=== PATIENT | female | born 1935 | race Caucasian/White ===

== ENCOUNTER → 2017-09-17 16:14 | Outpatient (CLI) | payer MEDICARE, SELFPAY ==
--- NOTE | 2017-09-17 16:22 | RAD_ITS ---
STUDY: X-RAY CHEST REASON FOR EXAM: Female, 82 years old. Cough TECHNIQUE: Frontal and lateral views of the chest were obtained. COMPARISON: August 09, 2015 FINDINGS: The lungs are hyperinflated. There are patchy airspace opacities in the right lung base. There is minimal blunting of the right costophrenic angle. The cardiac silhouette is normal in size. The mediastinum and hilar regions are unremarkable. Normal visualized pulmonary arteries. There is atherosclerotic calcification of the thoracic aorta. Sternotomy wires are present. There are diffuse degenerative changes of the visualized spine. The visualized ribs, clavicles, and shoulders are unremarkable. There is no demonstrated abnormality of the visualized upper abdomen. RAD/Chest PA and Lateral IMPRESSION: There is consolidation in the right lung base, likely pneumonia. There is a small right pleural effusion. Follow-up images are recommended after treatment. Stable COPD. Electronically Signed: Myrna San MD at 10:41 EDT Tel Direct: [phone], Service support ,
== END ==
PROVIDERS: Family Provider Family Medicine Geriatric Medicine; PCP Family Medicine Geriatric Medicine; Visit Provider Family Medicine Geriatric Medicine
DX: R05 Cough (principal); J11.1 Influenza due to unidentified influenza virus with other respiratory manifestations
CPT/HCPCS: 71046; 87633

== ENCOUNTER → 2017-10-22 14:18 | Outpatient (CLI) | payer MEDICARE, SELFPAY ==
--- NOTE | 2017-10-22 14:23 | RAD_ITS ---
STUDY: X-RAY CHEST REASON FOR EXAM: Female, 82 years old. Cough, shortness of breath. TECHNIQUE: PA and lateral views of the chest. COMPARISON: PA and lateral chest x-ray September 17, 2017. FINDINGS: The lungs are deeply expanded. Chronic appearing bibasilar fibronodular interstitial changes are again seen, greater on the right. There is clearing of the airspace component, and no new alveolar infiltrate is present. There is no demonstrated pleural abnormality. Normal size heart. Sternal cerclage wires are present from a prior sternotomy. Normal mediastinum and bar. Normal visualized pulmonary arteries. Normal visualized aortic arch and descending thoracic aorta. There are stable diffuse degenerative changes of the visualized thoracic spine. Normal visualized ribs, clavicles, and shoulders. There is no demonstrated abnormality of the visualized soft tissue structures of the upper abdomen. RAD/Chest PA and Lateral IMPRESSION: 1. Improved inspiratory effort with interval clearing of the alveolar component of patchy right base density since prior study. Chronic appearing bibasilar fibronodular interstitial changes persist, greater on the right. 2. Prior median sternotomy. Heart size and upper pulmonary vascular pattern normal. Electronically Signed: Jayden Monique MD at 15:52 EDT , Service support ,
[2017-10-22 16:44] LABS: Absolute Lymphocyte Count 6.59 X10^3/ul (0.83-4.51); Absolute Neutrophil Count 3.1 X10^3/uL (2.0-7.7); Basophil# 0.23 X10^3/uL; Basophil% 2.1 % (0-1); Eosinophil# 0.07 X10^3/uL; Eosinophils% 0.6 % (0-5); Hematocrit 35.5 % (37-47); Hemoglobin 11.5 g/dl (12.0-15.0); Lymphocyte # 6.59 X10^3/ul (4.0); Lymphocyte % 59.1 % (19-41); Mean Corp Hgb Conc 32.4 g/gl (32-36); Mean Corpuscular Hgb 30.1 pg (27.0-32.0); Mean Corpuscular Volume 92.9 fL (81-99); Mean Platelet Vol. 10.2 fl (6.2-12.0); Monocyte# 1.11 X10^3/uL; Neutrophil # 3.13 X10^3/uL (2.7-7.7); Platelet Count 251 K/mm3 (150-450); RBC Distribution Width CV 14.5 % (11.6-14.6); RBC Distribution Width SD 49.1 fl (35.1-43.9); Red Blood Count 3.82 M/mm3 (4.2-5.4); White Blood Count 11.2 K/mm3 (4.4-11.0)
[2017-10-22 16:54] LABS: Anion Gap 8 (5-15); BUN 11 mg/dL (7-18); BUN/Creat Ratio 12.3 RATIO (10-20); Calcium,Total 7.7 mg/dL (8.5-10.1); Chloride 107 mmol/L (98-107); EST Glomerular Filtration Rate 64 mL/min (>60); Est Glom Filt Rate - Afr Amer 78 mL/min (>60); Glucose 90 mg/dL (74-106); Potassium 3.4 mmol/L (3.5-5.1); Sodium Level 142 mmol/L (136-145)
[2017-10-22 17:10] LABS: Differential Indicated SCAN CRITERIA MET; POSITIVE COUNT NO; POSITIVE DIFFERENTIAL YES; POSITIVE MORPHOLOGY NO
[2017-10-22 19:05] LABS: Differential Comment SCANNED; Platelet Estimate ADEQUATE (ADEQ); Smudge Cells 2+
[2017-10-22 19:06] LABS: Acanthocytes 1+
[2017-10-23 13:20] LABS: Pathologist Review Reviewed
== END ==
PROVIDERS: Family Provider Family Medicine Geriatric Medicine; PCP Family Medicine Geriatric Medicine; Visit Provider Family Medicine Geriatric Medicine
DX: J40 Bronchitis, not specified as acute or chronic (principal); R11.0 Nausea; R68.83 Chills (without fever)
CPT/HCPCS: 36415; 71046; 80048; 85025; 87633

== ENCOUNTER → 2017-10-24 12:41 | Outpatient (CLI) | payer MEDICARE, SELFPAY ==
--- NOTE | 2017-10-24 12:55 | RAD_ITS ---
STUDY: SWALLOWING STUDY REASON FOR EXAM: Female, 82 years old. Dysphagia. TECHNIQUE: The examination was performed with Speech Pathology in attendance. Under fluoroscopic observation, the patient ingested thin barium, thick barium, barium pudding, and barium coated cracker. FLUOROSCOPY TIME: 1:44 minutes/seconds. 1519 spot images were obtained. RADIOLOGIST INVOLVEMENT: Radiologist was present and providing direct supervision. COMPARISON: None. FINDINGS: The following was observed during swallowing of the various mixtures of barium: Thin Barium: There was no evidence of aspiration or laryngeal penetration. Barium Pudding: There was no evidence of aspiration or laryngeal penetration. Barium Coated Cracker: There was no evidence of aspiration or laryngeal penetration. RAD/Swallowing Function w/Video IMPRESSION: Normal tailored barium swallow study. No evidence of increased risk for aspiration. The swallow study findings were discussed with the patient by the speech pathologist at the conclusion of the examination. Please see speech pathology report for more information and recommendations. Electronically Signed: Olivier Maradiaga MD at 8:56 EDT Tel [phone], Service support ,
--- NOTE | 2017-10-24 12:55 | SP.MBSS_ITS ---
PRIMARY / SECONDARY DIAGNOSIS: dysphagia (R13.10) REFERRING PHYSICIAN: Dr. Shannan Zimmerman MD CURRENT DIET: regular textures, thin liquids DENTITION: WFL MENTAL STATUS: sufficient to participate in study RESPIRATORY STATUS: O2 via room air PREVIOUS MODIFIED BARIUM SWALLOW STUDY: none REASON FOR REFERRAL: Patient is an 82 year old female referred for a modified barium swallow (MBS) study to objectively assess the Patients oropharyngeal swallow function under fluoroscopy secondary to the diagnosis of Parkinsons disease. Patient well known to this clinician from previous intervention with the Patients spouse; Patient reporting no issues with PO intake, denies any coughing / throat clearing during PO intake, though may not be able to fully recall; reports recent 10lb unintentional weight loss over the last 2-3 months (unable to recall weight, Patient clearly not overweight). 10/22/2017 CXR revealed improved inspiratory effort with interval clearing of the alveolar component of patchy right base density since prior study; chronic appearing bibasilar fibronodular interstitial changes persist, greater on the right. MEDICAL HISTORY: Parkinsons disease, hypertension, hyperlipidemia. STUDY FINDINGS: Patient participated in a Modified Barium Swallow (MBS) study on 10/24/2017. Dr. Maradiaga was the radiologist present for this evaluation. This study was recorded in the lateral view and images were sent to PACs for storage. The following consistencies were presented to this patient for analysis of oropharyngeal swallow function: thin liquids, pudding, and a regular textured, Humera Doone cookie. Results of the MBS are as follows: PENETRATION / ASPIRATION SCALE (HATHAWAY): 1 = does not enter airway 2 = enters airway/above vocal folds/ejected 3 = enters airway/above vocal folds/not ejected 4 = enters airway/contacts vocal folds/ejected 5 = enters airway/contacts vocal folds/not ejected 6 = enters airway/below vocal folds/ejected 7 = enters airway/below vocal folds/not ejected despite effort 8 = enters airway/below vocal folds/no effort PENETRATION / ASPIRATION SCALE (SCORE) WITH VIDEOFLOROSCOPIC SCALE SCORE: Thin liquid - 5 mL tsp.: 1 Thin liquids via cup (single sip): 1 Thin liquids via cup (single sip): 2 Thin liquids via cup (single sip): 1 Thin liquids via straw (sequential swallows): 4 Thin liquids via straw (single sip): 1 Pudding via spoon: 1 Regular textured cookie: 1 Thin liquids via cup (single sip): 2 Thin liquids via cup (single sip): 2 Thin liquids via cup (chin tuck): 1 Thin liquids via cup (chin tuck): 1 IMPRESSION: DIAGNOSIS: very mild pharyngeal dysphagia (R13.13) ORAL PHASE CHARACTERIZED BY: LABIAL SEAL: no labial escape TONGUE CONTROL DURING BOLUS MANIPULATION: cohesive bolus between tongue to palatal seal BOLUS PREPARATION / MASTICATION: timely and efficient chewing and mashing BOLUS TRANSPORT / LINGUAL MOTION: brisk tongue motion ORAL RESIDUE: trace residue lining oral structures PHARYNGEAL PHASE CHARACTERIZED BY: INITIATION OF PHARYNGEAL SWALLOW: bolus head in valleculae at first hyoid excursion SOFT PALATE ELEVATION: no bolus between soft palate and pharyngeal wall LARYNGEAL ELEVATION: complete superior movement of thyroid cartilage with complete approximation of arytenoids cartilage to epiglottic petiole ANTERIOR HYOID EXCURSION: complete anterior movement EPIGLOTTIC MOVEMENT: complete epiglottic inversion LARYNGEAL VESTIBULE CLOSURE AT HEIGHT OF SWALLOW: complete laryngeal vestibule closure with no air/contrast in laryngeal vestibule PHARYNGEAL STRIPPING WAVE: pharyngeal stripping wave present / complete PHARYNGOESOPHAGEAL SEGMENT OPENING: complete distension and complete duration with no obstruction of flow TONGUE BASE RETRACTION: trace column of contrast between tongue base and posterior pharyngeal wall PHARYNGEAL RESIDUE: collection of residue within or on pharyngeal structures ( posterior tongue base with pureed textures only); trace residue within or on pharyngeal structures ESOPHAGEAL PHASE CHARACTERIZED BY: ESOPHAGEAL BOLUS CLEARANCE IN THE UPRIGHT POSITION: could not view EFFECTS OF TREATMENT STRATEGIES ATTEMPTED: Chin tuck posture = effective Reduced bolus size = effective DIET TEXTURE RECOMMENDATIONS: Will recommend a regular textured, thin liquid diet. COMPENSATORY STRATEGIES RECOMMENDED: Chin tuck with thin liquids, reduced bolus volume, seated upright at 90 degrees during PO intake INTERPRETATION OF RESULTS: Patient presents with very mild pharyngeal dysphagia (R13.13) secondary to the diagnosis of Parkinsons disease. Oral phase unremarkable. Pharyngeal phase marked by mild delay in pharyngeal swallow onset timing resulting in suboptimal bolus location upon swallow onset contributing to pre-prandial and prandial penetration with complete ejection; otherwise unremarkable. All deficits ameliorated with bolus volume adjustments and execution of the chin tuck posture. RECOMMENDATIONS: Patient able to comprehend and express recommended intake precautions detailed above with sufficient detail to suggest high likelihood of compliance. Provided brief overview of signs and symptoms of aspiration, with recommendations for the Patient to further discuss symptoms with PCP. Discussed importance of ambulation maintenance, encouraged to participate in exercise activities, with consideration for enrollment in Delay the Disease. Would further consider outpatient intervention via [facility] ([facility]) when appropriate. No further skilled speech-language services warranted at this time targeting dysphagia. ADDITIONAL COMMENTS/RECOMMENDATIONS: Results and recommendations were discussed with the Patient immediately following MBS completion, with the Patient verbalizing understanding and agreement with all recommendations and education provided. IMAGE COUNT: [id number] G-CODES: SWALLOWING G8996 Current Status: SWALLOWING G8997 Goal Status: SWALLOWING G8998 Discharge Status:
== END ==
PROVIDERS: Family Provider Family Medicine Geriatric Medicine; PCP Family Medicine Geriatric Medicine; Visit Provider Family Medicine Geriatric Medicine
DX: R13.10 Dysphagia, unspecified (principal)
CPT/HCPCS: 74230; 92611; G8996; G8997; G8998

== ENCOUNTER → 2017-12-03 16:59 | Outpatient (CLI) | payer MEDICARE, SELFPAY ==
[2017-12-03 17:26] LABS: Absolute Lymphocyte Count 4.45 X10^3/ul (0.83-4.51); Absolute Neutrophil Count 8.2 X10^3/uL (2.0-7.7); Basophil# 0.19 X10^3/uL; Basophil% 1.3 % (0-1); Eosinophil# 0.06 X10^3/uL; Eosinophils% 0.4 % (0-5); Hematocrit 37.6 % (37-47); Hemoglobin 12.5 g/dl (12.0-15.0); Lymphocyte # 4.45 X10^3/ul (4.0); Lymphocyte % 30.6 % (19-41); Mean Corp Hgb Conc 33.2 g/gl (32-36); Mean Corpuscular Volume 93.3 fL (81-99); Mean Platelet Vol. 9.4 fl (6.2-12.0); Monocyte# 1.43 X10^3/uL; Monocyte% 9.8 % (0-10); Neutrophil # 8.22 X10^3/uL (2.7-7.7); Neutrophil % 56.7 % (47-70); Platelet Count 351 K/mm3 (150-450); RBC Distribution Width CV 15.4 % (11.6-14.6); RBC Distribution Width SD 50.6 fl (35.1-43.9); Red Blood Count 4.03 M/mm3 (4.2-5.4); White Blood Count 14.5 K/mm3 (4.4-11.0)
[2017-12-03 17:31] LABS: POSITIVE COUNT NO; POSITIVE DIFFERENTIAL NO; POSITIVE MORPHOLOGY NO
[2017-12-03 17:43] LABS: Vitamin D,25 Hydroxy 38.8 ng/mL (29.95-100.01)
[2017-12-03 17:46] LABS: AST(SGOT) 20 U/L (15-37); Alanine Aminotransfer ALT/SGPT 8 U/L (13-56); Albumin, Serum 3.3 g/dL (3.2-5.0); Alkaline Phosphatase 59 U/L (45-117); Anion Gap 4 (5-15); BUN 23 mg/dL (7-18); BUN/Creat Ratio 26.3 RATIO (10-20); Calcium,Total 8.8 mg/dL (8.5-10.1); Chloride 108 mmol/L (98-107); Creatinine, Serum 0.87 mg/dL (0.55-1.02); EST Glomerular Filtration Rate 66 mL/min (>60); Est Glom Filt Rate - Afr Amer 80 mL/min (>60); Globulin 3.2 g/dL (2.2-4.2); Glucose 95 mg/dL (74-106); Potassium 3.9 mmol/L (3.5-5.1); Protein, Total 6.5 g/dL (6.4-8.2); Sodium Level 140 mmol/L (136-145); Thyroid Stim Hormone (TSH) 1.39 uIU/mL (0.358-3.74)
== END ==
PROVIDERS: Family Provider Family Medicine Geriatric Medicine; PCP Family Medicine Geriatric Medicine; Visit Provider Family Medicine Geriatric Medicine
DX: E55.9 Vitamin D deficiency, unspecified (principal); R53.83 Other fatigue
CPT/HCPCS: 36415; 80053; 82306; 84443; 85025

== ENCOUNTER → 2017-12-10 15:07 | Outpatient (CLI) | payer MEDICARE, SELFPAY ==
[2017-12-10 16:33] LABS: Absolute Lymphocyte Count 3.58 X10^3/ul (0.83-4.51); Absolute Neutrophil Count 8.4 X10^3/uL (2.0-7.7); Basophil# 0.12 X10^3/uL; Basophil% 0.9 % (0-1); Eosinophil# 0.04 X10^3/uL; Eosinophils% 0.3 % (0-5); Hematocrit 37.3 % (37-47); Hemoglobin 12.2 g/dl (12.0-15.0); Lymphocyte # 3.58 X10^3/ul (4.0); Lymphocyte % 26.4 % (19-41); Mean Corp Hgb Conc 32.7 g/gl (32-36); Mean Corpuscular Hgb 30.7 pg (27.0-32.0); Mean Platelet Vol. 10.4 fl (6.2-12.0); Monocyte# 1.28 X10^3/uL; Monocyte% 9.4 % (0-10); Neutrophil # 8.43 X10^3/uL (2.7-7.7); Neutrophil % 62.1 % (47-70); Platelet Count 304 K/mm3 (150-450); RBC Distribution Width CV 15.5 % (11.6-14.6); RBC Distribution Width SD 51.4 fl (35.1-43.9); Red Blood Count 3.97 M/mm3 (4.2-5.4); White Blood Count 13.6 K/mm3 (4.4-11.0)
[2017-12-10 16:36] LABS: POSITIVE COUNT NO; POSITIVE DIFFERENTIAL NO; POSITIVE MORPHOLOGY NO
[2017-12-10 16:40] LABS: AST(SGOT) 22 U/L (15-37); Alanine Aminotransfer ALT/SGPT 16 U/L (13-56); Albumin, Serum 3.1 g/dL (3.2-5.0); Alkaline Phosphatase 53 U/L (45-117); Anion Gap 6 (5-15); BUN 21 mg/dL (7-18); Calcium,Total 8.5 mg/dL (8.5-10.1); Chloride 104 mmol/L (98-107); Creatinine, Serum 0.91 mg/dL (0.55-1.02); EST Glomerular Filtration Rate 63 mL/min (>60); Est Glom Filt Rate - Afr Amer 76 mL/min (>60); Globulin 3.2 g/dL (2.2-4.2); Glucose 86 mg/dL (74-106); Potassium 3.9 mmol/L (3.5-5.1); Protein, Total 6.3 g/dL (6.4-8.2); Sodium Level 142 mmol/L (136-145)
[2017-12-10 16:43] LABS: BNP,B-Type NATRIURETIC PEPTIDE 155.6 pg/mL (0-100)
== END ==
PROVIDERS: Family Provider Family Medicine Geriatric Medicine; PCP Family Medicine Geriatric Medicine; Visit Provider Family Medicine Geriatric Medicine
DX: R06.02 Shortness of breath (principal); R60.9 Edema, unspecified
CPT/HCPCS: 36415; 80053; 83880; 85025

== ENCOUNTER → 2018-01-07 08:26 | Outpatient (CLI) | payer MEDICARE, SELFPAY ==
[2018-01-07 09:36] LABS: AST(SGOT) 21 U/L (15-37); Alanine Aminotransfer ALT/SGPT 9 U/L (13-56); Albumin, Serum 3.3 g/dL (3.2-5.0); Alkaline Phosphatase 64 U/L (45-117); Anion Gap 10 (5-15); BUN 25 mg/dL (7-18); BUN/Creat Ratio 26.9 RATIO (10-20); Bilirubin, Direct 0.13 mg/dL (0.00-0.30); Calcium,Total 9.1 mg/dL (8.5-10.1); Chloride 104 mmol/L (98-107); Cholesterol 170 mg/dL (200); Creatinine, Serum 0.93 mg/dL (0.55-1.02); EST Glomerular Filtration Rate 61 mL/min (>60); Est Glom Filt Rate - Afr Amer 74 mL/min (>60); Globulin 3.7 g/dL (2.2-4.2); Glucose 87 mg/dL (74-106); High Density Lipoprotein 75 mg/dL; Potassium 3.9 mmol/L (3.5-5.1); Sodium Level 144 mmol/L (136-145); Triglycerides 85 mg/dL; Very Low Density Lipoprotein 17 mg/dL (5-40)
== END ==
PROVIDERS: Family Provider Family Medicine Geriatric Medicine; PCP Family Medicine Geriatric Medicine; Visit Provider Internal Medicine Cardiovascular Disease
DX: R60.9 Edema, unspecified (principal); I49.1 Atrial premature depolarization; E78.5 Hyperlipidemia, unspecified; I34.8 Other nonrheumatic mitral valve disorders; I36.1 Nonrheumatic tricuspid (valve) insufficiency; I49.3 Ventricular premature depolarization; R01.1 Cardiac murmur, unspecified; R00.2 Palpitations; Z79.899 Other long term (current) drug therapy; R55 Syncope and collapse
CPT/HCPCS: 36415; 80048; 80061; 80076

== ENCOUNTER → 2018-01-15 10:59 | Outpatient (CLI) | payer MEDICARE, SELFPAY ==
--- NOTE | 2018-01-15 11:00 | ECHOD_ITS ---
Reason For Study: MVP Procedure This was a 2D Doppler, Color Flow transthoracic echocardiogram. The exam was of fair technical quality due to diminished acoustic windows. Exam performed in department. Left Ventricle Normal LV size. Left ventricular systolic function is lower limits of normal. The estimated ejection fraction is 50 %. Diastolic function: considered indeterminate. No regional wall motion abnormalities noted. Right Ventricle Normal RV size. Normal systolic function. Atria The left atrium is mildly enlarged. The right atrium is moderately enlarged. No doppler evidence for ASD. Mitral Valve There is no mitral annular calcification. Mild diffuse mitral valve thickening. Mild mitral valve prolapse, posterior leaflet. Mild (1+) mitral valve insufficiency. Tricuspid Valve Normal tricuspid valve. Moderate (2+) eccentric tricuspid valve insufficiency. Right ventricular systolic pressure estimated to be 35 mmHg. Aortic Valve Trisinus/trileaflet aortic valve. Normal aortic valve. Trivial aortic valve insufficiency. Pulmonic Valve The pulmonic valve is not well visualized. Mild (1+) pulmonic valve insufficiency. Great Vessels Normal sized aortic root. Pericardium/Pleural No pericardial effusion. MMode/2D Measurements & Calculations LVIDd: 4.6 cm IVSd: 0.70 cm Ao root diam: 3.1 cm LVIDs: 3.1 cm LVPWd: 0.91 cm LA dimension: 3.9 cm FS: 32.3 % LAV(MOD-bp): 45.4 ml LA A4 area: 19.3 cm2 RA A4 area: 21.9 cm2 LAV(MOD-bp) Indexed: 31.9 ml/m2 LAV(MOD-sp2): 34.0 ml LAV(MOD-sp4): 50.2 ml Time Measurements MV dec time: 0.27 sec Doppler Measurements & Calculations MV E max alex: 66.9 cm/sec Lat Peak E' Alex: 9.7 cm/sec Med Peak E' Alex: 6.4 cm/sec MV A max alex: 82.5 cm/sec E/E' lat: 6.9 E/E' med: 10.5 MV E/A: 0.81 MV V2 max: 79.2 cm/sec MV P1/2t max alex: 74.4 cm/sec Ao V2 max: 160.1 cm/sec MV max P.5 mmHg MV P1/2t: 107.3 msec Ao max P.2 mmHg MV V2 mean: 41.7 cm/sec MV dec slope: 203.0 cm/sec2 Ao V2 mean: 93.3 cm/sec MV mean P.83 mmHg MVA(P1/2t): 2.1 cm2 Ao mean P.1 mmHg MV V2 VTI: 31.8 cm Ao V2 VTI: 32.4 cm AI max alex: 431.8 cm/sec LV V1 max: 101.5 cm/sec PA V2 max: 82.0 cm/sec AI max P.6 mmHg LV V1 max P.1 mmHg AI dec slope: 193.5 cm/sec2 LV V1 mean P.7 mmHg AI P1/2t: 653.6 msec LV V1 mean: 57.9 cm/sec LV V1 VTI: 22.0 cm TR max alex: 261.5 cm/sec TR max P.4 mmHg Interpretation Summary Left ventricular systolic function is lower limits of normal. The estimated ejection fraction is 50 %. The left atrium is mildly enlarged. The right atrium is moderately enlarged. Mild mitral valve prolapse, posterior leaflet Mild diffuse mitral valve thickening. Mild (1+) mitral valve insufficiency. Moderate (2+) eccentric tricuspid valve insufficiency. Trivial aortic valve insufficiency. Mild (1+) pulmonic valve insufficiency. Right ventricular systolic pressure estimated to be 35 mmHg. Diastolic function: considered indeterminate. Ordering Physician: Bart Olivarez Referring Physician: Bart Olivarez Performed By: Pavel Kern RCS
== END ==
PROVIDERS: Family Provider Family Medicine Geriatric Medicine; PCP Family Medicine Geriatric Medicine; Visit Provider Internal Medicine Cardiovascular Disease
DX: I49.3 Ventricular premature depolarization (principal); I34.1 Nonrheumatic mitral (valve) prolapse; I34.0 Nonrheumatic mitral (valve) insufficiency; I36.1 Nonrheumatic tricuspid (valve) insufficiency
CPT/HCPCS: 93306

== ENCOUNTER → 2018-11-07 | Outpatient (CLI) | payer MEDICARE, SELFPAY ==
[2018-05-27 13:51] VITALS: BMI 19.9
[2018-11-07 17:50] LABS: Absolute Lymphocyte Count 5.66 X10^3/ul (0.83-4.51); Absolute Neutrophil Count 3.5 X10^3/uL (2.0-7.7); Basophil# 0.35 X10^3/uL; Basophil% 3.1 % (0-1); Eosinophil# 0.27 X10^3/uL; Eosinophils% 2.4 % (0-5); Hematocrit 38.4 % (37-47); Hemoglobin 12.5 g/dl (12.0-15.0); Lymphocyte # 5.66 X10^3/ul (4.0); Lymphocyte % 49.6 % (19-41); Mean Corp Hgb Conc 32.6 g/gl (32-36); Mean Corpuscular Hgb 29.1 pg (27.0-32.0); Mean Corpuscular Volume 89.5 fL (81-99); Mean Platelet Vol. 10.1 fl (6.2-12.0); Monocyte# 1.58 X10^3/uL; Monocyte% 13.8 % (0-10); Neutrophil # 3.54 X10^3/uL (2.7-7.7); Neutrophil % 30.9 % (47-70); Platelet Count 312 K/mm3 (150-450); RBC Distribution Width CV 14.1 % (11.6-14.6); RBC Distribution Width SD 45.5 fl (35.1-43.9); Red Blood Count 4.29 M/mm3 (4.2-5.4); White Blood Count 11.4 K/mm3 (4.4-11.0)
[2018-11-07 17:54] LABS: Vitamin D,25 Hydroxy 54.3 ng/mL (29.95-100.01)
[2018-11-07 17:55] LABS: Differential Indicated SCAN CRITERIA MET; POSITIVE COUNT NO; POSITIVE DIFFERENTIAL YES; POSITIVE MORPHOLOGY NO
[2018-11-07 18:02] LABS: ALB/GLOB Ratio 0.9 RATIO (0.9-2.4); AST(SGOT) 31 U/L (15-37); Alanine Aminotransfer ALT/SGPT 17 U/L (13-56); Albumin, Serum 3.2 g/dL (3.2-5.0); Alkaline Phosphatase 90 U/L (45-117); Anion Gap 6 (5-15); BUN 18 mg/dL (7-18); BUN/Creat Ratio 17.6 RATIO (10-20); Calcium,Total 8.6 mg/dL (8.5-10.1); Chloride 105 mmol/L (98-107); Creatinine, Serum 1.02 mg/dL (0.55-1.02); EST Glomerular Filtration Rate 55 mL/min (>60); Est Glom Filt Rate - Afr Amer 67 mL/min (>60); Globulin 3.4 g/dL (2.2-4.2); Glucose 105 mg/dL (74-106); Potassium 4.2 mmol/L (3.5-5.1); Protein, Total 6.6 g/dL (6.4-8.2); Sodium Level 140 mmol/L (136-145); Thyroid Stim Hormone (TSH) 2.21 uIU/mL (0.358-3.74)
[2018-11-07 18:57] LABS: Differential Comment SCANNED
== END | disposition home or self-care (01) ==
PROVIDERS: Family Provider Family Medicine Geriatric Medicine; PCP Family Medicine Geriatric Medicine; Visit Provider Family Medicine Geriatric Medicine
DX: E55.9 Vitamin D deficiency, unspecified (principal); R53.83 Other fatigue
CPT/HCPCS: 36415; 80053; 82306; 84443; 85025

== ENCOUNTER → 2019-03-03 14:40 | Outpatient (CLI) | payer MEDICARE, SELFPAY ==
[2018-11-20 13:16] VITALS: BMI 19.9
[2019-03-03 17:12] LABS: Absolute Lymphocyte Count 5.35 X10^3/uL (0.83-4.51); Absolute Neutrophil Count 4.9 X10^3/uL (2.0-7.7); Basophil# 0.33 X10^3/uL; Basophil% 2.7 % (0-1); Eosinophil# 0.19 X10^3/uL; Eosinophils% 1.6 % (0-5); Hematocrit 38.1 % (37-47); Hemoglobin 12.5 g/dL (12.0-15.0); Lymphocyte # 5.35 X10^3/ul (4.0); Lymphocyte % 44.3 % (19-41); Mean Corp Hgb Conc 32.8 g/dL (32-36); Mean Corpuscular Hgb 30.6 pg (27.0-32.0); Mean Corpuscular Volume 93.2 fL (81-99); Mean Platelet Vol. 10.8 fl (6.2-12.0); Monocyte# 1.23 X10^3/uL; Monocyte% 10.2 % (0-10); NRBC Flagged by Analyzer 0 % (0-5); Neutrophil # 4.94 X10^3/uL (2.7-7.7); Neutrophil % 40.9 % (47-70); POSITIVE DIFFERENTIAL YES; Platelet Count 303 K/mm3 (150-450); RBC Distribution Width CV 13.9 % (11.6-14.6); RBC Distribution Width SD 47.7 fl (35.1-43.9); Red Blood Count 4.09 M/mm3 (4.2-5.4); White Blood Count 12.1 K/mm3 (4.4-11.0)
[2019-03-03 17:37] LABS: Differential Indicated SCAN CRITERIA MET
[2019-03-03 17:39] LABS: AST(SGOT) 29 U/L (15-37); Alanine Aminotransfer ALT/SGPT 12 U/L (13-56); Albumin, Serum 3.2 g/dL (3.2-5.0); Alkaline Phosphatase 85 U/L (45-117); Anion Gap 9 (5-15); BUN 17 mg/dL (7-18); BUN/Creat Ratio 17.5 RATIO (10-20); Calcium,Total 8.7 mg/dL (8.5-10.1); Chloride 104 mmol/L (98-107); Creatinine, Serum 0.97 mg/dL (0.55-1.02); EST Glomerular Filtration Rate 58 mL/min (>60); Est Glom Filt Rate - Afr Amer 70 mL/min (>60); Globulin 3.3 g/dL (2.2-4.2); Glucose 82 mg/dL (74-106); Potassium 3.9 mmol/L (3.5-5.1); Protein, Total 6.5 g/dL (6.4-8.2); Sodium Level 141 mmol/L (136-145); Thyroid Stim Hormone (TSH) 1.65 uIU/mL (0.358-3.74)
[2019-03-03 18:06] LABS: Acanthocytes RARE; Anisocytosis RARE; Macrocytosis RARE; Ovalocyte RARE; Platelet Estimate ADEQUATE (ADEQ); Red Cell Morphology N CHROM NORMAL (NORM C&C)
[2019-03-05 13:59] LABS: Pathologist Review Reviewed
== END ==
PROVIDERS: Family Provider Family Medicine Geriatric Medicine; PCP Family Medicine Geriatric Medicine; Visit Provider Family Medicine Geriatric Medicine
DX: R53.83 Other fatigue (principal)
CPT/HCPCS: 36415; 80053; 84443; 85025

== ENCOUNTER → 2019-05-08 15:29 | Outpatient (CLI) | payer MEDICARE, SELFPAY ==
[2019-04-22 13:25] VITALS: BMI 20.5
[2019-05-08 17:29] LABS: Absolute Lymphocyte Count 5.97 X10^3/uL (0.83-4.51); Absolute Neutrophil Count 4.4 X10^3/uL (2.0-7.7); Basophil# 0.29 X10^3/uL; Basophil% 2.3 % (0-1); Eosinophil# 0.25 X10^3/uL; Hematocrit 38.1 % (37-47); Hemoglobin 12.3 g/dL (12.0-15.0); Lymphocyte # 5.97 X10^3/ul (4.0); Lymphocyte % 47.9 % (19-41); Mean Corp Hgb Conc 32.3 g/dL (32-36); Mean Corpuscular Hgb 30.3 pg (27.0-32.0); Mean Corpuscular Volume 93.8 fL (81-99); Mean Platelet Vol. 10.1 fl (6.2-12.0); Monocyte# 1.57 X10^3/uL; Monocyte% 12.6 % (0-10); NRBC Flagged by Analyzer 0 % (0-5); Neutrophil # 4.36 X10^3/uL (2.7-7.7); POSITIVE DIFFERENTIAL YES; Platelet Count 316 K/mm3 (150-450); RBC Distribution Width SD 48.4 fl (35.1-43.9); Red Blood Count 4.06 M/mm3 (4.2-5.4); White Blood Count 12.5 K/mm3 (4.4-11.0)
[2019-05-08 17:42] LABS: Vitamin D,25 Hydroxy 51.2 ng/mL (29.95-100.01)
[2019-05-08 17:47] LABS: AST(SGOT) 33 U/L (15-37); Alanine Aminotransfer ALT/SGPT 16 U/L (13-56); Albumin, Serum 3.4 g/dL (3.2-5.0); Alkaline Phosphatase 83 U/L (45-117); Anion Gap 7 (5-15); BUN 18 mg/dL (7-18); BUN/Creat Ratio 17.5 RATIO (10-20); Calcium,Total 8.8 mg/dL (8.5-10.1); Chloride 102 mmol/L (98-107); Creatinine, Serum 1.03 mg/dL (0.55-1.02); EST Glomerular Filtration Rate 54 mL/min (>60); Est Glom Filt Rate - Afr Amer 66 mL/min (>60); Globulin 3.4 g/dL (2.2-4.2); Glucose 105 mg/dL (74-106); Potassium 4.1 mmol/L (3.5-5.1); Protein, Total 6.8 g/dL (6.4-8.2); Sodium Level 138 mmol/L (136-145); Thyroid Stim Hormone (TSH) 1.92 uIU/mL (0.358-3.74)
[2019-05-08 17:50] LABS: Differential Indicated SCAN CRITERIA MET
[2019-05-08 18:06] LABS: Differential Comment SEE COMMENTS
[2019-05-08 18:07] LABS: Anisocytosis RARE; Macrocytosis RARE; Platelet Estimate ADEQUATE (ADEQ); Red Cell Morphology N CHROM NORMAL (NORM C&C)
[2019-05-08 18:08] LABS: Ovalocyte RARE
[2019-05-09 13:18] LABS: Pathologist Review Reviewed
== END ==
PROVIDERS: Family Provider Family Medicine Geriatric Medicine; PCP Family Medicine Geriatric Medicine; Visit Provider Family Medicine Geriatric Medicine
DX: R53.83 Other fatigue (principal); E55.9 Vitamin D deficiency, unspecified
CPT/HCPCS: 36415; 80053; 82306; 84443; 85025

== ENCOUNTER 2019-06-17 13:39 | Emergency (ER) | payer MEDICARE, SELFPAY ==
[2019-05-21 12:45] VITALS: BMI 20.1
[2019-06-17 13:40] VITALS: BP 138/112; PULSE 64; RESP 16; TEMP 36.4; O2SAT 98; BMI 21.2
--- NOTE | 2019-06-17 13:58 | CT_ITS ---
STUDY: CT BRAIN WITHOUT CONTRAST REASON FOR EXAM: Female, 84 years old. Tripped and fell today, laceration to left eye, near syncope after fall. Hx Parkinson''s disease. RADIATION DOSAGE (If Supplied By Facility): CTDIvol = ( 44.99 ) mGy, DLP = ( 745.49 ) mGycm TECHNIQUE: Transaxial CT imaging of the brain was performed without administration of intravenous contrast material. Individualized dose optimization techniques were used for this CT. COMPARISON: October 16, 2012. FINDINGS: Normal soft tissue structures. Normal calvarium. Normal size ventricles and extra-axial spaces for the patient''s age. There are areas of decreased attenuation within the white matter tracts of the supratentorial brain, consistent with microvascular disease changes. There are small punctate calcifications of the basal ganglia which are seen in the aging brain as a normal variant. Normal brainstem. Normal cerebellum. There is no intracranial hemorrhage. There is no large vessel territory ischemia/edema. Normal visualized paranasal sinuses. CT/Brain/Head without Contrast IMPRESSION: No CT evident acute intracranial pathology. Chronic involutional changes. Electronically Signed: Anup Strauss MD at 14:40 EST , Service support ,
--- NOTE | 2019-06-17 13:59 | RAD_ITS ---
STUDY: X-RAY - LEFT KNEE REASON FOR EXAM: Female, 84 years old. Fall today. Hand and knee pain. TECHNIQUE: 4 view(s) of the knee. COMPARISON: None. FINDINGS: Normal visualized distal femur. Normal visualized proximal tibia and fibula. Normal proximal tibiofibular articulation. There is no acute fracture, dislocation or destructive osseous pathology. There is mild degenerative arthrosis of the medial femorotibial compartment. Normal lateral femorotibial compartment. There is mild degenerative arthrosis of the patellofemoral articulation. There is no demonstrated joint effusion. The soft tissue structures are unremarkable. RAD/Knee 4 or More Views IMPRESSION: Degenerative arthrosis. There is no acute fracture or dislocation. Electronically Signed: David Martin DO at 16:33 EST Tel [phone], Service support ,
--- NOTE | 2019-06-17 13:59 | RAD_ITS ---
STUDY: X-RAY - RIGHT HAND REASON FOR EXAM: Female, 84 years old. PT STATED FALL TODAY, HAND AND KNEE PAIN TECHNIQUE: 3 view(s) of the hand. COMPARISON: None. FINDINGS: There is significant diffuse demineralization. This diminishes sensitivity for detection of acute osseous abnormality. There is no definite acute fracture lucency or cortical step-off. There is severe thumb-base osteoarthritis with potential osteonecrosis of the trapezium manifested by loss of height and sclerosis. The soft tissue structures are unremarkable. RAD/Hand Min 3 Views IMPRESSION: Significant diffuse demineralization which diminishes sensitivity. No compelling evidence of acute osseous abnormality. 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 Potential osteonecrosis versus additional manifestation of osteoarthritis of the trapezium. Electronically Signed: Anup Strauss MD at 15:48 EST , Service support ,
--- NOTE | 2019-06-17 15:51 | ED.VIS.GEN ---
History of Present Illness Chief Complaint: Fall Informant: Patient Onset: Today Current Severity: Mild Maximum Severity: Mild Narrative: She presents after mechanical fall at the local pharmacy. As she was exiting the store she caught her toe and fell forward. She has an abrasion over her left knee and a small laceration to the left upper eyelid from her glasses. She also injured her right fourth finger. She recently had surgery on her right hand, approximately 3 weeks ago. Patient denies loss of consciousness from the fall. She states that she was sitting in a chair and they were cleaning her wound she did become lightheaded. She does not believe she passed out. 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 Comment: excision of Lt myxoma with pericardial patch of atrial septum 03/19/01 (3) Hyperlipidemia Status: Chronic (4) Nonrheumatic mitral (valve) prolapse Status: Chronic (5) Nonrheumatic mitral valve regurgitation Status: Chronic (6) Nonrheumatic tricuspid valve regurgitation Status: Chronic (7) Premature atrial contractions Status: Chronic (8) Premature ventricular contraction Status: Chronic Past Medical History - Allergies and Home Meds Allergies/Adverse Reactions: Allergies Penicillins Allergy (Verified 05/21/19 12:45) Rash tramadol Adverse Reaction (Unknown, Verified 05/21/19 12:45) Unknown Primary Care Physician: Howard Zimmerman Chi, MD [Primary Care Provider] - Prior records reviewed: Yes Surgical History: cholecystectomy Smoking Status: Never smoker Review of Systems General: Denies: Chills, Fever Eyes: Denies: Visual changes - bilaterally ENT: Denies: Bilateral ear pain Cardiovascular: Denies: Chest pain Respiratory: Denies: Dyspnea Gastrointestinal: Denies: Abdominal pain, Nausea, Vomiting Musculoskeletal: Reports: Extremity Pain. Denies: Neck pain, Back pain Skin: Reports: Wounds Neurological: Denies: Headache Hematologic: Denies: Easy bruising, Easy bleeding Physical Exam Vital Signs/Narrative: Vital Signs Temp Pulse Resp BP Pulse Ox 06/17/19 13:40 97.6 F L 64 16 138/112 H 98 Inital Vital Signs reviewed: Yes General: Well nourished, Well developed Head: Normocephalic Eyes: Perrl, EOMI, - - 2 cm long, superficial laceration to the left lateral upper eyelid. Extraocular movements are fully intact. ENT: Moist mucous membranes Neck: Supple, Nontender Cardiovascular: Regular rate, Regular rhythm Respiratory: No distress, CTA bilaterally Abdomen: Soft, Nontender Extremities: - - Mild tenderness location over the DIP joint of the right fourth finger. Normal cap refill distally and sensation. Healing surgical incision over the fourth metacarpal. Left lower extremity examination reveals a skin tear over the left anterior knee with mild edema. Full range of motion at the knee is noted. Neurological: Alert, Oriented x3 Psychological: Normal affect Diagnostic/Tx/Re-eval Chest X-Ray - ED: - Impressions Brain CT 06/17/19 13:58 IMPRESSION: No CT evident acute intracranial pathology. Chronic involutional changes. Electronically Signed: Anup Strauss MD at 14:40 EST , Service support , Hand X-Ray 06/17/19 13:59 IMPRESSION: Significant diffuse demineralization which diminishes sensitivity. No compelling evidence of acute osseous abnormality. 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 Potential osteonecrosis versus additional manifestation of osteoarthritis of the trapezium. Electronically Signed: Anup Strauss MD at 15:48 EST , Service support , 06/17/19 13:58 CT Head [Brain/Head without Contrast] [CT] Stat 06/17/19 13:59 Hand Min 3 Views [RAD] Stat Knee 4 or More Views [RAD] Stat - Medical Decision Making Left knee chest x-ray was also reviewed by myself. There is no evidence of acute bony injury. Arthritic changes are noted. Patient has been observed ambulating to the restroom and back without difficulty. Left knee wound was cleansed and dressed by nurse. Eyebrow laceration was cleansed and sealed with Dermabond. Patient will follow-up with primary care physician as well as hand surgeon. ED Disposition - Plan for ED Patient: Disposition: Home or Assisted Living Diagnosis: Fall, Eyelid laceration, Knee contusion Instructions: FALL, Mechanical, LACERATION, Face (Skin Glue), CONTUSION, Lower Extremity Referrals: Howard Zimmerman Chi, MD [Primary Care Provider] - 1 Week
== END 2019-06-17 16:08 | disposition home or self-care (01) ==
PROVIDERS: Emergency Provider Emergency Medicine; Family Provider Family Medicine Geriatric Medicine; PCP Family Medicine Geriatric Medicine
DX: S01.112A Laceration without foreign body of left eyelid and periocular area, initial encounter (principal); S80.02XA Contusion of left knee, initial encounter; S81.012A Laceration without foreign body, left knee, initial encounter; M19.041 Primary osteoarthritis, right hand; S69.91XA Unspecified injury of right wrist, hand and finger(s), initial encounter; Z98.890 Other specified postprocedural states; W01.0XXA Fall on same level from slipping, tripping and stumbling without subsequent striking against object, initial encounter; Y93.9 Activity, unspecified; Y92.9 Unspecified place or not applicable; I10 Essential (primary) hypertension; E78.5 Hyperlipidemia, unspecified; I34.1 Nonrheumatic mitral (valve) prolapse; I34.0 Nonrheumatic mitral (valve) insufficiency; I36.1 Nonrheumatic tricuspid (valve) insufficiency; I49.1 Atrial premature depolarization; I49.3 Ventricular premature depolarization; Z79.899 Other long term (current) drug therapy
CPT/HCPCS: 12011; 70450; 73130; 73564; 99284

== ENCOUNTER 2019-07-07 11:00 | Outpatient (RCR) | payer MEDICARE, SELFPAY ==
[2019-04-22 13:25] VITALS: BMI 20.5
--- NOTE | 2019-05-02 12:02 | HP.OTEVAL ---
Patient's Visit Information ADDIS CARRENO is a 83 year old F, referred to Occupational Therapy by Filipe Chen MD, with a diagnosis of right RF trigger finger. Date of Evaluation: 04/30/19 Occupational Therapist: Jluissa Ash, OTR/Jarod, CHT - Subjective Subjective: This 83 year old female was seen for OT with dx of a right trigger finger , s/p 3 weeks trigger finger release. pt thinks sx was on Apr 11. pts RF was released and shortly after her trigger finger release she started to have difficulty straightening her finger- pt states it appears to continue to catch and limit her ability to open her hand. pt is left handed. Pt states she is limited with ADLS and IADLs at this time. - ADLs Bathing: Handle washcloth & soap, Squeeze shampoo bottle Kitchen: Peel fruits & vegetables, Open jars, Open bottle caps, Pour from pitcher Miscellaneous: Handle money (change), Take things out of wallet - Pain right wrist 2 Pain Intensity Range: 0, 1, 4 - ROM ROM Comments: pt demo light right composite fist- noted ext. tendon displacing toward ulnar side of RF MCP- painful with reposition. - Strength Residential Support Worker: right 15# left 40# - Sensation Sensation Comments: petra - Quick DASH-Disab of Arm,Shoulder& Hand Quick DASH Score: 18.1800 - Rehabilitation General Assessment: pt demo with good ROM of right hand but demo with ext. tendon of RF rolling out of place ulnar of MCP. This limits pts functional ind with ADLS and IADls. pt is seeing Dr newby at the [facility] [place] 05/01/19. PT demo need for skilled OT services to provide protective orthosis to prevent ext. tendon from displacing, ed. 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 Pt agree to POC. Rehabilitation Potential: Good - Anticipated Interventions Anticipated Interventions: A/AAROM/PROM, Strengthening, Scar Care, Desensitization, Modalities, Orthoses, Joint Protection/Energy Conservation - Visit Plan Frequency: 1-2x /Week Duration: 3 Weeks General Plan: pt ed. on scar mtg. use of orthosis to prevent extensor tendon from sliding of MPJ. pt ed on digit ext ex. TEXT: Thank you for the opportunity to evaluate your patient. For Medicare and Medicare HMO plans, please review the plan of care and approve it. It will need to be FAXED BACK to us at [phone] for Medicare purposes. Please let me know if there are questions or concerns regarding this plan of care. Physician Signature: Date:
--- NOTE | 2019-05-07 18:22 | HP.OT.NRP ---
HP - Discharge Summary - Patient Information ADDIS CARRENO was seen in my office for initial evaluation on 04/30/19. The following Plan of Care was established for this patient: Initial Frequency: 1-2x /Week Initial Duration: 3 Weeks - Anticipated Interventions Anticipated Interventions: A/AAROM/PROM, Strengthening, Scar Care, Desensitization, Modalities, Orthoses, Joint Protection/Energy Conservation This patient was last seen in our office 04/30/19. Pertinent comments regarding their Occupational therapy will appear below: Therapist completed Eval only- pt to have repair sx 2018. pt d/c at this time due to pending sx- pt to follow scar mtg and ROM HEP until sx. At this point I will be discontinuing this patient from occupational therapy. I would be happy to see this patient again in the future if found appropriate by the physician. Thank you! Julissa Ash, OTR/L, CHT
--- NOTE | 2019-10-22 07:15 | HP.OT.NRP ---
ADDIS CARRENO was seen in my office for initial evaluation on 04/30/19. The following Plan of Care was established for this patient: Initial Frequency: 1-2x /Week Initial Duration: 3 Weeks Plan: cont use of splint at night and during the day when not doing ex. Anticipated Interventions: A/AAROM/PROM, Strengthening, Scar Care, Desensitization, Modalities, Orthoses, Joint Protection/Energy Conservation This patient was last seen in our office 04/30/19. Pertinent comments regarding their Occupational therapy will appear below: Therapist completed Eval only- pt to have repair sx 2018. pt d/c at this time due to pending sx- pt to follow scar mtg and ROM HEP until sx. At this point I will be discontinuing this patient from occupational therapy. I would be happy to see this patient again in the future if found appropriate by the physician. Thank you! Julissa Ash, OTR/L, CHT
--- NOTE | 2019-10-22 07:16 | HP.OTDCSUM ---
It has been my pleasure to treat ADDIS CARRENO under orders from Filipe Chen MD, for the diagnosis of right RF trigger finger for a total of 5 visit(s). Please see the following information for a summary of their discharge status. Objective/Function: PIP ROM is looking good. MCP ext looks good -5. flex at 60. not noted sagittal band pull Patient Goals: Decrease Pain, Use Hand/Wrist/Arm Normally Again Plan: cont use of splint at night and during the day when not doing ex. If there are questions or concerns regarding this patient's occupational therapy, please fell free to call me at [phone]. Thank you for the referral of this patient. Sincerely, Julissa Ash, OTR/L, CHT
--- NOTE | 2019-10-25 09:07 | HP.OT.NRP ---
ADDIS CARRENO was seen in my office for initial evaluation on 04/30/19. The following Plan of Care was established for this patient: Initial Frequency: 1-2x /Week Initial Duration: 3 Weeks Plan: cont use of splint at night and during the day when not doing ex. Anticipated Interventions: A/AAROM/PROM, Strengthening, Scar Care, Desensitization, Modalities, Orthoses, Joint Protection/Energy Conservation This patient was last seen in our office 07/07/19. Pertinent comments regarding their Occupational therapy will appear below: pt last seen on 2019 pt was 6 weeks out of sagittal band repair- with orthosis on with review of sagittal band repair at noted splint can be removed for light active use during the day -pt also suffered fall resulting with mallet finger- therapist adj orthosis for central slip injury- pt has not scheduled further apts and due to time lapse in services pt d/c at this time. [ End ] At this point I will be discontinuing this patient from occupational therapy. I would be happy to see this patient again in the future if found appropriate by the physician. Thank you! Julissa Ash, OTR/L, CHT
== END 2019-07-07 19:00 | disposition home or self-care (01) ==
LOC: OT 11:00
PROVIDERS: Family Provider Family Medicine Geriatric Medicine; PCP Family Medicine Geriatric Medicine; Visit Provider Specialist
DX: M65.341 Trigger finger, right ring finger (principal)
CPT/HCPCS: 97140; 97166; 97530; 97760

== ENCOUNTER → 2019-11-06 15:09 | Outpatient (CLI) | payer MEDICARE, SELFPAY ==
[2019-07-02 10:05] VITALS: BMI 20.2
[2019-11-06 16:57] LABS: Absolute Lymphocyte Count 6.14 X10^3/uL (0.83-4.51); Absolute Neutrophil Count 5.2 X10^3/uL (2.0-7.7); Basophil# 0.28 X10^3/uL; Basophil% 2.1 % (0-1); Eosinophil# 0.22 X10^3/uL; Eosinophils% 1.7 % (0-5); Hematocrit 39.6 % (37-47); Hemoglobin 12.6 g/dL (12.0-15.0); Lymphocyte # 6.14 X10^3/ul (4.0); Lymphocyte % 46.8 % (19-41); Mean Corp Hgb Conc 31.8 g/dL (32-36); Mean Corpuscular Hgb 30.1 pg (27.0-32.0); Mean Corpuscular Volume 94.7 fL (81-99); Mean Platelet Vol. 10.1 fl (6.2-12.0); Monocyte# 1.19 X10^3/uL; Monocyte% 9.1 % (0-10); NRBC Flagged by Analyzer 0 % (0-5); Neutrophil # 5.24 X10^3/uL (2.7-7.7); POSITIVE DIFFERENTIAL YES; Platelet Count 337 K/mm3 (150-450); RBC Distribution Width CV 13.5 % (11.6-14.6); RBC Distribution Width SD 47.2 fl (35.1-43.9); Red Blood Count 4.18 M/mm3 (4.2-5.4); White Blood Count 13.1 K/mm3 (4.4-11.0)
[2019-11-06 17:00] LABS: Differential Indicated SCAN CRITERIA MET
[2019-11-06 17:20] LABS: Anisocytosis RARE; Macrocytosis RARE; Platelet Estimate ADEQUATE (ADEQ); Platelet Morphology LARGE; Red Cell Morphology N CHROM NORMAL (NORM C&C)
[2019-11-06 17:32] LABS: ALB/GLOB Ratio 0.9 RATIO (0.9-2.4); AST(SGOT) 29 U/L (15-37); Alanine Aminotransfer ALT/SGPT 13 U/L (13-56); Albumin, Serum 3.3 g/dL (3.2-5.0); Alkaline Phosphatase 75 U/L (45-117); Anion Gap 5 (5-15); BUN 20 mg/dL (7-18); BUN/Creat Ratio 18.7 RATIO (10-20); Calcium,Total 9.3 mg/dL (8.5-10.1); Chloride 103 mmol/L (98-107); Creatinine, Serum 1.07 mg/dL (0.55-1.02); EST Glomerular Filtration Rate 52 mL/min (>60); Est Glom Filt Rate - Afr Amer 63 mL/min (>60); Globulin 3.6 g/dL (2.2-4.2); Glucose 96 mg/dL (74-106); Potassium 4.2 mmol/L (3.5-5.1); Protein, Total 6.9 g/dL (6.4-8.2); Sodium Level 139 mmol/L (136-145); Thyroid Stim Hormone (TSH) 2.49 uIU/mL (0.358-3.74)
[2019-11-07 12:18] LABS: Pathologist Review Reviewed
== END ==
PROVIDERS: PCP Family Medicine Geriatric Medicine; Visit Provider Family Medicine Geriatric Medicine
DX: E55.9 Vitamin D deficiency, unspecified (principal); R53.83 Other fatigue
CPT/HCPCS: 36415; 80053; 82306; 84443; 85025

== ENCOUNTER → 2020-02-09 17:01 | Outpatient (CLI) | payer MEDICARE, SELFPAY ==
[2019-11-19 12:59] VITALS: BMI 19.8
--- NOTE | 2020-02-09 17:20 | RAD_ITS ---
HISTORY: Chronic constipation for several months. Some nausea. Comparison imaging is from May 22, 2014. Findings: Sternal wires. Some stool is present within the colon. The volume of stool within the colon is less than that of the previous study. I do not believe the volume of stool within the colon on the current study is severe enough to be considered const patient. No pneumatosis. No free air. Dextroscoliosis. Degenerative disc disease. Facet arthropathy. Hip arthritis. Chronic lung disease. Tortuous thoracic aorta. Pelvic phleboliths. RAD/Abd Inc Decub and/or Erect IMPRESSION: No acute disease perceived at 2321 Reported and signed by: Darryn Arndt MD Electronically Signed: Darryn Arndt MD at 23:20 EDT Tel , Service support ,
== END ==
PROVIDERS: PCP Family Medicine Geriatric Medicine; Referring Provider Family Medicine Geriatric Medicine; Visit Provider Family Medicine Geriatric Medicine
DX: K59.00 Constipation, unspecified (principal)
CPT/HCPCS: 74019

== ENCOUNTER → 2020-05-10 13:39 | Outpatient (CLI) | payer MEDICARE, SELFPAY ==
[2019-11-19 12:59] VITALS: BMI 19.8
[2020-05-10 15:12] LABS: Absolute Lymphocyte Count 9.18 X10^3/uL (0.83-4.51); Absolute Neutrophil Count 5.3 X10^3/uL (2.0-7.7); Basophil# 0.49 X10^3/uL; Basophil% 2.9 % (0-1); Eosinophil# 0.38 X10^3/uL; Eosinophils% 2.3 % (0-5); Hematocrit 38.9 % (37-47); Hemoglobin 12.6 g/dL (12.0-15.0); Lymphocyte # 9.18 X10^3/ul (4.0); Lymphocyte % 54.8 % (19-41); Mean Corp Hgb Conc 32.4 g/dL (32-36); Mean Corpuscular Hgb 30.3 pg (27.0-32.0); Mean Corpuscular Volume 93.5 fL (81-99); Mean Platelet Vol. 9.9 fl (6.2-12.0); Monocyte# 1.34 X10^3/uL; NRBC Flagged by Analyzer 0 % (0-5); Neutrophil # 5.34 X10^3/uL (2.7-7.7); Neutrophil % 31.8 % (47-70); POSITIVE DIFFERENTIAL YES; POSITIVE MORPHOLOGY YES; Platelet Count 351 K/mm3 (150-450); RBC Distribution Width CV 14.1 % (11.6-14.6); RBC Distribution Width SD 48.2 fl (35.1-43.9); Red Blood Count 4.16 M/mm3 (4.2-5.4); White Blood Count 16.8 K/mm3 (4.4-11.0)
[2020-05-10 15:38] LABS: Vitamin D,25 Hydroxy 54.7 ng/mL
[2020-05-10 15:42] LABS: Differential Indicated SCAN CRITERIA MET
[2020-05-10 15:57] LABS: Atypical Lymphocyte 1+ %; Platelet Estimate ADEQUATE (ADEQ); Red Cell Morphology NORM C+C NORMAL (NORM C&C)
[2020-05-10 16:07] LABS: ALB/GLOB Ratio 0.8 RATIO (0.9-2.4); AST(SGOT) 36 U/L (15-37); Alanine Aminotransfer ALT/SGPT 12 U/L (13-56); Albumin, Serum 3.4 g/dL (3.2-5.0); Alkaline Phosphatase 92 U/L (45-117); Anion Gap 4 (5-15); BUN 20 mg/dL (7-18); BUN/Creat Ratio 17.1 RATIO (10-20); Chloride 102 mmol/L (98-107); Creatinine, Serum 1.17 mg/dL (0.55-1.02); EST Glomerular Filtration Rate 47 mL/min (>60); Est Glom Filt Rate - Afr Amer 57 mL/min (>60); Glucose 92 mg/dL (74-106); Potassium 4.3 mmol/L (3.5-5.1); Protein, Total 7.4 g/dL (6.4-8.2); Sodium Level 135 mmol/L (136-145); Thyroid Stim Hormone (TSH) 2.89 uIU/mL (0.358-3.74)
== END ==
PROVIDERS: PCP Family Medicine Geriatric Medicine; Visit Provider Family Medicine Geriatric Medicine
DX: E55.9 Vitamin D deficiency, unspecified (principal); R53.83 Other fatigue
CPT/HCPCS: 36415; 80053; 82306; 84443; 85025

== ENCOUNTER 2020-07-16 13:32 | Outpatient (RCR) | payer MEDICARE, SELFPAY ==
[2019-11-19 12:59] VITALS: BMI 19.8
== END 2020-07-16 23:59 ==
LOC: IMMUN 13:32
PROVIDERS: PCP Family Medicine Geriatric Medicine; Visit Provider Family Medicine
DX: Z23 Encounter for immunization (principal)
CPT/HCPCS: 0011A; 0012A; 91301

== ENCOUNTER → 2020-11-08 15:58 | Outpatient (CLI) | payer MEDICARE, SELFPAY ==
[2019-11-19 12:59] VITALS: BMI 19.8
[2020-11-08 17:24] LABS: Absolute Lymphocyte Count 7.13 X10^3/uL (0.83-4.51); Absolute Neutrophil Count 4.4 X10^3/uL (2.0-7.7); Basophil% 2.9 % (0-1); Eosinophil# 0.39 X10^3/uL; Eosinophils% 2.8 % (0-5); Hematocrit 36.7 % (37-47); Hemoglobin 11.8 g/dL (12.0-15.0); Lymphocyte # 7.13 X10^3/ul (0.83-4.51); Mean Corp Hgb Conc 32.2 g/dL (32-36); Mean Corpuscular Hgb 29.7 pg (27.0-32.0); Mean Corpuscular Volume 92.4 fL (81-99); Mean Platelet Vol. 10.2 fl (6.2-12.0); Monocyte# 1.37 X10^3/uL; NRBC Flagged by Analyzer 0 % (0-5); Neutrophil # 4.39 X10^3/uL (2.7-7.7); Neutrophil % 32.1 % (47-70); POSITIVE DIFFERENTIAL YES; POSITIVE MORPHOLOGY YES; Platelet Count 329 K/mm3 (150-450); RBC Distribution Width CV 13.5 % (11.6-14.6); RBC Distribution Width SD 45.8 fl (35.1-43.9); Red Blood Count 3.97 M/mm3 (4.2-5.4); White Blood Count 13.7 K/mm3 (4.4-11.0)
[2020-11-08 17:30] LABS: Differential Indicated SCAN CRITERIA MET
[2020-11-08 17:53] LABS: ALB/GLOB Ratio 0.9 RATIO (0.9-2.4); AST(SGOT) 31 U/L (15-37); Alanine Aminotransfer ALT/SGPT 15 U/L (13-56); Albumin, Serum 3.3 g/dL (3.2-5.0); Alkaline Phosphatase 96 U/L (45-117); Anion Gap 5 (5-15); BUN 24 mg/dL (7-18); BUN/Creat Ratio 18.5 RATIO (10-20); Calcium,Total 8.6 mg/dL (8.5-10.1); Chloride 103 mmol/L (98-107); EST Glomerular Filtration Rate 41 mL/min (>60); Est Glom Filt Rate - Afr Amer 50 mL/min (>60); Globulin 3.6 g/dL (2.2-4.2); Glucose 95 mg/dL (74-106); Potassium 4.2 mmol/L (3.5-5.1); Protein, Total 6.9 g/dL (6.4-8.2); Sodium Level 136 mmol/L (136-145); Thyroid Stim Hormone (TSH) 1.59 uIU/mL (0.358-3.74)
[2020-11-08 19:01] LABS: Platelet Estimate ADEQUATE (ADEQ)
[2020-11-08 19:02] LABS: Red Cell Morphology NORM C+C NORMAL (NORM C&C)
[2020-11-11 12:49] LABS: Vitamin D,25 Hydroxy 54.2 ng/mL
== END ==
PROVIDERS: PCP Family Medicine Geriatric Medicine; Visit Provider Family Medicine Geriatric Medicine
DX: E55.9 Vitamin D deficiency, unspecified (principal); R53.83 Other fatigue
CPT/HCPCS: 36415; 80053; 82306; 84443; 85025

== ENCOUNTER → 2020-12-07 13:46 | Outpatient (CLI) | payer MEDICARE, SELFPAY ==
[2020-11-22 13:01] VITALS: BMI 19.3
--- NOTE | 2020-12-07 14:06 | ECHOD_ITS ---
Reason For Study: MVP Procedure This was a 2D Doppler, Color Flow transthoracic echocardiogram. The exam was of adequate technical quality. Exam performed in department. Left Ventricle Normal LV size. Left ventricular systolic function is normal. The estimated ejection fraction is 55 %. Diastolic function is indeterminate. No regional wall motion abnormalities noted. Right Ventricle Normal RV size. Normal systolic function. Atria The left atrium is moderately enlarged. The right atrium is moderately enlarged. No doppler evidence for ASD. Mitral Valve There is no mitral annular calcification. Mild diffuse mitral valve thickening. Mild mitral valve prolapse, posterior leaflet. Mild (1+) mitral valve insufficiency. Tricuspid Valve Normal tricuspid valve. Mild to moderate (1-2+) tricuspid valve insufficiency. Right ventricular systolic pressure estimated to be 27 mmHg. Aortic Valve Trisinus/trileaflet aortic valve. Mild diffuse aortic valve thickening. Trivial aortic valve insufficiency. Pulmonic Valve The pulmonic valve is not well visualized. Trivial pulmonic valve insufficiency. Great Vessels Normal sized aortic root. Pericardium/Pleural No pericardial effusion. MMode/2D Measurements & Calculations LVIDd: 4.4 cm IVSd: 0.77 cm Ao root diam: 3.2 cm LVIDs: 3.1 cm LVPWd: 0.79 cm RVDd: 2.9 cm FS: 28.4 % LVAd ap4: 18.2 cm2 LVAd ap2: 21.3 cm2 SV(MOD-sp4): 25.1 ml LVLd ap4: 5.6 cm LVLd ap2: 6.6 cm EDV(MOD-sp4): 48.9 ml EDV(MOD-sp2): 61.1 ml EDV(sp4-el): 49.8 ml EDV(sp2-el): 58.5 ml LVAs ap4: 11.6 cm2 LVAs ap2: 12.6 cm2 LVLs ap4: 4.8 cm LVLs ap2: 5.7 cm ESV(MOD-sp4): 23.8 ml ESV(MOD-sp2): 25.4 ml ESV(sp4-el): 23.6 ml ESV(sp2-el): 23.7 ml EF(MOD-sp4): 51.3 % EF(MOD-sp2): 58.4 % EF(sp4-el): 52.6 % SV(MOD-sp2): 35.7 ml SV(sp4-el): 26.2 ml LA A4 area: 17.3 cm2 LA dimension(2D): 3.5 cm RA A4 area: 16.8 cm2 Doppler Measurements & Calculations MV E max alex: 52.5 cm/sec Lat Peak E' Alex: 9.1 cm/sec Med Peak E' Alex: 6.8 cm/sec MV A max alex: 64.1 cm/sec E/E' lat: 5.8 E/E' med: 7.7 MV E/A: 0.82 Ao V2 max: 114.4 cm/sec AI max alex: 398.7 cm/sec LV V1 max: 77.0 cm/sec Ao max P.6 mmHg AI max P.8 mmHg LV V1 max P.4 mmHg AI dec slope: 187.1 cm/sec2 AI P1/2t: 624.0 msec PA V2 max: 86.9 cm/sec PI end-d alex: 76.7 cm/sec TR max alex: 245.8 cm/sec TR max P.2 mmHg ECHO/Echo Complete Interpretation Summary Left ventricular systolic function is normal. The estimated ejection fraction is 55 %. The left atrium is moderately enlarged. The right atrium is moderately enlarged. Mild diffuse mitral valve thickening. Mild mitral valve prolapse, posterior leaflet Mild (1+) mitral valve insufficiency. Mild to moderate (1-2+) tricuspid valve insufficiency. Mild diffuse aortic valve thickening. Trivial aortic valve insufficiency. Trivial pulmonic valve insufficiency. Right ventricular systolic pressure estimated to be 27 mmHg. Diastolic function is indeterminate. Ordering Physician: Bart Olivarez Referring Physician: CHRIS KOTHARI Performed By: Chanelle Garza, RDCS, RVT
== END ==
PROVIDERS: PCP Family Medicine Geriatric Medicine; Referring Provider Internal Medicine Cardiovascular Disease; Visit Provider Internal Medicine Cardiovascular Disease
DX: I34.1 Nonrheumatic mitral (valve) prolapse (principal); I34.0 Nonrheumatic mitral (valve) insufficiency; I36.1 Nonrheumatic tricuspid (valve) insufficiency; Z86.018 Personal history of other benign neoplasm
CPT/HCPCS: 93306

== ENCOUNTER → 2020-12-15 13:23 | Outpatient (CLI) | payer MEDICARE, SELFPAY ==
[2020-11-22 13:01] VITALS: BMI 19.3
[2020-12-15 15:06] LABS: Absolute Lymphocyte Count 6.61 X10^3/uL (0.83-4.51); Absolute Neutrophil Count 4.1 X10^3/uL (2.0-7.7); Basophil# 0.34 X10^3/uL; Basophil% 2.8 % (0-1); Eosinophil# 0.15 X10^3/uL; Eosinophils% 1.2 % (0-5); Hematocrit 41.3 % (37-47); Hemoglobin 13.1 g/dL (12.0-15.0); Lymphocyte # 6.61 X10^3/ul (0.83-4.51); Lymphocyte % 54.2 % (19-41); Mean Corp Hgb Conc 31.7 g/dL (32-36); Mean Corpuscular Hgb 29.2 pg (27.0-32.0); Mean Corpuscular Volume 92.2 fL (81-99); Mean Platelet Vol. 9.8 fl (6.2-12.0); Monocyte% 8.2 % (0-10); NRBC Flagged by Analyzer 0 % (0-5); Neutrophil # 4.07 X10^3/uL (2.7-7.7); Neutrophil % 33.4 % (47-70); POSITIVE DIFFERENTIAL YES; POSITIVE MORPHOLOGY YES; Platelet Count 356 K/mm3 (150-450); RBC Distribution Width CV 13.6 % (11.6-14.6); RBC Distribution Width SD 46.4 fl (35.1-43.9); Red Blood Count 4.48 M/mm3 (4.2-5.4); White Blood Count 12.2 K/mm3 (4.4-11.0)
[2020-12-15 15:20] LABS: Differential Indicated SCAN CRITERIA MET
[2020-12-15 15:26] LABS: ALB/GLOB Ratio 0.9 RATIO (0.9-2.4); AST(SGOT) 30 U/L (15-37); Alanine Aminotransfer ALT/SGPT 20 U/L (13-56); Albumin, Serum 3.7 g/dL (3.2-5.0); Alkaline Phosphatase 94 U/L (45-117); Anion Gap 5 (5-15); BUN 19 mg/dL (7-18); BUN/Creat Ratio 16.8 RATIO (10-20); Calcium,Total 9.1 mg/dL (8.5-10.1); Chloride 100 mmol/L (98-107); Creatinine, Serum 1.13 mg/dL (0.55-1.02); EST Glomerular Filtration Rate 49 mL/min (>60); Est Glom Filt Rate - Afr Amer 59 mL/min (>60); Globulin 3.9 g/dL (2.2-4.2); Glucose 93 mg/dL (74-106); Potassium 4.3 mmol/L (3.5-5.1); Protein, Total 7.6 g/dL (6.4-8.2); Sodium Level 134 mmol/L (136-145); Thyroid Stim Hormone (TSH) 2.82 uIU/mL (0.358-3.74)
[2020-12-15 15:48] LABS: Platelet Estimate ADEQUATE (ADEQ); Red Cell Morphology NORM C+C NORMAL (NORM C&C); Stomatocyte 1+
== END ==
PROVIDERS: PCP Family Medicine Geriatric Medicine; Visit Provider Family Medicine Geriatric Medicine
DX: R53.83 Other fatigue (principal)
CPT/HCPCS: 36415; 80053; 84443; 85025

== ENCOUNTER → 2021-04-26 11:04 | Outpatient (CLI) | payer MEDICARE, SELFPAY | PROVIDERS: PCP Family Medicine Geriatric Medicine; Visit Provider Ophthalmology | DX: H04.123 Dry eye syndrome of bilateral lacrimal glands (principal) | CPT/HCPCS: 36415 ==

== ENCOUNTER → 2021-05-17 14:19 | Outpatient (CLI) | payer MEDICARE, SELFPAY ==
[2021-05-17 15:30] LABS: Absolute Neutrophil Count 5.7 X10^3/uL (2.0-7.7); Basophil# 0.42 X10^3/uL; Basophil% 2.7 % (0-1); Eosinophil# 0.46 X10^3/uL; Hemoglobin 11.8 g/dL (12.0-15.0); Mean Corp Hgb Conc 32.8 g/dL (32-36); Mean Corpuscular Hgb 30.6 pg (27.0-32.0); Mean Corpuscular Volume 93.3 fL (81-99); Monocyte# 1.33 X10^3/uL; Monocyte% 8.6 % (0-10); NRBC Flagged by Analyzer 0 % (0-5); Neutrophil # 5.66 X10^3/uL (2.7-7.7); Neutrophil % 36.4 % (47-70); POSITIVE DIFFERENTIAL YES; Platelet Count 326 K/mm3 (150-450); RBC Distribution Width CV 13.7 % (11.6-14.6); RBC Distribution Width SD 46.5 fl (35.1-43.9); Red Blood Count 3.86 M/mm3 (4.2-5.4); White Blood Count 15.5 K/mm3 (4.4-11.0)
[2021-05-17 15:34] LABS: Differential Indicated SCAN CRITERIA MET
[2021-05-17 16:02] LABS: Differential Comment SCANNED
[2021-05-17 16:07] LABS: Vitamin D,25 Hydroxy 55.8 ng/mL
[2021-05-17 16:34] LABS: ALB/GLOB Ratio 0.9 RATIO (0.9-2.4); AST(SGOT) 31 U/L (15-37); Alanine Aminotransfer ALT/SGPT 10 U/L (13-56); Albumin, Serum 3.4 g/dL (3.2-5.0); Alkaline Phosphatase 126 U/L (45-117); Anion Gap 6 (5-15); BUN 21 mg/dL (7-18); BUN/Creat Ratio 19.1 RATIO (10-20); Chloride 103 mmol/L (98-107); EST Glomerular Filtration Rate 50 mL/min (>60); Est Glom Filt Rate - Afr Amer 61 mL/min (>60); Globulin 3.8 g/dL (2.2-4.2); Glucose 92 mg/dL (74-106); Potassium 4.1 mmol/L (3.5-5.1); Protein, Total 7.2 g/dL (6.4-8.2); Sodium Level 138 mmol/L (136-145); Thyroid Stim Hormone (TSH) 2.57 uIU/mL (0.358-3.74)
== END ==
PROVIDERS: PCP Family Medicine Geriatric Medicine; Referring Provider Family Medicine Geriatric Medicine; Visit Provider Family Medicine Geriatric Medicine
DX: R53.83 Other fatigue (principal); E55.9 Vitamin D deficiency, unspecified
CPT/HCPCS: 36415; 80053; 82306; 84443; 85025

== ENCOUNTER → 2021-11-21 | Outpatient (CLI) | payer MEDICARE, SELFPAY ==
[2021-11-21 17:40] LABS: Absolute Lymphocyte Count 10.68 X10^3/uL (0.83-4.51); Absolute Neutrophil Count 5.6 X10^3/uL (2.0-7.7); Basophil# 0.51 X10^3/uL; Basophil% 2.7 % (0-1); Eosinophil# 0.49 X10^3/uL; Eosinophils% 2.6 % (0-5); Hematocrit 37.3 % (37-47); Lymphocyte # 10.68 X10^3/ul (0.83-4.51); Lymphocyte % 56.3 % (19-41); Mean Corp Hgb Conc 32.2 g/dL (32-36); Mean Corpuscular Hgb 29.8 pg (27.0-32.0); Mean Corpuscular Volume 92.6 fL (81-99); Mean Platelet Vol. 10.7 fl (6.2-12.0); Monocyte# 1.62 X10^3/uL; Monocyte% 8.5 % (0-10); NRBC Flagged by Analyzer 0 % (0-5); Neutrophil # 5.61 X10^3/uL (2.7-7.7); Neutrophil % 29.6 % (47-70); POSITIVE DIFFERENTIAL YES; POSITIVE MORPHOLOGY YES; Platelet Count 267 K/mm3 (150-450); RBC Distribution Width CV 13.7 % (11.6-14.6); RBC Distribution Width SD 46.7 fl (35.1-43.9); Red Blood Count 4.03 M/mm3 (4.2-5.4)
[2021-11-21 17:50] LABS: Differential Indicated SCAN CRITERIA MET
[2021-11-21 18:10] LABS: Differential Comment SEE COMMENTS
[2021-11-21 18:11] LABS: Anisocytosis RARE; Atypical Lymphocyte 1+ %; Macrocytosis RARE; Platelet Estimate ADEQUATE (ADEQ); Red Cell Morphology N CHROM NORMAL (NORM C&C)
[2021-11-21 18:44] LABS: AST(SGOT) 34 U/L (15-37); Alanine Aminotransfer ALT/SGPT 10 U/L (13-56); Albumin, Serum 3.5 g/dL (3.2-5.0); Alkaline Phosphatase 136 U/L (45-117); Anion Gap 4 (5-15); BUN 26 mg/dL (7-18); BUN/Creat Ratio 21.5 RATIO (10-20); Calcium,Total 8.8 mg/dL (8.5-10.1); Chloride 104 mmol/L (98-107); Creatinine, Serum 1.21 mg/dL (0.55-1.02); EST Glomerular Filtration Rate 45 mL/min (>60); Est Glom Filt Rate - Afr Amer 54 mL/min (>60); Globulin 3.6 g/dL (2.2-4.2); Glucose 97 mg/dL (74-106); Potassium 4.1 mmol/L (3.5-5.1); Protein, Total 7.1 g/dL (6.4-8.2); Sodium Level 136 mmol/L (136-145); Thyroid Stim Hormone (TSH) 1.52 uIU/mL (0.358-3.74)
[2021-11-22 08:45] LABS: Vitamin D,25 Hydroxy 62.6 ng/mL
[2021-11-22 13:13] LABS: Pathologist Review Reviewed
== END | disposition home or self-care (01) ==
LOC: LAB 16:39
PROVIDERS: PCP Family Medicine Geriatric Medicine; Referring Provider Family Medicine Geriatric Medicine; Visit Provider Family Medicine Geriatric Medicine
DX: R53.83 Other fatigue (principal); E55.9 Vitamin D deficiency, unspecified
CPT/HCPCS: 36415; 80053; 82306; 84443; 85025

== ENCOUNTER → 2021-12-22 | Outpatient (CLI) | payer MEDICARE, SELFPAY | END | disposition home or self-care (01) | LOC: LAB 10:38 | PROVIDERS: PCP Family Medicine Geriatric Medicine; Referring Provider Ophthalmology; Visit Provider Ophthalmology | DX: H04.123 Dry eye syndrome of bilateral lacrimal glands (principal) | CPT/HCPCS: 36415 ==

== ENCOUNTER → 2022-03-06 | Outpatient (CLI) | payer MEDICARE, SELFPAY ==
--- NOTE | 2022-03-06 13:44 | RAD_ITS ---
INDICATION: PAIN EXAMINATION/TECHNIQUE: X-RAY - LEFT XR Hip Unilateral with Pelvis when performed; 2-3 Views 3 VIEWS COMPARISON: None. FINDINGS: SOFT TISSUES: No soft tissue swelling or gas. No radiopaque foreign body. Vascular calcifications are seen. Scattered calcifications visualized superimposed over the pelvis. BONES/JOINTS: No acute fracture or subluxation.. Normal alignment. Preservation of the joint space.. No sclerotic or destructive changes observed. RAD/HIP, UNI W/ Pelvis 2-3 Views IMPRESSION: Degenerative changes, no evidence of acute osseous abnormality is seen. Electronically Signed: Jordan Crawford MD at 15:12 EDT ,
--- NOTE | 2022-03-06 13:45 | RAD_ITS ---
INDICATION: NAUSEA EXAMINATION/TECHNIQUE: X-RAY - XR Abdomen 1 View COMPARISON: None FINDINGS: BOWEL GAS PATTERN: Non-obstructive. No bowel or stomach distention. Scattered stool visualized in the large bowel. FREE AIR: Not assessed on a single supine view. ORGANOMEGALY: Not seen. CALCIFICATIONS: Calcifications visualized superimposed over bilateral renal beds. LOWER CHEST: No acute pathology. BONES AND SOFT TISSUES: No acute pathology. Degenerative bone changes. RAD/Abdomen Single View IMPRESSION: Scattered stool visualized in the large bowel. Calcifications visualized superimposed over bilateral renal beds. Electronically Signed: Jordan Crawford MD at 15:11 EDT ,
[2022-03-06 15:43] LABS: Absolute Lymphocyte Count 8.34 X10^3/uL (0.83-4.51); Absolute Neutrophil Count 7.4 X10^3/uL (2.0-7.7); Basophil% 2.3 % (0-1); Eosinophil# 0.19 X10^3/uL; Eosinophils% 1.1 % (0-5); Hematocrit 39.3 % (37-47); Hemoglobin 12.7 g/dL (12.0-15.0); Lymphocyte # 8.34 X10^3/ul (0.83-4.51); Mean Corp Hgb Conc 32.3 g/dL (32-36); Mean Corpuscular Hgb 30.6 pg (27.0-32.0); Mean Corpuscular Volume 94.7 fL (81-99); Mean Platelet Vol. 10.3 fl (6.2-12.0); Monocyte# 1.06 X10^3/uL; Monocyte% 6.1 % (0-10); NRBC Flagged by Analyzer 0 % (0-5); Neutrophil # 7.35 X10^3/uL (2.7-7.7); Neutrophil % 42.2 % (47-70); POSITIVE DIFFERENTIAL YES; POSITIVE MORPHOLOGY YES; Platelet Count 338 K/mm3 (150-450); RBC Distribution Width CV 13.6 % (11.6-14.6); RBC Distribution Width SD 47.7 fl (35.1-43.9); Red Blood Count 4.15 M/mm3 (4.2-5.4); White Blood Count 17.4 K/mm3 (4.4-11.0)
[2022-03-06 15:45] LABS: Differential Indicated SCAN CRITERIA MET
[2022-03-06 15:56] LABS: AST(SGOT) 31 U/L (15-37); Alanine Aminotransfer ALT/SGPT 11 U/L (13-56); Albumin, Serum 3.6 g/dL (3.2-5.0); Alkaline Phosphatase 86 U/L (45-117); Anion Gap 6 (5-15); BUN 20 mg/dL (7-18); BUN/Creat Ratio 16.1 RATIO (10-20); Calcium,Total 9.7 mg/dL (8.5-10.1); Chloride 103 mmol/L (98-107); Creatinine, Serum 1.24 mg/dL (0.55-1.02); EST Glomerular Filtration Rate 44 mL/min (>60); Est Glom Filt Rate - Afr Amer 53 mL/min (>60); Globulin 3.7 g/dL (2.2-4.2); Glucose 105 mg/dL (74-106); Potassium 4.3 mmol/L (3.5-5.1); Protein, Total 7.3 g/dL (6.4-8.2); Sodium Level 140 mmol/L (136-145)
[2022-03-06 16:23] LABS: Atypical Lymphocyte 1+ %
[2022-03-06 16:24] LABS: Platelet Estimate ADEQUATE (ADEQ); Red Cell Morphology NORM C+C NORMAL (NORM C&C)
== END | disposition home or self-care (01) ==
PROVIDERS: PCP Family Medicine Geriatric Medicine; Visit Provider Family Medicine Geriatric Medicine
DX: M25.552 Pain in left hip (principal); R11.0 Nausea
CPT/HCPCS: 36415; 73502; 74018; 80053; 85025

== ENCOUNTER → 2022-03-07 | Outpatient (CLI) | payer MEDICARE, SELFPAY | END | disposition home or self-care (01) | PROVIDERS: PCP Family Medicine Geriatric Medicine; Referring Provider Family Medicine Geriatric Medicine; Visit Provider Family Medicine Geriatric Medicine | DX: R68.83 Chills (without fever) (principal) | CPT/HCPCS: 87635; 87804; 87807; C9803; U0003; U0005 ==

== ENCOUNTER → 2022-04-06 | Outpatient (CLI) | payer MEDICARE, SELFPAY ==
--- NOTE | 2022-04-06 17:38 | RAD_ITS ---
STUDY: X-RAY CHEST REASON FOR EXAM: Female, 86 years old. Shortness of breath and cough TECHNIQUE: PA and lateral views of the chest. COMPARISON: 10/22/2017 FINDINGS: Lungs are mildly hyperexpanded with persistent interstitial fibrotic changes noted clinically in the right lung. Since the previous study, there is been development of opacification in the right lower lung field suggesting infiltrate with associated effusion. Follow-up recommended to assure resolution Sternal cerclage wires and vascular clips are present from a prior sternotomy and coronary artery bypass graft procedure (CABG). Normal mediastinum and bar. Normal visualized pulmonary arteries. Normal visualized aortic arch and descending thoracic aorta. There are diffuse degenerative changes of the visualized thoracic spine. Normal visualized ribs, clavicles, and shoulders. There is no demonstrated abnormality of the visualized soft tissue structures of the upper abdomen. RAD/Chest PA and Lateral IMPRESSION: Underlying emphysema with chronic interstitial changes and superimposed right lower lobe pneumonia with pleural effusion. Follow-up recommended to assure resolution Electronically Signed: Jayden Mccormack MD at 9:13 EDT ,
== END | disposition home or self-care (01) ==
PROVIDERS: PCP Family Medicine Geriatric Medicine; Visit Provider Family Medicine Geriatric Medicine
DX: R06.02 Shortness of breath (principal)
CPT/HCPCS: 71046

== ENCOUNTER → 2022-04-07 | Outpatient (CLI) | payer MEDICARE, SELFPAY | END | disposition home or self-care (01) | LOC: PSN 12:21 | PROVIDERS: PCP Family Medicine Geriatric Medicine; Referring Provider Family Medicine Geriatric Medicine; Visit Provider Family Medicine Geriatric Medicine | DX: R68.83 Chills (without fever) (principal); Z20.822 Contact with and (suspected) exposure to COVID-19 | CPT/HCPCS: 87635; 87804; 87807; C9803; U0003; U0005 ==

== ENCOUNTER → 2022-04-10 | Outpatient (CLI) | payer MEDICARE, SELFPAY ==
--- NOTE | 2022-04-10 16:20 | RAD_ITS ---
STUDY: X-RAY CHEST REASON FOR EXAM: Female, 86 years old. PNEUMONIA TECHNIQUE: XR Chest 2 Views COMPARISON: 04.06.22 FINDINGS: There is atherosclerotic calcification of the aortic arch with tortuosity. There are diffuse degenerative changes of the visualized thoracic spine. There is degenerative osteoarthritis of the bilateral shoulders. There is no demonstrated pleural abnormality. There are multiple median sternotomy wires. Normal size heart. Normal mediastinum and bar. Normal visualized pulmonary arteries. There is no demonstrated abnormality of the visualized soft tissue structures of the upper abdomen. RAD/Chest PA and Lateral IMPRESSION: There are no acute findings. Electronically Signed: Melvin Diamond MD at 16:39 EDT ,
== END | disposition home or self-care (01) ==
LOC: RAD 16:18
PROVIDERS: PCP Family Medicine Geriatric Medicine; Referring Provider Family Medicine Geriatric Medicine; Visit Provider Family Medicine Geriatric Medicine
DX: J18.9 Pneumonia, unspecified organism (principal)
CPT/HCPCS: 71046

== ENCOUNTER 2022-04-14 12:23 | Emergency (ER) | payer MEDICARE, SELFPAY ==
[2022-04-14 12:25] VITALS: BP 149/103; PULSE 94; RESP 18; TEMP 35.7; O2SAT 98; BMI 19.0
--- NOTE | 2022-04-14 12:45 | ED.VIS.FALL ---
HPI HPI - Fall History of Present Illness Chief Complaint: Fall Informant: patient Occured/Mechanism Occurred: Today Mechanism/Context: Yes same level fall Pain/Injury Location: Sacrum Quality of Pain: Dull Worsened by: Nothing Relieved by: Nothing Associated Symptoms Associated Symptoms: Negative for Parasthesias, Weakness, Loss of function, Inability to ambulate or Loss of consciousness Narrative Narrative: Patient presents after a fall that occurred this morning. Patient states she was walking in her kitchen when she fell. Patient states she lost her balance. Patient has a history of Parkinson's disease. Patient complains of pain over her tailbone. Patient describes it as dull. Patient denies any head injury or loss of consciousness. Patient denies any paresthesias or weakness. Patient states nothing makes her pain better nothing makes it worse. Patient denies any other injuries. [facility] Medical History Acute bronchitis, unspecified Acute sinusitis, unspecified Contact with and (suspected) exposure to other viral communicable diseases Essential hypertension History of atrial myxoma Hyperlipidemia Hypertension Lymphoma Nonrheumatic mitral (valve) prolapse Nonrheumatic mitral valve regurgitation Nonrheumatic tricuspid valve regurgitation Parkinsons disease Parotid tumor Premature atrial contractions Premature ventricular contraction Home Medications ascorbic acid (vitamin C) 500 mg capsule 1,000 mg PO QDAY 12/31/17 [History Last Taken Unknown] multivitamin 1 tab PO DAILY 11/20/18 [History Last Taken Unknown] mirtazapine 15 mg tablet 7.5 mg PO QHS 06/17/19 [History Last Taken Unknown] metoprolol tartrate 25 mg tablet 12.5 mg PO BID #90 tabs 09/19/21 [Rx Last Taken Unknown] carbidopa 25 mg-levodopa 100 mg tablet 1.5 tab PO TID 11/23/21 [History Last Taken Unknown] psyllium husk 3.4 gram/5.4 gram oral powder (Metamucil) 1 tsp PO DAILY 11/23/21 [History Last Taken Unknown] hydrocodone-acetaminophen 5-325mg 5mg-325mg 1 tab PO Q6H PRN PRN Pain 3 days #10 TABLETS 04/14/22 [Rx Last Taken Unknown] Allergy/AdvReac Type Severity Reaction Status Date / Time Penicillins Allergy Rash Verified 12/02/21 14:11 tramadol AdvReac Other Verified 04/14/22 12:24 Surgical History History of laparoscopic cholecystectomy History of splenectomy Social History Smoking Status: Never smoker alcohol intake: current details: occasional substance use type: does not use ROS ROS ED Constitutional Constitutional ED: Denies chills or fever(s) Eyes Eyes: Denies blurry vision or change in vision ENT ENT ED: Denies rhinorrhea or sore throat Cardiovascular Cardiovascular: Denies chest pain or palpitations Respiratory/Chest Respiratory/Chest: Reports cough; Denies dyspnea Gastrointestinal Gastrointestinal: Denies nausea or vomiting Genitourinary Genitourinary ED: Denies dysuria or hematuria Musculoskeletal Musculoskeletal: Reports back pain; Denies neck pain Integumentary Denies abscess or rash Neurologic Neurologic: Denies headache(s) or weakness Allergic/Immunologic Allergic/Immunologic ED: Denies mouth swelling or urticaria EXAM Physical Exam Const Vital Signs: 04/14/22 12:25 04/14/22 13:37 Temperature 96.3 F L Temperature Source Temporal Pulse Rate 94 Respiratory Rate 18 Respiratory Effort Normal Non-Labored Blood Pressure 149/103 H Blood Pressure Mean 118 Pulse Ox 98 Oxygen Delivery Method Room Air Room Air Positive well nourished and well developed General Appearance ED: well developed and NAD HEENT Reports normocephalic atraumatic Chest Wall inspection of chest normal and palpation of chest normal Resp normal respiratory effort and clear to auscultation bilaterally Cardio regular rate and regular rhythm GI non-tender Palpation: soft Back/Spine Back/Spine Narrative: There is mild tenderness over the sacrum. There is no bony crepitance or step-off. There is good range of motion of the lumbar spine. Strength is 5/5 bilaterally in the upper and lower extremities. There are no sensory deficits noted. Straight leg raises were negative bilaterally. Neuro oriented x3, CN's II-XII intact bilaterally, moves all extremities, no focal motor deficits and no sensory deficits noted Sensorium / Orientation: alert Motor Exam: strength 5/5 throughout Psych mental status grossly normal and thought process normal MDM MDM MDM Narrative Medical decision making narrative: X-rays of the sacrum and coccyx were obtained. There are 3 views. On my interpretation, there is no acute fracture. There are some degenerative changes noted. Radiologist also interpreted the x-rays and agrees. Patient was instructed use ice to the area. Patient was instructed to use an inflatable doughnut pillow to sit on. Patient was given a prescription for a short course of [place]. Patient was instructed to follow-up with her primary care physician in 5 to 7 days. Patient understood and was agreeable with the plan. All questions were answered. Radiography Diagnostic Testing: Clinical Impression(s) from Imaging Studies Sacrum and Coccyx X-Ray 04/14/22 12:49 IMPRESSION: Degenerative changes. No fracture is seen. Electronically Signed: Olivier Maradiaga MD at 13:24 EDT , Discharge Plan Triage Chief Complaint: Fall ED Provider: Joel Mccarthy Dx/Rx/DC Orders Clinical Impression: Contusion of sacrum, Hyperlipidemia Instructions: ED Coccyx or Sacrum Contusion Prescriptions: New hydrocodone-acetaminophen [hydrocodone-acetaminophen] 1 TABLET tablet 1 tab PO Q6H PRN PRN (Reason: Pain) 3 Days Qty: 10 0RF No Action ascorbic acid (vitamin C) 500 mg capsule 1,000 mg PO QDAY carbidopa-levodopa 25-100 mg tablet 1.5 tab PO TID multivitamin tablet 1 tab PO DAILY Metamucil 3.4 gram/5.4 gram powder 1 tsp PO DAILY Rx Instructions: mix into at least 4 oz water or juice before administering mirtazapine 15 MG tablet 7.5 mg PO QHS metoprolol tartrate 25 mg tablet 12.5 mg PO BID Qty: 90 3RF Primary Care Provider: Howard Zimmerman Chi Referrals: Howard Zimmerman Chi, MD [Primary Care Provider] - 5-7 Days Disposition Disposition: Home, Self Care
--- NOTE | 2022-04-14 12:49 | RAD_ITS ---
STUDY: X-RAY - SACRUM/COCCYX REASON FOR EXAM: Female, 86 years old. Pain. TECHNIQUE: 3 view(s) of the sacrum and coccyx were obtained. COMPARISON: None. FINDINGS: Normal bilateral sacroiliac joints. Normal visualized sacral ala and fused sacral bodies. Normal sacrococcygeal junction with a normal angulation. Normal coccygeal segments. Degenerative changes of the lower lumbar vertebrae. Phleboliths are seen in the pelvis. RAD/Sacrum-Coccyx min 2 Views IMPRESSION: Degenerative changes. No fracture is seen. Electronically Signed: Olivier Maradiaga MD at 13:24 EDT ,
== END 2022-04-14 14:13 | disposition home or self-care (01) ==
PROVIDERS: Emergency Provider Emergency Medicine; PCP Family Medicine Geriatric Medicine; Visit Provider Emergency Medicine
DX: S30.0XXA Contusion of lower back and pelvis, initial encounter (principal); G20 Parkinson's disease; E78.5 Hyperlipidemia, unspecified; I10 Essential (primary) hypertension; R05.9 Cough, unspecified; W18.30XA Fall on same level, unspecified, initial encounter
CPT/HCPCS: 72220; 99282

== ENCOUNTER → 2022-04-19 | Outpatient (CLI) | payer MEDICARE, SELFPAY ==
[2022-04-19 11:40] LABS: Anion Gap 3 (5-15); BUN 20 mg/dL (7-18); BUN/Creat Ratio 16.4 RATIO (10-20); Chloride 106 mmol/L (98-107); Creatinine, Serum 1.22 mg/dL (0.55-1.02); EST Glomerular Filtration Rate 44 mL/min (>60); Est Glom Filt Rate - Afr Amer 54 mL/min (>60); Glucose 89 mg/dL (74-106); Potassium 4.4 mmol/L (3.5-5.1); Sodium Level 138 mmol/L (136-145)
== END | disposition home or self-care (01) ==
LOC: POLAB3 11:10
PROVIDERS: PCP Family Medicine Geriatric Medicine; Visit Provider Family Medicine Geriatric Medicine
DX: E87.1 Hypo-osmolality and hyponatremia (principal)
CPT/HCPCS: 36415; 80048

== ENCOUNTER 2022-05-12 10:42 | Emergency (ER) | payer MEDICARE, SELFPAY ==
[2022-05-12 10:42] VITALS: BP 104/66; PULSE 81; RESP 16; TEMP 36.3; O2SAT 99; BMI 18.8
--- NOTE | 2022-05-12 12:13 | EKG12_ITS ---
Test Reason : Blood Pressure : / mmHG Vent. Rate : 072 BPM Atrial Rate : 072 BPM P-R Int : 000 ms QRS Dur : 084 ms QT Int : 370 ms P-R-T Axes : 000 094 -47 degrees QTc Int : 405 ms Sinus rhythm Rightward axis Nonspecific T wave abnormality Abnormal ECG Confirmed by REY MASON, DARIO ([id number]), editor newspaper LILIAN VILLEGAS ([id number]) on 05/15/2022 11:21:31 AM Referred By: Confirmed By:DARIO LE MD
--- NOTE | 2022-05-12 12:22 | EX.ED.DYSGE1 ---
[facility] <ALEX Jaramillo - Last Filed: 05/12/22 14:37> History of Present Illness Chief Complaint: Fall Narrative Narrative: 86-year-old female with history of Parkinson's disease presents to the emergency department after feeling dizzy, having mechanical fall. Patient states that she was in the bathroom this morning, felt dizzy and lightheaded, she then sat on the toilet, she then fell off the toilet onto her hands and knees, she sustained a skin abrasion to her right wrist, and a decent skin tear to the right lower leg. Patient was able to get up on her own accord, she called her son, and here for evaluation secondary to the skin tear of the right leg. Patient states that her dizziness has ceased. Patient states before she did leave the house, she did have a bowel movement. Patient denies any chest pain or shortness of breath. Patient denies any recent illnesses. Patient's tetanus vaccination is unknown. [facility] <ALEX Jaramillo - Last Filed: 05/12/22 14:37> [facility] Medical History Acute bronchitis, unspecified Acute sinusitis, unspecified Contact with and (suspected) exposure to other viral communicable diseases Essential hypertension History of atrial myxoma Hyperlipidemia Hypertension Lymphoma Nonrheumatic mitral (valve) prolapse Nonrheumatic mitral valve regurgitation Nonrheumatic tricuspid valve regurgitation Parkinsons disease Parotid tumor Premature atrial contractions Premature ventricular contraction Home Medications ascorbic acid (vitamin C) 500 mg capsule 1,000 mg PO QDAY 12/31/17 [History Last Taken Unknown] multivitamin 1 tab PO DAILY 11/20/18 [History Last Taken Unknown] mirtazapine 15 mg tablet 7.5 mg PO QHS 06/17/19 [History Last Taken Unknown] metoprolol tartrate 25 mg tablet 12.5 mg PO BID #90 tabs 09/19/21 [Rx Last Taken Unknown] carbidopa 25 mg-levodopa 100 mg tablet 1.5 tab PO TID 11/23/21 [History Last Taken Unknown] psyllium husk 3.4 gram/5.4 gram oral powder (Metamucil) 1 tsp PO DAILY 11/23/21 [History Last Taken Unknown] hydrocodone-acetaminophen 5-325mg 5mg-325mg 1 tab PO Q6H PRN PRN Pain 3 days #10 TABLETS 04/14/22 [Rx Last Taken Unknown] Allergy/AdvReac Type Severity Reaction Status Date / Time Penicillins Allergy Rash Verified 12/02/21 14:11 tramadol AdvReac Other Verified 04/14/22 12:24 Surgical History History of laparoscopic cholecystectomy History of splenectomy Social History Smoking Status: Never smoker alcohol intake: current details: occasional substance use type: does not use ROS <ALEX Jaramillo - Last Filed: 05/12/22 14:37> ROS ED ROS Narrative Constitutional: Negative for fever, chills, weight loss, weakness Eyes: Negative for vision loss, vision change, double vision ENT: Negative for any sore throat, ear pain, congestion Cardiovascular: Negative for any chest pain, tightness, palpitations Respiratory: Negative for any cough, sputum production, hemoptysis, dyspnea, dyspnea on exertion, orthopnea Gastrointestinal: Negative for any abdominal pain, nausea, vomiting, diarrhea, constipation, blood in stool, blood in vomit : Negative for any urinary frequency, dysuria, retention, blood in urine Muscle skeletal: Negative for any muscle joint pain, stiffness, myalgias, arthralgias, neck pain, back pain. Positive right leg pain, Neurological: Negative for any headache, syncope, numbness or tingling. Positive for feeling of dizziness, near syncope Skin: Negative for any rashes, lumps, itching, abrasions. Positive laceration, skin tear. Psychiatric: Negative for any depression, anxiety, stress, suicidal ideation, homicidal ideation Hematologic: Negative for any easy bruising, excessive bruising, easy bleeding Allergies: Negative for any eczema, hives, rash EXAM <ALEX Jaramillo - Last Filed: 05/12/22 14:37> Physical Exam Narrative Exam Narrative: Vital signs reviewed. HEET: Head normocephalic atraumatic, TMs clear bilaterally. Posterior pharynx is clear, moist mucous membranes. Nares clear bilaterally. Neck: Supple with no lymphadenopathy or tenderness. No signs of meningismus, negative jolt sign. Cardiac: Regular rate and rhythm no murmurs gallops or rubs, equal peripheral pulses bilaterally. Respiratory: Lungs clear to auscultation bilaterally. No chest tenderness. Abdomen: Soft, nontender, nondistended. No abdominal bruit or pulsatile masses. No hepatosplenomegaly Extremities: No peripheral edema, no signs of gross trauma or deformity. Active full range of motion of all extremities. 5 cm half [place] shaped skin flap to lateral right lower extremity Neuro: Cranial nerves II through XII intact, no focal neurological deficits. Skin: Clean dry and intact with no rash, purpura, petechiae, vesicles or pustules. Skin tear to the right lower extremity, this is on the lateral aspect, there is about 5 cm half [place] shaped flap Backs/flank: No CVA tenderness, no midline spinal tenderness, no deformity. Psych: Normal mood and affect. No SI, HI or acute psychosis. Const Vital Signs: 05/12/22 10:42 05/12/22 12:01 Temperature 97.4 F L Temperature Source Temporal Pulse Rate 81 Respiratory Rate 16 Respiratory Effort Normal Non-Labored Blood Pressure 104/66 Blood Pressure Mean 78 Pulse Ox 99 Oxygen Delivery Method Room Air <Dr. Joel Mccarthy DO - Last Filed: 05/12/22 15:38> Physical Exam Const Vital Signs: 05/12/22 10:42 05/12/22 12:01 Temperature 97.4 F L Temperature Source Temporal Pulse Rate 81 Respiratory Rate 16 Respiratory Effort Normal Non-Labored Blood Pressure 104/66 Blood Pressure Mean 78 Pulse Ox 99 Oxygen Delivery Method Room Air [facility] <ALEX Jaramillo - Last Filed: 05/12/22 14:37> [facility] Lab Data Labs: Laboratory Results - last 24 hr 05/12/22 05/12/22 05/12/22 12:31 12:31 13:44 WBC 15.7 H RBC 4.06 L Hgb 12.8 Hct 39.0 MCV 96.1 MCH 31.5 MCHC 32.8 RDW Std Deviation 48.5 H RDW Coeff of [place] 13.6 Plt Count 382 MPV 9.1 Immature Gran % (Auto) 0.400 Neut % (Auto) 59.5 Lymph % (Auto) 29.8 [place] % (Auto) 8.5 Eos % (Auto) 0.3 Baso % (Auto) 1.5 H Absolute Neuts (auto) 9.3 H Absolute Lymphs (auto) 4.67 H Nucleated RBC % 0 Sodium 140 Potassium 4.2 Chloride 103 Carbon Dioxide 32.0 Anion Gap 5 BUN 20 H Creatinine 1.17 H Estim Creat Clear Calc 25.17 Est GFR (MDRD) Af Amer 56 L Est GFR (MDRD) Non-Af 47 L BUN/Creatinine Ratio 17.1 Glucose 106 Calcium 9.6 Troponin I High Sens 6 5 Radiography Diagnostic Testing: Clinical Impression(s) from Imaging Studies Chest X-Ray 05/12/22 12:45 IMPRESSION: Mild opacities in the left mid and right lower lung, possible pneumonia. Electronically Signed: Ree Albright MD at 13:03 EST Reading Location ID and State: [facility] / [place] Tel , Service support , Treatment and Re-Evaluation Narrative: Patient appears well, patient appears nontoxic, vital signs are stable. Patient presents to the emergency department after a near syncopal episode, right leg laceration. Patient did receive a full cardiac work-up. Patient's EKG was unremarkable, no ACS, OR. Patient's blood work showed a leukocytosis with a white blood count of 15.7 however looking at the past records, this is consistent for the patient. Patient's chemistries were unremarkable. Patient's initial troponin was 6, repeat delta troponin was 5, there is no evidence to suspect any acute cardiac involvement. Patient did receive a chest x-ray, this was read by the ER physician and appear to be negative, radiology did read this as possible pneumonia however the patient has had a cough for greater than for 5 months, she has no fever chills, no new symptoms. Patient was ambulatory to the bathroom. Patient after IV fluids felt much better. I do believe that she was slightly dehydrated as well. The patient's wound on her right leg has a total of 11 stitches, she will have these removed in 12 to 14 days by her PCP. She was given return precaution. Patient and son both feel comfortable taking the patient home. She was given return precautions. <Dr. Joel Mccarthy, DO - Last Filed: 05/12/22 15:38> [facility] Narrative Medical decision making narrative: I have personally performed a face to face assessment of the patient and have reviewed the TONE Note. I performed a substantive portion of the visit including all aspects of the following. My boyd findings include: History: Patient presents after a fall that occurred this morning. Patient states she had a near syncopal episode where she got lightheaded and felt weak. Patient fell to the ground. Patient denies any loss of consciousness. Patient denies any head injury. Patient did hit her right leg when she fell. Patient denies any paresthesias or weakness. Patient denies any chest pain or palpitations. Patient denies any shortness of breath or cough. Exam: Vital signs are stable. Patient is afebrile. Patient is in no acute distress. There is mild tenderness over the right lower leg. There is a 5 cm full-thickness L-shaped laceration over the anterior lateral aspect of the right lower leg. There is no active bleeding. There are no foreign bodies noted. There is good range of motion of the lower extremities bilaterally. Pedal pulses are equal bilaterally. Sensation was intact to light touch bilaterally in lower extremities. Medical Decision Making: CBC shows a leukocytosis of 15.7. This is chronic for the patient. CT patient metabolic profile was essentially within normal limits. Initial high-sensitivity troponin was normal at 6. 2-hour repeat high-sensitivity troponin was normal at 5. Portable 1 view chest x-ray was obtained. On my interpretation, lung cary are clear. There is normal cardiac silhouette. Bony thorax is normal. There is no acute process noted. Radiologist also interpreted the x-ray and agrees. Patient was given IV fluids. The wound was cleaned and irrigated with copious amounts of normal saline. The wound was closed by the nurse practitioner under my supervision. Patient tolerated the procedure well. Bacitracin dressing was applied. Patient was instructed to follow-up with her primary care physician in 5 to 7 days for wound recheck. Patient understood and was agreeable with the plan. All questions were answered. Lab Data Attestation: I reviewed the patient's lab results. Labs: Laboratory Results - last 24 hr 05/12/22 05/12/22 05/12/22 12:31 12:31 13:44 WBC 15.7 H RBC 4.06 L Hgb 12.8 Hct 39.0 MCV 96.1 MCH 31.5 MCHC 32.8 RDW Std Deviation 48.5 H RDW Coeff of [place] 13.6 Plt Count 382 MPV 9.1 Immature Gran % (Auto) 0.400 Neut % (Auto) 59.5 Lymph % (Auto) 29.8 [place] % (Auto) 8.5 Eos % (Auto) 0.3 Baso % (Auto) 1.5 H Absolute Neuts (auto) 9.3 H Absolute Lymphs (auto) 4.67 H Nucleated RBC % 0 Sodium 140 Potassium 4.2 Chloride 103 Carbon Dioxide 32.0 Anion Gap 5 BUN 20 H Creatinine 1.17 H Estim Creat Clear Calc 25.17 Est GFR (MDRD) Af Amer 56 L Est GFR (MDRD) Non-Af 47 L BUN/Creatinine Ratio 17.1 Glucose 106 Calcium 9.6 Troponin I High Sens 6 5 Radiography Diagnostic Testing: Clinical Impression(s) from Imaging Studies Chest X-Ray 05/12/22 12:45 IMPRESSION: Mild opacities in the left mid and right lower lung, possible pneumonia. Electronically Signed: Ree Albright MD at 13:03 EST Reading Location ID and State: [facility] / [place] Tel , Service support , Procedures <ALEX Jaramillo - Last Filed: 05/12/22 14:37> Lacerations Lower extremity laceration: Length: 5 cm Depth: Skin Shape: Flap Prep: Sterile Conditions and Shure-Clens Laceration repair: Irrigated, Lidocaine with epi and Wound explored Irrigated (ml): 250 Number of Sutures/[place]: 11 Suture Information: [place] Comment: Sterile gloves, sterile drapes were used. Patient tolerated well, 11 simple erupted sutures of 4-0 [place]. Edges approximate nicely. Discharge Plan Triage Chief Complaint: Fall ED Midlevel Provider: Bart Bhandari ED Provider: Joel Mccarthy Dx/Rx/DC Orders Clinical Impression: Near syncope, Laceration of leg, Acute dehydration Instructions: Causes of Syncope, ED Dehydration (Adult), ED Laceration Extremity Prescriptions: No Action ascorbic acid (vitamin C) 500 mg capsule 1,000 mg PO QDAY carbidopa-levodopa 25-100 mg tablet 1.5 tab PO TID multivitamin tablet 1 tab PO DAILY Metamucil 3.4 gram/5.4 gram powder 1 tsp PO DAILY Rx Instructions: mix into at least 4 oz water or juice before administering mirtazapine 15 MG tablet 7.5 mg PO QHS hydrocodone-acetaminophen [hydrocodone-acetaminophen] 1 TABLET tablet 1 tab PO Q6H PRN PRN (Reason: Pain) 3 Days Qty: 10 0RF metoprolol tartrate 25 mg tablet 12.5 mg PO BID Qty: 90 3RF Primary Care Provider: Howard Zimmerman Chi Referrals: Howard Zimmerman Chi, MD [Primary Care Provider] - Activity Restrictions/Additional Instructions: Please have your sutures removed from your right lower leg in 12 to 14 days. Disposition Disposition: Home, Self Care Discharge Date/Time: 05/12/22 14:48
[2022-05-12] MEDS: 0.9% Normal Saline 1,000 ML 1000 ML IV (12:31)
[2022-05-12 12:41] LABS: Absolute Lymphocyte Count 4.67 X10^3/uL (0.83-4.51); Absolute Neutrophil Count 9.3 X10^3/uL (2.0-7.7); Basophil# 0.24 X10^3/uL; Basophil% 1.5 % (0-1); Eosinophil# 0.05 X10^3/uL; Eosinophils% 0.3 % (0-5); Hemoglobin 12.8 g/dL (12.0-15.0); Lymphocyte # 4.67 X10^3/ul (0.83-4.51); Lymphocyte % 29.8 % (19-41); Mean Corp Hgb Conc 32.8 g/dL (32-36); Mean Corpuscular Hgb 31.5 pg (27.0-32.0); Mean Corpuscular Volume 96.1 fL (81-99); Mean Platelet Vol. 9.1 fl (6.2-12.0); Monocyte# 1.34 X10^3/uL; Monocyte% 8.5 % (0-10); NRBC Flagged by Analyzer 0 % (0-5); Neutrophil # 9.32 X10^3/uL (2.7-7.7); Neutrophil % 59.5 % (47-70); Platelet Count 382 K/mm3 (150-450); RBC Distribution Width CV 13.6 % (11.6-14.6); RBC Distribution Width SD 48.5 fl (35.1-43.9); Red Blood Count 4.06 M/mm3 (4.2-5.4); White Blood Count 15.7 K/mm3 (4.4-11.0)
--- NOTE | 2022-05-12 12:45 | RAD_ITS ---
HISTORY: dizziness. TECHNIQUE: XR Chest 1 View. COMPARISON: 04/10/2022. FINDINGS: CARDIOMEDIASTINAL BORDERS: Cardiac silhouette within normal limits in size. Mediastinal contour unremarkable with midline sternotomy. LUNGS: Mild opacities in the mid left and right lower lung. PLEURA: No pleural effusion or pneumothorax seen. OSSEOUS STRUCTURES: Degenerative change. RAD/Chest 1 View (Portable) IMPRESSION: Mild opacities in the left mid and right lower lung, possible pneumonia. Electronically Signed: Ree Albright MD at 13:03 EST ,
[2022-05-12 13:00] LABS: Anion Gap 5 (5-15); BUN 20 mg/dL (7-18); BUN/Creat Ratio 17.1 RATIO (10-20); Calcium,Total 9.6 mg/dL (8.5-10.1); Chloride 103 mmol/L (98-107); Creatinine, Serum 1.17 mg/dL (0.55-1.02); EST Glomerular Filtration Rate 47 mL/min (>60); Est Glom Filt Rate - Afr Amer 56 mL/min (>60); Estimated Creatinine Clearance 25.17 ml/min; Glucose 106 mg/dL (74-106); Potassium 4.2 mmol/L (3.5-5.1); Sodium Level 140 mmol/L (136-145); Troponin-I HS 6 pg/mL (3.0-54.0)
[2022-05-12] MEDS: Diphth,Pertuss(Acell),Tet Vac 0.5 ML Vial IM (13:40)
[2022-05-12 14:07] LABS: Troponin-I HS 5 pg/mL (3.0-54.0)
== END 2022-05-12 14:48 | disposition home or self-care (01) ==
PROVIDERS: Nurse Practitioner; Emergency Provider Emergency Medicine; PCP Family Medicine Geriatric Medicine; Visit Provider Emergency Medicine
DX: S81.811A Laceration without foreign body, right lower leg, initial encounter (principal); G20 Parkinson's disease; E86.0 Dehydration; S61.511A Laceration without foreign body of right wrist, initial encounter; E78.5 Hyperlipidemia, unspecified; I10 Essential (primary) hypertension; R55 Syncope and collapse; W18.11XA Fall from or off toilet without subsequent striking against object, initial encounter; Z23 Encounter for immunization
CPT/HCPCS: 12002; 71045; 80048; 84484; 85025; 90715; 93005; 96372; 99283; J7030; A4216

== ENCOUNTER → 2022-05-25 | Outpatient (CLI) | payer MEDICARE, SELFPAY ==
[2022-05-25 17:09] LABS: Absolute Lymphocyte Count 6.59 X10^3/uL (0.83-4.51); Absolute Neutrophil Count 7.1 X10^3/uL (2.0-7.7); Basophil% 2.5 % (0-1); Eosinophils% 1.9 % (0-5); Hematocrit 37.8 % (37-47); Hemoglobin 12.5 g/dL (12.0-15.0); Lymphocyte # 6.59 X10^3/ul (0.83-4.51); Lymphocyte % 40.8 % (19-41); Mean Corp Hgb Conc 33.1 g/dL (32-36); Mean Corpuscular Hgb 31.6 pg (27.0-32.0); Mean Corpuscular Volume 95.5 fL (81-99); Mean Platelet Vol. 9.5 fl (6.2-12.0); Monocyte# 1.71 X10^3/uL; Monocyte% 10.6 % (0-10); NRBC Flagged by Analyzer 0 % (0-5); Neutrophil # 7.11 X10^3/uL (2.7-7.7); Neutrophil % 43.8 % (47-70); POSITIVE DIFFERENTIAL YES; Platelet Count 376 K/mm3 (150-450); RBC Distribution Width CV 13.6 % (11.6-14.6); Red Blood Count 3.96 M/mm3 (4.2-5.4); White Blood Count 16.2 K/mm3 (4.4-11.0)
[2022-05-25 17:23] LABS: Differential Indicated SCAN CRITERIA MET
[2022-05-25 17:54] LABS: Differential Comment SCANNED
[2022-05-25 17:59] LABS: ALB/GLOB Ratio 0.9 RATIO (0.9-2.4); AST(SGOT) 25 U/L (15-37); Alanine Aminotransfer ALT/SGPT 11 U/L (13-56); Albumin, Serum 3.3 g/dL (3.2-5.0); Alkaline Phosphatase 86 U/L (45-117); Anion Gap 5 (5-15); BUN 21 mg/dL (7-18); Chloride 102 mmol/L (98-107); Creatinine, Serum 1.31 mg/dL (0.55-1.02); EST Glomerular Filtration Rate 41 mL/min (>60); Est Glom Filt Rate - Afr Amer 50 mL/min (>60); Globulin 3.5 g/dL (2.2-4.2); Glucose 97 mg/dL (74-106); Potassium 4.2 mmol/L (3.5-5.1); Protein, Total 6.8 g/dL (6.4-8.2); Sodium Level 138 mmol/L (136-145); Thyroid Stim Hormone (TSH) 2.03 uIU/mL (0.358-3.74); Vitamin D,25 Hydroxy 37.9 ng/mL
[2022-05-26 12:07] LABS: Pathologist Review Reviewed
== END | disposition home or self-care (01) ==
LOC: POLAB3 16:29
PROVIDERS: PCP Family Medicine Geriatric Medicine; Visit Provider Family Medicine Geriatric Medicine
DX: E55.9 Vitamin D deficiency, unspecified (principal); R53.83 Other fatigue
CPT/HCPCS: 36415; 80053; 82306; 84443; 85025

== ENCOUNTER → 2022-06-01 | Outpatient (CLI) | payer MEDICARE, SELFPAY ==
[2022-06-01 18:24] LABS: M R Staph aureus DNA By PCR Negative (Negative); Probe Check PASS; Staph aureus DNA By PCR NEGATIVE (Negative)
== END | disposition home or self-care (01) ==
LOC: LABSPEC 13:58
PROVIDERS: PCP Family Medicine Geriatric Medicine; Visit Provider Family Medicine Geriatric Medicine
DX: L03.115 Cellulitis of right lower limb (principal)
CPT/HCPCS: 87070; 87075; 87077; 87102; 87186; 87205; 87206; 87640

== ENCOUNTER 2022-06-14 09:15 | Outpatient (RCR) | payer MEDICARE, SELFPAY ==
[2022-06-07 09:16] VITALS: BP 93/62; PULSE 75; RESP 16; TEMP 35.8; BMI 19.8
--- NOTE | 2022-06-07 11:28 | PCM.WC.HP ---
History of Present Illness Date of Service: 06/07/22 Chief Complaint: Follow-up right medial lower leg History of Wound: 87-year-old white female that fell in her bathroom approximately 3 to 4 weeks ago. Lacerated her right leg. Was seen in the emergency room and had suturing done. Dr. Cardenas removed sutures and the wound dehisced. He cultured the wound and found she has staph and has her on doxycycline. She is currently not using anything but a cover dressing. Was told to just rinse it. [facility] [place] Medical History Acute bronchitis, unspecified Acute sinusitis, unspecified Contact with and (suspected) exposure to other viral communicable diseases Essential hypertension History of atrial myxoma Hyperlipidemia Hypertension Lymphoma Nonrheumatic mitral (valve) prolapse Nonrheumatic mitral valve regurgitation Nonrheumatic tricuspid valve regurgitation Parkinsons disease Parotid tumor Premature atrial contractions Premature ventricular contraction Home Medications ascorbic acid (vitamin C) 500 mg capsule 1,000 mg PO QDAY 12/31/17 [History Last Taken Unknown] multivitamin 1 tab PO DAILY 11/20/18 [History Last Taken Unknown] metoprolol tartrate 25 mg tablet 12.5 mg PO BID #90 tabs 09/19/21 [Rx Last Taken Unknown] carbidopa 25 mg-levodopa 100 mg tablet 1.5 tab PO TID 11/23/21 [History Last Taken Unknown] psyllium husk 3.4 gram/5.4 gram oral powder (Metamucil) 1 tsp PO DAILY PRN Constipation 11/23/21 [History Last Taken Unknown] Allergy/AdvReac Type Severity Reaction Status Date / Time Penicillins Allergy Rash Verified 06/07/22 09:27 tramadol AdvReac Other Verified 06/07/22 09:27 Surgical History History of laparoscopic cholecystectomy History of splenectomy Social History Smoking Status: Never smoker alcohol intake: current details: occasional substance use type: does not use ROS Constitutional Constitutional: Reports systems reviewed and no addt'l complaints, except as documented Eyes Eyes: Reports systems reviewed and no addt'l complaints, except as documented ENT HEENT: Reports systems reviewed and no addt'l complaints, except as documented Cardiovascular Cardiovascular: Reports systems reviewed and no addt'l complaints, except as documented Respiratory/Chest Respiratory/Chest: Reports systems reviewed and no addt'l complaints, except as documented Gastrointestinal Gastrointestinal: Reports systems reviewed and no addt'l complaints, except as documented Genitourinary Genitourinary: Reports systems reviewed and no addt'l complaints, except as documented Musculoskeletal Musculoskeletal: Reports systems reviewed and no addt'l complaints, except as documented Integumentary Integumentary: Reports wounds and other Details: Laceration dehisce right lower leg open and gaping positive slough and infection Neurologic Neurologic: Reports systems reviewed and no addt'l complaints, except as documented Psychiatric Psychiatric: Reports systems reviewed and no addt'l complaints, except as documented Endocrine Endocrinology: Reports systems reviewed and no addt'l complaints, except as documented Hematologic/Lymphatic Hematologic/Lymphatic: Reports systems reviewed and no addt'l complaints, except as documented Allergic/Immunologic Allergic/Immunologic: Reports systems reviewed and no addt'l complaints, except as documented Vital Signs Vital Signs Vital Signs: 06/07/22 09:16 Temperature 96.4 F L Temperature Source Temporal Pulse Rate 75 Respiratory Rate 16 Blood Pressure 93/62 Blood Pressure Mean 72 Blood Pressure Source Monitor Blood Pressure Position Sitting Blood Pressure Location Left Arm Oxygen Delivery Method Room Air Weight Weight: 105 lb Body Mass Index (BMI) 19.8 Physical Exam Const oriented x3 General Appearance: cooperative Exam Limitations: no limitations Resp normal respiratory effort Effort and Inspection: able to speak in complete sentences Auscultation: clear to auscultation bilaterally Cardio regular rate and regular rhythm Palpation: normal PMI Rate: regular rate Rhythm: regular rhythm GI Auscultation: normoactive bowel sounds Palpation: soft and no hepatosplenomegaly external exam normal Extremity normal to inspection General Extremity: normal exam except as noted and other findings Other Details: Gaping laceration on the right lower leg Skin no rashes or lesions noted Trauma: laceration Wounds: wounds noted Wound Narrative: Post sutures dehisced now infected gaping with slough Neuro oriented x3 Psych Appearance: grossly normal Speech: normal speech Thought Content: normal thought content Judgement: judgement good Debridement Note Debridement Note Wound debrided: Right lateral lower leg laceration dehisced Type of Debridement: Excisional debridement Anesthesia Used: 4% Lidocaine Solution and 5% Lidocaine Gel Depth: Down to and including healthy tissue and in the subcutaneous layer Percentage of wound debrided: 100 Instrument Used: 7mm curette Tissue Removed: Slough and devitalized tissue Severity: Fat Layer Exposed Amount of bleeding with debridement: Moderate Bleeding Controlled with: Compression and gauze Patient tolerated procedure: Patient tolerated procedure well Post-Debridement Measurements and Additional Note: Post-Debridement Measurements/Treatment - Nurse 1 - General Ulcer Assessment Start: 06/07/22 09:13 Freq: Status: Active Protocol: DAGO Activity Type Activity Date Activity User E-sign Co-sign Detail Recorded Client Recorded Date Recorded By Document 06/07/22 09:16 [facility] [id number] 06/07/22 09:24 [facility] 06/07/22 09:16 - Today's Visit Information Type of service Initial Visit Arrival Mode Ambulatory Transfer Assistance None Patient Identification Verified (Name & Yes ) Patient Requires Transmission-Based No Precautions Height and Weight Height 5 ft 1 in Weight 105 lb Weight in Pounds 105.0 lbs Weight Measurement Method Estimated by Patient Body Mass Index (BMI) 19.8 BMI Classification Normal BSA - Derek 1.44 Vital Signs Temperature (97.8 F-99.1 F) 96.4 F L Temperature Source Temporal Pulse Rate (60-100) 75 Pulse Location Monitor Respiratory Rate (12-18) 16 Respiratory rate source Observation Oxygen Delivery Method Room Air Blood Pressure (90/60-120/80) 93/62 Blood Pressure Mean 72 Source Monitor Position Sitting Blood Pressure Location Left Arm History Since Last Visit- (Skip if this is Patient's initial visit) Left Footwear Regular Shoe Right Footwear Regular Shoe Pain Scale: 0-10 Numeric Is Patient Pain Free? Yes Lower Extremity Assessment/ Foot Assessment/ Toe Nail Assessment Right -Posterior Tibial Doppler Multiphasic -Dorsalis Pedis Doppler Multiphasic -Extremity Color Hyperpigmented -Hair Growth on Legs No -Hair Growth on Toes No -Temperature of Extremity Warm -Other Deformity No -Prior Foot Ulcer No -Charcot Joint No -Prior Amputation No -Thick No -Discolored No -Deformed No -Improper Length & Hygeine No Left -Posterior Tibial Doppler Multiphasic -Dorsalis Pedis Doppler Multiphasic -Extremity Color Hyperpigmented -Hair Growth on Legs No -Hair Growth on Toes No -Temperature of Extremity Warm -Capillary Refill Less than 3 Seconds -Other Deformity No -Prior Foot Ulcer No -Charcot Joint No -Prior Amputation No -Thick No -Discolored No -Deformed No -Improper Length & Hygeine No Neuropathy Assessment Feet - Top Side and Bottom <Entered> (a) Communication Assessment Preferred language [place] Edger Runner Required No Able to Read Yes Able to Write Yes Communication Tools None Right Hearing Abillity Hard of Hearing ,Use of Hearing Aid Left Hearing Abillity Hard of Hearing ,Use of Hearing Aid Visual Assistive Devices None Teaching Assessment Preferences Verbal,Written, Audio/Visual, Demonstration Barriers to Learning None Readiness To Learn Excellent Willingness to Engage in Self Management High Activies Readiness to Engage in Self Management High Activities Anxiety Level Calm Cooperation Cooperative Perception Coherent Interest in Health Problem Asks Questions Education Importance Acknowledges Need Does Patient Smoke tobacco or other No substances Smoking Status Never smoker Is Patient Diabetic Yes Functional Assessment Recent Decline in Ability to Perform Denies Any Declines Culture/Anglican/Supervisor Blasting Cultural/Anglican Needs that may affect No Treatment Plan Teaching: Wound Center *Welcome to the Wound Center -Person Taught Patient -Teaching Method Discussion -Response to teaching Verbalize understanding Welcome to the Wound Care Center [place] (a) 1 - + WC - Nurse 1 - General Ulcer Measurement Start: 06/07/22 09:13 Freq: Status: Active Protocol: Activity Type Activity Date Activity User E-sign Co-sign Detail Recorded Client Recorded Date Recorded By Document 06/07/22 09:16 [facility] [id number] 06/07/22 09:24 [facility] 06/07/22 09:16 Wound Center Nurse 1 #1- R ABDALLA -Combined with other wound No -Current Size (cm) - Length 6 -Current Size (cm) - Width 3.4 -Current Size (cm) - Depth 0.3 -Total Square Cm 20.4 -Date of Last Picture (Recall this 06/07/22 field) -Photo Taken Yes -Epithelialization None Present -Tunneling No -Undermining/Tunneling No -Circular Undermining No -Exudate Amt Medium -Exudate Type Serosanguineous -Wound Margin Distinct, Outline Attached -Granulation Amt None Present (0 %) -Slough/Fibrin Yes -Necrosis Amt Large (67-100%) -Necrotic Tissue Type Adherent Slough -Texture (Juanis-wound Skin Appearance) Assessed, Scarring -Moisture (Juanis-wound Skin Appearance) Assessed,Dry/ Scaly -Color (Juanis-wound Skin Appearance) Assessed -Temperature (Juanis-wound Skin No Abnormality Appearance) (Pt Warm) -Tenderness on Palpation (Juanis-wound No Skin Appearance) -Ulcer Cleansing Rinsed/ Irrigated with Saline -Foul Odor after Cleansing No -Anesthetic Used 5% Lidocaine Gel Right Calf (cm) 29.4 Right Ankle (cm) 18 Left Calf (cm) 28 Left Ankle (cm) 18 WC - Nurse 2 - General Ulcer CM Notes Start: 06/07/22 09:13 Freq: Status: Active Protocol: Activity Type Activity Date Activity User E-sign Co-sign Detail Recorded Client Recorded Date Recorded By Document 06/07/22 09:38 MW [id number] 06/07/22 09:46 MW 06/07/22 09:38 Wound Center Nurse 2 #1- R ABDALLA -Time 09:39 -Correct Patient Yes -Correct Side, Site, Position Yes -Correct Procedure Yes -Procedure Performed Yes -Type of Procedure Debridement -Clinical Debridement Subcutaneous -Tissue Removed Subcutaneous -Post Debridement (cm) - Length 5.5 -Post Debridement (cm) - Width 3.5 -Post Debridement (cm) - Depth 0.4 -Total Square (Post) (cm) 19.25 -Area of Debridement (cm) - Length 5.5 -Area of Debridement (cm) - Width 3.5 -Total Square (Area) (cm) 19.25 -Tunneling No -Undermining/Tunneling No -Circular Undermining No -Wound/Ulcer Outcome Not Healed -Ulcer Cleansing Rinsed/ Irrigated with Saline -Foul Odor after Cleansing No -Bioengineered Tissue No -Bleeding Controlled with Pressure -Treatment Response Procedure Tolerated Well -Offloading No -Debridement - Subq, 1st 20sq cm Yes Pain Scale: 0-10 Numeric Is Patient Pain Free? Yes HODAN - Nurse 3 - General Ulcer D/C NN Start: 06/07/22 09:13 Freq: Status: Active Protocol: Activity Type Activity Date Activity User E-sign Co-sign Detail Recorded Client Recorded Date Recorded By Document 06/07/22 09:53 MW [id number] 06/07/22 09:53 MW 06/07/22 09:53 Wound Care Nurse 3 #1- R ABDALLA -Ulcer Cleansing Rinsed/ Irrigated with Saline -Foul Odor after Cleansing No -Negative Pressure Wound Therapy N/A -Primary Dressing Applied Aquacel Extra -Aquacel Extra 1 Right -Lotion applied to leg before No compression wrap -Tubular Bandage Single Layer -Size of Tubigrip Used Size D -Size D ($) 1 Treatment Response Procedure Tolerated Well Pain Scale: 0-10 Numeric Is Patient Pain Free? Yes Teaching: Wound Center Dressing Your Wound -Person Taught Patient -Teaching Method Discussion -Response to teaching Verbalize understanding WC - Visit Discharge Discharge Condition Stable Ambulatory Status Ambulatory Transportation Private Auto Accompanied by self Medication Reconcilliation completed & No provided to patient/care provider Clinical Summary of Care Provided Yes Assessment/Plan Assessment/Plan (1) Laceration of leg: CODE(S): S81.819A - Laceration without foreign body, unspecified lower leg, initial encounter PLAN: Wash right leg with antibacterial soap and apply Aquacel extra to wound base with moistened Adaptic and foam dressing Apply a tight single layer Tubigrip to the right leg follow-up in 1 week (2) Nonhealing nonsurgical wound: CODE(S): T14.8XXA - Other injury of unspecified body region, initial encounter (3) Infected wound: CODE(S): T14.8XXA - Other injury of unspecified body region, initial encounter; L08.9 - Local infection of the skin and subcutaneous tissue, unspecified PLAN: May continue taking antibiotic therapy PCP prescribed
[2022-06-14 09:17] VITALS: BP 108/66; PULSE 77; TEMP 36.3; BMI 19.8
--- NOTE | 2022-06-14 11:50 | PCM.WC.PN ---
History of Present Illness Date of Service: 06/14/22 Chief Complaint: Follow-up right medial lower leg History of Wound: 87-year-old white female that fell in her bathroom approximately 3 to 4 weeks ago. Lacerated her right leg. Was seen in the emergency room and had suturing done. Dr. Cardenas removed sutures and the wound dehisced. He cultured the wound and found she has staph and has her on doxycycline. She is currently not using anything but a cover dressing. Was told to just rinse it. Progress of Wound: Still a big hole in her right grier area. Looking better less slough wiped out clean. Currently using Aquacel extra and we will switch her over to Geovanna. Subjective Subjective Patient is doing well with the dressing changes and understanding care Objective Data Objective Data No sign of infection still has a large deep crater in her lower extremity with some slough in the bottom that is easily wiped out with debridement Vital Signs: Vital Signs Temp Pulse Resp BP O2 Del Method 97.3 F L 77 16 108/66 Room Air 06/14/22 09:17 06/14/22 09:17 06/07/22 09:16 06/14/22 09:17 06/07/22 09:16 Oxygen Delivery Method Room Air Weight: 105 lb Body Mass Index (BMI) 19.8 Lab / Micro Data Attestation: I reviewed the patient's lab results. Physical Exam Const oriented x3 General Appearance: cooperative Exam Limitations: no limitations Resp normal respiratory effort Effort and Inspection: able to speak in complete sentences Auscultation: clear to auscultation bilaterally Cardio regular rate and regular rhythm Palpation: normal PMI Rate: regular rate Rhythm: regular rhythm GI Auscultation: normoactive bowel sounds Palpation: soft and no hepatosplenomegaly external exam normal Extremity normal to inspection General Extremity: normal exam except as noted and other findings Other Details: Gaping laceration on the right lower leg Skin no rashes or lesions noted Trauma: laceration Wounds: wounds noted Wound Narrative: Post sutures dehisced now infected gaping with slough Neuro oriented x3 Psych Appearance: grossly normal Speech: normal speech Thought Content: normal thought content Judgement: judgement good Debridement Note Debridement Note Wound debrided: Right lower leg ulcer from trauma Type of Debridement: Excisional debridement Anesthesia Used: 5% Lidocaine Gel Depth: in the subcutaneous layer Percentage of wound debrided: 100 Instrument Used: 7mm curette Tissue Removed: Slough and fibrin Severity: Fat Layer Exposed Amount of bleeding with debridement: Mild Bleeding Controlled with: Compression and gauze Patient tolerated procedure: Patient tolerated procedure well Post-Debridement Measurements and Additional Note: Post-Debridement Measurements/Treatment WC - Nurse 1 - General Ulcer Assessment Start: 06/07/22 09:13 Freq: Status: Active Protocol: HODAN.LOWEXJarad Activity Type Activity Date Activity User E-sign Co-sign Detail Recorded Client Recorded Date Recorded By Document 06/07/22 09:16 [facility] [id number] 06/07/22 09:24 BM Document 06/14/22 09:17 [place] [id number] 06/14/22 09:18 [place] 06/07/22 06/14/22 09:16 09:17 WC - Today's Visit Information Type of service Initial Visit 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 ) Arrival Mode Ambulatory Ambulatory Transfer Assistance None Patient Identification Verified (Name & Yes Yes ) Patient Requires Transmission-Based No No Precautions Safety Precautions NA Height and Weight Height 5 ft 1 in Weight 105 lb Weight in Pounds 105.0 lbs Weight Measurement Method Estimated by Patient Body Mass Index (BMI) 19.8 19.8 BMI Classification Normal Normal BSA - Derek 1.44 Vital Signs Temperature (97.8 F-99.1 F) 96.4 F L 97.3 F L Temperature Source Temporal Temporal Pulse Rate (60-100) 75 77 Pulse Location Monitor Monitor Respiratory Rate (12-18) 16 Respiratory rate source Observation Oxygen Delivery Method Room Air Blood Pressure (90/60-120/80) 93/62 108/66 Blood Pressure Mean (mm Hg) 72 80 Source Monitor Monitor Position Sitting Blood Pressure Location Left Arm History Since Last Visit- (Skip if this is Patient's initial visit) Have you changed medications since your No last visit? Any new allergies or adverse reactions No Had a fall/change in ADL's that may No increase risk of falls Signs or symptoms of abuse and/or No neglect since last visit Have you been in the hospital since your No last visit? Has dressing in place as prescribed Yes Has compression in place as prescribed Yes Has offloadiing in place as prescribed N/A Experienced any changes in pain level or No management Left Footwear Regular Shoe Regular Shoe Right Footwear Regular Shoe Regular Shoe Pain Scale: 0-10 Numeric Is Patient Pain Free? Yes Yes Lower Extremity Assessment/ Foot Assessment/ Toe Nail Assessment Right -Posterior Tibial Doppler Multiphasic -Dorsalis Pedis Doppler Multiphasic -Extremity Color Hyperpigmented -Hair Growth on Legs No -Hair Growth on Toes No -Temperature of Extremity Warm -Other Deformity No -Prior Foot Ulcer No -Charcot Joint No -Prior Amputation No -Thick No -Discolored No -Deformed No -Improper Length & Hygeine No Left -Posterior Tibial Doppler Multiphasic -Dorsalis Pedis Doppler Multiphasic -Extremity Color Hyperpigmented -Hair Growth on Legs No -Hair Growth on Toes No -Temperature of Extremity Warm -Capillary Refill Less than 3 Seconds -Other Deformity No -Prior Foot Ulcer No -Charcot Joint No -Prior Amputation No -Thick No -Discolored No -Deformed No -Improper Length & Hygeine No Neuropathy Assessment Feet - Top Side and Bottom <Entered> (a) Communication Assessment Preferred language [place] 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 Required No Able to Read Yes Able to Write Yes Communication Tools None Right Hearing Abillity Hard of Hearing ,Use of Hearing Aid Left Hearing Abillity Hard of Hearing ,Use of Hearing Aid Visual Assistive Devices None Teaching Assessment Preferences Verbal,Written, Audio/Visual, Demonstration Barriers to Learning None Readiness To Learn Excellent Willingness to Engage in Self Management High Activies Readiness to Engage in Self Management High Activities Anxiety Level Calm Cooperation Cooperative Perception Coherent Interest in Health Problem Asks Questions Education Importance Acknowledges Need Does Patient Smoke tobacco or other No substances Smoking Status Never smoker Is Patient Diabetic Yes Functional Assessment Recent Decline in Ability to Perform Denies Any Declines 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 Cultural/Anglican Needs that may affect No Treatment Plan Teaching: Wound Center *Welcome to the Wound Center -Person Taught Patient -Teaching Method Discussion -Response to teaching Verbalize understanding Welcome to the Wound Care Center [place] (a) 1 - + WC - Nurse 1 - General Ulcer Measurement Start: 06/07/22 09:13 Freq: Status: Active Protocol: Activity Type Activity Date Activity User E-sign Co-sign Detail Recorded Client Recorded Date Recorded By Document 06/07/22 09:16 [facility] [id number] 06/07/22 09:24 [facility] Document 06/14/22 09:17 [place] [id number] 06/14/22 09:18 [place] 06/07/22 06/14/22 09:16 09:17 Wound Center Nurse 1 #1- R GRIER -Combined with other wound No No -Current Size (cm) - Length 6 4 -Current Size (cm) - Width 3.4 2 -Current Size (cm) - Depth 0.3 0.2 -Total Square Cm 20.4 8 -Date of Last Picture (Recall this 06/07/22 06/14/22 field) -Photo Taken Yes Yes -Epithelialization None Present -Tunneling No No -Undermining/Tunneling No No -Circular Undermining No No -Change in Wound Grade/Stage No -Exudate Amt Medium Large -Exudate Type Serosanguineous Yellow/Green -Wound Margin Distinct, Distinct, Outline Outline Attached Attached -Granulation Amt None Present (0 Small (1-33%) %) -Granulation Quality N/A -Slough/Fibrin Yes Yes -Necrosis Amt Large (67-100%) Large (67-100%) -Necrotic Tissue Type Adherent Slough Adherent Slough -Structure Exposed N/A -Texture (Juanis-wound Skin Appearance) Assessed, No Abnormality, Scarring Assessed -Moisture (Juanis-wound Skin Appearance) Assessed,Dry/ No Abnormality, Scaly Assessed -Color (Juanis-wound Skin Appearance) Assessed No Abnormality, Assessed -Temperature (Juanis-wound Skin No Abnormality No Abnormality Appearance) (Pt Warm) (Pt Warm) -Tenderness on Palpation (Juanis-wound No No Skin Appearance) -Ulcer Cleansing Rinsed/ Rinsed/ Irrigated with Irrigated with Saline Saline -Foul Odor after Cleansing No No -Anesthetic Used 5% Lidocaine 5% Lidocaine Gel Gel Right Calf (cm) 29.4 29 Right Ankle (cm) 18 19.5 Left Calf (cm) 28 Left Ankle (cm) 18 WC - Nurse 2 - General Ulcer CM Notes Start: 06/07/22 09:13 Freq: Status: Active Protocol: Activity Type Activity Date Activity User E-sign Co-sign Detail Recorded Client Recorded Date Recorded By Document 06/07/22 09:38 MW [id number] 06/07/22 09:46 MW Document 06/14/22 09:28 MW [id number] 06/14/22 09:31 MW 06/07/22 06/14/22 09:38 09:28 Wound Center Nurse 2 #1- R GRIER -Time 09:39 09:28 -Correct Patient Yes Yes -Correct Side, Site, Position Yes Yes -Correct Procedure Yes Yes -Procedure Performed Yes Yes -Type of Procedure Debridement Debridement -Clinical Debridement Subcutaneous Subcutaneous -Tissue Removed Subcutaneous Subcutaneous -Post Debridement (cm) - Length 5.5 1.6 -Post Debridement (cm) - Width 3.5 2.8 -Post Debridement (cm) - Depth 0.4 0.5 -Total Square (Post) (cm) 19.25 4.48 -Area of Debridement (cm) - Length 5.5 1.6 -Area of Debridement (cm) - Width 3.5 2.8 -Total Square (Area) (cm) 19.25 4.48 -Tunneling No No -Undermining/Tunneling No No -Circular Undermining No No -Wound/Ulcer Outcome Not Healed Not Healed -Ulcer Cleansing Rinsed/ Rinsed/ Irrigated with Irrigated with Saline Saline -Foul Odor after Cleansing No No -Bioengineered Tissue No No -Bleeding Controlled with Pressure Pressure -Treatment Response Procedure Procedure Tolerated Well Tolerated Well -Offloading No No -Debridement - Subq, 1st 20sq cm Yes Yes Pain Scale: 0-10 Numeric Is Patient Pain Free? Yes Yes WC - Nurse 3 - General Ulcer D/C NN Start: 06/07/22 09:13 Freq: Status: Active Protocol: Activity Type Activity Date Activity User E-sign Co-sign Detail Recorded Client Recorded Date Recorded By Document 06/07/22 09:53 MW [id number] 06/07/22 09:53 MW Document 06/14/22 09:36 MW [id number] 06/14/22 09:37 MW 06/07/22 06/14/22 09:53 09:36 Wound Care Nurse 3 #1- R GRIER -Ulcer Cleansing Rinsed/ Rinsed/ Irrigated with Irrigated with Saline Saline -Foul Odor after Cleansing No No -Negative Pressure Wound Therapy N/A N/A -Primary Dressing Applied Aquacel Extra Mepilex Border, Promogran Geovanna Matter -Aquacel Extra 1 -Mepilex Border 1 -Promogran Geovanna Matter 2 Right -Lotion applied to leg before No compression wrap -Tubular Bandage Single Layer -Size of Tubigrip Used Size D -Size D ($) 1 Treatment Response Procedure Procedure Tolerated Well Tolerated Well Pain Scale: 0-10 Numeric Is Patient Pain Free? Yes Yes Teaching: Wound Center Dressing Your Wound -Person Taught Patient Patient -Teaching Method Discussion Discussion, Demonstration -Response to teaching Verbalize Verbalize understanding understanding WC - Visit Discharge Discharge Condition Stable Stable Ambulatory Status Ambulatory Ambulatory Transportation Private Auto Private Auto Accompanied by self self Medication Reconcilliation completed & No No provided to patient/care provider Clinical Summary of Care Provided Yes Yes Assessment/Plan Assessment/Plan (1) Laceration of leg: CODE(S): S81.819A - Laceration without foreign body, unspecified lower leg, initial encounter PLAN: Wash right leg with antibacterial soap and apply Geovanna to wound base with moistened Adaptic and foam dressing Apply a tight single layer Tubigrip to the right leg follow-up in 1 week (2) Nonhealing nonsurgical wound: CODE(S): T14.8XXA - Other injury of unspecified body region, initial encounter (3) Infected wound: CODE(S): T14.8XXA - Other injury of unspecified body region, initial encounter; L08.9 - Local infection of the skin and subcutaneous tissue, unspecified PLAN: May continue taking antibiotic therapy PCP prescribed
== END 2022-06-17 23:59 | disposition home or self-care (01) ==
LOC: WC 09:15
PROVIDERS: PCP Family Medicine Geriatric Medicine; Visit Provider Nurse Practitioner
DX: L97.812 Non-pressure chronic ulcer of other part of right lower leg with fat layer exposed (principal); G20 Parkinson's disease; T81.33XA Disruption of traumatic injury wound repair, initial encounter; S81.811S Laceration without foreign body, right lower leg, sequela; W19.XXXS Unspecified fall, sequela; Y92.002 Bathroom of unspecified non-institutional (private) residence as the place of occurrence of the external cause; I10 Essential (primary) hypertension; E78.5 Hyperlipidemia, unspecified; Z79.899 Other long term (current) drug therapy
CPT/HCPCS: 11042; 99203; G0463

== ENCOUNTER 2022-07-05 09:30 | Outpatient (RCR) | payer MEDICARE, SELFPAY ==
[2022-06-18 00:39] VITALS: BP 108/66; PULSE 77; RESP 16; TEMP 36.3; BMI 19.8
[2022-06-23 09:32] VITALS: BP 119/79; PULSE 81; RESP 16; TEMP 35.7; BMI 19.8
--- NOTE | 2022-06-23 12:52 | PCM.WC.PN ---
History of Present Illness Date of Service: 06/23/22 Chief Complaint: Follow-up right medial lower leg History of Wound: 87-year-old white female that fell in her bathroom approximately 3 to 4 weeks ago. Lacerated her right leg. Was seen in the emergency room and had suturing done. Dr. Cardenas removed sutures and the wound dehisced. He cultured the wound and found she has staph and has her on doxycycline. She is currently not using anything but a cover dressing. Was told to just rinse it. Subjective Subjective Patient reports she is doing well overall. No issues with dressing changes. She has been cleansing with antibacterial soap, applying Tone covered by adaptic and foam dressing as directed. No significant drainage, foul odor, increasing pain, N/V, F/C. She feels the wound is improving. Objective Data Objective Data Vital Signs: Vital Signs Temp Pulse Resp BP 96.3 F L 81 16 119/79 06/23/22 09:32 06/23/22 09:32 06/23/22 09:32 06/23/22 09:32 Weight: 105 lb Body Mass Index (BMI) 19.8 Charges/Coding Wound Center CF Procedures [id number]: [id number] RMVL DEVITAL TIS 20 CM/< Multi Select Codes Wound Center CF Procedures [id number]: [id number] RMVL DEVITAL TIS 20 CM/< Physical Exam Const oriented x3 General Appearance: cooperative Exam Limitations: no limitations Resp normal respiratory effort and no use of accessory muscles Effort and Inspection: able to speak in complete sentences Cardio regular rate and regular rhythm Rate: regular rate Rhythm: regular rhythm Extremity normal to inspection General Extremity: normal exam except as noted and other findings Other Details: Wound to lateral aspect of left lower leg. Skin no rashes or lesions noted Trauma: laceration Wounds: wounds noted Wound Narrative: Wound to lateral aspect of left lower leg. Appears to be healing well, some slough noted in the wound base. No surrounding erythema, warmth, foul odor, significant drainage. Neuro oriented x3 and CN's II-XII intact bilaterally Gait (Neuro): normal gait Motor Exam: strength 5/5 throughout Psych Appearance: grossly normal Speech: normal speech Thought Content: normal thought content Judgement: judgement good Debridement Note Debridement Note Wound debrided: Right lower leg ulcer from trauma Type of Debridement: Excisional debridement Anesthesia Used: 5% Lidocaine Gel Depth: in the subcutaneous layer Percentage of wound debrided: 100 Instrument Used: 3mm curette Tissue Removed: Slough and fibrin Severity: Fat Layer Exposed Amount of bleeding with debridement: Mild Bleeding Controlled with: Compression and gauze Patient tolerated procedure: Patient tolerated procedure well Post-Debridement Measurements and Additional Note: Post-Debridement Measurements/Treatment HODAN - Nurse 1 - General Ulcer Assessment Start: 06/23/22 09:32 Freq: Status: Active Protocol: DAGO Activity Type Activity Date Activity User E-sign Co-sign Detail Recorded Client Recorded Date Recorded By Document 06/23/22 09:32 YOLANDA [id number] 06/23/22 09:34 YOLANDA 06/23/22 09:32 HODAN - Today's Visit Information Type of service 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 ) Arrival Mode Ambulatory Patient Identification Verified (Name & Yes ) Patient Requires Transmission-Based No Precautions Height and Weight Body Mass Index (BMI) 19.8 BMI Classification Normal Vital Signs Temperature (97.8 F-99.1 F) 96.3 F L Temperature Source Temporal Pulse Rate (60-100) 81 Pulse Location Monitor Respiratory Rate (12-18) 16 Respiratory rate source Observation Blood Pressure (90/60-120/80) 119/79 Blood Pressure Mean (mm Hg) 92 Source Monitor Position Semi-Fowlers Blood Pressure Location Left Arm History Since Last Visit- (Skip if this is Patient's initial visit) Left Footwear Regular Shoe Right Footwear Regular Shoe Pain Scale: 0-10 Numeric Is Patient Pain Free? Yes - Nurse 1 - General Ulcer Measurement Start: 06/23/22 09:32 Freq: Status: Active Protocol: Activity Type Activity Date Activity User E-sign Co-sign Detail Recorded Client Recorded Date Recorded By Document 06/23/22 09:32 YOLANDA [id number] 06/23/22 09:34 YOLANDA 06/23/22 09:32 Wound Center Nurse 1 #1- R ABDALLA -Combined with other wound No -Current Size (cm) - Length 3.5 -Current Size (cm) - Width 1.5 -Current Size (cm) - Depth 0.4 -Total Square Cm 5.25 -Photo Taken Yes -Epithelialization Medium 34-66% -Tunneling No -Undermining/Tunneling No -Circular Undermining No -Exudate Amt Small -Exudate Type Serosanguineous -Wound Margin Flat & Intact -Granulation Amt Medium (34-66%) -Granulation Quality Red -Slough/Fibrin Yes -Necrosis Amt Small (1-33%) -Necrotic Tissue Type Adherent Slough -Structure Exposed N/A -Texture (Juanis-wound Skin Appearance) Assessed, Scarring -Moisture (Juanis-wound Skin Appearance) Assessed,Dry/ Scaly -Color (Juanis-wound Skin Appearance) Assessed -Temperature (Juanis-wound Skin No Abnormality Appearance) (Pt Warm) -Tenderness on Palpation (Juanis-wound No Skin Appearance) -Ulcer Cleansing Rinsed/ Irrigated with Saline -Foul Odor after Cleansing No -Anesthetic Used 4% Lidocaine Solution Lower Limb Edema Present No WC - Nurse 2 - General Ulcer CM Notes Start: 06/23/22 09:32 Freq: Status: Active Protocol: Activity Type Activity Date Activity User E-sign Co-sign Detail Recorded Client Recorded Date Recorded By Document 06/23/22 12:25 PL [id number] 06/23/22 12:26 PL 06/23/22 12:25 Wound Center Nurse 2 #1- R ABDALLA -Time 09:34 -Correct Patient Yes -Correct Side, Site, Position Yes -Correct Procedure Yes -Procedure Performed Yes -Type of Procedure Debridement -Clinical Debridement Subcutaneous -Tissue Removed Subcutaneous -Post Debridement (cm) - Length 1.5 -Post Debridement (cm) - Width 1.8 -Post Debridement (cm) - Depth 0.4 -Total Square (Post) (cm) 2.70 -Area of Debridement (cm) - Length 1.5 -Area of Debridement (cm) - Width 1.8 -Total Square (Area) (cm) 2.70 -Tunneling No -Undermining/Tunneling No -Circular Undermining No -Wound/Ulcer Outcome Not Healed -Ulcer Cleansing Rinsed/ Irrigated with Saline -Foul Odor after Cleansing No -Bioengineered Tissue No -Bleeding Controlled with Pressure -Treatment Response Procedure Tolerated Well -Debridement - Subq, 1st 20sq cm Yes Pain Scale: 0-10 Numeric Is Patient Pain Free? Yes WC - Nurse 3 - General Ulcer D/C NN Start: 06/23/22 09:32 Freq: Status: Active Protocol: Activity Type Activity Date Activity User E-sign Co-sign Detail Recorded Client Recorded Date Recorded By Document 06/23/22 09:49 JF [id number] 06/23/22 09:51 JF 06/23/22 09:49 Wound Care Nurse 3 #1- R ABDALLA -Ulcer Cleansing Rinsed/ Irrigated with Saline -Foul Odor after Cleansing No -Primary Dressing Applied Mepilex Border, NonAdherent Contact Layer, Promogran Tone Matter -Mepilex Border 1 -Promogran Tone Matter 1 Right -Tubular Bandage Single Layer -Size of Tubigrip Used Size C -Size C ($) 1 Pain Scale: 0-10 Numeric Is Patient Pain Free? Yes WC - Visit Discharge Discharge Condition Stable Ambulatory Status Ambulatory Transportation Private Auto Medication Reconcilliation completed & Yes provided to patient/care provider Clinical Summary of Care Provided Yes Assessment/Plan Assessment/Plan (1) Nonhealing nonsurgical wound: CODE(S): T14.8XXA - Other injury of unspecified body region, initial encounter PLAN: Plan Patient usually sees Rhoda Vernon who is on vacation, I saw her this week in the interim. Patient tolerated debridement well. Will continue with current management: wash with antibacterial soap, apply tone, cover with adaptic and foam dressing, single layer tubigrip. No signs of active infection. She will continue with good compression and elevation when at rest. She will return to the [facility] in 1 week. She will return sooner or present to the ED should any signs or symptoms of infection arise.
[2022-06-28 10:02] VITALS: BP 129/63; PULSE 62; TEMP 36.3; BMI 19.8
--- NOTE | 2022-06-28 11:02 | PCM.WC.PN ---
History of Present Illness Date of Service: 06/28/22 Chief Complaint: Follow-up right medial lower leg History of Wound: 87-year-old white female that fell in her bathroom approximately 3 to 4 weeks ago. Lacerated her right leg. Was seen in the emergency room and had suturing done. Dr. Cardenas removed sutures and the wound dehisced. He cultured the wound and found she has staph and has her on doxycycline. She is currently not using anything but a cover dressing. Was told to just rinse it. Progress of Wound: Today the wound measures about half the size it was when she arrived. Still has a lot of depth. But a lot of skin buds in the base of this wound. We will change her up to finish her off with Promogran to close her wound Subjective Subjective Patient states no pain no swelling no redness. Objective Data Objective Data The wound is doing well patient is just getting impatient with having to come in weekly but it looks good should be closed in a couple of weeks Vital Signs: Vital Signs Temp Pulse Resp BP 97.3 F L 62 16 129/63 H 06/28/22 10:02 06/28/22 10:02 06/23/22 09:32 06/28/22 10:02 Weight: 105 lb Body Mass Index (BMI) 19.8 Lab / Micro Data Attestation: I reviewed the patient's lab results. Physical Exam Const oriented x3 General Appearance: cooperative Exam Limitations: no limitations Resp normal respiratory effort and no use of accessory muscles Effort and Inspection: able to speak in complete sentences Cardio regular rate and regular rhythm Rate: regular rate Rhythm: regular rhythm Extremity normal to inspection General Extremity: normal exam except as noted and other findings Other Details: Wound to lateral aspect of left lower leg. Skin no rashes or lesions noted Trauma: laceration Wounds: wounds noted Wound Narrative: Wound to lateral aspect of left lower leg. Appears to be healing well, some slough noted in the wound base. No surrounding erythema, warmth, foul odor, significant drainage. Neuro oriented x3 and CN's II-XII intact bilaterally Gait (Neuro): normal gait Motor Exam: strength 5/5 throughout Psych Appearance: grossly normal Speech: normal speech Thought Content: normal thought content Judgement: judgement good Debridement Note Debridement Note Wound debrided: There fromRight grier trauma Type of Debridement: Excisional debridement Anesthesia Used: 5% Lidocaine Gel Depth: in the subcutaneous layer Percentage of wound debrided: 100 Instrument Used: 5mm curette Tissue Removed: Fibrin and slough Severity: Fat Layer Exposed Amount of bleeding with debridement: Mild Bleeding Controlled with: Compression and gauze Patient tolerated procedure: Patient tolerated procedure well Post-Debridement Measurements and Additional Note: Post-Debridement Measurements/Treatment HODAN Saeed Nurse 1 - General Ulcer Assessment Start: 06/23/22 09:32 Freq: Status: Active Protocol: DAGO Activity Type Activity Date Activity User E-sign Co-sign Detail Recorded Client Recorded Date Recorded By Document 06/23/22 09:32 YOLANDA [id number] 06/23/22 09:34 Document 06/28/22 10:02 JUAN [id number] 06/28/22 10:08 JUAN 06/23/22 06/28/22 09:32 10:02 HODAN - Today's Visit Information Type of service Follow-up Visit Follow-up Visit (Physician/JUDICIAL ADMINISTRATIVE ASSISTANT (Physician/JUDICIAL ADMINISTRATIVE ASSISTANT ) ) Arrival Mode Ambulatory Ambulatory Patient Identification Verified (Name & Yes Yes ) Patient Requires Transmission-Based No No Precautions Safety Precautions NA Height and Weight Body Mass Index (BMI) 19.8 19.8 BMI Classification Normal Normal Vital Signs Temperature (97.8 F-99.1 F) 96.3 F L 97.3 F L Temperature Source Temporal Temporal Pulse Rate (60-100) 81 62 Pulse Location Monitor Monitor Respiratory Rate (12-18) 16 Respiratory rate source Observation Blood Pressure (90/60-120/80) 119/79 129/63 H Blood Pressure Mean (mm Hg) 92 85 Source Monitor Monitor Position Semi-Fowlers Blood Pressure Location Left Arm History Since Last Visit- (Skip if this is Patient's initial visit) Have you changed medications since your No last visit? Any new allergies or adverse reactions No Had a fall/change in ADL's that may No increase risk of falls Signs or symptoms of abuse and/or No neglect since last visit Have you been in the hospital since your No last visit? Has dressing in place as prescribed Yes Has compression in place as prescribed Yes Has offloadiing in place as prescribed N/A Experienced any changes in pain level or No management Left Footwear Regular Shoe Regular Shoe Right Footwear Regular Shoe Regular Shoe Pain Scale: 0-10 Numeric Is Patient Pain Free? Yes Yes HODAN Saeed Nurse 1 - General Ulcer Measurement Start: 06/23/22 09:32 Freq: Status: Active Protocol: Activity Type Activity Date Activity User E-sign Co-sign Detail Recorded Client Recorded Date Recorded By Document 06/23/22 09:32 YOLANDA [id number] 06/23/22 09:34 Document 06/28/22 10:02 JUAN [id number] 06/28/22 10:08 AK 06/23/22 06/28/22 09:32 10:02 Wound Center Nurse 1 #1- R GRIER -Combined with other wound No No -Current Size (cm) - Length 3.5 0.5 -Current Size (cm) - Width 1.5 1.3 -Current Size (cm) - Depth 0.4 0.3 -Total Square Cm 5.25 0.65 -Date of Last Picture (Recall this 06/28/22 field) -Photo Taken Yes Yes -Epithelialization Medium 34-66% -Tunneling No No -Undermining/Tunneling No No -Circular Undermining No No -Change in Wound Grade/Stage No -Exudate Amt Small Large -Exudate Type Serosanguineous Serosanguineous -Wound Margin Flat & Intact Distinct, Outline Attached -Granulation Amt Medium (34-66%) Medium (34-66%) -Granulation Quality Red [place] -Slough/Fibrin Yes Yes -Necrosis Amt Small (1-33%) Medium (34-66%) -Necrotic Tissue Type Adherent Slough Adherent Slough -Structure Exposed N/A N/A -Texture (Juanis-wound Skin Appearance) Assessed, No Abnormality, Scarring Assessed -Moisture (Juanis-wound Skin Appearance) Assessed,Dry/ No Abnormality, Scaly Assessed -Color (Juanis-wound Skin Appearance) Assessed No Abnormality, Assessed -Temperature (Juanis-wound Skin No Abnormality No Abnormality Appearance) (Pt Warm) (Pt Warm) -Tenderness on Palpation (Juanis-wound No No Skin Appearance) -Ulcer Cleansing Rinsed/ Rinsed/ Irrigated with Irrigated with Saline Saline -Foul Odor after Cleansing No No -Anesthetic Used 4% Lidocaine 5% Lidocaine Solution Gel Lower Limb Edema Present No Right Calf (cm) 29 Right Ankle (cm) 17.5 WC - Nurse 2 - General Ulcer CM Notes Start: 06/23/22 09:32 Freq: Status: Active Protocol: Activity Type Activity Date Activity User E-sign Co-sign Detail Recorded Client Recorded Date Recorded By Document 06/23/22 12:25 PL [id number] 06/23/22 12:26 PL Document 06/28/22 10:18 MW [id number] 06/28/22 10:20 MW 06/23/22 06/28/22 12:25 10:18 Wound Center Nurse 2 #1- R GRIER -Time 09:34 10:20 -Correct Patient Yes Yes -Correct Side, Site, Position Yes Yes -Correct Procedure Yes Yes -Procedure Performed Yes Yes -Type of Procedure Debridement Debridement -Clinical Debridement Subcutaneous Subcutaneous -Tissue Removed Subcutaneous Subcutaneous -Post Debridement (cm) - Length 1.5 0.7 -Post Debridement (cm) - Width 1.8 1.5 -Post Debridement (cm) - Depth 0.4 0.3 -Total Square (Post) (cm) 2.70 1.05 -Area of Debridement (cm) - Length 1.5 0.7 -Area of Debridement (cm) - Width 1.8 1.5 -Total Square (Area) (cm) 2.70 1.05 -Tunneling No No -Undermining/Tunneling No No -Circular Undermining No No -Wound/Ulcer Outcome Not Healed Not Healed -Ulcer Cleansing Rinsed/ Rinsed/ Irrigated with Irrigated with Saline Saline -Foul Odor after Cleansing No No -Bioengineered Tissue No No -Bleeding Controlled with Pressure Pressure -Treatment Response Procedure Procedure Tolerated Well Tolerated Well -Offloading No -Debridement - Subq, 1st 20sq cm Yes Yes Pain Scale: 0-10 Numeric Is Patient Pain Free? Yes Yes - Nurse 3 - General Ulcer D/C NN Start: 06/23/22 09:32 Freq: Status: Active Protocol: Activity Type Activity Date Activity User E-sign Co-sign Detail Recorded Client Recorded Date Recorded By Document 06/23/22 09:49 [id number] 06/23/22 09:51 Document 06/28/22 10:29 MW [id number] 06/28/22 10:31 MW 06/23/22 06/28/22 09:49 10:29 Wound Care Nurse 3 #1- R GRIER -Ulcer Cleansing Rinsed/ Rinsed/ Irrigated with Irrigated with Saline Saline -Foul Odor after Cleansing No No -Negative Pressure Wound Therapy N/A -Primary Dressing Applied Mepilex Border, Mepilex Border, NonAdherent NonAdherent Contact Layer, Contact Layer, Promogran Promogran Geovanna Matter -Mepilex Border 1 2 -Promogran 1 -Promogran Geovanna Matter 1 Right -Lotion applied to leg before No compression wrap -Tubular Bandage Single Layer -Size of Tubigrip Used Size C -Size C ($) 1 -Other single later tubigrip Treatment Response Procedure Tolerated Well Pain Scale: 0-10 Numeric Is Patient Pain Free? Yes Yes Teaching: Wound Center Dressing Your Wound -Person Taught Patient -Teaching Method Discussion, Demonstration -Response to teaching Verbalize understanding WC - Visit Discharge Discharge Condition Stable Stable Ambulatory Status Ambulatory Ambulatory Transportation Private Auto Private Auto Accompanied by self Medication Reconcilliation completed & Yes No provided to patient/care provider Clinical Summary of Care Provided Yes Yes Assessment/Plan Assessment/Plan (1) Laceration of leg: CODE(S): S81.819A - Laceration without foreign body, unspecified lower leg, initial encounter (2) Nonhealing nonsurgical wound: CODE(S): T14.8XXA - Other injury of unspecified body region, initial encounter PLAN: Continue to wash right lower leg with antibacterial soap apply Promogran to wound base cover with Adaptic gauze and Ledy with tape Apply Tubigrip to right leg Follow-up in 1 week (3) Infected wound: CODE(S): T14.8XXA - Other injury of unspecified body region, initial encounter; L08.9 - Local infection of the skin and subcutaneous tissue, unspecified
[2022-07-05 09:40] VITALS: BP 90/37; PULSE 54; TEMP 35.8; BMI 19.8
--- NOTE | 2022-07-05 10:16 | PCM.WC.PN ---
History of Present Illness Date of Service: 07/05/22 Chief Complaint: Follow-up right medial lower leg History of Wound: 87-year-old white female that fell in her bathroom approximately 3 to 4 weeks ago. Lacerated her right leg. Was seen in the emergency room and had suturing done. Dr. Cardenas removed sutures and the wound dehisced. He cultured the wound and found she has staph and has her on doxycycline. She is currently not using anything but a cover dressing. Was told to just rinse it. Progress of Wound: Today the wound measures about half the size again from last week. She should be healed in the next week or 2. Still has some depth. But a lot of skin buds in the base of this wound. We will change her up to finish her off with Promogran to close her wound Subjective Subjective Patient is happy with outcomes Objective Data Objective Data Vital Signs: Vital Signs Temp Pulse Resp BP 96.4 F L 54 L 16 90/37 L 07/05/22 09:40 07/05/22 09:40 06/23/22 09:32 07/05/22 09:40 Weight: 105 lb Body Mass Index (BMI) 19.8 Physical Exam Const oriented x3 General Appearance: cooperative Exam Limitations: no limitations Resp normal respiratory effort and no use of accessory muscles Effort and Inspection: able to speak in complete sentences Cardio regular rate and regular rhythm Rate: regular rate Rhythm: regular rhythm Extremity normal to inspection General Extremity: normal exam except as noted and other findings Other Details: Wound to lateral aspect of left lower leg. Skin no rashes or lesions noted Trauma: laceration Wounds: wounds noted Wound Narrative: Wound to lateral aspect of left lower leg. Appears to be healing well, some slough noted in the wound base. No surrounding erythema, warmth, foul odor, significant drainage. Neuro oriented x3 and CN's II-XII intact bilaterally Gait (Neuro): normal gait Motor Exam: strength 5/5 throughout Psych Appearance: grossly normal Speech: normal speech Thought Content: normal thought content Judgement: judgement good Debridement Note Debridement Note Wound debrided: Right lower leg traumatic wound Type of Debridement: Excisional debridement Anesthesia Used: 5% Lidocaine Gel Depth: Down to and including healthy tissue and in the subcutaneous layer Percentage of wound debrided: 100 Instrument Used: 5mm curette Tissue Removed: Fibrin Severity: Fat Layer Exposed Amount of bleeding with debridement: Mild Bleeding Controlled with: Compression and gauze Patient tolerated procedure: Patient tolerated procedure well Post-Debridement Measurements and Additional Note: Post-Debridement Measurements/Treatment - Nurse 1 - General Ulcer Assessment Start: 06/23/22 09:32 Freq: Status: Active Protocol: DAGO Activity Type Activity Date Activity User E-sign Co-sign Detail Recorded Client Recorded Date Recorded By Document 06/23/22 09:32 YOLANDA [id number] 06/23/22 09:34 YOLANDA Document 06/28/22 10:02 AK [id number] 06/28/22 10:08 AK Document 07/05/22 09:40 AK [id number] 07/05/22 09:43 AK 06/23/22 06/28/22 07/05/22 09:32 10:02 09:40 - Today's Visit Information Type of service Follow-up Visit Follow-up Visit Follow-up Visit (Physician/GUEST RELATIONS OFFICER (Physician/GUEST RELATIONS OFFICER (Physician/GUEST RELATIONS OFFICER ) ) ) Arrival Mode Ambulatory Ambulatory Ambulatory Patient Identification Verified (Name & Yes Yes Yes ) Patient Requires Transmission-Based No No Precautions Safety Precautions NA Height and Weight Body Mass Index (BMI) 19.8 19.8 19.8 BMI Classification Normal Normal Normal Vital Signs Temperature (97.8 F-99.1 F) 96.3 F L 97.3 F L 96.4 F L Temperature Source Temporal Temporal Temporal Pulse Rate (60-100) 81 62 54 L Pulse Location Monitor Monitor Monitor Respiratory Rate (12-18) 16 Respiratory rate source Observation Blood Pressure (90/60-120/80) 119/79 129/63 H 90/37 L Blood Pressure Mean (mm Hg) 92 85 54 Source Monitor Monitor Monitor Position Semi-Fowlers Blood Pressure Location Left Arm History Since Last Visit- (Skip if this is Patient's initial visit) Have you changed medications since your No No last visit? Any new allergies or adverse reactions No No Had a fall/change in ADL's that may No No increase risk of falls Signs or symptoms of abuse and/or No No neglect since last visit Have you been in the hospital since your No No last visit? Has dressing in place as prescribed Yes Yes Has compression in place as prescribed Yes Yes Has offloadiing in place as prescribed N/A N/A Experienced any changes in pain level or No No management Left Footwear Regular Shoe Regular Shoe Regular Shoe Right Footwear Regular Shoe Regular Shoe Regular Shoe Pain Scale: 0-10 Numeric Is Patient Pain Free? Yes Yes Yes WC - Nurse 1 - General Ulcer Measurement Start: 06/23/22 09:32 Freq: Status: Active Protocol: Activity Type Activity Date Activity User E-sign Co-sign Detail Recorded Client Recorded Date Recorded By Document 06/23/22 09:32 [id number] 06/23/22 09:34 Document 06/28/22 10:02 NH [id number] 06/28/22 10:08 AK Document 07/05/22 09:40 AK [id number] 07/05/22 09:43 AK 06/23/22 06/28/22 07/05/22 09:32 10:02 09:40 Wound Center Nurse 1 #1- R ABDALLA -Combined with other wound No No No -Current Size (cm) - Length 3.5 0.5 0.3 -Current Size (cm) - Width 1.5 1.3 1 -Current Size (cm) - Depth 0.4 0.3 0.2 -Total Square Cm 5.25 0.65 0.3 -Date of Last Picture (Recall this 06/28/22 07/05/22 field) -Photo Taken Yes Yes Yes -Epithelialization Medium 34-66% -Tunneling No No No -Undermining/Tunneling No No No -Circular Undermining No No No -Change in Wound Grade/Stage No No -Exudate Amt Small Large Medium -Exudate Type Serosanguineous Serosanguineous Serosanguineous -Wound Margin Flat & Intact Distinct, Distinct, Outline Outline Attached Attached -Granulation Amt Medium (34-66%) Medium (34-66%) Medium (34-66%) -Granulation Quality Red [place] -Slough/Fibrin Yes Yes Yes -Necrosis Amt Small (1-33%) Medium (34-66%) Medium (34-66%) -Necrotic Tissue Type Adherent Slough Adherent Slough Adherent Slough -Structure Exposed N/A N/A N/A -Texture (Juanis-wound Skin Appearance) Assessed, No Abnormality, Assessed, Scarring Assessed Scarring -Moisture (Juanis-wound Skin Appearance) Assessed,Dry/ No Abnormality, No Abnormality, Scaly Assessed Assessed -Color (Juanis-wound Skin Appearance) Assessed No Abnormality, No Abnormality, Assessed Assessed -Temperature (Juanis-wound Skin No Abnormality No Abnormality No Abnormality Appearance) (Pt Warm) (Pt Warm) (Pt Warm) -Tenderness on Palpation (Juanis-wound No No No Skin Appearance) -Ulcer Cleansing Rinsed/ Rinsed/ Rinsed/ Irrigated with Irrigated with Irrigated with Saline Saline Saline -Foul Odor after Cleansing No No No -Anesthetic Used 4% Lidocaine 5% Lidocaine 5% Lidocaine Solution Gel Gel Lower Limb Edema Present No Right Calf (cm) 29 29 Right Ankle (cm) 17.5 22 WC - Nurse 2 - General Ulcer CM Notes Start: 06/23/22 09:32 Freq: Status: Active Protocol: Activity Type Activity Date Activity User E-sign Co-sign Detail Recorded Client Recorded Date Recorded By Document 06/23/22 12:25 PL [id number] 06/23/22 12:26 PL Document 06/28/22 10:18 MW [id number] 06/28/22 10:20 MW Document 07/05/22 09:54 MW [id number] 07/05/22 09:56 MW 06/23/22 06/28/22 07/05/22 12:25 10:18 09:54 Wound Center Nurse 2 #1- R ABDALLA -Time 09:34 10:20 09:54 -Correct Patient Yes Yes Yes -Correct Side, Site, Position Yes Yes Yes -Correct Procedure Yes Yes Yes -Procedure Performed Yes Yes -Type of Procedure Debridement Debridement Debridement -Clinical Debridement Subcutaneous Subcutaneous Subcutaneous -Tissue Removed Subcutaneous Subcutaneous Subcutaneous -Post Debridement (cm) - Length 1.5 0.7 0.3 -Post Debridement (cm) - Width 1.8 1.5 1.2 -Post Debridement (cm) - Depth 0.4 0.3 0.2 -Total Square (Post) (cm) 2.70 1.05 0.36 -Area of Debridement (cm) - Length 1.5 0.7 0.3 -Area of Debridement (cm) - Width 1.8 1.5 1.2 -Total Square (Area) (cm) 2.70 1.05 0.36 -Tunneling No No No -Undermining/Tunneling No No No -Circular Undermining No No No -Wound/Ulcer Outcome Not Healed Not Healed Not Healed -Ulcer Cleansing Rinsed/ Rinsed/ Rinsed/ Irrigated with Irrigated with Irrigated with Saline Saline Saline -Foul Odor after Cleansing No No No -Bioengineered Tissue No No No -Bleeding Controlled with Pressure Pressure Pressure -Treatment Response Procedure Procedure Procedure Tolerated Well Tolerated Well Tolerated Well -Offloading No No -Debridement - Subq, 1st 20sq cm Yes Yes Yes Pain Scale: 0-10 Numeric Is Patient Pain Free? Yes Yes Yes - Nurse 3 - General Ulcer D/C NN Start: 06/23/22 09:32 Freq: Status: Active Protocol: Activity Type Activity Date Activity User E-sign Co-sign Detail Recorded Client Recorded Date Recorded By Document 06/23/22 09:49 JF [id number] 06/23/22 09:51 JF Document 06/28/22 10:29 MW [id number] 06/28/22 10:31 MW Document 07/05/22 09:57 AK [id number] 07/05/22 09:58 AK 06/23/22 06/28/22 07/05/22 09:49 10:29 09:57 Wound Care Nurse 3 #1- R ABDALLA -Ulcer Cleansing Rinsed/ Rinsed/ Rinsed/ Irrigated with Irrigated with Irrigated with Saline Saline Saline -Foul Odor after Cleansing No No No -Negative Pressure Wound Therapy N/A N/A -Primary Dressing Applied Mepilex Border, Mepilex Border, Mepilex Border, NonAdherent NonAdherent NonAdherent Contact Layer, Contact Layer, Contact Layer, Promogran Promogran Promogran Geovanna Matter -Mepilex Border 1 2 1 -Promogran 1 1 -Promogran Geovanna Matter 1 Right -Lotion applied to leg before No compression wrap -Tubular Bandage Single Layer Single Layer -Size of Tubigrip Used Size C Size D -Size C ($) 1 -Size D ($) 1 -Other single later tubigrip Treatment Response Procedure Tolerated Well Pain Scale: 0-10 Numeric Is Patient Pain Free? Yes Yes Yes Teaching: Wound Center Dressing Your Wound -Person Taught Patient -Teaching Method Discussion, Demonstration -Response to teaching Verbalize understanding WC - Visit Discharge Discharge Condition Stable Stable Stable Ambulatory Status Ambulatory Ambulatory Ambulatory Transportation Private Auto Private Auto Private Auto Accompanied by self Medication Reconcilliation completed & Yes No Yes provided to patient/care provider Clinical Summary of Care Provided Yes Yes Yes Assessment/Plan Assessment/Plan (1) Laceration of leg: CODE(S): S81.819A - Laceration without foreign body, unspecified lower leg, initial encounter (2) Nonhealing nonsurgical wound: CODE(S): T14.8XXA - Other injury of unspecified body region, initial encounter PLAN: Continue to wash right lower leg with antibacterial soap apply Promogran to wound base cover with Adaptic gauze and Ledy with tape Apply Tubigrip to right leg Follow-up in 1 week (3) Infected wound: CODE(S): T14.8XXA - Other injury of unspecified body region, initial encounter; L08.9 - Local infection of the skin and subcutaneous tissue, unspecified
== END 2022-07-18 23:59 | disposition home or self-care (01) ==
LOC: WC 09:30
PROVIDERS: PCP Family Medicine Geriatric Medicine; Visit Provider Nurse Practitioner
DX: T81.33XA Disruption of traumatic injury wound repair, initial encounter (principal); L97.912 Non-pressure chronic ulcer of unspecified part of right lower leg with fat layer exposed; S81.8 Open wound of lower leg; W19.XXXS Unspecified fall, sequela
CPT/HCPCS: 11042; 99213; G0463

== ENCOUNTER 2022-07-19 09:45 | Outpatient (RCR) | payer MEDICARE, SELFPAY ==
[2022-07-19 00:37] VITALS: BP 90/37; PULSE 54; RESP 16; TEMP 35.8; BMI 19.8
[2022-07-19 09:48] VITALS: RESP 16; TEMP 35.7; BMI 19.8
--- NOTE | 2022-07-19 12:11 | PCM.WC.PN ---
History of Present Illness Date of Service: 07/19/22 Chief Complaint: Follow-up right medial lower leg History of Wound: 87-year-old white female that fell in her bathroom approximately 3 to 4 weeks ago. Lacerated her right leg. Was seen in the emergency room and had suturing done. Dr. Cardenas removed sutures and the wound dehisced. He cultured the wound and found she has staph and has her on doxycycline. She is currently not using anything but a cover dressing. Was told to just rinse it. Progress of Wound: Wound resolvable patient will be discharged from the wound center Subjective Subjective Patient is very happy with outcome Objective Data Objective Data Wound is healed patient will be discharged and may follow-up as needed Vital Signs: Vital Signs Temp Pulse Resp BP O2 Del Method 96.2 F L 54 L 16 90/37 L Room Air 07/19/22 09:48 07/19/22 00:37 07/19/22 09:48 07/19/22 00:37 07/19/22 09:48 Oxygen Delivery Method Room Air Weight: 105 lb Body Mass Index (BMI) 19.8 Physical Exam Const oriented x3 General Appearance: cooperative Exam Limitations: no limitations Resp normal respiratory effort and no use of accessory muscles Effort and Inspection: able to speak in complete sentences Cardio regular rate and regular rhythm Rate: regular rate Rhythm: regular rhythm Extremity normal to inspection General Extremity: normal exam except as noted and other findings Other Details: Wound to lateral aspect of left lower leg. Skin no rashes or lesions noted Trauma: laceration Wounds: wounds noted Wound Narrative: Wound to lateral aspect of left lower leg. Appears to be healing well, some slough noted in the wound base. No surrounding erythema, warmth, foul odor, significant drainage. Neuro oriented x3 and CN's II-XII intact bilaterally Gait (Neuro): normal gait Motor Exam: strength 5/5 throughout Psych Appearance: grossly normal Speech: normal speech Thought Content: normal thought content Judgement: judgement good Debridement Note Debridement Note No debridement was completed: No debridement was completed today Post-Debridement Measurements and Additional Note: Post-Debridement Measurements/Treatment HODAN - Nurse 1 - General Ulcer Assessment Start: 07/19/22 09:47 Freq: Status: Active Protocol: DAGO Activity Type Activity Date Activity User E-sign Co-sign Detail Recorded Client Recorded Date Recorded By Document 07/19/22 09:48 [facility] [id number] 07/19/22 09:55 [facility] 07/19/22 09:48 - Today's Visit Information Type of service Follow-up Visit (Physician/BRICK TENDER ) Arrival Mode Ambulatory Transfer Assistance None Patient Identification Verified (Name & Yes ) Patient Requires Transmission-Based No Precautions Height and Weight Body Mass Index (BMI) 19.8 BMI Classification Normal Vital Signs Temperature (97.8 F-99.1 F) 96.2 F L Temperature Source Temporal Pulse Location Monitor Respiratory Rate (12-18) 16 Respiratory rate source Observation Oxygen Delivery Method Room Air Source Monitor Position Sitting Blood Pressure Location Left Arm History Since Last Visit- (Skip if this is Patient's initial visit) Have you changed medications since your No last visit? Any new allergies or adverse reactions No Had a fall/change in ADL's that may No increase risk of falls Signs or symptoms of abuse and/or No neglect since last visit Have you been in the hospital since your No last visit? Has dressing in place as prescribed Yes Has compression in place as prescribed Yes Has offloadiing in place as prescribed N/A Experienced any changes in pain level or No management Left Footwear Regular Shoe Right Footwear Regular Shoe Pain Scale: 0-10 Numeric Is Patient Pain Free? Yes - Nurse 1 - General Ulcer Measurement Start: 07/19/22 09:47 Freq: Status: Active Protocol: Activity Type Activity Date Activity User E-sign Co-sign Detail Recorded Client Recorded Date Recorded By Document 07/19/22 09:48 [facility] [id number] 07/19/22 09:55 [facility] 07/19/22 09:48 Wound Center Nurse 1 #1- R ABDALLA -Combined with other wound No -Current Size (cm) - Length 1.2 -Current Size (cm) - Width 0.5 -Current Size (cm) - Depth 0.1 -Total Square Cm 0.60 -Date of Last Picture (Recall this 07/19/22 field) -Photo Taken Yes -Epithelialization Medium 34-66% -Tunneling No -Undermining/Tunneling No -Circular Undermining No -Exudate Amt Small -Exudate Type Serosanguineous -Wound Margin Distinct, Outline Attached -Granulation Amt Large (67-100%) -Granulation Quality Red -Slough/Fibrin Yes -Necrosis Amt Small (1-33%) -Necrotic Tissue Type Adherent Slough -Texture (Juanis-wound Skin Appearance) Assessed, Scarring -Moisture (Juanis-wound Skin Appearance) Assessed,Dry/ Scaly -Color (Juanis-wound Skin Appearance) Assessed -Temperature (Juanis-wound Skin No Abnormality Appearance) (Pt Warm) -Tenderness on Palpation (Juanis-wound No Skin Appearance) -Ulcer Cleansing Rinsed/ Irrigated with Saline -Foul Odor after Cleansing No -Anesthetic Used 5% Lidocaine Gel Right Calf (cm) 29.5 Right Ankle (cm) 17.8 - Nurse 2 - General Ulcer CM Notes Start: 07/19/22 09:47 Freq: Status: Active Protocol: Activity Type Activity Date Activity User E-sign Co-sign Detail Recorded Client Recorded Date Recorded By Document 07/19/22 10:03 MW [id number] 07/19/22 10:05 MW 07/19/22 10:03 Wound Center Nurse 2 #1- R ABDALLA -Time 10:03 -Correct Patient Yes -Correct Side, Site, Position Yes -Correct Procedure Yes -Procedure Performed No -Post Debridement (cm) - Length 0 -Post Debridement (cm) - Width 0 -Post Debridement (cm) - Depth 0 -Total Square (Post) (cm) 0 -Wound/Ulcer Outcome Healed- Epithelialized -Ulcer Cleansing Rinsed/ Irrigated with Saline -Foul Odor after Cleansing No -Bioengineered Tissue No -Bleeding Controlled with NA -Offloading No Pain Scale: 0-10 Numeric Is Patient Pain Free? Yes - Nurse 3 - General Ulcer D/C NN Start: 07/19/22 09:47 Freq: Status: Active Protocol: Activity Type Activity Date Activity User E-sign Co-sign Detail Recorded Client Recorded Date Recorded By Document 07/19/22 10:05 MW [id number] 07/19/22 10:06 MW 07/19/22 10:05 Wound Care Center Nurse 3 #1- R ABDALLA -Ulcer Cleansing Rinsed/ Irrigated with Saline -Foul Odor after Cleansing No -Negative Pressure Wound Therapy N/A -Primary Dressing Applied NonAdherent Contact Layer, Promogran Geovanna Matter, Mepilex Border -Mepilex Border 1 -Promogran Geovanna Matter 1 Right -Lotion applied to leg before No compression wrap -Stockings Yes Treatment Response Procedure Tolerated Well Pain Scale: 0-10 Numeric Is Patient Pain Free? Yes Teaching: Wound Center Dressing Your Wound -Person Taught Patient -Teaching Method Discussion -Response to teaching Verbalize understanding WC - Visit Discharge Discharge Condition Stable Ambulatory Status Ambulatory Transportation Private Auto Accompanied by self Medication Reconcilliation completed & No provided to patient/care provider Clinical Summary of Care Provided Yes Assessment/Plan Assessment/Plan (1) Laceration of leg: CODE(S): S81.819A - Laceration without foreign body, unspecified lower leg, initial encounter (2) Nonhealing nonsurgical wound: CODE(S): T14.8XXA - Other injury of unspecified body region, initial encounter PLAN: Discharge from the wound center follow-up as needed (3) Infected wound: CODE(S): T14.8XXA - Other injury of unspecified body region, initial encounter; L08.9 - Local infection of the skin and subcutaneous tissue, unspecified
== END 2022-07-20 15:39 | disposition home or self-care (01) ==
LOC: WC 09:45
PROVIDERS: PCP Family Medicine Geriatric Medicine; Visit Provider Nurse Practitioner
DX: Z09 Encounter for follow-up examination after completed treatment for conditions other than malignant neoplasm (principal)
CPT/HCPCS: 99213; G0463

== ENCOUNTER → 2022-08-29 | Outpatient (CLI) | payer MEDICARE, SELFPAY ==
[2022-08-29 18:10] LABS: Absolute Lymphocyte Count 7.48 X10^3/uL (0.83-4.51); Absolute Neutrophil Count 4.9 X10^3/uL (2.0-7.7); Basophil# 0.41 X10^3/uL; Basophil% 2.8 % (0-1); Eosinophils% 2.7 % (0-5); Hemoglobin 13.1 g/dL (12.0-15.0); Lymphocyte # 7.48 X10^3/ul (0.83-4.51); Lymphocyte % 50.9 % (19-41); Mean Corpuscular Hgb 30.5 pg (27.0-32.0); Mean Corpuscular Volume 95.3 fL (81-99); Mean Platelet Vol. 10.3 fl (6.2-12.0); Monocyte# 1.44 X10^3/uL; Monocyte% 9.8 % (0-10); NRBC Flagged by Analyzer 0 % (0-5); Neutrophil # 4.94 X10^3/uL (2.7-7.7); Neutrophil % 33.6 % (47-70); POSITIVE DIFFERENTIAL YES; POSITIVE MORPHOLOGY YES; Platelet Count 380 K/mm3 (150-450); RBC Distribution Width CV 13.5 % (11.6-14.6); RBC Distribution Width SD 47.4 fl (35.1-43.9); White Blood Count 14.7 K/mm3 (4.4-11.0)
[2022-08-29 18:18] LABS: Differential Indicated SCAN CRITERIA MET
[2022-08-29 18:46] LABS: AST(SGOT) 34 U/L (15-37); Alanine Aminotransfer ALT/SGPT 17 U/L (13-56); Albumin, Serum 3.6 g/dL (3.2-5.0); Alkaline Phosphatase 91 U/L (45-117); Anion Gap 7 (5-15); BUN 21 mg/dL (7-18); BUN/Creat Ratio 17.8 RATIO (10-20); Chloride 104 mmol/L (98-107); Creatinine, Serum 1.18 mg/dL (0.55-1.02); EST Glomerular Filtration Rate 46 mL/min (>60); Est Glom Filt Rate - Afr Amer 56 mL/min (>60); Globulin 3.6 g/dL (2.2-4.2); Glucose 94 mg/dL (74-106); Phosphorus 3.9 mg/dL (2.5-4.9); Protein, Total 7.2 g/dL (6.4-8.2); Sodium Level 140 mmol/L (136-145); Thyroid Stim Hormone (TSH) 3.01 uIU/mL (0.358-3.74)
[2022-08-29 18:50] LABS: Differential Comment SCANNED
== END | disposition home or self-care (01) ==
LOC: POLAB3 14:00
PROVIDERS: PCP Family Medicine Geriatric Medicine; Visit Provider Internal Medicine Nephrology
DX: E55.9 Vitamin D deficiency, unspecified (principal); N18.32 Chronic kidney disease, stage 3b; R53.83 Other fatigue
CPT/HCPCS: 36415; 80053; 82306; 84100; 84443; 85025

== ENCOUNTER → 2022-08-30 | Outpatient (CLI) | payer MEDICARE, SELFPAY | END | disposition home or self-care (01) | LOC: LAB 09:58 | PROVIDERS: PCP Family Medicine Geriatric Medicine; Visit Provider Ophthalmology | DX: Z00.00 Encounter for general adult medical examination without abnormal findings (principal) | CPT/HCPCS: 36415 ==

== ENCOUNTER 2022-09-19 13:00 | Outpatient (RCR) | payer MEDICARE, SELFPAY ==
--- NOTE | 2022-08-03 14:10 | HP.PTEVAL ---
Patient's Visit Information ADDIS CARRENO is a 87 year old F referred to Physical Therapy by SRIDEVI SOLO with a diagnosis of Parkinson's disease G20; Abnormality of gait, R26.9. Date of Evaluation: 08/03/22 Physical Therapist: Osiel Melendrez - Visit Plan Frequency: 2x /Week Duration: 4 Weeks Plan: Continue with improving LE strength especially hip strength and balance. May also incorporate some BIG principles as well. - Subjective Pt. is a 87 y.o. female who was diagnosed with Parkinson's disease about 10 years ago and reports the last year her balance has gotten worse. She reports that she has had a couple of falls in her home in the last year. Pt. does not use an assistive device. Pt. denies any recent change in her vision but does have glasses. She denies any numbness or tingling in her legs. She has difficulty with walking on uneven ground, walking for long distances, squatting, ascending/descending stairs, and housework. 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 Her goal with physical therapy is to improve her balance. She has had previous physical therapy for her balance. Pt. denies any pain. Her PMH includes open heart surgery, non-Hodgkin's lymphoma, Parkinson's disease, spleen removed, right hand surgery, and gall bladder removed. Pt. lives alone in a condo with one step to enter. Her hobbies include working out, playing cards, reading, and watching tv. - Objective Posture- Thoracic kyphotic posture in sitting and standing. Hip PROM- WNL bilaterally. Left strength hip flexion [4+/5], abduction [4+/5], adduction [4+/5], extension [4+/5], knee flexion [5/5], knee extension [5/5], ankle DF [5/5], ankle PF [5/5]. Right strength hip flexion [4+/5], abduction [4+/5], adduction [4+/5], extension [4+/5], knee flexion [5/5], knee extension [5/5], ankle DF [5/5], PF [5/5]. Tandem stance right [22 secs], left [11 secs]. SLS right [30 secs], left [9 secs]. 30 sec sit to stand- 15 times with no arm assist. TUG- 8 secs. Gait- Pt. ambulates with no gait deviations. - Balance/Special Test Scores Lower Extremity Functional Score: 52 - Goals Goal 1:: Pt. will report no falls. Goal Time Frame: 4-6 Weeks Goal 2:: Pt. will be able to walk at least 20 minutes with no rest break to improve endurance. Goal Time Frame: 4-6 Weeks Goal 3:: Pt. will improve tandem stance > 30 secs in order to improve stability and balance. Goal Time Frame: 4-6 Weeks Goal 4:: Pt. will be able to complete at least 16 sit to stands in 30 secs in order to improve mobility. Goal Time Frame: 4-6 Weeks Goal 5:: Pt. will be able to complete TUG < 8 secs in order to improve mobility. Goal Time Frame: 4-6 Weeks Goal 6:: Pt. will improve LEFS score <35% disability in order to improve mobility. Goal Time Frame: 4-6 Weeks - Rehabilitation Potential Physical Therapy Diagnosis: Decreased LE strength and balance Rehabilitation Potential: Good - Anticipated Interventions Patient/Client Instruction: Educate patient on: Condition, Plan of Care, Benefits of Fitness Program For the Purpose of:: To improve ability to perform ADL's, To improve performance and independence with ADL's, To improve balance, To assume or resume ADL's, To improve tolerance to ADL's Therapeutic Exercise to Include: Strength training, Endurance training, Balance training, Gait and locomotor training Comment: Focus on improving LE strength especially hip strengthening and balance exercises. For the Purpose of:: To improve ability to perform ADL's, To improve performance and independence with ADL's, To improve balance, To assume or resume ADL's, To improve tolerance to ADL's Functional Training to Include: Gait training For the Purpose of:: To improve ability to perform ADL's, To improve performance and independence with ADL's, To improve safety with gait, To assume or resume ADL's, To improve tolerance to ADL's Thank you for the opportunity to evaluate your patient. For Medicare and Medicare HMO plans, please review the plan of care and approve it. It will need to be FAXED BACK to us at [phone] for Medicare purposes. For Medicare only, by signing this I certify the plan of care. Please let me know if there are questions or concerns regarding this plan of care. Physician Signature: Date:
--- NOTE | 2022-08-29 10:41 | HP.PTREVAL_ITS ---
SRIDEVI SOLO, It has been my pleasure to treat ADDIS CARRENO over the last 7 visits for Parkinson's disease G20; Abnormality of gait, R26.9. Please see the progress note below for an update on the physical therapy plan of care! Subjective: Pt has fallen 2-3X in the last year. She is concerned about her balance. If she turns to quick she will stumble. She still works out in the gym - doing leg exercises/arms and ride the bike for 1/2 hour. She was diagnosed 10 years ago with PD. She is still driving. She lives alone. Her neck is stiff a lot. Pt does [place] on Sunday and . Objective/Function: FGA:17. sit to stand: X 18. TU,89 sec. sit to stand X 18 in 20 seconds with no hands. Standing opp arm and leg... some lob but good recip motion (ppt likes to cross her feet across midline and tends to catch her feet together. Gait: walks with decrease heel to toe pattern and crosses midline especially with the R foot with gait (to the point that she did trip at least twice during the session). Stairs: up and down recip with a hand rail but each step she crosses mid line. Posture: FW head and rounded shoulders and increse PPT. Plan Plan: two additional vists for 60 min for HEP/gym routine for postural exercises (extension), gait training to avoid scissoring, turning with head turns, X's for opp arm and leg, and to give I Program Balance/Gait/Functional tests - Balance/Special Test Scores Functional Gait Assessment Score: 17 % Disability: 43.3400 Lower Extremity Functional Score: 54 Goals Goal 1:: Pt. will report no falls. Goal Time Frame: 4-6 Weeks Goal Progress: Goal Met Goal 2:: Pt. will be able to walk at least 20 minutes with no rest break to improve endurance. Goal Time Frame: 4-6 Weeks Goal Progress: Progressing Goal 3:: Pt. will improve tandem stance > 30 secs in order to improve stability and balance. Goal Time Frame: 4-6 Weeks Goal 4:: Pt. will be able to complete at least 16 sit to stands in 30 secs in order to improve mobility. Goal Time Frame: 4-6 Weeks Goal Progress: Goal Met Goal 5:: Pt. will be able to complete TUG < 8 secs in order to improve mobility. Goal Time Frame: 4-6 Weeks Goal Progress: Goal Met Goal 6:: Walk without scissoring Goal Time Frame: 4-6 Weeks Anticipated Interventions Patient/Client Instruction: Educate patient on: Condition, Plan of Care, Benefits of Fitness Program For the Purpose of:: To improve ability to perform ADL's, To improve performance and independence with ADL's, To improve balance, To assume or resume ADL's, To improve tolerance to ADL's Therapeutic Exercise to Include: Strength training, Endurance training, Balance training, Gait and locomotor training Comment: Focus on improving LE strength especially hip strengthening and balance exercises. For the Purpose of:: To improve ability to perform ADL's, To improve performance and independence with ADL's, To improve balance, To assume or resume ADL's, To improve tolerance to ADL's Functional Training to Include: Gait training For the Purpose of:: To improve ability to perform ADL's, To improve performance and independence with ADL's, To improve safety with gait, To assume or resume ADL's, To improve tolerance to ADL's Please do not hesitate to contact me at [phone] by phone or if you have questions or concerns regarding this new plan of care! Sincerely, ROCHELLE Palafox
--- NOTE | 2022-09-19 13:42 | HP.PTDCSUM ---
It has been my pleasure to treat ADDIS CARRENO referred by SRIDEVI SOLO, with the diagnosis of Parkinson's disease G20; Abnormality of gait, R26.9 for a total of 9 visit(s). Discharge Date: 09/19/22 Please see the following information for a summary of their discharge status. Subjective: Pt reports that she is stretching at least once a day and the wall T. W and Y stretch is hard for her. She has some hip pain today on the L and does not know why. She did not fall or anything. She has a back ache which is normal for her. She has been doing the opp arm and leg. L hip pain Pain Intensity (Out of 10): 5 % Improvement: 50 Objective/Function: Pt did well with the above exercises. She had very little scissoring Goal 1:: Pt. will report no falls. Goal Progress: Goal Met Goal 2:: Pt. will be able to walk at least 20 minutes with no rest break to improve endurance. Goal Progress: Progressing Goal 3:: Pt. will improve tandem stance > 30 secs in order to improve stability and balance. Goal Progress: Goal Met Goal 4:: Pt. will be able to complete at least 16 sit to stands in 30 secs in order to improve mobility. Goal Progress: Goal Met Goal 5:: Pt. will be able to complete TUG < 8 secs in order to improve mobility. Goal Progress: Goal Met Goal 6:: Walk without scissoring Goal Progress: Progressing Plan: DC PT to I gym routine Discharge Comments: DC PT to I program If there are questions or concerns regarding this patient's physical therapy, please feel free to call me at [phone]. Thank you for the referral of this patient. Sincerely, Marbella Doss, MPT Balance/Gait/Functional tests - Balance/Special Test Scores Functional Gait Assessment Score: 17 % Disability: 43.3400 Lower Extremity Functional Score: 57
== END 2022-09-19 19:00 | disposition home or self-care (01) ==
LOC: PT 13:00
PROVIDERS: PCP Family Medicine Geriatric Medicine
DX: G20 Parkinson's disease (principal); R26.9 Unspecified abnormalities of gait and mobility
CPT/HCPCS: 97110; 97116; 97161

== ENCOUNTER → 2022-10-20 | Outpatient (CLI) | payer MEDICARE, SELFPAY ==
--- NOTE | 2022-10-20 12:22 | RAD_ITS ---
INDICATION: Left hip pain. EXAMINATION/TECHNIQUE: X-RAY - LEFT XR Hip Unilateral with Pelvis when performed; 2-3 Views. 3 views. COMPARISON: March 06, 2022 left hip x-rays. FINDINGS: SOFT TISSUES: No soft tissue swelling or gas. No radiopaque foreign body. Arterial vascular calcifications. Phleboliths in the pelvis. BONES/JOINTS: No acute fracture or subluxation. Normal alignment. Symmetric appearance of the hip and sacroiliac joints, mild degenerative change. No sclerotic or destructive changes observed. Lower lumbar spondylosis changes. RAD/HIP, UNI W/ Pelvis 2-3 Views IMPRESSION: No acute osseous injury. Electronically Signed: Bart Richardson MD at 23:58 EDT ,
--- NOTE | 2022-10-20 12:24 | RAD_ITS ---
INDICATION: Right ankle pain. EXAMINATION/TECHNIQUE: X-RAY - RIGHT XR Ankle Min 3 Views. 3 views. COMPARISON: None. FINDINGS: SOFT TISSUES: No lateral malleolar soft tissue swelling No radiopaque foreign body. Arterial vascular calcifications. BONES/JOINTS: Osteopenia. No acute fracture or subluxation. Normal alignment. Preservation of the joint spaces. No sclerotic or destructive changes observed. RAD/Ankle min 3 Views IMPRESSION: No acute osseous injury. Electronically Signed: Bart Richardson MD at 18:41 EDT ,
== END | disposition home or self-care (01) ==
LOC: RAD 12:20
PROVIDERS: PCP Family Medicine Geriatric Medicine; Referring Provider Family Medicine Geriatric Medicine; Visit Provider Family Medicine Geriatric Medicine
DX: M25.571 Pain in right ankle and joints of right foot (principal); M25.552 Pain in left hip
CPT/HCPCS: 73502; 73610

== ENCOUNTER → 2022-11-29 | Outpatient (CLI) | payer MEDICARE, SELFPAY | END | disposition home or self-care (01) | LOC: PSN 08:09 | PROVIDERS: PCP Family Medicine Geriatric Medicine; Referring Provider Psychiatry & Neurology Neurology; Visit Provider Psychiatry & Neurology Neurology | DX: K14.8 Other diseases of tongue (principal) | CPT/HCPCS: 95819 ==

== ENCOUNTER → 2022-12-08 | Outpatient (CLI) | payer MEDICARE, SELFPAY | END | disposition home or self-care (01) | LOC: PSN 12:08 | PROVIDERS: PCP Family Medicine Geriatric Medicine; Referring Provider Family Medicine Geriatric Medicine; Visit Provider Family Medicine Geriatric Medicine | DX: R68.83 Chills (without fever) (principal) | CPT/HCPCS: 87635; 87804; 87807 ==

== ENCOUNTER 2023-01-15 10:50 | Observation (INO) | payer MEDICARE, SELFPAY ==
[2023-01-15] VITALS (15 sets, daily range): BP systolic 113–155; BP diastolic 56–97; PULSE 53–100; RESP 14–21; TEMP 35.9–36.7; O2SAT 93–99; BMI 19.0; BMI 18.3
--- NOTE | 2023-01-15 10:52 | EKG12_ITS ---
Test Reason : STROKE ALERT Blood Pressure : / mmHG Vent. Rate : 070 BPM Atrial Rate : 070 BPM P-R Int : 152 ms QRS Dur : 088 ms QT Int : 390 ms P-R-T Axes : 068 084 040 degrees QTc Int : 421 ms Sinus rhythm with Premature supraventricular complexes Otherwise normal ECG Confirmed by REY MASON, DARIO ([id number]), index editor LILIAN VILLEGAS ([id number]) on 01/16/2023 10:59:52 AM Referred By: JI/ENMANUEL Confirmed By:DARIO LE MD
--- NOTE | 2023-01-15 10:52 | CT_ITS ---
STUDY: CT HEAD STROKE PROTOCOL W/O CONTRAST INJECTION REASON FOR EXAM: Female, 87 years old. Neuro deficit, acute, stroke suspected RADIATION DOSAGE (If Supplied By Facility): CTDIvol = ( 44.99 ) mGy, DLP = ( 745.40 ) mGycm TECHNIQUE: Transaxial CT imaging of the brain was performed without administration of intravenous contrast material. Individualized dose optimization techniques were used for this CT. COMPARISON: Comparison is made with prior study dated June 17, 2019. FINDINGS: Normal soft tissue structures. Normal calvarium. There is mild cerebral atrophy with widening of the extra-axial spaces and ventricular dilatation. There are areas of decreased attenuation within the white matter tracts of the supratentorial brain, consistent with microvascular disease changes. There are small punctate calcifications of the basal ganglia which are seen in the aging brain as a normal variant. Normal brainstem. Normal cerebellum. There is no intracranial hemorrhage. There are no findings of an acute ischemic infarction. Normal visualized paranasal sinuses. ASPECT score: 10 CT/STROKE Brain/Head without Cont IMPRESSION: Chronic involutional changes of the brain. N.B. : The above Results were Read Back by Olivier Maradiaga MD to Dr Tequila DO, and understanding confirmed on 01/15/2023 11:04:40 (ET). Electronically Signed: Olivier Maradiaga MD at 11:06 EDT ,
--- NOTE | 2023-01-15 10:58 | CT_ITS ---
STUDY: CTA HEAD AND NECK WITH CONTRAST REASON FOR EXAM: Female, 87 years old. cva RADIATION DOSAGE (If Supplied By Facility): CTDIvol = ( 12.29 ) mGy, DLP = ( 408.27 ) mGycm TECHNIQUE: CT angiography was performed with a multi-detector CT scanner. Data acquisition was obtained from the skull base through the vertex following intravenous administration of IV 100mL Isovue-370. MIP images were reconstructed from the axial data set. Post-processing of the angiographic images was performed, with multiplanar reformation and 3D reconstruction. Individualized dose optimization techniques were used for this CT. COMPARISON: Head CT dated January 15, 2023 FINDINGS: Normal bilateral petrous carotid arteries. There is calcified plaque formation of the right cavernous carotid artery, with a mild stenosis (less than 50%). There is calcified plaque formation of the left cavernous carotid artery, with a mild stenosis (less than 50%). Normal right A1 segments of the anterior cerebral artery. Normal left A1 segments of the anterior cerebral artery. Normal intact anterior communicating artery (ACOM). Normal bilateral A2 segments of the anterior cerebral arteries. Normal right M1 and M2 segments of the middle cerebral arteries, with a normal M1 bifurcation. Normal left M1 and M2 segments of the middle cerebral arteries, with a normal M1 bifurcation. Normal right posterior communicating artery (PCOM). Normal left posterior communicating artery (PCOM). Normal bilateral vertebral arteries. Normal basilar artery with a normal basilar bifurcation. The visualized bilateral superior cerebellar (SCA) arteries are normal. Normal bilateral P1, P2 and visualized P3 segments of the posterior cerebral arteries. There is no demonstrated aneurysm of the [place]. There is no demonstrated abnormality of the visualized brain. AORTIC ARCH: There is atherosclerotic calcific plaque formation of the aortic arch and great vessels arising from the aortic arch, without a hemodynamically significant stenosis. There is a normal origin of the brachiocephalic, left common carotid, and left subclavian arteries. Normal origins of the brachiocephalic and left common carotid arteries. Mild atherosclerotic plaque and narrowing at the origin of the left subclavian artery. Median sternotomy wires are present. RIGHT CAROTID ARTERIES: Normal right common carotid artery (CCA). There is mild atherosclerotic plaque formation with minimal narrowing of the right carotid bulb. There is mild atherosclerotic plaque formation of the origin of the right internal carotid artery with less than 50% cross sectional diameter stenosis. Normal visualized cervical portion of the right internal carotid artery. Normal origin of the right external carotid artery (ECA). LEFT CAROTID ARTERIES: Normal left common carotid artery (CCA). Normal left common carotid bulb. Normal origin of the left internal carotid (ICA) artery without a hemodynamically significant stenosis. Normal visualized cervical portion of the left internal carotid artery. There is mild atherosclerotic plaque formation of the origin of the left external carotid artery with less than 50% cross sectional diameter stenosis. VERTEBRAL ARTERIES: Normal bilateral vertebral arteries. CT/CTA Head AND Neck W/ Contrast IMPRESSION: 1. No demonstrated intra-arterial thrombus or occlusion of the major arteries of the [place] or demonstrated aneurysm or hemodynamically significant stenosis. 2. Mild atherosclerotic plaque right carotid bulb and internal carotid artery. N.B. : The above Results were Read Back by Wilmer Infante MD to Stephanie Gonzalez DO, and understanding confirmed on 01/15/2023 11:54:24 (ET). Electronically Signed: Wilmer Infante MD at 11:55 EDT ,
--- NOTE | 2023-01-15 10:59 | ED.VIS.STROK ---
HPI History of Present Illness Chief Complaint: Stroke Alert Detail of Chief Complaint: Concern for stroke Informant: patient and EMS Narrative Narrative: Patient presents with concern for possible stroke. Patient apparently had gotten out of her vehicle and passed out. She was found on the ground initially mostly unresponsive and slurred speech. Patient now complaining of a headache. Per EMS her speech is improved and now and she is moving all extremities. She has a history of Parkinson's. Apparently she is not anticoagulated. Patient denies recent illness. Currently she describes a mild headache. She denies neck pain. She denies chest pain or abdominal pain. [facility] History Acute bronchitis, unspecified Acute sinusitis, unspecified Contact with and (suspected) exposure to other viral communicable diseases Essential hypertension History of atrial myxoma Hyperlipidemia Hypertension Lymphoma Nonrheumatic mitral (valve) prolapse Nonrheumatic mitral valve regurgitation Nonrheumatic tricuspid valve regurgitation Parkinsons disease Parotid tumor Premature atrial contractions Premature ventricular contraction Home Medications ascorbic acid (vitamin C) 500 mg capsule 1,000 mg PO QDAY 12/31/17 [History Last Taken Unknown] multivitamin 1 tab PO DAILY 11/20/18 [History Last Taken Unknown] psyllium husk 3.4 gram/5.4 gram oral powder (Metamucil) 1 tsp PO DAILY PRN Constipation 11/23/21 [History Last Taken Unknown] metoprolol tartrate 25 mg tablet See Rx Instructions .Route .COMPLEX #90 tabs 09/20/22 [Rx Last Taken Unknown] carbidopa 25 mg-levodopa 100 mg tablet 2 tab PO TID 01/05/23 [History Last Taken Unknown] albuterol sulfate 90 mcg/actuation aerosol inhaler inhalation 01/15/23 [History Last Taken Unknown] Allergy/AdvReac Type Severity Reaction Status Date / Time Penicillins Allergy Rash Verified 01/05/23 16:11 tramadol AdvReac Other Verified 01/05/23 16:11 Surgical History History of laparoscopic cholecystectomy History of splenectomy Social History Smoking Status: Never smoker alcohol intake: current details: occasional substance use type: does not use ROS ROS ED Review of Systems ROS Unobtainable: other Constitutional Constitutional ED: Reports lethargy; Denies chills, fever(s), sweats or weight loss Eyes Eyes: Denies blurry vision, change in vision or diplopia ENT ENT ED: Denies rhinorrhea or sore throat Cardiovascular Cardiovascular: Denies chest pain, orthopnea or racing heartbeat Respiratory/Chest Respiratory/Chest: Denies cough, dyspnea, dyspnea on exertion, orthopnea or sputum Gastrointestinal Gastrointestinal: Denies abdominal pain, diarrhea, nausea or vomiting Genitourinary Genitourinary ED: Denies dysuria, hematuria or urinary frequency Musculoskeletal Musculoskeletal: Denies arthralgias, back pain, myalgias or neck pain Integumentary Denies abscess, Abrasions or rash Neurologic Neurologic: Reports headache(s) and other Details: Slurred speech, weakness ; Denies weakness Psychiatric Psychiatric: Denies anxiety, depression or suicidal thoughts Endocrine Endocrinology: Denies polydipsia, polyphagia or polyuria Hematologic/Lymphatic Hematologic/Lymphatic: Denies easy bleeding, easy bruising or lymphadenopathy Allergic/Immunologic Allergic/Immunologic ED: Denies mouth swelling, tongue swelling or urticaria EXAM Physical Exam Const Vital Signs: 01/15/23 10:57 01/15/23 11:02 01/15/23 11:02 Temperature 97.6 F L Temperature Source Temporal Pulse Rate 100 69 Respiratory Rate 18 21 H Blood Pressure 114/56 L 138/93 H Blood Pressure Mean 75 108 Pulse Ox 95 94 Oxygen Delivery Method Room Air Room Air Room Air Oxygen Flow Rate (L/min) 01/15/23 10:52 01/15/23 11:22 01/15/23 11:24 Temperature 98.0 F Temperature Source Temporal Pulse Rate 73 65 Respiratory Rate 18 16 Blood Pressure 138/93 H 138/76 H Blood Pressure Mean 108 96 Pulse Ox 95 93 95 Oxygen Delivery Method Room Air Room Air Nasal Cannula Oxygen Flow Rate (L/min) 2 01/15/23 11:30 Temperature 98.0 F Temperature Source Temporal Pulse Rate 65 Respiratory Rate 20 H Blood Pressure 129/83 H Blood Pressure Mean 98 Pulse Ox 99 Oxygen Delivery Method Nasal Cannula Oxygen Flow Rate (L/min) 2 Positive well nourished and well developed General Appearance ED: well developed and NAD HEENT Reports TM's clear and moist mucous membranes normocephalic and atraumatic; Negative for trauma or tenderness Tympanic Membrane ED: Yes TM's clear Eyes PERRL and EOMs intact bilaterally General Eye ED: Negative for pale conjunctiva or scleral icterus Neck no lymphadenopathy, supple and no JVD General: Negative for tenderness Chest Wall inspection of chest normal and palpation of chest normal Chest: Negative for tenderness Resp normal respiratory effort and clear to auscultation bilaterally Effort and Inspection: Negative for respiratory distress or pain with movement Auscultation: Negative for rhonchi, wheezes or diminished lung sounds Cardio regular rate, regular rhythm, S1 normal heart sound, S2 normal heart sound and no murmurs Peripheral Pulses: pulses 2+ throughout GI normal to inspection, nondistended, normoactive bowel sounds, soft to palpation, non-tender, non-distended and no masses Back/Spine no CVA tenderness and no thoracic nor lumbar tenderness Extremity normal to inspection Extremity Narrative: Abrasion to right elbow and left forearm General Extremety ED: Negative for edema General Extremity: Negative for edema Neuro oriented x3, CN's II-XII intact bilaterally, no sensory deficits noted and gait normal Neuro Narrative: NIH stroke scale is a 1 for some mild dysarthria. No focal weakness noted. Sensorium / Orientation: awake, alert, oriented to person, oriented to place and oriented to time Motor Exam: strength 5/5 throughout and strength abnormal Psych mental status grossly normal Skin no rashes or lesions noted Skin Narrative: Abrasion to bridge of nose MDM MDM MDM Narrative Medical decision making narrative: AndPatient presents with concern for possible stroke. In the differential would be stroke versus syncopal episode with head injury. EMS did check blood sugar and it was in the 160s. Stroke team was called prior to patient arrival in the emergency department. She was evaluated in the hallway on cot and emergently sent to the CT scanner to evaluate for stroke. Initial CT scan of brain without contrast was unremarkable and no evidence for bleeding. Patient was evaluated by stroke neurologist initially but then the robot went offline and stroke neurologist could not finish her exam but initially did not find anything focal and does not recommend tPA. Patient's symptoms have currently resolved. CTA of the head and neck were negative for large vessel occlusions. EKG obtained on arrival showed a sinus rhythm with a rate of 70 bpm with PACs. CBC with differential showed slightly elevated white count 12.2 with hemoglobin 11.4 and platelet count of 313. Chemistries unremarkable. Troponin was normal at 5. Glucose was 153. Etiology of symptoms unclear as in the differential would be TIA versus syncope versus cardiac dysrhythmia versus slip and fall with head injury. History & Record Review Discussion w/independent historian: EMS personnel and Patient Lab Data Attestation: I reviewed the patient's lab results. Labs: Laboratory Results - last 24 hr 01/15/23 11:03 WBC 12.2 H RBC 3.67 L Hgb 11.4 L Hct 34.4 L MCV 93.7 MCH 31.1 MCHC 33.1 RDW Std Deviation 46.2 H RDW Coeff of [place] 13.4 Plt Count 313 MPV 9.0 Immature Gran % (Auto) 0.400 Neut % (Auto) 45.8 L Lymph % (Auto) 40.9 [place] % (Auto) 9.2 Eos % (Auto) 1.3 Baso % (Auto) 2.4 H Absolute Neuts (auto) 5.6 Absolute Lymphs (auto) 4.97 H Nucleated RBC % 0 PT 14.1 INR 1.1 APTT 25.4 Sodium 134 L Potassium 3.9 Chloride 102 Carbon Dioxide 29.0 Anion Gap 3 L BUN 21 H Creatinine 1.33 H Estim Creat Clear Calc 21.86 Est GFR (MDRD) Af Amer 49 L Est GFR (MDRD) Non-Af 40 L BUN/Creatinine Ratio 15.8 Glucose 153 H Calcium 8.2 L Troponin I High Sens 5 Radiography Diagnostic Testing: Clinical Impression(s) from Imaging Studies Brain CT 01/15/23 10:52 IMPRESSION: Chronic involutional changes of the brain. N.B. : The above Results were Read Back by Olivier Maradiaga MD to Dr Tequila DO, and understanding confirmed on 01/15/2023 11:04:40 (ET). Electronically Signed: Olivier Maradiaga MD at 11:06 EDT , ADDENDUM: 01/15/23 1113 IMPRESSION: Chronic involutional changes of the brain. N.B. : The above Results were Read Back by Olivier Maradiaga MD to Dr Tequila DO, and understanding confirmed on 01/15/2023 11:04:40 (ET). Electronically Signed: Olivier Maradiaga MD at 11:06 EDT , Head/Neck CTA 01/15/23 10:58 IMPRESSION: 1. No demonstrated intra-arterial thrombus or occlusion of the major arteries of the hoh of [place] or demonstrated aneurysm or hemodynamically significant stenosis. 2. Mild atherosclerotic plaque right carotid bulb and internal carotid artery. N.B. : The above Results were Read Back by Wilmer Infante MD to Stephanie Gonzalez DO, and understanding confirmed on 01/15/2023 11:54:24 (ET). Electronically Signed: Wilmer Infante MD at 11:55 EDT , ADDENDUM: 01/15/23 1202 IMPRESSION: 1. No demonstrated intra-arterial thrombus or occlusion of the major arteries of the hoh of [place] or demonstrated aneurysm or hemodynamically significant stenosis. 2. Mild atherosclerotic plaque right carotid bulb and internal carotid artery. N.B. : The above Results were Read Back by Wilmer Infante MD to Stephanie Gonzalez DO, and understanding confirmed on 01/15/2023 11:54:24 (ET). Electronically Signed: Wilmer Infante MD at 11:55 EDT , Chest X-Ray 01/15/23 11:44 IMPRESSION: Progressive increased markings at the right lung base suggestive of atelectasis superimposed on basilar scarring. Electronically Signed: Olivier Maradiaga MD at 12:02 EDT , 1 view chest x-ray obtained interpreted by myself as no evidence of infiltrate or pneumothorax or acute disease process. Official report from radiology pending. EKG Initial EKG: Attestation: I personally reviewed and interpreted this EKG as follows: Comments: Sinus rhythm with a rate of 70 bpm with PACs otherwise no acute ST segment change Discharge Plan Dx/Rx/DC Orders Clinical Impression: Dysarthria, Syncope, Parkinson's disease Disposition Disposition: Acute Care Hospital [facility]
--- NOTE | 2023-01-15 11:09 | NURSING ---
1039 STROKE ALERT CALLED PRIOR TO ARRIVAL
[2023-01-15 11:12] LABS: Absolute Lymphocyte Count 4.97 X10^3/uL (0.83-4.51); Absolute Neutrophil Count 5.6 X10^3/uL (2.0-7.7); Basophil# 0.29 X10^3/uL; Basophil% 2.4 % (0-1); Eosinophil# 0.16 X10^3/uL; Eosinophils% 1.3 % (0-5); Hematocrit 34.4 % (37-47); Hemoglobin 11.4 g/dL (12.0-15.0); Lymphocyte # 4.97 X10^3/ul (0.83-4.51); Lymphocyte % 40.9 % (19-41); Mean Corp Hgb Conc 33.1 g/dL (32-36); Mean Corpuscular Hgb 31.1 pg (27.0-32.0); Mean Corpuscular Volume 93.7 fL (81-99); Monocyte# 1.12 X10^3/uL; Monocyte% 9.2 % (0-10); NRBC Flagged by Analyzer 0 % (0-5); Neutrophil # 5.57 X10^3/uL (2.7-7.7); Neutrophil % 45.8 % (47-70); Platelet Count 313 K/mm3 (150-450); RBC Distribution Width CV 13.4 % (11.6-14.6); RBC Distribution Width SD 46.2 fl (35.1-43.9); Red Blood Count 3.67 M/mm3 (4.2-5.4); White Blood Count 12.2 K/mm3 (4.4-11.0)
--- NOTE | 2023-01-15 11:15 | ED.RN ---
[facility] CALLED AT 1101, INFORMED THAT PATIENT BACK IN ROOM, WAITING FOR DOCTOR TO CALL BACK.
[2023-01-15 11:25] LABS: International Normalized Ratio 1.1; Prothrombin Time (Protime)PT. 14.1 SECONDS (11.7-14.9)
[2023-01-15 11:26] LABS: Partial Thromboplast Time 25.4 Seconds (24.1-36.2)
[2023-01-15 11:30] LABS: Anion Gap 3 (5-15); BUN 21 mg/dL (7-18); BUN/Creat Ratio 15.8 RATIO (10-20); Calcium,Total 8.2 mg/dL (8.5-10.1); Chloride 102 mmol/L (98-107); Creatinine, Serum 1.33 mg/dL (0.55-1.02); EST Glomerular Filtration Rate 40 mL/min (>60); Est Glom Filt Rate - Afr Amer 49 mL/min (>60); Estimated Creatinine Clearance 21.86 ml/min; Glucose 153 mg/dL (74-106); Potassium 3.9 mmol/L (3.5-5.1); Sodium Level 134 mmol/L (136-145); Troponin-I HS 5 pg/mL (3.0-54.0)
[2023-01-15] MEDS: 0.9% Normal Saline 1,000 ML 100 ML IV (11:32)
--- NOTE | 2023-01-15 11:44 | RAD_ITS ---
STUDY: X-RAY CHEST REASON FOR EXAM: Female, 87 years old. Neuro deficit, acute, stroke suspected TECHNIQUE: Single AP portable view of the chest. COMPARISON: Comparison is made with prior study dated May 12, 2022. FINDINGS: EKG electrodes are seen. Hyperinflation. Progressive increased markings at the right lung base suggestive of atelectasis superimposed on basilar scarring. Blunting of the right costophrenic angle. Sternal cerclage wires and vascular clips are present from a prior sternotomy and coronary artery bypass graft procedure (CABG). Normal mediastinum and bar. Normal visualized pulmonary arteries. There is atherosclerotic tortuosity of the aortic arch and descending thoracic aorta. There are diffuse degenerative changes of the visualized thoracic spine. There is degenerative osteoarthritis of the bilateral shoulders. There is no demonstrated abnormality of the visualized soft tissue structures of the upper abdomen. RAD/Chest 1 View IMPRESSION: Progressive increased markings at the right lung base suggestive of atelectasis superimposed on basilar scarring. Electronically Signed: Olivier Maradiaga MD at 12:02 EDT ,
--- NOTE | 2023-01-15 11:53 | CM.ED ---
Social Work SW introduced self and role to patient. SW provided support to patient and her son due to stroke alert. SW is available for family/pt as needed. Marcella Bills DIRECTOR TREASURER, FILLING CARRIER
--- NOTE | 2023-01-15 12:02 | CHAPLAIN ---
Type of Pastoral Visit ___ Initial Visit ___ Follow-up Visit ___ On-call Visit ___ General Patient Visit ___ Spiritual Assessment ___ Family Conference ___ Bereavement _x__ Rapid Response ___ Code Blue ___ Other (describe below) Pastoral Care Referral From ___ Patient _x__ Family ___ Nurse ___ Physician ___ Desktop Publishing Associate ___ Street Light Servicer Supervisor ___ Other (describe below) Sacrament/Intervention ___ Active listening ___ Anointing ___ Sikhism ___ Bereavement ___ Communion ___ Karly exploration ___ ___ Life review ___ Prayer ___ Reconciliation ___ Sacrament of Sick _x__ Supportive presence ___ Wedding ___ Other (describe below) Pastoral Comments met with family member after a stroke alert was called to ED; pat is responsive now; offer of support to family member who declines at this time; will be available as desired
--- NOTE | 2023-01-15 12:26 | MRI_ITS ---
STUDY: MR Brain W/O Contrast 01/15/2023 4:18 PM REASON FOR EXAM: Female, 87 years old. dysarthria, found semi unresponsive, slurred speech, headache COMPARISON: CT done earlier today TECHNIQUE: Standardized multiplanar fat and water weighted pulse sequences were obtained. MR Brain W/O Contrast FINDINGS: There is mild cerebral atrophy with widening of the extra-axial spaces and ventricular dilatation. There are a limited number of small white matter hyperintensities, distributed throughout the deep white matter tracts of the cerebral hemispheres, consistent with mild chronic white matter ischemic changes. There is mild prominence of the vermian folia, consistent with atrophy of the vermis. The cerebellar hemispheres are normal. Normal bilateral basal ganglia. Normal thalami. There is no extra-axial fluid accumulation. Normal flow voids within the major intracranial circulation suggesting patency by spin echo criteria. Normal sella turcica, pituitary gland, infundibular stalk, optic chiasm and hypothalamus. Normal tectal plate and pineal gland. Normal midbrain, paul and medulla. Normal basal cisterns. Normal bilateral temporal bones. Normal bilateral internal auditory canals. No demonstrated orbital abnormality, within the constraints of a routine brain study. Normal visualized paranasal sinuses. Normal calvarium and skull base. Normal visualized soft tissue structures. Normal visualized upper cervical spine. Aspect score 10 MRI/Brain without Contrast IMPRESSION: (NOT LISTED IN ORDER OF SIGNIFICANCE) There are no acute intracranial findings. Electronically Signed: Melvin Diamond MD at 16:20 EDT ,
[2023-01-15] MEDS: Diphth,Pertuss(Acell),Tet Vac 0.5 ML Vial IM (12:35)
--- NOTE | 2023-01-15 13:01 | ECHOD_ITS ---
Reason For Study: Near syncope Procedure This was a 2D Doppler, Color Flow transthoracic echocardiogram. Exam performed portable in patient room. Left Ventricle Normal LV size. The estimated ejection fraction is 60 %. Normal diastology for age. No regional wall motion abnormalities noted. Right Ventricle Normal right ventricle. Normal systolic function. Atria Normal left atrium. Normal right atrium. No doppler evidence for ASD. Bubble contrast study negative for right to left interatrial shunt. Mitral Valve There is no mitral valve stenosis. Mild (1+) mitral valve insufficiency. Tricuspid Valve There is no tricuspid stenosis. Trivial tricuspid valve insufficiency. Pulmonary artery systolic pressure is 35 mmHg. Aortic Valve Trisinus/trileaflet aortic valve. There is no aortic stenosis. Trivial aortic valve insufficiency. Pulmonic Valve There is no pulmonic valvular stenosis. Trivial pulmonic valve insufficiency. Great Vessels Normal aortic root. Pericardium/Pleural No pericardial effusion. Medication Performed a rapid injection of agitated mix of 9 cc saline and 1cc air to assess for atrial septal defect. MMode/2D Measurements & Calculations LVIDd: 4.0 cm IVSd: 0.81 cm Ao root diam: 3.0 cm LVIDs: 2.0 cm LVPWd: 1.1 cm RVDd: 2.9 cm FS: 48.5 % LAV(MOD-bp): 37.7 ml LVAd ap4: 20.4 cm2 SV(MOD-sp4): 30.0 ml LAV(MOD-bp) Indexed: 26.8 ml/m2 LVLd ap4: 6.7 cm LAV(MOD-sp2): 27.6 ml EDV(MOD-sp4): 53.4 ml LAV(MOD-sp4): 38.8 ml EDV(sp4-el): 52.7 ml LVAs ap4: 11.6 cm2 LVLs ap4: 5.4 cm ESV(MOD-sp4): 23.3 ml ESV(sp4-el): 21.2 ml EF(MOD-sp4): 56.3 % EF(sp4-el): 59.7 % SV(sp4-el): 31.5 ml LA A4 area: 16.6 cm2 LA dimension(2D): 3.3 cm RA A4 area: 18.9 cm2 Time Measurements MV dec time: 0.15 sec Doppler Measurements & Calculations MV E max alex: 87.3 cm/sec Lat Peak E' Alex: 9.8 cm/sec Med Peak E' Alex: 7.6 cm/sec MV A max alex: 75.7 cm/sec E/E' lat: 8.9 E/E' med: 11.5 MV E/A: 1.2 MV dec slope: 601.0 cm/sec2 Ao V2 max: 144.4 cm/sec LV V1 max: 90.8 cm/sec Ao max P.4 mmHg LV V1 max P.3 mmHg LV V1 mean P.8 mmHg LV V1 mean: 63.3 cm/sec LV V1 VTI: 23.8 cm PA V2 max: 85.2 cm/sec TR max alex: 276.2 cm/sec TR max P.5 mmHg ECHO/Echo Complete Interpretation Summary The estimated ejection fraction is 60 %. Mild (1+) mitral valve insufficiency. Trivial aortic valve insufficiency. Ordering Physician: Gonzalez Garza Referring Physician: Howard Zimmerman Chi Performed By: Laurie Villarreal RDCS
--- NOTE | 2023-01-15 13:01 | NURSING ---
104 OBS TERELETSKY DYSARTHRIA, SYNCOPE, PARKINSON'S
[2023-01-15] MEDS: Carbidopa/Levodopa 25/100 Tablet PO ×2 (13:52→21:13)
[2023-01-15] MEDS: Ensure Plus High Protein 120 ML LIQUID PO ×2 (17:18→21:14)
--- NOTE | 2023-01-15 19:55 | HP.PCM.HOS_ITS ---
HPI - General General Date of Admission: 01/15/23 Date of Service: 01/15/23 Chief Complaint: Presyncope, dysarthria HPI Narrative ADDIS CARRENO, is a 87 F who presents to the emergency room at [facility] after sustaining a presyncopal episode in the parking lot at [facility] today. She was getting out of her car. Patient states she did not pass out but struck her nose on her car door-she states she became lightheaded but did not feel she passed out. She was found to have slurred speech, a stroke team was called, patient underwent a head CT which was unremarkable, stroke score was zero. Patient underwent a CTA of the head and neck that showed no evidence of intra- arterial thrombus or occlusion of the major arteries, there was mild atherosclerotic plaque in the right carotid bulb and internal carotid artery. Patient was placed into observation status on PCU, she will undergo an MRI to rule out CVA, she will be monitored on telemetry, I will order an echocardiogram-patient has a history of mitral valve prolapse and she has not had an echocardiogram here since 2020. [facility] Medical History Acute bronchitis, unspecified Acute sinusitis, unspecified Contact with and (suspected) exposure to other viral communicable diseases Essential hypertension History of atrial myxoma Hyperlipidemia Hypertension Lymphoma Nonrheumatic mitral (valve) prolapse Nonrheumatic mitral valve regurgitation Nonrheumatic tricuspid valve regurgitation Parkinsons disease Parotid tumor Premature atrial contractions Premature ventricular contraction Home Medications ascorbic acid (vitamin C) 500 mg capsule 1,000 mg PO QDAY 12/31/17 [History Last Taken 01/15/23] multivitamin 1 tab PO DAILY 11/20/18 [History Last Taken 01/15/23] psyllium husk 3.4 gram/5.4 gram oral powder (Metamucil) 1 tsp PO DAILY PRN Constipation 11/23/21 [History Last Taken Unknown] carbidopa 25 mg-levodopa 100 mg tablet 2 tab PO TID 01/05/23 [History Last Taken 01/15/23] albuterol sulfate 90 mcg/actuation aerosol inhaler 2 puff inhalation Q4H PRN shortness of breath or wheezing 01/15/23 [History Last Taken Unknown] metoprolol tartrate 25 mg tablet 12.5 mg PO Q12H 01/15/23 [History Last Taken 01/15/23] Allergy/AdvReac Type Severity Reaction Status Date / Time Penicillins Allergy Rash Verified 01/05/23 16:11 tramadol AdvReac Other Verified 01/05/23 16:11 Surgical History History of laparoscopic cholecystectomy History of splenectomy Social History Smoking Status: Never smoker alcohol intake: current details: occasional substance use type: does not use ROS Constitutional Constitutional: Denies anorexia, change in weight, chills, fatigue, fever(s), malaise, night sweats or weakness Eyes Eyes: Denies blurry vision, change in vision, discharge from eye(s) or eye pain Cardiovascular Cardiovascular: Reports lightheadedness; Denies chest pain, claudication, dyspnea on exertion, edema or palpitations Respiratory/Chest Respiratory/Chest: Denies cough, hemoptysis, shortness of breath at rest or shor tness of breath with exertion Gastrointestinal Gastrointestinal: Denies abdominal pain, constipation, diarrhea, hematemesis, hematochezia, melena, nausea or vomiting Genitourinary Genitourinary: Denies dysuria, hematuria, urinary frequency, urinary hesitancy, urinary incontinence or urinary urgency Musculoskeletal Musculoskeletal: Denies back pain, joint pain, joint stiffness, joint swelling, myalgias or neck pain Neurologic Neurologic: Denies abnormal gait, abnormal speech, dizziness, focal weakness, headache(s), loss of vision, numbness, other visual disturbances, paresthesias, syncope or tingling Psychiatric Psychiatric: Denies anxiety, cognitive impairment, depression, irritability, mood swings or suicidal ideation Endocrine Endocrinology: Denies change in body appearance, cold intolerance, excessive sweating, heat intolerance, polydipsia or polyuria Hematologic/Lymphatic Hematologic/Lymphatic: Denies none, anemia, easy bleeding, easy bruising or lymphadenopathy Allergic/Immunologic Allergic/Immunologic: Denies rhinitis, urticaria, eczemia or asthma Vital Signs Vital Signs Vital Signs: 01/15/23 10:57 01/15/23 11:02 01/15/23 11:02 Temperature 97.6 F L Temperature Source Temporal Pulse Rate 100 69 Respiratory Rate 18 21 H Respiratory Effort Respiratory Depth Respiratory Pattern Blood Pressure 114/56 L 138/93 H Blood Pressure Mean 75 108 Blood Pressure Source Blood Pressure Position Blood Pressure Location Pulse Ox 95 94 Oxygen Delivery Method Room Air Room Air Room Air Oxygen Flow Rate (L/min) 01/15/23 10:52 01/15/23 11:22 01/15/23 11:24 Temperature 98.0 F Temperature Source Temporal Pulse Rate 73 65 Respiratory Rate 18 16 Respiratory Effort Respiratory Depth Respiratory Pattern Blood Pressure 138/93 H 138/76 H Blood Pressure Mean 108 96 Blood Pressure Source Blood Pressure Position Blood Pressure Location Pulse Ox 95 93 95 Oxygen Delivery Method Room Air Room Air Nasal Cannula Oxygen Flow Rate (L/min) 2 01/15/23 11:30 01/15/23 12:00 01/15/23 12:07 Temperature 98.0 F 97.9 F 97.9 F Temperature Source Temporal Temporal Temporal Pulse Rate 65 65 65 Respiratory Rate 20 H 20 H 20 H Respiratory Effort Respiratory Depth Respiratory Pattern Blood Pressure 129/83 H 136/79 H 136/79 H Blood Pressure Mean 98 98 98 Blood Pressure Source Blood Pressure Position Blood Pressure Location Pulse Ox 99 99 98 Oxygen Delivery Method Nasal Cannula Nasal Cannula Nasal Cannula Oxygen Flow Rate (L/min) 2 1 1 01/15/23 12:30 01/15/23 12:55 01/15/23 13:33 Temperature 97.6 F L 97.7 F L 96.9 F L Temperature Source Temporal Oral Temporal Pulse Rate 63 62 53 L Respiratory Rate 14 17 16 Respiratory Effort Respiratory Depth Respiratory Pattern Blood Pressure 139/82 H 143/84 H 147/91 H Blood Pressure Mean 101 103 109 Blood Pressure Source Monitor Monitor Blood Pressure Position Semi-Fowlers Semi-Fowlers Blood Pressure Location Left Arm Right Arm Pulse Ox 94 95 Oxygen Delivery Method Nasal Cannula Room Air Room Air Oxygen Flow Rate (L/min) 1 01/15/23 17:11 01/15/23 13:30 01/15/23 17:25 Temperature 96.7 F L Temperature Source Temporal Pulse Rate 70 Respiratory Rate 16 Respiratory Effort Normal Non-Labored Normal Non-Labored Respiratory Depth Normal Normal Respiratory Pattern Normal Normal Blood Pressure 113/79 Blood Pressure Mean 90 Blood Pressure Source Monitor Blood Pressure Position Semi-Fowlers Blood Pressure Location Right Arm Pulse Ox 95 95 Oxygen Delivery Method Room Air Room Air Room Air Oxygen Flow Rate (L/min) Weight Weight: 42.7 kg Body Mass Index (BMI) 18.3 Physical Exam Const alert, oriented x3, no apparent distress, average body habitus and healthy appearing General Appearance: cooperative, well kempt and well developed Orientation / Consciousness: awake, oriented to person, oriented to place and oriented to time HEENT normocephalic, hearing grossly normal bilaterally and moist oral mucous membranes HEENT Narrative: Patient has a small abrasion on the bridge of her nose Eyes PERRL, EOMs intact bilaterally and conjunctivae normal Neck supple, no JVD, thyroid normal and no carotid bruits General: trachea midline Resp normal respiratory effort, no retractions, no use of accessory muscles and clear to auscultation bilaterally Auscultation: Negative for rales, rhonchi or wheezes Cardio regular rate, regular rhythm, S1 normal heart sound, S2 normal heart sound, no murmurs, no rub and no gallops GI normal to inspection, nondistended, normoactive bowel sounds, soft to palpation, non-tender and non-distended Extremity no clubbing, cyanosis or edema Skin no rashes or lesions noted General Skin Exam: no breakdown Neuro oriented x3, CN's II-XII intact bilaterally, no focal motor deficits and no sensory deficits noted Sensorium / Orientation: awake, alert, oriented to person, oriented to place and oriented to time Speech: speech normal Psych affect normal Results Medical Records Data Medical Nutrition Assessment Dietitian: Malnutrition Criteria Met Start: 01/15/23 16:51 Freq: Status: Active Protocol: Document 01/15/23 16:52 RMA (Rec: 01/15/23 16:52 RMA [id number]) Nutrition Malnutrition Evidence of Malnutrition Exists Yes Malnutrition (severe): Chronic Evidenced By Suboptimal Energy Intake ( Severe),Weight Loss (Severe), Physical Changes (Severe) Clinical Problem Chronic Disease or Condition Related Malnutrition Etiology Severe protein-calorie malnutrition in the context of chronic disease/debility related to inadequate oral/ energy intake Signs/Symptoms as evidenced by ~10% unintentional weight loss x 6 months, poor PO meeting less than 50% estimated nutrition needs x 6 months, BMI 18.4 and moderate to severe muscle wasting/fat depletion in the face, clavicle, arms and legs Status Active Problem Recommendation Dietitian Recommendations/Changes Will continue liberalized regular diet with consistency alteration as indicated per AUTOMOTIVE INTERNET SALES MANAGER. Will continue 120mL ensure plus high protein 4 times per day with medpass. Will add ensure pudding w/ lunch and magic cup w/ dinner for tolerance. Lab / Micro Data 01/15/23 11:03 01/15/23 11:03 Labs: Laboratory Results - last 24 hr 01/15/23 11:03: WBC 12.2 H, RBC 3.67 L, Hgb 11.4 L, Hct 34.4 L, MCV 93.7, MCH 31.1, MCHC 33.1, RDW Std Deviation 46.2 H, RDW Coeff of [place] 13.4, Plt Count 313, MPV 9.0, Immature Gran % (Auto) 0.400, Neut % (Auto) 45.8 L, Lymph % (Auto) 40.9, [place] % (Auto) 9.2, Eos % (Auto) 1.3, Baso % (Auto) 2.4 H, Absolute Neuts (auto) 5.6, Absolute Lymphs (auto) 4.97 H, Nucleated RBC % 0, PT 14.1, INR 1.1, APTT 25.4, Sodium 134 L, Potassium 3.9, Chloride 102, Carbon Dioxide 29.0, Anion Gap 3 L, BUN 21 H, Creatinine 1.33 H, Estim Creat Clear Calc 21.86, Est GFR (MDRD) Af Amer 49 L, Est GFR (MDRD) Non-Af 40 L, BUN/Creatinine Ratio 15.8, Glucose 153 H, Calcium 8.2 L, Troponin I High Sens [address] 01/15/23 10:52 IMPRESSION: Chronic involutional changes of the brain. N.B. : The above Results were Read Back by Olivier Maradiaga MD to Dr Tequila DO, and understanding confirmed on 01/15/2023 11:04:40 (ET). Electronically Signed: Olivier Maradiaga MD at 11:06 EDT , ADDENDUM: 01/15/23 1113 IMPRESSION: Chronic involutional changes of the brain. N.B. : The above Results were Read Back by Olivier Maradiaga MD to Dr Tequila DO, and understanding confirmed on 01/15/2023 11:04:40 (ET). Electronically Signed: Olivier Maradiaga MD at 11:06 EDT , Head/Neck CTA 01/15/23 10:58 IMPRESSION: 1. No demonstrated intra-arterial thrombus or occlusion of the major arteries of the [place] or demonstrated aneurysm or hemodynamically significant stenosis. 2. Mild atherosclerotic plaque right carotid bulb and internal carotid artery. N.B. : The above Results were Read Back by Wilmer Infante MD to Stephanie Gonzalez DO, and understanding confirmed on 01/15/2023 11:54:24 (ET). Electronically Signed: Wilmer Infante MD at 11:55 EDT , ADDENDUM: 01/15/23 1202 IMPRESSION: 1. No demonstrated intra-arterial thrombus or occlusion of the major arteries [place] or demonstrated aneurysm or hemodynamically significant stenosis. 2. Mild atherosclerotic plaque right carotid bulb and internal carotid artery. N.B. : The above Results were Read Back by Wilmer Infante MD to Stephanie Gonzalez DO, and understanding confirmed on 01/15/2023 11:54:24 (ET). Electronically Signed: Wilmer Infante MD at 11:55 EDT , Chest X-Ray 01/15/23 11:44 IMPRESSION: Progressive increased markings at the right lung base suggestive of atelectasis superimposed on basilar scarring. Electronically Signed: Olivier Maradiaga MD at 12:02 EDT , Brain MRI 01/15/23 12:26 IMPRESSION: (NOT LISTED IN ORDER OF SIGNIFICANCE) There are no acute intracranial findings. Electronically Signed: Melvin Diamond MD at 16:20 EDT Reading Location ID and State: [facility] / [place] , Service support , Echocardiogram 01/15/23 13:01 Interpretation Summary The estimated ejection fraction is 60 %. Mild (1+) mitral valve insufficiency. Trivial aortic valve insufficiency. Ordering Physician: Gonzalez Garza Referring Physician: Howard Zimmerman Chi Performed By: Laurie Villarreal RDCS Assessment & Plan Assessment/Plan (1) Near syncope: PLAN: Plan 1. Presyncope-etiology unclear, patient was placed in observation status on PCU, she will undergo an MRI of the brain to rule out CVA, echocardiogram will be performed to check for any valvular heart disease or LV impairment, she will be seen by PT and OT. #2 Parkinson's disease-patient will remain on her home medication #3 cardiac arrhythmias-patient has a history of PACs and PVCs, she will remain on metoprolol Total clinical time spent by myself addressing the patient's medical issues, reviewing all of her data, and collaborating with patient's care team: 55 minutes Charges/Coding Visit Charges Inpatient E&M: 71850 Init Hosp L2
[2023-01-15] MEDS: Metoprolol Tartrate 25 MG Tablet 12.5 MG PO (21:13)
[2023-01-16 03:12] VITALS: BP 137/90; PULSE 69; RESP 16; TEMP 36.2; O2SAT 92
[2023-01-16] MEDS: Acetaminophen 325 MG Tablet 650 MG PO (03:47)
[2023-01-16 06:40] LABS: Cholesterol 187 mg/dL (200); High Density Lipoprotein 59 mg/dL; Triglycerides 129 mg/dL; Very Low Density Lipoprotein 26 mg/dL (5-40)
[2023-01-16] MEDS: Carbidopa/Levodopa 25/100 Tablet PO ×2 (06:43→13:38)
[2023-01-16 09:50] VITALS: BP 93/59; PULSE 88; RESP 16; TEMP 36.5; O2SAT 95
[2023-01-16] MEDS: Ensure Plus High Protein 120 ML LIQUID PO (09:52)
[2023-01-16 10:00] VITALS: O2SAT 95
[2023-01-16 10:47] VITALS: BP 93/59
--- NOTE | 2023-01-16 11:44 | DCINST_ITS ---
Discharge Instructions Diet Discharge Diet: No restrictions Activity Discharge Activity: Return to Normal Activity Weight Bearing Status: Full weight bearing Follow Up Care Test Results: Test results from this visit will be discussed in further detail at your follow- up appointment, if applicable. Discharge Plan Admission Admit Date/Time: 01/15/23 12:19 Primary Reason for Your Visit: Presyncope Attending Provider: Gonzalez Garza Primary Care Provider: Howard Zimmerman Chi Instructions Additional Instructions / Restrictions: It was recommended during your hospitalization that you follow-up with speech therapy as an outpatient, please discuss this with your family practitioner at your office visit Discharge Orders/Prescriptions Prescriptions: Continued ascorbic acid (vitamin C) 500 mg capsule 1,000 mg PO QDAY carbidopa-levodopa 25-100 mg tablet 2 tab PO TID multivitamin tablet 1 tab PO DAILY Metamucil 3.4 gram/5.4 gram powder 1 tsp PO DAILY PRN (Reason: Constipation) Rx Instructions: mix into at least 4 oz water or juice before administering albuterol sulfate 90 mcg/actuation HFA aerosol inhaler 2 puff INHALATION Q4H PRN (Reason: shortness of breath or wheezing) Patient Comments: TAKE 2 PUFFS BY MOUTH EVERY 4 HOURS NEEDED metoprolol tartrate 25 mg tablet 12.5 mg PO Q12H Rx Instructions: TAKE 1/2 TABLET BY MOUTH TWICE A DAY Referrals / Follow Up: Howard Zimmerman Chi, MD [Primary Care Provider] - Within 1 Week Disposition Disposition (needs filled in before D/C Order can be placed): Home, Self Care
--- NOTE | 2023-01-16 11:47 | PCM.DC.SUM ---
Providers Date of Admission: 01/15/23 Date of Discharge: 01/16/23 Primary Care Physician: Dr. Howard Zimmerman MD Reason For Visit: SYNCOPE Diagnosis Discharge Diagnosis (1) Near syncope: Status: Inactive Code(s): R55 - Syncope and collapse Plan 1. Presyncope-etiology unclear, patient was placed in observation status on PCU, she will undergo an MRI of the brain to rule out CVA, echocardiogram will be performed to check for any valvular heart disease or LV impairment, she will be seen by PT and OT. #2 Parkinson's disease-patient will remain on her home medication #3 cardiac arrhythmias-patient has a history of PACs and PVCs, she will remain on metoprolol Total clinical time spent by myself addressing the patient's medical issues, reviewing all of her data, and collaborating with patient's care team: 55 minutes Medications at Discharge Home Medications ascorbic acid (vitamin C) 500 mg capsule 1,000 mg PO QDAY vitamin 12/31/17 multivitamin 1 tab PO DAILY vitamin 11/20/18 psyllium husk 3.4 gram/5.4 gram oral powder (Metamucil) 1 tsp PO DAILY PRN Constipation 11/23/21 carbidopa 25 mg-levodopa 100 mg tablet 2 tab PO TID parkinsons 01/05/23 albuterol sulfate 90 mcg/actuation aerosol inhaler 2 puff inhalation Q4H PRN shortness of breath or wheezing 01/15/23 metoprolol tartrate 25 mg tablet 12.5 mg PO Q12H blood pressure 01/15/23 Hospital Course Operations None Procedures 2-D Echocardiogram Summary of Care Provided Minutes Spent on Discharge: 31 Hospital Course: This 87-year-old white female was seen in the emergency room at [facility] after she had a presyncopal episode getting out of her car at a rehab facility. Patient was going there for rehab services. Patient had a slight injury to her nose (minor abrasion) and struck her elbows without significant injuries. Patient denied any syncope, she stated she got lightheaded and slumped briefly. Patient was noted to have some slurred speech when she was helped at the scene. Work-up in the emergency room was unremarkable including imaging studies. Her NIH score was 0. Patient was placed in observation status on PCU, patient had an echocardiogram performed which showed a normal EF, she underwent an MRI of the brain which showed no evidence of stroke. Patient was seen by PT, OT, and speech therapy, it was felt that she did not require additional PT and OT other than her usual outpatient physical therapy that she was involved with. It was felt that she would benefit from further speech eval including a possible swallowing eval, this did not need to be performed while she was hospitalized. On 01/16/2023, patient was seen and examined: On examination she appeared in good health and spirits, she does not appear to be in any distress. Vital signs as documented. Skin warm and dry and without overt rashes. Neck without JVD, thyroid appears normal, trachea is midline, neck is supple. Lungs clear, normal air movement was noted. Heart exam notable for regular rhythm, normal sounds and absence of murmurs, rubs or gallops. Abdomen unremarkable and without evidence of organomegaly, masses, or abdominal aortic enlargement, bowel sounds are present in all 4 quadrants, no abdominal tenderness was noted. Extremities nonedematous, no cyanosis was noted, no clubbing was noted. Neuro: Cranial nerves II through XII are grossly intact, no focal motor deficits were noted, sensation to light touch and pinprick is intact, motor exam 5/5 throughout. Psych: Patient is alert and oriented x3, she does not appear anxious or depressed, she does not appear agitated. Patient was felt to be stable for discharge on 01/16/2023 Medical Records Data Medical Nutrition Assessment Dietitian: Malnutrition Criteria Met Start: 01/15/23 16:51 Freq: Status: Active Protocol: Document 01/15/23 16:52 RMA (Rec: 01/15/23 16:52 RMA [id number]) Nutrition Malnutrition Evidence of Malnutrition Exists Yes Malnutrition (severe): Chronic Evidenced By Suboptimal Energy Intake ( Severe),Weight Loss (Severe), Physical Changes (Severe) Clinical Problem Chronic Disease or Condition Related Malnutrition Etiology Severe protein-calorie malnutrition in the context of chronic disease/debility related to inadequate oral/ energy intake Signs/Symptoms as evidenced by ~10% unintentional weight loss x 6 months, poor PO meeting less than 50% estimated nutrition needs x 6 months, BMI 18.4 and moderate to severe muscle wasting/fat depletion in the face, clavicle, arms and legs Status Active Problem Recommendation Dietitian Recommendations/Changes Will continue liberalized regular diet with consistency alteration as indicated per PARK ATTENDANT. Will continue 120mL ensure plus high protein 4 times per day with medpass. Will add ensure pudding w/ lunch and magic cup w/ dinner for tolerance. Weight / BMI Weight Weight: 42.7 kg Body Mass Index (BMI) 18.3 ABG / Lab / Microbiology Data 01/15/23 11:03 01/15/23 11:03 Laboratory: Laboratory Results - last 24 hr 01/16/23 05:25: Triglycerides 129, Cholesterol 187, LDL Cholesterol 102, VLDL Cholesterol 26, HDL Cholesterol 59 Radiography Diagnostic Testing: Radiology Impression Head/Neck CTA 01/15/23 10:58 IMPRESSION: 1. No demonstrated intra-arterial thrombus or occlusion of the major arteries of the [place] or demonstrated aneurysm or hemodynamically significant stenosis. 2. Mild atherosclerotic plaque right carotid bulb and internal carotid artery. N.B. : The above Results were Read Back by Wilmer Infante MD to Stephanie Gonzalez DO, and understanding confirmed on 01/15/2023 11:54:24 (ET). Electronically Signed: Wilmer Infante MD at 11:55 EDT , ADDENDUM: 01/15/23 1202 IMPRESSION: 1. No demonstrated intra-arterial thrombus or occlusion of the major arteries of the [place] or demonstrated aneurysm or hemodynamically significant stenosis. 2. Mild atherosclerotic plaque right carotid bulb and internal carotid artery. N.B. : The above Results were Read Back by Wilmer Infante MD to Stephanie Gonzalez DO, and understanding confirmed on 01/15/2023 11:54:24 (ET). Electronically Signed: Wilmer Infante MD at 11:55 EDT , Chest X-Ray 01/15/23 11:44 IMPRESSION: Progressive increased markings at the right lung base suggestive of atelectasis superimposed on basilar scarring. Electronically Signed: Olivier Maradiaga MD at 12:02 EDT , Brain MRI 01/15/23 12:26 IMPRESSION: (NOT LISTED IN ORDER OF SIGNIFICANCE) There are no acute intracranial findings. Electronically Signed: Melvin Diamond MD at 16:20 EDT , Echocardiogram 01/15/23 13:01 Interpretation Summary The estimated ejection fraction is 60 %. Mild (1+) mitral valve insufficiency. Trivial aortic valve insufficiency. Ordering Physician: Gonzalez Garza Referring Physician: Howard Zimmerman Chi Performed By: Laurie Villarreal RDCS D/C Instructions Discharge Diet: No restrictions Weight Bearing Status: Full weight bearing Meaningful Use Info Meaningful Use Diagnoses (Choose all that apply): None applicable Discharge Plan Admission Admit Date/Time: 01/15/23 12:19 Primary Reason for Your Visit: Presyncope Attending Provider: Gonzalez Garza Primary Care Provider: Howard Zimmerman Chi Instructions Additional Instructions / Restrictions: It was recommended during your hospitalization that you follow-up with speech therapy as an outpatient, please discuss this with your family practitioner at your office visit Discharge Orders/Prescriptions Prescriptions: Continued ascorbic acid (vitamin C) 500 mg capsule 1,000 mg PO QDAY carbidopa-levodopa 25-100 mg tablet 2 tab PO TID multivitamin tablet 1 tab PO DAILY Metamucil 3.4 gram/5.4 gram powder 1 tsp PO DAILY PRN (Reason: Constipation) Rx Instructions: mix into at least 4 oz water or juice before administering albuterol sulfate 90 mcg/actuation HFA aerosol inhaler 2 puff INHALATION Q4H PRN (Reason: shortness of breath or wheezing) Patient Comments: TAKE 2 PUFFS BY MOUTH EVERY 4 HOURS NEEDED metoprolol tartrate 25 mg tablet 12.5 mg PO Q12H Rx Instructions: TAKE 1/2 TABLET BY MOUTH TWICE A DAY Referrals / Follow Up: Howard Zimmerman Chi, MD [Primary Care Provider] - Within 1 Week Disposition Disposition (needs filled in before D/C Order can be placed): Home, Self Care Charges/Coding Visit Charges Inpatient E&M: 15972 Disch Hosp >30min
[2023-01-16 12:07] VITALS: BP 111/69; PULSE 70; RESP 16; TEMP 36.6; O2SAT 98
--- NOTE | 2023-01-16 13:43 | PHA.DC.MR.R ---
Pharmacy [place] Med Reconciliation Pharmacy Service has performed discharge medication reconciliation for this patient. The patient's discharge medication list was reviewed for discrepancies and discrepancies were resolved. Medications at Discharge Home Medications ascorbic acid (vitamin C) 500 mg capsule 1,000 mg PO QDAY vitamin 12/31/17 multivitamin 1 tab PO DAILY vitamin 11/20/18 psyllium husk 3.4 gram/5.4 gram oral powder (Metamucil) 1 tsp PO DAILY PRN Constipation 11/23/21 carbidopa 25 mg-levodopa 100 mg tablet 2 tab PO TID parkinsons 01/05/23 albuterol sulfate 90 mcg/actuation aerosol inhaler 2 puff inhalation Q4H PRN shortness of breath or wheezing 01/15/23 metoprolol tartrate 25 mg tablet 12.5 mg PO Q12H blood pressure 01/15/23
--- NOTE | 2023-01-16 13:45 | CASEMGMT ---
Patient has order for discharge. RN CM in to discuss needs with patient. Patient states she has cane at home if she would need it. No therapy recommended at discharge. Patient states her son is available to help if needed. Patient states she will follow-up with PCP. Patient had no further questions or concerns at this time.
== END 2023-01-16 13:46 | disposition home or self-care (01) ==
LOC: ED 12:07 → PCU 12:14
PROVIDERS: Admitting Provider Internal Medicine; Emergency Provider Emergency Medicine; PCP Family Medicine Geriatric Medicine; Visit Provider Internal Medicine
DX: R55 Syncope and collapse (principal); G20 Parkinson's disease; R47.81 Slurred speech; I10 Essential (primary) hypertension; R47.1 Dysarthria and anarthria; S59.901A Unspecified injury of right elbow, initial encounter; E78.5 Hyperlipidemia, unspecified; S00.31XA Abrasion of nose, initial encounter; S59.902A Unspecified injury of left elbow, initial encounter; R51.9 Headache, unspecified; Z79.899 Other long term (current) drug therapy; W19.XXXA Unspecified fall, initial encounter
CPT/HCPCS: 36415; 70450; 70496; 70498; 70551; 71045; 80048; 80061; 84484; 85025; 85610; 85730; 90715; 92610; 93005; 93306; 96360; 96361; 97162; 97166; 97802; 99221; 99285; J7030; Q9967; A4216; G0378

== ENCOUNTER → 2023-02-21 | Outpatient (CLI) | payer MEDICARE, SELFPAY ==
[2023-02-21 14:12] LABS: Absolute Lymphocyte Count 6.55 X10^3/uL (0.83-4.51); Absolute Neutrophil Count 7.3 X10^3/uL (2.0-7.7); Basophil# 0.38 X10^3/uL; Basophil% 2.3 % (0-1); Differential Indicated SCAN CRITERIA MET; Eosinophil# 0.37 X10^3/uL; Eosinophils% 2.3 % (0-5); Hematocrit 40.3 % (37-47); Hemoglobin 12.7 g/dL (12.0-15.0); Lymphocyte # 6.55 X10^3/ul (0.83-4.51); Lymphocyte % 40.3 % (19-41); Mean Corp Hgb Conc 31.5 g/dL (32-36); Mean Corpuscular Hgb 29.9 pg (27.0-32.0); Mean Corpuscular Volume 94.8 fL (81-99); Mean Platelet Vol. 9.5 fl (6.2-12.0); Monocyte# 1.55 X10^3/uL; Monocyte% 9.5 % (0-10); NRBC Flagged by Analyzer 0 % (0-5); Neutrophil # 7.33 X10^3/uL (2.7-7.7); Neutrophil % 45.2 % (47-70); POSITIVE DIFFERENTIAL YES; POSITIVE MORPHOLOGY YES; Platelet Count 372 K/mm3 (150-450); RBC Distribution Width CV 13.4 % (11.6-14.6); RBC Distribution Width SD 46.6 fl (35.1-43.9); Red Blood Count 4.25 M/mm3 (4.2-5.4); White Blood Count 16.3 K/mm3 (4.4-11.0)
[2023-02-21 14:36] LABS: Vitamin D,25 Hydroxy 57.4 ng/mL
[2023-02-21 14:42] LABS: AST(SGOT) 28 U/L (15-37); Alanine Aminotransfer ALT/SGPT 13 U/L (13-56); Albumin, Serum 3.6 g/dL (3.2-5.0); Alkaline Phosphatase 110 U/L (45-117); Anion Gap 7 (5-15); BUN 21 mg/dL (7-18); BUN/Creat Ratio 17.1 RATIO (10-20); Calcium,Total 9.1 mg/dL (8.5-10.1); Chloride 102 mmol/L (98-107); Creatinine, Serum 1.23 mg/dL (0.55-1.02); EST Glomerular Filtration Rate 44 mL/min (>60); Est Glom Filt Rate - Afr Amer 53 mL/min (>60); Globulin 3.5 g/dL (2.2-4.2); Glucose 94 mg/dL (74-106); Potassium 3.8 mmol/L (3.5-5.1); Protein, Total 7.1 g/dL (6.4-8.2); Sodium Level 137 mmol/L (136-145); Thyroid Stim Hormone (TSH) 2.25 uIU/mL (0.358-3.74)
[2023-02-22 13:22] LABS: Pathologist Review Reviewed
== END | disposition home or self-care (01) ==
LOC: POLAB3 13:14
PROVIDERS: PCP Family Medicine Geriatric Medicine; Visit Provider Family Medicine Geriatric Medicine
DX: R53.83 Other fatigue (principal); E55.9 Vitamin D deficiency, unspecified
CPT/HCPCS: 36415; 80053; 82306; 84443; 85025

== ENCOUNTER → 2023-03-01 | Outpatient (CLI) | payer MEDICARE, SELFPAY ==
--- NOTE | 2023-03-01 14:32 | CT_ITS ---
STUDY: CT BRAIN WITHOUT CONTRAST REASON FOR EXAM: Female, 87 years old. CLOSED HEAD INJURY RADIATION DOSAGE (If Supplied By Facility): CTDIvol = ( 44.99 ) mGy, DLP = ( 779.24 ) mGycm TECHNIQUE: Transaxial CT imaging of the brain was performed without administration of intravenous contrast material. Individualized dose optimization techniques were used for this CT. COMPARISON: Comparison is made with prior study dated January 15, 2023. FINDINGS: Normal soft tissue structures. Normal calvarium. There is mild cerebral atrophy with widening of the extra-axial spaces and ventricular dilatation. There are areas of decreased attenuation within the white matter tracts of the supratentorial brain, consistent with microvascular disease changes. There are small punctate calcifications of the basal ganglia which are seen in the aging brain as a normal variant. Normal brainstem. Normal cerebellum. There is no intracranial hemorrhage. There are no findings of an acute ischemic infarction. Atherosclerotic calcification of the vertebral arteries and cavernous portions of the internal carotid arteries bilaterally. Normal visualized paranasal sinuses. CT/Brain/Head without Contrast IMPRESSION: Chronic involutional changes of the brain. Electronically Signed: Olivier Maradiaga MD at 14:54 EDT ,
== END | disposition home or self-care (01) ==
LOC: CT 14:31
PROVIDERS: PCP Family Medicine Geriatric Medicine; Referring Provider Family Medicine Geriatric Medicine; Visit Provider Family Medicine Geriatric Medicine
DX: S09.90XA Unspecified injury of head, initial encounter (principal)
CPT/HCPCS: 70450

== ENCOUNTER 2023-03-28 11:00 | Outpatient (RCR) | payer MEDICARE, SELFPAY ==
--- NOTE | 2023-03-07 11:04 | HP.OTEVAL ---
Patient's Visit Information Visit Information Visit Information: ADDIS CARRENO is a 87 year old F, referred to Occupational Therapy by Dr. Drake Beck MD, with a diagnosis of injury of extensor tendon of hand. Date of Evaluation: 02/12/23 Occupational Therapist: Julissa Ash, NICKR/Jarod, CHT Subjective Subjective: Pt is a 87 year old female arrives with a diagnosis R and L middle finger not improving with splints, pt starting wearing splints on September 15. At night pt has a hard dorsal splint she wears and fingers are in slight flexion. Pt participated in therapy at [facility] 2-4 week intervals for few months, pt unable to recall. Pt reports no pain with anything. Pt reports R RF and bilateral MF minimal improvement. Pt reports arthritic neck and back, when severe take 2 extra strength Tylenol. Pt is left hand dominant. ADLs Fasteners: Buttons, Zippers and Snaps Comments: takes effort Kitchen: Chop with knife, Open jars and Open bottle caps Comments: Cleaning in general is hard to do Comments: Pt can't fill up the watering can as much as she usually did Comments: Everything Pt doesn't cook a lot Pt has tool that helps open jars Objective Objective/Observation: The extensor tendon continue to ulnar subluxation when she attempts full finger flexion and extension R LF fingers R ring finger L MF ring finger ROM MP: R IF -35/ MF -30 RF-28/ LF-; L IF +1 MF- RF0 LF- PIP: R IF - MF+ RF+ LF-; L IF - MF 0 RF 0 LF- ROM Comments: shoulder deformity bilateral CMC's Pt able to make a fist when out of braces. Noted extensor tendon subluxation on MCP of right RF and left MF Pt demonstrates wrist WFL Strength Change House Attendant: R 35# L 44# Lateral Pinch: R 8# L 8# Tripod Pinch: R 8# L 6# Strength Comments: pt demo good strength for bilateral RA/OA deformities Sensation Sensation Comments: denies sensation change Nine Hole Peg Right: 23.38 sec Left: 24.87sec Quick DASH-Disab of Arm,Shoulder& Hand Quick DASH Score: 35.0000 Goals Goal:100% adherence to protocol: Yes Comment: weaning out of brace Goal:No pain with affected hand use: Yes Goal:Full use of affected hand in daily activities including work: Yes Other Goal: Pt will demonstrate understanding and verbalize 3 techniques of joint protection and adaptive equipment to decrease joint stress while performing ADL tasks by d/c. Pt to demo overall increased indep in ADL/IADL tasks by decreased total DASH score by 10 points by discharge. Rehabilitation General Assessment: Pt seen for OT eval to ed pt with a dx of extensor tendon injury. Pt comes with braces which is supporting her recovery. 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 Pt will benefit from skilled OT 1x for 4 weeks to safely wean pt out of braces. Therapist ed pt in weaning brace for 1 hour in AM, afternoon, and PM to increase ability to return PLOF prior to injury and decrease repetitive open/close of hand. Pt verbalizes understanding and agrees to OT POC. Therapy session was directly supervised and doc. approved by Julissa Ash OTR/L,CHT. Rehabilitation Potential: Fair Anticipated Interventions Anticipated Interventions: Triggerpoint Release, Modalities, Orthoses, Joint Protection/Energy Conservation, Ergonomic Education, Education re assistive Equipment, Education re Diagnosis and Home Program Other Interventions: US is not covered Visit Plan Frequency: 1x/Week Duration: 6 Weeks TEXT: Thank you for the opportunity to evaluate your patient. For Medicare and Medicare HMO plans, please review the plan of care and approve it. It will need to be FAXED BACK to us at [phone] for Medicare purposes. Please let me know if there are questions or concerns regarding this plan of care. Physician Signature: Date:
--- NOTE | 2023-03-14 11:56 | HP.OTREVAL ---
Re-Evaluation Intro: Dr. Drake Beck MD, It has been my pleasure to treat ADDIS CARRENO over the last 4 visits for injury of extensor tendon of hand. Please see the progress note below for an update on the occupational therapy plan of care! Subjective Subjective: pt arrives with bilateral ulnar drift braces on- pt states she is keeping them on most of the day- trying to do an hour off in AM and in the afternoon but does not always get that in - still has some snapping of tendons Objective Objective/Function: left RF continues to have extensor tend subluxation at MCP region right RF pt states catch at PIP on right RF pt to continue with night braces use of ulnar drift braces to prevent full composite fist and extensor tendon from subluxation over MCPs. Plan Plan Frequency: 1x/Week Duration: 6 Weeks Plan: pt to return for follow up Goals Goals Patient Goals: Improve Fine Motor Skills, Use Hand/Wrist/Arm Normally Again and Resume Hobbies Goal:100% adherence to protocol: Yes Goal:No pain with affected hand use: Yes Goal:Full use of affected hand in daily activities including work: Yes Other Goal: Pt will demonstrate understanding and verbalize 3 techniques of joint protection and adaptive equipment to decrease joint stress while performing ADL tasks by d/c. Pt to demo overall increased indep in ADL/IADL tasks by decreased total DASH score by 10 points by discharge. Anticipated Interventions Anticipated Interventions Anticipated Interventions: Triggerpoint Release, Modalities, Orthoses, Joint Protection/Energy Conservation, Ergonomic Education, Education re assistive Equipment, Education re Diagnosis and Home Program Other Interventions: US is not covered Re-Evaluation Ending Re-evaluation ending: Please do not hesitate to contact me at [phone] by phone or if you have questions or concerns regarding this new plan of care! Sincerely, Julissa Ash, NICKR/L, CHT
== END 2023-03-28 19:00 | disposition home or self-care (01) ==
LOC: OT 11:00
PROVIDERS: PCP Family Medicine Geriatric Medicine; Referring Provider Orthopaedic Surgery; Visit Provider Orthopaedic Surgery
DX: S66.909 Unspecified injury of unspecified muscle, fascia and tendon at wrist and hand level, unspecified hand (principal)
CPT/HCPCS: 97140; 97166; 97530

== ENCOUNTER → 2023-04-02 | Outpatient (CLI) | payer MEDICARE, SELFPAY ==
[2023-04-02 16:28] LABS: Absolute Lymphocyte Count 8.16 X10^3/uL (0.83-4.51); Absolute Neutrophil Count 7.1 X10^3/uL (2.0-7.7); Basophil# 0.43 X10^3/uL; Basophil% 2.5 % (0-1); Differential Indicated SCAN CRITERIA MET; Eosinophil# 0.16 X10^3/uL; Eosinophils% 0.9 % (0-5); Hematocrit 38.4 % (37-47); Hemoglobin 12.1 g/dL (12.0-15.0); Lymphocyte # 8.16 X10^3/ul (0.83-4.51); Lymphocyte % 46.9 % (19-41); Mean Corp Hgb Conc 31.5 g/dL (32-36); Mean Corpuscular Hgb 29.7 pg (27.0-32.0); Mean Corpuscular Volume 94.1 fL (81-99); Mean Platelet Vol. 9.8 fl (6.2-12.0); Monocyte# 1.45 X10^3/uL; Monocyte% 8.3 % (0-10); NRBC Flagged by Analyzer 0 % (0-5); Neutrophil # 7.13 X10^3/uL (2.7-7.7); POSITIVE DIFFERENTIAL YES; POSITIVE MORPHOLOGY YES; Platelet Count 349 K/mm3 (150-450); RBC Distribution Width CV 13.6 % (11.6-14.6); Red Blood Count 4.08 M/mm3 (4.2-5.4); White Blood Count 17.4 K/mm3 (4.4-11.0)
[2023-04-02 16:39] LABS: ALB/GLOB Ratio 1.1 RATIO (0.9-2.4); AST(SGOT) 25 U/L (15-37); Alanine Aminotransfer ALT/SGPT 8 U/L (13-56); Albumin, Serum 3.5 g/dL (3.2-5.0); Alkaline Phosphatase 91 U/L (45-117); Anion Gap 5 (5-15); BUN 22 mg/dL (7-18); BUN/Creat Ratio 18.3 RATIO (10-20); Chloride 103 mmol/L (98-107); EST Glomerular Filtration Rate 45 mL/min (>60); Est Glom Filt Rate - Afr Amer 55 mL/min (>60); Globulin 3.3 g/dL (2.2-4.2); Glucose 102 mg/dL (74-106); Potassium 4.1 mmol/L (3.5-5.1); Protein, Total 6.8 g/dL (6.4-8.2); Sodium Level 137 mmol/L (136-145)
== END | disposition home or self-care (01) ==
LOC: POLAB3 15:35
PROVIDERS: PCP Family Medicine Geriatric Medicine; Visit Provider Family Medicine Geriatric Medicine
DX: G20.A1 Parkinson's disease without dyskinesia, without mention of fluctuations (principal); I95.1 Orthostatic hypotension
CPT/HCPCS: 36415; 80053; 85025

== ENCOUNTER → 2023-04-23 | Outpatient (CLI) | payer MEDICARE, SELFPAY ==
--- NOTE | 2023-04-23 13:14 | CT_ITS ---
STUDY: CT BRAIN WITHOUT CONTRAST REASON FOR EXAM: Female, 87 years old. UNSPECIFIED INJURY OF HEAD, INITIAL ENCOUNTER RADIATION DOSAGE (If Supplied By Facility): CTDIvol = ( 47.06 ) mGy, DLP = ( 907.97 ) mGycm TECHNIQUE: Transaxial CT imaging of the brain was performed without administration of intravenous contrast material. Individualized dose optimization techniques were used for this CT. COMPARISON: Comparison is made with prior study dated March 01, 2023. FINDINGS: Normal soft tissue structures. Normal calvarium. There is mild cerebral atrophy with widening of the extra-axial spaces and ventricular dilatation. There are areas of decreased attenuation within the white matter tracts of the supratentorial brain, consistent with microvascular disease changes. There are small punctate calcifications of the basal ganglia which are seen in the aging brain as a normal variant. Normal brainstem. Normal cerebellum. There is no intracranial hemorrhage. There are no findings of an acute ischemic infarction. Atherosclerotic calcification of the cavernous portions of the internal carotid arteries bilaterally. Normal visualized paranasal sinuses. CT/Brain/Head without Contrast IMPRESSION: Chronic involutional changes of the brain. Stable examination. Electronically Signed: Olivier Maradiaga MD at 15:00 EST ,
== END | disposition home or self-care (01) ==
LOC: CT 13:13
PROVIDERS: PCP Family Medicine Geriatric Medicine; Referring Provider Family Medicine Geriatric Medicine; Visit Provider Family Medicine Geriatric Medicine
DX: S09.90XA Unspecified injury of head, initial encounter (principal)
CPT/HCPCS: 70450

== ENCOUNTER → 2023-05-03 | Outpatient (CLI) | payer MEDICARE, SELFPAY ==
--- NOTE | 2023-05-03 16:00 | RAD_ITS ---
STUDY: X-RAY - RIGHT HUMERUS REASON FOR EXAM: Female, 87 years old. PAIN TECHNIQUE: 2 view(s) of the humerus. COMPARISON: None. 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 There is no demonstrated fracture or osseous destructive process. There is no demonstrated soft tissue abnormality. RAD/Humerus min 2 Views IMPRESSION: Degenerative changes of the glenohumeral joint. Electronically Signed: Olivier Maradiaga MD at 12:32 EST ,
--- NOTE | 2023-05-03 16:00 | RAD_ITS ---
STUDY: X-RAY - RIGHT HAND REASON FOR EXAM: Female, 87 years old. PAIN TECHNIQUE: 3 view(s) of the hand. COMPARISON: None. FINDINGS: Normal radiocarpal articulation. Normal distal radioulnar joint. Normal visualized carpal bones. Normal carpal articulations There is degenerative arthrosis of the carpometacarpal (CMC) articulation of the thumb. Normal second through fifth carpometacarpal joints. Normal metacarpi. Normal metacarpophalangeal joint of the thumb. Normal interphalangeal joint of the thumb. Normal proximal and distal phalanges of the thumb. Normal metacarpophalangeal joints of the second through fifth fingers. There is mild articular joint space narrowing of the proximal and distal interphalangeal joints of the second through fifth fingers, but without erosive changes or periarticular soft tissue swelling. Normal phalanges of the second through fifth fingers. The soft tissue structures are unremarkable. RAD/Hand 2 Views IMPRESSION: Mild degree of arthrosis of the proximal and distal interphalangeal joints as well as the first carpometacarpal joint. Electronically Signed: Olivier Maradiaga MD at 12:23 EST ,
--- NOTE | 2023-05-03 16:00 | RAD_ITS ---
STUDY: X-RAY - RIGHT RADIUS AND ULNA REASON FOR EXAM: Female, 87 years old. PAIN. No evidence of trauma. TECHNIQUE: 2 view(s) of the forearm. COMPARISON: None. FINDINGS: There is no demonstrated soft tissue swelling. Normal visualized radius. Normal visualized ulna. RAD/Forearm 2 Views IMPRESSION: Normal x-ray examination of the radius and ulna. Electronically Signed: Olivier Maradiaga MD at 12:21 EST ,
--- NOTE | 2023-05-03 16:00 | RAD_ITS ---
STUDY: X-RAY - SACRUM/COCCYX REASON FOR EXAM: Female, 87 years old. Pelvic pain. TECHNIQUE: 3 view(s) of the sacrum and coccyx were obtained. COMPARISON: Comparison is made with prior study dated April 14, 2022. 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 Normal visualized sacral ala and fused sacral bodies. Normal sacrococcygeal junction with a normal angulation. Normal coccygeal segments. Narrowing of the symphysis pubis. Degenerative changes of the visualized lumbar vertebrae. Phleboliths. RAD/Sacrum-Coccyx min 2 Views IMPRESSION: Degenerative changes. Electronically Signed: Olivier Maradiaga MD at 13:09 EST ,
--- NOTE | 2023-05-03 16:00 | RAD_ITS ---
STUDY: X-RAY - PELVIS AND LEFT HIP REASON FOR EXAM: Female, 87 years old. PAIN TECHNIQUE: 3 views of the pelvis and hip. COMPARISON: None. FINDINGS: Moderate amount of fecal material is seen in the colon. There are multiple calcified phleboliths. There is narrowing with cortical sclerosis and osteophyte formation of the sacroiliac joint consistent with degenerative osteoarthritic changes. Normal bilateral superior and inferior pubic rami. There are degenerative changes of the pubic symphysis with articular narrowing and sclerosis. Normal bilateral ischial tuberosities. Normal visualized femoral head. Normal acetabulum. Normal hip joint. RAD/HIP, UNI W/ Pelvis 2-3 Views IMPRESSION: Degenerative changes of the symphysis pubis and the bilateral sacroiliac joints. Electronically Signed: Olivier Maradiaga MD at 12:24 EST ,
== END | disposition home or self-care (01) ==
LOC: RAD 15:50
PROVIDERS: PCP Family Medicine Geriatric Medicine; Referring Provider Family Medicine Geriatric Medicine; Visit Provider Family Medicine Geriatric Medicine
DX: M53.3 Sacrococcygeal disorders, not elsewhere classified (principal); M79.601 Pain in right arm; M25.552 Pain in left hip
CPT/HCPCS: 72220; 73060; 73090; 73120; 73502

== ENCOUNTER → 2023-05-08 | Outpatient (CLI) | payer MEDICARE, SELFPAY | END | disposition home or self-care (01) | PROVIDERS: PCP Family Medicine Geriatric Medicine; Referring Provider Ophthalmology; Visit Provider Ophthalmology | DX: Z00.00 Encounter for general adult medical examination without abnormal findings (principal) | CPT/HCPCS: 36415 ==

== ENCOUNTER → 2023-05-14 | Outpatient (CLI) | payer MEDICARE, SELFPAY ==
--- NOTE | 2023-05-14 15:18 | RAD_ITS ---
STUDY: X-RAY - ABDOMEN/PELVIS REASON FOR EXAM: Female, 87 years old. Fecal impaction. TECHNIQUE: Single AP view of the abdomen / pelvis on 2 images. COMPARISON: None. FINDINGS: Normal visualized lung bases. Normal bowel gas pattern with air seen to the rectum. No disproportionate dilatation of bowel. Moderate amount of feces in the colon. The visualized liver, spleen and kidneys are grossly normal in size and morphology. Normal soft tissue structures. Normal visualized osseous structures. RAD/Abd Inc Decub and/or Erect IMPRESSION: Moderate amount of feces in the colon. No acute abnormality. Electronically Signed: Benja Li MD at 12:05 EST ,
[2023-05-14 17:22] LABS: Absolute Lymphocyte Count 6.75 X10^3/uL (0.83-4.51); Absolute Neutrophil Count 3.2 X10^3/uL (2.0-7.7); Basophil# 0.33 X10^3/uL; Basophil% 2.8 % (0-1); Eosinophil# 0.04 X10^3/uL; Eosinophils% 0.3 % (0-5); Hematocrit 40.6 % (37-47); Hemoglobin 12.8 g/dL (12.0-15.0); Lymphocyte # 6.75 X10^3/ul (0.83-4.51); Lymphocyte % 57.1 % (19-41); Mean Corp Hgb Conc 31.5 g/dL (32-36); Mean Corpuscular Volume 95.3 fL (81-99); Mean Platelet Vol. 10.9 fl (6.2-12.0); Monocyte# 1.49 X10^3/uL; Monocyte% 12.6 % (0-10); NRBC Flagged by Analyzer 0 % (0-5); Neutrophil # 3.17 X10^3/uL (2.7-7.7); Neutrophil % 26.9 % (47-70); POSITIVE DIFFERENTIAL YES; POSITIVE MORPHOLOGY YES; Platelet Count 333 K/mm3 (150-450); RBC Distribution Width CV 14.2 % (11.6-14.6); Red Blood Count 4.26 M/mm3 (4.2-5.4); White Blood Count 11.8 K/mm3 (4.4-11.0)
[2023-05-14 17:26] LABS: Differential Indicated SCAN CRITERIA MET
[2023-05-14 17:34] LABS: Anion Gap 8 (5-15); BUN 21 mg/dL (7-18); BUN/Creat Ratio 15.8 RATIO (10-20); Calcium,Total 8.5 mg/dL (8.5-10.1); Chloride 103 mmol/L (98-107); Creatinine, Serum 1.33 mg/dL (0.55-1.02); EST Glomerular Filtration Rate 40 mL/min (>60); Est Glom Filt Rate - Afr Amer 49 mL/min (>60); Glucose 112 mg/dL (74-106); Potassium 4.1 mmol/L (3.5-5.1); Sodium Level 139 mmol/L (136-145)
[2023-05-14 17:39] LABS: Differential Comment SCANNED
== END | disposition home or self-care (01) ==
PROVIDERS: PCP Family Medicine Geriatric Medicine; Referring Provider Family Medicine Geriatric Medicine; Visit Provider Family Medicine Geriatric Medicine
DX: R53.83 Other fatigue (principal); K56.41 Fecal impaction; N39.0 Urinary tract infection, site not specified
CPT/HCPCS: 36415; 74019; 80048; 85025; 87086

== ENCOUNTER → 2023-05-15 | Outpatient (CLI) | payer MEDICARE, SELFPAY | END | disposition home or self-care (01) | PROVIDERS: PCP Family Medicine Geriatric Medicine; Referring Provider Family Medicine Geriatric Medicine; Visit Provider Family Medicine Geriatric Medicine | DX: R68.83 Chills (without fever) (principal) | CPT/HCPCS: 87635; 87804; 87807 ==

== ENCOUNTER → 2023-05-28 | Outpatient (CLI) | payer MEDICARE, SELFPAY ==
[2023-05-28 15:37] LABS: Absolute Lymphocyte Count 7.42 X10^3/uL (0.83-4.51); Absolute Neutrophil Count 5.4 X10^3/uL (2.0-7.7); Basophil# 0.42 X10^3/uL; Basophil% 2.9 % (0-1); Eosinophil# 0.21 X10^3/uL; Eosinophils% 1.4 % (0-5); Hematocrit 38.7 % (37-47); Hemoglobin 12.1 g/dL (12.0-15.0); Lymphocyte # 7.42 X10^3/ul (0.83-4.51); Lymphocyte % 50.7 % (19-41); Mean Corp Hgb Conc 31.3 g/dL (32-36); Mean Corpuscular Hgb 29.7 pg (27.0-32.0); Mean Corpuscular Volume 94.9 fL (81-99); Mean Platelet Vol. 10.3 fl (6.2-12.0); Monocyte% 8.2 % (0-10); NRBC Flagged by Analyzer 0 % (0-5); Neutrophil # 5.35 X10^3/uL (2.7-7.7); Neutrophil % 36.6 % (47-70); POSITIVE DIFFERENTIAL YES; Platelet Count 425 K/mm3 (150-450); RBC Distribution Width SD 48.9 fl (35.1-43.9); Red Blood Count 4.08 M/mm3 (4.2-5.4); White Blood Count 14.6 K/mm3 (4.4-11.0)
[2023-05-28 15:48] LABS: Differential Indicated SCAN CRITERIA MET
[2023-05-28 16:04] LABS: Vitamin D,25 Hydroxy 46.6 ng/mL
[2023-05-28 16:22] LABS: AST(SGOT) 31 U/L (15-37); Alanine Aminotransfer ALT/SGPT 14 U/L (13-56); Albumin, Serum 3.4 g/dL (3.2-5.0); Alkaline Phosphatase 96 U/L (45-117); Anion Gap 4 (5-15); BUN 24 mg/dL (7-18); BUN/Creat Ratio 20.9 RATIO (10-20); Calcium,Total 8.8 mg/dL (8.5-10.1); Chloride 104 mmol/L (98-107); Creatinine, Serum 1.15 mg/dL (0.55-1.02); EST Glomerular Filtration Rate 47 mL/min (>60); Est Glom Filt Rate - Afr Amer 57 mL/min (>60); Globulin 3.5 g/dL (2.2-4.2); Glucose 108 mg/dL (74-106); Potassium 4.2 mmol/L (3.5-5.1); Protein, Total 6.9 g/dL (6.4-8.2); Sodium Level 139 mmol/L (136-145); Thyroid Stim Hormone (TSH) 1.37 uIU/mL (0.358-3.74)
== END | disposition home or self-care (01) ==
LOC: POLAB3 14:11
PROVIDERS: PCP Family Medicine Geriatric Medicine; Visit Provider Family Medicine Geriatric Medicine
DX: R53.83 Other fatigue (principal); E55.9 Vitamin D deficiency, unspecified
CPT/HCPCS: 36415; 80053; 82306; 84443; 85025

== ENCOUNTER 2023-06-28 12:17 | Observation (INO) | payer MEDICARE, SELFPAY ==
[2023-06-28] VITALS (19 sets, daily range): BP systolic 98–198; BP diastolic 62–116; PULSE 66–118; RESP 13–27; TEMP 36.2–36.5; O2SAT 95–98; BMI 17.0; BMI 16.6
--- NOTE | 2023-06-28 12:34 | EKG12_ITS ---
Test Reason : STROKE Blood Pressure : / mmHG Vent. Rate : 082 BPM Atrial Rate : 000 BPM P-R Int : 000 ms QRS Dur : 084 ms QT Int : 388 ms P-R-T Axes : 000 100 063 degrees QTc Int : 453 ms Sinus rhythm with PAC's Confirmed by REY MASON, DARIO ([id number]), managing editor LILIAN VILLEGAS ([id number]) on 06/29/2023 7:17:46 AM Referred By: Confirmed By:DARIO LE MD
--- NOTE | 2023-06-28 12:34 | CT_ITS ---
STUDY: CT HEAD STROKE PROTOCOL W/O CONTRAST INJECTION REASON FOR EXAM: Female, 88 years old. Neuro deficit, acute, stroke suspected RADIATION DOSAGE (If Supplied By Facility): CTDIvol = ( 44.99 ) mGy, DLP = ( 12.98 ) mGycm TECHNIQUE: Transaxial CT imaging of the brain was performed without administration of intravenous contrast material. Individualized dose optimization techniques were used for this CT. COMPARISON: Comparison is made with prior study dated April 23, 2003. FINDINGS: Normal soft tissue structures. Normal calvarium. There is mild cerebral atrophy with widening of the extra-axial spaces and ventricular dilatation. There are areas of decreased attenuation within the white matter tracts of the supratentorial brain, consistent with microvascular disease changes. There are small punctate calcifications of the basal ganglia which are seen in the aging brain as a normal variant. Normal brainstem. There is mild cerebellar atrophy. There is no intracranial hemorrhage. There are no findings of an acute ischemic infarction. Atherosclerotic calcification of the cavernous portions of the internal carotid arteries bilaterally. Normal visualized paranasal sinuses. ASPECT score: 10 CT/STROKE Brain/Head without Cont IMPRESSION: Chronic involutional changes of the brain. N.B. : The above Results were Read Back by Olivier Maradiaga MD to Dr Ezra MD, and understanding confirmed on 06/28/2023 12:55:52 (ET). Electronically Signed: Olivier Maradiaga MD at 12:57 EST ,
--- NOTE | 2023-06-28 12:34 | CT_ITS ---
We are attempting to reach an attending provider to discuss findings. An addendum with communication details will be sent when the communication is complete. STUDY: CTA HEAD AND NECK WITH CONTRAST REASON FOR EXAM: Female, 88 years old. Neuro deficit, acute, stroke suspected RADIATION DOSAGE (If Supplied By Facility): CTDIvol = ( 21.26 ) mGy, DLP = ( 496.88 ) mGycm TECHNIQUE: CT angiography was performed with a multi-detector CT scanner. Data acquisition was obtained from the skull base through the vertex following intravenous administration of IV 100mL Isovue-[id number]. MIP images were reconstructed from the axial data set. Post-processing of the angiographic images was performed, with multiplanar reformation and 3D reconstruction. Individualized dose optimization techniques were used for this CT. COMPARISON: Comparison is made with prior study dated January 15, 2023. FINDINGS: Normal bilateral petrous carotid arteries. There is calcified plaque formation of the right cavernous carotid artery, without a cross-sectional luminal stenosis. There is calcified plaque formation of the left cavernous carotid artery, without a cross-sectional luminal stenosis. Normal right A1 segments of the anterior cerebral artery. Normal left A1 segments of the anterior cerebral artery. Normal intact anterior communicating artery (ACOM). Normal bilateral A2 segments of the anterior cerebral arteries. Normal right M1 and M2 segments of the middle cerebral arteries, with a normal M1 bifurcation. Normal left M1 and M2 segments of the middle cerebral arteries, with a normal M1 bifurcation. Normal right posterior communicating artery (PCOM). Normal left posterior communicating artery (PCOM). Normal bilateral vertebral arteries. Normal basilar artery with a normal basilar bifurcation. The visualized bilateral superior cerebellar (SCA) arteries are normal. Normal bilateral P1, P2 and visualized P3 segments of the posterior cerebral arteries. There is no demonstrated aneurysm of the lime of [place]. There is no demonstrated abnormality of the visualized brain. AORTIC ARCH: There is atherosclerotic calcific plaque formation of the aortic arch and great vessels arising from the aortic arch, without a hemodynamically significant stenosis. There is a normal origin of the brachiocephalic, left common carotid, and left subclavian arteries. Normal origins of the brachiocephalic, left common carotid, and left subclavian arteries. Atherosclerotic plaque formation at the origin of the left subclavian artery. RIGHT CAROTID ARTERIES: Normal right common carotid artery (CCA). Normal right common carotid bulb. There is mild atherosclerotic plaque formation of the origin of the right internal carotid artery with less than 50% cross sectional diameter stenosis. Normal visualized cervical portion of the right internal carotid artery. Normal origin of the right external carotid artery (ECA). LEFT CAROTID ARTERIES: Normal left common carotid artery (CCA). Normal left common carotid bulb. There is mild atherosclerotic plaque formation of the origin of the left internal carotid artery with less than 50% cross sectional diameter stenosis. Normal visualized cervical portion of the left internal carotid artery. Normal origin of the left external carotid artery (ECA). VERTEBRAL ARTERIES: Normal bilateral vertebral arteries. CT/STROKE CTA Head AND Neck W/Con IMPRESSION: Mild degree of chronic calcific plaques at the origin of both the right and left internal carotid arteries. Electronically Signed: Olivier Maradiaga MD at 13:09 EST ,
[2023-06-28 12:41] LABS: Bedside Glucose 78 mg/dL (74-106)
--- NOTE | 2023-06-28 12:41 | ED.RN ---
1232 THIS RN DID FIRST CALL TO [facility] STROKE LINE
--- NOTE | 2023-06-28 12:52 | ED.RN ---
Dr. Jonathon Rodríguez from [facility] on telestroke
--- NOTE | 2023-06-28 12:57 | ED.VIS.STROK ---
HPI History of Present Illness Chief Complaint: Confusion Informant: patient and family Narrative Narrative: Patient presents with son secondary to confusion and difficulty with speech. She reportedly was last seen by a friend and her son at 8:30 PM last evening and was normal. When caregiver arrived this morning they noted patient seemed to have difficulty speaking. Patient states she felt like she just cannot get her words out and she felt that way upon waking this morning. She denies any fall or injury. Caregiver called son who presented to the home and he noted that she was having difficulty with her speech as well. Symptoms do seem to be improving at this time. [facility] Medical History (Updated 06/28/23 @ 13:[address] Myrna Munguia MD) History of atrial myxoma Hyperlipidemia Hypertension Lymphoma Nonrheumatic mitral (valve) prolapse Nonrheumatic mitral valve regurgitation Nonrheumatic tricuspid valve regurgitation Parkinsons disease Parotid tumor Premature atrial contractions Premature ventricular contraction Home Medications multivitamin 1 tab PO DAILY vitamin 11/20/18 [History Last Taken 01/15/23] carbidopa 25 mg-levodopa 100 mg tablet 2 tab PO TID parkinsons 01/05/23 [History Last Taken 01/15/23] albuterol sulfate 90 mcg/actuation aerosol inhaler 2 puff inhalation Q4H PRN shortness of breath or wheezing 01/15/23 [History Last Taken Unknown] midodrine 5 mg tablet 5 mg PO TID 06/28/23 [History Last Taken 06/28/23] Allergy/AdvReac Type Severity Reaction Status Date / Time Penicillins Allergy Rash Verified 06/28/23 12:19 tramadol AdvReac Other Verified 06/28/23 12:19 Surgical History History of laparoscopic cholecystectomy History of splenectomy Social History Smoking Status: Never smoker alcohol intake: current details: occasional substance use type: does not use ROS ROS ED Constitutional Constitutional ED: Denies chills or fever(s) Eyes Eyes: Denies discharge from eye(s) ENT ENT ED: Denies discharge from eye(s), rhinorrhea or sore throat Cardiovascular Cardiovascular: Denies chest pain or palpitations Respiratory/Chest Respiratory/Chest: Denies cough or dyspnea Gastrointestinal Gastrointestinal: Denies abdominal pain, nausea or vomiting Genitourinary Genitourinary ED: Denies dysuria Musculoskeletal Musculoskeletal: Denies back pain or extremity pain Integumentary Denies Abrasions or rash Neurologic Neurologic: Reports other Details: Difficulty speaking ; Denies headache(s) or weakness Psychiatric Psychiatric: Denies anxiety or depression Allergic/Immunologic Allergic/Immunologic ED: Denies lip swelling or urticaria EXAM Physical Exam Const Vital Signs: 06/28/23 12:17 06/28/23 12:50 06/28/23 12:55 Temperature 97.2 F L Temperature Source Temporal Pulse Rate 118 H 70 72 Respiratory Rate 18 17 21 H Blood Pressure 166/91 H 185/109 H 185/109 H Blood Pressure Mean 116 134 134 Pulse Ox 96 95 97 Oxygen Delivery Method Room Air Room Air Room Air 06/28/23 12:59 Temperature Temperature Source Pulse Rate Respiratory Rate Blood Pressure Blood Pressure Mean Pulse Ox 97 Oxygen Delivery Method Room Air Positive well nourished and well developed General Appearance ED: well developed HEENT Reports moist mucous membranes Eyes EOMs intact bilaterally Chest Wall inspection of chest normal and palpation of chest normal Resp normal respiratory effort and clear to auscultation bilaterally Cardio Rate: regular rate Rhythm: regular rhythm GI soft to palpation and non-tender Neuro oriented x3 NIHSS NIHSS Initial: 1a Level of Consciousness: 0 1b LOC Questions (Score 2 if aphasic/stupor): 0 1c LOC Commands (Only score 1st attempt): 0 2 Best Gaze (If aphasic, use reflexive mvmts.): 0 3 Visual: 0 4 Facial Palsy: 0 5 Motor Arm Right (UN = amputation/fusion): 0 5 Motor Arm Left: 0 6 Motor Leg Right: 0 6 Motor Leg Left: 0 8 Sensory (Aphasia/stupor=0 or 1, coma=2): 0 9 Best Language: 0 10 Dysarthria (mute, coma=2, intubated=UN): 0 11 Extinction and Inattention (only scored if +): 0 Total Score: 0 MDM MDM MDM Narrative Medical decision making narrative: Triage nurse notified us of the patient's current symptoms and stroke alert was activated. Patient sent to CT and I met the patient in her exam room upon returning. Patient had been placed on home coordinator. IV line initiated. Labwork obtained to evaluate for leukocytosis, anemia, and electrolyte derangement. Chest x-ray obtained to evaluate for acute lung pathology, cardiac size, or mediastinal abnormality. EKG obtained to evaluate for cardiac arrhythmia/ischemia. Patient has had a CT of the head as well as a CTA of the head and neck performed. As I am starting to examine the patient the stroke neurologist is available for evaluation. We complete her neurologic exam together and she has no deficits noted at this time. Noncontrast head CT reveals chronic changes with no acute findings. Patient's lab work and remainder of workup will be reviewed. Plan would be admission for remainder of stroke workup. History & Record Review Discussion w/independent historian: Patient and Family Additional record(s) reviewed:: Prior labs Lab Data Attestation: I reviewed the patient's lab results. Labs: Laboratory Results - last 24 hr 06/28/23 06/28/23 12:22 12:40 WBC 14.4 H RBC 4.30 Hgb 12.8 Hct 40.2 MCV 93.5 MCH 29.8 MCHC 31.8 L RDW Std Deviation 48.0 H RDW Coeff of [place] 14.0 Plt Count 357 MPV 9.6 Immature Gran % (Auto) 0.300 Neut % (Auto) 33.4 L Lymph % (Auto) 53.0 H [place] % (Auto) 8.4 Eos % (Auto) 2.3 Baso % (Auto) 2.6 H Absolute Neuts (auto) 4.8 Absolute Lymphs (auto) 7.62 H Nucleated RBC % 0 PT 12.6 INR 1.0 APTT 27.6 Sodium 137 Potassium 4.1 Chloride 103 Carbon Dioxide 29.0 Anion Gap 5 BUN 24 H Creatinine 1.02 Estim Creat Clear Calc 25.91 Est GFR (MDRD) Af Amer 66 Est GFR (MDRD) Non-Af 55 L BUN/Creatinine Ratio 23.5 H Glucose 91 Calcium 9.2 Troponin I High Sens 6 POC Glucose 78 Radiography Chest X-Ray - ED: 1 View, Read by ED Physician and Chronic Changes Diagnostic Testing: Clinical Impression(s) from Imaging Studies Brain CT 06/28/23 12:34 IMPRESSION: Chronic involutional changes of the brain. N.B. : The above Results were Read Back by Olivier Maradiaga MD to Dr Ezra MD, and understanding confirmed on 06/28/2023 12:55:52 (ET). Electronically Signed: Olivier Maradiaga MD at 12:57 EST , ADDENDUM: 06/28/23 1304 IMPRESSION: Chronic involutional changes of the brain. N.B. : The above Results were Read Back by Olivier Maradiaga MD to Dr Ezra MD, and understanding confirmed on 06/28/2023 12:55:52 (ET). Electronically Signed: Olivier Maradiaga MD at 12:57 EST , Head/Neck CTA 06/28/23 12:34 IMPRESSION: Mild degree of chronic calcific plaques at the origin of both the right and left internal carotid arteries. Electronically Signed: Olivier Maradiaga MD at 13:09 EST , ADDENDUM: 06/28/23 1316 IMPRESSION: Mild degree of chronic calcific plaques at the origin of both the right and left internal carotid arteries. N.B. : The above Results were Read Back by Olivier Maradiaga MD to Dr Ezra MD, and understanding confirmed on 06/28/2023 13:09:44 (ET). Electronically Signed: Olivier Maradiaga MD at 13:09 EST , EKG Initial EKG: Attestation: I personally reviewed and interpreted this EKG as follows: Interpretation: Sinus Rhythm (Sinus 82 with PACs. No acute ischemia.) Treatment and Re-Evaluation Narrative: CBC was a white count of 14.4 with normal differential. Patient has a history of chronic leukocytosis with white counts in the computer anywhere from 12-17 on prior visits. Chemistry studies are unremarkable. Troponin is normal at 6. BGT on arrival was 78. Portable chest x-ray per my interpretation was chronic changes. No focal infiltrate. CT scan of the head reveals chronic changes with no acute findings. CTA of the head and neck reveals mild degree of chronic calcific plaques at the origin of both the right and left internal carotids. EKG appears to be atrial fibrillation with PACs. Test results discussed with patient and son at bedside. [facility] neurologist recommended admission for remainder of stroke workup. I will speak with hospitalist. Discharge Plan Triage Chief Complaint: Confusion ED Provider: Myrna Munguia Dx/Rx/DC Orders Clinical Impression: Brain TIA Prescriptions: No Action carbidopa-levodopa 25-100 mg tablet 2 tab PO TID multivitamin tablet 1 tab PO DAILY albuterol sulfate 90 mcg/actuation HFA aerosol inhaler 2 puff INHALATION Q4H PRN (Reason: shortness of breath or wheezing) Patient Comments: TAKE 2 PUFFS BY MOUTH EVERY 4 HOURS NEEDED Rx Instructions: only uses rarely (1-2 times per year) midodrine 5 mg tablet 5 mg PO TID Patient Comments: TAKE 1 TABLET BY MOUTH THREE TIMES A DAY Primary Care Provider: Howard Zimmerman Chi Referrals: Howard Zimmerman Chi, MD [Primary Care Provider] - Disposition Disposition: Acute Care Hospital [facility]
[2023-06-28 12:58] LABS: Absolute Lymphocyte Count 7.62 X10^3/uL (0.83-4.51); Absolute Neutrophil Count 4.8 X10^3/uL (2.0-7.7); Basophil# 0.38 X10^3/uL; Basophil% 2.6 % (0-1); Eosinophil# 0.33 X10^3/uL; Eosinophils% 2.3 % (0-5); Hematocrit 40.2 % (37-47); Hemoglobin 12.8 g/dL (12.0-15.0); Lymphocyte # 7.62 X10^3/ul (0.83-4.51); Mean Corp Hgb Conc 31.8 g/dL (32-36); Mean Corpuscular Hgb 29.8 pg (27.0-32.0); Mean Corpuscular Volume 93.5 fL (81-99); Mean Platelet Vol. 9.6 fl (6.2-12.0); Monocyte# 1.21 X10^3/uL; Monocyte% 8.4 % (0-10); NRBC Flagged by Analyzer 0 % (0-5); Neutrophil % 33.4 % (47-70); POSITIVE DIFFERENTIAL YES; POSITIVE MORPHOLOGY YES; Platelet Count 357 K/mm3 (150-450); White Blood Count 14.4 K/mm3 (4.4-11.0)
--- NOTE | 2023-06-28 13:05 | RAD_ITS ---
INDICATION: Neuro deficit, acute, stroke suspected EXAMINATION/TECHNIQUE: X-RAY - XR Chest 1 View COMPARISON: Prior study dated: 01/15/2023. FINDINGS: LINES/DEVICES: None. LUNGS: Prominent markings appear to be chronic. No focal infiltrate seen. No evidence of pleural effusions. MEDIASTINUM AND CARDIOVASCULAR STRUCTURES: Stable cardiomediastinal silhouette. Status post median sternotomy. BONES AND SOFT TISSUES: Unremarkable. RAD/Chest 1 View IMPRESSION: No radiographic evidence of acute cardiopulmonary disease. Electronically Signed: Fabien Angeles MD at 13:34 EST ,
[2023-06-28 13:08] LABS: Differential Indicated SCAN CRITERIA MET
--- NOTE | 2023-06-28 13:12 | CHAPLAIN ---
Type of Pastoral Visit ___ Initial Visit ___ Follow-up Visit ___ On-call Visit ___ General Patient Visit ___ Spiritual Assessment ___ Family Conference ___ Bereavement _x__ Rapid Response ___ Code Blue ___ Other (describe below) Pastoral Care Referral From ___ Patient ___ Family ___ Nurse ___ Physician ___ Machinist Bench ___ Office Messenger Helper _x__ Other (describe below) Sacrament/Intervention ___ Active listening ___ Anointing ___ Restoration ___ Bereavement ___ Communion ___ Karly exploration ___ ___ Life review ___ Prayer ___ Reconciliation ___ Sacrament of Sick _x__ Supportive presence ___ Wedding ___ Other (describe below) Pastoral Comments responded to stroke alert; patient was taken to CT and son was shown to the examination room by this warning analyst; offered support and presence to the son and brought him a cup of coffee; son does not think pt or himself needs any additional support at this time
[2023-06-28 13:13] LABS: Anion Gap 5 (5-15); BUN 24 mg/dL (7-18); BUN/Creat Ratio 23.5 RATIO (10-20); Calcium,Total 9.2 mg/dL (8.5-10.1); Chloride 103 mmol/L (98-107); Creatinine, Serum 1.02 mg/dL (0.55-1.02); EST Glomerular Filtration Rate 55 mL/min (>60); Est Glom Filt Rate - Afr Amer 66 mL/min (>60); Estimated Creatinine Clearance 25.91 ml/min; Glucose 91 mg/dL (74-106); Potassium 4.1 mmol/L (3.5-5.1); Prothrombin Time (Protime)PT. 12.6 SECONDS (11.7-14.9); Sodium Level 137 mmol/L (136-145); Troponin-I HS 6 pg/mL (3.0-54.0)
[2023-06-28 13:14] LABS: Partial Thromboplast Time 27.6 Seconds (24.1-36.2)
--- NOTE | 2023-06-28 13:30 | HP.PCM.HOS_ITS ---
HPI - General General Date of Admission: 06/28/23 Date of Service: 06/28/23 Chief Complaint: Expressive aphasia HPI Narrative The patient is an 88 y/o F w/ PMHx: Chronic orthostatis, CKD stage II per GFR trending, HTN, HLD, Hx Atrial myxoma, Hx Parotid tumor, Lymphoma, Hx PAC/PVC, Parkinson's disease, Valvular Heart Disease who lives alone who presents to the [facility] ED on 06/28/23 with history of low normal at 8:30 PM the evening prior per f jason and upon awakening this morning noted she was having difficulty getting her words out which she immediately noticed and when she talked to her son he said it was like she was trying to put 2 sentences together that did not match prompting transition to the ED unfortunately upon arrival she began to improve. Her initial NIH stroke score per ED physician 0. Patient notes feeling back to her baseline. She does state that she went to bed the evening prior to approximately 10 PM as she was watching TV specifically the [employer] station and did not notice any issues at that time. Workup in the ED included T97.2, heart rate initially 118 with most recent repeat 72, BP initially 166/91 with most recent repeat 185/109, respiratory rate 21, 97% on room air, CBC with WBC 14.4, hemoglobin 12.8, platelet 357 with lymphocytosis, unremarkable coags, BMP with BUN/creatinine 24/1.02 otherwise unremarkable, troponin 6, CT of the brain with chronic involutional changes, CTA head and neck with mild degree of chronic calcific plaques at the origin of both the right and left internal carotid homero devan with otherwise no acute findings, chest x-ray with no acute findings, EKG with sinus rhythm with PACs. In the ED patient administered aspirin 325 mg p.o. x 1. [facility] Medical History CKD (chronic kidney disease), stage II History of atrial myxoma Hyperlipidemia Hypertension Lymphoma Nonrheumatic mitral (valve) prolapse Nonrheumatic mitral valve regurgitation Nonrheumatic tricuspid valve regurgitation Parkinsons disease Parotid tumor Premature atrial contractions Premature ventricular contraction Home Medications multivitamin 1 tab PO DAILY vitamin 11/20/18 [History Last Taken 01/15/23] carbidopa 25 mg-levodopa 100 mg tablet 2 tab PO TID parkinsons 01/05/23 [History Last Taken 01/15/23] albuterol sulfate 90 mcg/actuation aerosol inhaler 2 puff inhalation Q4H PRN shortness of breath or wheezing 01/15/23 [History Last Taken Unknown] midodrine 5 mg tablet 5 mg PO TID 06/28/23 [History Last Taken 06/28/23] Allergy/AdvReac Type Severity Reaction Status Date / Time Penicillins Allergy Rash Verified 06/28/23 12:19 tramadol AdvReac Other Verified 06/28/23 12:19 Family History Father Heart disease CHF (congestive heart failure) Mother No problems noted. Surgical History (Updated 06/28/23 @ 14:[address] Daisy Mack MD) History of laparoscopic cholecystectomy History of splenectomy Social History (Updated 06/28/23 @ 14:[address] Daisy Mack MD) household members: none Smoking Status: Never smoker alcohol intake: current details: occasional substance use type: does not use ROS ROS Narrative Admission Review of Systems: CONSTITUTIONAL: No weight loss, fever, chills, + weakness or fatigue. HEENT: Eyes: No visual loss, blurred vision, double vision or yellow sclerae. Ears, Nose, Throat: No hearing loss, sneezing, congestion, runny nose or sore throat. SKIN: No rash or itching, lesions, wounds. CARDIOVASCULAR: No chest pain, chest pressure or chest discomfort, palpitations, edema, orthopnea, syncopal events. RESPIRATORY: No shortness of breath, cough or sputum, wheezing, hemoptysis. GASTROINTESTINAL: No anorexia, nausea, vomiting or diarrhea, abdominal pain, melena, BRBPR. GENITOURINARY: No dysuria, frequency, urgency or retention. NEUROLOGICAL: + Transient expressive aphasia, underlying history of Parkinson's disease with chronic debility, imbalance, tremors. No headache, dizziness, syncope, paralysis, ataxia, numbness or tingling in the extremities, focal weakness, change in bowel or bladder control, seizure. MUSCULOSKELETAL: + muscle, back pain, joint pain or stiffness. HEMATOLOGIC: No anemia. Easy bleeding/bruising. LYMPHATICS: No enlarged nodes. No history of splenectomy. PSYCHIATRIC: No history of depression or anxiety. ENDOCRINOLOGIC: No reports of sweating, cold or heat intolerance. No polyuria or polydipsia. ALLERGIES: + History of hives. Vital Signs Vital Signs Vital Signs: 06/28/23 12:17 06/28/23 12:50 06/28/23 12:55 Temperature 97.2 F L Temperature Source Temporal Pulse Rate 118 H 70 72 Respiratory Rate 18 17 21 H Blood Pressure 166/91 H 185/109 H 185/109 H Blood Pressure Mean 116 134 134 Pulse Ox 96 95 97 Oxygen Delivery Method Room Air Room Air Room Air 06/28/23 12:59 Temperature Temperature Source Pulse Rate Respiratory Rate Blood Pressure Blood Pressure Mean Pulse Ox 97 Oxygen Delivery Method Room Air Weight Weight: 93 lb 2 oz Body Mass Index (BMI) 17.0 Physical Exam Narrative Physical Examination: General: Awake, alert, oriented x >3 including self, place, year and month and cooperative, seated upright in the ED bed in no apparent distress, reports she feels back to her baseline. Skin: Normal color, normal turgor, no icterus, no cyanosis except occasional staged ecchymoses. HEENT: AT/NC, EOMI, PERRLA, mildly dry MM, no carotid bruits or JVD noted. Lungs: CTA bilaterally, moderate effort, mild decrease BL bases, no rales, ronchi or wheezing. Heart: Regular rate and rhythm; no gallop, rub audible, + SM. Abdomen: Soft, thin habitus, NTTP, ND, normal BS, no HSM. Extremities: No cyanosis, clubbing, or edema. Neurological: Patient awake, alert, oriented as noted, cognitive function suspect baseline intact; pupils equally reactive to light and accommodation, cranial nerves grossly normal, moving all 4 extremities, no focal deficits, finger-nose and [id number] appropriate, equivocal Babinski, sensation appropriate, no further evidence of expressive aphasia. Psychiatric: Affect appears normal, no acute evidence of depressive or anxiety feelings. Results Lab / Micro Data 06/28/23 12:40 06/28/23 12:40 Labs: Laboratory Results - last 24 hr 06/28/23 12:22: POC Glucose 78 06/28/23 12:40: WBC 14.4 H, RBC 4.30, Hgb 12.8, Hct 40.2, MCV 93.5, MCH 29.8, MCHC 31.8 L, RDW Std Deviation 48.0 H, RDW Coeff of [place] 14.0, Plt Count 357, MPV 9.6, Immature Gran % (Auto) 0.300, Neut % (Auto) 33.4 L, Lymph % (Auto) 53.0 H, [place] % (Auto) 8.4, Eos % (Auto) 2.3, Baso % (Auto) 2.6 H, Absolute Neuts (auto) 4.8, Absolute Lymphs (auto) 7.62 H, Nucleated RBC % 0, PT 12.6, INR 1.0, APTT 27.6, Sodium 137, Potassium 4.1, Chloride 103, Carbon Dioxide 29.0, Anion Gap 5, BUN 24 H, Creatinine 1.02, Estim Creat Clear Calc 25.91, Est GFR (MDRD) Af Amer 66, Est GFR (MDRD) Non-Af 55 L, BUN/Creatinine Ratio 23.5 H, Glucose 91, Calcium 9.2, Troponin I High Sens 6 Imagaing Radiology Impression Brain CT 06/28/23 12:34 IMPRESSION: Chronic involutional changes of the brain. N.B. : The above Results were Read Back by Olivier Maradiaga MD to Dr Ezra MD, and understanding confirmed on 06/28/2023 12:55:52 (ET). Electronically Signed: Olivier Maradiaga MD at 12:57 EST , ADDENDUM: 06/28/23 1304 IMPRESSION: Chronic involutional changes of the brain. N.B. : The above Results were Read Back by Olivier Maradiaga MD to Dr Ezra MD, and understanding confirmed on 06/28/2023 12:55:52 (ET). Electronically Signed: Olivier Maradiaga MD at 12:57 EST , Head/Neck CTA 06/28/23 12:34 IMPRESSION: Mild degree of chronic calcific plaques at the origin of both the right and left internal carotid arteries. Electronically Signed: Olivier Maradiaga MD at 13:09 EST , ADDENDUM: 06/28/23 1316 IMPRESSION: Mild degree of chronic calcific plaques at the origin of both the right and left internal carotid arteries. N.B. : The above Results were Read Back by Olivier Maradiaga MD to Dr Ezra MD, and understanding confirmed on 06/28/2023 13:09:44 (ET). Electronically Signed: Olivier Maradiaga MD at 13:09 EST , Assessment & Plan Assessment/Plan (1) Brain TIA: PLAN: Plan The patient is an 88 y/o F w/ PMHx: Chronic orthostatis, CKD stage II per GFR trending, HTN, HLD, Hx Atrial myxoma, Hx Parotid tumor, Lymphoma, Hx PAC/PVC, Parkinson's disease, Valvular Heart Disease who lives alone who presents to the [facility] ED on 06/28/23 with history of low normal at 8:30 PM the evening prior per family and upon awakening this morning noted she was having difficulty getting her words out which she immediately noticed and when she talked to her son he said it was like she was trying to put 2 sentences together that did not match prompting transition to the ED unfortunately upon arrival she began to improve. #1. Transient expressive aphasia concerning for TIA, currently resolved: Will admit to PCU, will obtain MRI Brain, ECHO with bubble study, PT/OT/Speech/Nutrition evaluation per protocol. Will allow permissive HTN, maintain on asa with full-strength dose administered upon presentation, add low- dose statin w/ AM FLP, fall precautions. Mag, TSH, FLP, HgbA1c requested. Maintain on fall and aspiration precautions. Given stroke alert report will request ongoing neurology evaluation. #2. Parkinson's disease: Complicates presentation, will continue patient home S inemet regimen, maintain on fall precautions, PT/OT consulted as noted as well as case management for discharge planning. Patient does report using a walker in her home. #3. History PAC/PVC: EKG upon presentation with significant evidence of PACs/PVCs however per discussion with ED physician do agree that P waves are present as initially reading atrial fibrillation, will continue monitor on tel emetry, not on any beta-dorene therapy. #4. Hypertension: Will maintain permissive hypertension given presentation with parent agents per stroke protocol. Patient does have orthostasis and is on c hronic low-dose midodrine therapy #5. Hyperlipidemia: Not on statin therapy, adding low-dose per stroke protocol recommendation pending further evaluation as noted, FLP in AM. #6. Chronic orthostasis: We will continue patient home chronic midodrine regimen, maintain on fall precautions. #7. Chronic Kidney Disease Stage II per GFR trending: Admission BUN/Cr 24/1.02, baseline renal function appears primarily 1.1-1.3, repeat BMP in AM. #8. Valvular heart disease: 01/15/2023 echocardiogram with EF 60%, mild MVI, trivial LEON. Repeat echo requested for bubble study. 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 #10. Lymphoma: Unclear specific type or diagnosis timeline, given presentation with lymphocytosis and the fact that patient does admit she sees Dr. Brooks [facility] oncology routinely suspect this is an ongoing health issue, encourage continued follow-up as previously arranged. #11. DVT prophylaxis: Heparin. #12. CODE status: Patient IGNACIA is her son and living will is currently in place. Discussed CODE status at length including difference between FULL code, DNR-CCA and DNR-CC status. Following discussions about the differences in these status, requested DNR-CCA, no intubation status. Advanced Care Planning Face to Face Time: 16 minutes. Charges/Coding Visit Charges Inpatient E&M: 99511 Init Hosp L2 Procedures Hospitalists Procedures: 56934 Advncd Care Plan 30 Min
--- NOTE | 2023-06-28 13:40 | NURSING ---
PCU OBS TIA WHITE
[2023-06-28 14:03] LABS: Magnesium 2.3 mg/dL (1.6-2.6)
[2023-06-28 14:12] LABS: Differential Comment SCANNED; Reactive Lymphocyte 1+
[2023-06-28] MEDS: Aspirin 325 MG Tablet PO (14:26)
--- NOTE | 2023-06-28 16:18 | ED.RN ---
Addendum entered by Sissy Talbot 06/28/23 16:23: Correction, was not lisinopril. Was midodrine. Original Note: Dr. Mack ok'd patient to take medications from home. Patient self medicated 1-10mg Lisinopril and her dose of Sinemet at 1620
--- NOTE | 2023-06-28 16:23 | ED.RN ---
Dr. Mack called and notified patient took Midodrine along with Sinemet, verbal order obtained for Hydralazine 10mg to be given now. No further safety concerns noted.
[2023-06-28] MEDS: hydrALAZINE 20 MG/ML Vial 10 MG IV (16:33)
--- NOTE | 2023-06-28 16:56 | MRI_ITS ---
STUDY: MRI BRAIN WITHOUT CONTRAST REASON FOR EXAM: Female, 88 years old. CVA TECHNIQUE: Standardized multiplanar fat and water weighted pulse sequences were obtained. COMPARISON: CT of the brain June 28, 2023 FINDINGS: Mild atrophy and moderate periventricular white matter ischemic change without mass effect or restricted diffusion.. Normal bilateral basal ganglia. Normal thalami. There is no extra-axial fluid accumulation. Normal flow voids within the major intracranial circulation suggesting patency by spin echo criteria. Normal sella turcica, pituitary gland, infundibular stalk, optic chiasm and hypothalamus. Normal tectal plate and pineal gland. Normal midbrain, paul and medulla. Normal cerebellum. Normal basal cisterns. Normal bilateral temporal bones. Normal bilateral internal auditory canals. Postsurgical changes of the orbits.. Normal visualized paranasal sinuses. Normal calvarium and skull base. Normal visualized soft tissue structures. Normal visualized upper cervical spine. MRI/Brain without Contrast IMPRESSION: Mild atrophy and moderate periventricular white matter ischemic change. No evidence for acute infarct. Electronically Signed: Renzo Griffith MD at 18:52 EST ,
--- OUTSIDE RECORDS SUMMARY | 2023-06-28 16:57 | XMS RPT_ITS | CCD ---
Author Name Unknown Address [address] [place] [address] Organization [facility] Care Team Providers Care Ballistics Tester Name Role Phone FARHAD Reagan, Amy Mao Unavailable Unavailabl nalini Reagan RN, Phyllis M Unavailable Unavailabl e Taye, Chris-Chi Primary Care Provider Taye MASON, Chris-Chi Primary Care Provider Taye, Chris Chi Primary Care Provider DR CHRIS KOTHARI MDALEXANDRA Primary Care Physician Sadaf Love PT Unavailable Unavailable Taye, Chris Chi Primary Care Provider Taye, Chris Chi Primary Care Provider Taye, Chris Chi Primary Care Provider [phone] TAYE, CHRIS CHI Primary Care Unavailable ITIN, SRIDEVI Referring Unavailable MASCI, BART A Attending Unavailable MASCI, BART A Referring Unavailable TAYE, CHRIS CHI Primary Care Unavailable TAYE, CHRIS CHI Primary Care Unavailable MASCI, BART A Referring Unavailable TAYE, CHRIS CHI Primary Care Unavailable ITIN, SRIDEVI Attending Unavailable ITIN, SRIDEVI Referring Unavailable TAYE, CHRIS CHI Primary Care Unavailable SILVA HERNANDEZ Referring Unavailable BRADFORD, SELVIN Attending Unavailable BRADFORD, SELVIN Referring Unavailable TAYE, HCRIS CHI Primary Care Unavailable TAYE, CHRIS CHI Primary Care Unavailable BRADFORD, SELVIN Referring Unavailable MASCI, BART A Attending Unavailable MASCI, BART A Referring Unavailable TAYE, CHRIS CHI Primary Care Unavailable MASCI, BART A Referring Unavailable TAYE, CHRIS CHI Primary Care Unavailable BRADFORD, SELVIN Attending Unavailable TAYE, CHRIS CHI Primary Care Unavailable Allergies Allergy Classification Reported Allergen(s) Allergy Type Date of Onset Reaction(s) Facility (2 sources) mold extract; Translations: [MOLD] Drug Allergy 1 [facility] Work Phone: [phone] (2 sources) potassium Drug Allergy 1 Rash [facility] Work Phone: [phone] (20 sources) traMADol; Translations: [TRAMADOL] Drug Allergy 7 Nausea Only, GI Upset [facility] Work Phone: [phone] (2 sources) RAGWEED drug allergy 1 [facility] Work Phone: [phone] (4 sources) Penicillins; Translations: [PENICILLINS] Propensity to adverse reactions to drug 5 [place], [place] (2 sources) Penicillins Drug Allergy 5 [facility] Work Phone: [phone] (19 sources) environmental [Other] Propensity to adverse reactions 5 [facility] Work Phone: (17 sources) Penicillins Drug Allergy 5 [facility] Work Phone: [phone] (2 sources) OTHER; Translations: [OTHER] Propensity to adverse reactions (disorder) 5 [facility] Other [facility] Medications Current Medications Medication Drug Class(es) Dates Sig (Normalized) Sig (Original) ALPRAZolam 0.25 mg disintegrating oral tablet (1 source) Benzodiazepine Start: 05-27-2019 ALPRAZolam (NIRAVAM) dissolvable tablet 0.25 mg calcium chloride 0.0014 meq/ml / potassium chloride 0.004 meq/ml / sodium chloride 0.103 meq/ml / sodium lactate 0.028 meq/ml injectable solution (1 source) Start: 05-27-2019 lactated ringers infusion 1 ml diphenhydrAMINE hydrochloride 50 mg/ml cartridge (1 source) Histamine-1 Receptor Antagonist Start: 05-27-2019 End: 05-27-2019 diphenhydrAMINE (BENADRYL) injection 12.5 mg enteric contrast (will be provided with radiology test) (1 source) Start: 02-14-2022 End: 02-14-2022 take 1 dose by mouth once, then take 1 dose by mouth once enteric contrast (will be provided with radiology test) Take 1 Each by mouth one time only for [address] ABD/PEL WO Routine order Administer, As Directed One Time Only, via Oral, Rectal, both Oral and Rectal, Enteric Tube, Stoma or Indwelling Catheter, Enteric Contrast as designated per enteric contrast guidelines 1 Each 0 02/14/2022 02/14/2022 Active Completed/Discontinued Medications Medication Drug Class(es) Dates Sig (Normalized) Sig (Original) acetaminophen 325 mg oral tablet (1 source) Start: 05-27-2019 End: 05-27-2019 acetaminophen (TYLENOL) tablet 650 mg HYDROCODONE-ACETAMINO PHEN (4 sources) Opioid Agonist Start: 11-08-2011 LORTAB 5-500 MG TABS As needed HYDROCODONE-ACETAMIN OPHEN [phone] Aleta Castellanos RN Problems Active Problems Problem Classification Problem Date Documented Date Episodic/Chronic Abdominal hernia (1 source) Disorder of abdominal wall; Translations: [Ventral hernia without obstruction or gangrene] Episodic Cardiac dysrhythmias (4 sources) Ventricular premature beats; Translations: [Premature atrial contraction] Onset: 11-24-2013 11-24-2013 Chronic Diseases of mouth; excluding dental (1 source) Other diseases of tongue; Translations: [Tongue biting] Onset: 04-04-2023 Episodic Diseases of white blood cells (19 sources) Leukocytosis; Translations: [Elevated white blood cell count, unspecified] Onset: 07-21-2011 07-21-2011 Chronic Disorders of lipid metabolism (2 sources) Hyperlipidemia; Translations: [Hyperlipidemia, unspecified] Onset: 09-02-2010 09-02-2010 Chronic Diverticulosis and diverticulitis (19 sources) Diverticulosis of colon; Translations: [Diverticulosis of large intestine without perforation or abscess without bleeding] Onset: 12-05-2006 04-18-2010 Chronic Epilepsy; convulsions (1 source) Unspecified convulsions; Translations: [Convulsions, unspecified convulsion type (HCC)] Onset: 03-15-2023 Episodic Heart valve disorders (8 sources) Tricuspid incompetence, non-rheumatic ; Translations: [Tricuspid valve regurgitation] Onset: 09-02-2010 06-16-2016 Chronic Other circulatory disease (19 sources) Raynaud's disease; Translations: [Raynaud's syndrome without gangrene] Onset: 09-14-2009 09-15-2011 Chronic Other nervous system disorders (3 sources) Abnormal gait; Translations: [Unspecified abnormalities of gait and mobility] Episodic Other nervous system disorders (1 source) Incoordination; Translations: [Other lack of coordination] Episodic Parkinson`s disease (20 sources) Parkinson's disease; Translations: [Parkinson's disease] Onset: 12-15-2009 Chronic Residual codes; unclassified (2 sources) Insomnia; Translations: [Other insomnia] Chronic Residual codes; unclassified (4 sources) REM sleep behavior disorder; Translations: [REM sleep behavior disorder] Chronic Residual codes; unclassified (19 sources) 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; Translations: [Insomnia due to medical condition] Onset: 12-31-2017 12-31-2017 Chronic Residual codes; unclassified (1 source) REM sleep behavior disorder; 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)] Onset: 07-18-2022 Chronic Unclassified (2 sources) Long-term drug therapy; Translations: [Other termite helper (current) drug therapy] Onset: 09-02-2010 09-02-2010 Past or Other Problems Problem Classification Problem Date Documented Date Episodic/Chronic Cardiac dysrhythmias (2 sources) Palpitations; Translations: [Palpitations] Onset: 1 09-02-2010 Episodic Heart valve disorders (2 sources) Heart murmur; Translations: [Cardiac murmur, unspecified] Onset: 1 09-02-2010 Episodic Hemorrhoids (19 sources) Internal hemorrhoids; Translations: [Other hemorrhoids] Onset: 7 04-18-2010 Episodic Malaise and fatigue (2 sources) Fatigue; Translations: [Other fatigue] Onset: 7 06-26-2016 Episodic Neoplasms of unspecified nature or uncertain behavior (20 sources) Lymphoproliferative disorder; 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, hematopoietic and related tissue] Onset: 2 Episodic Non-Hodgkin`s lymphoma (19 sources) History of malignant lymphoma; Translations: [Personal history of other malignant neoplasms of lymphoid, hematopoietic and related tissues] Onset: 4 12-15-2013 Episodic Other and unspecified benign neoplasm (2 sources) Benign neoplasm of mediastinum; Translations: [Benign neoplasm of mediastinum] Onset: 1 09-02-2010 Episodic Other and unspecified benign neoplasm (19 sources) Benign neoplasm of colon; Translations: [Benign neoplasm of colon, unspecified] Onset: 7 04-18-2010 Episodic Other connective tissue disease (2 sources) Cramp in lower limb; Translations: [Cramp and spasm] Onset: 7 06-26-2016 Episodic Other nervous system disorders (1 source) Unspecified abnormalities of gait and mobility; Translations: [Abnormality of gait] Onset: 3 Episodic Other nutritional; endocrine; and metabolic disorders (19 sources) Abnormal weight loss; Translations: [Abnormal weight loss] Onset: 8 12-31-2017 Episodic Other screening for suspected conditions (not mental disorders or infectious disease) (3 sources) Patient encounter status; Translations: [Encounter for screening mammogram for malignant neoplasm of breast] Onset: 3 Episodic Syncope (2 sources) Syncope and collapse; Translations: [Syncope and collapse] Onset: 1 09-02-2010 Episodic Results Test Name Value Interpretation Reference Range Facil ity Vital Signs Date Time Vital Sign Value Performing Clinician Facility 04-04-2023 13:20-0400 Body height 152.4 cm Selvin Lowe MD Work Phone: [facility] 04-04-2023 13:20-0400 Body weight 44 kg Selvin Lowe MD Work Phone: [facility] 04-04-2023 13:20-0400 SaO2% (BldA) [Mass fraction] 98 % Selvin Lowe MD Work Phone: [facility] 02-13-2023 11:24-0400 Body height 156 cm Bart Brooks DO Work Phone: [facility] 02-13-2023 11:24-0400 Body temperature 97.5 [degF] Bart Brooks DO Work Phone: [facility] 02-13-2023 11:24-0400 Body weight 43.55 kg Bart Brooks DO Work Phone: [facility] 02-13-2023 11:24-0400 Diastolic blood pressure 81 mm[Hg] Bart Masci DO Work Phone: [facility] 02-13-2023 11:24-0400 Heart rate 89 /min Bart Masci DO Work Phone: [facility] 02-13-2023 11:24-0400 SaO2% (BldA) [Mass fraction] 97 % Bart Masci DO Work Phone: [facility] 02-13-2023 11:24-0400 Systolic blood pressure 111 mm[Hg] Bart Masci DO Work Phone: [facility] 08-15-2022 11:13-0500 Body height 156.2 cm Bart Masci DO Work Phone: [facility] 08-15-2022 11:13-0500 Body temperature 97 [degF] Bart Masci DO Work Phone: [facility] 08-15-2022 11:13-0500 Body weight 45.59 kg Bart Masci DO Work Phone: [facility] 08-15-2022 11:13-0500 Diastolic blood pressure 76 mm[Hg] Bart Masci DO Work Phone: [facility] 08-15-2022 11:13-0500 Heart rate 48 /min Bart Masci DO Work Phone: [facility] 08-15-2022 11:13-0500 Systolic blood pressure 120 mm[Hg] Bart Masci DO Work Phone: [facility] 07-05-2022 15:39-0500 Body height 156.8 cm Sridevi Ocasio MD Work Phone: [facility] 07-05-2022 15:39-0500 Body weight 46.27 kg Sridevi Ocasio MD Work Phone: [facility] 07-05-2022 15:39-0500 Diastolic blood pressure 68 mm[Hg] Sridevi Ocasio MD Work Phone: [facility] 07-05-2022 15:39-0500 Heart rate 73 /min Sridevi Ocasio MD Work Phone: [facility] 07-05-2022 15:39-0500 SaO2% (BldA) [Mass fraction] 95 % Sridevi Ocasio MD Work Phone: [facility] 07-05-2022 15:39-0500 Systolic blood pressure 138 mm[Hg] Sridevi Ocasio MD Work Phone: [facility] 02-14-2022 11:51-0400 Body height 156.8 cm Bart Masci DO Work Phone: [facility] 02-14-2022 11:51-0400 Body temperature 97 [degF] Bart Masci DO Work Phone: [facility] 02-14-2022 11:51-0400 Body weight 46.27 kg Bart Masci DO Work Phone: [facility] 02-14-2022 11:51-0400 Diastolic blood pressure 90 mm[Hg] Bart Masci DO Work Phone: [facility] 02-14-2022 11:51-0400 Heart rate 67 /min Bart Masci DO Work Phone: [facility] 02-14-2022 11:51-0400 Systolic blood pressure 147 mm[Hg] Bart Masci DO Work Phone: [facility] 09-19-2021 14:33-0400 Body height 158 cm Sridevi Ocasio MD Work Phone: [facility] 09-19-2021 14:33-0400 Body weight 48.53 kg Sridevi Ocasio MD Work Phone: [facility] 09-19-2021 14:33-0400 Diastolic blood pressure 70 mm[Hg] Sridevi Ocasio MD Work Phone: [facility] 09-19-2021 14:33-0400 Heart rate 86 /min Sridevi Ocasio MD Work Phone: [facility] 09-19-2021 14:33-0400 SaO2% (BldA) [Mass fraction] 97 % Sridevi Ocasio MD Work Phone: [facility] 09-19-2021 14:33-0400 Systolic blood pressure 142 mm[Hg] Sridevi Ocasio MD Work Phone: [facility] 05-27-2019 09:30-0500 Body temperature 97.81 [degF] Brandon Faye MD Work Phone: [facility] Work Phone: 05-27-2019 09:30-0500 Diastolic blood pressure 78 mm[Hg] Brandon Faye MD Work Phone: [facility] Work Phone: 05-27-2019 09:30-0500 Heart rate 68 /min Brandon Faye MD Work Phone: [facility] Work Phone: 05-27-2019 09:30-0500 Respiratory rate 15 /min Brandon Faye MD Work Phone: [facility] Work Phone: 05-27-2019 09:30-0500 SaO2% (BldA) [Mass fraction] 94 % Brandon Faye MD Work Phone: [facility] Work Phone: 05-27-2019 09:30-0500 Systolic blood pressure 123 mm[Hg] Brandon Faye MD Work Phone: [facility] Work Phone: 05-27-2019 06:56-0500 Body height 157.5 cm Brandon Faye MD Work Phone: [facility] Work Phone: 05-27-2019 06:56-0500 Body mass index (BMI) [Ratio] 19.66 kg/m2 Brandon Faye MD Work Phone: [facility] Work Phone: 05-27-2019 06:56-0500 Body weight 48.76 kg Brandon Faye MD Work Phone: [facility] Work Phone: 2019 13:58-0500 Height 157.5 cm [facility] [place] [facility] 13:56-0500 BMI (Body Mass Index) 19.74 kg/m2 Brandon [facility], [place] 2019 13:56-0500 Body Temperature 98.6 [degF] Brandon Faye [facility], [place] 2019 13:56-0500 Body weight 48.94 kg Brandon [facility] , [place] 2019 13:56-0500 BP Diastolic 95 mm[Hg] [facility] [place] [facility] 13:56-0500 BP Systolic 170 mm[Hg] [facility] [place] [facility] 13:56-0500 Pulse (Heart Rate) 59 /min [facility], [place] 2019 13:56-0500 Pulse Oximetry 95 % [facility] [place] [facility] 13:56-0500 Respiratory Rate 16 /min [facility] [place] 01-08-2017 13:29-0400 BMI (Body Mass Index) 20.19 kg/m2 [facility] Work Phone: 01-08-2017 13:29-0400 BP Diastolic 72 mm[Hg] [facility] Work Phone: 01-08-2017 13:29-0400 BP Systolic 100 mm[Hg] [facility] Work Phone: 01-08-2017 13:29-0400 Height 160.02 cm FARHAD [facility] Work Phone: 01-08-2017 13:29-0400 Pulse (Heart Rate) 70 /min [facility] Work Phone: 01-08-2017 13:29-0400 Respiratory Rate 20 /min [facility] Work Phone: 01-08-2017 13:29-0400 Weight 51.71 kg Amy Reagan RN [facility] Work Phone: 06-26-2016 13:50-0500 BSA (Body Surface Area) 1.52 m2 [facility] Work Phone: Encounters Encounter Date Encounter Type Care Provider Facility Start: 05-18-2023 Telephone encounter Selvin laird MD Work Phone: [facility] Date Procedure Procedure Detail Performing Clinician Start: 06-30-2022 Screening mammograph y bi 2-view breast inc cad Silva Hernandez MD Work Phone: Start: 2019 Basic metabolic pane l calcium total Yoana R Oumou Work Phone: Start: 2019 Blood count complete automated Yoana R Oumou Work Phone: Start: 05-07-2017 End: 05-07-2017 Ecg routine ecg w/least 12 lds w/i&r Tiago Vigil MD Start: 01-08-2017 End: 01-08-2017 Follow Up Appt 1 year Bart Marquez Start: 01-08-2017 End: 01-08-2017 PFM Bart Olivarez MD Start: 06-26-2016 End: 06-28-2016 *BMP Gonzalez Olivo Bernard MAP COMPILER-C Start: 06-26-2016 End: 06-28-2016 *CBC with Differential Gonzalez Geovani Bernard MAP COMPILER- C Start: 06-26-2016 End: 12-26-2016 Follow Up Appt Other Gonzlaez A Bernard MAP COMPILER-C Start: 06-26-2016 End: 06-28-2016 Magnesium [Mass/volume] in Serum or Plasma Gonzalez A Bernard MAP COMPILER-C Start: 04-13-2016 End: 12-26-2016 *Hepatic Function Panel Bart Olivarez MD Start: 04-13-2016 End: 12-26-2016 Lipid 1996 panel - Serum or Plasma Bart Olivarez MD Start: 01-03-2016 End: 06-16-2016 Echocardiography Bart Olivarez MD Start: 01-03-2016 End: 01-03-2016 Follow Up Appt 6 months Bart Olivarez MD Start: 01-03-2016 End: 01-03-2016 MMM Bart Olivarez MD Start: 10-13-2015 End: 10-13-2015 Lipid 1996 panel - Serum or Plasma Bart Olivarez MD Start: 06-28-2015 End: 07-05-2015 *Hepatic Function Panel Bart Olivarez MD Start: 06-28-2015 End: 07-05-2015 Lipid 1996 panel - Serum or Plasma Bart Olivarez MD Start: 06-25-2015 End: 06-25-2015 Follow Up Appt 6 months Julissa el PA-C Work Phone: Start: 06-25-2015 End: 06-25-2015 [facility] Julissa Da Silva PA-C Work Phone: Start: 04-07-2015 End: 04-09-2015 *Hepatic Function Panel Bart Olivarez MD Start: 04-07-2015 End: 04-09-2015 Lipid 1996 panel - Serum or Plasma Bart Olivarez MD Start: 11-23-2014 End: 05-18-2015 24 hour holter monitor Bart Olivarez MD Start: 11-23-2014 End: 11-23-2014 Ecg routine ecg w/least 12 lds w/i&r Bart Olivarez MD Start: 11-23-2014 End: 11-23-2014 Follow Up Appt 6 months Bart Olivarez MD Start: 11-23-2014 End: 11-23-2014 ROCKY Olivarez MD Start: 10-06-2014 End: 10-06-2014 *Hepatic Function Panel Bart Olivarez MD Start: 10-06-2014 End: 10-06-2014 Lipid 1996 panel - Serum or Plasma Bart Olivarez MD Start: 05-26-2014 End: 05-26-2014 Follow Up Appt Other Julissa mcfadden PA-C Work Phone: Start: 05-26-2014 End: 05-26-2014 PFM Julissa Da Silva PA-C Work Phone: Start: 01-16-2014 End: 04-07-2014 *Hepatic Function Panel Bart Olivarez MD Start: 01-16-2014 End: 04-07-2014 Lipid 1996 panel - Serum or Plasma Bart Olivarez MD Start: 11-24-2013 End: 11-24-2013 Ecg routine ecg w/least 12 lds w/i&r Bart Olivarez MD Start: 11-24-2013 End: 11-24-2013 Follow Up Appt 6 months Bart Olivarez MD Start: 11-24-2013 End: 11-24-2013 MMM Bart Olivarez MD Start: 09-16-2013 End: 10-20-2013 *Hepatic Function Panel Bart Olivarez MD Start: 09-16-2013 End: 10-20-2013 Lipid 1996 panel - Serum or Plasma Bart Olivarez MD Start: 05-01-2013 End: 05-22-2013 Ecg routine ecg w/least 12 lds w/i&r Julissa Da Silva PA-C Work Phone: Start: 04-08-2013 End: 05-26-2014 24 hour holter monitor Julissa bustos PA-C Work Phone: Start: 04-08-2013 End: 04-08-2013 Ecg routine ecg w/least 12 lds w/i&r Julissa Da Silva PA-C Work Phone: Start: 04-08-2013 End: 04-08-2013 Follow Up Appt 6 months Julissa el PA-C Work Phone: Start: 04-08-2013 End: 04-08-2013 Follow Up Appt Other Julissa mcfadden PA-C Work Phone: Start: 04-08-2013 End: 04-08-2013 PFM Julissa Da Silva PA-C Work Phone: Start: 11-16-2012 End: 12-02-2012 *Hepatic Function Panel Bart Olivarez MD Start: 11-16-2012 End: 12-02-2012 Lipid 1996 panel - Serum or Plasma Bart Olivarez MD Start: 10-11-2012 End: 10-11-2012 Follow Up Appt 6 months Bart Olivarez MD Start: 10-11-2012 End: 10-11-2012 Follow Up Appt Other Bart Olivarez MD Start: 10-11-2012 End: 10-11-2012 MMM Bart Olivarez MD Start: 05-18-2012 End: 05-24-2012 *Hepatic Function Panel Bart Olivarez MD Start: 05-18-2012 End: 05-24-2012 Lipid 1996 panel - Serum or Plasma Bart Olivarez MD Start: 12-07-2011 End: 12-19-2011 *Hepatic Function Panel Bart Olivarez MD Start: 12-05-2011 End: 12-19-2011 Lipid 1996 panel - Serum or Plasma Bart Olivarez MD Start: 11-09-2011 End: 11-09-2011 Follow Up Appt 1 year Bart Marquez Plan of Treatment Date Care Activity Detail Author Start: 01-15-2033 Urine microalbumin profile DTaP,Tdap,Td Vaccine (3 - Td or Tdap) [facility] Start: 08-15-2025 DIABETES SCREEN DIABETES SCREEN [facility] Start: 08-15-2025 Diabetes Screening Diabetes Screening [facility] Start: 02-14-2025 DIABETES SCREEN DIABETES SCREEN [facility] Start: 02-20-2023 COVID-19 VACCINE (6 - Moderna series) COVID-19 VACCINE (6 - Moderna series) [facility] Start: 02-16-2023 Covid-19 Vaccine ( season) Covid-19 Vaccine () [facility] Start: 02-16-2023 Influenza vaccination [facility] Start: 08-15-2022 End: 10-15-2022 CBC W Auto Differential panel - Blood CBC + DIFF Lab STAT 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) Expected: 08/15/2022, Expires: 10/15/2022 [facility] Work Phone: Immunizations Immunization Date Immunization Notes Care Provider [facility] 04-06-2021 COVID-19 vaccine, fu ll dose (MODERNA) Sridevi Ocasio MD Work Phone: [facility] Work Phone: 02-03-2021 influenza, injectabl e, quadrivalent, contains preservative Sridevi Ocasio MD Work Phone: [facility] Work Phone: 08-13-2020 COVID-19 vaccine, fu ll dose (MODERNA) Sridevi Ocasio MD Work Phone: [facility] Work Phone: 07-16-2020 COVID-19 vaccine, fu ll dose (MODERNA) Sridevi Ocasio MD Work Phone: [facility] Work Phone: 02-10-2020 influenza, injectabl e, quadrivalent, contains preservative Sridevi Ocasio MD Work Phone: [facility] Work Phone: 08-06-2019 zoster vaccine recombinant Sridevi Ocasio MD Work Phone: [facility] Work Phone: 04-08-2019 zoster vaccine recombinant Sridevi Ocasio MD Work Phone: [facility] Work Phone: 02-20-2019 pneumococcal conjuga te vaccine, 13 valent Sridevi Ocasio MD Work Phone: [facility] Work Phone: 03-18-2012 influenza virus vacc ine, unspecified formulation Sridevi Ocasio MD Work Phone: [facility] 08-16-2011 haemophilus influenz ae type b vaccine, HbOC conjugate Sridevi Ocasio MD Work Phone: [facility] Work Phone: 08-03-2011 Meningococcal, MCV4, unspecified conjugate formulation(groups A, C, Y and W-135) Sridevi Ocasio MD Work Phone: [facility] Work Phone: 08-03-2011 pneumococcal polysaccharide vaccine, 23 valent Sridevi Ocasio MD Work Phone: [facility] Work Phone: 04-11-2010 pneumococcal polysaccharide vaccine, 23 valent Bart Brooks DO Work Phone: [facility] Work Phone: 06-02-2009 novel influenza-H1N1 -09, preservative-free, injectable Sridevi Ocasio MD Work Phone: [facility] Work Phone: Payers Date Payer Category Payer Medicare A[employer]NA MEDICARE A ETNA MEDICARE PPO [id number] 2021-Present [phone] [address] [place] [id number] PPO [id number] 2019 Medicare AETNA MEDICARE A ETNA MEDICARE-ADVANTAGE PPO [id number] 2019-Present [address] [place] Fitz[place] [address] Medicare xxxxxxxx [id number] 2009 Medicare [id number] 2009 Medicare [id number] Social History Date Type Detail Facility Start: 2019 End: 07-05-2022 Tobacco smoking status NHIS Never smoker [facility] Start: 2019 End: 05-27-2019 Alcohol intake Ex-drinker (finding) [facility] Start: 2019 [facility] Start: 1935 [facility] Assigned At Not on file [email or web address] Start: 09-19-2021 End: 04-04-2023 Alcohol intake Current non-drinker of alcohol (finding) [facility] Start: 09-09-2021 End: 02-14-2022 Exposure to SARS-CoV-2 (event) Not sure [facility] Start: 07-05-2022 Tobacco use and exposure Smoke less tobacco non-user [facility] Start: 02-13-2023 End: 04-04-2023 History of Social function [facility] Start: 02-13-2023 End: 04-04-2023 Tobacco use panel [facility] Adult Depression Screening Assessment 0 [facility] Functional Status Date Assessment Result Facility 10-07-2021 Functional Status OBJECTIVE Posture: WNL Gait: amb with large step length and arm swing, no AD Transfers: able to perform sit to stand with no UE support Coordination: hand gestures, toe tapping, arm rolls - symmetyrical, no abnormalties AROM: WNL PROM: WNL MMT: grossly 4+/5 except hip adductors 4/5 and bilat hamstrings 4/5 Detention Officer strength L: 45 lbs - pt is left hand dominant Detention Officer strength R: 30 lb TUG- 8 seconds Gan out of 56 Activity-Specific Balance Confidence Scale (ABC): 87% [facility] Juan R Clinical Notes 05-27-2019 to 05-22-2023 Telephone Encounter - Ayanna Garza RN - 05/22/2023 1:58 PM ESTTelephone Encounter - Selvin Lowe MD - 05/22/2023 1:34 PM ESTTelephone Encounter - Ayanna Garza RN - 05/21/2023 2:32 PM EST Note Date & Type Note Facility 05-22-2023 Miscellaneous Notes Spoke with patient, message from provider given Stay hydrated unless advised to restrict fluids by cardiology or PCP. Should improve with time Clarification of symptom onset, thick secretions since covid. Biting tongue, and light headedness symptoms are not new. Patient reports these symptoms have been present for a few months. If she is worse the past week or so in the setting of Covid then that is normal and it can take a few weeks to resolve. Biting tongue, occasionally Pain in tongue side of tongue, where biting occurs Dry heaves, occasionally Light headed, in standing position. Legs give out, I go down Thick secretions (recent covid) Fluid intake I am trying to drink a lot of water Small glass of juice, water, and ensure today. Does not wear compression stockings. Uses walker for ambulation, uses Active with PT Covid, tested positive last week. Was prescribed antiviral, completed treatment Sinemet 2 tabs three times daily No missed or late doses No new medications, or recent changes to medications. Discussed fluid intake, small meals, and compression stocking and changing position slowly. Pt called for Dr. Lowe to make sure she's doing everything she should be doing for her PD. Pt stated the PD is working on her - [phone]. 04/04/23 FUV w/Dr. Lowe 10/08/23 FUV w/Gerry Lowe documented in this encounter [facility] 04-04-2023 Note HNO ID: [id number] Author: Selvin Lowe MD Service: ? Author Type: Physician Type: Progress Notes Filed: 04/04/2023 4:56 PM Note Text: [facility] - FOLLOW UP EVALUATION Chris Kothari MD [id number] [facility] [address] [facility] [address] I had the pleasure of seeing Ms. Haynes for follow up today. She is a 87 year old left-handed female with a history of IPD since 2009. She is seen with a son. Subjective Previous Plan-10/03/2022 Visit: Continue current Sinemet dose - Continue exercise - EEG - Patient's perception of importance for healthcare provider to let them know of research trials for which they may be eligible? Somewhat important Interested in clinical research? Not currently Interval History: Falls. Legs suddenly give out. Some lightheadedness but unclear if contributes. PCP checked orthostatics and reportedly negative but prescribed midodrine. She hasn't started it since pharmacy doesn't have it. Legs can feel wobbly with prolonged standing. More off balance when walking sometimes. Plans on going to [facility] for PT. Has back pain but not worse than arthritic pain over the rest of her body. Doesn't radiate. Parkinson's Medication Schedule - as of the start of the visit: Medications 8a 1p 6p Sinemet 25/100 2 2 2 Parkinson's Motor Complications Medication duration: 5 hours Wearing off: no Dyskinesia: no Prior Anti-Parkinson Therapies Carbidopa/Levodopa Questionnaires In addition, the following areas that may be affected by abnormal involuntary movements were evaluated: Daily activities Difficulties with eating: Yes (mild) Difficulties in dressing: Yes (slight) Difficulties with hygiene activities: 0 (none) Difficulties with handwriting: Yes (slight) Difficulties with doing hobbies and other activities: Yes (slight) Difficulties turning in bed: mostly sleeps on one side Difficulties getting out of bed, car or chair: sometimes takes a couple of tries Tremors/Gait/Balance Shaking or tremors: Walking and balance problems: Yes (slight) Number of falls in the Last Month: 2 Gait freezing: Yes (slight) Autonomic/Pain Lightheadeness on standing: Yes (moderate) Urinary problems: Yes (slight) Constipation problems: Yes (slight) Pain and other sensations: Yes (slight) Speech/Swallowing Speech problems: Yes (slight) Drooling: Yes (mild) Chewing and swallowing problems: Yes (slight) Sleep/Fatigue Sleep problems: Yes (slight) sleeps well. Daytime sleepiness: Yes (mild) would like more energy. naps Fatigue: Yes (mild) Mood/Behavior Depression: PHQ-9 Score: 2 usually representing no significant (0-4) depression. Anxiety: Finally, the following table shows the patient's overall global physical and mental health using the PROMIS scale: PROMIS-10 Flowsheet Row Office Visit from 04/04/2023 in Neurology Office Visit from 09/19/2021 in Neurological [facility] Global Physical Health T Score -- 50.8 Global Mental Health T Score -- 53.3 0-10 Standard Pain Scale 4 4 *PROMIS-10 scoring scale: mean = 50, over 50 is above average, under 50 is below average In addition, the following non-motor symptoms and palliative concerns were evaluated: Sleep/Fatigue: REM sleep behavior disorder: Yes Occasionally. no safety concerns Restless Legs Syndrome: Yes some Leg swelling: Impaired sense of smell: Cognition: Cognitive impairment: no reasonable for age. manages all ADLs. drives [employer] Cognitive assessment: Hallucinations and delusions: yes Occasionally. Animals. Insight retained. 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 MULTIVITAMIN ORAL Take by mouth once daily. Ascorbic Acid 1,000 mg tablet Take by mouth once daily. metoprolol tartrate, short acting, (LOPRESSOR) 12.5 mg tab Take 12.5 mg by mouth twice daily. (Patient not taking: Reported on 02/13/2023) No current facility-administered medications for this visit. Objective Vital Signs: Ht 152.4 cm (5') Wt 44 kg (97 lb) SpO2 98% BMI 18.94 kg/m? Orthostatic Vitals: Sitting: BP 121/76 Pulse 86 Standing: BP 112/69 Pulse 91 Weight: 44 kg (97 lb) Height: 152.4 cm (5') No LMP recorded. Patient is postmenopausal. Body mass index is 18.94 kg/m?. General Physical Examination: General: Awake, alert, interactive, no acute distress, good nutritional status, normal development, we (more content not included)... [facility] 04-04-2023 History of Present illness Narrative [facility] - FOLLOW UP EVALUATION Chris Kothari MD [address] [facility] [address] [facility] [id number] I had the pleasure of seeing Ms. Haynes for follow up today. She is a 87 year old left-handed female with a history of IPD since 2009. She is seen with a son. Subjective Previous Plan-10/03/2022 Visit: Continue current Sinemet dose - Continue exercise - EEG - Patient's perception of importance for healthcare provider to let them know of research trials for which they may be eligible? Somewhat important Interested in clinical research? Not currently Interval History: Falls. Legs suddenly give out. Some lightheadedness but unclear if contributes. PCP checked orthostatics and reportedly negative but prescribed midodrine. She hasn't started it since pharmacy doesn't have it. Legs can feel wobbly with prolonged standing. More off balance when walking sometimes. Plans on going to [facility] for PT. Has back pain but not worse than arthritic pain over the rest of her body. Doesn't radiate. Parkinson's Medication Schedule - as of the start of the visit: Medications 8a 1p 6p Sinemet 25/100 2 2 2 Parkinson's Motor Complications Medication duration: 5 hours Wearing off: no Dyskinesia: no Prior Anti-Parkinson Therapies Carbidopa/Levodopa Questionnaires In addition, the following areas that may be affected by abnormal involuntary movements were evaluated: Daily activities Difficulties with eating: Yes (mild) Difficulties in dressing: Yes (slight) Difficulties with hygiene activities: 0 (none) Difficulties with handwriting: Yes (slight) Difficulties with doing hobbies and other activities: Yes (slight) Difficulties turning in bed: mostly sleeps on one side Difficulties getting out of bed, car or chair: sometimes takes a couple of tries Tremors/Gait/Balance Shaking or tremors: Walking and balance problems: Yes (slight) Number of falls in the Last Month: 2 Gait freezing: Yes (slight) Autonomic/Pain Lightheadeness on standing: Yes (moderate) Urinary problems: Yes (slight) Constipation problems: Yes (slight) Pain and other sensations: Yes (slight) Speech/Swallowing Speech problems: Yes (slight) Drooling: Yes (mild) Chewing and swallowing problems: Yes (slight) Sleep/Fatigue Sleep problems: Yes (slight) sleeps well. Daytime sleepiness: Yes (mild) would like more energy. naps Fatigue: Yes (mild) Mood/Behavior Depression: PHQ-9 Score: 2 usually representing no significant (0-4) depression. Anxiety: Finally, the following table shows the patient's overall global physical and mental health using the PROMIS scale: PROMIS-10 Flowsheet Row Office Visit from 04/04/2023 in Neurology Office Visit from 09/19/2021 in [facility] Physical [facility] T Score -- 50.8 Global Mental Health T Score -- 53.3 0-10 Standard Pain Scale 4 4 *PROMIS-10 scoring scale: mean = 50, over 50 is above average, under 50 is below average In addition, the following non-motor symptoms and palliative concerns were evaluated: Sleep/Fatigue: REM sleep behavior disorder: Yes Occasionally. no safety concerns Restless Legs Syndrome: Yes some Leg swelling: Impaired sense of smell: Cognition: Cognitive impairment: no reasonable for age. manages all ADLs. drives [employer] Cognitive assessment: Hallucinations and delusions: yes Occasionally. Animals. Insight retained. 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 MULTIVITAMIN ORAL Take by mouth once daily. Ascorbic Acid 1,000 mg tablet Take by mouth once daily. metoprolol tartrate, short acting, (LOPRESSOR) 12.5 mg tab Take 12.5 mg by mouth twice daily. (Patient not taking: Reported on 02/13/2023) No current facility-administered medications for this visit. Objective Vital Signs: Ht 152.4 cm (5') Wt 44 kg (97 lb) SpO2 98% BMI 18.94 kg/m Orthostatic Vitals: Sitting: BP 121/76 Pulse 86 Standing: BP 112/69 Pulse 91 Weight: 44 kg (97 lb) Height: 152.4 cm (5') No LMP recorded. Patient is postmenopausal. Body mass index is 18.94 kg/m . General Physical Examination: General: Awake, alert, interactive, no acute distress, good nutritional status, normal development, well-kept General Neurological Examination: Neurological Exam Mental Status Awake and alert. Language is fluent with no aphasia. Motor Right Left Hip flexion 5 5 Knee flexion 5 5 Dorsiflexion 5 Coordination Right: Udwclh-wu-dopu normal. Rapid alternating movement normal. Qyoi-fn-eqgz normal.Left: Skvirt-go-edep normal. Rapid alternating movement normal. Apgo-gf-wgtb normal. Gait Generally stable gait except for sudden deviations that she recovers from independently. Movement Disorders Scales Performed: MDS-UPDRS Motor subscale condition of exam Medication Off/On/Naiive ON Time of UPDRS 1351 Time of Last Medication 0800 Last Medication Taken Sinemet 25/100 mg 2 tab DBS Right N/A DBS Left N/A MDS-UPDRS Motor subscale scores Speech 1-Slight. Loss of modulation, diction or volume, but still all words easy to understand. Facial Expression 1-Slight. Minimal masked facies manifested only by decreased frequency of blinking. Rigidity Neck 0-Normal. No rigidity. Rigidity Right Upper Extremity 0-Normal. No rigidity. Rigidity Left Upper Extremity 0-Normal. No rigidity. Rigidity Right Lower Extremity 0-Normal. No rigidity. Rigidity Left Lower Extremity 0-Normal. No rigidity. Finger Taps Right 2-Mild. a) 3 to 5 interruptions during tapping, b) mild slowing, c) the amplitude decrements midway in the 10-tap sequence. Finger Taps Left 1-Slight. a) the regular rhythm is broken with one or two interruptions or hesitations of the tapping movement, b) slight slowing, c) the amplitude decrements near the end of the 10 taps. Hand Movements Right 0-Normal. No problem. Hand Movements Left 0-Normal. No problem. Arm Movements Right 0-Normal. No problems. Arm Movements Left 0-Normal. No problems. Toe Taps Right 1-Slight. a) the regular rhythm is broken with one or two interruptions or hesitations of the tapping movement, b) slight slowing, c) the amplitude decrements near the end of the ten taps. Toe Taps Left 1-Slight. a) the regular rhythm is broken with one or two interruptions or hesitations of the tapping movement, b) slight slowing, c) the amplitude decrements near the end of the ten taps. Leg Agility Right 0-Normal. No problems. Leg Agility Left 0-Normal. No problems. Arise From Chair 0-Normal. No problems. Able to arise quickly without hesitation. Gait 0-Normal. No problems. Gait Freezing 0-Normal. No freezing. Posture Stability 1-Slight. 3-5 steps, but subject recovers unaided. (deferred) Posture 2-Mild. Definite flexion, scoliosis or leaning to one side, but patient can correct posture to normal posture when asked to do so. Body Bradykinesia 1-Slight. Slight global slowness and poverty of spontaneous movements. Postural Tremor Hand Right 0-Normal. No tremor. Postural Tremor Hand Left 0-Normal. No tremor. Kinetic Tremor Right 0-Normal. No tremor. Kinetic Tremor Left 0-Normal. No tremor. Rest Tremor Amplitude Right Upper Extremity 0-Normal. No tremor. Rest Tremor Amplitude Left Upper Extremity 0-Normal. No tremor. Rest Tremor Amplitude Right Lower Extremity 0-Normal. No tremor. Rest Tremor Amplitude Left Lower Extremity 0-Normal. No tremor. Rest Tremor Amplitude Lip/Jaw 0-Normal. No tremor. Rest Tremor Constancy 0-Normal. No tremor. MDS-UPDRS Motor subscale totals Left Total 2 Right Total 3 Midline Total 6 Tremor Total / 10 0 PIGD Total / 3 1 Overall Total 11 % Change Compared to Last Filed Total Assessment and Plan: Assessment Ms. Haynes is a left-handed 87 year old year old female with IPD since 2009. Main complaint today is again imbalance. She has had recent falls. She attends multiple Parkinson's exercise classes per week. She has been referred back to PT by her PCP. Looks very well from a motor standpoint so additional Sinemet is unlikely to help and imbalance typically doesn't improve with medication. PCP prescribed midodrine but not orthostatic in office today. Encouraged to increase conservative management of the low BP. Continue with exercise. Gave fatigue handout. The following are the current problems noted and addressed during this visit: Parkinson's disease without dyskinesia or fluctuating manifestations (primary encounter diagnosis) Plan 04/04/2023 Visit: Continue your medications as you have been taking them. We are not making any changes today. If you feel you are not tolerating them or your symptoms are changing before your next appointment, please feel free to send me a [employer] message or contact the office - PT - Updated Movement Disorders Medication Schedule: Medications 8a 1p 6p Sinemet 25/100 2 2 2 Medical Decision Making: Problems: Moderate: 1+ chronic illnesses with change Risk: Moderate: Drug management Medical Decision Making Level: 4 - Moderate Thank you for allowing me to be part of the clinical care of this patient! I look forward to continued participation in the patient s care with you. Please do not hesitate to call with any questions. Sincerely, Selvin Lowe MD documented in this encounter [facility] 04-04-2023 Instructions Selvin Lowe MD - 04/04/2023 1:57 PM EDT Images from the original note were not included. It was a pleasure to see you today. We addressed the following diagnoses: Tongue biting Parkinson's disease without dyskinesia or fluctuating manifestations (primary encounter diagnosis) My recommendations are as follows: Continue your medications as you have been taking them. We are not making any changes today. If you feel you are not tolerating them or your symptoms are changing before your next appointment, please feel free to send me a [employer] message or contact the office Movement Disorders Medication Schedule: Medications 8a 1p 6p Sinemet 25/100 2 2 2 Return in about 6 months (around 10/04/2023). If there are any concerns before your next visit, please call or you can send a message through [email or web address]. You can also now schedule and select appointments through [email or web address]. Selvin Lowe MD Fatigue and Parkinson s If you experience fatigue and sleep problems, you are not alone. These are common symptoms of Parkinson s disease (PD). In fact, fatigue can occur at any stage of Parkinson s, and many people report that fatigue is one of the symptoms that affects them the most. It can have a greater impact on your quality of life than motor symptoms like stiffness, slowness or walking problems. But doctors don t always ask about fatigue, and people with Parkinson s and their care partners don t always know to bring it up. So how can you cope with and manage fatigue to feel your best? First, it is important to understand the causes. Then you can learn strategies to ease its impact. What Is Fatigue? Fatigue is a feeling of being extremely tired, of being either physically or mentally weary. Most people talk about fatigue as a result of some type of exertion--being tired from working or from thinking--but sometimes it is there all the time. It is different than sleepiness. When you re sleepy, you want to fall asleep and can do so easily. No matter how extreme, fatigue does not usually result in sleep, even in sedentary situations. People who are fatigued struggle to get through normal daily activities. They have difficulty concentrating and sleeping, decreased stamina, issues with memory and productivity, and even anxiety and depression. You might find yourself skipping social engagements because you feel like you just don t have the energy or motivation. If you notice any of these symptoms and feel fatigued, talk to your healthcare provider. Causes of Fatigue Biology In Parkinson s, fatigue is not just your body s reaction to PD symptoms, or not sleeping well. Fatigue can be a result of the same brain changes that lead to motor symptoms, though the level of fatigue is not necessarily related to the severity of motor symptoms. People who have severe fatigue early in their Parkinson s tend to stay fatigued. Lifestyle While it might sound counterintuitive, not exercising and leading a sedentary lifestyle can actually increase your fatigue. Tip: Fight Parkinson s and fatigue by exercising at least 2.5 hours per week for a better quality of life. Medications Dopamine agonists (e.g., ropinirole/Mirapex and pramipexole/Requip) can cause fatigue and daytime sleepiness. Tip: Reducing these medication may help. However, it is a delicate balance between good motor symptom control and excessive fatigue. Akinesia Akinesia, or trouble starting a movement, often feels like fatigue. A person with this symptom must move slowly and will find it hard to finish a task in a regular amount of time. Everyday tasks such as getting dressed can take a lot of effort, as it takes more concentration to perform tasks that are no longer automatic. Tip: Keep track of times during the day when akinesia is better and medications are working well. Energy-consuming tasks can then be done at these times when movement is easier. Muscle Fatigue PD symptoms like muscle stiffness, cramping, tremor or shaking, and akinesia put stress on a person s muscles. To move with these symptoms, muscles have to work hard and often against each other. With tremor, the constant shaking can quickly fatigue muscles. On the other hand, muscles that do not move enough are not well-conditioned, and they can become smaller (atrophied). Loss of muscle strength decreases stamina and endurance. For many people, this decrease feels like fatigue. Tip: As described above, some Parkinson s motor symptoms can cause fatigue. Anti-Parkinson s medications treat motor symptoms, which in turn can help reduce fatigue. However, after being on dopaminergic therapy for a while, many people experience dyskinesia (fidgety, involuntary movements). Like tremor, these movements can also cause fatigue. The only treatment available to keep muscles well-conditioned is a regular exercise program. People who include exercise as a part of their daily routine have less fatigue! Changes in Mobility Many people with Parkinson s disease experience changes in their ability to move throughout the day. These changes are often related to when you take your medications. You are better able to move after your medications take effect, and you might find it more difficult to move as the medication wears off, before your next dose. Tip: Often, people try to get everything done in the morning after their first dose of medication, when they feel well and rested. But too much activity in the morning can lead to fatigue. Time your periods of activity for maximum mobility, but also pace yourself and allow for rest periods. Insomnia Some sleep disorders, like sleep apnea and restless legs syndrome, contribute to daytime sleepiness, but people with insomnia complain of fatigue. Tip: If nighttime insomnia is a problem, avoid naps during the day, which can make you less sleepy at night. Depression It is estimated that at least 50% of people with Parkinson s will experience some form of depression during their illness. Fatigue is a common symptom of depression and is often reported as a lack of motivation or a loss of energy. Tip: A combination of counseling and medication is most effective at treating depression. When successful, people begin to feel less tired and are more willing to participate fully in activities. Working with Your Healthcare Provider to Manage Fatigue If you are experiencing fatigue, ask yourself the following questions. Record the answers in a notebook or on your smartphone, and bring this information to your next doctor s appointment. When do I feel fatigued? How long do my feelings of fatigue last each day? Does my fatigue change with my PD symptoms? Does my fatigue change with the time that I take my medications? On a scale of one to ten, how fatigued am I in the morning, around noon, and in the afternoon? The answers to these questions can help you and your doctor work together to identify possible causes of the fatigue you are experiencing. To understand and address it, and to rule out non-Parkinson s causes, your healthcare provider will take a complete health history and do a physical exam. Sometimes problems not associated with PD, such as anemia, can explain the fatigue. If necessary, Parkinson s medications can be adjusted. The Parkinson s Foundation is committed to better understanding how to help people with PD overcome Fatigue. In 2017, we provided funding to two researchers studying fatigue. Flaco Valenzuela, Ph.D. at [facility] is studying Multi-modal Neuroimaging of Fatigue in Parkinson s Disease. This study will use neuroimaging to observe the brain changes underlying fatigue and will explore the use of blue light as a potential treatment. A therapy exposing the eyes to blue light has proven to decrease daytime sleepiness in people with traumatic brain injuries. This study will explore whether this remedy may also be beneficial for in people with PD. Bishnu Christensen M.D. at [facility] is studying Remotely Supervised Transcranial Direct Current Stimulation (tDCS) for At-home Treatment of Fatigue and Cognitive Slowing in Parkinson s Disease This study looks at whether a non-invasive, brain stimulation device paired with online cognitive training could alleviate fatigue and cognitive slowing in people with PD. This study uses a specially designed tDCS device through a new method of remote supervision. Treating Fatigue Medications for Parkinson s motor symptoms do not necessarily improve fatigue, although one study found that levodopa slowed the worsening of fatigue. Research in this area is in its early stages. Testosterone replacement and modafinil were tested but proved unsuccessful in the treatment of fatigue. In a small trial, methylphenidate (Ritalin) was found to be effective, but this and other stimulants have not been approved for treating Parkinson s disease. More studies are needed. To date, exercise is the best known therapy for fatigue. People with Parkinson s often say that they are too fatigued to exercise, but you will likely find that you actually feel more energetic after you exercise! When exercising, you should have reasonable expectations. Start slowly by walking or using an exercise bicycle for five minutes, and build up to 30 minutes a day. Done safely, there is no down side to exercise. It not only helps improve fatigue, but also can have a positive impact on overall sense of well-being, depression and sleep quality at night. Maximize Energy and Endurance Try to identify and reduce the major sources of stress and fatigue in your daily routine. Exercise regularly to build endurance and stamina. Keep mentally active. Boredom often leads to fatigue. Schedule adequate time for rest and sleep in your daily routine. Plan the highest level of activity and the most difficult daily tasks at times you are well rested and medications are working well. Take frequent breaks. Know your limits. Forcing too many activities into one time period will cause fatigue. Get help when needed. Delegate or hire help for tasks you find particularly stressful or tiring. Involve Your Team. Consult with an occupational therapist for an assessment and individual recommendations for energy conservation and enhancement. This is a patient education material provided by the Parkinson s Foundation. For more information and resources see https://www.parkinson.org/. [facility] is a Center of Excellence for the Parkinson s Foundation. Guidelines for the Treatment of orthostatic hypotension (low blood pressure upon standing) 1. Make all postural changes from lying to sitting or sitting to standing, slowly. 2. Drink to 2.0 -2.5 L of fluids per day. 3. Increase sodium in the diet to 3 - 5 g per day. IF THIS IS OK with your medical doctor. 4. Avoid large meals which can cause low blood pressure during digestion. It is better to eat smaller meals more often than three large meals. 5. Avoid alcohol. Alcohol can cause blood to pool in the legs which may worsen low blood pressure reactions when standing. 6. Perform lower extremity exercises to improve strength of the leg muscles. This will help prevent blood from a pooling in the legs when standing and walking. 7. Raise the head of the bed by 6 to 10 inches. The entire bed must be at an angle. Raising only the head portion of the bed at waist level or using pillows will not be effective. Raising the head of the bed will reduce urine formation overnight and there will be more volume in the circulation in the morning. 8. Drink 500 cc of water quickly as soon as you wake up in the morning BEFORE you even get out of bed. This will result in an increased blood pressure within 5 minutes of drinking the water. The effect will last up to one hour and may improve orthostatic intolerance. 9. Use custom fitted elastic support stockings. These will reduce a tendency for blood to pool in the legs when standing and may improve orthostatic intolerance. These have to be Thigh-high. Compression stockings that only reach the knees are not as helpful. 10. Use physical counter maneuvers such as leg crossing, squatting, or raising and resting the leg on a chair. These maneuvers increase blood pressure. documented in this encounter [facility] 03-15-2023 Note HNO ID: [id number] Author: Sadaf Brooke RT(R) Service: ? Author Type: Technologist Type: Progress Notes Filed: 03/15/2023 11:42 AM Note Text: Radiology Service Progress Note PATIENT NAME: Kayleen Haynes DATE OF SERVICE: March 15, 2023 TIME: 11:41 AM PATIENT IDENTITY VERIFICATION COMPLETED USING TWO (2) IDENTIFIERS: Name and Date of confirmed by patient verbally. FALL SCREENING: Has the patient had 2 falls in the last year or 1 fall with injury or currently using an Ambulatory Assistive Device (Walker, Cane, Wheelchair, Crutches, etc.)? Yes, Patient High Risk for Falls What interventions were put in place to prevent falls during this visit? Instructed Patient to Call for Help if Needed, Offered Assistance with Transfers/Clothing, Instructed Patient to Remain Seated (Not on Exam Table) Until Exam, and Increased Observations by Caregivers PATIENT GENDER DATA: Female. status: : No status: NO. PATIENT RELEVANT IMPLANT DATA REVIEWED: Yes RADIOLOGY DEPARTMENT: MR; Exam(s) Completed: Head: Routine Brain PERIPHERAL IV DATA: Not applicable SIGNED BY: RT Aroldo(R) March 15, 2023 11:41 AM [facility] 02-15-2023 Note HNO ID: [id number] Author: Noris Willard PT Service: ? Author Type: Physical Therapist Type: Progress Notes Filed: 02/15/2023 9:59 AM Note Text: 02/15/2023 [facility] PHYSICAL THERAPY DISCONTINUANCE OF CARE Plan of Care Period: Start of Care Date: 07/18/22 Last Visit Date: 07/18/2022 Therapy Program: Patient did not return for follow up care as planned. Please refer to last visit note for interventions provided for this episode of care. Assessment: Unable to formally assess goal achievement. Reason for Discontinuation of Care: Patient has not returned to therapy or scheduled additional follow-up appointments. Noris Willard, PT [facility] 02-13-2023 Note HNO ID: [id number] Author: Bart Brooks, Service: ? Author Type: Physician Type: Progress Notes Filed: 02/13/2023 12:20 PM Note Text: Diagnosis: 1) Lymphoproliferative disorder. HPI: The patient is a 87 yo female whom I saw in consultation at [facility] in 2006 for pancytopenia following an admission for sepsis. Bone marrow biopsy demonstrated a normocellular bone marrow with no evidence of myelodysplasia, lymphoma or leukemia. Flow cytometry showed no evidence of lymphoma or leukemia. The patient had an MRCP in December of 2006. That study showed mild prominence of the common bile duct with cholelithiasis and a contracted gallbladder. The spleen was noted to be unremarkable. She had an unremarkable CBC following her hospital discharge and 2006. She presented to the emergency department on 07/11/2011 with complaints of abdominal pain. She had woke up that morning with pain. It was associated with mild nausea. No vomiting, fever or chills. There was no diarrhea. The pain was located mainly in the left midabdomen. CT scan of the abdomen and pelvis in the ED revealed a mild degree of intrahepatic biliary ductal dilation with a common bile duct measuring 1.3 cm. There was moderate splenomegaly. Significantly, there was evidence of a linear low-density abnormality to the body the spleen suggestive of a splenic fracture. There was a tiny perisplenic fluid collection. There was retroperitoneal lymphadenopathy with nodes measuring greater than 10-15 mm in short axis. 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 The pathology review demonstrated tissue consistent with extramedullary hematopoiesis and focal intraparenchymal hemorrhage. There was no definite evidence of malignancy. PET done at [facility] 07/31/11: The PET scan revealed increased glucose metabolism in the lower abdominal/right upper pelvic retroperitoneum, periaortic in location demonstrating an SUV of 3.5. The largest corresponding hypermetabolic soft tissue abnormality was measured and axial diameter of 1.9 cm. There was also increased glucose concentration in the right posterior pelvic mesentery distinctly nodular presentation demonstrating a maximum SUV of 6.4. The uptake appear to be contiguous to the visualized intestinal tract. There was no other significant hypermetabolic abnormality. Work up included bone marrow biopsy that revealed-- BONE MARROW, ASPIRATE SMEAR AND CORE BIOPSY, WITH CLOT SECTION AND PERIPHERAL SMEAR (A-C): -INCREASED CIRCULATING LARGE GRANULAR LYMPHOCYTES, WORRISOME FOR LARGE GRANULAR LYMPHOCYTE LEUKEMIA, PCR STUDIES PENDING. -ATYPICAL B-CELL RICH LYMPHOID AGGREGATES, PCR STUDIES PENDING. -HYPERCELLULAR MARROW (40%) WITH TRILINEAGE HEMATOPOIESIS AND ADEQUATE MEGAKARYOCYTES. -IRON STORES PRESENT. -SEE COMMENT. Comment: PCR studies showed a polyclonal T-cell population. In light of this result, the increased large granular lymphocytes noted in the peripheral blood may represent a reactive finding. In contrast, PCR studies showed the presence of a monoclonal B-cell population. 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 Further classification of this process requires correlation with the clinical findings. If there is adenopathy, lymph node biopsy may be helpful in further classification of this small B-cell lymphoproliferative disorder. In the absence of adenopathy, these findings may represent a monoclonal B-cell lymphocytosis ( non-CLL phenotype). Received [address] 12/2011 showed mild/borderline adenopathy. Presents for follow up. Interim history: She continues to participate in Silver Sneakers 3 times a week and Delay the Disease (Parkinson's specific exercises) 2 days a week. No acute illnesses since last seen but she did have a presyncopal event a few weeks back. She was taken to the ER. Brain CT normal. Her heart rate was in the 40s. She had a blood pressure medication discontinued. She is feeling somewhat better but still has occasional orthostasis but no falls. No unusual bleeding or unexplained bruising. PMH, medications and allergies as below personally reviewed by me today. Any changes documented in appropriate section. ROS: Constitutional: See above. Neuro: Denies symptoms of neuropathy. HEENT: No recent change in voice, vision or hearing. Resp: Denies hemoptysis. Denies shortness of breath at rest. Denies CHRISTIE. CVS: Denies exertional chest pain, PND, orthopnea and LE edema. GI: Denies dysgeusia. Denies symptoms of stomatitis. Denies dysphagia and odynophagia. Denies reflux. : Denies dysuria or gross hematuria. No symptoms of bladder outlet obstruction. Endo: Denies hot flash (more content not included)... [facility] 02-13-2023 History of Present illness Narrative Diagnosis: 1) Lymphoproliferative disorder. HPI: The patient is a 87 yo female whom I saw in consultation at [facility] in 2006 for pancytopenia following an admission for sepsis. Bone marrow biopsy demonstrated a normocellular bone marrow with no evidence of myelodysplasia, lymphoma or leukemia. Flow cytometry showed no evidence of lymphoma or leukemia. The patient had an MRCP in December of 2006. That study showed mild prominence of the common bile duct with cholelithiasis and a contracted gallbladder. The spleen was noted to be unremarkable. She had an unremarkable CBC following her hospital discharge and 2007. She presented to the emergency department on 07/11/2011 with complaints of abdominal pain. She had woke up that morning with pain. It was associated with mild nausea. No vomiting, fever or chills. There was no diarrhea. The pain was located mainly in the left midabdomen. CT scan of the abdomen and pelvis in the ED revealed a mild degree of intrahepatic biliary ductal dilation with a common bile duct measuring 1.3 cm. There was moderate splenomegaly. Significantly, there was evidence of a linear low-density abnormality to the body the spleen suggestive of a splenic fracture. There was a tiny perisplenic fluid collection. There was retroperitoneal lymphadenopathy with nodes measuring greater than 10-15 mm in short axis. 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 The pathology review demonstrated tissue consistent with extramedullary hematopoiesis and focal intraparenchymal hemorrhage. There was no definite evidence of malignancy. PET done at [facility] 07/31/11: The PET scan revealed increased glucose metabolism in the lower abdominal/right upper pelvic retroperitoneum, periaortic in location demonstrating an SUV of 3.5. The largest corresponding hypermetabolic soft tissue abnormality was measured and axial diameter of 1.9 cm. There was also increased glucose concentration in the right posterior pelvic mesentery distinctly nodular presentation demonstrating a maximum SUV of 6.4. The uptake appear to be contiguous to the visualized intestinal tract. There was no other significant hypermetabolic abnormality. Work up included bone marrow biopsy that revealed-- BONE MARROW, ASPIRATE SMEAR AND CORE BIOPSY, WITH CLOT SECTION AND PERIPHERAL SMEAR (A-C): -INCREASED CIRCULATING LARGE GRANULAR LYMPHOCYTES, WORRISOME FOR LARGE GRANULAR LYMPHOCYTE LEUKEMIA, PCR STUDIES PENDING. -ATYPICAL B-CELL RICH LYMPHOID AGGREGATES, PCR STUDIES PENDING. -HYPERCELLULAR MARROW (40%) WITH TRILINEAGE HEMATOPOIESIS AND ADEQUATE MEGAKARYOCYTES. -IRON STORES PRESENT. -SEE COMMENT. Comment: PCR studies showed a polyclonal T-cell population. In light of this result, the increased large granular lymphocytes noted in the peripheral blood may represent a reactive finding. In contrast, PCR studies showed the presence of a monoclonal B-cell population. 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 Further classification of this process requires correlation with the clinical findings. If there is adenopathy, lymph node biopsy may be helpful in further classification of this small B-cell lymphoproliferative disorder. In the absence of adenopathy, these findings may represent a monoclonal B-cell lymphocytosis ( non-CLL phenotype). Received [address] 12/2011 showed mild/borderline adenopathy. Presents for follow up. Interim history: She continues to participate in ProgressuseaIconfinders 3 times a week and Delay the Disease (Parkinson's specific exercises) 2 days a week. No acute illnesses since last seen but she did have a presyncopal event a few weeks back. She was taken to the ER. Brain CT normal. Her heart rate was in the 40s. She had a blood pressure medication discontinued. She is feeling somewhat better but still has occasional orthostasis but no falls. No unusual bleeding or unexplained bruising. PMH, medications and allergies as below personally reviewed by me today. Any changes documented in appropriate section. ROS: Constitutional: See above. Neuro: Denies symptoms of neuropathy. HEENT: No recent change in voice, vision or hearing. Resp: Denies hemoptysis. Denies shortness of breath at rest. Denies CHRISTIE. CVS: Denies exertional chest pain, PND, orthopnea and LE edema. GI: Denies dysgeusia. Denies symptoms of stomatitis. Denies dysphagia and odynophagia. Denies reflux. : Denies dysuria or gross hematuria. No symptoms of bladder outlet obstruction. Endo: Denies hot flashes. Denies polyuria and polydipsia. Denies heat and cold intolerance. Musculoskeletal: Denies bone, back, joint and muscular pain. Derm: Denies rash. Denies jaundice and diffuse pruritis. Heme: See above. Psych: Normal mood. PHYSICAL EXAM: Vitals: Blood pressure 111/81, pulse 89, temperature 36.4 C (97.5 F), height 156 cm (5' 1.42 ), weight 43.5 kg (96 lb), SpO2 97 %. Frail-appearing and in no acute distress. EYES: Sclerae are anicteric bilaterally. LYMPHATIC: There is no palpable cervical, supraclavicular, axillary or inguinal adenopathy. RESPIRATORY: Inspiratory breath sounds are of normal intensity in all cary. CARDIOVASCULAR: Rhythm is irregular. ABDOMEN: The abdomen is nondistended. There is a small reducible hernia in the upper midline of the abdomen that is non-tender. Some tenderness with deep palpation but her abdomen is very thin and scaphoid and there is no obvious mass. Extremities: Free of edema. SKIN: No jaundice or rash. No petechiae. 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 No focal motor weakness. LABS: Component Latest Ref Rng & Units 07/15/2019 07/21/2020 08/15/2022 02/07/2023 WBC 3.70 - 11.00 k/uL 12.47 (H) 15.43 (H) 13.69 (H) 14.96 (H) RBC 3.90 - 5.20 m/uL 4.46 4.49 4.35 4.24 Hemoglobin 11.5 - 15.5 g/dL 13.3 13.5 13.2 12.8 Hematocrit 36.0 - 46.0 % 41.4 41.7 40.0 39.4 MCV 80.0 - 100.0 fL 92.8 92.9 92.0 92.9 MCH 26.0 - 34.0 pg 29.8 30.1 30.3 30.2 MCHC 30.5 - 36.0 g/dL 32.1 32.4 33.0 32.5 RDW-CV 11.5 - 15.0 % 14.2 14.0 13.1 13.5 Platelet Count 150 - 400 k/uL 273 322 343 392 MPV 9.0 - 12.7 fL 10.0 9.1 9.0 9.0 NRBC /100 WBC 0.0 0.0 Absolute nRBC <0.01 k/uL <0.01 <0.01 Neut% % 39 33.0 36.0 45.0 Abs Neut (ANC) 1.45 - 7.50 k/uL 4.86 5.09 4.93 6.73 Lymph% % 48 56.0 47.0 43.0 Abs Lymph 1.00 - 4.00 k/uL 8.64 (H) 6.98 (H) 6.43 (H) Gratiot% % 6 7.0 7.0 6.0 Abs [place]iot <0.87 k/uL 0.75 1.08 (H) 0.96 (H) 0.90 (H) Eosin% % 6 2.0 6.0 5.0 Abs Eosin <0.46 k/uL 0.75 (H) 0.31 0.82 (H) 0.75 (H) Baso% % 1 2.0 0.0 1.0 Abs Baso <0.11 k/uL 0.12 (H) 0.31 (H) 0.00 0.15 (H) Platelet Estimate Platelet estimate adequate Platelet estimate adequate Adequate Adequate Red Cell Morph Reviewed: see results of individual morphologies Reviewed: see results of individual morphologies Acanthocyte Few Few Few Few Ovalocytes Few Few Few RBC Fragments None Seen Few (A) Few (A) Tear Drop Few Few Love [place] Bodies Occasional Occasional DTYPE Manual Manual Realym% % 4.0 ANC(includeSEG+BAND) k/uL 5.09 Diff Type Manual Diff Abs Lym 1.00 - 4.00 K/uL 5.99 (H) Target Cells Few Anisocytosis Present LD 135 - 214 U/L 249 (H) ASSESSMENT/PLAN: (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 Assessment: -Minimal RP and pelvic mesenteric lymphadenopathy that was asymptomatic. -Previous splenic fracture secondary to extramedullary hematopoiesis. -Received an 8-week course of rituximab 10 years ago. -No concerning symptoms or exam findings. -Reviewed labs with her. -Again reviewed the expected overall natural history and good prognosis as well as indications for treatment. None presently. -CT abdomen pelvis 03/07/2022 ordered to evaluate new midline hernia demonstrated mildly enlarged retroperitoneal nodes with the largest measuring 3.3 cm. Stable when compared to CT 2012. -No clear indication for reimaging of the abdomen in the absence of symptoms. Plan: -CBC/LDH. -OV/CBC/LDH in about 6 months. Portions of this documentation were copied and pasted from previous office visit notes in order to provide a cohesive continuity of the history. The note has been reviewed and edited and updated as necessary. I spent a total of 15 minutes on the date of the service which included preparing to see the patient, [id number] patient care, completing clinical documentation, obtaining and/or reviewing separately obtained history, performing a medically appropriate examination, counseling and educating the patient/family/caregiver, communicating with other HCPs (not separately reported), and communicating results to the patient/family/caregiver. Bart Brooks DO documented in this encounter [facility] 11-20-2022 Miscellaneous Notes Patient called asking for EEG order to be faxed to [facility] diagnostic scheduling. Fax number [phone]. Order, demographics, and coverage faxed as requested. documented in this encounter [facility] 10-03-2022 Note HNO ID: [id number] Author: Selvin Lowe MD Service: ? Author Type: Physician Type: Progress Notes Filed: 10/03/2022 8:12 PM Note Text: [facility] - FOLLOW UP EVALUATION No referring provider defined for this encounter. Chris Kothari MD [id number] [address] I had the pleasure of seeing Ms. Haynes for follow up today. She is a 87 year old left-handed female with a history of IPD since 2009. She is seen with a son. Subjective Previous Plan-07/05/2022 Visit with II: Increase carbidopa-levodopa to 2 tablets at 8 am, 1 pm, and 6 pm Physical therapy Follow-up in 6 months Interested in clinical research? Not currently Interval History: Transferring care from Dr. Ocasio due to distance. Off balance. Goes 3 times per week to [facility]. And 2 days at [email or web address]. Has had 3 falls within the past 12 months. Right foot catches the floor and she trips. Sometimes freezing. Sometimes lightheaded. Has been drinking more water the past 1- 2 months. Up 3-4 times to bathroom at night. Drinks 1 cup coffee per day. Has done some PT lately. Last time was last week and discharged. Not needing assistive device and doesn't want one. Sinemet increased last visit. Thinks it helps some. Maybe more tired. Probably worth taking higher dose. Mild dyskinesia is worse. Can be worse when standing up. Can affect balance. Doses were lasting 4 hours at 1.5 tabs. Does ok through the night. Tired all the time, no energy. Occasional full body jerks. When falling asleep, starting to relax. Sometimes bites her tongue for the past few months. Just happens. Sometimes wakes up in the morning feeling she has bitten it. Other times she is awake and not related to chewing or talking. No dyskinesia in her mouth or tongue. Happens a couple of times per month. More often when awake. Last time was 1-2 weeks ago. No past history of seizures. No trouble chewing food. Parkinson's Medication Schedule - as of the start of the visit: Medications 8a 1p 6p Sinemet 25/100 2 2 2 Questionnaires In addition, the following areas that may be affected by abnormal involuntary movements were evaluated: Daily activities Difficulties with eating: Yes (slight) Difficulties in dressing: Yes (slight) Difficulties with hygiene activities: Yes (slight) Difficulties with handwriting: Yes (slight) Difficulties with doing hobbies and other activities: Yes (slight) Difficulties turning in bed: Yes (slight) Difficulties getting out of bed, car or chair: 0 (none) Tremors/Gait/Balance Shaking or tremors: 0 (none) Walking and balance problems: Yes (slight) Number of falls in the Last Month: 0 Gait freezing: Yes (slight) Autonomic/Pain Lightheadeness on standing: yes Urinary problems: nocturia. ok during the day Constipation problems: sometimes. metamucil works Pain and other sensations: Yes (slight) Speech/Swallowing Speech problems: Yes (slight) Drooling: Yes (mild) Chewing and swallowing problems: 0 (none) Sleep/Fatigue Sleep problems: Yes (mild) Daytime sleepiness: Fatigue: yes In addition, the following non-motor symptoms and palliative concerns were evaluated: Sleep/Fatigue: REM sleep behavior disorder: Yes Occasionally. no safety concerns Restless Legs Syndrome: Yes some Leg swelling: Impaired sense of smell: Cognition: Cognitive impairment: no reasonable for age. manages all ADLs. drives [employer] Cognitive assessment: Hallucinations and delusions: yes Occasionally. Animals. Insight retained. Apathy: Impulse control disorder: Palliative Concerns: Caregiver burden: Spiritual concerns: Advanced directives on file: Palliative services: Therapy and Exercise: Last PT Date: Last OT Date: Last ST Date: Exercises Regularly: ALLERGIES Allergen Reactions Environmental [Othe* Patient has seasonal allergies Penicillins Rash Tramadol GI Upset Current Outpatient Medications Medication Sig carbidopa-levodopa (SINEMET) 25-100 mg per tablet 2 tablet 3 times a day at 8am, 1pm and 6pm psyllium husk (METAMUCIL ORAL) Take 1 teaspoonful by mouth once daily as needed. metoprolol tartrate, short acting, (LOPRESSOR) 12.5 mg tab Take 12.5 mg by mouth twice daily. MULTIVITAMIN ORAL Take by mouth once daily. Ascorbic Acid 1,000 mg tablet With Zahida hips daily No current facility-administered medications for this visit. Objective Vital Signs: Ht 154.9 cm (5' 1 ) Wt 47 kg (103 lb 11.2 oz) SpO2 100% BMI 19.59 kg/m? Orthostatic Vitals: Sitting: BP 153/75 Pulse 65 Standing: BP 129/84 Pulse 79 Weight: 47 kg (103 lb 11.2 oz) Height: 154.9 cm (5' 1 ) No LMP recorded. Patient is postmenopausal. Body mass index is 19.59 kg/m?. General Physical Examination: General: Awake, alert, interactive, no acute distress, good nutritional status, normal development, well-kept General Neurological Examination: Neurological Exam Men (more content not included)... [facility] 08-15-2022 Note HNO ID: [id number] Author: Bart Brooks, DO Service: ? Author Type: Physician Type: Progress Notes Filed: 08/15/2022 11:34 AM Note Text: Diagnosis: 1) Lymphoproliferative disorder. HPI: The patient is a 86 yo female whom I saw in consultation at [facility] in 2006 for pancytopenia following an admission for sepsis. Bone marrow biopsy demonstrated a normocellular bone marrow with no evidence of myelodysplasia, lymphoma or leukemia. Flow cytometry showed no evidence of lymphoma or leukemia. The patient had an MRCP in December of 2006. That study showed mild prominence of the common bile duct with cholelithiasis and a contracted gallbladder. The spleen was noted to be unremarkable. She had an unremarkable CBC following her hospital discharge and 2006. She presented to the emergency department on 07/11/2011 with complaints of abdominal pain. She had woke up that morning with pain. It was associated with mild nausea. No vomiting, fever or chills. There was no diarrhea. The pain was located mainly in the left midabdomen. CT scan of the abdomen and pelvis in the ED revealed a mild degree of intrahepatic biliary ductal dilation with a common bile duct measuring 1.3 cm. There was moderate splenomegaly. Significantly, there was evidence of a linear low-density abnormality to the body the spleen suggestive of a splenic fracture. There was a tiny perisplenic fluid collection. There was retroperitoneal lymphadenopathy with nodes measuring greater than 10-15 mm in short axis. 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 The pathology review demonstrated tissue consistent with extramedullary hematopoiesis and focal intraparenchymal hemorrhage. There was no definite evidence of malignancy. PET done at [facility] 07/31/11: The PET scan revealed increased glucose metabolism in the lower abdominal/right upper pelvic retroperitoneum, periaortic in location demonstrating an SUV of 3.5. The largest corresponding hypermetabolic soft tissue abnormality was measured and axial diameter of 1.9 cm. There was also increased glucose concentration in the right posterior pelvic mesentery distinctly nodular presentation demonstrating a maximum SUV of 6.4. The uptake appear to be contiguous to the visualized intestinal tract. There was no other significant hypermetabolic abnormality. Work up included bone marrow biopsy that revealed-- BONE MARROW, ASPIRATE SMEAR AND CORE BIOPSY, WITH CLOT SECTION AND PERIPHERAL SMEAR (A-C): -INCREASED CIRCULATING LARGE GRANULAR LYMPHOCYTES, WORRISOME FOR LARGE GRANULAR LYMPHOCYTE LEUKEMIA, PCR STUDIES PENDING. -ATYPICAL B-CELL RICH LYMPHOID AGGREGATES, PCR STUDIES PENDING. -HYPERCELLULAR MARROW (40%) WITH TRILINEAGE HEMATOPOIESIS AND ADEQUATE MEGAKARYOCYTES. -IRON STORES PRESENT. -SEE COMMENT. Comment: PCR studies showed a polyclonal T-cell population. In light of this result, the increased large granular lymphocytes noted in the peripheral blood may represent a reactive finding. In contrast, PCR studies showed the presence of a monoclonal B-cell population. 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 Further classification of this process requires correlation with the clinical findings. If there is adenopathy, lymph node biopsy may be helpful in further classification of this small B-cell lymphoproliferative disorder. In the absence of adenopathy, these findings may represent a monoclonal B-cell lymphocytosis ( non-CLL phenotype). Received [address] 12/2011 showed mild/borderline adenopathy. Presents for follow up. Interim history: She continues to participate in Silver Sneakers 3 times a week and Delay the Disease (Parkinson's specific exercises) 2 days a week. Subjectively balance is getting worse from the Parkinson's but she continues to live independently and is capable of her ADLs and IADLs. Her appetite is normal. She has had no abdominal pain. Ventral hernia hasn't been symptomatic, I haven't noticed it. No unusual bleeding or unexplained bruising. PMH, medications and allergies as below personally reviewed by me today. Any changes documented in appropriate section. ROS: Constitutional: See above. Neuro: Denies symptoms of neuropathy. HEENT: No recent change in voice, vision or hearing. Resp: Denies hemoptysis. Denies shortness of breath at rest. Denies CHRISTIE. CVS: Denies exertional chest pain, PND, orthopnea and LE edema. GI: Denies dysgeusia. Denies symptoms of stomatitis. Denies dysphagia and odynophagia. Denies reflux. : Denies dysuria or gross hematuria. No symptoms of bladder outlet obstruction. Endo: Denies hot flashes. Denies polyuria and polydipsia. Denies (more content not included)... [facility] 08-15-2022 History of Present illness Narrative Diagnosis: 1) Lymphoproliferative disorder. HPI: The patient is a 86 yo female whom I saw in consultation at [facility] in 2006 for pancytopenia following an admission for sepsis. Bone marrow biopsy demonstrated a normocellular bone marrow with no evidence of myelodysplasia, lymphoma or leukemia. Flow cytometry showed no evidence of lymphoma or leukemia. The patient had an MRCP in December of 2006. That study showed mild prominence of the common bile duct with cholelithiasis and a contracted gallbladder. The spleen was noted to be unremarkable. She had an unremarkable CBC following her hospital discharge and 2006. She presented to the emergency department on 07/11/2011 with complaints of abdominal pain. She had woke up that morning with pain. It was associated with mild nausea. No vomiting, fever or chills. There was no diarrhea. The pain was located mainly in the left midabdomen. CT scan of the abdomen and pelvis in the ED revealed a mild degree of intrahepatic biliary ductal dilation with a common bile duct measuring 1.3 cm. There was moderate splenomegaly. Significantly, there was evidence of a linear low-density abnormality to the body the spleen suggestive of a splenic fracture. There was a tiny perisplenic fluid collection. There was retroperitoneal lymphadenopathy with nodes measuring greater than 10-15 mm in short axis. 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 The pathology review demonstrated tissue consistent with extramedullary hematopoiesis and focal intraparenchymal hemorrhage. There was no definite evidence of malignancy. PET done at [facility] 07/31/11: The PET scan revealed increased glucose metabolism in the lower abdominal/right upper pelvic retroperitoneum, periaortic in location demonstrating an SUV of 3.5. The largest corresponding hypermetabolic soft tissue abnormality was measured and axial diameter of 1.9 cm. There was also increased glucose concentration in the right posterior pelvic mesentery distinctly nodular presentation demonstrating a maximum SUV of 6.4. The uptake appear to be contiguous to the visualized intestinal tract. There was no other significant hypermetabolic abnormality. Work up included bone marrow biopsy that revealed-- BONE MARROW, ASPIRATE SMEAR AND CORE BIOPSY, WITH CLOT SECTION AND PERIPHERAL SMEAR (A-C): -INCREASED CIRCULATING LARGE GRANULAR LYMPHOCYTES, WORRISOME FOR LARGE GRANULAR LYMPHOCYTE LEUKEMIA, PCR STUDIES PENDING. -ATYPICAL B-CELL RICH LYMPHOID AGGREGATES, PCR STUDIES PENDING. -HYPERCELLULAR MARROW (40%) WITH TRILINEAGE HEMATOPOIESIS AND ADEQUATE MEGAKARYOCYTES. -IRON STORES PRESENT. -SEE COMMENT. Comment: PCR studies showed a polyclonal T-cell population. In light of this result, the increased large granular lymphocytes noted in the peripheral blood may represent a reactive finding. In contrast, PCR studies showed the presence of a monoclonal B-cell population. 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 Further classification of this process requires correlation with the clinical findings. If there is adenopathy, lymph node biopsy may be helpful in further classification of this small B-cell lymphoproliferative disorder. In the absence of adenopathy, these findings may represent a monoclonal B-cell lymphocytosis ( non-CLL phenotype). Received [address] 12/2011 showed mild/borderline adenopathy. Presents for follow up. Interim history: She continues to participate in Silver Sneakers 3 times a week and Delay the Disease (Parkinson's specific exercises) 2 days a week. Subjectively balance is getting worse from the Parkinson's but she continues to live independently and is capable of her ADLs and IADLs. Her appetite is normal. She has had no abdominal pain. Ventral hernia hasn't been symptomatic, I haven't noticed it. No unusual bleeding or unexplained bruising. PMH, medications and allergies as below personally reviewed by me today. Any changes documented in appropriate section. ROS: Constitutional: See above. Neuro: Denies symptoms of neuropathy. HEENT: No recent change in voice, vision or hearing. Resp: Denies hemoptysis. Denies shortness of breath at rest. Denies CHRISTIE. CVS: Denies exertional chest pain, PND, orthopnea and LE edema. GI: Denies dysgeusia. Denies symptoms of stomatitis. Denies dysphagia and odynophagia. Denies reflux. : Denies dysuria or gross hematuria. No symptoms of bladder outlet obstruction. Endo: Denies hot flashes. Denies polyuria and polydipsia. Denies heat and cold intolerance. Musculoskeletal: Denies bone, back, joint and muscular pain. Derm: Denies rash. Denies jaundice and diffuse pruritis. Heme: See above. Psych: Normal mood. PHYSICAL EXAM: Vitals: Blood pressure 120/76, pulse (!) 48, temperature 36.1 C (97 F), temperature source Temporal, height 156.2 cm (5' 1.5 ), weight 45.6 kg (100 lb 8 oz). Frail-appearing and in no acute distress. EYES: Sclerae are anicteric bilaterally. LYMPHATIC: There is no palpable cervical, supraclavicular, axillary or inguinal adenopathy. RESPIRATORY: Inspiratory breath sounds are of normal intensity in all cary. CARDIOVASCULAR: Rhythm is irregular. ABDOMEN: The abdomen is nondistended. There is a small reducible hernia in the upper midline of the abdomen that is non-tender today. Extremities: Free of edema. SKIN: No jaundice or rash. No petechiae. 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 No focal motor weakness. LABS: Component Latest Ref Rng & Units 01/19/2020 01/18/2021 08/16/2021 02/14/2022 08/15/2022 WBC 3.70 - 11.00 k/uL 16.11 (H) 13.75 (H) 14.27 (H) 14.47 (H) 13.69 (H) RBC 3.90 - 5.20 m/uL 4.21 4.25 4.30 4.19 4.35 Hemoglobin 11.5 - 15.5 g/dL 12.6 13.2 13.3 12.9 13.2 Hematocrit 36.0 - 46.0 % 38.6 39.5 40.0 39.1 40.0 MCV 80.0 - 100.0 fL 91.7 92.9 93.0 93.3 92.0 MCH 26.0 - 34.0 pg 29.9 31.1 30.9 30.8 30.3 MCHC 30.5 - 36.0 g/dL 32.6 33.4 33.3 33.0 33.0 RDW-CV 11.5 - 15.0 % 13.6 14.1 13.5 13.7 13.1 Platelet Count 150 - 400 k/uL 335 322 324 337 343 MPV 9.0 - 12.7 fL 9.3 9.1 9.6 9.3 9.0 NRBC /100 WBC 0.0 Absolute nRBC <0.01 k/uL <0.01 Neut% % 37.0 42.0 43.0 42.0 Abs Neut (ANC) 1.45 - 7.50 k/uL 5.96 5.78 5.14 6.08 Lymph% % 51.0 44.0 44.0 45.0 Abs Lymph 1.00 - 4.00 k/uL 8.22 (H) 6.05 (H) 6.84 (H) 6.51 (H) [place]% % 6.0 11.0 9.0 6.0 Abs [place] <0.87 k/uL 0.97 (H) 1.51 (H) 1.38 (H) 0.87 (H) Eosin% % 4.0 3.0 3.0 5.0 Abs Eosin <0.46 k/uL 0.64 (H) 0.41 0.44 0.72 (H) Baso% % 2.0 0.0 1.0 2.0 Abs Baso <0.11 k/uL 0.32 (H) 0.00 0.43 (H) 0.29 (H) Platelet Estimate Platelet estimate adequate Platelet estimate adequate Adequate Adequate Red Cell Morph Reviewed: see results of individual morphologies Ovalocytes Few Few Few Few RBC Fragments None Seen Few (A) Few (A) Target Cells Few Few Few Few [place] Bodies Occasional Occasional DTYPE Manual ANC(includeSEG+BAND) k/uL 5.96 5.78 Acanthocyte Few Few Diff Type Manual Diff Manual Diff ASSESSMENT/PLAN: (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 Assessment: -Minimal RP and pelvic mesenteric lymphadenopathy that was asymptomatic. -Previous splenic fracture secondary to extramedullary hematopoiesis. -Received an 8-week course of rituximab 10 years ago. -No concerning symptoms or exam findings. -Reviewed labs with her. -Again reviewed the expected overall natural history and good prognosis as well as indications for treatment. None presently. -CT abdomen pelvis 03/07/2022 ordered to evaluate new midline hernia demonstrated mildly enlarged retroperitoneal nodes with the largest measuring 3.3 cm. Stable when compared to CT 2012. -No clear indication for reimaging of the abdomen in the absence of symptoms. Plan: -OV/CBC/LDH in about 6 months. Portions of this documentation were copied and pasted from previous office visit notes in order to provide a cohesive continuity of the history. The note has been reviewed and edited and updated as necessary. During this patient visit I have spent approximately 15 minutes out of 20 in counseling regarding test results and coordinating care. Bart Brooks DO documented in this encounter [facility] 07-18-2022 Note HNO ID: [id number] Author: Noris Willard PT Service: ? Author Type: Physical Therapist Type: Progress Notes Filed: 07/18/2022 6:52 PM Note Text: Episode Visit Count: 1 Therapist That Will Accept/Oversee The Plan Of Care: Ángel Willard Start of Care Date: 07/18/22 Onset Date: 07/18/21 Plan of Care Certification Date: 07/18/22 Next Certification Due Date: 09/16/22 Patient Identified by Name and Date of : Yes REHABILITATION AND SPORTS THERAPY PHYSICAL THERAPY EVALUATION PLAN OF CARE: Assessment: Kaylene Haynes presents with diagnosis of Parkinsons disease and gait abnormality that interferes with walking, physical activities, recreational activities . She presents with impairments in balance, flexibility, gait, independence in exercise, overall function, and strength. Prognosis for therapy is Good due to: current objective clinical presentation, good overall health status, within-session changes, good support system/ coping skills (good motivation) . She will benefit from skilled therapy services to meet the goals established for this plan of care as noted below. Goals for Episode of Care: created on 07/18/22 through 09/16/22 [place] in home exercise program. Patient will demonstrate increase in LE strength to 5/5 during manual muscle testing in order to improve function for basic self-care tasks, home management tasks, light functional tasks, and prior functional tasks. Patient will increase flexibility of B LEs to WNL to improve ability to maintain proper posture, improve mechanics, and gait. Patient will Improve Timed Up and Go to 12 seconds to demonstrate decreased risk of falling. Patient will improve 5 time sit to stand to demonstrate improvement in functional lower extremity strength. Normal gait. Patient will increase balance to Good/Normal with dynamic standing balance and allow patient to demonstrate appropriate balance strategies to reduce risk for falls. Patient will report no falls. Patient Goals: better balance Planned Interventions, Frequency, and Duration: Current Frequency: 1x/week Duration: 8 weeks Total Number of Visits Planned: 8 Planned Treatment Interventions: Therapeutic exercise (06423), Neuromuscular re-education (58141), Therapeutic activities (40103), Patient/Family/Caregiver Education, Gait Training (89020) PLAN FOR NEXT VISIT: pt would like to transfer to a clinic closer to home if possible. otherwise address hip strength/flexibility, balance AND gait if pt returns here (PT will assist pt with transfer) Patient demonstrates good understanding of plan of care and treatment. The above goals and plan of care were discussed and agreed upon by patient/family. SUBJECTIVE: Kaylene Haynes is a 87 year old female seen today for PT eval for balance AND gait issues. pt reports 3 falls over the past year, no injuries. diagnosed with Parkinsons ~ 10 years ago - takes meds which neurologist just increased. pt reports previous tremors prior to starting meds. she exercises frequently, remains active AND independent Patient Goals: better balance Functional Limitations: walking, physical activities, recreational activities Prior Level of Function: Independent without limitations Relevant History Past Relevant Medical Conditions: Arthritis, Parkinson's Disease Right or Left Handed: Left Employment: Retired Recreation / Current Exercise: exercises at [employer] in [place] 3 days/week AND goes to Parkinsons group exercise class 2 days/week [facility] [place] Home Environment Patient Lives With: Self/Alone Home Type: [place] Entry To Home: Stairs Number Of Stairs Into Home: 1 Intake Information: Prescription present Previous Treatment: Self prescribed exercises Medications: Independent with managing medication History of Deep Brain Stimulator (DBS) Implant: No Pain: Pain Pain Level: 0 PROMIS Scales Higher is Better 06/02/2019 09/19/2021 GH Physical - Score Incomplete 50.8 (Very Good) GH Physical - Percentile - 53 % GH Mental - Score 53.3 53.3 (Very Good) GH Mental - Percentile 63 % 63 % T-scores: mean of general population = 50. 5 points is clinically meaningfully difference Percentiles provide an indication of how the patient's score ranks in relation to the general population. Higher percentile rankings indicate better function/quality of life. 50th percentile is the average of the general population and indicates half of respondents had a worse score. T-scores: mean of general population = 50. 5 points is clinically meaningfully difference Percentiles provide an indication of how the patient's score ranks in relation to the general population. Higher percentile rankings indicate better function/quality of life. 50th percentile is the average of the general population and indicates half of respondents had a worse score. OBJECTIVE MEASURES WITH LEVEL OF FUNCTION: Posture / Alignment Posture: Forw (more content not included)... [facility] 07-18-2022 History of Present illness Narrative Episode Visit Count: 1 Therapist That Will Accept/Oversee The Plan Of Care: Ángel Willard Start of Care Date: 07/18/22 Onset Date: 07/18/21 Plan of Care Certification Date: 07/18/22 Next Certification Due Date: 09/16/22 Patient Identified by Name and Date of : Yes REHABILITATION AND SPORTS THERAPY PHYSICAL THERAPY EVALUATION PLAN OF CARE: Assessment: Kayelne Haynes presents with diagnosis of Parkinsons disease and gait abnormality that interferes with walking, physical activities, recreational activities . She presents with impairments in balance, flexibility, gait, independence in exercise, overall function, and strength. Prognosis for therapy is Good due to: current objective clinical presentation, good overall health status, within-session changes, good support system/ coping skills (good motivation) . She will benefit from skilled therapy services to meet the goals established for this plan of care as noted below. Goals for Episode of Care: created on 07/18/22 through 09/16/22 [place] in home exercise program. Patient will demonstrate increase in LE strength to 5/5 during manual muscle testing in order to improve function for basic self-care tasks, home management tasks, light functional tasks, and prior functional tasks. Patient will increase flexibility of B LEs to WNL to improve ability to maintain proper posture, improve mechanics, and gait. Patient will Improve Timed Up and Go to 12 seconds to demonstrate decreased risk of falling. Patient will improve 5 time sit to stand to demonstrate improvement in functional lower extremity strength. Normal gait. Patient will increase balance to Good/Normal with dynamic standing balance and allow patient to demonstrate appropriate balance strategies to reduce risk for falls. Patient will report no falls. Patient Goals: better balance Planned Interventions, Frequency, and Duration: Current Frequency: 1x/week Duration: 8 weeks Total Number of Visits Planned: 8 Planned Treatment Interventions: Therapeutic exercise (31553), Neuromuscular re-education (85477), Therapeutic activities (81602), Patient/Family/Caregiver Education, Gait Training (31322) PLAN FOR NEXT VISIT: pt would like to transfer to a clinic closer to home if possible. otherwise address hip strength/flexibility, balance & gait if pt returns here (PT will assist pt with transfer) Patient demonstrates good understanding of plan of care and treatment. The above goals and plan of care were discussed and agreed upon by patient/family. SUBJECTIVE: Kaylene Haynes is a 87 year old female seen today for PT eval for balance & gait issues. pt reports 3 falls over the past year, no injuries. diagnosed with Parkinsons ~ 10 years ago - takes meds which neurologist just increased. pt reports previous tremors prior to starting meds. she exercises frequently, remains active & independent Patient Goals: better balance Functional Limitations: walking, physical activities, recreational activities Prior Level of Function: Independent without limitations Relevant History Past Relevant Medical Conditions: Arthritis, Parkinson's Disease Right or Left Handed: Left Employment: Retired Recreation / Current Exercise: exercises at [facility] 3 days/week & goes to Parkinsons group exercise class 2 days/week at [facility] Home Environment Patient Lives With: Self/Alone Home Type: [place] Entry To Home: Stairs Number Of Stairs Into Home: 1 Intake Information: Prescription present Previous Treatment: Self prescribed exercises Medications: Independent with managing medication History of Deep Brain Stimulator (DBS) Implant: No Pain: Pain Pain Level: 0 PROMIS Scales Higher is Better 06/02/2019 09/19/2021 GH Physical - Score Incomplete 50.8 (Very Good) GH Physical - Percentile - 53 % GH Mental - Score 53.3 53.3 (Very Good) GH Mental - Percentile 63 % 63 % T-scores: mean of general population = 50. 5 points is clinically meaningfully difference Percentiles provide an indication of how the patient's score ranks in relation to the general population. Higher percentile rankings indicate better function/quality of life. 50th percentile is the average of the general population and indicates half of respondents had a worse score. T-scores: mean of general population = 50. 5 points is clinically meaningfully difference Percentiles provide an indication of how the patient's score ranks in relation to the general population. Higher percentile rankings indicate better function/quality of life. 50th percentile is the average of the general population and indicates half of respondents had a worse score. OBJECTIVE MEASURES WITH LEVEL OF FUNCTION: Posture / Alignment Posture: Forward head, Rounded shoulders UE AROM R UE AROM: wnl L UE AROM: wnl UE and Cervical Strength R UE Strength: grossly 4+ to 5/5 L UE Strength: grossly 4+ to 5/5 LE Strength R LE Strength: hip/glut weakness as noted below otherwise 4+ to 5/5 L LE Strength: hip weakness as noted below otherwise 4+ to 5/5 R Hip Extension: 3-/5 (limited by weakness & hip flexor tightness) R Hip Flexion (L2): 5/5 R Hip ABduction: 3/5 R Knee Extension (L3): 5/5 R Knee Flexion: 5/5 R Ankle Dorsiflexion (L4): 5/5 R Ankle Plantar Flexion: 5/5 L Hip Extension: 3-/5 (limited by weakness & hip flexor tightness) L Hip Flexion (L2): 5/5 L Hip ABduction: 3/5 L Knee Extension (L3): 5/5 L Knee Flexion: 5/5 L Ankle Dorsiflexion (L4): 5/5 L Ankle Plantar Flexion: 5/5 Movement Description Movement Impairment(s): Difficulty initiating gait, Motor Planning Deficits, Bradykinetic Gait Gait: Independent Gait Device: None Gait Deviations: General Deviations General Deviations/Observations: Arm swing decreased, Antalgic gait, Stephanie decreased, Step length decreased Balance Static Standing Balance: Narrow Base of Support, Tandem Stance, Single Leg Stance Narrow Base of Support: Good Tandem Stance: 15-20 seconds (increased difficulty with L foot f/w) Single Leg Stance: 5-10 seconds (with knee flexion/compensation) Functional Performance Test Results Assistive Device: None 5 Times Sit to Stand Test : 17 sec (from 17 chair without UE assist) Timed Up and Go (sec): 14 sec Education: Education Learning/educational needs: Safety, Home exercise program, Plan of Care, Posture, Gait Training Education Provided: Yes, see treatment interventions for education provided Education Provided To: Patient Education Mode/Type: Demonstration, Explanation/Discussion, Performance Response to Education/Teach Back: States/Identifies, Return Demonstration, Requires Review/Additional Education TREATMENT: PT Treatment Interventions: Therapeutic Exercise, Gait Training Evaluation Therapeutic Exercise: 1: s/l hip flexor stretch L/R 2: *hip flexor stretch supine EOB L/R 3: *s/l hip ABd 10xL/R, with 2# L/R, with orange TB L/R (gave pt TB for home use) 4: *prone hip ext/SLR R/L 5: *bridging Skilled Intervention: Patient was educated in proper exercise technique and purpose for exercises. Reviewed and educated patient on additions/changes for home exercise program as above (*). Skilled judgment was provided in selection of appropriate interventions. Provided written instruction for home exercise program to facilitate proper performance and compliance. Educated patient on rationale for performing exercises in regards to including balance, increase ease of ADL, and ROM and function . Patient education as noted. Gait Trainin: gait with VCs for foot clearance & step length (discussed hip stretching/strengthening to improve gait) Skilled Intervention: Patient was provided supervision, independence during pre-gait/gait training to prevent falls and insure safety. Facilitated proper gait cycle with the use of verbal and visual cues for correction of gait deviations identified in the objective section above. Billing * Evaluation Low Complexity: 1 Unit Therapeutic Exercise Treatment Minutes: 20 Gait Training Treatment Minutes: 5 Total Treatment Time Minutes (timed/untimed): 50 Noris Willard PT documented in this encounter [facility] 07-07-2022 Miscellaneous Notes Pt returned the call - RN's not available. She reports that it has happened both awake and asleep, and she said it can be pretty hard at times. She said typically it will be a couple of times per week. She's hoping for return call to discuss further recommendation. I did not relay message regarding the full body jerks . Message left for Kaylene to contact office to discuss symptom of biting tongue As far as whole body jerks are concerned it is benign and I am not worried about that. As far as biting the tongue is concerned I would like to find out how often? Awake or sleep? How frequently? How severe is the tongue bite? Please, let me know. This note was created using dictation software. Please, excuse typographical errors. NI PHONE NAME OF CALLER: Kaylene RELATIONSHIP TO PATIENT: self PATIENT ID'D BY NAME/: REASON FOR CALL: states that she forgot to ask a couple of things at yesterday's appt with II. She has had 2 episodes over the last 6 months, where when she lays down, she has a full body jerk. Is that something to be concerned about? Also, she has been biting her tongue and wants to know how best to manage this. CALLBACK #: [phone] OK TO LEAVE MESSAGE: yes LAST FUV: yesterday with II documented in this encounter [facility] 07-06-2022 Miscellaneous Notes Clarification of C/L 25-100 mg dose was given to pharmacist per Dr. Ocasio's OV notes. 2 tablets by mouth TID at 8a, 1p & 6p. [facility] pharmacy called asking for clarification of directions for Sinemet sent yesterday. Si tablet 3 times a day [phone] documented in this encounter [facility] 07-05-2022 Note HNO ID: [id number] Author: Sridevi Ocasio MD Service: ? Author Type: Physician Type: Progress Notes Filed: 07/05/2022 8:00 PM Note Text: [facility] - FOLLOW UP EVALUATION Chris Kothari MD [id number] [address] I had the pleasure of seeing Ms. Haynes for follow up today. She is a 87 year old left-handed female with a history of IPD since 2011. She is seen alone. Subjective HPI: Since her prior visit, she had multiple of falls. In one of the falls, she had to recieve 12 stitches on her knees. She drinks a lot of water, which causes her to get up at night to use the bathroom. Other than that, she has no trouble sleeping. She has no problems with her memory. She has visual hallucinations about once a week. She is not concerned about her hallucinations. She stopped taking mirtazapine before bedtime because her family doctor stopped the medicine. She occasionally talks in her sleep. She takes 1.5 tablets of carbidopa-levodopa at 8 am, 1 pm, and 6 pm. Her tremors start right before taking the next dose of the medicine. She exercises about four times a week. She goes to a balance and strengthening class. Previous Plan-09/19/2021 Visit: Increase Sinemet 25/100 to 1.5 tablets 3 times a day Physical therapy Follow-up in 6 months Interested in clinical research? Not currently Interval History: Since her prior visit, she had multiple of falls. In one of the falls, she had to recieve 12 stitches on her knees. She drinks a lot of water, which causes her to get up at night to use the bathroom. Other than that, she has no trouble sleeping. She has no problems with her memory. She has visual hallucinations about once a week. She is not concerned about her hallucinations. She stopped taking mirtazapine before bedtime because her family doctor stopped the medicine. She occasionally talks in her sleep. She takes 1.5 tablets of carbidopa-levodopa at 8 am, 1 pm, and 6 pm. Her tremors start right before taking the next dose of the medicine. She exercises about four times a week. She goes to a balance and strengthening class. Parkinson's Medication Schedule - as of the start of the visit: Medications Questionnaires ALLERGIES Allergen Reactions Environmental [Othe* Patient has seasonal allergies Penicillins Rash Tramadol GI Upset Current Outpatient Medications Medication Sig psyllium husk (METAMUCIL ORAL) Take 1 teaspoonful by mouth once daily as needed. metoprolol tartrate, short acting, (LOPRESSOR) 12.5 mg tab Take 12.5 mg by mouth twice daily. MULTIVITAMIN ORAL Take by mouth once daily. Ascorbic Acid 1,000 mg tablet With Zahida hips daily carbidopa-levodopa (SINEMET) 25-100 mg per tablet 12 tablet 3 times a day No current facility-administered medications for this visit. Objective Vital Signs: BP 138/68 (BP Site: Left Arm, BP Position: Sitting, BP Cuff Size: Regular Adult) Pulse 73 Ht 156.8 cm (5' 1.73 ) Wt 46.3 kg (102 lb) SpO2 95% BMI 18.82 kg/m? Orthostatic Vitals: None for this encounter Weight: 46.3 kg (102 lb) Height: 156.8 cm (5' 1.73 ) No LMP recorded. Patient is postmenopausal. Body mass index is 18.82 kg/m?. General Physical Examination: General Exam General Neurological Examination: Neurological Exam Movement Disorders Scales Performed: Assessment and Plan: Assessment Ms. Haynes is a left-handed 87 year old year old female with IPD since 2011. The patient's symptoms are getting worse; she admits end of dose wearing off. We agreed to increase carbidopa/levodopa 25/100 to 2 tablets 3 times a day at 8 AM, 1 PM and 6 PM. We agreed to revisit IPD-centric physical therapy in the community. The patient is sleeping reasonably well; I agree with discontinuing mirtazapine. Follow-up in 6 months. Next visit I might explore the patient's cognition in more detail (MOCA). 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 Not currently Updated Parkinson's Medication Schedule: Medications Return at or around: 01/02/23 Level of service : 67206 (40-54 min). Time spent 45 min on the day of service, which included preparing to see the patient, [id number] patient care, completing clinical documentation, obtaining and/or reviewing separately obtained history, counseling and educating the patient/family/caregiver, ordering medications, tests, or procedures, and care coordination (not separately reported). Thank you for allowing me to be part of the clinical care of this patient! I look forward to continued participation in the patient?s care wit (more content not included)... [facility] 07-05-2022 Instructions Sridevi Ocasio MD - 07/05/2022 4:30 PM EST Please, increase carbidopa/levodopa 25/100 to 2 tablets at 8 AM, 1 PM and 6 PM Please, physical therapy reassessment Please, follow-up in 6 months documented in this encounter [facility] 07-05-2022 History of Present illness Narrative [facility] - FOLLOW UP EVALUATION Chris Kothari MD [id number] [facility] [address] [facility] [address] I had the pleasure of seeing Ms. Haynes for follow up today. She is a 87 year old left-handed female with a history of IPD since 2011. She is seen alone. Subjective HPI: Since her prior visit, she had multiple of falls. In one of the falls, she had to recieve 12 stitches on her knees. She drinks a lot of water, which causes her to get up at night to use the bathroom. Other than that, she has no trouble sleeping. She has no problems with her memory. She has visual hallucinations about once a week. She is not concerned about her hallucinations. She stopped taking mirtazapine before bedtime because her family doctor stopped the medicine. She occasionally talks in her sleep. She takes 1.5 tablets of carbidopa-levodopa at 8 am, 1 pm, and 6 pm. Her tremors start right before taking the next dose of the medicine. She exercises about four times a week. She goes to a balance and strengthening class. Previous Plan-09/19/2021 Visit: Increase Sinemet 25/100 to 1.5 tablets 3 times a day Physical therapy Follow-up in 6 months Interested in clinical research? Not currently Interval History: Since her prior visit, she had multiple of falls. In one of the falls, she had to recieve 12 stitches on her knees. She drinks a lot of water, which causes her to get up at night to use the bathroom. Other than that, she has no trouble sleeping. She has no problems with her memory. She has visual hallucinations about once a week. She is not concerned about her hallucinations. She stopped taking mirtazapine before bedtime because her family doctor stopped the medicine. She occasionally talks in her sleep. She takes 1.5 tablets of carbidopa-levodopa at 8 am, 1 pm, and 6 pm. Her tremors start right before taking the next dose of the medicine. She exercises about four times a week. She goes to a balance and strengthening class. Parkinson's Medication Schedule - as of the start of the visit: Medications Questionnaires ALLERGIES Allergen Reactions Environmental [Othe* Patient has seasonal allergies Penicillins Rash Tramadol GI Upset Current Outpatient Medications Medication Sig psyllium husk (METAMUCIL ORAL) Take 1 teaspoonful by mouth once daily as needed. metoprolol tartrate, short acting, (LOPRESSOR) 12.5 mg tab Take 12.5 mg by mouth twice daily. MULTIVITAMIN ORAL Take by mouth once daily. Ascorbic Acid 1,000 mg tablet With Zahida hips daily carbidopa-levodopa (SINEMET) 25-100 mg per tablet 12 tablet 3 times a day No current facility-administered medications for this visit. Objective Vital Signs: BP 138/68 (BP Site: Left Arm, BP Position: Sitting, BP Cuff Size: Regular Adult) Pulse 73 Ht 156.8 cm (5' 1.73 ) Wt 46.3 kg (102 lb) SpO2 95% BMI 18.82 kg/m Orthostatic Vitals: None for this encounter Weight: 46.3 kg (102 lb) Height: 156.8 cm (5' 1.73 ) No LMP recorded. Patient is postmenopausal. Body mass index is 18.82 kg/m . General Physical Examination: General Exam General Neurological Examination: Neurological Exam Movement Disorders Scales Performed: Assessment and Plan: Assessment Ms. Haynes is a left-handed 87 year old year old female with IPD since 2011. The patient's symptoms are getting worse; she admits end of dose wearing off. We agreed to increase carbidopa/levodopa 25/100 to 2 tablets 3 times a day at 8 AM, 1 PM and 6 PM. We agreed to revisit IPD-centric physical therapy in the community. The patient is sleeping reasonably well; I agree with discontinuing mirtazapine. Follow-up in 6 months. Next visit I might explore the patient's cognition in more detail (MOCA). 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 Not currently Updated Parkinson's Medication Schedule: Medications Return at or around: 01/02/23 Level of service : 36686 (40-54 min). Time spent 45 min on the day of service, which included preparing to see the patient, [id number] patient care, completing clinical documentation, obtaining and/or reviewing separately obtained history, counseling and educating the patient/family/caregiver, ordering medications, tests, or procedures, and care coordination (not separately reported). Thank you for allowing me to be part of the clinical care of this patient! I look forward to continued participation in the patient s care with you. Please do not hesitate to call with any questions. Sincerely, Sridevi Ocasio MD I, Jasmyn Stone, attest that this document has been prepared under the direction and in the presence of Sridevi Ocasio MD on July 05, 2022 at 4:24 PM documented in this encounter [facility] 06-30-2022 Note HNO ID: [id number] Author: RT Rachel(Sangeetha) Service: ? Author Type: Technologist Type: Progress Notes Filed: 06/30/2022 1:25 PM Note Text: Radiology Service Progress Note PATIENT NAME: Kaylene Haynes DATE OF SERVICE: June 30, 2022 TIME: 1:25 PM PATIENT IDENTITY VERIFICATION COMPLETED USING TWO (2) IDENTIFIERS: Name and Date of confirmed by patient verbally. FALL SCREENING: Has the patient had 2 falls in the last year or 1 fall with injury or currently using an Ambulatory Assistive Device (Walker, Cane, Wheelchair, Crutches, etc.)? No PATIENT GENDER DATA: Female. status: : No status: NO. PATIENT RELEVANT IMPLANT DATA REVIEWED: Not Applicable RADIOLOGY DEPARTMENT: Mammography PERIPHERAL IV DATA: Not applicable SIGNED BY: RT Rachel(R) June 30, 2022 1:25 PM [facility] 06-30-2022 History of Present illness Narrative Radiology Service Progress Note PATIENT NAME: Kaylene Haynes DATE OF SERVICE: June 30, 2022 TIME: 1:25 PM PATIENT IDENTITY VERIFICATION COMPLETED USING TWO (2) IDENTIFIERS: Name and Date of confirmed by patient verbally. FALL SCREENING: Has the patient had 2 falls in the last year or 1 fall with injury or currently using an Ambulatory Assistive Device (Walker, Cane, Wheelchair, Crutches, etc.)? No PATIENT GENDER DATA: Female. status: : No status: NO. PATIENT RELEVANT IMPLANT DATA REVIEWED: Not Applicable RADIOLOGY DEPARTMENT: Mammography PERIPHERAL IV DATA: Not applicable SIGNED BY: RT Rachel(Sangeetha) June 30, 2022 1:25 PM documented in this encounter [facility] 04-04-2022 Miscellaneous Notes Order pending. Myrna Lees RN Patient is scheduled for mammogram screening on 06/30/2022. Requesting updated order, current order expires 05/02/2022. Thank you. documented in this encounter [facility] 03-08-2022 Miscellaneous Notes Patient called, went over notes from Dr. Brooks with her in regards to her CT results. Patient will reach out to Dr. Kothari. Left message to return call to clinical. Faxed note and CT result to Dr Kothari. .me Can let her know that the CT scan of the abdomen pelvis showed a few mildly enlarged lymph nodes that were stable when compared to her last CT scan in 2012. 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 No treatment indicated. In the lower right lung there were some changes that could be associated with either chronic infection or recent infection. I would encourage her to follow-up with her PCP on these findings. We can fax a copy of the CT scan to Dr. Kothari. She may need a full CT of the chest to fully evaluate and also may ultimately benefit from a pulmonary referral but I will leave that to Dr. Kothari to decide. Bart Brooks DO documented in this encounter [facility] 02-14-2022 Miscellaneous Notes Spoke with pt. Informed she can have CT of abd/pelvis with oral but without IV contrast. Pt. Agreed , prefers to be scheduled any Sunday afternoon, Sunday afternoon, or anytime on a Sunday. PSS please schedule and contact pt. Karen Saenz LPN Can let her know that her blood counts are stable. Final results of today's testing indicate she can have a CT scan of the abdomen pelvis with oral but without IV contrast to further assess the hernia. Please schedule this. Bart Brooks DO documented in this encounter [facility] 02-14-2022 History of Present illness Narrative Diagnosis: 1) Lymphoproliferative disorder. HPI: The patient is a 86 yo female whom I saw in consultation at [facility] in 2006 for pancytopenia following an admission for sepsis. Bone marrow biopsy demonstrated a normocellular bone marrow with no evidence of myelodysplasia, lymphoma or leukemia. Flow cytometry showed no evidence of lymphoma or leukemia. The patient had an MRCP in December of 2006. That study showed mild prominence of the common bile duct with cholelithiasis and a contracted gallbladder. The spleen was noted to be unremarkable. She had an unremarkable CBC following her hospital discharge and 2006. She presented to the emergency department on 07/11/2011 with complaints of abdominal pain. She had woke up that morning with pain. It was associated with mild nausea. No vomiting, fever or chills. There was no diarrhea. The pain was located mainly in the left midabdomen. CT scan of the abdomen and pelvis in the ED revealed a mild degree of intrahepatic biliary ductal dilation with a common bile duct measuring 1.3 cm. There was moderate splenomegaly. Significantly, there was evidence of a linear low-density abnormality to the body the spleen suggestive of a splenic fracture. There was a tiny perisplenic fluid collection. There was retroperitoneal lymphadenopathy with nodes measuring greater than 10-15 mm in short axis. 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 The pathology review demonstrated tissue consistent with extramedullary hematopoiesis and focal intraparenchymal hemorrhage. There was no definite evidence of malignancy. PET done at [facility] 07/31/11: The PET scan revealed increased glucose metabolism in the lower abdominal/right upper pelvic retroperitoneum, periaortic in location demonstrating an SUV of 3.5. The largest corresponding hypermetabolic soft tissue abnormality was measured and axial diameter of 1.9 cm. There was also increased glucose concentration in the right posterior pelvic mesentery distinctly nodular presentation demonstrating a maximum SUV of 6.4. The uptake appear to be contiguous to the visualized intestinal tract. There was no other significant hypermetabolic abnormality. Work up included bone marrow biopsy that revealed-- BONE MARROW, ASPIRATE SMEAR AND CORE BIOPSY, WITH CLOT SECTION AND PERIPHERAL SMEAR (A-C): -INCREASED CIRCULATING LARGE GRANULAR LYMPHOCYTES, WORRISOME FOR LARGE GRANULAR LYMPHOCYTE LEUKEMIA, PCR STUDIES PENDING. -ATYPICAL B-CELL RICH LYMPHOID AGGREGATES, PCR STUDIES PENDING. -HYPERCELLULAR MARROW (40%) WITH TRILINEAGE HEMATOPOIESIS AND ADEQUATE MEGAKARYOCYTES. -IRON STORES PRESENT. -SEE COMMENT. Comment: PCR studies showed a polyclonal T-cell population. In light of this result, the increased large granular lymphocytes noted in the peripheral blood may represent a reactive finding. In contrast, PCR studies showed the presence of a monoclonal B-cell population. 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 Further classification of this process requires correlation with the clinical findings. If there is adenopathy, lymph node biopsy may be helpful in further classification of this small B-cell lymphoproliferative disorder. In the absence of adenopathy, these findings may represent a monoclonal B-cell lymphocytosis ( non-CLL phenotype). Received [address] 12/2011 showed mild/borderline adenopathy. Presents for follow up. Interim history: She continues to participate in Silver Sneakers 3 times a week and Delay the Disease (Parkinson's specific exercises) 2 days a week. She lives independently and is capable of her ADLs and IADLs. Since last seen, she is had no acute illnesses. She is completing her COVID booster series. Her appetite is normal. She has had no abdominal pain. In the last few weeks, she has noticed a small little knot in her upper abdomen below the xiphoid process. Tender if she pushes on it but otherwise no pain. No unusual bleeding or unexplained bruising. PMH, medications and allergies as below personally reviewed by me today. Any changes documented in appropriate section. ROS: Constitutional: See above. Neuro: Denies symptoms of neuropathy. HEENT: No recent change in voice, vision or hearing. Resp: Denies hemoptysis. Denies shortness of breath at rest. Denies CHRISTIE. CVS: Denies exertional chest pain, PND, orthopnea and LE edema. GI: Denies dysgeusia. Denies symptoms of stomatitis. Denies dysphagia and odynophagia. Denies reflux. : Denies dysuria or gross hematuria. No symptoms of bladder outlet obstruction. Endo: Denies hot flashes. Denies polyuria and polydipsia. Denies heat and cold intolerance. Musculoskeletal: Denies bone, back, joint and muscular pain. Derm: Denies rash. Denies jaundice and diffuse pruritis. Heme: See above. Psych: Normal mood. PHYSICAL EXAM: Vitals: Blood pressure 147/90, pulse 67, temperature 36.1 C (97 F), temperature source Temporal, height 156.8 cm (5' 1.75 ), weight 46.3 kg (102 lb). Frail-appearing and in no acute distress. EYES: Sclerae are anicteric bilaterally. LYMPHATIC: There is no palpable cervical, supraclavicular, axillary or inguinal adenopathy. RESPIRATORY: Inspiratory breath sounds are of normal intensity in all cary. CARDIOVASCULAR: Rhythm is irregular. ABDOMEN: The abdomen is nondistended. There is a small reducible hernia in the upper midline of the abdomen. Extremities: Free of edema. SKIN: No jaundice or rash. No petechiae. 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 No focal motor weakness. LABS: Component Latest Ref Rng & Units 04/15/2018 10/14/2018 04/15/2019 07/15/2019 01/19/2020 07/21/2020 01/18/2021 08/16/2021 02/14/2022 WBC 3.70 - 11.00 k/uL 12.47 (H) 16.11 (H) 15.43 (H) 13.75 (H) 14.27 (H) 14.47 (H) RBC 3.90 - 5.20 m/uL 4.46 4.21 4.49 4.25 4.30 4.19 Hemoglobin 11.5 - 15.5 g/dL 13.3 12.6 13.5 13.2 13.3 12.9 Hematocrit 36.0 - 46.0 % 41.4 38.6 41.7 39.5 40.0 39.1 MCV 80.0 - 100.0 fL 92.8 91.7 92.9 92.9 93.0 93.3 MCH 26.0 - 34.0 pg 29.8 29.9 30.1 31.1 30.9 30.8 MCHC 30.5 - 36.0 g/dL 32.1 32.6 32.4 33.4 33.3 33.0 RDW-CV 11.5 - 15.0 % 14.2 13.6 14.0 14.1 13.5 13.7 Platelet Count 150 - 400 k/uL 273 335 322 322 324 337 MPV 9.0 - 12.7 fL 10.0 9.3 9.1 9.1 9.6 9.3 Neut% % 39 37.0 33.0 42.0 43.0 Abs Neut (ANC) 1.45 - 7.50 k/uL 4.86 5.96 5.09 5.78 5.14 Lymph% % 48 51.0 56.0 44.0 44.0 Abs Lymph 1.00 - 4.00 k/uL 8.22 (H) 8.64 (H) 6.05 (H) 6.84 (H) [place]% % 6 6.0 7.0 11.0 9.0 Abs [place] <0.87 k/uL 0.75 0.97 (H) 1.08 (H) 1.51 (H) 1.38 (H) Eosin% % 6 4.0 2.0 3.0 3.0 Abs Eosin <0.46 k/uL 0.75 (H) 0.64 (H) 0.31 0.41 0.44 Baso% % 1 2.0 2.0 0.0 1.0 Abs Baso <0.11 k/uL 0.12 (H) 0.32 (H) 0.31 (H) 0.00 0.43 (H) ANC(includeSEG+BAND) k/uL 5.96 5.09 5.78 Acanthocyte Few Few Few Few Love [place] Bodies Occasional Ovalocytes Few Few Few Few Few Target Cells Few Few Few Few Platelet Estimate Platelet estimate adequate Platelet estimate adequate Platelet estimate adequate Platelet estimate adequate Adequate Diff Type Manual Diff Manual Diff Manual Diff Tear Drop Few Abs Lym 1.00 - 4.00 K/uL 5.99 (H) Anisocytosis Present RBC Fragments None Seen Few (A) WBC, [place] 3.70 - 11.00 k/uL 13.90 (H) 11.69 (H) 14.70 (H) RBC, [place] 3.90 - 5.20 m/uL 4.07 4.20 4.11 Hemoglobin, [place] 11.5 - 15.5 g/dL 12.3 12.7 12.5 Hematocrit, [place] 36.0 - 46.0 % 38.2 38.0 37.6 MCV, [place] 80.0 - 100.0 fL 93.9 90.5 91.5 MCH, [place] 26.0 - 34.0 pg 30.2 30.2 30.4 MCHC, [place] 30.5 - 36.0 g/dL 32.2 33.4 33.2 RDW, [place] 11.5 - 15.0 % 13.5 14.2 14.7 Platelet Cnt, [place] 150 - 400 k/uL 297 293 317 MPV, [place] 9.0 - 12.7 fL 10.7 10.5 9.6 Neut%, [place] % 50 41.4 48 Lymp%, [place] % 40 41.7 37 [place]%, [place]ra % 5 14.0 12 Eos%, [place] % 2 1.8 1 Baso%, [place] % 3 1.1 2 Abs Neut, [place] 1.45 - 7.50 k/uL 6.95 4.83 7.06 Abs Lymp, [place] 1.00 - 4.00 k/uL 5.56 (H) 4.88 (H) 5.44 (H) Abs [place], [place] <0.87 k/uL 0.70 1.64 (H) 1.76 (H) Abs Eos, [place] <0.46 k/uL 0.28 0.21 0.15 Abs Baso, [place] <0.11 k/uL 0.42 (H) 0.13 (H) 0.29 (H) RBC Morph, [place] Few 1+ Platelet Est, [place] Platelet estimate adequate Platelet estimate adequate ASSESSMENT/PLAN: 1) 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 Assessment: -Minimal RP and pelvic mesenteric lymphadenopathy that was asymptomatic. -Previous splenic fracture secondary to extramedullary hematopoiesis. -Received an 8-week course of rituximab 10 years ago. -No concerning symptoms or exam findings. -No clear indication for reimaging of the abdomen in the absence of symptoms. -Reviewed labs with her. No indication right now for therapy. -Reviewed the expected overall natural history and good prognosis. -New midline ventral hernia. Plan: -CT abdomen pelvis with oral but without IV contrast. -OV/CBC/LDH in about 6 months. Portions of this documentation were copied and pasted from previous office visit notes in order to provide a cohesive continuity of the history. The note has been reviewed and edited and updated as necessary. During this patient visit I have spent approximately 10 minutes out of 20 in counseling regarding test results and coordinating care. Bart Brooks DO documented in this encounter [facility] 12-05-2021 Miscellaneous Notes Detailed message left on patient's identified VM. Patient to contact office for any questions. Daja Lambert LPN Blood counts are not much different. Hgb and platelets remain normal. Okay to follow up as scheduled. Bart Brooks DO Labs printed and placed in Dr. Brooks's mailbox for review. Daja Lambert LPN Pt stated she had labs done at [facility] 11/21/[address] Kothari. He noted that she had elevated white blook count and may want to be seen sooner by Dr Brooks. Please advise pt. She is scheduled in January to see him. documented in this encounter [facility] 09-19-2021 Instructions Sridevi Ocasio MD - 09/19/2021 3:15 PM EDT Please, increase carbidopa/levodopa 25/100 to 1.5 tablets 3 times a day at 8 AM, 1 PM and 6 PM Please, continue taking mirtazapine 7.5 mg at bedtime Please, think about re-visiting PD-specific physical therapy locally Please, follow-up in six months documented in this encounter [facility] 09-19-2021 History of Present illness Narrative [facility] - FOLLOW UP EVALUATION Chris Kothari MD [address] [facility] [address] [facility] [address] I had the pleasure of seeing Ms. Haynes for follow up today. She is a 86 year old left-handed female with a history of IPD since 2009. She is seen along with son. Subjective She feels that she has more trouble cutting meat. She may have harder time turning around. She may have occasional LBP. She sleeps well with bedtime mirtazapine 7.5 mg PO QHS. The patient may have orthostatic lightheadedness. She takes Sinemet at 8 AM, 1 PM and 6 PM. In addition, the following Parkinson-associated features were evaluated: Daily activities Difficulties with eating: Yes (slight) Difficulties in dressing: Yes (slight) Difficulties with hygiene activities: Yes (slight) Difficulties with handwritin (none) Difficulties with doing hobbies and other activities: Yes (slight) Difficulties turning in bed: Yes (slight) Difficulties getting out of bed, car or chair: Yes (slight) Tremors/Gait/Balance Shaking or tremors: 0 (none) Walking and balance problems: Yes (slight) Number of falls in the Last Month: 0 Gait freezing: Yes (slight) Autonomic/Pain Lightheadeness on standing: Yes (slight) Urinary problems: Yes (slight) Constipation problems: Yes (slight) Pain and other sensations: Yes (slight) Speech/Swallowing Speech problems: Yes (slight) Drooling: Yes (mild) Chewing and swallowing problems: Yes (slight) Sleep/Fatigue Problems sleeping at night: 0 (none) Daytime sleepiness: Yes (slight) Fatigue: Yes (slight) REM sleep behavior disorder: yes Restless Legs Syndrome: no Mood/Behavior/Cognition Cognitive impairment: no No Data Recorded Hallucinations and delusions: no Apathy: no Depression: PQH-9 = 1 usually representing no significant (0-4) depression. Anxiety: JOHNNIE-7 = 0 usually representing no significant (0-4) anxiety. Finally, the following table shows the patient's overall global physical and mental health using the PROMIS scale relative to the previous visit: PROMIS-10 Office Visit from 09/19/2021 in [facility] Visit from 06/02/2019 in [facility] Global Physical Health T Score 50.8 Global Mental Health T Score 53.3 53.3 0-10 Standard Pain Scale 4 5 *PROMIS-10 scoring scale: mean = 50, over 50 is above average, under 50 is below average ALLERGIES Allergen Reactions Environmental [Othe* Patient has seasonal allergies Penicillins Rash Tramadol GI Upset Current Outpatient Medications Medication Sig carbidopa-levodopa (SINEMET) 25-100 mg per tablet Take 1 tablet by mouth three times daily. mirtazapine (REMERON) 15 mg tablet Take 0.5 tablets by mouth daily at bedtime. Take 1/2 tablet by mouth at bedtime. psyllium husk (METAMUCIL ORAL) Take 1 teaspoonful by mouth once daily as needed. metoprolol tartrate, short acting, (LOPRESSOR) 12.5 mg tab Take 12.5 mg by mouth twice daily. MULTIVITAMIN ORAL Take by mouth once daily. Ascorbic Acid (VITAMIN C) 1,000 mg ORAL tablet With Zahida hips daily No current facility-administered medications for this visit. Objective Vital Signs: BP 142/70 (BP Site: Right Arm, BP Position: Sitting, BP Cuff Size: Regular Adult) Pulse 86 Ht 158 cm (5' 2.21 ) Wt 48.5 kg (107 lb) SpO2 97% BMI 19.44 kg/m General Physical Examination: General Exam General Neurological Examination: Neurological Exam Movement Disorders Cognitive and Motor Biomeasures: Processing Speed Test Total Number Correct: ; Z Score: Visual Memory Test Raw Score: ; Z Score: Manual Dexterity Test (max = 180 secs) Left Hand Time: ; Right Hand Time: Walking Speed Test (25 foot walk): *Z score interpretation: higher than -1.5 is within normal; -1.5 to -2.0 represents mild impairment; lower than -2.0 represents significant impairment Movement Disorders Scales Performed: MDS-UPDRS Motor subscale condition of exam Medication Off/On/Naiive on meds Time of UPDRS 3:00 PM Time of Last Medication 1 PM Last Medication Taken Sinemet 25/100 DBS Right none DBS Left none MDS-UPDRS Motor subscale scores Speech 2 Facial Expression 2 Rigidity Neck 3 Rigidity Right Upper Extremity 0 Rigidity Left Upper Extremity 0 Rigidity Right Lower Extremity 1 Rigidity Left Lower Extremity 1 Finger Taps Right 2 Finger Taps Left 1 Hand Movements Right 2 Hand Movements Left 1 Arm Movements Right 1 Arm Movements Left 0 Toe Taps Right 0 Toe Taps Left 0 Leg Agility Right 0 Leg Agility Left 0 Arise From Chair 0 Gait 1 Gait Freezing 0 Posture Stability 0 Posture 2 Body Bradykinesia 2 Postural Tremor Hand Right 1 Postural Tremor Hand Left 0 Kinetic Tremor Right 1 Kinetic Tremor Left 1 Rest Tremor Amplitude Right Upper Extremity 1 Rest Tremor Amplitude Left Upper Extremity 0 Rest Tremor Amplitude Right Lower Extremity 0 Rest Tremor Amplitude Right Lower Extremity 0 Rest Tremor Amplitude Lip/Jaw 0 Rest Tremor Constancy 1 MDS-UPDRS Motor subscale totals Left Total Right Total Midline Total Tremor Total / 10 PIGD Total / 3 Overall Total % Change Compared to Last Filed Total Assessment and Plan: Assessment Ms. Haynes is a left-handed 86 year old female with idiopathic Parkinson's disease since 2009 presenting for follow-up. We agreed to gingerly increase carbidopa/levodopa 25/100 1.5 tablets 3 times a day to better address progressing motor symptoms. The patient will continue take mirtazapine 7.5 mg at bedtime. The patient will think about revisiting Parkinson's disease specific physical therapy locally. Follow-up in 6 months. The following are the current problems noted and addressed during this visit: No diagnosis found. Plan 09/19/2021 Visit: Increase Sinemet 25/100 to 1.5 tablets 3 times a day Physical therapy Follow-up in 6 months Interested in clinical research? Not currently Updated Parkinson's Medication Schedule: Level of service : 95312 (40-54 min). Time spent 45 min on the day of service, which included preparing to see the patient, [id number] patient care, completing clinical documentation, obtaining and/or reviewing separately obtained history, performing a medically appropriate examination, counseling and educating the patient/family/caregiver, ordering medications, tests, or procedures and care coordination (not separately reported). Medical Decision Making Thank you for allowing me to be part of the clinical care of this patient! I look forward to continued participation in the patient s care with you. Please do not hesitate to call with any questions. Sincerely, Sridevi Ocasio MD documented in this encounter [facility] 05-27-2019 History of Present illness Narrative Pt sitting up and tolerating po well PATIENT RECEIVED FROM OR VIA CART. SPONT RESP. WITH EYE CLINIC MANAGER IN ATTENDANCE. PLACED ON MONITOR. MONITOR ALARMS ON IN PACU. RT arm elevated and ice pack applied Timeout performed prior to regional block procedure. Dr Kenyon in attendance. documented in this encounter [facility] Work Phone: Evaluation + Plan note No data available for this section [facility] 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 [facility]* 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 Hernia of abdominal wall Ventral hernia, unspecified, without mention of obstruction or gangrene [facility]* Diagnosis Encounter for screening mammogram for malignant neoplasm of breast- Primary Other screening mammogram [facility]* Diagnosis Parkinson's disease (HCC)- Primary Paralysis agitans Abnormality of gait 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* 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 [facility]* 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 [facility]* Diagnosis Parkinson's disease without dyskinesia or fluctuating manifestations- Primary [facility]* Diagnosis Encounter for screening mammogram for malignant neoplasm of breast Other screening mammogram [facility] Instructions* Brandon Faye MD - 05/27/2019 OK to move fingers and thumb within confined of splint Ice and elevate for pain control OK to take tylenol/ibuprofen for pain relief Keep bandage on until first post operative appointment [facility] Phone: Hospital Discharge instructions No data available for this section [facility] Progress note No data available for this section [facility] Reason for referral (narrative)* Diagnostic Procedure Only (Routine) - Authorized Specialty Diagnoses / Procedures Referred By Contac t Referred To Contact [facility] Diagnoses Encounter for screening mammogram for malignant neoplasm of breast Procedures GLEN SCREENING SCREENING MAMMOGRAPHY BI 2-VIEW BREAST INC CAD Silva Hernandez MD [facility] [place] [address] [facility] [address] [facility] [place] [address] Referral ID Status Reason Start Date Expiration Date Visits Requested Visits Authorized [id number] Authorized Auto-Generat ed Referral 2 05/04/2023 [address] [facility] for referral (narrative)* Diagnostic Procedure Only (Routine) - Closed Specialty Diagnoses / Procedures Referred By Aron ramos Referred To Contact [facility] Diagnoses Encounter for screening mammogram for malignant neoplasm of breast Procedures GLEN SCREENING SCREENING MAMMOGRAPHY BI 2-VIEW BREAST INC Silva Camacho MD [address] [place] [address] [facility] [address] [place] [id number] Referral ID Status Reason Start Date Expiration Date V isits Requested Visits Authorized [id number] Closed Auto-Generate d Referral 04/04/2022 05/04/2023 [address] [facility] for visit Narrative* Diagnostic Procedure Only (Routine) - Closed Specialty Diagnoses / Procedures Referred By Aron ramos Referred To Contact [facility] Diagnoses Encounter for screening mammogram for malignant neoplasm of breast Procedures GLEN SCREENING SCREENING MAMMOGRAPHY BI 2-VIEW BREAST INC Silva Camacho MD [address] [place] [address] [place] [address] Referral ID Status Reason Start Date Expiration Date V isits Requested Visits Authorized [id number] Closed Auto-Generate d Referral 04/04/2022 05/04/2023 1 1 [facility] Discharge Instructions * Instructions* Fariba Ponce RN - 2019 Do NOT take the following medications on the morning of surgery-Vitamins. TAKE the following medications the morning of your surgery-Carbidopa/Levodopa. You may take Miralax. You may take Tylenol (Acetaminophen) if needed for pain. No Motrin, Ibuprofen, or Advil 24 hours prior to surgery, or longer if instructed by your surgeon. No Aleve or Naprosyn 3 days prior to surgery, or longer if instructed by your surgeon. You will receive a reminder call the day before surgery with your Same Day Surgery arrival time. If you have specific questions, please call your surgeon. Please bring your [facility] Surgical Information folder on the day of surgery. Please bring a photo ID and insurance information [facility]: ? Enter through Door number 2 ? Registration department is located here ? Patient will be escorted to [facility] ? [facility] does not open before 6am documented in this encounter History of Present Illness * Tyrel Aguiarnikko Olivo - 2019 1:30 PM EST Labs obtained on first attempt with 22 gauge needle at R ACF site, patient tolerated well, site benign. 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 [employer] Expl anation Advance Directives and Living Will Power of Medical Specialist Latest Code Status on File Code Status Date Activated Date Inactivated Comments Full Code 05/27/2019 6:25 AM Summary Purpose Family History No Family History Records FoundNo Family History Records FoundNo Family History Records FoundNo Family History Records FoundNo Family History Records Found Reason for Referral Specialty Diagnoses / Procedures Referred By Contac t Referred To Contact Diagnoses Parkinson's disease (HCC) Abnormality of 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) Procedures PROVIDER ORDERED FOLLOW UP OFFICE/OUTPATIENT NEW HIGH MDM 60-74 MINUTES Sridevi Ocasio MD [address] [place] [address] Referral ID Status Reason Start Date Expiration Date Visits Requested Visits Authorized [id number] Pending Review PCP Requested Referral 07/05/2022 10/03/2022 1 1 Specialty Diagnoses / Procedures Referred By Contact Referred To Contact [facility] Diagnoses Parkinson's disease (HCC) Abnormality of 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) Procedures CONSULT TO PHYSICAL THERAPY PHYSICAL THERAPY EVALUATION HIGH COMPLEX 45 MINS Sridevi Ocasio MD [address] [place] [address] [facility] [address] [address] Referral ID Status Reason Start Date Expiration Date Visits Requested Visits Authorized [id number] Pending Review Auto-Generat ed Referral 07/05/2022 07/05/2023 1 1 Specialty Diagnoses / Procedures Referred By Contac t Referred To Contact CT IMAGING Diagnoses 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 Procedures CT ABD/PEL WO IVCON CT ABD & PELVIS W/O CONTRAST Bart Brooks, [address] [place] [address] Ct Imaging Referral ID Status Reason Start Date Expiration Date Visits Requested Visits Authorized [id number] Pending Review Auto-Generat ed Referral 02/14/2022 03/16/2023 1 1 Additional Source Comments INFORMATION SOURCE (unrecogn ized section and content) DATE CREATED AUTHOR AUTHOR'S ORGANIZ ATION 06/01/2020 [facility] DATE CREATED AUTHOR AUTHOR'S ORGANIZ ATION 02/16/2023 [facility] DATE CREATED AUTHOR AUTHOR'S ORGANIZ ATION 03/23/2023 [facility] DATE CREATED AUTHOR AUTHOR'S ORGANIZ ATION 05/25/2023 [facility] Source Comments (unrecognize d section and content) In the event this informatio n is protected by the Federal Confidentiality of Alcohol and Drug Abuse Patient Records regulations: The Federal rules restrict any use of the information to criminally investigate or prosecute any alcohol or drug abuse patient.[facility] the event this information is protected by the Federal Confidentiality of Alcohol and Drug Abuse Patient Records regulations: The Federal rules restrict any use of the information to criminally investigate or prosecute any alcohol or drug abuse patient.[facility] the event this information is protected by the Federal Confidentiality of Alcohol and Drug Abuse Patient Records regulations: The Federal rules restrict any use of the information to criminally investigate or prosecute any alcohol or drug abuse patient.[facility] the event this information is protected by the Federal Confidentiality of Alcohol and Drug Abuse Patient Records regulations: The Federal rules restrict any use of the information to criminally investigate or prosecute any alcohol or drug abuse patient.[facility] the event this information is protected by the Federal Confidentiality of Alcohol and Drug Abuse Patient Records regulations: The Federal rules restrict any use of the information to criminally investigate or prosecute any alcohol or drug abuse patient.[facility] the event this information is protected by the Federal Confidentiality of Alcohol and Drug Abuse Patient Records regulations: The Federal rules restrict any use of the information to criminally investigate or prosecute any alcohol or drug abuse patient.[facility] Center[facility] the event this information is protected by the Federal Confidentiality of Alcohol and Drug Abuse Patient Records regulations: The Federal rules restrict any use of the information to criminally investigate or prosecute any alcohol or drug abuse patient.[facility] Center[facility] the event this information is protected by the Federal Confidentiality of Alcohol and Drug Abuse Patient Records regulations: The Federal rules restrict any use of the information to criminally investigate or prosecute any alcohol or drug abuse patient.[facility] the event this information is protected by the Federal Confidentiality of Alcohol and Drug Abuse Patient Records regulations: The Federal rules restrict any use of the information to criminally investigate or prosecute any alcohol or drug abuse patient.[facility] Center[facility] the event this information is protected by the Federal Confidentiality of Alcohol and Drug Abuse Patient Records regulations: The Federal rules restrict any use of the information to criminally investigate or prosecute any alcohol or drug abuse patient.[facility] CenterIn the event this information is protected by the Federal Confidentiality of Alcohol and Drug Abuse Patient Records regulations: The Federal rules restrict any use of the information to criminally investigate or prosecute any alcohol or drug abuse patient.[facility] CenterIn the event this information is protected by the Federal Confidentiality of Alcohol and Drug Abuse Patient Records regulations: The Federal rules restrict any use of the information to criminally investigate or prosecute any alcohol or drug abuse patient.[facility] CenterIn the event this information is protected by the Federal Confidentiality of Alcohol and Drug Abuse Patient Records regulations: The Federal rules restrict any use of the information to criminally investigate or prosecute any alcohol or drug abuse patient.[facility] CenterIn the event this information is protected by the Federal Confidentiality of Alcohol and Drug Abuse Patient Records regulations: The Federal rules restrict any use of the information to criminally investigate or prosecute any alcohol or drug abuse patient.[facility] CenterIn the event this information is protected by the Federal Confidentiality of Alcohol and Drug Abuse Patient Records regulations: The Federal rules restrict any use of the information to criminally investigate or prosecute any alcohol or drug abuse patient.[facility] CenterIn the event this information is protected by the Federal Confidentiality of Alcohol and Drug Abuse Patient Records regulations: The Federal rules restrict any use of the information to criminally investigate or prosecute any alcohol or drug abuse patient.[facility] CenterIn the event this information is protected by the Federal Confidentiality of Alcohol and Drug Abuse Patient Records regulations: The Federal rules restrict any use of the information to criminally investigate or prosecute any alcohol or drug abuse patient.[facility] CenterIn the event this information is protected by the Federal Confidentiality of Alcohol and Drug Abuse Patient Records regulations: The Federal rules restrict any use of the information to criminally investigate or prosecute any alcohol or drug abuse patient.[facility] CenterIn the event this information is protected by the Federal Confidentiality of Alcohol and Drug Abuse Patient Records regulations: The Federal rules restrict any use of the information to criminally investigate or prosecute any alcohol or drug abuse patient.[facility] Reason for Visit (unrecogniz ed section and content) Reason Comments Patient Update Reason Comments Established Patient Reason Comments Follow Up CT A/P to evaluate a bdominal hernia Reason Comments Results CT A/P Reason Comments Orders Reason Comments Established Patient Parkinsons disease H CC Other insomnia abnormality of gait Parkinson's Disease Reason Comments Med Change Request Reason Comments Clarify Sinemet Reason Comments Symptom Management Biting tongue Reason Comments PT Eval Specialty Diagnoses / Procedures Referred By Contac t Referred To Contact PHYSICAL THERAPY Diagnoses Parkinson's disease (HCC) Abnormality of 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) Procedures CONSULT TO PHYSICAL THERAPY PHYSICAL THERAPY EVALUATION HIGH COMPLEX 45 MINS Sridevi Ocasio MD [address] [place] [address] Noris Willard, PT [address] [place] [address] Referral ID Status Reason Start Date Expiration Date V isits Requested Visits Authorized [id number] Authorized 07/05/2022 07/05/2023 1 99 Reason Comments Established Patient Reason Comments Patient Request Reason Comments Follow Up Specialty Diagnoses / Procedures Referred By Contac t Referred To Contact Diagnoses Tongue biting Procedures PROVIDER ORDERED FOLLOW UP Selvin Lowe MD [address] [facility] [address] [place] [address] Referral ID Status Reason Start Date Expiration Date V isits Requested Visits Authorized [id number] Closed PCP Requested Referral 10/03/2022 01/01/2023 1 1 Reason Comments Patient Question Care Teams (unrecognized sec tion and content) Ballistics Tester Relationship Specialty Start Date End Date Taye Chris Chi PCP - General Gerontology 11/23/14 Ballistics Tester Relationship Specialty Start Date End Date Taye, Chris Chi PCP - General Gerontology 11/23/14 Ballistics Tester Relationship Specialty Start Date End Date Taye, Chris Chi PCP - General Gerontology 11/23/14 Ballistics Tester Relationship Specialty Start Date End Date Taye, Chris Chi PCP - General Gerontology 11/23/14 Ballistics Tester Relationship Specialty Start Date End Date Taye, Chris Chi PCP - General Gerontology 11/23/14 Ballistics Tester Relationship Specialty Start Date End Date Taye, Chris Chi PCP - General Gerontology 11/23/14 Ballistics Tester Relationship Specialty Start Date End Date Taye, Chris Chi PCP - General Gerontology 11/23/14 Ballistics Tester Relationship Specialty Start Date End Date Taye, Chris Chi PCP - General Gerontology 11/23/14 Ballistics Tester Relationship Specialty Start Date End Date Taye Chris Chi PCP - General Gerontology 11/23/14 Ballistics Tester Relationship Specialty Start Date End Date Taye Chris Chi PCP - General Gerontology 11/23/14 Ballistics Tester Relationship Specialty Start Date End Date Chris Kothari Chi PCP - General Gerontology 11/23/14 FOR RECORDS PERTAINING TO PATIENTS WHO ARE OR HAVE BEEN ENROLLED IN A CHEMICAL DEPENDENCY/SUBSTANCEABUSE PROGRAM, SOME INFORMATION MAY BE OMITTED. This clinical summary was aggregated from multiple sources. Caution should be exercised in using it in the provision of clinical care. This summary normalizes information from multiple sources, and as a consequence, information in this document may materially change the coding, format and clinical context of patient data. In addition, data may be omitted in some cases. CLINICAL DECISIONS SHOULD BE BASED ON THE PRIMARY CLINICAL RECORDS. [facility]. provides no warranty or guarantee of the accuracy or completeness of information in this document.
--- NOTE | 2023-06-28 17:29 | ED.RN ---
patient out of department for MRI, will monitor blood pressure again on return.
--- NOTE | 2023-06-28 19:04 | ECHOD_ITS ---
Reason For Study: TIA/CVA Procedure This was a 2D Doppler, Color Flow transthoracic echocardiogram. The study was technically difficult. Exam performed portable in patient room. Left Ventricle Normal LV size. Left ventricular systolic function is normal. The estimated ejection fraction is 70 %. No regional wall motion abnormalities noted. Right Ventricle Normal RV size. Normal systolic function. Atria Normal left atrium. Normal right atrium. Mitral Valve Normal mitral valve. Tricuspid Valve Normal tricuspid valve. Mild (1+) tricuspid valve insufficiency. Pulmonary artery systolic pressure is 28 mmHg. Aortic Valve Trisinus/trileaflet aortic valve. Mild diffuse aortic valve thickening. Pulmonic Valve Normal pulmonic valve. Great Vessels Normal aortic root. The pulmonary artery is normal size. Normal inferior vena cava. Pericardium/Pleural No pericardial effusion. MMode/2D Measurements & Calculations LVIDd: 4.4 cm IVSd: 0.62 cm Ao root diam: 3.2 cm LVIDs: 2.8 cm LVPWd: 0.69 cm LA dimension: 4.0 cm FS: 35.4 % LAV(MOD-bp): 44.1 ml LVAd ap4: 18.8 cm2 LVAd ap2: 14.4 cm2 LAV(MOD-bp) Indexed: 32.4 ml/m2 LVLd ap4: 5.4 cm LVLd ap2: 6.1 cm LAV(MOD-sp2): 40.1 ml EDV(MOD-sp4): 54.5 ml EDV(MOD-sp2): 32.4 ml LAV(MOD-sp4): 40.3 ml EDV(sp4-el): 55.9 ml EDV(sp2-el): 29.1 ml LVAs ap4: 8.4 cm2 LVAs ap2: 6.9 cm2 LVLs ap4: 4.2 cm LVLs ap2: 4.3 cm ESV(MOD-sp4): 14.0 ml ESV(MOD-sp2): 10.1 ml ESV(sp4-el): 14.0 ml ESV(sp2-el): 9.4 ml EF(MOD-sp4): 74.2 % EF(MOD-sp2): 68.8 % EF(sp4-el): 74.9 % SV(MOD-sp4): 40.4 ml SV(MOD-sp2): 22.3 ml SV(sp4-el): 41.8 ml TAPSE: 1.7 cm LA A4 area: 16.7 cm2 RA A4 area: 16.5 cm2 Time Measurements MV dec time: 0.23 sec Doppler Measurements & Calculations MV E max alex: 42.4 cm/sec Lat Peak E' Alex: 5.3 cm/sec Med Peak E' Alex: 6.1 cm/sec MV A max alex: 71.6 cm/sec E/E' lat: 7.9 E/E' med: 6.9 MV E/A: 0.59 Ao V2 max: 124.0 cm/sec LV V1 max: 88.8 cm/sec PA V2 max: 125.1 cm/sec Ao max P.2 mmHg LV V1 max P.2 mmHg PA V2 mean: 79.3 cm/sec Ao V2 mean: 82.4 cm/sec LV V1 mean P.5 mmHg PA V2 VTI: 20.9 cm Ao mean P.0 mmHg LV V1 mean: 58.6 cm/sec Ao V2 VTI: 18.4 cm LV V1 VTI: 14.9 cm AV (velocity ratio): 0.81 PI dec slope: 184.1 cm/sec2 TR max alex: 245.9 cm/sec TR max P.2 mmHg ECHO/Echo Complete Interpretation Summary Normal LV size. Left ventricular systolic function is normal. The estimated ejection fraction is 70 %. Structurally normal valves. Ordering Physician: Daisy Mack Referring Physician: Howard Zimmerman Chi Performed By: Idalia Guo, MYLA, RVT
--- NOTE | 2023-06-28 21:00 | NURSING ---
Starting Emergency Charting
[2023-06-28] MEDS: Atorvastatin Calcium 40 MG Tablet PO (21:03)
[2023-06-28] MEDS: 0.9% Saline Lock 10 ML Syringe IV (21:03)
[2023-06-28] MEDS: 0.9% Normal Saline (1000mL) 1,000 ML 100 ML IV (21:08)
[2023-06-29 01:43] VITALS: BMI 16.6
[2023-06-29 03:12] VITALS: BP 148/85; PULSE 73; RESP 18; TEMP 36.6; O2SAT 97
[2023-06-29 05:42] VITALS: BMI 16.6
[2023-06-29 06:19] VITALS: BP 114/87; PULSE 91; RESP 18; TEMP 36.6; O2SAT 95
[2023-06-29] MEDS: Midodrine HCl 5 MG Tablet PO (06:21)
[2023-06-29] MEDS: Carbidopa/Levodopa 25/100 Tablet PO ×2 (06:21→11:11)
[2023-06-29 06:36] LABS: Absolute Lymphocyte Count 5.59 X10^3/uL (0.83-4.51); Absolute Neutrophil Count 8.1 X10^3/uL (2.0-7.7); Basophil# 0.35 X10^3/uL; Basophil% 2.2 % (0-1); Eosinophil# 0.34 X10^3/uL; Eosinophils% 2.2 % (0-5); Hematocrit 39.1 % (37-47); Hemoglobin 12.7 g/dL (12.0-15.0); Lymphocyte # 5.59 X10^3/ul (0.83-4.51); Lymphocyte % 35.7 % (19-41); Mean Corp Hgb Conc 32.5 g/dL (32-36); Mean Corpuscular Hgb 29.7 pg (27.0-32.0); Mean Corpuscular Volume 91.6 fL (81-99); Mean Platelet Vol. 9.4 fl (6.2-12.0); Monocyte# 1.21 X10^3/uL; Monocyte% 7.7 % (0-10); NRBC Flagged by Analyzer 0 % (0-5); Neutrophil # 8.13 X10^3/uL (2.7-7.7); Neutrophil % 51.9 % (47-70); POSITIVE DIFFERENTIAL YES; POSITIVE MORPHOLOGY YES; Platelet Count 346 K/mm3 (150-450); RBC Distribution Width CV 13.9 % (11.6-14.6); RBC Distribution Width SD 46.9 fl (35.1-43.9); Red Blood Count 4.27 M/mm3 (4.2-5.4); White Blood Count 15.7 K/mm3 (4.4-11.0)
[2023-06-29 07:02] LABS: Differential Comment SCANNED; Differential Indicated SCAN CRITERIA MET
[2023-06-29 07:25] LABS: ALB/GLOB Ratio 0.9 RATIO (0.9-2.4); AST(SGOT) 22 U/L (15-37); Alanine Aminotransfer ALT/SGPT 13 U/L (13-56); Albumin, Serum 2.9 g/dL (3.2-5.0); Alkaline Phosphatase 91 U/L (45-117); Anion Gap 7 (5-15); BUN 22 mg/dL (7-18); Calcium,Total 8.7 mg/dL (8.5-10.1); Chloride 107 mmol/L (98-107); Cholesterol 210 mg/dL (200); Creatinine, Serum 0.92 mg/dL (0.55-1.02); EST Glomerular Filtration Rate 62 mL/min (>60); Est Glom Filt Rate - Afr Amer 74 mL/min (>60); Estimated Creatinine Clearance 28.02 ml/min; Globulin 3.1 g/dL (2.2-4.2); Glucose 93 mg/dL (74-106); High Density Lipoprotein 57 mg/dL; Sodium Level 139 mmol/L (136-145); Thyroid Stim Hormone (TSH) 2.02 uIU/mL (0.358-3.74); Triglycerides 134 mg/dL; Very Low Density Lipoprotein 27 mg/dL (5-40)
--- NOTE | 2023-06-29 07:49 | PN.HOSP_ITS ---
Reason for Visit Reason for Visit: Diagnoses Transient cerebral ischemic attack, unspecified (06/28/23) Objective Data Objective Data Vital Signs: Vital Signs Temp Pulse Resp BP Pulse Ox O2 Del Method 97.8 F 91 18 114/87 H 95 Room Air 06/29/23 06:19 06/29/23 06:19 06/29/23 06:19 06/29/23 06:19 06/29/23 06:19 06/29/23 06:19 Oxygen Delivery Method Room Air Weight: 90 lb 13.287 oz Body Mass Index (BMI) 16.6 Intake & Output: Intake and Output for Last 24 Hours 06/27/23 06/28/23 06/29/23 23:59 23:59 23:59 Intake Total 503.33 / 503.33 Balance 503.33 / 503.33 Lab / Micro Data 06/29/23 06:09 06/29/23 06:09 Labs: Laboratory Results - last 24 hr 06/28/23 12:22: POC Glucose 78 06/28/23 12:40: WBC 14.4 H, RBC 4.30, Hgb 12.8, Hct 40.2, MCV 93.5, MCH 29.8, MCHC 31.8 L, RDW Std Deviation 48.0 H, RDW Coeff of [place] 14.0, Plt Count 357, MPV 9.6, Immature Gran % (Auto) 0.300, Neut % (Auto) 33.4 L, Lymph % (Auto) 53.0 H, Gregg % (Auto) 8.4, Eos % (Auto) 2.3, Baso % (Auto) 2.6 H, Absolute Neuts (auto) 4.8, Absolute Lymphs (auto) 7.62 H, Nucleated RBC % 0, Differential Comment SCANNED, Reactive Lymphocytes 1+, PT 12.6, INR 1.0, APTT 27.6, Sodium 137, Potassium 4.1, Chloride 103, Carbon Dioxide 29.0, Anion Gap 5, BUN 24 H, Creatinine 1.02, Estim Creat Clear Calc 25.91, Est GFR (MDRD) Af Amer 66, Est GFR (MDRD) Non-Af 55 L, BUN/Creatinine Ratio 23.5 H, Glucose 91, Calcium 9.2, Magnesium 2.3, Troponin I High Sens 6 06/29/23 06:09: WBC 15.7 H, RBC 4.27, Hgb 12.7, Hct 39.1, MCV 91.6, MCH 29.7, MCHC 32.5, RDW Std Deviation 46.9 H, RDW Coeff of [place] 13.9, Plt Count 346, MPV 9.4, Immature Gran % (Auto) 0.300, Neut % (Auto) 51.9, Lymph % (Auto) 35.7, Gregg % (Auto) 7.7, Eos % (Auto) 2.2, Baso % (Auto) 2.2 H, Absolute Neuts (auto) 8.1 H , Absolute Lymphs (auto) 5.59 H, Nucleated RBC % 0, Differential Comment SCANNED, Sodium 139, Potassium 4.0, Chloride 107, Carbon Dioxide 25.0, Anion Gap 7, BUN 22 H, Creatinine 0.92, Estim Creat Clear Calc 28.02, Est GFR (MDRD) Af Amer 74, Est GFR (MDRD) Non-Af 62, BUN/Creatinine Ratio 24.0 H, Glucose 93, Calcium 8.7, Total Bilirubin 0.40, AST 22, ALT 13, Alkaline Phosphatase 91, Total Protein 6.0 L, Albumin 2.9 L, Globulin 3.1, Albumin/Globulin Ratio 0.9, Triglycerides 134, Cholesterol 210 H, LDL Cholesterol 126, VLDL Cholesterol 27, HDL Cholesterol 57, TSH 2.02 Radiography Diagnostic Testing: Radiology Impression Brain CT 06/28/23 12:34 IMPRESSION: Chronic involutional changes of the brain. N.B. : The above Results were Read Back by Olivier Maradiaga MD to Dr Ezra MD, and understanding confirmed on 06/28/2023 12:55:52 (ET). Electronically Signed: Olivier Maradiaga MD at 12:57 EST , ADDENDUM: 06/28/23 1304 IMPRESSION: Chronic involutional changes of the brain. N.B. : The above Results were Read Back by Olivier Maradiaga MD to Dr Ezra MD, and understanding confirmed on 06/28/2023 12:55:52 (ET). Electronically Signed: Olivier Maradiaga MD at 12:57 EST , Head/Neck CTA 06/28/23 12:34 IMPRESSION: Mild degree of chronic calcific plaques at the origin of both the right and left internal carotid arteries. Electronically Signed: Olivier Maradiaga MD at 13:09 EST , ADDENDUM: 06/28/23 1316 IMPRESSION: Mild degree of chronic calcific plaques at the origin of both the right and left internal carotid arteries. N.B. : The above Results were Read Back by Olivier Maradiaga MD to Dr Ezra MD, and understanding confirmed on 06/28/2023 13:09:44 (ET). Electronically Signed: Olivier Maradiaga MD at 13:09 EST , Chest X-Ray 06/28/23 13:05 IMPRESSION: No radiographic evidence of acute cardiopulmonary disease. Electronically Signed: Fabien Angeles MD at 13:34 EST , Brain MRI 06/28/23 16:56 IMPRESSION: Mild atrophy and moderate periventricular white matter ischemic change. No evidence for acute infarct. Electronically Signed: Renzo Griffith MD at 18:52 EST , Assessment & Plan Assessment/Plan (1) Brain TIA: PLAN: Plan The patient is an 88 y/o F was admitted with confusion, difficulty in getting her words out and was trying to put 2 sentences to get her that did not match or meaningful. Upon ED arrival patient improved. LK W was 8:30 PM on the evening before admission. #1. Transient expressive aphasia concerning for TIA, currently resolved: Will admit to PCU, will obtain MRI Brain, ECHO with bubble study, PT/OT/Speech/Nutrition evaluation per protocol. Will allow permissive HTN, maintain on asa with full-strength dose administered upon presentation, add low- dose statin w/ AM FLP, fall precautions. Mag, TSH, FLP, HgbA1c requested. Maintain on fall and aspiration precautions. Given stroke alert report will request ongoing neurology evaluation. #2. Parkinson's disease: Complicates presentation, will continue patient home Sinemet regimen, maintain on fall precautions, PT/OT consulted as noted as well as case management for discharge planning. Patient does report using a walker in her home. #3. History PAC/PVC: EKG upon presentation with significant evidence of PACs/PVCs however per discussion with ED physician do agree that P waves are present as initially reading atrial fibrillation, will continue monitor on telemetry, not on any beta-dorene therapy. #4. Hypertension: Will maintain permissive hypertension given presentation with parent agents per stroke protocol. Patient does have orthostasis and is on chronic low-dose midodrine therapy #5. Hyperlipidemia: Not on statin therapy, adding low-dose per stroke protocol recommendation pending further evaluation as noted, FLP in AM. #6. Chronic orthostasis: We will continue patient home chronic midodrine regimen, maintain on fall precautions. #7. Chronic Kidney Disease Stage II per GFR trending: Admission BUN/Cr 24/1.02, baseline renal function appears primarily 1.1-1.3, repeat BMP in AM. #8. Valvular heart disease: 01/15/2023 echocardiogram with EF 60%, mild MVI, trivial LEON. Repeat echo requested for bubble study. 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 #10. Lymphoma: Unclear specific type or diagnosis timeline, given presentation with lymphocytosis and the fact that patient does admit she sees Dr. [facility] oncology routinely suspect this is an ongoing health issue, encourage continued follow-up as previously arranged. #11. DVT prophylaxis: Heparin. #12. CODE status: Patient IGNACIA is her son and living will is currently in place. Discussed CODE status at length including difference between FULL code, DNR-CCA and DNR-CC status. Following discussions about the differences in these status, requested DNR-CCA, no intubation status. Advanced Care Planning Face to Face Time: 16 minutes.
[2023-06-29 08:24] VITALS: O2SAT 96
[2023-06-29 08:44] VITALS: BP 113/84; PULSE 71; RESP 14; TEMP 36.6; O2SAT 94
[2023-06-29] MEDS: Aspirin 81 MG TAB.CHEW PO (08:46)
[2023-06-29 08:51] VITALS: O2SAT 96
[2023-06-29 09:07] LABS: Hemoglobin A1c 5.3 % (3.8-5.6)
--- NOTE | 2023-06-29 09:40 | PCM.DC ---
Discharge Instructions Diet Discharge Diet: 2000 mg Sodium Diet Activity Discharge Activity: Return to Normal Activity Weight Bearing Status: Weight bearing as tolerated Dressing / Incision Call your doctor if you observe: Fever of 101 or Higher, Coldness, Increased Pain, Numbness or Tingling, Change in Color, Inability to urinate, Inability to have a bowel movement, Shortness of breath, Dizziness, Fainting spells, Swelling in the ankles, Chest pain, Prolonged hiccupping, Increased palpitations (irregular heartbeat) and Calf discomfort Follow Up Care When: IN 2 WEEKS Test Results: Test results from this visit will be discussed in further detail at your follow-up appointment, if applicable. Discharge Plan Admission Admit Date/Time: 06/28/23 13:34 Primary Reason for Your Visit: Transient Ischmeic stoke Attending Provider: Avel Massey Primary Care Provider: Howard Zimmerman Chi Consulting Providers: Carlos Whipple; Karen Mckeon; Darcy Hernandez; Paige Martinez; Farzana Levin; Timothy Fortune; Cherie Mark; Jose Benson; Isiah Kelly; Eri Interiano; Vincent Suresh; Alayna Valverde; Ruy Sun; Elian Stroud; John Quesada; Pamela Kamara; Jonathon Rodríguez; Mallika Pinon; Roopa Tolbert; Daisy Mack Discharge Orders/Prescriptions Prescriptions: New atorvastatin 40 mg Tablet 40 mg PO QHS 30 Days Qty: 30 2RF aspirin 81 mg Tablet,Chewable 81 mg PO BREAKFAST 30 Days Qty: 30 3RF Continued carbidopa-levodopa 25-100 mg tablet 2 tab PO TID Patient Comments: patient took home dose at 1620 multivitamin tablet 1 tab PO DAILY albuterol sulfate 90 mcg/actuation HFA aerosol inhaler 2 puff INHALATION Q4H PRN (Reason: shortness of breath or wheezing) Patient Comments: TAKE 2 PUFFS BY MOUTH EVERY 4 HOURS NEEDED Rx Instructions: only uses rarely (1-2 times per year) midodrine 5 mg tablet 5 mg PO TID Patient Comments: TAKE 1 TABLET BY MOUTH THREE TIMES A DAY Other Ambulatory Orders: 30 Day Event Recorder Preventi (Urgent) Timeframe: 1 Day Facility: [facility] - Location: Cardiovascular Services Ordered By: Dr. Avel Massey Referrals / Follow Up: Mauri Florez MD [Non-Staff -Ordering Privileges] - Within 1 Month (for TIA) Howard Zimmerman Chi, MD [Primary Care Provider] - Disposition Disposition (needs filled in before D/C Order can be placed): Home, Self Care
--- NOTE | 2023-06-29 10:49 | NURSING ---
while working with therapy patient was noted to have O2 sats in the 70s upon returning to room after walking in giang. she recovered to 90s on room air after sitting down. patient denies feeling SOB
--- NOTE | 2023-06-29 13:46 | PCM.DC.SUM ---
Providers Date of Admission: 06/28/23 Date of Discharge: 06/29/23 Primary Care Physician: Dr. Howard Zimmerman MD Consultations 06/28/23 19:04 Consult: Tele-Neurology Routine Consulting Provider: [facility] Reason for Consult: Acute Ischemic Stroke/TIA EMERGENT Consult: Yes MD Notified: Yes Date Notified: 06/28/23 Time Notified: 13:37 Method of Notification: ED Physician Initiated Comments:: Started as telestroke alert Nursing Unit Staff Notify [facility] of Tele-Neurology Consult: Yes Reason For Visit: TIA Diagnosis Discharge Diagnosis (1) Brain TIA: Status: Acute Code(s): G45.9 - Transient cerebral ischemic attack, unspecified Plan The patient is an 88 y/o F was admitted with confusion, difficulty in getting her words out and was trying to put 2 sentences to get her that did not match or meaningful. Upon ED arrival patient improved. LK W was 8:30 PM on the evening before admission. #1. Transient expressive aphasia concerning for TIA, currently resolved: Patient was admitted in PCU. MRI brain does not show acute infarct. CTA head and neck shows mild degree of calcific plaque at origin of bilateral ICA. 2D echo pending. Stroke protocol was followed with PT OT speech evaluation and [facility] neurologist consult. A1c normal. Patient does not have diabetes. LDL 126, total cholesterol 200 and HDL normal. TSH normal. Patient is discharged on baby aspirin and atorvastatin 40 mg daily as recommended by neurologist. Discussed with the neurologist. Patient discharged on 30-day event monitor. On cardiac telemetry patient normal sinus rhythm. #2. Parkinson's disease: Continue Sinemet. Patient does report using a walker in her home. #3. History PAC/PVC: On awake overnight monitor patient said PVCs and PACs. But sinus rhythm. Rest as mentioned above 30-day event monitor approved by Dr. Vigil. Heart rate is controlled. #4. Hypertension: Patient remains permissive hypertension range. Today, blood pressure in normal range. Patient has history of orthostatic hypotension and is on midodrine 5 mg 3 times daily at home. Continued #5. Hyperlipidemia: As mentioned above #6. Chronic orthostasis: As mentioned above. #7. Chronic Kidney Disease Stage II per GFR trending: Admission BUN/Cr 24/1.02, baseline renal function appears primarily 1.1-1.3, BUN/creatinine 22/0.92. No DONY. #8. Valvular heart disease: 01/15/2023 echocardiogram with EF 60%, mild MVI, trivial LEON. Echo pending. 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 #10. Lymphoma: Unclear specific type or diagnosis timeline, given presentation with lymphocytosis and the fact that patient does admit she sees Dr. [facility] oncology routinely suspect this is an ongoing health issue, encourage continued follow-up as previously arranged. #11. DVT prophylaxis: Heparin. #12. CODE status: Patient IGNACIA is her son and living will is currently in place. Discussed CODE status at length including difference between FULL code, DNR-CCA and DNR-CC status. Following discussions about the differences in these status, requested DNR-CCA, no intubation status. Discharge medication reconciliation done. Discharge follow-up instructions completed. Discharge process discussed with the patient and all questions were answered to patient's satisfaction. Follow with PCP in 1 to 2 weeks Total time spent, exact 35 minutes on discharge meds reconciliation, examination, coordination of care with nurses and ancillary staff, review of imaging and blood test and discussion with the patient on follow-up instructions. Laboratory Results 06/28/23 12:40: Differential Comment SCANNED, Reactive Lymphocytes 1+, Magnesium 2.3 06/29/23 06:09: WBC 15.7 H, RBC 4.27, Hgb 12.7, Hct 39.1, MCV 91.6, MCH 29.7, MCHC 32.5, RDW Std Deviation 46.9 H, RDW Coeff of [place] 13.9, Plt Count 346, MPV 9.4, Immature Gran % (Auto) 0.300, Neut % (Auto) 51.9, Lymph % (Auto) 35.7, [place] % (Auto) 7.7, Eos % (Auto) 2.2, Baso % (Auto) 2.2 H, Absolute Neuts (auto) 8.1 H, Absolute Lymphs (auto) 5.59 H, Nucleated RBC % 0, Differential Comment SCANNED, Sodium 139, Potassium 4.0, Chloride 107, Carbon Dioxide 25.0, Anion Gap 7, BUN 22 H, Creatinine 0.92, Estim Creat Clear Calc 28.02, Est GFR (MDRD) Af Amer 74, Est GFR (MDRD) Non-Af 62, BUN/Creatinine Ratio 24.0 H, Glucose 93, Hemoglobin A1c 5.3, Calcium 8.7, Total Bilirubin 0.40, AST 22, ALT 13, Alkaline Phosphatase 91, Total Protein 6.0 L, Albumin 2.9 L, Globulin 3.1, Albumin/Globulin Ratio 0.9, Triglycerides 134, Cholesterol 210 H, LDL Cholesterol 126, VLDL Cholesterol 27, HDL Cholesterol 57, TSH 2.02 Medications at Discharge Home Medications multivitamin 1 tab PO DAILY vitamin 11/20/18 carbidopa 25 mg-levodopa 100 mg tablet 2 tab PO TID parkinsons 01/05/23 albuterol sulfate 90 mcg/actuation aerosol inhaler 2 puff inhalation Q4H PRN shortness of breath or wheezing 01/15/23 midodrine 5 mg tablet 5 mg PO TID blood pressure 06/28/23 aspirin 81 mg chewable tablet 81 mg PO BREAKFAST 1 month #30 tabs 06/29/23 atorvastatin 40 mg tablet 40 mg PO QHS 1 month #30 tabs 06/29/23 Physical Exam Narrative Seen and examined. On cardiac telemetry patient sinus rhythm PVCs. Physical exam General: Alert, Oriented x3, Cooperative HEENT: Atraumatic, PERRLA, EOMI, Normocephalic Oral: No Gingival or Mucosal Lesions/ Ulcerations Neck: Supple, No JVD, Negative Carotid Bruits Lungs: Air entry diminished in bilateral lung bases. No crepitation/rhonchi Cardiovascular: Regular rate, Regular Rhythm, Normal S1, Normal S2, PVCs. No murmurs Abdomen: Bowel Sounds Present, Soft, Non Tender, Non-Distended : No renal angle tenderness. No suprapubic tenderness. Extremities: No edema, Capillary Refill Less than 3 Seconds Skin: No rashes, No breakdown Musculoskeletal: No Tenderness to Palpation of Joints or Extremities. On wheeled walker. Neurological: Cranial nerves II-XII grossly intact, DTR 2+/4. Mild stiffness, bradykinesia. Parkinson's disease. Mild language deficit resolved. Psych/Mental Status: Flat affect. Weight / BMI Weight Weight: 90 lb 13.287 oz Body Mass Index (BMI) 16.6 ABG / Lab / Microbiology Data 06/29/23 06:09 06/29/23 06:09 Laboratory: Laboratory Results - last 24 hr 06/28/23 12:40: Differential Comment SCANNED, Reactive Lymphocytes 1+, Magnesium 2.3 06/29/23 06:09: WBC 15.7 H, RBC 4.27, Hgb 12.7, Hct 39.1, MCV 91.6, MCH 29.7, MCHC 32.5, RDW Std Deviation 46.9 H, RDW Coeff of [place] 13.9, Plt Count 346, MPV 9.4, Immature Gran % (Auto) 0.300, Neut % (Auto) 51.9, Lymph % (Auto) 35.7, [place] % (Auto) 7.7, Eos % (Auto) 2.2, Baso % (Auto) 2.2 H, Absolute Neuts (auto) 8.1 H, Absolute Lymphs (auto) 5.59 H, Nucleated RBC % 0, Differential Comment SCANNED, Sodium 139, Potassium 4.0, Chloride 107, Carbon Dioxide 25.0, Anion Gap 7, BUN 22 H, Creatinine 0.92, Estim Creat Clear Calc 28.02, Est GFR (MDRD) Af Amer 74, Est GFR (MDRD) Non-Af 62, BUN/Creatinine Ratio 24.0 H, Glucose 93, Hemoglobin A1c 5.3, Calcium 8.7, Total Bilirubin 0.40, AST 22, ALT 13, Alkaline Phosphatase 91, Total Protein 6.0 L, Albumin 2.9 L, Globulin 3.1, Albumin/Globulin Ratio 0.9, Triglycerides 134, Cholesterol 210 H, LDL Cholesterol 126, VLDL Cholesterol 27, HDL Cholesterol 57, TSH 2.02 Radiography Diagnostic Testing: Radiology Impression Brain MRI 06/28/23 16:56 IMPRESSION: Mild atrophy and moderate periventricular white matter ischemic change. No evidence for acute infarct. Electronically Signed: Renzo Griffith MD at 18:52 EST , Echocardiogram 06/28/23 19:04 Interpretation Summary Normal LV size. Left ventricular systolic function is normal. The estimated ejection fraction is 70 %. Structurally normal valves. Ordering Physician: Daisy Mack Referring Physician: Howard Zimmerman Chi Performed By: Idalia Guo, MYLA, RVT D/C Instructions Discharge Diet: 2000 mg Sodium Diet Weight Bearing Status: Weight bearing as tolerated Call your doctor if you observe: Fever of 101 or Higher, Coldness, Increased Pain, Numbness or Tingling, Change in Color, Inability to urinate, Inability to have a bowel movement, Shortness of breath, Dizziness, Fainting spells, Swelling in the ankles, Chest pain, Prolonged hiccupping, Increased palpitations (irregular heartbeat) and Calf discomfort When: IN 2 WEEKS Meaningful Use Info Meaningful Use Diagnoses (Choose all that apply): None applicable Discharge Plan Admission Admit Date/Time: 06/28/23 13:34 Primary Reason for Your Visit: Transient Ischmeic stoke Attending Provider: Avel Massey Primary Care Provider: Howard Zimmerman Chi Consulting Providers: Cralos Whipple; Karen Mckeon; Darcy Hernandez; Paige Martinez; Farzana Levin; Timothy Fortune; Cherie Mark; Jose Benson; Isiah Kelly; Eir Interiano; Vincent Suresh; Alayna Valverde; Ruy Sun; Elian Stroud; John Quesada; Pamela Kamara; Jonathon Rodríguez; Mallika Pinon; Roopa Tolbert; Daisy Mack Discharge Orders/Prescriptions Prescriptions: New atorvastatin 40 mg Tablet 40 mg PO QHS 30 Days Qty: 30 2RF aspirin 81 mg Tablet,Chewable 81 mg PO BREAKFAST 30 Days Qty: 30 3RF Continued carbidopa-levodopa 25-100 mg tablet 2 tab PO TID Patient Comments: patient took home dose at 1620 multivitamin tablet 1 tab PO DAILY albuterol sulfate 90 mcg/actuation HFA aerosol inhaler 2 puff INHALATION Q4H PRN (Reason: shortness of breath or wheezing) Patient Comments: TAKE 2 PUFFS BY MOUTH EVERY 4 HOURS NEEDED Rx Instructions: only uses rarely (1-2 times per year) midodrine 5 mg tablet 5 mg PO TID Patient Comments: TAKE 1 TABLET BY MOUTH THREE TIMES A DAY Other Ambulatory Orders: 30 Day Event Recorder Preventi (Urgent) Timeframe: 1 Day Facility: [facility] - Location: Cardiovascular Services Ordered By: Dr. Avel Massey Referrals / Follow Up: Mauri Florez MD [Non-Staff -Ordering Privileges] - Within 1 Month (for TIA Office closed, please call to schedule appoitment) Howard Zimmerman Chi, MD [Primary Care Provider] - (Office closed please call to schedule appointment) Disposition Disposition (needs filled in before D/C Order can be placed): Home Health Service Charges/Coding Visit Charges Inpatient E&M: 25834 Disch Hosp >30min
--- NOTE | 2023-06-29 14:53 | PHA.DC_ITS ---
Pharmacy [facility] has performed discharge medication reconciliation and counseling for this patient. The patient's discharge medication list was reviewed for discrepancies and discrepancies were resolved. The patient was counseled on the following discharge medications and changes in medications for homegoing were reviewed. The Reason for Use, instructions for use, and potential side effects were reviewed for all new medications. The patient's questions regarding all of their medications were answered. 1. Aspirin 81 mg PO daily 2. Atorvastatin 40 mg PO daily The patient was able to verbally demonstrate an understanding of their discharge medications. Medications at Discharge Home Medications multivitamin 1 tab PO DAILY vitamin 11/20/18 carbidopa 25 mg-levodopa 100 mg tablet 2 tab PO TID parkinsons 01/05/23 albuterol sulfate 90 mcg/actuation aerosol inhaler 2 puff inhalation Q4H PRN shortness of breath or wheezing 01/15/23 midodrine 5 mg tablet 5 mg PO TID blood pressure 06/28/23 aspirin 81 mg chewable tablet 81 mg PO BREAKFAST 1 month #30 tabs 06/29/23 atorvastatin 40 mg tablet 40 mg PO QHS 1 month #30 tabs 06/29/23
--- NOTE | 2023-06-29 16:00 | CASEMGMT ---
FARHAD CHAU NOTE: 3:05 PM: Pt being discharged. Therapy notes reviewed. Pt ambulated 200 ft CGA w/use of WW and additional therapy recommended. FARHAD CHAU to room earlier this evening. Pt sitting up in chair. Introduced self and role. Pt states she lives alone and her son, Lalo, lives nearby and can assist her if needed. She states he will be taking her home @ discharge. She states she has [employer] that comes 5 days/week in the morning to assist her in the home. Discussed therapy evals and HHC. Questions answered. Pt agreeable to HHC and denied having any preference. When she was made aware [facility] has HHC she states would prefer referral with them and declines wanting list of other HHC options. FARHAD CHAU placed call to Dr Zimmerman's office message received that it was after-hours, so unable to schedule an appt. Call placed to Jazzy @ [facility] and referral made. They are able to accept care w/tentative SOC next , pending if Dr Zimmerman will require a PCP appt before agreeing to follow for HHC. She states she will f/u re: this on Sunday. 1600: FARHAD CHAU back to room. Son, Lalo, @ bedside. Pt and Lalo both made aware [facility] able to accept pt w/tentative SOC next Sunday, pending response from Dr Zimmerman and if pt will need to be seen in his office prior to SOC. Questions answered. Pt and Lalo deny having further discharge needs. Inquired if pt has a CM/passport services. Lalo states she does not and that they pay the home aides privately. Long HUGHES RN, CM
--- NOTE | 2023-06-29 16:45 | CASEMGMT ---
Met with patient and her son to complete SAN form. SAN form explained to both who voiced understanding and signed form. Original form placed in pt?s chart and copy provided to?patient. Magaly Tobin, Discharge Planning Asst
--- NOTE | 2023-06-29 19:38 | CON.PCM.NE_ITS ---
Assessment and Plan: Stroke Assessment/Plan 88 yo F w PMH of HTN, HLD, parkinsons presenting with transient aphasia. History concerning for TIA. MRI brain showed chronic white matter disease but no stroke. I recommend the patient take ASA 81, atorvastatin 40. LDL was 126 and the goal after a TIA is <70, this will need to be followed as an outpatient. fu HbA2c. CTA showed no severe stenosis and TTE was unremarkable. I do recommend a 30 day cardiac event monitor to screen for atrial fibrilation. PT/OT are consulted. She should follow up with PCP in 2 weeks and neurology in 4-6 weeks. HPI Consult Data Date of Consult: 06/29/23 HPI Narrative HPI Narrative: 88 yo ?F w a PMH of HTN, atrial myxoma, CKD, HLD, HTN, lymphoma,mitral valve prolapse w regurg, parkisons disease, premature atrial contractions who is admitted for a transient inability to speak. The patient went to bed at [facility]. She lives alone so not sure if had difficulty with speech upon awakening. When home health aid came in the morning to check on her she had difficulty speaking and forming words. In addition, many of the words she tried to say did not make sense. Her son reportedly stated her speech was slurred. No facial droop, weakness, vision loss, numbness. Currently feels back to normal. Episode lasted for 3 or 4 hours. No prior episodes. [facility] Medical History CKD (chronic kidney disease), stage II History of atrial myxoma Hyperlipidemia Hypertension Lymphoma Nonrheumatic mitral (valve) prolapse Nonrheumatic mitral valve regurgitation Nonrheumatic tricuspid valve regurgitation Parkinsons disease Parotid tumor Premature atrial contractions Premature ventricular contraction Home Medications multivitamin 1 tab PO DAILY vitamin 11/20/18 [History Last Taken 01/15/23] carbidopa 25 mg-levodopa 100 mg tablet 2 tab PO TID parkinsons 01/05/23 [History Last Taken 06/28/23 16:20] albuterol sulfate 90 mcg/actuation aerosol inhaler 2 puff inhalation Q4H PRN shortness of breath or wheezing 01/15/23 [History Last Taken Unknown] midodrine 5 mg tablet 5 mg PO TID blood pressure 06/28/23 [History Last Taken 06/28/23 16:20] aspirin 81 mg chewable tablet 81 mg PO BREAKFAST 1 month #30 tabs 06/29/23 [Rx Last Taken Unknown] atorvastatin 40 mg tablet 40 mg PO QHS 1 month #30 tabs 06/29/23 [Rx Last Taken Unknown] Allergy/AdvReac Type Severity Reaction Status Date / Time Penicillins Allergy Rash Verified 06/28/23 12:19 tramadol AdvReac Other Verified 06/28/23 12:19 Family History Father Heart disease CHF (congestive heart failure) Mother No problems noted. Surgical History (Updated 06/28/23 @ 14:[address] Daisy Mack MD) History of laparoscopic cholecystectomy History of splenectomy Social History (Updated 06/28/23 @ 14:[address] Daisy Mack MD) household members: none Smoking Status: Never smoker alcohol intake: current details: occasional substance use type: does not use Vital Signs Vital Signs Vital Signs: 06/28/23 20:51 06/28/23 20:10 06/28/23 22:00 Temperature 97.7 F L Temperature Source Oral Pulse Rate 90 Pulse Strength Respiratory Rate 16 Respiratory Effort Normal Non-Labored Respiratory Depth Normal Respiratory Pattern Normal Blood Pressure 117/63 Blood Pressure Mean 81 Blood Pressure Source Monitor Blood Pressure Position Semi-Fowlers Blood Pressure Location Right Arm Pulse Ox 98 96 Oxygen Delivery Method Room Air Room Air Room Air 06/29/23 03:12 06/29/23 03:15 06/29/23 06:19 Temperature 97.8 F 97.8 F Temperature Source Temporal Temporal Pulse Rate 73 91 Pulse Strength Respiratory Rate 18 18 Respiratory Effort Normal Non-Labored Respiratory Depth Normal Respiratory Pattern Normal Blood Pressure 148/85 H 114/87 H Blood Pressure Mean 106 96 Blood Pressure Source Monitor Monitor Blood Pressure Position Sitting Sitting Blood Pressure Location Left Arm Right Arm Pulse Ox 97 95 Oxygen Delivery Method Room Air Room Air Room Air 06/29/23 08:44 06/29/23 08:51 06/29/23 08:51 Temperature 98 F Temperature Source Oral Pulse Rate 71 Pulse Strength Normal (2+) Respiratory Rate 14 Respiratory Effort Normal Respiratory Depth Normal Respiratory Pattern Normal Blood Pressure 113/84 H Blood Pressure Mean 93 Blood Pressure Source Monitor Blood Pressure Position Semi-Fowlers Blood Pressure Location Left Arm Pulse Ox 94 96 Oxygen Delivery Method Room Air Room Air 06/29/23 08:24 Temperature Temperature Source Pulse Rate Pulse Strength Respiratory Rate Respiratory Effort Respiratory Depth Respiratory Pattern Blood Pressure Blood Pressure Mean Blood Pressure Source Blood Pressure Position Blood Pressure Location Pulse Ox 96 Oxygen Delivery Method Room Air Weight Weight: 41.2 kg Body Mass Index (BMI) 16.6 EEG Results Procedure Details EEG Procedure Details: ADDIS CARRENO is a 88 year old F with a past medical history of , who presents for evaluation of Electroencephalogram on DATE at TIME Physical Exam Narrative MS- awake, alert, oriented x3, able to name, fluent speech, no dysarthria, no aphasia, no neglect, poor hearing CN- VFF, EOMI, no gaze deviation, no facial droop, nml facial sensation M- diffuse dyskinesia, antigravity in all extremities without drift. No pronator drift S-nml to LT in all ext C- no appendicular dysmetria Lab / Micro Data 06/29/23 06:09 06/29/23 06:09 Labs: Laboratory Results - last 24 hr 06/29/23 06:09: WBC 15.7 H, RBC 4.27, Hgb 12.7, Hct 39.1, MCV 91.6, MCH 29.7, MCHC 32.5, RDW Std Deviation 46.9 H, RDW Coeff of [place] 13.9, Plt Count 346, MPV 9.4, Immature Gran % (Auto) 0.300, Neut % (Auto) 51.9, Lymph % (Auto) 35.7, [place] % (Auto) 7.7, Eos % (Auto) 2.2, Baso % (Auto) 2.2 H, Absolute Neuts (auto) 8.1 H , Absolute Lymphs (auto) 5.59 H, Nucleated RBC % 0, Differential Comment SCANNED, Sodium 139, Potassium 4.0, Chloride 107, Carbon Dioxide 25.0, Anion Gap 7, BUN 22 H, Creatinine 0.92, Estim Creat Clear Calc 28.02, Est GFR (MDRD) Af Amer 74, Est GFR (MDRD) Non-Af 62, BUN/Creatinine Ratio 24.0 H, Glucose 93, Hemoglobin A1c 5.3, Calcium 8.7, Total Bilirubin 0.40, AST 22, ALT 13, Alkaline Phosphatase 91, Total Protein 6.0 L, Albumin 2.9 L, Globulin 3.1, Albumin/Globulin Ratio 0.9, Triglycerides 134, Cholesterol 210 H, LDL Cholesterol 126, VLDL Cholesterol 27, HDL Cholesterol 57, TSH 2.02 Imagaing Radiology Impression Echocardiogram 06/28/23 19:04 Interpretation Summary Normal LV size. Left ventricular systolic function is normal. The estimated ejection fraction is 70 %. Structurally normal valves. Ordering Physician: Daisy Mack Referring Physician: Howard Zimmerman Chi Performed By: Idalia Guo, MYLA, RVT
== END 2023-06-29 13:42 | disposition home health service (06) ==
LOC: ED 13:28 → PCU 16:42
PROVIDERS: Admitting Provider Family Medicine; Emergency Provider Emergency Medicine; PCP Family Medicine Geriatric Medicine; Visit Provider Internal Medicine
DX: G45.9 Transient cerebral ischemic attack, unspecified (principal); C85.90 Non-Hodgkin lymphoma, unspecified, unspecified site; I12.9 Hypertensive chronic kidney disease with stage 1 through stage 4 chronic kidney disease, or unspecified chronic kidney disease; N18.2 Chronic kidney disease, stage 2 (mild); R47.01 Aphasia; E78.5 Hyperlipidemia, unspecified; R41.0 Disorientation, unspecified; Z79.899 Other long term (current) drug therapy; G20.A1 Parkinson's disease without dyskinesia, without mention of fluctuations; Z79.82 Long term (current) use of aspirin
CPT/HCPCS: 36415; 70450; 70496; 70498; 70551; 71045; 80048; 80053; 80061; 82962; 83036; 83735; 84443; 84484; 85025; 85610; 85730; 93005; 93306; 94668; 94762; 96361; 96374; 97162; 97166; 97802; 99221; 99252; 99284; J7030; Q9967; A4216; G0378; G0463

== ENCOUNTER 2023-07-28 09:13 | Emergency (ER) | payer MEDICARE, SELFPAY ==
[2023-07-28 09:14] VITALS: PULSE 77; RESP 16; TEMP 36.1; O2SAT 97; BMI 18.1
--- NOTE | 2023-07-28 10:01 | CT_ITS ---
HISTORY: fall. Abnormal speech. TECHNIQUE: Multiple axial images were obtained of the head without intravenous contrast. A radiation dose optimization technique was used for this scan. 234 images. COMPARISON: 06/28/2023. FINDINGS: BRAIN PARENCHYMA: Multiple foci and zones of low attenuation in the bilateral cerebral white matter compatible with chronic small vessel ischemic gliosis. No acute intra-axial hemorrhage identified. CSF SPACES: Generalized volume loss. No midline shift or other significant mass effect. No acute extra-axial hemorrhage seen. OTHER: Intact calvarium. No significant air fluid levels in the paranasal sinuses or mastoid air cells. Bilateral lens resections. CT/Brain/Head without Contrast IMPRESSION: No acute intracranial process identified. Chronic involutional and white matter changes. Electronically Signed: Ree Albright MD at 11:10 EST ,
--- NOTE | 2023-07-28 10:03 | ED.VIS.FALL ---
HPI HPI - Fall History of Present Illness Chief Complaint: Fall Informant: patient and family Occured/Mechanism Occurred: Yesterday and Hours Mechanism/Context: Yes same level fall and Yes trip Usually ambulates: Without assistance Pain/Injury Pain Location: upper extremity Quality of Pain: Dull Current Severity: Mild Maximum Severity: 6/10 Associated Symptoms Associated Symptoms: Negative for Parasthesias, Weakness, Loss of function, Inability to ambulate or Loss of consciousness Narrative Narrative: 88-year-old female history of Parkinson's disease, kidney disease and hypertension. Patient also had a TIA about a month ago was hospitalized. Last night she fell at home causing a laceration around her right wrist just proximal to her right thumb. She believes this occurred around 9 PM. Today when her home health care worker arrived this morning 815 found her in bed with blood on her wrist and face. She does not believe she hit her head. No LOC. No recent illness. Son states that her speech is a little off. Tetanus Immunization: <5 years Prior similar symptoms: No Recent Illness/Hospitalization: Yes PFSH PFSH Medical History CKD (chronic kidney disease), stage II History of atrial myxoma Hyperlipidemia Hypertension Lymphoma Nonrheumatic mitral (valve) prolapse Nonrheumatic mitral valve regurgitation Nonrheumatic tricuspid valve regurgitation Parkinsons disease Parotid tumor Premature atrial contractions Premature ventricular contraction Home Medications multivitamin 1 tab PO DAILY vitamin 11/20/18 [History Last Taken 01/15/23] carbidopa 25 mg-levodopa 100 mg tablet 2 tab PO TID parkinsons 01/05/23 [History Last Taken 06/28/23 16:20] albuterol sulfate 90 mcg/actuation aerosol inhaler 2 puff inhalation Q4H PRN shortness of breath or wheezing 01/15/23 [History Last Taken Unknown] midodrine 5 mg tablet 5 mg PO TID blood pressure 06/28/23 [History Last Taken 06/28/23 16:20] aspirin 81 mg chewable tablet 81 mg PO BREAKFAST 1 month #30 tabs 06/29/23 [Rx Last Taken Unknown] atorvastatin 40 mg tablet 40 mg PO QHS 1 month #30 tabs 06/29/23 [Rx Last Taken Unknown] Allergy/AdvReac Type Severity Reaction Status Date / Time Penicillins Allergy Rash Verified 07/28/23 09:19 tramadol AdvReac Other Verified 07/28/23 09:19 Family History Father Heart disease CHF (congestive heart failure) Mother No problems noted. Surgical History History of laparoscopic cholecystectomy History of splenectomy Social History household members: none Smoking Status: Never smoker alcohol intake: current details: occasional substance use type: does not use ROS ROS ED ROS Narrative Denies recent illness. Review of Systems ROS Unobtainable: Denies due to encephalopathy Constitutional Constitutional ED: Denies chills or fever(s) Eyes Eyes: Denies blurry vision ENT ENT ED: Denies ear pain Cardiovascular Cardiovascular: Denies chest pain Respiratory/Chest Respiratory/Chest: Denies cough or dyspnea Gastrointestinal Gastrointestinal: Denies abdominal pain Genitourinary Genitourinary ED: Denies dysuria or hematuria Musculoskeletal Musculoskeletal: Denies arthralgias Integumentary Denies abscess Neurologic Neurologic: Denies headache(s) Psychiatric Psychiatric: Denies anxiety Endocrine Endocrinology: Denies polydipsia or polyphagia Hematologic/Lymphatic Hematologic/Lymphatic: Denies easy bleeding, easy bruising or lymphadenopathy Allergic/Immunologic Allergic/Immunologic ED: Denies mouth swelling, tongue swelling or urticaria EXAM Physical Exam Narrative Exam Narrative: 88-year-old female vital signs are stable afebrile. She does look septic toxic. She is in no distress. Sitting upright in bed. Son at bedside. H EENT exam pupils are reactive light. No facial droop. No trauma to her face. She has dried blood on her left cheek but I think it is from the laceration from her wrist. There is no signs of trauma to her face or scalp. C-spine nontender. Back and spine nontender. Lungs are clear. Heart regular rhythm rate about 75 no murmur. Chest wall and ribs are nontender. Abdomen soft nontender. Pelvic girdle intact. Patient moving all 4 extremities. The right wrist radial side proximal to her thumb there is a skin tear/laceration. There is dried blood. There is also some tenderness to the distal radius. Moving all 4 extremities otherwise. Nontender no deformity. Neurologically she is awake alert. Answering questions following commands. Occasionally she will mispronouncing words. She is moving all 4 extremities. There is no paralysis. She is answering questions and following commands. Const Vital Signs: 07/28/23 09:14 07/28/23 09:19 07/28/23 13:48 Temperature 97 F L Temperature Source Temporal Pulse Rate 77 81 Respiratory Rate 16 16 Respiratory Effort Normal Non-Labored Respiratory Depth Normal Respiratory Pattern Normal Blood Pressure 153/106 H Blood Pressure Mean 121 Pulse Ox 97 96 Oxygen Delivery Method Room Air Room Air Positive well nourished and well developed; Negative for obese, cachectic, contractures or unkempt General Appearance ED: well developed; Negative for unkempt, cachectic or contractures Nutritional Appearance: Negative for cachectic or obese HEENT Reports normocephalic atraumatic; Negative for trauma, contusion, hematoma or tenderness Eyes PERRL and EOMs intact bilaterally General Eye ED: Negative for pale conjunctiva Neck full ROM, no lymphadenopathy and supple General: Negative for tenderness Chest Wall inspection of chest normal and palpation of chest normal Chest: Negative for other Resp normal respiratory effort, no retractions and clear to auscultation bilaterally Effort and Inspection: Negative for pain with movement Auscultation: Negative for rales, rhonchi or wheezes Cardio regular rate, regular rhythm, S1 normal heart sound, S2 normal heart sound and no murmurs Rate: Negative for bradycardia or tachycardic Rhythm: Negative for abnormal rhythm GI non-tender, non-distended and no masses Inspection: Negative for abdominal distention Palpation: soft; Negative for guarding or rebound tenderness present Back/Spine no CVA tenderness General Back: Negative for CVA tenderness Cervical Spine: Negative for cervical spine tenderness Thoracic Spine / Upper Back: Negative for ROM limited Lumbar Spine / Lower Back: Negative for lumbar spinal tenderness Neuro oriented x3, CN's II-XII intact bilaterally, moves all extremities and no focal motor deficits Sensorium / Orientation: alert, oriented to person, oriented to place and oriented to time; Negative for orientation impaired, confused, lethargic or stuporous Motor Exam: strength 5/5 throughout Psych mental status grossly normal and thought process normal Appearance: Negative for unkempt Attitude: No agitated Mood & Affect: Negative for depressed, anxious or tearful Skin Skin Narrative: Laceration/skin tear right distal wrist radial side. Lesions: no lesions Rashes: no rashes Trauma: laceration MDM MDM MDM Narrative Medical decision making narrative: 88-year-old female fell last night causing a laceration/skin tear to the right distal radius and wrist proximal to her right thumb. I will attempt to repair this. X-ray will be obtained. Screening labs due to the fall and a CAT scan of her brain due to her recent TIA and also occasionally she is mispronouncing a word. Repeat exam patient doing well. Was able to close the right wrist laceration. Can together well. Nurses ambulated the patient and she ambulated well. She definitely wants to be discharged home she does not want to be admitted. Family is comfortable with her being discharged home.They were instructed on wound care. Suture removal in 10 to 14 days. Return if any issues. Patient is doing well at 3:35 PM prior to discharge. History & Record Review Discussion w/independent historian: Patient and Family Additional record(s) reviewed:: Prior inpatient record, Prior outpatient record, Prior ED visit, Prior labs and No prior records Lab Data Attestation: I reviewed the patient's lab results. Lab results narrative: CBC shows elevated white count of 17. H&H of 12 and 37. Platelets 402. Electrolytes show a gap of 4. BUN 27 creatinine 1.19. Glucose 104. Liver enzymes unremarkable. Alkaline phosphatase 148. Right wrist x-ray no fracture. Arthritis right thumb. CT brain chronic changes. UA normal. Labs: Laboratory Results - last 24 hr 07/28/23 07/28/23 09:24 14:15 WBC 17.0 H RBC 4.07 L Hgb 12.4 Hct 37.4 MCV 91.9 MCH 30.5 MCHC 33.2 RDW Std Deviation 45.3 H RDW Coeff of [place] 13.4 Plt Count 402 MPV 10.3 Immature Gran % (Auto) 0.500 Neut % (Auto) 56.7 Lymph % (Auto) 33.4 [place] % (Auto) 7.1 Eos % (Auto) 0.4 Baso % (Auto) 1.9 H Absolute Neuts (auto) 9.6 H Absolute Lymphs (auto) 5.67 H Nucleated RBC % 0 Differential Comment SCANNED Reactive Lymphocytes 2+ Sodium 137 Potassium 4.2 Chloride 103 Carbon Dioxide 30.0 Anion Gap 4 L BUN 27 H Creatinine 1.19 H Estim Creat Clear Calc 23.66 Est GFR (MDRD) Af Amer 55 L Est GFR (MDRD) Non-Af 46 L BUN/Creatinine Ratio 22.7 H Glucose 104 Calcium 9.6 Total Bilirubin 0.70 AST 28 ALT 17 Alkaline Phosphatase 148 H Total Protein 7.2 Albumin 3.5 Globulin 3.7 Albumin/Globulin Ratio 0.9 Urine Color Yellow Urine Clarity Clear Urine pH 7.0 Ur Specific [place] 1.010 Urine Protein 15 H Urine Glucose (UA) Normal Urine Ketones Negative Urine Occult Blood Negative Urine Nitrite Negative Urine Bilirubin Negative Urine Urobilinogen Normal Ur Leukocyte Esterase Negative Urine RBC 0 SEEN Urine WBC 0 SEEN Ur Squamous Epith Cells 0 SEEN Amorphous Sediment 1+ Urine Bacteria 0 SEEN Urine Mucus 0 SEEN Radiography Diagnostic Testing: Clinical Impression(s) from Imaging Studies Brain CT 07/28/23 10:01 IMPRESSION: No acute intracranial process identified. Chronic involutional and white matter changes. Electronically Signed: Ree Albright MD at 11:10 EST Reading Location ID and State: [facility] / [place] Tel , Service support , Wrist X-Ray 07/28/23 10:49 IMPRESSION: No acute fracture or dislocation identified in the right wrist. Electronically Signed: Ree Albright MD at 11:06 EST , Right wrist x-ray, 3 views, interpreted by myself and the radiologist shows no acute fracture nor dislocation. 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 Rhythm Strip Rhythm Strip: Sinus Rhythm Rate: 74 Ectopy: None EKG Initial EKG: Attestation: I personally reviewed and interpreted this EKG as follows: Interpretation: Sinus Rhythm and No Acute Injury Pattern Comments: Normal sinus rhythm rate of 74 no acute signs of [place] or ischemia or significant dysrhythmia. Procedures Lacerations Laceration radial side right wrist repair:: Length: 2.36 in Depth: Sub Q Shape: Linear Prep: [place] Laceration repair: Irrigated, Lidocaine, Local and Skin sutures Number of Sutures/[place]: 6 Suture Information: Ethilon, Simple and 5-0 Comment: Laceration right wrist and proximal base of the thumb laceration about 6 cm. Below the skin subcu tissue. Local anesthetized with lidocaine. Cleaned with Shur-Clens. Washed with saline. Explored. Closed using #6, 5-0 Ethilon sutures simple interrupted. Good wound closure and hemostasis was obtained. Nurses will clean and dress. Discharge Plan Triage Chief Complaint: Fall ED Provider: Umesh Velázquez Dx/Rx/DC Orders Clinical Impression: Fall, Laceration of right hand Instructions: ED Laceration, Hand: All Closures Prescriptions: No Action carbidopa-levodopa 25-100 mg tablet 2 tab PO TID Patient Comments: patient took home dose at 1620 multivitamin tablet 1 tab PO DAILY albuterol sulfate 90 mcg/actuation HFA aerosol inhaler 2 puff INHALATION Q4H PRN (Reason: shortness of breath or wheezing) Patient Comments: TAKE 2 PUFFS BY MOUTH EVERY 4 HOURS NEEDED Rx Instructions: only uses rarely (1-2 times per year) midodrine 5 mg tablet 5 mg PO TID Patient Comments: TAKE 1 TABLET BY MOUTH THREE TIMES A DAY atorvastatin 40 mg Tablet 40 mg PO QHS 30 Days Qty: 30 2RF aspirin 81 mg Tablet,Chewable 81 mg PO BREAKFAST 30 Days Qty: 30 3RF Primary Care Provider: Howard Zimmerman Chi Referrals: Howard Zimmerman Chi, MD [Primary Care Provider] - As soon as possible Activity Restrictions/Additional Instructions: Elevate your right hand to decrease pain and swelling. Gently clean it daily with soap and water or peroxide and water. Apply antibiotic ointment. Stitches can come out in no less than 10 and I would do 14 days. Watch for any signs of infection such as redness, pus, fever or streaks if seen return. Tylenol for pain. Call and follow-up with primary care physician this week to be reevaluated Disposition Disposition: Home, Self Care
--- OUTSIDE RECORDS SUMMARY | 2023-07-28 10:15 | XMS RPT_ITS | CCD ---
Author Name Unknown Address [address] [place] [address] Organization [facility] Care Team Providers Care 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 Name Role Phone FARHAD Reagan, Amy Mao Unavailable Unavailabl e FARHAD Reagan, Amy Mao Unavailable Unavailabl e Taye, Chris-Chi Primary Care Provider Taye MASON, Chris-Gustavo Primary Care Provider Taye, Chris Chi Primary Care Provider [phone] DR CHRIS KOTHARI MDGUSTAVO Primary Care Physician Ivan PT, Sadaf Unavailable Unavailable Taye, Chris Chi Primary Care Provider Taye, Chris Chi Primary Care Provider Taye, Chris Chi Primary Care Provider TAYE, CHRIS CHI Primary Care Unavailable ITIN, SRIDEVI Referring Unavailable TAYE, CHRIS CHI Primary Care Unavailable BRADFORD, SELVIN Attending Unavailable TAYE, CHRIS CHI Primary Care Unavailable MASCI, BART A Referring Unavailable MASCI, BART A Attending Unavailable TAYE, CHRIS CHI Primary Care Unavailable MASCI, BART A Referring Unavailable TAYE, CHRIS CHI Primary Care Unavailable ITIN, SRIDEVI Referring Unavailable ITIN, SRIDEVI Attending Unavailable TAYE, CHRIS CHI Primary Care Unavailable SILVA HERNANDEZ Attending Unavailable TAYE, CHRIS CHI Primary Care Unavailable BRADFORD, SELVIN Referring Unavailable BRADFORD, SELVIN Attending Unavailable TAYE, CHRIS CHI Primary Care Unavailable BRADFORD, SELVIN Referring Unavailable TAYE, CHRIS CHI Primary Care Unavailable MASCI, BART A Referring Unavailable MASCI, BART A Attending Unavailable TAYE, CHRIS CHI Primary Care Unavailable MASCI, BART A Referring Unavailable Allergies Allergy Classification Reported Allergen(s) Allergy Type Date of Onset Reaction(s) Facility (2 sources) mold extract; Translations: [MOLD] Drug Allergy 1 [facility] Work Phone: [phone] (2 sources) potassium Drug Allergy 1 Rash [facility] Work Phone: [phone] (20 sources) traMADol; Translations: [TRAMADOL] Drug Allergy 7 Nausea Only, GI Upset [facility] Work Phone: [phone] (2 sources) RAGWEED drug allergy 1 [facility] Work Phone: [phone] (4 sources) Penicillins; Translations: [PENICILLINS] Propensity to adverse reactions to drug 5 [place], [place] (2 sources) Penicillins Drug Allergy 5 [facility] Work Phone: [phone] (19 sources) environmental [Other] Propensity to adverse reactions 5 [facility] Work Phone: [phone] (17 sources) Penicillins Drug Allergy 5 [facility] Work Phone: [phone] (2 sources) OTHER; Translations: [OTHER] Propensity to adverse reactions (disorder) 5 [facility] Other [place] [place] [facility] Medications Current Medications Medication Drug Class(es) [...] 5-500 MG TABS As needed HYDROCODONE-ACETAMIN OPHEN [id number] Aleta Castellanos RN Problems Active Problems Problem Classification Problem Date Documented Date Episodic/Chronic Abdominal hernia (1 source) Disorder of abdominal wall; Translations: [Ventral hernia without obstruction or gangrene] Episodic Cardiac dysrhythmias (4 sources) Ventricular premature beats; Translations: [Premature atrial contraction] Onset: 11-24-2013 11-24-2013 Chronic Diseases of white blood cells (19 sources) Leukocytosis; Translations: [Elevated white blood cell count, unspecified] Onset: 07-21-2011 07-21-2011 Chronic Disorders of lipid metabolism (2 sources) Hyperlipidemia; Translations: [Hyperlipidemia, unspecified] Onset: 09-02-2010 09-02-2010 Chronic Diverticulosis and diverticulitis (19 sources) Diverticulosis of colon; Translations: [Diverticulosis of large intestine without perforation or abscess without bleeding] Onset: 12-05-2006 04-18-2010 Chronic Heart valve disorders (8 sources) Tricuspid incompetence, non-rheumatic ; Translations: [Tricuspid valve regurgitation] Onset: 09-02-2010 06-16-2016 Chronic Other circulatory disease (19 sources) Raynaud's disease; Translations: [Raynaud's syndrome without gangrene] Onset: 09-14-2009 09-15-2011 Chronic Other nervous system disorders (3 sources) Abnormal gait; Translations: [Unspecified abnormalities of gait and mobility] Episodic Other nervous system disorders (1 source) Incoordination; Translations: [Other lack of coordination] Episodic Other screening for suspected conditions (not mental disorders or infectious disease) (2 sources) Patient encounter status; Translations: [Encounter for screening mammogram for malignant neoplasm of breast] Episodic Parkinson`s disease (20 sources) Parkinson's disease; [...] (2 sources) Long-term drug therapy; Translations: [Other detention (current) drug therapy] Onset: 09-02-2010 09-02-2010 Past or Other Problems Problem Classification Problem Date Documented Date Episodic/Chronic Cardiac dysrhythmias (2 sources) Palpitations; Translations: [Palpitations] Onset: 1 09-02-2010 Episodic Diseases of mouth; excluding dental (1 source) Other diseases of tongue; Translations: [Tongue biting] Onset: 3 Episodic Epilepsy; convulsions (1 source) Unspecified convulsions; Translations: [Convulsions, unspecified convulsion type (HCC)] Onset: 3 Episodic Heart valve disorders (2 sources) Heart [...] [Abnormal weight loss] Onset: 8 12-31-2017 Episodic Syncope (2 sources) Syncope and collapse; Translations: [Syncope and collapse] Onset: 1 09-02-2010 Episodic Results Test Name Value Interpretation Reference Range Facil ity Vital Signs Date Time Vital Sign Value Performing Clinician Facility 04-04-2023 13:20-0400 Body height 152.4 cm Selvin Lowe MD Work Phone: [facility] 04-04-2023 13:20-0400 Body weight 44 kg Selvin Lowe MD Work Phone: [facility] 04-04-2023 13:20-0400 SaO2% (BldA) [Mass fraction] 98 % Selvin Lowe MD Work Phone: [facility] 02-13-2023 11:24-0400 Body height 156 cm Bart Brooks DO Work Phone: [facility] 02-13-2023 11:24-040 Body temperature 97.5 [degF] Bart Brooks DO Work Phone: [facility] 02-13-2023 11:24-0400 Body weight 43.55 kg Bart Brooks DO Work Phone: [facility] 02-13-2023 11:24-0400 Diastolic blood pressure 81 mm[Hg] Bart Masci DO Work Phone: [facility] 02-13-2023 11:24-0400 Heart rate 89 /min Bart Masci DO Work Phone: [facility] 02-13-2023 11:24-0400 SaO2% (BldA) [Mass fraction] 97 % Bart Masci DO Work Phone: [facility] 02-13-2023 11:24-0400 Systolic blood pressure 111 mm[Hg] Bart Masci DO Work Phone: [facility] 08-15-2022 11:13-0500 Body height 156.2 cm Bart Masci DO Work Phone: [facility] 08-15-2022 11:13-0500 Body temperature 97 [degF] Bart Masci DO Work Phone: [facility] 08-15-2022 11:13-0500 Body weight 45.59 kg Bart Masci DO Work Phone: [facility] 08-15-2022 11:13-0500 Diastolic blood pressure 76 mm[Hg] Bart Masci DO Work Phone: [facility] 08-15-2022 11:13-0500 Heart rate 48 /min Bart Masci DO Work Phone: [facility] 08-15-2022 11:13-0500 Systolic blood pressure 120 mm[Hg] Bart Masci DO Work Phone: [facility] 07-05-2022 15:39-0500 Body height 156.8 cm Sridevi Ocasio MD Work Phone: [facility] 07-05-2022 15:39-0500 Body weight 46.27 kg Sridevi Ocasio MD Work Phone: [facility] 07-05-2022 15:39-0500 Diastolic blood pressure 68 mm[Hg] Sridevi Ocasio MD Work Phone: [facility] 07-05-2022 15:39-0500 Heart rate 73 /min Sridevi Ocasio MD Work Phone: [facility] 07-05-2022 15:39-0500 SaO2% (BldA) [Mass fraction] 95 % Sridevi Ocasio MD Work Phone: [facility] 07-05-2022 15:39-0500 Systolic blood pressure 138 mm[Hg] Sridevi Ocasio MD Work Phone: [facility] 02-14-2022 11:51-0400 Body height 156.8 cm Bart Masci DO Work Phone: [facility] 02-14-2022 11:51-0400 Body temperature 97 [degF] Bart Masci DO Work Phone: [facility] 02-14-2022 11:51-0400 Body weight 46.27 kg Bart Masci DO Work Phone: [facility] 02-14-2022 11:51-0400 Diastolic blood pressure 90 mm[Hg] Bart Masci DO Work Phone: [facility] 02-14-2022 11:51-0400 Heart rate 67 /min Bart Masci DO Work Phone: [facility] 02-14-2022 11:51-0400 Systolic blood pressure 147 mm[Hg] Bart Masci DO Work Phone: [facility] 09-19-2021 14:33-0400 Body height 158 cm Sridevi Ocasio MD Work Phone: [facility] 09-19-2021 14:33-0400 Body weight 48.53 kg Sridevi Ocasio MD Work Phone: [facility] 09-19-2021 14:33-0400 Diastolic blood pressure 70 mm[Hg] Sridevi Ocasio MD Work Phone: [facility] 09-19-2021 14:33-0400 Heart rate 86 /min Sridevi Ocasio MD Work Phone: [facility] 09-19-2021 14:33-0400 SaO2% (BldA) [Mass fraction] 97 % Sridevi Ocasio MD Work Phone: [facility] 09-19-2021 14:33-0400 Systolic blood pressure 142 mm[Hg] Sridevi Ocasio MD Work Phone: [facility] 05-27-2019 09:30-0500 Body temperature 97.81 [degF] Brandon Faye MD Work Phone: [facility] Work Phone: 05-27-2019 09:30-0500 Diastolic blood pressure 78 mm[Hg] Brandon Faye MD Work Phone: [facility] Work Phone: 05-27-2019 09:30-0500 Heart rate 68 /min Brandon Faye MD Work Phone: [facility] Work Phone: 05-27-2019 09:30-0500 Respiratory rate 15 /min Brandon Faye MD Work Phone: [facility] Work Phone: 05-27-2019 09:30-0500 SaO2% (BldA) [Mass fraction] 94 % Brandon Faye MD Work Phone: [facility] Work Phone: 05-27-2019 09:30-0500 Systolic blood pressure 123 mm[Hg] Brandon Faye MD Work Phone: [facility] Work Phone: 05-27-2019 06:56-0500 Body height 157.5 cm Brandon Faye MD Work Phone: [facility] Work Phone: 05-27-2019 06:56-0500 Body mass index (BMI) [Ratio] 19.66 kg/m2 Brandon Faye MD Work Phone: [facility] Work Phone: 05-27-2019 06:56-0500 Body weight 48.76 kg Brandon Faye MD Work Phone: [facility] Work Phone: 2019 13:58-0500 Height 157.5 cm [facility] [place] [facility] 13:56-0500 BMI (Body Mass Index) 19.74 kg/m2 Brandon [facility], [place] 2019 13:56-0500 Body Temperature 98.6 [degF] [facility] [place] [facility] 13:56-0500 Body weight 48.94 kg Brandon [facility] , [place] 2019 13:56-0500 BP Diastolic 95 mm[Hg] [facility] , [place] 2019 13:56-0500 BP Systolic 170 mm[Hg] [facility] , [place] 2019 13:56-0500 Pulse (Heart Rate) 59 /min [place], [place] 2019 13:56-0500 Pulse Oximetry 95 % [facility] , [place] 2019 13:56-0500 Respiratory Rate 16 /min [place], [place] 01-08-2017 13:29-0400 BMI (Body Mass Index) 20.19 [...] 13:29-0400 Weight 51.71 kg Amy Reagan RN [facility] Work Phone: 06-26-2016 13:50-0500 BSA (Body Surface Area) 1.52 m2 Amy Reaagn RN [facility] Work Phone: Encounters Encounter Date Encounter Type Care Provider Facility Start: 07-03-2023 End: 07-03-2023 ambulatory CHRIS CHI TAYE Facility:[facility] Start: 05-18-2023 Telephone encounter Selvin laird MD Work Phone: [facility] Procedures Date Procedure Procedure Detail Performing Clinician Start: 06-30-2022 Screening mammograph y bi 2-view breast inc cad Silva Hernandez MD Work Phone: Start: 2019 Basic metabolic pane l calcium total Yoana R Sweetser Work Phone: Start: 2019 Blood count complete automated Yoana R Oumou Work Phone: Start: 05-07-2017 End: 05-07-2017 Ecg routine ecg w/least 12 lds w/i&r Tiago Vigil MD Start: 01-08-2017 End: 01-08-2017 Follow Up Appt 1 year Bart Marquez Start: 01-08-2017 End: 01-08-2017 PFM Bart Olivarez MD Start: 06-26-2016 End: 06-28-2016 *BMP Gonzalez A Bernard BRICK BAKER-C Start: 06-26-2016 End: 06-28-2016 *CBC with Differential Gonzalez A Bernard BRICK BAKER- C Start: 06-26-2016 End: 12-26-2016 Follow Up Appt Other Gonzalez A Bernard BRICK BAKER-C Start: 06-26-2016 End: 06-28-2016 Magnesium [Mass/volume] in Serum or Plasma Gonzalez A Bernard BRICK BAKER-C Start: 04-13-2016 End: 12-26-2016 *Hepatic Function Panel [...] PA-C Work Phone: Start: 06-25-2015 End: 06-25-2015 PF Julissa Da Silva PA-C Work Phone: Start: [...] DTaP,Tdap,Td Vaccine (3 - Td or Tdap) [facility] Start: 08-15-2025 DIABETES SCREEN DIABETES SCREEN [facility] Start: 08-15-2025 Diabetes Screening Diabetes Screening [facility] Start: 02-14-2025 DIABETES SCREEN DIABETES SCREEN [facility] Start: 02-20-2023 COVID-19 VACCINE (6 - Moderna series) COVID-19 VACCINE (6 - Moderna series) [facility] Start: 02-16-2023 Covid-19 Vaccine (2022- season) Covid-19 Vaccine ( - 2022- season) [facility] Start: 02-16-2023 Influenza vaccination [facility] Start: 08-15-2022 End: 10-15-2022 CBC W Auto Differential panel - Blood CBC + DIFF Lab STAT 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) Expected: 08/15/2022, Expires: 10/15/2022 [facility] Work Phone: Immunizations Immunization Date Immunization Notes Care Provider Fa cili 04-06-2021 COVID-19 vaccine, fu ll dose (MODERNA) Sridevi Ocasio MD Work Phone: [facility] Work Phone: 02-03-2021 influenza, injectabl e, quadrivalent, contains preservative Sridevi Ocasio MD Work Phone: [facility] Work Phone: 08-13-2020 COVID-19 vaccine, fu ll dose (MODERNA) Sridevi Ocasio MD Work Phone: [facility] Work Phone: 07-16-2020 COVID-19 vaccine, fu ll dose (MODERNA) Sridevi Ocasio MD Work Phone: [facility] Work Phone: 02-10-2020 influenza, injectabl e, quadrivalent, contains preservative Sridevi Ocasio MD Work Phone: [facility] Work Phone: 08-06-2019 zoster vaccine recombinant Sridevi Ocasio MD Work Phone: [facility] Work Phone: 04-08-2019 zoster vaccine recombinant Sridevi Ocasio MD Work Phone: [facility] Work Phone: 02-20-2019 pneumococcal conjuga te vaccine, 13 valent Sridevi Ocasio MD Work Phone: [facility] Work Phone: 03-18-2012 influenza virus vacc ine, unspecified formulation Sridevi Ocasio MD Work Phone: [facility] 08-16-2011 haemophilus influenz ae type b vaccine, HbOC conjugate Sridevi Ocasio MD Work Phone: [facility] Work Phone: 08-03-2011 Meningococcal, MCV4, unspecified conjugate formulation(groups A, C, Y and W-135) Sridevi Ocasio MD Work Phone: [facility] Work Phone: 08-03-2011 pneumococcal polysaccharide vaccine, 23 valent Sridevi Ocasio MD Work Phone: [facility] Work Phone: 04-11-2010 pneumococcal polysaccharide vaccine, 23 valent Bart Brooks DO Work Phone: [facility] Work Phone: 06-02-2009 novel influenza-H1N1 -09, preservative-free, injectable Sridevi Ocasio MD Work Phone: [facility] Work Phone: Payers Date Payer Category Payer Medicare AETNA MEDICARE A ETNA MEDICARE PPO [id number] 2021-Present [phone] [address] [place] [address] PPO [id number] 2019 Medicare AETNA MEDICARE A ETNA MEDICARE-ADVANTAGE PPO [id number] 2019-Present [address] [place] [address] Medicare xxxxxxxx [id number] 2009 Medicare [id number] 2009 Medicare [id number] Social History Date Type Detail Facility Start: 2019 End: 07-05-2022 Tobacco smoking status NHIS Never smoker [facility] Start: 2019 End: 05-27-2019 [facility]: [facility] History SDOH Alcohol Frequency 1 [place], [place] Start: 1935 Sex Assigned At Not on file M [place], [place] Start: 09-19-2021 End: 04-04-2023 Alcohol intake Current non-drinker of alcohol (finding) [facility] Start: 09-09-2021 End: 02-14-2022 Exposure to SARS-CoV-2 (event) Not sure [facility] Start: 07-05-2022 Tobacco use and exposure Smoke less tobacco non-user [facility] Start: 02-13-2023 End: 04-04-2023 History of Social function [facility] Start: 02-13-2023 End: 04-04-2023 Tobacco use panel [facility] Adult Depression Screening Assessment 0 [facility] Functional Status Date Assessment Result Facility 10-07-2021 Functional Status OBJECTIVE Posture: WNL Gait: amb with large step length and arm swing, no AD Transfers: able to perform sit to stand with no UE support Coordination: hand gestures, toe tapping, arm rolls - symmetyrical, no abnormalties AROM: WNL PROM: WNL MMT: grossly 4+/5 except hip adductors 4/5 and bilat hamstrings 4/5 Processor Inspector strength L: 45 lbs - pt is left hand dominant Processor Inspector strength R: 30 lb TUG- 8 seconds Gan out of 56 Activity-Specific Balance Confidence Scale (ABC): 87% [facility] Clinical Notes 05-27-2019 to 07-03-2023 Telephone Encounter - Ayanna Garza RN - 05/22/2023 1:58 PM ESTTelephone Encounter - Selvin Lowe MD - 05/22/2023 1:34 PM ESTTelephone Encounter - Ayanna Garza RN - 05/21/2023 2:32 PM EST Note Date & Type Note Facility 07-03-2023 Note HNO ID: [id number] Author: SILVA HERNANDEZ MD Service: ? Author Type: Physician Type: Progress Notes Filed: 07/03/2023 15:02 Note Text: Addis is a 88 year old who presents for an annual gynecologic exam with no new c/o. denies vaginal bleeding or irritation Postmenopausal: yes HRT use: No. 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 LAPS SURG CHOLECYSTECTOMY W/CHOLANGIOGRAPHY 01/16/07 PAST SURGICAL HISTORY OF carotid tumor removed FAMILY HISTORY Problem Relation Age of Onset Osteoporosis Mother Arthritis Mother Arthritis Father Heart Son SOCIAL HISTORY Social History Tobacco Use Smoking status: Never Smokeless tobacco: Never Vaping Use Vaping Use: Never used Substance Use Topics Alcohol use: No Drug use: No REVIEW OF SYSTEMS Abdomen: no changes Bladder: no changes Breast: No breast lumps, nipple d/c, overlying skin changes, redness or skin retraction Allergies and current medication updated:Yes EXAM: BP 126/78 Wt 93 lb (42.2kg) GENERAL: pleasant, female in no apparent distress DERMATOLOGY: Normal, non-icteric, non-hirsute, and some actinic keratoses on her trunk. BREAST: soft, non-tender, symmetric, no dominant mass, normal nipple-areolar complex, no lymphadenopathy, and no nipple discharge CHEST: Normal inspiratory effort ABDOMEN: soft, non-tender, and no masses PELVIC: Deferred at patient request BIMANUAL: Deferred at patient request RECTOVAGINAL: Deferred at patient request ASSESSMENT/PLAN: 1) Health maintenance: Pap/HPV screening no longer needed We reviewed risks and benefits of the option of continuing mammograms versus discontinuing them. After discussion patient desires to discontinue mammograms. 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 Patient states understanding and is in agreement with this plan Silva Hernandez MD [facility] 05-22-2023 Miscellaneous Notes Spoke with patient, message [...] the PD is working on her - [phone]. 04/04/23 FUV w/Dr. Lowe 10/08/23 FUV w/Gerry Lowe documented in this encounter [facility] 04-04-2023 Note HNO ID: [id number] Author: Selvin Lowe MD Service: ? Author Type: Physician Type: Progress Notes Filed: 04/04/2023 4:56 PM Note Text: [facility] - FOLLOW UP EVALUATION Chris Kothari MD [address] [address] I had the pleasure of seeing Ms. [...] when walking sometimes. Plans on going to [facility] for PT. 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 [facility] 04-04-2023 History of Present illness Narrative [facility] - FOLLOW UP EVALUATION Chris Kothari MD [address] [facility] [address] [facility] [address] I had the pleasure of seeing Ms. [...] when walking sometimes. Plans on going to [facility] for PT. 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 Rapid alternating movement normal. Ogne-rw-svjl normal.Left: Ermjqu-ty-jwdc normal. Rapid alternating movement normal. Ramn-fg-dzqj normal. Gait Generally stable gait except for [...] please feel free to send me a [employer] message or contact the office - PT [...] Selvin Lowe MD documented in this encounter [facility] 04-04-2023 Instructions Selvin Lowe MD - 04/04/2023 [...] please feel free to send me a YOHO message or contact the office Movement Disorders Medication Schedule: Medications 8a 1p 6p Sinemet 25/100 2 2 2 Return in about 6 months (around 10/04/2023). If there are any concerns before your next visit, please call or you can send a message through [employer]. You can also now schedule and select appointments through [employer]. Selvin Lowe MD Fatigue and Parkinson s [...] researchers studying fatigue. Flaco Valenzuela, Ph.D. at [facility] is studying Multi-modal Neuroimaging of Fatigue in [...] with PD. Bishnu Christensen M.D. at [facility] is studying Remotely Supervised Transcranial Direct Current [...] For more information and resources see [email or web address] [facility] is a Center of Excellence for the [...] increase blood pressure. documented in this encounter [facility] 03-15-2023 Note HNO ID: [id number] Author: Sadaf Brooke RT(R) Service: ? Author Type: Technologist Type: Progress Notes Filed: 03/15/2023 11:42 AM Note Text: Radiology Service Progress Note PATIENT NAME: Addis Haynes DATE OF SERVICE: March 15, 2023 [...] RT Aroldo(R) March 15, 2023 11:41 AM [facility] 02-15-2023 Note HNO ID: [id number] Author: Noris Willard PT Service: ? Author Type: Physical Therapist Type: Progress Notes Filed: 02/15/2023 9:59 AM Note Text: 02/15/2023 [facility] PHYSICAL THERAPY DISCONTINUANCE [...] scheduled additional follow-up appointments. Noris Willard, PT [facility] 02-13-2023 Note HNO ID: [id number] Author: Bart Brooks, DO Service: ? Author Type: Physician Type: Progress Notes Filed: 02/13/2023 12:20 PM Note Text: Diagnosis: 1) Lymphoproliferative disorder. HPI: The patient is a 87 yo female whom I saw in consultation at [facility] in 2006 for pancytopenia following an admission [...] definite evidence of malignancy. PET done at [facility] 07/31/11: The PET scan revealed increased glucose [...] Denies hot flash (more content not included)... [facility] 02-13-2023 History of Present illness Narrative Diagnosis: 1) Lymphoproliferative disorder. HPI: The patient is a 87 yo female whom I saw in consultation at [facility] in 2006 for pancytopenia following an admission [...] definite evidence of malignancy. PET done at [facility] 07/31/11: The PET scan revealed increased glucose [...] No jaundice or rash. No petechiae. 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 No focal motor [...] k/uL 8.64 (H) 6.98 (H) 6.43 (H) [place]% % 6 7.0 7.0 6.0 Abs [place] <0.87 k/uL 0.75 1.08 (H) 0.96 (H) [...] Few (A) Tear Drop Few Few Love Wakeman Bodies Occasional Occasional DTYPE Manual Manual Realym% [...] which included preparing to see the patient, [id number] patient care, completing clinical documentation, obtaining and/or reviewing separately obtained history, performing a medically appropriate examination, counseling and educating the patient/family/caregiver, communicating with other HCPs (not separately reported), and communicating results to the patient/family/caregiver. Bart Brooks DO documented in this encounter [facility] 11-20-2022 Miscellaneous Notes Patient called asking for EEG order to be faxed to [facility] diagnostic scheduling. Fax number [phone]. Order, demographics, and coverage faxed as requested. Electronically signed by [facility] Darryl Mcdonough at 11/20/2022 3:30 PM EDT documented in this encounter [facility] 10-03-2022 Note HNO ID: [id number] Author: Selvin Lowe MD Service: ? Author Type: Physician Type: Progress Notes Filed: 10/03/2022 8:12 PM Note Text: [facility] - FOLLOW UP EVALUATION No referring provider defined for this encounter. Chris Kothari MD [address] [address] I had the pleasure of seeing Ms. [...] balance. Goes 3 times per week to [facility]. And 2 days at [employer]. Has had 3 falls within the past [...] Date: Last OT Date: Date: Exercises Regularly: ALLERGIES Allergen Reactions Environmental [...] Neurological Exam Men (more content not included)... [facility] 08-15-2022 Note HNO ID: [id number] Author: Bart Brooks, DO Service: ? Author Type: Physician Type: Progress Notes Filed: 08/15/2022 11:34 AM Note Text: Diagnosis: 1) Lymphoproliferative disorder. HPI: The patient is a 86 yo female whom I saw in consultation at [facility] in 2006 for pancytopenia following an admission [...] definite evidence of malignancy. PET done at [facility] 07/31/11: The PET scan revealed increased glucose [...] and polydipsia. Denies (more content not included)... [facility] 08-15-2022 History of Present illness Narrative Diagnosis: 1) Lymphoproliferative disorder. HPI: The patient is a 86 yo female whom I saw in consultation at [facility] in 2006 for pancytopenia following an admission [...] definite evidence of malignancy. PET done at [facility] 07/31/11: The PET scan revealed increased glucose [...] No jaundice or rash. No petechiae. 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 No focal motor [...] (H) 6.05 (H) 6.84 (H) 6.51 (H) C[place]% % 6.0 11.0 9.0 6.0 Abs [place] <0.87 k/uL 0.97 (H) 1.51 (H) 1.38 [...] Target Cells Few Few Few Few Love Wakeman Bodies Occasional Occasional DTYPE Manual ANC(includeSEG+BAND) k/uL [...] Bart Brooks DO documented in this encounter [facility] 07-18-2022 Note HNO ID: [id number] Author: Noris Willard PT Service: ? Author [...] PHYSICAL THERAPY EVALUATION PLAN OF CARE: Assessment: Addis Haynes presents with diagnosis of Parkinsons disease [...] of Care: created on 07/18/22 through 09/16/22 Price in home exercise program. Patient will demonstrate [...] Planned: 8 Planned Treatment Interventions: Therapeutic exercise (12751), Neuromuscular re-education (61622), Therapeutic activities (75187), Patient/Family/Caregiver Education, Gait Training (26982) PLAN FOR NEXT VISIT: pt would like to transfer to a clinic closer to home if possible. otherwise address hip strength/flexibility, balance AND gait if pt returns here (PT will assist pt with transfer) Patient demonstrates good understanding of plan of care and treatment. The above goals and plan of care were discussed and agreed upon by patient/family. SUBJECTIVE: Addis Hyanes is a 87 year old female seen [...] Retired Recreation / Current Exercise: exercises at [employer] in [place] 3 days/week AND goes to Parkinsons group exercise class 2 days/week at [facility] Home Environment Patient Lives With: Self/Alone Home [...] Alignment Posture: Forw (more content not included)... [facility] 07-18-2022 History of Present illness Narrative Episode Visit Count: 1 Therapist That Will Accept/Oversee The Plan Of Care: Ángel Willard Start of Care Date: 07/18/22 Onset Date: 07/18/21 Plan of Care Certification Date: 07/18/22 Next Certification Due Date: 09/16/22 Patient Identified by Name and Date of : Yes [facility]TS [facility]ERAPY PHYSICAL THERAPY EVALUATION PLAN OF CARE: Assessment: Addis Haynes presents with diagnosis of Parkinsons disease [...] of Care: created on 07/18/22 through 09/16/22 Price in home exercise program. Patient will demonstrate [...] Planned: 8 Planned Treatment Interventions: Therapeutic exercise (78880), Neuromuscular re-education (34765), Therapeutic activities (07361), Patient/Family/Caregiver Education, Gait Training (11436) PLAN FOR NEXT VISIT: pt would like to transfer to a clinic closer to home if possible. otherwise address hip strength/flexibility, balance & gait if pt returns here (PT will assist pt with transfer) Patient demonstrates good understanding of plan of care and treatment. The above goals and plan of care were discussed and agreed upon by patient/family. SUBJECTIVE: Addis Haynes is a 87 year old female [...] Retired Recreation / Current Exercise: exercises at [employer] in [place] 3 days/week & goes to Parkinsons group exercise class 2 days/week at [place] in [place] Home Environment Patient Lives With: Self/Alone Home [...] Noris Willard PT documented in this encounter [facility] 07-07-2022 Miscellaneous Notes Pt returned the call [...] full body jerks . Message left for Addis to contact office to discuss symptom of [...] typographical errors. NI PHONE NAME OF CALLER: Addis RELATIONSHIP TO PATIENT: self PATIENT ID'D BY [...] how best to manage this. CALLBACK #: [phone] OK TO LEAVE MESSAGE: yes LAST FUV: yesterday with II documented in this encounter [facility] 07-06-2022 Miscellaneous Notes Clarification of C/L 25-100 mg dose was given to pharmacist per Dr. Ocasio's OV notes. 2 tablets by mouth TID at 8a, 1p & 6p. [facility] pharmacy called asking for clarification of directions for Sinemet sent yesterday. Si tablet 3 times a day [phone] Electronically signed by [facility] Darryl Mcdonough at 07/06/2022 9:32 AM EST documented in this encounter [facility] 07-05-2022 Note HNO ID: [id number] Author: Sridevi Ocasio MD Service: ? Author Type: Physician Type: Progress Notes Filed: 07/05/2022 8:00 PM Note Text: [facility] - FOLLOW UP EVALUATION Chris Kothari MD [address] [address] I had the pleasure of seeing Ms. [...] or around: 01/02/23 Level of service : 76669 (40-54 min). Time spent 45 min on the day of service, which included preparing to see the patient, [id number]-[id number] patient care, completing clinical documentation, obtaining and/or reviewing separately obtained history, counseling and educating the patient/family/caregiver, ordering medications, tests, or procedures, and care coordination (not separately reported). Thank you for allowing me to be part of the clinical care of this patient! I look forward to continued participation in the patient?s care wit (more content not included)... [facility] 07-05-2022 Instructions Sridevi Ocasio MD - 07/05/2022 4:30 PM EST Please, increase carbidopa/levodopa 25/100 to 2 tablets at 8 AM, 1 PM and 6 PM Please, physical therapy reassessment Please, follow-up in 6 months documented in this encounter [facility] 07-05-2022 History of Present illness Narrative [facility] - FOLLOW UP EVALUATION Chris Kothari MD [address] [place] [address] [facility] [address] I had the pleasure of seeing Ms. [...] or around: 01/02/23 Level of service : 11506 (40-54 min). Time spent 45 min on the day of service, which included preparing to see the patient, [id number] patient care, completing clinical documentation, obtaining and/or [...] at 4:24 PM documented in this encounter [facility] 06-30-2022 History of Present illness Narrative Radiology Service Progress Note PATIENT NAME: Addis Haynes DATE OF SERVICE: June 30, 2022 [...] RT Rachel(R) June 30, 2022 1:25 PM documented in this encounter [facility] 04-04-2022 Miscellaneous Notes Order pending. Myrna Lees RN Patient is scheduled for mammogram screening on 06/30/2022. Requesting updated order, current order expires 05/02/2022. Thank you. documented in this encounter [facility] 03-08-2022 Miscellaneous Notes Patient called, went over notes from Dr. Brooks with her in regards to her CT results. Patient will reach out to Dr. Kothari. Left message to return call to clinical. Faxed note and CT result to Dr Kothari. .sc Can let her know that the CT [...] Bart Brooks DO documented in this encounter [facility] 02-14-2022 Miscellaneous Notes Spoke with pt. Informed [...] Bart Brooks DO documented in this encounter [facility] 02-14-2022 History of Present illness Narrative Diagnosis: 1) Lymphoproliferative disorder. HPI: The patient is a 86 yo female whom I saw in consultation at [facility] in 2006 for pancytopenia following an admission [...] definite evidence of malignancy. PET done at [facility] 07/31/11: The PET scan revealed increased glucose [...] Interim history: She continues to participate in [employer] 3 times a week and [place] the [...] No jaundice or rash. No petechiae. 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 No focal motor [...] (H) 8.64 (H) 6.05 (H) 6.84 (H) Caddo% % 6 6.0 7.0 11.0 9.0 Abs [place] <0.87 k/uL 0.75 0.97 (H) 1.08 (H) 1.51 (H) 1.38 (H) Eosin% % 6 4.0 2.0 3.0 3.0 Abs Eosin <0.46 k/uL 0.75 (H) 0.64 (H) 0.31 0.41 0.44 Baso% % 1 2.0 2.0 0.0 1.0 Abs Baso <0.11 k/uL 0.12 (H) 0.32 (H) 0.31 (H) 0.00 0.43 (H) ANC(includeSEG+BAND) k/uL 5.96 5.09 5.78 Acanthocyte Few Few Few Few Love Wakeman Bodies Occasional Ovalocytes Few Few Few Few Few Target Cells Few Few Few Few Platelet Estimate Platelet estimate adequate Platelet estimate adequate Platelet estimate adequate Platelet estimate adequate Adequate Diff Type Manual Diff Manual Diff Manual Diff Tear Drop Few Abs Lym 1.00 - 4.00 K/uL 5.99 (H) Anisocytosis Present RBC Fragments None Seen Few (A) WBC, [place] 3.70 - 11.00 k/uL 13.90 (H) 11.69 (H) 14.70 (H) RBC, Chitra 3.90 - 5.20 m/uL 4.07 4.20 4.11 Hemoglobin, [place] 11.5 - 15.5 g/dL 12.3 12.7 12.5 Hematocrit, [place] 36.0 - 46.0 % 38.2 38.0 37.6 MCV, [place] 80.0 - 100.0 fL 93.9 90.5 91.5 MCH, [place]itra 26.0 - 34.0 pg 30.2 30.2 30.4 MCHC, [place] 30.5 - 36.0 g/dL 32.2 33.4 33.2 RDW, [place] 11.5 - 15.0 % 13.5 14.2 14.7 Platelet Cnt, Chitra 150 - 400 k/uL 297 293 317 MPV, [place] 9.0 - 12.7 fL 10.7 10.5 9.6 Neut%, Chitra % 50 41.4 48 Lymp%, Chitra % 40 41.7 37 Caddo%, Chitra % 5 14.0 12 Eos%, Chitra % 2 1.8 1 Baso%, [place] % 3 1.1 2 Abs Neut, [place] 1.45 - 7.50 k/uL 6.95 4.83 7.06 Abs Lymp, [place] 1.00 - 4.00 k/uL 5.56 (H) 4.88 (H) 5.44 (H) Abs Caddo, [place] <0.87 k/uL 0.70 1.64 (H) 1.76 (H) [...] Bart Brooks DO documented in this encounter [facility] 12-05-2021 Miscellaneous Notes Detailed message left on patient's identified VM. Patient to contact office for any questions. Daja Lambert LPN Blood counts are not much different. Hgb and platelets remain normal. Okay to follow up as scheduled. Bart Brooks DO Labs printed and placed in Dr. Brooks's mailbox for review. Daja Lambert LPN Pt stated she had labs done at [facility] 11/21/[address] Kothari. He noted that she had elevated white blook count and may want to be seen sooner by Dr Brooks. Please advise pt. She is scheduled in January to see him. documented in this encounter [facility] 09-19-2021 Instructions Sridevi Ocasio MD - 09/19/2021 3:15 PM EDT Please, increase carbidopa/levodopa 25/100 to 1.5 tablets 3 times a day at 8 AM, 1 PM and 6 PM Please, continue taking mirtazapine 7.5 mg at bedtime Please, think about re-visiting PD-specific physical therapy locally Please, follow-up in six months documented in this encounter [facility] 09-19-2021 History of Present illness Narrative [facility] - FOLLOW UP EVALUATION Chris Kothari MD [address] [facility] [address] [facility] [address] I had the pleasure of seeing Ms. [...] PROMIS-10 Office Visit from 09/19/2021 in [facility] Office Visit from 06/02/2019 in [facility] T Score 50.8 Global [...] Parkinson's Medication Schedule: Level of service : 15382 (40-54 min). Time spent 45 min on the day of service, which included preparing to see the patient, [id number] patient care, completing clinical documentation, obtaining and/or [...] Sridevi Ocasio MD documented in this encounter [facility] 05-27-2019 History of Present illness Narrative Pt sitting up and tolerating po well PATIENT RECEIVED FROM OR VIA CART. SPONT RESP. 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 PLACED ON MONITOR. MONITOR ALARMS ON IN PACU. RT arm elevated and ice pack applied Timeout performed prior to regional block procedure. Dr Kenyon in attendance. 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 Hernia of abdominal wall Ventral hernia, unspecified, without mention of obstruction or gangrene [facility] Diagnosis Encounter for screening mammogram for malignant neoplasm of breast- Primary Other screening mammogram [facility] Diagnosis Parkinson's disease (HCC)- Primary Paralysis agitans Abnormality of gait 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 [facility] 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 [facility] Diagnosis 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 Parkinson's disease (HCC) Paralysis agitans Abnormality of gait 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 documented in this encounter [facility] note* 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 [facility] 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 [facility] Diagnosis Parkinson's disease without dyskinesia or fluctuating manifestations- Primary documented in this encounter [facility] note* Diagnosis Encounter for screening mammogram for malignant neoplasm of breast Other screening mammogram [facility] Instructions* Brandon Faye MD - 05/27/2019 OK to move fingers and thumb within confined of splint Ice and elevate for pain control OK to take tylenol/ibuprofen for pain relief Keep bandage on until first post operative appointment [facility] Work Phone: Hospital Discharge instructions No data available for this section [facility] Progress note No data available for this section [facility] Reason for referral (narrative)* Diagnostic Procedure Only (Routine) - Authorized Specialty Diagnoses / Procedures Referred By Contac t Referred To Contact [facility] Diagnoses Encounter for screening mammogram for malignant neoplasm of breast Procedures GLEN SCREENING SCREENING MAMMOGRAPHY BI 2-VIEW BREAST INC CAD Silva Hernandez MD [address] [place] [address] [facility] [address] [place] [phone] Referral ID Status Reason Start Date Expiration Date Visits Requested Visits Authorized [id number] Authorized Auto-Generat ed Referral 2 05/04/2023 1 1 [facility] for referral (narrative)* Diagnostic Procedure Only (Routine) - Closed Specialty Diagnoses / Procedures Referred By Aron ramos Referred To Contact [facility] Diagnoses Encounter for screening mammogram for malignant neoplasm of breast Procedures GLEN SCREENING SCREENING MAMMOGRAPHY BI 2-VIEW BREAST INC Silva Camacho MD [address] [place] [address] [facility] [address] [place] [address] Referral ID Status Reason Start Date Expiration Date V isits Requested Visits Authorized [id number] Closed Auto-Generate d Referral 04/04/2022 05/04/2023 1 1 [facility] for visit Narrative* Diagnostic Procedure Only (Routine) - Closed Specialty Diagnoses / Procedures Referred By Aron ramos Referred To Contact [facility] Diagnoses Encounter for screening mammogram for malignant neoplasm of breast Procedures GLEN SCREENING SCREENING MAMMOGRAPHY BI 2-VIEW BREAST INC Sliva Camacho MD [address] [place] [address] [facility] [address] [place] [address] Referral ID Status Reason Start Date Expiration Date V isits Requested Visits Authorized [id number] Closed Auto-Generate d Referral 04/04/2022 05/04/2023 1 1 [facility] Discharge Instructions * Instructions* Fariba Ponce RN [...] please call your surgeon. Please bring your [facility] [employer] Surgical Information folder on the day of surgery. Please bring a photo ID and insurance information Marcelle: ? Enter through Door number [phone] ? Registration department is located here ? Patient will be escorted to [facility] ? aMrcelle does not open before 6am documented in this encounter History of Present Illness * Ramses Aguiar - 2019 1:30 PM EST Labs obtained on first attempt with 22 gauge needle at R ACF site, patient tolerated well, site benign. 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 Advance Directives and Living Will Power of Packing And Shipping Clerk Latest Code Status on File Code Status [...] HIGH MDM 60-74 MINUTES Sridevi Ocasio MD [address] [facility] [place] [address] Referral ID Status Reason Start Date Expiration Date Visits Requested Visits Authorized [id number] Pending Review PCP Requested Referral 07/05/2022 10/03/2022 1 1 Specialty Diagnoses / Procedures Referred By Contact Referred To Contact [facility] Diagnoses Parkinson's disease (HCC) Abnormality of 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 DATE CREATED AUTHOR AUTHOR'S ORGANIZ ATION 03/23/2023 [facility] DATE CREATED AUTHOR AUTHOR'S ORGANIZ ATION 07/04/2023 [facility] Source Comments (unrecognize d section and content) In the event this informatio n is protected by the Federal Confidentiality of Alcohol and Drug Abuse Patient Records regulations: The Federal rules restrict any use of the information to criminally investigate or prosecute any alcohol or drug abuse patient.[facility] the event this information is protected by the Federal Confidentiality of Alcohol and Drug Abuse Patient Records regulations: The Federal rules restrict any use of the information to criminally investigate or prosecute any alcohol or drug abuse patient.[facility] the event this information is protected by the Federal Confidentiality of Alcohol and Drug Abuse Patient Records regulations: The Federal rules restrict any use of the information to criminally investigate or prosecute any alcohol or drug abuse patient.[facility] the event this information is protected by the Federal Confidentiality of Alcohol and Drug Abuse Patient Records regulations: The Federal rules restrict any use of the information to criminally investigate or prosecute any alcohol or drug abuse patient.[facility] the event this information is protected by the Federal Confidentiality of Alcohol and Drug Abuse Patient Records regulations: The Federal rules restrict any use of the information to criminally investigate or prosecute any alcohol or drug abuse patient.[facility] [facility] the event this information is protected by the Federal Confidentiality of Alcohol and Drug Abuse Patient Records regulations: The Federal rules restrict any use of the information to criminally investigate or prosecute any alcohol or drug abuse patient.[facility] the event this information is protected by the Federal Confidentiality of Alcohol and Drug Abuse Patient Records regulations: The Federal rules restrict any use of the information to criminally investigate or prosecute any alcohol or drug abuse patient.[facility] the event this information is protected by the Federal Confidentiality of Alcohol and Drug Abuse Patient Records regulations: The Federal rules restrict any use of the information to criminally investigate or prosecute any alcohol or drug abuse patient.[facility] the event this information is protected by the Federal Confidentiality of Alcohol and Drug Abuse Patient Records regulations: The Federal rules restrict any use of the information to criminally investigate or prosecute any alcohol or drug abuse patient.[facility] the event this information is protected by the Federal Confidentiality of Alcohol and Drug Abuse Patient Records regulations: The Federal rules restrict any use of the information to criminally investigate or prosecute any alcohol or drug abuse patient.[facility] the event this information is protected by the Federal Confidentiality of Alcohol and Drug Abuse Patient Records regulations: The Federal rules restrict any use of the information to criminally investigate or prosecute any alcohol or drug abuse patient.[facility]In the event this information is protected by the Federal Confidentiality of Alcohol and Drug Abuse Patient Records regulations: The Federal rules restrict any use of the information to criminally investigate or prosecute any alcohol or drug abuse patient.[facility]In the event this information is protected by the Federal Confidentiality of Alcohol and Drug Abuse Patient Records regulations: The Federal rules restrict any use of the information to criminally investigate or prosecute any alcohol or drug abuse patient.[facility] the event this information is protected by the Federal Confidentiality of Alcohol and Drug Abuse Patient Records regulations: The Federal rules restrict any use of the information to criminally investigate or prosecute any alcohol or drug abuse patient.[facility]In the event this information is protected by the Federal Confidentiality of Alcohol and Drug Abuse Patient Records regulations: The Federal rules restrict any use of the information to criminally investigate or prosecute any alcohol or drug abuse patient.[facility]In the event this information is protected by the Federal Confidentiality of Alcohol and Drug Abuse Patient Records regulations: The Federal rules restrict any use of the information to criminally investigate or prosecute any alcohol or drug abuse patient.[facility]In the event this information is protected by the Federal Confidentiality of Alcohol and Drug Abuse Patient Records regulations: The Federal rules restrict any use of the information to criminally investigate or prosecute any alcohol or drug abuse patient.[facility]In the event this information is protected by the Federal Confidentiality of Alcohol and Drug Abuse Patient Records regulations: The Federal rules restrict any use of the information to criminally investigate or prosecute any alcohol or drug abuse patient.[facility]In the event this information is protected by the Federal Confidentiality of Alcohol and Drug Abuse Patient Records regulations: The Federal rules restrict any use of the information to criminally investigate or prosecute any alcohol or drug abuse patient.[facility] Reason for Visit (unrecogniz ed section and [...] HIGH COMPLEX 45 MINS Sridevi Ocasio MD [address] [place] [address] Noris Willard, PT [address] [place] [address] Referral ID Status Reason Start Date Expiration Date V isits Requested Visits Authorized [id number] Authorized 07/05/2022 07/05/2023 1 99 Reason Comments Established Patient Reason Comments Patient Request Reason Comments Follow Up Specialty Diagnoses / Procedures Referred By Contac t Referred To Contact Diagnoses Tongue biting Procedures PROVIDER ORDERED FOLLOW UP Selvin Lowe MD [address] [facility] [address] [place] [address] Referral ID Status Reason Start Date Expiration Date V isits Requested Visits Authorized [id number] Closed PCP Requested Referral 10/03/2022 01/01/2023 1 1 Reason Comments Patient Question Care Teams (unrecognized sec tion and content) 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 Relationship Specialty Start Date End Date Taye, Chris Chi PCP - General Gerontology 11/23/14 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 Relationship Specialty Start Date End Date Taye, Chris Chi PCP - General Gerontology 11/23/14 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 Relationship Specialty Start Date End Date Taye, Chris Chi PCP - General Gerontology 11/23/14 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 Relationship Specialty Start Date End Date Taye, Chris Chi PCP - General Gerontology 11/23/14 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 Relationship Specialty Start Date End Date Taye, Chris Chi PCP - General Gerontology 11/23/14 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 Relationship Specialty Start Date End Date Taye, Chris Chi PCP - General Gerontology 11/23/14 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 Relationship Specialty Start Date End Date Taye, Chris Chi PCP - General Gerontology 11/23/14 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 Relationship Specialty Start Date End Date Taye, Chris Chi PCP - General Gerontology 11/23/14 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 Relationship Specialty Start Date End Date Taye, Chris Chi PCP - General Gerontology 11/23/14 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 [facility]. provides no warranty or guarantee of the accuracy or completeness of information in this document.
[2023-07-28 10:29] LABS: Absolute Lymphocyte Count 5.67 X10^3/uL (0.83-4.51); Absolute Neutrophil Count 9.6 X10^3/uL (2.0-7.7); Basophil# 0.32 X10^3/uL; Basophil% 1.9 % (0-1); Eosinophil# 0.06 X10^3/uL; Eosinophils% 0.4 % (0-5); Hematocrit 37.4 % (37-47); Hemoglobin 12.4 g/dL (12.0-15.0); Lymphocyte # 5.67 X10^3/ul (0.83-4.51); Lymphocyte % 33.4 % (19-41); Mean Corp Hgb Conc 33.2 g/dL (32-36); Mean Corpuscular Hgb 30.5 pg (27.0-32.0); Mean Corpuscular Volume 91.9 fL (81-99); Mean Platelet Vol. 10.3 fl (6.2-12.0); Monocyte# 1.21 X10^3/uL; Monocyte% 7.1 % (0-10); NRBC Flagged by Analyzer 0 % (0-5); Neutrophil # 9.64 X10^3/uL (2.7-7.7); Neutrophil % 56.7 % (47-70); POSITIVE DIFFERENTIAL YES; POSITIVE MORPHOLOGY YES; Platelet Count 402 K/mm3 (150-450); RBC Distribution Width CV 13.4 % (11.6-14.6); RBC Distribution Width SD 45.3 fl (35.1-43.9); Red Blood Count 4.07 M/mm3 (4.2-5.4)
[2023-07-28 10:37] LABS: ALB/GLOB Ratio 0.9 RATIO (0.9-2.4); AST(SGOT) 28 U/L (15-37); Alanine Aminotransfer ALT/SGPT 17 U/L (13-56); Albumin, Serum 3.5 g/dL (3.2-5.0); Alkaline Phosphatase 148 U/L (45-117); Anion Gap 4 (5-15); BUN 27 mg/dL (7-18); BUN/Creat Ratio 22.7 RATIO (10-20); Calcium,Total 9.6 mg/dL (8.5-10.1); Chloride 103 mmol/L (98-107); Creatinine, Serum 1.19 mg/dL (0.55-1.02); EST Glomerular Filtration Rate 46 mL/min (>60); Est Glom Filt Rate - Afr Amer 55 mL/min (>60); Estimated Creatinine Clearance 23.66 ml/min; Globulin 3.7 g/dL (2.2-4.2); Glucose 104 mg/dL (74-106); Potassium 4.2 mmol/L (3.5-5.1); Protein, Total 7.2 g/dL (6.4-8.2); Sodium Level 137 mmol/L (136-145)
[2023-07-28 10:43] LABS: Differential Indicated SCAN CRITERIA MET
--- NOTE | 2023-07-28 10:49 | RAD_ITS ---
HISTORY: fall. TECHNIQUE: XR Wrist Min 3 Views. COMPARISON: Right hand 05/03/2023. FINDINGS: BONES : No acute fracture identified. Generalized osteopenia. JOINTS: No dislocation. Moderate degenerative change. SOFT TISSUES: Soft tissue swelling. RAD/Wrist min 3 Views IMPRESSION: No acute fracture or dislocation identified in the right wrist. Electronically Signed: Ree Albright MD at 11:06 EST ,
[2023-07-28 11:26] LABS: Differential Comment SCANNED; Reactive Lymphocyte 2+
[2023-07-28] MEDS: Lidocaine 1% (20 ml mdv) 20 ML Vial 10 ML INFILT (13:46)
[2023-07-28] MEDS: 0.9% Normal Saline (1000mL) 1,000 ML 999 ML IV (13:46)
[2023-07-28 13:48] VITALS: BP 153/106; PULSE 81; RESP 16; O2SAT 96
[2023-07-28 14:22] LABS: Bacteria 0 SEEN /hpf (None Seen); Mucous, Urine 0 SEEN /hpf (<or=2+); Red Blood Cells-Urine 0 SEEN /hpf (0-5); Squamous Epithelial Cells - UA 0 SEEN /hpf (5-10); White Blood Cells 0 SEEN /hpf (0-5)
[2023-07-28 14:28] LABS: Color, Urine Yellow (Yellow); Glucose, Dipstick Normal (Normal); Ketone-Dipstick Negative (Negative); Leukocyte Esterase-Dipstick Negative /ul (Negative); Nitrite-Dipstick Negative (Negative); Occult Blood-Urine Negative /ul (Negative); Protein-Dipstick 15 mg/dl (Negative); Urine Bilirubin Dipstick Negative (Negative); Urine Clarity Clear (Clear); Urine Urobilinogen Normal (Normal)
[2023-07-28 14:44] LABS: Amorphous Sediment 1+
[2023-07-28 16:08] VITALS: BP 160/89; PULSE 83; RESP 16; O2SAT 96
== END 2023-07-28 16:08 | disposition home or self-care (01) ==
PROVIDERS: Emergency Provider Emergency Medicine; PCP Family Medicine Geriatric Medicine; Visit Provider Emergency Medicine
DX: S61.511A Laceration without foreign body of right wrist, initial encounter (principal); S61.411A Laceration without foreign body of right hand, initial encounter; I12.9 Hypertensive chronic kidney disease with stage 1 through stage 4 chronic kidney disease, or unspecified chronic kidney disease; W18.30XA Fall on same level, unspecified, initial encounter; N18.2 Chronic kidney disease, stage 2 (mild); Z86.73 Personal history of transient ischemic attack (TIA), and cerebral infarction without residual deficits; E78.5 Hyperlipidemia, unspecified; G20.A1 Parkinson's disease without dyskinesia, without mention of fluctuations; Z79.899 Other long term (current) drug therapy; Z79.82 Long term (current) use of aspirin; Z90.81 Acquired absence of spleen; Z90.49 Acquired absence of other specified parts of digestive tract
CPT/HCPCS: 12042; 70450; 73110; 80053; 81001; 85025; 93005; 96360; 99285; J7030; P9612; A4216

== ENCOUNTER 2023-08-01 12:55 | Outpatient (RCR) | payer MEDICARE, SELFPAY | END 2023-08-01 12:56 | disposition home or self-care (01) | LOC: PT 12:55 | PROVIDERS: PCP Family Medicine Geriatric Medicine; Visit Provider Family Medicine Geriatric Medicine | DX: M48.02 Spinal stenosis, cervical region (principal); G20.A1 Parkinson's disease without dyskinesia, without mention of fluctuations; U07.1 COVID-19 ==

== ENCOUNTER → 2023-08-20 | Outpatient (CLI) | payer MEDICARE, SELFPAY ==
[2023-08-20 15:32] LABS: Absolute Lymphocyte Count 8.14 X10^3/uL (0.83-4.51); Absolute Neutrophil Count 6.2 X10^3/uL (2.0-7.7); Basophil# 0.44 X10^3/uL; Basophil% 2.7 % (0-1); Eosinophils% 1.8 % (0-5); Hematocrit 36.7 % (37-47); Hemoglobin 11.6 g/dL (12.0-15.0); Lymphocyte # 8.14 X10^3/ul (0.83-4.51); Lymphocyte % 49.5 % (19-41); Mean Corp Hgb Conc 31.6 g/dL (32-36); Mean Corpuscular Hgb 29.7 pg (27.0-32.0); Mean Corpuscular Volume 94.1 fL (81-99); Mean Platelet Vol. 11.9 fl (6.2-12.0); Monocyte# 1.38 X10^3/uL; Monocyte% 8.4 % (0-10); NRBC Flagged by Analyzer 0 % (0-5); Neutrophil # 6.15 X10^3/uL (2.7-7.7); Neutrophil % 37.3 % (47-70); POSITIVE COUNT YES; POSITIVE DIFFERENTIAL YES; POSITIVE MORPHOLOGY YES; Platelet Count 207 K/mm3 (150-450); RBC Distribution Width CV 13.9 % (11.6-14.6); RBC Distribution Width SD 47.7 fl (35.1-43.9); White Blood Count 16.5 K/mm3 (4.4-11.0)
[2023-08-20 15:45] LABS: Anion Gap 4 (5-15); BUN 24 mg/dL (7-18); BUN/Creat Ratio 22.9 RATIO (10-20); Chloride 107 mmol/L (98-107); Creatinine, Serum 1.05 mg/dL (0.55-1.02); EST Glomerular Filtration Rate 53 mL/min (>60); Est Glom Filt Rate - Afr Amer 64 mL/min (>60); Glucose 106 mg/dL (74-106); Potassium 4.4 mmol/L (3.5-5.1); Sodium Level 138 mmol/L (136-145)
[2023-08-20 15:51] LABS: Differential Indicated SCAN CRITERIA MET
[2023-08-20 16:16] LABS: Differential Comment SCANNED
--- OUTSIDE RECORDS SUMMARY | 2023-08-20 19:03 | XMS RPT_ITS | CCD ---
Author Name Unknown Address [id number] [place] [address] Organization [facility] Care Team Providers Care Clinical Data Assistant Name Role Phone FARHAD Reagan, Amy Mao Unavailable Unavailabl e FARHAD Reagan, Amy Mao Unavailable Unavailabl e Taye, Chris-Chi Primary Care Provider Taye MASON, Chris-Gustavo Primary Care Provider Taye, Chris Chi Primary Care Provider [phone] TAYE MASON, DR PEREZGUSTAVO Primary Care Physician Sadaf Love PT Unavailable Unavailable Taye, Chris Chi Primary Care Provider Taye, Chris Chi Primary Care Provider Taye, Chris Chi Primary Care Provider [phone] TAYE, CHRIS CHI Primary Care Unavailable ITIN, SRIDEVI Referring Unavailable TAYE, CHRIS CHI Primary Care Unavailable SELVIN LOWE Referring Unavailable TAYE, CHRIS CHI Primary Care Unavailable MASCI, BART A Attending Unavailable MASCI, BART A Referring Unavailable TAYE, CHRIS CHI Primary Care Unavailable MASCI, BART A Referring Unavailable TAYE, CHRIS CHI Primary Care Unavailable SELVIN LOWE Attending Unavailable TAYE, CHRIS CHI Primary Care Unavailable MASCI, BART A Attending Unavailable MASCI, BART A Referring Unavailable TAYE, CHRIS CHI Primary Care Unavailable TAYE, CHRIS CHI Primary Care Unavailable SILVA HERNANDEZ Attending Unavailable TAYE, CHRIS CHI Primary Care Unavailable BRADFORDSELVIN Attending Unavailable SELVIN LOWE Referring Unavailable Allergies Allergy Classification Reported Allergen(s) Allergy Type Date of Onset Reaction(s) Facility (2 sources) mold extract; Translations: [MOLD] Drug Allergy 1 [facility] Work Phone: [phone] (2 sources) potassium Drug Allergy 1 Rash [facility] Work Phone: [phone] (20 sources) traMADol; Translations: [TRAMADOL] Drug Allergy 7 Nausea Only, GI Upset [facility] Work Phone: [phone] (2 sources) RAGWEED drug allergy 1 [facility] Work Phone: [phone] (4 sources) Penicillins; Translations: [PENICILLINS] Propensity to adverse reactions to drug 5 [place], [place] (2 sources) Penicillins Drug Allergy 5 [facility] Work Phone: (19 sources) environmental [Other] Propensity to adverse reactions 5 [facility] Work Phone: (20 sources) Penicillins Drug Allergy 5 [facility] Work Phone: (2 sources) OTHER; Translations: [OTHER] Propensity to adverse reactions (disorder) 5 [facility] Other [place] [facility] Medications Current Medications Medication Drug Class(es) [...] 5-500 MG TABS As needed HYDROCODONE-ACETAMIN OPHEN [id number] Aleta Castellanos RN Problems Active Problems Problem Classification Problem Date Documented Date Episodic/Chronic Abdominal hernia (1 source) Disorder of abdominal wall; Translations: [Ventral hernia without obstruction or gangrene] Episodic Cardiac dysrhythmias (4 sources) Ventricular premature beats; Translations: [Premature atrial contraction] Onset: 11-24-2013 11-24-2013 Chronic Diseases of white blood cells (20 sources) Leukocytosis; Translations: [Elevated white blood cell count, unspecified] Onset: 07-21-2011 07-21-2011 Chronic Disorders of lipid metabolism (2 sources) Hyperlipidemia; Translations: [Hyperlipidemia, unspecified] Onset: 09-02-2010 09-02-2010 Chronic Diverticulosis and diverticulitis (20 sources) Diverticulosis of colon; Translations: [Diverticulosis of large intestine without perforation or abscess without bleeding] Onset: 12-05-2006 04-18-2010 Chronic Heart valve disorders (8 sources) Tricuspid incompetence, non-rheumatic ; Translations: [Tricuspid valve regurgitation] Onset: 09-02-2010 06-16-2016 Chronic Other circulatory disease (20 sources) Raynaud's disease; Translations: [Raynaud's syndrome without [...] sleep behavior disorder] Chronic Residual codes; unclassified (20 sources) 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; Translations: [Insomnia due to medical condition] Onset: 12-31-2017 12-31-2017 Chronic Residual codes; unclassified (1 source) REM sleep behavior disorder; 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)] Onset: 07-18-2022 Chronic Unclassified (2 sources) Long-term drug therapy; Translations: [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] Onset: 09-02-2010 09-02-2010 Past [...] murmur, unspecified] Onset: 1 09-02-2010 Episodic Hemorrhoids (20 sources) Internal hemorrhoids; Translations: [Other hemorrhoids] Onset: 7 04-18-2010 Episodic Malaise and fatigue (2 sources) Fatigue; Translations: [Other fatigue] Onset: 7 06-26-2016 Episodic Neoplasms of unspecified nature or uncertain behavior (20 sources) Lymphoproliferative disorder; 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, hematopoietic and related tissue] Onset: 2 Episodic Non-Hodgkin`s lymphoma (20 sources) History of malignant lymphoma; Translations: [Personal history of other malignant neoplasms of lymphoid, hematopoietic and related tissues] Onset: 4 12-15-2013 Episodic Other and unspecified benign neoplasm (2 sources) Benign neoplasm of mediastinum; Translations: [Benign neoplasm of mediastinum] Onset: 1 09-02-2010 Episodic Other and unspecified benign neoplasm (20 sources) Benign neoplasm of colon; Translations: [Benign neoplasm of colon, unspecified] Onset: 7 04-18-2010 Episodic Other connective tissue disease (2 sources) Cramp in lower limb; Translations: [Cramp and spasm] Onset: 7 06-26-2016 Episodic Other nervous system disorders (1 source) Unspecified abnormalities of gait and mobility; Translations: [Abnormality of gait] Onset: 3 Episodic Other nutritional; endocrine; and metabolic disorders (20 sources) Abnormal weight loss; Translations: [Abnormal weight loss] Onset: 8 12-31-2017 Episodic Syncope (2 sources) Syncope and collapse; Translations: [Syncope and collapse] Onset: 1 09-02-2010 Episodic Results Test Name Value Interpretation Reference Range Facil ity Vital Signs Date Time Vital Sign Value Performing Clinician Facility 08-17-2023 10:49-0500 Body temperature 97.3 [degF] Bart [employer] Work Phone: [facility] 08-17-2023 10:49-0500 Body weight 43.09 kg Bart [employer] Work Phone: [facility] 08-17-2023 10:49-0500 Diastolic blood pressure 64 mm[Hg] Bart [employer] Work Phone: [facility] 08-17-2023 10:49-0500 Heart rate 92 /min Bart [employer] Work Phone: [facility] 08-17-2023 10:49-0500 SaO2% (BldA) [Mass fraction] 96 % Bart [employer] Work Phone: [facility] 08-17-2023 10:49-0500 Systolic blood pressure 102 mm[Hg] Bart [employer] Work Phone: [facility] 04-04-2023 13:20-0400 Body height 152.4 cm Selvin Lowe MD Work Phone: [facility] 04-04-2023 13:20-0400 Body weight 44 kg Selvin Lowe MD Work Phone: [facility] 04-04-2023 13:20-0400 SaO2% (BldA) [Mass fraction] 98 % Selvin Lowe MD Work Phone: [facility] 02-13-2023 11:24-0400 Body height 156 cm Bart Masci DO Work Phone: [facility] 02-13-2023 11:24-0400 Body temperature 97.5 [degF] Bart Masci DO Work Phone: [facility] 02-13-2023 11:24-0400 Body weight 43.55 kg Bart Masci DO Work Phone: [facility] 02-13-2023 11:24-0400 Diastolic blood pressure 81 mm[Hg] Bart Masci DO Work Phone: [facility] 02-13-2023 11:24-0400 Heart rate 89 /min Bart Masci DO Work Phone: [facility] 02-13-2023 11:24-0400 SaO2% (BldA) [Mass fraction] 97 % Bart Masci DO Work Phone: [facility] 02-13-2023 11:24-0400 Systolic blood pressure 111 mm[Hg] Bart Masci DO Work Phone: [facility] 08-15-2022 11:13-0500 Body height 156.2 cm Bart Masci DO Work Phone: [facility] 08-15-2022 11:13-0500 Body temperature 97 [degF] Bart Masci DO Work Phone: [facility] 08-15-2022 11:13-0500 Body weight 45.59 kg Bart Masci DO Work Phone: [facility] 08-15-2022 11:13-0500 Diastolic blood pressure 76 mm[Hg] Bart Masci DO Work Phone: [facility] 08-15-2022 11:13-0500 Heart rate 48 /min Bart Masci DO Work Phone: [facility] 08-15-2022 11:13-0500 Systolic blood pressure 120 mm[Hg] Bart Masci DO Work Phone: [facility] 07-05-2022 15:39-0500 Body height 156.8 cm Sridevi Ocasio MD Work Phone: [facility] 07-05-2022 15:39-0500 Body weight 46.27 kg Sridevi Ocasio MD Work Phone: [facility] 07-05-2022 15:39-0500 Diastolic blood pressure 68 mm[Hg] Sridevi Ocasio MD Work Phone: [facility] 07-05-2022 15:39-0500 Heart rate 73 /min Sridevi Ocasio MD Work Phone: [facility] 07-05-2022 15:39-0500 SaO2% (BldA) [Mass fraction] 95 % Sridevi Ocasio MD Work Phone: [facility] 07-05-2022 15:39-0500 Systolic blood pressure 138 mm[Hg] Sridevi Ocasio MD Work Phone: [facility] 02-14-2022 11:51-0400 Body height 156.8 cm Bart Masci DO Work Phone: [facility] 02-14-2022 11:51-0400 Body temperature 97 [degF] Bart Masci DO Work Phone: [facility] 02-14-2022 11:51-0400 Body weight 46.27 kg Bart Masci DO Work Phone: [facility] 02-14-2022 11:51-0400 Diastolic blood pressure 90 mm[Hg] Bart Masci DO Work Phone: [facility] 02-14-2022 11:51-0400 Heart rate 67 /min Bart Masci DO Work Phone: [facility] 08-30-2022 11:51-0400 Systolic blood pressure 147 mm[Hg] Bart Brooks DO Work Phone: [facility] 09-19-2021 14:33-0400 Body height 158 cm Sridevi Ocasio MD Work Phone: [facility] 09-19-2021 14:33-0400 Body weight 48.53 kg Sridevi Ocasio MD Work Phone: [facility] 09-19-2021 14:33-0400 Diastolic blood pressure 70 mm[Hg] Sridevi Ocasio MD Work Phone: [facility] 09-19-2021 14:33-0400 Heart rate 86 /min Sridevi Ocasio MD Work Phone: [facility] 09-19-2021 14:33-0400 SaO2% (BldA) [Mass fraction] 97 % Sridevi Ocasio MD Work Phone: [facility] 09-19-2021 14:33-0400 Systolic blood pressure 142 mm[Hg] Sridevi Ocasio MD Work Phone: [facility] 05-27-2019 09:30-0500 Body temperature 97.81 [degF] Brandon Faye MD Work Phone: [facility] Work Phone: 05-27-2019 09:30-0500 Diastolic blood pressure 78 mm[Hg] Brandon Faye MD Work Phone: [facility] Work Phone: 05-27-2019 09:30-0500 Heart rate 68 /min Brandon Faye MD Work Phone: [facility] Work Phone: 05-27-2019 09:30-0500 Respiratory rate 15 /min Brandon Faye MD Work Phone: [facility] Work Phone: 05-27-2019 09:30-0500 SaO2% (BldA) [Mass fraction] 94 % Brandon Faye MD Work Phone: [facility] Work Phone: 05-27-2019 09:30-0500 Systolic blood pressure 123 mm[Hg] Brandon Faye MD Work Phone: [facility] Work Phone: 05-27-2019 06:56-0500 Body height 157.5 cm Brandon Faye MD Work Phone: [facility] Work Phone: 05-27-2019 06:56-0500 Body mass index (BMI) [Ratio] 19.66 kg/m2 Brandon Faye MD Work Phone: [facility] Work Phone: 05-27-2019 06:56-0500 Body weight 48.76 kg Brandon Faye MD Work Phone: [facility] Work Phone: 2019 13:58-0500 Height 157.5 cm [place], [place] 2019 13:56-0500 BMI (Body Mass Index) 19.74 kg/m2 [facility] [place], [place] 2019 13:56-0500 Body Temperature 98.6 [degF] [place], [place] 2019 13:56-0500 Body weight 48.94 kg [place] 13:56-0500 BP Diastolic 95 mm[Hg] [place], [place] 2019 13:56-0500 BP Systolic 170 mm[Hg] [place], [place] 2019 13:56-0500 Pulse (Heart Rate) 59 /min [place], [place] 2019 13:56-0500 Pulse Oximetry 95 % [place], [place] 2019 13:56-0500 Respiratory Rate 16 /min [facility] [place], [place] 01-08-2017 13:29-0400 BMI (Body Mass Index) 20.19 kg/m2 Amy Reagan RN [facility] Work Phone: 01-08-2017 13:29-0400 BP [...] Work Phone: 01-08-2017 13:29-0400 Weight 51.71 kg FARHAD [facility] Work Phone: 06-26-2016 13:50-0500 BSA (Body Surface Area) 1.52 m2 FARHAD [facility] Work Phone: Encounters Encounter Date Encounter Type Care Provider Facility Start: 08-17-2023 End: 08-18-2023 ambulatory CHRIS CHI TAYE Facility:[facility] Start: 08-17-2023 End: 08-17-2023 Visit (SP) Office Bart Brooks DO Work Phone: Hematology/Oncology Procedures Date Procedure Procedure Detail Performing Clinician Start: 06-30-2022 Screening mammograph y bi 2-view breast inc cad Silva Hernandez MD Work Phone: Start: 2019 Basic metabolic pane l calcium total Yoana R Glasco Work Phone: Start: 2019 Blood count complete automated Yoana R Oumou Work Phone: Start: 05-07-2017 End: 05-07-2017 Ecg routine ecg w/least 12 lds w/i&r Tiago Vigil MD Start: 01-08-2017 End: 01-08-2017 Follow Up Appt 1 year Bart Marquez Start: 01-08-2017 End: 01-08-2017 PFM Bart Olivarez MD Start: 06-26-2016 End: 06-28-2016 *BMP Gonzalez Geovani Bernard CHLOROBUTADIENE SCRUBBER OPERATOR-C Start: 06-26-2016 End: 06-28-2016 *CBC with Differential Gonzalez A Bernard CHLOROBUTADIENE SCRUBBER OPERATOR- C Start: 06-26-2016 End: 12-26-2016 Follow Up Appt Other Gonzalez A Bernard CHLOROBUTADIENE SCRUBBER OPERATOR-C Start: 06-26-2016 End: 06-28-2016 Magnesium [Mass/volume] in Serum or Plasma Gonzalez A Bernard CHLOROBUTADIENE SCRUBBER OPERATOR-C Start: 04-13-2016 End: 12-26-2016 *Hepatic Function Panel [...] PA-C Work Phone: Start: 06-25-2015 End: 06-25-2015 PFM Julissa Da Silva PA-C Work Phone: [...] Bart Olivarez MD Start: 11-23-2014 End: 11-23-2014 MMM Bart Olivarez MD Start: 10-06-2014 End: 10-06-2014 *Hepatic Function Panel Bart Olivarez MD Start: 10-06-2014 End: 10-06-2014 Lipid 1996 panel - Serum or Plasma Bart Olivarez MD Start: 05-26-2014 End: 05-26-2014 Follow Up Appt Other Julissa mcfadden PA-C Work Phone: Start: 05-26-2014 End: 05-26-2014 PF Julissa Da Silva PA-C Work Phone: [...] DTaP,Tdap,Td Vaccine (3 - Td or Tdap) [facility] Start: 08-15-2025 DIABETES SCREEN DIABETES SCREEN [facility] Start: 08-15-2025 Diabetes Screening Diabetes Screening [facility] Start: 02-14-2025 DIABETES SCREEN DIABETES SCREEN [facility] Start: 08-17-2023 End: 11-16-2023 CBC W Auto Differential panel - Blood CBC + DIFF Lab STAT 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) Expected: 08/17/2023, Expires: 11/16/2023 [facility] Work Phone: Immunizations Immunization Date Immunization Notes Care Provider Fa cility 02-22-2023 influenza (aIIV4) vaccine, age 65+ yr, quadrivalent, PF (FLUAD QUAD) Selvin Lowe MD Work Phone: [facility] Work Phone: 02-22-2023 respiratory syncytia l virus (RSV) vaccine, adjuvanted (AREXVY) Selvin Lowe MD Work Phone: [facility] Work Phone: 01-15-2023 tetanus toxoid, redu carlton diphtheria toxoid, and acellular pertussis vaccine, adsorbed Selvin Lowe MD Work Phone: [facility] Work Phone: 05-12-2022 tetanus toxoid, redu carlton diphtheria toxoid, and acellular pertussis vaccine, adsorbed Selvin Lowe MD Work Phone: [facility] Work Phone: 04-06-2021 COVID-19 vaccine, fu ll dose (MODERNA) Sridevi Ocasio MD Work Phone: [facility] Work Phone: 02-03-2021 influenza, injectabl e, quadrivalent, contains preservative Sridevi Ocasio MD Work Phone: [facility] Work Phone: 08-13-2020 COVID-19 vaccine, fu ll dose (MODERNA) Sridevi Ocasio MD Work Phone: [facility] Work Phone: 07-16-2020 COVID-19 vaccine, fu ll dose (MODERNA) Sridevi Ocasio MD Work Phone: [facility] Work Phone: 02-10-2020 influenza, injectabl e, quadrivalent, contains preservative Sridevi Ocasio MD Work Phone: [facility] Work Phone: 08-06-2019 zoster vaccine recombinant Sridevi Ocasio MD Work Phone: [facility] Work Phone: 04-08-2019 zoster vaccine recombinant Sridevi Ocasio MD Work Phone: [facility] Work Phone: 02-20-2019 pneumococcal conjuga te vaccine, 13 valent Sridevi Ocasio MD Work Phone: [facility] Work Phone: 02-20-2019 Seasonal trivalent influenza vaccine, adjuvanted, preservative free Selvin Lowe MD Work Phone: [facility] Work Phone: 03-21-2018 influenza, high dose seasonal, preservative-free Selvin Lowe MD Work Phone: [facility] Work Phone: 03-05-2013 influenza, seasonal, injectable Selvin Lowe MD Work Phone: [facility] Work Phone: 04-05-2012 influenza virus vacc ine, whole virus Selvin Lowe MD Work Phone: [facility] Work Phone: 03-18-2012 influenza virus vacc ine, unspecified formulation Sridevi Ocasio MD Work Phone: [facility] 08-16-2011 haemophilus influenz ae type b vaccine, HbOC conjugate Sridevi Ocasio MD Work Phone: [facility] Work Phone: 08-03-2011 Meningococcal, MCV4, unspecified conjugate formulation(groups A, C, Y and W-135) Sridevi Ocasio MD Work Phone: [facility] Work Phone: 08-03-2011 pneumococcal polysaccharide vaccine, 23 valent Sridevi Ocasio MD Work Phone: [facility] Work Phone: 04-11-2010 pneumococcal polysaccharide vaccine, 23 valent Bart Brooks DO Work Phone: [facility] Work Phone: 03-25-2010 influenza virus vacc ine, whole virus Selvin Lowe MD Work Phone: [facility] Work Phone: 06-02-2009 novel influenza-H1N1 -09, preservative-free, injectable Sridevi Ocasio MD Work Phone: [facility] Work Phone: 04-16-2007 influenza virus vacc ine, whole virus Selvin Lowe MD Work Phone: [facility] Work Phone: Payers Date Payer Category Payer Medicare AETNA MEDICARE A ETNA MEDICARE PPO [id number] 2021-Present [phone] [address] [place] [address] [facility] [id number] 2019 Medicare AETNA MEDICARE A ETNA MEDICARE-ADVANTAGE PPO [id number] 2019-Present [address] [place] [address] Medicare [id number] 2009 Medicare [id number] 2009 Medicare [id number] Social History Date Type Detail Facility Start: 2019 End: 07-05-2022 Tobacco smoking status NHIS Never smoker [facility] Start: 2019 End: 05-27-2019 [facility]: [facility] SDOH [facility]: 1935 [facility] Start: 09-19-2021 End: 08-17-2023 Alcohol intake Current non-drinker of alcohol (finding) [facility] Start: 09-09-2021 End: 02-14-2022 Exposure to SARS-CoV-2 (event) Not sure [facility] Start: 07-05-2022 Tobacco use and exposure Smoke less tobacco non-user [facility] Start: 02-13-2023 End: 04-04-2023 History of Social function [facility] Start: 02-13-2023 End: 04-04-2023 Tobacco use panel [facility] Adult Depression Screening Assessment 0 [facility] Functional Status Date Assessment Result Facility 10-07-2021 Functional Status OBJECTIVE Posture: WNL Gait: amb with large step length and arm swing, no AD Transfers: able to perform sit to stand with no UE support Coordination: hand gestures, toe tapping, arm rolls - symmetyrical, no abnormalties AROM: WNL PROM: WNL MMT: grossly 4+/5 except hip adductors 4/5 and bilat hamstrings 4/5 [employer] Sales Representative strength L: 45 lbs - pt is left hand dominant [employer] Sales Representative strength R: 30 lb TUG- 8 seconds Gan out of 56 Activity-Specific Balance Confidence Scale (ABC): 87% [facility] Clinical Notes 05-27-2019 to 08-17-2023 Bart Brooks DO - 08/17/2023 10:52 AM ESTTelephone Encounter - Selvin Lowe MD - 07/30/2023 3:11 PM ESTTelephone Encounter - Erika Chandra - 07/30/2023 1:40 PM ESTPatient Instructions Note Date & Type Note Facility 08-17-2023 Note HNO ID: [id number] Author: BART BROOKS DO Service: ? Author Type: Physician Type: Progress Notes Filed: 08/17/2023 11:13 Note Text: Diagnosis: 1) Lymphoproliferative disorder. HPI: The patient is a 88 yo female whom I saw in consultation at [facility] in 2006 for pancytopenia following an admission [...] definite evidence of malignancy. PET done at [facility] 07/31/11: The PET scan revealed increased [...] adenopathy. Presents for follow up. 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 Parkinson symptoms progressed. No acute illnesses since last seen. Appetite is decreased but she denies early satiety and postprandial nausea. No abdominal pain. No unusual bleeding or unexplained bruising. PMH, medications and allergies as below personally reviewed by me today. Any changes documented in appropriate section. ROS: Constitutional: See above. Neuro: Denies symptoms of neuropathy. HEENT: No recent change in voice, vision or hearing. Resp: Denies hemoptysis. Denies shortness of breath at rest. CVS: Denies exertional chest pain, PND, orthopnea and LE edema. GI: See above. : Denies dysuria or gross hematuria. No symptoms of bladder outlet obstruction. Endo: Denies hot flashes. Denies polyuria and polydipsia. Denies heat and cold intolerance. Musculoskeletal: Denies bone, back, joint and muscular pain. Derm: Denies rash. Denies jaundice and diffuse pruritis. Heme: See above. Psych: Normal mood. PHYSICAL EXAM: Vitals: Blood pressure 102/64, pulse 92, temperature 36.3 ?C (97.3 ?F), tempera (more content not included)... [facility] 08-17-2023 History of Present illness Narrative Diagnosis: 1) Lymphoproliferative disorder. HPI: The patient is a 88 yo female whom I saw in consultation at [facility] in 2006 for pancytopenia following an admission [...] definite evidence of malignancy. PET done at [facility] 07/31/11: The PET scan revealed increased [...] adenopathy. Presents for follow up. 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 Parkinson symptoms progressed. No acute illnesses since last seen. Appetite is decreased but she denies early satiety and postprandial nausea. No abdominal pain. No unusual bleeding or unexplained bruising. PMH, medications and allergies as below personally reviewed by me today. Any changes documented in appropriate section. ROS: Constitutional: See above. Neuro: Denies symptoms of neuropathy. HEENT: No recent change in voice, vision or hearing. Resp: Denies hemoptysis. Denies shortness of breath at rest. CVS: Denies exertional chest pain, PND, orthopnea and LE edema. GI: See above. : Denies dysuria or gross hematuria. No symptoms of bladder outlet obstruction. Endo: Denies hot flashes. Denies polyuria and polydipsia. Denies heat and cold intolerance. Musculoskeletal: Denies bone, back, joint and muscular pain. Derm: Denies rash. Denies jaundice and diffuse pruritis. Heme: See above. Psych: Normal mood. PHYSICAL EXAM: Vitals: Blood pressure 102/64, pulse 92, temperature 36.3 C (97.3 F), temperature source Temporal, weight 43.1 kg (95 lb), SpO2 96%. Frail-appearing and in no acute distress. EYES: Sclerae are anicteric bilaterally. LYMPHATIC: There is no palpable cervical, supraclavicular, axillary or inguinal adenopathy. RESPIRATORY: Inspiratory breath sounds are of normal intensity in all cary. CARDIOVASCULAR: Rhythm is irregular. ABDOMEN: The abdomen is nondistended. Extremities: Free of edema. SKIN: No jaundice or rash. No petechiae. NEUROLOGIC: Gait unsteady. Using wheeled walker. LABS: Component Latest Ref Rng & Units 02/14/2022 08/15/2022 02/07/2023 08/17/2023 WBC 3.70 - 11.00 k/uL 14.47 (H) 13.69 (H) 14.96 (H) 12.68 (H) RBC 3.90 - 5.20 m/uL 4.19 4.35 4.24 4.02 Hemoglobin 11.5 - 15.5 g/dL 12.9 13.2 12.8 12.2 Hematocrit 36.0 - 46.0 % 39.1 40.0 39.4 37.1 MCV 80.0 - 100.0 fL 93.3 92.0 92.9 92.3 MCH 26.0 - 34.0 pg 30.8 30.3 30.2 30.3 MCHC 30.5 - 36.0 g/dL 33.0 33.0 32.5 32.9 RDW-CV 11.5 - 15.0 % 13.7 13.1 13.5 13.9 Platelet Count 150 - 400 k/uL 337 343 392 344 MPV 9.0 - 12.7 fL 9.3 9.0 9.0 9.9 NRBC /100 WBC 0.0 0.0 0.0 Absolute nRBC <0.01 k/uL <0.01 <0.01 <0.01 Neut% % 42.0 36.0 45.0 Abs Neut (ANC) 1.45 - 7.50 k/uL 6.08 4.93 6.73 Lymph% % 45.0 47.0 43.0 Abs Lymph 1.00 - 4.00 k/uL 6.51 (H) 6.98 (H) 6.43 (H) Vernon% % 6.0 7.0 6.0 Abs Vernon <0.87 k/uL 0.87 (H) 0.96 (H) 0.90 (H) Eosin% % 5.0 6.0 5.0 Abs Eosin <0.46 k/uL 0.72 (H) 0.82 (H) 0.75 (H) Baso% % 2.0 0.0 1.0 Abs Baso <0.11 k/uL 0.29 (H) 0.00 0.15 (H) Platelet Estimate Adequate Adequate Adequate Red Cell Morph Reviewed: see results of individual morphologies Reviewed: see results of individual morphologies Reviewed: see results of individual morphologies Acanthocyte Few Few Ovalocytes Few Few RBC Fragments None Seen Few (A) Few (A) Few (A) Tear Drop Few Love [place] Bodies Occasional Occasional Occasional DTYPE Manual Manual Manual Target Cells Few Realym% % 4.0 LD 135 - 214 U/L 192 249 (H) ASSESSMENT/PLAN: (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 Assessment: -Minimal RP and pelvic mesenteric lymphadenopathy that was asymptomatic. -Previous splenic fracture secondary to extramedullary hematopoiesis. -Received an 8-week course of rituximab 10 years ago. -No concerning symptoms or exam findings. -Reviewed labs with her. Total white blood cell count at its lowest in quite some time. Awaiting today's absolute lymphocyte count. -Again reviewed the expected overall natural history [...] symptoms. Plan: -OV/CBC/LDH in about 6 months. -Has follow up scheduled with neurology in September. Portions of this documentation were copied and pasted from previous office visit notes in order to provide a cohesive continuity of the history. The note has been reviewed and edited and updated as necessary. I spent a total of 20 minutes on the date of the service which included preparing to see the patient, [id number] patient care, completing clinical documentation, obtaining and/or reviewing separately obtained history, performing a medically appropriate examination, counseling and educating the patient/family/caregiver, ordering medications, tests, or procedures, communicating with other HCPs (not separately reported), and communicating results to the patient/family/caregiver. Bart Brooks DO documented in this encounter [facility] 07-30-2023 Miscellaneous Notes Done Addis requesting refill as follows: Last FUV Mar 2023 with MARCELINA. LESLIE Requested Prescriptions Pending Prescriptions Disp Refills carbidopa-levodopa (SINEMET) 25-100 mg per tablet 540 tablet 3 Si tablet 3 times a day at 8am, 1pm and 6pm Upon approval, script will be sent electronically to the patient's pharmacy. Erika Tobin, Research Electrician III documented in this encounter [facility] 07-03-2023 Note HNO ID: [id number] Author: SILVA HERNANDEZ MD Service: ? 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 Patient states understanding and is in agreement with this plan Silva Hernandez MD [facility] 05-22-2023 Miscellaneous Notes Spoke with patient, message [...] the PD is working on her - [phone]. 04/04/23 FUV w/Dr. Lowe 10/08/23 FUV w/Gerry Lowe documented in this encounter [facility] 04-04-2023 Note HNO ID: [id number] Author: Selvin Lowe MD Service: ? Author Type: Physician Type: Progress Notes Filed: 04/04/2023 4:56 PM Note Text: [facility] - FOLLOW UP EVALUATION Chris Zimmerman MD [phone] [address] I had the pleasure of seeing Ms. [...] when walking sometimes. Plans on going to [facility] for PT. 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 [facility] 04-04-2023 History of Present illness Narrative [facility] - FOLLOW UP EVALUATION Chris Zimmerman MD [phone] [address] I had the pleasure of seeing Ms. [...] when walking sometimes. Plans on going to [employer] for PT. 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 Rapid alternating movement normal. Xvnr-rw-wmtv normal.Left: Rcebku-ek-ejou normal. Rapid alternating movement normal. Pcdm-bg-rann normal. Gait Generally stable gait except for [...] please feel free to send me a Blipify message or contact the office - PT [...] Selvin Lowe MD documented in this encounter [facility] 04-04-2023 Instructions Selvin Lowe MD - [...] please feel free to send me a Blip[employer] message or contact the office Movement Disorders Medication Schedule: Medications 8a 1p 6p Sinemet 25/100 2 2 2 Return in about 6 months (around 10/04/2023). If there are any concerns before your next visit, please call or you can send a message through Friend[employer]. You can also now schedule and select appointments through [employer]. Selvin Lowe MD Fatigue and Parkinson s [...] studying fatigue. Flaco Valenzuela, Ph.D. at [employer] [facility] is studying Multi-modal Neuroimaging of Fatigue in [...] with PD. Bishnu Christensen M.D. at [employer] is studying Remotely Supervised Transcranial Direct Current [...] For more information and resources see [email or web address] [facility] is a Center of Excellence for [...] increase blood pressure. documented in this encounter [facility] 03-15-2023 Note HNO ID: [id number] Author: Sadaf Brooke RT(R) Service: ? Author Type: Technologist Type: Progress Notes Filed: 03/15/2023 11:42 AM Note Text: Radiology Service Progress Note PATIENT NAME: Addis Hayens DATE OF SERVICE: March 15, 2023 TIME: [...] RT Aroldo(R) March 15, 2023 11:41 AM [facility] 02-15-2023 Note HNO ID: [id number] Author: Noris Willard, PT Service: ? Author Type: Physical Therapist Type: Progress Notes Filed: 02/15/2023 9:59 AM Note Text: 02/15/2023 [facility] PHYSICAL THERAPY [...] scheduled additional follow-up appointments. Noris Willard, PT [facility] 02-13-2023 Note HNO ID: [id number] Author: Bart Brooks DO Service: ? Author Type: Physician Type: Progress Notes Filed: 02/13/2023 12:20 PM Note Text: Diagnosis: 1) Lymphoproliferative disorder. HPI: The patient is a 87 yo female whom I saw in consultation at [facility] in 2006 for pancytopenia following an admission [...] definite evidence of malignancy. PET done at [facility] 07/31/11: The PET scan revealed increased [...] Denies hot flash (more content not included)... [facility] 02-13-2023 History of Present illness Narrative Diagnosis: 1) Lymphoproliferative disorder. HPI: The patient is a 87 yo female whom I saw in consultation at [facility] in 2006 for pancytopenia following an admission [...] definite evidence of malignancy. PET done at [facility] 07/31/11: The PET scan revealed increased [...] No jaundice or rash. No petechiae. 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 No focal motor [...] k/uL 8.64 (H) 6.98 (H) 6.43 (H) Vernon% % 6 7.0 7.0 6.0 Abs Vernon <0.87 k/uL 0.75 1.08 (H) 0.96 (H) [...] Few (A) Tear Drop Few Few [place] Bodies Occasional Occasional DTYPE Manual Manual Realym% [...] which included preparing to see the patient, [id number] patient care, completing clinical documentation, obtaining and/or reviewing separately obtained history, performing a medically appropriate examination, counseling and educating the patient/family/caregiver, communicating with other HCPs (not separately reported), and communicating results to the patient/family/caregiver. Bart Brooks DO documented in this encounter [facility] 11-20-2022 Miscellaneous Notes Patient called asking for EEG order to be faxed to [facility] diagnostic scheduling. Fax number [phone]. Order, demographics, and coverage faxed as requested. Electronically signed by [facility] Darryl Mcdonough at 11/20/2022 3:30 PM EDT documented in this encounter [facility] 10-03-2022 Note HNO ID: [id number] Author: Selvin Lowe MD Service: ? Author Type: Physician Type: Progress Notes Filed: 10/03/2022 8:12 PM Note Text: [facility] - FOLLOW UP EVALUATION No referring provider defined for this encounter. Chris Zimmerman MD [phone] [address] I had the pleasure of seeing Ms. [...] balance. Goes 3 times per week to [facility]. And 2 days at [employer]. Has had 3 falls within the past [...] Neurological Exam Men (more content not included)... [facility] 08-15-2022 History of Present illness Narrative Diagnosis: 1) Lymphoproliferative disorder. HPI: The patient is a 86 yo female whom I saw in consultation at [facility] in 2006 for pancytopenia following an admission [...] definite evidence of malignancy. PET done at [facility] 07/31/11: The PET scan revealed increased [...] No jaundice or rash. No petechiae. 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 No focal motor [...] (H) 6.05 (H) 6.84 (H) 6.51 (H) Vernon% % 6.0 11.0 9.0 6.0 Abs Vernon <0.87 k/uL 0.97 (H) 1.51 (H) 1.38 [...] Target Cells Few Few Few Few [place] Bodies Occasional Occasional DTYPE Manual ANC(includeSEG+BAND) k/uL [...] Bart Brooks DO documented in this encounter [facility] 07-18-2022 Note HNO ID: [id number] Author: Noris Willard PT Service: ? Author [...] of Care: created on 07/18/22 through 09/16/22 [place] in home exercise program. Patient will demonstrate [...] Planned: 8 Planned Treatment Interventions: Therapeutic exercise (95533), Neuromuscular re-education (06087), Therapeutic activities (57209), Patient/Family/Caregiver Education, Gait Training (80697) PLAN FOR NEXT VISIT: pt would like [...] Retired Recreation / Current Exercise: exercises at [employer] in [place] 3 days/week AND goes to [employer] group exercise class 2 days/week at [employer] in [place] Home Environment Patient Lives With: Self/Alone Home [...] Alignment Posture: Forw (more content not included)... [facility] 07-18-2022 History of Present illness Narrative Episode [...] of Care: created on 07/18/22 through 09/16/22 [place] in home exercise program. Patient will demonstrate [...] Planned: 8 Planned Treatment Interventions: Therapeutic exercise (24798), Neuromuscular re-education (84605), Therapeutic activities (85091), Patient/Family/Caregiver Education, Gait Training (92359) PLAN FOR NEXT VISIT: pt would like [...] Retired Recreation / Current Exercise: exercises at [employer] in [place] 3 days/week & goes to [employer] group exercise class 2 days/week at [place] in [place] Home Environment Patient Lives With: Self/Alone Home [...] Noris Willard PT documented in this encounter [facility] 07-07-2022 Miscellaneous Notes Pt returned the [...] how best to manage this. CALLBACK #: [phone] OK TO LEAVE MESSAGE: yes LAST FUV: yesterday with II documented in this encounter [facility] 07-06-2022 Miscellaneous Notes Clarification of C/L 25-100 mg dose was given to pharmacist per Dr. Ocasio's OV notes. 2 tablets by mouth TID at 8a, 1p & 6p. [facility] pharmacy called asking for clarification of directions for Sinemet sent yesterday. Si tablet 3 times a day [phone] Electronically signed by [facility] Darryl Mcdonough at 07/06/2022 9:32 AM EST documented in this encounter [facility] 07-05-2022 Instructions Sridevi Ocasio MD - 07/05/2022 4:30 PM EST Please, increase carbidopa/levodopa 25/100 to 2 tablets at 8 AM, 1 PM and 6 PM Please, physical therapy reassessment Please, follow-up in 6 months documented in this encounter [facility] 07-05-2022 History of Present illness Narrative [facility] - FOLLOW UP EVALUATION Chris Zimmerman MD [address] [facility] [address] [facility] [address] I had the pleasure of seeing Ms. [...] or around: 01/02/23 Level of service : 46650 (40-54 min). Time spent 45 min on the day of service, which included preparing to see the patient, [id number] patient care, completing clinical documentation, obtaining and/or [...] at 4:24 PM documented in this encounter [facility] 06-30-2022 History of Present [...] 2022 1:25 PM documented in this encounter [facility] 04-04-2022 Miscellaneous Notes Order pending. Myrna Lees RN Patient is scheduled for mammogram screening on 06/30/2022. Requesting updated order, current order expires 05/02/2022. Thank you. documented in this encounter [facility] 03-08-2022 Miscellaneous Notes Patient called, went over notes from Dr. Brooks with her in regards to her CT results. Patient will reach out to Dr. Zimmerman. Left message to return call to clinical. Faxed note and CT result to Dr Zimmerman. .me Can let her know that the [...] copy of the CT scan to Dr. Zimmerman. She may need a full CT of the chest to fully evaluate and also may ultimately benefit from a pulmonary referral but I will leave that to Dr. Zimmerman to decide. Bart Brooks DO documented in this encounter [facility] 02-14-2022 Miscellaneous Notes Spoke with pt. [...] Bart Brooks DO documented in this encounter [facility] 02-14-2022 History of Present illness Narrative Diagnosis: 1) Lymphoproliferative disorder. HPI: The patient is a 86 yo female whom I saw in consultation at [facility] in 2006 for pancytopenia following an admission [...] definite evidence of malignancy. PET done at [facility] 07/31/11: The PET scan revealed increased [...] No jaundice or rash. No petechiae. 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 No focal motor [...] (H) 8.64 (H) 6.05 (H) 6.84 (H) Vernon% % 6 6.0 7.0 11.0 9.0 Abs Vernon <0.87 k/uL 0.75 0.97 (H) 1.08 (H) 1.51 (H) 1.38 (H) Eosin% % 6 4.0 2.0 3.0 3.0 Abs Eosin <0.46 k/uL 0.75 (H) 0.64 (H) 0.31 0.41 0.44 Baso% % 1 2.0 2.0 0.0 1.0 Abs Baso <0.11 k/uL 0.12 (H) 0.32 (H) 0.31 (H) 0.00 0.43 (H) ANC(includeSEG+BAND) k/uL 5.96 5.09 5.78 Acanthocyte Few Few Few Few Love [place] Bodies Occasional Ovalocytes Few Few Few Few Few Target Cells Few Few Few Few Platelet Estimate Platelet estimate adequate Platelet estimate adequate Platelet estimate adequate Platelet estimate adequate Adequate Diff Type Manual Diff Manual Diff Manual Diff Tear Drop Few Abs Lym 1.00 - 4.00 K/uL 5.99 (H) Anisocytosis Present RBC Fragments None Seen Few (A) WBC, [place] 3.70 - 11.00 k/uL 13.90 (H) 11.69 (H) 14.70 (H) RBC, [place] 3.90 - 5.20 m/uL 4.07 4.20 4.11 Hemoglobin, [place] 11.5 - 15.5 g/dL 12.3 12.7 12.5 Hematocrit, [place] 36.0 - 46.0 % 38.2 38.0 37.6 MCV, [place] 80.0 - 100.0 fL 93.9 90.5 91.5 MCH, [place] 26.0 - 34.0 pg 30.2 30.2 30.4 MCHC, [place] 30.5 - 36.0 g/dL 32.2 33.4 33.2 RDW, [place] 11.5 - 15.0 % 13.5 14.2 14.7 Platelet Cnt, [place] 150 - 400 k/uL 297 293 317 MPV, [place] 9.0 - 12.7 fL 10.7 10.5 9.6 Neut%, [place] % 50 41.4 48 Lymp%, [place] % 40 41.7 37 Vernon%, [place] % 5 14.0 12 Eos%, [place] % 2 1.8 1 Baso%, [place] % 3 1.1 2 Abs Neut, [place] 1.45 - 7.50 k/uL 6.95 4.83 7.06 Abs Lymp, [place] 1.00 - 4.00 k/uL 5.56 (H) 4.88 (H) 5.44 (H) Abs Vernon, [place] <0.87 k/uL 0.70 1.64 (H) 1.76 (H) Abs Eos, [place] <0.46 k/uL 0.28 0.21 0.15 Abs Baso, [place] <0.11 k/uL 0.42 (H) 0.13 (H) 0.29 [...] Bart Brooks DO documented in this encounter [facility] 12-05-2021 Miscellaneous Notes Detailed message left on patient's identified VM. Patient to contact office for any questions. Daja Lambert LPN Blood counts are not much different. Hgb and platelets remain normal. Okay to follow up as scheduled. Bart Brooks DO Labs printed and placed in Dr. Brooks's mailbox for review. Daja Lambert LPN Pt stated she had labs done at [facility] 11/21/[address] Zimmerman. He noted that she had elevated white blook count and may want to be seen sooner by Dr Brooks. Please advise pt. She is scheduled in January to see him. documented in this encounter [facility] 09-19-2021 Instructions Sridevi Ocasio MD - 09/19/2021 3:15 PM EDT Please, increase carbidopa/levodopa 25/100 to 1.5 tablets 3 times a day at 8 AM, 1 PM and 6 PM Please, continue taking mirtazapine 7.5 mg at bedtime Please, think about re-visiting PD-specific physical therapy locally Please, follow-up in six months documented in this encounter [facility] 09-19-2021 History of Present illness Narrative [facility] - FOLLOW UP EVALUATION Chris Zimmerman MD [phone] [address] I had the pleasure of seeing Ms. [...] PROMIS-10 Office Visit from 09/19/2021 in [facility] Visit from 06/02/2019 in [facility] T Score 50.8 Global [...] Parkinson's Medication Schedule: Level of service : 19798 (40-54 min). Time spent 45 min on the day of service, which included preparing to see the patient, [id number] patient care, completing clinical documentation, obtaining and/or [...] Sridevi Ocasio MD documented in this encounter [facility] 05-27-2019 History of Present illness Narrative Pt sitting up and tolerating po well PATIENT RECEIVED FROM OR VIA CART. SPONT RESP. WITH FLAKE MILLER HELPER IN ATTENDANCE. PLACED ON MONITOR. MONITOR ALARMS ON IN PACU. RT arm elevated and ice pack applied Timeout performed prior to regional block procedure. Dr Kenyon in attendance. 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 Hernia of abdominal wall Ventral hernia, unspecified, without mention of obstruction or gangrene [facility]* Diagnosis Encounter for screening mammogram for malignant neoplasm of breast- Primary Other screening mammogram [facility] Diagnosis Parkinson's disease (HCC)- Primary Paralysis agitans Abnormality of gait 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 [facility] 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 [facility]* Diagnosis 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 Parkinson's disease (HCC) Paralysis agitans Abnormality of gait 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 [facility]* 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 [facility]* 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 [facility] Diagnosis Parkinson's disease without dyskinesia or fluctuating manifestations- Primary [facility]* Diagnosis Encounter for screening mammogram for malignant neoplasm of breast Other screening mammogram [facility] 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 [facility]* 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 [facility] Instructions* Brandon Faye MD - 05/27/2019 OK to move fingers and thumb within confined of splint Ice and elevate for pain control OK to take tylenol/ibuprofen for pain relief Keep bandage on until first post operative appointment documented in this [facility] Hospital Work Phone: Hospital Discharge instructions No data available for this section [facility] Progress note No data available for this section [facility] Reason for referral (narrative)* Diagnostic Procedure Only (Routine) - Authorized Specialty Diagnoses / Procedures Referred By Aron ramos Referred To Contact [facility] Diagnoses Encounter for screening mammogram for malignant neoplasm of breast Procedures GLEN SCREENING SCREENING MAMMOGRAPHY BI 2-VIEW BREAST INC Silva Camacho MD [address] [place] [address] Br Imaging [id number] [place] [id number] Referral ID Status Reason Start Date Expiration Date Visits Requested Visits Authorized [id number] Authorized Auto-Generat ed Referral 05/04/2023 1 1 [facility] for referral (narrative)* Diagnostic Procedure Only (Routine) - Closed Specialty Diagnoses / Procedures Referred By Aron ramos Referred To Contact [facility] Diagnoses Encounter for screening mammogram for malignant neoplasm of breast Procedures GLEN SCREENING SCREENING MAMMOGRAPHY BI 2-VIEW BREAST INC Silva Camacho MD [address] [place] [address] Br Imaging [address] [place] [address] Referral ID Status Reason Start Date Expiration Date V isits Requested Visits Authorized [id number] Closed Auto-Generate d Referral 04/04/2022 05/04/2023 1 1 [facility] for visit Narrative* Diagnostic Procedure Only (Routine) - Closed Specialty Diagnoses / Procedures Referred By Aron ramos Referred To Contact [facility] Diagnoses Encounter for screening mammogram for malignant neoplasm of breast Procedures GLEN SCREENING SCREENING MAMMOGRAPHY BI 2-VIEW BREAST INC Silva Camacho MD [address] [place] [address] Br Imaging [address] [place] [address] Referral ID Status Reason Start Date Expiration Date V isits Requested Visits Authorized [id number] Closed Auto-Generate d Referral 04/04/2022 05/04/2023 1 1 [facility] Discharge Instructions * Instructions* Fariba Ponce [...] please call your surgeon. Please bring your [facility] Information folder on the day of surgery. Please bring a photo ID and insurance information [facility]: ? Enter through Door number 2 ? Registration department is located here ? Patient will be escorted to [facility] ? [facility] does not open before 6am documented in this encounter History of Present Illness * Ramses Aguiar - 2019 1:30 PM EST Labs obtained on first attempt with 22 gauge needle at R ACF site, patient tolerated well, site benign. documented in this encounter Advance Directives No Advanced Directives Records FoundDocuments on File Type Date Recorded Patient Block Sealer Expl anation Advance Directives and Living Will Power of Line Decorator Latest Code Status on File Code Status Date Activated Date Inactivated Comments Full Code 05/27/2019 6:25 AM Summary Purpose Family History No Family History Records FoundNo Family History Records FoundNo Family History Records FoundNo Family History Records FoundNo Family History Records Found Reason for Referral Specialty Diagnoses / Procedures Referred By Aron t Referred To Contact Diagnoses Parkinson's disease (HCC) Abnormality of 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) Procedures PROVIDER ORDERED FOLLOW UP OFFICE/OUTPATIENT NEW HIGH MDM 60-74 MINUTES Sridevi Ocasio MD [address] [place] [address] Referral ID Status Reason Start Date Expiration Date Visits Requested Visits Authorized [id number] Pending Review PCP Requested Referral 07/05/2022 10/03/2022 1 1 Specialty Diagnoses / Procedures Referred By Contact Referred To Contact [facility] Diagnoses Parkinson's disease (HCC) Abnormality of 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) Procedures CONSULT TO PHYSICAL THERAPY PHYSICAL THERAPY EVALUATION HIGH COMPLEX 45 MINS Sridevi Ocasio MD [address] [place] [address] [facility] [place] [address] [place] [address] Referral ID Status Reason Start Date Expiration Date Visits Requested Visits Authorized [id number] Pending Review Auto-Generat ed Referral 07/05/2022 07/05/2023 1 1 Specialty Diagnoses / Procedures Referred By Contac t Referred To Contact CT IMAGING Diagnoses 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 Procedures CT ABD/PEL WO IVCON CT ABD & PELVIS W/O CONTRAST Bart Brooks, DO [address] [place] [address] Ct Imaging Referral ID Status Reason Start Date Expiration Date Visits Requested Visits Authorized [id number] Pending Review Auto-Generat ed Referral 02/14/2022 03/16/2023 1 1 Additional Source Comments INFORMATION SOURCE (unrecogn ized section and content) DATE CREATED AUTHOR AUTHOR'S ORGANIZ ATION 06/01/2020 [facility] DATE CREATED AUTHOR AUTHOR'S ORGANIZ ATION 02/16/2023 [facility] DATE CREATED AUTHOR AUTHOR'S ORGANIZ ATION 03/23/2023 [facility] DATE CREATED AUTHOR AUTHOR'S ORGANIZ ATION 08/19/2023 [facility] Source Comments (unrecognize d section and content) In the event this informatio n is protected by the Federal Confidentiality of Alcohol and Drug Abuse Patient Records regulations: The Federal rules restrict any use of the information to criminally investigate or prosecute any alcohol or drug abuse patient.[facility] the event this information is protected by the Federal Confidentiality of Alcohol and Drug Abuse Patient Records regulations: The Federal rules restrict any use of the information to criminally investigate or prosecute any alcohol or drug abuse patient.[facility] the event this information is protected by the Federal Confidentiality of Alcohol and Drug Abuse Patient Records regulations: The Federal rules restrict any use of the information to criminally investigate or prosecute any alcohol or drug abuse patient.[facility] the event this information is protected by the Federal Confidentiality of Alcohol and Drug Abuse Patient Records regulations: The Federal rules restrict any use of the information to criminally investigate or prosecute any alcohol or drug abuse patient.[facility] the event this information is protected by the Federal Confidentiality of Alcohol and Drug Abuse Patient Records regulations: The Federal rules restrict any use of the information to criminally investigate or prosecute any alcohol or drug abuse patient.[facility] the event this information is protected by the Federal Confidentiality of Alcohol and Drug Abuse Patient Records regulations: The Federal rules restrict any use of the information to criminally investigate or prosecute any alcohol or drug abuse patient.[facility] Hospital[facility] the event this information is protected by the Federal Confidentiality of Alcohol and Drug Abuse Patient Records regulations: The Federal rules restrict any use of the information to criminally investigate or prosecute any alcohol or drug abuse patient.[facility] Hospital[facility] the event this information is protected by the Federal Confidentiality of Alcohol and Drug Abuse Patient Records regulations: The Federal rules restrict any use of the information to criminally investigate or prosecute any alcohol or drug abuse patient.[facility] Hospital[facility] the event this information is protected by the Federal Confidentiality of Alcohol and Drug Abuse Patient Records regulations: The Federal rules restrict any use of the information to criminally investigate or prosecute any alcohol or drug abuse patient.[facility] Hospital[facility] the event this information is protected by the Federal Confidentiality of Alcohol and Drug Abuse Patient Records regulations: The Federal rules restrict any use of the information to criminally investigate or prosecute any alcohol or drug abuse patient.[facility] Hospital[facility] the event this information is protected by the Federal Confidentiality of Alcohol and Drug Abuse Patient Records regulations: The Federal rules restrict any use of the information to criminally investigate or prosecute any alcohol or drug abuse patient.[facility] Hospital[facility] the event this information is protected by the Federal Confidentiality of Alcohol and Drug Abuse Patient Records regulations: The Federal rules restrict any use of the information to criminally investigate or prosecute any alcohol or drug abuse patient.[facility] Hospital[facility] the event this information is protected by the Federal Confidentiality of Alcohol and Drug Abuse Patient Records regulations: The Federal rules restrict any use of the information to criminally investigate or prosecute any alcohol or drug abuse patient.[facility] Hospital[facility] the event this information is protected by the Federal Confidentiality of Alcohol and Drug Abuse Patient Records regulations: The Federal rules restrict any use of the information to criminally investigate or prosecute any alcohol or drug abuse patient.[facility] Hospital[facility] the event this information is protected by the Federal Confidentiality of Alcohol and Drug Abuse Patient Records regulations: The Federal rules restrict any use of the information to criminally investigate or prosecute any alcohol or drug abuse patient.[facility] Hospital[facility] the event this information is protected by the Federal Confidentiality of Alcohol and Drug Abuse Patient Records regulations: The Federal rules restrict any use of the information to criminally investigate or prosecute any alcohol or drug abuse patient.[facility] HospitalIn the event this information is protected by the Federal Confidentiality of Alcohol and Drug Abuse Patient Records regulations: The Federal rules restrict any use of the information to criminally investigate or prosecute any alcohol or drug abuse patient.[facility] HospitalIn the event this information is protected by the Federal Confidentiality of Alcohol and Drug Abuse Patient Records regulations: The Federal rules restrict any use of the information to criminally investigate or prosecute any alcohol or drug abuse patient.[facility] HospitalIn the event this information is protected by the Federal Confidentiality of Alcohol and Drug Abuse Patient Records regulations: The Federal rules restrict any use of the information to criminally investigate or prosecute any alcohol or drug abuse patient.[facility] HospitalIn the event this information is protected by the Federal Confidentiality of Alcohol and Drug Abuse Patient Records regulations: The Federal rules restrict any use of the information to criminally investigate or prosecute any alcohol or drug abuse patient.[facility] HospitalIn the event this information is protected by the Federal Confidentiality of Alcohol and Drug Abuse Patient Records regulations: The Federal rules restrict any use of the information to criminally investigate or prosecute any alcohol or drug abuse patient.[facility] HospitalIn the event this information is protected by the Federal Confidentiality of Alcohol and Drug Abuse Patient Records regulations: The Federal rules restrict any use of the information to criminally investigate or prosecute any alcohol or drug abuse patient.[facility] Reason for Visit (unrecogniz ed section [...] HIGH COMPLEX 45 MINS Sridevi Ocasio MD [address] [place] [address] Noris Willrad, PT [address] [place] [address] Referral ID Status Reason Start Date Expiration Date V isits Requested Visits Authorized [id number] Authorized 07/05/2022 07/05/2023 1 99 Reason Comments Established Patient Reason Comments Patient Request Reason Comments Follow Up Specialty Diagnoses / Procedures Referred By Contac t Referred To Contact Diagnoses Tongue biting Procedures PROVIDER ORDERED FOLLOW UP Selvin Lowe MD [address] [facility] [address] [place] [address] Referral ID Status Reason Start Date Expiration Date V isits Requested Visits Authorized [id number] Closed PCP Requested Referral 10/03/2022 01/01/2023 1 1 Reason Comments Patient Question Reason Onset Date Comments Refill Request 07/30/2023 Care Teams (unrecognized sec tion and content) Clinical Data Assistant Relationship Specialty Start Date End Date Taye Chris Chi PCP - General Gerontology 11/23/14 Clinical Data Assistant Relationship Specialty Start Date End Date Taye, Chris Chi PCP - General Gerontology 11/23/14 Clinical Data Assistant Relationship Specialty Start Date End Date Taye, Chris Chi PCP - General Gerontology 11/23/14 Clinical Data Assistant Relationship Specialty Start Date End Date Taye, Chris Chi PCP - General Gerontology 11/23/14 Clinical Data Assistant Relationship Specialty Start Date End Date Taye, Chris Chi PCP - General Gerontology 11/23/14 Clinical Data Assistant Relationship Specialty Start Date End Date Taye, Chris Chi PCP - General Gerontology 11/23/14 Clinical Data Assistant Relationship Specialty Start Date End Date Taye, Chris Chi PCP - General Gerontology 11/23/14 Clinical Data Assistant Relationship Specialty Start Date End Date Chris Zimmerman Chi PCP - General Gerontology 11/23/14 Clinical Data Assistant Relationship Specialty Start Date End Date Chris Zimmerman Chi PCP - General Gerontology 11/23/14 Clinical Data Assistant Relationship Specialty Start Date End Date Chris Zimmerman Chi PCP - General Gerontology 11/23/14 Clinical Data Assistant Relationship Specialty Start Date End Date Chris Zimmerman Chi PCP - General Gerontology 11/23/14 Clinical Data Assistant Relationship Specialty Start Date End Date Chris Zimmerman Chi PCP - General Gerontology 11/23/14 Clinical Data Assistant Relationship Specialty Start Date End Date Chris Zimmerman Chi PCP - General Gerontology 11/23/14 Clinical Data Assistant Relationship Specialty Start Date End Date Chris Zimmerman Chi PCP - General Gerontology 11/23/14 FOR [...] BE BASED ON THE PRIMARY CLINICAL RECORDS. [facility] [employer] [facility]. provides no warranty or guarantee of the accuracy or completeness of information in this document.
== END | disposition home or self-care (01) ==
LOC: POLAB3 14:55
PROVIDERS: PCP Family Medicine Geriatric Medicine; Visit Provider Family Medicine Geriatric Medicine
DX: E86.0 Dehydration (principal); R53.1 Weakness
CPT/HCPCS: 36415; 80048; 85025

== ENCOUNTER → 2023-08-21 | Outpatient (CLI) | payer MEDICARE, SELFPAY | END | disposition home or self-care (01) | LOC: POLAB3 11:22 | PROVIDERS: PCP Family Medicine Geriatric Medicine; Visit Provider Family Medicine Geriatric Medicine | DX: N39.0 Urinary tract infection, site not specified (principal) | CPT/HCPCS: 87086 ==

== ENCOUNTER 2023-09-05 12:00 | Outpatient (RCR) | payer MEDICARE, SELFPAY ==
--- NOTE | 2023-04-25 17:41 | HP.PTEVAL ---
Patient's Visit Information Visit Information Visit Information: ADDIS CARRENO is a 87 year old F referred to Physical Therapy by Dr. Howard Zimmerman MD with a diagnosis of Cervical Spinal Stenosis. Date of Evaluation: 04/25/23 Physical Therapist: ROCHELLE Palafox Visit Plan Frequency: 2x /Week Duration: 2 Months Plan: 2X/ week for 8 weeks for neck stretching, neck extensor strength, postural exercises, scapular strength, functional balance (compliant and non compliant surfaces and EO.EC), walking with head turns, turning 180 degrees with HEP HEP: supine neck extension into 2 towel rolls and seated scapular retraction with looking straight ahead Subjective Subjective: She is having neck pain and has been having it for a long time. At times the pain is worse. She has tried to do some exercises (stretching)... not sure it worked and tries to keep up with it. Dr Uribe did a catscan and does not know the results yet. She has cracking (sometimes it hurts and other times it doesn't). She has no arm pain. She has neck pain and no headaches. She has some numbness and tingling in her neck. She sleeps fairly well but has to get up to get to the bathroom several times. The pain in her neck does not usually wake her up. She uses a regular size pillow. Sometimes her neck feels tight. Pt reports that her balance is bad and she has had several falls. She reports that she could be just standing and her legs just give out. She reports that she has some LBP. She is a walker but she struggles now to walk a longer distance now because her back hurts more. Pain neck pain: Pain Intensity (Out of 10): 5 Objective Objective: Gait: walks with smaller step length and some scissoring to correct balance. She has fw head and looks down at the floor with some arm swing. Pt does tend to catch her foot with turning 180 degrees but able to correct herself. Pt has more unsteadiness when she walks slower than faster Pt is able to do X 5 heel and toe raises in standing UE MMT R shld flex 7.5 and L 7.9 R shld ABD 8.9 and L 8.9 R Shld ER 7.1 and L 5.9 Bicep DTR 1@/2 LE MMT: R hip flex 10.2 and L 10.4 R knee ext 15.3 and L 15.3 R knee flex 7.4 and L knee flex 5.6 posture: Has a flexed trunk, rounded shoulders and FW head C-spine AROM: Flex 100%, Ext to neural, SB B 25%, Rot B 50% UE AROM: WFL FLex, IR and ER Sit to stand: knees come together.. On first attempt she retro LOB back to the chair with no UE support but did better with no arms and increase weight shift FW on second attmept Supine neck extension into 2 rolled towels in supine X 20 FGA 11 Balance/Special Test Scores Functional Gait Assessment Score: 11 % Disability: 63.3400 Oswestry Neck Score: 9 Goals Goal 1:: I HEP Goal Time Frame: 6-8 Weeks Goal 2:: Decrease neck pain by 50% Goal Time Frame: 6-8 Weeks Goal 3:: Sit with more upright posture and walk with more upright posture Goal Time Frame: 6-8 Weeks Goal 4:: Increase balance to be able to turn 180 degrees without tripping on own feet Rehabilitation Potential Rehabilitation Potential: Good Anticipated Interventions Patient/Client Instruction: Educate patient on: Condition and Plan of Care For the Purpose of:: To decrease pain, To increase ROM, To improve nutrient delivery to tissue, To improve muscle performance and motor function, To improve ability to perform ADL's, To increase tolerance to activity/condition/position, To improve performance and independence with ADL's, To decrease level of supervision to perform tasks, To improve ability of physical actions for home/community/work/leisure, To improve gait and locomotor functions, To improve health of tissue, To decrease soft tissue restriction and To increase flexibility/ROM Therapeutic Exercise to Include: Strength training, Endurance training, Balance training, Coordination, Postural training, Flexibilty training, Gait and locomotor training, Neuromotor development, Passive ROM, Active ROM, Dynamic Lumbar Stabilization and Scapular Strength/Stabilization For the Purpose of:: To decrease pain, To increase ROM, To improve nutrient delivery to tissue, To improve muscle performance and motor function, To improve ability to perform ADL's, To increase tolerance to activity/condition/position, To improve ability of physical actions for home/community/work/leisure, To improve gait and locomotor functions, To improve health of tissue, To decrease soft tissue restriction, To increase flexibility/ROM, To improve endurance, To improve balance and To improve safety with gait Functional Training to Include: Gait training For the Purpose of:: To improve gait and locomotor functions, To improve balance and To improve safety with gait Manual Therapy Techniques to Include: Passive ROM and Soft tissue mobilization For the Purpose of:: To decrease pain, To increase ROM, To improve nutrient delivery to tissue, To improve muscle performance and motor function, To improve ability to perform ADL's, To improve health of tissue, To decrease soft tissue restriction and To increase flexibility/ROM Text: Thank you for the opportunity to evaluate your patient. For Medicare and Medicare HMO plans, please review the plan of care and approve it. It will need to be FAXED BACK to us at [phone] for Medicare purposes. For Medicare only, by signing this I certify the plan of care. Please let me know if there are questions or concerns regarding this plan of care. Physician Signature: Date:
--- NOTE | 2023-05-30 12:50 | HP.PTREVAL ---
Re-Evaluation Intro: Dr. Howard Zimmerman MD, It has been my pleasure to treat ADDIS CARRENO over the last 7 visits for Cervical Spinal Stenosis. Please see the progress note below for an update on the physical therapy plan of care! Subjective Subjective: Pt reports that her neck feels better overall. Pt feels that she back slid a little bit. Pt reports that her pain is better and stiffness. She uses the walker because she is so tired and weakness in her legs and no energy. She is not driving cause she has no energy and she did go left of center. Her son brings her to appointments. She is sleeping good at night. Objective Objective/Function: Pt still has a lot of FW head and flexion of the neck with sitting posture. She is walking with her rolling walker and picking it up at times. Will continue with POC and add LE.additional balance and gait Plan Plan Plan: Pending neck pain- incorporate functional balance next week into visit. 2X/ week for 8 weeks for neck stretching, neck extensor strength, postural exercises, scapular strength, functional balance (compliant and non compliant surfaces and EO.EC), walking with head turns, turning 180 degrees with HEP HEP: supine neck extension into 2 towel rolls and seated scapular retraction with looking straight ahead Balance/Gait/Functional tests Balance/Special Test Scores Functional Gait Assessment Score: 11 % Disability: 63.3400 Oswestry Neck Score: 19 Goals Goals Goal 1:: I HEP Goal Time Frame: 6-8 Weeks Goal Progress: Progressing Goal 2:: Decrease neck pain by 50% Goal Time Frame: 6-8 Weeks Goal Progress: Progressing Goal 3:: Sit with more upright posture and walk with more upright posture Goal Time Frame: 6-8 Weeks Goal Progress: Progressing Goal 4:: Increase balance to be able to turn 180 degrees without tripping on own feet Anticipated Interventions Anticipated Interventions Patient/Client Instruction: Educate patient on: Condition and Plan of Care For the Purpose of:: To decrease pain, To increase ROM, To improve nutrient delivery to tissue, To improve muscle performance and motor function, To improve ability to perform ADL's, To increase tolerance to activity/condition/position, To improve performance and independence with ADL's, To decrease level of supervision to perform tasks, To improve ability of physical actions for home/community/work/leisure, To improve gait and locomotor functions, To improve health of tissue, To decrease soft tissue restriction and To increase flexibility/ROM Therapeutic Exercise to Include: Strength training, Endurance training, Balance training, Coordination, Postural training, Flexibilty training, Gait and locomotor training, Neuromotor development, Passive ROM, Active ROM, Dynamic Lumbar Stabilization and Scapular Strength/Stabilization For the Purpose of:: To decrease pain, To increase ROM, To improve nutrient delivery to tissue, To improve muscle performance and motor function, To improve ability to perform ADL's, To increase tolerance to activity/condition/position, To improve ability of physical actions for home/community/work/leisure, To improve gait and locomotor functions, To improve health of tissue, To decrease soft tissue restriction, To increase flexibility/ROM, To improve endurance, To improve balance and To improve safety with gait Functional Training to Include: Gait training For the Purpose of:: To improve gait and locomotor functions, To improve balance and To improve safety with gait Manual Therapy Techniques to Include: Passive ROM and Soft tissue mobilization For the Purpose of:: To decrease pain, To increase ROM, To improve nutrient delivery to tissue, To improve muscle performance and motor function, To improve ability to perform ADL's, To improve health of tissue, To decrease soft tissue restriction and To increase flexibility/ROM Re-Evaluation Ending Re-evaluation ending: Please do not hesitate to contact me at [phone] by phone or if you have questions or concerns regarding this new plan of care! Sincerely, ROCHELLE Palafox
--- NOTE | 2023-06-28 08:58 | HP.PTREVAL ---
Re-Evaluation Intro: Dr. Howard Zimmerman MD, It has been my pleasure to treat ADDIS CARRENO over the last 13 visits for Cervical Spinal Stenosis/PD/COVID. Please see the progress note below for an update on the physical therapy plan of care! Subjective Subjective: Pt came in with new order for PD/Post COVID order. Pt feels like she is not doing too good. Her balance is off, she feels weak and no strength and no energy. She is taking naps at home. She slept till 12:30 the one morning. She fell about a week ago and she was in the middle of kitchen floor and her legs gave out. She has a little bump on her knee and elbow but fine otherwise. She does not drive. He goal is to come back in through [facility] and work out again. She is able to go up and down the stairs ok. She has one floor condo. Objective Objective/Function: Gait: Walks with increase veering and scissoring without a cane. She can walk a few steps and then catches her R foot on the floor. The longer she walks the worse her catching her R foot becomes Pt struggles with toe raises on the R (R gastroc is tight). She has weakness present with heel raises but it is equal B LE MMT: R hip flex 10.6 and L 9.5 R knee ext 14.8 and L 16.3 R knee flex 8.8 and L 8.5 R hip abd 9 and L 9 Bridge full ROM Pt is slow with bed mobility but able to do it Standing heel and toe raises: FGA: 10 Stairs: up and down recip with 2 hand rails.... pt was fatigued after the stairs especially with the R LE Plan Plan Plan: 2X/ week for 8 weeks for LE strength, R DF gastroc stretching and strength of R DF, gait training and endurance for advancement of the R LE, endurance activities, balance activities to improve overall function. Continue with above neck protocol and postural strengthening with HEP. Balance/Gait/Functional tests Balance/Special Test Scores Functional Gait Assessment Score: 10 % Disability: 66.6700 Oswestry Neck Score: 19 Lower Extremity Functional Score: 34 Goals Goals Goal 1:: Be able to walk 150 feet with a straight cane without tripping on her R LE or veering Goal Time Frame: 6-8 Weeks Goal Progress: Progressing Goal 2:: Decrease neck pain by 50% Goal Time Frame: 6-8 Weeks Goal Progress: Progressing Goal 3:: Sit with more upright posture and walk with more upright posture Goal Time Frame: 6-8 Weeks Goal Progress: Progressing Goal 4:: Increase balance to be able to turn 180 degrees without tripping on own feet Goal Time Frame: 6-8 Weeks Goal 5:: Increase LE strength (at time of the eval: LE MMT: R hip flex 10.6 and L 9.5 R knee ext 14.8 and L 16.3 R knee flex 8.8 and L 8.5 R hip abd 9 and L 9 Bridge full ROM) Goal Time Frame: 6-8 Weeks Goal 6:: Increase balance (score on FGA was 10 at eval) Goal Time Frame: 6-8 Weeks Anticipated Interventions Anticipated Interventions Patient/Client Instruction: Educate patient on: Condition and Plan of Care For the Purpose of:: To decrease pain, To increase ROM, To improve nutrient delivery to tissue, To improve muscle performance and motor function, To improve ability to perform ADL's, To increase tolerance to activity/condition/position, To improve performance and independence with ADL's, To decrease level of supervision to perform tasks, To improve ability of physical actions for home/community/work/leisure, To improve gait and locomotor functions, To improve health of tissue, To decrease soft tissue restriction and To increase flexibility/ROM Therapeutic Exercise to Include: Strength training, Endurance training, Balance training, Coordination, Postural training, Flexibilty training, Gait and locomotor training, Neuromotor development, Passive ROM, Active ROM, Dynamic Lumbar Stabilization and Scapular Strength/Stabilization For the Purpose of:: To decrease pain, To increase ROM, To improve nutrient delivery to tissue, To improve muscle performance and motor function, To improve ability to perform ADL's, To increase tolerance to activity/condition/position, To improve ability of physical actions for home/community/work/leisure, To improve gait and locomotor functions, To improve health of tissue, To decrease soft tissue restriction, To increase flexibility/ROM, To improve endurance, To improve balance and To improve safety with gait Functional Training to Include: Gait training For the Purpose of:: To improve gait and locomotor functions, To improve balance and To improve safety with gait Manual Therapy Techniques to Include: Passive ROM and Soft tissue mobilization For the Purpose of:: To decrease pain, To increase ROM, To improve nutrient delivery to tissue, To improve muscle performance and motor function, To improve ability to perform ADL's, To improve health of tissue, To decrease soft tissue restriction and To increase flexibility/ROM Re-Evaluation Ending Re-evaluation ending: Please do not hesitate to contact me at [phone] by phone or if you have questions or concerns regarding this new plan of care! Sincerely, Marbella Doss, MPT
--- NOTE | 2023-08-22 12:33 | HP.PTREVAL ---
Re-Evaluation Intro: Dr. Howard Zimmerman MD, It has been my pleasure to treat ADDIS CARRENO over the last 26 visits for Cervical Spinal Stenosis/PD/COVID. Please see the progress note below for an update on the physical therapy plan of care! Subjective Subjective: Pt feels like she is stronger. She feels her health is poor. She is not sure if her balance has gotten better. She is still struggling with any quick movement she gets dizzy and lightheaded. Her energy level is a little better. She is using the rollator in the house. She has an ache in her neck still. She still trips on her r FOOT AT TIMES... Objective Objective/Function: Gait: walks with rollator with independence Walks with a single point cane MMT: R hip flex 18.2 and L 17.8 R knee ext 22.1 and L 18.5 R knee flex 13.8 and L 11.3 R hip abd 10.3 and L 11.3 Plan Plan Plan: Continue to work on balance, gait with a cane and a gait belt, gaining confidence in indep gym routine, curb steps, continued functional strength, posture and can do heat to neck Balance/Gait/Functional tests Balance/Special Test Scores Functional Gait Assessment Score: 12 % Disability: 60.0000 Oswestry Neck Score: 12 Lower Extremity Functional Score: 57 Goals Goals Goal 1:: Be able to walk 150 feet with a straight cane without tripping on her R LE or veering Goal Time Frame: 6-8 Weeks Goal Progress: Progressing Goal 2:: Decrease neck pain by 50% Goal Time Frame: 6-8 Weeks Goal Progress: Progressing Goal 3:: Be able to walk 75 feet with straight cane without tripping on her R foot with min A Goal Time Frame: 6-8 Weeks Goal Progress: Progressing Goal 4:: Increase balance to be able to turn 180 degrees without tripping on own feet Goal Time Frame: 6-8 Weeks Goal Progress: Progressing Goal 5:: Increase LE strength (at time of the eval: LE MMT: R hip flex 10.6 and L 9.5 R knee ext 14.8 and L 16.3 R knee flex 8.8 and L 8.5 R hip abd 9 and L 9 Bridge full ROM) Goal Time Frame: 6-8 Weeks Goal Progress: Progressing Goal 6:: Increase balance (score on FGA was 10 at eval) Goal Time Frame: 6-8 Weeks Goal Progress: Progressing Anticipated Interventions Anticipated Interventions Patient/Client Instruction: Educate patient on: Condition and Plan of Care For the Purpose of:: To decrease pain, To increase ROM, To improve nutrient delivery to tissue, To improve muscle performance and motor function, To improve ability to perform ADL's, To increase tolerance to activity/condition/position, To improve performance and independence with ADL's, To decrease level of supervision to perform tasks, To improve ability of physical actions for home/community/work/leisure, To improve gait and locomotor functions, To improve health of tissue, To decrease soft tissue restriction and To increase flexibility/ROM Therapeutic Exercise to Include: Strength training, Endurance training, Balance training, Coordination, Postural training, Flexibilty training, Gait and locomotor training, Neuromotor development, Passive ROM, Active ROM, Dynamic Lumbar Stabilization and Scapular Strength/Stabilization For the Purpose of:: To decrease pain, To increase ROM, To improve nutrient delivery to tissue, To improve muscle performance and motor function, To improve ability to perform ADL's, To increase tolerance to activity/condition/position, To improve ability of physical actions for home/community/work/leisure, To improve gait and locomotor functions, To improve health of tissue, To decrease soft tissue restriction, To increase flexibility/ROM, To improve endurance, To improve balance and To improve safety with gait Functional Training to Include: Gait training For the Purpose of:: To improve gait and locomotor functions, To improve balance and To improve safety with gait Manual Therapy Techniques to Include: Passive ROM and Soft tissue mobilization For the Purpose of:: To decrease pain, To increase ROM, To improve nutrient delivery to tissue, To improve muscle performance and motor function, To improve ability to perform ADL's, To improve health of tissue, To decrease soft tissue restriction and To increase flexibility/ROM Re-Evaluation Ending Re-evaluation ending: Please do not hesitate to contact me at [phone] by phone or if you have questions or concerns regarding this new plan of care! Sincerely, ROCHELLE Palafox
== END 2023-09-05 19:00 | disposition home or self-care (01) ==
LOC: PT 12:00
PROVIDERS: PCP Family Medicine Geriatric Medicine; Visit Provider Family Medicine Geriatric Medicine
DX: M48.02 Spinal stenosis, cervical region (principal)
CPT/HCPCS: 97110; 97116; 97140; 97161; 97162; 97164; 97530

== ENCOUNTER 2023-09-08 09:35 | Observation (INO) | payer MEDICARE, SELFPAY ==
[2023-09-08] VITALS (11 sets, daily range): BP systolic 130–172; BP diastolic 64–124; PULSE 71–92; RESP 12–19; TEMP 36.1–37; O2SAT 93–98; BMI 17.2
--- NOTE | 2023-09-08 10:21 | CT_ITS ---
HISTORY: AMS. TECHNIQUE: Multiple axial images were obtained of the head without intravenous contrast. A radiation dose optimization technique was used for this scan. 234 images. COMPARISON: 07/28/2023. FINDINGS: BRAIN PARENCHYMA: Multiple foci and zones of low attenuation in the bilateral cerebral white matter compatible with chronic small vessel ischemic gliosis. No acute intra-axial hemorrhage identified. CSF SPACES: Generalized volume loss. No midline shift or other significant mass effect. No acute extra-axial hemorrhage seen. OTHER: Intact calvarium. No significant air fluid levels in the paranasal sinuses or mastoid air cells. Bilateral lens resections. CT/Brain/Head without Contrast IMPRESSION: No acute intracranial process identified. Chronic involutional and white matter changes. Electronically Signed: Ree Albright MD at 11:18 EDT ,
--- NOTE | 2023-09-08 10:22 | EDS_ITS ---
HPI History of Present Illness Chief Complaint: Syncope Narrative Narrative: 88-year-old female with history of Parkinson's disease and TIA presenting with altered mental status. Apparently she was found unconscious on the commode today. She has hand Rails and was leaning on this and unresponsive. She was found by her son. He states that she has home health care but does not have any nighttime health care and has about 12 hours of lapse of care overnight. He does state that she has not been able to talk most mornings over the last several months. Recently seen for TIA. They believe that the nonverbal aspect is due to Parkinson's disease. She does talk intermittently. This son states she fell a couple days ago and hurt her right hip. They state that she does bruise pretty easily and they do not see signs of trauma. They are unsure if she hit her head. [facility] Medical History CKD (chronic kidney disease), stage II History of atrial myxoma Hyperlipidemia Hypertension Lymphoma Nonrheumatic mitral (valve) prolapse Nonrheumatic mitral valve regurgitation Nonrheumatic tricuspid valve regurgitation Parkinsons disease Parotid tumor Premature atrial contractions Premature ventricular contraction Home Medications multivitamin 1 tab PO DAILY vitamin 11/20/18 [History Last Taken 01/15/23] carbidopa 25 mg-levodopa 100 mg tablet 2 tab PO TID parkinsons 01/05/23 [History Last Taken 06/28/23 16:20] midodrine 5 mg tablet 5 mg PO TID blood pressure 06/28/23 [History Last Taken 06/28/23 16:20] aspirin 81 mg chewable tablet 81 mg PO BREAKFAST 1 month #30 tabs 06/29/23 [Rx Last Taken Unknown] atorvastatin 40 mg tablet 40 mg PO QHS 1 month #30 tabs 06/29/23 [Rx Last Taken Unknown] VITAL TEARS DRY EYES 09/08/23 [History Last Taken Unknown] ascorbic acid (vitamin C) 1,000 mg tablet,extended release (C Complex) 1,000 mg PO DAILY 09/08/23 [History Last Taken Unknown] cyanocobalamin (vitamin B-12) 1,000 mcg sublingual tablet 1,000 mcg sublingual DAILY 09/08/23 [History Last Taken Unknown] famotidine 40 mg tablet 40 mg PO DAILY 09/08/23 [History Last Taken Unknown] Allergy/AdvReac Type Severity Reaction Status Date / Time Penicillins Allergy Rash Verified 07/28/23 09:19 tramadol AdvReac Other Verified 07/28/23 09:19 Family History Father Heart disease CHF (congestive heart failure) Mother No problems noted. Surgical History History of laparoscopic cholecystectomy History of splenectomy Social History household members: none Smoking Status: Never smoker alcohol intake: current details: occasional substance use type: does not use EXAM Physical Exam Const Vital Signs: 09/08/23 09:36 09/08/23 09:35 09/08/23 09:47 Temperature 96.9 F L Temperature Source Temporal Pulse Rate 72 Pulse Rate [Standing (for 1 minute prior to obtaining)] Respiratory Rate 16 19 H Respiratory Pattern Blood Pressure 156/99 H Blood Pressure [Lying] Blood Pressure [Sitting (for 1 minute prior to obtaining)] Blood Pressure Mean 118 Blood Pressure Mean [Lying] Blood Pressure Mean [Sitting (for 1 minute prior to obtaining)] Pulse Ox 98 Oxygen Delivery Method Room Air 09/08/23 10:14 09/08/23 10:17 09/08/23 10:48 Temperature Temperature Source Pulse Rate Pulse Rate [Standing (for 1 minute prior to obtaining)] 89 Respiratory Rate Respiratory Pattern Normal Blood Pressure Blood Pressure [Lying] 154/97 H Blood Pressure [Sitting (for 1 minute prior to obtaining)] 133/100 H Blood Pressure Mean Blood Pressure Mean [Lying] 116 Blood Pressure Mean [Sitting (for 1 minute prior to obtaining)] 111 Pulse Ox 97 Oxygen Delivery Method Room Air 09/08/23 11:35 09/08/23 13:00 Temperature Temperature Source Pulse Rate 71 78 Pulse Rate [Standing (for 1 minute prior to obtaining)] Respiratory Rate 12 12 Respiratory Pattern Blood Pressure 167/95 H 159/105 H Blood Pressure [Lying] Blood Pressure [Sitting (for 1 minute prior to obtaining)] Blood Pressure Mean 119 123 Blood Pressure Mean [Lying] Blood Pressure Mean [Sitting (for 1 minute prior to obtaining)] Pulse Ox 96 95 Oxygen Delivery Method Room Air Room Air MDM MDM MDM Narrative Medical decision making narrative: Patient presenting after found unresponsive on toilet. Per son patient has had worsening in functional status and has home health care most of the day except for at nighttime. Patient has had a couple of falls at home and has history of right hip contusion a few days ago. It is unclear if she hit her head but she has not any evidence of trauma. Patient is unable to speak today which the son states is baseline for her and she has not seek most mornings and sometimes in speak at all. Has a history of Parkinson's disease and TIA. On examination she is able to move all 4 extremities. She does not appear to have any tenderness. Will see evidence of any head trauma. Given that the patient is altered we will obtain a CT brain to rule intracranial hemorrhage or other acute abnormality. Patient cannot be cleared by Nexus criteria so we will obtain a CT of the cervical spine as well. CBC will be obtained to assess white blood cell count, hemoglobin, platelets. BMP to assess renal function, electrolytes, glucose. High-sensitivity troponin EKG to assess for ischemia/dysrhythmia. CPK to assess for rhabdomyolysis. CBC shows leukocytosis of 14.5 however this is her baseline. Hemoglobin 12.8. Platelets are normal 329. Renal function is near baseline at 1.23. Electrolytes normal. High-sensitivity troponin is 7. CPK is 65. EKG on my interpretation shows a normal sinus rhythm with a ventricular rate of 72 bpm without sign of ischemic change. Right hip x-ray remained normal difficulty urine right hip fracture and is negative. Radiology interprets this and agrees. CT brain and cervical spine are negative. Chest x-ray my interpretation shows no acute cardiopulmonary process. Radiology interprets this is bibasilar opacities versus infiltrates versus inflammation. Patient is not hypoxic, tachypneic. She is afebrile. Family history discussed with both her son and daughter at length that she would not benefit from inpatient care given she cannot ambulate and she has 12 hours at night where she has not been observed and does not have healthcare. Son was adamant that he wanted to try to get her home and after we try to get the patient up she could not ambulate or support her own weight. At this point nursing staff came to me and stated that the patient was to be admitted and her son. I discussed with the hospitalist. Impression: 1. Debility 2. Falls 3. Right hip contusion sign 4. Closed head injury Lab Data Labs: Laboratory Results - last 24 hr 09/08/23 10:12 WBC 14.5 H RBC 4.34 Hgb 12.8 Hct 40.8 MCV 94.0 MCH 29.5 MCHC 31.4 L RDW Std Deviation 46.9 H RDW Coeff of [place] 13.5 Plt Count 329 MPV 9.7 Immature Gran % (Auto) 0.400 Neut % (Auto) 51.3 Lymph % (Auto) 35.9 Charles % (Auto) 7.5 Eos % (Auto) 2.5 Baso % (Auto) 2.4 H Absolute Neuts (auto) 7.5 Absolute Lymphs (auto) 5.22 H Nucleated RBC % 0 Differential Comment SCANNED Sodium 139 Potassium 4.4 Chloride 106 Carbon Dioxide 26.0 Anion Gap 7 BUN 23 H Creatinine 1.23 H Estim Creat Clear Calc 21.72 Est GFR (MDRD) Af Amer 53 L Est GFR (MDRD) Non-Af 44 L BUN/Creatinine Ratio 18.7 Glucose 123 H Calcium 9.3 Total Creatine Kinase 65 Troponin I High Sens 7 Radiography Diagnostic Testing: Clinical Impression(s) from Imaging Studies Brain CT 09/08/23 10:21 IMPRESSION: No acute intracranial process identified. Chronic involutional and white matter changes. Electronically Signed: Ree Albright MD at 11:18 EDT , Cervical Spine CT 09/08/23 10:23 IMPRESSION: No evidence for acute fracture or dislocation in the cervical spine. Multilevel degenerative change. Electronically Signed: Ree Albright MD at 11:26 EDT , Chest X-Ray 09/08/23 10:30 IMPRESSION: Bibasilar opacities, which may be infectious or inflammatory. Recommend follow-up to resolution. Electronically Signed: Ree Albright MD at 11:15 EDT , Hip/Pelvis X-Ray 09/08/23 11:00 IMPRESSION: No acute displaced fracture or dislocation identified. Electronically Signed: Ree Albright MD at 11:27 EDT , Discharge Plan Triage Chief Complaint: Syncope ED Provider: Germán Benson Dx/Rx/DC Orders Primary Care Provider: Howard Zimmerman Chi Disposition Disposition: Home, Self Care
[2023-09-08 10:23] LABS: Absolute Lymphocyte Count 5.22 X10^3/uL (0.83-4.51); Absolute Neutrophil Count 7.5 X10^3/uL (2.0-7.7); Basophil# 0.35 X10^3/uL; Basophil% 2.4 % (0-1); Eosinophil# 0.36 X10^3/uL; Eosinophils% 2.5 % (0-5); Hematocrit 40.8 % (37-47); Hemoglobin 12.8 g/dL (12.0-15.0); Lymphocyte # 5.22 X10^3/ul (0.83-4.51); Lymphocyte % 35.9 % (19-41); Mean Corp Hgb Conc 31.4 g/dL (32-36); Mean Corpuscular Hgb 29.5 pg (27.0-32.0); Mean Platelet Vol. 9.7 fl (6.2-12.0); Monocyte# 1.09 X10^3/uL; Monocyte% 7.5 % (0-10); NRBC Flagged by Analyzer 0 % (0-5); Neutrophil # 7.45 X10^3/uL (2.7-7.7); Neutrophil % 51.3 % (47-70); POSITIVE DIFFERENTIAL YES; Platelet Count 329 K/mm3 (150-450); RBC Distribution Width CV 13.5 % (11.6-14.6); RBC Distribution Width SD 46.9 fl (35.1-43.9); Red Blood Count 4.34 M/mm3 (4.2-5.4); White Blood Count 14.5 K/mm3 (4.4-11.0)
--- NOTE | 2023-09-08 10:23 | CT_ITS ---
HISTORY: AMS. TECHNIQUE: Helically acquired images were obtained of the cervical spine without contrast. 2D reformatted images were reviewed. A radiation dose optimization technique was used for this scan. 398 images. COMPARISON: CTA neck 06/28/2023. FINDINGS: VERTEBRAE: Vertebral body heights maintained. Generalized osteopenia. ALIGNMENT: Chronic mild anterolisthesis of C3-4. Mild levocurvature. INTERVERTEBRAL DISCS: Severe intervertebral disc space narrowing with degenerative endplate change of C4-5, C5-6, and C6-7 with posterior disc bulge osteophyte complexes resulting in moderate central canal stenosis. Bilateral foraminal narrowing. SOFT TISSUES: No prevertebral soft tissue swelling. CT/Spine Cervical without Contras IMPRESSION: No evidence for acute fracture or dislocation in the cervical spine. Multilevel degenerative change. Electronically Signed: Ree Albright MD at 11:26 EDT ,
--- NOTE | 2023-09-08 10:30 | RAD_ITS ---
HISTORY: chest pain. TECHNIQUE: XR Chest 1 View. COMPARISON: 06/28/2023. FINDINGS: CARDIOMEDIASTINAL BORDERS: Cardiac silhouette within normal limits in size. Mediastinal contour unremarkable with midline sternotomy and calcification of the aortic knob. LUNGS: Mild bibasilar opacities with a slightly nodular configuration on the left. PLEURA: No pleural effusion or pneumothorax seen. OSSEOUS STRUCTURES: Degenerative change. RAD/Chest 1 View (Portable) IMPRESSION: Bibasilar opacities, which may be infectious or inflammatory. Recommend follow-up to resolution. Electronically Signed: Ree Albright MD at 11:15 EDT ,
[2023-09-08 10:32] LABS: Differential Indicated SCAN CRITERIA MET
[2023-09-08 10:36] LABS: Anion Gap 7 (5-15); BUN 23 mg/dL (7-18); BUN/Creat Ratio 18.7 RATIO (10-20); Calcium,Total 9.3 mg/dL (8.5-10.1); Chloride 106 mmol/L (98-107); Creatinine, Serum 1.23 mg/dL (0.55-1.02); EST Glomerular Filtration Rate 44 mL/min (>60); Est Glom Filt Rate - Afr Amer 53 mL/min (>60); Estimated Creatinine Clearance 21.72 ml/min; Glucose 123 mg/dL (74-106); Potassium 4.4 mmol/L (3.5-5.1); Sodium Level 139 mmol/L (136-145); Troponin-I HS 7 pg/mL (3.0-54.0)
[2023-09-08 10:51] LABS: Differential Comment SCANNED
--- NOTE | 2023-09-08 11:00 | RAD_ITS ---
HISTORY: pain. TECHNIQUE: XR Hip Unilateral with Pelvis when performed; 2-3 Views. COMPARISON: None. FINDINGS: OSSEOUS STRUCTURES: No acute displaced fracture identified. Note that overlapping bowel shadows may obscure osseous detail. Mineralization unremarkable. JOINT SPACES: No dislocation. Mild degenerative changes of the hips. RAD/HIP, UNI W/ Pelvis 2-3 Views IMPRESSION: No acute displaced fracture or dislocation identified. Electronically Signed: Ree Albright MD at 11:27 EDT ,
[2023-09-08 11:02] LABS: CPK Total, Creatine Kinase 65 U/L (26-192)
--- NOTE | 2023-09-08 13:01 | ED.RN ---
This RN and Riky Rn went to attempt to ambulate patient as she is being discharged. Pt. is not able to ambulate at all, she cannot hold herself up and it weak. Dr. Benson notified, hospitalist paged.
[2023-09-08] MEDS: 0.9% Normal Saline (1000mL) 1,000 ML 75 ML IV (15:35)
--- NOTE | 2023-09-08 15:46 | HP.PCM.HOS_ITS ---
HPI - General General Date of Admission: 09/08/23 Date of Service: 09/08/23 Chief Complaint: Debility, weakness HPI Narrative ADDIS CARRENO, is a 88 F who presents to the emergency room at [facility] after being brought in by squad, she was found in her bathroom sitting on her commode leaning up against the wall according to her family. Patient has a history of Parkinson's disease and has caregivers during the day but no caregivers at night. It is unknown how long the patient was actually sitting on the commode. Family is present in the room during my examination, patient only says a few words and is also hard of hearing. Labs obtained in the emergency room showed an elevated white blood cell count at 14.5, creatinine was 1.23 and BUN was 23. At the time of my dictation, her urinalysis is pending. Patient will be placed in observation status on MedSurg 3, she will be seen by PT and OT, she will need temporary placement in a correction facility, I talked to the family today they prefer TCU if possible. I talked with dialysis social worker about it also. [facility] Medical History CKD (chronic kidney disease), stage II History of atrial myxoma Hyperlipidemia Hypertension Lymphoma Nonrheumatic mitral (valve) prolapse Nonrheumatic mitral valve regurgitation Nonrheumatic tricuspid valve regurgitation Parkinsons disease Parotid tumor Premature atrial contractions Premature ventricular contraction Home Medications multivitamin 1 tab PO DAILY vitamin 11/20/18 [History Last Taken 01/15/23] carbidopa 25 mg-levodopa 100 mg tablet 2 tab PO TID parkinsons 01/05/23 [History Last Taken 06/28/23 16:20] midodrine 5 mg tablet 5 mg PO TID blood pressure 06/28/23 [History Last Taken 06/28/23 16:20] aspirin 81 mg chewable tablet 81 mg PO BREAKFAST 1 month #30 tabs 06/29/23 [Rx Last Taken Unknown] atorvastatin 40 mg tablet 40 mg PO QHS 1 month #30 tabs 06/29/23 [Rx Last Taken Unknown] VITAL TEARS DRY EYES 09/08/23 [History Last Taken Unknown] ascorbic acid (vitamin C) 1,000 mg tablet,extended release (C Complex) 1,000 mg PO DAILY 09/08/23 [History Last Taken Unknown] cyanocobalamin (vitamin B-12) 1,000 mcg sublingual tablet 1,000 mcg sublingual DAILY 09/08/23 [History Last Taken Unknown] famotidine 40 mg tablet 40 mg PO DAILY 09/08/23 [History Last Taken Unknown] Allergy/AdvReac Type Severity Reaction Status Date / Time Penicillins Allergy Rash Verified 07/28/23 09:19 tramadol AdvReac Other Verified 07/28/23 09:19 Family History Father Heart disease CHF (congestive heart failure) Mother No problems noted. Surgical History History of laparoscopic cholecystectomy History of splenectomy Social History household members: none Smoking Status: Never smoker alcohol intake: current details: occasional substance use type: does not use ROS ROS Narrative Review of systems was unobtainable due to hearing deficit and mild cognitive im pairment due to Parkinson's disease Vital Signs Vital Signs Vital Signs: 09/08/23 09:36 09/08/23 09:35 09/08/23 09:47 Temperature 96.9 F L Temperature Source Temporal Pulse Rate 72 Pulse Rate [Standing (for 1 minute prior to obtaining)] Respiratory Rate 16 19 H Respiratory Pattern Blood Pressure 156/99 H Blood Pressure [Lying] Blood Pressure [Sitting (for 1 minute prior to obtaining)] Blood Pressure Mean 118 Blood Pressure Mean [Lying] Blood Pressure Mean [Sitting (for 1 minute prior to obtaining)] Pulse Ox 98 Oxygen Delivery Method Room Air 09/08/23 10:14 09/08/23 10:17 09/08/23 10:48 Temperature Temperature Source Pulse Rate Pulse Rate [Standing (for 1 minute prior to obtaining)] 89 Respiratory Rate Respiratory Pattern Normal Blood Pressure Blood Pressure [Lying] 154/97 H Blood Pressure [Sitting (for 1 minute prior to obtaining)] 133/100 H Blood Pressure Mean Blood Pressure Mean [Lying] 116 Blood Pressure Mean [Sitting (for 1 minute prior to obtaining)] 111 Pulse Ox 97 Oxygen Delivery Method Room Air 09/08/23 11:35 09/08/23 13:00 09/08/23 13:40 Temperature 98.4 F Temperature Source Pulse Rate 71 78 83 Pulse Rate [Standing (for 1 minute prior to obtaining)] Respiratory Rate 12 12 12 Respiratory Pattern Blood Pressure 167/95 H 159/105 H 146/98 H Blood Pressure [Lying] Blood Pressure [Sitting (for 1 minute prior to obtaining)] Blood Pressure Mean 119 123 114 Blood Pressure Mean [Lying] Blood Pressure Mean [Sitting (for 1 minute prior to obtaining)] Pulse Ox 96 95 95 Oxygen Delivery Method Room Air Room Air Weight Weight: 39.916 kg Body Mass Index (BMI) 17.2 Physical Exam Const alert, oriented x3 and no apparent distress Constitutional Narrative: Patient appears cachectic, she is extremely hard of hearing General Appearance: cooperative, well kempt and well developed Orientation / Consciousness: awake, oriented to person and oriented to place HEENT normocephalic, head/scalp atraumatic and moist oral mucous membranes HEENT Narrative: Extremely hard of hearing Eyes PERRL, EOMs intact bilaterally and conjunctivae normal Neck supple, no JVD, thyroid normal and no carotid bruits General: trachea midline Resp normal respiratory effort, no retractions, no use of accessory muscles and clear to auscultation bilaterally Auscultation: Negative for rales, rhonchi or wheezes Cardio S1 normal heart sound, S2 normal heart sound, no murmurs, no rub and no gallops Cardio Narrative: Heart rate and rhythm is irregular GI normal to inspection, nondistended, normoactive bowel sounds, soft to palpation, non-tender and non-distended Extremity no clubbing, cyanosis or edema Skin no rashes or lesions noted General Skin Exam: no breakdown Neuro CN's II-XII intact bilaterally, moves all extremities, no focal motor deficits and no sensory deficits noted Neuro Narrative: Patient only says a few words, she does not carry on a complete conversation. Sensorium / Orientation: awake, alert, oriented to person and oriented to place Psych Psych Narrative: Patient has flat affect Results Lab / Micro Data 09/08/23 10:12 09/08/23 10:12 Labs: Laboratory Results - last 24 hr 09/08/23 10:12: WBC 14.5 H, RBC 4.34, Hgb 12.8, Hct 40.8, MCV 94.0, MCH 29.5, MCHC 31.4 L, RDW Std Deviation 46.9 H, RDW Coeff of [place] 13.5, Plt Count 329, MPV 9.7, Immature Gran % (Auto) 0.400, Neut % (Auto) 51.3, Lymph % (Auto) 35.9, [place] % (Auto) 7.5, Eos % (Auto) 2.5, Baso % (Auto) 2.4 H, Absolute Neuts (auto) 7.5, Absolute Lymphs (auto) 5.22 H, Nucleated RBC % 0, Differential Comment SCANNED, Sodium 139, Potassium 4.4, Chloride 106, Carbon Dioxide 26.0, Anion Gap 7, BUN 23 H, Creatinine 1.23 H, Estim Creat Clear Calc 21.72, Est GFR (MDRD) Af Amer 53 L, Est GFR (MDRD) Non-Af 44 L, BUN/Creatinine Ratio 18.7, Glucose 123 H, Calcium 9.3, Total Creatine Kinase 65, Troponin I High Sens 7 Imaging Radiology Impression Brain CT 09/08/23 10:21 IMPRESSION: No acute intracranial process identified. Chronic involutional and white matter changes. Electronically Signed: Ree Albright MD at 11:18 EDT , Cervical Spine CT 09/08/23 10:23 IMPRESSION: No evidence for acute fracture or dislocation in the cervical spine. Multilevel degenerative change. Electronically Signed: Ree Albright MD at 11:26 EDT , Chest X-Ray 09/08/23 10:30 IMPRESSION: Bibasilar opacities, which may be infectious or inflammatory. Recommend follow-up to resolution. Electronically Signed: Ree Albright MD at 11:15 EDT , Hip/Pelvis X-Ray 09/08/23 11:00 IMPRESSION: No acute displaced fracture or dislocation identified. Electronically Signed: Ree Albright MD at 11:27 EDT , Assessment & Plan Assessment/Plan (1) Parkinson's disease: PLAN: Plan 1. Acute debility secondary to advanced age and Parkinson's disease-patient was placed in observation status on MedSurg 3, she will be seen by PT and OT, she will need temporary placement in a correction facility for short-term rehab services. Nursing states that the patient is a DNR CC arrest no intubation. #2 Parkinson's disease-complicates care, medical course, recovery, and prognosis, patient will remain on her home medication #3 hyperlipidemia-patient is on Lipitor #4 cardiac arrhythmia-patient has a history of premature atrial contractions, her EKG today shows PACs. #5 chronic kidney disease-stage IIIb, complicates care, medical course, ketty very, and prognosis Total clinical time spent by myself addressing the patient's medical issues, re viewing all of her data, and collaborating with patient's care team: 55 minutes Charges/Coding Visit Charges Inpatient E&M: 50310 Init Hosp L2
--- NOTE | 2023-09-08 16:08 | CASEMGMT ---
Addendum entered by Penny Nunn 09/08/23 16:33: Social Work Pt had been going to outpt Therapy at [facility] recently. NANCY Hernández Original Note: Social Work SW met w/pt, pt's son Gonzalez and son in law Polo in room in regard to prior level of function and anticipated discharge. PCP: Dr. Zimmerman Specialists: Neurologist, they can't remember the name, but is with [facility] Insurance: [employer] Medicare Pharmacy: [facility] Retail LW/POA: POA form on chart, daughter in law Kira who is to son Lalo is POA. They are all working together however. LNOK: Son Gonzalez, son in law Polo, Son Lalo, daughter in law Kira Living arrangements: Pt lives home alone in a condo. Pt's family has been helping pt along with some aides. They have an aide there every morning and some evenings to assist pt. Son Gonzalez is on FMLA and goes over daily. Additionally, pt's neighbor(who is Kira's mother) comes over in the evenings before pt goes to bed. Family is helping pt with most ADLs. Pt is no longer driving, just stopped driving about 6 weeks ago, family takes pt to app. Pt can normally walk independently with her rollator. DME: Rollator, walker HHC/SNF: No history of either. SW spoke w/pt, son and son in law in room about plan. They do feel pt would benefit from a short term rehab stay and would like pt to go to TCU. SW explained the referral and authorization process, and that insurance needs to authorize in order for the SNF stay to be covered. They state understanding. SW explained will make a referral to TCU, though it is uncertain at this time if there will be a bed. SW gave son Gonzalez a list of care home facilities from [facility], of facilities in the preferred geographic area, insurance network, and complete w/quality and resource use data. SW asked pt and family to review list, SW will speak w/them Sunday for additional choices in the event TCU cannot take pt. They state understanding. Plan: SNF likely, referral made to TCU, SW to follow up on Sunday. NANCY Hernández
[2023-09-08] MEDS: Carbidopa/Levodopa 25/100 Tablet PO ×2 (17:26→22:04)
[2023-09-08] MEDS: Acetaminophen 325 MG Tablet 650 MG PO (17:28)
[2023-09-08] MEDS: Heparin Injection (Vial) 5,000 UNIT/ML VIAL 5000 UNIT SC (22:04)
[2023-09-08] MEDS: Atorvastatin Calcium 40 MG Tablet PO (22:05)
[2023-09-09 02:37] LABS: Mucous, Urine 0 SEEN /hpf (<or=2+); Red Blood Cells-Urine 0 SEEN /hpf (0-5); Squamous Epithelial Cells - UA 0 SEEN /hpf (5-10)
[2023-09-09 02:38] LABS: Color, Urine Yellow (Yellow); Glucose, Dipstick Normal (Normal); Ketone-Dipstick 5 mg/dl (Negative); Leukocyte Esterase-Dipstick 25 /ul (Negative); Nitrite-Dipstick Negative (Negative); Occult Blood-Urine Negative /ul (Negative); Protein-Dipstick 15 mg/dl (Negative); Urine Bilirubin Dipstick Negative (Negative); Urine Clarity Clear (Clear); Urine Urobilinogen Normal (Normal); Urine pH 6.5 (5.0 - 8.0)
[2023-09-09 02:58] LABS: Bacteria 1+ /hpf (None Seen); Renal Epithelial Cells 0 SEEN /hpf (0-5); Transitional Epithelial - Ur 0 SEEN /hpf (0-5); White Blood Cells 0-5 SEEN /hpf (0-5)
[2023-09-09] MEDS: 0.9% Normal Saline (1000mL) 1,000 ML 75 ML IV (05:30)
[2023-09-09] MEDS: Carbidopa/Levodopa 25/100 Tablet PO ×3 (05:31→22:07)
[2023-09-09 06:17] VITALS: BP 128/64; PULSE 92; RESP 18; TEMP 36.3; O2SAT 92
[2023-09-09 06:59] LABS: Absolute Lymphocyte Count 6.78 X10^3/uL (0.83-4.51); Basophil# 0.37 X10^3/uL; Eosinophils% 1.1 % (0-5); Hematocrit 35.2 % (37-47); Hemoglobin 11.2 g/dL (12.0-15.0); Lymphocyte # 6.78 X10^3/ul (0.83-4.51); Lymphocyte % 36.3 % (19-41); Mean Corp Hgb Conc 31.8 g/dL (32-36); Mean Corpuscular Hgb 29.6 pg (27.0-32.0); Mean Corpuscular Volume 92.9 fL (81-99); Monocyte# 1.29 X10^3/uL; Monocyte% 6.9 % (0-10); NRBC Flagged by Analyzer 0 % (0-5); Neutrophil # 9.97 X10^3/uL (2.7-7.7); Neutrophil % 53.3 % (47-70); POSITIVE DIFFERENTIAL YES; POSITIVE MORPHOLOGY YES; Platelet Count 291 K/mm3 (150-450); RBC Distribution Width CV 13.8 % (11.6-14.6); RBC Distribution Width SD 47.3 fl (35.1-43.9); Red Blood Count 3.79 M/mm3 (4.2-5.4); White Blood Count 18.7 K/mm3 (4.4-11.0)
[2023-09-09 07:03] LABS: Differential Indicated SCAN CRITERIA MET
[2023-09-09] MEDS: Aspirin 81 MG TAB.CHEW PO (09:41)
[2023-09-09] MEDS: Heparin Injection (Vial) 5,000 UNIT/ML VIAL 5000 UNIT SC ×2 (09:42→22:07)
[2023-09-09 09:43] VITALS: BP 106/70; PULSE 87; RESP 17; TEMP 36.3; O2SAT 92
[2023-09-09 15:26] VITALS: BP 173/109; PULSE 79; RESP 16; TEMP 36.6; O2SAT 95
--- NOTE | 2023-09-09 16:11 | PCM.PN.HOSP ---
Reason for Visit Reason for Visit: Diagnoses Parkinson's disease (09/08/23) Subjective Subjective Patient was seen and examined today, I talked to her briefly about going to an extended care facility for short-term rehab services, she states she vaguely remembers the conversation. Patient is alert and answers simple questions appropriately. Patient's urinalysis yesterday was unremarkable. Patient's white blood cell count today was 18.7-patient has a history of lymphoma in the past, I am not sure if this elevated white count could be secondary to lymphoma. Objective Data Objective Data Vital Signs: Vital Signs Temp Pulse Resp BP Pulse Ox O2 Del Method 97.9 F 79 16 173/109 H 95 Room Air 09/09/23 15:26 09/09/23 15:26 09/09/23 15:26 09/09/23 15:26 09/09/23 15:26 09/09/23 15:26 Oxygen Delivery Method Room Air Weight: 39.916 kg Body Mass Index (BMI) 17.2 Intake & Output: Intake and Output for Last 24 Hours 09/07/23 09/08/23 09/09/23 23:59 23:59 23:59 Intake Total 1050 / 1050 1400 / 1400 Balance 1050 / 1050 1400 / 1400 Lab / Micro Data 09/09/23 06:48 09/08/23 10:12 Labs: Laboratory Results - last 24 hr 09/09/23 02:15: Urine Color Yellow, Urine Clarity Clear, Urine pH 6.5, Ur Specific [place] 1.020, Urine Protein 15 H, Urine Glucose (UA) Normal, Urine Ketones 5 H, Urine Occult Blood Negative, Urine Nitrite Negative, Urine Bilirubin Negative, Urine Urobilinogen Normal, Ur Leukocyte Esterase 25 H, Urine RBC 0 SEEN, Urine WBC 0-5 SEEN, Ur Squamous Epith Cells 0 SEEN, Ur Transition Epith Cell 0 SEEN, Ur Renal Epithelial Cell 0 SEEN, Urine Bacteria 1+, Urine Mucus 0 SEEN 09/09/23 06:48: WBC 18.7 H, RBC 3.79 L, Hgb 11.2 L, Hct 35.2 L, MCV 92.9, MCH 29.6, MCHC 31.8 L, RDW Std Deviation 47.3 H, RDW Coeff of [place] 13.8, Plt Count 291, MPV 10.0, Immature Gran % (Auto) 0.400, Neut % (Auto) 53.3, Lymph % (Auto) 36.3, [place] % (Auto) 6.9, Eos % (Auto) 1.1, Baso % (Auto) 2.0 H, Absolute Neuts (auto) 10.0 H, Absolute Lymphs (auto) 6.78 H, Nucleated RBC % 0 Physical Exam Narrative alert, oriented x3 and no apparent distress Constitutional Narrative: Patient appears cachectic, she is extremely hard of hearing General Appearance: cooperative, well kempt and well developed Orientation / Consciousness: awake, oriented to person and oriented to place HEENT normocephalic, head/scalp atraumatic and moist oral mucous membranes HEENT Narrative: Extremely hard of hearing, patient answers simple questions appropriately, again she does not remember my entire conversation yesterday about her going to a rehab facility Eyes PERRL, EOMs intact bilaterally and conjunctivae normal Neck supple, no JVD, thyroid normal and no carotid bruits General: trachea midline Resp normal respiratory effort, no retractions, no use of accessory muscles and clear to auscultation bilaterally Auscultation: Negative for rales, rhonchi or wheezes Cardio S1 normal heart sound, S2 normal heart sound, no murmurs, no rub and no gallops Cardio Narrative: Heart rate and rhythm is irregular GI normal to inspection, nondistended, normoactive bowel sounds, soft to palpation, non-tender and non-distended Extremity no clubbing, cyanosis or edema Skin no rashes or lesions noted General Skin Exam: no breakdown Neuro CN's II-XII intact bilaterally, moves all extremities, no focal motor deficits and no sensory deficits noted Neuro Narrative: Patient only says a few words, she does not carry on a complete conversation. Sensorium / Orientation: awake, alert, oriented to person and oriented to place Psych Psych Narrative: Patient has flat affect Assessment & Plan Assessment/Plan (1) Parkinson's disease: PLAN: Plan 1. Acute debility secondary to advanced age and Parkinson's disease-patient will continue to see PT and OT, she will need temporary placement in a retirement facility #2 Parkinson's disease-complicates care, medical course, recovery, and prognosis, patient will remain on her home medication #3 hyperlipidemia-patient is on Lipitor #4 cardiac arrhythmia-patient has a history of premature atrial contractions, her EKG today shows PACs. #5 chronic kidney disease-stage IIIb, complicates care, medical course, recovery, and prognosis #6 leukocytosis-I confirmed with the patient's son that she has a history of lymphoma and sees Dr. Brooks, this smear does not predominantly have lymphocytes but in reviewing her lab records here it appears that her white count is elevated quite frequently. I have elected not to order any more CBCs on her at this time. Total clinical time spent by myself addressing the patient's medical issues, reviewing all of her data, and collaborating with patient's care team: 25 minutes Charges/Coding Visit Charges Inpatient E&M: 60995 Subs Hosp L1
[2023-09-09 17:09] VITALS: BP 152/90
[2023-09-09] MEDS: Ensure Plus High Protein 120 ML LIQUID PO ×2 (17:14→22:07)
[2023-09-09 21:57] VITALS: BP 172/101; PULSE 79; RESP 18; TEMP 36.7; O2SAT 95
[2023-09-09] MEDS: Atorvastatin Calcium 40 MG Tablet PO (22:07)
[2023-09-09 22:42] VITALS: BP 172/101; PULSE 79
[2023-09-09] MEDS: 0.9% Saline Lock 10 ML Syringe IV (22:42)
[2023-09-09] MEDS: hydrALAZINE 20 MG/ML Vial 10 MG IV (22:42)
--- NOTE | 2023-09-09 23:52 | PCM.HOSP.N ---
Hospitalist Note Patient with mild agitation, attempting to get out of bed, underlying Parkinson's disease with dementia, will dose with low dose seroquel x 1 and if assists may consider q HS if needed/appropriate.
[2023-09-10 01:33] VITALS: BP 161/98; PULSE 87; RESP 18; TEMP 36.4; O2SAT 92
[2023-09-10] MEDS: QUEtiapine 25 MG Tablet 12.5 MG PO (01:37)
[2023-09-10 06:14] VITALS: BP 138/93; PULSE 80; RESP 16; TEMP 36.6; O2SAT 96
[2023-09-10] MEDS: Carbidopa/Levodopa 25/100 Tablet PO ×3 (06:17→20:47)
[2023-09-10 06:31] LABS: Absolute Lymphocyte Count 7.56 X10^3/uL (0.83-4.51); Absolute Neutrophil Count 5.8 X10^3/uL (2.0-7.7); Basophil# 0.32 X10^3/uL; Basophil% 2.1 % (0-1); Eosinophil# 0.44 X10^3/uL; Eosinophils% 2.8 % (0-5); Hematocrit 34.3 % (37-47); Hemoglobin 10.9 g/dL (12.0-15.0); Lymphocyte # 7.56 X10^3/ul (0.83-4.51); Lymphocyte % 48.5 % (19-41); Mean Corp Hgb Conc 31.8 g/dL (32-36); Mean Corpuscular Hgb 29.4 pg (27.0-32.0); Mean Corpuscular Volume 92.5 fL (81-99); Monocyte# 1.42 X10^3/uL; Monocyte% 9.1 % (0-10); NRBC Flagged by Analyzer 0 % (0-5); Neutrophil # 5.78 X10^3/uL (2.7-7.7); Neutrophil % 37.1 % (47-70); POSITIVE DIFFERENTIAL YES; Platelet Count 301 K/mm3 (150-450); RBC Distribution Width CV 13.8 % (11.6-14.6); RBC Distribution Width SD 47.1 fl (35.1-43.9); Red Blood Count 3.71 M/mm3 (4.2-5.4); White Blood Count 15.6 K/mm3 (4.4-11.0)
[2023-09-10 06:41] LABS: Differential Indicated SCAN CRITERIA MET
[2023-09-10 06:58] LABS: ALB/GLOB Ratio 0.9 RATIO (0.9-2.4); AST(SGOT) 38 U/L (15-37); Alanine Aminotransfer ALT/SGPT 11 U/L (13-56); Albumin, Serum 2.9 g/dL (3.2-5.0); Alkaline Phosphatase 104 U/L (45-117); Anion Gap 4 (5-15); BUN 24 mg/dL (7-18); BUN/Creat Ratio 26.5 RATIO (10-20); Calcium,Total 8.7 mg/dL (8.5-10.1); Chloride 109 mmol/L (98-107); EST Glomerular Filtration Rate 63 mL/min (>60); Est Glom Filt Rate - Afr Amer 76 mL/min (>60); Estimated Creatinine Clearance 27.75 ml/min; Globulin 3.1 g/dL (2.2-4.2); Glucose 95 mg/dL (74-106); Magnesium 2.1 mg/dL (1.6-2.6); Phosphorus 3.1 mg/dL (2.5-4.9); Potassium 3.8 mmol/L (3.5-5.1); Sodium Level 140 mmol/L (136-145)
[2023-09-10 07:19] LABS: Differential Comment SCANNED
[2023-09-10 08:49] VITALS: BP 117/79; PULSE 70; RESP 18; TEMP 37.2; O2SAT 95
[2023-09-10] MEDS: Ensure Plus High Protein 120 ML LIQUID PO ×3 (08:52→20:51)
[2023-09-10] MEDS: Aspirin 81 MG TAB.CHEW PO (08:54)
[2023-09-10] MEDS: Heparin Injection (Vial) 5,000 UNIT/ML VIAL 5000 UNIT SC ×2 (08:54→20:47)
--- NOTE | 2023-09-10 10:54 | CASEMGMT ---
Social Work SW met spoke w/Estefani in TCU, she did start precert, pt will need to be off of Seroquel for 24 hours however before TCU can take pt. Pt got Seroquel early this morning. SW let RN know, pt is now on scheduled Risperidone. SW let Estefani in TCU know. Pt's son Lalo had left a message for JERMAIN stating the choices for pt were 1. TCU, 2. [facility] and 3. [facility]. Son then called back again w/questions. SW let Lalo know TCU accepted pt and started precert. SW explained pt needs to be off of Seroquel for 24 hours in order for TCU to take pt. Son states understanding. SW explained the insurance process, and that we will not know ahead of time how long insurance will authorize, explained insurance will authorize for a certain amount of days, once pt is in TCU if pt were to need more time the staff goes back to insurance to ask for more time--with no guarantee of what they will authorize. Son states understanding. Son also spoke about longterm plans, he is thinking the plan may be for pt to go to assisted living after rehab. Lalo states they had looked at [facility] as a possibility a few months ago. JERMAIN explained that the SW in TCU would assist with this process. JERMAIN will continue to follow, anticipate TCU as plan from [facility], pending precert. NANCY Hernández
[2023-09-10 14:11] VITALS: BP 128/78; PULSE 82; RESP 16; TEMP 36.6; O2SAT 95
--- NOTE | 2023-09-10 16:45 | PN.HOSP_ITS ---
Reason for Visit Reason for Visit: Debility/weakness Subjective Subjective Patient is a 88-year-old white female who presented to emergency department [facility] on 09/07/2022 after fall. She was found in her bathroom sitting on her commode leaning against the wall and was found by her family. She has a history of Parkinson disease and has intermittent falls. She has some caregivers during the day but none at night. Upon presentation she was found to have an elevated white count and a serum creatinine of 1.23 with a BUN of 23 and unremarkable vital signs. There was no signs of injury and her UA was inconsistent with infection. Family reports that she has slowly becoming more debilitated and also having some mild memory issues. She has had some agitation at night for which we started risperidone scheduled. Physical and Occupational Therapy evaluated the patient and have recommended ongoing therapy services. TCU has been chosen and pre-CERT is pending. Objective Data Objective Data Vital Signs: Vital Signs Temp Pulse Resp BP Pulse Ox O2 Del Method 97.9 F 82 16 128/78 H 95 Room Air 09/10/23 14:11 09/10/23 14:11 09/10/23 14:11 09/10/23 14:11 09/10/23 14:11 09/10/23 14:11 Oxygen Delivery Method Room Air Weight: 39.916 kg Body Mass Index (BMI) 17.2 Intake & Output: Intake and Output for Last 24 Hours 09/08/23 09/09/23 09/10/23 23:59 23:59 23:59 Intake Total 1050 / 1050 3101.25 / 3101.25 240 / 240 Balance 1050 / 1050 3101.25 / 3101.25 240 / 240 Lab / Micro Data 09/10/23 05:55 09/10/23 05:55 Labs: Laboratory Results - last 24 hr 09/10/23 05:55: WBC 15.6 H, RBC 3.71 L, Hgb 10.9 L, Hct 34.3 L, MCV 92.5, MCH 29.4, MCHC 31.8 L, RDW Std Deviation 47.1 H, RDW Coeff of [place] 13.8, Plt Count 301, MPV 10.0, Immature Gran % (Auto) 0.400, Neut % (Auto) 37.1 L, Lymph % (Auto) 48.5 H, [place] % (Auto) 9.1, Eos % (Auto) 2.8, Baso % (Auto) 2.1 H, Absolute Neuts (auto) 5.8, Absolute Lymphs (auto) 7.56 H, Nucleated RBC % 0, Differential Comment SCANNED, Sodium 140, Potassium 3.8, Chloride 109 H, Carbon Dioxide 27.0, Anion Gap 4 L, BUN 24 H, Creatinine 0.90, Estim Creat Clear Calc 27.75, Est GFR (MDRD) Af Amer 76, Est GFR (MDRD) Non-Af 63, BUN/Creatinine Ratio 26.5 H, Glucose 95, Calcium 8.7, Phosphorus 3.1, Magnesium 2.1, Total Bilirubin 0.50, AST 38 H, ALT 11 L, Alkaline Phosphatase 104, Total Protein 6.0 L, Albumin 2.9 L, Globulin 3.1, Albumin/Globulin Ratio 0.9 Physical Exam Const alert and no apparent distress Constitutional Narrative: Thin, elderly, white female, walking around with therapy services, appears comfortable, very pleasant and interactive HEENT head/scalp atraumatic and moist oral mucous membranes Head and Scalp: normocephalic Resp normal respiratory effort, no retractions and no use of accessory muscles Auscultation: Negative for rales, rhonchi or wheezes Cardio regular rate, regular rhythm, S1 normal heart sound, S2 normal heart sound, no murmurs, no rub, no gallops and no clicks GI normal to inspection, nondistended, normoactive bowel sounds, soft to palpation and non-tender Extremity no clubbing, cyanosis or edema Extremity Narrative: Decreasing muscle mass, pedal pulses and radial pulses are 2+ Neuro moves all extremities and no focal motor deficits Neuro Narrative: Gait has shortened strides utilizing a wheeled walker Sensorium / Orientation: awake, alert and oriented to person Speech: speech normal Psych affect normal Psych Narrative: Very pleasant, interacts appropriately Assessment & Plan Assessment/Plan (1) Parkinson's disease: (2) Debility: (3) Generalized weakness: (4) Falls: (5) Leukocytosis: (6) Anemia: PLAN: Plan Falls/debility/generalized weakness -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 along with her Parkinson's disease -PT and Occupational Therapy had recommended ongoing therapy services at discharge and plan is for discharge to TCU -Case management/social work following Leukocytosis -Patient has chronic elevation -Seems to be at baseline -Continued outpatient follow-up Intermittent delirium -Suspect related to sundowning with mild cognitive impairment at baseline -Start scheduled low-dose risperidone tonight and will likely continue at discharge History of severe malnutrition -Continue supplements Anemia -Slight drop from baseline -May be dilutional -Continue to monitor -No signs of active bleeding Hyperlipidemia -Continue home Lipitor Parkinson's disease -Continue carbidopa levodopa Chronic hypotension -Suspect related to Parkinson's -Continue midodrine GERD -Continue home famotidine History of PACs -Chronic -No intervention required CKD stage IIIb -Stable DVT prophylaxis -Continue subcu heparin CODE STATUS -DNR CCA with no intubation Charges/Coding Visit Charges Inpatient E&M: 86672 Subs Hosp L2
[2023-09-10 20:44] VITALS: BP 141/96; PULSE 76; RESP 16; TEMP 36.9; O2SAT 95
[2023-09-10] MEDS: Atorvastatin Calcium 40 MG Tablet PO (20:47)
[2023-09-10] MEDS: 0.9% Saline Lock 10 ML Syringe IV (20:47)
[2023-09-10] MEDS: RisperiDONE 0.25 MG Tablet PO (20:47)
[2023-09-11] VITALS (7 sets, daily range): BP systolic 98–156; BP diastolic 53–91; PULSE 64–83; RESP 16–18; TEMP 36.4–37.2; O2SAT 95–99
[2023-09-11 06:05] LABS: Absolute Lymphocyte Count 3.47 X10^3/uL (0.83-4.51); Absolute Neutrophil Count 4.6 X10^3/uL (2.0-7.7); Basophil# 0.03 X10^3/uL; Basophil% 0.3 % (0-1); Eosinophil# 0.09 X10^3/uL; Hematocrit 38.6 % (37-47); Hemoglobin 13.1 g/dL (12.0-15.0); Lymphocyte # 3.47 X10^3/ul (0.83-4.51); Lymphocyte % 38.3 % (19-41); Mean Corp Hgb Conc 33.9 g/dL (32-36); Mean Corpuscular Hgb 31.3 pg (27.0-32.0); Mean Corpuscular Volume 92.1 fL (81-99); Mean Platelet Vol. 9.6 fl (6.2-12.0); Monocyte# 0.82 X10^3/uL; NRBC Flagged by Analyzer 0 % (0-5); Neutrophil # 4.63 X10^3/uL (2.7-7.7); Neutrophil % 51.1 % (47-70); Platelet Count 297 K/mm3 (150-450); RBC Distribution Width CV 12.2 % (11.6-14.6); RBC Distribution Width SD 41.3 fl (35.1-43.9); Red Blood Count 4.19 M/mm3 (4.2-5.4); White Blood Count 9.1 K/mm3 (4.4-11.0)
[2023-09-11] MEDS: Carbidopa/Levodopa 25/100 Tablet PO ×3 (06:13→21:00)
[2023-09-11] MEDS: Heparin Injection (Vial) 5,000 UNIT/ML VIAL 5000 UNIT SC ×2 (09:50→20:58)
[2023-09-11] MEDS: Ensure Plus High Protein 120 ML LIQUID PO ×4 (09:50→20:59)
[2023-09-11] MEDS: Aspirin 81 MG TAB.CHEW PO (09:50)
--- NOTE | 2023-09-11 14:29 | CASEMGMT ---
Met with?patient and her sons to complete SAN form. SAN form explained to all who voiced understanding and signed form. Original form placed in pt?s chart and copy provided to pt.? Magaly Tobin, Discharge Planning Asst
--- NOTE | 2023-09-11 14:35 | NEURO.CONS ---
Assessment and Plan: Neuro Assessment/Plan ADDIS CARRENO is a 88 F with a past medical history of Parkinsons, TIA, frequent falls, being evaluated by Teleneurology for falls/syncope. Diagnosis: Syncope: orthostatic vs micturition Plan: Agree with PT/OT assessment Orthostatic vitals, if low then recommend compression stockings, abdominal binder, increased fluid intake No changes to PD medications EEG completed, report to be uploaded I personally attended this patient and spent a total time of 53 minutes evaluating this patient including clinical assessment, review of chart, medical history imaging, and determining appropriate treatment and workup. HPI Consult Data Date of Consult: 09/11/23 HPI Narrative HPI Narrative: ADDIS CARRENO, is a 88 F who presents with a fall. She was found on the commode leaning up against the wall per report. Presented via squad. She does recall any prodromal symptoms. Last remembers walking into the bathroom but otherwise no clear memory of the event. She does not think she was confused afterwards, but did feel groggy and lethargic. When she presented to the ED, orthostatics were attempted but were unable to obtain standing readings. Labs with mildly elevated creatinine, otherwise unremarkable. She feels better today, almost back at baseline and ready to be discharged. EEG was completed earlier this AM. Does have history of PD, reports good response to levo/carb. No signficant side effects from the medication. [facility] Medical History (Updated 09/10/23 @ 16:[address] Maame Pinon, DO) Brain TIA CKD (chronic kidney disease), stage II History of atrial myxoma Hyperlipidemia Hypertension Lymphoma Nonrheumatic mitral (valve) prolapse Nonrheumatic mitral valve regurgitation Nonrheumatic tricuspid valve regurgitation Parkinsons disease Parotid tumor Premature atrial contractions Premature ventricular contraction Home Medications multivitamin 1 tab PO DAILY vitamin 11/20/18 [History Last Taken 01/15/23] carbidopa 25 mg-levodopa 100 mg tablet 2 tab PO TID parkinsons 01/05/23 [History Last Taken 06/28/23 16:20] midodrine 5 mg tablet 5 mg PO TID blood pressure 06/28/23 [History Last Taken 06/28/23 16:20] aspirin 81 mg chewable tablet 81 mg PO BREAKFAST 1 month #30 tabs 06/29/23 [Rx Last Taken Unknown] atorvastatin 40 mg tablet 40 mg PO QHS 1 month #30 tabs 06/29/23 [Rx Last Taken Unknown] VITAL TEARS DRY EYES 09/08/23 [History Last Taken Unknown] ascorbic acid (vitamin C) 1,000 mg tablet,extended release (C Complex) 1,000 mg PO DAILY 09/08/23 [History Last Taken Unknown] cyanocobalamin (vitamin B-12) 1,000 mcg sublingual tablet 1,000 mcg sublingual DAILY 09/08/23 [History Last Taken Unknown] famotidine 40 mg tablet 40 mg PO DAILY 09/08/23 [History Last Taken Unknown] Allergy/AdvReac Type Severity Reaction Status Date / Time Penicillins Allergy Rash Verified 07/28/23 09:19 tramadol AdvReac Other Verified 07/28/23 09:19 Family History Father Heart disease CHF (congestive heart failure) Mother No problems noted. Surgical History History of laparoscopic cholecystectomy History of splenectomy Social History household members: none Smoking Status: Never smoker alcohol intake: current details: occasional substance use type: does not use Vital Signs Vital Signs Vital Signs: 09/10/23 20:20 09/10/23 20:44 09/10/23 22:00 Temperature 98.5 F Temperature Source Oral Pulse Rate 76 Pulse Strength Normal (2+) Respiratory Rate 16 Respiratory Effort Normal Respiratory Depth Normal Respiratory Pattern Normal Blood Pressure 141/96 H Blood Pressure Mean 111 Blood Pressure Source Monitor Blood Pressure Position Semi-Fowlers Blood Pressure Location Right Arm Pulse Ox 95 Oxygen Delivery Method Room Air Room Air 09/11/23 06:11 09/11/23 09:14 09/11/23 09:14 Temperature 98.9 F 97.5 F L Temperature Source Temporal Oral Pulse Rate 64 74 Pulse Strength Normal (2+) Respiratory Rate 16 16 Respiratory Effort Respiratory Depth Respiratory Pattern Blood Pressure 136/85 H 103/53 L Blood Pressure Mean 102 69 Blood Pressure Source Monitor Monitor Blood Pressure Position Semi-Fowlers Semi-Fowlers Blood Pressure Location Right Arm Left Forearm Pulse Ox 95 96 Oxygen Delivery Method Room Air Room Air 09/11/23 09:56 Temperature Temperature Source Pulse Rate Pulse Strength Respiratory Rate Respiratory Effort Normal Non-Labored Respiratory Depth Normal Respiratory Pattern Normal Blood Pressure Blood Pressure Mean Blood Pressure Source Blood Pressure Position Blood Pressure Location Pulse Ox Oxygen Delivery Method Room Air Weight Weight: 39.916 kg Body Mass Index (BMI) 17.2 EEG Results Procedure Details EEG Procedure Details: ADDIS CARRENO is a 88 year old F with a past medical history of , who presents for evaluation of Electroencephalogram on DATE at TIME Physical Exam Eyes PERRL and EOMs intact bilaterally Resp normal respiratory effort Neuro Sensorium / Orientation: awake, alert, oriented to person, oriented to place and oriented to time Cranial Nerves: CN normal except as noted Coordination / Balance: [id number] test normal, [id number] test normal and Romberg test negative Speech: speech normal Sensory Exam: double simultaneous stimulation for sensation normal Motor Exam: strength 5/5 throughout and muscle tone normal throughout Coordination: [id number]-[id number] test normal and [id number]-[id number] test normal Pupil Exam: Normal Pupillary Reactivity/Response: bilateral Lab / Micro Data 09/11/23 06:00 09/10/23 05:55 Labs: Laboratory Results - last 24 hr 09/11/23 06:00: WBC 9.1, RBC 4.19 L, Hgb 13.1, Hct 38.6, MCV 92.1, MCH 31.3, MCHC 33.9 D, RDW Std Deviation 41.3, RDW Coeff of [place] 12.2, Plt Count 297, MPV 9.6, Immature Gran % (Auto) 0.300, Neut % (Auto) 51.1, Lymph % (Auto) 38.3, [place] % (Auto) 9.0, Eos % (Auto) 1.0, Baso % (Auto) 0.3, Absolute Neuts (auto) 4.6, Absolute Lymphs (auto) 3.47, Nucleated RBC % 0 Active Medications Active Medications Active Medications: Current Medications Generic Name Dose Route Start Last Admin Trade Name Freq PRN Reason Stop Dose Admin Acetaminophen 650 mg 09/08/23 14:41 09/08/23 17:28 Acetaminophen 325 Mg Tablet PO 650 mg Q6H PRN PRN Administration Pain 1-10 Or Fever >100.7 Ascorbic Acid 1,000 mg 09/12/23 10:00 Ascorbic Acid 500 Mg Tablet PO DAILY ARIA Aspirin 81 mg 09/09/23 08:00 09/11/23 09:50 Aspirin 81 Mg Tab.Chew PO 81 mg BREAKFAST ARIA Administration Atorvastatin Calcium 40 mg 09/08/23 22:00 09/10/23 20:47 Atorvastatin Calcium 40 Mg Tablet PO 40 mg QHS ARIA Administration Carbidopa/Levodopa 2 tablet 09/08/23 14:41 09/11/23 13:58 Carbidopa/Levodopa 25/100 Tablet PO 2 tablet TID ARIA Administration Cyanocobalamin 1,000 mcg 09/12/23 10:00 Cyanocobalamin 500 Mcg Tablet PO DAILY ARIA Famotidine 40 mg 09/12/23 10:00 Famotidine 20 Mg Tablet PO DAILY ARIA Heparin Sodium (Porcine) 5,000 unit 09/08/23 22:00 09/11/23 09:50 Heparin Injection (Vial) 5,000 Unit/Ml Vial SC 5,000 unit Q12 ARIA Administration Hydralazine HCl 10 mg 09/09/23 22:21 09/09/23 22:42 Hydralazine 20 Mg/Ml Vial IV 10 mg Q4H PRN PRN Administration SBP > 160 Protocol Sodium Chloride 250 mls @ 15 mls/hr 09/08/23 14:55 IV .[id number] PRN Additional IVPB Infusion Sodium Chloride 250 mls @ 15 mls/hr 09/08/23 14:55 IV .[id number] PRN Saline Flush Nutritional Formula (Lactose Free) 120 ml 09/09/23 18:00 09/11/23 13:58 Ensure Plus High Protein 120 Ml Liquid PO 120 ml 4X/DAY ARIA Administration Ondansetron HCl 4 mg 09/08/23 14:41 Ondansetron 4 Mg/2 Ml Vial IV Q8H PRN PRN NAUSEA/VOMITING Risperidone 0.25 mg 09/10/23 22:00 09/10/23 20:47 Risperidone 0.25 Mg Tablet PO 0.25 mg QHS ARIA Administration Protocol Sodium Chloride 10 - 40 ml 09/08/23 14:55 09/10/23 20:47 0.9% Saline Lock 10 Ml Syringe IV 10 ml UD PRN Administration SALINE FLUSH
--- NOTE | 2023-09-11 15:32 | CASEMGMT ---
Social Work SW spoke w/pt and pt's sons, let them know we are still waiting for precert to TCU. SW will continue to follow, will keep them updated in regard to precert. NANCY Hernández
--- NOTE | 2023-09-11 16:10 | PCM.PN.HOSP ---
Reason for Visit Reason for Visit: Debility/weakness Subjective Subjective I was able to talk to her son who is more involved with her home care today. Initially her son yesterday told me that there was not a loss of consciousness however her son today reports that there was a loss of consciousness and groggy period following them finding her on toilet. Evidently her last episode was similar to this however did not last as long and she had an echocardiogram, MRI, and neuro evaluation at which time they thought she had a TIA and was placed on an aspirin. Family also reports she had an event monitor as an outpatient for 30 days that showed no abnormalities however she did not have an episode while she was on the event monitor. She had a better night last night. Objective Data Objective Data Vital Signs: Vital Signs Temp Pulse Resp BP Pulse Ox O2 Del Method 98.2 F 71 18 116/71 99 Room Air 09/11/23 14:30 09/11/23 14:30 09/11/23 14:30 09/11/23 14:30 09/11/23 14:30 09/11/23 14:30 Oxygen Delivery Method Room Air Weight: 39.916 kg Body Mass Index (BMI) 17.2 Intake & Output: Intake and Output for Last 24 Hours 09/09/23 09/10/23 09/11/23 23:59 23:59 23:59 Intake Total 3101.25 / 3101.25 440 / 440 Balance 3101.25 / 3101.25 440 / 440 Lab / Micro Data 09/11/23 06:00 09/10/23 05:55 Labs: Laboratory Results - last 24 hr 09/11/23 06:00: WBC 9.1, RBC 4.19 L, Hgb 13.1, Hct 38.6, MCV 92.1, MCH 31.3, MCHC 33.9 D, RDW Std Deviation 41.3, RDW Coeff of [place] 12.2, Plt Count 297, MPV 9.6, Immature Gran % (Auto) 0.300, Neut % (Auto) 51.1, Lymph % (Auto) 38.3, [place] % (Auto) 9.0, Eos % (Auto) 1.0, Baso % (Auto) 0.3, Absolute Neuts (auto) 4.6, Absolute Lymphs (auto) 3.47, Nucleated RBC % 0 Physical Exam Const alert and no apparent distress Constitutional Narrative: Thin, elderly, white female, sitting up in bed, son at bedside, appears comfortable, very pleasant and interactive, oriented to self and place but not time General Appearance: cooperative Orientation / Consciousness: oriented to place and confused HEENT normocephalic, head/scalp atraumatic and moist oral mucous membranes HEENT Narrative: Mallampati is 1, no thrush Resp normal respiratory effort, no retractions, no use of accessory muscles and clear to auscultation bilaterally Auscultation: Negative for rales, rhonchi or wheezes Cardio regular rate, S1 normal heart sound, S2 normal heart sound, no murmurs, no rub, no gallops and no clicks Cardio Narrative: Intermittent irregularity GI normal to inspection, nondistended, normoactive bowel sounds, soft to palpation, non-tender and non-distended Extremity no clubbing, cyanosis or edema Extremity Narrative: Decreasing muscle mass, pedal pulses and radial pulses are 2+ Skin no rashes or lesions noted General Skin Exam: no breakdown Neuro CN's II-XII intact bilaterally, moves all extremities, no focal motor deficits and no sensory deficits noted Neuro Narrative: Gait has shortened strides utilizing a wheeled walker Sensorium / Orientation: awake, alert, oriented to person and oriented to place Speech: speech normal Psych affect normal Psych Narrative: Very pleasant, interacts appropriately Assessment & Plan Assessment/Plan (1) Parkinson's disease: (2) Debility: (3) Generalized weakness: (4) Falls: (5) Leukocytosis: (6) Anemia: PLAN: Plan Falls/debility/generalized weakness/altered level of consciousness -Per further discussion with her other son it sounds like she may have been having some syncopal episodes associated with this -Had previous admission in June for similar event -Echo was unremarkable, MRI was unremarkable and neurology was consulted and felt that it may be TIA -Placed on baby aspirin and had a 30-day event monitor with no abnormalities detected -Check EEG -Neurology consult -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 along with her Parkinson's disease -PT and Occupational Therapy had recommended ongoing therapy services at discharge and plan is for discharge to TCU -Case management/social work following--> awaiting pre-CERT Leukocytosis -Resolved Intermittent delirium -Suspect related to sundowning with mild cognitive impairment at baseline -Risperdal seem to have helped with her sundowning History of severe malnutrition -Continue supplements -Dietitian is following Anemia -This has normalized Hyperlipidemia -Continue home Lipitor Parkinson's disease -Continue carbidopa levodopa Chronic hypotension -Suspect related to Parkinson's -Continue midodrine GERD -Continue home famotidine History of PACs -Chronic -No intervention required CKD stage IIIb -Stable DVT prophylaxis -Continue subcu heparin CODE STATUS -DNR CCA with no intubation Charges/Coding Visit Charges Inpatient E&M: 24599 Subs Hosp L2
[2023-09-11] MEDS: 0.9% Saline Lock 10 ML Syringe IV (20:59)
[2023-09-11] MEDS: Atorvastatin Calcium 40 MG Tablet PO (21:00)
[2023-09-11] MEDS: RisperiDONE 0.25 MG Tablet PO (21:00)
[2023-09-12 06:40] VITALS: BP 141/94; PULSE 71; RESP 16; TEMP 36.5; O2SAT 97
[2023-09-12] MEDS: Menthol/Lanolin/Calamine/Znox 113 GM Tube 1 APPLIC TOPICAL ×2 (06:42→22:22)
[2023-09-12] MEDS: Carbidopa/Levodopa 25/100 Tablet PO ×3 (06:42→22:24)
[2023-09-12 09:08] VITALS: BP 125/84; PULSE 74; RESP 16; TEMP 36.6; O2SAT 95
[2023-09-12] MEDS: Heparin Injection (Vial) 5,000 UNIT/ML VIAL 5000 UNIT SC ×2 (09:10→22:23)
[2023-09-12] MEDS: Ensure Plus High Protein 120 ML LIQUID PO ×3 (09:10→17:28)
[2023-09-12] MEDS: Famotidine 20 MG Tablet 40 MG PO (09:12)
[2023-09-12] MEDS: Aspirin 81 MG TAB.CHEW PO (09:12)
[2023-09-12] MEDS: Cyanocobalamin 500 MCG Tablet 1000 MCG PO (09:13)
[2023-09-12] MEDS: Ascorbic Acid 500 MG Tablet 1000 MG PO (09:13)
--- NOTE | 2023-09-12 14:10 | CASEMGMT ---
Social Work SW spoke with Estefani in TCU. Precert is still pending at this time. Pt's sons updated. Plan: TCU, pending DANIEL Cote
[2023-09-12 14:20] VITALS: BP 104/77; PULSE 80; RESP 18; TEMP 37.1; O2SAT 98
--- NOTE | 2023-09-12 16:44 | PCM.PN.HOSP ---
Reason for Visit Reason for Visit: Debility/weakness Subjective Subjective Patient states she is doing okay denies any complaints. Still awaiting pre-CERT. Objective Data Objective Data Vital Signs: Vital Signs Temp Pulse Resp BP Pulse Ox O2 Del Method 98.7 F 80 18 104/77 98 Room Air 09/12/23 14:20 09/12/23 14:20 09/12/23 14:20 09/12/23 14:20 09/12/23 14:20 09/12/23 14:20 Oxygen Delivery Method Room Air Weight: 39.916 kg Body Mass Index (BMI) 17.2 Intake & Output: Intake and Output for Last 24 Hours 09/10/23 09/11/23 09/12/23 23:59 23:59 23:59 Intake Total 440 / 440 200 / 200 50 / 50 Balance 440 / 440 200 / 200 50 / 50 Lab / Micro Data 09/11/23 06:00 09/10/23 05:55 Physical Exam Const alert and no apparent distress Constitutional Narrative: Thin, elderly, white female, sitting up in a chair at the bedside finishing her breakfast and watching television, appears comfortable, very pleasant and interactive, oriented to self and place but not time Psych affect normal Psych Narrative: Very pleasant, mildly confused, interacts appropriately Assessment & Plan Assessment/Plan (1) Parkinson's disease: (2) Debility: (3) Generalized weakness: (4) Falls: (5) Leukocytosis: (6) Anemia: PLAN: Plan Falls/debility/generalized weakness/altered level of consciousness -Per further discussion with her other son it sounds like she may have been having some syncopal episodes associated with this -Had previous admission in June for similar event -Echo was unremarkable, MRI was unremarkable and neurology was consulted and felt that it may be TIA -Placed on baby aspirin and had a 30-day event monitor with no abnormalities detected -EEG only showed mild encephalopathy versus normal drowsiness and nothing concerning for seizures -Neurology evaluated the patient and felt that she either had micturition syncope versus orthostasis -Orthostatic vital signs were negative -Given this likely micturition syncope -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 along with her Parkinson's disease -PT and Occupational Therapy had recommended ongoing therapy services at discharge and plan is for discharge to TCU -Case management/social work following--> awaiting pre-CERT Intermittent delirium -Suspect related to sundowning with mild cognitive impairment at baseline -Risperdal seem to have helped with her sundowning History of severe malnutrition -Continue supplements -Dietitian is following Anemia -This has normalized Hyperlipidemia -Continue home Lipitor Parkinson's disease -Continue carbidopa levodopa Chronic hypotension -Suspect related to Parkinson's -Continue midodrine GERD -Continue home famotidine History of PACs -Chronic -No intervention required CKD stage IIIb -Stable DVT prophylaxis -Continue subcu heparin CODE STATUS -DNR CCA with no intubation Patient has medically been ready for discharge since 08/12/2023 and currently awaiting pre-CERT from [employer] for [facility] to [facility] for ongoing [facility]hab services. Charges/Coding Visit Charges Inpatient E&M: 50890 Subs Hosp L1
[2023-09-12 22:00] VITALS: BP 134/92; PULSE 97; RESP 16; TEMP 36.6; O2SAT 96
[2023-09-12] MEDS: RisperiDONE 0.25 MG Tablet PO (22:24)
[2023-09-12] MEDS: Atorvastatin Calcium 40 MG Tablet PO (22:24)
[2023-09-13 02:45] VITALS: BP 140/84; PULSE 74; RESP 16; TEMP 36.6; O2SAT 96
[2023-09-13] MEDS: Carbidopa/Levodopa 25/100 Tablet PO ×3 (06:47→22:24)
[2023-09-13 08:39] VITALS: BP 123/74; PULSE 72; RESP 18; TEMP 36.7; O2SAT 98
[2023-09-13] MEDS: Ensure Plus High Protein 120 ML LIQUID PO ×3 (08:42→17:44)
[2023-09-13] MEDS: Aspirin 81 MG TAB.CHEW PO (08:43)
[2023-09-13] MEDS: Menthol/Lanolin/Calamine/Znox 113 GM Tube 1 APPLIC TOPICAL ×2 (08:43→22:27)
[2023-09-13] MEDS: Cyanocobalamin 500 MCG Tablet 1000 MCG PO (08:43)
[2023-09-13] MEDS: Famotidine 20 MG Tablet 40 MG PO (08:43)
[2023-09-13] MEDS: Ascorbic Acid 500 MG Tablet 1000 MG PO (08:43)
[2023-09-13] MEDS: Heparin Injection (Vial) 5,000 UNIT/ML VIAL 5000 UNIT SC ×2 (08:44→22:24)
[2023-09-13 14:09] VITALS: BP 98/69; PULSE 72; RESP 18; TEMP 36.6; O2SAT 98
--- NOTE | 2023-09-13 16:22 | PN.HOSP_ITS ---
Reason for Visit Reason for Visit: Weakness/Debility Subjective Subjective No issues overnight. Patient is very pleasantly awaiting pre-CERT for correction placement. Objective Data Objective Data Vital Signs: Vital Signs Temp Pulse Resp BP Pulse Ox O2 Del Method 97.8 F 72 18 98/69 98 Room Air 09/13/23 14:09 09/13/23 14:09 09/13/23 14:09 09/13/23 14:09 09/13/23 14:09 09/13/23 14:09 Oxygen Delivery Method Room Air Weight: 39.916 kg Body Mass Index (BMI) 17.2 Intake & Output: Intake and Output for Last 24 Hours 09/11/23 09/12/23 09/13/23 23:59 23:59 23:59 Intake Total 200 / 200 50 / 50 Balance 200 / 200 50 / 50 Lab / Micro Data 09/11/23 06:00 09/10/23 05:55 Physical Exam Const alert and no apparent distress Constitutional Narrative: Thin, elderly, white female, sitting up in a chair at the bedside finishing her breakfast and watching television, appears comfortable, very pleasant and interactive, oriented to self and place but not time General Appearance: cooperative HEENT normocephalic, head/scalp atraumatic and moist oral mucous membranes Neuro Sensorium / Orientation: awake, alert, oriented to person and oriented to place Speech: speech normal Psych affect normal Psych Narrative: Very pleasant, mildly confused, interacts appropriately Assessment & Plan Assessment/Plan (1) Parkinson's disease: (2) Debility: (3) Generalized weakness: (4) Falls: (5) Leukocytosis: (6) Anemia: PLAN: Plan Falls/debility/generalized weakness/altered level of consciousness -Per further discussion with her other son it sounds like she may have been having some syncopal episodes associated with this -Had previous admission in June for similar event -Echo was unremarkable, MRI was unremarkable and neurology was consulted and felt that it may be TIA -Placed on baby aspirin and had a 30-day event monitor with no abnormalities detected -EEG only showed mild encephalopathy versus normal drowsiness and nothing concerning for seizures -Neurology evaluated the patient and felt that she either had micturition syncope versus orthostasis -Orthostatic vital signs were negative -Given this likely micturition syncope -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 along with her Parkinson's disease -PT and Occupational Therapy had recommended ongoing therapy services at discharge and plan is for discharge to TCU -Case management/social work following--> awaiting pre-CERT Intermittent delirium -Suspect related to sundowning with mild cognitive impairment at baseline -Risperdal seem to have helped with her sundowning History of severe malnutrition -Continue supplements -Dietitian is following Anemia -This has normalized Hyperlipidemia -Continue home Lipitor Parkinson's disease -Continue carbidopa levodopa Chronic hypotension -Suspect related to Parkinson's -Continue midodrine GERD -Continue home famotidine History of PACs -Chronic -No intervention required CKD stage IIIb -Stable DVT prophylaxis -Continue subcu heparin CODE STATUS -DNR CCA with no intubation Patient has medically been ready for discharge since 08/12/2023 and currently a waiting pre-CERT from insurance company for discharge to long-term facility for ongoing rehab services. Charges/Coding Visit Charges Inpatient E&M: 37329 Subs Hosp L1
[2023-09-13 20:14] VITALS: BP 115/68; PULSE 90; RESP 16; TEMP 36.7; O2SAT 97
[2023-09-13] MEDS: RisperiDONE 0.25 MG Tablet PO (22:23)
[2023-09-13] MEDS: Atorvastatin Calcium 40 MG Tablet PO (22:24)
[2023-09-14 02:14] VITALS: BP 141/72; PULSE 66; RESP 16; TEMP 36.7; O2SAT 94
[2023-09-14] MEDS: Carbidopa/Levodopa 25/100 Tablet PO ×2 (05:47→14:19)
[2023-09-14 09:00] VITALS: PULSE 84
[2023-09-14 09:30] VITALS: BP 85/60; PULSE 62; RESP 18; TEMP 36.4; O2SAT 95
[2023-09-14] MEDS: Ensure Plus High Protein 120 ML LIQUID PO ×2 (09:37→14:19)
[2023-09-14] MEDS: 0.9% Saline Lock 10 ML Syringe IV (09:37)
[2023-09-14] MEDS: Aspirin 81 MG TAB.CHEW PO (09:38)
[2023-09-14] MEDS: Famotidine 20 MG Tablet 40 MG PO (09:38)
[2023-09-14] MEDS: Heparin Injection (Vial) 5,000 UNIT/ML VIAL 5000 UNIT SC (09:38)
[2023-09-14] MEDS: Ascorbic Acid 500 MG Tablet 1000 MG PO (09:38)
[2023-09-14] MEDS: Menthol/Lanolin/Calamine/Znox 113 GM Tube 1 APPLIC TOPICAL (09:38)
[2023-09-14] MEDS: Cyanocobalamin 500 MCG Tablet 1000 MCG PO (09:38)
[2023-09-14] MEDS: 0.9% Normal Saline (500mL Bag) 500 ML 999 ML IV (09:39)
[2023-09-14 11:15] VITALS: BP 101/58; PULSE 69; RESP 16; TEMP 36.4; O2SAT 98
[2023-09-14] MEDS: Midodrine HCl 5 MG Tablet 10 MG PO (11:32)
--- NOTE | 2023-09-14 11:49 | TREXTCAR_ITS ---
Diet Diet Order/Speech Therapy: 09/08/23 14:41 Diet: Regular - General Food consistency:: Regular Liquid Consistency:: Regular/Thin Routine Orders/Code Status Suppository Frequency: Daily PRN O2 Frequency: PRN Keep PO Greater than or Equal to (%): 89 Routine Lab Work: CBC (As needed) and BMP (As needed) Code Status: DNRCC-A (No intubation) Wound(s) right grier: Wound Type: Abrasion Suggestions for Active Care Change Position every (hours): 2 Therapies Weight Bearing: Full weight bearing Physical Therapy: Eval and Treat Occupational Therapy: Eval and Treat Speech Therapy: Eval and Treat Problem/Diagnosis (1) Parkinson's disease: Status: Acute Code(s): G20 - Parkinson's disease (2) Debility: Status: Acute Code(s): R53.81 - Other malaise (3) Generalized weakness: Status: Acute Code(s): R53.1 - Weakness (4) Falls: Status: Acute Code(s): W19.XXXA - Unspecified fall, initial encounter (5) Leukocytosis: Status: Acute Code(s): D72.829 - Elevated white blood cell count, unspecified (6) Anemia: Status: Acute Code(s): D64.9 - Anemia, unspecified Allergies/Procedures Done in Hospital Allergies Penicillins Allergy (Verified 07/28/23 09:19) Rash tramadol Adverse Reaction (Verified 07/28/23 09:19) Other upset stomach Procedures: Electroencephalogram and - (Brain CT/cervical spine CT/chest x- ray/hip and pelvis x-ray) Type of Care/Length of Stay Estimated LOS: Convalescent Care Less Than 30 days Type of Care Needed: Skilled Rehab Potential: Good Prognosis: Fair Additional Orders/Day of Discharge Day of Discharge: 09/14/23 Dietary and Speech Recommendations Dietitian Recommendations/Changes: Continue with Regular diet at this time for liberalization. Will order EPHP 120mL 4x/day with medpass to help increase oral intakes and prevent further weight loss. Will reassess oral intakes upon f/u. Follow Up Care Please follow up with your Primary Care Physician in: In 1 to 2 weeks after discharge from skilled facility Discharge Plan Admission Admit Date/Time: 09/08/23 13:09 Attending Provider: Maame Pinon Primary Care Provider: Howard Zimmerman Chi Consulting Providers: Gonzalez Garza; Karen Mckeon; Farzana Levin; Vilma Shine; Koko Mckeon; Ashlee Bautista; ERIC FLOWERS; Eri Interiano; Alayna Valverde; Reji Reid; Marly Ochoa; Carlos Whipple; Darcy Hernandez; Paige Martinez; Timothy Fortune; Cherie Mark; Jose Benson; Isiah Kelly; Vincent Suresh; Ruy Sun; Elian Stroud; John Quesada; Pamela Kamara; Jonathon Rodríguez; Mallika Pinon; Roopa Tolbert Instructions Patient Instructions: ED Fainting, Uncertain Cause Discharge Orders/Prescriptions Prescriptions: No Action carbidopa-levodopa 25-100 mg tablet 2 tab PO TID Patient Comments: patient took home dose at 1620 multivitamin tablet 1 tab PO DAILY midodrine 5 mg tablet 5 mg PO TID atorvastatin 40 mg Tablet 40 mg PO QHS 30 Days Qty: 30 2RF aspirin 81 mg Tablet,Chewable 81 mg PO BREAKFAST 30 Days Qty: 30 3RF famotidine 40 mg tablet 40 mg PO DAILY cyanocobalamin (vitamin B-12) 1,000 mcg tablet, sublingual 1,000 mcg sublingual DAILY C Complex 1,000 mg tablet extended release 1,000 mg PO DAILY VITAL TEARS Patient Comments: FAMILY STATES THAT PT USES EYE DROPS MADE AT [facility] THAT IS MADE WITH HER BLOOD. AFTER RESEARCH, EYE DROPS ARE CALLED VITAL EYES, OR AUTOLOGOUS SERUM. Referrals / Follow Up: Howard Zimmerman Chi, MD [Primary Care Provider] -
--- NOTE | 2023-09-14 11:51 | DS.PCM_ITS ---
Providers Date of Admission: 09/08/23 Date of Discharge: 09/14/23 Primary Care Physician: Dr. Howard Zimmerman MD Consultations 09/11/23 10:49 neuro [Consult: Tele-Neurology] Routine Consulting Provider: [facility] Reason for Consult: syncope?/Fall EMERGENT Consult: No MD Notified: Yes Date Notified: 09/11/23 Time Notified: 12:16 Method of Notification: Answering Service Nursing Unit Staff Notify [facility] of Tele-Neurology Consult: Yes Reason For Visit: DEBILITY Diagnosis Discharge Diagnosis (1) Parkinson's disease: Status: Acute Code(s): G20 - Parkinson's disease (2) Debility: Status: Acute Code(s): R53.81 - Other malaise (3) Generalized weakness: Status: Acute Code(s): R53.1 - Weakness (4) Falls: Status: Acute Code(s): W19.XXXA - Unspecified fall, initial encounter (5) Leukocytosis: Status: Acute Code(s): D72.829 - Elevated white blood cell count, unspecified (6) Anemia: Status: Acute Code(s): D64.9 - Anemia, unspecified Medications at Discharge Home Medications multivitamin 1 tab PO DAILY vitamin 11/20/18 carbidopa 25 mg-levodopa 100 mg tablet 2 tab PO TID parkinsons 01/05/23 aspirin 81 mg chewable tablet 81 mg PO BREAKFAST 1 month #30 tabs 06/29/23 atorvastatin 40 mg tablet 40 mg PO QHS 1 month #30 tabs 06/29/23 VITAL TEARS DRY EYES 09/08/23 ascorbic acid (vitamin C) 1,000 mg tablet,extended release (C Complex) 1,000 mg PO DAILY 09/08/23 cyanocobalamin (vitamin B-12) 1,000 mcg sublingual tablet 1,000 mcg sublingual DAILY 09/08/23 famotidine 40 mg tablet 40 mg PO DAILY 09/08/23 midodrine 5 mg tablet 10 mg (2 x 5 mg) PO TIDCM #0 tabs 09/14/23 risperidone 0.25 mg tablet 0.25 mg PO QHS #0 tabs 09/14/23 Hospital Course Procedures Electroencephalogram, EKG and - (CT brain/CT cervical spine/chest x-ray/hip and pelvic x-ray) Summary of Care Provided Minutes Spent on Discharge: 37 Hospital Course: Mrs. Haynes is an 88-year-old white female who presented to the emergency department at [facility] on 09/08/2023 after a fall. She was found in her bathroom sitting on the commode leaning against the wall and was found by her family. She does have a history of Parkinson disease and has history of intermittent falls. She has some caregivers during the day but none at night. Family reported that when she was found she was somewhat dazed and it took some time to for her to achieve normalcy with regards to mental status. S he had an episode similar to this late last year and they brought her in extensive stroke workup was done at that time including an echocardiogram, MRI of the brain, and outpatient event monitor. The event monitor had no abnormal rhythms however the patient did not have any events while she was on the monitor. Given the event this time we did obtain an EEG and a repeat neurology consultation. EEG was unremarkable for any epileptiform activity and only showed mild diffuse encephalopathy. Orthostatic vitals were negative and neurology felt that she probably had micturition syncope. She was seen by physical and Occupational Therapy during her hospital course and they recommended ongoing physical and occupational therapy at the time of discharge. She also has a history of chronic orthostatic hypotension. We did increase her midodrine from 5 mg 3 times daily to 10 mg 3 times daily in the event that this may have been contributing to her syncopal episodes as well. She was accepted by the transitional care unit on 09/10/2023 however we did not obtain pre-CERT for her discharge until 09/14/2023. She was stable throughout that time. We did monitor on telemetry for any abnormal events and she had none. She was able to be discharged to the TCU in stable condition on 09/14/2023. We did start very low-dose risperidone at night to help with her as it was a significant issue early in her stay but had resolved since. Discharge diagnoses: Falls Debility Generalized weakness Syncope Intermittent delirium History of severe malnutrition Anemia Hyperlipidemia Parkinson's disease Chronic hypotension GERD History of PACs CKD stage IIIb Cognitive impairment due to dementia type unclear Physical Exam Const alert, oriented x3 and no apparent distress Constitutional Narrative: Thin, elderly, white female, sitting up in a chair at the bedside, watching television, son at bedside, very pleasant, oriented to self and place but not time, appears comfortable, nontoxic General Appearance: cooperative, comfortable, well kempt and well developed Orientation / Consciousness: awake, oriented to person, oriented to place and confused Nutritional Appearance: thin HEENT normocephalic, head/scalp atraumatic and moist oral mucous membranes HEENT Narrative: Mild to moderate hearing loss, Mallampati is 1-2, no thrush Eyes PERRL, EOMs intact bilaterally and conjunctivae normal Eyes Narrative: No scleral icterus Neck no lymphadenopathy and supple Neck Narrative: Trachea midline, no thyroid enlargement noted Resp normal respiratory effort, no retractions, no use of accessory muscles and clear to auscultation bilaterally Auscultation: Negative for rales, rhonchi or wheezes Cardio regular rate, regular rhythm, S1 normal heart sound, S2 normal heart sound, no murmurs, no rub, no gallops and no clicks Cardio Narrative: Intermittent irregularity due to PACs GI normal to inspection, nondistended, normoactive bowel sounds, soft to palpation and non-tender GI Narrative: Thin Extremity no clubbing, cyanosis or edema Extremity Narrative: Decreasing muscle mass, pedal pulses and radial pulses are 2+ Skin skin turgor normal and no jaundice Neuro CN's II-XII intact bilaterally, moves all extremities and no focal motor d eficits Neuro Narrative: Gait has shortened strides utilizing a wheeled walker, generalized weakness noted with proximal musculature being greater than distal Sensorium / Orientation: awake, alert, oriented to person and oriented to place Speech: speech normal Psych affect normal Psych Narrative: Very pleasant, mildly confused, interacts appropriately Weight / BMI Weight Weight: 39.916 kg Body Mass Index (BMI) 17.2 ABG / Lab / Microbiology Data 09/11/23 06:00 09/10/23 05:55 Meaningful Use Info Meaningful Use Diagnoses (Choose all that apply): None applicable Discharge Plan Admission Admit Date/Time: 09/08/23 13:09 Primary Reason for Your Visit: Weakness/debility Attending Provider: Maame Pinon Primary Care Provider: Howard Zimmerman Chi Consulting Providers: Gonzalez Garza; Karen Mckeon; Farzana Levin; Vilma Shine; Koko Mckeon; Ashlee Bautista; ERIC FLOWERS; Eri Interiano; Alayna Valverde; Reji Reid; Marly Ochoa; Carlos Whipple; Darcy Hernandez; Paige Martinez; Timothy Fortune; Cherie Mark; Jose Benson; Isiah Kelly; Vincent Suresh; Ruy Sun; Elian Stroud; John Quesada; Pamela Kamara; Jonathon Rodríguez; Mallika Pinon; Roopa Tolbert Discharge Orders/Prescriptions Prescriptions: New midodrine 5 mg Tablet 10 mg PO TIDCM Qty: 0 0RF risperidone 0.25 mg Tablet 0.25 mg PO QHS Qty: 0 0RF Continued carbidopa-levodopa 25-100 mg tablet 2 tab PO TID Patient Comments: patient took home dose at 1620 multivitamin tablet 1 tab PO DAILY atorvastatin 40 mg Tablet 40 mg PO QHS 30 Days Qty: 30 2RF aspirin 81 mg Tablet,Chewable 81 mg PO BREAKFAST 30 Days Qty: 30 3RF famotidine 40 mg tablet 40 mg PO DAILY cyanocobalamin (vitamin B-12) 1,000 mcg tablet, sublingual 1,000 mcg sublingual DAILY C Complex 1,000 mg tablet extended release 1,000 mg PO DAILY VITAL TEARS Patient Comments: FAMILY STATES THAT PT USES EYE DROPS MADE AT [facility] THAT IS MADE WITH HER BLOOD. AFTER RESEARCH, EYE DROPS ARE CALLED VITAL EYES, OR AUTOLOGOUS SERUM. Discontinued midodrine 5 mg tablet 5 mg PO TID Referrals / Follow Up: Howard Zimmerman Chi, MD [Primary Care Provider] - Within 1 Week (After discharge from skilled facility) Disposition Disposition (needs filled in before D/C Order can be placed): Alf Facility Charges/Coding Visit Charges Inpatient E&M: 86088 SNF Disch >30 Min
[2023-09-14 14:22] VITALS: BP 133/88; PULSE 84; RESP 16; TEMP 36.6; O2SAT 97
== END 2023-09-14 15:20 | disposition skilled nursing facility (03) ==
LOC: ED 13:13 → MS3 13:26
PROVIDERS: Admitting Provider Internal Medicine; Emergency Provider Student in an Organized Health Care Education/Training Program; PCP Family Medicine Geriatric Medicine; Visit Provider Internal Medicine
DX: R53.81 Other malaise (principal); G20.A1 Parkinson's disease without dyskinesia, without mention of fluctuations; F02.80 Dementia in other diseases classified elsewhere, unspecified severity, without behavioral disturbance, psychotic disturbance, mood disturbance, and anxiety; N18.32 Chronic kidney disease, stage 3b; I95.89 Other hypotension; S70.01XA Contusion of right hip, initial encounter; R55 Syncope and collapse; E78.5 Hyperlipidemia, unspecified; I12.9 Hypertensive chronic kidney disease with stage 1 through stage 4 chronic kidney disease, or unspecified chronic kidney disease; K21.9 Gastro-esophageal reflux disease without esophagitis; W19.XXXA Unspecified fall, initial encounter; Z79.82 Long term (current) use of aspirin; D64.9 Anemia, unspecified; G93.40 Encephalopathy, unspecified; R53.1 Weakness; Z79.899 Other long term (current) drug therapy; S09.90XA Unspecified injury of head, initial encounter
CPT/HCPCS: 36415; 70450; 71045; 72125; 73502; 80048; 80053; 81001; 82550; 83735; 84100; 84484; 85025; 93005; 95819; 96361; 96372; 96374; 97110; 97116; 97162; 97166; 97530; 97535; 97802; 99221; 99285; J7030; J7040; A4216; G0378

== ENCOUNTER 2023-09-14 15:33 | Inpatient (IN) | payer MEDICARE, SELFPAY ==
[2023-09-14 15:45] VITALS: BP 124/76; PULSE 91; RESP 16; TEMP 36.2; O2SAT 100; BMI 18.8
[2023-09-14 16:11] VITALS: BMI 18.8
[2023-09-14] MEDS: Carbidopa/Levodopa 25/100 Tablet PO (17:32)
[2023-09-14] MEDS: Midodrine HCl 5 MG Tablet 10 MG PO (17:33)
--- NOTE | 2023-09-14 17:55 | PCM.HP.STD ---
HPI - General General Date of Admission: 09/14/23 Date of Service: 09/14/23 Chief Complaint: Here for rehabilitation. HPI Narrative 09/08/2023 ADDIS CARRENO, is a 88 Female who presents to [facility] ED with syncope. Found unconscious on commode, unresponsive. Found by son, not talking in AM for several months, thought progression of Parkinson Disease. Fell 2 days ago, hurt right hip. Labs okay, EKG okay. X-ray right hip negative, CT brain negative, CT cervical spine negative, Chest X-ray negative. 09/08/2023 Admit to [facility]. PT/OT for Debility. 09/09/2023 UA negative, WBC 18.7. PT/OT for SNF. 09/09/2023 Mild agitation, Seroquel x 1 dose given. 09/10/2023 PT/OT for TCU. Risperdal QHS for delirium. Monitor anemia. 09/11/2023 Check EEG for syncope. 09/11/2023 EEG showed mild diffuse encephalopathy, no seizure activity. 09/12/2023 Doing okay, Await Pre-CERT for SNF. PT/OT SNF. 09/13/2023 No issues. Await Pre-CERT TCU. Risperdal helpful for ing. 09/14/2023 Admit to TCU with debility, here for rehabilitation, strengthening, prior to discharge home alone or possibly to [place]. [facility] Medical History (Updated 09/14/23 @ 18:[address] Howard Zimmerman MD) Brain TIA CKD (chronic kidney disease), stage II History of atrial myxoma Hyperlipidemia Hypertension Lymphoma Nonrheumatic mitral (valve) prolapse Nonrheumatic mitral valve regurgitation Nonrheumatic tricuspid valve regurgitation Parkinsons disease Parotid tumor Premature atrial contractions Premature ventricular contraction Home Medications multivitamin 1 tab PO DAILY vitamin 11/20/18 [History Last Taken 01/15/23] carbidopa 25 mg-levodopa 100 mg tablet 2 tab PO TID parkinsons 01/05/23 [History Last Taken 06/28/23 16:20] aspirin 81 mg chewable tablet 81 mg PO BREAKFAST blood thinner 1 month #30 tabs 06/29/23 [Rx Last Taken Unknown] atorvastatin 40 mg tablet 40 mg PO QHS cholesterol 1 month #30 tabs 06/29/23 [Rx Last Taken Unknown] VITAL TEARS 1 drp ophthalmic (eye) PRN PRN DRY EYES 09/08/23 [History Last Taken Unknown] ascorbic acid (vitamin C) 1,000 mg tablet,extended release (C Complex) 1,000 mg PO DAILY supplement 09/08/23 [History Last Taken Unknown] cyanocobalamin (vitamin B-12) 1,000 mcg sublingual tablet 1,000 mcg sublingual DAILY supplement 09/08/23 [History Last Taken Unknown] famotidine 40 mg tablet 40 mg PO DAILY reflux 09/08/23 [History Last Taken Unknown] midodrine 5 mg tablet 10 mg (2 x 5 mg) PO TIDCM keep BP from dropping #0 tabs 09/14/23 [Rx Last Taken Unknown] risperidone 0.25 mg tablet 0.25 mg PO QHS sleep #0 tabs 09/14/23 [Rx Last Taken Unknown] Allergy/AdvReac Type Severity Reaction Status Date / Time Penicillins Allergy Rash Verified 07/28/23 09:19 tramadol AdvReac Other Verified 07/28/23 09:19 Family History Father Heart disease CHF (congestive heart failure) Mother No problems noted. Surgical History History of laparoscopic cholecystectomy History of splenectomy Social History household members: none Smoking Status: Never smoker alcohol intake: current details: occasional substance use type: does not use ROS Constitutional Constitutional: Reports fatigue and weakness; Denies chills, fever(s) or weight gain ENT HEENT: Denies headache(s), nasal congestion or nasal discharge Cardiovascular Cardiovascular: Denies chest pain or palpitations Respiratory/Chest Respiratory/Chest: Denies cough, excessive phlegm production or shortness of breath with exertion Gastrointestinal Gastrointestinal: Denies abdominal pain, nausea or vomiting Genitourinary Genitourinary: Denies dysuria Musculoskeletal Musculoskeletal: Denies joint pain or joint swelling Integumentary Integumentary: Denies rash or wounds Neurologic Neurologic: Denies focal weakness, numbness or tingling Psychiatric Psychiatric: Denies anxiety, auditory hallucinations, depression, homicidal ideation or suicidal ideation Vital Signs Vital Signs Vital Signs: 09/14/23 15:45 Temperature 97.2 F L Temperature Source Temporal Pulse Rate 91 Respiratory Rate 16 Blood Pressure 124/76 H Blood Pressure Mean 92 Blood Pressure Source Monitor Blood Pressure Position Sitting Blood Pressure Location Left Arm Pulse Ox 100 Oxygen Delivery Method Room Air Physical Exam Const alert General Appearance: cooperative HEENT normocephalic Eyes PERRL and EOMs intact bilaterally Neck supple, no JVD and no carotid bruits Resp normal respiratory effort, normal air movement and clear to auscultation bilaterally Cardio regular rate and regular rhythm GI normal to inspection, nondistended, normoactive bowel sounds, non-tender and non-distended Extremity normal capillary refill General Extremity: Negative for edema Skin no rashes or lesions noted General Skin Exam: no breakdown Psych affect normal Appearance: appropriate Assessment & Plan Assessment/Plan (1) Debility: (2) Falls: (3) Syncope: (4) Acute encephalopathy: (5) Parkinson's disease: (6) Brain TIA: (7) Orthostatic hypotension: (8) Hyperlipidemia: QUALIFIERS: Hyperlipidemia type: unspecified Qualified Code(s): E78.5 - Hyperlipidemia, unspecified (9) GERD (gastroesophageal reflux disease): PLAN: Plan 88 year old female with below past medical history hospitalized for syncope, fall, encephalopathy, admitted to TCU with debility, here for rehabilitation, strengthening, prior to disposition determination. Recently, at end of very office visit, I have asked resident if she would be willing to move to congregate living community, she always tells me no. Debility - PT/OT. Pain - Tylenol 1000mg q6 prn pain (1-10). Bowel - senna/colace 1 tablet bid, Magnesium citrate 300ml daily prn. Adult immunization - Administer pneumonia vaccine, covid vaccine, flu vaccine as appropriate. DVT prophylaxis - Hold, anemia. TIA - Aspirin 81mg daily. Hyperlipidemia - Atorvastatin 40mg qhs. Parkinson Disease - Sinemet 25/100mg 2 tablets tidac. GERD - Famotidine 40mg daily. Orthostatic hypotension - Midodrine 10mg tidcm. Nutrition - MVI 1 tablet daily. Vitamin C deficiency - Vitamin C 1000mg daily. Vitamin B12 deficieny - Vitamin B12 1000mcg daily. Dry Eyes - Artificial Tears 1gtt ou daily prn. Encephalopathy - Risperdal 0.125mg qhs x7 days, then stop (GDR).
[2023-09-14] MEDS: RisperiDONE 0.25 MG Tablet 0.125 MG PO (22:03)
[2023-09-14] MEDS: Senna/Docusate Sodium 1 Tablet PO (22:03)
[2023-09-14] MEDS: Atorvastatin Calcium 40 MG Tablet PO (22:03)
[2023-09-15 06:01] LABS: Absolute Lymphocyte Count 5.49 X10^3/uL (0.83-4.51); Absolute Neutrophil Count 4.8 X10^3/uL (2.0-7.7); Basophil# 0.28 X10^3/uL; Basophil% 2.2 % (0-1); Eosinophil# 0.81 X10^3/uL; Eosinophils% 6.4 % (0-5); Hematocrit 36.3 % (37-47); Hemoglobin 11.6 g/dL (12.0-15.0); Lymphocyte # 5.49 X10^3/ul (0.83-4.51); Lymphocyte % 43.1 % (19-41); Mean Corpuscular Volume 93.8 fL (81-99); Mean Platelet Vol. 9.8 fl (6.2-12.0); Monocyte# 1.33 X10^3/uL; Monocyte% 10.4 % (0-10); NRBC Flagged by Analyzer 0 % (0-5); Neutrophil # 4.78 X10^3/uL (2.7-7.7); Neutrophil % 37.6 % (47-70); POSITIVE DIFFERENTIAL YES; POSITIVE MORPHOLOGY YES; Platelet Count 343 K/mm3 (150-450); RBC Distribution Width SD 47.8 fl (35.1-43.9); Red Blood Count 3.87 M/mm3 (4.2-5.4); White Blood Count 12.7 K/mm3 (4.4-11.0)
[2023-09-15 06:04] LABS: Differential Indicated SCAN CRITERIA MET
[2023-09-15] MEDS: Carbidopa/Levodopa 25/100 Tablet PO ×3 (06:09→17:15)
[2023-09-15 06:48] LABS: Anion Gap 4 (5-15); BUN 40 mg/dL (7-18); BUN/Creat Ratio 38.1 RATIO (10-20); Calcium,Total 9.1 mg/dL (8.5-10.1); Chloride 107 mmol/L (98-107); Creatinine, Serum 1.05 mg/dL (0.55-1.02); EST Glomerular Filtration Rate 53 mL/min (>60); Est Glom Filt Rate - Afr Amer 64 mL/min (>60); Glucose 84 mg/dL (74-106); Potassium 4.4 mmol/L (3.5-5.1); Sodium Level 139 mmol/L (136-145)
[2023-09-15 07:39] LABS: Differential Comment SCANNED
[2023-09-15 09:43] VITALS: BP 92/62; PULSE 72; RESP 18; TEMP 37.1; O2SAT 98
[2023-09-15] MEDS: Aspirin 81 MG TAB.CHEW PO (09:44)
[2023-09-15] MEDS: Ensure Plus High Protein 120 ML LIQUID PO ×3 (09:44→18:10)
[2023-09-15] MEDS: Midodrine HCl 5 MG Tablet 10 MG PO ×3 (09:44→18:11)
[2023-09-15] MEDS: Ascorbic Acid 500 MG Tablet 1000 MG PO (09:45)
[2023-09-15] MEDS: Multivitamins,Therapeutic Tablet 1 TABLET PO (09:45)
[2023-09-15] MEDS: Senna/Docusate Sodium 1 Tablet PO ×2 (09:47→21:59)
[2023-09-15] MEDS: Cyanocobalamin 500 MCG Tablet 1000 MCG PO (09:47)
[2023-09-15] MEDS: Famotidine 20 MG Tablet 40 MG PO (09:48)
[2023-09-15] MEDS: Tuberculin,Purif.prot.deriv. 50 TU/ML Vial 0.1 ML ID (09:51)
--- NOTE | 2023-09-15 11:57 | NURSING ---
Pt's Eye drops returned to son d/t being opened previously and no date on bottle. Only good for 7 days in fridge. Pt stated she has more in freezer at home and son agreed to bring them in.
[2023-09-15 13:20] VITALS: BP 108/47
[2023-09-15 13:49] VITALS: BP 98/66; PULSE 81; RESP 18; TEMP 36.8; O2SAT 94
--- NOTE | 2023-09-15 13:51 | NURSING ---
Dr. Zimmerman updated on pt's request for Eye drops from home per Dr. Erasmo cabrera to order once family bring eye drops in. Order read back.
[2023-09-15] MEDS: Magnesium Citrate 300 ML PO (18:18)
[2023-09-15] MEDS: RisperiDONE 0.25 MG Tablet 0.125 MG PO (22:00)
[2023-09-15] MEDS: Atorvastatin Calcium 40 MG Tablet PO (22:01)
[2023-09-16 05:03] VITALS: PULSE 75; RESP 16; O2SAT 95
[2023-09-16] MEDS: Carbidopa/Levodopa 25/100 Tablet PO ×3 (06:28→17:48)
[2023-09-16] MEDS: Ensure Plus High Protein 120 ML LIQUID PO ×2 (08:28→17:49)
[2023-09-16] MEDS: Aspirin 81 MG TAB.CHEW PO (08:29)
[2023-09-16] MEDS: Midodrine HCl 5 MG Tablet 10 MG PO ×3 (08:29→17:49)
[2023-09-16] MEDS: Multivitamins,Therapeutic Tablet 1 TABLET PO (08:30)
[2023-09-16] MEDS: Senna/Docusate Sodium 1 Tablet PO ×2 (10:41→21:32)
[2023-09-16] MEDS: Famotidine 20 MG Tablet 40 MG PO (10:41)
[2023-09-16] MEDS: Ascorbic Acid 500 MG Tablet 1000 MG PO (10:41)
[2023-09-16] MEDS: Cyanocobalamin 500 MCG Tablet 1000 MCG PO (10:41)
[2023-09-16 15:59] VITALS: BP 137/83; PULSE 70; RESP 16; TEMP 36.3; O2SAT 98
[2023-09-16] MEDS: RisperiDONE 0.25 MG Tablet 0.125 MG PO (21:31)
[2023-09-16] MEDS: Atorvastatin Calcium 40 MG Tablet PO (21:32)
--- NOTE | 2023-09-17 07:50 | NURSING ---
Patient had emesis x1 this morning. Was assisted with cleaning, changing clothes, assisted to recliner. Gingerale given per request. Asked that Sinemet be held until her stomach felt better. Updated on-coming nurse.
[2023-09-17] MEDS: proCHLORPERazine 5 MG Tablet PO (08:20)
[2023-09-17 09:00] VITALS: BP 98/65
[2023-09-17] MEDS: Carbidopa/Levodopa 25/100 Tablet PO ×3 (09:30→17:11)
[2023-09-17] MEDS: Aspirin 81 MG TAB.CHEW PO (09:31)
[2023-09-17] MEDS: Famotidine 20 MG Tablet 40 MG PO (09:31)
[2023-09-17] MEDS: Midodrine HCl 5 MG Tablet 10 MG PO ×3 (09:31→17:11)
--- NOTE | 2023-09-17 10:30 | NS ---
MST score = 2. UBW not known
--- NOTE | 2023-09-17 10:42 | NURSING ---
Fur Dyer Note; Activity Asset: Roma Maurice is independent in her choice of daily activities. Her family will visit and yarsanism family. She welcomes visits from the filter bed placer and therapy dog when available. She has her bible and devotional she will read along w/word puzzles and will watch tv as well. 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 Staff will continue to remind her of weekly activities and respect her right to say no.
--- NOTE | 2023-09-17 11:23 | PCM.PN.RX ---
Progress Note - Pharmacy Subjective/Objective Subjective/Objective: Subjective: 88 YOF admitted to TCU 09/14/23 s/p hospitalization for syncope, fall,unconscious/unresponsive,progression of Parkinson Disease. Admitted to TCU for rehabilitation and strengthening prior to discharge to home. Objective: Allergies Penicillins Allergy (Verified 07/28/23 09:19) Rash tramadol Adverse Reaction (Verified 07/28/23 09:19) Other upset stomach Current Medications Generic Name Dose Route Start Last Admin Trade Name Singhq PRN Reason Stop Dose Admin Ascorbic Acid 1,000 mg 09/15/23 10:00 09/16/23 10:41 Ascorbic Acid 500 Mg Tablet PO 1,000 mg DAILY ARIA Administration Aspirin 81 mg 09/15/23 08:00 09/17/23 09:31 Aspirin 81 Mg Tab.Chew PO 81 mg BREAKFAST ARIA Administration Atorvastatin Calcium 40 mg 09/14/23 22:00 09/16/23 21:32 Atorvastatin Calcium 40 Mg Tablet PO 40 mg QHS ARIA Administration Carbidopa/Levodopa 2 tablet 09/14/23 16:45 09/17/23 09:30 Carbidopa/Levodopa 25/100 Tablet PO 2 tablet TIDAC ARIA Administration Cyanocobalamin 1,000 mcg 09/15/23 10:00 09/16/23 10:41 Cyanocobalamin 500 Mcg Tablet PO 1,000 mcg DAILY ARIA Administration Famotidine 40 mg 09/15/23 10:00 09/17/23 09:31 Famotidine 20 Mg Tablet PO 40 mg DAILY ARIA Administration Magnesium Citrate 300 ml 09/14/23 18:10 09/15/23 18:18 Magnesium Citrate 300 Ml PO 150 ml DAILY PRN Administration Constipation Midodrine 10 mg 09/14/23 17:45 09/17/23 09:31 Midodrine Hcl 5 Mg Tablet PO 10 mg TIDCM ARIA Administration Multivitamins 1 tablet 09/15/23 08:00 09/16/23 08:30 Multivitamins,Therapeutic Tablet PO 1 tablet DAILYCM ARIA Administration Non-Formulary Medication 1 drp 09/16/23 22:00 09/16/23 22:42 Vital Tears EACH EYE 1 drp QHS ARIA Administration Nutritional Formula (Lactose Free) 120 ml 09/15/23 07:45 09/17/23 09:38 Ensure Plus High Protein 120 Ml Liquid PO Not Given TIDCM ARIA Prochlorperazine Maleate 5 mg 09/17/23 07:51 09/17/23 08:20 Prochlorperazine 5 Mg Tablet PO 5 mg Q6H PRN PRN Administration NAUSEA/VOMITING Risperidone 0.125 mg 09/14/23 22:00 09/16/23 21:31 Risperidone 0.25 Mg Tablet PO 09/21/23 22:01 0.125 mg QHS ARIA Administration Protocol Senna/Docusate Sodium 1 tablet 09/14/23 22:00 09/16/23 21:32 Senna/Docusate Sodium 1 Tablet PO 1 tablet BID ARIA Administration Tuberculin PPD 0.1 ml 09/22/23 10:00 Tuberculin,Purif.Prot.Deriv. 50 Tu/Ml Vial ID 09/22/23 10:01 X1 ONE Problem List (Updated 09/14/23 @ 18:[address] Howard Zimmerman MD) GERD (gastroesophageal reflux disease) (Acute) Orthostatic hypotension (Acute) Brain TIA (Acute) Acute encephalopathy (Acute) Syncope (Acute) Falls (Acute) Debility (Acute) Parkinson's disease (Acute) Hyperlipidemia (Chronic) Vital Signs Temp Pulse Resp BP Pulse Ox O2 Del Method 97.4 F L 70 16 137/83 H 98 Room Air 09/16/23 15:59 09/16/23 15:59 09/16/23 15:59 09/16/23 15:59 09/16/23 15:59 09/16/23 15:59 Oxygen Delivery Method Room Air Weight: 43.636 kg Body Mass Index (BMI) 18.8 Sodium 139 mmol/L (136-145) 09/15/23 05:26 Potassium 4.4 mmol/L (3.5-5.1) 09/15/23 05:26 Chloride 107 mmol/L (98-107) 09/15/23 05:26 Carbon Dioxide 28.0 mmol/L (21.0-32.0) 09/15/23 05:26 Anion Gap 4 (5-15) L 09/15/23 05:26 BUN 40 mg/dL (7-18) H 09/15/23 05:26 Creatinine 1.05 mg/dL (0.55-1.02) H 09/15/23 05:26 Est GFR (MDRD) Af Amer 64 mL/min (>60) 09/15/23 05:26 Est GFR (MDRD) Non-Af 53 mL/min (>60) L 09/15/23 05:26 BUN/Creatinine Ratio 38.1 RATIO (10-20) H 09/15/23 05:26 Glucose 84 mg/dL (74-106) 09/15/23 05:26 Assessment/Plan: 1. CAD/HDL:
--- NOTE | 2023-09-17 11:44 | PCM.PN.DRR ---
Documented by User: Antonia Christian 09/17/23 16:49 TCU RX Drug Regimen Review Subjective/Objective Subjective/Objective: Subjective: 88 YOF presents to [facility] ED 09/08/23 due to fall with diagnosis of micturition syncope admitted to TCU 09/14/23 with debility, here for rehabilitation, strengthening prior to disposition determination. Of note, orthostatic vital signs were negative when done on the inpatient side, midodrine dose also increased during stay. Objective: Allergies Penicillins Allergy (Verified 07/28/23 09:19) Rash tramadol Adverse Reaction (Verified 07/28/23 09:19) Other upset stomach Current Medications Generic Name Dose Route Start Last Admin Trade Name Freq PRN Reason Stop Dose Admin Ascorbic Acid 1,000 mg 09/15/23 10:00 09/16/23 10:41 Ascorbic Acid 500 Mg Tablet PO 1,000 mg DAILY ARIA Administration Aspirin 81 mg 09/15/23 08:00 09/17/23 09:31 Aspirin 81 Mg Tab.Chew PO 81 mg BREAKFAST ARIA Administration Atorvastatin Calcium 40 mg 09/14/23 22:00 09/16/23 21:32 Atorvastatin Calcium 40 Mg Tablet PO 40 mg QHS ARIA Administration Carbidopa/Levodopa 2 tablet 09/14/23 16:45 09/17/23 09:30 Carbidopa/Levodopa 25/100 Tablet PO 2 tablet TIDAC ARIA Administration Cyanocobalamin 1,000 mcg 09/15/23 10:00 09/16/23 10:41 Cyanocobalamin 500 Mcg Tablet PO 1,000 mcg DAILY ARIA Administration Famotidine 40 mg 09/15/23 10:00 09/17/23 09:31 Famotidine 20 Mg Tablet PO 40 mg DAILY ARIA Administration Magnesium Citrate 300 ml 09/14/23 18:10 09/15/23 18:18 Magnesium Citrate 300 Ml PO 150 ml DAILY PRN Administration Constipation Midodrine 10 mg 09/14/23 17:45 09/17/23 09:31 Midodrine Hcl 5 Mg Tablet PO 10 mg TIDCM ARIA Administration Multivitamins 1 tablet 09/15/23 08:00 09/16/23 08:30 Multivitamins,Therapeutic Tablet PO 1 tablet DAILYCM ARIA Administration Non-Formulary Medication 1 drp 09/16/23 22:00 09/16/23 22:42 Vital Tears EACH EYE 1 drp QHS ARIA Administration Nutritional Formula (Lactose Free) 120 ml 09/15/23 07:45 09/17/23 09:38 Ensure Plus High Protein 120 Ml Liquid PO Not Given TIDCM [facility] Prochlorperazine Maleate 5 mg 09/17/23 07:51 09/17/23 08:20 Prochlorperazine 5 Mg Tablet PO 5 mg Q6H PRN PRN Administration NAUSEA/VOMITING Risperidone 0.125 mg 09/14/23 22:00 09/16/23 21:31 Risperidone 0.25 Mg Tablet PO 09/21/23 22:01 0.125 mg QHS ARIA Administration Protocol Senna/Docusate Sodium 1 tablet 09/14/23 22:00 09/16/23 21:32 Senna/Docusate Sodium 1 Tablet PO 1 tablet BID ARIA Administration Tuberculin PPD 0.1 ml 09/22/23 10:00 Tuberculin,Purif.Prot.Deriv. 50 Tu/Ml Vial ID 09/22/23 10:01 X1 ONE Problem List GERD (gastroesophageal reflux disease) (Acute) Orthostatic hypotension (Acute) Brain TIA (Acute) Acute encephalopathy (Acute) Syncope (Acute) Falls (Acute) Debility (Acute) Parkinson's disease (Acute) Hyperlipidemia (Chronic) Vital Signs Temp Pulse Resp BP Pulse Ox O2 Del Method 97.4 F L 70 16 137/83 H 98 Room Air 09/16/23 15:59 09/16/23 15:59 09/16/23 15:59 09/16/23 15:59 09/16/23 15:59 09/16/23 15:59 Oxygen Delivery Method Room Air Weight: 43.636 kg Body Mass Index (BMI) 18.8 Sodium 139 mmol/L (136-145) 09/15/23 05:26 Potassium 4.4 mmol/L (3.5-5.1) 09/15/23 05:26 Chloride 107 mmol/L (98-107) 09/15/23 05:26 Carbon Dioxide 28.0 mmol/L (21.0-32.0) 09/15/23 05:26 Anion Gap 4 (5-15) L 09/15/23 05:26 BUN 40 mg/dL (7-18) H 09/15/23 05:26 Creatinine 1.05 mg/dL (0.55-1.02) H 09/15/23 05:26 Est GFR (MDRD) Af Amer 64 mL/min (>60) 09/15/23 05:26 Est GFR (MDRD) Non-Af 53 mL/min (>60) L 09/15/23 05:26 BUN/Creatinine Ratio 38.1 RATIO (10-20) H 09/15/23 05:26 Glucose 84 mg/dL (74-106) 09/15/23 05:26 Assessment/Plan: 1. FALLS: Medications evaluated for risk of fall, although neuro diagnosed recent fall as micturition syncope. Following meds can be associated with falls: carbidopa/levodopa 25/100 2 tabs po tidac, risperidone 0.125mg po qhs take until 09/21/23 then stop. Risperidone already being tapered. Patient has diagnosis of Parkinsons necessitating carbidopa/levodopa, however, please monitor stability upon standing and walking and sx of orthostasis. If patient becomes orthostatic positive, may need to reduce carbidopa/levodopa dose. 2. HLD: Lipitor 40mg Po QHS. Please monitor AST (38 on 09/10/23) and ALT (11 on 09/09/33) as well as muscle weakness and pain. Lipid panel annually or sooner if clinically indicated. 2. GERD: Pepcid 40mg PO daily. Please continue to monitor stomach upset and heartburn. Please encourage non-pharmacologic therapies to help minimize GERD flare-ups. 3. TIA: Aspirin 81mg Po daily. Please monitor for a GI bleed, blood in stool or urine, repeat HGB as necessary ( HGB 11.6 on 09/15/23) 4. PARKINSON DISEASE: Sinemet 25/100mg (2) tablets Po TIDAC. Please monitor for nausea/vomiting/GI upset (did use dose of prochlorperazine on 09/17/23). If N/V not controlled, may need to consider dose reduction if clinically possible. Monitor for psychiatric symptoms and Parkinsons symptoms. Please encourage non-pharmacologic therapies use of cane and/or walker for walking stability. 5. ORTHOSTATIC HYPOTENSION: Midodrine 10mg Po tidcm. BP on TCU has ranged from 92/62-137/83. Please continue to monitor patient BP. Consider please checking orthostatic BP at regular intervals given h/o falls and on meds which can cause orthostasis. 6. ENCEPHALOPATHY/SUNDOWNING: Risperdal 0.125mg Po qhs x 7 days then stop 09/21/23 (GDR). Monitor for neurological/behavior changes, sedation, falls. 7. Bowel: Senna/Docusate 1 tab Po BID (pt refused a dose since admit), Magnesium Citrate 300 ML Po daily prn (given 09/14) . BM on 09/15 after receiving mag citrate, may need to increase Senna/Docusate if continued need for mag citrate. Continue to monitor for constipation/diarrhea, hydration status. 8. Nausea/Vomiting: prochlorperazine 5mg po q6h prn. Dose given 09/17/23 for nausea. Continue to monitor nausea/vomiting. 9. Dry Eyes: ARtificial Tears 1 drop both eyes daily as needed. Continue to monitor for dry eyes 10. Vitamins/Supplements: Ascorbic Acid Po 1000mg daily, Cyanocobalamin Po 1000mcg daily, Multivitamin po daily. Ensure plus high protein tidcm. PLease consider monitoring for nutritional status, oral in take, weight and Albumin if clinically warrented. Assessment/Plan for indications treated with psychotropic medications: 1. Risperdal 0.125mg po qhs x7 days then stop. (stop date 09/21/23). Medical chart and medication regimen reviewed. The following medication irregularities or issues were identified: 1. Given h/o falls, carbidopa/levodopa therapy and use of midodrine, consider checking orthostatic vital signs periodically to monitor status. Date Date of Note:: 09/17/23 Documented by User: Dr. Howard Zimmerman MD 09/17/23 17:09 TCU RX Drug Regimen Review Provider Comments Provider responsibility Provider Comments to Recommendations by Pharmacy: Agree
[2023-09-17] MEDS: Multivitamins,Therapeutic Tablet 1 TABLET PO (12:03)
[2023-09-17] MEDS: Cyanocobalamin 500 MCG Tablet 1000 MCG PO (12:03)
[2023-09-17] MEDS: Ascorbic Acid 500 MG Tablet 1000 MG PO (12:03)
[2023-09-17] MEDS: Ensure Plus High Protein 120 ML LIQUID PO ×2 (12:06→17:20)
[2023-09-17 12:45] VITALS: BP 96/62
--- NOTE | 2023-09-17 13:03 | NURSING ---
Offered covid vaccine, VIS provided. Patient refuses at this time.
[2023-09-17 13:59] VITALS: BP 99/61; PULSE 94; RESP 17; TEMP 37.1; O2SAT 96
--- NOTE | 2023-09-17 16:23 | NURSING ---
Patient had episode of 100 ml thick emesis with food residue this AM and continues to have nausea. Dr. Zimmerman made aware and NO for Compazine PRN. Dose administered and no more emesis this shift but refused breakfast and lunch d/t stomach feeling tender. Patient was able to eat crackers and ensure with no vomiting. Son made aware of emesis this shift.
[2023-09-17 17:09] VITALS: BP 110/69; BP 114/70; BP 141/73; PULSE 83; PULSE 87; PULSE 91
[2023-09-17] MEDS: RisperiDONE 0.25 MG Tablet 0.125 MG PO (20:02)
[2023-09-17] MEDS: CARBOXYMETHYLCELLULOSE SODIUM 1 DRP DROPS OPHTHALMIC (20:02)
[2023-09-17] MEDS: Senna/Docusate Sodium 1 Tablet PO (20:03)
[2023-09-17] MEDS: Atorvastatin Calcium 40 MG Tablet PO (20:03)
[2023-09-17 20:08] VITALS: RESP 16
[2023-09-18] MEDS: CARBOXYMETHYLCELLULOSE SODIUM 1 DRP DROPS OPHTHALMIC ×3 (06:04→20:38)
[2023-09-18] MEDS: Carbidopa/Levodopa 25/100 Tablet PO ×3 (06:57→17:09)
[2023-09-18 07:55] VITALS: PULSE 70
[2023-09-18] MEDS: Ascorbic Acid 500 MG Tablet 1000 MG PO (08:03)
[2023-09-18] MEDS: Famotidine 20 MG Tablet 40 MG PO (08:03)
[2023-09-18] MEDS: Ensure Plus High Protein 120 ML LIQUID PO ×3 (08:03→17:09)
[2023-09-18] MEDS: Senna/Docusate Sodium 1 Tablet PO ×2 (08:04→20:39)
[2023-09-18] MEDS: Multivitamins,Therapeutic Tablet 1 TABLET PO (08:04)
[2023-09-18] MEDS: Midodrine HCl 5 MG Tablet 10 MG PO ×2 (08:04→11:49)
[2023-09-18] MEDS: Cyanocobalamin 500 MCG Tablet 1000 MCG PO (08:04)
[2023-09-18] MEDS: Aspirin 81 MG TAB.CHEW PO (08:04)
[2023-09-18 10:22] VITALS: BMI 18.5
[2023-09-18 13:35] VITALS: BP 107/71; PULSE 75; RESP 14; TEMP 36.1; O2SAT 95
--- NOTE | 2023-09-18 15:38 | CASEMGMT ---
Social Work SW met with patient at bedside to complete initial intake assessment. SW introduced self and role. Patient is agreeable to complete assessment at this time. SW verified patient's contact information and updated contacts. Patient confirmed code status as [id number]. SW confirmed DPOA status. Patient has advanced directive scanned into medical records. Patient's Durable Power of Attorny is daughter in law, Sindhu Haynes. SW educated patient of Medicare benefits and copay. Patient was informed of [employer] Medicare coverage and NRD of 09/24. The patient's goals are to return home with prior level of care. Patient has history of [facility] and would like services, if recommended at discharge. The patient has care planning meeting scheduled 09/18. SW will continue to follow for discharge planning LOCO Deutsch
--- NOTE | 2023-09-18 16:19 | CHAPLAIN ---
Type of Pastoral Visit _x__ Initial Visit ___ Follow-up Visit ___ On-call Visit ___ General Patient Visit ___ Spiritual Assessment ___ Family Conference ___ Bereavement ___ Rapid Response ___ Code Blue ___ Other (describe below) Pastoral Care Referral From _x__ Patient ___ Family ___ Nurse ___ Physician ___ Buncher Machine ___ Director Of Promotions ___ Other (describe below) Sacrament/Intervention _x__ Active listening ___ Anointing ___ Druze ___ Bereavement ___ Communion _x__ Karly exploration ___ _x__ Life review ___ Prayer ___ Reconciliation ___ Sacrament of Sick ___ Supportive presence ___ Wedding ___ Other (describe below) Pastoral Comments It was a pleasant visit with life review, discussion on ramos of which she had many in her room, and her goals of returning home; pt is and has lost a son in but has good family support and a good neighborhood situation;
[2023-09-18 17:12] VITALS: BP 164/90; PULSE 74
[2023-09-18] MEDS: RisperiDONE 0.25 MG Tablet 0.125 MG PO (20:39)
[2023-09-18] MEDS: Atorvastatin Calcium 40 MG Tablet PO (20:39)
[2023-09-18 20:49] VITALS: BP 125/84; PULSE 74
[2023-09-19] MEDS: CARBOXYMETHYLCELLULOSE SODIUM 1 DRP DROPS OPHTHALMIC ×2 (06:46→15:17)
[2023-09-19] MEDS: Magnesium Citrate 300 ML PO (06:46)
[2023-09-19] MEDS: Carbidopa/Levodopa 25/100 Tablet PO ×3 (06:50→16:25)
[2023-09-19] MEDS: Famotidine 20 MG Tablet 40 MG PO (08:49)
[2023-09-19] MEDS: Ascorbic Acid 500 MG Tablet 1000 MG PO (08:49)
[2023-09-19] MEDS: Midodrine HCl 5 MG Tablet 10 MG PO ×3 (08:49→16:25)
[2023-09-19] MEDS: Cyanocobalamin 500 MCG Tablet 1000 MCG PO (08:49)
[2023-09-19] MEDS: Multivitamins,Therapeutic Tablet 1 TABLET PO (08:50)
[2023-09-19] MEDS: Aspirin 81 MG TAB.CHEW PO (08:50)
[2023-09-19] MEDS: Ensure Plus High Protein 120 ML LIQUID PO ×2 (12:00→16:25)
[2023-09-19 15:06] VITALS: BP 111/72; PULSE 79; RESP 16; TEMP 36.8; O2SAT 95
--- NOTE | 2023-09-19 15:29 | CASEMGMT ---
Social Work IDT met with patient, ALEKSANDR, BELINDA, yvon Manley, Gonzalez and Lalo for care plan meeting. Discussed patient progress with PT/OT/ST. JERMAIN informed patient and family of [facility] Insurance authorization; NRD 09/24. Patient is SBA with transfers and ambulated 300ft on 09/18/23. Patient's family informed JERMAIN that the patient has home health aid coming to the home for a few hours, but no overnight supervision and care in the home. Patient was going to [facility] prior to hospitalization for outpatient therapy 3 times a week. The patient's family is interested in [facility] placement. Patient is interested in [facility]. SW discussed assisted living placement and home health care. SW will follow up with the patient's family regarding care. JERMAIN will continue to follow for discharge planning. LOCO Deutsch
[2023-09-19 22:00] VITALS: PULSE 60; RESP 16; O2SAT 96
[2023-09-19] MEDS: Atorvastatin Calcium 40 MG Tablet PO (22:05)
[2023-09-19 22:06] VITALS: BP 169/85; PULSE 60
[2023-09-19] MEDS: Metoprolol(XL)Succ 25 MG Tablet PO (22:06)
[2023-09-19] MEDS: RisperiDONE 0.25 MG Tablet 0.125 MG PO (22:06)
[2023-09-19] MEDS: [UNRECOGNIZED DRUG - OTHER] EACH EYE (22:12)
[2023-09-20] MEDS: [UNRECOGNIZED DRUG - OTHER] EACH EYE ×3 (06:10→21:34)
[2023-09-20] MEDS: Carbidopa/Levodopa 25/100 Tablet PO ×3 (06:10→17:52)
[2023-09-20 06:21] VITALS: PULSE 61; RESP 16; O2SAT 93
[2023-09-20] MEDS: Midodrine HCl 5 MG Tablet 10 MG PO ×2 (08:43→13:23)
[2023-09-20] MEDS: Multivitamins,Therapeutic Tablet 1 TABLET PO (08:43)
[2023-09-20] MEDS: Aspirin 81 MG TAB.CHEW PO (08:43)
[2023-09-20 08:44] VITALS: BP 90/57; PULSE 76
[2023-09-20] MEDS: Ascorbic Acid 500 MG Tablet 1000 MG PO (08:44)
[2023-09-20] MEDS: Metoprolol(XL)Succ 25 MG Tablet PO (08:44)
[2023-09-20] MEDS: Cyanocobalamin 500 MCG Tablet 1000 MCG PO (08:44)
[2023-09-20] MEDS: Famotidine 20 MG Tablet 40 MG PO (08:44)
[2023-09-20] MEDS: Ensure Plus High Protein 120 ML LIQUID PO ×2 (08:44→13:22)
--- NOTE | 2023-09-20 10:07 | CASEMGMT ---
Addendum entered by Benjamin Mcneill 09/20/23 12:22: [facility] on[facility] patient to determine if the patient is appropriate for group home care or Assisted living. [facility] has spoken with patient's son to confirm interest in placement. Original Note: Social Work SW spoke with patient's son, Lalo to discuss transition of care plans. Patients son requested a referral be sent to [facility]. SW submitted referral to [facility] via [facility]. SW will continue to follow to assist with discharge planning. LOCO Deutsch
[2023-09-20 13:00] VITALS: BP 112/63
[2023-09-20 15:57] VITALS: BP 90/57; PULSE 62; RESP 16; TEMP 36.8; O2SAT 92
[2023-09-20 17:00] VITALS: BP 156/86
[2023-09-20] MEDS: Atorvastatin Calcium 40 MG Tablet PO (21:31)
[2023-09-20] MEDS: RisperiDONE 0.25 MG Tablet 0.125 MG PO (21:31)
[2023-09-20] MEDS: Senna/Docusate Sodium 1 Tablet PO (21:33)
[2023-09-21] MEDS: [UNRECOGNIZED DRUG - OTHER] EACH EYE ×3 (05:20→20:43)
[2023-09-21 06:00] LABS: Absolute Lymphocyte Count 4.91 X10^3/uL (0.83-4.51); Absolute Neutrophil Count 5.7 X10^3/uL (2.0-7.7); Basophil# 0.22 X10^3/uL; Basophil% 1.8 % (0-1); Eosinophil# 0.26 X10^3/uL; Eosinophils% 2.1 % (0-5); Hematocrit 34.9 % (37-47); Hemoglobin 11.1 g/dL (12.0-15.0); Lymphocyte # 4.91 X10^3/ul (0.83-4.51); Lymphocyte % 39.9 % (19-41); Mean Corp Hgb Conc 31.8 g/dL (32-36); Mean Corpuscular Hgb 29.9 pg (27.0-32.0); Mean Corpuscular Volume 94.1 fL (81-99); Mean Platelet Vol. 10.1 fl (6.2-12.0); Monocyte# 1.21 X10^3/uL; Monocyte% 9.8 % (0-10); NRBC Flagged by Analyzer 0 % (0-5); Neutrophil # 5.67 X10^3/uL (2.7-7.7); Platelet Count 370 K/mm3 (150-450); RBC Distribution Width CV 13.8 % (11.6-14.6); Red Blood Count 3.71 M/mm3 (4.2-5.4); White Blood Count 12.3 K/mm3 (4.4-11.0)
--- NOTE | 2023-09-21 06:34 | NURSING ---
Patient declines Sinemet as ordered at this time, when offered patient states no. Alert to self. Baseline confusion. Call light in reach. No distress observed or reported. Personal alarm in place per order and functioning properly.
[2023-09-21 06:43] LABS: Anion Gap 4 (5-15); BUN 25 mg/dL (7-18); Calcium,Total 8.6 mg/dL (8.5-10.1); Chloride 104 mmol/L (98-107); Creatinine, Serum 1.04 mg/dL (0.55-1.02); EST Glomerular Filtration Rate 53 mL/min (>60); Est Glom Filt Rate - Afr Amer 64 mL/min (>60); Estimated Creatinine Clearance 25.92 ml/min; Glucose 85 mg/dL (74-106); Sodium Level 136 mmol/L (136-145)
[2023-09-21] MEDS: Carbidopa/Levodopa 25/100 Tablet PO ×3 (08:40→17:12)
[2023-09-21] MEDS: Midodrine HCl 5 MG Tablet 10 MG PO ×2 (08:41→13:53)
[2023-09-21] MEDS: Aspirin 81 MG TAB.CHEW PO (08:42)
[2023-09-21] MEDS: Multivitamins,Therapeutic Tablet 1 TABLET PO (08:42)
[2023-09-21] MEDS: Senna/Docusate Sodium 1 Tablet PO ×2 (11:10→20:43)
[2023-09-21] MEDS: Famotidine 20 MG Tablet 40 MG PO (11:10)
[2023-09-21 11:11] VITALS: PULSE 55
[2023-09-21] MEDS: Cyanocobalamin 500 MCG Tablet 1000 MCG PO (11:12)
[2023-09-21] MEDS: Ascorbic Acid 500 MG Tablet 1000 MG PO (11:12)
--- NOTE | 2023-09-21 12:42 | NURSING ---
Rivet Tester Note; MDS for 09/21/2023 Complete
[2023-09-21] MEDS: Ensure Plus High Protein 120 ML LIQUID PO ×2 (13:51→17:13)
--- NOTE | 2023-09-21 14:02 | CASEMGMT ---
Social Work SW met with patient and completed MDS interviews. BIMS 05/02 PHQ2 0/2 DANIEL Phillips
[2023-09-21 16:00] VITALS: BP 158/82; PULSE 62; RESP 14; TEMP 36.3; O2SAT 97
[2023-09-21] MEDS: Atorvastatin Calcium 40 MG Tablet PO (20:40)
[2023-09-21] MEDS: RisperiDONE 0.25 MG Tablet 0.125 MG PO (20:41)
[2023-09-21 22:57] VITALS: PULSE 60; RESP 16; O2SAT 95
[2023-09-22] VITALS (7 sets, daily range): BP systolic 87–133; BP diastolic 49–80; PULSE 56–86; RESP 16–18; TEMP 36.3; O2SAT 95–98
[2023-09-22] MEDS: Carbidopa/Levodopa 25/100 Tablet PO ×3 (06:01→16:55)
[2023-09-22] MEDS: [UNRECOGNIZED DRUG - OTHER] EACH EYE ×3 (06:02→21:27)
[2023-09-22] MEDS: Ascorbic Acid 500 MG Tablet 1000 MG PO (08:59)
[2023-09-22] MEDS: Ensure Plus High Protein 120 ML LIQUID PO ×3 (08:59→18:06)
[2023-09-22] MEDS: Multivitamins,Therapeutic Tablet 1 TABLET PO (09:00)
[2023-09-22] MEDS: Aspirin 81 MG TAB.CHEW PO (09:00)
[2023-09-22] MEDS: Famotidine 20 MG Tablet 40 MG PO (09:00)
[2023-09-22] MEDS: Cyanocobalamin 500 MCG Tablet 1000 MCG PO (09:00)
[2023-09-22] MEDS: Midodrine HCl 5 MG Tablet 10 MG PO ×3 (09:01→18:07)
[2023-09-22] MEDS: Senna/Docusate Sodium 1 Tablet PO ×2 (09:01→21:27)
[2023-09-22] MEDS: Metoprolol(XL)Succ 25 MG Tablet PO (11:22)
[2023-09-22] MEDS: Tuberculin,Purif.prot.deriv. 50 TU/ML Vial 0.1 ML ID (11:24)
[2023-09-22] MEDS: Atorvastatin Calcium 40 MG Tablet PO (21:27)
[2023-09-23] MEDS: [UNRECOGNIZED DRUG - OTHER] EACH EYE ×3 (06:40→22:48)
[2023-09-23] MEDS: Carbidopa/Levodopa 25/100 Tablet PO ×3 (06:40→17:22)
[2023-09-23 08:05] VITALS: BP 92/54; PULSE 72; RESP 16; TEMP 36.4; O2SAT 96
[2023-09-23] MEDS: Midodrine HCl 5 MG Tablet 10 MG PO ×2 (08:06→17:22)
[2023-09-23] MEDS: Cyanocobalamin 500 MCG Tablet 1000 MCG PO (08:07)
[2023-09-23] MEDS: Senna/Docusate Sodium 1 Tablet PO ×2 (08:07→22:47)
[2023-09-23] MEDS: Aspirin 81 MG TAB.CHEW PO (08:07)
[2023-09-23] MEDS: Famotidine 20 MG Tablet 40 MG PO (08:07)
[2023-09-23] MEDS: Ascorbic Acid 500 MG Tablet 1000 MG PO (08:07)
[2023-09-23] MEDS: Multivitamins,Therapeutic Tablet 1 TABLET PO (08:08)
[2023-09-23] MEDS: Ensure Plus High Protein 120 ML LIQUID PO ×3 (08:09→17:21)
[2023-09-23 12:20] VITALS: BP 137/79; PULSE 69
[2023-09-23] MEDS: Metoprolol(XL)Succ 25 MG Tablet PO (12:20)
[2023-09-23 14:03] VITALS: BP 140/79; PULSE 65
[2023-09-23 17:23] VITALS: BP 81/53; PULSE 86
[2023-09-23] MEDS: Atorvastatin Calcium 40 MG Tablet PO (22:47)
[2023-09-23 22:50] VITALS: RESP 14; O2SAT 96
[2023-09-24] VITALS (7 sets, daily range): BP systolic 86–132; BP diastolic 47–91; PULSE 56–77; RESP 14–16; TEMP 36.4; O2SAT 97
[2023-09-24] MEDS: Ensure Plus High Protein 120 ML LIQUID PO ×3 (06:13→17:00)
[2023-09-24] MEDS: Carbidopa/Levodopa 25/100 Tablet PO ×3 (06:14→17:00)
[2023-09-24] MEDS: [UNRECOGNIZED DRUG - OTHER] EACH EYE ×3 (06:17→20:50)
[2023-09-24] MEDS: Aspirin 81 MG TAB.CHEW PO (08:23)
[2023-09-24] MEDS: Senna/Docusate Sodium 1 Tablet PO (08:23)
[2023-09-24] MEDS: Famotidine 20 MG Tablet 40 MG PO (08:23)
[2023-09-24] MEDS: Cyanocobalamin 500 MCG Tablet 1000 MCG PO (08:23)
[2023-09-24] MEDS: Multivitamins,Therapeutic Tablet 1 TABLET PO (08:23)
[2023-09-24] MEDS: Midodrine HCl 5 MG Tablet 10 MG PO ×3 (08:23→17:00)
[2023-09-24] MEDS: Ascorbic Acid 500 MG Tablet 1000 MG PO (08:24)
[2023-09-24] MEDS: Metoprolol(XL)Succ 25 MG Tablet PO (11:03)
[2023-09-24] MEDS: Atorvastatin Calcium 40 MG Tablet PO (20:47)
[2023-09-25] MEDS: Carbidopa/Levodopa 25/100 Tablet PO ×3 (06:32→16:33)
[2023-09-25] MEDS: [UNRECOGNIZED DRUG - OTHER] EACH EYE ×3 (06:33→21:24)
[2023-09-25 07:37] VITALS: BP 103/65; PULSE 73
[2023-09-25] MEDS: Ascorbic Acid 500 MG Tablet 1000 MG PO (07:38)
[2023-09-25] MEDS: Ensure Plus High Protein 120 ML LIQUID PO ×3 (07:38→16:33)
[2023-09-25 07:39] VITALS: PULSE 73
[2023-09-25] MEDS: Multivitamins,Therapeutic Tablet 1 TABLET PO (07:39)
[2023-09-25] MEDS: Famotidine 20 MG Tablet 40 MG PO (07:39)
[2023-09-25] MEDS: Senna/Docusate Sodium 1 Tablet PO ×2 (07:39→21:23)
[2023-09-25] MEDS: Cyanocobalamin 500 MCG Tablet 1000 MCG PO (07:39)
[2023-09-25] MEDS: Metoprolol(XL)Succ 25 MG Tablet PO (07:39)
[2023-09-25] MEDS: Midodrine HCl 5 MG Tablet 10 MG PO ×2 (07:39→11:52)
[2023-09-25] MEDS: Aspirin 81 MG TAB.CHEW PO (07:40)
[2023-09-25 15:00] VITALS: BMI 17.9
[2023-09-25 16:35] VITALS: BP 142/70; PULSE 47; RESP 16; TEMP 36.1; O2SAT 94
[2023-09-25 20:07] VITALS: PULSE 70; RESP 14; O2SAT 92
[2023-09-25] MEDS: Atorvastatin Calcium 40 MG Tablet PO (21:23)
[2023-09-26] MEDS: [UNRECOGNIZED DRUG - OTHER] EACH EYE ×3 (06:35→21:31)
[2023-09-26] MEDS: Carbidopa/Levodopa 25/100 Tablet PO ×3 (06:37→18:51)
[2023-09-26 09:44] VITALS: BP 82/57; PULSE 65; RESP 16; TEMP 36.6; O2SAT 92
[2023-09-26] MEDS: Ensure Plus High Protein 120 ML LIQUID PO ×4 (09:50→21:29)
[2023-09-26] MEDS: Midodrine HCl 5 MG Tablet 10 MG PO ×2 (09:50→13:08)
[2023-09-26 09:51] VITALS: PULSE 65
[2023-09-26] MEDS: Aspirin 81 MG TAB.CHEW PO (09:51)
[2023-09-26] MEDS: Famotidine 20 MG Tablet 40 MG PO (09:51)
[2023-09-26] MEDS: Multivitamins,Therapeutic Tablet 1 TABLET PO (09:51)
[2023-09-26] MEDS: Senna/Docusate Sodium 1 Tablet PO (09:51)
[2023-09-26] MEDS: Cyanocobalamin 500 MCG Tablet 1000 MCG PO (09:52)
[2023-09-26] MEDS: Ascorbic Acid 500 MG Tablet 1000 MG PO (09:52)
[2023-09-26 09:54] VITALS: BP 81/54; PULSE 75
--- NOTE | 2023-09-26 09:55 | NURSING ---
PT BP low this AM, held toprol XL, midodorine given as ordered. pt does have parkinsons. denies any symptoms. just finished with ADL's with OT. Pleasant and cooperative.
[2023-09-26 13:11] VITALS: BP 136/66; PULSE 60
--- NOTE | 2023-09-26 15:03 | NURSING ---
pt c/o loose stools last 2 days. new order to change senokot to PRN
[2023-09-26 18:53] VITALS: BP 154/64; PULSE 62
--- NOTE | 2023-09-26 18:53 | NURSING ---
held midodrine tonight d/t elevated BP 154/[address] update [address] Zimmerman for parameters if possible.
[2023-09-26] MEDS: Atorvastatin Calcium 40 MG Tablet PO (21:29)
[2023-09-27] MEDS: Ensure Plus High Protein 120 ML LIQUID PO ×3 (06:12→18:05)
[2023-09-27] MEDS: [UNRECOGNIZED DRUG - OTHER] EACH EYE ×3 (06:12→20:48)
[2023-09-27] MEDS: Carbidopa/Levodopa 25/100 Tablet PO ×3 (06:12→18:05)
[2023-09-27 06:18] VITALS: BP 136/72; PULSE 72
[2023-09-27 08:33] VITALS: BP 71/49; PULSE 83; RESP 18; TEMP 37.1; O2SAT 95
[2023-09-27] MEDS: Senna/Docusate Sodium 1 Tablet PO (08:34)
[2023-09-27] MEDS: Midodrine HCl 5 MG Tablet 10 MG PO ×3 (08:34→18:05)
[2023-09-27] MEDS: Aspirin 81 MG TAB.CHEW PO (08:35)
[2023-09-27] MEDS: Multivitamins,Therapeutic Tablet 1 TABLET PO (08:35)
[2023-09-27] MEDS: Cyanocobalamin 500 MCG Tablet 1000 MCG PO (08:35)
[2023-09-27] MEDS: Famotidine 20 MG Tablet 40 MG PO (08:35)
[2023-09-27] MEDS: Ascorbic Acid 500 MG Tablet 1000 MG PO (08:35)
[2023-09-27 11:23] VITALS: BP 138/77; PULSE 66; RESP 18; O2SAT 97
[2023-09-27 11:25] VITALS: PULSE 66
[2023-09-27] MEDS: Metoprolol(XL)Succ 25 MG Tablet PO (11:25)
--- NOTE | 2023-09-27 11:49 | MDS.RN ---
Information for the MDS was obtained from review of the clinical record, interview of resident, staff, and direct observation of resident?s care.
--- NOTE | 2023-09-27 12:15 | CASEMGMT ---
Social Work JERMAIN contacted patient's son, Lalo Haynes via phone to follow up regarding pending insurance per family request. Patient's son, Lalo informed JERMAIN that he has secured a bed at [facility]; anticipates moving on 10/03 to facility. Lalo inquired about potential for patient to remain on TCU until 10/03. JERMAIN informed Lalo that continued stay is not guaranteed due to insurance currently pending. JERMAIN reviewed patient's current progress with therapy and informed Lalo of a potential end of services due to patient progress. JERMAIN informed Lalo that when review is determined SW will follow up with patient and family. Patient's insurance is currently pending review. Discharge plan: [facility] for [facility]O [place]
[2023-09-27 13:40] VITALS: BP 90/52; PULSE 74
[2023-09-27 18:08] VITALS: BP 137/73; PULSE 63
[2023-09-27] MEDS: Atorvastatin Calcium 40 MG Tablet PO (20:47)
[2023-09-27] MEDS: Menthol/Lanolin/Calamine/Znox 113 GM Tube 1 APPLIC TOPICAL (20:48)
[2023-09-28 06:00] LABS: Absolute Lymphocyte Count 6.26 X10^3/uL (0.83-4.51); Absolute Neutrophil Count 7.3 X10^3/uL (2.0-7.7); Basophil# 0.36 X10^3/uL; Basophil% 2.2 % (0-1); Eosinophil# 0.53 X10^3/uL; Eosinophils% 3.3 % (0-5); Hematocrit 36.3 % (37-47); Hemoglobin 11.4 g/dL (12.0-15.0); Lymphocyte # 6.26 X10^3/ul (0.83-4.51); Lymphocyte % 38.6 % (19-41); Mean Corp Hgb Conc 31.4 g/dL (32-36); Mean Corpuscular Hgb 29.5 pg (27.0-32.0); Mean Corpuscular Volume 93.8 fL (81-99); Mean Platelet Vol. 9.9 fl (6.2-12.0); Monocyte# 1.71 X10^3/uL; Monocyte% 10.5 % (0-10); NRBC Flagged by Analyzer 0 % (0-5); POSITIVE DIFFERENTIAL YES; POSITIVE MORPHOLOGY YES; Platelet Count 391 K/mm3 (150-450); RBC Distribution Width CV 13.5 % (11.6-14.6); RBC Distribution Width SD 46.3 fl (35.1-43.9); Red Blood Count 3.87 M/mm3 (4.2-5.4); White Blood Count 16.2 K/mm3 (4.4-11.0)
[2023-09-28] MEDS: Carbidopa/Levodopa 25/100 Tablet PO ×3 (06:08→17:13)
[2023-09-28] MEDS: Ensure Plus High Protein 120 ML LIQUID PO ×3 (06:09→17:13)
[2023-09-28] MEDS: [UNRECOGNIZED DRUG - OTHER] EACH EYE ×3 (06:09→19:58)
[2023-09-28 06:26] LABS: Anion Gap 2 (5-15); BUN 33 mg/dL (7-18); Calcium,Total 8.7 mg/dL (8.5-10.1); Chloride 105 mmol/L (98-107); Creatinine, Serum 1.22 mg/dL (0.55-1.02); EST Glomerular Filtration Rate 44 mL/min (>60); Est Glom Filt Rate - Afr Amer 54 mL/min (>60); Estimated Creatinine Clearance 21.31 ml/min; Glucose 83 mg/dL (74-106); Potassium 4.3 mmol/L (3.5-5.1); Sodium Level 138 mmol/L (136-145)
[2023-09-28 06:32] LABS: Differential Comment SCANNED; Differential Indicated SCAN CRITERIA MET
[2023-09-28] MEDS: Ascorbic Acid 500 MG Tablet 1000 MG PO (08:12)
[2023-09-28] MEDS: Multivitamins,Therapeutic Tablet 1 TABLET PO (08:12)
[2023-09-28] MEDS: Famotidine 20 MG Tablet 40 MG PO (08:12)
[2023-09-28] MEDS: Aspirin 81 MG TAB.CHEW PO (08:12)
[2023-09-28] MEDS: Cyanocobalamin 500 MCG Tablet 1000 MCG PO (08:12)
[2023-09-28] MEDS: Midodrine HCl 5 MG Tablet 10 MG PO ×3 (08:12→17:13)
[2023-09-28 08:15] VITALS: BP 89/54; PULSE 72
[2023-09-28 10:19] VITALS: BP 110/67; PULSE 70
[2023-09-28] MEDS: Metoprolol(XL)Succ 25 MG Tablet PO (10:19)
[2023-09-28] MEDS: Menthol/Lanolin/Calamine/Znox 113 GM Tube 1 APPLIC TOPICAL ×2 (12:48→19:57)
[2023-09-28 12:52] VITALS: BP 112/60
[2023-09-28 15:24] VITALS: BP 101/58; PULSE 73; RESP 16; TEMP 36.6; O2SAT 97
[2023-09-28 17:21] VITALS: BP 138/73; PULSE 61
[2023-09-28] MEDS: Atorvastatin Calcium 40 MG Tablet PO (20:00)
[2023-09-29] MEDS: Carbidopa/Levodopa 25/100 Tablet PO ×3 (06:23→18:47)
[2023-09-29] MEDS: Ensure Plus High Protein 120 ML LIQUID PO ×4 (06:23→22:08)
[2023-09-29] MEDS: [UNRECOGNIZED DRUG - OTHER] EACH EYE ×3 (06:24→22:09)
[2023-09-29 06:56] LABS: Absolute Lymphocyte Count 7.05 X10^3/uL (0.83-4.51); Basophil# 0.41 X10^3/uL; Basophil% 2.5 % (0-1); Eosinophil# 0.47 X10^3/uL; Eosinophils% 2.8 % (0-5); Hematocrit 40.4 % (37-47); Hemoglobin 12.6 g/dL (12.0-15.0); Lymphocyte # 7.05 X10^3/ul (0.83-4.51); Lymphocyte % 42.7 % (19-41); Mean Corp Hgb Conc 31.2 g/dL (32-36); Mean Corpuscular Hgb 29.3 pg (27.0-32.0); Monocyte# 1.51 X10^3/uL; Monocyte% 9.2 % (0-10); NRBC Flagged by Analyzer 0 % (0-5); Neutrophil # 6.98 X10^3/uL (2.7-7.7); Neutrophil % 42.3 % (47-70); POSITIVE DIFFERENTIAL YES; POSITIVE MORPHOLOGY YES; Platelet Count 410 K/mm3 (150-450); RBC Distribution Width CV 13.5 % (11.6-14.6); RBC Distribution Width SD 46.6 fl (35.1-43.9); White Blood Count 16.5 K/mm3 (4.4-11.0)
[2023-09-29 07:10] LABS: Differential Indicated SCAN CRITERIA MET
[2023-09-29 09:09] LABS: Differential Comment SCANNED; Reactive Lymphocyte 1+
[2023-09-29 09:54] VITALS: BP 97/62; PULSE 69; RESP 16; TEMP 36.7; O2SAT 95
[2023-09-29 09:56] VITALS: PULSE 69
[2023-09-29] MEDS: Multivitamins,Therapeutic Tablet 1 TABLET PO (09:56)
[2023-09-29] MEDS: Aspirin 81 MG TAB.CHEW PO (09:56)
[2023-09-29] MEDS: Metoprolol(XL)Succ 25 MG Tablet PO (09:56)
[2023-09-29] MEDS: Cyanocobalamin 500 MCG Tablet 1000 MCG PO (09:56)
[2023-09-29] MEDS: Famotidine 20 MG Tablet 40 MG PO (09:56)
[2023-09-29] MEDS: Midodrine HCl 5 MG Tablet 10 MG PO ×3 (09:56→18:47)
[2023-09-29] MEDS: Ascorbic Acid 500 MG Tablet 1000 MG PO (09:56)
[2023-09-29] MEDS: Menthol/Lanolin/Calamine/Znox 113 GM Tube 1 APPLIC TOPICAL ×2 (09:57→22:08)
[2023-09-29 10:04] VITALS: BP 97/62; PULSE 82; RESP 16; TEMP 36.3; O2SAT 95
--- NOTE | 2023-09-29 19:35 | NURSING ---
Patient son/motor vehicle field representative requests [facility] for tomorrow 09/30/23 for about an hour, notified of son's request via phone. Per Dr. Zimmerman ok for [facility] 09/30/23. Son Lalo notified, Lalo expresses thanks.
[2023-09-29] MEDS: Atorvastatin Calcium 40 MG Tablet PO (22:08)
[2023-09-30] MEDS: Ensure Plus High Protein 120 ML LIQUID PO ×4 (06:44→21:55)
[2023-09-30] MEDS: [UNRECOGNIZED DRUG - OTHER] EACH EYE ×3 (06:45→21:55)
[2023-09-30] MEDS: Carbidopa/Levodopa 25/100 Tablet PO ×3 (06:46→17:33)
[2023-09-30 07:55] VITALS: BP 128/65; PULSE 80; RESP 15; O2SAT 96
[2023-09-30] MEDS: Multivitamins,Therapeutic Tablet 1 TABLET PO (07:55)
[2023-09-30] MEDS: Ascorbic Acid 500 MG Tablet 1000 MG PO (07:55)
[2023-09-30] MEDS: Aspirin 81 MG TAB.CHEW PO (07:55)
[2023-09-30] MEDS: Midodrine HCl 5 MG Tablet 10 MG PO ×3 (07:55→17:33)
[2023-09-30] MEDS: Cyanocobalamin 500 MCG Tablet 1000 MCG PO (07:55)
[2023-09-30] MEDS: Menthol/Lanolin/Calamine/Znox 113 GM Tube 1 APPLIC TOPICAL ×2 (07:55→21:55)
[2023-09-30] MEDS: Famotidine 20 MG Tablet 40 MG PO (07:55)
[2023-09-30 07:56] VITALS: BP 128/65; PULSE 80
[2023-09-30] MEDS: Metoprolol(XL)Succ 25 MG Tablet PO (07:56)
[2023-09-30 11:01] VITALS: RESP 16; TEMP 36.4
--- NOTE | 2023-09-30 12:27 | NURSING ---
PT OFF UNIT WITH SON VIA FOR [facility] TO VISIT ECF.
--- NOTE | 2023-09-30 14:30 | NURSING ---
Pt returned from [place] in good spirits.
[2023-09-30 17:38] VITALS: PULSE 61; RESP 16; O2SAT 97
[2023-09-30] MEDS: Atorvastatin Calcium 40 MG Tablet PO (21:56)
[2023-10-01] MEDS: Ensure Plus High Protein 120 ML LIQUID PO ×3 (06:39→16:40)
[2023-10-01] MEDS: [UNRECOGNIZED DRUG - OTHER] EACH EYE ×3 (06:39→22:01)
[2023-10-01] MEDS: Carbidopa/Levodopa 25/100 Tablet PO ×3 (06:40→16:40)
[2023-10-01] MEDS: Ascorbic Acid 500 MG Tablet 1000 MG PO (08:59)
[2023-10-01] MEDS: Aspirin 81 MG TAB.CHEW PO (08:59)
[2023-10-01] MEDS: Multivitamins,Therapeutic Tablet 1 TABLET PO (08:59)
[2023-10-01] MEDS: Cyanocobalamin 500 MCG Tablet 1000 MCG PO (09:00)
[2023-10-01] MEDS: Midodrine HCl 5 MG Tablet 10 MG PO ×3 (09:00→16:41)
[2023-10-01] MEDS: Famotidine 20 MG Tablet 40 MG PO (09:00)
[2023-10-01] MEDS: Menthol/Lanolin/Calamine/Znox 113 GM Tube 1 APPLIC TOPICAL ×2 (09:03→22:01)
[2023-10-01 09:35] VITALS: BP 96/50; PULSE 65
[2023-10-01 09:55] LABS: Pathologist Review Reviewed
[2023-10-01 10:36] VITALS: BP 96/57; PULSE 68
[2023-10-01 13:10] VITALS: BP 132/75; PULSE 65; RESP 18; TEMP 36.3; O2SAT 97
[2023-10-01 13:45] LABS: Pathologist Review Reviewed
[2023-10-01 16:43] VITALS: BP 132/78; PULSE 58
[2023-10-01] MEDS: Atorvastatin Calcium 40 MG Tablet PO (22:01)
[2023-10-02] MEDS: Carbidopa/Levodopa 25/100 Tablet PO ×3 (06:42→16:52)
[2023-10-02] MEDS: Ensure Plus High Protein 120 ML LIQUID PO ×3 (06:43→16:52)
[2023-10-02] MEDS: Multivitamins,Therapeutic Tablet 1 TABLET PO (07:31)
[2023-10-02] MEDS: Aspirin 81 MG TAB.CHEW PO (07:31)
[2023-10-02] MEDS: Midodrine HCl 5 MG Tablet 10 MG PO ×3 (07:31→16:52)
[2023-10-02 08:16] VITALS: BP 124/74; PULSE 88
[2023-10-02 08:18] VITALS: PULSE 88
[2023-10-02] MEDS: Famotidine 20 MG Tablet 40 MG PO (08:18)
[2023-10-02] MEDS: Ascorbic Acid 500 MG Tablet 1000 MG PO (08:18)
[2023-10-02] MEDS: Cyanocobalamin 500 MCG Tablet 1000 MCG PO (08:18)
[2023-10-02] MEDS: Metoprolol(XL)Succ 25 MG Tablet PO (08:18)
[2023-10-02] MEDS: Menthol/Lanolin/Calamine/Znox 113 GM Tube 1 APPLIC TOPICAL ×2 (08:19→22:02)
[2023-10-02 11:34] VITALS: BMI 18.8
[2023-10-02 13:33] VITALS: BP 154/81; PULSE 54; RESP 16; TEMP 36.2; O2SAT 98
--- NOTE | 2023-10-02 16:39 | CASEMGMT ---
Social Work This worker spoke with pt son on phone to discuss DC plans. This worker let son know we still have not received update from pt insurance. Son stated he would like to proceed with DC pt to [facility] on 10/04/23 with therapy services. He will plan to pick pt up after noon. Darcie SANCHEZ
[2023-10-02] MEDS: [UNRECOGNIZED DRUG - OTHER] EACH EYE (21:58)
[2023-10-02] MEDS: Atorvastatin Calcium 40 MG Tablet PO (21:59)
[2023-10-02 22:00] VITALS: RESP 16
[2023-10-03 04:54] VITALS: RESP 16
[2023-10-03] MEDS: Carbidopa/Levodopa 25/100 Tablet PO ×3 (06:46→16:51)
[2023-10-03] MEDS: Ensure Plus High Protein 120 ML LIQUID PO ×4 (06:46→20:36)
[2023-10-03] MEDS: [UNRECOGNIZED DRUG - OTHER] EACH EYE ×3 (06:46→20:36)
--- NOTE | 2023-10-03 07:37 | DS.PCM_ITS ---
Providers Date of Admission: 09/14/23 Primary Care Physician: Dr. Howard Zimmerman MD Reason For Visit: DEBILITY Diagnosis Discharge Diagnosis (1) Debility: Status: Acute Code(s): R53.81 - Other malaise (2) Falls: Status: Inactive Code(s): W19.XXXA - Unspecified fall, initial encounter (3) Syncope: Status: Acute Code(s): R55 - Syncope and collapse (4) Acute encephalopathy: Status: Acute Code(s): G93.40 - Encephalopathy, unspecified (5) Parkinson's disease: Status: Inactive Code(s): G20 - Parkinson's disease (6) Brain TIA: Status: Acute Code(s): G45.9 - Transient cerebral ischemic attack, unspecified (7) Orthostatic hypotension: Status: Acute Code(s): I95.1 - Orthostatic hypotension (8) Hyperlipidemia: Status: Chronic Code(s): E78.5 - Hyperlipidemia, unspecified Qualifiers: Hyperlipidemia type: unspecified Qualified Code(s): E78.5 - Hyperlipidemia, unspecified (9) GERD (gastroesophageal reflux disease): Status: Acute Code(s): K21.9 - Gastro-esophageal reflux disease without esophagitis Plan 88 year old female with below past medical history hospitalized for syncope, fall, encephalopathy, admitted to TCU with debility, here for rehabilitation, strengthening, prior to disposition determination. Recently, at end of very office visit, I have asked resident if she would be willing to move to congregate living community, she always tells me no. * Debility - PT/OT. * Pain - Tylenol 1000mg q6 prn pain (1-10). * Bowel - senna/colace 1 tablet bid, Magnesium citrate 300ml daily prn. * Adult immunization - Administer pneumonia vaccine, covid vaccine, flu vaccine as appropriate. * DVT prophylaxis - Hold, anemia. * TIA - Aspirin 81mg daily. * Hyperlipidemia - Atorvastatin 40mg qhs. * Parkinson Disease - Sinemet 25/100mg 2 tablets tidac. * GERD - Famotidine 40mg daily. * Orthostatic hypotension - Midodrine 10mg tidcm. * Nutrition - MVI 1 tablet daily. * Vitamin C deficiency - Vitamin C 1000mg daily. * Vitamin B12 deficieny - Vitamin B12 1000mcg daily. * Dry Eyes - Artificial Tears 1gtt ou daily prn. * Encephalopathy - Risperdal 0.125mg qhs x7 days, then stop (GDR). Medications at Discharge Home Medications multivitamin 1 tab PO DAILY vitamin 11/20/18 carbidopa 25 mg-levodopa 100 mg tablet 2 tab PO TID parkinsons 01/05/23 aspirin 81 mg chewable tablet 81 mg PO BREAKFAST blood thinner 1 month #30 tabs 06/29/23 atorvastatin 40 mg tablet 40 mg PO QHS cholesterol 1 month #30 tabs 06/29/23 VITAL TEARS 1 drp ophthalmic (eye) TID DRY EYES 09/08/23 cyanocobalamin (vitamin B-12) 1,000 mcg sublingual tablet 1,000 mcg sublingual DAILY supplement 09/08/23 famotidine 40 mg tablet 40 mg PO DAILY reflux 09/08/23 midodrine 5 mg tablet 10 mg (2 x 5 mg) PO TIDCM keep BP from dropping #0 tabs 09/14/23 Vital Tears 1 drp EACH EYE TID ##0 10/03/23 ascorbic acid (vitamin C) 500 mg tablet 1,000 mg (2 x 500 mg) PO DAILY #0 tabs 10/03/23 metoprolol succinate 25 mg tablet,extended release 24 hr 25 mg PO DAILY 30 days #30 tabs 10/03/23 Hospital Course Operations None Procedures None Summary of Care Provided Minutes Spent on Discharge: 35 Hospital Course: 88 year old female with below past medical history hospitalized for syncope, fall, encephalopathy, admitted to TCU with debility, here for rehabilitation, strengthening, prior to disposition determination. Recently, at end of very office visit, I have asked resident if she would be willing to move to congregate living community, she always tells me no. Discharge to [facility] 10/04/2023, [facility] PT/OT/ST. Physical Exam Const alert General Appearance: cooperative HEENT normocephalic Eyes PERRL and EOMs intact bilaterally Neck supple, no JVD and no carotid bruits Resp normal respiratory effort, normal air movement and clear to auscultation bilaterally Cardio regular rate and regular rhythm GI normal to inspection, nondistended, normoactive bowel sounds, non-tender and non-distended Extremity normal capillary refill General Extremity: Negative for edema Skin no rashes or lesions noted General Skin Exam: no breakdown Neuro Neuro Narrative: Cogwheel rigidity, akathesia. Psych affect normal Appearance: appropriate Medical Records Data Medical Nutrition Assessment Dietitian: Malnutrition Criteria Met Start: 09/26/23 14:49 Freq: Status: Active Protocol: Document 09/26/23 14:49 SLA (Rec: 09/26/23 14:49 SLA Desktop) Nutrition Malnutrition Evidence of Malnutrition Exists Yes Malnutrition (severe): Acute Illness/Injury Evidenced By Suboptimal Energy Intake ( Severe),Weight Loss (Severe), Physical Changes (Severe) Intake Problem Inadequate Oral Intake Status Inactive Problem None at this time Status Inactive Problem Clinical Problem Acute Disease or Injury Related Malnutrition Etiology related to recent issues w/ nausea/vomiting and inadequate energy intake Signs/Symptoms as evidenced by 4.8% unintended wt loss since adm and po intake meeting <75% of est nutritional needs - res with fat/muscle wasting throughout body. Status Active Problem Recommendation Dietitian Recommendations/Changes Continue Regular diet Change to 120mL Ensure Plus High Protein 4x daily with medpass to optimize oral intakes and provide supplemental energy. Rec consider appetite stimulant to help encourage increased po intake at meals Weight / BMI Weight Weight: 43.772 kg Body Mass Index (BMI) 18.8 ABG / Lab / Microbiology Data 09/29/23 06:37 09/28/23 05:30 D/C Instructions Discharge Diet: No restrictions Discharge Activity: Return to Normal Activity, May Shower and Use Walker Weight Bearing Status: Weight bearing as tolerated Call your doctor if you observe: Fever of 101 or Higher, Inability to urinate, Inability to have a bowel movement, Shortness of breath, Dizziness, Fainting spells, Swelling in the ankles, Chest pain and Uncontrolled pain Additional Instructions: Discharge to [facility] 10/04/2023, [facility] PT/OT/ST. Please Follow Up With: [facility] Cardiology When: As scheduled. Meaningful Use Info Meaningful Use Diagnoses (Choose all that apply): None applicable Discharge Plan Admission Admit Date/Time: 09/14/23 15:33 Primary Reason for Your Visit: Debility. Attending Provider: Howard Zimmerman Chi Primary Care Provider: Howard Zimmerman Chi Instructions Additional Instructions / Restrictions: Discharge to [facility] 10/04/2023, [facility] PT/OT/ST. Discharge Orders/Prescriptions Prescriptions: New ascorbic acid (vitamin C) 500 mg Tablet 1,000 mg PO DAILY Qty: 0 0RF metoprolol succinate 25 mg Tablet Extended Release 24 Hr 25 mg PO DAILY 30 Days Qty: 30 0RF Vital Tears 1 drp EACH EYE TID Qty: 0 0RF Continued carbidopa-levodopa 25-100 mg tablet 2 tab PO TID Patient Comments: patient took home dose at 1620 multivitamin tablet 1 tab PO DAILY atorvastatin 40 mg Tablet 40 mg PO QHS 30 Days Qty: 30 2RF aspirin 81 mg Tablet,Chewable 81 mg PO BREAKFAST 30 Days Qty: 30 3RF famotidine 40 mg tablet 40 mg PO DAILY cyanocobalamin (vitamin B-12) 1,000 mcg tablet, sublingual 1,000 mcg sublingual DAILY VITAL TEARS 1 drp ophthalmic (eye) TID Patient Comments: FAMILY STATES THAT PT USES EYE DROPS MADE AT [facility] THAT IS MADE WITH HER BLOOD. AFTER RESEARCH, EYE DROPS ARE CALLED VITAL EYES, OR AUTOLOGOUS SERUM. midodrine 5 mg Tablet 10 mg PO TIDCM Qty: 0 0RF Discontinued C Complex 1,000 mg tablet extended release 1,000 mg PO DAILY risperidone 0.25 mg Tablet 0.25 mg PO QHS Qty: 0 0RF Referrals / Follow Up: Howard Zimmerman Chi, MD [Primary Care Provider] - Disposition Disposition (needs filled in before D/C Order can be placed): Assisted Living
[2023-10-03] MEDS: Multivitamins,Therapeutic Tablet 1 TABLET PO (07:57)
[2023-10-03] MEDS: Aspirin 81 MG TAB.CHEW PO (07:57)
[2023-10-03] MEDS: Midodrine HCl 5 MG Tablet 10 MG PO ×3 (07:57→16:52)
[2023-10-03] MEDS: Famotidine 20 MG Tablet 40 MG PO (07:57)
[2023-10-03] MEDS: Ascorbic Acid 500 MG Tablet 1000 MG PO (07:58)
[2023-10-03] MEDS: Menthol/Lanolin/Calamine/Znox 113 GM Tube 1 APPLIC TOPICAL ×2 (07:58→20:36)
[2023-10-03] MEDS: Cyanocobalamin 500 MCG Tablet 1000 MCG PO (07:58)
[2023-10-03 08:02] VITALS: BP 92/57
[2023-10-03 10:21] VITALS: BP 98/66; PULSE 60
--- NOTE | 2023-10-03 12:44 | CASEMGMT ---
Social Work Pt would like to do outpatient therapy through [facility]. This worker contacted [facility] therapy department and made referral. SW to fax order. They will be able to provide outpt PT/OT/ST based on insurance authorization. Darcie SANCHEZ
[2023-10-03 13:46] VITALS: BP 126/73; PULSE 68; RESP 18; TEMP 36.2; O2SAT 98
[2023-10-03] MEDS: Atorvastatin Calcium 40 MG Tablet PO (20:35)
[2023-10-04 04:45] VITALS: RESP 16
[2023-10-04] MEDS: Carbidopa/Levodopa 25/100 Tablet PO (06:31)
[2023-10-04] MEDS: Ensure Plus High Protein 120 ML LIQUID PO (06:31)
[2023-10-04] MEDS: [UNRECOGNIZED DRUG - OTHER] EACH EYE (06:32)
[2023-10-04] MEDS: Midodrine HCl 5 MG Tablet 10 MG PO (06:50)
[2023-10-04 06:52] VITALS: BP 142/88; PULSE 62
[2023-10-04 08:53] VITALS: BP 89/53; PULSE 68; RESP 16; TEMP 36.4; O2SAT 92
[2023-10-04 08:54] VITALS: BP 93/48; PULSE 66
[2023-10-04] MEDS: Multivitamins,Therapeutic Tablet 1 TABLET PO (08:56)
[2023-10-04] MEDS: Famotidine 20 MG Tablet 40 MG PO (08:56)
[2023-10-04] MEDS: Aspirin 81 MG TAB.CHEW PO (08:56)
[2023-10-04 08:57] VITALS: PULSE 66
[2023-10-04] MEDS: Ascorbic Acid 500 MG Tablet 1000 MG PO (08:57)
[2023-10-04] MEDS: Metoprolol(XL)Succ 25 MG Tablet PO (08:57)
[2023-10-04] MEDS: Cyanocobalamin 500 MCG Tablet 1000 MCG PO (08:57)
[2023-10-04] MEDS: Menthol/Lanolin/Calamine/Znox 113 GM Tube 1 APPLIC TOPICAL (08:57)
--- NOTE | 2023-10-04 10:27 | NURSING ---
refrigerated eye gtts returned to [facility] for DC to [facility].
--- NOTE | 2023-10-04 10:59 | NURSING ---
report called to Marcella at [facility]. TCU phone number given if any concerns or questions arise on admit to facility.
== END 2023-10-04 11:01 | disposition home health service (06) | DRG 56 ==
PROVIDERS: Admitting Provider Family Medicine Geriatric Medicine; PCP Family Medicine Geriatric Medicine; Visit Provider Family Medicine Geriatric Medicine
DX: G20.A1 Parkinson's disease without dyskinesia, without mention of fluctuations (principal); E43 Unspecified severe protein-calorie malnutrition; G93.40 Encephalopathy, unspecified; Z68.1 Body mass index [BMI] 19.9 or less, adult; I12.9 Hypertensive chronic kidney disease with stage 1 through stage 4 chronic kidney disease, or unspecified chronic kidney disease; E53.8 Deficiency of other specified B group vitamins; K21.9 Gastro-esophageal reflux disease without esophagitis; I95.1 Orthostatic hypotension; E78.5 Hyperlipidemia, unspecified; N18.2 Chronic kidney disease, stage 2 (mild); E54 Ascorbic acid deficiency; Z79.82 Long term (current) use of aspirin; Z86.73 Personal history of transient ischemic attack (TIA), and cerebral infarction without residual deficits; Z79.899 Other long term (current) drug therapy
CPT/HCPCS: 36415; 80048; 85025; 92507; 92523; 97110; 97116; 97129; 97130; 97162; 97166; 97530; 97535

== ENCOUNTER → 2023-10-05 | Outpatient (REF) | payer MEDICARE, SELFPAY ==
[2023-10-05 08:16] LABS: Absolute Lymphocyte Count 5.57 X10^3/uL (0.83-4.51); Absolute Neutrophil Count 4.4 X10^3/uL (2.0-7.7); Basophil% 2.5 % (0-1); Eosinophil# 0.48 X10^3/uL; Hematocrit 33.8 % (37-47); Hemoglobin 10.9 g/dL (12.0-15.0); Lymphocyte # 5.57 X10^3/ul (0.83-4.51); Lymphocyte % 45.8 % (19-41); Mean Corp Hgb Conc 32.2 g/dL (32-36); Mean Corpuscular Hgb 30.4 pg (27.0-32.0); Mean Corpuscular Volume 94.2 fL (81-99); Mean Platelet Vol. 10.6 fl (6.2-12.0); Monocyte# 1.35 X10^3/uL; Monocyte% 11.1 % (0-10); NRBC Flagged by Analyzer 0 % (0-5); Neutrophil # 4.42 X10^3/uL (2.7-7.7); Neutrophil % 36.4 % (47-70); POSITIVE DIFFERENTIAL YES; POSITIVE MORPHOLOGY YES; Platelet Count 346 K/mm3 (150-450); RBC Distribution Width CV 13.6 % (11.6-14.6); RBC Distribution Width SD 46.8 fl (35.1-43.9); Red Blood Count 3.59 M/mm3 (4.2-5.4); White Blood Count 12.2 K/mm3 (4.4-11.0)
[2023-10-05 08:22] LABS: Differential Indicated SCAN CRITERIA MET
[2023-10-05 08:26] LABS: AST(SGOT) 38 U/L (15-37); Alanine Aminotransfer ALT/SGPT 14 U/L (13-56); Alkaline Phosphatase 97 U/L (45-117); Anion Gap 6 (5-15); BUN 29 mg/dL (7-18); BUN/Creat Ratio 28.2 RATIO (10-20); Calcium,Total 8.7 mg/dL (8.5-10.1); Chloride 104 mmol/L (98-107); Cholesterol 130 mg/dL (200); Creatinine, Serum 1.03 mg/dL (0.55-1.02); EST Glomerular Filtration Rate 54 mL/min (>60); Est Glom Filt Rate - Afr Amer 65 mL/min (>60); Globulin 3.1 g/dL (2.2-4.2); Glucose 90 mg/dL (74-106); High Density Lipoprotein 47 mg/dL; Potassium 4.1 mmol/L (3.5-5.1); Protein, Total 6.1 g/dL (6.4-8.2); Sodium Level 140 mmol/L (136-145); Triglycerides 139 mg/dL; Very Low Density Lipoprotein 28 mg/dL (5-40)
[2023-10-05 08:39] LABS: Vitamin B12 > 2000 pg/mL (211-911)
[2023-10-05 09:45] LABS: Differential Comment SCANNED; Reactive Lymphocyte 1+
== END ==
LOC: OLS.WHLTSB 04:00
PROVIDERS: PCP Family Medicine Geriatric Medicine; Referring Provider Internal Medicine; Visit Provider Internal Medicine
DX: I10 Essential (primary) hypertension (principal); E55.9 Vitamin D deficiency, unspecified; E78.5 Hyperlipidemia, unspecified
CPT/HCPCS: 36415; 80053; 80061; 82306; 82607; 85025

== ENCOUNTER → 2023-10-17 | Outpatient (REF) | payer MEDICARE, SELFPAY ==
[2023-10-17 07:40] LABS: Absolute Neutrophil Count 5.4 X10^3/uL (2.0-7.7); Basophil# 0.36 X10^3/uL; Basophil% 2.5 % (0-1); Eosinophil# 0.51 X10^3/uL; Eosinophils% 3.5 % (0-5); Hematocrit 33.4 % (37-47); Hemoglobin 10.7 g/dL (12.0-15.0); Lymphocyte % 46.1 % (19-41); Mean Corpuscular Hgb 30.1 pg (27.0-32.0); Mean Corpuscular Volume 93.8 fL (81-99); Monocyte% 10.3 % (0-10); NRBC Flagged by Analyzer 0 % (0-5); Neutrophil # 5.42 X10^3/uL (2.7-7.7); Neutrophil % 37.3 % (47-70); POSITIVE COUNT YES; POSITIVE DIFFERENTIAL YES; RBC Distribution Width CV 14.1 % (11.6-14.6); RBC Distribution Width SD 49.1 fl (35.1-43.9); Red Blood Count 3.56 M/mm3 (4.2-5.4); White Blood Count 14.5 K/mm3 (4.4-11.0)
[2023-10-17 08:00] LABS: Anion Gap 1 (5-15); BUN 25 mg/dL (7-18); BUN/Creat Ratio 21.9 RATIO (10-20); Calcium,Total 8.7 mg/dL (8.5-10.1); Chloride 108 mmol/L (98-107); Creatinine, Serum 1.14 mg/dL (0.55-1.02); EST Glomerular Filtration Rate 48 mL/min (>60); Est Glom Filt Rate - Afr Amer 58 mL/min (>60); Glucose 91 mg/dL (74-106); Potassium 4.2 mmol/L (3.5-5.1); Sodium Level 140 mmol/L (136-145)
[2023-10-17 08:02] LABS: Differential Indicated SCAN CRITERIA MET
[2023-10-17 08:03] LABS: Platelet Estimate ADEQUATE (ADEQ)
== END ==
LOC: OLS.WHLTSB 05:00
PROVIDERS: PCP Family Medicine Geriatric Medicine; Visit Provider Internal Medicine
DX: I10 Essential (primary) hypertension (principal); K59.00 Constipation, unspecified; E78.5 Hyperlipidemia, unspecified
CPT/HCPCS: 36415; 80048; 85025

== ENCOUNTER → 2023-10-31 | Outpatient (REF) | payer MEDICARE, SELFPAY ==
[2023-10-31 07:24] LABS: Absolute Lymphocyte Count 6.07 X10^3/uL (0.83-4.51); Absolute Neutrophil Count 5.3 X10^3/uL (2.0-7.7); Basophil% 2.2 % (0-1); Eosinophil# 0.49 X10^3/uL; Eosinophils% 3.6 % (0-5); Hemoglobin 10.9 g/dL (12.0-15.0); Lymphocyte # 6.07 X10^3/ul (0.83-4.51); Mean Corp Hgb Conc 32.1 g/dL (32-36); Mean Corpuscular Hgb 29.9 pg (27.0-32.0); Mean Corpuscular Volume 93.4 fL (81-99); Mean Platelet Vol. 10.6 fl (6.2-12.0); Monocyte% 11.6 % (0-10); NRBC Flagged by Analyzer 0 % (0-5); Neutrophil # 5.26 X10^3/uL (2.7-7.7); Neutrophil % 38.2 % (47-70); POSITIVE DIFFERENTIAL YES; POSITIVE MORPHOLOGY YES; Platelet Count 337 K/mm3 (150-450); RBC Distribution Width CV 14.4 % (11.6-14.6); RBC Distribution Width SD 49.3 fl (35.1-43.9); Red Blood Count 3.64 M/mm3 (4.2-5.4); White Blood Count 13.8 K/mm3 (4.4-11.0)
[2023-10-31 07:27] LABS: Differential Indicated SCAN CRITERIA MET
[2023-10-31 07:39] LABS: Anion Gap 4 (5-15); BUN 22 mg/dL (7-18); BUN/Creat Ratio 22.5 RATIO (10-20); Calcium,Total 9.1 mg/dL (8.5-10.1); Chloride 106 mmol/L (98-107); Creatinine, Serum 0.98 mg/dL (0.55-1.02); EST Glomerular Filtration Rate 57 mL/min (>60); Est Glom Filt Rate - Afr Amer 69 mL/min (>60); Glucose 82 mg/dL (74-106); Potassium 4.3 mmol/L (3.5-5.1); Sodium Level 139 mmol/L (136-145)
[2023-10-31 09:06] LABS: Atypical Lymphocyte 1+ %
[2023-11-02 12:04] LABS: Pathologist Review Reviewed
== END ==
LOC: OLS.WHLTSB 05:00
PROVIDERS: PCP Family Medicine Geriatric Medicine; Visit Provider Internal Medicine
DX: I10 Essential (primary) hypertension (principal)
CPT/HCPCS: 36415; 80048; 85025

== ENCOUNTER 2023-11-02 15:41 | Observation (INO) | payer MEDICARE, SELFPAY ==
[2023-11-02 15:42] VITALS: BP 122/77; PULSE 49; RESP 20; TEMP 35.8; BMI 21.2
--- NOTE | 2023-11-02 15:52 | CT_ITS ---
STUDY: CT BRAIN WITHOUT CONTRAST REASON FOR EXAM: Female, 88 years old. fall/trauma RADIATION DOSAGE (If Supplied By Facility): CTDIvol = ( 44.99 ) mGy, DLP = ( 796.11 ) mGycm TECHNIQUE: Transaxial CT imaging of the brain was performed without administration of intravenous contrast material. Individualized dose optimization techniques were used for this CT. COMPARISON: CT brain September 08, 2023 FINDINGS: Normal soft tissue structures. Normal calvarium. There is moderate cerebral atrophy with widening of the extra-axial spaces and ventricular dilatation. There are areas of decreased attenuation within the white matter tracts of the supratentorial brain, consistent with microvascular disease changes. Normal basal ganglia and thalami. Normal brainstem. Normal cerebellum. There is no intracranial hemorrhage. There are no findings of an acute ischemic infarction. Normal visualized paranasal sinuses. CT/Brain/Head without Contrast IMPRESSION: Chronic involutional changes of the brain. Electronically Signed: Mitchel Suggs MD at 16:42 EDT ,
--- NOTE | 2023-11-02 15:54 | EDS_ITS ---
HPI HPI - Fall History of Present Illness Chief Complaint: Fall Informant: patient and EMS Narrative Narrative: 88-year-old female with Parkinson's usually uses her walker, she states she was walking without it on accident, her toe caught the edge of some tile causing her to fall to her right shoulder, injuring it primarily. She also hit her head there was no loss of consciousness she denies headache, nausea, vomiting, confusion, focal neurologic symptoms. She also scraped her right knee but does not have any pain there. Tetanus Immunization: Unknown [facility] Medical History CKD (chronic kidney disease), stage III Anemia Falls Brain TIA Parkinson's disease Parotid tumor Lymphoma Parkinsons disease Premature ventricular contraction Hypertension Premature atrial contractions Hyperlipidemia History of atrial myxoma Nonrheumatic tricuspid valve regurgitation Nonrheumatic mitral valve regurgitation Nonrheumatic mitral (valve) prolapse Home Medications ?Medication ?Instructions ?Recorded ?Last Taken ?Type multivitamin 1 tab PO DAILY vitamin 11/20/18 11/02/23 History carbidopa 25 mg-levodopa 100 mg 2 tab PO TID parkinsons 01/05/23 11/02/23 History tablet aspirin 81 mg chewable tablet 81 mg PO BREAKFAST blood thinner 1 06/29/23 11/02/23 Rx month #30 tabs atorvastatin 40 mg tablet 40 mg PO QHS cholesterol 1 month 06/29/23 11/01/23 Rx #30 tabs VITAL TEARS 1 drp ophthalmic (eye) TID DRY EYES 09/08/23 11/02/23 History cyanocobalamin (vitamin B-12) 1,000 mcg sublingual DAILY 09/08/23 11/02/23 History 1,000 mcg sublingual tablet supplement famotidine 40 mg tablet 40 mg PO DAILY reflux 09/08/23 11/02/23 History midodrine 5 mg tablet 10 mg (2 x 5 mg) PO TIDCM blood 09/14/23 11/02/23 Rx pressure elavator #0 tabs metoprolol succinate 25 mg 25 mg PO DAILY 30 days #30 tabs 10/03/23 11/02/23 Rx tablet,extended release 24 hr ascorbic acid (vitamin C) 500 mg 500 mg PO DAILY 11/02/23 11/02/23 History tablet sennosides 8.6 mg-docusate sodium 1 tab-cap PO DAILY PRN constipation 11/02/23 11/02/23 History 50 mg capsule (Senna Plus) Allergy/AdvReac Type Severity Reaction Status Date / Time Penicillins Allergy Rash Verified 09/19/23 14:35 tramadol AdvReac Other Verified 09/19/23 14:35 Family History Father Heart disease CHF (congestive heart failure) Mother No problems noted. Surgical History (Updated 11/02/23 @ 17:[address] Daisy Mack MD) History of facial surgery History of splenectomy History of laparoscopic cholecystectomy Social History household members: none housing: assisted living facility Smoking Status: Never smoker alcohol intake: current details: occasional substance use type: does not use ROS ROS ED Constitutional Constitutional ED: Denies chills or fever(s) Eyes Eyes: Denies change in vision or diplopia ENT ENT ED: Denies ear pain, epistaxis, facial pain or rhinorrhea Cardiovascular Cardiovascular: Denies chest pain or palpitations Respiratory/Chest Respiratory/Chest: Denies cough or dyspnea Gastrointestinal Gastrointestinal: Denies abdominal pain, diarrhea, melena, nausea or vomiting Genitourinary Genitourinary ED: Denies dysuria or hematuria Musculoskeletal Musculoskeletal: Reports extremity pain; Denies back pain or neck pain Integumentary Reports Abrasions and laceration; Denies abscess or rash Neurologic Neurologic: Reports as per HPI and tremor(s); Denies abnormal speech, behavior changes, confusion, dizziness, headache(s), paresthesias or weakness EXAM Physical Exam Const Vital Signs: 11/02/23 15:42 11/02/23 15:53 Temperature 96.4 F L Temperature Source Temporal Pulse Rate 49 L Respiratory Rate 20 H Respiratory Effort Normal Non-Labored Respiratory Depth Normal Respiratory Pattern Normal Blood Pressure 122/77 H Blood Pressure Mean 92 Oxygen Delivery Method Room Air Positive well nourished and well developed General Appearance ED: well developed and NAD HEENT Reports TM's clear and nasal mucous membranes and turbinates normal HEENT Narrative: Superficial abrasions along with a 0.5 cm partial-thickness laceration right lateral face without crepitance, hematoma, or bony tenderness throughout the midface. Face and Sinus: Negative for facial tenderness Tympanic Membrane ED: Yes TM's clear Eyes PERRL and EOMs intact bilaterally Eyes Narrative: No globe trauma or subconjunctival hemorrhaging. Visual Acuity: other Other Details: no entrapment or pain with extraocular movements Neck full ROM and supple General: Negative for tenderness Chest Wall inspection of chest normal and palpation of chest normal Chest: symmetrical chest wall rise; Negative for crepitus or tenderness Resp normal respiratory effort and clear to auscultation bilaterally Percussion: other equal BS bilat Cardio no murmurs Rate: regular rate Rhythm: regular rhythm GI normal to inspection, nondistended, normoactive bowel sounds, soft to palpation and non-tender Back/Spine normal ROM Cervical Spine: Negative for cervical spine tenderness Thoracic Spine / Upper Back: Negative for thoracic spinal tenderness Lumbar Spine / Lower Back: Negative for lumbar spinal tenderness Extremity normal to inspection Extremity Narrative: Tenderness with deformity anterior proximal right humerus. Based on exam suspect possible anterior dislocation versus fracture. There is a bump at the acromioclavicular joint that is nontender and the rest of the clavicle is nontender. The rest of the right upper extremity is nontender, she can range the elbow and the wrist without any difficulty or pain. She is neurovascular intact distally with a 2+/4 radial pulse. The other 4 extremities move without any pain. There is an abrasion at the right tibial tuberosity without any bony tenderness or effusion at the knee. General Extremety ED: Yes tenderness Neuro oriented x3, CN's II-XII intact bilaterally, moves all extremities, no focal motor deficits and no sensory deficits noted Neuro Narrative: Resting tremor Herman Coma Scale: document GCS findings Spontaneous Obeys Commands Oriented 15 Sensorium / Orientation: awake and alert Psych mental status grossly normal and thought process normal Skin Skin Narrative: Abrasions to the right lateral face and the right knee, laceration to the lateral aspect of the right superior orbital brim see above. Lesions: no lesions Rashes: no rashes MDM MDM MDM Narrative Medical decision making narrative: Radiography performed of the right shoulder as well as the head. We obtain labs because anticipate she will need admitted since she is coming from assisted living and we think (facility did not provide a report to us), and since she is dependent on a walker with her Parkinson's to get around, she likely will need skilled facility placement and temporary acute admission to get her there. CT of the head was obtained in order to rule out intracranial injury, I reviewed the images and report which I agree with, negative for anything acute. With regard to the right shoulder, 3 views of my interpretation show proximal humerus fracture without dislocation. Radiology interpretation is in agreement. Patient was given fentanyl and prophylactic Zofran she is doing much better and has controlled pain. She will place in a sling, and since she is in assisted living which I confirmed when the daughter arrived to I also spoke with, she will need to be admitted for placement to skilled temporarily. This is nonoperative fracture. Lab Data Attestation: I reviewed the patient's lab results. Labs: Laboratory Results - last 24 hr 11/02/23 15:59 WBC 16.3 H RBC 3.57 L Hgb 10.7 L Hct 33.6 L MCV 94.1 MCH 30.0 MCHC 31.8 L RDW Std Deviation 48.7 H RDW Coeff of [place] 14.2 Plt Count 299 MPV 10.2 Immature Gran % (Auto) 0.400 Neut % (Auto) 30.3 L Lymph % (Auto) 52.1 H [place] % (Auto) 11.0 H Eos % (Auto) 3.7 Baso % (Auto) 2.5 H Absolute Neuts (auto) 4.9 Absolute Lymphs (auto) 8.49 H Nucleated RBC % 0 Differential Comment SCANNED Diff Path Review May foll Sodium 135 L Potassium 4.0 Chloride 103 Carbon Dioxide 28.0 Anion Gap 4 L BUN 26 H Creatinine 1.16 H Estim Creat Clear Calc 24.54 Est GFR (MDRD) Af Amer 57 L Est GFR (MDRD) Non-Af 47 L BUN/Creatinine Ratio 22.4 H Glucose 120 H Calcium 8.3 L Radiography Diagnostic Testing: Clinical Impression(s) from Imaging Studies Brain CT 11/02/23 15:52 IMPRESSION: Chronic involutional changes of the brain. Electronically Signed: Mitchel Suggs MD at 16:42 EDT , Shoulder X-Ray 11/02/23 16:15 IMPRESSION: Impacted humeral neck fracture Electronically Signed: Mitchel Suggs MD at 16:44 EDT , Management Discussion w/another healthcare provider: Hospitalist Procedures Lacerations Right forehead: Length: 0.5 cm Depth: Skin Shape: Linear Prep: Sterile Conditions and Chlorhexadine (Scrubbed) Laceration repair: Dermabond Discharge Plan Dx/Rx/DC Orders Clinical Impression: Closed fracture of proximal end of right humerus, Closed head injury without concussion, Accidental fall, Facial laceration, Multiple abrasions Disposition Disposition: Acute Care Hospital [facility] Discharge Date/Time: 11/02/23 17:57
[2023-11-02] MEDS: Ondansetron 4 MG/2 ML Vial IV (16:01)
[2023-11-02] MEDS: fentaNYL 100 MCG/2 ML Ampul 25 MCG IV (16:02)
[2023-11-02 16:15] LABS: Absolute Lymphocyte Count 8.49 X10^3/uL (0.83-4.51); Absolute Neutrophil Count 4.9 X10^3/uL (2.0-7.7); Basophil# 0.41 X10^3/uL; Basophil% 2.5 % (0-1); Eosinophil# 0.61 X10^3/uL; Eosinophils% 3.7 % (0-5); Hematocrit 33.6 % (37-47); Hemoglobin 10.7 g/dL (12.0-15.0); Lymphocyte # 8.49 X10^3/ul (0.83-4.51); Lymphocyte % 52.1 % (19-41); Mean Corp Hgb Conc 31.8 g/dL (32-36); Mean Corpuscular Volume 94.1 fL (81-99); Mean Platelet Vol. 10.2 fl (6.2-12.0); Monocyte# 1.79 X10^3/uL; NRBC Flagged by Analyzer 0 % (0-5); Neutrophil # 4.91 X10^3/uL (2.7-7.7); Neutrophil % 30.3 % (47-70); POSITIVE DIFFERENTIAL YES; POSITIVE MORPHOLOGY YES; Platelet Count 299 K/mm3 (150-450); RBC Distribution Width CV 14.2 % (11.6-14.6); RBC Distribution Width SD 48.7 fl (35.1-43.9); Red Blood Count 3.57 M/mm3 (4.2-5.4); White Blood Count 16.3 K/mm3 (4.4-11.0)
--- NOTE | 2023-11-02 16:15 | RAD_ITS ---
STUDY: X-RAY - RIGHT SHOULDER REASON FOR EXAM: Female, 88 years old. injury TECHNIQUE: 2 view(s) of the shoulder. COMPARISON: None. FINDINGS: Normal glenohumeral articulation. Normal acromioclavicular joint. Normal acromion. Subcapital impacted humeral neck fracture. The soft tissue structures are unremarkable. Normal visualized pulmonary apex. RAD/Shoulder min 2 Views IMPRESSION: Impacted humeral neck fracture Electronically Signed: Mitchel Suggs MD at 16:44 EDT ,
[2023-11-02 16:23] LABS: Anion Gap 4 (5-15); BUN 26 mg/dL (7-18); BUN/Creat Ratio 22.4 RATIO (10-20); Calcium,Total 8.3 mg/dL (8.5-10.1); Chloride 103 mmol/L (98-107); Creatinine, Serum 1.16 mg/dL (0.55-1.02); EST Glomerular Filtration Rate 47 mL/min (>60); Est Glom Filt Rate - Afr Amer 57 mL/min (>60); Estimated Creatinine Clearance 24.54 ml/min; Glucose 120 mg/dL (74-106); Sodium Level 135 mmol/L (136-145)
[2023-11-02 16:31] LABS: Differential Indicated SCAN CRITERIA MET
[2023-11-02 17:04] LABS: Differential Comment SCANNED
--- NOTE | 2023-11-02 17:21 | PCM.HP.STD ---
HPI - General General Date of Admission: 11/02/23 Date of Service: 11/02/23 Chief Complaint: Mechanical fall, RUE pain. HPI Narrative The patient is an 88 y/o F currently residing in Assisted living w/ PMHx: Chronic anemia, CKD stage III unclear subtype per GFR trending, Hx TIA, Parkinson's disease w/ underlying dementia component with behavioral disturbance history with agitation during admissions primarily in the evenings w/ frequent fall history, Hx Lymphoma, Hx Atrial myxoma, Valvular Heart Disease, Chronic orthostatis, HTN, HLD, Hx Parotid tumor, Hx PAC/PVC, recent discharge 09/14/2023 following syncope assessment with also noted unremarkable EEG and no cardiac arrhythmia with increase of her midodrine secondary to significant orthostatic hypotension to 10 mg p.o. 3 times daily and transition to skilled facility following who now represents to the [facility] ED on 11/02/23 with history of unfortunate mechanical fall attempting to walk without use of her walker when her toe caught the edge of something prompting her to fall onto her right shoulder and hit her head with no loss of consciousness nor any recent headache, nausea or emesis in addition to scraping her right knee with significant debility following prompting ED evaluation. She currently reports after pain medication the ED that her pain is completely controlled. Workup in the ED included T96.4, heart rate 49, BP 122/77, respiratory rate 20, CBC with WBC 16.3, hemoglobin 10.7, MCV 94.1, platelet 299 with lymphocytosis, BMP with sodium 135, BUN/creatinine 26/1.16, GFR 47, glucose 120, plain film of the right shoulder with an impacted humeral neck fracture, CT of the brain with chronic involutional changes. In the ED patient administered 25 mcg fentanyl IV x 1 as well as Zofran 4 mg IV x 1. [facility] Medical History CKD (chronic kidney disease), stage III Anemia Falls Brain TIA Parkinson's disease Parotid tumor Lymphoma Parkinsons disease Premature ventricular contraction Hypertension Premature atrial contractions Hyperlipidemia History of atrial myxoma Nonrheumatic tricuspid valve regurgitation Nonrheumatic mitral valve regurgitation Nonrheumatic mitral (valve) prolapse Home Medications ?Medication ?Instructions ?Recorded ?Last Taken ?Type multivitamin 1 tab PO DAILY vitamin 11/20/18 11/02/23 History carbidopa 25 mg-levodopa 100 mg 2 tab PO TID parkinsons 01/05/23 11/02/23 History tablet aspirin 81 mg chewable tablet 81 mg PO BREAKFAST blood thinner 1 06/29/23 11/02/23 Rx month #30 tabs atorvastatin 40 mg tablet 40 mg PO QHS cholesterol 1 month 06/29/23 11/01/23 Rx #30 tabs VITAL TEARS 1 drp ophthalmic (eye) TID DRY EYES 09/08/23 11/02/23 History cyanocobalamin (vitamin B-12) 1,000 mcg sublingual DAILY 09/08/23 11/02/23 History 1,000 mcg sublingual tablet supplement famotidine 40 mg tablet 40 mg PO DAILY reflux 09/08/23 11/02/23 History midodrine 5 mg tablet 10 mg (2 x 5 mg) PO TIDCM blood 09/14/23 11/02/23 Rx pressure elavator #0 tabs metoprolol succinate 25 mg 25 mg PO DAILY 30 days #30 tabs 10/03/23 11/02/23 Rx tablet,extended release 24 hr ascorbic acid (vitamin C) 500 mg 500 mg PO DAILY 11/02/23 11/02/23 History tablet sennosides 8.6 mg-docusate sodium 1 tab-cap PO DAILY PRN constipation 11/02/23 11/02/23 History 50 mg capsule (Senna Plus) Allergy/AdvReac Type Severity Reaction Status Date / Time Penicillins Allergy Rash Verified 09/19/23 14:35 tramadol AdvReac Other Verified 09/19/23 14:35 Family History Father Heart disease CHF (congestive heart failure) Mother No problems noted. Surgical History (Updated 11/02/23 @ 17:[address] Daisy Mack MD) History of facial surgery History of splenectomy History of laparoscopic cholecystectomy Social History household members: none housing: assisted living facility Smoking Status: Never smoker alcohol intake: current details: occasional substance use type: does not use ROS ROS Narrative Admission Review of Systems: CONSTITUTIONAL: No weight loss, fever, chills, + weakness or fatigue. HEENT: Eyes: No visual loss, blurred vision, double vision or yellow sclerae. Ears, Nose, Throat: No hearing loss, sneezing, congestion, runny nose or sore throat. SKIN: No rash or itching, lesions, wounds except + staged ecchymoses, abrasion including to the right lateral lid status post recent fall. CARDIOVASCULAR: No chest pain, chest pressure or chest discomfort, palpitations, edema, orthopnea, syncopal events. RESPIRATORY: No shortness of breath, cough or sputum, wheezing, hemoptysis. GASTROINTESTINAL: No anorexia, nausea, vomiting or diarrhea, abdominal pain, melena, BRBPR. GENITOURINARY: No dysuria, frequency, urgency or retention. NEUROLOGICAL: + Parkinson's disease with chronic debility, imbalance, tremors, underlying dementia. No headache, dizziness, syncope, paralysis, ataxia, numbness or tingling in the extremities, focal weakness, change in bowel or bladder control, seizure. MUSCULOSKELETAL: + muscle, back pain, joint pain or stiffness. HEMATOLOGIC: Chronic anemia, + Easy bleeding/bruising. LYMPHATICS: No enlarged nodes. No history of splenectomy. PSYCHIATRIC: No history of depression or anxiety. ENDOCRINOLOGIC: No reports of sweating, cold or heat intolerance. No polyuria or polydipsia. ALLERGIES: + History of hives. Vital Signs Vital Signs Vital Signs: 11/02/23 15:42 11/02/23 15:53 Temperature 96.4 F L Temperature Source Temporal Pulse Rate 49 L Respiratory Rate 20 H Respiratory Effort Normal Non-Labored Respiratory Depth Normal Respiratory Pattern Normal Blood Pressure 122/77 H Blood Pressure Mean 92 Oxygen Delivery Method Room Air Weight Weight: 108 lb 7.479 oz Body Mass Index (BMI) 21.2 Physical Exam Narrative Physical Examination: General: Awake, alert, oriented to self, place, year, month, currently calm and cooperative, seated upright in the ED bed in no apparent distress, notes pain is currently 0/10 to her RUE s/p recent ED pain medication. Skin: Normal color, normal turgor, no icterus, no cyanosis except occasional staged ecchymoses. HEENT: AT/NC, EOMI, PERRLA, MMM, no carotid bruits or JVD noted. Lungs: Mildly diminished, greater bases, appropriate effort, no rales, ronchi or wheezing. Heart: Regular rate and rhythm; no gallop, rub audible, + SM. Abdomen: Soft, thin habitus, NTTP, ND, hyperactive BS, no appreciated HSM. Extremities: No cyanosis, no clubbing, mild right upper extremity edema status post recent fall with proximal humeral fracture, peripheral pulses intact, able to move fingers. Neurological: Patient awake, alert, oriented as noted, cognitive function appears baseline with underlying Parkinson's with some dementia component; pupils equally reactive to light and accommodation, cranial nerves grossly normal, moving all 4 extremities except expected limitation right upper extremity given recent fall with right humeral fracture, no focal deficit, sensation intact, strength severely globally decreased secondary to acute presentation. Psychiatric: Affect appears fatigued otherwise normal, no acute evidence of depressive or anxiety feelings. Results Lab / Micro Data 11/02/23 15:59 11/02/23 15:59 Labs: Laboratory Results - last 24 hr 11/02/23 15:59: WBC 16.3 H, RBC 3.57 L, Hgb 10.7 L, Hct 33.6 L, MCV 94.1, MCH 30.0, MCHC 31.8 L, RDW Std Deviation 48.7 H, RDW Coeff of [place] 14.2, Plt Count 299, MPV 10.2, Immature Gran % (Auto) 0.400, Neut % (Auto) 30.3 L, Lymph % (Auto) 52.1 H, [place] % (Auto) 11.0 H, Eos % (Auto) 3.7, Baso % (Auto) 2.5 H, Absolute Neuts (auto) 4.9, Absolute Lymphs (auto) 8.49 H, Nucleated RBC % 0, Differential Comment SCANNED, Diff Path Review October, Sodium 135 L, Potassium 4.0, Chloride 103, Carbon Dioxide 28.0, Anion Gap 4 L, BUN 26 H, Creatinine 1.16 H, Estim Creat Clear Calc 24.54, Est GFR (MDRD) Af Amer 57 L, Est GFR (MDRD) Non-Af 47 L, BUN/Creatinine Ratio 22.4 H, Glucose 120 H, Calcium 8.3 L Imaging Radiology Impression Brain CT 11/02/23 15:52 IMPRESSION: Chronic involutional changes of the brain. Electronically Signed: Mitchel Suggs MD at 16:42 EDT , Shoulder X-Ray 11/02/23 16:15 IMPRESSION: Impacted humeral neck fracture Electronically Signed: Mitchel Suggs MD at 16:44 EDT Reading Location ID and State: [address] [place] [address] Tel , Service support , Assessment & Plan Assessment/Plan (1) Closed fracture of proximal end of right humerus: (2) Closed head injury without concussion: (3) Accidental fall: PLAN: Plan The patient is an 88 y/o F currently residing in Assisted living w/ PMHx: Chronic anemia, CKD stage III unclear subtype per GFR trending, Hx TIA, Parkinson's disease w/ underlying dementia component with behavioral disturbance history with agitation during admissions primarily in the evenings w/ frequent fall history, Hx Lymphoma, Hx Atrial myxoma, Valvular Heart Disease, Chronic orthostatis, HTN, HLD, Hx Parotid tumor, Hx PAC/PVC, recent discharge 09/14/2023 following syncope assessment with also noted unremarkable EEG and no cardiac arrhythmia with increase of her midodrine secondary to significant orthostatic hypotension to 10 mg p.o. 3 times daily and transition to skilled facility following who now represents to the [facility] ED on 11/02/23 with history of unfortunate mechanical fall attempting to walk without use of her walker when her toe caught the edge of something prompting her to fall onto her right shoulder and hit her head with no loss of consciousness. #1. Adult FTT, General debility with mechanical fall w/ right shoulder impacted humeral neck fracture (given not displaced it is nonoperative) and closed head injury without concussion: Will admit to [facility] as full admission given high risk falls with underlying Parkinson disease and unable to use her dominant R arm now more high risk to use walk thus expect at least 2 day admission given will need placement, will maintain nonweightbearing status to the affected extremity, will maintain sling, icing will be encouraged, monitor I/Os, frequent positioning, fall precautions, as needed pain and anti-emetic regimen. PT/OT assessments for discharge planning. CM consulted for discharge planning. #2. Chart Reported Hx Valvular heart disease: Most recent echocardiogram noted 06/28/2023 with normal LV size, LV systolic function normal, EF 70%, structurally normal valves. Prior echocardiogram had noted mild MVI and trivial LEON. #3. Chronic Kidney Disease Stage III per GFR trending, unclear subtype: Admission BUN/Cr 26/1.16, GFR 47, baseline renal function 0.9-1.2, repeat BMP in AM. #4. Chronic normocytic anemia: Admission hemoglobin 10.7, MCV 94.1, baseline hemoglobin appears more recently 10-11 range, stable, continue to trend. #5. 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 Continue to strongly encourage patient to use her walker so that this does not recur or at least decreases her risk. Will have low-dose Seroquel if recurrent significant evening agitation onset. #6. History PAC/PVC: Will cautiously continue patient home metoprolol therapy given her significant chronic orthostasis history. #7. Hypertension: Will continue patient low-dose metoprolol regimen cautiously, PRN IV hydralazine. #8. Hyperlipidemia: We will continue patient on statin therapy. #9. Chronic orthostasis: We will continue patient home midodrine regimen 3 times daily, maintain on fall precautions. 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 #11. Lymphoma: Unclear specific type or diagnosis timeline, given presentation with lymphocytosis and the fact that patient does admit she sees Dr. Brooks [facility] oncology routinely suspect this is an ongoing health issue, encourage continued follow-up as previously arranged. #12. DVT prophylaxis: Heparin. #13. CODE status: Patient IGNACIA is her [id number] and her son who are present and living will is currently in place. Discussed CODE status at length including difference between FULL code, DNR-CCA and DNR-CC status. Following discussions about the differences in these status, requested DNR-CCA, no intubation status. Advanced Care Planning Face to Face Time: 16 minutes. Charges/Coding Visit Charges Inpatient E&M: 06263 Init Hosp L3 Procedures Hospitalists Procedures: 80492 Advncd Care Plan 30 Min
[2023-11-02 17:42] VITALS: BP 173/80; PULSE 91
[2023-11-02 17:56] VITALS: BP 164/78; PULSE 65; RESP 17; TEMP 36.8; O2SAT 94
[2023-11-02 18:07] VITALS: BMI 19.1
[2023-11-02 18:16] VITALS: BP 186/89; PULSE 52; RESP 16; TEMP 36.6; O2SAT 96
[2023-11-02] MEDS: Acetaminophen 325 MG Tablet 650 MG PO ×2 (18:36→22:36)
[2023-11-02 22:02] VITALS: O2SAT 97
[2023-11-02 22:11] VITALS: BP 147/70; PULSE 51; RESP 18; TEMP 36.6; O2SAT 98
[2023-11-02] MEDS: Heparin Injection (Vial) 5,000 UNIT/ML VIAL 5000 UNIT SC (22:16)
[2023-11-02] MEDS: Atorvastatin Calcium 40 MG Tablet PO (22:16)
[2023-11-03 04:22] VITALS: BP 132/74; PULSE 78; RESP 16; TEMP 36.9; O2SAT 93
[2023-11-03 04:27] VITALS: BMI 19.2
[2023-11-03] MEDS: Glycerin/Hypromellose/PEG400 15 ml Bottle 1 DRP EACH EYE ×2 (06:03→21:05)
[2023-11-03] MEDS: Carbidopa/Levodopa 25/100 Tablet PO ×3 (06:03→17:04)
[2023-11-03 06:27] LABS: Basophil# 0.29 X10^3/uL; Basophil% 1.9 % (0-1); Hematocrit 33.9 % (37-47); Hemoglobin 10.9 g/dL (12.0-15.0); Lymphocyte % 34.5 % (19-41); Mean Corp Hgb Conc 32.2 g/dL (32-36); Mean Corpuscular Hgb 30.2 pg (27.0-32.0); Mean Corpuscular Volume 93.9 fL (81-99); Mean Platelet Vol. 10.8 fl (6.2-12.0); Monocyte# 1.22 X10^3/uL; Monocyte% 8.1 % (0-10); NRBC Flagged by Analyzer 0 % (0-5); Neutrophil # 8.01 X10^3/uL (2.7-7.7); Neutrophil % 53.1 % (47-70); POSITIVE DIFFERENTIAL YES; Platelet Count 310 K/mm3 (150-450); RBC Distribution Width CV 14.2 % (11.6-14.6); RBC Distribution Width SD 49.4 fl (35.1-43.9); Red Blood Count 3.61 M/mm3 (4.2-5.4); White Blood Count 15.1 K/mm3 (4.4-11.0)
[2023-11-03 06:29] LABS: Differential Indicated SCAN CRITERIA MET
[2023-11-03 06:52] LABS: AST(SGOT) 34 U/L (15-37); Alanine Aminotransfer ALT/SGPT 24 U/L (13-56); Albumin, Serum 3.1 g/dL (3.2-5.0); Alkaline Phosphatase 117 U/L (45-117); Anion Gap 2 (5-15); BUN 22 mg/dL (7-18); BUN/Creat Ratio 19.3 RATIO (10-20); Calcium,Total 8.8 mg/dL (8.5-10.1); Chloride 105 mmol/L (98-107); Creatinine, Serum 1.14 mg/dL (0.55-1.02); EST Glomerular Filtration Rate 48 mL/min (>60); Est Glom Filt Rate - Afr Amer 58 mL/min (>60); Estimated Creatinine Clearance 25.36 ml/min; Globulin 3.2 g/dL (2.2-4.2); Glucose 93 mg/dL (74-106); Potassium 4.7 mmol/L (3.5-5.1); Protein, Total 6.3 g/dL (6.4-8.2); Sodium Level 136 mmol/L (136-145)
[2023-11-03 06:57] LABS: Differential Comment SCANNED
[2023-11-03 08:22] VITALS: O2SAT 95
[2023-11-03] MEDS: Famotidine 20 MG Tablet PO (09:34)
[2023-11-03] MEDS: Aspirin 81 MG TAB.CHEW PO (09:34)
[2023-11-03 09:35] VITALS: PULSE 70
[2023-11-03] MEDS: Metoprolol(XL)Succ 25 MG Tablet PO (09:35)
[2023-11-03] MEDS: Heparin Injection (Vial) 5,000 UNIT/ML VIAL 5000 UNIT SC ×2 (09:35→21:05)
[2023-11-03 09:47] VITALS: BP 145/60; PULSE 62; RESP 18; TEMP 36.7; O2SAT 95
--- NOTE | 2023-11-03 09:48 | PN.HOSP_ITS ---
Reason for Visit Reason for Visit: Diagnoses Unspecified injury of head, initial encounter (11/02/23) Unspecified fracture of upper end of right humerus, initial encounter for closed fracture (11/02/23) Unspecified fall, initial encounter (11/02/23) Objective Data Objective Data Vital Signs: Vital Signs Temp Pulse Resp BP Pulse Ox O2 Del Method 98.4 F 70 16 132/74 H 95 Room Air 11/03/23 04:22 11/03/23 09:35 11/03/23 04:22 11/03/23 04:22 11/03/23 08:22 11/03/23 08:22 Oxygen Delivery Method Room Air Weight: 101 lb 13.657 oz Body Mass Index (BMI) 19.2 Intake & Output: Intake and Output for Last 24 Hours 11/01/23 11/02/23 11/03/23 23:59 23:59 23:59 Intake Total 100 / 100 100 / 100 Output Total 150 / 150 150 / 150 Balance -50 / -50 -50 / -50 Lab / Micro Data 11/03/23 05:08 11/03/23 05:08 Labs: Laboratory Results - last 24 hr 11/02/23 15:59: WBC 16.3 H, RBC 3.57 L, Hgb 10.7 L, Hct 33.6 L, MCV 94.1, MCH 30.0, MCHC 31.8 L, RDW Std Deviation 48.7 H, RDW Coeff of [place] 14.2, Plt Count 299, MPV 10.2, Immature Gran % (Auto) 0.400, Neut % (Auto) 30.3 L, Lymph % (Auto) 52.1 H, [place] % (Auto) 11.0 H, Eos % (Auto) 3.7, Baso % (Auto) 2.5 H, Absolute Neuts (auto) 4.9, Absolute Lymphs (auto) 8.49 H, Nucleated RBC % 0, Differential Comment SCANNED, Diff Path Review October, Sodium 135 L, Potassium 4.0, Chloride 103, Carbon Dioxide 28.0, Anion Gap 4 L, BUN 26 H, Creatinine 1.16 H, Estim Creat Clear Calc 24.54, Est GFR (MDRD) Af Amer 57 L, Est GFR (MDRD) Non-Af 47 L, BUN/Creatinine Ratio 22.4 H, Glucose 120 H, Calcium 8.3 L 11/03/23 05:08: WBC 15.1 H, RBC 3.61 L, Hgb 10.9 L, Hct 33.9 L, MCV 93.9, MCH 30.2, MCHC 32.2, RDW Std Deviation 49.4 H, RDW Coeff of [place] 14.2, Plt Count 310, MPV 10.8, Immature Gran % (Auto) 0.400, Neut % (Auto) 53.1, Lymph % (Auto) 34.5, [place] % (Auto) 8.1, Eos % (Auto) 2.0, Baso % (Auto) 1.9 H, Absolute Neuts (auto) 8.0 H, Absolute Lymphs (auto) 5.20 H, Nucleated RBC % 0, Differential Comment SCANNED, Sodium 136, Potassium 4.7, Chloride 105, Carbon Dioxide 29.0, Anion Gap 2 L, BUN 22 H, Creatinine 1.14 H, Estim Creat Clear Calc 25.36, Est GFR (MDRD) Af Amer 58 L, Est GFR (MDRD) Non-Af 48 L, BUN/Creatinine Ratio 19.3, Glucose 93, Calcium 8.8, Total Bilirubin 0.60, AST 34, ALT 24, Alkaline Phosphatase 117, T otal Protein 6.3 L, Albumin 3.1 L, Globulin 3.2, Albumin/Globulin Ratio 1.0 Radiography Diagnostic Testing: Radiology Impression Brain CT 11/02/23 15:52 IMPRESSION: Chronic involutional changes of the brain. Electronically Signed: Mitchel Suggs MD at 16:42 EDT Reading Location ID and State: [address] [place] [address] Tel , Service support , Shoulder X-Ray 11/02/23 16:15 IMPRESSION: Impacted humeral neck fracture Electronically Signed: Mitchel Suggs MD at 16:44 EDT Reading Location ID and State: [facility] / [place] Tel , Service support , Assessment & Plan Assessment/Plan (1) Closed fracture of proximal end of right humerus: (2) Closed head injury without concussion: (3) Accidental fall: PLAN: Plan The patient is an 88 y/o F [facility] with fall on the right shoulder and hitting her head with no loss of consistent and further assessment was made right shoulder impacted humeral fracture #1. Adult FTT, General debility with mechanical fall w/ right shoulder impacted humeral neck fracture (given not displaced it is nonoperative) and closed head injury without concussion: Admitted on [facility] floor. PT and OT. Supportive management. continuous improvement manager to help with discharge. Pain controlled. Patient on stool softener as he is on opioid oxycodone. On right shoulder swath and sling. #2. Chart Reported Hx Valvular heart disease: Most recent echocardiogram noted 06/28/2023 with normal LV size, LV systolic function normal, EF 70%, structurally normal valves. Prior echocardiogram had noted mild MVI and trivial LEON. #3. Chronic Kidney Disease Stage III per GFR trending, unclear subtype: Admission BUN/Cr 26/1.16, GFR 47, baseline renal function 0.9-1.2. Creatinine slight improvement to 1.14. On baseline #4. Chronic normocytic anemia: Admission hemoglobin 10.7, MCV 94.1, baseline hemoglobin appears more recently 10-11 range 11/02: Repeat CBC shows H&H on baseline. #5. 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 Continue to strongly encourage patient to use her walker so that this does not recur or at least decreases her risk. Will have low-dose Seroquel if recurrent significant evening agitation onset. #6. History PAC/PVC: Will cautiously continue patient home metoprolol therapy given her significant chronic orthostasis history. #7. Hypertension: Will continue patient low-dose metoprolol regimen cautiously, PRN IV hydralazine. #8. Hyperlipidemia: We will continue patient on statin therapy. #9. Chronic orthostasis: We will continue patient home midodrine regimen 3 times daily, maintain on fall precautions. 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 #11. Lymphoma: Unclear specific type or diagnosis timeline, given presentation with lymphocytosis and the fact that patient does admit she sees Dr. Brooks [facility] oncology routinely suspect this is an ongoing health issue, encourage continued follow-up as previously arranged. #12. DVT prophylaxis: Heparin. #13. CODE status: Patient IGNACIA is her [id number] and her son who are present and living will is currently in place. Discussed CODE status at length including difference between FULL code, DNR-CCA and DNR-CC status. Following discussions about the differences in these status, requested DNR-CCA, no intubation status. Charges/Coding Visit Charges Inpatient E&M: 51254 Subs Hosp L2
--- NOTE | 2023-11-03 11:51 | CASEMGMT ---
Social Work SW reviewed chart, pt is here from [place], went there after a stay in TCU in September. SW met w/pt, pt is aware came in from [place]. Pt confirmed has been there for about a month, does not exactly remember where she was prior to that. She is not certain if she can return to [place] or not. She confirms her family helps w/decisions, is agreeable to SW calling DIL Sindhu who is listed as POA. She states Sindhu may not answer though as she teaches. SW gently reminded pt it is Sunday. SW called Sindhu, message left. SW called son Lalo. SW explained did call Sindhu(Lalo's ) and left a message. SW explained is looking into the best plan for pt when she is ready to leave. Pt does have her arm in a sling which may make it difficult for her to manage in [place]. Son Lalo agreeable to a referral to TCU. SW inquired about other options if TCU cannot take pt. He is not sure, SW explained will leave a SNF list in the room for he and family to review, and they can let SW know Sunday other options if TCU does not have a bed or cannot take pt. SW put phone number on the list as well. SW left list in pt's room from [facility] of care home facilities in network w/pt's insurance, in pt's preferred geographic area and complete w/quality and resource use data. Family to review and let SW know additional choices Sunday. Plan: SNF, facility TBD NANCY Hernández
[2023-11-03 20:42] VITALS: BP 152/80; PULSE 56; RESP 16; TEMP 36.8; O2SAT 97
[2023-11-03] MEDS: Atorvastatin Calcium 40 MG Tablet PO (21:06)
[2023-11-03] MEDS: Acetaminophen 325 MG Tablet 650 MG PO (21:15)
[2023-11-04] VITALS (9 sets, daily range): BP systolic 116–160; BP diastolic 58–89; PULSE 60–82; RESP 16–20; TEMP 36.2–36.8; O2SAT 92–98; BMI 18.4
[2023-11-04] MEDS: Acetaminophen 325 MG Tablet 650 MG PO ×2 (01:44→21:23)
[2023-11-04] MEDS: Glycerin/Hypromellose/PEG400 15 ml Bottle 1 DRP EACH EYE ×3 (06:16→21:19)
[2023-11-04] MEDS: Carbidopa/Levodopa 25/100 Tablet PO ×3 (06:16→16:58)
--- NOTE | 2023-11-04 08:23 | NURSING ---
into pt's room with breakfast tray that had been sat at the desk. pt noted to be drowsy and bobbing her head. pt repositioned in chair. pt noted to be opening eyes with tactile stimuli but no verbal response. bp 72/44 hr 60's. pt layed prone in recliner 89/43. more alert but continues to be not communicating. meteorological technician in room went to get primary RN and OT checked as 122. therapy to room and assisted with placing pt back to bed reverse transver. position. bp 96/46-86-94%RA. pt will open eyes on verbal stimuli and will say yeah but does not follow commands. Dr. Massey sent text
--- NOTE | 2023-11-04 08:41 | CT_ITS ---
HISTORY: AMS. TECHNIQUE: Multiple axial images were obtained of the head without intravenous contrast. A radiation dose optimization technique was used for this scan. 246 images. COMPARISON: 11/02/2023. FINDINGS: BRAIN PARENCHYMA: Multiple foci and zones of low attenuation in the bilateral cerebral white matter compatible with chronic small vessel ischemic gliosis. No acute intra-axial hemorrhage identified. CSF SPACES: Generalized volume loss. No midline shift or other significant mass effect. No acute extra-axial hemorrhage seen. OTHER: Intact calvarium. No significant air fluid levels in the paranasal sinuses or mastoid air cells. Bilateral lens resections. CT/Brain/Head without Contrast IMPRESSION: No acute intracranial process identified. Chronic involutional and white matter changes. Electronically Signed: Ree Albright MD at 9:56 EDT ,
[2023-11-04] MEDS: 0.9% Normal Saline (500mL Bag) 500 ML 999 ML IV (08:49)
--- NOTE | 2023-11-04 08:55 | NURSING ---
Pt is on the way to CT scan with Estefani Olivera RN charge and RAMIRO Parker assisting pt via bed. Pt was found sitting in chair bobbing head and not responding to Nurse per Estefani Casillas RN. This RN was with another pt but Estefani and Therapy got pt back to bed. Vitals were taken. Blood sugar was 122 per Estefani Olivera RN. Dr. Massey was called and came to see pt. IVF bolus ordered and CT Scan also ordered. This RN is calling family to inform. Pt is awake eyes open responds with yes but does not follow commands.
--- NOTE | 2023-11-04 09:03 | NURSING ---
This RN called Gonzalez her son and left message to call this RN back so this RN called other son Lalo. Lalo made aware of findings this morning and that pt is now in CT scan. After this RN hung up phone, Gonzalez called back and spoke to this RN and made aware of the findings.
--- NOTE | 2023-11-04 09:15 | NURSING ---
PT TRANSPORTED TO AND FROM CT BY THIS NURSE AND DAYCARE DIRECTOR. PT DID BECOME MORE ALERT AFTER CT, PT NOW OPENS EYES AND ABLE TO VERBALIZE SUN/ WAS BORN. BP NOTED TO BE138/61-66-96%RA, 97.8 BEDEXIT MAINTAINED, BOLUS INFUSING
[2023-11-04] MEDS: Dextrose 5%/0.9% NaCl 1,000 ML 75 ML IV (09:30)
--- NOTE | 2023-11-04 10:19 | PN.HOSP_ITS ---
Reason for Visit Reason for Visit: Diagnoses Unspecified injury of head, initial encounter (11/02/23) Unspecified fracture of upper end of right humerus, initial encounter for closed fracture (11/02/23) Unspecified fall, initial encounter (11/02/23) Objective Data Objective Data Vital Signs: Vital Signs Temp Pulse Resp BP Pulse Ox O2 Del Method 97.8 F 66 18 138/61 H 96 Room Air 11/04/23 09:18 11/04/23 09:18 11/04/23 09:18 11/04/23 09:18 11/04/23 09:18 11/04/23 09:18 Oxygen Delivery Method Room Air Weight: 97 lb 14.164 oz Body Mass Index (BMI) 18.4 Intake & Output: Intake and Output for Last 24 Hours 11/02/23 11/03/23 11/04/23 23:59 23:59 23:59 Intake Total 100 / 100 300 / 300 500 / 500 Output Total 150 / 150 450 / 450 Balance -50 / -50 -150 / -150 500 / 500 Lab / Micro Data 11/03/23 05:08 11/03/23 05:08 Radiography Diagnostic Testing: Radiology Impression Brain CT 11/04/23 08:41 IMPRESSION: No acute intracranial process identified. Chronic involutional and white matter changes. Electronically Signed: Ree Albright MD at 9:56 EDT , Physical Exam Narrative Seen and examined. Patient is little drowsy and lethargic and somnolent in the morning. Her BP was low 72/43 but repeat was 118/60. 500 Normal Saline bolus ordered. CT head was done for altered mental status. Physical exam General: lethargic, obtunded later on was more responsive HEENT: Atraumatic, PERRLA, EOMI, Normocephalic Oral: Oral mucosa dry. No Gingival or Mucosal Lesions/ Ulcerations Neck: Supple, No JVD, Negative Carotid Bruits Chest wall/Lungs: Air entry diminished in bilateral lung bases. No crepitation/rhonchi Cardiovascular: Regular rate, Regular Rhythm, Normal S1, Normal S2, systolic murmur present. Abdomen: Bowel Sounds Present, Soft, Non Tender, Non-Distended : No dysuria. No renal angle tenderness. No suprapubic tenderness. Extremities: No edema, Capillary Refill Less than 3 Seconds Skin: Bruise/ecchymosis over right supraorbital margin. Musculoskeletal: Fracture and tenderness over right upper one third of humerus with tenderness. On sling and swath. Neurological: Cranial nerves II-XII grossly intact, DTR 2+/4. No acute focal neurological deficit. Psych/Mental Status: Flat affect. Assessment & Plan Assessment/Plan (1) Closed fracture of proximal end of right humerus: (2) Closed head injury without concussion: (3) Accidental fall: PLAN: Plan The patient is an 88 y/o F was admitted from [facility] on 11/02/23 with fall on the right shoulder and hitting her head with no loss of consistent and further assessment was made right shoulder impacted humeral fracture #1. Adult FTT, General debility with mechanical fall w/ right shoulder impacted humeral neck fracture (given not displaced it is nonoperative) and closed head injury without concussion: Admitted on MedSur floor. PT and OT. Supportive management. solar energy installation manager to help with discharge. Pain controlled. Patient on stool softener as he is on opioid oxycodone. On right shoulder swath and sling. 11/03: Patient was more somnolent with RT. BP was low, hypotension 22/43 got better with 500 normal saline bolus and 18/60. Continue IV fluid D5 [place] for maintenance nutrition as patient is not eating well. Mild dehydration. CT head was done which did not show acute intracranial abnormality. PT and OT. Patient chronically on midodrine 10 mg 3 times daily. #2. Chart Reported Hx Valvular heart disease: Most recent echocardiogram noted 06/28/2023 with normal LV size, LV systolic function normal, EF 70%, structurally normal valves. Prior echocardiogram had noted mild MVI and trivial LEON. #3. Chronic Kidney Disease Stage III per GFR trending, unclear subtype: Admission BUN/Cr 26/1.16, GFR 47, baseline renal function 0.9-1.2. Creatinine slight improvement to 1.14. On baseline #4. Chronic normocytic anemia: Admission hemoglobin 10.7, MCV 94.1, baseline hemoglobin appears more recently 10-11 range 5/18: Repeat CBC shows H&H on baseline. #5. 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 11/03: Patient on Sinemet 2 tablet p.o. 3 times daily that can also make drowsy or lethargic. Patient has underlying dementia and. Disturbance. #6. History PAC/PVC: Will cautiously continue patient home metoprolol therapy given her significant chronic orthostasis history. #7. Hypertension: patient low-dose metoprolol regimen cautiously, PRN IV hydralazine. #8. Hyperlipidemia: continue patient on statin therapy. #9. Chronic orthostasis: We will continue patient home midodrine regimen 3 times daily, maintain on fall precautions. 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 #11. Lymphoma: Unclear specific type or diagnosis timeline, given presentation with lymphocytosis and the fact that patient does admit she sees Dr. Brooks [facility] oncology routinely suspect this is an ongoing health issue, encourage continued follow-up as previously arranged. #12. DVT prophylaxis: Heparin. #13. CODE status: Patient IGNACIA is her [id number] and her son who are present and living will is currently in place. Discussed CODE status at length including difference between FULL code, DNR-CCA and DNR-CC status. Following discussions about the differences in these status, requested DNR-CCA, no intubation status. Charges/Coding Visit Charges Inpatient E&M: 06568 Subs Hosp L2
[2023-11-04] MEDS: Aspirin 81 MG TAB.CHEW PO (10:38)
[2023-11-04] MEDS: Psyllium 1 PACKET PO (10:39)
[2023-11-04] MEDS: Senna/Docusate Sodium 1 Tablet 2 TABLET PO (10:39)
[2023-11-04] MEDS: Pantoprazole Sodium 20 MG Tablet PO (10:41)
[2023-11-04] MEDS: Metoprolol(XL)Succ 25 MG Tablet PO (13:06)
--- NOTE | 2023-11-04 18:25 | NURSING ---
size tester called this nurse to room for skin tear on rle-grier. noted approx.3cm skin tear to rle clean edges, cleansed adaptic and opsite placed.
--- NOTE | 2023-11-04 20:03 | NURSING ---
this RN rounding and found pt on the floor by her recliner. pt confused at baseline, denies hitting her head. vitals taken and documented. spoke to the Hospitalist Dr. Purcell and made him aware pt found on the floor and chair alar did not go off. pt ambulated with RN and got back in bed fine. sling on her Rt arm intact from previous humeral fx. bed exit on. No new orders from the Dr. Will call pts family. grouter helper called supervisor seaming and made her aware.
--- NOTE | 2023-11-04 20:20 | NURSING ---
Spoke to Sindhu BLOCK, made her aware pt was found on the floor next to her chair, chair alarm did not go off, pt denies hitting her head or hurting anywhere. pt states she was getting dressed. pt got back in bed and bed exit is on. Sindhu states pt is confused and to make sure bed exit is on. also states that Lalo(pts son) is not available and to call her if something happens.
[2023-11-04] MEDS: Atorvastatin Calcium 40 MG Tablet PO ×2 (21:19→21:22)
[2023-11-04 22:01] LABS: Bedside Glucose 122 mg/dL (74-106)
[2023-11-05] VITALS (8 sets, daily range): BP systolic 124–188; BP diastolic 79–90; PULSE 61–70; RESP 16; TEMP 36.6–36.8; O2SAT 92–97; BMI 18.9
[2023-11-05] MEDS: Glycerin/Hypromellose/PEG400 15 ml Bottle 1 DRP EACH EYE (05:51)
[2023-11-05] MEDS: Carbidopa/Levodopa 25/100 Tablet PO ×2 (05:51→10:20)
[2023-11-05 07:05] LABS: Absolute Lymphocyte Count 4.63 X10^3/uL (0.83-4.51); Absolute Neutrophil Count 9.7 X10^3/uL (2.0-7.7); Basophil# 0.25 X10^3/uL; Basophil% 1.5 % (0-1); Eosinophil# 0.06 X10^3/uL; Eosinophils% 0.4 % (0-5); Hematocrit 29.3 % (37-47); Hemoglobin 9.7 g/dL (12.0-15.0); Lymphocyte # 4.63 X10^3/ul (0.83-4.51); Lymphocyte % 28.2 % (19-41); Mean Corp Hgb Conc 33.1 g/dL (32-36); Mean Corpuscular Hgb 30.5 pg (27.0-32.0); Mean Corpuscular Volume 92.1 fL (81-99); Mean Platelet Vol. 10.4 fl (6.2-12.0); Monocyte# 1.63 X10^3/uL; Monocyte% 9.9 % (0-10); NRBC Flagged by Analyzer 0 % (0-5); Neutrophil # 9.71 X10^3/uL (2.7-7.7); Neutrophil % 59.3 % (47-70); POSITIVE DIFFERENTIAL YES; Platelet Count 252 K/mm3 (150-450); RBC Distribution Width CV 13.9 % (11.6-14.6); RBC Distribution Width SD 47.9 fl (35.1-43.9); Red Blood Count 3.18 M/mm3 (4.2-5.4); White Blood Count 16.4 K/mm3 (4.4-11.0)
[2023-11-05 07:31] LABS: Anion Gap 4 (5-15); BUN 18 mg/dL (7-18); BUN/Creat Ratio 21.2 RATIO (10-20); Calcium,Total 8.5 mg/dL (8.5-10.1); Chloride 106 mmol/L (98-107); Creatinine, Serum 0.85 mg/dL (0.55-1.02); EST Glomerular Filtration Rate 67 mL/min (>60); Est Glom Filt Rate - Afr Amer 81 mL/min (>60); Estimated Creatinine Clearance 33.46 ml/min; Glucose 118 mg/dL (74-106); Potassium 3.5 mmol/L (3.5-5.1); Sodium Level 136 mmol/L (136-145)
[2023-11-05 07:45] LABS: Differential Indicated SCAN CRITERIA MET
[2023-11-05] MEDS: Aspirin 81 MG TAB.CHEW PO (08:34)
--- NOTE | 2023-11-05 09:23 | CASEMGMT ---
Discharge Planning Updates sent to [facility]. Asked if they were comfortable with patient returning to [facility]. Awaiting response. Magaly Tobin, Discharge Planning Asst.
--- NOTE | 2023-11-05 09:53 | PN.HOSP_ITS ---
Subjective Subjective Doing well, no issues overnight Objective Data Objective Data Vital Signs: Vital Signs Temp Pulse Resp BP Pulse Ox O2 Del Method O2 Flow Rate 98.2 F 62 16 124/80 H 93 Room Air 4 11/05/23 08:20 11/05/23 08:20 11/05/23 08:20 11/05/23 08:20 11/05/23 08:20 11/05/23 08:20 11/05/23 07:43 Oxygen Flow Rate (L/min) 4 Oxygen Delivery Method Room Air Weight: 100 lb 3.2 oz Body Mass Index (BMI) 18.9 Intake & Output: Intake and Output for Last 24 Hours 11/04/23 11/05/23 11/06/23 03:59 03:59 03:59 Intake Total 300 / 300 1860 / 1860 Output Total 450 / 450 300 / 300 400 / 400 Balance -150 / -150 1560 / 1560 -400 / -400 Lab / Micro Data 11/05/23 06:50 11/05/23 06:50 Labs: Laboratory Results - last 24 hr 11/04/23 08:23: POC Glucose 122 H 11/05/23 06:50: WBC 16.4 H, RBC 3.18 L, Hgb 9.7 L, Hct 29.3 L, MCV 92.1, MCH 30.5, MCHC 33.1, RDW Std Deviation 47.9 H, RDW Coeff of [place] 13.9, Plt Count 252, MPV 10.4, Immature Gran % (Auto) 0.700, Neut % (Auto) 59.3, Lymph % (Auto) 28.2, Kimball % (Auto) 9.9, Eos % (Auto) 0.4, Baso % (Auto) 1.5 H, Absolute Neuts (auto) 9.7 H, Absolute Lymphs (auto) 4.63 H, Nucleated RBC % 0, Diff Path Review May foll, Sodium 136, Potassium 3.5, Chloride 106, Carbon Dioxide 26.0, Anion Gap 4 L, BUN 18, Creatinine 0.85, Estim Creat Clear Calc 33.46, Est GFR (MDRD) Af Amer 81, Est GFR (MDRD) Non-Af 67, BUN/Creatinine Ratio 21.2 H, Glucose 118 H, Calcium 8.5 Radiography Diagnostic Testing: Radiology Impression Brain CT 11/04/23 08:41 IMPRESSION: No acute intracranial process identified. Chronic involutional and white matter changes. Electronically Signed: Ree Albright MD at 9:56 EDT , Physical Exam Narrative General: Alert, Oriented x3, Cooperative, No apparent distress HEENT: Atraumatic, PERRLA, EOMI, Normocephalic Oral: Moist Mucosa Neck: Supple, No JVD Lungs: Diminished, Normal air movement, No rhonchi, No wheeze, No rales Cardiovascular: Regular rate, Regular Rhythm, Normal S1, Normal S2, No murmurs Abdomen: Soft, Non Tender, Non-Distended, No Hepato-splenomegaly Extremities: No edema, Capillary Refill Less than 3 Seconds Skin: No rashes, No breakdown Musculoskeletal: Right upper extremity tenderness Neurological: No focal neurological deficits, Motor Exam 5/5 strength throughout, Sensory exam intact to light touch and pain Psych/Mental Status: Normal Affect, Appropriate Assessment & Plan Assessment/Plan (1) Closed fracture of proximal end of right humerus: (2) Closed head injury without concussion: (3) Accidental fall: PLAN: Plan #1. Adult FTT, General debility with mechanical fall w/ right shoulder impacted humeral neck fracture (given not displaced it is nonoperative) and closed head injury without concussion: Admitted on MedSur floor. PT and OT. Supportive management. area loss prevention manager to help with discharge. Pain controlled. Patient on stool softener as he is on opioid oxycodone. On right shoulder swath and sling. 11/05/2023: Stable for discharge to SNF when pre-CERT is obtained #2. Chart Reported Hx Valvular heart disease: Most recent echocardiogram noted 06/28/2023 with normal LV size, LV systolic function normal, EF 70%, structurally normal valves. Prior echocardiogram had noted mild MVI and trivial LEON. #3. Chronic Kidney Disease Stage III per GFR trending, unclear subtype: Admission BUN/Cr 26/1.16, GFR 47, baseline renal function 0.9-1.2. Creatinine slight improvement to 1.14. On baseline #4. Chronic normocytic anemia: Admission hemoglobin 10.7, MCV 94.1, baseline hemoglobin appears more recently 10-11 range 11/02: Repeat CBC shows H&H on baseline. 11/05/2023: Anemia stable we will continue to monitor here and as an outpatient #5. 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 Continue to strongly encourage patient to use her walker so that this does not recur or at least decreases her risk. Will have low-dose Seroquel if recurrent significant evening agitation onset. #6. History PAC/PVC: Will cautiously continue patient home metoprolol therapy given her significant chronic orthostasis history. #7. Hypertension: Will continue patient low-dose metoprolol regimen cautiously, PRN IV hydralazine. #8. Hyperlipidemia: We will continue patient on statin therapy. #9. Chronic orthostasis: We will continue patient home midodrine regimen 3 times daily, maintain on fall precautions. 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 #11. Lymphoma: Unclear specific type or diagnosis timeline, given presentation with lymphocytosis and the fact that patient does admit she sees Dr. Brooks [facility] oncology routinely suspect this is an ongoing health issue, encourage continued follow-up as previously arranged. 11/05/2023: Leukocytosis remained stable DVT: Heparin Charges/Coding Visit Charges Inpatient E&M: 01079 Subs Hosp L2
[2023-11-05] MEDS: Senna/Docusate Sodium 1 Tablet 2 TABLET PO ×2 (10:09→21:00)
[2023-11-05] MEDS: Pantoprazole Sodium 20 MG Tablet PO (10:09)
[2023-11-05] MEDS: Metoprolol(XL)Succ 25 MG Tablet PO (10:18)
[2023-11-05] MEDS: Menthol/Lanolin/Calamine/Znox 113 GM Tube 1 APPLIC TOPICAL ×2 (10:20→20:55)
--- NOTE | 2023-11-05 11:30 | CASEMGMT ---
Discharge Planning [facility] updated that patient will discharge to TCU before returning to [facility]. Magaly Tobin DC Planning Asst.
--- NOTE | 2023-11-05 12:24 | CASEMGMT ---
Social Work- SW confirmed that TCU will accept pt. SW shared this with pt son, Lalo. Estefani at [facility] will start precert. WRAND advised that pt will not be returning immediately d/t d/c to TCU. DANIEL Chatman
[2023-11-05 13:25] LABS: Pathologist Review Reviewed
--- NOTE | 2023-11-05 14:58 | CHAPLAIN ---
Type of Pastoral Visit _x__ Initial Visit ___ Follow-up Visit ___ On-call Visit ___ General Patient Visit ___ Spiritual Assessment ___ Family Conference ___ Bereavement ___ Rapid Response ___ Code Blue ___ Other (describe below) Pastoral Care Referral From ___ Patient _x__ Family ___ Nurse ___ Physician ___ Manager Diabetes ___ Dental Ceramist Helper ___ Other (describe below) Sacrament/Intervention ___ Active listening ___ Anointing ___ Holiness ___ Bereavement ___ Communion ___ Karly exploration ___ ___ Life review _x__ Prayer ___ Reconciliation ___ Sacrament of Sick _x__ Supportive presence ___ Wedding ___ Other (describe below) Pastoral Comments patient is quietly resting but awakens to her name; pt answers questions but does not engage in conversation; pt admits to discomfort and pain when moved; pt says I guess I will manage when asked about her concerns; pt accepts a prayer for her help and support; pt says no other needs at this time
[2023-11-05] MEDS: AUTOLOGOUS SERUM EACH EYE ×2 (15:03→20:57)
[2023-11-05] MEDS: Psyllium 1 PACKET PO (21:00)
[2023-11-05] MEDS: 0.9% Saline Lock 10 ML Syringe IV (21:01)
[2023-11-05] MEDS: Acetaminophen 325 MG Tablet 650 MG PO (21:56)
[2023-11-06 02:15] VITALS: BP 172/92; PULSE 77; RESP 16; TEMP 36.3; O2SAT 95
[2023-11-06 05:05] VITALS: BMI 18.5
[2023-11-06] MEDS: AUTOLOGOUS SERUM EACH EYE ×2 (05:57→13:01)
[2023-11-06] MEDS: Carbidopa/Levodopa 25/100 Tablet PO ×2 (05:57→12:34)
--- NOTE | 2023-11-06 08:37 | PCM.PN.HOSP ---
Subjective Subjective Doing well, no issues overnight. She states that she slept well Objective Data Objective Data Vital Signs: Vital Signs Temp Pulse Resp BP Pulse Ox O2 Del Method O2 Flow Rate 97.3 F L 77 16 172/92 H 95 Room Air 4 11/06/23 02:15 11/06/23 02:15 11/06/23 02:15 11/06/23 02:15 11/06/23 02:15 11/06/23 02:15 11/05/23 07:43 Oxygen Flow Rate (L/min) 4 Oxygen Delivery Method Room Air Weight: 98 lb 1.691 oz Body Mass Index (BMI) 18.5 Intake & Output: Intake and Output for Last 24 Hours 11/05/23 11/06/23 11/07/23 03:59 03:59 03:59 Intake Total 1860 / 1860 200 / 200 100 / 100 Output Total 300 / 300 400 / 400 Balance 1560 / 1560 -200 / -200 100 / 100 Lab / Micro Data 11/05/23 06:50 11/05/23 06:50 Labs: Laboratory Results - last 24 hr 11/02/23 15:59: Diff Path Review Reviewed 11/05/23 06:50: Diff Path Review May foll Physical Exam Narrative General: Alert, Oriented x2, Cooperative, No apparent distress HEENT: Atraumatic, PERRLA, EOMI, Normocephalic Oral: Moist Mucosa Neck: Supple, No JVD Lungs: Diminished, Normal air movement, No rhonchi, No wheeze, No rales Cardiovascular: Regular rate, Regular Rhythm, Normal S1, Normal S2, No murmurs Abdomen: Soft, Non Tender, Non-Distended, No Hepato-splenomegaly Extremities: No edema, Capillary Refill Less than 3 Seconds Skin: No rashes, No breakdown Musculoskeletal: Right upper extremity tenderness Neurological: No focal neurological deficits, Motor Exam 5/5 strength throughout, Sensory exam intact to light touch and pain Psych/Mental Status: Normal Affect, Appropriate Assessment & Plan Assessment/Plan (1) Closed fracture of proximal end of right humerus: (2) Closed head injury without concussion: (3) Accidental fall: PLAN: Plan #1. Adult FTT, General debility with mechanical fall w/ right shoulder impacted humeral neck fracture (given not displaced it is nonoperative) and closed head injury without concussion: Admitted on MedSur floor. PT and OT. Supportive management. community case manager to help with discharge. Pain controlled. Patient on stool softener as he is on opioid oxycodone. On right shoulder swath and sling. 11/05/2023: Stable for discharge to SNF when pre-CERT is obtained 11/06/2023: Awaiting pre-CERT #2. Chart Reported Hx Valvular heart disease: Most recent echocardiogram noted 06/28/2023 with normal LV size, LV systolic function normal, EF 70%, structurally normal valves. Prior echocardiogram had noted mild MVI and trivial LEON. #3. Chronic Kidney Disease Stage III per GFR trending, unclear subtype: Admission BUN/Cr 26/1.16, GFR 47, baseline renal function 0.9-1.2. Creatinine slight improvement to 1.14. On baseline #4. Chronic normocytic anemia: Admission hemoglobin 10.7, MCV 94.1, baseline hemoglobin appears more recently 10-11 range 11/02: Repeat CBC shows H&H on baseline. 11/05/2023: Anemia stable we will continue to monitor here and as an outpatient #5. 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 Continue to strongly encourage patient to use her walker so that this does not recur or at least decreases her risk. Will have low-dose Seroquel if recurrent significant evening agitation onset. #6. History PAC/PVC: Will cautiously continue patient home metoprolol therapy given her significant chronic orthostasis history. #7. Hypertension: Will continue patient low-dose metoprolol regimen cautiously, PRN IV hydralazine. #8. Hyperlipidemia: We will continue patient on statin therapy. #9. Chronic orthostasis: We will continue patient home midodrine regimen 3 times daily, maintain on fall precautions. 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 #11. Lymphoma: Unclear specific type or diagnosis timeline, given presentation with lymphocytosis and the fact that patient does admit she sees Dr. Brooks [facility] oncology routinely suspect this is an ongoing health issue, encourage continued follow-up as previously arranged. 11/05/2023: Leukocytosis remained stable DVT: Heparin Charges/Coding Visit Charges Inpatient E&M: 19221 Subs Hosp L2
[2023-11-06 09:15] VITALS: BP 105/62; PULSE 70; PULSE 97; RESP 16; TEMP 36.6; O2SAT 96
[2023-11-06] MEDS: Midodrine HCl 5 MG Tablet 10 MG PO (09:27)
[2023-11-06] MEDS: Psyllium 1 PACKET PO (09:28)
[2023-11-06] MEDS: Pantoprazole Sodium 20 MG Tablet PO (09:28)
[2023-11-06] MEDS: Senna/Docusate Sodium 1 Tablet 2 TABLET PO (09:28)
[2023-11-06] MEDS: Aspirin 81 MG TAB.CHEW PO (09:28)
[2023-11-06] MEDS: Acetaminophen 325 MG Tablet 650 MG PO (09:36)
[2023-11-06 10:36] LABS: Pathologist Review Reviewed
[2023-11-06 12:33] VITALS: PULSE 44
[2023-11-06] MEDS: Menthol/Lanolin/Calamine/Znox 113 GM Tube 1 APPLIC TOPICAL ×2 (12:57→23:00)
--- NOTE | 2023-11-06 16:49 | CASEMGMT ---
Social Work Insurance requesting a peer to peer for physician, stating pt does not qualify for skilled. Physician did try to call the peer to peer today([phone], option 4), was put on hold for 20 minutes so will try tomorrow. SW updated son Lalo that insurance may deny TCU stay. SW explained we are trying the peer to peer but insurance may not change their answer. Son states understanding. SW explained we can see if [facility] will take pt if she is denied SNF. The other option would be to pay privately for SNF. Son did state pt would not qualify for Medicaid. SW suggested Lalo speak w/other family members on what they may want to do, try [facility] or just try for a SNF private pay. SW explained we can find out the private pay cost for any of the facilities, did let him know the cost is $660/day for TCU. Son states understanding. SW will continue to follow. NANCY Hernández
[2023-11-06 17:15] VITALS: BP 157/109; PULSE 66; RESP 18; TEMP 36.6; O2SAT 95
[2023-11-06 22:00] VITALS: BP 136/96; PULSE 72; RESP 15; TEMP 37.1; O2SAT 97
[2023-11-07 04:14] VITALS: BP 136/80; PULSE 70; RESP 15; TEMP 37.6; O2SAT 95
[2023-11-07] MEDS: Carbidopa/Levodopa 25/100 Tablet PO ×3 (04:32→15:42)
[2023-11-07 05:21] VITALS: BMI 18.9
[2023-11-07 06:43] LABS: Absolute Neutrophil Count 11.8 X10^3/uL (2.0-7.7); Basophil% 1.1 % (0-1); Eosinophil# 0.08 X10^3/uL; Eosinophils% 0.4 % (0-5); Hematocrit 33.4 % (37-47); Hemoglobin 10.8 g/dL (12.0-15.0); Mean Corp Hgb Conc 32.3 g/dL (32-36); Mean Corpuscular Hgb 30.3 pg (27.0-32.0); Mean Corpuscular Volume 93.8 fL (81-99); Mean Platelet Vol. 10.8 fl (6.2-12.0); Monocyte# 2.25 X10^3/uL; NRBC Flagged by Analyzer 0 % (0-5); Neutrophil # 11.77 X10^3/uL (2.7-7.7); POSITIVE DIFFERENTIAL YES; Platelet Count 262 K/mm3 (150-450); RBC Distribution Width SD 47.9 fl (35.1-43.9); Red Blood Count 3.56 M/mm3 (4.2-5.4); White Blood Count 18.7 K/mm3 (4.4-11.0)
[2023-11-07 06:46] LABS: Differential Indicated SCAN CRITERIA MET
[2023-11-07 07:16] LABS: Anion Gap 8 (5-15); BUN 22 mg/dL (7-18); BUN/Creat Ratio 22.6 RATIO (10-20); Calcium,Total 8.9 mg/dL (8.5-10.1); Chloride 102 mmol/L (98-107); Creatinine, Serum 0.97 mg/dL (0.55-1.02); EST Glomerular Filtration Rate 58 mL/min (>60); Est Glom Filt Rate - Afr Amer 70 mL/min (>60); Estimated Creatinine Clearance 29.41 ml/min; Glucose 108 mg/dL (74-106); Potassium 3.6 mmol/L (3.5-5.1); Sodium Level 132 mmol/L (136-145)
[2023-11-07 07:53] VITALS: BP 142/92; PULSE 65; RESP 18; TEMP 36.4; O2SAT 95
[2023-11-07] MEDS: Acetaminophen 325 MG Tablet 650 MG PO ×2 (08:03→14:17)
[2023-11-07] MEDS: Pantoprazole Sodium 20 MG Tablet PO (08:04)
[2023-11-07] MEDS: Senna/Docusate Sodium 1 Tablet 2 TABLET PO (08:04)
[2023-11-07 08:05] VITALS: PULSE 65
[2023-11-07] MEDS: Aspirin 81 MG TAB.CHEW PO (08:05)
[2023-11-07] MEDS: Menthol/Lanolin/Calamine/Znox 113 GM Tube 1 APPLIC TOPICAL (08:05)
[2023-11-07] MEDS: Psyllium 1 PACKET PO (08:05)
[2023-11-07] MEDS: Metoprolol(XL)Succ 25 MG Tablet PO (08:05)
--- NOTE | 2023-11-07 11:30 | PN.HOSP_ITS ---
Subjective Subjective Was a little sleepy last night but otherwise condition is unchanged as she has Parkinson's dementia. She did have a dizziness episode overnight Objective Data Objective Data Vital Signs: Vital Signs Temp Pulse Resp BP Pulse Ox O2 Del Method O2 Flow Rate 97.6 F L 65 18 142/92 H 95 Room Air 4 11/07/23 07:53 11/07/23 08:05 11/07/23 07:53 11/07/23 07:53 11/07/23 07:53 11/07/23 07:53 11/05/23 07:43 Oxygen Flow Rate (L/min) 4 Oxygen Delivery Method Room Air Weight: 100 lb 8.493 oz Body Mass Index (BMI) 18.9 Intake & Output: Intake and Output for Last 24 Hours 11/06/23 11/07/23 11/08/23 03:59 03:59 03:59 Intake Total 200 / 200 150 / 150 200 / 200 Output Total 400 / 400 Balance -200 / -200 150 / 150 200 / 200 Lab / Micro Data 11/07/23 06:06 11/07/23 06:06 Labs: Laboratory Results - last 24 hr 11/07/23 06:06: WBC 18.7 H, RBC 3.56 L, Hgb 10.8 L, Hct 33.4 L, MCV 93.8, MCH 30.3, MCHC 32.3, RDW Std Deviation 47.9 H, RDW Coeff of [place] 14.0, Plt Count 262, MPV 10.8, Immature Gran % (Auto) 0.500, Neut % (Auto) 63.0, Lymph % (Auto) 23.0, [place] % (Auto) 12.0 H, Eos % (Auto) 0.4, Baso % (Auto) 1.1 H, Absolute Neuts (auto) 11.8 H, Absolute Lymphs (auto) 4.30, Nucleated RBC % 0, Differential Comment COMMENT, Diff Path Review October foll, Sodium 132 L, Potassium 3.6, Chloride 102, Carbon Dioxide 22.0, Anion Gap 8, BUN 22 H, Creatinine 0.97, Estim Creat Clear Calc 29.41, Est GFR (MDRD) Af Amer 70, Est GFR (MDRD) Non-Af 58 L, B UN/Creatinine Ratio 22.6 H, Glucose 108 H, Calcium 8.9 Physical Exam Narrative General: Alert, Oriented x1-2, Cooperative, No apparent distress HEENT: Atraumatic, PERRLA, EOMI, Normocephalic Oral: Moist Mucosa Neck: Supple, No JVD Lungs: Diminished, Normal air movement, No rhonchi, No wheeze, No rales Cardiovascular: Regular rate, Regular Rhythm, Normal S1, Normal S2, No murmurs Abdomen: Soft, Non Tender, Non-Distended, No Hepato-splenomegaly Extremities: No edema, Capillary Refill Less than 3 Seconds Skin: No rashes, No breakdown Musculoskeletal: Right upper extremity tenderness Neurological: No focal neurological deficits, Motor Exam 5/5 strength throughout, Sensory exam intact to light touch and pain Psych/Mental Status: Normal Affect, Appropriate Assessment & Plan Assessment/Plan (1) Closed fracture of proximal end of right humerus: (2) Closed head injury without concussion: (3) Accidental fall: PLAN: Plan #1. Adult FTT, General debility with mechanical fall w/ right shoulder impacted humeral neck fracture (given not displaced it is nonoperative) and closed head injury without concussion: [facility] floor. PT and OT. Supportive management. manager nursing to help with discharge. Pain controlled. Patient on stool softener as he is on opioid oxycodone. On right shoulder swath and sling. 11/05/2023: Stable for discharge to SNF when pre-CERT is obtained 11/06/2023: Awaiting pre-CERT 11/07/2023: She does appear to be at baseline and from my perspective is stable for discharge we do have pre-CERT. There was a slight bump in her chronic leukocytosis from her lymphoma so for completeness we will obtain a UA however this should not delay discharge as if it is positive can initiate antibiotics and and cultures could be followed up as an outpatient #2. Chart Reported Hx Valvular heart disease: Most recent echocardiogram noted 06/28/2023 with normal LV size, LV systolic function normal, EF 70%, structurally normal valves. Prior echocardiogram had noted mild MVI and trivial LEON. #3. Chronic Kidney Disease Stage III per GFR trending, unclear subtype: Admission BUN/Cr 26/1.16, GFR 47, baseline renal function 0.9-1.2. Creatinine slight improvement to 1.14. On baseline #4. Chronic normocytic anemia: Admission hemoglobin 10.7, MCV 94.1, baseline hemoglobin appears more recently 10-11 range 11/02: Repeat CBC shows H&H on baseline. 11/05/2023: Anemia stable we will continue to monitor here and as an outpatient #5. 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 Continue to strongly encourage patient to use her walker so that this does not recur or at least decreases her risk. Will have low-dose Seroquel if recurrent significant evening agitation onset. 11/07/2023: Was started on risperidone as this is less sedating however this medication was held last night because she was sleeping at night #6. History PAC/PVC: Will cautiously continue patient home metoprolol therapy given her significant chronic orthostasis history. #7. Hypertension: Will continue patient low-dose metoprolol regimen cautiously, PRN IV hydralazine. #8. Hyperlipidemia: We will continue patient on statin therapy. #9. Chronic orthostasis: We will continue patient home midodrine regimen 3 times daily, maintain on fall precautions. 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 #11. Lymphoma: Unclear specific type or diagnosis timeline, given presentation with lymphocytosis and the fact that patient does admit she sees Dr. Brooks [facility] oncology routinely suspect this is an ongoing health issue, encourage continued follow-up as previously arranged. 11/05/2023: Leukocytosis remained stable 11/07/2023: Leukocytosis remained stable and in line with her past history DVT: Heparin Charges/Coding Visit Charges Inpatient E&M: 03035 Subs Hosp L2
[2023-11-07 14:15] VITALS: BP 123/56; PULSE 79; RESP 16; TEMP 36.7; O2SAT 98
[2023-11-07] MEDS: AUTOLOGOUS SERUM EACH EYE (14:18)
[2023-11-07 14:20] LABS: Bacteria 0 SEEN /hpf (None Seen); Mucous, Urine 0 SEEN /hpf (<or=2+); Red Blood Cells-Urine 0 SEEN /hpf (0-5); Squamous Epithelial Cells - UA 0 SEEN /hpf (5-10); White Blood Cells 0 SEEN /hpf (0-5)
[2023-11-07 14:22] LABS: Color, Urine Yellow (Yellow); Glucose, Dipstick Normal (Normal); Ketone-Dipstick 5 mg/dl (Negative); Leukocyte Esterase-Dipstick 25 /ul (Negative); Nitrite-Dipstick Negative (Negative); Occult Blood-Urine Negative /ul (Negative); Protein-Dipstick 30 mg/dl (Negative); Specific Gravity, Urine 1.015 (1.002-1.030); Urine Bilirubin Dipstick Negative (Negative); Urine Clarity Clear (Clear); Urine Urobilinogen Normal (Normal)
--- NOTE | 2023-11-07 14:31 | CASEMGMT ---
Addendum entered by Estephania Partida 11/07/23 15:07: Social Work Per physician, pt is ready for discharge today. Discharge orders faxed to TCU. Phone call to pt's son and updated pt would dc today. Pt's son is agreeable. Nursing notified that pt can discharge to TCU today. Disposition: TCU, skilled level of care DANIEL Mahajan Original Note: Social Work Precert has been obtained for pt to go to TCU. Phone call to pt's son Lalo and information provided. Plan: TCU, when medically ready DANIEL Mahajan
--- NOTE | 2023-11-07 14:50 | PCM.TXEXTCAR ---
Diet Diet Order/Speech Therapy: 11/02/23 18:07 Diet: Regular - General Food consistency:: Regular Liquid Consistency:: Regular/Thin Type of Dietary Supplement:: Ensure Plus High Protein Diet Comments: EPHP w/ dinner (chocolate flavor) Routine Orders/Code Status Routine Lab Work: CBC and BMP Code Status: DNRCC-A Wound(s) lft grier: Wound Type: Abrasion Right knee: Wound Type: Abrasion buttocks: Wound Type: Pressure Injury right grier x2: Wound Type: Skin Tear Therapies Weight Bearing: Non weight bearing Extremity Affected:: Right Upper Physical Therapy: Eval and Treat Occupational Therapy: Eval and Treat Problem/Diagnosis (1) Closed fracture of proximal end of right humerus: Status: Acute Code(s): S42.201A - Unspecified fracture of upper end of right humerus, initial encounter for closed fracture (2) Closed head injury without concussion: Status: Acute Code(s): S09.90XA - Unspecified injury of head, initial encounter (3) Accidental fall: Status: Acute Code(s): W19.XXXA - Unspecified fall, initial encounter Plan #1. Adult FTT, General debility with mechanical fall w/ right shoulder impacted humeral neck fracture (given not displaced it is nonoperative) and closed head injury without concussion: Admitted on [facility] floor. PT and OT. Supportive management. brand marketing manager to help with discharge. Pain controlled. Patient on stool softener as he is on opioid oxycodone. On right shoulder swath and sling. 11/05/2023: Stable for discharge to SNF when pre-CERT is obtained 11/06/2023: Awaiting pre-CERT 11/07/2023: She does appear to be at baseline and from my perspective is stable for discharge we do have pre-CERT. There was a slight bump in her chronic leukocytosis from her lymphoma so for completeness we will obtain a UA however this should not delay discharge as if it is positive can initiate antibiotics and and cultures could be followed up as an outpatient #2. Chart Reported Hx Valvular heart disease: Most recent echocardiogram noted 06/28/2023 with normal LV size, LV systolic function normal, EF 70%, structurally normal valves. Prior echocardiogram had noted mild MVI and trivial LEON. #3. Chronic Kidney Disease Stage III per GFR trending, unclear subtype: Admission BUN/Cr 26/1.16, GFR 47, baseline renal function 0.9-1.2. Creatinine slight improvement to 1.14. On baseline #4. Chronic normocytic anemia: Admission hemoglobin 10.7, MCV 94.1, baseline hemoglobin appears more recently 10-11 range 11/02: Repeat CBC shows H&H on baseline. 11/05/2023: Anemia stable we will continue to monitor here and as an outpatient #5. 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 Continue to strongly encourage patient to use her walker so that this does not recur or at least decreases her risk. Will have low-dose Seroquel if recurrent significant evening agitation onset. 11/07/2023: Was started on risperidone as this is less sedating however this medication was held last night because she was sleeping at night #6. History PAC/PVC: Will cautiously continue patient home metoprolol therapy given her significant chronic orthostasis history. #7. Hypertension: Will continue patient low-dose metoprolol regimen cautiously, PRN IV hydralazine. #8. Hyperlipidemia: We will continue patient on statin therapy. #9. Chronic orthostasis: We will continue patient home midodrine regimen 3 times daily, maintain on fall precautions. 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 #11. Lymphoma: Unclear specific type or diagnosis timeline, given presentation with lymphocytosis and the fact that patient does admit she sees Dr. Brooks [facility] oncology routinely suspect this is an ongoing health issue, encourage continued follow-up as previously arranged. 11/05/2023: Leukocytosis remained stable 11/07/2023: Leukocytosis remained stable and in line with her past history DVT: Heparin Allergies/Procedures Done in Hospital Allergies Penicillins Allergy (Verified 09/19/23 14:35) Rash tramadol Adverse Reaction (Verified 09/19/23 14:35) Other upset stomach Type of Care/Length of Stay Estimated LOS: Convalescent Care Less Than 30 days Type of Care Needed: Skilled Rehab Potential: Good Prognosis: Good Additional Orders/Day of Discharge Day of Discharge: 11/07/23 Dietary and Speech Recommendations Dietitian Recommendations/Changes: Continue with Regular - General diet for liberalization. Will order Ensure Plus High Protein once daily with dinner to help increase oral intakes and prevent weight loss. Will continue to follow, monitor oral intakes and ONS tolerance, and modify interventions as needed. Discharge Plan Admission Admit Date/Time: 11/02/23 17:23 Attending Provider: Osiel Sims Primary Care Provider: Odalis Saravia Consulting Providers: Daisy Mack; Avel Massey Discharge Orders/Prescriptions Prescriptions: New risperidone 0.5 mg Tablet 0.5 mg PO QHS Qty: 0 0RF Continued carbidopa-levodopa 25-100 mg tablet 2 tab PO TID multivitamin tablet 1 tab PO DAILY atorvastatin 40 mg Tablet 40 mg PO QHS 30 Days Qty: 30 2RF aspirin 81 mg Tablet,Chewable 81 mg PO BREAKFAST 30 Days Qty: 30 3RF metoprolol succinate 25 mg Tablet Extended Release 24 Hr 25 mg PO DAILY 30 Days Qty: 30 0RF famotidine 40 mg tablet 40 mg PO DAILY cyanocobalamin (vitamin B-12) 1,000 mcg tablet, sublingual 1,000 mcg sublingual DAILY VITAL TEARS 1 drp ophthalmic (eye) TID Patient Comments: FAMILY STATES THAT PT USES EYE DROPS MADE AT [facility] THAT IS MADE WITH HER BLOOD. AFTER RESEARCH, EYE DROPS ARE CALLED VITAL EYES, OR AUTOLOGOUS SERUM. midodrine 5 mg Tablet 10 mg PO TIDCM Qty: 0 0RF Senna Plus 8.6-50 mg capsule 1 tab-cap PO DAILY PRN (Reason: constipation) ascorbic acid (vitamin C) 500 mg Tablet 500 mg PO DAILY Referrals / Follow Up: Odalis Saravia MD [Primary Care Provider] - Howard Zimmerman Chi, MD [Med Staff - Active Staff] - Disposition Disposition (needs filled in before D/C Order can be placed): [facility]
[2023-11-07 15:22] LABS: Pathologist Review Reviewed
--- NOTE | 2023-11-07 15:33 | NURSING ---
x2 attempts to call TCU to connect regarding nurse to nurse report but no answer, went to voicemail of some sort.
--- NOTE | 2023-11-07 15:55 | DS.PCM_ITS ---
Providers Date of Admission: 11/02/23 Primary Care Physician: Dr. Odalis Saravia MD Reason For Visit: FALL, ADULT FTT, RUE HUMERAL FX Diagnosis Discharge Diagnosis (1) Closed fracture of proximal end of right humerus: Status: Acute Code(s): S42.201A - Unspecified fracture of upper end of right humerus, initial encounter for closed fracture (2) Closed head injury without concussion: Status: Acute Code(s): S09.90XA - Unspecified injury of head, initial encounter (3) Accidental fall: Status: Acute Code(s): W19.XXXA - Unspecified fall, initial encounter Medications at Discharge Home Medications multivitamin 1 tab PO DAILY vitamin 11/20/18 carbidopa 25 mg-levodopa 100 mg tablet 2 tab PO TID parkinsons 01/05/23 aspirin 81 mg chewable tablet 81 mg PO BREAKFAST blood thinner 1 month #30 tabs 06/29/23 atorvastatin 40 mg tablet 40 mg PO QHS cholesterol 1 month #30 tabs 06/29/23 VITAL TEARS 1 drp ophthalmic (eye) TID DRY EYES 09/08/23 cyanocobalamin (vitamin B-12) 1,000 mcg sublingual tablet 1,000 mcg sublingual DAILY supplement 09/08/23 famotidine 40 mg tablet 40 mg PO DAILY reflux 09/08/23 midodrine 5 mg tablet 10 mg (2 x 5 mg) PO TIDCM blood pressure elavator #0 tabs 09/14/23 metoprolol succinate 25 mg tablet,extended release 24 hr 25 mg PO DAILY 30 days #30 tabs 10/03/23 ascorbic acid (vitamin C) 500 mg tablet 500 mg PO DAILY 11/02/23 sennosides 8.6 mg-docusate sodium 50 mg capsule (Senna Plus) 1 tab-cap PO DAILY PRN constipation 11/02/23 risperidone 0.5 mg tablet 0.5 mg PO QHS #0 tabs 11/07/23 Hospital Course Operations None Procedures None Summary of Care Provided Minutes Spent on Discharge: 36 Hospital Course: Per HPI: The patient is an 88 y/o F currently residing in Assisted living w/ PMHx: Chronic anemia, CKD stage III unclear subtype per GFR trending, Hx TIA, Parkinson's disease w/ underlying dementia component with behavioral disturbance history with agitation during admissions primarily in the evenings w/ frequent fall history, Hx Lymphoma, Hx Atrial myxoma, Valvular Heart Disease, Chronic orthostatis, HTN, HLD, Hx Parotid tumor, Hx PAC/PVC, recent discharge 09/14/2023 following syncope assessment with also noted unremarkable EEG and no cardiac arrhythmia with increase of her midodrine secondary to significant orthostatic hypotension to 10 mg p.o. 3 times daily and transition to skilled facility following who now represents to the [facility] ED on 11/02/23 with history of unfortunate mechanical fall attempting to walk without use of her walker when her toe caught the edge of something prompting her to fall onto her right shoulder and hit her head with no loss of consciousness nor any recent headache, nausea or emesis in addition to scraping her right knee with significant debility following prompting ED evaluation. She currently reports after pain medication the ED that her pain is completely controlled. Workup in the ED included T96.4, heart rate 49, BP 122/77, respiratory rate 20, CBC with WBC 16.3, hemoglobin 10.7, MCV 94.1, platelet 299 with lymphocytosis, BMP with sodium 135, BUN/creatinine 26/1.16, GFR 47, glucose 120, plain film of the right shoulder with an impacted humeral neck fracture, CT of the brain with chronic involutional changes. In the ED patient administered 25 mcg fentanyl IV x 1 as well as Zofran 4 mg IV x 1. Hospital Course: #1. Adult FTT, General debility with mechanical fall w/ right shoulder impacted humeral neck fracture (given not displaced it is nonoperative) and closed head injury without concussion: Admitted on MedSurg floor. PT and OT. Supportive management. project management manager to help with discharge. Pain controlled. Patient on stool softener as he is on opioid oxycodone. On right shoulder swath and sling. 11/05/2023: Stable for discharge to SNF when pre-CERT is obtained 11/06/2023: Awaiting pre-CERT 11/07/2023: She does appear to be at baseline and from my perspective is stable for discharge we do have pre-CERT. There was a slight bump in her chronic leukocytosis from her lymphoma so UA was obtained which was negative for UTI. This afternoon she was sitting in the bedside chair reading a newspaper time to her son. Will plan for discharge to SNF today to start her physical therapy #2. Chart Reported Hx Valvular heart disease: Most recent echocardiogram noted 06/28/2023 with normal LV size, LV systolic function normal, EF 70%, structurally normal valves. Prior echocardiogram had noted mild MVI and trivial LEON. #3. Chronic Kidney Disease Stage III per GFR trending, unclear subtype: Admission BUN/Cr 26/1.16, GFR 47, baseline renal function 0.9-1.2. Creatinine slight improvement to 1.14. On baseline #4. Chronic normocytic anemia: Admission hemoglobin 10.7, MCV 94.1, baseline hemoglobin appears more recently 10-11 range 11/02: Repeat CBC shows H&H on baseline. 11/05/2023: Anemia stable we will continue to monitor here and as an outpatient #5. 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 Continue to strongly encourage patient to use her walker so that this does not recur or at least decreases her risk. Will have low-dose Seroquel if recurrent significant evening agitation onset. 11/07/2023: Was started on risperidone as this is less sedating however this medication was held last night because she was sleeping #6. History PAC/PVC: Will cautiously continue patient home metoprolol therapy given her significant chronic orthostasis history. #7. Hypertension: Will continue patient low-dose metoprolol regimen cautiously, PRN IV hydralazine. #8. Hyperlipidemia: We will continue patient on statin therapy. #9. Chronic orthostasis: We will continue patient home midodrine regimen 3 times daily, maintain on fall precautions. 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 #11. Lymphoma: Unclear specific type or diagnosis timeline, given presentation with lymphocytosis and the fact that patient does admit she sees Dr. Brooks [facility] oncology routinely suspect this is an ongoing health issue, encourage continued follow-up as previously arranged. 11/05/2023: Leukocytosis remained stable 11/07/2023: Leukocytosis remained stable and in line with her past history Physical Exam Narrative General: Alert, Oriented x1-2, Cooperative, No apparent distress HEENT: Atraumatic, PERRLA, EOMI, Normocephalic Oral: Moist Mucosa Neck: Supple, No JVD Lungs: Diminished, Normal air movement, No rhonchi, No wheeze, No rales Cardiovascular: Regular rate, Regular Rhythm, Normal S1, Normal S2, No murmurs Abdomen: Soft, Non Tender, Non-Distended, No Hepato-splenomegaly Extremities: No edema, Capillary Refill Less than 3 Seconds Skin: No rashes, No breakdown Musculoskeletal: Right upper extremity tenderness Neurological: No focal neurological deficits, Motor Exam 5/5 strength throughout, Sensory exam intact to light touch and pain Psych/Mental Status: Normal Affect, Appropriate Weight / BMI Weight Weight: 100 lb 8.493 oz Body Mass Index (BMI) 18.9 ABG / Lab / Microbiology Data 11/07/23 06:06 11/07/23 06:06 Laboratory: Laboratory Results - last 24 hr 11/07/23 06:06: WBC 18.7 H, RBC 3.56 L, Hgb 10.8 L, Hct 33.4 L, MCV 93.8, MCH 30.3, MCHC 32.3, RDW Std Deviation 47.9 H, RDW Coeff of [place] 14.0, Plt Count 262, MPV 10.8, Immature Gran % (Auto) 0.500, Neut % (Auto) 63.0, Lymph % (Auto) 23.0, [place] % (Auto) 12.0 H, Eos % (Auto) 0.4, Baso % (Auto) 1.1 H, Absolute Neuts (auto) 11.8 H, Absolute Lymphs (auto) 4.30, Nucleated RBC % 0, Differential Comment COMMENT, Diff Path Review Reviewed, Sodium 132 L, Potassium 3.6, Chloride 102, Carbon Dioxide 22.0, Anion Gap 8, BUN 22 H, Creatinine 0.97, Estim Creat Clear Calc 29.41, Est GFR (MDRD) Af Amer 70, Est GFR (MDRD) Non-Af 58 L, B UN/Creatinine Ratio 22.6 H, Glucose 108 H, Calcium 8.9 11/07/23 13:50: Urine Color Yellow, Urine Clarity Clear, Urine pH 6.0, Ur Specific [place] 1.015, Urine Protein 30 H, Urine Glucose (UA) Normal, Urine Ketones 5 H, Urine Occult Blood Negative, Urine Nitrite Negative, Urine Bilirubin Negative, Urine Urobilinogen Normal, Ur Leukocyte Esterase 25 H, Urine RBC 0 SEEN, Urine WBC 0 SEEN, Ur Squamous Epith Cells 0 SEEN, Urine Bacteria 0 SEEN, Urine Mucus 0 SEEN Meaningful Use Info Meaningful Use Meaningful Use Diagnoses (Choose all that apply): None applicable Ischemic Stroke Statin Dosing Therapy Reference: STATIN DOSE THERAPY REFERENCE: * Patients > 75 years receive moderate or high dose statin therapy. * Patients 75 years or YOUNGER should receive HIGH intensity statin dose unless contraindicated. You will be required to document reason for non-treatment if statin daily dose does not meet guidelines. HIGH DOSE STATIN THERAPY DAILY Atorvastatin > than or = to 40 mg Rosuvastatin > than or = to 20 mg Amlodipine + Atorvastatin > than or = to 2.5/40 mg Ezetimibe + Simvastatin 10/80 mg Simvastatin 80mg Discharge Plan Admission Admit Date/Time: 11/02/23 17:23 Attending Provider: Osiel Sims Primary Care Provider: Odalis Saravia Consulting Providers: Daisy Mack; Avel Massey Discharge Orders/Prescriptions Prescriptions: New risperidone 0.5 mg Tablet 0.5 mg PO QHS Qty: 0 0RF Continued carbidopa-levodopa 25-100 mg tablet 2 tab PO TID multivitamin tablet 1 tab PO DAILY atorvastatin 40 mg Tablet 40 mg PO QHS 30 Days Qty: 30 2RF aspirin 81 mg Tablet,Chewable 81 mg PO BREAKFAST 30 Days Qty: 30 3RF metoprolol succinate 25 mg Tablet Extended Release 24 Hr 25 mg PO DAILY 30 Days Qty: 30 0RF famotidine 40 mg tablet 40 mg PO DAILY cyanocobalamin (vitamin B-12) 1,000 mcg tablet, sublingual 1,000 mcg sublingual DAILY VITAL TEARS 1 drp ophthalmic (eye) TID Patient Comments: FAMILY STATES THAT PT USES EYE DROPS MADE AT [facility] THAT IS MADE WITH HER BLOOD. AFTER RESEARCH, EYE DROPS ARE CALLED VITAL EYES, OR AUTOLOGOUS SERUM. midodrine 5 mg Tablet 10 mg PO TIDCM Qty: 0 0RF Senna Plus 8.6-50 mg capsule 1 tab-cap PO DAILY PRN (Reason: constipation) ascorbic acid (vitamin C) 500 mg Tablet 500 mg PO DAILY Referrals / Follow Up: Odalis Saravia MD [Primary Care Provider] - Howard Zimmerman Chi, MD [Med Staff - Active Staff] - Disposition Disposition (needs filled in before D/C Order can be placed): Senior Living Facility Charges/Coding Visit Charges Inpatient E&M: 54966 Disch Hosp >30min
== END 2023-11-07 17:45 | disposition skilled nursing facility (03) | DRG 563 ==
LOC: ED 17:23 → MS3 17:44
PROVIDERS: Internal Medicine; Admitting Provider Family Medicine; Emergency Provider Emergency Medicine; PCP Internal Medicine; Visit Provider Family Medicine
DX: S42.291A Other displaced fracture of upper end of right humerus, initial encounter for closed fracture (principal); C85.90 Non-Hodgkin lymphoma, unspecified, unspecified site; G20.A1 Parkinson's disease without dyskinesia, without mention of fluctuations; F02.811 Dementia in other diseases classified elsewhere, unspecified severity, with agitation; N18.30 Chronic kidney disease, stage 3 unspecified; D64.9 Anemia, unspecified; S09.90XA Unspecified injury of head, initial encounter; I12.9 Hypertensive chronic kidney disease with stage 1 through stage 4 chronic kidney disease, or unspecified chronic kidney disease; E78.5 Hyperlipidemia, unspecified; I95.1 Orthostatic hypotension; W19.XXXA Unspecified fall, initial encounter; R62.7 Adult failure to thrive; Z66 Do not resuscitate; Z79.82 Long term (current) use of aspirin; R53.81 Other malaise; Z86.73 Personal history of transient ischemic attack (TIA), and cerebral infarction without residual deficits; R29.6 Repeated falls; Z68.1 Body mass index [BMI] 19.9 or less, adult; Z79.899 Other long term (current) drug therapy; S05.41XA Penetrating wound of orbit with or without foreign body, right eye, initial encounter; S80.211A Abrasion, right knee, initial encounter
CPT/HCPCS: 12011; 36415; 70450; 73030; 80048; 80053; 81001; 82962; 85025; 87086; 94668; 96361; 96372; 96374; 96375; 97162; 97166; 97530; 97535; 97802; 99221; 99283; A4216; G0378; J2405

== ENCOUNTER 2023-11-07 17:57 | Inpatient (IN) | payer MEDICARE, SELFPAY ==
[2023-11-07 18:04] VITALS: BP 95/60; PULSE 88; RESP 16; TEMP 36.8; O2SAT 95; BMI 18.5
[2023-11-07 18:22] VITALS: BMI 18.5
--- NOTE | 2023-11-07 20:15 | HP.PCM_ITS ---
HPI - General General Date of Admission: 11/07/23 Date of Service: 11/07/23 Chief Complaint: Here for rehabilitation. HPI Narrative 11/02/2023 ADDIS CARRENO, is a 88 Female who presents to [facility] ED with fall. Walking with walker, tripped, fell, hurt right shoulder. Hit head, no LOC, scraped right knee. X-ray showed right proximal humerus fracture, sling applied, non-operative. CT head negative. Fentanyl, Zofran given. 11/02/2023 Admit [facility]. PT/OT for debility. 11/03/2023 Creatinine improved to baseline. Low dose Seroquel for nighttime agitation from Parkinson's Dementia. 11/04/2023 Drowsy, lethargic, somnolent, BP 72/43, repeat BP 118/60. Normal saline 500cc iv bolus ordered. CT head negative, maintenance IV fluids. Already on Midodrine 10mg tid chronically. 11/05/2023 Doing well. Pre-CERT SNF. 11/06/2023 Doing well, slept well. Await Pre-CERT for SNF. 11/07/2023 Slept well last night. Risperidone for nighttime agitation 2/2 Parkinson's Dementia. UA negative for elevated WBC. 11/07/2023 Admit to TCU with debility, here for rehabilitation, strengthening, prior to discharge to [facility] Medical History (Updated 11/07/23 @ 20:[address] Howard Zimmerman MD) Falls Parkinson's disease CKD (chronic kidney disease), stage III Anemia Brain TIA Parotid tumor Lymphoma Parkinsons disease Premature ventricular contraction Hypertension Premature atrial contractions Hyperlipidemia History of atrial myxoma Nonrheumatic tricuspid valve regurgitation Nonrheumatic mitral valve regurgitation Nonrheumatic mitral (valve) prolapse Home Medications ?Medication ?Instructions ?Recorded ?Last Taken ?Type multivitamin 1 tab PO DAILY vitamin 11/20/18 11/02/23 History carbidopa 25 mg-levodopa 100 mg 2 tab PO TID parkinsons 01/05/23 11/02/23 History tablet aspirin 81 mg chewable tablet 81 mg PO BREAKFAST blood thinner 1 06/29/23 11/02/23 Rx month #30 tabs atorvastatin 40 mg tablet 40 mg PO QHS cholesterol 1 month 06/29/23 11/01/23 Rx #30 tabs VITAL TEARS 1 drp ophthalmic (eye) TID DRY EYES 09/08/23 11/02/23 History cyanocobalamin (vitamin B-12) 1,000 mcg sublingual DAILY 09/08/23 11/02/23 History 1,000 mcg sublingual tablet supplement famotidine 40 mg tablet 40 mg PO DAILY reflux 09/08/23 11/02/23 History midodrine 5 mg tablet 10 mg (2 x 5 mg) PO TIDCM blood 09/14/23 11/02/23 Rx pressure elavator #0 tabs metoprolol succinate 25 mg 25 mg PO DAILY BP 30 days #30 tabs 10/03/23 11/02/23 Rx tablet,extended release 24 hr ascorbic acid (vitamin C) 500 mg 500 mg PO DAILY health maintenence 11/02/23 11/02/23 History tablet sennosides 8.6 mg-docusate sodium 1 tab-cap PO DAILY PRN constipation 11/02/23 11/02/23 History 50 mg capsule (Senna Plus) risperidone 0.5 mg tablet 0.5 mg PO QHS behaviors #0 tabs 11/07/23 Unknown Rx Allergy/AdvReac Type Severity Reaction Status Date / Time Penicillins Allergy Rash Verified 09/19/23 14:35 tramadol AdvReac Other Verified 09/19/23 14:35 Family History Father Heart disease CHF (congestive heart failure) Mother No problems noted. Surgical History History of facial surgery History of splenectomy History of laparoscopic cholecystectomy Social History household members: none housing: assisted living facility Smoking Status: Never smoker alcohol intake: current details: occasional substance use type: does not use ROS Constitutional Constitutional: Reports fatigue and weakness; Denies chills, fever(s) or weight gain ENT HEENT: Denies headache(s), nasal congestion or nasal discharge Cardiovascular Cardiovascular: Denies chest pain or palpitations Respiratory/Chest Respiratory/Chest: Denies cough, excessive phlegm production or shortness of breath with exertion Gastrointestinal Gastrointestinal: Denies abdominal pain, nausea or vomiting Genitourinary Genitourinary: Denies dysuria Musculoskeletal Musculoskeletal: Denies joint pain or joint swelling Integumentary Integumentary: Denies rash or wounds Neurologic Neurologic: Denies focal weakness, numbness or tingling Psychiatric Psychiatric: Denies anxiety, auditory hallucinations, depression, homicidal ideation or suicidal ideation Vital Signs Vital Signs Vital Signs: 11/07/23 18:04 Temperature 98.2 F Temperature Source Temporal Pulse Rate 88 Respiratory Rate 16 Blood Pressure 95/60 Blood Pressure Mean 71 Blood Pressure Source Monitor Blood Pressure Position Semi-Fowlers Blood Pressure Location Left Arm Pulse Ox 95 Oxygen Delivery Method Room Air Weight Weight: 44.543 kg Body Mass Index (BMI) 18.5 Physical Exam Const alert General Appearance: cooperative HEENT normocephalic Eyes PERRL and EOMs intact bilaterally Neck supple, no JVD and no carotid bruits Resp normal respiratory effort, normal air movement and clear to auscultation bilaterally Cardio regular rate and regular rhythm GI normal to inspection, nondistended, normoactive bowel sounds, non-tender and non-distended Extremity normal capillary refill Extremity Narrative: Right upper extremity sling. General Extremity: Negative for edema Skin no rashes or lesions noted General Skin Exam: no breakdown Psych affect normal Appearance: appropriate Assessment & Plan Assessment/Plan (1) Debility: (2) Falls: (3) Closed fracture of proximal end of right humerus: (4) Closed head injury without concussion: (5) Brain TIA: (6) Orthostatic hypotension: (7) Essential hypertension: (8) Parkinson's disease: (9) Parkinson's disease dementia: (10) GERD (gastroesophageal reflux disease): (11) Vitamin C deficiency: (12) Vitamin B12 deficiency: PLAN: Plan 88 year old female with below past medical history hospitalized for fall, right proximal humerus fracture, complicated by DONY, orthostatic hypotension, Agitation related to Parkinson's Dementia, admitted to TCU with debility, here for rehabilitation, strengthening, prior to discharge home to [facility]. * Debility - PT/OT. * Pain - Tylenol 1000mg q6 prn pain (1-10). * Bowel - senna/colace 1 tablet daily prn. * Adult immunization - Administer pneumonia vaccine, covid vaccine, flu vaccine as appropriate. * DVT prophylaxis - Monitor. * Vitamin C deficiency - Vitamin C 500mg daily. * TIA - Aspirin 81mg daily. * Hyperlipidemia - Atorvastatin 40mg qhs. * Parkinson Disease - Sinemet 25/100mg 2 tablets tid. * Vitamin B12 deficiency - B12 1000mcg daily. * GERD - Famotidine 40mg daily. * Hypertension - Metoprolol succinate 25mg daily. * Orthostatic hypotension - Midodrine 10mg tid. * Nutrition - MVI 1 tablet daily. * Agitation 2/2 Parkinson's Dementia - Risperdal 0.5mg qhs x 7 days, then 0.25mg qhs x 7 days, then stop (GDR). * Dry Eyes - Vital 1 gtt TID (eye drops made from patient's blood).
[2023-11-07] MEDS: RisperiDONE 0.5 MG Tablet PO (21:20)
[2023-11-07] MEDS: Atorvastatin Calcium 40 MG Tablet PO (21:20)
--- NOTE | 2023-11-07 21:27 | NURSING ---
This nurse gave patient her HS medications, patient stated, here I'll give you this and raised her fist up at this nurse and stated she wanted to punch this nurse because she had to go to the bathroom right now. This nurse put patient on bedpan. Patient did not void.
[2023-11-07] MEDS: [UNRECOGNIZED DRUG - OTHER] 1 EACH EYE (21:33)
[2023-11-08] MEDS: [UNRECOGNIZED DRUG - OTHER] 1 EACH EYE ×3 (05:40→20:15)
[2023-11-08] MEDS: Carbidopa/Levodopa 25/100 Tablet PO ×3 (05:40→16:49)
[2023-11-08 07:28] LABS: Absolute Lymphocyte Count 5.25 X10^3/uL (0.83-4.51); Absolute Neutrophil Count 8.9 X10^3/uL (2.0-7.7); Basophil# 0.26 X10^3/uL; Basophil% 1.5 % (0-1); Eosinophil# 0.06 X10^3/uL; Eosinophils% 0.4 % (0-5); Hematocrit 30.1 % (37-47); Hemoglobin 10.1 g/dL (12.0-15.0); Lymphocyte # 5.25 X10^3/ul (0.83-4.51); Lymphocyte % 30.8 % (19-41); Mean Corp Hgb Conc 33.6 g/dL (32-36); Mean Corpuscular Hgb 30.3 pg (27.0-32.0); Mean Corpuscular Volume 90.4 fL (81-99); Mean Platelet Vol. 9.6 fl (6.2-12.0); Monocyte# 2.45 X10^3/uL; Monocyte% 14.4 % (0-10); NRBC Flagged by Analyzer 0 % (0-5); Neutrophil # 8.92 X10^3/uL (2.7-7.7); Neutrophil % 52.4 % (47-70); POSITIVE DIFFERENTIAL YES; Platelet Count 296 K/mm3 (150-450); Red Blood Count 3.33 M/mm3 (4.2-5.4)
[2023-11-08 07:35] LABS: Differential Indicated SCAN CRITERIA MET
[2023-11-08 08:04] LABS: Anion Gap 8 (5-15); BUN 24 mg/dL (7-18); BUN/Creat Ratio 24.9 RATIO (10-20); Calcium,Total 8.6 mg/dL (8.5-10.1); Chloride 103 mmol/L (98-107); Creatinine, Serum 0.96 mg/dL (0.55-1.02); EST Glomerular Filtration Rate 58 mL/min (>60); Est Glom Filt Rate - Afr Amer 70 mL/min (>60); Estimated Creatinine Clearance 29.03 ml/min; Glucose 104 mg/dL (74-106); Potassium 3.5 mmol/L (3.5-5.1); Sodium Level 134 mmol/L (136-145)
--- NOTE | 2023-11-08 08:45 | NURSING ---
Addendum entered by Evgeny Zabala 11/08/23 12:17: Patient returned to unit at this time. Addendum entered by Evgeny Zabala 11/08/23 11:52: Report received from ER nurse. Addendum entered by Evgeny Zabala 11/08/23 10:26: Patient exited the unit @0910 to go to ER. Addendum entered by Evgeny Zabala 11/08/23 09:29: Call placed to Gonzalez patient's son with update. Original Note: Patient having hallucinations, confusion, and combative with staff. PT/OT approached nursing with concerns. Upon assessment patient drowsy/lethargic. Unable to follow commands. Unable to obtain BP. BGT 106. PARIMUTUEL TICKET CASHIER called @0850 due to condition change. Patient's gait is concerning to therapy. Patient leaning to her left. Baseline unknown. Last known well unknown. Order obtained from to send to ER for evaluation. Report called to nurse Lees.
[2023-11-08 09:04] LABS: Bedside Glucose 106 mg/dL (74-106)
--- NOTE | 2023-11-08 09:25 | NURSING ---
Updated Son Lalo that patient sent to ER. He said Romina (caregiver) had updated him and he was on his way to the ER.
[2023-11-08 09:33] LABS: Differential Comment SCANNED
[2023-11-08 12:24] VITALS: BP 117/74; PULSE 77; RESP 16; TEMP 37; O2SAT 96
[2023-11-08] MEDS: Menthol/Lanolin/Calamine/Znox 113 GM Tube 1 APPLIC TOPICAL ×2 (12:30→20:10)
[2023-11-08] MEDS: Multivitamins,Therapeutic Tablet 1 TABLET PO (12:30)
[2023-11-08] MEDS: Famotidine 20 MG Tablet 40 MG PO (12:30)
[2023-11-08] MEDS: Aspirin 81 MG TAB.CHEW PO (12:30)
[2023-11-08 12:31] VITALS: PULSE 77
[2023-11-08] MEDS: Metoprolol(XL)Succ 25 MG Tablet PO (12:31)
[2023-11-08] MEDS: Midodrine HCl 5 MG Tablet 10 MG PO ×2 (12:31→16:49)
[2023-11-08] MEDS: Cyanocobalamin 500 MCG Tablet 1000 MCG PO (12:31)
[2023-11-08] MEDS: Ascorbic Acid 500 MG Tablet PO (12:31)
[2023-11-08] MEDS: Tuberculin,Purif.prot.deriv. 50 TU/ML Vial 0.1 ML ID (12:38)
--- NOTE | 2023-11-08 14:50 | CHAPLAIN ---
Type of Pastoral Visit ___ Initial Visit _x__ Follow-up Visit ___ On-call Visit ___ General Patient Visit ___ Spiritual Assessment ___ Family Conference ___ Bereavement ___ Rapid Response ___ Code Blue ___ Other (describe below) Pastoral Care Referral From ___ Patient _x__ Family ___ Nurse ___ Physician ___ Production Administrative Assistant ___ Raise Miner ___ Other (describe below) Sacrament/Intervention _x__ Active listening ___ Anointing ___ Amish ___ Bereavement ___ Communion ___ Karly exploration ___ ___ Life review ___ Prayer ___ Reconciliation ___ Sacrament of Sick _x__ Supportive presence ___ Wedding ___ Other (describe below) Pastoral Comments patient was back in her room in TCU after a visit to the ED this morning; pt was lying down in bed and awake; greeted patient who did not acknowledge or look at this wire tester at first; coming close to patient she then looked at this wire tester; offer of helpful visit and presence was given; pt mumbled some words; this wire tester spoke about the day so far and that memorial day is coming; pt responded to that about an annual event and now I won't be able to do that this year; pt speaks some clear words and thoughts and then also mumbles and speaks on various topics without clear understanding; pt at times reaches out for something or looks at distant parts of the room as if watching something; asked about these moments and pt is unclear about their meaning; pt tries to sit up in bed and asks if this wire tester will turn that fan off; this wire tester wraps up blankets around patient and she is more content; upon leaving the patient stated Oh well, I'll survive;
[2023-11-08 16:42] VITALS: BP 104/48; PULSE 87
--- NOTE | 2023-11-08 17:01 | PCM.PN.DRR ---
TCU RX Drug Regimen Review Subjective/Objective Subjective/Objective: Subjective: TCU Admission. 88 YOF presented to the ER with a fall. Hospitalized for fall, right proximal humerus fracture, complicated by DONY, orthostatic hypotension, Agitation related to Parkinson's Dementia. Admitted to TCU with debility for strengthening and rehabilitation. Objective: Allergies Penicillins Allergy (Verified 11/08/23 09:57) Rash tramadol Adverse Reaction (Verified 11/08/23 09:57) Other upset stomach Current Medications Generic Name Dose Route Start Last Admin Trade Name Freq PRN Reason Stop Dose Admin Acetaminophen 1,000 mg 11/07/23 20:28 Acetaminophen 500 Mg Tablet PO Q6H PRN PRN Pain Score 1-10 Ascorbic Acid 500 mg 11/08/23 10:00 11/08/23 12:31 Ascorbic Acid 500 Mg Tablet PO 500 mg DAILY ARIA Administration Aspirin 81 mg 11/08/23 08:00 11/08/23 12:30 Aspirin 81 Mg Tab.Chew PO 81 mg BREAKFAST ARIA Administration Atorvastatin Calcium 40 mg 11/07/23 22:00 11/07/23 21:20 Atorvastatin Calcium 40 Mg Tablet PO 40 mg QHS ARIA Administration Calamine/Phenol 1 applic 11/08/23 10:00 11/08/23 12:30 Menthol/Lanolin/Calamine/Znox 113 Gm Tube TOPICAL 1 applic BID ARIA Administration Protocol Carbidopa/Levodopa 2 tablet 11/08/23 06:45 11/08/23 16:49 Carbidopa/Levodopa 25/100 Tablet PO 2 tablet TIDAC ARIA Administration Cyanocobalamin 1,000 mcg 11/08/23 10:00 11/08/23 12:31 Cyanocobalamin 500 Mcg Tablet PO 1,000 mcg DAILY ARIA Administration Famotidine 20 mg 11/09/23 10:00 Famotidine 20 Mg Tablet PO DAILY ARIA Metoprolol Succinate 25 mg 11/08/23 10:00 11/08/23 12:31 Metoprolol(Xl)Succ 25 Mg Tablet PO 25 mg DAILY ARIA Administration Protocol Midodrine 10 mg 11/08/23 07:45 11/08/23 16:49 Midodrine Hcl 5 Mg Tablet PO 10 mg TIDCM ARIA Administration Multivitamins 1 tablet 11/08/23 08:00 11/08/23 12:30 Multivitamins,Therapeutic Tablet PO 1 tablet DAILYCM ARIA Administration Non-Formulary ( 1 drp 11/07/23 22:00 11/08/23 15:30 Autologous Serum Eye EACH EYE 1 drp Drops Solution) TID ARIA Administration Risperidone 0.5 mg 11/07/23 22:00 11/07/23 21:20 Risperidone 0.5 Mg Tablet PO 11/14/23 22:01 0.5 mg QHS ARIA Administration Protocol Risperidone 0.25 mg 11/14/23 22:00 Risperidone 0.25 Mg Tablet PO 11/21/23 22:01 QHS ARIA Protocol Senna/Docusate Sodium 1 tablet 11/07/23 18:27 Senna/Docusate Sodium 1 Tablet PO DAILY PRN constipation Sodium Chloride 10 - 40 ml 11/07/23 18:14 0.9% Saline Lock 10 Ml Syringe IV UD PRN SALINE FLUSH Tuberculin PPD 0.1 ml 11/15/23 10:00 Tuberculin,Purif.Prot.Deriv. 50 Tu/Ml Vial ID 11/15/23 10:01 X1 ONE Problem List Vitamin B12 deficiency (Acute) Vitamin C deficiency (Acute) Parkinson's disease dementia (Acute) Parkinson's disease (Acute) Falls (Acute) Closed head injury without concussion (Acute) Closed fracture of proximal end of right humerus (Acute) GERD (gastroesophageal reflux disease) (Acute) Orthostatic hypotension (Acute) Brain TIA (Acute) Debility (Acute) Essential hypertension (Chronic) Vital Signs Temp Pulse Resp BP Pulse Ox O2 Del Method 98.6 F 87 16 104/48 L 96 Room Air 11/08/23 12:24 11/08/23 16:42 11/08/23 12:24 11/08/23 16:42 11/08/23 12:24 11/08/23 14:38 Oxygen Delivery Method Room Air Weight: 44.543 kg Body Mass Index (BMI) 18.5 Sodium 134 mmol/L (136-145) L 11/08/23 07:10 Potassium 3.5 mmol/L (3.5-5.1) 11/08/23 07:10 Chloride 103 mmol/L (98-107) 11/08/23 07:10 Carbon Dioxide 23.0 mmol/L (21.0-32.0) 11/08/23 07:10 Anion Gap 8 (5-15) 11/08/23 07:10 BUN 24 mg/dL (7-18) H 11/08/23 07:10 Creatinine 0.96 mg/dL (0.55-1.02) 11/08/23 07:10 Est GFR (MDRD) Af Amer 70 mL/min (>60) 11/08/23 07:10 Est GFR (MDRD) Non-Af 58 mL/min (>60) L 11/08/23 07:10 BUN/Creatinine Ratio 24.9 RATIO (10-20) H 11/08/23 07:10 Glucose 104 mg/dL (74-106) 11/08/23 07:10 Assessment/Plan: 1. Pain: acetaminophen 1000mg PO Q6H PRN pain 1-10. Resident hasn't had any PRN doses. Please continue to monitor for increased pain and PRN usage. 2. Bowel: senna/docusate 1T PO daily PRN constipation. Resident has not had any PRN doses. Please continue to monitor for constipation and PRN usage. Last documented bowel movement was today. 3. TIA: aspirin 81mg PO daily. Please continue to monitor for S/S of bleeding/stroke and hemoglobin (last 10.1g/dL). 4. Hyperlipidemia: atorvastatin 40mg PO QHS. Please continue to monitor lipid panel (last 10/05/23), LFTs (last 11/03/23) and muscle pain. 5. Hypertension: metoprolol succinate 25mg PO daily. Please continue to monitor BP (last 104/48) and HR (last 87). 6. Orthostatic hypotension: midodrine 10mg PO TID. Please continue to monitor BP (last 104/48). 7. GERD: famotidine 20mg PO daily (dose reduced for renal function). Please continue to monitor for S/S of GERD and renal function. 8. Parkinson disease: Sinemet 25/100mg 2T PO BID. Please monitor for nausea/vomiting/GI upset. Monitor for psychiatric symptoms and Parkinsons symptoms. Please encourage non-pharmacologic therapies use of cane and/or walker for walking stability. 9. Dry eyes: VItal 1gtt OU TID (eye drops made from patient's blood). Please continue to monitor for dry eyes. 10. Vitamin C/B12 deficiencies and overall nutrition: ascorbic acid 500mg PO daily, cyanocobalamin 1000mcg PO daily and multiivtamin 1T PO daily. Please continue to monitor B12 (last 10/05/23). Assessment/Plan for indications treated with psychotropic medications: 1. Agitation 2/2 Parkinson's diease: risperidone 0.5mg PO QHS x 7 days, then 0.25mg PO QHS x7 days then stop. Currently on GDR. Please continue to monitor for dementia/delirium (BEERs), falls/fracutres (BEERs) and cardiac events (BEERs). Medical chart and medication regimen reviewed. The following medication irregularities or issues were identified: None Date Date of Note:: 11/08/23
[2023-11-08] MEDS: Atorvastatin Calcium 40 MG Tablet PO (20:11)
[2023-11-09] MEDS: [UNRECOGNIZED DRUG - OTHER] 1 EACH EYE ×3 (05:28→21:18)
[2023-11-09] MEDS: Carbidopa/Levodopa 25/100 Tablet PO ×3 (05:28→17:19)
--- NOTE | 2023-11-09 08:43 | NS ---
MST score = 1
[2023-11-09] MEDS: Menthol/Lanolin/Calamine/Znox 113 GM Tube 1 APPLIC TOPICAL ×2 (08:45→21:15)
[2023-11-09] MEDS: Aspirin 81 MG TAB.CHEW PO (08:45)
[2023-11-09] MEDS: Multivitamins,Therapeutic Tablet 1 TABLET PO (08:45)
[2023-11-09] MEDS: Midodrine HCl 5 MG Tablet 10 MG PO ×3 (08:45→17:19)
[2023-11-09 08:46] VITALS: BP 124/79; PULSE 87
[2023-11-09] MEDS: Metoprolol(XL)Succ 25 MG Tablet PO (08:46)
[2023-11-09] MEDS: Famotidine 20 MG Tablet PO (08:46)
[2023-11-09] MEDS: Cyanocobalamin 500 MCG Tablet 1000 MCG PO (08:46)
[2023-11-09] MEDS: Ascorbic Acid 500 MG Tablet PO (08:51)
[2023-11-09 09:35] LABS: Pathologist Review Reviewed
[2023-11-09 10:00] VITALS: O2SAT 97
[2023-11-09] MEDS: Acetaminophen 500 MG Tablet 1000 MG PO (10:50)
[2023-11-09] MEDS: 0.9% Saline Lock 10 ML Syringe IV (13:18)
--- NOTE | 2023-11-09 15:32 | PCM.PROGNOTE ---
Subjective Subjective Afebrile Vital signs are stable Heart rate is within normal limits Maintaining appropriate oxygen saturation on room air Much more alert today. She is smiling and appropriate. She did well with therapy today and was able to ambulate 30ft with a HW. TCU staff tell me that she almost back to her baseline. Still having some visual hallucinations. She knows why she is in the hospital and she knows where she is. She is able to follow commands today. Having trouble with her arm staying in the sling......it is frequently hanging down and there is increased swelling in the RUE/hand. Marked ecchymosis of the hand today. 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 Has intact sensation. Objective Data Objective Data Vital Signs: Vital Signs Temp Pulse Resp BP Pulse Ox O2 Del Method 98.6 F 87 16 124/79 H 97 Room Air 11/08/23 12:24 11/09/23 08:46 11/08/23 12:24 11/09/23 08:46 11/09/23 10:00 11/09/23 10:00 Oxygen Delivery Method Room Air Weight: 98 lb 3.2 oz Body Mass Index (BMI) 18.5 Intake & Output: Intake and Output for Last 24 Hours 11/07/23 11/08/23 11/09/23 23:59 23:59 23:59 Intake Total 120 / 120 600 / 600 Balance 120 / 120 600 / 600 Lab / Micro Data 11/08/23 07:10 11/08/23 07:10 Labs: Laboratory Results - last 24 hr 11/08/23 07:10: Diff Path Review Reviewed Physical Exam Const alert and no apparent distress Constitutional Narrative: Smiling and very pleasant. No aggressive behavior. Slurred speech is markedly improved. General Appearance: cooperative HEENT Mouth: dry mucous membranes Neck supple Resp clear to auscultation bilaterally Resp Narrative: no conversational dyspnea and no cough. Effort and Inspection: Negative for tachypneic or respiratory distress Auscultation: diminished lung sounds localized (mostly in the bases) Cardio regular rate, regular rhythm and no gallops GI normal to inspection, nondistended, normoactive bowel sounds, soft to palpation and non-tender GI Narrative: No guarding with palpation Extremity Extremity Narrative: swelling and ecchymosis RUE no ankle edema Skin Rashes: no rashes Neuro CN's II-XII intact bilaterally Psych cooperative Psych Narrative: Happy and smiling. Talkative and no aggressive or agitated behavior. Still having some visual hallucinations. It will be a few days before the Risperdal is out of her system. Assessment & Plan Assessment/Plan (1) Fracture, humerus closed: (2) Adverse reaction to drug: (3) 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: PLAN: Plan 1. Continue therapy 2. Added Risperdal to the list of allergies due to severe adverse reaction. 3. D/W family. They do not want her on any medications to sedate and want only the medications that will contribute to her quality of life at this time. 4. Find a sling that straps around her waist so that the RUE is immobilized and does not fall out of the sling. If an appropriate sling can not be found will strap the current sling to the chest with an PHANI wrap. 5. Use a polar care to ice the R shoulder 3-4 times a day for 15 minutes. 6. Start Arthritis pain cream TID to the R shoulder. 7. Kaylene has PD with orthostatic hypotension. She is on Metoprolol and Midodrine. Will DC the Metoprolol and use Hydralazine PRN for BP > 180/105. Continue the Midodrine. Recheck orthostatics next week........without the Metoprolol we may be able to go down on the Midodrine to 5 mg TID. 8. Will discuss with the family discontinuing Lipitor, B12, Vitamin C and Famotidine because at this stage of her lifr and iwth dementia they are not contributing to quality of life. 9. Schedule Tylenol 650 Q 8 hours for pain control Charges/Coding Visit Charges Inpatient E&M: 78094 SNF Subs L1
[2023-11-09 16:00] VITALS: BP 124/79; PULSE 87; RESP 16; TEMP 36.3; O2SAT 97
[2023-11-09] MEDS: Arthritis Pain Compound 60 CLICK TUBE TOPICAL (21:13)
[2023-11-09] MEDS: Acetaminophen 325 MG Tablet 650 MG PO (21:14)
[2023-11-10] MEDS: Arthritis Pain Compound 60 CLICK TUBE TOPICAL ×3 (05:46→21:24)
[2023-11-10] MEDS: Acetaminophen 325 MG Tablet 650 MG PO ×3 (05:46→21:26)
[2023-11-10] MEDS: Carbidopa/Levodopa 25/100 Tablet PO ×3 (05:47→17:35)
[2023-11-10] MEDS: [UNRECOGNIZED DRUG - OTHER] 1 EACH EYE ×3 (05:47→21:26)
[2023-11-10] MEDS: Menthol/Lanolin/Calamine/Znox 113 GM Tube 1 APPLIC TOPICAL ×2 (08:45→21:25)
[2023-11-10] MEDS: Midodrine HCl 5 MG Tablet 10 MG PO ×3 (08:45→17:35)
[2023-11-10] MEDS: Aspirin 81 MG TAB.CHEW PO (08:46)
[2023-11-10] MEDS: Cyanocobalamin 500 MCG Tablet 1000 MCG PO (08:46)
[2023-11-10] MEDS: Multivitamins,Therapeutic Tablet 1 TABLET PO (08:46)
[2023-11-10 15:55] VITALS: BP 157/83; PULSE 57; RESP 14; TEMP 37.1; O2SAT 96
[2023-11-10 17:34] VITALS: BP 133/89; PULSE 69
[2023-11-11] MEDS: Arthritis Pain Compound 60 CLICK TUBE TOPICAL ×3 (05:59→21:50)
[2023-11-11] MEDS: Carbidopa/Levodopa 25/100 Tablet PO ×3 (05:59→17:10)
[2023-11-11] MEDS: Acetaminophen 325 MG Tablet 650 MG PO ×3 (05:59→21:50)
[2023-11-11] MEDS: [UNRECOGNIZED DRUG - OTHER] 1 EACH EYE ×3 (06:06→21:57)
[2023-11-11] MEDS: Menthol/Lanolin/Calamine/Znox 113 GM Tube 1 APPLIC TOPICAL ×2 (08:11→21:53)
[2023-11-11] MEDS: Aspirin 81 MG TAB.CHEW PO (08:12)
[2023-11-11] MEDS: Cyanocobalamin 500 MCG Tablet 1000 MCG PO (08:12)
[2023-11-11] MEDS: Midodrine HCl 5 MG Tablet 10 MG PO ×3 (08:12→17:10)
[2023-11-11] MEDS: Multivitamins,Therapeutic Tablet 1 TABLET PO (08:12)
[2023-11-11] MEDS: 0.9% Saline Lock 10 ML Syringe IV ×2 (15:06→21:57)
[2023-11-11 16:00] VITALS: BP 155/82; PULSE 67; RESP 18; TEMP 36.4; O2SAT 96
[2023-11-12] MEDS: Arthritis Pain Compound 60 CLICK TUBE TOPICAL ×3 (06:56→21:33)
[2023-11-12] MEDS: Acetaminophen 325 MG Tablet 650 MG PO ×3 (06:56→21:33)
[2023-11-12] MEDS: Carbidopa/Levodopa 25/100 Tablet PO ×3 (06:57→16:50)
[2023-11-12] MEDS: [UNRECOGNIZED DRUG - OTHER] 1 EACH EYE ×3 (06:58→21:40)
[2023-11-12] MEDS: Aspirin 81 MG TAB.CHEW PO (09:33)
[2023-11-12] MEDS: Multivitamins,Therapeutic Tablet 1 TABLET PO (09:33)
[2023-11-12] MEDS: Cyanocobalamin 500 MCG Tablet 1000 MCG PO (09:33)
[2023-11-12] MEDS: Midodrine HCl 5 MG Tablet 10 MG PO ×3 (09:33→16:50)
[2023-11-12] MEDS: Menthol/Lanolin/Calamine/Znox 113 GM Tube 1 APPLIC TOPICAL ×2 (09:55→21:42)
[2023-11-12 16:00] VITALS: BP 118/69; PULSE 88; RESP 16; TEMP 36.6; O2SAT 94
[2023-11-12] MEDS: Senna/Docusate Sodium 1 Tablet PO (18:10)
[2023-11-13] MEDS: [UNRECOGNIZED DRUG - OTHER] 1 EACH EYE ×2 (06:21→13:37)
[2023-11-13] MEDS: Carbidopa/Levodopa 25/100 Tablet PO ×3 (06:22→17:46)
[2023-11-13] MEDS: Arthritis Pain Compound 60 CLICK TUBE TOPICAL ×3 (06:23→23:28)
[2023-11-13] MEDS: Acetaminophen 325 MG Tablet 650 MG PO ×3 (06:23→23:27)
[2023-11-13 09:10] VITALS: BP 88/56
[2023-11-13] MEDS: Midodrine HCl 5 MG Tablet 10 MG PO ×3 (09:13→17:46)
[2023-11-13] MEDS: Cyanocobalamin 500 MCG Tablet 1000 MCG PO (09:14)
[2023-11-13] MEDS: Multivitamins,Therapeutic Tablet 1 TABLET PO (09:14)
[2023-11-13] MEDS: Menthol/Lanolin/Calamine/Znox 113 GM Tube 1 APPLIC TOPICAL ×2 (09:14→23:29)
[2023-11-13] MEDS: Aspirin 81 MG TAB.CHEW PO (09:14)
[2023-11-13 10:32] VITALS: BMI 18.1
[2023-11-13 14:17] VITALS: BP 119/71; PULSE 69; RESP 18; TEMP 36.3; O2SAT 97
[2023-11-14] MEDS: Carbidopa/Levodopa 25/100 Tablet PO ×3 (05:48→17:01)
[2023-11-14] MEDS: Acetaminophen 325 MG Tablet 650 MG PO ×3 (05:48→20:38)
[2023-11-14] MEDS: Arthritis Pain Compound 60 CLICK TUBE TOPICAL ×3 (05:49→20:38)
[2023-11-14] MEDS: Midodrine HCl 5 MG Tablet 10 MG PO ×3 (09:04→17:00)
[2023-11-14] MEDS: Aspirin 81 MG TAB.CHEW PO (09:05)
[2023-11-14] MEDS: Cyanocobalamin 500 MCG Tablet 1000 MCG PO (09:05)
[2023-11-14] MEDS: Multivitamins,Therapeutic Tablet 1 TABLET PO (09:05)
[2023-11-14] MEDS: Menthol/Lanolin/Calamine/Znox 113 GM Tube 1 APPLIC TOPICAL ×2 (09:06→20:38)
--- NOTE | 2023-11-14 09:32 | NURSING ---
Fabric Normalizer Note; MDS for 11/14/2023 Complete
--- NOTE | 2023-11-14 10:46 | NURSING ---
Primary Operator Note; Activity Asset: Roma Maurice is independent in her choice of daily activities with reminders. She has more confusion from the last admission how did remember Staff. Her family will visit and buddhism family. She welcomes visits from the barbecue cook and therapy dog when available. She has her bible and devotional she will read along w/word puzzles and will watch tv as well. 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 Staff will continue to remind her of weekly activities and respect her right to say no.
[2023-11-14] MEDS: COVID VAC 23-24(12UP)(ANDU)/PF 50 MCG/0.5 ML SYRINGE IM (11:40)
--- NOTE | 2023-11-14 12:08 | CASEMGMT ---
Social Work SW met with patient at bedside to complete initial intake assessment. SW introduced self and role. Patient confirmed demographics and contact information. Prior to admission, patient was residing at [facility] assisted living with outpatient therapy. Patient is actively receiving therapy services at [facility]. Patient confirmed code status as DNRCC-A, No intubation. Patient has an Advanced Directive with Sindhu Haynes assigned primary decision maker. Patient and family has [facility] with next review date of 11/18. Patient's goal is to return to [facility] with resumption of outpatient therapy. SW will continue to follow to support discharge. LOCO Deutsch
--- NOTE | 2023-11-14 13:02 | CASEMGMT ---
Social Work- Care Plan IDT met with patient and children, Mateo, and Sindhu TREVINO to complete care plans. Discussed patient progress with therapy (PT/OT/ST) and dietary. Patient continues to progress with ST; initial B Cat score was 19/50 on 11/08. Patient is progressing with therapy. Patient utilizing straight cane with ambulation. Patient ambulating with min A/ SBA. Patient will require additional support with care for bathing, toileting, and dressing due to left arm. Patient requires Ensure with meals. Patient would like assistance with cutting meals. SW educated patient and family of [employer] Medicare insurance coverage and next review date 11/18. Patient's family would like patient to return to [facility] with therapy. Patient's family is requesting that any medication adjustments should be reviewed with family prior to changes being made. Family is concerned about side effects of Risperdal to patient's cognition. JERMAIN will continue to follow to determine LOCO Deutsch
[2023-11-14] MEDS: [UNRECOGNIZED DRUG - OTHER] 1 EACH EYE ×2 (14:50→20:39)
[2023-11-14] MEDS: Senna/Docusate Sodium 1 Tablet PO (14:50)
[2023-11-14 14:56] VITALS: BP 114/63; PULSE 87; RESP 16; TEMP 36.7; O2SAT 96
[2023-11-15] MEDS: Arthritis Pain Compound 60 CLICK TUBE TOPICAL ×3 (05:33→20:40)
[2023-11-15] MEDS: [UNRECOGNIZED DRUG - OTHER] 1 EACH EYE ×3 (05:34→20:44)
[2023-11-15] MEDS: Carbidopa/Levodopa 25/100 Tablet PO ×3 (05:37→16:40)
[2023-11-15] MEDS: Acetaminophen 325 MG Tablet 650 MG PO ×3 (05:37→20:39)
[2023-11-15 06:13] LABS: Absolute Lymphocyte Count 6.53 X10^3/uL (0.83-4.51); Absolute Neutrophil Count 8.9 X10^3/uL (2.0-7.7); Basophil% 2.2 % (0-1); Eosinophil# 0.69 X10^3/uL; Eosinophils% 3.8 % (0-5); Hematocrit 31.4 % (37-47); Hemoglobin 9.9 g/dL (12.0-15.0); Lymphocyte # 6.53 X10^3/ul (0.83-4.51); Lymphocyte % 35.8 % (19-41); Mean Corp Hgb Conc 31.5 g/dL (32-36); Mean Corpuscular Hgb 30.3 pg (27.0-32.0); Mean Platelet Vol. 9.1 fl (6.2-12.0); Monocyte# 1.66 X10^3/uL; Monocyte% 9.1 % (0-10); NRBC Flagged by Analyzer 0 % (0-5); Neutrophil # 8.85 X10^3/uL (2.7-7.7); Neutrophil % 48.4 % (47-70); POSITIVE DIFFERENTIAL YES; POSITIVE MORPHOLOGY YES; Platelet Count 542 K/mm3 (150-450); RBC Distribution Width CV 14.6 % (11.6-14.6); RBC Distribution Width SD 50.8 fl (35.1-43.9); Red Blood Count 3.27 M/mm3 (4.2-5.4); White Blood Count 18.3 K/mm3 (4.4-11.0)
[2023-11-15 06:30] LABS: Differential Indicated SCAN CRITERIA MET
[2023-11-15 06:53] LABS: Anion Gap 6 (5-15); BUN 33 mg/dL (7-18); BUN/Creat Ratio 30.8 RATIO (10-20); Calcium,Total 8.8 mg/dL (8.5-10.1); Chloride 103 mmol/L (98-107); Creatinine, Serum 1.07 mg/dL (0.55-1.02); EST Glomerular Filtration Rate 52 mL/min (>60); Est Glom Filt Rate - Afr Amer 62 mL/min (>60); Estimated Creatinine Clearance 25.54 ml/min; Glucose 90 mg/dL (74-106); Potassium 4.3 mmol/L (3.5-5.1); Sodium Level 136 mmol/L (136-145)
[2023-11-15 07:48] LABS: Acanthocytes 1+
[2023-11-15 07:49] LABS: Schistocytes 1+
[2023-11-15 07:57] VITALS: BP 93/65; PULSE 79; RESP 18; TEMP 36.4; O2SAT 95
[2023-11-15] MEDS: Aspirin 81 MG TAB.CHEW PO (07:57)
[2023-11-15] MEDS: Midodrine HCl 5 MG Tablet 10 MG PO ×3 (07:57→16:40)
[2023-11-15] MEDS: Cyanocobalamin 500 MCG Tablet 1000 MCG PO (07:57)
[2023-11-15] MEDS: Multivitamins,Therapeutic Tablet 1 TABLET PO (07:57)
[2023-11-15] MEDS: Menthol/Lanolin/Calamine/Znox 113 GM Tube 1 APPLIC TOPICAL ×2 (07:59→20:40)
[2023-11-15] MEDS: Tuberculin,Purif.prot.deriv. 50 TU/ML Vial 0.1 ML ID (11:11)
[2023-11-15] MEDS: Magnesium Citrate 300 ML PO (11:20)
[2023-11-16] MEDS: [UNRECOGNIZED DRUG - OTHER] 1 EACH EYE ×3 (05:57→20:20)
[2023-11-16] MEDS: Acetaminophen 325 MG Tablet 650 MG PO ×3 (05:57→20:20)
[2023-11-16] MEDS: Arthritis Pain Compound 60 CLICK TUBE TOPICAL ×3 (05:58→20:21)
[2023-11-16] MEDS: Carbidopa/Levodopa 25/100 Tablet PO ×3 (05:58→16:46)
[2023-11-16] MEDS: Multivitamins,Therapeutic Tablet 1 TABLET PO (08:46)
[2023-11-16] MEDS: Cyanocobalamin 500 MCG Tablet 1000 MCG PO (08:46)
[2023-11-16] MEDS: Aspirin 81 MG TAB.CHEW PO (08:46)
[2023-11-16] MEDS: Midodrine HCl 5 MG Tablet 10 MG PO ×3 (08:46→16:46)
[2023-11-16] MEDS: Menthol/Lanolin/Calamine/Znox 113 GM Tube 1 APPLIC TOPICAL ×2 (08:46→20:21)
--- NOTE | 2023-11-16 11:46 | NURSING ---
Patient was receiving assistance with shower from therapy. Noted to have skin tear on right chest, appeared to have caught her nail on skin. Area with minimal bleeding. Was cleansed, bandaid placed. Will continue to monitor.
[2023-11-16 13:53] VITALS: BP 134/64; PULSE 56; RESP 17; TEMP 36.6; O2SAT 96
[2023-11-16 15:42] LABS: Pathologist Review Reviewed
[2023-11-17] MEDS: [UNRECOGNIZED DRUG - OTHER] 1 EACH EYE ×3 (06:13→20:28)
[2023-11-17] MEDS: Arthritis Pain Compound 60 CLICK TUBE TOPICAL ×3 (06:14→20:25)
[2023-11-17] MEDS: Carbidopa/Levodopa 25/100 Tablet PO ×3 (06:14→16:45)
[2023-11-17] MEDS: Acetaminophen 325 MG Tablet 650 MG PO ×3 (06:14→20:26)
[2023-11-17] MEDS: Midodrine HCl 5 MG Tablet 10 MG PO ×3 (08:40→16:45)
[2023-11-17] MEDS: Aspirin 81 MG TAB.CHEW PO (08:41)
[2023-11-17] MEDS: Multivitamins,Therapeutic Tablet 1 TABLET PO (08:41)
[2023-11-17] MEDS: Cyanocobalamin 500 MCG Tablet 1000 MCG PO (10:40)
[2023-11-17] MEDS: Menthol/Lanolin/Calamine/Znox 113 GM Tube 1 APPLIC TOPICAL ×2 (10:42→20:26)
[2023-11-17 14:37] VITALS: BP 115/65; PULSE 70; RESP 14; TEMP 36.1; O2SAT 94
[2023-11-18] MEDS: Arthritis Pain Compound 60 CLICK TUBE TOPICAL ×3 (06:39→20:30)
[2023-11-18] MEDS: Acetaminophen 325 MG Tablet 650 MG PO ×3 (06:39→20:35)
[2023-11-18] MEDS: Carbidopa/Levodopa 25/100 Tablet PO ×3 (06:39→16:23)
[2023-11-18] MEDS: [UNRECOGNIZED DRUG - OTHER] 1 EACH EYE ×3 (06:40→20:33)
[2023-11-18] MEDS: Multivitamins,Therapeutic Tablet 1 TABLET PO (08:32)
[2023-11-18] MEDS: Midodrine HCl 5 MG Tablet 10 MG PO ×3 (08:32→16:23)
[2023-11-18] MEDS: Aspirin 81 MG TAB.CHEW PO (08:32)
[2023-11-18] MEDS: Cyanocobalamin 500 MCG Tablet 1000 MCG PO (10:46)
[2023-11-18] MEDS: Menthol/Lanolin/Calamine/Znox 113 GM Tube 1 APPLIC TOPICAL ×2 (12:17→20:34)
[2023-11-18 15:08] VITALS: BP 120/70; PULSE 74; RESP 18; TEMP 36.6; O2SAT 96
[2023-11-19] MEDS: Carbidopa/Levodopa 25/100 Tablet PO ×3 (05:39→18:35)
[2023-11-19] MEDS: Arthritis Pain Compound 60 CLICK TUBE TOPICAL ×3 (05:39→17:55)
[2023-11-19] MEDS: Acetaminophen 325 MG Tablet 650 MG PO ×3 (05:40→20:04)
[2023-11-19] MEDS: [UNRECOGNIZED DRUG - OTHER] 1 EACH EYE ×3 (05:40→20:03)
[2023-11-19] MEDS: Midodrine HCl 5 MG Tablet 10 MG PO ×2 (08:17→13:25)
[2023-11-19 08:30] VITALS: BP 80/47; PULSE 88
[2023-11-19] MEDS: Multivitamins,Therapeutic Tablet 1 TABLET PO (09:20)
[2023-11-19] MEDS: Aspirin 81 MG TAB.CHEW PO (09:20)
[2023-11-19] MEDS: Cyanocobalamin 500 MCG Tablet 1000 MCG PO (09:20)
[2023-11-19] MEDS: Menthol/Lanolin/Calamine/Znox 113 GM Tube 1 APPLIC TOPICAL ×2 (09:23→20:03)
[2023-11-19 14:10] VITALS: BP 120/65; PULSE 81; RESP 16; TEMP 36.3; O2SAT 96
[2023-11-19 20:16] VITALS: RESP 16
[2023-11-20] MEDS: Arthritis Pain Compound 60 CLICK TUBE TOPICAL ×3 (05:25→21:59)
[2023-11-20] MEDS: Acetaminophen 325 MG Tablet 650 MG PO ×3 (06:22→21:59)
[2023-11-20] MEDS: Carbidopa/Levodopa 25/100 Tablet PO ×3 (06:22→18:25)
[2023-11-20 06:33] VITALS: RESP 16
[2023-11-20 08:57] VITALS: BP 105/56; PULSE 93; RESP 16; TEMP 36.3; O2SAT 100
[2023-11-20] MEDS: Multivitamins,Therapeutic Tablet 1 TABLET PO (09:01)
[2023-11-20] MEDS: Aspirin 81 MG TAB.CHEW PO (09:01)
[2023-11-20] MEDS: Midodrine HCl 5 MG Tablet 10 MG PO ×3 (09:01→18:25)
[2023-11-20] MEDS: Cyanocobalamin 500 MCG Tablet 1000 MCG PO (09:01)
[2023-11-20] MEDS: Menthol/Lanolin/Calamine/Znox 113 GM Tube 1 APPLIC TOPICAL ×2 (09:02→21:59)
[2023-11-20 09:07] VITALS: BMI 19.0
--- NOTE | 2023-11-20 09:19 | MDS.RN ---
Information for the MDS was obtained from review of the clinical record, interview of resident, staff, and direct observation of resident?s care.
--- NOTE | 2023-11-20 10:55 | CASEMGMT ---
Social Work JERMAIN received Notice of Medicare Non-Coverage for current [facility] services will on 11/22/2023. JERMAIN attempted to contact patients Sindhu TREVINO; no answer. JERMAIN contacted patient's son, Lalo to notify of Medicare Notice of Non-Coverage for current senior living facility services. JERMAIN reviewed [employer] with Lalo and informed him of patient's Medicare Right to appeal via [employer] [phone]. Lalo declined appeal at this time. Lalo informed JERMAIN that he would like patient to return to [facility]. JERMAIN submitted referral to [facility] via [employer]. Lalo requested for patient to discharge back to facility on 11/22/2023 due to availability to provide transportation. JERMAIN informed Lalo that [facility] will be contacted to coordinate. JERMAIN contacted [facility] and spoke to back up Admission, Eb who confirmed that the patient can return to [facility] assisted living. Eb informed JERMAIN that he will need order for outpatient therapy. [facility] confirmed that they can accept patient back to Assisted Living on . SW to obtain script for outpatient therapy from Physician. JERMAIN notified Lalo of acceptance back to [facility]. Lalo informed JERMAIN that he would like to transport around lunch time. Discharge 11/22/2023: RTN [facility] with Outpatient therapy at [facility]. LOCO Deutsch
[2023-11-20] MEDS: [UNRECOGNIZED DRUG - OTHER] 1 EACH EYE ×2 (13:44→21:59)
[2023-11-20 13:49] VITALS: BP 150/76
[2023-11-20 18:26] VITALS: BP 141/75
--- NOTE | 2023-11-20 20:24 | DS.PCM_ITS ---
Providers Date of Admission: 11/07/23 Primary Care Physician: Dr. 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 * Debility - PT/OT. * Pain - Tylenol 1000mg q6 prn pain (1-10). * Bowel - senna/colace 1 tablet daily prn. * Adult immunization - Administer pneumonia vaccine, covid vaccine, flu vaccine as appropriate. * DVT prophylaxis - Monitor. * Vitamin C deficiency - Vitamin C 500mg daily. * TIA - Aspirin 81mg daily. * Hyperlipidemia - Atorvastatin 40mg qhs. * Parkinson Disease - Sinemet 25/100mg 2 tablets tid. * Vitamin B12 deficiency - B12 1000mcg daily. * GERD - Famotidine 40mg daily. * Hypertension - Metoprolol succinate 25mg daily. * Orthostatic hypotension - Midodrine 10mg tid. * Nutrition - MVI 1 tablet daily. * Agitation 2/2 Parkinson's Dementia - Risperdal 0.5mg qhs x 7 days, then 0.25mg qhs x 7 days, then stop (GDR). * Dry Eyes - Vital 1 gtt TID (eye drops made from patient's blood). Medications at Discharge Home Medications multivitamin 1 tab PO DAILY SUPPLEMENT 11/20/18 carbidopa 25 mg-levodopa 100 mg tablet 2 tab PO TID PARKINSONS 01/05/23 aspirin 81 mg chewable tablet 81 mg PO BREAKFAST Gennio 1 month #30 tabs 06/29/23 VITAL TEARS 1 drp ophthalmic (eye) TID DRY EYES 09/08/23 cyanocobalamin (vitamin B-12) 1,000 mcg sublingual tablet 1,000 mcg sublingual DAILY SUPPLEMENT 09/08/23 midodrine 5 mg tablet 10 mg (2 x 5 mg) PO TIDCM BLOOD PRESSURE #0 tabs 09/14/23 acetaminophen 325 mg tablet 650 mg (2 x 325 mg) PO Q8 #0 tabs 11/20/23 Hospital Course Operations None Procedures None Summary of Care Provided Minutes Spent on Discharge: 35 Hospital Course: 88 year old female with below past medical history hospitalized for fall, right proximal humerus fracture, complicated by DONY, orthostatic hypotension, 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 Discharge to [facility] 11/22/2023 with outpatient PT/OT at [facility]. Physical Exam Const alert and no apparent distress Constitutional Narrative: Smiling and very pleasant. No aggressive behavior. Slurred speech is markedly improved. General Appearance: cooperative HEENT Mouth: dry mucous membranes Neck supple Resp clear to auscultation bilaterally Resp Narrative: no conversational dyspnea and no cough. Effort and Inspection: Negative for tachypneic or respiratory distress Auscultation: diminished lung sounds localized (mostly in the bases) Cardio regular rate, regular rhythm and no gallops GI normal to inspection, nondistended, normoactive bowel sounds, soft to palpation and non-tender GI Narrative: No guarding with palpation Extremity Extremity Narrative: swelling and ecchymosis RUE no ankle edema Skin Rashes: no rashes Neuro CN's II-XII intact bilaterally Psych cooperative Psych Narrative: Happy and smiling. Talkative and no aggressive or agitated behavior. Still having some visual hallucinations. It will be a few days before the Risperdal is out of her system. Weight / BMI Weight Weight: 45.586 kg Body Mass Index (BMI) 19.0 ABG / Lab / Microbiology Data 11/15/23 05:45 11/15/23 05:45 D/C Instructions Discharge Diet: No restrictions Discharge Activity: Return to Normal Activity, May Shower and Use Walker Weight Bearing Status: Weight bearing as tolerated Call your doctor if you observe: Fever of 101 or Higher, Inability to urinate, Inability to have a bowel movement, Shortness of breath, Dizziness, Fainting spells, Swelling in the ankles, Chest pain and Uncontrolled pain Additional Instructions: Discharge to [facility] 11/22/2023 with outpatient PT/OT at [facility]. Meaningful Use Info Meaningful Use Meaningful Use Diagnoses (Choose all that apply): None applicable Ischemic Stroke Statin Dosing Therapy Reference: STATIN DOSE THERAPY REFERENCE: * Patients > 75 years receive moderate or high dose statin therapy. * Patients 75 years or YOUNGER should receive HIGH intensity statin dose unless contraindicated. You will be required to document reason for non-treatment if statin daily dose does not meet guidelines. HIGH DOSE STATIN THERAPY DAILY Atorvastatin > than or = to 40 mg Rosuvastatin > than or = to 20 mg Amlodipine + Atorvastatin > than or = to 2.5/40 mg Ezetimibe + Simvastatin 10/80 mg Simvastatin 80mg Discharge Plan Admission Admit Date/Time: 11/07/23 17:57 Primary Reason for Your Visit: Debility. Attending Provider: Howard Zimmerman Chi Primary Care Provider: Odalis Saravia Instructions Additional Instructions / Restrictions: Discharge to [facility] 11/22/2023 with outpatient PT/OT at [facility]. Discharge Orders/Prescriptions Prescriptions: New acetaminophen 325 mg Tablet 650 mg PO Q8 Qty: 0 0RF Continued carbidopa-levodopa 25-100 mg tablet 2 tab PO TID multivitamin tablet 1 tab PO DAILY aspirin 81 mg Tablet,Chewable 81 mg PO BREAKFAST 30 Days Qty: 30 3RF cyanocobalamin (vitamin B-12) 1,000 mcg tablet, sublingual 1,000 mcg sublingual DAILY VITAL TEARS 1 drp ophthalmic (eye) TID Patient Comments: FAMILY STATES THAT PT USES EYE DROPS MADE AT [facility] THAT IS MADE WITH HER BLOOD. AFTER RESEARCH, EYE DROPS ARE CALLED VITAL EYES, OR AUTOLOGOUS SERUM. midodrine 5 mg Tablet 10 mg PO TIDCM Qty: 0 0RF Discontinued atorvastatin 40 mg Tablet 40 mg PO QHS 30 Days Qty: 30 2RF metoprolol succinate 25 mg Tablet Extended Release 24 Hr 25 mg PO DAILY 30 Days Qty: 30 0RF famotidine 40 mg tablet 40 mg PO DAILY Senna Plus 8.6-50 mg capsule 1 tab-cap PO DAILY PRN (Reason: CONSTIPATION ) ascorbic acid (vitamin C) 500 mg Tablet 500 mg PO DAILY risperidone 0.5 mg Tablet 0.5 mg PO QHS Qty: 0 0RF Referrals / Follow Up: Odalis Saravia MD [Primary Care Provider] - Disposition Disposition (needs filled in before D/C Order can be placed): Assisted Living
[2023-11-21] MEDS: Acetaminophen 325 MG Tablet 650 MG PO ×3 (06:11→22:08)
[2023-11-21] MEDS: [UNRECOGNIZED DRUG - OTHER] 1 EACH EYE ×3 (06:11→22:08)
[2023-11-21] MEDS: Arthritis Pain Compound 60 CLICK TUBE TOPICAL ×3 (06:11→22:08)
[2023-11-21] MEDS: Carbidopa/Levodopa 25/100 Tablet PO ×3 (06:11→17:05)
[2023-11-21] MEDS: Aspirin 81 MG TAB.CHEW PO (07:55)
[2023-11-21] MEDS: Midodrine HCl 5 MG Tablet 10 MG PO ×3 (07:55→17:05)
[2023-11-21] MEDS: Menthol/Lanolin/Calamine/Znox 113 GM Tube 1 APPLIC TOPICAL ×2 (07:55→22:08)
[2023-11-21] MEDS: Multivitamins,Therapeutic Tablet 1 TABLET PO (07:55)
[2023-11-21 08:00] VITALS: BP 97/60; PULSE 84
[2023-11-21] MEDS: Cyanocobalamin 500 MCG Tablet 1000 MCG PO (10:41)
[2023-11-21 16:00] VITALS: BP 103/56; PULSE 68; RESP 16; TEMP 36.6; O2SAT 94
[2023-11-21 17:00] VITALS: BP 140/78; PULSE 66
[2023-11-21 18:47] VITALS: RESP 16
[2023-11-22] MEDS: Arthritis Pain Compound 60 CLICK TUBE TOPICAL (05:51)
[2023-11-22] MEDS: Acetaminophen 325 MG Tablet 650 MG PO (05:52)
[2023-11-22] MEDS: Carbidopa/Levodopa 25/100 Tablet PO ×2 (05:52→12:17)
[2023-11-22] MEDS: [UNRECOGNIZED DRUG - OTHER] 1 EACH EYE (05:55)
[2023-11-22 05:59] LABS: Absolute Lymphocyte Count 7.58 X10^3/uL (0.83-4.51); Basophil# 0.38 X10^3/uL; Basophil% 2.5 % (0-1); Eosinophils% 3.3 % (0-5); Hematocrit 30.9 % (37-47); Lymphocyte # 7.58 X10^3/ul (0.83-4.51); Lymphocyte % 50.7 % (19-41); Mean Corp Hgb Conc 32.4 g/dL (32-36); Mean Corpuscular Volume 95.7 fL (81-99); Mean Platelet Vol. 8.9 fl (6.2-12.0); Monocyte# 1.37 X10^3/uL; Monocyte% 9.2 % (0-10); NRBC Flagged by Analyzer 0.5 % (0-5); Neutrophil # 5.03 X10^3/uL (2.7-7.7); Neutrophil % 33.8 % (47-70); POSITIVE DIFFERENTIAL YES; Platelet Count 549 K/mm3 (150-450); RBC Distribution Width CV 15.3 % (11.6-14.6); RBC Distribution Width SD 53.7 fl (35.1-43.9); Red Blood Count 3.23 M/mm3 (4.2-5.4); White Blood Count 14.9 K/mm3 (4.4-11.0)
[2023-11-22 06:36] LABS: Anion Gap 6 (5-15); BUN 35 mg/dL (7-18); BUN/Creat Ratio 34.3 RATIO (10-20); Calcium,Total 8.9 mg/dL (8.5-10.1); Chloride 107 mmol/L (98-107); Creatinine, Serum 1.02 mg/dL (0.55-1.02); EST Glomerular Filtration Rate 54 mL/min (>60); Est Glom Filt Rate - Afr Amer 66 mL/min (>60); Estimated Creatinine Clearance 27.96 ml/min; Glucose 88 mg/dL (74-106); Potassium 4.5 mmol/L (3.5-5.1); Sodium Level 139 mmol/L (136-145)
[2023-11-22 07:09] LABS: Differential Indicated SCAN CRITERIA MET
[2023-11-22 08:01] LABS: Differential Comment SCANNED
[2023-11-22] MEDS: Menthol/Lanolin/Calamine/Znox 113 GM Tube 1 APPLIC TOPICAL (08:37)
[2023-11-22] MEDS: Cyanocobalamin 500 MCG Tablet 1000 MCG PO (08:41)
[2023-11-22] MEDS: Senna/Docusate Sodium 1 Tablet PO (08:41)
[2023-11-22] MEDS: Midodrine HCl 5 MG Tablet 10 MG PO ×2 (08:41→12:17)
[2023-11-22] MEDS: Multivitamins,Therapeutic Tablet 1 TABLET PO (08:41)
[2023-11-22] MEDS: Aspirin 81 MG TAB.CHEW PO (08:41)
--- NOTE | 2023-11-22 12:12 | CASEMGMT ---
Social Work SW met with patient at bedside to review discharge plans. Patient anticipates discharge to [facility]. Patient denies any concerns at this time. SW assisted with packing patient's cards. Patient anticipates discharge [facility] outpatient therapy PT/OT/ST. SW notified [facility] that patient will require aids for assistance with bathing, dressing, and toileting. Patients son will provide transportation to Assisted Living. LOCO Deutsch
--- NOTE | 2023-11-22 12:26 | NURSING ---
Report called to Kaylee Avila LPN. Patient planning to dc at 1pm, family to transport patient.
--- NOTE | 2023-11-22 13:17 | NURSING ---
Jose Juan May transporting patient to [facility], discharge packet and eyedrops given to Lalo to give to the nurse.
[2023-11-22 13:18] VITALS: BP 144/93; PULSE 64; RESP 16; TEMP 36.7; O2SAT 96
== END 2023-11-22 13:19 | disposition home or self-care (01) | DRG 560 ==
PROVIDERS: Admitting Provider Family Medicine Geriatric Medicine; PCP Internal Medicine; Referring Provider Family Medicine Geriatric Medicine; Visit Provider Family Medicine Geriatric Medicine
DX: S42.201D Unspecified fracture of upper end of right humerus, subsequent encounter for fracture with routine healing (principal); F02.811 Dementia in other diseases classified elsewhere, unspecified severity, with agitation; G90.3 Multi-system degeneration of the autonomic nervous system; G20.A1 Parkinson's disease without dyskinesia, without mention of fluctuations; N18.30 Chronic kidney disease, stage 3 unspecified; I12.9 Hypertensive chronic kidney disease with stage 1 through stage 4 chronic kidney disease, or unspecified chronic kidney disease; E53.8 Deficiency of other specified B group vitamins; I95.1 Orthostatic hypotension; E78.5 Hyperlipidemia, unspecified; K21.9 Gastro-esophageal reflux disease without esophagitis; W19.XXXD Unspecified fall, subsequent encounter; R44.1 Visual hallucinations; S09.90XD Unspecified injury of head, subsequent encounter; Z79.82 Long term (current) use of aspirin; Z79.899 Other long term (current) drug therapy; Z86.73 Personal history of transient ischemic attack (TIA), and cerebral infarction without residual deficits; T43.595A Adverse effect of other antipsychotics and neuroleptics, initial encounter
CPT/HCPCS: 36415; 80048; 82962; 85025; 90480; 92507; 92523; 97110; 97116; 97162; 97166; 97530; 97535; 97802; 91322; A4216

== ENCOUNTER 2023-11-08 09:10 | Emergency (ER) | payer MEDICARE, SELFPAY ==
[2023-11-08 09:11] VITALS: BP 109/62; PULSE 87; RESP 22; TEMP 36.9; O2SAT 93
[2023-11-08 09:15] VITALS: BP 109/62; PULSE 94; RESP 20; TEMP 36.9; O2SAT 94
[2023-11-08 09:36] VITALS: BP 111/71; PULSE 98; RESP 21; O2SAT 94
[2023-11-08 09:37] VITALS: BP 111/71; PULSE 87; RESP 26; TEMP 36.9; O2SAT 95
--- NOTE | 2023-11-08 09:37 | RAD_ITS ---
STUDY: X-RAY CHEST REASON FOR EXAM: Female, 88 years old. syncope TECHNIQUE: Single AP portable view of the chest. COMPARISON: 09/08/2023 FINDINGS: EKG leads overlie the chest The lungs are clear and expanded. There is no demonstrated pleural abnormality. Sternal cerclage wires and vascular clips are present from a prior sternotomy and coronary artery bypass graft procedure (CABG). Normal mediastinum and bar. Normal visualized pulmonary arteries. Normal visualized aortic arch and descending thoracic aorta. There are diffuse degenerative changes of the visualized thoracic spine. There is degenerative osteoarthritis of the bilateral shoulders, with a subacute right humeral fracture. There is no demonstrated abnormality of the visualized soft tissue structures of the upper abdomen. RAD/Chest 1 View (Portable) IMPRESSION: No acute pulmonary process Right humeral fracture Electronically Signed: Jayden Mccormack MD at 10:24 EDT ,
--- NOTE | 2023-11-08 09:39 | EKG12_ITS ---
Test Reason : Blood Pressure : / mmHG Vent. Rate : 092 BPM Atrial Rate : 092 BPM P-R Int : 168 ms QRS Dur : 088 ms QT Int : 352 ms P-R-T Axes : 079 075 006 degrees QTc Int : 435 ms Sinus rhythm with Premature supraventricular complexes Otherwise normal ECG Confirmed by Eric Shearer ([id number]), primer expeditor and drier LILIAN VILLEGAS ([id number]) on 11/09/2023 10:19:15 AM Referred By: Confirmed By:Eric Shearer
--- NOTE | 2023-11-08 09:47 | MRI_ITS ---
STUDY: MRI BRAIN WITHOUT CONTRAST REASON FOR EXAM: Female, 88 years old. stroke TECHNIQUE: Standardized multiplanar fat and water weighted pulse sequences were obtained. The exam is limited by motion artifact. COMPARISON: Head CT dated November 04, 2023 FINDINGS: There is moderate cerebral atrophy with widening of the extra-axial spaces and ventricular dilatation. There are multiple white matter hyperintensities, distributed throughout the deep white matter tracts of the cerebral hemispheres, consistent with moderate chronic white matter ischemic changes. There is no evidence for recent intracranial ischemia or other cause of cytotoxic edema on diffusion weighted imaging (DWI). Normal T2* images of the brain without demonstrated susceptibility artifact. There is no demonstrated hemosiderin stain. Normal bilateral basal ganglia. Normal thalami. There is no extra-axial fluid accumulation. Normal flow voids within the major intracranial circulation suggesting patency by spin echo criteria. Normal sella turcica, pituitary gland, infundibular stalk, optic chiasm and hypothalamus. Normal tectal plate and pineal gland. Normal midbrain, paul and medulla. Normal cerebellum. Normal basal cisterns. Normal bilateral temporal bones. Normal bilateral internal auditory canals. No demonstrated orbital abnormality, within the constraints of a routine brain study. Normal visualized paranasal sinuses. Normal calvarium and skull base. Normal visualized soft tissue structures. Normal visualized upper cervical spine. MRI/Brain without Contrast IMPRESSION: 1. Involutional and chronic ischemic changes of the brain, as described above. Electronically Signed: Wilmer Infante MD at 11:24 EDT ,
--- NOTE | 2023-11-08 09:54 | EX.ED.DYSGE1 ---
HPI History of Present Illness Chief Complaint: Unresponsive Informant: patient, family, SNF and other (Hospitalist (Dr. Sims)) Narrative Narrative: 88-year-old female with history. Patient has been at [facility] since about August. Patient reportedly was admitted into the hospital 01 November. She was diagnosed with a right humerus fracture. Part of her hospital course was told to me by the hospitalist that the patient would be frequently somnolent in the morning but then wandering the halls later in the day. It was noted that the patient was leaning to the left. This was attributed to her arm being in a sling. A caregiver who knows her states that she seems to keep her head turned towards the right. She has not really been with her though to August now if this is new or old. Patient was on Seroquel which may have been turning to mental status so she was changed to Risperdal yesterday. This morning she had just finished breakfast and reportedly had a syncopal episode while in a chair. 1 staff give her wonders if she actually had fallen asleep given her morning somnolence that she has been having. Patient currently denying anything. She is very hard to understand which the caregiver that is with her right now is not sure is new or old. She had morning labs this morning which showed a persistent leukocytosis which she has had. Metabolically that appears unchanged. [facility] Medical History Falls Parkinson's disease CKD (chronic kidney disease), stage III Anemia Brain TIA Parotid tumor Lymphoma Parkinsons disease Premature ventricular contraction Hypertension Premature atrial contractions Hyperlipidemia History of atrial myxoma Nonrheumatic tricuspid valve regurgitation Nonrheumatic mitral valve regurgitation Nonrheumatic mitral (valve) prolapse Home Medications ?Medication ?Instructions ?Recorded ?Last Taken ?Type multivitamin 1 tab PO DAILY SUPPLEMENT 11/20/18 11/07/23 08:00 History carbidopa 25 mg-levodopa 100 mg 2 tab PO TID PARKINSONS 01/05/23 11/08/23 05:40 History tablet aspirin 81 mg chewable tablet 81 mg PO BREAKFAST HEART HEALTH 1 06/29/23 11/07/23 08:00 Rx month #30 tabs atorvastatin 40 mg tablet 40 mg PO QHS CHOLESTEROL 1 month 06/29/23 11/07/23 21:20 Rx #30 tabs VITAL TEARS 1 drp ophthalmic (eye) TID DRY EYES 09/08/23 11/08/23 05:40 History cyanocobalamin (vitamin B-12) 1,000 mcg sublingual DAILY 09/08/23 11/07/23 10:00 History 1,000 mcg sublingual tablet SUPPLEMENT famotidine 40 mg tablet 40 mg PO DAILY ACID REFLUX 09/08/23 11/07/23 10:00 History midodrine 5 mg tablet 10 mg (2 x 5 mg) PO TIDCM BLOOD 09/14/23 11/07/23 07:45 Rx PRESSURE #0 tabs metoprolol succinate 25 mg 25 mg PO DAILY BLOOD PRESSURE 30 10/03/23 11/07/23 10:00 Rx tablet,extended release 24 hr days #30 tabs ascorbic acid (vitamin C) 500 mg 500 mg PO DAILY SUPPLEMENT 11/02/23 11/07/23 10:00 History tablet sennosides 8.6 mg-docusate sodium 1 tab-cap PO DAILY PRN CONSTIPATION 11/02/23 11/02/23 History 50 mg capsule (Senna Plus) risperidone 0.5 mg tablet 0.5 mg PO QHS MOOD #0 tabs 11/07/23 11/07/23 21:20 Rx Allergy/AdvReac Type Severity Reaction Status Date / Time Penicillins Allergy Rash Verified 11/08/23 09:57 tramadol AdvReac Other Verified 11/08/23 09:57 Family History Father Heart disease CHF (congestive heart failure) Mother No problems noted. Surgical History History of facial surgery History of splenectomy History of laparoscopic cholecystectomy Social History household members: none housing: assisted living facility Smoking Status: Never smoker alcohol intake: current details: occasional substance use type: does not use ROS ROS ED Review of Systems ROS Unobtainable: due to mental status EXAM Physical Exam Const Vital Signs: 11/08/23 09:11 11/08/23 09:15 11/08/23 09:36 Temperature 98.4 F 98.4 F Temperature Source Temporal Temporal Pulse Rate 87 94 98 Respiratory Rate 22 H 20 H 21 H Blood Pressure 109/62 109/62 111/71 Blood Pressure Mean 77 77 84 Pulse Ox 93 94 94 Oxygen Delivery Method Room Air Room Air 11/08/23 09:37 11/08/23 11:23 Temperature 98.5 F Temperature Source Temporal Pulse Rate 87 82 Respiratory Rate 26 H 14 Blood Pressure 111/71 137/116 H Blood Pressure Mean 84 123 Pulse Ox 95 100 Oxygen Delivery Method Room Air Positive well nourished and well developed General Appearance ED: well developed and NAD HEENT Reports normocephalic, head/scalp atraumatic and moist mucous membranes Eyes PERRL Eyes Narrative: I cannot get the patient to follow my finger with her eyes. I asked her to look up my nose and tell me when she sees my fingers but she cannot perform that task. Neck no lymphadenopathy, supple and no JVD Resp normal respiratory effort and clear to auscultation bilaterally Cardio regular rate, regular rhythm and no murmurs GI normal to inspection, nondistended, normoactive bowel sounds and non-tender Palpation: soft Back/Spine no CVA tenderness and normal ROM Extremity Extremity Narrative: Dark purplish ecchymosis of the right arm. The right arm is in a sling. Tender palpation along the humerus. There is a ring on the right ring finger. It is still loose unable to split it easily. I am not able to get it off the finger. General Extremety ED: Negative for edema General Extremity: Negative for edema Neuro Neuro Narrative: Patient holds her head rotated to the right. If I stand on the left side of the bed she will turn and look at me. I can turn her head to the left then she goes quickly back to the right. She will converse with me if I stand on the right side of the Sensorium / Orientation: alert, oriented to person and other Patient can tell me that she is in the hospital ; Negative for oriented to time Motor Exam: strength 5/5 throughout Psych mental status grossly normal Mood & Affect: Negative for depressed or tearful Skin no rashes or lesions noted MDM MDM MDM Narrative Medical decision making narrative: Patient was placed on the monitor. EKG is a sinus rhythm with PACs. My independent interpretation of the chest x-ray is no acute process. I spoke with both the hospitalist who admitted her in the hospital as well as the attending from [facility]. We obtained a noncontrasted brain MRI which does not show anything acute. I spoke with Dr. Marie regarding the findings and the plan will be to discharge her back to TCU. CODE STATUS remains DNR Comfort Care arrest no intubation. History & Record Review Discussion w/independent historian: Patient and Other (Caregiver, hospitalist, TCU hospitalist, family) Additional record(s) reviewed:: Prior inpatient record, Prior ED visit and Prior labs Lab Data Attestation: I reviewed the patient's lab results. Labs: Laboratory Results - last 24 hr 11/08/23 09:45 Troponin I High Sens 7 Radiography Diagnostic Testing: Clinical Impression(s) from Imaging Studies Chest X-Ray 11/08/23 09:37 IMPRESSION: No acute pulmonary process Right humeral fracture Electronically Signed: Jayden Mccormack MD at 10:24 EDT , Brain MRI 11/08/23 09:47 IMPRESSION: 1. Involutional and chronic ischemic changes of the brain, as described above. Electronically Signed: Wilmer Infante MD at 11:24 EDT , EKG Initial EKG: Attestation: I personally reviewed and interpreted this EKG as follows: Comments: Sinus rhythm with PACs noted ventricular rate 92 beats per minute Discharge Plan Triage Chief Complaint: Unresponsive Other Complaint: Mental Status Change ED Provider: Kulwant Walker Dx/Rx/DC Orders Clinical Impression: Syncope, Parkinson's disease Prescriptions: No Action carbidopa-levodopa 25-100 mg tablet 2 tab PO TID multivitamin tablet 1 tab PO DAILY atorvastatin 40 mg Tablet 40 mg PO QHS 30 Days Qty: 30 2RF aspirin 81 mg Tablet,Chewable 81 mg PO BREAKFAST 30 Days Qty: 30 3RF metoprolol succinate 25 mg Tablet Extended Release 24 Hr 25 mg PO DAILY 30 Days Qty: 30 0RF famotidine 40 mg tablet 40 mg PO DAILY cyanocobalamin (vitamin B-12) 1,000 mcg tablet, sublingual 1,000 mcg sublingual DAILY VITAL TEARS 1 drp ophthalmic (eye) TID Patient Comments: FAMILY STATES THAT PT USES EYE DROPS MADE AT [facility] THAT IS MADE WITH HER BLOOD. AFTER RESEARCH, EYE DROPS ARE CALLED VITAL EYES, OR AUTOLOGOUS SERUM. midodrine 5 mg Tablet 10 mg PO TIDCM Qty: 0 0RF Senna Plus 8.6-50 mg capsule 1 tab-cap PO DAILY PRN (Reason: CONSTIPATION ) ascorbic acid (vitamin C) 500 mg Tablet 500 mg PO DAILY risperidone 0.5 mg Tablet 0.5 mg PO QHS Qty: 0 0RF Primary Care Provider: Odalis Saravia Referrals: Odalis Saravia MD [Primary Care Provider] - Print Language: Sinhala Disposition Disposition: Long-Term Facility Discharge Location: [facility] Transitional Care Unit
[2023-11-08 10:12] LABS: Troponin-I HS 7 pg/mL (3.0-54.0)
[2023-11-08 11:23] VITALS: BP 137/116; PULSE 82; RESP 14; O2SAT 100
[2023-11-08 11:49] VITALS: BP 104/77; PULSE 86; RESP 20; TEMP -8.8; TEMP 16; O2SAT 94
== END 2023-11-08 12:15 | disposition skilled nursing facility (03) ==
PROVIDERS: Emergency Provider Emergency Medicine; PCP Internal Medicine; Visit Provider Emergency Medicine
DX: R55 Syncope and collapse (principal); G20.A1 Parkinson's disease without dyskinesia, without mention of fluctuations; N18.30 Chronic kidney disease, stage 3 unspecified; R41.82 Altered mental status, unspecified; I12.9 Hypertensive chronic kidney disease with stage 1 through stage 4 chronic kidney disease, or unspecified chronic kidney disease; Z86.73 Personal history of transient ischemic attack (TIA), and cerebral infarction without residual deficits; E78.5 Hyperlipidemia, unspecified; Z79.82 Long term (current) use of aspirin; Z79.899 Other long term (current) drug therapy; Z90.81 Acquired absence of spleen; Z90.49 Acquired absence of other specified parts of digestive tract
CPT/HCPCS: 70551; 71045; 84484; 93005; 99283; A4216

== ENCOUNTER → 2023-11-23 | Outpatient (REF) | payer MEDICARE, SELFPAY ==
[2023-11-23 08:55] LABS: Absolute Lymphocyte Count 6.35 X10^3/uL (0.83-4.51); Absolute Neutrophil Count 5.9 X10^3/uL (2.0-7.7); Basophil# 0.36 X10^3/uL; Basophil% 2.5 % (0-1); Differential Indicated SCAN CRITERIA MET; Eosinophil# 0.46 X10^3/uL; Eosinophils% 3.2 % (0-5); Hematocrit 31.6 % (37-47); Lymphocyte # 6.35 X10^3/ul (0.83-4.51); Lymphocyte % 43.7 % (19-41); Mean Corp Hgb Conc 31.6 g/dL (32-36); Mean Corpuscular Hgb 30.8 pg (27.0-32.0); Mean Corpuscular Volume 97.2 fL (81-99); Mean Platelet Vol. 9.4 fl (6.2-12.0); Monocyte# 1.38 X10^3/uL; Monocyte% 9.5 % (0-10); NRBC Flagged by Analyzer 0 % (0-5); Neutrophil # 5.88 X10^3/uL (2.7-7.7); Neutrophil % 40.5 % (47-70); POSITIVE DIFFERENTIAL YES; POSITIVE MORPHOLOGY YES; Platelet Count 586 K/mm3 (150-450); RBC Distribution Width CV 15.6 % (11.6-14.6); RBC Distribution Width SD 56.1 fl (35.1-43.9); Red Blood Count 3.25 M/mm3 (4.2-5.4); White Blood Count 14.5 K/mm3 (4.4-11.0)
[2023-11-23 09:18] LABS: ALB/GLOB Ratio 0.9 RATIO (0.9-2.4); AST(SGOT) 28 U/L (15-37); Alanine Aminotransfer ALT/SGPT 14 U/L (13-56); Albumin, Serum 2.9 g/dL (3.2-5.0); Alkaline Phosphatase 158 U/L (45-117); Anion Gap 9 (5-15); BUN 31 mg/dL (7-18); BUN/Creat Ratio 28.2 RATIO (10-20); Chloride 105 mmol/L (98-107); EST Glomerular Filtration Rate 50 mL/min (>60); Est Glom Filt Rate - Afr Amer 60 mL/min (>60); Globulin 3.3 g/dL (2.2-4.2); Glucose 103 mg/dL (74-106); Potassium 4.1 mmol/L (3.5-5.1); Protein, Total 6.2 g/dL (6.4-8.2); Sodium Level 140 mmol/L (136-145); Thyroid Stim Hormone (TSH) 2.09 uIU/mL (0.358-3.74)
== END ==
LOC: OLS.WHLTSB 04:00
PROVIDERS: PCP Internal Medicine; Referring Provider Internal Medicine; Visit Provider Internal Medicine
DX: G20.C Parkinsonism, unspecified (principal); C85.90 Non-Hodgkin lymphoma, unspecified, unspecified site; Z79.899 Other long term (current) drug therapy
CPT/HCPCS: 36415; 80053; 84443; 85025

== ENCOUNTER 2023-11-29 14:14 | Emergency (ER) | payer MEDICARE, SELFPAY ==
[2023-11-29 14:15] VITALS: BP 98/61; PULSE 81; RESP 14; TEMP 36.5; O2SAT 93; BMI 21.1
[2023-11-29 14:20] VITALS: O2SAT 97
--- NOTE | 2023-11-29 14:28 | CT_ITS ---
STUDY: CT BRAIN WITHOUT CONTRAST REASON FOR EXAM: Female, 88 years old. Fall RADIATION DOSAGE (If Supplied By Facility): CTDIvol = ( 44.99 ) mGy, DLP = ( 812.98 ) mGycm TECHNIQUE: Transaxial CT imaging of the brain was performed without administration of intravenous contrast material. Individualized dose optimization techniques were used for this CT. COMPARISON: Comparison is made with prior study November 04, 2023. FINDINGS: Normal soft tissue structures. Normal calvarium. There is mild cerebral atrophy with widening of the extra-axial spaces and ventricular dilatation. There are areas of decreased attenuation within the white matter tracts of the supratentorial brain, consistent with microvascular disease changes. Normal basal ganglia and thalami. Normal brainstem. Normal cerebellum. There is no intracranial hemorrhage. There are no findings of an acute ischemic infarction. Atherosclerotic calcific plaques of the vertebral arteries and cavernous portions of the internal carotid arteries bilaterally. Nasal septal deviation towards the right side of the midline. CT/Brain/Head without Contrast IMPRESSION: Chronic involutional changes of the brain. Electronically Signed: Olivier Maradiaga MD at 15:31 EDT ,
--- NOTE | 2023-11-29 14:29 | EKG12_ITS ---
Test Reason : FALL Blood Pressure : / mmHG Vent. Rate : 093 BPM Atrial Rate : 093 BPM P-R Int : 192 ms QRS Dur : 082 ms QT Int : 376 ms P-R-T Axes : 077 085 005 degrees QTc Int : 467 ms Sinus rhythm with Premature supraventricular complexes Otherwise normal ECG Confirmed by REY MASON, DARIO ([id number]), features editor RAJ WOLFF ([id number]) on 12/03/2023 9:30:29 AM Referred By: Confirmed By:DARIO LE MD
--- NOTE | 2023-11-29 14:29 | RAD_ITS ---
STUDY: X-RAY CHEST REASON FOR EXAM: Female, 88 years old. cough TECHNIQUE: Single AP portable view of the chest. COMPARISON: 11/08/2023. FINDINGS: The lungs are hyperexpanded. There are coarsened interstitial markings suggestive of mild chronic fibrosis. No gross focal infiltrates. No gross effusions. Sternal cerclage wires and vascular clips are present from a prior sternotomy and coronary artery bypass graft procedure (CABG). Normal mediastinum and bar. Normal visualized pulmonary arteries. Normal visualized aortic arch and descending thoracic aorta. Normal visualized thoracic spine. There is fracture of the proximal right humerus also present previously. There is no demonstrated abnormality of the visualized soft tissue structures of the upper abdomen. RAD/Chest 1 View (Portable) IMPRESSION: No definite acute or significant abnormality seen. Electronically Signed: Deven Cruz MD at 16:30 EDT ,
--- NOTE | 2023-11-29 14:36 | EX.ED.DYSGE1 ---
HPI <ALEX Jaramillo - Last Filed: 11/29/23 16:44> History of Present Illness Chief Complaint: Fall Narrative Narrative: Patient is an 88-year-old female with history of dementia, hypertension hyperlipidemia who recently fell and has a currently at [facility]. Patient does have a right humeral fracture that she is currently getting treatment for. Today, the patient was walking outside, she then had what staff thought was a syncopal episode, when I speak to the patient she states that she more of lost her balance. However per the nurse practitioner, the patient was not very awake, she had to get sternal rubbed, and her blood pressure was low. Per the staff, she has been more somnolent recently and is here for evaluation. Unsure if she struck her head. Patient does have some skin tears to both tibias, left elbow. 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 Falls Parkinson's disease CKD (chronic kidney disease), stage III Anemia Brain TIA Parotid tumor Lymphoma Parkinsons disease Premature ventricular contraction Hypertension Premature atrial contractions Hyperlipidemia History of atrial myxoma Nonrheumatic tricuspid valve regurgitation Nonrheumatic mitral valve regurgitation Nonrheumatic mitral (valve) prolapse Home Medications ?Medication ?Instructions ?Recorded ?Last Taken ?Type multivitamin 1 tab PO DAILY SUPPLEMENT 11/20/18 11/07/23 08:00 History carbidopa 25 mg-levodopa 100 mg 2 tab PO TID PARKINSONS 01/05/23 11/08/23 05:40 History tablet aspirin 81 mg chewable tablet 81 mg PO BREAKFAST [facility] 1 06/29/23 11/07/23 08:00 Rx month #30 tabs VITAL TEARS 1 drp ophthalmic (eye) TID DRY EYES 09/08/23 11/08/23 05:40 History cyanocobalamin (vitamin B-12) 1,000 mcg sublingual DAILY 09/08/23 11/07/23 10:00 History 1,000 mcg sublingual tablet SUPPLEMENT midodrine 5 mg tablet 10 mg (2 x 5 mg) PO TIDCM BLOOD 09/14/23 11/07/23 07:45 Rx PRESSURE #0 tabs acetaminophen 325 mg tablet 650 mg (2 x 325 mg) PO Q8 #0 tabs 11/20/23 Unknown Rx Allergy/AdvReac Type Severity Reaction Status Date / Time Penicillins Allergy Rash Verified 11/08/23 09:57 risperidone (From Risperdal) AdvReac Severe Low blood Verified 11/09/23 15:26 pressure tramadol AdvReac Other Verified 11/08/23 09:57 Family History Father Heart disease CHF (congestive heart failure) Mother No problems noted. Surgical History History of facial surgery History of splenectomy History of laparoscopic cholecystectomy Social History household members: none housing: assisted living facility Smoking Status: Never smoker alcohol intake: current details: occasional substance use type: does not use ROS <ALEX Jaramillo - Last Filed: 11/29/23 16:44> ROS ED ROS Narrative Constitutional: Negative for fever, chills, weight loss, weakness Eyes: Negative for vision loss, vision change, double vision ENT: Negative for any sore throat, ear pain, congestion Cardiovascular: Negative for any chest pain, tightness, palpitations Respiratory: Negative for any cough, sputum production, hemoptysis, dyspnea, dyspnea on exertion, orthopnea Gastrointestinal: Negative for any abdominal pain, nausea, vomiting, diarrhea, constipation, blood in stool, blood in vomit : Negative for any urinary frequency, dysuria, retention, blood in urine Muscle skeletal: Negative for any neck pain, back pain Neurological: Negative for any headache, syncope, dizziness Skin: Negative for any rashes, itching, abrasions, lacerations. Positive for skin tears to bilateral legs, left elbow Psychiatric: Negative for any depression, anxiety, stress, suicidal ideation, homicidal ideation Hematologic: Negative for any excessive bruising, easy bleeding EXAM <ALEX Jaramillo - Last Filed: 11/29/23 16:44> Physical Exam Narrative Exam Narrative: Vital signs reviewed. Patient does appear to be somnolent, patient does fall asleep when I am not talking to her. Patient does wake up with verbal stimuli. Patient is alert and oriented x 2-3. HEET: Head normocephalic atraumatic, TMs clear bilaterally. Posterior pharynx is clear, dry mucous membranes. Nares clear bilaterally. Neck: Supple with no lymphadenopathy or tenderness. No signs of meningismus. Cardiac: Regular rate and rhythm no murmurs gallops or rubs, equal peripheral pulses bilaterally. Respiratory: Lungs clear to auscultation bilaterally. No chest tenderness. Abdomen: Soft, nontender, nondistended. No abdominal bruit or pulsatile masses. No hepatosplenomegaly Extremities: No peripheral edema, no signs of gross trauma or deformity. Active full range of motion of all extremities. Patient has full range of motion's of bilateral lower extremities, she has minimal range of motion with the right upper extremity secondary to the history of the humeral fracture. Patient's left arm is unremarkable however does have skin tears to the lateral aspect of the elbow. Neuro: Cranial nerves II through XII intact, no focal neurological deficits. No obvious neurological focal deficit. Skin: Clean dry and intact with no rash, purpura, petechiae, vesicles or pustules. Backs/flank: No CVA tenderness, no midline spinal tenderness, no deformity. Psych: Normal mood and affect. No SI, HI or acute psychosis. Const Vital Signs: 11/29/23 14:15 11/29/23 14:20 Temperature 97.7 F L Temperature Source Temporal Pulse Rate 81 Respiratory Rate 14 Respiratory Effort Normal Non-Labored Respiratory Depth Normal Respiratory Pattern Normal Blood Pressure 98/61 Blood Pressure Mean 73 Pulse Ox 93 97 Oxygen Delivery Method Room Air Room Air <Dr. Umesh Velázquez MD - Last Filed: 11/29/23 16:20> Physical Exam Const Vital Signs: 11/29/23 14:15 11/29/23 14:20 Temperature 97.7 F L Temperature Source Temporal Pulse Rate 81 Respiratory Rate 14 Respiratory Effort Normal Non-Labored Respiratory Depth Normal Respiratory Pattern Normal Blood Pressure 98/61 Blood Pressure Mean 73 Pulse Ox 93 97 Oxygen Delivery Method Room Air Room Air JOCELYNN <ALEX Jaramillo - Last Filed: 11/29/23 16:44> [facility] Lab Data Labs: Laboratory Results - last 24 hr 11/29/23 11/29/23 14:50 15:30 WBC 12.7 H RBC 3.24 L Hgb 9.7 L Hct 30.6 L MCV 94.4 MCH 29.9 MCHC 31.7 L RDW Std Deviation 53.4 H RDW Coeff of [place] 15.3 H Plt Count 417 MPV 9.2 Immature Gran % (Auto) 0.500 Neut % (Auto) 40.3 L Lymph % (Auto) 42.3 H Schley % (Auto) 11.6 H Eos % (Auto) 3.1 Baso % (Auto) 2.2 H Absolute Neuts (auto) 5.1 Absolute Lymphs (auto) 5.37 H Nucleated RBC % 0 Differential Comment SCANNED Sodium 135 L Potassium 4.4 Chloride 105 Carbon Dioxide 27.0 Anion Gap 3 L BUN 30 H Creatinine 1.27 H Estim Creat Clear Calc 22.42 Est GFR (MDRD) Af Amer 51 L Est GFR (MDRD) Non-Af 42 L BUN/Creatinine Ratio 23.6 H Glucose 110 H Calcium 8.8 Total Bilirubin 0.40 AST 32 ALT 11 L Alkaline Phosphatase 148 H Troponin I High Sens < 3 L Total Protein 6.4 Albumin 2.9 L Globulin 3.5 Albumin/Globulin Ratio 0.8 L Urine Color Yellow Urine Clarity Clear Urine pH 6.0 Ur Specific [place] 1.015 Urine Protein 15 H Urine Glucose (UA) Normal Urine Ketones Negative Urine Occult Blood Negative Urine Nitrite Negative Urine Bilirubin Negative Urine Urobilinogen Normal Ur Leukocyte Esterase Negative Urine RBC 0 SEEN Urine WBC 0 SEEN Ur Squamous Epith Cells 0-5 SEEN Urine Bacteria 0 SEEN Urine Mucus 0 SEEN Radiography Diagnostic Testing: Clinical Impression(s) from Imaging Studies Brain CT 11/29/23 14:28 IMPRESSION: Chronic involutional changes of the brain. Electronically Signed: Olivier Maradiaga MD at 15:31 EDT , Chest X-Ray 11/29/23 14:29 IMPRESSION: No definite acute or significant abnormality seen. Electronically Signed: Deven Cruz MD at 16:30 EDT , Elbow X-Ray 11/29/23 16:00 IMPRESSION: Normal x-ray examination of the elbow. Electronically Signed: Deven Cruz MD at 16:31 EDT , EKG Sinus rhythm with premature supraventricular complexes,: Attestation: I personally reviewed and interpreted this EKG as follows: Comments: Sinus rhythm, rate 93 bpm, DC 192 ms, QRS duration 82 ms, no acute ST elevation, no acute infarct noted. Treatment and Re-Evaluation :: Differential diagnosis includes however is not limited to: Concussion, syncopal episode, CVA, intercranial bleed, electrode abnormality, infectious etiology Patient appears to be in no obvious respiratory distress, patient's vital signs are stable. Patient presents to the emergency department after a syncopal episode while walking in the garden at the nursing facility. Patient thinks that she had a mechanical fall however per the nurse practitioner who called the emergency department this was more of a syncopal episode. Patient has been more lethargic and somnolent today per the staff. Patient will receive basic laboratory values, EKG, troponin. Urinalysis will be obtained, CT scan of the brain as well as chest x-ray. Patient will be given 1 L normal saline. Patient does have some skin tears however patient has full range of motion of her lower extremities. The left elbow was painful with some motion so I will receive an x-ray of the left elbow. All radiologic examinations were read, reviewed by the emergency department attending. From these reads, a plan of care will be put in place. Patient CT scan of the brain was unremarkable, no acute process. Laboratory values showed a leukocytosis of 12.7 however looking at the patient's lab values over the last several months, this is baseline. Patient's anemia is chronic with a hemoglobin 9.7. Patient's chemistries show slight elevation creatinine 1.27, patient is normally around 1.1. Troponin is negative, patient's urinalysis was negative for any infection. Elbow x-ray showed no acute process. X-ray of the chest shows no definite acute cardiopulmonary disease. At this time, patient's vital signs remained stable, patient did get up and ambulate with a walker, she did well. I do believe the patient is stable to go back to the assisted living. We did speak with the nursing facility, she states it was more of a mechanical fall. Spoke with the patient she is happy with the plan of care, the son is happy, all questions answered stable <Dr. Umesh Velázquez MD - Last Filed: 11/29/23 16:20> [facility] MDM Narrative Medical decision making narrative: I have personally performed a face to face assessment of the patient and have reviewed the TONE Note. I performed a substantive portion of the visit including all aspects of the following. My boyd findings include: History is 88-year-old female who was using her walker at the [facility] and she went over her grade she went down. She had a episode of unresponsiveness. And they called the squad and brought her in. Patient is reportedly DNR comfort care. Had a recent fall and has a humeral head fracture that is healing. Denies any recent illness. I spoke to the [facility] facility about the incident. They did verify the story. Exam is [a 8-year-old female no acute distress. Initial blood pressure 98/61. Temperature 97.7. Pulse ox 97%. No hypoxia. H EENT exam pupils round react light. No facial trauma or droop. No signs of trauma or tenderness to her scalp. Neck nontender. Trachea midline. Lungs clear to auscultation bilaterally. Heart regular rhythm no murmur. Prior sternotomy. Chest wall ribs nontender. Abdomen soft nontender. Pelvic girdle and hips are nontender. No shortening or rotation. Moving all 4 extremities. Limited range of motion with right upper arm due to recent humerus fracture. Hands and wrist nontender. Normal hardboard panel printer strength. Forearm is nontender. She has skin tears on the anterior shins I do not need to be repaired. To be cleaned and dressed. Dorsi and plantarflexion intact. Back nontender. Neurologically she is awake and alert no focal motor deficits.] Medical Decision Making [elderly female from [facility] with a fall. Questionable unresponsiveness. Screening labs are being obtained. Son is present in the room.] Other additions or changes: [None] History & Record Review Discussion w/independent historian: Patient Additional record(s) reviewed:: Prior inpatient record, Prior outpatient record, Prior ED visit and Prior labs Lab Data Attestation: I reviewed the patient's lab results. Lab results narrative: CBC shows a white count 12.7. She is typically an elevated white count. H&H 9.7 and 30 which again is her baseline anemia. Platelets 417. Electrolytes show sodium 135. Gap 3. BUN and creatinine of 30 and 1.27. Again consistent with her chronic renal insufficiency. Glucose 110. Liver enzymes unremarkable. Troponin less than 3. UA normal. No signs of infection. Labs: Laboratory Results - last 24 hr 11/29/23 11/29/23 14:50 15:30 WBC 12.7 H RBC 3.24 L Hgb 9.7 L Hct 30.6 L MCV 94.4 MCH 29.9 MCHC 31.7 L RDW Std Deviation 53.4 H RDW Coeff of [place] 15.3 H Plt Count 417 MPV 9.2 Immature Gran % (Auto) 0.500 Neut % (Auto) 40.3 L Lymph % (Auto) 42.3 H Schley % (Auto) 11.6 H Eos % (Auto) 3.1 Baso % (Auto) 2.2 H Absolute Neuts (auto) 5.1 Absolute Lymphs (auto) 5.37 H Nucleated RBC % 0 Differential Comment SCANNED Sodium 135 L Potassium 4.4 Chloride 105 Carbon Dioxide 27.0 Anion Gap 3 L BUN 30 H Creatinine 1.27 H Estim Creat Clear Calc 22.42 Est GFR (MDRD) Af Amer 51 L Est GFR (MDRD) Non-Af 42 L BUN/Creatinine Ratio 23.6 H Glucose 110 H Calcium 8.8 Total Bilirubin 0.40 AST 32 ALT 11 L Alkaline Phosphatase 148 H Troponin I High Sens < 3 L Total Protein 6.4 Albumin 2.9 L Globulin 3.5 Albumin/Globulin Ratio 0.8 L Urine Color Yellow Urine Clarity Clear Urine pH 6.0 Ur Specific [place] 1.015 Urine Protein 15 H Urine Glucose (UA) Normal Urine Ketones Negative Urine Occult Blood Negative Urine Nitrite Negative Urine Bilirubin Negative Urine Urobilinogen Normal Ur Leukocyte Esterase Negative Urine RBC 0 SEEN Urine WBC 0 SEEN Ur Squamous Epith Cells 0-5 SEEN Urine Bacteria 0 SEEN Urine Mucus 0 SEEN Radiography Chest X-Ray - ED: 1 View, Read by ED Physician, Heart, Lungs, Mediastinum, No Acute Disease and Chronic Changes Diagnostic Testing: Clinical Impression(s) from Imaging Studies Brain CT 11/29/23 14:28 IMPRESSION: Chronic involutional changes of the brain. Electronically Signed: Olivier Maradiaga MD at 15:31 EDT , Chest X-Ray 11/29/23 14:29 IMPRESSION: No definite acute or significant abnormality seen. Electronically Signed: Deven Cruz MD at 16:30 EDT , Elbow X-Ray 11/29/23 16:00 IMPRESSION: Normal x-ray examination of the elbow. Electronically Signed: Deven Cruz MD at 16:31 EDT , Left elbow x-ray, 3 views, interpreted by myself shows no acute fracture. Chest x-ray, portable, single view interpreted by myself. Shows a prior sternotomy with wires. Chronic changes of chest and lungs. No obvious rib fractures. Old humeral head fracture proximal previously seen. EKG Sinus rhythm with premature supraventricular complexes,: Interpretation: Sinus Rhythm and No Acute Injury Pattern Discharge Plan Triage Chief Complaint: Fall ED Midlevel Provider: Bart Bhandari ED Provider: Umesh Velázquez Dx/Rx/DC Orders Clinical Impression: Fall, Skin tear Instructions: ED Abrasion, ED Fall with Uncertain Cause Prescriptions: No Action carbidopa-levodopa 25-100 mg tablet 2 tab PO TID multivitamin tablet 1 tab PO DAILY aspirin 81 mg Tablet,Chewable 81 mg PO BREAKFAST 30 Days Qty: 30 3RF cyanocobalamin (vitamin B-12) 1,000 mcg tablet, sublingual 1,000 mcg sublingual DAILY VITAL TEARS 1 drp ophthalmic (eye) TID Patient Comments: FAMILY STATES THAT PT USES EYE DROPS MADE AT [facility] THAT IS MADE WITH HER BLOOD. AFTER RESEARCH, EYE DROPS ARE CALLED VITAL EYES, OR AUTOLOGOUS SERUM. midodrine 5 mg Tablet 10 mg PO TIDCM Qty: 0 0RF acetaminophen 325 mg Tablet 650 mg PO Q8 Qty: 0 0RF Primary Care Provider: Odalis Saravia Referrals: Odalis Saravia MD [Primary Care Provider] - Activity Restrictions/Additional Instructions: Please increase your water intake, he did look a little bit dry today. Use your walker at all times. Return for any worsening symptoms Print Language: Sinhala Disposition Disposition: Home, Self Care
[2023-11-29] MEDS: 0.9% Normal Saline (1000mL) 1,000 ML 999 ML IV (14:54)
--- NOTE | 2023-11-29 14:59 | ED.RN ---
skin tears to lt forearm, bilat shins
[2023-11-29 15:03] LABS: Absolute Lymphocyte Count 5.37 X10^3/uL (0.83-4.51); Absolute Neutrophil Count 5.1 X10^3/uL (2.0-7.7); Basophil# 0.28 X10^3/uL; Basophil% 2.2 % (0-1); Eosinophil# 0.39 X10^3/uL; Eosinophils% 3.1 % (0-5); Hematocrit 30.6 % (37-47); Hemoglobin 9.7 g/dL (12.0-15.0); Lymphocyte # 5.37 X10^3/ul (0.83-4.51); Lymphocyte % 42.3 % (19-41); Mean Corp Hgb Conc 31.7 g/dL (32-36); Mean Corpuscular Hgb 29.9 pg (27.0-32.0); Mean Corpuscular Volume 94.4 fL (81-99); Mean Platelet Vol. 9.2 fl (6.2-12.0); Monocyte# 1.47 X10^3/uL; Monocyte% 11.6 % (0-10); NRBC Flagged by Analyzer 0 % (0-5); Neutrophil # 5.13 X10^3/uL (2.7-7.7); Neutrophil % 40.3 % (47-70); POSITIVE DIFFERENTIAL YES; Platelet Count 417 K/mm3 (150-450); RBC Distribution Width CV 15.3 % (11.6-14.6); RBC Distribution Width SD 53.4 fl (35.1-43.9); Red Blood Count 3.24 M/mm3 (4.2-5.4); White Blood Count 12.7 K/mm3 (4.4-11.0)
[2023-11-29 15:13] LABS: Differential Indicated SCAN CRITERIA MET
[2023-11-29 15:18] LABS: ALB/GLOB Ratio 0.8 RATIO (0.9-2.4); AST(SGOT) 32 U/L (15-37); Alanine Aminotransfer ALT/SGPT 11 U/L (13-56); Albumin, Serum 2.9 g/dL (3.2-5.0); Alkaline Phosphatase 148 U/L (45-117); Anion Gap 3 (5-15); BUN 30 mg/dL (7-18); BUN/Creat Ratio 23.6 RATIO (10-20); Calcium,Total 8.8 mg/dL (8.5-10.1); Chloride 105 mmol/L (98-107); Creatinine, Serum 1.27 mg/dL (0.55-1.02); EST Glomerular Filtration Rate 42 mL/min (>60); Est Glom Filt Rate - Afr Amer 51 mL/min (>60); Estimated Creatinine Clearance 22.42 ml/min; Globulin 3.5 g/dL (2.2-4.2); Glucose 110 mg/dL (74-106); Potassium 4.4 mmol/L (3.5-5.1); Protein, Total 6.4 g/dL (6.4-8.2); Sodium Level 135 mmol/L (136-145); Troponin-I HS < 3 pg/mL (3.0-54.0)
[2023-11-29 15:41] LABS: Bacteria 0 SEEN /hpf (None Seen); Mucous, Urine 0 SEEN /hpf (<or=2+); Red Blood Cells-Urine 0 SEEN /hpf (0-5); White Blood Cells 0 SEEN /hpf (0-5)
[2023-11-29 15:44] LABS: Color, Urine Yellow (Yellow); Glucose, Dipstick Normal (Normal); Ketone-Dipstick Negative (Negative); Leukocyte Esterase-Dipstick Negative /ul (Negative); Nitrite-Dipstick Negative (Negative); Occult Blood-Urine Negative /ul (Negative); Protein-Dipstick 15 mg/dl (Negative); Specific Gravity, Urine 1.015 (1.002-1.030); Urine Bilirubin Dipstick Negative (Negative); Urine Clarity Clear (Clear); Urine Urobilinogen Normal (Normal)
[2023-11-29 15:48] LABS: Differential Comment SCANNED
[2023-11-29 15:53] LABS: Squamous Epithelial Cells - UA 0-5 SEEN /hpf (5-10)
--- NOTE | 2023-11-29 16:00 | RAD_ITS ---
STUDY: X-RAY - LEFT ELBOW REASON FOR EXAM: Female, 88 years old. fall TECHNIQUE: 3 view(s) of the elbow. COMPARISON: None. FINDINGS: Normal visualized humerus, radius and ulna. Normal radiocapitellar and ulnotrochlear articulations. The soft tissue structures are unremarkable. There is no demonstrated fracture. RAD/Elbow min 3 Views IMPRESSION: Normal x-ray examination of the elbow. Electronically Signed: Deven Cruz MD at 16:31 EDT ,
[2023-11-29 16:44] VITALS: BP 152/15; PULSE 88; RESP 16; TEMP 36.4; O2SAT 97
== END 2023-11-29 16:48 | disposition home or self-care (01) ==
PROVIDERS: Nurse Practitioner; Emergency Provider Emergency Medicine; PCP Internal Medicine; Visit Provider Emergency Medicine
DX: S51.012A Laceration without foreign body of left elbow, initial encounter (principal); G20.A1 Parkinson's disease without dyskinesia, without mention of fluctuations; F02.80 Dementia in other diseases classified elsewhere, unspecified severity, without behavioral disturbance, psychotic disturbance, mood disturbance, and anxiety; N18.30 Chronic kidney disease, stage 3 unspecified; E78.5 Hyperlipidemia, unspecified; I12.9 Hypertensive chronic kidney disease with stage 1 through stage 4 chronic kidney disease, or unspecified chronic kidney disease; Z86.73 Personal history of transient ischemic attack (TIA), and cerebral infarction without residual deficits; Z79.82 Long term (current) use of aspirin; Z79.899 Other long term (current) drug therapy; Z90.81 Acquired absence of spleen; Z90.49 Acquired absence of other specified parts of digestive tract; W18.39XA Other fall on same level, initial encounter; Y93.01 Activity, walking, marching and hiking; Y92.129 Unspecified place in nursing home as the place of occurrence of the external cause
CPT/HCPCS: 70450; 71045; 73080; 80053; 81001; 84484; 85025; 93005; 96360; 99284; J7030; P9612

== ENCOUNTER → 2023-12-07 | Outpatient (REF) | payer MEDICARE, SELFPAY ==
[2023-12-07 07:43] LABS: Absolute Neutrophil Count 4.4 X10^3/uL (2.0-7.7); Basophil% 2.5 % (0-1); Eosinophil# 0.54 X10^3/uL; Eosinophils% 4.4 % (0-5); Hematocrit 34.8 % (37-47); Lymphocyte % 45.9 % (19-41); Mean Corp Hgb Conc 31.6 g/dL (32-36); Mean Corpuscular Hgb 29.8 pg (27.0-32.0); Mean Corpuscular Volume 94.3 fL (81-99); Mean Platelet Vol. 9.8 fl (6.2-12.0); Monocyte# 1.33 X10^3/uL; Monocyte% 10.9 % (0-10); NRBC Flagged by Analyzer 0 % (0-5); Neutrophil # 4.37 X10^3/uL (2.7-7.7); Neutrophil % 35.9 % (47-70); POSITIVE DIFFERENTIAL YES; POSITIVE MORPHOLOGY YES; Platelet Count 405 K/mm3 (150-450); RBC Distribution Width SD 52.6 fl (35.1-43.9); Red Blood Count 3.69 M/mm3 (4.2-5.4); White Blood Count 12.2 K/mm3 (4.4-11.0)
[2023-12-07 08:03] LABS: Anion Gap 8 (5-15); BUN 24 mg/dL (7-18); BUN/Creat Ratio 23.1 RATIO (10-20); Chloride 105 mmol/L (98-107); Creatinine, Serum 1.04 mg/dL (0.55-1.02); EST Glomerular Filtration Rate 53 mL/min (>60); Est Glom Filt Rate - Afr Amer 64 mL/min (>60); Glucose 93 mg/dL (74-106); Sodium Level 139 mmol/L (136-145)
[2023-12-07 08:43] LABS: Differential Indicated SCAN CRITERIA MET
== END ==
LOC: OLS.WHLTSB 05:00
PROVIDERS: PCP Internal Medicine; Visit Provider Internal Medicine
DX: I10 Essential (primary) hypertension (principal)
CPT/HCPCS: 36415; 80048; 85025

== ENCOUNTER → 2023-12-21 | Outpatient (REF) | payer MEDICARE, SELFPAY ==
[2023-12-21 08:05] LABS: Absolute Lymphocyte Count 5.69 X10^3/uL (0.83-4.51); Absolute Neutrophil Count 4.6 X10^3/uL (2.0-7.7); Basophil# 0.37 X10^3/uL; Basophil% 2.8 % (0-1); Eosinophil# 1.02 X10^3/uL; Eosinophils% 7.6 % (0-5); Hematocrit 34.6 % (37-47); Hemoglobin 10.9 g/dL (12.0-15.0); Lymphocyte # 5.69 X10^3/ul (0.83-4.51); Lymphocyte % 42.6 % (19-41); Mean Corp Hgb Conc 31.5 g/dL (32-36); Mean Corpuscular Hgb 29.8 pg (27.0-32.0); Mean Corpuscular Volume 94.5 fL (81-99); Mean Platelet Vol. 9.8 fl (6.2-12.0); Monocyte# 1.63 X10^3/uL; Monocyte% 12.2 % (0-10); NRBC Flagged by Analyzer 0 % (0-5); Neutrophil # 4.59 X10^3/uL (2.7-7.7); Neutrophil % 34.4 % (47-70); POSITIVE DIFFERENTIAL YES; POSITIVE MORPHOLOGY YES; Platelet Count 433 K/mm3 (150-450); RBC Distribution Width CV 14.6 % (11.6-14.6); RBC Distribution Width SD 51.2 fl (35.1-43.9); Red Blood Count 3.66 M/mm3 (4.2-5.4); White Blood Count 13.4 K/mm3 (4.4-11.0)
[2023-12-21 08:14] LABS: Differential Indicated SCAN CRITERIA MET
[2023-12-21 08:28] LABS: Vitamin B12 880 pg/mL (211-911)
[2023-12-21 08:33] LABS: AST(SGOT) 28 U/L (15-37); Alanine Aminotransfer ALT/SGPT 10 U/L (13-56); Albumin, Serum 3.1 g/dL (3.2-5.0); Alkaline Phosphatase 148 U/L (45-117); Anion Gap 8 (5-15); BUN 24 mg/dL (7-18); Bilirubin, Direct 0.08 mg/dL (0.00-0.30); Calcium,Total 9.2 mg/dL (8.5-10.1); Chloride 106 mmol/L (98-107); Cholesterol 212 mg/dL (200); Creatinine, Serum 1.09 mg/dL (0.55-1.02); EST Glomerular Filtration Rate 50 mL/min (>60); Est Glom Filt Rate - Afr Amer 61 mL/min (>60); Globulin 3.3 g/dL (2.2-4.2); Glucose 83 mg/dL (74-106); High Density Lipoprotein 56 mg/dL; Protein, Total 6.4 g/dL (6.4-8.2); Sodium Level 139 mmol/L (136-145); Triglycerides 154 mg/dL; Very Low Density Lipoprotein 31 mg/dL (5-40)
[2023-12-24 14:15] LABS: Pathologist Review Reviewed
== END ==
LOC: OLS.WHLTSB 05:00
PROVIDERS: PCP Internal Medicine; Visit Provider Internal Medicine
DX: I10 Essential (primary) hypertension (principal); G20.C Parkinsonism, unspecified; E78.5 Hyperlipidemia, unspecified
CPT/HCPCS: 36415; 80048; 80061; 80076; 82306; 82607; 85025

== ENCOUNTER 2023-12-22 17:57 | Inpatient (IN) | payer MEDICARE, SELFPAY ==
[2023-12-22 17:58] VITALS: BP 166/87; PULSE 76; RESP 18; TEMP 36.4; O2SAT 90; BMI 20.8
--- NOTE | 2023-12-22 18:06 | ED.VIS.FALL ---
HPI HPI - Fall History of Present Illness Chief Complaint: Lower Extremity Injury Informant: patient Occured/Mechanism Occurred: Today Mechanism/Context: Yes same level fall Usually ambulates: Without assistance Pain/Injury Pain Location: lower extremity Quality of Pain: Sharp Current Severity: Mild Maximum Severity: Moderate Associated Symptoms Associated Symptoms: Positive for Inability to ambulate; Negative for Parasthesias, Weakness, Loss of function, Loss of consciousness or Amnesia Narrative Narrative: 88-year-old female resident at [facility]. Has a history of Parkinson's, chronic kidney disease, TIA and anemia. Some change from of her pocket she went to reach for it fell injuring her right hip. She said if she is remaining still the pain is not too bad if she goes to move the hip she has significant pain. Denies hitting her head. No LOC. No head injury. She is not on any blood thinners. Denies any other complaints. No recent illness. 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 Falls Parkinson's disease CKD (chronic kidney disease), stage III Anemia Brain TIA Parotid tumor Lymphoma Parkinsons disease Premature ventricular contraction Hypertension Premature atrial contractions Hyperlipidemia History of atrial myxoma Nonrheumatic tricuspid valve regurgitation Nonrheumatic mitral valve regurgitation Nonrheumatic mitral (valve) prolapse Home Medications ?Medication ?Instructions ?Recorded ?Last Taken ?Type multivitamin 1 tab PO DAILY SUPPLEMENT 11/20/18 11/07/23 08:00 History carbidopa 25 mg-levodopa 100 mg 2 tab PO TID PARKINSONS 01/05/23 11/08/23 05:40 History tablet aspirin 81 mg chewable tablet 81 mg PO [facility] 1 06/29/23 11/07/23 08:00 Rx month #30 tabs VITAL TEARS 1 drp ophthalmic (eye) TID DRY EYES 09/08/23 11/08/23 05:40 History midodrine 5 mg tablet 10 mg (2 x 5 mg) PO TIDCM BLOOD 09/14/23 11/07/23 07:45 Rx PRESSURE #0 tabs acetaminophen 325 mg tablet 650 mg PO Q8 PRN fever or pain 12/22/23 Unknown History Allergy/AdvReac Type Severity Reaction Status Date / Time Penicillins Allergy Rash Verified 12/22/23 17:58 risperidone (From Risperdal) AdvReac Severe Low blood Verified 12/22/23 17:58 pressure tramadol AdvReac Other Verified 12/22/23 17:58 Family History Father Heart disease CHF (congestive heart failure) Mother No problems noted. Surgical History History of facial surgery History of splenectomy History of laparoscopic cholecystectomy Social History household members: none housing: assisted living facility Smoking Status: Never smoker alcohol intake: current details: occasional substance use type: does not use ROS ROS ED ROS Narrative Denies recent illness. Review of Systems ROS Unobtainable: Denies due to encephalopathy Constitutional Constitutional ED: Denies chills Eyes Eyes: Denies blurry vision ENT ENT ED: Denies ear pain Cardiovascular Cardiovascular: Denies chest pain Respiratory/Chest Respiratory/Chest: Denies cough Gastrointestinal Gastrointestinal: Denies abdominal pain Musculoskeletal Musculoskeletal: Denies arthralgias Integumentary Denies abscess Neurologic Neurologic: Denies headache(s) Psychiatric Psychiatric: Denies anxiety Endocrine Endocrinology: Denies polydipsia Hematologic/Lymphatic Hematologic/Lymphatic: Denies easy bleeding Allergic/Immunologic Allergic/Immunologic ED: Denies mouth swelling, tongue swelling or urticaria EXAM Physical Exam Narrative Exam Narrative: 88-year-old female vital signs stable afebrile. She is sitting upright in bed. She is position lying more in her left hip. Myself and the nurse are present in the room. H EENT exam pupils round react light. There is no trauma to her face or scalp. Nontender. Neck nontender. Lungs clear. Heart regular rhythm rate about 75 no murmur. Chest wall and ribs nontender. Abdomen soft nontender. Pelvic girdle is intact. She is holding her right hip flex. She does not want to flex at her extended due to pain. Distal femur, knee, right lower leg ankle and foot are nontender. She has a dressing on her proximal lateral lower leg due to a prior fall. Dorsi and plantarflexion is intact. She has tenderness to her right hip and does not want to do range of motion due to discomfort. 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 Left lower extremity is nontender. Back nontender. Neurologically she is awake and alert with no focal motor deficits. Answering questions and following commands. Const Vital Signs: 12/22/23 17:58 Temperature 97.6 F L Temperature Source Oral Pulse Rate 76 Respiratory Rate 18 Blood Pressure 166/87 H Blood Pressure Mean 113 Pulse Ox 90 Oxygen Delivery Method Room Air Positive well nourished and well developed; Negative for obese, cachectic, contractures or unkempt General Appearance ED: well developed and NAD; Negative for unkempt, cachectic or contractures Nutritional Appearance: Negative for cachectic or obese HEENT Reports normocephalic atraumatic; Negative for trauma, contusion, hematoma or tenderness Eyes PERRL and EOMs intact bilaterally General Eye ED: Negative for pale conjunctiva or scleral icterus Neck full ROM, no lymphadenopathy and supple General: Negative for tenderness Chest Wall inspection of chest normal and palpation of chest normal Chest: Negative for other Resp normal respiratory effort, no retractions and clear to auscultation bilaterally Effort and Inspection: Negative for pain with movement Auscultation: Negative for rales, rhonchi, wheezes or diminished lung sounds Cardio regular rate, regular rhythm, S1 normal heart sound, S2 normal heart sound and no murmurs Rate: Negative for bradycardia or tachycardic Rhythm: Negative for abnormal rhythm Bruits: Negative for other GI non-tender, non-distended and no masses Inspection: Negative for abdominal distention Auscultation: normoactive bowel sounds Palpation: soft; Negative for guarding or rebound tenderness present Back/Spine no CVA tenderness General Back: Negative for CVA tenderness Cervical Spine: Negative for cervical spine tenderness Neuro oriented x3, CN's II-XII intact bilaterally, moves all extremities and no focal motor deficits Sensorium / Orientation: alert, oriented to person, oriented to place and oriented to time; Negative for orientation impaired, confused, lethargic or stuporous Motor Exam: strength 5/5 throughout Psych mental status grossly normal and thought process normal Appearance: Negative for unkempt Attitude: No agitated Mood & Affect: Negative for depressed or anxious Skin Lesions: no lesions Trauma: Negative for abrasion or laceration MDM MDM MDM Narrative Medical decision making narrative: 88-year-old female fell at her nursing facility. Complaining of right hip pain. Concern for hip fracture versus dislocation versus contusion. No other injuries. No head injury. X-ray to be obtained. She will be treated for morphine and Zofran for pain. Patient has a right hip fracture. I spoke to Dr. Adrien Baez on-call for orthopedics. Patient was previously a patient of Dr. Chi. He is excepted the patient for surgery tomorrow. I have spoken to the hospitalist and patient be admitted to general medical floor. Patient family are comfortable to plan. History & Record Review Discussion w/independent historian: Patient Additional record(s) reviewed:: Prior inpatient record, Prior outpatient record, Prior ED visit, Prior labs and No prior records Lab Data Attestation: I reviewed the patient's lab results. Lab results narrative: CBC shows white count of 15.2. H&H 11.0 and 34. Platelets 365. Labs: Laboratory Results - last 24 hr 12/22/23 18:55 WBC 15.2 H RBC 3.68 L Hgb 11.0 L Hct 34.8 L MCV 94.6 MCH 29.9 MCHC 31.6 L RDW Std Deviation 50.5 H RDW Coeff of [place] 14.6 Plt Count 365 MPV 9.2 Immature Gran % (Auto) 1.200 H Neut % (Auto) 40.9 L Lymph % (Auto) 41.4 H [place] % (Auto) 9.0 Eos % (Auto) 5.1 H Baso % (Auto) 2.4 H Absolute Neuts (auto) 6.2 Absolute Lymphs (auto) 6.30 H Nucleated RBC % 0 Radiography Chest X-Ray - ED: 1 View, Read by ED Physician, Normal, Heart, Mediastinum, Bony Structures, No Acute Disease and Chronic Changes Diagnostic Testing: Right hip x-ray with pelvis, 2 views, interpreted by myself shows right hip fracture. Discharge Plan Dx/Rx/DC Orders Clinical Impression: Fall, Fracture of hip, right, closed, History of Parkinson disease, History of chronic kidney disease, History of TIAs Disposition Disposition: Acute Care Hospital [facility]
[2023-12-22] MEDS: Ondansetron 4 MG/2 ML Vial IV (18:14)
[2023-12-22] MEDS: Morphine 4 MG/ML Syringe IV (18:14)
--- NOTE | 2023-12-22 18:35 | RAD_ITS ---
EXAM: XR RIGHT HIP WITH PELVIS WHEN PERFORMED, 2 OR 3 VIEWS CLINICAL INDICATION: fall TECHNIQUE: Two or three views of the right hip with pelvis when performed. COMPARISON: No relevant prior studies available. FINDINGS: BONES/JOINTS: There is a fracture of the right femoral neck. No destructive or sclerotic lesions. Note that overlapping bowel shadows may however obscure fine detail. Sacroiliac joint is unremarkable. No widening of the pubic symphysis. The articular structures are unremarkable. SOFT TISSUES: Unremarkable. No soft tissue swelling or gas. RAD/HIP, UNI W/ Pelvis 2-3 Views IMPRESSION: Fracture of the right femoral neck. Electronically Signed: Erick Kinney MD at 19:41 EDT ,
--- NOTE | 2023-12-22 18:35 | RAD_ITS ---
EXAM: XR CHEST, 1 VIEW CLINICAL INDICATION: pre-op for hip fracture TECHNIQUE: Frontal view of the chest. COMPARISON: 11/08/2023 FINDINGS: LUNGS AND PLEURAL SPACES: Unremarkable. No consolidation or edema. No pneumothorax. No effusion. HEART: Unremarkable. Cardiac silhouette not enlarged. MEDIASTINUM: Central airways and mediastinal contour are unremarkable. BONES/JOINTS: There is a fracture of the proximal right humerus. SOFT TISSUES: Unremarkable. RAD/Chest 1 View (Portable) IMPRESSION: 1. No acute pulmonary abnormality. 2. Old fracture of the proximal right humerus. Electronically Signed: Erick Kinney MD at 19:39 EDT ,
[2023-12-22 19:04] LABS: Absolute Neutrophil Count 6.2 X10^3/uL (2.0-7.7); Basophil# 0.37 X10^3/uL; Basophil% 2.4 % (0-1); Eosinophil# 0.77 X10^3/uL; Eosinophils% 5.1 % (0-5); Hematocrit 34.8 % (37-47); Lymphocyte % 41.4 % (19-41); Mean Corp Hgb Conc 31.6 g/dL (32-36); Mean Corpuscular Hgb 29.9 pg (27.0-32.0); Mean Corpuscular Volume 94.6 fL (81-99); Mean Platelet Vol. 9.2 fl (6.2-12.0); Monocyte# 1.37 X10^3/uL; NRBC Flagged by Analyzer 0 % (0-5); Neutrophil # 6.22 X10^3/uL (2.7-7.7); Neutrophil % 40.9 % (47-70); POSITIVE DIFFERENTIAL YES; POSITIVE MORPHOLOGY YES; Platelet Count 365 K/mm3 (150-450); RBC Distribution Width CV 14.6 % (11.6-14.6); RBC Distribution Width SD 50.5 fl (35.1-43.9); Red Blood Count 3.68 M/mm3 (4.2-5.4); White Blood Count 15.2 K/mm3 (4.4-11.0)
[2023-12-22 19:12] LABS: Differential Indicated SCAN CRITERIA MET
--- NOTE | 2023-12-22 19:14 | PCM.HP.STD ---
[facility] - General General Date of Admission: 12/22/23 Date of Service: 12/22/23 Chief Complaint: Right Hip Pain after Fall. [facility] Narrative ADDIS HAYNES, is a 88 F with a past medical history of hyperlipidemia, Parkinson's disease; with underlying dementia, history of TIA, chronic orthostasis; on midodrine, CKD; stage III, history of splenectomy, chronic normochromic normocytic anemia, history of parotid tumor, history of lymphoma; followed by Dr. Brooks of [facility] oncology, history of atrial myxoma; s/p excision and Left pericardial patch (2000), history of nonrheumatic tricuspid valve regurgitation; frequent PVCs, history of nonrheumatic mitral valve regurgitation and prolapse; with LVEF ~70% (June 2023), listed allergy to PCN (rash), history of vitamin B12 deficiency, history of laparoscopic cholecystectomy, chronic debility, history of adult failure to thrive, GERD, osteoarthritis and recent admission here in October 2023 with Right humeral fracture after mechanical fall while trying to mobilize with a walker requiring subsequent rehabilitation who re-presents to [facility] complaining of persistent Right hip pain after fall. Ms. Haynes currently resides at [facility] and she explains that approximately 1 hour prior to admission some change fell out of her pocket and when she went to reach for it on the ground she felt onto her Right hip when trying to stand back up with subsequent severe pain in the Right hip and inability to mobilize so EMS was activated. She denies loss of consciousness or significant head trauma with her fall. She takes baby aspirin daily and no other antiplatelet or anticoagulant agents. She denies associated fever, chills, nausea, vomiting, diarrhea, constipation, paresthesias, chest pain with activity or other recent illness. I spoke with the patient's son at the bedside in the ER and he helped to augment the history and I answered his questions to the best of my ability as she is deemed to have no absolute contraindications to medically necessary medium-risk orthopedic surgery. In the ER she was noted to have x-ray evidence of Right hip fracture likely due to to chronic disequilibrium related to Parkinson's disease in the setting of known chronic orthostasis; on midodrine with a history of a recent fall with right humeral fracture in October 2023 and she was then admitted to the general medical floor for ongoing care for stay that is expected to extend beyond 2 midnights. 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 CKD (chronic kidney disease), stage III Anemia Falls Brain TIA Parkinson's disease Parotid tumor Lymphoma Parkinsons disease Premature ventricular contraction Hypertension Premature atrial contractions Hyperlipidemia History of atrial myxoma Nonrheumatic tricuspid valve regurgitation Nonrheumatic mitral valve regurgitation Nonrheumatic mitral (valve) prolapse Home Medications ?Medication ?Instructions ?Recorded ?Last Taken ?Type multivitamin 1 tab PO DAILY SUPPLEMENT 11/20/18 11/07/23 08:00 History carbidopa 25 mg-levodopa 100 mg 2 tab PO TID PARKINSONS 01/05/23 11/08/23 05:40 History tablet aspirin 81 mg chewable tablet 81 mg PO [facility] 1 06/29/23 11/07/23 08:00 Rx month #30 tabs VITAL TEARS 1 drp ophthalmic (eye) TID DRY EYES 09/08/23 11/08/23 05:40 History midodrine 5 mg tablet 10 mg (2 x 5 mg) PO TIDCM BLOOD 09/14/23 11/07/23 07:45 Rx PRESSURE #0 tabs acetaminophen 325 mg tablet 650 mg PO Q8 PRN fever or pain 12/22/23 Unknown History Allergy/AdvReac Type Severity Reaction Status Date / Time Penicillins Allergy Rash Verified 12/22/23 17:58 risperidone (From Risperdal) AdvReac Severe Low blood Verified 12/22/23 17:58 pressure tramadol AdvReac Other Verified 12/22/23 17:58 Family History Father Heart disease CHF (congestive heart failure) Mother No problems noted. Surgical History History of facial surgery History of splenectomy History of laparoscopic cholecystectomy Social History household members: none housing: assisted living facility Smoking Status: Never smoker alcohol intake: current details: occasional substance use type: does not use ROS ROS Narrative Review of systems: General: Patient denies fever or chills. HENT: Denies headache, denies stuffy nose, denies sore throat EYES: Denies changes in vision or discharge from eyes. Resp: Denies cough, denies shortness of breath Cardiac: Denies chest pain, palpitations or heart racing. GI: Denies abdominal pain, denies changes in bowel, denies nausea or vomiting. : Denies changes in urination Extremity: Patient admits to severe Right hip pain made worse with movement but relieved by rest as per HPI. Musculoskeletal: Patient admits to Right hip pain since fall. Neuro: Patient denies headache, paresthesias or focal neurologic deficits. Heme: Denies any bleeding or bruising Skin: Denies rashes Psychiatric: No complaints voiced related uncontrolled depression or anxiety. Endocrine: No polyuria, polydipsia or polyphagia. The rest of the 14 point ROS was negative except for positives in HPI. Vital Signs Vital Signs Vital Signs: 12/22/23 17:58 Temperature 97.6 F L Temperature Source Oral Pulse Rate 76 Respiratory Rate 18 Blood Pressure 166/87 H Blood Pressure Mean 113 Pulse Ox 90 Oxygen Delivery Method Room Air Weight Weight: 106 lb 11.26 oz Body Mass Index (BMI) 20.8 Physical Exam Const alert, oriented x3, no apparent distress, average body habitus and healthy appearing General Appearance: cooperative HEENT normocephalic, head/scalp atraumatic, hearing grossly normal bilaterally and moist oral mucous membranes Eyes PERRL and EOMs intact bilaterally Neck no lymphadenopathy and supple Resp normal respiratory effort, no retractions, no use of accessory muscles and clear to auscultation bilaterally Cardio regular rate and regular rhythm Cardio Narrative: Occasional PVC's and PAC's noted on monitor. GI normal to inspection, nondistended, normoactive bowel sounds, soft to palpation, non-tender and non-distended Extremity Extremity Narrative: RLE painful with log-roll maneuver with inability to move RLE hip voluntarily or involuntarily without pain. Mild RLE limb shortening but no external rotation noted. Pluses 2+ throughout with no signs of vascular compromise or compartment sydrome. Skin Skin Narrative: Patient has no evidence of abscess, jaundice or rash. Neuro oriented x3, CN's II-XII intact bilaterally, moves all extremities and no focal motor deficits Sensorium / Orientation: awake, alert, oriented to person, oriented to place and oriented to time Psych affect normal Results Medical Records Data Attestation: I reviewed the patient's medical records Lab / Micro Data Attestation: I reviewed the patient's lab results. 12/23/23 05:10 12/23/23 05:10 Labs: Laboratory Results - last 24 hr 12/22/23 18:55: WBC 15.2 H, RBC 3.68 L, Hgb 11.0 L, Hct 34.8 L, MCV 94.6, MCH 29.9, MCHC 31.6 L, RDW Std Deviation 50.5 H, RDW Coeff of [place] 14.6, Plt Count 365, MPV 9.2, Immature Gran % (Auto) 1.200 H, Neut % (Auto) 40.9 L, Lymph % (Auto) 41.4 H, [place] % (Auto) 9.0, Eos % (Auto) 5.1 H, Baso % (Auto) 2.4 H, Absolute Neuts (auto) 6.2, Absolute Lymphs (auto) 6.30 H, Nucleated RBC % 0 Imaging [facility] Imaging Services [address] [place] [address] Chest 1 View (Portable) MR#: [id number] Acct: [id number] Name: ADDIS HAYNSE LY Rep #: [id number] : 1935 F 88 From: Erick Kinney MD PCP: Dr. Odalis Saravia MD Status: ADM IN Study: Chest 1 View (Portable) Date of Exam: 12/22/23 Exam# [id number] Ordering Dr: Umesh Velázquez MD EXAM: XR CHEST, 1 VIEW CLINICAL INDICATION: pre-op for hip fracture TECHNIQUE: Frontal view of the chest. COMPARISON: 11/08/2023 FINDINGS: LUNGS AND PLEURAL SPACES: Unremarkable. No consolidation or edema. No pneumothorax. No effusion. HEART: Unremarkable. Cardiac silhouette not enlarged. MEDIASTINUM: Central airways and mediastinal contour are unremarkable. BONES/JOINTS: There is a fracture of the proximal right humerus. SOFT TISSUES: Unremarkable. RAD/Chest 1 View (Portable) IMPRESSION: 1. No acute pulmonary abnormality. 2. Old fracture of the proximal right humerus. Electronically Signed: Erick Kinney MD at 19:39 EDT , CC: Dr. Odalis Saravia MD; Dr. Umesh Velázquez MD ~ Photo Producer: Signed [facility] Imaging Services [address] [place] [address] [id number] HIP, UNI W/ Pelvis 2-3 Views MR#: [id number] Acct: [id number] Name: ADDIS HAYNES LY Rep #: [id number] : 1935 F 88 From: Erick Kinney MD PCP: Dr. Odalis Saravia MD Status: ADM IN Study: HIP, UNI W/ Pelvis 2-3 Views Date of Exam: 12/22/23 Exam# [id number] Ordering Dr: Umesh Velázquez MD EXAM: XR RIGHT HIP WITH PELVIS WHEN PERFORMED, 2 OR 3 VIEWS CLINICAL INDICATION: fall TECHNIQUE: Two or three views of the right hip with pelvis when performed. COMPARISON: No relevant prior studies available. FINDINGS: BONES/JOINTS: There is a fracture of the right femoral neck. No destructive or sclerotic lesions. Note that overlapping bowel shadows may however obscure fine detail. Sacroiliac joint is unremarkable. No widening of the pubic symphysis. The articular structures are unremarkable. SOFT TISSUES: Unremarkable. No soft tissue swelling or gas. RAD/HIP, UNI W/ Pelvis 2-3 Views IMPRESSION: Fracture of the right femoral neck. Electronically Signed: Erick Kinney MD at 19:41 EDT , CC: Dr. Odalis Saravia MD; Dr. 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: (3) Fall: QUALIFIERS: Encounter type: initial encounter Qualified Code(s): W19.XXXA - Unspecified fall, initial encounter (4) Parkinson's disease dementia: QUALIFIERS: Dementia behavioral or psychological symptom: unspecified whether behavioral, psychotic, or mood disturbance or anxiety Dementia severity: unspecified severity Qualified Code(s): G20.A1 - Parkinson's disease without dyskinesia, without mention of fluctuations; F02.80 - Dementia in other diseases classified elsewhere, unspecified severity, without behavioral disturbance, psychotic disturbance, mood disturbance, and anxiety (5) Nonrheumatic mitral (valve) prolapse: (6) Nonrheumatic mitral valve regurgitation: (7) Nonrheumatic tricuspid valve regurgitation: (8) Premature ventricular contraction: (9) Premature atrial contractions: (10) History of lymphoma: PLAN: Plan 1. Right hip fracture after fall - Admit to general medical floor. Place right lower extremity in 5 pounds Flores's traction. Keep n.p.o. after midnight in preparation for ORIF in the a.m. Give Tylenol as needed for [id number] (level 1-5/10) pain or fever. Give morphine IV as needed for severe (level 6-10/10) pain. This patient has no absolute contraindications to medium-risk, medically necessary orthopedic surgery. Finally, we will consult Dr. Adrien Baez of the orthopedic service see this patient on rounds in the a.m. for further recommendations regarding ORIF without appreciated in advance. 2. Parkinson's disease; with underlying dementia, chronic disequilibrium and chronic orthostasis with recent fall and subsequent Right humeral fracture in October 2023 in the setting of chronic debility and previous adult FTT complicating #1 - Noted. Continue Sinemet and midodrine as previous. Patient is already on maximum dose midodrine at 10 mg p.o. 3 times daily with blood pressure on admission noted to be 166/87 mmHg. 3. History of nonrheumatic tricuspid valve regurgitation; with frequent PVCs and nonrheumatic mitral valve regurgitation and prolapse; with LVEF ~70% (June 2023) compounding #1 & #2 - Noted. Hopefully this recent information will help anesthesia optimize choice of agents for this elderly patient. 4. History of lymphoma; followed by Dr. Brooks of [facility] oncology with mild Leukocytosis of 15.2 with Left-shift 41.4% lymphocytes present on admission - Check UA with C&S. Check CBC daily and monitor closely for signs and symptoms of infection. 5. Listed allergy to PCN (rash) - We will attempt to avoid this class of agents. 6. Hyperlipidemia - Currently not on statin or other related agents. Check lipid profile. 7. History of TIA - Noted. Continue baby aspirin daily. 8. CKD; stage III - Stable. Check labs daily to ensure continued stability. 9. History of splenectomy - Noted. 10. Chronic normochromic normocytic anemia - Stable with hemoglobin of 11 g/dL present on admission with normal MCV of 94.6 fL. 11. History of parotid tumor - Noted. 12. History of atrial myxoma; s/p excision and Left pericardial patch (2000) - Noted with sternotomy wires evident on CXR. 13. History of vitamin B12 deficiency - Noted. Recheck B12 level this admission and continue MVI as previous. 14. History of laparoscopic cholecystectomy - Noted. 15. GERD - Currently untreated and without complaints at this time. Start Protonix if needed. 16. Osteoarthritis - Stable. 17. DVT prophylaxis - SCD on LLE only. We will avoid preoperative blood thinners in cases involving traumatic fracture due to increased risk of bleeding complications. Orthopedist to determine postoperative DVT prophylaxis regimen. Total time: Approximately 75 minutes. Charges/Coding Visit Charges Inpatient E&M: 15639 Init Hosp L3
[2023-12-22 19:21] LABS: Anion Gap 9 (5-15); BUN 29 mg/dL (7-18); BUN/Creat Ratio 22.8 RATIO (10-20); Calcium,Total 8.7 mg/dL (8.5-10.1); Chloride 103 mmol/L (98-107); Creatinine, Serum 1.27 mg/dL (0.55-1.02); EST Glomerular Filtration Rate 42 mL/min (>60); Est Glom Filt Rate - Afr Amer 51 mL/min (>60); Estimated Creatinine Clearance 22.42 ml/min; Glucose 92 mg/dL (74-106); Sodium Level 138 mmol/L (136-145)
[2023-12-22 19:27] VITALS: BP 161/90; PULSE 80; RESP 13; TEMP 36.4; O2SAT 100
[2023-12-22 19:31] LABS: Prothrombin Time (Protime)PT. 13.3 SECONDS (11.7-14.9)
[2023-12-22 19:35] LABS: Differential Comment SCANNED
[2023-12-22 19:57] VITALS: BP 145/79; PULSE 76; RESP 15; O2SAT 99
--- NOTE | 2023-12-22 20:11 | EKG12_ITS ---
Test Reason : Pre-Op Blood Pressure : / mmHG Vent. Rate : 087 BPM Atrial Rate : 087 BPM P-R Int : 184 ms QRS Dur : 082 ms QT Int : 370 ms P-R-T Axes : 072 090 016 degrees QTc Int : 445 ms Sinus rhythm with Premature atrial complexes Rightward axis Borderline ECG When compared with ECG of 29-NOV-2023 14:42, No significant change was found Confirmed by Eric Shearer ([id number]), technical editor LILIAN VILLEGAS ([id number]) on 12/25/2023 7:51:32 AM Referred By: Kim Confirmed By:Eric Shearer
[2023-12-22 20:44] VITALS: BP 171/94; PULSE 67; RESP 18; TEMP 36.6; O2SAT 100
[2023-12-22 20:50] VITALS: BMI 20.7
[2023-12-22] MEDS: MELATONIN 3 MG TABLET PO (21:45)
[2023-12-22] MEDS: Acetaminophen 325 MG Tablet 650 MG PO (21:45)
[2023-12-22] MEDS: 0.9% Normal Saline (1000mL) 1,000 ML 60 ML IV (21:45)
[2023-12-22] MEDS: Glycerin/Hypromellose/PEG400 15 ml Bottle 1 DRP OPHTHALMIC (21:46)
[2023-12-22 22:45] VITALS: O2SAT 96
[2023-12-22 23:35] LABS: Phosphorus 4.1 mg/dL (2.5-4.9)
--- NOTE | 2023-12-22 23:47 | PCM.PRE.AN2 ---
ASA Classification* ASA Classification ASA Classification: 3 Assessment & Plan Anesthesia* Anesthesia Assessment Anesthesia Assessment: Discussed sedation and/or anesthesia options, risks, benefits, and alternatives with patient/parents/legal guardian/POA. Questions invited. The patient/parents/legal guardian/POA seems to understand and agrees to proceed with anesthesia plan. Reviewed the physical assessment, medical history, allergy history and patient home medications list prior to surgery/procedure/anesthetic and documented any changes. Performed airway and anesthesia risk assessments. Anesthesia Type Anesthesia Type: General History Source History Obtained from:: Patient and Chart Anesthesia Focused Assessment* Temperature: 97.9 F Pulse Rate: 67 Blood Pressure: 171/94 Respiratory Rate: 18 Pulse Ox: 96 Oxygen Delivery Method: Nasal Cannula (2 L/min) Airway Assessment Mouth opens: >3 cm Mallampati Score: IV Teeth Condition: Intact and Chipped/Broken (Chipped tooth #9) Neck Range of motion (ROM): Limited ROM (Somewhat decreased extension) Pertinent Findings EKG Pertinent Findings:: November 29, 2023. Sinus rhythm with premature supraventricular contractions ECHO Pertinent Findings:: June 29, 2023. Ejection fraction is 70%. Pulmonary artery systolic pressure is 28 mmHg. Structurally normal valves Consults Pertinent Findings:: September 19, 2023 by Rekha. 1. 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 premature atrial contractions. Will add metoprolol. Chest Film Results Pertinent Findings:: December 22, 2023 no acute pulmonary disease processes. Focused Labs Anesthesia Preop lab: CBC WBC 19.5 K/mm3 (4.4-11.0) H 12/23/23 05:10 RBC 4.00 M/mm3 (4.2-5.4) L 12/23/23 05:10 Hgb 11.8 g/dL (12.0-15.0) L 12/23/23 05:10 Hct 37.6 % (37-47) 12/23/23 05:10 Plt Count 350 K/mm3 (150-450) 12/23/23 05:10 CHEMISTRY Potassium 4.3 mmol/L (3.5-5.1) 12/23/23 05:10 Sodium 137 mmol/L (136-145) 12/23/23 05:10 Magnesium 2.0 mg/dL (1.6-2.6) 12/22/23 18:55 Phosphorus 4.1 mg/dL (2.5-4.9) 12/22/23 18:55 BUN 26 mg/dL (7-18) H 12/23/23 05:10 Creatinine 1.08 mg/dL (0.55-1.02) H 12/23/23 05:10 Glucose 103 mg/dL (74-106) 12/23/23 05:10 POC Glucose 106 mg/dL (74-106) 11/08/23 08:47 TSH 2.47 uIU/mL (0.358-3.74) 12/23/23 05:10 COAG PT 13.3 SECONDS (11.7-14.9) 12/22/23 18:55 Pre-Assessment Diagnosis/Proposed Procedure Planned Operative Procedure(s): Right hip hemiarthroplasty Anesthesia History Anesthesia History - incident analyst: Anesthesia History - incident analyst Hx Hospitalization Any Problems With Anesthesia No 12/22/23 21:10 Cholinesterase deficiency No 12/22/23 21:10 You/Your Family Experience No 12/22/23 21:10 fever (hyperthermia) with Relationship Recent Exposure to Contagious No 12/22/23 21:10 Disease Does patient have nerve No 12/22/23 21:10 stimulator Patient instructed to have No 12/22/23 21:10 device shut off --Does patient have Pacemaker No 12/22/23 23:02 or ICD? When Was Last Pacemaker Check QUESTION #4 FULL TEXT: You/Your Family Experience fever (hyperthermia) with Anesthesia Last Oral Intake Last Oral intake: Last Oral Intake NPO since 23:00 12/22/23 23:02 Meds taken in AM with sips of water? Meds patient instructed to take am of surgery PONV PONV - incident analyst: PONV - incident analyst Female HX of Motion Sickness HX of N/V After Surgery Non-Smoker Duration of Surgery greater than 60 minutes Number of Risk Factors PONV Score Any additional information?: Yes Female: Yes HX of Motion Sickness: No HX of N/V After Surgery: No Non-Smoker: Yes Duration of Surgery greater than 60 minutes: Yes Number of Risk Factors: 3 PONV Score: Moderate Risk Height & Weight Height & Weight: Anesthesia: Height & Weight Height 4 ft 11.84 in 12/22/23 23:02 Weight: 48 kg 12/22/23 23:02 Body Mass Index (BMI) 20.7 12/22/23 23:02 Respiratory Assessment Respiratory Assessment - incident analyst: Respiratory Tract Infection Hx - incident analyst Hx Respiratory Tract Infection No 12/22/23 21:10 STOP Sleep Apnea STOP Sleep Apnea - incident analyst: STOP Sleep Apnea - incident analyst Hx Hypertension Yes 12/22/23 21:04 Hx Sleep Apnea No 12/22/23 21:04 CPAP BIPAP Do you snore loudly (louder No 12/22/23 21:04 than talking or can be heard Do you often feel tired/ No 12/22/23 21:04 fatigued/ sleepy during daytime? Has anyone observed you stop No 12/22/23 21:04 breathing during sleep? STOP Results Negative 12/22/23 21:04 QUESTION #5 FULL TEXT : Do you snore loudly (louder than talking or can be heard through closed doors)? 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 Specify any problems Hx of Preganancy in last 3 N/A 12/22/23 21:04 Months Nurse Filling Out Transfusion CSIGNORIN 12/22/23 21:04 & Questions: Date: 12/22/23 12/22/23 21:04 Time: 21:05 12/22/23 21:04 Patient unable to answer at this time (ie. confused, unrespo /Reproduction History /Reproductive History - incident analyst: /Reproductive Hx- incident analyst Hx Now No 12/22/23 21:10 Gestational Age (in weeks): EDC: Hx Hx Para Hx Section SAB Active Medications Active Medications: Current Medications Generic Name Dose Route Start Last Admin Trade Name Freq PRN Reason Stop Dose Admin Acetaminophen 650 mg 12/22/23 20:42 12/22/23 21:45 Acetaminophen 325 Mg Tablet PO 650 mg Q8H PRN PRN Administration Pain 1-5/10 or Fever Al Hydroxide/Mg Hydroxide 30 ml 12/22/23 20:42 Mag Hydrox/Al Hydrox/Simeth 30 Ml Udc PO Q6H PRN PRN Gastric Burning Aspirin 81 mg 12/23/23 08:00 12/22/23 22:26 Aspirin 81 Mg Tab.Chew PO Not Given BREAKFAST ARIA Carbidopa/Levodopa 2 tablet 12/23/23 07:00 Carbidopa/Levodopa 25/100 Tablet PO TIDAC ARIA Sodium Chloride 77.4 ml/ 0 ml 12/23/23 08:00 Ropivacaine 200 mg/ OPERA.SITE 12/23/23 08:01 Epinephrine HCl 0.6 mg/ X1 ONE Ketorolac Tromethamine 30 mg/ Morphine Sulfate 5 mg Glycerin/Hypromellose/Polyethylene 1 drp 12/22/23 22:00 12/22/23 21:46 Glycerin/Hypromellose/[id number] 15 Ml Bottle OPHTHALMIC 1 drp TID ARIA Administration Sodium Chloride 1,000 mls @ 60 mls/hr 12/22/23 19:51 12/22/23 21:45 IV 60 mls/hr .[id number] ARIA Administration Sodium Chloride 250 mls @ 15 mls/hr 12/22/23 20:44 IV .[id number] PRN Additional IVPB Infusion Sodium Chloride 250 mls @ 15 mls/hr 12/22/23 20:44 IV .[id number] PRN Saline Flush Cefazolin Sodium 2 gm/ Sodium 110 mls @ 150 mls/hr 12/23/23 07:00 Chloride IV 12/23/23 07:43 X1 ONE Magnesium Hydroxide 30 ml 12/22/23 20:42 Magnesium Hydroxide 30 Ml Udc PO DAILY PRN PRN Constipation Melatonin 3 mg 12/22/23 20:42 12/22/23 21:45 Melatonin 3 Mg Tablet PO 3 mg QHS PRN PRN Administration INSOMNIA Midodrine 10 mg 12/23/23 08:00 Midodrine Hcl 5 Mg Tablet PO TIDCM ARIA Morphine Sulfate 2 mg 12/22/23 20:42 Morphine 2 Mg/Ml Syringe IV Q4H PRN PRN Pain Score 6-10 Multivitamins 1 tablet 12/23/23 08:00 Multivitamins,Therapeutic Tablet PO DAILYCM ARIA Ondansetron HCl 4 mg 12/22/23 20:42 Ondansetron 4 Mg/2 Ml Vial IV Q8H PRN PRN NAUSEA/VOMITING Sodium Chloride 10 - 40 ml 12/22/23 20:44 0.9% Saline Lock 10 Ml Syringe IV UD PRN SALINE FLUSH 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 CKD (chronic kidney disease), stage III Anemia Falls Brain TIA Parkinson's disease Parotid tumor Lymphoma Parkinsons disease Premature ventricular contraction Hypertension Premature atrial contractions Hyperlipidemia History of atrial myxoma Nonrheumatic tricuspid valve regurgitation Nonrheumatic mitral valve regurgitation Nonrheumatic mitral (valve) prolapse Home Medications ?Medication ?Instructions ?Recorded ?Last Taken ?Type multivitamin 1 tab PO DAILY SUPPLEMENT 11/20/18 11/07/23 08:00 History carbidopa 25 mg-levodopa 100 mg 2 tab PO TID PARKINSONS 01/05/23 11/08/23 05:40 History tablet aspirin 81 mg chewable tablet 81 mg PO BREAKFAST HEART HEALTH 1 06/29/23 11/07/23 08:00 Rx month #30 tabs VITAL TEARS 1 drp ophthalmic (eye) TID DRY EYES 09/08/23 11/08/23 05:40 History midodrine 5 mg tablet 10 mg (2 x 5 mg) PO TIDCM BLOOD 09/14/23 11/07/23 07:45 Rx PRESSURE #0 tabs acetaminophen 325 mg tablet 650 mg PO Q8 PRN fever or pain 12/22/23 Unknown History Allergy/AdvReac Type Severity Reaction Status Date / Time Penicillins Allergy Rash Verified 12/22/23 17:58 risperidone (From Risperdal) AdvReac Severe Low blood Verified 12/22/23 17:58 pressure tramadol AdvReac Other Verified 12/22/23 17:58 Family History Father Heart disease CHF (congestive heart failure) Mother No problems noted. Surgical History History of facial surgery History of splenectomy History of laparoscopic cholecystectomy Social History household members: none housing: assisted living facility Smoking Status: Never smoker alcohol intake: current details: occasional substance use type: does not use Review of Systems (Anesthesia) ROS Narrative System reviewed and no additional complaints, except as documented.
[2023-12-22 23:49] VITALS: BP 171/94; PULSE 67; RESP 18; TEMP 36.6; O2SAT 96
[2023-12-23] VITALS (15 sets, daily range): BP systolic 96–146; BP diastolic 55–85; PULSE 66–98; RESP 15–18; TEMP 36.2–36.9; O2SAT 90–100; BMI 20.7
--- NOTE | 2023-12-23 | IMM_PTH ---
PATIENT: ADDIS CARRENO LOC: MS3 U#:[id number] AGE/SX: 88/F ROOM: [facility] RE12/22/[address]: Dr. Naresh Blanchard DO : 1935 BED: 1 DIS: 12/25/2023 SPEC #: [id number] RECD: 12/27/23 12:41 STATUS: SOUT REQ #: [id number] TONYA: 12/23/23 00:[address]: Adrien Baez DEPT: IMMUNOHISTOCHEMISTRY RECD BY: Hair Medina ENTERED: 12/27/23 12:42 SP TYPE: IMMUNO OTHR DR: DO Dr. Ethan Hickman DO Dr. Efewongbe Oleghe, MD Dr. Nicholas F Kotsonis, MD Tissues: Hip, NOS Procedures: BCL-2 (add) BCL-6 (add) CD10 (add) CD20 (add) CD23 (add) CD3 (add) CD43 (add) CD45 (add) CD5 (add) CD79A (add) CK8 (add) CYCLIN (add) KI-67 (add) Pankeratin (initial) PHYSICIAN & INSTITUTION [place] [address] SPECIMEN INFORMATION: Tissue Source: Right femoral head Clinical Info: Fracture of hip, right ,closed Specimen Number: [id number] CPT code: 58831,85951t75 METHODOLOGY: Deparaffinized sections of prefer/formalin-fixed tissue or PAP/DQ stained slides are incubated with monoclonal/polyclonal antibodies/oligonucleotide probes. Localization is made via biotin free immunoperoxidase method. Appropriate controls are performed and reacted as expected. Results on target cell population are indicated in the following table: RESULTS: ANTIBODY / CLONE RESULT AE1-3 (AE1/AE3/PCK26) negative CK8 (34wxedD57) negative CD3 (PS1) negative CD5 (SP10) negative CD20 (L26) positive CD43 (L60) negative CD45 (RP2/18) positive CD79a (11E3) positive CD10 (56C6) negative CD23 (1B12) negative BCL-2 (bcl-2/100/D5) positive BCL-6 (KR517B/A8) negative Cyclin D1/BCL-1 (SP4) negative Ki-67 (30-9) positive, very low, <1% These tests were developed and their performance characteristics determined by [facility]. They may not have been cleared or approved by the U.S. Food and Drug Administration. The FDA has determined that such clearance or approval is not necessary. The above immunohistochemical/dualISH markers are ordered and reviewed by the Pathologist. INTERPRETATION: Right femoral head, hemiarthroplasty: Atypical lymphoid aggregates. ALIYAH/ 12/31/2023
[2023-12-23 00:38] LABS: Bacteria 0 SEEN /hpf (None Seen); Mucous, Urine 0 SEEN /hpf (<or=2+); Red Blood Cells-Urine 0 SEEN /hpf (0-5); Squamous Epithelial Cells - UA 0 SEEN /hpf (5-10); White Blood Cells 0 SEEN /hpf (0-5)
[2023-12-23 01:35] LABS: Color, Urine Yellow (Yellow); Glucose, Dipstick Normal (Normal); Ketone-Dipstick Negative (Negative); Leukocyte Esterase-Dipstick Negative /ul (Negative); Nitrite-Dipstick Negative (Negative); Occult Blood-Urine Negative /ul (Negative); Protein-Dipstick Negative (Negative); Urine Bilirubin Dipstick Negative (Negative); Urine Clarity Clear (Clear); Urine Urobilinogen Normal (Normal)
[2023-12-23] MEDS: Glycerin/Hypromellose/PEG400 15 ml Bottle 1 DRP OPHTHALMIC ×3 (05:11→21:40)
[2023-12-23] MEDS: Morphine 2 MG/ML Syringe IV (05:14)
[2023-12-23] MEDS: 0.9% Saline Lock 10 ML Syringe IV (05:15)
[2023-12-23 05:50] LABS: Absolute Lymphocyte Count 5.12 X10^3/uL (0.83-4.51); Absolute Neutrophil Count 11.7 X10^3/uL (2.0-7.7); Basophil# 0.32 X10^3/uL; Basophil% 1.6 % (0-1); Eosinophil# 0.64 X10^3/uL; Eosinophils% 3.3 % (0-5); Hematocrit 37.6 % (37-47); Hemoglobin 11.8 g/dL (12.0-15.0); Lymphocyte # 5.12 X10^3/ul (0.83-4.51); Lymphocyte % 26.3 % (19-41); Mean Corp Hgb Conc 31.4 g/dL (32-36); Mean Corpuscular Hgb 29.5 pg (27.0-32.0); Monocyte# 1.64 X10^3/uL; Monocyte% 8.4 % (0-10); NRBC Flagged by Analyzer 0 % (0-5); Neutrophil # 11.68 X10^3/uL (2.7-7.7); Neutrophil % 59.9 % (47-70); POSITIVE DIFFERENTIAL YES; Platelet Count 350 K/mm3 (150-450); RBC Distribution Width CV 14.5 % (11.6-14.6); RBC Distribution Width SD 50.2 fl (35.1-43.9); White Blood Count 19.5 K/mm3 (4.4-11.0)
[2023-12-23 06:00] LABS: Differential Indicated SCAN CRITERIA MET
[2023-12-23 06:40] LABS: AST(SGOT) 32 U/L (15-37); Alanine Aminotransfer ALT/SGPT 14 U/L (13-56); Albumin, Serum 3.2 g/dL (3.2-5.0); Alkaline Phosphatase 159 U/L (45-117); Anion Gap 6 (5-15); BUN 26 mg/dL (7-18); BUN/Creat Ratio 24.1 RATIO (10-20); Calcium,Total 8.8 mg/dL (8.5-10.1); Chloride 105 mmol/L (98-107); Cholesterol 229 mg/dL (200); Creatinine, Serum 1.08 mg/dL (0.55-1.02); EST Glomerular Filtration Rate 51 mL/min (>60); Est Glom Filt Rate - Afr Amer 62 mL/min (>60); Estimated Creatinine Clearance 26.36 ml/min; Globulin 3.3 g/dL (2.2-4.2); Glucose 103 mg/dL (74-106); High Density Lipoprotein 67 mg/dL; Potassium 4.3 mmol/L (3.5-5.1); Protein, Total 6.5 g/dL (6.4-8.2); Sodium Level 137 mmol/L (136-145); Thyroid Stim Hormone (TSH) 2.47 uIU/mL (0.358-3.74); Triglycerides 93 mg/dL; Very Low Density Lipoprotein 19 mg/dL (5-40)
--- NOTE | 2023-12-23 07:52 | CON.PCM_ITS ---
Assessment & Plan Assessment/Plan (1) Displaced fracture of right femoral neck: PLAN: Dr. Adrien Baez did discuss and review all treatment options at length with the patient her son and [id number] including surgical and nonsurgical treatment options. At this time they do wish to proceed with cemented right hip hemiarthroplasty. Potential risk benefits and complications of this procedure were reviewed in detail including but not limited to infection or blood vessel damage persistent pain numbness tingling paresthesias blood clot pulmonary embolism and the requirement for possible further surgery they expressed full understanding have no further questions for the doctor do agree to proceed with the above-stated procedure and have signed the appropriate surgery consent form Will likely plan for aspirin 81 mg twice daily x 1 month for DVT prophylaxis in the postoperative period x 1 month. Also discussed and reviewed hip dislocation precautions. All questions answered. HPI Consult Data Date of Consult: 12/23/23 HPI Narrative Reason for Consultation: Right hip fracture resulting from fall HPI Narrative: ADDIS CARRENO, is a 88 F who presented to [facility] emergency department yesterday by squad. She is a resident of [facility]. She ambulates with a walker primarily as a result of Parkinson's disease. She had some change fall out of her pocket she bent over to pick it up she had increased pain and fell to the ground she was unable to stand. No head injury no loss of consciousness. Hip was normal and pain-free prior to the injury. Upon arrival to [facility] emergency department x-rays revealed a femoral neck fracture orthopedics was consulted. Patient denies a history of DVT or pulmonary embolism. Denies prescription anticoagulant use. She does take baby aspirin daily. She does have a history of TIA and early onset dementia. She was recently under the care for nonsurgical management of a humeral neck fracture on the right shoulder by Dr. Osiel Chi that healed uneventfully without complication. Patient currently complains of right hip pain no knee ankle or foot pain. No numbness or tingling into the feet no fevers chills or other signs of infection. Patient does report history of penicillin allergy resulting in rash. 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 CKD (chronic kidney disease), stage III Anemia Falls Brain TIA Parkinson's disease Parotid tumor Lymphoma Parkinsons disease Premature ventricular contraction Hypertension Premature atrial contractions Hyperlipidemia History of atrial myxoma Nonrheumatic tricuspid valve regurgitation Nonrheumatic mitral valve regurgitation Nonrheumatic mitral (valve) prolapse Home Medications ?Medication ?Instructions ?Recorded ?Last Taken ?Type multivitamin 1 tab PO DAILY SUPPLEMENT 11/20/18 11/07/23 08:00 History carbidopa 25 mg-levodopa 100 mg 2 tab PO TID PARKINSONS 01/05/23 11/08/23 05:40 History tablet aspirin 81 mg chewable tablet 81 mg PO BREAKFAST HEART HEALTH 1 06/29/23 11/07/23 08:00 Rx month #30 tabs VITAL TEARS 1 drp ophthalmic (eye) TID DRY EYES 09/08/23 11/08/23 05:40 History midodrine 5 mg tablet 10 mg (2 x 5 mg) PO TIDCM BLOOD 09/14/23 11/07/23 07:45 Rx PRESSURE #0 tabs acetaminophen 325 mg tablet 650 mg PO Q8 PRN fever or pain 12/22/23 Unknown History Allergy/AdvReac Type Severity Reaction Status Date / Time Penicillins Allergy Rash Verified 12/22/23 17:58 risperidone (From Risperdal) AdvReac Severe Low blood Verified 12/22/23 17:58 pressure tramadol AdvReac Other Verified 12/22/23 17:58 Family History Father Heart disease CHF (congestive heart failure) Mother No problems noted. Surgical History History of facial surgery History of splenectomy History of laparoscopic cholecystectomy Social History household members: none housing: assisted living facility Smoking Status: Never smoker alcohol intake: current details: occasional substance use type: does not use ROS ROS Narrative Review of systems documented electronically in the medical record personally reviewed by myself pertinent positive and negatives documented above Physical Exam Narrative Patient is resting comfortably in bed during exam no acute distress at rest breathing easily without respiratory distress inspection of right lower extremity is with shortening and external rotation. Left hip without deformity. Gentle mobility left hip without pain. Right hip mobility deferred due to fracture and pain. Right knee ankle and foot without tenderness. Negative Ashley bilaterally without signs of DVT. Patient is able to actively plantar and dorsiflex bilateral ankles against resistance neurovascularly intact pedal pulses present equal bilaterally. Lab / Micro Data 12/23/23 05:10 12/23/23 05:10 Labs: Laboratory Results - last 24 hr 12/22/23 18:55: WBC 15.2 H, RBC 3.68 L, Hgb 11.0 L, Hct 34.8 L, MCV 94.6, MCH 29.9, MCHC 31.6 L, RDW Std Deviation 50.5 H, RDW Coeff of [place] 14.6, Plt Count 365, MPV 9.2, Immature Gran % (Auto) 1.200 H, Neut % (Auto) 40.9 L, Lymph % (Auto) 41.4 H, [place] % (Auto) 9.0, Eos % (Auto) 5.1 H, Baso % (Auto) 2.4 H, Absolute Neuts (auto) 6.2, Absolute Lymphs (auto) 6.30 H, Nucleated RBC % 0, Differential Comment SCANNED, PT 13.3, INR 1.0, Sodium 138, Potassium 4.0, Chloride 103, Carbon Dioxide 26.0, Anion Gap 9, BUN 29 H, Creatinine 1.27 H, Estim Creat Clear Calc 22.42, Est GFR (MDRD) Af Amer 51 L, Est GFR (MDRD) Non-Af 42 L, BUN/Creatinine Ratio 22.8 H, Glucose 92, Calcium 8.7, Phosphorus 4.1, Magnesium 2.0, Blood Type A POSITIVE, Antibody Screen NEGATIVE 12/23/23 00:29: Urine Color Yellow, Urine Clarity Clear, Urine pH 7.0, Ur Specific [place] 1.010, Urine Protein Negative, Urine Glucose (UA) Normal, Urine Ketones Negative, Urine Occult Blood Negative, Urine Nitrite Negative, Urine Bilirubin Negative, Urine Urobilinogen Normal, Ur Leukocyte Esterase Negative, Urine RBC 0 SEEN, Urine WBC 0 SEEN, Ur Squamous Epith Cells 0 SEEN, Urine Bacteria 0 SEEN, Urine Mucus 0 SEEN 12/23/23 05:10: WBC 19.5 H, RBC 4.00 L, Hgb 11.8 L, Hct 37.6, MCV 94.0, MCH 29.5, MCHC 31.4 L, RDW Std Deviation 50.2 H, RDW Coeff of [place] 14.5, Plt Count 350, MPV 10.0, Immature Gran % (Auto) 0.500, Neut % (Auto) 59.9, Lymph % (Auto) 26.3, [place] % (Auto) 8.4, Eos % (Auto) 3.3, Baso % (Auto) 1.6 H, Absolute Neuts (auto) 11.7 H, Absolute Lymphs (auto) 5.12 H, Nucleated RBC % 0, Sodium 137, Potassium 4.3, Chloride 105, Carbon Dioxide 26.0, Anion Gap 6, BUN 26 H, C reatinine 1.08 H, Estim Creat Clear Calc 26.36, Est GFR (MDRD) Af Amer 62, Est GFR (MDRD) Non-Af 51 L, BUN/Creatinine Ratio 24.1 H, Glucose 103, Calcium 8.8, Total Bilirubin 0.60, AST 32, ALT 14, Alkaline Phosphatase 159 H, Total Protein 6.5, Albumin 3.2, Globulin 3.3, Albumin/Globulin Ratio 1.0, Triglycerides 93, C holesterol 229 H, LDL Cholesterol 143 H, VLDL Cholesterol 19, HDL Cholesterol 67, TSH 2.47 Imaging Radiology Impression Chest X-Ray 12/22/23 18:35 IMPRESSION: 1. No acute pulmonary abnormality. 2. Old fracture of the proximal right humerus. Electronically Signed: Erick Kinney MD at 19:39 EDT , Hip/Pelvis X-Ray 12/22/23 18:35 IMPRESSION: Fracture of the right femoral neck. Electronically Signed: Erick Kinney MD at 19:41 EDT , Above imaging personally reviewed by myself for full details please refer to report in electronic medical record
--- NOTE | 2023-12-23 08:05 | RAD_ITS ---
STUDY: X-RAY - PELVIS AND RIGHT HIP REASON FOR EXAM: Female, 88 years old. Postop from hip replacement surgery TECHNIQUE: 3 views of the pelvis and hip. COMPARISON: Yesterday FINDINGS: Patient is postop from right hip replacement surgery. Components demonstrate anatomic alignment. No plain film evidence of postoperative complication. Normal postoperative soft tissue swelling and subcutaneous emphysema noted. 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 Diffuse vascular calcifications noted. RAD/Hip Min 2 Views (Portable) IMPRESSION: Replaced right hip joint demonstrates anatomic alignment, no plain film evidence of postoperative complication Electronically Signed: Jayden Mccormack MD at 11:36 EDT ,
[2023-12-23] MEDS: Cefazolin 2 GM in 0.9% Normal Saline (100mL Bag) 100 ML IV (08:19)
--- NOTE | 2023-12-23 08:20 | FEM_PTH ---
PATIENT: ADDIS CARRENO LOC: MS3 U#:[id number] AGE/SX: 88/F ROOM: [facility] RE12/22/[address]: Dr. Naresh Blanchard DO : 1935 BED: 1 DIS: 12/25/2023 SPEC #: [id number] RECD: 12/24/23 10:15 STATUS: KORY RERuby #: [id number] TONYA: 12/23/23 08:[address]: Adrien Baez DEPT: SURGICAL PATHOLOGY RECD BY: Gunnar Alegre ENTERED: 12/24/23 11:12 SP TYPE: FEM HEAD OTHR DR: DO Dr. Ethan Hickman DO Dr. Efewongbe Oleghe, MD Dr. Nicholas F Kotsonis, MD Tissues: Femoral region, NOS Procedures: Decalcification bone/plaque Surgery Specimen Level V HEADER OPERATION: Hemiarthroplasty, hip cemented PRE-OP DIAGNOSIS: Fracture of hip, right, closed TISSUE SUBMITTED: Right femoral head MICROSCOPIC DIAGNOSIS Right hip bone and soft tissue, total hip replacement/resection: Femoral head and detached pieces of bone with focal area hemorrhage, clinically fractured hip. Atypical lymphoid aggregates. See comment. ALIYAH: 12/31/2023 COMMENT Immunohistochemistry ([id number]) supports the above diagnosis. If there is a high suspicion of lymphoma, biopsy of lymph node is suggested for definite diagnosis, if clinically indicated. Clinical correlation and appropriate follow up are necessary. MICROSCOPIC DESCRIPTION Slides are reviewed. GROSS DESCRIPTION Received is one container labeled with the patient's name and designated Right femoral head and tissue. The specimen consists of a castro femoral head measuring 4.0 x 4.5 x 3.0 cm. The articular surface is smooth. Resection margin is irregular and hemorrhagic. Also present in the specimen container are multiple detached pieces of bone measuring in aggregate 6.5 x 6.0 x 2.5 cm. No soft tissue is identified. Contact Agent sections are submitted in three cassettes as follows: 1 and 2 - detached pieces of bone after decalcification, 3 - femoral head after decalcification. / ALIYAH/ 12/24/2023 TC:5 CPT: 23714, 99359
[2023-12-23] MEDS: TXA 1000mg in NS100 100ml (IVPB at Incision) 660 MG IV (08:39)
[2023-12-23] MEDS: JPS (Morphine 10mg/ml) OPERA.SITE (08:51)
--- NOTE | 2023-12-23 09:41 | PN.HOSP_ITS ---
Subjective Subjective Plan for operative repair today. Pain is controlled Objective Data Objective Data Vital Signs: Vital Signs Temp Pulse Resp BP Pulse Ox O2 Del Method O2 Flow Rate 98.3 F 82 16 146/85 H 96 Nasal Cannula 2 12/23/23 04:22 12/23/23 04:22 12/23/23 04:22 12/23/23 04:22 12/23/23 04:22 12/23/23 04:22 12/23/23 04:22 Oxygen Flow Rate (L/min) 2 Oxygen Delivery Method Nasal Cannula Weight: 105 lb 13.15 oz Body Mass Index (BMI) 20.7 Intake & Output: Intake and Output for Last 24 Hours 12/22/23 12/23/23 12/24/23 03:59 03:59 03:59 Intake Total 240 / 240 220 / 220 Output Total 250 / 250 200 / 200 Balance -10 10 Lab / Micro Data 12/23/23 05:10 12/23/23 05:10 Labs: Laboratory Results - last 24 hr 12/22/23 18:55: WBC 15.2 H, RBC 3.68 L, Hgb 11.0 L, Hct 34.8 L, MCV 94.6, MCH 29.9, MCHC 31.6 L, RDW Std Deviation 50.5 H, RDW Coeff of [place] 14.6, Plt Count 365, MPV 9.2, Immature Gran % (Auto) 1.200 H, Neut % (Auto) 40.9 L, Lymph % (Auto) 41.4 H, [place] % (Auto) 9.0, Eos % (Auto) 5.1 H, Baso % (Auto) 2.4 H, Absolute Neuts (auto) 6.2, Absolute Lymphs (auto) 6.30 H, Nucleated RBC % 0, Differential Comment SCANNED, PT 13.3, INR 1.0, Sodium 138, Potassium 4.0, Chloride 103, Carbon Dioxide 26.0, Anion Gap 9, BUN 29 H, Creatinine 1.27 H, Estim Creat Clear Calc 22.42, Est GFR (MDRD) Af Amer 51 L, Est GFR (MDRD) Non-Af 42 L, BUN/Creatinine Ratio 22.8 H, Glucose 92, Calcium 8.7, Phosphorus 4.1, Magnesium 2.0, Blood Type A POSITIVE, Antibody Screen NEGATIVE 12/23/23 00:29: Urine Color Yellow, Urine Clarity Clear, Urine pH 7.0, Ur Specific Sylvester 1.010, Urine Protein Negative, Urine Glucose (UA) Normal, Urine Ketones Negative, Urine Occult Blood Negative, Urine Nitrite Negative, Urine Bilirubin Negative, Urine Urobilinogen Normal, Ur Leukocyte Esterase Negative, Urine RBC 0 SEEN, Urine WBC 0 SEEN, Ur Squamous Epith Cells 0 SEEN, Urine Bacteria 0 SEEN, Urine Mucus 0 SEEN 12/23/23 05:10: WBC 19.5 H, RBC 4.00 L, Hgb 11.8 L, Hct 37.6, MCV 94.0, MCH 29.5, MCHC 31.4 L, RDW Std Deviation 50.2 H, RDW Coeff of [place] 14.5, Plt Count 350, MPV 10.0, Immature Gran % (Auto) 0.500, Neut % (Auto) 59.9, Lymph % (Auto) 26.3, [place] % (Auto) 8.4, Eos % (Auto) 3.3, Baso % (Auto) 1.6 H, Absolute Neuts (auto) 11.7 H, Absolute Lymphs (auto) 5.12 H, Nucleated RBC % 0, Sodium 137, Potassium 4.3, Chloride 105, Carbon Dioxide 26.0, Anion Gap 6, BUN 26 H, C reatinine 1.08 H, Estim Creat Clear Calc 26.36, Est GFR (MDRD) Af Amer 62, Est GFR (MDRD) Non-Af 51 L, BUN/Creatinine Ratio 24.1 H, Glucose 103, Calcium 8.8, Total Bilirubin 0.60, AST 32, ALT 14, Alkaline Phosphatase 159 H, Total Protein 6.5, Albumin 3.2, Globulin 3.3, Albumin/Globulin Ratio 1.0, Triglycerides 93, C holesterol 229 H, LDL Cholesterol 143 H, VLDL Cholesterol 19, HDL Cholesterol 67, TSH 2.47 Radiography Diagnostic Testing: Radiology Impression Chest X-Ray 12/22/23 18:35 IMPRESSION: 1. No acute pulmonary abnormality. 2. Old fracture of the proximal right humerus. Electronically Signed: Erick Kinney MD at 19:39 EDT , Hip/Pelvis X-Ray 12/22/23 18:35 IMPRESSION: Fracture of the right femoral neck. Electronically Signed: Erick Kinney MD at 19:41 EDT , Physical Exam Narrative General: Alert, Oriented x3, Cooperative, No apparent distress HEENT: Atraumatic, PERRLA, EOMI, Normocephalic Oral: Moist Mucosa Neck: Supple, No JVD Lungs: Diminished, Normal air movement, No rhonchi, No wheeze, No rales Cardiovascular: Regular rate, Regular Rhythm, Normal S1, Normal S2, No murmurs Abdomen: Soft, Non Tender, Non-Distended, No Hepato-splenomegaly Extremities: No edema, Capillary Refill Less than 3 Seconds Skin: No rashes, No breakdown Musculoskeletal: Tenderness to palpation of right lower extremity Neurological: No focal neurological deficits, Motor Exam 5/5 strength throughout, Sensory exam intact to light touch and pain Psych/Mental Status: Normal Affect, Appropriate Skin Skin Narrative: Patient has no evidence of abscess, jaundice or rash. Assessment & Plan Assessment/Plan (1) Fracture of hip, right, closed: QUALIFIERS: Encounter type: initial encounter Qualified Code(s): S72.001A - Fracture of unspecified part of neck of right femur, initial encounter for closed fracture (2) Fall: QUALIFIERS: Encounter type: initial encounter Qualified Code(s): W19.XXXA - Unspecified fall, initial encounter PLAN: Plan 1. Right hip fracture after mechanical fall in the setting of Parkinson's disease with underlying dementia ? Plan for operative repair today ? PT/OT ? Will likely need placement on discharge ? Will consult case management ? Continue with her home Parkinson's medications as well as midodrine as she has had issues with hypotension from medication side effects in the past DVT: SCDs Charges/Coding Visit Charges Inpatient E&M: 64613 Subs Hosp L2
[2023-12-23] MEDS: TXA 1000mg in NS100 100ml (IVPB at Closure) 660 MG IV (09:48)
--- NOTE | 2023-12-23 09:48 | OP.PCM_ITS ---
Problems Associated Problem List Diagnoses (1) Displaced fracture of right femoral neck: Operative Report Date of Procedure: 12/23/23 Preoperative diagnosis: Right hip displaced femoral neck fracture Postoperative diagnosis: Same Operation: Right hip cemented hemiarthroplasty Surgeon: Dr. Adrien Baez MD Used Car Sales Manager: Lyudmila Leary PA-C EBL 150 Fluid in 700 Anesthesia: General Anesthesiologist; Dr. Pyle Special medications: IV [Ancef] 2 g, 1 g Tranexamic acid IV x 2 Indications for surgery : Patient is a (88) -year-old female that fell yesterday fracturing the involved hip. Appropriate informed consent was obtained and signed. Appropriate medical workup was performed preoperatively and patient was deemed safe for surgery by the anesthesia department human resources benefits assistant, NANNETTE was utilized throughout the entire procedure. They were vital in helping with patient positioning, holding of retractors, exposing the tissues adequately for safe completion of the procedure including cutting of the bone, helping rotary drier operator appropriate alignment and sizing of the c omponents, implantation of the components, as well as wound closure, bandage application, and safe patient transfer. Without department assistant, physician parts room assistant, surgical time would have been significantly increased, and surgical outcome would have been less optimal. Operative findings: Patient had displaced comminuted femoral neck fracture. We used a Howes Accolade C stem size #5 cemented. Bipolar 45 mm femoral head with a +0 neck length. 2 batches of antibiotic tobramycin cement were utilized. this reproduced there anatomy nicely. Clinically good leg lengths were note d. Good hip stability through range of motion with no undue pistoning. Standard wound closure in layers, followed by vinayak, followed by Mepilex dressing Details of procedure: Patient was taken to the operating room and transferred to the operating table. Given appropriate anesthetic agent by that department. Patient was then rolled into a lateral decubitus position with the involved painful hip up in the air. Appropriate timeouts had been performed. Hip had been appropriately marked with my initials. Padded anterior and posterior position was utilized. Axillary roll placed. JENNIFER hose and SCDs on the nonoperative limb utilized throughout the procedure. Operative lower extremity was prepped padded and draped in the usual orthopedic sterile fashion for the procedure. I injected the pain relieving solution in the standard sterile technique of the soft tissues of the hip carefully. Incision was made curving over the tip of the greater trochanter posteriorly. Full thickness skin flaps are raised down on the fascia salvatore. Fascia salvatore was opened in length with our incision. Charnley self-retaining hip retractor was carefully placed by the surgeon. Leg was appropriately rotated by the parts room assistant. Retractor was used to lift the abductors anteriorly to visualize the piriformis tendon and external rotators. Piriformis tendon and external rotators released off the greater trochanter with the Bovie. Tagging suture was placed in each of these separately. We then split the tissue superior to the piriformis tendon through capsule and onto the pelvis. Acetabular labrum was preserved. Retractors were carefully placed around the femoral neck. Displaced unstable femoral neck fracture identified. cutting guide was utilized to map out the proposed cut approximately 1 fingerbreadth above the lesser trochanter. This femoral neck cut was carried out with a saw. Fractured femoral head removed from the acetabulum and measured and inspected. Appropriate trial was utilized. A proximal femoral elevator utilized. We used a sharp awl entering down inside the bone of the proximal femur. Utilized the [employer] cutting osteotome the proximal lateral greater trochanteric region. The fragment removed. Broaching was then done from the smallest broach, upto the appropriate size. Good stability was confirmed. We then trialed the construct with a standard neck length and appropriate sized femoral head. We were happy with the construct. Good stability to flexion, rotation. At this point trials removed. 2 full batches of bone cement were mixed. 2 sponges were placed in the acetabulum we prepared the canal with brushing. Cement restrictor was placed down to the appropriate depth. It was thoroughly irrigated clean and dry. When the cement was as the appropriate texture, we pressurized cement down in the femoral canal. The appropriate size stem then hammered into the proximal femur and seated down to a similar position as the trial had. Excess bone cement removed. Stem was held still while cement fully hardened. Pain relieving solution was injected while this was occurring. The cement was fully hardened, sponges were removed from the acetabulum. We now again trialed and appropriate neck length decided upon. It was then opened. Now impacted the appropriate sized femoral head, neck construct onto the clean dried trunion. Was noted to be stable. Hip was inspected, and joint was reduced for a final time. Good hip stability and leg lengths noted. This was then irrigated with saline and cleaned. Next the remainder of the pain relieving solution was injected carefully throughout the soft tissues of the hip joint. Closure was carried out with a combination of #1 Vicryl repairing the hip capsule as well as piriformis tendon and external rotators to bone, #1 vvicryl and running #2 strata fix in the fascia salvatore, followed by mid layer #1 Vicryl with #1 strata fix running. Next running 0 strata fix, followed by skin stap les, Xeroform, Mepilex dressing. We placed JENNIFER hose and SCD on the operative leg. Patient awoken from the anesthetic and transferred back to room bed in recovery room in satisfactory condition. Patient will be admitted to the hospital. Hospitalist service will continue to manage the medical issues. Hopeful discharge to home or ECF in 2-3 days. This note was generated with [employer] dictation software. It may contain incorrect words, spelling, and punctuation that were not noted in checking the note before signing.
[2023-12-23 09:52] LABS: Differential Comment SCANNED
--- NOTE | 2023-12-23 10:41 | PCM.POST.ANE ---
Anesthesia: Postop Eval I Current Vital Signs Temperature: 97.2 F Pulse Rate: 92 Blood Pressure: 110/59 Respiratory Rate: 18 Pulse Ox: 93 Oxygen Delivery Method: Simple Mask (Oxygen is at 4 L/min) Assessment Airway patent: Yes Spontaneous unlabored respirations: Yes Mental status: Asleep (Arousable) nausea: No Vomiting: No Anesthesia Complication: No Fluid Hydration Crystalloid volume administer (ml): 1,000 Total IV fluid infused: 1,000 Progress Note Anesthesia document: Postop Eval 1 completed: Yes
[2023-12-23] MEDS: 0.9% Normal Saline (1000mL) 1,000 ML 60 ML IV (10:48)
--- NOTE | 2023-12-23 11:24 | PCM.POSTANE2 ---
Anesthesia Postop Eval I Sum Postop Eval Completion status Anesthesia document: Postop Eval 1 completed: Yes Anesthesia Postop Eval I Summary Anesthesia Postop Eval I Summary: Anesthesia Postop Eval I: Assessment Summary Airway patent Yes 12/23/23 10:45 Spontaneous unlabored Yes 12/23/23 10:45 respirations Mental status Asleep - Arousable 12/23/23 10:45 nausea No 12/23/23 10:45 Vomiting No 12/23/23 10:45 Anesthesia Postop Eval I: Fluid Summary Crystalloid volume administer 1,000 12/23/23 10:45 (ml) Colloids volume administered ( ml) Blood Product volume administered (ml) Total IV fluid infused 1,000 12/23/23 10:45 Anesthesia Postop Eval I: Summary Notes Anesthesia Complication No 12/23/23 10:45 Anesthesia Complication Comment: Post-operative progress note Anesthesia: Postop Eval II Evaluation Mental status: Calm and Asleep (Arousable) Pain Level: 1 nausea: No Vomiting: No Complications Anesthesia Complication: No
[2023-12-23] MEDS: Menthol/Lanolin/Calamine/Znox 113 GM Tube 1 APPLIC TOPICAL ×2 (11:55→21:40)
[2023-12-23] MEDS: Acetaminophen 500 MG Tablet 1000 MG PO ×2 (13:21→21:41)
[2023-12-23] MEDS: Cefazolin 1 GM/50 ML BAG IV ×2 (16:21→23:19)
[2023-12-23] MEDS: Midodrine HCl 5 MG Tablet 10 MG PO (16:23)
[2023-12-23] MEDS: Carbidopa/Levodopa 25/100 Tablet PO (16:23)
[2023-12-23] MEDS: Aspirin 81 MG TAB.CHEW PO (21:40)
[2023-12-23] MEDS: Senna/Docusate Sodium 1 Tablet 2 TABLET PO (21:41)
[2023-12-23] MEDS: MELATONIN 3 MG TABLET PO (22:05)
[2023-12-23] MEDS: Ensure Plus High Protein 120 ML LIQUID PO (22:05)
[2023-12-24] VITALS (9 sets, daily range): BP systolic 96–147; BP diastolic 62–74; PULSE 74–100; RESP 16–20; TEMP 36.6–36.9; O2SAT 89–95; BMI 21.4
[2023-12-24] MEDS: Carbidopa/Levodopa 25/100 Tablet PO ×3 (05:50→15:58)
[2023-12-24] MEDS: Acetaminophen 500 MG Tablet 1000 MG PO ×3 (05:50→22:06)
[2023-12-24] MEDS: Glycerin/Hypromellose/PEG400 15 ml Bottle 1 DRP OPHTHALMIC ×3 (05:52→22:05)
[2023-12-24 06:10] LABS: Hematocrit 30.5 % (37-47); Hemoglobin 9.8 g/dL (12.0-15.0); Mean Corp Hgb Conc 32.1 g/dL (32-36); Mean Corpuscular Hgb 30.6 pg (27.0-32.0); Mean Corpuscular Volume 95.3 fL (81-99); Mean Platelet Vol. 9.9 fl (6.2-12.0); Platelet Count 289 K/mm3 (150-450); RBC Distribution Width CV 14.5 % (11.6-14.6); RBC Distribution Width SD 50.9 fl (35.1-43.9); White Blood Count 21.1 K/mm3 (4.4-11.0)
[2023-12-24 06:35] LABS: Anion Gap 5 (5-15); BUN 30 mg/dL (7-18); BUN/Creat Ratio 22.4 RATIO (10-20); Calcium,Total 8.5 mg/dL (8.5-10.1); Chloride 107 mmol/L (98-107); Creatinine, Serum 1.34 mg/dL (0.55-1.02); EST Glomerular Filtration Rate 40 mL/min (>60); Est Glom Filt Rate - Afr Amer 48 mL/min (>60); Estimated Creatinine Clearance 21.25 ml/min; Glucose 92 mg/dL (74-106); Potassium 4.5 mmol/L (3.5-5.1); Sodium Level 138 mmol/L (136-145)
--- NOTE | 2023-12-24 06:50 | PN.ORTHO_ITS ---
Subjective Subjective 88-year-old female underwent right hip hemiarthroplasty yesterday morning. Intraoperative was uneventful. No adverse events yesterday. Pain has been well-controlled. She has not yet worked with physical therapy. She currently denies chest pain shortness of breath dizziness or calf pain. Doing well overall. Objective Data Objective Data Inspection of right hip is with waterproof dressing intact without active drainage erythema warmth or signs of infection. Negative Ashley bilaterally without signs of DVT. Pedal pulses present equal bilaterally. Sensation intact light touch. Patient is able to actively plantar and dorsiflex bilateral ankles against resistance neurovascularly intact. Vital Signs: Vital Signs Temp Pulse Resp BP Pulse Ox O2 Del Method O2 Flow Rate 98 F 85 16 126/62 H 94 Nasal Cannula 2 12/24/23 03:12/24/23 03:12/24/23 03:07 12/24/23 03:07 12/24/23 03:07 12/24/23 03:07 12/24/23 03:07 Oxygen Flow Rate (L/min) 2 Oxygen Delivery Method Nasal Cannula Weight: 49.5 kg Body Mass Index (BMI) 21.4 Intake & Output: Intake and Output for Last 24 Hours 12/22/23 12/23/23 12/24/23 23:59 23:59 23:59 Intake Total 2821 / 2821 420.25 / 420.25 Output Total 1050 / 1050 100 / 100 Balance 1771 / 1771 320.25 / 320.25 Lab / Micro Data Attestation: I reviewed the patient's lab results. 12/24/23 05:30 12/24/23 05:30 Labs: Laboratory Results - last 24 hr 12/23/23 05:10: Differential Comment SCANNED, Diff Path Review October12/24/23 05:30: WBC 21.1 H, RBC 3.20 L, Hgb 9.8 L, Hct 30.5 L, MCV 95.3, MCH 30.6, MCHC 32.1, RDW Std Deviation 50.9 H, RDW Coeff of [place] 14.5, Plt Count 289, MPV 9.9, Sodium 138, Potassium 4.5, Chloride 107, Carbon Dioxide 26.0, Anion Gap 5, BUN 30 H, Creatinine 1.34 H, Estim Creat Clear Calc 21.25, Est GFR (MDRD) Af Amer 48 L, Est GFR (MDRD) Non-Af 40 L, BUN/Creatinine Ratio 22.4 H, Glucose 92, Calcium 8.5 Radiography Diagnostic Testing: Radiology Impression Hip X-Ray 12/23/23 08:05 IMPRESSION: Replaced right hip joint demonstrates anatomic alignment, no plain film evidence of postoperative complication Electronically Signed: Jayden Mccormack MD at 11:36 EDT Reading Location ID and State: [facility] / [place] , Service support , X-rays reviewed by myself this morning Assessment & Plan Assessment/Plan (1) Displaced fracture of right femoral neck: PLAN: 1. Status post right hip hemiarthroplasty postoperative day #1 2. Continue Tylenol and oxycodone as needed for pain 3. DVT prophylaxis bilateral teds SCDs and aspirin 81 mg twice daily for 1 month postoperative 4. Begin PT/OT weightbearing as tolerated right lower extremity with a walker hip dislocation precautions 5. Drop in hemoglobin hematocrit asymptomatic without indications for transfusion likely combination of hemodilution and acute blood loss continue to monitor no indications for transfusion at this time 6. Leukocytosis afebrile without acute signs of infection likely resulting from acute stress response continue to monitor anticipate resolution over the next several days 7. Encourage incentive spirometry 8. Continue discharge planning with case management 9. Continue postoperative medical management per hospitalist 10. Patient is orthopedically stable and okay for discharge back to retirement facility when cleared medically having adequate pain control and doing well with physical therapy. We would recommend follow-up with orthopedics 2 weeks postoperative with x-rays and staple removal. Please do not hesitate to contact us with any further orthopedic concerns.
[2023-12-24] MEDS: Midodrine HCl 5 MG Tablet 10 MG PO ×3 (08:47→15:58)
[2023-12-24] MEDS: Senna/Docusate Sodium 1 Tablet 2 TABLET PO ×2 (08:48→22:06)
[2023-12-24] MEDS: Menthol/Lanolin/Calamine/Znox 113 GM Tube 1 APPLIC TOPICAL ×2 (08:48→22:05)
[2023-12-24] MEDS: Multivitamins,Therapeutic Tablet 1 TABLET PO (08:48)
[2023-12-24] MEDS: Aspirin 81 MG TAB.CHEW PO ×2 (08:48→22:05)
--- NOTE | 2023-12-24 11:12 | CASEMGMT ---
Social Work- SW met with pt and pt son, Lalo, to complete SDOH assessment. Both state no concerns at this time. SW discussed pt preferences for d/c. Pt and pt son declined a list of SNF facilities, as they have [place] [facility] as choices. Pt son Lalo to speak with [facility] before deciding which facility will be FOC. SW discussed pt frequent hospitalizations since June and suggested that pt may have increasing needs that pt may need increased supports for. Pt son reports that staff at [facility] often shadow pt as she walks, but that pt likes to be active and has done pretty well until the past month. PT son to follow up with on FOC after talking with [facility]. DANIEL Chatman
[2023-12-24 12:17] LABS: Vitamin B12 1039 pg/mL (211-911)
--- NOTE | 2023-12-24 12:37 | PN.HOSP_ITS ---
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 Patient was sitting up comfortably in bedside chair, conversing normally, in no acute distress. She reported having some pain when being moved from bed to her bedside chair but currently denied any pain or discomfort. No other acute concerns this morning. Objective Data Objective Data Vital Signs: Vital Signs Temp Pulse Resp BP Pulse Ox O2 Del Method O2 Flow Rate 98.4 F 100 18 96/62 94 Nasal Cannula 2 12/24/23 08:28 12/24/23 08:34 12/24/23 08:28 12/24/23 08:28 12/24/23 08:28 12/24/23 08:28 12/24/23 09:35 Oxygen Flow Rate (L/min) 2 Oxygen Delivery Method Nasal Cannula Weight: 49.5 kg Body Mass Index (BMI) 21.4 Intake & Output: Intake and Output for Last 24 Hours 12/22/23 12/23/23 12/24/23 23:59 23:59 23:59 Intake Total 2821 / 2821 420.25 / 420.25 Output Total 1050 / 1050 100 / 100 Balance 1771 / 1771 320.25 / 320.25 Lab / Micro Data 12/24/23 05:30 12/24/23 05:30 Labs: Laboratory Results - last 24 hr 12/23/23 05:10: Vitamin B12 1039 H 12/24/23 05:30: WBC 21.1 H, RBC 3.20 L, Hgb 9.8 L, Hct 30.5 L, MCV 95.3, MCH 30.6, MCHC 32.1, RDW Std Deviation 50.9 H, RDW Coeff of [place] 14.5, Plt Count 289, MPV 9.9, Sodium 138, Potassium 4.5, Chloride 107, Carbon Dioxide 26.0, Anion Gap 5, BUN 30 H, Creatinine 1.34 H, Estim Creat Clear Calc 21.25, Est GFR (MDRD) Af Amer 48 L, Est GFR (MDRD) Non-Af 40 L, BUN/Creatinine Ratio 22.4 H, Glucose 92, Calcium 8.5 Physical Exam Const alert and no apparent distress Constitutional Narrative: Pleasant elderly female, history of dementia but alert and answering questions appropriately, sitting up comfortably in bedside chair, in no acute distress. General Appearance: cooperative and comfortable HEENT normocephalic, head/scalp atraumatic, hearing grossly normal bilaterally, nasal mucous membranes and turbinates normal and moist oral mucous membranes Eyes PERRL, EOMs intact bilaterally and conjunctivae normal Neck full ROM Chest inspection of chest normal Resp normal respiratory effort, normal air movement, no use of accessory muscles and clear to auscultation bilaterally Cardio regular rate, regular rhythm, no murmurs and peripheral pulses 2+ throughout GI normal to inspection, nondistended, normoactive bowel sounds, soft to palpation, non-tender and non-distended Back/Spine normal ROM Extremity Extremity Narrative: Right hip dressing intact. No gross abnormalities on visual exam. Skin no rashes or lesions noted Neuro moves all extremities and no focal motor deficits Speech: speech normal Psych mental status grossly normal Assessment & Plan Assessment/Plan (1) Displaced fracture of right femoral neck: (2) Generalized weakness: PLAN: Plan Patient is an 88-year-old female who presented ED on 12/22/2023 with right hip pain after a fall at her assisted living facility. 1. Right femoral neck fracture with acute on chronic debility ? Orthopedics following. PT/OT/case management following. Lives at [facility] in assisted living, had ground-level fall resulting in right hip fracture. S/p right hip hemiarthroplasty done on 12/22. Patient tolerated procedure well, no intraoperative complications. Continue pain control with scheduled Tylenol and oxycodone as needed. Aspirin 81 mg twice daily for DVT prophylaxis. Planning for discharge to [facility] side of [facility]; medically ready on 12/23, pre-CERT pending. 2. 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 Stable. Continue home carbidopa-levodopa and midodrine. PT/OT following as above. 3. Mild postprocedural acute blood loss anemia in setting of chronic mild anemia ? Baseline hemoglobin around 11, at baseline on admit. Hemoglobin dropped to 9.8 on postop day 1, consistent with blood loss from procedure. Follow-up a.m. CBC. 4. CKD stage III-IV ? Creatinine 1.09 on admit, baseline 1.0-1.3. Has remained at baseline during hospitalization. Stable. 5. History of TIA ? Stable. On baby aspirin daily at home. Continue twice daily baby aspirin for now as noted above. DVT prophylaxis: Aspirin 81 mg twice daily CODE STATUS: Full code, unverified Expected disposition: SNF, medically ready on 12/23, pre-CERT pending Total clinical time spent by myself addressing the patient's medical issues, reviewing all the data, and collaborating with patient's care team: 35 minutes. Charges/Coding Visit Charges Inpatient E&M: 99833 Subs Hosp L2
--- NOTE | 2023-12-24 13:26 | CASEMGMT ---
Social Work- SW spoke with pt son, Lalo, who states that he spoke with [facility] and they are going to be FOC. SW completed referral to [facility]. Plan: [facility]; acceptance pending DANIEL Chatman
[2023-12-24 14:19] LABS: Pathologist Review Reviewed
[2023-12-24] MEDS: Ensure Plus High Protein 120 ML LIQUID PO (22:06)
[2023-12-25] VITALS (7 sets, daily range): BP systolic 92–149; BP diastolic 61–86; PULSE 68–87; RESP 16–18; TEMP 36.5–37.1; O2SAT 93–100; BMI 22.3
[2023-12-25] MEDS: Acetaminophen 500 MG Tablet 1000 MG PO ×2 (05:58→13:40)
[2023-12-25] MEDS: Glycerin/Hypromellose/PEG400 15 ml Bottle 1 DRP OPHTHALMIC ×2 (05:58→13:40)
[2023-12-25] MEDS: Carbidopa/Levodopa 25/100 Tablet PO ×3 (05:58→16:26)
[2023-12-25 07:00] LABS: Hematocrit 26.5 % (37-47); Hemoglobin 8.6 g/dL (12.0-15.0); Mean Corp Hgb Conc 32.5 g/dL (32-36); Mean Corpuscular Hgb 30.4 pg (27.0-32.0); Mean Corpuscular Volume 93.6 fL (81-99); Mean Platelet Vol. 9.5 fl (6.2-12.0); Platelet Count 231 K/mm3 (150-450); RBC Distribution Width CV 14.6 % (11.6-14.6); RBC Distribution Width SD 50.1 fl (35.1-43.9); Red Blood Count 2.83 M/mm3 (4.2-5.4); White Blood Count 19.7 K/mm3 (4.4-11.0)
[2023-12-25 07:18] LABS: Anion Gap 5 (5-15); BUN 36 mg/dL (7-18); BUN/Creat Ratio 34.3 RATIO (10-20); Calcium,Total 8.2 mg/dL (8.5-10.1); Chloride 108 mmol/L (98-107); Creatinine, Serum 1.05 mg/dL (0.55-1.02); EST Glomerular Filtration Rate 53 mL/min (>60); Est Glom Filt Rate - Afr Amer 64 mL/min (>60); Estimated Creatinine Clearance 27.11 ml/min; Glucose 105 mg/dL (74-106); Potassium 4.5 mmol/L (3.5-5.1); Sodium Level 137 mmol/L (136-145)
[2023-12-25 08:23] LABS: Ferritin 90 ng/mL (8-252); Iron 14 ug/dL (50-170); Iron Binding Capacity,Total 279 ug/dL (250-450)
[2023-12-25] MEDS: Midodrine HCl 5 MG Tablet 10 MG PO ×2 (09:25→11:15)
[2023-12-25] MEDS: Multivitamins,Therapeutic Tablet 1 TABLET PO (09:26)
[2023-12-25] MEDS: Aspirin 81 MG TAB.CHEW PO (09:28)
[2023-12-25] MEDS: Menthol/Lanolin/Calamine/Znox 113 GM Tube 1 APPLIC TOPICAL (09:28)
[2023-12-25] MEDS: Senna/Docusate Sodium 1 Tablet 2 TABLET PO (09:29)
[2023-12-25] MEDS: Ensure Plus High Protein 120 ML LIQUID PO (09:30)
[2023-12-25 10:42] LABS: Hemoglobin 9.1 g/dL (12.0-15.0); Mean Corp Hgb Conc 32.5 g/dL (32-36); Mean Corpuscular Hgb 30.8 pg (27.0-32.0); Mean Corpuscular Volume 94.9 fL (81-99); Mean Platelet Vol. 9.8 fl (6.2-12.0); Platelet Count 248 K/mm3 (150-450); RBC Distribution Width CV 14.6 % (11.6-14.6); RBC Distribution Width SD 50.8 fl (35.1-43.9); Red Blood Count 2.95 M/mm3 (4.2-5.4); White Blood Count 16.8 K/mm3 (4.4-11.0)
--- NOTE | 2023-12-25 12:13 | PCM.PN.HOSP ---
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 Sitting up comfortably in bedside chair, conversing normally, no acute distress. Feels similar to yesterday, only mild right hip pain with movement and no pain at rest. No other new concerns this morning. Objective Data Objective Data Vital Signs: Vital Signs Temp Pulse Resp BP Pulse Ox O2 Del Method O2 Flow Rate 97.7 F L 86 16 97/63 99 Nasal Cannula 2 12/25/23 09:20 12/25/23 11:13 12/25/23 11:13 12/25/23 11:13 12/25/23 11:13 12/25/23 11:13 12/25/23 11:13 Oxygen Flow Rate (L/min) 2 Oxygen Delivery Method Nasal Cannula Weight: 51.5 kg Body Mass Index (BMI) 22.3 Intake & Output: Intake and Output for Last 24 Hours 12/23/23 12/24/23 12/25/23 23:59 23:59 23:59 Intake Total 2821 / 2821 660.25 / 660.25 Output Total 1050 / 1050 700 / 700 200 / 200 Balance 1771 / 1771 -39.75 / -39.75 -200 / -200 Lab / Micro Data 12/25/23 10:26 12/25/23 06:45 Labs: Laboratory Results - last 24 hr 12/23/23 05:10: Diff Path Review Reviewed, Vitamin B12 1039 H 12/25/23 06:45: WBC 19.7 H, RBC 2.83 L, Hgb 8.6 L, Hct 26.5 L, MCV 93.6, MCH 30.4, MCHC 32.5, RDW Std Deviation 50.1 H, RDW Coeff of [place] 14.6, Plt Count 231, MPV 9.5, Sodium 137, Potassium 4.5, Chloride 108 H, Carbon Dioxide 24.0, Anion Gap 5, BUN 36 H, Creatinine 1.05 H, Estim Creat Clear Calc 27.11, Est GFR (MDRD) Af Amer 64, Est GFR (MDRD) Non-Af 53 L, BUN/Creatinine Ratio 34.3 H, Glucose 105, Calcium 8.2 L, Iron 14 L, TIBC 279, Iron Saturation 5.0 L, Ferritin 90, Folate 28.70 12/25/23 10:26: WBC 16.8 H, RBC 2.95 L, Hgb 9.1 L, Hct 28.0 L, MCV 94.9, MCH 30.8, MCHC 32.5, RDW Std Deviation 50.8 H, RDW Coeff of [place] 14.6, Plt Count 248, MPV 9.8 Physical Exam Const alert and no apparent distress Constitutional Narrative: Pleasant elderly female, history of dementia but alert and answering questions appropriately, sitting up comfortably in bedside chair, in no acute distress. General Appearance: cooperative and comfortable HEENT normocephalic, head/scalp atraumatic, hearing grossly normal bilaterally, nasal mucous membranes and turbinates normal and moist oral mucous membranes Eyes PERRL, EOMs intact bilaterally and conjunctivae normal Neck full ROM Chest inspection of chest normal Resp normal respiratory effort, normal air movement, no use of accessory muscles and clear to auscultation bilaterally Cardio regular rate, regular rhythm, no murmurs and peripheral pulses 2+ throughout GI normal to inspection, nondistended, normoactive bowel sounds, soft to palpation, non-tender and non-distended Back/Spine normal ROM Extremity Extremity Narrative: Right hip dressing intact. No gross abnormalities on visual exam. Stable. Skin no rashes or lesions noted Neuro moves all extremities and no focal motor deficits Speech: speech normal Psych mental status grossly normal Assessment & Plan Assessment/Plan (1) Displaced fracture of right femoral neck: (2) Generalized weakness: (3) Anemia: PLAN: Plan Patient is an 88-year-old female who presented [facility] ED on 12/22/2023 with right hip pain after a fall at her assisted living facility. 1. Right femoral neck fracture with acute on chronic debility ? Orthopedics following. PT/OT/case management following. Lives at [place] [facility] in assisted living, had ground-level fall resulting in right hip fracture. S/p right hip hemiarthroplasty done on 12/22. Patient tolerated procedure well, no intraoperative complications. Continue pain control with scheduled Tylenol and oxycodone as needed. Aspirin 81 mg twice daily for DVT prophylaxis. Planning for discharge to SNF side of [place]; medically ready on 12/24, pre-CERT pending. 2. 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 Stable. Continue home carbidopa-levodopa and midodrine. PT/OT following as above. 3. Postprocedural acute blood loss anemia in setting of chronic mild anemia ? Baseline hemoglobin around 11, at baseline on admit. Hemoglobin dropped to 9.8 on postop day 1, consistent with blood loss from procedure. Hemoglobin again dropped to 8.6 on postop day 2; repeat hemoglobin checked and was 9.1. Right hip appears stable from previous days, I have lower concern for active slow bleed into the hip. No other sources of bleeding noted. Patient stable for discharge on postop day 2 but would recommend repeat CBC in 3 to 5 days. Will continue to monitor CBC daily while she is here. 4. CKD stage III-IV ? Creatinine 1.09 on admit, baseline 1.0-1.3. Has remained at baseline during hospitalization. Stable. 5. History of TIA ? Stable. On baby aspirin daily at home. Continue twice daily baby aspirin for now as noted above. DVT prophylaxis: Aspirin 81 mg twice daily CODE STATUS: Full code, unverified Expected disposition: SNF, medically ready on 12/24, pre-CERT pending Total clinical time spent by myself addressing the patient's medical issues, reviewing all the data, and collaborating with patient's care team: 35 minutes. Charges/Coding Visit Charges Inpatient E&M: 06781 Subs Hosp L2
--- NOTE | 2023-12-25 15:03 | TREXTCAR_ITS ---
Diet Diet Order/Speech Therapy: 12/23/23 22:27 Diet: Regular - General Type of Dietary Supplement:: Magic Cup Dessert Is pt able to select menu?: No Routine Orders/Code Status Routine Lab Work: CBC (Please repeat in 5 days) Code Status: DNRCC-A (DO NOT INTUBATE) Wound(s) left grier: Wound Type: Abrasion rt grier: Wound Type: Abrasion left elbow: Wound Type: Skin Tear right hip: Wound Type: Surgical Incision Therapies Weight Bearing: Full weight bearing Physical Therapy: Eval and Treat Occupational Therapy: Eval and Treat Problem/Diagnosis (1) Displaced fracture of right femoral neck: Status: Acute Code(s): S72.001A - Fracture of unspecified part of neck of right femur, initial encounter for closed fracture (2) Generalized weakness: Status: Acute Code(s): R53.1 - Weakness (3) Anemia: Status: Acute Code(s): D64.9 - Anemia, unspecified Plan Patient is an 88-year-old female who presented [facility] ED on 12/22/2023 with right hip pain after a fall at her assisted living facility. Hospital course as noted below. Patient discharged to SNF in stable condition on 12/24. 1. Right femoral neck fracture with acute on chronic debility ? Orthopedics followed. PT/OT/case management followed. Lives at [facility] in assisted living, had ground-level fall resulting in right hip fracture. S/p right hip hemiarthroplasty done on 12/22. Patient tolerated procedure well, no intraoperative complications. Continue pain control with scheduled Tylenol and oxycodone as needed. Aspirin 81 mg twice daily for DVT prophylaxis. Stable for discharge to SNF side of [facility] on 12/24. 2. 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 Stable. Continue home carbidopa-levodopa and midodrine. PT/OT followed as above. 3. Postprocedural acute blood loss anemia in setting of chronic mild anemia ? Baseline hemoglobin around 11, at baseline on admit. Hemoglobin dropped to 9.8 on postop day 1, consistent with blood loss from procedure. Hemoglobin again dropped to 8.6 on postop day 2; repeat hemoglobin checked and was 9.1. Right hip appeared stable from previous days, so I have low concern for active slow bleed into the hip. No other sources of bleeding noted. Patient stable for discharge but recommend repeat CBC in 5 days to ensure continued stability of hemoglobin. 4. CKD stage III-IV ? Creatinine 1.09 on admit, baseline 1.0-1.3. Remained at baseline during hospitalization. Stable. 5. History of TIA ? Stable. On baby aspirin daily at home. Continue twice daily baby aspirin as noted above. Total clinical time spent by myself addressing the patient's medical issues, reviewing all the data, and collaborating with patient's care team: 35 minutes. Allergies/Procedures Done in Hospital Allergies Penicillins Allergy (Verified 12/22/23 17:58) Rash risperidone (From Risperdal) Adverse Reaction (Severe, Verified 12/22/23 17:58) Low blood pressure Also becomes severely confused and has slurred speech and hallucinations. tramadol Adverse Reaction (Verified 12/22/23 17:58) Other upset stomach Procedures: EKG and - (Right hip hemiarthroplasty, chest x-ray, hip x-ray x 2 ) Type of Care/Length of Stay Estimated LOS: Convalescent Care Less Than 30 days Type of Care Needed: Skilled Rehab Potential: Fair Prognosis: Fair Additional Orders/Day of Discharge H&P will serve as current which was dated: 12/22/23 Day of Discharge: 12/25/23 Dietary and Speech Recommendations Dietitian Recommendations/Changes: Continue liberal regular diet w/ magic cup at meals Will decrease EPHP at [facility] from 4x/day to 2x/day per pt request. Discharge Plan Admission Admit Date/Time: 12/22/23 19:43 Primary Reason for Your Visit: Right hip pain after fall Attending Provider: Naresh Blanchard Primary Care Provider: Odalis Saravia Consulting Providers: Ethan Kim; Adrien Baez; Osiel Sims Discharge Orders/Prescriptions Prescriptions: New acetaminophen 500 mg Tablet 1,000 mg PO Q8 14 Days Qty: 0 0RF aspirin 81 mg Tablet,Chewable 81 mg PO BID 30 Days Qty: 0 0RF Ensure Plus High Protein 0.08 gram-1.5 kcal/mL Liquid 120 ml PO BID Qty: 0 0RF Continued carbidopa-levodopa 25-100 mg tablet 2 tab PO TID multivitamin tablet 1 tab PO DAILY VITAL TEARS 1 drp ophthalmic (eye) TID Patient Comments: FAMILY STATES THAT PT USES EYE DROPS MADE AT [facility] THAT IS MADE WITH HER BLOOD. AFTER RESEARCH, EYE DROPS ARE CALLED VITAL EYES, OR AUTOLOGOUS SERUM. midodrine 5 mg Tablet 10 mg PO TIDCM Qty: 0 0RF Held aspirin 81 mg Tablet,Chewable 81 mg PO BREAKFAST 30 Days Qty: 30 3RF Hold Instructions: Resume on 01/23/24. Discontinued acetaminophen 325 mg Tablet 650 mg PO Q8 PRN (Reason: fever or pain) Referrals / Follow Up: Odalis Saravia MD [Primary Care Provider] - Disposition Disposition (needs filled in before D/C Order can be placed): [facility] Facility
--- NOTE | 2023-12-25 15:03 | CASEMGMT ---
Social Work- [facility] received precert. SW advised physician and pt, as well as pt son. DANIEL Chatman
--- NOTE | 2023-12-25 15:10 | DS.PCM_ITS ---
Providers Date of Admission: 12/22/23 Date of Discharge: 12/25/23 Primary Care Physician: Dr. Odalis Saravia MD Consultations 12/22/23 20:42 Consult: Orthopedics Routine Consulting Provider: Adrien aBez Reason for Consult: Right Hip Fracture with need for ORIF. EMERGENT Consult: No MD Notified: Yes Date Notified: 12/22/23 Time Notified: 19:49 Method of Notification: ED Physician Initiated Reason For Visit: RIGHT HIP FRACTURE AFTER FALL IN THE SETTING OF Diagnosis Discharge Diagnosis (1) Displaced fracture of right femoral neck: Status: Acute Code(s): S72.001A - Fracture of unspecified part of neck of right femur, initial encounter for closed fracture (2) Generalized weakness: Status: Acute Code(s): R53.1 - Weakness (3) Anemia: Status: Acute Code(s): D64.9 - Anemia, unspecified Medications at Discharge Home Medications multivitamin 1 tab PO DAILY SUPPLEMENT 11/20/18 carbidopa 25 mg-levodopa 100 mg tablet 2 tab PO TID [place]S 01/05/23 aspirin 81 mg chewable tablet 81 mg PO BREAKFAST [facility] 1 month #30 tabs 06/29/23 VITAL TEARS 1 drp ophthalmic (eye) TID DRY EYES 09/08/23 midodrine 5 mg tablet 10 mg (2 x 5 mg) PO TIDCM BLOOD PRESSURE #0 tabs 09/14/23 acetaminophen 500 mg tablet 1,000 mg (2 x 500 mg) PO Q8 14 days #0 tabs 12/25/23 aspirin 81 mg chewable tablet 81 mg PO BID 30 days #0 tabs 12/25/23 food supplemt, lactose-reduced 0.08 gram-1.5 kcal/mL oral liquid (Ensure Plus High Protein) 120 ml PO BID #0 mL 12/25/23 Hospital Course Operations total hip replacement Procedures EKG and - (Chest x-ray, hip x-ray x 2) Summary of Care Provided Minutes Spent on Discharge: 35 Hospital Course: Patient is an 88-year-old female who presented [facility] ED on 12/22/2023 with right hip pain after a fall at her assisted living facility. Hospital course as noted below. Patient discharged to SNF in stable condition on 12/24. 1. Right femoral neck fracture with acute on chronic debility ? Orthopedics followed. PT/OT/case management followed. Lives at [place] [facility] in assisted living, had ground-level fall resulting in right hip fracture. S/p right hip hemiarthroplasty done on 12/22. Patient tolerated procedure well, no intraoperative complications. Continue pain control with scheduled Tylenol and oxycodone as needed. Aspirin 81 mg twice daily for DVT prophylaxis. Stable for discharge to [facility] side of [facility] on 12/24. 2. 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 Stable. Continue home carbidopa-levodopa and midodrine. PT/OT followed as above. 3. Postprocedural acute blood loss anemia in setting of chronic mild anemia ? Baseline hemoglobin around 11, at baseline on admit. Hemoglobin dropped to 9.8 on postop day 1, consistent with blood loss from procedure. Hemoglobin again dropped to 8.6 on postop day 2; repeat hemoglobin checked and was 9.1. Right hip appeared stable from previous days, so I have low concern for active slow bleed into the hip. No other sources of bleeding noted. Patient stable for discharge but recommend repeat CBC in 5 days to ensure continued stability of hemoglobin. 4. CKD stage III-IV ? Creatinine 1.09 on admit, baseline 1.0-1.3. Remained at baseline during hospitalization. Stable. 5. History of TIA ? Stable. On baby aspirin daily at home. Continue twice daily baby aspirin as noted above. Total clinical time spent by myself addressing the patient's medical issues, reviewing all the data, and collaborating with patient's care team: 35 minutes. Physical Exam Const alert and no apparent distress Constitutional Narrative: Pleasant elderly female, history of dementia but alert and answering questions appropriately, sitting up comfortably in bedside chair, in no acute distress. General Appearance: cooperative and comfortable HEENT normocephalic, head/scalp atraumatic, hearing grossly normal bilaterally, nasal mucous membranes and turbinates normal and moist oral mucous membranes Eyes PERRL, EOMs intact bilaterally and conjunctivae normal Neck full ROM Chest inspection of chest normal Resp normal respiratory effort, normal air movement, no use of accessory muscles and clear to auscultation bilaterally Cardio regular rate, regular rhythm, no murmurs and peripheral pulses 2+ throughout GI normal to inspection, nondistended, normoactive bowel sounds, soft to palpation, non-tender and non-distended Back/Spine normal ROM Extremity Extremity Narrative: Right hip dressing intact. No gross abnormalities on visual exam. Stable. Skin no rashes or lesions noted Neuro moves all extremities and no focal motor deficits Speech: speech normal Psych mental status grossly normal Weight / BMI Weight Weight: 51.5 kg Body Mass Index (BMI) 22.3 ABG / Lab / Microbiology Data 12/25/23 10:26 12/25/23 06:45 Laboratory: Laboratory Results - last 24 hr 12/25/23 06:45: WBC 19.7 H, RBC 2.83 L, Hgb 8.6 L, Hct 26.5 L, MCV 93.6, MCH 30.4, MCHC 32.5, RDW Std Deviation 50.1 H, RDW Coeff of [place] 14.6, Plt Count 231, MPV 9.5, Sodium 137, Potassium 4.5, Chloride 108 H, Carbon Dioxide 24.0, Anion Gap 5, BUN 36 H, Creatinine 1.05 H, Estim Creat Clear Calc 27.11, Est GFR (MDRD) Af Amer 64, Est GFR (MDRD) Non-Af 53 L, BUN/Creatinine Ratio 34.3 H, Glucose 105, Calcium 8.2 L, Iron 14 L, TIBC 279, Iron Saturation 5.0 L, Ferritin 90, Folate 28.70 12/25/23 10:26: WBC 16.8 H, RBC 2.95 L, Hgb 9.1 L, Hct 28.0 L, MCV 94.9, MCH 30.8, MCHC 32.5, RDW Std Deviation 50.8 H, RDW Coeff of [place] 14.6, Plt Count 248, MPV 9.8 Meaningful Use Info Meaningful Use Meaningful Use Diagnoses (Choose all that apply): None applicable Ischemic Stroke Statin Dosing Therapy Reference: STATIN DOSE THERAPY REFERENCE: * Patients > 75 years receive moderate or high dose statin therapy. * Patients 75 years or YOUNGER should receive HIGH intensity statin dose unless contraindicated. You will be required to document reason for non-treatment if statin daily dose does not meet guidelines. HIGH DOSE STATIN THERAPY DAILY Atorvastatin > than or = to 40 mg Rosuvastatin > than or = to 20 mg Amlodipine + Atorvastatin > than or = to 2.5/40 mg Ezetimibe + Simvastatin 10/80 mg Simvastatin 80mg Discharge Plan Admission Admit Date/Time: 12/22/23 19:43 Primary Reason for Your Visit: Right hip pain after fall Attending Provider: Naresh Blanchard Primary Care Provider: Odalis Saravia Consulting Providers: Ethan Kim; Adrien Baez; Osiel Sims Discharge Orders/Prescriptions Prescriptions: New acetaminophen 500 mg Tablet 1,000 mg PO Q8 14 Days Qty: 0 0RF aspirin 81 mg Tablet,Chewable 81 mg PO BID 30 Days Qty: 0 0RF Ensure Plus High Protein 0.08 gram-1.5 kcal/mL Liquid 120 ml PO BID Qty: 0 0RF Continued carbidopa-levodopa 25-100 mg tablet 2 tab PO TID multivitamin tablet 1 tab PO DAILY VITAL TEARS 1 drp ophthalmic (eye) TID Patient Comments: FAMILY STATES THAT PT USES EYE DROPS MADE AT [facility] THAT IS MADE WITH HER BLOOD. AFTER RESEARCH, EYE DROPS ARE CALLED VITAL EYES, OR AUTOLOGOUS SERUM. midodrine 5 mg Tablet 10 mg PO TIDCM Qty: 0 0RF Held aspirin 81 mg Tablet,Chewable 81 mg PO BREAKFAST 30 Days Qty: 30 3RF Hold Instructions: Resume on 01/23/24. Discontinued acetaminophen 325 mg Tablet 650 mg PO Q8 PRN (Reason: fever or pain) Referrals / Follow Up: Odalis Saravia MD [Primary Care Provider] - Disposition Disposition (needs filled in before D/C Order can be placed): Residential Facility Charges/Coding Visit Charges Inpatient E&M: 07407 Disch Hosp >30min
--- NOTE | 2023-12-25 15:38 | CASEMGMT ---
Social Work Precert has been obtained.? Physician updated and pt is ready for discharge today.? [id number] convalescent form completed in [facility] and sent along with discharge orders [facility] via [facility].? Transportation arranged with Physician ambulance for 4:30 PM pickup via ground ambulance.? SW met with pt and they are agreeable to discharge plan as stated above.? Lalo, son, and bedside nurse notified of discharge time. Disposition:?[facility]?, skilled level of care under convalescent stay. DANIEL Chatman
--- NOTE | 2023-12-25 15:38 | CASEMGMT ---
Discharge Planning Discharge orders, signed med list, and transport time sent to [facility] via [facility]. Physicians will transport patient by cot at 4:30p. Nursing, SW, and patient updated. SW updated patients son. Magaly Tobin DC Planning Asst.
== END 2023-12-25 16:57 | disposition skilled nursing facility (03) | DRG 522 ==
LOC: ED 18:54 → MS3 20:18
PROVIDERS: Orthopaedic Surgery; Admitting Provider Internal Medicine; Emergency Provider Emergency Medicine; PCP Internal Medicine; Visit Provider Hospitalist
PROC: 0SRR0J9 Replacement of Right Hip Joint, Femoral Surface with Synthetic Substitute, Cemented, Open Approach (ICD-10-PCS; CPT 27125; principal; 2023-12-23 08:00)
DX: S72.001A Fracture of unspecified part of neck of right femur, initial encounter for closed fracture (principal); D62 Acute posthemorrhagic anemia; F02.80 Dementia in other diseases classified elsewhere, unspecified severity, without behavioral disturbance, psychotic disturbance, mood disturbance, and anxiety; G20.A1 Parkinson's disease without dyskinesia, without mention of fluctuations; N18.30 Chronic kidney disease, stage 3 unspecified; I36.1 Nonrheumatic tricuspid (valve) insufficiency; I12.9 Hypertensive chronic kidney disease with stage 1 through stage 4 chronic kidney disease, or unspecified chronic kidney disease; W18.30XA Fall on same level, unspecified, initial encounter; E78.5 Hyperlipidemia, unspecified; I95.1 Orthostatic hypotension; I34.0 Nonrheumatic mitral (valve) insufficiency; M19.90 Unspecified osteoarthritis, unspecified site; K21.9 Gastro-esophageal reflux disease without esophagitis; Y92.129 Unspecified place in nursing home as the place of occurrence of the external cause; I49.3 Ventricular premature depolarization; R53.81 Other malaise; Z79.82 Long term (current) use of aspirin; Z79.899 Other long term (current) drug therapy; Z86.73 Personal history of transient ischemic attack (TIA), and cerebral infarction without residual deficits; Z90.81 Acquired absence of spleen
CPT/HCPCS: 36415; 71045; 73502; 80048; 80053; 80061; 80076; 81001; 82306; 82607; 82728; 82746; 83540; 83550; 83735; 84100; 84443; 85025; 85027; 85610; 86850; 86900; 86901; 87811; 88307; 88311; 88341; 88342; 93005; 94668; 97116; 97162; 97166; 97530; 97535; 99284; C1776; J7030; A4216; J2405

== ENCOUNTER 2024-01-29 12:51 | Emergency (ER) | payer MEDICARE, SELFPAY ==
[2024-01-29 12:51] VITALS: BP 108/78; PULSE 76; RESP 20; TEMP 36.4; O2SAT 96
--- NOTE | 2024-01-29 13:33 | CT_ITS ---
STUDY: CT BRAIN WITHOUT CONTRAST REASON FOR EXAM: Female, 88 years old. Fall. RADIATION DOSAGE (If Supplied By Facility): CTDIvol = ( 47.06 ) mGy, DLP = ( 855.03 ) mGycm TECHNIQUE: Transaxial CT imaging of the brain was performed without administration of intravenous contrast material. CT scan performed according to ALARA principles. Automated exposure control used during exam. COMPARISON: Prior study dated: 11/29/2023 FINDINGS: PARENCHYMA: There is no acute bleed or infarct. There are stable chronic ischemic and atrophic changes. VENTRICLES: There is no hydrocephalus. MASTOID AIR CELLS AND PARANASAL SINUSES: The visualized paranasal sinuses are clear. The mastoid air cells are clear. BONES: There is no skull fracture. SOFT TISSUES: There is a right frontal scalp laceration. CT/Brain/Head without Contrast IMPRESSION: Stable chronic ischemic and atrophic changes. No acute intracranial abnormality. Right frontal scalp laceration. Electronically Signed: Filipe Nichols MD at 14:23 EDT ,
--- NOTE | 2024-01-29 13:33 | RAD_ITS ---
STUDY: X-RAY - LEFT FEMUR REASON FOR STUDY: Female, 88 years old. Pain following a fall. TECHNIQUE: 4 view(s) of the femur. COMPARISON: None. FINDINGS: Normal visualized femur. Normal visualized soft tissue structure. There are atherosclerotic vascular calcifications. RAD/Femur Min 2 Views IMPRESSION: No acute abnormality is seen. Electronically Signed: Olivier Maradiaga MD at 14:30 EDT ,
--- NOTE | 2024-01-29 13:33 | RAD_ITS ---
STUDY: X-RAY - RIGHT HAND REASON FOR EXAM: Female, 88 years old. Injury due to a fall. TECHNIQUE: 3 view(s) of the hand. COMPARISON: Comparison is made with prior study dated May 03, 2023. FINDINGS: Normal radiocarpal articulation. Normal distal radioulnar joint. Normal visualized carpal bones. Normal carpal articulations There is degenerative arthrosis of the carpometacarpal articulation of the thumb with lateral subluxation of the first metacarpus. Normal second through fifth carpometacarpal joints. Normal metacarpi. Normal metacarpophalangeal joint of the thumb. Normal interphalangeal joint of the thumb. Normal proximal and distal phalanges of the thumb. Normal metacarpophalangeal joints of the second through fifth fingers. There is diffuse articular joint space narrowing of the proximal and distal interphalangeal joints of the second through fifth fingers, but without erosive changes or periarticular soft tissue swelling. Normal phalanges of the second through fifth fingers. The soft tissue structures are unremarkable. RAD/Hand Min 3 Views IMPRESSION: Degenerative joint disease of the hand, as described above. Electronically Signed: Olivier Maradiaga MD at 14:31 EDT ,
--- NOTE | 2024-01-29 13:33 | CT_ITS ---
STUDY: CT CERVICAL SPINE WITHOUT CONTRAST REASON FOR EXAM: Female, 88 years old. Fall RADIATION DOSAGE (If Supplied By Facility): CTDIvol = ( 13.21 ) mGy, DLP = ( 216.57 ) mGycm TECHNIQUE: High resolution transaxial imaging was performed without contrast material. Sagittal and coronal images were reconstructed. CT scan performed according to ALARA principles. Automated exposure control used during exam. COMPARISON: Prior study dated: 09/08/2023 FINDINGS: BONES: There is no fracture in the cervical spine. The dens is intact. The vertebral body heights are maintained. ALIGNMENT: There is no dislocation. There is straightening of the normal cervical lordosis which may be due to paraspinal muscle spasm or may be positional in nature. DISC SPACES: There are stable moderate to severe degenerative changes which are more pronounced in the lower cervical spine. LUNG APICES: The visualized lung apices are clear. SOFT TISSUES: The visualized paraspinal soft tissues are within normal limits. CT/Spine Cervical without Contras IMPRESSION: No fracture or dislocation in the cervical spine. Straightening of the normal cervical lordosis which may be due to paraspinal muscle spasm or may be positional in nature. Stable moderate to severe degenerative changes which are more pronounced in the lower cervical spine. Electronically Signed: Filipe Nichols MD at 14:26 EDT ,
[2024-01-29] MEDS: Lidocaine/Epi/Tetracaine 50 ML 1 APPLIC TOPICAL (13:52)
--- NOTE | 2024-01-29 14:00 | RAD_ITS ---
STUDY: X-RAY - RIGHT FEMUR REASON FOR STUDY: Female, 88 years old. INJURY TECHNIQUE: 4 view(s) of the femur. COMPARISON: None. FINDINGS: The patient is status post right total hip replacement. There is good alignment. Normal visualized soft tissue structure. There are atherosclerotic vascular calcifications. RAD/Femur Min 2 Views IMPRESSION: Status post right total hip replacement. No acute abnormality is seen. Electronically Signed: Olivier Maradiaga MD at 14:32 EDT ,
[2024-01-29 14:51] VITALS: BP 151/98; PULSE 68; RESP 15; O2SAT 95
--- NOTE | 2024-01-29 14:57 | ED.VIS.FALL ---
HPI HPI - Fall History of Present Illness Chief Complaint: Fall Informant: patient and family Narrative Narrative: Sent in from [facility] fall off commode. Patient approximately 1 month postop right total hip repair from fall and fracture. She is not any blood thinners. Tetanus a year ago. Head injury laceration denies loss of consciousness. Pain in right hand. Abrasions to the bilateral thighs. No neck pain no chest pains no back pain. Patient ambulates with a walker per her grandson who is present. She has been at [facility] for last few months prior to her fall and hip fracture. She has had a left wrist fracture currently in a hard splint. Tetanus Immunization: <5 years Prior similar symptoms: Yes 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 CKD (chronic kidney disease), stage III Falls Brain TIA Parkinson's disease Parotid tumor Lymphoma Parkinsons disease Premature ventricular contraction Hypertension Premature atrial contractions Hyperlipidemia History of atrial myxoma Nonrheumatic tricuspid valve regurgitation Nonrheumatic mitral valve regurgitation Nonrheumatic mitral (valve) prolapse Home Medications ?Medication ?Instructions ?Recorded ?Last Taken ?Type multivitamin 1 tab PO DAILY SUPPLEMENT 11/20/18 11/07/23 08:00 History carbidopa 25 mg-levodopa 100 mg 2 tab PO TID PARKINSONS 01/05/23 11/08/23 05:40 History tablet aspirin 81 mg chewable tablet 81 mg PO BREAKFAST HEART HEALTH 1 06/29/23 11/07/23 08:00 Rx month #30 tabs VITAL TEARS 1 drp ophthalmic (eye) TID DRY EYES 09/08/23 11/08/23 05:40 History midodrine 5 mg tablet 10 mg (2 x 5 mg) PO TIDCM BLOOD 09/14/23 11/07/23 07:45 Rx PRESSURE #0 tabs acetaminophen 500 mg tablet 1,000 mg (2 x 500 mg) PO Q8 14 12/25/23 Unknown Rx days #0 tabs aspirin 81 mg chewable tablet 81 mg PO BID 30 days #0 tabs 12/25/23 Unknown Rx food supplemt, lactose-reduced 120 ml PO BID #0 mL 12/25/23 Unknown Rx 0.08 gram-1.5 kcal/mL oral liquid (Ensure Plus High Protein) Allergy/AdvReac Type Severity Reaction Status Date / Time Penicillins Allergy Rash Verified 01/29/24 12:58 risperidone (From Risperdal) AdvReac Severe Low blood Verified 01/29/24 12:58 pressure tramadol AdvReac Other Verified 01/29/24 12:58 Family History Father Heart disease CHF (congestive heart failure) Mother No problems noted. Surgical History History of facial surgery History of splenectomy History of laparoscopic cholecystectomy Social History household members: none housing: assisted living facility Smoking Status: Never smoker alcohol intake: current details: occasional substance use type: does not use ROS ROS ED Constitutional Constitutional ED: Denies chills, fever(s) or sweats Eyes Eyes: Denies change in vision ENT ENT ED: Denies dysphagia or sore throat Cardiovascular Cardiovascular: Denies chest pain, leg edema, palpitations or racing heartbeat Respiratory/Chest Respiratory/Chest: Denies cough, dyspnea or dyspnea on exertion Gastrointestinal Gastrointestinal: Denies abdominal pain, diarrhea, nausea or vomiting Genitourinary Genitourinary ED: Denies dysuria, hematuria or urinary frequency Musculoskeletal Musculoskeletal: Denies back pain, extremity pain or neck pain Integumentary Reports Abrasions and wounds Neurologic Neurologic: Denies headache(s), paresthesias or weakness EXAM Physical Exam Const Vital Signs: 01/29/24 12:51 01/29/24 12:55 01/29/24 14:51 Temperature 97.6 F L Temperature Source Temporal Pulse Rate 76 68 Respiratory Rate 20 H 15 Respiratory Effort Normal Non-Labored Respiratory Depth Normal Respiratory Pattern Normal Blood Pressure 108/78 151/98 H Blood Pressure Mean 88 115 Pulse Ox 96 95 Oxygen Delivery Method Room Air Room Air Room Air Positive well nourished and well developed Constitutional Narrative: GCS 15 General Appearance ED: well developed and NAD HEENT Reports moist mucous membranes HEENT Narrative: 3 cm laceration right mid forehead additional 2 cm laceration right lateral brow subcutaneous exposure. There is no gross foreign bodies. Bleeding controlled with pressure. normocephalic Eyes EOMs intact bilaterally and conjunctivae normal General Eye ED: Yes normal appearance of both eyes Neck full ROM, no lymphadenopathy and supple Neck Narrative: No midline tenderness or step-offs. General: Negative for tenderness Chest Wall inspection of chest normal and palpation of chest normal Chest: Negative for tenderness Resp normal respiratory effort and normal air movement Resp Narrative: Symmetric breath sounds. Effort and Inspection: symmetric chest movement; Negative for respiratory distress Cardio regular rate, regular rhythm and no murmurs Peripheral Pulses: pulses 2+ throughout GI normal to inspection, nondistended, normoactive bowel sounds and non-tender Palpation: Negative for guarding or rebound tenderness present Back/Spine no CVA tenderness and no thoracic nor lumbar tenderness Extremity Extremity Narrative: Lower extremities: Negative logroll. Right hip with healed incision. There was a superficial skin avulsion across the anterior proximal thigh, no active bleeding. No deformities. Soft compartments. No knee tenderness. Neuro vas intact distally. Left lower extremity: Small flap skin avulsion superficial right lateral thigh. Soft compartments. Neuro vas intact distally. Upper extremities: Right upper extremity: No shoulder elbow or wrist tenderness. There is skin avulsion dorsal aspect of the hand with dressing present. No laceration. No active bleeding. No deformities. Left upper extremity: No shoulder or elbow tenderness. There is a current hard wrist splint on her left wrist and hand. General Extremety ED: Negative for edema or tenderness General Extremity: Negative for edema Neuro oriented x3, CN's II-XII intact bilaterally and no sensory deficits noted Sensorium / Orientation: awake and alert Skin no rashes or lesions noted and no wounds MDM MDM MDM Narrative Medical decision making narrative: Interventions / MDM: Differential diagnosis: Diagnosis considered but do not suspect: N/A My EKG interpretation: N/A Imaging independently reviewed and interpreted by myself: 2 view right femur: Hardware intact no fractures. 2 view left femur: No fracture noted. 3 view right hand: No fracture noted osteoarthritic changes noted. CT brain/cervical spine: No intracranial hemorrhage, degenerative changes cervical spine. External documents reviewed: N/A Test considered but not ordered:N/A ED course: Patient fall off commode. Multiple injuries. Trauma scans head cervical spine obtained. X-ray bilateral femur along with right hand. Procedure note: Laceration repair: Normal sterile conditions. Initial let was placed on the wound, additional 2 cc 1% lidocaine used for supraorbital block on the right brow. Wound was cleansed wet normal saline gauze. 3 cm wound closed with total of 4, 6-0 nylon simple interrupted sutures good approximation. Right lateral brow wound with 2 cm closed with a total of 3, 6-0 nylon simple erupted sutures with good approximation. Bacitracin placed over the wound by myself. Patient Toller procedure well. 1500: X-rays were negative. CT scan on my read shows no intracranial hemorrhage or fracture cervical spine. Pending final read at this time. Superficial skin avulsions will be cleansed and dressed by nursing. 1550: CT scans were negative. There is no sudden came present discussed findings and results of negative imagings. Patient discharged with son to take back to facility. Re-evaluation: stable Disposition discussed with patient/family/significant other: Patient and family. Case discussed with consulting clinician: N/A This note was generated with [employer] dictation software. It may contain incorrect words, spelling, and punctuation that were not noted in checking the note before signing. Radiography Diagnostic Testing: Clinical Impression(s) from Imaging Studies Brain CT 01/29/24 13:33 IMPRESSION: Stable chronic ischemic and atrophic changes. No acute intracranial abnormality. Right frontal scalp laceration. Electronically Signed: Filipe Nichols MD at 14:23 EDT , Cervical Spine CT 01/29/24 13:33 IMPRESSION: No fracture or dislocation in the cervical spine. Straightening of the normal cervical lordosis which may be due to paraspinal muscle spasm or may be positional in nature. Stable moderate to severe degenerative changes which are more pronounced in the lower cervical spine. Electronically Signed: Filipe Nichols MD at 14:26 EDT , Femur X-Ray 01/29/24 13:33 IMPRESSION: No acute abnormality is seen. Electronically Signed: Olivier Maradiaga MD at 14:30 EDT , Hand X-Ray 01/29/24 13:33 IMPRESSION: Degenerative joint disease of the hand, as described above. Electronically Signed: Olivier Maradiaga MD at 14:31 EDT , Femur X-Ray 01/29/24 14:00 IMPRESSION: Status post right total hip replacement. No acute abnormality is seen. Electronically Signed: Olivier Maradiaga MD at 14:32 EDT , Discharge Plan Triage Chief Complaint: Fall ED Provider: Peter Goodwin Dx/Rx/DC Orders Clinical Impression: Head injury, Fall, Laceration of face, Skin tear of right upper extremity, Noninfected skin tear of right leg, Noninfected skin tear of left leg Instructions: ED Head Injury (Adult), ED Laceration, All Closures, ED Skin Tear (Skin Avulsion) Prescriptions: No Action carbidopa-levodopa 25-100 mg tablet 2 tab PO TID multivitamin tablet 1 tab PO DAILY aspirin 81 mg Tablet,Chewable 81 mg PO BREAKFAST 30 Days Qty: 30 3RF acetaminophen 500 mg Tablet 1,000 mg PO Q8 14 Days Qty: 0 0RF aspirin 81 mg Tablet,Chewable 81 mg PO BID 30 Days Qty: 0 0RF Ensure Plus High Protein 0.08 gram-1.5 kcal/mL Liquid 120 ml PO BID Qty: 0 0RF VITAL TEARS 1 drp ophthalmic (eye) TID Patient Comments: FAMILY STATES THAT PT USES EYE DROPS MADE AT [facility] THAT IS MADE WITH HER BLOOD. AFTER RESEARCH, EYE DROPS ARE CALLED VITAL EYES, OR AUTOLOGOUS SERUM. midodrine 5 mg Tablet 10 mg PO TIDCM Qty: 0 0RF Primary Care Provider: Odalis Saravia Referrals: Odalis Saravia MD [Primary Care Provider] - 5-7 Days Activity Restrictions/Additional Instructions: CT scan head and cervical spine negative. X-ray right hand negative. Bilateral femur x-ray negative. 4 sutures placed to the upper wound, 3 sutures to the lower wound on the face. Sutures to removed in 5 to 7 days. Skin tears right hand and thigh. Print Language: Cymro Disposition Disposition: Home, Self Care
[2024-01-29 16:04] VITALS: BP 167/87; PULSE 87; RESP 16; TEMP 36.2; O2SAT 96
--- NOTE | 2024-01-29 16:07 | ED.RN ---
ATTEMPTED TO CALL REPORT TO [facility]. NO ANSWER. PT DISCHARGED WITH SON TO BE TRANSPORTED BACK TO [facility]. DISCHARGE INSTRUCTIONS GIVEN TO SO.
== END 2024-01-29 16:06 | disposition home or self-care (01) ==
PROVIDERS: Emergency Provider Emergency Medicine; PCP Internal Medicine; Visit Provider Emergency Medicine
DX: S09.90XA Unspecified injury of head, initial encounter (principal); S01.81XA Laceration without foreign body of other part of head, initial encounter; S81.811A Laceration without foreign body, right lower leg, initial encounter; S81.812A Laceration without foreign body, left lower leg, initial encounter; W18.11XA Fall from or off toilet without subsequent striking against object, initial encounter; Z86.73 Personal history of transient ischemic attack (TIA), and cerebral infarction without residual deficits
CPT/HCPCS: 12013; 70450; 72125; 73130; 73552; 99284

== ENCOUNTER → 2024-03-04 | Outpatient (REF) | payer MEDICARE, SELFPAY ==
[2024-03-04 09:41] LABS: SERUM TEARS COLLECTION SPECIMEN PROCESSED
== END ==
LOC: OLS.WHLEAS 05:00
PROVIDERS: PCP Internal Medicine; Visit Provider Internal Medicine
DX: Z79.899 Other long term (current) drug therapy (principal)

== ENCOUNTER → 2024-03-06 | Outpatient (REF) | payer MEDICARE, SELFPAY ==
[2024-03-06 09:26] LABS: Absolute Lymphocyte Count 7.04 X10^3/uL (0.83-4.51); Basophil# 0.46 X10^3/uL; Eosinophil# 1.21 X10^3/uL; Hematocrit 35.7 % (37-47); Hemoglobin 11.4 g/dL (12.0-15.0); Lymphocyte # 7.04 X10^3/ul (0.83-4.51); Lymphocyte % 46.3 % (19-41); Mean Corp Hgb Conc 31.9 g/dL (32-36); Mean Corpuscular Hgb 30.2 pg (27.0-32.0); Mean Corpuscular Volume 94.7 fL (81-99); Monocyte# 1.42 X10^3/uL; Monocyte% 9.3 % (0-10); NRBC Flagged by Analyzer 0 % (0-5); Neutrophil # 5.03 X10^3/uL (2.7-7.7); POSITIVE DIFFERENTIAL YES; POSITIVE MORPHOLOGY YES; Platelet Count 423 K/mm3 (150-450); RBC Distribution Width CV 14.5 % (11.6-14.6); RBC Distribution Width SD 50.6 fl (35.1-43.9); Red Blood Count 3.77 M/mm3 (4.2-5.4); White Blood Count 15.2 K/mm3 (4.4-11.0)
[2024-03-06 09:33] LABS: Differential Indicated SCAN CRITERIA MET
[2024-03-06 09:41] LABS: Anion Gap 7 (5-15); BUN 28 mg/dL (7-18); BUN/Creat Ratio 25.9 RATIO (10-20); Calcium,Total 9.8 mg/dL (8.5-10.1); Chloride 106 mmol/L (98-107); Creatinine, Serum 1.08 mg/dL (0.55-1.02); EST Glomerular Filtration Rate 51 mL/min (>60); Est Glom Filt Rate - Afr Amer 62 mL/min (>60); Glucose 85 mg/dL (74-106); Potassium 4.3 mmol/L (3.5-5.1); Sodium Level 139 mmol/L (136-145)
[2024-03-06 10:53] LABS: Differential Comment SCANNED; Reactive Lymphocyte 1+
== END ==
LOC: OLS.WHLEAS 05:00
PROVIDERS: PCP Internal Medicine; Visit Provider Internal Medicine
DX: N18.30 Chronic kidney disease, stage 3 unspecified (principal)
CPT/HCPCS: 36415; 80048; 85025

== ENCOUNTER → 2024-03-13 | Outpatient (REF) | payer OTHER, SELFPAY ==
[2024-03-13 08:21] LABS: Absolute Lymphocyte Count 5.95 X10^3/uL (0.83-4.51); Absolute Neutrophil Count 5.1 X10^3/uL (2.0-7.7); Basophil# 0.38 X10^3/uL; Basophil% 2.6 % (0-1); Eosinophil# 1.46 X10^3/uL; Eosinophils% 10.1 % (0-5); Hematocrit 32.8 % (37-47); Hemoglobin 10.5 g/dL (12.0-15.0); Lymphocyte # 5.95 X10^3/ul (0.83-4.51); Mean Corpuscular Hgb 30.4 pg (27.0-32.0); Mean Corpuscular Volume 95.1 fL (81-99); Mean Platelet Vol. 10.1 fl (6.2-12.0); Monocyte# 1.58 X10^3/uL; Monocyte% 10.9 % (0-10); NRBC Flagged by Analyzer 0 % (0-5); Neutrophil # 5.08 X10^3/uL (2.7-7.7); Neutrophil % 35.1 % (47-70); POSITIVE DIFFERENTIAL YES; Platelet Count 394 K/mm3 (150-450); RBC Distribution Width CV 14.6 % (11.6-14.6); RBC Distribution Width SD 50.8 fl (35.1-43.9); Red Blood Count 3.45 M/mm3 (4.2-5.4); White Blood Count 14.5 K/mm3 (4.4-11.0)
[2024-03-13 08:26] LABS: Differential Indicated SCAN CRITERIA MET
[2024-03-13 08:27] LABS: Anion Gap 7 (5-15); BUN 32 mg/dL (7-18); BUN/Creat Ratio 32.9 RATIO (10-20); Calcium,Total 9.2 mg/dL (8.5-10.1); Chloride 107 mmol/L (98-107); Creatinine, Serum 0.97 mg/dL (0.55-1.02); EST Glomerular Filtration Rate 58 mL/min (>60); Est Glom Filt Rate - Afr Amer 70 mL/min (>60); Glucose 96 mg/dL (74-106); Potassium 3.9 mmol/L (3.5-5.1); Sodium Level 139 mmol/L (136-145)
[2024-03-13 14:10] LABS: Pathologist Review Reviewed
== END ==
LOC: OLS.WHLEAS 05:00
PROVIDERS: PCP Internal Medicine; Visit Provider Internal Medicine
DX: N18.30 Chronic kidney disease, stage 3 unspecified (principal)
CPT/HCPCS: 36415; 80048; 85025

== ENCOUNTER → 2024-03-20 05:00 | Outpatient (REF) | payer OTHER, SELFPAY ==
[2024-03-20 08:48] LABS: Absolute Lymphocyte Count 5.86 X10^3/uL (0.83-4.51); Absolute Neutrophil Count 5.1 X10^3/uL (2.0-7.7); Basophil# 0.37 X10^3/uL; Basophil% 2.7 % (0-1); Eosinophil# 1.06 X10^3/uL; Eosinophils% 7.7 % (0-5); Hematocrit 37.4 % (37-47); Hemoglobin 11.7 g/dL (12.0-15.0); Lymphocyte # 5.86 X10^3/ul (0.83-4.51); Lymphocyte % 42.4 % (19-41); Mean Corp Hgb Conc 31.3 g/dL (32-36); Mean Corpuscular Hgb 29.9 pg (27.0-32.0); Mean Corpuscular Volume 95.7 fL (81-99); Mean Platelet Vol. 10.3 fl (6.2-12.0); Monocyte# 1.38 X10^3/uL; NRBC Flagged by Analyzer 0 % (0-5); Neutrophil % 36.9 % (47-70); POSITIVE DIFFERENTIAL YES; POSITIVE MORPHOLOGY YES; Platelet Count 369 K/mm3 (150-450); RBC Distribution Width CV 14.6 % (11.6-14.6); RBC Distribution Width SD 51.4 fl (35.1-43.9); Red Blood Count 3.91 M/mm3 (4.2-5.4); White Blood Count 13.8 K/mm3 (4.4-11.0)
[2024-03-20 08:55] LABS: Differential Indicated SCAN CRITERIA MET
[2024-03-20 09:05] LABS: Vitamin B12 1107 pg/mL (211-911)
[2024-03-20 10:49] LABS: AST(SGOT) 44 U/L (15-37); Alanine Aminotransfer ALT/SGPT 18 U/L (13-56); Albumin, Serum 3.6 g/dL (3.2-5.0); Alkaline Phosphatase 181 U/L (45-117); Anion Gap 5 (5-15); BUN 29 mg/dL (7-18); BUN/Creat Ratio 25.4 RATIO (10-20); Bilirubin, Direct 0.13 mg/dL (0.00-0.30); Calcium,Total 9.4 mg/dL (8.5-10.1); Chloride 104 mmol/L (98-107); Creatinine, Serum 1.14 mg/dL (0.55-1.02); EST Glomerular Filtration Rate 48 mL/min (>60); Est Glom Filt Rate - Afr Amer 58 mL/min (>60); Globulin 3.6 g/dL (2.2-4.2); Glucose 88 mg/dL (74-106); Protein, Total 7.2 g/dL (6.4-8.2); Sodium Level 136 mmol/L (136-145)
== END ==
LOC: OLS.WHLEAS 05:00
PROVIDERS: PCP Internal Medicine; Visit Provider Internal Medicine
DX: N18.30 Chronic kidney disease, stage 3 unspecified (principal); E78.5 Hyperlipidemia, unspecified
CPT/HCPCS: 36415; 80048; 80076; 82306; 82607; 85025

== ENCOUNTER → 2024-04-24 05:00 | Outpatient (REF) | payer OTHER, SELFPAY ==
[2024-04-24 08:06] LABS: Absolute Lymphocyte Count 8.37 X10^3/uL (0.83-4.51); Basophil# 0.39 X10^3/uL; Basophil% 2.6 % (0-1); Eosinophil# 0.61 X10^3/uL; Eosinophils% 4.1 % (0-5); Hematocrit 35.3 % (37-47); Hemoglobin 11.4 g/dL (12.0-15.0); Lymphocyte # 8.37 X10^3/ul (0.83-4.51); Lymphocyte % 55.9 % (19-41); Mean Corp Hgb Conc 32.3 g/dL (32-36); Mean Corpuscular Hgb 30.9 pg (27.0-32.0); Mean Corpuscular Volume 95.7 fL (81-99); Mean Platelet Vol. 10.3 fl (6.2-12.0); Monocyte# 1.53 X10^3/uL; Monocyte% 10.2 % (0-10); NRBC Flagged by Analyzer 0 % (0-5); Neutrophil # 4.04 X10^3/uL (2.7-7.7); POSITIVE DIFFERENTIAL YES; POSITIVE MORPHOLOGY YES; Platelet Count 341 K/mm3 (150-450); RBC Distribution Width CV 14.1 % (11.6-14.6); RBC Distribution Width SD 49.5 fl (35.1-43.9); Red Blood Count 3.69 M/mm3 (4.2-5.4)
[2024-04-24 08:17] LABS: Anion Gap 5 (5-15); BUN 32 mg/dL (7-18); BUN/Creat Ratio 25.2 RATIO (10-20); Calcium,Total 9.2 mg/dL (8.5-10.1); Chloride 107 mmol/L (98-107); Creatinine, Serum 1.27 mg/dL (0.55-1.02); EST Glomerular Filtration Rate 42 mL/min (>60); Est Glom Filt Rate - Afr Amer 51 mL/min (>60); Glucose 87 mg/dL (74-106); Potassium 4.1 mmol/L (3.5-5.1); Sodium Level 138 mmol/L (136-145)
[2024-04-24 08:34] LABS: Differential Indicated SCAN CRITERIA MET
[2024-04-25 14:42] LABS: Pathologist Review Reviewed
== END ==
LOC: OLS.WHLEAS 05:00
PROVIDERS: PCP Internal Medicine; Visit Provider Internal Medicine
DX: N18.30 Chronic kidney disease, stage 3 unspecified (principal)
CPT/HCPCS: 36415; 80048; 85025

== ENCOUNTER 2024-05-14 09:57 | Emergency (ER) | payer MEDICARE, SELFPAY ==
[2024-05-14 09:58] VITALS: BP 129/68; PULSE 68; RESP 18; TEMP 36.3; O2SAT 94; BMI 20.2
[2024-05-14 10:07] VITALS: BMI 20.2
--- NOTE | 2024-05-14 10:22 | CM.ED ---
Social Work Reason for visit: Validation of Advanced Directives Patient has both HPOA and Living Will on file with [facility]. Patient verified these are the most up to date versions. Jossie Cazares, ART TRACER, MOBILE APPLICATION DEVELOPER
--- NOTE | 2024-05-14 10:55 | EDS_ITS ---
HPI History of Present Illness Chief Complaint: Neuro S/Sx Informant: patient and SNF Onset/Context/Timing Onset: Today Context: Sudden Onset Timing: Continuous Quality: Tremors Location: Head Worsened by: Nothing Relieved by: Nothing Narrative Narrative: Patient presents with tremors that became worse today. Patient has a history of Parkinson's disease. Patient was found by senior care staff with abnormal head movements. Staff reports patient was able to stop voluntarily. Staff also reports patient had recent unwitnessed fall. Patient was referred to the emergency department for concern for intracranial bleeding. Patient states she does not know why she is here. Patient denies any tremors. Patient denies any chest pain or shortness of breath. Patient admits to a mild sore throat. 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 CKD (chronic kidney disease), stage III Anemia Falls Brain TIA Parkinson's disease Parotid tumor Lymphoma Parkinsons disease Premature ventricular contraction Hypertension Premature atrial contractions Hyperlipidemia History of atrial myxoma Nonrheumatic tricuspid valve regurgitation Nonrheumatic mitral valve regurgitation Nonrheumatic mitral (valve) prolapse Home Medications ?Medication ?Instructions ?Recorded ?Last Taken ?Type multivitamin 1 tab PO DAILY SUPPLEMENT 11/20/18 11/07/23 08:00 History carbidopa 25 mg-levodopa 100 mg 2 tab PO TID PARKINSONS 01/05/23 11/08/23 05:40 History tablet aspirin 81 mg chewable tablet 81 mg PO BREAKFAST HEART HEALTH 1 06/29/23 11/07/23 08:00 Rx month #30 tabs VITAL TEARS 1 drp ophthalmic (eye) TID DRY EYES 09/08/23 11/08/23 05:40 History midodrine 5 mg tablet 10 mg (2 x 5 mg) PO TIDCM BLOOD 09/14/23 11/07/23 07:45 Rx PRESSURE #0 tabs acetaminophen 500 mg tablet 1,000 mg (2 x 500 mg) PO Q8 14 12/25/23 Unknown Rx days #0 tabs aspirin 81 mg chewable tablet 81 mg PO BID 30 days #0 tabs 12/25/23 Unknown Rx food supplemt, lactose-reduced 120 ml PO BID #0 mL 12/25/23 Unknown Rx 0.08 gram-1.5 kcal/mL oral liquid (Ensure Plus High Protein) Allergy/AdvReac Type Severity Reaction Status Date / Time Penicillins Allergy Rash Verified 05/14/24 10:04 risperidone (From Risperdal) AdvReac Severe Low blood Verified 05/14/24 10:04 pressure tramadol AdvReac Other Verified 05/14/24 10:04 Family History Father Heart disease CHF (congestive heart failure) Mother No problems noted. Surgical History History of facial surgery History of splenectomy History of laparoscopic cholecystectomy Social History household members: none housing: assisted living facility Smoking Status: Never smoker alcohol intake: current details: occasional substance use type: does not use ROS ROS ED Constitutional Constitutional ED: Denies chills or fever(s) Eyes Eyes: Denies blurry vision or change in vision ENT ENT ED: Reports sore throat; Denies rhinorrhea Cardiovascular Cardiovascular: Denies chest pain or palpitations Respiratory/Chest Respiratory/Chest: Denies cough or dyspnea Gastrointestinal Gastrointestinal: Denies nausea or vomiting Genitourinary Genitourinary ED: Denies dysuria or hematuria Musculoskeletal Musculoskeletal: Denies back pain or neck pain Integumentary Denies abscess or rash Neurologic Neurologic: Denies headache(s) or weakness Allergic/Immunologic Allergic/Immunologic ED: Denies mouth swelling or urticaria EXAM Physical Exam Const Vital Signs: 05/14/24 09:57 05/14/24 09:58 05/14/24 11:57 Temperature 97.4 F L Temperature Source Oral Oral Pulse Rate 68 66 Respiratory Rate 18 18 Blood Pressure 129/68 H 150/81 H Blood Pressure Mean 88 104 Pulse Ox 94 Oxygen Delivery Method Room Air Positive well nourished and well developed General Appearance ED: well developed and NAD HEENT Reports moist mucous membranes Neck supple and no JVD Resp normal respiratory effort and clear to auscultation bilaterally Cardio regular rate Rhythm: abnormal rhythm ectopic beats GI non-tender and non-distended Palpation: soft Extremity normal to inspection Neuro oriented x3, CN's II-XII intact bilaterally and no sensory deficits noted Sensorium / Orientation: alert Motor Exam: strength 5/5 throughout Psych mental status grossly normal MDM MDM MDM Narrative Medical decision making narrative: Differential diagnosis includes intracranial bleeding, stroke, Parkinson's disease, electrolyte abnormality, and benign tremor. CT scan of the brain will be obtained to assess for intracranial bleeding and stroke. CBC will be obtained to assess for leukocytosis and anemia. Basic metabolic profile will be obtained to assess for electrolyte abnormality and renal function. Urinalysis will be obtained to assess for urinary tract infection and hematuria. Lab Data Attestation: I reviewed the patient's lab results. Lab results narrative: CBC was reviewed. There is a mild leukocytosis of 15.0. Hemoglobin was slightly low at 11.9 and hematocrit of 36.6. These are consistent with previous results. Basic metabolic profile was reviewed. BUN was slightly elevated at 27 and creatinine was 1.18. These are consistent with previous results. Urinalysis was reviewed. There is no evidence of urinary tract infection or hematuria. Labs: Laboratory Results - last 24 hr 05/14/24 05/14/24 11:11 11:29 WBC 15.0 H RBC 3.83 L Hgb 11.9 L Hct 36.6 L MCV 95.6 MCH 31.1 MCHC 32.5 RDW Std Deviation 49.3 H RDW Coeff of [place] 14.1 Plt Count 377 MPV 9.8 Immature Gran % (Auto) 0.300 Neut % (Auto) 39.5 L Lymph % (Auto) 44.2 H [place] % (Auto) 8.1 Eos % (Auto) 4.8 Baso % (Auto) 3.1 H Absolute Neuts (auto) 5.9 Absolute Lymphs (auto) 6.63 H Nucleated RBC % 0 Atypical Lymphocytes 1+ Platelet Estimate ADEQUATE Target Cells RARE [place] Cells 1+ Bite Cells RARE Acanthocytes (Spur) 1+ Schistocytes RARE Sodium 136 Potassium 4.6 Chloride 107 Carbon Dioxide 25.0 Anion Gap 5 BUN 27 H Creatinine 1.18 H Estim Creat Clear Calc 24.13 Est GFR (MDRD) Af Amer 56 L Est GFR (MDRD) Non-Af 46 L BUN/Creatinine Ratio 22.9 H Glucose 96 Calcium 9.3 Urine Color Yellow Urine Clarity Clear Urine pH 6.5 Ur Specific [place] 1.010 Urine Protein 15 H Urine Glucose (UA) Normal Urine Ketones Negative Urine Occult Blood Negative Urine Nitrite Negative Urine Bilirubin Negative Urine Urobilinogen Normal Ur Leukocyte Esterase Negative Urine RBC 0 SEEN Urine WBC 0-5 SEEN Ur Squamous Epith Cells 0-5 SEEN Urine Bacteria 0 SEEN Urine Mucus 0 SEEN Radiography Diagnostic Testing: Clinical Impression(s) from Imaging Studies Brain CT 05/14/24 11:01 IMPRESSION: 1. No CT evidence of intracranial bleeding, acute ischemic infarct or acute intracranial abnormality. 2. Multiple asymmetric chronic white matter changes in both cerebral hemispheres. 3. No significant interval change when compared to 01/29/2024. Electronically Signed: Dheeraj Castillo MD at 12:11 EST , CT scan of the brain was obtained. There is no acute intracranial abnormality. There are chronic white matter changes noted. There is no change compared to previous CT scan dated 01/29/2024. This was interpreted by the radiologist and was also independently reviewed by myself. Treatment and Re-Evaluation :: Patient and family were advised of her findings. Patient will be discharged back to extended-care facility. Patient was instructed to follow-up with her primary care physician in 5 to 7 days. Patient and family understand and are agreeable with the plan. All questions were answered. Discharge Plan Triage Chief Complaint: Neuro S/Sx ED Provider: Joel Mccarthy Dx/Rx/DC Orders Clinical Impression: Parkinson's disease, Tremor Instructions: Parkinson Common Symptoms Prescriptions: No Action carbidopa-levodopa 25-100 mg tablet 2 tab PO TID multivitamin tablet 1 tab PO DAILY aspirin 81 mg Tablet,Chewable 81 mg PO BREAKFAST 30 Days Qty: 30 3RF acetaminophen 500 mg Tablet 1,000 mg PO Q8 14 Days Qty: 0 0RF aspirin 81 mg Tablet,Chewable 81 mg PO BID 30 Days Qty: 0 0RF Ensure Plus High Protein 0.08 gram-1.5 kcal/mL Liquid 120 ml PO BID Qty: 0 0RF VITAL TEARS 1 drp ophthalmic (eye) TID Patient Comments: FAMILY STATES THAT PT USES EYE DROPS MADE AT [facility] THAT IS MADE WITH HER BLOOD. AFTER RESEARCH, EYE DROPS ARE CALLED VITAL EYES, OR AUTOLOGOUS SERUM. midodrine 5 mg Tablet 10 mg PO TIDCM Qty: 0 0RF Primary Care Provider: Howard Zimmerman Chi Referrals: Howard Zimmerman Chi, MD [Primary Care Provider] - 5-7 Days Print Language: [place] Disposition Disposition: Home, Self Care
--- NOTE | 2024-05-14 11:01 | CT_ITS ---
EXAM: CT HEAD WITHOUT INTRAVENOUS CONTRAST CLINICAL INDICATION: Tremor TECHNIQUE: Multiple axial images were obtained of the head without intravenous contrast. This CT exam was performed using one or more of the following dose reduction techniques: automated exposure control, adjustment of the mA and/or kV according to patient size, and/or use of iterative reconstruction technique. RADIATION DOSE: CTDIvol = 44.99 mGy, DLP = 815.79 mGy-cm COMPARISON: CT head without contrast 01/29/2024. FINDINGS: BRAIN AND EXTRA-AXIAL SPACES: Multiple asymmetric hypodensities in the white matter of both cerebral hemispheres are chronic white matter ischemic changes. No midline shift and no mass effects. No intra-axial or extra-axial bleeding. No communicating or noncommunicating hydrocephalus. Moderate cerebral atrophy accounting for the disproportionate dilatation of third and lateral ventricles. Normal cerebral aqueduct and fourth ventricle. Posterior fossa structures are unremarkable. Basal cisterns are patent. BONES/JOINTS: Unremarkable. No discrete lytic or blastic abnormalities. SINUSES: Unremarkable as visualized. Clear. MASTOID AIR CELLS: Unremarkable. Clear. ORBITS: Visualized globes, extraocular muscles, optic nerves and retrobulbar fat appear unremarkable. CT/Brain/Head without Contrast IMPRESSION: 1. No CT evidence of intracranial bleeding, acute ischemic infarct or acute intracranial abnormality. 2. Multiple asymmetric chronic white matter changes in both cerebral hemispheres. 3. No significant interval change when compared to 01/29/2024. Electronically Signed: Dheeraj Castillo MD at 12:11 EST ,
[2024-05-14 11:20] LABS: Absolute Lymphocyte Count 6.63 X10^3/uL (0.83-4.51); Absolute Neutrophil Count 5.9 X10^3/uL (2.0-7.7); Basophil# 0.47 X10^3/uL; Basophil% 3.1 % (0-1); Differential Indicated SCAN CRITERIA MET; Eosinophil# 0.72 X10^3/uL; Eosinophils% 4.8 % (0-5); Hematocrit 36.6 % (37-47); Hemoglobin 11.9 g/dL (12.0-15.0); Lymphocyte # 6.63 X10^3/ul (0.83-4.51); Lymphocyte % 44.2 % (19-41); Mean Corp Hgb Conc 32.5 g/dL (32-36); Mean Corpuscular Hgb 31.1 pg (27.0-32.0); Mean Corpuscular Volume 95.6 fL (81-99); Mean Platelet Vol. 9.8 fl (6.2-12.0); Monocyte# 1.22 X10^3/uL; Monocyte% 8.1 % (0-10); NRBC Flagged by Analyzer 0 % (0-5); Neutrophil # 5.91 X10^3/uL (2.7-7.7); Neutrophil % 39.5 % (47-70); POSITIVE DIFFERENTIAL YES; POSITIVE MORPHOLOGY YES; Platelet Count 377 K/mm3 (150-450); RBC Distribution Width CV 14.1 % (11.6-14.6); RBC Distribution Width SD 49.3 fl (35.1-43.9); Red Blood Count 3.83 M/mm3 (4.2-5.4)
[2024-05-14 11:33] LABS: Bacteria 0 SEEN /hpf (None Seen); Mucous, Urine 0 SEEN /hpf (<or=2+); Red Blood Cells-Urine 0 SEEN /hpf (0-5)
[2024-05-14 11:34] LABS: Color, Urine Yellow (Yellow); Glucose, Dipstick Normal (Normal); Ketone-Dipstick Negative (Negative); Leukocyte Esterase-Dipstick Negative /ul (Negative); Nitrite-Dipstick Negative (Negative); Occult Blood-Urine Negative /ul (Negative); Protein-Dipstick 15 mg/dl (Negative); Urine Bilirubin Dipstick Negative (Negative); Urine Clarity Clear (Clear); Urine Urobilinogen Normal (Normal); Urine pH 6.5 (5.0 - 8.0)
[2024-05-14 11:40] LABS: Squamous Epithelial Cells - UA 0-5 SEEN /hpf (5-10); White Blood Cells 0-5 SEEN /hpf (0-5)
[2024-05-14 11:42] LABS: Atypical Lymphocyte 1+ %
[2024-05-14 11:43] LABS: Acanthocytes 1+; Burr Cells 1+; Platelet Estimate ADEQUATE (ADEQ)
[2024-05-14 11:44] LABS: Schistocytes RARE; Target Cells RARE
[2024-05-14 11:45] LABS: Bite Cell RARE
[2024-05-14 11:46] LABS: Anion Gap 5 (5-15); BUN 27 mg/dL (7-18); BUN/Creat Ratio 22.9 RATIO (10-20); Calcium,Total 9.3 mg/dL (8.5-10.1); Chloride 107 mmol/L (98-107); Creatinine, Serum 1.18 mg/dL (0.55-1.02); EST Glomerular Filtration Rate 46 mL/min (>60); Est Glom Filt Rate - Afr Amer 56 mL/min (>60); Estimated Creatinine Clearance 24.13 ml/min; Glucose 96 mg/dL (74-106); Potassium 4.6 mmol/L (3.5-5.1); Sodium Level 136 mmol/L (136-145)
[2024-05-14 11:57] VITALS: BP 150/81; PULSE 66; RESP 18
[2024-05-14 13:04] VITALS: BP 130/67; PULSE 67; RESP 19; TEMP 36.2; O2SAT 100
== END 2024-05-14 13:05 | disposition home or self-care (01) ==
PROVIDERS: Emergency Provider Emergency Medicine; PCP Family Medicine Geriatric Medicine; Visit Provider Emergency Medicine
DX: G20.C Parkinsonism, unspecified (principal); F02.80 Dementia in other diseases classified elsewhere, unspecified severity, without behavioral disturbance, psychotic disturbance, mood disturbance, and anxiety; N18.30 Chronic kidney disease, stage 3 unspecified; J02.9 Acute pharyngitis, unspecified; I12.9 Hypertensive chronic kidney disease with stage 1 through stage 4 chronic kidney disease, or unspecified chronic kidney disease; E78.5 Hyperlipidemia, unspecified
CPT/HCPCS: 70450; 80048; 81001; 85025; 99285; P9612

== ENCOUNTER → 2024-05-22 | Outpatient (REF) | payer OTHER, SELFPAY ==
[2024-05-22 08:15] LABS: Absolute Lymphocyte Count 7.97 X10^3/uL (0.83-4.51); Absolute Neutrophil Count 3.4 X10^3/uL (2.0-7.7); Basophil# 0.38 X10^3/uL; Basophil% 2.7 % (0-1); Differential Indicated SCAN CRITERIA MET; Eosinophil# 0.97 X10^3/uL; Eosinophils% 6.9 % (0-5); Hemoglobin 11.9 g/dL (12.0-15.0); Lymphocyte # 7.97 X10^3/ul (0.83-4.51); Lymphocyte % 56.5 % (19-41); Mean Corp Hgb Conc 32.2 g/dL (32-36); Mean Corpuscular Hgb 30.8 pg (27.0-32.0); Mean Corpuscular Volume 95.9 fL (81-99); Mean Platelet Vol. 10.3 fl (6.2-12.0); Monocyte# 1.38 X10^3/uL; Monocyte% 9.8 % (0-10); NRBC Flagged by Analyzer 0 % (0-5); Neutrophil # 3.37 X10^3/uL (2.7-7.7); Neutrophil % 23.8 % (47-70); POSITIVE DIFFERENTIAL YES; POSITIVE MORPHOLOGY YES; Platelet Count 366 K/mm3 (150-450); RBC Distribution Width CV 13.9 % (11.6-14.6); RBC Distribution Width SD 49.4 fl (35.1-43.9); Red Blood Count 3.86 M/mm3 (4.2-5.4); White Blood Count 14.1 K/mm3 (4.4-11.0)
[2024-05-22 08:44] LABS: Reactive Lymphocyte 1+
[2024-05-22 08:45] LABS: Anion Gap 5 (5-15); BUN 26 mg/dL (7-18); BUN/Creat Ratio 24.3 RATIO (10-20); Calcium,Total 9.2 mg/dL (8.5-10.1); Chloride 106 mmol/L (98-107); Creatinine, Serum 1.07 mg/dL (0.55-1.02); EST Glomerular Filtration Rate 51 mL/min (>60); Est Glom Filt Rate - Afr Amer 62 mL/min (>60); Glucose 82 mg/dL (74-106); Potassium 4.5 mmol/L (3.5-5.1); Sodium Level 138 mmol/L (136-145)
== END ==
LOC: OLS.WHLEAS 05:00
PROVIDERS: PCP Family Medicine Geriatric Medicine; Visit Provider Internal Medicine
DX: N18.30 Chronic kidney disease, stage 3 unspecified (principal)
CPT/HCPCS: 36415; 80048; 85025

== ENCOUNTER → 2024-06-10 | Outpatient (REF) | payer OTHER, SELFPAY ==
[2024-06-10 07:50] LABS: Cholesterol 214 mg/dL (200); High Density Lipoprotein 49 mg/dL; Triglycerides 192 mg/dL; Very Low Density Lipoprotein 38 mg/dL (5-40)
== END ==
LOC: OLS.WHLEAS 05:00
PROVIDERS: PCP Family Medicine Geriatric Medicine; Visit Provider Internal Medicine
DX: E78.5 Hyperlipidemia, unspecified (principal)
CPT/HCPCS: 36415; 80061

== ENCOUNTER → 2024-06-19 05:00 | Outpatient (REF) | payer MEDICARE, SELFPAY ==
[2024-06-19 09:08] LABS: Absolute Lymphocyte Count 7.98 X10^3/uL (0.83-4.51); Absolute Neutrophil Count 4.2 X10^3/uL (2.0-7.7); Basophil# 0.47 X10^3/uL; Eosinophil# 1.59 X10^3/uL; Eosinophils% 10.2 % (0-5); Hematocrit 35.4 % (37-47); Hemoglobin 11.3 g/dL (12.0-15.0); Lymphocyte # 7.98 X10^3/ul (0.83-4.51); Lymphocyte % 51.1 % (19-41); Mean Corp Hgb Conc 31.9 g/dL (32-36); Mean Corpuscular Hgb 30.9 pg (27.0-32.0); Mean Corpuscular Volume 96.7 fL (81-99); Mean Platelet Vol. 9.9 fl (6.2-12.0); Monocyte# 1.37 X10^3/uL; Monocyte% 8.8 % (0-10); NRBC Flagged by Analyzer 0 % (0-5); Neutrophil # 4.18 X10^3/uL (2.7-7.7); Neutrophil % 26.6 % (47-70); POSITIVE DIFFERENTIAL YES; POSITIVE MORPHOLOGY YES; Platelet Count 414 K/mm3 (150-450); RBC Distribution Width CV 13.7 % (11.6-14.6); RBC Distribution Width SD 48.9 fl (35.1-43.9); Red Blood Count 3.66 M/mm3 (4.2-5.4); White Blood Count 15.6 K/mm3 (4.4-11.0)
[2024-06-19 09:33] LABS: Anion Gap 7 (5-15); BUN 29 mg/dL (7-18); BUN/Creat Ratio 26.6 RATIO (10-20); Calcium,Total 8.9 mg/dL (8.5-10.1); Chloride 105 mmol/L (98-107); Creatinine, Serum 1.09 mg/dL (0.55-1.02); EST Glomerular Filtration Rate 50 mL/min (>60); Est Glom Filt Rate - Afr Amer 61 mL/min (>60); Glucose 81 mg/dL (74-106); Potassium 4.2 mmol/L (3.5-5.1); Sodium Level 137 mmol/L (136-145)
[2024-06-19 09:36] LABS: Differential Indicated SCAN CRITERIA MET
[2024-06-19 10:29] LABS: Atypical Lymphocyte 2+ %; Platelet Estimate SLT INC (ADEQ)
[2024-06-19 10:30] LABS: Acanthocytes RARE; Anisocytosis 1+; Howell-Jolly Body 1+; Ovalocyte 1+; Target Cells RARE
== END ==
LOC: OLS.WHLEAS 05:00
PROVIDERS: PCP Family Medicine Geriatric Medicine; Visit Provider Internal Medicine
DX: N18.30 Chronic kidney disease, stage 3 unspecified (principal)
CPT/HCPCS: 36415; 80048; 85025

== ENCOUNTER → 2024-06-26 | Outpatient (REF) | payer MEDICARE, SELFPAY ==
[2024-06-26 10:02] LABS: AST(SGOT) 30 U/L (15-37); Alanine Aminotransfer ALT/SGPT 17 U/L (13-56); Albumin, Serum 3.2 g/dL (3.2-5.0); Alkaline Phosphatase 162 U/L (45-117); Globulin 3.3 g/dL (2.2-4.2); Protein, Total 6.5 g/dL (6.4-8.2)
[2024-06-26 10:14] LABS: Vitamin B12 963 pg/mL (211-911); Vitamin D,25 Hydroxy 40.6 ng/mL
== END ==
LOC: OLS.WHLEAS 05:45
PROVIDERS: PCP Family Medicine Geriatric Medicine; Visit Provider Internal Medicine
DX: E78.5 Hyperlipidemia, unspecified (principal)
CPT/HCPCS: 36415; 80076; 82306; 82607

== ENCOUNTER → 2024-07-17 05:00 | Outpatient (REF) | payer MEDICARE, SELFPAY ==
[2024-07-17 08:32] LABS: Absolute Lymphocyte Count 8.58 X10^3/uL (0.83-4.51); Absolute Neutrophil Count 4.1 X10^3/uL (2.0-7.7); Basophil# 0.49 X10^3/uL; Basophil% 3.1 % (0-1); Eosinophil# 1.31 X10^3/uL; Eosinophils% 8.2 % (0-5); Hematocrit 36.1 % (37-47); Lymphocyte # 8.58 X10^3/ul (0.83-4.51); Lymphocyte % 53.6 % (19-41); Mean Corp Hgb Conc 33.2 g/dL (32-36); Mean Corpuscular Hgb 31.7 pg (27.0-32.0); Mean Corpuscular Volume 95.3 fL (81-99); Monocyte# 1.48 X10^3/uL; Monocyte% 9.2 % (0-10); NRBC Flagged by Analyzer 0 % (0-5); Neutrophil % 25.6 % (47-70); POSITIVE DIFFERENTIAL YES; POSITIVE MORPHOLOGY YES; Platelet Count 335 K/mm3 (150-450); RBC Distribution Width CV 13.6 % (11.6-14.6); RBC Distribution Width SD 47.9 fl (35.1-43.9); Red Blood Count 3.79 M/mm3 (4.2-5.4)
[2024-07-17 08:38] LABS: Differential Indicated SCAN CRITERIA MET
[2024-07-17 09:07] LABS: Anion Gap 7 (5-15); BUN 28 mg/dL (7-18); BUN/Creat Ratio 23.9 RATIO (10-20); Calcium,Total 9.1 mg/dL (8.5-10.1); Chloride 106 mmol/L (98-107); Creatinine, Serum 1.17 mg/dL (0.55-1.02); EST Glomerular Filtration Rate 46 mL/min (>60); Est Glom Filt Rate - Afr Amer 56 mL/min (>60); Glucose 85 mg/dL (74-106); Potassium 4.2 mmol/L (3.5-5.1); Sodium Level 139 mmol/L (136-145)
[2024-07-17 10:56] LABS: Reactive Lymphocyte 1+
== END ==
LOC: OLS.WHLEAS 05:00
PROVIDERS: PCP Family Medicine Geriatric Medicine; Visit Provider Internal Medicine
DX: N18.30 Chronic kidney disease, stage 3 unspecified (principal)
CPT/HCPCS: 36415; 80048; 85025

== ENCOUNTER → 2024-08-14 | Outpatient (REF) | payer MEDICARE, SELFPAY ==
[2024-08-14 08:35] LABS: Absolute Lymphocyte Count 7.18 X10^3/uL (0.83-4.51); Absolute Neutrophil Count 3.4 X10^3/uL (2.0-7.7); Basophil% 3.1 % (0-1); Eosinophil# 0.53 X10^3/uL; Eosinophils% 4.1 % (0-5); Hemoglobin 11.5 g/dL (12.0-15.0); Lymphocyte # 7.18 X10^3/ul (0.83-4.51); Lymphocyte % 55.1 % (19-41); Mean Corp Hgb Conc 32.9 g/dL (32-36); Mean Corpuscular Hgb 31.9 pg (27.0-32.0); Mean Corpuscular Volume 97.2 fL (81-99); Monocyte# 1.48 X10^3/uL; Monocyte% 11.4 % (0-10); NRBC Flagged by Analyzer 0 % (0-5); Neutrophil % 26.1 % (47-70); POSITIVE DIFFERENTIAL YES; POSITIVE MORPHOLOGY YES; Platelet Count 372 K/mm3 (150-450); RBC Distribution Width CV 13.4 % (11.6-14.6); RBC Distribution Width SD 48.2 fl (35.1-43.9)
[2024-08-14 08:38] LABS: Differential Indicated SCAN CRITERIA MET
[2024-08-14 09:09] LABS: Reactive Lymphocyte 2+
[2024-08-14 11:01] LABS: Anion Gap 12 (5-15); BUN 29 mg/dL (4-19); Calcium 9.5 mg/dL (7.6-11.0); Carbon Dioxide 22.8 mmol/L (22.0-29.0); Chloride 104 mmol/L (96-108); EST Glomerular Filtration Rate 54 (>60); Glucose 85 mg/dL (70-99); Potassium 4.5 mmol/L (3.3-5.1); Sodium Level 138 mmol/L (133-145)
== END ==
LOC: OLS.WHLEAS 04:00
PROVIDERS: PCP Family Medicine Geriatric Medicine; Referring Provider Internal Medicine; Visit Provider Internal Medicine
DX: N18.30 Chronic kidney disease, stage 3 unspecified (principal)
CPT/HCPCS: 36415; 80048; 85025

== ENCOUNTER → 2024-09-11 | Outpatient (REF) | payer MEDICARE, SELFPAY ==
[2024-09-11 07:40] LABS: Absolute Lymphocyte Count 6.28 X10^3/uL (0.83-4.51); Absolute Neutrophil Count 4.3 X10^3/uL (2.0-7.7); Basophil# 0.45 X10^3/uL; Basophil% 3.2 % (0-1); Eosinophil# 1.47 X10^3/uL; Eosinophils% 10.6 % (0-5); Hematocrit 37.5 % (37-47); Hemoglobin 12.2 g/dL (12.0-15.0); Lymphocyte # 6.28 X10^3/ul (0.83-4.51); Lymphocyte % 45.1 % (19-41); Mean Corp Hgb Conc 32.5 g/dL (32-36); Mean Corpuscular Volume 98.4 fL (81-99); Monocyte# 1.37 X10^3/uL; Monocyte% 9.8 % (0-10); NRBC Flagged by Analyzer 0 % (0-5); Neutrophil # 4.31 X10^3/uL (2.7-7.7); POSITIVE DIFFERENTIAL YES; POSITIVE MORPHOLOGY YES; Platelet Count 267 K/mm3 (150-450); RBC Distribution Width CV 13.3 % (11.6-14.6); RBC Distribution Width SD 47.8 fl (35.1-43.9); Red Blood Count 3.81 M/mm3 (4.2-5.4); White Blood Count 13.9 K/mm3 (4.4-11.0)
[2024-09-11 07:49] LABS: Differential Indicated SCAN CRITERIA MET
[2024-09-11 08:14] LABS: Anion Gap 9 (5-15); BUN 28 mg/dL (4-19); BUN/Creat Ratio 27.1 RATIO (10-20); Calcium,Total 9.3 mg/dL (7.6-11.0); Carbon Dioxide 25.4 mmol/L (21.0-32.0); Chloride 104 mmol/L (98-108); Creatinine, Serum 1.02 mg/dL (0.70-1.20); EST Glomerular Filtration Rate 53 (>60); Glucose 83 mg/dL (70-99); Potassium 4.5 mmol/L (3.3-5.1); Sodium Level 138 mmol/L (133-145)
[2024-09-11 10:15] LABS: Platelet Estimate A (ADEQ); Reactive Lymphocyte 1+
== END ==
LOC: OLS.WHLEAS 05:00
PROVIDERS: PCP Family Medicine Geriatric Medicine; Visit Provider Internal Medicine
DX: N18.30 Chronic kidney disease, stage 3 unspecified (principal)
CPT/HCPCS: 36415; 80048; 85025

== ENCOUNTER → 2024-09-18 | Outpatient (REF) | payer MEDICARE, SELFPAY ==
[2024-09-18 08:29] LABS: Absolute Lymphocyte Count 6.98 X10^3/uL (0.83-4.51); Absolute Neutrophil Count 4.3 X10^3/uL (2.0-7.7); Basophil# 0.44 X10^3/uL; Basophil% 2.9 % (0-1); Eosinophil# 2.03 X10^3/uL; Eosinophils% 13.4 % (0-5); Hematocrit 34.5 % (37-47); Hemoglobin 11.4 g/dL (12.0-15.0); Lymphocyte # 6.98 X10^3/ul (0.83-4.51); Lymphocyte % 46.1 % (19-41); Mean Corpuscular Hgb 31.9 pg (27.0-32.0); Mean Corpuscular Volume 96.6 fL (81-99); Mean Platelet Vol. 10.4 fl (6.2-12.0); Monocyte# 1.33 X10^3/uL; Monocyte% 8.8 % (0-10); NRBC Flagged by Analyzer 0 % (0-5); Neutrophil # 4.31 X10^3/uL (2.7-7.7); Neutrophil % 28.5 % (47-70); POSITIVE DIFFERENTIAL YES; POSITIVE MORPHOLOGY YES; Platelet Count 328 K/mm3 (150-450); RBC Distribution Width CV 13.2 % (11.6-14.6); RBC Distribution Width SD 46.9 fl (35.1-43.9); Red Blood Count 3.57 M/mm3 (4.2-5.4); White Blood Count 15.1 K/mm3 (4.4-11.0)
[2024-09-18 08:54] LABS: Differential Indicated SCAN CRITERIA MET
[2024-09-18 09:05] LABS: AST(SGOT) 41 U/L (<=31); Alanine Aminotransfer ALT/SGPT 5 U/L (<=34); Albumin, Serum 3.8 g/dL (3.4-4.8); Alkaline Phosphatase 142 U/L (35-104); Anion Gap 12 (5-15); BUN 26 mg/dL (4-19); BUN/Creat Ratio 21.8 RATIO (10-20); Bilirubin, Direct 0.19 mg/dL (0.00-0.30); Calcium,Total 9.1 mg/dL (7.6-11.0); Carbon Dioxide 21.8 mmol/L (21.0-32.0); Chloride 104 mmol/L (98-108); Creatinine, Serum 1.19 mg/dL (0.70-1.20); EST Glomerular Filtration Rate 44 (>60); Globulin 2.7 g/dL (2.2-4.2); Glucose 83 mg/dL (70-99); Potassium 4.5 mmol/L (3.3-5.1); Protein, Total 6.5 g/dL (5.9-8.4); Sodium Level 137 mmol/L (133-145); Total Bilirubin 0.42 mg/dL (0.00-1.30); Vitamin B12 1000 pg/mL (180-914)
== END ==
LOC: OLS.WHLEAS 05:00
PROVIDERS: PCP Family Medicine Geriatric Medicine; Visit Provider Internal Medicine
DX: E78.5 Hyperlipidemia, unspecified (principal); R53.83 Other fatigue; G20.A1 Parkinson's disease without dyskinesia, without mention of fluctuations; F02.80 Dementia in other diseases classified elsewhere, unspecified severity, without behavioral disturbance, psychotic disturbance, mood disturbance, and anxiety
CPT/HCPCS: 36415; 80048; 80076; 82306; 82607; 85025

== ENCOUNTER → 2024-10-22 | Outpatient (REF) | payer MEDICARE, SELFPAY ==
[2024-10-22 09:15] LABS: Absolute Lymphocyte Count 6.78 X10^3/uL (0.83-4.51); Absolute Neutrophil Count 3.8 X10^3/uL (2.0-7.7); Basophil# 0.48 X10^3/uL; Basophil% 3.5 % (0-1); Differential Indicated SCAN CRITERIA MET; Eosinophil# 1.43 X10^3/uL; Eosinophils% 10.4 % (0-5); Hematocrit 35.2 % (37-47); Hemoglobin 11.6 g/dL (12.0-15.0); Lymphocyte # 6.78 X10^3/ul (0.83-4.51); Lymphocyte % 49.3 % (19-41); Mean Corpuscular Hgb 31.7 pg (27.0-32.0); Mean Corpuscular Volume 96.2 fL (81-99); Mean Platelet Vol. 10.3 fl (6.2-12.0); Monocyte# 1.25 X10^3/uL; Monocyte% 9.1 % (0-10); NRBC Flagged by Analyzer 0 % (0-5); Neutrophil # 3.76 X10^3/uL (2.7-7.7); Neutrophil % 27.4 % (47-70); POSITIVE DIFFERENTIAL YES; POSITIVE MORPHOLOGY YES; Platelet Count 346 K/mm3 (150-450); RBC Distribution Width CV 13.2 % (11.6-14.6); RBC Distribution Width SD 47.1 fl (35.1-43.9); Red Blood Count 3.66 M/mm3 (4.2-5.4); White Blood Count 13.7 K/mm3 (4.4-11.0)
[2024-10-22 09:31] LABS: ALB/GLOB Ratio 1.4 RATIO (0.9-2.4); AST(SGOT) 38 U/L (<=31); Alanine Aminotransfer ALT/SGPT 19 U/L (<=34); Alkaline Phosphatase 173 U/L (35-104); Anion Gap 10 (5-15); BUN 28 mg/dL (4-19); BUN/Creat Ratio 29.8 RATIO (10-20); Calcium,Total 9.3 mg/dL (7.6-11.0); Carbon Dioxide 23.1 mmol/L (21.0-32.0); Chloride 104 mmol/L (98-108); Creatinine, Serum 0.92 mg/dL (0.70-1.20); EST Glomerular Filtration Rate 60 (>60); Globulin 2.8 g/dL (2.2-4.2); Glucose 90 mg/dL (70-99); Potassium 4.4 mmol/L (3.3-5.1); Protein, Total 6.8 g/dL (5.9-8.4); Sodium Level 137 mmol/L (133-145)
[2024-10-22 10:39] LABS: Reactive Lymphocyte 3+
[2024-10-22 10:40] LABS: Acanthocytes 1+; Tear Drop Cell 1+
[2024-10-22 10:41] LABS: Platelet Estimate A (ADEQ)
[2024-11-06 10:24] LABS: Pathologist Review Reviewed
== END ==
LOC: OLS.WHLTSB 05:00
PROVIDERS: PCP Family Medicine Geriatric Medicine; Visit Provider Internal Medicine
DX: N18.30 Chronic kidney disease, stage 3 unspecified (principal); G20.C Parkinsonism, unspecified
CPT/HCPCS: 36415; 80053; 85025

== ENCOUNTER → 2024-10-23 04:00 | Outpatient (REF) | payer MEDICARE, SELFPAY ==
[2024-10-23 08:27] LABS: Absolute Lymphocyte Count 6.66 X10^3/uL (0.83-4.51); Absolute Neutrophil Count 3.5 X10^3/uL (2.0-7.7); Basophil# 0.44 X10^3/uL; Basophil% 3.1 % (0-1); Eosinophil# 2.13 X10^3/uL; Eosinophils% 14.9 % (0-5); Hematocrit 35.2 % (37-47); Hemoglobin 11.6 g/dL (12.0-15.0); Lymphocyte # 6.66 X10^3/ul (0.83-4.51); Lymphocyte % 46.7 % (19-41); Mean Corpuscular Hgb 32.1 pg (27.0-32.0); Mean Corpuscular Volume 97.5 fL (81-99); Mean Platelet Vol. 10.2 fl (6.2-12.0); Monocyte# 1.52 X10^3/uL; Monocyte% 10.7 % (0-10); NRBC Flagged by Analyzer 0 % (0-5); Neutrophil # 3.48 X10^3/uL (2.7-7.7); Neutrophil % 24.4 % (47-70); POSITIVE DIFFERENTIAL YES; POSITIVE MORPHOLOGY YES; Platelet Count 339 K/mm3 (150-450); RBC Distribution Width CV 13.1 % (11.6-14.6); RBC Distribution Width SD 47.2 fl (35.1-43.9); Red Blood Count 3.61 M/mm3 (4.2-5.4); White Blood Count 14.3 K/mm3 (4.4-11.0)
[2024-10-23 08:56] LABS: AST(SGOT) 44 U/L (<=31); Alanine Aminotransfer ALT/SGPT 15 U/L (<=34); Albumin, Serum 3.8 g/dL (3.4-4.8); Alkaline Phosphatase 176 U/L (35-104); Anion Gap 10 (5-15); BUN 33 mg/dL (4-19); BUN/Creat Ratio 33.7 RATIO (10-20); Bilirubin, Direct 0.14 mg/dL (0.00-0.30); Calcium,Total 9.1 mg/dL (7.6-11.0); Chloride 103 mmol/L (98-108); Cholesterol 196 mg/dL (<=200); Creatinine, Serum 0.97 mg/dL (0.70-1.20); EST Glomerular Filtration Rate 56 (>60); Globulin 2.6 g/dL (2.2-4.2); Glucose 85 mg/dL (70-99); High Density Lipoprotein 48 mg/dL; Low Density Lipoprotein Calc. 123 mg/dL; Potassium 4.5 mmol/L (3.3-5.1); Protein, Total 6.5 g/dL (5.9-8.4); Sodium Level 137 mmol/L (133-145); Total Bilirubin 0.35 mg/dL (0.00-1.30); Triglycerides 126 mg/dL; Very Low Density Lipoprotein 25 mg/dL (5-40); Vitamin B12 1049 pg/mL (180-914); Vitamin D,25 Hydroxy 48.5 ng/mL (30-100); cholesterol:hdl ratio screen 4.11
[2024-10-23 11:24] LABS: Differential Indicated SCAN CRITERIA MET
== END ==
LOC: OLS.WHLTSB 04:00
PROVIDERS: PCP Family Medicine Geriatric Medicine; Referring Provider Internal Medicine; Visit Provider Internal Medicine
DX: N18.30 Chronic kidney disease, stage 3 unspecified (principal); E78.5 Hyperlipidemia, unspecified
CPT/HCPCS: 36415; 80048; 80061; 80076; 82306; 82607; 85025

== ENCOUNTER → 2024-11-27 05:00 | Outpatient (REF) | payer MEDICARE, SELFPAY ==
--- OUTSIDE RECORDS SUMMARY | 2024-11-27 04:25 | XMS RPT_ITS | CCD ---
Author Organization [facility]iniSynv Care Team Providers [facility] Psychiatrist Name Role Phone FARHAD Reagan, Amy Mao Unavailable Unavailabl carlito Reagan RN, Amy Mao Unavailable Jassonabl e Shannan Zimmerman Primary Care Provider Erasmo MASON, Shannan Primary Care Provider [phone] Howard Zimmerman Chi Primary Care Provider [phone] ERASMO MASON, DR JONES Primary Care Physician Ivan DURON, Sadaf Unavailable Unavailable Dr. Howard Zimmerman Chi Primary Care Provider Erasmo, Dr. Howard Morris Referring Provider Dr. Bart Olivarez Attending Provider [phone] Howard Zimmerman Chi Primary Care Provider Howard Zimmerman Chi Primary Care Provider [phone] Erasmo, Dr. Howard Morris Primary Care Provider Erasmo, Dr. Howard Morris Referring Provider NANNETTE Chung Attending Provider Dr. Howard Zimmerman Chi Primary Care Provider Erasmo, Dr. Howard Morris Referring Provider NANNETTE Chung Attending Provider Howard Zimmerman Chi Primary Care Provider Rogelio JOHNSON, TON CONTAINER SHIPPER-C Rhoda Other Provider NANNETTE Edwards Attending Provider [phone] Erasmo, Dr. Howard Morris Primary Care Provider Rogelio JOHNSON, TON CONTAINER SHIPPER-C Rhoda Other Provider Yadira BRUNSON, PA Paige Attending Provider Erasmo, Dr. Howard Morris Primary Care Provider Erasmo, Dr. Howard Morris Referring Provider Dr. Tiago Vigil Attending Provider [phone] Meghann Santos Attending Provider Carlos, Dr. Brown Emergency Provider Tereletsnacho, Dr. Gonzalez Kilpatrickit Provider Tereletsnacho, Dr. Roth Attending Provider Tereletsnacho, Dr. Roth Other Provider ERASMO, HOWARD MORRIS Primary Care Unavailable CHUCKIEINSRIDEVI Referring Unavailable Erasmo, Dr. Howard Morris Primary Care Provider Erasmo, Dr. Howard Morris Referring Provider Dr. Tiago Vigil Attending Provider [phone] Meghann Santos Attending Provider Carlos, Dr. Brown Emergency Provider Tercayetano, Dr. Gonzalez Kilpatrickit Provider TereletsDr. Gonzalez griffith Attending Provider Tereletsky, Dr. Roth Other Provider Erasmo, Dr. Howard Morris Primary Care Provider Erasmo, Dr. Howard Morris Primary Care Provider Dr. Stephanie Gonzalez Emergency Provider Tercayetano, Dr. Gonzalez Kilpatrickit Provider Tereletsnacho, Dr. Roth Attending Provider Tereletsky, Dr. Roth Other Provider Erasmo, Dr. Howard Morris Primary Care Provider Dr. Myrna Munguia Emergency Provider Dr. Daisy Mack Attending Provider Yaritza, Dr. Tiago Attending Provider Dr. Daisy Mack Admit Provider Dr. Daisy Mack Other Provider MD Carlos Whipple Other Provider Unavailable Dr. Karen Mckeon Other Provider MD Darcy Hernandez Other Provider Unavailable Dr. Paige Martinez Other Provider [phone] Dr. Farzana Levin Other Provider Dr. Timothy Fortune Other Provider [phone] Dr. Cherie Mark Other Provider Dr. Jose Benson Other Provider Dr. Isiah Kelly Other Provider MD Eri Interiano Other Provider Dr. Vincent Suresh Other Provider [phone] Dr. Alayna Valverde Other Provider Dr. Ruy Sun Other Provider [phone] Dr. Elian Stroud Other Provider Dr. John Quesada Other Provider [phone] Dr. Pamela Kamara Other Provider Dr. Jonathon Rodríguez Other Provider [phone] Dr. Mallika Pinon Other Provider Unavailable MD Roopa Tolbert Other Provider Unavailable Dr. Avel Massey Attending Provider Dr. Avel Massey Other Provider Dr. Avel Massey Referring Provider Dr. Howard Zimmerman Chi Primary Care Provider Dr. Myrna Munguia Emergency Provider Dr. Daisy Mack Attending Provider Dr. Tiago Vigil Attending Provider Dr. Daisy Mack Admit Provider Dr. Daisy Mack Other Provider MD Carlos Whipple Other Provider Unavailable Dr. Karen Mckeon Other Provider MD Darcy Hernandez Other Provider Unavailable Dr. Paige Martinez Other Provider [phone] Dr. Farzana Levin Other Provider Dr. Timothy Fortune Other Provider [phone] Dr. Cherie Mark Other Provider Dr. Jose Benson Other Provider Dr. Isiah Kelly Other Provider MD Eri Interiano Other Provider Dr. Vincent Suresh Other Provider Dr. Alayna Valverde Other Provider Dr. Ruy Sun Other Provider [phone] Dr. Elian Stroud Other Provider Dr. John Quesada Other Provider Dr. Pamela Kamara Other Provider Dr. Jonathon Rodríguez Other Provider [phone] Dr. Mallika Pinon Other Provider Unavailable MD Roopa Tolbert Other Provider Unavailable Dr. Avel Massey Attending Provider Dr. Avel Massey Other Provider Dr. Avel Massey Referring Provider Dr. Germán Benson Emergency Provider Dr. Gonzalez Garza Admit Provider Dr. Gonzalez Garza Attending Provider Dr. Gonzalez Garza Other Provider Dr. Maame Pinon Attending Provider Dr. Maame Pinon Other Provider MD Vilma Shine Other Provider Mike, MS Koko Other Provider MD Ashlee Bautista Other Provider MD ERIC BATRES Other Provider MD Reji Reid Other Provider MD Marly Ochoa Other Provider Dr. Howard Zimmerman Chi Referring Provider Rekha BRUNSON, PA Julsisa Mao Attending Provider Howard Zimmemran Chi Primary Care Provider Dr. Howard Zimmerman Chi Primary Care Provider Dr. Myrna Munguia Emergency Provider [phone] Daisy Mack Attending Provider [phone] Tiago Vigil Attending Provider Dr. Daisy Mack Admit Provider Dr. Daisy Mack Other Provider MD Carlos Whipple Other Provider Unavailable Dr. Karen Mckeon Other Provider MD Darcy Hernandez Other Provider Unavailable Dr. Paige Martinez Other Provider Dr. Farzana Levin Other Provider Dr. Timothy Fortune Other Provider [phone] Dr. Cherie Mark Other Provider Dr. Jose Benson Other Provider Dr. Isiah Kelly Other Provider MD Eri Interiano Other Provider Dr. Vincent Suresh Other Provider Dr. Alayna Valverde Other Provider Dr. Ruy Sun Other Provider [phone] Dr. Elian Stroud Other Provider Dr. John Quesada Other Provider Dr. Pamela Kamara Other Provider Dr. Jonathon Rodríguez Other Provider Dr. Mallika Pinon Other Provider Unavailable MD Roopa Tolbert Other Provider Unavailable Dr. Avel Massey Attending Provider Dr. Avel Massey Other Provider Dr. Avel Massey Referring Provider Dr. Germán Benson Emergency Provider Dr. Gonzalez Garza Admit Provider Dr. Gonzalez Garza Attending Provider Dr. Gonzalez Garza Other Provider Dr. Maame Pinon Attending Provider Dr. Maame Pinon Other Provider MD Vilma Shine Other Provider Mike, MS Koko Other Provider MD Ashlee Bautista Other Provider [phone] MD ERIC BATRES Other Provider MD Reji Reid Other Provider [phone] MD Marly Ochoa Other Provider Dr. Howard Zimmerman Chi Referring Provider Rekha BRUNSON, PA Julissa Mao Attending Provider Dr. Howard Zimmerman Chi Primary Care Provider Dr. Tiago Vigil Attending Provider Dr. Karen Mckeon Other Provider Dr. Farzana Levin Other Provider MD Eri Interiano Other Provider Dr. Alayna Valverde Other Provider MD Carlos Whipple Other Provider Unavailable MD Darcy Hernandez Other Provider Unavailable Dr. Paige Martinez Other Provider Dr. Timothy Fortune Other Provider Dr. Cherie Mark Other Provider Dr. Jose Benson Other Provider Dr. Isiah Kelly Other Provider Dr. Vincent Suresh Other Provider Dr. Ruy Sun Other Provider Dr. Elian Stroud Other Provider Dr. John Quesada Other Provider Dr. Pamela Kamara Other Provider Dr. Jonathon Rodríguez Other Provider Dr. Mallika Pinon Other Provider Unavailable MD Roopa Tolbert Other Provider Unavailable Dr. Howard Zimmerman MD, Chi Primary Care Provider Odalis Saravia MD Attending Provider Unavaila ashly Pack TON CONTAINER SHIPPER-CPam Attending Provider Dr. Odalis Saravia MD Attending Provider Odalis Saravia MD Referring Provider UnavailDr. Howard Nielson MD, Chi Primary Care Provider Odalis Saravia MD Attending Provider Unavaila ble Ramone TON CONTAINER SHIPPER-CPam Attending Provider SELVIN FELDER Attending Unavailable SELVIN FELDER Referring Unavailable ERASMO, HOWARD CHI Primary Care Unavailable SELVIN FELDER Attending Unavailable BRADFORD SELVIN Referring Unavailable ERASMO, HOWARD CHI Primary Care Unavailable Dr. Howard Zimmerman MD, Chi Primary Care Provider Odalis Saravia MD Attending Provider UnavailDr. Odalis Stuart MD Attending Provider Odalis Rothman Attending Unavailabl e Oleghe, Efewongbe Primary Care Unavailable Erasmo, Howard Chi Primary Care Unavailable Oleghe OLS, Efewongbe Attending UnavailNaresh Park Attending Unavailable Ethan Kim Consulting Unavailable Ethan Kim Admitting Unavailable Oleghe, Efewongbe Primary Care Unavailable Adrien Baez Consulting Unavailable Osiel Sims Consulting Unavailable Oleghe, Efewongbe Primary Care Unavailable Oleghe OLS, Efewongbe Attending Unavailabl e Oleghe OLS, Efewongbe Attending Unavailabl e Oleghe, Efewongbe Primary Care Unavailable Oleghe, Efewongbe Primary Care Unavailable Oleghe OLS, Efewongbe Attending Unavailabl e Oleghe OLS, Efewongbe Attending Unavailabl e Oleghe, Efewongbe Primary Care Unavailable Oleghe OLS, Efewongbe Attending Unavailabl e Oleghe, Efewongbe Primary Care Unavailable Erasmo, Howard Chi Primary Care Unavailable Oleghe OLS, Efewongbe Attending Unavailabl Peter Lucas Attending Unavailable Oleghe, Efewongbe Primary Care Unavailable Erasmo, Howard Chi Primary Care Unavailable Joel Mccarthy Attending Unavailable Oleghe OLS, Efewongbe Attending Unavailabl e Oleghe, Efewongbe Primary Care Unavailable Erasmo, Howard Chi Primary Care Unavailable Oleghe OLS, Efewongbe Referring Unavailabl e Oleghe OLS, Efewongbe Attending Unavailabl e Erasmo, Howard Chi Primary Care Unavailable Oleghe OLS, Efewongbe Attending Unavailabl e Erasmo, Howard Chi Primary Care Unavailable Oleghe OLS, Efewongbe Attending Unavailabl e Erasmo, Howard Chi Primary Care Unavailable Oleghe OLS, Efewongbe Attending Unavailabl e Erasmo, Howard Chi Primary Care Unavailable Oleghe OLS, Efewongbe Attending Unavailabl e Oleghe, Efewongbe Primary Care Unavailable Oleghe OLS, Efewongbe Attending Unavailabl e Oleghe, Efewongbe Primary Care Unavailable Oleghe OLS, Efewongbe Attending Unavailabl e Oleghe, Efewongbe Primary Care Unavailable Umesh Velázquez Attending Unavailable Pam Pack NP Attending Unavailable Erasmo, Howard Chi Primary Care Unavailable Erasmo, Howard Chi Primary Care Unavailable Oleghe OLS, Efewongbe Attending Unavailabl e Oleghe OLS, Efewongbe Attending Unavailabl e Oleghe, Efewongbe Primary Care Unavailable Oleghe OLS, Efewongbe Referring Unavailabl e Oleghe OLS, Efewongbe Attending Unavailabl e Oleghe, Efewongbe Primary Care Unavailable Oleghe, Efewongbe Attending Unavailable Oleghe, Efewongbe Primary Care Unavailable Tickton TON CONTAINER SHIPPER, Pam Attending Unavailable Erasmo, Howard Chi Primary Care Unavailable Tickton TON CONTAINER SHIPPER, Pam Attending Unavailable Oleghe, Efewongbe Primary Care Unavailable [place]ickton TON CONTAINER SHIPPER, Pam Attending Unavailable Oleghe, Efewongbe Primary Care Unavailable [place]ton TON CONTAINER SHIPPER, Pam Attending Unavailable Erasmo, Howard Chi Primary Care Unavailable Naresh Blancahrd Attending Unavailable Ethan Kim Admitting Unavailable Ethan Kim Consulting Unavailable Oleghe, Efewongbe Primary Care Unavailable Adrien Baez Consulting Unavailable Osiel Sims Consulting Unavailable Naresh Blanchard Consulting Unavailable Osiel Sims Attending Unavailable Ethan Kim Attending Unavailable Ethan Kim Referring Unavailable Eric Shearer Attending Unavailable Oleghe, Efewongbe Primary Care Unavailable Erasmo, Howard Chi Primary Care Unavailable Oleghe, Efewongbe Attending Unavailable Tickton TON CONTAINER SHIPPER, Pam Attending Unavailable Erasmo, Howard Chi Primary Care Unavailable Erasmo, Howard Chi Primary Care Unavailable Oleghe, Efewongbe Attending Unavailable [place]ickton TON CONTAINER SHIPPER, Pam Attending Unavailable Oleghe, Efewongbe Primary Care Unavailable [place]ickton TON CONTAINER SHIPPER, Pam Attending Unavailable Oleghe, Efewongbe Primary Care Unavailable Oleghe, Efewongbe Attending Unavailable Oleghe, Efewongbe Primary Care Unavailable Erasmo, Howard Chi Primary Care Unavailable Oleghe, Efewongbe Attending Unavailable [place]ickton TON CONTAINER SHIPPER, Pam Attending Unavailable Erasmo, Howard Chi Primary Care Unavailable Erasmo, Howard Chi Primary Care Unavailable Oleghe, Efewongbe Attending Unavailable Oleghe OLS, Efewongbe Referring Unavailabl e Oleghe OLS, Efewongbe Attending Unavailabl e Oleghe, Efewongbe Primary Care Unavailable Oleghe OLS, Efewongbe Attending Unavailabl e Oleghe, Efewongbe Primary Care Unavailable Oleghe OLS, Efewongbe Attending Unavailabl e Oleghe, Efewongbe Primary Care Unavailable Oleghe OLS, Efewongbe Referring Unavailabl e Oleghe OLS, Efewongbe Attending Unavailabl e Oleghe, Efewongbe Primary Care Unavailable Oleghe OLS, Efewongbe Attending Unavailabl e Oleghe, Efewongbe Primary Care Unavailable Oleghe, Efewongbe Primary Care Unavailable Oleghe OLS, Efewongbe Attending Unavailabl e Erasmo, Howard Chi Primary Care Unavailable Oleghe OLS, Efewongbe Referring Unavailabl e Oleghe OLS, Efewongbe Attending Unavailabl e Oleghe, Efewongbe Primary Care Unavailable Oleghe OLS, Efewongbe Referring Unavailabl e Oleghe OLS, Efewongbe Attending Unavailabl e Erasmo, Howard Chi Primary Care Unavailable Oleghe OLS, Efewongbe Attending Unavailabl e Allergies Allergy Classification Reported Allergen(s) Allergy Type Date of Onset Reaction(s) Facility (2 sources) mold extract; Translations: [MOLD] Drug Allergy [address] [facility] Work Phone: (2 sources) potassium Drug Allergy 1 Rash [facility] Work Phone: [phone] (20 sources) traMADol; Translations: [TRAMADOL] Drug Allergy 7 Nausea Only, GI Upset [facility] Work Phone: [phone] Comment on above: upset stomach (2 sources) RAGWEED drug allergy 1 [facility] Work Phone: [phone] (6 sources) Penicillins; Translations: [PENICILLINS] Propensity to adverse reactions to drug 5 [place], [place] (2 sources) Penicillins Drug Allergy 5 [facility] Work Phone: [phone] (19 sources) environmental [Other] Propensity to adverse reactions 5 [facility] Work Phone: (20 sources) Penicillins Drug Allergy 5 [facility] Work Phone: (20 sources) Penicillins Allergy to substance 2 [facility] (1 source) OTHER; Translations: [OTHER] Propensity to adverse reactions (disorder) 5 [facility] Other [place] [facility] (7 sources) risperiDONE; Translations: [RISPERIDONE] Drug Allergy 4 Unknown [facility] Comment on above: Also becomes severel y confused and has slurred speech and hallucinations. (1 source) Penicillins Drug Allergy 5 Rash [facility] Work Phone: (1 source) Penicillins Drug allergy (disorder) 4 [facility] (1 source) risperiDONE Drug Allergy 4 [facility] Medications Current Medications Medication Drug Class(es) Dates Sig (Normalized) Sig (Original) acetaminophen 500 mg oral tablet (13 sources) Start: 12-25-2023 take 2 tablets by mouth every eight hours Acetaminophen 500 mg Tablet Active 1000 mg PO EVERY 8 HOURS 0 14 December 25, 2023 12:00am Start: 11-20-2023 End: 12-25-2023 take 2 tablets by mouth every eight hours as needed for pain Acetaminophen 325 mg Tablet Discontinued 650 mg PO EVERY 8 HOURS as needed for fever or pain December 22, 2023 12:00am December 25, 2023 3:08pm Start: 05-27-2019 End: 05-27-2019 acetaminophen (TYLENOL) tabl et 650 mg Acetaminophen 50 0 mg cap Take by mouth. 1000 TID for pain Active acetaminophen 325 mg / HYDROcodone bitartrate 5 mg oral tablet (20 sources) Opioid Agonist Start: 04-14-2022 take 1 tablet by mouth every six hours as needed Hydrocodone-Acetaminophen Active 1 TABLET PO EVERY 6 HOURS NEEDED 10 April 14, 2022 Start: 03-04-2016 End: 01-07-2018 Hydrocodone-Acetaminophen 1 TABLET tablet Discontinued 1 - 2 {tbl} PO EVERY 4 HOURS NEEDED as needed for Pain March 04, 2016 12:00am January 07, 2018 12:59pm Start: 03-04-2016 End: 01-07-2018 take 1 tablet by mouth every four hours as needed Hydrocodone-Acetaminophen Discontinued 1 - 2 TABLET PO EVERY 4 HOURS NEEDED March 04, 2016 12:00am January 07, 2018 12:59pm Start: 03-04-2016 End: 01-07-2018 Start: 11-08-2011 LORTAB 5-500 M G TABS As needed HYDROCODONE-ACETAMINOPHEN [id number] Aleta Castellanos RN Start: 11-08-2011 End: 11-09-2011 LORTAB 5-500 MG TABS As need ed HYDROCODONE-ACETAMINOPHEN [id number] Bart Olivarez MD ALPRAZolam 0.25 mg disintegrating oral tablet (1 source) Benzodiazepine Start: 05-27-2019 ALPRAZolam (NIRAVAM) dissolvable tablet 0.25 mg aspirin 81 mg chewable tablet (20 sources) Nonsteroidal Anti-inflammatory Drug Start: 06-29-2023 take 1 tablet by mouth twice daily Aspirin 81 mg Tablet,Chewable Active 81 mg PO TWICE A DAY December 25, 2023 12:00am Start: 09-02-2010 End: 04-21-2024 Aspirin (Adult Low Dose Aspi rin) 81 mg tablet,delayed release (DR/EC) Discontinued 81 mg PO daily December 31, 2017 12:00am January 07, 2018 12:58pm Start: 09-02-2010 take 1 tablet by nasrin th once daily ASPIRIN 81 MG TABS One tablet by mouth daily ASPIRIN [id number] Nurys Nettles Comment on above: Take 81 mg by mouth once daily. autologous serum 20% ophth drops (3 sources) take 1 drop(s) into the eye(s) three times daily autologous serum 20% ophth drops Use 1 Drop in both eyes three times a day. Refrigerate, Discard in 7 days, Keep unopened bottles in Freezer Dose not specified on facility med list Active calcium chloride 0.0014 meq/ml / potassium chloride 0.004 meq/ml / sodium chloride 0.103 meq/ml / sodium lactate 0.028 meq/ml injectable solution (1 source) Start: 05-27-20 lactated ringers infusion 1 ml diphenhydrAMINE hydrochloride 50 mg/ml cartridge (1 source) Histamine-1 Receptor Antagonist Start: 05-27-20 End: 05-27-20 diphenhydrAMINE (BENADRYL) injection 12.5 mg enteric contrast (will be provided with radiology test) (1 source) Start: 02-15-20 End: 02-15-20 take 1 dose by mouth once, then [...] guidelines 1 Each 0 02/14/2022 02/14/2022 Active Comment on above: Take 1 Each by mouth one time only for [address] ABD/PEL WO Routine order Administer, As Directed One Time Only, via Oral, Rectal, both Oral and Rectal, Enteric Tube, Stoma or Indwelling Catheter, Enteric Contrast as designated per enteric contrast guidelines 2 ml fentaNYL 0.05 mg/ml injection (1 source) Opioid Agonist Start: 05-27-20 fentaNYL (SUBLIMAZE) injection 100 mcg Food Supplemt, Lactose-Reduced (Ensure Plus High Protein) 0.08 gram-1.5 kcal/mL Liquid (3 sources) Start: 12-25-19 Food Supplemt, Lactose-Reduced (Ensure Plus High Protein) 0.08 gram-1.5 kcal/mL Liquid Active 120 mL PO TWICE A DAY 0 December 25, 2023 12:00am 1 ml hydrALAZINE hydrochloride 20 mg/ml injection (1 source) Arteriolar Vasodilator Start: 05-27-20 hydrALAZINE (APRESOLINE) injection 5 mg 1 ml HYDROmorphone hydrochloride 1 mg/ml cartridge (3 sources) Opioid Agonist Start: 05-27-20 19 HYDROmorphone (DILAUDID) injection 0.5 mg Start: 05-27-2019 HYDROmorphone (DILAUDID) injection 0.25 mg 4 ml labetalol hydrochloride 5 mg/ml cartridge (1 source) beta-Adrenergic Dorene Start: 05-27-2019 labetalol (NORMODYNE;TRANDATE) injection 5 mg lactose-reduced food (BOOST HIGH PROTEIN ORAL) (3 sources) lactose-reduced food (BOOST HIGH PROTEIN ORAL) Take by mouth. Active 1 ml meperidine hydrochloride 50 mg/ml injection (1 source) Opioid Agonist Start: 05-27-2019 meperidine (DEMEROL) injection 12.5 mg 2 ml midazolam 1 mg/ml injection (1 source) Benzodiazepine Start: 05-27-2019 midazolam (VERSED) injection 2 mg midodrine hydrochloride 5 mg oral tablet (20 sources) alpha-Adrenergic Agonist Start: 09-14-2023 take 2 tablets by mouth three times daily at mealtime Midodrine 5 mg Tablet Active 10 mg PO 3 TIMES DAILY WITH MEALS 0 September 14, 2023 12:00am Start: 06-28-2023 End: 09-14-2023 take 10 mg by mouth three times daily at mealtime Midodrine Active 10 MG PO 3 TIMES DAILY WITH MEALS 0 September 14, 2023 12:00am Start: 05-21-2023 End: 09-14-2023 take 1 tablet by mouth three times daily Midodrine 5 mg tablet Discontinued 5 mg PO THREE TIMES A DAY June 28, 2023 1:00am September 14, 2023 11:51am Comment on above: Take 5 mg by mouth t hree times a day. Multiple Vitamins-Minerals (THERAPEUTIC MULTIVITAMIN-MINERALS) tablet (2 sources) take 1 tablet by mouth once daily Multiple Vitamins-Minerals (THERAPEUTIC MULTIVITAMIN-MINERALS) tablet Take 1 tablet by mouth daily 0 Active Multivitamin preparation (20 sources) Start: 11-20-2018 take 1 tablet by mouth once daily Multivitamin Active 1 TABLET PO DAILY November 20, 2018 12:59pm Start: 11-20-2018 take 1 tablet by nasrin th once daily Multivitamin Active 1 TABLET PO DAILY November 19, 2018 11:00pm Start: 11-20-2018 take 1 tablet by nasrin th once daily Multivitamin Active 1 TABLET PO DAILY November 20, 2018 12:00am Multivitamin tablet (3 sources) Start: 11-20-2018 Multivitamin t ablet Active 1 {tbl} PO DAILY November 20, 2018 12:00am 2 ml ondansetron 2 mg/ml injection (1 source) Serotonin-3 Receptor Antagonist Start: 05-27-2019 End: 05-27-2019 ondansetron (ZOFRAN) injection 4 mg oxyCODONE (1 source) Opioid Agonist Start: 05-27-2019 End: 05-27-2019 oxyCODONE (ROXICODONE) immediate release tablet 5 mg Polyethylene Glycols (2 sources) Polyethylene Gly col 3350 (MIRALAX PO) Take by mouth daily as needed 0 Active 1 ml promethazine hydrochloride 25 mg/ml injection (1 source) Phenothiazine Start: 05-27-2019 End: 05-27-2019 promethazine (PHENERGAN) injection 6.25 mg VITAL TEARS (7 sources) Start: 09-08-2023 VITAL TEARS Ac tive 1 NMA OPHTHALMIC THREE TIMES A DAY September 08, 2023 12:00am Start: 09-08-2023 VITAL TEARS Ac tive 1 DRP OPHTHALMIC THREE TIMES A DAY September 08, 2023 12:00am Start: 09-08-2023 VITAL TEARS Ac tive September 08, 2023 12:00am (6 sources) Start: 10-03-2023 Start: 09-08-2023 Start: 11-20-2018 Start: 12-31-2017 End: 11-20-2018 Start: 12-31-2017 End: 05-27-2018 Start: 12-31-2017 End: 01-07-2018 Completed/Discontinued Medications Medication Drug Class(es) Dates Sig (Normalized) Sig (Original) [id number] actuat albuterol 0.09 mg/actuat metered dose inhaler (20 sources) beta2-Adrenergic Agonist Start: 01-15-2023 End: 09-08-2023 Albuterol Sulfate 90 mcg/actuation HFA aerosol inhaler Discontinued 2 NMA INHALATION Q4H as needed for shortness of breath or wheezing January 15, 2023 12:00am September 08, 2023 1:09pm only uses rarely (1-2 times per year) Start: 01-15-2023 End: 09-08-2023 Albuterol Sulfate Discontinu ed 2 PUFF INHALATION Q4H January 15, 2023 12:00am September 08, 2023 1:09pm only uses rarely (1-2 times per year) Start: 01-15-2023 End: 09-08-2023 Start: 01-15-2023 take 1 puff(s) by in halation every four hours Albuterol Sulfate Active 2 PUFF INHALATION Q4H January 14, 2023 11:00pm ascorbic acid 500 mg oral tablet (20 sources) Start: 11-02-2023 End: 11-20-2023 take 1 tablet by mouth once daily Ascorbic Acid (Vitamin C) 500 mg Tablet Discontinued 500 mg PO DAILY November 02, 2023 12:00am November 20, 2023 8:26pm Start: 10-03-2023 End: 11-02-2023 take 2 tablets by mouth once daily Ascorbic Acid (Vitamin C) 500 mg Tablet Discontinued 1000 mg PO DAILY 0 October 03, 2023 12:00am November 02, 2023 4:41pm Start: 10-03-2023 take 1000 mg by mouth once azucena ly Ascorbic Acid (Vitamin C) Active 1000 MG PO DAILY 0 October 03, 2023 12:00am Start: 09-08-2023 End: 10-03-2023 take 1 tablet by mouth once daily Ascorbic Acid (Vitamin C) (C Complex) 1,000 mg tablet extended release Discontinued 1000 mg PO DAILY September 08, 2023 12:00am October 03, 2023 7:40am Start: 12-31-2017 End: 06-28-2023 take 2 capsules by mouth once daily Ascorbic Acid (Vitamin C) 500 mg capsule Discontinued 1000 mg PO daily December 31, 2017 12:00am June 28, 2023 1:38pm Start: 12-31-2017 End: 06-28-2023 take 1000 mg by mouth once daily Ascorbic Acid (Vitami n C) Discontinued 1000 MG PO daily December 31, 2017 12:00am June 28, 2023 1:38pm Start: 04-18-2010 Ascorbic Acid 500 MG CAPS Take by mouth daily 0 04/18/2010 Active Start: 04-18-2010 End: 04-21-2024 Ascorbic Acid 1,000 mg table t Take 500 mg by mouth once daily. 0 04/18/2010 04/21/2024 Discontinued Start: 04-18-2010 Ascorbic Acid 1,000 mg tablet Take by mouth once daily. 0 04/18/2010 Active Comment on above: With Zahida hips daily Take by mouth once d aily. atorvastatin 40 mg oral tablet (20 sources) HMG-CoA Reductase Inhibitor Start: End: take 1 tablet by mouth at bedtime Atorvastatin 40 mg Tablet Discontinued 40 mg PO AT BEDTIME June 29, 2023 1:00am November 20, 2023 8:26pm Start: 06-17-2019 End: 07-02-2019 take 1 tablet by mouth at bedtime Atorvastatin 20 MG tablet Discontinued 20 mg PO AT BEDTIME June 17, 2019 1:00am July 02, 2019 1:58pm Start: 12-31-2017 End: 05-21-2019 take 1 tablet by mouth once daily Atorvastatin 20 mg tablet Discontinued 20 mg PO daily May 12, 2019 11:38am May 21, 2019 1:48pm Start: 04-16-2015 take 1 tablet by nasrin th once daily ATORVASTATIN CALCIUM 20 MG TABS One tablet by mouth daily ATORVASTATIN CALCIUM [id number] Michelle Hooper NP Comment on above: Take 40 mg by mouth once daily. B COMPLEX-C (4 sources) Start: 10-11-2012 take 1 tablet by mouth once daily VITAMIN B COMPLEX-C CAPS One tablet by mouth daily B COMPLEX-C [id number] Bart Olivarez MD Start: 10-11-2012 End: 04-08-2013 take 1 tablet by mouth once daily VITAMIN B COMPLEX-C CAPS One tablet by mouth daily B COMPLEX-C [id number] Julissa Da Silva PA-C calcium carbonate / vitamin D (4 sources) Start: 09-02-2010 End: 04-08-2013 take 1 tablet by mouth once daily CALCIUM CARBONATE-VITAMIN D 600-125 MG-UNIT TABS One tablet by mouth daily CALCIUM CARBONATE-VITAMIN D [id number] Julissa Da Silva PA-C Start: 09-02-2010 take 1 tablet by nasrin th once daily CALCIUM CARBONATE-VITAMIN D 600-125 MG-UNIT TABS One tablet by mouth daily CALCIUM CARBONATE-VITAMIN D [id number] Nurys Nettles carbidopa 25 mg / levodopa 100 mg oral tablet (20 sources) Aromatic Amino Acid Decarboxylation Inhibitor Start: 12-31-2017 End: 04-21-2024 Carbidopa-Levodopa 25-100 mg tablet Discontinued 1.5 {tbl} PO THREE TIMES A DAY November 23, 2021 1:21pm January 05, 2023 4:14pm Start: 12-31-2017 End: 01-05-2023 take 1.5 tablets by mouth three times daily Carbidopa-Levodopa Discontinued 1.5 TABLET PO THREE TIMES A DAY November 23, 2021 12:21pm January 05, 2023 3:14pm Start: 12-31-2017 End: 01-05-2023 Start: 04-08-2013 take 1 tablet by nasrin th three times daily CARBIDOPA-LEVODOPA 25-100 MG TABS One tablet by mouth three times daily CARBIDOPA-LEVODOPA [id number] Julissa Da Silva PA-C Comment on above: 1.5 tablet 3 times a day Take 1 tablet by nasrin th three times daily. 12 tablet 3 times a day 2 tablet 3 times a d ay at 8am, 1pm and 6pm carvedilol 3.125 mg oral tablet (20 sources) alpha-Adrenergic Dorene, beta-Adrenergic Dorene Start: 01-17-20 18 End: 05-21-20 19 take 1 tablet by mouth twice daily Carvedilol 3.125 mg tablet Discontinued 3.125 mg PO TWICE A DAY 180 April 07, 2019 2:51pm May 21, 2019 1:47pm cholecalciferol 0.025 mg oral tablet (20 sources) Vitamin D Start: 01-01-20 18 End: 11-21-19 19 take 1 tablet by mouth once daily Cholecalciferol (Vitamin D3) 1,000 unit tablet Discontinued 1000 U PO daily December 31, 2017 12:00am November 20, 2018 12:58pm GLUCOSAMINE-CHONDROITIN CAPS (4 sources) Start: 09-03-19 11 End: 04-08-20 13 take 1 tablet by mouth once daily GLUCOSAMINE-CHONDROITIN CAPS One tablet by mouth daily GLUCOSAMINE-CHONDROITIN CAPS [id number] Julissa Da Silva PA-C Start: 09-02-2010 take 1 tablet by nasrin once daily GLUCOSAMINE-CHONDROITIN CAPS One tablet by mouth daily GLUCOSAMINE-CHONDROITIN CAPS [id number] Nurys Nettles CINNAMON CAPS (4 sources) Non-Standardized Food Allergenic Extract Start: 11-23-2014 End: 06-25-2015 take 2 tablets by mouth once daily CINNAMON CAPS Two tablets by mouth daily CINNAMON CAPS [id number] Julissa Da Silva PA-C Start: 11-23-2014 take 2 tablets by mo [facility] once daily CINNAMON CAPS Two tablets by mouth daily CINNAMON CAPS [id number] Bart Olivarez MD 50 ml clindamycin 12 mg/ml injection (1 source) Lincosamide Antibacterial Start: 05-27-2019 End: 05-27-2019 clindamycin (CLEOCIN) 600 mg in dextrose 5 % 50 mL IVPB ubidecarenone 100 mg oral capsule (20 sources) Start: 12-31-2017 End: 01-07-2018 Coenzyme Q10 (Co Q-10) 100 mg capsule Discontinued 100 mg PO daily December 31, 2017 12:00am January 07, 2018 12:58pm Start: 11-09-2011 take 1 tablet by nasrin th once daily CO Q-10 100 MG CAPS One tablet by mouth daily COENZYME Q10 [id number] Bart Olivarez MD dexamethasone sod phos-bupiv (TAP) 0.01-0.375 % syringe (1 source) Start: 05-27-2019 End: 05-27-2019 dexamethasone sod phos-bupiv (TAP) 0.01-0.375 % syringe dexamethasone sod phos-bupiv (TAP) syringe 30 mL (1 source) Start: 05-27-2019 End: 05-27-2019 dexamethasone sod phos-bupiv (TAP) syringe 30 mL 24 hr dilTIAZem hydrochloride 120 mg extended release oral capsule (20 sources) Calcium Channel Dorene Start: 06-21-2017 End: 01-16-2018 take 1 capsule by mouth once daily Diltiazem Hcl 120 mg capsule,extended release 24hr Discontinued 120 mg PO daily June 21, 2017 1:00am January 16, 2018 3:28pm Start: 05-01-2013 take 1 tablet by nasrin th once daily CARDIZEM CD 120 MG [id number] One tablet by mouth daily DILTIAZEM HCL COATED BEADS [id number] Bart Olivarez MD docusate sodium 50 mg / sennosides, skilled nursing 8.6 mg oral capsule (6 sources) Start: 11-02-2023 End: 11-20-2023 Sennosides-Docusate Sodium ( Senna Plus) 8.6-50 mg capsule Discontinued 1 NMA PO DAILY as needed for CONSTIPATION November 02, 2023 12:00am November 20, 2023 8:27pm End: 04-21-2024 take 1 tablet by mouth once daily as needed senna-docusate (SENNA PLUS) 8.6-50 mg per tablet Take 1 tablet by mouth once daily. PRN 04/21/2024 Discontinued 1 ml EPINEPHrine 1 mg/ml injection (1 source) alpha-Adrenergic Agonist, beta-Adrenergic Agonist, Catecholamine Start: 05-27-2019 End: 05-27-2019 EPINEPHrine PF 1 MG/ML injection 0.15 mg Start: 05-27-2019 End: 05-27-2019 EPINEPHrine PF 1 MG/ML injec tion 0.15 mg estradiol 0.1 mg/ml vaginal cream (20 sources) Estrogen Start: 12-31-2017 End: 05-27-2018 Estradiol (Estrace) 0.01 % (0.1 mg/gram) cream Discontinued 1 g VAGINAL EVERY WEEK December 31, 2017 12:00am May 27, 2018 2:53pm Start: 12-31-2017 End: 05-27-2018 Start: 09-02-2010 ESTRACE 0.1 MG /GM CREA Take as directed ESTRADIOL [id number] Bart Olivarez MD Start: 09-02-2010 VAGIFEM TABS 2 5mcg 1 per vagina Q HS ESTRADIOL TABS [id number] Nurys Nettles ezetimibe 10 mg oral tablet (6 sources) Dietary Cholesterol Absorption Inhibitor Start: 09-02-2010 End: 11-23-2014 take 1 tablet by mouth once daily ZETIA 10 MG TABS One tablet by mouth daily EZETIMIBE [id number] Bart Olivarez MD famotidine 40 mg oral tablet (13 sources) Histamine-2 Receptor Antagonist Start: 08-10-2023 End: 04-21-2024 take 1 tablet by mouth once daily Famotidine 40 mg tablet Discontinued 40 mg PO DAILY September 08, 2023 12:00am November 20, 2023 8:26pm Start: 05-27-2019 End: 05-27-2019 famotidine (PEPCID) tablet 2 0 mg Comment on above: Take 1 tablet by nasrin once daily. fish oil (2 sources) Start: 09-02-2010 take 1 tablet by mouth once daily FISH OIL CAPS One tablet by mouth daily OMEGA-3 FATTY ACIDS CAPS [id number] Nurys Nettles furosemide 20 mg oral tablet (20 sources) Loop Diuretic Start: 01-07-2018 End: 02-19-2018 take 1 tablet by mouth once daily Furosemide 20 mg tablet Discontinued 20 mg PO daily 90 January 16, 2018 3:29pm February 19, 2018 6:02pm Start: 01-07-2018 End: 04-22-2019 take 1 tablet by mouth every other day as needed for edema Furosemide 20 mg tablet Discontinued 20 mg PO .QOD as needed for edema May 27, 2018 3:36pm April 22, 2019 2:28pm [id number] CAPS (4 sources) Start: 04-08-2013 take 1 tablet by mouth once daily DEPLIN 15 CAPS One tablet by mouth daily [id number] CAPS [id number] Bart Olivarez MD Start: 04-08-2013 DEPLIN 15 CAPS [id number] CAPS [id number] Julissa Da Silva PA-C levomefolate (20 sources) Start: 12-31-2017 End: 01-07-2018 take 15 mg by mouth once daily Levomefolate Calcium Discontinued 15 MG PO daily December 31, 2017 3:54pm January 07, 2018 12:59pm Start: 12-31-2017 End: 01-07-2018 take 1 tablet by mouth once daily Levomefolate Calcium 15 mg tablet Discontinued 15 mg PO daily December 31, 2017 12:00am January 07, 2018 12:59pm Start: 12-31-2017 End: 01-07-2018 take 15 mg by mouth once daily Levomefolate Calcium Di scontinued 15 MG PO daily December 30, 2017 11:00pm January 07, 2018 11:59am Start: 12-31-2017 End: 01-07-2018 take 15 mg by mouth once daily Levomefolate Calcium Di scontinued 15 MG PO daily December 31, 2017 12:00am January 07, 2018 12:59pm 10 ml lidocaine hydrochloride 10 mg/ml injection (3 sources) Antiarrhythmic, Amide Local Anesthetic Start: 05-27-2019 End: 05-27-2019 lidocaine PF 1 % injection 2 mL Start: 05-27-2019 End: 05-27-2019 lidocaine PF 1 % injection Start: 05-27-2019 End: 05-27-2019 lidocaine PF 1 % injection 1 mL meloxicam 15 mg oral tablet (4 sources) Nonsteroidal Anti-inflammatory Drug Start: 09-02-2010 End: 01-08-2017 take 1 tablet by mouth once daily as needed MOBIC 15 MG TABS One tablet by mouth daily As needed MELOXICAM [id number] Nurys Nettles 24 hr metoprolol succinate 25 mg extended release oral tablet (20 sources) beta-Adrenergic Dorene Start: 10-03-2023 End: 11-20-2023 take 1 tablet by mouth once daily Metoprolol Succinate 25 mg Tablet Extended Release 24 Hr Discontinued 25 mg PO DAILY October 03, 2023 12:00am November 20, 2023 8:27pm Start: 09-20-2022 End: 02-06-2023 take 0.5 tablet by mouth twice daily Metoprolol Tartrate 25 mg tablet Discontinued 12.5 mg PO Q12H January 15, 2023 12:00am February 06, 2023 2:21pm TAKE 1/2 TABLET BY MOUTH TWICE A DAY Start: 05-21-2019 End: 09-20-2022 Metoprolol Tartrate 25 mg ta blet Discontinued 12.5 mg PO TWICE A DAY September 19, 2021 12:43pm September 20, 2022 8:50am Start: 05-21-2019 End: 01-15-2023 take 0.5 tablet by mouth twice daily Metoprolol Tartrate Discontinued 0 .ROUTE .COMPLEX September 20, 2022 7:50am January 15, 2023 11:17am TAKE 1/2 TABLET BY MOUTH TWICE A DAY Start: 05-21-2019 End: 02-06-2023 take 0.5 tablet by mouth twice daily Metoprolol Tartrate Discontinued 12.5 MG PO Q12H January 14, 2023 11:00pm February 06, 2023 1:21pm TAKE 1/2 TABLET BY MOUTH TWICE A DAY take 1 tablet by nasrin th twice daily metoprolol tartrate (LOPRESSOR) 12.5 mg TABS Take 12.5 mg by mouth 2 times daily 0 Active metoprolol tartrate, short acting, (LOPRESSOR) 12.5 mg tab (20 sources) End: 04-21-2024 metoprolol tartrate, short acting, (LOPRESSOR) 12.5 mg tab Take 25 mg by mouth two times a day. 04/21/2024 Discontinued metoprolol tartr ate, short acting, (LOPRESSOR) 12.5 mg tab Take 25 mg by mouth two times a day. 0 Active take 1 tablet by mouth twice azucena ly metoprolol tartrate, short acting, (LOPRESSOR) 12.5 mg tab Take 12.5 mg by mouth twice daily. 0 Active Comment on above: Take 12.5 mg by mout h twice daily. mirtazapine 15 mg oral tablet (20 sources) Start: 09-21-2020 End: 09-19-2022 take 0.5 tablet by mouth once daily at bedtime, then take 0.5 tablet by mouth at bedtime mirtazapine (REMERON) 15 mg tablet Take 0.5 tablets by mouth daily at bedtime. Take 1/2 tablet by mouth at bedtime. 45 tablet 3 09/19/2021 07/05/2022 Discontinued Start: 06-17-2019 take 7.5 mg by mouth at bedtim e Mirtazapine Active 7.5 MG PO AT BEDTIME June 17, 2019 12:00am Start: 01-07-2018 End: 05-27-2018 take 1 tablet by mouth once daily Mirtazapine 15 mg tablet Discontinued 15 mg PO daily January 07, 2018 12:00am May 27, 2018 2:54pm Start: 01-07-2018 End: 05-27-2018 Comment on above: Take 0.5 tablets by mouth daily at bedtime. Take 1/2 tablet by mouth at bedtime. montelukast 10 mg oral tablet (4 sources) Leukotriene Receptor Antagonist Start: 1 End: 3 take 1 tablet by mouth once daily as needed SINGULAIR 10 MG TABS One tablet by mouth daily As needed MONTELUKAST SODIUM [id number] Julissa Da Silva PA-C MULTIPLE VITAMIN (4 sources) Start: 3 take 1 tablet by mouth once daily MULTIVITAMINS TABS One tablet by mouth daily MULTIPLE VITAMIN [id number] Bart Olivarez MD Start: 10-11-2012 End: 04-08-2013 take 1 tablet by mouth once daily MULTIVITAMINS TABS One tablet by mouth daily MULTIPLE VITAMIN [id number] Julissa Da Silva PA-C MULTIVITAMIN ORAL (20 sources) End: 04-21-2024 MULTIVITAMIN ORAL Take by [facility] once daily. 04/21/2024 Discontinued MULTIVITAMIN ORA L Take by mouth once daily. 0 Active Comment on above: Take by mouth once d aily. olopatadine 1 mg/ml ophthalmic solution (4 sources) Histamine-1 Receptor Inhibitor Start: 1 End: 2 PATANOL 0.1 % SOLN As needed OLOPATADINE HCL [id number] Bart Olivarez MD Grandy-3 Fatty Acids (Fish Oil Concentrate) 1,000 mg capsule (20 sources) Start: 8 End: 8 take 1 capsule by mouth once daily Grandy-3 Fatty Acids (Fish Oil Concentrate) 1,000 mg capsule Discontinued 1000 MG PO daily December 31, 2017 3:53pm May 27, 2018 2:53pm Start: 12-31-2017 End: 05-27-2018 take 1 capsule by mouth once daily Grandy-3 Fatty Acids (Fish Oil Concentrate) 1,000 mg capsule Discontinued 1000 mg PO daily December 31, 2017 12:00am May 27, 2018 2:53pm Start: 12-31-2017 End: 05-27-2018 take 1 capsule by mouth once daily Grandy-3 Fatty Acids (Fish Oil Concentrate) 1,000 mg capsule Discontinued 1000 MG PO daily December 30, 2017 11:00pm May 27, 2018 1:53pm Start: 12-31-2017 End: 05-27-2018 take 1 capsule by mouth once daily Grandy-3 Fatty Acids (Fish Oil Concentrate) 1,000 mg capsule Discontinued 1000 MG PO daily December 31, 2017 12:00am May 27, 2018 2:53pm potassium chloride 20 meq extended release oral tablet (20 sources) Start: 05-27-2018 End: 04-22-2019 take 10 mEq by mouth every other day as needed Potassium Chloride 20 mEq tablet extended release Discontinued 10 meq PO .QOD as needed May 27, 2018 3:36pm April 22, 2019 2:28pm Start: 02-19-2018 End: 05-27-2018 take 1 tablet by mouth every other day Potassium Chloride 20 mEq tablet extended release Discontinued 20 meq PO .QOD February 19, 2018 6:02pm May 27, 2018 2:54pm Start: 01-07-2018 End: 02-19-2018 take 1 tablet by mouth once daily Potassium Chloride 20 mEq tablet extended release Discontinued 20 meq PO daily 90 January 23, 2018 9:18am February 19, 2018 6:02pm Start: 01-07-2018 End: 04-22-2019 take 10 mEq by mouth every other day Potassium Chloride Discontinued 10 MEQ PO .QOD May 27, 2018 2:36pm April 22, 2019 1:28pm prednisoLONE 10 mg/ml ophthalmic solution (4 sources) Corticosteroid Start: 09-02-2010 End: 11-09-2011 PREDNISOLONE SODIUM PHOSPHATE 1 % SOLN PRN PREDNISOLONE SODIUM PHOSPHATE [id number] Bart Olivarez MD VIT-FE FUMARATE-FA TABS (2 sources) Start: 09-02-2010 take 1 tablet by mouth once daily TABS Multi 0.4mg One tablet by mouth daily VIT-FE FUMARATE-FA TABS [id number] Nurys Nettles psyllium 3400 mg powder for oral suspension (20 sources) Start: 11-23-2021 End: 06-28-2023 Psyllium Husk (Metamucil) 3.4 gram/5.4 gram powder Discontinued 1 tsp PO DAILY as needed for Constipation November 23, 2021 12:00am June 28, 2023 2:01pm mix into at least 4 oz water or juice before administering Start: 11-23-2021 End: 06-28-2023 Psyllium Husk (Metamucil) 3. 4 gram/5.4 gram powder Discontinued 1 tsp PO DAILY November 23, 2021 12:00am June 28, 2023 2:01pm mix into at least 4 oz water or juice before administering Start: 11-23-2021 End: 06-28-2023 psyllium husk (METAMUCIL ORA L) (20 sources) End: 04-21-2024 psyllium husk (METAMUCIL ORA L) Take 1 teaspoonful by mouth once daily as needed. 04/21/2024 Discontinued psyllium husk (M ETAMUCIL ORAL) Take 1 teaspoonful by mouth once daily as needed. 0 Active Comment on above: Take 1 teaspoonful b y mouth once daily as needed. risperiDONE 0.5 mg oral tablet (10 sources) Atypical Antipsychotic Start: 11-07-19 End: 11-20-19 take 1 tablet by mouth at bedtime Risperidone 0.5 mg Tablet Discontinued 0.5 mg PO AT BEDTIME 0 November 07, 2023 12:00am November 20, 2023 8:27pm Start: 09-14-2023 End: 10-03-2023 take 1 tablet by mouth at bedtime Risperidone 0.25 mg Tablet Discontinued 0.25 mg PO AT BEDTIME 0 September 14, 2023 12:00am October 03, 2023 7:41am Start: 09-14-2023 End: 10-03-2023 Vital Tears (5 sources) Start: 10-03-2023 End: 11-02-2023 Vital Tears Discontinued 1 N MA EACH EYE THREE TIMES A DAY 0 October 03, 2023 12:00am November 02, 2023 4:40pm Start: 10-03-2023 Vital Tears Ac tive 1 drp EACH EYE THREE TIMES A DAY 0 October 03, 2023 12:00am vitamin b12 1 mg sublingual tablet (14 sources) Vitamin B12 Start: 09-08-2023 End: 12-22-2023 take 1 tablet under the tongue once daily Cyanocobalamin (Vitamin B-12) 1,000 mcg tablet, sublingual Discontinued 1000 ug SL DAILY September 08, 2023 12:00am December 22, 2023 7:07pm Start: 01-08-2017 take 1 tablet by nasrin once daily B-12 1000 MCG CAPS One tablet by mouth daily CYANOCOBALAMIN [id number] Bart Olivarez MD End: 04-21-2024 take 1 tablet by mouth once daily cyanocobalamin (VITAMIN B-12) 1,000 mcg tab Take 1,000 mcg by mouth once daily. 04/21/2024 Discontinued Comment on above: Take 1,000 mcg by mo ut once daily. Vitamin B Complex (B Complex-Vitamin B12) tablet (20 sources) Start: 12-31-2017 End: 11-20-2018 take 1 tablet by mouth once daily Vitamin B Complex (B Complex-Vitamin B12) tablet Discontinued 1 TABLET PO daily December 31, 2017 3:51pm November 20, 2018 12:58pm Start: 12-31-2017 End: 11-20-2018 Vitamin B Complex (B Complex -Vitamin B12) tablet Discontinued 1 {tbl} PO daily December 31, 2017 12:00am November 20, 2018 12:58pm Start: 12-31-2017 End: 11-20-2018 take 1 tablet by mouth once daily Vitamin B Complex (B Complex-Vitamin B12) tablet Discontinued 1 TABLET PO daily December 30, 2017 11:00pm November 20, 2018 11:58am Start: 12-31-2017 End: 11-20-2018 take 1 tablet by mouth once daily Vitamin B Complex (B Complex-Vitamin B12) tablet Discontinued 1 TABLET PO daily December 31, 2017 12:00am November 20, 2018 12:58pm vitamin d 1000 unt oral tablet (6 sources) Start: 11-24-2013 take 2 tablets by mouth once daily VITAMIN D 1000 UNIT TABS Two tablets by mouth daily CHOLECALCIFEROL [id number] Bart Olivarez MD Start: 09-02-2010 End: 11-09-2011 take 1 tablet by mouth once daily VITAMIN D 1000 UNIT TABS One tablet by mouth daily CHOLECALCIFEROL [id number] Bart Olivarez MD WHEAT DEXTRIN (3 sources) Start: 11-23-2014 BENEFIBER POWD 1 tsp daily WHEAT DEXTRIN [id number] Bart Olivarez MD End: 2019 take 4 g by mouth three times daily at mealtime Wheat Dextrin (BENEFIBER) POWD Take 4 g by mouth 3 times daily (with meals) 0 2019 Discontinued (Therapy completed) Problems Active Problems Problem Classification Problem Date Documented Date Episodic/Chronic Abdominal hernia (1 source) Disorder of abdominal wall; Translations: [Ventral hernia without obstruction or gangrene] Episodic Acute bronchitis (20 sources) Acute bronchitis; Translations: [Acute bronchitis, unspecified] Episodic Cancer; other and unspecified primary (20 sources) History of atrial myxoma; Translations: [Personal history of other benign neoplasm] 05-21-2019 Episodic Comment on above: excision of Lt myxom a with pericardial patch of atrial septum 03/19/01 Cancer; other and unspecified primary (7 sources) Personal history of other benign neoplasm; Translations: [Personal history of other diseases of circulatory system] Episodic Cardiac dysrhythmias (20 sources) Ventricular premature beats; Translations: [Premature atrial contraction] Onset: 11-24-2013 11-24-2013 Chronic Chronic kidney disease (2 sources) Chronic kidney disease; Translations: [Chronic kidney disease, stage 3 unspecified] Onset: 11-14-2024 Deficiency and other anemia (7 sources) Anemia; Translations: [Anemia, unspecified] 09-10-2023 Episodic Delirium, dementia, and amnestic and other cognitive disorders (1 source) Dementia in other diseases classified elsewhere without behavioral disturbance; Translations: [Dementia in other diseases classified elsewhere, unspecified severity, without behavioral disturbance, psychotic disturbance, mood disturbance, and anxiety] Onset: 12-27-2023 Chronic Diseases of white blood cells (20 sources) Leukocytosis; Translations: [Elevated white blood cell count, unspecified] Onset: 07-21-2011 07-21-2011 Chronic Disorders of lipid metabolism (20 sources) Hyperlipidemia; Translations: [Hyperlipidemia, unspecified] Onset: 09-02-2010 09-02-2010 Chronic Diverticulosis and diverticulitis (20 sources) Diverticulosis of colon; Translations: [Diverticulosis of large intestine without perforation or abscess without bleeding] Onset: 12-05-2006 04-18-2010 Chronic E Codes: Adverse effects of medical drugs (3 sources) Adverse reaction to drug; Translations: [Adverse effect of unspecified drugs, medicaments and biological substances, initial encounter] 11-30-2023 Episodic Comment on above: Risperdal. Syncope, slurred speech, hallucinations, severe confusion Esophageal disorders (9 sources) Gastroesophageal reflux disease; Translations: [Gastro-esophageal reflux disease without esophagitis] 09-14-2023 Chronic Essential hypertension (20 sources) Essential hypertension; Translations: [Essential (primary) hypertension] Onset: 12-21-2023 Chronic Fluid and electrolyte disorders (20 sources) Dehydration; Translations: [Dehydration] 2022 Episodic Fracture of upper limb (8 sources) Closed fracture of humerus; Translations: [Unspecified fracture of shaft of humerus, unspecified arm, initial encounter for closed fracture] Onset: 11-23-2023 11-09-2023 Episodic Comment on above: Proximal right humer us due to a fall - non-surgical Genitourinary symptoms and ill-defined conditions (3 sources) History of chronic renal impairment; Translations: [Personal history of other diseases of urinary system] 01-02-2024 Episodic Heart valve disorders (20 sources) Tricuspid incompetence, non-rheumatic ; Translations: [Tricuspid valve regurgitation] Onset: 09-02-2010 06-16-2016 Chronic Immunizations and screening for infectious disease (20 sources) Contact with and (suspected) exposure to other viral communicable diseases; Translations: [Contact with or suspected exposure to other viral communicable disease] Episodic Non-Hodgkin`s lymphoma (1 source) Non-Hodgkin lymphoma, unspecified, unspecified site; Translations: [Non-Hodgkin lymphoma, unspecified, unspecified site] Onset: 11-23-2023 Chronic Nutritional deficiencies (6 sources) Ascorbic acid deficiency; Translations: [Ascorbic acid deficiency] 11-07-2023 Episodic Open wounds of head; neck; and trunk (20 sources) Laceration of eyelid; Translations: [Laceration without foreign body of unspecified eyelid and periocular area, initial encounter] 06-18-2019 Episodic Other and unspecified benign neoplasm (20 sources) Atrial myxoma ; Translations: [Benign neoplasm of heart] 12-02-2021 Episodic Other circulatory disease (20 sources) Raynaud's disease; Translations: [Raynaud's syndrome without gangrene] Onset: 09-14-2009 09-15-2011 Chronic Other circulatory disease (6 sources) Orthostatic hypotension; Translations: [Orthostatic hypotension] 09-14-2023 Episodic Other circulatory disease (3 sources) Orthostatic hypotension; Translations: [Orthostatic hypotension] 10-04-2023 Episodic Other circulatory disease (3 sources) History of transient ischemic attack; Translations: [Personal history of transient ischemic attack (TIA), and cerebral infarction without residual deficits] 01-02-2024 Episodic Other congenital anomalies (1 source) Other congenital malformations of eyelid; 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] Onset: 06-20-2024 Chronic Other congenital anomalies (1 source) Congenital malformation of orbit; 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] Onset: 06-20-2024 Chronic Other congenital anomalies (1 source) Other congenital malformations of lacrimal apparatus; 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] Onset: 06-20-2024 Chronic Other connective tissue disease (20 sources) Triggering of digit; Translations: [Trigger finger, unspecified finger] 12-02-2021 Episodic Other hereditary and degenerative nervous system conditions (3 sources) 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; Translations: [Multi-system degeneration of the autonomic nervous system] 01-02-2024 Chronic Other hereditary and degenerative nervous system conditions (1 source) Sympathotonic orthostatic hypotension; Translations: [Multi-system degeneration of the autonomic nervous system] 10-20-2024 Chronic Other hereditary and degenerative nervous system conditions (2 sources) Multi-system degeneration of the autonomic nervous system; 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)] Onset: 12-27-2023 Chronic Other injuries and conditions due to external causes (20 sources) Local infection of wound; Translations: [Other injury of unspecified body region, initial encounter] 06-07-2022 Episodic Other injuries and conditions due to external causes (20 sources) Open wound with complication; Translations: [Other injury of unspecified body region, initial encounter] 06-07-2022 Episodic Other injuries and conditions due to external causes (20 sources) Other injury of unspecified body region, initial encounter; Translations: [Posttraumatic wound infection not elsewhere classified] Episodic Other injuries and conditions due to external causes (3 sources) Closed injury of head; Translations: [Unspecified injury of head, initial encounter] 11-30-2023 Episodic Other injuries and conditions due to external causes (3 sources) Open wound; Translations: [Other injury of unspecified body region, initial encounter] 06-07-2022 Episodic Other injuries and conditions due to external causes (3 sources) Abrasion and/or friction burn of multiple sites; Translations: [Unspecified multiple injuries, initial encounter] 11-03-2023 Episodic Other injuries and conditions due to external causes (3 sources) Injury of head; Translations: [Unspecified injury of head, initial encounter] 02-06-2024 Episodic Other nervous system disorders (6 sources) Disorder of brain; Translations: [Encephalopathy, unspecified] 09-14-2023 Chronic Other nervous system disorders (3 sources) Encephalopathy, unspecified; Translations: [Encephalopathy, unspecified] 10-04-2023 Chronic Other nervous system disorders (3 sources) Abnormal gait; Translations: [Unspecified abnormalities of gait and mobility] Episodic Other nervous system disorders (1 source) Incoordination; Translations: [Other lack of coordination] Episodic Other nervous system disorders (20 sources) Dysarthria; Translations: [Dysarthria and anarthria] 01-15-2023 Episodic Other nervous system disorders (7 sources) Dysarthria and anarthria; Translations: [Dysarthria] 01-16-2023 Episodic Other nervous system disorders (3 sources) H/O: brain disorder; Translations: [Personal history of other diseases of the nervous system and sense organs] 01-02-2024 Episodic Other nervous system disorders (3 sources) Tremor; Translations: [Tremor, unspecified] 05-22-2024 Episodic Other screening for suspected conditions (not mental disorders or infectious disease) (2 sources) Patient encounter status; Translations: [Encounter for screening mammogram for malignant neoplasm of breast] Episodic Other upper respiratory infections (20 sources) Acute sinusitis; Translations: [Acute sinusitis, unspecified] Episodic Parkinson`s disease (20 sources) Parkinson's disease; Translations: [Parkinson's disease] Onset: 12-15-2009 Chronic Parkinson`s disease (2 sources) Parkinson`s disease; Translations: [Parkinson's disease 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)] Onset: 09-15-2011 Residual codes; unclassified (2 sources) Insomnia; Translations: [...] [RBD (REM behavioral disorder)] Onset: 07-18-2022 Chronic Residual codes; unclassified (20 sources) Insomnia; Translations: [Insomnia, unspecified] 12-02-2021 Episodic Superficial injury; contusion (20 sources) Contusion of knee; Translations: [Contusion of unspecified knee, initial encounter] 06-18-2019 Episodic Syncope (20 sources) Syncope and collapse; Translations: [Near syncope] Onset: 09-02-2010 09-02-2010 Episodic Transient cerebral ischemia (20 sources) Transient cerebral ischemia; Translations: [Transient cerebral ischemic attack, unspecified] 06-28-2023 Chronic Unclassified (3 sources) Dementia due to Parkinson's disease; 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] 01-02-2024 Chronic Unclassified (2 sources) Long-term drug therapy; Translations: [Other long-term (current) drug therapy] Onset: 09-02-2010 09-02-2010 Unclassified (2 sources) Parkinsonism, unspecified; Translations: [Parkinsonism, unspecified] Onset: 12-21-2023 Past or Other Problems Problem Classification Problem Date Documented Date Episodic/Chronic Cardiac dysrhythmias (2 sources) Palpitations; Translations: [Palpitations] Onset: 1 09-02-2010 Episodic Deficiency and other anemia (2 sources) Anemia, unspecified; Translations: [Anemia, unspecified] Onset: 4 09-14-2023 Episodic E Codes: Fall (20 sources) Fall; Translations: [Unspecified fall, initial encounter] Onset: 4 06-18-2019 Episodic Fracture of neck of femur (hip) (8 sources) Fracture of unspecified part of neck of right femur, initial encounter for closed fracture; Translations: [Displaced fracture of neck of right femur] Onset: 4 01-02-2024 Episodic Heart valve disorders (2 sources) Heart murmur; Translations: [Cardiac murmur, unspecified] Onset: 1 09-02-2010 Episodic Hemorrhoids (20 sources) Internal hemorrhoids; Translations: [Other hemorrhoids] Onset: 7 04-18-2010 Episodic Malaise and fatigue (20 sources) Fatigue; Translations: [Asthenia] Onset: 7 06-26-2016 Episodic Neoplasms of unspecified nature or uncertain behavior (20 sources) Lymphoproliferative disorder; 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, hematopoietic and related tissue] Onset: 2 Episodic Non-Hodgkin`s lymphoma (20 sources) History of malignant lymphoma; Translations: [Personal history of other malignant neoplasms of lymphoid, hematopoietic and related tissues] Onset: 4 12-15-2013 Episodic Open wounds of extremities (20 sources) Laceration of lower limb; Translations: [Laceration without foreign body, unspecified lower leg, initial encounter] Onset: 4 Episodic Other and unspecified benign neoplasm (2 sources) Benign neoplasm of mediastinum; Translations: [Benign neoplasm of mediastinum] Onset: 1 09-02-2010 Episodic Other and unspecified benign neoplasm (20 sources) Benign neoplasm of colon; Translations: [Benign neoplasm of colon, unspecified] Onset: 7 04-18-2010 Episodic Other connective tissue disease (2 sources) Cramp in lower limb; Translations: [Cramp and spasm] Onset: 7 06-26-2016 Episodic Other connective tissue disease (1 source) Unspecified symptoms and signs involving the nervous system; Translations: [Unspecified symptoms and signs involving the nervous system] Onset: 4 Episodic Other connective tissue disease (1 source) Pain in right hand; Translations: [Pain in right hand] Onset: 4 Episodic Other nervous system disorders (1 source) Unspecified abnormalities of gait and mobility; Translations: [Abnormality of gait] Onset: 3 Episodic Other nervous system disorders (1 source) Personal history of other diseases of the nervous system and sense organs; Translations: [Personal history of other diseases of the nervous system and sense organs] Onset: 4 Episodic Other nutritional; endocrine; and metabolic disorders (20 sources) Abnormal weight loss; Translations: [Abnormal weight loss] Onset: 8 12-31-2017 Episodic Other nutritional; endocrine; and metabolic disorders (1 source) Abnormal weight loss; Translations: [Abnormal weight loss] Onset: 4 Episodic Results Test Name Value Interpretation Reference Range Facility Absolute lymphocyte countOrd ered By: Odalis Saravia on 10-23-2024 Lymphocytes Auto (Unsp spec) [#/Vol] 6.66 10*3/uL High 0.83-4.51 [facility] Absolute neutrophil countOrd ered By: Odalis Saravia on 10-23-2024 Neutrophils (Bld) [#/Vol] 3.5 10*3/uL 2.0-7.7 [facility] Anion gap in Serum or Plasma Ordered By: Odalis Saravia on 10-23-2024 Anion gap [Moles/Vol] 10 mmol/L 5-15 [facility] Automated lymphocyte count a s percentage of total leukocytesOrdered By: Odalis Saravia on 10-23-2024 Lymphocytes/100 WBC Auto (Unsp spec) 46.7 % High 19-41 [facility] BUN/creatinine ratioOrdered By: Odalis Saravia on 10-23-2024 Urea nitrogen/Creatinine [Mass ratio] 33.7 mg/mg High 10-20 [facility] Basophil percentageOrdered B y: Odalis Saravia on 10-23-2024 Basophils/100 WBC (Bld) 3.1 % High 0-1 [facility] Bilirubin directOrdered By: Odalis Saravia on 10-23-2024 Bilirubin.direct [Mass/Vol] 0.14 mg/dL 0.00-0.30 [facility] Bilirubin, totalOrdered By: Odalis Saravia on 10-23-2024 Bilirubin [Mass/Vol] 0.35 mg/dL 0.00-1.30 [facility] Calculated very low density lipoprotein (VLDL) cholesterol measurementOrdered By: Odalis Saravia on 10-23-2024 Calculated very low density lipoprotein (VLDL) cholesterol measurement 25 mg/dL 5-40 [facility] Carbon dioxide, total [Moles /volume] in Central venous bloodOrdered By: Odalis Saravia on 10-23-2024 CO2 [Moles/Vol] 24.0 mmol/L 21.0-32.0 [facility] Chloride assayOrdered By: Ila Saravia on 10-23-2024 Chloride [Moles/Vol] 103 mmol/L 98-108 [facility] Eosinophil percentageOrdered By: Odalis Saravia on 10-23-2024 Eosinophils/100 WBC (Bld) 14.9 % High 0-5 [facility] Erythrocyte distribution wid th ratioOrdered By: Odalis Saravia on 10-23-2024 Erythrocyte distribution width (RBC) [Ratio] 13.1 % 11.6-14.6 [facility] Erythrocyte distribution wid th standard deviationOrdered By: Odalis Saravia on 10-23-2024 Erythrocyte distribution width (RBC) [Ratio] 47.2 fl High 35.1-43.9 [facility] Glomerular filtration rate ( GFR) estimation/1.73 sq m using serum, plasma, or whole bOrdered By: Odalis Saravia on 10-23-2024 GFR/1.73 sq M.predicted among non-blacks MDRD (S/P/Bld) [Vol rate/Area] 56 mL/min/{1.73_m2} Low >60 [facility] Comment on above: mL/min/1.73m2 CKD-EP I Creatinine Equation (2020) Hematocrit Auto (Bld) [Volum e fraction]Ordered By: Odalis Saravia on 10-23-2024 Hematocrit (Bld) [Volume fraction] 35.2 % Low 37-47 [facility] Hemoglobin measurementOrdere d By: Odalis Saravia on 10-23-2024 Hemoglobin (Bld) [Mass/Vol] 11.6 g/dL Low 12.0-15.0 [facility] Immature granulocytes/100 WB C Auto (Bld)Ordered By: Odalis Saravia on 10-23-2024 Immature granulocytes/100 WBC (Bld) 0.200 % 0.0-0.9 [facility] Comment on above: IG% - Immature Granu locytes (promyelocytes, myelocytes and metamyelocytes) > 1% indicates that a LEFT SHIFT is Present. LDL calc ser/plasOrdered By: Odalis Saravia on 10-23-2024 Cholesterol in LDL [Mass/Vol] 123 mg/dL [facility] Comment on above: Dyegrrehns=789-964 m g/dL & Higher Nvxp=966 mg/dL or greater Laboratory - Chemistry and C hemistry - challengeOrdered By: Odalis Saravia on 10-23-2024 AST [Catalytic activity/Vol] 44 U/L High <32 [facility] MCV (mean corpuscular volume ) determinationOrdered By: Odalis Saravia on 10-23-2024 MCV (RBC) [Entitic vol] 97.5 fL 81-99 [facility] Mean corpuscular hemoglobin (MCH) determinationOrdered By: Odalis Saravia on 10-23-2024 MCH (RBC) [Entitic mass] 32.1 pg High 27.0-32.0 [facility] Mean corpuscular hemoglobin concentration (MCHC) determinationOrdered By: Odalis Saravia on 10-23-2024 MCHC (RBC) [Mass/Vol] 33.0 g/dL 32-36 [facility] Mean platelet volume determi nationOrdered By: Odalis Saravia on 10-23-2024 Platelet mean volume (Bld) [Entitic vol] 10.2 fL 6.2-12.0 [facility] Monocyte percentageOrdered B y: Odalis Saravia on 10-23-2024 Monocytes/100 WBC (Bld) 10.7 % High 0-10 [facility] Neutrophil percentageOrdered By: Odalis Saravia on 10-23-2024 Neutrophils/100 WBC (Bld) 24.4 % Low 47-70 [facility] Nucleated red blood cell per centageOrdered By: Odalis Saravia on 10-23-2024 Nucleated RBC/100 WBC (Bld) [Ratio] 0 % 0-5 [facility] Platelet countOrdered By: Ila Saravia on 10-23-2024 Platelets (Bld) [#/Vol] 339 10*3/uL 150-450 [facility] Potassium measurement (mass/ volume)Ordered By: Odalis Saravia on 10-23-2024 Potassium (Unsp spec) [Mass/Vol] 4.5 mmol/L 3.3-5.1 [facility] RBC Auto (Bld) [#/Vol]Ordere d By: Odalis Saravia on 10-23-2024 RBC (Bld) [#/Vol] 3.61 10*6/uL Low 4.2-5.4 [facility] Screening total cholesterol/ high density lipoprotein (HDL) cholesterol ratioOrdered By: Odalis Saravia on 10-23-2024 Cholesterol.total/Choles terol in HDL [Mass ratio] 4.11 {ratio} [facility] Serum creatinine measurement (mass/volume)Ordered By: Odalis Saravia on 10-23-2024 Creatinine [Mass/Vol] 0.97 mg/dL 0.70-1.20 [facility] Serum globulin measurementOr dered By: Odalis Saravia on 10-23-2024 Globulin (S) [Mass/Vol] 2.6 g/dL 2.2-4.2 [facility] Serum glucose measurement (m ass/volume)Ordered By: Odalis Saravia on 10-23-2024 Glucose [Mass/Vol] 85 mg/dL 70-99 [facility] Serum or plasma alanine ga otransferase (ALT) measurementOrdered By: Odalis Saravia on 10-23-2024 ALT [Catalytic activity/Vol] 15 U/L <35 [facility] Serum or plasma albumin fran urement (mass/volume)Ordered By: Odalis Saravia on 10-23-2024 Albumin [Mass/Vol] 3.8 g/dL 3.4-4.8 [facility] Serum or plasma alkaline karthik sphatase measurementOrdered By: Odalis Saravia on 10-23-2024 ALP [Catalytic activity/Vol] 176 U/L High 35-104 [facility] Serum or plasma calcium fran urement (mass/volume)Ordered By: Odalis Saravia on 10-23-2024 Calcium [Mass/Vol] 9.1 mg/dL 7.6-11.0 [facility] Serum or plasma cholesterol in HDL measurement (mass/volume)Ordered By: Odalis Saravia on 10-23-2024 Cholesterol in HDL [Mass/Vol] 48 mg/dL >40 [facility] Comment on above: National Cholesterol Education Program (NCEP) guidelines:<40 mg/dL: Low HDL-cholesterol (major risk factor for CHD)>= 60 mg/dL: High HDL-cholesterol (negative risk factor for CHD)HDL-cholesterol is affected by a number of factors, e.g. smoking, exercise, hormones, sex and age. Serum or plasma cholesterol measurement (mass/volume)Ordered By: Odalis Saravia on 10-23-2024 Cholesterol [Mass/Vol] 196 mg/dL <201 [facility] Comment on above: Cholesterol level, D esirable <200 mg/dLBorderline high cholesterol 200-239 mg/dLHigh cholesterol >=240 mg/dLRecommendations of the NCEP Adult Treatment Panel for the following risk-cutoff thresholds for the [place] population. Serum or plasma urea nitroge n measurement (mass/volume)Ordered By: Odalis Saravia on 10-23-2024 Urea nitrogen [Mass/Vol] 33 mg/dL High 4-19 [facility] Sodium levelOrdered By: Candice jeniffer Manjit on 10-23-2024 Sodium [Moles/Vol] 137 mmol/L 133-145 [facility] Total proteinOrdered By: Curtiscarlito cintronlaila Saravia on 10-23-2024 Protein [Mass/Vol] 6.5 g/dL 5.9-8.4 [facility] Triglycerides measurementOrd ered By: Odalis Saravia on 10-23-2024 Triglyceride [Mass/Vol] 126 mg/dL <199 [facility] Comment on above: The drugs N-Acetylcy steine and Metamizole may falsely depress this assay. Normal range: <150 mg/dLBorderline High: 150-199 mg/dLHigh: 200-499 mg/dLVery High: >500 mg/dL Vitamin B12 ser/plasOrdered By: Odalis Saravia on 10-23-2024 Cobalamin (Vitamin B12) [Mass/Vol] 1049 pg/mL High 180-914 [facility] White blood cell (WBC) count Ordered By: Odalis Saravia on 10-23-2024 WBC (Bld) [#/Vol] 14.3 10*3/uL High 4.4-11.0 [facility] Absolute lymphocyte countOrd ered By: Odalis Saravia on 10-22-2024 Lymphocytes Auto (Unsp spec) [#/Vol] 6.78 10*3/uL High 0.83-4.51 [facility] Absolute neutrophil countOrd ered By: Odalis Saravia on 10-22-2024 Neutrophils (Bld) [#/Vol] 3.8 10*3/uL 2.0-7.7 [facility] Anion gap in Serum or Plasma Ordered By: Odalis Saravia on 10-22-2024 Anion gap [Moles/Vol] 10 mmol/L 5-15 [facility] Automated lymphocyte count a s percentage of total leukocytesOrdered By: Odalis Saravia on 10-22-2024 Lymphocytes/100 WBC Auto (Unsp spec) 49.3 % High 19-41 [facility] BUN/creatinine ratioOrdered By: Odalis Saravia on 10-22-2024 Urea nitrogen/Creatinine [Mass ratio] 29.8 mg/mg High 10-20 [facility] Basophil percentageOrdered B y: Odalis Saravia on 10-22-2024 Basophils/100 WBC (Bld) 3.5 % High 0-1 [facility] Bilirubin, totalOrdered By: Odalis Saravia on 10-22-2024 Bilirubin [Mass/Vol] 0.40 mg/dL 0.00-1.30 [facility] Carbon dioxide, total [Moles /volume] in Central venous bloodOrdered By: Odalis Saravia on 10-22-2024 CO2 [Moles/Vol] 23.1 mmol/L 21.0-32.0 [facility] Chloride assayOrdered By: Ila Saravia on 10-22-2024 Chloride [Moles/Vol] 104 mmol/L 98-108 [facility] Eosinophil percentageOrdered By: marcy Saravia on 10-22-2024 Eosinophils/100 WBC (Bld) 10.4 % High 0-5 [facility] Erythrocyte distribution wid th ratioOrdered By: Odalis Saravia on 10-22-2024 Erythrocyte distribution width (RBC) [Ratio] 13.2 % 11.6-14.6 [facility] Erythrocyte distribution wid th standard deviationOrdered By: Odalis Saravia on 10-22-2024 Erythrocyte distribution width (RBC) [Ratio] 47.1 fl High 35.1-43.9 [facility] Glomerular filtration rate ( GFR) estimation/1.73 sq m using serum, plasma, or whole bOrdered By: Odalis Saravia on 10-22-2024 GFR/1.73 sq M.predicted among non-blacks MDRD (S/P/Bld) [Vol rate/Area] 60 mL/min/{1.73_m2} >60 [facility] Comment on above: mL/min/1.73m2 CKD-EP I Creatinine Equation (2020) Hematocrit Auto (Bld) [Volum e fraction]Ordered By: Odalis Saravia on 10-22-2024 Hematocrit (Bld) [Volume fraction] 35.2 % Low 37-47 [facility] Hemoglobin measurementOrdere d By: Odalis Saravia on 10-22-2024 Hemoglobin (Bld) [Mass/Vol] 11.6 g/dL Low 12.0-15.0 [facility] Immature granulocytes/100 WB C Auto (Bld)Ordered By: Odalis Saravia on 10-22-2024 Immature granulocytes/100 WBC (Bld) 0.300 % 0.0-0.9 [facility] Comment on above: IG% - Immature Granu locytes (promyelocytes, myelocytes and metamyelocytes) > 1% indicates that a LEFT SHIFT is Present. Laboratory - Chemistry and C hemistry - challengeOrdered By: Odalis Saravia on 10-22-2024 AST [Catalytic activity/Vol] 38 U/L High <32 [facility] MCV (mean corpuscular volume ) determinationOrdered By: Odalis Saravia on 10-22-2024 MCV (RBC) [Entitic vol] 96.2 fL 81-99 [facility] Mean corpuscular hemoglobin (MCH) determinationOrdered By: bonniewilliamsportlaila Saravia on 10-22-2024 MCH (RBC) [Entitic mass] 31.7 pg 27.0-32.0 [facility] Mean corpuscular hemoglobin concentration (MCHC) determinationOrdered By: Odalis Saravia on 10-22-2024 MCHC (RBC) [Mass/Vol] 33.0 g/dL 32-36 [facility] Mean platelet volume determi nationOrdered By: marcy Saravia on 10-22-2024 Platelet mean volume (Bld) [Entitic vol] 10.3 fL 6.2-12.0 [facility] Monocyte percentageOrdered B y: Odalis Saravia on 10-22-2024 Monocytes/100 WBC (Bld) 9.1 % 0-10 [facility] Neutrophil percentageOrdered By: marcy Saravia on 10-22-2024 Neutrophils/100 WBC (Bld) 27.4 % Low 47-70 [facility] Nucleated red blood cell per centageOrdered By: Odalis Saravia on 10-22-2024 Nucleated RBC/100 WBC (Bld) [Ratio] 0 % 0-5 [facility] Platelet countOrdered By: Ila Saravia on 10-22-2024 Platelets (Bld) [#/Vol] 346 10*3/uL 150-450 [facility] Platelet estimateOrdered By: Odalis Saravia on 10-22-2024 Platelets LM Ql (Bld) A ADEQ [facility] Potassium measurement (mass/ volume)Ordered By: Odalis Saravia on 10-22-2024 Potassium (Unsp spec) [Mass/Vol] 4.4 mmol/L 3.3-5.1 [facility] RBC Auto (Bld) [#/Vol]Ordere d By: Odalis Saravia on 10-22-2024 RBC (Bld) [#/Vol] 3.66 10*6/uL Low 4.2-5.4 [facility] Review by pathologistOrdered By: Odalis Saravia on 10-22-2024 Pathologist review Porter (Unsp spec) [Interp] Reviewed [facility] Comment on above: Previous reported re sult: Heide mckenna Edited by: IVAN on 11/06/24:1024SEE REPORT IN PATIENT'S EMR AMENDED REPORT 11/06/24 1024 PATH REV previously reported as: Heide mckenna Serum creatinine measurement (mass/volume)Ordered By: Odalis Saravia on 10-22-2024 Creatinine [Mass/Vol] 0.92 mg/dL 0.70-1.20 [facility] Serum globulin measurementOr dered By: Odalis Saravia on 10-22-2024 Globulin (S) [Mass/Vol] 2.8 g/dL 2.2-4.2 [facility] Serum glucose measurement (m ass/volume)Ordered By: Odalis Saravia on 10-22-2024 Glucose [Mass/Vol] 90 mg/dL 70-99 [facility] Serum or plasma alanine ga otransferase (ALT) measurementOrdered By: Odalis Saravia on 10-22-2024 ALT [Catalytic activity/Vol] 19 U/L <35 [facility] Serum or plasma albumin fran urement (mass/volume)Ordered By: Odalis Saravia on 10-22-2024 Albumin [Mass/Vol] 4.0 g/dL 3.4-4.8 [facility] Serum or plasma albumin/glob ulin mass ratioOrdered By: Odalis Saravia on 10-22-2024 Albumin/Globulin [Mass ratio] 1.4 {ratio} 0.9-2.4 [facility] Serum or plasma alkaline karthik sphatase measurementOrdered By: Odalis Saravia on 10-22-2024 ALP [Catalytic activity/Vol] 173 U/L High 35-104 [facility] Serum or plasma calcium fran urement (mass/volume)Ordered By: Odalis Saravia on 10-22-2024 Calcium [Mass/Vol] 9.3 mg/dL 7.6-11.0 [facility] Serum or plasma urea nitroge n measurement (mass/volume)Ordered By: Odalis Saravia on 10-22-2024 Urea nitrogen [Mass/Vol] 28 mg/dL High 4-19 [facility] Sodium levelOrdered By: Candice Saravia on 10-22-2024 Sodium [Moles/Vol] 137 mmol/L 133-145 [facility] Teardrop cell detectionOrder ed By: Odalis Saravia on 10-22-2024 Dacrocytes LM Ql (Bld) 1+ [facility] Total proteinOrdered By: Curtis Saravia on 10-22-2024 Protein [Mass/Vol] 6.8 g/dL 5.9-8.4 [facility] White blood cell (WBC) count Ordered By: Odalis Saravia on 10-22-2024 WBC (Bld) [#/Vol] 13.7 10*3/uL High 4.4-11.0 [facility] CNOVon 10-20-2024 CNOV Office Visit (NRMDN) KAYLENE HAYNES ([id number]) 1935 F Date Time Provider Department 10/20/24 11:00 AM SELVIN FELDER NRMDN During your visit today, we recorded the following information about you: Weight 43.4 kg Selvin Felder MD 10/20/2024 11:31 AM Addendum It was [...] or you can send a message through [employer]. You can also now schedule and select appointments through [employer]. MD Bradford Quiros Kristin, MD 10/20/2024 11:40 AM Signed [facility] - FOLLOW UP EVALUATION Primary Movement Disorders Neurologist: Selvin Felder MD Primary Movement Disorders TONE: Not yet assigned Recording using [employer] software for draft documentation of the visit was discussed with the patient/authorized sales representative supervisor; all questions welcomed and answered. Patient/authorized sales representative supervisor agreed to proceed Howard Zimmerman MD [address] [facility] [address] [facility] [address] Dear Howard Zimmerman MD: I had the pleasure of [...] exercise and therapy - exercise Interval History: Kaylene is an 89-year-old female with a history of Parkinson's disease presenting with fatigue, lightheadedness, and hand contractures. Kaylene reports feeling lightheaded upon waking in the [...] endorse any fluid restrictions advised by a warehouse engineer. She reports persistent fatigue, stating, I just [...] Wearing off: no Dyskinesia: yes Prior Anti-Parkinson (more content not included)... Normal [facility] Absolute lymphocyte countOrd ered By: Odalis Sraavia on 09-18-2024 Lymphocytes Auto (Unsp spec) [#/Vol] 6.98 10*3/uL High 0.83-4.51 [facility] Absolute neutrophil countOrd ered By: Odalis Saravia on 09-18-2024 Neutrophils (Bld) [#/Vol] 4.3 10*3/uL 2.0-7.7 [facility] Anion gap in Serum or Plasma Ordered By: Odalis Saravia on 09-18-2024 Anion gap [Moles/Vol] 12 mmol/L 5-15 [facility] Automated lymphocyte count a s percentage of total leukocytesOrdered By: Odalis Saravia on 09-18-2024 Lymphocytes/100 WBC Auto (Unsp spec) 46.1 % High 19-41 [facility] BUN/creatinine ratioOrdered By: obnniewilliamsportlaila Saravia on 09-18-2024 Urea nitrogen/Creatinine [Mass ratio] 21.8 mg/mg High 10-20 [facility] Basophil percentageOrdered B y: Odalis Saravia on 09-18-2024 Basophils/100 WBC (Bld) 2.9 % High 0-1 [facility] Bilirubin directOrdered By: Odalis Saravia on 09-18-2024 Bilirubin.direct [Mass/Vol] 0.19 mg/dL 0.00-0.30 [facility] Bilirubin, totalOrdered By: Candicewilliamsportlaila Saravia on 09-18-2024 Bilirubin [Mass/Vol] 0.42 mg/dL 0.00-1.30 [facility] Carbon dioxide, total [Moles /volume] in Central venous bloodOrdered By: Odalis Saravia on 09-18-2024 CO2 [Moles/Vol] 21.8 mmol/L 21.0-32.0 [facility] Chloride assayOrdered By: Ila Saravia on 09-18-2024 Chloride [Moles/Vol] 104 mmol/L 98-108 [facility] Eosinophil percentageOrdered By: Odalis Saravia on 09-18-2024 Eosinophils/100 WBC (Bld) 13.4 % High 0-5 [facility] Erythrocyte distribution wid th (RBC) [Ratio]Ordered By: Odalis Saravia on 09-18-2024 Erythrocyte distribution width (RBC) [Entitic vol] 46.9 fL High 35.1-43.9 [facility] Erythrocyte distribution wid th ratioOrdered By: Odalis Saravia on 09-18-2024 Erythrocyte distribution width (RBC) [Ratio] 13.2 % 11.6-14.6 [facility] Erythrocyte distribution wid th standard deviationOrdered By: marcy Saravia on 09-18-2024 Erythrocyte distribution width (RBC) [Ratio] 46.9 fl High 35.1-43.9 [facility] GFR/1.73 sq M.predicted jitendra g non-blacks MDRD (S/P/Bld) [Vol rate/Area]Ordered By: Odalis Saravia on 09-18-2024 Estimated GFR (MDRD) Non-Af Amer 44 Low >60 [facility] Comment on above: mL/min/1.73m2 CKD-EP I Creatinine Equation (2020) Glomerular filtration rate ( GFR) estimation/1.73 sq m using serum, plasma, or whole bOrdered By: Odalis Saravia on 09-18-2024 GFR/1.73 sq M.predicted among non-blacks MDRD (S/P/Bld) [Vol rate/Area] 44 mL/min/{1.73_m2} Low >60 [facility] Comment on above: mL/min/1.73m2 CKD-EP I Creatinine Equation (2020) Hematocrit Auto (Bld) [Volum e fraction]Ordered By: Odalis Saravia on 09-18-2024 Hematocrit (Bld) [Volume fraction] 34.5 % Low 37-47 [facility] Hemoglobin measurementOrdere d By: Odalis Saravia on 09-18-2024 Hemoglobin (Bld) [Mass/Vol] 11.4 g/dL Low 12.0-15.0 [facility] Immature granulocytes/100 WB C Auto (Bld)Ordered By: Odalis Saravia on 09-18-2024 Immature granulocytes/100 WBC (Bld) 0.300 % 0.0-0.9 [facility] Comment on above: IG% - Immature Granu locytes (promyelocytes, myelocytes and metamyelocytes) > 1% indicates that a LEFT SHIFT is Present. Laboratory - Chemistry and C hemistry - challengeOrdered By: Odalis Saravia on 09-18-2024 AST [Catalytic activity/Vol] 41 U/L High <32 [facility] Lymphocytes Auto (Unsp spec) [#/Vol]Ordered By: Odalis Saravia on 09-18-2024 Lymphocytes (Bld) [#/Vol] 6.98 10*3/uL High 0.83-4.51 [facility] Lymphocytes/100 WBC Auto (Un sp spec)Ordered By: Odalis Saravia on 09-18-2024 Lymphocytes/100 WBC (Bld) 46.1 % High 19-41 [facility] MCV (mean corpuscular volume ) determinationOrdered By: Odalis Saravia on 09-18-2024 MCV (RBC) [Entitic vol] 96.6 fL 81-99 [facility] Mean corpuscular hemoglobin (MCH) determinationOrdered By: Odalis Saravia on 09-18-2024 MCH (RBC) [Entitic mass] 31.9 pg 27.0-32.0 [facility] Mean corpuscular hemoglobin concentration (MCHC) determinationOrdered By: Odalis Saravia on 09-18-2024 MCHC (RBC) [Mass/Vol] 33.0 g/dL 32-36 [facility] Mean platelet volume determi nationOrdered By: Odalis Saravia on 09-18-2024 Platelet mean volume (Bld) [Entitic vol] 10.4 fL 6.2-12.0 [facility] Monocyte percentageOrdered B y: Candicejeniffer Riccardomary on 09-18-2024 Monocytes/100 WBC (Bld) 8.8 % 0-10 [facility] Neutrophil percentageOrdered By: Odalis Guermiascarlito on 09-18-2024 Neutrophils/100 WBC (Bld) 28.5 % Low 47-70 [facility] Nucleated red blood cell per centageOrdered By: Odalis Saravia on 09-18-2024 Nucleated RBC/100 WBC (Bld) [Ratio] 0 % 0-5 [facility] Platelet countOrdered By: Ila bonniejeniffer Saravia on 09-18-2024 Platelets (Bld) [#/Vol] 328 10*3/uL 150-450 [facility] Potassium (Unsp spec) [Mass/ Vol]Ordered By: Odalis Saravia on 09-18-2024 Potassium [Moles/Vol] 4.5 mmol/L 3.3-5.1 [facility] Potassium measurement (mass/ volume)Ordered By: Odalis Saravia on 09-18-2024 Potassium (Unsp spec) [Mass/Vol] 4.5 mmol/L 3.3-5.1 [facility] RBC Auto (Bld) [#/Vol]Ordere d By: Odalis Guermiascarlito on 09-18-2024 RBC (Bld) [#/Vol] 3.57 10*6/uL Low 4.2-5.4 [facility] Serum creatinine measurement (mass/volume)Ordered By: Odalis Saravia on 09-18-2024 Creatinine [Mass/Vol] 1.19 mg/dL 0.70-1.20 [facility] Serum globulin measurementOr dered By: Odalis Saravia on 09-18-2024 Globulin (S) [Mass/Vol] 2.7 g/dL 2.2-4.2 [facility] Serum glucose measurement (m ass/volume)Ordered By: Odalis Saravia on 09-18-2024 Glucose [Mass/Vol] 83 mg/dL 70-99 [facility] Serum or plasma alanine ga otransferase (ALT) measurementOrdered By: Odalis Saravia on 09-18-2024 ALT [Catalytic activity/Vol] 5 U/L <35 [facility] Serum or plasma albumin fran urement (mass/volume)Ordered By: Odalis Saravia on 09-18-2024 Albumin [Mass/Vol] 3.8 g/dL 3.4-4.8 [facility] Serum or plasma alkaline karthik sphatase measurementOrdered By: Odalis Saravia on 09-18-2024 ALP [Catalytic activity/Vol] 142 U/L High 35-104 [facility] Serum or plasma calcium fran urement (mass/volume)Ordered By: Odalis Saravia on 09-18-2024 Calcium [Mass/Vol] 9.1 mg/dL 7.6-11.0 [facility] Serum or plasma urea nitroge n measurement (mass/volume)Ordered By: Odalis Saravia on 09-18-2024 Urea nitrogen [Mass/Vol] 26 mg/dL High 4-19 [facility] Sodium levelOrdered By: Candice Saravia on 09-18-2024 Sodium [Moles/Vol] 137 mmol/L 133-145 [facility] Total proteinOrdered By: Curtis Saravia on 09-18-2024 Protein [Mass/Vol] 6.5 g/dL 5.9-8.4 [facility] Vitamin B12 ser/plasOrdered By: Odalis Saravia on 09-18-2024 Cobalamin (Vitamin B12) [Mass/Vol] 1000 pg/mL High 180-914 [facility] Vitamin D, 25-hydroxyOrdered By: Odalis Saravia on 09-18-2024 Vitamin D 25-Hydroxy 42.0 ng/mL 30-100 [facility] Comment on above: Vitamin D StatusDefi ciency: <20 ng/mL (50nmol/L)Insufficiency: 20-30 ng/mL (50-75 nmol/L)Sufficiency: 30-100 ng/mL (75-250 nmol/L)Toxicity: >100 ng/mL (>250 nmol/L) White blood cell (WBC) count Ordered By: Odalis Saravia on 09-18-2024 WBC (Bld) [#/Vol] 15.1 10*3/uL High 4.4-11.0 [facility] Absolute lymphocyte countOrd ered By: Ilabonniejeniffer Tocarlito on 09-11-2024 Lymphocytes Auto (Unsp spec) [#/Vol] 6.28 10*3/uL High 0.83-4.51 [facility] Absolute neutrophil countOrd ered By: Odalis Tocarlito on 09-11-2024 Neutrophils (Bld) [#/Vol] 4.3 10*3/uL 2.0-7.7 [facility] Anion gap in Serum or Plasma Ordered By: Odalis Saravia on 09-11-2024 Anion gap [Moles/Vol] 9 mmol/L 5-15 [facility] Automated lymphocyte count a s percentage of total leukocytesOrdered By: Odalis Saravia on 09-11-2024 Lymphocytes/100 WBC Auto (Unsp spec) 45.1 % High 19-41 [facility] BUN/creatinine ratioOrdered By: marcy Guermiascarlito on 09-11-2024 Urea nitrogen/Creatinine [Mass ratio] 27.1 mg/mg High 10-20 [facility] Basophil percentageOrdered B y: Marthalaila Guermiascarlito on 09-11-2024 Basophils/100 WBC (Bld) 3.2 % High 0-1 [facility] Carbon dioxide, total [Moles /volume] in Central venous bloodOrdered By: Odalis Guermiascarlito on 09-11-2024 CO2 [Moles/Vol] 25.4 mmol/L 21.0-32.0 [facility] Chloride assayOrdered By: Ila bonniejeniffer Saravia on 09-11-2024 Chloride [Moles/Vol] 104 mmol/L 98-108 [facility] Eosinophil percentageOrdered By: Ilabonnielavonnelaila Guermiascarlito on 09-11-2024 Eosinophils/100 WBC (Bld) 10.6 % High 0-5 [facility] Erythrocyte distribution wid th (RBC) [Ratio]Ordered By: Candicelavonnelaila Guermiascarlito on 09-11-2024 Erythrocyte distribution width (RBC) [Entitic vol] 47.8 fL High 35.1-43.9 [facility] Erythrocyte distribution wid th ratioOrdered By: Odalis Saravia on 09-11-2024 Erythrocyte distribution width (RBC) [Ratio] 13.3 % 11.6-14.6 [facility] Erythrocyte distribution wid th standard deviationOrdered By: Odalis Saravia on 09-11-2024 Erythrocyte distribution width (RBC) [Ratio] 47.8 fl High 35.1-43.9 [facility] GFR/1.73 sq M.predicted jitendra g non-blacks MDRD (S/P/Bld) [Vol rate/Area]Ordered By: Odalis Saravia on 09-11-2024 Estimated GFR (MDRD) Non-Af Amer 53 Low >60 [facility] Comment on above: mL/min/1.73m2 CKD-EP I Creatinine Equation (2020) Glomerular filtration rate ( GFR) estimation/1.73 sq m using serum, plasma, or whole bOrdered By: Odalis Saravia on 09-11-2024 GFR/1.73 sq M.predicted among non-blacks MDRD (S/P/Bld) [Vol rate/Area] 53 mL/min/{1.73_m2} Low >60 [facility] Comment on above: mL/min/1.73m2 CKD-EP I Creatinine Equation (2020) Hematocrit Auto (Bld) [Volum e fraction]Ordered By: Odalis Saravia 09-11-2024 Hematocrit (Bld) [Volume fraction] 37.5 % 37-47 [facility] Hemoglobin measurementOrdere d By: Odalis Saravia on 09-11-2024 Hemoglobin (Bld) [Mass/Vol] 12.2 g/dL 12.0-15.0 [facility] Immature granulocytes/100 WB C Auto (Bld)Ordered By: Odalis Saravia on 09-11-2024 Immature granulocytes/100 WBC (Bld) 0.300 % 0.0-0.9 [facility] Comment on above: IG% - Immature Granu locytes (promyelocytes, myelocytes and metamyelocytes) > 1% indicates that a LEFT SHIFT is Present. Lymphocytes Auto (Unsp spec) [#/Vol]Ordered By: Odalis Riccardoermiase on 09-11-2024 Lymphocytes (Bld) [#/Vol] 6.28 10*3/uL High 0.83-4.51 [facility] Lymphocytes/100 WBC Auto (Un sp spec)Ordered By: Efbonnieongbe Zuleikae on 09-11-2024 Lymphocytes/100 WBC (Bld) 45.1 % High 19-41 [facility] MCV (mean corpuscular volume ) determinationOrdered By: Candiceonglaila Guermiase on 09-11-2024 MCV (RBC) [Entitic vol] 98.4 fL 81-99 [facility] Mean corpuscular hemoglobin (MCH) determinationOrdered By: Odalis Guermiascarlito on 09-11-2024 MCH (RBC) [Entitic mass] 32.0 pg 27.0-32.0 [facility] Mean corpuscular hemoglobin concentration (MCHC) determinationOrdered By: Odalis Guermiascarlito on 09-11-2024 MCHC (RBC) [Mass/Vol] 32.5 g/dL 32-36 [facility] Mean platelet volume determi nationOrdered By: Candicelavonnelaila Guermiascarlito on 09-11-2024 Platelet mean volume (Bld) [Entitic vol] 11.0 fL 6.2-12.0 [facility] Monocyte percentageOrdered B y: Candicelavonnelaila Guermiase on 09-11-2024 Monocytes/100 WBC (Bld) 9.8 % 0-10 [facility] Neutrophil percentageOrdered By: Candicelavonnelaila Guermiase on 09-11-2024 Neutrophils/100 WBC (Bld) 31.0 % Low 47-70 [facility] Nucleated red blood cell per centageOrdered By: Candicelavonnelaila Guermiase on 09-11-2024 Nucleated RBC/100 WBC (Bld) [Ratio] 0 % 0-5 [facility] Platelet countOrdered By: Ef bonnieonglaila Guermiase on 09-11-2024 Platelets (Bld) [#/Vol] 267 10*3/uL 150-450 [facility] Platelet estimateOrdered By: Odalis Toe on 09-11-2024 Platelets LM Ql (Bld) A [facility] Platelets LM Ql (Bld)Ordered By: Odalis Saravia on 09-11-2024 Platelet Estimate A [facility] Potassium (Unsp spec) [Mass/ Vol]Ordered By: Odalis Saravia on 09-11-2024 Potassium [Moles/Vol] 4.5 mmol/L 3.3-5.1 [facility] Potassium measurement (mass/ volume)Ordered By: Odalis Saravia on 09-11-2024 Potassium (Unsp spec) [Mass/Vol] 4.5 mmol/L 3.3-5.1 [facility] RBC Auto (Bld) [#/Vol]Ordere d By: Odalis Saravia on 09-11-2024 RBC (Bld) [#/Vol] 3.81 10*6/uL Low 4.2-5.4 [facility] Reactive lymphocyte countOrd ered By: Odalis Saravia on 09-11-2024 Reactive Lymphocytes 1+ [facility] Serum creatinine measurement (mass/volume)Ordered By: Odalis Saravia on 09-11-2024 Creatinine [Mass/Vol] 1.02 mg/dL 0.70-1.20 [facility] Serum glucose measurement (m ass/volume)Ordered By: Odalis Saravia on 09-11-2024 Glucose [Mass/Vol] 83 mg/dL 70-99 [facility] Serum or plasma calcium fran urement (mass/volume)Ordered By: Odalis Saravia on 09-11-2024 Calcium [Mass/Vol] 9.3 mg/dL 7.6-11.0 [facility] Serum or plasma urea nitroge n measurement (mass/volume)Ordered By: Odalis Saravia on 09-11-2024 Urea nitrogen [Mass/Vol] 28 mg/dL High 4-19 [facility] Sodium levelOrdered By: Candice Saravia on 09-11-2024 Sodium [Moles/Vol] 138 mmol/L 133-145 [facility] White blood cell (WBC) count Ordered By: Odalis Saravia on 09-11-2024 WBC (Bld) [#/Vol] 13.9 10*3/uL High 4.4-11.0 [facility] Absolute lymphocyte countOrd ered By: Candicelavonnelaila Guermiascarlito on 08-14-2024 Lymphocytes Auto (Unsp spec) [#/Vol] 7.18 10*3/uL High 0.83-4.51 [facility] Absolute neutrophil countOrd ered By: Odalis Saravia on 08-14-2024 Neutrophils (Bld) [#/Vol] 3.4 10*3/uL 2.0-7.7 [facility] Automated lymphocyte count a s percentage of total leukocytesOrdered By: Odalis Saravia on 08-14-2024 Lymphocytes/100 WBC Auto (Unsp spec) 55.1 % High 19-41 [facility] BUN/creatinine ratioOrdered By: Odalis Saravia on 08-14-2024 Urea nitrogen/Creatinine [Mass ratio] 29.0 mg/mg High 10-20 [facility] Basophil percentageOrdered B y: Odalis Saravia on 08-14-2024 Basophils/100 WBC (Bld) 3.1 % High 0-1 [facility] Carbon dioxide measurementOr dered By: Odalis Saravia on 08-14-2024 CO2 [Moles/Vol] 22.8 mmol/L 22.0-29.0 [facility] Chloride measurementOrdered By: Odalis Saravia on 08-14-2024 Chloride [Moles/Vol] 104 mmol/L 96-108 [facility] Creatinine [Moles/Vol]Ordere d By: Odalis Saravia on 08-14-2024 Creatinine [Mass/Vol] 1.0 mg/dL 0.6-1.0 [facility] Eosinophil percentageOrdered By: Odalis Saravia on 08-14-2024 Eosinophils/100 WBC (Bld) 4.1 % 0-5 [facility] Erythrocyte distribution wid th (RBC) [Ratio]Ordered By: Odalis Saravia on 08-14-2024 Erythrocyte distribution width (RBC) [Entitic vol] 48.2 fL High 35.1-43.9 [facility] Erythrocyte distribution wid th ratioOrdered By: Odalis Saravia on 08-14-2024 Erythrocyte distribution width (RBC) [Ratio] 13.4 % 11.6-14.6 [facility] Erythrocyte distribution wid th standard deviationOrdered By: Odalis Saravia on 08-14-2024 Erythrocyte distribution width (RBC) [Ratio] 48.2 fl High 35.1-43.9 [facility] GFR/1.73 sq M.predicted jitendra g non-blacks MDRD (S/P/Bld) [Vol rate/Area]Ordered By: Odalis Saravia on 08-14-2024 Estimated GFR (MDRD) Non-Af Amer 54 Low >60 [facility] Comment on above: mL/min/1.73m2 CKD-EP I Creatinine Equation (2020) Glomerular filtration rate ( GFR) estimation/1.73 sq m using serum, plasma, or whole bOrdered By: marcy Saravia on 08-14-2024 GFR/1.73 sq M.predicted among non-blacks MDRD (S/P/Bld) [Vol rate/Area] 54 mL/min/{1.73_m2} Low >60 [facility] Comment on above: mL/min/1.73m2 CKD-EP I Creatinine Equation (2020) Hematocrit Auto (Bld) [Volum e fraction]Ordered By: Odalis Saravia 08-14-2024 Hematocrit (Bld) [Volume fraction] 35.0 % Low 37-47 [facility] Hemoglobin measurementOrdere d By: Odalis Saravia on 08-14-2024 Hemoglobin (Bld) [Mass/Vol] 11.5 g/dL Low 12.0-15.0 [facility] Immature granulocytes/100 WB C Auto (Bld)Ordered By: marcy Saravia 08-14-2024 Immature granulocytes/100 WBC (Bld) 0.200 % 0.0-0.9 [facility] Comment on above: IG% - Immature Granu locytes (promyelocytes, myelocytes and metamyelocytes) > 1% indicates that a LEFT SHIFT is Present. Lymphocytes Auto (Unsp spec) [#/Vol]Ordered By: Odalis Saravia on 08-14-2024 Lymphocytes (Bld) [#/Vol] 7.18 10*3/uL High 0.83-4.51 [facility] Lymphocytes/100 WBC Auto (Un sp spec)Ordered By: Odalis Saravia on 08-14-2024 Lymphocytes/100 WBC (Bld) 55.1 % High 19-41 [facility] MCV (mean corpuscular volume ) determinationOrdered By: Odalis Tocarlito on 08-14-2024 MCV (RBC) [Entitic vol] 97.2 fL 81-99 [facility] Mean corpuscular hemoglobin (MCH) determinationOrdered By: Ilabonniejeniffer Saravia on 08-14-2024 MCH (RBC) [Entitic mass] 31.9 pg 27.0-32.0 [facility] Mean corpuscular hemoglobin concentration (MCHC) determinationOrdered By: Ilamarcy Guermiascarlito on 08-14-2024 MCHC (RBC) [Mass/Vol] 32.9 g/dL 32-36 [facility] Mean platelet volume determi nationOrdered By: Odalis Saravia on 08-14-2024 Platelet mean volume (Bld) [Entitic vol] 10.0 fL 6.2-12.0 [facility] Monocyte percentageOrdered B y: Odalis Saravia on 08-14-2024 Monocytes/100 WBC (Bld) 11.4 % High 0-10 [facility] Neutrophil percentageOrdered By: Ilabonniejeniffer Tocarlito on 08-14-2024 Neutrophils/100 WBC (Bld) 26.1 % Low 47-70 [facility] Nucleated red blood cell per centageOrdered By: Odalis Saravia on 08-14-2024 Nucleated RBC/100 WBC (Bld) [Ratio] 0 % 0-5 [facility] Platelet countOrdered By: Ila Saravia on 08-14-2024 Platelets (Bld) [#/Vol] 372 10*3/uL 150-450 [facility] RBC Auto (Bld) [#/Vol]Ordere d By: Odalis Saravia on 08-14-2024 RBC (Bld) [#/Vol] 3.60 10*6/uL Low 4.2-5.4 [facility] Reactive lymphocyte countOrd ered By: Odalis Saravia on 08-14-2024 Reactive Lymphocytes 2+ [facility] Serum glucose measurement (m ass/volume)Ordered By: Odalis Saravia on 08-14-2024 Glucose [Mass/Vol] 85 mg/dL 70-99 [facility] Serum or plasma anion gap de termination (moles/volume)Ordered By: Odalis Saravia on 08-14-2024 Anion gap [Moles/Vol] 12 mmol/L 5-15 [facility] Serum or plasma calcium fran urement (mass/volume)Ordered By: Odalis Saravia on 08-14-2024 Calcium [Mass/Vol] 9.5 mg/dL 7.6-11.0 [facility] Serum or plasma creatinine m easurement (moles/volume)Ordered By: Odalis Saravia on 08-14-2024 Creatinine [Moles/Vol] 1.0 mg/dL 0.6-1.0 [facility] Serum or plasma potassium me asurementOrdered By: Odalis Saravia on 08-14-2024 Potassium [Moles/Vol] 4.5 mmol/L 3.3-5.1 [facility] Serum or plasma sodium measu rement (moles/volume)Ordered By: Odalis Saravia on 08-14-2024 Sodium [Moles/Vol] 138 mmol/L 133-145 [facility] Serum or plasma urea nitroge n measurement (mass/volume)Ordered By: Odalis Saravia on 08-14-2024 Urea nitrogen [Mass/Vol] 29 mg/dL High 4-19 [facility] White blood cell (WBC) count Ordered By: Odalis Saravia on 08-14-2024 WBC (Bld) [#/Vol] 13.0 10*3/uL High 4.4-11.0 [facility] Absolute lymphocyte countOrd ered By: Odalis Saravia on 07-17-2024 Lymphocytes Auto (Unsp spec) [#/Vol] 8.58 10*3/uL High 0.83-4.51 [facility] Absolute neutrophil countOrd ered By: Odlais Saravia on 07-17-2024 Neutrophils (Bld) [#/Vol] 4.1 10*3/uL 2.0-7.7 [facility] Automated lymphocyte count a s percentage of total leukocytesOrdered By: Odalis Saravia on 07-17-2024 Lymphocytes/100 WBC Auto (Unsp spec) 53.6 % High 19-41 [facility] Basophil percentageOrdered B y: Odalis Saravia on 07-17-2024 Basophils/100 WBC (Bld) 3.1 % High 0-1 [facility] Blood urea nitrogen (BUN)/cr eatinine ratioOrdered By: Odalis Saravia on 07-17-2024 Urea nitrogen/Creatinine [Mass ratio] 23.9 mg/mg High 10-20 [facility] Carbon dioxide measurementOr dered By: marcy Saravia on 07-17-2024 CO2 [Moles/Vol] 26.0 mmol/L 21.0-32.0 [facility] Chloride measurementOrdered By: bonniewilliamsportlaila Saravia on 07-17-2024 Chloride [Moles/Vol] 106 mmol/L 98-107 [facility] Eosinophil percentageOrdered By: Odalis Saravia on 07-17-2024 Eosinophils/100 WBC (Bld) 8.2 % High 0-5 [facility] Erythrocyte distribution wid th (RBC) [Ratio]Ordered By: Odalis Saravia on 07-17-2024 Erythrocyte distribution width (RBC) [Entitic vol] 47.9 fL High 35.1-43.9 [facility] Erythrocyte distribution wid th ratioOrdered By: Odalis Saravia on 07-17-2024 Erythrocyte distribution width (RBC) [Ratio] 13.6 % 11.6-14.6 [facility] Erythrocyte distribution wid th standard deviationOrdered By: Odalis Saravia on 07-17-2024 Erythrocyte distribution width (RBC) [Ratio] 47.9 fl High 35.1-43.9 [facility] Estimated glomerular filtrat ion rate (GFR) AmericanOrdered By: Odalis Saravia on 07-17-2024 Estimated GFR (MDRD) Amer 56 mL/min Low >60 [facility] Comment on above: GFR Calc Glomerular filtration rate ( GFR) estimationOrdered By: Odalis Saravia on 07-17-2024 Estimated GFR (MDRD) Non-Af Amer 46 mL/min Low >60 [facility] Comment on above: Non- GFR Calc GFR/1.73 sq M.predicted among non-blacks MDRD (S/P/Bld) [Vol rate/Area] 46 mL/min/{1.73_m2} Low >60 [facility] Comment on above: Non- GFR Calc Glucose measurementOrdered B y: Odalis Saravia on 07-17-2024 Glucose [Mass/Vol] 85 mg/dL 74-106 [facility] Hematocrit Auto (Bld) [Volum e fraction]Ordered By: marcy Saravia on 07-17-2024 Hematocrit (Bld) [Volume fraction] 36.1 % Low 37-47 [facility] Hemoglobin measurementOrdere d By: Odalis Saravia on 07-17-2024 Hemoglobin (Bld) [Mass/Vol] 12.0 g/dL 12.0-15.0 [facility] Immature granulocytes/100 WB C Auto (Bld)Ordered By: Odalis Saravia on 07-17-2024 Immature granulocytes/100 WBC (Bld) 0.300 % 0.0-0.9 [facility] Comment on above: IG% - Immature Granu locytes (promyelocytes, myelocytes and metamyelocytes) > 1% indicates that a LEFT SHIFT is Present. Lymphocytes Auto (Unsp spec) [#/Vol]Ordered By: Odalis Saravia on 07-17-2024 Lymphocytes (Bld) [#/Vol] 8.58 10*3/uL High 0.83-4.51 [facility] Lymphocytes/100 WBC Auto (Un sp spec)Ordered By: Odalis Saravia on 07-17-2024 Lymphocytes/100 WBC (Bld) 53.6 % High 19-41 [facility] MCV (mean corpuscular volume ) determinationOrdered By: Odalis Saravia on 07-17-2024 MCV (RBC) [Entitic vol] 95.3 fL 81-99 [facility] Mean corpuscular hemoglobin (MCH) determinationOrdered By: Odalis Saravia on 07-17-2024 MCH (RBC) [Entitic mass] 31.7 pg 27.0-32.0 [facility] Mean corpuscular hemoglobin concentration (MCHC) determinationOrdered By: Odalis Saravia on 07-17-2024 MCHC (RBC) [Mass/Vol] 33.2 g/dL 32-36 [facility] Mean platelet volume determi nationOrdered By: Odalis Saravia on 07-17-2024 Platelet mean volume (Bld) [Entitic vol] 10.0 fL 6.2-12.0 [facility] Monocyte percentageOrdered B y: Odalis Saravia on 07-17-2024 Monocytes/100 WBC (Bld) 9.2 % 0-10 [facility] Neutrophil percentageOrdered By: Odalis Saravia on 07-17-2024 Neutrophils/100 WBC (Bld) 25.6 % Low 47-70 [facility] Nucleated red blood cell per centageOrdered By: Odalis Saravia on 07-17-2024 Nucleated RBC/100 WBC (Bld) [Ratio] 0 % 0-5 [facility] Platelet countOrdered By: Ila Saravia on 07-17-2024 Platelets (Bld) [#/Vol] 335 10*3/uL 150-450 [facility] Potassium measurementOrdered By: Odalis Saravia on 07-17-2024 Potassium [Moles/Vol] 4.2 mmol/L 3.5-5.1 [facility] RBC Auto (Bld) [#/Vol]Ordere d By: Odalis Saravia on 07-17-2024 RBC (Bld) [#/Vol] 3.79 10*6/uL Low 4.2-5.4 [facility] Reactive lymphocyte countOrd ered By: Odalis Saravia on 07-17-2024 Reactive Lymphocytes 1+ [facility] Serum anion gap measurementO rdered By: Odalis Saravia on 07-17-2024 Anion gap [Moles/Vol] 7 mmol/L 5-15 [facility] Serum or plasma calcium fran urement (mass/volume)Ordered By: Odalis Saravia on 07-17-2024 Calcium [Mass/Vol] 9.1 mg/dL 8.5-10.1 [facility] Serum or plasma creatinine m easurement (mass/volume)Ordered By: Odalis Saravia on 07-17-2024 Creatinine [Mass/Vol] 1.17 mg/dL High 0.55-1.02 [facility] Comment on above: The validity of the calculated GFR & GFRAA in patients over 70 years has not been determined. Clinical correlation is essential. Serum or plasma urea nitroge n measurement (mass/volume)Ordered By: Odalis Saravia on 07-17-2024 Urea nitrogen [Mass/Vol] 28 mg/dL High 7-18 [facility] Sodium levelOrdered By: Candice Saravia on 07-17-2024 Sodium [Moles/Vol] 139 mmol/L 136-145 [facility] White blood cell (WBC) count Ordered By: Oadlis Saravia on 07-17-2024 WBC (Bld) [#/Vol] 16.0 10*3/uL High 4.4-11.0 [facility] 80-BY-Cbppfnj DOrdered By: Carlito Saravia on 06-26-2024 Vitamin D 25-Hydroxy 40.6 ng/mL [facility] Comment on above: Vitamin D 25(OH) Sta tus Range Deficiency <20 ng/mL (50nmol/L) Insufficiency 20 - 30 ng/mL (50 - 75 nmol/L) Sufficiency 30 - 100 ng/mL (75 - 250 nmol/L) Toxicity >100 ng/mL (>250 nmol/L) Bilirubin directOrdered By: Odalis Saravia on 06-26-2024 Bilirubin.direct [Mass/Vol] 0.10 mg/dL 0.00-0.30 [facility] Bilirubin, totalOrdered By: Odalis Saravia on 06-26-2024 Bilirubin [Mass/Vol] 0.40 mg/dL 0.20-1.00 [facility] Comment on above: For patients on eltr ombopag therapy, use of Dimension [place] TBIL is not recommended. Laboratory - Chemistry and C hemistry - challengeOrdered By: Odalis Saravia on 06-26-2024 AST [Catalytic activity/Vol] 30 U/L 15-37 [facility] Serum globulin measurementOr dered By: Odalis Saravia on 06-26-2024 Globulin (S) [Mass/Vol] 3.3 g/dL 2.2-4.2 [facility] Serum or plasma alanine ga otransferase (ALT) measurementOrdered By: Odalis Saravia on 06-26-2024 ALT [Catalytic activity/Vol] 17 U/L 13-56 [facility] Serum or plasma albumin fran urement (mass/volume)Ordered By: Odalis Saravia on 06-26-2024 Albumin [Mass/Vol] 3.2 g/dL 3.2-5.0 [facility] Serum or plasma alkaline karthik sphatase measurementOrdered By: Odalis Saravia on 06-26-2024 ALP [Catalytic activity/Vol] 162 U/L High 45-117 [facility] Total proteinOrdered By: Curtis Saravia on 06-26-2024 Protein [Mass/Vol] 6.5 g/dL 6.4-8.2 [facility] Vitamin B12 measurementOrder ed By: Odalis Saravia on 06-26-2024 Cobalamin (Vitamin B12) [Mass/Vol] 963 pg/mL High 211-911 [facility] Absolute neutrophil countOrd ered By: Odalis Saravia on 06-19-2024 Neutrophils (Bld) [#/Vol] 4.2 10*3/uL 2.0-7.7 [facility] Acanthocyte detectionOrdered By: Odalis Saravia on 06-19-2024 Acanthocytes RARE [facility] Atypical lymphocyte percenta geOrdered By: Odalis Saravia on 06-19-2024 Atypical Lymphocytes 2+ % [facility] Basophil percentageOrdered B y: Odalis Saravia on 06-19-2024 Basophils/100 WBC (Bld) 3.0 % High 0-1 [facility] Blood urea nitrogen (BUN)/cr eatinine ratioOrdered By: Odalis Saravia on 06-19-2024 Urea nitrogen/Creatinine [Mass ratio] 26.6 mg/mg High 10-20 [facility] Carbon dioxide measurementOr dered By: Odalis Saravia on 06-19-2024 CO2 [Moles/Vol] 25.0 mmol/L 21.0-32.0 [facility] Chloride measurementOrdered By: Odalis Saravia on 06-19-2024 Chloride [Moles/Vol] 105 mmol/L 98-107 [facility] Eosinophil percentageOrdered By: Odalis Saravia on 06-19-2024 Eosinophils/100 WBC (Bld) 10.2 % High 0-5 [facility] Erythrocyte distribution wid th (RBC) [Ratio]Ordered By: Odalis Saravia on 06-19-2024 Erythrocyte distribution width (RBC) [Entitic vol] 48.9 fL High 35.1-43.9 [facility] Erythrocyte distribution wid th ratioOrdered By: Odalis Saravia on 06-19-2024 Erythrocyte distribution width (RBC) [Ratio] 13.7 % 11.6-14.6 [facility] Estimated glomerular filtrat ion rate (GFR) AmericanOrdered By: Odalis Saravia on 06-19-2024 Estimated GFR (MDRD) Amer 61 mL/min >60 [facility] Comment on above: GFR Calc Glomerular filtration rate ( GFR) estimationOrdered By: Odalis Saravia on 06-19-2024 Estimated GFR (MDRD) Non-Af Amer 50 mL/min Low >60 [facility] Comment on above: Non- GFR Calc Glucose measurementOrdered B y: Odalis Saravia on 06-19-2024 Glucose [Mass/Vol] 81 mg/dL 74-106 [facility] Hematocrit Auto (Bld) [Volum e fraction]Ordered By: Odalis Saravia on 06-19-2024 Hematocrit (Bld) [Volume fraction] 35.4 % Low 37-47 [facility] Hemoglobin measurementOrdere d By: Odalis Saravia on 06-19-2024 Hemoglobin (Bld) [Mass/Vol] 11.3 g/dL Low 12.0-15.0 [facility] Love-Stuttgart bodies LM Ql (B ld)Ordered By: Odalis Saravia on 06-19-2024 Love-[place] Bodies 1+ [facility] Immature granulocytes/100 WB C Auto (Bld)Ordered By: Odalis Saravia on 06-19-2024 Immature granulocytes/100 WBC (Bld) 0.300 % 0.0-0.9 [facility] Comment on above: IG% - Immature Granu locytes (promyelocytes, myelocytes and metamyelocytes) > 1% indicates that a LEFT SHIFT is Present. Laboratory - Hematology and Cell countsOrdered By: Odalis Saravia on 06-19-2024 Anisocytosis Ql (Bld) 1+ [facility] Lymphocytes Auto (Unsp spec) [#/Vol]Ordered By: Odalis Saravia on 06-19-2024 Lymphocytes (Bld) [#/Vol] 7.98 10*3/uL High 0.83-4.51 [facility] Lymphocytes/100 WBC Auto (Un sp spec)Ordered By: Odalis Saravia on 06-19-2024 Lymphocytes/100 WBC (Bld) 51.1 % High 19-41 [facility] MCV (mean corpuscular volume ) determinationOrdered By: Odalis Saravia on 06-19-2024 MCV (RBC) [Entitic vol] 96.7 fL 81-99 [facility] Mean corpuscular hemoglobin (MCH) determinationOrdered By: Odalis Saravia on 06-19-2024 MCH (RBC) [Entitic mass] 30.9 pg 27.0-32.0 [facility] Mean corpuscular hemoglobin concentration (MCHC) determinationOrdered By: Odalis Saravia on 06-19-2024 MCHC (RBC) [Mass/Vol] 31.9 g/dL Low 32-36 [facility] Mean platelet volume determi nationOrdered By: Odalis Saravia on 06-19-2024 Platelet mean volume (Bld) [Entitic vol] 9.9 fL 6.2-12.0 [facility] Monocyte percentageOrdered B y: Odalis Saravia on 06-19-2024 Monocytes/100 WBC (Bld) 8.8 % 0-10 [facility] Neutrophil percentageOrdered By: Odalis Saravia on 06-19-2024 Neutrophils/100 WBC (Bld) 26.6 % Low 47-70 [facility] Nucleated red blood cell per centageOrdered By: Odalis Saravia on 06-19-2024 Nucleated RBC/100 WBC (Bld) [Ratio] 0 % 0-5 [facility] Ovalocytes LM Ql (Bld)Ordere d By: Odalis Saravia on 06-19-2024 Ovalocytes 1+ [facility] Platelet countOrdered By: Ila Saravia on 06-19-2024 Platelets (Bld) [#/Vol] 414 10*3/uL 150-450 [facility] Platelets LM Ql (Bld)Ordered By: Odalis Saravia on 06-19-2024 Platelet Estimate SLT INC ADEQ [facility] Potassium measurementOrdered By: Odalis Saravia on 06-19-2024 Potassium [Moles/Vol] 4.2 mmol/L 3.5-5.1 [facility] RBC Auto (Bld) [#/Vol]Ordere d By: Odalis Saravia on 06-19-2024 RBC (Bld) [#/Vol] 3.66 10*6/uL Low 4.2-5.4 [facility] Serum anion gap measurementO rdered By: Odalis Saravia on 06-19-2024 Anion gap [Moles/Vol] 7 mmol/L 5-15 [facility] Serum or plasma calcium fran urement (mass/volume)Ordered By: Odalis Saravia on 06-19-2024 Calcium [Mass/Vol] 8.9 mg/dL 8.5-10.1 [facility] Serum or plasma creatinine m easurement (mass/volume)Ordered By: Odalis Saravia on 06-19-2024 Creatinine [Mass/Vol] 1.09 mg/dL High 0.55-1.02 [facility] Comment on above: The validity of the calculated GFR & GFRAA in patients over 70 years has not been determined. Clinical correlation is essential. Serum or plasma urea nitroge n measurement (mass/volume)Ordered By: Odalis Saravia on 06-19-2024 Urea nitrogen [Mass/Vol] 29 mg/dL High 7-18 [facility] Sodium levelOrdered By: Candice Saravia on 06-19-2024 Sodium [Moles/Vol] 137 mmol/L 136-145 [facility] Target cells LM Ql (Bld)Orde red By: Odalis Saravia on 06-19-2024 Target Cells RARE [facility] White blood cell (WBC) count Ordered By: Odalis Saravia on 06-19-2024 WBC (Bld) [#/Vol] 15.6 10*3/uL High 4.4-11.0 [facility] High density lipoprotein (HD L) measurementOrdered By: Odalis Saravia on 06-10-2024 Cholesterol in HDL [Mass/Vol] 49 mg/dL >40 [facility] Comment on above: The drugs N-Acetylcy steine and Metamizole may falsely depress this assay. Reference Range HDL <40 mg/dL Low HDL Cholesterol HDL >or= 60 mg/dL High HDL Cholesterol Low density lipoprotein (LDL ) cholesterol measurementOrdered By: Odalis Saravia on 06-10-2024 Cholesterol in LDL [Mass/Vol] 127 mg/dL 0-130 [facility] Serum or plasma cholesterol measurement (mass/volume)Ordered By: Odalis Saravia on 06-10-2024 Cholesterol [Mass/Vol] 214 mg/dL High <200 [facility] Comment on above: <200 mg/dL Desirable 200-240 mg/dL Borderline >240 mg/dL High Risk Triglycerides measurementOrd ered By: Odalis Saravia on 06-10-2024 Triglyceride [Mass/Vol] 192 mg/dL <199 [facility] Comment on above: The drugs N-Acetylcy steine and Metamizole may falsely depress this assay.Serum Triglycerides Reference Interval Normal <150 mg/dL Borderline high 150 - 199 mg/dL High 200 - 499 mg/dL Very High > or = 500 mg/dL Very low density lipoprotein (VLDL) cholesterol measurementOrdered By: Odalis Saravia on 06-10-2024 VLDL Cholesterol 38 mg/dL 5-40 [facility] Absolute neutrophil countOrd ered By: Odalis Saravia on 05-22-2024 Neutrophils (Bld) [#/Vol] 3.4 10*3/uL 2.0-7.7 [facility] Basophil percentageOrdered B y: Odalis Saravia on 05-22-2024 Basophils/100 WBC (Bld) 2.7 % High 0-1 [facility] Blood urea nitrogen (BUN)/cr eatinine ratioOrdered By: Odalis Saravia on 05-22-2024 Urea nitrogen/Creatinine [Mass ratio] 24.3 mg/mg High 10-20 [facility] Carbon dioxide measurementOr dered By: Odalis Saravia on 05-22-2024 CO2 [Moles/Vol] 27.0 mmol/L 21.0-32.0 [facility] Chloride measurementOrdered By: [facility] on 05-22-2024 Chloride [Moles/Vol] 106 mmol/L 98-107 [facility] Eosinophil percentageOrdered By: Odalis Saravia on 05-22-2024 Eosinophils/100 WBC (Bld) 6.9 % High 0-5 [facility] Erythrocyte distribution wid th (RBC) [Ratio]Ordered By: Odalis Saravia on 05-22-2024 Erythrocyte distribution width (RBC) [Entitic vol] 49.4 fL High 35.1-43.9 [facility] Erythrocyte distribution wid th ratioOrdered By: bonniewilliamsportlaila Saravia on 05-22-2024 Erythrocyte distribution width (RBC) [Ratio] 13.9 % 11.6-14.6 [facility] Estimated glomerular filtrat ion rate (GFR) AmericanOrdered By: Odalis Saravia on 05-22-2024 Estimated GFR (MDRD) Amer 62 mL/min >60 [facility] Comment on above: GFR Calc Glomerular filtration rate ( GFR) estimationOrdered By: Odalis Saravia on 05-22-2024 Estimated GFR (MDRD) Non-Af Amer 51 mL/min Low >60 [facility] Comment on above: Non- GFR Calc Glucose measurementOrdered B y: Odalis Saravia on 05-22-2024 Glucose [Mass/Vol] 82 mg/dL 74-106 [facility] Hematocrit Auto (Bld) [Volum e fraction]Ordered By: Odalis Saravia on 05-22-2024 Hematocrit (Bld) [Volume fraction] 37.0 % 37-47 [facility] Hemoglobin measurementOrdere d By: Odalis Saravia on 05-22-2024 Hemoglobin (Bld) [Mass/Vol] 11.9 g/dL Low 12.0-15.0 [facility] Immature granulocytes/100 WB C Auto (Bld)Ordered By: marcy Saravia on 05-22-2024 Immature granulocytes/100 WBC (Bld) 0.300 % 0.0-0.9 [facility] Comment on above: IG% - Immature Granu locytes (promyelocytes, myelocytes and metamyelocytes) > 1% indicates that a LEFT SHIFT is Present. Lymphocytes Auto (Unsp spec) [#/Vol]Ordered By: Odalis Saravia on 05-22-2024 Lymphocytes (Bld) [#/Vol] 7.97 10*3/uL High 0.83-4.51 [facility] Lymphocytes/100 WBC Auto (Un sp spec)Ordered By: Odalis Saravia on 05-22-2024 Lymphocytes/100 WBC (Bld) 56.5 % High 19-41 [facility] MCV (mean corpuscular volume ) determinationOrdered By: Odalis Saravia on 05-22-2024 MCV (RBC) [Entitic vol] 95.9 fL 81-99 [facility] Mean corpuscular hemoglobin (MCH) determinationOrdered By: Odalis Saravia on 05-22-2024 MCH (RBC) [Entitic mass] 30.8 pg 27.0-32.0 [facility] Mean corpuscular hemoglobin concentration (MCHC) determinationOrdered By: Odalis Saravia on 05-22-2024 MCHC (RBC) [Mass/Vol] 32.2 g/dL 32-36 [facility] Mean platelet volume determi nationOrdered By: Odalis Saravia on 05-22-2024 Platelet mean volume (Bld) [Entitic vol] 10.3 fL 6.2-12.0 [facility] Monocyte percentageOrdered B y: Odalis Saravia on 05-22-2024 Monocytes/100 WBC (Bld) 9.8 % 0-10 [facility] Neutrophil percentageOrdered By: Odalis Saravia on 05-22-2024 Neutrophils/100 WBC (Bld) 23.8 % Low 47-70 [facility] Nucleated red blood cell per centageOrdered By: Odalis Saravia on 05-22-2024 Nucleated RBC/100 WBC (Bld) [Ratio] 0 % 0-5 [facility] Platelet countOrdered By: Ila Saravia on 05-22-2024 Platelets (Bld) [#/Vol] 366 10*3/uL 150-450 [facility] Potassium measurementOrdered By: Odalis Saravia on 05-22-2024 Potassium [Moles/Vol] 4.5 mmol/L 3.5-5.1 [facility] Comment on above: Slight Hemolysis, Re sult may be falsely increased. RBC Auto (Bld) [#/Vol]Ordere d By: Odalis Saravia on 05-22-2024 RBC (Bld) [#/Vol] 3.86 10*6/uL Low 4.2-5.4 [facility] Reactive lymphocyte countOrd ered By: Odalis Saravia on 05-22-2024 Reactive Lymphocytes 1+ [facility] Serum anion gap measurementO rdered By: Odalis Saravia on 05-22-2024 Anion gap [Moles/Vol] 5 mmol/L 5-15 [facility] Serum or plasma calcium fran urement (mass/volume)Ordered By: Odalis Saravia on 05-22-2024 Calcium [Mass/Vol] 9.2 mg/dL 8.5-10.1 [facility] Serum or plasma creatinine m easurement (mass/volume)Ordered By: Odalis Saravia on 05-22-2024 Creatinine [Mass/Vol] 1.07 mg/dL High 0.55-1.02 [facility] Comment on above: The validity of the calculated GFR & GFRAA in patients over 70 years has not been determined. Clinical correlation is essential. Serum or plasma urea nitroge n measurement (mass/volume)Ordered By: Odalis Saravia on 05-22-2024 Urea nitrogen [Mass/Vol] 26 mg/dL High 7-18 [facility] Sodium levelOrdered By: Candice de los santosricardo Manjit on 05-22-2024 Sodium [Moles/Vol] 138 mmol/L 136-145 [facility] White blood cell (WBC) count Ordered By: Odalis Saraiva on 05-22-2024 WBC (Bld) [#/Vol] 14.1 10*3/uL High 4.4-11.0 [facility] Basic Metabolic Profile (BMP )on 05-14-2024 BUN/CRE 22.9 RATIO High 10-20 [facility] Comment on above: Performed By: #### L 100.0100, L500.2500 #### [facility] [address] [place], [address] CA,Total 9.3 mg/dL Normal 8.5-10.1 [facility] Comment on above: Performed By: #### L 100.0100, L500.2500 #### [facility] [address] [facility] [place], [address] Chloride [Moles/Vol] 107 mmol/L Normal 98-107 [facility] Comment on above: Performed By: #### L 100.0100, L500.2500 #### [facility] [address] [facility] [place], [address] CO2 [Moles/Vol] 25.0 mmol/L Normal 21.0-32.0 [facility] Comment on above: Performed By: #### L 100.0100, L500.2500 #### [facility] [address] [place], [address] Creatinine [Mass/Vol] 1.18 mg/dL High 0.55-1.02 [facility] Comment on above: Result Comment: The validity of the calculated GFR GFRAA in patients over 70 years has not been determined. Clinical correlation is essential. Performed By: #### L 100.0100, L500.2500 #### [facility] [address] [place], [address] ECRCL 24.13 ml/min Normal [facility] Comment on above: Performed By: #### L 100.0100, L500.2500 #### [facility] [address] [place], [address] EST GFR - AA 56 mL/min Low >60 [facility] Comment on above: Result Comment: Afri can Citizen Of [place] GFR Calc Performed By: #### L 100.0100, L500.2500 #### [facility] [address] [place], [address] GAP 5 Normal 5-15 [facility] Comment on above: Performed By: #### L 100.0100, L500.2500 #### [facility] [address] [place], [address] GFR/1.73 sq M.predicted among non-blacks MDRD (S/P/Bld) [Vol rate/Area] 46 mL/min/{1.73_m2} Low >60 [facility] Comment on above: Result Comment: Non- GFR Calc Performed By: #### L 100.0100, L500.2500 #### [facility] [address] [place], [address] Glucose [Mass/Vol] 96 mg/dL Normal 74-106 [facility] Comment on above: Performed By: #### L 100.0100, L500.2500 #### [facility] [address] [place], [address] Potassium [Moles/Vol] 4.6 mmol/L Normal 3.5-5.1 [facility] Comment on above: Result Comment: Mode rate Hemolysis, Result may be falsely increased. Performed By: #### L 100.0100, L500.2500 #### [facility] [address] [place], [address] Sodium [Moles/Vol] 136 mmol/L Normal 136-145 [facility] Comment on above: Performed By: #### L 100.0100, L500.2500 #### [facility] [address] [place], [address] Urea nitrogen [Mass/Vol] 27 mg/dL High 7-18 [facility] Comment on above: Performed By: #### L 100.0100, L500.2500 #### [facility] [address] [place], [address] Brain/Head without Contrasto n 05-14-2024 Brain/Head without Contrast [facility] Imaging Services [address] [place] [address] Brain/Head without Contrast MR#: [id number] Acct: [id number] Name: KAYLENE HAYNES LY Rep #: [id number] : 1935 F 88 From: Dheeraj Castillo MD PCP: Dr. Howard Zimmerman MD Status: [facility] Study: Brain/Head without Contrast Date of Exam: 04/19 01/08 Exam# [id number] Ordering Dr: Joel Mccarthy DO [id number] EXAM: CT HEAD WITHOUT INTRAVENOUS CONTRAST CLINICAL INDICATION: Tremor TECHNIQUE: Multiple axial images were obtained of the head without intravenous contrast. This CT exam was performed using one or more of the following dose reduction techniques: automated exposure control, adjustment of the mA and/or kV according to patient size, and/or use of iterative reconstruction technique. RADIATION DOSE: CTDIvol = 44.99 mGy, DLP = 815.79 mGy-cm COMPARISON: CT head without contrast 01/29/2024. FINDINGS: BRAIN AND EXTRA-AXIAL SPACES: Multiple asymmetric hypodensities in the white matter of both cerebral hemispheres are chronic white matter ischemic changes. No midline shift and no mass effects. No intra-axial or extra-axial bleeding. No communicating or noncommunicating hydrocephalus. Moderate cerebral atrophy accounting for the disproportionate dilatation of third and lateral ventricles. Normal cerebral aqueduct and fourth ventricle. Posterior fossa structures are unremarkable. Basal cisterns are patent. BONES/JOINTS: Unremarkable. No discrete lytic or blastic abnormalities. SINUSES: Unremarkable as visualized. Clear. MASTOID AIR CELLS: Unremarkable. Clear. ORBITS: Visualized globes, extraocular muscles, optic nerves and retrobulbar fat appear unremarkable. CT/Brain/Head without Contrast IMPRESSION: 1. No CT evidence of intracranial bleeding, acute ischemic infarct or acute intracranial abnormality. 2. Multiple asymmetric chronic white matter changes in both cerebral hemispheres. 3. No significant interval change when compared to 01/29/2024. Electronically Signed: Dheeraj Castillo MD at 12:11 EST , CC: Dr. Joel Mccarthy DO; Dr. Howard Zimmerman MD Vegetable Tier: Signed Normal [facility] CBC W/Diff, Automatedon 11-2 BITE CELL RARE [facility] Comment on above: Performed By: #### L 100.0100, L500.2500 #### [facility] [address] [place], [address] SCHISTOCYTES RARE [facility] Comment on above: Performed By: #### L 100.0100, L500.2500 #### [facility] [address] [place], [address] TARGET CELLS RARE [facility] Comment on above: Performed By: #### L 100.0100, L500.2500 #### [facility] [address] [place], [address] ACANTHOCYTE 1+ Normal [facility] Comment on above: Performed By: #### L 100.0100, L500.2500 #### [facility] [address] [place], [address] KRISTINE CELLS 1+ Normal [facility] Comment on above: Performed By: #### L 100.0100, L500.2500 #### [facility] [address] [place], [address] PLT EST ADEQUATE Normal ADEQ [facility] Comment on above: Performed By: #### L 100.0100, L500.2500 #### [facility] [address] [place], [address] ATYPICAL LYMPH 1+ Normal [facility] Comment on above: Performed By: #### L 100.0100, L500.2500 #### [facility] [address] [place], [address] Emergency Department Summary on 05-14-2024 Emergency Department Summary [facility] Medical Records Department [address] [place] [address] Emergency Department Summary 05/14/24 MR#: [id number] Acct: [id number] Name: KAYLENE HAYNES LY Rep #: [id number] : 1935 88 From: Joel Mccarthy DO PCP: Dr. Howard Zimmerman MD Status:DEP ER Location: ED HPI History of Present Illness Chief Complaint: Neuro S/Sx Informant: patient and SNF Onset/Context/Timing Onset: Today Context: Sudden Onset Timing: Continuous Quality: Tremors Location: Head Worsened by: Nothing Relieved by: Nothing Narrative Narrative: Patient presents with tremors that became worse today. Patient has a history of Parkinson's disease. Patient was found by detention staff with abnormal head movements. Staff reports patient was able to stop voluntarily. Staff also reports patient had recent unwitnessed fall. Patient was referred to the emergency department for concern for intracranial bleeding. Patient states she does not know why she is here. Patient denies any tremors. Patient denies any chest pain or shortness of breath. Patient admits to a mild sore throat. 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 Parkinson's disease dementia CKD (chronic kidney disease), stage III Anemia Falls Brain TIA Parkinson's disease Parotid tumor Lymphoma Parkinsons disease Premature ventricular contraction Hypertension Premature atrial contractions Hyperlipidemia History of atrial myxoma Nonrheumatic tricuspid valve regurgitation Nonrheumatic mitral valve regurgitation Nonrheumatic mitral (valve) prolapse Home Medications ???Medication ???Instructions ???Recorded ???Last Taken ???Type multivitamin 1 tab PO DAILY SUPPLEMENT 11/20/18 11/07/23 08:00 History carbidopa 25 mg-levodopa 100 mg 2 tab PO TID PARKINSONS 01/05/23 11/08/23 05:40 History tablet aspirin 81 mg chewable tablet 81 mg PO BREAKFAST HEART [employer] 1 06/29/23 11/07/23 08:00 Rx month #30 tabs VITAL TEARS 1 drp ophthalmic (eye) TID DRY EYES 09/08/23 11/08/23 05:40 History midodrine 5 mg tablet 10 mg (2 x 5 mg) PO TIDCM BLOOD 09/14/23 11/07/23 07:45 Rx PRESSURE #0 tabs acetaminophen 500 mg tablet 1,000 mg (2 x 500 mg) PO Q8 14 12/25/23 Unknown Rx days #0 tabs aspirin 81 mg chewable tablet 81 mg PO BID 30 days #0 tabs 12/25/23 Unknown Rx food supplemt, lactose-reduced 120 ml PO BID #0 mL 12/25/23 Unknown Rx 0.08 gram-1.5 kcal/mL oral liquid (Ensure Plus High Protein) Allergy/AdvReac Type Severity Reaction Status Date / Time Penicillins Allergy Rash Verified 05/14/24 10:04 risperidone (From Risperdal) AdvReac Severe Low blood Verified 05/14/24 10:04 pressure tramadol AdvReac Other Verified 05/14/24 10:04 Family History Father Heart disease CHF (congestive heart failure) Mother No problems noted. Surgical History History of facial surgery History of splenectomy History of laparoscopic cholecystectomy Social History household members: none housing: assisted living facility Smoking Status: Never smoker alcohol intake: current details: occasional substance use type: does not use ROS ROS ED Constitutional Constitutional ED: Denies chills or fever(s) Eyes Eyes: Denies blurry vision or change in vision ENT ENT ED: Reports sore throat; Denies rhinorrhea Cardiovascular Cardiovascular: Denies chest pain or palpitations Respiratory/Chest Respiratory/Chest: Denies cough or dyspnea Gastrointestinal Gastrointestinal: Denies nausea or vomiting Genitourinary Genitourinary ED: Denies dysuria or hematuria Musculoskeletal Musculoskeletal: Denies back pain or neck pain Integumentary Denies abscess or rash Neurologic Neurologic: Denies headache(s) or weakness Allergic/Immunologic Allergic/Immunologic ED: Denies mouth swelling or urticaria EXAM Physical Exam Const Vital Signs: 05/14/24 09:57 05/14/24 09:58 05/14/24 11:57 Temperature 97.4 F L Temperature Source Oral Oral Pulse Rate 68 66 Respiratory Rate 18 18 Blood Pressure 129/68 H 150/81 H Blood Pressure Mean 88 104 Pulse Ox 94 Oxygen Delivery Method Room Air Positive well nourished and well developed General Appearance ED: well developed and NAD HEENT Reports moist mucous membranes Neck supple and no JVD (more content not included)... Normal [facility] Urinalysis, Completeon 05-14 EPI,SQUAMOUS 0-5 SEEN Normal 5-10 [facility] Comment on above: Order Comment: CLEAN CATCH Performed By: #### L 400.0001 #### [facility] [address] [place], [place], [id number] WBC 0-5 SEEN Normal 0-5 [facility] Comment on above: Order Comment: CLEAN CATCH Performed By: #### L 400.0001 #### [facility] [address] [place], [address] BACTERIA 0 SEEN Normal None Seen [facility] Comment on above: Order Comment: CLEAN CATCH Performed By: #### L 400.0001 #### [facility] [address] [place], [address] Mucus Ql (Urine sed) 0 SEEN Normal [facility] Comment on above: Order Comment: CLEAN CATCH Performed By: #### L 400.0001 #### [facility] [address] [place], [address] RBC 0 SEEN Normal 0-5 [facility] Comment on above: Order Comment: CLEAN CATCH Performed By: #### L 400.0001 #### [facility] [address] [place], [address] CNOVon 04-21-2024 CNOV Office Visit (NRMDN) KAYLENE HAYNES ([id number]) 1935 F Date Time Provider Department 04/21/24 11:00 AM [facility] During your visit today, we recorded the following information about you: Weight 44.2 kg Selvin Felder MD 04/21/2024 7:56 PM Signed [facility] - FOLLOW UP EVALUATION Howard Zimmerman MD [address] [place] [address] [facility] [id number] I had the pleasure of seeing Ms. 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 Acetaminophen 500 mg cap Take by mouth. 1000 TID for pain (more content not included)... Normal 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 During your visit today, we recorded the following information about you: Maria Eugenia Virgen MA 04/21/2024 11:02 AM Signed Checked james patient not present at time of visit Allergies As of Date: 04/21/2024 Noted Allergy Reaction PENICILLINS 05/15/2005 2 - Rash RISPERIDONE 04/18/2024 16 - Unknown TRAMADOL 01/10/2007 8 - GI Upset Date Reviewed: 04/18/2024 Reviewed by: Maria Eugenia Virgen MA - Fully Assessed Reason for Visit: [...] [G47.01] 12/31/2017 Encounter Status:Closed by MARIA EUGENIA VIRGEN on 04/21/24 Normal [facility] Brain/Head without Contrasto n 01-29-2024 Brain/Head without Contrast [facility] Imaging Services [address] [place], [place] [address] Brain/Head without Contrast MR#: [id number] Acct: [id number] Name: KAYLENE HAYNES Rep #: [id number] : 1935 F 88 From: Filipe Nichols MD PCP: Dr. Odalis Saravia MD Status: REG ER Study: Brain/Head without Contrast Date of Exam: 01/16 09/08 Exam# [id number] Ordering Dr: Peter Goodwin DO [id number] STUDY: CT BRAIN WITHOUT CONTRAST REASON FOR EXAM: Female, 88 years old. Fall. RADIATION DOSAGE (If Supplied By Facility): CTDIvol = ( 47.06 ) mGy, DLP = ( 855.03 ) mGycm TECHNIQUE: Transaxial CT imaging of the brain was performed without administration of intravenous contrast material. CT scan performed according to ALARA principles. Automated exposure control used during exam. COMPARISON: Prior study dated: 11/29/2023 FINDINGS: PARENCHYMA: There is no acute bleed or infarct. There are stable chronic ischemic and atrophic changes. VENTRICLES: There is no hydrocephalus. MASTOID AIR CELLS AND PARANASAL SINUSES: The visualized paranasal sinuses are clear. The mastoid air cells are clear. BONES: There is no skull fracture. SOFT TISSUES: There is a right frontal scalp laceration. CT/Brain/Head without Contrast IMPRESSION: Stable chronic ischemic and atrophic changes. No acute intracranial abnormality. Right frontal scalp laceration. Electronically Signed: Filipe Nichols MD at 14:23 EDT , CC: Dr. Odalis Saravia MD; Dr. Peter Goodwin DO Vegetable Tier: Signed Normal [facility] Emergency Department Summary on 01-29-2024 Emergency Department Summary [facility] Medical Records Department [address] [place] [address] Emergency Department Summary 01/29/24 MR#: [id number] Acct: [id number] Name: KAYLENE HAYNES LY Rep #: [id number] : 1935 88 From: Peter Bojorquez PCP: Dr. Odalis Saravia MD Status:REG ER Location: ED HPI HPI - Fall History of Present Illness Chief Complaint: Fall Informant: patient and family Narrative Narrative: Sent in from [facility] fall off commode. Patient approximately 1 month postop right total hip repair from fall and fracture. She is not any blood thinners. Tetanus a year ago. Head injury laceration denies loss of consciousness. Pain in right hand. Abrasions to the bilateral thighs. No neck pain no chest pains no back pain. Patient ambulates with a walker per her grandson who is present. She has been at [facility] for last few months prior to her fall and hip fracture. She has had a left wrist fracture currently in a hard splint. 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 CKD (chronic kidney disease), stage III Falls Brain TIA Parkinson's disease Parotid tumor Lymphoma Parkinsons disease Premature ventricular contraction Hypertension Premature atrial contractions Hyperlipidemia History of atrial myxoma Nonrheumatic tricuspid valve regurgitation Nonrheumatic mitral valve regurgitation Nonrheumatic mitral (valve) prolapse Home Medications ???Medication ???Instructions ???Recorded ???Last Taken ???Type multivitamin 1 tab PO DAILY SUPPLEMENT 11/20/18 11/07/23 08:00 History carbidopa 25 mg-levodopa 100 mg 2 tab PO TID PARKINSONS 01/05/23 11/08/23 05:40 History tablet aspirin 81 mg chewable tablet 81 mg PO BREAKFA[facility] 1 06/29/23 11/07/23 08:00 Rx month #30 tabs VITAL TEARS 1 drp ophthalmic (eye) TID DRY EYES 09/08/23 11/08/23 05:40 History midodrine 5 mg tablet 10 mg (2 x 5 mg) PO TIDCM BLOOD 09/14/23 11/07/23 07:45 Rx PRESSURE #0 tabs acetaminophen 500 mg tablet 1,000 mg (2 x 500 mg) PO Q8 14 12/25/23 Unknown Rx days #0 tabs aspirin 81 mg chewable tablet 81 mg PO BID 30 days #0 tabs 12/25/23 Unknown Rx food supplemt, lactose-reduced 120 ml PO BID #0 mL 12/25/23 Unknown Rx 0.08 gram-1.5 kcal/mL oral liquid (Ensure Plus High Protein) Allergy/AdvReac Type Severity Reaction Status Date / Time Penicillins Allergy Rash Verified 01/29/24 12:58 risperidone (From Risperdal) AdvReac Severe Low blood Verified 01/29/24 12:58 pressure tramadol AdvReac Other Verified 01/29/24 12:58 Family History Father Heart disease CHF (congestive heart failure) Mother No problems noted. Surgical History History of facial surgery History of splenectomy History of laparoscopic cholecystectomy Social History household members: none housing: assisted living facility Smoking Status: Never smoker alcohol intake: current details: occasional substance use type: does not use ROS ROS ED Constitutional Constitutional ED: Denies chills, fever(s) or sweats Eyes Eyes: Denies change in vision ENT ENT ED: Denies dysphagia or sore throat Cardiovascular Cardiovascular: Denies chest pain, leg edema, palpitations or racing heartbeat Respiratory/Chest Respiratory/Chest: Denies cough, dyspnea or dyspnea on exertion Gastrointestinal Gastrointestinal: Denies abdominal pain, diarrhea, nausea or vomiting Genitourinary Genitourinary ED: Denies dysuria, hematuria or urinary frequency Musculoskeletal Musculoskeletal: Denies back pain, extremity pain or neck pain Integumentary Reports Abrasions and wounds Neurologic Neurologic: Denies headache(s), paresthesias or weakness EXAM Physical Exam Const Vital Signs: 01/29/24 12:51 01/29/24 12:55 01/29/24 14:51 Temperature 97.6 F L Temperature Source Temporal Pulse Rate 76 68 Respiratory Rate 20 H 15 Respiratory Effort Normal Non-Labored Respiratory Depth Normal Respiratory Pattern Normal Blood Pressure 108/78 151/98 H Blood Pressure Mean 88 115 Pulse Ox 96 95 Oxygen Delivery Method Room Air Room Air Room Air Positive well nourished and well developed Constitutional Narrative: GCS 15 General Appearance ED: well developed and NAD HEENT Reports moist mucous membranes HEENT Narrative: 3 cm laceration right mid forehead additional 2 cm laceration right lateral (more content not included)... Normal [facility] Femur Min 2 Viewson 01-29-20 Femur Min 2 Views [facility] Imaging Services [address] [place] [address] Femur Min 2 Views MR#: [id number] Acct: [id number] Name: KAYLENE HAYNES LY Rep #: [id number] : 1935 F 88 From: Olivier wayne MD PCP: Dr. Odalis Saravia MD Status: REG ER Study: Femur Min 2 Views Date of Exam: 01/29/24 Exam# [id number] Ordering Dr: Peter Goodwin DO [id number] STUDY: X-RAY - RIGHT FEMUR REASON FOR STUDY: Female, 88 years old. INJURY TECHNIQUE: 4 view(s) of the femur. COMPARISON: None. FINDINGS: The patient is status post right total hip replacement. There is good alignment. Normal visualized soft tissue structure. There are atherosclerotic vascular calcifications. RAD/Femur Min 2 Views IMPRESSION: Status post right total hip replacement. No acute abnormality is seen. Electronically Signed: Olivier Maradiaga MD at 14:32 EDT , CC: Dr. Odalis Saravia MD; Dr. Peter Goodwin DO Vegetable Tier: Signed Normal [facility] Femur Min 2 Views [facility] Imaging Services [address] [place] [address] Femur Min 2 Views MR#: [id number] Acct: [id number] Name: KAYLENE HAYNES Rep #: [id number] : 1935 F 88 From: Olivier wayne MD PCP: Dr. Odalis Saravia MD Status: REG ER Study: Femur Min 2 Views Date of Exam: 01/29/24 Exam# [id number] Ordering Dr: Peter Goodwin DO [id number] STUDY: X-RAY - LEFT FEMUR REASON FOR STUDY: Female, 88 years old. Pain following a fall. TECHNIQUE: 4 view(s) of the femur. COMPARISON: None. FINDINGS: Normal visualized femur. Normal visualized soft tissue structure. There are atherosclerotic vascular calcifications. RAD/Femur Min 2 Views IMPRESSION: No acute abnormality is seen. Electronically Signed: Olivier Maradiaga MD at 14:30 EDT , CC: Dr. Odalis Saravia MD; Dr. Peter Goodwin DO Vegetable Tier: Signed Normal [facility] Hand Min 3 Viewson 4 Hand Min 3 Views [facility] Imaging Services [address] [place] [address] Hand Min 3 Views MR#: [id number] Acct: [id number] Name: KAYLENE HAYNES Rep #: [id number] : 1935 F 88 From: Olivier wayne MD PCP: Dr. Odalis Saravia MD Status: REG ER Study: Hand Min 3 Views Date of Exam: 01/29/24 Exam# [id number] Ordering Dr: Peter Goodwin DO [id number] STUDY: X-RAY - RIGHT HAND REASON FOR EXAM: Female, 88 years old. Injury due to a fall. TECHNIQUE: 3 view(s) of the hand. COMPARISON: Comparison is made with prior study dated May 03, 2023. FINDINGS: Normal radiocarpal articulation. Normal distal radioulnar joint. Normal visualized carpal bones. Normal carpal articulations There is degenerative arthrosis of the carpometacarpal articulation of the thumb with lateral subluxation of the first metacarpus. Normal second through fifth carpometacarpal joints. Normal metacarpi. Normal metacarpophalangeal joint of the thumb. Normal interphalangeal joint of the thumb. Normal proximal and distal phalanges of the thumb. Normal metacarpophalangeal joints of the second through fifth fingers. There is diffuse articular joint space narrowing of the proximal and distal interphalangeal joints of the second through fifth fingers, but without erosive changes or periarticular soft tissue swelling. Normal phalanges of the second through fifth fingers. The soft tissue structures are unremarkable. RAD/Hand Min 3 Views IMPRESSION: Degenerative joint disease of the hand, as described above. Electronically Signed: Olivier Maradiaga MD at 14:31 EDT , CC: Dr. Odalis Saravia MD; Dr. Peter Goodwin DO Vegetable Tier: Signed Normal [facility] Spine Cervical without Contr ason 01-29-2024 Spine Cervical without Contras [facility] Imaging Services [address] [place] [address] Spine Cervical without Contras MR#: [id number] Acct: [id number] Name: KAYLENE HAYNES Rep #: [id number] : 1935 F 88 From: Filipe Nichols MD PCP: Dr. Odalis Saravia MD Status: REG ER Study: Spine Cervical without Contras Date of Exam: 0 01/29/24 Exam# [id number] Ordering Dr: Peter Goodwin DO [id number] STUDY: CT CERVICAL SPINE WITHOUT CONTRAST REASON FOR EXAM: Female, 88 years old. Fall RADIATION DOSAGE (If Supplied By Facility): CTDIvol = ( 13.21 ) mGy, DLP = ( 216.57 ) mGycm TECHNIQUE: High resolution transaxial imaging was performed without contrast material. Sagittal and coronal images were reconstructed. CT scan performed according to ALARA principles. Automated exposure control used during exam. COMPARISON: Prior study dated: 09/08/2023 FINDINGS: BONES: There is no fracture in the cervical spine. The dens is intact. The vertebral body heights are maintained. ALIGNMENT: There is no dislocation. There is straightening of the normal cervical lordosis which may be due to paraspinal muscle spasm or may be positional in nature. DISC SPACES: There are stable moderate to severe degenerative changes which are more pronounced in the lower cervical spine. LUNG APICES: The visualized lung apices are clear. SOFT TISSUES: The visualized paraspinal soft tissues are within normal limits. CT/Spine Cervical without Contras IMPRESSION: No fracture or dislocation in the cervical spine. Straightening of the normal cervical lordosis which may be due to paraspinal muscle spasm or may be positional in nature. Stable moderate to severe degenerative changes which are more pronounced in the lower cervical spine. Electronically Signed: Filipe Nichols MD at 14:26 EDT , CC: Dr. Odalis Saravia MD; Dr. Peter Goodwin DO Vegetable Tier: Signed Normal [facility] CBC-Complete Blood Cnt No Di ffon 12-26-2023 HCT Normal 37-47 [facility] Comment on above: Result Comment: Canc elled via OM: Order cancelled - Patient discharged Performed By: #### L 500.2500, L100.0100 #### [facility] [address] [place], [address] HGB Normal 12.0-15.0 [facility] Comment on above: Result Comment: Canc elled via OM: Order cancelled - Patient discharged Performed By: #### L 500.2500, L100.0100 #### [facility] [address] [place], [address] MCH Normal 27.0-32.0 [facility] Comment on above: Result Comment: Canc elled via OM: Order cancelled - Patient discharged Performed By: #### L 500.2500, L100.0100 #### [facility] [address] [place], [address] MCHC Normal 32-36 [facility] Comment on above: Result Comment: Canc elled via OM: Order cancelled - Patient discharged Performed By: #### L 500.2500, L100.0100 #### [facility] [address] [place], [address] MCV Normal 81-99 [facility] Comment on above: Result Comment: Canc elled via OM: Order cancelled - Patient discharged Performed By: #### L 500.2500, L100.0100 #### [facility] [address] [place], [address] PLT Normal 150-450 [facility] Comment on above: Result Comment: Canc elled via OM: Order cancelled - Patient discharged Performed By: #### L 500.2500, L100.0100 #### [facility] [address] [place], [address] RBC Normal 4.2-5.4 [facility] Comment on above: Result Comment: Canc elled via OM: Order cancelled - Patient discharged Performed By: #### L 500.2500, L100.0100 #### [facility] [address] [place], [address] RDW CV Normal 11.6-14.6 [facility] Comment on above: Result Comment: Canc elled via OM: Order cancelled - Patient discharged Performed By: #### L 500.2500, L100.0100 #### [facility] [address] [place], [address] RDW SD Normal 35.1-43.9 [facility] Comment on above: Result Comment: Canc elled via OM: Order cancelled - Patient discharged Performed By: #### L 500.2500, L100.0100 #### [facility] [address] [place], [address] WBC Normal 4.4-11.0 [facility] Comment on above: Result Comment: Canc elled via OM: Order cancelled - Patient discharged Performed By: #### L 500.2500, L100.0100 #### [facility] [address] [place], [address] Basic Metabolic Profile (BMP )on 12-25-2023 BUN/CRE 34.3 RATIO High 10-20 [facility] Comment on above: Performed By: #### L 500.2500, L100.0100 #### [facility] [address] [place], [address] CA,Total 8.2 mg/dL Low 8.5-10.1 [facility] Comment on above: Performed By: #### L 500.2500, L100.0100 #### [facility] [address] [place], [address] Chloride [Moles/Vol] 108 mmol/L High 98-107 [facility] Comment on above: Performed By: #### L 500.2500, L100.0100 #### [facility] [address] [place], [address] CO2 [Moles/Vol] 24.0 mmol/L Normal 21.0-32.0 [facility] Comment on above: Performed By: #### L 500.2500, L100.0100 #### [facility] [address] [place], [address] Creatinine [Mass/Vol] 1.05 mg/dL High 0.55-1.02 [facility] Comment on above: Result Comment: The validity of the calculated GFR GFRAA in patients over 70 years has not been determined. Clinical correlation is essential. Performed By: #### L 500.2500, L100.0100 #### [facility] [address] [place], [address] ECRCL 27.11 ml/min Normal [facility] Comment on above: Performed By: #### L 500.2500, L100.0100 #### [facility] [address] [place], [address] EST GFR - AA 64 mL/min Normal >60 [facility] Comment on above: Result Comment: Afri can Citizen Of [place] GFR Calc Performed By: #### L 500.2500, L100.0100 #### [facility] [address] [place], [address] GAP 5 Normal 5-15 [facility] Comment on above: Performed By: #### L 500.2500, L100.0100 #### [facility] [address] [place], [address] GFR/1.73 sq M.predicted among non-blacks MDRD (S/P/Bld) [Vol rate/Area] 53 mL/min/{1.73_m2} Low >60 [facility] Comment on above: Result Comment: Non- GFR Calc Performed By: #### L 500.2500, L100.0100 #### [facility] [address] [place], [address] Glucose [Mass/Vol] 105 mg/dL Normal 74-106 [facility] Comment on above: Result Comment: Fast ing Glucose result from 100 to 125 mg/dL suggests IMPAIRED HOMEOSTASIS per A.D.A. criteria. Performed By: #### L 500.2500, L100.0100 #### [facility] [address] [place], [address] Potassium [Moles/Vol] 4.5 mmol/L Normal 3.5-5.1 [facility] Comment on above: Performed By: #### L 500.2500, L100.0100 #### [facility] [address] [place], [address] Sodium [Moles/Vol] 137 mmol/L Normal 136-145 [facility] Comment on above: Performed By: #### L 500.2500, L100.0100 #### [facility] [address] [place], [address] Urea nitrogen [Mass/Vol] 36 mg/dL High 7-18 [facility] Comment on above: Performed By: #### L 500.2500, L100.0100 #### [facility] [address] [place], [address] CBC-Complete Blood Cnt No Di ffon 12-25-2023 Erythrocyte distribution width (RBC) [Ratio] 14.6 % Normal 11.6-14.6 [facility] Comment on above: Performed By: #### L 500.2500, L100.0100 #### [facility] [address] [place], [address] Hematocrit (Bld) [Volume fraction] 28.0 % Low 37-47 [facility] Comment on above: Performed By: #### L 500.2500, L100.0100 #### [facility] [address] [place], [address] Hemoglobin (Bld) [Mass/Vol] 9.1 g/dL Low 12.0-15.0 [facility] Comment on above: Performed By: #### L 500.2500, L100.0100 #### [facility] [address] [place], [address] MCH (RBC) [Entitic mass] 30.8 pg Normal 27.0-32.0 [facility] Comment on above: Performed By: #### L 500.2500, L100.0100 #### [facility] [address] [place], [address] MCHC (RBC) [Mass/Vol] 32.5 g/dL Normal 32-36 [facility] Comment on above: Performed By: #### L 500.2500, L100.0100 #### [facility] [address] [place], [address] MCV (RBC) [Entitic vol] 94.9 fL Normal 81-99 [facility] Comment on above: Performed By: #### L 500.2500, L100.0100 #### [facility] [address] [place], [address] Platelet mean volume (Bld) [Entitic vol] 9.8 fL Normal 6.2-12.0 [facility] Comment on above: Performed By: #### L 500.2500, L100.0100 #### [facility] [address] [place], [address] Platelets (Bld) [#/Vol] 248 10*3/uL Normal 150-450 [facility] Comment on above: Performed By: #### L 500.2500, L100.0100 #### [facility] [address] [place], [address] RBC (Bld) [#/Vol] 2.95 10*6/uL Low 4.2-5.4 [facility] Comment on above: Performed By: #### L 500.2500, L100.0100 #### [facility] [address] [place], [address] RDW SD 50.8 fl High 35.1-43.9 [facility] Comment on above: Performed By: #### L 500.2500, L100.0100 #### [facility] [address] [place], [address] WBC (Bld) [#/Vol] 16.8 10*3/uL High 4.4-11.0 [facility] Comment on above: Performed By: #### L 500.2500, L100.0100 #### [facility] [address] [place], [address] Hematocrit (Bld) [Volume fraction] 26.5 % Low 37-47 [facility] Comment on above: Performed By: #### L 500.2500, L100.0100 #### [facility] [address] [place], [address] Hemoglobin (Bld) [Mass/Vol] 8.6 g/dL Low 12.0-15.0 [facility] Comment on above: Performed By: #### L 500.2500, L100.0100 #### [facility] [address] [place], [address] MCH (RBC) [Entitic mass] 30.4 pg Normal 27.0-32.0 [facility] Comment on above: Performed By: #### L 500.2500, L100.0100 #### [place] [facility] [address] [place], [address] MCV (RBC) [Entitic vol] 93.6 fL Normal 81-99 [facility] Comment on above: Performed By: #### L 500.2500, L100.0100 #### [facility] [address] [place], [address] Platelet mean volume (Bld) [Entitic vol] 9.5 fL Normal 6.2-12.0 [facility] Comment on above: Performed By: #### L 500.2500, L100.0100 #### [facility] [address] [place], [address] Platelets (Bld) [#/Vol] 231 10*3/uL Normal 150-450 [facility] Comment on above: Performed By: #### L 500.2500, L100.0100 #### [facility] [address] [place], [address] RBC (Bld) [#/Vol] 2.83 10*6/uL Low 4.2-5.4 [facility] Comment on above: Performed By: #### L 500.2500, L100.0100 #### [facility] [address] [place], [address] RDW SD 50.1 fl High 35.1-43.9 [facility] Comment on above: Performed By: #### L 500.2500, L100.0100 #### [facility] [address] [place], [address] WBC (Bld) [#/Vol] 19.7 10*3/uL High 4.4-11.0 [facility] Comment on above: Performed By: #### L 500.2500, L100.0100 #### [facility] [address] [place], [address] COVID 19 AG RAPID (RN COLLEC T)on 12-25-2023 SARS-CoV-2 (COVID-19) RNA DEONTE+probe Ql (Unsp spec) *Negative results from patients with symptom onset beyond five days should be treated as presumptive and confirmed by a molecular assay if clinically necessary. Negative results should not be used as the sole basis for treatment or for patient management. SARS-CoV-2 Ag Resp Ql IA.rapid *Positive results do not differentiate between SARS-CoV and SARS-CoV-2. If differentiation of the specific SARS virus is desired an additional sample and an additional order is required. SARS-CoV-2 Ag Resp Ql IA.rapid * This test has not been FDA cleared or approved; the test has been authorized by FDA under an Emergency Use Authorization (EAU) for use by laboratories certified under CLIA that meet the requirements to perform moderate, high, or waived complexity tests. SARS-CoV-2 Ag Resp Ql IA.rapid Normal Reference Range: Negative SARS-CoV-2 (COVID 19) Negative RAPID METHOD [employer] COVID19 Ag Card Normal [facility] Comment on above: Performed By: #### M 100.505 ####[facility] [address] [place], [address] Ferritinon 12-25-2023 Ferritin [Mass/Vol] 90 ng/mL Normal 8-252 [facility] Comment on above: Order Comment: Has P atient had X-rays with Contrast this admission? NN Performed By: #### L 500.2500, L100.0100 #### [facility] [address] [place], [address] Folates, (Folic Acid)on FOLATES 28.70 ng/mL Normal 3.1-55.4 [facility] Comment on above: Order Comment: Has P atient had X-rays with Contrast this admission? NN Performed By: #### L 500.2500, L100.0100 #### [facility] [address] [place], [address] Iron+Iron Binding Capacityon 12-25-2023 Iron [Mass/Vol] 14 ug/dL Low 50-170 [facility] Comment on above: Order Comment: Has Oh ybarra had X-rays with Contrast this admission? NN Performed By: #### L 500.2500, L100.0100 #### [facility] [address] [place], [address] IRON SATURATION 5.0 Low 15.0-55.0 [facility] Comment on above: Order Comment: Has P amada had X-rays with Contrast this admission? NN Performed By: #### L 500.2500, L100.0100 #### [facility] [address] [place], [address] TIBC 279 ug/dL Normal 250-450 [facility] Comment on above: Order Comment: Has Oh ybarra had X-rays with Contrast this admission? NN Performed By: #### L 500.2500, L100.0100 #### [facility] [address] [place], [address] Basic Metabolic Profile (BMP )on 12-24-2023 BUN/CRE 22.4 RATIO High 10-20 [facility] Comment on above: Performed By: #### L 500.2500, L100.0500 #### [facility] [address] [place], [address] CA,Total 8.5 mg/dL Normal 8.5-10.1 [facility] Comment on above: Performed By: #### L 500.2500, L100.0500 #### [facility] [address] [place], [address] Chloride [Moles/Vol] 107 mmol/L Normal 98-107 [facility] Comment on above: Performed By: #### L 500.2500, L100.0500 #### [facility] [address] [place], [address] CO2 [Moles/Vol] 26.0 mmol/L Normal 21.0-32.0 [facility] Comment on above: Performed By: #### L 500.2500, L100.0500 #### [facility] [address] [place], [address] Creatinine [Mass/Vol] 1.34 mg/dL High 0.55-1.02 [facility] Comment on above: Result Comment: The validity of the calculated GFR GFRAA in patients over 70 years has not been determined. Clinical correlation is essential. Performed By: #### L 500.2500, L100.0500 #### [facility] [address] [place], [address] ECRCL 21.25 ml/min Normal [facility] Comment on above: Performed By: #### L 500.2500, L100.0500 #### [facility] [address] [place], [address] EST GFR - AA 48 mL/min Low >60 [facility] Comment on above: Result Comment: Afri can Citizen [place] GFR Calc Performed By: #### L 500.2500, L100.0500 #### [facility] [address] [place], [address] GAP 5 Normal 5-15 [facility] Comment on above: Performed By: #### L 500.2500, L100.0500 #### [facility] [address] [place], [address] GFR/1.73 sq M.predicted among non-blacks MDRD (S/P/Bld) [Vol rate/Area] 40 mL/min/{1.73_m2} Low >60 [facility] Comment on above: Result Comment: Non- GFR Calc Performed By: #### L 500.2500, L100.0500 #### [facility] [address] [place], [address] Glucose [Mass/Vol] 92 mg/dL Normal 74-106 [facility] Comment on above: Performed By: #### L 500.2500, L100.0500 #### [facility] [address] [place], [address] Potassium [Moles/Vol] 4.5 mmol/L Normal 3.5-5.1 [facility] Comment on above: Performed By: #### L 500.2500, L100.0500 #### [facility] [address] [place], [address] Sodium [Moles/Vol] 138 mmol/L Normal 136-145 [facility] Comment on above: Performed By: #### L 500.2500, L100.0500 #### [facility] [address] [place], [address] Urea nitrogen [Mass/Vol] 30 mg/dL High 7-18 [facility] Comment on above: Performed By: #### L 500.2500, L100.0500 #### [facility] [address] [place], [address] CBC W/Diff, Automatedon 07-0 PATH REV Reviewed Normal [facility] Comment on above: Result Comment: Leuk ocytosis. Clinical correlation necessary. Nilton Flaherty M.D. 12/24/23 AMENDED REPORT 12/24/23 1419 PATH REV previously reported as: October Performed By: #### L 400.0001 #### [facility] [address] [place], [address] CBC-Complete Blood Cnt No Di ffon 12-24-2023 Erythrocyte distribution width (RBC) [Ratio] 14.5 % Normal 11.6-14.6 [facility] Comment on above: Performed By: #### L 500.2500, L100.0500 #### [facility] [address] [place], [address] Hematocrit (Bld) [Volume fraction] 30.5 % Low 37-47 [facility] Comment on above: Performed By: #### L 500.2500, L100.0500 #### [facility] [address] [place], [address] Hemoglobin (Bld) [Mass/Vol] 9.8 g/dL Low 12.0-15.0 [facility] Comment on above: Performed By: #### L 500.2500, L100.0500 #### [facility] [address] [place], [address] MCH (RBC) [Entitic mass] 30.6 pg Normal 27.0-32.0 [facility] Comment on above: Performed By: #### L 500.2500, L100.0500 #### [facility] [address] [place], [address] MCHC (RBC) [Mass/Vol] 32.1 g/dL Normal 32-36 [facility] Comment on above: Performed By: #### L 500.2500, L100.0500 #### [facility] [address] [place], [address] MCV (RBC) [Entitic vol] 95.3 fL Normal 81-99 [facility] Comment on above: Performed By: #### L 500.2500, L100.0500 #### [facility] [address] [place], [address] Platelet mean volume (Bld) [Entitic vol] 9.9 fL Normal 6.2-12.0 [facility] Comment on above: Performed By: #### L 500.2500, L100.0500 #### [facility] [address] [place], [address] Platelets (Bld) [#/Vol] 289 10*3/uL Normal 150-450 [facility] Comment on above: Performed By: #### L 500.2500, L100.0500 #### [facility] [address] [place], [address] RBC (Bld) [#/Vol] 3.20 10*6/uL Low 4.2-5.4 [facility] Comment on above: Performed By: #### L 500.2500, L100.0500 #### [facility] [address] [place], [address] RDW SD 50.9 fl High 35.1-43.9 [facility] Comment on above: Performed By: #### L 500.2500, L100.0500 #### [facility] [address] [place], [address] WBC (Bld) [#/Vol] 21.1 10*3/uL High 4.4-11.0 [facility] Comment on above: Performed By: #### L 500.2500, L100.0500 #### [facility] [address] [place], [address] Vitamin B12on 12-24-2023 Cobalamin (Vitamin B12) [Mass/Vol] 1039 pg/mL High 211-911 [facility] Comment on above: Performed By: #### L 500.2500, L100.0100 #### [facility] [address] [place], [address] BCL-2 (add)on 12-23-2023 BCL-2 (add) -- ---- Patient Age/Sex Location Account Attending Physician ---- KAYLENE HAYNES 88/F MS3 [id number] Dr. Naresh Blanchard, DO ---- Specimen: [id number] Received: 12/27/23 Status: KORY Auguste Num: [id number] Spec Type: IMMUNO Subm Dr: Dr. Adrien Baez MD PHYSICIAN INSTITUTION [place] [address] SPECIMEN INFORMATION: Tissue Source: Right femoral head Clinical Info: Fracture of hip, right ,closed Specimen Number: [id number] CPT code: 76165,07766g80 METHODOLOGY: Deparaffinized sections of prefer/formalin-fixed tissue or PAP/DQ stained slides are incubated with monoclonal/polyclonal antibodies/oligonucleo tide probes. Localization is made via biotin free immunoperoxidase method. Appropriate controls are performed and reacted as expected. Results on target cell population are indicated in the following table: RESULTS: ANTIBODY / CLONE RESULT AE1-3 (AE1/AE3/PCK26) negative CK8 (29dgdiA17) negative CD3 (PS1) negative CD5 (SP10) negative CD20 (L26) positive CD43 (L60) negative CD45 (RP2/18) positive CD79a (11E3) positive CD10 (56C6) negative CD23 (1B12) negative BCL-2 (bcl-2/100/D5) positive BCL-6 (SX736K/A8) negative Cyclin D1/BCL-1 (SP4) negative Ki-67 (30-9) positive, very low, <1% These tests were developed and their performance characteristics determined by [facility]. They may not have been cleared or approved by the U.S. Food and Drug Administration. The FDA has determined that such clearance or approval is not necessary. The above immunohistochemical/du alISH markers are ordered and reviewed by the Pathologist. INTERPRETATION: Right femoral head, hemiarthroplasty: Atypical lymphoid aggregates. SJ/mr 12/31/2023 Signed (signature on file) Dr. Nilton Flaherty MD 12/31/23 1313 ---- Normal [facility] Comment on above: Performed By: #### L 500.2500, L100.0100 #### [facility] [address] [place], [address] Comprehensive Metabolic Prof [facility] 12-23-2023 Albumin [Mass/Vol] 3.2 g/dL Normal 3.2-5.0 [facility] Comment on above: Performed By: #### L 500.4050, L500.4100, L501.9520 ####[facility] [address] [place], [address] Albumin/Globulin [Mass ratio] 1.0 {ratio} Normal 0.9-2.4 [facility] Comment on above: Performed By: #### L 500.4050, L500.4100, L501.9520 ####[facility] [address] [place], [address] ALK P 159 U/L High 45-117 [facility] Comment on above: Performed By: #### L 500.4050, L500.4100, L501.9520 ####[facility] [address] [place], [address] ALT [Catalytic activity/Vol] 14 U/L Normal 13-56 [facility] Comment on above: Performed By: #### L 500.4050, L500.4100, L501.9520 ####[facility] [address] [place], [address] AST [Catalytic activity/Vol] 32 U/L Normal 15-37 [facility] Comment on above: Performed By: #### L 500.4050, L500.4100, L501.9520 ####[facility] [address] [place], [address] Bilirubin [Mass/Vol] 0.60 mg/dL Normal 0.20-1.00 [facility] Comment on above: Result Comment: For patients on eltrombopag therapy, use of Dimension [place] TBIL is not recommended. Performed By: #### L 500.4050, L500.4100, L501.9520 ####[facility] [address] [place], [address] BUN/CRE 24.1 RATIO High 10-20 [facility] Comment on above: Performed By: #### L 500.4050, L500.4100, L501.9520 ####[facility] [address] [place], [address] CA,Total 8.8 mg/dL Normal 8.5-10.1 [facility] Comment on above: Performed By: #### L 500.4050, L500.4100, L501.9520 ####[facility] [address] [place], [address] Chloride [Moles/Vol] 105 mmol/L Normal 98-107 [facility] Comment on above: Performed By: #### L 500.4050, L500.4100, L501.9520 ####[facility] [address] [place], [address] CO2 [Moles/Vol] 26.0 mmol/L Normal 21.0-32.0 [facility] Comment on above: Performed By: #### L 500.4050, L500.4100, L501.9520 ####[facility] [address] [place], [address] Creatinine [Mass/Vol] 1.08 mg/dL High 0.55-1.02 [facility] Comment on above: Result Comment: The validity of the calculated GFR GFRAA in patients over 70 years has not been determined. Clinical correlation is essential. Performed By: #### L 500.4050, L500.4100, L501.9520 ####[facility] [address] [place], [address] ECRCL 26.36 ml/min Normal [facility] Comment on above: Performed By: #### L 500.4050, L500.4100, L501.9520 ####[facility] [address] [place], [address] EST GFR - AA 62 mL/min Normal >60 [facility] Comment on above: Result Comment: Afri can Citizen [place] GFR Calc Performed By: #### L 500.4050, L500.4100, L501.9520 ####[facility] [address] [place], [address] GAP 6 Normal 5-15 [facility] Comment on above: Performed By: #### L 500.4050, L500.4100, L501.9520 ####[facility] [address] [place], [address] GFR/1.73 sq M.predicted among non-blacks MDRD (S/P/Bld) [Vol rate/Area] 51 mL/min/{1.73_m2} Low >60 [facility] Comment on above: Result Comment: Non- GFR Calc Performed By: #### L 500.4050, L500.4100, L501.9520 ####[facility] [address] [place], [address] Globulin (S) [Mass/Vol] 3.3 g/dL Normal 2.2-4.2 [facility] Comment on above: Performed By: #### L 500.4050, L500.4100, L501.9520 ####[facility] [address] [place], [address] Glucose [Mass/Vol] 103 mg/dL Normal 74-106 [facility] Comment on above: Result Comment: Fast ing Glucose result from 100 to 125 mg/dL suggests IMPAIRED HOMEOSTASIS per A.D.A. criteria. Performed By: #### L 500.4050, L500.4100, L501.9520 ####[facility] [address] [place], [address] Potassium [Moles/Vol] 4.3 mmol/L Normal 3.5-5.1 [facility] Comment on above: Performed By: #### L 500.4050, L500.4100, L501.9520 ####[facility] [address] [place], [address] Sodium [Moles/Vol] 137 mmol/L Normal 136-145 [facility] Comment on above: Performed By: #### L 500.4050, L500.4100, L501.9520 ####[facility] [address] [place], [address] T PROT 6.5 g/dL Normal 6.4-8.2 [facility] Comment on above: Performed By: #### L 500.4050, L500.4100, L501.9520 ####[facility] [address] [place], [address] Urea nitrogen [Mass/Vol] 26 mg/dL High 7-18 [facility] Comment on above: Performed By: #### L 500.4050, L500.4100, L501.9520 ####[facility] [address] [place], [address] Decalcification bone/plaqueo n 12-23-2023 Decalcification bone/plaque ---- Patient Age/Sex Location Account Attending Physician ---- KAYLENE HAYNES 88/F MS3 [id number] Dr. Naresh Blanchard DO ---- Specimen: [id number] Received: 12/24/23 Status: KORY Auguste Num: [id number] Spec Type: FEM HEAD Subm Dr: Dr. Adrien Baez MD HEADER OPERATION: Hemiarthroplasty, hip cemented PRE-OP DIAGNOSIS: Fracture of hip, right, closed TISSUE SUBMITTED: Right femoral head ---- MICROSCOPIC DIAGNOSIS Right hip bone and soft tissue, total hip replacement/resection: Femoral head and detached pieces of bone with focal area hemorrhage, clinically fractured hip. Atypical lymphoid aggregates. See comment. ALIYAH: 12/31/2023 COMMENT Immunohistochemistry ([id number]) supports the above diagnosis. If there is a high suspicion of lymphoma, biopsy of lymph node is suggested for definite diagnosis, if clinically indicated. Clinical correlation and appropriate follow up are necessary. MICROSCOPIC DESCRIPTION Slides are reviewed. GROSS DESCRIPTION Received is one container labeled with the patient's name and designated Right femoral head and tissue. The specimen consists of a castro femoral head measuring 4.0 x 4.5 x 3.0 cm. The articular surface is smooth. Resection margin is irregular and hemorrhagic. Also present in the specimen container are multiple detached pieces of bone measuring in aggregate 6.5 x 6.0 x 2.5 cm. No soft tissue is identified. Cook'S Assistant sections are submitted in three cassettes as follows: 1 and 2 - detached pieces of bone after decalcification, 3 - femoral head after decalcification. / ALIYAH/ 12/24/2023 TC:5 [facility]: [id number], [id number] ---- Patient Age/Sex Location Account Attending Physician ---- KAYLENE HAYNES 88/F MS3 [id number] Dr. Naresh Blanchard DO ---- Signed (signature on file) Dr. Nilton Flaherty MD 12/31/23 1257 ---- Normal [facility] Comment on above: Performed By: #### P DEC ####[facility] [address] [facility] [place], [place], [address] Hip Min 2 Views (Portable)on 12-23-2023 Hip Min 2 Views (Portable) [facility] Imaging Services [address] [place], [place] [address] Hip Min 2 Views (Portable) MR#: [id number] Acct: [id number] Name: KAYLENE HAYNES LY Rep #: [id number] : 1935 F 88 From: Memo Mccormack MD PCP: Dr. Odalis Saravia MD Status: ADM IN Study: Hip Min 2 Views (Portable) Date of Exam: 12/22 Exam# [id number] Ordering Dr: Adrien Baez MD [id number] STUDY: X-RAY - PELVIS AND RIGHT HIP REASON FOR EXAM: Female, 88 years old. Postop from hip replacement surgery TECHNIQUE: 3 views of the pelvis and hip. COMPARISON: Yesterday FINDINGS: Patient is postop from right hip replacement surgery. Components demonstrate anatomic alignment. No plain film evidence of postoperative complication. Normal postoperative soft tissue swelling and subcutaneous emphysema noted. 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 Diffuse vascular calcifications noted. RAD/Hip Min 2 Views (Portable) IMPRESSION: Replaced right hip joint demonstrates anatomic alignment, no plain film evidence of postoperative complication Electronically Signed: Jayden Mccormack MD at 11:36 EDT , CC: Dr. Odalis Saravia MD; Dr. Adrien Baez MD Vegetable Tier: Signed Normal [facility] Lipid Profileon 12-23-2023 Cholesterol [Mass/Vol] 229 mg/dL High 200 [facility] Comment on above: Result Comment: <200 mg/dL Desirable 200-240 mg/dL Borderline >240 mg/dL High Risk Performed By: #### L 500.4050, L500.4100, L501.9520 ####[facility] [address] [place], [address] Cholesterol in HDL [Mass/Vol] 67 mg/dL Normal [facility] Comment on above: Result Comment: The drugs N-Acetylcysteine and Metamizole may falsely depress this assay. Reference Range HDL <40 mg/dL Low HDL Cholesterol HDL >or= 60 mg/dL High HDL Cholesterol Performed By: #### L 500.4050, L500.4100, L501.9520 ####[facility] [address] [place], [address] Cholesterol in LDL [Mass/Vol] 143 mg/dL High 0-130 [facility] Comment on above: Performed By: #### L 500.4050, L500.4100, L501.9520 ####[facility] [address] [place], [address] Cholesterol in VLDL [Mass/Vol] 19 mg/dL Normal 5-40 [facility] Comment on above: Performed By: #### L 500.4050, L500.4100, L501.9520 ####[facility] [address] [place], [address] Triglyceride [Mass/Vol] 93 mg/dL Normal [facility] Comment on above: Result Comment: The drugs N-Acetylcysteine and Metamizole may falsely depress this assay. Serum Triglycerides Reference Interval Normal <150 mg/dL Borderline high 150 - 199 mg/dL High 200 - 499 mg/dL Very High > or = 500 mg/dL Performed By: #### L 500.4050, L500.4100, L501.9520 ####[facility] [address] [place], [address] MR/POSTOP.ANE 12-23-2023 MR/POSTOP.[facility] Medical Records Department [address] [place] [address] Anesthesia Postop Eval I 12/23/23 1041 MR#: [id number] Acct: [id number] Name: KAYLENE HAYNES LY Rep #: [id number] : 1935 88 From: Clarke Pyle MD PCP: Dr. Odalis Saravia MD Status:ADM IN Y Race: C Location: [address] Anesthesia: Postop Eval I Current Vital Signs Temperature: 97.2 F Pulse Rate: 92 Blood Pressure: 110/59 Respiratory Rate: 18 Pulse Ox: 93 Oxygen Delivery Method: Simple Mask (Oxygen is at 4 L/min) Assessment Airway patent: Yes Spontaneous unlabored respirations: Yes Mental status: Asleep (Arousable) nausea: No Vomiting: No Anesthesia Complication: No Fluid Hydration Crystalloid volume administer (ml): 1,000 Total IV fluid infused: 1,000 Progress Note Anesthesia document: Postop Eval 1 completed: Yes 12/23/23 1045 Date Clarke Pyle MD Cosigner Signature: Date CC: Signed Normal [facility] MR/GUOCUDWY6aw 12-23-2023 MR/POSTOPAN2 [facility] Medical Records Department [address] [place] [address] Anesthesia Postop Eval II 12/23/23 1124 MR#: [id number] Acct: [id number] Name: KAYLENE HAYNES LY Rep #: [id number] : 1935 88 From: Clarke Pyle MD PCP: Dr. Odalis Saravia MD Status:ADM IN Y Race: C Location: [facility] [place] Anesthesia Postop Eval I Sum Postop Eval Completion status Anesthesia document: Postop Eval 1 completed: Yes Anesthesia Postop Eval I Summary Anesthesia Postop Eval I Summary: Anesthesia Postop Eval I: Assessment Summary Airway patent Yes 12/23/23 10:45 Spontaneous unlabored Yes 12/23/23 10:45 respirations Mental status Asleep - Arousable 12/23/23 10:45 nausea No 12/23/23 10:45 Vomiting No 12/23/23 10:45 Anesthesia Postop Eval I: Fluid Summary Crystalloid volume administer 1,000 12/23/23 10:45 (ml) Colloids volume administered ( ml) Blood Product volume administered (ml) Total IV fluid infused 1,000 12/23/23 10:45 Anesthesia Postop Eval I: Summary Notes Anesthesia Complication No 12/23/23 10:45 Anesthesia Complication Comment: Post-operative progress note Anesthesia: Postop Eval II Evaluation Mental status: Calm and Asleep (Arousable) Pain Level: 1 nausea: No Vomiting: No Complications Anesthesia Complication: No 12/23/23 1125 Date Clarke Pyle MD Cosigner Signature: Date CC: Signed Normal [facility] Operative Reporton 4 Operative Report [facility] Medical Records Department [address] [place] [address] Operative Report 12/23/23 0948 MR#: [id number] Acct: [id number] Name: KAYLENE HAYNES LY Rep #: [id number] : 1935 88 From: Adrien Baez MD PCP: Dr. Odalis Saravia MD Status:ADM IN Location: [address] Problems Associated Problem List Diagnoses (1) Displaced fracture of right femoral neck: Operative Report Date of Procedure: 12/23/23 Preoperative diagnosis: Right hip displaced femoral neck fracture Postoperative diagnosis: Same Operation: Right hip cemented hemiarthroplasty Surgeon: Dr. Adrien Baez MD Print Traffic Manager: Lyudmila Leary PA-C EBL 150 Fluid in 700 Anesthesia: General Anesthesiologist; Dr. Pyle Special medications: IV [Ancef] 2 g, 1 g Tranexamic acid IV x 2 Indications for surgery : Patient is a (88) -year-old female that fell yesterday fracturing the involved hip. Appropriate informed consent was obtained and signed. Appropriate medical workup was performed preoperatively and patient was deemed safe for surgery by the anesthesia department baking assistantNANNETTE was utilized throughout the entire procedure. They were vital in helping with patient positioning, holding of retractors, exposing the tissues adequately for safe completion of the procedure including cutting of the bone, helping boom tender appropriate alignment and sizing of the components, implantation of the components, as well as wound closure, bandage application, and safe patient transfer. Without certified surgical first assistant, physician assistant secretary, surgical time would have been significantly increased, and surgical outcome would have been less optimal. Operative findings: Patient had displaced comminuted femoral neck fracture. We used a Jessica Accolade C stem size #5 cemented. Bipolar 45 mm femoral head with a +0 neck length. 2 batches of antibiotic tobramycin cement were utilized. this reproduced there anatomy nicely. Clinically good leg lengths were noted. Good hip stability through range of motion with no undue pistoning. Standard wound closure in layers, followed by vinayak, followed by Mepilex dressing Details of procedure: Patient was taken to the operating room and transferred to the operating table. Given appropriate anesthetic agent by that department. Patient was then rolled into a lateral decubitus position with the involved painful hip up in the air. Appropriate timeouts had been performed. Hip had been appropriately marked with my initials. Padded anterior and posterior position was utilized. Axillary roll placed. JENNIFER hose and SCDs on the nonoperative limb utilized throughout the procedure. Operative lower extremity was prepped padded and draped in the usual orthopedic sterile fashion for the procedure. I injected the pain relieving solution in the standard sterile technique of the soft tissues of the hip carefully. Incision was made curving over the tip of the greater trochanter posteriorly. Full thickness skin flaps are raised down on the fascia salvatore. Fascia salvatore was opened in length with our incision. Charnley self-retaining hip retractor was carefully placed by the surgeon. Leg was appropriately rotated by the assistant secretary. Retractor was used to lift the abductors anteriorly to visualize the piriformis tendon and external rotators. Piriformis tendon and external rotators released off the greater trochanter with the Bovie. Tagging suture was placed in each of these separately. We then split the tissue superior to the piriformis tendon through capsule and onto the pelvis. Acetabular labrum was preserved. Retractors were carefully placed around the femoral neck. Displaced unstable femoral neck fracture identified. cutting guide was utilized to map out the proposed cut approximately 1 fingerbreadth above the lesser trochanter. This femoral neck cut was carried out with a saw. Fractured femoral head removed from the acetabulum and measured and inspected. Appropriate trial was utilized. A proximal femoral elevator utilized. We used a sharp awl entering down inside the bone of the proximal femur. Utilized the henri cutting osteotome the proximal lateral greater trochanteric region. The fragment removed. Broaching was then done from the smallest broach, upto the appropriate size. Good stability was confirmed. We then trialed the construct with a standard neck length and appropriate sized femoral head. We were happy with the construct. Good stability to flexion, rotation. At this point trials removed. 2 full batches of bone cement were mixed. 2 sponges were placed in the acetabulum we prepared the canal with brushing. Cement restrictor was placed down to the appropriate depth. It was thoroughly irrigated clean and dry. When the cement was as the appropriate texture, we pressurized cement down in the femoral canal. The appropriate si (more content not included)... Normal [facility] Thyroid Stim Hormone (TSH)on 12-23-2023 TSH 2.47 uIU/mL Normal 0.358-3.74 [facility] Comment on above: Performed By: #### L 500.4050, L500.4100, L501.9520 ####[facility] [address] [place], [address] Urinalysis, Completeon 12-22 BACTERIA 0 SEEN Normal None Seen [facility] Comment on above: Order Comment: CLEAN CATCH Performed By: #### L 500.2500, L100.0100 #### [facility] Laboratory [address] [place], [address] EPI,SQUAMOUS 0 SEEN Normal 5-10 [facility] Comment on above: Order Comment: CLEAN CATCH Performed By: #### L 500.2500, L100.0100 #### [facility] [address] [place], [address] Mucus Ql (Urine sed) 0 SEEN Normal [facility] Comment on above: Order Comment: CLEAN CATCH Performed By: #### L 500.2500, L100.0100 #### [facility] [address] [place], [address] RBC 0 SEEN Normal 0-5 [facility] Comment on above: Order Comment: CLEAN CATCH Performed By: #### L 500.2500, L100.0100 #### [facility] [address] [place], [address] WBC 0 SEEN Normal 0-5 [facility] Comment on above: Order Comment: CLEAN CATCH Performed By: #### L 500.2500, L100.0100 #### [facility] [address] [place], [place], [address] 12 Lead EKGon 12-22-2023 12 Lead EKG [facility] Cardiovascular Services [address] [place] [address] 12 Lead EKG 12/22/23 2222 MR#: [id number] Acct: [id number] Name: KAYLENE HAYNES Rep #: [id number] : 1935 88 From: Eric Shearer MD Attending Dr: Dr. Naresh Blanchard DO Status : ADM IN Ordering Dr: Ethan Kim DO Date: 12/22/23 Location: [facility] Sex: F C Admitted: 12/22/23 Test Reason : Pre-Op Blood Pressure : / mmHG Vent. Rate : 087 BPM Atrial Rate : 087 BPM P-R Int : 184 ms QRS Dur : 082 ms QT Int : 370 ms P-R-T Axes : 072 090 016 degrees QTc Int : 445 ms Sinus rhythm with Premature atrial complexes Rightward axis Borderline ECG When compared with ECG of 29-NOV-2023 14:42, No significant change was found Confirmed by Eric Shearer ([id number]), advertising editor LILIAN VILLEGAS ([id number]) on 12/25/2023 7:51:32 AM Referred By: Kim Confirmed By:Eric Shearer 12/25/23 0752 Date Eric Shearer MD CC: Dr. Naresh Blanchard DO; Dr. Ethan Kim DO; Dr. Odalis Saravia MD Signed Normal [facility] Basic Metabolic Profile (BMP )on 12-22-2023 BUN/CRE 22.8 RATIO High 10-20 [facility] Comment on above: Performed By: #### L 400.0001 #### [facility] [address] [place], [address] CA,Total 8.7 mg/dL Normal 8.5-10.1 [facility] Comment on above: Performed By: #### L 400.0001 #### [facility] [address] [place], [address] Chloride [Moles/Vol] 103 mmol/L Normal 98-107 [facility] Comment on above: Performed By: #### L 400.0001 #### [facility] [address] [place], [address] CO2 [Moles/Vol] 26.0 mmol/L Normal 21.0-32.0 [facility] Comment on above: Performed By: #### L 400.0001 #### [facility] [address] [place], [address] Creatinine [Mass/Vol] 1.27 mg/dL High 0.55-1.02 [facility] Comment on above: Result Comment: The validity of the calculated GFR GFRAA in patients over 70 years has not been determined. Clinical correlation is essential. Performed By: #### L 400.0001 #### [facility] [address] [place], [address] ECRCL 22.42 ml/min Normal [facility] Comment on above: Performed By: #### L 400.0001 #### [facility] [address] [place], [address] EST GFR - AA 51 mL/min Low >60 [facility] Comment on above: Result Comment: Afri can Citizen [place] GFR Calc Performed By: #### L 400.0001 #### [facility] [address] [place], [address] GAP 9 Normal 5-15 [facility] Comment on above: Performed By: #### L 400.0001 #### [facility] [address] [place], [address] GFR/1.73 sq M.predicted among non-blacks MDRD (S/P/Bld) [Vol rate/Area] 42 mL/min/{1.73_m2} Low >60 [facility] Comment on above: Result Comment: Non- GFR Calc Performed By: #### L 400.0001 #### [facility] [address] [place], [address] Glucose [Mass/Vol] 92 mg/dL Normal 74-106 [facility] Comment on above: Performed By: #### L 400.0001 #### [facility] [address] [place], [address] Potassium [Moles/Vol] 4.0 mmol/L Normal 3.5-5.1 [facility] Comment on above: Performed By: #### L 400.0001 #### [facility] [address] [place], [address] Sodium [Moles/Vol] 138 mmol/L Normal 136-145 [facility] Comment on above: Performed By: #### L 400.0001 #### [facility] [address] [place], [address] Urea nitrogen [Mass/Vol] 29 mg/dL High 7-18 [facility] Comment on above: Performed By: #### L 400.0001 #### [facility] [address] [place], [address] CBC W/Diff, Automatedon 07-0 SMEAR COMMENT SCANNED Normal [facility] Comment on above: Result Comment: LYMP HOCYTOSIS NOTED Performed By: #### L 400.0001 #### [facility] [address] [place], [address] Chest 1 View (Portable)on Chest 1 View (Portable) [facility] Imaging Services [address] [place] [address] Chest 1 View (Portable) MR#: [id number] Acct: [id number] Name: KAYLENE HAYNES #: [id number] : 1935 F 88 From: Erick Kinney MD PCP: Dr. Odalis Saravia MD Status: ADM IN Study: Chest 1 View (Portable) Date of Exam: 12/22/23 Exam# [id number] Ordering Dr: Umesh Velázquez [place] [id number] EXAM: XR CHEST, 1 VIEW CLINICAL INDICATION: pre-op for hip fracture TECHNIQUE: Frontal view of the chest. COMPARISON: 11/08/2023 FINDINGS: LUNGS AND PLEURAL SPACES: Unremarkable. No consolidation or edema. No pneumothorax. No effusion. HEART: Unremarkable. Cardiac silhouette not enlarged. MEDIASTINUM: Central airways and mediastinal contour are unremarkable. BONES/JOINTS: There is a fracture of the proximal right humerus. SOFT TISSUES: Unremarkable. RAD/Chest 1 View (Portable) IMPRESSION: 1. No acute pulmonary abnormality. 2. Old fracture of the proximal right humerus. Electronically Signed: Erick Kinney MD at 19:39 EDT , CC: Dr. Odalis Saravia MD; Dr. Umesh Velázquez MD Vegetable Tier: Signed Normal [facility] Emergency Department Summary on 12-22-2023 Emergency Department Summary [facility] Medical Records Department [address] [place] [id number] Emergency Department Summary 12/22/23 MR#: [id number] Acct: [id number] Name: KAYLENE HAYNES LY Rep #: [id number] : 1935 88 From: Umesh Velázquez MD PCP: Dr. Odalis Saravia MD Status:ADM IN [id number]PI - Fall History of Present Illness Chief Complaint: Lower Extremity Injury Informant: patient Occured/Mechanism Occurred: Today Mechanism/Context: Yes same level fall Usually ambulates: Without assistance Pain/Injury Pain Location: lower extremity Quality of Pain: Sharp Current Severity: Mild Maximum Severity: Moderate Associated Symptoms Associated Symptoms: Positive for Inability to ambulate; Negative for Parasthesias, Weakness, Loss of function, Loss of consciousness or Amnesia Narrative Narrative: 88-year-old female resident at [facility]. Has a history of Parkinson's, chronic kidney disease, TIA and anemia. Some change from of her pocket she went to reach for it fell injuring her right hip. She said if she is remaining still the pain is not too bad if she goes to move the hip she has significant pain. Denies hitting her head. No LOC. No head injury. She is not on any blood thinners. Denies any other complaints. No recent illness. 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 Falls Parkinson's disease CKD (chronic kidney disease), stage III Anemia Brain TIA Parotid tumor Lymphoma Parkinsons disease Premature ventricular contraction Hypertension Premature atrial contractions Hyperlipidemia History of atrial myxoma Nonrheumatic tricuspid valve regurgitation Nonrheumatic mitral valve regurgitation Nonrheumatic mitral (valve) prolapse Home Medications ???Medication ???Instructions ???Recorded ???Last Taken ???Type multivitamin 1 tab PO DAILY SUPPLEMENT 11/20/18 11/07/23 08:00 History carbidopa 25 mg-levodopa 100 mg 2 tab PO TID PARKINSONS 01/05/23 11/08/23 05:40 History tablet aspirin 81 mg chewable tablet 81 mg PO [facility] 1 06/29/23 11/07/23 08:00 Rx month #30 tabs VITAL TEARS 1 drp ophthalmic (eye) TID DRY EYES 09/08/23 11/08/23 05:40 History midodrine 5 mg tablet 10 mg (2 x 5 mg) PO TIDCM BLOOD 09/14/23 11/07/23 07:45 Rx PRESSURE #0 tabs acetaminophen 325 mg tablet 650 mg PO Q8 PRN fever or pain 12/22/23 Unknown History Allergy/AdvReac Type Severity Reaction Status Date / Time Penicillins Allergy Rash Verified 12/22/23 17:58 risperidone (From Risperdal) AdvReac Severe Low blood Verified 12/22/23 17:58 pressure tramadol AdvReac Other Verified 12/22/23 17:58 Family History Father Heart disease CHF (congestive heart failure) Mother No problems noted. Surgical History History of facial surgery History of splenectomy History of laparoscopic cholecystectomy Social History household members: none housing: assisted living facility Smoking Status: Never smoker alcohol intake: current details: occasional substance use type: does not use ROS ROS ED ROS Narrative Denies recent illness. Review of Systems ROS Unobtainable: Denies due to encephalopathy Constitutional Constitutional ED: Denies chills Eyes Eyes: Denies blurry vision ENT ENT ED: Denies ear pain Cardiovascular Cardiovascular: Denies chest pain Respiratory/Chest Respiratory/Chest: Denies cough Gastrointestinal Gastrointestinal: Denies abdominal pain Musculoskeletal Musculoskeletal: Denies arthralgias Integumentary Denies abscess Neurologic Neurologic: Denies headache(s) Psychiatric Psychiatric: Denies anxiety Endocrine Endocrinology: Denies polydipsia Hematologic/Lymphatic Hematologic/Lymphatic: Denies easy bleeding Allergic/Immunologic Allergic/Immunologic ED: Denies mouth swelling, tongue swelling or urticaria EXAM Physical Exam Narrative Exam Narrative: 88-year-old female vital signs stable afebrile. She is sitting upright in bed. She is position lying more in her left hip. Myself and the nurse are present in the room. H EENT exam pupils round react light. There is no trauma to her face or scalp. Nontender. Neck nontender. Lungs clear. Heart regular rhythm rate about 75 no murmur. Chest wall and ribs nontender. Abdomen soft nontender. Pelvic girdle is intact. She is holding her right hip flex. She does not want to flex at her extended due to pain. Distal femur, knee, right lower leg ankle and foot are nontender. She has a dressing on her proximal lateral (more content not included)... Normal [facility] H AND P Exam - [facility] 12-22-2023 H&P Exam - Hospitalist [facility] Medical Records Department [address] [place] [address] H P Exam - Hospitalist 12/22/231913 MR#: [id number] Acct: [id number] Name: KAYLENE HAYNES Rep #: [id number] : 1935 88 From: Ethan Kim DO PCP: Dr. Odalis Saravia MD Status:ADM IN Location: [facility] DJ375-7 [facility] General Date of Admission: 12/22/23 Date of Service: 12/22/23 Chief Complaint: Right Hip Pain after Fall. HPI Narrative KAYLENE HAYNES, is a 88 F with a past medical history of hyperlipidemia, Parkinson's disease; with underlying dementia, history of TIA, chronic orthostasis; on midodrine, CKD; stage III, history of splenectomy, chronic normochromic normocytic anemia, history of parotid tumor, history of lymphoma; followed by Dr. Brooks of [facility] oncology, history of atrial myxoma; s/p excision and Left pericardial patch (2000), history of nonrheumatic tricuspid valve regurgitation; frequent PVCs, history of nonrheumatic mitral valve regurgitation and prolapse; with LVEF 70% (June 2023), listed allergy to PCN (rash), history of vitamin B12 deficiency, history of laparoscopic cholecystectomy, chronic debility, history of adult failure to thrive, GERD, osteoarthritis and recent admission here in October 2023 with Right humeral fracture after mechanical fall while trying to mobilize with a walker requiring subsequent rehabilitation who re-presents to [facility] ER complaining of persistent Right hip pain after fall. Ms. Haynes currently resides at [facility] and she explains that approximately 1 hour prior to admission some change fell out of her pocket and when she went to reach for it on the ground she felt onto her Right hip when trying to stand back up with subsequent severe pain in the Right hip and inability to mobilize so EMS was activated. She denies loss of consciousness or significant head trauma with her fall. She takes baby aspirin daily and no other antiplatelet or anticoagulant agents. She denies associated fever, chills, nausea, vomiting, diarrhea, constipation, paresthesias, chest pain with activity or other recent illness. I spoke with the patient's son at the bedside in the ER and he helped to augment the history and I answered his questions to the best of my ability as she is deemed to have no absolute contraindications to medically necessary medium- risk orthopedic surgery. In the ER she was noted to have x-ray evidence of Right hip fracture likely due to to chronic disequilibrium related to Parkinson's disease in the setting of known chronic orthostasis; on midodrine with a history of a recent fall with right humeral fracture in October 2023 and she was then admitted to the general medical floor for ongoing care for stay that is expected to extend beyond 2 midnights. 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 CKD (chronic kidney disease), stage III Anemia Falls Brain TIA Parkinson's disease Parotid tumor Lymphoma Parkinsons disease Premature ventricular contraction Hypertension Premature atrial contractions Hyperlipidemia History of atrial myxoma Nonrheumatic tricuspid valve regurgitation Nonrheumatic mitral valve regurgitation Nonrheumatic mitral (valve) prolapse Home Medications ???Medication ???Instructions ???Recorded ???Last Taken ???Type multivitamin 1 tab PO DAILY SUPPLEMENT 11/20/18 11/07/23 08:00 History carbidopa 25 mg-levodopa 100 mg 2 tab PO TID PARKINSONS 01/05/23 11/08/23 05:40 History tablet aspirin 81 mg chewable tablet 81 mg PO [facility] 1 06/29/23 11/07/23 08:00 Rx month #30 tabs VITAL TEARS 1 drp ophthalmic (eye) TID DRY EYES 09/08/23 11/08/23 05:40 History midodrine 5 mg tablet 10 mg (2 x 5 mg) PO TIDCM BLOOD 09/14/23 11/07/23 07:45 Rx PRESSURE #0 tabs acetaminophen 325 mg tablet 650 mg PO Q8 PRN fever or pain 12/22/23 Unknown History Allergy/AdvReac Type Severity Reaction Status Date / Time Penicillins Allergy Rash Verified 12/22/23 17:58 risperidone (From Risperdal) AdvReac Severe Low blood Verified 12/22/23 17:58 pressure tramadol AdvReac Other Verified 12/22/23 17:58 Family History Father Heart disease CHF (congestive heart failure) Mother No problems noted. Surgical History History of facial surgery History of splenectomy History of laparoscopic cholecystectomy Social History household members: none housing: assisted living facility Smoking Status: Never smoker alcohol intake: current details: occasional substance use type: does not use ROS ROS Narrati (more content not included)... Normal [facility] HIP, UNI W/ Pelvis 2-3 Views on 12-22-2023 HIP, UNI W/ Pelvis 2-3 Views [facility] Imaging Services [address] [place], [place] [address] HIP, UNI W/ Pelvis 2-3 Views MR#: [id number] Acct: [id number] Name: KAYLENE HAYNES Rep #: [id number] : 1935 F 88 From: Erick Kinney MD PCP: Dr. Odalis Saravia MD Status: ADM IN Study: HIP, UNI W/ Pelvis 2-3 Views Date of Exam: 12/09 Exam# [id number] Ordering Dr: Umesh Velázquez MD [id number] EXAM: XR RIGHT HIP WITH PELVIS WHEN PERFORMED, 2 OR 3 VIEWS CLINICAL INDICATION: fall TECHNIQUE: Two or three views of the right hip with pelvis when performed. COMPARISON: No relevant prior studies available. FINDINGS: BONES/JOINTS: There is a fracture of the right femoral neck. No destructive or sclerotic lesions. Note that overlapping bowel shadows may however obscure fine detail. Sacroiliac joint is unremarkable. No widening of the pubic symphysis. The articular structures are unremarkable. SOFT TISSUES: Unremarkable. No soft tissue swelling or gas. RAD/HIP, UNI W/ Pelvis 2-3 Views IMPRESSION: Fracture of the right femoral neck. Electronically Signed: Erick Kinney MD at 19:41 EDT , CC: Dr. Odalis Saravia MD; Dr. Umesh Velázquez MD Vegetable Tier: Signed Normal [facility] Magnesiumon 12-22-2023 Magnesium [Mass/Vol] 2.0 mg/dL Normal 1.6-2.6 [facility] Comment on above: Performed By: #### L 500.2500, L100.0100 #### [facility] [address] [place], [address] Phosphoruson 12-22-2023 Phosphate [Mass/Vol] 4.1 mg/dL Normal 2.5-4.9 [facility] Comment on above: Performed By: #### L 500.2500, L100.0100 #### [facility] [address] [place], [address] Prothrombin Time w/INRon INR Coag (PPP) [Relative time] 1.0 {INR} Normal [facility] Comment on above: Performed By: #### L 400.0001 #### [facility] [address] [place], [address] PT Coag (PPP) [Time] 13.3 s Normal 11.7-14.9 [facility] Comment on above: Performed By: #### L 400.0001 #### [facility] [address] [place], [address] Type AND Screenon 12-22-2023 ABO and Rh group Nom (Bld) Blood group A Rh(D) positive Normal [facility] Comment on above: Order Comment: CLEAN CATCH Performed By: #### L 400.0001 #### [facility] [address] [place], [address] Basic Metabolic Profile (BMP )on 12-06-2023 BUN Normal 7-18 [facility] Comment on above: Result Comment: Canc elled via OM: Order cancelled - Patient discharged Performed By: #### L 500.2500, L100.0100 #### [facility] [address] [place], [address] BUN/CRE Normal 10-20 [facility] Comment on above: Result Comment: Canc elled via OM: Order cancelled - Patient discharged Performed By: #### L 500.2500, L100.0100 #### [facility] [address] [place], [address] CA,Total Normal 8.5-10.1 [facility] Comment on above: Result Comment: Canc elled via OM: Order cancelled - Patient discharged Performed By: #### L 500.2500, L100.0100 #### [facility] [address] [place], [address] CL Normal 98-107 [facility] Comment on above: Result Comment: Canc elled via OM: Order cancelled - Patient discharged Performed By: #### L 500.2500, L100.0100 #### [facility] [address] [place], [address] CO2 Normal 21.0-32.0 [facility] Comment on above: Result Comment: Canc elled via OM: Order cancelled - Patient discharged Performed By: #### L 500.2500, L100.0100 #### [facility] [address] [place], [address] CREAT,SERUM Normal 0.55-1.02 [facility] Comment on above: Result Comment: Canc elled via OM: Order cancelled - Patient discharged Performed By: #### L 500.2500, L100.0100 #### [facility] [address] [place], [address] EST GFR Normal >60 [facility] Comment on above: Result Comment: Canc elled via OM: Order cancelled - Patient discharged Performed By: #### L 500.2500, L100.0100 #### [facility] [address] [place], [address] EST GFR - AA Normal >60 [facility] Comment on above: Result Comment: Canc elled via OM: Order cancelled - Patient discharged Performed By: #### L 500.2500, L100.0100 #### [facility] [address] [place], [address] GAP Normal 5-15 [facility] Comment on above: Result Comment: Canc elled via OM: Order cancelled - Patient discharged Performed By: #### L 500.2500, L100.0100 #### [facility] [address] [place], [address] GLU Normal 74-106 [facility] Comment on above: Result Comment: Canc elled via OM: Order cancelled - Patient discharged Performed By: #### L 500.2500, L100.0100 #### [facility] [address] [place], [address] Potassium Normal 3.5-5.1 [facility] Comment on above: Result Comment: Canc elled via OM: Order cancelled - Patient discharged Performed By: #### L 500.2500, L100.0100 #### [facility] [address] [place], [address] Basic Metabolic Profile (BMP) Normal 136-145 [facility] Comment on above: Result Comment: Canc elled via OM: Order cancelled - Patient discharged Performed By: #### L 500.2500, L100.0100 #### [facility] [address] [place], [address] CBC W/Diff, Automatedon 06-2 0-4 Absolute Neut Normal 2.0-7.7 [facility] Comment on above: Result Comment: Canc elled via OM: Order cancelled - Patient discharged Performed By: #### L 500.2500, L100.0100 #### [facility] [address] [place], [address] HCT Normal 37-47 [facility] Comment on above: Result Comment: Canc elled via OM: Order cancelled - Patient discharged Performed By: #### L 500.2500, L100.0100 #### [facility] [address] [place], [address] HGB Normal 12.0-15.0 [facility] Comment on above: Result Comment: Canc elled via OM: Order cancelled - Patient discharged Performed By: #### L 500.2500, L100.0100 #### [facility] [address] [place], [address] MCH Normal 27.0-32.0 [facility] Comment on above: Result Comment: Canc elled via OM: Order cancelled - Patient discharged Performed By: #### L 500.2500, L100.0100 #### [facility] [address] [place], [address] MCHC Normal 32-36 [facility] Comment on above: Result Comment: Canc elled via OM: Order cancelled - Patient discharged Performed By: #### L 500.2500, L100.0100 #### [facility] [address] [place], [address] MCV Normal 81-99 [facility] Comment on above: Result Comment: Canc elled via OM: Order cancelled - Patient discharged Performed By: #### L 500.2500, L100.0100 #### [facility] [address] [place], [address] NEUT% Normal 47-70 [facility] Comment on above: Result Comment: Canc elled via OM: Order cancelled - Patient discharged Performed By: #### L 500.2500, L100.0100 #### [facility] [address] [place], [address] PLT Normal 150-450 [facility] Comment on above: Result Comment: Canc elled via OM: Order cancelled - Patient discharged Performed By: #### L 500.2500, L100.0100 #### [facility] [address] [place], [address] RBC Normal 4.2-5.4 [facility] Comment on above: Result Comment: Canc elled via OM: Order cancelled - Patient discharged Performed By: #### L 500.2500, L100.0100 #### [facility] [address] [place], [address] RDW CV Normal 11.6-14.6 [facility] Comment on above: Result Comment: Canc elled via OM: Order cancelled - Patient discharged Performed By: #### L 500.2500, L100.0100 #### [facility] [address] [place], [address] RDW SD Normal 35.1-43.9 [facility] Comment on above: Result Comment: Canc elled via OM: Order cancelled - Patient discharged Performed By: #### L 500.2500, L100.0100 #### [facility] [address] [place], [address] WBC Normal 4.4-11.0 [facility] Comment on above: Result Comment: Canc elled via OM: Order cancelled - Patient discharged Performed By: #### L 500.2500, L100.0100 #### [facility] [address] [place], [address] 12 Lead EKGon 11-29-2023 12 Lead EKG [facility] Cardiovascular Services [address] [place] [address] 12 Lead EKG 11/29/23 1442 MR#: [id number] Acct: [id number] Name: KAYLENE HAYNES LY Rep #: [id number] : 1935 88 From: Tiago Vigil MD Attending Dr: Status: DEP ER Ordering Dr: Bart Bhandari Date: 11/29/23 Location: ED Sex: F C Admitted: Test Reason : FALL Blood Pressure : / mmHG Vent. Rate : 093 BPM Atrial Rate : 093 BPM P-R Int : 192 ms QRS Dur : 082 ms QT Int : 376 ms P-R-T Axes : 077 085 005 degrees QTc Int : 467 ms Sinus rhythm with Premature supraventricular complexes Otherwise normal ECG Confirmed by YARITZA MASON, TIAGO ([id number]), advertising editor RAJ WOLFF ([id number]) on 12/03/2023 9:30:29 AM Referred By: Confirmed By:TIAGO VIGIL MD 12/03/23930 Date Tiago Vigil MD CC: ALEX Bhandari; Dr. Odalis Saravia MD; Dr. Umesh Velázquez MD Signed Normal [facility] Basic Metabolic Profile (BMP )on 11-29-2023 BUN Normal 7-18 [facility] Comment on above: Result Comment: Canc elled via OM: Order cancelled - Patient discharged Performed By: #### L 500.2500, L100.0100 #### [facility] [address] [place], [address] BUN/CRE Normal 10-20 [facility] Comment on above: Result Comment: Canc elled via OM: Order cancelled - Patient discharged Performed By: #### L 500.2500, L100.0100 #### [facility] [address] [place], [address] CA,Total Normal 8.5-10.1 [facility] Comment on above: Result Comment: Canc elled via OM: Order cancelled - Patient discharged Performed By: #### L 500.2500, L100.0100 #### [facility] [address] [place], [address] CL Normal 98-107 [facility] Comment on above: Result Comment: Canc elled via OM: Order cancelled - Patient discharged Performed By: #### L 500.2500, L100.0100 #### [facility] [address] [place], [address] CO2 Normal 21.0-32.0 [facility] Comment on above: Result Comment: Canc elled via OM: Order cancelled - Patient discharged Performed By: #### L 500.2500, L100.0100 #### [facility] [address] [place], [address] CREAT,SERUM Normal 0.55-1.02 [facility] Comment on above: Result Comment: Canc elled via OM: Order cancelled - Patient discharged Performed By: #### L 500.2500, L100.0100 #### [facility] [address] [place], [address] EST GFR Normal >60 [facility] Comment on above: Result Comment: Canc elled via OM: Order cancelled - Patient discharged Performed By: #### L 500.2500, L100.0100 #### [facility] [address] [place], [address] EST GFR - AA Normal >60 [facility] Comment on above: Result Comment: Canc elled via OM: Order cancelled - Patient discharged Performed By: #### L 500.2500, L100.0100 #### [facility] [address] [place], [address] GAP Normal 5-15 [facility] Comment on above: Result Comment: Canc elled via OM: Order cancelled - Patient discharged Performed By: #### L 500.2500, L100.0100 #### [facility] [address] [place], [address] GLU Normal 74-106 [facility] Comment on above: Result Comment: Canc elled via OM: Order cancelled - Patient discharged Performed By: #### L 500.2500, L100.0100 #### [facility] [address] [place], [address] Potassium Normal 3.5-5.1 [facility] Comment on above: Result Comment: Canc elled via OM: Order cancelled - Patient discharged Performed By: #### L 500.2500, L100.0100 #### [facility] [address] [place], [address] Basic Metabolic Profile (BMP) Normal 136-145 [facility] Comment on above: Result Comment: Canc elled via OM: Order cancelled - Patient discharged Performed By: #### L 500.2500, L100.0100 #### [facility] [address] [place], [address] Brain/Head without Contrasto n 11-29-2023 Brain/Head without Contrast [facility] Imaging Services [address] [place] [address] Brain/Head without Contrast MR#: [id number] Acct: [id number] Name: KAYLENE HAYNES LY Rep #: [id number] : 1935 F 88 From: Olivier wayne MD PCP: Dr. Odalis Saravia MD Status: REG ER Study: Brain/Head without Contrast Date of Exam: 11/16 09/08 Exam# [id number] Ordering Dr: Bart Bhandari [employer]-C [id number] STUDY: CT BRAIN WITHOUT CONTRAST REASON FOR EXAM: Female, 88 years old. Fall RADIATION DOSAGE (If Supplied By Facility): CTDIvol = ( 44.99 ) mGy, DLP = ( 812.98 ) mGycm TECHNIQUE: Transaxial CT imaging of the brain was performed without administration of intravenous contrast material. Individualized dose optimization techniques were used for this CT. COMPARISON: Comparison is made with prior study November 04, 2023. FINDINGS: Normal soft tissue structures. Normal calvarium. There is mild cerebral atrophy with widening of the extra-axial spaces and ventricular dilatation. There are areas of decreased attenuation within the white matter tracts of the supratentorial brain, consistent with microvascular disease changes. Normal basal ganglia and thalami. Normal brainstem. Normal cerebellum. There is no intracranial hemorrhage. There are no findings of an acute ischemic infarction. Atherosclerotic calcific plaques of the vertebral arteries and cavernous portions of the internal carotid arteries bilaterally. Nasal septal deviation towards the right side of the midline. CT/Brain/Head without Contrast IMPRESSION: Chronic involutional changes of the brain. Electronically Signed: Olivier Maradiaga MD at 15:31 EDT , CC: ALEX Bhandari; Dr. Odalis Saravia MD Vegetable Tier: Signed Normal [facility] CBC W/Diff, Automatedon 11-16 SMEAR COMMENT SCANNED Normal [facility] Comment on above: Result Comment: LYMP HOCYTOSIS NOTED Performed By: #### L 100.0100, L501.4020, L500.4050 ####[facility] [address] [place], [address] Absolute Neut Normal 2.0-7.7 [facility] Comment on above: Result Comment: Canc elled via OM: Order cancelled - Patient discharged Performed By: #### L 500.2500, L100.0100 #### [facility] [address] [place], [address] HCT Normal 37-47 [facility] Comment on above: Result Comment: Canc elled via OM: Order cancelled - Patient discharged Performed By: #### L 500.2500, L100.0100 #### [facility] [address] [place], [address] HGB Normal 12.0-15.0 [facility] Comment on above: Result Comment: Canc elled via OM: Order cancelled - Patient discharged Performed By: #### L 500.2500, L100.0100 #### [facility] [address] [place], [address] MCH Normal 27.0-32.0 [facility] Comment on above: Result Comment: Canc elled via OM: Order cancelled - Patient discharged Performed By: #### L 500.2500, L100.0100 #### [facility] [address] [place], [address] MCHC Normal 32-36 [facility] Comment on above: Result Comment: Canc elled via OM: Order cancelled - Patient discharged Performed By: #### L 500.2500, L100.0100 #### [facility] [address] [place], [address] MCV Normal 81-99 [facility] Comment on above: Result Comment: Canc elled via OM: Order cancelled - Patient discharged Performed By: #### L 500.2500, L100.0100 #### [facility] [address] [place], [address] NEUT% Normal 47-70 [facility] Comment on above: Result Comment: Canc elled via OM: Order cancelled - Patient discharged Performed By: #### L 500.2500, L100.0100 #### [facility] [address] [place], [address] PLT Normal 150-450 [facility] Comment on above: Result Comment: Canc elled via OM: Order cancelled - Patient discharged Performed By: #### L 500.2500, L100.0100 #### [facility] [address] [place], [address] RBC Normal 4.2-5.4 [facility] Comment on above: Result Comment: Canc elled via OM: Order cancelled - Patient discharged Performed By: #### L 500.2500, L100.0100 #### [facility] [address] [place], [address] RDW CV Normal 11.6-14.6 [facility] Comment on above: Result Comment: Canc elled via OM: Order cancelled - Patient discharged Performed By: #### L 500.2500, L100.0100 #### [facility] [address] [place], [address] RDW SD Normal 35.1-43.9 [facility] Comment on above: Result Comment: Canc elled via OM: Order cancelled - Patient discharged Performed By: #### L 500.2500, L100.0100 #### [facility] [address] [place], [address] WBC Normal 4.4-11.0 [facility] Comment on above: Result Comment: Canc elled via OM: Order cancelled - Patient discharged Performed By: #### L 500.2500, L100.0100 #### [facility] [address] [place], [address] Chest 1 View (Portable)on Chest 1 View (Portable) [facility] Imaging Services [address] [place] [address] Chest 1 View (Portable) MR#: [id number] Acct: [id number] Name: KAYLENE HAYNES LY Rep #: [id number] : 1935 F 88 From: Deven conway MD PCP: Dr. Odalis Saravia MD Status: REG ER Study: Chest 1 View (Portable) Date of Exam: 11/29/23 Exam# [id number] Ordering Dr: Bart Bhandari [employer]-C [id number] STUDY: X-RAY CHEST REASON FOR EXAM: Female, 88 years old. cough TECHNIQUE: Single AP portable view of the chest. COMPARISON: 11/08/2023. FINDINGS: The lungs are hyperexpanded. There are coarsened interstitial markings suggestive of mild chronic fibrosis. No gross focal infiltrates. No gross effusions. Sternal cerclage wires and vascular clips are present from a prior sternotomy and coronary artery bypass graft procedure (CABG). Normal mediastinum and bar. Normal visualized pulmonary arteries. Normal visualized aortic arch and descending thoracic aorta. Normal visualized thoracic spine. There is fracture of the proximal right humerus also present previously. There is no demonstrated abnormality of the visualized soft tissue structures of the upper abdomen. RAD/Chest 1 View (Portable) IMPRESSION: No definite acute or significant abnormality seen. Electronically Signed: Deven Cruz MD at 16:30 EDT , CC: ALEX Bhandari; Dr. Odalis Saravia MD Vegetable Tier: Signed Normal [facility] Comprehensive Metabolic Prof kson 11-29-2023 Albumin [Mass/Vol] 2.9 g/dL Low 3.2-5.0 [facility] Comment on above: Order Comment: 'TROP ' Serial specimen #1, #2 or #3: 1 Performed By: #### L 100.0100, L501.4020, L500.4050 ####[facility] [address] [place], [address] Albumin/Globulin [Mass ratio] 0.8 {ratio} Low 0.9-2.4 [facility] Comment on above: Order Comment: 'TROP ' Serial specimen #1, #2 or #3: 1 Performed By: #### L 100.0100, L501.4020, L500.4050 ####[facility] [address] [place], [address] ALK P 148 U/L High 45-117 [facility] Comment on above: Order Comment: 'TROP ' Serial specimen #1, #2 or #3: 1 Performed By: #### L 100.0100, L501.4020, L500.4050 ####[facility] [address] [place], [address] ALT [Catalytic activity/Vol] 11 U/L Low 13-56 [facility] Comment on above: Order Comment: 'TROP ' Serial specimen #1, #2 or #3: 1 Performed By: #### L 100.0100, L501.4020, L500.4050 ####[facility] [address] [place], [address] AST [Catalytic activity/Vol] 32 U/L Normal 15-37 [facility] Comment on above: Order Comment: 'TROP ' Serial specimen #1, #2 or #3: 1 Result Comment: Mode rate Hemolysis, Result may be falsely increased. Performed By: #### L 100.0100, L501.4020, L500.4050 ####[facility] [address] [place], [address] Bilirubin [Mass/Vol] 0.40 mg/dL Normal 0.20-1.00 [facility] Comment on above: Order Comment: 'TROP ' Serial specimen #1, #2 or #3: 1 Result Comment: For patients on eltrombopag therapy, use of Dimension [place] TBIL is not recommended. Performed By: #### L 100.0100, L501.4020, L500.4050 ####[facility] [address] [place], [address] BUN/CRE 23.6 RATIO High 10-20 [facility] Comment on above: Order Comment: 'TROP ' Serial specimen #1, #2 or #3: 1 Performed By: #### L 100.0100, L501.4020, L500.4050 ####[facility] [address] [place], [address] CA,Total 8.8 mg/dL Normal 8.5-10.1 [facility] Comment on above: Order Comment: 'TROP ' Serial specimen #1, #2 or #3: 1 Performed By: #### L 100.0100, L501.4020, L500.4050 ####[facility] [address] [place], [address] Chloride [Moles/Vol] 105 mmol/L Normal 98-107 [facility] Comment on above: Order Comment: 'TROP ' Serial specimen #1, #2 or #3: 1 Performed By: #### L 100.0100, L501.4020, L500.4050 ####[facility] [facility] [address] [place], [address] CO2 [Moles/Vol] 27.0 mmol/L Normal 21.0-32.0 [facility] Comment on above: Order Comment: 'TROP ' Serial specimen #1, #2 or #3: 1 Performed By: #### L 100.0100, L501.4020, L500.4050 ####[facility] [address] [place], [address] Creatinine [Mass/Vol] 1.27 mg/dL High 0.55-1.02 [facility] Comment on above: Order Comment: 'TROP ' Serial specimen #1, #2 or #3: 1 Result Comment: The validity of the calculated GFR GFRAA in patients over 70 years has not been determined. Clinical correlation is essential. Performed By: #### L 100.0100, L501.4020, L500.4050 ####[facility] [address] [place], [address] ECRCL 22.42 ml/min Normal [facility] Comment on above: Order Comment: 'TROP ' Serial specimen #1, #2 or #3: 1 Performed By: #### L 100.0100, L501.4020, L500.4050 ####[facility] [address] [place], [address] EST GFR - AA 51 mL/min Low >60 [facility] Comment on above: Order Comment: 'TROP ' Serial specimen #1, #2 or #3: 1 Result Comment: Afri can Citizen [place] GFR Calc Performed By: #### L 100.0100, L501.4020, L500.4050 ####[facility] [address] [place], [address] GAP 3 Low 5-15 [facility] Comment on above: Order Comment: 'TROP ' Serial specimen #1, #2 or #3: 1 Performed By: #### L 100.0100, L501.4020, L500.4050 ####[facility] [address] [place], [address] GFR/1.73 sq M.predicted among non-blacks MDRD (S/P/Bld) [Vol rate/Area] 42 mL/min/{1.73_m2} Low >60 [facility] Comment on above: Order Comment: 'TROP ' Serial specimen #1, #2 or #3: 1 Result Comment: Non- GFR Calc Performed By: #### L 100.0100, L501.4020, L500.4050 ####[facility] [address] [place], [address] Globulin (S) [Mass/Vol] 3.5 g/dL Normal 2.2-4.2 [facility] Comment on above: Order Comment: 'TROP ' Serial specimen #1, #2 or #3: 1 Performed By: #### L 100.0100, L501.4020, L500.4050 ####[facility] [address] [place], [address] Glucose [Mass/Vol] 110 mg/dL High 74-106 [facility] Comment on above: Order Comment: 'TROP ' Serial specimen #1, #2 or #3: 1 Result Comment: Fast ing Glucose result from 100 to 125 mg/dL suggests IMPAIRED HOMEOSTASIS per A.D.A. criteria. Performed By: #### L 100.0100, L501.4020, L500.4050 ####[facility] [address] [place], [address] Potassium [Moles/Vol] 4.4 mmol/L Normal 3.5-5.1 [facility] Comment on above: Order Comment: 'TROP ' Serial specimen #1, #2 or #3: 1 Result Comment: Mode rate Hemolysis, Result may be falsely increased. Performed By: #### L 100.0100, L501.4020, L500.4050 ####[facility] [address] [place], [address] Sodium [Moles/Vol] 135 mmol/L Low 136-145 [facility] Comment on above: Order Comment: 'TROP ' Serial specimen #1, #2 or #3: 1 Performed By: #### L 100.0100, L501.4020, L500.4050 ####[facility] [address] [place], [address] T PROT 6.4 g/dL Normal 6.4-8.2 [facility] Comment on above: Order Comment: 'TROP ' Serial specimen #1, #2 or #3: 1 Performed By: #### L 100.0100, L501.4020, L500.4050 ####[facility] [address] [place], [address] Urea nitrogen [Mass/Vol] 30 mg/dL High 7-18 [facility] Comment on above: Order Comment: 'TROP ' Serial specimen #1, #2 or #3: 1 Performed By: #### L 100.0100, L501.4020, L500.4050 ####[facility] [address] [place], [address] Elbow min 3 Viewson 11-29-19 Elbow min 3 Views [facility] Imaging Services [address] [place] [address] Elbow min 3 Views MR#: [id number] Acct: [id number] Name: KAYLENE HAYNES Rep #: [id number] : 1935 F 88 From: Deven conway MD PCP: Dr. Odalis Saravia MD Status: REG ER Study: Elbow min 3 Views Date of Exam: 11/29/23 Exam# [id number] Ordering Dr: Bart Bhandari [employer]el [id number] STUDY: X-RAY - LEFT ELBOW REASON FOR EXAM: Female, 88 years old. fall TECHNIQUE: 3 view(s) of the elbow. COMPARISON: None. FINDINGS: Normal visualized humerus, radius and ulna. Normal radiocapitellar and ulnotrochlear articulations. The soft tissue structures are unremarkable. There is no demonstrated fracture. RAD/Elbow min 3 Views IMPRESSION: Normal x-ray examination of the elbow. Electronically Signed: Deven Cruz MD at 16:31 EDT , CC: ALEX Bhandari; Dr. Odalis Saravia MD Vegetable Tier: Signed Normal [facility] Emergency Department Summary on 11-29-2023 Emergency Department Summary [facility] Medical Records Department [address] [place] [address] Emergency Department Summary 11/29/23 MR#: [id number] Acct: [id number] Name: KAYLENE HAYNES Rep #: [id number] : 1935 88 From: Bart JOHNSON PCP: Dr. Odalis Saravia MD Status:DEP ER Location: ED HPI History of Present Illness Chief Complaint: Fall Narrative Narrative: Patient is an 88-year-old female with history of dementia, hypertension hyperlipidemia who recently fell and has a currently at [facility]. Patient does have a right humeral fracture that she is currently getting treatment for. Today, the patient was walking outside, she then had what staff thought was a syncopal episode, when I speak to the patient she states that she more of lost her balance. However per the nurse practitioner, the patient was not very awake, she had to get sternal rubbed, and her blood pressure was low. Per the staff, she has been more somnolent recently and is here for evaluation. Unsure if she struck her head. Patient does have some skin tears to both tibias, left elbow. 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 Falls Parkinson's disease CKD (chronic kidney disease), stage III Anemia Brain TIA Parotid tumor Lymphoma Parkinsons disease Premature ventricular contraction Hypertension Premature atrial contractions Hyperlipidemia History of atrial myxoma Nonrheumatic tricuspid valve regurgitation Nonrheumatic mitral valve regurgitation Nonrheumatic mitral (valve) prolapse Home Medications ???Medication ???Instructions ???Recorded ???Last Taken ???Type multivitamin 1 tab PO DAILY SUPPLEMENT 11/20/18 11/07/23 08:00 History carbidopa 25 mg-levodopa 100 mg 2 tab PO TID PARKINSONS 01/05/23 11/08/23 05:40 History tablet aspirin 81 mg chewable tablet 81 mg PO [facility] 1 06/29/23 11/07/23 08:00 Rx month #30 tabs VITAL TEARS 1 drp ophthalmic (eye) TID DRY EYES 09/08/23 11/08/23 05:40 History cyanocobalamin (vitamin B-12) 1,000 mcg sublingual DAILY 09/08/23 11/07/23 10:00 History 1,000 mcg sublingual tablet SUPPLEMENT midodrine 5 mg tablet 10 mg (2 x 5 mg) PO TIDCM BLOOD 09/14/23 11/07/23 07:45 Rx PRESSURE #0 tabs acetaminophen 325 mg tablet 650 mg (2 x 325 mg) PO Q8 #0 tabs 11/20/23 Unknown Rx Allergy/AdvReac Type Severity Reaction Status Date / Time Penicillins Allergy Rash Verified 11/08/23 09:57 risperidone (From Risperdal) AdvReac Severe Low blood Verified 11/09/23 15:26 pressure tramadol AdvReac Other Verified 11/08/23 09:57 Family History Father Heart disease CHF (congestive heart failure) Mother No problems noted. Surgical History History of facial surgery History of splenectomy History of laparoscopic cholecystectomy Social History household members: none housing: assisted living facility Smoking Status: Never smoker alcohol intake: current details: occasional substance use type: does not use ROS ROS ED ROS Narrative Constitutional: Negative for fever, chills, weight loss, weakness Eyes: Negative for vision loss, vision change, double vision ENT: Negative for any sore throat, ear pain, congestion Cardiovascular: Negative for any chest pain, tightness, palpitations Respiratory: Negative for any cough, sputum production, hemoptysis, dyspnea, dyspnea on exertion, orthopnea Gastrointestinal: Negative for any abdominal pain, nausea, vomiting, diarrhea, constipation, blood in stool, blood in vomit : Negative for any urinary frequency, dysuria, retention, blood in urine Muscle skeletal: Negative for any neck pain, back pain Neurological: Negative for any headache, syncope, dizziness Skin: Negative for any rashes, itching, abrasions, lacerations. Positive for skin tears to bilateral legs, left elbow Psychiatric: Negative for any depression, anxiety, stress, suicidal ideation, homicidal ideation Hematologic: Negative for any excessive bruising, easy bleeding EXAM Physical Exam Narrative Exam Narrative: Vital signs reviewed. Patient does appear to be somnolent, patient does fall asleep when I am not talking to her. Patient does wake up with verbal stimuli. Patient is alert and oriented x 2-3. HEET: Head normocephalic atraumatic, TMs clear bilaterally. Posterior pharynx is clear, dry mucous membranes. Nares clear bilaterally. Neck: Supple with no lymphadenopathy or tenderness. No signs of meningismus. Cardiac: Regular rate and rhythm no murmurs gallops or rubs, equal peripheral pulses bilaterally. Respiratory: Lungs clear to auscultation bilaterally. (more content not included)... Normal [facility] L501.4020on 11-29-2023 TROPONIN-I HS < 3 Low 3.0-54.0 [facility] Comment on above: Order Comment: 'TROP ' Serial specimen #1, #2 or #3: 1 Result Comment: Plea se Note: New Test Units and Gender Specific Reference Ranges. For more information see Policy Stat Procedure [place] High Sensitivity Troponin (TNIH) and attachments. Performed By: #### L 100.0100, L501.4020, L500.4050 ####[facility] [address] [place], [address] Urinalysis, Completeon 11-28 EPI,SQUAMOUS 0-5 SEEN Normal 5-10 [facility] Comment on above: Order Comment: CLEAN CATCH Performed By: #### L 400.0001 #### [facility] [address] [place], [address] BACTERIA 0 SEEN Normal None Seen [facility] Comment on above: Order Comment: CLEAN CATCH Performed By: #### L 400.0001 #### [facility] [address] [place], [address] Mucus Ql (Urine sed) 0 SEEN Normal [facility] Comment on above: Order Comment: CLEAN CATCH Performed By: #### L 400.0001 #### [facility] [address] [place], [address] RBC 0 SEEN Normal 0-5 [facility] Comment on above: Order Comment: CLEAN CATCH Performed By: #### L 400.0001 #### [facility] [address] [place], [address] WBC 0 SEEN Normal 0-5 [facility] Comment on above: Order Comment: CLEAN CATCH Performed By: #### L 400.0001 #### [facility] [address] [place], [address] Basic Metabolic Profile (BMP )on 11-22-2023 BUN/CRE 34.3 RATIO High 10-20 [facility] Comment on above: Performed By: #### L 100.0100, L500.2500 ####[facility] [address] [place], [address] CA,Total 8.9 mg/dL Normal 8.5-10.1 [facility] Comment on above: Performed By: #### L 100.0100, L500.2500 ####[facility] [address] [place], [address] Chloride [Moles/Vol] 107 mmol/L Normal 98-107 [facility] Comment on above: Performed By: #### L 100.0100, L500.2500 ####[facility] [address] [place], [address] CO2 [Moles/Vol] 26.0 mmol/L Normal 21.0-32.0 [facility] Comment on above: Performed By: #### L 100.0100, L500.2500 ####[facility] [address] [place], [address] Creatinine [Mass/Vol] 1.02 mg/dL Normal 0.55-1.02 [facility] Comment on above: Result Comment: The validity of the calculated GFR GFRAA in patients over 70 years has not been determined. Clinical correlation is essential. Performed By: #### L 100.0100, L500.2500 ####[facility] [address] [place], [address] ECRCL 27.96 ml/min Normal [facility] Comment on above: Performed By: #### L 100.0100, L500.2500 ####[facility] [address] [place], [address] EST GFR - AA 66 mL/min Normal >60 [facility] Comment on above: Result Comment: Afri can Citizen [place] GFR Calc Performed By: #### L 100.0100, L500.2500 ####[facility] [address] [place], [address] GAP 6 Normal 5-15 [facility] Comment on above: Performed By: #### L 100.0100, L500.2500 ####[facility] [address] [place], [address] GFR/1.73 sq M.predicted among non-blacks MDRD (S/P/Bld) [Vol rate/Area] 54 mL/min/{1.73_m2} Low >60 [facility] Comment on above: Result Comment: Non- GFR Calc Performed By: #### L 100.0100, L500.2500 ####[facility] [address] [place], [address] Glucose [Mass/Vol] 88 mg/dL Normal 74-106 [facility] Comment on above: Performed By: #### L 100.0100, L500.2500 ####[facility] [address] [place], [address] Potassium [Moles/Vol] 4.5 mmol/L Normal 3.5-5.1 [facility] Comment on above: Performed By: #### L 100.0100, L500.2500 ####[facility] [address] [place], [address] Sodium [Moles/Vol] 139 mmol/L Normal 136-145 [facility] Comment on above: Performed By: #### L 100.0100, L500.2500 ####[facility] [address] [place], [address] Urea nitrogen [Mass/Vol] 35 mg/dL High 7-18 [facility] Comment on above: Performed By: #### L 100.0100, L500.2500 ####[facility] [address] [place], [address] CBC W/Diff, Automatedon 06-0 SMEAR COMMENT SCANNED Normal [facility] Comment on above: Performed By: #### L 100.0100, L500.2500 ####[facility] [address] [place], [place], [address] Absolute lymphocyte countOrd ered By: Odalis Saravia on 10-17-2023 Lymphocytes Auto (Unsp spec) [#/Vol] 6.70 10*3/uL 0.83-4.51 [facility] Automated lymphocyte count a s percentage of total leukocytesOrdered By: Odalis Saravia on 10-17-2023 Lymphocytes/100 WBC Auto (Unsp spec) 46.1 % 19-41 [facility] Basophil percentageOrdered B y: Odalis Saravia on 10-17-2023 Basophil percentage 10.7 g/dL 12.0-15.0 [facility] Basophil percentage 91 mg/dL 74-106 [facility] Basophil percentage 140 mmol/L 136-145 [facility] Basophil percentage 4.2 mmol/L 3.5-5.1 [facility] Basophil percentage 108 mmol/L 98-107 [facility] Basophils (Bld) [#/Vol] 14.5 10*3/uL 4.4-11.0 [facility] Basophils (Bld) [#/Vol] 5.4 10*3/uL 2.0-7.7 [facility] Basophils/100 WBC (Bld) 37.3 % 47-70 [facility] Basophils/100 WBC (Bld) 10.3 % 0-10 [facility] Basophils/100 WBC (Bld) 3.5 % 0-5 [facility] Basophils/100 WBC (Bld) 2.5 % 0-1 [facility] Chloride [Moles/Vol] 108 mmol/L 98-107 [facility] Eosinophils/100 WBC (Bld) 3.5 % 0-5 [facility] Glucose [Mass/Vol] 91 mg/dL 74-106 [facility] Hemoglobin (Bld) [Mass/Vol] 10.7 g/dL 12.0-15.0 [facility] Monocytes/100 WBC (Bld) 10.3 % 0-10 [facility] Neutrophils (Bld) [#/Vol] 5.4 10*3/uL 2.0-7.7 [facility] Neutrophils/100 WBC (Bld) 37.3 % 47-70 [facility] Potassium [Moles/Vol] 4.2 mmol/L 3.5-5.1 [facility] Sodium [Moles/Vol] 140 mmol/L 136-145 [facility] WBC (Bld) [#/Vol] 14.5 10*3/uL 4.4-11.0 [facility] Blood platelet adequacy dete ction by light microscopyOrdered By: Odalis Saravia on 10-17-2023 Platelets LM Ql (Bld) ADEQUATE ADEQ [facility] Determination of erythrocyte mean corpuscular volume (MCV)Ordered By: Odalis Saravia on 10-17-2023 MCV (RBC) [Entitic vol] 93.8 fL 81-99 [facility] Erythrocyte distribution wid th ratioOrdered By: Odalis Saravia on 10-17-2023 Erythrocyte distribution width (RBC) [Ratio] 14.1 % 11.6-14.6 [facility] Erythrocyte distribution wid th standard deviationOrdered By: Candice[facility]illiamsportlaila Saravia on 10-17-2023 Erythrocyte distribution width (RBC) [Entitic vol] 49.1 fL 35.1-43.9 [facility] Hematocrit Auto (Bld) [Volum e fraction]Ordered By: Odalis Saravia on 10-17-2023 Hematocrit (Bld) [Volume fraction] 33.4 % 37-47 [facility] Immature granulocytes/100 WB C Auto (Bld)Ordered By: Odalis Saravia on 10-17-2023 Immature granulocytes/100 WBC (Bld) 0.300 % 0.0-0.9 [facility] Comment on above: IG% - Immature Granu locytes (promyelocytes, myelocytes and metamyelocytes) > 1% indicates that a LEFT SHIFT is Present. Laboratory - Chemistry and C hemistry - challengeOrdered By: Odalis Saravia on 10-17-2023 CO2 [Moles/Vol] 31.0 mmol/L 21.0-32.0 [facility] Urea nitrogen/Creatinine [Mass ratio] 21.9 mg/mg 10- [facility] Laboratory - Hematology and Cell countsOrdered By: Odalis Saravia on 10-17-2023 MCH (RBC) [Entitic mass] 30.1 pg 27.0-32.0 [facility] MCHC (RBC) [Mass/Vol] 32.0 g/dL - [facility] Nucleated RBC/100 WBC (Bld) [Ratio] 0 % 0-5 [facility] Platelet mean volume (Bld) [Entitic vol] 12.0 fL 6.2-12.0 [facility] No Panel InformationOrdered By: Odalis Saravia on 10-17-2023 Estimated GFR (MDRD) Amer 58 mL/min >60 [facility] Comment on above: GFR Calc Estimated GFR (MDRD) Non-Af Amer 48 mL/min >60 [facility] Comment on above: Non- GFR Calc Platelet Count See comment 150-450 [facility] Comment on above: Please note: For thi s sample, a platelet estimate is provided rather than a platelet count due to platelet clumping. Other parameters associated with this sample are not affected by platelet clumping. If a more accurate platelet count is required, a redraw of the patient will be necessary. 30.1 pg 27.0-32.0 [facility] 32.0 g/dL -36 [facility] See comment 150-450 [facility] 12.0 fl 6.2-12.0 [facility] 0 % 0-5 [facility] 48 mL/min >60 [facility] 58 mL/min >60 [facility] 21.9 RATIO 10- [facility] 31.0 mmol/L 21.0-32.0 [facility] RBC Auto (Bld) [#/Vol]Ordere d By: Odalis Saravia on 10-17-2023 RBC (Bld) [#/Vol] 3.56 10*6/uL 4.2-5.4 [facility] Serum or plasma calcium fran urement (mass/volume)Ordered By: Odalis Saravia on 10-17-2023 Calcium [Mass/Vol] 8.7 mg/dL 8.5-10.1 [facility] Serum or plasma creatinine m easurement (mass/volume)Ordered By: Odalis Saravia on 10-17-2023 Creatinine [Mass/Vol] 1.14 mg/dL 0.55-1.02 [facility] Comment on above: The validity of the calculated GFR & GFRAA in patients over 70 years has not been determined. Clinical correlation is essential. Serum or plasma urea nitroge n measurement (mass/volume)Ordered By: Odalis Saravia on 10-17-2023 Urea nitrogen [Mass/Vol] 25 mg/dL 7-18 [facility] Thin prep Papanicolaou smear with manual screeningOrdered By: Odalis Saravia on 10-17-2023 Thin prep Papanicolaou smear with manual screening 1 5-15 [facility] Absolute lymphocyte countOrd ered By: Odalis Saravia on 10-05-2023 Lymphocytes Auto (Unsp spec) [#/Vol] 5.57 10*3/uL 0.83-4.51 [facility] Automated lymphocyte count a s percentage of total leukocytesOrdered By: Odalis Saravia on 10-05-2023 Lymphocytes/100 WBC Auto (Unsp spec) 45.8 % 19-41 [facility] Basophil percentageOrdered B y: Odalis Saravia on 10-05-2023 Basophil percentage 10.9 g/dL 12.0-15.0 [facility] Basophil percentage 90 mg/dL 74-106 [facility] Basophil percentage 6.1 g/dL 6.4-8.2 [facility] Basophil percentage 0.30 mg/dL 0.20-1.00 [facility] Basophil percentage 130 mg/dL <200 [facility] Basophil percentage 139 mg/dL <199 [facility] Basophil percentage 140 mmol/L 136-145 [facility] Basophil percentage 4.1 mmol/L 3.5-5.1 [facility] Basophil percentage 104 mmol/L 98-107 [facility] Basophils (Bld) [#/Vol] 12.2 10*3/uL 4.4-11.0 [facility] Basophils (Bld) [#/Vol] 4.4 10*3/uL 2.0-7.7 [facility] Basophils/100 WBC (Bld) 36.4 % 47-70 [facility] Basophils/100 WBC (Bld) 11.1 % 0-10 [facility] Basophils/100 WBC (Bld) 4.0 % 0-5 [facility] Basophils/100 WBC (Bld) 2.5 % 0-1 [facility] Bilirubin [Mass/Vol] 0.30 mg/dL 0.20-1.00 [facility] Comment on above: For patients on eltr ombopag therapy, use of Dimension [place] TBIL is not recommended. Chloride [Moles/Vol] 104 mmol/L 98-107 [facility] Cholesterol [Mass/Vol] 130 mg/dL <200 [facility] Comment on above: <200 mg/dL Desirable 200-240 mg/dL Borderline >240 mg/dL High Risk Eosinophils/100 WBC (Bld) 4.0 % 0-5 [facility] Glucose [Mass/Vol] 90 mg/dL 74-106 [facility] Hemoglobin (Bld) [Mass/Vol] 10.9 g/dL 12.0-15.0 [facility] Monocytes/100 WBC (Bld) 11.1 % 0-10 [facility] Neutrophils (Bld) [#/Vol] 4.4 10*3/uL 2.0-7.7 [facility] Neutrophils/100 WBC (Bld) 36.4 % 47-70 [facility] Potassium [Moles/Vol] 4.1 mmol/L 3.5-5.1 [facility] Protein [Mass/Vol] 6.1 g/dL 6.4-8.2 [facility] Sodium [Moles/Vol] 140 mmol/L 136-145 [facility] Triglyceride [Mass/Vol] 139 mg/dL <199 [facility] Comment on above: The drugs N-Acetylcy steine and Metamizole may falsely depress this assay.Serum Triglycerides Reference Interval Normal <150 mg/dL Borderline high 150 - 199 mg/dL High 200 - 499 mg/dL Very High > or = 500 mg/dL WBC (Bld) [#/Vol] 12.2 10*3/uL 4.4-11.0 [facility] Blood manual differential co mment interpretation (narrative result)Ordered By: Odalis Saravia on 10-05-2023 Manual differential comment Porter (Bld) [Interp] SCANNED [facility] Determination of erythrocyte mean corpuscular volume (MCV)Ordered By: Odalis Saravia on 10-05-2023 MCV (RBC) [Entitic vol] 94.2 fL 81-99 [facility] Erythrocyte distribution wid th ratioOrdered By: [facility] Riccardocarlito on 10-05-2023 Erythrocyte distribution width (RBC) [Ratio] 13.6 % 11.6-14.6 [facility] Erythrocyte distribution wid th standard deviationOrdered By: [facility] Riccardocarlito on 10-05-2023 Erythrocyte distribution width (RBC) [Entitic vol] 46.8 fL 35.1-43.9 [facility] Hematocrit Auto (Bld) [Volum e fraction]Ordered By: [facility] Gucarlito on 10-05-2023 Hematocrit (Bld) [Volume fraction] 33.8 % 37-47 [facility] Immature granulocytes/100 WB C Auto (Bld)Ordered By: [facility] Gucarlito on 10-05-2023 Immature granulocytes/100 WBC (Bld) 0.200 % 0.0-0.9 [facility] Comment on above: IG% - Immature Granu locytes (promyelocytes, myelocytes and metamyelocytes) > 1% indicates that a LEFT SHIFT is Present. Laboratory - Chemistry and C hemistry - challengeOrdered By: [facility] Gucarlito on 10-05-2023 Albumin/Globulin [Mass ratio] 1.0 {ratio} 0.9-2.4 [facility] ALP [Catalytic activity/Vol] 97 U/L 45-117 [facility] ALT [Catalytic activity/Vol] 14 U/L 13-56 [facility] Cholesterol in HDL [Mass/Vol] 47 mg/dL >40 [facility] Comment on above: The drugs N-Acetylcy steine and Metamizole may falsely depress this assay. Reference Range HDL <40 mg/dL Low HDL Cholesterol HDL >or= 60 mg/dL High HDL Cholesterol Cholesterol in LDL [Mass/Vol] 55 mg/dL 0-130 [facility] CO2 [Moles/Vol] 30.0 mmol/L 21.0-32.0 [facility] Globulin (S) [Mass/Vol] 3.1 g/dL 2.2-4.2 [facility] Urea nitrogen/Creatinine [Mass ratio] 28.2 mg/mg 10-20 [facility] Laboratory - Hematology and Cell countsOrdered By: Odalis Saravia on 10-05-2023 MCH (RBC) [Entitic mass] 30.4 pg 27.0-32.0 [facility] MCHC (RBC) [Mass/Vol] 32.2 g/dL 32-36 [facility] Nucleated RBC/100 WBC (Bld) [Ratio] 0 % 0-5 [facility] Platelet mean volume (Bld) [Entitic vol] 10.6 fL 6.2-12.0 [facility] Platelets (Bld) [#/Vol] 346 10*3/uL 150-450 [facility] No Panel InformationOrdered By: Odalis Saravia on 10-05-2023 Estimated GFR (MDRD) Amer 65 mL/min >60 [facility] Comment on above: GFR Calc Estimated GFR (MDRD) Non-Af Amer 54 mL/min >60 [facility] Comment on above: Non- GFR Calc Reactive Lymphocytes 1+ [facility] Vitamin B12 Level > 2000 pg/mL 211-911 [facility] Vitamin D 25-Hydroxy 60.0 ng/mL [facility] Comment on above: Vitamin D 25(OH) Sta tus Range Deficiency <20 ng/mL (50nmol/L) Insufficiency 20 - 30 ng/mL (50 - 75 nmol/L) Sufficiency 30 - 100 ng/mL (75 - 250 nmol/L) Toxicity >100 ng/mL (>250 nmol/L) VLDL Cholesterol 28 mg/dL 5-40 [facility] 30.4 pg 27.0-32.0 [facility] 32.2 g/dL 32-36 [facility] 346 K/mm3 150-450 [facility] 10.6 fl 6.2-12.0 [facility] 0 % 0-5 [facility] 1+ [facility] 54 mL/min >60 [facility] 65 mL/min >60 [facility] 28.2 RATIO 10-20 [facility] 3.1 g/dL 2.2-4.2 [facility] 1.0 RATIO 0.9-2.4 [facility] 97 U/L 45-117 [facility] 14 U/L 13-56 [facility] 30.0 mmol/L 21.0-32.0 [facility] 47 mg/dL >40 [facility] 55 mg/dL 0-130 [facility] 28 mg/dL 5-40 [facility] > 2000 pg/mL 211-911 [facility] 60.0 ng/mL [facility] RBC Auto (Bld) [#/Vol]Ordere d By: Odalis Saravia on 10-05-2023 RBC (Bld) [#/Vol] 3.59 10*6/uL 4.2-5.4 [facility] Serum or plasma calcium fran urement (mass/volume)Ordered By: Odalis Saravia on 10-05-2023 Calcium [Mass/Vol] 8.7 mg/dL 8.5-10.1 [facility] Serum or plasma creatinine m easurement (mass/volume)Ordered By: Odalis Saravia on 10-05-2023 Creatinine [Mass/Vol] 1.03 mg/dL 0.55-1.02 [facility] Comment on above: The validity of the calculated GFR & GFRAA in patients over 70 years has not been determined. Clinical correlation is essential. Serum or plasma urea nitroge n measurement (mass/volume)Ordered By: Odalis Saravia on 10-05-2023 Urea nitrogen [Mass/Vol] 29 mg/dL 7-18 [facility] Thin prep Papanicolaou smear with manual screeningOrdered By: Odalis Saravia on 10-05-2023 Thin prep Papanicolaou smear with manual screening 3.0 g/dL 3.2-5.0 [facility] Thin prep Papanicolaou smear with manual screening 38 U/L 15-37 [facility] Thin prep Papanicolaou smear with manual screening 6 5-15 [facility] Absolute lymphocyte countOrd ered By: Howard Zimmerman on 09-29-2023 Lymphocytes Auto (Unsp spec) [#/Vol] 7.05 10*3/uL 0.83-4.51 [facility] Automated lymphocyte count a s percentage of total leukocytesOrdered By: Howard Zimmerman on 09-29-2023 Lymphocytes/100 WBC Auto (Unsp spec) 42.7 % 19-41 [facility] Basophil percentageOrdered B y: Howard Zimmerman on 09-29-2023 Basophil percentage 12.6 g/dL 12.0-15.0 [facility] Basophils (Bld) [#/Vol] 16.5 10*3/uL 4.4-11.0 [facility] Basophils (Bld) [#/Vol] 7.0 10*3/uL 2.0-7.7 [facility] Basophils/100 WBC (Bld) 2.5 % 0-1 [facility] Basophils/100 WBC (Bld) 42.3 % 47-70 [facility] Basophils/100 WBC (Bld) 9.2 % 0-10 [facility] Basophils/100 WBC (Bld) 2.8 % 0-5 [facility] Eosinophils/100 WBC (Bld) 2.8 % 0-5 [facility] Hemoglobin (Bld) [Mass/Vol] 12.6 g/dL 12.0-15.0 [facility] Monocytes/100 WBC (Bld) 9.2 % 0-10 [facility] Neutrophils (Bld) [#/Vol] 7.0 10*3/uL 2.0-7.7 [facility] Neutrophils/100 WBC (Bld) 42.3 % 47-70 [facility] WBC (Bld) [#/Vol] 16.5 10*3/uL 4.4-11.0 [facility] Blood manual differential co mment interpretation (narrative result)Ordered By: Howard Zimmerman on 09-29-2023 Manual differential comment Porter (Bld) [Interp] SCANNED [facility] Determination of erythrocyte mean corpuscular volume (MCV)Ordered By: Howard Zimmerman on 09-29-2023 MCV (RBC) [Entitic vol] 94.0 fL 81-99 [facility] Erythrocyte distribution wid th ratioOrdered By: Howard Zimmerman on 09-29-2023 Erythrocyte distribution width (RBC) [Ratio] 13.5 % 11.6-14.6 [facility] Erythrocyte distribution wid th standard deviationOrdered By: Howard Zimmerman on 09-29-2023 Erythrocyte distribution width (RBC) [Entitic vol] 46.6 fL 35.1-43.9 [facility] Hematocrit Auto (Bld) [Volum e fraction]Ordered By: Howard Zimmerman on 09-29-2023 Hematocrit (Bld) [Volume fraction] 40.4 % 37-47 [facility] Immature granulocytes/100 WB C Auto (Bld)Ordered By: Howard Zimmerman 09-29-2023 Immature granulocytes/100 WBC (Bld) 0.500 % 0.0-0.9 [facility] Comment on above: IG% - Immature Granu locytes (promyelocytes, myelocytes and metamyelocytes) > 1% indicates that a LEFT SHIFT is Present. Laboratory - Hematology and Cell countsOrdered By: Howard Zimmerman 09-29-2023 MCH (RBC) [Entitic mass] 29.3 pg 27.0-32.0 [facility] MCHC (RBC) [Mass/Vol] 31.2 g/dL 32-36 [facility] Nucleated RBC/100 WBC (Bld) [Ratio] 0 % 0-5 [facility] Platelet mean volume (Bld) [Entitic vol] 10.0 fL 6.2-12.0 [facility] Platelets (Bld) [#/Vol] 410 10*3/uL 150-450 [facility] No Panel InformationOrdered By: Howard Zimmerman on 09-29-2023 Reactive Lymphocytes 1+ [facility] 29.3 pg 27.0-32.0 [facility] 31.2 g/dL 32-36 [facility] 410 K/mm3 150-450 [facility] 10.0 fl 6.2-12.0 [facility] 0 % 0-5 [facility] 1+ [facility] RBC Auto (Bld) [#/Vol]Ordere d By: Howard Zimmerman on 09-29-2023 RBC (Bld) [#/Vol] 4.30 10*6/uL 4.2-5.4 [facility] Review by pathologistOrdered By: Howard Zimmerman on 09-29-2023 Pathologist review Porter (Unsp spec) [Interp] Reviewed [facility] Comment on above: Previous reported re sult: Heide bala Edited by: IVAN on 10/01/23:1345Leukocytosis.Clinical correlation necessary.Nilton Flaherty M.D. 10/01/23 AMENDED REPORT 10/01/23 1345 PATH REV previously reported as: Heide mckenna Basophil percentageOrdered B y: Howard Zimmerman on 09-28-2023 Basophil percentage 83 mg/dL 74-106 [facility] Basophil percentage 138 mmol/L 136-145 [facility] Basophil percentage 4.3 mmol/L 3.5-5.1 [facility] Basophil percentage 105 mmol/L 98-107 [facility] Chloride [Moles/Vol] 105 mmol/L 98-107 [facility] Glucose [Mass/Vol] 83 mg/dL 74-106 [facility] Potassium [Moles/Vol] 4.3 mmol/L 3.5-5.1 [facility] Sodium [Moles/Vol] 138 mmol/L 136-145 [facility] Laboratory - Chemistry and C hemistry - challengeOrdered By: Howard Zimmerman on 09-28-2023 CO2 [Moles/Vol] 31.0 mmol/L 21.0-32.0 [facility] Urea nitrogen/Creatinine [Mass ratio] 27.0 mg/mg 10-20 [facility] No Panel InformationOrdered By: Howard Zimmerman on 09-28-2023 Estimated Creatinine Clearance Calc 21.31 ml/min [facility] Estimated GFR (MDRD) Amer 54 mL/min >60 [facility] Comment on above: GFR Calc Estimated GFR (MDRD) Non-Af Amer 44 mL/min >60 [facility] Comment on above: Non- GFR Calc 44 mL/min >60 [facility] 54 mL/min >60 [facility] 21.31 ml/min [facility] 27.0 RATIO 10-20 [facility] 31.0 mmol/L 21.0-32.0 [facility] Serum or plasma calcium fran urement (mass/volume)Ordered By: Howard Zimmerman on 09-28-2023 Calcium [Mass/Vol] 8.7 mg/dL 8.5-10.1 [facility] Serum or plasma creatinine m easurement (mass/volume)Ordered By: Howard Zimmerman on 09-28-2023 Creatinine [Mass/Vol] 1.22 mg/dL 0.55-1.02 [facility] Comment on above: The validity of the calculated GFR & GFRAA in patients over 70 years has not been determined. Clinical correlation is essential. Serum or plasma urea nitroge n measurement (mass/volume)Ordered By: Howard Zimmerman on 09-28-2023 Urea nitrogen [Mass/Vol] 33 mg/dL 7-18 [facility] Thin prep Papanicolaou smear with manual screeningOrdered By: Howard Zimmerman on 09-28-2023 Thin prep Papanicolaou smear with manual screening 2 5-15 [facility] Absolute lymphocyte countOrd ered By: Maame Pinon on 09-11-2023 Lymphocytes Auto (Unsp spec) [#/Vol] 3.47 10*3/uL 0.83-4.51 [facility] Automated lymphocyte count a s percentage of total leukocytesOrdered By: Maame Pinon on 09-11-2023 Lymphocytes/100 WBC Auto (Unsp spec) 38.3 % 19-41 [facility] Basophil percentageOrdered B y: Maame Pinon on 09-11-2023 Basophil percentage 13.1 g/dL 12.0-15.0 [facility] Basophils (Bld) [#/Vol] 9.1 10*3/uL 4.4-11.0 [facility] Basophils (Bld) [#/Vol] 4.6 10*3/uL 2.0-7.7 [facility] Basophils/100 WBC (Bld) 0.3 % 0-1 [facility] Basophils/100 WBC (Bld) 51.1 % 47-70 [facility] Basophils/100 WBC (Bld) 9.0 % 0-10 [facility] Basophils/100 WBC (Bld) 1.0 % 0-5 [facility] Eosinophils/100 WBC (Bld) 1.0 % 0-5 [facility] Hemoglobin (Bld) [Mass/Vol] 13.1 g/dL 12.0-15.0 [facility] Monocytes/100 WBC (Bld) 9.0 % 0-10 [facility] Neutrophils (Bld) [#/Vol] 4.6 10*3/uL 2.0-7.7 [facility] Neutrophils/100 WBC (Bld) 51.1 % 47-70 [facility] WBC (Bld) [#/Vol] 9.1 10*3/uL 4.4-11.0 [facility] Determination of erythrocyte mean corpuscular volume (MCV)Ordered By: Maame Pinon on 09-11-2023 MCV (RBC) [Entitic vol] 92.1 fL 81-99 [facility] Erythrocyte distribution wid th ratioOrdered By: Maame Pinon on 09-11-2023 Erythrocyte distribution width (RBC) [Ratio] 12.2 % 11.6-14.6 [facility] Erythrocyte distribution wid th standard deviationOrdered By: Maame Pinon on 09-11-2023 Erythrocyte distribution width (RBC) [Entitic vol] 41.3 fL 35.1-43.9 [facility] Hematocrit Auto (Bld) [Volum e fraction]Ordered By: Maame Pinon on 09-11-2023 Hematocrit (Bld) [Volume fraction] 38.6 % 37-47 [facility] Immature granulocytes/100 WB C Auto (Bld)Ordered By: Maame Pinon on 09-11-2023 Immature granulocytes/100 WBC (Bld) 0.300 % 0.0-0.9 [facility] Comment on above: IG% - Immature Granu locytes (promyelocytes, myelocytes and metamyelocytes) > 1% indicates that a LEFT SHIFT is Present. Laboratory - Hematology and Cell countsOrdered By: Maame Pinon on 09-11-2023 MCH (RBC) [Entitic mass] 31.3 pg 27.0-32.0 [facility] MCHC (RBC) [Mass/Vol] 33.9 g/dL 32-36 [facility] Comment on above: Delta: 31.8 on 09/09-0555 Nucleated RBC/100 WBC (Bld) [Ratio] 0 % 0-5 [facility] Platelet mean volume (Bld) [Entitic vol] 9.6 fL 6.2-12.0 [facility] Platelets (Bld) [#/Vol] 297 10*3/uL 150-450 [facility] No Panel InformationOrdered By: Maame Pinon on 09-11-2023 31.3 pg 27.0-32.0 [facility] 33.9 g/dL 32-36 [facility] 297 K/mm3 150-450 [facility] 9.6 fl 6.2-12.0 [facility] 0 % 0-5 [facility] RBC Auto (Bld) [#/Vol]Ordere d By: Maame Pinon on 09-11-2023 RBC (Bld) [#/Vol] 4.19 10*6/uL 4.2-5.4 [facility] Basophil percentageOrdered B y: Maame Pinon on 09-10-2023 Basophil percentage 3.1 mg/dL 2.5-4.9 [facility] Basophil percentage 95 mg/dL 74-106 [facility] Basophil percentage 6.0 g/dL 6.4-8.2 [facility] Basophil percentage 0.50 mg/dL 0.20-1.00 [facility] Basophil percentage 140 mmol/L 136-145 [facility] Basophil percentage 3.8 mmol/L 3.5-5.1 [facility] Basophil percentage 109 mmol/L 98-107 [facility] Bilirubin [Mass/Vol] 0.50 mg/dL 0.20-1.00 [facility] Comment on above: For patients on eltr ombopag therapy, use of Dimension [place] TBIL is not recommended. Chloride [Moles/Vol] 109 mmol/L 98-107 [facility] Glucose [Mass/Vol] 95 mg/dL 74-106 [facility] Potassium [Moles/Vol] 3.8 mmol/L 3.5-5.1 [facility] Protein [Mass/Vol] 6.0 g/dL 6.4-8.2 [facility] Sodium [Moles/Vol] 140 mmol/L 136-145 [facility] Blood manual differential co mment interpretation (narrative result)Ordered By: Maame Pinon on 09-10-2023 Manual differential comment Porter (Bld) [Interp] SCANNED [facility] Laboratory - Chemistry and C hemistry - challengeOrdered By: Maame Pinon on 09-10-2023 Albumin/Globulin [Mass ratio] 0.9 {ratio} 0.9-2.4 [facility] ALP [Catalytic activity/Vol] 104 U/L 45-117 [facility] ALT [Catalytic activity/Vol] 11 U/L - [facility] CO2 [Moles/Vol] 27.0 mmol/L 21.0-32.0 [facility] Globulin (S) [Mass/Vol] 3.1 g/dL 2.2-4.2 [facility] Magnesium [Mass/Vol] 2.1 mg/dL 1.6-2.6 [facility] Urea nitrogen/Creatinine [Mass ratio] 26.5 mg/mg 10-20 [facility] No Panel InformationOrdered By: Maaem Pinon on 09-10-2023 Estimated Creatinine Clearance Calc 27.75 ml/min [facility] Estimated GFR (MDRD) Amer 76 mL/min >60 [facility] Comment on above: GFR Calc Estimated GFR (MDRD) Non-Af Amer 63 mL/min >60 [facility] Comment on above: Non- GFR Calc 63 mL/min >60 [facility] 76 mL/min >60 [facility] 27.75 ml/min [facility] 26.5 RATIO 10-20 [facility] 3.1 g/dL 2.2-4.2 [facility] 0.9 RATIO 0.9-2.4 [facility] 104 U/L 45-117 [facility] 11 U/L - [facility] 2.1 mg/dL 1.6-2.6 [facility] 27.0 mmol/L 21.0-32.0 [facility] Serum or plasma calcium fran urement (mass/volume)Ordered By: Maame Pinon on 09-10-2023 Calcium [Mass/Vol] 8.7 mg/dL 8.5-10.1 [facility] Serum or plasma creatinine m easurement (mass/volume)Ordered By: Maame Pinon on 09-10-2023 Creatinine [Mass/Vol] 0.90 mg/dL 0.55-1.02 [facility] Comment on above: The validity of the calculated GFR & GFRAA in patients over 70 years has not been determined. Clinical correlation is essential. Serum or plasma urea nitroge n measurement (mass/volume)Ordered By: Maame Pinon on 09-10-2023 Urea nitrogen [Mass/Vol] 24 mg/dL 7-18 [facility] Thin prep Papanicolaou smear with manual screeningOrdered By: Maame Pinon on 09-10-2023 Thin prep Papanicolaou smear with manual screening 2.9 g/dL 3.2-5.0 [facility] Thin prep Papanicolaou smear with manual screening 38 U/L 15-37 [facility] Thin prep Papanicolaou smear with manual screening 4 5-15 [facility] Basophil percentageOrdered B y: Gonzalez Garza on 09-09-2023 Basophil percentage 0-5 SEEN /hpf 0-5 [facility] Bilirubin Test strip Ql (U)O rdered By: Gonzalez Garza on 09-09-2023 Bilirubin Ql (U) Negative Negative [facility] Ketones Test strip Ql (U)Ord ered By: Gonzalez Garza on 09-09-2023 Ketones Ql (U) 5 mg/dl Negative [facility] Mucus LM Ql (Urine sed)Order ed By: Gonzalez Garza on 09-09-2023 Mucus Ql (Urine sed) 0 SEEN /hpf [facility] Nitrite Test strip Ql (U)Ord ered By: Gonzalez Garza on 09-09-2023 Nitrite Ql (U) Negative Negative [facility] No Panel InformationOrdered By: Gonzalez Garza on 09-09-2023 Urine RBC 0 SEEN /hpf 0-5 [facility] 0 SEEN /hpf 0-5 [facility] Protein Test strip Ql (U)Ord ered By: Gonzalez Garza on 09-09-2023 Protein Ql (U) 15 mg/dl Negative [facility] Squamous epithelial cells de tection in urine sediment by light microscopyOrdered By: Gonzalez Garza on 09-09-2023 Epithelial cells.squamous LM Ql (Urine sed) 0 SEEN /hpf 5-10 [facility] Transitional cells detection in urine sediment by light microscopyOrdered By: Gonzalez Garza on 09-09-2023 Transitional cells LM Ql (Urine sed) 0 SEEN /hpf 0-5 [facility] Urine blood detectionOrdered By: Gonzalez Garza on 09-09-2023 RBC Ql (U) Negative Negative [facility] Urine clarityOrdered By: Edda Garza on 09-09-2023 Clarity (U) Clear Clear [facility] Urine color determinationOrd ered By: Gonzalez Garza on 09-09-2023 Color (U) Yellow Yellow [facility] Urine glucose detectionOrder ed By: Gonzalez Garza on 09-09-2023 Glucose Ql (U) Normal mg/dl Normal [facility] Urine leukocyte esterase det ection by dipstickOrdered By: Gonzalez Garza on 09-09-2023 Leukocyte esterase Test strip Ql (U) 25 /ul Negative [facility] Urine pHOrdered By: Gonzalez Rivera on 09-09-2023 pH (U) 6.5 [pH] 5.0 - 8.0 [facility] Urine sediment bacteria coun t by microscopy (number/high power field)Ordered By: Gonzalez Garza on 09-09-2023 Bacteria LM.HPF (Urine sed) [#/Area] 1 /[HPF] None Seen [facility] Urine sediment renal epithel ial cell count by microscopy (number/high power field)Ordered By: Gonzalez Garza on 09-09-2023 Epithelial cells.renal LM.HPF (Urine sed) [#/Area] 0 /[HPF] 0-5 [facility] Urine specific gravity measu rementOrdered By: Gonzalez Garza on 09-09-2023 Specific gravity (U) [Rel density] 1.020 1.002-1.030 [facility] Urine urobilinogen measureme ntOrdered By: Gonzalez Garza on 09-09-2023 Urobilinogen Ql (U) Normal mg/dl Normal [facility] Absolute lymphocyte countOrd ered By: Germán Benson on 09-08-2023 Lymphocytes Auto (Unsp spec) [#/Vol] 5.22 10*3/uL 0.83-4.51 [facility] Automated lymphocyte count a s percentage of total leukocytesOrdered By: Germán Benson on 09-08-2023 Lymphocytes/100 WBC Auto (Unsp spec) 35.9 % 19-41 [facility] Basophil percentageOrdered B y: Germán Benson on 09-08-2023 Basophils/100 WBC (Bld) 2.4 % 0-1 [facility] Chloride [Moles/Vol] 106 mmol/L 98-107 [facility] Eosinophils/100 WBC (Bld) 2.5 % 0-5 [facility] Glucose [Mass/Vol] 123 mg/dL 74-106 [facility] Comment on above: Fasting Glucose resu lt from 100 to 125 mg/dL suggests IMPAIRED HOMEOSTASIS per A.D.A. criteria. Hemoglobin (Bld) [Mass/Vol] 12.8 g/dL 12.0-15.0 [facility] Monocytes/100 WBC (Bld) 7.5 % 0-10 [facility] Neutrophils (Bld) [#/Vol] 7.5 10*3/uL 2.0-7.7 [facility] Neutrophils/100 WBC (Bld) 51.3 % 47-70 [facility] Potassium [Moles/Vol] 4.4 mmol/L 3.5-5.1 [facility] Comment on above: Slight Hemolysis, Re sult may be falsely increased. Sodium [Moles/Vol] 139 mmol/L 136-145 [facility] WBC (Bld) [#/Vol] 14.5 10*3/uL 4.4-11.0 [facility] Blood manual differential co mment interpretation (narrative result)Ordered By: Germán Benson on 09-08-2023 Manual differential comment Porter (Bld) [Interp] SCANNED [facility] Determination of erythrocyte mean corpuscular volume (MCV)Ordered By: Germán Benson on 09-08-2023 MCV (RBC) [Entitic vol] 94.0 fL 81-99 [facility] Erythrocyte distribution wid th ratioOrdered By: Germán Benson on 09-08-2023 Erythrocyte distribution width (RBC) [Ratio] 13.5 % 11.6-14.6 [facility] Erythrocyte distribution wid th standard deviationOrdered By: Germán Benson on 09-08-2023 Erythrocyte distribution width (RBC) [Entitic vol] 46.9 fL 35.1-43.9 [facility] Hematocrit Auto (Bld) [Volum e fraction]Ordered By: Germán Benson on 09-08-2023 Hematocrit (Bld) [Volume fraction] 40.8 % 37-47 [facility] Immature granulocytes/100 WB C Auto (Bld)Ordered By: Germán Benson on 09-08-2023 Immature granulocytes/100 WBC (Bld) 0.400 % 0.0-0.9 [facility] Comment on above: IG% - Immature Granu locytes (promyelocytes, myelocytes and metamyelocytes) > 1% indicates that a LEFT SHIFT is Present. Laboratory - Chemistry and C hemistry - challengeOrdered By: Germán Benson on 09-08-2023 CK [Catalytic activity/Vol] 65 U/L 26-192 [facility] CO2 [Moles/Vol] 26.0 mmol/L 21.0-32.0 [facility] Urea nitrogen/Creatinine [Mass ratio] 18.7 mg/mg 10-20 [facility] Laboratory - Hematology and Cell countsOrdered By: Germán Benson on 09-08-2023 MCH (RBC) [Entitic mass] 29.5 pg 27.0-32.0 [facility] MCHC (RBC) [Mass/Vol] 31.4 g/dL 32-36 [facility] Nucleated RBC/100 WBC (Bld) [Ratio] 0 % 0-5 [facility] Platelet mean volume (Bld) [Entitic vol] 9.7 fL 6.2-12.0 [facility] Platelets (Bld) [#/Vol] 329 10*3/uL 150-450 [facility] No Panel InformationOrdered By: Germán Benson on 09-08-2023 Estimated Creatinine Clearance Calc 21.72 ml/min [facility] Estimated GFR (MDRD) Amer 53 mL/min >60 [facility] Comment on above: GFR Calc Estimated GFR (MDRD) Non-Af Amer 44 mL/min >60 [facility] Comment on above: Non- GFR Calc Troponin I High Sensitivity 7 pg/mL 3.0-54.0 [facility] Comment on above: Please Note: New Shreya t Units and Gender Specific Reference Ranges. For more information see Policy Stat Procedure [place] High Sensitivity Troponin (TNIH) and attachments. 65 U/L 26-192 [facility] 7 pg/mL 3.0-54.0 [facility] [facility] RBC Auto (Bld) [#/Vol]Ordere d By: Germán Benson on 09-08-2023 RBC (Bld) [#/Vol] 4.34 10*6/uL 4.2-5.4 [facility] Serum or plasma calcium fran urement (mass/volume)Ordered By: Germán Benson on 09-08-2023 Calcium [Mass/Vol] 9.3 mg/dL 8.5-10.1 [facility] Serum or plasma creatinine m easurement (mass/volume)Ordered By: Germán Benson on 09-08-2023 Creatinine [Mass/Vol] 1.23 mg/dL 0.55-1.02 [facility] Comment on above: The validity of the calculated GFR & GFRAA in patients over 70 years has not been determined. Clinical correlation is essential. Serum or plasma urea nitroge n measurement (mass/volume)Ordered By: Germán Benson on 09-08-2023 Urea nitrogen [Mass/Vol] 23 mg/dL 7-18 [facility] Thin prep Papanicolaou smear with manual screeningOrdered By: Germán Benson on 09-08-2023 Thin prep Papanicolaou smear with manual screening 7 5-15 [facility] Culture, urineOrdered By: Keith Zimmerman on 08-21-2023 Bacteria identified Cx Nom (U) Culture exhibits no growth. [facility] Bacteria identified Cx Nom (U) Culture exhibits no growth. [facility] Absolute lymphocyte countOrd ered By: Howard Zimmerman on 08-20-2023 Lymphocytes Auto (Unsp spec) [#/Vol] 8.14 10*3/uL 0.83-4.51 [facility] Automated lymphocyte count a s percentage of total leukocytesOrdered By: Howard Zimmerman on 08-20-2023 Lymphocytes/100 WBC Auto (Unsp spec) 49.5 % 19-41 [facility] Basophil percentageOrdered B y: Howard Zimmerman on 08-20-2023 Basophil percentage 11.6 g/dL 12.0-15.0 [facility] Basophil percentage 106 mg/dL 74-106 [facility] Basophil percentage 138 mmol/L 136-145 [facility] Basophil percentage 4.4 mmol/L 3.5-5.1 [facility] Basophil percentage 107 mmol/L 98-107 [facility] Basophils (Bld) [#/Vol] 16.5 10*3/uL 4.4-11.0 [facility] Basophils (Bld) [#/Vol] 6.2 10*3/uL 2.0-7.7 [facility] Basophils/100 WBC (Bld) 2.7 % 0-1 [facility] Basophils/100 WBC (Bld) 37.3 % 47-70 [facility] Basophils/100 WBC (Bld) 8.4 % 0-10 [facility] Basophils/100 WBC (Bld) 1.8 % 0-5 [facility] Chloride [Moles/Vol] 107 mmol/L 98-107 [facility] Eosinophils/100 WBC (Bld) 1.8 % 0-5 [facility] Glucose [Mass/Vol] 106 mg/dL 74-106 [facility] Comment on above: Fasting Glucose resu lt from 100 to 125 mg/dL suggests IMPAIRED HOMEOSTASIS per A.D.A. criteria. Hemoglobin (Bld) [Mass/Vol] 11.6 g/dL 12.0-15.0 [facility] Monocytes/100 WBC (Bld) 8.4 % 0-10 [facility] Neutrophils (Bld) [#/Vol] 6.2 10*3/uL 2.0-7.7 [facility] Neutrophils/100 WBC (Bld) 37.3 % 47-70 [facility] Potassium [Moles/Vol] 4.4 mmol/L 3.5-5.1 [facility] Sodium [Moles/Vol] 138 mmol/L 136-145 [facility] WBC (Bld) [#/Vol] 16.5 10*3/uL 4.4-11.0 [facility] Blood manual differential co mment interpretation (narrative result)Ordered By: Howard Zimmerman on 08-20-2023 Manual differential comment Porter (Bld) [Interp] SCANNED [facility] Comment on above: LYMPHOCYTOSIS NOTED Determination of erythrocyte mean corpuscular volume (MCV)Ordered By: Howard Zimmerman on 08-20-2023 MCV (RBC) [Entitic vol] 94.1 fL 81-99 [facility] Erythrocyte distribution wid th ratioOrdered By: Howard Zimmerman on 08-20-2023 Erythrocyte distribution width (RBC) [Ratio] 13.9 % 11.6-14.6 [facility] Erythrocyte distribution wid th standard deviationOrdered By: Howard Zimmerman on 08-20-2023 Erythrocyte distribution width (RBC) [Entitic vol] 47.7 fL 35.1-43.9 [facility] Hematocrit Auto (Bld) [Volum e fraction]Ordered By: Howard Zimmerman on 08-20-2023 Hematocrit (Bld) [Volume fraction] 36.7 % 37-47 [facility] Immature granulocytes/100 WB C Auto (Bld)Ordered By: Howard Zimmerman on 08-20-2023 Immature granulocytes/100 WBC (Bld) 0.300 % 0.0-0.9 [facility] Comment on above: IG% - Immature Granu locytes (promyelocytes, myelocytes and metamyelocytes) > 1% indicates that a LEFT SHIFT is Present. Laboratory - Chemistry and C hemistry - challengeOrdered By: Howard Zimmerman 08-20-2023 CO2 [Moles/Vol] 27.0 mmol/L 21.0-32.0 [facility] Urea nitrogen/Creatinine [Mass ratio] 22.9 mg/mg 10-20 [facility] Laboratory - Hematology and Cell countsOrdered By: Howard Zimmerman 08-20-2023 MCH (RBC) [Entitic mass] 29.7 pg 27.0-32.0 [facility] MCHC (RBC) [Mass/Vol] 31.6 g/dL 32-36 [facility] Nucleated RBC/100 WBC (Bld) [Ratio] 0 % 0-5 [facility] Platelet mean volume (Bld) [Entitic vol] 11.9 fL 6.2-12.0 [facility] Platelets (Bld) [#/Vol] 207 10*3/uL 150-450 [facility] No Panel InformationOrdered By: Howard Zimmerman on 08-20-2023 Estimated GFR (MDRD) Amer 64 mL/min >60 [facility] Comment on above: GFR Calc Estimated GFR (MDRD) Non-Af Amer 53 mL/min >60 [facility] Comment on above: Non- GFR Calc 29.7 pg 27.0-32.0 [facility] 31.6 g/dL 32-36 [facility] 207 K/mm3 150-450 [facility] 11.9 fl 6.2-12.0 [facility] 0 % 0-5 [facility] 53 mL/min >60 [facility] 64 mL/min >60 [facility] 22.9 RATIO 10-20 [facility] 27.0 mmol/L 21.0-32.0 [facility] RBC Auto (Bld) [#/Vol]Ordere d By: Howard Zimmerman on 08-20-2023 RBC (Bld) [#/Vol] 3.90 10*6/uL 4.2-5.4 [facility] Serum or plasma calcium fran urement (mass/volume)Ordered By: Howard Zimmerman on 08-20-2023 Calcium [Mass/Vol] 9.0 mg/dL 8.5-10.1 [facility] Serum or plasma creatinine m easurement (mass/volume)Ordered By: Howard Zimmerman on 08-20-2023 Creatinine [Mass/Vol] 1.05 mg/dL 0.55-1.02 [facility] Comment on above: The validity of the calculated GFR & GFRAA in patients over 70 years has not been determined. Clinical correlation is essential. Serum or plasma urea nitroge n measurement (mass/volume)Ordered By: Howard Zimmerman on 08-20-2023 Urea nitrogen [Mass/Vol] 24 mg/dL 7-18 [facility] Thin prep Papanicolaou smear with manual screeningOrdered By: Howard Zimmerman on 08-20-2023 Thin prep Papanicolaou smear with manual screening 4 5-15 [facility] Absolute lymphocyte countOrd ered By: Umesh Velázquez on 07-28-2023 Lymphocytes Auto (Unsp spec) [#/Vol] 5.67 10*3/uL 0.83-4.51 [facility] Amorphous sediment detection in urine sediment by light microscopyOrdered By: Umesh Velázquez on 07-28-2023 Amorphous sediment LM Ql (Urine sed) 1+ [facility] Automated lymphocyte count a s percentage of total leukocytesOrdered By: Umesh Velázquez on 07-28-2023 Lymphocytes/100 WBC Auto (Unsp spec) 33.4 % 19-41 [facility] Basophil percentageOrdered B y: Umesh Velázquez on 07-28-2023 Basophil percentage 0 SEEN /hpf 0-5 [facility] Basophil percentage 12.4 g/dL 12.0-15.0 [facility] Basophil percentage 104 mg/dL 74-106 [facility] Basophil percentage 7.2 g/dL 6.4-8.2 [facility] Basophil percentage 0.70 mg/dL 0.20-1.00 [facility] Basophil percentage 137 mmol/L 136-145 [facility] Basophil percentage 4.2 mmol/L 3.5-5.1 [facility] Basophil percentage 103 mmol/L 98-107 [facility] Basophils (Bld) [#/Vol] 17.0 10*3/uL 4.4-11.0 [facility] Basophils (Bld) [#/Vol] 9.6 10*3/uL 2.0-7.7 [facility] Basophils/100 WBC (Bld) 1.9 % 0-1 [facility] Basophils/100 WBC (Bld) 56.7 % 47-70 [facility] Basophils/100 WBC (Bld) 7.1 % 0-10 [facility] Basophils/100 WBC (Bld) 0.4 % 0-5 [facility] Bilirubin [Mass/Vol] 0.70 mg/dL 0.20-1.00 [facility] Comment on above: For patients on eltr ombopag therapy, use of Dimension [place] TBIL is not recommended. Chloride [Moles/Vol] 103 mmol/L 98-107 [facility] Eosinophils/100 WBC (Bld) 0.4 % 0-5 [facility] Glucose [Mass/Vol] 104 mg/dL 74-106 [facility] Comment on above: Fasting Glucose resu lt from 100 to 125 mg/dL suggests IMPAIRED HOMEOSTASIS per A.D.A. criteria. Hemoglobin (Bld) [Mass/Vol] 12.4 g/dL 12.0-15.0 [facility] Monocytes/100 WBC (Bld) 7.1 % 0-10 [facility] Neutrophils (Bld) [#/Vol] 9.6 10*3/uL 2.0-7.7 [facility] Neutrophils/100 WBC (Bld) 56.7 % 47-70 [facility] Potassium [Moles/Vol] 4.2 mmol/L 3.5-5.1 [facility] Protein [Mass/Vol] 7.2 g/dL 6.4-8.2 [facility] Sodium [Moles/Vol] 137 mmol/L 136-145 [facility] WBC (Bld) [#/Vol] 17.0 10*3/uL 4.4-11.0 [facility] Bilirubin Test strip Ql (U)O rdered By: Umesh Velázquez on 07-28-2023 Bilirubin Ql (U) Negative Negative [facility] Blood manual differential co mment interpretation (narrative result)Ordered By: Umesh Velázquez on 07-28-2023 Manual differential comment Porter (Bld) [Interp] SCANNED [facility] Determination of erythrocyte mean corpuscular volume (MCV)Ordered By: Umesh Velázquez on 07-28-2023 MCV (RBC) [Entitic vol] 91.9 fL 81-99 [facility] Erythrocyte distribution wid th ratioOrdered By: Umesh Velázquez on 07-28-2023 Erythrocyte distribution width (RBC) [Ratio] 13.4 % 11.6-14.6 [facility] Erythrocyte distribution wid th standard deviationOrdered By: Umesh Velázquez on 07-28-2023 Erythrocyte distribution width (RBC) [Entitic vol] 45.3 fL 35.1-43.9 [facility] Hematocrit Auto (Bld) [Volum e fraction]Ordered By: Umesh Velázquez on 07-28-2023 Hematocrit (Bld) [Volume fraction] 37.4 % 37-47 [facility] Immature granulocytes/100 WB C Auto (Bld)Ordered By: Umesh Velázquez on 07-28-2023 Immature granulocytes/100 WBC (Bld) 0.500 % 0.0-0.9 [facility] Comment on above: IG% - Immature Granu locytes (promyelocytes, myelocytes and metamyelocytes) > 1% indicates that a LEFT SHIFT is Present. Ketones Test strip Ql (U)Ord ered By: Umesh Velázquez on 07-28-2023 Ketones Ql (U) Negative Negative [facility] Laboratory - Chemistry and C hemistry - challengeOrdered By: Umesh Velázquez on 07-28-2023 Albumin/Globulin [Mass ratio] 0.9 {ratio} 0.9-2.4 [facility] ALP [Catalytic activity/Vol] 148 U/L 45-117 [facility] ALT [Catalytic activity/Vol] 17 U/L 13-56 [facility] CO2 [Moles/Vol] 30.0 mmol/L 21.0-32.0 [facility] Globulin (S) [Mass/Vol] 3.7 g/dL 2.2-4.2 [facility] Urea nitrogen/Creatinine [Mass ratio] 22.7 mg/mg 10-20 [facility] Laboratory - Hematology and Cell countsOrdered By: Umesh Velázquez on 07-28-2023 MCH (RBC) [Entitic mass] 30.5 pg 27.0-32.0 [facility] MCHC (RBC) [Mass/Vol] 33.2 g/dL 32-36 [facility] Nucleated RBC/100 WBC (Bld) [Ratio] 0 % 0-5 [facility] Platelet mean volume (Bld) [Entitic vol] 10.3 fL 6.2-12.0 [facility] Platelets (Bld) [#/Vol] 402 10*3/uL 150-450 [facility] Mucus LM Ql (Urine sed)Order ed By: Umesh Velázquez on 07-28-2023 Mucus Ql (Urine sed) 0 SEEN /hpf [facility] Nitrite Test strip Ql (U)Ord ered By: Umesh Velázquez on 07-28-2023 Nitrite Ql (U) Negative Negative [facility] No Panel InformationOrdered By: Umesh Velázquez on 07-28-2023 Urine RBC 0 SEEN /hpf 0-5 [facility] 0 SEEN /hpf 0-5 [facility] Estimated Creatinine Clearance Calc 23.66 ml/min [facility] Estimated GFR (MDRD) Amer 55 mL/min >60 [facility] Comment on above: GFR Calc Estimated GFR (MDRD) Non-Af Amer 46 mL/min >60 [facility] Comment on above: Non- GFR Calc Reactive Lymphocytes 2+ [facility] 30.5 pg 27.0-32.0 [facility] 33.2 g/dL 32-36 [facility] 402 K/mm3 150-450 [facility] 10.3 fl 6.2-12.0 [facility] 0 % 0-5 [facility] 2+ [facility] 46 mL/min >60 [facility] 55 mL/min >60 [facility] 23.66 ml/min [facility] 22.7 RATIO 10-20 [facility] 3.7 g/dL 2.2-4.2 [facility] 0.9 RATIO 0.9-2.4 [facility] 148 U/L 45-117 [facility] 17 U/L 13-56 [facility] 30.0 mmol/L 21.0-32.0 [facility] Protein Test strip Ql (U)Ord ered By: Umesh Velázquez on 07-28-2023 Protein Ql (U) 15 mg/dl Negative [facility] RBC Auto (Bld) [#/Vol]Ordere d By: Umesh Velázquez on 07-28-2023 RBC (Bld) [#/Vol] 4.07 10*6/uL 4.2-5.4 [facility] Serum or plasma calcium fran urement (mass/volume)Ordered By: Umesh Velázquez on 07-28-2023 Calcium [Mass/Vol] 9.6 mg/dL 8.5-10.1 [facility] Serum or plasma creatinine m easurement (mass/volume)Ordered By: Umesh Velázquez on 07-28-2023 Creatinine [Mass/Vol] 1.19 mg/dL 0.55-1.02 [facility] Comment on above: The validity of the calculated GFR & GFRAA in patients over 70 years has not been determined. Clinical correlation is essential. Serum or plasma urea nitroge n measurement (mass/volume)Ordered By: Umesh Velázquez on 07-28-2023 Urea nitrogen [Mass/Vol] 27 mg/dL 7-18 [facility] Squamous epithelial cells de tection in urine sediment by light microscopyOrdered By: Umesh Velázquez on 07-28-2023 Epithelial cells.squamous LM Ql (Urine sed) 0 SEEN /hpf 5-10 [facility] Thin prep Papanicolaou smear with manual screeningOrdered By: Umesh Velázquez on 07-28-2023 Thin prep Papanicolaou smear with manual screening 3.5 g/dL 3.2-5.0 [facility] Thin prep Papanicolaou smear with manual screening 28 U/L 15-37 [facility] Thin prep Papanicolaou smear with manual screening 4 5-15 [facility] Urine blood detectionOrdered By: Umesh Velázquez on 07-28-2023 RBC Ql (U) Negative Negative [facility] Urine clarityOrdered By: Bebeto Velázquez on 07-28-2023 Clarity (U) Clear Clear [facility] Urine color determinationOrd ered By: Umesh Velázquez on 07-28-2023 Color (U) Yellow Yellow [facility] Urine glucose detectionOrder ed By: Umesh Velázquez on 07-28-2023 Glucose Ql (U) Normal mg/dl Normal [facility] Urine leukocyte esterase det ection by dipstickOrdered By: Umesh Velázquez on 07-28-2023 Leukocyte esterase Test strip Ql (U) Negative Negative [facility] Urine pHOrdered By: Umesh farmer on 07-28-2023 pH (U) 7.0 [pH] 5.0 - 8.0 [facility] Urine sediment bacteria coun t by microscopy (number/high power field)Ordered By: Umesh Velázquez on 07-28-2023 Bacteria LM.HPF (Urine sed) [#/Area] 0 /[HPF] None Seen [facility] Urine specific gravity measu rementOrdered By: Umesh Velázquez on 07-28-2023 Specific gravity (U) [Rel density] 1.010 1.002-1.030 [facility] Urine urobilinogen measureme ntOrdered By: Umesh Velázquez on 07-28-2023 Urobilinogen Ql (U) Normal mg/dl Normal [facility] Absolute lymphocyte countOrd ered By: Daisy Mack on 06-29-2023 Lymphocytes Auto (Unsp spec) [#/Vol] 5.59 10*3/uL 0.83-4.51 [facility] Basophil percentageOrdered B y: Daisy Mack on 06-29-2023 Basophil percentage 93 mg/dL 74-106 [facility] Basophil percentage 6.0 g/dL 6.4-8.2 [facility] Basophil percentage 0.40 mg/dL 0.20-1.00 [facility] Basophil percentage 210 mg/dL <200 [facility] Basophil percentage 134 mg/dL <199 [facility] Basophil percentage 139 mmol/L 136-145 [facility] Basophil percentage 4.0 mmol/L 3.5-5.1 [facility] Basophil percentage 107 mmol/L 98-107 [facility] Basophils (Bld) [#/Vol] 15.7 10*3/uL 4.4-11.0 [facility] Basophils (Bld) [#/Vol] 8.1 10*3/uL 2.0-7.7 [facility] Basophils/100 WBC (Bld) 2.2 % 0-1 [facility] Basophils/100 WBC (Bld) 51.9 % 47-70 [facility] Bilirubin [Mass/Vol] 0.40 mg/dL 0.20-1.00 [facility] Comment on above: For patients on eltr ombopag therapy, use of Dimension [place] TBIL is not recommended. Chloride [Moles/Vol] 107 mmol/L 98-107 [facility] Cholesterol [Mass/Vol] 210 mg/dL <200 [facility] Comment on above: <200 mg/dL Desirable 200-240 mg/dL Borderline >240 mg/dL High Risk Eosinophils/100 WBC (Bld) 2.2 % 0-5 [facility] Glucose [Mass/Vol] 93 mg/dL 74-106 [facility] Neutrophils (Bld) [#/Vol] 8.1 10*3/uL 2.0-7.7 [facility] Neutrophils/100 WBC (Bld) 51.9 % 47-70 [facility] Potassium [Moles/Vol] 4.0 mmol/L 3.5-5.1 [facility] Protein [Mass/Vol] 6.0 g/dL 6.4-8.2 [facility] Sodium [Moles/Vol] 139 mmol/L 136-145 [facility] Triglyceride [Mass/Vol] 134 mg/dL <199 [facility] Comment on above: The drugs N-Acetylcy steine and Metamizole may falsely depress this assay.Serum Triglycerides Reference Interval Normal <150 mg/dL Borderline high 150 - 199 mg/dL High 200 - 499 mg/dL Very High > or = 500 mg/dL WBC (Bld) [#/Vol] 15.7 10*3/uL 4.4-11.0 [facility] Blood erythrocytes count (nu mber/volume)Ordered By: Daisy Mack on 06-29-2023 RBC (Bld) [#/Vol] 4.27 10*6/uL 4.2-5.4 [facility] Blood hemoglobin measurement (mass/volume)Ordered By: Daisy Mack on 06-29-2023 Hemoglobin (Bld) [Mass/Vol] 12.7 g/dL 12.0-15.0 [facility] Blood lymphocytes/100 leukoc ytesOrdered By: Daisy Mack on 06-29-2023 Lymphocytes/100 WBC (Bld) 35.7 % 19-41 [facility] Blood manual differential co mment interpretation (narrative result)Ordered By: Daisy Mack on 06-29-2023 Manual differential comment Porter (Bld) [Interp] SCANNED [facility] Blood monocytes/100 leukocyt esOrdered By: Daisy Mack on 06-29-2023 Monocytes/100 WBC (Bld) 7.7 % 0-10 [facility] Blood platelet mean volumeOr dered By: Daisy Mack on 06-29-2023 Platelet mean volume (Bld) [Entitic vol] 9.4 fL 6.2-12.0 [facility] Determination of erythrocyte mean corpuscular volume (MCV)Ordered By: Daisy Mack on 06-29-2023 MCV (RBC) [Entitic vol] 91.6 fL 81-99 [facility] Hematocrit Auto (Bld) [Volum e fraction]Ordered By: Daisy Mack on 06-29-2023 Hematocrit (Bld) [Volume fraction] 39.1 % 37-47 [facility] Laboratory - Chemistry and C hemistry - challengeOrdered By: Daisy Mack on 06-29-2023 ALP [Catalytic activity/Vol] 91 U/L 45-117 [facility] ALT [Catalytic activity/Vol] 13 U/L 13-56 [facility] CO2 [Moles/Vol] 25.0 mmol/L 21.0-32.0 [facility] Globulin (S) [Mass/Vol] 3.1 g/dL 2.2-4.2 [facility] Urea nitrogen/Creatinine [Mass ratio] 24.0 mg/mg 10-20 [facility] Laboratory - Hematology and Cell countsOrdered By: Daisy Mack on 06-29-2023 Erythrocyte distribution width (RBC) [Entitic vol] 46.9 fL 35.1-43.9 [facility] Erythrocyte distribution width (RBC) [Ratio] 13.9 % 11.6-14.6 [facility] Immature granulocytes/100 WBC (Bld) 0.300 % 0.0-0.9 [facility] Comment on above: IG% - Immature Granu locytes (promyelocytes, myelocytes and metamyelocytes) > 1% indicates that a LEFT SHIFT is Present. MCH (RBC) [Entitic mass] 29.7 pg 27.0-32.0 [facility] Nucleated RBC/100 WBC (Bld) [Ratio] 0 % 0-5 [facility] MCHC Auto (RBC) [Mass/Vol]Or dered By: Daisy Mack on 06-29-2023 MCHC (RBC) [Mass/Vol] 32.5 g/dL 32-36 [facility] No Panel InformationOrdered By: Daisy Mack on 06-29-2023 Estimated Creatinine Clearance Calc 28.02 ml/min [facility] Estimated GFR (MDRD) Amer 74 mL/min >60 [facility] Comment on above: GFR Calc Estimated GFR (MDRD) Non-Af Amer 62 mL/min >60 [facility] Comment on above: Non- GFR Calc Thyroid Stimulating Hormone (TSH) 2.02 uIU/mL 0.358-3.74 [facility] 29.7 pg 27.0-32.0 [facility] 13.9 % 11.6-14.6 [facility] 46.9 fl 35.1-43.9 [facility] 0.300 % 0.0-0.9 [facility] 0 % 0-5 [facility] 62 mL/min >60 [facility] 74 mL/min >60 [facility] 28.02 ml/min [facility] 24.0 RATIO 10-20 [facility] 3.1 g/dL 2.2-4.2 [facility] 91 U/L 45-117 [facility] 13 U/L 13-56 [facility] 25.0 mmol/L 21.0-32.0 [facility] 2.02 uIU/mL 0.358-3.74 [facility] Platelets bldOrdered By: Denny Mack on 06-29-2023 Platelets (Bld) [#/Vol] 346 10*3/uL 150-450 [facility] Serum or plasma albumin fran urement (mass/volume)Ordered By: Daisy Mack on 06-29-2023 Albumin [Mass/Vol] 2.9 g/dL 3.2-5.0 [facility] Serum or plasma albumin/glob ulin mass ratioOrdered By: Daisy Mack on 06-29-2023 Albumin/Globulin [Mass ratio] 0.9 {ratio} 0.9-2.4 [facility] Serum or plasma calcium fran urement (mass/volume)Ordered By: Daisy Mack on 06-29-2023 Calcium [Mass/Vol] 8.7 mg/dL 8.5-10.1 [facility] Serum or plasma cholesterol in HDL measurement (mass/volume)Ordered By: Daisy Mack on 06-29-2023 Cholesterol in HDL [Mass/Vol] 57 mg/dL >40 [facility] Comment on above: The drugs N-Acetylcy steine and Metamizole may falsely depress this assay. Reference Range HDL <40 mg/dL Low HDL Cholesterol HDL >or= 60 mg/dL High HDL Cholesterol Serum or plasma cholesterol in VLDL measurement (mass/volume)Ordered By: Daisy Mack on 06-29-2023 Cholesterol in VLDL [Mass/Vol] 27 mg/dL 5-40 [facility] Serum or plasma creatinine m easurement (mass/volume)Ordered By: Daisy Mack on 06-29-2023 Creatinine [Mass/Vol] 0.92 mg/dL 0.55-1.02 [facility] Comment on above: The validity of the calculated GFR & GFRAA in patients over 70 years has not been determined. Clinical correlation is essential. Serum or plasma low density lipoprotein (LDL) cholesterol measurement (mass/volume)Ordered By: Daisy Mack on 06-29-2023 Cholesterol in LDL [Mass/Vol] 126 mg/dL 0-130 [facility] Serum or plasma urea nitroge n measurement (mass/volume)Ordered By: Daisy Frederick on 06-29-2023 Urea nitrogen [Mass/Vol] 22 mg/dL 7-18 [facility] Thin prep Papanicolaou smear with manual screeningOrdered By: Daisy Frederick on 06-29-2023 Thin prep Papanicolaou smear with manual screening 22 U/L 15-37 [facility] Thin prep Papanicolaou smear with manual screening 7 5-15 [facility] Whole blood hemoglobin A1c/t otal hemoglobin ratio (mass fraction)Ordered By: Daisy [place] on 06-29-2023 HbA1c (Bld) [Mass fraction] 5.3 % 3.8-5.6 [facility] Comment on above: Normal < 5.7 % Predi abetic 5.7 - 6.4 % Diabetic >or= 6.5 % Please note range changes. Absolute lymphocyte countOrd ered By: Myrna Munguia on 06-28-2023 Lymphocytes Auto (Unsp spec) [#/Vol] 7.62 10*3/uL 0.83-4.51 [facility] Basophil percentageOrdered B y: Myrna Munguia on 06-28-2023 Basophils/100 WBC (Bld) 2.6 % 0-1 [facility] Chloride [Moles/Vol] 103 mmol/L 98-107 [facility] Eosinophils/100 WBC (Bld) 2.3 % 0-5 [facility] Glucose [Mass/Vol] 91 mg/dL 74-106 [facility] Neutrophils (Bld) [#/Vol] 4.8 10*3/uL 2.0-7.7 [facility] Neutrophils/100 WBC (Bld) 33.4 % 47-70 [facility] Potassium [Moles/Vol] 4.1 mmol/L 3.5-5.1 [facility] Sodium [Moles/Vol] 137 mmol/L 136-145 [facility] WBC (Bld) [#/Vol] 14.4 10*3/uL 4.4-11.0 [facility] Blood erythrocytes count (nu mber/volume)Ordered By: Myrna Munguia on 06-28-2023 RBC (Bld) [#/Vol] 4.30 10*6/uL 4.2-5.4 [facility] Blood hemoglobin measurement (mass/volume)Ordered By: Myrna Munguia on 06-28-2023 Hemoglobin (Bld) [Mass/Vol] 12.8 g/dL 12.0-15.0 [facility] Blood lymphocytes/100 leukoc ytesOrdered By: Myrna Munguia on 06-28-2023 Lymphocytes/100 WBC (Bld) 53.0 % 19-41 [facility] Blood manual differential co mment interpretation (narrative result)Ordered By: Myrna Munguia on 06-28-2023 Manual differential comment Porter (Bld) [Interp] SCANNED [facility] Comment on above: LYMPHOCYTOSIS Blood monocytes/100 leukocyt esOrdered By: Myrna Munguia on 06-28-2023 Monocytes/100 WBC (Bld) 8.4 % 0-10 [facility] Blood platelet mean volumeOr dered By: Myrna Munguia on 06-28-2023 Platelet mean volume (Bld) [Entitic vol] 9.6 fL 6.2-12.0 [facility] Determination of erythrocyte mean corpuscular volume (MCV)Ordered By: Myrna Munguia on 06-28-2023 MCV (RBC) [Entitic vol] 93.5 fL 81-99 [facility] Glucose Glucometer (dC) [M ass/Vol]Ordered By: Myrna Munguia on 06-28-2023 Glucose [Mass/Vol] 78 mg/dL 74-106 [facility] Comment on above: MANAGEMENT OF PATIEN T CARE PER NURSING PROTOCOL Hematocrit Auto (Bld) [Volum e fraction]Ordered By: Myrna Munguia on 06-28-2023 Hematocrit (Bld) [Volume fraction] 40.2 % 37-47 [facility] INR in Blood by Coagulation assayOrdered By: Myrna Munguia on 06-28-2023 INR Coag (Bld) [Relative time] 1.0 {INR} [facility] Laboratory - Chemistry and C hemistry - challengeOrdered By: Myrna Munguia on 06-28-2023 CO2 [Moles/Vol] 29.0 mmol/L 21.0-32.0 [facility] Urea nitrogen/Creatinine [Mass ratio] 23.5 mg/mg 10-20 [facility] Laboratory - Chemistry and C hemistry - challengeOrdered By: Daisy Mack on 06-28-2023 Magnesium [Mass/Vol] 2.3 mg/dL 1.6-2.6 [facility] Laboratory - CoagulationOrde red By: Myrna Munguia on 06-28-2023 aPTT Coag (Bld) [Time] 27.6 s 24.1-36.2 [facility] PT Coag (PPP) [Time] 12.6 s 11.7-14.9 [facility] Laboratory - Hematology and Cell countsOrdered By: Myrna Munguia on 06-28-2023 Erythrocyte distribution width (RBC) [Entitic vol] 48.0 fL 35.1-43.9 [facility] Erythrocyte distribution width (RBC) [Ratio] 14.0 % 11.6-14.6 [facility] Immature granulocytes/100 WBC (Bld) 0.300 % 0.0-0.9 [facility] Comment on above: IG% - Immature Granu locytes (promyelocytes, myelocytes and metamyelocytes) > 1% indicates that a LEFT SHIFT is Present. MCH (RBC) [Entitic mass] 29.8 pg 27.0-32.0 [facility] Nucleated RBC/100 WBC (Bld) [Ratio] 0 % 0-5 [facility] MCHC Auto (RBC) [Mass/Vol]Or dered By: Myrna Munguia on 06-28-2023 MCHC (RBC) [Mass/Vol] 31.8 g/dL 32-36 [facility] No Panel InformationOrdered By: Myrna Munguia on 06-28-2023 Estimated Creatinine Clearance Calc 25.91 ml/min [facility] Estimated GFR (MDRD) Amer 66 mL/min >60 [facility] Comment on above: GFR Calc Estimated GFR (MDRD) Non-Af Amer 55 mL/min >60 [facility] Comment on above: Non- GFR Calc Reactive Lymphocytes 1+ [facility] Troponin I High Sensitivity 6 pg/mL 3.0-54.0 [facility] Comment on above: Please Note: New Shreya t Units and Gender Specific Reference Ranges. For more information see Policy Stat Procedure [place] High Sensitivity Troponin (TNIH) and attachments. 1+ [facility] 12.6 SECONDS 11.7-14.9 [facility] 27.6 Seconds 24.1-36.2 [facility] 6 pg/mL 3.0-54.0 [facility] No Panel InformationOrdered By: Daisy Mack on 06-28-2023 2.3 mg/dL 1.6-2.6 [facility] Platelets bldOrdered By: Estefani Munguia on 06-28-2023 Platelets (Bld) [#/Vol] 357 10*3/uL 150-450 [facility] Serum or plasma calcium fran urement (mass/volume)Ordered By: Myrna Munguia on 06-28-2023 Calcium [Mass/Vol] 9.2 mg/dL 8.5-10.1 [facility] Serum or plasma creatinine m easurement (mass/volume)Ordered By: Myrna Munguia on 06-28-2023 Creatinine [Mass/Vol] 1.02 mg/dL 0.55-1.02 [facility] Comment on above: The validity of the calculated GFR & GFRAA in patients over 70 years has not been determined. Clinical correlation is essential. Serum or plasma urea nitroge n measurement (mass/volume)Ordered By: Myrna Munguia on 06-28-2023 Urea nitrogen [Mass/Vol] 24 mg/dL 7-18 [facility] Thin prep Papanicolaou smear with manual screeningOrdered By: Myrna Munguia on 06-28-2023 Thin prep Papanicolaou smear with manual screening 5 5-15 [facility] Absolute lymphocyte countOrd ered By: Howard Zimmerman on 05-28-2023 Lymphocytes Auto (Unsp spec) [#/Vol] 7.42 10*3/uL 0.83-4.51 [facility] Basophil percentageOrdered B y: Howard Zimmerman on 05-28-2023 Basophils/100 WBC (Bld) 2.9 % 0-1 [facility] Bilirubin [Mass/Vol] 0.60 mg/dL 0.20-1.00 [facility] Comment on above: For patients on eltr ombopag therapy, use of Dimension [place] TBIL is not recommended. Chloride [Moles/Vol] 104 mmol/L 98-107 [facility] Eosinophils/100 WBC (Bld) 1.4 % 0-5 [facility] Glucose [Mass/Vol] 108 mg/dL 74-106 [facility] Comment on above: Fasting Glucose resu lt from 100 to 125 mg/dL suggests IMPAIRED HOMEOSTASIS per A.D.A. criteria. Neutrophils (Bld) [#/Vol] 5.4 10*3/uL 2.0-7.7 [facility] Neutrophils/100 WBC (Bld) 36.6 % 47-70 [facility] Potassium [Moles/Vol] 4.2 mmol/L 3.5-5.1 [facility] Protein [Mass/Vol] 6.9 g/dL 6.4-8.2 [facility] Sodium [Moles/Vol] 139 mmol/L 136-145 [facility] WBC (Bld) [#/Vol] 14.6 10*3/uL 4.4-11.0 [facility] Blood erythrocytes count (nu mber/volume)Ordered By: Howard Zimmerman on 05-28-2023 RBC (Bld) [#/Vol] 4.08 10*6/uL 4.2-5.4 [facility] Blood hemoglobin measurement (mass/volume)Ordered By: Howard Zimmerman on 05-28-2023 Hemoglobin (Bld) [Mass/Vol] 12.1 g/dL 12.0-15.0 [facility] Blood lymphocytes/100 leukoc ytesOrdered By: Howard Zimmerman on 05-28-2023 Lymphocytes/100 WBC (Bld) 50.7 % 19-41 [facility] Blood manual differential co mment interpretation (narrative result)Ordered By: Howard Zimmerman on 05-28-2023 Manual differential comment Porter (Bld) [Interp] See comment [facility] Comment on above: LYMPHOCYTOSIS NOTED Blood monocytes/100 leukocyt esOrdered By: Howard Zimmerman on 05-28-2023 Monocytes/100 WBC (Bld) 8.2 % 0-10 [facility] Blood platelet mean volumeOr dered By: Howard Zimmerman on 05-28-2023 Platelet mean volume (Bld) [Entitic vol] 10.3 fL 6.2-12.0 [facility] Determination of erythrocyte mean corpuscular volume (MCV)Ordered By: Howard Zimmerman on 05-28-2023 MCV (RBC) [Entitic vol] 94.9 fL 81-99 [facility] Hematocrit Auto (Bld) [Volum e fraction][facility] Hematocrit (Bld) [Volume fraction] 38.7 % 37-47 [facility] Laboratory - Chemistry and C hemistry - challengeOrdered By: [facility] ALP [Catalytic activity/Vol] 96 U/L 45-117 [facility] ALT [Catalytic activity/Vol] 14 U/L 13-56 [facility] CO2 [Moles/Vol] 31.0 mmol/L 21.0-32.0 [facility] Globulin (S) [Mass/Vol] 3.5 g/dL 2.2-4.2 [facility] Urea nitrogen/Creatinine [Mass ratio] 20.9 mg/mg 10-20 [facility] Laboratory - Hematology and Cell countsOrdered By: [facility] 05-28-20[facility] Erythrocyte distribution width (RBC) [Entitic vol] 48.9 fL 35.1-43.9 [facility] Erythrocyte distribution width (RBC) [Ratio] 14.0 % 11.6-14.6 [facility] Immature granulocytes/100 WBC (Bld) 0.200 % 0.0-0.9 [facility] Comment on above: IG% - Immature Granu locytes (promyelocytes, myelocytes and metamyelocytes) > 1% indicates that a LEFT SHIFT is Present. MCH (RBC) [Entitic mass] 29.7 pg 27.0-32.0 [facility] Nucleated RBC/100 WBC (Bld) [Ratio] 0 % 0-5 [facility] MCHC Auto (RBC) [Mass/Vol]Or dered By: Howard Zimmerman on 05-28-2023 MCHC (RBC) [Mass/Vol] 31.3 g/dL 32-36 [facility] No Panel InformationOrdered By: Howard Zimmerman on 05-28-2023 Estimated GFR (MDRD) Amer 57 mL/min >60 [facility] Comment on above: GFR Calc Estimated GFR (MDRD) Non-Af Amer 47 mL/min >60 [facility] Comment on above: Non- GFR Calc Thyroid Stimulating Hormone (TSH) 1.37 uIU/mL 0.358-3.74 [facility] Vitamin D 25-Hydroxy 46.6 ng/mL [facility] Comment on above: Vitamin D 25(OH) Sta tus Range Deficiency <20 ng/mL (50nmol/L) Insufficiency 20 - 30 ng/mL (50 - 75 nmol/L) Sufficiency 30 - 100 ng/mL (75 - 250 nmol/L) Toxicity >100 ng/mL (>250 nmol/L) Platelets bldOrdered By: Howard Zimmerman on 05-28-2023 Platelets (Bld) [#/Vol] 425 10*3/uL 150-450 [facility] Serum or plasma albumin fran urement (mass/volume)Ordered By: Howard Zimmerman on 05-28-2023 Albumin [Mass/Vol] 3.4 g/dL 3.2-5.0 [facility] Serum or plasma albumin/glob ulin mass ratioOrdered By: Howard Zimmerman on 05-28-2023 Albumin/Globulin [Mass ratio] 1.0 {ratio} 0.9-2.4 [facility] Serum or plasma calcium fran urement (mass/volume)Ordered By: Howard Zimmerman on 05-28-2023 Calcium [Mass/Vol] 8.8 mg/dL 8.5-10.1 [facility] Serum or plasma creatinine m easurement (mass/volume)Ordered By: Howard Zimmerman 05-28-2023 Creatinine [Mass/Vol] 1.15 mg/dL 0.55-1.02 [facility] Comment on above: The validity of the calculated GFR & GFRAA in patients over 70 years has not been determined. Clinical correlation is essential. Serum or plasma urea nitroge n measurement (mass/volume)Ordered By: Howard Zimmerman on 05-28-2023 Urea nitrogen [Mass/Vol] 24 mg/dL 7-18 [facility] Thin prep Papanicolaou smear with manual screeningOrdered By: Howard Zimmerman 05-28-2023 Thin prep Papanicolaou smear with manual screening 31 U/L 15-37 [facility] Thin prep Papanicolaou smear with manual screening 4 5-15 [facility] Laboratory - Microbiology an d Antimicrobial susceptibilityOrdered By: Howard Zimmerman on 05-15-2023 SARS-CoV-2 (COVID-19) RNA DEONTE+probe Ql (Unsp spec) SARS-CoV-2 (COVID 19 PCR) [facility] SARS-CoV-2 (COVID-19) RNA DEONTE+probe Ql (Unsp spec) SARS-CoV-2 (COVID 19 PCR) [facility] No Panel InformationOrdered By: Howard Zimmerman on 05-15-2023 Influenza Types A,B Direct FA (ARIANNA) [facility] Influenza Types A,B Direct FA (ARIANNA) [facility] RSV Ag EIAOrdered By: Howard almaraz on 05-15-2023 RSV Ag Immune stain Ql (Tiss) [facility] RSV Ag Immune stain Ql (Tiss) [facility] Absolute lymphocyte countOrd ered By: Howard Zimmerman on 05-14-2023 Lymphocytes Auto (Unsp spec) [#/Vol] 6.75 10*3/uL 0.83-4.51 [facility] Basophil percentageOrdered B y: Howard Zimmerman on 05-14-2023 Basophils/100 WBC (Bld) 2.8 % 0-1 [facility] Chloride [Moles/Vol] 103 mmol/L 98-107 [facility] Eosinophils/100 WBC (Bld) 0.3 % 0-5 [facility] Glucose [Mass/Vol] 112 mg/dL 74-106 [facility] Comment on above: Fasting Glucose resu lt from 100 to 125 mg/dL suggests IMPAIRED HOMEOSTASIS per A.D.A. criteria. Neutrophils (Bld) [#/Vol] 3.2 10*3/uL 2.0-7.7 [facility] Neutrophils/100 WBC (Bld) 26.9 % 47-70 [facility] Potassium [Moles/Vol] 4.1 mmol/L 3.5-5.1 [facility] Comment on above: Slight Hemolysis, Re sult may be falsely increased. Sodium [Moles/Vol] 139 mmol/L 136-145 [facility] WBC (Bld) [#/Vol] 11.8 10*3/uL 4.4-11.0 [facility] Blood erythrocytes count (nu mber/volume)Ordered By: Howard Zimmerman on 05-14-2023 RBC (Bld) [#/Vol] 4.26 10*6/uL 4.2-5.4 [facility] Blood hemoglobin measurement (mass/volume)Ordered By: Howard Zimmerman on 05-14-2023 Hemoglobin (Bld) [Mass/Vol] 12.8 g/dL 12.0-15.0 [facility] Blood lymphocytes/100 leukoc ytesOrdered By: Howard Zimmerman on 05-14-2023 Lymphocytes/100 WBC (Bld) 57.1 % 19-41 [facility] Blood manual differential co mment interpretation (narrative result)Ordered By: Howard Zimmerman on 05-14-2023 Manual differential comment Porter (Bld) [Interp] SCANNED [facility] Comment on above: LYMPHOCYTOSIS NOTED Blood monocytes/100 leukocyt esOrdered By: Howard Zimmerman on 05-14-2023 Monocytes/100 WBC (Bld) 12.6 % 0-10 [facility] Blood platelet mean volumeOr dered By: Howard Zimmerman on 05-14-2023 Platelet mean volume (Bld) [Entitic vol] 10.9 fL 6.2-12.0 [facility] Culture, urineOrdered By: Keith Zimmerman on 05-14-2023 Bacteria identified Cx Nom (U) Culture exhibits no growth. [facility] Bacteria identified Cx Nom (U) Culture exhibits no growth. [facility] Determination of erythrocyte mean corpuscular volume (MCV)Ordered By: Howard Zimmerman on 05-14-2023 MCV (RBC) [Entitic vol] 95.3 fL 81-99 [facility] Hematocrit Auto (Bld) [Volum e fraction]Ordered By: Howard Zimmerman on 05-14-2023 Hematocrit (Bld) [Volume fraction] 40.6 % 37-47 [facility] Laboratory - Chemistry and C hemistry - challengeOrdered By: Howard Zimmerman on 05-14-2023 CO2 [Moles/Vol] 28.0 mmol/L 21.0-32.0 [facility] Urea nitrogen/Creatinine [Mass ratio] 15.8 mg/mg 10-20 [facility] Laboratory - Hematology and Cell countsOrdered By: Howard Zimmerman on 05-14-2023 Erythrocyte distribution width (RBC) [Entitic vol] 50.0 fL 35.1-43.9 [facility] Erythrocyte distribution width (RBC) [Ratio] 14.2 % 11.6-14.6 [facility] Immature granulocytes/100 WBC (Bld) 0.300 % 0.0-0.9 [facility] Comment on above: IG% - Immature Granu locytes (promyelocytes, myelocytes and metamyelocytes) > 1% indicates that a LEFT SHIFT is Present. MCH (RBC) [Entitic mass] 30.0 pg 27.0-32.0 [facility] Nucleated RBC/100 WBC (Bld) [Ratio] 0 % 0-5 [facility] MCHC Auto (RBC) [Mass/Vol]Or dered By: Howard Zimmerman on 05-14-2023 MCHC (RBC) [Mass/Vol] 31.5 g/dL 32-36 [facility] No Panel InformationOrdered By: Howard Zimmerman on 05-14-2023 Estimated GFR (MDRD) Amer 49 mL/min >60 [facility] Comment on above: GFR Calc Estimated GFR (MDRD) Non-Af Amer 40 mL/min >60 [facility] Comment on above: Non- GFR Calc Platelets bldOrdered By: Howard Zimmerman on 05-14-2023 Platelets (Bld) [#/Vol] 333 10*3/uL 150-450 [facility] Serum or plasma calcium fran urement (mass/volume)Ordered By: Howard Zimmerman on 05-14-2023 Calcium [Mass/Vol] 8.5 mg/dL 8.5-10.1 [facility] Serum or plasma creatinine m easurement (mass/volume)Ordered By: Howard Zimmerman on 05-14-2023 Creatinine [Mass/Vol] 1.33 mg/dL 0.55-1.02 [facility] Comment on above: The validity of the calculated GFR & GFRAA in patients over 70 years has not been determined. Clinical correlation is essential. Serum or plasma urea nitroge n measurement (mass/volume)Ordered By: Howard Zimmerman on 05-14-2023 Urea nitrogen [Mass/Vol] 21 mg/dL 7-18 [facility] Thin prep Papanicolaou smear with manual screeningOrdered By: Hoawrd Zimmerman on 05-14-2023 Thin prep Papanicolaou smear with manual screening 8 5-15 [facility] No Panel InformationOrdered By: Adam Alonso on 05-08-2023 Miscellaneous Test See comment [facility] Comment on above: [facility]. Absolute lymphocyte countOrd ered By: Howard Zimmerman on 04-02-2023 Lymphocytes Auto (Unsp spec) [#/Vol] 8.16 10*3/uL 0.83-4.51 [facility] Basophil percentageOrdered B y: Howard Zimmerman on 04-02-2023 Basophils/100 WBC (Bld) 2.5 % 0-1 [facility] Bilirubin [Mass/Vol] 0.50 mg/dL 0.20-1.00 [facility] Comment on above: For patients on eltr ombopag therapy, use of Dimension [place] TBIL is not recommended. Chloride [Moles/Vol] 103 mmol/L 98-107 [facility] Eosinophils/100 WBC (Bld) 0.9 % 0-5 [facility] Glucose [Mass/Vol] 102 mg/dL 74-106 [facility] Comment on above: Fasting Glucose resu lt from 100 to 125 mg/dL suggests IMPAIRED HOMEOSTASIS per A.D.A. criteria. Neutrophils (Bld) [#/Vol] 7.1 10*3/uL 2.0-7.7 [facility] Neutrophils/100 WBC (Bld) 41.0 % 47-70 [facility] Potassium [Moles/Vol] 4.1 mmol/L 3.5-5.1 [facility] Protein [Mass/Vol] 6.8 g/dL 6.4-8.2 [facility] Sodium [Moles/Vol] 137 mmol/L 136-145 [facility] WBC (Bld) [#/Vol] 17.4 10*3/uL 4.4-11.0 [facility] Blood erythrocytes count (nu mber/volume)Ordered By: Howard Zimmerman on 04-02-2023 RBC (Bld) [#/Vol] 4.08 10*6/uL 4.2-5.4 [facility] Blood hemoglobin measurement (mass/volume)Ordered By: Howard Zimmerman on 04-02-2023 Hemoglobin (Bld) [Mass/Vol] 12.1 g/dL 12.0-15.0 [facility] Blood lymphocytes/100 leukoc ytesOrdered By: Howard Zimmerman on 04-02-2023 Lymphocytes/100 WBC (Bld) 46.9 % 19-41 [facility] Blood manual differential co mment interpretation (narrative result)Ordered By: Howard Erasmo on 04-02-2023 Manual differential comment Porter (Bld) [Interp] COMMENT [facility] Comment on above: LYMPHOCYTOSIS. Blood monocytes/100 leukocyt esOrdered By: Howard Zimmerman on 04-02-2023 Monocytes/100 WBC (Bld) 8.3 % 0-10 [facility] Blood platelet mean volumeOr dered By: Howard Zimmerman on 04-02-2023 Platelet mean volume (Bld) [Entitic vol] 9.8 fL 6.2-12.0 [facility] Determination of erythrocyte mean corpuscular volume (MCV)Ordered By: Howard Zimmerman on 04-02-2023 MCV (RBC) [Entitic vol] 94.1 fL 81-99 [facility] Hematocrit Auto (Bld) [Volum e fraction]Ordered By: Howard Zimmerman on 04-02-2023 Hematocrit (Bld) [Volume fraction] 38.4 % 37-47 [facility] Laboratory - Chemistry and C hemistry - challengeOrdered By: Howard Zimmerman on 04-02-2023 ALP [Catalytic activity/Vol] 91 U/L 45-117 [facility] ALT [Catalytic activity/Vol] 8 U/L 13-56 [facility] CO2 [Moles/Vol] 29.0 mmol/L 21.0-32.0 [facility] Globulin (S) [Mass/Vol] 3.3 g/dL 2.2-4.2 [facility] Urea nitrogen/Creatinine [Mass ratio] 18.3 mg/mg 10-20 [facility] Laboratory - Hematology and Cell countsOrdered By: Howard Zimmerman on 04-02-2023 Erythrocyte distribution width (RBC) [Entitic vol] 47.0 fL 35.1-43.9 [facility] Erythrocyte distribution width (RBC) [Ratio] 13.6 % 11.6-14.6 [facility] Immature granulocytes/100 WBC (Bld) 0.400 % 0.0-0.9 [facility] Comment on above: IG% - Immature Granu locytes (promyelocytes, myelocytes and metamyelocytes) > 1% indicates that a LEFT SHIFT is Present. MCH (RBC) [Entitic mass] 29.7 pg 27.0-32.0 [facility] Nucleated RBC/100 WBC (Bld) [Ratio] 0 % 0-5 [facility] MCHC Auto (RBC) [Mass/Vol]Or dered By: Howard Zimmerman on 04-02-2023 MCHC (RBC) [Mass/Vol] 31.5 g/dL 32-36 [facility] No Panel InformationOrdered By: Howard Zimmerman on 04-02-2023 Estimated GFR (MDRD) Amer 55 mL/min >60 [facility] Comment on above: GFR Calc Estimated GFR (MDRD) Non-Af Amer 45 mL/min >60 [facility] Comment on above: Non- GFR Calc Platelets bldOrdered By: Howard Zimmerman on 04-02-2023 Platelets (Bld) [#/Vol] 349 10*3/uL 150-450 [facility] Serum or plasma albumin fran urement (mass/volume)Ordered By: Howard Zimmerman on 04-02-2023 Albumin [Mass/Vol] 3.5 g/dL 3.2-5.0 [facility] Serum or plasma albumin/glob ulin mass ratioOrdered By: Howard Zimmerman on 04-02-2023 Albumin/Globulin [Mass ratio] 1.1 {ratio} 0.9-2.4 [facility] Serum or plasma calcium fran urement (mass/volume)Ordered By: Howard Zimmerman on 04-02-2023 Calcium [Mass/Vol] 9.0 mg/dL 8.5-10.1 [facility] Serum or plasma creatinine m easurement (mass/volume)Ordered By: Howard Zimmerman on 04-02-2023 Creatinine [Mass/Vol] 1.20 mg/dL 0.55-1.02 [facility] Comment on above: The validity of the calculated GFR & GFRAA in patients over 70 years has not been determined. Clinical correlation is essential. 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 No findings to explain the tongue biting or changes seen on the EEG. Parkinson's doesn't cause any MRI changes Ayanna Garza RN 03/19/2023 8:50 AM Signed Spoke with patient, message from provider given Allergies As of Date: 03/18/2023 Noted Allergy Reaction environmental [Other] 05/15/2005 Comments: Patient has seasonal allergies PENICILLINS 05/15/2005 2 - Rash TRAMADOL 01/10/2007 8 - GI Upset Date Reviewed: 02/13/2023 Reviewed by: Darren Armando Ma - Fully Assessed Prescriptions as of 03/19/2023 - carbidopa-levodopa (SINEMET) 25-100 mg per tablet 2 tablet 3 times a day at 8am, 1pm and 6pm - psyllium husk (METAMUCIL ORAL) Take 1 teaspoonful by mouth once daily as needed. - metoprolol tartrate, short acting, (LOPRESSOR) 12.5 mg tab Take 12.5 mg by mouth twice daily. - MULTIVITAMIN ORAL Take by mouth once daily. - Ascorbic Acid 1,000 mg tablet Take by mouth once daily. 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 Absolute lymphocyte countOrd ered By: Howard Zimmerman on 02-21-2023 Lymphocytes Auto (Unsp spec) [#/Vol] 6.55 10*3/uL 0.83-4.51 [facility] Basophil percentageOrdered B y: Howard Zimmerman on 02-21-2023 Basophils/100 WBC (Bld) 2.3 % 0-1 [facility] Bilirubin [Mass/Vol] 0.70 mg/dL 0.20-1.00 [facility] Comment on above: For patients on eltr ombopag therapy, use of Dimension [place] TBIL is not recommended. Chloride [Moles/Vol] 102 mmol/L 98-107 [facility] Eosinophils/100 WBC (Bld) 2.3 % 0-5 [facility] Glucose [Mass/Vol] 94 mg/dL 74-106 [facility] Neutrophils (Bld) [#/Vol] 7.3 10*3/uL 2.0-7.7 [facility] Neutrophils/100 WBC (Bld) 45.2 % 47-70 [facility] Potassium [Moles/Vol] 3.8 mmol/L 3.5-5.1 [facility] Protein [Mass/Vol] 7.1 g/dL 6.4-8.2 [facility] Sodium [Moles/Vol] 137 mmol/L 136-145 [facility] WBC (Bld) [#/Vol] 16.3 10*3/uL 4.4-11.0 [facility] Blood erythrocytes count (nu mber/volume)Ordered By: Howard Zimmerman on 02-21-2023 RBC (Bld) [#/Vol] 4.25 10*6/uL 4.2-5.4 [facility] Blood hemoglobin measurement (mass/volume)Ordered By: Howard Zimmerman on 02-21-2023 Hemoglobin (Bld) [Mass/Vol] 12.7 g/dL 12.0-15.0 [facility] Blood lymphocytes/100 leukoc ytesOrdered By: Howard Zimmerman on 02-21-2023 Lymphocytes/100 WBC (Bld) 40.3 % 19-41 [facility] Blood manual differential co mment interpretation (narrative result)Ordered By: Howard Zimmerman on 02-21-2023 Manual differential comment Porter (Bld) [Interp] COMMENT [facility] Comment on above: LYMPHOCYTOSIS.MONOCY TOSIS. Blood monocytes/100 leukocyt esOrdered By: Howard Zimmerman on 02-21-2023 Monocytes/100 WBC (Bld) 9.5 % 0-10 [facility] Blood platelet mean volumeOr dered By: Howard Zimmerman on 02-21-2023 Platelet mean volume (Bld) [Entitic vol] 9.5 fL 6.2-12.0 [facility] Determination of erythrocyte mean corpuscular volume (MCV)Ordered By: Howard Zimmerman on 02-21-2023 MCV (RBC) [Entitic vol] 94.8 fL 81-99 [facility] Hematocrit Auto (Bld) [Volum e fraction]Ordered By: Howard Zimmerman on 02-21-2023 Hematocrit (Bld) [Volume fraction] 40.3 % 37-47 [facility] Laboratory - Chemistry and C hemistry - challengeOrdered By: Howard Zimmerman on 02-21-2023 ALP [Catalytic activity/Vol] 110 U/L 45-117 [facility] ALT [Catalytic activity/Vol] 13 U/L 13-56 [facility] CO2 [Moles/Vol] 28.0 mmol/L 21.0-32.0 [facility] Globulin (S) [Mass/Vol] 3.5 g/dL 2.2-4.2 [facility] Urea nitrogen/Creatinine [Mass ratio] 17.1 mg/mg 10-20 [facility] Laboratory - Hematology and Cell countsOrdered By: Howard Zimmerman on 02-21-2023 Erythrocyte distribution width (RBC) [Entitic vol] 46.6 fL 35.1-43.9 [facility] Erythrocyte distribution width (RBC) [Ratio] 13.4 % 11.6-14.6 [facility] Immature granulocytes/100 WBC (Bld) 0.400 % 0.0-0.9 [facility] Comment on above: IG% - Immature Granu locytes (promyelocytes, myelocytes and metamyelocytes) > 1% indicates that a LEFT SHIFT is Present. MCH (RBC) [Entitic mass] 29.9 pg 27.0-32.0 [facility] Nucleated RBC/100 WBC (Bld) [Ratio] 0 % 0-5 [facility] MCHC Auto (RBC) [Mass/Vol]Or dered By: Howard Zimmerman on 02-21-2023 MCHC (RBC) [Mass/Vol] 31.5 g/dL 32-36 [facility] No Panel InformationOrdered By: Howard Zimmerman on 02-21-2023 Estimated GFR (MDRD) Amer 53 mL/min >60 [facility] Comment on above: GFR Calc Estimated GFR (MDRD) Non-Af Amer 44 mL/min >60 [facility] Comment on above: Non- GFR Calc Thyroid Stimulating Hormone (TSH) 2.25 uIU/mL 0.358-3.74 [facility] Vitamin D 25-Hydroxy 57.4 ng/mL [facility] Comment on above: Vitamin D 25(OH) Sta tus Range Deficiency <20 ng/mL (50nmol/L) Insufficiency 20 - 30 ng/mL (50 - 75 nmol/L) Sufficiency 30 - 100 ng/mL (75 - 250 nmol/L) Toxicity >100 ng/mL (>250 nmol/L) Platelets bldOrdered By: Howard Zimmerman on 02-21-2023 Platelets (Bld) [#/Vol] 372 10*3/uL 150-450 [facility] Review by pathologistOrdered By: Howard Zimmerman on 02-21-2023 Pathologist review Porter (Unsp spec) [Interp] Reviewed [facility] Comment on above: Previous reported re sult: Heide mckenna Edited by: BINA on 02/22/23:1321Leukocytosis.Clinical correlation necessary.Nilton Flaherty M.D. 02/22/23 AMENDED REPORT 02/22/23 1321 PATH REV previously reported as: October bala Serum or plasma albumin fran urement (mass/volume)Ordered By: Howard Zimmerman on 02-21-2023 Albumin [Mass/Vol] 3.6 g/dL 3.2-5.0 [facility] Serum or plasma albumin/glob ulin mass ratioOrdered By: Howard Zimmerman on 02-21-2023 Albumin/Globulin [Mass ratio] 1.0 {ratio} 0.9-2.4 [facility] Serum or plasma calcium fran urement (mass/volume)Ordered By: Howard Zimmerman on 02-21-2023 Calcium [Mass/Vol] 9.1 mg/dL 8.5-10.1 [facility] Serum or plasma creatinine m easurement (mass/volume)Ordered By: Howard Zimmerman on 02-21-2023 Creatinine [Mass/Vol] 1.23 mg/dL 0.55-1.02 [facility] Comment on above: The validity of the calculated GFR & GFRAA in patients over 70 years has not been determined. Clinical correlation is essential. Serum or plasma urea nitroge n measurement (mass/volume)Ordered By: Howard Zimmerman on 02-21-2023 Urea nitrogen [Mass/Vol] 21 mg/dL 7-18 [facility] Thin prep Papanicolaou smear with manual screeningOrdered By: Howard Zimmerman on 02-21-2023 Thin prep Papanicolaou smear with manual screening 28 U/L 15-37 [facility] Thin prep Papanicolaou smear with manual screening 7 5-15 [facility] Basophil percentageOrdered B y: Gonzalez Garza on 01-16-2023 Cholesterol [Mass/Vol] 187 mg/dL <200 [facility] Comment on above: <200 mg/dL Desirable 200-240 mg/dL Borderline >240 mg/dL High Risk Triglyceride [Mass/Vol] 129 mg/dL <199 [facility] Comment on above: The drugs N-Acetylcy steine and Metamizole may falsely depress this assay.Serum Triglycerides Reference Interval Normal <150 mg/dL Borderline high 150 - 199 mg/dL High 200 - 499 mg/dL Very High > or = 500 mg/dL Serum or plasma cholesterol in HDL measurement (mass/volume)Ordered By: Gonzalez Garza on 01-16-2023 Cholesterol in HDL [Mass/Vol] 59 mg/dL >40 [facility] Comment on above: The drugs N-Acetylcy steine and Metamizole may falsely depress this assay. Reference Range HDL <40 mg/dL Low HDL Cholesterol HDL >or= 60 mg/dL High HDL Cholesterol Serum or plasma cholesterol in VLDL measurement (mass/volume)Ordered By: Gonzalez Garza on 01-16-2023 Cholesterol in VLDL [Mass/Vol] 26 mg/dL 5-40 [facility] Serum or plasma low density lipoprotein (LDL) cholesterol measurement (mass/volume)Ordered By: Gonzalez Garza on 01-16-2023 Cholesterol in LDL [Mass/Vol] 102 mg/dL 0-130 [facility] Absolute lymphocyte countOrd ered By: Stephanie Gonzalez on 01-15-2023 Lymphocytes Auto (Unsp spec) [#/Vol] 4.97 10*3/uL 0.83-4.51 [facility] Basophil percentageOrdered B y: Stephanie Gonzalez on 01-15-2023 Basophils/100 WBC (Bld) 2.4 % 0-1 [facility] Chloride [Moles/Vol] 102 mmol/L 98-107 [facility] Eosinophils/100 WBC (Bld) 1.3 % 0-5 [facility] Glucose [Mass/Vol] 153 mg/dL 74-106 [facility] Comment on above: Fasting Glucose resu lt greater than or equal to 126 mg/dL suggests DIABETES MELLITUS per A.D.A. criteria. Neutrophils (Bld) [#/Vol] 5.6 10*3/uL 2.0-7.7 [facility] Neutrophils/100 WBC (Bld) 45.8 % 47-70 [facility] Potassium [Moles/Vol] 3.9 mmol/L 3.5-5.1 [facility] Sodium [Moles/Vol] 134 mmol/L 136-145 [facility] WBC (Bld) [#/Vol] 12.2 10*3/uL 4.4-11.0 [facility] Blood erythrocytes count (nu mber/volume)Ordered By: Stephanie Gonzalez on 01-15-2023 RBC (Bld) [#/Vol] 3.67 10*6/uL 4.2-5.4 [facility] Blood hemoglobin measurement (mass/volume)Ordered By: Stephanie Gonzalez on 01-15-2023 Hemoglobin (Bld) [Mass/Vol] 11.4 g/dL 12.0-15.0 [facility] Blood lymphocytes/100 leukoc ytesOrdered By: Stephanie Gonzalez on 01-15-2023 Lymphocytes/100 WBC (Bld) 40.9 % 19-41 [facility] Blood monocytes/100 leukocyt esOrdered By: Stephanie Gonzalez on 01-15-2023 Monocytes/100 WBC (Bld) 9.2 % 0-10 [facility] Blood platelet mean volumeOr dered By: Stephanie Gonzalez on 01-15-2023 Platelet mean volume (Bld) [Entitic vol] 9.0 fL 6.2-12.0 [facility] Determination of erythrocyte mean corpuscular volume (MCV)Ordered By: Stephanie Gonzalez on 01-15-2023 MCV (RBC) [Entitic vol] 93.7 fL 81-99 [facility] Hematocrit Auto (Bld) [Volum e fraction]Ordered By: Stephanie Gonzalez on 01-15-2023 Hematocrit (Bld) [Volume fraction] 34.4 % 37-47 [facility] INR in Blood by Coagulation assayOrdered By: Stephanie Gonzalez on 01-15-2023 INR Coag (Bld) [Relative time] 1.1 {INR} [facility] Laboratory - Chemistry and C hemistry - challengeOrdered By: Stephanie Gonzalez on 01-15-2023 CO2 [Moles/Vol] 29.0 mmol/L 21.0-32.0 [facility] Urea nitrogen/Creatinine [Mass ratio] 15.8 mg/mg 10-20 [facility] Laboratory - CoagulationOrde red By: Stephanie Gonzalez on 01-15-2023 aPTT Coag (Bld) [Time] 25.4 s 24.1-36.2 [facility] PT Coag (PPP) [Time] 14.1 s 11.7-14.9 [facility] Laboratory - Hematology and Cell countsOrdered By: Stephanie Gonzalez on 01-15-2023 Erythrocyte distribution width (RBC) [Entitic vol] 46.2 fL 35.1-43.9 [facility] Erythrocyte distribution width (RBC) [Ratio] 13.4 % 11.6-14.6 [facility] Immature granulocytes/100 WBC (Bld) 0.400 % 0.0-0.9 [facility] Comment on above: IG% - Immature Granu locytes (promyelocytes, myelocytes and metamyelocytes) > 1% indicates that a LEFT SHIFT is Present. MCH (RBC) [Entitic mass] 31.1 pg 27.0-32.0 [facility] Nucleated RBC/100 WBC (Bld) [Ratio] 0 % 0-5 [facility] MCHC Auto (RBC) [Mass/Vol]Or dered By: Stephanie Gonzalez on 01-15-2023 MCHC (RBC) [Mass/Vol] 33.1 g/dL 32-36 [facility] No Panel InformationOrdered By: Stephanie Gonzalez on 01-15-2023 Estimated Creatinine Clearance Calc 21.86 ml/min [facility] Estimated GFR (MDRD) Amer 49 mL/min >60 [facility] Comment on above: GFR Calc Estimated GFR (MDRD) Non-Af Amer 40 mL/min >60 [facility] Comment on above: Non- GFR Calc Troponin I High Sensitivity 5 pg/mL 3.0-54.0 [facility] Comment on above: Please Note: New Shreya t Units and Gender Specific Reference Ranges. For more information see Policy Stat Procedure [place] High Sensitivity Troponin (TNIH) and attachments. Platelets bldOrdered By: Ary Gonzalez on 01-15-2023 Platelets (Bld) [#/Vol] 313 10*3/uL 150-450 [facility] Serum or plasma calcium fran urement (mass/volume)Ordered By: Stephanie Gonzalez on 01-15-2023 Calcium [Mass/Vol] 8.2 mg/dL 8.5-10.1 [facility] Serum or plasma creatinine m easurement (mass/volume)Ordered By: Stephanie Gonzalez on 01-15-2023 Creatinine [Mass/Vol] 1.33 mg/dL 0.55-1.02 [facility] Comment on above: The validity of the calculated GFR & GFRAA in patients over 70 years has not been determined. Clinical correlation is essential. Serum or plasma urea nitroge n measurement (mass/volume)Ordered By: Stephanie Gonzalez on 01-15-2023 Urea nitrogen [Mass/Vol] 21 mg/dL 7-18 [facility] Thin prep Papanicolaou smear with manual screeningOrdered By: Stephanie Gonzalez on 01-15-2023 Thin prep Papanicolaou smear with manual screening 3 5-15 [facility] COVID-19 virus antigen assay Ordered By: Dr. Zimmerman on 12-08-2022 SARS-CoV-2 (COVID-19) Ag IA.rapid Ql (Resp) Not detected Not Detect [facility] Comment on above: Normal Reference Ran ge: Not DetectedMethod:(RT-PCR) real-time reverse transcriptase PCRLuminex THOMAS Instrument*The Food and Drug Administration (FDA) has issued an Emergency Use Authorization (EAU) for the THOMAS SARS-CoV-2 Assay for the rapid detection of the virus that causes COVID-19. This test has been validated, but the FDAs independent review of this validation is pending.*Negative results do not preclude infection and should not be used as the sole basis for treatment or patient management. Optimum specimen types and timing for peak viral levels during infections caused by SARS-CoV-2 have not been determined. Collection of multiple specimens from the same patient may be necessary to detect the virus. The possibility of a false negative result should be considered if the patient has clinical presentation or has had recent exposure. No Panel InformationOrdered By: Howard Zimmerman on 12-08-2022 Influenza Types A,B Direct FA (ARIANNA) Influenzae A [facility] No Panel InformationOrdered By: Dr. Zimmerman on 12-08-2022 Influenza Types A,B Direct FA (ARIANNA) Influenzae A [facility] RSV Ag EIAOrdered By: Howard almaraz on 12-08-2022 RSV Ag Immune stain Ql (Tiss) [facility] RSV Ag EIAOrdered By: Dr. Rikki almaraz on 12-08-2022 RSV Ag Immune stain Ql (Tiss) [facility] No Panel InformationOrdered By: Dr. Cobb on 08-30-2022 Miscellaneous Test See comment [facility] Comment on above: Sent directly to [facility] facility per ordering physician. Absolute lymphocyte countOrd ered By: Dr. Pinon on 08-29-2022 Lymphocytes Auto (Unsp spec) [#/Vol] 7.48 10*3/uL 0.83-4.51 [facility] Basophil percentageOrdered B y: Dr. Pinon on 08-29-2022 Basophil percentage 3.9 mg/dL 2.5-4.9 [facility] Basophils/100 WBC (Bld) 2.8 % 0-1 [facility] Bilirubin [Mass/Vol] 0.40 mg/dL 0.20-1.00 [facility] Comment on above: For patients on eltr ombopag therapy, use of Dimension [place] TBIL is not recommended. Chloride [Moles/Vol] 104 mmol/L 98-107 [facility] Eosinophils/100 WBC (Bld) 2.7 % 0-5 [facility] Glucose [Mass/Vol] 94 mg/dL 74-106 [facility] Neutrophils (Bld) [#/Vol] 4.9 10*3/uL 2.0-7.7 [facility] Neutrophils/100 WBC (Bld) 33.6 % 47-70 [facility] Potassium [Moles/Vol] 4.0 mmol/L 3.5-5.1 [facility] Protein [Mass/Vol] 7.2 g/dL 6.4-8.2 [facility] Sodium [Moles/Vol] 140 mmol/L 136-145 [facility] WBC (Bld) [#/Vol] 14.7 10*3/uL 4.4-11.0 [facility] Blood erythrocytes count (nu mber/volume)Ordered By: Dr. Pinon on 08-29-2022 RBC (Bld) [#/Vol] 4.30 10*6/uL 4.2-5.4 [facility] Blood hemoglobin measurement (mass/volume)Ordered By: Dr. Pinon on 08-29-2022 Hemoglobin (Bld) [Mass/Vol] 13.1 g/dL 12.0-15.0 [facility] Blood lymphocytes/100 leukoc ytesOrdered By: Dr. Pinon on 08-29-2022 Lymphocytes/100 WBC (Bld) 50.9 % 19-41 [facility] Blood manual differential co mment interpretation (narrative result)Ordered By: Dr. Pinon on 08-29-2022 Manual differential comment Porter (Bld) [Interp] SCANNED [facility] Comment on above: LYMPHOCYTOSIS NOTED Blood monocytes/100 leukocyt esOrdered By: Dr. Pinon on 08-29-2022 Monocytes/100 WBC (Bld) 9.8 % 0-10 [facility] Blood platelet mean volumeOr dered By: Dr. Pinon on 08-29-2022 Platelet mean volume (Bld) [Entitic vol] 10.3 fL 6.2-12.0 [facility] Determination of erythrocyte mean corpuscular volume (MCV)Ordered By: Dr. Pinon on 08-29-2022 MCV (RBC) [Entitic vol] 95.3 fL 81-99 [facility] Hematocrit Auto (Bld) [Volum e fraction]Ordered By: Dr. Pinon on 08-29-2022 Hematocrit (Bld) [Volume fraction] 41.0 % 37-47 [facility] Laboratory - Chemistry and C hemistry - challengeOrdered By: Dr. Pinon on 08-29-2022 ALP [Catalytic activity/Vol] 91 U/L 45-117 [facility] ALT [Catalytic activity/Vol] 17 U/L 13-56 [facility] CO2 [Moles/Vol] 29.0 mmol/L 21.0-32.0 [facility] Globulin (S) [Mass/Vol] 3.6 g/dL 2.2-4.2 [facility] Urea nitrogen/Creatinine [Mass ratio] 17.8 mg/mg 10-20 [facility] Laboratory - Hematology and Cell countsOrdered By: Dr. Pinon on 08-29-2022 Erythrocyte distribution width (RBC) [Entitic vol] 47.4 fL 35.1-43.9 [facility] Erythrocyte distribution width (RBC) [Ratio] 13.5 % 11.6-14.6 [facility] Immature granulocytes/100 WBC (Bld) 0.200 % 0.0-0.9 [facility] Comment on above: IG% - Immature Granu locytes (promyelocytes, myelocytes and metamyelocytes) > 1% indicates that a LEFT SHIFT is Present. MCH (RBC) [Entitic mass] 30.5 pg 27.0-32.0 [facility] Nucleated RBC/100 WBC (Bld) [Ratio] 0 % 0-5 [facility] MCHC Auto (RBC) [Mass/Vol]Or dered By: Dr. Pinon on 08-29-2022 MCHC (RBC) [Mass/Vol] 32.0 g/dL 32-36 [facility] No Panel InformationOrdered By: Dr. Pinon on 08-29-2022 Estimated GFR (MDRD) Amer 56 mL/min >60 [facility] Comment on above: GFR Calc Estimated GFR (MDRD) Non-Af Amer 46 mL/min >60 [facility] Comment on above: Non- GFR Calc Thyroid Stimulating Hormone (TSH) 3.01 uIU/mL 0.358-3.74 [facility] Vitamin D 25-Hydroxy 52.0 ng/mL [facility] Comment on above: Vitamin D 25(OH) Sta tus Range Deficiency <20 ng/mL (50nmol/L) Insufficiency 20 - 30 ng/mL (50 - 75 nmol/L) Sufficiency 30 - 100 ng/mL (75 - 250 nmol/L) Toxicity >100 ng/mL (>250 nmol/L) Platelets bldOrdered By: Dr. Pinon on 08-29-2022 Platelets (Bld) [#/Vol] 380 10*3/uL 150-450 [facility] Serum or plasma albumin fran urement (mass/volume)Ordered By: Dr. Pinon on 08-29-2022 Albumin [Mass/Vol] 3.6 g/dL 3.2-5.0 [facility] Serum or plasma albumin/glob ulin mass ratioOrdered By: Dr. Pinon on 08-29-2022 Albumin/Globulin [Mass ratio] 1.0 {ratio} 0.9-2.4 [facility] Serum or plasma calcium fran urement (mass/volume)Ordered By: Dr. Pinon on 08-29-2022 Calcium [Mass/Vol] 9.0 mg/dL 8.5-10.1 [facility] Serum or plasma creatinine m easurement (mass/volume)Ordered By: Dr. Pinon on 08-29-2022 Creatinine [Mass/Vol] 1.18 mg/dL 0.55-1.02 [facility] Comment on above: The validity of the calculated GFR & GFRAA in patients over 70 years has not been determined. Clinical correlation is essential. Serum or plasma urea nitroge n measurement (mass/volume)Ordered By: Dr. Pinon on 08-29-2022 Urea nitrogen [Mass/Vol] 21 mg/dL 7-18 [facility] Thin prep Papanicolaou smear with manual screeningOrdered By: Dr. Pinon on 08-29-2022 Thin prep Papanicolaou smear with manual screening 34 U/L 15-37 [facility] Thin prep Papanicolaou smear with manual screening 7 5-15 [facility] CNTHERAPYon 07-18-2022 CNTHERAPY OT/PT/Speech Visit (LDPT) SANTHOSHNAMRATA KEENELEY Geovani ([id number]) 1935 F Date Time Provider Department 07/18/22 2:15 PM TEJAL WILLARD LDPT During your visit today, we recorded the following information about you: Tejal Willard, PT 07/18/2022 6:52 PM Signed Episode Visit Count: 1 Therapist That Will [...] of Care: created on 07/18/22 through 09/16/22 [place] in home exercise program. Patient will demonstrate [...] Planned: 8 Planned Treatment Interventions: Therapeutic exercise (67531), Neuromuscular re-education (39279), Therapeutic activities (75208), Patient/Family/Caregiv er Education, Gait Training (68081) PLAN FOR NEXT VISIT: pt would like [...] Retired Recreation / Current Exercise: exercises at [employer] in [place] 3 days/week AND goes to [employer] group exercise class 2 days/week at [place] Home Environment Patient Lives With: Self/Alone Home [...] better function/quality of life. 50th percentile is th (more content not included)... Normal [facility] Fungus cultureOrdered By: Dr Liu Zimmerman on 07-06-2022 Fungus identified Cx Nom (Unsp spec) [facility] Fungus stainOrdered By: Dr. Zimmerman on 07-06-2022 Fungus identified Fungus stain Nom (Unsp spec) [facility] GLEN SCREENINGon 06-30-2022 [facility] No Panel InformationOrdered By: Dr. Zimmerman on 06-01-2022 Methicillin-Resist S.aureus DNA PCR Negative Negative [facility] Staphylococcus aureus DNA de tection by probe and target amplification methodOrdered By: Dr. Zimmerman on 06-01-2022 S. aureus DNA DEONTE+probe Ql (Unsp spec) Negative Negative [facility] Absolute lymphocyte countOrd ered By: Dr. Zimmerman on 05-25-2022 Lymphocytes Auto (Unsp spec) [#/Vol] 6.59 10*3/uL 0.83-4.51 [facility] Basophil percentageOrdered B y: Dr. Zimmerman on 05-25-2022 Basophils/100 WBC (Bld) 2.5 % 0-1 [facility] Bilirubin [Mass/Vol] 0.40 mg/dL 0.20-1.00 [facility] Comment on above: For patients on eltr ombopag therapy, use of Dimension [place] TBIL is not recommended. Chloride [Moles/Vol] 102 mmol/L 98-107 [facility] Eosinophils/100 WBC (Bld) 1.9 % 0-5 [facility] Glucose [Mass/Vol] 97 mg/dL 74-106 [facility] Neutrophils (Bld) [#/Vol] 7.1 10*3/uL 2.0-7.7 [facility] Neutrophils/100 WBC (Bld) 43.8 % 47-70 [facility] Potassium [Moles/Vol] 4.2 mmol/L 3.5-5.1 [facility] Protein [Mass/Vol] 6.8 g/dL 6.4-8.2 [facility] Sodium [Moles/Vol] 138 mmol/L 136-145 [facility] WBC (Bld) [#/Vol] 16.2 10*3/uL 4.4-11.0 [facility] Blood erythrocytes count (nu mber/volume)Ordered By: Dr. Zimmerman on 05-25-2022 RBC (Bld) [#/Vol] 3.96 10*6/uL 4.2-5.4 [facility] Blood hemoglobin measurement (mass/volume)Ordered By: Dr. Zimmerman on 05-25-2022 Hemoglobin (Bld) [Mass/Vol] 12.5 g/dL 12.0-15.0 [facility] Blood lymphocytes/100 leukoc ytesOrdered By: Dr. Zimmerman on 05-25-2022 Lymphocytes/100 WBC (Bld) 40.8 % 19-41 [facility] Blood manual differential co mment interpretation (narrative result)Ordered By: Dr. Zimmerman on 05-25-2022 Manual differential comment Porter (Bld) [Interp] SCANNED [facility] Comment on above: LYMPHOCYTOSIS NOTEDM ONOCYTOSIS NOTED Blood monocytes/100 leukocyt esOrdered By: [address] Zimmerman on 05-25-2022 Monocytes/100 WBC (Bld) 10.6 % 0-10 [facility] Blood platelet mean volumeOr dered By: Dr. Zimmerman on 05-25-2022 Platelet mean volume (Bld) [Entitic vol] 9.5 fL 6.2-12.0 [facility] Determination of erythrocyte mean corpuscular volume (MCV)Ordered By: Dr. Zimmerman on 05-25-2022 MCV (RBC) [Entitic vol] 95.5 fL 81-99 [facility] Hematocrit Auto (Bld) [Volum e fraction]Ordered By: Dr. Zimmerman on 05-25-2022 Hematocrit (Bld) [Volume fraction] 37.8 % 37-47 [facility] Laboratory - Chemistry and C hemistry - challengeOrdered By: Dr. Zimmerman on 05-25-2022 ALP [Catalytic activity/Vol] 86 U/L 45-117 [facility] ALT [Catalytic activity/Vol] 11 U/L 13-56 [facility] CO2 [Moles/Vol] 31.0 mmol/L 21.0-32.0 [facility] Globulin (S) [Mass/Vol] 3.5 g/dL 2.2-4.2 [facility] Urea nitrogen/Creatinine [Mass ratio] 16.0 mg/mg 10-20 [facility] Laboratory - Hematology and Cell countsOrdered By: Dr. Zimmerman on 05-25-2022 Erythrocyte distribution width (RBC) [Entitic vol] 48.0 fL 35.1-43.9 [facility] Erythrocyte distribution width (RBC) [Ratio] 13.6 % 11.6-14.6 [facility] Immature granulocytes/100 WBC (Bld) 0.400 % 0.0-0.9 [facility] Comment on above: IG% - Immature Granu locytes (promyelocytes, myelocytes and metamyelocytes) > 1% indicates that a LEFT SHIFT is Present. MCH (RBC) [Entitic mass] 31.6 pg 27.0-32.0 [facility] Nucleated RBC/100 WBC (Bld) [Ratio] 0 % 0-5 [facility] MCHC Auto (RBC) [Mass/Vol]Or dered By: Dr. Zimmerman on 05-25-2022 MCHC (RBC) [Mass/Vol] 33.1 g/dL 32-36 [facility] No Panel InformationOrdered By: Dr. Zimmerman on 05-25-2022 Estimated GFR (MDRD) Amer 50 mL/min >60 [facility] Comment on above: GFR Calc Estimated GFR (MDRD) Non-Af Amer 41 mL/min >60 [facility] Comment on above: Non- GFR Calc Thyroid Stimulating Hormone (TSH) 2.03 uIU/mL 0.358-3.74 [facility] Vitamin D 25-Hydroxy 37.9 ng/mL [facility] Comment on above: Vitamin D 25(OH) Sta tus Range Deficiency <20 ng/mL (50nmol/L) Insufficiency 20 - 30 ng/mL (50 - 75 nmol/L) Sufficiency 30 - 100 ng/mL (75 - 250 nmol/L) Toxicity >100 ng/mL (>250 nmol/L) Platelets bldOrdered By: Dr. Zimmerman on 05-25-2022 Platelets (Bld) [#/Vol] 376 10*3/uL 150-450 [facility] Review by pathologistOrdered By: Dr. Zimmerman on 05-25-2022 Pathologist review Porter (Unsp spec) [Interp] Reviewed [facility] Comment on above: Previous reported re sult: Heide mckenna Edited by: BINA on 05/26/22:1207Leukocytosis. Clinical correlation necessary.Nilton Flaherty M.D. 05/26/22 AMENDED REPORT 05/26/22 1207 PATH REV previously reported as: Heide mckenna Serum or plasma albumin fran urement (mass/volume)Ordered By: Dr. Zimmerman on 05-25-2022 Albumin [Mass/Vol] 3.3 g/dL 3.2-5.0 [facility] Serum or plasma albumin/glob ulin mass ratioOrdered By: Dr. Zimmerman on 05-25-2022 Albumin/Globulin [Mass ratio] 0.9 {ratio} 0.9-2.4 [facility] Serum or plasma calcium fran urement (mass/volume)Ordered By: Dr. Zimmerman on 05-25-2022 Calcium [Mass/Vol] 9.0 mg/dL 8.5-10.1 [facility] Serum or plasma creatinine m easurement (mass/volume)Ordered By: Dr. Zimmerman on 05-25-2022 Creatinine [Mass/Vol] 1.31 mg/dL 0.55-1.02 [facility] Comment on above: The validity of the calculated GFR & GFRAA in patients over 70 years has not been determined. Clinical correlation is essential. Serum or plasma urea nitroge n measurement (mass/volume)Ordered By: Dr. Zimmerman on 05-25-2022 Urea nitrogen [Mass/Vol] 21 mg/dL 7-18 [facility] Thin prep Papanicolaou smear with manual screeningOrdered By: Dr. Zimmerman on 05-25-2022 Thin prep Papanicolaou smear with manual screening 25 U/L 15-37 [facility] Thin prep Papanicolaou smear with manual screening 5 5-15 [facility] Absolute lymphocyte countOrd ered By: Bart Bhandari on 05-12-2022 Lymphocytes Auto (Unsp spec) [#/Vol] 4.67 10*3/uL 0.83-4.51 [facility] Basophil percentageOrdered B y: Bart Bhandari on 05-12-2022 Basophils/100 WBC (Bld) 1.5 % 0-1 [facility] Chloride [Moles/Vol] 103 mmol/L 98-107 [facility] Eosinophils/100 WBC (Bld) 0.3 % 0-5 [facility] Glucose [Mass/Vol] 106 mg/dL 74-106 [facility] Comment on above: Fasting Glucose resu lt from 100 to 125 mg/dL suggests IMPAIRED HOMEOSTASIS per A.D.A. criteria. Neutrophils (Bld) [#/Vol] 9.3 10*3/uL 2.0-7.7 [facility] Neutrophils/100 WBC (Bld) 59.5 % 47-70 [facility] Potassium [Moles/Vol] 4.2 mmol/L 3.5-5.1 [facility] Sodium [Moles/Vol] 140 mmol/L 136-145 [facility] WBC (Bld) [#/Vol] 15.7 10*3/uL 4.4-11.0 [facility] Blood erythrocytes count (nu mber/volume)Ordered By: Bart Bhandari on 05-12-2022 RBC (Bld) [#/Vol] 4.06 10*6/uL 4.2-5.4 [facility] Blood hemoglobin measurement (mass/volume)Ordered By: Bart Bhandari on 05-12-2022 Hemoglobin (Bld) [Mass/Vol] 12.8 g/dL 12.0-15.0 [facility] Blood lymphocytes/100 leukoc ytesOrdered By: Bart Bhandari on 05-12-2022 Lymphocytes/100 WBC (Bld) 29.8 % 19-41 [facility] Blood monocytes/100 leukocyt esOrdered By: Bart Bhandari on 05-12-2022 Monocytes/100 WBC (Bld) 8.5 % 0-10 [facility] Blood platelet mean volumeOr dered By: Bart Bhandari on 05-12-2022 Platelet mean volume (Bld) [Entitic vol] 9.1 fL 6.2-12.0 [facility] Determination of erythrocyte mean corpuscular volume (MCV)Ordered By: Bart Bhandari on 05-12-2022 MCV (RBC) [Entitic vol] 96.1 fL 81-99 [facility] Hematocrit Auto (Bld) [Volum e fraction]Ordered By: Bart Bhandari on 05-12-2022 Hematocrit (Bld) [Volume fraction] 39.0 % 37-47 [facility] Laboratory - Chemistry and C hemistry - challengeOrdered By: Bart Bhandari on 05-12-2022 CO2 [Moles/Vol] 32.0 mmol/L 21.0-32.0 [facility] Urea nitrogen/Creatinine [Mass ratio] 17.1 mg/mg 10-20 [facility] Laboratory - Hematology and Cell countsOrdered By: Bart Bhandari on 05-12-2022 Erythrocyte distribution width (RBC) [Entitic vol] 48.5 fL 35.1-43.9 [facility] Erythrocyte distribution width (RBC) [Ratio] 13.6 % 11.6-14.6 [facility] Immature granulocytes/100 WBC (Bld) 0.400 % 0.0-0.9 [facility] Comment on above: IG% - Immature Granu locytes (promyelocytes, myelocytes and metamyelocytes) > 1% indicates that a LEFT SHIFT is Present. MCH (RBC) [Entitic mass] 31.5 pg 27.0-32.0 [facility] Nucleated RBC/100 WBC (Bld) [Ratio] 0 % 0-5 [facility] MCHC Auto (RBC) [Mass/Vol]Or dered By: Bart Bhandari on 05-12-2022 MCHC (RBC) [Mass/Vol] 32.8 g/dL 32-36 [facility] No Panel InformationOrdered By: Bart Bhandari on 05-12-2022 Troponin I High Sensitivity 5 pg/mL 3.0-54.0 [facility] Comment on above: Please Note: New Shreya t Units and Gender Specific Reference Ranges. For more information see Policy Stat Procedure [place] High Sensitivity Troponin (TNIH) and attachments. Estimated Creatinine Clearance Calc 25.17 ml/min [facility] Estimated GFR (MDRD) Amer 56 mL/min >60 [facility] Comment on above: GFR Calc Estimated GFR (MDRD) Non-Af Amer 47 mL/min >60 [facility] Comment on above: Non- GFR Calc Platelets bldOrdered By: Eliana Bhandari on 05-12-2022 Platelets (Bld) [#/Vol] 382 10*3/uL 150-450 [facility] Serum or plasma calcium fran urement (mass/volume)Ordered By: Bart Bhandari on 05-12-2022 Calcium [Mass/Vol] 9.6 mg/dL 8.5-10.1 [facility] Serum or plasma creatinine m easurement (mass/volume)Ordered By: Bart Bhandari on 05-12-2022 Creatinine [Mass/Vol] 1.17 mg/dL 0.55-1.02 [facility] Comment on above: The validity of the calculated GFR & GFRAA in patients over 70 years has not been determined. Clinical correlation is essential. Serum or plasma urea nitroge n measurement (mass/volume)Ordered By: Bart Bhandari on 05-12-2022 Urea nitrogen [Mass/Vol] 20 mg/dL 7-18 [facility] Thin prep Papanicolaou smear with manual screeningOrdered By: Bart Bhandari on 05-12-2022 Thin prep Papanicolaou smear with manual screening 5 5-15 [facility] Basophil percentageOrdered B y: Dr. Zimmerman on 04-19-2022 Chloride [Moles/Vol] 106 mmol/L 98-107 [facility] Glucose [Mass/Vol] 89 mg/dL 74-106 [facility] Potassium [Moles/Vol] 4.4 mmol/L 3.5-5.1 [facility] Sodium [Moles/Vol] 138 mmol/L 136-145 [facility] Laboratory - Chemistry and C hemistry - challengeOrdered By: Dr. Zimmerman on 04-19-2022 CO2 [Moles/Vol] 29.0 mmol/L 21.0-32.0 [facility] Urea nitrogen/Creatinine [Mass ratio] 16.4 mg/mg - [facility] No Panel InformationOrdered By: Dr. Zimmerman on 04-19-2022 Estimated GFR (MDRD) Amer 54 mL/min >60 [facility] Comment on above: GFR Calc Estimated GFR (MDRD) Non-Af Amer 44 mL/min >60 [facility] Comment on above: Non- GFR Calc Serum or plasma calcium fran urement (mass/volume)Ordered By: Dr. Zimmerman on 04-19-2022 Calcium [Mass/Vol] 9.0 mg/dL 8.5-10.1 [facility] Serum or plasma creatinine m easurement (mass/volume)Ordered By: Dr. Zimmerman on 04-19-2022 Creatinine [Mass/Vol] 1.22 mg/dL 0.55-1.02 [facility] Comment on above: The validity of the calculated GFR & GFRAA in patients over 70 years has not been determined. Clinical correlation is essential. Serum or plasma urea nitroge n measurement (mass/volume)Ordered By: Dr. Zimmerman on 04-19-2022 Urea nitrogen [Mass/Vol] 20 mg/dL 7-18 [facility] Thin prep Papanicolaou smear with manual screeningOrdered By: Dr. Zimmerman on 04-19-2022 Thin prep Papanicolaou smear with manual screening 3 5- [facility] Laboratory - Microbiology an d Antimicrobial susceptibilityOrdered By: Dr. Zimmerman on 04-07-2022 SARS-CoV-2 (COVID-19) RNA DEONTE+probe Ql (Unsp spec) Not detected Not Detect [facility] Comment on above: Normal Reference Ran ge: Not DetectedMethod:(RT-PCR) real-time reverse transcriptase PCRLuminex THOMAS Instrument*The Food and Drug Administration (FDA) has issued an Emergency Use Authorization (EAU) for the THOMAS SARS-CoV-2 Assay for the rapid detection of the virus that causes COVID-19. This test has been validated, but the FDAs independent review of this validation is pending.*Negative results do not preclude infection and should not be used as the sole basis for treatment or patient management. Optimum specimen types and timing for peak viral levels during infections caused by SARS-CoV-2 have not been determined. Collection of multiple specimens from the same patient may be necessary to detect the virus. The possibility of a false negative result should be considered if the patient has clinical presentation or has had recent exposure. No Panel InformationOrdered By: Dr. Zimmerman on 04-07-2022 Influenza Types A,B Direct FA (ARIANNA) [facility] RSV Ag EIAOrdered By: Dr. Rikki almaraz on 04-07-2022 RSV Ag Immune stain Ql (Tiss) [facility] Laboratory - Microbiology an d Antimicrobial susceptibilityon 03-30-2022 SARS-CoV-2 (COVID-19) RNA DEONTE+probe Ql (Unsp spec) Not detected [facility] No Panel Informationon 03-30 POC Nasal Swab Influenza A,B Not detected [facility] POC Nasal Swab RSV Not detected [facility] Laboratory - Microbiology an d Antimicrobial susceptibilityon 03-07-2022 SARS-CoV-2 (COVID-19) RNA DEONTE+probe Ql (Unsp spec) Not detected Not Detect [facility] Work Phone: Comment on above: Normal Reference Ran ge: Not DetectedMethod:(RT-PCR) real-time reverse transcriptase PCRLuminex THOMAS Instrument*The Food and Drug Administration (FDA) has issued an Emergency Use Authorization (EAU) for the THOMAS SARS-CoV-2 Assay for the rapid detection of the virus that causes COVID-19. This test has been validated, but the FDAs independent review of this validation is pending.*Negative results do not preclude infection and should not be used as the sole basis for treatment or patient management. Optimum specimen types and timing for peak viral levels during infections caused by SARS-CoV-2 have not been determined. Collection of multiple specimens from the same patient may be necessary to detect the virus. The possibility of a false negative result should be considered if the patient has clinical presentation or has had recent exposure. Absolute lymphocyte counton 03-06-2022 Lymphocytes Auto (Unsp spec) [#/Vol] 8.34 10*3/uL 0.83-4.51 [facility] Work Phone: Basophil percentageon 2021 Basophils/100 WBC (Bld) 2.3 % 0-1 [facility] Work Phone: Bilirubin [Mass/Vol] 0.50 mg/dL 0.20-1.00 [facility] Work Phone: [phone] Comment on above: For patients on eltr ombopag therapy, use of Dimension [place] TBIL is not recommended. Chloride [Moles/Vol] 103 mmol/L 98-107 [facility] Work Phone: Eosinophils/100 WBC (Bld) 1.1 % 0-5 [facility] Work Phone: [phone] Glucose [Mass/Vol] 105 mg/dL 74-106 [facility] Work Phone: [phone] Comment on above: Fasting Glucose resu lt from 100 to 125 mg/dL suggests IMPAIRED HOMEOSTASIS per A.D.A. criteria. Neutrophils (Bld) [#/Vol] 7.4 10*3/uL 2.0-7.7 [facility] Work Phone: Neutrophils/100 WBC (Bld) 42.2 % 47-70 [facility] Work Phone: Potassium [Moles/Vol] 4.3 mmol/L 3.5-5.1 [facility] Work Phone: [phone] Protein [Mass/Vol] 7.3 g/dL 6.4-8.2 [facility] Work Phone: Sodium [Moles/Vol] 140 mmol/L 136-145 [facility] Work Phone: WBC (Bld) [#/Vol] 17.4 10*3/uL 4.4-11.0 [facility] Work Phone: Blood erythrocytes count (nu mber/volume)on 03-06-2022 RBC (Bld) [#/Vol] 4.15 10*6/uL 4.2-5.4 [facility] Work Phone: Blood hemoglobin measurement (mass/volume)on 03-06-2022 Hemoglobin (Bld) [Mass/Vol] 12.7 g/dL 12.0-15.0 [facility] Work Phone: Blood lymphocytes/100 leukoc yteson 03-06-2022 Lymphocytes/100 WBC (Bld) 48.0 % 19-41 [facility] Work Phone: Blood manual differential co mment interpretation (narrative result)on 03-06-2022 Manual differential comment Porter (Bld) [Interp] See comment [facility] Work Phone: Comment on above: LYMPHOCYTOSIS NOTED Blood monocytes/100 leukocyt eson 03-06-2022 Monocytes/100 WBC (Bld) 6.1 % 0-10 [facility] Work Phone: Blood platelet adequacy dete ction by light microscopyon 03-06-2022 Platelets LM Ql (Bld) ADEQUATE ADEQ [facility] Work Phone: Blood platelet mean volumeon 03-06-2022 Platelet mean volume (Bld) [Entitic vol] 10.3 fL 6.2-12.0 [facility] Work Phone: Determination of erythrocyte mean corpuscular volume (MCV)on 03-06-2022 MCV (RBC) [Entitic vol] 94.7 fL 81-99 [facility] Work Phone: Hematocrit Auto (Bld) [Volum e fraction]on 03-06-2022 Hematocrit (Bld) [Volume fraction] 39.3 % 37-47 [facility] Work Phone: Laboratory - Chemistry and C hemistry - challengeon 03-06-2022 ALP [Catalytic activity/Vol] 86 U/L 45-117 [facility] Work Phone: ALT [Catalytic activity/Vol] 11 U/L 13-56 [facility] Work Phone: CO2 [Moles/Vol] 31.0 mmol/L 21.0-32.0 [facility] Work Phone: Globulin (S) [Mass/Vol] 3.7 g/dL 2.2-4.2 [facility] Work Phone: Urea nitrogen/Creatinine [Mass ratio] 16.1 mg/mg 10-20 [facility] Work Phone: Laboratory - Hematology and Cell countson 03-06-2022 Erythrocyte distribution width (RBC) [Entitic vol] 47.7 fL 35.1-43.9 [facility] Work Phone: Erythrocyte distribution width (RBC) [Ratio] 13.6 % 11.6-14.6 [facility] Work Phone: Immature granulocytes/100 WBC (Bld) 0.300 % 0.0-0.9 [facility] Work Phone: Comment on above: IG% - Immature Granu locytes (promyelocytes, myelocytes and metamyelocytes) > 1% indicates that a LEFT SHIFT is Present. MCH (RBC) [Entitic mass] 30.6 pg 27.0-32.0 [facility] Work Phone: [phone] Nucleated RBC/100 WBC (Bld) [Ratio] 0 % 0-5 [facility] Work Phone: MCHC Auto (RBC) [Mass/Vol]on 03-06-2022 MCHC (RBC) [Mass/Vol] 32.3 g/dL 32-[facility] No Panel Informationon 03-06 [facility]ical [facility]ocytes 1+ % [facility] Work [facility]: [phone] Estimated GFR (MDRD) Amer 53 mL/min >60 [facility] Work Phone: [phone] Comment on above: GFR Calc Estimated GFR (MDRD) Non-Af Amer 44 mL/min >60 [facility] Work Phone: Comment on above: Non- GFR Calc Platelets bldon 03-06-2022 Platelets (Bld) [#/Vol] 338 10*3/uL 150-450 [facility] Work Phone: RBC morphologyon 03-06-2022 RBC morphology finding Nom (Bld) NORM C+C NORMAL NORM C&C [facility] Work Phone: Serum or plasma albumin fran urement (mass/volume)on 03-06-2022 Albumin [Mass/Vol] 3.6 g/dL 3.2-5.0 [facility] Work Phone: Serum or plasma albumin/glob ulin mass ratioon 03-06-2022 Albumin/Globulin [Mass ratio] 1.0 {ratio} 0.9-2.4 [facility] Work Phone: Serum or plasma calcium fran urement (mass/volume)on 03-06-2022 Calcium [Mass/Vol] 9.7 mg/dL 8.5-10.1 [facility] Work Phone: Serum or plasma creatinine m easurement (mass/volume)on 03-06-2022 Creatinine [Mass/Vol] 1.24 mg/dL 0.55-1.02 [facility] Work Phone: Comment on above: The validity of the calculated GFR & GFRAA in patients over 70 years has not been determined. Clinical correlation is essential. Serum or plasma urea nitroge n measurement (mass/volume)on 03-06-2022 Urea nitrogen [Mass/Vol] 20 mg/dL 7-18 [facility] Work Phone: Thin prep Papanicolaou smear with manual screeningon 03-06-2022 Thin prep Papanicolaou smear with manual screening 31 U/L 15-37 [facility] Work Phone: Thin prep Papanicolaou smear with manual screening 6 5-15 [facility] Work Phone: No Panel Informationon 12-22 Miscellaneous Test See comment [facility] Work Phone: Comment on above: [facility]. Absolute lymphocyte counton 11-21-2021 Lymphocytes Auto (Unsp spec) [#/Vol] 10.68 10*3/uL 0.83-4.51 [facility] Work Phone: Basophil percentageon 2021 Basophils/100 WBC (Bld) 2.7 % 0-1 [facility] Work Phone: Bilirubin [Mass/Vol] 0.40 mg/dL 0.20-1.00 [facility] Work Phone: Comment on above: For patients on eltr ombopag therapy, use of Dimension [place] TBIL is not recommended. Chloride [Moles/Vol] 104 mmol/L 98-107 [facility] Work Phone: Eosinophils/100 WBC (Bld) 2.6 % 0-5 [facility] Work Phone: Glucose [Mass/Vol] 97 mg/dL 74-106 [facility] Work Phone: Neutrophils (Bld) [#/Vol] 5.6 10*3/uL 2.0-7.7 [facility] Work Phone: Neutrophils/100 WBC (Bld) 29.6 % 47-70 [facility] Work Phone: Potassium [Moles/Vol] 4.1 mmol/L 3.5-5.1 [facility] Work Phone: [phone] Protein [Mass/Vol] 7.1 g/dL 6.4-8.2 [facility] Work Phone: Sodium [Moles/Vol] 136 mmol/L 136-145 [facility] Work Phone: WBC (Bld) [#/Vol] 19.0 10*3/uL 4.4-11.0 [facility] Work Phone: Blood erythrocytes count (nu mber/volume)on 11-21-2021 RBC (Bld) [#/Vol] 4.03 10*6/uL 4.2-5.4 [facility] Work Phone: Blood hemoglobin measurement (mass/volume)on 11-21-2021 Hemoglobin (Bld) [Mass/Vol] 12.0 g/dL 12.0-15.0 [facility] Work Phone: Blood lymphocytes/100 leukoc yteson 11-21-2021 Lymphocytes/100 WBC (Bld) 56.3 % 19-41 [facility] Work Phone: Blood manual differential co mment interpretation (narrative result)on 11-21-2021 Manual differential comment Porter (Bld) [Interp] SEE COMMENTS [facility] Work Phone: Comment on above: LYMPHOCYTOSIS NOTEDM ONOCYTOSIS NOTED Blood monocytes/100 leukocyt eson 11-21-2021 Monocytes/100 WBC (Bld) 8.5 % 0-10 [facility] Work Phone: Blood platelet adequacy dete ction by light microscopyon 11-21-2021 Platelets LM Ql (Bld) ADEQUATE ADEQ [facility] Work Phone: Blood platelet mean volumeon 11-21-2021 Platelet mean volume (Bld) [Entitic vol] 10.7 fL 6.2-12.0 [facility] Work Phone: Determination of erythrocyte mean corpuscular volume (MCV)on 11-21-2021 MCV (RBC) [Entitic vol] 92.6 fL 81-99 [facility] Work Phone: Hematocrit Auto (Bld) [Volum e fraction]on 11-21-2021 Hematocrit (Bld) [Volume fraction] 37.3 % 37-47 [facility] Work Phone: Laboratory - Chemistry and C hemistry - challengeon 11-21-2021 ALP [Catalytic activity/Vol] 136 U/L 45-117 [facility] Work Phone: ALT [Catalytic activity/Vol] 10 U/L 13-56 [facility] Work Phone: CO2 [Moles/Vol] 28.0 mmol/L 21.0-32.0 [facility] Work Phone: Globulin (S) [Mass/Vol] 3.6 g/dL 2.2-4.2 [facility] Work Phone: Urea nitrogen/Creatinine [Mass ratio] 21.5 mg/mg 10-20 [facility] Work Phone: Laboratory - Hematology and Cell countson 11-21-2021 Anisocytosis Ql (Bld) RARE [facility] Work Phone: Erythrocyte distribution width (RBC) [Entitic vol] 46.7 fL 35.1-43.9 [facility] Work Phone: Erythrocyte distribution width (RBC) [Ratio] 13.7 % 11.6-14.6 [facility] Work Phone: Immature granulocytes/100 WBC (Bld) 0.300 % 0.0-0.9 [facility] Work Phone: Comment on above: IG% - Immature Granu locytes (promyelocytes, myelocytes and metamyelocytes) > 1% indicates that a LEFT SHIFT is Present. MCH (RBC) [Entitic mass] 29.8 pg 27.0-32.0 [facility] Work Phone: Nucleated RBC/100 WBC (Bld) [Ratio] 0 % 0-5 [facility] Work Phone: MCHC Auto (RBC) [Mass/Vol]on 11-21-2021 MCHC (RBC) [Mass/Vol] 32.2 g/dL 32-36 [facility] Work Phone: Macrocytes detectionon 11-21 Macrocytes Ql (Bld) RARE [facility] Work Phone: No Panel Informationon 11-21 Atypical Lymphocytes 1+ % [facility] Work Phone: Estimated GFR (MDRD) Amer 54 mL/min >60 [facility] Work Phone: Comment on above: GFR Calc Estimated GFR (MDRD) Non-Af Amer 45 mL/min >60 [facility] Work Phone: Comment on above: Non- GFR Calc Thyroid Stimulating Hormone (TSH) 1.52 uIU/mL 0.358-3.74 [facility] Work Phone: Vitamin D 25-Hydroxy 62.6 ng/mL [facility] Work Phone: Comment on above: Vitamin D 25(OH) Sta tus Range Deficiency <20 ng/mL (50nmol/L) Insufficiency 20 - 30 ng/mL (50 - 75 nmol/L) Sufficiency 30 - 100 ng/mL (75 - 250 nmol/L) Toxicity >100 ng/mL (>250 nmol/L) Platelets bldon 11-21-2021 Platelets (Bld) [#/Vol] 267 10*3/uL 150-450 [facility] Work Phone: RBC morphologyon 11-21-2021 RBC morphology finding Nom (Bld) N CHROM NORMAL NORM C&C [facility] Work Phone: Review by pathologiston Pathologist review Porter (Unsp spec) [Interp] Reviewed [facility] Work Phone: Comment on above: Previous reported re sult: Heide mckenna Edited by: RGOELIZABETH on 11/22/21:1313Leukocytosis and absolute lymphocytosis.Clinical correlation necessary.Nilton Flaherty M.D. 11/22/21 AMENDED REPORT 11/22/21 1313 PATH REV previously reported as: Heide mckenna Serum or plasma albumin fran urement (mass/volume)on 11-21-2021 Albumin [Mass/Vol] 3.5 g/dL 3.2-5.0 [facility] Work Phone: Serum or plasma albumin/glob ulin mass ratioon 11-21-2021 Albumin/Globulin [Mass ratio] 1.0 {ratio} 0.9-2.4 [facility] Work Phone: Serum or plasma calcium fran urement (mass/volume)on 11-21-2021 Calcium [Mass/Vol] 8.8 mg/dL 8.5-10.1 [facility] Work Phone: Serum or plasma creatinine m easurement (mass/volume)on 11-21-2021 Creatinine [Mass/Vol] 1.21 mg/dL 0.55-1.02 [facility] Work Phone: Comment on above: The validity of the calculated GFR & GFRAA in patients over 70 years has not been determined. Clinical correlation is essential. Serum or plasma urea nitroge n measurement (mass/volume)on 11-21-2021 Urea nitrogen [Mass/Vol] 26 mg/dL 7-18 [facility] Work Phone: Thin prep Papanicolaou smear with manual screeningon 11-21-2021 Thin prep Papanicolaou smear with manual screening 34 U/L 15-37 [facility] Work Phone: Thin prep Papanicolaou smear with manual screening 4 5-15 [facility] Work Phone: PROGRESSon 05-31-2020 PROGRESS HNO ID: [id number] Author: Sridevi Solo Service: ? Author Type: Physician Type: Progress Notes Filed: 05/31/2020 3:24 PM Note Text: I spoke with the patient over the phone. She consented to virtual visit. She is doing reasonably well. She denied memory problems (except for anomia). She sleeps well and denied weight loss/poor appetite and low mood. She was compliant with mirtazapine 7.5 mg PO QHS for past one year. However, the patient would like to stop mirtazapine now. We agreed that she may stop it. We agreed to refill Sinemet. The patient will continue to exercise regularly. F/u as planned. Sridevi Solo MD 15 minutes and at least 50% of this time was used for counseling. Normal [facility] Basic Metabolic Panelon 12-0 Calcium [Mass/Vol] 9.4 mg/dL Normal 8.4-10.4 [facility] Comment on above: Performed By: #### B MP3, HEMOG #### [facility] [address] [place] [address] Anion gap [Moles/Vol] 7 Normal [facility] Comment on above: Performed By: #### B MP3, HEMOG #### [facility] [address] [place] [address] CO2 [Moles/Vol] 28 mmol/L Normal 22-30 [facility] Comment on above: Performed By: #### B MP3, HEMOG #### [facility] [address] [place] [address] Creatinine [Mass/Vol] 0.91 mg/dL Normal 0.52-1.25 [facility] Comment on above: Performed By: #### B MP3, HEMOG #### [facility] [address] [place] [address] GFR/1.73 sq M predicted among blacks MDRD (S/P/Bld) [Vol rate/Area] mL/min/{1.73_m2} Normal >60 [facility] Comment on above: Performed By: #### B MP3, HEMOG #### [facility] [address] [place] [address] GFR/1.73 sq M predicted among non-blacks MDRD (S/P/Bld) [Vol rate/Area] 59.0 mL/min/{1.73_m2} Normal >60 [facility] Comment on above: Result Comment: Sour ce- MDRD equation with creatinine calibration to IDMS(NKDEP) eGFR not recommended for drug dose adjustment Performed By: #### B MP3, HEMOG #### [facility] [address] [place] [address] Glucose [Mass/Vol] 90 mg/dL Normal 70-100 [facility] Comment on above: Performed By: #### B MP3, HEMOG #### [facility] [address] [place] [address] Urea nitrogen [Mass/Vol] 20 mg/dL Normal 7-20 [facility] Comment on above: Performed By: #### B MP3, HEMOG #### [facility] [address] [place] [address] Chloride [Moles/Vol] 102 mmol/L Normal 98-107 [facility] Comment on above: Performed By: #### B MP3, HEMOG #### [facility] [address] [place] [address] Potassium [Moles/Vol] 4.5 mmol/L Normal 3.5-5.1 [facility] Comment on above: Performed By: #### B MP3, HEMOG #### [facility] [address] [place] [address] Sodium [Moles/Vol] 138 mmol/L Normal 135-145 [facility] Comment on above: Performed By: #### B MP3, HEMOG #### [facility] [address] [place] [address] Anion gap [Moles/Vol] 7 mmol/L [place], [place] Calcium [Mass/Vol] 9.4 mg/dL 8.4 - 10. 4 mg/dL [place], [place] Chloride [Moles/Vol] 102 mmol/L 98 - 10 7 mmol/L [place] CO2 [Moles/Vol] 28 mmol/L 22 - 30 mmol/L [place] Creatinine [Mass/Vol] 0.91 mg/dL 0.52 - 1.25 mg/dL [place] EGFR IF NonAfrican Citizen Of [place] 59.0 mL/min >60 [place] Comment on above: Source- MDRD equatio n with creatinine calibration to IDMS(NKDEP) eGFR not recommended for drug dose adjustment GFR/1.73 sq M predicted among blacks MDRD (S/P/Bld) [Vol rate/Area] mL/min/{1.73_m2} >60 mL/min [place] Glucose [Mass/Vol] 90 mg/dL 70 - 100 mg/dL [place] Potassium [Moles/Vol] 4.5 mmol/L 3.5 - 5.1 mmol/L [place] Sodium [Moles/Vol] 138 mmol/L 135 - 145 mmol/L [place] Urea nitrogen [Mass/Vol] 20 mg/dL 7 - 20 mg/dL [place] Test Performed by [facility], [address] [place] [address] [place] CBCon 2019 Erythrocyte distribution width (RBC) [Ratio] 13.6 % 11.5 - 14.5 % [place] Hematocrit (Bld) [Volume fraction] 38.4 % 35 - 47 % [place] Hemoglobin (Bld) [Mass/Vol] 12.7 g/dL 11.7 - 16 g/dL [place] Interpretation and review of laboratory results Abnormal [place] MCH (RBC) [Entitic mass] 30.1 pg 26 - 34 pg [place] MCHC (RBC) [Mass/Vol] 33.0 % 32 - 36 % [place] MCV (RBC) [Entitic vol] 91.1 fL 79 - 98 fL [place] Platelet mean volume (Bld) [Entitic vol] 8.0 fL 7.4 - 10.4 fL [place] Platelets (Bld) [#/Vol] 326 10*3/uL 140 - 440 10*3/uL [place] RBC (Bld) [#/Vol] 4.21 10*6/uL 3.8 - 5.2 10*6/uL [place] WBC (Bld) [#/Vol] 11.1 10*3/uL High 3.6 - 10.7 10*3/uL [place] Test Performed by [facility], [address] [place] [address] [place] Hemogramon 2019 Erythrocyte distribution width (RBC) [Ratio] 13.6 % Normal 11.5-14.5 [facility] Comment on above: Performed By: #### B MP3, HEMOG #### [address] [address] [place] [address] Hematocrit (Bld) [Volume fraction] 38.4 % Normal 35.0-47.0 [facility] Comment on above: Performed By: #### B MP3, HEMOG #### [facility] [address], [place] Hemoglobin (Bld) [Mass/Vol] 12.7 g/dL Normal 11.7-16.0 [facility] Comment on above: Performed By: #### B MP3, HEMOG #### [facility] [address], [place] MCH (RBC) [Entitic mass] 30.1 pg Normal 26.0-34.0 [facility] Comment on above: Performed By: #### B MP3, HEMOG #### [address] [address] [address] [place] MCHC (RBC) [Mass/Vol] 33.0 % Normal 32.0-36.0 [facility] Comment on above: Performed By: #### B MP3, HEMOG #### [address] [address] [address] MCV (RBC) [Entitic vol] 91.1 fL Normal 79.0-98.0 [facility] Comment on above: Performed By: #### B MP3, HEMOG #### [address] [address] [address], [place] Platelet mean volume (Bld) [Entitic vol] 8.0 fL Normal 7.4-10.4 [facility] Comment on above: Performed By: #### B MP3, HEMOG #### [address] [address] [address], [place] Platelets (Bld) [#/Vol] 326 10*3/uL Normal 140-440 [facility] Comment on above: Performed By: #### B MP3, HEMOG #### [address] [address] [address] [place], [place] RBC (Bld) [#/Vol] 4.21 10*6/uL Normal 3.80-5.20 [facility] Comment on above: Performed By: #### B MP3, HEMOG #### [address] [address], [place] WBC (Bld) [#/Vol] 11.1 10*3/uL High 3.6-10.7 [facility] Comment on above: Performed By: #### B MP3, HEMOG #### [facility] [address] [place] [address] Replaced Document: Aliya CORLEY Observationson 05-07-2017 EKG QRS axis 77 deg Invalid Interpretation Code [employer] Work Phone: [phone] Interpretation Sinus Bradycardia Lo w voltage with rightward P-axis and rotation -possible pulmonary disease. ABNORMAL Invalid Interpretation Code [employer] Work Phone: [phone] P [place] 68 deg Invalid Interpretation Code [employer] Work Phone: [phone] AR Interval 206 ms Invalid Interpretation Code [employer] Work Phone: [phone] Pulse (Heart Rate) 53 /min Invalid Interpretation Code [employer] Work Phone: [phone] QRS Duration 100 ms Invalid Interpretation Code [employer] Work Phone: [phone] QT Interval new path ms Invalid Interpretation Code [employer] Work Phone: [phone] QTc Iglesias 392 ms Invalid Interpretation Code [employer] Work Phone: [phone] T [place] 20 deg Invalid Interpretation Code [employer] Work Phone: [phone] Office Visiton 01-08-2017 Documentation of current medications (procedure) Done Invalid Interpretation Code [employer] Work Phone: [phone] Clinical Lists Update: Prelo command and control 01-04-2017 Left ventricular Ejection fraction 55 % Invalid Interpretation Code [employer] Work Phone: [phone] Lab Report: Basic Metabolic Profile (BMP)on 06-28-2016 Anion gap 6 mmol/L Invalid Interpretation Code 5-15 [employer] Work Phone: [phone] BUN/Creatinine Ratio 16.7 RATIO Invalid Interpretation Code 10-20 [employer] Work Phone: [phone] Calcium 8.6 mg/dL Invalid Interpretation Code 8.5-10.1 [employer] Work Phone: [phone] Chloride 106 mmol/L Invalid Interpretation Code 98-107 [employer] Work Phone: [phone] CO2 29.0 mmol/L Invalid Interpretation Code 21.0-32.0 [employer] Work Phone: [phone] Creatinine 1.02 mg/dL Invalid Interpretation Code 0.55-1.02 [employer] Work Phone: [phone] eGFR (non-black) 67 mL/min/{1.73_m2} Invalid Interpretation Code >60 [employer] Work Phone: [phone] eGFR (non-black) 55 mL/min/{1.73_m2} Low >60 [employer] Work Phone: [phone] Glucose mass conc 85 mg/dL Invalid Interpretation Code 70-110 [employer] Work Phone: [phone] Potassium molar conc 4.0 mmol/L Invalid Interpretation Code 3.5-5.1 [employer] Work Phone: [phone] Sodium 141 mmol/L Invalid Interpretation Code 136-145 [employer] Work Phone: [phone] Urea nitrogen 17 mg/dL Invalid Interpretation Code 7-18 [employer] Work Phone: [phone] Lab Report: CBC W/Diff, Auto matedon 06-28-2016 Absolute Neut 3.7 X10 3/UL Invalid Interpretation Code 2.0-7.7 [facility] Phone: [phone] Basophils/100 WBC Auto (Bld) 3.1 % High 0-1 [employer] Work Phone: [phone] Eosinophils/100 leukocytes 2.3 % Invalid Interpretation Code 0-5 [employer] Work Phone: [phone] Erythrocyte distribution width Auto Ratio (RBC) 13.4 % Invalid Interpretation Code 11.6-14.6 [employer] Work Phone: [phone] Erythrocytes (RBC) 4.40 10*6/uL Invalid Interpretation Code 4.2-5.4 [employer] Work Phone: [phone] Hematocrit (HCT) 40.9 % Invalid Interpretation Code 37-47 [employer] Work Phone: [phone] Hemoglobin mass conc (Bld) 13.2 g/dL Invalid Interpretation Code 12.0-15.0 [employer] Work Phone: [phone] Immature granulocytes/100 WBC (Bld) 0.200 % Invalid Interpretation Code 0.0-0.9 [employer] Work Phone: [phone] Lymphocytes 4.65 X10 3/UL High 0.83-4.51 [employer] Work Phone: [phone] Lymphocytes/100 leukocytes 47.3 % High 19-41 [employer] Work Phone: [phone] 30.0 pg Invalid Interpretation Code 27.0-32.0 [employer] Work Phone: [phone] MCHC mass conc (RBC) 32.3 G/GL Invalid Interpretation Code 32-36 [employer] Work Phone: [phone] 93.0 fL Invalid Interpretation Code 81-99 [employer] Work Phone: [phone] Monocytes/100 leukocytes 9.9 % Invalid Interpretation Code 0-10 [employer] Work Phone: [phone] Neutrophils/100 WBC Auto (Bld) 37.2 % Low 47-70 [employer] Work Phone: [phone] Platelets 357 10*3/mm3 Invalid Interpretation Code 150-450 [employer] Work Phone: [phone] PMV by Evelio 9.8 fL Invalid Interpretation Code 6.2-12.0 [facility] Phone: [phone] RDW SD 45.2 fL High 35.1-43.9 [employer] Work Phone: [phone] WBC (Leukocytes) 9.8 10*3/uL Invalid Interpretation Code 4.4-11.0 [employer] Work Phone: Lab Report: Lipid Profileon 06-28-2016 Cholesterol 160 mg/dL Invalid Interpretation Code 200 [employer] Work Phone: [phone] HDL Cholesterol 69 mg/dL Invalid Interpretation Code [employer] Work Phone: [phone] LDL Cholesterol 67 mg/dL Invalid Interpretation Code 0-130 [employer] Work Phone: [phone] Triglyceride 119 mg/dL Invalid Interpretation Code [employer] Work Phone: [phone] very low density lipoproteins 24 mg/dL Invalid Interpretation Code 5-40 [employer] Work Phone: [phone] Lab Report: Liver Profileon 06-28-2016 Alanine aminotransferase (ALT) U/L Low 12-78 [employer] Work Phone: [phone] Albumin 3.3 g/dL Low 3.4-5.0 [employer] Work Phone: [phone] Alkaline phosphatase (ALP) 80 U/L Invalid Interpretation Code 45-117 [employer] Work Phone: [phone] Aspartate aminotransferase (AST) 25 U/L Invalid Interpretation Code 15-37 [employer] Work Phone: [phone] Bilirubin (direct) 0.14 mg/dL Invalid Interpretation Code 0.00-0.30 [employer] Work Phone: [phone] Bilirubin (total) 0.60 mg/dL Invalid Interpretation Code 0.20-1.00 [facility] Phone: [phone] Globulin 3.5 g/dL Invalid Interpretation Code 2.3-3.5 [facility] Phone: [phone] Protein 6.8 g/dL Invalid Interpretation Code 6.4-8.2 [employer] Work Phone: [phone] Lab Report: Magnesiumon 06-18 Magnesium 2.1 mg/dL Invalid Interpretation Code 1.8-2.4 [facility] Phone: [phone] Office Visiton 01-03-2016 Tobacco use [facility] Never smoker Invalid Interpretation Code [facility] Phone: [phone] Office Visit: [facility] 06-25-19 16 General cardiovascular disease 10Y risk [#] [place].D'Agostino 11 % Invalid Interpretation Code [facility] Phone: [phone] External Other: [employer] thod of Contacton 11-23-2014 methcontact secmsg Invalid Interpretation Code [employer] Work Phone: [phone] Replaced Document: Aliya Esteban CG Observationson 11-23-2014 EKG QRS axis 67 deg Invalid Interpretation Code [employer] Work Phone: [phone] Interpretation Sinus Bradycardia Lo w voltage with rightward P-axis and rotation -possible pulmonary disease. ABNORMAL Invalid Interpretation Code [employer] Work Phone: [phone] P [place] 70 deg Invalid Interpretation Code [employer] Work Phone: [phone] AR Interval 152 ms Invalid Interpretation Code [employer] Work Phone: [phone] Pulse (Heart Rate) 51 /min Invalid Interpretation Code [employer] Work Phone: [phone] QRS Duration 100 ms Invalid Interpretation Code [employer] Work Phone: [phone] QT Interval new path ms Invalid Interpretation Code [employer] Work Phone: [phone] QTc Iglesias 403 ms Invalid Interpretation Code [employer] Work Phone: [phone] T [place] -1 deg Invalid Interpretation Code [employer] Work Phone: [phone] Lab Report: Vitamin D,25 Hyd roxyon 10-07-2014 Vitamin D 25-OH 42.1 ng/mL Invalid Interpretation Code [employer] Work Phone: [phone] Lab Report: (P) CBC W/Diff, Automatedon 10-06-2014 Absolute Neut 2.4 X10 3/UL Invalid Interpretation Code 2.0-7.7 [employer] Work Phone: [phone] Lymphocytes 5.60 X10 3/UL High 0.83-4.51 [employer] Work Phone: [phone] Lab Report: Thyroid Stim Hor sean (TSH)on 10-06-2014 Thyroid stimulating hormone (TSH) 3.86 u[iU]/mL High 0.358-3.74 [employer] Work Phone: [phone] Office Visit: [facility] 05-26-20 14 cardiac risk group B Invalid Interpretation Code [employer] Work Phone: [phone] Lab Report: B12on 10-20-2013 Cobalamins (Vitamin B12) 795 pg/mL Normal 211-911 [employer] Work Phone: [phone] Lab Report: CMPon 10-20-2013 Albumin/Globulin Ratio 0.9 {ratio} Normal 0.9-2.4 [facility] Work Phone: [phone] Replaced Document: [employer] E CG Observationson 05-21-2013 Pulse (Heart Rate) 403 ms Invalid Interpretation Code [facility] Work Phone: [phone] Lab Report: METHYL - copyon 12-05-2012 METHYL 212 nmol/L Normal 73-376 [facility] Work Phone: [phone] Lab Report: TPO - copyon thyroid microsomal antibody < 6 Normal 0-34 [facility] Work Phone: [phone] Lab Report: CRPon 12-02-2012 C reactive protein (CRP) mg/L Normal 0.0-3.0 [facility] Work Phone: [phone] Lab Report: SEDon 12-02-2012 Erythrocyte sedimentation rate 13 mm/h Normal 0-30 [facility] Work Phone: [phone] Lab Report: URICon 3 Urate 3.7 mg/dL Normal 2.6-6.0 [facility] Work Phone: [phone] Clinical Lists Update: Prelo command and control 08-20-2012 MCHC mass conc (RBC) 33.2 % Invalid Interpretation Code [facility] Work Phone: [phone] Anaerobic culture Bacteria identified Anaer cx Nom (Unsp spec) No anaerobic bacteria isolated. [facility] Work Phone: Bacteria identified Cx Nom ( Wound) Wound Culture Staphylococcus epidermidis [facility] Work Phone: Wound Culture Staphylococcus homin is hominis [facility] Work Phone: Gram stain for investigation of transfusion reaction Microscopic observation Gram stain Nom (Unsp spec) [facility] Work Phone: No Panel Information Influenza Types A,B Direct FA (ARIANNA) [facility] Work Phone: RSV Ag EIA RSV Ag Immune stain Ql (Tiss) [facility] Work Phone: Vital Signs Date Time Vital Sign Value Performing Clinician Facility 10-20-2024 10:52-0400 Body mass index (BMI) [Ratio] 18.08 kg/m2 Selvin Felder MD Work Phone: [facility] 10-20-2024 10:52-0400 Body weight 43.4 kg Selvin Felder MD Work Phone: [facility] 10-20-2024 10:52-0400 SaO2% (BldA) [Mass fraction] 96 % Selvin Felder MD Work Phone: [facility] 04-21-2024 11:14-0500 Body mass index (BMI) [Ratio] 18.41 kg/m2 Selvin Felder MD Work Phone: [facility] 04-21-2024 11:14-0500 Body weight 44.2 kg Selvin Felder MD Work Phone: [facility] 04-21-2024 11:14-0500 SaO2% (BldA) [Mass fraction] 96 % Selvin Felder MD Work Phone: [facility] 10-18-2023 09:38-0400 Body height 154.9 cm Selvin Felder MD Work Phone: [facility] 10-18-2023 09:38-0400 Body mass index (BMI) [Ratio] 18.2 kg/m2 Selvin Felder MD Work Phone: [facility] 10-18-2023 09:38-0400 Body weight 43.7 kg Selvin Felder MD Work Phone: [facility] 10-18-2023 09:38-0400 SaO2% (BldA) [Mass fraction] 95 % Selvin Felder MD Work Phone: [facility] 10-04-2023 08:57-0400 Heart rate 66 /min Dr. Howard Zimmerman Work Phone: [facility] 10-04-2023 08:54-0400 Diastolic blood pressure 48 mm[Hg] Dr. Howard Zimmerman Work Phone: [facility] 10-04-2023 08:54-0400 Systolic blood pressure 93 mm[Hg] Dr. Howard Zimmerman Work Phone: [facility] 10-04-2023 08:53-0400 Body temperature 97.5 [degF] Dr. Howard Zimmerman Work Phone: [facility] 10-04-2023 08:53-0400 Respiratory rate 16 /min Dr. Howard Zimmerman Work Phone: [facility] 10-04-2023 08:53-0400 SaO2% (BldA) [Mass fraction] 92 % Dr. Howard Zimmerman Work Phone: [phone] [place] [address] 10-02-2023 11:34-0400 Body mass index (BMI) [Ratio] 18.8 kg/m2 Dr. Howard Zimmerman Work Phone: [phone] [place] [address] 10-02-2023 11:34-0400 Body weight 43.[address] Howard Zimmerman Work Phone: [phone] [place] [address] 09-26-2023 13:36-0400 Body height 152.[address] Howard Zimmerman Work Phone: [phone] [place] [address] 09-19-2023 14:32-0400 Body mass index (BMI) [Ratio] 18.3 kg/m2 Dr. Howard Zimmerman Work Phone: [phone] [place] [address] 09-19-2023 14:32-0400 Body weight 42.[address] Howard Zimmerman Work Phone: [facility] 09-19-2023 14:32-0400 Diastolic blood pressure 69 mm[Hg] Dr. Howard Zimmerman Work Phone: [facility] 09-19-2023 14:32-0400 Heart rate 76 /min Dr. Howard Zimmerman Work Phone: [facility] 09-19-2023 14:32-0400 Respiratory rate 18 /min Dr. Howard Zimmerman Work Phone: [facility] 09-19-2023 14:32-0400 SaO2% (BldA) [Mass fraction] 96 % Dr. Howard Zimmerman Work Phone: [facility] 09-19-2023 14:32-0400 Systolic blood pressure 122 mm[Hg] Dr. Howard Zimmerman Work Phone: [facility] 09-14-2023 14:22-0400 Body temperature 97.9 [degF] Dr. Howard Zimmerman Work Phone: [facility] 09-14-2023 14:22-0400 Diastolic blood pressure 88 mm[Hg] Dr. Howard Zimmerman Work Phone: [facility] 09-14-2023 14:22-0400 Heart rate 84 /min Dr. Howard Zimmerman Work Phone: [facility] 09-14-2023 14:22-0400 Respiratory rate 16 /min Dr. Howard Zimmerman Work Phone: [facility] 09-14-2023 14:22-0400 SaO2% (BldA) [Mass fraction] 97 % Dr. Howard Zimmerman Work Phone: [facility] 09-14-2023 14:22-0400 Systolic blood pressure 133 mm[Hg] Dr. Howard Zimmerman Work Phone: [facility] 09-09-2023 10:43-0400 Body height 152.[address] Howard Zimmerman Work Phone: [facility] 09-09-2023 10:43-0400 Body weight 39.[address] Howard Zimmerman Work Phone: [facility] 09-08-2023 14:45-0400 Body mass index (BMI) [Ratio] 17.2 kg/m2 Dr. Howard Zimmerman Work Phone: [facility] 09-08-2023 13:40-0400 Body temperature 98.4 [degF] Dr. Howard Zimmerman Work Phone: [facility] 09-08-2023 13:40-0400 Diastolic blood pressure 98 mm[Hg] Dr. Howard Zimmerman Work Phone: [facility] 09-08-2023 13:40-0400 Heart rate 83 /min Dr. Howard Zimmerman Work Phone: [facility] 09-08-2023 13:40-0400 Respiratory rate 12 /min Dr. Howard Zimmerman Work Phone: [facility] 09-08-2023 13:40-0400 SaO2% (BldA) [Mass fraction] 95 % Dr. Howard Zimmerman Work Phone: [facility] 09-08-2023 13:40-0400 Systolic blood pressure 146 mm[Hg] Dr. Howard Zimmerman Work Phone: [facility] 09-08-2023 09:36-0400 Body height 157.[address] Howard Zimmerman Work Phone: [facility] 09-08-2023 09:36-0400 Body mass index (BMI) [Ratio] 17.2 kg/m2 Dr. Howard Zimmerman Work Phone: [facility] 09-08-2023 09:36-0400 Body weight 42.[address] Howard Zimmerman Work Phone: [facility] 08-17-2023 10:49-0500 Body temperature 97.3 [degF] Bart Brooks DO Work Phone: [facility] 08-17-2023 10:49-0500 Body weight 43.09 kg Bart Brooks DO Work Phone: [facility] 08-17-2023 10:49-0500 Diastolic blood pressure 64 mm[Hg] Bart Brooks DO Work Phone: [facility] 08-17-2023 10:49-0500 Heart rate 92 /min Bart Brooks DO Work Phone: [facility] 08-17-2023 10:49-0500 SaO2% (BldA) [Mass fraction] 96 % Bart Brooks DO Work Phone: [facility] 08-17-2023 10:49-0500 Systolic blood pressure 102 mm[Hg] Bart Brooks DO Work Phone: [facility] 07-28-2023 16:08-0500 Diastolic blood pressure 89 mm[Hg] Dr. Howard Zimmerman Work Phone: [facility] 07-28-2023 16:08-0500 Heart rate 83 /min Dr. Howard Zimmerman Work Phone: [facility] 07-28-2023 16:08-0500 Respiratory rate 16 /min Dr. Howard Zimmerman Work Phone: [facility] 07-28-2023 16:08-0500 SaO2% (BldA) [Mass fraction] 96 % Dr. Howard Zimmerman Work Phone: [facility] 07-28-2023 16:08-0500 Systolic blood pressure 160 mm[Hg] Dr. Howard Zimmerman Work Phone: [facility] 07-28-2023 09:14-0500 Body height 157.[address] Howard Zimmerman Work Phone: 0(616)550-464407 [place] [address] 07-28-2023 09:14-0500 Body mass index (BMI) [Ratio] 18.1 kg/m2 Dr. Howard Zimmerman Work Phone: [facility] 07-28-2023 09:14-0500 Body temperature 97 [degF] Dr. Howard Zimmerman Work Phone: [facility] 07-28-2023 09:14-0500 Body weight [address] Howard Zimmerman Work Phone: [facility] 06-29-2023 15:18-0500 Body height 157.[address] Howard Zimmerman Work Phone: [facility] 06-29-2023 15:18-0500 Body weight 41.[address] Howard Zimmerman Work Phone: 8(100)194-661507 [place] [address] 06-29-2023 08:51-0500 SaO2% (BldA) [Mass fraction] 96 % Dr. Howard Zimmerman Work Phone: [facility] 06-29-2023 08:44-0500 Body temperature 98 [degF] Dr. Howard Zimmerman Work Phone: [facility] 06-29-2023 08:44-0500 Diastolic blood pressure 84 mm[Hg] Dr. Howadr Zimmerman Work Phone: [facility] 06-29-2023 08:44-0500 Heart rate 71 /min Dr. Howard Zimmerman Work Phone: [facility] 06-29-2023 08:44-0500 Respiratory rate 14 /min Dr. Howard Zimmerman Work Phone: [facility] 06-29-2023 08:44-0500 Systolic blood pressure 113 mm[Hg] Dr. Howard Zimmerman Work Phone: [facility] 06-29-2023 05:42-0500 Body mass index (BMI) [Ratio] 16.6 kg/m2 Dr. Howard Zimmerman Work Phone: 3(540)211-133107 [place] [address] 06-28-2023 18:30-0500 Diastolic blood pressure 72 mm[Hg] Dr. Howard Zimmerman Work Phone: 6(596)393-489207 [place] [address] 06-28-2023 18:30-0500 Heart rate 99 /min Dr. Howard Zimmerman Work Phone: [facility] 06-28-2023 18:30-0500 Respiratory rate 18 /min Dr. Howard Zimmerman Work Phone: [facility] 06-28-2023 18:30-0500 Systolic blood pressure 116 mm[Hg] Dr. Howard Zimmerman Work Phone: [facility] 06-28-2023 16:00-0500 SaO2% (BldA) [Mass fraction] 95 % Dr. Howard Zimmerman Work Phone: [facility] 06-28-2023 12:17-0500 Body height 157.[address] Howard Zimmerman Work Phone: [facility] 06-28-2023 12:17-0500 Body mass index (BMI) [Ratio] 17 kg/m2 Dr. Howard Zimmerman Work Phone: [facility] 06-28-2023 12:17-0500 Body temperature 97.2 [degF] Dr. Howard Zimmerman Work Phone: [facility] 06-28-2023 12:170500 Body weight 42.[address] Howard Zimmerman Work Phone: [facility] 04-04-2023 [id number] Body height 152.4 cm Selvin Felder MD Work Phone: [facility] 04-04-2023 [id number] Body weight 44 kg Selvin Felder MD Work Phone: [facility] 04-04-2023 [id number] SaO2% (BldA) [Mass fraction] 98 % Selvin Felder MD Work Phone: [facility] 02-13-2023 11:24-0400 Body height 156 cm Bart Barbarai DO Work Phone: [facility] 02-13-2023 11:24-0400 Body temperature 97.5 [degF] Bart Masci DO Work Phone: [facility] 02-13-2023 11:240400 Body weight 43.55 kg Bart Masci DO Work Phone: [facility] 02-13-2023 11:24-0400 Diastolic blood pressure 81 mm[Hg] Bart Masci DO Work Phone: [facility] 02-13-2023 11:24-0400 Heart rate 89 /min Bart Masci DO Work Phone: [facility] 02-13-2023 11:24-0400 SaO2% (BldA) [Mass fraction] 97 % Bart Masci DO Work Phone: [facility] 02-13-2023 11:24-0400 Systolic blood pressure 111 mm[Hg] Bart Jimenezi DO Work Phone: [facility] 01-16-2023 12:07-0400 Body temperature 97.8 [degF] Dr. Howrad Zimmerman Work Phone: [facility] 01-16-2023 12:07-0400 Diastolic blood pressure 69 mm[Hg] Dr. Howard Zimmerman Work Phone: [facility] 01-16-2023 12:07-0400 Heart rate 70 /min Dr. Howard Zimmerman Work Phone: 5(493)698-616507 [place] [address] 01-16-2023 12:07-0400 Respiratory rate 16 /min Dr. Howard Zimmerman Work Phone: 7(885)267-921879 [address] 01-16-2023 12:07-0400 SaO2% (BldA) [Mass fraction] 98 % Dr. Howard Zimemrman Work Phone: 4(060)220-211207 [place] [address] 01-16-2023 12:07-0400 Systolic blood pressure 111 mm[Hg] Dr. Howard Zimmerman Work Phone: 4(414)346-642987 [place] [address] 01-15-2023 16:37-0400 Body height 152.[address] Howard Zimmerman Work Phone: 5(707)089-609987 [place] [address] 01-15-2023 16:37-0400 Body weight 42.[address] Howard Zimmerman Work Phone: 4(655)760-424987 [place] [address] 01-15-2023 13:23-0400 Body mass index (BMI) [Ratio] 18.3 kg/m2 Dr. Howard Zimmerman Work Phone: 8(927)824-301687 [place] [address] 01-15-2023 12:30-0400 Inhaled oxygen flow rate 1 L/min Dr. Howard Zimmerman Work Phone: 7(991)243-982187 [place] [address] 01-05-2023 16:09-0400 Body mass index (BMI) [Ratio] 18.3 kg/m2 Dr. Howard Zimmerman Work Phone: 6(678)952-929979 [address] 01-05-2023 16:09-0400 Body weight 43.[address] Howard Zimmerman Work Phone: 6(173)342-395287 [place] [address] 01-05-2023 16:09-0400 Diastolic blood pressure 86 mm[Hg] Dr. Howard Zimmerman Work Phone: 4(240)225-761687 [place] [address] 01-05-2023 16:09-0400 Heart rate 71 /min Dr. Howard Zimmerman Work Phone: 5(122)205-294079 [address] 01-05-2023 16:09-0400 Respiratory rate 16 /min Dr. Howard Zimmerman Work Phone: [facility] 01-05-2023 16:09-0400 Systolic blood pressure 158 mm[Hg] Dr. Howard Zimmerman Work Phone: [facility] 08-15-2022 11:13-0500 Body height 156.2 cm Bart Jimenezi DO Work Phone: [facility] 08-15-2022 11:13-0500 Body temperature 97 [degF] Bart Jimenezi DO Work Phone: [facility] 08-15-2022 11:13-0500 Body weight 45.59 kg Bart Jimenezi DO Work Phone: [facility] 08-15-2022 11:13-0500 Diastolic blood pressure 76 mm[Hg] Bart Jimenezi DO Work Phone: [facility] 08-15-2022 11:13-0500 Heart rate 48 /min Bart Jimenezi DO Work Phone: [facility] 08-15-2022 11:13-0500 Systolic blood pressure 120 mm[Hg] Bart Jimenezi DO Work Phone: [facility] 07-19-2022 09:48-0500 Body mass index (BMI) [Ratio] 19.8 kg/m2 Dr. Howard Zimmerman Work Phone: [facility] 07-19-2022 09:48-0500 Body temperature 96.2 [degF] Dr. Howard Zimmerman Work Phone: [facility] 07-19-2022 09:48-0500 Respiratory rate 16 /min Dr. Howard Zimmerman Work Phone: [facility] 07-19-2022 00:37-0500 Body weight 47.[address] Howard Zimmerman Work Phone: [facility] 07-19-2022 00:37-0500 Diastolic blood pressure 37 mm[Hg] Dr. Howard Zimmerman Work Phone: [facility] 07-19-2022 00:37-0500 Heart rate 54 /min Dr. Howard Zimmerman Work Phone: [facility] 07-19-2022 00:37-0500 Systolic blood pressure 90 mm[Hg] Dr. Howard Zimmerman Work Phone: [facility] 07-05-2022 15:39-0500 Body height 156.8 cm Sridevi Solo MD Work Phone: [facility] 07-05-2022 15:39-0500 Body weight 46.27 kg Sridevi Solo MD Work Phone: [facility] 07-05-2022 15:39-0500 Diastolic blood pressure 68 mm[Hg] Sridevi Solo MD Work Phone: [facility] 07-05-2022 15:39-0500 Heart rate 73 /min Sridevi Solo MD Work Phone: [facility] 07-05-2022 15:39-0500 SaO2% (BldA) [Mass fraction] 95 % Sridevi Solo MD Work Phone: [facility] 07-05-2022 15:39-0500 Systolic blood pressure 138 mm[Hg] Sridevi Solo MD Work Phone: [facility] 07-05-2022 09:40-0500 Body mass index (BMI) [Ratio] 19.8 kg/m2 Dr. Howard Zimmerman Work Phone: [facility] 07-05-2022 09:40-0500 Body temperature 96.4 [degF] Dr. Howard Zimmerman Work Phone: [facility] 07-05-2022 09:40-0500 Diastolic blood pressure 37 mm[Hg] Dr. Howard Zimmerman Work Phone: [facility] 07-05-2022 09:40-0500 Heart rate 54 /min Dr. Hoawrd Zimmerman Work Phone: [facility] 07-05-2022 09:40-0500 Systolic blood pressure 90 mm[Hg] Dr. Howard Zimmerman Work Phone: [facility] 06-23-2022 09:32-0500 Respiratory rate 16 /min Dr. Howard Zimmerman Work Phone: [facility] 06-18-2022 00:39-0500 Body weight 47.[address] Howard Zimmerman Work Phone: [facility] 06-14-2022 09:17-0500 Body mass index (BMI) [Ratio] 19.8 kg/m2 Dr. Howard Zimmerman Work Phone: [facility] 06-14-2022 09:17-0500 Body temperature 97.3 [degF] Dr. Howard Zimmerman Work Phone: 6(517)835-534707 [place] [address] 06-14-2022 09:17-0500 Diastolic blood pressure 66 mm[Hg] Dr. Howard Zimmerman Work Phone: 3(901)128-377007 [place] [address] 06-14-2022 09:17-0500 Heart rate 77 /min Dr. Howard Zimmerman Work Phone: [facility] 06-14-2022 09:17-0500 Systolic blood pressure 108 mm[Hg] Dr. Howard Zimmerman Work Phone: 1(234)813-798707 [place] [address] 06-07-2022 09:16-0500 Body height 154.[address] Howard Zimmerman Work Phone: 0(901)180-173207 [place] [address] 06-07-2022 09:16-0500 Body weight 47.[address] Howard Zimmerman Work Phone: [facility] 06-07-2022 09:16-0500 Respiratory rate 16 /min Dr. Howard Zimmerman Work Phone: [facility] 05-12-2022 10:42-0500 Body height 154.[address] Howard Zimmerman Work Phone: [facility] Work Phone: 05-12-2022 10:42-0500 Body mass index (BMI) [Ratio] 18.8 kg/m2 Dr. Howard Zimmerman Work Phone: [facility] 05-12-2022 10:42-0500 Body temperature 97.4 [degF] Dr. Howard Zimmerman Work Phone: 9(310)104-277307 [place] [address] 05-12-2022 10:42-0500 Body weight 45.[address] Hwoard Zimmerman Work Phone: 6(437)007-118907 [place] [address] 05-12-2022 10:42-0500 Diastolic blood pressure 66 mm[Hg] Dr. Howard Zimmerman Work Phone: 1(069)513-280607 [place] [address] 05-12-2022 10:42-0500 Heart rate 81 /min Dr. Howard Zimmerman Work Phone: 5(800)386-722087 [place] [address] 05-12-2022 10:42-0500 Respiratory rate 16 /min Dr. Howard Zimmerman Work Phone: 7(192)743-321087 [place] [address] 05-12-2022 10:42-0500 SaO2% (BldA) [Mass fraction] 99 % Dr. Howard Zimmerman Work Phone: 8(389)827-254407 [place] [address] 05-12-2022 10:42-0500 Systolic blood pressure 104 mm[Hg] Dr. Howard Zimmerman Work Phone: 1(692)409-835887 [place] [address] 04-14-2022 12:25-0400 Body height 154.[address] Howard Zimmerman Work Phone: 2(138)411-379807 [place] [address] Work Phone: 04-14-2022 12:25-0400 Body mass index (BMI) [Ratio] 19 kg/m2 Dr. Howard Zimmerman Work Phone: 7(177)010-669507 [place] [address] 04-14-2022 12:25-0400 Body temperature 96.3 [degF] Dr. Howard Zimmerman Work Phone: 4(345)138-722207 [place] [address] 04-14-2022 12:25-0400 Body weight 45.[address] Howard Zimmerman Work Phone: 9(038)166-404707 [place] [address] 04-14-2022 12:25-0400 Diastolic blood pressure 103 mm[Hg] Dr. Howard Zimmerman Work Phone: 9(659)909-832787 [place] [address] 04-14-2022 12:25-0400 Heart rate 94 /min Dr. Howard Zimmerman Work Phone: [facility] 04-14-2022 12:25-0400 Respiratory rate 18 /min Dr. Howard Zimmerman Work Phone: [facility] 04-14-2022 12:25-0400 SaO2% (BldA) [Mass fraction] 98 % Dr. Howard Zimmerman Work Phone: [facility] 04-14-2022 12:25-0400 Systolic blood pressure 149 mm[Hg] Dr. Howard Zimmerman Work Phone: [facility] 03-30-2022 10:30-0400 Body temperature 98.2 [degF] Dr. Howard Zimmerman Work Phone: [facility] 03-30-2022 10:30-0400 Diastolic blood pressure 64 mm[Hg] Dr. Howard Zimmerman Work Phone: [facility] 03-30-2022 10:30-0400 Heart rate 83 /min Dr. Howard Zimmerman Work Phone: [facility] 03-30-2022 10:30-0400 Respiratory rate 14 /min Dr. Howard Zimmerman Work Phone: [facility] 03-30-2022 10:30-0400 SaO2% (BldA) [Mass fraction] 97 % Dr. Howard Zimmerman Work Phone: [facility] 03-30-2022 10:30-0400 Systolic blood pressure 112 mm[Hg] Dr. Howard Zimmerman Work Phone: [facility] 02-14-2022 11:51-0400 Body height 156.8 cm Bart Brooks DO Work Phone: [facility] 02-14-2022 11:51-0400 Body temperature 97 [degF] Bart Brooks DO Work Phone: [facility] 02-14-2022 11:51-0400 Body weight 46.27 kg Bart Brooks DO Work Phone: [facility] 02-14-2022 11:51-0400 Diastolic blood pressure 90 mm[Hg] Bart Brooks DO Work Phone: [facility] 02-14-2022 11:51-0400 Heart rate 67 /min Bart Todd DO Work Phone: [facility] 02-14-2022 11:51-0400 Systolic blood pressure 147 mm[Hg] Bart Todd LEON Work Phone: [facility] 11-23-2021 13:17-0400 Body height 157.[address] Howard Zimmerman Work Phone: [facility] Work Phone: 11-23-2021 13:17-0400 Body weight 49.[address] Howard Zimmerman Work Phone: [facility] Work Phone: 11-23-2021 13:17-0400 Diastolic blood pressure 68 mm[Hg] Dr. Howard Zimmerman Work Phone: [facility] Work Phone: 11-23-2021 13:17-0400 Heart rate 64 /min Dr. Howard Zimmerman Work Phone: [facility] Work Phone: 11-23-2021 13:17-0400 Respiratory rate 18 /min Dr. Howard Zimmerman Work Phone: [facility] Work Phone: 11-23-2021 13:17-0400 Systolic blood pressure 140 mm[Hg] Dr. Howard Zimmerman Work Phone: [facility] Work Phone: 11-23-2021 13:17-0400 Body height 157.[address] Howard Zimmerman Work Phone: [facility] Work Phone: 11-23-2021 13:17-0400 Body weight 49.[address] Howard Zimmerman Work Phone: [facility] Work Phone: 11-23-2021 13:17-0400 Diastolic blood pressure 68 mm[Hg] Dr. Howard Zimmerman Work Phone: [facility] Work Phone: 11-23-2021 13:17-0400 Heart rate 64 /min Dr. Howard Zimmerman Work Phone: [facility] Work Phone: 11-23-2021 13:17-0400 Respiratory rate 18 /min Dr. Howard Zimmerman Work Phone: [facility] Work Phone: 11-23-2021 13:17-0400 Systolic blood pressure 140 mm[Hg] Dr. Howard Zimmerman Work Phone: [facility] Work Phone: 09-19-2021 14:33-0400 Body height 158 cm Sridevi Solo MD Work Phone: [facility] 09-19-2021 14:33-0400 Body weight 48.53 kg Sridevi Solo MD Work Phone: [facility] 09-19-2021 14:33-0400 Diastolic blood pressure 70 mm[Hg] Sridevi Solo MD Work Phone: [facility] 09-19-2021 14:33-0400 Heart rate 86 /min Sridevi Solo MD Work Phone: [facility] 09-19-2021 14:33-0400 SaO2% (BldA) [Mass fraction] 97 % Sridevi Solo MD Work Phone: [facility] 09-19-2021 14:33-0400 Systolic blood pressure 142 mm[Hg] Sridevi Solo MD Work Phone: [facility] 11-22-2020 13:01-0400 Body mass index (BMI) [Ratio] 19.3 kg/m2 Dr. Howard Zimmerman Work Phone: [facility] Work Phone: 11-22-2020 13:01-0400 Body mass index (BMI) [Ratio] 19.3 kg/m2 Dr. Howard Zimmerman Work Phone: [facility] Work Phone: 05-27-2019 09:30-0500 Body temperature 97.81 [degF] Brandon [...] Phone: 2019 13:58-0500 Height 157.5 cm [facility] [place] [facility] 13:56-0500 BMI (Body Mass Index) 19.74 kg/m2 Brandon [facility], [place] 2019 13:56-0500 Body Temperature 98.6 [degF] [facility] [place] [facility] 13:56-0500 Body weight 48.94 kg Brandon [facility] , [place] 2019 13:56-0500 BP Diastolic 95 mm[Hg] [facility] , [place] 2019 13:56-0500 BP Systolic 170 mm[Hg] [facility] [place] [facility] [place] 2019 13:56-0500 Pulse (Heart Rate) 59 /min [place], [place] 2019 13:56-0500 Pulse Oximetry 95 % [facility] , [place] 2019 13:56-0500 Respiratory Rate 16 /[facility] [place] 01-08-2017 13:29-0400 BMI (Body Mass Index) 20.19 [...] 13:29-0400 Weight 51.71 kg Amy Reagan RN [facility] Work Phone: 06-26-2016 13:50-0500 BSA (Body Surface Area) 1.52 m2 Amy Reagan RN [facility] Work Phone: Encounters Encounter Date Encounter Type Care Provider Facility Start: 10-23-2024 ambulatory [facility] Facility:[facility] Start: 10-23-2024 Registered Ref[facility] Start: 10-22-2024 End: 10-22-[address] Howard Zimmerman MD Work Phone: [facility] Work Phone: Start: 10-22-2024 End: 10-22-2024 Departed Referred [facility]ly [facility] Start: 10-22-2024 End: 10-22-2024 ambulatory [facility] Facility:[facility] Start: 10-20-2024 End: 10-20-2024 Office outpatient visit 25 minutes Selvin Felder MD Work Phone: Neurology Comment on above: Parkinson's disease 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) (Primary Dx); Neurogenic orthostatic hypotension (HCC) Start: 10-20-2024 End: 10-20-2024 ambulatory SELVIN FELDER Facility:[facility] Start: 09-18-2024 End: 09-18-2024 [facility] Start: 09-18-2024 [facility]istered [facility] Start: 09-18-2024 End: 09-18-2024 ambulatory [facility] Facility:[facility] Start: 09-11-2024 End: 09-11-[address] Howard Zimmerman MD Work Phone: [facility] Work Phone: Start: 09-11-2024 End: 09-11-2024 [facility] Start: 09-11-2024 Registered Referred Odalis SaeedJarod [facility] Start: 09-11-2024 End: 09-11-2024 ambulatory Howard Chi Erasmo Facility:[facility] Start: 08-26-2024 End: 08-26-2024 ambulatory Howard Chi Erasmo Facility:[facility] Start: 08-26-2024 End: 08-26-[address] Odalis Saravia MD -[facility] Work Phone: Start: 08-14-2024 End: 08-14-[address] Howard Zimmerman MD Work Phone: [facility] Work Phone: Start: 08-14-2024 End: 08-14-2024 [facility]ed [facility] Start: 08-14-2024 End: 08-14-2024 ambulatory Howard Chi Erasmo Facility:[facility] Start: 07-31-2024 End: 07-31-2024 ambulatory Pam Pack [employer]PER Facility:[facility] Start: 07-31-2024 End: 07-31-2024 Patient encounter procedure Pam Pack [employer]- -[facility] Work Phone: Start: 07-17-2024 ambulatory Howard Chi Erasmo Facility:[facility] Start: 07-17-2024 [facility]istered [facility] Start: 07-01-2024 End: 07-01-2024 ambulatory Howard Chi Erasmo Facility:[facility] Start: 07-01-2024 End: 07-01-[address] [facility]: Start: 06-26-2024 End: 06-26-2024 [facility]ed [facility] Start: 06-26-2024 End: 06-26-2024 ambulatory Howard Chi Erasmo Facility:[facility] Start: 06-19-2024 ambulatory Howard Chi Erasmo Facility:[facility] Start: 06-19-2024 Registered [facility] Start: 06-17-2024 End: 06-17-2024 ambulatory Howard Chi Erasmo Facility:[facility] Start: 06-17-2024 End: 06-17-[address] Odalis Saravia MD -[facility] Work Phone: Start: 06-10-2024 End: 06-10-2024 Dep[facility]ed [facility] Start: 06-10-2024 End: 06-10-2024 ambulatory Howard Chi Erasmo Facility:[facility] Start: 05-29-2024 End: 05-29-2024 ambulatory Pam Pack [employer] Facility:[facility] Start: 05-29-2024 End: 05-29-2024 Patient encounter procedure Pam Pack [employer]- -[facility] Work Phone: Start: 05-22-2024 End: 05-22-2024 Departed Referred Odalis Saraiva MD [facility] Start: 05-22-2024 End: 05-22-2024 ambulatory Howard Chi Erasmo Facility:[facility] Start: 05-14-2024 End: 05-14-2024 ambulatory Pam Pack [employer] Facility:[facility] Start: 05-14-2024 End: 05-14-2024 Emergency department patient visit Howard Chi Erasmo Facility:[facility] Start: 05-07-2024 End: 05-07-2024 ambulatory Pam Pack [employer] Facility:[facility] Start: 04-24-2024 ambulatory Odalis Riverai ty:[facility] Start: 04-22-2024 End: 04-22-2024 ambulatory Howard Chi Erasmo Facility:[facility] Start: 04-21-2024 End: 04-21-2024 Telephone encounter Selvin Felder MD Work Phone: Neurology Comment on above: Appointment Start: 04-21-2024 End: 04-21-2024 ambulatory SELVIN FELDER Facility:[facility] Start: 04-21-2024 End: 04-21-2024 Office outpatient visit 25 minutes Selvin Felder MD Work Phone: Neurology Comment on above: Parkinson's disease 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) Start: 03-21-2024 End: 03-21-2024 ambulatory Pam Pack [employer] Facility:[facility] Start: 03-20-2024 ambulatory Efewongbe Zeb he OLS Facility:[facility] Start: 03-13-2024 End: 03-13-2024 ambulatory Efewongbe Oleghe OLS Facility:[facility] Start: 03-06-2024 End: 03-06-2024 ambulatory Efewongbe Oleghe OLS Facility:[facility] Start: 03-04-2024 End: 03-04-2024 ambulatory Efewongbe Oleghe OLS Facility:[facility] Start: 02-28-2024 ambulatory Efewongbe Zeb he OLS Facility:[facility] Start: 02-26-2024 End: 02-26-2024 ambulatory Efewongbe Oleghe Facility:[facility] Start: 02-21-2024 ambulatory Efewongbe Zeb he OLS Facility:[facility] Start: 02-14-2024 ambulatory Efewongbe Oleghe Facili ty:[facility] Start: 02-13-2024 End: 02-13-2024 ambulatory Pam Pack [employer] Facility:[facility] Start: 02-07-2024 End: 02-07-2024 ambulatory Pam Pack [employer] Facility:[facility] Start: 01-31-2024 ambulatory Efewongbe Oleghe Facili ty:[facility] Start: 01-29-2024 End: 01-29-2024 Emergency department patient visit Peter Goodwin Facility:[facility] Start: 01-24-2024 ambulatory Efewongbe Zeb he OLS Facility:[facility] Start: 01-17-2024 ambulatory Efewongbe Zeb he OLS Facility:[facility] Start: 01-10-2024 ambulatory Efewongbe Zeb he OLS Facility:[facility] Start: 01-03-2024 ambulatory Efewongbe Zeb he OLS Facility:[facility] Start: 01-01-2024 End: 01-01-2024 ambulatory Efewongbe Oleghe Facility:[facility] Start: 12-27-2023 ambulatory Odalis MERCER Facility:[facility] Start: 12-26-2023 End: 12-26-2023 ambulatory Pam Pack [employer] Facility:[facility] Start: 12-22-2023 End: 12-22-2023 ambulatory Ethan Kim Facility:[facility] Start: 12-22-2023 ambulatory Naresh Blanchard Facility:[facility] Start: 12-22-2023 End: 12-25-2023 Evaluation and management of inpatient Naresh Blanchard Facility:[facility] Start: 12-21-2023 End: 12-21-2023 [facility] Start: 12-07-2023 End: 12[facility]07[facility] Start: 11-29-2023 End: 11-29-2023 Emergency department patient visit [facility] Facility:[facility] Start: 11-22-2023 End: 11-23-2023 [facility] Start: 10-18-2023 End: 10-18-2023 Office outpatient visit 25 minutes Selvin Felder MD Work Phone: Neurology Comment on above: Parkinson's disease 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) (Primary Dx) Start: 10-17-[address] Howard almaraz Work Phone: [facility] Start: 10-17-2023 Dr. Howard Zimmerman Work Phone: [facility] Start: 10-05-2023 End: 10-05-[address] Howard Zimmerman Work Phone: [facility] Work Phone: Start: 10-05-2023 End: 10-05-[address] Howard Zimmerman Work Phone: [facility] Start: 10-05-2023 End: 10-05-2023 Dr. Howard Zimmerman Work Phone: [facility] Start: 09-19-2023 End: 09-19-[address] Howard Zimmerman Work Phone: [facility] Work Phone: Start: 09-19-2023 End: 09-19-2023 Dr. Howard Zimmerman Work Phone: [facility] Work Phone: Start: 09-14-2023 End: 10-04-2023 Evaluation and management of inpatient Dr. Howard Zimmerman [facility] Start: 09-14-2023 End: 10-04-2023 Dr. Howard Zimmerman [facility] Start: 09-14-2023 Non-patient / Non-visit Dr. Keith Zimmerman Work Phone: [facility] Work Phone: Start: 09-14-2023 Dr. Howard Zimmerman Work Phone: [facility] Work Phone: Start: 09-13-2023 Non-patient / Non-visit Dr. Keith Zimmerman Work Phone: [facility] Work Phone: Start: 09-13-2023 Dr. Howard Zimmerman Work Phone: [facility] Work Phone: Start: 09-12-2023 Non-patient / Non-visit Dr. Keith Zimmerman Work Phone: [facility] Work Phone: Start: 09-12-2023 Dr. Howard Zimmerman Work Phone: [facility] Work Phone: Start: 09-11-2023 Non-patient / Non-visit Dr. Keith Zimmerman Work Phone: [facility] Work Phone: Start: 09-11-2023 Dr. Howard Zimmerman Work Phone: [facility] Work Phone: Start: 09-10-2023 Non-patient / Non-visit Dr. Keith Zimmerman Work Phone: [facility] Work Phone: Start: 09-10-2023 Dr. Howard Zimmerman Work Phone: [facility] Work Phone: Start: 09-09-2023 Non-patient / Non-visit Dr. Keith Zimmerman Work Phone: [facility] Work Phone: Start: 09-09-2023 Dr. Howard Zimmerman Work Phone: [facility] Work Phone: Start: 09-08-2023 Non-patient / Non-visit Dr. Keith Zimmerman Work Phone: [facility] Work Phone: Start: 09-08-2023 Dr. Howard Zimmerman Work Phone: [facility] Work Phone: Start: 09-08-2023 End: 09-14-2023 Evaluation and management of inpatient Dr. Howard Zimmerman Work Phone: [facility]-Medical Surgical 3 Work Phone: Start: 09-08-2023 End: 09-14-[address] Howard Zimmerman Work Phone: [facility] Work Phone: Start: 09-08-2023 End: 09-14-2023 Dr. Howard Zimmerman [facility] Work Phone: Start: 09-05-2023 End: 09-05-[address] Howard Zimmerman Work Phone: [facility] Work Phone: Start: 09-05-2023 End: 09-05-[address] Howard Zimmerman Work Phone: [facility]-Physical Therapy Work Phone: Start: 09-05-[address] Howard rodriguez Work Phone: [facility]-Physical Therapy Work Phone: Start: 09-05-2023 Dr. Howard Zimmerman Work Phone: [facility]-Physical Therapy Work Phone: Start: 08-22-[address] Howard rodriguez Work Phone: [facility]-Physical Therapy Work Phone: Start: 08-21-2023 End: 08-21-[address] Howard Zimmerman Work Phone: [facility] Work Phone: Start: 08-21-2023 End: 08-21-[address] Howard Zimmerman [facility] Flr Start: 08-21-2023 End: 08-21-2023 Dr. Howard Zimmerman Work Phone[facility] 3[facility] Flr Start: 08-20-2023 End: 08-20-[address] Howard Zimmerman Work Phone: [facility] Work Phone: Start: 08-20-2023 End: 08-20-[address] Howard Zimmerman [facility] Flr Start: 08-20-2023 End: 08-20-2023 Dr. 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 Howard Zimmerman Work Phone: [facility] Work Phone: Start: 08-01-2023 End: 08-01-[address] Howard Zimmerman [facility]: Start: 08-01-2023 End: 08-01-2023 Dr. Howard Zimmerman Work Phone[facility]: Start: 08-01-[address] Howard rodriguez Work Phone: [facility]-Physical Therapy Work Phone: Start: 07-30-2023 Refill Selvin ortiz MD Work Phone: [facility] Comment on above: Refill Request Start: 07-28-2023 End: 07-28-2023 Emergency department patient visit Dr. Howard Zimmerman Work Phone: [facility]-Emergency Department Work Phone: Start: 07-28-2023 End: 07-28-2023 Dr. Howard Zimmerman Work Phone: [facility]-Emergency Department Work Phone: Start: 07-25-[address] Howard rodriguez Work Phone: [facility]-Physical Therapy Work Phone: Start: 07-10-[address] Howard almaraz Work Phone: [facility]-Cardiovascul ar Services Work Phone: Start: 07-10-2023 Dr. Howard Zimmerman Work Phone[facility] Work Phone: Start: 07-10-2023 Non-patient / Non-visit Dr. Keith Zimmerman Work Phone: [facility] Work Phone: Start: 07-10-2023 Dr. Howard Zimmerman Work Phone: [facility] Work Phone: Start: 06-29-2023 Non-patient / Non-visit Dr. Keith Zimmerman Work Phone: [facility] Work Phone: Start: 06-29-2023 Dr. Howard Zimmerman Work Phone: [facility] Work Phone: Start: 06-29-2023 Non-patient / Non-visit Dr. Keith Zimmerman Work Phone: [facility] Start: 06-29-2023 Dr. Howard Zimmerman Work Phone: [facility] Start: 06-28-2023 End: 06-29-2023 Evaluation and management of inpatient Dr. Howard Zimmerman Work Phone: [facility]-Progressive Care Unit Work Phone: Start: 06-28-2023 End: 06-29-[address] Howard Zimmerman Work Phone: [facility] Work Phone: Start: 06-28-2023 Non-patient / Non-visit Dr. Keith Zimmerman Work Phone: [facility] Work Phone: Start: 06-28-2023 End: 06-29-2023 Dr. Howard Zimmerman Work Phone: [facility]-Progressive Care Unit Work Phone: Start: 06-27-[address] Howard rodriguez Work Phone: [facility]-Physical Therapy Work Phone: Start: 05-30-2023 Registered Recurring [facility]-Physical Therapy Work Phone: Start: 05-28-2023 End: 05-28-2023 ambulatory [facility] Work Phone: Start: 05-28-2023 End: 05-28-2023 Patient encounter procedure [facility]-Laboratory, Phy Office 3rd Flr Start: 05-18-2023 Telephone encounter Selvin laird MD Work Phone: [facility] Comment on above: Patient Question Start: 05-15-2023 End: 05-15-2023 ambulatory [facility] Work Phone: Start: 05-15-2023 End: 05-15-[address] Howard Zimmerman Work Phone: [facility]-Pulmonary Services/Neurology Work Phone: Start: 05-14-2023 End: 05-14-[address] Howard Zimmerman Work Phone: [facility] Work Phone: Start: 05-14-2023 End: 05-14-[address] Howard Zimmerman [facility] 3[facility] Flr Start: 05-09-[address] Howard rodriguez Work Phone: [facility]-Physical Therapy Work Phone: Start: 05-08-2023 End: 05-08-[address] Howard Zimmerman Work Phone: [facility] Work Phone: Start: 05-08-2023 End: 05-08-[address] Howard Zimmerman Work Phone: [facility]-Laboratory Work Phone: Start: 05-04-[address] Howard rodriguez Work Phone: [facility]-Physical Therapy Work Phone: Start: 05-03-2023 End: 05-03-[address] Howard Zimmerman Work Phone: [facility] Work Phone: Start: 05-03-2023 End: 05-03-[address] Howard Zimmerman Work Phone: [facility]-Radiology, [facility] Work Phone: Start: 04-25-[address] Howard rodriguez Work Phone: [facility]-Physical Therapy Work Phone: Start: 04-23-2023 End: 04-23-[address] Howard Zimmerman Work Phone: [facility] Work Phone: Start: 04-23-2023 End: 04-23-[address] Howard Zimmerman Work Phone: [facility]-Cat Scan, [facility] Work Phone: Start: 04-04-2023 End: 04-04-2023 Office outpatient visit 25 minutes Selvin Felder MD Work Phone: Neurology Comment on above: Parkinson's disease without dyskinesia or fluctuating manifestations (Primary Dx) Start: 04-02-2023 End: 04-02-[address] Howard Zimmerman Work Phone: [facility] Work Phone: Start: 04-02-2023 End: 04-02-[address] Howard Zimmerman Work Phone: [facility]-Laboratory, Phy Office 3rd Flr Start: 03-28-[address] Howard rodriguez Work Phone: [facility]-Occupational Therapy Work Phone: Start: 03-01-2023 End: 03-01-[address] Howard Zimmerman Work Phone: [facility] Work Phone: Start: 03-01-2023 End: 03-01-[address] Howard Zimmerman Work Phone: [facility]-Cat Scan, [facility] Work Phone: Start: 02-21-2023 End: 02-21-[address] Howard Zimmerman Work Phone: [facility] Work Phone: Start: 02-21-2023 End: 02-21-[address] Howard Zimmerman Work Phone: [facility]-Laboratory, Phy Office 3rd Flr Start: 02-21-[address] 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 Keith Zimmerman Work Phone: [facility] Work Phone: Start: 01-15-2023 Non-patient / Non-visit Dr. Keith Zimmerman Work Phone: [facility] Work Phone: Start: 01-15-2023 Non-patient / Non-visit Dr. Keith Zimmerman Work Phone: [facility] Start: 01-15-2023 End: 01-16-2023 Evaluation and management of inpatient Dr. Howard Zimmerman Work Phone: [facility]-Progressive Care Unit Work Phone: Start: 01-15-2023 End: 01-16-[address] Howard Zimmerman Work Phone: [facility] Work Phone: Start: 01-05-2023 End: 01-05-[address] Howard Zimmerman Work Phone: [facility] Work Phone: Start: 12-08-2022 End: 12-08-2022 ambulatory [facility] Work Phone: Start: 12-08-2022 End: 12-08-2022 Patient encounter procedure [facility]-Pulmonary Services/Neurology Start: 11-29-2022 End: 11-29-2022 ambulatory [facility] Work Phone: Start: 11-29-2022 End: 11-29-2022 Patient encounter procedure [facility]-Pulmonary Services/Neurology Start: 11-20-2022 Telephone encounter Selvin laird MD Work Phone: [facility] Comment on above: Patient Request Start: 10-20-2022 End: 10-20-2022 ambulatory [facility] Work Phone: Start: 10-20-2022 End: 10-20-2022 Patient encounter procedure [facility]-Radiology, [facility] Start: 09-19-2022 End: 09-19-[address] Howard Zimmerman Work Phone: [facility] Work Phone: Start: 09-19-2022 End: 09-19-[address] Howard Zimmerman Work Phone: [facility]-Physical Therapy Start: 08-30-2022 End: 08-30-[address] Howard Zimmerman Work Phone: [facility] Work Phone: Start: 08-30-2022 End: 08-30-[address] Howard Zimmerman Work Phone: [facility]-Laboratory Start: 08-29-2022 End: 08-29-[address] Howard Zimmerman Work Phone: [facility] Work Phone: Start: 08-29-2022 End: 08-29-[address] Howard Zimmerman [facility] Start: 08-29-[address] 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 Keith Zimmerman Work Phone: [facility] Start: 07-19-2022 End: 07-20-[address] Howard Zimmerman Work Phone: [facility] Work Phone: Start: 07-19-2022 End: 07-20-[address] 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) Start: 07-06-2022 Telephone encounter Sridevi Solo MD Work Phone: [facility] Comment on above: Clarify Sinemet Symptom Management ( Biting tongue) Start: 07-05-2022 End: 07-05-2022 Patient encounter procedure Sridevi Solo MD Work Phone: [facility] Comment on above: Parkinson's disease (HCC) (Primary Dx); Abnormality of gait; RBD (REM behavioral disorder); 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 Keith Zimmerman Work Phone: [facility] Start: 07-05-2022 End: 07-18-[address] Howard Zimmerman Work Phone: [facility] Work Phone: Start: 07-05-2022 End: 07-18-[address] [facility] Start: 06-30-2022 End: 06-30-2022 Subsequent hospital visit by physician Screen Mammo [facility] M[facility] Comment on above: Encounter for screen ing mammogram for malignant neoplasm of breast [Z12.31] Start: 06-28-2022 Non-patient / Non-visit Dr. Keith Zimmerman Work Phone: [facility] Start: 06-23-2022 Non-patient / Non-visit Dr. Keith Zimmerman Work Phone: [facility] Start: 06-14-2022 Non-patient / Non-visit Dr. Keith Zimmerman Work Phone: [facility] Start: 06-14-2022 End: 06-17-[address] Howard Zimmerman Work Phone: [facility] Work Phone: Start: 06-14-2022 End: 06-17-[address] Howard Zimmerman [facility] Start: 06-07-2022 Non-patient / Non-visit Dr. Keith Zimmerman Work Phone: [facility] Start: 06-01-2022 End: 06-01-[address] Howard Zimmerman Work Phone: [facility] Work Phone: Start: 06-01-2022 End: 06-01-[address] Howard Zimmerman Work Phone: [facility]-Laboratory, Specimen Start: 05-25-2022 End: 05-25-[address] Howard Zimmerman Work Phone: [facility] Work Phone: Start: 05-25-2022 End: 05-25-[address] Howard Zimmerman Work Phone: [facility]-Laboratory, Phy Office 3rd Flr Start: 05-12-2022 End: 05-12-2022 Emergency department patient visit Dr. Howard Zimmerman Work Phone: [facility]-Emergency Department Start: 04-19-2022 End: 04-19-[address] Howard Zimmerman Work Phone: [facility]-Laboratory, Phy Office 3rd Flr Start: 04-14-2022 End: 04-14-2022 Emergency department patient visit Dr. Howard Zimmerman Work Phone: [facility]-Emergency Department Start: 04-10-2022 End: 04-10-[address] Howard Zimmerman Work Phone: [facility] Work Phone: Start: 04-10-2022 End: 04-10-[address] Howard Zimmerman Work Phone: [facility] Start: 04-07-2022 End: 04-07-[address] Howard Zimmerman Work Phone: [facility] Work Phone: Start: 04-07-2022 End: 04-07-[address] Howard Zimmerman Work Phone: [facility]-Pulmonary Services/Neurology Start: 04-06-2022 End: 04-06-[address] Howard Zimmerman Work Phone: [facility] Work Phone: Start: 04-06-2022 End: 04-06-[address] Howard Zimmerman Work Phone: [facility] Start: 04-04-2022 Telephone encounter Irasema Armenta MD Work Phone: OB/Gynecology Comment on above: Orders Start: 03-30-2022 End: 03-30-[address] Howard Zimmerman Work Phone: [facility] Start: 03-08-2022 Telephone encounter Bart cassidy DO Work Phone: Hematology/Oncology Comment on above: Results (CT A/P) Start: 03-07-2022 End: 03-07-[address] Howard Zimmerman Work Phone: [facility] Work Phone: Start: 03-07-2022 End: 03-07-[address] Howard Zimmerman [facility] Start: 03-06-2022 End: 03-06-[address] Howard Zimmerman Work Phone: [facility] Work Phone: Start: 03-06-2022 End: 03-06-[address] 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 Howard Zimmerman [facility] Start: 12-05-2021 Telephone encounter Bart cassidy DO Work Phone: Hematology/Oncology Comment on above: Patient Update Start: 11-23-2021 End: 11-23-[address] Howard Zimmerman Work Phone: [facility] Start: 11-21-2021 End: 11-21-[address] 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 Howard Zimmerman MD Work Phone: Comment on above: Vitamin D StatusDefi ciency: <20 ng/mL (50nmol/L)Insufficiency: 20-30 ng/mL (50-75 nmol/L)Sufficiency: 30-100 ng/mL (75-250 nmol/L)Toxicity: >100 ng/mL (>250 nmol/L) Start: 10-22-[address] Howard Zimmerman MD Work Phone: Start: 10-22-[address] cell [address] Howard Zimmerman MD Work Phone: Start: 09-18-2024 Vitamin D, 25-hydrox y measurement Dr. Howard Zimmerman MD Work Phone: Comment on above: Vitamin D StatusDefi ciency: <20 ng/mL (50nmol/L)Insufficiency: 20-30 ng/mL (50-75 nmol/L)Sufficiency: 30-100 ng/mL (75-250 nmol/L)Toxicity: >100 ng/mL (>250 nmol/L) Start: 09-11-[address] Howard Zimmerman MD Work Phone: Start: 08-14-[address] Howard Zimmerman MD Work Phone: Start: 07-17-2024 Measurement of renal function Dr. Howard Zimmerman MD Work Phone: Comment on above: GFR Calc Start: 07-17-[address] Howard Zimmerman MD Work Phone: Start: 09-08-2023 Plain x-ray of pelvi s and lower extremity Dr. Howard Zimmerman Work Phone: Start: 09-08-2023 Plain chest X-ray Dr. Jarad Zimmerman Work Phone: Start: 09-08-2023 CT cervical spine wi thout contrast Dr. Howard Zimmerman Work Phone: Start: 09-08-2023 CT of head without contrast Dr. Howard Zimmerman Work Phone: Start: 08-21-[address] Howard rodriguez Work Phone: Start: 07-28-2023 Plain x-ray of wrist Dr Liu Zimmerman Work Phone: Start: 07-28-2023 CT of head without contrast Dr. Howard Zimmerman Work Phone: Start: 06-28-2023 MRI of brain without contrast Dr. Howard Zimmerman Work Phone: Start: 06-28-2023 Plain chest X-ray Dr. Jarad Zimmerman Work Phone: Start: 06-28-2023 CT angiography of he ad and neck Dr. Howard Zimmerman Work Phone: Start: 06-28-2023 CT of head without contrast Dr. Howard Zimmerman Work Phone: Start: 05-15-2023 Coronavirus COVID-[address] Howard Zimmerman Work Phone: Start: 05-15-2023 Influenza Types A,B Direct FA (ARIANNA) Dr. Howard Zimmerman Work Phone: Start: 05-15-2023 Respiratory syncytia l virus antigen assay Dr. Howard Zimmerman Work Phone: Start: 05-14-2023 Diagnostic radiograp hy of abdomen, decubitus and erect Dr. Howard Zimmerman Work Phone: Start: 05-14-[address] Howard rodriguez Work Phone: Start: 05-03-2023 Plain x-ray of hand Dr. Howard Zimmerman Work Phone: Start: 05-03-2023 Plain x-ray of humerus Dr. Howard Zimmerman Work Phone: Start: 05-03-2023 Plain x-ray of pelvi s and lower extremity Dr. Howard Zimmerman Work Phone: Start: 05-03-2023 Radiography of sacrococcygeal spine Dr. Howard Zimmerman Work Phone: Start: 05-03-2023 X-ray of radius and ulna Dr. Howard Zimmerman Work Phone: Start: 04-23-2023 CT of head without contrast Dr. Howard Zimmerman Work Phone: Start: 03-01-2023 CT of head without contrast Dr. Howard Zimmerman Work Phone: Start: 01-15-2023 MRI of brain without contrast Dr. Howard Zimmerman Work Phone: Start: 01-15-2023 Plain chest X-ray Dr. Jarad Zimmerman Work Phone: Start: 01-15-2023 CT angiography of he ad and neck Dr. Howard Zimmerman Work Phone: Start: 01-15-2023 CT of head without contrast Dr. Howard Zimmerman Work Phone: Start: 12-08-2022 Influenza Types A,B Direct FA (ARIANNA) Start: 12-08-2022 Respiratory syncytia l virus antigen assay Start: 10-20-2022 Radiography of ankle Start: 10-20-2022 Plain x-ray of pelvi s and lower extremity Start: 06-30-2022 Screening mammograph y bi 2-view breast inc cad Irasema Armenta MD Work Phone: Start: 05-12-2022 Plain chest X-ray Dr. Jarad Zimmerman Work Phone: Start: 04-14-2022 Radiography of sacrococcygeal spine Dr. Howard Zimmerman Work Phone: Start: 04-10-2022 Plain chest X-ray Dr. Jarda Zimmerman Work Phone: Start: 04-06-2022 Plain chest X-ray Dr. Jarad Zimmerman Work Phone: Start: 03-06-2022 Diagnostic radiograp hy of abdomen Dr. Howard Zimmerman Work Phone: Start: 03-06-2022 Plain x-ray of pelvi s and lower extremity Dr. Howard Zimmerman Work Phone: Start: 2019 Basic metabolic pane l calcium total Yoana R [place] Work Phone: Start: 2019 Blood count complete automated Yonaa R Oumou Work Phone: Start: 05-07-2017 End: 05-07-2017 Ecg routine ecg w/least 12 lds w/i&r Tiago Vigil MD Start: 01-08-2017 End: 01-08-2017 Follow Up Appt 1 year Bart Marquez Start: 01-08-2017 End: 01-08-2017 PFM Bart Olivarez MD Start: 06-26-2016 End: 06-28-2016 *BMP Gonzalez A Bernard [employer] Start: 06-26-2016 End: 06-28-2016 *CBC with Differential Gonzalez A Bernard [employer]- C Start: 06-26-2016 End: 12-26-2016 Follow Up Appt Other Gonzalez A Bernard [employer] Start: 06-26-2016 End: 06-28-2016 Magnesium [Mass/volume] in Serum or Plasma Gonzalez A Bernard [employer] Start: 04-13-2016 End: 12-26-2016 *Hepatic Function Panel [...] Follow Up Appt 1 year Bart Marquez Anaerobic microbial culture Dr. Howard Zimmerman Work Phone: Fungus stain method Dr. Howard Zimmerman Work Phone: Influenza Types A,B Direct FA (ARIANNA) Dr. Howard Zimmerman Work Phone: Influenza Types A,B Direct FA (ARIANNA) Dr. Howard Zimmerman Work Phone: Investigation of tra nsfusion reaction Dr. Howard Zimmerman Work Phone: Microbial culture, routine D jer Zimmerman Work Phone: Mycology culture Dr. Howard barron Work Phone: Respiratory syncytia l virus antigen assay Dr. Howard Zimmerman Work Phone: Respiratory syncytia l virus antigen assay Dr. Howard Zimmerman Work Phone: Plan of Treatment Date Care Activity Detail Author Start: 01-15-2033 Urine microalbumin profile DTaP,Tdap,Td Vaccine (3 - Td or Tdap) [facility] Start: 08-15-2025 DIABETES SCREEN DIABETES SCREEN [facility] Start: 08-15-2025 Diabetes Screening Diabetes Screening [facility] Start: 05-04-2025 End: 05-04-2025 Patient encounter procedure 05/04/2025 11:00 AM EST Office Visit Neurology [address] [phone] Selvin Felder MD [address] [address] 6 month follow up Neurology Comment on above: 6 month follow up Start: 02-16-2025 Influenza vaccination Influenza Vaccine (Season Ended) [facility] Start: 02-14-2025 DIABETES SCREEN DIABETES SCREEN [facility] Start: 10-20-2024 End: 10-20-2024 Patient encounter procedure 10/20/2024 11:00 AM EDT Office Visit Neurology [address] [phone] Selvin Felder MD [address] [address] 6 month follow up Neurology Comment on above: 6 month follow up Start: 07-04-2024 End: 07-04-2024 Patient encounter procedure 07/04/2024 1:40 PM EST Office Visit [facility] [address] [facility] [place] [address] Irasema Armenta MD [address] [place] [address] annual OB/Gynecology Comment on above: annual Start: 06-18-2024 Advance Directive Discussion Advance Directive Discussion [facility] Start: 04-21-2024 End: 04-21-2024 Patient encounter procedure 04/21/2024 11:00 AM EST Office Visit Neurology [address] [phone] Selvin Felder MD [address] [address] 6 month follow up Neurology Comment on above: 6 month follow up Start: 02-22-2024 End: 02-22-2024 ambulatory [facility] Comment on above: CBC/LDH 6 MO OV/ LABS CBC/ L DH * Start: 02-17-2024 Covid-19 Vaccine ( season) Covid-19 Vaccine ( season) [facility] Start: 02-17-2024 Influenza vaccination Influenza Vaccine (#1) [facility] Start: 10-19-2023 Blood chemistry [facility] Start: 10-12-2023 Blood chemistry [facility] Start: 10-04-2023 Patient discharge [facility] Start: 10-03-2023 Development of care plan [facility] Start: 09-29-2023 [facility] Start: 09-27-2023 [facility] Start: 09-20-2023 Speech therapy management [facility] Start: 09-20-2023 Speech therapy assessment [facility] Start: 09-19-2023 [facility] Start: 09-15-2023 End: 09-15-2023 [facility] Start: 09-15-2023 Development of care plan [facility] Start: 09-15-2023 Developing a treatment plan [facility] Start: 09-14-2023 Admission procedure [facility] Start: 09-14-2023 Measuring intake and output [facility] Start: 09-14-2023 Patient referral to dietitian [facility] Start: 09-14-2023 Referral to occupational therapist [facility] Start: 09-14-2023 Referral to service [facility] Start: 09-14-2023 Vital signs measurements [facility] Start: 09-14-2023 [facility] Start: 09-14-2023 Patient discharge [facility] Start: 09-14-2023 [facility] Start: 09-11-2023 Care planning and problem solving actions [facility] Start: 09-11-2023 Telemedicine consultation with patient [facility] Start: 09-11-2023 [facility] Start: 09-08-2023 Following clinical pathway protocol [facility] Start: 09-08-2023 Assessment of risk of venous thromboembolism [facility] Start: 09-08-2023 Insertion of catheter into peripheral vein [facility] Start: 09-08-2023 Providing care according to standard [facility] Start: 09-08-2023 Provision of activity privileges [facility] Start: 09-08-2023 Referral to occupational therapist [facility] Start: 09-08-2023 Referral to service [facility] Start: 09-08-2023 [facility] Start: 09-08-2023 Urinalysis complete panel - Urine [facility] Start: 09-08-2023 Verification routine [facility] Start: 09-08-2023 Admission procedure [facility] Start: 09-08-2023 Hospital admission, emergency, from emergency room, medical nature [facility] Start: 09-08-2023 [facility] Start: 09-08-2023 Patient referral to dietitian [facility] Start: 08-17-2023 End: 11-16-2023 CBC W Auto Differential panel - Blood CBC + DIFF Lab STAT 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) Expected: 08/17/2023, Expires: 11/16/2023 [facility] Work Phone: Comment on above: Expected: 08/17/2023, Expires: 4 Start: 08-17-2023 End: 11-16-2023 Lactate dehydrogenase [Enzymatic activity/volume] in Serum or Plasma LD LACTATE DEHYDRO Lab Routine 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) Expected: 08/17/2023, Expires: 11/16/2023 [facility] Work Phone: Comment on above: Expected: 08/17/2023, Expires: Start: 07-28-2023 [facility] Start: 07-28-2023 Repair intermediate n/h/f/xtrnl gent 2.6-7.5 cm [facility] Start: 06-29-2023 Referral to service [facility] Start: 06-29-2023 Patient discharge [facility] Start: 06-28-2023 Following clinical pathway protocol [facility] Start: 06-28-2023 Aspiration precautions [facility] Start: 06-28-2023 Assessment of risk of venous thromboembolism [facility] Start: 06-28-2023 Cardiac monitoring [facility] Start: 06-28-2023 Catheterization of vein [facility] Start: 06-28-2023 Continuous pulse oximetry [facility] Start: 06-28-2023 Elevation of head of bed [facility] Start: 06-28-2023 Exercises [facility] Start: 06-28-2023 Fall prevention [facility] Start: 06-28-2023 Implementation of planned interventions [facility] Start: 06-28-2023 Inhalation therapy procedure [facility] Start: 06-28-2023 Insertion of catheter into peripheral vein [facility] Start: 06-28-2023 Introduction of urinary catheter [facility] Start: 06-28-2023 Measuring intake and output [facility] Start: 06-28-2023 Notification of physician [facility] Start: 06-28-2023 Oxygen therapy [facility] Start: 06-28-2023 Patient referral to dietitian [facility] Start: 06-28-2023 Providing care according to standard [facility] Start: 06-28-2023 Provision of activity privileges [facility] Start: 06-28-2023 Referral to occupational therapist [facility] Start: 06-28-2023 Referral to service [facility] Start: 06-28-2023 Speech therapy assessment [facility] Start: 06-28-2023 Telemedicine consultation with patient [facility] Start: 06-28-2023 Tobacco use cessation education [facility] Start: 06-28-2023 [facility] Start: 06-28-2023 Verification routine [facility] Start: 06-28-2023 Admission procedure [facility] Start: 06-28-2023 Hospital admission, emergency, from emergency room, medical nature [facility] Start: 06-28-2023 Oxygen therapy [facility] Start: 06-28-2023 [facility] Start: 06-18-2023 Advance Directive Discussion Advance Directive Discussion [facility] Start: 06-18-2023 Depression Assessment Depression Assessment [facility] Start: 05-08-2023 Procedure [facility] Start: 02-20-2023 COVID-19 VACCINE (6 - Moderna series) COVID-19 VACCINE (6 - Moderna series) [facility] Start: 02-16-2023 Covid-19 Vaccine ( season) Covid-19 Vaccine ( season) [facility] Start: 02-16-2023 Influenza vaccination [facility] Start: 01-16-2023 Patient discharge [facility] Start: 01-15-2023 Following clinical pathway protocol [facility] Start: 01-15-2023 Ambulation without limitation [facility] Start: 01-15-2023 Assessment of risk of venous thromboembolism [facility] Start: 01-15-2023 Catheterization of vein [facility] Start: 01-15-2023 Insertion of catheter into peripheral vein [facility] Start: 01-15-2023 Measuring intake and output [facility] Start: 01-15-2023 Providing care according to standard [facility] Start: 01-15-2023 Referral to occupational therapist [facility] Start: 01-15-2023 Referral to service [facility] Start: 01-15-2023 Speech therapy assessment [facility] Start: 01-15-2023 [facility] Start: 01-15-2023 Verification routine [facility] Start: 01-15-2023 Admission procedure [facility] Start: 01-15-2023 Patient referral to dietitian [facility] Start: 01-15-2023 [facility] Start: 11-29-2022 [facility] Start: 08-15-2022 End: 10-15-2022 CBC W Auto Differential panel - Blood CBC + DIFF Lab STAT 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) Expected: 08/15/2022, Expires: 10/15/2022 [facility] Work Phone: Comment on above: Expected: 08/15/2022, Expires: 3 Start: 08-15-2022 End: 10-15-2022 Comprehensive metabolic 2000 panel - Serum or Plasma COMP METABOLIC PANEL Lab STAT 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) Expected: 08/15/2022, Expires: 10/15/2022 [facility] Work Phone: Comment on above: Expected: 08/15/2022, Expires: 3 Start: 08-15-2022 End: 10-15-2022 Lactate dehydrogenase [Enzymatic activity/volume] in Serum or Plasma LD LACTATE DEHYDRO Lab Routine 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) Expected: 08/15/2022, Expires: 10/15/2022 [facility] Work Phone: Comment on above: Expected: 08/15/2022, Expires: 3 Start: 06-18-2022 ADVANCE DIRECTIVE DISCUSSION ADVANCE DIRECTIVE DISCUSSION [facility] Start: 06-18-2022 DEPRESSION ASSESSMENT DEPRESSION ASSESSMENT [facility] Start: 05-12-2022 Smpl repair scalp/neck/ax/genit/trun k 2.6-7.5cm RPR S/N/AX/GEN/TRNK2.6-7.5CM [facility] Start: 02-16-2022 Influenza vaccination INFLUENZA (#1) [facility] Start: 02-14-2022 End: 04-16-2022 CBC W Auto Differential panel - Blood CBC + DIFF Lab STAT 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) Expected: 02/14/2022, Expires: 04/16/2022 [facility] Work Phone: Comment on above: Expected: 02/14/2022, Expires: 2 Start: 02-14-2022 End: 04-16-2022 Comprehensive metabolic 2000 panel - Serum or Plasma COMP METABOLIC PANEL Lab Routine 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) Expected: 02/14/2022, Expires: 04/16/2022 [facility] Work Phone: Comment on above: Expected: 02/14/2022, Expires: 2 Start: 02-14-2022 End: 04-16-2022 Lactate dehydrogenase [Enzymatic activity/volume] in Serum or Plasma LD LACTATE DEHYDRO Lab Routine 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) Expected: 02/14/2022, Expires: 04/16/2022 [facility] Work Phone: Comment on above: Expected: 02/14/2022, Expires: 2 Start: 12-22-2021 [facility] Work Phone: Start: 11-09-2021 COVID-19 VACCINE (5 - Booster for Moderna series) COVID-19 VACCINE (5 - Booster for Moderna series) [facility] Start: 06-18-2021 ADVANCE DIRECTIVE DISCUSSION ADVANCE DIRECTIVE DISCUSSION [facility] Start: 06-18-2021 DEPRESSION ASSESSMENT DEPRESSION ASSESSMENT [facility] Start: 06-28-2019 DIABETES SCREEN DIABETES SCREEN [facility] Start: 06-05-2019 End: 06-05-2019 Office Visit 06/05/2019 Office Visit Orthopedic Surgery Brandon Faye MD [address] [facility] [address] [place], [place] [id number] [facility] [place] Start: 05-27-2019 Hospital Encounter 05/27/2019 Hospital Encounter General Surgery Brandon Faye MD [address] [facility] [address] [place], [place] [address] [facility] Start: 05-01-2019 Annual Wellness Visit (AWV) Annual Wellness Visit (AWV) [place], [place] Start: 02-16-2019 Influenza vaccination Flu vaccine (#1) [place] Start: 01-07-2018 End: 01-07-2018 Appointment [facility] Work Phone: Start: 05-07-2017 End: 05-07-2017 Appointment Appointment [facility] Work Phone: Start: 01-08-2017 End: 01-08-2017 *Hepatic Function Panel *Hepatic Function Panel [facility] Work Phone: Start: 01-08-2017 End: 01-08-2017 Follow Up Appt 1 year Follow Up Appt 1 year [facility] Work Phone: Start: 01-08-2017 End: 01-08-2017 Lipid panel [AGGREGATE] *Lipid Profile CC PCP [facility] Work Phone: Start: 01-08-2017 End: 01-08-2017 PFM PFM [facility] Work Phone: Start: 12-26-2016 End: 07-03-2016 *Hepatic Function Panel *Hepatic Function Panel [facility] Work Phone: Start: 12-26-2016 End: 07-03-2016 Lipid panel [AGGREGATE] *Lipid Profile CC PCP [facility] Work Phone: Start: 06-26-2016 End: 06-28-2016 *BMP *BMP [facility] Work Phone: Start: 06-26-2016 End: 06-28-2016 *CBC with Differential *CBC with Differential [facility] Work Phone: Start: 06-26-2016 End: 12-26-2016 Follow Up Appt Other Follow Up Appt Other [facility] Work Phone: Start: 06-26-2016 End: 06-28-2016 Magnesium *Magnesium [facility] Work Phone: Start: 04-13-2016 End: 12-26-2016 *Hepatic Function Panel *Hepatic Function Panel [facility] Work Phone: Start: 04-13-2016 End: 12-26-2016 Lipid panel [AGGREGATE] *Lipid Profile CC PCP [facility] Work Phone: Start: 01-03-2016 End: 01-03-2016 Echocardiography Echocardiogram (complete) [facility] Work Phone: Start: 01-03-2016 End: 01-03-2016 Follow Up Appt 6 months Follow Up Appt 6 months [facility] Work Phone: Start: 01-03-2016 End: 06-16-2016 Follow Up BP Check Follow Up BP Check [facility] Work Phone: Start: 01-03-2016 End: 10-13-2015 Lipid panel [AGGREGATE] *Lipid Profile CC PCP [facility] Work Phone: Start: 01-03-2016 End: 01-03-2016 MMM MMM [facility] Work Phone: Start: 06-28-2015 End: 07-05-2015 *Hepatic Function Panel *Hepatic Function Panel [facility] Work Phone: Start: 06-28-2015 End: 07-05-2015 Lipid panel [AGGREGATE] *Lipid Profile CC PCP [facility] Work Phone: Start: 06-25-2015 End: 06-25-2015 Follow Up Appt 6 months Follow Up Appt 6 months [facility] Work Phone: Start: 06-25-2015 End: 06-25-2015 PFM PFM [facility] Work Phone: Start: 04-07-2015 End: 04-09-2015 *Hepatic Function Panel *Hepatic Function Panel [facility] Work Phone: Start: 04-07-2015 End: 04-09-2015 Lipid panel [AGGREGATE] *Lipid Profile CC PCP [facility] Work Phone: Start: 11-23-2014 End: 11-23-2014 24 hour holter monitor 24 hour holter monitor [facility] Work Phone: Start: 11-23-2014 End: 11-23-2014 Ecg routine ecg w/least 12 lds w/i&r EKG (In office) [facility] Work Phone: Start: 11-23-2014 End: 11-23-2014 Follow Up Appt 6 months Follow Up Appt 6 months [facility] Work Phone: Start: 11-23-2014 End: 11-23-2014 MMM MMM [facility] Work Phone: Start: 10-06-2014 End: 10-06-2014 *Hepatic Function Panel *Hepatic Function Panel [facility] Work Phone: Start: 10-06-2014 End: 10-06-2014 Lipid panel [AGGREGATE] *Lipid Profile CC PCP [facility] Work Phone: Start: 05-26-2014 End: 05-26-2014 Follow Up Appt Other Follow Up Appt Other [facility] Work Phone: Start: 05-26-2014 End: 05-26-2014 PFM PFM [facility] Work Phone: Start: 01-16-2014 End: 04-07-2014 *Hepatic Function Panel *Hepatic Function Panel [facility] Work Phone: Start: 01-16-2014 End: 04-07-2014 Lipid panel [AGGREGATE] *Lipid Profile CC PCP [facility] Work Phone: Start: 11-24-2013 End: 11-24-2013 Ecg routine ecg w/least 12 lds w/i&r EKG (In office) [facility] Work Phone: Start: 11-24-2013 End: 11-24-2013 Follow Up Appt 6 months Follow Up Appt 6 months [facility] Work Phone: Start: 11-24-2013 End: 11-24-2013 MMM MMM [facility] Work Phone: Start: 09-16-2013 End: 10-20-2013 *Hepatic Function Panel *Hepatic Function Panel [facility] Work Phone: Start: 09-16-2013 End: 10-20-2013 Lipid panel [AGGREGATE] *Lipid Profile CC PCP [facility] Work Phone: Start: 05-01-2013 End: 05-22-2013 Ecg routine ecg w/least 12 lds w/i&r EKG (In office) [facility] Work Phone: Start: 04-08-2013 End: 04-08-2013 24 hour holter monitor 24 hour holter monitor [facility] Work Phone: Start: 04-08-2013 End: 04-08-2013 Ecg routine ecg w/least 12 lds w/i&r EKG (In office) [facility] Work Phone: Start: 04-08-2013 End: 04-08-2013 Follow Up Appt 6 months Follow Up Appt 6 months [facility] Work Phone: Start: 04-08-2013 End: 04-08-2013 Follow Up Appt Other Follow Up Appt Other [facility] Work Phone: Start: 04-08-2013 End: 04-08-2013 PFM PFM [facility] Work Phone: Start: 11-16-2012 End: 12-02-2012 *Hepatic Function Panel *Hepatic Function Panel [facility] Work Phone: Start: 11-16-2012 End: 12-02-2012 Lipid panel [AGGREGATE] *Lipid Profile [facility] Work Phone: Start: 10-11-2012 End: 10-11-2012 Follow Up Appt 6 months Follow Up Appt 6 months [facility] Work Phone: Start: 10-11-2012 End: 10-11-2012 Follow Up Appt Other Follow Up Appt Other [facility] Work Phone: Start: 10-11-2012 End: 10-11-2012 MMM MMM [facility] Work Phone: Start: 05-18-2012 End: 05-24-2012 *Hepatic Function Panel *Hepatic Function Panel [facility] Work Phone: Start: 05-18-2012 End: 05-24-2012 Lipid panel [AGGREGATE] *Lipid Profile [facility] Work Phone: Start: 12-07-2011 End: 12-19-2011 *Hepatic Function Panel *Hepatic Function Panel [facility] Work Phone: Start: 12-05-2011 End: 12-19-2011 Lipid panel [AGGREGATE] *Lipid Profile [facility] Work Phone: Start: 11-09-2011 End: 11-09-2011 Follow Up Appt 1 year Follow Up Appt 1 year [facility] Work Phone: Start: 09-28-2011 MENINGOCOCCAL CONJUGATE (1 - Risk start 2-23 months series) MENINGOCOCCAL CONJUGATE (1 - Risk start 2-23 months series) [facility] Start: 09-28-2011 Meningococcal Conjugate Vaccine (1 - Risk start 2-23 months series) Meningococcal Conjugate Vaccine (1 - Risk start 2-23 months series) [facility] Start: 2001 DEXA (modify frequency per FRAX score) DEXA (modify frequency per FRAX score) [place], [place] Start: 1986 Shingles Vaccine (1 of 2) Shingles Vaccine (1 of 2) [place] Start: 1955 Urine microalbumin profile DTAP,TDAP,TD (1 - Tdap) [facility] Start: 1954 Anxiety Screening Anxiety Screening [facility] Start: 1954 Depression Screening Depression Screening [facility] Start: 1947 DTaP/Tdap/Td vaccine (1 - Tdap) DTaP/Tdap/Td vaccine (1 - Tdap) [place], [place] Start: 1946 Meningococcal B Vaccine (1 of 5 - Increased Risk) Meningococcal B Vaccine (1 of 5 - Increased Risk) [facility] Start: 1946 Meningococcal B Vaccine: Consider Based On Risk (1 of 4 - Increased Risk) Meningococcal B Vaccine: Consider Based On Risk (1 of 4 - Increased Risk) [facility] Start: 1946 MENINGOCOCCAL B: Consider based on risk (1 of 4 - Increased Risk Bexsero 2-dose series) MENINGOCOCCAL B: Consider based on risk (1 of 4 - Increased Risk Bexsero 2-dose series) [facility] Start: 1946 MENINGOCOCCAL B: Consider based on risk (1 of 4 - Increased Risk) MENINGOCOCCAL B: Consider based on risk (1 of 4 - Increased Risk) [facility] Bilirubin measuremen t, urine [facility] Work Phone: End: 05-27-2019 Blood glucose - POCT Blood glucose - POCT Point of Care Testing STAT One Time for 1 Occurrences starting 05/27/2019 until 05/27/2019 [facility] Work Phone: Comment on above: One Time for 1 Occurrences starting 05/18 until 05/27/2019 Cardiac event recording [facility] End: 03-16-2023 Ct abdomen & pelvis w/o contrast material CT ABD/PEL WO IVCON Radiology Routine 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 1 Occurrences starting 02/14/2022 until 03/16/2023 [facility] Work Phone: Comment on above: 1 Occurrences starting 02/14/2022 until 03/16/2023 Hemoglobin [Presence ] in Urine [facility] Work Phone: Incentive spirometry Incentive s pirometry Respiratory Care Routine Q1H PRN until discontinued starting 05/27/2019 [employer] Work Phone: Comment on above: Q1H PRN until discontinued starting 05/18 Initiate Oxygen Ther apy Protocol Initiate Oxygen Therapy Protocol Respiratory Care Routine Daily until discontinued starting 05/27/2019 [employer] Work Phone: Comment on above: Daily until discontinued starting 2018 End: 05-04-2023 GLEN SCREENING GLEN SCREENING Radiology Routine Encounter for screening mammogram for malignant neoplasm of breast 1 Occurrences starting 04/04/2022 until 05/04/2023 [facility] Work Phone: Comment on above: 1 Occurrences starting 04/04/2022 until 05/04/2023 Measurement of keton es in urine using dipstick [facility] Work Phone: Microscopic urinalysis [facility] Work Phone: Patient Education [facility] [employer] Work Phone: Patient referral [facility] Work Phone: pH of Urine [facility] Work Phone: Phase I & II - meter ed glucose Phase I & II - metered glucose Point of Care Testing Routine As Needed until discontinued starting 05/27/2019 [facility] Work Phone: Comment on above: As Needed until discontinued starting Procedure [facility] Work Phone: PT PLAN OF CARE CERTIFICATION PT PLAN OF CARE CERTIFICATION Procedures Routine Parkinson's disease (HCC) Abnormality of gait Ordered: 07/18/2022 [facility] Work Phone: Comment on above: Ordered: 07/18/2022 End: 05-27-2019 Pulse Oximetry Spot Check Pulse Oximetry Spot Check Respiratory Care Routine One Time for 1 Occurrences starting 05/27/2019 until 05/27/2019 [facility] Work Phone: Comment on above: One Time for 1 Occurrences starting 05/18 until 05/27/2019 Specific gravity of Urine [facility] Work Phone: Urinalysis, blood, qualitative [facility] Work Phone: Urine dipstick for glucose [facility] Work Phone: Urine dipstick for leukocyte esterase [facility] Work Phone: Urine dipstick for nitrite [facility] Work Phone: Urine dipstick for protein [facility] Work Phone: Urine examination [facility] Work Phone: Urine microscopy: epithelial cells [facility] Work Phone: Urine Microscopy: wh ite cells [facility] Work Phone: Urobilinogen [Presen ce] in Urine [facility] Work Phone: [facility] Immunizations Immunization Date Immunization Notes Care Provider Fa cili 11-14-2023 Covid (Spikevax) Dr. Howard barron MD Work Phone: [facility] 02-22-2023 influenza (aIIV4) vaccine, age 65+ yr, quadrivalent, PF (FLUAD QUAD) Selvin Felder MD Work Phone: [facility] Work Phone: 02-22-2023 influenza, injectabl e, quadrivalent, preservative free Dr. Howard Zimmerman Work Phone: [facility] 02-22-2023 respiratory syncytia l virus (RSV) vaccine, adjuvanted (AREXVY) Selvin Felder MD Work Phone: [facility] Work Phone: 02-22-2023 influenza virus vacc ine, unspecified formulation Selvin Felder MD Work Phone: [facility] 01-15-2023 tetanus toxoid, redu carlton diphtheria toxoid, and acellular pertussis vaccine, adsorbed Dr. Howard Zimmerman Work Phone: [facility] 10-20-2022 Covid Moderna Bivale nt Booster Dr. Howard Zimmerman MD Work Phone: [facility] 05-12-2022 tetanus toxoid, redu carlton diphtheria toxoid, and acellular pertussis vaccine, adsorbed Dr. Howard Zimmerman Work Phone: [facility] 09-14-2021 Covid (Moderna) Dr. Howard Zimmerman MD Work Phone: [facility] 04-06-2021 COVID-19 vaccine, fu ll dose (MODERNA) Sridevi Solo MD Work Phone: [facility] Work Phone: 02-03-2021 influenza, injectabl e, quadrivalent, contains preservative Sridevi Solo MD Work Phone: [facility] Work Phone: 02-03-2021 influenza, injectabl e, quadrivalent, preservative free Dr. Howard Zimmerman MD Work Phone: [facility] 08-13-2020 COVID-19 vaccine, fu ll dose (MODERNA) Sridevi Solo MD Work Phone: [facility] Work Phone: 07-16-2020 COVID-19 vaccine, fu ll dose (MODERNA) Sridevi Solo MD Work Phone: [facility] Work Phone: 02-10-2020 influenza, injectabl e, quadrivalent, contains preservative Sridevi Solo MD Work Phone: [facility] Work Phone: 02-10-2020 influenza, injectabl e, quadrivalent, preservative free Dr. Howard Zimmerman MD Work Phone: [facility] 08-06-2019 zoster vaccine recombinant Sridevi Solo MD Work Phone: [facility] Work Phone: 04-08-2019 zoster vaccine recombinant Sridevi Solo MD Work Phone: [facility] Work Phone: 02-20-2019 pneumococcal conjuga te vaccine, 13 valent Sridevi oSlo MD Work Phone: [facility] Work Phone: 02-20-2019 Seasonal trivalent influenza vaccine, adjuvanted, preservative free Selvin Felder MD Work Phone: [facility] Work Phone: 03-21-2018 influenza, high dose seasonal, preservative-free Selvin Felder MD Work Phone: [facility] Work Phone: 03-05-2013 influenza, injectabl e, quadrivalent, preservative free Dr. Howard Zimmerman MD Work Phone: [facility] 03-05-2013 influenza, seasonal, injectable Selvin Felder MD Work Phone: [facility] Work Phone: 04-05-2012 influenza virus vacc ine, whole virus Selvin Felder MD Work Phone: [facility] Work Phone: 04-05-2012 influenza, injectabl e, quadrivalent, preservative free Dr. Howard Zimmerman MD Work Phone: [facility] 03-18-2012 influenza virus vacc ine, unspecified formulation Sridevi Solo MD Work Phone: [facility] 08-16-2011 haemophilus influenz ae type b vaccine, HbOC conjugate Sridevi Solo MD Work Phone: [facility] Work Phone: 08-03-2011 Meningococcal, MCV4, unspecified conjugate formulation(groups A, C, Y and W-135) Sridevi Solo MD Work Phone: [facility] Work Phone: 08-03-2011 pneumococcal polysaccharide vaccine, 23 valent Sridevi Solo MD Work Phone: [facility] Work Phone: 04-11-2010 pneumococcal polysaccharide vaccine, 23 valent Bart Brooks DO Work Phone: [facility] Work Phone: 03-25-2010 influenza virus vacc ine, whole virus Selvin Felder MD Work Phone: [facility] Work Phone: 03-25-2010 influenza, injectabl e, quadrivalent, preservative free Dr. Howard Zimmerman MD Work Phone: [facility] 06-02-2009 novel influenza-H1N1 -09, preservative-free, injectable Sridevi Solo MD Work Phone: [facility] Work Phone: 04-16-2007 influenza virus vacc ine, whole virus Selvin Felder MD Work Phone: [facility] Work Phone: 04-16-2007 influenza, injectabl e, quadrivalent, preservative free Dr. Howard Zimmerman MD Work Phone: [facility] Payers Date Payer Category Payer Self-pay [id number] 2021 Medicare AETNA MEDICARE A ETNA MEDICARE PPO [id number] 2021-Present [phone] [address] [place] [address] [facility] [id number] 2021 Medicare (Managed Care[facility] [id number] 2019 Medicare AETNA MEDICARE A ETNA MEDICARE-ADVANTAGE PPO [id number] 2019-Present [address] [place] [address] Medicare [id number] 2009 Medicare [id number] 2009 [facility] Health Insurance [facility] [id number] Unknown [id number] 2.16.840.1.076799.3.579.2. 462 Unknown [id number] 2.16.840.1.435965.3.579.2. 462 Unknown [id number] 2.16.840.1.922928.3.579.2. 462 Unknown [id number] 2.16.840.1.717602.3.579.2. 462 Unknown [id number] 2.16.840.1.163731.3.579.2. 462 Unknown [id number] 2.16.840.1.341855.3.579.2. 462 Unknown [id number] 2.16.840.1.686458.3.579.2. 462 Unknown [id number] 2.16.840.1.918122.3.579.2. 462 Unknown [id number] 2.16.840.1.237215.3.579.2. 462 Unknown [id number] 2.16.840.1.236384.3.579.2. 462 Unknown [id number] 2.16.840.1.562665.3.579.2. 462 Unknown [id number] 2.16.840.1.573809.3.579.2. 462 Unknown [id number] 2.16.840.1.604356.3.579.2. 462 Unknown [id number] 2.16.840.1.825585.3.579.2. 462 Unknown [id number] 2.16.840.1.772060.3.579.2. 462 Unknown [id number] 2.16840.1.915727.3.579.2. 462 Unknown [id number] 2.16840.1.816705.3.579.2. 462 Unknown [id number] 2.16.840.1.938600.3.579.2. 462 Unknown [id number] 2.16840.1.712512.3.579.2. 462 Unknown [id number] 2.16840.1.497719.3.579.2. 462 Unknown [id number] 2.840.1.277075.3.579.2. 462 Unknown [id number] 2.840.1.505749.3.579.2. 462 Unknown [id number] 2.840.1.859344.3.579.2. 462 Unknown [id number] 2.840.1.047671.3.579.2. 462 Unknown [id number] 2.840.1.389850.3.579.2. 462 Unknown [id number] 2.840.1.491060.3.579.2. 462 Unknown [id number] 2.840.1.582909.3.579.2. 462 Unknown [id number] 2.840.1.429946.3.579.2. 462 Unknown [id number] 2.840.1.188636.3.579.2. 462 Unknown [id number] 2.840.1.621791.3.579.2. 462 Unknown [id number] 2.840.1.219125.3.579.2. 462 Unknown [id number] 2.840.1.095297.3.579.2. 462 Unknown [id number] 2.16840.1.975881.3.579.2. 462 Unknown [id number] 2.840.1.576519.3.579.2. 462 Unknown [id number] 2.16.840.1.659473.3.579.2. 462 Unknown [id number] 2.16.840.1.732505.3.579.2. 462 Unknown [id number] 2.16.840.1.386274.3.579.2. 462 Unknown [id number] 2.16.840.1.311230.3.579.2. 462 Unknown [id number] 2.16.840.1.369123.3.579.2. 462 Unknown [id number] 2.16.840.1.299118.3.579.2. 462 Unknown [id number] 2.16.840.1.536849.3.579.2. 462 Unknown [id number] 2.16.840.1.721381.3.579.2. 462 Social History Date Type Detail Facility Start: 2019 End: 05-14-2024 Tobacco smoking status NHIS Never smoker [facility] Start: 2019 End: 05-27-2019 [facility] Start: 2019 History SDOH Alcohol Frequency 1 [place], [place] Start: 1935 Sex Assigned At Not on file M [place], [place] Start: 09-19-2021 End: 10-20-2024 Alcohol intake Current non-drinker of alcohol (finding) [facility] Start: 09-09-2021 End: 02-14-2022 Exposure to SARS-CoV-2 (event) Not sure [facility] Start: 11-23-2021 End: 01-15-2023 Tobacco smoking status TXIS Unknown if ever smoked [facility] Start: 11-08-2020 Homeless [facility] Start: 11-08-2020 Non-smoker [facility] Start: 1935 Sex Assigned At Female [facility] Start: 07-05-2022 Tobacco use and exposure Smokeless tobacco non-user [facility] Start: 02-13-2023 End: 10-20-2024 History of Social function [facility] Start: 02-13-2023 End: 10-20-2024 Tobacco use panel [facility] Adult Depression Screening Assessment 0 [facility] Start: 09-18-2024 End: 10-03-2024 Sex Female (finding) [facility] Medical Equipment Procedure Code Equipment Code Equipment Origin al Text Equipment Identifier Dates Primary uncemented hemiarthroplasty of hip Orthopaedic cement, non-antimicrobial ()[id number] FDA Start: 12-23-2023 Primary uncemented hemiarthroplasty of hip ([id number]) Metallic femoral head prosthesis ()[id number] FDA Start: 12-23-2023 Primary uncemented hemiarthroplasty of hip ([id number]) Orthopaedic cement spacer ()[id number]) [id number] FDA Start: 12-23-2023 Primary uncemented hemiarthroplasty of hip (234298512) Bipolar femoral head outer component, hemiarthroplasty ()[id number]) [id number] FDA Start: 12-23-2023 Primary uncemented hemiarthroplasty of hip ([id number]) Coated hip femur prosthesis, modular ()[id number]) [id number] FDA Start: 12-23-2023 Primary uncemented hemiarthroplasty of hip Orthopaedic cement, antimicrobial ()[id number] FDA Start: 12-23-2023 Goals Date Patient Goal Desired Activity /State Functional Status Date Assessment Result Facility 10-04-2023 Functional status Ambulates [facility] Work Phone: 09-14-2023 Functional status Ambulates [facility] Work Phone: 06-29-2023 Functional status Ambulates [facility] Work Phone: 01-16-2023 Functional status Ambulates [facility] Work Phone: 10-07-2021 Functional Status OBJECTIVE Posture: WNL Gait: amb with large step length and arm swing, no AD Transfers: able to perform sit to stand with no UE support Coordination: hand gestures, toe tapping, arm rolls - symmetyrical, no abnormalties AROM: WNL PROM: WNL MMT: grossly 4+/5 except hip adductors 4/5 and bilat hamstrings 4/5 Unit Receptionist strength L: 45 lbs - pt is left hand dominant Unit Receptionist strength R: 30 lb TUG- 8 seconds Gan out of 56 Activity-Specific Balance Confidence Scale (ABC): 87% [facility] 11-23-2014 Are you deaf, or do you have serious difficulty hearing Yes 11/23/2014 8:52 AM JANET Magaly Dodson Ma, [place] Yes [facility] 11-23-2014 Are you blind, or do you have serious difficulty seeing, even when wearing glasses No 11/23/2014 8:52 AM Magaly Kim Ma, MA No [facility] 11-23-2014 Do you have serious difficulty walking or climbing stairs No 11/23/2014 8:52 AM JANET Magaly Dodson Ma, [place] No [facility] 11-23-2014 Do you have difficul ty dressing or bathing No 11/23/2014 8:52 AM JANET Magaly Dodson Ma, [place] No [facility] 11-23-2014 Because of a physica l, mental, or emotional condition, do you have difficulty doing errands alone such as visiting a physician's office or shopping No 11/23/2014 8:52 AM JANET Magaly Dodson Ma, MA No [facility] Mental Status Date Assessment Result Facility 10-04-2023 Cognitive function Voice/Name [facility] Work Phone: 09-26-2023 Cognitive function Appropriate;Cooperativ e [facility] Work Phone: 09-14-2023 Cognitive function Voice/Name [facility] Work Phone: 09-08-2023 Cognitive function Level Of Cons ciousness Drowsy [facility] Work Phone: 06-29-2023 Cognitive function Voice/Name [facility] Work Phone: 06-28-2023 Cognitive function Voice/Name [facility] Work Phone: 01-16-2023 Cognitive function Voice/Name [facility] Work Phone: 11-23-2014 Because of a physica l, mental, or emotional condition, do you have serious difficulty concentrating, remembering, or making decisions No 11/23/2014 8:52 AM EDT Magaly Dodson Ma, MA No [facility] Clinical Notes 05-27-2019 to 10-20-2024 Selvin Felder MD - 10/20/2024 11:36 AM EDTPatient InstructionsPatient InstructionsAppSelvin soares MD - 04/21/2024 11:22 AM ESTTelephone Encounter - Maria Eugenia Virgen MA - 04/21/2024 11:02 AM EST Note Date & Type Note Facility 10-20-2024 Note HNO ID: [id number] Author: SELVIN FELDER MD Service: ? Author Type: Physician Type: Progress Notes Filed: 10/20/2024 11:40 Note Text: [facility] - FOLLOW UP EVALUATION Primary Movement Disorders Neurologist: Selvin Felder MD Primary Movement Disorders TONE: Not yet assigned Recording using ambient [employer] software for draft documentation of the visit was discussed with the patient/authorized sales representative supervisor; all questions welcomed and answered. Patient/authorized sales representative supervisor agreed to proceed Howard Zimmerman MD [address] [address] Dear Howard Zimmerman MD: I had the pleasure of [...] exercise and therapy - exercise Interval History: Kaylene is an 89-year-old female with a history of Parkinson's disease presenting with fatigue, lightheadedness, and hand contractures. Kaylene reports feeling lightheaded upon waking in the [...] endorse any fluid restrictions advised by a warehouse engineer. She reports persistent fatigue, stating, I just [...] patient's overall global physical and mental health (more content not included)... [facility] 10-20-2024 History of Presen t illness Narrative [facility] - FOLLOW UP EVALUATION Primary Movement Disorders Neurologist: Selvin Felder MD Primary Movement Disorders TONE: Not yet assigned Recording using [employer] software for draft documentation of the visit was discussed with the patient/authorized sales representative supervisor; all questions welcomed and answered. Patient/authorized sales representative supervisor agreed to proceed Howard Zimmerman MD [address] [address] Dear Howard Zimmerman MD: I had the pleasure of [...] exercise and therapy - exercise Interval History: Kaylene is an 89-year-old female with a history of Parkinson's disease presenting with fatigue, lightheadedness, and hand contractures. Kaylene reports feeling lightheaded upon waking in the [...] endorse any fluid restrictions advised by a warehouse engineer. She reports persistent fatigue, stating, I just [...] lb 10.9 oz) SpO2 96% BMI 18.08 kg/m Orthostatic Vitals: Sitting: BP 131/73 Pulse 82 Standing: BP 87/60 Pulse 98 Weight: 43.4 kg (95 lb 10.9 oz) No LMP recorded. Patient is postmenopausal. Body mass index is 18.08 kg/m . Neurological Exam Mental Status Awake and alert. [...] or around: 04/22/25 Level of service : 83711 ( 30-39 min). Time spent 34 min on the day of service, which included preparing to see the patient, [id number] patient care, completing clinical documentation, performing a medically appropriate examination, and counseling and educating the patient/family/caregiver. Thank you for allowing me to be part of the clinical care of this patient! I look forward to continued participation in the patient s care with you. Please do not hesitate to call with any questions. Sincerely, Selvin Felder MD documented in this encounter [facility] 10-20-2024 Instructions Selvin Felder MD - 10/20/2024 11:31 AM EDT It was a pleasure to see you [...] by your therapy team. Keep taking your Parkinson s medications on the usual schedule. Movement Disorders Medication Schedule: Medications 9 1p 6p Sinemet 25/100 2 2 2 midodrine 5 mg 3 3 1 No follow-ups on file. If there are any concerns before your next visit, please call or you can send a message through [employer]. You can also now schedule and select appointments through [employer]. Selvin Felder MD documented in this encounter [facility] 04-21-2024 Instructions Selvin Felder MD - 04/21/2024 11:36 AM EST It was a pleasure to see you [...] or you can send a message through [employer]. You can also now schedule and select appointments through [employer]. Selvin Felder MD documented in this encounter [facility] 04-21-2024 Note HNO ID: [id number] Author: SELVIN FELDER MD Service: ? Author Type: Physician Type: Progress Notes Filed: 04/21/2024 19:56 Note Text: [facility] - FOLLOW UP EVALUATION Howard Zimmerman MD [address] [address] I had the pleasure of seeing Ms. 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 [facility] 04-21-2024 History of Presen t illness Narrative [facility] - FOLLOW UP EVALUATION Howard Zimmerman MD [address] [facility] [address] [facility] [address] I had the pleasure of seeing Ms. 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 Patient is postmenopausal. Body mass index is 18.41 kg/m . General Physical Examination: General: Awake, [...] or around: 10/19/24 Level of service : 75762 ( 30-39 min). Time spent 34 min on the day of service, which included preparing to see the patient, [id number] patient care, completing clinical documentation, performing a medically appropriate examination, counseling and educating the patient/family/caregiver, and ordering medications, tests, or procedures. Thank you for allowing me to be part of the clinical care of this patient! I look forward to continued participation in the patient s care with you. Please do not hesitate to call with any questions. Sincerely, Selvin Felder MD documented in this encounter [facility] 04-21-2024 Telephone encounter Note Checked james patient not present at time of visit [facility] 04-21-2024 Miscellaneous Notes Checked james patient not present at time of visit documented in this encounter [facility] 12-25-2023 Note [facility] Medical Records Department [address] [place] [address] Discharge Summary 12/25/23 1510 MR#: [id number] Acct: [id number] Name: KAYLENE HAYNES Rep #: [id number] : [id number] 88 From: Naresh Blanchard DO PCP: Dr. Odalis Saravia MD Status:ADM IN Location: [facility] HD272-4 Providers Date of Admission: 12/22/23 Date of Discharge: 12/25/23 Primary Care Physician: Dr. Odalis Saravia MD Consultations 12/22/23 20:42 Consult: Orthopedics Routine Consulting Provider: Adrien Baez Reason for Consult: Right Hip Fracture with need for ORIF. EMERGENT Consult: No MD Notified: Yes Date Notified: 12/22/23 Time Notified: 19:49 Method of Notification: ED Physician Initiated Reason For Visit: RIGHT HIP FRACTURE AFTER FALL IN THE SETTING OF Diagnosis Discharge Diagnosis (1) Displaced fracture of right femoral neck: Status: Acute Code(s): S72.001A - Fracture of unspecified part of neck of right femur, initial encounter for closed fracture (2) Generalized weakness: Status: Acute Code(s): R53.1 - Weakness (3) Anemia: Status: Acute Code(s): D64.9 - Anemia, unspecified Medications at Discharge Home Medications multivitamin 1 tab PO DAILY SUPPLEMENT 11/20/18 carbidopa 25 mg-levodopa 100 mg tablet 2 tab PO TID PARKINSONS 01/05/23 aspirin 81 mg chewable tablet 81 mg PO [facility] 1 month #30 tabs 06/29/23 VITAL TEARS 1 drp ophthalmic (eye) TID DRY EYES 09/08/23 midodrine 5 mg tablet 10 mg (2 x 5 mg) PO TIDCM BLOOD PRESSURE #0 tabs 09/14/23 acetaminophen 500 mg tablet 1,000 mg (2 x 500 mg) PO Q8 14 days #0 tabs 12/25/23 aspirin 81 mg chewable tablet 81 mg PO BID 30 days #0 tabs 12/25/23 food supplemt, lactose-reduced 0.08 gram-1.5 kcal/mL oral liquid (Ensure Plus High Protein) 120 ml PO BID #0 mL 12/25/23 Hospital Course Operations total hip replacement Procedures EKG and - (Chest x-ray, hip x-ray x 2) Summary of Care Provided Minutes Spent on Discharge: 35 Hospital Course: Patient is an 88-year-old female who presented [facility] ED on 12/22/2023 with right hip pain after a fall at her assisted living facility. Hospital course as noted below. Patient discharged to SNF in stable condition on 12/24. 1. Right femoral neck fracture with acute on chronic debility ??? Orthopedics followed. PT/OT/case management followed. Lives at [facility] in assisted living, had ground-level fall resulting in right hip fracture. S/p right hip hemiarthroplasty done on 12/22. Patient tolerated procedure well, no intraoperative complications. Continue pain control with scheduled Tylenol and oxycodone as needed. Aspirin 81 mg twice daily for DVT prophylaxis. Stable for discharge to [facility] side of [place] on 12/24. 2. History of Parkinson's disease with chronic disequilibrium and orthostasis; history of dementia ??? Stable. Continue home carbidopa-levodopa and midodrine. PT/OT followed as above. 3. Postprocedural acute blood loss anemia in setting of chronic mild anemia ??? Baseline hemoglobin around 11, at baseline on admit. Hemoglobin dropped to 9.8 on postop day 1, consistent with blood loss from procedure. Hemoglobin again dropped to 8.6 on postop day 2; repeat hemoglobin checked and was 9.1. Right hip appeared stable from previous days, so I have low concern for active slow bleed into the hip. No other sources of bleeding noted. Patient stable for discharge but recommend repeat CBC in 5 days to ensure continued stability of hemoglobin. 4. CKD stage III-IV ??? Creatinine 1.09 on admit, baseline 1.0-1.3. Remained at baseline during hospitalization. Stable. 5. History of TIA ??? Stable. On baby aspirin daily at home. Continue twice daily baby aspirin as noted above. Total clinical time spent by myself addressing the patient's medical issues, reviewing all the data, and collaborating with patient's care team: 35 minutes. Physical Exam Const alert and no apparent distress Constitutional Narrative: Pleasant elderly female, history of dementia but alert and answering questions appropriately, sitting up comfortably in bedside chair, in no acute distress. General Appearance: cooperative and comfortable HEENT normocephalic, head/scalp atraumatic, hearing grossly normal bilaterally, nasal mucous membranes and turbinates normal and moist oral mucous membranes Eyes PERRL, EOMs intact bilaterally and conjunctivae normal Neck full ROM Chest inspection of chest normal Resp normal respiratory effort, normal air movement, no use of accessory muscles and clear to auscultation bilaterally Cardio regular rate, regular rhythm, no murmurs and peripheral pulses 2+ throughout GI normal to inspection, nondistended, normoactive bowel sounds, soft to palpation, non-tender and non- distended Back/Spine normal ROM Extremity Extremity Narrative: R (more content not included)... [facility] 12-23-2023 Note [facility] Medical Records Department [address] [place] [address] Consultation 12/23/23 0752 MR#: [id number] Acct: [id number] Name: KAYLENE HAYNES LY Rep #: [id number] : 1935 88 From: Lyudmila BRUNSON PCP: Dr. Odalis Saravia MD Status:ADM IN Location: [facility] [address] Assessment Plan Assessment/Plan (1) Displaced fracture of right femoral neck: PLAN: Dr. Adrien Baez did discuss and review all treatment options at length with the patient her son and [id number] including surgical and nonsurgical treatment options. At this time they do wish to proceed with cemented right hip hemiarthroplasty. Potential risk benefits and complications of this procedure were reviewed in detail including but not limited to infection or blood vessel damage persistent pain numbness tingling paresthesias blood clot pulmonary embolism and the requirement for possible further surgery they expressed full understanding have no further questions for the doctor do agree to proceed with the above-stated procedure and have signed the appropriate surgery consent form Will likely plan for aspirin 81 mg twice daily x 1 month for DVT prophylaxis in the postoperative period x 1 month. Also discussed and reviewed hip dislocation precautions. All questions answered. HPI Consult Data Date of Consult: 12/23/23 HPI Narrative Reason for Consultation: Right hip fracture resulting from fall HPI Narrative: KAYLENE HAYNES, is a 88 F who presented to [facility] emergency department yesterday by gallo. She is a resident of [facility]. She ambulates with a walker primarily as a result of Parkinson's disease. She had some change fall out of her pocket she bent over to pick it up she had increased pain and fell to the ground she was unable to stand. No head injury no loss of consciousness. Hip was normal and pain-free prior to the injury. Upon arrival to [facility] emergency department x-rays revealed a femoral neck fracture orthopedics was consulted. Patient denies a history of DVT or pulmonary embolism. Denies prescription anticoagulant use. She does take baby aspirin daily. She does have a history of TIA and early onset dementia. She was recently under the care for nonsurgical management of a humeral neck fracture on the right shoulder by Dr. Osiel Chi that healed uneventfully without complication. Patient currently complains of right hip pain no knee ankle or foot pain. No numbness or tingling into the feet no fevers chills or other signs of infection. Patient does report history of penicillin allergy resulting in rash. 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 CKD (chronic kidney disease), stage III Anemia Falls Brain TIA Parkinson's disease Parotid tumor Lymphoma Parkinsons disease Premature ventricular contraction Hypertension Premature atrial contractions Hyperlipidemia History of atrial myxoma Nonrheumatic tricuspid valve regurgitation Nonrheumatic mitral valve regurgitation Nonrheumatic mitral (valve) prolapse Home Medications ???Medication ???Instructions ???Recorded ???Last Taken ???Type multivitamin 1 tab PO DAILY SUPPLEMENT 11/20/18 11/07/23 08:00 History carbidopa 25 mg-levodopa 100 mg 2 tab PO TID PARKINSONS 01/05/23 11/08/23 05:40 History tablet aspirin 81 mg chewable tablet 81 mg PO BREAKFAST HEART HEALTH 1 06/29/23 11/07/23 08:00 Rx month #30 tabs VITAL TEARS 1 drp ophthalmic (eye) TID DRY EYES 09/08/23 11/08/23 05:40 History midodrine 5 mg tablet 10 mg (2 x 5 mg) PO TIDCM BLOOD 09/14/23 11/07/23 07:45 Rx PRESSURE #0 tabs acetaminophen 325 mg tablet 650 mg PO Q8 PRN fever or pain 12/22/23 Unknown History Allergy/AdvReac Type Severity Reaction Status Date / Time Penicillins Allergy Rash Verified 12/22/23 17:58 risperidone (From Risperdal) AdvReac Severe Low blood Verified 12/22/23 17:58 pressure tramadol AdvReac Other Verified 12/22/23 17:58 Family History Father Heart disease CHF (congestive heart failure) Mother No problems noted. Surgical History History of facial surgery History of splenectomy History of laparoscopic cholecystectomy Social History household members: none housing: assisted living facility Smoking Status: Never smoker alcohol intake: current details: occasional substance use type: does not use ROS ROS Narrative Review of systems documented electronically in the medical record personally reviewed by myself pertinent positive and neg (more content not included)... [facility] 10-18-2023 Instructions Selvin Felder MD - 10/18/2023 10:19 AM EDT It was a pleasure to see you today. We addressed the following diagnoses: Parkinson's disease without dyskinesia or fluctuating manifestations (hcc) (primary encounter diagnosis) My recommendations are as follows: 10/18/2023 Visit: Please talk to your eye doctor about the double vision - Continue your medications as you have been taking them. We are not making any changes today. If you feel you are not tolerating them or your symptoms are changing before your next appointment, please feel free to send me a [employer] message or contact the office - Continue PT, exercise - Movement Disorders Medication Schedule: Medications 8a 1p 6p Sinemet 25/100 2 2 2 Return at or around: 04/19/24 If there are any concerns before your next visit, please call or you can send a message through [employer]. You can also now schedule and select appointments through [employer]. Selvin Felder MD documented in this encounter [facility] 10-18-2023 History of Presen t illness Narrative [facility] - FOLLOW UP EVALUATION No referring provider defined for this encounter. Howard Zimmerman MD [address] [facility] [address] [place] [address] I had the pleasure of seeing Ms. Haynes for follow up today. She is a 88 year old left-handed female with a history of IPD since 2009. She is seen with a son. Subjective Previous Plan-04/04/2023 Visit: Continue your medications as you have been taking them. We are not making any changes today. If you feel you are not tolerating them or your symptoms are changing before your next appointment, please feel free to send me a [employer] message or contact the office - PT - Interval History: Still off balance. PT Helps. Has been fairly consistent with exercise. Since last hospitalized she was in the hospital and went to rehab. Just moved to [place]. Getting PT now at [place]. Biting tongue if asleep or awake, reading. Foggy brain in the morning. Chronic. Some lightheadedness. Not sure if gets better at all. Little foggy now. Usually sleeps well but not the last week. New environment. New bed. Sinemet is generally given on time- [place] manages her medications. BP is low today, not typical. Hasn't had much water today. Can get double vision when she reads. Brought it up to eye doctor. Arthritic back pain. Parkinson's Medication Schedule - as of the start of the visit: Medications 8a 1p 6p Sinemet 25/100 2 2 2 Parkinson's Motor Complications Medication duration: 5 hours Wearing off: no (Comment: little bit. if late) Dyskinesia: no Prior Anti-Parkinson Therapies Carbidopa/Levodopa Questionnaires In addition, the following areas that may be affected by abnormal involuntary movements were evaluated: Daily activities Difficulties with eating: Yes (slight) sometimes trouble cutting meat Difficulties in dressing: Yes (mild) independent Difficulties with hygiene activities: Yes (mild) needs help Difficulties with handwriting: Yes (mild) Difficulties with doing hobbies and other activities: Yes (slight) Difficulties turning in bed: Yes (slight) ok. effort but can do it Difficulties getting out of bed, car or chair: Yes (slight) ok. effort but can do it Tremors/Gait/Balance Shaking or tremors: Yes (slight) Walking and balance problems: Yes (moderate) Number of falls in the Last Month: 1 unsure what happened Gait freezing: Yes (slight) Autonomic/Pain Lightheadeness on standing: Yes (mild) Urinary problems: Yes (mild) Constipation problems: Yes (slight) Pain and other sensations: Yes (slight) Speech/Swallowing Speech problems: Yes (slight) Droolin (none) Chewing and swallowing problems: 0 (none) Sleep/Fatigue Sleep problems: Yes (slight) Daytime sleepiness: Yes (mild) Fatigue: Yes (moderate) Mood/Behavior Depression: PHQ-9 Score: 2 usually representing no significant (0-4) depression. Anxiety: JOHNNIE-7 Total Score: 0 usually representing no significant (0-4) anxiety. Finally, the following table shows the patient's overall global physical and mental health using the PROMIS scale: PROMIS-10 Flowsheet Row Office Visit from 10/18/2023 in Neurology Office Visit from 04/04/2023 in Neurology Global Physical Health T Score 39.8 -- Global Mental Health T Score 53.3 -- 0-10 Standard Pain Scale 4 4 *PROMIS-10 scoring scale: mean = 50, over 50 is above average, under 50 is below average ALLERGIES Allergen Reactions Penicillins Rash Tramadol GI Upset Current Outpatient Medications Medication Sig senna-docusate (SENNA PLUS) 8.6-50 mg per tablet Take 1 tablet by mouth once daily. PRN aspirin, enteric coated (ASPIRIN, ENTERIC COATED) 81 mg EC tablet Take 81 mg by mouth once daily. famotidine (PEPCID) 40 mg tablet Take 1 tablet by mouth once daily. carbidopa-levodopa (SINEMET) 25-100 mg per tablet 2 tablet 3 times a day at 8am, 1pm and 6pm atorvastatin (LIPITOR) 40 mg tablet Take 40 mg by mouth once daily. midodrine (PROAMITINE) 5 mg tablet Take 5 mg by mouth three times a day. metoprolol tartrate, short acting, (LOPRESSOR) 12.5 mg tab Take 25 mg by mouth two times a day. MULTIVITAMIN ORAL Take by mouth once daily. Ascorbic Acid 1,000 mg tablet Take 500 mg by mouth once daily. cyanocobalamin (VITAMIN B-12) 1,000 mcg tab Take 1,000 mcg by mouth once daily. (Patient not taking: Reported on 10/18/2023) psyllium husk (METAMUCIL ORAL) Take 1 teaspoonful by mouth once daily as needed. (Patient not taking: Reported on 10/18/2023) No current facility-administered medications for this visit. Objective Vital Signs: Ht 154.9 cm (5' 1) Wt 43.7 kg (96 lb 5.5 oz) SpO2 95% BMI 18.20 kg/m Orthostatic Vitals: Sitting: BP 96/58 Pulse 63 Standing: BP 83/57 Pulse 81 Weight: 43.7 kg (96 lb 5.5 oz) Height: 154.9 cm (5' 1) No LMP recorded. Patient is postmenopausal. Body mass index is 18.2 kg/m . General Physical Examination: General: Awake, alert, interactive, no acute distress, good nutritional status, normal development, well-kept General Neurological Examination: Neurological Exam Mental Status Awake and alert. Language is fluent with no aphasia. Movement Disorders Scales Performed: MDS-UPDRS Motor subscale condition of exam Medication Off/On/Naiive ON Time of UPDRS Time of Last Medication 0800 Last Medication [...] Total 1 Right Total 3 Midline Total 9 Tremor Total / 10 0 PIGD Total / 3 4 Overall Total 13 % Change Compared to Last Filed Total Assessment and Plan: Assessment Ms. Haynes is a left-handed 88 year old year old female with IPD since 2009. She is stable from a motor standpoint. Main complaint is imbalance which typically doesn't respond to Parkinson's medication. Continue PT. No motor fluctuations. No change to medication regimen. It is important for doses to be given on time. The diplopia could be a Parkinson's symptom but if so there is no disease-specific remedy. Discuss with ophthalmology to rule out other causes and consider management options such as prism glasses. 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 We are not making any changes today. If you feel you are not tolerating them or your symptoms are changing before your next appointment, please feel free to send me a [employer] message or contact the office - It [...] is not recommended. Continue PT, exercise - Updated Movement Disorders Medication Schedule: Medications 8a 1p 6p Sinemet 25/100 2 2 2 Return at or around: 04/19/24 Level of service : 71811 ( 30-39 min). Time spent 33 min on the day of service, which included preparing to see the patient, [id number] patient care, completing clinical documentation, performing a medically appropriate examination, and counseling and educating the patient/family/caregiver. Thank you for allowing me to be part of the clinical care of this patient! I look forward to continued participation in the patient s care with you. Please do not hesitate to call with any questions. Sincerely, Selvin Felder MD documented in this encounter [facility] 10-03-2023 Discharge summary Note Date/Time October 03, 2023 7:40am [facility] Medical Records Department [address] [place] [address] Discharge Summary 10/03/23 0737 MR#: [id number] Acct: [id number] Name: KAYLENE HAYNES Rep #:[id number] : 1935 88 From: Howard Zimmerman MD PCP: Dr. Howard Zimmerman MD Status:ADM I N Location: [place] [address] Providers Date of Admission: 09/14/23 Primary Care Physician: Dr. Howard Zimmerman MD Reason For Visit: DEBILITY Diagnosis Discharge Diagnosis (1) Debility: Status: Acute Code(s): R53.81 - Other malaise (2) Falls: Status: Inactive Code(s): W19.XXXA - Unspecified fall, initial encounter (3) Syncope: Status: Acute Code(s): R55 - Syncope and collapse (4) Acute encephalopathy: Status: Acute Code(s): G93.40 - Encephalopathy, unspecified (5) Parkinson's disease: Status: Inactive Code(s): G20 - Parkinson's disease (6) Brain TIA: Status: Acute Code(s): G45.9 - Transient cerebral ischemic attack, unspecified (7) Orthostatic hypotension: Status: Acute Code(s): I95.1 - Orthostatic hypotension (8) Hyperlipidemia: Status: Chronic Code(s): E78.5 - Hyperlipidemia, unspecified Qualifiers: Hyperlipidemia type: unspecified Qualified Code(s): E78.5 - Hyperlipidemia, unspecified (9) GERD (gastroesophageal reflux disease): Status: Acute Code(s): K21.9 - Gastro-esophageal reflux disease without esophagitis Plan 88 year old female with below past medical history hospitalized for syncope, fall, encephalopathy, admitted to TCU with debility, here for rehabilitation, strengthening, prior to disposition determination. Recently, at end of very office visit, I have asked resident if she would be willing to move to congregate living community, she always tells me no. * Debility - PT/OT. * Pain - Tylenol 1000mg q6 prn pain (1-10). * Bowel - senna/colace 1 tablet bid, Magnesium citrate 300ml daily prn. * Adult immunization - Administer pneumonia vaccine, covid vaccine, flu vaccine as appropriate. * DVT prophylaxis - Hold, anemia. * TIA - Aspirin 81mg daily. * Hyperlipidemia - Atorvastatin 40mg qhs. * Parkinson Disease - Sinemet 25/100mg 2 tablets tidac. * GERD - Famotidine 40mg daily. * Orthostatic hypotension - Midodrine 10mg tidcm. * Nutrition - MVI 1 tablet daily. * Vitamin C deficiency - Vitamin C 1000mg daily. * Vitamin B12 deficieny - Vitamin B12 1000mcg daily. * Dry Eyes - Artificial Tears 1gtt ou daily prn. * Encephalopathy - Risperdal 0.125mg qhs x7 days, then stop (GDR). Medications at Discharge Home Medications multivitamin 1 tab PO DAILY vitamin 11/20/18 carbidopa 25 mg-levodopa 100 mg tablet 2 tab PO TID parkinsons 01/05/23 aspirin 81 mg chewable tablet 81 mg PO BREAKFAST blood thinner 1 month #30 tabs 06/29/23 atorvastatin 40 mg tablet 40 mg PO QHS cholesterol 1 month #30 tabs 06/29/23 VITAL TEARS 1 drp ophthalmic (eye) TID DRY EYES 09/08/23 cyanocobalamin (vitamin B-12) 1,000 mcg sublingual tablet 1,000 mcg sublingual DAILY supplement 09/08/23 famotidine 40 mg tablet 40 mg PO DAILY reflux 09/08/23 midodrine 5 mg tablet 10 mg (2 x 5 mg) PO TIDCM keep BP from dropping #0 tabs 09/14/23 Vital Tears 1 drp EACH EYE TID ##0 10/03/23 ascorbic acid (vitamin C) 500 mg tablet 1,000 mg (2 x 500 mg) PO DAILY #0 tabs 10/03/23 metoprolol succinate 25 mg tablet,extended release 24 hr 25 mg PO DAILY 30 days #30 tabs 10/03/23 Hospital Course Operations None Procedures None Summary of Care Provided Minutes Spent on Discharge: 35 Hospital Course: 88 year old female with below past medical history hospitalized for syncope, fall, encephalopathy, admitted to TCU with debility, here for rehabilitation, strengthening, prior to disposition determination. Recently, at end of very office visit, I have asked resident if she would be willing to move to congregate living community, she always tells me no. Discharge to [facility] 10/04/2023, [facility] PT/OT/ST. Physical Exam Const alert General Appearance: cooperative HEENT normocephalic Eyes PERRL and EOMs intact bilaterally Neck supple, no JVD and no carotid bruits Resp normal respiratory effort, normal air movement and clear to auscultation bilaterally Cardio regular rate and regular rhythm GI normal to inspection, nondistended, normoactive bowel sounds, non-tender and non-distended Extremity normal capillary refill General Extremity: Negative for edema Skin no rashes or lesions noted General Skin Exam: no breakdown Neuro Neuro Narrative: Cogwheel rigidity, akathesia. Psych affect normal Appearance: appropriate Medical Records Data Medical Nutrition Assessment Dietitian: Malnutrition Criteria Met Start: 09/26/23 14:49 Freq: Status: Active Protocol: Document 09/26/23 14:49 SLA (Rec: 09/26/23 14:49 SLA Desktop) Nutrition Malnutrition Evidence of Malnutrition Exists Yes Malnutrition (severe): Acute Illness/Injury Evidenced By Suboptimal Energy Intake ( Severe),Weight Loss (Severe), Physical Changes (Severe) Intake Problem Inadequate Oral Intake Status Inactive Problem None at this time Status Inactive Problem Clinical Problem Acute Disease or Injury Related Malnutrition Etiology related to recent issues w/ nausea/vomiting and inadequate energy intake Signs/Symptoms as evidenced by 4.8% unintended wt loss since adm and po intake meeting <75% of est nutritional needs - res with fat/muscle wasting throughout body. Status Active Problem Recommendation Dietitian Recommendations/Changes Continue Regular diet Change to 120mL Ensure Plus High Protein 4x daily with medpass to optimize oral intakes and provide supplemental energy. Rec consider appetite stimulant to help encourage increased po intake at meals Weight / BMI Weight Weight: 43.772 kg Body Mass Index (BMI) 18.8 ABG / Lab / Microbiology Data 09/29/23 06:37 09/28/23 05:30 D/C Instructions Discharge Diet: No restrictions Discharge Activity: Return to Normal Activity, May Shower and Use Walker Weight Bearing Status: Weight bearing as tolerated Call your doctor if you observe: Fever of 101 or Higher, Inability to urinate, Inability to have a bowel movement, Shortness of breath, Dizziness, Fainting spells, Swelling in the ankles, Chest pain and Uncontrolled pain Additional Instructions: Discharge to [facility] 10/04/2023, [facility] PT/OT/ST. Please Follow Up With: [facility] Cardiology When: As scheduled. Meaningful Use Info Meaningful Use Diagnoses (Choose all that apply): None applicable Discharge Plan Admission Admit Date/Time: 09/14/23 15:33 Primary Reason for Your Visit: Debility. Attending Provider: Howard Zimmerman Chi Primary Care Provider: Howard Zimmerman Chi Instructions Additional Instructions / Restrictions: Discharge to [facility] 10/04/2023, [facility] PT/OT/ST. Discharge Orders/Prescriptions Prescriptions: New ascorbic acid (vitamin C) 500 mg Tablet 1,000 mg PO DAILY Qty: 0 0RF metoprolol succinate 25 mg Tablet Extended Release 24 Hr 25 mg PO DAILY 30 Days Qty: 30 0RF Vital Tears 1 drp EACH EYE TID Qty: 0 0RF Continued carbidopa-levodopa 25-100 mg tablet 2 tab PO TID Patient Comments: patient took home dose at 1620 multivitamin tablet 1 tab PO DAILY atorvastatin 40 mg Tablet 40 mg PO QHS 30 Days Qty: 30 2RF aspirin 81 mg Tablet,Chewable 81 mg PO BREAKFAST 30 Days Qty: 30 3RF famotidine 40 mg tablet 40 mg PO DAILY cyanocobalamin (vitamin B-12) 1,000 mcg tablet, sublingual 1,000 mcg sublingual DAILY VITAL TEARS 1 drp ophthalmic (eye) TID Patient Comments: FAMILY STATES THAT PT USES EYE DROPS MADE AT [facility] THAT IS MADE WITH HER BLOOD. AFTER RESEARCH, EYE DROPS ARE CALLED VITAL EYES, OR AUTOLOGOUS SERUM. midodrine 5 mg Tablet 10 mg PO TIDCM Qty: 0 0RF Discontinued C Complex 1,000 mg tablet extended release 1,000 mg PO DAILY risperidone 0.25 mg Tablet 0.25 mg PO QHS Qty: 0 0RF Referrals / Follow Up: Howard Zimmerman Chi, MD [Primary Care Provider] - Disposition Disposition (needs filled in before D/C Order can be placed): Assisted Living 10/03/23 0743 <Electronically signed by Howard Zimmerman MD> Cosigner Signature (if applicable): CC: Dr. Howard Zimmerman MD~ Signed ADDENDUM by Dr. Howard Zimmerman MD on 10/03/23 at 1731 Addendum Discharge to [facility] 10/04/2023, Outpatient PT/OT/ST. 10/03/23 1731<Electronically signed by Howard Zimmerman MD> Cosigner Signature (if applicable): cc: Dr. Howard Zimmerman MD ~* Signed [facility] Work Phone: [phone] Progress note Author Howard Erasmo [facility] September 17, 2023 5:09pm Note Date/Time September 17, 2023 11:4 5am [facility] Medical Records Department [address] [place] [address] Progress Note - Pharmacy 09/17/23 1144 MR#: [id number] Acct: [id number] Name: KAYLENE HAYNES Rep #:[id number] : 1935 88 From: Antonia Woodson PCP: Dr. Howard Zimmerman MD Status:ADM I N Location: [place] [address] Documented by User: Antonia Christian 09/17/23 16:49 TCU RX Drug Regimen Review Subjective/Objective Subjective/Objective: Subjective: 88 YOF presents to [facility] ED 09/08/23 due to fall with diagnosis of micturition syncope admitted to TCU 09/14/23 with debility, here for rehabilitation, strengthening prior to disposition determination. Of note, orthostatic vital signs were negative when done on the inpatient side, midodrinedose also increased during stay. Objective: Allergies Penicillins Allergy (Verified 07/28/23 09:19) Rash tramadol Adverse Reaction (Verified 07/28/23 09:19) Other upset stomach Current Medications Generic Name Dose Route Start Last Admin Trade Name Freq PRN Reason Stop Dose Admin Ascorbic Acid 1,000 mg 09/15/23 10:00 09/16/23 10:41 Ascorbic Acid 500 Mg Tablet PO 1,000 mg DAILY ARIA Administration Aspirin 81 mg 09/15/23 08:00 09/17/23 09:31 Aspirin 81 Mg Tab.Chew PO 81 mg BREAKFAST ARIA Administration Atorvastatin Calcium 40 mg 09/14/23 22:00 09/16/23 21:32 Atorvastatin Calcium 40 Mg Tablet PO 40 mg QHS ARIA Administration Carbidopa/Levodopa 2 tablet 09/14/23 16:45 09/17/23 09:30 Carbidopa/Levodopa 25/100 Tablet PO 2 tablet TIDAC ARIA Administration Cyanocobalamin 1,000 mcg 09/15/23 10:00 09/16/23 10:41 Cyanocobalamin 500 Mcg Tablet PO 1,000 mcg DAILY ARIA Administration Famotidine 40 mg 09/15/23 10:00 09/17/23 09:31 Famotidine 20 Mg Tablet PO 40 mg DAILY ARIA Administration Magnesium Citrate 300 ml 09/14/23 18:10 09/15/23 18:18 Magnesium Citrate 300 Ml PO 150 ml DAILY PRN Administration Constipation Midodrine 10 mg 09/14/23 17:45 09/17/23 09:31 Midodrine Hcl 5 Mg Tablet PO 10 mg TIDCM [facility] Administration Multivitamins 1 tablet 09/15/23 08:00 09/16/23 08:30 Multivitamins,Therapeutic Tablet PO 1 tablet DAILYCM ARIA Administration Non-Formulary Medication 1 drp 09/16/23 22:00 09/16/23 22:42 Vital Tears EACH EYE 1 drp QHS [facility] Administration Nutritional Formula (Lactose Free) 120 ml 09/15/23 07:45 09/17/23 09:38 Ensure Plus High Protein 120 Ml Liquid PO Not Given TIDCM [facility] Prochlorperazine Maleate 5 mg 09/17/23 07:51 09/17/23 08:20 Prochlorperazine 5 Mg Tablet PO 5 mg Q6H PRN PRN Administration NAUSEA/VOMITING Risperidone 0.125 mg 09/14/23 22:00 09/16/23 21:31 Risperidone 0.25 Mg Tablet PO 09/21/23 22:01 0.125 mg QHS [facility] Administration Protocol Senna/Docusate Sodium 1 tablet 09/14/23 22:00 09/16/23 21:32 Senna/Docusate Sodium 1 Tablet PO 1 tablet BID ARIA Administration Tuberculin PPD 0.1 ml 09/22/23 10:00 Tuberculin,Purif.Prot.Deriv. 50 Tu/Ml Vial ID 09/22/23 10:01 X1 ONE Problem List GERD (gastroesophageal reflux disease) (Acute) Orthostatic hypotension (Acute) Brain TIA (Acute) Acute encephalopathy (Acute) Syncope (Acute) Falls (Acute) Debility (Acute) Parkinson's disease (Acute) Hyperlipidemia (Chronic) Vital Signs Temp Pulse Resp BP Pulse Ox O2 Del Method 97.4 F L 70 16 137/83 H 98 Room Air 09/16/23 15:59 09/16/23 15:59 09/16/23 15:59 09/16/23 15:59 09/16/23 15:59 09/16/23 15:59 Oxygen Delivery Method Room Air Weight: 43.636 kg Body Mass Index (BMI) 18.8 Sodium 139 mmol/L (136-145) 09/15/23 05:26 Potassium 4.4 mmol/L (3.5-5.1) 09/15/23 05:26 Chloride 107 mmol/L (98-107) 09/15/23 05:26 Carbon Dioxide 28.0 mmol/L (21.0-32.0) 09/15/23 05:26 Anion Gap 4 (5-15) L 09/15/23 05:26 BUN 40 mg/dL (7-18) H 09/15/23 05:26 Creatinine 1.05 mg/dL (0.55-1.02) H 09/15/23 05:26 Est GFR (MDRD) Af Amer 64 mL/min (>60) 09/15/23 05:26 Est GFR (MDRD) Non-Af 53 mL/min (>60) L 09/15/23 05:26 BUN/Creatinine Ratio 38.1 RATIO (10-20) H 09/15/23 05:26 Glucose 84 mg/dL (74-106) 09/15/23 05:26 Assessment/Plan: 1. FALLS: Medications evaluated for risk of fall, although neuro diagnosed recent fall as micturition syncope. Following meds can be associated with falls: carbidopa/levodopa 25/100 2 tabs po tidac, risperidone 0.125mg po qhs take until 09/21/23 then stop. Risperidone already being tapered. Patient has diagnosis of Parkinsons necessitating carbidopa/levodopa, however, please monitor stability upon standing and walking and sx of orthostasis. If patient becomes orthostatic positive, may need to reduce carbidopa/levodopa dose. 2. HLD: Lipitor 40mg Po QHS. Please monitor AST (38 on 09/10/23) and ALT (11 on09/09/33) as well as muscle weakness and pain. Lipid panel annually or sooner if clinically indicated. 2. GERD: Pepcid 40mg PO daily. Please continue to monitor stomach upset and heartburn. Please encourage non-pharmacologic therapies to help minimize GERD flare-ups. 3. TIA: Aspirin 81mg Po daily. Please monitor for a GI bleed, blood in stool orurine, repeat HGB as necessary ( HGB 11.6 on 09/15/23) 4. PARKINSON DISEASE: Sinemet 25/100mg (2) tablets Po TIDAC. Please monitor fornausea/vomiting/GI upset (did use dose of prochlorperazine on 09/17/23). If N/V not controlled, may need to consider dose reduction if clinically possible. Monitor for psychiatric symptoms and Parkinsons symptoms. Please encourage non-pharmacologic therapies use of cane and/or walker for walking stability. 5. ORTHOSTATIC HYPOTENSION: Midodrine 10mg Po tidcm. BP on TCU has ranged from 92/62-137/83. Please continue to monitor patient BP. Consider please checking orthostatic BP at regular intervals given h/o falls and on meds which can cause orthostasis. 6. ENCEPHALOPATHY/SUNDOWNING: Risperdal 0.125mg Po qhs x 7 days then stop 09/21/23 (GDR). Monitor for neurological/behavior changes, sedation, falls. 7. Bowel: Senna/Docusate 1 tab Po BID (pt refused a dose since admit), Magnesium Citrate 300 ML Po daily prn (given 09/14) . BM on 09/15 after receiving mag citrate, may need to increase Senna/Docusate if continued need for mag citrate. Continue to monitor for constipation/diarrhea, hydration status. 8. Nausea/Vomiting: prochlorperazine 5mg po q6h prn. Dose given 09/17/23 for nausea. Continue to monitor nausea/vomiting. 9. Dry Eyes: ARtificial Tears 1 drop both eyes daily as needed. Continue to monitor for dry eyes 10. Vitamins/Supplements: Ascorbic Acid Po 1000mg daily, Cyanocobalamin Po 1000mcg daily, Multivitamin po daily. Ensure plus high protein tidcm. PLease consider monitoring for nutritional status, oral in take, weight and Albumin if clinically warrented. Assessment/Plan for indications treated with psychotropic medications: 1. Risperdal 0.125mg po qhs x7 days then stop. (stop date 09/21/23). Medical chart and medication regimen reviewed. The following medication irregularities or issues were identified: 1. Given h/o falls, carbidopa/levodopa therapy and use of midodrine, consider checking orthostatic vital signs periodically to monitor status. Date Date of Note:: 09/17/23 Documented by User: Dr. Howard Zimmerman MD 09/17/23 17:09 [facility] RX Drug Regimen Review Provider Comments Provider responsibility Provider Comments to Recommendations by Pharmacy: Agree 09/17/23 1649 <Electronically signed by Antonia Christian> Antonia Clarkeigner Signature (if applicable): 09/17/23 1709 <Electronically signed by Howard Zimmerman MD> CC: ~ Signed [facility] Work Phone: [phone]) 191-890003-29-2024 History and physical note Author Howard Zimmerman [facility] September 14, 2023 6:10pm Note Date/Time September 14, 2023 6:0 4pm [facility] Medical Records Department [address] [place] [address] History & Physical Exam 09/14/23 5625 MR#: [id number] Acct: [id number] Name: KAYLENE HAYNES LY Rep #:[id number] : 1935 88 From: Howard Zimmerman MD PCP: Dr. Howard Zimmerman MD Status:ADM I N [id number] - General General Date of Admission: 09/14/23 Date of Service: 09/14/23 Chief Complaint: Here for rehabilitation. HPI Narrative 09/08/2023 KAYLENE HAYNES, is a 88 Female who presents to [facility] ED with syncope. Found unconscious on commode, unresponsive. Found by son, not talking in AM for several months, thought progression of Parkinson Disease. Fell 2 days ago, hurt right hip. Labs okay, EKG okay. X-ray right hip negative, CT brain negative, CT cervical spine negative, Chest X-ray negative. 09/08/2023 Admit to [facility]. PT/OT for Debility. 09/09/2023 UA negative, WBC 18.7. PT/OT for SNF. 09/09/2023 Mild agitation, Seroquel x 1 dose given. 09/10/2023 PT/OT for TCU. Risperdal QHS for delirium. Monitor anemia. 09/11/2023 Check EEG for syncope. 09/11/2023 EEG showed mild diffuse encephalopathy, no seizure activity. 09/12/2023 Doing okay, Await Pre-CERT for SNF. PT/OT SNF. 09/13/2023 No issues. Await Pre-CERT TCU. Risperdal helpful for . 09/14/2023 Admit to TCU with debility, here for rehabilitation, strengthening, prior to discharge home alone or possibly to [facility] Medical History (Updated 09/14/23 @ 18:[address] Howard Zimmerman MD) Brain TIA CKD (chronic kidney disease), stage II History of atrial myxoma Hyperlipidemia Hypertension Lymphoma Nonrheumatic mitral (valve) prolapse Nonrheumatic mitral valve regurgitation Nonrheumatic tricuspid valve regurgitation Parkinsons disease Parotid tumor Premature atrial contractions Premature ventricular contraction Home Medications multivitamin 1 tab PO DAILY vitamin 11/20/18 [History Last Taken 01/15/23] carbidopa 25 mg-levodopa 100 mg tablet 2 tab PO TID parkinsons 01/05/23 [History Last Taken 06/28/23 16:20] aspirin 81 mg chewable tablet 81 mg PO BREAKFAST blood thinner 1 month #30 tabs 06/29/23 [Rx Last Taken Unknown] atorvastatin 40 mg tablet 40 mg PO QHS cholesterol 1 month #30 tabs 06/29/23 [Rx Last Taken Unknown] VITAL TEARS 1 drp ophthalmic (eye) PRN PRN DRY EYES 09/08/23 [History Last Taken Unknown] ascorbic acid (vitamin C) 1,000 mg tablet,extended release (C Complex) 1,000 mg PO DAILY supplement 09/08/23 [History Last Taken Unknown] cyanocobalamin (vitamin B-12) 1,000 mcg sublingual tablet 1,000 mcg sublingual DAILY supplement 09/08/23 [History Last Taken Unknown] famotidine 40 mg tablet 40 mg PO DAILY reflux 09/08/23 [History Last Taken Unknown] midodrine 5 mg tablet 10 mg (2 x 5 mg) PO TIDCM keep BP from dropping #0 tabs 09/14/23 [Rx Last Taken Unknown] risperidone 0.25 mg tablet 0.25 mg PO QHS sleep #0 tabs 09/14/23 [Rx Last Taken Unknown] Allergy/AdvReac Type Severity Reaction Status Date / Time Penicillins Allergy Rash Verified 07/28/23 09:19 tramadol AdvReac Other Verified 07/28/23 09:19 Family History Father Heart disease CHF (congestive heart failure) Mother No problems noted. Surgical History History of laparoscopic cholecystectomy History of splenectomy Social History household members: none Smoking Status: Never smoker alcohol intake: current details: occasional substance use type: does not use ROS Constitutional Constitutional: Reports fatigue and weakness; Denies chills, fever(s) or weight gain ENT HEENT: Denies headache(s), nasal congestion or nasal discharge Cardiovascular Cardiovascular: Denies chest pain or palpitations Respiratory/Chest Respiratory/Chest: Denies cough, excessive phlegm production or shortness of breath with exertion Gastrointestinal Gastrointestinal: Denies abdominal pain, nausea or vomiting Genitourinary Genitourinary: Denies dysuria Musculoskeletal Musculoskeletal: Denies joint pain or joint swelling Integumentary Integumentary: Denies rash or wounds Neurologic Neurologic: Denies focal weakness, numbness or tingling Psychiatric Psychiatric: Denies anxiety, auditory hallucinations, depression, homicidal ideation or suicidal ideation Vital Signs Vital Signs Vital Signs: 09/14/23 15:45 Temperature 97.2 F L Temperature Source Temporal Pulse Rate 91 Respiratory Rate 16 Blood Pressure 124/76 H Blood Pressure Mean 92 Blood Pressure Source Monitor Blood Pressure Position Sitting Blood Pressure Location Left Arm Pulse Ox 100 Oxygen Delivery Method Room Air Physical Exam Const alert General Appearance: cooperative HEENT normocephalic Eyes PERRL and EOMs intact bilaterally Neck supple, no JVD and no carotid bruits Resp normal respiratory effort, normal air movement and clear to auscultation bilaterally Cardio regular rate and regular rhythm GI normal to inspection, nondistended, normoactive bowel sounds, non-tender and non-distended Extremity normal capillary refill General Extremity: Negative for edema Skin no rashes or lesions noted General Skin Exam: no breakdown Psych affect normal Appearance: appropriate Assessment & Plan Assessment/Plan (1) Debility: (2) Falls: (3) Syncope: (4) Acute encephalopathy: (5) Parkinson's disease: (6) Brain TIA: (7) Orthostatic hypotension: (8) Hyperlipidemia: QUALIFIERS: Hyperlipidemia type: unspecified Qualified Code(s): E78.5 - Hyperlipidemia, unspecified (9) GERD (gastroesophageal reflux disease): PLAN: Plan 88 year old female with below past medical history hospitalized for syncope, fall, encephalopathy, admitted to TCU with debility, here for rehabilitation, strengthening, prior to disposition determination. Recently, at end of very office visit, I have asked resident if she would be willing to move to congregate living community, she always tells me no. * Debility - PT/OT. * Pain - Tylenol 1000mg q6 prn pain (1-10). * Bowel - senna/colace 1 tablet bid, Magnesium citrate 300ml daily prn. * Adult immunization - Administer pneumonia vaccine, covid vaccine, flu vaccine as appropriate. * DVT prophylaxis - Hold, anemia. * TIA - Aspirin 81mg daily. * Hyperlipidemia - Atorvastatin 40mg qhs. * Parkinson Disease - Sinemet 25/100mg 2 tablets tidac. * GERD - Famotidine 40mg daily. * Orthostatic hypotension - Midodrine 10mg tidcm. * Nutrition - MVI 1 tablet daily. * Vitamin C deficiency - Vitamin C 1000mg daily. * Vitamin B12 deficieny - Vitamin B12 1000mcg daily. * Dry Eyes - Artificial Tears 1gtt ou daily prn. * Encephalopathy - Risperdal 0.125mg qhs x7 days, then stop (GDR). 09/14/23 1810 <Electronically signed by Howard Zimmerman MD> Cosigner Signature (if applicable): CC: Dr. Howard Zimmerman MD~ Signed [facility] Work Phone: [phone]) 743-861803-29-2024 Discharge summary Author Maame Pinon [facility] September 14, 2023 11:51am Note Date/Time September 14, 2023 11: 51am [facility] Medical Records Department [address] [place] [address] Transfer to [facility] MR#: [id number] Acct: [id number] Name: KAYLENE HAYNES LY Rep #:[id number] : 1935 88 From: Maame Pinon DO PCP: Dr. Howard Zimmerman MD Status:ADM I NO Certification of patient admission REQUIRED AT TIME OF ADMISSION. I CERTIFY THAT POST-HOSPITAL ECF SERVICES ARE REQUIRED TO BE GIVEN ON AN IN-PATIENT BASIS BECAUSE OF THE ABOVE NAMED PATIENT'S NEED FOR PENITENTIARY CARE ON A CONTINUING BASIS FOR THE CONDITION(S) FOR WHICH HE/SHE WAS RECEIVINGIN-PATIENT HOSPITAL SERVICES PRIOR TO HIS/HER TRANSFER TO THE F. 09/14/23 1151<Electronically signed by Maame Pinon DO> Diet Diet Order/Speech Therapy: 09/08/23 14:41 Diet: Regular - General Food consistency:: Regular Liquid Consistency:: Regular/Thin Routine Orders/Code Status Suppository Frequency: Daily PRN O2 Frequency: PRN Keep PO Greater than or Equal to (%): 89 Routine Lab Work: CBC (As needed) and BMP (As needed) Code Status: DNRCC-A (No intubation) Wound(s) right abdalla: Wound Type: Abrasion Suggestions for Active Care Change Position every (hours): 2 Therapies Weight Bearing: Full weight bearing Physical Therapy: Eval and Treat Occupational Therapy: Eval and Treat Speech Therapy: Eval and Treat Problem/Diagnosis (1) Parkinson's disease: Status: Acute Code(s): G20 - Parkinson's disease (2) Debility: Status: Acute Code(s): R53.81 - Other malaise (3) Generalized weakness: Status: Acute Code(s): R53.1 - Weakness (4) Falls: Status: Acute Code(s): W19.XXXA - Unspecified fall, initial encounter (5) Leukocytosis: Status: Acute Code(s): D72.829 - Elevated white blood cell count, unspecified (6) Anemia: Status: Acute Code(s): D64.9 - Anemia, unspecified Allergies/Procedures Done in Hospital Allergies Penicillins Allergy (Verified 07/28/23 09:19) Rash tramadol Adverse Reaction (Verified 07/28/23 09:19) Other upset stomach Procedures: Electroencephalogram and - (Brain CT/cervical spine CT/chest x- ray/hip and pelvis x-ray) Type of Care/Length of Stay Estimated LOS: Convalescent Care Less Than 30 days Type of Care Needed: Skilled Rehab Potential: Good Prognosis: Fair Additional Orders/Day of Discharge Day of Discharge: 09/14/23 Dietary and Speech Recommendations Dietitian Recommendations/Changes: Continue with Regular diet at this time for liberalization. Will order EPHP 120mL 4x/day with medpass to help increase oral intakes and prevent further weight loss. Will reassess oral intakes upon f/u. Follow Up Care Please follow up with your Primary Care Physician in: In 1 to 2 weeks after discharge from skilled facility Discharge Plan Admission Admit Date/Time: 09/08/23 13:09 Attending Provider: Maame Pinon Primary Care Provider: Howard Zimmerman [employer] Providers: Gonzalez Garza; Karen Mckeon; Farzana Levin; Vilma Shine; Koko Mckeon; Ashlee Bautista; ERIC BATRES; Eri Interiano; Alayna Valverde; Reji Reid; Marly Ochoa; Carlos Whipple; Darcy Hernandez; Paige Martinez; Timothy Fortune; Cherie Mark; Jose Benson; Isiah Kelly; Vincent Suresh; Ruy Sun; Elian Stroud; John Quesada; Pamela Kamara; Jonathon Rodríguez; Mallika Pinon; Tomasz,Roopa Instructions Patient Instructions: ED Fainting, Uncertain Cause Discharge Orders/Prescriptions Prescriptions: No Action carbidopa-levodopa 25-100 mg tablet 2 tab PO TID Patient Comments: patient took home dose at 1620 multivitamin tablet 1 tab PO DAILY midodrine 5 mg tablet 5 mg PO TID atorvastatin 40 mg Tablet 40 mg PO QHS 30 Days Qty: 30 2RF aspirin 81 mg Tablet,Chewable 81 mg PO BREAKFAST 30 Days Qty: 30 3RF famotidine 40 mg tablet 40 mg PO DAILY cyanocobalamin (vitamin B-12) 1,000 mcg tablet, sublingual 1,000 mcg sublingual DAILY C Complex 1,000 mg tablet extended release 1,000 mg PO DAILY VITAL TEARS Patient Comments: FAMILY STATES THAT PT USES EYE DROPS MADE AT [facility] THAT IS MADE WITH HER BLOOD. AFTER RESEARCH, EYE DROPS ARE CALLED VITAL EYES, OR AUTOLOGOUS SERUM. Referrals / Follow Up: Howard Zimmerman Chi, MD [Primary Care Provider] - 09/14/23 1151 <Electronically signed by Maame Pinon DO> Cosigner Signature (if applicable): CC: Paige Martinez; Alayna Valverde; John Salmeron; Farzana Levin MD; Darcy Hernandez MD; Carlos Whipple MD; Vilma Shine MD; Dr. Le Batres MD; Dr. Karen Mckeon MD; Dr. Timothy Fortune MD; Dr. Cherie Mark MD; Dr. Isiah Kelly MD; Dr. Jose Benson MD; Dr. Gonzalez Garza DO; Dr. Vincent Suresh DO; Dr. Elian Stroud MD; Dr. Ruy Sun MD; Dr. Pamela Kamara MD; Dr. Jonathon Rodríguez MD; Dr. Howard Zimmerman MD; Dr. Mallika Pinon MD; Ashlee Bautista MD; MD Carlos; Eri Interiano DO; Reji Reid MD; Marly Ochoa DO; Roopa Tolbert MD ~ [facility] Work Phone: [phone]) [phone] Discharge summary Author Maame Pinon [facility] September 14, 2023 1:41pm Note Date/Time September 14, 2023 11: 51am [facility] Medical Records Department [address] [place] [address] Discharge Summary 09/14/23 1151 MR#: [id number] Acct: [id number] Name: KAYLENE HAYNES Rep #:[id number] : 1935 88 From: Maame Pinon DO PCP: Dr. Howard Zimmerman MD Status:ADM I NO Location: [place] [id number] Providers Date of Admission: 09/08/23 Date of Discharge: 09/14/23 Primary Care Physician: Dr. Howard Zimmerman MD Consultations 09/11/23 10:49 neuro [Consult: Tele-Neurology] Routine Consulting Provider: [facility] Reason for Consult: syncope?/Fall EMERGENT Consult: No MD Notified: Yes Date Notified: 09/11/23 Time Notified: 12:16 Method of Notification: Answering Service Nursing Unit Staff Notify [facility] of Tele-Neurology Consult: Yes Reason For Visit: DEBILITY Diagnosis Discharge Diagnosis (1) Parkinson's disease: Status: Acute Code(s): G20 - Parkinson's disease (2) Debility: Status: Acute Code(s): R53.81 - Other malaise (3) Generalized weakness: Status: Acute Code(s): R53.1 - Weakness (4) Falls: Status: Acute Code(s): W19.XXXA - Unspecified fall, initial encounter (5) Leukocytosis: Status: Acute Code(s): D72.829 - Elevated white blood cell count, unspecified (6) Anemia: Status: Acute Code(s): D64.9 - Anemia, unspecified Medications at Discharge Home Medications multivitamin 1 tab PO DAILY vitamin 11/20/18 carbidopa 25 mg-levodopa 100 mg tablet 2 tab PO TID parkinsons 01/05/23 aspirin 81 mg chewable tablet 81 mg PO BREAKFAST 1 month #30 tabs 06/29/23 atorvastatin 40 mg tablet 40 mg PO QHS 1 month #30 tabs 06/29/23 VITAL TEARS DRY EYES 09/08/23 ascorbic acid (vitamin C) 1,000 mg tablet,extended release (C Complex) 1,000 mg PO DAILY 09/08/23 cyanocobalamin (vitamin B-12) 1,000 mcg sublingual tablet 1,000 mcg sublingual DAILY 09/08/23 famotidine 40 mg tablet 40 mg PO DAILY 09/08/23 midodrine 5 mg tablet 10 mg (2 x 5 mg) PO TIDCM #0 tabs 09/14/23 risperidone 0.25 mg tablet 0.25 mg PO QHS #0 tabs 09/14/23 Hospital Course Procedures Electroencephalogram, EKG and - (CT brain/CT cervical spine/chest x-ray/hip and pelvic x-ray) Summary of Care Provided Minutes Spent on Discharge: 37 Hospital Course: Mrs. Haynes is an 88-year-old white female who presented to the emergency department at [facility] on 09/08/2023 after a fall. She was found in her bathroom sitting on the commode leaning against the wall and was foundby her family. She does have a history of Parkinson disease and has history of intermittent falls. She has some caregivers during the day but none at night. Family reported that when she was found she was somewhat dazed and it took some time to for her to achieve normalcy with regards to mental status. She had an episode similar to this late last year and they brought her in extensive stroke workup was done at that time including an echocardiogram, MRI of the brain, and outpatient event monitor. The event monitor had no abnormal rhythms however thepatient did not have any events while she was on the monitor. Given the event this time we did obtain an EEG and a repeat neurology consultation. EEG was unremarkable for any epileptiform activity and only showed mild diffuse encephalopathy. Orthostatic vitals were negative and neurology felt that she probably had micturition syncope. She was seen by physical and Occupational Therapy during her hospital course and they recommended ongoing physical and occupational therapy at the time of discharge. She also has a history of chronic orthostatic hypotension. We did increase her midodrine from 5 mg 3 times daily to 10 mg 3 times daily in the event that this may have been contributing to her syncopal episodes as well. She was accepted by the transitional care unit on 09/10/2023 however we did not obtain pre-CERT for her discharge until 09/14/2023. She was stable throughout that time. We did monitor on telemetry for any abnormal events and she had none. She was able to be discharged to the TCU in stable condition on 09/14/2023. We did start very low-dose risperidone at night to help with her sundowning as it was a significant issue early in her stay but had resolved since. Discharge diagnoses: Falls Debility Generalized weakness Syncope Intermittent delirium History of severe malnutrition Anemia Hyperlipidemia Parkinson's disease Chronic hypotension GERD History of PACs CKD stage IIIb Cognitive impairment due to dementia type unclear Physical Exam Const alert, oriented x3 and no apparent distress Constitutional Narrative: Thin, elderly, white female, sitting up in a chair at the bedside, watching television, son at bedside, very pleasant, oriented to self and place but not time, appears comfortable, nontoxic General Appearance: cooperative, comfortable, well kempt and well developed Orientation / Consciousness: awake, oriented to person, oriented to place and confused Nutritional Appearance: thin HEENT normocephalic, head/scalp atraumatic and moist oral mucous membranes HEENT Narrative: Mild to moderate hearing loss, Mallampati is 1-2, no thrush Eyes PERRL, EOMs intact bilaterally and conjunctivae normal Eyes Narrative: No scleral icterus Neck no lymphadenopathy and supple Neck Narrative: Trachea midline, no thyroid enlargement noted Resp normal respiratory effort, no retractions, no use of accessory muscles and clearto auscultation bilaterally Auscultation: Negative for rales, rhonchi or wheezes Cardio regular rate, regular rhythm, S1 normal heart sound, S2 normal heart sound, no murmurs, no rub, no gallops and no clicks Cardio Narrative: Intermittent irregularity due to PACs GI normal to inspection, nondistended, normoactive bowel sounds, soft to palpation and non-tender GI Narrative: Thin Extremity no clubbing, cyanosis or edema Extremity Narrative: Decreasing muscle mass, pedal pulses and radial pulses are 2+ Skin skin turgor normal and no jaundice Neuro CN's II-XII intact bilaterally, moves all extremities and no focal motor deficits Neuro Narrative: Gait has shortened strides utilizing a wheeled walker, generalized weakness noted with proximal musculature being greater than distal Sensorium / Orientation: awake, alert, oriented to person and oriented to place Speech: speech normal Psych affect normal Psych Narrative: Very pleasant, mildly confused, interacts appropriately Weight / BMI Weight Weight: 39.916 kg Body Mass Index (BMI) 17.2 ABG / Lab / Microbiology Data 09/11/23 06:00 09/10/23 05:55 Meaningful Use Info Meaningful Use Diagnoses (Choose all that apply): None applicable Discharge Plan Admission Admit Date/Time: 09/08/23 13:09 Primary Reason for Your Visit: Weakness/debility Attending Provider: Maame Pinon Primary Care Provider: Howard Zimmerman Chi [employer] Providers: Gonzalez Garza; Karen Mckeno; Farzana Levin; Vilma Shine; Koko Mckeon; Ashlee Bautista; ERIC BATRES; Eri Interiano; Alayna Valverde; Reji Reid; Marly Ochoa; Carlos Whipple; Darcy Hernandez; Paige Martinez; Timothy Fortune; Cherie Mark; Jose Benson; Isiah Kelly; Vincent Suresh; Ruy Sun; Elian Stroud; John Quesada; Pamela Kamara; Jonathon Rodríguez; Mallika Pinon; Roopa Tolbert Discharge Orders/Prescriptions Prescriptions: New midodrine 5 mg Tablet 10 mg PO TIDCM Qty: 0 0RF risperidone 0.25 mg Tablet 0.25 mg PO QHS Qty: 0 0RF Continued carbidopa-levodopa 25-100 mg tablet 2 tab PO TID Patient Comments: patient took home dose at 1620 multivitamin tablet 1 tab PO DAILY atorvastatin 40 mg Tablet 40 mg PO QHS 30 Days Qty: 30 2RF aspirin 81 mg Tablet,Chewable 81 mg PO BREAKFAST 30 Days Qty: 30 3RF famotidine 40 mg tablet 40 mg PO DAILY cyanocobalamin (vitamin B-12) 1,000 mcg tablet, sublingual 1,000 mcg sublingual DAILY C Complex 1,000 mg tablet extended release 1,000 mg PO DAILY VITAL TEARS Patient Comments: FAMILY STATES THAT PT USES EYE DROPS MADE AT [facility] THAT IS MADE WITH HER BLOOD. AFTER RESEARCH, EYE DROPS ARE CALLED VITAL EYES, OR AUTOLOGOUS SERUM. Discontinued midodrine 5 mg tablet 5 mg PO TID Referrals / Follow Up: Howard Zimmerman Chi, MD [Primary Care Provider] - Within 1 Week (After discharge from skilled facility) Disposition Disposition (needs filled in before D/C Order can be placed): [facility] Facility Charges/Coding Visit Charges Inpatient E&M: 68351 SNF Disch >30 Min 09/14/23 1341 <Electronically signed by Maame Pinon DO> Cosigner Signature (if applicable): CC: Dr. Maame Pinon DO; Dr. Howard Zimmerman MD~ Signed [facility] Work Phone: 1(459) 921-149603-28-2024 Progress note Author Maame Pinon [facility] September 13, 2023 4:24pm Note Date/Time September 13, 2023 4:2 4pm [facility] Medical Records Department [address] [place] [address] Progress Note - Hospitalist 09/13/23 1622 MR#: [id number] Acct: [id number] Name: KAYLENE HAYNES LY Rep #:[id number] : 1935 88 From: Maame Pinon DO PCP: Dr. Howard Zimmerman MD Status:ADM I NO Location: [place] [address] Reason for Visit Reason for Visit: Weakness/Debility Subjective Subjective No issues overnight. Patient is very pleasantly awaiting pre-CERT for detention placement. Objective Data Objective Data Vital Signs: Vital Signs Temp Pulse Resp BP Pulse Ox O2 Del Method 97.8 F 72 18 98/69 98 Room Air 09/13/23 14:09 09/13/23 14:09 09/13/23 14:09 09/13/23 14:09 09/13/23 14:09 09/13/23 14:09 Oxygen Delivery Method Room Air Weight: 39.916 kg Body Mass Index (BMI) 17.2 Intake & Output: Intake and Output for Last 24 Hours 09/11/23 09/12/23 09/13/23 23:59 23:59 23:59 Intake Total 200 / 200 50 / 50 Balance 200 / 200 50 / 50 Lab / Micro Data 09/11/23 06:00 09/10/23 05:55 Physical Exam Const alert and no apparent distress Constitutional Narrative: Thin, elderly, white female, sitting up in a chair at the bedside finishing her breakfast and watching television, appears comfortable, very pleasant and interactive, oriented to self and place but not time General Appearance: cooperative HEENT normocephalic, head/scalp atraumatic and moist oral mucous membranes Neuro Sensorium / Orientation: awake, alert, oriented to person and oriented to place Speech: speech normal Psych affect normal Psych Narrative: Very pleasant, mildly confused, interacts appropriately Assessment & Plan Assessment/Plan (1) Parkinson's disease: (2) Debility: (3) Generalized weakness: (4) Falls: (5) Leukocytosis: (6) Anemia: PLAN: Plan Falls/debility/generalized weakness/altered level of consciousness -Per further discussion with her other son it sounds like she may have been having some syncopal episodes associated with this -Had previous admission in June for similar event -Echo was unremarkable, MRI was unremarkable and neurology was consulted and felt that it may be TIA -Placed on baby aspirin and had a 30-day event monitor with no abnormalities detected -EEG only showed mild encephalopathy versus normal drowsiness and nothing concerning for seizures -Neurology evaluated the patient and felt that she either had micturition syncope versus orthostasis -Orthostatic vital signs were negative -Given this likely micturition syncope -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 along with her Parkinson's disease -PT and Occupational Therapy had recommended ongoing therapy services at discharge and plan is for discharge to TCU -Case management/social work following--> awaiting pre-CERT Intermittent delirium -Suspect related to sundowning with mild cognitive impairment at baseline -Risperdal seem to have helped with her sundowning History of severe malnutrition -Continue supplements -Dietitian is following Anemia -This has normalized Hyperlipidemia -Continue home Lipitor Parkinson's disease -Continue carbidopa levodopa Chronic hypotension -Suspect related to Parkinson's -Continue midodrine GERD -Continue home famotidine History of PACs -Chronic -No intervention required CKD stage IIIb -Stable DVT prophylaxis -Continue subcu heparin CODE STATUS -DNR CCA with no intubation Patient has medically been ready for discharge since 08/12/2023 and currently awaiting pre-CERT from insurance company for [facility] for ongoing rehab services. Charges/Coding Visit Charges Inpatient E&M: 86266 Subs Hosp L1 09/13/23 1626 <Electronically signed by Maame Pinon DO> Cosigner Signature (if applicable): CC: ~ Signed [facility] Work Phone: 1(122) 381-558603-27-2024 Progress note Author Maame Pinon [facility] September 12, 2023 4:49pm Note Date/Time September 12, 2023 4:4 6pm [facility] [address] [place] [address] Progress Note - Hospitalist 09/12/23 1644 MR#: [id number] Acct: [id number] Name: KAYLENE HAYNES Rep #:[id number] : 1935 88 From: Maame Pinon DO PCP: Dr. Howard Zimmerman MD Status:ADM I NO Location: [facility] [place] [address] Reason for Visit Reason for Visit: Debility/weakness Subjective Subjective Patient states she is doing okay denies any complaints. Still awaiting pre-CERT. Objective Data Objective Data Vital Signs: Vital Signs Temp Pulse Resp BP Pulse Ox O2 Del Method 98.7 F 80 18 104/77 98 Room Air 09/12/23 14:20 09/12/23 14:20 09/12/23 14:20 09/12/23 14:20 09/12/23 14:20 09/12/23 14:20 Oxygen Delivery Method Room Air Weight: 39.916 kg Body Mass Index (BMI) 17.2 Intake & Output: Intake and Output for Last 24 Hours 09/10/23 09/11/23 09/12/23 23:59 23:59 23:59 Intake Total 440 / 440 200 / 200 50 / 50 Balance 440 / 440 200 / 200 50 / 50 Lab / Micro Data 09/11/23 06:00 09/10/23 05:55 Physical Exam Const alert and no apparent distress Constitutional Narrative: Thin, elderly, white female, sitting up in a chair at the bedside finishing her breakfast and watching television, appears comfortable, very pleasant and interactive, oriented to self and place but not time Psych affect normal Psych Narrative: Very pleasant, mildly confused, interacts appropriately Assessment & Plan Assessment/Plan (1) Parkinson's disease: (2) Debility: (3) Generalized weakness: (4) Falls: (5) Leukocytosis: (6) Anemia: PLAN: Plan Falls/debility/generalized weakness/altered level of consciousness -Per further discussion with her other son it sounds like she may have been having some syncopal episodes associated with this -Had previous admission in June for similar event -Echo was unremarkable, MRI was unremarkable and neurology was consulted and felt that it may be TIA -Placed on baby aspirin and had a 30-day event monitor with no abnormalities detected -EEG only showed mild encephalopathy versus normal drowsiness and nothing concerning for seizures -Neurology evaluated the patient and felt that she either had micturition syncope versus orthostasis -Orthostatic vital signs were negative -Given this likely micturition syncope -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 along with her Parkinson's disease -PT and Occupational Therapy had recommended ongoing therapy services at discharge and plan is for discharge to TCU -Case management/social work following--> awaiting pre-CERT Intermittent delirium -Suspect related to with mild cognitive impairment at baseline -Risperdal seem to have helped with her History of severe malnutrition -Continue supplements -Dietitian is following Anemia -This has normalized Hyperlipidemia -Continue home Lipitor Parkinson's disease -Continue carbidopa levodopa Chronic hypotension -Suspect related to Parkinson's -Continue midodrine GERD -Continue home famotidine History of PACs -Chronic -No intervention required CKD stage IIIb -Stable DVT prophylaxis -Continue subcu heparin CODE STATUS -DNR CCA with no intubation Patient has medically been ready for discharge since 08/12/2023 and currently awaiting pre-CERT from insurance company for discharge to [facility] facility for ongoing rehab services. Charges/Coding Visit Charges Inpatient E&M: 33868 Subs Hosp L1 09/12/23 1643 <Electronically signed by Maame Pinon DO> Cosigner Signature (if applicable): CC: ~ Signed [facility] Work Phone: 1(492) 439-189303-26-2024 Progress note Author Maame Pinon [facility] September 11, 2023 4:15pm Note Date/Time September 11, 2023 4:1 5pm [facility] Medical Records Department [address] [place] [address] Progress Note - Hospitalist 09/11/23 1610 MR#: [id number] Acct: [id number] Name: KAYLENE HAYNES LY Rep #:[id number] : 1935 88 From: Maame Pinon DO PCP: Dr. Howard Zimmerman MD Status:ADM I NO Location: [place] [id number] Reason for Visit Reason for Visit: Debility/weakness Subjective Subjective I was able to talk to her son who is more involved with her home care today. Initially her son yesterday told me that there was not a loss of consciousness however her son today reports that there was a loss of consciousness and groggy period following them finding her on toilet. Evidently her last episode was similar to this however did not last as long and she had an echocardiogram, MRI,and neuro evaluation at which time they thought she had a TIA and was placed on an aspirin. Family also reports she had an event monitor as an outpatient for 30 days that showed no abnormalities however she did not have an episode while she was on the event monitor. She had a better night last night. Objective Data Objective Data Vital Signs: Vital Signs Temp Pulse Resp BP Pulse Ox O2 Del Method 98.2 F 71 18 116/71 99 Room Air 09/11/23 14:30 09/11/23 14:30 09/11/23 14:30 09/11/23 14:30 09/11/23 14:30 09/11/23 14:30 Oxygen Delivery Method Room Air Weight: 39.916 kg Body Mass Index (BMI) 17.2 Intake & Output: Intake and Output for Last 24 Hours 09/09/23 09/10/23 09/11/23 23:59 23:59 23:59 Intake Total 3101.25 / 3101.25 440 / 440 Balance 3101.25 / 3101.25 440 / 440 Lab / Micro Data 09/11/23 06:00 09/10/23 05:55 Labs: Laboratory Results - last 24 hr 09/11/23 06:00: WBC 9.1, RBC 4.19 L, Hgb 13.1, Hct 38.6, MCV 92.1, MCH 31.3, MCHC 33.9 D, RDW Std Deviation 41.3, RDW Coeff of [place] 12.2, Plt Count 297, MPV 9.6, Immature Gran % (Auto) 0.300, Neut % (Auto) 51.1, Lymph % (Auto) 38.3, [place]% (Auto) 9.0, Eos % (Auto) 1.0, Baso % (Auto) 0.3, Absolute Neuts (auto) 4.6, Absolute Lymphs (auto) 3.47, Nucleated RBC % 0 Physical Exam Const alert and no apparent distress Constitutional Narrative: Thin, elderly, white female, sitting up in bed, son at bedside, appears comfortable, very pleasant and interactive, oriented to self and place but not time General Appearance: cooperative Orientation / Consciousness: oriented to place and confused HEENT normocephalic, head/scalp atraumatic and moist oral mucous membranes HEENT Narrative: Mallampati is 1, no thrush Resp normal respiratory effort, no retractions, no use of accessory muscles and clearto auscultation bilaterally Auscultation: Negative for rales, rhonchi or wheezes Cardio regular rate, S1 normal heart sound, S2 normal heart sound, no murmurs, no rub, no gallops and no clicks Cardio Narrative: Intermittent irregularity GI normal to inspection, nondistended, normoactive bowel sounds, soft to palpation,non-tender and non-distended Extremity no clubbing, cyanosis or edema Extremity Narrative: Decreasing muscle mass, pedal pulses and radial pulses are 2+ Skin no rashes or lesions noted General Skin Exam: no breakdown Neuro CN's II-XII intact bilaterally, moves all extremities, no focal motor deficits and no sensory deficits noted Neuro Narrative: Gait has shortened strides utilizing a wheeled walker Sensorium / Orientation: awake, alert, oriented to person and oriented to place Speech: speech normal Psych affect normal Psych Narrative: Very pleasant, interacts appropriately Assessment & Plan Assessment/Plan (1) Parkinson's disease: (2) Debility: (3) Generalized weakness: (4) Falls: (5) Leukocytosis: (6) Anemia: PLAN: Plan Falls/debility/generalized weakness/altered level of consciousness -Per further discussion with her other son it sounds like she may have been having some syncopal episodes associated with this -Had previous admission in June for similar event -Echo was unremarkable, MRI was unremarkable and neurology was consulted and felt that it may be TIA -Placed on baby aspirin and had a 30-day event monitor with no abnormalities detected -Check EEG -Neurology consult -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 along with her Parkinson's disease -PT and Occupational Therapy had recommended ongoing therapy services at discharge and plan is for discharge to TCU -Case management/social work following--> awaiting pre-CERT Leukocytosis -Resolved Intermittent delirium -Suspect related to sundowning with mild cognitive impairment at baseline -Risperdal seem to have helped with her sundowning History of severe malnutrition -Continue supplements -Dietitian is following Anemia -This has normalized Hyperlipidemia -Continue home Lipitor Parkinson's disease -Continue carbidopa levodopa Chronic hypotension -Suspect related to Parkinson's -Continue midodrine GERD -Continue home famotidine History of PACs -Chronic -No intervention required CKD stage IIIb -Stable DVT prophylaxis -Continue subcu heparin CODE STATUS -DNR CCA with no intubation Charges/Coding Visit Charges Inpatient E&M: 28137 Subs Hosp L2 09/11/23 1615 <Electronically signed by Maame Pinon DO> Cosigner Signature (if applicable): CC: ~ Signed [facility] Work Phone: 1([phone]) 476-186703-26-2024 Consult note Author Eri Interiano [facility] September 11, 2023 3:27pm Note Date/Time September 11, 2023 2:3 8pm [facility] Medical Records Department [address] [place] [address] Consultation - Neurology 09/11/23 1435 MR#: [id number] Acct: [id number] Name: KAYLENE HAYNES Rep #:[id number] : 1935 88 From: Eri Interiano MD PCP: Dr. Howard Zimmerman MD Status:ADM I NO Location: [place] [address] Assessment and Plan: Neuro Assessment/Plan KAYLENE HAYNES is a 88 F with a past medical history of Parkinsons, TIA, frequent falls, being evaluated by Teleneurology for falls/syncope. Diagnosis: Syncope: orthostatic vs micturition Plan: Agree with PT/OT assessment Orthostatic vitals, if low then recommend compression stockings, abdominal binder, increased fluid intake No changes to PD medications EEG completed, report to be uploaded I personally attended this patient and spent a total time of 53 minutes evaluating this patient including clinical assessment, review of chart, medical history imaging, and determining appropriate treatment and workup. HPI Consult Data Date of Consult: 09/11/23 HPI Narrative HPI Narrative: KAYLENE HAYNES, is a 88 F who presents with a fall. She was found on the commode leaning up against the wall per report. Presented via squad. She does recall anyprodromal symptoms. Last remembers walking into the bathroom but otherwise no clear memory of the event. She does not think she was confused afterwards, but did feel groggy and lethargic. When she presented to the ED, orthostatics were attempted but were unable to obtain standing readings. Labs with mildly elevated creatinine, otherwise unremarkable. She feels better today, almost back at baseline and ready to be discharged. EEG was completed earlier this AM. Does have history of PD, reports good response to levo/carb. No signficant side effects from the medication. [facility] Medical History (Updated 09/10/23 @ 16:[address] Maame Pinon DO) Brain TIA CKD (chronic kidney disease), stage II History of atrial myxoma Hyperlipidemia Hypertension Lymphoma Nonrheumatic mitral (valve) prolapse Nonrheumatic mitral valve regurgitation Nonrheumatic tricuspid valve regurgitation Parkinsons disease Parotid tumor Premature atrial contractions Premature ventricular contraction Home Medications multivitamin 1 tab PO DAILY vitamin 11/20/18 [History Last Taken 01/15/23] carbidopa 25 mg-levodopa 100 mg tablet 2 tab PO TID parkinsons 01/05/23 [History Last Taken 06/28/23 16:20] midodrine 5 mg tablet 5 mg PO TID blood pressure 06/28/23 [History Last Taken 06/28/23 16:20] aspirin 81 mg chewable tablet 81 mg PO BREAKFAST 1 month #30 tabs 06/29/23 [Rx Last Taken Unknown] atorvastatin 40 mg tablet 40 mg PO QHS 1 month #30 tabs 06/29/23 [Rx Last Taken Unknown] VITAL TEARS DRY EYES 09/08/23 [History Last Taken Unknown] ascorbic acid (vitamin C) 1,000 mg tablet,extended release (C Complex) 1,000 mg PO DAILY 09/08/23 [History Last Taken Unknown] cyanocobalamin (vitamin B-12) 1,000 mcg sublingual tablet 1,000 mcg sublingual DAILY 09/08/23 [History Last Taken Unknown] famotidine 40 mg tablet 40 mg PO DAILY 09/08/23 [History Last Taken Unknown] Allergy/AdvReac Type Severity Reaction Status Date / Time Penicillins Allergy Rash Verified 07/28/23 09:19 tramadol AdvReac Other Verified 07/28/23 09:19 Family History Father Heart disease CHF (congestive heart failure) Mother No problems noted. Surgical History History of laparoscopic cholecystectomy History of splenectomy Social History household members: none Smoking Status: Never smoker alcohol intake: current details: occasional substance use type: does not use Vital Signs Vital Signs Vital Signs: 09/10/23 20:20 09/10/23 20:44 09/10/23 22:00 Temperature 98.5 F Temperature Source Oral Pulse Rate 76 Pulse Strength Normal (2+) Respiratory Rate 16 Respiratory Effort Normal Respiratory Depth Normal Respiratory Pattern Normal Blood Pressure 141/96 H Blood Pressure Mean 111 Blood Pressure Source Monitor Blood Pressure Position Semi-Fowlers Blood Pressure Location Right Arm Pulse Ox 95 Oxygen Delivery Method Room Air Room Air 09/11/23 06:11 09/11/23 09:14 09/11/23 09:14 Temperature 98.9 F 97.5 F L Temperature Source Temporal Oral Pulse Rate 64 74 Pulse Strength Normal (2+) Respiratory Rate 16 16 Respiratory Effort Respiratory Depth Respiratory Pattern Blood Pressure 136/85 H 103/53 L Blood Pressure Mean 102 69 Blood Pressure Source Monitor Monitor Blood Pressure Position Semi-Fowlers Semi-Fowlers Blood Pressure Location Right Arm Left Forearm Pulse Ox 95 96 Oxygen Delivery Method Room Air Room Air 09/11/23 09:56 Temperature Temperature Source Pulse Rate Pulse Strength Respiratory Rate Respiratory Effort Normal Non-Labored Respiratory Depth Normal Respiratory Pattern Normal Blood Pressure Blood Pressure Mean Blood Pressure Source Blood Pressure Position Blood Pressure Location Pulse Ox Oxygen Delivery Method Room Air Weight Weight: 39.916 kg Body Mass Index (BMI) 17.2 EEG Results Procedure Details EEG Procedure Details: KAYLENE HAYNES is a 88 year old F with a past medical history of , who presents for evaluation of Electroencephalogram on DATE at TIME Physical Exam Eyes PERRL and EOMs intact bilaterally Resp normal respiratory effort Neuro Sensorium / Orientation: awake, alert, oriented to person, oriented to place andoriented to time Cranial Nerves: CN normal except as noted Coordination / Balance: [id number]-[id number] test normal, [id number]-hv-[id number] test normal andRomberg test negative Speech: speech normal Sensory Exam: double simultaneous stimulation for sensation normal Motor Exam: strength 5/5 throughout and muscle tone normal throughout Coordination: [id number]-[id number] test normal and owsl-en-[id number] test normal Pupil Exam: Normal Pupillary Reactivity/Response: bilateral Lab / Micro Data 09/11/23 06:00 09/10/23 05:55 Labs: Laboratory Results - last 24 hr 09/11/23 06:00: WBC 9.1, RBC 4.19 L, Hgb 13.1, Hct 38.6, MCV 92.1, MCH 31.3, MCHC 33.9 D, RDW Std Deviation 41.3, RDW Coeff of [place] 12.2, Plt Count 297, MPV 9.6, Immature Gran % (Auto) 0.300, Neut % (Auto) 51.1, Lymph % (Auto) 38.3, [place]% (Auto) 9.0, Eos % (Auto) 1.0, Baso % (Auto) 0.3, Absolute Neuts (auto) 4.6, Absolute Lymphs (auto) 3.47, Nucleated RBC % 0 Active Medications Active Medications Active Medications: Current Medications Generic Name Dose Route Start Last Admin Trade Name Freq PRN Reason Stop Dose Admin Acetaminophen 650 mg 09/08/23 14:41 09/08/23 17:28 Acetaminophen 325 Mg Tablet PO 650 mg Q6H PRN PRN Administration Pain 1-10 Or Fever >100.7 Ascorbic Acid 1,000 mg 09/12/23 10:00 Ascorbic Acid 500 Mg Tablet PO DAILY ARIA Aspirin 81 mg 09/09/23 08:00 09/11/23 09:50 Aspirin 81 Mg Tab.Chew PO 81 mg BREAKFAST ARIA Administration Atorvastatin Calcium 40 mg 09/08/23 22:00 09/10/23 20:47 Atorvastatin Calcium 40 Mg Tablet PO 40 mg QHS ARIA Administration Carbidopa/Levodopa 2 tablet 09/08/23 14:41 09/11/23 13:58 Carbidopa/Levodopa 25/100 Tablet PO 2 tablet TID ARIA Administration Cyanocobalamin 1,000 mcg 09/12/23 10:00 Cyanocobalamin 500 Mcg Tablet PO DAILY ARIA Famotidine 40 mg 09/12/23 10:00 Famotidine 20 Mg Tablet PO DAILY ARIA Heparin Sodium (Porcine) 5,000 unit 09/08/23 22:00 09/11/23 09:50 Heparin Injection (Vial) 5,000 Unit/Ml Vial SC 5,000 unit Q12 ARIA Administration Hydralazine HCl 10 mg 09/09/23 22:21 09/09/23 22:42 Hydralazine 20 Mg/Ml Vial IV 10 mg Q4H PRN PRN Administration SBP > 160 Protocol Sodium Chloride 250 mls @ 15 mls/hr 09/08/23 14:55 IV .[id number] PRN Additional IVPB Infusion Sodium Chloride 250 mls @ 15 mls/hr 09/08/23 14:55 IV .[id number] PRN Saline Flush Nutritional Formula (Lactose Free) 120 ml 09/09/23 18:00 09/11/23 13:58 Ensure Plus High Protein 120 Ml Liquid PO 120 ml 4X/DAY ARIA Administration Ondansetron HCl 4 mg 09/08/23 14:41 Ondansetron 4 Mg/2 Ml Vial IV Q8H PRN PRN NAUSEA/VOMITING Risperidone 0.25 mg 09/10/23 22:00 09/10/23 20:47 Risperidone 0.25 Mg Tablet PO 0.25 mg QHS ARIA Administration Protocol Sodium Chloride 10 - 40 ml 09/08/23 14:55 09/10/23 20:47 0.9% Saline Lock 10 Ml Syringe IV 10 ml UD PRN Administration SALINE FLUSH 09/11/23 1527 <Electronically signed by Eri Interiano MD> Cosigner Signature (if applicable): CC: Paige Martinez; Alayna Valverde; John Salmeron; Farzana Levin MD; Darcy Hernandez MD; Carlos Whipple MD; Vilma Shine MD; Dr. Le Batres MD; Dr. Karen Mckeon MD; Dr. Timothy Fortune MD; Dr. Cherie Mark MD; Dr. Isiah Kelyl MD; Dr. Jose Benson MD; Dr. Gonzalez Garza DO; Dr. Vincent Suresh DO; Dr. Elian Stroud MD; Dr. Ruy Sun MD; Dr. Pamela Kamara MD; Dr. Jonathon Rodríguez MD; Dr. Howard Zimmerman MD; Dr. Malliak Pinon MD; Ashlee Bautista MD; MD Carlos; Eri Interiano DO; Reji Reid MD; Marly Ochoa DO; Roopa Tolbert MD~ Signed [facility] Work Phone: 1(147) 594-860003-25-2024 Progress note Author Maame Pinon [facility] September 10, 2023 4:53pm Note Date/Time September 10, 2023 4:5 3pm [facility] Medical Records Department [address] [place] [address] Progress Note - Hospitalist 09/10/23 1645 MR#: [id number] Acct: [id number] Name: KAYLENE HAYNES Rep #:[id number] : 1935 88 From: Maame Pinon DO PCP: Dr. Howard Zimmerman MD Status:ADM I NO Location: NC3 IP989-3 Reason for Visit Reason for Visit: Debility/weakness Subjective Subjective Patient is a 88-year-old white female who presented to emergency department [facility] on 09/07/2022 after fall. She was found in her bathroom sitting on her commode leaning against the wall and was found by her family. She has a historyof Parkinson disease and has intermittent falls. She has some caregivers duringthe day but none at night. Upon presentation she was found to have an elevated white count and a serum creatinine of 1.23 with a BUN of 23 and unremarkable vital signs. There was no signs of injury and her UA was inconsistent with infection. Family reports that she has slowly becoming more debilitated and also having some mild memory issues. She has had some agitation at night for which we started risperidone scheduled. Physical and Occupational Therapy evaluated the patient and have recommended ongoing therapy services. TCU has been chosen and pre-CERT is pending. Objective Data Objective Data Vital Signs: Vital Signs Temp Pulse Resp BP Pulse Ox O2 Del Method 97.9 F 82 16 128/78 H 95 Room Air 09/10/23 14:11 09/10/23 14:11 09/10/23 14:11 09/10/23 14:11 09/10/23 14:11 09/10/23 14:11 Oxygen Delivery Method Room Air Weight: 39.916 kg Body Mass Index (BMI) 17.2 Intake & Output: Intake and Output for Last 24 Hours 09/08/23 09/09/23 09/10/23 23:59 23:59 23:59 Intake Total 1050 / 1050 3101.25 / 3101.25 240 / 240 Balance 1050 / 1050 3101.25 / 3101.25 240 / 240 Lab / Micro Data 09/10/23 05:55 09/10/23 05:55 Labs: Laboratory Results - last 24 hr 09/10/23 05:55: WBC 15.6 H, RBC 3.71 L, Hgb 10.9 L, Hct 34.3 L, MCV 92.5, MCH 29.4, MCHC 31.8 L, RDW Std Deviation 47.1 H, RDW Coeff of [place] 13.8, Plt Count 301, MPV 10.0, Immature Gran % (Auto) 0.400, Neut % (Auto) 37.1 L, Lymph % (Auto) 48.5 H, [place] % (Auto) 9.1, Eos % (Auto) 2.8, Baso % (Auto) 2.1 H, Absolute Neuts (auto) 5.8, Absolute Lymphs (auto) 7.56 H, Nucleated RBC % 0, Differential Comment SCANNED, Sodium 140, Potassium 3.8, Chloride 109 H, Carbon Dioxide 27.0, Anion Gap 4 L, BUN 24 H, Creatinine 0.90, Estim Creat Clear Calc 27.75, Est GFR (MDRD) Af Amer 76, Est GFR (MDRD) Non-Af 63, BUN/Creatinine Ratio26.5 H, Glucose 95, Calcium 8.7, Phosphorus 3.1, Magnesium 2.1, Total Bilirubin 0.50, AST 38 H, ALT 11 L, Alkaline Phosphatase 104, Total Protein 6.0 L, Albumin2.9 L, Globulin 3.1, Albumin/Globulin Ratio 0.9 Physical Exam Const alert and no apparent distress Constitutional Narrative: Thin, elderly, white female, walking around with therapy services, appears comfortable, very pleasant and interactive HEENT head/scalp atraumatic and moist oral mucous membranes Head and Scalp: normocephalic Resp normal respiratory effort, no retractions and no use of accessory muscles Auscultation: Negative for rales, rhonchi or wheezes Cardio regular rate, regular rhythm, S1 normal heart sound, S2 normal heart sound, no murmurs, no rub, no gallops and no clicks GI normal to inspection, nondistended, normoactive bowel sounds, soft to palpation and non-tender Extremity no clubbing, cyanosis or edema Extremity Narrative: Decreasing muscle mass, pedal pulses and radial pulses are 2+ Neuro moves all extremities and no focal motor deficits Neuro Narrative: Gait has shortened strides utilizing a wheeled walker Sensorium / Orientation: awake, alert and oriented to person Speech: speech normal Psych affect normal Psych Narrative: Very pleasant, interacts appropriately Assessment & Plan Assessment/Plan (1) Parkinson's disease: (2) Debility: (3) Generalized weakness: (4) Falls: (5) Leukocytosis: (6) Anemia: PLAN: Plan Falls/debility/generalized weakness -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 along with her Parkinson's disease -PT and Occupational Therapy had recommended ongoing therapy services at discharge and plan is for discharge to TCU -Case management/social work following Leukocytosis -Patient has chronic elevation -Seems to be at baseline -Continued outpatient follow-up Intermittent delirium -Suspect related to sundowning with mild cognitive impairment at baseline -Start scheduled low-dose risperidone tonight and will likely continue at discharge History of severe malnutrition -Continue supplements Anemia -Slight drop from baseline -May be dilutional -Continue to monitor -No signs of active bleeding Hyperlipidemia -Continue home Lipitor Parkinson's disease -Continue carbidopa levodopa Chronic hypotension -Suspect related to Parkinson's -Continue midodrine GERD -Continue home famotidine History of PACs -Chronic -No intervention required CKD stage IIIb -Stable DVT prophylaxis -Continue subcu heparin CODE STATUS -DNR CCA with no intubation Charges/Coding Visit Charges Inpatient E&M: 70492 Subs Hosp L2 09/10/23 1650 <Electronically signed by Maame Pinon DO> Cosigner Signature (if applicable): CC: ~ Signed [facility] Work Phone: 1(942) 432-885803-25-2024 Progress note Author Daisy Mack [facility] September 09, 2023 11:52pm Note Date/Time September 09, 2023 11: 52pm [facility] Medical Records Department [address] [place] [address] Progress Note - Hospitalist 09/09/23 2352 MR#: [id number] Acct: [id number] Name: KAYLENE HAYNES Rep #:[id number] : 1935 88 From: Daisy Mack MD PCP: Dr. Howard iZmmerman MD Status:ADM I NO Location: NC3 VW055-3 Hospitalist Note Patient with mild agitation, attempting to get out of bed, underlying Parkinson's disease with dementia, will dose with low dose seroquel x 1 and if assists may consider q HS if needed/appropriate. 09/09/232351 <Electronically signed by Daisy Mack MD> Cosigner Signature (if applicable): CC: ~ Signed [facility] Work Phone: 1(805) 252-451103-24-2024 Progress note Author Gnozalez Garza [facility] September 09, 2023 4:20pm Note Date/Time September 09, 2023 4:1 4pm [facility] Medical Records Department [address] [place] [address] Progress Note - Hospitalist 09/09/23 1611 MR#: [id number] Acct: [id number] Name: KAYLENE HAYNES Rep #:[id number] : 1935 88 From: Gonzalez Garza DO PCP: Dr. Howard Zimmerman MD Status:ADM I NO Location: MS3 VD947-3 Reason for Visit Reason for Visit: Diagnoses Parkinson's disease (09/08/23) Subjective Subjective Patient was seen and examined today, I talked to her briefly about going to an extended care facility for short-term rehab services, she states she vaguely remembers the conversation. Patient is alert and answers simple questions appropriately. Patient's urinalysis yesterday was unremarkable. Patient's white blood cell count today was 18.7-patient has a history of lymphoma in the past, I am not sure if this elevated white count could be secondary to lymphoma. Objective Data Objective Data Vital Signs: Vital Signs Temp Pulse Resp BP Pulse Ox O2 Del Method 97.9 F 79 16 173/109 H 95 Room Air 09/09/23 15:26 09/09/23 15:26 09/09/23 15:26 09/09/23 15:26 09/09/23 15:26 09/09/23 15:26 Oxygen Delivery Method Room Air Weight: 39.916 kg Body Mass Index (BMI) 17.2 Intake & Output: Intake and Output for Last 24 Hours 09/07/23 09/08/23 09/09/23 23:59 23:59 23:59 Intake Total 1050 / 1050 1400 / 1400 Balance 1050 / 1050 1400 / 1400 Lab / Micro Data 09/09/23 06:48 09/08/23 10:12 Labs: Laboratory Results - last 24 hr 09/09/23 02:15: Urine Color Yellow, Urine Clarity Clear, Urine pH 6.5, Ur Specific [place] 1.020, Urine Protein 15 H, Urine Glucose (UA) Normal, Urine Ketones 5 H, Urine Occult Blood Negative, Urine Nitrite Negative, Urine Bilirubin Negative, Urine Urobilinogen Normal, Ur Leukocyte Esterase 25 H, UrineRBC 0 SEEN, Urine WBC 0-5 SEEN, Ur Squamous Epith Cells 0 SEEN, Ur Transition Epith Cell 0 SEEN, Ur Renal Epithelial Cell 0 SEEN, Urine Bacteria 1+, Urine Mucus 0 SEEN 09/09/23 06:48: WBC 18.7 H, RBC 3.79 L, Hgb 11.2 L, Hct 35.2 L, MCV 92.9, MCH 29.6, MCHC 31.8 L, RDW Std Deviation 47.3 H, RDW Coeff of [place] 13.8, Plt Count 291, MPV 10.0, Immature Gran % (Auto) 0.400, Neut % (Auto) 53.3, Lymph % (Auto) 36.3, [place] % (Auto) 6.9, Eos % (Auto) 1.1, Baso % (Auto) 2.0 H, Absolute Neuts (auto) 10.0 H, Absolute Lymphs (auto) 6.78 H, Nucleated RBC % 0 Physical Exam Narrative alert, oriented x3 and no apparent distress Constitutional Narrative: Patient appears cachectic, she is extremely hard of hearing General Appearance: cooperative, well kempt and well developed Orientation / Consciousness: awake, oriented to person and oriented to place HEENT normocephalic, head/scalp atraumatic and moist oral mucous membranes HEENT Narrative: Extremely hard of hearing, patient answers simple questions appropriately, againshe does not remember my entire conversation yesterday about her going to a rehab facility Eyes PERRL, EOMs intact bilaterally and conjunctivae normal Neck supple, no JVD, thyroid normal and no carotid bruits General: trachea midline Resp normal respiratory effort, no retractions, no use of accessory muscles and clearto auscultation bilaterally Auscultation: Negative for rales, rhonchi or wheezes Cardio S1 normal heart sound, S2 normal heart sound, no murmurs, no rub and no gallops Cardio Narrative: Heart rate and rhythm is irregular GI normal to inspection, nondistended, normoactive bowel sounds, soft to palpation,non-tender and non-distended Extremity no clubbing, cyanosis or edema Skin no rashes or lesions noted General Skin Exam: no breakdown Neuro CN's II-XII intact bilaterally, moves all extremities, no focal motor deficits and no sensory deficits noted Neuro Narrative: Patient only says a few words, she does not carry on a complete conversation. Sensorium / Orientation: awake, alert, oriented to person and oriented to place Psych Psych Narrative: Patient has flat affect Assessment & Plan Assessment/Plan (1) Parkinson's disease: PLAN: Plan 1. Acute debility secondary to advanced age and Parkinson's disease-patient will continue to see PT and OT, she will need temporary placement in a penitentiary facility #2 Parkinson's disease-complicates care, medical course, recovery, and prognosis, patient will remain on her home medication #3 hyperlipidemia-patient is on Lipitor #4 cardiac arrhythmia-patient has a history of premature atrial contractions, her EKG today shows PACs. #5 chronic kidney disease-stage IIIb, complicates care, medical course, recovery, and prognosis #6 leukocytosis-I confirmed with the patient's son that she has a history of lymphoma and sees Dr. Brooks, this smear does not predominantly have lymphocytes but in reviewing her lab records here it appears that her white count is elevated quite frequently. I have elected not to order any more CBCs on her at this time. Total clinical time spent by myself addressing the patient's medical issues, reviewing all of her data, and collaborating with patient's care team: 25 minutes Charges/Coding Visit Charges Inpatient E&M: 38643 Subs Hosp L1 09/09/23 1620 <Electronically signed by Gonzalez Garza DO> Cosigner Signature (if applicable): CC: ~ Signed [facility] Work Phone: 1(756) 475-306203-23-2024 History and physical note Author Gonzalez Garza [facility] September 08, 2023 4:00pm Note Date/Time September 08, 2023 3:4 8pm [facility] Medical Records Department [address] [place] [address] H&P Exam - Hospitalist 09/08/23 1546 MR#: [id number] Acct: [id number] Name: KAYLENE HAYNES Rep #:[id number] : 1935 88 From: Gonzalez Garza DO PCP: Dr. Howard Zimmerman MD Status:ADM I NO Location: MS3 RN563-0 HPI - General General Date of Admission: 09/08/23 Date of Service: 09/08/23 Chief Complaint: Debility, weakness HPI Narrative KAYLENE HAYNES, is a 88 F who presents to the emergency room at [facility] after being brought in by squad, she was found in her bathroom sitting on her commode leaning up against the wall according to her family. Patient hasa history of Parkinson's disease and has caregivers during the day but no caregivers at night. It is unknown how long the patient was actually sitting on the commode. Family is present in the room during my examination, patient only says a few words and is also hard of hearing. Labs obtained in the emergency room showed an elevated white blood cell count at14.5, creatinine was 1.23 and BUN was 23. At the time of my dictation, her urinalysis is pending. [facility], she will be seen by PT and OT, she will need temporary placement in a penitentiary facility, I talked to the family today they prefer TCU if possible. I talked with social services aide about it also. [facility] Medical History CKD (chronic kidney disease), stage II History of atrial myxoma Hyperlipidemia Hypertension Lymphoma Nonrheumatic mitral (valve) prolapse Nonrheumatic mitral valve regurgitation Nonrheumatic tricuspid valve regurgitation Parkinsons disease Parotid tumor Premature atrial contractions Premature ventricular contraction Home Medications multivitamin 1 tab PO DAILY vitamin 11/20/18 [History Last Taken 01/15/23] carbidopa 25 mg-levodopa 100 mg tablet 2 tab PO TID parkinsons 01/05/23 [History Last Taken 06/28/23 16:20] midodrine 5 mg tablet 5 mg PO TID blood pressure 06/28/23 [History Last Taken 06/28/23 16:20] aspirin 81 mg chewable tablet 81 mg PO BREAKFAST 1 month #30 tabs 06/29/23 [Rx Last Taken Unknown] atorvastatin 40 mg tablet 40 mg PO QHS 1 month #30 tabs 06/29/23 [Rx Last Taken Unknown] VITAL TEARS DRY EYES 09/08/23 [History Last Taken Unknown] ascorbic acid (vitamin C) 1,000 mg tablet,extended release (C Complex) 1,000 mg PO DAILY 09/08/23 [History Last Taken Unknown] cyanocobalamin (vitamin B-12) 1,000 mcg sublingual tablet 1,000 mcg sublingual DAILY 09/08/23 [History Last Taken Unknown] famotidine 40 mg tablet 40 mg PO DAILY 09/08/23 [History Last Taken Unknown] Allergy/AdvReac Type Severity Reaction Status Date / Time Penicillins Allergy Rash Verified 07/28/23 09:19 tramadol AdvReac Other Verified 07/28/23 09:19 Family History Father Heart disease CHF (congestive heart failure) Mother No problems noted. Surgical History History of laparoscopic cholecystectomy History of splenectomy Social History household members: none Smoking Status: Never smoker alcohol intake: current details: occasional substance use type: does not use ROS ROS Narrative Review of systems was unobtainable due to hearing deficit and mild cognitive impairment due to Parkinson's disease Vital Signs Vital Signs Vital Signs: 09/08/23 09:36 09/08/23 09:35 09/08/23 09:47 Temperature 96.9 F L Temperature Source Temporal Pulse Rate 72 Pulse Rate [Standing (for 1 minute prior to obtaining)] Respiratory Rate 16 19 H Respiratory Pattern Blood Pressure 156/99 H Blood Pressure [Lying] Blood Pressure [Sitting (for 1 minute prior to obtaining)] Blood Pressure Mean 118 Blood Pressure Mean [Lying] Blood Pressure Mean [Sitting (for 1 minute prior to obtaining)] Pulse Ox 98 Oxygen Delivery Method Room Air 09/08/23 10:14 09/08/23 10:17 09/08/23 10:48 Temperature Temperature Source Pulse Rate Pulse Rate [Standing (for 1 minute prior to obtaining)] 89 Respiratory Rate Respiratory Pattern Normal Blood Pressure Blood Pressure [Lying] 154/97 H Blood Pressure [Sitting (for 1 minute prior to obtaining)] 133/100 H Blood Pressure Mean Blood Pressure Mean [Lying] 116 Blood Pressure Mean [Sitting (for 1 minute prior to obtaining)] 111 Pulse Ox 97 Oxygen Delivery Method Room Air 09/08/23 11:35 09/08/23 13:00 09/08/23 13:40 Temperature 98.4 F Temperature Source Pulse Rate 71 78 83 Pulse Rate [Standing (for 1 minute prior to obtaining)] Respiratory Rate 12 12 12 Respiratory Pattern Blood Pressure 167/95 H 159/105 H 146/98 H Blood Pressure [Lying] Blood Pressure [Sitting (for 1 minute prior to obtaining)] Blood Pressure Mean 119 123 114 Blood Pressure Mean [Lying] Blood Pressure Mean [Sitting (for 1 minute prior to obtaining)] Pulse Ox 96 95 95 Oxygen Delivery Method Room Air Room Air Weight Weight: 39.916 kg Body Mass Index (BMI) 17.2 Physical Exam Const alert, oriented x3 and no apparent distress Constitutional Narrative: Patient appears cachectic, she is extremely hard of hearing General Appearance: cooperative, well kempt and well developed Orientation / Consciousness: awake, oriented to person and oriented to place HEENT normocephalic, head/scalp atraumatic and moist oral mucous membranes HEENT Narrative: Extremely hard of hearing Eyes PERRL, EOMs intact bilaterally and conjunctivae normal Neck supple, no JVD, thyroid normal and no carotid bruits General: trachea midline Resp normal respiratory effort, no retractions, no use of accessory muscles and clearto auscultation bilaterally Auscultation: Negative for rales, rhonchi or wheezes Cardio S1 normal heart sound, S2 normal heart sound, no murmurs, no rub and no gallops Cardio Narrative: Heart rate and rhythm is irregular GI normal to inspection, nondistended, normoactive bowel sounds, soft to palpation,non-tender and non-distended Extremity no clubbing, cyanosis or edema Skin no rashes or lesions noted General Skin Exam: no breakdown Neuro CN's II-XII intact bilaterally, moves all extremities, no focal motor deficits and no sensory deficits noted Neuro Narrative: Patient only says a few words, she does not carry on a complete conversation. Sensorium / Orientation: awake, alert, oriented to person and oriented to place Psych Psych Narrative: Patient has flat affect Results Lab / Micro Data 09/08/23 10:12 09/08/23 10:12 Labs: Laboratory Results - last 24 hr 09/08/23 10:12: WBC 14.5 H, RBC 4.34, Hgb 12.8, Hct 40.8, MCV 94.0, MCH 29.5, MCHC 31.4 L, RDW Std Deviation 46.9 H, RDW Coeff of [place] 13.5, Plt Count 329, MPV9.7, Immature Gran % (Auto) 0.400, Neut % (Auto) 51.3, Lymph % (Auto) 35.9, [place]% (Auto) 7.5, Eos % (Auto) 2.5, Baso % (Auto) 2.4 H, Absolute Neuts (auto) 7.5, Absolute Lymphs (auto) 5.22 H, Nucleated RBC % 0, Differential Comment SCANNED, Sodium 139, Potassium 4.4, Chloride 106, Carbon Dioxide 26.0, Anion Gap 7, BUN 23 H, Creatinine 1.23 H, Estim Creat Clear Calc 21.72, Est GFR (MDRD) Af Amer 53L, Est GFR (MDRD) Non-Af 44 L, BUN/Creatinine Ratio 18.7, Glucose 123 H, Calcium9.3, Total Creatine Kinase 65, Troponin I High Sens 7 Imaging Radiology Impression Brain CT 09/08/23 10:21 IMPRESSION: No acute intracranial process identified. Chronic involutional and white matter changes. Electronically Signed: Ree Albright MD at 11:18 EDT , Cervical Spine CT 09/08/23 10:23 IMPRESSION: No evidence for acute fracture or dislocation in the cervical spine. Multilevel degenerative change. Electronically Signed: Ree Albright MD at 11:26 EDT , Chest X-Ray 09/08/23 10:30 IMPRESSION: Bibasilar opacities, which may be infectious or inflammatory. Recommend follow-up to resolution. Electronically Signed: Ree Albright MD at 11:15 EDT , Hip/Pelvis X-Ray 09/08/23 11:00 IMPRESSION: No acute displaced fracture or dislocation identified. Electronically Signed: Ree Albright MD at 11:27 EDT , Assessment & Plan Assessment/Plan (1) Parkinson's disease: PLAN: Plan 1. Acute debility secondary to advanced age and Parkinson's disease-patient wasplaced in observation [facility] on [facility] 3, she will be seen by PT and OT, she will need temporary placement in a penitentiary facility for short-term rehabservices. Nursing states that the patient is a DNR CC arrest no intubation. #2 Parkinson's disease-complicates care, medical course, recovery, and prognosis, patient will remain on her home medication #3 hyperlipidemia-patient is on Lipitor #4 cardiac arrhythmia-patient has a history of premature atrial contractions, her EKG today shows PACs. #5 chronic kidney disease-stage IIIb, complicates care, medical course, recovery, and prognosis Total clinical time spent by myself addressing the patient's medical issues, reviewing all of her data, and collaborating with patient's care team: 55 minutes Charges/Coding Visit Charges Inpatient E&M: 07813 Init Hosp L2 09/08/23 1600 <Electronically signed by Gonzalez Garza DO> Cosigner Signature (if applicable): CC: Dr. Gonzalez Garza DO; Dr. Howard Zimmerman MD~ Signed [facility] Work Phone: 1(884) 555-671403-23-2024 Discharge summary Author Germán Benson [facility] September 08, 2023 1:40pm Note Date/Time September 08, 2023 10: [address] [place] [address] Medical Records Department [address] [place] [address] Emergency Department Summary 09/08/23 MR#: [id number] Acct: [id number] Name: KAYLENE HAYNES Rep #:[id number] : 1935 88 From: Germán Benson DO PCP: Dr. Howard Zimmerman MD Status:ADM I NO Location: [address] History of Present Illness Chief Complaint: Syncope Narrative Narrative: 88-year-old female with history of Parkinson's disease and TIA presenting with altered mental status. Apparently she was found unconscious on the commode today. She has hand Rails and was leaning on this and unresponsive. She was found by her son. He states that she has home health care but does not have anynighttime health care and has about 12 hours of lapse of care overnight. He does state that she has not been able to talk most mornings over the last several months. Recently seen for TIA. They believe that the nonverbal aspect is due to Parkinson's disease. She does talk intermittently. This son states she fell a couple days ago and hurt her right hip. They state that she does bruise pretty easily and they do not see signs of trauma. They are unsure if she hit her head. [facility] Medical History CKD (chronic kidney disease), stage II History of atrial myxoma Hyperlipidemia Hypertension Lymphoma Nonrheumatic mitral (valve) prolapse Nonrheumatic mitral valve regurgitation Nonrheumatic tricuspid valve regurgitation Parkinsons disease Parotid tumor Premature atrial contractions Premature ventricular contraction Home Medications multivitamin 1 tab PO DAILY vitamin 11/20/18 [History Last Taken 01/15/23] carbidopa 25 mg-levodopa 100 mg tablet 2 tab PO TID parkinsons 01/05/23 [History Last Taken 06/28/23 16:20] midodrine 5 mg tablet 5 mg PO TID blood pressure 06/28/23 [History Last Taken 06/28/23 16:20] aspirin 81 mg chewable tablet 81 mg PO BREAKFAST 1 month #30 tabs 06/29/23 [Rx Last Taken Unknown] atorvastatin 40 mg tablet 40 mg PO QHS 1 month #30 tabs 06/29/23 [Rx Last Taken Unknown] VITAL TEARS DRY EYES 09/08/23 [History Last Taken Unknown] ascorbic acid (vitamin C) 1,000 mg tablet,extended release (C Complex) 1,000 mg PO DAILY 09/08/23 [History Last Taken Unknown] cyanocobalamin (vitamin B-12) 1,000 mcg sublingual tablet 1,000 mcg sublingual DAILY 09/08/23 [History Last Taken Unknown] famotidine 40 mg tablet 40 mg PO DAILY 09/08/23 [History Last Taken Unknown] Allergy/AdvReac Type Severity Reaction Status Date / Time Penicillins Allergy Rash Verified 07/28/23 09:19 tramadol AdvReac Other Verified 07/28/23 09:19 Family History Father Heart disease CHF (congestive heart failure) Mother No problems noted. Surgical History History of laparoscopic cholecystectomy History of splenectomy Social History household members: none Smoking Status: Never smoker alcohol intake: current details: occasional substance use type: does not use EXAM Physical Exam Const Vital Signs: 09/08/23 09:36 09/08/23 09:35 09/08/23 09:47 Temperature 96.9 F L Temperature Source Temporal Pulse Rate 72 Pulse Rate [Standing (for 1 minute prior to obtaining)] Respiratory Rate 16 19 H Respiratory Pattern Blood Pressure 156/99 H Blood Pressure [Lying] Blood Pressure [Sitting (for 1 minute prior to obtaining)] Blood Pressure Mean 118 Blood Pressure Mean [Lying] Blood Pressure Mean [Sitting (for 1 minute prior to obtaining)] Pulse Ox 98 Oxygen Delivery Method Room Air 09/08/23 10:14 09/08/23 10:17 09/08/23 10:48 Temperature Temperature Source Pulse Rate Pulse Rate [Standing (for 1 minute prior to obtaining)] 89 Respiratory Rate Respiratory Pattern Normal Blood Pressure Blood Pressure [Lying] 154/97 H Blood Pressure [Sitting (for 1 minute prior to obtaining)] 133/100 H Blood Pressure Mean Blood Pressure Mean [Lying] 116 Blood Pressure Mean [Sitting (for 1 minute prior to obtaining)] 111 Pulse Ox 97 Oxygen Delivery Method Room Air 09/08/23 11:35 09/08/23 13:00 Temperature Temperature Source Pulse Rate 71 78 Pulse Rate [Standing (for 1 minute prior to obtaining)] Respiratory Rate 12 12 Respiratory Pattern Blood Pressure 167/95 H 159/105 H Blood Pressure [Lying] Blood Pressure [Sitting (for 1 minute prior to obtaining)] Blood Pressure Mean 119 123 Blood Pressure Mean [Lying] Blood Pressure Mean [Sitting (for 1 minute prior to obtaining)] Pulse Ox 96 95 Oxygen Delivery Method Room Air Room Air MDM MDM MDM Narrative Medical decision making narrative: Patient presenting after found unresponsive on toilet. Per son patient has had worsening in functional status and has home health care most of the day except for at nighttime. Patient has had a couple of falls at home and has history of right hip contusion a few days ago. It is unclear if she hit her head but she has not any evidence of trauma. Patient is unable to speak today which the son states is baseline for her and she has not seek most mornings and sometimes in speak at all. Has a history of Parkinson's disease and TIA. On examination sheis able to move all 4 extremities. She does not appear to have any tenderness. Will see evidence of any head trauma. Given that the patient is altered we willobtain a CT brain to rule intracranial hemorrhage or other acute abnormality. Patient cannot be cleared by Nexus criteria so we will obtain a CT of the cervical spine as well. CBC will be obtained to assess white blood cell count, hemoglobin, platelets. BMP to assess renal function, electrolytes, glucose. High-sensitivity troponin EKG to assess for ischemia/dysrhythmia. CPK to assessfor rhabdomyolysis. CBC shows leukocytosis of 14.5 however this is her baseline. Hemoglobin 12.8. Platelets are normal 329. Renal function is near baseline at 1.23. Electrolytes normal. High-sensitivity troponin is 7. CPK is65. EKG on my interpretation shows a normal sinus rhythm with a ventricular rate of 72 bpm without sign of ischemic change. Right hip x-ray remained normal difficulty urine right hip fracture and is negative. Radiology interprets this and agrees. CT brain and cervical spine are negative. Chest x-ray my interpretation shows no acute cardiopulmonary process. Radiology interprets this is bibasilar opacities versus infiltrates versus inflammation. Patient is not hypoxic, tachypneic. She is afebrile. Family history discussed with both her son and daughter at length that she would not benefit from inpatient care given she cannot ambulate and she has 12 hours at night where she has not been observed and does not have healthcare. Son was adamant that he wanted to try toget her home and after we try to get the patient up she could not ambulate or support her own weight. At this point nursing staff came to me and stated that the patient was to be admitted and her son. I discussed with the hospitalist. Impression: 1. Debility 2. Falls 3. Right hip contusion sign 4. Closed head injury Lab Data Labs: Laboratory Results - last 24 hr 09/08/23 10:12 WBC 14.5 H RBC 4.34 Hgb 12.8 Hct 40.8 MCV 94.0 MCH 29.5 MCHC 31.4 L RDW Std Deviation 46.9 H RDW Coeff of [place] 13.5 Plt Count 329 MPV 9.7 Immature Gran % (Auto) 0.400 Neut % (Auto) 51.3 Lymph % (Auto) 35.9 [place] % (Auto) 7.5 Eos % (Auto) 2.5 Baso % (Auto) 2.4 H Absolute Neuts (auto) 7.5 Absolute Lymphs (auto) 5.22 H Nucleated RBC % 0 Differential Comment SCANNED Sodium 139 Potassium 4.4 Chloride 106 Carbon Dioxide 26.0 Anion Gap 7 BUN 23 H Creatinine 1.23 H Estim Creat Clear Calc 21.72 Est GFR (MDRD) Af Amer 53 L Est GFR (MDRD) Non-Af 44 L BUN/Creatinine Ratio 18.7 Glucose 123 H Calcium 9.3 Total Creatine Kinase 65 Troponin I High Sens 7 Radiography Diagnostic Testing: Clinical Impression(s) from Imaging Studies Brain CT 09/08/23 10:21 IMPRESSION: No acute intracranial process identified. Chronic involutional and white matter changes. Electronically Signed: Ree Albright MD at 11:18 EDT , Cervical Spine CT 09/08/23 10:23 IMPRESSION: No evidence for acute fracture or dislocation in the cervical spine. Multilevel degenerative change. Electronically Signed: Ree Albright MD at 11:26 EDT , Chest X-Ray 09/08/23 10:30 IMPRESSION: Bibasilar opacities, which may be infectious or inflammatory. Recommend follow-up to resolution. Electronically Signed: Ree Albright MD at 11:15 EDT , Hip/Pelvis X-Ray 09/08/23 11:00 IMPRESSION: No acute displaced fracture or dislocation identified. Electronically Signed: Ree Albright MD at 11:27 EDT , Discharge Plan Triage Chief Complaint: Syncope ED Provider: Germán Benson Dx/Rx/DC Orders Primary Care Provider: Howard Zimmerman Chi Disposition Disposition: Home, Self Care What to do if you have Problems For any increased pain, shortness of breath, bleeding, nausea or vomiting, chestpain, or any unexpected problems, contact your Primary Care Provider. Call [facility] ([phone]) or report to the closest Emergency Room. Call 911 if necessary. 09/08/23 1340 <Electronically signed by Germán Benson DO> Cosigner Signature (if applicable): CC: Dr. Howard Zimmerman MD ~ Signed [facility] Work Phone: 1(838) 292-726203-23-2024 Discharge summary Author Germán Benson [facility] September 08, 2023 1:40pm Note Date/Time September 08, 2023 10: 23am [facility] Medical Records Department [address] [place] [address] Emergency Department Summary 09/08/23 MR#: [id number] Acct: [id number] Name: IVYKAYLENE LY Rep #:[id number] : 1935 88 From: Germán Benson DO PCP: Dr. Howard Zimmerman MD Status:ADM I NO Location: MS3 JW840-3 [facility] History of Present Illness Chief Complaint: Syncope Narrative Narrative: 88-year-old female with history of Parkinson's disease and TIA presenting with altered mental status. Apparently she was found unconscious on the commode today. She has hand Rails and was leaning on this and unresponsive. She was found by her son. He states that she has home health care but does not have anynighttime health care and has about 12 hours of lapse of care overnight. He does state that she has not been able to talk most mornings over the last several months. Recently seen for TIA. They believe that the nonverbal aspect is due to Parkinson's disease. She does talk intermittently. This son states she fell a couple days ago and hurt her right hip. They state that she does bruise pretty easily and they do not see signs of trauma. They are unsure if she hit her head. [facility] Medical History CKD (chronic kidney disease), stage II History of atrial myxoma Hyperlipidemia Hypertension Lymphoma Nonrheumatic mitral (valve) prolapse Nonrheumatic mitral valve regurgitation Nonrheumatic tricuspid valve regurgitation Parkinsons disease Parotid tumor Premature atrial contractions Premature ventricular contraction Home Medications multivitamin 1 tab PO DAILY vitamin 11/20/18 [History Last Taken 01/15/23] carbidopa 25 mg-levodopa 100 mg tablet 2 tab PO TID parkinsons 01/05/23 [History Last Taken 06/28/23 16:20] midodrine 5 mg tablet 5 mg PO TID blood pressure 06/28/23 [History Last Taken 06/28/23 16:20] aspirin 81 mg chewable tablet 81 mg PO BREAKFAST 1 month #30 tabs 06/29/23 [Rx Last Taken Unknown] atorvastatin 40 mg tablet 40 mg PO QHS 1 month #30 tabs 06/29/23 [Rx Last Taken Unknown] VITAL TEARS DRY EYES 09/08/23 [History Last Taken Unknown] ascorbic acid (vitamin C) 1,000 mg tablet,extended release (C Complex) 1,000 mg PO DAILY 09/08/23 [History Last Taken Unknown] cyanocobalamin (vitamin B-12) 1,000 mcg sublingual tablet 1,000 mcg sublingual DAILY 09/08/23 [History Last Taken Unknown] famotidine 40 mg tablet 40 mg PO DAILY 09/08/23 [History Last Taken Unknown] Allergy/AdvReac Type Severity Reaction Status Date / Time Penicillins Allergy Rash Verified 07/28/23 09:19 tramadol AdvReac Other Verified 07/28/23 09:19 Family History Father Heart disease CHF (congestive heart failure) Mother No problems noted. Surgical History History of laparoscopic cholecystectomy History of splenectomy Social History household members: none Smoking Status: Never smoker alcohol intake: current details: occasional substance use type: does not use EXAM Physical Exam Const Vital Signs: 09/08/23 09:36 09/08/23 09:35 09/08/23 09:47 Temperature 96.9 F L Temperature Source Temporal Pulse Rate 72 Pulse Rate [Standing (for 1 minute prior to obtaining)] Respiratory Rate 16 19 H Respiratory Pattern Blood Pressure 156/99 H Blood Pressure [Lying] Blood Pressure [Sitting (for 1 minute prior to obtaining)] Blood Pressure Mean 118 Blood Pressure Mean [Lying] Blood Pressure Mean [Sitting (for 1 minute prior to obtaining)] Pulse Ox 98 Oxygen Delivery Method Room Air 09/08/23 10:14 09/08/23 10:17 09/08/23 10:48 Temperature Temperature Source Pulse Rate Pulse Rate [Standing (for 1 minute prior to obtaining)] 89 Respiratory Rate Respiratory Pattern Normal Blood Pressure Blood Pressure [Lying] 154/97 H Blood Pressure [Sitting (for 1 minute prior to obtaining)] 133/100 H Blood Pressure Mean Blood Pressure Mean [Lying] 116 Blood Pressure Mean [Sitting (for 1 minute prior to obtaining)] 111 Pulse Ox 97 Oxygen Delivery Method Room Air 09/08/23 11:35 09/08/23 13:00 Temperature Temperature Source Pulse Rate 71 78 Pulse Rate [Standing (for 1 minute prior to obtaining)] Respiratory Rate 12 12 Respiratory Pattern Blood Pressure 167/95 H 159/105 H Blood Pressure [Lying] Blood Pressure [Sitting (for 1 minute prior to obtaining)] Blood Pressure Mean 119 123 Blood Pressure Mean [Lying] Blood Pressure Mean [Sitting (for 1 minute prior to obtaining)] Pulse Ox 96 95 Oxygen Delivery Method Room Air Room Air MDM MDM MDM Narrative Medical decision making narrative: Patient presenting after found unresponsive on toilet. Per son patient has had worsening in functional status and has home health care most of the day except for at nighttime. Patient has had a couple of falls at home and has history of right hip contusion a few days ago. It is unclear if she hit her head but she has not any evidence of trauma. Patient is unable to speak today which the son states is baseline for her and she has not seek most mornings and sometimes in speak at all. Has a history of Parkinson's disease and TIA. On examination sheis able to move all 4 extremities. She does not appear to have any tenderness. Will see evidence of any head trauma. Given that the patient is altered we willobtain a CT brain to rule intracranial hemorrhage or other acute abnormality. Patient cannot be cleared by Nexus criteria so we will obtain a CT of the cervical spine as well. CBC will be obtained to assess white blood cell count, hemoglobin, platelets. BMP to assess renal function, electrolytes, glucose. High-sensitivity troponin EKG to assess for ischemia/dysrhythmia. CPK to assessfor rhabdomyolysis. CBC shows leukocytosis of 14.5 however this is her baseline. Hemoglobin 12.8. Platelets are normal 329. Renal function is near baseline at 1.23. Electrolytes normal. High-sensitivity troponin is 7. CPK is65. EKG on my interpretation shows a normal sinus rhythm with a ventricular rate of 72 bpm without sign of ischemic change. Right hip x-ray remained normal difficulty urine right hip fracture and is negative. Radiology interprets this and agrees. CT brain and cervical spine are negative. Chest x-ray my interpretation shows no acute cardiopulmonary process. Radiology interprets this is bibasilar opacities versus infiltrates versus inflammation. Patient is not hypoxic, tachypneic. She is afebrile. Family history discussed with both her son and daughter at length that she would not benefit from inpatient care given she cannot ambulate and she has 12 hours at night where she has not been observed and does not have healthcare. Son was adamant that he wanted to try toget her home and after we try to get the patient up she could not ambulate or support her own weight. At this point nursing staff came to me and stated that the patient was to be admitted and her son. I discussed with the hospitalist. Impression: 1. Debility 2. Falls 3. Right hip contusion sign 4. Closed head injury Lab Data Labs: Laboratory Results - last 24 hr 09/08/23 10:12 WBC 14.5 H RBC 4.34 Hgb 12.8 Hct 40.8 MCV 94.0 MCH 29.5 MCHC 31.4 L RDW Std Deviation 46.9 H RDW Coeff of [place] 13.5 Plt Count 329 MPV 9.7 Immature Gran % (Auto) 0.400 Neut % (Auto) 51.3 Lymph % (Auto) 35.9 [place] % (Auto) 7.5 Eos % (Auto) 2.5 Baso % (Auto) 2.4 H Absolute Neuts (auto) 7.5 Absolute Lymphs (auto) 5.22 H Nucleated RBC % 0 Differential Comment SCANNED Sodium 139 Potassium 4.4 Chloride 106 Carbon Dioxide 26.0 Anion Gap 7 BUN 23 H Creatinine 1.23 H Estim Creat Clear Calc 21.72 Est GFR (MDRD) Af Amer 53 L Est GFR (MDRD) Non-Af 44 L BUN/Creatinine Ratio 18.7 Glucose 123 H Calcium 9.3 Total Creatine Kinase 65 Troponin I High Sens 7 Radiography Diagnostic Testing: Clinical Impression(s) from Imaging Studies Brain CT 09/08/23 10:21 IMPRESSION: No acute intracranial process identified. Chronic involutional and white matter changes. Electronically Signed: Ree Albright MD at 11:18 EDT , Cervical Spine CT 09/08/23 10:23 IMPRESSION: No evidence for acute fracture or dislocation in the cervical spine. Multilevel degenerative change. Electronically Signed: Ree Albright MD at 11:26 EDT , Chest X-Ray 09/08/23 10:30 IMPRESSION: Bibasilar opacities, which may be infectious or inflammatory. Recommend follow-up to resolution. Electronically Signed: Ree Albright MD at 11:15 EDT , Hip/Pelvis X-Ray 09/08/23 11:00 IMPRESSION: No acute displaced fracture or dislocation identified. Electronically Signed: Ree Albright MD at 11:27 EDT , Discharge Plan Triage Chief Complaint: Syncope ED Provider: Germán Benson Dx/Rx/DC Orders Primary Care Provider: Howard Zimmerman Chi Disposition Disposition: Home, Self Care What to do if you have Problems For any increased pain, shortness of breath, bleeding, nausea or vomiting, chestpain, or any unexpected problems, contact your Primary Care Provider. Call [facility] ([phone]) or report to the closest Emergency Room. Call 911 if necessary. 09/08/23 1340 <Electronically signed by Germán Benson DO> Cosigner Signature (if applicable): CC: Dr. Howard Zimmerman MD ~ Signed [facility] Work Phone: 1(297) 932-890403-01-2024 History of Present illness Narrative* Bart Brooks DO - 08/17/2023 10:52 AM EST Diagnosis: 1) Lymphoproliferative disorder. HPI: The patient is a 88 yo female whom I [facility] in [facility] 2006for [facility]enia following an admission for sepsis. Bone marrow biopsy demonstrated a normocellularbone marrow with no evidence of myelodysplasia, lymphoma [...] definite evidence of malignancy. 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 Received [address] [...] k/uL 6.51 (H) 6.98 (H) 6.43 (H) [place]% % 6.0 7.0 6.0 Abs [place] <0.87 k/uL 0.87 (H) 0.96 (H) 0.90 (H) Eosin% % 5.0 6.0 5.0 Abs Eosin <0.46 k/uL 0.72 (H) 0.82 (H) 0.75 (H) Baso% % 2.0 0.0 1.0 Abs Baso <0.11 k/uL 0.29 (H) 0.00 0.15 (H) Platelet Estimate Adequate Adequate Adequate Red Cell Morph Reviewed: see results of individual morphologies Reviewed: see results of individualmorphologies Reviewed: see results of individual morphologies Acanthocyte Few Few Ovalocytes Few Few RBC Fragments None Seen Few (A) Few (A) Few (A) Tear Drop Few Love [place] Bodies Occasional Occasional Occasional DTYPE Manual Manual [...] which included preparing to see the patient, [id number] patient care, completing clinical documentation, obtaining and/or reviewing separately obtained history, performing a medically appropriate examination, counseling and educating the pat ient/family/caregiver, ordering medications, tests, or procedures, communicating with other HCPs (not separately reported), and communicating results to the patient/family/caregiver. Bart Brooks DO [facility] Miscellaneous Notes* Telephone Encounter - Selvin Felder MD - 07/30/2023 3:11 PM EST Done * Telephone Encounter - Erika Chandra - 07/30/2023 1:40 PM EST Kaylene requesting refill as follows: Last FUV Mar 2023 with KA. NELSON Requested Prescriptions Pending Prescriptions Disp Refills carbidopa-levodopa (SINEMET) 25-100 mg per tablet 540 tablet 3 Si tablet 3 times a day at 8am, 1pm and 6pm Upon approval, script will be sent electronically to the patient's pharmacy. Erika Tobin, Dental Officer III documented [facility] Consult note Author Freddy Solano [facility] June 29, 2023 2:53pm Note Date/Time June 29, 2023 2 :53pm [facility] Medical Records Department [address] [address] Counseling Note - Pharmacy 06/29/23 1453 MR#: [id number] Acct: [id number] Name: KAYLENE HAYNES LY Rep #:[id number] : 1935 88 From: Freddy Solano PCP: Dr. Howard Zimmerman MD Status:ADM I NO Y Location: [place] [address] Pharmacy [facility] has performed discharge medication reconciliation and counseling for this patient. The patient's discharge medication list was reviewed for discrepancies and discrepancies were resolved. The patient was counseled on the following discharge medications and changes in medications for homegoing were reviewed. The Reason for Use, instructions for use, and potential side effects were reviewed for all new medications. The patient's questions regarding all of their medications were answered. 1. Aspirin 81 mg PO daily 2. Atorvastatin 40 mg PO daily The patient was able to verbally demonstrate an understanding of their dischargemedications. Medications at Discharge Home Medications multivitamin 1 tab PO DAILY vitamin 11/20/18 carbidopa 25 mg-levodopa 100 mg tablet 2 tab PO TID parkinsons 01/05/23 albuterol sulfate 90 mcg/actuation aerosol inhaler 2 puff inhalation Q4H PRN shortness of breath or wheezing 01/15/23 midodrine 5 mg tablet 5 mg PO TID blood pressure 06/28/23 aspirin 81 mg chewable tablet 81 mg PO BREAKFAST 1 month #30 tabs 06/29/23 atorvastatin 40 mg tablet 40 mg PO QHS 1 month #30 tabs 06/29/23 06/29/23 1453 <Electronically signed by Freddy monique> Date _ Freddy Solano Cosigner Signature (if applicable): Date CC: ~ Signed [facility] Work Phone: 1(139) 649-800501-12-2024 Discharge summary Author Avel Massey [facility] June 29, 2023 1:46pm Note Date/Time June 29, 2023 1 :45pm [facility] Medical Records Department [address] [place] [id number] Instructions for Home/Discharge Instructions 06/29/23 0940 MR#: [id number] Acct: [id number] Name: KAYLENE HAYNES LY Rep #:[id number] : 1935 88 From: Avel Marquez PCP: Dr. Howard Zimmerman MD Status:ADM I NO Discharge Instructions Diet Discharge Diet: 2000 mg Sodium Diet Activity Discharge Activity: Return to Normal Activity Weight Bearing Status: Weight bearing as tolerated Dressing / Incision Call your doctor if you observe: Fever of 101 or Higher, Coldness, Increased Pain, Numbness or Tingling, Change in Color, Inability to urinate, Inability to have a bowel movement, Shortness of breath, Dizziness, Fainting spells, Swellingin the ankles, Chest pain, Prolonged hiccupping, Increased palpitations (irregular heartbeat) and Calf discomfort Follow Up Care When: IN 2 WEEKS Test Results: Test results from this visit will be discussed in further detail at your follow- up appointment, if applicable. Discharge Plan Admission Admit Date/Time: 06/28/23 13:34 Primary Reason for Your Visit: Transient Ischmeic stoke Attending Provider: Avel Massey Primary Care Provider: Howard Zimmerman Chi Consulting Providers: Carlos Whipple; Karen Mckeon; Darcy Hernandez; Paige Martinez; Farzana Levin; Timothy Fortune; Cherie Mark; Jose Benson; Isiah Kelly; Eri Interiano; Vincent Suresh; Alayna Valverde; Ruy Sun; Luannedavid Ghosh; John Quesada; Pamela Kamara; Jonathon Rodríguez; Mallika Pinon; Roopa Tolbert; Daisy Mack Discharge Orders/Prescriptions Prescriptions: New atorvastatin 40 mg Tablet 40 mg PO QHS 30 Days Qty: 30 2RF aspirin 81 mg Tablet,Chewable 81 mg PO BREAKFAST 30 Days Qty: 30 3RF Continued carbidopa-levodopa 25-100 mg tablet 2 tab PO TID Patient Comments: patient took home dose at 1620 multivitamin tablet 1 tab PO DAILY albuterol sulfate 90 mcg/actuation HFA aerosol inhaler 2 puff INHALATION Q4H PRN (Reason: shortness of breath or wheezing) Patient Comments: TAKE 2 PUFFS BY MOUTH EVERY 4 HOURS NEEDED Rx Instructions: only uses rarely (1-2 times per year) midodrine 5 mg tablet 5 mg PO TID Patient Comments: TAKE 1 TABLET BY MOUTH THREE TIMES A DAY Other Ambulatory Orders: 30 Day Event Recorder Preventi (Urgent) Timeframe: 1 Day Facility: [facility] - Location: Cardiovascular Services Ordered By: Dr. Avel Massey Referrals / Follow Up: Mauri Florez MD [Non-Staff -Ordering Privileges] - Within 1 Month (for TIA) Howard Zimmerman Chi, MD [Primary Care Provider] - Disposition Disposition (needs filled in before D/C Order can be placed): Home, Self Care 06/29/23 1346<Electronically signed by Avel Massey MD>Avel Massey MD CC: Paige Martinez; Karen Mckeon; Alayna Valverde; John Salmeron; Farzana Levin MD;Darcy Hernandez MD; Carlos Whipple MD; Dr. Daisy Mack MD; Dr. Timothy Fortune MD; Dr. Cherie Mark MD; Dr. Isiah Kelly MD; Dr. Jose Benson MD; Dr. Vincent Suresh DO; Dr. Elian Stroud MD; Dr. Ruy Sun MD; Dr. Pamela Kamara MD; Dr. Jonathon Rodríguez MD; Dr. Howard Zimmerman MD; Dr. Mallika Pinon MD; Eri Interiano DO; Roopa Tolbert MD ~ Signed [facility] Work Phone: 1(394) 101-117801-11-2024 Discharge summary Author Myrna Munguia [facility] June 28, 2023 2:51pm Note Date/Time June 28, 2023 1 :02pm [facility] Medical Records Department [address] [place] [address] Emergency Department Summary 06/28/23 MR#: [id number] Acct: [id number] Name: KAYLENE HAYNES Rep #:[id number] : 1935 88 From: Myrna Munguia MD PCP: Dr. Howard Zimmerman MD Status:REG E R Location: ED HPI History of Present Illness Chief Complaint: Confusion Informant: patient and family Narrative Narrative: Patient presents with son secondary to confusion and difficulty with speech. She reportedly was last seen by a friend and her son at 8:30 PM last evening andwas normal. When caregiver arrived this morning they noted patient seemed to have difficulty speaking. Patient states she felt like she just cannot get her words out and she felt that way upon waking this morning. She denies any fall or injury. Caregiver called son who presented to the home and he noted that shewas having difficulty with her speech as well. Symptoms do seem to be improvingat this time. [facility] Medical History (Updated 06/28/23 @ 13:[address] Myrna Munguia MD) History of atrial myxoma Hyperlipidemia Hypertension Lymphoma Nonrheumatic mitral (valve) prolapse Nonrheumatic mitral valve regurgitation Nonrheumatic tricuspid valve regurgitation Parkinsons disease Parotid tumor Premature atrial contractions Premature ventricular contraction Home Medications multivitamin 1 tab PO DAILY vitamin 11/20/18 [History Last Taken 01/15/23] carbidopa 25 mg-levodopa 100 mg tablet 2 tab PO TID parkinsons 01/05/23 [History Last Taken 07/31/23] albuterol sulfate 90 mcg/actuation aerosol inhaler 2 puff inhalation Q4H PRN shortness of breath or wheezing 01/15/23 [History Last Taken Unknown] midodrine 5 mg tablet 5 mg PO TID 06/28/23 [History Last Taken 06/28/23] Allergy/AdvReac Type Severity Reaction Status Date / Time Penicillins Allergy Rash Verified 06/28/23 12:19 tramadol AdvReac Other Verified 06/28/23 12:19 Surgical History History of laparoscopic cholecystectomy History of splenectomy Social History Smoking Status: Never smoker alcohol intake: current details: occasional substance use type: does not use ROS ROS ED Constitutional Constitutional ED: Denies chills or fever(s) Eyes Eyes: Denies discharge from eye(s) ENT ENT ED: Denies discharge from eye(s), rhinorrhea or sore throat Cardiovascular Cardiovascular: Denies chest pain or palpitations Respiratory/Chest Respiratory/Chest: Denies cough or dyspnea Gastrointestinal Gastrointestinal: Denies abdominal pain, nausea or vomiting Genitourinary Genitourinary ED: Denies dysuria Musculoskeletal Musculoskeletal: Denies back pain or extremity pain Integumentary Denies Abrasions or rash Neurologic Neurologic: Reports other Details: Difficulty speaking ; Denies headache(s) or weakness Psychiatric Psychiatric: Denies anxiety or depression Allergic/Immunologic Allergic/Immunologic ED: Denies lip swelling or urticaria EXAM Physical Exam Const Vital Signs: 06/28/23 12:17 06/28/23 12:50 06/28/23 12:55 Temperature 97.2 F L Temperature Source Temporal Pulse Rate 118 H 70 72 Respiratory Rate 18 17 21 H Blood Pressure 166/91 H 185/109 H 185/109 H Blood Pressure Mean 116 134 134 Pulse Ox 96 95 97 Oxygen Delivery Method Room Air Room Air Room Air 06/28/23 12:59 Temperature Temperature Source Pulse Rate Respiratory Rate Blood Pressure Blood Pressure Mean Pulse Ox 97 Oxygen Delivery Method Room Air Positive well nourished and well developed General Appearance ED: well developed HEENT Reports moist mucous membranes Eyes EOMs intact bilaterally Chest Wall inspection of chest normal and palpation of chest normal Resp normal respiratory effort and clear to auscultation bilaterally Cardio Rate: regular rate Rhythm: regular rhythm GI soft to palpation and non-tender Neuro oriented x3 NIHSS NIHSS Initial: 1a Level of Consciousness: 0 1b LOC Questions (Score 2 if aphasic/stupor): 0 1c LOC Commands (Only score 1st attempt): 0 2 Best Gaze (If aphasic, use reflexive mvmts.): 0 3 Visual: 0 4 Facial Palsy: 0 5 Motor Arm Right (UN = amputation/fusion): 0 5 Motor Arm Left: 0 6 Motor Leg Right: 0 6 Motor Leg Left: 0 8 Sensory (Aphasia/stupor=0 or 1, coma=2): 0 9 Best Language: 0 10 Dysarthria (mute, coma=2, intubated=UN): 0 11 Extinction and Inattention (only scored if +): 0 Total Score: 0 MDM MDM MDM Narrative Medical decision making narrative: Triage nurse notified us of the patient's current symptoms and stroke alert was activated. Patient sent to CT and I met the patient in her exam room upon returning. Patient had been placed on security monitor. IV line initiated. Labwork obtained to evaluate for leukocytosis, anemia, and electrolyte derangement. Chest x-ray obtained to evaluate for acute lung pathology, cardiacsize, or mediastinal abnormality. EKG obtained to evaluate for cardiac arrhythmia/ischemia. Patient has had a CT of the head as well as a CTA of the head and neck performed. As I am starting to examine the patient the stroke neurologist is available for evaluation. We complete her neurologic exam together and she has no deficits noted at this time. Noncontrast head CT reveals chronic changes with no acute findings. Patient's lab work and remainder of workup will be reviewed. Plan would be admission for remainder of stroke workup. History & Record Review Discussion w/independent historian: Patient and Family Additional record(s) reviewed:: Prior labs Lab Data Attestation: I reviewed the patient's lab results. Labs: Laboratory Results - last 24 hr 06/28/23 06/28/23 12:22 12:40 WBC 14.4 H RBC 4.30 Hgb 12.8 Hct 40.2 MCV 93.5 MCH 29.8 MCHC 31.8 L RDW Std Deviation 48.0 H RDW Coeff of [place] 14.0 Plt Count 357 MPV 9.6 Immature Gran % (Auto) 0.300 Neut % (Auto) 33.4 L Lymph % (Auto) 53.0 H [place] % (Auto) 8.4 Eos % (Auto) 2.3 Baso % (Auto) 2.6 H Absolute Neuts (auto) 4.8 Absolute Lymphs (auto) 7.62 H Nucleated RBC % 0 PT 12.6 INR 1.0 APTT 27.6 Sodium 137 Potassium 4.1 Chloride 103 Carbon Dioxide 29.0 Anion Gap 5 BUN 24 H Creatinine 1.02 Estim Creat Clear Calc 25.91 Est GFR (MDRD) Af Amer 66 Est GFR (MDRD) Non-Af 55 L BUN/Creatinine Ratio 23.5 H Glucose 91 Calcium 9.2 Troponin I High Sens 6 POC Glucose 78 Radiography Chest X-Ray - ED: 1 View, Read by ED Physician and Chronic Changes Diagnostic Testing: Clinical Impression(s) from Imaging Studies Brain CT 06/28/23 12:34 IMPRESSION: Chronic involutional changes of the brain. N.B. : The above Results were Read Back by Olivier Maradiaga MD to Dr Ezra MD, and understanding confirmed on 06/28/2023 12:55:52 (ET). Electronically Signed: Olivier Maradiaga MD at 12:57 EST , ADDENDUM: 06/28/23 1304 IMPRESSION: Chronic involutional changes of the brain. N.B. : The above Results were Read Back by Olivier Maradiaga MD to Dr Ezra MD, and understanding confirmed on 06/28/2023 12:55:52 (ET). Electronically Signed: Olivier Maradiaga MD at 12:57 EST , Head/Neck CTA 06/28/23 12:34 IMPRESSION: Mild degree of chronic calcific plaques at the origin of both the right and left internal carotid arteries. Electronically Signed: Olivier Maradiaga MD at 13:09 EST , ADDENDUM: 06/28/23 1316 IMPRESSION: Mild degree of chronic calcific plaques at the origin of both the right and left internal carotid arteries. N.B. : The above Results were Read Back by Olivier Maradiaga MD to Dr Ezra MD, and understanding confirmed on 06/28/2023 13:09:44 (ET). Electronically Signed: Olivier Maradiaga MD at 13:09 EST , EKG Initial EKG: Attestation: I personally reviewed and interpreted this EKG as follows: Interpretation: Sinus Rhythm (Sinus 82 with PACs. No acute ischemia.) Treatment and Re-Evaluation Narrative: CBC was a white count of 14.4 with normal differential. Patient has a history of chronic leukocytosis with white counts in the computer anywhere from 12-17 onprior visits. Chemistry studies are unremarkable. Troponin is normal at 6. BGT on arrival was 78. Portable chest x-ray per my interpretation was chronic changes. No focal infiltrate. CT scan of the head reveals chronic changes withno acute findings. CTA of the head and neck reveals mild degree of chronic calcific plaques at the origin of both the right and left internal carotids. EKG appears to be atrial fibrillation with PACs. Test results discussed with patient and son at bedside. [facility] neurologist recommended admission for remainder of stroke workup. I will speak with hospitalist. Discharge Plan Triage Chief Complaint: Confusion ED Provider: Myrna Munguia Dx/Rx/DC Orders Clinical Impression: Brain TIA Prescriptions: No Action carbidopa-levodopa 25-100 mg tablet 2 tab PO TID multivitamin tablet 1 tab PO DAILY albuterol sulfate 90 mcg/actuation HFA aerosol inhaler 2 puff INHALATION Q4H PRN (Reason: shortness of breath or wheezing) Patient Comments: TAKE 2 PUFFS BY MOUTH EVERY 4 HOURS NEEDED Rx Instructions: only uses rarely (1-2 times per year) midodrine 5 mg tablet 5 mg PO TID Patient Comments: TAKE 1 TABLET BY MOUTH THREE TIMES A DAY Primary Care Provider: Howard Zimmerman Chi Referrals: Howard Zimmerman Chi, MD [Primary Care Provider] - Disposition Disposition: Acute Care Hospital [facility] What to do if you have Problems For any increased pain, shortness of breath, bleeding, nausea or vomiting, chestpain, or any unexpected problems, contact your Primary Care Provider. Call [facility] ([phone]) or report to the closest Emergency Room. Call 911 if necessary. 06/28/23 145 <Electronically signed by Myrna Munguia MD> Cosigner Signature (if applicable): CC: Dr. Howard Zimmerman MD ~ Signed [facility] Work Phone: [phone]) 924-773001-11-2024 Discharge summary Author Myrna Munguia [facility] June 28, 2023 2:51pm Note Date/Time June 28, 2023 1 :02pm [facility] Medical Records Department [address] [place] [address] Emergency Department Summary 06/28/23 MR#: [id number] Acct: [id number] Name: KAYLENE HAYNES LY Rep #:[id number] : 1935 88 From: Myrna Munguia MD PCP: Dr. Howard Zimmerman MD Status:REG E R Location: ED HPI History of Present Illness Chief Complaint: Confusion Informant: patient and family Narrative Narrative: Patient presents with son secondary to confusion and difficulty with speech. She reportedly was last seen by a friend and her son at 8:30 PM last evening andwas normal. When caregiver arrived this morning they noted patient seemed to have difficulty speaking. Patient states she felt like she just cannot get her words out and she felt that way upon waking this morning. She denies any fall or injury. Caregiver called son who presented to the home and he noted that shewas having difficulty with her speech as well. Symptoms do seem to be improvingat this time. [facility] Medical History (Updated 06/28/23 @ 13:[address] Myrna Munguia MD) History of atrial myxoma Hyperlipidemia Hypertension Lymphoma Nonrheumatic mitral (valve) prolapse Nonrheumatic mitral valve regurgitation Nonrheumatic tricuspid valve regurgitation Parkinsons disease Parotid tumor Premature atrial contractions Premature ventricular contraction Home Medications multivitamin 1 tab PO DAILY vitamin 11/20/18 [History Last Taken 01/15/23] carbidopa 25 mg-levodopa 100 mg tablet 2 tab PO TID parkinsons 01/05/23 [History Last Taken 01/15/23] albuterol sulfate 90 mcg/actuation aerosol inhaler 2 puff inhalation Q4H PRN shortness of breath or wheezing 01/15/23 [History Last Taken Unknown] midodrine 5 mg tablet 5 mg PO TID 06/28/23 [History Last Taken 06/28/23] Allergy/AdvReac Type Severity Reaction Status Date / Time Penicillins Allergy Rash Verified 06/28/23 12:19 tramadol AdvReac Other Verified 06/28/23 12:19 Surgical History History of laparoscopic cholecystectomy History of splenectomy Social History Smoking Status: Never smoker alcohol intake: current details: occasional substance use type: does not use ROS ROS ED Constitutional Constitutional ED: Denies chills or fever(s) Eyes Eyes: Denies discharge from eye(s) ENT ENT ED: Denies discharge from eye(s), rhinorrhea or sore throat Cardiovascular Cardiovascular: Denies chest pain or palpitations Respiratory/Chest Respiratory/Chest: Denies cough or dyspnea Gastrointestinal Gastrointestinal: Denies abdominal pain, nausea or vomiting Genitourinary Genitourinary ED: Denies dysuria Musculoskeletal Musculoskeletal: Denies back pain or extremity pain Integumentary Denies Abrasions or rash Neurologic Neurologic: Reports other Details: Difficulty speaking ; Denies headache(s) or weakness Psychiatric Psychiatric: Denies anxiety or depression Allergic/Immunologic Allergic/Immunologic ED: Denies lip swelling or urticaria EXAM Physical Exam Const Vital Signs: 06/28/23 12:17 06/28/23 12:50 06/28/23 12:55 Temperature 97.2 F L Temperature Source Temporal Pulse Rate 118 H 70 72 Respiratory Rate 18 17 21 H Blood Pressure 166/91 H 185/109 H 185/109 H Blood Pressure Mean 116 134 134 Pulse Ox 96 95 97 Oxygen Delivery Method Room Air Room Air Room Air 06/28/23 12:59 Temperature Temperature Source Pulse Rate Respiratory Rate Blood Pressure Blood Pressure Mean Pulse Ox 97 Oxygen Delivery Method Room Air Positive well nourished and well developed General Appearance ED: well developed HEENT Reports moist mucous membranes Eyes EOMs intact bilaterally Chest Wall inspection of chest normal and palpation of chest normal Resp normal respiratory effort and clear to auscultation bilaterally Cardio Rate: regular rate Rhythm: regular rhythm GI soft to palpation and non-tender Neuro oriented x3 NIHSS NIHSS Initial: 1a Level of Consciousness: 0 1b LOC Questions (Score 2 if aphasic/stupor): 0 1c LOC Commands (Only score 1st attempt): 0 2 Best Gaze (If aphasic, use reflexive mvmts.): 0 3 Visual: 0 4 Facial Palsy: 0 5 Motor Arm Right (UN = amputation/fusion): 0 5 Motor Arm Left: 0 6 Motor Leg Right: 0 6 Motor Leg Left: 0 8 Sensory (Aphasia/stupor=0 or 1, coma=2): 0 9 Best Language: 0 10 Dysarthria (mute, coma=2, intubated=UN): 0 11 Extinction and Inattention (only scored if +): 0 Total Score: 0 MDM MDM MDM Narrative Medical decision making narrative: Triage nurse notified us of the patient's current symptoms and stroke alert was activated. Patient sent to CT and I met the patient in her exam room upon returning. Patient had been placed on security monitor. IV line initiated. Labwork obtained to evaluate for leukocytosis, anemia, and electrolyte derangement. Chest x-ray obtained to evaluate for acute lung pathology, cardiacsize, or mediastinal abnormality. EKG obtained to evaluate for cardiac arrhythmia/ischemia. Patient has had a CT of the head as well as a CTA of the head and neck performed. As I am starting to examine the patient the stroke neurologist is available for evaluation. We complete her neurologic exam together and she has no deficits noted at this time. Noncontrast head CT reveals chronic changes with no acute findings. Patient's lab work and remainder of workup will be reviewed. Plan would be admission for remainder of stroke workup. History & Record Review Discussion w/independent historian: Patient and Family Additional record(s) reviewed:: Prior labs Lab Data Attestation: I reviewed the patient's lab results. Labs: Laboratory Results - last 24 hr 06/28/23 06/28/23 12:22 12:40 WBC 14.4 H RBC 4.30 Hgb 12.8 Hct 40.2 MCV 93.5 MCH 29.8 MCHC 31.8 L RDW Std Deviation 48.0 H RDW Coeff of [place] 14.0 Plt Count 357 MPV 9.6 Immature Gran % (Auto) 0.300 Neut % (Auto) 33.4 L Lymph % (Auto) 53.0 H [place] % (Auto) 8.4 Eos % (Auto) 2.3 Baso % (Auto) 2.6 H Absolute Neuts (auto) 4.8 Absolute Lymphs (auto) 7.62 H Nucleated RBC % 0 PT 12.6 INR 1.0 APTT 27.6 Sodium 137 Potassium 4.1 Chloride 103 Carbon Dioxide 29.0 Anion Gap 5 BUN 24 H Creatinine 1.02 Estim Creat Clear Calc 25.91 Est GFR (MDRD) Af Amer 66 Est GFR (MDRD) Non-Af 55 L BUN/Creatinine Ratio 23.5 H Glucose 91 Calcium 9.2 Troponin I High Sens 6 POC Glucose 78 Radiography Chest X-Ray - ED: 1 View, Read by ED Physician and Chronic Changes Diagnostic Testing: Clinical Impression(s) from Imaging Studies Brain CT 06/28/23 12:34 IMPRESSION: Chronic involutional changes of the brain. N.B. : The above Results were Read Back by Olivier Maradiaga MD to Dr Ezra MD, and understanding confirmed on 06/28/2023 12:55:52 (ET). Electronically Signed: Olivier Maradiaga MD at 12:57 EST , ADDENDUM: 06/28/23 1304 IMPRESSION: Chronic involutional changes of the brain. N.B. : The above Results were Read Back by Olivier Maradiaga MD to Dr Ezra MD, and understanding confirmed on 06/28/2023 12:55:52 (ET). Electronically Signed: Olivier Maradiaga MD at 12:57 EST , Head/Neck CTA 06/28/23 12:34 IMPRESSION: Mild degree of chronic calcific plaques at the origin of both the right and left internal carotid arteries. Electronically Signed: Olivier Maradiaga MD at 13:09 EST , ADDENDUM: 06/28/23 1316 IMPRESSION: Mild degree of chronic calcific plaques at the origin of both the right and left internal carotid arteries. N.B. : The above Results were Read Back by Olivier Maradiaga MD to Dr Ezra MD, and understanding confirmed on 06/28/2023 13:09:44 (ET). Electronically Signed: Olivier Maradiaga MD at 13:09 EST , EKG Initial EKG: Attestation: I personally reviewed and interpreted this EKG as follows: Interpretation: Sinus Rhythm (Sinus 82 with PACs. No acute ischemia.) Treatment and Re-Evaluation Narrative: CBC was a white count of 14.4 with normal differential. Patient has a history of chronic leukocytosis with white counts in the computer anywhere from 12-17 onprior visits. Chemistry studies are unremarkable. Troponin is normal at 6. BGT on arrival was 78. Portable chest x-ray per my interpretation was chronic changes. No focal infiltrate. CT scan of the head reveals chronic changes withno acute findings. CTA of the head and neck reveals mild degree of chronic calcific plaques at the origin of both the right and left internal carotids. EKG appears to be atrial fibrillation with PACs. Test results discussed with patient and son at bedside. [facility] neurologist recommended admission for remainder of stroke workup. I will speak with hospitalist. Discharge Plan Triage Chief Complaint: Confusion ED Provider: Myrna Munguia Dx/Rx/DC Orders Clinical Impression: Brain TIA Prescriptions: No Action carbidopa-levodopa 25-100 mg tablet 2 tab PO TID multivitamin tablet 1 tab PO DAILY albuterol sulfate 90 mcg/actuation HFA aerosol inhaler 2 puff INHALATION Q4H PRN (Reason: shortness of breath or wheezing) Patient Comments: TAKE 2 PUFFS BY MOUTH EVERY 4 HOURS NEEDED Rx Instructions: only uses rarely (1-2 times per year) midodrine 5 mg tablet 5 mg PO TID Patient Comments: TAKE 1 TABLET BY MOUTH THREE TIMES A DAY Primary Care Provider: Howard Zimmerman Chi Referrals: Howard Zimmerman Chi, MD [Primary Care Provider] - Disposition Disposition: Acute Care Hospital [facility] What to do if you have Problems For any increased pain, shortness of breath, bleeding, nausea or vomiting, chestpain, or any unexpected problems, contact your Primary Care Provider. Call [facility] ([phone]) or report to the closest Emergency Room. Call 911 if necessary. 06/28/23 1451 <Electronically signed by Myrna Munguia MD> Cosigner Signature (if applicable): CC: Dr. Howard Zimmerman MD ~ Signed [facility] Work Phone: [phone]) 360-269501-11-2024 History and physical note Author Daisy Mack [facility] June 28, 2023 2:12pm Note Date/Time June 28, 2023 1 :31pm [facility] Medical Records Department [address] [place] [address] H&P Exam - Hospitalist 06/28/23 1330 MR#: [id number] Acct: [id number] Name: KAYLENE HAYNES LY Rep #:[id number] : 1935 88 From: Daisy Mack MD PCP: Dr. Howard Zimmerman MD Status:REG E R Location: ED HPI - General General Date of Admission: 06/28/23 Date of Service: 06/28/23 Chief Complaint: Expressive aphasia HPI Narrative The patient is an 88 y/o F w/ PMHx: Chronic orthostatis, CKD stage II per GFR trending, HTN, HLD, Hx Atrial myxoma, Hx Parotid tumor, Lymphoma, Hx PAC/PVC, Parkinson's disease, Valvular Heart Disease who lives alone who presents to the [facility] ED on 06/28/23 with history of low normal at 8:30 PM the evening prior per family and upon awakening this morning noted she was having difficulty getting her words out which she immediately noticed and when she talked to her son he said it was like she was trying to put 2 sentences together that did not match prompting transition to the ED unfortunately upon arrival she began to improve. Her initial NIH stroke score per ED physician 0. Patient notes feeling back to her baseline. She does state that she went to bed the evening prior to approximately 10 PM as she was watching TV specifically the [employer] station anddid not notice any issues at that time. Workup in the ED included T97.2, heart rate initially 118 with most recent repeat 72, BP initially 166/91 with most recent repeat 185/109, respiratory rate 21, 97% on room air, CBC with WBC 14.4, hemoglobin 12.8, platelet 357 with lymphocytosis, unremarkable coags, BMP with BUN/creatinine 24/1.02 otherwise unremarkable, troponin 6, CT of the brain with chronic involutional changes, CTA head and neck with mild degree of chronic calcific plaques at the origin of both the right and left internal carotid arteries with otherwise no acute findings, chest x-ray with no acute findings, EKG with sinus rhythm with PACs. In the ED patient administered aspirin 325 mg p.o. x 1. PFSH Medical History CKD (chronic kidney disease), stage II History of atrial myxoma Hyperlipidemia Hypertension Lymphoma Nonrheumatic mitral (valve) prolapse Nonrheumatic mitral valve regurgitation Nonrheumatic tricuspid valve regurgitation Parkinsons disease Parotid tumor Premature atrial contractions Premature ventricular contraction Home Medications multivitamin 1 tab PO DAILY vitamin 11/20/18 [History Last Taken 01/15/23] carbidopa 25 mg-levodopa 100 mg tablet 2 tab PO TID parkinsons 01/05/23 [History Last Taken 01/15/23] albuterol sulfate 90 mcg/actuation aerosol inhaler 2 puff inhalation Q4H PRN shortness of breath or wheezing 01/15/23 [History Last Taken Unknown] midodrine 5 mg tablet 5 mg PO TID 06/28/23 [History Last Taken 06/28/23] Allergy/AdvReac Type Severity Reaction Status Date / Time Penicillins Allergy Rash Verified 06/28/23 12:19 tramadol AdvReac Other Verified 06/28/23 12:19 Family History Father Heart disease CHF (congestive heart failure) Mother No problems noted. Surgical History (Updated 06/28/23 @ 14:[address] Daisy Mack MD) History of laparoscopic cholecystectomy History of splenectomy Social History (Updated 06/28/23 @ 14:[address] Daisy Mack MD) household members: none Smoking Status: Never smoker alcohol intake: current details: occasional substance use type: does not use ROS ROS Narrative Admission Review of Systems: CONSTITUTIONAL: No weight loss, fever, chills, + weakness or fatigue. HEENT: Eyes: No visual loss, blurred vision, double vision or yellow sclerae. Ears, Nose, Throat: No hearing loss, sneezing, congestion, runny nose or sore throat. SKIN: No rash or itching, lesions, wounds. CARDIOVASCULAR: No chest pain, chest pressure or chest discomfort, palpitations,edema, orthopnea, syncopal events. RESPIRATORY: No shortness of breath, cough or sputum, wheezing, hemoptysis. GASTROINTESTINAL: No anorexia, nausea, vomiting or diarrhea, abdominal pain, melena, BRBPR. GENITOURINARY: No dysuria, frequency, urgency or retention. NEUROLOGICAL: + Transient expressive aphasia, underlying history of Parkinson's disease with chronic debility, imbalance, tremors. No headache, dizziness, syncope, paralysis, ataxia, numbness or tingling in the extremities, focal weakness, change in bowel or bladder control, seizure. MUSCULOSKELETAL: + muscle, back pain, joint pain or stiffness. HEMATOLOGIC: No anemia. Easy bleeding/bruising. LYMPHATICS: No enlarged nodes. No history of splenectomy. PSYCHIATRIC: No history of depression or anxiety. ENDOCRINOLOGIC: No reports of sweating, cold or heat intolerance. No polyuria orpolydipsia. ALLERGIES: + History of hives. Vital Signs Vital Signs Vital Signs: 06/28/23 12:17 06/28/23 12:50 06/28/23 12:55 Temperature 97.2 F L Temperature Source Temporal Pulse Rate 118 H 70 72 Respiratory Rate 18 17 21 H Blood Pressure 166/91 H 185/109 H 185/109 H Blood Pressure Mean 116 134 134 Pulse Ox 96 95 97 Oxygen Delivery Method Room Air Room Air Room Air 06/28/23 12:59 Temperature Temperature Source Pulse Rate Respiratory Rate Blood Pressure Blood Pressure Mean Pulse Ox 97 Oxygen Delivery Method Room Air Weight Weight: 93 lb 2 oz Body Mass Index (BMI) 17.0 Physical Exam Narrative Physical Examination: General: Awake, alert, oriented x >3 including self, place, year and month and cooperative, seated upright in the ED bed in no apparent distress, reports she feels back to her baseline. Skin: Normal color, normal turgor, no icterus, no cyanosis except occasional staged ecchymoses. HEENT: AT/NC, EOMI, PERRLA, mildly dry MM, no carotid bruits or JVD noted. Lungs: CTA bilaterally, moderate effort, mild decrease BL bases, no rales, ronchi or wheezing. Heart: Regular rate and rhythm; no gallop, rub audible, + SM. Abdomen: Soft, thin habitus, NTTP, ND, normal BS, no HSM. Extremities: No cyanosis, clubbing, or edema. Neurological: Patient awake, alert, oriented as noted, cognitive function suspect baseline intact; pupils equally reactive to light and accommodation, cranial nerves grossly normal, moving all 4 extremities, no focal deficits, finger-nose and wgzd-sq-ecty appropriate, equivocal Babinski, sensation appropriate, no further evidence of expressive aphasia. Psychiatric: Affect appears normal, no acute evidence of depressive or anxiety feelings. Results Lab / Micro Data 06/28/23 12:40 06/28/23 12:40 Labs: Laboratory Results - last 24 hr 06/28/23 12:22: POC Glucose 78 06/28/23 12:40: WBC 14.4 H, RBC 4.30, Hgb 12.8, Hct 40.2, MCV 93.5, MCH 29.8, MCHC 31.8 L, RDW Std Deviation 48.0 H, RDW Coeff of [place] 14.0, Plt Count 357, MPV9.6, Immature Gran % (Auto) 0.300, Neut % (Auto) 33.4 L, Lymph % (Auto) 53.0 H, [place] % (Auto) 8.4, Eos % (Auto) 2.3, Baso % (Auto) 2.6 H, Absolute Neuts (auto) 4.8, Absolute Lymphs (auto) 7.62 H, Nucleated RBC % 0, PT 12.6, INR 1.0, APTT 27.6, Sodium 137, Potassium 4.1, Chloride 103, Carbon Dioxide 29.0, Anion Gap 5,BUN 24 H, Creatinine 1.02, Estim Creat Clear Calc 25.91, Est GFR (MDRD) Af Amer 66, Est GFR (MDRD) Non-Af 55 L, BUN/Creatinine Ratio 23.5 H, Glucose 91, Calcium9.2, Troponin I High Sens 6 Imagaing Radiology Impression Brain CT 06/28/23 12:34 IMPRESSION: Chronic involutional changes of the brain. N.B. : The above Results were Read Back by Olivier Maradiaga MD to Dr Ezra MD, and understanding confirmed on 06/28/2023 12:55:52 (ET). Electronically Signed: Olivier Maradiaga MD at 12:57 EST , ADDENDUM: 06/28/23 1304 IMPRESSION: Chronic involutional changes of the brain. N.B. : The above Results were Read Back by Olivier Maradiaga MD to Dr Ezra MD, and understanding confirmed on 06/28/2023 12:55:52 (ET). Electronically Signed: Olivier Maradiaga MD at 12:57 EST , Head/Neck CTA 06/28/23 12:34 IMPRESSION: Mild degree of chronic calcific plaques at the origin of both the right and left internal carotid arteries. Electronically Signed: Olivier Maradiaga MD at 13:09 EST , ADDENDUM: 06/28/23 1316 IMPRESSION: Mild degree of chronic calcific plaques at the origin of both the right and left internal carotid arteries. N.B. : The above Results were Read Back by Olivier Maradiaga MD to Dr Ezra MD, and understanding confirmed on 06/28/2023 13:09:44 (ET). Electronically Signed: Olivier Maradiaga MD at 13:09 EST , Assessment & Plan Assessment/Plan (1) Brain TIA: PLAN: Plan The patient is an 88 y/o F w/ PMHx: Chronic orthostatis, CKD stage II per GFR trending, HTN, HLD, Hx Atrial myxoma, Hx Parotid tumor, Lymphoma, Hx PAC/PVC, Parkinson's disease, Valvular Heart Disease who lives alone who presents to the [facility] ED on 06/28/23 with history of low normal at 8:30 PM the evening prior per family and upon awakening this morning noted she was having difficulty getting her words out which she immediately noticed and when she talked to her son he said it was like she was trying to put 2 sentences together that did not match prompting transition to the ED unfortunately upon arrival she began to improve. #1. Transient expressive aphasia concerning for TIA, currently resolved: Will admit to PCU, will obtain MRI Brain, ECHO with bubble study, PT/OT/Speech/Nutrition evaluation per protocol. Will allow permissive HTN, maintain on asa with full-strength dose administered upon presentation, add low-dose statin w/ AM FLP, fall precautions. Mag, TSH, FLP, HgbA1c requested. Maintain on fall and aspiration precautions. Given stroke alert report will request ongoing neurology evaluation. #2. Parkinson's disease: Complicates presentation, will continue patient home Sinemet regimen, maintain on fall precautions, PT/OT consulted as noted as well as case management for discharge planning. Patient does report using a walker in her home. #3. History PAC/PVC: EKG upon presentation with significant evidence of PACs/PVCs however per discussion with ED physician do agree that P waves are present as initially reading atrial fibrillation, will continue monitor on telemetry, not on any beta-dorene therapy. #4. Hypertension: Will maintain permissive hypertension given presentation withparent agents per stroke protocol. Patient does have orthostasis and is on chronic low- dose midodrine therapy #5. Hyperlipidemia: Not on statin therapy, adding low-dose per stroke protocol recommendation pending further evaluation as noted, FLP in AM. #6. Chronic orthostasis: We will continue patient home chronic midodrine regimen, maintain on fall precautions. #7. Chronic Kidney Disease Stage II per GFR trending: Admission BUN/Cr 24/1.02,baseline renal function appears primarily 1.1-1.3, repeat BMP in AM. #8. Valvular heart disease: 01/15/2023 echocardiogram with EF 60%, mild MVI, trivial LEON. Repeat echo requested for bubble study. 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 #10. Lymphoma: Unclear specific type or diagnosis timeline, given presentation with lymphocytosis and the fact that patient does admit she sees [facility]. [facility] oncology routinely suspect this is an ongoing health issue, encourage continued follow-up as previously arranged. #11. DVT prophylaxis: Heparin. #12. CODE status: Patient IGNACIA is her son and living will is currently in place. Discussed CODE status at length including difference between FULL code, DNR-CCA and DNR-CC status. Following discussions about the differences in these status, requested DNR-CCA, no intubation status. Advanced Care Planning Face to Face Time: 16 minutes. Charges/Coding Visit Charges Inpatient E&M: 51709 Init Hosp L2 Procedures Hospitalists Procedures: 55772 Advncd Care Plan 30 Min 06/28/23 1412 <Electronically signed by Daisy Mack MD> Cosigner Signature (if applicable): CC: Dr. Daisy Mack MD; Dr. Howard Zimmerman MD~ Signed [facility] Work Phone: 1(958) 658-362501-11-2024 History and physical note Author Daisy Mack [facility] June 28, 2023 2:12pm Note Date/Time June 28, 2023 1 :31pm [facility] Medical Records Department [address] [place] [id number] H&P Exam - Hospitalist 06/28/23 1330 MR#: [id number] Acct: [id number] Name: KAYLENE HAYNES Rep #:[id number] : 1935 88 From: Daisy Mack MD PCP: Dr. Howard Zimmerman MD Status:REG E R Location: ED HPI - General General Date of Admission: 06/28/23 Date of Service: 06/28/23 Chief Complaint: Expressive aphasia HPI Narrative The patient is an 88 y/o F w/ PMHx: Chronic orthostatis, CKD stage II per GFR trending, HTN, HLD, Hx Atrial myxoma, Hx Parotid tumor, Lymphoma, Hx PAC/PVC, Parkinson's disease, Valvular Heart Disease who lives alone who presents to the [facility] ED on 06/28/23 with history of low normal at 8:30 PM the evening prior per family and upon awakening this morning noted she was having difficulty getting her words out which she immediately noticed and when she talked to her son he said it was like she was trying to put 2 sentences together that did not match prompting transition to the ED unfortunately upon arrival she began to improve. Her initial NIH stroke score per ED physician 0. Patient notes feeling back to her baseline. She does state that she went to bed the evening prior to approximately 10 PM as she was watching TV specifically the [employer] station anddid not notice any issues at that time. Workup in the ED included T97.2, heart rate initially 118 with most recent repeat 72, BP initially 166/91 with most recent repeat 185/109, respiratory rate 21, 97% on room air, CBC with WBC 14.4, hemoglobin 12.8, platelet 357 with lymphocytosis, unremarkable coags, BMP with BUN/creatinine 24/1.02 otherwise unremarkable, troponin 6, CT of the brain with chronic involutional changes, CTA head and neck with mild degree of chronic calcific plaques at the origin of both the right and left internal carotid arteries with otherwise no acute findings, chest x-ray with no acute findings, EKG with sinus rhythm with PACs. In the ED patient administered aspirin 325 mg p.o. x 1. [facility] Medical History CKD (chronic kidney disease), stage II History of atrial myxoma Hyperlipidemia Hypertension Lymphoma Nonrheumatic mitral (valve) prolapse Nonrheumatic mitral valve regurgitation Nonrheumatic tricuspid valve regurgitation Parkinsons disease Parotid tumor Premature atrial contractions Premature ventricular contraction Home Medications multivitamin 1 tab PO DAILY vitamin 11/20/18 [History Last Taken 01/15/23] carbidopa 25 mg-levodopa 100 mg tablet 2 tab PO TID parkinsons 01/05/23 [History Last Taken 01/15/23] albuterol sulfate 90 mcg/actuation aerosol inhaler 2 puff inhalation Q4H PRN shortness of breath or wheezing 01/15/23 [History Last Taken Unknown] midodrine 5 mg tablet 5 mg PO TID 06/28/23 [History Last Taken 06/28/23] Allergy/AdvReac Type Severity Reaction Status Date / Time Penicillins Allergy Rash Verified 06/28/23 12:19 tramadol AdvReac Other Verified 06/28/23 12:19 Family History Father Heart disease CHF (congestive heart failure) Mother No problems noted. Surgical History (Updated 06/28/23 @ 14:[address] Daisy Mack MD) History of laparoscopic cholecystectomy History of splenectomy Social History (Updated 06/28/23 @ 14:[address] Daisy Mack MD) household members: none Smoking Status: Never smoker alcohol intake: current details: occasional substance use type: does not use ROS ROS Narrative Admission Review of Systems: CONSTITUTIONAL: No weight loss, fever, chills, + weakness or fatigue. HEENT: Eyes: No visual loss, blurred vision, double vision or yellow sclerae. Ears, Nose, Throat: No hearing loss, sneezing, congestion, runny nose or sore throat. SKIN: No rash or itching, lesions, wounds. CARDIOVASCULAR: No chest pain, chest pressure or chest discomfort, palpitations,edema, orthopnea, syncopal events. RESPIRATORY: No shortness of breath, cough or sputum, wheezing, hemoptysis. GASTROINTESTINAL: No anorexia, nausea, vomiting or diarrhea, abdominal pain, melena, BRBPR. GENITOURINARY: No dysuria, frequency, urgency or retention. NEUROLOGICAL: + Transient expressive aphasia, underlying history of Parkinson's disease with chronic debility, imbalance, tremors. No headache, dizziness, syncope, paralysis, ataxia, numbness or tingling in the extremities, focal weakness, change in bowel or bladder control, seizure. MUSCULOSKELETAL: + muscle, back pain, joint pain or stiffness. HEMATOLOGIC: No anemia. Easy bleeding/bruising. LYMPHATICS: No enlarged nodes. No history of splenectomy. PSYCHIATRIC: No history of depression or anxiety. ENDOCRINOLOGIC: No reports of sweating, cold or heat intolerance. No polyuria orpolydipsia. ALLERGIES: + History of hives. Vital Signs Vital Signs Vital Signs: 06/28/23 12:17 06/28/23 12:50 06/28/23 12:55 Temperature 97.2 F L Temperature Source Temporal Pulse Rate 118 H 70 72 Respiratory Rate 18 17 21 H Blood Pressure 166/91 H 185/109 H 185/109 H Blood Pressure Mean 116 134 134 Pulse Ox 96 95 97 Oxygen Delivery Method Room Air Room Air Room Air 06/28/23 12:59 Temperature Temperature Source Pulse Rate Respiratory Rate Blood Pressure Blood Pressure Mean Pulse Ox 97 Oxygen Delivery Method Room Air Weight Weight: 93 lb 2 oz Body Mass Index (BMI) 17.0 Physical Exam Narrative Physical Examination: General: Awake, alert, oriented x >3 including self, place, year and month and cooperative, seated upright in the ED bed in no apparent distress, reports she feels back to her baseline. Skin: Normal color, normal turgor, no icterus, no cyanosis except occasional staged ecchymoses. HEENT: AT/NC, EOMI, PERRLA, mildly dry MM, no carotid bruits or JVD noted. Lungs: CTA bilaterally, moderate effort, mild decrease BL bases, no rales, ronchi or wheezing. Heart: Regular rate and rhythm; no gallop, rub audible, + SM. Abdomen: Soft, thin habitus, NTTP, ND, normal BS, no HSM. Extremities: No cyanosis, clubbing, or edema. Neurological: Patient awake, alert, oriented as noted, cognitive function suspect baseline intact; pupils equally reactive to light and accommodation, cranial nerves grossly normal, moving all 4 extremities, no focal deficits, finger-nose and wwdy-xb-ebwl appropriate, equivocal Babinski, sensation appropriate, no further evidence of expressive aphasia. Psychiatric: Affect appears normal, no acute evidence of depressive or anxiety feelings. Results Lab / Micro Data 06/28/23 12:40 06/28/23 12:40 Labs: Laboratory Results - last 24 hr 06/28/23 12:22: POC Glucose 78 06/28/23 12:40: WBC 14.4 H, RBC 4.30, Hgb 12.8, Hct 40.2, MCV 93.5, MCH 29.8, MCHC 31.8 L, RDW Std Deviation 48.0 H, RDW Coeff of [place] 14.0, Plt Count 357, MPV9.6, Immature Gran % (Auto) 0.300, Neut % (Auto) 33.4 L, Lymph % (Auto) 53.0 H, [place] % (Auto) 8.4, Eos % (Auto) 2.3, Baso % (Auto) 2.6 H, Absolute Neuts (auto) 4.8, Absolute Lymphs (auto) 7.62 H, Nucleated RBC % 0, PT 12.6, INR 1.0, APTT 27.6, Sodium 137, Potassium 4.1, Chloride 103, Carbon Dioxide 29.0, Anion Gap 5,BUN 24 H, Creatinine 1.02, Estim Creat Clear Calc 25.91, Est GFR (MDRD) Af Amer 66, Est GFR (MDRD) Non-Af 55 L, BUN/Creatinine Ratio 23.5 H, Glucose 91, Calcium9.2, Troponin I High Sens 6 Imagaing Rad[address] Impression Brain CT 06/28/23 12:34 IMPRESSION: Chronic involutional changes of the brain. N.B. : The above Results were Read Back by Olivier Maradiaga MD to Dr Ezra MD, and understanding confirmed on 06/28/2023 12:55:52 (ET). Electronically Signed: Olivier Maradiaga MD at 12:57 EST , ADDENDUM: 06/28/23 1304 IMPRESSION: Chronic involutional changes of the brain. N.B. : The above Results were Read Back by Olivier Maradiaga MD to Dr Ezra MD, and understanding confirmed on 06/28/2023 12:55:52 (ET). Electronically Signed: Olivier Maradiaga MD at 12:57 EST , Head/Neck CTA 06/28/23 12:34 IMPRESSION: Mild degree of chronic calcific plaques at the origin of both the right and left internal carotid arteries. Electronically Signed: Olivier Maradiaga MD at 13:09 EST , ADDENDUM: 06/28/23 1316 IMPRESSION: Mild degree of chronic calcific plaques at the origin of both the right and left internal carotid arteries. N.B. : The above Results were Read Back by Olivier Maradiaga MD to Dr Ezra MD, and understanding confirmed on 06/28/2023 13:09:44 (ET). Electronically Signed: Olivier Maradiaga MD at 13:09 EST , Assessment & Plan Assessment/Plan (1) Brain TIA: PLAN: Plan The patient is an 88 y/o F w/ PMHx: Chronic orthostatis, CKD stage II per GFR trending, HTN, HLD, Hx Atrial myxoma, Hx Parotid tumor, Lymphoma, Hx PAC/PVC, Parkinson's disease, Valvular Heart Disease who lives alone who presents to the [facility] ED on 06/28/23 with history of low normal at 8:30 PM the evening prior per family and upon awakening this morning noted she was having difficulty getting her words out which she immediately noticed and when she talked to her son he said it was like she was trying to put 2 sentences together that did not match prompting transition to the ED unfortunately upon arrival she began to improve. #1. Transient expressive aphasia concerning for TIA, currently resolved: Will admit to PCU, will obtain MRI Brain, ECHO with bubble study, PT/OT/Speech/Nutrition evaluation per protocol. Will allow permissive HTN, maintain on asa with full-strength dose administered upon presentation, add low-dose statin w/ AM FLP, fall precautions. Mag, TSH, FLP, HgbA1c requested. Maintain on fall and aspiration precautions. Given stroke alert report will request ongoing neurology evaluation. #2. Parkinson's disease: Complicates presentation, will continue patient home Sinemet regimen, maintain on fall precautions, PT/OT consulted as noted as well as case management for discharge planning. Patient does report using a walker in her home. #3. History PAC/PVC: EKG upon presentation with significant evidence of PACs/PVCs however per discussion with ED physician do agree that P waves are present as initially reading atrial fibrillation, will continue monitor on telemetry, not on any beta-dorene therapy. #4. Hypertension: Will maintain permissive hypertension given presentation withparent agents per stroke protocol. Patient does have orthostasis and is on chronic low- dose midodrine therapy #5. Hyperlipidemia: Not on statin therapy, adding low-dose per stroke protocol recommendation pending further evaluation as noted, FLP in AM. #6. Chronic orthostasis: We will continue patient home chronic midodrine regimen, maintain on fall precautions. #7. Chronic Kidney Disease Stage II per GFR trending: Admission BUN/Cr 24/1.02,baseline renal function appears primarily 1.1-1.3, repeat BMP in AM. #8. Valvular heart disease: 01/15/2023 echocardiogram with EF 60%, mild MVI, trivial LEON. Repeat echo requested for bubble study. 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 #10. Lymphoma: Unclear specific type or diagnosis timeline, given presentation with lymphocytosis and the fact that [facility] suspect this is an ongoing health issue, encourage continued follow-up as previously arranged. #11. DVT prophylaxis: Heparin. #12. CODE status: Patient IGNACIA is her son and living will is currently in place. Discussed CODE status at length including difference between FULL code, DNR-CCA and DNR-CC status. Following discussions about the differences in these status, requested DNR-CCA, no intubation status. Advanced Care Planning Face to Face Time: 16 minutes. Charges/Coding Visit Charges Inpatient E&M: 41811 Init Hosp L2 Procedures Hospitalists Procedures: 40321 Advncd Care Plan 30 Min 06/28/23 1412 <Electronically signed by Daisy Mack MD> Cosigner Signature (if applicable): CC: Dr. Daisy Mack MD; Dr. Howard Zimmerman MD~ Signed [facility] Work Phone: [phone]) 566-463912-05-2023 Miscellaneous Notes* Telephone Encounter - Ayanna Garza RN - 05/22/2023 1:58 PM EST Spoke with patient, message from provider given * Telephone Encounter - Selvin Felder MD - 05/22/2023 1:34 PM EST Stay hydrated unless advised to restrict fluids by cardiology or PCP. Should improve with time * Telephone Encounter - Ayanna Garza RN - 05/21/2023 2:32 PM EST Clarification of symptom onset, thick secretions since covid. Biting tongue, and light headedness symptoms are not new. Patient reports these symptoms have been present for a few months. * Telephone Encounter - Selvin Felder MD - 05/21/2023 12:47 PM EST If she is worse the past week or so in the setting of Covid then that is normal and it can take a few weeks to resolve. * Telephone Encounter - Ayanna Garza RN - 05/21/2023 12:00 PM EST Biting tongue, occasionally Pain in tongue side [...] and compression stocking and changing position slowly. * Telephone Encounter - Lianet Jean Fariba - 05/18/2023 3:20 PM EST Pt called for Dr. Felder to make sure she's doing everything she should be doing for her PD. Pt stated the PD is working on her - [phone]. 04/04/23 FUV w/Dr. Felder 10/08/23 FUV w/Gerry Felder [facility] History of Present illness Narrative* Selvin Felder MD - 04/04/2023 4:48 PM EDT [facility] - FOLLOW UP EVALUATION Howard Zimmerman MD [id number] [address] I had the pleasure of seeing Ms. [...] midodrine. She hasn't started it since pharmacy doesn'thave it. Legs can feel wobbly with prolonged standing. More off balance when walking sometimes. Plans on going to [facility] for PT. 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 Language is fluent with no aphasia. Motor Right Left Hip flexion 5 5 Knee flexion 5 5 Dorsiflexion 5 Coordination Right: Witvzk-qn-chid normal. Rapid alternating movement normal. Afej-op-fmev normal.Left: Ltmkgc-pa-guck normal. Rapid alternating movement normal. Nrcj-um-vcfn normal. Gait Generally stable gait except for [...] during tapping, b) mild slowing, c) the amplitudedecrements midway in the 10-tap sequence. Finger Taps [...] to one side, but patient can correct postureto normal posture when asked to do so. [...] has had recent falls. She attends multiple Parkinson'sexercise classes per week. She has been referred [...] are not making any changes today. If youfeel you are not tolerating them or your symptoms are changing before your next appointment, pleasefeel free to send me a [employer] message or contact the office - PT [...] to call with any questions. Sincerely, Selvin Felder MD [facility] Instructions* Patient Instructions* Selvin Felder MD - 04/04/2023 1:57 PM EDT Images from the original note were not included. It was a pleasure to see you today. We addressed the following diagnoses: Tongue biting Parkinson's disease without dyskinesia or fluctuating manifestations (primary encounter diagnosis) My recommendations are as follows: Continue your medications as you have been taking them. We are not making any changes today. If youfeel you are not tolerating them or your symptoms are changing before your next appointment, pleasefeel free to send me a [employer] message or contact the office Movement Disorders Medication Schedule: Medications 8a 1p 6p Sinemet 2 2 2 Return in about 6 months (around 10/04/2023). If there are any concerns before your next visit, please call or you can send a message through [employer]. You can also now schedule and select appointments through [employer]. Selvin Felder MD Fatigue and Parkinson s If you experience fatigue and sleep problems, you are not alone. These are common symptoms of Parkinson s disease (PD). In fact, fatigue can occur at any stage of Parkinson s, and many people report that fatigue is one of the symptoms that affects them the most. It can have a greater impact on yourquality of life than motor symptoms like stiffness, slowness or walking problems. But doctors don t always ask about fatigue, and people with Parkinson s and their care partners dont always know to bring it up. So how can you cope with and manage fatigue to feel your best? First,it is important to understand the causes. Then [...] because you feel like you just don thave the energy or motivation. If you notice [...] like fatigue. A person with this symptom mustmove slowly and will find it hard to finish a task in a regular amount of time. Everyday tasks suchas getting dressed can take a lot of [...] shaking, and akinesia put stress on a persons muscles. To move with these symptoms, muscles [...] and is often reported as a lack ofmotivation or a loss of energy. Tip: A [...] understanding how to help people with PD overcomeFatigue. In 2017, we provided funding to two researchers studying fatigue. Flaco Valenzuela, Ph.D. at [facility] is studying Multi-modal Neuroimaging of Fatigue [...] people with PD. Bishnu Christensen M.D. at [facility] is studying Remotely Supervised Transcranial Direct Current Stimulation (tDCS) for At-home Treatment of Fatigue and Cognitive Slowing in Parkinson s Disease This study looks at whether a non-invasive, brain stimulation device paired with online cognitive training could alleviate fatigue and cognitive slowing in people with PD. This study uses a speciallydesigned tDCS device through a new method of [...] find that you actually feel more energetic afteryou exercise! When exercising, you should have reasonable [...] For more information and resources see https://www.parkinson.org/. [facility] is a Center of Excellence for [...] of the leg muscles. This will help preventblood from a pooling in the legs when standing and walking. 7. Raise the head of the bed by 6 to 10 inches. The entire bed must be at an angle. Raising only the head portion of the bed at waist level or using pillows will not be effective. Raising the head ofthe bed will reduce urine formation overnight and [...] maneuvers increase blood pressure. documented in this encounter[facility]23 NoteHNO ID: [id number] Author: Tejal Willard PT Service: ? Author Type: Physical Therapist Type: Progress Notes Filed: 02/15/2023 9:59 AM Note Text: 02/15/2023 [facility] PHYSICAL THERAPY DISCONTINUANCE [...] to therapy or scheduled additional follow-up appointments. Tejal Willard, [facility]08-29-2023 History of Present illness Narrative* Bart Brooks, - 02/13/2023 12:08 PM EDT Diagnosis: 1) Lymphoproliferative disorder. HPI: The patient is a 87 yo female whom I saw in consultation at [facility] 2006for [facility]cytopenia following an admission for sepsis. Bone marrow biopsy demonstrated a normocellularbone marrow with no evidence of myelodysplasia, lymphoma [...] definite evidence of malignancy. 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 Received [address] [...] C (97.5 F), height 156 cm (5' 1.42), weight 43.5 kg (96 lb), SpO2 97 %. Frail-appearing and in no acute distress. EYES: Sclerae are anicteric bilaterally. LYMPHATIC: There is no palpable cervical, supraclavicular, axillary or inguinal adenopathy. RESPIRATORY: Inspiratory breath sounds are of normal intensity in all cray. CARDIOVASCULAR: Rhythm is irregular. ABDOMEN: The abdomen is nondistended. There is a small reducible hernia in the upper midline of theabdomen that is non-tender. Some tenderness with deep palpation but her abdomen is very thin and scaphoid and there is no obvious mass. Extremities: Free of edema. SKIN: No jaundice or rash. No petechiae. NEUROLOGIC: aeroplane pilot II-XII are grossly intact. No focal motor [...] k/uL 8.64 (H) 6.98 (H) 6.43 (H) [place]% % 6 7.0 7.0 6.0 Abs [place] <0.87 k/uL 0.75 1.08 (H) 0.96 (H) [...] of individual morphologies Reviewed: see results of individualmorphologies Acanthocyte Few Few Few Few Ovalocytes Few Few Few RBC Fragments None Seen Few (A) Few (A) Tear Drop Few Few Love [place] Bodies Occasional Occasional DTYPE Manual Manual Realym% [...] which included preparing to see the patient, [id number] patient care, completing clinical documentation, obtaining and/or reviewing separately obtained history, performing a medically appropriate examination, counseling and educating the pat ient/family/caregiver, communicating with other HCPs (not separately reported), and communicating results to the patient/family/caregiver. Bart Brooks DO documented in this encounterAk[facility]08-01-[facility]23 Discharge summary Author Gonzalez Garza [facility] January 16, 2023 11:47am Note Date/Time January 16, 2023 11: 45am [facility] Medical Records Department [address] [place] [address] Instructions for Home/Discharge Instructions 01/16/23 1144 MR#: [id number] Acct: [id number] Name: KAYLENE HAYNES LY Rep #:[id number] : 1935 87 From: Gonzalez Garza DO PCP: Dr. Howard Zimmerman MD Status:ADM I NO Discharge Instructions Diet Discharge Diet: No restrictions Activity Discharge Activity: Return to Normal Activity Weight Bearing Status: Full weight bearing Follow Up Care Test Results: Test results from this visit will be discussed in further detail at your follow- up appointment, if applicable. Discharge Plan Admission Admit Date/Time: 01/15/23 12:19 Primary Reason for Your Visit: Presyncope Attending Provider: Gonzalez Garza Primary Care Provider: Howard Zimmerman Chi Instructions Additional Instructions / Restrictions: It was recommended during your hospitalization that you follow-up with speech therapy as an outpatient, please discuss this with your family practitioner at your office visit Discharge Orders/Prescriptions Prescriptions: Continued ascorbic acid (vitamin C) 500 mg capsule 1,000 mg PO QDAY carbidopa-levodopa 25-100 mg tablet 2 tab PO TID multivitamin tablet 1 tab PO DAILY Metamucil 3.4 gram/5.4 gram powder 1 tsp PO DAILY PRN (Reason: Constipation) Rx Instructions: mix into at least 4 oz water or juice before administering albuterol sulfate 90 mcg/actuation HFA aerosol inhaler 2 puff INHALATION Q4H PRN (Reason: shortness of breath or wheezing) Patient Comments: TAKE 2 PUFFS BY MOUTH EVERY 4 HOURS NEEDED metoprolol tartrate 25 mg tablet 12.5 mg PO Q12H Rx Instructions: TAKE 1/2 TABLET BY MOUTH TWICE A DAY Referrals / Follow Up: Howard Zimmerman Chi, MD [Primary Care Provider] - Within 1 Week Disposition Disposition (needs filled in before D/C Order can be placed): Home, Self Care 01/16/23 1147<Electronically signed by Gonzalez Garza DO>Gonzalez Garza DO CC: Dr. Howard Zimmerman MD ~ Signed [facility] Work Phone: 1(523) 913-338107-31-2023 History and physical note Author Gonzalez Maganaredwood llcnacho [facility] January 15, 2023 8:10pm Note Date/Time January 15, 2023 7:58 pm [facility] Medical Records Department [address] [place] [address] H&P Exam - Hospitalist 01/15/231954 MR#: [id number] Acct: [id number] Name: KAYLENE HAYNES LY Rep #:[id number] : 1935 87 From: Gonzalez Garza DO PCP: Dr. Howard Zimmerman MD Status:ADM I NO [facility] - General General Date of Admission: 01/15/23 Date of Service: 01/15/23 Chief Complaint: Presyncope, dysarthria HPI Narrative KAYLENE HAYNES, is a 87 F who presents to the emergency room at [facility] after sustaining a presyncopal episode in the parking lot at [facility] today. She was getting out of her car. Patient states she did not pass out but struck her nose on her car door-she states she became lightheaded but did not feel she passed out. She was found to have slurred speech, a stroke team was called, patient underwent a head CT which was unremarkable, stroke score was zero. Patient underwent a CTA of the head and neck that showed no evidence of intra-arterial thrombus or occlusion of the major arteries, there was mild atherosclerotic plaque in the right carotid bulb and internal carotid artery. Patient was placed into observation status on PCU, she will undergo an MRI to rule out CVA, she will be monitored on telemetry, I will order an echocardiogram- patient has a history of mitral valve prolapse and she has not had an echocardiogram here since 2020. [facility] Medical History Acute bronchitis, unspecified Acute sinusitis, unspecified Contact with and (suspected) exposure to other viral communicable diseases Essential hypertension History of atrial myxoma Hyperlipidemia Hypertension Lymphoma Nonrheumatic mitral (valve) prolapse Nonrheumatic mitral valve regurgitation Nonrheumatic tricuspid valve regurgitation Parkinsons disease Parotid tumor Premature atrial contractions Premature ventricular contraction Home Medications ascorbic acid (vitamin C) 500 mg capsule 1,000 mg PO QDAY 12/31/17 [History Last Taken 01/15/23] multivitamin 1 tab PO DAILY 11/20/18 [History Last Taken 01/15/23] psyllium husk 3.4 gram/5.4 gram oral powder (Metamucil) 1 tsp PO DAILY PRN Constipation 11/23/21 [History Last Taken Unknown] carbidopa 25 mg-levodopa 100 mg tablet 2 tab PO TID 01/05/23 [History Last Taken 01/15/23] albuterol sulfate 90 mcg/actuation aerosol inhaler 2 puff inhalation Q4H PRN shortness of breath or wheezing 01/15/23 [History Last Taken Unknown] metoprolol tartrate 25 mg tablet 12.5 mg PO Q12H 01/15/23 [History Last Taken 01/15/23] Allergy/AdvReac Type Severity Reaction Status Date / Time Penicillins Allergy Rash Verified 01/05/23 16:11 tramadol AdvReac Other Verified 01/05/23 16:11 Surgical History History of laparoscopic cholecystectomy History of splenectomy Social History Smoking Status: Never smoker alcohol intake: current details: occasional substance use type: does not use ROS Constitutional Constitutional: Denies anorexia, change in weight, chills, fatigue, fever(s), malaise, night sweats or weakness Eyes Eyes: Denies blurry vision, change in vision, discharge from eye(s) or eye pain Cardiovascular Cardiovascular: Reports lightheadedness; Denies chest pain, claudication, dyspnea on exertion, edema or palpitations Respiratory/Chest Respiratory/Chest: Denies cough, hemoptysis, shortness of breath at rest or shortness of breath with exertion Gastrointestinal Gastrointestinal: Denies abdominal pain, constipation, diarrhea, hematemesis, hematochezia, melena, nausea or vomiting Genitourinary Genitourinary: Denies dysuria, hematuria, urinary frequency, urinary hesitancy, urinary incontinence or urinary urgency Musculoskeletal Musculoskeletal: Denies back pain, joint pain, joint stiffness, joint swelling, myalgias or neck pain Neurologic Neurologic: Denies abnormal gait, abnormal speech, dizziness, focal weakness, headache(s), loss of vision, numbness, other visual disturbances, paresthesias, syncope or tingling Psychiatric Psychiatric: Denies anxiety, cognitive impairment, depression, irritability, mood swings or suicidal ideation Endocrine Endocrinology: Denies change in body appearance, cold intolerance, excessive sweating, heat intolerance, polydipsia or polyuria Hematologic/Lymphatic Hematologic/Lymphatic: Denies none, anemia, easy bleeding, easy bruising or lymphadenopathy Allergic/Immunologic Allergic/Immunologic: Denies rhinitis, urticaria, eczemia or asthma Vital Signs Vital Signs Vital Signs: 01/15/23 10:57 01/15/23 11:02 01/15/23 11:02 Temperature 97.6 F L Temperature Source Temporal Pulse Rate 100 69 Respiratory Rate 18 21 H Respiratory Effort Respiratory Depth Respiratory Pattern Blood Pressure 114/56 L 138/93 H Blood Pressure Mean 75 108 Blood Pressure Source Blood Pressure Position Blood Pressure Location Pulse Ox 95 94 Oxygen Delivery Method Room Air Room Air Room Air Oxygen Flow Rate (L/min) 01/15/23 10:52 01/15/23 11:22 01/15/23 11:24 Temperature 98.0 F Temperature Source Temporal Pulse Rate 73 65 Respiratory Rate 18 16 Respiratory Effort Respiratory Depth Respiratory Pattern Blood Pressure 138/93 H 138/76 H Blood Pressure Mean 108 96 Blood Pressure Source Blood Pressure Position Blood Pressure Location Pulse Ox 95 93 95 Oxygen Delivery Method Room Air Room Air Nasal Cannula Oxygen Flow Rate (L/min) 2 01/15/23 11:30 01/15/23 12:00 01/15/23 12:07 Temperature 98.0 F 97.9 F 97.9 F Temperature Source Temporal Temporal Temporal Pulse Rate 65 65 65 Respiratory Rate 20 H 20 H 20 H Respiratory Effort Respiratory Depth Respiratory Pattern Blood Pressure 129/83 H 136/79 H 136/79 H Blood Pressure Mean 98 98 98 Blood Pressure Source Blood Pressure Position Blood Pressure Location Pulse Ox 99 99 98 Oxygen Delivery Method Nasal Cannula Nasal Cannula Nasal Cannula Oxygen Flow Rate (L/min) 2 1 1 01/15/23 12:30 01/15/23 12:55 01/15/23 13:33 Temperature 97.6 F L 97.7 F L 96.9 F L Temperature Source Temporal Oral Temporal Pulse Rate 63 62 53 L Respiratory Rate 14 17 16 Respiratory Effort Respiratory Depth Respiratory Pattern Blood Pressure 139/82 H 143/84 H 147/91 H Blood Pressure Mean 101 103 109 Blood Pressure Source Monitor Monitor Blood Pressure Position Semi-Fowlers Semi-Fowlers Blood Pressure Location Left Arm Right Arm Pulse Ox 94 95 Oxygen Delivery Method Nasal Cannula Room Air Room Air Oxygen Flow Rate (L/min) 1 01/15/23 17:11 01/15/23 13:30 01/15/23 17:25 Temperature 96.7 F L Temperature Source Temporal Pulse Rate 70 Respiratory Rate 16 Respiratory Effort Normal Non-Labored Normal Non-Labored Respiratory Depth Normal Normal Respiratory Pattern Normal Normal Blood Pressure 113/79 Blood Pressure Mean 90 Blood Pressure Source Monitor Blood Pressure Position Semi-Fowlers Blood Pressure Location Right Arm Pulse Ox 95 95 Oxygen Delivery Method Room Air Room Air Room Air Oxygen Flow Rate (L/min) Weight Weight: 42.7 kg Body Mass Index (BMI) 18.3 Physical Exam Const alert, oriented x3, no apparent distress, average body habitus and healthy appearing General Appearance: cooperative, well kempt and well developed Orientation / Consciousness: awake, oriented to person, oriented to place and oriented to time HEENT normocephalic, hearing grossly normal bilaterally and moist oral mucous membranes HEENT Narrative: Patient has a small abrasion on the bridge of her nose Eyes PERRL, EOMs intact bilaterally and conjunctivae normal Neck supple, no JVD, thyroid normal and no carotid bruits General: trachea midline Resp normal respiratory effort, no retractions, no use of accessory muscles and clearto auscultation bilaterally Auscultation: Negative for rales, rhonchi or wheezes Cardio regular rate, regular rhythm, S1 normal heart sound, S2 normal heart sound, no murmurs, no rub and no gallops GI normal to inspection, nondistended, normoactive bowel sounds, soft to palpation,non-tender and non-distended Extremity no clubbing, cyanosis or edema Skin no rashes or lesions noted General Skin Exam: no breakdown Neuro oriented x3, CN's II-XII intact bilaterally, no focal motor deficits and no sensory deficits noted Sensorium / Orientation: awake, alert, oriented to person, oriented to place andoriented to time Speech: speech normal Psych affect normal Results Medical Records Data Medical Nutrition Assessment Dietitian: Malnutrition Criteria Met Start: 01/15/23 16:51 Freq: Status: Active Protocol: Document 01/15/23 16:52 RMA (Rec: 01/15/23 16:52 RMA [id number]) Nutrition Malnutrition Evidence of Malnutrition Exists Yes Malnutrition (severe): Chronic Evidenced By Suboptimal Energy Intake ( Severe),Weight Loss (Severe), Physical Changes (Severe) Clinical Problem Chronic Disease or Condition Related Malnutrition Etiology Severe protein-calorie malnutrition in the context of chronic disease/debility related to inadequate oral/ energy intake Signs/Symptoms as evidenced by ~10% unintentional weight loss x 6 months, poor PO meeting less than 50% estimated nutrition needs x 6 months, BMI 18.4 and moderate to severe muscle wasting/fat depletion in the face, clavicle, arms and legs Status Active Problem Recommendation Dietitian Recommendations/Changes Will continue liberalized regular diet with consistency alteration as indicated per PULP REFINER OPERATOR. Will continue 120mL ensure plus high protein 4 times per day with medpass. Will add ensure pudding w/ lunch and magic cup w/ dinner for tolerance. Lab / Micro Data 01/15/23 11:03 01/15/23 11:03 Labs: Laboratory Results - last 24 hr 01/15/23 11:03: WBC 12.2 H, RBC 3.67 L, Hgb 11.4 L, Hct 34.4 L, MCV 93.7, MCH 31.1, MCHC 33.1, RDW Std Deviation 46.2 H, RDW Coeff of [place] 13.4, Plt Count 313,MPV 9.0, Immature Gran % (Auto) 0.400, Neut % (Auto) 45.8 L, Lymph % (Auto) 40.9, [place] % (Auto) 9.2, Eos % (Auto) 1.3, Baso % (Auto) 2.4 H, Absolute Neuts (auto) 5.6, Absolute Lymphs (auto) 4.97 H, Nucleated RBC % 0, PT 14.1, INR 1.1, APTT 25.4, Sodium 134 L, Potassium 3.9, Chloride 102, Carbon Dioxide 29.0, AnionGap 3 L, BUN 21 H, Creatinine 1.33 H, Estim Creat Clear Calc 21.86, Est GFR (MDRD) Af Amer 49 L, Est GFR (MDRD) Non-Af 40 L, BUN/Creatinine Ratio 15.8, Glucose 153 H, Calcium 8.2 L, Troponin I High Sens [address] 01/15/23 10:52 IMPRESSION: Chronic involutional changes of the brain. N.B. : The above Results were Read Back by Olivier Maradiaga MD to Dr Tequila DO, and understanding confirmed on 01/15/2023 11:04:40 (ET). Electronically Signed: Olivier Maradiaga MD at 11:06 EDT , ADDENDUM: 01/15/23 1113 IMPRESSION: Chronic involutional changes of the brain. N.B. : The above Results were Read Back by Olivier Maradiaga MD to Dr Tequila DO, and understanding confirmed on 01/15/2023 11:04:40 (ET). Electronically Signed: Olivier Maradiaga MD at 11:06 EDT , Head/Neck CTA 01/15/23 10:58 IMPRESSION: 1. No demonstrated intra-arterial thrombus or occlusion of the major arteries of the [place] or demonstrated aneurysm or hemodynamically significant stenosis. 2. Mild atherosclerotic plaque right carotid bulb and internal carotid artery. N.B. : The above Results were Read Back by Wilmer Infante MD to Stephanie Gonzalez DO, and understanding confirmed on 01/15/2023 11:54:24 (ET). Electronically Signed: Wilmer Infante MD at 11:55 EDT , ADDENDUM: 01/15/23 1202 IMPRESSION: 1. No demonstrated intra-arterial thrombus or occlusion of the major arteries of the [place] or demonstrated aneurysm or hemodynamically significant stenosis. 2. Mild atherosclerotic plaque right carotid bulb and internal carotid artery. N.B. : The above Results were Read Back by Wilmer Infante MD to Stephanie Gonzalez DO, and understanding confirmed on 01/15/2023 11:54:24 (ET). Electronically Signed: Wilmer Infante MD at 11:55 EDT , Chest X-Ray 01/15/23 11:44 IMPRESSION: Progressive increased markings at the right lung base suggestive of atelectasis superimposed on basilar scarring. Electronically Signed: Olivier Maradiaga MD at 12:02 EDT , Brain MRI 01/15/23 12:26 IMPRESSION: (NOT LISTED IN ORDER OF SIGNIFICANCE) There are no acute intracranial findings. Electronically Signed: Melvin Diamond MD at 16:20 EDT Reading Location ID and State: [facility] / [place] , Service support , Echocardiogram 01/15/23 13:01 Interpretation Summary The estimated ejection fraction is 60 %. Mild (1+) mitral valve insufficiency. Trivial aortic valve insufficiency. Ordering Physician: Gonzalez Garza Referring Physician: Howard Zimmerman Chi Performed By: Laurie Villarreal RDCS Assessment & Plan Assessment/Plan (1) Near syncope: PLAN: Plan 1. Presyncope-etiology unclear, patient was placed in observation status on PCU, she will undergo an MRI of the brain to rule out CVA, echocardiogram will be performed to check for any valvular heart disease or LV impairment, she will be seen by PT and OT. #2 Parkinson's disease-patient will remain on her home medication #3 cardiac arrhythmias-patient has a history of PACs and PVCs, she will remain on metoprolol Total clinical time spent by myself addressing the patient's medical issues, reviewing all of her data, and collaborating with patient's care team: 55 minutes Charges/Coding Visit Charges Inpatient E&M: 11672 Init Hosp L2 01/15/232009 <Electronically signed by Gonzalez Garza DO> Cosigner Signature (if applicable): CC: Dr. Gonzalez Garza DO; Dr. Howard Zimmerman MD~ Signed [facility] Work Phone: 1(522) 369-605907-31-2023 Discharge summary Author Stephanie Gonzalez [facility] January 15, 2023 4:35pm Note Date/Time January 15, 2023 11:0 2am [facility] Medical Records Department [address] [place] [address] Emergency Department Summary 01/15/23 MR#: [id number] Acct: [id number] Name: KAYLENE HAYNES Rep #:[id number] : 1935 87 From: Stephanie Gonzalez DO PCP: Dr. Howard Zimmerman MD Status:ADM I NO Location: [place] [address] HPI History of Present Illness Chief Complaint: Stroke Alert Detail of Chief Complaint: Concern for stroke Informant: patient and EMS Narrative Narrative: Patient presents with concern for possible stroke. Patient apparently had gotten out of her vehicle and passed out. She was found on the ground initiallymostly unresponsive and slurred speech. Patient now complaining of a headache. Per EMS her speech is improved and now and she is moving all extremities. She has a history of Parkinson's. Apparently she is not anticoagulated. Patient denies recent illness. Currently she describes a mild headache. She denies neck pain. She denies chest pain or abdominal pain. [facility] Medical History Acute bronchitis, unspecified Acute sinusitis, unspecified Contact with and (suspected) exposure to other viral communicable diseases Essential hypertension History of atrial myxoma Hyperlipidemia Hypertension Lymphoma Nonrheumatic mitral (valve) prolapse Nonrheumatic mitral valve regurgitation Nonrheumatic tricuspid valve regurgitation Parkinsons disease Parotid tumor Premature atrial contractions Premature ventricular contraction Home Medications ascorbic acid (vitamin C) 500 mg capsule 1,000 mg PO QDAY 12/31/17 [History Last Taken Unknown] multivitamin 1 tab PO DAILY 11/20/18 [History Last Taken Unknown] psyllium husk 3.4 gram/5.4 gram oral powder (Metamucil) 1 tsp PO DAILY PRN Constipation 11/23/21 [History Last Taken Unknown] metoprolol tartrate 25 mg tablet See Rx Instructions .Route .COMPLEX #90 tabs 09/20/22 [Rx Last Taken Unknown] carbidopa 25 mg-levodopa 100 mg tablet 2 tab PO TID 01/05/23 [History Last Taken Unknown] albuterol sulfate 90 mcg/actuation aerosol inhaler inhalation 01/15/23 [History Last Taken Unknown] Allergy/AdvReac Type Severity Reaction Status Date / Time Penicillins Allergy Rash Verified 01/05/23 16:11 tramadol AdvReac Other Verified 01/05/23 16:11 Surgical History History of laparoscopic cholecystectomy History of splenectomy Social History Smoking Status: Never smoker alcohol intake: current details: occasional substance use type: does not use ROS ROS ED Review of Systems ROS Unobtainable: other Constitutional Constitutional ED: Reports lethargy; Denies chills, fever(s), sweats or weight loss Eyes Eyes: Denies blurry vision, change in vision or diplopia ENT ENT ED: Denies rhinorrhea or sore throat Cardiovascular Cardiovascular: Denies chest pain, orthopnea or racing heartbeat Respiratory/Chest Respiratory/Chest: Denies cough, dyspnea, dyspnea on exertion, orthopnea or sputum Gastrointestinal Gastrointestinal: Denies abdominal pain, diarrhea, nausea or vomiting Genitourinary Genitourinary ED: Denies dysuria, hematuria or urinary frequency Musculoskeletal Musculoskeletal: Denies arthralgias, back pain, myalgias or neck pain Integumentary Denies abscess, Abrasions or rash Neurologic Neurologic: Reports headache(s) and other Details: Slurred speech, weakness ; Denies weakness Psychiatric Psychiatric: Denies anxiety, depression or suicidal thoughts Endocrine Endocrinology: Denies polydipsia, polyphagia or polyuria Hematologic/Lymphatic Hematologic/Lymphatic: Denies easy bleeding, easy bruising or lymphadenopathy Allergic/Immunologic Allergic/Immunologic ED: Denies mouth swelling, tongue swelling or urticaria EXAM Physical Exam Const Vital Signs: 01/15/23 10:57 01/15/23 11:02 01/15/23 11:02 Temperature 97.6 F L Temperature Source Temporal Pulse Rate 100 69 Respiratory Rate 18 21 H Blood Pressure 114/56 L 138/93 H Blood Pressure Mean 75 108 Pulse Ox 95 94 Oxygen Delivery Method Room Air Room Air Room Air Oxygen Flow Rate (L/min) 01/15/23 10:52 01/15/23 11:22 01/15/23 11:24 Temperature 98.0 F Temperature Source Temporal Pulse Rate 73 65 Respiratory Rate 18 16 Blood Pressure 138/93 H 138/76 H Blood Pressure Mean 108 96 Pulse Ox 95 93 95 Oxygen Delivery Method Room Air Room Air Nasal Cannula Oxygen Flow Rate (L/min) 2 01/15/23 11:30 Temperature 98.0 F Temperature Source Temporal Pulse Rate 65 Respiratory Rate 20 H Blood Pressure 129/83 H Blood Pressure Mean 98 Pulse Ox 99 Oxygen Delivery Method Nasal Cannula Oxygen Flow Rate (L/min) 2 Positive well nourished and well developed General Appearance ED: well developed and NAD HEENT Reports TM's clear and moist mucous membranes normocephalic and atraumatic; Negative for trauma or tenderness Tympanic Membrane ED: Yes TM's clear Eyes PERRL and EOMs intact bilaterally General Eye ED: Negative for pale conjunctiva or scleral icterus Neck no lymphadenopathy, supple and no JVD General: Negative for tenderness Chest Wall inspection of chest normal and palpation of chest normal Chest: Negative for tenderness Resp normal respiratory effort and clear to auscultation bilaterally Effort and Inspection: Negative for respiratory distress or pain with movement Auscultation: Negative for rhonchi, wheezes or diminished lung sounds Cardio regular rate, regular rhythm, S1 normal heart sound, S2 normal heart sound and no murmurs Peripheral Pulses: pulses 2+ throughout GI normal to inspection, nondistended, normoactive bowel sounds, soft to palpation,non-tender, non-distended and no masses Back/Spine no CVA tenderness and no thoracic nor lumbar tenderness Extremity normal to inspection Extremity Narrative: Abrasion to right elbow and left forearm General Extremety ED: Negative for edema General Extremity: Negative for edema Neuro oriented x3, CN's II-XII intact bilaterally, no sensory deficits noted and gait normal Neuro Narrative: NIH stroke scale is a 1 for some mild dysarthria. No focal weakness noted. Sensorium / Orientation: awake, alert, oriented to person, oriented to place andoriented to time Motor Exam: strength 5/5 throughout and strength abnormal Psych mental status grossly normal Skin no rashes or lesions noted Skin Narrative: Abrasion to bridge of nose MDM MDM MDM Narrative Medical decision making narrative: AndPatient presents with concern for possible stroke. In the differential wouldbe stroke versus syncopal episode with head injury. EMS did check blood sugar and it was in the 160s. Stroke team was called prior to patient arrival in the emergency department. She was evaluated in the hallway on cot and emergently sent to the CT scanner to evaluate for stroke. Initial CT scan of brain withoutcontrast was unremarkable and no evidence for bleeding. Patient was evaluated by stroke neurologist initially but then the robot went offline and stroke neurologist could not finish her exam but initially did not find anything focal and does not recommend tPA. Patient's symptoms have currently resolved. CTA ofthe head and neck were negative for large vessel occlusions. EKG obtained on arrival showed a sinus rhythm with a rate of 70 bpm with PACs. CBC with differential showed slightly elevated white count 12.2 with hemoglobin 11.4 and platelet count of 313. Chemistries unremarkable. Troponin was normal at 5. Glucose was 153. Etiology of symptoms unclear as in the differential would be TIA versus syncope versus cardiac dysrhythmia versus slip and fall with head injury. History & Record Review Discussion w/independent historian: EMS personnel and Patient Lab Data Attestation: I reviewed the patient's lab results. Labs: Laboratory Results - last 24 hr 01/15/23 11:03 WBC 12.2 H RBC 3.67 L Hgb 11.4 L Hct 34.4 L MCV 93.7 MCH 31.1 MCHC 33.1 RDW Std Deviation 46.2 H RDW Coeff of [place] 13.4 Plt Count 313 MPV 9.0 Immature Gran % (Auto) 0.400 Neut % (Auto) 45.8 L Lymph % (Auto) 40.9 [place] % (Auto) 9.2 Eos % (Auto) 1.3 Baso % (Auto) 2.4 H Absolute Neuts (auto) 5.6 Absolute Lymphs (auto) 4.97 H Nucleated RBC % 0 PT 14.1 INR 1.1 APTT 25.4 Sodium 134 L Potassium 3.9 Chloride 102 Carbon Dioxide 29.0 Anion Gap 3 L BUN 21 H Creatinine 1.33 H Estim Creat Clear Calc 21.86 Est GFR (MDRD) Af Amer 49 L Est GFR (MDRD) Non-Af 40 L BUN/Creatinine Ratio 15.8 Glucose 153 H Calcium 8.2 L Troponin I High Sens 5 Radiography Diagnostic Testing: Clinical Impression(s) from Imaging Studies Brain CT 01/15/23 10:52 IMPRESSION: Chronic involutional changes of the brain. N.B. : The above Results were Read Back by Olivier Maradiaga MD to Dr Tequila DO, and understanding confirmed on 01/15/2023 11:04:40 (ET). Electronically Signed: Olivier Maradiaga MD at 11:06 EDT , ADDENDUM: 01/15/23 1113 IMPRESSION: Chronic involutional changes of the brain. N.B. : The above Results were Read Back by Olivier Maradiaga MD to Dr Tequila DO, and understanding confirmed on 01/15/2023 11:04:40 (ET). Electronically Signed: Olivier Maradiaga MD at 11:06 EDT , Head/Neck CTA 01/15/23 10:58 IMPRESSION: 1. No demonstrated intra-arterial thrombus or occlusion of the major arteries of the [place] or demonstrated aneurysm or hemodynamically significant stenosis. 2. Mild atherosclerotic plaque right carotid bulb and internal carotid artery. N.B. : The above Results were Read Back by Wilmer Infante MD to Stephanie Gonzalez DO, and understanding confirmed on 01/15/2023 11:54:24 (ET). Electronically Signed: Wilmer Infante MD at 11:55 EDT , ADDENDUM: 01/15/23 1202 IMPRESSION: 1. No demonstrated intra-arterial thrombus or occlusion of the major arteries of the [place] or demonstrated aneurysm or hemodynamically significant stenosis. 2. Mild atherosclerotic plaque right carotid bulb and internal carotid artery. N.B. : The above Results were Read Back by Wilmer Infante MD to Stephanie Gonzalez DO, and understanding confirmed on 01/15/2023 11:54:24 (ET). Electronically Signed: Wilmer Infante MD at 11:55 EDT , Chest X-Ray 01/15/23 11:44 IMPRESSION: Progressive increased markings at the right lung base suggestive of atelectasis superimposed on basilar scarring. Electronically Signed: Olivier Maradiaga MD at 12:02 EDT , 1 view chest x-ray obtained interpreted by myself as no evidence of infiltrate or pneumothorax or acute disease process. Official report from radiology pending. EKG Initial EKG: Attestation: I personally reviewed and interpreted this EKG as follows: Comments: Sinus rhythm with a rate of 70 bpm with PACs otherwise no acute ST segment change Discharge Plan Dx/Rx/DC Orders Clinical Impression: Dysarthria, Syncope, Parkinson's disease Disposition Disposition: Acute Care Hospital [facility] What to do if you have Problems For any increased pain, shortness of breath, bleeding, nausea or vomiting, chestpain, or any unexpected problems, contact your Primary Care Provider. Call [facility] ([phone]) or report to the closest Emergency Room. Call 911 if necessary. 01/15/23 1635 <Electronically signed by Stephanie Gonzalez DO> Cosigner Signature (if applicable): CC: Dr. Howard Zimmerman MD ~ Signed [facility] Work Phone: [phone]) 522-947406-05-2023 Miscellaneous Notes* Telephone Encounter - [facility] [place] Darryl Mcdonough - 11/20/2022 3:29 PM EDT Patient called asking for EEG order to be faxed to [facility] diagnostic scheduling. Fax number [phone]. Order, demographics, and coverage faxed as requested. Electronically signed by [facility] [place] Darryl Mcdonough at 11/20/2022 3:30 PM EDT documented in this encounterAkron [facility]23 Discharge summary Author Marbella Doss [facility] September 25, 2022 2:57pm Note Date/Time September 19, 2022 1:42 pm [facility] Physical Therapy [facility] [address] [place] [address]. [address] [place] [address] / REHABILITATION SERVICES DISCHARGE SUMMARY MR#: [id number] Acct: [id number] Name: KAYLENE HAYNES Rep #: [id number] : 1935 87 From: Marbella Ramos Referring Dr.: OUT OF TOWN DOCTOR Status: REG RCR Insurance: [employer] [facility] SELF PAY INSURANCE It has been my pleasure to treat KAYLENE HAYNES referred by SRIDEVI SOLO, with the diagnosis of Parkinson's disease G20; Abnormality of gait, R26.9 for a totalof 9 visit(s). Discharge Date: 09/19/22 Please see the following information for a summary of their discharge status. Subjective: Pt reports that she is stretching at least once a day and the wall T. W and Y stretch is hard for her. She has some hip pain today on the L and does not know why. She did not fall or anything. She has a back ache which is normal for her. She has been doing the opp arm and leg. L hip pain Pain Intensity (Out of 10): 5 % Improvement: 50 Objective/Function: Pt did well with the above exercises. She had very little scissoring Goal 1:: Pt. will report no falls. Goal Progress: Goal Met Goal 2:: Pt. will be able to walk at least 20 minutes with no rest break to improve endurance. Goal Progress: Progressing Goal 3:: Pt. will improve tandem stance > 30 secs in order to improve stability and balance. Goal Progress: Goal Met Goal 4:: Pt. will be able to complete at least 16 sit to stands in 30 secs in order to improve mobility. Goal Progress: Goal Met Goal 5:: Pt. will be able to complete TUG < 8 secs in order to improve mobility. Goal Progress: Goal Met Goal 6:: Walk without scissoring Goal Progress: Progressing Plan: DC PT to I gym routine Discharge Comments: DC PT to I program If there are questions or concerns regarding this patient's physical therapy, please feel free to call me at [phone]. Thank you for the referral of thispatient. Sincerely, Marbella Doss, MPT Balance/Gait/Functional tests - Balance/Special Test Scores Functional Gait Assessment Score: 17 % Disability: 43.3400 Lower Extremity Functional Score: 57 <Electronically signed by Marbella Doss MPT> 09/25/22 8746 CC: Dr. Howard Zimmerman MD; SRIDEVI GERMANIA ~ Signed [facility] Work Phone: [phone] History of Present illness Narrative* Bart Brooks, DO - 08/15/2022 11:13 AM EST Diagnosis: 1) Lymphoproliferative disorder. HPI: The patient is a 86 yo female whom I [facility] in [facility] 2006for [facility]topenia following an admission for sepsis. Bone marrow biopsy demonstrated a normocellularbone marrow with no evidence of myelodysplasia, lymphoma [...] definite evidence of malignancy. 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 Received [address] [...] temperature source Temporal, height 156.2 cm (5' 1.5), weight 45.6 kg (100 lb 8 oz). Frail-appearing and in no acute distress. EYES: Sclerae are anicteric bilaterally. LYMPHATIC: There is no palpable cervical, supraclavicular, axillary or inguinal adenopathy. RESPIRATORY: Inspiratory breath sounds are of normal intensity in all cary. CARDIOVASCULAR: Rhythm is irregular. ABDOMEN: The abdomen is nondistended. There is a small reducible hernia in the upper midline of theabdomen that is non-tender today. Extremities: Free of edema. SKIN: No jaundice or rash. No petechiae. NEUROLOGIC: aeroplane pilot II-XII are grossly intact. No focal motor [...] (H) 6.05 (H) 6.84 (H) 6.51 (H) [place]% % 6.0 11.0 9.0 6.0 Abs [place] <0.87 k/uL 0.97 (H) 1.51 (H) 1.38 [...] Target Cells Few Few Few Few Love [place] Bodies Occasional Occasional DTYPE Manual ANC(includeSEG+BAND) k/uL [...] care. Bart Brooks DO documented in this encounterAkron [facility]02-01-2023 Progress note Author Rhoda Mercado [facility] July 19, 2022 12:14pm Note Date/Time July 19, 2022 1 2:14pm [facility] [address] [place] [id number] Progress Note - Wound Care 07/19/22 1211 MR#: [id number] Acct: [id number] Name: KAYLENE HAYNES LY Rep #:[id number] : 1935 87 From: Rhoda Mercado NP [employer] PCP: Dr. Howard Zimmerman MD Status:REG R CR Location: History of Present Illness Date of Service: 07/19/22 Chief Complaint: Follow-up right medial lower leg History of Wound: 87-year-old white female that fell in her bathroom approximately 3 to 4 weeks ago. Lacerated her right leg. Was seen in the emergency room and had suturing done. Dr. Cardenas removed sutures and the wound dehisced. He cultured the wound and found she has staph and has her on doxycycline. She is currently not using anything but a cover dressing. Was told to just rinse it. Progress of Wound: Wound resolvable patient will be discharged from the wound center Subjective Subjective Patient is very happy with outcome Objective Data Objective Data Wound is healed patient will be discharged and may follow-up as needed Vital Signs: Vital Signs Temp Pulse Resp BP O2 Del Method 96.2 F L 54 L 16 90/37 L Room Air 07/19/22 09:48 07/19/22 00:37 07/19/22 09:48 07/19/22 00:37 07/19/22 09:48 Oxygen Delivery Method Room Air Weight: 105 lb Body Mass Index (BMI) 19.8 Physical Exam Const oriented x3 General Appearance: cooperative Exam Limitations: no limitations Resp normal respiratory effort and no use of accessory muscles Effort and Inspection: able to speak in complete sentences Cardio regular rate and regular rhythm Rate: regular rate Rhythm: regular rhythm Extremity normal to inspection General Extremity: normal exam except as noted and other findings Other Details:Wound to lateral aspect of left lower leg. Skin no rashes or lesions noted Trauma: laceration Wounds: wounds noted Wound Narrative: Wound to lateral aspect of left lower leg. Appears to be healing well, some slough noted in the wound base. No surrounding erythema, warmth, foul odor, significant drainage. Neuro oriented x3 and CN's II-XII intact bilaterally Gait (Neuro): normal gait Motor Exam: strength 5/5 throughout Psych Appearance: grossly normal Speech: normal speech Thought Content: normal thought content Judgement: judgement good Debridement Note Debridement Note No debridement was completed: No debridement was completed today Post-Debridement Measurements and Additional Note: Post-Debridement Measurements/Treatment - Nurse 1 - General Ulcer Assessment Start: 07/19/22 09:47 Freq: Status: Active Protocol: .LOWEXT Activity Type Activity Date Activity User E-sign Co-sign Detail Recorded Client Recorded Date Recorded By Document 07/19/22 09:48 [facility] [id number] 07/19/22 09:55 [facility] 07/19/22 09:48 - Today's Visit Information Type of service Follow-up Visit (Physician/SIDE LASTER ) Arrival Mode Ambulatory Transfer Assistance None Patient Identification Verified (Name & Yes ) Patient Requires Transmission-Based No Precautions Height and Weight Body Mass Index (BMI) 19.8 BMI Classification Normal Vital Signs Temperature (97.8 F-99.1 F) 96.2 F L Temperature Source Temporal Pulse Location Monitor Respiratory Rate (12-18) 16 Respiratory rate source Observation Oxygen Delivery Method Room Air Source Monitor Position Sitting Blood Pressure Location Left Arm History Since Last Visit- (Skip if this is Patient's initial visit) Have you changed medications since your No last visit? Any new allergies or adverse reactions No Had a fall/change in ADL's that may No increase risk of falls Signs or symptoms of abuse and/or No neglect since last visit Have you been in the hospital since your No last visit? Has dressing in place as prescribed Yes Has compression in place as prescribed Yes Has offloadiing in place as prescribed N/A Experienced any changes in pain level or No management Left Footwear Regular Shoe Right Footwear Regular Shoe Pain Scale: 0-10 Numeric Is Patient Pain Free? Yes HODAN - Nurse 1 - General Ulcer Measurement Start: 07/19/22 09:47 Freq: Status: Active Protocol: Activity Type Activity Date Activity User E-sign Co-sign Detail Recorded Client Recorded Date Recorded By Document 07/19/22 09:48 [facility] [id number] 07/19/22 09:55 [facility] 07/19/22 09:48 Wound Center Nurse 1 #1- R ABDALLA -Combined with other wound No -Current Size (cm) - Length 1.2 -Current Size (cm) - Width 0.5 -Current Size (cm) - Depth 0.1 -Total Square Cm 0.60 -Date of Last Picture (Recall this 07/19/22 field) -Photo Taken Yes -Epithelialization Medium 34-66% -Tunneling No -Undermining/Tunneling No -Circular Undermining No -Exudate Amt Small -Exudate Type Serosanguineous -Wound Margin Distinct, Outline Attached -Granulation Amt Large (67-100%) -Granulation Quality Red -Slough/Fibrin Yes -Necrosis Amt Small (1-33%) -Necrotic Tissue Type Adherent Slough -Texture (Juanis-wound Skin Appearance) Assessed, Scarring -Moisture (Juanis-wound Skin Appearance) Assessed,Dry/ Scaly -Color (Juanis-wound Skin Appearance) Assessed -Temperature (Juanis-wound Skin No Abnormality Appearance) (Pt Warm) -Tenderness on Palpation (Juanis-wound No Skin Appearance) -Ulcer Cleansing Rinsed/ Irrigated with Saline -Foul Odor after Cleansing No -Anesthetic Used 5% Lidocaine Gel Right Calf (cm) 29.5 Right Ankle (cm) 17.8 HODAN - Nurse 2 - General Ulcer CM Notes Start: 07/19/22 09:47 Freq: Status: Active Protocol: Activity Type Activity Date Activity User E-sign Co-sign Detail Recorded Client Recorded Date Recorded By Document 07/19/22 10:03 MW [id number] 07/19/22 10:05 MW 07/19/22 10:03 Wound Center Nurse 2 #1- R ABDALLA -Time 10:03 -Correct Patient Yes -Correct Side, Site, Position Yes -Correct Procedure Yes -Procedure Performed No -Post Debridement (cm) - Length 0 -Post Debridement (cm) - Width 0 -Post Debridement (cm) - Depth 0 -Total Square (Post) (cm) 0 -Wound/Ulcer Outcome Healed- Epithelialized -Ulcer Cleansing Rinsed/ Irrigated with Saline -Foul Odor after Cleansing No -Bioengineered Tissue No -Bleeding Controlled with NA -Offloading No Pain Scale: 0-10 Numeric Is Patient Pain Free? Yes - Nurse 3 - General Ulcer D/C NN Start: 07/19/22 09:47 Freq: Status: Active Protocol: Activity Type Activity Date Activity User E-sign Co-sign Detail Recorded Client Recorded Date Recorded By Document 07/19/22 10:05 MW [id number] 07/19/22 10:06 MW 07/19/22 10:05 Wound Care Center Nurse 3 #1- R ABDALLA -Ulcer Cleansing Rinsed/ Irrigated with Saline -Foul Odor after Cleansing No -Negative Pressure Wound Therapy N/A -Primary Dressing Applied NonAdherent Contact Layer, Promogran Geovanna Matter, Mepilex Border -Mepilex Border 1 -Promogran Geovanna Matter 1 Right -Lotion applied to leg before No compression wrap -Stockings Yes Treatment Response Procedure Tolerated Well Pain Scale: 0-10 Numeric Is Patient Pain Free? Yes Teaching: Wound Center Dressing Your Wound -Person Taught Patient -Teaching Method Discussion -Response to teaching Verbalize understanding WC - Visit Discharge Discharge Condition Stable Ambulatory Status Ambulatory Transportation Private Auto Accompanied by self Medication Reconcilliation completed & No provided to patient/care provider Clinical Summary of Care Provided Yes Assessment/Plan Assessment/Plan (1) Laceration of leg: CODE(S): S81.819A - Laceration without foreign body, unspecified lower leg, initial encounter (2) Nonhealing nonsurgical wound: CODE(S): T14.8XXA - Other injury of unspecified body region, initial encounter PLAN: Discharge from the wound center follow-up as needed (3) Infected wound: CODE(S): T14.8XXA - Other injury of unspecified body region, initial encounter; L08.9 - Local infection of the skin and subcutaneous tissue, unspecified 07/19/22 1214 <Electronically signed by Rhoda CULPC> Cosigner Signature (if applicable): CC: ~ Signed [facility] Work Phone: 1(676) 966-678201-31-2023 NoteHNO ID: [id number] Author: Tejal Willard, OLIVERIO Service: ? Author Type: Physical Therapist Type: [...] of Care: created on 07/18/22 through 09/16/22 [place] in home exercise program. Patient will demonstrate [...] Planned: 8 Planned Treatment Interventions: Therapeutic exercise (11000), Neuromuscular re-education (03346), Therapeutic activities (44198), Patient/Family/Caregiver Education, Gait Training (19574) PLAN FOR NEXT VISIT: pt would like [...] Retired Recreation / Current Exercise: exercises at [employer] in [place] 3 days/week AND goes to Parkinsons group exercise class 2 days/week at [place] in [place] Home Environment Patient Lives With: Self/Alone Home [...] / Alignment Posture: Forw (more content not included)...[facility] 07-18-2022 History of Present illness Narrative* Tejal Willard, PT - 07/18/2022 6:42 PM EST Episode Visit Count: 1 Therapist That Will [...] independence in exercise, overall function, and strength. Prognosisfor therapy is Good due to: current objective clinical presentation, good overall health status, within-session changes, good support system/ coping skills (good motivation) . She will benefit from skilled therapy services to meet the goals established for this plan of care as noted below. Goals for Episode of Care: created on 07/18/22 through 09/16/22 [place] in home exercise program. Patient will demonstrate [...] Planned: 8 Planned Treatment Interventions: Therapeutic exercise (20424), Neuromuscular re- education (85346), Therapeutic activities (14973), Patient/Family/Caregiver Education, Gait Training (77506) PLAN FOR NEXT VISIT: pt would like [...] diagnosed with Parkinsons ~ 10 years ago -takes meds which neurologist just increased. pt reports previous tremors prior to starting meds. she exercises frequently, remains active & independent Patient Goals: better balance Functional Limitations: walking, physical activities, recreational activities Prior Level of Function: Independent without limitations Relevant History Past Relevant Medical Conditions: Arthritis, Parkinson's Disease Right or Left Handed: Left Employment: Retired Recreation / Current Exercise: exercises at [employer] [facility] 3 days/week & goes to Parkinsons group exercise class 2 days/week at [facility] Home Environment Patient Lives With: Self/Alone Home [...] swing decreased, Antalgic gait, Stephanie decreased, Step lengthdecreased Balance Static Standing Balance: Narrow Base of [...] Intervention: Patient was provided supervision, independence during pre- gait/gait training to prevent falls and insure safety. Facilitated proper gait cycle with the use of verbal and visual cues for correction of gait deviations identified in the objective section above. Billing * Evaluation Low Complexity: 1 Unit Therapeutic Exercise Treatment Minutes: 20 Gait Training Treatment Minutes: 5 Total Treatment Time Minutes (timed/untimed): 50 Tejal Willard PT documented in this encounterAkron Children'S Hospital01-20-2023 Miscellaneous Notes* Telephone Encounter - Erika Jean - 07/07/2022 1:39 PM EST Pt returned the call - RN's not available. She reports that it has happened both awake and asleep, and she said it can be pretty hard at times. She said typically it will be a couple of times per week. She's hoping for return call to discuss further recommendation. I did not relay message regarding the full body jerks. * Telephone Encounter - Estrella Her RN - 07/07/2022 12:51 PM EST Message left for Kaylene to contact office to discuss symptom of biting tongue * Telephone Encounter - Sridevi Solo MD - 07/07/2022 10:54 AM EST As far as whole body jerks are concerned it is benign and I am not worried about that. As far as biting the tongue is concerned I would like to find out how often? Awake or sleep? How frequently? How severe is the tongue bite? Please, let me know. This note was created using dictation software. Please, excuse typographical errors. * Telephone Encounter - Erika Tobin [facility] [place] - 07/06/2022 3:47 PM EST NI PHONE NAME OF CALLER: Kaylene RELATIONSHIP [...] how best to manage this. CALLBACK #: [phone] OK TO LEAVE MESSAGE: yes LAST FUV: yesterday with II Electronically signed by Erika Tobin [facility] [place] at 07/06/2022 3:50 PM EST documented in this encounterAkron Children'S Hospital01-19-2023 Miscellaneous Notes* Telephone Encounter - Estrella Her RN - 07/06/2022 10:50 AM EST Clarification of C/L 25-100 mg dose was given to pharmacist per Dr. Solo's OV notes. 2 tablets by mouth TID at 8a, 1p & 6p. * [facility] [facility] [place] M[place]onough - 07/06/2022 9:30 AM EST [facility] called asking for clarification of directions for Sinemet sent yesterday. Si tablet 3 times a day [phone] Electronically signed by [facility] [place] Darryl Mcdonough at 07/06/2022 9:32 AM EST documented in this encounterAk[facility]18-[facility] Instructions* Patient Instructions* Sridevi Solo MD - 07/05/2022 4:30 PM EST Please, increase carbidopa/levodopa 25/100 to 2 tablets at 8 AM, 1 PM and 6 PM Please, physical therapy reassessment Please, follow-up in 6 months documented in this encounterAkron [facility]01-18-[facility]23 History of Present illness Narrative* Sridevi Solo MD - 07/05/2022 4:22 PM EST [facility] - FOLLOW UP EVALUATION Howard Zimmerman MD [address] [facility] [address] [facility] [id number] I had the pleasure of seeing Ms. [...] get up at night to use the bathroom.Other than that, she has no trouble sleeping. She has no problems with her memory. She has visual hallucinations about once a week. She is not concerned about her hallucinations. She stopped taking mirtazapine before bedtime because her family doctor stopped the medicine. She occasionally talks in her sleep. She takes 1.5 tablets of carbidopa-levodopa at 8 am, 1 pm, and 6 pm.Her tremors start right before taking the next [...] get up at night to use the bathroom.Other than that, she has no trouble sleeping. She has no problems with her memory. She has visual hallucinations about once a week. She is not concerned about her hallucinations. She stopped taking mirtazapine before bedtime because her family doctor stopped the medicine. She occasionally talks in her sleep. She takes 1.5 tablets of carbidopa-levodopa at 8 am, 1 pm, and 6 pm.Her tremors start right before taking the next [...] Adult) Pulse 73 Ht 156.8 cm (5' 1.73) Wt 46.3 kg (102 lb) SpO2 95% BMI 18.82 kg/m Orthostatic Vitals: None for this encounter Weight: 46.3 kg (102 lb) Height: 156.8 cm (5' 1.73) No LMP recorded. Patient is postmenopausal. Body mass index is 18.82 kg/m . General Physical Examination: General Exam General Neurological Examination: Neurological Exam Movement Disorders Scales Performed: Assessment and Plan: Assessment Ms. Haynes is a left-handed 87 year old year old female with IPD since 2011. The patient's symptoms are getting worse; she admits end of dose wearing off. We agreed to increasecarbidopa/levodopa 25/100 to 2 tablets 3 times a [...] or around: 01/02/23 Level of service : 02921 (40-54 min). Time spent 45 min on the day of service, which included preparing to see the patient, [id number] patient care, completing clinical documentation, obtaining and/or reviewing separately obtained history, counseling and educating the patient/family/caregiver, ord ering medications, tests, or procedures, and care coordination (not separately reported). Thank you for allowing me to be part of the clinical care of this patient! I look forward to continued participation in the patient s care with you. Please do not hesitate to call with any questions. Sincerely, Sridevi Solo MD I, Jasmyn Stone, attest that this document has been prepared under the direction and in the presence of Sridevi Solo MD on July 05, 2022 at 4:24 PM documented in this encounterAkron [facility]01-18-2023 Progress note Author Rhoda Mercado [facility] July 05, 2022 10:20am Note Date/Time July 05, 2022 1 0:20am [facility] [address] [place] [address] Progress Note - Wound Care 07/05/22 1016 MR#: [id number] Acct: [id number] Name: KAYLENE HAYNES Rep #:[id number] : 1935 87 From: Rhoda Mercado NP [employer] PCP: Dr. Howard Zimmerman MD Status:REG R CR Location: History of Present Illness Date of Service: 07/05/22 Chief Complaint: Follow-up right medial lower leg History of Wound: 87-year-old white female that fell in her bathroom approximately 3 to 4 weeks ago. Lacerated her right leg. Was seen in the emergency room and had suturing done. Dr. Cardenas removed sutures and the wound dehisced. He cultured the wound and found she has staph and has her on doxycycline. She is currently not using anything but a cover dressing. Was told to just rinse it. Progress of Wound: Today the wound measures about half the size again from last week. She should be healed in the next week or 2. Still has some depth. But a lot of skin buds in the base of this wound. We will change her up to finish her off with Promogran to close her wound Subjective Subjective Patient is happy with outcomes Objective Data Objective Data Vital Signs: Vital Signs Temp Pulse Resp BP 96.4 F L 54 L 16 90/37 L 07/05/22 09:40 07/05/22 09:40 06/23/22 09:32 07/05/22 09:40 Weight: 105 lb Body Mass Index (BMI) 19.8 Physical Exam Const oriented x3 General Appearance: cooperative Exam Limitations: no limitations Resp normal respiratory effort and no use of accessory muscles Effort and Inspection: able to speak in complete sentences Cardio regular rate and regular rhythm Rate: regular rate Rhythm: regular rhythm Extremity normal to inspection General Extremity: normal exam except as noted and other findings Other Details:Wound to lateral aspect of left lower leg. Skin no rashes or lesions noted Trauma: laceration Wounds: wounds noted Wound Narrative: Wound to lateral aspect of left lower leg. Appears to be healing well, some slough noted in the wound base. No surrounding erythema, warmth, foul odor, significant drainage. Neuro oriented x3 and CN's II-XII intact bilaterally Gait (Neuro): normal gait Motor Exam: strength 5/5 throughout Psych Appearance: grossly normal Speech: normal speech Thought Content: normal thought content Judgement: judgement good Debridement Note Debridement Note Wound debrided: Right lower leg traumatic wound Type of Debridement: Excisional debridement Anesthesia Used: 5% Lidocaine Gel Depth: Down to and including healthy tissue and in the subcutaneous layer Percentage of wound debrided: 100 Instrument Used: 5mm curette Tissue Removed: Fibrin Severity: Fat Layer Exposed Amount of bleeding with debridement: Mild Bleeding Controlled with: Compression and gauze Patient tolerated procedure: Patient tolerated procedure well Post-Debridement Measurements and Additional Note: Post-Debridement Measurements/Treatment WC - Nurse 1 - General Ulcer Assessment Start: 06/23/22 09:32 Freq: Status: Active Protocol: DAGO Activity Type Activity Date Activity User E-sign Co-sign Detail Recorded Client Recorded Date Recorded By Document 06/23/22 09:32 YOLANDA [id number] 06/23/22 09:34 OYLANDA Document 06/28/22 10:02 AK [id number] 06/28/22 10:08 AK Document 07/05/22 09:40 CO [id number] 07/05/22 09:43 AK 06/23/22 06/28/22 07/05/22 09:32 10:02 09:40 WC - Today's Visit Information Type of service Follow-up Visit Follow-up Visit Follow-up Visit (Physician/SIDE LASTER (Physician/SIDE LASTER (Physician/SIDE LASTER ) ) ) Arrival Mode Ambulatory Ambulatory Ambulatory Patient Identification Verified (Name & Yes Yes Yes ) Patient Requires Transmission-Based No No Precautions Safety Precautions NA Height and Weight Body Mass Index (BMI) 19.8 19.8 19.8 BMI Classification Normal Normal Normal Vital Signs Temperature (97.8 F-99.1 F) 96.3 F L 97.3 F L 96.4 F L Temperature Source Temporal Temporal Temporal Pulse Rate (60-100) 81 62 54 L Pulse Location Monitor Monitor Monitor Respiratory Rate (12-18) 16 Respiratory rate source Observation Blood Pressure (90/60-120/80) 119/79 129/63 H 90/37 L Blood Pressure Mean (mm Hg) 92 85 54 Source Monitor Monitor Monitor Position Semi-Fowlers Blood Pressure Location Left Arm History Since Last Visit- (Skip if this is Patient's initial visit) Have you changed medications since your No No last visit? Any new allergies or adverse reactions No No Had a fall/change in ADL's that may No No increase risk of falls Signs or symptoms of abuse and/or No No neglect since last visit Have you been in the hospital since your No No last visit? Has dressing in place as prescribed Yes Yes Has compression in place as prescribed Yes Yes Has offloadiing in place as prescribed N/A N/A Experienced any changes in pain level or No No management Left Footwear Regular Shoe Regular Shoe Regular Shoe Right Footwear Regular Shoe Regular Shoe Regular Shoe Pain Scale: 0-10 Numeric Is Patient Pain Free? Yes Yes Yes WC - Nurse 1 - General Ulcer Measurement Start: 06/23/22 09:32 Freq: Status: Active Protocol: Activity Type Activity Date Activity User E-sign Co-sign Detail Recorded Client Recorded Date Recorded By Document 06/23/22 09:32 [id number] 06/23/22 09:34 Document 06/28/22 10:02 CO [id number] 06/28/22 10:08 AK Document 07/05/22 09:40 AK [id number] 07/05/22 09:43 AK 06/23/22 06/28/22 07/05/22 09:32 10:02 09:40 Wound Center Nurse 1 #1- R ABDALLA -Combined with other wound No No No -Current Size (cm) - Length 3.5 0.5 0.3 -Current Size (cm) - Width 1.5 1.3 1 -Current Size (cm) - Depth 0.4 0.3 0.2 -Total Square Cm 5.25 0.65 0.3 -Date of Last Picture (Recall this 06/28/22 07/05/22 field) -Photo Taken Yes Yes Yes -Epithelialization Medium 34-66% -Tunneling No No No -Undermining/Tunneling No No No -Circular Undermining No No No -Change in Wound Grade/Stage No No -Exudate Amt Small Large Medium -Exudate Type Serosanguineous Serosanguineous Serosanguineous -Wound Margin Flat & Intact Distinct, Distinct, Outline Outline Attached Attached -Granulation Amt Medium (34-66%) Medium (34-66%) Medium (34-66%) -Granulation Quality [place] -Slough/Fibrin Yes Yes Yes -Necrosis Amt Small (1-33%) Medium (34-66%) Medium (34-66%) -Necrotic Tissue Type Adherent Slough Adherent Slough Adherent Slough -Structure Exposed N/A N/A N/A -Texture (Juanis-wound Skin Appearance) Assessed, No Abnormality, Assessed, Scarring Assessed Scarring -Moisture (Juanis-wound Skin Appearance) Assessed,Dry/ No Abnormality, No Abnormality, Scaly Assessed Assessed -Color (Juanis-wound Skin Appearance) Assessed No Abnormality, No Abnormality, Assessed Assessed -Temperature (Juanis-wound Skin No Abnormality No Abnormality No Abnormality Appearance) (Pt Warm) (Pt Warm) (Pt Warm) -Tenderness on Palpation (Juanis-wound No No No Skin Appearance) -Ulcer Cleansing Rinsed/ Rinsed/ Rinsed/ Irrigated with Irrigated with Irrigated with Saline Saline Saline -Foul Odor after Cleansing No No No -Anesthetic Used 4% Lidocaine 5% Lidocaine 5% Lidocaine Solution Gel Gel Lower Limb Edema Present No Right Calf (cm) 29 29 Right Ankle (cm) 17.5 22 WC - Nurse 2 - General Ulcer CM Notes Start: 06/23/22 09:32 Freq: Status: Active Protocol: Activity Type Activity Date Activity User E-sign Co-sign Detail Recorded Client Recorded Date Recorded By Document 06/23/22 12:25 PL [id number] 06/23/22 12:26 PL Document 06/28/22 10:18 MW [id number] 06/28/22 10:20 MW Document 07/05/22 09:54 MW [id number] 07/05/22 09:56 MW 06/23/22 06/28/22 07/05/22 12:25 10:18 09:54 Wound Center Nurse 2 #1- R ABDALLA -Time 09:34 10:20 09:54 -Correct Patient Yes Yes Yes -Correct Side, Site, Position Yes Yes Yes -Correct Procedure Yes Yes Yes -Procedure Performed Yes Yes -Type of Procedure Debridement Debridement Debridement -Clinical Debridement Subcutaneous Subcutaneous Subcutaneous -Tissue Removed Subcutaneous Subcutaneous Subcutaneous -Post Debridement (cm) - Length 1.5 0.7 0.3 -Post Debridement (cm) - Width 1.8 1.5 1.2 -Post Debridement (cm) - Depth 0.4 0.3 0.2 -Total Square (Post) (cm) 2.70 1.05 0.36 -Area of Debridement (cm) - Length 1.5 0.7 0.3 -Area of Debridement (cm) - Width 1.8 1.5 1.2 -Total Square (Area) (cm) 2.70 1.05 0.36 -Tunneling No No No -Undermining/Tunneling No No No -Circular Undermining No No No -Wound/Ulcer Outcome Not Healed Not Healed Not Healed -Ulcer Cleansing Rinsed/ Rinsed/ Rinsed/ Irrigated with Irrigated with Irrigated with Saline Saline Saline -Foul Odor after Cleansing No No No -Bioengineered Tissue No No No -Bleeding Controlled with Pressure Pressure Pressure -Treatment Response Procedure Procedure Procedure Tolerated Well Tolerated Well Tolerated Well -Offloading No No -Debridement - Subq, 1st 20sq cm Yes Yes Yes Pain Scale: 0-10 Numeric Is Patient Pain Free? Yes Yes Yes WC - Nurse 3 - General Ulcer D/C NN Start: 06/23/22 09:32 Freq: Status: Active Protocol: Activity Type Activity Date Activity User E-sign Co-sign Detail Recorded Client Recorded Date Recorded By Document 06/23/22 09:49 JF [id number] 06/23/22 09:51 JF Document 06/28/22 10:29 MW [id number] 06/28/22 10:31 MW Document 07/05/22 09:57 AK [id number] 07/05/22 09:58 AK 06/23/22 06/28/22 07/05/22 09:49 10:29 09:57 Wound Care Nurse 3 #1- R ABDALLA -Ulcer Cleansing Rinsed/ Rinsed/ Rinsed/ Irrigated with Irrigated with Irrigated with Saline Saline Saline -Foul Odor after Cleansing No No No -Negative Pressure Wound Therapy N/A N/A -Primary Dressing Applied Mepilex Border, Mepilex Border, Mepilex Border, NonAdherent NonAdherent NonAdherent Contact Layer, Contact Layer, Contact Layer, Promogran Promogran Promogran Geovanna Matter -Mepilex Border 1 2 1 -Promogran 1 1 -Promogran Geovanna Matter 1 Right -Lotion applied to leg before No compression wrap -Tubular Bandage Single Layer Single Layer -Size of Tubigrip Used Size C Size D -Size C ($) 1 -Size D ($) 1 -Other single later tubigrip Treatment Response Procedure Tolerated Well Pain Scale: 0-10 Numeric Is Patient Pain Free? Yes Yes Yes Teaching: Wound Center Dressing Your Wound -Person Taught Patient -Teaching Method Discussion, Demonstration -Response to teaching Verbalize understanding WC - Visit Discharge Discharge Condition Stable Stable Stable Ambulatory Status Ambulatory Ambulatory Ambulatory Transportation Private Auto Private Auto Private Auto Accompanied by self Medication Reconcilliation completed & Yes No Yes provided to patient/care provider Clinical Summary of Care Provided Yes Yes Yes Assessment/Plan Assessment/Plan (1) Laceration of leg: CODE(S): S81.819A - Laceration without foreign body, unspecified lower leg, initial encounter (2) Nonhealing nonsurgical wound: CODE(S): T14.8XXA - Other injury of unspecified body region, initial encounter PLAN: Continue to wash right lower leg with antibacterial soap apply Promogran to wound base cover with Adaptic gauze and Ledy with tape Apply Tubigrip to right leg Follow-up in 1 week (3) Infected wound: CODE(S): T14.8XXA - Other injury of unspecified body region, initial encounter; L08.9 - Local infection of the skin and subcutaneous tissue, unspecified 07/05/22 1020 <Electronically signed by Rhoda CULPC> Cosigner Signature (if applicable): CC: ~ Signed [facility] Work Phone: [phone]) 421-376201-13-2023 History of Present illness Narrative* Ramila Barton RT(R) - 06/30/2022 1:30 PM EST Radiology Service Progress Note PATIENT NAME: Kaylene Haynes DATE OF SERVICE: June 30, 2022 TIME: 1:25 PM PATIENT IDENTITY VERIFICATION COMPLETED USING TWO (2) IDENTIFIERS: Name and Date of confirmedby patient verbally. FALL SCREENING: Has the patient [...] 30, 2022 1:25 PM documented in this encounterAkron [facility] Hospital01-11-2023 Progress note Author Rhoda Mercado [facility] June 28, 2022 11:06am Note Date/Time June 28, 2022 1 1:06am [facility] [address] [place] [address] Progress Note - Wound Care 06/28/22 1102 MR#: [id number] Acct: [id number] Name: KAYLENE HAYNES Rep #:[id number] : 1935 87 From: Rhoda Mercado NP [employer] PCP: Dr. Howard Zimmerman MD Status:REG R CR Location: History of Present Illness Date of Service: 06/28/22 Chief Complaint: Follow-up right medial lower leg History of Wound: 87-year-old white female that fell in her bathroom approximately 3 to 4 weeks ago. Lacerated her right leg. Was seen in the emergency room and had suturing done. Dr. Cardenas removed sutures and the wound dehisced. He cultured the wound and found she has staph and has her on doxycycline. She is currently not using anything but a cover dressing. Was told to just rinse it. Progress of Wound: Today the wound measures about half the size it was when she arrived. Still hasa lot of depth. But a lot of skin buds in the base of this wound. We will change her up to finish her off with Promogran to close her wound Subjective Subjective Patient states no pain no swelling no redness. Objective Data Objective Data The wound is doing well patient is just getting impatient with having to come inweekly but it looks good should be closed in a couple of weeks Vital Signs: Vital Signs Temp Pulse Resp BP 97.3 F L 62 16 129/63 H 06/28/22 10:02 06/28/22 10:02 06/23/22 09:32 06/28/22 10:02 Weight: 105 lb Body Mass Index (BMI) 19.8 Lab / Micro Data Attestation: I reviewed the patient's lab results. Physical Exam Const oriented x3 General Appearance: cooperative Exam Limitations: no limitations Resp normal respiratory effort and no use of accessory muscles Effort and Inspection: able to speak in complete sentences Cardio regular rate and regular rhythm Rate: regular rate Rhythm: regular rhythm Extremity normal to inspection General Extremity: normal exam except as noted and other findings Other Details:Wound to lateral aspect of left lower leg. Skin no rashes or lesions noted Trauma: laceration Wounds: wounds noted Wound Narrative: Wound to lateral aspect of left lower leg. Appears to be healing well, some slough noted in the wound base. No surrounding erythema, warmth, foul odor, significant drainage. Neuro oriented x3 and CN's II-XII intact bilaterally Gait (Neuro): normal gait Motor Exam: strength 5/5 throughout Psych Appearance: grossly normal Speech: normal speech Thought Content: normal thought content Judgement: judgement good Debridement Note Debridement Note Wound debrided: There fromRight abdalla trauma Type of Debridement: Excisional debridement Anesthesia Used: 5% Lidocaine Gel Depth: in the subcutaneous layer Percentage of wound debrided: 100 Instrument Used: 5mm curette Tissue Removed: Fibrin and slough Severity: Fat Layer Exposed Amount of bleeding with debridement: Mild Bleeding Controlled with: Compression and gauze Patient tolerated procedure: Patient tolerated procedure well Post-Debridement Measurements and Additional Note: Post-Debridement Measurements/Treatment - Nurse 1 - General Ulcer Assessment Start: 06/23/22 09:32 Freq: Status: Active Protocol: DAGO Activity Type Activity Date Activity User E-sign Co-sign Detail Recorded Client Recorded Date Recorded By Document 06/23/22 09:32 [id number] 06/23/22 09:34 Document 06/28/22 10:02 CO [id number] 06/28/22 10:08 CO 06/23/22 06/28/22 09:32 10:02 - Today's Visit Information Type of service Follow-up Visit Follow-up Visit (Physician/SIDE LASTER (Physician/SIDE LASTER ) ) Arrival Mode Ambulatory Ambulatory Patient Identification Verified (Name & Yes Yes ) Patient Requires Transmission-Based No No Precautions Safety Precautions NA Height and Weight Body Mass Index (BMI) 19.8 19.8 BMI Classification Normal Normal Vital Signs Temperature (97.8 F-99.1 F) 96.3 F L 97.3 F L Temperature Source Temporal Temporal Pulse Rate (60-100) 81 62 Pulse Location Monitor Monitor Respiratory Rate (12-18) 16 Respiratory rate source Observation Blood Pressure (90/60-120/80) 119/79 129/63 H Blood Pressure Mean (mm Hg) 92 85 Source Monitor Monitor Position Semi-Fowlers Blood Pressure Location Left Arm History Since Last Visit- (Skip if this is Patient's initial visit) Have you changed medications since your No last visit? Any new allergies or adverse reactions No Had a fall/change in ADL's that may No increase risk of falls Signs or symptoms of abuse and/or No neglect since last visit Have you been in the hospital since your No last visit? Has dressing in place as prescribed Yes Has compression in place as prescribed Yes Has offloadiing in place as prescribed N/A Experienced any changes in pain level or No management Left Footwear Regular Shoe Regular Shoe Right Footwear Regular Shoe Regular Shoe Pain Scale: 0-10 Numeric Is Patient Pain Free? Yes Yes WC - Nurse 1 - General Ulcer Measurement Start: 06/23/22 09:32 Freq: Status: Active Protocol: Activity Type Activity Date Activity User E-sign Co-sign Detail Recorded Client Recorded Date Recorded By Document 06/23/22 09:32 [id number] 06/23/22 09:34 Document 06/28/22 10:02 CO [id number] 06/28/22 10:08 AK 06/23/22 06/28/22 09:32 10:02 Wound Center Nurse 1 #1- R ABDALLA -Combined with other wound No No -Current Size (cm) - Length 3.5 0.5 -Current Size (cm) - Width 1.5 1.3 -Current Size (cm) - Depth 0.4 0.3 -Total Square Cm 5.25 0.65 -Date of Last Picture (Recall this 06/28/22 field) -Photo Taken Yes Yes -Epithelialization Medium 34-66% -Tunneling No No -Undermining/Tunneling No No -Circular Undermining No No -Change in Wound Grade/Stage No -Exudate Amt Small Large -Exudate Type Serosanguineous Serosanguineous -Wound Margin Flat & Intact Distinct, Outline Attached -Granulation Amt Medium (34-66%) Medium (34-66%) -Granulation Quality [place] -Slough/Fibrin Yes Yes -Necrosis Amt Small (1-33%) Medium (34-66%) -Necrotic Tissue Type Adherent Slough Adherent Slough -Structure Exposed N/A N/A -Texture (Juanis-wound Skin Appearance) Assessed, No Abnormality, Scarring Assessed -Moisture (Juanis-wound Skin Appearance) Assessed,Dry/ No Abnormality, Scaly Assessed -Color (Juanis-wound Skin Appearance) Assessed No Abnormality, Assessed -Temperature (Juanis-wound Skin No Abnormality No Abnormality Appearance) (Pt Warm) (Pt Warm) -Tenderness on Palpation (Juanis-wound No No Skin Appearance) -Ulcer Cleansing Rinsed/ Rinsed/ Irrigated with Irrigated with Saline Saline -Foul Odor after Cleansing No No -Anesthetic Used 4% Lidocaine 5% Lidocaine Solution Gel Lower Limb Edema Present No Right Calf (cm) 29 Right Ankle (cm) 17.5 WC - Nurse 2 - General Ulcer CM Notes Start: 06/23/22 09:32 Freq: Status: Active Protocol: Activity Type Activity Date Activity User E-sign Co-sign Detail Recorded Client Recorded Date Recorded By Document 06/23/22 12:25 PL [id number] 06/23/22 12:26 PL Document 06/28/22 10:18 MW [id number] 06/28/22 10:20 MW 06/23/22 06/28/22 12:25 10:18 Wound Center Nurse 2 #1- R ABDALLA -Time 09:34 10:20 -Correct Patient Yes Yes -Correct Side, Site, Position Yes Yes -Correct Procedure Yes Yes -Procedure Performed Yes Yes -Type of Procedure Debridement Debridement -Clinical Debridement Subcutaneous Subcutaneous -Tissue Removed Subcutaneous Subcutaneous -Post Debridement (cm) - Length 1.5 0.7 -Post Debridement (cm) - Width 1.8 1.5 -Post Debridement (cm) - Depth 0.4 0.3 -Total Square (Post) (cm) 2.70 1.05 -Area of Debridement (cm) - Length 1.5 0.7 -Area of Debridement (cm) - Width 1.8 1.5 -Total Square (Area) (cm) 2.70 1.05 -Tunneling No No -Undermining/Tunneling No No -Circular Undermining No No -Wound/Ulcer Outcome Not Healed Not Healed -Ulcer Cleansing Rinsed/ Rinsed/ Irrigated with Irrigated with Saline Saline -Foul Odor after Cleansing No No -Bioengineered Tissue No No -Bleeding Controlled with Pressure Pressure -Treatment Response Procedure Procedure Tolerated Well Tolerated Well -Offloading No -Debridement - Subq, 1st 20sq cm Yes Yes Pain Scale: 0-10 Numeric Is Patient Pain Free? Yes Yes - Nurse 3 - General Ulcer D/C NN Start: 06/23/22 09:32 Freq: Status: Active Protocol: Activity Type Activity Date Activity User E-sign Co-sign Detail Recorded Client Recorded Date Recorded By Document 06/23/22 09:49 JF [id number] 06/23/22 09:51 Document 06/28/22 10:29 MW [id number] 06/28/22 10:31 MW 06/23/22 06/28/22 09:49 10:29 Wound Care Nurse 3 #1- R ABDALLA -Ulcer Cleansing Rinsed/ Rinsed/ Irrigated with Irrigated with Saline Saline -Foul Odor after Cleansing No No -Negative Pressure Wound Therapy N/A -Primary Dressing Applied Mepilex Border, Mepilex Border, NonAdherent NonAdherent Contact Layer, Contact Layer, Promogran Promogran Geovanna Matter -Mepilex Border 1 2 -Promogran 1 -Promogran Geovanna Matter 1 Right -Lotion applied to leg before No compression wrap -Tubular Bandage Single Layer -Size of Tubigrip Used Size C -Size C ($) 1 -Other single later tubigrip Treatment Response Procedure Tolerated Well Pain Scale: 0-10 Numeric Is Patient Pain Free? Yes Yes Teaching: Wound Center Dressing Your Wound -Person Taught Patient -Teaching Method Discussion, Demonstration -Response to teaching Verbalize understanding WC - Visit Discharge Discharge Condition Stable Stable Ambulatory Status Ambulatory Ambulatory Transportation Private Auto Private Auto Accompanied by self Medication Reconcilliation completed & Yes No provided to patient/care provider Clinical Summary of Care Provided Yes Yes Assessment/Plan Assessment/Plan (1) Laceration of leg: CODE(S): S81.819A - Laceration without foreign body, unspecified lower leg, initial encounter (2) Nonhealing nonsurgical wound: CODE(S): T14.8XXA - Other injury of unspecified body region, initial encounter PLAN: Continue to wash right lower leg with antibacterial soap apply Promogran to wound base cover with Adaptic gauze and Ledy with tape Apply Tubigrip to right leg Follow-up in 1 week (3) Infected wound: CODE(S): T14.8XXA - Other injury of unspecified body region, initial encounter; L08.9 - Local infection of the skin and subcutaneous tissue, unspecified 06/28/22 1106 <Electronically signed by Rhoda Mercado NP [employer]-C> Cosigner Signature (if applicable): CC: ~ Signed [facility] Work Phone: 1(466) 219-827701-06-2023 Progress note Author Paige May [facility] June 23, 2022 1:02pm Note Date/Time June 23, 2022 1: 02pm [facility] [address] [place] [address] Progress Note - Wound Care 06/23/22 1252 MR#: [id number] Acct: [id number] Name: KAYLENE HAYNES Rep #:[id number] : 1935 87 From: Paige BRUNSON PA PCP: Dr. Howard Zimmerman MD Status:REG R CR Location: History of Present Illness Date of Service: 06/23/22 Chief Complaint: Follow-up right medial lower leg History of Wound: 87-year-old white female that fell in her bathroom approximately 3 to 4 weeks ago. Lacerated her right leg. Was seen in the emergency room and had suturing done. Dr. Cardenas removed sutures and the wound dehisced. He cultured the wound and found she has staph and has her on doxycycline. She is currently not using anything but a cover dressing. Was told to just rinse it. Subjective Subjective Patient reports she is doing well overall. No issues with dressing changes. She has been cleansing with antibacterial soap, applying Geovanna covered by adaptic and foam dressing as directed. No significant drainage, foul odor, increasing pain, N/V, F/C. She feels the wound is improving. Objective Data Objective Data Vital Signs: Vital Signs Temp Pulse Resp BP 96.3 F L 81 16 119/79 06/23/22 09:32 06/23/22 09:32 06/23/22 09:32 06/23/22 09:32 Weight: 105 lb Body Mass Index (BMI) 19.8 Charges/Coding Wound Center CF Procedures [id number]: [id number] RMVL DEVITAL TIS 20 CM/< Multi Select Codes Wound Center CF Procedures [id number]: [id number] RMVL DEVITAL TIS 20 CM/< Physical Exam Const oriented x3 General Appearance: cooperative Exam Limitations: no limitations Resp normal respiratory effort and no use of accessory muscles Effort and Inspection: able to speak in complete sentences Cardio regular rate and regular rhythm Rate: regular rate Rhythm: regular rhythm Extremity normal to inspection General Extremity: normal exam except as noted and other findings Other Details:Wound to lateral aspect of left lower leg. Skin no rashes or lesions noted Trauma: laceration Wounds: wounds noted Wound Narrative: Wound to lateral aspect of left lower leg. Appears to be healing well, some slough noted in the wound base. No surrounding erythema, warmth, foul odor, significant drainage. Neuro oriented x3 and CN's II-XII intact bilaterally Gait (Neuro): normal gait Motor Exam: strength 5/5 throughout Psych Appearance: grossly normal Speech: normal speech Thought Content: normal thought content Judgement: judgement good Debridement Note Debridement Note Wound debrided: Right lower leg ulcer from trauma Type of Debridement: Excisional debridement Anesthesia Used: 5% Lidocaine Gel Depth: in the subcutaneous layer Percentage of wound debrided: 100 Instrument Used: 3mm curette Tissue Removed: Slough and fibrin Severity: Fat Layer Exposed Amount of bleeding with debridement: Mild Bleeding Controlled with: Compression and gauze Patient tolerated procedure: Patient tolerated procedure well Post-Debridement Measurements and Additional Note: Post-Debridement Measurements/Treatment - Nurse 1 - General Ulcer Assessment Start: 06/23/22 09:32 Freq: Status: Active Protocol: DAGO Activity Type Activity Date Activity User E-sign Co-sign Detail Recorded Client Recorded Date Recorded By Document 06/23/22 09:32 YOLANDA [id number] 06/23/22 09:34 YOLANDA 06/23/22 09:32 - Today's Visit Information Type of service Follow-up Visit (Physician/SIDE LASTER ) Arrival Mode Ambulatory Patient Identification Verified (Name & Yes ) Patient Requires Transmission-Based No Precautions Height and Weight Body Mass Index (BMI) 19.8 BMI Classification Normal Vital Signs Temperature (97.8 F-99.1 F) 96.3 F L Temperature Source Temporal Pulse Rate (60-100) 81 Pulse Location Monitor Respiratory Rate (12-18) 16 Respiratory rate source Observation Blood Pressure (90/60-120/80) 119/79 Blood Pressure Mean (mm Hg) 92 Source Monitor Position Semi-Fowlers Blood Pressure Location Left Arm History Since Last Visit- (Skip if this is Patient's initial visit) Left Footwear Regular Shoe Right Footwear Regular Shoe Pain Scale: 0-10 Numeric Is Patient Pain Free? Yes - Nurse 1 - General Ulcer Measurement Start: 06/23/22 09:32 Freq: Status: Active Protocol: Activity Type Activity Date Activity User E-sign Co-sign Detail Recorded Client Recorded Date Recorded By Document 06/23/22 09:32 JF [id number] 06/23/22 09:34 JF 06/23/22 09:32 Wound Center Nurse 1 #1- R ABDALLA -Combined with other wound No -Current Size (cm) - Length 3.5 -Current Size (cm) - Width 1.5 -Current Size (cm) - Depth 0.4 -Total Square Cm 5.25 -Photo Taken Yes -Epithelialization Medium 34-66% -Tunneling No -Undermining/Tunneling No -Circular Undermining No -Exudate Amt Small -Exudate Type Serosanguineous -Wound Margin Flat & Intact -Granulation Amt Medium (34-66%) -Granulation Quality Red -Slough/Fibrin Yes -Necrosis Amt Small (1-33%) -Necrotic Tissue Type Adherent Slough -Structure Exposed N/A -Texture (Juanis-wound Skin Appearance) Assessed, Scarring -Moisture (Juanis-wound Skin Appearance) Assessed,Dry/ Scaly -Color (Juanis-wound Skin Appearance) Assessed -Temperature (Juanis-wound Skin No Abnormality Appearance) (Pt Warm) -Tenderness on Palpation (Juanis-wound No Skin Appearance) -Ulcer Cleansing Rinsed/ Irrigated with Saline -Foul Odor after Cleansing No -Anesthetic Used 4% Lidocaine Solution Lower Limb Edema Present No WC - Nurse 2 - General Ulcer CM Notes Start: 06/23/22 09:32 Freq: Status: Active Protocol: Activity Type Activity Date Activity User E-sign Co-sign Detail Recorded Client Recorded Date Recorded By Document 06/23/22 12:25 PL [id number] 06/23/22 12:26 PL 06/23/22 12:25 Wound Center Nurse 2 #1- R ABDALLA -Time 09:34 -Correct Patient Yes -Correct Side, Site, Position Yes -Correct Procedure Yes -Procedure Performed Yes -Type of Procedure Debridement -Clinical Debridement Subcutaneous -Tissue Removed Subcutaneous -Post Debridement (cm) - Length 1.5 -Post Debridement (cm) - Width 1.8 -Post Debridement (cm) - Depth 0.4 -Total Square (Post) (cm) 2.70 -Area of Debridement (cm) - Length 1.5 -Area of Debridement (cm) - Width 1.8 -Total Square (Area) (cm) 2.70 -Tunneling No -Undermining/Tunneling No -Circular Undermining No -Wound/Ulcer Outcome Not Healed -Ulcer Cleansing Rinsed/ Irrigated with Saline -Foul Odor after Cleansing No -Bioengineered Tissue No -Bleeding Controlled with Pressure -Treatment Response Procedure Tolerated Well -Debridement - Subq, 1st 20sq cm Yes Pain Scale: 0-10 Numeric Is Patient Pain Free? Yes WC - Nurse 3 - General Ulcer D/C NN Start: 06/23/22 09:32 Freq: Status: Active Protocol: Activity Type Activity Date Activity User E-sign Co-sign Detail Recorded Client Recorded Date Recorded By Document 06/23/22 09:49 YOLANDA [id number] 06/23/22 09:51 YOLANDA 06/23/22 09:49 Wound Care Nurse 3 #1- R ABDALLA -Ulcer Cleansing Rinsed/ Irrigated with Saline -Foul Odor after Cleansing No -Primary Dressing Applied Mepilex Border, NonAdherent Contact Layer, Promogran Geovanna Matter -Mepilex Border 1 -Promogran Geovanna Matter 1 Right -Tubular Bandage Single Layer -Size of Tubigrip Used Size C -Size C ($) 1 Pain Scale: 0-10 Numeric Is Patient Pain Free? Yes WC - Visit Discharge Discharge Condition Stable Ambulatory Status Ambulatory Transportation Private Auto Medication Reconcilliation completed & Yes provided to patient/care provider Clinical Summary of Care Provided Yes Assessment/Plan Assessment/Plan (1) Nonhealing nonsurgical wound: CODE(S): T14.8XXA - Other injury of unspecified body region, initial encounter PLAN: Plan Patient usually sees Rhoda Vernon who is on vacation, I saw her this week inthe interim. Patient tolerated debridement well. Will continue with current management: wash with antibacterial soap, apply geovanna, cover with adaptic and foam dressing, single layer tubigrip. No signs of active infection. She will continue with good compression and elevation when at rest. She will return to the [facility] in 1 week. She will return sooner or present to the ED should any signs or symptoms of infection arise. 06/23/22 1302 <Electronically signed by Paige BRUNSON> Cosigner Signature (if applicable): CC: ~ Signed [facility] Work Phone: 1(284) 724-772811-25-2022 Hospital Discharge instructions Additional Instructions Please have your sutures removed from your right lower leg in 12 to 14 days. [facility] Work Phone: 1(909) 333-614110-18-2022 Miscellaneous Notes* Telephone Encounter - Myrna Lees RN - 04/04/2022 9:59 AM EDT Order pending. Myrna Lees RN * Telephone Encounter - Ligia Monson - 04/04/2022 9:49 AM EDT Patient is scheduled for mammogram screening on 06/30/2022. Requesting updated order, current orderexpires 05/02/2022. Thank you. documented [facility] Miscellaneous Notes* Telephone Encounter - Shannan Aguirre - 03/08/2022 11:27 AM EDT Patient called, went over notes from Dr. Brooks with her in regards to her CT results. Patient will reach out to Dr. Zimmerman. * Telephone Encounter - Lamar Osorio LPN - 03/08/2022 9:49 AM EDT Left message to return call to clinical. Faxed note and CT result to Dr Zimmerman. .me * Telephone Encounter - Bart Brooks DO - 03/08/2022 8:13 AM EDT Can let her know that the CT [...] to fully evaluate and also may ultimately benefitfrom a pulmonary referral but I will leave that to Dr. Zimmerman to decide. Bart Brooks DO documented in this encounterAkron [facility]08-30-2022 Miscellaneous Notes* Telephone Encounter - Karen Saenz LPN - 02/14/2022 1:35 PM EDT Spoke with pt. Informed she can have CT of abd/pelvis with oral but without IV contrast. Pt. Agreed , prefers to be scheduled any Sunday afternoon, Sunday afternoon, or anytime on a Sunday. PSS please schedule and contact pt. Karen Saenz LPN * Telephone Encounter - Bart Brooks DO - 02/14/2022 12:41 PM EDT Can let her know that her blood counts are stable. Final results of today's testing indicate she can have a CT scan of the abdomen pelvis with oral but without IV contrast to further assess the hernia. Please schedule this. Bart Brooks DO documented in this encounterAkron [facility]08-30-2022 History of Present illness Narrative* Bart Brooks DO - 02/14/2022 11:52 AM EDT Diagnosis: 1) Lymphoproliferative disorder. HPI: The patient is a 86 yo female whom I saw in [facility] 2006for [facility]topenia following an admission for sepsis. Bone marrow biopsy demonstrated a normocellularbone marrow with no evidence of myelodysplasia, lymphoma [...] definite evidence of malignancy. 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 Received [address] 12/2011 showed mild/borderline adenopathy. Presents for follow up. Interim history: She continues to participate in [employer] 3 times a week and Delay the [...] if she pushes on it but otherwise nopain. No unusual bleeding or unexplained bruising. PMH, [...] temperature source Temporal, height 156.8 cm (5' 1.75), weight 46.3 kg (102 lb). Frail-appearing and in no acute distress. EYES: Sclerae are anicteric bilaterally. LYMPHATIC: There is no palpable cervical, supraclavicular, axillary or inguinal adenopathy. RESPIRATORY: Inspiratory breath sounds are of normal intensity in all cary. CARDIOVASCULAR: Rhythm is irregular. ABDOMEN: The abdomen is nondistended. There is a small reducible hernia in the upper midline of theabdomen. Extremities: Free of edema. SKIN: No jaundice or rash. No petechiae. NEUROLOGIC: aeroplane pilot II-XII are grossly intact. No focal motor [...] (H) 8.64 (H) 6.05 (H) 6.84 (H) Alb[place]arle% % 6 6.0 7.0 11.0 9.0 Abs [place]le <0.87 k/uL 0.75 0.97 (H) 1.08 (H) 1.51 (H) 1.38 (H) Eosin% % 6 4.0 2.0 3.0 3.0 Abs Eosin <0.46 k/uL 0.75 (H) 0.64 (H) 0.31 0.41 0.44 Baso% % 1 2.0 2.0 0.0 1.0 Abs Baso <0.11 k/uL 0.12 (H) 0.32 (H) 0.31 (H) 0.00 0.43 (H) ANC(includeSEG+BAND) k/uL 5.96 5.09 5.78 Acanthocyte Few Few Few Few Love Stuttgart Bodies Occasional Ovalocytes Few Few Few Few Few Target Cells Few Few Few Few Platelet Estimate Platelet estimate adequate Platelet estimate adequate Platelet estimate adequate Platelet estimate adequate Adequate Diff Type Manual Diff Manual Diff Manual Diff Tear Drop Few Abs Lym 1.00 - 4.00 K/uL 5.99 (H) Anisocytosis Present RBC Fragments None Seen Few (A) WBC, Chitra 3.70 - 11.00 k/uL 13.90 (H) 11.69 (H) 14.70 (H) RBC, Chitra 3.90 - 5.20 m/uL 4.07 4.20 4.11 Hemoglobin, Chitra 11.5 - 15.5 g/dL 12.3 12.7 12.5 Hematocrit, Chitra 36.0 - 46.0 % 38.2 38.0 37.6 MCV, Sprague 80.0 - 100.0 fL 93.9 90.5 91.5 MCH, Sprague 26.0 - 34.0 pg 30.2 30.2 30.4 MCHC, Sprague 30.5 - 36.0 g/dL 32.2 33.4 33.2 RDW, Chitra 11.5 - 15.0 % 13.5 14.2 14.7 Platelet Cnt, Sprague 150 - 400 k/uL 297 293 317 MPV, Sprague 9.0 - 12.7 fL 10.7 10.5 9.6 Neut%, Chitra % 50 41.4 48 Lymp%, Sprague % 40 41.7 37 Albemarle%, Chitra % 5 14.0 12 Eos%, Chitra % 2 1.8 1 Baso%, Sprague % 3 1.1 2 Abs Neut, Chitra 1.45 - 7.50 k/uL 6.95 4.83 7.06 Abs Lymp, Chitra 1.00 - 4.00 k/uL 5.56 (H) 4.88 (H) 5.44 (H) Abs Alb[place]arle, Chitra <0.87 k/uL 0.70 1.64 (H) 1.76 (H) Abs Eos, Sprague <0.46 k/uL 0.28 0.21 0.15 Abs Baso, Chitra <0.11 k/uL 0.42 (H) 0.13 (H) 0.29 (H) RBC Morph, Chitra Few 1+ Platelet Est, Sprague Platelet estimate adequate Platelet estimate adequate ASSESSMENT/PLAN: [...] care. Bart Brooks DO documented in this encounterAkron [facility]06-20-2022 Miscellaneous Notes* Telephone Encounter - Daja Lambert LPN - 12/05/2021 1:36 PM EDT Detailed message left on patient's identified VM. Patient to contact office for any questions. Daja Lambert LPN * Telephone Encounter - Bart Brooks DO - 12/05/2021 1:22 PM EDT Blood counts are not much different. Hgb and platelets remain normal. Okay to follow up as scheduled. Bart Brooks DO * Telephone Encounter - Daja Lambert LPN - 12/05/2021 10:37 AM EDT Labs printed and placed in Dr. Brooks's mailbox for review. Daja Lambert LPN * Telephone Encounter - Myrna Gandhi - 12/05/2021 9:56 AM EDT Pt stated she had labs done at [facility] 11/21/[address] Zimmerman. He noted that she had elevated white blook count and may want to be seen sooner by Dr Brooks. Please advise pt. [facility] in this encounter[facility]04-04-2022 Instructions* Patient Instructions* Sridevi Solo MD - 09/19/2021 3:15 PM EDT Please, increase carbidopa/levodopa 25/100 to 1.5 tablets 3 times a day at 8 AM, 1 PM and 6 PM Please, continue taking mirtazapine 7.5 mg at bedtime Please, think about re-visiting PD-specific physical therapy locally Please, follow-up in six months documented in this encounterAkron [facility]04-04-2022 History of Present illness Narrative* Sridevi Solo MD - 09/19/2021 2:54 PM EDT [facility] - FOLLOW UP EVALUATION Howard Zimmerman MD [address] [address] I had the pleasure of seeing Ms. [...] PROMIS-10 Office Visit from 09/19/2021 [facility] 50.8 [facility] [...] Adult) Pulse 86 Ht 158 cm (5' 2.21) Wt 48.5 kg (107 lb) SpO2 97% [...] Parkinson's Medication Schedule: Level of service : 44252 (40-54 min). Time spent 45 min on the day of service, which included preparing to see the patient, [id number] patient care, completing clinical documentation, obtaining and/or [...] to call with any questions. Sincerely, Sridevi Solo MD documented in this encounterAkron [facility]12-10-2019 History of Present illness Narrative* Bonnie Quinteros RN - 05/27/2019 9:07 AM EST Pt sitting up and tolerating po well * Bonnie Quinteros RN - 05/27/2019 8:34 AM EST PATIENT RECEIVED FROM OR VIA CART. SPONT RESP. WITH SINKER WINDER IN ATTENDANCE. PLACED ON MONITOR. MONITOR ALARMS ON IN PACU. RT arm elevated and ice pack applied * Jenny De Santiago RN - 05/27/2019 7:12 AM EST Timeout performed prior to regional block procedure. Dr Kenyon in attendance. documented in this encounterSUMMA Work Phone: Consult note Author Franca Bernard [facility] January 16, 2023 1:43pm Note Date/Time January 16, 2023 1:4 3pm [facility] Medical Records Department [address] [place] [id number] Counseling Note - Pharmacy 01/16/23 1343 MR#: [id number] Acct: [id number] Name: KAYLENE HAYNES LY Rep #:[id number] : 1935 87 From: Franca Bernard PCP: Dr. Howard Zimmerman MD Status:ADM I NO Y Location: [place] [address] Pharmacy [place] Med Reconciliation Pharmacy Service has performed discharge medication reconciliation for this patient. The patient's discharge medication list was reviewed for discrepancies and discrepancies were resolved. Medications at Discharge Home Medications ascorbic acid (vitamin C) 500 mg capsule 1,000 mg PO QDAY vitamin 12/31/17 multivitamin 1 tab PO DAILY vitamin 11/20/18 psyllium husk 3.4 gram/5.4 gram oral powder (Metamucil) 1 tsp PO DAILY PRN Constipation 11/23/21 carbidopa 25 mg-levodopa 100 mg tablet 2 tab PO TID parkinsons 01/05/23 albuterol sulfate 90 mcg/actuation aerosol inhaler 2 puff inhalation Q4H PRN shortness of breath or wheezing 01/15/23 metoprolol tartrate 25 mg tablet 12.5 mg PO Q12H blood pressure 01/15/23 01/16/23 1343 <Electronically signed by Franca Bernard> Date _ Franca Bernard Cosigner Signature (if applicable): Date CC: ~ Signed [facility] Work Phone: Evaluation + Plan note No data available for this section [facility] Evaluation note* Diagnosis Parkinson's disease (HCC)- Primary Paralysis agitans Other insomnia Abnormality of gait 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 [facility]* Diagnosis Onset Date Resolution Status Essential hypertension chron ic History of atrial myxoma chr onic Hyperlipidemia chronic Nonrheumatic mitral (valve) prolapse chronic Nonrheumatic mitral valve regurgitation chronic Nonrheumatic tricuspid valve regurgitation chronic Premature atrial contractions chronic Premature ventricular contraction chronic [facility] Work Phone: Evaluation note* 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 [facility] 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 Hernia of abdominal wall Ventral hernia, unspecified, without mention of obstruction or gangrene documented [facility] encounter [facility]* Diagnosis Onset Date Resolution Status Acute bronchitis, unspecified acute Acute sinusitis, unspecified acute Contact with and (suspected) exposure to other viral communicable diseases acute [facility] Work Phone: Evaluation note* Diagnosis Encounter for screening mammogram for malignant neoplasm of breast- Primary Other screening mammogram documented [facility] this encounter [facility]* Diagnosis Onset Date Resolution Status Acute bronchitis, unspecified acute Acute sinusitis, unspecified acute Contact with and (suspected) exposure to other viral communicable diseases acute Infected wound acute Laceration of leg acute Nonhealing nonsurgical wound acute [facility] Work Phone: Evaluation note* Diagnosis Parkinson's disease (HCC)- Primary Paralysis agitans Abnormality of gait 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 [facility]* 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 [facility]* Diagnosis Onset Date Resolution Status Acute bronchitis, unspecified acute Acute sinusitis, unspecified acute Contact with and (suspected) exposure to other viral communicable diseases acute Infected wound acute Laceration of leg acute Nonhealing nonsurgical wound acute Infected wound acute Laceration of leg acute Nonhealing nonsurgical wound acute [facility] Work Phone: Evaluation note* Diagnosis 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 Parkinson's disease (HCC) Paralysis agitans Abnormality of gait 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 [facility]* Diagnosis Onset Date Resolution Status Acute bronchitis, unspecified acute Acute sinusitis, unspecified acute Contact with and (suspected) exposure to other viral communicable diseases acute Infected wound acute Laceration of leg acute Nonhealing nonsurgical wound acute Infected wound acute Laceration of leg acute Nonhealing nonsurgical wound acute Infected wound acute Laceration of leg acute Nonhealing nonsurgical wound acute [facility] Work Phone: Evaluation note* 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 documented in this encounter [facility] note* Diagnosis Onset Date Resolution Status Infected wound acute Laceration of leg acute Nonhealing nonsurgical wound acute Infected wound acute Laceration of leg acute Nonhealing nonsurgical wound acute Infected wound acute Laceration of leg acute Nonhealing nonsurgical wound acute [facility] Work Phone: Evaluation note* Diagnosis Onset Date Resolution Status Infected wound acute Laceration of leg acute Nonhealing nonsurgical wound acute Infected wound acute Laceration of leg acute Nonhealing nonsurgical wound acute [facility] Work Phone: Evaluation noteNo assessment information available [facility] Work Phone: Evaluation note* Diagnosis Onset Date Resolution Status Essential hypertension chron ic Dysarthria acute Parkinson's disease acute Syncope acute [facility] Work Phone: Evaluation note* 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 [facility]* Diagnosis Onset Date Resolution Status Essential hypertension chron ic Parkinson's disease acute Dysarthria resolved [facility] Work Phone: Evaluation note* Diagnosis Parkinson's disease without dyskinesia or fluctuating manifestations- Primary [facility]* Diagnosis Encounter for screening mammogram for malignant neoplasm of breast Other screening mammogram documented [facility] this [facility]* Diagnosis Onset Date Resolution Status Parkinson's disease acute Dysarthria resolved [facility] Work Phone: Evaluation note* Diagnosis Onset Date Resolution Status Brain TIA acute [facility] Work Phone: Evaluation note* Diagnosis Onset Date Resolution Status Brain TIA resolved [facility] Work Phone: Evaluation note* 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 [facility] 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 documented [facility] this [facility]* Diagnosis Onset Date Resolution Status Brain TIA resolved Anemia acute Debility acute Falls acute Generalized weakness acute Leukocytosis acute Parkinson's disease acute [facility] Work Phone: Evaluation note* Diagnosis Onset Date Resolution Status Brain TIA acute Debility acute Generalized weakness acute Leukocytosis resolved Acute encephalopathy acute Brain TIA acute Debility acute GERD (gastroesophageal reflux disease) acute Orthostatic hypotension acut e Syncope acute Hyperlipidemia chronic History of atrial myxoma chr onic Hyperlipidemia chronic Premature atrial contractions chronic [facility] Work Phone: Evaluation note* Diagnosis Parkinson's disease 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)- Primary documented in this encounter [facility] note* Diagnosis Onset Date Resolution Status Brain TIA acute Debility acute Generalized weakness acute Leukocytosis resolved Brain TIA acute Debility acute GERD (gastroesophageal reflux disease) acute Orthostatic hypotension acut e Hyperlipidemia chronic Acute encephalopathy resolve d Syncope resolved History of atrial myxoma chr onic Hyperlipidemia chronic Premature atrial contractions [facility] Work Phone: Evaluation note* Diagnosis Onset Date Resolution Status Debility acute Generalized weakness acute Leukocytosis resolved Brain TIA acute Debility acute GERD (gastroesophageal reflux disease) acute Orthostatic hypotension acut e Hyperlipidemia chronic Acute encephalopathy resolve d Syncope resolved History of atrial myxoma chr onic Hyperlipidemia chronic Premature atrial contractions [facility] Work Phone: Evaluation note* Diagnosis Parkinson's disease 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) documented in this encounter [facility] note* Diagnosis Parkinson's disease 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)- Primary Neurogenic orthostatic hypotension (HCC) [facility]* Instructions* Brandon Faye MD - 05/27/2019 OK to move fingers and thumb within confined of splint Ice and elevate for pain control OK to take tylenol/ibuprofen for pain relief Keep bandage on until first post operative appointment documented in this [facility] Work Phone: Hospital Discharge instructions No data available for this section [facility] Hospital Discharge instructions Additional Instructions Elevate your right hand to decrease pain and swelling. Gently clean it daily with soap and water or peroxide and water. Apply antibiotic ointment. Stitches can come out in no less than 10 and I would do 14 days. Watch for any signs of infection such as redness, pus, fever or streaks if seen return. Tylenol for pain. Call and follow-up with primary care physician this week to be reevaluated [facility] Work Phone: Progress note No data available for this section [facility] Reason for referral (narrative)* Diagnostic Procedure Only (Routine) - Authorized Specialty Diagnoses / Procedures Referred By Aron t Referred To Contact [facility] Diagnoses Encounter for screening mammogram for malignant neoplasm of breast Procedures GLEN SCREENING SCREENING MAMMOGRAPHY BI 2-VIEW BREAST INC Irasema Camacho MD [address] [place] [address] [facility] [address] [place] [address] Referral ID Status Reason Start Date Expiration Date Visits Requested Visits Authorized [id number] Authorized Auto-Generat ed Referral 05/04/2023 1 1 [facility] for referral (narrative)* Diagnostic Procedure Only (Routine) - Closed Specialty Diagnoses / Procedures Referred By Aron t Referred To Contact [facility] Diagnoses Encounter for screening mammogram for malignant neoplasm of breast Procedures GLEN SCREENING SCREENING MAMMOGRAPHY BI 2-VIEW BREAST INC Irasema Camacho MD [address] [place] [address] [facility] [address] [place] [address] Referral ID Status Reason Start Date Expiration Date V isits Requested Visits Authorized [id number] Closed Auto-Generate d Referral 04/04/2022 05/04/2023 1 1 [facility] for referral (narrative)No [facility] for [facility] Reason for visit Narrative* Diagnostic Procedure Only (Routine) - Closed Specialty Diagnoses / Procedures Referred By Aron ramos Referred To Contact [facility] Diagnoses Encounter for screening mammogram for malignant neoplasm of breast Procedures GLEN SCREENING SCREENING MAMMOGRAPHY BI 2-VIEW BREAST INC Irasema Camacho MD [address] [place] [address] [facility] [address] [place] [address] Referral ID Status Reason Start Date Expiration Date V isits Requested Visits Authorized [id number] Closed Auto-Generate d Referral 04/04/2022 05/04/2023 1 1 [facility] Discharge Instructions * Instructions* Fariba Ponce [...] please call your surgeon. Please bring your [employer] [facility] Information folder on the day of surgery. Please bring a photo ID and insurance information Marcelle: ? Enter through Door number [phone] ? Registration department is located here ? Patient will be escorted to [facility] ? [place] does not open before 6am documented in this encounter History of Present Illness * Ramses Aguiar - 2019 1:30 PM EST Labs obtained on first attempt with 22 gauge needle at R ACF site, patient tolerated well, site benign. documented in this encounter Advance Directives No Advanced Directives Records FoundDocuments on File Type Date Recorded Patient Cook'S Assistant Expl anation Advance Directives and Living Will Power of Twister Tender Paper Latest Code Status on File Code Status Date Activated Date Inactivated Comments Full Code 05/27/2019 6:25 AM Advance Directive Response Recorded Date/ Time Living Will No June 17 2:45pm Power of Twister Tender Paper Yes June 17, 2019 2:45pm Advance Directive Response Recorded Date/ Time Name of Medical Power of Twister Tender Paper Belkis Haynes April 14, 2022 1:37pm Living Will Yes April 14 1:37pm Power of Twister Tender Paper Yes April 14, 2022 1:37pm Advance Directive Response Recorded Date/ Time Name of Medical Power of Twister Tender Paper Belkis Ivy April 14, 2022 12:37pm Name of Medical Power of Twister Tender Paper elsa- daughter in law May 12, 2022 12:01p m Living Will Yes May 12, 12:01pm Power of Twister Tender Paper Yes May 12, 2022 12:01pm Advance Directive Response Recorded Date/ Time Name of Medical Power of Twister Tender Paper elsa- daughter in law May 12, 2022 1:01pm Living Will Yes May 12, 1:01pm Power of Twister Tender Paper Yes May 12, 2022 1:01pm Advance Directive Response Recorded Date/ Time Living Will Yes May 12, 1:01pm Power of Twister Tender Paper Yes May 12, 2022 1:01pm Advance Directive Response Recorded Date/ Time Name of Medical Power of Twister Tender Paper ELVIRA HAYNES January 15, 2023 1:25pm Living Will Yes January 15, 2023 1:25pm Power of Twister Tender Paper Yes January 15 1:25pm Advance Directive Response Recorded Date/ Time Name of Medical Power of Twister Tender Paper ELVIRA HAYNES January 15, 2023 12:25pm Living Will Yes January 15, 2023 12:25pm Power of Twister Tender Paper Yes January 15 12:25pm Advance Directive Response Recorded Date/ Time Living Will Yes January 15, 2023 12:25pm Power of Twister Tender Paper Yes January 15 12:25pm Advance Directive Response Recorded Date/ Time Name of Medical Power of Twister Tender Paper belkis haynes June 28, 2023 12:42pm Living Will Yes June 28 12:42pm Power of Twister Tender Paper Yes June 28, 2023 12:42pm Advance Directive Response Recorded Date/ Time Name of Medical Power of Twister Tender Paper Nicole Haynes June 28, 2023 7:34pm Living Will Yes June 28 7:34pm Power of Twister Tender Paper Yes June 28, 2023 7:34pm Advance Directive Response Recorded Date/ Time Name of Medical Power of Twister Tender Paper Nicole Haynes June 28, 2023 7:34pm Name of Medical Power of Twister Tender Paper Mckay (daughter in law) July 28, 2023 9:19am Living Will Yes July 28 9:19am Power of Twister Tender Paper Yes July 28, 2023 9:19am Advance Directive Response Recorded Date/ Time Name of Medical Power of Twister Tender Paper Nicole Haynes June 28, 2023 8:34pm Name of Medical Power of Twister Tender Paper Mckay (daughter in law) July 28, 2023 10:19am Name of Medical Power of Twister Tender Paper son September 08, 2023 10:17am Living Will Yes September 08, 2023 10:17am Power of Twister Tender Paper Yes September 07 10:17am Advance Directive Response Recorded Date/ Time Name of Medical Power of Twister Tender Paper Nicole Haynes June 28, 2023 8:34pm Name of Medical Power of Twister Tender Paper Mckay (daughter in law) July 28, 2023 10:19am Name of Medical Power of Twister Tender Paper Carolann haynes September 08, 2023 2:45pm Living Will Yes September 08, 2023 2:45pm Power of Twister Tender Paper Yes September 07 2:45pm Advance Directive Response Recorded Date/ Time Name of Medical Power of Twister Tender Paper Nicole Hanyes June 28, 2023 8:34pm Name of Medical Power of Twister Tender Paper Mckay (daughter in law) July 28, 2023 10:19am Name of Medical Power of Twister Tender Paper Belkis Zody primary; alternative sonsElvira and Gonzalez Haynes September 18, 2023 2:51pm Living Will No September 18, 2023 2:51pm Power of Twister Tender Paper Yes September 17 2:51pm Name of Medical Power of Twister Tender Paper Carolann haynes September 08, 2023 2:45pm Advance Directive Response Recorded Date/ Time Name of Medical Power of Twister Tender Paper Mckay (daughter in law) July 28, 2023 10:19am Name of Medical Power of Twister Tender Paper Belkis Zody primary; alternative sonsElvira and Gonzalez Haynes September 18, 2023 2:51pm Living Will No September 18, 2023 2:51pm Power of Twister Tender Paper Yes September 17 2:51pm Name of Medical Power of Twister Tender Paper Carolann zoelli September 08, 2023 2:45pm Summary Purpose Family History No Family History Records Found Relationship Condition Age at Onset Recorded Date/T jocelyn father Cardiac disease Unknown Congestive heart failure Unknown Chief Complaint and Reason for Visit Chief Complaint 1 YR F/U (WITH PFM) Reason for Visit Essential hypertensi on History of atrial myxoma Hyperlipidemia Nonrheumatic mitral (valve) prolapse Nonrheumatic mitral valve regurgitation Nonrheumatic tricuspid valve regurgitation Premature atrial contractions Premature ventricular contraction Chief Complaint 1 YR F/U (WITH PFM) SERUM TEARS EYE Reason for Visit Essential hypertensi on History of atrial myxoma Hyperlipidemia Nonrheumatic mitral (valve) prolapse Nonrheumatic mitral valve regurgitation Nonrheumatic tricuspid valve regurgitation Premature atrial contractions Premature ventricular contraction Chief Complaint 1 YR F/U (WITH PFM) SERUM TEARS EYE SCREENING Reason for Visit Essential hypertensi on History of atrial myxoma Hyperlipidemia Nonrheumatic mitral (valve) prolapse Nonrheumatic mitral valve regurgitation Nonrheumatic tricuspid valve regurgitation Premature atrial contractions Premature ventricular contraction Chief Complaint SERUM TEARS EYE SCREENING COVID/FLU/RSV TEST SCREENING PNEUMONIA Reason for Visit Acute bronchitis, un specified Acute sinusitis, unspecified Contact with and (suspected) exposure to other viral communicable diseases Chief Complaint SERUM TEARS EYE SCREENING COVID/FLU/RSV TEST SCREENING PNEUMONIA fall Reason for Visit Acute bronchitis, un specified Acute sinusitis, unspecified Contact with and (suspected) exposure to other viral communicable diseases Chief Complaint SCREENING COVID/FLU/RSV TEST SCREENING PNEUMONIA fall fall Reason for Visit Acute bronchitis, un specified Acute sinusitis, unspecified Contact with and (suspected) exposure to other viral communicable diseases Chief Complaint SCREENING COVID/FLU/RSV TEST SCREENING PNEUMONIA fall fall wound wound wound Reason for Visit Acute bronchitis, un specified Acute sinusitis, unspecified Contact with and (suspected) exposure to other viral communicable diseases Infected wound Laceration of leg Nonhealing nonsurgical wound Chief Complaint COVID/FLU/RSV TEST SCREENING PNEUMONIA fall fall wound wound wound wound wound wound wound Reason for Visit Acute bronchitis, un specified Acute sinusitis, unspecified Contact with and (suspected) exposure to other viral communicable diseases Infected wound Laceration of leg Nonhealing nonsurgical wound Infected wound Laceration of leg Nonhealing nonsurgical wound Chief Complaint COVID/FLU/RSV TEST SCREENING PNEUMONIA fall fall wound wound wound wound wound wound wound wound wound Reason for Visit Acute bronchitis, un specified Acute sinusitis, unspecified Contact with and (suspected) exposure to other viral communicable diseases Infected wound Laceration of leg Nonhealing nonsurgical wound Infected wound Laceration of leg Nonhealing nonsurgical wound Infected wound Laceration of leg Nonhealing nonsurgical wound Chief Complaint fall wound wound wound wound wound wound wound wound wound PARKINSONS/ABNORMAL GAIT. RX HERE NEED 26 PT LABELS FOR SERUM FOR EYE DROPS Reason for Visit Infected wound Laceration of leg Nonhealing nonsurgical wound Infected wound Laceration of leg Nonhealing nonsurgical wound Infected wound Laceration of leg Nonhealing nonsurgical wound Chief Complaint wound wound wound wound wound wound wound wound wound NEED 26 PT LABELS FOR SERUM FOR EYE DROPS PARKINSONS/ABNORMAL GAIT. RX HERE Reason for Visit Infected wound Laceration of leg Nonhealing nonsurgical wound Infected wound Laceration of leg Nonhealing nonsurgical wound Infected wound Laceration of leg Nonhealing nonsurgical wound Chief Complaint wound wound wound wound wound NEED 26 PT LABELS FOR SERUM FOR EYE DROPS PARKINSONS/ABNORMAL GAIT. RX HERE Reason for Visit Infected wound Laceration of leg Nonhealing nonsurgical wound Infected wound Laceration of leg Nonhealing nonsurgical wound Chief Complaint NEED 26 PT LABELS FO R SERUM FOR EYE DROPS PARKINSONS/ABNORMAL GAIT. RX HERE TONGUE BITING Chief Complaint NEED 26 PT LABELS FO R SERUM FOR EYE DROPS PARKINSONS/ABNORMAL GAIT. RX HERE TONGUE BITING CHILLS Chief Complaint PARKINSONS/ABNORMAL GAIT. RX HERE TONGUE BITING CHILLS 1 y fu PREV PFM PT SYNCOPE DYSARTHRIA Reason for Visit Essential hypertensi on Dysarthria Parkinson's disease Syncope Chief Complaint TONGUE BITING CHILLS 1 y fu PREV PFM PT SYNCOPE DYSARTHRIA Syncope [facility] HAND PAIN/PT HAS RX Reason for Visit Essential hypertensi on Parkinson's disease Dysarthria Chief Complaint TONGUE BITING CHILLS 1 y fu PREV PFM PT SYNCOPE DYSARTHRIA Syncope [facility] PA[facility]/PT HAS RX CLOSED HEAD INJURY Reason for Visit Essential hypertensi on Parkinson's disease Dysarthria Chief Complaint CHILLS 1 y fu PREV PFM PT SYNCOPE DYSARTHRIA Syncope CLOSED HEAD INJURY [facility] PA[facility]/PT HAS RX Reason for Visit Essential hypertensi on Parkinson's disease Dysarthria Chief Complaint 1 y fu PREV PFM PT SYNCOPE DYSARTHRIA Syncope CLOSED HEAD INJURY [facility]/PT HAS RX Unspecified injury of head, initial encounter CERVICAL SPINE STENOSIS. RX HERE Reason for Visit Essential hypertensi on Parkinson's disease Dysarthria Chief Complaint SYNCOPE DYSARTHRIA Syncope CLOSED HEAD INJURY [facility] PAIN/PT HAS RX Unspecified injury of head, initial encounter CERVICAL SPINE STENOSIS. RX HERE Reason for Visit Parkinson's disease Dysarthria Chief Complaint SYNCOPE DYSARTHRIA Syncope CLOSED HEAD INJURY [facility] HAND PAIN/PT HAS RX Unspecified injury of head, initial encounter SERUM FOR EYE DROPS NEED 26 PT LABELS CERVICAL SPINE STENOSIS. RX HERE Reason for Visit Parkinson's disease Dysarthria Chief Complaint Syncope CLOSED HEAD INJURY [facility] PAIN/PT HAS RX Unspecified injury of head, initial encounter SERUM FOR EYE DROPS NEED 26 PT LABELS CERVICAL SPINE STENOSIS. RX HERE Chills (without fever) Chief Complaint CLOSED HEAD INJURY [facility] PAIN/PT HAS RX Unspecified injury of head, initial encounter SERUM FOR EYE DROPS NEED 26 PT LABELS CERVICAL SPINE STENOSIS. RX HERE Chills (without fever) Chief Complaint CLOSED HEAD INJURY [facility] PAIN/PT HAS RX Unspecified injury of head, initial encounter SERUM FOR EYE DROPS NEED 26 PT LABELS Chills (without fever) CERVICAL SPINE STENOSIS. RX HERE confusion TIA Reason for Visit Brain TIA Chief Complaint Unspecified injury o f head, initial encounter SERUM FOR EYE DROPS NEED 26 PT LABELS Chills (without fever) confusion TIA TIA (cardiology) CERVICAL SPINE STENOSIS. RX HERE fall Reason for Visit Brain TIA Chief Complaint Unspecified injury o f head, initial encounter SERUM FOR EYE DROPS NEED 26 PT LABELS Chills (without fever) confusion TIA TIA (cardiology) fall CERVICAL SPINE STENOSIS. RX HERE CERVICAL SPINE STENOSIS. RX HERE Reason for Visit Brain TIA Chief Complaint Unspecified injury o f head, initial encounter SERUM FOR EYE DROPS NEED 26 PT LABELS Chills (without fever) confusion TIA TIA (cardiology) fall CERVICAL SPINE STENOSIS. RX HERE Reason for Visit Brain TIA Chief Complaint SERUM FOR EYE DROPS NEED 26 PT LABELS Chills (without fever) confusion TIA TIA (cardiology) 30 DAY MONITOR YARITZA TO READ fall CERVICAL SPINE STENOSIS. RX HERE CERVICAL SPINE STENOSIS. RX HERE Reason for Visit Brain TIA Chief Complaint Chills (without feve r) confusion TIA TIA (cardiology) 30 DAY MONITOR YARITZA TO READ fall CERVICAL SPINE STENOSIS. RX HERE CERVICAL SPINE STENOSIS. RX HERE DEBILITY Reason for Visit Brain TIA Chief Complaint confusion TIA TIA (cardiology) 30 DAY MONITOR YARITZA TO READ fall CERVICAL SPINE STENOSIS. RX HERE CERVICAL SPINE STENOSIS. RX HERE DEBILITY DEBILITY DEBILITY DEBILITY DEBILITY DEBILITY DEBILITY DEBILITY Reason for Visit Brain TIA Anemia Debility Falls Generalized weakness Leukocytosis Parkinson's disease Chief Complaint confusion TIA TIA (cardiology) 30 DAY MONITOR YARITZA TO READ fall CERVICAL SPINE STENOSIS. RX HERE CERVICAL SPINE STENOSIS. 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 RX HERE DEBILITY DEBILITY DEBILITY DEBILITY DEBILITY DEBILITY DEBILITY DEBILITY DEBILITY ABN HOLTER (SEE NOTES) PENITENTIARY LAB WORK Reason for Visit Debility Generalized weakness Leukocytosis Brain TIA Debility GERD (gastroesophageal reflux disease) Orthostatic hypotension Hyperlipidemia Acute encephalopathy Syncope History of atrial myxoma Hyperlipidemia Premature atrial contractions Chief Complaint CLOSED HEAD INJURY [facility]ON HAND PAIN/PT HAS RX Unspecified injury of head, initial encounter SERUM FOR EYE DROPS NEED 26 PT LABELS Chills (without fever) CERVICAL SPINE STENOSIS. RX HERE Chief Complaint Admit Date PENITENTIARY LAB WORK May 22, 2024 5:00am MONTHLY EXAM May 29, 2024 6:26pm PENITENTIARY LAB WORK June 10 5:00am NEW CONCERN June 17, 2024 1:14pm LABWORK June 19, 2024 5: 00am PENITENTIARY LAB WORK June 26, 2024 5:45am MONTHLY EXAM July 01, 2024 3 :35pm PENITENTIARY LAB WORK July 17, 2024 5:00am NEW CONCERN July 31, 2024 1:57pm PENITENTIARY LAB WORK August 14 4:00am Chief Complaint Admit Date PENITENTIARY LAB WORK June 10 5:00am NEW CONCERN June 17, 2024 1:14pm LABWORK June 19, 2024 5: 00am PENITENTIARY LAB WORK June 26, 2024 5:45am MONTHLY EXAM July 01, 2024 3 :35pm PENITENTIARY LAB WORK July 17, 2024 5:00am NEW CONCERN July 31, 2024 1:57pm PENITENTIARY LAB WORK August 14 4:00am MONTHLY EXAM August 26, 2024 2:4 0pm PENITENTIARY LAB WORK September 11, 2024 5 :00am Chief Complaint Admit Date PENITENTIARY LAB WORK July 17, 2024 5:00am NEW CONCERN July 31, 2024 1:57pm PENITENTIARY LAB WORK August 14 4:00am MONTHLY EXAM August 26, 2024 2:4 0pm PENITENTIARY LAB WORK September 11, 2024 5 :00am PENITENTIARY LAB WORK September 18, 2024 5: 00am LABWORK October 22, 2024 5:00am Reason for Referral Specialty Diagnoses / Procedures Referred By Contac t Referred To Contact Diagnoses Parkinson's disease 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) Procedures PROVIDER ORDERED FOLLOW UP OFFICE/OUTPATIENT NEW HIGH MDM 60 MINUTES Selvin Felder MD [address] [place] [id number] Referral ID Status Reason Start Date Expiration Date Visits Requested Visits Authorized [id number] Authorized PCP Requested Referral 10/18/2023 01/16/2024 1 1 Specialty Diagnoses / Procedures Referred By Contac t Referred To Contact Diagnoses Parkinson's disease (HCC) Abnormality of 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) Procedures PROVIDER ORDERED FOLLOW UP OFFICE/OUTPATIENT NEW HIGH MDM 60-74 MINUTES Sridevi Solo MD [address] [place] [address] Referral ID Status Reason Start Date Expiration Date Visits Requested Visits Authorized [id number] Pending Review PCP Requested Referral 07/05/2022 10/03/2022 1 1 Specialty Diagnoses / Procedures Referred By Contact Referred To Contact [facility] Diagnoses Parkinson's disease (HCC) Abnormality of 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) Procedures CONSULT TO PHYSICAL THERAPY PHYSICAL THERAPY EVALUATION HIGH COMPLEX 45 MINS Sridevi Solo MD [address] [facility] [address] [facility] [place] [address] [place] [id number] Referral ID Status Reason Start Date Expiration Date Visits Requested Visits Authorized [id number] Pending Review Auto-Generat ed Referral 07/05/2022 07/05/2023 1 1 Specialty Diagnoses / Procedures Referred By Contac t Referred To Contact CT IMAGING Diagnoses 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 Procedures CT ABD/PEL WO IVCON CT ABD & PELVIS W/O CONTRAST Bart Brooks, DO [address] [place] [address] Ct Imaging Referral ID Status Reason Start Date Expiration Date Visits Requested Visits Authorized [id number] Pending Review Auto-Generat ed Referral 02/14/2022 03/16/2023 1 1 Additional Source Comments INFORMATION SOURCE (unrecogn ized section and content) DATE CREATED AUTHOR 06/23/2019 [facility] DATE CREATED AUTHOR AUTHOR'S ORGANIZ ATION 06/01/2020 [facility] DATE CREATED AUTHOR AUTHOR'S ORGANIZ ATION 02/16/2023 [facility] DATE CREATED AUTHOR AUTHOR'S ORGANIZ ATION 03/23/2023 [facility] DATE CREATED AUTHOR AUTHOR'S ORGANIZ ATION 10/23/2024 [facility] DATE CREATED AUTHOR AUTHOR'S ORGANIZ ATION 11/20/2024 [facility] Source Comments (unrecognize d section and content) In the event this informatio n is protected by the Federal Confidentiality of Alcohol and Drug Abuse Patient Records regulations: The Federal rules restrict any use of the information to criminally investigate or prosecute any alcohol or drug abuse patient.[facility] the event this information is protected by the Federal Confidentiality of Alcohol and Drug Abuse Patient Records regulations: The Federal rules restrict any use of the information to criminally investigate or prosecute any alcohol or drug abuse patient.[facility] Hospital[facility] the event this information is protected by the Federal Confidentiality of Alcohol and Drug Abuse Patient Records regulations: The Federal rules restrict any use of the information to criminally investigate or prosecute any alcohol or drug abuse patient.[facility] the event this information is protected by the Federal Confidentiality of Alcohol and Drug Abuse Patient Records regulations: The Federal rules restrict any use of the information to criminally investigate or prosecute any alcohol or drug abuse patient.[facility] Hospital[facility] the event this information is protected by the Federal Confidentiality of Alcohol and Drug Abuse Patient Records regulations: The Federal rules restrict any use of the information to criminally investigate or prosecute any alcohol or drug abuse patient.[facility] Hospital[facility] the event this information is protected by the Federal Confidentiality of Alcohol and Drug Abuse Patient Records regulations: The Federal rules restrict any use of the information to criminally investigate or prosecute any alcohol or drug abuse patient.[facility] Hospital[facility] the event this information is protected by the Federal Confidentiality of Alcohol and Drug Abuse Patient Records regulations: The Federal rules restrict any use of the information to criminally investigate or prosecute any alcohol or drug abuse patient.[facility] Hospital[facility] the event this information is protected by the Federal Confidentiality of Alcohol and Drug Abuse Patient Records regulations: The Federal rules restrict any use of the information to criminally investigate or prosecute any alcohol or drug abuse patient.[facility] Hospital[facility] the event this information is protected by the Federal Confidentiality of Alcohol and Drug Abuse Patient Records regulations: The Federal rules restrict any use of the information to criminally investigate or prosecute any alcohol or drug abuse patient.[facility] Hospital[facility] the event this information is protected by the Federal Confidentiality of Alcohol and Drug Abuse Patient Records regulations: The Federal rules restrict any use of the information to criminally investigate or prosecute any alcohol or drug abuse patient.[facility] HospitalIn the event this information is protected by the Federal Confidentiality of Alcohol and Drug Abuse Patient Records regulations: The Federal rules restrict any use of the information to criminally investigate or prosecute any alcohol or drug abuse patient.[facility] HospitalIn the event this information is protected by the Federal Confidentiality of Alcohol and Drug Abuse Patient Records regulations: The Federal rules restrict any use of the information to criminally investigate or prosecute any alcohol or drug abuse patient.[facility] HospitalIn the event this information is protected by the Federal Confidentiality of Alcohol and Drug Abuse Patient Records regulations: The Federal rules restrict any use of the information to criminally investigate or prosecute any alcohol or drug abuse patient.[facility] HospitalIn the event this information is protected by the Federal Confidentiality of Alcohol and Drug Abuse Patient Records regulations: The Federal rules restrict any use of the information to criminally investigate or prosecute any alcohol or drug abuse patient.[facility] HospitalIn the event this information is protected by the Federal Confidentiality of Alcohol and Drug Abuse Patient Records regulations: The Federal rules restrict any use of the information to criminally investigate or prosecute any alcohol or drug abuse patient.[facility] HospitalIn the event this information is protected by the Federal Confidentiality of Alcohol and Drug Abuse Patient Records regulations: The Federal rules restrict any use of the information to criminally investigate or prosecute any alcohol or drug abuse patient.[facility] HospitalIn the event this information is protected by the Federal Confidentiality of Alcohol and Drug Abuse Patient Records regulations: The Federal rules restrict any use of the information to criminally investigate or prosecute any alcohol or drug abuse patient.[facility] the event this information is protected by the Federal Confidentiality of Alcohol and Drug Abuse Patient Records regulations: The Federal rules restrict any use of the information to criminally investigate or prosecute any alcohol or drug abuse patient.[facility] HospitalIn the event this information is protected by the Federal Confidentiality of Alcohol and Drug Abuse Patient Records regulations: The Federal rules restrict any use of the information to criminally investigate or prosecute any alcohol or drug abuse patient.[facility] HospitalIn the event this information is protected by the Federal Confidentiality of Alcohol and Drug Abuse Patient Records regulations: The Federal rules restrict any use of the information to criminally investigate or prosecute any alcohol or drug abuse patient.[facility] HospitalIn the event this information is protected by the Federal Confidentiality of Alcohol and Drug Abuse Patient Records regulations: The Federal rules restrict any use of the information to criminally investigate or prosecute any alcohol or drug abuse patient.[facility] HospitalIn the event this information is protected by the Federal Confidentiality of Alcohol and Drug Abuse Patient Records regulations: The Federal rules restrict any use of the information to criminally investigate or prosecute any alcohol or drug abuse patient.[facility] HospitalIn the event this information is protected by the Federal Confidentiality of Alcohol and Drug Abuse Patient Records regulations: The Federal rules restrict any use of the information to criminally investigate or prosecute any alcohol or drug abuse patient.[facility] HospitalIn the event this information is protected by the Federal Confidentiality of Alcohol and Drug Abuse Patient Records regulations: The Federal rules restrict any use of the information to criminally investigate or prosecute any alcohol or drug abuse patient.[facility] HospitalIn the event this information is protected by the Federal Confidentiality of Alcohol and Drug Abuse Patient Records regulations: The Federal rules restrict any use of the information to criminally investigate or prosecute any alcohol or drug abuse patient.[facility] HospitalIn the event this information is protected by the Federal Confidentiality of Alcohol and Drug Abuse Patient Records regulations: The Federal rules restrict any use of the information to criminally investigate or prosecute any alcohol or drug abuse patient.[facility] Reason for Visit (unrecogniz ed section and content) Reason Comments Parkinson's Disease Specialty Diagnoses / Procedures Referred By Contac t Referred To Contact Diagnoses Parkinson's disease 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) Procedures PROVIDER ORDERED FOLLOW UP OFFICE/OUTPATIENT [facility] MDM 60 MINUTES Selvin Felder MD [address] [address] Referral ID Status Reason Start Date Expiration Date V isits Requested Visits Authorized [id number] Closed PCP Requested Referral 10/18/2023 01/16/2024 1 1 Reason Comments Established Patient FOLLOW UP MED CHECK Reason Comments Patient Update Reason Comments Established [...] THERAPY EVALUATION HIGH COMPLEX 45 MINS Sridevi Solo MD [address] [place] [address] Tejal Willard, PT [address] [place] [address] Referral ID Status Reason Start Date Expiration Date V isits Requested Visits Authorized [id number] Authorized 07/05/2022 07/05/2023 1 99 Reason Comments Established Patient Reason Comments Patient Request Reason Comments Follow Up Specialty Diagnoses / Procedures Referred By Contac t Referred To Contact Diagnoses Tongue biting Procedures PROVIDER ORDERED FOLLOW UP Selvin Felder MD [address] [address] Referral ID Status Reason Start Date Expiration Date V isits Requested Visits Authorized [id number] Closed PCP Requested Referral 10/03/2022 01/01/2023 1 1 Reason Comments Patient Question Reason Onset Date Comments Refill Request 07/30/2023 Reason Comments Appointment Specialty Diagnoses / Procedures Referred By Contac t Referred To Contact Diagnoses Parkinson's disease 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) Procedures PROVIDER ORDERED FOLLOW UP OFFICE/OUTPATIENT [facility] 60 MINUTES Selvin Felder MD [address] [place] [address] Phone: tel: fax: Referral ID Status Reason Start Date Expiration Date V isits Requested Visits Authorized [id number] Closed PCP Requested Referral 04/21/2024 07/20/2024 1 1 Care Teams (unrecognized sec tion and content) [facility] Relationship Specialty Start Date End Date Erasmo Howard Morris PCP - General Gerontology 11/23/14 [facility] Psych[facility] Relationship Specialty Start Date End Date Erasmo Howard Chi PCP - General Gerontology 11/23/14 [facility] Psych[facility] Relationship Specialty Start Date End Date Erasmo, Howard Chi PCP - General Gerontology 11/23/14 [facility] Psych[facility] Relationship Specialty Start Date End Date Erasmo, Howard Chi PCP - General Gerontology 11/23/14 [facility] Psych[facility] Relationship Specialty Start Date End Date Erasmo Howard Chi PCP - General Gerontology 11/23/14 [facility] Psych[facility] Relationship Specialty Start Date End Date Howard Zimmerman Chi PCP - General Gerontology 11/23/14 [facility] Psych[facility] Relationship Specialty Start Date End Date Howard Zimmerman Chi PCP - General Gerontology 11/23/14 [facility] Psych[facility] Relationship Specialty Start Date End Date Howard Zimmerman Chi PCP - General Gerontology 11/23/14 Team Status: Active Member Role Status Dates Dr. Howard Zimmerman MD Family Provider Active Dr. Howard Zimmerman MD Primary Care Provider Active Team Status: Inactive Member Role Status Dates Dr. Howard Zimmerman MD Primary Care Provider, Referring Provider Active Filipe Pickering PA, PA Attending Provider Active Team Status: Active Member Role Status Dates Dr. Howard Zimmerman MD Primary Care Provider Active Rhoda Mercado TON CONTAINER SHIPPER, TON CONTAINER SHIPPER-C Other Provider Active Paige May PA, PA Attending Provider Active Team Status: Active Member Role Status Dates Dr. Howard Zimmerman MD Primary Care Provider Active Rhoda Mercado TON CONTAINER SHIPPER, TON CONTAINER SHIPPER-C Attending Provider, Other Pro vider Active Team Status: Inactive Member Role Status Dates Dr. Howard Zimmerman MD Primary Care Provider, Attending Provider Active Team Status: Inactive Member Role Status Dates Dr. Howard Zimmerman MD Primary Care Provider, Attending Provider Active Howard Zimmerman MD Referring Provider Active Team Status: Inactive Member Role Status Dates Dr. Howard Zimmerman MD Primary Care Provi misha, Attending Provider, Referring Provider Active Team Status: Inactive Member Role Status Dates Dr. Howard Zimmerman MD Primary Care Provider Active Dr. Joel Mccarthy DO Attending Provider, Emergency P ignacio Active Team Status: Inactive Member Role Status Dates Dr. Howard Zimmerman MD Primary Care Provider Active Rhoda Mercado TON CONTAINER SHIPPER, TON CONTAINER SHIPPER-C Attending Provider Active [facility] Psych[facility] Relationship Specialty Start Date End Date Erasmo Howard Morris PCP - General Gerontology 11/23/14 Team Status: Inactive Member Role Status Dates Dr. Howard Zimmerman MD Primary Care Provider Active Dr. Melissa Pinon DO Attending Provider Active Team Status: Active Member Role Status Dates Dr. Howard Zimmerman MD Primary Care Provider Active GERMANIA LAUREANO Attending Provider, Referring Provider Ac tive Team Status: Active Member Role Status Dates Dr. Howard Zimmerman MD Primary Care Provider Active Dr. Robb Cobb MD Attending Provider Active Team Status: Inactive Member Role Status Dates Dr. Howard Zimmerman MD Primary Care Provider Active Dr. Robb Cobb MD Attending Provider Active Team Status: Inactive Member Role Status Dates Dr. Howard Zimmerman MD Primary Care Provider Active GERMANIA LAUREANO Attending Provider, Referring Provider Ac tive Team Status: Inactive Member Role Status Dates Dr. Howard Zimmerman MD Primary Care Provider Active Dr. Selvin Felder MD Attending Provider, Referring Provider Active Team Status: Inactive Member Role Status Dates Dr. Howard Zimmerman MD Primary Care Provider, Referring Provider Active Dr. Tiago Vigil MD Attending Provider Active Team Status: Active Member Role Status Dates Dr. Howard Zimmerman MD Primary Care Provider Active Dr. Meghann Santos MD Attending Provider Activ e Team Status: Active Member Role Status Dates Dr. Howard Zimmerman MD Primary Care Provider Active Dr. Stephanie Gonzalez DO Emergency Provider Active Dr. Gonzalez Garza DO Admit Provider, Attending Provider, Other Provider Active Team Status: Inactive Member Role Status Dates Dr. Howard Zimmerman MD Primary Care Provider Active Dr. Stephanie Gonzalez DO Emergency Provider Active Dr. Gonzaelz Garza DO Admit Provider, Attending Pro vider Active [facility] Relationship Specialty Start Date End Date Howard Zimmerman Chi PCP - General Gerontology 11/23/14 Team Status: Active Member Role Status Dates Dr. Howard Zimmerman MD Primary Care Provider Active Dr. Drake Beck MD Attending Provider, Referring Provider Active [facility] Psych[facility] Relationship Specialty Start Date End Date Howard Zimmerman Chi PCP - General Gerontology 11/23/14 [facility] Psych[facility] Relationship Specialty Start Date End Date Howard Zimmerman Chi PCP - General Gerontology 11/23/14 Team Status: Active Member Role Status Dates Dr. Howard Zimmerman MD Primary Care Provider, Attending Provider Active Team Status: Inactive Member Role Status Dates Dr. Howard Zimmerman MD Primary Care Provider Active Dr. Adam Alonso MD Attending Provider, Referring P ignacio Active Team Status: Active Member Role Status Dates Dr. Howard Zimmerman MD Primary Care Provi misha, Attending Provider, Referring Provider Active Team Status: Active Member Role Status Dates Dr. Howard Zimmerman MD Primary Care Provider Active Dr. Myrna Munguia MD Emergency Provider Active Dr. Daisy Mack MD Attending Provider Active Team Status: Active Member Role Status Dates Dr. Howard Zimmerman MD Primary Care Provider Active Dr. Myrna Munguia MD Emergency Provider Active Dr. Daisy Mack MD Admit Provider, Attending Prov ider Active Team Status: Active Member Role Status Dates Dr. Howard Zimmerman MD Primary Care Provider Active Dr. Tiago Vigil MD Attending Provider Active Team Status: Inactive Member Role Status Dates Dr. Howard Zimmerman MD Primary Care Provider Active Dr. Myrna Munguia MD Emergency Provider Active Dr. Daisy Mack MD Admit Provider, Other Provider Active Carlos Whipple MD Other Provider Active Dr. Karen Mckeon MD Other Provider Active Darcy Hernandez MD Other Provider Active Dr. Paige Martinez DO Other Provider Active Dr. Farzana Levin MD Other Provider Active Dr. Timothy Fortune MD Other Provider Active Dr. Cherie Mark MD Other Provider Active Dr. Jose Benson MD Other Provider Active Dr. Isiah Kelly MD Other Provider Active Eri Interiano MD Other Provider Active Dr. Vincent Suresh MD Other Provider Active Dr. Alayna Valverde MD Other Provider Active Dr. Ruy Sun MD Other Provider Active Dr. Elian Stroud MD Other Provider Active Dr. John Quesada MD Other Provider Active Dr. Pamela Kamara MD Other Provider Active Dr. Jonathon Rodríguez MD Other Provider Active Dr. Mallika Pinon MD Other Provider Active Roopa Tolbert MD Other Provider Active Dr. Avel Massey MD Attending Provider Active Team Status: Active Member Role Status Dates Dr. Howard Zimmerman MD Primary Care Provider Active Dr. Myrna Munguia MD Emergency Provider Active Dr. Daisy Mack MD Admit Provider, Other Provider Active Carlos Whipple MD Other Provider Active Dr. Karen Mckeon MD Other Provider Active Darcy Hernandez MD Other Provider Active Dr. Paige Martinez DO Other Provider Active Dr. Farzana Levin MD Other Provider Active Dr. Timothy Fortune MD Other Provider Active Dr. Cherie Mark MD Other Provider Active Dr. Jose Benson MD Other Provider Active Dr. Isiah Kelly MD Other Provider Active Eri Interiano MD Other Provider Active Dr. Vincent Suresh MD Other Provider Active Dr. Alayna Valverde MD Other Provider Active Dr. Ruy Sun MD Other Provider Active Dr. Elian Stroud MD Other Provider Active Dr. John Quesada MD Other Provider Active Dr. Pamela Kamara MD Other Provider Active Dr. Jonathon Rodríguez MD Other Provider Active Dr. Mallika Pinon MD Other Provider Active Roopa Tolbert MD Other Provider Active Dr. Avel Massey MD Attending Provider, Other Provi misha Active Team Status: Inactive Member Role Status Dates Dr. Howard Zimmerman MD Primary Care Provider Active Dr. Umesh Velázquez MD Emergency Provider Active [facility] Relationship Specialty Start Date End Date Howard Zimmerman Chi PCP - General Gerontology 11/23/14 [facility] Psychiatrist Relationship Specialty Start Date End Date Howard Zimmerman Chi PCP - General Gerontology 11/23/14 [facility] Psychiatrist Relationship Specialty Start Date End Date Erasmo Howard Morris PCP - General Gerontology 11/23/14 Team Status: Active Member Role Status Dates Dr. Howard Zimmerman MD Primary Care Provider Active Dr. Tiago Vigil MD Attending Provider Active Dr. Avel Massey MD Referring Provider Active Team Status: Inactive Member Role Status Dates Dr. Howard Zimmerman MD Primary Care Provider Active Dr. Umesh Velázquez MD Attending Provider, Emergency Pro vider Active Team Status: Active Member Role Status Dates Dr. Howard Zimmerman MD Primary Care Provider Active Dr. Avel Massey MD Attending Provider, Referring P rovider Active Team Status: Active Member Role Status Dates Dr. Howard Zimmerman MD Primary Care Provider Active Dr. Germán Benson , DO Emergency Provider Active Dr. Gonzalez Garza , DO Admit Provider, Attending Pro vider Active Team Status: Active Member Role Status Dates Dr. Howard Zimmerman MD Primary Care Provider Active Dr. Germán Benson , DO Emergency Provider Active Dr. Gonzalez Garza , DO Admit Provider, Attending Provider, Other Provider Active Team Status: Active Member Role Status Dates Dr. Howard Zimmerman MD Primary Care Provider Active Dr. Germán Benson , Emergency Provider Active Dr. Gonzalez Garza , DO Admit Provider, Other Provide r Active Dr. Maame Pinon , DO Attending Provider, Other Provide r Active Team Status: Active Member Role Status Dates Dr. Howard Zimmerman MD Primary Care Provider Active Dr. Germán Benson , Emergency Provider Active Dr. Gonzalez Garza , DO Admit Provider, Other Provide r Active Dr. Maame Pinon , DO Attending Provider, Other Provide r Active Dr. Karen Mckeon MD Other Provider Active Dr. Farzana Levin MD Other Provider Active Vilma Shine MD Other Provider Active Koko Mckeon MS Other Provider Active Ashlee Bautista MD Other Provider Active ERIC BATRES MD Other Provider Active Eri Interiano MD Other Provider Active Dr. Alayna Valverde MD Other Provider Active Reji Reid MD Other Provider Active Marly Ochoa MD Other Provider Active Carlos Whipple MD Other Provider Active Darcy Hernandez MD Other Provider Active Dr. Paige Martinez DO Other Provider Active Dr. Timothy Fortune MD Other Provider Active Dr. Cherie Mark MD Other Provider Active Dr. Jose Benson MD Other Provider Active Dr. Isiah Kelly MD Other Provider Active Dr. Vincent Suresh MD Other Provider Active Dr. Ruy Sun MD Other Provider Active Dr. Elian Stroud MD Other Provider Active Dr. John Quesada MD Other Provider Active Dr. Pamela Kamara MD Other Provider Active Dr. Jonathon Rodríguez MD Other Provider Active Dr. Mallika Pinon MD Other Provider Active Roopa Tolbert MD Other Provider Active Team Status: Inactive Member Role Status Dates Dr. Howard Zimemrman MD Primary Care Provider Active Dr. Germán Benson , DO Emergency Provider Active Dr. Gonzalez Garza , DO Admit Provider, Other Provide r Active Dr. Maame Pinon , DO Attending Provider Active Dr. Karen Mckeon MD Other Provider Active Dr. Farzana Levin MD Other Provider Active Vilma Shine MD Other Provider Active Koko Mckeon MS Other Provider Active Ashlee Bautista MD Other Provider Active ERIC BATRES MD Other Provider Active Eri Interiano MD Other Provider Active Dr. Alayna Valverde MD Other Provider Active Reji Reid MD Other Provider Active Marly Ochoa MD Other Provider Active Carlos Whipple MD Other Provider Active Darcy Hernandez MD Other Provider Active Dr. Paige Martinez DO Other Provider Active Dr. Timothy Fortune MD Other Provider Active Dr. Cherie Mark MD Other Provider Active Dr. Jose Benson MD Other Provider Active Dr. Isiah Kelly MD Other Provider Active Dr. Vincent Suresh MD Other Provider Active Dr. Ruy Sun MD Other Provider Active Dr. Elian Stroud MD Other Provider Active Dr. John Quesada MD Other Provider Active Dr. Pamela Kamara MD Other Provider Active Dr. Jonathon Rodríguez MD Other Provider Active Dr. Mallika Pinon MD Other Provider Active Roopa Tolbert MD Other Provider Active Team Status: Inactive Member Role Status Dates Dr. Howard Zimmerman MD Primary Care Provider, Referring Provider Active Julissa Da Silva PA, PA Attending Provider Active Team Status: Inactive Member Role Status Dates Dr. Howard Zimmerman MD Primary Care Provi misha, Admit Provider, Attending Provider Active [facility] Relationship Specialty Start Date End Date Howard Zimmerman Chi PCP - General Gerontology 11/23/14 Team Status: Inactive Member Role Status Dates Dr. Howard Zimmerman MD Primary Care Provider Active Odalis MERCER MD Attending Provider, Referring Provider Active Team Status: Active Member Role Status Dates Dr. Howard Zimmerman MD Primary Care Provider Active Odalis MERCER MD Attending Provider Active [facility] Psych[facility] Relationship Specialty Start Date End Date Howard Zimmerman Chi PCP - General Gerontology 11/23/14 [facility] Psych[facility]rist Relationship Specialty Start Date End Date Erasmo Howard Morris PCP - General Gerontology 11/23/14 Team Status: Inactive Member Role Status Dates Dr. Howard Zimmerman MD Primary Care Provider Active Start: May 22, 2024 End: May 22, 2024 Odalis MERCER MD Attending Provider Active Start: May 22, 2024 End: May 22, 2024 Team Status: Inactive Member Role Status Dates Dr. Howard Zimmerman MD Primary Care Provider Active Start: May 29, 2024 End: May 29, 2024 Pam Pack NP, [employer] Attending Provider Active Start: May 29, 2024 End: May 29, 2024 Team Status: Inactive Member Role Status Dates Dr. Howard Zimmerman MD Primary Care Provider Active Start: June 10, 2024 End: June 10, 2024 Odalis MERCER MD Attending Provider Active Start: June 10, 2024 End: June 10, 2024 Team Status: Inactive Member Role Status Dates Dr. Howard Zimmerman MD Primary Care Provider Active Start: June 17, 2024 End: June 17, 2024 Dr. Odalis Saravia MD Attending Provider Active Start: June 17, 2024 End: June 17, 2024 Team Status: Active Member Role Status Dates Dr. Howard Zimmerman MD Primary Care Provider Active Start: June 19, 2024 Odalis MERCER MD Attending Provider Active Start: June 19, 2024 Team Status: Inactive Member Role Status Dates Dr. Howard Zimmerman MD Primary Care Provider Active Start: June 26, 2024 End: June 26, 2024 Odalis MERCER MD Attending Provider Active Start: June 26, 2024 End: June 26, 2024 Team Status: Inactive Member Role Status Dates Dr. Howard Zimmerman MD Primary Care Provider Active Start: July 01, 2024 End: July 01, 2024 Dr. Odalis Saravia MD Attending Provider Active Start: July 01, 2024 End: July 01, 2024 Team Status: Active Member Role Status Dates Dr. Howard Zimmerman MD Primary Care Provider Active Start: July 17, 2024 Odalis MERCER MD Attending Provider Active Start: July 17, 2024 Team Status: Inactive Member Role Status Dates Dr. Howard Zimmerman MD Primary Care Provider Active Start: July 31, 2024 End: July 31, 2024 Pam Pack NP, [employer] Attending Provider Active Start: July 31, 2024 End: July 31, 2024 Team Status: Inactive Member Role Status Dates Dr. Howard Zimmerman MD Primary Care Provider Active Start: August 14, 2024 End: August 14, 2024 Odalis MERCER MD Attending Provider Active Start: August 14, 2024 End: August 14, 2024 Odalis MERCER MD Referring Provider Active Start: August 14, 2024 End: August 14, 2024 Team Status: Active Member Role Status Dates Dr. Howard Zimmerman MD Primary Care Provider Active Start: September 11, 2024 Odalis MERCER MD Attending Provider Active Start: September 11, 2024 Team Status: Active Member Role Status Dates Dr. Howard Zimmerman MD Primary Care Provider Active Start: September 18, 2024 Odalis MERCER MD Attending Provider Active Start: September 18, 2024 Team Status: Inactive Member Role Status Dates Dr. Howard Zimmerman MD Primary Care Provider Active Start: August 26, 2024 End: August 26, 2024 Dr. Odalis Saravia MD Attending Provider Active Start: August 26, 2024 End: August 26, 2024 Team Status: Inactive Member Role Status Dates Dr. Howard Zimmerman MD Primary Care Provider Active Start: September 11, 2024 End: September 11, 2024 Odalis MERCER MD Attending Provider Active Start: September 11, 2024 End: September 11, 2024 [facility] Relationship Specialty Start Date End Date Howard Zimmerman Chi PCP - General Gerontology 11/23/14 Team Status: Inactive Member Role Status Dates Dr. Howard Zimmerman MD Primary Care Provider Active Start: September 18, 2024 End: September 18, 2024 Odalis MERCER MD Attending Provider Active Start: September 18, 2024 End: September 18, 2024 Team Status: Inactive Member Role Status Dates Dr. Howard Zimmerman MD Primary Care Provider Active Start: October 22, 2024 End: October 22, 2024 Odalis MERCER MD Attending Provider Active Start: October 22, 2024 End: October 22, 2024 Team Status: Active Member Role Status Dates Dr. Howard Zimmerman MD Primary Care Provider Active Start: October 23, 2024 Odalis MERCER MD Attending Provider Active Start: October 23, 2024 Goals (unrecognized section and content) Goals may be documented in a n alternate section FOR RECORDS PERTAINING TO PATIENTS WHO ARE [...] BE BASED ON THE PRIMARY CLINICAL RECORDS. [employer] provides no warranty or guarantee of the accuracy or completeness of information in this document.
[2024-11-27 08:07] LABS: Absolute Lymphocyte Count 6.85 X10^3/uL (0.83-4.51); Absolute Neutrophil Count 6.9 X10^3/uL (2.0-7.7); Basophil# 0.43 X10^3/uL; Basophil% 2.6 % (0-1); Eosinophil# 0.62 X10^3/uL; Eosinophils% 3.8 % (0-5); Hematocrit 33.1 % (37-47); Lymphocyte # 6.85 X10^3/ul (0.83-4.51); Lymphocyte % 42.1 % (19-41); Mean Corp Hgb Conc 33.2 g/dL (32-36); Mean Corpuscular Hgb 32.2 pg (27.0-32.0); Mean Corpuscular Volume 96.8 fL (81-99); Mean Platelet Vol. 9.2 fl (6.2-12.0); Monocyte# 1.44 X10^3/uL; Monocyte% 8.8 % (0-10); NRBC Flagged by Analyzer 0 % (0-5); Neutrophil # 6.86 X10^3/uL (2.7-7.7); Neutrophil % 42.2 % (47-70); POSITIVE DIFFERENTIAL YES; POSITIVE MORPHOLOGY YES; Platelet Count 571 K/mm3 (150-450); RBC Distribution Width CV 12.9 % (11.6-14.6); RBC Distribution Width SD 45.9 fl (35.1-43.9); Red Blood Count 3.42 M/mm3 (4.2-5.4); White Blood Count 16.3 K/mm3 (4.4-11.0)
[2024-11-27 08:10] LABS: Differential Indicated SCAN CRITERIA MET
[2024-11-27 08:22] LABS: Anion Gap 12 (5-15); BUN 30 mg/dL (4-19); BUN/Creat Ratio 28.1 RATIO (10-20); Calcium,Total 9.4 mg/dL (7.6-11.0); Carbon Dioxide 23.6 mmol/L (21.0-32.0); Chloride 102 mmol/L (98-108); Creatinine, Serum 1.05 mg/dL (0.70-1.20); EST Glomerular Filtration Rate 51 (>60); Glucose 88 mg/dL (70-99); Potassium 4.5 mmol/L (3.3-5.1); Sodium Level 138 mmol/L (133-145)
[2024-11-27 09:17] LABS: Atypical Lymphocyte 1+ %
== END ==
LOC: OLS.WHLTSB 05:00
PROVIDERS: PCP Family Medicine Geriatric Medicine; Visit Provider Internal Medicine
DX: J18.9 Pneumonia, unspecified organism (principal); G20.C Parkinsonism, unspecified; J06.9 Acute upper respiratory infection, unspecified; J20.9 Acute bronchitis, unspecified
CPT/HCPCS: 36415; 80048; 85025; 87449

== ENCOUNTER → 2024-12-25 05:00 | Outpatient (REF) | payer MEDICARE, SELFPAY ==
[2024-12-25 09:31] LABS: Hematocrit 35.7 % (37-47); Hemoglobin 11.7 g/dL (12.0-15.0); Immature Granulocytes Count 0.040 X10^3/uL (0.0-0.0); Mean Corp Hgb Conc 32.8 g/dL (32-36); Mean Corpuscular Volume 98.3 fL (81-99); Mean Platelet Vol. 10.0 fl (6.2-12.0); NRBC Flagged by Analyzer 0 % (0-5); POSITIVE DIFFERENTIAL YES; Platelet Count 381 K/mm3 (150-450); RBC Distribution Width CV 13.4 % (11.6-14.6); RBC Distribution Width SD 47.7 fl (35.1-43.9); Red Blood Count 3.63 M/mm3 (4.2-5.4); White Blood Count 14.1 K/mm3 (4.4-11.0)
[2024-12-25 09:37] LABS: Differential Indicated SCAN CRITERIA MET
[2024-12-25 09:44] LABS: Anion Gap 10 (5-15); BUN 29 mg/dL (4-19); BUN/Creat Ratio 30.3 RATIO (10-20); Calcium,Total 9.5 mg/dL (7.6-11.0); Carbon Dioxide 26.3 mmol/L (21.0-32.0); Chloride 102 mmol/L (98-108); Glucose 77 mg/dL (70-99); Potassium 4.6 mmol/L (3.3-5.1)
[2024-12-25 10:21] LABS: Differential Comment SCANNED
== END ==
LOC: OLS.WHLTSB 05:00
PROVIDERS: PCP Family Medicine Geriatric Medicine; Visit Provider Internal Medicine
DX: N18.30 Chronic kidney disease, stage 3 unspecified (principal); G20.C Parkinsonism, unspecified
CPT/HCPCS: 36415; 80048; 85025

== ENCOUNTER → 2025-01-02 05:00 | Outpatient (REF) | payer MEDICARE, SELFPAY ==
--- OUTSIDE RECORDS SUMMARY | 2025-01-02 03:58 | XMS RPT_ITS | CCD ---
Author Organization [facility] Care Team Providers Care General Hardware Salesperson Name Role Phone FARHAD Reagan, Amy Mao Unavailable Jayden Reagan RN, Amy Mao Unavailable Shannan Dhillon Primary Care Provider Erasmo MASON, Shannan Primary Care Provider Howard Zimmerman Chi Primary Care Provider [phone] ERASMO MASON, DR JONES Primary Care Physician Sadaf Love PT Unavailable Unavailable Dr. Howard Zimmerman Chi Primary Care Provider Erasmo, Dr. Howard Morris Referring Provider Dr. Bart Olivarez Attending Provider Howard Zimmerman Chi Primary Care Provider Howard Zimmerman Chi Primary Care Provider Dr. Howard Zimmerman Chi Primary Care Provider Erasmo, Dr. Howard Morris Referring Provider NANNETTE Chung Attending Provider Dr. Howard Zimmerman Chi Primary Care Provider Dr. Howard Zimmerman Chi Referring Provider NANNETTE Chung Attending Provider Howard Zimmerman Chi Primary Care Provider Rogelio AUTOMOTIVE GLASS INSTALLER, AUTOMOTIVE GLASS INSTALLERMelva Duong Other Provider NANNETTE Edwards Attending Provider Dr. Howard Zimmerman Chi Primary Care Provider Rogelio AUTOMOTIVE GLASS INSTALLER, AUTOMOTIVE GLASS INSTALLER-C Rhoda Other Provider Yadira BRUNSON, NANNETTE Gibson Attending Provider [phone] Erasmo, Dr. Howard Morris Primary Care Provider Erasmo, Dr. Howard Morris Referring Provider Dr. Tiago Vigil Attending Provider [phone] Meghann Santos Attending Provider Dr. Stephanie Gonzalez Emergency Provider Tercayetano, Dr. Roth Admit Provider Tereletstimothy, Dr. Roth Attending Provider Tereletstimothy, Dr. Roth Other Provider ERASMO, HOWARD MORRIS Primary Care Unavailable ITIN, SRIDEVI Referring Unavailable Erasmo, Dr. Howard Morris Primary Care Provider Erasmo, Dr. Howard Morris Referring Provider Dr. Tiago Vigil Attending Provider [phone] Meghann Santos Attending Provider [phone] Carlos, Dr. Brown Emergency Provider Tereletstimothy, Dr. Roth Admit Provider TerDr. Gonzalez monteiro Attending Provider Tereletstimothy, Dr. Roth Other Provider Erasmo, Dr. Howard Morris Primary Care Provider Erasmo, Dr. Howard Morris Primary Care Provider Dr. Stephanie Gonzalez Emergency Provider Tereletstimothy, Dr. Roth Admit Provider Tereletstimothy, Dr. Roth Attending Provider Tereletstimothy, Dr. Roth Other Provider Erasmo, Dr. Howard [...] Other Provider Dr. Timothy Fortune Other Provider [phone] Dr. Cherie Mark Other Provider Dr. Jose Benson Other Provider Dr. Isiah Kelly Other Provider MD Eri Interiano Other Provider Dr. Vincent Suresh Other Provider Dr. Alayna Valverde Other Provider Dr. Ruy Sun Other Provider [phone] Dr. Elian Stroud Other Provider Dr. [...] Rekha BRUNSON, PA Julissa Mao Attending Provider Howard Zimmerman Chi Primary Care Provider [phone] Howard Zimemrman Chi Primary Care Provider Dr. Myrna Munguia Emergency Provider [phone] Daisy Mack Attending Provider Dr. Tiago [...] Other Provider MD Vilma Shine Other Provider Mike MS Koko Other Provider MD Ashlee Bautista [...] Other Provider Dr. Timothy Fortune Other Provider [phone] Cherie Mark Other Provider Dr. Jose Benson Other Provider Dr. Isiah Kelly Other Provider Dr. Vincent Suresh Other Provider Dr. Ruy Sun Other Provider [phone] Elian Stroud Other Provider Dr. John Quesada Other Provider Dr. Pamela Kamara Other Provider Dr. Jonathon Rodríguez Other Provider [phone] Mallika Pinon Other Provider Unavailable MD Roopa Tolbert Other Provider Unavailable Dr. Howard Zimmerman MD, Chi Primary Care Provider Odalis Saravia MD Attending Provider Unavaila ble Ticknir AUTOMOTIVE GLASS INSTALLER-CPam Attending Provider Dr. Odalis Saravia MD Attending Provider Odalis Saravia MD Referring Provider UnavailDr. Howard Nielson MD, Chi Primary Care Provider [phone] Odalis Saravia MD Attending Provider Unavaila ble Tickton AUTOMOTIVE GLASS INSTALLER-CPam Attending Provider SELVIN FELDER Attending Unavailable SELVIN FELDER Referring Unavailable ERASMO, HOWARD CHI Primary Care Unavailable SELVIN FELDER Attending Unavailable SELVIN FELDER Referring Unavailable ERASMO, HOWARD CHI Primary Care Unavailable Dr. Howard Zimmerman MD, Chi Primary Care Provider Odalis Saravia MD Attending Provider UnavailDr. Odalis Stuart MD Attending Provider Dr. Howard Zimmerman MD Chi Primary Care Provider Odalis Saravia MD Attending Provider Pam Armendariz Attending Provider Oleghe OLS, Efewongbe Attending Unavailabl e Oleghe, [...] Care Unavailable Oleghe, Efewongbe Primary Care Unavailable Peter Goodwin Attending Unavailable Oleghe OLS, Efewongbe Attending Unavailabl [...] Unavailable Oleghe OLS, Efewongbe Referring Unavailabl e Erasmo, Howard Chi Primary Care Unavailable Fabio, Joel Attending Unavailable Oleghe OLS, Efewongbe Attending Unavailabl e Oleghe, Efewongbe Primary Care Unavailable Tickton, Pam Attending Unavailable Erasmo, Howard Chi Primary Care Unavailable Oleghe OLS, Efewongbe Attending Unavailabl e Oleghe, Efewongbe Primary Care Unavailable Oleghe, Efewongbe Attending Unavailable Erasmo, Howard Chi Primary Care Unavailable Tickton, Pam Attending Unavailable Erasmo, Howard Chi Primary Care Unavailable Tickton, Pam Attending Unavailable Erasmo, Howard Chi Primary Care Unavailable Tickton, Pam Attending Unavailable Erasmo, Howard Chi Primary Care Unavailable Oleghe, Efewongbe Attending Unavailable Erasmo, Howard Chi Primary Care Unavailable Tickton, Pam Attending Unavailable Erasmo, Howard Chi Primary Care Unavailable Oleghe, Efewongbe Attending Unavailable Oleghe, Efewongbe Primary Care Unavailable Tickton, Pam Attending Unavailable Oleghe, Efewongbe Primary Care Unavailable Tickton, Pam Attending Unavailable Oleghe, Efewongbe Primary Care Unavailable Erasom, Howard Chi Primary Care Unavailable Tickton, Pam Attending Unavailable Oleghe, Efewongbe Attending Unavailable Oleghe, Efewongbe Primary Care Unavailable Oleghe, Efewongbe Attending Unavailable Erasmo, Howard Chi Primary Care Unavailable Tickton, Pam Attending Unavailable Erasmo, Howard Chi Primary Care Unavailable Oleghe, Efewongbe Attending Unavailable Erasmo, Howard Chi Primary Care Unavailable Oleghe OLS, Efewongbe Attending Unavailabl e Oleghe, Efewongbe Primary Care Unavailable Oleghe OLS, Efewongbe Attending Unavailabl e Oleghe, Efewongbe Primary Care Unavailable Oleghe OLS, Efewongbe Attending Unavailabl e Oleghe, Efewongbe Primary Care Unavailable Oleghe OLS, Efewongbe Referring Unavailabl e Oleghe OLS, Efewongbe Attending Unavailabl e Oleghe, Efewongbe Primary Care Unavailable Allergies Allergy Classification Reported Allergen(s) Allergy Type Date of Onset Reaction(s) Facility (2 sources) mold extract; Translations: [MOLD] Drug Allergy 1 [facility] Work Phone: [phone] (2 sources) potassium Drug Allergy 1 Rash [facility] Work Phone: [phone] (20 sources) traMADol; Translations: [TRAMADOL] Drug Allergy 7 Nausea Only, GI Upset [facility] Work Phone: [phone] Comment on above: upset stomach (2 sources) RAGWEED drug allergy 1 [facility] Work Phone: [phone] (6 sources) Penicillins; Translations: [PENICILLINS] Propensity to adverse reactions to drug 5 [place], [place] (2 sources) Penicillins Drug Allergy 5 [facility] Work Phone: [phone] (19 sources) environmental [Other] Propensity to adverse reactions 5 [facility] Work Phone: [phone] (20 sources) Penicillins Drug Allergy 5 [facility] Work Phone: [phone] (20 sources) Penicillins Allergy to substance 2 [facility] (1 source) OTHER; Translations: [OTHER] Propensity to adverse reactions (disorder) 5 [facility] Other [facility] (9 sources) risperiDONE; Translations: [RISPERIDONE] Drug Allergy 4 [facility] Comment on above: Also becomes severel y confused and has slurred speech and hallucinations. (1 source) Penicillins Drug Allergy 5 [facility] Work Phone: (1 source) Penicillins Drug allergy (disorder) 4 [facility] (1 source) risperiDONE Drug Allergy 4 [facility] Medications Current Medications Medication Drug Class(es) Dates Sig (Normalized) Sig (Original) acetaminophen 500 mg oral tablet (19 sources) Start: 12-25-2023 take 2 tablets by [...] 1 TABLET PO EVERY 6 HOURS NEEDED 03 20April 14, 2022 Start: 03-04-2016 End: 01-07-2018 Hydrocodone-Acetaminophen [...] 5-500 M G TABS As needed HYDROCODONE-ACETAMINOPHEN [id number] Aleta Castellanos RN Start: 11-08-2011 End: 11-09-2011 LORTAB 5-500 MG TABS As need ed HYDROCODONE-ACETAMINOPHEN [id number] Bart Olivarez MD ALPRAZolam 0.25 mg disintegrating oral tablet (1 source) Benzodiazepine Start: 05-27-2019 ALPRAZolam (NIRAVAM) dissolvable tablet 0.25 mg aspirin 81 mg chewable tablet (20 sources) Nonsteroidal Anti-inflammatory Drug Start: 06-29-2023 take 1 tablet by mouth twice daily Aspirin 81 mg Tablet,Chewable Active 81 mg PO TWICE A DAY 0 December 25, 2023 12:00am Start: 09-02-2010 End: 04-21-2024 Aspirin (Adult Low Dose Aspi rin) 81 mg tablet,delayed release (DR/EC) Discontinued 81 mg PO daily December 31, 2017 12:00am January 07, 2018 12:58pm Start: 09-02-2010 take 1 tablet by nasrin th once daily ASPIRIN 81 MG TABS One tablet by mouth daily ASPIRIN [id number] Nurysmary Barnardward Comment on above: Take 81 mg by [...] Plus High Protein) 0.08 gram-1.5 kcal/mL Liquid (5 sources) Start: 12-25-19 Food Supplemt, Lactose-Reduced (Ensure Plus High Protein) 0.08 gram-1.5 kcal/mL Liquid Active 120 mL PO TWICE A DAY 0 December 25, 2023 12:00am 1 ml hydrALAZINE hydrochloride 20 mg/ml injection (1 source) Arteriolar Vasodilator Start: 05-27-20 hydrALAZINE (APRESOLINE) injection 5 mg 1 ml HYDROmorphone hydrochloride 1 mg/ml cartridge (3 sources) Opioid Agonist Start: 05-27-20 HYDROmorphone (DILAUDID) injection 0.5 mg Start: 05-27-2019 [...] DAILY November 20, 2018 12:00am Multivitamin tablet (5 sources) Start: 11-20-2018 Multivitamin t ablet Active [...] promethazine (PHENERGAN) injection 6.25 mg VITAL TEARS (9 sources) Start: 09-08-2023 VITAL TEARS Ac tive [...] Drug Class(es) Dates Sig (Normalized) Sig (Original) [id number] actuat albuterol 0.09 mg/actuat metered dose [...] Start: 04-16-2015 take 1 tablet by nasrin once daily ATORVASTATIN CALCIUM 20 MG TABS One tablet by mouth daily ATORVASTATIN CALCIUM [id number] Michelle Hooper NP Comment on above: Take 40 mg by mouth once daily. B COMPLEX-C (4 sources) Start: 10-11-2012 take 1 tablet by mouth once daily VITAMIN B COMPLEX-C CAPS One tablet by mouth daily B COMPLEX-C [id number] Bart Olivarez MD Start: 10-11-2012 End: 04-08-2013 take 1 tablet by mouth once daily VITAMIN B COMPLEX-C CAPS One tablet by mouth daily B COMPLEX-C [id number] Julissa Da Silva PA-C calcium carbonate / vitamin D (4 sources) Start: 09-02-2010 End: 04-08-2013 take 1 tablet by mouth once daily CALCIUM CARBONATE-VITAMIN D 600-125 MG-UNIT TABS One tablet by mouth daily CALCIUM CARBONATE-VITAMIN D [id number] Julissa Da Silva PA-C Start: 09-02-2010 take 1 tablet by nasirn th once daily CALCIUM CARBONATE-VITAMIN D 600-125 MG-UNIT TABS One tablet by mouth daily CALCIUM CARBONATE-VITAMIN D [id number] Nurys Nettles carbidopa 25 mg / levodopa [...] Start: 04-08-2013 take 1 tablet by nasrin three times daily CARBIDOPA-LEVODOPA 25-100 MG TABS One tablet by mouth three times daily CARBIDOPA-LEVODOPA [id number] Julissa Da Silva PA-C Comment on above: 1.5 tablet 3 times a day Take 1 tablet by nasrin three times daily. 12 tablet 3 times a day 2 tablet 3 times a d ay at 8am, 1pm and 6pm carvedilol 3.125 mg oral tablet (20 sources) alpha-Adrenergic Dorene, beta-Adrenergic Dorene Start: 01-17-20 End: 05-21-20 take 1 tablet by mouth twice daily Carvedilol 3.125 mg tablet Discontinued 3.125 mg PO TWICE A DAY 180 April 07, 2019 2:51pm May 21, 2019 1:47pm cholecalciferol 0.025 mg oral tablet (20 sources) Vitamin D Start: 01-01-20 End: 11-21-19 19 take 1 tablet by mouth once daily Cholecalciferol (Vitamin D3) 1,000 unit tablet Discontinued 1000 U PO daily December 31, 2017 12:00am November 20, 2018 12:58pm GLUCOSAMINE-CHONDROITIN CAPS (4 sources) Start: 09-03-19 11 End: 04-08-20 13 take 1 tablet by mouth once daily GLUCOSAMINE-CHONDROITIN CAPS One tablet by mouth daily GLUCOSAMINE-CHONDROITIN CAPS [id number] Julissa Da Silva PA-C Start: 09-02-2010 take 1 tablet by nasrin th once daily GLUCOSAMINE-CHONDROITIN CAPS One tablet by mouth daily GLUCOSAMINE-CHONDROITIN CAPS [id number] Nurys Nettles CINNAMON CAPS (4 sources) Non-Standardized Food Allergenic Extract Start: 11-23-2014 End: 06-25-2015 take 2 tablets by mouth once daily CINNAMON CAPS Two tablets by mouth daily CINNAMON CAPS [id number] Julissa Da Silva PA-C Start: 11-23-2014 take 2 tablets by mo uth once daily CINNAMON CAPS Two tablets by mouth daily CINNAMON CAPS [id number] Bart Olivarez MD 50 ml clindamycin 12 [...] 12:58pm Start: 11-09-2011 take 1 tablet by nsarin th once daily CO Q-10 100 MG CAPS One tablet by mouth daily COENZYME Q10 [id number] Bart Olivarez MD dexamethasone sod phos-bupiv (TAP) [...] th once daily CARDIZEM CD 120 MG [id number] One tablet by mouth daily DILTIAZEM HCL COATED BEADS [id number] Bart Olivarez MD docusate sodium 50 mg / sennosides, long-term 8.6 mg oral capsule (8 sources) Start: 11-02-2023 End: 11-20-2023 Sennosides-Docusate Sodium [...] MG /GM CREA Take as directed ESTRADIOL [id number] Bart Olivarez MD Start: 09-02-2010 VAGIFEM TABS 2 5mcg 1 per vagina Q HS ESTRADIOL TABS [id number] Nurys Nettles ezetimibe 10 mg oral tablet (6 sources) Dietary Cholesterol Absorption Inhibitor Start: 09-02-2010 End: 11-23-2014 take 1 tablet by mouth once daily ZETIA 10 MG TABS One tablet by mouth daily EZETIMIBE [id number] Bart Olivarez MD famotidine 40 mg oral tablet (15 sources) Histamine-2 Receptor Antagonist Start: 08-10-2023 End: [...] by mouth daily OMEGA-3 FATTY ACIDS CAPS [id number] Nurys Nettles furosemide 20 mg oral tablet [...] 27, 2018 3:36pm April 22, 2019 2:28pm [id number] CAPS (4 sources) Start: 04-08-2013 take 1 tablet by mouth once daily DEPLIN 15 CAPS One tablet by mouth daily [id number] CAPS [id number] Bart Olivarez MD Start: 04-08-2013 DEPLIN 15 CAPS O-IYPYMHBWVFOO-ROIAN CAPS [id number] REBEL ShresthaC levomefolate (20 sources) Start: 12-31-2017 End: 01-07-2018 [...] tablet by mouth daily As needed MELOXICAM [id number] Nurys Nettles 24 hr metoprolol succinate 25 [...] by mouth daily As needed MONTELUKAST SODIUM [id number] Julissa Da Silva PA-C MULTIPLE VITAMIN (4 sources) Start: 3 take 1 tablet by mouth once daily MULTIVITAMINS TABS One tablet by mouth daily MULTIPLE VITAMIN [id number] Bart Olivarez MD Start: 10-11-2012 End: 04-08-2013 take 1 tablet by mouth once daily MULTIVITAMINS TABS One tablet by mouth daily MULTIPLE VITAMIN [id number] Julissa Da Silva PA-C MULTIVITAMIN ORAL (20 sources) End: 04-21-2024 MULTIVITAMIN ORAL Take by [facility] once daily. 04/21/2024 Discontinued MULTIVITAMIN ORA L Take by mouth once daily. 0 Active Comment on above: Take by mouth once d aily. olopatadine 1 mg/ml ophthalmic solution (4 sources) Histamine-1 Receptor Inhibitor Start: 1 End: 2 PATANOL 0.1 % SOLN As needed OLOPATADINE HCL [id number] Bart Olivarez MD Larose-3 Fatty Acids (Fish Oil Concentrate) 1,000 mg capsule (20 sources) Start: 8 End: 8 take 1 capsule by mouth once daily Larose-3 Fatty Acids (Fish Oil Concentrate) 1,000 mg capsule Discontinued 1000 MG PO daily December 31, 2017 3:53pm May 27, 2018 2:53pm Start: 12-31-2017 End: 05-27-2018 take 1 capsule by mouth once daily Larose-3 Fatty Acids (Fish Oil Concentrate) 1,000 mg capsule Discontinued 1000 mg PO daily December 31, 2017 12:00am May 27, 2018 2:53pm Start: 12-31-2017 End: 05-27-2018 take 1 capsule by mouth once daily Larose-3 Fatty Acids (Fish Oil Concentrate) 1,000 mg capsule Discontinued 1000 MG PO daily December 30, 2017 11:00pm May 27, 2018 1:53pm Start: 12-31-2017 End: 05-27-2018 take 1 capsule by mouth once daily Larose-3 Fatty Acids (Fish Oil Concentrate) 1,000 mg [...] 1 % SOLN PRN PREDNISOLONE SODIUM PHOSPHATE [id number] Bart Olivarez MD VIT-FE FUMARATE-FA TABS (2 sources) Start: 09-02-2010 take 1 tablet by mouth once daily TABS Multi 0.4mg One tablet by mouth daily VIT-FE FUMARATE-FA TABS [id number] Nurys Nettles psyllium 3400 mg powder for [...] as needed. risperiDONE 0.5 mg oral tablet (14 sources) Atypical Antipsychotic Start: 11-07-19 End: 11-20-19 [...] 7:41am Start: 09-14-2023 End: 10-03-2023 Vital Tears (7 sources) Start: 10-03-2023 End: 11-02-2023 Vital Tears Discontinued 1 N MA EACH EYE THREE TIMES A DAY 0 October 03, 2023 12:00am November 02, 2023 4:40pm Start: 10-03-2023 Vital Tears Ac tive 1 drp EACH EYE THREE TIMES A DAY 0 October 03, 2023 12:00am vitamin b12 1 mg sublingual tablet (16 sources) Vitamin B12 Start: 09-08-2023 End: 12-22-2023 take 1 tablet under the tongue once daily Cyanocobalamin (Vitamin B-12) 1,000 mcg tablet, sublingual Discontinued 1000 ug SL DAILY September 08, 2023 12:00am December 22, 2023 7:07pm Start: 01-08-2017 take 1 tablet by nasrin once daily B-12 1000 MCG CAPS One tablet by mouth daily CYANOCOBALAMIN [id number] Bart Olivarez MD End: 04-21-2024 take 1 tablet by mouth once daily cyanocobalamin (VITAMIN B-12) 1,000 mcg tab Take 1,000 mcg by mouth once daily. 04/21/2024 Discontinued Comment on above: Take 1,000 mcg by mo [facility] once daily. Vitamin B Complex (B Complex-Vitamin [...] TABS Two tablets by mouth daily CHOLECALCIFEROL [id number] Bart Olivarez MD Start: 09-02-2010 End: 11-09-2011 take 1 tablet by mouth once daily VITAMIN D 1000 UNIT TABS One tablet by mouth daily CHOLECALCIFEROL [id number] Bart Olivarez MD WHEAT DEXTRIN (3 sources) Start: 11-23-2014 BENEFIBER POWD 1 tsp daily WHEAT DEXTRIN [id number] Bart Olivarez MD End: 2019 take 4 [...] unspecified] Onset: 11-14-2024 Deficiency and other anemia (9 sources) Anemia; Translations: [Anemia, unspecified] 09-10-2023 Episodic Deficiency and other anemia (1 source) Anemia, unspecified; Translations: [Anemia, unspecified] 09-14-2023 Episodic Diseases of white blood cells (20 sources) Leukocytosis; Translations: [Elevated white blood cell count, unspecified] Onset: 07-21-2011 07-21-2011 Chronic Disorders of lipid metabolism (20 sources) Hyperlipidemia; Translations: [Hyperlipidemia, unspecified] Onset: 09-02-2010 09-02-2010 Chronic Diverticulosis and diverticulitis (20 sources) Diverticulosis of colon; Translations: [Diverticulosis of large intestine without perforation or abscess without bleeding] Onset: 12-05-2006 04-18-2010 Chronic E Codes: Adverse effects of medical drugs (5 sources) Adverse reaction to drug; Translations: [Adverse effect of unspecified drugs, medicaments and biological substances, initial encounter] 11-30-2023 Episodic Comment on above: Risperdal. Syncope, slurred speech, hallucinations, severe confusion E Codes: Fall (20 sources) Fall; Translations: [Unspecified fall, initial encounter] 06-18-2019 Episodic Esophageal disorders (11 sources) Gastroesophageal reflux disease; Translations: [Gastro-esophageal reflux disease without esophagitis] 09-14-2023 Chronic Essential hypertension (20 sources) Essential hypertension; Translations: [Essential (primary) hypertension] Chronic Fluid and electrolyte disorders (20 sources) Dehydration; Translations: [Dehydration] 2022 Episodic Fracture of neck of femur (hip) (10 sources) Fracture of unspecified part of neck of right femur, initial encounter for closed fracture; Translations: [Displaced fracture of neck of right femur] 01-02-2024 Episodic Fracture of upper limb (11 sources) Closed fracture of humerus; Translations: [Unspecified fracture of shaft of humerus, unspecified arm, initial encounter for closed fracture] Onset: 11-19-2024 11-09-2023 Episodic Comment on above: Proximal right humer us due to a fall - non-surgical Genitourinary symptoms and ill-defined conditions (5 sources) History of chronic renal impairment; Translations: [...] exposure to other viral communicable disease] Episodic Malaise and fatigue (20 sources) Fatigue; Translations: [Asthenia] Onset: 06-26-2016 06-26-2016 Episodic Non-Hodgkin`s lymphoma (20 sources) History of malignant lymphoma; Translations: [Personal history of other malignant neoplasms of lymphoid, hematopoietic and related tissues] Onset: 12-15-2013 12-15-2013 Episodic Nutritional deficiencies (10 sources) Ascorbic acid deficiency; Translations: [Ascorbic acid deficiency] 11-07-2023 Episodic Open wounds of extremities (20 sources) Laceration of lower limb; Translations: [Laceration without foreign body, unspecified lower leg, initial encounter] Episodic Open wounds of head; neck; and [...] Onset: 09-14-2009 09-15-2011 Chronic Other circulatory disease (8 sources) Orthostatic hypotension; Translations: [Orthostatic hypotension] 09-14-2023 Episodic Other circulatory disease (3 sources) Orthostatic hypotension; Translations: [Orthostatic hypotension] 10-04-2023 Episodic Other circulatory disease (5 sources) History of transient ischemic attack; Translations: [...] Other hereditary and degenerative nervous system conditions (5 sources) 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; Translations: [Multi-system degeneration of the autonomic nervous system] 01-02-2024 Chronic Other hereditary and degenerative nervous system conditions (1 source) Sympathotonic orthostatic hypotension; Translations: [Multi-system degeneration of the autonomic nervous system] 10-20-2024 Chronic Other hereditary and degenerative nervous system conditions (1 source) Multi-system degeneration of the autonomic nervous system; 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)] Onset: 10-20-2024 Chronic Other injuries and conditions due to [...] injuries and conditions due to external causes (5 sources) Closed injury of head; Translations: [Unspecified injury of head, initial encounter] 11-30-2023 Episodic Other injuries and conditions due to external causes (5 sources) Open wound; Translations: [Other injury of unspecified body region, initial encounter] 06-07-2022 Episodic Other injuries and conditions due to external causes (5 sources) Abrasion and/or friction burn of multiple sites; Translations: [Unspecified multiple injuries, initial encounter] 11-03-2023 Episodic Other injuries and conditions due to external causes (5 sources) Injury of head; Translations: [Unspecified injury of head, initial encounter] 02-06-2024 Episodic Other nervous system disorders (8 sources) Disorder of brain; Translations: [Encephalopathy, unspecified] [...] [Dysarthria] 01-16-2023 Episodic Other nervous system disorders (5 sources) H/O: brain disorder; Translations: [Personal history of other diseases of the nervous system and sense organs] 01-02-2024 Episodic Other nervous system disorders (5 sources) Tremor; Translations: [Tremor, unspecified] 05-22-2024 Episodic Other screening for suspected conditions (not mental disorders or infectious disease) (2 sources) Patient encounter status; Translations: [Encounter for screening mammogram for malignant neoplasm of breast] Episodic Other upper respiratory infections (20 sources) Acute sinusitis; Translations: [Acute sinusitis, unspecified] Episodic Parkinson`s disease (20 sources) Parkinson's disease; Translations: [Parkinson's disease] Onset: 12-15-2009 Chronic Parkinson`s disease (1 source) Parkinson`s disease; Translations: [Parkinson's disease 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)] Onset: 09-15-2011 Pneumonia (except that caused by tuberculosis or sexually transmitted disease) (1 source) Pneumonia, unspecified organism; Translations: [Pneumonia, unspecified organism] Onset: 12-03-2024 Episodic Residual codes; unclassified (2 sources) Insomnia; Translations: [...] cerebral ischemic attack, unspecified] 06-28-2023 Chronic Unclassified (5 sources) Dementia due to Parkinson's disease; 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] 01-02-2024 Chronic Unclassified (2 sources) Long-term drug therapy; Translations: [Other longterm (current) drug therapy] Onset: 09-02-2010 09-02-2010 Unclassified (1 source) Parkinsonism, unspecified; Translations: [Parkinsonism, unspecified] Onset: 11-19-2024 Past or Other Problems Problem Classification Problem Date Documented Date Episodic/Chronic Cardiac dysrhythmias (2 sources) Palpitations; Translations: [Palpitations] Onset: 1 09-02-2010 Episodic Heart valve disorders (2 sources) Heart murmur; Translations: [Cardiac murmur, unspecified] Onset: 1 09-02-2010 Episodic Hemorrhoids (20 sources) Internal hemorrhoids; Translations: [Other hemorrhoids] Onset: 7 04-18-2010 Episodic Neoplasms of unspecified nature or uncertain behavior (20 sources) Lymphoproliferative disorder; 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, hematopoietic and related tissue] Onset: 2 Episodic Other and unspecified benign neoplasm (2 [...] [Abnormal weight loss] Onset: 8 12-31-2017 Episodic Results Test Name Value Interpretation Reference Range Facility Absolute lymphocyte countOrd ered By: Odalis Saravia on 11-27-2024 Lymphocytes Auto (Unsp spec) [#/Vol] 6.85 10*3/uL High 0.83-4.51 [facility] Absolute neutrophil countOrd ered By: Odalis Saravia on 11-27-2024 Neutrophils (Bld) [#/Vol] 6.9 10*3/uL 2.0-7.7 [facility] Anion gap in Serum or Plasma Ordered By: Odalis Saravia on 11-27-2024 Anion gap [Moles/Vol] 12 mmol/L 5-15 [facility] Automated lymphocyte count a s percentage of total leukocytesOrdered By: Odalis Saravia on 11-27-2024 Lymphocytes/100 WBC Auto (Unsp spec) 42.1 % High 19-41 [facility] BUN/creatinine ratioOrdered By: Odalis Saravia on 11-27-2024 Urea nitrogen/Creatinine [Mass ratio] 28.1 mg/mg High 10-20 [facility] Basophil percentageOrdered B y: Odalis Saravia on 11-27-2024 Basophils/100 WBC (Bld) 2.6 % High 0-1 [facility] Blood manual differential co mment interpretation (narrative result)Ordered By: Odalis Saravia on 11-27-2024 Manual differential comment Porter (Bld) [Interp] COMMENT [facility] Comment on above: LYMPHOCYTOSIS. Carbon dioxide, total [Moles /volume] in Central venous bloodOrdered By: Odalis Saravia on 11-27-2024 CO2 [Moles/Vol] 23.6 mmol/L 21.0-32.0 [facility] Chloride assayOrdered By: Ila Saravia on 11-27-2024 Chloride [Moles/Vol] 102 mmol/L 98-108 [facility] Eosinophil percentageOrdered By: marcy Saravia on 11-27-2024 Eosinophils/100 WBC (Bld) 3.8 % 0-5 [facility] Erythrocyte distribution wid th ratioOrdered By: Odalis Saravia on 11-27-2024 Erythrocyte distribution width (RBC) [Ratio] 12.9 % 11.6-14.6 [facility] Erythrocyte distribution wid th standard deviationOrdered By: Odalis Saravia on 11-27-2024 Erythrocyte distribution width (RBC) [Ratio] 45.9 fl High 35.1-43.9 [facility] Glomerular filtration rate ( GFR) estimation/1.73 sq m using serum, plasma, or whole bOrdered By: Odalis Saravia on 11-27-2024 GFR/1.73 sq M.predicted among non-blacks MDRD (S/P/Bld) [Vol rate/Area] 51 mL/min/{1.73_m2} Low >60 [facility] Comment on above: mL/min/1.73m2 CKD-EP I Creatinine Equation (2020) Hematocrit Auto (Bld) [Volum e fraction]Ordered By: Odalis Saravia on 11-27-2024 Hematocrit (Bld) [Volume fraction] 33.1 % Low 37-47 [facility] Hemoglobin measurementOrdere d By: Odalis Saravia on 11-27-2024 Hemoglobin (Bld) [Mass/Vol] 11.0 g/dL Low 12.0-15.0 [facility] Immature granulocytes/100 WB C Auto (Bld)Ordered By: Odalis Saravia on 11-27-2024 Immature granulocytes/100 WBC (Bld) 0.500 % 0.0-0.9 [facility] Comment on above: IG% - Immature Granu locytes (promyelocytes, myelocytes and metamyelocytes) > 1% indicates that a LEFT SHIFT is Present. MCV (mean corpuscular volume ) determinationOrdered By: Odalis Saravia on 11-27-2024 MCV (RBC) [Entitic vol] 96.8 fL 81-99 [facility] Mean corpuscular hemoglobin (MCH) determinationOrdered By: Odalis Saravia on 11-27-2024 MCH (RBC) [Entitic mass] 32.2 pg High 27.0-32.0 [facility] Mean corpuscular hemoglobin concentration (MCHC) determinationOrdered By: Odalis Saravia on 11-27-2024 MCHC (RBC) [Mass/Vol] 33.2 g/dL 32-36 [facility] Mean platelet volume determi nationOrdered By: Odalis Saravia on 11-27-2024 Platelet mean volume (Bld) [Entitic vol] 9.2 fL 6.2-12.0 [facility] Monocyte percentageOrdered B y: Odalis Saravia on 11-27-2024 Monocytes/100 WBC (Bld) 8.8 % 0-10 [facility] Neutrophil percentageOrdered By: Ilabonniejeniffer Riccardoermiascarlito on 11-27-2024 Neutrophils/100 WBC (Bld) 42.2 % Low 47-70 [facility] Nucleated red blood cell per centageOrdered By: Ilabonniejeniffer Riccardoermiascarlito on 11-27-2024 Nucleated RBC/100 WBC (Bld) [Ratio] 0 % 0-5 [facility] Platelet countOrdered By: Ila marcy Riccardomary on 11-27-2024 Platelets (Bld) [#/Vol] 571 10*3/uL High 150-450 [facility] Potassium measurement (mass/ volume)Ordered By: Odalis Saravia on 11-27-2024 Potassium (Unsp spec) [Mass/Vol] 4.5 mmol/L 3.3-5.1 [facility] RBC Auto (Bld) [#/Vol]Ordere d By: Odalis Riccardomary on 11-27-2024 RBC (Bld) [#/Vol] 3.42 10*6/uL Low 4.2-5.4 [facility] Serum creatinine measurement (mass/volume)Ordered By: Ilamarcy Guermiascarlito on 11-27-2024 Creatinine [Mass/Vol] 1.05 mg/dL 0.70-1.20 [facility] Serum glucose measurement (m ass/volume)Ordered By: Ilabonnielavonnelaila Guermiascarlito on 11-27-2024 Glucose [Mass/Vol] 88 mg/dL 70-99 [facility] Serum or plasma calcium fran urement (mass/volume)Ordered By: Ilabonnielavonnelaila Guermiascarlito on 11-27-2024 Calcium [Mass/Vol] 9.4 mg/dL 7.6-11.0 [facility] Serum or plasma urea nitroge n measurement (mass/volume)Ordered By: Odalis Guermiascarlito on 11-27-2024 Urea nitrogen [Mass/Vol] 30 mg/dL High 4-19 [facility] Sodium levelOrdered By: Candice jeniffer Manjit on 11-27-2024 Sodium [Moles/Vol] 138 mmol/L 133-145 [facility] White blood cell (WBC) count Ordered By: Odalis Saravia on 11-27-2024 WBC (Bld) [#/Vol] 16.3 10*3/uL High 4.4-11.0 [facility] Urine Legionella pneumophila antigen detectionOrdered By: Odalis Saravia on 11-26-2024 L. pneumophila Ag Ql (U) [facility] Absolute lymphocyte countOrd ered By: Odalis Saravia on 10-23-2024 Lymphocytes Auto (Unsp spec) [#/Vol] 6.66 10*3/uL High 0.83-4.51 [facility] Absolute neutrophil countOrd ered By: Odalis Saravia on 10-23-2024 Neutrophils (Bld) [#/Vol] 3.5 10*3/uL 2.0-7.7 [facility] Anion gap in Serum or Plasma Ordered By: Odalis Saravia on 10-23-2024 Anion gap [Moles/Vol] 10 mmol/L 5-15 [facility] Automated lymphocyte count a s percentage of total leukocytesOrdered By: Odalis Saravia on 10-23-2024 Lymphocytes/100 WBC Auto (Unsp spec) 46.7 % High 19-41 [facility] BUN/creatinine ratioOrdered By: Odalis Saravia on 10-23-2024 Urea nitrogen/Creatinine [Mass ratio] 33.7 mg/mg High 10-20 [facility] Basophil percentageOrdered B y: Odalis Saravia on 10-23-2024 Basophils/100 WBC (Bld) 3.1 % High 0-1 [facility] Bilirubin directOrdered By: Odalis Saravia on 10-23-2024 Bilirubin.direct [Mass/Vol] 0.14 mg/dL 0.00-0.30 [facility] Bilirubin, totalOrdered By: Odalis Saravia on 10-23-2024 Bilirubin [Mass/Vol] 0.35 mg/dL 0.00-1.30 [facility] Calculated very low density lipoprotein (VLDL) cholesterol measurementOrdered By: Odalis Saravia on 10-23-2024 Calculated very low density lipoprotein (VLDL) cholesterol measurement 25 mg/dL 5-40 [facility] Carbon dioxide, total [Moles /volume] in Central venous bloodOrdered By: Odalis Saravia on 10-23-2024 CO2 [Moles/Vol] 24.0 mmol/L 21.0-32.0 [facility] Chloride assayOrdered By: Ila aSravia on 10-23-2024 Chloride [Moles/Vol] 103 mmol/L 98-108 [facility] Eosinophil percentageOrdered By: Odalis Saravia on 10-23-2024 Eosinophils/100 WBC (Bld) 14.9 % High 0-5 [facility] Erythrocyte distribution wid th ratioOrdered By: Odalis Saravia on 10-23-2024 Erythrocyte distribution width (RBC) [Ratio] 13.1 % 11.6-14.6 [facility] Erythrocyte distribution wid th standard deviationOrdered By: Odalis Saravia on 10-23-2024 Erythrocyte distribution width (RBC) [Ratio] 47.2 fl High 35.1-43.9 [facility] Glomerular filtration rate ( GFR) estimation/1.73 sq m using serum, plasma, or whole bOrdered By: Odalis Saravia on 10-23-2024 GFR/1.73 sq M.predicted among non-blacks MDRD (S/P/Bld) [Vol rate/Area] 56 mL/min/{1.73_m2} Low >60 [facility] Comment on above: mL/min/1.73m2 CKD-EP I Creatinine Equation (2020) Hematocrit Auto (Bld) [Volum e fraction]Ordered By: Odalis Saravia on 10-23-2024 Hematocrit (Bld) [Volume fraction] 35.2 % Low 37-47 [facility] Hemoglobin measurementOrdere d By: Odalis Saravia on 10-23-2024 Hemoglobin (Bld) [Mass/Vol] 11.6 g/dL Low 12.0-15.0 [facility] Immature granulocytes/100 WB C Auto (Bld)Ordered By: Odalis Saravia on 10-23-2024 Immature granulocytes/100 WBC (Bld) 0.200 % 0.0-0.9 [facility] Comment on above: IG% - Immature Granu locytes (promyelocytes, myelocytes and metamyelocytes) > 1% indicates that a LEFT SHIFT is Present. LDL calc ser/plasOrdered By: Odalis Saravia on 10-23-2024 Cholesterol in LDL [Mass/Vol] 123 mg/dL [facility] Comment on above: Buavjznldr=293-146 m g/dL & Higher Vfzo=979 mg/dL or greater Laboratory - Chemistry and C hemistry - challengeOrdered By: Odalis Saravia on 10-23-2024 AST [Catalytic activity/Vol] 44 U/L High <32 [facility] MCV (mean corpuscular volume ) determinationOrdered By: Odalis Saravia on 10-23-2024 MCV (RBC) [Entitic vol] 97.5 fL 81-99 [facility] Mean corpuscular hemoglobin (MCH) determinationOrdered By: Odalis Saravia on 10-23-2024 MCH (RBC) [Entitic mass] 32.1 pg High 27.0-32.0 [facility] Mean corpuscular hemoglobin concentration (MCHC) determinationOrdered By: Odalis Saravia on 10-23-2024 MCHC (RBC) [Mass/Vol] 33.0 g/dL 32-36 [facility] Mean platelet volume determi nationOrdered By: Odalis Saravia on 10-23-2024 Platelet mean volume (Bld) [Entitic vol] 10.2 fL 6.2-12.0 [facility] Monocyte percentageOrdered B y: Odalis Saravia on 10-23-2024 Monocytes/100 WBC (Bld) 10.7 % High 0-10 [facility] Neutrophil percentageOrdered By: Odalis Saravia on 10-23-2024 Neutrophils/100 WBC (Bld) 24.4 % Low 47-70 [facility] Nucleated red blood cell per centageOrdered By: Odalis Saravia on 10-23-2024 Nucleated RBC/100 WBC (Bld) [Ratio] 0 % 0-5 [facility] Platelet countOrdered By: Ila Saravia on 10-23-2024 Platelets (Bld) [#/Vol] 339 10*3/uL 150-450 [facility] Potassium measurement (mass/ volume)Ordered By: Odalis Saravia on 10-23-2024 Potassium (Unsp spec) [Mass/Vol] 4.5 mmol/L 3.3-5.1 [facility] RBC Auto (Bld) [#/Vol]Ordere d By: Odalis Saravia on 10-23-2024 RBC (Bld) [#/Vol] 3.61 10*6/uL Low 4.2-5.4 [facility] Screening total cholesterol/ high density lipoprotein (HDL) cholesterol ratioOrdered By: Odalis Saravia on 10-23-2024 Cholesterol.total/Choles terol in HDL [Mass ratio] 4.11 {ratio} [facility] Serum creatinine measurement (mass/volume)Ordered By: Odalis Saravia on 10-23-2024 Creatinine [Mass/Vol] 0.97 mg/dL 0.70-1.20 [facility] Serum globulin measurementOr dered By: Odalis Saravia on 10-23-2024 Globulin (S) [Mass/Vol] 2.6 g/dL 2.2-4.2 [facility] Serum glucose measurement (m ass/volume)Ordered By: Odalis Saravia on 10-23-2024 Glucose [Mass/Vol] 85 mg/dL 70-99 [facility] Serum or plasma alanine ga otransferase (ALT) measurementOrdered By: Odalis Saravia on 10-23-2024 ALT [Catalytic activity/Vol] 15 U/L <35 [facility] Serum or plasma albumin fran urement (mass/volume)Ordered By: Odalis Saravia on 10-23-2024 Albumin [Mass/Vol] 3.8 g/dL 3.4-4.8 [facility] Serum or plasma alkaline karthik sphatase measurementOrdered By: Odalis Saravia on 10-23-2024 ALP [Catalytic activity/Vol] 176 U/L High 35-104 [facility] Serum or plasma calcium fran urement (mass/volume)Ordered By: Odalis Saravia on 10-23-2024 Calcium [Mass/Vol] 9.1 mg/dL 7.6-11.0 [facility] Serum or plasma cholesterol in HDL measurement (mass/volume)Ordered By: Odalis Saravia on 10-23-2024 Cholesterol in HDL [Mass/Vol] 48 mg/dL >40 [facility] Comment on above: National Cholesterol Education Program (NCEP) guidelines:<40 mg/dL: Low HDL-cholesterol (major risk factor for CHD)>= 60 mg/dL: High HDL-cholesterol (negative risk factor for CHD)HDL-cholesterol is affected by a number of factors, e.g. smoking, exercise, hormones, sex and age. Serum or plasma cholesterol measurement (mass/volume)Ordered By: Odalis Saravia on 10-23-2024 Cholesterol [Mass/Vol] 196 mg/dL <201 [facility] Comment on above: Cholesterol level, D esirable <200 mg/dLBorderline high cholesterol 200-239 mg/dLHigh cholesterol >=240 mg/dLRecommendations of the NCEP Adult Treatment Panel for the following risk-cutoff thresholds for the [place] population. Serum or plasma urea nitroge n measurement (mass/volume)Ordered By: Odalis Saravia on 10-23-2024 Urea nitrogen [Mass/Vol] 33 mg/dL High 4-19 [facility] Sodium levelOrdered By: Candice de los santosricardo Manjit on 10-23-2024 Sodium [Moles/Vol] 137 mmol/L 133-145 [facility] Total proteinOrdered By: Curtis saidalaila Saravia on 10-23-2024 Protein [Mass/Vol] 6.5 g/dL 5.9-8.4 [facility] Triglycerides measurementOrd ered By: Odalis Saravia on 10-23-2024 Triglyceride [Mass/Vol] 126 mg/dL <199 [facility] Comment on above: The drugs N-Acetylcy steine and Metamizole may falsely depress this assay. Normal range: <150 mg/dLBorderline High: 150-199 mg/dLHigh: 200-499 mg/dLVery High: >500 mg/dL Vitamin B12 ser/plasOrdered By: Odalis Saravia on 10-23-2024 Cobalamin (Vitamin B12) [Mass/Vol] 1049 pg/mL High 180-914 [facility] White blood cell (WBC) count Ordered By: Odalis Saravia on 10-23-2024 WBC (Bld) [#/Vol] 14.3 10*3/uL High 4.4-11.0 [facility] Absolute lymphocyte countOrd ered By: Odalis Saravia on 10-22-2024 Lymphocytes Auto (Unsp spec) [#/Vol] 6.78 10*3/uL High 0.83-4.51 [facility] Absolute neutrophil countOrd ered By: Odalis Saravia on 10-22-2024 Neutrophils (Bld) [#/Vol] 3.8 10*3/uL 2.0-7.7 [facility] Anion gap in Serum or Plasma Ordered By: Odalis Saravia on 10-22-2024 Anion gap [Moles/Vol] 10 mmol/L 5-15 [facility] Automated lymphocyte count a s percentage of total leukocytesOrdered By: Odalis Saravia on 10-22-2024 Lymphocytes/100 WBC Auto (Unsp spec) 49.3 % High 19-41 [facility] BUN/creatinine ratioOrdered By: Odalis Saravia on 10-22-2024 Urea nitrogen/Creatinine [Mass ratio] 29.8 mg/mg High 10-20 [facility] Basophil percentageOrdered B y: Odalis Saravia on 10-22-2024 Basophils/100 WBC (Bld) 3.5 % High 0-1 [facility] Bilirubin, totalOrdered By: Odalis Saravia on 10-22-2024 Bilirubin [Mass/Vol] 0.40 mg/dL 0.00-1.30 [facility] Carbon dioxide, total [Moles /volume] in Central venous bloodOrdered By: Odalis Saravia on 10-22-2024 CO2 [Moles/Vol] 23.1 mmol/L 21.0-32.0 [facility] Chloride assayOrdered By: Ila Saravia on 10-22-2024 Chloride [Moles/Vol] 104 mmol/L 98-108 [facility] Eosinophil percentageOrdered By: Odalis Saravia on 10-22-2024 Eosinophils/100 WBC (Bld) 10.4 % High 0-5 [facility] Erythrocyte distribution wid th ratioOrdered By: Odalis Saravia on 10-22-2024 Erythrocyte distribution width (RBC) [Ratio] 13.2 % 11.6-14.6 [facility] Erythrocyte distribution wid th standard deviationOrdered By: Odalis Saravia on 10-22-2024 Erythrocyte distribution width (RBC) [Ratio] 47.1 fl High 35.1-43.9 [facility] Glomerular filtration rate ( GFR) estimation/1.73 sq m using serum, plasma, or whole bOrdered By: Odalis Saravia on 10-22-2024 GFR/1.73 sq M.predicted among non-blacks MDRD (S/P/Bld) [Vol rate/Area] 60 mL/min/{1.73_m2} >60 [facility] Comment on above: mL/min/1.73m2 CKD-EP I Creatinine Equation (2020) Hematocrit Auto (Bld) [Volum e fraction]Ordered By: Odalis Saravia on 10-22-2024 Hematocrit (Bld) [Volume fraction] 35.2 % Low 37-47 [facility] Hemoglobin measurementOrdere d By: Odalis Saravia on 10-22-2024 Hemoglobin (Bld) [Mass/Vol] 11.6 g/dL Low 12.0-15.0 [facility] Immature granulocytes/100 WB C Auto (Bld)Ordered By: Odalis Saravia on 10-22-2024 Immature granulocytes/100 WBC (Bld) 0.300 % 0.0-0.9 [facility] Comment on above: IG% - Immature Granu locytes (promyelocytes, myelocytes and metamyelocytes) > 1% indicates that a LEFT SHIFT is Present. Laboratory - Chemistry and C hemistry - challengeOrdered By: Odalis Saravia on 10-22-2024 AST [Catalytic activity/Vol] 38 U/L High <32 [facility] MCV (mean corpuscular volume ) determinationOrdered By: Odalis Saravia on 10-22-2024 MCV (RBC) [Entitic vol] 96.2 fL 81-99 [facility] Mean corpuscular hemoglobin (MCH) determinationOrdered By: Odalis Saravia on 10-22-2024 MCH (RBC) [Entitic mass] 31.7 pg 27.0-32.0 [facility] Mean corpuscular hemoglobin concentration (MCHC) determinationOrdered By: Odalis Saravia on 10-22-2024 MCHC (RBC) [Mass/Vol] 33.0 g/dL 32-36 [facility] Mean platelet volume determi nationOrdered By: Odalis Saravia on 10-22-2024 Platelet mean volume (Bld) [Entitic vol] 10.3 fL 6.2-12.0 [facility] Monocyte percentageOrdered B y: Odalis Saravia on 10-22-2024 Monocytes/100 WBC (Bld) 9.1 % 0-10 [facility] Neutrophil percentageOrdered By: Odalis Saravia on 10-22-2024 Neutrophils/100 WBC (Bld) 27.4 % Low 47-70 [facility] Nucleated red blood cell per centageOrdered By: Odalis Saravia on 10-22-2024 Nucleated RBC/100 WBC (Bld) [Ratio] 0 % 0-5 [facility] Platelet countOrdered By: Ila Saravia on 10-22-2024 Platelets (Bld) [#/Vol] 346 10*3/uL 150-450 [facility] Platelet estimateOrdered By: Odalis Saravia on 10-22-2024 Platelets LM Ql (Bld) A ADEQ [facility] Potassium measurement (mass/ volume)Ordered By: Odalis Saravia on 10-22-2024 Potassium (Unsp spec) [Mass/Vol] 4.4 mmol/L 3.3-5.1 [facility] RBC Auto (Bld) [#/Vol]Ordere d By: Odalis Saravia on 10-22-2024 RBC (Bld) [#/Vol] 3.66 10*6/uL Low 4.2-5.4 [facility] Review by pathologistOrdered By: Odalis Saravia on 10-22-2024 Pathologist review Porter (Unsp spec) [Interp] Reviewed [facility] Comment on above: Previous reported re sult: Heide mckenna Edited by: IVAN on 11/06/24:1024SEE REPORT IN PATIENT'S EMR AMENDED REPORT 11/06/24 1024 PATH REV previously reported as: Heide mckenna Serum creatinine measurement (mass/volume)Ordered By: Odalis Saravia on 10-22-2024 Creatinine [Mass/Vol] 0.92 mg/dL 0.70-1.20 [facility] Serum globulin measurementOr dered By: Odalis Saravia on 10-22-2024 Globulin (S) [Mass/Vol] 2.8 g/dL 2.2-4.2 [facility] Serum glucose measurement (m ass/volume)Ordered By: Odalis Saravia on 10-22-2024 Glucose [Mass/Vol] 90 mg/dL 70-99 [facility] Serum or plasma alanine ga otransferase (ALT) measurementOrdered By: Odalis Saravia on 10-22-2024 ALT [Catalytic activity/Vol] 19 U/L <35 [facility] Serum or plasma albumin fran urement (mass/volume)Ordered By: Odalis Saravia on 10-22-2024 Albumin [Mass/Vol] 4.0 g/dL 3.4-4.8 [facility] Serum or plasma albumin/glob ulin mass ratioOrdered By: Odalis Saravia on 10-22-2024 Albumin/Globulin [Mass ratio] 1.4 {ratio} 0.9-2.4 [facility] Serum or plasma alkaline karthik sphatase measurementOrdered By: Odalis Saravia on 10-22-2024 ALP [Catalytic activity/Vol] 173 U/L High 35-104 [facility] Serum or plasma calcium fran urement (mass/volume)Ordered By: Odalis Riccardoermiascarlito on 10-22-2024 Calcium [Mass/Vol] 9.3 mg/dL 7.6-11.0 [facility] Serum or plasma urea nitroge n measurement (mass/volume)Ordered By: Odalis Saravia on 10-22-2024 Urea nitrogen [Mass/Vol] 28 mg/dL High 4-19 [facility] Sodium levelOrdered By: Candice Saravia on 10-22-2024 Sodium [Moles/Vol] 137 mmol/L 133-145 [facility] Teardrop cell detectionOrder ed By: Odalis Saravia on 10-22-2024 Dacrocytes LM Ql (Bld) 1+ [facility] Total proteinOrdered By: Curtis Saravia on 10-22-2024 Protein [Mass/Vol] 6.8 g/dL 5.9-8.4 [facility] White blood cell (WBC) count Ordered By: Odalis Saravia on 10-22-2024 WBC (Bld) [#/Vol] 13.7 10*3/uL High 4.4-11.0 [facility] CNOVon 10-20-2024 CNOV Office Visit (NRN) KAYLENE HAYNES ([id number]) 1935 F Date Time Provider Department 10/20/24 11:00 AM 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 You can also now schedule and select appointments through [employer]. MD Chrissy Quiros Kristin, MD 10/20/2024 11:40 AM Signed [facility] - FOLLOW UP EVALUATION Primary Movement Disorders Neurologist: Selvin Felder MD Primary Movement Disorders TONE: Not yet assigned Recording using [employer] software for draft documentation of the visit was discussed with the patient/authorized direct sales representative; all questions welcomed and answered. Patient/authorized direct sales representative agreed to proceed Howard Zimmerman MD [id number] [facility] [address] [facility] [address] Dear Howard Zimmerman MD: I had the [...] on the side of the bed to "get her bearings." She describes this sensation as a potential [...] endorse any fluid restrictions advised by a bus girl. She reports persistent fatigue, stating, "I just don't feel like I want to do anything." She believes she sleeps well at night [...] Prior Anti-Parkinson (more content not included)... Normal [facility] Absolute lymphocyte countOrd ered By: Odalis Saravia on 09-18-2024 Lymphocytes Auto (Unsp spec) [#/Vol] 6.98 10*3/uL High 0.83-4.51 [facility] Absolute neutrophil countOrd ered By: Odalis Saravia on 09-18-2024 Neutrophils (Bld) [#/Vol] 4.3 10*3/uL 2.0-7.7 [facility] Anion gap in Serum or Plasma Ordered By: Odalis Saravia on 09-18-2024 Anion gap [Moles/Vol] 12 mmol/L 5-15 [facility] Automated lymphocyte count a s percentage of total leukocytesOrdered By: Odalis Saravia on 09-18-2024 Lymphocytes/100 WBC Auto (Unsp spec) 46.1 % High 19-41 [facility] BUN/creatinine ratioOrdered By: Odalis Saravia on 09-18-2024 Urea nitrogen/Creatinine [Mass ratio] 21.8 mg/mg High 10-20 [facility] Basophil percentageOrdered B y: Odalis Saravia on 09-18-2024 Basophils/100 WBC (Bld) 2.9 % High 0-1 [facility] Bilirubin directOrdered By: Odalis Saravia on 09-18-2024 Bilirubin.direct [Mass/Vol] 0.19 mg/dL 0.00-0.30 [facility] Bilirubin, totalOrdered By: Odalis Saravia on 09-18-2024 Bilirubin [Mass/Vol] 0.42 mg/dL 0.00-1.30 [facility] Carbon dioxide, total [Moles /volume] in Central venous bloodOrdered By: Odalis Saravia on 09-18-2024 CO2 [Moles/Vol] 21.8 mmol/L 21.0-32.0 [facility] Chloride assayOrdered By: Ila Saravia on 09-18-2024 Chloride [Moles/Vol] 104 mmol/L 98-108 [facility] Eosinophil percentageOrdered By: Odalis Saravia on 09-18-2024 Eosinophils/100 WBC (Bld) 13.4 % High 0-5 [facility] Erythrocyte distribution wid th (RBC) [Ratio]Ordered By: Odalis Saravia on 09-18-2024 Erythrocyte distribution width (RBC) [Entitic vol] 46.9 fL High 35.1-43.9 [facility] Erythrocyte distribution wid th ratioOrdered By: Odalis Saravia on 09-18-2024 Erythrocyte distribution width (RBC) [Ratio] 13.2 % 11.6-14.6 [facility] Erythrocyte distribution wid th standard deviationOrdered By: Odalis Saravia on 09-18-2024 Erythrocyte distribution width (RBC) [Ratio] 46.9 fl High 35.1-43.9 [facility] GFR/1.73 sq M.predicted jitendra g non-blacks MDRD (S/P/Bld) [Vol rate/Area]Ordered By: Odalis Saravia on 09-18-2024 Estimated GFR (MDRD) Non-Af Amer 44 Low >60 [facility] Comment on above: mL/min/1.73m2 CKD-EP I Creatinine Equation (2020) Glomerular filtration rate ( GFR) estimation/1.73 sq m using serum, plasma, or whole bOrdered By: Odalis aSravia on 09-18-2024 GFR/1.73 sq M.predicted among non-blacks MDRD (S/P/Bld) [Vol rate/Area] 44 mL/min/{1.73_m2} Low >60 [facility] Comment on above: mL/min/1.73m2 CKD-EP I Creatinine Equation (2020) Hematocrit Auto (Bld) [Volum e fraction]Ordered By: Odalis Saravia on 09-18-2024 Hematocrit (Bld) [Volume fraction] 34.5 % Low 37-47 [facility] Hemoglobin measurementOrdere d By: Odalis Saravia on 09-18-2024 Hemoglobin (Bld) [Mass/Vol] 11.4 g/dL Low 12.0-15.0 [facility] Immature granulocytes/100 WB C Auto (Bld)Ordered By: Odalis Saravia on 09-18-2024 Immature granulocytes/100 WBC (Bld) 0.300 % 0.0-0.9 [facility] Comment on above: IG% - Immature Granu locytes (promyelocytes, myelocytes and metamyelocytes) > 1% indicates that a LEFT SHIFT is Present. Laboratory - Chemistry and C hemistry - challengeOrdered By: Odalis Saravia on 09-18-2024 AST [Catalytic activity/Vol] 41 U/L High <32 [facility] Lymphocytes Auto (Unsp spec) [#/Vol]Ordered By: Odalis Saravia on 09-18-2024 Lymphocytes (Bld) [#/Vol] 6.98 10*3/uL High 0.83-4.51 [facility] Lymphocytes/100 WBC Auto (Un sp spec)Ordered By: Odalis Saravia on 09-18-2024 Lymphocytes/100 WBC (Bld) 46.1 % High 19-41 [facility] MCV (mean corpuscular volume ) determinationOrdered By: Odalis Saravia on 09-18-2024 MCV (RBC) [Entitic vol] 96.6 fL 81-99 [facility] Mean corpuscular hemoglobin (MCH) determinationOrdered By: Odalis Saravia on 09-18-2024 MCH (RBC) [Entitic mass] 31.9 pg 27.0-32.0 [facility] Mean corpuscular hemoglobin concentration (MCHC) determinationOrdered By: Odalis Saravia on 09-18-2024 MCHC (RBC) [Mass/Vol] 33.0 g/dL 32-36 [facility] Mean platelet volume determi nationOrdered By: Odalis Saravia on 09-18-2024 Platelet mean volume (Bld) [Entitic vol] 10.4 fL 6.2-12.0 [facility] Monocyte percentageOrdered B y: Odalis Saravia on 09-18-2024 Monocytes/100 WBC (Bld) 8.8 % 0-10 [facility] Neutrophil percentageOrdered By: Odalis Saravia on 09-18-2024 Neutrophils/100 WBC (Bld) 28.5 % Low 47-70 [facility] Nucleated red blood cell per centageOrdered By: Odalis Saravia on 09-18-2024 Nucleated RBC/100 WBC (Bld) [Ratio] 0 % 0-5 [facility] Platelet countOrdered By: Ila Saravia on 09-18-2024 Platelets (Bld) [#/Vol] 328 10*3/uL 150-450 [facility] Potassium (Unsp spec) [Mass/ Vol]Ordered By: Odalis Saravia on 09-18-2024 Potassium [Moles/Vol] 4.5 mmol/L 3.3-5.1 [facility] Potassium measurement (mass/ volume)Ordered By: Odalis Saravia on 09-18-2024 Potassium (Unsp spec) [Mass/Vol] 4.5 mmol/L 3.3-5.1 [facility] RBC Auto (Bld) [#/Vol]Ordere d By: Odalis Saravia on 09-18-2024 RBC (Bld) [#/Vol] 3.57 10*6/uL Low 4.2-5.4 [facility] Serum creatinine measurement (mass/volume)Ordered By: Odalis Saravia on 09-18-2024 Creatinine [Mass/Vol] 1.19 mg/dL 0.70-1.20 [facility] Serum globulin measurementOr dered By: Odalis Saravia on 09-18-2024 Globulin (S) [Mass/Vol] 2.7 g/dL 2.2-4.2 [facility] Serum glucose measurement (m ass/volume)Ordered By: Odalis Saravia on 09-18-2024 Glucose [Mass/Vol] 83 mg/dL 70-99 [facility] Serum or plasma alanine ga otransferase (ALT) measurementOrdered By: Odalis Saravia on 09-18-2024 ALT [Catalytic activity/Vol] 5 U/L <35 [facility] Serum or plasma albumin fran urement (mass/volume)Ordered By: Odalis Saravia on 09-18-2024 Albumin [Mass/Vol] 3.8 g/dL 3.4-4.8 [facility] Serum or plasma alkaline karthik sphatase measurementOrdered By: Odalis Saravia on 09-18-2024 ALP [Catalytic activity/Vol] 142 U/L High 35-104 [facility] Serum or plasma calcium fran urement (mass/volume)Ordered By: Odalis Saravia on 09-18-2024 Calcium [Mass/Vol] 9.1 mg/dL 7.6-11.0 [facility] Serum or plasma urea nitroge n measurement (mass/volume)Ordered By: Odalis Saravia on 09-18-2024 Urea nitrogen [Mass/Vol] 26 mg/dL High 4-19 [facility] Sodium levelOrdered By: Candice de los santosricardo Manjit on 09-18-2024 Sodium [Moles/Vol] 137 mmol/L 133-145 [facility] Total proteinOrdered By: Curtis saidalaila Saravia on 09-18-2024 Protein [Mass/Vol] 6.5 g/dL 5.9-8.4 [facility] Vitamin B12 ser/plasOrdered By: Odalis Saravia on 09-18-2024 Cobalamin (Vitamin B12) [Mass/Vol] 1000 pg/mL High 180-914 [facility] Vitamin D, 25-hydroxyOrdered By: Odalis Saravia on 09-18-2024 Vitamin D 25-Hydroxy 42.0 ng/mL 30-100 [facility] Comment on above: Vitamin D StatusDefi ciency: <20 ng/mL (50nmol/L)Insufficiency: 20-30 ng/mL (50-75 nmol/L)Sufficiency: 30-100 ng/mL (75-250 nmol/L)Toxicity: >100 ng/mL (>250 nmol/L) White blood cell (WBC) count Ordered By: Odalis Saravia on 09-18-2024 WBC (Bld) [#/Vol] 15.1 10*3/uL High 4.4-11.0 [facility] Absolute lymphocyte countOrd ered By: Odalis Saravia on 09-11-2024 Lymphocytes Auto (Unsp spec) [#/Vol] 6.28 10*3/uL High 0.83-4.51 [facility] Absolute neutrophil countOrd ered By: Odalis Saravia on 09-11-2024 Neutrophils (Bld) [#/Vol] 4.3 10*3/uL 2.0-7.7 [facility] Anion gap in Serum or Plasma Ordered By: Odalis Saravia on 09-11-2024 Anion gap [Moles/Vol] 9 mmol/L 5-15 [facility] Automated lymphocyte count a s percentage of total leukocytesOrdered By: Odalis Riccardoermiascarlito on 09-11-2024 Lymphocytes/100 WBC Auto (Unsp spec) 45.1 % High 19-41 [facility] BUN/creatinine ratioOrdered By: Odalis Saravia on 09-11-2024 Urea nitrogen/Creatinine [Mass ratio] 27.1 mg/mg High 10-20 [facility] Basophil percentageOrdered B y: Odalis Saravia on 09-11-2024 Basophils/100 WBC (Bld) 3.2 % High 0-1 [facility] Carbon dioxide, total [Moles /volume] in Central venous bloodOrdered By: marcy Riccardomary on 09-11-2024 CO2 [Moles/Vol] 25.4 mmol/L 21.0-32.0 [facility] Chloride assayOrdered By: marcy Tocarlito on 09-11-2024 Chloride [Moles/Vol] 104 mmol/L 98-108 [facility] Eosinophil percentageOrdered By: Odalis Saravia on 09-11-2024 Eosinophils/100 WBC (Bld) 10.6 % High 0-5 [facility] Erythrocyte distribution wid th (RBC) [Ratio]Ordered By: bonniepleasantonlaila Tocarlito on 09-11-2024 Erythrocyte distribution width (RBC) [Entitic vol] 47.8 fL High 35.1-43.9 [facility] Erythrocyte distribution wid th ratioOrdered By: bonniepleasantonlaila Tocarlito on 09-11-2024 Erythrocyte distribution width (RBC) [Ratio] 13.3 % 11.6-14.6 [facility] Erythrocyte distribution wid th standard deviationOrdered By: Odalis Saravia on 09-11-2024 Erythrocyte distribution width (RBC) [Ratio] 47.8 fl High 35.1-43.9 [facility] GFR/1.73 sq M.predicted jitendra g non-blacks MDRD (S/P/Bld) [Vol rate/Area]Ordered By: Ilabonnielavonnelaila Guermiascarlito on 09-11-2024 Estimated GFR (MDRD) Non-Af Amer 53 Low >60 [facility] Comment on above: mL/min/1.73m2 CKD-EP I Creatinine Equation (2020) Glomerular filtration rate ( GFR) estimation/1.73 sq m using serum, plasma, or whole bOrdered By: Odalis Saravia on 09-11-2024 GFR/1.73 sq M.predicted among non-blacks MDRD (S/P/Bld) [Vol rate/Area] 53 mL/min/{1.73_m2} Low >60 [facility] Comment on above: mL/min/1.73m2 CKD-EP I Creatinine Equation (2020) Hematocrit Auto (Bld) [Volum e fraction]Ordered By: Odalis Saravia on 09-11-2024 Hematocrit (Bld) [Volume fraction] 37.5 % 37-47 [facility] Hemoglobin measurementOrdere d By: Odalis Saravia on 09-11-2024 Hemoglobin (Bld) [Mass/Vol] 12.2 g/dL 12.0-15.0 [facility] Immature granulocytes/100 WB C Auto (Bld)Ordered By: Candicepleasantonlaila Saravia on 09-11-2024 Immature granulocytes/100 WBC (Bld) 0.300 % 0.0-0.9 [facility] Comment on above: IG% - Immature Granu locytes (promyelocytes, myelocytes and metamyelocytes) > 1% indicates that a LEFT SHIFT is Present. Lymphocytes Auto (Unsp spec) [#/Vol]Ordered By: Odalis Saravia on 09-11-2024 Lymphocytes (Bld) [#/Vol] 6.28 10*3/uL High 0.83-4.51 [facility] Lymphocytes/100 WBC Auto (Un sp spec)Ordered By: Odalis Saravia on 09-11-2024 Lymphocytes/100 WBC (Bld) 45.1 % High 19-41 [facility] MCV (mean corpuscular volume ) determinationOrdered By: Odalis Saravia on 09-11-2024 MCV (RBC) [Entitic vol] 98.4 fL 81-99 [facility] Mean corpuscular hemoglobin (MCH) determinationOrdered By: Odalis Saravia on 09-11-2024 MCH (RBC) [Entitic mass] 32.0 pg 27.0-32.0 [facility] Mean corpuscular hemoglobin concentration (MCHC) determinationOrdered By: Odalis Saravia on 09-11-2024 MCHC (RBC) [Mass/Vol] 32.5 g/dL 32-36 [facility] Mean platelet volume determi nationOrdered By: Odalis Saravia on 09-11-2024 Platelet mean volume (Bld) [Entitic vol] 11.0 fL 6.2-12.0 [facility] Monocyte percentageOrdered B y: Efmarcy Toe on 09-11-2024 Monocytes/100 WBC (Bld) 9.8 % 0-10 [facility] Neutrophil percentageOrdered By: Efmarcy Saravia on 09-11-2024 Neutrophils/100 WBC (Bld) 31.0 % Low 47-70 [facility] Nucleated red blood cell per centageOrdered By: Odalis Saravia on 09-11-2024 Nucleated RBC/100 WBC (Bld) [Ratio] 0 % 0-5 [facility] Platelet countOrdered By: Ila bonniejeniffer Saravia on 09-11-2024 Platelets (Bld) [#/Vol] 267 10*3/uL 150-450 [facility] Platelet estimateOrdered By: Odalis Saravia on 09-11-2024 Platelets LM Ql (Bld) [facility] Platelets LM Ql (Bld)Ordered By: Odalis Saravia on 09-11-2024 Platelet Estimate A [facility] Potassium (Unsp spec) [Mass/ Vol]Ordered By: Odalis Saravia on 09-11-2024 Potassium [Moles/Vol] 4.5 mmol/L 3.3-5.1 [facility] Potassium measurement (mass/ volume)Ordered By: Odalis Saravia on 09-11-2024 Potassium (Unsp spec) [Mass/Vol] 4.5 mmol/L 3.3-5.1 [facility] RBC Auto (Bld) [#/Vol]Ordere d By: Odalis Toe on 09-11-2024 RBC (Bld) [#/Vol] 3.81 10*6/uL Low 4.2-5.4 [facility] Reactive lymphocyte countOrd ered By: Odalis Saravia on 09-11-2024 Reactive Lymphocytes 1+ [facility] Serum creatinine measurement (mass/volume)Ordered By: Odalis Riccardoermiascarlito on 09-11-2024 Creatinine [Mass/Vol] 1.02 mg/dL 0.70-1.20 [facility] Serum glucose measurement (m ass/volume)Ordered By: Ilabonnielavonnelaila Guermiascarlito on 09-11-2024 Glucose [Mass/Vol] 83 mg/dL 70-99 [facility] Serum or plasma calcium fran urement (mass/volume)Ordered By: Marthalaila Guermiascarlito on 09-11-2024 Calcium [Mass/Vol] 9.3 mg/dL 7.6-11.0 [facility] Serum or plasma urea nitroge n measurement (mass/volume)Ordered By: Ilabonnielavonnelaila Guermiascarlito on 09-11-2024 Urea nitrogen [Mass/Vol] 28 mg/dL High 4-19 [facility] Sodium levelOrdered By: Candice swift Riccardoermiascarlito on 09-11-2024 Sodium [Moles/Vol] 138 mmol/L 133-145 [facility] White blood cell (WBC) count Ordered By: Ilabonniejeniffer Riccardoermiascarlito on 09-11-2024 WBC (Bld) [#/Vol] 13.9 10*3/uL High 4.4-11.0 [facility] Absolute lymphocyte countOrd ered By: Ilabonnielavonnelaila Guermiascarlito on 08-14-2024 Lymphocytes Auto (Unsp spec) [#/Vol] 7.18 10*3/uL High 0.83-4.51 [facility] Absolute neutrophil countOrd ered By: Marthalaila Guermiascarlito on 08-14-2024 Neutrophils (Bld) [#/Vol] 3.4 10*3/uL 2.0-7.7 [facility] Automated lymphocyte count a s percentage of total leukocytesOrdered By: Ilabonnielavonnelaila Guermiascarlito on 08-14-2024 Lymphocytes/100 WBC Auto (Unsp spec) 55.1 % High 19-41 [facility] BUN/creatinine ratioOrdered By: Ilabonnielavonnelaila Guermiascarlito on 08-14-2024 Urea nitrogen/Creatinine [Mass ratio] 29.0 mg/mg High 10-20 [facility] Basophil percentageOrdered B y: Odalis Saravia on 08-14-2024 Basophils/100 WBC (Bld) 3.1 % High 0-1 [facility] Carbon dioxide measurementOr dered By: Odalis Guermiascarlito on 08-14-2024 CO2 [Moles/Vol] 22.8 mmol/L 22.0-29.0 [facility] Chloride measurementOrdered By: Odalis Saravia on 08-14-2024 Chloride [Moles/Vol] 104 mmol/L 96-108 [facility] Creatinine [Moles/Vol]Ordere d By: Odalis Guermiascarlito on 08-14-2024 Creatinine [Mass/Vol] 1.0 mg/dL 0.6-1.0 [facility] Eosinophil percentageOrdered By: Odalis Guermiascarlito on 08-14-2024 Eosinophils/100 WBC (Bld) 4.1 % 0-5 [facility] Erythrocyte distribution wid th (RBC) [Ratio]Ordered By: Odalis Saravia on 08-14-2024 Erythrocyte distribution width (RBC) [Entitic vol] 48.2 fL High 35.1-43.9 [facility] Erythrocyte distribution wid th ratioOrdered By: Odalis Guermiascarlito on 08-14-2024 Erythrocyte distribution width (RBC) [Ratio] 13.4 % 11.6-14.6 [facility] Erythrocyte distribution wid th standard deviationOrdered By: Odalis uGermiascarlito on 08-14-2024 Erythrocyte distribution width (RBC) [Ratio] 48.2 fl High 35.1-43.9 [facility] GFR/1.73 sq M.predicted jitendra g non-blacks MDRD (S/P/Bld) [Vol rate/Area]Ordered By: Odalis Saravia on 08-14-2024 Estimated GFR (MDRD) Non-Af Amer 54 Low >60 [facility] Comment on above: mL/min/1.73m2 CKD-EP I Creatinine Equation (2020) Glomerular filtration rate ( GFR) estimation/1.73 sq m using serum, plasma, or whole bOrdered By: Odalis Saravia on 08-14-2024 GFR/1.73 sq M.predicted among non-blacks MDRD (S/P/Bld) [Vol rate/Area] 54 mL/min/{1.73_m2} Low >60 [facility] Comment on above: mL/min/1.73m2 CKD-EP I Creatinine Equation (2020) Hematocrit Auto (Bld) [Volum e fraction]Ordered By: Odalis Saravia on 08-14-2024 Hematocrit (Bld) [Volume fraction] 35.0 % Low 37-47 [facility] Hemoglobin measurementOrdere d By: Odalis Saravia on 08-14-2024 Hemoglobin (Bld) [Mass/Vol] 11.5 g/dL Low 12.0-15.0 [facility] Immature granulocytes/100 WB C Auto (Bld)Ordered By: Odalis Saravia on 08-14-2024 Immature granulocytes/100 WBC (Bld) 0.200 % 0.0-0.9 [facility] Comment on above: IG% - Immature Granu locytes (promyelocytes, myelocytes and metamyelocytes) > 1% indicates that a LEFT SHIFT is Present. Lymphocytes Auto (Unsp spec) [#/Vol]Ordered By: Odalis Saravia on 08-14-2024 Lymphocytes (Bld) [#/Vol] 7.18 10*3/uL High 0.83-4.51 [facility] Lymphocytes/100 WBC Auto (Un sp spec)Ordered By: Odalis Saravia on 08-14-2024 Lymphocytes/100 WBC (Bld) 55.1 % High 19-41 [facility] MCV (mean corpuscular volume ) determinationOrdered By: Odalis Saravia on 08-14-2024 MCV (RBC) [Entitic vol] 97.2 fL 81-99 [facility] Mean corpuscular hemoglobin (MCH) determinationOrdered By: Odalis Saravia on 08-14-2024 MCH (RBC) [Entitic mass] 31.9 pg 27.0-32.0 [facility] Mean corpuscular hemoglobin concentration (MCHC) determinationOrdered By: Odalis Saravia on 08-14-2024 MCHC (RBC) [Mass/Vol] 32.9 g/dL 32-36 [facility] Mean platelet volume determi nationOrdered By: Odalis Saravia on 08-14-2024 Platelet mean volume (Bld) [Entitic vol] 10.0 fL 6.2-12.0 [facility] Monocyte percentageOrdered B y: Odalis Saravia on 08-14-2024 Monocytes/100 WBC (Bld) 11.4 % High 0-10 [facility] Neutrophil percentageOrdered By: Odalis Saravia on 08-14-2024 Neutrophils/100 WBC (Bld) 26.1 % Low 47-70 [facility] Nucleated red blood cell per centageOrdered By: Odalis Saravia on 08-14-2024 Nucleated RBC/100 WBC (Bld) [Ratio] 0 % 0-5 [facility] Platelet countOrdered By: Ila bonniejeniffer Saravia on 08-14-2024 Platelets (Bld) [#/Vol] 372 10*3/uL 150-450 [facility] RBC Auto (Bld) [#/Vol]Ordere d By: Odalis Saravia on 08-14-2024 RBC (Bld) [#/Vol] 3.60 10*6/uL Low 4.2-5.4 [facility] Reactive lymphocyte countOrd ered By: Odalis Saravia on 08-14-2024 Reactive Lymphocytes 2+ [facility] Serum glucose measurement (m ass/volume)Ordered By: Odalis Saravia on 08-14-2024 Glucose [Mass/Vol] 85 mg/dL 70-99 [facility] Serum or plasma anion gap de termination (moles/volume)Ordered By: Odalis Saravia on 08-14-2024 Anion gap [Moles/Vol] 12 mmol/L 5-15 [facility] Serum or plasma calcium fran urement (mass/volume)Ordered By: Odalis Saravia on 08-14-2024 Calcium [Mass/Vol] 9.5 mg/dL 7.6-11.0 [facility] Serum or plasma creatinine m easurement (moles/volume)Ordered By: Odalis Saravia on 08-14-2024 Creatinine [Moles/Vol] 1.0 mg/dL 0.6-1.0 [facility] Serum or plasma potassium me asurementOrdered By: Odalis Saravia on 08-14-2024 Potassium [Moles/Vol] 4.5 mmol/L 3.3-5.1 [facility] Serum or plasma sodium measu rement (moles/volume)Ordered By: Odalis Saravia on 08-14-2024 Sodium [Moles/Vol] 138 mmol/L 133-145 [facility] Serum or plasma urea nitroge n measurement (mass/volume)Ordered By: Odalis Saravia on 08-14-2024 Urea nitrogen [Mass/Vol] 29 mg/dL High 4-19 [facility] White blood cell (WBC) count Ordered By: Odalis Saravia on 08-14-2024 WBC (Bld) [#/Vol] 13.0 10*3/uL High 4.4-11.0 [facility] Absolute lymphocyte countOrd ered By: Odalis Saravia on 07-17-2024 Lymphocytes Auto (Unsp spec) [#/Vol] 8.58 10*3/uL High 0.83-4.51 [facility] Absolute neutrophil countOrd ered By: Candicepleasantonlaila Saravia on 07-17-2024 Neutrophils (Bld) [#/Vol] 4.1 10*3/uL 2.0-7.7 [facility] Automated lymphocyte count a s percentage of total leukocytesOrdered By: Odalis Saravia on 07-17-2024 Lymphocytes/100 WBC Auto (Unsp spec) 53.6 % High 19-41 [facility] Basophil percentageOrdered B y: Odalis Saravia on 07-17-2024 Basophils/100 WBC (Bld) 3.1 % High 0-1 [facility] Blood urea nitrogen (BUN)/cr eatinine ratioOrdered By: Odalis Saravia on 07-17-2024 Urea nitrogen/Creatinine [Mass ratio] 23.9 mg/mg High 10-20 [facility] Carbon dioxide measurementOr dered By: Odalis Saravia on 07-17-2024 CO2 [Moles/Vol] 26.0 mmol/L 21.0-32.0 [facility] Chloride measurementOrdered By: Odalis Saravia on 07-17-2024 Chloride [Moles/Vol] 106 mmol/L 98-107 [facility] Eosinophil percentageOrdered By: Odalis Saravia on 07-17-2024 Eosinophils/100 WBC (Bld) 8.2 % High 0-5 [facility] Erythrocyte distribution wid th (RBC) [Ratio]Ordered By: Odalis Saravia on 07-17-2024 Erythrocyte distribution width (RBC) [Entitic vol] 47.9 fL High 35.1-43.9 [facility] Erythrocyte distribution wid th ratioOrdered By: Oadlis Saravia on 07-17-2024 Erythrocyte distribution width (RBC) [Ratio] 13.6 % 11.6-14.6 [facility] Erythrocyte distribution wid th standard deviationOrdered By: Odalis Saravia on 07-17-2024 Erythrocyte distribution width (RBC) [Ratio] 47.9 fl High 35.1-43.9 [facility] Estimated glomerular filtrat ion rate (GFR) AmericanOrdered By: Odalis Saravia on 07-17-2024 Estimated GFR (MDRD) Amer 56 mL/min Low >60 [facility] Comment on above: GFR Calc Glomerular filtration rate ( GFR) estimationOrdered By: Odalis Saravia on 07-17-2024 Estimated GFR (MDRD) Non-Af Amer 46 mL/min Low >60 [facility] Comment on above: Non- GFR Calc GFR/1.73 sq M.predicted among non-blacks MDRD (S/P/Bld) [Vol rate/Area] 46 mL/min/{1.73_m2} Low >60 [facility] Comment on above: Non- GFR Calc Glucose measurementOrdered B y: Odalis Saravia on 07-17-2024 Glucose [Mass/Vol] 85 mg/dL 74-106 [facility] Hematocrit Auto (Bld) [Volum e fraction]Ordered By: Odalis Saravia on 07-17-2024 Hematocrit (Bld) [Volume fraction] 36.1 % Low 37-47 [facility] Hemoglobin measurementOrdere d By: Odalis Saravia on 07-17-2024 Hemoglobin (Bld) [Mass/Vol] 12.0 g/dL 12.0-15.0 [facility] Immature granulocytes/100 WB C Auto (Bld)Ordered By: Odalis Saravia on 07-17-2024 Immature granulocytes/100 WBC (Bld) 0.300 % 0.0-0.9 [facility] Comment on above: IG% - Immature Granu locytes (promyelocytes, myelocytes and metamyelocytes) > 1% indicates that a LEFT SHIFT is Present. Lymphocytes Auto (Unsp spec) [#/Vol]Ordered By: Candicepleasantonlaila Saravia on 07-17-2024 Lymphocytes (Bld) [#/Vol] 8.58 10*3/uL High 0.83-4.51 [facility] Lymphocytes/100 WBC Auto (Un sp spec)Ordered By: Odalis Saravia on 07-17-2024 Lymphocytes/100 WBC (Bld) 53.6 % High 19-41 [facility] MCV (mean corpuscular volume ) determinationOrdered By: Odalis Saravia on 07-17-2024 MCV (RBC) [Entitic vol] 95.3 fL 81-99 [facility] Mean corpuscular hemoglobin (MCH) determinationOrdered By: Odalis Saravia on 07-17-2024 MCH (RBC) [Entitic mass] 31.7 pg 27.0-32.0 [facility] Mean corpuscular hemoglobin concentration (MCHC) determinationOrdered By: Odalis Saravia on 07-17-2024 MCHC (RBC) [Mass/Vol] 33.2 g/dL 32-36 [facility] Mean platelet volume determi nationOrdered By: Odalis Saravia on 07-17-2024 Platelet mean volume (Bld) [Entitic vol] 10.0 fL 6.2-12.0 [facility] Monocyte percentageOrdered B y: Odalis Saravia on 07-17-2024 Monocytes/100 WBC (Bld) 9.2 % 0-10 [facility] Neutrophil percentageOrdered By: Odalis Saravia on 07-17-2024 Neutrophils/100 WBC (Bld) 25.6 % Low 47-70 [facility] Nucleated red blood cell per centageOrdered By: Odalis Saravia on 07-17-2024 Nucleated RBC/100 WBC (Bld) [Ratio] 0 % 0-5 [facility] Platelet countOrdered By: Ila bonniejeniffer Saravia on 07-17-2024 Platelets (Bld) [#/Vol] 335 10*3/uL 150-450 [facility] Potassium measurementOrdered By: Odalis Saravia on 07-17-2024 Potassium [Moles/Vol] 4.2 mmol/L 3.5-5.1 [facility] RBC Auto (Bld) [#/Vol]Ordere d By: Odalis Saravia on 07-17-2024 RBC (Bld) [#/Vol] 3.79 10*6/uL Low 4.2-5.4 [facility] Reactive lymphocyte countOrd ered By: Odalis Saravia on 07-17-2024 Reactive Lymphocytes 1+ [facility] Serum anion gap measurementO rdered By: Odalis Saravia on 07-17-2024 Anion gap [Moles/Vol] 7 mmol/L 5-15 [facility] Serum or plasma calcium fran urement (mass/volume)Ordered By: Odalis Saravia on 07-17-2024 Calcium [Mass/Vol] 9.1 mg/dL 8.5-10.1 [facility] Serum or plasma creatinine m easurement (mass/volume)Ordered By: Odalis Saravia on 07-17-2024 Creatinine [Mass/Vol] 1.17 mg/dL High 0.55-1.02 [facility] Comment on above: The validity of the calculated GFR & GFRAA in patients over 70 years has not been determined. Clinical correlation is essential. Serum or plasma urea nitroge n measurement (mass/volume)Ordered By: Odalis Saravia on 07-17-2024 Urea nitrogen [Mass/Vol] 28 mg/dL High 7-18 [facility] Sodium levelOrdered By: Candice Saravia on 07-17-2024 Sodium [Moles/Vol] 139 mmol/L 136-145 [facility] White blood cell (WBC) count Ordered By: Odalis Saravia on 07-17-2024 WBC (Bld) [#/Vol] 16.0 10*3/uL High 4.4-11.0 [facility] 55-BD-Cteclny DOrdered By: Carlito Saravia on 06-26-2024 Vitamin D 25-Hydroxy 40.6 ng/mL [facility] Comment on above: Vitamin D 25(OH) Sta tus Range Deficiency <20 ng/mL (50nmol/L) Insufficiency 20 - 30 ng/mL (50 - 75 nmol/L) Sufficiency 30 - 100 ng/mL (75 - 250 nmol/L) Toxicity >100 ng/mL (>250 nmol/L) Bilirubin directOrdered By: Odalis Saravia on 06-26-2024 Bilirubin.direct [Mass/Vol] 0.10 mg/dL 0.00-0.30 [facility] Bilirubin, totalOrdered By: Odalis Saravia on 06-26-2024 Bilirubin [Mass/Vol] 0.40 mg/dL 0.20-1.00 [facility] Comment on above: For patients on eltr ombopag therapy, use of Dimension [place] TBIL is not recommended. Laboratory - Chemistry and C hemistry - challengeOrdered By: Odalis Saravia on 06-26-2024 AST [Catalytic activity/Vol] 30 U/L 15-37 [facility] Serum globulin measurementOr dered By: Odalis Saravia on 06-26-2024 Globulin (S) [Mass/Vol] 3.3 g/dL 2.2-4.2 [facility] Serum or plasma alanine ga otransferase (ALT) measurementOrdered By: Odalis Saravia on 06-26-2024 ALT [Catalytic activity/Vol] 17 U/L 13-56 [facility] Serum or plasma albumin fran urement (mass/volume)Ordered By: Odalis Saravia on 06-26-2024 Albumin [Mass/Vol] 3.2 g/dL 3.2-5.0 [facility] Serum or plasma alkaline karthik sphatase measurementOrdered By: Odalis Saravia on 06-26-2024 ALP [Catalytic activity/Vol] 162 U/L High 45-117 [facility] Total proteinOrdered By: Curtis Saravia on 06-26-2024 Protein [Mass/Vol] 6.5 g/dL 6.4-8.2 [facility] Vitamin B12 measurementOrder ed By: Odalis Saravia on 06-26-2024 Cobalamin (Vitamin B12) [Mass/Vol] 963 pg/mL High 211-911 [facility] Absolute neutrophil countOrd ered By: Odalis Saravia on 06-19-2024 Neutrophils (Bld) [#/Vol] 4.2 10*3/uL 2.0-7.7 [facility] Acanthocyte detectionOrdered By: Odalis Saravia on 06-19-2024 Acanthocytes RARE [facility] Atypical lymphocyte percenta geOrdered By: Odalis Saravia on 06-19-2024 Atypical Lymphocytes 2+ % [facility] Basophil percentageOrdered B y: Odalis Saravia on 06-19-2024 Basophils/100 WBC (Bld) 3.0 % High 0-1 [facility] Blood urea nitrogen (BUN)/cr eatinine ratioOrdered By: Odalis Saravia on 06-19-2024 Urea nitrogen/Creatinine [Mass ratio] 26.6 mg/mg High 10-20 [facility] Carbon dioxide measurementOr dered By: Odalis Saravia on 06-19-2024 CO2 [Moles/Vol] 25.0 mmol/L 21.0-32.0 [facility] Chloride measurementOrdered By: Odalis Saravia on 06-19-2024 Chloride [Moles/Vol] 105 mmol/L 98-107 [facility] Eosinophil percentageOrdered By: Odalis Saravia on 06-19-2024 Eosinophils/100 WBC (Bld) 10.2 % High 0-5 [facility] Erythrocyte distribution wid th (RBC) [Ratio]Ordered By: Odalis Saravia on 06-19-2024 Erythrocyte distribution width (RBC) [Entitic vol] 48.9 fL High 35.1-43.9 [facility] Erythrocyte distribution wid th ratioOrdered By: Odalis Saravia on 06-19-2024 Erythrocyte distribution width (RBC) [Ratio] 13.7 % 11.6-14.6 [facility] Estimated glomerular filtrat ion rate (GFR) AmericanOrdered By: Odalis Saravia on 06-19-2024 Estimated GFR (MDRD) Amer 61 mL/min >60 [facility] Comment on above: GFR Calc Glomerular filtration rate ( GFR) estimationOrdered By: Odalis Saravia on 06-19-2024 Estimated GFR (MDRD) Non-Af Amer 50 mL/min Low >60 [facility] Comment on above: Non- GFR Calc Glucose measurementOrdered B y: Odalis Saravia on 06-19-2024 Glucose [Mass/Vol] 81 mg/dL 74-106 [facility] Hematocrit Auto (Bld) [Volum e fraction]Ordered By: Odalis Saravia on 06-19-2024 Hematocrit (Bld) [Volume fraction] 35.4 % Low 37-47 [facility] Hemoglobin measurementOrdere d By: Odalis Saravia on 06-19-2024 Hemoglobin (Bld) [Mass/Vol] 11.3 g/dL Low 12.0-15.0 [facility] Love-Panguitch bodies LM Ql (B ld)Ordered By: Odalis Saravia on 06-19-2024 Love-Panguitch Bodies 1+ [facility] Immature granulocytes/100 WB C Auto (Bld)Ordered By: Odalis Saravia on 06-19-2024 Immature granulocytes/100 WBC (Bld) 0.300 % 0.0-0.9 [facility] Comment on above: IG% - Immature Granu locytes (promyelocytes, myelocytes and metamyelocytes) > 1% indicates that a LEFT SHIFT is Present. Laboratory - Hematology and Cell countsOrdered By: Odalis Saravia on 06-19-2024 Anisocytosis Ql (Bld) 1+ [facility] Lymphocytes Auto (Unsp spec) [#/Vol]Ordered By: Odalis Saravia on 06-19-2024 Lymphocytes (Bld) [#/Vol] 7.98 10*3/uL High 0.83-4.51 [facility] Lymphocytes/100 WBC Auto (Un sp spec)Ordered By: Odalis Saravia on 06-19-2024 Lymphocytes/100 WBC (Bld) 51.1 % High 19-41 [facility] MCV (mean corpuscular volume ) determinationOrdered By: Odalis Saravia on 06-19-2024 MCV (RBC) [Entitic vol] 96.7 fL 81-99 [facility] Mean corpuscular hemoglobin (MCH) determinationOrdered By: Odalis Saravia on 06-19-2024 MCH (RBC) [Entitic mass] 30.9 pg 27.0-32.0 [facility] Mean corpuscular hemoglobin concentration (MCHC) determinationOrdered By: Odalis Saravia on 06-19-2024 MCHC (RBC) [Mass/Vol] 31.9 g/dL Low 32-36 [facility] Mean platelet volume determi nationOrdered By: Odalis Saravia on 06-19-2024 Platelet mean volume (Bld) [Entitic vol] 9.9 fL 6.2-12.0 [facility] Monocyte percentageOrdered B y: Odalis Saravia on 06-19-2024 Monocytes/100 WBC (Bld) 8.8 % 0-10 [facility] Neutrophil percentageOrdered By: Odalis Saravia on 06-19-2024 Neutrophils/100 WBC (Bld) 26.6 % Low 47-70 [facility] Nucleated red blood cell per centageOrdered By: Odalis Saravia on 06-19-2024 Nucleated RBC/100 WBC (Bld) [Ratio] 0 % 0-5 [facility] Ovalocytes LM Ql (Bld)Ordere d By: Odalis Saravia on 06-19-2024 Ovalocytes 1+ [facility] Platelet countOrdered By: Ila Saravia on 06-19-2024 Platelets (Bld) [#/Vol] 414 10*3/uL 150-450 [facility] Platelets LM Ql (Bld)Ordered By: Odalis Saravia on 06-19-2024 Platelet Estimate SLT INC ADEQ [facility] Potassium measurementOrdered By: Odalis Saravia on 06-19-2024 Potassium [Moles/Vol] 4.2 mmol/L 3.5-5.1 [facility] RBC Auto (Bld) [#/Vol]Ordere d By: Odalis Saravia on 06-19-2024 RBC (Bld) [#/Vol] 3.66 10*6/uL Low 4.2-5.4 [facility] Serum anion gap measurementO rdered By: Odalis Saravia on 06-19-2024 Anion gap [Moles/Vol] 7 mmol/L 5-15 [facility] Serum or plasma calcium fran urement (mass/volume)Ordered By: Odalis Saravia on 06-19-2024 Calcium [Mass/Vol] 8.9 mg/dL 8.5-10.1 [facility] Serum or plasma creatinine m easurement (mass/volume)Ordered By: Odalis Saravia on 06-19-2024 Creatinine [Mass/Vol] 1.09 mg/dL High 0.55-1.02 [facility] Comment on above: The validity of the calculated GFR & GFRAA in patients over 70 years has not been determined. Clinical correlation is essential. Serum or plasma urea nitroge n measurement (mass/volume)Ordered By: Odalis Saravia on 06-19-2024 Urea nitrogen [Mass/Vol] 29 mg/dL High 7-18 [facility] Sodium levelOrdered By: Candice Saravia on 06-19-2024 Sodium [Moles/Vol] 137 mmol/L 136-145 [facility] Target cells LM Ql (Bld)Orde red By: Odalis Saravia on 06-19-2024 Target Cells RARE [facility] White blood cell (WBC) count Ordered By: Odalis Saravia on 06-19-2024 WBC (Bld) [#/Vol] 15.6 10*3/uL High 4.4-11.0 [facility] High density lipoprotein (HD L) measurementOrdered By: Odalis Saravia on 06-10-2024 Cholesterol in HDL [Mass/Vol] 49 mg/dL >40 [facility] Comment on above: The drugs N-Acetylcy steine and Metamizole may falsely depress this assay. Reference Range HDL <40 mg/dL Low HDL Cholesterol HDL >or= 60 mg/dL High HDL Cholesterol Low density lipoprotein (LDL ) cholesterol measurementOrdered By: Odalis Saravia on 06-10-2024 Cholesterol in LDL [Mass/Vol] 127 mg/dL 0-130 [facility] Serum or plasma cholesterol measurement (mass/volume)Ordered By: Odalis Saravia on 06-10-2024 Cholesterol [Mass/Vol] 214 mg/dL High <200 [facility] Comment on above: <200 mg/dL Desirable 200-240 mg/dL Borderline >240 mg/dL High Risk Triglycerides measurementOrd ered By: Odalis Saravia on 06-10-2024 Triglyceride [Mass/Vol] 192 mg/dL <199 [facility] Comment on above: The drugs N-Acetylcy steine and Metamizole may falsely depress this assay.Serum Triglycerides Reference Interval Normal <150 mg/dL Borderline high 150 - 199 mg/dL High 200 - 499 mg/dL Very High > or = 500 mg/dL Very low density lipoprotein (VLDL) cholesterol measurementOrdered By: Odalis Saravia on 06-10-2024 VLDL Cholesterol 38 mg/dL 5-40 [facility] Absolute neutrophil countOrd ered By: Odalis Saravia on 05-22-2024 Neutrophils (Bld) [#/Vol] 3.4 10*3/uL 2.0-7.7 [facility] Basophil percentageOrdered B y: Odalis Saravia on 05-22-2024 Basophils/100 WBC (Bld) 2.7 % High 0-1 [facility] Blood urea nitrogen (BUN)/cr eatinine ratioOrdered By: Odalis Saravia on 05-22-2024 Urea nitrogen/Creatinine [Mass ratio] 24.3 mg/mg High 10-20 [facility] Carbon dioxide measurementOr dered By: Odalis Saravia on 05-22-2024 CO2 [Moles/Vol] 27.0 mmol/L 21.0-32.0 [facility] Chloride measurementOrdered By: Odalis Saravia on 05-22-2024 Chloride [Moles/Vol] 106 mmol/L 98-107 [facility] Eosinophil percentageOrdered By: Odalis Saravia on 05-22-2024 Eosinophils/100 WBC (Bld) 6.9 % High 0-5 [facility] Erythrocyte distribution wid th (RBC) [Ratio]Ordered By: Odalis Saravia on 05-22-2024 Erythrocyte distribution width (RBC) [Entitic vol] 49.4 fL High 35.1-43.9 [facility] Erythrocyte distribution wid th ratioOrdered By: Odalis Saravia on 05-22-2024 Erythrocyte distribution width (RBC) [Ratio] 13.9 % 11.6-14.6 [facility] Estimated glomerular filtrat ion rate (GFR) AmericanOrdered By: Odalis Saravia on 05-22-2024 Estimated GFR (MDRD) Amer 62 mL/min >60 [facility] Comment on above: GFR Calc Glomerular filtration rate ( GFR) estimationOrdered By: Odalis Saravia on 05-22-2024 Estimated GFR (MDRD) Non-Af Amer 51 mL/min Low >60 [facility] Comment on above: Non- GFR Calc Glucose measurementOrdered B y: Odalis Saravia on 05-22-2024 Glucose [Mass/Vol] 82 mg/dL 74-106 [facility] Hematocrit Auto (Bld) [Volum e fraction]Ordered By: Odalis Saravia on 05-22-2024 Hematocrit (Bld) [Volume fraction] 37.0 % 37-47 [facility] Hemoglobin measurementOrdere d By: Odalis Saravia on 05-22-2024 Hemoglobin (Bld) [Mass/Vol] 11.9 g/dL Low 12.0-15.0 [facility] Immature granulocytes/100 WB C Auto (Bld)Ordered By: Odalis Saravia on 05-22-2024 Immature granulocytes/100 WBC (Bld) 0.300 % 0.0-0.9 [facility] Comment on above: IG% - Immature Granu locytes (promyelocytes, myelocytes and metamyelocytes) > 1% indicates that a LEFT SHIFT is Present. Lymphocytes Auto (Unsp spec) [#/Vol]Ordered By: Odalis Saravia on 05-22-2024 Lymphocytes (Bld) [#/Vol] 7.97 10*3/uL High 0.83-4.51 [facility] Lymphocytes/100 WBC Auto (Un sp spec)Ordered By: Odalis Saravia on 05-22-2024 Lymphocytes/100 WBC (Bld) 56.5 % High 19-41 [facility] MCV (mean corpuscular volume ) determinationOrdered By: Odalis Saravia on 05-22-2024 MCV (RBC) [Entitic vol] 95.9 fL 81-99 [facility] Mean corpuscular hemoglobin (MCH) determinationOrdered By: Odalis Saravia on 05-22-2024 MCH (RBC) [Entitic mass] 30.8 pg 27.0-32.0 [facility] Mean corpuscular hemoglobin concentration (MCHC) determinationOrdered By: Candicepleasantonlaila Saravia on 05-22-2024 MCHC (RBC) [Mass/Vol] 32.2 g/dL 32-36 [facility] Mean platelet volume determi nationOrdered By: Odalis Saravia on 05-22-2024 Platelet mean volume (Bld) [Entitic vol] 10.3 fL 6.2-12.0 [facility] Monocyte percentageOrdered B y: Odalis Saravia on 05-22-2024 Monocytes/100 WBC (Bld) 9.8 % 0-10 [facility] Neutrophil percentageOrdered By: Odalis Saravia on 05-22-2024 Neutrophils/100 WBC (Bld) 23.8 % Low 47-70 [facility] Nucleated red blood cell per centageOrdered By: Odalis Saravia on 05-22-2024 Nucleated RBC/100 WBC (Bld) [Ratio] 0 % 0-5 [facility] Platelet countOrdered By: Ila miladylaila Guermiascarlito on 05-22-2024 Platelets (Bld) [#/Vol] 366 10*3/uL 150-450 [facility] Potassium measurementOrdered By: Odalis Guermiascarlito on 05-22-2024 Potassium [Moles/Vol] 4.5 mmol/L 3.5-5.1 [facility] Comment on above: Slight Hemolysis, Re sult may be falsely increased. RBC Auto (Bld) [#/Vol]Ordere d By: Odalis Guermiascarlito on 05-22-2024 RBC (Bld) [#/Vol] 3.86 10*6/uL Low 4.2-5.4 [facility] Reactive lymphocyte countOrd ered By: Odalis Saravia on 05-22-2024 Reactive Lymphocytes 1+ [facility] Serum anion gap measurementO rdered By: Odalis Saravia on 05-22-2024 Anion gap [Moles/Vol] 5 mmol/L 5-15 [facility] Serum or plasma calcium fran urement (mass/volume)Ordered By: Odalis Saravia on 05-22-2024 Calcium [Mass/Vol] 9.2 mg/dL 8.5-10.1 [facility] Serum or plasma creatinine m easurement (mass/volume)Ordered By: Odalis Saravia on 05-22-2024 Creatinine [Mass/Vol] 1.07 mg/dL High 0.55-1.02 [facility] Comment on above: The validity of the calculated GFR & GFRAA in patients over 70 years has not been determined. Clinical correlation is essential. Serum or plasma urea nitroge n measurement (mass/volume)Ordered By: Odalis Saravia on 05-22-2024 Urea nitrogen [Mass/Vol] 26 mg/dL High 7-18 [facility] Sodium levelOrdered By: Candice melaniecarlito Saravia on 05-22-2024 Sodium [Moles/Vol] 138 mmol/L 136-145 [facility] White blood cell (WBC) count Ordered By: Odalis Saravia on 05-22-2024 WBC (Bld) [#/Vol] 14.1 10*3/uL High 4.4-11.0 [facility] Basic Metabolic Profile (BMP )on 05-14-2024 BUN/CRE 22.9 RATIO High 10-20 [facility] Comment on above: Performed By: #### L 500.2500, L100.0100 ####[facility] [address] [place], [address] CA,Total 9.3 mg/dL Normal 8.5-10.1 [facility] Comment on above: Performed By: #### L 500.2500, L100.0100 ####[facility] [address] [place], [address] Chloride [Moles/Vol] 107 mmol/L Normal 98-107 [facility] Comment on above: Performed By: #### L 500.2500, L100.0100 ####[facility] [address] [place], [address] CO2 [Moles/Vol] 25.0 mmol/L Normal 21.0-32.0 [facility] Comment on above: Performed By: #### L 500.2500, L100.0100 ####[facility] [address] [place], [address] Creatinine [Mass/Vol] 1.18 mg/dL High 0.55-1.02 [facility] Comment on above: Result Comment: The validity of the calculated GFR GFRAA in patients over 70 years has not been determined. Clinical correlation is essential. Performed By: #### L 500.2500, L100.0100 ####[facility] [address] [place], [address] ECRCL 24.13 ml/min Normal [facility] Comment on above: Performed By: #### L 500.2500, L100.0100 ####[facility] [address] [place], [address] EST GFR - AA 56 mL/min Low >60 [facility] Comment on above: Result Comment: Afri can Rwandan GFR Calc Performed By: #### L 500.2500, L100.0100 ####[facility] [address] [place], [address] GAP 5 Normal 5-15 [facility] Comment on above: Performed By: #### L 500.2500, L100.0100 ####[facility] [address] [place], [address] GFR/1.73 sq M.predicted among non-blacks MDRD (S/P/Bld) [Vol rate/Area] 46 mL/min/{1.73_m2} Low >60 [facility] Comment on above: Result Comment: Non- GFR Calc Performed By: #### L 500.2500, L100.0100 ####[facility] [address] [place], [address] Glucose [Mass/Vol] 96 mg/dL Normal 74-106 [facility] Comment on above: Performed By: #### L 500.2500, L100.0100 ####[facility] [address] [place], [address] Potassium [Moles/Vol] 4.6 mmol/L Normal 3.5-5.1 [facility] Comment on above: Result Comment: Mode rate Hemolysis, Result may be falsely increased. Performed By: #### L 500.2500, L100.0100 ####[facility] [address] [place], [address] Sodium [Moles/Vol] 136 mmol/L Normal 136-145 [facility] Comment on above: Performed By: #### L 500.2500, L100.0100 ####[facility] [address] [place], [address] Urea nitrogen [Mass/Vol] 27 mg/dL High 7-18 [facility] Comment on above: Performed By: #### L 500.2500, L100.0100 ####[facility] [address] [place], [address] Brain/Head without Contrasto n 05-14-2024 Brain/Head without Contrast [facility] Imaging Services [address] [place] [address] Brain/Head without Contrast MR#: [id number] Acct: [id number] Name: KAYLENE HAYNES Rep #: [id number] : 1935 F 88 From: Dheeraj Castillo MD PCP: Dr. Howard Zimmerman MD Status: REG ER Study: Brain/Head without Contrast Date of Exam: 04/19 01/08 Exam# [id number] Ordering Dr: Joel Mccarthy DO [id number] EXAM: CT HEAD WITHOUT INTRAVENOUS CONTRAST CLINICAL [...] Joel Mccarthy DO; Dr. Howard Zimmerman MD Site Coordinator: Signed Normal [facility] CBC W/Diff, Automatedon 11-2 BITE CELL RARE Normal [facility] Comment on above: Performed By: #### L 500.2500, L100.0100 #### [facility] [address] [place], [address] SCHISTOCYTES RARE Normal [facility] Comment on above: Performed By: #### L 500.2500, L100.0100 #### [facility] [address] [place], [address] TARGET CELLS RARE Normal [facility] Comment on above: Performed By: #### L 500.2500, L100.0100 #### [facility] [address] [place], [address] ACANTHOCYTE 1+ Normal [facility] Comment on above: Performed By: #### L 500.2500, L100.0100 #### [facility] [address] [place], [address] KRISTINE CELLS 1+ Normal [facility] Comment on above: Performed By: #### L 500.2500, L100.0100 #### [facility] [address] [place], [address] PLT EST ADEQUATE Normal ADEQ [facility] Comment on above: Performed By: #### L 500.2500, L100.0100 #### [facility] [address] [place], [address] ATYPICAL LYMPH 1+ Normal [facility] Comment on above: Performed By: #### L 500.2500, L100.0100 #### [facility] [address] [place], [address] Emergency Department Summary on 05-14-2024 Emergency Department Summary [facility] Medical Records Department [address] [place] [address] Emergency Department Summary 05/14/24 MR#: [id number] Acct: [id number] Name: KAYLENE HAYNES LY Rep #: [id number] : 1935 88 From: Joel Mccarthy DO [...] of Parkinson's disease. Patient was found by half-way staff with abnormal head movements. Staff reports patient was able to stop voluntarily. Staff also reports patient had recent unwitnessed fall. Patient was referred to the emergency department for concern for intracranial bleeding. Patient states she does not know why she is here. Patient denies any tremors. Patient denies any chest pain or shortness of breath. Patient admits to a mild sore throat. [facility] Medical History Dementia in other diseases classified [...] no JVD (more content not included)... Normal [facility] Urinalysis, Completeon 05-14 EPI,SQUAMOUS 0-5 SEEN Normal 5-10 [facility] Comment on above: Order Comment: CLEAN CATCH Performed By: #### L 400.0001 #### [facility] [address] [place] [address] WBC 0-5 SEEN Normal 0-5 [facility] Comment on above: Order Comment: CLEAN CATCH Performed By: #### L 400.0001 #### [facility] [address] [facility] [address] BACTERIA 0 SEEN Normal None Seen [facility] Comment on above: Order Comment: CLEAN CATCH Performed By: #### L 400.0001 #### [facility] [address] [facility] [address] Mucus Ql (Urine sed) 0 SEEN Normal [facility] Comment on above: Order Comment: CLEAN CATCH Performed By: #### L 400.0001 #### [facility] [address] [facility] [address] RBC 0 SEEN Normal 0-5 [facility] Comment on above: Order Comment: CLEAN CATCH Performed By: #### L 400.0001 #### [facility] [address] [facility] [address] [facility] 04-21-2024 CN Office Visit (NRMDN) KAYLENE HAYNES ([id number]) 1935 F Date Time Provider Department 04/21/24 11:00 AM [facility] During your visit today, we recorded the following information about you: Weight 44.2 kg Selvin Felder MD 04/21/2024 7:56 PM Signed [facility] - FOLLOW UP EVALUATION Howard Zimmerman MD [address] [place] [address] [facility] [address] I had the pleasure of seeing Ms. 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 Acetaminophen 500 mg cap Take by mouth. 1000 TID for pain (more content not included)... Normal [facility] 04-21-2024 CNPN Telephone (NRMDN) KAYLENE HAYNES ([id number]) 1935 F Date Time Provider Department 04/21/24 [...] by MARIA EUGENIA VIRGEN on 04/21/24 Normal [facility] Brain/Head without Contrasto n 01-29-2024 Brain/Head without Contrast [facility] Imaging Services [address] [place] [address] Brain/Head without Contrast MR#: [id number] Acct: [id number] Name: KAYLENE HAYNES LY Rep #: [id number] : 1935 F 88 From: Filipe Nichols MD PCP: Dr. Odalis Saravia MD Status: REG ER Study: Brain/Head without Contrast Date of Exam: 01/16 09/08 Exam# [id number] Ordering Dr: Peter Goodwin DO [id number] STUDY: CT BRAIN WITHOUT CONTRAST REASON FOR [...] Odalis Saravia MD; Dr. Peter Goodwin DO Site Coordinator: Signed Normal [facility] Emergency Department Summary on 01-29-2024 Emergency Department Summary [facility] Medical Records Department [address] [place] [address] Emergency Department Summary 01/29/24 MR#: [id number] Acct: [id number] Name: KAYLENE HAYNES LY Rep #: [id number] : 1935 88 From: Peter Bojorquez PCP: Dr. Odalis Saravia MD Status:REG ER Location: ED HPI HPI - Fall History of Present Illness Chief Complaint: Fall Informant: patient and family Narrative Narrative: Sent in from [facility] fall off commode. Patient approximately [...] who is present. She has been at [facility] for last few months prior to her fall and hip fracture. She has had a left wrist fracture currently in a hard splint. Tetanus Immunization: <5 years Prior similar symptoms: Yes [facility] Medical History History of lymphoma History of [...] right lateral (more content not included)... Normal [facility] Femur Min 2 Viewson 01-29-20 Femur Min 2 Views [facility] Imaging Services [address] [place] [address] Femur Min 2 Views MR#: [id number] Acct: [id number] Name: KAYLENE HAYNES Rep #: [id number] : 1935 88 From: Olivier wayne MD PCP: Dr. Odalis Saravia MD Status: REG ER Study: Femur Min 2 Views Date of Exam: 01/29/24 Exam# [id number] Ordering Dr: Peter Goodwin DO [id number] STUDY: X-RAY - RIGHT FEMUR REASON FOR [...] Odalis Saravia MD; Dr. Peter Goodwin DO Site Coordinator: Signed Normal [facility] Femur Min 2 Views [facility] Imaging Services [address] [place] [address] Femur Min 2 Views MR#: [id number] Acct: [id number] Name: AKYLENE HAYNES Rep #: [id number] : 1935 88 From: Olviier wayne MD PCP: Dr. Odalis Saravia MD Status: REG ER Study: Femur Min 2 Views Date of Exam: 01/29/24 Exam# [id number] Ordering Dr: Peter Goodwin DO [id number] STUDY: X-RAY - LEFT FEMUR REASON FOR STUDY: Female, 88 years old. Pain following a fall. TECHNIQUE: 4 view(s) of the femur. COMPARISON: None. FINDINGS: Normal visualized femur. Normal visualized soft tissue structure. There are atherosclerotic vascular calcifications. RAD/Femur Min 2 Views IMPRESSION: No acute abnormality is seen. Electronically Signed: Olivier Maradiaga MD at 14:30 EDT Reading Location ID and State: [address] [place] [address] , Service support , CC: Dr. Odalis Saravia MD; Dr. Peter Goodwin DO Site Coordinator: Signed Normal [facility] Hand Min 3 Viewson 4 Hand Min 3 Views [facility] Imaging Services [address], [place] [address] Hand Min 3 Views MR#: [id number] Acct: [id number] Name: KAYLENE HAYNES LY Rep #: [id number] : [id number] F [id number] From: Olivier wayne MD PCP: Dr. Odalis Saravia MD Status: REG ER Study: Hand Min 3 Views Date of Exam: 01/29/24 Exam# [id number] Ordering Dr: Peter Goodwin DO [id number] STUDY: X-RAY - RIGHT HAND REASON FOR [...] Signed: Olivier Maradiaga MD at 14:31 EDT Reading Location ID and State: [address] [place] [address] , Service support , CC: Dr. Odalis Saravia MD; Dr. Peter Goodwin DO Site Coordinator: Signed Normal [facility] Spine Cervical without Contr ason 01-29-2024 Spine Cervical without Contras [facility] Imaging Services [address], [place] [address] Spine Cervical without Contras MR#: [id number] Acct: [id number] Name: KAYLENE HAYNES LY Rep #: [id number] : 1935 F 88 From: Filipe Nichols MD PCP: Dr. Odalis Saravia MD Status: REG ER Study: Spine Cervical without Contras Date of Exam: 0 01/29/24 Exam# [id number] Ordering Dr: Peter Goodwin DO [id number] STUDY: CT CERVICAL SPINE WITHOUT CONTRAST REASON [...] Odalis Saravia MD; Dr. Peter Goodwin DO Site Coordinator: Signed Normal [facility] Absolute lymphocyte countOrd ered By: Odalis Saravia on 10-17-2023 Lymphocytes Auto (Unsp spec) [#/Vol] 6.70 10*3/uL 0.83-4.51 [facility] Automated lymphocyte count a s percentage of total leukocytesOrdered By: Odalis Saravia on 10-17-2023 Lymphocytes/100 WBC Auto (Unsp spec) 46.1 % 19-41 [facility] Basophil percentageOrdered B y: Odalis Saravia on 10-17-2023 Basophil percentage 10.7 g/dL 12.0-15.0 [facility] Basophil percentage 91 mg/dL 74-106 [facility] Basophil percentage 140 mmol/L 136-145 [facility] Basophil percentage 4.2 mmol/L 3.5-5.1 [facility] Basophil percentage 108 mmol/L 98-107 [facility] Basophils (Bld) [#/Vol] 14.5 10*3/uL 4.4-11.0 [facility] Basophils (Bld) [#/Vol] 5.4 10*3/uL 2.0-7.7 [facility] Basophils/100 WBC (Bld) 37.3 % 47-70 [facility] Basophils/100 WBC (Bld) 10.3 % 0-10 [facility] Basophils/100 WBC (Bld) 3.5 % 0-5 [facility] Basophils/100 WBC (Bld) 2.5 % 0-1 [facility] Chloride [Moles/Vol] 108 mmol/L 98-107 [facility] Eosinophils/100 WBC (Bld) 3.5 % 0-5 [facility] Glucose [Mass/Vol] 91 mg/dL 74-106 [facility] Hemoglobin (Bld) [Mass/Vol] 10.7 g/dL 12.0-15.0 [facility] Monocytes/100 WBC (Bld) 10.3 % 0-10 [facility] Neutrophils (Bld) [#/Vol] 5.4 10*3/uL 2.0-7.7 [facility] Neutrophils/100 WBC (Bld) 37.3 % 47-70 [facility] Potassium [Moles/Vol] 4.2 mmol/L 3.5-5.1 [facility] Sodium [Moles/Vol] 140 mmol/L 136-145 [facility] WBC (Bld) [#/Vol] 14.5 10*3/uL 4.4-11.0 [facility] Blood platelet adequacy dete ction by light microscopyOrdered By: Odalis Saravia on 10-17-2023 Platelets LM Ql (Bld) ADEQUATE ADEQ [facility] Determination of erythrocyte mean corpuscular volume (MCV)Ordered By: Odalis Saravia on 10-17-2023 MCV (RBC) [Entitic vol] 93.8 fL 81-99 [facility] Erythrocyte distribution wid th ratioOrdered By: [facility] Saravia on 10-17-2023 Erythrocyte distribution width (RBC) [Ratio] 14.1 % 11.6-14.6 [facility] Erythrocyte distribution wid th standard deviationOrdered By: bonniepleasantonlaila Saravia on 10-17-2023 Erythrocyte distribution width (RBC) [Entitic vol] 49.1 fL 35.1-43.9 [facility] Hematocrit Auto (Bld) [Volum e fraction]Ordered By: [facility] Gucarlito on 10-17-2023 Hematocrit (Bld) [Volume fraction] 33.4 % 37-47 [facility] Immature granulocytes/100 WB C Auto (Bld)Ordered By: [facility] Riccardocarlito on 10-17-2023 Immature granulocytes/100 WBC (Bld) 0.300 % 0.0-0.9 [facility] Comment on above: IG% - Immature Granu locytes (promyelocytes, myelocytes and metamyelocytes) > 1% indicates that a LEFT SHIFT is Present. Laboratory - Chemistry and C hemistry - challengeOrdered By: Odalis Saravia on 10-17-2023 CO2 [Moles/Vol] 31.0 mmol/L 21.0-32.0 [facility] Urea nitrogen/Creatinine [Mass ratio] 21.9 mg/mg 10-20 [facility] Laboratory - Hematology and Cell countsOrdered By: Odalis Saravia on 10-17-2023 MCH (RBC) [Entitic mass] 30.1 pg 27.0-32.0 [facility] MCHC (RBC) [Mass/Vol] 32.0 g/dL 32-36 [facility] Nucleated RBC/100 WBC (Bld) [Ratio] 0 % 0-5 [facility] Platelet mean volume (Bld) [Entitic vol] 12.0 fL 6.2-12.0 [facility] No Panel InformationOrdered By: Odalis Saravia on 10-17-2023 Estimated GFR (MDRD) Amer 58 mL/min >60 [facility] Comment on above: GFR Calc Estimated GFR (MDRD) Non-Af Amer 48 mL/min >60 [facility] Comment on above: Non- GFR Calc Platelet Count See comment 150-450 [facility] Comment on above: Please note: For thi s sample, a platelet estimate is provided rather than a platelet count due to platelet clumping. Other parameters associated with this sample are not affected by platelet clumping. If a more accurate platelet count is required, a redraw of the patient will be necessary. 30.1 pg 27.0-32.0 [facility] 32.0 g/dL 32-36 [facility] See comment 150-450 [facility] 12.0 fl 6.2-12.0 [facility] 0 % 0-5 [facility] 48 mL/min >60 [facility] 58 mL/min >60 [facility] 21.9 RATIO 10-20 [facility] 31.0 mmol/L 21.0-32.0 [facility] RBC Auto (Bld) [#/Vol]Ordere d By: Odalis Saravia on 10-17-2023 RBC (Bld) [#/Vol] 3.56 10*6/uL 4.2-5.4 [facility] Serum or plasma calcium fran urement (mass/volume)Ordered By: Odalis Saravia on 10-17-2023 Calcium [Mass/Vol] 8.7 mg/dL 8.5-10.1 [facility] Serum or plasma creatinine m easurement (mass/volume)Ordered By: Odalis Saravia on 10-17-2023 Creatinine [Mass/Vol] 1.14 mg/dL 0.55-1.02 [facility] Comment on above: The validity of the calculated GFR & GFRAA in patients over 70 years has not been determined. Clinical correlation is essential. Serum or plasma urea nitroge n measurement (mass/volume)Ordered By: Odalis Saravia on 10-17-2023 Urea nitrogen [Mass/Vol] 25 mg/dL 7-18 [facility] Thin prep Papanicolaou smear with manual screeningOrdered By: Odalis Saravia on 10-17-2023 Thin prep Papanicolaou smear with manual screening 1 5-15 [facility] Absolute lymphocyte countOrd ered By: Odalis Saravia on 10-05-2023 Lymphocytes Auto (Unsp spec) [#/Vol] 5.57 10*3/uL 0.83-4.51 [facility] Automated lymphocyte count a s percentage of total leukocytesOrdered By: Odalis Saravia on 10-05-2023 Lymphocytes/100 WBC Auto (Unsp spec) 45.8 % 19-41 [facility] Basophil percentageOrdered B y: Odalis Saravia on 10-05-2023 Basophil percentage 10.9 g/dL 12.0-15.0 [facility] Basophil percentage 90 mg/dL 74-106 [facility] Basophil percentage 6.1 g/dL 6.4-8.2 [facility] Basophil percentage 0.30 mg/dL 0.20-1.00 [facility] Basophil percentage 130 mg/dL <200 [facility] Basophil percentage 139 mg/dL <199 [facility] Basophil percentage 140 mmol/L 136-145 [facility] Basophil percentage 4.1 mmol/L 3.5-5.1 [facility] Basophil percentage 104 mmol/L 98-107 [facility] Basophils (Bld) [#/Vol] 12.2 10*3/uL 4.4-11.0 [facility] Basophils (Bld) [#/Vol] 4.4 10*3/uL 2.0-7.7 [facility] Basophils/100 WBC (Bld) 36.4 % 47-70 [facility] Basophils/100 WBC (Bld) 11.1 % 0-10 [facility] Basophils/100 WBC (Bld) 4.0 % 0-5 [facility] Basophils/100 WBC (Bld) 2.5 % 0-1 [facility] Bilirubin [Mass/Vol] 0.30 mg/dL 0.20-1.00 [facility] Comment on above: For patients on eltr ombopag therapy, use of Dimension [place] TBIL is not recommended. Chloride [Moles/Vol] 104 mmol/L 98-107 [facility] Cholesterol [Mass/Vol] 130 mg/dL <200 [facility] Comment on above: <200 mg/dL Desirable 200-240 mg/dL Borderline >240 mg/dL High Risk Eosinophils/100 WBC (Bld) 4.0 % 0-5 [facility] Glucose [Mass/Vol] 90 mg/dL 74-106 [facility] Hemoglobin (Bld) [Mass/Vol] 10.9 g/dL 12.0-15.0 [facility] Monocytes/100 WBC (Bld) 11.1 % 0-10 [facility] Neutrophils (Bld) [#/Vol] 4.4 10*3/uL 2.0-7.7 [facility] Neutrophils/100 WBC (Bld) 36.4 % 47-70 [facility] Potassium [Moles/Vol] 4.1 mmol/L 3.5-5.1 [facility] Protein [Mass/Vol] 6.1 g/dL 6.4-8.2 [facility] Sodium [Moles/Vol] 140 mmol/L 136-145 [facility] Triglyceride [Mass/Vol] 139 mg/dL <199 [facility] Comment on above: The drugs N-Acetylcy steine and Metamizole may falsely depress this assay.Serum Triglycerides Reference Interval Normal <150 mg/dL Borderline high 150 - 199 mg/dL High 200 - 499 mg/dL Very High > or = 500 mg/dL WBC (Bld) [#/Vol] 12.2 10*3/uL 4.4-11.0 [facility] Blood manual differential co mment interpretation (narrative result)Ordered By: Odalis Saravia on 10-05-2023 Manual differential comment Porter (Bld) [Interp] SCANNED [facility] Determination of erythrocyte mean corpuscular volume (MCV)Ordered By: Odalis Saravia on 10-05-2023 MCV (RBC) [Entitic vol] 94.2 fL 81-99 [facility] Erythrocyte distribution wid th ratioOrdered By: Odalis Saravia on 10-05-2023 Erythrocyte distribution width (RBC) [Ratio] 13.6 % 11.6-14.6 [facility] Erythrocyte distribution wid th standard deviationOrdered By: Odalis Saravia on 10-05-2023 Erythrocyte distribution width (RBC) [Entitic vol] 46.8 fL 35.1-43.9 [facility] Hematocrit Auto (Bld) [Volum e fraction]Ordered By: [facility] Saravia on 10-05-2023 Hematocrit (Bld) [Volume fraction] 33.8 % 37-47 [facility] Immature granulocytes/100 WB C Auto (Bld)Ordered By: [facility] Gucarlito on 10-05-2023 Immature granulocytes/100 WBC (Bld) 0.200 % 0.0-0.9 [facility] Comment on above: IG% - Immature Granu locytes (promyelocytes, myelocytes and metamyelocytes) > 1% indicates that a LEFT SHIFT is Present. Laboratory - Chemistry and C hemistry - challengeOrdered By: [facility] Gucarlito on 10-05-2023 Albumin/Globulin [Mass ratio] 1.0 {ratio} 0.9-2.4 [facility] ALP [Catalytic activity/Vol] 97 U/L 45-117 [facility] ALT [Catalytic activity/Vol] 14 U/L 13-56 [facility] Cholesterol in HDL [Mass/Vol] 47 mg/dL >40 [facility] Comment on above: The drugs N-Acetylcy steine and Metamizole may falsely depress this assay. Reference Range HDL <40 mg/dL Low HDL Cholesterol HDL >or= 60 mg/dL High HDL Cholesterol Cholesterol in LDL [Mass/Vol] 55 mg/dL 0-130 [facility] CO2 [Moles/Vol] 30.0 mmol/L 21.0-32.0 [facility] Globulin (S) [Mass/Vol] 3.1 g/dL 2.2-4.2 [facility] Urea nitrogen/Creatinine [Mass ratio] 28.2 mg/mg 10-20 [facility] Laboratory - Hematology and Cell countsOrdered By: [facility] Gucarlito on 10-05-2023 MCH (RBC) [Entitic mass] 30.4 pg 27.0-32.0 [facility] MCHC (RBC) [Mass/Vol] 32.2 g/dL 32-36 [facility] Nucleated RBC/100 WBC (Bld) [Ratio] 0 % 0-5 [facility] Platelet mean volume (Bld) [Entitic vol] 10.6 fL 6.2-12.0 [facility] Platelets (Bld) [#/Vol] 346 10*3/uL 150-450 [facility] No Panel InformationOrdered By: Odalis Saravia on 10-05-2023 Estimated GFR (MDRD) Amer 65 mL/min >60 [facility] Comment on above: GFR Calc Estimated GFR (MDRD) Non-Af Amer 54 mL/min >60 [facility] Comment on above: Non- GFR Calc Reactive Lymphocytes 1+ [facility] Vitamin B12 Level > 2000 pg/mL 211-911 [facility] Vitamin D 25-Hydroxy 60.0 ng/mL [facility] Comment on above: Vitamin D 25(OH) Sta tus Range Deficiency <20 ng/mL (50nmol/L) Insufficiency 20 - 30 ng/mL (50 - 75 nmol/L) Sufficiency 30 - 100 ng/mL (75 - 250 nmol/L) Toxicity >100 ng/mL (>250 nmol/L) VLDL Cholesterol 28 mg/dL 5-40 [facility] 30.4 pg 27.0-32.0 [facility] 32.2 g/dL 32-36 [facility] 346 K/mm3 150-450 [facility] 10.6 fl 6.2-12.0 [facility] 0 % 0-5 [facility] 1+ [facility] 54 mL/min >60 [facility] 65 mL/min >60 [facility] 28.2 RATIO 10-20 [facility] 3.1 g/dL 2.2-4.2 [facility] 1.0 RATIO 0.9-2.4 [facility] 97 U/L 45-117 [facility] 14 U/L 13-56 [facility] 30.0 mmol/L 21.0-32.0 [facility] 47 mg/dL >40 [facility] 55 mg/dL 0-130 [facility] 28 mg/dL 5-40 [facility] > 2000 pg/mL 211-911 [facility] 60.0 ng/mL [facility] RBC Auto (Bld) [#/Vol]Ordere d By: Odalis Saravia on 10-05-2023 RBC (Bld) [#/Vol] 3.59 10*6/uL 4.2-5.4 [facility] Serum or plasma calcium fran urement (mass/volume)Ordered By: Odalis Saravia on 10-05-2023 Calcium [Mass/Vol] 8.7 mg/dL 8.5-10.1 [facility] Serum or plasma creatinine m easurement (mass/volume)Ordered By: Odalis Saravia on 10-05-2023 Creatinine [Mass/Vol] 1.03 mg/dL 0.55-1.02 [facility] Comment on above: The validity of the calculated GFR & GFRAA in patients over 70 years has not been determined. Clinical correlation is essential. Serum or plasma urea nitroge n measurement (mass/volume)Ordered By: Odalis Saravia on 10-05-2023 Urea nitrogen [Mass/Vol] 29 mg/dL 7-18 [facility] Thin prep Papanicolaou smear with manual screeningOrdered By: Odalis Saravia on 10-05-2023 Thin prep Papanicolaou smear with manual screening 3.0 g/dL 3.2-5.0 [facility] Thin prep Papanicolaou smear with manual screening 38 U/L 15-37 [facility] Thin prep Papanicolaou smear with manual screening 6 5-15 [facility] Absolute lymphocyte countOrd ered By: Howard Zimmerman on 09-29-2023 Lymphocytes Auto (Unsp spec) [#/Vol] 7.05 10*3/uL 0.83-4.51 [facility] Automated lymphocyte count a s percentage of total leukocytesOrdered By: Howard Zimmerman on 09-29-2023 Lymphocytes/100 WBC Auto (Unsp spec) 42.7 % 19-41 [facility] Basophil percentageOrdered B y: Howard Zimmerman on 09-29-2023 Basophil percentage 12.6 g/dL 12.0-15.0 [facility] Basophils (Bld) [#/Vol] 16.5 10*3/uL 4.4-11.0 [facility] Basophils (Bld) [#/Vol] 7.0 10*3/uL 2.0-7.7 [facility] Basophils/100 WBC (Bld) 2.5 % 0-1 [facility] Basophils/100 WBC (Bld) 42.3 % 47-70 [facility] Basophils/100 WBC (Bld) 9.2 % 0-10 [facility] Basophils/100 WBC (Bld) 2.8 % 0-5 [facility] Eosinophils/100 WBC (Bld) 2.8 % 0-5 [facility] Hemoglobin (Bld) [Mass/Vol] 12.6 g/dL 12.0-15.0 [facility] Monocytes/100 WBC (Bld) 9.2 % 0-10 [facility] Neutrophils (Bld) [#/Vol] 7.0 10*3/uL 2.0-7.7 [facility] Neutrophils/100 WBC (Bld) 42.3 % 47-70 [facility] WBC (Bld) [#/Vol] 16.5 10*3/uL 4.4-11.0 [facility] Blood manual differential co mment interpretation (narrative result)Ordered By: Howard Zimmerman on 09-29-2023 Manual differential comment Porter (Bld) [Interp] SCANNED [facility] Determination of erythrocyte mean corpuscular volume (MCV)Ordered By: Howard Zimmerman on 09-29-2023 MCV (RBC) [Entitic vol] 94.0 fL 81-99 [facility] Erythrocyte distribution wid th ratioOrdered By: Howard Zimmerman on 09-29-2023 Erythrocyte distribution width (RBC) [Ratio] 13.5 % 11.6-14.6 [facility] Erythrocyte distribution wid th standard deviationOrdered By: Howard Zimmerman on 09-29-2023 Erythrocyte distribution width (RBC) [Entitic vol] 46.6 fL 35.1-43.9 [facility] Hematocrit Auto (Bld) [Volum e fraction]Ordered By: Howard Zimmerman on 09-29-2023 Hematocrit (Bld) [Volume fraction] 40.4 % 37-47 [facility] Immature granulocytes/100 WB C Auto (Bld)Ordered By: Howard Zimmerman on 09-29-2023 Immature granulocytes/100 WBC (Bld) 0.500 % 0.0-0.9 [facility] Comment on above: IG% - Immature Granu locytes (promyelocytes, myelocytes and metamyelocytes) > 1% indicates that a LEFT SHIFT is Present. Laboratory - Hematology and Cell countsOrdered By: Howard Zimmerman on 09-29-2023 MCH (RBC) [Entitic mass] 29.3 pg 27.0-32.0 [facility] MCHC (RBC) [Mass/Vol] 31.2 g/dL 32-36 [facility] Nucleated RBC/100 WBC (Bld) [Ratio] 0 % 0-5 [facility] Platelet mean volume (Bld) [Entitic vol] 10.0 fL 6.2-12.0 [facility] Platelets (Bld) [#/Vol] 410 10*3/uL 150-450 [facility] No Panel InformationOrdered By: Howard Zimmerman on 09-29-2023 Reactive Lymphocytes 1+ [facility] 29.3 pg 27.0-32.0 [facility] 31.2 g/dL 32-36 [facility] 410 K/mm3 150-450 [facility] 10.0 fl 6.2-12.0 [facility] 0 % 0-5 [facility] 1+ [facility] RBC Auto (Bld) [#/Vol]Ordere d By: Howard Zimmerman on 09-29-2023 RBC (Bld) [#/Vol] 4.30 10*6/uL 4.2-5.4 [facility] Review by pathologistOrdered By: Howard Zimmerman on 09-29-2023 Pathologist review Porter (Unsp spec) [Interp] Reviewed [facility] Comment on above: Previous reported re sult: Heide mckenna Edited by: IVAN on 10/01/23:1345Leukocytosis.Clinical correlation necessary.Nilton Flaherty M.D. 10/01/23 AMENDED REPORT 10/01/23 1345 PATH REV previously reported as: Heide mckenna Basophil percentageOrdered B y: Howard Zimmerman on 09-28-2023 Basophil percentage 83 mg/dL 74-106 [facility] Basophil percentage 138 mmol/L 136-145 [facility] Basophil percentage 4.3 mmol/L 3.5-5.1 [facility] Basophil percentage 105 mmol/L 98-107 [facility] Chloride [Moles/Vol] 105 mmol/L 98-107 [facility] Glucose [Mass/Vol] 83 mg/dL 74-106 [facility] Potassium [Moles/Vol] 4.3 mmol/L 3.5-5.1 [facility] Sodium [Moles/Vol] 138 mmol/L 136-145 [facility] Laboratory - Chemistry and C hemistry - challengeOrdered By: Howard Zimmerman on 09-28-2023 CO2 [Moles/Vol] 31.0 mmol/L 21.0-32.0 [facility] Urea nitrogen/Creatinine [Mass ratio] 27.0 mg/mg 10-20 [facility] No Panel InformationOrdered By: Howard Zimmerman on 09-28-2023 Estimated Creatinine Clearance Calc 21.31 ml/min [facility] Estimated GFR (MDRD) Amer 54 mL/min >60 [facility] Comment on above: GFR Calc Estimated GFR (MDRD) Non-Af Amer 44 mL/min >60 [facility] Comment on above: Non- GFR Calc 44 mL/min >60 [facility] 54 mL/min >60 [facility] 21.31 ml/min [facility] 27.0 RATIO 04-06 [facility] 31.0 mmol/L 21.0-32.0 [facility] Serum or plasma calcium fran urement (mass/volume)Ordered By: Howard Zimmerman on 09-28-2023 Calcium [Mass/Vol] 8.7 mg/dL 8.5-10.1 [facility] Serum or plasma creatinine m easurement (mass/volume)Ordered By: Howard Zimmerman on 09-28-2023 Creatinine [Mass/Vol] 1.22 mg/dL 0.55-1.02 [facility] Comment on above: The validity of the calculated GFR & GFRAA in patients over 70 years has not been determined. Clinical correlation is essential. Serum or plasma urea nitroge n measurement (mass/volume)Ordered By: Howard Zimmerman on 09-28-2023 Urea nitrogen [Mass/Vol] 33 mg/dL 7-18 [facility] Thin prep Papanicolaou smear with manual screeningOrdered By: Howard Zimmerman on 09-28-2023 Thin prep Papanicolaou smear with manual screening 2 5-15 [facility] Absolute lymphocyte countOrd ered By: Maame Pinon on 09-11-2023 Lymphocytes Auto (Unsp spec) [#/Vol] 3.47 10*3/uL 0.83-4.51 [facility] Automated lymphocyte count a s percentage of total leukocytesOrdered By: Maame Pinon on 09-11-2023 Lymphocytes/100 WBC Auto (Unsp spec) 38.3 % 19-41 [facility] Basophil percentageOrdered B y: Maame Pinon on 09-11-2023 Basophil percentage 13.1 g/dL 12.0-15.0 [facility] Basophils (Bld) [#/Vol] 9.1 10*3/uL 4.4-11.0 [facility] Basophils (Bld) [#/Vol] 4.6 10*3/uL 2.0-7.7 [facility] Basophils/100 WBC (Bld) 0.3 % 0-1 [facility] Basophils/100 WBC (Bld) 51.1 % 47-70 [facility] Basophils/100 WBC (Bld) 9.0 % 0-10 [facility] Basophils/100 WBC (Bld) 1.0 % 0-5 [facility] Eosinophils/100 WBC (Bld) 1.0 % 0-5 [facility] Hemoglobin (Bld) [Mass/Vol] 13.1 g/dL 12.0-15.0 [facility] Monocytes/100 WBC (Bld) 9.0 % 0-10 [facility] Neutrophils (Bld) [#/Vol] 4.6 10*3/uL 2.0-7.7 [facility] Neutrophils/100 WBC (Bld) 51.1 % 47-70 [facility] WBC (Bld) [#/Vol] 9.1 10*3/uL 4.4-11.0 [facility] Determination of erythrocyte mean corpuscular volume (MCV)Ordered By: Maame Pinon on 09-11-2023 MCV (RBC) [Entitic vol] 92.1 fL 81-99 [facility] Erythrocyte distribution wid th ratioOrdered By: Maame Pinon on 09-11-2023 Erythrocyte distribution width (RBC) [Ratio] 12.2 % 11.6-14.6 [facility] Erythrocyte distribution wid th standard deviationOrdered By: Maame Pinon on 09-11-2023 Erythrocyte distribution width (RBC) [Entitic vol] 41.3 fL 35.1-43.9 [facility] Hematocrit Auto (Bld) [Volum e fraction]Ordered By: Maame Pinon on 09-11-2023 Hematocrit (Bld) [Volume fraction] 38.6 % 37-47 [facility] Immature granulocytes/100 WB C Auto (Bld)Ordered By: Maame Pinon on 09-11-2023 Immature granulocytes/100 WBC (Bld) 0.300 % 0.0-0.9 [facility] Comment on above: IG% - Immature Granu locytes (promyelocytes, myelocytes and metamyelocytes) > 1% indicates that a LEFT SHIFT is Present. Laboratory - Hematology and Cell countsOrdered By: Maame Pinon on 09-11-2023 MCH (RBC) [Entitic mass] 31.3 pg 27.0-32.0 [facility] MCHC (RBC) [Mass/Vol] 33.9 g/dL 32-36 [facility] Comment on above: Delta: 31.8 on 09/09-0555 Nucleated RBC/100 WBC (Bld) [Ratio] 0 % 0-5 [facility] Platelet mean volume (Bld) [Entitic vol] 9.6 fL 6.2-12.0 [facility] Platelets (Bld) [#/Vol] 297 10*3/uL 150-450 [facility] No Panel InformationOrdered By: Maame Pinon on 09-11-2023 31.3 pg 27.0-32.0 [facility] 33.9 g/dL 32-36 [facility] 297 K/mm3 150-450 [facility] 9.6 fl 6.2-12.0 [facility] 0 % 0-5 [facility] RBC Auto (Bld) [#/Vol]Ordere d By: Maame Pinon on 09-11-2023 RBC (Bld) [#/Vol] 4.19 10*6/uL 4.2-5.4 [facility] Basophil percentageOrdered B y: Maame Pinon on 09-10-2023 Basophil percentage 3.1 mg/dL 2.5-4.9 [facility] Basophil percentage 95 mg/dL 74-106 [facility] Basophil percentage 6.0 g/dL 6.4-8.2 [facility] Basophil percentage 0.50 mg/dL 0.20-1.00 [facility] Basophil percentage 140 mmol/L 136-145 [facility] Basophil percentage 3.8 mmol/L 3.5-5.1 [facility] Basophil percentage 109 mmol/L 98-107 [facility] Bilirubin [Mass/Vol] 0.50 mg/dL 0.20-1.00 [facility] Comment on above: For patients on eltr ombopag therapy, use of Dimension [place] TBIL is not recommended. Chloride [Moles/Vol] 109 mmol/L 98-107 [facility] Glucose [Mass/Vol] 95 mg/dL 74-106 [facility] Potassium [Moles/Vol] 3.8 mmol/L 3.5-5.1 [facility] Protein [Mass/Vol] 6.0 g/dL 6.4-8.2 [facility] Sodium [Moles/Vol] 140 mmol/L 136-145 [facility] Blood manual differential co mment interpretation (narrative result)Ordered By: Maame Pinon on 09-10-2023 Manual differential comment Porter (Bld) [Interp] SCANNED [facility] - Chemistry and C hemistry - challengeOrdered By: Maame Pinon on 09-10-2023 Albumin/Globulin [Mass ratio] 0.9 {ratio} 0.9-2.4 [facility] ALP [Catalytic activity/Vol] 104 U/L 45-117 [facility] ALT [Catalytic activity/Vol] 11 U/L 13-56 [facility] CO2 [Moles/Vol] 27.0 mmol/L 21.0-32.0 [facility] Globulin (S) [Mass/Vol] 3.1 g/dL 2.2-4.2 [facility] Magnesium [Mass/Vol] 2.1 mg/dL 1.6-2.6 [facility] Urea nitrogen/Creatinine [Mass ratio] 26.5 mg/mg 10-20 [facility] No Panel InformationOrdered By: Maame Pinon on 09-10-2023 Estimated Creatinine Clearance Calc 27.75 ml/min [facility] Estimated GFR (MDRD) Amer 76 mL/min >60 [facility] Comment on above: GFR Calc Estimated GFR (MDRD) Non-Af Amer 63 mL/min >60 [facility] Comment on above: Non- GFR Calc 63 mL/min >60 [facility] 76 mL/min >60 [facility] 27.75 ml/min [facility] 26.5 RATIO 10-20 [facility] 3.1 g/dL 2.2-4.2 [facility] 0.9 RATIO 0.9-2.4 [facility] 104 U/L 45-117 [facility] 11 U/L 13-56 [facility] 2.1 mg/dL 1.6-2.6 [facility] 27.0 mmol/L 21.0-32.0 [facility] Serum or plasma calcium fran urement (mass/volume)Ordered By: Maame Pinon on 09-10-2023 Calcium [Mass/Vol] 8.7 mg/dL 8.5-10.1 [facility] Serum or plasma creatinine m easurement (mass/volume)Ordered By: Maame Pinon on 09-10-2023 Creatinine [Mass/Vol] 0.90 mg/dL 0.55-1.02 [facility] Comment on above: The validity of the calculated GFR & GFRAA in patients over 70 years has not been determined. Clinical correlation is essential. Serum or plasma urea nitroge n measurement (mass/volume)Ordered By: Maame Pinon on 09-10-2023 Urea nitrogen [Mass/Vol] 24 mg/dL 7-18 [facility] Thin prep Papanicolaou smear with manual screeningOrdered By: Maame Pinon on 09-10-2023 Thin prep Papanicolaou smear with manual screening 2.9 g/dL 3.2-5.0 [facility] Thin prep Papanicolaou smear with manual screening 38 U/L 15-37 [facility] Thin prep Papanicolaou smear with manual screening 4 5-15 [facility] Basophil percentageOrdered B y: Gonzalez Garza on 09-09-2023 Basophil percentage 0-5 SEEN /hpf 0-5 [facility] Bilirubin Test strip Ql (U)O rdered By: Gonzalez Garza on 09-09-2023 Bilirubin Ql (U) Negative Negative [facility] Ketones Test strip Ql (U)Ord ered By: Gonzalez Garza on 09-09-2023 Ketones Ql (U) 5 mg/dl Negative [facility] Mucus LM Ql (Urine sed)Order ed By: Gonzalez Garza on 09-09-2023 Mucus Ql (Urine sed) 0 SEEN /hpf [facility] Nitrite Test strip Ql (U)Ord ered By: Gonzalez Garza on 09-09-2023 Nitrite Ql (U) Negative Negative [facility] No Panel InformationOrdered By: Gonzalez Garza on 09-09-2023 Urine RBC 0 SEEN /hpf 0-5 [facility] 0 SEEN /hpf 0-5 [facility] Protein Test strip Ql (U)Ord ered By: Gonzalez Garza on 09-09-2023 Protein Ql (U) 15 mg/dl Negative [facility] Squamous epithelial cells de tection in urine sediment by light microscopyOrdered By: Gonzalez Garza on 09-09-2023 Epithelial cells.squamous LM Ql (Urine sed) 0 SEEN /hpf 5-10 [facility] Transitional cells detection in urine sediment by light microscopyOrdered By: Gonzalez Garza on 09-09-2023 Transitional cells LM Ql (Urine sed) 0 SEEN /hpf 0-5 [facility] Urine blood detectionOrdered By: Gonzalez Garza on 09-09-2023 RBC Ql (U) Negative Negative [facility] Urine clarityOrdered By: Edda Garza on 09-09-2023 Clarity (U) Clear Clear [facility] Urine color determinationOrd ered By: Gonzalez Garza on 09-09-2023 Color (U) Yellow Yellow [facility] Urine glucose detectionOrder ed By: Gonzalez Garza on 09-09-2023 Glucose Ql (U) Normal mg/dl Normal [facility] Urine leukocyte esterase det ection by dipstickOrdered By: Gonzalez Garza on 09-09-2023 Leukocyte esterase Test strip Ql (U) 25 /ul Negative [facility] Urine pHOrdered By: Gonzalez Rivera on 09-09-2023 pH (U) 6.5 [pH] 5.0 - 8.0 [facility] Urine sediment bacteria coun t by microscopy (number/high power field)Ordered By: Gonzalez Garza on 09-09-2023 Bacteria LM.HPF (Urine sed) [#/Area] 1 /[HPF] None Seen [facility] Urine sediment renal epithel ial cell count by microscopy (number/high power field)Ordered By: Gonzalez Garza on 09-09-2023 Epithelial cells.renal LM.HPF (Urine sed) [#/Area] 0 /[HPF] 0-5 [facility] Urine specific gravity measu rementOrdered By: Gonzalez Garza on 09-09-2023 Specific gravity (U) [Rel density] 1.020 1.002-1.030 [facility] Urine urobilinogen measureme ntOrdered By: Gonzalez Garza on 09-09-2023 Urobilinogen Ql (U) Normal mg/dl Normal [facility] Absolute lymphocyte countOrd ered By: Germán Benson on 09-08-2023 Lymphocytes Auto (Unsp spec) [#/Vol] 5.22 10*3/uL 0.83-4.51 [facility] Automated lymphocyte count a s percentage of total leukocytesOrdered By: Germán Benson on 09-08-2023 Lymphocytes/100 WBC Auto (Unsp spec) 35.9 % 19-41 [facility] Basophil percentageOrdered B y: Germán Benson on 09-08-2023 Basophils/100 WBC (Bld) 2.4 % 0-1 [facility] Chloride [Moles/Vol] 106 mmol/L 98-107 [facility] Eosinophils/100 WBC (Bld) 2.5 % 0-5 [facility] Glucose [Mass/Vol] 123 mg/dL 74-106 [facility] Comment on above: Fasting Glucose resu lt from 100 to 125 mg/dL suggests IMPAIRED HOMEOSTASIS per A.D.A. criteria. Hemoglobin (Bld) [Mass/Vol] 12.8 g/dL 12.0-15.0 [facility] Monocytes/100 WBC (Bld) 7.5 % 0-10 [facility] Neutrophils (Bld) [#/Vol] 7.5 10*3/uL 2.0-7.7 [facility] Neutrophils/100 WBC (Bld) 51.3 % 47-70 [facility] Potassium [Moles/Vol] 4.4 mmol/L 3.5-5.1 [facility] Comment on above: Slight Hemolysis, Re sult may be falsely increased. Sodium [Moles/Vol] 139 mmol/L 136-145 [facility] WBC (Bld) [#/Vol] 14.5 10*3/uL 4.4-11.0 [facility] Blood manual differential co mment interpretation (narrative result)Ordered By: Germán Benson on 09-08-2023 Manual differential comment Porter (Bld) [Interp] SCANNED [facility] Determination of erythrocyte mean corpuscular volume (MCV)Ordered By: Germán Benson on 09-08-2023 MCV (RBC) [Entitic vol] 94.0 fL 81-99 [facility] Erythrocyte distribution wid th ratioOrdered By: Germán Benson on 09-08-2023 Erythrocyte distribution width (RBC) [Ratio] 13.5 % 11.6-14.6 [facility] Erythrocyte distribution wid th standard deviationOrdered By: Germán Benson on 09-08-2023 Erythrocyte distribution width (RBC) [Entitic vol] 46.9 fL 35.1-43.9 [facility] Hematocrit Auto (Bld) [Volum e fraction]Ordered By: Germán Benson on 09-08-2023 Hematocrit (Bld) [Volume fraction] 40.8 % 37-47 [facility] Immature granulocytes/100 WB C Auto (Bld)Ordered By: Germán Benson on 09-08-2023 Immature granulocytes/100 WBC (Bld) 0.400 % 0.0-0.9 [facility] Comment on above: IG% - Immature Granu locytes (promyelocytes, myelocytes and metamyelocytes) > 1% indicates that a LEFT SHIFT is Present. Laboratory - Chemistry and C hemistry - challengeOrdered By: Germán Benson on 09-08-2023 CK [Catalytic activity/Vol] 65 U/L 26-192 [facility] CO2 [Moles/Vol] 26.0 mmol/L 21.0-32.0 [facility] Urea nitrogen/Creatinine [Mass ratio] 18.7 mg/mg 10-20 [facility] - Hematology and Cell countsOrdered By: Germán Benson on 09-08-2023 MCH (RBC) [Entitic mass] 29.5 pg 27.0-32.0 [facility] MCHC (RBC) [Mass/Vol] 31.4 g/dL 32-36 [facility] Nucleated RBC/100 WBC (Bld) [Ratio] 0 % 0-5 [facility] Platelet mean volume (Bld) [Entitic vol] 9.7 fL 6.2-12.0 [facility] Platelets (Bld) [#/Vol] 329 10*3/uL 150-450 [facility] No Panel InformationOrdered By: Germán Benson on 09-08-2023 Estimated Creatinine Clearance Calc 21.72 ml/min [facility] Estimated GFR (MDRD) Amer 53 mL/min >60 [facility] Comment on above: GFR Calc Estimated GFR (MDRD) Non-Af Amer 44 mL/min >60 [facility] Comment on above: Non- GFR Calc Troponin I High Sensitivity 7 pg/mL 3.0-54.0 [facility] Comment on above: Please Note: New Shreya t Units and Gender Specific Reference Ranges. For more information see Policy Stat Procedure [place] High Sensitivity Troponin (TNIH) and attachments. 65 U/L 26-192 [facility] 7 pg/mL 3.0-54.0 [facility] RBC Auto (Bld) [#/Vol]Ordere d By: Germán Benson on 09-08-2023 RBC (Bld) [#/Vol] 4.34 10*6/uL 4.2-5.4 [facility] Serum or plasma calcium fran urement (mass/volume)Ordered By: Germán Benson on 09-08-2023 Calcium [Mass/Vol] 9.3 mg/dL 8.5-10.1 [facility] Serum or plasma creatinine m easurement (mass/volume)Ordered By: Germán Benson on 09-08-2023 Creatinine [Mass/Vol] 1.23 mg/dL 0.55-1.02 [facility] Comment on above: The validity of the calculated GFR & GFRAA in patients over 70 years has not been determined. Clinical correlation is essential. Serum or plasma urea nitroge n measurement (mass/volume)Ordered By: Germán Benson on 09-08-2023 Urea nitrogen [Mass/Vol] 23 mg/dL 7-18 [facility] Thin prep Papanicolaou smear with manual screeningOrdered By: Germán Benson on 09-08-2023 Thin prep Papanicolaou smear with manual screening 7 5-15 [facility] Culture, urineOrdered By: Keith Zimmerman on 08-21-2023 Bacteria identified Cx Nom (U) Culture exhibits no growth. [facility] Bacteria identified Cx Nom (U) Culture exhibits no growth. [facility] Absolute lymphocyte countOrd ered By: Howard Zimmerman on 08-20-2023 Lymphocytes Auto (Unsp spec) [#/Vol] 8.14 10*3/uL 0.83-4.51 [facility] Automated lymphocyte count a s percentage of total leukocytesOrdered By: Howard Zimmerman on 08-20-2023 Lymphocytes/100 WBC Auto (Unsp spec) 49.5 % 19-41 [facility] Basophil percentageOrdered B y: Howard Zimmerman on 08-20-2023 Basophil percentage 11.6 g/dL 12.0-15.0 [facility] Basophil percentage 106 mg/dL 74-106 [facility] Basophil percentage 138 mmol/L 136-145 [facility] Basophil percentage 4.4 mmol/L 3.5-5.1 [facility] Basophil percentage 107 mmol/L 98-107 [facility] Basophils (Bld) [#/Vol] 16.5 10*3/uL 4.4-11.0 [facility] Basophils (Bld) [#/Vol] 6.2 10*3/uL 2.0-7.7 [facility] Basophils/100 WBC (Bld) 2.7 % 0-1 [facility] Basophils/100 WBC (Bld) 37.3 % 47-70 [facility] Basophils/100 WBC (Bld) 8.4 % 0-10 [facility] Basophils/100 WBC (Bld) 1.8 % 0-5 [facility] Chloride [Moles/Vol] 107 mmol/L 98-107 [facility] Eosinophils/100 WBC (Bld) 1.8 % 0-5 [facility] Glucose [Mass/Vol] 106 mg/dL 74-106 [facility] Comment on above: Fasting Glucose resu lt from 100 to 125 mg/dL suggests IMPAIRED HOMEOSTASIS per A.D.A. criteria. Hemoglobin (Bld) [Mass/Vol] 11.6 g/dL 12.0-15.0 [facility] Monocytes/100 WBC (Bld) 8.4 % 0-10 [facility] Neutrophils (Bld) [#/Vol] 6.2 10*3/uL 2.0-7.7 [facility] Neutrophils/100 WBC (Bld) 37.3 % 47-70 [facility] Potassium [Moles/Vol] 4.4 mmol/L 3.5-5.1 [facility] Sodium [Moles/Vol] 138 mmol/L 136-145 [facility] WBC (Bld) [#/Vol] 16.5 10*3/uL 4.4-11.0 [facility] Blood manual differential co mment interpretation (narrative result)Ordered By: Howard Zimmerman on 08-20-2023 Manual differential comment Porter (Bld) [Interp] SCANNED [facility] Comment on above: LYMPHOCYTOSIS NOTED Determination of erythrocyte mean corpuscular volume (MCV)Ordered By: Howard Zimmerman on 08-20-2023 MCV (RBC) [Entitic vol] 94.1 fL 81-99 [facility] Erythrocyte distribution wid th ratioOrdered By: Howard Zimmerman on 08-20-2023 Erythrocyte distribution width (RBC) [Ratio] 13.9 % 11.6-14.6 [facility] Erythrocyte distribution wid th standard deviationOrdered By: Howard Zimmerman on 08-20-2023 Erythrocyte distribution width (RBC) [Entitic vol] 47.7 fL 35.1-43.9 [facility] Hematocrit Auto (Bld) [Volum e fraction]Ordered By: Howard Zimmerman on 08-20-2023 Hematocrit (Bld) [Volume fraction] 36.7 % 37-47 [facility] Immature granulocytes/100 WB C Auto (Bld)Ordered By: Howard Zimmerman on 08-20-2023 Immature granulocytes/100 WBC (Bld) 0.300 % 0.0-0.9 [facility] Comment on above: IG% - Immature Granu locytes (promyelocytes, myelocytes and metamyelocytes) > 1% indicates that a LEFT SHIFT is Present. Laboratory - Chemistry and C hemistry - challengeOrdered By: Howard Zimmerman on 08-20-2023 CO2 [Moles/Vol] 27.0 mmol/L 21.0-32.0 [facility] Urea nitrogen/Creatinine [Mass ratio] 22.9 mg/mg 10- [facility] - Hematology and Cell countsOrdered By: Howard Zimmerman on 08-20-2023 MCH (RBC) [Entitic mass] 29.7 pg 27.0-32.0 [facility] MCHC (RBC) [Mass/Vol] 31.6 g/dL -36 [facility] Nucleated RBC/100 WBC (Bld) [Ratio] 0 % 0-5 [facility] Platelet mean volume (Bld) [Entitic vol] 11.9 fL 6.2-12.0 [facility] Platelets (Bld) [#/Vol] 207 10*3/uL 150-450 [facility] No Panel InformationOrdered By: Howard Zimmerman on 08-20-2023 Estimated GFR (MDRD) Amer 64 mL/min >60 [facility] Comment on above: GFR Calc Estimated GFR (MDRD) Non-Af Amer 53 mL/min >60 [facility] Comment on above: Non- GFR Calc 29.7 pg 27.0-32.0 [facility] 31.6 g/dL [facility] 207 K/mm3 150-450 [facility] 11.9 fl 6.2-12.0 [facility] 0 % 0-5 [facility] 53 mL/min >60 [facility] 64 mL/min >60 [facility] 22.9 RATIO 04-06 [facility] 27.0 mmol/L 21.0-32.0 [facility] RBC Auto (Bld) [#/Vol]Ordere d By: Howard Zimmerman on 08-20-2023 RBC (Bld) [#/Vol] 3.90 10*6/uL 4.2-5.4 [facility] Serum or plasma calcium fran urement (mass/volume)Ordered By: Howard Zimmerman on 08-20-2023 Calcium [Mass/Vol] 9.0 mg/dL 8.5-10.1 [facility] Serum or plasma creatinine m easurement (mass/volume)Ordered By: Howard Zimmerman on 08-20-2023 Creatinine [Mass/Vol] 1.05 mg/dL 0.55-1.02 [facility] Comment on above: The validity of the calculated GFR & GFRAA in patients over 70 years has not been determined. Clinical correlation is essential. Serum or plasma urea nitroge n measurement (mass/volume)Ordered By: Howard Zimmerman on 08-20-2023 Urea nitrogen [Mass/Vol] 24 mg/dL 7-18 [facility] Thin prep Papanicolaou smear with manual screeningOrdered By: Howard Zimmerman on 08-20-2023 Thin prep Papanicolaou smear with manual screening 4 5-15 [facility] Absolute lymphocyte countOrd ered By: Umesh Velázquez on 07-28-2023 Lymphocytes Auto (Unsp spec) [#/Vol] 5.67 10*3/uL 0.83-4.51 [facility] Amorphous sediment detection in urine sediment by light microscopyOrdered By: Umesh Velázquez on 07-28-2023 Amorphous sediment LM Ql (Urine sed) 1+ [facility] Automated lymphocyte count a s percentage of total leukocytesOrdered By: Umesh Velázquez on 07-28-2023 Lymphocytes/100 WBC Auto (Unsp spec) 33.4 % 19-41 [facility] Basophil percentageOrdered B y: Umesh Velázquez on 07-28-2023 Basophil percentage 0 SEEN /hpf 0-5 [facility] Basophil percentage 12.4 g/dL 12.0-15.0 [facility] Basophil percentage 104 mg/dL 74-106 [facility] Basophil percentage 7.2 g/dL 6.4-8.2 [facility] Basophil percentage 0.70 mg/dL 0.20-1.00 [facility] Basophil percentage 137 mmol/L 136-145 [facility] Basophil percentage 4.2 mmol/L 3.5-5.1 [facility] Basophil percentage 103 mmol/L 98-107 [facility] Basophils (Bld) [#/Vol] 17.0 10*3/uL 4.4-11.0 [facility] Basophils (Bld) [#/Vol] 9.6 10*3/uL 2.0-7.7 [facility] Basophils/100 WBC (Bld) 1.9 % 0-1 [facility] Basophils/100 WBC (Bld) 56.7 % 47-70 [facility] Basophils/100 WBC (Bld) 7.1 % 0-10 [facility] Basophils/100 WBC (Bld) 0.4 % 0-5 [facility] Bilirubin [Mass/Vol] 0.70 mg/dL 0.20-1.00 [facility] Comment on above: For patients on eltr ombopag therapy, use of Dimension [place] TBIL is not recommended. Chloride [Moles/Vol] 103 mmol/L 98-107 [facility] Eosinophils/100 WBC (Bld) 0.4 % 0-5 [facility] Glucose [Mass/Vol] 104 mg/dL 74-106 [facility] Comment on above: Fasting Glucose resu lt from 100 to 125 mg/dL suggests IMPAIRED HOMEOSTASIS per A.D.A. criteria. Hemoglobin (Bld) [Mass/Vol] 12.4 g/dL 12.0-15.0 [facility] Monocytes/100 WBC (Bld) 7.1 % 0-10 [facility] Neutrophils (Bld) [#/Vol] 9.6 10*3/uL 2.0-7.7 [facility] Neutrophils/100 WBC (Bld) 56.7 % 47-70 [facility] Potassium [Moles/Vol] 4.2 mmol/L 3.5-5.1 [facility] Protein [Mass/Vol] 7.2 g/dL 6.4-8.2 [facility] Sodium [Moles/Vol] 137 mmol/L 136-145 [facility] WBC (Bld) [#/Vol] 17.0 10*3/uL 4.4-11.0 [facility] Bilirubin Test strip Ql (U)O rdered By: Umesh Velázquez on 07-28-2023 Bilirubin Ql (U) Negative Negative [facility] Blood manual differential co mment interpretation (narrative result)Ordered By: Umesh Velázquez on 07-28-2023 Manual differential comment Porter (Bld) [Interp] SCANNED [facility] Determination of erythrocyte mean corpuscular volume (MCV)Ordered By: Umesh Velázquez on 07-28-2023 MCV (RBC) [Entitic vol] 91.9 fL 81-99 [facility] Erythrocyte distribution wid th ratioOrdered By: Umesh Velázquez on 07-28-2023 Erythrocyte distribution width (RBC) [Ratio] 13.4 % 11.6-14.6 [facility] Erythrocyte distribution wid th standard deviationOrdered By: Umesh Velázquez on 07-28-2023 Erythrocyte distribution width (RBC) [Entitic vol] 45.3 fL 35.1-43.9 [facility] Hematocrit Auto (Bld) [Volum e fraction]Ordered By: Umesh Velázquez on 07-28-2023 Hematocrit (Bld) [Volume fraction] 37.4 % 37-47 [facility] Immature granulocytes/100 WB C Auto (Bld)Ordered By: Umesh Velázquez on 07-28-2023 Immature granulocytes/100 WBC (Bld) 0.500 % 0.0-0.9 [facility] Comment on above: IG% - Immature Granu locytes (promyelocytes, myelocytes and metamyelocytes) > 1% indicates that a LEFT SHIFT is Present. Ketones Test strip Ql (U)Ord ered By: Umesh Velázquez on 07-28-2023 Ketones Ql (U) Negative Negative [facility] - Chemistry and C hemistry - challengeOrdered By: Umesh Velázquez on 07-28-2023 Albumin/Globulin [Mass ratio] 0.9 {ratio} 0.9-2.4 [facility] ALP [Catalytic activity/Vol] 148 U/L 45-117 [facility] ALT [Catalytic activity/Vol] 17 U/L 13-56 [facility] CO2 [Moles/Vol] 30.0 mmol/L 21.0-32.0 [facility] Globulin (S) [Mass/Vol] 3.7 g/dL 2.2-4.2 [facility] Urea nitrogen/Creatinine [Mass ratio] 22.7 mg/mg 10-20 [facility] - Hematology and Cell countsOrdered By: Umesh Velázquez on 07-28-2023 MCH (RBC) [Entitic mass] 30.5 pg 27.0-32.0 [facility] MCHC (RBC) [Mass/Vol] 33.2 g/dL 32-36 [facility] Nucleated RBC/100 WBC (Bld) [Ratio] 0 % 0-5 [facility] Platelet mean volume (Bld) [Entitic vol] 10.3 fL 6.2-12.0 [facility] Platelets (Bld) [#/Vol] 402 10*3/uL 150-450 [facility] Mucus LM Ql (Urine sed)Order ed By: Umesh Velázquez on 07-28-2023 Mucus Ql (Urine sed) 0 SEEN /hpf [facility] Nitrite Test strip Ql (U)Ord ered By: Umesh Velázquez on 07-28-2023 Nitrite Ql (U) Negative Negative [facility] No Panel InformationOrdered By: Umesh Velázquez on 07-28-2023 Urine RBC 0 SEEN /hpf 0-5 [facility] 0 SEEN /hpf 0-5 [facility] Estimated Creatinine Clearance Calc 23.66 ml/min [facility] Estimated GFR (MDRD) Amer 55 mL/min >60 [facility] Comment on above: GFR Calc Estimated GFR (MDRD) Non-Af Amer 46 mL/min >60 [facility] Comment on above: Non- GFR Calc Reactive Lymphocytes 2+ [facility] 30.5 pg 27.0-32.0 [facility] 33.2 g/dL 32-36 [facility] 402 K/mm3 150-450 [facility] 10.3 fl 6.2-12.0 [facility] 0 % 0-5 [facility] 2+ [facility] 46 mL/min >60 [facility] 55 mL/min >60 [facility] 23.66 ml/min [facility] 22.7 RATIO 10-20 [facility] 3.7 g/dL 2.2-4.2 [facility] 0.9 RATIO 0.9-2.4 [facility] 148 U/L 45-117 [facility] 17 U/L 13-56 [facility] 30.0 mmol/L 21.0-32.0 [facility] Protein Test strip Ql (U)Ord ered By: Umesh Velázquez on 07-28-2023 Protein Ql (U) 15 mg/dl Negative [facility] RBC Auto (Bld) [#/Vol]Ordere d By: Umesh Velázquez on 07-28-2023 RBC (Bld) [#/Vol] 4.07 10*6/uL 4.2-5.4 [facility] Serum or plasma calcium fran urement (mass/volume)Ordered By: Umesh Velázquez on 07-28-2023 Calcium [Mass/Vol] 9.6 mg/dL 8.5-10.1 [facility] Serum or plasma creatinine m easurement (mass/volume)Ordered By: Umesh Velázquez on 07-28-2023 Creatinine [Mass/Vol] 1.19 mg/dL 0.55-1.02 [facility] Comment on above: The validity of the calculated GFR & GFRAA in patients over 70 years has not been determined. Clinical correlation is essential. Serum or plasma urea nitroge n measurement (mass/volume)Ordered By: Umesh Velázquez on 07-28-2023 Urea nitrogen [Mass/Vol] 27 mg/dL 7-18 [facility] Squamous epithelial cells de tection in urine sediment by light microscopyOrdered By: Umesh Velázquez on 07-28-2023 Epithelial cells.squamous LM Ql (Urine sed) 0 SEEN /hpf 5-10 [facility] Thin prep Papanicolaou smear with manual screeningOrdered By: Umesh Velázquez on 07-28-2023 Thin prep Papanicolaou smear with manual screening 3.5 g/dL 3.2-5.0 [facility] Thin prep Papanicolaou smear with manual screening 28 U/L 15-37 [facility] Thin prep Papanicolaou smear with manual screening 4 5-15 [facility] Urine blood detectionOrdered By: Umesh Velázquez on 07-28-2023 RBC Ql (U) Negative Negative [facility] Urine clarityOrdered By: Bebeto Veálzquez on 07-28-2023 Clarity (U) Clear Clear [facility] Urine color determinationOrd ered By: Umesh Velázquez on 07-28-2023 Color (U) Yellow Yellow [facility] Urine glucose detectionOrder ed By: Umesh Velázquez on 07-28-2023 Glucose Ql (U) Normal mg/dl Normal [facility] Urine leukocyte esterase det ection by dipstickOrdered By: Umesh Velázquez on 07-28-2023 Leukocyte esterase Test strip Ql (U) Negative Negative [facility] Urine pHOrdered By: Umesh farmer on 07-28-2023 pH (U) 7.0 [pH] 5.0 - 8.0 [facility] Urine sediment bacteria coun t by microscopy (number/high power field)Ordered By: Umesh Velázquez on 07-28-2023 Bacteria LM.HPF (Urine sed) [#/Area] 0 /[HPF] None Seen [facility] Urine specific gravity measu rementOrdered By: Umesh Velázquez on 07-28-2023 Specific gravity (U) [Rel density] 1.010 1.002-1.030 [facility] Urine urobilinogen measureme ntOrdered By: Umesh Velázquez on 07-28-2023 Urobilinogen Ql (U) Normal mg/dl Normal [facility] Absolute lymphocyte countOrd ered By: Daisy Mack on 06-29-2023 Lymphocytes Auto (Unsp spec) [#/Vol] 5.59 10*3/uL 0.83-4.51 [facility] Basophil percentageOrdered B y: Daisy Mack on 06-29-2023 Basophil percentage 93 mg/dL 74-106 [facility] Basophil percentage 6.0 g/dL 6.4-8.2 [facility] Basophil percentage 0.40 mg/dL 0.20-1.00 [facility] Basophil percentage 210 mg/dL <200 [facility] Basophil percentage 134 mg/dL <199 [facility] Basophil percentage 139 mmol/L 136-145 [facility] Basophil percentage 4.0 mmol/L 3.5-5.1 [facility] Basophil percentage 107 mmol/L 98-107 [facility] Basophils (Bld) [#/Vol] 15.7 10*3/uL 4.4-11.0 [facility] Basophils (Bld) [#/Vol] 8.1 10*3/uL 2.0-7.7 [facility] Basophils/100 WBC (Bld) 2.2 % 0-1 [facility] Basophils/100 WBC (Bld) 51.9 % 47-70 [facility] Bilirubin [Mass/Vol] 0.40 mg/dL 0.20-1.00 [facility] Comment on above: For patients on eltr ombopag therapy, use of Dimension [place] TBIL is not recommended. Chloride [Moles/Vol] 107 mmol/L 98-107 [facility] Cholesterol [Mass/Vol] 210 mg/dL <200 [facility] Comment on above: <200 mg/dL Desirable 200-240 mg/dL Borderline >240 mg/dL High Risk Eosinophils/100 WBC (Bld) 2.2 % 0-5 [facility] Glucose [Mass/Vol] 93 mg/dL 74-106 [facility] Neutrophils (Bld) [#/Vol] 8.1 10*3/uL 2.0-7.7 [facility] Neutrophils/100 WBC (Bld) 51.9 % 47-70 [facility] Potassium [Moles/Vol] 4.0 mmol/L 3.5-5.1 [facility] Protein [Mass/Vol] 6.0 g/dL 6.4-8.2 [facility] Sodium [Moles/Vol] 139 mmol/L 136-145 [facility] Triglyceride [Mass/Vol] 134 mg/dL <199 [facility] Comment on above: The drugs N-Acetylcy steine and Metamizole may falsely depress this assay.Serum Triglycerides Reference Interval Normal <150 mg/dL Borderline high 150 - 199 mg/dL High 200 - 499 mg/dL Very High > or = 500 mg/dL WBC (Bld) [#/Vol] 15.7 10*3/uL 4.4-11.0 [facility] Blood erythrocytes count (nu mber/volume)Ordered By: Daisy Mack on 06-29-2023 RBC (Bld) [#/Vol] 4.27 10*6/uL 4.2-5.4 [facility] Blood hemoglobin measurement (mass/volume)Ordered By: Daisy Mack on 06-29-2023 Hemoglobin (Bld) [Mass/Vol] 12.7 g/dL 12.0-15.0 [facility] Blood lymphocytes/100 leukoc ytesOrdered By: Daisy Mack on 06-29-2023 Lymphocytes/100 WBC (Bld) 35.7 % 19-41 [facility] Blood manual differential co mment interpretation (narrative result)Ordered By: Daisy Mack on 06-29-2023 Manual differential comment Porter (Bld) [Interp] SCANNED [facility] Blood monocytes/100 leukocyt esOrdered By: Daisy Mack on 06-29-2023 Monocytes/100 WBC (Bld) 7.7 % 0-10 [facility] Blood platelet mean volumeOr dered By: Daisy Mack on 06-29-2023 Platelet mean volume (Bld) [Entitic vol] 9.4 fL 6.2-12.0 [facility] Determination of erythrocyte mean corpuscular volume (MCV)Ordered By: Daisy Mack on 06-29-2023 MCV (RBC) [Entitic vol] 91.6 fL 81-99 [facility] Hematocrit Auto (Bld) [Volum e fraction]Ordered By: [facility] on 06-29-2023 Hematocrit (Bld) [Volume fraction] 39.1 % 37-47 [facility] Laboratory - Chemistry and C hemistry - challengeOrdered By: [facility] on 06-29-2023 ALP [Catalytic activity/Vol] 91 U/L 45-117 [facility] ALT [Catalytic activity/Vol] 13 U/L 13-56 [facility] CO2 [Moles/Vol] 25.0 mmol/L 21.0-32.0 [facility] Globulin (S) [Mass/Vol] 3.1 g/dL 2.2-4.2 [facility] Urea nitrogen/Creatinine [Mass ratio] 24.0 mg/mg 10-20 [facility] - Hematology and Cell countsOrdered By: [facility] on 06-29-2023 Erythrocyte distribution width (RBC) [Entitic vol] 46.9 fL 35.1-43.9 [facility] Erythrocyte distribution width (RBC) [Ratio] 13.9 % 11.6-14.6 [facility] Immature granulocytes/100 WBC (Bld) 0.300 % 0.0-0.9 [facility] Comment on above: IG% - Immature Granu locytes (promyelocytes, myelocytes and metamyelocytes) > 1% indicates that a LEFT SHIFT is Present. MCH (RBC) [Entitic mass] 29.7 pg 27.0-32.0 [facility] Nucleated RBC/100 WBC (Bld) [Ratio] 0 % 0-5 [facility] Auto (RBC) [Mass/Vol]Or dered By: Daisy Mack on 06-29-2023 MCHC (RBC) [Mass/Vol] 32.5 g/dL 32-36 [facility] No Panel InformationOrdered By: Daisy Mack on 06-29-2023 Estimated Creatinine Clearance Calc 28.02 ml/min [facility] Estimated GFR (MDRD) Amer 74 mL/min >60 [facility] Comment on above: GFR Calc Estimated GFR (MDRD) Non-Af Amer 62 mL/min >60 [facility] Comment on above: Non- GFR Calc Thyroid Stimulating Hormone (TSH) 2.02 uIU/mL 0.358-3.74 [facility] 29.7 pg 27.0-32.0 [facility] 13.9 % 11.6-14.6 [facility] 46.9 fl 35.1-43.9 [facility] 0.300 % 0.0-0.9 [facility] 0 % 0-5 [facility] 62 mL/min >60 [facility] 74 mL/min >60 [facility] 28.02 ml/min [facility] 24.0 RATIO 10-20 [facility] 3.1 g/dL 2.2-4.2 [facility] 91 U/L 45-117 [facility] 13 U/L 13-56 [facility] 25.0 mmol/L 21.0-32.0 [facility] 2.02 uIU/mL 0.358-3.74 [facility] Platelets bldOrdered By: Denny Mack on 06-29-2023 Platelets (Bld) [#/Vol] 346 10*3/uL 150-450 [facility] Serum or plasma albumin fran urement (mass/volume)Ordered By: Daisy Mack on 06-29-2023 Albumin [Mass/Vol] 2.9 g/dL 3.2-5.0 [facility] Serum or plasma albumin/glob ulin mass ratioOrdered By: Daisy Mack on 06-29-2023 Albumin/Globulin [Mass ratio] 0.9 {ratio} 0.9-2.4 [facility] Serum or plasma calcium fran urement (mass/volume)Ordered By: Daisy Mack on 06-29-2023 Calcium [Mass/Vol] 8.7 mg/dL 8.5-10.1 [facility] Serum or plasma cholesterol in HDL measurement (mass/volume)Ordered By: Daisy Mack on 06-29-2023 Cholesterol in HDL [Mass/Vol] 57 mg/dL >40 [facility] Comment on above: The drugs N-Acetylcy steine and Metamizole may falsely depress this assay. Reference Range HDL <40 mg/dL Low HDL Cholesterol HDL >or= 60 mg/dL High HDL Cholesterol Serum or plasma cholesterol in VLDL measurement (mass/volume)Ordered By: Daisy Mack on 06-29-2023 Cholesterol in VLDL [Mass/Vol] 27 mg/dL 5-40 [facility] Serum or plasma creatinine m easurement (mass/volume)Ordered By: Daisy Mack on 06-29-2023 Creatinine [Mass/Vol] 0.92 mg/dL 0.55-1.02 [facility] Comment on above: The validity of the calculated GFR & GFRAA in patients over 70 years has not been determined. Clinical correlation is essential. Serum or plasma low density lipoprotein (LDL) cholesterol measurement (mass/volume)Ordered By: Daisy Mack on 06-29-2023 Cholesterol in LDL [Mass/Vol] 126 mg/dL 0-130 [facility] Serum or plasma urea nitroge n measurement (mass/volume)Ordered By: Daisy Mack on 06-29-2023 Urea nitrogen [Mass/Vol] 22 mg/dL 7-18 [facility] Thin prep Papanicolaou smear with manual screeningOrdered By: Daisy Mack on 06-29-2023 Thin prep Papanicolaou smear with manual screening 22 U/L 15-37 [facility] Thin prep Papanicolaou smear with manual screening 7 5-15 [facility] Whole blood hemoglobin A1c/t otal hemoglobin ratio (mass fraction)Ordered By: Daisy Mack on 06-29-2023 HbA1c (Bld) [Mass fraction] 5.3 % 3.8-5.6 [facility] Comment on above: Normal < 5.7 % Predi abetic 5.7 - 6.4 % Diabetic >or= 6.5 % Please note range changes. Absolute lymphocyte countOrd ered By: Myrna Munguia on 06-28-2023 Lymphocytes Auto (Unsp spec) [#/Vol] 7.62 10*3/uL 0.83-4.51 [facility] Basophil percentageOrdered B y: Myrna Munguia on 06-28-2023 Basophils/100 WBC (Bld) 2.6 % 0-1 [facility] Chloride [Moles/Vol] 103 mmol/L 98-107 [facility] Eosinophils/100 WBC (Bld) 2.3 % 0-5 [facility] Glucose [Mass/Vol] 91 mg/dL 74-106 [facility] Neutrophils (Bld) [#/Vol] 4.8 10*3/uL 2.0-7.7 [facility] Neutrophils/100 WBC (Bld) 33.4 % 47-70 [facility] Potassium [Moles/Vol] 4.1 mmol/L 3.5-5.1 [facility] Sodium [Moles/Vol] 137 mmol/L 136-145 [facility] WBC (Bld) [#/Vol] 14.4 10*3/uL 4.4-11.0 [facility] Blood erythrocytes count (nu mber/volume)Ordered By: Myrna Munguia on 06-28-2023 RBC (Bld) [#/Vol] 4.30 10*6/uL 4.2-5.4 [facility] Blood hemoglobin measurement (mass/volume)Ordered By: Myrna Munguia on 06-28-2023 Hemoglobin (Bld) [Mass/Vol] 12.8 g/dL 12.0-15.0 [facility] Blood lymphocytes/100 leukoc ytesOrdered By: Myrna Munguia on 06-28-2023 Lymphocytes/100 WBC (Bld) 53.0 % 19-41 [facility] Blood manual differential co mment interpretation (narrative result)Ordered By: Myrna Munguia on 06-28-2023 Manual differential comment Porter (Bld) [Interp] SCANNED [facility] Comment on above: LYMPHOCYTOSIS Blood monocytes/100 leukocyt esOrdered By: Myrna Munguia on 06-28-2023 Monocytes/100 WBC (Bld) 8.4 % 0-10 [facility] Blood platelet mean volumeOr dered By: Myrna Munguia on 06-28-2023 Platelet mean volume (Bld) [Entitic vol] 9.6 fL 6.2-12.0 [facility] Determination of erythrocyte mean corpuscular volume (MCV)Ordered By: Myrna Munguia on 06-28-2023 MCV (RBC) [Entitic vol] 93.5 fL 81-99 [facility] Glucose Glucometer (BldC) [M ass/Vol]Ordered By: Myrna Munguia on 06-28-2023 Glucose [Mass/Vol] 78 mg/dL 74-106 [facility] Comment on above: MANAGEMENT OF PATIEN T CARE PER NURSING PROTOCOL Hematocrit Auto (Bld) [Volum e fraction]Ordered By: Myrna Munguia on 06-28-2023 Hematocrit (Bld) [Volume fraction] 40.2 % 37-47 [facility] INR in Blood by Coagulation assayOrdered By: Myrna Munguia on 06-28-2023 INR Coag (Bld) [Relative time] 1.0 {INR} [facility] - Chemistry and C hemistry - challengeOrdered By: Myrna Munguia on 06-28-2023 CO2 [Moles/Vol] 29.0 mmol/L 21.0-32.0 [facility] Urea nitrogen/Creatinine [Mass ratio] 23.5 mg/mg 10-20 [facility] - Chemistry and C hemistry - challengeOrdered By: Daisy Mack on 06-28-2023 Magnesium [Mass/Vol] 2.3 mg/dL 1.6-2.6 [facility] Laboratory - CoagulationOrde red By: Myrna Munguia on 06-28-2023 aPTT Coag (Bld) [Time] 27.6 s 24.1-36.2 [facility] PT Coag (PPP) [Time] 12.6 s 11.7-14.9 [facility] Laboratory - Hematology and Cell countsOrdered By: Myrna Munguia on 06-28-2023 Erythrocyte distribution width (RBC) [Entitic vol] 48.0 fL 35.1-43.9 [facility] Erythrocyte distribution width (RBC) [Ratio] 14.0 % 11.6-14.6 [facility] Immature granulocytes/100 WBC (Bld) 0.300 % 0.0-0.9 [facility] Comment on above: IG% - Immature Granu locytes (promyelocytes, myelocytes and metamyelocytes) > 1% indicates that a LEFT SHIFT is Present. MCH (RBC) [Entitic mass] 29.8 pg 27.0-32.0 [facility] Nucleated RBC/100 WBC (Bld) [Ratio] 0 % 0-5 [facility] MCHC Auto (RBC) [Mass/Vol]Or dered By: Myrna Munguia on 06-28-2023 MCHC (RBC) [Mass/Vol] 31.8 g/dL 32-36 [facility] No Panel InformationOrdered By: Myrna Munguia on 06-28-2023 Estimated Creatinine Clearance Calc 25.91 ml/min [facility] Estimated GFR (MDRD) Amer 66 mL/min >60 [facility] Comment on above: GFR Calc Estimated GFR (MDRD) Non-Af Amer 55 mL/min >60 [facility] Comment on above: Non- GFR Calc Reactive Lymphocytes 1+ [facility] Troponin I High Sensitivity 6 pg/mL 3.0-54.0 [facility] Comment on above: Please Note: New Shreya t Units and Gender Specific Reference Ranges. For more information see Policy Stat Procedure [place] High Sensitivity Troponin (TNIH) and attachments. 1+ [facility] 12.6 SECONDS 11.7-14.9 [facility] 27.6 Seconds 24.1-36.2 [facility] 6 pg/mL 3.0-54.0 [facility] No Panel InformationOrdered By: Daisy Mack on 06-28-2023 2.3 mg/dL 1.6-2.6 [facility] Platelets bldOrdered By: Estefani Munguia on 06-28-2023 Platelets (Bld) [#/Vol] 357 10*3/uL 150-450 [facility] Serum or plasma calcium fran urement (mass/volume)Ordered By: Myrna Munguia on 06-28-2023 Calcium [Mass/Vol] 9.2 mg/dL 8.5-10.1 [facility] Serum or plasma creatinine m easurement (mass/volume)Ordered By: Myrna Munguia on 06-28-2023 Creatinine [Mass/Vol] 1.02 mg/dL 0.55-1.02 [facility] Comment on above: The validity of the calculated GFR & GFRAA in patients over 70 years has not been determined. Clinical correlation is essential. Serum or plasma urea nitroge n measurement (mass/volume)Ordered By: Myrna Munguia on 06-28-2023 Urea nitrogen [Mass/Vol] 24 mg/dL 7-18 [facility] Thin prep Papanicolaou smear with manual screeningOrdered By: Myrna Munguia on 06-28-2023 Thin prep Papanicolaou smear with manual screening 5 5-15 [facility] Absolute lymphocyte countOrd ered By: Howard Zimmerman on 05-28-2023 Lymphocytes Auto (Unsp spec) [#/Vol] 7.42 10*3/uL 0.83-4.51 [facility] Basophil percentageOrdered B y: Howard Zimmerman on 05-28-2023 Basophils/100 WBC (Bld) 2.9 % 0-1 [facility] Bilirubin [Mass/Vol] 0.60 mg/dL 0.20-1.00 [facility] Comment on above: For patients on eltr ombopag therapy, use of Dimension [place] TBIL is not recommended. Chloride [Moles/Vol] 104 mmol/L 98-107 [facility] Eosinophils/100 WBC (Bld) 1.4 % 0-5 [facility] Glucose [Mass/Vol] 108 mg/dL 74-106 [facility] Comment on above: Fasting Glucose resu lt from 100 to 125 mg/dL suggests IMPAIRED HOMEOSTASIS per A.D.A. criteria. Neutrophils (Bld) [#/Vol] 5.4 10*3/uL 2.0-7.7 [facility] Neutrophils/100 WBC (Bld) 36.6 % 47-70 [facility] Potassium [Moles/Vol] 4.2 mmol/L 3.5-5.1 [facility] Protein [Mass/Vol] 6.9 g/dL 6.4-8.2 [facility] Sodium [Moles/Vol] 139 mmol/L 136-145 [facility] WBC (Bld) [#/Vol] 14.6 10*3/uL 4.4-11.0 [facility] Blood erythrocytes count (nu mber/volume)Ordered By: Howard Zimmerman on 05-28-2023 RBC (Bld) [#/Vol] 4.08 10*6/uL 4.2-5.4 [facility] Blood hemoglobin measurement (mass/volume)Ordered By: Howard Zimmerman on 05-28-2023 Hemoglobin (Bld) [Mass/Vol] 12.1 g/dL 12.0-15.0 [facility] Blood lymphocytes/100 leukoc ytesOrdered By: Howard Zimmerman on 05-28-2023 Lymphocytes/100 WBC (Bld) 50.7 % 19-41 [facility] Blood manual differential co mment interpretation (narrative result)Ordered By: Howard Zimmerman on 05-28-2023 Manual differential comment Porter (Bld) [Interp] See comment [facility] Comment on above: LYMPHOCYTOSIS NOTED Blood monocytes/100 leukocyt esOrdered By: Howard Zimmerman on 05-28-2023 Monocytes/100 WBC (Bld) 8.2 % 0-10 [facility] Blood platelet mean volumeOr dered By: Howard Zimmerman on 05-28-2023 Platelet mean volume (Bld) [Entitic vol] 10.3 fL 6.2-12.0 [facility] Determination of erythrocyte mean corpuscular volume (MCV)Ordered By: Howard Zimmerman on 05-28-2023 MCV (RBC) [Entitic vol] 94.9 fL 81-99 [facility] Hematocrit Auto (Bld) [Volum e fraction]Ordered By: Howard Zimmerman on 05-28-2023 Hematocrit (Bld) [Volume fraction] 38.7 % 37-47 [facility] Laboratory - Chemistry and C hemistry - challengeOrdered By: Howard Erasmo on 05-28-2023 ALP [Catalytic activity/Vol] 96 U/L 45-117 [facility] ALT [Catalytic activity/Vol] 14 U/L 13-56 [facility] CO2 [Moles/Vol] 31.0 mmol/L 21.0-32.0 [facility] Globulin (S) [Mass/Vol] 3.5 g/dL 2.2-4.2 [facility] Urea nitrogen/Creatinine [Mass ratio] 20.9 mg/mg 10-20 [facility] - Hematology and Cell countsOrdered By: Howard Zimmerman on 05-28-2023 Erythrocyte distribution width (RBC) [Entitic vol] 48.9 fL 35.1-43.9 [facility] Erythrocyte distribution width (RBC) [Ratio] 14.0 % 11.6-14.6 [facility] Immature granulocytes/100 WBC (Bld) 0.200 % 0.0-0.9 [facility] Comment on above: IG% - Immature Granu locytes (promyelocytes, myelocytes and metamyelocytes) > 1% indicates that a LEFT SHIFT is Present. MCH (RBC) [Entitic mass] 29.7 pg 27.0-32.0 [facility] Nucleated RBC/100 WBC (Bld) [Ratio] 0 % 0-5 [facility] MCHC Auto (RBC) [Mass/Vol]Or dered By: Howard Zimmerman on 05-28-2023 MCHC (RBC) [Mass/Vol] 31.3 g/dL 32-36 [facility] No Panel InformationOrdered By: Howard Zimmerman on 05-28-2023 Estimated GFR (MDRD) Amer 57 mL/min >60 [facility] Comment on above: GFR Calc Estimated GFR (MDRD) Non-Af Amer 47 mL/min >60 [facility] Comment on above: Non- GFR Calc Thyroid Stimulating Hormone (TSH) 1.37 uIU/mL 0.358-3.74 [facility] Vitamin D 25-Hydroxy 46.6 ng/mL [facility] Comment on above: Vitamin D 25(OH) Sta tus Range Deficiency <20 ng/mL (50nmol/L) Insufficiency 20 - 30 ng/mL (50 - 75 nmol/L) Sufficiency 30 - 100 ng/mL (75 - 250 nmol/L) Toxicity >100 ng/mL (>250 nmol/L) Platelets bldOrdered By: Howard Zimmerman on 05-28-2023 Platelets (Bld) [#/Vol] 425 10*3/uL 150-450 [facility] Serum or plasma albumin fran urement (mass/volume)Ordered By: Howard Zimmerman on 05-28-2023 Albumin [Mass/Vol] 3.4 g/dL 3.2-5.0 [facility] Serum or plasma albumin/glob ulin mass ratioOrdered By: Howard Zimmerman on 05-28-2023 Albumin/Globulin [Mass ratio] 1.0 {ratio} 0.9-2.4 [facility] Serum or plasma calcium fran urement (mass/volume)Ordered By: Howard Zimmerman on 05-28-2023 Calcium [Mass/Vol] 8.8 mg/dL 8.5-10.1 [facility] Serum or plasma creatinine m easurement (mass/volume)Ordered By: Howard Zimmerman on 05-28-2023 Creatinine [Mass/Vol] 1.15 mg/dL 0.55-1.02 [facility] Comment on above: The validity of the calculated GFR & GFRAA in patients over 70 years has not been determined. Clinical correlation is essential. Serum or plasma urea nitroge n measurement (mass/volume)Ordered By: Howard Zimmerman on 05-28-2023 Urea nitrogen [Mass/Vol] 24 mg/dL 7-18 [facility] Thin prep Papanicolaou smear with manual screeningOrdered By: Howard Zimmerman on 05-28-2023 Thin prep Papanicolaou smear with manual screening 31 U/L 15-37 [facility] Thin prep Papanicolaou smear with manual screening 4 5-15 [facility] Laboratory - Microbiology an d Antimicrobial susceptibilityOrdered By: Howard Zimmerman on 05-15-2023 SARS-CoV-2 (COVID-19) RNA DEONTE+probe Ql (Unsp spec) SARS-CoV-2 (COVID 19 PCR) [facility] SARS-CoV-2 (COVID-19) RNA DEONTE+probe Ql (Unsp spec) SARS-CoV-2 (COVID 19 PCR) [facility] No Panel InformationOrdered By: Howard Zimmerman on 05-15-2023 Influenza Types A,B Direct FA (ARIANNA) [facility] Influenza Types A,B Direct FA (ARIANNA) [facility] RSV Ag EIAOrdered By: Howard almaraz on 05-15-2023 RSV Ag Immune stain Ql (Tiss) [facility] RSV Ag Immune stain Ql (Tiss) [facility] Absolute lymphocyte countOrd ered By: Howard Zimmerman on 05-14-2023 Lymphocytes Auto (Unsp spec) [#/Vol] 6.75 10*3/uL 0.83-4.51 [facility] Basophil percentageOrdered B y: Howard Zimmerman on 05-14-2023 Basophils/100 WBC (Bld) 2.8 % 0-1 [facility] Chloride [Moles/Vol] 103 mmol/L 98-107 [facility] Eosinophils/100 WBC (Bld) 0.3 % 0-5 [facility] Glucose [Mass/Vol] 112 mg/dL 74-106 [facility] Comment on above: Fasting Glucose resu lt from 100 to 125 mg/dL suggests IMPAIRED HOMEOSTASIS per A.D.A. criteria. Neutrophils (Bld) [#/Vol] 3.2 10*3/uL 2.0-7.7 [facility] Neutrophils/100 WBC (Bld) 26.9 % 47-70 [facility] Potassium [Moles/Vol] 4.1 mmol/L 3.5-5.1 [facility] Comment on above: Slight Hemolysis, Re sult may be falsely increased. Sodium [Moles/Vol] 139 mmol/L 136-145 [facility] WBC (Bld) [#/Vol] 11.8 10*3/uL 4.4-11.0 [facility] Blood erythrocytes count (nu mber/volume)Ordered By: Howard Zimmerman on 05-14-2023 RBC (Bld) [#/Vol] 4.26 10*6/uL 4.2-5.4 [facility] Blood hemoglobin measurement (mass/volume)Ordered By: Howard Zimmerman on 05-14-2023 Hemoglobin (Bld) [Mass/Vol] 12.8 g/dL 12.0-15.0 [facility] Blood lymphocytes/100 leukoc ytesOrdered By: Howard Zimmerman on 05-14-2023 Lymphocytes/100 WBC (Bld) 57.1 % 19-41 [facility] Blood manual differential co mment interpretation (narrative result)Ordered By: Howard Zimmerman on 05-14-2023 Manual differential comment Porter (Bld) [Interp] SCANNED [facility] Comment on above: LYMPHOCYTOSIS NOTED Blood monocytes/100 leukocyt esOrdered By: Howard Zimmerman on 05-14-2023 Monocytes/100 WBC (Bld) 12.6 % 0-10 [facility] Blood platelet mean volumeOr dered By: Howard Zimmerman on 05-14-2023 Platelet mean volume (Bld) [Entitic vol] 10.9 fL 6.2-12.0 [facility] Culture, urineOrdered By: Keith Zimmerman on 05-14-2023 Bacteria identified Cx Nom (U) Culture exhibits no growth. [facility] Bacteria identified Cx Nom (U) Culture exhibits no growth. [facility] Determination of erythrocyte mean corpuscular volume (MCV)Ordered By: Howard Zimmerman on 05-14-2023 MCV (RBC) [Entitic vol] 95.3 fL 81-99 [facility] Hematocrit Auto (Bld) [Volum e fraction]Ordered By: Howard Zimmerman on 05-14-2023 Hematocrit (Bld) [Volume fraction] 40.6 % 37-47 [facility] Laboratory - Chemistry and C hemistry - challengeOrdered By: Howard Zimmerman on 05-14-2023 CO2 [Moles/Vol] 28.0 mmol/L 21.0-32.0 [facility] Urea nitrogen/Creatinine [Mass ratio] 15.8 mg/mg 10-20 [facility] - Hematology and Cell countsOrdered By: Howard Zimmerman on 05-14-2023 Erythrocyte distribution width (RBC) [Entitic vol] 50.0 fL 35.1-43.9 [facility] Erythrocyte distribution width (RBC) [Ratio] 14.2 % 11.6-14.6 [facility] Immature granulocytes/100 WBC (Bld) 0.300 % 0.0-0.9 [facility] Comment on above: IG% - Immature Granu locytes (promyelocytes, myelocytes and metamyelocytes) > 1% indicates that a LEFT SHIFT is Present. MCH (RBC) [Entitic mass] 30.0 pg 27.0-32.0 [facility] Nucleated RBC/100 WBC (Bld) [Ratio] 0 % 0-5 [facility] MCHC Auto (RBC) [Mass/Vol]Or dered By: Howard Zimmerman on 05-14-2023 MCHC (RBC) [Mass/Vol] 31.5 g/dL 32-36 [facility] No Panel InformationOrdered By: Howard Zimmerman on 05-14-2023 Estimated GFR (MDRD) Amer 49 mL/min >60 [facility] Comment on above: GFR Calc Estimated GFR (MDRD) Non-Af Amer 40 mL/min >60 [facility] Comment on above: Non- GFR Calc Platelets bldOrdered By: Howard Zimmerman on 05-14-2023 Platelets (Bld) [#/Vol] 333 10*3/uL 150-450 [facility] Serum or plasma calcium fran urement (mass/volume)Ordered By: Howard Zimmerman on 05-14-2023 Calcium [Mass/Vol] 8.5 mg/dL 8.5-10.1 [facility] Serum or plasma creatinine m easurement (mass/volume)Ordered By: Howard Zimmerman on 05-14-2023 Creatinine [Mass/Vol] 1.33 mg/dL 0.55-1.02 [facility] Comment on above: The validity of the calculated GFR & GFRAA in patients over 70 years has not been determined. Clinical correlation is essential. Serum or plasma urea nitroge n measurement (mass/volume)Ordered By: Howard Zimmerman on 05-14-2023 Urea nitrogen [Mass/Vol] 21 mg/dL 7-18 [facility] Thin prep Papanicolaou smear with manual screeningOrdered By: Howard Zimmerman on 05-14-2023 Thin prep Papanicolaou smear with manual screening 8 5-15 [facility] No Panel InformationOrdered By: Adam Alonso on 05-08-2023 Miscellaneous Test See comment [facility] Comment on above: Sent directly to [facility] facility per ordering physician. Absolute lymphocyte countOrd ered By: Howard Zimmerman on 04-02-2023 Lymphocytes Auto (Unsp spec) [#/Vol] 8.16 10*3/uL 0.83-4.51 [facility] Basophil percentageOrdered B y: Howard Zimmerman on 04-02-2023 Basophils/100 WBC (Bld) 2.5 % 0-1 [facility] Bilirubin [Mass/Vol] 0.50 mg/dL 0.20-1.00 [facility] Comment on above: For patients on eltr ombopag therapy, use of Dimension [place] TBIL is not recommended. Chloride [Moles/Vol] 103 mmol/L 98-107 [facility] Eosinophils/100 WBC (Bld) 0.9 % 0-5 [facility] Glucose [Mass/Vol] 102 mg/dL 74-106 [facility] Comment on above: Fasting Glucose resu lt from 100 to 125 mg/dL suggests IMPAIRED HOMEOSTASIS per A.D.A. criteria. Neutrophils (Bld) [#/Vol] 7.1 10*3/uL 2.0-7.7 [facility] Neutrophils/100 WBC (Bld) 41.0 % 47-70 [facility] Potassium [Moles/Vol] 4.1 mmol/L 3.5-5.1 [facility] Protein [Mass/Vol] 6.8 g/dL 6.4-8.2 [facility] Sodium [Moles/Vol] 137 mmol/L 136-145 [facility] WBC (Bld) [#/Vol] 17.4 10*3/uL 4.4-11.0 [facility] Blood erythrocytes count (nu mber/volume)Ordered By: Howard Zimmerman on 04-02-2023 RBC (Bld) [#/Vol] 4.08 10*6/uL 4.2-5.4 [facility] Blood hemoglobin measurement (mass/volume)Ordered By: Howard Zimmerman on 04-02-2023 Hemoglobin (Bld) [Mass/Vol] 12.1 g/dL 12.0-15.0 [facility] Blood lymphocytes/100 leukoc ytesOrdered By: Howard Zimmerman on 04-02-2023 Lymphocytes/100 WBC (Bld) 46.9 % 19-41 [facility] Blood manual differential co mment interpretation (narrative result)Ordered By: Howard Zimmerman on 04-02-2023 Manual differential comment Porter (Bld) [Interp] COMMENT [facility] Comment on above: LYMPHOCYTOSIS. Blood monocytes/100 leukocyt esOrdered By: Howard Zimmerman on 04-02-2023 Monocytes/100 WBC (Bld) 8.3 % 0-10 [facility] Blood platelet mean volumeOr dered By: Howard Zimmerman on 04-02-2023 Platelet mean volume (Bld) [Entitic vol] 9.8 fL 6.2-12.0 [facility] Determination of erythrocyte mean corpuscular volume (MCV)Ordered By: Howard Zimmerman on 04-02-2023 MCV (RBC) [Entitic vol] 94.1 fL 81-99 [facility] Hematocrit Auto (Bld) [Volum e fraction][facility] Hematocrit (Bld) [Volume fraction] 38.4 % 37-47 [facility] Laboratory - Chemistry and C hemistry - challengeOrdered By: [facility] on 04-02-2023 ALP [Catalytic activity/Vol] 91 U/L 45-117 [facility] ALT [Catalytic activity/Vol] 8 U/L 13-56 [facility] CO2 [Moles/Vol] 29.0 mmol/L 21.0-32.0 [facility] Globulin (S) [Mass/Vol] 3.3 g/dL 2.2-4.2 [facility] Urea nitrogen/Creatinine [Mass ratio] 18.3 mg/mg 10-20 [facility] - Hematology and Cell countsOrdered By: [facility] on 04-02-2023 Erythrocyte distribution width (RBC) [Entitic vol] 47.0 fL 35.1-43.9 [facility] Erythrocyte distribution width (RBC) [Ratio] 13.6 % 11.6-14.6 [facility] Immature granulocytes/100 WBC (Bld) 0.400 % 0.0-0.9 [facility] Comment on above: IG% - Immature Granu locytes (promyelocytes, myelocytes and metamyelocytes) > 1% indicates that a LEFT SHIFT is Present. MCH (RBC) [Entitic mass] 29.7 pg 27.0-32.0 [facility] Nucleated RBC/100 WBC (Bld) [Ratio] 0 % 0-5 [facility] MCHC Auto (RBC) [Mass/Vol]Or dered By: Howard Zimmerman on 04-02-2023 MCHC (RBC) [Mass/Vol] 31.5 g/dL 32-36 [facility] No Panel InformationOrdered By: [facility] on 04-02-[facility]23 Estimated GFR (MDRD) Amer 55 mL/min >60 [facility] Comment on above: GFR Calc Estimated GFR (MDRD) Non-Af Amer 45 mL/min >60 [facility] Comment on above: Non- GFR Calc Platelets bldOrdered By: Howard Zimmerman on 04-02-2023 Platelets (Bld) [#/Vol] 349 10*3/uL 150-450 [facility] Serum or plasma albumin fran urement (mass/volume)Ordered By: Howard Zimmerman on 04-02-2023 Albumin [Mass/Vol] 3.5 g/dL 3.2-5.0 [facility] Serum or plasma albumin/glob ulin mass ratioOrdered By: Howard Zimmerman on 04-02-2023 Albumin/Globulin [Mass ratio] 1.1 {ratio} 0.9-2.4 [facility] Serum or plasma calcium fran urement (mass/volume)Ordered By: Howard Zimmerman on 04-02-2023 Calcium [Mass/Vol] 9.0 mg/dL 8.5-10.1 [facility] Serum or plasma creatinine m easurement (mass/volume)Ordered By: Howard Zimmerman on 04-02-2023 Creatinine [Mass/Vol] 1.20 mg/dL 0.55-1.02 [facility] Comment on above: The validity of the calculated GFR & GFRAA in patients over 70 years has not been determined. Clinical correlation is essential. Serum or plasma urea nitroge n measurement (mass/volume)Ordered By: Howard Zimmerman on 04-02-2023 Urea nitrogen [Mass/Vol] 22 mg/dL 7-18 [facility] Thin prep Papanicolaou smear with manual screeningOrdered By: Howard Zimmerman 04-02-2023 Thin prep Papanicolaou smear with manual screening 25 U/L 15-37 [facility] Thin prep Papanicolaou smear with manual screening 5 5-15 [facility] CNPNon 03-18-2023 CNPN Telephone ([employer]) KAYLENE HAYNES ( ) 1935 F Date [...] Encounter Status:Closed by AYANNA GARZA on 03/19/23 [facility] Absolute lymphocyte countOrd ered By: Howard Zimmerman on 02-21-2023 Lymphocytes Auto (Unsp spec) [#/Vol] 6.55 10*3/uL 0.83-4.51 [facility] Basophil percentageOrdered B y: Howard Zimmerman on 02-21-2023 Basophils/100 WBC (Bld) 2.3 % 0-1 [facility] Bilirubin [Mass/Vol] 0.70 mg/dL 0.20-1.00 [facility] Comment on above: For patients on eltr ombopag therapy, use of Dimension [place] TBIL is not recommended. Chloride [Moles/Vol] 102 mmol/L 98-107 [facility] Eosinophils/100 WBC (Bld) 2.3 % 0-5 [facility] Glucose [Mass/Vol] 94 mg/dL 74-106 [facility] Neutrophils (Bld) [#/Vol] 7.3 10*3/uL 2.0-7.7 [facility] Neutrophils/100 WBC (Bld) 45.2 % 47-70 [facility] Potassium [Moles/Vol] 3.8 mmol/L 3.5-5.1 [facility] Protein [Mass/Vol] 7.1 g/dL 6.4-8.2 [facility] Sodium [Moles/Vol] 137 mmol/L 136-145 [facility] WBC (Bld) [#/Vol] 16.3 10*3/uL 4.4-11.0 [facility] Blood erythrocytes count (nu mber/volume)Ordered By: Howard Zimmerman on 02-21-2023 RBC (Bld) [#/Vol] 4.25 10*6/uL 4.2-5.4 [facility] Blood hemoglobin measurement (mass/volume)Ordered By: Howard Zimmerman on 02-21-2023 Hemoglobin (Bld) [Mass/Vol] 12.7 g/dL 12.0-15.0 [facility] Blood lymphocytes/100 leukoc ytesOrdered By: Howard Zimmerman on 02-21-2023 Lymphocytes/100 WBC (Bld) 40.3 % 19-41 [facility] Blood manual differential co mment interpretation (narrative result)Ordered By: Howard Zimmerman on 02-21-2023 Manual differential comment Porter (Bld) [Interp] COMMENT [facility] Comment on above: LYMPHOCYTOSIS.MONOCY TOSIS. Blood monocytes/100 leukocyt esOrdered By: Howard Zimmerman on 02-21-2023 Monocytes/100 WBC (Bld) 9.5 % 0-10 [facility] Blood platelet mean volumeOr dered By: Howard Zimmerman on 02-21-2023 Platelet mean volume (Bld) [Entitic vol] 9.5 fL 6.2-12.0 [facility] Determination of erythrocyte mean corpuscular volume (MCV)Ordered By: Howard Zimmerman on 02-21-2023 MCV (RBC) [Entitic vol] 94.8 fL 81-99 [facility] Hematocrit Auto (Bld) [Volum e fraction]Ordered By: Howard Erasmo on 02-21-2023 Hematocrit (Bld) [Volume fraction] 40.3 % 37-47 [facility] Laboratory - Chemistry and C hemistry - challengeOrdered By: Howard Erasmo on 02-21-2023 ALP [Catalytic activity/Vol] 110 U/L 45-117 [facility] ALT [Catalytic activity/Vol] 13 U/L 13-56 [facility] CO2 [Moles/Vol] 28.0 mmol/L 21.0-32.0 [facility] Globulin (S) [Mass/Vol] 3.5 g/dL 2.2-4.2 [facility] Urea nitrogen/Creatinine [Mass ratio] 17.1 mg/mg 10-20 [facility] - Hematology and Cell countsOrdered By: Howard Zimmerman on 02-21-2023 Erythrocyte distribution width (RBC) [Entitic vol] 46.6 fL 35.1-43.9 [facility] Erythrocyte distribution width (RBC) [Ratio] 13.4 % 11.6-14.6 [facility] Immature granulocytes/100 WBC (Bld) 0.400 % 0.0-0.9 [facility] Comment on above: IG% - Immature Granu locytes (promyelocytes, myelocytes and metamyelocytes) > 1% indicates that a LEFT SHIFT is Present. MCH (RBC) [Entitic mass] 29.9 pg 27.0-32.0 [facility] Nucleated RBC/100 WBC (Bld) [Ratio] 0 % 0[facility]5 [facility] [Mass/Vol]Or dered By: Howard Zimmerman on 02-21-2023 MCHC (RBC) [Mass/Vol] 31.5 g/dL 32-36 [facility] No Panel InformationOrdered By: Howard Zimmerman on 02-21-2023 Estimated GFR (MDRD) Amer 53 mL/min >60 [facility] Comment on above: GFR Calc Estimated GFR (MDRD) Non-Af Amer 44 mL/min >60 [facility] Comment on above: Non- GFR Calc Thyroid Stimulating Hormone (TSH) 2.25 uIU/mL 0.358-3.74 [facility] Vitamin D 25-Hydroxy 57.4 ng/mL [facility] Comment on above: Vitamin D 25(OH) Sta tus Range Deficiency <20 ng/mL (50nmol/L) Insufficiency 20 - 30 ng/mL (50 - 75 nmol/L) Sufficiency 30 - 100 ng/mL (75 - 250 nmol/L) Toxicity >100 ng/mL (>250 nmol/L) Platelets bldOrdered By: Howard Zimmerman on 02-21-2023 Platelets (Bld) [#/Vol] 372 10*3/uL 150-450 [facility] Review by pathologistOrdered By: Howard Zimmerman on 02-21-2023 Pathologist review Porter (Unsp spec) [Interp] Reviewed [facility] Comment on above: Previous reported re sult: Heide mckenna Edited by: BINA on 02/22/23:1321Leukocytosis.Clinical correlation necessary.Nilton Flaherty M.D. 02/22/23 AMENDED REPORT 02/22/23 1321 PATH REV previously reported as: Heide mckenna Serum or plasma albumin fran urement (mass/volume)Ordered By: Howard Zimmerman on 02-21-2023 Albumin [Mass/Vol] 3.6 g/dL 3.2-5.0 [facility] Serum or plasma albumin/glob ulin mass ratioOrdered By: Howard Zimmerman on 02-21-2023 Albumin/Globulin [Mass ratio] 1.0 {ratio} 0.9-2.4 [facility] Serum or plasma calcium fran urement (mass/volume)Ordered By: Howard Zimmerman on 02-21-2023 Calcium [Mass/Vol] 9.1 mg/dL 8.5-10.1 [facility] Serum or plasma creatinine m easurement (mass/volume)Ordered By: Howard Zimmerman on 02-21-2023 Creatinine [Mass/Vol] 1.23 mg/dL 0.55-1.02 [facility] Comment on above: The validity of the calculated GFR & GFRAA in patients over 70 years has not been determined. Clinical correlation is essential. Serum or plasma urea nitroge n measurement (mass/volume)Ordered By: Howard Zimmerman on 02-21-2023 Urea nitrogen [Mass/Vol] 21 mg/dL 7-18 [facility] Thin prep Papanicolaou smear with manual screeningOrdered By: Howard Zimmerman on 02-21-2023 Thin prep Papanicolaou smear with manual screening 28 U/L 15-37 [facility] Thin prep Papanicolaou smear with manual screening 7 5-15 [facility] Basophil percentageOrdered B y: Gonzalez Garza on 01-16-2023 Cholesterol [Mass/Vol] 187 mg/dL <200 [facility] Comment on above: <200 mg/dL Desirable 200-240 mg/dL Borderline >240 mg/dL High Risk Triglyceride [Mass/Vol] 129 mg/dL <199 [facility] Comment on above: The drugs N-Acetylcy steine and Metamizole may falsely depress this assay.Serum Triglycerides Reference Interval Normal <150 mg/dL Borderline high 150 - 199 mg/dL High 200 - 499 mg/dL Very High > or = 500 mg/dL Serum or plasma cholesterol in HDL measurement (mass/volume)Ordered By: Gonzalez Garza on 01-16-2023 Cholesterol in HDL [Mass/Vol] 59 mg/dL >40 [facility] Comment on above: The drugs N-Acetylcy steine and Metamizole may falsely depress this assay. Reference Range HDL <40 mg/dL Low HDL Cholesterol HDL >or= 60 mg/dL High HDL Cholesterol Serum or plasma cholesterol in VLDL measurement (mass/volume)Ordered By: Gonzalez Garza on 01-16-2023 Cholesterol in VLDL [Mass/Vol] 26 mg/dL 5-40 [facility] Serum or plasma low density lipoprotein (LDL) cholesterol measurement (mass/volume)Ordered By: Gonzalez Garza on 01-16-2023 Cholesterol in LDL [Mass/Vol] 102 mg/dL 0-130 [facility] Absolute lymphocyte countOrd ered By: Stephanie Gonzalez on 01-15-2023 Lymphocytes Auto (Unsp spec) [#/Vol] 4.97 10*3/uL 0.83-4.51 [facility] Basophil percentageOrdered B y: Stephanie Gonzalez on 01-15-2023 Basophils/100 WBC (Bld) 2.4 % 0-1 [facility] Chloride [Moles/Vol] 102 mmol/L 98-107 [facility] Eosinophils/100 WBC (Bld) 1.3 % 0-5 [facility] Glucose [Mass/Vol] 153 mg/dL 74-106 [facility] Comment on above: Fasting Glucose resu lt greater than or equal to 126 mg/dL suggests DIABETES MELLITUS per A.D.A. criteria. Neutrophils (Bld) [#/Vol] 5.6 10*3/uL 2.0-7.7 [facility] Neutrophils/100 WBC (Bld) 45.8 % 47-70 [facility] Potassium [Moles/Vol] 3.9 mmol/L 3.5-5.1 [facility] Sodium [Moles/Vol] 134 mmol/L 136-145 [facility] WBC (Bld) [#/Vol] 12.2 10*3/uL 4.4-11.0 [facility] Blood erythrocytes count (nu mber/volume)Ordered By: Stephanie Gonzalez on 01-15-2023 RBC (Bld) [#/Vol] 3.67 10*6/uL 4.2-5.4 [facility] Blood hemoglobin measurement (mass/volume)Ordered By: Stephanie Gonzalez on 01-15-2023 Hemoglobin (Bld) [Mass/Vol] 11.4 g/dL 12.0-15.0 [facility] Blood lymphocytes/100 leukoc ytesOrdered By: Stehpanie Gonzalez on 01-15-2023 Lymphocytes/100 WBC (Bld) 40.9 % 19-41 [facility] Blood monocytes/100 leukocyt esOrdered By: Stephanie Gonzalez on 01-15-2023 Monocytes/100 WBC (Bld) 9.2 % 0-10 [facility] Blood platelet mean volumeOr dered By: Stephanie Gonzalez on 01-15-2023 Platelet mean volume (Bld) [Entitic vol] 9.0 fL 6.2-12.0 [facility] Determination of erythrocyte mean corpuscular volume (MCV)Ordered By: Stephanie Gonzalez on 01-15-2023 MCV (RBC) [Entitic vol] 93.7 fL 81-99 [facility] Hematocrit Auto (Bld) [Volum e fraction]Ordered By: Stephanie Gonzalez on 01-15-2023 Hematocrit (Bld) [Volume fraction] 34.4 % 37-47 [facility] INR in Blood by Coagulation assayOrdered By: Stephanie Gonzalez on 01-15-2023 INR Coag (Bld) [Relative time] 1.1 {INR} [facility] - Chemistry and C hemistry - challengeOrdered By: Stephanie Gonzalez on 01-15-2023 CO2 [Moles/Vol] 29.0 mmol/L 21.0-32.0 [facility] Urea nitrogen/Creatinine [Mass ratio] 15.8 mg/mg 10-20 [facility] - CoagulationOrde red By: Stephanie Gonzalez on 01-15-2023 aPTT Coag (Bld) [Time] 25.4 s 24.1-36.2 [facility] PT Coag (PPP) [Time] 14.1 s 11.7-14.9 [facility] Laboratory - Hematology and Cell countsOrdered By: Stephanie Gonzalez on 01-15-2023 Erythrocyte distribution width (RBC) [Entitic vol] 46.2 fL 35.1-43.9 [facility] Erythrocyte distribution width (RBC) [Ratio] 13.4 % 11.6-14.6 [facility] Immature granulocytes/100 WBC (Bld) 0.400 % 0.0-0.9 [facility] Comment on above: IG% - Immature Granu locytes (promyelocytes, myelocytes and metamyelocytes) > 1% indicates that a LEFT SHIFT is Present. MCH (RBC) [Entitic mass] 31.1 pg 27.0-32.0 [facility] Nucleated RBC/100 WBC (Bld) [Ratio] 0 % 0-5 [facility] [Mass/Vol]Or dered By: Stephanie Gonzalez on 01-15-2023 MCHC (RBC) [Mass/Vol] 33.1 g/dL 32-36 [facility] No Panel InformationOrdered By: Stephanie Gonzalez on 01-15-2023 Estimated Creatinine Clearance Calc 21.86 ml/min [facility] Estimated GFR (MDRD) Amer 49 mL/min >60 [facility] Comment on above: GFR Calc Estimated GFR (MDRD) Non-Af Amer 40 mL/min >60 [facility] Comment on above: Non- GFR Calc Troponin I High Sensitivity 5 pg/mL 3.0-54.0 [facility] Comment on above: Please Note: New Shreya t Units and Gender Specific Reference Ranges. For more information see Policy Stat Procedure [place] High Sensitivity Troponin (TNIH) and attachments. Platelets bldOrdered By: Ary Gonzalez on 01-15-2023 Platelets (Bld) [#/Vol] 313 10*3/uL 150-450 [facility] Serum or plasma calcium fran urement (mass/volume)Ordered By: Stephanie Gonzalez on 01-15-2023 Calcium [Mass/Vol] 8.2 mg/dL 8.5-10.1 [facility] Serum or plasma creatinine m easurement (mass/volume)Ordered By: Stephanie Gonzalez on 01-15-2023 Creatinine [Mass/Vol] 1.33 mg/dL 0.55-1.02 [facility] Comment on above: The validity of the calculated GFR & GFRAA in patients over 70 years has not been determined. Clinical correlation is essential. Serum or plasma urea nitroge n measurement (mass/volume)Ordered By: Stephanie Gonzalez on 01-15-2023 Urea nitrogen [Mass/Vol] 21 mg/dL 7-18 [facility] Thin prep Papanicolaou smear with manual screeningOrdered By: Stephanie Gonzalez on 01-15-2023 Thin prep Papanicolaou smear with manual screening 3 5-15 [facility] COVID-19 virus antigen assay Ordered By: Dr. Zimmerman on 12-08-2022 SARS-CoV-2 (COVID-19) Ag IA.rapid Ql (Resp) Not detected Not Detect [facility] Comment on above: Normal Reference Ran [...] Types A,B Direct FA (ARIANNA) Influenzae A [facility] No Panel InformationOrdered By: Dr. Zimmerman on 12-08-2022 Influenza Types A,B Direct FA (ARIANNA) Influenzae A [facility] RSV Ag EIAOrdered By: Howard almaraz on 12-08-2022 RSV Ag Immune stain Ql (Tiss) [facility] RSV Ag EIAOrdered By: Dr. Rikki almaraz on 12-08-2022 RSV Ag Immune stain Ql (Tiss) [facility] No Panel InformationOrdered By: Dr. Cobb on 08-30-2022 Miscellaneous Test See comment [facility] Comment on above: Sent directly to [facility] per ordering physician. Absolute lymphocyte countOrd ered By: Dr. Pinon on 08-29-2022 Lymphocytes Auto (Unsp spec) [#/Vol] 7.48 10*3/uL 0.83-4.51 [facility] Basophil percentageOrdered B y: Dr. Pinon on 08-29-2022 Basophil percentage 3.9 mg/dL 2.5-4.9 [facility] Basophils/100 WBC (Bld) 2.8 % 0-1 [facility] Bilirubin [Mass/Vol] 0.40 mg/dL 0.20-1.00 [facility] Comment on above: For patients on eltr ombopag therapy, use of Dimension [place] TBIL is not recommended. Chloride [Moles/Vol] 104 mmol/L 98-107 [facility] Eosinophils/100 WBC (Bld) 2.7 % 0-5 [facility] Glucose [Mass/Vol] 94 mg/dL 74-106 [facility] Neutrophils (Bld) [#/Vol] 4.9 10*3/uL 2.0-7.7 [facility] Neutrophils/100 WBC (Bld) 33.6 % 47-70 [facility] Potassium [Moles/Vol] 4.0 mmol/L 3.5-5.1 [facility] Protein [Mass/Vol] 7.2 g/dL 6.4-8.2 [facility] Sodium [Moles/Vol] 140 mmol/L 136-145 [facility] WBC (Bld) [#/Vol] 14.7 10*3/uL 4.4-11.0 [facility] Blood erythrocytes count (nu mber/volume)Ordered By: Dr. Pinon on 08-29-2022 RBC (Bld) [#/Vol] 4.30 10*6/uL 4.2-5.4 [facility] Blood hemoglobin measurement (mass/volume)Ordered By: Dr. Pinon on 08-29-2022 Hemoglobin (Bld) [Mass/Vol] 13.1 g/dL 12.0-15.0 [facility] Blood lymphocytes/100 leukoc ytesOrdered By: Dr. Pinon on 08-29-2022 Lymphocytes/100 WBC (Bld) 50.9 % 19-41 [facility] Blood manual differential co mment interpretation (narrative result)Ordered By: Dr. Pinon on 08-29-2022 Manual differential comment Poretr (Bld) [Interp] SCANNED [facility] Comment on above: LYMPHOCYTOSIS NOTED Blood monocytes/100 leukocyt esOrdered By: Dr. Pinon on 08-29-2022 Monocytes/100 WBC (Bld) 9.8 % 0-10 [facility] Blood platelet mean volumeOr dered By: Dr. Pinon on 08-29-2022 Platelet mean volume (Bld) [Entitic vol] 10.3 fL 6.2-12.0 [facility] Determination of erythrocyte mean corpuscular volume (MCV)Ordered By: Dr. Pinon on 08-29-2022 MCV (RBC) [Entitic vol] 95.3 fL 81-99 [facility] Hematocrit Auto (Bld) [Volum e fraction]Ordered By: Dr. Pinon on 08-29-2022 Hematocrit (Bld) [Volume fraction] 41.0 % 37-47 [facility] Laboratory - Chemistry and C hemistry - challengeOrdered By: Dr. Pinon on 08-29-2022 ALP [Catalytic activity/Vol] 91 U/L 45-117 [facility] ALT [Catalytic activity/Vol] 17 U/L 13-56 [facility] CO2 [Moles/Vol] 29.0 mmol/L 21.0-32.0 [facility] Globulin (S) [Mass/Vol] 3.6 g/dL 2.2-4.2 [facility] Urea nitrogen/Creatinine [Mass ratio] 17.8 mg/mg 10-20 [facility] - Hematology and Cell countsOrdered By: Dr. Pinon on 08-29-2022 Erythrocyte distribution width (RBC) [Entitic vol] 47.4 fL 35.1-43.9 [facility] Erythrocyte distribution width (RBC) [Ratio] 13.5 % 11.6-14.6 [facility] Immature granulocytes/100 WBC (Bld) 0.200 % 0.0-0.9 [facility] Comment on above: IG% - Immature Granu locytes (promyelocytes, myelocytes and metamyelocytes) > 1% indicates that a LEFT SHIFT is Present. MCH (RBC) [Entitic mass] 30.5 pg 27.0-32.0 [facility] Nucleated RBC/100 WBC (Bld) [Ratio] 0 % 0-5 [facility] MCHC Auto (RBC) [Mass/Vol]Or dered By: Dr. Pinon on 08-29-2022 MCHC (RBC) [Mass/Vol] 32.0 g/dL 32-36 [facility] No Panel InformationOrdered By: Dr. Pinon on 08-29-2022 Estimated GFR (MDRD) Amer 56 mL/min >60 [facility] Comment on above: GFR Calc Estimated GFR (MDRD) Non-Af Amer 46 mL/min >60 [facility] Comment on above: Non- GFR Calc Thyroid Stimulating Hormone (TSH) 3.01 uIU/mL 0.358-3.74 [facility] Vitamin D 25-Hydroxy 52.0 ng/mL [facility] Comment on above: Vitamin D 25(OH) Sta tus Range Deficiency <20 ng/mL (50nmol/L) Insufficiency 20 - 30 ng/mL (50 - 75 nmol/L) Sufficiency 30 - 100 ng/mL (75 - 250 nmol/L) Toxicity >100 ng/mL (>250 nmol/L) Platelets bldOrdered By: Dr. Pinon on 08-29-2022 Platelets (Bld) [#/Vol] 380 10*3/uL 150-450 [facility] Serum or plasma albumin fran urement (mass/volume)Ordered By: Dr. Pinon on 08-29-2022 Albumin [Mass/Vol] 3.6 g/dL 3.2-5.0 [facility] Serum or plasma albumin/glob ulin mass ratioOrdered By: Dr. Pinon on 08-29-2022 Albumin/Globulin [Mass ratio] 1.0 {ratio} 0.9-2.4 [facility] Serum or plasma calcium fran urement (mass/volume)Ordered By: Dr. Pinon on 08-29-2022 Calcium [Mass/Vol] 9.0 mg/dL 8.5-10.1 [facility] Serum or plasma creatinine m easurement (mass/volume)Ordered By: Dr. Pinon on 08-29-2022 Creatinine [Mass/Vol] 1.18 mg/dL 0.55-1.02 [facility] Comment on above: The validity of the calculated GFR & GFRAA in patients over 70 years has not been determined. Clinical correlation is essential. Serum or plasma urea nitroge n measurement (mass/volume)Ordered By: Dr. Pinon on 08-29-2022 Urea nitrogen [Mass/Vol] 21 mg/dL 7-18 [facility] Thin prep Papanicolaou smear with manual screeningOrdered By: Dr. Pinon on 08-29-2022 Thin prep Papanicolaou smear with manual screening 34 U/L 15-37 [facility] Thin prep Papanicolaou smear with manual screening 7 5-15 [facility] CNTHERAPYon 07-18-2022 CNTHERAPY OT/PT/Speech Visit (LDPT) KAYLENE HAYNES ([id number]) 1935 F Date Time Provider Department 07/18/22 [...] of Care: created on 07/18/22 through 09/16/22 [place] in home exercise program. Patient will demonstrate [...] Planned: 8 Planned Treatment Interventions: Therapeutic exercise (71453), Neuromuscular re-education (89878), Therapeutic activities (90674), Patient/Family/Caregiv er Education, Gait Training (68380) PLAN FOR NEXT VISIT: pt would like [...] Retired Recreation / Current Exercise: exercises at [employer] in [place] 3 days/week AND goes to [employer] group exercise class 2 days/week at [facility] in [place] Home Environment Patient Lives With: Self/Alone Home [...] is th (more content not included)... Normal [facility] Fungus cultureOrdered By: Dr Liu Zimmerman on 07-06-2022 Fungus identified Cx Nom (Unsp spec) [facility] Fungus stainOrdered By: Dr. Zimmerman on 07-06-2022 Fungus identified Fungus stain Nom (Unsp spec) [facility] GLEN SCREENINGon 06-30-2022 [facility] No Panel InformationOrdered By: Dr. Zimmerman on 06-01-2022 Methicillin-Resist S.aureus DNA PCR Negative Negative [facility] Staphylococcus aureus DNA de tection by probe and target amplification methodOrdered By: Dr. Zimmerman on 06-01-2022 S. aureus DNA DEONTE+probe Ql (Unsp spec) Negative Negative [facility] Absolute lymphocyte countOrd ered By: Dr. Zimmerman on 05-25-2022 Lymphocytes Auto (Unsp spec) [#/Vol] 6.59 10*3/uL 0.83-4.51 [facility] Basophil percentageOrdered B y: Dr. Zimmerman on 05-25-2022 Basophils/100 WBC (Bld) 2.5 % 0-1 [facility] Bilirubin [Mass/Vol] 0.40 mg/dL 0.20-1.00 [facility] Comment on above: For patients on eltr ombopag therapy, use of Dimension [place] TBIL is not recommended. Chloride [Moles/Vol] 102 mmol/L 98-107 [facility] Eosinophils/100 WBC (Bld) 1.9 % 0-5 [facility] Glucose [Mass/Vol] 97 mg/dL 74-106 [facility] Neutrophils (Bld) [#/Vol] 7.1 10*3/uL 2.0-7.7 [facility] Neutrophils/100 WBC (Bld) 43.8 % 47-70 [facility] Potassium [Moles/Vol] 4.2 mmol/L 3.5-5.1 [facility] Protein [Mass/Vol] 6.8 g/dL 6.4-8.2 [facility] Sodium [Moles/Vol] 138 mmol/L 136-145 [facility] WBC (Bld) [#/Vol] 16.2 10*3/uL 4.4-11.0 [facility] Blood erythrocytes count (nu mber/volume)Ordered By: Dr. Zimmerman on 05-25-2022 RBC (Bld) [#/Vol] 3.96 10*6/uL 4.2-5.4 [facility] Blood hemoglobin measurement (mass/volume)Ordered By: Dr. Zimmerman on 05-25-2022 Hemoglobin (Bld) [Mass/Vol] 12.5 g/dL 12.0-15.0 [facility] Blood lymphocytes/100 leukoc ytesOrdered By: Dr. Zimmerman on 05-25-2022 Lymphocytes/100 WBC (Bld) 40.8 % 19-41 [facility] Blood manual differential co mment interpretation (narrative result)Ordered By: Dr. Zimmerman on 05-25-2022 Manual differential comment Porter (Bld) [Interp] SCANNED [facility] Comment on above: LYMPHOCYTOSIS NOTEDM ONOCYTOSIS NOTED Blood monocytes/100 leukocyt esOrdered By: Dr. Zimmerman on 05-25-2022 Monocytes/100 WBC (Bld) 10.6 % 0-10 [facility] Blood platelet mean volumeOr dered By: Dr. Zimmerman on 05-25-2022 Platelet mean volume (Bld) [Entitic vol] 9.5 fL 6.2-12.0 [facility] Determination of erythrocyte mean corpuscular volume (MCV)Ordered By: Dr. Zimmerman on 05-25-2022 MCV (RBC) [Entitic vol] 95.5 fL 81-99 [facility] Hematocrit Auto (Bld) [Volum e fraction]Ordered By: Dr. Zimmerman on 05-25-2022 Hematocrit (Bld) [Volume fraction] 37.8 % 37-47 [facility] Laboratory - Chemistry and C hemistry - challengeOrdered By: Dr. Zimmerman on 05-25-2022 ALP [Catalytic activity/Vol] 86 U/L 45-117 [facility] ALT [Catalytic activity/Vol] 11 U/L 13-56 [facility] CO2 [Moles/Vol] 31.0 mmol/L 21.0-32.0 [facility] Globulin (S) [Mass/Vol] 3.5 g/dL 2.2-4.2 [facility] Urea nitrogen/Creatinine [Mass ratio] 16.0 mg/mg 10-20 [facility] Laboratory - Hematology and Cell countsOrdered By: Dr. Zimmerman on 05-25-2022 Erythrocyte distribution width (RBC) [Entitic vol] 48.0 fL 35.1-43.9 [facility] Erythrocyte distribution width (RBC) [Ratio] 13.6 % 11.6-14.6 [facility] Immature granulocytes/100 WBC (Bld) 0.400 % 0.0-0.9 [facility] Comment on above: IG% - Immature Granu locytes (promyelocytes, myelocytes and metamyelocytes) > 1% indicates that a LEFT SHIFT is Present. MCH (RBC) [Entitic mass] 31.6 pg 27.0-32.0 [facility] Nucleated RBC/100 WBC (Bld) [Ratio] 0 % 0-5 [facility] MCHC Auto (RBC) [Mass/Vol]Or dered By: Dr. Zimmerman on 05-25-2022 MCHC (RBC) [Mass/Vol] 33.1 g/dL 32-36 [facility] No Panel InformationOrdered By: Dr. Zimmerman on 05-25-2022 Estimated GFR (MDRD) Amer 50 mL/min >60 [facility] Comment on above: GFR Calc Estimated GFR (MDRD) Non-Af Amer 41 mL/min >60 [facility] Comment on above: Non- GFR Calc Thyroid Stimulating Hormone (TSH) 2.03 uIU/mL 0.358-3.74 [facility] Vitamin D 25-Hydroxy 37.9 ng/mL [facility] Comment on above: Vitamin D 25(OH) Sta tus Range Deficiency <20 ng/mL (50nmol/L) Insufficiency 20 - 30 ng/mL (50 - 75 nmol/L) Sufficiency 30 - 100 ng/mL (75 - 250 nmol/L) Toxicity >100 ng/mL (>250 nmol/L) Platelets bldOrdered By: Dr. Zimmerman on 05-25-2022 Platelets (Bld) [#/Vol] 376 10*3/uL 150-450 [facility] Review by pathologistOrdered By: Dr. Zimmerman on 05-25-2022 Pathologist review Porter (Unsp spec) [Interp] Reviewed [facility] Comment on above: Previous reported re sult: October bala Edited by: BINA on 05/26/22:1207Leukocytosis. Clinical correlation necessary.Nilton Flaherty M.D. 05/26/22 AMENDED REPORT 05/26/22 1207 PATH REV previously reported as: October bala Serum or plasma albumin fran urement (mass/volume)Ordered By: Dr. Zimmerman on 05-25-2022 Albumin [Mass/Vol] 3.3 g/dL 3.2-5.0 [facility] Serum or plasma albumin/glob ulin mass ratioOrdered By: Dr. Zimmerman on 05-25-2022 Albumin/Globulin [Mass ratio] 0.9 {ratio} 0.9-2.4 [facility] Serum or plasma calcium fran urement (mass/volume)Ordered By: Dr. Zimmerman on 05-25-2022 Calcium [Mass/Vol] 9.0 mg/dL 8.5-10.1 [facility] Serum or plasma creatinine m easurement (mass/volume)Ordered By: Dr. Zimmerman on 05-25-2022 Creatinine [Mass/Vol] 1.31 mg/dL 0.55-1.02 [facility] Comment on above: The validity of the calculated GFR & GFRAA in patients over 70 years has not been determined. Clinical correlation is essential. Serum or plasma urea nitroge n measurement (mass/volume)Ordered By: Dr. Zimmerman on 05-25-2022 Urea nitrogen [Mass/Vol] 21 mg/dL 7-18 [facility] Thin prep Papanicolaou smear with manual screeningOrdered By: Dr. Zimmerman on 05-25-2022 Thin prep Papanicolaou smear with manual screening 25 U/L 15-37 [facility] Thin prep Papanicolaou smear with manual screening 5 5-15 [facility] Absolute lymphocyte countOrd ered By: Bart Bhandari on 05-12-2022 Lymphocytes Auto (Unsp spec) [#/Vol] 4.67 10*3/uL 0.83-4.51 [facility] Basophil percentageOrdered B y: Bart Bhandari on 05-12-2022 Basophils/100 WBC (Bld) 1.5 % 0-1 [facility] Chloride [Moles/Vol] 103 mmol/L 98-107 [facility] Eosinophils/100 WBC (Bld) 0.3 % 0-5 [facility] Glucose [Mass/Vol] 106 mg/dL 74-106 [facility] Comment on above: Fasting Glucose resu lt from 100 to 125 mg/dL suggests IMPAIRED HOMEOSTASIS per A.D.A. criteria. Neutrophils (Bld) [#/Vol] 9.3 10*3/uL 2.0-7.7 [facility] Neutrophils/100 WBC (Bld) 59.5 % 47-70 [facility] Potassium [Moles/Vol] 4.2 mmol/L 3.5-5.1 [facility] Sodium [Moles/Vol] 140 mmol/L 136-145 [facility] WBC (Bld) [#/Vol] 15.7 10*3/uL 4.4-11.0 [facility] Blood erythrocytes count (nu mber/volume)Ordered By: Bart Bhandari on 05-12-2022 RBC (Bld) [#/Vol] 4.06 10*6/uL 4.2-5.4 [facility] Blood hemoglobin measurement (mass/volume)Ordered By: Bart Bhandari on 05-12-2022 Hemoglobin (Bld) [Mass/Vol] 12.8 g/dL 12.0-15.0 [facility] Blood lymphocytes/100 leukoc ytesOrdered By: Bart Bhandari on 05-12-2022 Lymphocytes/100 WBC (Bld) 29.8 % 19-41 [facility] Blood monocytes/100 leukocyt esOrdered By: Bart Bhandari on 05-12-2022 Monocytes/100 WBC (Bld) 8.5 % 0-10 [facility] Blood platelet mean volumeOr dered By: Bart Bhandari on 05-12-2022 Platelet mean volume (Bld) [Entitic vol] 9.1 fL 6.2-12.0 [facility] Determination of erythrocyte mean corpuscular volume (MCV)Ordered By: Bart Bhandari on 05-12-2022 MCV (RBC) [Entitic vol] 96.1 fL 81-99 [facility] Hematocrit Auto (Bld) [Volum e fraction]Ordered By: Bart Bhandari on 05-12-2022 Hematocrit (Bld) [Volume fraction] 39.0 % 37-47 [facility] Laboratory - Chemistry and C hemistry - challengeOrdered By: Bart Bhandari on 05-12-2022 CO2 [Moles/Vol] 32.0 mmol/L 21.0-32.0 [facility] Urea nitrogen/Creatinine [Mass ratio] 17.1 mg/mg 10-20 [facility] Laboratory - Hematology and Cell countsOrdered By: Bart Bhandari on 05-12-2022 Erythrocyte distribution width (RBC) [Entitic vol] 48.5 fL 35.1-43.9 [facility] Erythrocyte distribution width (RBC) [Ratio] 13.6 % 11.6-14.6 [facility] Immature granulocytes/100 WBC (Bld) 0.400 % 0.0-0.9 [facility] Comment on above: IG% - Immature Granu locytes (promyelocytes, myelocytes and metamyelocytes) > 1% indicates that a LEFT SHIFT is Present. MCH (RBC) [Entitic mass] 31.5 pg 27.0-32.0 [facility] Nucleated RBC/100 WBC (Bld) [Ratio] 0 % 0-5 [facility] MCHC Auto (RBC) [Mass/Vol]Or dered By: Bart Bhandari on 05-12-2022 MCHC (RBC) [Mass/Vol] 32.8 g/dL 32-36 [facility] No Panel InformationOrdered By: Bart Bhandari on 05-12-2022 Troponin I High Sensitivity 5 pg/mL 3.0-54.0 [facility] Comment on above: Please Note: New Shreya t Units and Gender Specific Reference Ranges. For more information see Policy Stat Procedure [place] High Sensitivity Troponin (TNIH) and attachments. Estimated Creatinine Clearance Calc 25.17 ml/min [facility] Estimated GFR (MDRD) Amer 56 mL/min >60 [facility] Comment on above: GFR Calc Estimated GFR (MDRD) Non-Af Amer 47 mL/min >60 [facility] Comment on above: Non- GFR Calc Platelets bldOrdered By: Eliana Bhandari on 05-12-2022 Platelets (Bld) [#/Vol] 382 10*3/uL 150-450 [facility] Serum or plasma calcium fran urement (mass/volume)Ordered By: Bart Bhandari on 05-12-2022 Calcium [Mass/Vol] 9.6 mg/dL 8.5-10.1 [facility] Serum or plasma creatinine m easurement (mass/volume)Ordered By: Bart Bhandari on 05-12-2022 Creatinine [Mass/Vol] 1.17 mg/dL 0.55-1.02 [facility] Comment on above: The validity of the calculated GFR & GFRAA in patients over 70 years has not been determined. Clinical correlation is essential. Serum or plasma urea nitroge n measurement (mass/volume)Ordered By: Bart Bhandari on 05-12-2022 Urea nitrogen [Mass/Vol] 20 mg/dL 7-18 [facility] Thin prep Papanicolaou smear with manual screeningOrdered By: Bart Bhandari on 05-12-2022 Thin prep Papanicolaou smear with manual screening 5 5-15 [facility] Basophil percentageOrdered B y: Dr. Zimmerman on 04-19-2022 Chloride [Moles/Vol] 106 mmol/L 98-107 [facility] Glucose [Mass/Vol] 89 mg/dL 74-106 [facility] Potassium [Moles/Vol] 4.4 mmol/L 3.5-5.1 [facility] Sodium [Moles/Vol] 138 mmol/L 136-145 [facility] Laboratory - Chemistry and C hemistry - challengeOrdered By: Dr. Zimmerman on 04-19-2022 CO2 [Moles/Vol] 29.0 mmol/L 21.0-32.0 [facility] Urea nitrogen/Creatinine [Mass ratio] 16.4 mg/mg 10-20 [facility] No Panel InformationOrdered By: Dr. Zimmerman on 04-19-2022 Estimated GFR (MDRD) Amer 54 mL/min >60 [facility] Comment on above: GFR Calc Estimated GFR (MDRD) Non-Af Amer 44 mL/min >60 [facility] Comment on above: Non- GFR Calc Serum or plasma calcium fran urement (mass/volume)Ordered By: Dr. Zimmerman on 04-19-2022 Calcium [Mass/Vol] 9.0 mg/dL 8.5-10.1 [facility] Serum or plasma creatinine m easurement (mass/volume)Ordered By: Dr. Zimmerman on 04-19-2022 Creatinine [Mass/Vol] 1.22 mg/dL 0.55-1.02 [facility] Comment on above: The validity of the calculated GFR & GFRAA in patients over 70 years has not been determined. Clinical correlation is essential. Serum or plasma urea nitroge n measurement (mass/volume)Ordered By: Dr. Zimmerman on 04-19-2022 Urea nitrogen [Mass/Vol] 20 mg/dL 7-18 [facility] Thin prep Papanicolaou smear with manual screeningOrdered By: Dr. Zimmerman on 04-19-2022 Thin prep Papanicolaou smear with manual screening 3 5-15 [facility] Laboratory - Microbiology an d Antimicrobial susceptibilityOrdered By: Dr. Zimmerman on 04-07-2022 SARS-CoV-2 (COVID-19) RNA DEONTE+probe Ql (Unsp spec) Not detected Not Detect [facility] Comment on above: Normal Reference Ran ge: Not DetectedMethod:(RT-PCR) real-time reverse transcriptase PCRLuminex THOMAS Instrument*The Food and Drug Administration (FDA) has issued an Emergency Use Authorization (EAU) for the [employer] SARS-CoV-2 Assay for the rapid detection of [...] 04-07-2022 Influenza Types A,B Direct FA (ARIANNA) [facility] RSV Ag EIAOrdered By: Dr. Rikki almaraz on 04-07-2022 RSV Ag Immune stain Ql (Tiss) [facility] Laboratory - Microbiology an d Antimicrobial susceptibilityon 03-30-2022 SARS-CoV-2 (COVID-19) RNA DEONTE+probe Ql (Unsp spec) Not detected [facility] No Panel Informationon 03-30 POC Nasal Swab Influenza A,B Not detected [facility] POC Nasal Swab RSV Not detected [facility] Laboratory - Microbiology an d Antimicrobial susceptibilityon 03-07-2022 SARS-CoV-2 (COVID-19) RNA DEONTE+probe Ql (Unsp spec) Not detected Not Detect [facility] Work Phone: Comment on above: Normal [...] Auto (Unsp spec) [#/Vol] 8.34 10*3/uL 0.83-4.51 [facility] Work Phone: Basophil percentageon 2021 Basophils/100 WBC (Bld) 2.3 % 0-1 [facility] Work Phone: Bilirubin [Mass/Vol] 0.50 mg/dL 0.20-1.00 [facility] Work Phone: Comment on above: For patients on eltr ombopag therapy, use of Dimension [place] TBIL is not recommended. Chloride [Moles/Vol] 103 mmol/L 98-107 [facility] Work Phone: Eosinophils/100 WBC (Bld) 1.1 % 0-5 [facility] Work Phone: Glucose [Mass/Vol] 105 mg/dL 74-106 [facility] Work Phone: Comment on above: Fasting Glucose resu lt from 100 to 125 mg/dL suggests IMPAIRED HOMEOSTASIS per A.D.A. criteria. Neutrophils (Bld) [#/Vol] 7.4 10*3/uL 2.0-7.7 [facility] Work Phone: Neutrophils/100 WBC (Bld) 42.2 % 47-70 [facility] Work Phone: Potassium [Moles/Vol] 4.3 mmol/L 3.5-5.1 [facility] Work Phone: Protein [Mass/Vol] 7.3 g/dL 6.4-8.2 [facility] Work Phone: Sodium [Moles/Vol] 140 mmol/L 136-145 [facility] Work Phone: WBC (Bld) [#/Vol] 17.4 10*3/uL 4.4-11.0 [facility] Work Phone: [phone] Blood erythrocytes count (nu mber/volume)on 03-06-2022 RBC (Bld) [#/Vol] 4.15 10*6/uL 4.2-5.4 [facility] Work Phone: Blood hemoglobin measurement (mass/volume)on 03-06-2022 Hemoglobin (Bld) [Mass/Vol] 12.7 g/dL 12.0-15.0 [facility] Work Phone: [phone] Blood lymphocytes/100 leukoc yteson 03-06-2022 Lymphocytes/100 WBC (Bld) 48.0 % 19-41 [facility] Work Phone: Blood manual differential co mment interpretation (narrative result)on 03-06-2022 Manual differential comment Porter (Bld) [Interp] See comment [facility] Work Phone: Comment on above: LYMPHOCYTOSIS NOTED Blood monocytes/100 leukocyt eson 03-06-2022 Monocytes/100 WBC (Bld) 6.1 % 0-10 [facility] Work Phone: Blood platelet adequacy dete ction by light microscopyon 03-06-2022 Platelets LM Ql (Bld) ADEQUATE ADEQ [facility] Work Phone: Blood platelet mean volumeon 03-06-2022 Platelet mean volume (Bld) [Entitic vol] 10.3 fL 6.2-12.0 [facility] Work Phone: Determination of erythrocyte mean corpuscular volume (MCV)on 03-06-2022 MCV (RBC) [Entitic vol] 94.7 fL 81-99 [facility] Work Phone: Hematocrit Auto (Bld) [Volum e fraction]on 03-06-2022 Hematocrit (Bld) [Volume fraction] 39.3 % 37-47 [facility] Work Phone: Laboratory - Chemistry and C hemistry - challengeon 03-06-2022 ALP [Catalytic activity/Vol] 86 U/L 45-117 [facility] Work Phone: ALT [Catalytic activity/Vol] 11 U/L 13-56 [facility] Work Phone: CO2 [Moles/Vol] 31.0 mmol/L 21.0-32.0 [facility] Work Phone: Globulin (S) [Mass/Vol] 3.7 g/dL 2.2-4.2 [facility] Work Phone: Urea nitrogen/Creatinine [Mass ratio] 16.1 mg/mg 10-20 [facility] Work Phone: Laboratory - Hematology and Cell countson 03-06-2022 Erythrocyte distribution width (RBC) [Entitic vol] 47.7 fL 35.1-43.9 [facility] Work Phone: Erythrocyte distribution width (RBC) [Ratio] 13.6 % 11.6-14.6 [facility] Work Phone: [phone] Immature granulocytes/100 WBC (Bld) 0.300 % 0.0-0.9 [facility] Work Phone: [phone] Comment on above: IG% - Immature Granu locytes (promyelocytes, myelocytes and metamyelocytes) > 1% indicates that a LEFT SHIFT is Present. MCH (RBC) [Entitic mass] 30.6 pg 27.0-32.0 [facility] Work Phone: Nucleated RBC/100 WBC (Bld) [Ratio] 0 % 0-5 [facility] Work Phone: MCHC Auto (RBC) [Mass/Vol]on 03-06-2022 MCHC (RBC) [Mass/Vol] 32.3 g/dL 32-36 [facility] Work Phone: No Panel Informationon 03-06 Atypical Lymphocytes 1+ % [facility] Work Phone: Estimated GFR (MDRD) Amer 53 mL/min >60 [facility] Work Phone: Comment on above: GFR Calc Estimated GFR (MDRD) Non-Af Amer 44 mL/min >60 [facility] Work Phone: Comment on above: Non- GFR Calc Platelets bldon 03-06-2022 Platelets (Bld) [#/Vol] 338 10*3/uL 150-450 [facility] Work Phone: RBC morphologyon 03-06-2022 RBC morphology finding Nom (Bld) NORM C+C NORMAL NORM C&C [facility] Work Phone: Serum or plasma albumin fran urement (mass/volume)on 03-06-2022 Albumin [Mass/Vol] 3.6 g/dL 3.2-5.0 [facility] Work Phone: Serum or plasma albumin/glob ulin mass ratioon 03-06-2022 Albumin/Globulin [Mass ratio] 1.0 {ratio} 0.9-2.4 [facility] Work Phone: Serum or plasma calcium fran urement (mass/volume)on 03-06-2022 Calcium [Mass/Vol] 9.7 mg/dL 8.5-10.1 [facility] Work Phone: Serum or plasma creatinine m easurement (mass/volume)on 03-06-2022 Creatinine [Mass/Vol] 1.24 mg/dL 0.55-1.[address] [facility] Work Phone: Comment on above: The validity of the calculated GFR & GFRAA in patients over 70 years has not been determined. Clinical correlation is essential. Serum or plasma urea nitroge n measurement (mass/volume)on 03-06-2022 Urea nitrogen [Mass/Vol] 20 mg/dL 7-18 [facility] Work Phone: Thin prep Papanicolaou smear with manual screeningon 03-06-2022 Thin prep Papanicolaou smear with manual screening 31 U/L 15-37 [facility] Work Phone: Thin prep Papanicolaou smear with manual screening 6 5-15 [facility] Work Phone: No Panel Informationon 12-22 Miscellaneous Test See comment [facility] Work Phone: Comment on above: Sent directly to [facility] facility per ordering physician. Absolute lymphocyte counton 11-21-2021 Lymphocytes Auto (Unsp spec) [#/Vol] 10.68 10*3/uL 0.83-4.51 [facility] Work Phone: Basophil percentageon 2021 Basophils/100 WBC (Bld) 2.7 % 0-1 [facility] Work Phone: Bilirubin [Mass/Vol] 0.40 mg/dL 0.20-1.00 [facility] Work Phone: Comment on above: For patients on eltr ombopag therapy, use of Dimension [place] TBIL is not recommended. Chloride [Moles/Vol] 104 mmol[facility]L 98-107 [facility]: Eosinophils/100 WBC (Bld) 2.6 % 0-5 [facility] Work Phone: Glucose [Mass/Vol] 97 mg/dL 74-106 [facility] Work Phone: Neutrophils (Bld) [#/Vol] 5.6 10*3/uL 2.0-7.7 [facility] Work Phone: Neutrophils/100 WBC (Bld) 29.6 % 47-70 [facility] Work Phone: Potassium [Moles/Vol] 4.1 mmol/L 3.5-5.1 [facility] Work Phone: Protein [Mass/Vol] 7.1 g/dL 6.4-8.2 [facility] Work Phone: Sodium [Moles/Vol] 136 mmol/L 136-145 [facility] Work Phone: WBC (Bld) [#/Vol] 19.0 10*3/uL 4.4-11.0 [facility] Work Phone: Blood erythrocytes count (nu mber/volume)on 11-21-2021 RBC (Bld) [#/Vol] 4.03 10*6/uL 4.2-5.4 [facility] Work Phone: Blood hemoglobin measurement (mass/volume)on 11-21-2021 Hemoglobin (Bld) [Mass/Vol] 12.0 g/dL 12.0-15.0 [facility] Work Phone: [phone] Blood lymphocytes/100 leukoc yteson 11-21-2021 Lymphocytes/100 WBC (Bld) 56.3 % 19-41 [facility] Work Phone: Blood manual differential co mment interpretation (narrative result)on 11-21-2021 Manual differential comment Porter (Bld) [Interp] SEE COMMENTS [facility] Work Phone: Comment on above: LYMPHOCYTOSIS NOTEDM ONOCYTOSIS NOTED Blood monocytes/100 leukocyt eson 11-21-2021 Monocytes/100 WBC (Bld) 8.5 % 0-10 [facility] Work Phone: Blood platelet adequacy dete ction by light microscopyon 11-21-2021 Platelets LM Ql (Bld) ADEQUATE ADEQ [facility] Work Phone: Blood platelet mean volumeon 11-21-2021 Platelet mean volume (Bld) [Entitic vol] 10.7 fL 6.2-12.0 [facility] Work Phone: Determination of erythrocyte mean corpuscular volume (MCV)on 11-21-2021 MCV (RBC) [Entitic vol] 92.6 fL 81-99 [facility] Work Phone: Hematocrit Auto (Bld) [Volum e fraction]on 11-21-2021 Hematocrit (Bld) [Volume fraction] 37.3 % 37-47 [facility] Work Phone: Laboratory - Chemistry and C hemistry - challengeon 11-21-2021 ALP [Catalytic activity/Vol] 136 U/L 45-117 [facility] Work Phone: ALT [Catalytic activity/Vol] 10 U/L 13-56 [facility] Work Phone: CO2 [Moles/Vol] 28.0 mmol/L 21.0-32.0 [facility] Work Phone: Globulin (S) [Mass/Vol] 3.6 g/dL 2.2-4.2 [facility] Work Phone: [phone] Urea nitrogen/Creatinine [Mass ratio] 21.5 mg/mg 10-20 [facility] Work Phone: Laboratory - Hematology and Cell countson 11-21-2021 Anisocytosis Ql (Bld) RARE [facility] Work Phone: Erythrocyte distribution width (RBC) [Entitic vol] 46.7 fL 35.1-43.9 [facility] Work Phone: Erythrocyte distribution width (RBC) [Ratio] 13.7 % 11.6-14.6 [facility] Work Phone: Immature granulocytes/100 WBC (Bld) 0.300 % 0.0-0.9 [facility] Work Phone: Comment on above: IG% - Immature Granu locytes (promyelocytes, myelocytes and metamyelocytes) > 1% indicates that a LEFT SHIFT is Present. MCH (RBC) [Entitic mass] 29.8 pg 27.0-32.0 [facility] Work Phone: Nucleated RBC/100 WBC (Bld) [Ratio] 0 % 0-5 [facility] Work Phone: MCHC Auto (RBC) [Mass/Vol]on 11-21-2021 MCHC (RBC) [Mass/Vol] 32.2 g/dL 32-36 [facility] Work Phone: Macrocytes detectionon 11-21 Macrocytes Ql (Bld) RARE [facility] Work Phone: No Panel Informationon 11-21 Atypical Lymphocytes 1+ % [facility] Work Phone: Estimated GFR (MDRD) Amer 54 mL/min >60 [facility] Work Phone: Comment on above: GFR Calc Estimated GFR (MDRD) Non-Af Amer 45 mL/min >60 [facility] Work Phone: Comment on above: Non- GFR Calc Thyroid Stimulating Hormone (TSH) 1.52 uIU/mL 0.358-3.74 [facility] Work Phone: Vitamin D 25-Hydroxy 62.6 ng/mL [facility] Work Phone: Comment on above: Vitamin D 25(OH) Sta tus Range Deficiency <20 ng/mL (50nmol/L) Insufficiency 20 - 30 ng/mL (50 - 75 nmol/L) Sufficiency 30 - 100 ng/mL (75 - 250 nmol/L) Toxicity >100 ng/mL (>250 nmol/L) Platelets bldon 11-21-2021 Platelets (Bld) [#/Vol] 267 10*3/uL 150-450 [facility] Work Phone: RBC morphologyon 11-21-2021 RBC morphology finding Nom (Bld) N CHROM NORMAL NORM C&C [facility] Work Phone: Review by pathologiston Pathologist review Porter (Unsp spec) [Interp] Reviewed [facility] Work Phone: Comment on above: Previous reported re sult: Heide mckenna Edited by: BINA on 11/22/21:1313Leukocytosis and absolute lymphocytosis.Clinical correlation necessary.Nilton Flaherty M.D. 11/22/21 AMENDED REPORT 11/22/21 1313 PATH REV previously reported as: Heide mckenna Serum or plasma albumin fran urement (mass/volume)on 11-21-2021 Albumin [Mass/Vol] 3.5 g/dL 3.2-5.0 [facility] Work Phone: Serum or plasma albumin/glob ulin mass ratioon 11-21-2021 Albumin/Globulin [Mass ratio] 1.0 {ratio} 0.9-2.4 [facility] Work Phone: Serum or plasma calcium fran urement (mass/volume)on 11-21-2021 Calcium [Mass/Vol] 8.8 mg/dL 8.5-10.1 [facility] Work Phone: Serum or plasma creatinine m easurement (mass/volume)on 11-21-2021 Creatinine [Mass/Vol] 1.21 mg[facility] Comment on above: The validity of the calculated GFR & GFRAA in patients over 70 years has not been determined. Clinical correlation is essential. Serum or plasma urea nitroge n measurement (mass/volume)on 11-21-2021 Urea nitrogen [Mass/Vol] 26 mg/dL 7-18 [facility] Work Phone: Thin prep Papanicolaou smear with manual screeningon 11-21-2021 Thin prep Papanicolaou smear with manual screening 34 U/L 15-37 [facility] Work Phone: Thin prep Papanicolaou smear with manual screening 4 5-15 [facility] Work Phone: PROGRESSon 05-31-2020 PROGRESS HNO ID: [id number] Author: Sridevi Solo Service: ? Author Type: [...] this time was used for counseling. Normal [facility] Basic Metabolic Panelon 12-0 Calcium [Mass/Vol] 9.4 mg/dL Normal 8.4-10.4 [facility] Comment on above: Performed By: #### B MP3, HEMOG #### [address] Anion gap [Moles/Vol] 7 Normal [facility] Comment on above: Performed By: #### Ann MP3, HEMOG #### [address] [address] [place], [place] CO2 [Moles/Vol] 28 mmol/L Normal 22-30 [facility] Comment on above: Performed By: #### Ann MP3, HEMOG #### [address] Creatinine [Mass/Vol] 0.91 mg/dL Normal 0.52-1.25 [facility] Comment on above: Performed By: #### B MP3, HEMOG #### [address] [place] [address] GFR/1.73 sq M predicted among blacks MDRD (S/P/Bld) [Vol rate/Area] mL/min/{1.73_m2} Normal >60 [facility] Comment on above: Performed By: #### B MP3, HEMOG #### [address] [address] [place] [address] GFR/1.73 sq M predicted among non-blacks MDRD (S/P/Bld) [Vol rate/Area] 59.0 mL/min/{1.73_m2} Normal >60 [facility] Comment on above: Result Comment: Sour ce- MDRD equation with creatinine calibration to IDMS(NKDEP) eGFR not recommended for drug dose adjustment Performed By: #### B MP3, HEMOG #### [address] [address] [address] [place], [place] Glucose [Mass/Vol] 90 mg/dL Normal 70-100 [facility] Comment on above: Performed By: #### Ann MP3, HEMOG #### [address] [address] [place], [place] Urea nitrogen [Mass/Vol] 20 mg/dL Normal 7-20 [facility] Comment on above: Performed By: #### B MP3, HEMOG #### [address] [address] [place], [place] Chloride [Moles/Vol] 102 mmol/L Normal 98-107 [facility] Comment on above: Performed By: #### B MP3, HEMOG #### [address] [address] [place], [place] Potassium [Moles/Vol] 4.5 mmol/L Normal 3.5-5.1 [facility] Comment on above: Performed By: #### B MP3, HEMOG #### [address] [address] [address], [place] Sodium [Moles/Vol] 138 mmol/L Normal 135-145 [facility] Comment on above: Performed By: #### B MP3, HEMOG #### [address] [address] [place] [address] Anion gap [Moles/Vol] 7 mmol/L [place], [place] Calcium [Mass/Vol] 9.4 mg/dL 8.4 - 10. 4 mg/dL [place], [place] Chloride [Moles/Vol] 102 mmol/L 98 - 10 7 mmol/L [place] CO2 [Moles/Vol] 28 mmol/L 22 - 30 mmol/L [place] Creatinine [Mass/Vol] 0.91 mg/dL 0.52 - 1.25 mg/dL [place] EGFR IF NonAfrican [place] 59.0 mL/min >60 [place] Comment on above: Source- MDRD equatio n with creatinine calibration to IDMS(NKDEP) eGFR not recommended for drug dose adjustment GFR/1.73 sq M predicted among blacks MDRD (S/P/Bld) [Vol rate/Area] mL/min/{1.73_m2} >60 mL/min [place] Glucose [Mass/Vol] 90 mg/dL 70 - 100 mg/dL [place] Potassium [Moles/Vol] 4.5 mmol/L 3.5 - 5.1 mmol/L [place] Sodium [Moles/Vol] 138 mmol/L 135 - 145 mmol/L [place] Urea nitrogen [Mass/Vol] 20 mg/dL 7 - 20 mg/dL [place] Test Performed by [facility], [address] [place] [address] [place], [place] CBCon 2019 Erythrocyte distribution width (RBC) [Ratio] 13.6 % 11.5 - 14.5 % [place] Hematocrit (Bld) [Volume fraction] 38.4 % 35 - 47 % [place] Hemoglobin (Bld) [Mass/Vol] 12.7 g/dL 11.7 - 16 g/dL [place] Interpretation and review of laboratory results Abnormal [place] MCH (RBC) [Entitic mass] 30.1 pg 26 - 34 pg [place] MCHC (RBC) [Mass/Vol] 33.0 % 32 - 36 % [place] MCV (RBC) [Entitic vol] 91.1 fL 79 - 98 fL [place], [place] Platelet mean volume (Bld) [Entitic vol] 8.0 fL 7.4 - 10.4 fL [place] Platelets (Bld) [#/Vol] 326 10*3/uL 140 - 440 10*3/uL [place] RBC (Bld) [#/Vol] 4.21 10*6/uL 3.8 - 5.2 10*6/uL [place] WBC (Bld) [#/Vol] 11.1 10*3/uL High 3.6 - 10.7 10*3/uL [place] Test Performed by [facility], [address] [place] [address] [place] Hemogramon 2019 Erythrocyte distribution width (RBC) [Ratio] 13.6 % Normal 11.5-14.5 [facility] Comment on above: Performed By: #### B MP3, HEMOG #### [address] [address] Hematocrit (Bld) [Volume fraction] 38.4 % Normal 35.0-47.0 [facility] Comment on above: Performed By: #### B MP3, HEMOG #### [address] [address] [place] [address] Hemoglobin (Bld) [Mass/Vol] 12.7 g/dL Normal 11.7-16.0 [facility] Comment on above: Performed By: #### B MP3, HEMOG #### [address] [address] [place] [address] MCH (RBC) [Entitic mass] 30.1 pg Normal 26.0-34.0 [facility] Comment on above: Performed By: #### B MP3, HEMOG #### [address] [address] [place] [address] MCHC (RBC) [Mass/Vol] 33.0 % Normal 32.0-36.0 [facility] Comment on above: Performed By: #### B MP3, HEMOG #### [facility] [address] [place], [place] MCV (RBC) [Entitic vol] 91.1 fL Normal 79.0-98.0 [facility] Comment on above: Performed By: #### B MP3, HEMOG #### [facility] [address] [place], [place] Platelet mean volume (Bld) [Entitic vol] 8.0 fL Normal 7.4-10.4 [facility] Comment on above: Performed By: #### B MP3, HEMOG #### [facility] [address] [place], [place] Platelets (Bld) [#/Vol] 326 10*3/uL Normal 140-440 [facility] Comment on above: Performed By: #### B MP3, HEMOG #### [facility] [address] [place], [place] RBC (Bld) [#/Vol] 4.21 10*6/uL Normal 3.80-5.20 [facility] Comment on above: Performed By: #### B MP3, HEMOG #### [facility] [address] [place], [place] WBC (Bld) [#/Vol] 11.1 10*3/uL High 3.6-10.7 [facility] Comment on above: Performed By: #### B MP3, HEMOG #### [facility] [address] [place], [place] Replaced Document: Aliya Downingon 05-07-2017 EKG QRS axis 77 deg Invalid Interpretation Code [facility] Work Phone: [phone] Interpretation Sinus Bradycardia Lo w voltage with rightward P-axis and rotation -possible pulmonary disease. ABNORMAL Invalid Interpretation Code [facility] Work Phone: [phone] P Notrees 68 deg Invalid Interpretation Code [facility] Work Phone: [phone] MO Interval 206 ms Invalid Interpretation Code [facility] Work Phone: [phone] Pulse (Heart Rate) 53 /min Invalid Interpretation Code [facility] Work Phone: [phone] QRS Duration 100 ms Invalid Interpretation Code [facility] Phone: [phone] QT Interval new path ms Invalid Interpretation Code [facility] Phone: [phone] QTc Iglesias 392 ms Invalid Interpretation Code [facility] Phone: [phone] T Notrees 20 deg Invalid Interpretation Code [facility] Phone: [phone] Office Visiton 01-08-2017 Documentation of current medications (procedure) Done Invalid Interpretation Code [facility] Phone: [phone] 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 Left ventricular Ejection fraction 55 % Invalid Interpretation Code [facility] Phone: [phone] Lab Report: Basic Metabolic Profile (BMP)on 06-28-2016 Anion gap 6 mmol/L Invalid Interpretation Code 5-15 [facility] Phone: [phone] BUN/Creatinine Ratio 16.7 RATIO Invalid Interpretation Code 10-20 [facility] Phone: [phone] Calcium 8.6 mg/dL Invalid Interpretation Code 8.5-10.1 [facility] Phone: [phone] Chloride 106 mmol/L Invalid Interpretation Code 98-107 [facility] Phone: [phone] CO2 29.0 mmol/L Invalid Interpretation Code 21.0-32.0 [facility] Phone: [phone] Creatinine 1.02 mg/dL Invalid Interpretation Code 0.55-1.02 [facility] Work Phone: [phone] eGFR (non-black) 67 mL/min/{1.73_m2} Invalid Interpretation Code >60 [facility] Phone: [phone] eGFR (non-black) 55 mL/min/{1.73_m2} Low >60 [facility] Work Phone: [phone] Glucose mass conc 85 mg/dL Invalid Interpretation Code 70-110 [facility] Phone: [phone] Potassium molar conc 4.0 mmol/L Invalid Interpretation Code 3.5-5.1 [facility] Work Phone: [phone] Sodium 141 mmol/L Invalid Interpretation Code 136-145 [facility] Work Phone: [phone] Urea nitrogen 17 mg/dL Invalid Interpretation Code 7-18 [facility] Work Phone: [phone] Lab Report: CBC W/Diff, Auto matedon 06-28-2016 Absolute Neut 3.7 X10 3/UL Invalid Interpretation Code 2.0-7.7 [facility] Work Phone: [phone] Basophils/100 WBC Auto (Bld) 3.1 % High 0-1 [facility] Work Phone: [phone] Eosinophils/100 leukocytes 2.3 % Invalid Interpretation Code 0-5 [facility] Work Phone: [phone] Erythrocyte distribution width Auto Ratio (RBC) 13.4 % Invalid Interpretation Code 11.6-14.6 [facility] Work Phone: [phone] Erythrocytes (RBC) 4.40 10*6/uL Invalid Interpretation Code 4.2-5.4 [facility] Work Phone: [phone] Hematocrit (HCT) 40.9 % Invalid Interpretation Code 37-47 [facility] Work Phone: [phone] Hemoglobin mass conc (Bld) 13.2 g/dL Invalid Interpretation Code 12.0-15.0 [facility] Work Phone: [phone] Immature granulocytes/100 WBC (Bld) 0.200 % Invalid Interpretation Code 0.0-0.9 [facility] Work Phone: [phone] Lymphocytes 4.65 X10 3/UL High 0.83-4.51 [facility] Work Phone: [phone] Lymphocytes/100 leukocytes 47.3 % High 19-41 [facility] Work Phone: [phone] MCH 30.0 pg Invalid Interpretation Code 27.0-32.0 [facility] Work Phone: [phone] MCHC mass conc (RBC) 32.3 G/GL Invalid Interpretation Code 32-36 [facility] Work Phone: [phone] MCV 93.0 fL Invalid Interpretation Code 81-99 [facility] Work Phone: Monocytes/100 leukocytes 9.9 % Invalid Interpretation Code 0-10 [facility] Work Phone: [phone] Neutrophils/100 WBC Auto (Bld) 37.2 % Low 47-70 [facility] Work Phone: [phone] Platelets 357 10*3/mm3 Invalid Interpretation Code 150-450 [facility] Work Phone: [phone] PMV by Evelio 9.8 fL Invalid Interpretation Code 6.2-12.0 [facility] Work Phone: [phone] RDW SD 45.2 fL High 35.1-43.9 [facility] Work Phone: [phone] WBC (Leukocytes) 9.8 10*3/uL Invalid Interpretation Code 4.4-11.0 [facility] Work Phone: [phone] Lab Report: Lipid Profileon 06-28-2016 Cholesterol 160 mg/dL Invalid Interpretation Code 200 [facility] Work Phone: [phone] HDL Cholesterol 69 mg/dL Invalid Interpretation Code [facility] Work Phone: [phone] LDL Cholesterol 67 mg/dL Invalid Interpretation Code 0-130 [facility] Work Phone: [phone] Triglyceride 119 mg/dL Invalid Interpretation Code [facility] Work Phone: [phone] very low density lipoproteins 24 mg/dL Invalid Interpretation Code 5-40 [facility] Work Phone: [phone] Lab Report: Liver Profileon 06-28-2016 Alanine aminotransferase (ALT) U/L Low 12-78 [facility] Work Phone: [phone] Albumin 3.3 g/dL Low 3.4-5.0 [facility] Work Phone: [phone] Alkaline phosphatase (ALP) 80 U/L Invalid Interpretation Code 45-117 [facility] Work Phone: [phone] Aspartate aminotransferase (AST) 25 U/L Invalid Interpretation Code 15-37 [facility] Phone: [phone] Bilirubin (direct) 0.14 mg/dL Invalid Interpretation Code 0.00-0.30 [facility] Work Phone: [phone] Bilirubin (total) 0.60 mg/dL Invalid Interpretation Code 0.20-1.00 [facility] Work Phone: [phone] Globulin 3.5 g/dL Invalid Interpretation Code 2.3-3.5 [facility] Work Phone: [phone] Protein 6.8 g/dL Invalid Interpretation Code 6.4-8.2 [facility] Work Phone: [phone] Lab Report: Magnesiumon 06-18 Magnesium 2.1 mg/dL Invalid Interpretation Code 1.8-2.4 [facility] Work Phone: [phone] Office Visiton 01-03-2016 Tobacco use CPHS Never smoker Invalid Interpretation Code [facility] Work Phone: [phone] Office Visit: MMMon 06-25-19 16 General cardiovascular disease 10Y risk [#] [place] 11 % Invalid Interpretation Code [facility] Phone: [phone] External Other: [employer]od of Contacton 11-23-2014 methcontact secmsg Invalid Interpretation Code [facility] Work Phone: [phone] Replaced Document: Aliya E CG Observationson 11-23-2014 EKG QRS axis 67 deg Invalid Interpretation Code [facility] Phone: [phone] Interpretation Sinus Bradycardia Lo w voltage with rightward P-axis and rotation -possible pulmonary disease. ABNORMAL Invalid Interpretation Code [facility] Phone: [phone] P Notrees 70 deg Invalid Interpretation Code [facility] Work Phone: [phone] MO Interval 152 ms Invalid Interpretation Code [facility] Work Phone: [phone] Pulse (Heart Rate) 51 /min Invalid Interpretation Code [facility] Work Phone: [phone] QRS Duration 100 ms Invalid Interpretation Code [facility] Work Phone: [phone] QT Interval new path ms Invalid Interpretation Code [facility] Work Phone: [phone] QTc Iglesias 403 ms Invalid Interpretation Code [facility] Work Phone: [phone] T Notrees -1 deg Invalid Interpretation Code [facility] Work Phone: [phone] Lab Report: Vitamin D,25 Hyd roxyon 10-07-2014 Vitamin D 25-OH 42.1 ng/mL Invalid Interpretation Code [facility] Work Phone: [phone] Lab Report: (P) CBC W/Diff, Automatedon 10-06-2014 Absolute Neut 2.4 X10 3/UL Invalid Interpretation Code 2.0-7.7 [facility] Work Phone: [phone] Lymphocytes 5.60 X10 3/UL High 0.83-4.51 [facility] Work Phone: [phone] Lab Report: Thyroid Stim Hor sean (TSH)on 10-06-2014 Thyroid stimulating hormone (TSH) 3.86 u[iU]/mL High 0.358-3.74 [facility] Work Phone: [phone] Office Visit: [facility] 05-26-20 14 cardiac risk group B Invalid Interpretation Code [facility] Work Phone: [phone] Lab Report: B12on 10-20-2013 Cobalamins (Vitamin B12) 795 pg/mL Normal 211-911 [facility] Work Phone: [phone] Lab Report: CMPon 10-20-2013 Albumin/Globulin Ratio 0.9 {ratio} Normal 0.9-2.4 [facility] Work Phone: [phone] Replaced Document: Aliya Esteban CG Observationson 05-21-2013 Pulse (Heart Rate) 403 ms Invalid Interpretation Code [facility] Work Phone: [phone] Lab Report: METHYL - copyon 12-05-2012 METHYL 212 nmol/L Normal 73-376 [facility] Work Phone: [phone] Lab Report: TPO - copyon thyroid microsomal antibody < 6 Normal 0-34 [facility] Work Phone: [phone] Lab Report: CRPon 12-02-2012 C reactive protein (CRP) mg/L Normal 0.0-3.0 [facility] Work Phone: [phone] Lab Report: SEDon 12-02-2012 Erythrocyte sedimentation rate 13 mm/h Normal 0-30 [facility] Work Phone: [phone] Lab Report: URICon 3 Urate 3.7 mg/dL Normal 2.6-6.0 [facility] Work Phone: 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 [facility] Work Phone: Bacteria identified Cx Nom ( Wound) Wound Culture Staphylococcus epidermidis [facility] Work Phone: Wound Culture Staphylococcus homin is hominis [facility] Work Phone: Gram stain for investigation of transfusion reaction Microscopic observation Gram stain Nom (Unsp spec) [facility] Work Phone: No Panel Information Influenza Types A,B Direct FA (ARIANNA) [facility] Work Phone: RSV Ag EIA RSV Ag Immune stain Ql (Tiss) [facility] Work Phone: Vital Signs Date Time Vital Sign Value Performing Clinician Facility 10-20-2024 10:52-0400 Body mass index (BMI) [Ratio] 18.08 kg/m2 Selvin Felder MD Work Phone: [facility] 10-20-2024 10:52-0400 Body weight 43.4 kg Selvin Felder MD Work Phone: [facility] 10-20-2024 10:52-0400 SaO2% (BldA) [Mass fraction] 96 % Selvin Felder MD Work Phone: [facility] 04-21-2024 11:14-0500 Body mass index (BMI) [Ratio] 18.41 kg/m2 Selvin Felder MD Work Phone: [facility] 04-21-2024 11:14-0500 Body weight 44.2 kg Selvin Felder MD Work Phone: [facility] 04-21-2024 11:14-0500 SaO2% (BldA) [Mass fraction] 96 % Selvin Felder MD Work Phone: [facility] 10-18-2023 09:38-0400 Body height 154.9 cm Selvin Felder MD Work Phone: [facility] 10-18-2023 09:38-0400 Body mass index (BMI) [Ratio] 18.2 kg/m2 Selvin Felder MD Work Phone: [facility] 10-18-2023 09:38-0400 Body weight 43.7 kg Selvin Felder MD Work Phone: [facility] 10-18-2023 09:38-0400 SaO2% (BldA) [Mass fraction] 95 % Selvin Felder MD Work Phone: [facility] 10-04-2023 08:57-0400 Heart rate 66 /min Dr. Howard Zimmerman Work Phone: [facility] 10-04-2023 08:54-0400 Diastolic blood pressure 48 mm[Hg] Dr. Howard Zimmerman Work Phone: [facility] 10-04-2023 08:54-0400 Systolic blood pressure 93 mm[Hg] Dr. Howard Zimmerman Work Phone: [facility] 10-04-2023 08:53-0400 Body temperature 97.5 [degF] Dr. Howard Zimmerman Work Phone: [facility] 10-04-2023 08:53-0400 Respiratory rate 16 /min Dr. Howard Zimmerman Work Phone: [facility] 10-04-2023 08:53-0400 SaO2% (BldA) [Mass fraction] 92 % Dr. Howard Zimmerman Work Phone: [facility] 10-02-2023 11:34-0400 Body mass index (BMI) [Ratio] 18.8 kg/m2 Dr. Howard Zimmerman Work Phone: [facility] 10-02-2023 11:34-0400 Body weight 43.[address] Howard Zimmerman Work Phone: [facility] 09-26-2023 13:36-0400 Body height 152.[address] Howard Zimmerman Work Phone: [facility] 09-19-2023 14:32-0400 Body mass index (BMI) [Ratio] 18.3 kg/m2 Dr. Howard Zimmerman Work Phone: [facility] 09-19-2023 14:32-0400 Body weight 42.[address] Howard Zimmerman Work Phone: [facility] 09-19-2023 14:32-0400 Diastolic blood pressure 69 mm[Hg] Dr. Howard Zimmerman Work Phone: [facility] 09-19-2023 14:32-0400 Heart rate 76 /min Dr. Howard Zimmerman Work Phone: [facility] 09-19-2023 14:32-0400 Respiratory rate 18 /min Dr. Howard Zimmerman Work Phone: [facility] 09-19-2023 14:32-0400 SaO2% (BldA) [Mass fraction] 96 % Dr. Howard Zimmerman Work Phone: [facility] 09-19-2023 14:32-0400 Systolic blood pressure 122 mm[Hg] Dr. Howard Zimmerman Work Phone: [facility] 09-14-2023 14:22-0400 Body temperature 97.9 [degF] Dr. Howard Zimmerman Work Phone: [facility] 09-14-2023 14:22-0400 Diastolic blood pressure 88 mm[Hg] Dr. Howard Zimmerman Work Phone: [facility] 09-14-2023 14:22-0400 Heart rate 84 /min Dr. Howard Zimmerman Work Phone: [facility] 09-14-2023 14:22-0400 Respiratory rate 16 /min Dr. Howard Zimmerman Work Phone: [facility] 09-14-2023 14:22-0400 SaO2% (BldA) [Mass fraction] 97 % Dr. Howard Zimmerman Work Phone: [facility] 09-14-2023 14:22-0400 Systolic blood pressure 133 mm[Hg] Dr. Howard Zimmerman Work Phone: [facility] 09-09-2023 10:43-0400 Body height 152.[address] Howard Zimmerman Work Phone: [facility] 09-09-2023 10:43-0400 Body weight 39.[address] Howard Zimmerman Work Phone: [facility] 09-08-2023 14:45-0400 Body mass index (BMI) [Ratio] 17.2 kg/m2 Dr. Howard Zimmerman Work Phone: [facility] 09-08-2023 13:40-0400 Body temperature 98.4 [degF] Dr. Howard Zimmerman Work Phone: [facility] 09-08-2023 13:40-0400 Diastolic blood pressure 98 mm[Hg] Dr. Howard Zimmerman Work Phone: [facility] 09-08-2023 13:40-0400 Heart rate 83 /min Dr. Howard Zimmerman Work Phone: [facility] 09-08-2023 13:40-0400 Respiratory rate 12 /min Dr. Howard Zimmerman Work Phone: [facility] 09-08-2023 13:40-0400 SaO2% (BldA) [Mass fraction] 95 % Dr. Howard Zimmerman Work Phone: [facility] 09-08-2023 13:40-0400 Systolic blood pressure 146 mm[Hg] Dr. Howard Zimmerman Work Phone: [facility] 09-08-2023 09:36-0400 Body height 157.[address] Howard Zimmerman Work Phone: [facility] 09-08-2023 09:36-0400 Body mass index (BMI) [Ratio] 17.2 kg/m2 Dr. Howard Zimmerman Work Phone: [facility] 09-08-2023 09:36-0400 Body weight 42.[address] Howard Zimmerman Work Phone: [facility] 08-17-2023 10:49-0500 Body temperature 97.3 [degF] Bart Brooks DO Work Phone: [facility] 08-17-2023 10:49-0500 Body weight 43.09 kg Bart Jimenezi DO Work Phone: [facility] 08-17-2023 10:49-0500 Diastolic blood pressure 64 mm[Hg] Bart Jimenezi DO Work Phone: [facility] 08-17-2023 10:49-0500 Heart rate 92 /min Bart Jimenezi DO Work Phone: [facility] 08-17-2023 10:49-0500 SaO2% (BldA) [Mass fraction] 96 % Bart Todd DO Work Phone: [facility] 08-17-2023 10:49-0500 Systolic blood pressure 102 mm[Hg] Bart Barbarai DO Work Phone: [facility] 07-28-2023 16:08-0500 Diastolic blood pressure 89 mm[Hg] Dr. Howard Zimmerman Work Phone: [facility] 07-28-2023 16:08-0500 Heart rate 83 /min Dr. Howard Zimmerman Work Phone: [facility] 07-28-2023 16:08-0500 Respiratory rate 16 /min Dr. Howard Zimmerman Work Phone: [facility] 07-28-2023 16:08-0500 SaO2% (BldA) [Mass fraction] 96 % Dr. Howard Zimmerman Work Phone: [facility] 07-28-2023 16:08-0500 Systolic blood pressure 160 mm[Hg] Dr. Howard Zimmerman Work Phone: [facility] 07-28-2023 09:14-0500 Body height 157.[address] Howard Zimmerman Work Phone: [phone])110-105520 [place] [address] 07-28-2023 09:14-0500 Body mass index (BMI) [Ratio] 18.1 kg/m2 Dr. Howard iZmmerman Work Phone: [phone])959-502220 [place] [address] 07-28-2023 09:14-0500 Body temperature 97 [degF] Dr. Howard Zimmerman Work Phone: 1(878)831-535990 [place] [address] 07-28-2023 09:14-0500 Body weight [address] Howard Zimmerman Work Phone: 3(517)550-757790 [place] [address] 06-29-2023 15:18-0500 Body height 157.[address] Howard Zimmerman Work Phone: 7(498)905-743090 [place] [address] 06-29-2023 15:18-0500 Body weight 41.[address] Howard Zimmerman Work Phone: 6(981)508-839090 [place] [address] 06-29-2023 08:51-0500 SaO2% (BldA) [Mass fraction] 96 % Dr. Howard Zimmerman Work Phone: [phone])[phone] [place] [address] 06-29-2023 08:44-0500 Body temperature 98 [degF] Dr. Howard Zimmerman Work Phone: 9(099)716-459490 [place] [address] 06-29-2023 08:44-0500 Diastolic blood pressure 84 mm[Hg] Dr. Howard Zimmerman Work Phone: 0(504)466-258190 [place] [address] 06-29-2023 08:44-0500 Heart rate 71 /min Dr. Howard Zimmerman Work Phone: 0(509)394-385990 [place] [address] 06-29-2023 08:44-0500 Respiratory rate 14 /min Dr. Howard Zimmerman Work Phone: 5(611)287-818390 [place] [address] 06-29-2023 08:44-0500 Systolic blood pressure 113 mm[Hg] Dr. Howard Zimmerman Work Phone: 9(633)046-269590 [place] [address] 06-29-2023 05:42-0500 Body mass index (BMI) [Ratio] 16.6 kg/m2 Dr. Howard Zimmerman Work Phone: 9(837)573-186590 [place] [address] 06-28-2023 18:30-0500 Diastolic blood pressure 72 mm[Hg] Dr. Howard Zimmerman Work Phone: [facility] 06-28-2023 18:30-0500 Heart rate 99 /min Dr. Howard Zimmerman Work Phone: [facility] 06-28-2023 18:30-0500 Respiratory rate 18 /min Dr. Howard Zimmerman Work Phone: [facility] 06-28-2023 18:30-0500 Systolic blood pressure 116 mm[Hg] Dr. Howard Zimmerman Work Phone: [facility] 06-28-2023 16:00-0500 SaO2% (BldA) [Mass fraction] 95 % Dr. Howard Zimmerman Work Phone: [facility] 06-28-2023 12:17-0500 Body height 157.[address] Howard Zimmerman Work Phone: [facility] 06-28-2023 12:17-0500 Body mass index (BMI) [Ratio] 17 kg/m2 Dr. Howard Zimmerman Work Phone: [facility] 06-28-2023 12:17-0500 Body temperature 97.2 [degF] Dr. Howard Zimmerman Work Phone: [facility] 06-28-2023 12:17-0500 Body weight 42.[address] Howard Zimmerman Work Phone: [facility] 04-04-2023 13:20-0400 Body height 152.4 cm Selvin Felder MD Work Phone: [facility] 04-04-2023 13:20-0400 Body weight 44 kg Selvin Felder MD Work Phone: [facility] 04-04-2023 13:20-0400 SaO2% (BldA) [Mass fraction] 98 % Selvin Felder MD Work Phone: [facility] 02-13-2023 11:24-0400 Body height 156 cm Bart Brooks DO Work Phone: [facility] 02-13-2023 11:24-0400 Body temperature 97.5 [degF] Bart Brooks DO Work Phone: [facility] 02-13-2023 11:24-0400 Body weight 43.55 kg Bart Brooks DO Work Phone: [facility] 02-13-2023 11:24-0400 Diastolic blood pressure 81 mm[Hg] Bart Brooks DO Work Phone: [facility] 02-13-2023 11:24-0400 Heart rate 89 /min Bart Jimenezi DO Work Phone: [facility] 02-13-2023 11:24-0400 SaO2% (BldA) [Mass fraction] 97 % Bart Brooks DO Work Phone: [facility] 02-13-2023 11:24-0400 Systolic blood pressure 111 mm[Hg] Bart Todd LEON Work Phone: [facility] 01-16-2023 12:07-0400 Body temperature 97.8 [degF] Dr. Howard Zimmerman Work Phone: [facility] 01-16-2023 12:07-0400 Diastolic blood pressure 69 mm[Hg] Dr. Howard Zimmerman Work Phone: [facility] 01-16-2023 12:07-0400 Heart rate 70 /min Dr. Howard Zimmerman Work Phone: [facility] 01-16-2023 12:07-0400 Respiratory rate 16 /min Dr. Howard Zimmerman Work Phone: [facility] 01-16-2023 12:07-0400 SaO2% (BldA) [Mass fraction] 98 % Dr. Howard Zimmerman Work Phone: [facility] 01-16-2023 12:07-0400 Systolic blood pressure 111 mm[Hg] Dr. Howard Zimmerman Work Phone: [facility] 01-15-2023 16:37-0400 Body height 152.[address] Howard Zimmerman Work Phone: [facility] 01-15-2023 16:37-0400 Body weight 42.[address] Howard Zimmerman Work Phone: [facility] 01-15-2023 13:23-0400 Body mass index (BMI) [Ratio] 18.3 kg/m2 Dr. Howard Zimmerman Work Phone: [facility] 01-15-2023 12:30-0400 Inhaled oxygen flow rate 1 L/min Dr. Howard Zimmerman Work Phone: [facility] 01-05-2023 16:09-0400 Body mass index (BMI) [Ratio] 18.3 kg/m2 Dr. Howard Zimmerman Work Phone: [facility] 01-05-2023 16:09-0400 Body weight 43.[address] Howard Zimmerman Work Phone: [facility] 01-05-2023 16:09-0400 Diastolic blood pressure 86 mm[Hg] Dr. Howard Zimmerman Work Phone: [facility] 01-05-2023 16:09-0400 Heart rate 71 /min Dr. Howard Zimmerman Work Phone: [facility] 01-05-2023 16:09-0400 Respiratory rate 16 /min Dr. Howard Zimmerman Work Phone: [facility] 01-05-2023 16:09-0400 Systolic blood pressure 158 mm[Hg] Dr. Howard Zimmerman Work Phone: [facility] 08-15-2022 11:13-0500 Body height 156.2 cm Bart Brooks DO Work Phone: [facility] 08-15-2022 11:13-0500 Body temperature 97 [degF] Bart Brooks DO Work Phone: [facility] 08-15-2022 11:13-0500 Body weight 45.59 kg Bart Brooks DO Work Phone: [facility] 08-15-2022 11:13-0500 Diastolic blood pressure 76 mm[Hg] Bart Barbaragwyn Work Phone: [facility] 08-15-2022 11:13-0500 Heart rate 48 /min Bart Barbaragwyn LEON Work Phone: [facility] 08-15-2022 11:13-0500 Systolic blood pressure 120 mm[Hg] Bart Barbaragwyn LEON Work Phone: [facility] 07-19-2022 09:48-0500 Body mass index (BMI) [Ratio] 19.8 kg/m2 Dr. Howard Zimmerman Work Phone: [facility] 07-19-2022 09:48-0500 Body temperature 96.2 [degF] Dr. Howard Zimmerman Work Phone: [facility] 07-19-2022 09:48-0500 Respiratory rate 16 /min Dr. Howard Zimmerman Work Phone: [facility] 07-19-2022 00:37-0500 Body weight 47.[address] Howard Zimmerman Work Phone: [facility] 07-19-2022 00:37-0500 Diastolic blood pressure 37 mm[Hg] Dr. Howard Zimmerman Work Phone: [facility] 07-19-2022 00:37-0500 Heart rate 54 /min Dr. Howard Zimmerman Work Phone: [facility] 07-19-2022 00:37-0500 Systolic blood pressure 90 mm[Hg] Dr. Howard Zimmerman Work Phone: [facility] 07-05-2022 15:39-0500 Body height 156.8 cm Sridevi Solo MD Work Phone: [facility] 07-05-2022 15:39-0500 Body weight 46.27 kg Sridevi Solo MD Work Phone: [facility] 07-05-2022 15:39-0500 Diastolic blood pressure 68 mm[Hg] Sridevi Solo MD Work Phone: [facility] 07-05-2022 15:39-0500 Heart rate 73 /min Sridevi Solo MD Work Phone: [facility] 07-05-2022 15:39-0500 SaO2% (BldA) [Mass fraction] 95 % Sridevi Sloo MD Work Phone: [facility] 07-05-2022 15:39-0500 Systolic blood pressure 138 mm[Hg] Sridevi Solo MD Work Phone: [facility] 07-05-2022 09:40-0500 Body mass index (BMI) [Ratio] 19.8 kg/m2 Dr. Howard Zimmerman Work Phone: [facility] 07-05-2022 09:40-0500 Body temperature 96.4 [degF] Dr. Howard Zimmerman Work Phone: [facility] 07-05-2022 09:40-0500 Diastolic blood pressure 37 mm[Hg] Dr. Howard Zimmerman Work Phone: [facility] 07-05-2022 09:40-0500 Heart rate 54 /min Dr. Howard Zimmerman Work Phone: [facility] 07-05-2022 09:40-0500 Systolic blood pressure 90 mm[Hg] Dr. Howard Zimmerman Work Phone: [facility] 06-23-2022 09:32-0500 Respiratory rate 16 /min Dr. Howard Zimmerman Work Phone: [facility] 06-18-2022 00:39-0500 Body weight 47.[address] Howard Zimmerman Work Phone: [facility] 06-14-2022 09:17-0500 Body mass index (BMI) [Ratio] 19.8 kg/m2 Dr. Howard Zimmerman Work Phone: [facility] 06-14-2022 09:17-0500 Body temperature 97.3 [degF] Dr. Howard Zimmerman Work Phone: [facility] 06-14-2022 09:17-0500 Diastolic blood pressure 66 mm[Hg] Dr. Howard Zimmerman Work Phone: [facility] 06-14-2022 09:17-0500 Heart rate 77 /min Dr. Howard Zimmerman Work Phone: [facility] 06-14-2022 09:17-0500 Systolic blood pressure 108 mm[Hg] Dr. Howard Zimmerman Work Phone: [facility] 06-07-2022 09:16-0500 Body height 154.[address] Howard Zimmerman Work Phone: [facility] 06-07-2022 09:16-0500 Body weight 47.[address] Howard Zimmerman Work Phone: 2(275)598-277120 [place] [address] 06-07-2022 09:16-0500 Respiratory rate 16 /min Dr. Howard Zimmerman Work Phone: 9(568)520-467720 [place] [address] 05-12-2022 10:42-0500 Body height 154.[address] Howard Zimmerman Work Phone: [facility] Work Phone: 05-12-2022 10:42-0500 Body mass index (BMI) [Ratio] 18.8 kg/m2 Dr. Howard Zimmerman Work Phone: 8(621)347-226320 [place] [address] 05-12-2022 10:42-0500 Body temperature 97.4 [degF] Dr. Howard Zimmerman Work Phone: [facility] 05-12-2022 10:42-0500 Body weight 45.[address] Howard Zimmerman Work Phone: [facility] 05-12-2022 10:42-0500 Diastolic blood pressure 66 mm[Hg] Dr. Howard Zimmerman Work Phone: [facility] 05-12-2022 10:42-0500 Heart rate 81 /min Dr. Howard Zimmerman Work Phone: [facility] 05-12-2022 10:42-0500 Respiratory rate 16 /min Dr. Howard Zimmerman Work Phone: 7(638)787-151920 [place] [address] 05-12-2022 10:42-0500 SaO2% (BldA) [Mass fraction] 99 % Dr. Howard Zimmerman Work Phone: [facility] 05-12-2022 10:42-0500 Systolic blood pressure 104 mm[Hg] Dr. Howard Zimmerman Work Phone: [facility] 04-14-2022 12:25-0400 Body height 154.[address] Howard Zimmerman Work Phone: 4(439)205-860620 [place] [address] Work Phone: 04-14-2022 12:25-0400 Body mass index (BMI) [Ratio] 19 kg/m2 Dr. Howard Zimmerman Work Phone: 8(359)828-049420 [place] [address] 04-14-2022 12:25-0400 Body temperature 96.3 [degF] Dr. Howard Zimmerman Work Phone: 2(151)825-692620 [place] [address] 04-14-2022 12:25-0400 Body weight 45.[address] Howard Zimmerman Work Phone: 9(885)208-240604 [address] 04-14-2022 12:25-0400 Diastolic blood pressure 103 mm[Hg] Dr. Howard Zimmerman Work Phone: 3(252)795-075504 [address] 04-14-2022 12:25-0400 Heart rate 94 /min Dr. Howard Zimmerman Work Phone: 5(463)097-784920 [place] [address] 04-14-2022 12:25-0400 Respiratory rate 18 /min Dr. Howard Zimmerman Work Phone: 4(654)646-945320 [place] [address] 04-14-2022 12:25-0400 SaO2% (BldA) [Mass fraction] 98 % Dr. Howard Zimmerman Work Phone: 1(828)199-156920 [place] [address] 04-14-2022 12:25-0400 Systolic blood pressure 149 mm[Hg] Dr. Howard Zimmerman Work Phone: 6(211)053-648520 [place] [address] 03-30-2022 10:30-0400 Body temperature 98.2 [degF] Dr. Howard Zimmerman Work Phone: 0(184)042-313420 [place] [address] 03-30-2022 10:30-0400 Diastolic blood pressure 64 mm[Hg] Dr. Howard Zimmerman Work Phone: [facility] 03-30-2022 10:30-0400 Heart rate 83 /min Dr. Howard Zimmerman Work Phone: [facility] 03-30-2022 10:30-0400 Respiratory rate 14 /min Dr. Howard Zimmerman Work Phone: [facility] 03-30-2022 10:30-0400 SaO2% (BldA) [Mass fraction] 97 % Dr. Howard Zimmerman Work Phone: [facility] 03-30-2022 10:30-0400 Systolic blood pressure 112 mm[Hg] Dr. Howard Zimmerman Work Phone: [facility] 02-14-2022 11:51-0400 Body height 156.8 cm Bart Barbarai DO Work Phone: [facility] 02-14-2022 11:51-0400 Body temperature 97 [degF] Bart Masci DO Work Phone: [facility] 02-14-2022 11:51-0400 Body weight 46.27 kg Bart Masci DO Work Phone: [facility] 02-14-2022 11:51-0400 Diastolic blood pressure 90 mm[Hg] Bart Masci DO Work Phone: [facility] 02-14-2022 11:51-0400 Heart rate 67 /min Bart Masci DO Work Phone: [facility] 02-14-2022 11:51-0400 Systolic blood pressure 147 mm[Hg] Bart Masci DO Work Phone: [facility] 11-23-2021 13:17-0400 Body height 157.[address] Howard Zimmerman Work Phone: [facility] Work Phone: 11-23-2021 13:17-0400 Body weight 49.[address] Howard Zimmerman Work Phone: [facility] Work Phone: 11-23-2021 13:17-0400 Diastolic blood pressure 68 mm[Hg] Dr. Howard Zimmerman Work Phone: [facility] Work Phone: 11-23-2021 13:17-0400 Heart rate 64 /min Dr. Howard Zimmerman Work Phone: [facility] Work Phone: 11-23-2021 13:17-0400 Respiratory rate 18 /min Dr. Howard Zimmerman Work Phone: [facility] Work Phone: 11-23-2021 13:17-0400 Systolic blood pressure 140 mm[Hg] Dr. Howard Zimmerman Work Phone: [facility] Work Phone: 11-23-2021 13:17-0400 Body height 157.[address] Howard Zimmerman Work Phone: [facility] Work Phone: 11-23-2021 13:17-0400 Body weight 49.[address] Howard Zimmerman Work Phone: [facility] Work Phone: 11-23-2021 13:17-0400 Diastolic blood pressure 68 mm[Hg] Dr. Howard Zimmerman Work Phone: [facility] Work Phone: 11-23-2021 13:17-0400 Heart rate 64 /min Dr. Howard Zimmerman Work Phone: [facility] Work Phone: 11-23-2021 13:17-0400 Respiratory rate 18 /min Dr. Howard Zimmerman Work Phone: [facility] Work Phone: 11-23-2021 13:17-0400 Systolic blood pressure 140 mm[Hg] Dr. Howard Zimmerman Work Phone: [facility] Work Phone: 09-19-2021 14:33-0400 Body height 158 cm Sridevi Solo MD Work Phone: [facility] 09-19-2021 14:33-0400 Body weight 48.53 kg Sridevi Solo MD Work Phone: [facility] 09-19-2021 14:33-0400 Diastolic blood pressure 70 mm[Hg] Sridevi Solo MD Work Phone: [facility] 09-19-2021 14:33-0400 Heart rate 86 /min Sridevi Solo MD Work Phone: [facility] 09-19-2021 14:33-0400 SaO2% (BldA) [Mass fraction] 97 % Sridevi Solo MD Work Phone: [facility] 09-19-2021 14:33-0400 Systolic blood pressure 142 mm[Hg] Sridevi Solo MD Work Phone: [facility] 11-22-2020 13:01-0400 Body mass index (BMI) [Ratio] 19.3 kg/m2 Dr. Howard Zimmerman Work Phone: [facility] Work Phone: 11-22-2020 13:01-0400 Body mass index (BMI) [Ratio] 19.3 kg/m2 Dr. Howard Zimmerman Work Phone: [facility] Work Phone: 05-27-2019 09:30-0500 Body temperature 97.81 [degF] [facility] Work Phone: 05-27-2019 09:30-0500 Diastolic blood pressure 78 mm[Hg] Brandon Faye MD Work Phone: [facility] Work Phone: 05-27-2019 09:30-0500 Heart rate 68 /min [facility] Work Phone: 05-27-2019 09:30-0500 Respiratory rate 15 /min Brandon Faye MD Work Phone: [facility] Work Phone: 05-27-2019 09:30-0500 SaO2% (BldA) [Mass fraction] 94 % Brandon Faye MD Work Phone: [facility] Work Phone: 05-27-2019 09:30-0500 Systolic blood pressure 123 mm[Hg] Brandon Faye MD Work Phone: [facility] Work Phone: 05-27-2019 06:56-0500 Body height 157.5 cm Brandon Faye MD Work Phone: [facility] Work Phone: 05-27-2019 06:56-0500 Body mass index (BMI) [Ratio] 19.66 kg/m2 Brandon Faye MD Work Phone: [facility] Work Phone: 05-27-2019 06:56-0500 Body weight 48.76 kg Brandon Faye MD Work Phone: [facility] Work Phone: 2019 13:58-0500 Height 157.5 cm [facility] [place] 2019 13:56-0500 BMI (Body Mass Index) 19.74 kg/m2 Brandon Faye [facility], [place] 2019 13:56-0500 Body Temperature 98.6 [degF] [facility] [place] [facility] 13:56-0500 Body weight 48.94 kg [facility]ier [facility] [place] 2019 13:56-0500 BP Diastolic 95 mm[Hg] [facility] [place] [facility] 13:56-0500 BP Systolic 170 mm[Hg] [facility] , [place] 2019 13:56-0500 Pulse (Heart Rate) 59 /min [facility], [place] 2019 13:56-0500 Pulse Oximetry 95 % [facility] , [place] 2019 13:56-0500 Respiratory Rate 16 /min [facility] [place] 01-08-2017 13:29-0400 BMI (Body Mass Index) 20.19 [...] Date Encounter Type Care Provider Facility Start: 12-25-2024 ambulatory Odalis MERCER Facility:[facility] Start: 11-27-2024 ambulatory Odalis MERCER Facility:[facility] Start: 11-27-2024 Registered Referred Odalis Saravia MD -[facility] Start: 11-07-2024 End: 11-07-[address] Howard Zimmerman MD Work Phone: [facility] Work Phone: Start: 11-07-2024 End: 11-07-2024 [facility] Work [facility]: Start: 10-23-2024 ambulatory Odalis meek OLS Facility:[facility] Start: 10-23-2024 [facility] Start: 10-22-2024 End: 10-22-[address] Howard Zimmerman MD Work Phone: [facility] Work Phone: Start: 10-22-2024 End: 10-22-2024 [facility] Start: 10-22-2024 End: 10-22-2024 ambulatory Odalis MERCER Facility:[facility] Start: 10-20-2024 End: 10-20-2024 Office outpatient visit 25 minutes Selvin Felder MD Work Phone: Neurology Comment on above: Parkinson's disease 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) (Primary Dx); Neurogenic orthostatic hypotension (HCC) Start: 10-20-2024 End: 10-20-2024 ambulatory SELVIN FELDER Facility:[facility] Start: 09-18-2024 End: 09-18-2024 [facility] 09-18-[facility]24 [facility] Start: 09-17-2024 End: 09-18-[address] Howard Zimmerman MD Work Phone: [facility] Work Phone: Start: 09-17-2024 End: 09-17-2024 Patient encounter procedure [facility] Work Phone: Start: 09-11-2024 End: 09-11-[address] Howard Zimmerman MD Work Phone: [facility] Work Phone: Start: 09-11-2024 End: 09-11-2024 [facility] Start: 09-11-2024 [facility] Start: 09-11-2024 End: 09-11-2024 ambulatory Ilabonniejeniffer Saravia OLS Facility:[facility] Start: 08-26-2024 End: 08-26-2024 ambulatory Efbonnielavonnelaila Riccardoermiascarlito Facility:[facility] Start: 08-26-2024 End: 08-26-[address] Odalis Saravia MD -[facility] Work Phone: Start: 08-14-2024 End: 08-14-[address] Howard Zimmerman MD Work Phone: [facility] Work Phone: Start: 08-14-2024 End: 08-14-2024 [facility] Start: 08-14-2024 End: 08-14-2024 ambulatory Ilabonniejeniffer MERCER Facility:[facility] Start: 07-31-2024 End: 07-31-2024 ambulatory Pam Ramone Facility:[facility] Start: 07-31-2024 End: 07-31-2024 Patient encounter procedure Pam JOHNSON -[facility] Work Phone: Start: 07-17-2024 ambulatory Ilabonniejeniffer Gug gaviota MERCER Facility:[facility] Start: 07-17-2024 [facility] Start: 07-01-2024 End: 07-01-2024 ambulatory Efbonnielavonnelaila Manjit Facility:[facility] Start: 07-01-2024 End: 07-01-[address] Odalis Saravia MD -[facility] Work Phone: Start: 06-26-2024 End: 06-26-2024 [facility] Start: 06-26-2024 End: 06-26-2024 ambulatory Marthalaila Guermiascarlito OLS Facility:[facility] Start: 06-19-2024 ambulatory Odalis Zeb he OLS Facility:[facility] Start: 06-19-2024 [facility] Start: 06-17-2024 End: 06-17-2024 ambulatory Odalis Riccardoermiascarlito Facility:[facility] Start: 06-17-2024 End: 06-17-[address] Odalis Saravia MD -[facility] Work Phone: Start: 06-10-2024 End: 06-10-2024 [facility] Start: 06-10-2024 End: 06-10-2024 ambulatory Ilabonniejeniffer Saravia OLS Facility:[facility] Start: 05-29-2024 End: 05-29-2024 ambulatory [facility] Facility:[facility] Start: 05-29-2024 End: 05-29-2024 Patient encounter procedure Pam JOHNSON -[facility] Work Phone: Start: 05-22-2024 End: 05-22-2024 [facility] Start: 05-22-2024 End: 05-22-2024 ambulatory Efmarcy Riccardoermiascarlito OLS Facility:[facility] Start: 05-14-2024 End: 05-14-2024 ambulatory [facility] Facility:[facility] Start: 05-14-2024 End: 05-14-2024 Emergency department patient visit Howard Gustavo Erasmo Facility:[facility] Start: 05-07-2024 End: 05-07-2024 ambulatory [facility] Facility:[facility] Start: 04-24-2024 ambulatory Odalis meek OLS Facility:[facility] Start: 04-22-2024 End: 04-22-2024 ambulatory Efmarcy Tocarlito Facility:[facility] Start: 04-21-2024 End: 04-21-2024 Telephone encounter Selvin Felder MD Work Phone: Neurology Comment on above: Appointment Start: 04-21-2024 End: 04-21-2024 ambulatory SELVIN FELDER Facility:[facility] Start: 04-21-2024 End: 04-21-2024 Office outpatient visit 25 minutes Selvin Felder MD Work Phone: Neurology Comment on above: Parkinson's disease 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) Start: 03-21-2024 End: 03-21-2024 ambulatory Howard Chi Erasmo Facility:[facility] Start: 03-20-2024 ambulatory Efewongbe Zeb he OLS Facility:[facility] Start: 03-13-2024 End: 03-13-2024 ambulatory Efewongbe Oleermiase OLS Facility:[facility] Start: 03-06-2024 End: 03-06-2024 ambulatory Efewongbe Zuleikae OLS Facility:[facility] Start: 03-04-2024 End: 03-04-2024 ambulatory Efewongbe Oleghe OLS Facility:[facility] Start: 02-28-2024 ambulatory Efewongbe Zeb he OLS Facility:[facility] Start: 02-26-2024 End: 02-26-2024 ambulatory Efewongbe Oleermiase Facility:[facility] Start: 02-21-2024 ambulatory Efewongbe Zeb he OLS Facility:[facility] Start: 02-14-2024 ambulatory Efewongbe Zeb he OLS Facility:[facility] Start: 02-13-2024 End: 02-13-2024 ambulatory [facility] Facility:[facility] Start: 02-07-2024 End: 02-07-2024 ambulatory [facility] Facility:[facility] Start: 01-31-2024 ambulatory Efewongbe Zeb he OLS Facility:[facility] Start: 01-29-2024 End: 01-29-2024 Emergency department patient visit Efewongbe Zuleikae Facility:[facility] Start: 01-24-2024 ambulatory Efewongbe Zeb he OLS Facility:[facility] Start: 01-17-2024 ambulatory Efewongbe Zeb he OLS Facility:[facility] Start: 01-10-2024 ambulatory Odalis meek OLS Facility:[facility] Start: 01-03-2024 ambulatory Odalis meek OLS Facility:[facility] Start: 01-01-2024 End: 01-01-2024 ambulatory Odalis Saravia Facility[facility] Start: 10-18-2023 End: 10-18-2023 Office outpatient visit 25 minutes Selvin Felder MD Work Phone: Neurology Comment on above: Parkinson's disease 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) (Primary Dx) Start: 10-17-[address] Howard almaraz Work Phone: [facility] Start: 10-17-2023 Dr. Howard Zimmerman Work Phone: [facility] Start: 10-05-2023 End: 10-05-[address] Howard Zimmerman Work Phone: [facility] Work Phone: Start: 10-05-2023 End: 10-05-[address] Howard Zimmerman Work Phone: [facility] Start: 10-05-2023 End: 10-05-2023 Dr. Howard Zimmerman Work Phone: [facility] Start: 09-19-2023 End: 09-19-[address] Howard Zimmerman Work Phone: [facility] Work Phone: Start: 09-19-2023 End: 09-19-2023 Dr. Howard Zimmerman Work Phone: [facility] Work Phone: Start: 09-14-2023 End: 10-04-2023 Evaluation and management of inpatient Dr. Howard Zimmerman Work Phone: [facility] Start: 09-14-2023 End: 10-04-2023 Dr. [facility] Start: 09-14-2023 Non-patient / Non-visit Dr. Keith Zimmerman Work Phone: [facility] Work Phone: Start: 09-14-2023 Dr. Howard Zimmerman Work Phone: [facility] Work Phone: Start: 09-13-2023 Non-patient / Non-visit Dr. Keith Zimmerman Work Phone: [facility] Work Phone: Start: 09-13-2023 Dr. Howard Zimmerman Work Phone: [facility] Work Phone: Start: 09-12-2023 Non-patient / Non-visit Dr. Keith Zimmerman Work Phone: [facility] Work Phone: Start: 09-12-2023 Dr. Howard Zimmerman Work Phone: [facility] Work Phone: Start: 09-11-2023 Non-patient / Non-visit Dr. Keith Zimmerman Work Phone: [facility] Work Phone: Start: 09-11-2023 Dr. Howard Zimmerman Work Phone: [facility] Work Phone: Start: 09-10-2023 Non-patient / Non-visit Dr. Keith Zimmerman Work Phone: [facility] Work Phone: Start: 09-10-2023 Dr. Howard Zimmerman Work Phone: [facility] Work Phone: Start: 09-09-2023 Non-patient / Non-visit Dr. Keith Zimmerman Work Phone: [facility] Work Phone: Start: 09-09-2023 Dr. Howard Zimmerman Work Phone: [facility] Work Phone: Start: 09-08-2023 Non-patient / Non-visit Dr. Keith Zimmerman Work Phone: [facility] Work Phone: Start: 09-08-2023 Dr. Howard Zimmerman Work Phone: [facility] Work Phone: Start: 09-08-2023 End: 09-14-2023 Evaluation and management of inpatient [facility]. Howard Zimmerman [facility] Work [facility]: Start: 09-08-2023 End: 09-14-[address] Howard Zimmerman Work Phone: [facility] Work Phone: Start: 09-08-2023 End: 09-14-2023 Dr. Howard Zimmerman [facility] Work [facility]: Start: 09-05-2023 End: 09-05-[address] Howard Zimmerman Work Phone: [facility] Work Phone: Start: 09-05-2023 End: 09-05-[address] Howard Zimmerman Work Phone: [facility]-Physical Therapy Work Phone: Start: 09-05-[address] Howard [facility]driguez [facility] Start: 09-05-2023 Dr. Howard Zimmerman [facility] Start: 08-22-[address] Howard rodriguez Work Phone: [facility] Work Phone: Start: 08-21-2023 End: 08-21-[address] Howard Zimmerman Work Phone: [facility] Work Phone: Start: 08-21-2023 End: 08-21-[address] Howard Zimm[facility] Start: 08-21-2023 End: 08-21-2023 Dr. Howard Zimmerman Work Phone: [facility], Phy Office 3rd Flr Start: 08-20-2023 End: 08-20-[address] Howard Zimmerman Work Phone: [facility] Work Phone: Start: 08-20-2023 End: 08-20-[address] Howard Zimm[facility] Start: 08-20-2023 End: 08-20-2023 Dr. 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 Howard Zimmerman Work Phone: [facility] Work Phone: Start: 08-01-2023 End: 08-01-[address] Howard Zimmerman Work Phone: [facility] Work Phone: Start: 08-01-2023 End: 08-01-2023 Dr. Howard Zimmerman Work Phone: [facility] Work Phone: Start: 08-01-[address] Howard rodriguez Work Phone: [facility] Work Phone: Start: 07-30-2023 Refill Selvin ortiz MD Work Phone: [facility] Comment on above: Refill Request Start: 07-28-2023 End: 07-28-2023 Emergency department patient visit Dr. Howard Zimmerman Work Phone: [facility]Emergency Department Work Phone: Start: 07-28-2023 End: 07-28-2023 Dr. Howard Zimmerman Work Phone: [facility] Work Phone: Start: 07-25-[address] Howard rodriguez Work Phone: [facility] Work Phone: Start: 07-10-[address] Howard almaraz Work Phone: [facility]Cardiovascul [facility] Services Work Phone: Start: 07-10-2023 Dr. Howard Zimmerman Work Phone: [facility] Work Phone: Start: 07-10-2023 Non-patient / Non-visit Dr. Keith Zimmerman Work Phone: [facility] Work Phone: Start: 07-10-2023 Dr. Howard Zimmerman Work Phone: [facility] Work Phone: Start: 06-29-2023 Non-patient / Non-visit Dr. Keith Zimmerman Work Phone: [facility] Work Phone: Start: 06-29-2023 Dr. Howard Zimmerman Work Phone: [facility] Work Phone: Start: 06-29-2023 Non-patient / Non-visit Dr. Keith Zimmerman Work Phone: [facility] Start: 06-29-2023 Dr. Howard Zimmerman Work Phone: [facility] Start: 06-28-2023 End: 06-29-2023 Evaluation and management of inpatient Dr. Howard Zimmerman [facility] Work [facility]: Start: 06-28-2023 End: 06-29-[address] Howard Zimmerman Work Phone: [facility] Work Phone: Start: 06-28-2023 Non-patient / Non-visit Dr. Keith Zimmerman Work Phone: [facility] Work Phone: Start: 06-28-2023 End: 06-29-2023 Dr. Howard Zimmerman [facility] Work [facility]: Start: 06-27-[address] Howard rodriguez Work Phone: [facility] Work Phone: Start: 05-30-2023 Registered Recurring [facility] Work Phone: Start: 05-28-2023 End: 05-28-2023 ambulatory [facility] Work Phone: Start: 05-28-2023 End: 05-28-2023 Patient encounter procedure [facility], [facility] Office 3rd Flr Start: 05-18-2023 Telephone encounter Selvin laird MD Work Phone: [facility] Comment on above: Patient Question Start: 05-15-2023 End: 05-15-2023 ambulatory [facility] Work Phone: Start: 05-15-2023 End: 05-15-[address] Howard Zimmerman Work Phone: [facility]-Pulmonary Services/Neurology Work Phone: Start: 05-14-2023 End: 05-14-[address] Howard Zimmerman Work Phone: [facility] Work Phone: Start: 05-14-2023 End: 05-14-[address] Howard Zimmerman Work Phone: [facility], [facility] Office 3rd Flr Start: 05-09-[address] Howard rodriguez Work Phone: [facility] Work Phone: Start: 05-08-2023 End: 05-08-[address] Howard Zimmerman Work Phone: [facility] Work Phone: Start: 05-08-2023 End: 05-08-[address] [facility] Start: 05-04-[address] Howard rodriguze Work Phone: [facility] Work Phone: Start: 05-03-2023 End: 05-03-[address] Howard Zimmerman Work Phone: [facility] Work Phone: Start: 05-03-2023 End: 05-03-[address] Howard Zimmerman Work Phone: [facility]-Radiology, [facility] Work Phone: Start: 04-25-[address] Howard rodriguez Work Phone: [facility] Work Phone: Start: 04-23-2023 End: 04-23-[address] Howard Zimmerman Work Phone: [facility] Work Phone: Start: 04-23-2023 End: 04-23-[address] Howard Zimmerman Work Phone: [facility]-Cat Scan, [facility] Work Phone: Start: 04-04-2023 End: 04-04-2023 Office outpatient visit 25 minutes Selvin Felder MD Work Phone: Neurology Comment on above: Parkinson's disease without dyskinesia or fluctuating manifestations (Primary Dx) Start: 04-02-2023 End: 04-02-[address] Howard Zimmerman Work Phone: [facility] Work Phone: Start: 04-02-2023 End: 04-02-[address] Howard Zimmerman Work Phone: [facility]-Laboratory, Phy Office 3rd Flr Start: 03-28-[address] Howard rodriguez Work Phone: [facility]Occupational Therapy Work Phone: Start: 03-01-2023 End: 03-01-[address] Howard Zimmerman Work Phone: [facility] Work Phone: Start: 03-01-2023 End: 03-01-[address] Howard Zimmerman Work Phone: [facility]-Cat Scan, [facility] Work Phone: Start: 02-21-2023 End: 02-21-[address] Howard Zimmerman Work Phone: [facility] Work Phone: Start: 02-21-2023 End: 02-21-[address] Howard Zimmerman Work Phone: [facility], Phy Office 3rd Flr Start: 02-21-[address] 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 Keith Zimmerman Work Phone: [facility] Work Phone: Start: 01-15-2023 Non-patient / Non-visit Dr. Keith Zimmerman Work Phone: [facility] Work Phone: Start: 01-15-2023 Non-patient / Non-visit Dr. Keith Zimmerman Work Phone: [facility] Start: 01-15-2023 End: 01-16-2023 Evaluation and management of inpatient Dr. Howard Zimmerman Work Phone: [facility] Work Phone: Start: 01-15-2023 End: 01-16-[address] Howard Zimmerman Work Phone: [facility] Work Phone: Start: 01-05-2023 End: 01-05-[address] Howard Zimmerman Work Phone: [facility] Work Phone: Start: 12-08-2022 End: 12-08-2022 ambulatory [facility] Work Phone: Start: 12-08-2022 End: 12-08-2022 Patient encounter procedure [facility]-Pulmonary Services/Neurology Start: 11-29-2022 End: 11-29-2022 ambulatory [facility] Work Phone: Start: 11-29-2022 End: 11-29-2022 Patient encounter procedure [facility]-Pulmonary Services/Neurology Start: 11-20-2022 Telephone encounter Selvin laird MD Work Phone: [facility] Comment on above: Patient Request Start: 10-20-2022 End: 10-20-2022 ambulatory [facility] Work Phone: Start: 10-20-2022 End: 10-20-2022 Patient encounter procedure [facility]Radiology, [facility] Start: 09-19-2022 End: 09-19-[address] Howard Zimmerman Work Phone: [facility] Work Phone: Start: 09-19-2022 End: 09-19-[address] Howard Zimmerman Work Phone: [facility] Start: 08-30-2022 End: 08-30-[address] Howard Zimmerman Work Phone: [facility] Work Phone: Start: 08-30-2022 End: 08-30-[address] Howard Zimmerman Work Phone: [facility] Start: 08-29-2022 End: 08-29-[address] Howard Zimmerman Work Phone: [facility] Work Phone: Start: 08-29-2022 End: 08-29-[address] Howard Zimmerman Work Phone: [facility]-Laboratory, Phy Office 3rd Flr Start: 08-29-[address] 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 Keith iZmmerman Work Phone: [facility] Start: 07-19-2022 End: 07-20-[address] Howard Zimmerman Work Phone: [facility] Work Phone: Start: 07-19-2022 End: 07-20-[address] 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 Keith Zimmerman Work Phone: [facility] Start: 07-05-2022 End: 07-18-[address] Howard Zimmerman Work Phone: [facility] Work Phone: Start: 07-05-2022 End: 07-18-[address] Howard Zimmerman Work Phone: [facility] Start: 06-30-2022 End: 06-30-2022 Subsequent hospital visit by physician Screen Mammo [facility] Mammogram Comment on above: Encounter for screen ing mammogram for malignant neoplasm of breast [Z12.31] Start: 06-28-2022 Non-patient / Non-visit Dr. Keith Zimmerman Work Phone: [facility] Start: 06-23-2022 Non-patient / Non-visit Dr. Keith Zimmerman Work Phone: [facility] Start: 06-14-2022 Non-patient / Non-visit Dr. Keith Zimmerman Work Phone: [facility] Start: 06-14-2022 End: 06-17-[address] Howard Zimmerman Work Phone: [facility] Work Phone: Start: 06-14-2022 End: 06-17-[address] Howard Zimmerman Work Phone: [facility] Start: 06-07-2022 Non-patient / Non-visit Dr. Keith Zimmerman Work Phone: [facility] Start: 06-01-2022 End: 06-01-[address] Howard Zimmerman Work Phone: [facility] Work Phone: Start: 06-01-2022 End: 06-01-[address] Howard Zimmerman Work Phone: [facility]-Laboratory, Specimen Start: 05-25-2022 End: 05-25-[address] Howard Zimmerman Work Phone: [facility] Work Phone: Start: 05-25-2022 End: 05-25-[address] Howard Zimmerman Work Phone: [facility], Phy Office 3rd Flr Start: 05-12-2022 End: 05-12-2022 Emergency department patient visit Dr. Howrad Zimmerman Work Phone: [facility]-Emergency Department Start: 04-19-2022 End: 04-19-[address] Howard Zimmerman Work Phone: [facility], y Office 3rd Flr Start: 04-14-2022 End: 04-14-2022 Emergency department patient visit Dr. Howard Zimmerman Work Phone: [facility]Emergency [facility] Start: 04-10-2022 End: 04-10-[address] Howard Zimmerman Work Phone: [facility] Work Phone: Start: 04-10-2022 End: 04-10-[address] Howard Zimmerman Work Phone: [facility], [facility] Start: 04-07-2022 End: 04-07-[address] Howard Zimmerman Work Phone: [facility] Work Phone: Start: 04-07-2022 End: 04-07-[address] Howard Zimmerman Work Phone: [facility]-Pulmonary Services/Neurology Start: 04-06-2022 End: 04-06-[address] Howard Zimmerman Work Phone: [facility] Work Phone: Start: 04-06-2022 End: 04-06-[address] Howard Zimmerman Work Phone: [facility]-Radiology, [facility] Start: 04-04-2022 Telephone encounter Irasema Armenta MD Work Phone: OB/Gynecology Comment on above: Orders Start: 03-30-2022 End: 03-30-[address] Howard Zimmerman Work Phone: [facility] Start: 03-08-2022 Telephone encounter Bart cassidy DO Work Phone: Hematology/Oncology Comment on above: Results (CT A/P) Start: 03-07-2022 End: 03-07-[address] Howard Zimmerman Work Phone: [facility] Work Phone: Start: 03-07-2022 End: 03-07-[address] Howard Zimmerman Work Phone: [facility]-Pulmonary Services/Neurology Start: 03-06-2022 End: 03-06-[address] Howard Zimmerman Work Phone: [facility] Work Phone: Start: 03-06-2022 End: 03-06-[address] Howard Zimmerman Work Phone: [facility]-Laboratory, Phy Office 3rd Flr Start: 02-14-2022 End: [...] encounter procedure Dr. Howard Zimmerman Work Phone: [facility] Start: 12-05-2021 Telephone encounter Bart cassidy DO Work Phone: Hematology/Oncology Comment on above: Patient Update Start: 11-23-2021 End: 11-23-[address] Howard Zimmerman Work Phone: [facility] Start: 11-21-2021 End: 11-21-[address] 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 Howard Zimmerman MD Work Phone: Start: 11-26-2024 Legionella pneumophi la antigen assay Dr. Howard Zimmerman MD Work Phone: Start: 10-23-2024 Vitamin D, 25-hydrox y measurement [...] nmol/L) Start: 09-11-[address] Hoawrd Zimmerman MD Work Phone: Start: 08-14-2024 Reactive [...] Phone: Start: 04-10-2022 Plain chest X-ray Dr. Jarad Zimmerman Work Phone: Start: 04-06-2022 Plain chest X-ray Dr. Jarad Zimmerman Work Phone: Start: 03-06-2022 Diagnostic radiograp hy of abdomen Dr. Howard Zimmerman Work Phone: Start: 03-06-2022 Plain x-ray of pelvi s and lower extremity Dr. 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- C Start: 06-26-2016 End: 12-26-2016 Follow Up Appt Other Gonzalez A Bernard CASTING MACHINE OPERATOR [employer]ATIC-C Start: 06-26-2016 End: 06-28-2016 Magnesium [Mass/volume] in Serum or Plasma Gonzalez A Bernard CASTING MACHINE OPERATOR [employer]ATIC-C Start: 04-13-2016 End: 12-26-2016 *Hepatic Function Panel [...] Work Phone: Start: 04-08-2013 End: 04-08-2013 PFM Julisas Da Silva PA-C Work Phone: Start: 11-16-2012 [...] Vaccine (3 - Td or Tdap) [facility] Start: 08-15-2025 DIABETES SCREEN DIABETES SCREEN [facility] Start: 08-15-2025 Diabetes Screening Diabetes Screening [facility] Start: 05-04-2025 End: 05-04-2025 Patient encounter procedure 05/04/2025 11:00 AM EST Office Visit Neurology [address] [id number] Selvin Felder MD [address] [address] 6 month follow up Neurology Comment on above: 6 month follow up Start: 02-16-2025 Influenza vaccination Influenza Vaccine (Season Ended) [facility] Start: 02-14-2025 DIABETES SCREEN DIABETES SCREEN [facility] Start: 10-20-2024 End: 10-20-2024 Patient encounter procedure 10/20/2024 11:00 AM EDT Office Visit Neurology [address] [address] Selvin Felder MD [address] [address] 6 month follow up Neurology Comment on above: 6 month follow up Start: 07-04-2024 End: 07-04-2024 Patient encounter procedure 07/04/2024 1:40 PM EST Office Visit OB/Gynecology [address] [place] [address] Irasema Armenta MD [address] [place] [address] annual OB/Gynecology Comment on above: annual Start: 06-18-2024 Advance Directive Discussion Advance Directive Discussion [facility] Start: 04-21-2024 End: 04-21-2024 Patient encounter procedure 04/21/2024 11:00 AM EST Office Visit Neurology [address] [facility] [address] [place] [address] Selvin Felder MD [address] [facility] [address] [place] [address] 6 month follow up Neurology Comment on above: 6 month follow up Start: 02-22-2024 End: 02-22-2024 ambulatory [facility] Comment on above: CBC/LDH 6 MO OV/ LABS CBC/ L DH * Start: 02-17-2024 Covid-19 Vaccine ( season) Covid-19 Vaccine ( season) [facility] Start: 02-17-2024 Influenza [facility] Start: 10-19-2023 Blood chemistry [facility] Start: 10-12-2023 Blood chemistry [facility] Start: 10-04-2023 Patient discharge [facility] Start: 10-03-2023 Development of care plan [facility] Start: 09-29-2023 [facility] Start: 09-27-2023 [facility] Start: 09-20-2023 Speech therapy management [facility] Start: 09-20-2023 Speech therapy assessment [facility] Start: 09-19-2023 [facility] Start: 09-15-2023 End: 09-15-2023 [facility] Start: 09-15-2023 Development of care plan [facility] Start: 09-15-2023 Developing a treatment plan [facility] Start: 09-14-2023 Admission procedure [facility] Start: 09-14-2023 Measuring intake and output [facility] Start: 09-14-2023 Patient referral to dietitian [facility] Start: 09-14-2023 Referral to occupational therapist [facility] Start: 09-14-2023 Referral to service [facility] Start: 09-14-2023 Vital signs measurements [facility] Start: 09-14-2023 [facility] Start: 09-14-2023 Patient discharge [facility] Start: 09-14-2023 [facility] Start: 09-11-2023 Care planning and problem solving actions [facility] Start: 09-11-2023 Telemedicine consultation with patient [facility] Start: 09-11-2023 [facility] Start: 09-08-2023 Following clinical pathway protocol [facility] Start: 09-08-2023 Assessment of risk of venous thromboembolism [facility] Start: 09-08-2023 Insertion of catheter into peripheral vein [facility] Start: 09-08-2023 Providing care according to standard [facility] Start: 09-08-2023 Provision of activity privileges [facility] Start: 09-08-2023 Referral to occupational therapist [facility] Start: 09-08-2023 Referral to service [facility] Start: 09-08-2023 [facility] Start: 09-08-2023 Urinalysis complete panel - Urine [facility] Start: 09-08-2023 Verification routine [facility] Start: 09-08-2023 Admission procedure [facility] Start: 09-08-2023 Hospital admission, emergency, from emergency room, medical nature [facility] Start: 09-08-2023 [facility] Start: 09-08-2023 Patient referral to dietitian [facility] Start: 08-17-2023 End: 11-16-2023 CBC W Auto Differential panel - Blood CBC + DIFF Lab STAT 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) Expected: 08/17/2023, Expires: 11/16/2023 [facility] Work Phone: Comment on above: Expected: 08/17/2023, Expires: Start: 08-17-2023 End: 11-16-2023 Lactate dehydrogenase [Enzymatic activity/volume] in Serum or Plasma LD LACTATE DEHYDRO Lab Routine 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) Expected: 08/17/2023, Expires: 11/16/2023 [facility] Work Phone: Comment on above: Expected: 08/17/2023, Expires: Start: 07-28-2023 [facility] Start: 07-28-2023 Repair intermediate n/h/f/xtrnl gent 2.6-7.5 cm [facility] Start: 06-29-2023 Referral to service [facility] Start: 06-29-2023 Patient discharge [facility] Start: 06-28-2023 Following clinical pathway protocol [facility] Start: 06-28-2023 Aspiration precautions [facility] Start: 06-28-2023 Assessment of risk of venous thromboembolism [facility] Start: 06-28-2023 Cardiac monitoring [facility] Start: 06-28-2023 Catheterization of vein [facility] Start: 06-28-2023 Continuous pulse oximetry [facility] Start: 06-28-2023 Elevation of head of bed [facility] Start: 06-28-2023 Exercises [facility] Start: 06-28-2023 Fall prevention [facility] Start: 06-28-2023 Implementation of planned interventions [facility] Start: 06-28-2023 Inhalation therapy procedure [facility] Start: 06-28-2023 Insertion of catheter into peripheral vein [facility] Start: 06-28-2023 Introduction of urinary catheter [facility] Start: 06-28-2023 Measuring intake and output [facility] Start: 06-28-2023 Notification of physician [facility] Start: 06-28-2023 Oxygen therapy [facility] Start: 06-28-2023 Patient referral to dietitian [facility] Start: 06-28-2023 Providing care according to standard [facility] Start: 06-28-2023 Provision of activity privileges [facility] Start: 06-28-2023 Referral to occupational therapist [facility] Start: 06-28-2023 Referral to service [facility] Start: 06-28-2023 Speech therapy assessment [facility] Start: 06-28-2023 Telemedicine consultation with patient [facility] Start: 06-28-2023 Tobacco use cessation education [facility] Start: 06-28-2023 [facility] Start: 06-28-2023 Verification routine [facility] Start: 06-28-2023 Admission procedure [facility] Start: 06-28-2023 Hospital admission, emergency, from emergency room, medical nature [facility] Start: 06-28-2023 Oxygen therapy [facility] Start: 06-28-2023 [facility] Start: 06-18-2023 Advance Directive Discussion Advance Directive Discussion [facility] Start: 06-18-2023 Depression Assessment Depression Assessment [facility] Start: 05-08-2023 Procedure [facility] Start: 02-20-2023 COVID-19 VACCINE (6 - Moderna series) COVID-19 VACCINE (6 - Moderna series) [facility] Start: 02-16-2023 Covid-19 Vaccine (2022- season) Covid-19 Vaccine ( season) [facility] Start: 02-16-2023 Influenza vaccination [facility] Start: 01-16-2023 Patient discharge [facility] Start: 01-15-2023 Following clinical pathway protocol [facility] Start: 01-15-2023 Ambulation without limitation [facility] Start: 01-15-2023 Assessment of risk of venous thromboembolism [facility] Start: 01-15-2023 Catheterization of vein [facility] Start: 01-15-2023 Insertion of catheter into peripheral vein [facility] Start: 01-15-2023 Measuring intake and output [facility] Start: 01-15-2023 Providing care according to standard [facility] Start: 01-15-2023 Referral to occupational therapist [facility] Start: 01-15-2023 Referral to service [facility] Start: 01-15-2023 Speech therapy assessment [facility] Start: 01-15-2023 [facility] Start: 01-15-2023 Verification routine [facility] Start: 01-15-2023 Admission procedure [facility] Start: 01-15-2023 Patient referral to dietitian [facility] Start: 01-15-2023 [facility] Start: 11-29-2022 [facility] Start: 08-15-2022 End: 10-15-2022 CBC W Auto Differential panel - Blood CBC + DIFF Lab STAT 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) Expected: 08/15/2022, Expires: 10/15/2022 [facility] Work Phone: Comment on above: Expected: 08/15/2022, Expires: 3 Start: 08-15-2022 End: 10-15-2022 Comprehensive metabolic 2000 panel - Serum or Plasma COMP METABOLIC PANEL Lab STAT 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) Expected: 08/15/2022, Expires: 10/15/2022 [facility] Work Phone: Comment on above: Expected: 08/15/2022, Expires: 3 Start: 08-15-2022 End: 10-15-2022 Lactate dehydrogenase [Enzymatic activity/volume] in Serum or Plasma LD LACTATE DEHYDRO Lab Routine 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) Expected: 08/15/2022, Expires: 10/15/2022 [facility] Work Phone: Comment on above: Expected: 08/15/2022, Expires: 3 Start: 06-18-2022 ADVANCE DIRECTIVE DISCUSSION ADVANCE DIRECTIVE DISCUSSION [facility] Start: 06-18-2022 DEPRESSION ASSESSMENT DEPRESSION ASSESSMENT [facility] Start: 05-12-2022 Smpl repair scalp/neck/ax/genit/trun k 2.6-7.5cm RPR S/N/AX/GEN/TRNK2.6-7.5CM [facility] Start: 02-16-2022 Influenza vaccination INFLUENZA (#1) [facility] Start: 02-14-2022 End: 04-16-2022 CBC W Auto Differential panel - Blood CBC + DIFF Lab STAT 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) Expected: 02/14/2022, Expires: 04/16/2022 [facility] Work Phone: Comment on above: Expected: 02/14/2022, Expires: 2 Start: 02-14-2022 End: 04-16-2022 Comprehensive metabolic 2000 panel - Serum or Plasma COMP METABOLIC PANEL Lab Routine 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) Expected: 02/14/2022, Expires: 04/16/2022 [facility] Work Phone: Comment on above: Expected: 02/14/2022, Expires: 2 Start: 02-14-2022 End: 04-16-2022 Lactate dehydrogenase [Enzymatic activity/volume] in Serum or Plasma LD LACTATE DEHYDRO Lab Routine 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) Expected: 02/14/2022, Expires: 04/16/2022 [facility] Work Phone: Comment on above: Expected: 02/14/2022, Expires: 2 Start: 12-22-2021 Procedure [facility] Work Phone: Start: 11-09-2021 COVID-19 VACCINE (5 - Booster for Moderna series) COVID-19 VACCINE (5 - Booster for Moderna series) [facility] Start: 06-18-2021 ADVANCE DIRECTIVE DISCUSSION ADVANCE DIRECTIVE DISCUSSION [facility] Start: 06-18-2021 DEPRESSION ASSESSMENT DEPRESSION ASSESSMENT [facility] Start: 06-28-2019 DIABETES SCREEN DIABETES SCREEN [facility] Start: 06-05-2019 End: 06-05-2019 Office Visit 06/05/2019 Office Visit Orthopedic Surgery Brandon Faye MD [address] [facility] [address] [place] [address] [phone] [facility] Start: 05-27-2019 Hospital Encounter 05/27/2019 Hospital Encounter General Surgery Brandon Faye MD [address] [facility] [address] [place] [address] [phone] [facility] Start: 05-01-2019 Annual Wellness Visit (AWV) Annual Wellness Visit (AWV) [facility] [place] Start: 02-16-2019 Influenza vaccination Flu vaccine (#1) [place], [place] Start: 01-07-2018 End: 01-07-2018 Appointment [facility] Work Phone: Start: 05-07-2017 End: 05-07-2017 Appointment Appointment [facility] Work Phone: Start: 01-08-2017 End: 01-08-2017 *Hepatic Function Panel *Hepatic Function Panel [facility] Work Phone: Start: 01-08-2017 End: 01-08-2017 Follow Up Appt 1 year Follow Up Appt 1 year [facility] Work Phone: Start: 01-08-2017 End: 01-08-2017 Lipid panel [AGGREGATE] *Lipid Profile CC PCP [facility] Work Phone: Start: 01-08-2017 End: 01-08-2017 PFM PFM [facility] Work Phone: Start: 12-26-2016 End: 07-03-2016 *Hepatic Function Panel *Hepatic Function Panel [facility] Work Phone: Start: 12-26-2016 End: 07-03-2016 Lipid panel [AGGREGATE] *Lipid Profile CC PCP [facility] Work Phone: Start: 06-26-2016 End: 06-28-2016 *BMP *BMP [facility] Work Phone: Start: 06-26-2016 End: 06-28-2016 *CBC with Differential *CBC with Differential [facility] Work Phone: Start: 06-26-2016 End: 12-26-2016 Follow Up Appt Other Follow Up Appt Other [facility] Work Phone: Start: 06-26-2016 End: 06-28-2016 Magnesium *Magnesium [facility] Work Phone: Start: 04-13-2016 End: 12-26-2016 *Hepatic Function Panel *Hepatic Function Panel [facility] Work Phone: Start: 04-13-2016 End: 12-26-2016 Lipid panel [AGGREGATE] *Lipid Profile CC PCP [facility] Work Phone: Start: 01-03-2016 End: 01-03-2016 Echocardiography Echocardiogram (complete) [facility] Work Phone: Start: 01-03-2016 End: 01-03-2016 Follow Up Appt 6 months Follow Up Appt 6 months [facility] Work Phone: Start: 01-03-2016 End: 06-16-2016 Follow Up BP Check Follow Up BP Check [facility] Work Phone: Start: 01-03-2016 End: 10-13-2015 Lipid panel [AGGREGATE] *Lipid Profile CC PCP [facility] Work Phone: Start: 01-03-2016 End: 01-03-2016 MMM MMM [facility] Work Phone: Start: 06-28-2015 End: 07-05-2015 *Hepatic Function Panel *Hepatic Function Panel [facility] Work Phone: Start: 06-28-2015 End: 07-05-2015 Lipid panel [AGGREGATE] *Lipid Profile CC PCP [facility] Work Phone: Start: 06-25-2015 End: 06-25-2015 Follow Up Appt 6 months Follow Up Appt 6 months [facility] Work Phone: Start: 06-25-2015 End: 06-25-2015 PFM PFM [facility] Work Phone: Start: 04-07-2015 End: 04-09-2015 *Hepatic Function Panel *Hepatic Function Panel [facility] Work Phone: Start: 04-07-2015 End: 04-09-2015 Lipid panel [AGGREGATE] *Lipid Profile CC PCP [facility] Work Phone: Start: 11-23-2014 End: 11-23-2014 24 hour holter monitor 24 hour holter monitor [facility] Work Phone: Start: 11-23-2014 End: 11-23-2014 Ecg routine ecg w/least 12 lds w/i&r EKG (In office) [facility] Work Phone: Start: 11-23-2014 End: 11-23-2014 Follow Up Appt 6 months Follow Up Appt 6 months [facility] Work Phone: Start: 11-23-2014 End: 11-23-2014 MMM MMM [facility] Work Phone: Start: 10-06-2014 End: 10-06-2014 *Hepatic Function Panel *Hepatic Function Panel [facility] Work Phone: Start: 10-06-2014 End: 10-06-2014 Lipid panel [AGGREGATE] *Lipid Profile CC PCP [facility] Work Phone: Start: 05-26-2014 End: 05-26-2014 Follow Up Appt Other Follow Up Appt Other [facility] Work Phone: Start: 05-26-2014 End: 05-26-2014 PFM PFM [facility] Work Phone: Start: 01-16-2014 End: 04-07-2014 *Hepatic Function Panel *Hepatic Function Panel [facility] Work Phone: Start: 01-16-2014 End: 04-07-2014 Lipid panel [AGGREGATE] *Lipid Profile CC PCP [facility] Work Phone: Start: 11-24-2013 End: 11-24-2013 Ecg routine ecg w/least 12 lds w/i&r EKG (In office) [facility] Work Phone: Start: 11-24-2013 End: 11-24-2013 Follow Up Appt 6 months Follow Up Appt 6 months [facility] Work Phone: Start: 11-24-2013 End: 11-24-2013 MMM MMM [facility] Work Phone: Start: 09-16-2013 End: [...] hour holter monitor 24 hour holter monitor [facility] Work Phone: Start: 04-08-2013 End: 04-08-2013 Ecg routine ecg w/least 12 lds w/i&r EKG (In office) [facility] Work Phone: Start: 04-08-2013 End: 04-08-2013 Follow Up Appt 6 months Follow Up Appt 6 months [facility] Work Phone: Start: 04-08-2013 End: 04-08-2013 Follow Up Appt Other Follow Up Appt Other [facility] Work Phone: Start: 04-08-2013 End: 04-08-2013 PFM PFM [facility] Work Phone: Start: 11-16-2012 End: 12-02-2012 *Hepatic Function Panel *Hepatic Function Panel [facility] Work Phone: Start: 11-16-2012 End: 12-02-2012 Lipid panel [AGGREGATE] *Lipid Profile [facility] Work Phone: Start: 10-11-2012 End: 10-11-2012 Follow Up Appt 6 months Follow Up Appt 6 months [facility] Work Phone: Start: 10-11-2012 End: 10-11-2012 Follow Up Appt Other Follow Up Appt Other [facility] Work Phone: Start: 10-11-2012 End: 10-11-2012 MMM MMM [facility] Work Phone: Start: 05-18-2012 End: 05-24-2012 *Hepatic Function Panel *Hepatic Function Panel [facility] Work Phone: Start: 05-18-2012 End: 05-24-2012 Lipid panel [AGGREGATE] *Lipid Profile [facility] Work Phone: Start: 12-07-2011 End: 12-19-2011 *Hepatic Function Panel *Hepatic Function Panel [facility] Work Phone: Start: 12-05-2011 End: 12-19-2011 Lipid panel [AGGREGATE] *Lipid Profile [facility] Work Phone: Start: 11-09-2011 End: 11-09-2011 Follow Up Appt 1 year Follow Up Appt 1 year [facility] Work Phone: Start: 09-28-2011 MENINGOCOCCAL CONJUGATE (1 - Risk start 2-23 months series) MENINGOCOCCAL CONJUGATE (1 - Risk start 2-23 months series) [facility] Start: 09-28-2011 Meningococcal Conjugate Vaccine (1 - Risk start 2-23 months series) Meningococcal Conjugate Vaccine (1 - Risk start 2-23 months series) [facility] Start: 2001 DEXA (modify frequency per FRAX score) DEXA (modify frequency per FRAX score) [place], [place] Start: 1986 Shingles Vaccine (1 of 2) Shingles Vaccine (1 of 2) [place], [place] Start: 1955 Urine microalbumin profile DTAP,TDAP,TD (1 - Tdap) [facility] Start: 1954 Anxiety Screening Anxiety Screening [facility] Start: 1954 Depression Screening Depression Screening [facility] Start: 1947 DTaP/Tdap/Td vaccine (1 - Tdap) DTaP/Tdap/Td vaccine (1 - Tdap) [place], [place] Start: 1946 Meningococcal B Vaccine (1 of 5 - Increased Risk) Meningococcal B Vaccine (1 of 5 - Increased Risk) [facility] Start: 1946 Meningococcal B Vaccine: Consider Based On Risk (1 of 4 - Increased Risk) Meningococcal B Vaccine: Consider Based On Risk (1 of 4 - Increased Risk) [facility] Start: 1946 MENINGOCOCCAL B: Consider based on risk (1 of 4 - Increased Risk Bexsero 2-dose series) MENINGOCOCCAL B: Consider based on risk (1 of 4 - Increased Risk Bexsero 2-dose series) [facility] Start: 1946 MENINGOCOCCAL B: Consider based on risk (1 of 4 - Increased Risk) MENINGOCOCCAL B: Consider based on risk (1 of 4 - Increased Risk) [facility] Bilirubin measuremen t, urine [facility] Work Phone: End: 05-27-2019 Blood glucose - POCT Blood glucose - POCT Point of Care Testing STAT One Time for 1 Occurrences starting 05/27/2019 until 05/27/2019 [facility] Work Phone: Comment on above: One Time for 1 Occurrences starting 05/18 until 05/27/2019 Cardiac event recording [facility] End: 03-16-2023 Ct abdomen & pelvis w/o contrast material CT ABD/PEL WO IVCON Radiology Routine 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 1 Occurrences starting 02/14/2022 until 03/16/2023 [facility] Work Phone: Comment on above: 1 Occurrences starting 02/14/2022 until 03/16/2023 Hemoglobin [Presence ] in Urine [facility] Work Phone: Incentive spirometry Incentive s pirometry Respiratory Care Routine Q1H PRN until discontinued starting 05/27/2019 [facility] Work Phone: Comment on above: Q1H PRN until discontinued starting 05/18 Initiate Oxygen Ther apy Protocol Initiate Oxygen Therapy Protocol Respiratory Care Routine Daily until discontinued starting 05/27/2019 [facility] Work Phone: Comment on above: Daily until discontinued starting 2018 End: 05-04-2023 GLEN SCREENING GLEN SCREENING Radiology Routine Encounter for screening mammogram for malignant neoplasm of breast 1 Occurrences starting 04/04/2022 until 05/04/2023 [facility] Work Phone: Comment on above: 1 Occurrences starting 04/04/2022 until 05/04/2023 Measurement of keton es in urine using dipstick [facility] Work Phone: Microscopic urinalysis [facility] Work Phone: Patient Education [facility] Work Phone: Patient referral [facility] Work Phone: pH of Urine [facility] Work Phone: Phase I & II - meter ed glucose Phase I & II - metered glucose Point of Care Testing Routine As Needed until discontinued starting 05/27/2019 [facility] Work Phone: Comment on above: As Needed until discontinued starting Procedure [facility] Work Phone: PT PLAN OF CARE CERTIFICATION PT PLAN OF CARE CERTIFICATION Procedures Routine Parkinson's disease (HCC) Abnormality of gait Ordered: 07/18/2022 [facility] Work Phone: Comment on above: Ordered: 07/18/2022 End: 05-27-2019 Pulse Oximetry Spot Check Pulse Oximetry Spot Check Respiratory Care Routine One Time for 1 Occurrences starting 05/27/2019 until 05/27/2019 [facility] Work Phone: Comment on above: One Time for 1 Occurrences starting 05/18 until 05/27/2019 Specific gravity of Urine [facility] Work Phone: Urinalysis, blood, qualitative [facility] Work Phone: Urine dipstick for glucose [facility] Work Phone: Urine dipstick for leukocyte esterase [facility] Work Phone: Urine dipstick for nitrite [facility] Work Phone: Urine dipstick for protein [facility] Work Phone: Urine examination [facility] Work Phone: Urine microscopy: epithelial cells [facility] Work Phone: Urine Microscopy: wh ite cells [facility] Work Phone: Urobilinogen [Presen ce] in Urine [facility] Work Phone: [facility] Immunizations Immunization Date Immunization Notes Care Provider Ellie palomino 11-14-2023 Covid (Spikevax) Dr. Howard barron MD Work Phone: [facility] 02-22-2023 influenza (aIIV4) vaccine, age 65+ yr, quadrivalent, PF (FLUAD QUAD) Selvin Felder MD Work Phone: [facility] Work Phone: 02-22-2023 influenza, injectabl e, quadrivalent, preservative free Dr. Howard Zimmerman Work Phone: [facility] 02-22-2023 respiratory syncytia l virus (RSV) vaccine, adjuvanted (AREXVY) Selvin Felder MD Work Phone: [facility] Work Phone: 02-22-2023 influenza virus vacc ine, unspecified formulation Selvin Felder MD Work Phone: [facility] 01-15-2023 tetanus toxoid, redu carlton diphtheria toxoid, and acellular pertussis vaccine, adsorbed Dr. Howard Zimmerman Work Phone: [facility] 10-20-2022 Covid Moderna Bivale nt Booster Dr. Howard Zimmerman MD Work Phone: [facility] 05-12-2022 tetanus toxoid, redu carlton diphtheria toxoid, and acellular pertussis vaccine, adsorbed Dr. Howard Zimmerman Work Phone: [facility] 09-14-2021 Covid (Moderna) Dr. Howard Zimmerman MD Work Phone: [facility] 04-06-2021 COVID-19 vaccine, fu ll dose (MODERNA) Sridevi Solo MD Work Phone: [facility] Work Phone: 02-03-2021 influenza, injectabl e, quadrivalent, contains preservative Sridevi Solo MD Work Phone: [facility] Work Phone: 02-03-2021 influenza, injectabl e, quadrivalent, preservative free Dr. Howard Zimmerman MD Work Phone: [facility] 08-13-2020 COVID-19 vaccine, fu ll dose (MODERNA) Sridevi Solo MD Work Phone: [facility] Work Phone: 07-16-2020 COVID-19 vaccine, fu ll dose (MODERNA) Sridevi Solo MD Work Phone: [facility] Work Phone: 02-10-2020 influenza, injectabl e, quadrivalent, contains preservative Sridevi Solo MD Work Phone: [facility] Work Phone: 02-10-2020 influenza, injectabl e, quadrivalent, preservative free Dr. Howard Zimmerman MD Work Phone: [facility] 08-06-2019 zoster vaccine recombinant Sridevi Solo MD Work Phone: [facility] Work Phone: 04-08-2019 zoster vaccine recombinant Sridevi Solo MD Work Phone: [facility] Work Phone: 02-20-2019 pneumococcal conjuga te vaccine, 13 valent Sridevi Solo MD Work Phone: [facility] Work Phone: 02-20-2019 Seasonal trivalent influenza vaccine, adjuvanted, preservative free Selvin Felder MD Work Phone: [facility] Work Phone: 03-21-2018 influenza, high dose seasonal, preservative-free Selvin Felder MD Work Phone: [facility] Work Phone: 03-05-2013 influenza, injectabl e, quadrivalent, preservative free Dr. Howard Zimmerman MD Work Phone: [facility] 03-05-2013 influenza, seasonal, injectable Selvin Felder MD Work Phone: [facility] Work Phone: 04-05-2012 influenza virus vacc ine, whole virus Selvin Felder MD Work Phone: [facility] Work Phone: 04-05-2012 influenza, injectabl e, quadrivalent, preservative free Dr. Howard Zimmerman MD Work Phone: [facility] 03-18-2012 influenza virus vacc ine, unspecified formulation Sridevi Solo MD Work Phone: [facility] 08-16-2011 haemophilus influenz ae type b vaccine, HbOC conjugate Sridevi Solo MD Work Phone: [facility] Work Phone: 08-03-2011 Meningococcal, MCV4, unspecified conjugate formulation(groups A, C, Y and W-135) Sridevi Solo MD Work Phone: [facility] Work Phone: 08-03-2011 pneumococcal polysaccharide vaccine, 23 valent Sridevi Solo MD Work Phone: [facility] Work Phone: 04-11-2010 pneumococcal polysaccharide vaccine, 23 valent Bart Brooks DO Work Phone: [facility] Work Phone: 03-25-2010 influenza virus vacc ine, whole virus Selvin Felder MD Work Phone: [facility] Work Phone: 03-25-2010 influenza, injectabl e, quadrivalent, preservative free Dr. Howard Zimmerman MD Work Phone: [facility] 06-02-2009 novel influenza-H1N1 -09, preservative-free, injectable Sridevi Solo MD Work Phone: [facility] Work Phone: 04-16-2007 influenza virus vacc ine, whole virus Selvin Felder MD Work Phone: [facility] Work Phone: 04-16-2007 influenza, injectabl e, quadrivalent, preservative free Dr. Howard Zimmerman MD Work Phone: [facility] Payers Date Payer Category Payer Self-pay [id number] 2021 Medicare AETNA MEDICARE A ETNA MEDICARE PPO [id number] 2021-Present [phone] [address] [place] [address] [facility] [id number] 2021 Medicare (Managed Care) [place] [id number] 2019 Medicare AETNA MEDICARE A ETNA MEDICARE-ADVANTAGE PPO [id number] 2019-Present [address] [place] [address] Medicare [id number] 2009 Medicare [id number] 2009 Private Health Insurance [id number] Unknown [id number] 2.16.840.1.146276.3.579.2. 462 Unknown [id number] 2.16.840.1.067594.3.579.2. 462 Unknown [id number] 2.16.840.1.508698.3.579.2. 462 Unknown [id number] 2.16.840.1.756604.3.579.2. 462 Unknown [id number] 2.16.840.1.400807.3.579.2. 462 Unknown [id number] 2.16.840.1.915059.3.579.2. 462 Unknown [id number] 2.16.840.1.891980.3.579.2. 462 Unknown [id number] 2.16.840.1.896149.3.579.2. 462 Unknown [id number] 2.16.840.1.031946.3.579.2. 462 Unknown [id number] 2.16840.1.669226.3.579.2. 462 Unknown [id number] 2.16.840.1.891564.3.579.2. 462 Unknown [id number] 2.16840.1.306307.3.579.2. 462 Unknown [id number] 2.16.840.1.333490.3.579.2. 462 Unknown [id number] 2.16840.1.388242.3.579.2. 462 Unknown [id number] 2.16.840.1.318026.3.579.2. 462 Unknown [id number] 2.16.840.1.780689.3.579.2. 462 Unknown [id number] 2.16.840.1.609706.3.579.2. 462 Unknown [id number] 2.16.840.1.430292.3.579.2. 462 Unknown [id number] 2.16.840.1.753159.3.579.2. 462 Unknown [id number] 2.16.840.1.249575.3.579.2. 462 Unknown [id number] 2.16.840.1.974492.3.579.2. 462 Unknown [id number] 2.16.840.1.733932.3.579.2. 462 Unknown [id number] 2.16.840.1.961269.3.579.2. 462 Unknown [id number] 2.16.840.1.491416.3.579.2. 462 Unknown [id number] 2.16.840.1.112167.3.579.2. 462 Unknown [id number] 2.16.840.1.856703.3.579.2. 462 Unknown [id number] 2.16.840.1.301446.3.579.2. 462 Unknown [id number] Unknown [id number] 462 Unknown [id number] 462 Unknown [id number] 462 Unknown [id number] 462 Unknown [id number] 462 Unknown [id number] 462 Social History Date Type Detail Facility Start: 2019 End: 05-14-2024 Tobacco smoking status MIIS Never smoker [facility] Start: 2019 End: 05-27-2019 [facility]: [facility] 1935 [facility] Start: 09-19-2021 End: 10-20-2024 Alcohol intake Current non-drinker of alcohol (finding) [facility] Start: 09-09-2021 End: 02-14-2022 Exposure to SARS-CoV-2 (event) Not sure [facility] Start: 11-23-2021 End: 01-15-2023 Tobacco smoking status NHIS Unknown if ever smoked [facility] Start: 11-08-2020 Homeless [facility] Start: 11-08-2020 Non-smoker [facility] Start: 1935 Sex Assigned At Female [facility] Start: 07-05-2022 Tobacco use and exposure Smokeless tobacco non-user [facility] Start: 02-13-2023 End: 10-20-2024 History of Social function [facility] Start: 02-13-2023 End: 10-20-2024 Tobacco use panel [facility] Adult Depression Screening Assessment 0 [facility] Start: 09-18-2024 End: 10-03-2024 Sex Female (finding) [facility] Medical Equipment Procedure Code Equipment Code Equipment Origin al Text Equipment Identifier Dates Primary uncemented hemiarthroplasty of hip Orthopaedic cement, non-antimicrobial ()[id number] FDA Start: 12-23-2023 Primary uncemented hemiarthroplasty of hip ([id number]) Metallic femoral head prosthesis ()[id number] FDA Start: 12-23-2023 Primary uncemented hemiarthroplasty of hip ([id number]) Orthopaedic cement spacer ()[id number] FDA Start: 12-23-2023 Primary uncemented hemiarthroplasty of hip ([id number]) Bipolar femoral head outer component, hemiarthroplasty ()[id number] FDA Start: 12-23-2023 Primary uncemented hemiarthroplasty of hip ([id number]) Coated hip femur prosthesis, modular ()[id number] FDA Start: 12-23-2023 Primary uncemented hemiarthroplasty of hip Orthopaedic cement, antimicrobial ()[id number] FDA Start: 12-23-2023 Goals Date Patient Goal Desired Activity /State Functional Status Date Assessment Result Facility 10-04-2023 Functional status Ambulates [facility] Work Phone: 09-14-2023 Functional status [facility] Work Phone: 06-29-2023 Functional status [facility] Work Phone: 01-16-2023 Functional status [facility] Work Phone: 10-07-2021 Functional Status OBJECTIVE Posture: WNL Gait: amb with large step length and arm swing, no AD Transfers: able to perform sit to stand with no UE support Coordination: hand gestures, toe tapping, arm rolls - symmetyrical, no abnormalties AROM: WNL PROM: WNL MMT: grossly 4+/5 except hip adductors 4/5 and bilat hamstrings 4/5 Static Balancer strength L: 45 lbs - pt is left hand dominant Static Balancer strength R: 30 lb TUG- 8 seconds Gan out of 56 Activity-Specific Balance Confidence Scale (ABC): 87% [facility] 11-23-2014 Are you deaf, or do you have serious difficulty hearing Yes 11/23/2014 8:52 AM Magaly Kim Ma, MA Yes [facility] 11-23-2014 Are you blind, or do you have serious difficulty seeing, even when wearing glasses No 11/23/2014 8:52 AM Magaly Kim Ma, MA No [facility] 11-23-2014 Do you have serious difficulty walking or climbing stairs No 11/23/2014 8:52 AM Magaly Kim Ma, MA No [facility] 11-23-2014 Do you have difficul ty dressing or bathing No 11/23/2014 8:52 AM Magaly Kim Ma, MA No [facility] 11-23-2014 Because of a physica l, mental, or emotional condition, do you have difficulty doing errands alone such as visiting a physician's office or shopping No 11/23/2014 8:52 AM EDT Magaly Dodson Ma, MA [facility] Mental Status Date Assessment Result Facility 10-04-2023 Cognitive function Voice/Name [facility] Work Phone: 09-26-2023 Cognitive function Appropriate;Cooperativ e [facility] Work Phone: 09-14-2023 Cognitive function Voice/Name [facility] Work Phone: 09-08-2023 Cognitive function Level Of Cons ciousness Drowsy [facility] Work Phone: 06-29-2023 Cognitive function Voice/Name [facility] Work Phone: 06-28-2023 Cognitive function Voice/Name [facility] Work Phone: 01-16-2023 Cognitive function Voice/Name [facility] Work Phone: 11-23-2014 Because of a physica l, mental, or emotional condition, do you have serious difficulty concentrating, remembering, or making decisions No 11/23/2014 8:52 AM EDT Magaly Dodson Ma, MA No [facility] Clinical Notes 05-27-2019 to 10-20-2024 Selvin Felder MD - 10/20/2024 11:36 AM EDTPatient InstructionsPatient InstructionsAppSelvin soares MD - 04/21/2024 11:22 AM ESTTelephone Encounter - Maria Eugenia Virgen MA - 04/21/2024 11:02 AM EST Note Date & Type Note Facility 10-20-2024 Note HNO ID: [id number] Author: SELVIN FELDER MD Service: ? Author Type: Physician Type: Progress Notes Filed: 10/20/2024 11:40 Note Text: [facility] - FOLLOW UP EVALUATION Primary Movement Disorders Neurologist: Selvin Felder MD Primary Movement Disorders TONE: Not yet assigned Recording using Fit&Color software for draft documentation of the visit was discussed with the patient/authorized direct sales representative; all questions welcomed and answered. Patient/authorized direct sales representative agreed to proceed Howard Zimmerman MD [address] [address] Dear Howard Zimmerman MD: I had the [...] on the side of the bed to "get her bearings." She describes this sensation as a potential [...] endorse any fluid restrictions advised by a bus girl. She reports persistent fatigue, stating, "I just don't feel like I want to do anything." She believes she sleeps well at night [...] and mental health (more content not included)... [facility] 10-20-2024 History of Presen t illness Narrative [facility] - FOLLOW UP EVALUATION Primary Movement Disorders Neurologist: Selvin Felder MD Primary Movement Disorders TONE: Not yet assigned Recording using Fit&Color software for draft documentation of the visit was discussed with the patient/authorized direct sales representative; all questions welcomed and answered. Patient/authorized direct sales representative agreed to proceed Howard Zimmerman MD [address] [facility] [address] [facility] [address] Dear Howard Zimmerman MD: I had the [...] on the side of the bed to "get her bearings." She describes this sensation as a potential [...] endorse any fluid restrictions advised by a bus girl. She reports persistent fatigue, stating, "I just don't feel like I want to do anything." She believes she sleeps well at night [...] or around: 04/22/25 Level of service : 40639 ( 30-39 min). Time spent 34 min on the day of service, which included preparing to see the patient, ddkb-dc-ntkb patient care, completing clinical documentation, performing a medically appropriate examination, and counseling and educating the patient/family/caregiver. Thank you for allowing me to be part of the clinical care of this patient! I look forward to continued participation in the patient s care with you. Please do not hesitate to call with any questions. Sincerely, Selvin Felder MD documented in this encounter [facility] 10-20-2024 Instructions Selvin Felder MD - 10/20/2024 [...] or you can send a message through [employer]. You can also now schedule and select appointments through [employer]. Selvin Felder MD documented in this encounter [facility] 04-21-2024 Instructions Selvin Felder MD - 04/21/2024 [...] or you can send a message through [employer]. You can also now schedule and select appointments through [employer]. Selvin Felder MD documented in this encounter [facility] 04-21-2024 Note HNO ID: [id number] Author: SELVIN FELDER MD Service: ? Author Type: Physician Type: Progress Notes Filed: 04/21/2024 19:56 Note Text: [facility] - FOLLOW UP EVALUATION Howard Zimmerman MD [address] [facility] [address] [facility] [address] I had the pleasure of seeing Ms. 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 [facility] 04-21-2024 History of Presen t illness Narrative [facility] - FOLLOW UP EVALUATION Howard Zimmerman MD [address] [facility] [address] [facility] [address] I had the pleasure of seeing Ms. 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 Time spent 34 min on the day of service, which included preparing to see the patient, djxx-cp-ldlx patient care, completing clinical documentation, performing a [...] Selvin Felder MD documented in this encounter [facility] 04-21-2024 Telephone encounter Note Checked james patient not present at time of visit [facility] 04-21-2024 Miscellaneous Notes Checked james patient not present at time of visit documented in this encounter [facility] 10-18-2023 Instructions Selvin Felder MD - 10/18/2023 [...] please feel free to send me a [employer] message or contact the office - Continue PT, exercise - Movement Disorders Medication Schedule: Medications 8a 1p 6p Sinemet 25/100 2 2 2 Return at or around: 04/19/24 If there are any concerns before your next visit, please call or you can send a message through [employer]. You can also now schedule and select appointments through [employer]. Selvin Felder MD documented in this encounter [facility] 10-18-2023 History of Presen t illness Narrative [facility] - FOLLOW UP EVALUATION No referring provider defined for this encounter. Howard Zimmerman MD [address] [facility] [address] [facility] [address] I had the pleasure of seeing Ms. [...] please feel free to send me a DermLink message or contact the office - PT - Interval History: Still off balance. PT Helps. Has been fairly consistent with exercise. Since last hospitalized she was in the hospital and went to rehab. Just moved to [place]. Getting PT now at [place]. Biting tongue if asleep or awake, reading. [...] Objective Vital Signs: Ht 154.9 cm (5' 1") Wt 43.7 kg (96 lb 5.5 oz) SpO2 95% BMI 18.20 kg/m Orthostatic Vitals: Sitting: BP 96/58 Pulse 63 Standing: BP 83/57 Pulse 81 Weight: 43.7 kg (96 lb 5.5 oz) Height: 154.9 cm (5' 1") No LMP recorded. Patient is postmenopausal. Body [...] please feel free to send me a DermLink message or contact the office - It [...] or around: 04/19/24 Level of service : 06012 ( 30-39 min). Time spent 33 min on the day of service, which included preparing to see the patient, [place]-wfac patient care, completing clinical documentation, performing a medically appropriate examination, and counseling and educating the patient/family/caregiver. Thank you for allowing me to be part of the clinical care of this patient! I look forward to continued participation in the patient s care with you. Please do not hesitate to call with any questions. Sincerely, Selvin Felder MD documented in this encounter [facility] 10-03-2023 Discharge summary Note Date/Time October 03, 2023 7:40am [facility] Medical Records Department [address] [place] [address] Discharge Summary 10/03/23 0737 MR#: [id number] Acct: [id number] Name: KAYLENE HAYNES Rep #:[id number] : 1935 88 From: Howard Zimmerman MD PCP: Dr. Howard Zimmerman MD Status:ADM I N Location: TCU [place] [address] Providers Date of Admission: 09/14/23 Primary Care [...] she always tells me no. Discharge to [facility] 10/04/2023, [facility] PT/OT/ST. Physical Exam Const alert General [...] and Uncontrolled pain Additional Instructions: Discharge to [facility] 10/04/2023, [facility] PT/OT/ST. Please Follow Up With: [facility] Cardiology When: As scheduled. Meaningful Use Info Meaningful Use Diagnoses (Choose all that apply): None applicable Discharge Plan Admission Admit Date/Time: 09/14/23 15:33 Primary Reason for Your Visit: Debility. Attending Provider: Howard Zimmerman Chi Primary Care Provider: Howard Zimmerman Chi Instructions Additional Instructions / Restrictions: Discharge to [facility] 10/04/2023, [facility] PT/OT/ST. Discharge Orders/Prescriptions Prescriptions: New ascorbic [...] on 10/03/23 at 1731 Addendum Discharge to [facility] 10/04/2023, Outpatient PT/OT/ST. 10/03/23 1731<Electronically signed by Howard Zimmerman MD> Cosigner Signature (if applicable): cc: Dr. Howard Zimmerman MD ~* Signed [facility] Work Phone: 1(837) 831-517604-01-2024 Progress note Author Howard Zimmerman [facility] September 17, 2023 5:09pm Note Date/Time September 17, 2023 11:4 5am [facility] Medical Records Department [address] [place] [address] Progress Note - Pharmacy 09/17/23 1144 MR#: [id number] Acct: [id number] Name: KAYLENE HAYNES Rep #:[id number] : 1935 88 From: Antonia Woodson PCP: Dr. Howard Zimmerman MD Status:ADM I N Location: [place] [address] Documented by User: Antonia Christian 09/17/23 16:49 TCU RX Drug Regimen Review Subjective/Objective Subjective/Objective: Subjective: 88 YOF presents to [facility] ED 09/08/23 due to fall with diagnosis [...] 5 Mg Tablet PO 10 mg TIDCM ARIA Administration Multivitamins 1 tablet 09/15/23 08:00 09/16/23 08:30 Multivitamins,Therapeutic Tablet PO 1 tablet DAILYCM ARIA Administration Non-Formulary Medication 1 drp 09/16/23 22:00 09/16/23 22:42 Vital Tears EACH EYE 1 drp QHS ARIA Administration Nutritional Formula (Lactose Free) 120 ml 09/15/23 07:45 09/17/23 09:38 Ensure Plus High Protein 120 Ml Liquid PO Not Given TIDCM [facility] Prochlorperazine Maleate 5 mg 09/17/23 07:51 09/17/23 08:20 Prochlorperazine 5 Mg Tablet PO 5 mg Q6H PRN PRN Administration NAUSEA/VOMITING Risperidone 0.125 mg 09/14/23 22:00 09/16/23 21:31 Risperidone 0.25 Mg Tablet PO 09/21/23 22:01 0.125 mg QHS ARIA Administration Protocol Senna/Docusate Sodium 1 tablet 09/14/23 [...] User: Dr. Howard Zimmerman MD 09/17/23 17:09 [facility] RX Drug Regimen Review Provider Comments Provider responsibility Provider Comments to Recommendations by Pharmacy: Agree 09/17/23 164 <Electronically signed by Antonia Christian> Antonia Christian Cosigner Signature (if applicable): 09/17/23 1709 <Electronically signed by Howard Zimmerman MD> CC: ~ Signed [facility] Work Phone: 1(856) 179-118503-29-2024 History and physical note Author Howard Erasmo [facility] September 14, 2023 6:10pm Note Date/Time September 14, 2023 6:0 4pm [facility] Medical Records Department [address] [place] [id number] History & Physical Exam 09/14/23 1755 MR#: [id number] Acct: [id number] Name: KAYLENE HAYNES LY Rep #:[id number] : 1935 88 From: Howard Zimmerman MD PCP: Dr. Howard Zimmerman MD Status:ADM I N Location: [facility] TCU13-1 HPI - General General Date of Admission: 09/14/23 Date of Service: 09/14/23 Chief Complaint: Here for rehabilitation. HPI Narrative 09/08/2023 KAYLENE HAYNES, is a 88 Female who presents to [facility] ED with syncope. Found unconscious on commode, unresponsive. Found by son, not talking in AM for several months, thought progression of Parkinson Disease. Fell 2 days ago, hurt right hip. Labs okay, EKG okay. X-ray right hip negative, CT brain negative, CT cervical spine negative, Chest X-ray negative. 09/08/2023 Admit to [facility]. PT/OT for Debility. 09/09/2023 UA negative, WBC [...] discharge home alone or possibly to [place]. [facility] Medical History (Updated 09/14/23 @ 18:02 by [...] applicable): CC: Dr. Howard Zimmerman MD~ Signed [facility] Work Phone: 1(212) 897-960403-29-2024 Discharge summary Author Maame Pinon [facility] September 14, 2023 11:51am Note Date/Time September 14, 2023 11: 51am [facility] Medical Records Department [address] [place] [address] Transfer to [facility] Care MR#: [id number] Acct: [id number] Name: KAYLENE HAYNES Rep #:[id number] : 1935 88 From: Maame Pinon DO PCP: Dr. Howard Zimmerman MD Status:ADM I NO Certification of patient admission REQUIRED AT TIME OF ADMISSION. I CERTIFY THAT POST-HOSPITAL ECF SERVICES ARE REQUIRED TO BE GIVEN ON AN IN-PATIENT BASIS BECAUSE OF THE ABOVE NAMED PATIENT'S NEED FOR RETIREMENT CARE ON A CONTINUING BASIS FOR THE CONDITION(S) FOR WHICH HE/SHE WAS RECEIVINGIN-PATIENT HOSPITAL SERVICES PRIOR TO HIS/HER TRANSFER TO THE ECF. 09/14/23 1151<Electronically signed by Maame Pinon DO> Diet Diet Order/Speech Therapy: 09/08/23 14:41 Diet: Regular - General Food consistency:: Regular Liquid Consistency:: Regular/Thin Routine Orders/Code Status Suppository Frequency: Daily PRN O2 Frequency: PRN Keep PO Greater than or Equal to (%): 89 Routine Lab Work: CBC (As needed) and BMP (As needed) Code Status: DNRCC-A (No intubation) Wound(s) right grier: Wound Type: Abrasion Suggestions for Active Care [...] Kamara; Jonathon Rodríguez; Mallika Pinon; Roopa Tolbert Instructions Patient Instructions: ED Fainting, Uncertain Cause [...] Marly Ochoa DO; Roopa Tolbert MD ~ [facility] Work Phone: 1(256) 911-905603-29-2024 Discharge summary Author Maame Pinon [facility] September 14, 2023 1:41pm Note Date/Time September 14, 2023 11: 51am [facility] Medical Records Department [address] [place] [address] Discharge Summary 09/14/23 1151 MR#: [id number] Acct: [id number] Name: KAYLENE HAYNES Rep #:[id number] : 1935 88 From: Maame Pinon DO PCP: Dr. Howard Zimmerman MD Status:ADM I NO Location: [place]3 BR126-2 Providers Date of Admission: 09/08/23 Date of [...] who presented to the emergency department at [facility] on 09/08/2023 after a fall. She [...] risperidone at night to help with her ing as it was a significant issue early [...] Benson; Isiah Kelly; Vincent Suresh; Ruy Sun; Luannedavid Ghosh; John Quesada; Pamela [...] in before D/C Order can be placed): Fdc Facility Charges/Coding Visit Charges Inpatient E&M: 77626 SNF Disch >30 Min 09/14/23 1341 <Electronically signed by Maame Pinon DO> Cosigner Signature (if applicable): CC: Dr. Maame Pinon DO; Dr. Howard Zimmerman MD~ Signed [facility] Work Phone: 1(383) 729-225603-28-2024 Progress note Author Maame Pinon [facility] September 13, 2023 4:24pm Note Date/Time September 13, 2023 4:2 4pm [facility] Medical Records Department [address] [place] [address] Progress Note - Hospitalist 09/13/23 1622 MR#: [id number] Acct: [id number] Name: KAYLENE HAYNES Rep #:[id number] : 1935 88 From: Maame Pinon DO PCP: Dr. Howard Zimmerman MD Status:ADM I NO Location: [place] QU449-2 Reason for Visit Reason for Visit: Weakness/Debility Subjective Subjective No issues overnight. Patient is very pleasantly awaiting pre-CERT for half-way placement. Objective Data Objective Data Vital Signs: [...] pre-CERT from insurance company for discharge to senior care facility for ongoing rehab services. Charges/Coding Visit Charges Inpatient E&M: 28517 Subs Hosp L1 09/13/23 1624 <Electronically signed by Maame Pinon DO> Cosigner Signature (if applicable): CC: ~ Signed [facility] Work Phone: 1(334) 910-862603-27-2024 Progress note Author Maame Pinon [facility] September 12, 2023 4:49pm Note Date/Time September 12, 2023 4:4 6pm [facility] Medical Records Department [address] [place] [address] Progress Note - Hospitalist 09/12/23 1644 MR#: [id number] Acct: [id number] Name: KAYLENE HAYNES Rep #:[id number] : 1935 88 From: Maame Pinon DO PCP: Dr. Howard Zimmerman MD Status:ADM I NO Location: [place]3 ML997-7 Reason for Visit Reason for Visit: Debility/weakness [...] pre-CERT from insurance company for discharge to senior care facility for ongoing rehab services. Charges/Coding Visit Charges Inpatient E&M: 39300 Subs Hosp L1 09/12/23 6353 <Electronically signed by Maame Pinon DO> Cosigner Signature (if applicable): CC: ~ Signed [facility] Work Phone: 1(376) 177-320103-26-2024 Progress note Author Maame Pinon [facility] September 11, 2023 4:15pm Note Date/Time September 11, 2023 4:1 5pm [facility] Medical Records Department [address] [place] [address] Progress Note - Hospitalist 09/11/23 1610 MR#: [id number] Acct: [id number] Name: KAYELNE HAYNES LY Rep #:[id number] : 1935 88 From: Maame Pinon DO PCP: Dr. Howard Zimmerman MD Status:ADM I NO Location: [place] AR696-1 Reason for Visit Reason for Visit: Debility/weakness [...] % (Auto) 51.1, Lymph % (Auto) 38.3, Bamberg% (Auto) 9.0, Eos % (Auto) 1.0, Baso [...] no intubation Charges/Coding Visit Charges Inpatient E&M: 78587 Subs Hosp L2 09/11/23 1615 <Electronically signed by Maame Pinon DO> Cosigner Signature (if applicable): CC: ~ Signed [facility] Work Phone: 1(175) 240-497703-26-2024 Consult note Author Eri Interiano [facility] September 11, 2023 3:27pm Note Date/Time September 11, 2023 2:3 8pm [facility] Medical Records Department [address] [place] [address] Consultation - Neurology 09/11/23 1435 MR#: [id number] Acct: [id number] Name: KAYLENE HAYNES Rep #:[id number] : 1935 88 From: Eri Interiano MD PCP: Dr. Howard Zimmerman MD Status:ADM I NO Location: [place] [address] Assessment and Plan: Neuro Assessment/Plan KAYLENE HAYNES [...] No signficant side effects from the medication. [facility] Medical History (Updated 09/10/23 @ 16:50 by [...] normal except as noted Coordination / Balance: uikjwf-pv-srxx test normal, gbja-ie-yvqo test normal andRomberg test negative Speech: speech normal Sensory Exam: double simultaneous stimulation for sensation normal Motor Exam: strength 5/5 throughout and muscle tone normal throughout Coordination: vtkebu-py-lvbv test normal and sick-vs-ftgd test normal Pupil Exam: Normal Pupillary Reactivity/Response: [...] % (Auto) 51.1, Lymph % (Auto) 38.3, Bamberg% (Auto) 9.0, Eos % (Auto) 1.0, Baso [...] 5,000 Unit/Ml Vial SC 5,000 unit Q12 ARAI Administration Hydralazine HCl 10 mg 09/09/23 22:21 09/09/23 22:42 Hydralazine 20 Mg/Ml Vial IV 10 mg Q4H PRN PRN Administration SBP > 160 Protocol Sodium Chloride 250 mls @ 15 mls/hr 09/08/23 14:55 IV .[id number] PRN Additional IVPB Infusion Sodium Chloride 250 mls @ 15 mls/hr 09/08/23 14:55 IV .[id number] PRN Saline Flush Nutritional Formula (Lactose Free) [...] Marly Ochoa DO; Roopa Tolbert MD~ Signed [facility] Work Phone: 1(630) 641-832503-25-2024 Progress note Author Maame Pinon [facility] September 10, 2023 4:53pm Note Date/Time September 10, 2023 4:5 3pm [facility] Medical Records Department [address] [place] [address] Progress Note - Hospitalist 09/10/23 1645 MR#: [id number] Acct: [id number] Name: KAYLENE HAYNES Rep #:[id number] : 1935 88 From: Maame Pinon DO PCP: Dr. Howard Zimemrman MD Status:ADM I NO Location: FL3 TH643-1 Reason for Visit Reason for Visit: Debility/weakness Subjective Subjective Patient is a 88-year-old white female who presented to emergency department [facility] on 09/07/2022 after fall. She was [...] 37.1 L, Lymph % (Auto) 48.5 H, Bamberg % (Auto) 9.1, Eos % (Auto) 2.8, [...] no intubation Charges/Coding Visit Charges Inpatient E&M: 83372 Subs Hosp L2 09/10/23 1653 <Electronically signed by Maame Pinon DO> Cosigner Signature (if applicable): CC: ~ Signed [facility] Work Phone: 1(274) 324-809303-25-2024 Progress note Author Daisy Mack [facility] September 09, 2023 11:52pm Note Date/Time September 09, 2023 11: 52pm [facility] Medical Records Department [address] [place] [address] Progress Note - Hospitalist 09/09/232351 MR#: [id number] Acct: [id number] Name: KAYLENE HAYNES LY Rep #:[id number] : 1935 88 From: Daisy Mack MD PCP: Dr. Howard Zimmerman MD Status:ADM I NO Location: [place] 160724-1 Hospitalist Note Patient with mild agitation, attempting to get out of bed, underlying Parkinson's disease with dementia, will dose with low dose seroquel x 1 and if assists may consider q HS if needed/appropriate. 09/09/232351 <Electronically signed by Daisy Mack MD> Cosigner Signature (if applicable): CC: ~ Signed [facility] Work Phone: 1(281) 927-653403-24-2024 Progress note Author Gonzalez Garza [facility] September 09, 2023 4:20pm Note Date/Time September 09, 2023 4:1 4pm [facility] Medical Records Department [address] [place] [address] Progress Note - Hospitalist 09/09/23 1611 MR#: [id number] Acct: [id number] Name: KAYLENE HAYNES Rep #:[id number] : 1935 88 From: Gonzalez Garza DO PCP: Dr. Howard Zimmerman MD Status:ADM I NO Location: [facility] SW319-2 Reason for Visit Reason for Visit: Diagnoses Parkinson's disease (09/08/23) Subjective Subjective Patient was seen and examined today, I talked to her briefly about going to an extended care facility for short-term rehab services, she states she "vaguely remembers the conversation". Patient is alert and answers simple questions [...] Clarity Clear, Urine pH 6.5, Ur Specific Gerry 1.020, Urine Protein 15 H, Urine Glucose [...] % (Auto) 53.3, Lymph % (Auto) 36.3, Bamberg % (Auto) 6.9, Eos % (Auto) 1.1, [...] she will need temporary placement in a senior care facility #2 Parkinson's disease-complicates care, medical course, [...] 25 minutes Charges/Coding Visit Charges Inpatient E&M: 58190 Subs Hosp L1 09/09/23 1620 <Electronically signed by Gonzalez Garza DO> Cosigner Signature (if applicable): CC: ~ Signed [facility] Work Phone: 1(751) 657-437503-23-2024 History and physical note Author Gonzalez Garza [facility] September 08, 2023 4:00pm Note Date/Time September 08, 2023 3:4 8pm [facility] Medical Records Department [address] [place] [address] H&P Exam - Hospitalist 09/08/23 1546 MR#: [id number] Acct: [id number] Name: WAIKAYLENE LY Rep #:[id number] : 1935 88 From: Gonzalez Garza DO PCP: Dr. oHward Zimmerman MD Status:ADM I NO Location: [place]3 SH750-7 HPI - General General Date of Admission: 09/08/23 Date of Service: 09/08/23 Chief Complaint: Debility, weakness HPI Narrative KAYLENE HAYNES, is a 88 F who presents to the emergency room at [facility] after being brought in by squad, [...] will be placed in observation status on [facility] 3, she will be seen by PT and OT, she will need temporary placement in a senior care facility, I talked to the family today they prefer TCU if possible. I talked with delinquency prevention social worker about it also. [facility] Medical History CKD (chronic kidney disease), stage [...] % (Auto) 51.3, Lymph % (Auto) 35.9, Bamberg% (Auto) 7.5, Eos % (Auto) 2.5, Baso [...] Parkinson's disease-patient wasplaced in observation status on [facility] 3, she will be seen by PT and OT, she will need temporary placement in a senior care facility for short-term rehabservices. Nursing states that [...] 55 minutes Charges/Coding Visit Charges Inpatient E&M: 76948 Init Hosp L2 09/08/23 1600 <Electronically signed by Gonzalez Garza DO> Cosigner Signature (if applicable): CC: Dr. Gonzalez Garza DO; Dr. Howard Zimmerman MD~ Signed [facility] Work Phone: 1(314) 460-293103-23-2024 Discharge summary Author Germán Benson [facility] September 08, 2023 1:40pm Note Date/Time September 08, 2023 10: 23am [facility] Medical Records Department [address] [place] [address] Emergency Department Summary 09/08/23 MR#: [id number] Acct: [id number] Name: KAYLENE HAYNES Rep #:[id number] : 1935 88 From: Germán Benson DO PCP: Dr. Howard Zimmerman MD Status:ADM I NO Location: MS3 JT236-0 [facility] History of Present Illness Chief Complaint: Syncope [...] are unsure if she hit her head. [facility] Medical History CKD (chronic kidney disease), stage [...] % (Auto) 51.3 Lymph % (Auto) 35.9 Bamberg % (Auto) 7.5 Eos % (Auto) 2.5 [...] your Primary Care Provider. Call [facility] ([phone]) or report to the closest Emergency Room. Call 911 if necessary. 09/08/23 1340 <Electronically signed by Germán Benson DO> Cosigner Signature (if applicable): CC: Dr. Howard Zimmerman MD ~ Signed [facility] Work Phone: 1(889) 604-755703-23-2024 Discharge summary Author Germán Benson [facility] September 08, 2023 1:40pm Note Date/Time September 08, 2023 10: 23am [facility] Medical Records Department [address] [place] [address] Emergency Department Summary 09/08/23 MR#: [id number] Acct: [id number] Name: KAYLENE HAYNES LY Rep #:[id number] : 1935 88 From: Germán Benson DO PCP: Dr. Howard Zimmerman MD Status:ADM I NO Location: [place] [address] HPI History of Present Illness Chief Complaint: Syncope [...] are unsure if she hit her head. [facility] Medical History CKD (chronic kidney disease), stage [...] % (Auto) 51.3 Lymph % (Auto) 35.9 Bamberg % (Auto) 7.5 Eos % (Auto) 2.5 [...] your Primary Care Provider. Call [facility] ([phone]) or report to the closest Emergency Room. Call 911 if necessary. 09/08/23 1340 <Electronically signed by Germán Benson DO> Cosigner Signature (if applicable): CC: Dr. Howard Zimmerman MD ~ Signed [facility] Work Phone: 1(281) 484-199703-01-2024 History of Present illness Narrative* Bart Brooks DO - 08/17/2023 10:52 AM EST Diagnosis: 1) Lymphoproliferative disorder. HPI: The patient is a 88 yo female whom I saw in consultation at [facility] in 2006for pancytopenia following an [...] definite evidence of malignancy. PET done at 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 Received [address] [...] k/uL 6.51 (H) 6.98 (H) 6.43 (H) Bamberg% % 6.0 7.0 6.0 Abs Bamberg <0.87 k/uL 0.87 (H) 0.96 (H) 0.90 [...] (A) Few (A) Tear Drop Few Love [place] Bodies Occasional Occasional Occasional DTYPE Manual Manual [...] which included preparing to see the patient, dhng-nw-eoro patient care, completing clinical documentation, obtaining and/or reviewing separately obtained history, performing a medically appropriate examination, counseling and educating the pat ient/family/caregiver, ordering medications, tests, or procedures, communicating with other HCPs (not separately reported), and communicating results to the patient/family/caregiver. Bart Brooks DO documented in this encounterAdena Fayette [facility] Center02-12-2024 Miscellaneous Notes* Telephone Encounter - Selvin Felder [...] electronically to the patient's pharmacy. Erika Tobin, Polygraph Examiner III documented in this encounterAdena Fayette Medical Center01-12-2024 Consult note Author Freddy Solano [facility] June 29, 2023 2:53pm Note Date/Time June 29, 2023 2 :53pm [facility] Medical Records Department [address] [place] [address] Counseling Note - Pharmacy 06/29/23 1453 MR#: [id number] Acct: [id number] Name: KAYLENE HAYNES Rep #:[id number] : 1935 88 From: Freddy Solano PCP: Dr. Howard Zimmerman MD Status:ADM I NO Y Location: [place] [address] Pharmacy [facility] has performed discharge medication reconciliation [...] 06/29/23 06/29/23 1453 <Electronically signed by Freddy Castillo r> Date _ Freddy Tafoya Signature (if applicable): Date CC: ~ Signed [facility] Work Phone: 1(721) 494-220201-12-2024 Discharge summary Author Avel Massey [facility] June 29, 2023 1:46pm Note Date/Time June 29, 2023 1 :45pm [facility] Medical Records Department [address] [place] [address] Instructions for Home/Discharge Instructions 06/29/23 0940 MR#: [id number] Acct: [id number] Name: KAYLENE HAYNES LY Rep #:[id number] : 1935 88 From: Avel Marquez PCP: [...] Interiano; Vincent Suresh; Alayna Valverde; Ruy Sun; Elian Stroud; John Quesada; Pamela [...] Recorder Preventi (Urgent) Timeframe: 1 Day Facility: [facility] - Location: Cardiovascular Services Ordered By: [...] Interiano DO; Roopa Tolbert MD ~ Signed [facility] Work Phone: 1(946) 245-563401-11-2024 Discharge summary Author Myrna Munguia [facility] June 28, 2023 2:51pm Note Date/Time June 28, 2023 1 :02pm [facility] Medical Records Department [address] [place] [address] Emergency Department Summary 06/28/23 MR#: [id number] Acct: [id number] Name: KAYLENE HAYNES Rep #:[id number] : 1935 88 From: Myrna Munguia MD [...] do seem to be improvingat this time. [facility] Medical History (Updated 06/28/23 @ 13:22 by [...] upon returning. Patient had been placed on satellite project site monitor. IV line initiated. Labwork obtained to [...] 33.4 L Lymph % (Auto) 53.0 H Bamberg % (Auto) 8.4 Eos % (Auto) 2.3 [...] Provider] - Disposition Disposition: Acute Care Hospital [facility] What to do if you have Problems For any increased pain, shortness of breath, bleeding, nausea or vomiting, chestpain, or any unexpected problems, contact your Primary Care Provider. Call [facility] ([phone]) or report to the closest Emergency Room. Call 911 if necessary. 06/28/23 1451 <Electronically signed by Myrna Munguia MD> Cosigner Signature (if applicable): CC: Dr. Howard Zimmerman MD ~ Signed [facility] Work Phone: 1(757) 729-746801-11-2024 Discharge summary Author Myrna Munguia [facility] June 28, 2023 2:51pm Note Date/Time June 28, 2023 1 :02pm [facility] Medical Records Department [address] [place] [address] Emergency Department Summary 06/28/23 MR#: [id number] Acct: [id number] Name: KAYLENE HAYNES LY Rep #:[id number] : 1935 88 From: Myrna Munguia MD [...] do seem to be improvingat this time. [facility] Medical History (Updated 06/28/23 @ 13:22 by [...] upon returning. Patient had been placed on satellite project site monitor. IV line initiated. Labwork obtained to [...] 33.4 L Lymph % (Auto) 53.0 H Bamberg % (Auto) 8.4 Eos % (Auto) 2.3 [...] Provider] - Disposition Disposition: Acute Care Hospital [facility] What to do if you have Problems For any increased pain, shortness of breath, bleeding, nausea or vomiting, chestpain, or any unexpected problems, contact your Primary Care Provider. Call [facility] ([phone]) or report to the closest Emergency Room. Call 911 if necessary. 06/28/23 145 <Electronically signed by Myrna Munguia MD> Cosigner Signature (if applicable): CC: Dr. Howard Zimmerman MD ~ Signed [facility] Work Phone: 1([phone]) 226-943501-11-2024 History and physical note Author Daisy Mack [facility] June 28, 2023 2:12pm Note Date/Time June 28, 2023 1 :31pm [facility] Medical Records Department [address] [place] [address] H&P Exam - Hospitalist 06/28/23 1330 MR#: [id number] Acct: [id number] Name: KAYLENE HAYNES Rep #:[id number] : 1935 88 From: Daisy Mack MD [...] who lives alone who presents to the [facility] ED on 06/28/23 with history of low [...] 4 extremities, no focal deficits, finger-nose and xjyp-yg-zwhm appropriate, equivocal Babinski, sensation appropriate, no further [...] 33.4 L, Lymph % (Auto) 53.0 H, Bamberg % (Auto) 8.4, Eos % (Auto) 2.3, [...] who lives alone who presents to the [facility] ED on 06/28/23 with history of low [...] patient does admit she sees Dr. Brooks [facility] oncology routinely suspect this is an ongoing [...] 16 minutes. Charges/Coding Visit Charges Inpatient E&M: 71892 Init Hosp L2 Procedures Hospitalists Procedures: 72974 Advncd Care Plan 30 Min 06/28/23 1412 <Electronically signed by Daisy Mack MD> Cosigner Signature (if applicable): CC: Dr. Daisy Mack MD; Dr. Howard Zimmerman MD~ Signed [facility] Work Phone: 1(398) 503-373101-11-2024 History and physical note Author Daisy Mack [facility] June 28, 2023 2:12pm Note Date/Time June 28, 2023 1 :31pm [facility] Medical Records Department [address] [place] [address] H&P Exam - Hospitalist 06/28/23 1330 MR#: [id number] Acct: [id number] Name: KAYLENE HAYNES Rep #:[id number] : 1935 88 From: Daisy Mack MD [...] who lives alone who presents to the [facility] ED on 06/28/23 with history of low [...] administered aspirin 325 mg p.o. x 1. [facility] Medical History CKD (chronic kidney disease), stage [...] 4 extremities, no focal deficits, finger-nose and qjui-ot-xijz appropriate, equivocal Babinski, sensation appropriate, no further [...] 33.4 L, Lymph % (Auto) 53.0 H, Bamberg % (Auto) 8.4, Eos % (Auto) 2.3, [...] who lives alone who presents to the [facility] ED on 06/28/23 with history of low [...] patient does admit she sees Dr. Brooks [facility] oncology routinely suspect this is an ongoing [...] 16 minutes. Charges/Coding Visit Charges Inpatient E&M: 22754 Init Hosp L2 Procedures Hospitalists Procedures: 58137 Advncd Care Plan 30 Min 06/28/23 1412 <Electronically signed by Daisy Mack MD> Cosigner Signature (if applicable): CC: Dr. Daisy Mack MD; Dr. Howard Zimmerman MD~ Signed [facility] Work Phone: 1(966) 286-982212-05-2023 Miscellaneous Notes* Telephone Encounter - Ayanna Garza [...] down Thick secretions (recent covid) Fluid intake "I am trying to drink a lot of water" Small glass of juice, water, and ensure [...] changing position slowly. * Telephone Encounter - Fariba Hyman - 05/18/2023 3:20 PM EST Pt called for Dr. Felder to make sure she's doing everything she should be doing for her PD. Pt stated the PD is "working on her" - [phone]. 04/04/23 FUV w/Dr. Felder 10/08/23 FUV w/Gerry Felder documented in this encounterAdena Fayette Medical Center10-18-2023 History of Present illness Narrative* Selvin Felder MD - 04/04/2023 4:48 PM EDT [facility] - FOLLOW UP EVALUATION Howard Zimmerman MD [address] [address] I had the pleasure of seeing Ms. [...] when walking sometimes. Plans on going to [facility] for PT. 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 Rapid alternating movement normal. Ggvn-ra-eyxc normal.Left: Wdwvoa-cr-vwba normal. Rapid alternating movement normal. Unlt-jd-hoiv normal. Gait Generally stable gait except for [...] appointment, pleasefeel free to send me a DermLink message or contact the office - PT [...] Sincerely, Selvin Felder MD documented in this encounterAdena Fayette Medical Center10-18-2023 Instructions* Patient Instructions* Selvin Felder MD - [...] appointment, pleasefeel free to send me a DermLink message or contact the office Movement Disorders Medication Schedule: Medications 8a 1p 6p Sinemet 25/100 2 2 2 Return in about 6 months (around 10/04/2023). If there are any concerns before your next visit, please call or you can send a message through [employer]. You can also now schedule and select appointments through [employer]. Selvin Felder MD Fatigue and Parkinson s [...] researchers studying fatigue. Flaco Valenzuela, Ph.D. at [facility] is studying Multi-modal Neuroimaging of Fatigue in [...] people with PD. Bishnu Christensen M.D. at [facility] is studying Remotely Supervised Transcranial Direct [...] more information and resources see [email or web address] [facility] is a Center of Excellence [...] maneuvers increase blood pressure. documented in this encounterAdena Fayette Medical Center08-31-2023 NoteHNO ID: [id number] Author: Tejal Willard, OLIVERIO Service: ? Author Type: Physical Therapist Type: Progress Notes Filed: 02/15/2023 9:59 AM Note Text: 02/15/2023 [facility] PHYSICAL THERAPY DISCONTINUANCE [...] or scheduled additional follow-up appointments. Tejal Willard, [facility]08-29-2023 History of Present illness Narrative* Bart Brooks, - 02/13/2023 12:08 PM EDT Diagnosis: 1) Lymphoproliferative disorder. HPI: The patient is a 87 yo female whom I saw in consultation at [facility] in 2006for pancytopenia following an [...] definite evidence of malignancy. PET done at 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 Received [address] [...] C (97.5 F), height 156 cm (5' 1.42"), weight 43.5 kg (96 lb), SpO2 97 [...] No jaundice or rash. No petechiae. 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 No focal motor [...] k/uL 8.64 (H) 6.98 (H) 6.43 (H) Bamberg% % 6 7.0 7.0 6.0 Abs [place]amberg <0.87 k/uL 0.75 1.08 (H) 0.96 (H) [...] Few (A) Tear Drop Few Few Love [place] Bodies Occasional Occasional DTYPE Manual Manual Realym% [...] which included preparing to see the patient, yzkc-nv-gpho patient care, completing clinical documentation, obtaining and/or reviewing separately obtained history, performing a medically appropriate examination, counseling and educating the pat ient/family/caregiver, communicating with other HCPs (not separately reported), and communicating results to the patient/family/caregiver. Bart Brooks DO documented in this encounterAdena Fayette Medical Center08-01-2023 Discharge summary Author Gonzalez Garza [facility] January 16, 2023 11:47am Note Date/Time January 16, 2023 11: 45am [facility] Medical Records Department [address] [place] [address] Instructions for Home/Discharge Instructions 01/16/23 1144 MR#: [id number] Acct: [id number] Name: KAYLENE HAYNES Rep #:[id number] : 1935 87 From: Gonzalez Garza DO [...] CC: Dr. Howard Zimmerman MD ~ Signed [facility] Work Phone: 1(311) 373-752607-31-2023 History and physical note Author [facility] January 15, 2023 8:10pm Note Date/Time January 15, 2023 7:58 pm [facility] Medical Records Department [address] [place] [address] H&P Exam - Hospitalist 01/15/231954 MR#: [id number] Acct: [id number] Name: KAYLENE HAYNES LY Rep #:[id number] : 1935 87 From: Gonzalez Garza DO PCP: Dr. Howard Zimmerman MD Status:ADM I NO Location: [place] [id number]- 1 HPI - General General Date of Admission: 01/15/23 Date of Service: 01/15/23 Chief Complaint: Presyncope, dysarthria HPI Narrative KAYLENE HAYNES, is a 87 F who presents to the emergency room at [facility] after sustaining a presyncopal episode in the parking lot at [facility] today. She was getting out of her [...] not had an echocardiogram here since 2020. [facility] Medical History Acute bronchitis, unspecified Acute sinusitis, [...] 01/15/23 16:52 RMA (Rec: 01/15/23 16:52 RMA [id number]) Nutrition Malnutrition Evidence of Malnutrition Exists Yes [...] diet with consistency alteration as indicated per SOLAR ENERGY SYSTEMS ENGINEER. Will continue 120mL ensure plus high protein [...] (Auto) 45.8 L, Lymph % (Auto) 40.9, Bamberg % (Auto) 9.2, Eos % (Auto) 1.3, [...] occlusion of the major arteries of the [place] or demonstrated aneurysm or hemodynamically [...] occlusion of the major arteries of the [place] or demonstrated aneurysm or hemodynamically [...] Signed: Melvin Diamond MD at 16:20 EDT , Echocardiogram 01/15/23 13:01 Interpretation Summary The [...] 55 minutes Charges/Coding Visit Charges Inpatient E&M: 57116 Init Hosp L2 01/15/232009 <Electronically signed by Gonzalez Garza DO> Cosigner Signature (if applicable): CC: Dr. Gonzalez Garza DO; Dr. Howard Zimmerman MD~ Signed [facility] Work Phone: 1(145) 706-856207-31-2023 Discharge summary Author Stephanie Gonzalez [facility] January 15, 2023 4:35pm Note Date/Time January 15, 2023 11:0 2am [facility] Medical Records Department [address] [place] [address] Emergency Department Summary 01/15/23 MR#: [id number] Acct: [id number] Name: KAYLENE HAYNES Rep #:[id number] : 1935 87 From: Stephanie Gonzalez DO PCP: Dr. Howard Zimmerman MD Status:ADM I NO Location: [address] 1 HPI History of Present Illness Chief Complaint: [...] She denies chest pain or abdominal pain. [facility] Medical History Acute bronchitis, unspecified Acute sinusitis, [...] (Auto) 45.8 L Lymph % (Auto) 40.9 Bamberg % (Auto) 9.2 Eos % (Auto) 1.3 [...] occlusion of the major arteries of the [place] or demonstrated aneurysm or hemodynamically [...] occlusion of the major arteries of the [place] or demonstrated aneurysm or hemodynamically [...] Parkinson's disease Disposition Disposition: Acute Care Hospital [facility] What to do if you have Problems For any increased pain, shortness of breath, bleeding, nausea or vomiting, chestpain, or any unexpected problems, contact your Primary Care Provider. Call [facility] ([phone]) or report to the closest Emergency Room. Call 911 if necessary. 01/15/23 1635 <Electronically signed by Stephanie Gonzalez DO> Cosigner Signature (if applicable): CC: Dr. Howard Zimmerman MD ~ Signed [facility] Work Phone: 1(395) 342-267106-05-2023 Miscellaneous Notes* Telephone Encounter - [facility] Darryl Mcdonough - 11/20/2022 3:29 PM EDT Patient called asking for EEG order to be faxed to [facility] diagnostic scheduling. Fax number [phone]. Order, demographics, and coverage faxed as requested. documented in this encounterAdena Fayette Medical Center04-10-2023 Discharge summary Author Marbella Doss [facility] September 25, 2022 2:57pm Note Date/Time September 19, 2022 1:42 pm [facility] Physical Therapy [facility] [address] [place] [address]. [address] [place] [address] / REHABILITATION SERVICES DISCHARGE SUMMARY MR#: [id number] Acct: [id number] Name: KAYLENE HAYNES Rep #: [id number] : 1935 87 From: Marbella Doss MP T Referring Dr.: OUT OF TOWN DOCTOR Status: REG RCR [facility] It has been my [...] please feel free to call me at [phone]. Thank you for the referral of thispatient. Sincerely, ROCHELLE Palafox Balance/Gait/Functional tests - Balance/Special Test Scores Functional Gait Assessment Score: 17 % Disability: 43.3400 Lower Extremity Functional Score: 57 <Electronically signed by Marbella Doss MPT> 09/25/22 9695 CC: Dr. Howard Zimmerman MD; SRIDEVI SOLO ~ Signed [facility] Work Phone: 1(763) 277-253802-28-2023 History of Present illness Narrative* Bart Brooks, - 08/15/2022 11:13 AM EST Diagnosis: 1) Lymphoproliferative disorder. HPI: The patient is a 86 yo female whom I saw in consultation at [facility] in 2006for pancytopenia following an [...] definite evidence of malignancy. PET done at 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 Received [address] [...] abdominal pain. Ventral hernia hasn't been symptomatic, "I haven't noticed it." No unusual bleeding or unexplained bruising. PMH, [...] temperature source Temporal, height 156.2 cm (5' 1.5"), weight 45.6 kg (100 lb 8 oz). [...] No jaundice or rash. No petechiae. 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 No focal motor [...] (H) 6.05 (H) 6.84 (H) 6.51 (H) B[place]berg% % 6.0 11.0 9.0 6.0 Abs [place] <0.87 k/uL 0.97 (H) 1.51 (H) 1.38 [...] Target Cells Few Few Few Few [place] Bodies Occasional Occasional DTYPE Manual ANC(includeSEG+BAND) k/uL [...] 3.3 cm. Stable when compared to CT 2013. -No clear indication for reimaging of the [...] care. Bart Brooks DO documented in this encounterAdena Fayette Medical Center02-01-2023 Progress note Author Rhoda Mercado [facility] July 19, 2022 12:14pm Note Date/Time July 19, 2022 1 2:14pm [facility] [address] [place] [address] Progress Note - Wound Care 07/19/22 1211 MR#: [id number] Acct: [id number] Name: KAYLENE HAYNES Rep #:[id number] : 1935 87 From: Rhoda Mercado NP [employer] GLASS INSTALLER-C PCP: Dr. Howard Zimmerman MD Status:REG R [...] Start: 07/19/22 09:47 Freq: Status: Active Protocol: WC.LOWWILLIAMT Activity Type Activity Date Activity User E-sign Co-sign Detail Recorded Client Recorded Date Recorded By Document 07/19/22 09:48 [facility] [id number] 07/19/22 09:55 [facility] 07/19/22 09:48 - Today's Visit Information Type of service Follow-up Visit (Physician/HI LO DRIVER ) Arrival Mode Ambulatory Transfer Assistance None [...] 09:48 [facility] [id number] 07/19/22 09:55 BM 07/19/22 09:48 Wound Center Nurse 1 #1- R GRIER -Combined with other wound No -Current Size [...] Calf (cm) 29.5 Right Ankle (cm) 17.8 WC - Nurse 2 - General Ulcer CM Notes Start: 07/19/22 09:47 Freq: Status: Active Protocol: Activity Type Activity Date Activity User E-sign Co-sign Detail Recorded Client Recorded Date Recorded By Document 07/19/22 10:03 MW [id number] 07/19/22 10:05 MW 07/19/22 10:03 Wound Center Nurse 2 #1- R GRIER -Time 10:03 -Correct Patient Yes -Correct Side, [...] Date Recorded By Document 07/19/22 10:05 MW [id number] 07/19/22 10:06 MW 07/19/22 10:05 Wound Care Center Nurse 3 #1- R GRIER -Ulcer Cleansing Rinsed/ Irrigated with Saline -Foul [...] unspecified 07/19/22 1214 <Electronically signed by Rhoda Mercado NP [employer]-C> Cosigner Signature (if applicable): CC: ~ Signed [facility] Work Phone: 1(923) 451-294001-31-2023 NoteHNO ID: [id number] Author: Tejal Willard PT Service: ? Author [...] of Care: created on 07/18/22 through 09/16/22 [employer] in home exercise program. Patient will demonstrate [...] Planned: 8 Planned Treatment Interventions: Therapeutic exercise (82538), Neuromuscular re-education (91913), Therapeutic activities (34751), Patient/Family/Caregiver Education, Gait Training (88274) PLAN FOR NEXT VISIT: pt would like [...] Retired Recreation / Current Exercise: [facility]week AND goes to Parkinsons group exercise class 2 days/week at [facility] Home Environment Patient Lives With: Self/Alone [...] / Alignment Posture: Forw (more content not included)...[facility] 07-18-2022 History of Present illness Narrative* Tejal Montse, PT - 07/18/2022 6:42 PM EST Episode [...] of Care: created on 07/18/22 through 09/16/22 [employer] in home exercise program. Patient will demonstrate [...] Planned: 8 Planned Treatment Interventions: Therapeutic exercise (72674), Neuromuscular re- education (77631), Therapeutic activities (85223), Patient/Family/Caregiver Education, Gait Training (76775) PLAN FOR NEXT VISIT: pt would like [...] Retired Recreation / Current Exercise: exercises at [employer] in [place] 3 days/week & goes to Parkinsons group exercise class 2 days/week at [facility] [place] Home Environment Patient Lives With: Self/Alone Home [...] to Stand Test : 17 sec (from 17" chair without UE assist) Timed Up and [...] 50 Tejal Willard PT documented in this encounterAdena Fayette Medical Center01-20-2023 Miscellaneous Notes* Telephone Encounter - Erika Jean [...] I did not relay message regarding the "full body jerks". * Telephone Encounter - Estrella Her RN - 07/07/2022 12:51 PM EST Message left for Kaylene to contact office to discuss symptom of biting tongue * Telephone Encounter - Sridevi Solo MD - 07/07/2022 10:54 AM EST As far as "whole body jerks" are concerned it is benign and I am not worried about that. As far as "biting the tongue" is concerned I would like to find out how often? Awake or sleep? How frequently? How severe is the tongue bite? Please, let me know. This note was created using dictation software. Please, excuse typographical errors. * Telephone Encounter - Erika Tobin [facility] - 07/06/2022 3:47 PM [...] how best to manage this. CALLBACK #: [phone] OK TO LEAVE MESSAGE: yes LAST FUV: yesterday with II documented in this encounterAdena Fayette Medical Center01-19-2023 Miscellaneous Notes* Telephone Encounter - Estrella Her RN - 07/06/2022 10:50 AM EST Clarification of C/L 25-100 mg dose was given to pharmacist per Dr. Solo's OV notes. 2 tablets by mouth TID at 8a, 1p & 6p. * Telephone Encounter - [facility] Darryl Mcdonough - 07/06/2022 9:30 AM EST [facility] pharmacy called asking for clarification of directions for Sinemet sent yesterday. Sig: "12 tablet 3 times a day" [phone] documented in this encounterAdena Fayette Medical Center01-18-2023 Instructions* Patient Instructions* Sridevi Solo MD - 07/05/2022 4:30 PM EST Please, increase carbidopa/levodopa 25/100 to 2 tablets at 8 AM, 1 PM and 6 PM Please, physical therapy reassessment Please, follow-up in 6 months documented in this encounterAdena Fayette Medical Center01-18-2023 History of Present illness Narrative* Sridevi Solo MD - 07/05/2022 4:22 PM EST [facility] - FOLLOW UP EVALUATION Howard Zimmerman MD [address] [address] I had the pleasure of seeing Ms. [...] Adult) Pulse 73 Ht 156.8 cm (5' 1.73") Wt 46.3 kg (102 lb) SpO2 95% BMI 18.82 kg/m Orthostatic Vitals: None for this encounter Weight: 46.3 kg (102 lb) Height: 156.8 cm (5' 1.73") No LMP recorded. Patient is postmenopausal. Body [...] or around: 01/02/23 Level of service : 43452 (40-54 min). Time spent 45 min on the day of service, which included preparing to see the patient, [id number] patient care, completing clinical documentation, obtaining and/or [...] 2022 at 4:24 PM documented in this encounterAdena Fayette Medical Center01-18-2023 Progress note Author Rhoda Mercado [facility] July 05, 2022 10:20am Note Date/Time July 05, 2022 1 0:20am [facility] [address] [place] [address] Progress Note - Wound Care 07/05/22 1016 MR#: [id number] Acct: [id number] Name: KAYLENE HAYNES LY Rep #:[id number] : 1935 87 From: Rhoda Mercado NP [employer]OMOTIVE GLASS INSTALLER-C PCP: Dr. Howard Zimmerman MD Status:REG R [...] Start: 06/23/22 09:32 Freq: Status: Active Protocol: HODAN.LOWEXT Activity Type Activity Date Activity User E-sign Co-sign Detail Recorded Client Recorded Date Recorded By Document 06/23/22 09:32 YOLANDA [id number] 06/23/22 09:34 YOLANDA Document 06/28/22 10:02 JUAN [id number] 06/28/22 10:08 AK Document 07/05/22 09:40 JUAN [id number] 07/05/22 09:43 AK 06/23/22 06/28/22 07/05/22 09:32 10:02 09:40 - Today's Visit Information Type of service Follow-up Visit Follow-up Visit Follow-up Visit (Physician/HI LO DRIVER (Physician/HI LO DRIVER (Physician/HI LO DRIVER ) ) ) Arrival Mode Ambulatory Ambulatory [...] Is Patient Pain Free? Yes Yes Yes - Nurse 1 - General Ulcer Measurement Start: 06/23/22 09:32 Freq: Status: Active Protocol: Activity Type Activity Date Activity User E-sign Co-sign Detail Recorded Client Recorded Date Recorded By Document 06/23/22 09:32 YOLANDA [id number] 06/23/22 09:34 JF Document 06/28/22 10:02 AK [id number] 06/28/22 10:08 AK Document 07/05/22 09:40 AK [id number] 07/05/22 09:43 AK 06/23/22 06/28/22 07/05/22 09:32 10:02 09:40 Wound Center Nurse 1 #1- R GRIER -Combined with other wound No No No [...] Medium (34-66%) Medium (34-66%) -Granulation Quality [place] -Slough/Fibrin Yes Yes Yes -Necrosis Amt Small [...] Date Recorded By Document 06/23/22 12:25 PL [id number] 06/23/22 12:26 PL Document 06/28/22 10:18 MW [id number] 06/28/22 10:20 MW Document 07/05/22 09:54 MW [id number] 07/05/22 09:56 MW 06/23/22 06/28/22 07/05/22 12:25 10:18 09:54 Wound Center Nurse 2 #1- R GRIER -Time 09:34 10:20 09:54 -Correct Patient Yes [...] Is Patient Pain Free? Yes Yes Yes - Nurse 3 - General Ulcer D/C NN Start: 06/23/22 09:32 Freq: Status: Active Protocol: Activity Type Activity Date Activity User E-sign Co-sign Detail Recorded Client Recorded Date Recorded By Document 06/23/22 09:49 JF [id number] 06/23/22 09:51 JF Document 06/28/22 10:29 MW [id number] 06/28/22 10:31 MW Document 07/05/22 09:57 AK [id number] 07/05/22 09:58 AK 06/23/22 06/28/22 07/05/22 09:49 10:29 09:57 Wound Care Nurse 3 #1- R GRIER -Ulcer Cleansing Rinsed/ Rinsed/ Rinsed/ Irrigated with [...] unspecified 07/05/22 1020 <Electronically signed by Rhoda Mercado NP [employer]-C> Cosigner Signature (if applicable): CC: ~ Signed [facility] Work Phone: 1(569) 830-845401-13-2023 History of Present illness Narrative* Ramila Barton [...] 30, 2022 1:25 PM documented in this encounterAdena Fayette Medical Center01-11-2023 Progress note Author Rhdoa Mercado [facility] June 28, 2022 11:06am Note Date/Time June 28, 2022 1 1:06am [facility] [address] [place] [address] Progress Note - Wound Care 06/28/22 1102 MR#: [id number] Acct: [id number] Name: KAYLENE HAYNES Rep #:[id number] : 1935 87 From: Rhoda Mercado NP AUTOMOTIVE GLASS INSTALLER-C PCP: Dr. Howard Zimmerman MD Status:REG R [...] Note Debridement Note Wound debrided: There fromRight grier trauma Type of Debridement: Excisional debridement Anesthesia [...] Date Recorded By Document 06/23/22 09:32 YOLANDA [id number] 06/23/22 09:34 Document 06/28/22 10:02 JUAN [id number] 06/28/22 10:08 JUAN 06/23/22 06/28/22 09:32 10:02 - Today's Visit Information Type of service Follow-up Visit Follow-up Visit (Physician/HI LO DRIVER (Physician/HI LO DRIVER ) ) Arrival Mode Ambulatory Ambulatory Patient [...] Recorded Date Recorded By Document 06/23/22 09:32 [id number] 06/23/22 09:34 Document 06/28/22 10:02 AK [id number] 06/28/22 10:08 AK 06/23/22 06/28/22 09:32 10:02 Wound Center Nurse 1 #1- R GRIER -Combined with other wound No No -Current [...] Medium (34-66%) Medium (34-66%) -Granulation Quality [place] -Slough/Fibrin Yes Yes -Necrosis Amt Small (1-33%) [...] Calf (cm) 29 Right Ankle (cm) 17.5 - Nurse 2 - General Ulcer CM Notes Start: 06/23/22 09:32 Freq: Status: Active Protocol: Activity Type Activity Date Activity User E-sign Co-sign Detail Recorded Client Recorded Date Recorded By Document 06/23/22 12:25 PL [id number] 06/23/22 12:26 PL Document 06/28/22 10:18 MW [id number] 06/28/22 10:20 MW 06/23/22 06/28/22 12:25 10:18 Wound Center Nurse 2 #1- R GRIER -Time 09:34 10:20 -Correct Patient Yes Yes [...] Recorded Date Recorded By Document 06/23/22 09:49 [id number] 06/23/22 09:51 Document 06/28/22 10:29 MW [id number] 06/28/22 10:31 MW 06/23/22 06/28/22 09:49 10:29 Wound Care Nurse 3 #1- R GRIER -Ulcer Cleansing Rinsed/ Rinsed/ Irrigated with Irrigated [...] 1106 <Electronically signed by Rhoda Mercado NP [employer]OM[employer] GLASS INSTALLER-C> Cosigner Signature (if applicable): CC: ~ Signed [facility] Work Phone: 1(138) 818-582101-06-2023 Progress note Author Paige May [facility] June 23, 2022 1:02pm Note Date/Time June 23, 2022 1: 02pm [facility] [address] [place] [address] Progress Note - Wound Care 06/23/22 1252 MR#: [id number] Acct: [id number] Name: KAYLENE HAYNES Rep #:[id number] : 1935 87 From: Paige BRUNSON PCP: Dr. Howard Zimmerman MD Status:REG R [...] 19.8 Charges/Coding Wound Center CF Procedures 96XXX-98XXX: 70446 RMVL DEVITAL TIS 20 CM/< Multi Select Codes Wound Center CF Procedures 96XXX-98XXX: 08389 RMVL DEVITAL TIS 20 CM/< Physical Exam [...] Date Recorded By Document 06/23/22 09:32 YOLANDA [id number] 06/23/22 09:34 06/23/22 09:32 - Today's Visit Information Type of service Follow-up Visit (Physician/HI LO DRIVER ) Arrival Mode Ambulatory Patient Identification Verified [...] Recorded Date Recorded By Document 06/23/22 09:32 [id number] 06/23/22 09:34 06/23/22 09:32 Wound Center Nurse 1 #1- R GRIER -Combined with other wound No -Current Size [...] Recorded Date Recorded By Document 06/23/22 12:25 ROMY [id number] 06/23/22 12:26 PL 06/23/22 12:25 Wound Center Nurse 2 #1- R GRIER -Time 09:34 -Correct Patient Yes -Correct Side, [...] Recorded Date Recorded By Document 06/23/22 09:49 [id number] 06/23/22 09:51 06/23/22 09:49 Wound Care Nurse 3 #1- R GRIER -Ulcer Cleansing Rinsed/ Irrigated with Saline -Foul [...] at rest. She will return to the [facility] in 1 week. She will return sooner or present to the ED should any signs or symptoms of infection arise. 06/23/22 1302 <Electronically signed by Paige BRUNSON> Cosigner Signature (if applicable): CC: ~ Signed [facility] Work Phone: 1(820) 385-673111-25-2022 Hospital Discharge instructions Additional Instructions Please have your sutures removed from your right lower leg in 12 to 14 days. [facility] Work Phone: 1(184) 404-432310-18-2022 Miscellaneous Notes* Telephone Encounter - Myrna Lees RN - 04/04/2022 9:59 AM EDT Order pending. Myrna Lees RN * Telephone Encounter - Ligia Monson - 04/04/2022 9:49 AM EDT Patient is scheduled for mammogram screening on 06/30/2022. Requesting updated order, current orderexpires 05/02/2022. Thank you. documented in this encounterAdena Fayette Medical Center09-21-2022 Miscellaneous Notes* Telephone Encounter - Shannan Aguirre [...] decide. Bart Brooks DO documented in this encounterAdena Fayette Medical Center08-30-2022 Miscellaneous Notes* Telephone Encounter - Karen Saenz [...] this. Bart Brooks DO documented in this encounterAdena Fayette Medical Center08-30-2022 History of Present illness Narrative* Bart Brooks DO - 02/14/2022 11:52 AM EDT Diagnosis: 1) Lymphoproliferative disorder. HPI: The patient is a 86 yo female whom I saw in consultation at [facility] in 2006for pancytopenia following an [...] definite evidence of malignancy. PET done at 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 Received [address] [...] weeks, she has noticed a small little "knot" in her upper abdomen below the xiphoid [...] temperature source Temporal, height 156.8 cm (5' 1.75"), weight 46.3 kg (102 lb). Frail-appearing and [...] No jaundice or rash. No petechiae. 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 No focal motor [...] (H) 8.64 (H) 6.05 (H) 6.84 (H) [place]berg% % 6 6.0 7.0 11.0 9.0 Abs [place] <0.87 k/uL 0.75 0.97 (H) 1.08 (H) 1.51 (H) 1.38 (H) Eosin% % 6 4.0 2.0 3.0 3.0 Abs Eosin <0.46 k/uL 0.75 (H) 0.64 (H) 0.31 0.41 0.44 Baso% % 1 2.0 2.0 0.0 1.0 Abs Baso <0.11 k/uL 0.12 (H) 0.32 (H) 0.31 (H) 0.00 0.43 (H) ANC(includeSEG+BAND) k/uL 5.96 5.09 5.78 Acanthocyte Few Few Few Few [place] Bodies Occasional Ovalocytes Few Few Few Few Few Target Cells Few Few Few Few Platelet Estimate Platelet estimate adequate Platelet estimate adequate Platelet estimate adequate Platelet estimate adequate Adequate Diff Type Manual Diff Manual Diff Manual Diff Tear Drop Few Abs Lym 1.00 - 4.00 K/uL 5.99 (H) Anisocytosis Present RBC Fragments None Seen Few (A) WBC, [place] 3.70 - 11.00 k/uL 13.90 (H) 11.69 (H) 14.70 (H) RBC, [place] 3.90 - 5.20 m/uL 4.07 4.20 4.11 Hemoglobin, [place] 11.5 - 15.5 g/dL 12.3 12.7 12.5 Hematocrit, [place] 36.0 - 46.0 % 38.2 38.0 37.6 MCV, [place] 80.0 - 100.0 fL 93.9 90.5 91.5 MCH, [place] 26.0 - 34.0 pg 30.2 30.2 30.4 MCHC, [place] 30.5 - 36.0 g/dL 32.2 33.4 33.2 RDW, [place] 11.5 - 15.0 % 13.5 14.2 14.7 Platelet Cnt, [place] 150 - 400 k/uL 297 293 317 MPV, [place] 9.0 - 12.7 fL 10.7 10.5 9.6 Neut%, [place] % 50 41.4 48 Lymp%, [place] % 40 41.7 37 Bamberg%, [place] % 5 14.0 12 Eos%, [place] % 2 1.8 1 Baso%, [place] % 3 1.1 2 Abs Neut, [place] 1.45 - 7.50 k/uL 6.95 4.83 7.06 Abs Lymp, [place] 1.00 - 4.00 k/uL 5.56 (H) 4.88 (H) 5.44 (H) Abs Bamberg, [place] <0.87 k/uL 0.70 1.64 (H) 1.76 (H) Abs Eos, [place] <0.46 k/uL 0.28 0.21 0.15 Abs Baso, [place] <0.11 k/uL 0.42 (H) 0.13 (H) 0.29 [...] care. Bart Brooks DO documented in this encounterAdena Fayette Medical Center06-20-2022 Miscellaneous Notes* Telephone Encounter - Daja Lambert [...] Pt stated she had labs done at [facility] 11/21/[address] Zimmerman. He noted that she had elevated white blook count and may want to be seen sooner by Dr Brooks. Please advise pt. [facility] documented in this encounterAdena [facility] Center04-04-2022 Instructions* Patient Instructions* Sridevi Solo MD - 09/19/2021 3:15 PM EDT Please, increase carbidopa/levodopa 25/100 to 1.5 tablets 3 times a day at 8 AM, 1 PM and 6 PM Please, continue taking mirtazapine 7.5 mg at bedtime Please, think about re-visiting PD-specific physical therapy locally Please, follow-up in six months documented in this encounterAdena Fayette Medical Center04-04-2022 History of Present illness Narrative* Sridevi Solo MD - 09/19/2021 2:54 PM EDT [facility] - FOLLOW UP EVALUATION Howard Zimmerman MD [address] [facility] [address] [facility] [address] I had the pleasure of seeing Ms. [...] PROMIS-10 Office Visit from 09/19/2021 in [facility] [...] Adult) Pulse 86 Ht 158 cm (5' 2.21") Wt 48.5 kg (107 lb) SpO2 97% [...] Parkinson's Medication Schedule: Level of service : 95219 (40-54 min). Time spent 45 min on the day of service, which included preparing to see the patient, owvr-rb-hgsg patient care, completing clinical documentation, obtaining and/or [...] Sincerely, Sridevi Solo MD documented in this encounterAdena Fayette Medical Center12-10-2019 History of Present illness Narrative* Bonnie Quinteros RN - 05/27/2019 9:07 AM EST Pt sitting up and tolerating po well * Bonnie Quinteros RN - 05/27/2019 8:34 AM EST PATIENT RECEIVED FROM OR VIA CART. SPONT RESP. WITH HAM FACER IN ATTENDANCE. PLACED ON MONITOR. MONITOR ALARMS ON IN PACU. RT arm elevated and ice pack applied * Jenny De Santiago RN - 05/27/2019 7:12 AM EST Timeout performed prior to regional block procedure. Dr Kenyon in attendance. documented in this encounterSUMMA Work Phone: Consult note Author Franca Bernard [facility] January 16, 2023 1:43pm Note Date/Time January 16, 2023 1:4 3pm [facility] Medical Records Department [address] [place] [address] Counseling Note - Pharmacy 01/16/23 1343 MR#: [id number] Acct: [id number] Name: KAYLENE HAYNES LY Rep #:[id number] : 1935 87 From: Franca Bernard PCP: Dr. 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 documented in this encounter [facility]* Diagnosis Onset Date Resolution Status Essential hypertension chron ic History of atrial myxoma chr onic Hyperlipidemia chronic Nonrheumatic mitral (valve) prolapse chronic Nonrheumatic mitral valve regurgitation chronic Nonrheumatic tricuspid valve regurgitation chronic Premature atrial contractions chronic Premature ventricular contraction chronic [facility] Work Phone: Evaluation note* 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 documented in this encounter [facility]* 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 Hernia of abdominal wall Ventral hernia, unspecified, without mention of obstruction or gangrene [facility] Onset Date Resolution Status Acute bronchitis, unspecified acute Acute sinusitis, unspecified acute Contact with and (suspected) exposure to other viral communicable diseases [facility] Work Phone: Evaluation note* Diagnosis Encounter for screening mammogram for malignant neoplasm of breast- Primary Other screening mammogram documented in this encounter [facility]* Diagnosis Onset Date Resolution Status Acute bronchitis, unspecified acute Acute sinusitis, unspecified acute Contact with and (suspected) exposure to other viral communicable diseases acute Infected wound acute Laceration of leg acute Nonhealing nonsurgical wound acute [facility] Work Phone: Evaluation note* Diagnosis Parkinson's disease (HCC)- Primary Paralysis agitans Abnormality of gait 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 documented in this encounter [facility] note* 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 documented in this encounter [facility] note* Diagnosis Onset Date Resolution Status Acute bronchitis, unspecified acute Acute sinusitis, unspecified acute Contact with and (suspected) exposure to other viral communicable diseases acute Infected wound acute Laceration of leg acute Nonhealing nonsurgical wound acute Infected wound acute Laceration of leg acute Nonhealing nonsurgical wound acute [facility] Work Phone: Evaluation note* Diagnosis 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 Parkinson's disease (HCC) Paralysis agitans Abnormality of gait 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 documented in this encounter [facility] note* Diagnosis Onset Date Resolution Status Acute bronchitis, unspecified acute Acute sinusitis, unspecified acute Contact with and (suspected) exposure to other viral communicable diseases acute Infected wound acute Laceration of leg acute Nonhealing nonsurgical wound acute Infected wound acute Laceration of leg acute Nonhealing nonsurgical wound acute Infected wound acute Laceration of leg acute Nonhealing nonsurgical wound acute [facility] Work Phone: Evaluation note* 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 documented in this encounter [facility] note* Diagnosis Onset Date Resolution Status Infected wound acute Laceration of leg acute Nonhealing nonsurgical wound acute Infected wound acute Laceration of leg acute Nonhealing nonsurgical wound acute Infected wound acute Laceration of leg acute Nonhealing nonsurgical wound acute [facility] Work Phone: Evaluation note* Diagnosis Onset Date Resolution Status Infected wound acute Laceration of leg acute Nonhealing nonsurgical wound acute Infected wound acute Laceration of leg acute Nonhealing nonsurgical wound acute [facility] Work Phone: Evaluation noteNo assessment information available [facility] Work Phone: Evaluation note* Diagnosis Onset Date Resolution Status Essential hypertension chron ic Dysarthria acute Parkinson's disease acute Syncope acute [facility] Work Phone: Evaluation note* 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 documented in this encounter [facility] note* Diagnosis Onset Date Resolution Status Essential hypertension chron ic Parkinson's disease acute Dysarthria resolved [facility] Work Phone: Evaluation note* Diagnosis Parkinson's disease without dyskinesia or fluctuating manifestations- Primary documented in this encounter [facility] note* Diagnosis Encounter for screening mammogram for malignant neoplasm of breast Other screening mammogram documented in this encounter [facility] note* Diagnosis Onset Date Resolution Status Parkinson's disease acute Dysarthria resolved [facility] Work Phone: Evaluation note* Diagnosis Onset Date Resolution Status Brain TIA acute [facility] Work Phone: Evaluation note* Diagnosis Onset Date Resolution Status Brain TIA resolved [facility] Work Phone: Evaluation note* 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 [facility]* 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 documented in this encounter [facility] note* Diagnosis Onset Date Resolution Status Brain TIA resolved Anemia acute Debility acute Falls acute Generalized weakness acute Leukocytosis acute Parkinson's disease acute [facility] Work Phone: Evaluation note* Diagnosis Onset Date Resolution Status Brain TIA acute Debility acute Generalized weakness acute Leukocytosis resolved Acute encephalopathy acute Brain TIA acute Debility acute GERD (gastroesophageal reflux disease) acute Orthostatic hypotension acut e Syncope acute Hyperlipidemia chronic History of atrial myxoma chr onic Hyperlipidemia chronic Premature atrial contractions chronic [facility] Work Phone: Evaluation note* Diagnosis Parkinson's disease 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)- Primary [facility]* Diagnosis Onset Date Resolution Status Brain TIA acute Debility acute Generalized weakness acute Leukocytosis resolved Brain TIA acute Debility acute GERD (gastroesophageal reflux disease) acute Orthostatic hypotension acut e Hyperlipidemia chronic Acute encephalopathy resolve d Syncope resolved History of atrial myxoma chr onic Hyperlipidemia chronic Premature atrial contractions [facility] Work Phone: Evaluation note* Diagnosis Onset Date Resolution Status Debility acute Generalized weakness acute Leukocytosis resolved Brain TIA acute Debility acute GERD (gastroesophageal reflux disease) acute Orthostatic hypotension acut e Hyperlipidemia chronic Acute encephalopathy resolve d Syncope resolved History of atrial myxoma chr onic Hyperlipidemia chronic Premature atrial contractions [facility] Work Phone: Evaluation note* Diagnosis Parkinson's disease 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) documented in this encounter [facility] note* Diagnosis Parkinson's disease 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)- Primary Neurogenic orthostatic hypotension (HCC) [facility] Instructions* Brandon Faye MD - 05/27/2019 OK to move fingers and thumb within confined of splint Ice and elevate for pain control OK to take tylenol/ibuprofen for pain relief Keep bandage on until first post operative appointment documented in this [facility] Work Phone: Hospital Discharge instructions No data available for this section [facility] Hospital Discharge instructions Additional Instructions Elevate [...] care physician this week to be reevaluated [facility] Work Phone: Progress note No data available for this section [facility] Reason for referral (narrative)* Diagnostic Procedure Only (Routine) - Authorized Specialty Diagnoses / Procedures Referred By Aron t Referred To Contact [facility] Diagnoses Encounter for screening mammogram for malignant neoplasm of breast Procedures GLEN SCREENING SCREENING MAMMOGRAPHY BI 2-VIEW BREAST INC Irasema Camacho MD [address] [place] [address] [facility] [address] [place] [address] Referral ID Status Reason Start Date Expiration Date Visits Requested Visits Authorized [id number] Authorized Auto-Generat ed Referral 05/04/2023 1 1 [facility] Diagnostic Procedure Only (Routine) - Closed Specialty Diagnoses / Procedures Referred By Aron ramos Referred To Contact [facility] Diagnoses Encounter for screening mammogram for malignant neoplasm of breast Procedures GLEN SCREENING SCREENING MAMMOGRAPHY BI 2-VIEW BREAST INC Irasema Camacho MD [address] [place] [address] [facility] [address] [place] [address] Referral ID Status Reason Start Date Expiration Date V isits Requested Visits Authorized [id number] Closed Auto-Generate d Referral 04/04/2022 05/04/2023 1 1 [facility] (narrative)No reason for [facility] Reason for visit Narrative* Diagnostic Procedure Only (Routine) - Closed Specialty Diagnoses / Procedures Referred By Aron ramos Referred To Contact [facility] Diagnoses Encounter for screening mammogram for malignant neoplasm of breast Procedures GLEN SCREENING SCREENING MAMMOGRAPHY BI 2-VIEW BREAST INC Irasema Camacho MD [address] [place] [address] [facility] [address] [place] [address] Referral ID Status Reason Start Date Expiration Date V isits Requested Visits Authorized [id number] Closed Auto-Generate d Referral 04/04/2022 05/04/2023 1 1 [facility] Discharge Instructions * Instructions* Fariba [...] please call your surgeon. Please bring your [facility] Information folder on the day of [...] attempt with 22 gauge needle at R F site, patient tolerated well, site benign. 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 Advance Directives and Living Will Power of Senior Housekeeper Latest Code Status on File Code Status Date Activated Date Inactivated Comments Full Code 05/27/2019 6:25 AM Advance Directive Response Recorded Date/ Time Living Will No June 17, 019 2:45pm Power of Senior Housekeeper Yes June 17, 2019 2:45pm Advance Directive Response Recorded Date/ Time Name of Medical Power of Senior Housekeeper Belkis Haynes April 14, 2022 1:37pm Living Will Yes April 14 1:37pm Power of Senior Housekeeper Yes April 14, 2022 1:37pm Advance Directive Response Recorded Date/ Time Name of Medical Power of Senior Housekeeper Belkis Haynes April 14, 2022 12:37pm Name of Medical Power of Senior Housekeeper elsa- daughter in law May 12, 2022 12:01p m Living Will Yes May 12, 2 022 12:01pm Power of Senior Housekeeper Yes May 12, 2022 12:01pm Advance Directive Response Recorded Date/ Time Name of Medical Power of Senior Housekeeper elsa- daughter in law May 12, 2022 1:01pm Living Will Yes May 12, 022 1:01pm Power of Senior Housekeeper Yes May 12, 2022 1:01pm Advance Directive Response Recorded Date/ Time Living Will Yes May 12, 022 1:01pm Power of Senior Housekeeper Yes May 12, 2022 1:01pm Advance Directive Response Recorded Date/ Time Name of Medical Power of Senior Housekeeper ELVIRA HAYNES January 15, 2023 1:25pm Living Will Yes January 15, 2023 1:25pm Power of Senior Housekeeper Yes January 15 1:25pm Advance Directive Response Recorded Date/ Time Name of Medical Power of Senior Housekeeper ELVIRA HAYNES January 15, 2023 12:25pm Living Will Yes January 15, 2023 12:25pm Power of Senior Housekeeper Yes January 15 12:25pm Advance Directive Response Recorded Date/ Time Living Will Yes January 15, 2023 12:25pm Power of Senior Housekeeper Yes January 15 12:25pm Advance Directive Response Recorded Date/ Time Name of Medical Power of Senior Housekeeper belkis haynes June 28, 2023 12:42pm Living Will Yes June 28 12:42pm Power of Senior Housekeeper Yes June 28, 2023 12:42pm Advance Directive Response Recorded Date/ Time Name of Medical Power of Senior Housekeeper Nicole Haynes June 28, 2023 7:34pm Living Will Yes June 28 7:34pm Power of Senior Housekeeper Yes June 28, 2023 7:34pm Advance Directive Response Recorded Date/ Time Name of Medical Power of Senior Housekeeper Nicole Haynes June 28, 2023 7:34pm Name of Medical Power of Senior Housekeeper Mckay (daughter in law) July 28, 2023 9:19am Living Will Yes July 28 9:19am Power of Senior Housekeeper Yes July 28, 2023 9:19am Advance Directive Response Recorded Date/ Time Name of Medical Power of Senior Housekeeper Nicole Haynes June 28, 2023 8:34pm Name of Medical Power of Senior Housekeeper Mckay (daughter in law) July 28, 2023 10:19am Name of Medical Power of Senior Housekeeper son September 08, 2023 10:17am Living Will Yes September 08, 2023 10:17am Power of Senior Housekeeper Yes September 07 10:17am Advance Directive Response Recorded Date/ Time Name of Medical Power of Senior Housekeeper Nicole Haynes June 28, 2023 8:34pm Name of Medical Power of Senior Housekeeper Mckay (daughter in law) July 28, 2023 10:19am Name of Medical Power of Senior Housekeeper Carolann haynes September 08, 2023 2:45pm Living Will Yes September 08, 2023 2:45pm Power of Senior Housekeeper Yes September 07 2:45pm Advance Directive Response Recorded Date/ Time Name of Medical Power of Senior Housekeeper Nicole Haynes June 28, 2023 8:34pm Name of Medical Power of Senior Housekeeper Mckay (daughter in law) July 28, 2023 10:19am Name of Medical Power of Senior Housekeeper Belkis Haynes primary; alternative sonsElvira and Gonzalez Haynes September 18, 2023 2:51pm Living Will No September 18, 2023 2:51pm Power of Senior Housekeeper Yes September 17 2:51pm Name of Medical Power of Senior Housekeeper Carolann haynes September 08, 2023 2:45pm Advance Directive Response Recorded Date/ Time Name of Medical Power of Senior Housekeeper Mckay (daughter in law) July 28, 2023 10:19am Name of Medical Power of Senior Housekeeper Belkis Haynes primary; alternative Elvira sanz and Gonzalez Haynes September 18, 2023 2:51pm Living Will No September 18, 2023 2:51pm Power of Senior Housekeeper Yes September 17 2:51pm Name of Medical Power of Senior Housekeeper Carolann haynes September 08, 2023 2:45pm Summary Purpose Family [...] confusion TIA TIA (cardiology) 30 DAY MONITOR REY TO READ fall CERVICAL SPINE STENOSIS. RX HERE CERVICAL SPINE STENOSIS. RX HERE Reason for Visit Brain TIA Chief Complaint Chills (without feve r) confusion TIA TIA (cardiology) 30 DAY MONITOR REY TO READ fall CERVICAL SPINE STENOSIS. RX HERE CERVICAL SPINE STENOSIS. RX HERE DEBILITY Reason for Visit Brain TIA Chief Complaint confusion TIA TIA (cardiology) 30 DAY MONITOR REY TO READ fall CERVICAL SPINE STENOSIS. RX HERE CERVICAL SPINE STENOSIS. RX HERE DEBILITY DEBILITY DEBILITY DEBILITY DEBILITY DEBILITY DEBILITY DEBILITY Reason for Visit Brain TIA Anemia Debility Falls Generalized weakness Leukocytosis Parkinson's disease Chief Complaint confusion TIA TIA (cardiology) 30 DAY MONITOR REY TO READ fall CERVICAL SPINE STENOSIS. RX [...] confusion TIA TIA (cardiology) 30 DAY MONITOR REY TO READ fall CERVICAL SPINE STENOSIS. RX HERE CERVICAL SPINE STENOSIS. RX HERE DEBILITY DEBILITY DEBILITY DEBILITY DEBILITY DEBILITY DEBILITY DEBILITY DEBILITY ABN HOLTER (SEE NOTES) RETIREMENT LAB WORK Reason for Visit Brain TIA Debility Generalized weakness Leukocytosis Brain TIA Debility GERD (gastroesophageal reflux disease) Orthostatic hypotension Hyperlipidemia Acute encephalopathy Syncope History of atrial myxoma Hyperlipidemia Premature atrial contractions Chief Complaint 30 DAY MONITOR REY TO READ fall CERVICAL SPINE STENOSIS. RX HERE CERVICAL SPINE STENOSIS. RX HERE DEBILITY DEBILITY DEBILITY DEBILITY DEBILITY DEBILITY DEBILITY DEBILITY DEBILITY ABN HOLTER (SEE NOTES) RETIREMENT LAB WORK Reason for Visit Debility Generalized [...] STENOSIS. RX HERE Chief Complaint Admit Date RETIREMENT LAB WORK May 22, 2024 5:00am MONTHLY EXAM May 29, 2024 6:26pm RETIREMENT LAB WORK June 10 5:00am NEW CONCERN June 17, 2024 1:14pm LABWORK June 19, 2024 5: 00am RETIREMENT LAB WORK June 26, 2024 5:45am MONTHLY EXAM July 01, 2024 3 :35pm RETIREMENT LAB WORK July 17, 2024 5:00am NEW CONCERN July 31, 2024 1:57pm RETIREMENT LAB WORK August 14 4:00am Chief Complaint Admit Date RETIREMENT LAB WORK June 10 5:00am NEW CONCERN June 17, 2024 1:14pm LABWORK June 19, 2024 5: 00am RETIREMENT LAB WORK June 26, 2024 5:45am MONTHLY EXAM July 01, 2024 3 :35pm RETIREMENT LAB WORK July 17, 2024 5:00am NEW CONCERN July 31, 2024 1:57pm RETIREMENT LAB WORK August 14 4:00am MONTHLY EXAM August 26, 2024 2:4 0pm RETIREMENT LAB WORK September 11, 2024 5 :00am Chief Complaint Admit Date RETIREMENT LAB WORK July 17, 2024 5:00am NEW CONCERN July 31, 2024 1:57pm RETIREMENT LAB WORK August 14 4:00am MONTHLY EXAM August 26, 2024 2:4 0pm RETIREMENT LAB WORK September 11, 2024 5 :00am RETIREMENT LAB WORK September 18, 2024 5: 00am LABWORK October 22, 2024 5:00am Chief Complaint Admit Date RETIREMENT LAB WORK August 14 4:00am MONTHLY EXAM August 26, 2024 2:4 0pm RETIREMENT LAB WORK September 11, 2024 5 :00am Acute September 17, 2024 3:57 pm RETIREMENT LAB WORK September 18, 2024 5: 00am LABWORK October 22, 2024 5:00am RETIREMENT LAB WORK October 23, 2024 4:00 am LABWORK November 27, 2024 5:00 am Chief Complaint Admit Date RETIREMENT LAB WORK August 14 4:00am MONTHLY EXAM August 26, 2024 2:4 0pm RETIREMENT LAB WORK September 11, 2024 5 :00am Acute September 17, 2024 3:57 pm RETIREMENT LAB WORK September 18, 2024 5: 00am LABWORK October 22, 2024 5:00am RETIREMENT LAB WORK October 23, 2024 4:00 am NEW CONCERN November 07, 2024 1:38p m LABWORK November 27, 2024 5:00 am Reason for Referral Specialty Diagnoses / Procedures Referred By Contac t Referred To Contact Diagnoses Parkinson's disease 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) Procedures PROVIDER ORDERED FOLLOW UP OFFICE/OUTPATIENT NEW HIGH MDM 60 MINUTES Selvin Felder MD [address] [address] Referral ID Status Reason Start Date Expiration Date Visits Requested Visits Authorized [id number] Authorized PCP Requested Referral 10/18/2023 01/16/2024 1 1 Specialty Diagnoses / Procedures Referred By Contac t Referred To Contact Diagnoses Parkinson's disease (HCC) Abnormality of 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) Procedures PROVIDER ORDERED FOLLOW UP OFFICE/OUTPATIENT NEW HIGH MDM 60-74 MINUTES Sridevi Solo MD [address] [place] [address] Referral ID Status Reason Start Date Expiration Date Visits Requested Visits Authorized [id number] Pending Review PCP Requested Referral 07/05/2022 10/03/2022 1 1 Specialty Diagnoses / Procedures Referred By Contact Referred To Contact [facility] Diagnoses Parkinson's disease (HCC) Abnormality of 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) Procedures CONSULT TO PHYSICAL THERAPY PHYSICAL THERAPY EVALUATION HIGH COMPLEX 45 MINS Sridevi Solo MD [address] [place] [address] [facility] [id number] [place] [address] Referral ID Status Reason Start Date Expiration Date Visits Requested Visits Authorized [id number] Pending Review Auto-Generat ed Referral 07/05/2022 07/05/2023 1 1 Specialty Diagnoses / Procedures Referred By Contac t Referred To Contact CT IMAGING Diagnoses 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 Procedures CT ABD/PEL WO IVCON CT ABD & PELVIS W/O CONTRAST [facility], [address] [place] [address] Ct [facility] Referral ID Status Reason Start Date Expiration Date Visits Requested Visits Authorized [id number] Pending Review Auto-Generat ed Referral 02/14/2022 03/16/2023 1 1 Additional Source Comments INFORMATION SOURCE (unrecogn ized section and content) DATE CREATED AUTHOR 06/23/2019 [facility] DATE CREATED AUTHOR AUTHOR'S ORGANIZ ATION 06/01/2020 [facility] DATE CREATED AUTHOR AUTHOR'S ORGANIZ ATION 02/16/2023 [facility] DATE CREATED AUTHOR AUTHOR'S ORGANIZ ATION 03/23/2023 [facility] DATE CREATED AUTHOR AUTHOR'S ORGANIZ ATION 10/23/2024 [facility] DATE CREATED AUTHOR AUTHOR'S ORGANIZ ATION 12/29/2024 [facility] Source Comments (unrecognize d section and content) In the event this informatio n is protected by the Federal Confidentiality of Alcohol and Drug Abuse Patient Records regulations: The Federal rules restrict any use of the information to criminally investigate or prosecute any alcohol or drug abuse patient.[facility] the event this information is protected by the Federal Confidentiality of Alcohol and Drug Abuse Patient Records regulations: The Federal rules restrict any use of the information to criminally investigate or prosecute any alcohol or drug abuse patient.[facility] the event this information is protected by the Federal Confidentiality of Alcohol and Drug Abuse Patient Records regulations: The Federal rules restrict any use of the information to criminally investigate or prosecute any alcohol or drug abuse patient.[facility] the event this information is protected by the Federal Confidentiality of Alcohol and Drug Abuse Patient Records regulations: The Federal rules restrict any use of the information to criminally investigate or prosecute any alcohol or drug abuse patient.[facility] the event this information is protected by the Federal Confidentiality of Alcohol and Drug Abuse Patient Records regulations: The Federal rules restrict any use of the information to criminally investigate or prosecute any alcohol or drug abuse patient.[facility] the event this information is protected by the Federal Confidentiality of Alcohol and Drug Abuse Patient Records regulations: The Federal rules restrict any use of the information to criminally investigate or prosecute any alcohol or drug abuse patient.[facility] the event this information is protected by the Federal Confidentiality of Alcohol and Drug Abuse Patient Records regulations: The Federal rules restrict any use of the information to criminally investigate or prosecute any alcohol or drug abuse patient.[facility] the event this information is protected by the Federal Confidentiality of Alcohol and Drug Abuse Patient Records regulations: The Federal rules restrict any use of the information to criminally investigate or prosecute any alcohol or drug abuse patient.[facility] Center[facility] the event this information is protected by the Federal Confidentiality of Alcohol and Drug Abuse Patient Records regulations: The Federal rules restrict any use of the information to criminally investigate or prosecute any alcohol or drug abuse patient.[facility] Center[facility] the event this information is protected by the Federal Confidentiality of Alcohol and Drug Abuse Patient Records regulations: The Federal rules restrict any use of the information to criminally investigate or prosecute any alcohol or drug abuse patient.[facility] Center[facility] the event this information is protected by the Federal Confidentiality of Alcohol and Drug Abuse Patient Records regulations: The Federal rules restrict any use of the information to criminally investigate or prosecute any alcohol or drug abuse patient.[facility] Center[facility] the event this information is protected by the Federal Confidentiality of Alcohol and Drug Abuse Patient Records regulations: The Federal rules restrict any use of the information to criminally investigate or prosecute any alcohol or drug abuse patient.[facility] Center[facility] the event this information is protected by the Federal Confidentiality of Alcohol and Drug Abuse Patient Records regulations: The Federal rules restrict any use of the information to criminally investigate or prosecute any alcohol or drug abuse patient.[facility] Center[facility] the event this information is protected by the Federal Confidentiality of Alcohol and Drug Abuse Patient Records regulations: The Federal rules restrict any use of the information to criminally investigate or prosecute any alcohol or drug abuse patient.[facility] Center[facility] the event this information is protected by the Federal Confidentiality of Alcohol and Drug Abuse Patient Records regulations: The Federal rules restrict any use of the information to criminally investigate or prosecute any alcohol or drug abuse patient.[facility] Center[facility] the event this information is protected by the Federal Confidentiality of Alcohol and Drug Abuse Patient Records regulations: The Federal rules restrict any use of the information to criminally investigate or prosecute any alcohol or drug abuse patient.[facility] Center[facility] the event this information is protected by the Federal Confidentiality of Alcohol and Drug Abuse Patient Records regulations: The Federal rules restrict any use of the information to criminally investigate or prosecute any alcohol or drug abuse patient.[facility] CenterIn the event this information is protected by the Federal Confidentiality of Alcohol and Drug Abuse Patient Records regulations: The Federal rules restrict any use of the information to criminally investigate or prosecute any alcohol or drug abuse patient.[facility] CenterIn the event this information is protected by the Federal Confidentiality of Alcohol and Drug Abuse Patient Records regulations: The Federal rules restrict any use of the information to criminally investigate or prosecute any alcohol or drug abuse patient.[facility] the event this information is protected by the Federal Confidentiality of Alcohol and Drug Abuse Patient Records regulations: The Federal rules restrict any use of the information to criminally investigate or prosecute any alcohol or drug abuse patient.[facility] the event this information is protected by the Federal Confidentiality of Alcohol and Drug Abuse Patient Records regulations: The Federal rules restrict any use of the information to criminally investigate or prosecute any alcohol or drug abuse patient.[facility] the event this information is protected by the Federal Confidentiality of Alcohol and Drug Abuse Patient Records regulations: The Federal rules restrict any use of the information to criminally investigate or prosecute any alcohol or drug abuse patient.[facility] Center[facility] the event this information is protected by the Federal Confidentiality of Alcohol and Drug Abuse Patient Records regulations: The Federal rules restrict any use of the information to criminally investigate or prosecute any alcohol or drug abuse patient.[facility] CenterIn the event this information is protected by the Federal Confidentiality of Alcohol and Drug Abuse Patient Records regulations: The Federal rules restrict any use of the information to criminally investigate or prosecute any alcohol or drug abuse patient.[facility] CenterIn the event this information is protected by the Federal Confidentiality of Alcohol and Drug Abuse Patient Records regulations: The Federal rules restrict any use of the information to criminally investigate or prosecute any alcohol or drug abuse patient.[facility] CenterIn the event this information is protected by the Federal Confidentiality of Alcohol and Drug Abuse Patient Records regulations: The Federal rules restrict any use of the information to criminally investigate or prosecute any alcohol or drug abuse patient.[facility] Reason for Visit (unrecogniz ed section and content) Reason Comments Parkinson's Disease Specialty Diagnoses / Procedures Referred By Contac t Referred To Contact Diagnoses Parkinson's disease 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) Procedures PROVIDER ORDERED FOLLOW UP OFFICE/OUTPATIENT [facility] 60 MINUTES Selvin Felder MD [facility] [address] [address] Referral ID Status Reason Start Date Expiration Date V isits Requested Visits Authorized [id number] Closed PCP Requested Referral 10/18/2023 01/16/2024 1 [...] HIGH COMPLEX 45 MINS Sridevi Solo MD [address] [place] [address] Tejal Willard, PT [address] [place] [address] Referral ID Status Reason Start Date Expiration Date V isits Requested Visits Authorized [id number] Authorized 07/05/2022 07/05/2023 1 99 Reason Comments Established Patient Reason Comments Patient Request Reason Comments Follow Up Specialty Diagnoses / Procedures Referred By Contac t Referred To Contact Diagnoses Tongue biting Procedures PROVIDER ORDERED FOLLOW UP Selvin Felder MD [address] [address] Referral ID Status Reason Start Date Expiration Date V isits Requested Visits Authorized [id number] Closed PCP Requested Referral 10/03/2022 01/01/2023 1 1 Reason Comments Patient Question Reason Onset Date Comments Refill Request 07/30/2023 Reason Comments Appointment Specialty Diagnoses / Procedures Referred By Contac t Referred To Contact Diagnoses Parkinson's disease 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) Procedures PROVIDER ORDERED FOLLOW UP OFFICE/OUTPATIENT [facility] 60 MINUTES Selvin Felder MD [address] [address] Phone: tel: fax: Referral ID Status Reason Start Date Expiration Date V isits Requested Visits Authorized [id number] Closed PCP Requested Referral 04/21/2024 07/20/2024 1 1 Care Teams (unrecognized sec tion and content) General Hardware Salesperson Relationship Specialty Start Date End Date Howard Zimmerman Chi PCP - General Gerontology 11/23/14 General Hardware Salesperson Relationship Specialty Start Date End Date Erasmo, Howard Chi PCP - General Gerontology 11/23/14 General Hardware Salesperson Relationship Specialty Start Date End Date Erasmo, Howard Chi PCP - General Gerontology 11/23/14 General Hardware Salesperson Relationship Specialty Start Date End Date Erasmo, Howard Chi PCP - General Gerontology 11/23/14 General Hardware Salesperson Relationship Specialty Start Date End Date Erasmo, Howard Chi PCP - General Gerontology 11/23/14 General Hardware Salesperson Relationship Specialty Start Date End Date Erasmo, Howard Chi PCP - General Gerontology 11/23/14 General Hardware Salesperson Relationship Specialty Start Date End Date Erasmo, Howard Chi PCP - General Gerontology 11/23/14 General Hardware Salesperson Relationship Specialty Start Date End Date Erasmo, Howard Chi PCP - General Gerontology 11/23/14 Team Status: Active Member Role Status Dates Dr. Howard Zimmerman MD Family Provider Active Dr. Howard Zimmerman MD Primary Care Provider Active Team Status: Inactive Member Role Status Dates Dr. Howard Zimmerman MD Primary Care Provider, Referring Provider Active Filipe BRUNSON, PA Attending Provider Active Team Status: Active Member Role Status Dates Dr. Howard Zimmerman MD Primary Care Provider Active Rhoda Mercado AUTOMOTIVE GLASS INSTALLER, AUTOMOTIVE GLASS INSTALLER-C Other Provider Active Paige BRUNSON, PA Attending Provider Active Team Status: Active Member Role Status Dates Dr. Howard Zimmerman MD Primary Care Provider Active Rhoda Mercado AUTOMOTIVE GLASS INSTALLER, AUTOMOTIVE GLASS INSTALLER-C Attending Provider, Other Pro vider Active Team Status: Inactive Member Role Status Dates Dr. Howard Zimmerman MD Primary Care Provider, Attending Provider Active Team Status: Inactive Member Role Status Dates Dr. Howard iZmmerman MD Primary Care Provider, Attending Provider Active [...] MD Primary Care Provider Active Rhoda Mercado AUTOMOTIVE GLASS INSTALLER, AUTOMOTIVE GLASS INSTALLER-C Attending Provider Active General Hardware Salesperson Relationship Specialty Start Date End Date Erasmo Howard Morris PCP - General Gerontology 11/23/14 Team Status: Inactive Member Role Status Dates Dr. Howard Zimmerman MD Primary Care Provider Active Dr. Melissa Pinon DO Attending Provider Active Team Status: Active Member Role Status Dates Dr. Howard Zimmerman MD Primary Care Provider Active SRIDEVI, ITIN Attending Provider, Referring Provider Ac tive Team [...] Howard Zimmerman MD Primary Care Provider Active SRIDEVI, ITIN Attending Provider, Referring Provider Ac tive Team [...] Dr. Gonzalez Garza DO Admit Provider, Attending Pro vider Active General Hardware Salesperson Relationship Specialty Start Date End Date Howard Zimmerman Chi PCP - General Gerontology 11/23/14 Team Status: Active Member Role Status Dates Dr. Howard Zimmerman MD Primary Care Provider Active Dr. Drake Beck MD Attending Provider, Referring Provider Active General Hardware Salesperson Relationship Specialty Start Date End Date Howard Zimmerman Chi PCP - General Gerontology 11/23/14 General Hardware Salesperson Relationship Specialty Start Date End Date Howard [...] MD Other Provider Active Dr. Paige Martinez , Other Provider Active Dr. Farzana Levin MD [...] MD Other Provider Active Dr. Paige Martinez , Other Provider Active Dr. Farzana Levin MD Other Provider Active Dr. Timothy oFrtune MD Other Provider Active Dr. Cherie Mark [...] Dr. Umesh Velázquez MD Emergency Provider Active General Hardware Salesperson Relationship Specialty Start Date End Date Howard Zimmerman Chi PCP - General Gerontology 11/23/14 General Hardware Salesperson Relationship Specialty Start Date End Date Howard Zimmerman Chi PCP - General Gerontology 11/23/14 General Hardware Salesperson Relationship Specialty Start Date End Date Howard [...] Primary Care Provider Active Dr. Germán Benson DO Emergency Provider Active Dr. Gonzalez Garza , DO Admit Provider, Attending Pro vider Active Team Status: Active Member Role Status Dates Dr. Howard Zimmerman MD Primary Care Provider Active Dr. Germán Benson DO Emergency Provider Active Dr. Gonzalez Garza [...] MD Other Provider Active Dr. Paige Martinez , Other Provider Active Dr. Timothy Fortune MD [...] Shine MD Other Provider Active Koko Mckeon , Other Provider Active Ashlee Bautista MD Other Provider Active ERIC BATRES MD Other Provider Active Eri Interiano MD Other Provider Active Dr. Alayna Valverde MD Other Provider Active Reji Reid MD Other Provider Active Marly Ochoa MD Other Provider Active Carlos Whipple MD Other Provider Active Darcy Hernandez MD Other Provider Active Dr. Paige Martinez , Other Provider Active Dr. Timothy Fortune MD [...] Provi misha, Admit Provider, Attending Provider Active General Hardware Salesperson Relationship Specialty Start Date End Date Howard Zimmerman Chi PCP - General Gerontology 11/23/14 Team Status: Inactive Member Role Status Dates Dr. Howard Zimmerman MD Primary Care Provider Active Odalis MERCER MD Attending Provider, Referring Provider Active Team Status: Active Member Role Status Dates Dr. Howard Zimmerman MD Primary Care Provider Active Odalis MERCER MD Attending Provider Active General Hardware Salesperson Relationship Specialty Start Date End Date Howard Zimmerman Chi PCP - General Gerontology 11/23/14 General Hardware Salesperson Relationship Specialty Start Date End Date Howard [...] 2024 End: May 29, 2024 Pam Pack AUTOMOTIVE GLASS INSTALLER, AUTOMOTIVE GLASS INSTALLER-C Attending Provider Active Start: May 29, 2024 [...] 2024 End: July 31, 2024 Pam Pack AUTOMOTIVE GLASS INSTALLER, AUTOMOTIVE GLASS INSTALLER-C Attending Provider Active Start: July 31, 2024 [...] September 11, 2024 End: September 11, 2024 General Hardware Salesperson Relationship Specialty Start Date End Date Howard [...] Attending Provider Active Start: October 23, 2024 Team Status: Inactive Member Role Status Dates Dr. Howard Zimmerman MD Primary Care Provider Active Start: September 17, 2024 End: September 17, 2024 Pam Pack NP AUTOMOTIVE GLASS INSTALLER-C Attending Provider Active Start: September 17, 2024 End: September 17, 2024 Team Status: Active Member Role Status Dates Dr. Howard Zimmerman MD Primary Care Provider Active Start: October 23, 2024 Odalis MERCER MD Attending Provider Active Start: October 23, 2024 Odalis MERCER MD Referring Provider Active Start: October 23, 2024 Team Status: Active Member Role Status Dates Dr. Howard Zimmerman MD Primary Care Provider Active Start: November 27, 2024 Odalis MERCER MD Attending Provider Active Start: November 27, 2024 Team Status: Inactive Member Role Status Dates Dr. Howard Zimmerman MD Primary Care Provider Active Start: November 07, 2024 End: November 07, 2024 Pam Pack NP, NP-C Attending Provider Active Start: November 07, 2024 End: November 07, 2024 Goals (unrecognized section and content) Goals [...] BE BASED ON THE PRIMARY CLINICAL RECORDS. [employer] provides no warranty or guarantee of the accuracy or completeness of information in this document.
[2025-01-02 07:24] LABS: Hematocrit 33.7 % (37-47); Hemoglobin 11.3 g/dL (12.0-15.0); Immature Granulocytes Count 0.030 X10^3/uL (0.0-0.0); Mean Corp Hgb Conc 33.5 g/dL (32-36); Mean Corpuscular Volume 94.7 fL (81-99); Mean Platelet Vol. 10.3 fl (6.2-12.0); NRBC Flagged by Analyzer 0 % (0-5); POSITIVE DIFFERENTIAL YES; POSITIVE MORPHOLOGY YES; Platelet Count 372 K/mm3 (150-450); RBC Distribution Width CV 13.3 % (11.6-14.6); RBC Distribution Width SD 46.4 fl (35.1-43.9); Red Blood Count 3.56 M/mm3 (4.2-5.4); White Blood Count 15.6 K/mm3 (4.4-11.0)
[2025-01-02 07:34] LABS: Differential Indicated SCAN CRITERIA MET
[2025-01-02 07:39] LABS: Anion Gap 12 (5-15); BUN 27 mg/dL (4-19); BUN/Creat Ratio 23.5 RATIO (10-20); Calcium,Total 9.4 mg/dL (7.6-11.0); Carbon Dioxide 22.6 mmol/L (21.0-32.0); Chloride 101 mmol/L (98-108); Glucose 87 mg/dL (70-99); Potassium 4.3 mmol/L (3.3-5.1)
== END ==
LOC: OLS.WHLTSB 05:00
PROVIDERS: PCP Family Medicine Geriatric Medicine; Visit Provider Internal Medicine
DX: R55 Syncope and collapse (principal); G20.C Parkinsonism, unspecified
CPT/HCPCS: 36415; 80048; 85025

== ENCOUNTER → 2025-01-29 | Outpatient (REF) | payer MEDICARE, SELFPAY ==
[2025-01-29 09:05] LABS: Hematocrit 34.8 % (37-47); Hemoglobin 11.6 g/dL (12.0-15.0); Immature Granulocytes Count 0.030 X10^3/uL (0.0-0.0); Mean Corp Hgb Conc 33.3 g/dL (32-36); Mean Corpuscular Volume 96.4 fL (81-99); Mean Platelet Vol. 10.1 fl (6.2-12.0); NRBC Flagged by Analyzer 0 % (0-5); POSITIVE DIFFERENTIAL YES; Platelet Count 365 K/mm3 (150-450); RBC Distribution Width CV 13.4 % (11.6-14.6); RBC Distribution Width SD 47.9 fl (35.1-43.9); Red Blood Count 3.61 M/mm3 (4.2-5.4); White Blood Count 14.0 K/mm3 (4.4-11.0)
[2025-01-29 09:26] LABS: Differential Indicated SCAN CRITERIA MET
[2025-01-29 10:03] LABS: Differential Comment SCANNED
[2025-01-29 10:24] LABS: AST(SGOT) 32 U/L (<=31); Alanine Aminotransfer ALT/SGPT 13 U/L (<=34); Albumin, Serum 3.9 g/dL (3.4-4.8); Alkaline Phosphatase 166 U/L (35-104); Anion Gap 12 (5-15); BUN 28 mg/dL (4-19); BUN/Creat Ratio 27.0 RATIO (10-20); Bilirubin, Direct 0.13 mg/dL (0.00-0.30); Calcium,Total 9.4 mg/dL (7.6-11.0); Carbon Dioxide 23.9 mmol/L (21.0-32.0); Chloride 102 mmol/L (98-108); Globulin 2.7 g/dL (2.2-4.2); Glucose 83 mg/dL (70-99); Potassium 4.4 mmol/L (3.3-5.1); Vitamin B12 1118 pg/mL (180-914); Vitamin D,25 Hydroxy 45.0 ng/mL (30-100)
== END ==
LOC: OLS.WHLTSB 05:00
PROVIDERS: PCP Family Medicine Geriatric Medicine; Visit Provider Internal Medicine
DX: G20.C Parkinsonism, unspecified (principal); N18.30 Chronic kidney disease, stage 3 unspecified
CPT/HCPCS: 36415; 80048; 80076; 82306; 82607; 85025

== ENCOUNTER → 2025-02-13 | Outpatient (CLI) | payer SELFPAY ==
[2025-02-13 15:13] LABS: SERUM TEARS COLLECTION SPECIMEN PROCESSED
== END | disposition home or self-care (01) ==
LOC: LAB 13:04
PROVIDERS: PCP Family Medicine Geriatric Medicine; Referring Provider Internal Medicine; Visit Provider Internal Medicine
DX: Z00.00 Encounter for general adult medical examination without abnormal findings (principal)

== ENCOUNTER → 2025-02-26 05:00 | Outpatient (REF) | payer MEDICARE, SELFPAY ==
[2025-02-26 09:28] LABS: Hematocrit 36.3 % (37-47); Hemoglobin 11.9 g/dL (12.0-15.0); Immature Granulocytes Count 0.070 X10^3/uL (0.0-0.0); Mean Corp Hgb Conc 32.8 g/dL (32-36); Mean Corpuscular Volume 96.5 fL (81-99); Mean Platelet Vol. 10.4 fl (6.2-12.0); NRBC Flagged by Analyzer 0 % (0-5); POSITIVE DIFFERENTIAL YES; POSITIVE MORPHOLOGY YES; Platelet Count 330 K/mm3 (150-450); RBC Distribution Width CV 13.3 % (11.6-14.6); RBC Distribution Width SD 47.5 fl (35.1-43.9); Red Blood Count 3.76 M/mm3 (4.2-5.4); White Blood Count 18.8 K/mm3 (4.4-11.0)
[2025-02-26 09:32] LABS: Differential Indicated SCAN CRITERIA MET
[2025-02-26 09:42] LABS: Anion Gap 11 (5-15); BUN 32 mg/dL (4-19); BUN/Creat Ratio 31.2 RATIO (10-20); Calcium,Total 9.2 mg/dL (7.6-11.0); Carbon Dioxide 24.0 mmol/L (21.0-32.0); Chloride 103 mmol/L (98-108); Glucose 85 mg/dL (70-99); Potassium 4.4 mmol/L (3.3-5.1)
[2025-02-26 10:19] LABS: Reactive Lymphocyte 2+
== END ==
LOC: OLS.WHLTSB 05:00
PROVIDERS: PCP Family Medicine Geriatric Medicine; Visit Provider Internal Medicine
DX: G20.C Parkinsonism, unspecified (principal); S42.201D Unspecified fracture of upper end of right humerus, subsequent encounter for fracture with routine healing; K08.89 Other specified disorders of teeth and supporting structures; N18.30 Chronic kidney disease, stage 3 unspecified
CPT/HCPCS: 36415; 80048; 85025

== ENCOUNTER → 2025-03-16 | Outpatient (REF) | payer MEDICARE, SELFPAY ==
--- OUTSIDE RECORDS SUMMARY | 2024-10-20 10:46 | XMS RPT_ITS ---
Author Name Auto Generated Organization OHIP Care Team Providers Care Truss Maker Name Role Phone SELVIN LOWE Attending Unavailable TAYE, CHRIS CHI Primary Care Unavailable SELVIN LOWE Referring Unavailable TAYE, CHRIS CHI Primary Care Unavailable SELVIN LOWE Referring Unavailable SELVIN LOWE Attending Unavailable PROBLEMS DATE TYPE CONDITION / CODE ATTENDING STATUS [facility] 09/15/2011 Active Parkinson's dise ase 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) / G20.A1(ICD-10) SELVIN LOWE Active [facility] 10/20/2024 Active Neurogenic ortho static hypotension (HCC) / G90.3(ICD-10) SELVIN LOWE Active [facility] PROCEDURES No Procedure Records Found RESULTS PROGRESS Observed: 10/20/2024 11:36 AM Status: COMPLETED Source: [facility] HNO ID: [id number] Author: SELVIN LOWE MD Service: ? Author Type: Physician Type: Progress Notes Filed: 10/20/2024 11:40 Note Text: [facility] - FOLLOW UP EVALUATION Primary Movement Disorders Neurologist: Selvin Lowe MD Primary Movement Disorders TONE: Not yet assigned Recording using [employer] software for draft documentation of the visit was discussed with the patient/authorized sales representative printing; all questions welcomed and answered. Patient/authorized sales representative printing agreed to proceed Chris Zimmerman MD [address] [facility] [address] [facility] [id number] Dear Chris Zimmerman MD: I had the pleasure of seeing Ms. Haynes for follow-up today. As you know she is a 89 year old left-handed female with a history of IPD since 2009. She is seen with a son. Subjective Previous Plan- 04/21/2024 Visit: For Parkinson's - we will change the dose timing as below. If you are not making it through the night you may need a 4th dose. Continue with exercise and therapy - exercise Interval History: Addis is an 89-year-old female with a history of Parkinson's disease presenting with fatigue, lightheadedness, and hand contractures. Addis reports feeling lightheaded upon waking in the morning, necessitating a period of sitting on the side of the bed to get her bearings. She describes this sensation as a potential precursor to passing out. She also experiences lightheadedness during the day after sitting for extended periods. She notes that her blood pressure is generally well-controlled, but a few weeks ago, she experienced some falls attributed to low blood pressure. She is currently taking midodrine 15 mg at 7:00 AM and 12:00 PM, and 5 mg at 5:00 PM, with instructions to hold the medication if her systolic blood pressure exceeds 140 mmHg. She drinks approximately one 12-ounce bottle of water daily, limiting her intake to avoid frequent bathroom trips. She occasionally drinks coffee with breakfast and sometimes during the day. She does not endorse any fluid restrictions advised by a family service aide. She reports persistent fatigue, stating, I just don't feel like I want to do anything. She believes she sleeps well at night and sometimes takes naps during the day. She does not attribute her fatigue to her Parkinson's medication (carbidopa-levodopa). She does not endorse feeling more tired after taking the medication and does not report any issues with the medication wearing off between doses. She does not endorse hallucinations, memory changes, or acting out dreams. She experiences dyskinesia, which she describes as manageable and not significantly bothersome. She does not report any weight loss or trouble swallowing. She notes dry mouth, particularly at night, for which she uses throat lozenges. She has contractures in both hands, more severe in the left, preventing her from fully opening them. She has been evaluated by orthopedics and has tried braces without improvement. She is currently receiving occupational therapy for her hands and physical therapy for balance and leg exercises. She is not allowed to walk unassisted due to fall risk. Recent falls have been attributed to both low blood pressure and balance issues. Past Diagnostic Results: Labs - (12/21/2023) - Vitamin B12: 880 pg/mL - Vitamin D: 49 ng/mL Movement Disorders Medications Schedule - as of the start of the visit: Medications 9 1p 6p Sinemet 25/100 2 2 2 midodrine 5 mg 3 3 1 Parkinson's Motor Complications Medication duration: 5 hours Wearing off: no Dyskinesia: yes Prior Anti-Parkinson Therapies Carbidopa/Levodopa Questionnaires: In addition, the following areas that may be affected by abnormal involuntary movements were evaluated: Daily activities Difficulties with eating: Yes (mild) Difficulties in dressing: Yes (mild) Difficulties with hygiene activities: Yes (mild) Difficulties with handwriting: Yes (mild) Difficulties with doing hobbies and other activities: Yes (mild) Difficulties turning in bed: Yes (slight) Difficulties getting out of bed, car or chair: Yes (mild) Tremors/Gait/Balance Shaking or tremors: Yes (slight) Walking and balance problems: Yes (moderate) Number of falls in the Last Month: 3 Gait freezin (none) Autonomic/Pain Lightheadeness on standing: Yes (mild) Urinary problems: Yes (slight) Constipation problems: 0 (none) Pain and other sensations: Yes (mild) Speech/Swallowing Speech problems: Yes (slight) Droolin (none) Chewing and swallowing problems: 0 (none) Sleep/Fatigue Sleep problems: 0 (none) Daytime sleepiness: Yes (mild) Fatigue: Yes (mild) Mood/Behavior Depression: PHQ-9 Score: 3 usually representing no significant (0-4) depression. Anxiety: JOHNNIE-7 Total Score: 0 usually representing no significant (0-4) anxiety. Finally, the following table shows the patient's overall global physical and mental health using the PROMIS scale: PROMIS-10 Flowsheet Row Office Visit from 10/20/2024 in Neurology Office Visit from 10/18/2023 in Neurology Global Physical Health T Score 37.4 39.8 Global Mental Health T Score 53.3 53.3 0-10 Standard Pain Scale 3 4 *PROMIS-10 scoring scale: mean = 50, over 50 is above average, under 50 is below average ALLERGIES Allergen Reactions Penicillins Rash Risperidone Unknown Tramadol GI Upset Current Outpatient Medications Medication Sig carbidopa-levodopa (SINEMET) 25-100 mg per tablet 2 tablet 3 times a day at 8am, 1pm and 6pm. PLEASE NOTE DOSING TIME CHANGES (Patient taking differently: 2 tab TID 6am-8am, 12pm-2pm and 6pm-8pm) lactose-reduced food (BOOST HIGH PROTEIN ORAL) Take by mouth. Acetaminophen 500 mg cap Take by mouth. 1000 TID for pain autologous serum 20% ophth drops Use 1 Drop in both eyes three times a day. Refrigerate, Discard in 7 days, Keep unopened bottles in Freezer Dose not specified on facility med list midodrine (PROAMITINE) 5 mg tablet Take 5 mg by mouth three times a day. Hold for Bp greater than 130 No current facility-administered medications for this visit. Objective Vital Signs: Wt 43.4 kg (95 lb 10.9 oz) SpO2 96% BMI 18.08 kg/m? Orthostatic Vitals: Sitting: BP 131/73 Pulse 82 Standing: BP 87/60 Pulse 98 Weight: 43.4 kg (95 lb 10.9 oz) No LMP recorded. Patient is postmenopausal. Body mass index is 18.08 kg/m?. Neurological Exam Mental Status Awake and alert. Language is fluent with no aphasia. Movement Disorders Scales Performed: MDS-UPDRS Motor subscale condition of exam Medication Off/On/Naiive ON Time of UPDRS 1121 Time of Last Medication 0800 Last Medication Taken Sinemet 25/100 mg 2 tab DBS Right N/A DBS Left N/A MDS-UPDRS Motor subscale scores Speech 2-Mild. Loss of modulation, diction, or volume, with a few words unclear, but the overall sentences easy to follow. Facial Expression 1-Slight. Minimal masked facies manifested [...] in the 10-tap sequence. Finger Taps Left 2-Mild. a) 3 to 5 interruptions during tapping, b) mild slowing, c) the amplitude decrements midway in the 10-tap sequence. Hand Movements Right 0-Normal. No problem. Hand Movements Left 1-Slight. a) the regular rhythm is broken with one or two interruptions or hesitations of the movement, b) slight slowing, c) the amplitude decrements near the end of the task. Arm Movements Right 0-Normal. No problems. Arm Movements Left 0-Normal. No problems. Toe Taps Right 2-Mild. a) 3 to 5 interruptions during the tapping movements, b) mild slowing, c) the amplitude decrements midway in the task. Toe Taps Left 0-Normal. No problem. Leg Agility Right 0-Normal. No problems. Leg Agility Left 0-Normal. No problems. Arise From Chair 2-Mild. Pushes self up from arms of chair without difficulty. Gait 3-Moderate. Requires an assistance device for safe walking (walking stick, walker) but not a person. Gait Freezing 0-Normal. No freezing. Posture Stability 0-Normal. No problems: recovers with one or two steps. (deferred) Posture 2-Mild. Definite flexion, scoliosis or [...] tremor. MDS-UPDRS Motor subscale totals Left Total 3 Right Total 4 Midline Total 11 Tremor Total / 10 0 PIGD Total / 3 3 Overall Total 18 Change Better/Worse WORSE % Change Compared to Last Filed Total (!) 50 Assessment and Plan: Assessment Ms. Haynes is a left-handed 89 year old year old female with IPD since 2009. The following are the current problems noted and addressed during this visit: Parkinson's disease without dyskinesia or fluctuating manifestations (hcc) (primary encounter diagnosis) Neurogenic orthostatic hypotension (hcc) Plan 10/20/2024 Visit: 1. Parkinson's disease 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) (G20.A1) - Patient exhibits mild dyskinesia, manageable without additional medication changes. - Current medication regimen of carbidopa-levodopa is effective; no changes needed. - Engaged in physical and occupational therapy; exercises include leg strengthening and hand therapy. - Encouraged continuation of therapy as long as covered by insurance; advised to maintain exercises independently thereafter. - No issues with medication timing; doses administered consistently. - No reports of REM sleep behavior disorder, hallucinations, or significant memory changes. - Weight stable; no concerns about weight loss. 2. Neurogenic orthostatic hypotension (HCC) (G90.3) - Experiencing episodes of lightheadedness upon standing, with occasional falls attributed to hypotension and balance issues. - Current medication regimen includes midodrine 15 mg at 0700 and 1200, and 5 mg at 1700; effective in managing blood pressure. - Advised to increase fluid intake to at least 60 ounces of water/Gatorade daily to improve blood pressure stability. - Official order placed to encourage water and Gatorade consumption. - Patient understands the importance of hydration and agrees to the plan. Patient's perception of importance for healthcare provider to let them know of research trials for which they may be eligible? Not very important Interested in clinical research? Not discussed Updated Movement Disorders Medication Schedule: Medications 9 1p 6p Sinemet 25/100 2 2 2 midodrine 5 mg 3 3 1 Return at or around: 04/22/25 Level of service : 43931 ( 30-39 min). Time spent 34 min on the day of service, which included preparing to see the patient, [id number] patient care, completing clinical documentation, performing a medically appropriate examination, and counseling and educating the patient/family/caregiver. Thank you for allowing me to be part of the clinical care of this patient! I look forward to continued participation in the patient?s care with you. Please do not hesitate to call with any questions. Sincerely, MD ANAHI QuirosOV Observed: 10/20/2024 11:00 AM Status: COMPLETED Source: [facility] Office Visit (NRMDN) ADDIS HAYNES ([id number]) 1935 F Date Time Provider Department 10/20/24 11:00 AM SELVIN LOWE NRMDN During your visit today, we recorded the following information about you: Weight 43.4 kg Selvin Lowe MD 10/20/2024 11:31 AM Addendum It was a pleasure to see you today. We addressed the following diagnoses: Parkinson's disease without dyskinesia or fluctuating manifestations (hcc) (primary encounter diagnosis) Neurogenic orthostatic hypotension (hcc) My recommendations are as follows: Increase your fluid intake. You are ordered to try have about 60 ounces of water/Gatorade daily. Continue midodrine as ordered When getting out of bed or standing up, take your time and sit briefly to allow your body to adjust and avoid feeling lightheaded. Continue with your physical and occupational therapy sessions for balance, walking, and hand exercises as currently scheduled by your therapy team. Keep taking your Parkinson?s medications on the usual schedule. Movement Disorders Medication Schedule: Medications 9 1p 6p Sinemet 25/100 2 2 2 midodrine 5 mg 3 3 1 No follow-ups on file. If there are any concerns before your next visit, please call or you can send a message through for; to (do). You can also now schedule and select appointments through for; to (do). MD Chrissy Quiros Kristin, MD 10/20/2024 11:40 AM Signed [facility] - FOLLOW UP EVALUATION Primary Movement Disorders Neurologist: Selvin Lowe MD Primary Movement Disorders TONE: Not yet assigned Recording using [employer] software for draft documentation of the visit was discussed with the patient/authorized sales representative printing; all questions welcomed and answered. Patient/authorized sales representative printing agreed to proceed Chris Zimmerman MD [id number] [address] Dear Chris Zimmerman MD: I had the pleasure of seeing Ms. Haynes for follow-up today. As you know she is a 89 year old left-handed female with a history of IPD since 2009. She is seen with a son. Subjective Previous Plan- 04/21/2024 Visit: For Parkinson's - we will change the dose timing as below. If you are not making it through the night you may need a 4th dose. Continue with exercise and therapy - exercise Interval History: Addis is an 89-year-old female with a history of Parkinson's disease presenting with fatigue, lightheadedness, and hand contractures. Addis reports feeling lightheaded upon waking in the morning, necessitating a period of sitting on the side of the bed to get her bearings. She describes this sensation as a potential precursor to passing out. She also experiences lightheadedness during the day after sitting for extended periods. She notes that her blood pressure is generally well-controlled, but a few weeks ago, she experienced some falls attributed to low blood pressure. She is currently taking midodrine 15 mg at 7:00 AM and 12:00 PM, and 5 mg at 5:00 PM, with instructions to hold the medication if her systolic blood pressure exceeds 140 mmHg. She drinks approximately one 12-ounce bottle of water daily, limiting her intake to avoid frequent bathroom trips. She occasionally drinks coffee with breakfast and sometimes during the day. She does not endorse any fluid restrictions advised by a family service aide. She reports persistent fatigue, stating, I just don't feel like I want to do anything. She believes she sleeps well at night and sometimes takes naps during the day. She does not attribute her fatigue to her Parkinson's medication (carbidopa-levodopa). She does not endorse feeling more tired after taking the medication and does not report any issues with the medication wearing off between doses. She does not endorse hallucinations, memory changes, or acting out dreams. She experiences dyskinesia, which she describes as manageable and not significantly bothersome. She does not report any weight loss or trouble swallowing. She notes dry mouth, particularly at night, for which she uses throat lozenges. She has contractures in both hands, more severe in the left, preventing her from fully opening them. She has been evaluated by orthopedics and has tried braces without improvement. She is currently receiving occupational therapy for her hands and physical therapy for balance and leg exercises. She is not allowed to walk unassisted due to fall risk. Recent falls have been attributed to both low blood pressure and balance issues. Past Diagnostic Results: Labs - (12/21/2023) - Vitamin B12: 880 pg/mL - Vitamin D: 49 ng/mL Movement Disorders Medications Schedule - as of the start of the visit: Medications 9 1p 6p Sinemet 25/100 2 2 2 midodrine 5 mg 3 3 1 Parkinson's Motor Complications Medication duration: 5 hours Wearing off: no Dyskinesia: yes Prior Anti-Parkinson Therapies Carbidopa/Levodopa Questionnaires: In addition, the following areas that may be affected by abnormal involuntary movements were evaluated: Daily activities Difficulties with eating: Yes (mild) Difficulties in dressing: Yes (mild) Difficulties with hygiene activities: Yes (mild) Difficulties with handwriting: Yes (mild) Difficulties with doing hobbies and other activities: Yes (mild) Difficulties turning in bed: Yes (slight) Difficulties getting out of bed, car or chair: Yes (mild) Tremors/Gait/Balance Shaking or tremors: Yes (slight) Walking and balance problems: Yes (moderate) Number of falls in the Last Month: 3 Gait freezin (none) Autonomic/Pain Lightheadeness on standing: Yes (mild) Urinary problems: Yes (slight) Constipation problems: 0 (none) Pain and other sensations: Yes (mild) Speech/Swallowing Speech problems: Yes (slight) Droolin (none) Chewing and swallowing problems: 0 (none) Sleep/Fatigue Sleep problems: 0 (none) Daytime sleepiness: Yes (mild) Fatigue: Yes (mild) Mood/Behavior Depression: PHQ-9 Score: 3 usually representing no significant (0-4) depression. Anxiety: JOHNNIE-7 Total Score: 0 usually representing no significant (0-4) anxiety. Finally, the following table shows the patient's overall global physical and mental health using the PROMIS scale: PROMIS-10 Flowsheet Row Office Visit from 10/20/2024 in Neurology Office Visit from 10/18/2023 in Neurology Global Physical Health T Score 37.4 39.8 Global Mental Health T Score 53.3 53.3 0-10 Standard Pain Scale 3 4 *PROMIS-10 scoring scale: mean = 50, over 50 is above average, under 50 is below average ALLERGIES Allergen Reactions Penicillins Rash Risperidone Unknown Tramadol GI Upset Current Outpatient Medications Medication Sig carbidopa-levodopa (SINEMET) 25-100 mg per tablet 2 tablet 3 times a day at 8am, 1pm and 6pm. PLEASE NOTE DOSING TIME CHANGES (Patient taking differently: 2 tab TID 6am-8am, 12pm-2pm and 6pm-8pm) lactose-reduced food (BOOST HIGH PROTEIN ORAL) Take by mouth. Acetaminophen 500 mg cap Take by mouth. 1000 TID for pain autologous serum 20% ophth drops Use 1 Drop in both eyes three times a day. Refrigerate, Discard in 7 days, Keep unopened bottles in Freezer Dose not specified on facility med list midodrine (PROAMITINE) 5 mg tablet Take 5 mg by mouth three times a day. Hold for Bp greater than 130 No current facility-administered medications for this visit. Objective Vital Signs: Wt 43.4 kg (95 lb 10.9 oz) SpO2 96% BMI 18.08 kg/m? Orthostatic Vitals: Sitting: BP 131/73 Pulse 82 Standing: BP 87/60 Pulse 98 Weight: 43.4 kg (95 lb 10.9 oz) No LMP recorded. Patient is postmenopausal. Body mass index is 18.08 kg/m?. Neurological Exam Mental Status Awake and alert. Language is fluent with no aphasia. Movement Disorders Scales Performed: MDS-UPDRS Motor subscale condition of exam Medication Off/On/Naiive ON Time of UPDRS 1121 Time of Last Medication 0800 Last Medication Taken Sinemet 25/100 mg 2 tab DBS Right N/A DBS Left N/A MDS-UPDRS Motor subscale scores Speech 2-Mild. Loss of modulation, diction, or volume, with a few words unclear, but the overall sentences easy to follow. Facial Expression 1-Slight. Minimal masked facies manifested [...] in the 10-tap sequence. Finger Taps Left 2-Mild. a) 3 to 5 interruptions during tapping, b) mild slowing, c) the amplitude decrements midway in the 10-tap sequence. Hand Movements Right 0-Normal. No problem. Hand Movements Left 1-Slight. a) the regular rhythm is broken with one or two interruptions or hesitations of the movement, b) slight slowing, c) the amplitude decrements near the end of the task. Arm Movements Right 0-Normal. No problems. Arm Movements Left 0-Normal. No problems. Toe Taps Right 2-Mild. a) 3 to 5 interruptions during the tapping movements, b) mild slowing, c) the amplitude decrements midway in the task. Toe Taps Left 0-Normal. No problem. Leg Agility Right 0-Normal. No problems. Leg Agility Left 0-Normal. No problems. Arise From Chair 2-Mild. Pushes self up from arms of chair without difficulty. Gait 3-Moderate. Requires an assistance device for safe walking (walking stick, walker) but not a person. Gait Freezing 0-Normal. No freezing. Posture Stability 0-Normal. No problems: recovers with one or two steps. (deferred) Posture 2-Mild. Definite flexion, scoliosis or [...] tremor. MDS-UPDRS Motor subscale totals Left Total 3 Right Total 4 Midline Total 11 Tremor Total / 10 0 PIGD Total / 3 3 Overall Total 18 Change Better/Worse WORSE % Change Compared to Last Filed Total (!) 50 Assessment and Plan: Assessment Ms. Haynes is a left-handed 89 year old year old female with IPD since 2009. The following are the current problems noted and addressed during this visit: Parkinson's disease without dyskinesia or fluctuating manifestations (hcc) (primary encounter diagnosis) Neurogenic orthostatic hypotension (hcc) Plan 10/20/2024 Visit: 1. Parkinson's disease 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) (G20.A1) - Patient exhibits mild dyskinesia, manageable without additional medication changes. - Current medication regimen of carbidopa-levodopa is effective; no changes needed. - Engaged in physical and occupational therapy; exercises include leg strengthening and hand therapy. - Encouraged continuation of therapy as long as covered by insurance; advised to maintain exercises independently thereafter. - No issues with medication timing; doses administered consistently. - No reports of REM sleep behavior disorder, hallucinations, or significant memory changes. - Weight stable; no concerns about weight loss. 2. Neurogenic orthostatic hypotension (HCC) (G90.3) - Experiencing episodes of lightheadedness upon standing, with occasional falls attributed to hypotension and balance issues. - Current medication regimen includes midodrine 15 mg at 0700 and 1200, and 5 mg at 1700; effective in managing blood pressure. - Advised to increase fluid intake to at least 60 ounces of water/Gatorade daily to improve blood pressure stability. - Official order placed to encourage water and Gatorade consumption. - Patient understands the importance of hydration and agrees to the plan. Patient's perception of importance for healthcare provider to let them know of research trials for which they may be eligible? Not very important Interested in clinical research? Not discussed Updated Movement Disorders Medication Schedule: Medications 9 1p 6p Sinemet 25/100 2 2 2 midodrine 5 mg 3 3 1 Return at or around: 04/22/25 Level of service : [id number] ( 30-39 min). Time spent 34 min on the day of service, which included preparing to see the patient, [id number] patient care, completing clinical documentation, performing a medically appropriate examination, and counseling and educating the patient/family/caregiver. Thank you for allowing me to be part of the clinical care of this patient! I look forward to continued participation in the patient?s care with you. Please do not hesitate to call with any questions. Sincerely, Selvin Lowe MD Referring Provider: SELVIN LOWE [[id number]] Allergies As of Date: 10/20/2024 Noted Allergy Reaction PENICILLINS 05/15/2005 2 - Rash RISPERIDONE 04/18/2024 16 - Unknown TRAMADOL 01/10/2007 8 - GI Upset Date Reviewed: 10/20/2024 Reviewed by: Selvin Lowe MD - Fully Assessed Reason for Visit: Parkinson's Disease [582] Primary Visit Diagnosis:Parkinson's disease 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) [G20.A1] Other Visit Diagnosis:Neurogenic orthostatic hypotension (HCC) [G90.3] Order(s):PROVIDER ORDERED FOLLOW UP [[id number]] Order #: [id number]: 1 PROVIDER ORDERED FOLLOW UP [[id number]] Order #: [id number]: 1 FUTURE Prescriptions as of 10/20/2024 - carbidopa-levodopa (SINEMET) 25-100 mg per tablet 2 tablet 3 times a day at 8am, 1pm and 6pm. PLEASE NOTE DOSING TIME CHANGES - lactose-reduced food (BOOST HIGH PROTEIN ORAL) Take by mouth. - Acetaminophen 500 mg cap Take by mouth. 1000 TID for pain - autologous serum 20% ophth drops Use 1 Drop in both eyes three times a day. Refrigerate, Discard in 7 days, Keep unopened bottles in Freezer Dose not specified on facility med list - midodrine (PROAMITINE) 5 mg tablet Take 5 mg by mouth three times a day. 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 We addressed the following diagnoses: Parkinson's disease without dyskinesia or fluctuating manifestations (hcc) (primary encounter diagnosis) Neurogenic orthostatic hypotension (hcc) My recommendations are as follows: Increase your fluid intake. You are ordered to try have about 60 ounces of water/Gatorade daily. Continue midodrine as ordered When getting out of bed or standing up, take your time and sit briefly to allow your body to adjust and avoid feeling lightheaded. Continue with your physical and occupational therapy sessions for balance, walking, and hand exercises as currently scheduled by your therapy team. Keep taking your Parkinson?s medications on the usual schedule. Movement Disorders Medication Schedule: Medications 9 1p 6p Sinemet 25/100 2 2 2 midodrine 5 mg 3 3 1 No follow-ups on file. If there are any concerns before your next visit, please call or you can send a message through for; to (do). You can also now schedule and select appointments through for; to (do). Selvin Lowe MD Level of Service: OFFICE/OUTPATIENT ESTABLISHED MOD MDM 30 MIN [02540] Additional E/M codes: VISIT CPLX INHERENT EANDM ASSOC WITH MED * Encounter Status:Closed by SELVIN LOWE on 10/20/24 PROGRESS Observed: 04/21/2024 11:22 AM Status: COMPLETED Source: [facility] Author: SELVIN LOWE MD Service: ? Author Type: Physician Type: Progress Notes Filed: 04/21/2024 19:56 Note Text: [facility] - FOLLOW UP EVALUATION Chris Zimmerman MD [address] [facility] [address] [facility] [id number] I had the pleasure of seeing Ms. Haynes for follow up today. She is a 88 year old left-handed female with a history of IPD since 2009. She is seen with a son. Subjective Previous Plan-10/18/2023 Visit: Please talk to your eye doctor about the double vision - Continue your medications as you have been taking them. We are not making any changes today. If you feel you are not tolerating them or your symptoms are changing before your next appointment, please feel free to send me a [employer] message or contact the office - It is important for her Parkinson's medications to be given as close to the ordered time as possible in order to manage Parkinson's disease most effectively for the reasons below: Dopamine Balance: Most drug treatments for Parkinson's work by topping up dopamine in the brain or acting as a substitute for dopamine. Dopamine is a neurotransmitter that plays a boyd role in movement control. Without enough dopamine, the symptoms of Parkinson's appear. When someone with Parkinson's doesn't receive their medication on time, their dopamine levels may drop, leading to poorly controlled symptoms Symptom Management: Properly timed Sinemet doses help manage symptoms such as tremors, rigidity, and bradykinesia (slowness of movement). When taken consistently, Sinemet helps maintain a stable dopamine level, allowing individuals to function better in their daily lives. Avoiding Fluctuations: Parkinson's medications can lead to fluctuations in symptom severity. Taking doses on time minimizes these fluctuations. Delaying doses can cause sudden worsening of symptoms, affecting mobility, balance, and overall well-being. Side Effects: If someone forgets a dose and takes it later, they might experience side effects like nausea or dizziness. Taking two doses together to compensate for a missed dose is not recommended. Continue PT, exercise - Interval History: Unsteady. Exercises. In therapy. OT for fingers. PT sees her too. Doses lasting 5 hours. Does notice wearing off. In bed by 9 but not necessarily asleep. Up at night with help. Parkinson's Medication Schedule - as of the start of the visit: Medications 9 2 9 Sinemet 25/100 2 2 2 midodrine Parkinson's Motor Complications Medication duration: 5 hours Wearing off: no (Comment: little bit. if late) Dyskinesia: yes Prior Anti-Parkinson Therapies Carbidopa/Levodopa Questionnaires In addition, the following areas that may be affected by abnormal involuntary movements were evaluated: Daily activities Difficulties with eating: help cutting meat, not new Difficulties in dressing: sometimes is helped. some trouble getting arm Difficulties with hygiene activities: assisted Difficulties with handwriting: Difficulties with doing hobbies and other activities: Difficulties turning in bed: Difficulties getting out of bed, car or chair: can usually do it. sometimes needs a boost from chair Tremors/Gait/Balance Shaking or tremors: Walking and balance problems: yes Number of falls in the Last Month: no Gait freezing: Autonomic/Pain Lightheadeness on standing: in the morning off balance vs low BP. sometimes lightheaded Urinary problems: average for age Constipation problems: sometimes. doesn't take anything Pain and other sensations: Speech/Swallowing Speech problems: Drooling: little bit Chewing and swallowing problems: no Sleep/Fatigue Sleep problems: nocturia 2- 3 times. generally sleeps well. Daytime sleepiness: Fatigue: In addition, the following non-motor symptoms and palliative concerns were evaluated: Sleep/Fatigue: REM sleep behavior disorder: Yes Occasionally. no safety concerns Restless Legs Syndrome: Yes some Leg swelling: Impaired sense of smell: Cognition: Cognitive impairment: no reasonable for age MoCA Cognitive assessment: Hallucinations and delusions: yes Occasionally. Animals. Insight retained. 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 Acetaminophen 500 mg cap Take by mouth. 1000 TID for pain autologous serum 20% ophth drops Use 1 Drop in both eyes three times a day. Refrigerate, Discard in 7 days, Keep unopened bottles in Freezer Dose not specified on facility med list midodrine (PROAMITINE) 5 mg tablet Take 5 mg by mouth three times a day. Hold for Bp greater than 130 carbidopa-levodopa (SINEMET) 25-100 mg per tablet 2 tablet 3 times a day at 8am, 1pm and 6pm. PLEASE NOTE DOSING TIME CHANGES No current facility-administered medications for this visit. Objective Vital Signs: Wt 44.2 kg (97 lb 7.1 oz) SpO2 96% BMI 18.41 kg/m? Orthostatic Vitals: Sitting: BP 136/79 Pulse 71 Standing: BP 116/76 Pulse 93 Weight: 44.2 kg (97 lb 7.1 oz) No LMP recorded. Patient is postmenopausal. Body mass index is 18.41 kg/m?. General Physical Examination: General: Awake, alert, interactive, no acute distress, good nutritional status, normal development, well-kept General Neurological Examination: Neurological Exam Mental Status Awake and alert. Language is fluent with no aphasia. Movement Disorders Scales Performed: MDS-UPDRS Motor subscale condition of exam Medication Off/On/Naiive ON Time of UPDRS 1137 Time of Last Medication 0800 Last Medication [...] Extremity 0-Normal. No rigidity. Finger Taps Right 3-Moderate. a) more than 5 interruptions during tapping or at least one longer arrest (freeze) in ongoing movement, b) moderate slowing, c) the amplitude decrements starting after the 1st tap. Finger Taps Left 1-Slight. a) the regular rhythm is broken with one or two interruptions or hesitations of the tapping movement, b) slight slowing, c) the amplitude decrements near the end of the 10 taps. Hand Movements Right 0-Normal. No problem. Hand Movements Left 0-Normal. No problem. Arm Movements Right 0-Normal. No problems. Arm Movements Left 0-Normal. No problems. Toe Taps Right 0-Normal. No problem. Toe Taps Left 0-Normal. No problem. Leg Agility Right 0-Normal. No problems. Leg Agility Left 0-Normal. No problems. Arise From Chair 0-Normal. No problems. Able to arise quickly without hesitation. Gait 3-Moderate. Requires an assistance device for safe walking (walking stick, walker) but not a person. Gait Freezing 0-Normal. No freezing. Posture Stability 0-Normal. No problems: recovers with one or two steps. (deferred) Posture 2-Mild. Definite flexion, scoliosis or [...] tremor. MDS-UPDRS Motor subscale totals Left Total 1 Right Total 3 Midline Total 8 Tremor Total / 10 0 PIGD Total / 3 3 Overall Total 12 % Change Compared to Last Filed Total -7.69 Assessment and Plan: Assessment Ms. Haynes is a left-handed 88 year old year old female with IPD since 2009. She reports mild wearing off. Will shorten up her dosing interval. Watch for overnight offs and morning akinesia. She is up to bathroom at night always with help. The following are the current problems noted and addressed during this visit: Parkinson's disease without dyskinesia or fluctuating manifestations (hcc) Plan 04/21/2024 Visit: For Parkinson's - we will change the dose timing as below. If you are not making it through the night you may need a 4th dose. Continue with exercise and therapy - exercise Updated Movement Disorders Medication Schedule: Medications 9 1p 6p Sinemet 25/100 2 2 2 midodrine Return at or around: 10/19/24 Level of service : 52801 ( 30-39 min). Time spent 34 min on the day of service, which included preparing to see the patient, [id number] patient care, completing clinical documentation, performing a medically appropriate examination, counseling and educating the patient/family/caregiver, and ordering medications, tests, or procedures. Thank you for allowing me to be part of the clinical care of this patient! I look forward to continued participation in the patient?s care with you. Please do not hesitate to call with any questions. Sincerely, Selvin Lowe MD CNOV Observed: 04/21/2024 11:00 AM Status: COMPLETED Source: [facility] Office Visit (NRMDN) NAMRATA HAYNESLEY Geovani ([id number]) 1935 F Date Time Provider Department 04/21/24 11:00 AM SELVIN LOWE NRANA During your visit today, we recorded the following information about you: Weight 44.2 kg Selvin Lowe MD 04/21/2024 7:56 PM Signed [facility] - FOLLOW UP EVALUATION Chris Zimmerman MD [address] [address] I had the pleasure of seeing Ms. Haynes for follow up today. She is a 88 year old left-handed female with a history of IPD since 2009. She is seen with a son. Subjective Previous Plan-10/18/2023 Visit: Please talk to your eye doctor about the double vision - Continue your medications as you have been taking them. We are not making any changes today. If you feel you are not tolerating them or your symptoms are changing before your next appointment, please feel free to send me a [employer] message or contact the office - It is important for her Parkinson's medications to be given as close to the ordered time as possible in order to manage Parkinson's disease most effectively for the reasons below: Dopamine Balance: Most drug treatments for Parkinson's work by topping up dopamine in the brain or acting as a substitute for dopamine. Dopamine is a neurotransmitter that plays a boyd role in movement control. Without enough dopamine, the symptoms of Parkinson's appear. When someone with Parkinson's doesn't receive their medication on time, their dopamine levels may drop, leading to poorly controlled symptoms Symptom Management: Properly timed Sinemet doses help manage symptoms such as tremors, rigidity, and bradykinesia (slowness of movement). When taken consistently, Sinemet helps maintain a stable dopamine level, allowing individuals to function better in their daily lives. Avoiding Fluctuations: Parkinson's medications can lead to fluctuations in symptom severity. Taking doses on time minimizes these fluctuations. Delaying doses can cause sudden worsening of symptoms, affecting mobility, balance, and overall well-being. Side Effects: If someone forgets a dose and takes it later, they might experience side effects like nausea or dizziness. Taking two doses together to compensate for a missed dose is not recommended. Continue PT, exercise - Interval History: Unsteady. Exercises. In therapy. OT for fingers. PT sees her too. Doses lasting 5 hours. Does notice wearing off. In bed by 9 but not necessarily asleep. Up at night with help. Parkinson's Medication Schedule - as of the start of the visit: Medications 9 2 9 Sinemet 25/100 2 2 2 midodrine Parkinson's Motor Complications Medication duration: 5 hours Wearing off: no (Comment: little bit. if late) Dyskinesia: yes Prior Anti-Parkinson Therapies Carbidopa/Levodopa Questionnaires In addition, the following areas that may be affected by abnormal involuntary movements were evaluated: Daily activities Difficulties with eating: help cutting meat, not new Difficulties in dressing: sometimes is helped. some trouble getting arm Difficulties with hygiene activities: assisted Difficulties with handwriting: Difficulties with doing hobbies and other activities: Difficulties turning in bed: Difficulties getting out of bed, car or chair: can usually do it. sometimes needs a boost from chair Tremors/Gait/Balance Shaking or tremors: Walking and balance problems: yes Number of falls in the Last Month: no Gait freezing: Autonomic/Pain Lightheadeness on standing: in the morning off balance vs low BP. sometimes lightheaded Urinary problems: average for age Constipation problems: sometimes. doesn't take anything Pain and other sensations: Speech/Swallowing Speech problems: Drooling: little bit Chewing and swallowing problems: no Sleep/Fatigue Sleep problems: nocturia 2- 3 times. generally sleeps well. Daytime sleepiness: Fatigue: In addition, the following non-motor symptoms and palliative concerns were evaluated: Sleep/Fatigue: REM sleep behavior disorder: Yes Occasionally. no safety concerns Restless Legs Syndrome: Yes some Leg swelling: Impaired sense of smell: Cognition: Cognitive impairment: no reasonable for age MoCA Cognitive assessment: Hallucinations and delusions: yes Occasionally. Animals. Insight retained. 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 Acetaminophen 500 mg cap Take by mouth. 1000 TID for pain autologous serum 20% ophth drops Use 1 Drop in both eyes three times a day. Refrigerate, Discard in 7 days, Keep unopened bottles in Freezer Dose not specified on facility med list midodrine (PROAMITINE) 5 mg tablet Take 5 mg by mouth three times a day. Hold for Bp greater than 130 carbidopa-levodopa (SINEMET) 25-100 mg per tablet 2 tablet 3 times a day at 8am, 1pm and 6pm. PLEASE NOTE DOSING TIME CHANGES No current facility-administered medications for this visit. Objective Vital Signs: Wt 44.2 kg (97 lb 7.1 oz) SpO2 96% BMI 18.41 kg/m? Orthostatic Vitals: Sitting: BP 136/79 Pulse 71 Standing: BP 116/76 Pulse 93 Weight: 44.2 kg (97 lb 7.1 oz) No LMP recorded. Patient is postmenopausal. Body mass index is 18.41 kg/m?. General Physical Examination: General: Awake, alert, interactive, no acute distress, good nutritional status, normal development, well-kept General Neurological Examination: Neurological Exam Mental Status Awake and alert. Language is fluent with no aphasia. Movement Disorders Scales Performed: MDS-UPDRS Motor subscale condition of exam Medication Off/On/Naiive ON Time of UPDRS 1137 Time of Last Medication 0800 Last Medication [...] Extremity 0-Normal. No rigidity. Finger Taps Right 3-Moderate. a) more than 5 interruptions during tapping or at least one longer arrest (freeze) in ongoing movement, b) moderate slowing, c) the amplitude decrements starting after the 1st tap. Finger Taps Left 1-Slight. a) the regular rhythm is broken with one or two interruptions or hesitations of the tapping movement, b) slight slowing, c) the amplitude decrements near the end of the 10 taps. Hand Movements Right 0-Normal. No problem. Hand Movements Left 0-Normal. No problem. Arm Movements Right 0-Normal. No problems. Arm Movements Left 0-Normal. No problems. Toe Taps Right 0-Normal. No problem. Toe Taps Left 0-Normal. No problem. Leg Agility Right 0-Normal. No problems. Leg Agility Left 0-Normal. No problems. Arise From Chair 0-Normal. No problems. Able to arise quickly without hesitation. Gait 3-Moderate. Requires an assistance device for safe walking (walking stick, walker) but not a person. Gait Freezing 0-Normal. No freezing. Posture Stability 0-Normal. No problems: recovers with one or two steps. (deferred) Posture 2-Mild. Definite flexion, scoliosis or [...] tremor. MDS-UPDRS Motor subscale totals Left Total 1 Right Total 3 Midline Total 8 Tremor Total / 10 0 PIGD Total / 3 3 Overall Total 12 % Change Compared to Last Filed Total -7.69 Assessment and Plan: Assessment Ms. Haynes is a left-handed 88 year old year old female with IPD since 2009. She reports mild wearing off. Will shorten up her dosing interval. Watch for overnight offs and morning akinesia. She is up to bathroom at night always with help. The following are the current problems noted and addressed during this visit: Parkinson's disease without dyskinesia or fluctuating manifestations (hcc) Plan 04/21/2024 Visit: For Parkinson's - we will change the dose timing as below. If you are not making it through the night you may need a 4th dose. Continue with exercise and therapy - exercise Updated Movement Disorders Medication Schedule: Medications 9 1p 6p Sinemet 25/100 2 2 2 midodrine Return at or around: 10/19/24 Level of service : 91271 ( 30-39 min). Time spent 34 min on the day of service, which included preparing to see the patient, [id number] patient care, completing clinical documentation, performing a medically appropriate examination, counseling and educating the patient/family/caregiver, and ordering medications, tests, or procedures. Thank you for allowing me to be part of the clinical care of this patient! I look forward to continued participation in the patient?s care with you. Please do not hesitate to call with any questions. Sincerely, MD Chrissy Quiros Kristin, MD 04/21/2024 11:43 AM Signed It was a pleasure to see you today. We addressed the following diagnoses: Parkinson's disease without dyskinesia or fluctuating manifestations (hcc) My recommendations are as follows: For Parkinson's - we will change the dose timing as below. If you are not making it through the night you may need a 4th dose. Continue with exercise and therapy Movement Disorders Medication Schedule: Medications 9 1p 6p Sinemet 25/100 2 2 2 midodrine No follow-ups on file. If there are any concerns before your next visit, please call or you can send a message through for; to (do). You can also now schedule and select appointments through for; to (do). Selvin Lowe MD Referring Provider: SELVIN LOWE [[id number]] Allergies As of Date: 04/21/2024 Noted Allergy Reaction PENICILLINS 05/15/2005 2 - Rash RISPERIDONE 04/18/2024 16 - Unknown TRAMADOL 01/10/2007 8 - GI Upset Date Reviewed: 04/21/2024 Reviewed by: Selvin Lowe MD - Fully Assessed Reason for Visit: Parkinson's Disease [582] Visit Diagnosis:Parkinson's disease 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) [G20.A1] Order(s):PROVIDER ORDERED FOLLOW UP [[id number]] Order #: [id number]: 1 carbidopa-levodopa (SINEMET) 25-100 mg per tablet2 tablet 3 times a day at 8am, 1pm and 6pm. PLEASE NOTE DOSING TIME CHANGESDisp: 540 tabletRfl: 3 PROVIDER ORDERED FOLLOW UP [[id number]] Order #: [id number]: 1 FUTURE Prescriptions as of 04/21/2024 - carbidopa-levodopa (SINEMET) 25-100 mg per tablet 2 tablet 3 times a day at 8am, 1pm and 6pm. PLEASE NOTE DOSING TIME CHANGES - lactose-reduced food (BOOST HIGH PROTEIN ORAL) Take by mouth. - Acetaminophen 500 mg cap Take by mouth. 1000 TID for pain - autologous serum 20% ophth drops Use 1 Drop in both eyes three times a day. Refrigerate, Discard in 7 days, Keep unopened bottles in Freezer Dose not specified on facility med list - midodrine (PROAMITINE) 5 mg tablet Take 5 mg by mouth three times a day. 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 We addressed the following diagnoses: Parkinson's disease without dyskinesia or fluctuating manifestations (hcc) My recommendations are as follows: For Parkinson's - we will change the dose timing as below. If you are not making it through the night you may need a 4th dose. Continue with exercise and therapy Movement Disorders Medication Schedule: Medications 9 1p 6p Sinemet 25/100 2 2 2 midodrine No follow-ups on file. If there are any concerns before your next visit, please call or you can send a message through for; to (do). You can also now schedule and select appointments through for; to (do). Selvin Lowe MD Prescriptions ordered this encounter Disp Refills Start End CARBIDOPA 25 MG-LEVODOPA 100 MG TABL* 540 * 3 04/21/2024 Class: Print RX Si tablet 3 times a day at 8am, 1pm and 6pm. PLEASE NOTE DOSING TIME CHANGES Medications Discontinued During This Encounter Prescriptions - famotidine (PEPCID) 40 mg tablet (Discontinued) Reported on 04/18/2024 - senna-docusate (SENNA PLUS) 8.6-50 mg per tablet (Discontinued) Reported on 04/18/2024 - psyllium husk (METAMUCIL ORAL) (Discontinued) Reported on 10/18/2023 - cyanocobalamin (VITAMIN B-12) 1,000 mcg tab (Discontinued) Reported on 10/18/2023 - metoprolol tartrate, short acting, (LOPRESSOR) 12.5 mg tab (Discontinued) Reported on 04/18/2024 - atorvastatin (LIPITOR) 40 mg tablet (Discontinued) Reported on 04/18/2024 - Ascorbic Acid 1,000 mg tablet (Discontinued) Reported on 04/18/2024 - aspirin, enteric coated (ASPIRIN, ENTERIC COATED) 81 mg EC tablet (Discontinued) Reported on 04/18/2024 - MULTIVITAMIN ORAL (Discontinued) Reported on 04/18/2024 - carbidopa-levodopa (SINEMET) 25-100 mg per tablet (Discontinued) 2 tablet 3 times a day at 8am, 1pm and 6pm Level of Service: OFFICE/OUTPATIENT ESTABLISHED MOD [facility] 30 MIN [73024] Additional E/M codes: VISIT CPLX INHERENT EANDM ASSOC WITH MED * Encounter Status:Closed by SELVIN LOWE on 04/21/24 CNPN Observed: 04/21/2024 12:00 AM Status: COMPLETED Source: [facility] Telephone (NRMDN) ADDIS HAYNES ([id number]) 1935 F Date Time Provider Department 04/21/24 SELVIN LOWE [facility] During your visit today, we recorded the following information about you: Maria Eugenia Moe MA 04/21/2024 11:02 AM Signed Checked james patient not present at time of visit Allergies As of Date: 04/21/2024 Noted Allergy Reaction PENICILLINS 05/15/2005 2 - Rash RISPERIDONE 04/18/2024 16 - Unknown TRAMADOL 01/10/2007 8 - GI Upset Date Reviewed: 04/18/2024 Reviewed by: Maria Eugenia Moe MA - Fully Assessed Reason for Visit: Appointment [186] Prescriptions as of 04/21/2024 - lactose-reduced food (BOOST HIGH PROTEIN ORAL) Take by mouth. - Acetaminophen 500 mg cap Take by mouth. 1000 TID for pain - autologous serum 20% ophth drops Use 1 Drop in both eyes three times a day. Refrigerate, Discard in 7 days, Keep unopened bottles in Freezer Dose not specified on facility med list - senna-docusate (SENNA PLUS) 8.6-50 mg per tablet Take 1 tablet by mouth once daily. PRN - aspirin, enteric coated (ASPIRIN, ENTERIC COATED) 81 mg EC tablet Take 81 mg by mouth once daily. - cyanocobalamin (VITAMIN B-12) 1,000 mcg tab Take 1,000 mcg by mouth once daily. - famotidine (PEPCID) 40 mg tablet Take 1 tablet by mouth once daily. - carbidopa-levodopa (SINEMET) 25-100 mg per tablet 2 tablet 3 times a day at 8am, 1pm and 6pm - atorvastatin (LIPITOR) 40 mg tablet Take 40 mg by mouth once daily. - midodrine (PROAMITINE) 5 mg tablet Take 5 mg by mouth three times a day. Hold for Bp greater than 130 - psyllium husk (METAMUCIL ORAL) Take 1 teaspoonful by mouth once daily as needed. - metoprolol tartrate, short acting, (LOPRESSOR) 12.5 mg tab Take 25 mg by mouth two times a day. - MULTIVITAMIN ORAL Take by mouth once daily. - Ascorbic Acid 1,000 mg tablet Take 500 mg by mouth once daily. 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] 12/31/2017 Encounter Status:Closed by MARIA EUGENIA MOE on 04/21/24 ALLERGIES DATE TYPE / CODE NAME / CODE REACTION SEVERITY SOURCE 04/18/2024 DRUG INGREDI/[id number](SN OMED CT) RISPERIDONE UNKNOWN [facility] 01/10/2007 DRUG INGREDI/[id number](SN OMED CT) TRAMADOL GI UPSET [facility] 05/15/2005 Drug Class/[id number](SN ED CT) PENICILLINS RASH [facility] ENCOUNTERS ADMIT/DISCHARGE ACCOUNT NUMBER ADMITTING ENCOUNTER CLASS LOC ATION SOURCE 10/20/2024/ 5 [id number] Ambulatory [facility] 04/21/2024/ 4 [id number] Ambulatory [facility] PAYERS ENCOUNTER GUARANTOR PAYER SUBSCRIBER SOURCE 10/20/2024 Primary Insurance:[employer] MEDICARE PPOPolicy Number: [id number] Date:[id number] Name:Claude ALVARADO: [id number] [place] [address] [facility] 04/21/2024 Primary Insurance:[employer]ET[employer] MEDICARE PPOPolicy Number: [id number] Date:[id number] Name:Claude ALVARADO: [id number] [id number] [place] [address]
--- OUTSIDE RECORDS SUMMARY | 2024-10-20 10:46 | XMS RPT_ITS ---
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 Author Type: Physician Type: Progress Notes Filed: 10/20/2024 11:40 Note Text: [facility] - FOLLOW UP EVALUATION Primary Movement Disorders Neurologist: Selvin Lowe MD Primary Movement Disorders TONE: Not yet assigned Recording using Mandiant software for draft documentation of the visit was discussed with the patient/authorized escrow representative; all questions welcomed and answered. Patient/authorized escrow representative agreed to proceed Chris Zimmerman MD [address] [facility] [address] [facility] [address] Dear Chris Zimmerman MD: I had the [...] endorse any fluid restrictions advised by a isotope technologist. She reports persistent fatigue, stating, I just [...] or around: 04/22/25 Level of service : 12025 ( 30-39 min). Time spent 34 min on the day of service, which included preparing to see the patient, bozo-py-rjxf patient care, completing clinical documentation, performing a medically appropriate examination, and counseling and educating the patient/family/caregiver. Thank you for allowing me to be part of the clinical care of this patient! I look forward to continued participation in the patient?s care with you. Please do not hesitate to call with any questions. Sincerely, MD ANAHI QuirosOV Observed: 10/20/2024 11:00 AM Status: COMPLETED Source: [facility] Office Visit (NRMDN) ADDIS HAYNES ([id number]) 1935 F Date Time Provider Department 10/20/24 [...] or you can send a message through [employer]. You can also now schedule and select appointments through [employer]. MD Chrissy Quiros Kristin, MD 10/20/2024 11:40 AM Signed [facility] - FOLLOW UP EVALUATION Primary Movement Disorders Neurologist: Selvin Lowe MD Primary Movement Disorders TONE: Not yet assigned Recording using Mandiant software for draft documentation of the visit was discussed with the patient/authorized escrow representative; all questions welcomed and answered. Patient/authorized escrow representative agreed to proceed Chris Zimmerman MD [address] [address] Dear Chris Zimmerman MD: I had the [...] endorse any fluid restrictions advised by a isotope technologist. She reports persistent fatigue, stating, I just [...] or around: 04/22/25 Level of service : 85775 ( 30-39 min). Time spent 34 min on the day of service, which included preparing to see the patient, [id number]-[id number] patient care, completing clinical documentation, performing a medically appropriate examination, and counseling and educating the patient/family/caregiver. Thank you for allowing me to be part of the clinical care of this patient! I look forward to continued participation in the patient?s care with you. Please do not hesitate to call with any questions. Sincerely, Selvin Lowe MD Referring Provider: SELVIN LOWE [[id number]] Allergies As of Date: 10/20/2024 Noted Allergy Reaction PENICILLINS 05/15/2005 2 - Rash RISPERIDONE 04/18/2024 16 - Unknown TRAMADOL 01/10/2007 8 - GI Upset Date Reviewed: 10/20/2024 Reviewed by: Selvin Lowe MD - Fully Assessed Reason for Visit: Parkinson's Disease [582] Primary Visit Diagnosis:Parkinson's disease 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) [G20.A1] Other Visit Diagnosis:Neurogenic orthostatic hypotension (HCC) [G90.3] Order(s):PROVIDER ORDERED FOLLOW UP [[id number]] Order #: [id number]: 1 PROVIDER ORDERED FOLLOW UP [[id number]] Order #: [id number]: 1 FUTURE Prescriptions as of 10/20/2024 - [...] or you can send a message through [employer]. You can also now schedule and select appointments through [employer]. Selvin Lowe MD Level of Service: OFFICE/OUTPATIENT ESTABLISHED MOD MDM 30 MIN [33480] Additional E/M codes: VISIT CPLX INHERENT EANDM ASSOC WITH MED * Encounter Status:Closed by SELVIN LOWE on 10/20/24 PROGRESS Observed: 04/21/2024 11:22 AM Status: COMPLETED Source: [facility] ID: [id number] Author: SELVIN LOWE MD Service: ? Author Type: Physician Type: Progress Notes Filed: 04/21/2024 19:56 Note Text: [facility] - FOLLOW UP EVALUATION Chris Zimmerman MD [address] [facility] [address] [facility] [address] I had the pleasure of seeing Ms. 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 Time spent 34 min on the day of service, which included preparing to see the patient, qxja-eh-jatn patient care, completing clinical documentation, performing a [...] Observed: 04/21/2024 11:00 AM Status: COMPLETED Source: [facility] Office Visit (NRMDN) NAMRATA HAYNESLEY Geovani ([id number]) 1935 F Date Time Provider Department 04/21/24 11:00 AM SELVIN LOWE [facility] During your visit today, we recorded the following information about you: Weight 44.2 kg Selvin Lowe MD 04/21/2024 7:56 PM Signed [facility] - FOLLOW UP EVALUATION Chris Zimmerman MD [address] [address] I had the pleasure of seeing Ms. 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 Time spent 34 min on the day of service, which included preparing to see the patient, akko-mh-ehlh patient care, completing clinical documentation, performing a [...] or you can send a message through [employer]. You can also now schedule and select appointments through [employer]. Selvin Lowe MD Referring Provider: SELVIN LOWE [[id number]] Allergies As of Date: 04/21/2024 Noted Allergy Reaction PENICILLINS 05/15/2005 2 - Rash RISPERIDONE 04/18/2024 16 - Unknown TRAMADOL 01/10/2007 8 - GI Upset Date Reviewed: 04/21/2024 Reviewed by: Selvin Lowe MD - Fully Assessed Reason for Visit: Parkinson's Disease [582] Visit Diagnosis:Parkinson's disease 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) [G20.A1] Order(s):PROVIDER ORDERED FOLLOW UP [[id number]] Order #: [id number]: 1 carbidopa-levodopa (SINEMET) 25-100 mg per tablet2 tablet 3 times a day at 8am, 1pm and 6pm. PLEASE NOTE DOSING TIME CHANGESDisp: 540 tabletRfl: 3 PROVIDER ORDERED FOLLOW UP [[id number]] Order #: [id number]: 1 FUTURE Prescriptions as of 04/21/2024 - [...] or you can send a message through [employer]. You can also now schedule and select appointments through [employer]. Selvin Lowe MD Prescriptions ordered this encounter [...] 6pm Level of Service: OFFICE/OUTPATIENT ESTABLISHED MOD [facility] 30 MIN [96363] Additional E/M codes: VISIT CPLX INHERENT EANDM ASSOC WITH MED * Encounter Status:Closed by SELVIN LOWE on 04/21/24 CNPN Observed: 04/21/2024 12:00 AM Status: COMPLETED Source: [facility] Telephone (NRMDN) ADDIS HAYNES ([id number]) 1935 F Date Time Provider Department 04/21/24 SELVIN LOWE [facility] During your visit today, we recorded the [...] / CODE REACTION SEVERITY SOURCE 04/18/2024 DRUG INGREDI/[id number](SN OMED CT) RISPERIDONE UNKNOWN [facility] 01/10/2007 DRUG INGREDI/[id number](SN OMED CT) TRAMADOL GI UPSET [facility] 05/15/2005 Drug Class/[id number](SN ED CT) PENICILLINS RASH [facility] ENCOUNTERS ADMIT/DISCHARGE ACCOUNT NUMBER ADMITTING ENCOUNTER CLASS LOC ATION SOURCE 10/20/2024/ 5 [id number] [facility] 04/21/2024/ 4 [id number] [facility] PAYERS ENCOUNTER GUARANTOR PAYER SUBSCRIBER SOURCE 10/20/2024 Primary Insurance:[employer] MEDICARE PPOPolicy Number: [id number] Date:[id number] Name:Claude ALVARADO: [id number] [place] [address] [facility] 04/21/2024 Primary Insurance:[employer] MEDICARE PPOPolicy Number: [id number] Date:7723-90-41Lpsn Name:Claude ALVARADO: [id number] [id number] [place] [address]
[2025-03-17 08:05] LABS: Mucous, Urine 0 SEEN /hpf (<or=2+); Red Blood Cells-Urine 0 SEEN /hpf (0-5)
[2025-03-17 08:37] LABS: Color, Urine Yellow (Yellow); Glucose, Dipstick Normal (Normal); Ketone-Dipstick Negative (Negative); Leukocyte Esterase-Dipstick Negative /ul (Negative); Nitrite-Dipstick Negative (Negative); Occult Blood-Urine Negative /ul (Negative); Protein-Dipstick 15 mg/dl (Negative); Specific Gravity, Urine 1.010 (1.002-1.030); Urine Bilirubin Dipstick Negative (Negative)
[2025-03-17 08:46] LABS: Squamous Epithelial Cells - UA 0-5 SEEN /hpf (5-10)
== END ==
LOC: OLS.WHLTSB 07:00
PROVIDERS: PCP Family Medicine Geriatric Medicine; Referring Provider Internal Medicine; Visit Provider Internal Medicine
DX: N39.0 Urinary tract infection, site not specified (principal)
CPT/HCPCS: 81001; 87086; 87088

== ENCOUNTER → 2025-03-26 | Outpatient (REF) | payer MEDICARE, SELFPAY ==
[2025-03-26 09:27] LABS: Hematocrit 38.9 % (37-47); Hemoglobin 12.5 g/dL (12.0-15.0); Immature Granulocytes Count 0.040 X10^3/uL (0.0-0.0); Mean Corp Hgb Conc 32.1 g/dL (32-36); Mean Corpuscular Volume 97.0 fL (81-99); Mean Platelet Vol. 10.2 fl (6.2-12.0); NRBC Flagged by Analyzer 0 % (0-5); POSITIVE DIFFERENTIAL YES; POSITIVE MORPHOLOGY YES; Platelet Count 377 K/mm3 (150-450); RBC Distribution Width CV 13.2 % (11.6-14.6); RBC Distribution Width SD 47.1 fl (35.1-43.9); Red Blood Count 4.01 M/mm3 (4.2-5.4); White Blood Count 17.3 K/mm3 (4.4-11.0)
[2025-03-26 09:58] LABS: Differential Indicated SCAN CRITERIA MET
[2025-03-26 10:24] LABS: Differential Comment SCANNED
[2025-03-26 11:49] LABS: Anion Gap 12 (5-15); BUN 30 mg/dL (4-19); BUN/Creat Ratio 27.8 RATIO (10-20); Calcium,Total 9.4 mg/dL (7.6-11.0); Carbon Dioxide 23.4 mmol/L (21.0-32.0); Chloride 103 mmol/L (98-108); Glucose 83 mg/dL (70-99); Potassium 4.4 mmol/L (3.3-5.1)
== END ==
LOC: OLS.WHLTSB 05:45
PROVIDERS: PCP Family Medicine Geriatric Medicine; Visit Provider Internal Medicine
DX: N18.30 Chronic kidney disease, stage 3 unspecified (principal); G20.C Parkinsonism, unspecified
CPT/HCPCS: 36415; 80048; 85025

== ENCOUNTER → 2025-04-30 04:00 | Outpatient (REF) | payer MEDICARE, SELFPAY ==
--- OUTSIDE RECORDS SUMMARY | 2025-04-30 04:16 | XMS RPT_ITS | CCD ---
Author Organization [facility] Care Team Providers Care Service Loss Control Consultant Name Role Phone FARHAD Reagan, Amy Mao Unavailable Jayden Reagan RN, Amy Mao Unavailable Shannan Dhillon Primary Care Provider [phone] Erasmo MASON, Shannan Primary Care Provider Howard Zimmerman Chi Primary Care Provider ERASMO MASON, DR JONES Primary Care Physician Sadaf Love PT Unavailable Unavailable Dr. Howard Zimmerman Chi Primary Care Provider Erasmo, Dr. Howard Morris Referring Provider Dr. Bart Olivarez Attending Provider Howard Zimmerman Chi Primary Care Provider Howard Zimmerman Chi Primary Care Provider [phone] Dr. Howard Zimmerman Chi Primary Care Provider Erasmo, Dr. Howard Morris Referring Provider NANNETTE Chung Attending Provider Dr. Howard Zimmerman Chi Primary Care Provider Dr. Howard Zimmerman Chi Referring Provider NANNETTE Chung Attending Provider Howard Zimmerman Chi Primary Care Provider Rogelio DEGREASER OPERATOR, DEGREASER OPERATORMelva Duong Other Provider NANNETTE Edwards Attending Provider Dr. Howard Zimmerman Chi Primary Care Provider Rogelio DEGREASER OPERATOR, DEGREASER OPERATOR-C Rhoda Other Provider [phone] Yadira BRUNSON, NANNETTE Gibson Attending Provider [phone] [...] Other Provider Dr. Timothy Fortune Other Provider [phone] Dr. Cherie Mark Other Provider Dr. Jose Benson Other Provider Dr. Isiah Kelly Other Provider MD Eri Interiano Other Provider Dr. Vincent Suresh Other Provider Dr. Alayna Valverde Other Provider Dr. Ruy Sun Other Provider [phone] Dr. Elian Stroud Other Provider Dr. [...] MD Roopa Tolbert Other Provider Unavailable Dr. Aevl Massey Attending Provider Dr. Avel Massey Other [...] Howard Zimmerman Chi Primary Care Provider [phone] Howard Zimmerman Chi Primary Care Provider [...] Provider Unavailable Dr. Paige Martinez Other Provider [phone] Timothy Fortune Other Provider Dr. Cherie Mark Other Provider Dr. Jose Benson Other Provider Dr. Isiah Kelly Other Provider Dr. Vincent Suresh Other Provider Dr. Ruy Sun Other Provider Dr. Elian Stroud Other Provider Dr. John Quesada Other Provider Dr. Pamela Kamara Other Provider Dr. Jonathon Rodríguez Other Provider [phone] Mallika Pinon Other Provider Unavailable MD Roopa Tolbert Other Provider Unavailable Dr. Howard Zimmerman MD, Chi Primary Care Provider Odalis Saravia MD Attending Provider Unavaila ble Ticknir DEGREASER OPERATOR-CPam Attending Provider Dr. Odalis Saravia MD Attending Provider Odalis Saravia MD Referring Provider UnavailDr. Howard Nielson MD, Chi Primary Care Provider Odalis Saravia MD Attending Provider Unavaila ble Tickton DEGREASER OPERATOR-CPam Attending Provider SELVIN FELDER Attending Unavailable SELVIN FELDER Referring Unavailable ERASMO, HOWARD CHI Primary Care Unavailable SELVIN FELDER Attending Unavailable SELVIN FELDER Referring Unavailable ERASMO, HOWARD CHI Primary Care Unavailable Dr. Howard Zimmerman MD, Chi Primary Care Provider Odalis Saravia MD Attending Provider UnavailDr. Odalis Stuart MD Attending Provider Dr. Howard Zimmerman MD Chi Primary Care Provider [phone] Odalis Saravia MD Attending Provider Unavaila ble Tickton DEGREASER OPERATOR-C, Pam Attending Provider Erasmo MASON, Dr. Howard Morris Primary Care Provider [phone] Odalis Saravia MD Attending Provider Unavailjolene Saravia MD, Odalis Referring Provider Unavaila ashly Saravia MD, Dr. Jacobo Attending Provider Erasmo MASON, Dr. Howard Morris Primary Care Provider Odalis Saravia MD Attending Provider Unavailjolene Zimmerman MD, Dr. Howard Morris Primary Care Provider Tickton DEGREASER OPERATOR-C, Pam Attending Provider Manjit MASON, Odalis Attending Provider Unavailjolene Zimmerman MD, Dr. Howard Morris Primary Care Provider Odalis Saravia MD Attending Provider Unavaila ble Tickton DEGREASER OPERATOR-C, Pam Attending Provider Manjit MASON, Dr. Jacobo Referring Provider Erasmo MASON, Dr. Howard Morris Primary Care Physician Ticknir DEGREASER OPERATOR-C, Pam Attending Physician Manjit MASON, Dr. Jacobo Attending Physician Odalis Saravia MD Attending Physician Unavail able OlegheCandiceongbe Attending Unavailable Erasmo, Howard Chi Primary Care Unavailable Oleghe RUSLAN, Efbonnieongbe Attending Unavailabl e Erasmo, Howard [facility] Primary Care Unavailable Tickton DEGREASER OPERATORPam Attending Unavailable Erasmo, Howard Chi Primary Care Unavailable Oleghe OLS, Efewongbe Referring Unavailabl e Oleghe Martha MERCERbe Attending Unavailabl e Erasmo, Howard Chi Primary Care Unavailable Erasmo, Howard Chi Primary Care Unavailable Oleghe, Efewongbe Attending Unavailable Oleghe, Efewongbe Referring Unavailable Oleghe RUSLAN, Marthabe Attending Unavailabl e Erasmo, Howard Chi Primary Care Unavailable Oleghe RUSLAN Efewongbe Attending Unavailabl e Erasmo, Howard Chi [...] Efewongbe Attending Unavailabl e Oleghe OLS, Efewongbe Referring Unavailabl e Erasmo, [...] e Erasmo, Howard Chi Primary Care Unavailable Erasmo, Howard Chi Primary Care Unavailable Tickton DEGREASER OPERATOR, Pam Attending Unavailable Erasmo, Howard Chi Primary Care Unavailable Oleghe, Efewongbe Attending Unavailable Erasmo, Howard Chi Primary Care Unavailable Tickton DEGREASER OPERATOR, Pam Attending Unavailable Erasmo, Howard Chi Primary Care Unavailable Tickton DEGREASER OPERATOR, Pam Attending Unavailable Oleghe OLS, Efewongbe Attending Unavailabl e Erasmo, Howard Chi Primary Care Unavailable Tickton DEGREASER OPERATOR, Pam Attending Unavailable Erasmo, Howard Chi Primary Care Unavailable Oleghe OLS, Efewongbe Attending Unavailabl e Erasmo, Howard Chi Primary Care Unavailable Erasmo, Howard Chi Primary Care Unavailable Oleghe, Efewongbe Attending Unavailable Erasmo, Howard Chi Primary Care Unavailable Tickton DEGREASER OPERATOR, Pam Attending Unavailable Erasmo, Howard Chi Primary Care Unavailable Oleghe, Efewongbe Attending Unavailable Tickton DEGREASER OPERATOR, Pam Attending Unavailable Erasmo, Howard Chi Primary Care Unavailable Erasmo, Howard Chi Primary Care Unavailable Oleghe, Efewongbe Attending Unavailable Tickton DEGREASER OPERATOR, Pam Attending Unavailable Erasmo, Howard Chi Primary Care Unavailable Erasmo, Howard Chi Primary Care Unavailable Tickton DEGREASER OPERATOR, Pam Attending Unavailable Erasmo, Howard Chi Primary Care Unavailable Tickton DEGREASER OPERATOR, Pam Attending Unavailable Erasmo, Howard Chi Primary Care Unavailable Tickton DEGREASER OPERATOR, Pam Attending Unavailable Erasmo, Howard Chi Primary Care Unavailable Ramone DEGREASER OPERATOR, Pam Attending Unavailable Erasmo, Howard Chi Primary Care Unavailable Odalis Saravia Attending Unavailable Erasmo, Howard Chi Primary Care Unavailable Joel Mccarthy Attending Unavailable OleOdalis Haddad Attending Unavailabl e Oleermiase Candice MERCERongbe Referring Unavailabl e Erasmo, Howard Chi Primary Care Unavailable Allergies Allergy Classification Reported Allergen(s) Allergy Type Date of Onset Reaction(s) Facility (2 sources) mold extract; Translations: [MOLD] Drug Allergy 1 [facility] Work Phone: [phone] (2 sources) potassium Drug Allergy 1 Rash [facility] Work Phone: [phone] (20 sources) traMADol; Translations: [TRAMADOL] Drug Allergy 7 Nausea Only, GI Upset [facility] Work Phone: [phone] Comment on above: upset stomach (2 sources) RAGWEED drug allergy 1 [facility] Work Phone: [phone] (6 sources) Penicillins; Translations: [PENICILLINS] Propensity to adverse reactions to drug 5 [place], [place] (2 sources) Penicillins Drug Allergy 5 [facility] Work Phone: [phone] (19 sources) environmental [Other] Propensity to adverse reactions 5 [facility] Work Phone: [phone] (20 sources) Penicillins Drug Allergy 5 [facility] Work Phone: (20 sources) Penicillins Allergy to substance 2 [facility] (1 source) OTHER; Translations: [OTHER] Propensity to adverse reactions (disorder) 5 [facility] Other [place] [facility] (18 sources) risperiDONE; Translations: [RISPERIDONE] Drug Allergy 4 Unknown [facility] Comment on above: Also becomes severel y confused and has slurred speech and hallucinations. (1 source) Penicillins Drug Allergy 5 [facility] Work Phone: (1 source) Penicillins Drug allergy (disorder) 4 [facility] (1 source) risperiDONE Drug Allergy 4 [facility] Medications Current Medications Medication Drug Class(es) Dates Sig (Normalized) Sig (Original) acetaminophen 500 mg oral tablet (20 sources) Start: 12-25-2023 take 2 tablets by mouth every eight hours Start: 11-20-2023 End: 12-25-2023 take 2 tablets [...] TABLET PO EVERY 6 HOURS NEEDED 10 3 April 14, 2022 Start: 03-04-2016 End: 01-07-2018 Hydrocodone-Acetaminophen 1 TABLET tablet Discontinued 1 - 2 {tbl} PO EVERY 4 HOURS NEEDED as needed for Pain 30 0 March 04, 2016 12:00am January 07, 2018 12:59pm Start: 03-04-2016 End: 01-07-2018 take 1 tablet by mouth every four hours as needed Hydrocodone-Acetaminophen Discontinued 1 - 2 TABLET PO EVERY 4 HOURS NEEDED March 04, 2016 12:00am January 07, 2018 12:59pm Start: 03-04-2016 End: 01-07-2018 Start: 11-08-2011 LORTAB 5-500 M G TABS As needed HYDROCODONE-ACETAMINOPHEN [id number] Aleta Castellanos RN Start: 11-08-2011 End: 11-09-2011 LORTAB 5-500 MG TABS As need ed HYDROCODONE-ACETAMINOPHEN [id number] Bart Olivarez MD ALPRAZolam 0.25 mg disintegrating oral tablet (1 source) Benzodiazepine Start: 05-27-2019 ALPRAZolam (NIRAVAM) dissolvable tablet 0.25 mg aspirin 81 mg chewable tablet (20 sources) Nonsteroidal Anti-inflammatory Drug Start: 06-29-2023 take 1 tablet by mouth twice daily Start: 09-02-2010 End: 04-21-2024 Aspirin (Adult Low Dose Aspi rin) 81 mg tablet,delayed release (DR/EC) Discontinued 81 mg PO daily December 31, 2017 12:00am January 07, 2018 12:58pm Start: 09-02-2010 take 1 tablet by nasrin once daily ASPIRIN 81 MG TABS One tablet by mouth daily ASPIRIN [id number] Nurys Nettles Comment on above: Take 81 [...] Plus High Protein) 0.08 gram-1.5 kcal/mL Liquid (14 sources) Start: 12-25-19 Start: 12-25-2023 Food Supplemt, Lactose-Reduced (Ensure Plus High Protein) 0.08 gram-1.5 kcal/mL Liquid Active 120 mL PO TWICE A DAY 0 0 December 25, 2023 12:00am Start: 12-25-2023 Food Supplemt, Lactose-Reduced (Ensure Plus High Protein) 0.08 gram-1.5 kcal/mL Liquid Active 120 mL PO TWICE A DAY 0 December 25, 2023 12:00am 1 ml hydrALAZINE hydrochloride 20 mg/ml injection (1 source) Arteriolar Vasodilator Start: 05-27-2019 hydrALAZINE (APRESOLINE) injection 5 mg 1 ml HYDROmorphone hydrochloride 1 mg/ml cartridge (3 sources) Opioid Agonist Start: 05-27-2019 HYDROmorphone (DILAUDID) injection 0.5 mg Start: 05-27-2019 HYDROmorphone (DILAUDID) injection 0.25 mg 4 ml labetalol hydrochloride 5 mg/ml cartridge (1 source) beta-Adrenergic Dornee Start: 05-27-2019 labetalol (NORMODYNE;TRANDATE) injection 5 mg [...] by mouth three times daily at mealtime Start: 06-28-2023 End: 09-14-2023 take 10 mg by mouth three times daily at mealtime Midodrine Active 10 MG PO 3 TIMES DAILY WITH MEALS 0 September 14, 2023 12:00am Start: 05-21-2023 End: 09-14-2023 take 1 tablet by mouth three times daily Midodrine 5 mg tablet Discontinued 5 mg PO THREE TIMES A DAY June 28, 2023 1:00am September 14, 2023 11:51am blood pressure Comment on above: Take 5 mg by [...] DAILY November 20, 2018 12:00am Multivitamin tablet (14 sources) Start: 11-20-2018 Start: 11-20-2018 Multivitamin t ablet Active 1 {tbl} PO DAILY November 20, 2018 12:00am SUPPLEMENT Start: 11-20-2018 Multivitamin t ablet Active 1 [...] promethazine (PHENERGAN) injection 6.25 mg VITAL TEARS (18 sources) Start: 09-08-2023 Start: 09-08-2023 VITAL TEARS Ac tive 1 NMA OPHTHALMIC THREE TIMES A DAY September 08, 2023 12:00am DRY EYES Start: 09-08-2023 VITAL TEARS Ac tive 1 [...] Drug Class(es) Dates Sig (Normalized) Sig (Original) [id number] actuat albuterol 0.09 mg/actuat metered dose [...] 02, 2023 12:00am November 20, 2023 8:26pm SUPPLEMENT Start: 10-03-2023 End: 11-02-2023 take 2 tablets by mouth once daily Ascorbic Acid (Vitamin C) 500 mg Tablet Discontinued 1000 mg PO DAILY 0 0 October 03, 2023 12:00am November 02, [...] 08, 2023 12:00am October 03, 2023 7:40am supplement Start: 12-31-2017 End: 06-28-2023 take 2 capsules by mouth once daily Ascorbic Acid (Vitamin C) 500 mg capsule Discontinued 1000 mg PO daily 0 December 31, 2017 12:00am June 28, 2023 1:38pm vitamin Start: 12-31-2017 End: 06-28-2023 take 1000 mg [...] Tablet Discontinued 40 mg PO AT BEDTIME 30 30 2 June 29, 2023 1:00am November 20, 2023 8:26pm CHOLESTEROL Start: 06-17-2019 End: 07-02-2019 take 1 tablet by mouth at bedtime Atorvastatin 20 MG tablet Discontinued 20 mg PO AT BEDTIME June 17, 2019 1:00am July 02, 2019 1:58pm Start: 12-31-2017 End: 05-21-2019 take 1 tablet by mouth once daily Atorvastatin 20 mg tablet Discontinued 20 mg PO daily 90 3 May 12, 2019 11:38am May 21, 2019 1:48pm Start: 04-16-2015 take 1 tablet by nasrin th once daily ATORVASTATIN CALCIUM 20 MG TABS One tablet by mouth daily ATORVASTATIN CALCIUM [id number] Michelle Hooper NP Comment on above: Take 40 mg by mouth once daily. B COMPLEX-C (4 sources) Start: 10-11-2012 take 1 tablet by mouth once daily VITAMIN B COMPLEX-C CAPS One tablet by mouth daily B COMPLEX-C [id number] Bart Olivarez MD Start: 10-11-2012 End: 04-08-2013 take 1 tablet by mouth once daily VITAMIN B COMPLEX-C CAPS One tablet by mouth daily B COMPLEX-C [id number] Julissa Da Silva PA-C calcium carbonate / vitamin D (4 sources) Start: 09-02-2010 End: 04-08-2013 take 1 tablet by mouth once daily CALCIUM CARBONATE-VITAMIN D 600-125 MG-UNIT TABS One tablet by mouth daily CALCIUM CARBONATE-VITAMIN D [id number] Julissa Da Silva PA-C Start: 09-02-2010 take 1 tablet by nasrin th once daily CALCIUM CARBONATE-VITAMIN D 600-125 MG-UNIT TABS One tablet by mouth daily CALCIUM CARBONATE-VITAMIN D [id number] Nurys Nettles carbidopa 25 mg / levodopa [...] tablet by mouth three times daily CARBIDOPA-LEVODOPA [id number] Julissa Da Silva PA-C Comment on above: 1.5 tablet 3 times a day Take 1 tablet by nasrin three times daily. 12 tablet 3 times a day 2 tablet 3 times a d ay at 8am, 1pm and 6pm carvedilol 3.125 mg oral tablet (20 sources) alpha-Adrenergic Dorene, beta-Adrenergic Dorene Start: 01-17-20 End: 05-21-20 19 take 1 tablet by mouth twice daily Carvedilol 3.125 mg tablet Discontinued 3.125 mg PO TWICE A DAY 180 4 April 07, 2019 2:51pm May 21, 2019 [...] One tablet by mouth daily GLUCOSAMINE-CHONDROITIN CAPS [id number] Julissa Da Silva PA-C Start: 09-02-2010 take 1 tablet by [facility] once daily GLUCOSAMINE-CHONDROITIN CAPS One tablet by mouth daily GLUCOSAMINE-CHONDROITIN CAPS [id number] Nurys Nettles CINNAMON CAPS (4 sources) Non-Standardized Food Allergenic Extract Start: 11-23-2014 End: 06-25-2015 take 2 tablets by mouth once daily CINNAMON CAPS Two tablets by mouth daily CINNAMON CAPS [id number] Julissa Da Silva PA-C Start: 11-23-2014 take 2 tablets by mo [facility] once daily CINNAMON CAPS Two tablets by mouth daily CINNAMON CAPS [id number] Bart Olivarez MD 50 ml clindamycin 12 [...] One tablet by mouth daily COENZYME Q10 [id number] Bart Olivarez MD dexamethasone sod phos-bupiv (TAP) [...] release 24hr Discontinued 120 mg PO daily 90 June 21, 2017 1:00am January 16, 2018 3:28pm Start: 05-01-2013 take 1 tablet by nasrin th once daily CARDIZEM CD 120 MG [id number] One tablet by mouth daily DILTIAZEM HCL COATED BEADS [id number] Bart Olivarez MD docusate sodium 50 mg / sennosides, care home 8.6 mg oral capsule (17 sources) Start: 11-02-2023 End: 11-20-2023 Sennosides-Docusate Sodium [...] MG /GM CREA Take as directed ESTRADIOL [id number] Bart Olivarez MD Start: 09-02-2010 VAGIFEM TABS 2 5mcg 1 per vagina Q HS ESTRADIOL TABS [id number] Nurys Nettles ezetimibe 10 mg oral tablet (6 sources) Dietary Cholesterol Absorption Inhibitor Start: 09-02-2010 End: 11-23-2014 take 1 tablet by mouth once daily ZETIA 10 MG TABS One tablet by mouth daily EZETIMIBE [id number] Bart Olivarez MD famotidine 40 mg oral tablet (20 sources) Histamine-2 Receptor Antagonist Start: 08-10-2023 End: 04-21-2024 take 1 tablet by mouth once daily Famotidine 40 mg tablet Discontinued 40 mg PO DAILY September 08, 2023 12:00am November 20, 2023 8:26pm ACID REFLUX Start: 05-27-2019 End: 05-27-2019 famotidine (PEPCID) tablet 2 0 mg Comment on above: Take 1 tablet by nasrin th once daily. fish oil (2 sources) Start: 09-02-2010 take 1 tablet by mouth once daily FISH OIL CAPS One tablet by mouth daily OMEGA-3 FATTY ACIDS CAPS [id number] Nurys Nettles furosemide 20 mg oral tablet (20 sources) Loop Diuretic Start: 01-07-2018 End: 02-19-2018 take 1 tablet by mouth once daily Furosemide 20 mg tablet Discontinued 20 mg PO daily 90 4 January 16, 2018 3:29pm February 19, 2018 6:02pm Start: 01-07-2018 End: 04-22-2019 take 1 tablet by mouth every other day as needed for edema Furosemide 20 mg tablet Discontinued 20 mg PO .QOD as needed for edema May 27, 2018 3:36pm April 22, 2019 2:28pm [id number] CAPS (4 sources) Start: 04-08-2013 take 1 tablet by mouth once daily DEPLIN 15 CAPS One tablet by mouth daily [id number] CAPS [id number] Bart Olivarez MD Start: 04-08-2013 DEPLIN 15 CAPS [id number] CAPS [id number] Julissa Da Silva PA-C levomefolate (20 sources) [...] tablet by mouth daily As needed MELOXICAM [id number] Nurys Nettles 24 hr metoprolol succinate 25 mg extended release oral tablet (20 sources) beta-Adrenergic Dorene Start: 10-03-2023 End: 11-20-2023 take 1 tablet by mouth once daily Metoprolol Succinate 25 mg Tablet Extended Release 24 Hr Discontinued 25 mg PO DAILY 30 30 0 October 03, 2023 12:00am November 20, 2023 8:27pm BLOOD PRESSURE Start: 09-20-2022 End: 02-06-2023 take 0.5 tablet by mouth twice daily Metoprolol Tartrate 25 mg tablet Discontinued 12.5 mg PO Q12H January 15, 2023 12:00am February 06, 2023 2:21pm blood pressure TAKE 1/2 TABLET BY MOUTH TWICE A DAY Start: 05-21-2019 End: 09-20-2022 Metoprolol Tartrate 25 mg ta blet Discontinued 12.5 mg PO TWICE A DAY 90 3 September 19, 2021 12:43pm September 20, 2022 8:50am Start: 05-21-2019 End: 01-15-2023 take 0.5 tablet by mouth twice daily Metoprolol Tartrate Discontinued 0 .ROUTE .COMPLEX 90 September 20, 2022 7:50am January 15, 2023 [...] by mouth daily As needed MONTELUKAST SODIUM [id number] Julissa Da Silva PA-C MULTIPLE VITAMIN (4 sources) Start: 3 take 1 tablet by mouth once daily MULTIVITAMINS TABS One tablet by mouth daily MULTIPLE VITAMIN [id number] Bart Olivarez MD Start: 10-11-2012 End: 04-08-2013 take 1 tablet by mouth once daily MULTIVITAMINS TABS One tablet by mouth daily MULTIPLE VITAMIN [id number] Julissa Da Silva PA-C MULTIVITAMIN ORAL (20 sources) End: 04-21-2024 MULTIVITAMIN ORAL Take by [facility] once daily. 04/21/2024 Discontinued MULTIVITAMIN ORA L Take by mouth once daily. 0 Active Comment on above: Take by mouth once d aily. olopatadine 1 mg/ml ophthalmic solution (4 sources) Histamine-1 Receptor Inhibitor Start: 1 End: 2 PATANOL 0.1 % SOLN As needed OLOPATADINE HCL [id number] Bart Olivarez MD [place]-3 Fatty Acids (Fish Oil Concentrate) 1,000 mg capsule (20 sources) Start: 8 End: 8 take 1 capsule by mouth once daily [place]-3 Fatty Acids (Fish Oil Concentrate) 1,000 mg capsule Discontinued 1000 MG PO daily December 31, 2017 3:53pm May 27, 2018 2:53pm Start: 12-31-2017 End: 05-27-2018 take 1 capsule by mouth once daily [place]-3 Fatty Acids (Fish Oil Concentrate) 1,000 mg capsule Discontinued 1000 mg PO daily December 31, 2017 12:00am May 27, 2018 2:53pm Start: 12-31-2017 End: 05-27-2018 take 1 capsule by mouth once daily [place]-3 Fatty Acids (Fish Oil Concentrate) 1,000 mg capsule Discontinued 1000 MG PO daily December 30, 2017 11:00pm May 27, 2018 1:53pm Start: 12-31-2017 End: 05-27-2018 take 1 capsule by mouth once daily [place]-3 Fatty Acids (Fish Oil Concentrate) 1,000 mg [...] release Discontinued 20 meq PO daily 90 3 January 23, 2018 9:18am February 19, 2018 6:02pm Start: 01-07-2018 End: 04-22-2019 take 10 mEq by mouth every other day Potassium Chloride Discontinued 10 MEQ PO .QOD May 27, 2018 2:36pm April 22, 2019 1:28pm prednisoLONE 10 mg/ml ophthalmic solution (4 sources) Corticosteroid Start: 09-02-2010 End: 11-09-2011 PREDNISOLONE SODIUM PHOSPHATE 1 % SOLN PRN PREDNISOLONE SODIUM PHOSPHATE [id number] Bart Olivarez MD VIT-FE FUMARATE-FA TABS (2 sources) Start: 09-02-2010 take 1 tablet by mouth once daily TABS Multi 0.4mg One tablet by mouth daily VIT-FE FUMARATE-FA TABS [id number] Nurys Nettles psyllium 3400 mg powder for [...] as needed. risperiDONE 0.5 mg oral tablet (20 sources) Atypical Antipsychotic Start: 11-07-19 End: 11-20-19 take 1 tablet by mouth at bedtime Risperidone 0.5 mg Tablet Discontinued 0.5 mg PO AT BEDTIME 0 0 November 07, 2023 12:00am November 20, 2023 8:27pm MOOD Start: 09-14-2023 End: 10-03-2023 take 1 tablet by mouth at bedtime Risperidone 0.25 mg Tablet Discontinued 0.25 mg PO AT BEDTIME 0 0 September 14, 2023 12:00am October 03, 2023 7:41am sleep Start: 09-14-2023 End: 10-03-2023 Vital Tears (16 sources) Start: 10-03-2023 End: 11-02-2023 Vital Tears Discontinued 1 N MA EACH EYE THREE TIMES A DAY 0 October 03, 2023 12:00am November 02, 2023 4:40pm Start: 10-03-2023 Vital Tears Ac tive 1 drp EACH EYE THREE TIMES A DAY 0 October 03, 2023 12:00am vitamin b12 1 mg sublingual tablet (20 sources) Vitamin B12 Start: 09-08-2023 End: 12-22-2023 take 1 tablet under the tongue once daily Cyanocobalamin (Vitamin B-12) 1,000 mcg tablet, sublingual Discontinued 1000 ug SL DAILY September 08, 2023 12:00am December 22, 2023 7:07pm SUPPLEMENT Start: 01-08-2017 take 1 tablet by nasrin once daily B-12 1000 MCG CAPS One tablet by mouth daily CYANOCOBALAMIN [id number] Bart Olivarez MD End: 04-21-2024 take 1 [...] TABS Two tablets by mouth daily CHOLECALCIFEROL [id number] Bart Olivarez MD Start: 09-02-2010 End: 11-09-2011 take 1 tablet by mouth once daily VITAMIN D 1000 UNIT TABS One tablet by mouth daily CHOLECALCIFEROL [id number] Bart Olivarez MD WHEAT DEXTRIN (3 sources) Start: 11-23-2014 BENEFIBER POWD 1 tsp daily WHEAT DEXTRIN [id number] Bart Olivarez MD End: 2019 take 4 g by mouth three times daily at mealtime Wheat Dextrin (BENEFIBER) POWD Take 4 g by mouth 3 times daily (with meals) 0 2019 Discontinued (Therapy completed) Problems Active Problems Problem Classification Problem Date Documented Da te Episodic/Chronic Abdominal hernia (1 source) Disorder of abdominal wall; Translations: [Ventral hernia without obstruction or gangrene] Episodic Acute bronchitis (20 sources) Acute bronchitis; Translations: [Acute bronchitis, unspecified] Episodic Anxiety disorders (1 source) Anxiety disorder, unspecified; Translations: [Anxiety disorder, unspecified] Onset: 5 Chronic Cancer; other and unspecified primary (20 sources) [...] premature beats; Translations: [Premature atrial contraction] Onset: 4 11-24-2013 Chronic Chronic kidney disease (2 sources) Chronic kidney disease; Translations: [Chronic kidney disease, stage 3 unspecified] Onset: 5 Deficiency and other anemia (18 sources) Anemia; Translations: [Anemia, unspecified] 09-10-2023 Episodic Deficiency and other anemia (1 source) Anemia, unspecified; Translations: [Anemia, unspecified] 09-14-2023 Episodic Diseases of white blood cells (20 sources) Leukocytosis; Translations: [Elevated white blood cell count, unspecified] Onset: 2 07-21-2011 Chronic Disorders of lipid metabolism (20 sources) Hyperlipidemia; Translations: [Hyperlipidemia, unspecified] Onset: 1 09-02-2010 Chronic Disorders of teeth and jaw (2 sources) Other unsatisfactory mandaeism of tooth; Translations: [Other specified disorders of teeth and supporting structures] Onset: 5 Episodic Diverticulosis and diverticulitis (20 sources) Diverticulosis of colon; Translations: [Diverticulosis of large intestine without perforation or abscess without bleeding] Onset: 7 04-18-2010 Chronic E Codes: Adverse effects of medical drugs (14 sources) Adverse reaction to drug; Translations: [Adverse effect of unspecified drugs, medicaments and biological substances, initial encounter] 11-30-2023 Episodic Comment on above: Risperdal. Syncope, slurred speech, hallucinations, severe confusion E Codes: Fall (20 sources) Fall; Translations: [Unspecified fall, initial encounter] 06-18-2019 Episodic Esophageal disorders (20 sources) Gastroesophageal reflux disease; Translations: [Gastro-esophageal reflux disease without esophagitis] 09-14-2023 Chronic Essential hypertension (20 sources) Essential hypertension; Translations: [Essential (primary) hypertension] Chronic Fluid and electrolyte disorders (20 sources) Dehydration; Translations: [Dehydration] 2022 Episodic Fracture of neck of femur (hip) (20 sources) Fracture of unspecified part of neck of right femur, initial encounter for closed fracture; Translations: [Displaced fracture of neck of right femur] 01-02-2024 Episodic Fracture of upper limb (20 sources) Closed fracture of humerus; Translations: [Unspecified fracture of shaft of humerus, unspecified arm, initial encounter for closed fracture] Onset: 5 11-09-2023 Episodic Comment on above: Proximal right humer us due to a fall - non-surgical Genitourinary symptoms and ill-defined conditions (14 sources) History of chronic renal impairment; Translations: [Personal history of other diseases of urinary system] 01-02-2024 Episodic Heart valve disorders (20 sources) Tricuspid incompetence, non-rheumatic ; Translations: [Tricuspid valve regurgitation] Onset: 1 06-16-2016 Chronic Immunizations and screening for infectious disease (20 sources) Contact with and (suspected) exposure to other viral communicable diseases; Translations: [Contact with or suspected exposure to other viral communicable disease] Episodic Malaise and fatigue (20 sources) Fatigue; Translations: [Asthenia] Onset: 7 06-26-2016 Episodic Non-Hodgkin`s lymphoma (20 sources) History of malignant lymphoma; Translations: [Personal history of other malignant neoplasms of lymphoid, hematopoietic and related tissues] Onset: 4 12-15-2013 Episodic Nutritional deficiencies (20 sources) Ascorbic acid deficiency; Translations: [Ascorbic acid [...] disease; Translations: [Raynaud's syndrome without gangrene] Onset: 0 09-15-2011 Chronic Other circulatory disease (17 sources) Orthostatic hypotension; Translations: [Orthostatic hypotension] 09-14-2023 Episodic Other circulatory disease (3 sources) Orthostatic hypotension; Translations: [Orthostatic hypotension] 10-04-2023 Episodic Other circulatory disease (14 sources) History of transient ischemic attack; Translations: [Personal history of transient ischemic attack (TIA), and cerebral infarction without residual deficits] 01-02-2024 Episodic Other connective tissue disease (20 sources) Triggering of digit; Translations: [Trigger finger, unspecified finger] 12-02-2021 Episodic Other connective tissue disease (1 source) Trigger finger of left hand; Translations: [Trigger finger, unspecified finger] 12-02-2021 Episodic Other gastrointestinal disorders (1 source) Constipation, unspecified; Translations: [Constipation, unspecified] Onset: Episodic Other gastrointestinal disorders (1 source) Dysphagia, oral phase; Translations: [Dysphagia, oral phase] Onset: Episodic Other hereditary and degenerative nervous system conditions (14 sources) 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; Translations: [Multi-system degeneration of the autonomic nervous system] 01-02-2024 Chronic Other hereditary and degenerative nervous system conditions (1 source) Sympathotonic orthostatic hypotension; Translations: [Multi-system degeneration of the autonomic nervous system] 10-20-2024 Chronic Other hereditary and degenerative nervous system conditions (1 source) Multi-system degeneration of the autonomic nervous system; 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 Other injuries and conditions due to [...] injuries and conditions due to external causes (14 sources) Closed injury of head; Translations: [Unspecified injury of head, initial encounter] 11-30-2023 Episodic Other injuries and conditions due to external causes (14 sources) Open wound; Translations: [Other injury of unspecified body region, initial encounter] 06-07-2022 Episodic Other injuries and conditions due to external causes (14 sources) Abrasion and/or friction burn of multiple sites; Translations: [Unspecified multiple injuries, initial encounter] 11-03-2023 Episodic Other injuries and conditions due to external causes (14 sources) Injury of head; Translations: [Unspecified injury of head, initial encounter] 02-06-2024 Episodic Other lower respiratory disease (1 source) Wheezing; Translations: [Wheezing] Onset: Episodic Other nervous system disorders (17 sources) Disorder of brain; Translations: [Encephalopathy, unspecified] [...] [Dysarthria] 01-16-2023 Episodic Other nervous system disorders (14 sources) H/O: brain disorder; Translations: [Personal history of other diseases of the nervous system and sense organs] 01-02-2024 Episodic Other nervous system disorders (14 sources) Tremor; Translations: [Tremor, unspecified] 05-22-2024 Episodic Other screening for suspected conditions (not mental disorders or infectious disease) (2 sources) Patient encounter status; Translations: [Encounter for screening mammogram for malignant neoplasm of breast] Episodic Other upper respiratory infections (20 sources) Acute sinusitis; Translations: [Acute sinusitis, unspecified] Episodic Parkinson`s disease (20 sources) Parkinson's disease; Translations: [Parkinson's disease] Onset: 0 Chronic Parkinson`s disease (1 source) Parkinson`s disease; Translations: [Parkinson's disease 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)] Onset: 2 Residual codes; unclassified (2 sources) Insomnia; Translations: [Other insomnia] Chronic Residual codes; unclassified (4 sources) REM sleep behavior disorder; Translations: [REM sleep behavior disorder] Chronic Residual codes; unclassified (20 sources) 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; Translations: [Insomnia due to medical condition] Onset: 8 12-31-2017 Chronic Residual codes; unclassified (1 source) REM sleep behavior disorder; 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)] Onset: 3 Chronic Residual codes; unclassified (20 sources) Insomnia; Translations: [Insomnia, unspecified] 12-02-2021 Episodic Superficial injury; contusion (20 sources) Contusion of knee; Translations: [Contusion of unspecified knee, initial encounter] 06-18-2019 Episodic Transient cerebral ischemia (20 sources) Transient cerebral ischemia; Translations: [Transient cerebral ischemic attack, unspecified] 06-28-2023 Chronic Unclassified (14 sources) Dementia due to Parkinson's disease; 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] 01-02-2024 Chronic Unclassified (2 sources) Long-term drug therapy; Translations: [Other day care attendant (current) drug therapy] Onset: 1 09-02-2010 Unclassified (1 source) Cough, unspecified; Translations: [Cough, unspecified] Onset: 5 Unclassified (2 sources) Parkinsonism, unspecified; Translations: [Parkinsonism, unspecified] Onset: 5 Urinary tract infections (1 source) Urinary tract infection, site not specified; Translations: [Urinary tract infection, site not specified] Onset: 5 Episodic Past or Other Problems Problem Classification Problem [...] the nervous system] Onset: 4 Episodic Other nervous system disorders (1 source) Unspecified abnormalities of gait and mobility; Translations: [Abnormality of gait] Onset: 3 Episodic Other nutritional; endocrine; and metabolic disorders (20 sources) Abnormal weight loss; Translations: [Abnormal weight loss] Onset: 8 12-31-2017 Episodic Pneumonia (except that caused by tuberculosis or sexually transmitted disease) (1 source) Pneumonia, unspecified organism; Translations: [Pneumonia, unspecified organism] Onset: 5 Episodic Syncope (20 sources) Syncope and collapse; Translations: [Near syncope] Onset: 1 09-02-2010 Episodic Results Test Name Value Interpretation Reference Range Facility Absolute lymphocyte countOrd ered By: Odalis Saravia on 02-26-2025 Lymphocytes Auto (Unsp spec) [#/Vol] 7.06 10*3/uL High 0.83-4.51 [facility] Absolute neutrophil countOrd ered By: Odalis Saravia on 02-26-2025 Neutrophils (Bld) [#/Vol] 7.6 10*3/uL 2.0-7.7 [facility] Anion gap in Serum or Plasma Ordered By: Odalis Saravia on 02-26-2025 Anion gap [Moles/Vol] 11 mmol/L 5-15 [facility] Automated lymphocyte count a s percentage of total leukocytesOrdered By: Odalis Saravia on 02-26-2025 Lymphocytes/100 WBC Auto (Unsp spec) 37.5 % 19-41 [facility] BUN/creatinine ratioOrdered By: Marthalaila Zuleikacarlito on 02-26-2025 Urea nitrogen/Creatinine [Mass ratio] 31.2 mg/mg High 10-20 [facility] Basophil percentageOrdered B y: Odalis Saravia on 02-26-2025 Basophils/100 WBC (Bld) 2.9 % High 0-1 [facility] Carbon dioxide, total [Moles /volume] in Central venous bloodOrdered By: Ilabonniejeniffer Riccardoermiascarlito on 02-26-2025 CO2 [Moles/Vol] 24.0 mmol/L 21.0-32.0 [facility] Chloride assayOrdered By: Ila marcy Riccardoermiascarlito on 02-26-2025 Chloride [Moles/Vol] 103 mmol/L 98-108 [facility] Eosinophil percentageOrdered By: Odalis Saravia on 02-26-2025 Eosinophils/100 WBC (Bld) 8.5 % High 0-5 [facility] Erythrocyte distribution wid th ratioOrdered By: Odalis Riccardoermiascarlito on 02-26-2025 Erythrocyte distribution width (RBC) [Ratio] 13.3 % 11.6-14.6 [facility] Erythrocyte distribution wid th standard deviationOrdered By: bonnienunnlaila Riccardomary on 02-26-2025 Erythrocyte distribution width (RBC) [Ratio] 47.5 fl High 35.1-43.9 [facility] Glomerular filtration rate ( GFR) estimation/1.73 sq m using serum, plasma, or whole bOrdered By: bonniejeniffer Riccardoermiascarlito on 02-26-2025 GFR/1.73 sq M.predicted among non-blacks MDRD (S/P/Bld) [Vol rate/Area] 52 mL/min/{1.73_m2} Low >60 [facility] Comment on above: mL/min/1.73m2 CKD-EP I Creatinine Equation (2020) Hematocrit Auto (Bld) [Volum e fraction]Ordered By: Ilamarcy Saravia on 02-26-2025 Hematocrit (Bld) [Volume fraction] 36.3 % Low 37-47 [facility] Hemoglobin measurementOrdere d By: Ilabonnielavonnelaila Saravia on 02-26-2025 Hemoglobin (Bld) [Mass/Vol] 11.9 g/dL Low 12.0-15.0 [facility] Immature granulocytes/100 WB C Auto (Bld)Ordered By: Odalis Saravia on 02-26-2025 Immature granulocytes/100 WBC (Bld) 0.400 % 0.0-0.9 [facility] Comment on above: IG% - Immature Granu locytes (promyelocytes, myelocytes and metamyelocytes) > 1% indicates that a LEFT SHIFT is Present. MCV (mean corpuscular volume ) determinationOrdered By: Odalis Saravia on 02-26-2025 MCV (RBC) [Entitic vol] 96.5 fL 81-99 [facility] Mean corpuscular hemoglobin (MCH) determinationOrdered By: Odalis Saravia on 02-26-2025 MCH (RBC) [Entitic mass] 31.6 pg 27.0-32.0 [facility] Mean corpuscular hemoglobin concentration (MCHC) determinationOrdered By: Odalis Saravia on 02-26-2025 MCHC (RBC) [Mass/Vol] 32.8 g/dL 32-36 [facility] Mean platelet volume determi nationOrdered By: Odalis Saravia on 02-26-2025 Platelet mean volume (Bld) [Entitic vol] 10.4 fL 6.2-12.0 [facility] Monocyte percentageOrdered B y: Odalis Saravia on 02-26-2025 Monocytes/100 WBC (Bld) 10.4 % High 0-10 [facility] Neutrophil percentageOrdered By: Odalis Saravia on 02-26-2025 Neutrophils/100 WBC (Bld) 40.3 % Low 47-70 [facility] Nucleated red blood cell per centageOrdered By: Odalis Saravia on 02-26-2025 Nucleated RBC/100 WBC (Bld) [Ratio] 0 % 0-5 [facility] Platelet countOrdered By: Ila Saravia on 02-26-2025 Platelets (Bld) [#/Vol] 330 10*3/uL 150-450 [facility] Platelet estimateOrdered By: Odalis Saravia on 02-26-2025 Platelets LM Ql (Bld) ADEQUATE ADEQ [facility] Potassium measurement (mass/ volume)Ordered By: Odalis Saravia on 02-26-2025 Potassium (Unsp spec) [Mass/Vol] 4.4 mmol/L 3.3-5.1 [facility] Comment on above: Hemolysis present, R esults could be affected. RBC Auto (Bld) [#/Vol]Ordere d By: Odalis Saravia on 02-26-2025 RBC (Bld) [#/Vol] 3.76 10*6/uL Low 4.2-5.4 [facility] Serum creatinine measurement (mass/volume)Ordered By: Odalis Saravia on 02-26-2025 Creatinine [Mass/Vol] 1.03 mg/dL 0.70-1.20 [facility] Serum glucose measurement (m ass/volume)Ordered By: Odalis Saravia on 02-26-2025 Glucose [Mass/Vol] 85 mg/dL 70-99 [facility] Serum or plasma calcium fran urement (mass/volume)Ordered By: Odalis Saravia on 02-26-2025 Calcium [Mass/Vol] 9.2 mg/dL 7.6-11.0 [facility] Serum or plasma urea nitroge n measurement (mass/volume)Ordered By: Odalis Saravia on 02-26-2025 Urea nitrogen [Mass/Vol] 32 mg/dL High 4-19 [facility] Sodium levelOrdered By: Candice de los santosricardo Manjit on 02-26-2025 Sodium [Moles/Vol] 137 mmol/L 133-145 [facility] White blood cell (WBC) count Ordered By: Odalis Saravia on 02-26-2025 WBC (Bld) [#/Vol] 18.8 10*3/uL High 4.4-11.0 [facility] Absolute lymphocyte countOrd ered By: Odalis Saravia on 01-29-2025 Lymphocytes Auto (Unsp spec) [#/Vol] 7.08 10*3/uL High 0.83-4.51 [facility] Absolute neutrophil countOrd ered By: Odalis Saravia on 01-29-2025 Neutrophils (Bld) [#/Vol] 3.8 10*3/uL 2.0-7.7 [facility] Anion gap in Serum or Plasma Ordered By: Odalis Saravia on 01-29-2025 Anion gap [Moles/Vol] 12 mmol/L 5-15 [facility] Automated lymphocyte count a s percentage of total leukocytesOrdered By: Odalis Saravia on 01-29-2025 Lymphocytes/100 WBC Auto (Unsp spec) 50.6 % High 19-41 [facility] BUN/creatinine ratioOrdered By: Odalis Saravia on 01-29-2025 Urea nitrogen/Creatinine [Mass ratio] 27.0 mg/mg High 10-20 [facility] Basophil percentageOrdered B y: Odalis Saravia on 01-29-2025 Basophils/100 WBC (Bld) 3.6 % High 0-1 [facility] Bilirubin directOrdered By: Odalis Saravia on 01-29-2025 Bilirubin.direct [Mass/Vol] 0.13 mg/dL 0.00-0.30 [facility] Bilirubin, totalOrdered By: Odalis Saravia on 01-29-2025 Bilirubin [Mass/Vol] 0.29 mg/dL 0.00-1.30 [facility] Blood manual differential co mment interpretation (narrative result)Ordered By: Odalis Saravia on 01-29-2025 Manual differential comment Porter (Bld) [Interp] SCANNED [facility] Comment on above: LYMPHOCYTOSIS NOTED Carbon dioxide, total [Moles /volume] in Central venous bloodOrdered By: Odalis Saravia on 01-29-2025 CO2 [Moles/Vol] 23.9 mmol/L 21.0-32.0 [facility] Chloride assayOrdered By: Ila Saravia on 01-29-2025 Chloride [Moles/Vol] 102 mmol/L 98-108 [facility] Eosinophil percentageOrdered By: Odalis Saravia on 01-29-2025 Eosinophils/100 WBC (Bld) 7.9 % High 0-5 [facility] Erythrocyte distribution wid th ratioOrdered By: Odalis Saravia on 01-29-2025 Erythrocyte distribution width (RBC) [Ratio] 13.4 % 11.6-14.6 [facility] Erythrocyte distribution wid th standard deviationOrdered By: Odalis Saravia on 01-29-2025 Erythrocyte distribution width (RBC) [Ratio] 47.9 fl High 35.1-43.9 [facility] Glomerular filtration rate ( GFR) estimation/1.73 sq m using serum, plasma, or whole bOrdered By: Odalis Saravia on 01-29-2025 GFR/1.73 sq M.predicted among non-blacks MDRD (S/P/Bld) [Vol rate/Area] 53 mL/min/{1.73_m2} Low >60 [facility] Comment on above: mL/min/1.73m2 CKD-EP I Creatinine Equation (2020) Hematocrit Auto (Bld) [Volum e fraction]Ordered By: Odalis Saravia 01-29-2025 Hematocrit (Bld) [Volume fraction] 34.8 % Low 37-47 [facility] Hemoglobin measurementOrdere d By: Odalis Saravia on 01-29-2025 Hemoglobin (Bld) [Mass/Vol] 11.6 g/dL Low 12.0-15.0 [facility] Immature granulocytes/100 WB C Auto (Bld)Ordered By: Odalis Saravia 01-29-2025 Immature granulocytes/100 WBC (Bld) 0.200 % 0.0-0.9 [facility] Comment on above: IG% - Immature Granu locytes (promyelocytes, myelocytes and metamyelocytes) > 1% indicates that a LEFT SHIFT is Present. Laboratory - Chemistry and C hemistry - challengeOrdered By: Odalis Saravia 01-29-2025 AST [Catalytic activity/Vol] 32 U/L <32 [facility] MCV (mean corpuscular volume ) determinationOrdered By: Odalis Saravia 01-29-2025 MCV (RBC) [Entitic vol] 96.4 fL 81-99 [facility] Mean corpuscular hemoglobin (MCH) determinationOrdered By: Odalis Saravia 5 MCH (RBC) [Entitic mass] 32.1 pg High 27.0-32.0 [facility] Mean corpuscular hemoglobin concentration (MCHC) determinationOrdered By: Odalis Saravia on 01-29-2025 MCHC (RBC) [Mass/Vol] 33.3 g/dL 32-36 [facility] Mean platelet volume determi nationOrdered By: Odalis Saravai on 01-29-2025 Platelet mean volume (Bld) [Entitic vol] 10.1 fL 6.2-12.0 [facility] Monocyte percentageOrdered B y: Odalis Saravia on 01-29-2025 Monocytes/100 WBC (Bld) 10.4 % High 0-10 [facility] Neutrophil percentageOrdered By: Candicenunnlaila Saravia on 01-29-2025 Neutrophils/100 WBC (Bld) 27.3 % Low 47-70 [facility] Nucleated red blood cell per centageOrdered By: Odalis Saravia on 01-29-2025 Nucleated RBC/100 WBC (Bld) [Ratio] 0 % 0-5 [facility] Platelet countOrdered By: Ila Saravia on 01-29-2025 Platelets (Bld) [#/Vol] 365 10*3/uL 150-450 [facility] Potassium measurement (mass/ volume)Ordered By: Marthalaila Guermiascarlito on 01-29-2025 Potassium (Unsp spec) [Mass/Vol] 4.4 mmol/L 3.3-5.1 [facility] RBC Auto (Bld) [#/Vol]Ordere d By: Odalis Tocarlito on 01-29-2025 RBC (Bld) [#/Vol] 3.61 10*6/uL Low 4.2-5.4 [facility] Review by pathologistOrdered By: Ilabonnielavonnelaila Saravia on 01-29-2025 Pathologist review Porter (Unsp spec) [Interp] Heide mckenna [facility] Pathologist review Porter (Unsp spec) [Interp] Reviewed [facility] Comment on above: Previous reported re sult: Heide mckenna Edited by: IVAN on 02/05/25:1555 AMENDED REPORT 02/05/25 1555 PATH REV previously reported as: October Serum creatinine measurement (mass/volume)Ordered By: Odalis Saravia on 01-29-2025 Creatinine [Mass/Vol] 1.02 mg/dL 0.70-1.20 [facility] Serum globulin measurementOr dered By: Odalis Saravia on 01-29-2025 Globulin (S) [Mass/Vol] 2.7 g/dL 2.2-4.2 [facility] Serum glucose measurement (m ass/volume)Ordered By: Odalis Saravia on 01-29-2025 Glucose [Mass/Vol] 83 mg/dL 70-99 [facility] Serum or plasma alanine ga otransferase (ALT) measurementOrdered By: Odalis Saravia on 01-29-2025 ALT [Catalytic activity/Vol] 13 U/L <35 [facility] Serum or plasma albumin fran urement (mass/volume)Ordered By: Odalis Saravia on 01-29-2025 Albumin [Mass/Vol] 3.9 g/dL 3.4-4.8 [facility] Serum or plasma alkaline karthik sphatase measurementOrdered By: Odalis Saravia on 01-29-2025 ALP [Catalytic activity/Vol] 166 U/L High 35-104 [facility] Serum or plasma calcium fran urement (mass/volume)Ordered By: Odalis Saravia on 01-29-2025 Calcium [Mass/Vol] 9.4 mg/dL 7.6-11.0 [facility] Serum or plasma urea nitroge n measurement (mass/volume)Ordered By: Odalis Saravia on 01-29-2025 Urea nitrogen [Mass/Vol] 28 mg/dL High 4-19 [facility] Sodium levelOrdered By: Candice Saravia on 01-29-2025 Sodium [Moles/Vol] 138 mmol/L 133-145 [facility] Total proteinOrdered By: Curtis Saravia on 01-29-2025 Protein [Mass/Vol] 6.5 g/dL 5.9-8.4 [facility] Vitamin B12 ser/plasOrdered By: Odalis Saravia on 01-29-2025 Cobalamin (Vitamin B12) [Mass/Vol] 1118 pg/mL High 180-914 [facility] White blood cell (WBC) count Ordered By: Odalis Saravia on 01-29-2025 WBC (Bld) [#/Vol] 14.0 10*3/uL High 4.4-11.0 [facility] Absolute lymphocyte countOrd ered By: Odalis Saravia on 01-02-2025 Lymphocytes Auto (Unsp spec) [#/Vol] 7.51 10*3/uL High 0.83-4.51 [facility] Absolute neutrophil countOrd ered By: Odalis Saravia on 01-02-2025 Neutrophils (Bld) [#/Vol] 4.6 10*3/uL 2.0-7.7 [facility] Anion gap in Serum or Plasma Ordered By: Odalis Saravia on 01-02-2025 Anion gap [Moles/Vol] 12 mmol/L 5-15 [facility] Automated lymphocyte count a s percentage of total leukocytesOrdered By: Odalis Saravia on 01-02-2025 Lymphocytes/100 WBC Auto (Unsp spec) 48.3 % High 19-41 [facility] BUN/creatinine ratioOrdered By: Odalis Saravia on 01-02-2025 Urea nitrogen/Creatinine [Mass ratio] 23.5 mg/mg High 10-20 [facility] Basophil percentageOrdered B y: Odalis Saravia on 01-02-2025 Basophils/100 WBC (Bld) 3.5 % High 0-1 [facility] Blood manual differential co mment interpretation (narrative result)Ordered By: Odalis Saravia on 01-02-2025 Manual differential comment Porter (Bld) [Interp] COMMENT [facility] Comment on above: LYMPHOCYTOSIS.BASOPH SRIDEVI. Carbon dioxide, total [Moles /volume] in Central venous bloodOrdered By: Odalis Saravia on 01-02-2025 CO2 [Moles/Vol] 22.6 mmol/L 21.0-32.0 [facility] Chloride assayOrdered By: Ila Saravia on 01-02-2025 Chloride [Moles/Vol] 101 mmol/L 98-108 [facility] Eosinophil percentageOrdered By: Odalis Saravia on 01-02-2025 Eosinophils/100 WBC (Bld) 10.2 % High 0-5 [facility] Erythrocyte distribution wid th ratioOrdered By: Odalis Saravia on 01-02-2025 Erythrocyte distribution width (RBC) [Ratio] 13.3 % 11.6-14.6 [facility] Erythrocyte distribution wid th standard deviationOrdered By: Odalis Saravia on 01-02-2025 Erythrocyte distribution width (RBC) [Ratio] 46.4 fl High 35.1-43.9 [facility] Glomerular filtration rate ( GFR) estimation/1.73 sq m using serum, plasma, or whole bOrdered By: Odalis Saravia on 01-02-2025 GFR/1.73 sq M.predicted among non-blacks MDRD (S/P/Bld) [Vol rate/Area] 46 mL/min/{1.73_m2} Low >60 [facility] Comment on above: mL/min/1.73m2 CKD-EP I Creatinine Equation (2020) Hematocrit Auto (Bld) [Volum e fraction]Ordered By: Odalis Saravia on 01-02-2025 Hematocrit (Bld) [Volume fraction] 33.7 % Low 37-47 [facility] Hemoglobin measurementOrdere d By: Odalis Saravia 01-02-2025 Hemoglobin (Bld) [Mass/Vol] 11.3 g/dL Low 12.0-15.0 [facility] Immature granulocytes/100 WB C Auto (Bld)Ordered By: Odalis Saravia 01-02-2025 Immature granulocytes/100 WBC (Bld) 0.200 % 0.0-0.9 [facility] Comment on above: IG% - Immature Granu locytes (promyelocytes, myelocytes and metamyelocytes) > 1% indicates that a LEFT SHIFT is Present. MCV (mean corpuscular volume ) determinationOrdered By: Odalis Saravia on 01-02-2025 MCV (RBC) [Entitic vol] 94.7 fL 81-99 [facility] Mean corpuscular hemoglobin (MCH) determinationOrdered By: Odalis Saravia on 01-02-2025 MCH (RBC) [Entitic mass] 31.7 pg 27.0-32.0 [facility] Mean corpuscular hemoglobin concentration (MCHC) determinationOrdered By: Odalis Saravia on 01-02-2025 MCHC (RBC) [Mass/Vol] 33.5 g/dL 32-36 [facility] Mean platelet volume determi nationOrdered By: Odalis Saravia on 01-02-2025 Platelet mean volume (Bld) [Entitic vol] 10.3 fL 6.2-12.0 [facility] Monocyte percentageOrdered B y: Odalis Saravia on 01-02-2025 Monocytes/100 WBC (Bld) 8.1 % 0-10 [facility] Neutrophil percentageOrdered By: Odalis Saravia on 01-02-2025 Neutrophils/100 WBC (Bld) 29.7 % Low 47-70 [facility] Nucleated red blood cell per centageOrdered By: Odalis Saravia on 01-02-2025 Nucleated RBC/100 WBC (Bld) [Ratio] 0 % 0-5 [facility] Platelet countOrdered By: Ila bonniejeniffer Saravia on 01-02-2025 Platelets (Bld) [#/Vol] 372 10*3/uL 150-450 [facility] Potassium measurement (mass/ volume)Ordered By: Odalis Saravia on 01-02-2025 Potassium (Unsp spec) [Mass/Vol] 4.3 mmol/L 3.3-5.1 [facility] RBC Auto (Bld) [#/Vol]Ordere d By: Odalis Saravia on 01-02-2025 RBC (Bld) [#/Vol] 3.56 10*6/uL Low 4.2-5.4 [facility] Serum creatinine measurement (mass/volume)Ordered By: Odalis Saravia on 01-02-2025 Creatinine [Mass/Vol] 1.15 mg/dL 0.70-1.20 [facility] Serum glucose measurement (m ass/volume)Ordered By: Odalis Saravia on 01-02-2025 Glucose [Mass/Vol] 87 mg/dL 70-99 [facility] Serum or plasma calcium fran urement (mass/volume)Ordered By: Odalis Saravia on 01-02-2025 Calcium [Mass/Vol] 9.4 mg/dL 7.6-11.0 [facility] Serum or plasma urea nitroge n measurement (mass/volume)Ordered By: Odalis Saravia on 01-02-2025 Urea nitrogen [Mass/Vol] 27 mg/dL High 4-19 [facility] Sodium levelOrdered By: Candice jeniffer Manjit on 01-02-2025 Sodium [Moles/Vol] 136 mmol/L 133-145 [facility] White blood cell (WBC) count Ordered By: Odalis Saravia on 01-02-2025 WBC (Bld) [#/Vol] 15.6 10*3/uL High 4.4-11.0 [facility] Absolute lymphocyte countOrd ered By: Odalis Saravia on 12-25-2024 Lymphocytes Auto (Unsp spec) [#/Vol] 6.32 10*3/uL High 0.83-4.51 [facility] Absolute neutrophil countOrd ered By: Odalis Saravia on 12-25-2024 Neutrophils (Bld) [#/Vol] 4.7 10*3/uL 2.0-7.7 [facility] Anion gap in Serum or Plasma Ordered By: Odalis Saravia on 12-25-2024 Anion gap [Moles/Vol] 10 mmol/L 5-15 [facility] Automated lymphocyte count a s percentage of total leukocytesOrdered By: Odalis Saravia on 12-25-2024 Lymphocytes/100 WBC Auto (Unsp spec) 45.0 % High 19-41 [facility] BUN/creatinine ratioOrdered By: Odalis Saravia on 12-25-2024 Urea nitrogen/Creatinine [Mass ratio] 30.3 mg/mg High 10-20 [facility] Basophil percentageOrdered B y: Odalis Saravia on 12-25-2024 Basophils/100 WBC (Bld) 3.1 % High 0-1 [facility] Blood manual differential co mment interpretation (narrative result)Ordered By: Odalis Saravia on 12-25-2024 Manual differential comment Porter (Bld) [Interp] SCANNED [facility] Comment on above: LYMPHOCYTOSIS NOTED Carbon dioxide, total [Moles /volume] in Central venous bloodOrdered By: Odalis Saravia on 12-25-2024 CO2 [Moles/Vol] 26.3 mmol/L 21.0-32.0 [facility] Chloride assayOrdered By: Ila bonniejeniffer Saravia on 12-25-2024 Chloride [Moles/Vol] 102 mmol/L 98-108 [facility] Eosinophil percentageOrdered By: Odalis Saravia on 12-25-2024 Eosinophils/100 WBC (Bld) 9.5 % High 0-5 [facility] Erythrocyte distribution wid th ratioOrdered By: Odalis Saravia on 12-25-2024 Erythrocyte distribution width (RBC) [Ratio] 13.4 % 11.6-14.6 [facility] Erythrocyte distribution wid th standard deviationOrdered By: Ilabonnielavonnelaila Saravia on 12-25-2024 Erythrocyte distribution width (RBC) [Ratio] 47.7 fl High 35.1-43.9 [facility] Glomerular filtration rate ( GFR) estimation/1.73 sq m using serum, plasma, or whole bOrdered By: Odalis Saravia on 12-25-2024 GFR/1.73 sq M.predicted among non-blacks MDRD (S/P/Bld) [Vol rate/Area] 57 mL/min/{1.73_m2} Low >60 [facility] Comment on above: mL/min/1.73m2 CKD-EP I Creatinine Equation (2020) Hematocrit Auto (Bld) [Volum e fraction]Ordered By: Odalis Saravia on 12-25-2024 Hematocrit (Bld) [Volume fraction] 35.7 % Low 37-47 [facility] Hemoglobin measurementOrdere d By: Odalis Saravia on 12-25-2024 Hemoglobin (Bld) [Mass/Vol] 11.7 g/dL Low 12.0-15.0 [facility] Immature granulocytes/100 WB C Auto (Bld)Ordered By: Odalis Saravia on 12-25-2024 Immature granulocytes/100 WBC (Bld) 0.300 % 0.0-0.9 [facility] Comment on above: IG% - Immature Granu locytes (promyelocytes, myelocytes and metamyelocytes) > 1% indicates that a LEFT SHIFT is Present. MCV (mean corpuscular volume ) determinationOrdered By: Odalis Saravia on 12-25-2024 MCV (RBC) [Entitic vol] 98.3 fL 81-99 [facility] Mean corpuscular hemoglobin (MCH) determinationOrdered By: Odalis Saravia on 12-25-2024 MCH (RBC) [Entitic mass] 32.2 pg High 27.0-32.0 [facility] Mean corpuscular hemoglobin concentration (MCHC) determinationOrdered By: Odalis Saravia on 12-25-2024 MCHC (RBC) [Mass/Vol] 32.8 g/dL 32-36 [facility] Mean platelet volume determi nationOrdered By: Odalis Saravia on 12-25-2024 Platelet mean volume (Bld) [Entitic vol] 10.0 fL 6.2-12.0 [facility] Monocyte percentageOrdered B y: Odalis Saravia on 12-25-2024 Monocytes/100 WBC (Bld) 9.0 % 0-10 [facility] Neutrophil percentageOrdered By: Odalis Saravia on 12-25-2024 Neutrophils/100 WBC (Bld) 33.1 % Low 47-70 [facility] Nucleated red blood cell per centageOrdered By: Odalis Saravia on 12-25-2024 Nucleated RBC/100 WBC (Bld) [Ratio] 0 % 0-5 [facility] Platelet countOrdered By: Ila Saravia on 12-25-2024 Platelets (Bld) [#/Vol] 381 10*3/uL 150-450 [facility] Potassium measurement (mass/ volume)Ordered By: Odalis Saravia on 12-25-2024 Potassium (Unsp spec) [Mass/Vol] 4.6 mmol/L 3.3-5.1 [facility] RBC Auto (Bld) [#/Vol]Ordere d By: Odalis Saravia on 12-25-2024 RBC (Bld) [#/Vol] 3.63 10*6/uL Low 4.2-5.4 [facility] Review by pathologistOrdered By: Odalis Saravia on 12-25-2024 Pathologist review Porter (Unsp spec) [Interp] Heide mckenna [facility] Pathologist review Porter (Unsp spec) [Interp] Reviewed [facility] Comment on above: Previous reported re sult: Hiede mckenna Edited by: IVAN on 01/07/25:1019SEE REPORT IN PATIENT'S EMR AMENDED REPORT 01/07/25 1019 PATH REV previously reported as: Heide mckenna Serum creatinine measurement (mass/volume)Ordered By: Odalis Saravia on 12-25-2024 Creatinine [Mass/Vol] 0.95 mg/dL 0.70-1.20 [facility] Serum glucose measurement (m ass/volume)Ordered By: Odalis Saravia on 12-25-2024 Glucose [Mass/Vol] 77 mg/dL 70-99 [facility] Serum or plasma calcium fran urement (mass/volume)Ordered By: Odalis Saravia on 12-25-2024 Calcium [Mass/Vol] 9.5 mg/dL 7.6-11.0 [facility] Serum or plasma urea nitroge n measurement (mass/volume)Ordered By: Odalis Saravia on 12-25-2024 Urea nitrogen [Mass/Vol] 29 mg/dL High 4-19 [facility] Sodium levelOrdered By: Candice Saravia on 12-25-2024 Sodium [Moles/Vol] 138 mmol/L 133-145 [facility] White blood cell (WBC) count Ordered By: Odalis Saravia on 12-25-2024 WBC (Bld) [#/Vol] 14.1 10*3/uL High 4.4-11.0 [facility] Absolute lymphocyte countOrd ered By: Odalis Saravia on 11-27-2024 Lymphocytes Auto (Unsp spec) [#/Vol] 6.85 10*3/uL High 0.83-4.51 [facility] Absolute neutrophil countOrd ered By: Odalis Guermiascarlito on 11-27-2024 Neutrophils (Bld) [#/Vol] 6.9 10*3/uL 2.0-7.7 [facility] Anion gap in Serum or Plasma Ordered By: Odalis Saravia on 11-27-2024 Anion gap [Moles/Vol] 12 mmol/L 5-15 [facility] Automated lymphocyte count a s percentage of total leukocytesOrdered By: Odalis Saravia on 11-27-2024 Lymphocytes/100 WBC Auto (Unsp spec) 42.1 % High 19-41 [facility] BUN/creatinine ratioOrdered By: Odalis Saravia on 11-27-2024 Urea nitrogen/Creatinine [Mass ratio] 28.1 mg/mg High 10-20 [facility] Basophil percentageOrdered B y: Odalis Saravia on 11-27-2024 Basophils/100 WBC (Bld) 2.6 % High 0-1 [facility] Blood manual differential co mment interpretation (narrative result)Ordered By: Odalis Saravia on 11-27-2024 Manual differential comment Porter (Bld) [Interp] COMMENT [facility] Comment on above: LYMPHOCYTOSIS. Carbon dioxide, total [Moles /volume] in Central venous bloodOrdered By: Odalis Saravia on 11-27-2024 CO2 [Moles/Vol] 23.6 mmol/L 21.0-32.0 [facility] Chloride assayOrdered By: Ila Saravia on 11-27-2024 Chloride [Moles/Vol] 102 mmol/L 98-108 [facility] Eosinophil percentageOrdered By: Odalis Saravia on 11-27-2024 Eosinophils/100 WBC (Bld) 3.8 % 0-5 [facility] Erythrocyte distribution wid th ratioOrdered By: Odalis Saravia on 11-27-2024 Erythrocyte distribution width (RBC) [Ratio] 12.9 % 11.6-14.6 [facility] Erythrocyte distribution wid th standard deviationOrdered By: Odalis Saravia on 11-27-2024 Erythrocyte distribution width (RBC) [Ratio] 45.9 fl High 35.1-43.9 [facility] Glomerular filtration rate ( GFR) estimation/1.73 sq m using serum, plasma, or whole bOrdered By: Odalis Saravia on 11-27-2024 GFR/1.73 sq M.predicted among non-blacks MDRD (S/P/Bld) [Vol rate/Area] 51 mL/min/{1.73_m2} Low >60 [facility] Comment on above: mL/min/1.73m2 CKD-EP I Creatinine Equation (2020) Hematocrit Auto (Bld) [Volum e fraction]Ordered By: Odalis Saravia on 11-27-2024 Hematocrit (Bld) [Volume fraction] 33.1 % Low 37-47 [facility] Hemoglobin measurementOrdere d By: Odalis Saravia on 11-27-2024 Hemoglobin (Bld) [Mass/Vol] 11.0 g/dL Low 12.0-15.0 [facility] Immature granulocytes/100 WB C Auto (Bld)Ordered By: Odalis Saravia on 11-27-2024 Immature granulocytes/100 WBC (Bld) 0.500 % 0.0-0.9 [facility] Comment on above: IG% - Immature Granu locytes (promyelocytes, myelocytes and metamyelocytes) > 1% indicates that a LEFT SHIFT is Present. MCV (mean corpuscular volume ) determinationOrdered By: Odalis Saravia on 11-27-2024 MCV (RBC) [Entitic vol] 96.8 fL 81-99 [facility] Mean corpuscular hemoglobin (MCH) determinationOrdered By: Odalis Saravia 11-27-2024 MCH (RBC) [Entitic mass] 32.2 pg High 27.0-32.0 [facility] Mean corpuscular hemoglobin concentration (MCHC) determinationOrdered By: Oadlis Saravia 11-27-2024 MCHC (RBC) [Mass/Vol] 33.2 g/dL 32-36 [facility] Mean platelet volume determi nationOrdered By: Ilabonnielavonnelaila Guermiascarlito on 11-27-2024 Platelet mean volume (Bld) [Entitic vol] 9.2 fL 6.2-12.0 [facility] Monocyte percentageOrdered B y: Ilabonnielavonnelaila Guermiascarlito on 11-27-2024 Monocytes/100 WBC (Bld) 8.8 % 0-10 [facility] Neutrophil percentageOrdered By: Ilabonnielavonnelaila Guermiascarlito on 11-27-2024 Neutrophils/100 WBC (Bld) 42.2 % Low 47-70 [facility] Nucleated red blood cell per centageOrdered By: Ilabonnielavonnelaila Guermiascarlito on 11-27-2024 Nucleated RBC/100 WBC (Bld) [Ratio] 0 % 0-5 [facility] Platelet countOrdered By: Ila marcy Riccardoermiascarlito on 11-27-2024 Platelets (Bld) [#/Vol] 571 10*3/uL High 150-450 [facility] Potassium measurement (mass/ volume)Ordered By: Odalis Saravia on 11-27-2024 Potassium (Unsp spec) [Mass/Vol] 4.5 mmol/L 3.3-5.1 [facility] RBC Auto (Bld) [#/Vol]Ordere d By: Candicelavonnelaila Guermiascarlito on 11-27-2024 RBC (Bld) [#/Vol] 3.42 10*6/uL Low 4.2-5.4 [facility] Serum creatinine measurement (mass/volume)Ordered By: Odalis Saravia on 11-27-2024 Creatinine [Mass/Vol] 1.05 mg/dL 0.70-1.20 [facility] Serum glucose measurement (m ass/volume)Ordered By: Odalis Saravia on 11-27-2024 Glucose [Mass/Vol] 88 mg/dL 70-99 [facility] Serum or plasma calcium fran urement (mass/volume)Ordered By: Odalis Saravia on 11-27-2024 Calcium [Mass/Vol] 9.4 mg/dL 7.6-11.0 [facility] Serum or plasma urea nitroge n measurement (mass/volume)Ordered By: Odalis Saravia on 11-27-2024 Urea nitrogen [Mass/Vol] 30 mg/dL High 4-19 [facility] Sodium levelOrdered By: Ilabonnie swift Manjit on 11-27-2024 Sodium [Moles/Vol] 138 mmol/L 133-145 [facility] White blood cell (WBC) count Ordered By: Odalis Saravia on 11-27-2024 WBC (Bld) [#/Vol] 16.3 10*3/uL High 4.4-11.0 [facility] Urine Legionella pneumophila antigen detectionOrdered By: Odalis Saravia on 11-26-2024 L. pneumophila Ag Ql (U) [facility] Absolute lymphocyte countOrd ered By: Odalis Saravia on 10-23-2024 Lymphocytes Auto (Unsp spec) [#/Vol] 6.66 10*3/uL High 0.83-4.51 [facility] Absolute neutrophil countOrd ered By: Odalis Saravia on 10-23-2024 Neutrophils (Bld) [#/Vol] 3.5 10*3/uL 2.0-7.7 [facility] Anion gap in Serum or Plasma Ordered By: Odalis Saravia on 10-23-2024 Anion gap [Moles/Vol] 10 mmol/L 5-15 [facility] Automated lymphocyte count a s percentage of total leukocytesOrdered By: Odalis Saravia on 10-23-2024 Lymphocytes/100 WBC Auto (Unsp spec) 46.7 % High 19-41 [facility] BUN/creatinine ratioOrdered By: Odalis Saravia on 10-23-2024 Urea nitrogen/Creatinine [Mass ratio] 33.7 mg/mg High 10-20 [facility] Basophil percentageOrdered B y: Odalis Saravia on 10-23-2024 Basophils/100 WBC (Bld) 3.1 % High 0-1 [facility] Bilirubin directOrdered By: Odalis Saravia on 10-23-2024 Bilirubin.direct [Mass/Vol] 0.14 mg/dL 0.00-0.30 [facility] Bilirubin, totalOrdered By: Odalis Saravia on 10-23-2024 Bilirubin [Mass/Vol] 0.35 mg/dL 0.00-1.30 [facility] Calculated very low density lipoprotein (VLDL) cholesterol measurementOrdered By: Odalis Saravia on 10-23-2024 Calculated very low density lipoprotein (VLDL) cholesterol measurement 25 mg/dL 5-40 [facility] Carbon dioxide, total [Moles /volume] in Central venous bloodOrdered By: Odalis Saravia on 10-23-2024 CO2 [Moles/Vol] 24.0 mmol/L 21.0-32.0 [facility] Chloride assayOrdered By: Ila Saravia on 10-23-2024 Chloride [Moles/Vol] 103 mmol/L 98-108 [facility] Eosinophil percentageOrdered By: Odalis Saravia on 10-23-2024 Eosinophils/100 WBC (Bld) 14.9 % High 0-5 [facility] Erythrocyte distribution wid th ratioOrdered By: Odalis Saravia on 10-23-2024 Erythrocyte distribution width (RBC) [Ratio] 13.1 % 11.6-14.6 [facility] Erythrocyte distribution wid th standard deviationOrdered By: Odalis Saravia on 10-23-2024 Erythrocyte distribution width (RBC) [Ratio] 47.2 fl High 35.1-43.9 [facility] Glomerular filtration rate ( GFR) estimation/1.73 sq m using serum, plasma, or whole bOrdered By: Odalis Saravia on 10-23-2024 GFR/1.73 sq M.predicted among non-blacks MDRD (S/P/Bld) [Vol rate/Area] 56 mL/min/{1.73_m2} Low >60 [facility] Comment on above: mL/min/1.73m2 CKD-EP I Creatinine Equation (2020) Hematocrit Auto (Bld) [Volum e fraction]Ordered By: Odalis Saravia on 10-23-2024 Hematocrit (Bld) [Volume fraction] 35.2 % Low 37-47 [facility] Hemoglobin measurementOrdere d By: Odalis Saravia on 10-23-2024 Hemoglobin (Bld) [Mass/Vol] 11.6 g/dL Low 12.0-15.0 [facility] Immature granulocytes/100 WB C Auto (Bld)Ordered By: Odalis Saravia on 10-23-2024 Immature granulocytes/100 WBC (Bld) 0.200 % 0.0-0.9 [facility] Comment on above: IG% - Immature Granu locytes (promyelocytes, myelocytes and metamyelocytes) > 1% indicates that a LEFT SHIFT is Present. LDL calc ser/plasOrdered By: Odalis Saravia on 10-23-2024 Cholesterol in LDL [Mass/Vol] 123 mg/dL [facility] Comment on above: Xwwckpngzl=057-378 m g/dL & Higher Qqzw=743 mg/dL or greater Laboratory - Chemistry and C hemistry - challengeOrdered By: Odalis aSravia on 10-23-2024 AST [Catalytic activity/Vol] 44 U/L High <32 [facility] MCV (mean corpuscular volume ) determinationOrdered By: Odalis Saravia on 10-23-2024 MCV (RBC) [Entitic vol] 97.5 fL 81-99 [facility] Mean corpuscular hemoglobin (MCH) determinationOrdered By: Odalis Saravia on 10-23-2024 MCH (RBC) [Entitic mass] 32.1 pg High 27.0-32.0 [facility] Mean corpuscular hemoglobin concentration (MCHC) determinationOrdered By: Odalis Saravia on 10-23-2024 MCHC (RBC) [Mass/Vol] 33.0 g/dL 32-36 [facility] Mean platelet volume determi nationOrdered By: Odalis Saravia on 10-23-2024 Platelet mean volume (Bld) [Entitic vol] 10.2 fL 6.2-12.0 [facility] Monocyte percentageOrdered B y: Odalis Saravia on 10-23-2024 Monocytes/100 WBC (Bld) 10.7 % High 0-10 [facility] Neutrophil percentageOrdered By: Odalis Saravia on 05-08-2025 Neutrophils/100 WBC (Bld) 24.4 % Low 47-70 [facility] Nucleated red blood cell per centageOrdered By: Odalis Saravia on 10-23-2024 Nucleated RBC/100 WBC (Bld) [Ratio] 0 % 0-5 [facility] Platelet countOrdered By: Ila Saravia on 10-23-2024 Platelets (Bld) [#/Vol] 339 10*3/uL 150-450 [facility] Potassium measurement (mass/ volume)Ordered By: Odalis Saravia on 10-23-2024 Potassium (Unsp spec) [Mass/Vol] 4.5 mmol/L 3.3-5.1 [facility] RBC Auto (Bld) [#/Vol]Ordere d By: Odalis Saravia on 10-23-2024 RBC (Bld) [#/Vol] 3.61 10*6/uL Low 4.2-5.4 [facility] Screening total cholesterol/ high density lipoprotein (HDL) cholesterol ratioOrdered By: Odalis Saravia on 10-23-2024 Cholesterol.total/Choles terol in HDL [Mass ratio] 4.11 {ratio} [facility] Serum creatinine measurement (mass/volume)Ordered By: Odalis Saravia on 10-23-2024 Creatinine [Mass/Vol] 0.97 mg/dL 0.70-1.20 [facility] Serum globulin measurementOr dered By: Odalis Saravia on 10-23-2024 Globulin (S) [Mass/Vol] 2.6 g/dL 2.2-4.2 [facility] Serum glucose measurement (m ass/volume)Ordered By: Odalis Saravia on 10-23-2024 Glucose [Mass/Vol] 85 mg/dL 70-99 [facility] Serum or plasma alanine ga otransferase (ALT) measurementOrdered By: Odalis Saravia on 10-23-2024 ALT [Catalytic activity/Vol] 15 U/L <35 [facility] Serum or plasma albumin fran urement (mass/volume)Ordered By: Odalis Saravia on 10-23-2024 Albumin [Mass/Vol] 3.8 g/dL 3.4-4.8 [facility] Serum or plasma alkaline karthik sphatase measurementOrdered By: Odalis Saravia on 10-23-2024 ALP [Catalytic activity/Vol] 176 U/L High 35-104 [facility] Serum or plasma calcium fran urement (mass/volume)Ordered By: Odalis Saravia on 10-23-2024 Calcium [Mass/Vol] 9.1 mg/dL 7.6-11.0 [facility] Serum or plasma cholesterol in HDL measurement (mass/volume)Ordered By: Odalis Saravia on 10-23-2024 Cholesterol in HDL [Mass/Vol] 48 mg/dL >40 [facility] Comment on above: National Cholesterol Education Program (NCEP) guidelines:<40 mg/dL: Low HDL-cholesterol (major risk factor for CHD)>= 60 mg/dL: High HDL-cholesterol (negative risk factor for CHD)HDL-cholesterol is affected by a number of factors, e.g. smoking, exercise, hormones, sex and age. Serum or plasma cholesterol measurement (mass/volume)Ordered By: Odalis Saravia on 10-23-2024 Cholesterol [Mass/Vol] 196 mg/dL <201 [facility] Comment on above: Cholesterol level, D esirable <200 mg/dLBorderline high cholesterol 200-239 mg/dLHigh cholesterol >=240 mg/dLRecommendations of the NCEP Adult Treatment Panel for the following risk-cutoff thresholds for the [place] population. Serum or plasma urea nitroge n measurement (mass/volume)Ordered By: Odalis Saravia on 10-23-2024 Urea nitrogen [Mass/Vol] 33 mg/dL High 4-19 [facility] Sodium levelOrdered By: Candice Saravia on 10-23-2024 Sodium [Moles/Vol] 137 mmol/L 133-145 [facility] Total proteinOrdered By: Curtis Saravia on 10-23-2024 Protein [Mass/Vol] 6.5 g/dL 5.9-8.4 [facility] Triglycerides measurementOrd ered By: Odalis Saravia on 10-23-2024 Triglyceride [Mass/Vol] 126 mg/dL <199 [facility] Comment on above: The drugs N-Acetylcy steine and Metamizole may falsely depress this assay. Normal range: <150 mg/dLBorderline High: 150-199 mg/dLHigh: 200-499 mg/dLVery High: >500 mg/dL Vitamin B12 ser/plasOrdered By: Odalis Saravia on 10-23-2024 Cobalamin (Vitamin B12) [Mass/Vol] 1049 pg/mL High 180-914 [facility] White blood cell (WBC) count Ordered By: Odalis Saravia on 10-23-2024 WBC (Bld) [#/Vol] 14.3 10*3/uL High 4.4-11.0 [facility] Absolute lymphocyte countOrd ered By: Odalis Saravia on 10-22-2024 Lymphocytes Auto (Unsp spec) [#/Vol] 6.78 10*3/uL High 0.83-4.51 [facility] Absolute neutrophil countOrd ered By: Odalis Saravia on 10-22-2024 Neutrophils (Bld) [#/Vol] 3.8 10*3/uL 2.0-7.7 [facility] Anion gap in Serum or Plasma Ordered By: Odalis Saravia on 10-22-2024 Anion gap [Moles/Vol] 10 mmol/L 5-15 [facility] Automated lymphocyte count a s percentage of total leukocytesOrdered By: Odalis Saravia on 10-22-2024 Lymphocytes/100 WBC Auto (Unsp spec) 49.3 % High 19-41 [facility] BUN/creatinine ratioOrdered By: Odalis Saravia on 10-22-2024 Urea nitrogen/Creatinine [Mass ratio] 29.8 mg/mg High 10-20 [facility] Basophil percentageOrdered B y: Odalis Saravia on 10-22-2024 Basophils/100 WBC (Bld) 3.5 % High 0-1 [facility] Bilirubin, totalOrdered By: Odalis Saravia on 10-22-2024 Bilirubin [Mass/Vol] 0.40 mg/dL 0.00-1.30 [facility] Carbon dioxide, total [Moles /volume] in Central venous bloodOrdered By: Odalis Saravia on 10-22-2024 CO2 [Moles/Vol] 23.1 mmol/L 21.0-32.0 [facility] Chloride assayOrdered By: Ila Saravia on 10-22-2024 Chloride [Moles/Vol] 104 mmol/L 98-108 [facility] Eosinophil percentageOrdered By: Odalis Saravia on 10-22-2024 Eosinophils/100 WBC (Bld) 10.4 % High 0-5 [facility] Erythrocyte distribution wid th ratioOrdered By: bonnienunnlaila Saravia on 10-22-2024 Erythrocyte distribution width (RBC) [Ratio] 13.2 % 11.6-14.6 [facility] Erythrocyte distribution wid th standard deviationOrdered By: bonnienunnlaila Saravia on 10-22-2024 Erythrocyte distribution width (RBC) [Ratio] 47.1 fl High 35.1-43.9 [facility] Glomerular filtration rate ( GFR) estimation/1.73 sq m using serum, plasma, or whole bOrdered By: Odalis Saravia on 10-22-2024 GFR/1.73 sq M.predicted among non-blacks MDRD (S/P/Bld) [Vol rate/Area] 60 mL/min/{1.73_m2} >60 [facility] Comment on above: mL/min/1.73m2 CKD-EP I Creatinine Equation (2020) Hematocrit Auto (Bld) [Volum e fraction]Ordered By: Odalis Saravia on 10-22-2024 Hematocrit (Bld) [Volume fraction] 35.2 % Low 37-47 [facility] [facility] Hemoglobin measurementOrdere d By: Odalis Saravia on 10-22-2024 Hemoglobin (Bld) [Mass/Vol] 11.6 g/dL Low 12.0-15.0 [facility] Immature granulocytes/100 WB C Auto (Bld)Ordered By: Odalis Saravia on 10-22-2024 Immature granulocytes/100 WBC (Bld) 0.300 % 0.0-0.9 [facility] Comment on above: IG% - Immature Granu locytes (promyelocytes, myelocytes and metamyelocytes) > 1% indicates that a LEFT SHIFT is Present. Laboratory - Chemistry and C hemistry - challengeOrdered By: Odalis Saravia on 10-22-2024 AST [Catalytic activity/Vol] 38 U/L High <32 [facility] MCV (mean corpuscular volume ) determinationOrdered By: Odalis Saravia on 10-22-2024 MCV (RBC) [Entitic vol] 96.2 fL 81-99 [facility] Mean corpuscular hemoglobin (MCH) determinationOrdered By: Odalis Saravia on 10-22-2024 MCH (RBC) [Entitic mass] 31.7 pg 27.0-32.0 [facility] Mean corpuscular hemoglobin concentration (MCHC) determinationOrdered By: Odalis Saravia on 10-22-2024 MCHC (RBC) [Mass/Vol] 33.0 g/dL 32-36 [facility] Mean platelet volume determi nationOrdered By: Odalis Saravia on 10-22-2024 Platelet mean volume (Bld) [Entitic vol] 10.3 fL 6.2-12.0 [facility] Monocyte percentageOrdered B y: Odalis Saravia on 10-22-2024 Monocytes/100 WBC (Bld) 9.1 % 0-10 [facility] Neutrophil percentageOrdered By: Odalis Saravia on 10-22-2024 Neutrophils/100 WBC (Bld) 27.4 % Low 47-70 [facility] Nucleated red blood cell per centageOrdered By: Odalis Saravia on 10-22-2024 Nucleated RBC/100 WBC (Bld) [Ratio] 0 % 0-5 [facility] Platelet countOrdered By: Ila Saravia on 10-22-2024 Platelets (Bld) [#/Vol] 346 10*3/uL 150-450 [facility] Platelet estimateOrdered By: Odalis Saravia on 10-22-2024 Platelets LM Ql (Bld) A ADEQ [facility] Potassium measurement (mass/ volume)Ordered By: Odalis Saravia on 10-22-2024 Potassium (Unsp spec) [Mass/Vol] 4.4 mmol/L 3.3-5.1 [facility] RBC Auto (Bld) [#/Vol]Ordere d By: Odalis Saravia on 10-22-2024 RBC (Bld) [#/Vol] 3.66 10*6/uL Low 4.2-5.4 [facility] Review by pathologistOrdered By: Odalis Saravia on 10-22-2024 Pathologist review Porter (Unsp spec) [Interp] Reviewed [facility] Comment on above: Previous reported re sult: Heide mckenna Edited by: IVAN on 11/06/24:1024SEE REPORT IN PATIENT'S EMR AMENDED REPORT 11/06/24 1024 PATH REV previously reported as: Heide mckenna Serum creatinine measurement (mass/volume)Ordered By: Odalis Saravia on 10-22-2024 Creatinine [Mass/Vol] 0.92 mg/dL 0.70-1.20 [facility] Serum globulin measurementOr dered By: Odalis Saravia on 10-22-2024 Globulin (S) [Mass/Vol] 2.8 g/dL 2.2-4.2 [facility] Serum glucose measurement (m ass/volume)Ordered By: Odalis Saravia on 10-22-2024 Glucose [Mass/Vol] 90 mg/dL 70-99 [facility] Serum or plasma alanine ga otransferase (ALT) measurementOrdered By: Odalis Saravia on 10-22-2024 ALT [Catalytic activity/Vol] 19 U/L <35 [facility] Serum or plasma albumin fran urement (mass/volume)Ordered By: Odalis Saravia on 10-22-2024 Albumin [Mass/Vol] 4.0 g/dL 3.4-4.8 [facility] Serum or plasma albumin/glob ulin mass ratioOrdered By: Odalis Saravia on 10-22-2024 Albumin/Globulin [Mass ratio] 1.4 {ratio} 0.9-2.4 [facility] Serum or plasma alkaline karthik sphatase measurementOrdered By: Odalis Saravia on 10-22-2024 ALP [Catalytic activity/Vol] 173 U/L High 35-104 [facility] Serum or plasma calcium fran urement (mass/volume)Ordered By: Odalis Saravia on 10-22-2024 Calcium [Mass/Vol] 9.3 mg/dL 7.6-11.0 [facility] Serum or plasma urea nitroge n measurement (mass/volume)Ordered By: Odalis Saravia on 10-22-2024 Urea nitrogen [Mass/Vol] 28 mg/dL High 4-19 [facility] Sodium levelOrdered By: Candice Saravia on 10-22-2024 Sodium [Moles/Vol] 137 mmol/L 133-145 [facility] Teardrop cell detectionOrder ed By: Odalis Saravia on 10-22-2024 Dacrocytes LM Ql (Bld) 1+ [facility] Total proteinOrdered By: Curtis Saravia on 10-22-2024 Protein [Mass/Vol] 6.8 g/dL 5.9-8.4 [facility] White blood cell (WBC) count Ordered By: Odalis Saravia on 10-22-2024 WBC (Bld) [#/Vol] 13.7 10*3/uL High 4.4-11.0 [facility] CNOVon 10-20-2024 CNOV Office Visit (RUTHN) KAYLENE HAYNES ([id number]) 1935 F Date Time Provider Department 10/20/24 [...] or you can send a message through [employer]. You can also now schedule and select appointments through [employer]. MD Chrissy Quiros Kristin, MD 10/20/2024 11:40 AM Signed [facility] - FOLLOW UP EVALUATION Primary Movement Disorders Neurologist: Selvin Felder MD Primary Movement Disorders TONE: Not yet assigned Recording using [employer] ([employer] software for draft documentation of the visit was discussed with the patient/authorized automobile sales representative; all questions welcomed and answered. Patient/authorized automobile sales representative agreed to proceed Howard Zimmerman MD [id number] [address] Dear Howard Zimmerman MD: I had the [...] endorse any fluid restrictions advised by a basket maker. She reports persistent fatigue, stating, "I just [...] Prior Anti-Parkinson (more content not included)... Normal [facility] Absolute lymphocyte countOrd ered By: Odalis Saravia on 09-18-2024 Lymphocytes Auto (Unsp spec) [#/Vol] 6.98 10*3/uL High 0.83-4.51 [facility] Absolute neutrophil countOrd ered By: Odalis Saravia on 09-18-2024 Neutrophils (Bld) [#/Vol] 4.3 10*3/uL 2.0-7.7 [facility] Anion gap in Serum or Plasma Ordered By: Odalis Saravia on 09-18-2024 Anion gap [Moles/Vol] 12 mmol/L 5-15 [facility] Automated lymphocyte count a s percentage of total leukocytesOrdered By: Odalis Saravia on 09-18-2024 Lymphocytes/100 WBC Auto (Unsp spec) 46.1 % High 19-41 [facility] BUN/creatinine ratioOrdered By: Odalis Saravia on 09-18-2024 Urea nitrogen/Creatinine [Mass ratio] 21.8 mg/mg High 10-20 [facility] Basophil percentageOrdered B y: Odalis Saravia on 09-18-2024 Basophils/100 WBC (Bld) 2.9 % High 0-1 [facility] Bilirubin directOrdered By: Odalis Saravia on 09-18-2024 Bilirubin.direct [Mass/Vol] 0.19 mg/dL 0.00-0.30 [facility] Bilirubin, totalOrdered By: Odalis Saravia on 09-18-2024 Bilirubin [Mass/Vol] 0.42 mg/dL 0.00-1.30 [facility] Carbon dioxide, total [Moles /volume] in Central venous bloodOrdered By: Odalis Saravia on 09-18-2024 CO2 [Moles/Vol] 21.8 mmol/L 21.0-32.0 [facility] Chloride assayOrdered By: Ila Saravia on 09-18-2024 Chloride [Moles/Vol] 104 mmol/L 98-108 [facility] Eosinophil percentageOrdered By: Odalis Saravia on 09-18-2024 Eosinophils/100 WBC (Bld) 13.4 % High 0-5 [facility] Erythrocyte distribution wid th (RBC) [Ratio]Ordered By: Odalis Saravia on 09-18-2024 Erythrocyte distribution width (RBC) [Entitic vol] 46.9 fL High 35.1-43.9 [facility] Erythrocyte distribution wid th ratioOrdered By: Odalis Saravia on 09-18-2024 Erythrocyte distribution width (RBC) [Ratio] 13.2 % 11.6-14.6 [facility] Erythrocyte distribution wid th standard deviationOrdered By: Odalis Saravia on 09-18-2024 Erythrocyte distribution width (RBC) [Ratio] 46.9 fl High 35.1-43.9 [facility] GFR/1.73 sq M.predicted jitendra g non-blacks MDRD (S/P/Bld) [Vol rate/Area]Ordered By: Odalis Saravia on 09-18-2024 Estimated GFR (MDRD) Non-Af Amer 44 Low >60 [facility] Comment on above: mL/min/1.73m2 CKD-EP I Creatinine Equation (2020) Glomerular filtration rate ( GFR) estimation/1.73 sq m using serum, plasma, or whole bOrdered By: Odalis Saravia on 09-18-2024 GFR/1.73 sq M.predicted among non-blacks MDRD (S/P/Bld) [Vol rate/Area] 44 mL/min/{1.73_m2} Low >60 [facility] Comment on above: mL/min/1.73m2 CKD-EP I Creatinine Equation (2020) Hematocrit Auto (Bld) [Volum e fraction]Ordered By: Odalis Saravia on 09-18-2024 Hematocrit (Bld) [Volume fraction] 34.5 % Low 37-47 [facility] Hemoglobin measurementOrdere d By: Odalis Saravia on 09-18-2024 Hemoglobin (Bld) [Mass/Vol] 11.4 g/dL Low 12.0-15.0 [facility] Immature granulocytes/100 WB C Auto (Bld)Ordered By: Odalis Saravia on 09-18-2024 Immature granulocytes/100 WBC (Bld) 0.300 % 0.0-0.9 [facility] Comment on above: IG% - Immature Granu locytes (promyelocytes, myelocytes and metamyelocytes) > 1% indicates that a LEFT SHIFT is Present. Laboratory - Chemistry and C hemistry - challengeOrdered By: Odalis Saravia on 09-18-2024 AST [Catalytic activity/Vol] 41 U/L High <32 [facility] Lymphocytes Auto (Unsp spec) [#/Vol]Ordered By: Efmarcy Toe on 09-18-2024 Lymphocytes (Bld) [#/Vol] 6.98 10*3/uL High 0.83-4.51 [facility] Lymphocytes/100 WBC Auto (Un sp spec)Ordered By: Odalis Saravia on 09-18-2024 Lymphocytes/100 WBC (Bld) 46.1 % High 19-41 [facility] MCV (mean corpuscular volume ) determinationOrdered By: Odalis Saravia on 09-18-2024 MCV (RBC) [Entitic vol] 96.6 fL 81-99 [facility] Mean corpuscular hemoglobin (MCH) determinationOrdered By: Odalis Saravia on 09-18-2024 MCH (RBC) [Entitic mass] 31.9 pg 27.0-32.0 [facility] Mean corpuscular hemoglobin concentration (MCHC) determinationOrdered By: Odalis Saravia on 09-18-2024 MCHC (RBC) [Mass/Vol] 33.0 g/dL 32-36 [facility] Mean platelet volume determi nationOrdered By: Odalis Saravia on 09-18-2024 Platelet mean volume (Bld) [Entitic vol] 10.4 fL 6.2-12.0 [facility] Monocyte percentageOrdered B y: Odalis Saravia on 09-18-2024 Monocytes/100 WBC (Bld) 8.8 % 0-10 [facility] Neutrophil percentageOrdered By: Odalis Toe on 09-18-2024 Neutrophils/100 WBC (Bld) 28.5 % Low 47-70 [facility] Nucleated red blood cell per centageOrdered By: Odalis Saravia on 09-18-2024 Nucleated RBC/100 WBC (Bld) [Ratio] 0 % 0-5 [facility] Platelet countOrdered By: Ila Saravia on 09-18-2024 Platelets (Bld) [#/Vol] 328 10*3/uL 150-450 [facility] Potassium (Unsp spec) [Mass/ Vol]Ordered By: Odalis Saravia on 09-18-2024 Potassium [Moles/Vol] 4.5 mmol/L 3.3-5.1 [facility] Potassium measurement (mass/ volume)Ordered By: Odalis Saravia on 09-18-2024 Potassium (Unsp spec) [Mass/Vol] 4.5 mmol/L 3.3-5.1 [facility] RBC Auto (Bld) [#/Vol]Ordere d By: Odalis Saravia on 09-18-2024 RBC (Bld) [#/Vol] 3.57 10*6/uL Low 4.2-5.4 [facility] Serum creatinine measurement (mass/volume)Ordered By: Odalis Saravia on 09-18-2024 Creatinine [Mass/Vol] 1.19 mg/dL 0.70-1.20 [facility] Serum globulin measurementOr dered By: Odalis Saravia on 09-18-2024 Globulin (S) [Mass/Vol] 2.7 g/dL 2.2-4.2 [facility] Serum glucose measurement (m ass/volume)Ordered By: Odalis Saravia on 09-18-2024 Glucose [Mass/Vol] 83 mg/dL 70-99 [facility] Serum or plasma alanine ga otransferase (ALT) measurementOrdered By: Odalis Saravia on 09-18-2024 ALT [Catalytic activity/Vol] 5 U/L <35 [facility] Serum or plasma albumin fran urement (mass/volume)Ordered By: Odalis Saravia on 09-18-2024 Albumin [Mass/Vol] 3.8 g/dL 3.4-4.8 [facility] Serum or plasma alkaline karthik sphatase measurementOrdered By: Odalis Saravia on 09-18-2024 ALP [Catalytic activity/Vol] 142 U/L High 35-104 [facility] Serum or plasma calcium fran urement (mass/volume)Ordered By: Odalis Saravia on 09-18-2024 Calcium [Mass/Vol] 9.1 mg/dL 7.6-11.0 [facility] Serum or plasma urea nitroge n measurement (mass/volume)Ordered By: Ilamarcy Saravia on 09-18-2024 Urea nitrogen [Mass/Vol] 26 mg/dL High 4-19 [facility] Sodium levelOrdered By: Candice swift Manjit on 09-18-2024 Sodium [Moles/Vol] 137 mmol/L 133-145 [facility] Total proteinOrdered By: Curtis mo Riccardoermiascarlito on 09-18-2024 Protein [Mass/Vol] 6.5 g/dL 5.9-8.4 [facility] Vitamin B12 ser/plasOrdered By: Marthalaila Saravia on 09-18-2024 Cobalamin (Vitamin B12) [Mass/Vol] 1000 pg/mL High 180-914 [facility] Vitamin D, 25-hydroxyOrdered By: Odalis Saravia on 09-18-2024 Vitamin D 25-Hydroxy 42.0 ng/mL 30-100 [facility] Comment on above: Vitamin D StatusDefi ciency: <20 ng/mL (50nmol/L)Insufficiency: 20-30 ng/mL (50-75 nmol/L)Sufficiency: 30-100 ng/mL (75-250 nmol/L)Toxicity: >100 ng/mL (>250 nmol/L) White blood cell (WBC) count Ordered By: Odalis Saravia on 09-18-2024 WBC (Bld) [#/Vol] 15.1 10*3/uL High 4.4-11.0 [facility] Absolute lymphocyte countOrd ered By: Odalis Saravia on 09-11-2024 Lymphocytes Auto (Unsp spec) [#/Vol] 6.28 10*3/uL High 0.83-4.51 [facility] Absolute neutrophil countOrd ered By: Ilamarcy Saravia on 09-11-2024 Neutrophils (Bld) [#/Vol] 4.3 10*3/uL 2.0-7.7 [facility] Anion gap in Serum or Plasma Ordered By: Odalis Saravai on 09-11-2024 Anion gap [Moles/Vol] 9 mmol/L 5-15 [facility] Automated lymphocyte count a s percentage of total leukocytesOrdered By: Odalis Riccardoermiascarlito on 09-11-2024 Lymphocytes/100 WBC Auto (Unsp spec) 45.1 % High 19-41 [facility] BUN/creatinine ratioOrdered By: Odalis Tocarlito on 09-11-2024 Urea nitrogen/Creatinine [Mass ratio] 27.1 mg/mg High 10-20 [facility] Basophil percentageOrdered B y: Odalis Saravia on 09-11-2024 Basophils/100 WBC (Bld) 3.2 % High 0-1 [facility] Carbon dioxide, total [Moles /volume] in Central venous bloodOrdered By: Ilamarcy Guermiascarlito on 09-11-2024 CO2 [Moles/Vol] 25.4 mmol/L 21.0-32.0 [facility] Chloride assayOrdered By: Ila miladylaila Guermiascarlito on 09-11-2024 Chloride [Moles/Vol] 104 mmol/L 98-108 [facility] Eosinophil percentageOrdered By: marcy Saravia on 09-11-2024 Eosinophils/100 WBC (Bld) 10.6 % High 0-5 [facility] Erythrocyte distribution wid th (RBC) [Ratio]Ordered By: Ilabonniejeniffer Tocarlito on 09-11-2024 Erythrocyte distribution width (RBC) [Entitic vol] 47.8 fL High 35.1-43.9 [facility] Erythrocyte distribution wid th ratioOrdered By: Odalis Riccardoermiascarlito on 09-11-2024 Erythrocyte distribution width (RBC) [Ratio] 13.3 % 11.6-14.6 [facility] Erythrocyte distribution wid th standard deviationOrdered By: bonnienunnlaila Zuleikacarlito on 09-11-2024 Erythrocyte distribution width (RBC) [Ratio] 47.8 fl High 35.1-43.9 [facility] GFR/1.73 sq M.predicted jitendra g non-blacks MDRD (S/P/Bld) [Vol rate/Area]Ordered By: Odalis Saravia on 09-11-2024 Estimated GFR (MDRD) Non-Af Amer 53 Low >60 [facility] Comment on above: mL/min/1.73m2 CKD-EP I Creatinine Equation (2020) Glomerular filtration rate ( GFR) estimation/1.73 sq m using serum, plasma, or whole bOrdered By: Odalis Saravia on 09-11-2024 GFR/1.73 sq M.predicted among non-blacks MDRD (S/P/Bld) [Vol rate/Area] 53 mL/min/{1.73_m2} Low >60 [facility] Comment on above: mL/min/1.73m2 CKD-EP I Creatinine Equation (2020) Hematocrit Auto (Bld) [Volum e fraction]Ordered By: Odalis Saravia on 09-11-2024 Hematocrit (Bld) [Volume fraction] 37.5 % 37-47 [facility] Hemoglobin measurementOrdere d By: Odalis Saravia on 09-11-2024 Hemoglobin (Bld) [Mass/Vol] 12.2 g/dL 12.0-15.0 [facility] Immature granulocytes/100 WB C Auto (Bld)Ordered By: Odalis Saravia on 09-11-2024 Immature granulocytes/100 WBC (Bld) 0.300 % 0.0-0.9 [facility] Comment on above: IG% - Immature Granu locytes (promyelocytes, myelocytes and metamyelocytes) > 1% indicates that a LEFT SHIFT is Present. Lymphocytes Auto (Unsp spec) [#/Vol]Ordered By: Odalis Saravia on 09-11-2024 Lymphocytes (Bld) [#/Vol] 6.28 10*3/uL High 0.83-4.51 [facility] Lymphocytes/100 WBC Auto (Un sp spec)Ordered By: Odalis Saravia on 09-11-2024 Lymphocytes/100 WBC (Bld) 45.1 % High 19-41 [facility] MCV (mean corpuscular volume ) determinationOrdered By: Odalis Saravia on 09-11-2024 MCV (RBC) [Entitic vol] 98.4 fL 81-99 [facility] Mean corpuscular hemoglobin (MCH) determinationOrdered By: Odalis Saravia on 09-11-2024 MCH (RBC) [Entitic mass] 32.0 pg 27.0-32.0 [facility] Mean corpuscular hemoglobin concentration (MCHC) determinationOrdered By: Odalis Saravia on 09-11-2024 MCHC (RBC) [Mass/Vol] 32.5 g/dL 32-36 [facility] Mean platelet volume determi nationOrdered By: Odalis Saravai on 09-11-2024 Platelet mean volume (Bld) [Entitic vol] 11.0 fL 6.2-12.0 [facility] Monocyte percentageOrdered B y: Odalis Saravia on 09-11-2024 Monocytes/100 WBC (Bld) 9.8 % 0-10 [facility] Neutrophil percentageOrdered By: Odalis Saravia on 09-11-2024 Neutrophils/100 WBC (Bld) 31.0 % Low 47-70 [facility] Nucleated red blood cell per centageOrdered By: Odalis Saravia on 09-11-2024 Nucleated RBC/100 WBC (Bld) [Ratio] 0 % 0-5 [facility] Platelet countOrdered By: Ila Saravia on 09-11-2024 Platelets (Bld) [#/Vol] 267 10*3/uL 150-450 [facility] Platelet estimateOrdered By: Odalis Saravia on 09-11-2024 Platelets LM Ql (Bld) A ADEQ [facility] Platelets LM Ql (Bld)Ordered By: Odalis Saravia on 09-11-2024 Platelet Estimate A [facility] Potassium (Unsp spec) [Mass/ Vol]Ordered By: Odalis Saravia on 09-11-2024 Potassium [Moles/Vol] 4.5 mmol/L 3.3-5.1 [facility] Potassium measurement (mass/ volume)Ordered By: Odalis Saravia on 09-11-2024 Potassium (Unsp spec) [Mass/Vol] 4.5 mmol/L 3.3-5.1 [facility] RBC Auto (Bld) [#/Vol]Ordere d By: Odalis Saravia on 09-11-2024 RBC (Bld) [#/Vol] 3.81 10*6/uL Low 4.2-5.4 [facility] Reactive lymphocyte countOrd ered By: Odalis Saravia on 09-11-2024 Reactive Lymphocytes 1+ [facility] Serum creatinine measurement (mass/volume)Ordered By: Odalis Saravia on 09-11-2024 Creatinine [Mass/Vol] 1.02 mg/dL 0.70-1.20 [facility] Serum glucose measurement (m ass/volume)Ordered By: Odalis Saravia on 09-11-2024 Glucose [Mass/Vol] 83 mg/dL 70-99 [facility] Serum or plasma calcium fran urement (mass/volume)Ordered By: Odalis Saravia on 09-11-2024 Calcium [Mass/Vol] 9.3 mg/dL 7.6-11.0 [facility] Serum or plasma urea nitroge n measurement (mass/volume)Ordered By: Odalis Saravia on 09-11-2024 Urea nitrogen [Mass/Vol] 28 mg/dL High 4-19 [facility] Sodium levelOrdered By: Candice Saravia on 09-11-2024 Sodium [Moles/Vol] 138 mmol/L 133-145 [facility] White blood cell (WBC) count Ordered By: Odalis Saravia on 09-11-2024 WBC (Bld) [#/Vol] 13.9 10*3/uL High 4.4-11.0 [facility] Absolute lymphocyte countOrd ered By: Odalis Saravia on 08-14-2024 Lymphocytes Auto (Unsp spec) [#/Vol] 7.18 10*3/uL High 0.83-4.51 [facility] Absolute neutrophil countOrd ered By: Odails Saravia on 08-14-2024 Neutrophils (Bld) [#/Vol] 3.4 10*3/uL 2.0-7.7 [facility] Automated lymphocyte count a s percentage of total leukocytesOrdered By: Odalis Saravia on 08-14-2024 Lymphocytes/100 WBC Auto (Unsp spec) 55.1 % High 19-41 [facility] BUN/creatinine ratioOrdered By: Odalis Saravia on 08-14-2024 Urea nitrogen/Creatinine [Mass ratio] 29.0 mg/mg High 10-20 [facility] Basophil percentageOrdered B y: Odalis Saravia on 08-14-2024 Basophils/100 WBC (Bld) 3.1 % High 0-1 [facility] Carbon dioxide measurementOr dered By: Odalis Saravia on 08-14-2024 CO2 [Moles/Vol] 22.8 mmol/L 22.0-29.0 [facility] Chloride measurementOrdered By: Odalis Saravia on 08-14-2024 Chloride [Moles/Vol] 104 mmol/L 96-108 [facility] Creatinine [Moles/Vol]Ordere d By: Odalis Saravia on 08-14-2024 Creatinine [Mass/Vol] 1.0 mg/dL 0.6-1.0 [facility] Eosinophil percentageOrdered By: Odalis Saravia on 08-14-2024 Eosinophils/100 WBC (Bld) 4.1 % 0-5 [facility] Erythrocyte distribution wid th (RBC) [Ratio]Ordered By: Odalis Saravia on 08-14-2024 Erythrocyte distribution width (RBC) [Entitic vol] 48.2 fL High 35.1-43.9 [facility] Erythrocyte distribution wid th ratioOrdered By: Odalis Saravia on 08-14-2024 Erythrocyte distribution width (RBC) [Ratio] 13.4 % 11.6-14.6 [facility] Erythrocyte distribution wid th standard deviationOrdered By: Odalis Saravia on 08-14-2024 Erythrocyte distribution width (RBC) [Ratio] 48.2 fl High 35.1-43.9 [facility] GFR/1.73 sq M.predicted jitendra g non-blacks MDRD (S/P/Bld) [Vol rate/Area]Ordered By: Odalis Saravia on 08-14-2024 Estimated GFR (MDRD) Non-Af Amer 54 Low >60 [facility] Comment on above: mL/min/1.73m2 CKD-EP I Creatinine Equation (2020) Glomerular filtration rate ( GFR) estimation/1.73 sq m using serum, plasma, or whole bOrdered By: Odalis Saravia on 08-14-2024 GFR/1.73 sq M.predicted among non-blacks MDRD (S/P/Bld) [Vol rate/Area] 54 mL/min/{1.73_m2} Low >60 [facility] Comment on above: mL/min/1.73m2 CKD-EP I Creatinine Equation (2020) Hematocrit Auto (Bld) [Volum e fraction]Ordered By: marcy Saravia on 08-14-2024 Hematocrit (Bld) [Volume fraction] 35.0 % Low 37-47 [facility] Hemoglobin measurementOrdere d By: Odalis Saravia on 08-14-2024 Hemoglobin (Bld) [Mass/Vol] 11.5 g/dL Low 12.0-15.0 [facility] Immature granulocytes/100 WB C Auto (Bld)Ordered By: bonnienunnlaila Saravia on 08-14-2024 Immature granulocytes/100 WBC (Bld) 0.200 % 0.0-0.9 [facility] Comment on above: IG% - Immature Granu locytes (promyelocytes, myelocytes and metamyelocytes) > 1% indicates that a LEFT SHIFT is Present. Lymphocytes Auto (Unsp spec) [#/Vol]Ordered By: Odalis Saravia on 08-14-2024 Lymphocytes (Bld) [#/Vol] 7.18 10*3/uL High 0.83-4.51 [facility] Lymphocytes/100 WBC Auto (Un sp spec)Ordered By: Odalis Saravia on 08-14-2024 Lymphocytes/100 WBC (Bld) 55.1 % High 19-41 [facility] MCV (mean corpuscular volume ) determinationOrdered By: Odalis Saravia on 08-14-2024 MCV (RBC) [Entitic vol] 97.2 fL 81-99 [facility] Mean corpuscular hemoglobin (MCH) determinationOrdered By: Odalis Saravia 08-14-2024 MCH (RBC) [Entitic mass] 31.9 pg 27.0-32.0 [facility] Mean corpuscular hemoglobin concentration (MCHC) determinationOrdered By: Odalis Saravia on 08-14-2024 MCHC (RBC) [Mass/Vol] 32.9 g/dL 32-36 [facility] Mean platelet volume determi nationOrdered By: Odalis Saravia on 08-14-2024 Platelet mean volume (Bld) [Entitic vol] 10.0 fL 6.2-12.0 [facility] Monocyte percentageOrdered B y: Odalis Saravia on 08-14-2024 Monocytes/100 WBC (Bld) 11.4 % High 0-10 [facility] Neutrophil percentageOrdered By: Odalis Saravia on 08-14-2024 Neutrophils/100 WBC (Bld) 26.1 % Low 47-70 [facility] [facility] Nucleated red blood cell per centageOrdered By: Odalis Saravia on 08-14-2024 Nucleated RBC/100 WBC (Bld) [Ratio] 0 % 0-5 [facility] Platelet countOrdered By: Ila Saravia on 08-14-2024 Platelets (Bld) [#/Vol] 372 10*3/uL 150-450 [facility] RBC Auto (Bld) [#/Vol]Ordere d By: Odalis Saravia on 08-14-2024 RBC (Bld) [#/Vol] 3.60 10*6/uL Low 4.2-5.4 [facility] Reactive lymphocyte countOrd ered By: Odalis Saravia on 08-14-2024 Reactive Lymphocytes 2+ [facility] Serum glucose measurement (m ass/volume)Ordered By: Odalis Saravia on 08-14-2024 Glucose [Mass/Vol] 85 mg/dL 70-99 [facility] Serum or plasma anion gap de termination (moles/volume)Ordered By: Odalis Saravia on 08-14-2024 Anion gap [Moles/Vol] 12 mmol/L 5-15 [facility] Serum or plasma calcium fran urement (mass/volume)Ordered By: Odalis Saravia on 08-14-2024 Calcium [Mass/Vol] 9.5 mg/dL 7.6-11.0 [facility] Serum or plasma creatinine m easurement (moles/volume)Ordered By: Ilabonnielavonnelaila Guermiascarlito on 08-14-2024 Creatinine [Moles/Vol] 1.0 mg/dL 0.6-1.0 [facility] Serum or plasma potassium me asurementOrdered By: Odalis Saravia on 08-14-2024 Potassium [Moles/Vol] 4.5 mmol/L 3.3-5.1 [facility] Serum or plasma sodium measu rement (moles/volume)Ordered By: Odalis Saravia on 08-14-2024 Sodium [Moles/Vol] 138 mmol/L 133-145 [facility] Serum or plasma urea nitroge n measurement (mass/volume)Ordered By: Odalis Guermiascarlito on 08-14-2024 Urea nitrogen [Mass/Vol] 29 mg/dL High 4-19 [facility] White blood cell (WBC) count Ordered By: Odalis Guermiascarlito on 08-14-2024 WBC (Bld) [#/Vol] 13.0 10*3/uL High 4.4-11.0 [facility] Absolute lymphocyte countOrd ered By: Odalis Guermiascarlito on 07-17-2024 Lymphocytes Auto (Unsp spec) [#/Vol] 8.58 10*3/uL High 0.83-4.51 [facility] Absolute neutrophil countOrd ered By: Odalis Guermiascarlito on 07-17-2024 Neutrophils (Bld) [#/Vol] 4.1 10*3/uL 2.0-7.7 [facility] Automated lymphocyte count a s percentage of total leukocytesOrdered By: Odalis Saravia on 07-17-2024 Lymphocytes/100 WBC Auto (Unsp spec) 53.6 % High 19-41 [facility] Basophil percentageOrdered B y: Odalis Saravia on 07-17-2024 Basophils/100 WBC (Bld) 3.1 % High 0-1 [facility] Blood urea nitrogen (BUN)/cr eatinine ratioOrdered By: Odalis Saravia on 07-17-2024 Urea nitrogen/Creatinine [Mass ratio] 23.9 mg/mg High 10-20 [facility] Carbon dioxide measurementOr dered By: Odalis Saravia on 07-17-2024 CO2 [Moles/Vol] 26.0 mmol/L 21.0-32.0 [facility] Chloride measurementOrdered By: Odalis Saravia on 07-17-2024 Chloride [Moles/Vol] 106 mmol/L 98-107 [facility] Eosinophil percentageOrdered By: Odalis Saravia on 07-17-2024 Eosinophils/100 WBC (Bld) 8.2 % High 0-5 [facility] Erythrocyte distribution wid th (RBC) [Ratio]Ordered By: Odalis Saravia on 07-17-2024 Erythrocyte distribution width (RBC) [Entitic vol] 47.9 fL High 35.1-43.9 [facility] Erythrocyte distribution wid th ratioOrdered By: Odalis Saravia on 07-17-2024 Erythrocyte distribution width (RBC) [Ratio] 13.6 % 11.6-14.6 [facility] Erythrocyte distribution wid th standard deviationOrdered By: Odalis Saravia on 07-17-2024 Erythrocyte distribution width (RBC) [Ratio] 47.9 fl High 35.1-43.9 [facility] Estimated glomerular filtrat ion rate (GFR) AmericanOrdered By: Odalis Saravia on 07-17-2024 Estimated GFR (MDRD) Amer 56 mL/min Low >60 [facility] Comment on above: GFR Calc Glomerular filtration rate ( GFR) estimationOrdered By: Odalis Saravia on 07-17-2024 Estimated GFR (MDRD) Non-Af Amer 46 mL/min Low >60 [facility] Comment on above: Non- GFR Calc GFR/1.73 sq M.predicted among non-blacks MDRD (S/P/Bld) [Vol rate/Area] 46 mL/min/{1.73_m2} Low >60 [facility] Comment on above: Non- GFR Calc Glucose measurementOrdered B y: Odalis Saravia on 07-17-2024 Glucose [Mass/Vol] 85 mg/dL 74-106 [facility] Hematocrit Auto (Bld) [Volum e fraction]Ordered By: Odalis Saravia on 07-17-2024 Hematocrit (Bld) [Volume fraction] 36.1 % Low 37-47 [facility] Hemoglobin measurementOrdere d By: Odalis Saravia on 07-17-2024 Hemoglobin (Bld) [Mass/Vol] 12.0 g/dL 12.0-15.0 [facility] Immature granulocytes/100 WB C Auto (Bld)Ordered By: Odalis Saravia on 07-17-2024 Immature granulocytes/100 WBC (Bld) 0.300 % 0.0-0.9 [facility] Comment on above: IG% - Immature Granu locytes (promyelocytes, myelocytes and metamyelocytes) > 1% indicates that a LEFT SHIFT is Present. Lymphocytes Auto (Unsp spec) [#/Vol]Ordered By: Odalis Saravia on 07-17-2024 Lymphocytes (Bld) [#/Vol] 8.58 10*3/uL High 0.83-4.51 [facility] Lymphocytes/100 WBC Auto (Un sp spec)Ordered By: Odalis Saravia on 07-17-2024 Lymphocytes/100 WBC (Bld) 53.6 % High 19-41 [facility] MCV (mean corpuscular volume ) determinationOrdered By: Odalis Saravia on 07-17-2024 MCV (RBC) [Entitic vol] 95.3 fL 81-99 [facility] Mean corpuscular hemoglobin (MCH) determinationOrdered By: Odalis Saravia on 07-17-2024 MCH (RBC) [Entitic mass] 31.7 pg 27.0-32.0 [facility] Mean corpuscular hemoglobin concentration (MCHC) determinationOrdered By: Odalis Saravia on 07-17-2024 MCHC (RBC) [Mass/Vol] 33.2 g/dL 32-36 [facility] Mean platelet volume determi nationOrdered By: Odalis Saravia on 07-17-2024 Platelet mean volume (Bld) [Entitic vol] 10.0 fL 6.2-12.0 [facility] Monocyte percentageOrdered B y: Candicelavonnelaila Guermiascarlito on 07-17-2024 Monocytes/100 WBC (Bld) 9.2 % 0-10 [facility] Neutrophil percentageOrdered By: Odalis Guermiascarlito on 07-17-2024 Neutrophils/100 WBC (Bld) 25.6 % Low 47-70 [facility] Nucleated red blood cell per centageOrdered By: Odalis Saravia on 07-17-2024 Nucleated RBC/100 WBC (Bld) [Ratio] 0 % 0-5 [facility] Platelet countOrdered By: Ila Saravia on 07-17-2024 Platelets (Bld) [#/Vol] 335 10*3/uL 150-450 [facility] Potassium measurementOrdered By: marcy Saravia on 07-17-2024 Potassium [Moles/Vol] 4.2 mmol/L 3.5-5.1 [facility] RBC Auto (Bld) [#/Vol]Ordere d By: Odalis Saravia on 07-17-2024 RBC (Bld) [#/Vol] 3.79 10*6/uL Low 4.2-5.4 [facility] Reactive lymphocyte countOrd ered By: Odalis Saravia on 07-17-2024 Reactive Lymphocytes 1+ [facility] Serum anion gap measurementO rdered By: Odalis Saravia on 07-17-2024 Anion gap [Moles/Vol] 7 mmol/L 5-15 [facility] Serum or plasma calcium fran urement (mass/volume)Ordered By: Odalis Saravia on 07-17-2024 Calcium [Mass/Vol] 9.1 mg/dL 8.5-10.1 [facility] Serum or plasma creatinine m easurement (mass/volume)Ordered By: Odalis Saravia on 07-17-2024 Creatinine [Mass/Vol] 1.17 mg/dL High 0.55-1.02 [facility] Comment on above: The validity of the calculated GFR & GFRAA in patients over 70 years has not been determined. Clinical correlation is essential. Serum or plasma urea nitroge n measurement (mass/volume)Ordered By: Odalis Saravia on 07-17-2024 Urea nitrogen [Mass/Vol] 28 mg/dL High 7-18 [facility] Sodium levelOrdered By: Candice Saravia on 07-17-2024 Sodium [Moles/Vol] 139 mmol/L 136-145 [facility] White blood cell (WBC) count Ordered By: Odalis Saravia on 07-17-2024 WBC (Bld) [#/Vol] 16.0 10*3/uL High 4.4-11.0 [facility] [id number] DOrdered By: Carlito Saravia on 06-26-2024 Vitamin D 25-Hydroxy 40.6 ng/mL [facility] Comment on above: Vitamin D 25(OH) Sta tus Range Deficiency <20 ng/mL (50nmol/L) Insufficiency 20 - 30 ng/mL (50 - 75 nmol/L) Sufficiency 30 - 100 ng/mL (75 - 250 nmol/L) Toxicity >100 ng/mL (>250 nmol/L) Bilirubin directOrdered By: Odalis Saravia on 06-26-2024 Bilirubin.direct [Mass/Vol] 0.10 mg/dL 0.00-0.30 [facility] Bilirubin, totalOrdered By: Odalis Saravia on 06-26-2024 Bilirubin [Mass/Vol] 0.40 mg/dL 0.20-1.00 [facility] Comment on above: For patients on eltr ombopag therapy, use of Dimension Belk TBIL is not recommended. Laboratory - Chemistry and C hemistry - challengeOrdered By: Odalis Saravia on 06-26-2024 AST [Catalytic activity/Vol] 30 U/L 15-37 [facility] Serum globulin measurementOr dered By: Odalis Saravia on 06-26-2024 Globulin (S) [Mass/Vol] 3.3 g/dL 2.2-4.2 [facility] Serum or plasma alanine ga otransferase (ALT) measurementOrdered By: Odalis Saravia on 06-26-2024 ALT [Catalytic activity/Vol] 17 U/L 13-56 [facility] Serum or plasma albumin fran urement (mass/volume)Ordered By: Odalis Saravia on 06-26-2024 Albumin [Mass/Vol] 3.2 g/dL 3.2-5.0 [facility] Serum or plasma alkaline karthik sphatase measurementOrdered By: Odalis Saravia on 06-26-2024 ALP [Catalytic activity/Vol] 162 U/L High 45-117 [facility] Total proteinOrdered By: Curtis Saravia on 06-26-2024 Protein [Mass/Vol] 6.5 g/dL 6.4-8.2 [facility] Vitamin B12 measurementOrder ed By: Odalis Saravia on 06-26-2024 Cobalamin (Vitamin B12) [Mass/Vol] 963 pg/mL High 211-911 [facility] Absolute neutrophil countOrd ered By: Odalis Saravia on 06-19-2024 Neutrophils (Bld) [#/Vol] 4.2 10*3/uL 2.0-7.7 [facility] Acanthocyte detectionOrdered By: Odalis Saravia on 06-19-2024 Acanthocytes RARE [facility] Atypical lymphocyte percenta geOrdered By: Odalis Saravia on 06-19-2024 Atypical Lymphocytes 2+ % [facility] Basophil percentageOrdered B y: Odalis Saravia on 06-19-2024 Basophils/100 WBC (Bld) 3.0 % High 0-1 [facility] Blood urea nitrogen (BUN)/cr eatinine ratioOrdered By: Odalis Saravia on 06-19-2024 Urea nitrogen/Creatinine [Mass ratio] 26.6 mg/mg High 10-20 [facility] Carbon dioxide measurementOr dered By: Odalis Saravia on 06-19-2024 CO2 [Moles/Vol] 25.0 mmol/L 21.0-32.0 [facility] Chloride measurementOrdered By: Odalis Saravia on 06-19-2024 Chloride [Moles/Vol] 105 mmol/L 98-107 [facility] Eosinophil percentageOrdered By: Odalis Saravia on 06-19-2024 Eosinophils/100 WBC (Bld) 10.2 % High 0-5 [facility] Erythrocyte distribution wid th (RBC) [Ratio]Ordered By: Odalis Saravia on 06-19-2024 Erythrocyte distribution width (RBC) [Entitic vol] 48.9 fL High 35.1-43.9 [facility] Erythrocyte distribution wid th ratioOrdered By: Odalis Saravia on 06-19-2024 Erythrocyte distribution width (RBC) [Ratio] 13.7 % 11.6-14.6 [facility] Estimated glomerular filtrat ion rate (GFR) AmericanOrdered By: Odalis Saravia on 06-19-2024 Estimated GFR (MDRD) Amer 61 mL/min >60 [facility] Comment on above: GFR Calc Glomerular filtration rate ( GFR) estimationOrdered By: Odalis Saravia on 06-19-2024 Estimated GFR (MDRD) Non-Af Amer 50 mL/min Low >60 [facility] Comment on above: Non- GFR Calc Glucose measurementOrdered B y: Odalis Saravia on 06-19-2024 Glucose [Mass/Vol] 81 mg/dL 74-106 [facility] Hematocrit Auto (Bld) [Volum e fraction]Ordered By: Odalis Saravia on 06-19-2024 Hematocrit (Bld) [Volume fraction] 35.4 % Low 37-47 [facility] Hemoglobin measurementOrdere d By: Odalis Saravia on 06-19-2024 Hemoglobin (Bld) [Mass/Vol] 11.3 g/dL Low 12.0-15.0 [facility] [place] LM Ql (B ld)Ordered By: Odalis Saravia on 06-19-2024 [place] Bodies 1+ [facility] Immature granulocytes/100 WB C Auto (Bld)Ordered By: Odalis Saravia on 06-19-2024 Immature granulocytes/100 WBC (Bld) 0.300 % 0.0-0.9 [facility] Comment on above: IG% - Immature Granu locytes (promyelocytes, myelocytes and metamyelocytes) > 1% indicates that a LEFT SHIFT is Present. Laboratory - Hematology and Cell countsOrdered By: Odalis Saravia on 06-19-2024 Anisocytosis Ql (Bld) 1+ [facility] Lymphocytes Auto (Unsp spec) [#/Vol]Ordered By: marcy Saravia on 06-19-2024 Lymphocytes (Bld) [#/Vol] 7.98 10*3/uL High 0.83-4.51 [facility] Lymphocytes/100 WBC Auto (Un sp spec)Ordered By: Odalis Saravia on 06-19-2024 Lymphocytes/100 WBC (Bld) 51.1 % High 19-41 [facility] MCV (mean corpuscular volume ) determinationOrdered By: Odalis Saravia on 06-19-2024 MCV (RBC) [Entitic vol] 96.7 fL 81-99 [facility] Mean corpuscular hemoglobin (MCH) determinationOrdered By: Odalis Saravia on 06-19-2024 MCH (RBC) [Entitic mass] 30.9 pg 27.0-32.0 [facility] Mean corpuscular hemoglobin concentration (MCHC) determinationOrdered By: marcy Saravia on 06-19-2024 MCHC (RBC) [Mass/Vol] 31.9 g/dL Low 32-36 [facility] Mean platelet volume determi nationOrdered By: bonnienunnlaila Saravia on 06-19-2024 Platelet mean volume (Bld) [Entitic vol] 9.9 fL 6.2-12.0 [facility] Monocyte percentageOrdered B y: Odalis Saravia on 06-19-2024 Monocytes/100 WBC (Bld) 8.8 % 0-10 [facility] Neutrophil percentageOrdered By: [place] [facility] on 06-19-2024 Neutrophils/100 WBC (Bld) 26.6 % Low 47-70 [facility] Nucleated red blood cell per centageOrdered By: bonnienunnlaila Saravia on 06-19-2024 Nucleated RBC/100 WBC (Bld) [Ratio] 0 % 0-5 [facility] Ovalocytes LM Ql (Bld)Ordere d By: Odalis Saravia on 06-19-2024 Ovalocytes 1+ [facility] Platelet countOrdered By: Ila Saravia on 06-19-2024 Platelets (Bld) [#/Vol] 414 10*3/uL 150-450 [facility] Platelets LM Ql (Bld)Ordered By: Odalis Saravia on 06-19-2024 Platelet Estimate SLT INC ADEQ [facility] Potassium measurementOrdered By: Odalis Saravia on 06-19-2024 Potassium [Moles/Vol] 4.2 mmol/L 3.5-5.1 [facility] RBC Auto (Bld) [#/Vol]Ordere d By: Odalis Saravia on 06-19-2024 RBC (Bld) [#/Vol] 3.66 10*6/uL Low 4.2-5.4 [facility] Serum anion gap measurementO rdered By: Odalis Saravia on 06-19-2024 Anion gap [Moles/Vol] 7 mmol/L 5-15 [facility] Serum or plasma calcium fran urement (mass/volume)Ordered By: Odalis Saravia on 06-19-2024 Calcium [Mass/Vol] 8.9 mg/dL 8.5-10.1 [facility] Serum or plasma creatinine m easurement (mass/volume)Ordered By: Odalis Saravia on 06-19-2024 Creatinine [Mass/Vol] 1.09 mg/dL High 0.55-1.02 [facility] Comment on above: The validity of the calculated GFR & GFRAA in patients over 70 years has not been determined. Clinical correlation is essential. Serum or plasma urea nitroge n measurement (mass/volume)Ordered By: Odalis Saravia on 06-19-2024 Urea nitrogen [Mass/Vol] 29 mg/dL High 7-18 [facility] Sodium levelOrdered By: Candice Saravia on 06-19-2024 Sodium [Moles/Vol] 137 mmol/L 136-145 [facility] Target cells LM Ql (Bld)Orde red By: Odalis Saravia on 06-19-2024 Target Cells RARE [facility] White blood cell (WBC) count Ordered By: Odalis Saravia on 06-19-2024 WBC (Bld) [#/Vol] 15.6 10*3/uL High 4.4-11.0 [facility] High density lipoprotein (HD L) measurementOrdered By: Odalis Saravia on 06-10-2024 Cholesterol in HDL [Mass/Vol] 49 mg/dL >40 [facility] Comment on above: The drugs N-Acetylcy steine and Metamizole may falsely depress this assay. Reference Range HDL <40 mg/dL Low HDL Cholesterol HDL >or= 60 mg/dL High HDL Cholesterol Low density lipoprotein (LDL ) cholesterol measurementOrdered By: Odalis Saravia on 06-10-2024 Cholesterol in LDL [Mass/Vol] 127 mg/dL 0-130 [facility] Serum or plasma cholesterol measurement (mass/volume)Ordered By: Odalis Saravia on 06-10-2024 Cholesterol [Mass/Vol] 214 mg/dL High <200 [facility] Comment on above: <200 mg/dL Desirable 200-240 mg/dL Borderline >240 mg/dL High Risk Triglycerides measurementOrd ered By: Odalis Saravia on 06-10-2024 Triglyceride [Mass/Vol] 192 mg/dL <199 [facility] Comment on above: The drugs N-Acetylcy steine and Metamizole may falsely depress this assay.Serum Triglycerides Reference Interval Normal <150 mg/dL Borderline high 150 - 199 mg/dL High 200 - 499 mg/dL Very High > or = 500 mg/dL Very low density lipoprotein (VLDL) cholesterol measurementOrdered By: Odalis Saravia on 06-10-2024 VLDL Cholesterol 38 mg/dL 5-40 [facility] Absolute neutrophil countOrd ered By: Odalis Saravia on 05-22-2024 Neutrophils (Bld) [#/Vol] 3.4 10*3/uL 2.0-7.7 [facility] Basophil percentageOrdered B y: Odalis Saravia on 05-22-2024 Basophils/100 WBC (Bld) 2.7 % High 0-1 [facility] Blood urea nitrogen (BUN)/cr eatinine ratioOrdered By: Odalis Saravia on 05-22-2024 Urea nitrogen/Creatinine [Mass ratio] 24.3 mg/mg High 10-20 [facility] Carbon dioxide measurementOr dered By: Odalis Saravia on 05-22-2024 CO2 [Moles/Vol] 27.0 mmol/L 21.0-32.0 [facility] Chloride measurementOrdered By: Odalis Saravia on 05-22-2024 Chloride [Moles/Vol] 106 mmol/L 98-107 [facility] Eosinophil percentageOrdered By: Odalis Saravia on 05-22-2024 Eosinophils/100 WBC (Bld) 6.9 % High 0-5 [facility] Erythrocyte distribution wid th (RBC) [Ratio]Ordered By: Odalis Saarvia on 05-22-2024 Erythrocyte distribution width (RBC) [Entitic vol] 49.4 fL High 35.1-43.9 [facility] Erythrocyte distribution wid th ratioOrdered By: Odalis Saravia on 05-22-2024 Erythrocyte distribution width (RBC) [Ratio] 13.9 % 11.6-14.6 [facility] Estimated glomerular filtrat ion rate (GFR) AmericanOrdered By: Odalis Saravia on 05-22-2024 Estimated GFR (MDRD) Amer 62 mL/min >60 [facility] Comment on above: GFR Calc Glomerular filtration rate ( GFR) estimationOrdered By: Odalis Saravia on 05-22-2024 Estimated GFR (MDRD) Non-Af Amer 51 mL/min Low >60 [facility] Comment on above: Non- GFR Calc Glucose measurementOrdered B y: Odalis Saravia on 05-22-2024 Glucose [Mass/Vol] 82 mg/dL 74-106 [facility] Hematocrit Auto (Bld) [Volum e fraction]Ordered By: Odalis Saravia on 05-22-2024 Hematocrit (Bld) [Volume fraction] 37.0 % 37-47 [facility] Hemoglobin measurementOrdere d By: Odalis Saravia on 05-22-2024 Hemoglobin (Bld) [Mass/Vol] 11.9 g/dL Low 12.0-15.0 [facility] Immature granulocytes/100 WB C Auto (Bld)Ordered By: Odalis Saravia on 05-22-2024 Immature granulocytes/100 WBC (Bld) 0.300 % 0.0-0.9 [facility] Comment on above: IG% - Immature Granu locytes (promyelocytes, myelocytes and metamyelocytes) > 1% indicates that a LEFT SHIFT is Present. Lymphocytes Auto (Unsp spec) [#/Vol]Ordered By: marcy Saravia on 05-22-2024 Lymphocytes (Bld) [#/Vol] 7.97 10*3/uL High 0.83-4.51 [facility] Lymphocytes/100 WBC Auto (Un sp spec)Ordered By: Odalis Saravia on 05-22-2024 Lymphocytes/100 WBC (Bld) 56.5 % High 19-41 [facility] MCV (mean corpuscular volume ) determinationOrdered By: Odalis Saravia on 05-22-2024 MCV (RBC) [Entitic vol] 95.9 fL 81-99 [facility] Mean corpuscular hemoglobin (MCH) determinationOrdered By: Odalis Saravia on 05-22-2024 MCH (RBC) [Entitic mass] 30.8 pg 27.0-32.0 [facility] Mean corpuscular hemoglobin concentration (MCHC) determinationOrdered By: Odalis Saravia on 05-22-2024 MCHC (RBC) [Mass/Vol] 32.2 g/dL 32-36 [facility] Mean platelet volume determi nationOrdered By: marcy Saravia on 05-22-2024 Platelet mean volume (Bld) [Entitic vol] 10.3 fL 6.2-12.0 [facility] Monocyte percentageOrdered B y: Odalis Saravia on 05-22-2024 Monocytes/100 WBC (Bld) 9.8 % 0-10 [facility] Neutrophil percentageOrdered By: Odalis Saravia on 05-22-2024 Neutrophils/100 WBC (Bld) 23.8 % Low 47-70 [facility] Nucleated red blood cell per centageOrdered By: Odalis Saravia on 05-22-2024 Nucleated RBC/100 WBC (Bld) [Ratio] 0 % 0-5 [facility] Platelet countOrdered By: Ila Saravia on 05-22-2024 Platelets (Bld) [#/Vol] 366 10*3/uL 150-450 [facility] Potassium measurementOrdered By: Odalis Saravia on 05-22-2024 Potassium [Moles/Vol] 4.5 mmol/L 3.5-5.1 [facility] Comment on above: Slight Hemolysis, Re sult may be falsely increased. RBC Auto (Bld) [#/Vol]Ordere d By: Odalis Saravia on 05-22-2024 RBC (Bld) [#/Vol] 3.86 10*6/uL Low 4.2-5.4 [facility] Reactive lymphocyte countOrd ered By: Odalis Saravia on 05-22-2024 Reactive Lymphocytes 1+ [facility] Serum anion gap measurementO rdered By: Odalis Saravia on 05-22-2024 Anion gap [Moles/Vol] 5 mmol/L 5-15 [facility] Serum or plasma calcium fran urement (mass/volume)Ordered By: Odalis Saravia on 05-22-2024 Calcium [Mass/Vol] 9.2 mg/dL 8.5-10.1 [facility] Serum or plasma creatinine m easurement (mass/volume)Ordered By: Odalis Saravia on 05-22-2024 Creatinine [Mass/Vol] 1.07 mg/dL High 0.55-1.02 [facility] Comment on above: The validity of the calculated GFR & GFRAA in patients over 70 years has not been determined. Clinical correlation is essential. Serum or plasma urea nitroge n measurement (mass/volume)Ordered By: Odalis Saravia on 05-22-2024 Urea nitrogen [Mass/Vol] 26 mg/dL High 7-18 [facility] Sodium levelOrdered By: Candice Saravia on 05-22-2024 Sodium [Moles/Vol] 138 mmol/L 136-145 [facility] White blood cell (WBC) count Ordered By: Odalis Saravia on 05-22-2024 WBC (Bld) [#/Vol] 14.1 10*3/uL High 4.4-11.0 [facility] Basic Metabolic Profile (BMP )on 05-14-2024 BUN/CRE 22.9 RATIO High 10-20 [facility] Comment on above: Performed By: #### L 500.2500, L100.0100 #### [facility] [address] [place], [address] CA,Total 9.3 mg/dL Normal 8.5-10.1 [facility] Comment on above: Performed By: #### L 500.2500, L100.0100 #### [facility] [address] [place], [address] Chloride [Moles/Vol] 107 mmol/L Normal 98-107 [facility] Comment on above: Performed By: #### L 500.2500, L100.0100 #### [facility] [address] [place], [address] CO2 [Moles/Vol] 25.0 mmol/L Normal 21.0-32.0 [facility] Comment on above: Performed By: #### L 500.2500, L100.0100 #### [facility] [address] [place], [address] Creatinine [Mass/Vol] 1.18 mg/dL High 0.55-1.02 [facility] Comment on above: Result Comment: The validity of the calculated GFR GFRAA in patients over 70 years has not been determined. Clinical correlation is essential. Performed By: #### L 500.2500, L100.0100 #### [facility] [address] [place], [address] ECRCL 24.13 ml/min Normal [facility] Comment on above: Performed By: #### L 500.2500, L100.0100 #### [facility] [address] [place], [address] EST GFR - AA 56 mL/min Low >60 [facility] Comment on above: Result Comment: Afri can Ghanaian GFR Calc Performed By: #### L 500.2500, L100.0100 #### [facility] [address] [place], [address] GAP 5 Normal 5-15 [facility] Comment on above: Performed By: #### L 500.2500, L100.0100 #### [facility] [address] [place], [address] GFR/1.73 sq M.predicted among non-blacks MDRD (S/P/Bld) [Vol rate/Area] 46 mL/min/{1.73_m2} Low >60 [facility] Comment on above: Result Comment: Non- GFR Calc Performed By: #### L 500.2500, L100.0100 #### [facility] [address] [place], [address] Glucose [Mass/Vol] 96 mg/dL Normal 74-106 [facility] Comment on above: Performed By: #### L 500.2500, L100.0100 #### [facility] [address] [place], [address] Potassium [Moles/Vol] 4.6 mmol/L Normal 3.5-5.1 [facility] Comment on above: Result Comment: Mode rate Hemolysis, Result may be falsely increased. Performed By: #### L 500.2500, L100.0100 #### [facility] [address] [place], [address] Sodium [Moles/Vol] 136 mmol/L Normal 136-145 [facility] Comment on above: Performed By: #### L 500.2500, L100.0100 #### [facility] [address] [place], [address] Urea nitrogen [Mass/Vol] 27 mg/dL High 7- [facility] Comment on above: Performed By: #### L 500.2500, L100.0100 #### [facility] [address] [place], [address] Brain/Head without Contrasto n 05-14-2024 Brain/Head without Contrast [facility] Imaging Services [address] [place] [address] Brain/Head without Contrast MR#: [id number] Acct: [id number] Name: KAYLENE HAYNES Rep #: [id number] : 1935 F 88 From: Dheeraj Castillo MD PCP: Dr. Howard Zimmerman MD Status: [facility] Study: Brain/Head without Contrast Date of Exam: 04/19 01/08 Exam# [id number] Ordering Dr: Joel Mccarthy DO [id number] EXAM: CT HEAD WITHOUT INTRAVENOUS CONTRAST CLINICAL [...] Joel Mccarthy DO; Dr. Howard Zimmerman MD Msw: Signed Normal [facility] CBC W/Diff, Automatedon 11- BITE CELL RARE Normal [facility] Comment on above: Performed By: #### L 500.2500, L100.0100 #### [facility] [address] [place], [address] SCHISTOCYTES RARE Normal [facility] Comment on above: Performed By: #### L 500.2500, L100.0100 #### [facility] [address] [place], [address] TARGET CELLS RARE Normal [facility] Comment on above: Performed By: #### L 500.2500, L100.0100 #### [facility] [address] [place], [address] ACANTHOCYTE 1+ Normal [facility] Comment on above: Performed By: #### L 500.2500, L100.0100 #### [facility] [address] [place], [address] KRISTINE CELLS 1+ Normal [facility] Comment on above: Performed By: #### L 500.2500, L100.0100 #### [facility] [address] [place], [address] PLT EST ADEQUATE Normal ADEQ [facility] Comment on above: Performed By: #### L 500.2500, L100.0100 #### [facility] [address] [place], [address] ATYPICAL LYMPH 1+ Normal [facility] Comment on above: Performed By: #### L 500.2500, L100.0100 #### [facility] [address] [place], [address] Emergency Department Summary on 05-14-2024 Emergency Department Summary [facility] Medical Records Department [address] [place] [address] Emergency Department Summary 05/14/24 MR#: [id number] Acct: [id number] Name: KAYLENE HAYNES Rep #: [id number] : 1935 88 From: Joel Mccarthy DO [...] of Parkinson's disease. Patient was found by [facility] staff with abnormal head movements. Staff reports patient was able to stop voluntarily. Staff also reports patient had recent unwitnessed fall. Patient was referred to the emergency department for concern for intracranial bleeding. Patient states she does not know why she is here. Patient denies any tremors. Patient denies any chest pain or shortness of breath. Patient admits to a mild sore throat. [facility] Medical History Dementia in other diseases classified [...] no JVD (more content not included)... Normal [facility] Urinalysis, Completeon 05-14 EPI,SQUAMOUS 0-5 SEEN Normal -10 [facility] Comment on above: Order Comment: CLEAN CATCH Performed By: #### L 400.0001 #### [facility] [address] [place], [address] WBC 0-5 SEEN Normal 0-5 [facility] Comment on above: Order Comment: CLEAN CATCH Performed By: #### L 400.0001 #### [facility] [address] [facility] [address] BACTERIA 0 SEEN Normal None Seen [facility] Comment on above: Order Comment: CLEAN CATCH Performed By: #### L 400.0001 #### [facility] [address] [place], [address] Mucus Ql (Urine sed) 0 SEEN Normal [facility] Comment on above: Order Comment: CLEAN CATCH Performed By: #### L 400.0001 #### [facility] [address] [place], [address] RBC 0 SEEN Normal 0-5 [facility] Comment on above: Order Comment: CLEAN CATCH Performed By: #### L 400.0001 #### [facility] [address] [place], [address] OV 04-21-2024 CNOV Office Visit (NRMDN) KAYLENE HAYNES ([id number]) 1935 F Date Time Provider Department 04/21/24 11:00 AM [facility] today, we recorded the following information about you: Weight 44.2 kg Selvin Felder MD 04/21/2024 7:56 PM Signed [facility] - FOLLOW UP EVALUATION Howard Zimmerman MD [address] [facility] [address] [facility] [address] I had the pleasure of seeing Ms. 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 Acetaminophen 500 mg cap Take by mouth. 1000 TID for pain (more content not included)... Normal [facility]AY[facility] ([id number]) 1935 F Date Time Provider Department 04/21/24 [facility] FELDER [facility] During your visit today, we recorded [...] by MARIA EUGENIA VIRGEN on 04/21/24 Normal [facility] Absolute lymphocyte countOrd ered By: Odalis Saravia on 10-17-2023 Lymphocytes Auto (Unsp spec) [#/Vol] 6.70 10*3/uL 0.83-4.51 [facility] Automated lymphocyte count a s percentage of total leukocytesOrdered By: Odalis Saravia on 10-17-2023 Lymphocytes/100 WBC Auto (Unsp spec) 46.1 % 19-41 [facility] Basophil percentageOrdered B y: Odalis Saravia on 10-17-2023 Basophil percentage 10.7 g/dL 12.0-15.0 [facility] Basophil percentage 91 mg/dL 74-106 [facility] Basophil percentage 140 mmol/L 136-145 [facility] Basophil percentage 4.2 mmol/L 3.5-5.1 [facility] Basophil percentage 108 mmol/L 98-107 [facility] Basophils (Bld) [#/Vol] 14.5 10*3/uL 4.4-11.0 [facility] Basophils (Bld) [#/Vol] 5.4 10*3/uL 2.0-7.7 [facility] Basophils/100 WBC (Bld) 37.3 % 47-70 [facility] Basophils/100 WBC (Bld) 10.3 % 0-10 [facility] Basophils/100 WBC (Bld) 3.5 % 0-5 [facility] Basophils/100 WBC (Bld) 2.5 % 0-1 [facility] Chloride [Moles/Vol] 108 mmol/L 98-107 [facility] Eosinophils/100 WBC (Bld) 3.5 % 0-5 [facility] Glucose [Mass/Vol] 91 mg/dL 74-106 [facility] Hemoglobin (Bld) [Mass/Vol] 10.7 g/dL 12.0-15.0 [facility] Monocytes/100 WBC (Bld) 10.3 % 0-10 [facility] Neutrophils (Bld) [#/Vol] 5.4 10*3/uL 2.0-7.7 [facility] Neutrophils/100 WBC (Bld) 37.3 % 47-70 [facility] Potassium [Moles/Vol] 4.2 mmol/L 3.5-5.1 [facility] Sodium [Moles/Vol] 140 mmol/L 136-145 [facility] WBC (Bld) [#/Vol] 14.5 10*3/uL 4.4-11.0 [facility] Blood platelet adequacy dete ction by light microscopyOrdered By: Odalis Saravia on 10-17-2023 Platelets LM Ql (Bld) ADEQUATE ADEQ [facility] Determination of erythrocyte mean corpuscular volume (MCV)Ordered By: Odalis Saravia on 10-17-2023 MCV (RBC) [Entitic vol] 93.8 fL 81-99 [facility] Erythrocyte distribution wid th ratioOrdered By: Odalis Saravia on 10-17-2023 Erythrocyte distribution width (RBC) [Ratio] 14.1 % 11.6-14.6 [facility] Erythrocyte distribution wid th standard deviationOrdered By: Odalis Saravia on 10-17-2023 Erythrocyte distribution width (RBC) [Entitic vol] 49.1 fL 35.1-43.9 [facility] Hematocrit Auto (Bld) [Volum e fraction]Ordered By: Odalis Saravia on 10-17-2023 Hematocrit (Bld) [Volume fraction] 33.4 % 37-47 [facility] Immature granulocytes/100 WB C Auto (Bld)Ordered By: Odalis Saravia on 10-17-2023 Immature granulocytes/100 WBC (Bld) 0.300 % 0.0-0.9 [facility] Comment on above: IG% - Immature Granu locytes (promyelocytes, myelocytes and metamyelocytes) > 1% indicates that a LEFT SHIFT is Present. Laboratory - Chemistry and C hemistry - challengeOrdered By: Odalis Saravia on 10-17-2023 CO2 [Moles/Vol] 31.0 mmol/L 21.0-32.0 [facility] Urea nitrogen/Creatinine [Mass ratio] 21.9 mg/mg 10-20 [facility] - Hematology and Cell countsOrdered By: Odalis Saravia on 10-17-2023 MCH (RBC) [Entitic mass] 30.1 pg 27.0-32.0 [facility] MCHC (RBC) [Mass/Vol] 32.0 g/dL 32-36 [facility] Nucleated RBC/100 WBC (Bld) [Ratio] 0 % 0-5 [facility] Platelet mean volume (Bld) [Entitic vol] 12.0 fL 6.2-12.0 [facility] No Panel InformationOrdered By: Odalis Saravia on 10-17-2023 Estimated GFR (MDRD) Amer 58 mL/min >60 [facility] Comment on above: GFR Calc Estimated GFR (MDRD) Non-Af Amer 48 mL/min >60 [facility] Comment on above: Non- GFR Calc Platelet Count See comment 150-450 [facility] Comment on above: Please note: For thi s sample, a platelet estimate is provided rather than a platelet count due to platelet clumping. Other parameters associated with this sample are not affected by platelet clumping. If a more accurate platelet count is required, a redraw of the patient will be necessary. 30.1 pg 27.0-32.0 [facility] 32.0 g/dL 32-36 [facility] See comment 150-450 [facility] 12.0 fl 6.2-12.0 [facility] 0 % 0-5 [facility] 48 mL/min >60 [facility] 58 mL/min >60 [facility] 21.9 RATIO 10-20 [facility] 31.0 mmol/L 21.0-32.0 [facility] RBC Auto (Bld) [#/Vol]Ordere d By: Odalis Saravia on 10-17-2023 RBC (Bld) [#/Vol] 3.56 10*6/uL 4.2-5.4 [facility] Serum or plasma calcium fran urement (mass/volume)Ordered By: Odalis Saravia on 10-17-2023 Calcium [Mass/Vol] 8.7 mg/dL 8.5-10.1 [facility] Serum or plasma creatinine m easurement (mass/volume)Ordered By: Odalis Saravia on 10-17-2023 Creatinine [Mass/Vol] 1.14 mg/dL 0.55-1.02 [facility] Comment on above: The validity of the calculated GFR & GFRAA in patients over 70 years has not been determined. Clinical correlation is essential. Serum or plasma urea nitroge n measurement (mass/volume)Ordered By: Odalis Saravia on 10-17-2023 Urea nitrogen [Mass/Vol] 25 mg/dL 7-18 [facility] Thin prep Papanicolaou smear with manual screeningOrdered By: Odalis Saravia on 10-17-2023 Thin prep Papanicolaou smear with manual screening 1 5-15 [facility] Absolute lymphocyte countOrd ered By: Odalis Saravia on 10-05-2023 Lymphocytes Auto (Unsp spec) [#/Vol] 5.57 10*3/uL 0.83-4.51 [facility] Automated lymphocyte count a s percentage of total leukocytesOrdered By: Odalis Saravia on 10-05-2023 Lymphocytes/100 WBC Auto (Unsp spec) 45.8 % 19-41 [facility] Basophil percentageOrdered B y: Odalis Saravia on 10-05-2023 Basophil percentage 10.9 g/dL 12.0-15.0 [facility] Basophil percentage 90 mg/dL 74-106 [facility] Basophil percentage 6.1 g/dL 6.4-8.2 [facility] Basophil percentage 0.30 mg/dL 0.20-1.00 [facility] Basophil percentage 130 mg/dL <200 [facility] Basophil percentage 139 mg/dL <199 [facility] Basophil percentage 140 mmol/L 136-145 [facility] Basophil percentage 4.1 mmol/L 3.5-5.1 [facility] Basophil percentage 104 mmol/L 98-107 [facility] Basophils (Bld) [#/Vol] 12.2 10*3/uL 4.4-11.0 [facility] Basophils (Bld) [#/Vol] 4.4 10*3/uL 2.0-7.7 [facility] Basophils/100 WBC (Bld) 36.4 % 47-70 [facility] Basophils/100 WBC (Bld) 11.1 % 0-10 [facility] Basophils/100 WBC (Bld) 4.0 % 0-5 [facility] Basophils/100 WBC (Bld) 2.5 % 0-1 [facility] Bilirubin [Mass/Vol] 0.30 mg/dL 0.20-1.00 [facility] Comment on above: For patients on eltr ombopag therapy, use of Dimension Belk TBIL is not recommended. Chloride [Moles/Vol] 104 mmol/L 98-107 [facility] Cholesterol [Mass/Vol] 130 mg/dL <200 [facility] Comment on above: <200 mg/dL Desirable 200-240 mg/dL Borderline >240 mg/dL High Risk Eosinophils/100 WBC (Bld) 4.0 % 0-5 [facility] Glucose [Mass/Vol] 90 mg/dL 74-106 [facility] Hemoglobin (Bld) [Mass/Vol] 10.9 g/dL 12.0-15.0 [facility] Monocytes/100 WBC (Bld) 11.1 % 0-10 [facility] Neutrophils (Bld) [#/Vol] 4.4 10*3/uL 2.0-7.7 [facility] Neutrophils/100 WBC (Bld) 36.4 % 47-70 [facility] Potassium [Moles/Vol] 4.1 mmol/L 3.5-5.1 [facility] Protein [Mass/Vol] 6.1 g/dL 6.4-8.2 [facility] Sodium [Moles/Vol] 140 mmol/L 136-145 [facility] Triglyceride [Mass/Vol] 139 mg/dL <199 [facility] Comment on above: The drugs N-Acetylcy steine and Metamizole may falsely depress this assay.Serum Triglycerides Reference Interval Normal <150 mg/dL Borderline high 150 - 199 mg/dL High 200 - 499 mg/dL Very High > or = 500 mg/dL WBC (Bld) [#/Vol] 12.2 10*3/uL 4.4-11.0 [facility] Blood manual differential co mment interpretation (narrative result)Ordered By: Odalis Saravia on 10-05-2023 Manual differential comment Porter (Bld) [Interp] SCANNED [facility] Determination of erythrocyte mean corpuscular volume (MCV)Ordered By: Odalis Saravia on 10-05-2023 MCV (RBC) [Entitic vol] 94.2 fL 81-99 [facility] Erythrocyte distribution wid th ratioOrdered By: Odalis Saravia on 10-05-2023 Erythrocyte distribution width (RBC) [Ratio] 13.6 % 11.6-14.6 [facility] Erythrocyte distribution wid th standard deviationOrdered By: [place] [facility] on 10-05-2023 Erythrocyte distribution width (RBC) [Entitic vol] 46.8 fL 35.1-43.9 [facility] Hematocrit Auto (Bld) [Volum e fraction]Ordered By: bonnienunnlaila Saravia on 10-05-2023 Hematocrit (Bld) [Volume fraction] 33.8 % 37-47 [facility] Immature granulocytes/100 WB C Auto (Bld)Ordered By: [facility] on 10-05-2023 Immature granulocytes/100 WBC (Bld) 0.200 % 0.0-0.9 [facility] Comment on above: IG% - Immature Granu locytes (promyelocytes, myelocytes and metamyelocytes) > 1% indicates that a LEFT SHIFT is Present. Laboratory - Chemistry and C hemistry - challengeOrdered By: [facility] on 10-05-2023 Albumin/Globulin [Mass ratio] 1.0 {ratio} 0.9-2.4 [facility] ALP [Catalytic activity/Vol] 97 U/L 45-117 [facility] ALT [Catalytic activity/Vol] 14 U/L 13-56 [facility] Cholesterol in HDL [Mass/Vol] 47 mg/dL >40 [facility] Comment on above: The drugs N-Acetylcy steine and Metamizole may falsely depress this assay. Reference Range HDL <40 mg/dL Low HDL Cholesterol HDL >or= 60 mg/dL High HDL Cholesterol Cholesterol in LDL [Mass/Vol] 55 mg/dL 0-130 [facility] CO2 [Moles/Vol] 30.0 mmol/L 21.0-32.0 [facility] Globulin (S) [Mass/Vol] 3.1 g/dL 2.2-4.2 [facility] Urea nitrogen/Creatinine [Mass ratio] 28.2 mg/mg 10-20 [facility] - Hematology and Cell countsOrdered By: [place] [facility] on 10-05-2023 MCH (RBC) [Entitic mass] 30.4 pg 27.0-32.0 [facility] MCHC (RBC) [Mass/Vol] 32.2 g/dL 32-36 [facility] Nucleated RBC/100 WBC (Bld) [Ratio] 0 % 0-5 [facility] Platelet mean volume (Bld) [Entitic vol] 10.6 fL 6.2-12.0 [facility] Platelets (Bld) [#/Vol] 346 10*3/uL 150-450 [facility] No Panel InformationOrdered By: Odalis Saravia on 10-05-2023 Estimated GFR (MDRD) Amer 65 mL/min >60 [facility] Comment on above: GFR Calc Estimated GFR (MDRD) Non-Af Amer 54 mL/min >60 [facility] Comment on above: Non- GFR Calc Reactive Lymphocytes 1+ [facility] Vitamin B12 Level > 2000 pg/mL [facility] Vitamin D 25-Hydroxy 60.0 ng/mL [facility] Comment on above: Vitamin D 25(OH) Sta tus Range Deficiency <20 ng/mL (50nmol/L) Insufficiency 20 - 30 ng/mL (50 - 75 nmol/L) Sufficiency 30 - 100 ng/mL (75 - 250 nmol/L) Toxicity >100 ng/mL (>250 nmol/L) VLDL Cholesterol 28 mg/dL 5-40 [facility] 30.4 pg 27.0-32.0 [facility] 32.2 g/dL 32-36 [facility] 346 K/mm3 150-450 [facility] 10.6 fl 6.2-12.0 [facility] 0 % 0-5 [facility] 1+ [facility] 54 mL/min >60 [facility] 65 mL/min >60 [facility] 28.2 RATIO 10-20 [facility] 3.1 g/dL 2.2-4.2 [facility] 1.0 RATIO 0.9-2.4 [facility] 97 U/L 45-117 [facility] 14 U/L 13-56 [facility] 30.0 mmol/L 21.0-32.0 [facility] 47 mg/dL >40 [facility] 55 mg/dL 0-130 [facility] 28 mg/dL 5-40 [facility] > 2000 pg/mL [facility] 60.0 ng/mL [facility] RBC Auto (Bld) [#/Vol]Ordere d By: Odalis Saravia on 10-05-2023 RBC (Bld) [#/Vol] 3.59 10*6/uL 4.2-5.4 [facility] Serum or plasma calcium fran urement (mass/volume)Ordered By: Odalis Saravia on 10-05-2023 Calcium [Mass/Vol] 8.7 mg/dL 8.5-10.1 [facility] Serum or plasma creatinine m easurement (mass/volume)Ordered By: Odalis Saravia on 10-05-2023 Creatinine [Mass/Vol] 1.03 mg/dL 0.55-1.02 [facility] Comment on above: The validity of the calculated GFR & GFRAA in patients over 70 years has not been determined. Clinical correlation is essential. Serum or plasma urea nitroge n measurement (mass/volume)Ordered By: Odalis Saravia on 10-05-2023 Urea nitrogen [Mass/Vol] 29 mg/dL 7-18 [facility] Thin prep Papanicolaou smear with manual screeningOrdered By: Odalis Saravia on 10-05-2023 Thin prep Papanicolaou smear with manual screening 3.0 g/dL 3.2-5.0 [facility] Thin prep Papanicolaou smear with manual screening 38 U/L 15-37 [facility] Thin prep Papanicolaou smear with manual screening 6 5-15 [facility] Absolute lymphocyte countOrd ered By: Howard Zimmerman on 09-29-2023 Lymphocytes Auto (Unsp spec) [#/Vol] 7.05 10*3/uL 0.83-4.51 [facility] Automated lymphocyte count a s percentage of total leukocytesOrdered By: Howard Zimmerman on 09-29-2023 Lymphocytes/100 WBC Auto (Unsp spec) 42.7 % 19-41 [facility] Basophil percentageOrdered B y: Howard Zimmerman on 09-29-2023 Basophil percentage 12.6 g/dL 12.0-15.0 [facility] Basophils (Bld) [#/Vol] 16.5 10*3/uL 4.4-11.0 [facility] Basophils (Bld) [#/Vol] 7.0 10*3/uL 2.0-7.7 [facility] Basophils/100 WBC (Bld) 2.5 % 0-1 [facility] Basophils/100 WBC (Bld) 42.3 % 47-70 [facility] Basophils/100 WBC (Bld) 9.2 % 0-10 [facility] Basophils/100 WBC (Bld) 2.8 % 0-5 [facility] Eosinophils/100 WBC (Bld) 2.8 % 0-5 [facility] Hemoglobin (Bld) [Mass/Vol] 12.6 g/dL 12.0-15.0 [facility] Monocytes/100 WBC (Bld) 9.2 % 0-10 [facility] Neutrophils (Bld) [#/Vol] 7.0 10*3/uL 2.0-7.7 [facility] Neutrophils/100 WBC (Bld) 42.3 % 47-70 [facility] WBC (Bld) [#/Vol] 16.5 10*3/uL 4.4-11.0 [facility] Blood manual differential co mment interpretation (narrative result)Ordered By: Howard Zimmerman on 09-29-2023 Manual differential comment Porter (Bld) [Interp] SCANNED [facility] Determination of erythrocyte mean corpuscular volume (MCV)Ordered By: Howard Zimmerman on 09-29-2023 MCV (RBC) [Entitic vol] 94.0 fL 81-99 [facility] Erythrocyte distribution wid th ratioOrdered By: Howard Zimmerman on 09-29-2023 Erythrocyte distribution width (RBC) [Ratio] 13.5 % 11.6-14.6 [facility] Erythrocyte distribution wid th standard deviationOrdered By: Howard Zimmerman on 09-29-2023 Erythrocyte distribution width (RBC) [Entitic vol] 46.6 fL 35.1-43.9 [facility] Hematocrit Auto (Bld) [Volum e fraction]Ordered By: Howard Zimmerman on 09-29-2023 Hematocrit (Bld) [Volume fraction] 40.4 % 37-47 [facility] Immature granulocytes/100 WB C Auto (Bld)Ordered By: Howard Zimmerman on 09-29-2023 Immature granulocytes/100 WBC (Bld) 0.500 % 0.0-0.9 [facility] Comment on above: IG% - Immature Granu locytes (promyelocytes, myelocytes and metamyelocytes) > 1% indicates that a LEFT SHIFT is Present. Laboratory - Hematology and Cell countsOrdered By: Howard Zimmerman on 09-29-2023 MCH (RBC) [Entitic mass] 29.3 pg 27.0-32.0 [facility] MCHC (RBC) [Mass/Vol] 31.2 g/dL 32-36 [facility] Nucleated RBC/100 WBC (Bld) [Ratio] 0 % 0-5 [facility] Platelet mean volume (Bld) [Entitic vol] 10.0 fL 6.2-12.0 [facility] Platelets (Bld) [#/Vol] 410 10*3/uL 150-450 [facility] No Panel InformationOrdered By: Howard Zimmerman on 09-29-2023 Reactive Lymphocytes 1+ [facility] 29.3 pg 27.0-32.0 [facility] 31.2 g/dL 32-36 [facility] 410 K/mm3 150-450 [facility] 10.0 fl 6.2-12.0 [facility] 0 % 0-5 [facility] 1+ [facility] RBC Auto (Bld) [#/Vol]Ordere d By: Howard Zimmerman on 09-29-2023 RBC (Bld) [#/Vol] 4.30 10*6/uL 4.2-5.4 [facility] Review by pathologistOrdered By: Howard Zimmerman on 09-29-2023 Pathologist review Porter (Unsp spec) [Interp] Reviewed [facility] Comment on above: Previous reported re sult: Heide mckenna Edited by: IVAN on 10/01/23:1345Leukocytosis.Clinical correlation necessary.Nilton Flaherty M.D. 10/01/23 AMENDED REPORT 10/01/23 1345 PATH REV previously reported as: Heide mckenna Basophil percentageOrdered B y: Howard Zimmerman on 09-28-2023 Basophil percentage 83 mg/dL 74-106 [facility] Basophil percentage 138 mmol/L 136-145 [facility] Basophil percentage 4.3 mmol/L 3.5-5.1 [facility] Basophil percentage 105 mmol/L 98-107 [facility] Chloride [Moles/Vol] 105 mmol/L 98-107 [facility] Glucose [Mass/Vol] 83 mg/dL 74-106 [facility] Potassium [Moles/Vol] 4.3 mmol/L 3.5-5.1 [facility] Sodium [Moles/Vol] 138 mmol/L 136-145 [facility] Laboratory - Chemistry and C hemistry - challengeOrdered By: Howard Zimmerman on 09-28-2023 CO2 [Moles/Vol] 31.0 mmol/L 21.0-32.0 [facility] Urea nitrogen/Creatinine [Mass ratio] 27.0 mg/mg 10- [facility] No Panel InformationOrdered By: Howard Zimmerman on 09-28-2023 Estimated Creatinine Clearance Calc 21.31 ml/min [facility] Estimated GFR (MDRD) Amer 54 mL/min >60 [facility] Comment on above: GFR Calc Estimated GFR (MDRD) Non-Af Amer 44 mL/min >60 [facility] Comment on above: Non- GFR Calc 44 mL/min >60 [facility] 54 mL/min >60 [facility] 21.31 ml/min [facility] 27.0 RATIO 04-06 [facility] 31.0 mmol/L 21.0-32.0 [facility] Serum or plasma calcium fran urement (mass/volume)Ordered By: Howard Zimmerman on 09-28-2023 Calcium [Mass/Vol] 8.7 mg/dL 8.5-10.1 [facility] Serum or plasma creatinine m easurement (mass/volume)Ordered By: Howard Zimmerman on 09-28-2023 Creatinine [Mass/Vol] 1.22 mg/dL 0.55-1.02 [facility] Comment on above: The validity of the calculated GFR & GFRAA in patients over 70 years has not been determined. Clinical correlation is essential. Serum or plasma urea nitroge n measurement (mass/volume)Ordered By: Howard Zimmerman on 09-28-2023 Urea nitrogen [Mass/Vol] 33 mg/dL 7-18 [facility] Thin prep Papanicolaou smear with manual screeningOrdered By: Howard Zimmerman on 09-28-2023 Thin prep Papanicolaou smear with manual screening 2 5-15 [facility] Absolute lymphocyte countOrd ered By: Maame Pinon on 09-11-2023 Lymphocytes Auto (Unsp spec) [#/Vol] 3.47 10*3/uL 0.83-4.51 [facility] Automated lymphocyte count a s percentage of total leukocytesOrdered By: Maame Pinon on 09-11-2023 Lymphocytes/100 WBC Auto (Unsp spec) 38.3 % 19-41 [facility] Basophil percentageOrdered B y: Maame Pinon on 09-11-2023 Basophil percentage 13.1 g/dL 12.0-15.0 [facility] Basophils (Bld) [#/Vol] 9.1 10*3/uL 4.4-11.0 [facility] Basophils (Bld) [#/Vol] 4.6 10*3/uL 2.0-7.7 [facility] Basophils/100 WBC (Bld) 0.3 % 0-1 [facility] Basophils/100 WBC (Bld) 51.1 % 47-70 [facility] Basophils/100 WBC (Bld) 9.0 % 0-10 [facility] Basophils/100 WBC (Bld) 1.0 % 0-5 [facility] Eosinophils/100 WBC (Bld) 1.0 % 0-5 [facility] Hemoglobin (Bld) [Mass/Vol] 13.1 g/dL 12.0-15.0 [facility] Monocytes/100 WBC (Bld) 9.0 % 0-10 [facility] Neutrophils (Bld) [#/Vol] 4.6 10*3/uL 2.0-7.7 [facility] Neutrophils/100 WBC (Bld) 51.1 % 47-70 [facility] WBC (Bld) [#/Vol] 9.1 10*3/uL 4.4-11.0 [facility] Determination of erythrocyte mean corpuscular volume (MCV)Ordered By: Maame Pinon on 09-11-2023 MCV (RBC) [Entitic vol] 92.1 fL 81-99 [facility] Erythrocyte distribution wid th ratioOrdered By: Maame Pinon on 09-11-2023 Erythrocyte distribution width (RBC) [Ratio] 12.2 % 11.6-14.6 [facility] Erythrocyte distribution wid th standard deviationOrdered By: Maame Pinon on 09-11-2023 Erythrocyte distribution width (RBC) [Entitic vol] 41.3 fL 35.1-43.9 [facility] Hematocrit Auto (Bld) [Volum e fraction]Ordered By: Maame Pinon on 09-11-2023 Hematocrit (Bld) [Volume fraction] 38.6 % 37-47 [facility] Immature granulocytes/100 WB C Auto (Bld)Ordered By: Maame Pinon on 09-11-2023 Immature granulocytes/100 WBC (Bld) 0.300 % 0.0-0.9 [facility] Comment on above: IG% - Immature Granu locytes (promyelocytes, myelocytes and metamyelocytes) > 1% indicates that a LEFT SHIFT is Present. Laboratory - Hematology and Cell countsOrdered By: Maame Pinon on 09-11-2023 MCH (RBC) [Entitic mass] 31.3 pg 27.0-32.0 [facility] MCHC (RBC) [Mass/Vol] 33.9 g/dL 32-36 [facility] Comment on above: Delta: 31.8 on 09/09-0555 Nucleated RBC/100 WBC (Bld) [Ratio] 0 % 0-5 [facility] Platelet mean volume (Bld) [Entitic vol] 9.6 fL 6.2-12.0 [facility] Platelets (Bld) [#/Vol] 297 10*3/uL 150-450 [facility] No Panel InformationOrdered By: Maame Pinon on 09-11-2023 31.3 pg 27.0-32.0 [facility] 33.9 g/dL 32-36 [facility] 297 K/mm3 150-450 [facility] 9.6 fl 6.2-12.0 [facility] 0 % 0-5 [facility] RBC Auto (Bld) [#/Vol]Ordere d By: Maame Pinon on 09-11-2023 RBC (Bld) [#/Vol] 4.19 10*6/uL 4.2-5.4 [facility] Basophil percentageOrdered B y: Maame Pinon on 09-10-2023 Basophil percentage 3.1 mg/dL 2.5-4.9 [facility] Basophil percentage 95 mg/dL 74-106 [facility] Basophil percentage 6.0 g/dL 6.4-8.2 [facility] Basophil percentage 0.50 mg/dL 0.20-1.00 [facility] Basophil percentage 140 mmol/L 136-145 [facility] Basophil percentage 3.8 mmol/L 3.5-5.1 [facility] Basophil percentage 109 mmol/L 98-107 [facility] Bilirubin [Mass/Vol] 0.50 mg/dL 0.20-1.00 [facility] Comment on above: For patients on eltr ombopag therapy, use of Dimension Belk TBIL is not recommended. Chloride [Moles/Vol] 109 mmol/L 98-107 [facility] Glucose [Mass/Vol] 95 mg/dL 74-106 [facility] Potassium [Moles/Vol] 3.8 mmol/L 3.5-5.1 [facility] Protein [Mass/Vol] 6.0 g/dL 6.4-8.2 [facility] Sodium [Moles/Vol] 140 mmol/L 136-145 [facility] Blood manual differential co mment interpretation (narrative result)Ordered By: Maame Pinon on 09-10-2023 Manual differential comment Porter (Bld) [Interp] SCANNED [facility] Laboratory - Chemistry and C hemistry - challengeOrdered By: Maame Pinon on 09-10-2023 Albumin/Globulin [Mass ratio] 0.9 {ratio} 0.9-2.4 [facility] ALP [Catalytic activity/Vol] 104 U/L 45-117 [facility] ALT [Catalytic activity/Vol] 11 U/L 13-56 [facility] CO2 [Moles/Vol] 27.0 mmol/L 21.0-32.0 [facility] Globulin (S) [Mass/Vol] 3.1 g/dL 2.2-4.2 [facility] Magnesium [Mass/Vol] 2.1 mg/dL 1.6-2.6 [facility] Urea nitrogen/Creatinine [Mass ratio] 26.5 mg/mg 10-20 [facility] No Panel InformationOrdered By: Maame Pinon on 09-10-2023 Estimated Creatinine Clearance Calc 27.75 ml/min [facility] Estimated GFR (MDRD) Amer 76 mL/min >60 [facility] Comment on above: GFR Calc Estimated GFR (MDRD) Non-Af Amer 63 mL/min >60 [facility] Comment on above: Non- GFR Calc 63 mL/min >60 [facility] 76 mL/min >60 [facility] 27.75 ml/min [facility] 26.5 RATIO 10-20 [facility] 3.1 g/dL 2.2-4.2 [facility] 0.9 RATIO 0.9-2.4 [facility] 104 U/L 45-117 [facility] 11 U/L 13-56 [facility] 2.1 mg/dL 1.6-2.6 [facility] 27.0 mmol/L 21.0-32.0 [facility] Serum or plasma calcium fran urement (mass/volume)Ordered By: Maame Pinon on 09-10-2023 Calcium [Mass/Vol] 8.7 mg/dL 8.5-10.1 [facility] Serum or plasma creatinine m easurement (mass/volume)Ordered By: Maame Pinon on 09-10-2023 Creatinine [Mass/Vol] 0.90 mg/dL 0.55-1.02 [facility] Comment on above: The validity of the calculated GFR & GFRAA in patients over 70 years has not been determined. Clinical correlation is essential. Serum or plasma urea nitroge n measurement (mass/volume)Ordered By: Maame Pinon on 09-10-2023 Urea nitrogen [Mass/Vol] 24 mg/dL 7-18 [facility] Thin prep Papanicolaou smear with manual screeningOrdered By: Maame Pinon on 09-10-2023 Thin prep Papanicolaou smear with manual screening 2.9 g/dL 3.2-5.0 [facility] Thin prep Papanicolaou smear with manual screening 38 U/L 15-37 [facility] Thin prep Papanicolaou smear with manual screening 4 5-15 [facility] Basophil percentageOrdered B y: Gonzalez Garza on 09-09-2023 Basophil percentage 0-5 SEEN /hpf 0-5 [facility] Bilirubin Test strip Ql (U)O rdered By: Gonzalez Garza on 09-09-2023 Bilirubin Ql (U) Negative Negative [facility] Ketones Test strip Ql (U)Ord ered By: Gonzalez Garza on 09-09-2023 Ketones Ql (U) 5 mg/dl Negative [facility] Mucus LM Ql (Urine sed)Order ed By: Gonzalez Garza on 09-09-2023 Mucus Ql (Urine sed) 0 SEEN /hpf [facility] Nitrite Test strip Ql (U)Ord ered By: Gonzalez Garza on 09-09-2023 Nitrite Ql (U) Negative Negative [facility] No Panel InformationOrdered By: Gonzalez Garza on 09-09-2023 Urine RBC 0 SEEN /hpf 0-5 [facility] 0 SEEN /hpf 0-5 [facility] Protein Test strip Ql (U)Ord ered By: Gonzalez Garza on 09-09-2023 Protein Ql (U) 15 mg/dl Negative [facility] Squamous epithelial cells de tection in urine sediment by light microscopyOrdered By: Gonzalez Garza on 09-09-2023 Epithelial cells.squamous LM Ql (Urine sed) 0 SEEN /hpf 5-10 [facility] Transitional cells detection in urine sediment by light microscopyOrdered By: Gonzalez Garza on 09-09-2023 Transitional cells LM Ql (Urine sed) 0 SEEN /hpf 0-5 [facility] Urine blood detectionOrdered By: Gonzalez Garza on 09-09-2023 RBC Ql (U) Negative Negative [facility] Urine clarityOrdered By: Edda Garza on 09-09-2023 Clarity (U) Clear Clear [facility] Urine color determinationOrd ered By: Gonzalez Garza on 09-09-2023 Color (U) Yellow Yellow [facility] Urine glucose detectionOrder ed By: Gonzalez Garza on 09-09-2023 Glucose Ql (U) Normal mg/dl Normal [facility] Urine leukocyte esterase det ection by dipstickOrdered By: Gonzalez Garza on 09-09-2023 Leukocyte esterase Test strip Ql (U) 25 /ul Negative [facility] Urine pHOrdered By: Gonzalez Rivera on 09-09-2023 pH (U) 6.5 [pH] 5.0 - 8.0 [facility] Urine sediment bacteria coun t by microscopy (number/high power field)Ordered By: Gonzalez Garza on 09-09-2023 Bacteria LM.HPF (Urine sed) [#/Area] 1 /[HPF] None Seen [facility] Urine sediment renal epithel ial cell count by microscopy (number/high power field)Ordered By: Gonzalez Garza on 09-09-2023 Epithelial cells.renal LM.HPF (Urine sed) [#/Area] 0 /[HPF] 0-5 [facility] Urine specific gravity measu rementOrdered By: Gonzalez Garza on 09-09-2023 Specific gravity (U) [Rel density] 1.020 1.002-1.030 [facility] Urine urobilinogen measureme ntOrdered By: Gonzalez Garza on 09-09-2023 Urobilinogen Ql (U) Normal mg/dl Normal [facility] Absolute lymphocyte countOrd ered By: Germán Benson on 09-08-2023 Lymphocytes Auto (Unsp spec) [#/Vol] 5.22 10*3/uL 0.83-4.51 [facility] Automated lymphocyte count a s percentage of total leukocytesOrdered By: Germán Benson on 09-08-2023 Lymphocytes/100 WBC Auto (Unsp spec) 35.9 % 19-41 [facility] Basophil percentageOrdered B y: Germán Benson on 09-08-2023 Basophils/100 WBC (Bld) 2.4 % 0-1 [facility] Chloride [Moles/Vol] 106 mmol/L 98-107 [facility] Eosinophils/100 WBC (Bld) 2.5 % 0-5 [facility] Glucose [Mass/Vol] 123 mg/dL 74-106 [facility] Comment on above: Fasting Glucose resu lt from 100 to 125 mg/dL suggests IMPAIRED HOMEOSTASIS per A.D.A. criteria. Hemoglobin (Bld) [Mass/Vol] 12.8 g/dL 12.0-15.0 [facility] Monocytes/100 WBC (Bld) 7.5 % 0-10 [facility] Neutrophils (Bld) [#/Vol] 7.5 10*3/uL 2.0-7.7 [facility] Neutrophils/100 WBC (Bld) 51.3 % 47-70 [facility] Potassium [Moles/Vol] 4.4 mmol/L 3.5-5.1 [facility] Comment on above: Slight Hemolysis, Re sult may be falsely increased. Sodium [Moles/Vol] 139 mmol/L 136-145 [facility] WBC (Bld) [#/Vol] 14.5 10*3/uL 4.4-11.0 [facility] Blood manual differential co mment interpretation (narrative result)Ordered By: Germán Benson on 09-08-2023 Manual differential comment Porter (Bld) [Interp] SCANNED [facility] Determination of erythrocyte mean corpuscular volume (MCV)Ordered By: Germán Benson on 09-08-2023 MCV (RBC) [Entitic vol] 94.0 fL 81-99 [facility] Erythrocyte distribution wid th ratioOrdered By: Germán Benson on 09-08-2023 Erythrocyte distribution width (RBC) [Ratio] 13.5 % 11.6-14.6 [facility] Erythrocyte distribution wid th standard deviationOrdered By: Germán Benson on 09-08-2023 Erythrocyte distribution width (RBC) [Entitic vol] 46.9 fL 35.1-43.9 [facility] Hematocrit Auto (Bld) [Volum e fraction]Ordered By: Germán Benson on 09-08-2023 Hematocrit (Bld) [Volume fraction] 40.8 % 37-47 [facility] Immature granulocytes/100 WB C Auto (Bld)Ordered By: Germán Benson on 09-08-2023 Immature granulocytes/100 WBC (Bld) 0.400 % 0.0-0.9 [facility] Comment on above: IG% - Immature Granu locytes (promyelocytes, myelocytes and metamyelocytes) > 1% indicates that a LEFT SHIFT is Present. Laboratory - Chemistry and C hemistry - challengeOrdered By: Germán Benson on 09-08-2023 CK [Catalytic activity/Vol] 65 U/L 26-192 [facility] CO2 [Moles/Vol] 26.0 mmol/L 21.0-32.0 [facility] Urea nitrogen/Creatinine [Mass ratio] 18.7 mg/mg 10-20 [facility] Laboratory - Hematology and Cell countsOrdered By: Germán Benson on 09-08-2023 MCH (RBC) [Entitic mass] 29.5 pg 27.0-32.0 [facility] MCHC (RBC) [Mass/Vol] 31.4 g/dL 32-36 [facility] Nucleated RBC/100 WBC (Bld) [Ratio] 0 % 0-5 [facility] Platelet mean volume (Bld) [Entitic vol] 9.7 fL 6.2-12.0 [facility] Platelets (Bld) [#/Vol] 329 10*3/uL 150-450 [facility] No Panel InformationOrdered By: Germán Benson on 09-08-2023 Estimated Creatinine Clearance Calc 21.72 ml/min [facility] Estimated GFR (MDRD) Amer 53 mL/min >60 [facility] Comment on above: GFR Calc Estimated GFR (MDRD) Non-Af Amer 44 mL/min >60 [facility] Comment on above: Non- GFR Calc Troponin I High Sensitivity 7 pg/mL 3.0-54.0 [facility] Comment on above: Please Note: New Shreya t Units and Gender Specific Reference Ranges. For more information see Policy Stat Procedure Belk High Sensitivity Troponin (TNIH) and attachments. 65 U/L [facility] 7 pg/mL 3.0-54.0 [facility] RBC Auto (Bld) [#/Vol]Ordere d By: Germán Benson on 09-08-2023 RBC (Bld) [#/Vol] 4.34 10*6/uL 4.2-5.4 [facility] Serum or plasma calcium fran urement (mass/volume)Ordered By: Germán Benson on 09-08-2023 Calcium [Mass/Vol] 9.3 mg/dL 8.5-10.1 [facility] Serum or plasma creatinine m easurement (mass/volume)Ordered By: Germán Benson on 09-08-2023 Creatinine [Mass/Vol] 1.23 mg/dL 0.55-1.02 [facility] Comment on above: The validity of the calculated GFR & GFRAA in patients over 70 years has not been determined. Clinical correlation is essential. Serum or plasma urea nitroge n measurement (mass/volume)Ordered By: Germán Benson on 09-08-2023 Urea nitrogen [Mass/Vol] 23 mg/dL 7-18 [facility] Thin prep Papanicolaou smear with manual screeningOrdered By: Germán Benson on 09-08-2023 Thin prep Papanicolaou smear with manual screening 7 5-15 [facility] Culture, urineOrdered By: Keith Zimmerman on 08-21-2023 Bacteria identified Cx Nom (U) Culture exhibits no growth. [facility] Bacteria identified Cx Nom (U) Culture exhibits no growth. [facility] Absolute lymphocyte countOrd ered By: Howard Zimmerman on 08-20-2023 Lymphocytes Auto (Unsp spec) [#/Vol] 8.14 10*3/uL 0.83-4.51 [facility] Automated lymphocyte count a s percentage of total leukocytesOrdered By: Howard Zimmerman on 08-20-2023 Lymphocytes/100 WBC Auto (Unsp spec) 49.5 % 19-41 [facility] Basophil percentageOrdered B y: Howard Zimmerman on 08-20-2023 Basophil percentage 11.6 g/dL 12.0-15.0 [facility] Basophil percentage 106 mg/dL 74-106 [facility] Basophil percentage 138 mmol/L 136-145 [facility] Basophil percentage 4.4 mmol/L 3.5-5.1 [facility] Basophil percentage 107 mmol/L 98-107 [facility] Basophils (Bld) [#/Vol] 16.5 10*3/uL 4.4-11.0 [facility] Basophils (Bld) [#/Vol] 6.2 10*3/uL 2.0-7.7 [facility] Basophils/100 WBC (Bld) 2.7 % 0-1 [facility] Basophils/100 WBC (Bld) 37.3 % 47-70 [facility] Basophils/100 WBC (Bld) 8.4 % 0-10 [facility] Basophils/100 WBC (Bld) 1.8 % 0-5 [facility] Chloride [Moles/Vol] 107 mmol/L 98-107 [facility] Eosinophils/100 WBC (Bld) 1.8 % 0-5 [facility] Glucose [Mass/Vol] 106 mg/dL 74-106 [facility] Comment on above: Fasting Glucose resu lt from 100 to 125 mg/dL suggests IMPAIRED HOMEOSTASIS per A.D.A. criteria. Hemoglobin (Bld) [Mass/Vol] 11.6 g/dL 12.0-15.0 [facility] Monocytes/100 WBC (Bld) 8.4 % 0-10 [facility] Neutrophils (Bld) [#/Vol] 6.2 10*3/uL 2.0-7.7 [facility] Neutrophils/100 WBC (Bld) 37.3 % 47-70 [facility] Potassium [Moles/Vol] 4.4 mmol/L 3.5-5.1 [facility] Sodium [Moles/Vol] 138 mmol/L 136-145 [facility] WBC (Bld) [#/Vol] 16.5 10*3/uL 4.4-11.0 [facility] Blood manual differential co mment interpretation (narrative result)Ordered By: Howard Zimmerman on 08-20-2023 Manual differential comment Porter (Bld) [Interp] SCANNED [facility] Comment on above: LYMPHOCYTOSIS NOTED Determination of erythrocyte mean corpuscular volume (MCV)Ordered By: Howard Zimmerman on 08-20-2023 MCV (RBC) [Entitic vol] 94.1 fL 81-99 [facility] Erythrocyte distribution wid th ratioOrdered By: Howard Zimmerman on 08-20-2023 Erythrocyte distribution width (RBC) [Ratio] 13.9 % 11.6-14.6 [facility] Erythrocyte distribution wid th standard deviationOrdered By: Howard Zimmerman on 08-20-2023 Erythrocyte distribution width (RBC) [Entitic vol] 47.7 fL 35.1-43.9 [facility] Hematocrit Auto (Bld) [Volum e fraction]Ordered By: Howard Zimmerman on 08-20-2023 Hematocrit (Bld) [Volume fraction] 36.7 % 37-47 [facility] Immature granulocytes/100 WB C Auto (Bld)Ordered By: Howard Zimmerman on 08-20-2023 Immature granulocytes/100 WBC (Bld) 0.300 % 0.0-0.9 [facility] Comment on above: IG% - Immature Granu locytes (promyelocytes, myelocytes and metamyelocytes) > 1% indicates that a LEFT SHIFT is Present. Laboratory - Chemistry and C hemistry - challengeOrdered By: Howard Zimmerman on 08-20-2023 CO2 [Moles/Vol] 27.0 mmol/L 21.0-32.0 [facility] Urea nitrogen/Creatinine [Mass ratio] 22.9 mg/mg 10- [facility] Laboratory - Hematology and Cell countsOrdered By: Howard Zimmerman on 08-20-2023 MCH (RBC) [Entitic mass] 29.7 pg 27.0-32.0 [facility] MCHC (RBC) [Mass/Vol] 31.6 g/dL 32-36 [facility] Nucleated RBC/100 WBC (Bld) [Ratio] 0 % 0-5 [facility] Platelet mean volume (Bld) [Entitic vol] 11.9 fL 6.2-12.0 [facility] Platelets (Bld) [#/Vol] 207 10*3/uL 150-450 [facility] No Panel InformationOrdered By: Howard Zimmerman on 08-20-2023 Estimated GFR (MDRD) Amer 64 mL/min >60 [facility] Comment on above: GFR Calc Estimated GFR (MDRD) Non-Af Amer 53 mL/min >60 [facility] Comment on above: Non- GFR Calc 29.7 pg 27.0-32.0 [facility] 31.6 g/dL 32-36 [facility] 207 K/mm3 150-450 [facility] 11.9 fl 6.2-12.0 [facility] 0 % 0-5 [facility] 53 mL/min >60 [facility] 64 mL/min >60 [facility] 22.9 RATIO 04-06 [facility] 27.0 mmol/L 21.0-32.0 [facility] RBC Auto (Bld) [#/Vol]Ordere d By: Howard Zimmerman on 08-20-2023 RBC (Bld) [#/Vol] 3.90 10*6/uL 4.2-5.4 [facility] Serum or plasma calcium fran urement (mass/volume)Ordered By: Howard Zimmerman on 08-20-2023 Calcium [Mass/Vol] 9.0 mg/dL 8.5-10.1 [facility] Serum or plasma creatinine m easurement (mass/volume)Ordered By: Howard Zimmerman on 08-20-2023 Creatinine [Mass/Vol] 1.05 mg/dL 0.55-1.02 [facility] Comment on above: The validity of the calculated GFR & GFRAA in patients over 70 years has not been determined. Clinical correlation is essential. Serum or plasma urea nitroge n measurement (mass/volume)Ordered By: Howard Zimmerman on 08-20-2023 Urea nitrogen [Mass/Vol] 24 mg/dL 7-18 [facility] Thin prep Papanicolaou smear with manual screeningOrdered By: Howard Zimmerman on 08-20-2023 Thin prep Papanicolaou smear with manual screening 4 5-15 [facility] [facility] Absolute lymphocyte countOrd ered By: Umesh Velázquez on 07-28-2023 Lymphocytes Auto (Unsp spec) [#/Vol] 5.67 10*3/uL 0.83-4.51 [facility] Amorphous sediment detection in urine sediment by light microscopyOrdered By: Umesh Velázquez on 07-28-2023 Amorphous sediment LM Ql (Urine sed) 1+ [facility] Automated lymphocyte count a s percentage of total leukocytesOrdered By: Umesh Velázquez on 07-28-2023 Lymphocytes/100 WBC Auto (Unsp spec) 33.4 % 19-41 [facility] Basophil percentageOrdered B y: Umesh Velázquez on 07-28-2023 Basophil percentage 0 SEEN /hpf 0-5 [facility] Basophil percentage 12.4 g/dL 12.0-15.0 [facility] Basophil percentage 104 mg/dL 74-106 [facility] Basophil percentage 7.2 g/dL 6.4-8.2 [facility] Basophil percentage 0.70 mg/dL 0.20-1.00 [facility] Basophil percentage 137 mmol/L 136-145 [facility] Basophil percentage 4.2 mmol/L 3.5-5.1 [facility] Basophil percentage 103 mmol/L 98-107 [facility] Basophils (Bld) [#/Vol] 17.0 10*3/uL 4.4-11.0 [facility] Basophils (Bld) [#/Vol] 9.6 10*3/uL 2.0-7.7 [facility] Basophils/100 WBC (Bld) 1.9 % 0-1 [facility] Basophils/100 WBC (Bld) 56.7 % 47-70 [facility] Basophils/100 WBC (Bld) 7.1 % 0-10 [facility] Basophils/100 WBC (Bld) 0.4 % 0-5 [facility] Bilirubin [Mass/Vol] 0.70 mg/dL 0.20-1.00 [facility] Comment on above: For patients on eltr ombopag therapy, use of Dimension Belk TBIL is not recommended. Chloride [Moles/Vol] 103 mmol/L 98-107 [facility] Eosinophils/100 WBC (Bld) 0.4 % 0-5 [facility] Glucose [Mass/Vol] 104 mg/dL 74-106 [facility] Comment on above: Fasting Glucose resu lt from 100 to 125 mg/dL suggests IMPAIRED HOMEOSTASIS per A.D.A. criteria. Hemoglobin (Bld) [Mass/Vol] 12.4 g/dL 12.0-15.0 [facility] Monocytes/100 WBC (Bld) 7.1 % 0-10 [facility] Neutrophils (Bld) [#/Vol] 9.6 10*3/uL 2.0-7.7 [facility] Neutrophils/100 WBC (Bld) 56.7 % 47-70 [facility] Potassium [Moles/Vol] 4.2 mmol/L 3.5-5.1 [facility] Protein [Mass/Vol] 7.2 g/dL 6.4-8.2 [facility] Sodium [Moles/Vol] 137 mmol/L 136-145 [facility] WBC (Bld) [#/Vol] 17.0 10*3/uL 4.4-11.0 [facility] Bilirubin Test strip Ql (U)O rdered By: Umesh Velázquez on 07-28-2023 Bilirubin Ql (U) Negative Negative [facility] Blood manual differential co mment interpretation (narrative result)Ordered By: Umesh Velázquez on 07-28-2023 Manual differential comment Porter (Bld) [Interp] SCANNED [facility] Determination of erythrocyte mean corpuscular volume (MCV)Ordered By: Umesh Velázquez on 07-28-2023 MCV (RBC) [Entitic vol] 91.9 fL 81-99 [facility] Erythrocyte distribution wid th ratioOrdered By: Umesh Velázquez on 07-28-2023 Erythrocyte distribution width (RBC) [Ratio] 13.4 % 11.6-14.6 [facility] Erythrocyte distribution wid th standard deviationOrdered By: Umesh Velázquez on 07-28-2023 Erythrocyte distribution width (RBC) [Entitic vol] 45.3 fL 35.1-43.9 [facility] Hematocrit Auto (Bld) [Volum e fraction]Ordered By: Umesh Velázquez on 07-28-2023 Hematocrit (Bld) [Volume fraction] 37.4 % 37-47 [facility] Immature granulocytes/100 WB C Auto (Bld)Ordered By: Umesh Velázquez on 07-28-2023 Immature granulocytes/100 WBC (Bld) 0.500 % 0.0-0.9 [facility] Comment on above: IG% - Immature Granu locytes (promyelocytes, myelocytes and metamyelocytes) > 1% indicates that a LEFT SHIFT is Present. Ketones Test strip Ql (U)Ord ered By: Umehs Velázquez on 07-28-2023 Ketones Ql (U) Negative Negative [facility] Laboratory - Chemistry and C hemistry - challengeOrdered By: Umesh Velázquez on 07-28-2023 Albumin/Globulin [Mass ratio] 0.9 {ratio} 0.9-2.4 [facility] ALP [Catalytic activity/Vol] 148 U/L 45-117 [facility] ALT [Catalytic activity/Vol] 17 U/L 13-56 [facility] CO2 [Moles/Vol] 30.0 mmol/L 21.0-32.0 [facility] Globulin (S) [Mass/Vol] 3.7 g/dL 2.2-4.2 [facility] Urea nitrogen/Creatinine [Mass ratio] 22.7 mg/mg 10-20 [facility] Laboratory - Hematology and Cell countsOrdered By: Umesh Velázquez on 07-28-2023 MCH (RBC) [Entitic mass] 30.5 pg 27.0-32.0 [facility] MCHC (RBC) [Mass/Vol] 33.2 g/dL 32-36 [facility] Nucleated RBC/100 WBC (Bld) [Ratio] 0 % 0-5 [facility] Platelet mean volume (Bld) [Entitic vol] 10.3 fL 6.2-12.0 [facility] Platelets (Bld) [#/Vol] 402 10*3/uL 150-450 [facility] Mucus LM Ql (Urine sed)Order ed By: Umesh Velázquez on 07-28-2023 Mucus Ql (Urine sed) 0 SEEN /hpf [facility] Nitrite Test strip Ql (U)Ord ered By: Umesh Velázquez on 07-28-2023 Nitrite Ql (U) Negative Negative [facility] No Panel InformationOrdered By: Umesh Velázquez on 07-28-2023 Urine RBC 0 SEEN /hpf 0-5 [facility] 0 SEEN /hpf 0-5 [facility] Estimated Creatinine Clearance Calc 23.66 ml/min [facility] Estimated GFR (MDRD) Amer 55 mL/min >60 [facility] Comment on above: GFR Calc Estimated GFR (MDRD) Non-Af Amer 46 mL/min >60 [facility] Comment on above: Non- GFR Calc Reactive Lymphocytes 2+ [facility] 30.5 pg 27.0-32.0 [facility] 33.2 g/dL 32-36 [facility] 402 K/mm3 150-450 [facility] 10.3 fl 6.2-12.0 [facility] 0 % 0-5 [facility] 2+ [facility] 46 mL/min >60 [facility] 55 mL/min >60 [facility] 23.66 ml/min [facility] 22.7 RATIO 10-20 [facility] 3.7 g/dL 2.2-4.2 [facility] 0.9 RATIO 0.9-2.4 [facility] 148 U/L 45-117 [facility] 17 U/L 13-56 [facility] 30.0 mmol/L 21.0-32.0 [facility] Protein Test strip Ql (U)Ord ered By: Umesh Velázquez on 07-28-2023 Protein Ql (U) 15 mg/dl Negative [facility] RBC Auto (Bld) [#/Vol]Ordere d By: Umesh Velázquez on 07-28-2023 RBC (Bld) [#/Vol] 4.07 10*6/uL 4.2-5.4 [facility] Serum or plasma calcium fran urement (mass/volume)Ordered By: Umesh Velázquez on 07-28-2023 Calcium [Mass/Vol] 9.6 mg/dL 8.5-10.1 [facility] Serum or plasma creatinine m easurement (mass/volume)Ordered By: Umesh Velázquez on 07-28-2023 Creatinine [Mass/Vol] 1.19 mg/dL 0.55-1.02 [facility] Comment on above: The validity of the calculated GFR & GFRAA in patients over 70 years has not been determined. Clinical correlation is essential. Serum or plasma urea nitroge n measurement (mass/volume)Ordered By: Umesh Velázquez on 07-28-2023 Urea nitrogen [Mass/Vol] 27 mg/dL 7-18 [facility] Squamous epithelial cells de tection in urine sediment by light microscopyOrdered By: Umesh Velázquez on 07-28-2023 Epithelial cells.squamous LM Ql (Urine sed) 0 SEEN /hpf 10 [facility] Thin prep Papanicolaou smear with manual screeningOrdered By: Umesh Velázquez on 07-28-2023 Thin prep Papanicolaou smear with manual screening 3.5 g/dL 3.2-5.0 [facility] Thin prep Papanicolaou smear with manual screening 28 U/L 15-37 [facility] Thin prep Papanicolaou smear with manual screening 4 5-15 [facility] Urine blood detectionOrdered By: Umesh Velázquez on 07-28-2023 RBC Ql (U) Negative Negative [facility] Urine clarityOrdered By: Bebeto Velázquez on 07-28-2023 Clarity (U) Clear Clear [facility] Urine color determinationOrd ered By: Umesh Velázquez on 07-28-2023 Color (U) Yellow Yellow [facility] Urine glucose detectionOrder ed By: Umesh Velázquez on 07-28-2023 Glucose Ql (U) Normal mg/dl Normal [facility] Urine leukocyte esterase det ection by dipstickOrdered By: Umesh Velázquez on 07-28-2023 Leukocyte esterase Test strip Ql (U) Negative Negative [facility] Urine pHOrdered By: Umesh farmer on 07-28-2023 pH (U) 7.0 [pH] 5.0 - 8.0 [facility] Urine sediment bacteria coun t by microscopy (number/high power field)Ordered By: Umesh Velázquez on 07-28-2023 Bacteria LM.HPF (Urine sed) [#/Area] 0 /[HPF] None Seen [facility] Urine specific gravity measu rementOrdered By: Umesh Velázquez on 07-28-2023 Specific gravity (U) [Rel density] 1.010 1.002-1.030 [facility] Urine urobilinogen measureme ntOrdered By: Umesh Velázquez on 07-28-2023 Urobilinogen Ql (U) Normal mg/dl Normal [facility] Absolute lymphocyte countOrd ered By: Daisy Mack on 06-29-2023 Lymphocytes Auto (Unsp spec) [#/Vol] 5.59 10*3/uL 0.83-4.51 [facility] Basophil percentageOrdered B y: Daisy Mack on 06-29-2023 Basophil percentage 93 mg/dL 74-106 [facility] Basophil percentage 6.0 g/dL 6.4-8.2 [facility] Basophil percentage 0.40 mg/dL 0.20-1.00 [facility] Basophil percentage 210 mg/dL <200 [facility] Basophil percentage 134 mg/dL <199 [facility] Basophil percentage 139 mmol/L 136-145 [facility] Basophil percentage 4.0 mmol/L 3.5-5.1 [facility] Basophil percentage 107 mmol/L 98-107 [facility] Basophils (Bld) [#/Vol] 15.7 10*3/uL 4.4-11.0 [facility] Basophils (Bld) [#/Vol] 8.1 10*3/uL 2.0-7.7 [facility] Basophils/100 WBC (Bld) 2.2 % 0-1 [facility] Basophils/100 WBC (Bld) 51.9 % 47-70 [facility] Bilirubin [Mass/Vol] 0.40 mg/dL 0.20-1.00 [facility] Comment on above: For patients on eltr ombopag therapy, use of Dimension Belk TBIL is not recommended. Chloride [Moles/Vol] 107 mmol/L 98-107 [facility] Cholesterol [Mass/Vol] 210 mg/dL <200 [facility] Comment on above: <200 mg/dL Desirable 200-240 mg/dL Borderline >240 mg/dL High Risk Eosinophils/100 WBC (Bld) 2.2 % 0-5 [facility] Glucose [Mass/Vol] 93 mg/dL 74-106 [facility] Neutrophils (Bld) [#/Vol] 8.1 10*3/uL 2.0-7.7 [facility] Neutrophils/100 WBC (Bld) 51.9 % 47-70 [facility] Potassium [Moles/Vol] 4.0 mmol/L 3.5-5.1 [facility] Protein [Mass/Vol] 6.0 g/dL 6.4-8.2 [facility] Sodium [Moles/Vol] 139 mmol/L 136-145 [facility] Triglyceride [Mass/Vol] 134 mg/dL <199 [facility] Comment on above: The drugs N-Acetylcy steine and Metamizole may falsely depress this assay.Serum Triglycerides Reference Interval Normal <150 mg/dL Borderline high 150 - 199 mg/dL High 200 - 499 mg/dL Very High > or = 500 mg/dL WBC (Bld) [#/Vol] 15.7 10*3/uL 4.4-11.0 [facility] Blood erythrocytes count (nu mber/volume)Ordered By: Daisy Mack on 06-29-2023 RBC (Bld) [#/Vol] 4.27 10*6/uL 4.2-5.4 [facility] Blood hemoglobin measurement (mass/volume)Ordered By: Daisy Mack on 06-29-2023 Hemoglobin (Bld) [Mass/Vol] 12.7 g/dL 12.0-15.0 [facility] Blood lymphocytes/100 leukoc ytesOrdered By: Daisy Mack on 06-29-2023 Lymphocytes/100 WBC (Bld) 35.7 % 19-41 [facility] Blood manual differential co mment interpretation (narrative result)Ordered By: Daisy Mack on 06-29-2023 Manual differential comment Porter (Bld) [Interp] SCANNED [facility] Blood monocytes/100 leukocyt esOrdered By: Daisy Frederick on 06-29-2023 Monocytes/100 WBC (Bld) 7.7 % 0-10 [facility] Blood platelet mean volumeOr dered By: Daisy Mack on 06-29-2023 Platelet mean volume (Bld) [Entitic vol] 9.4 fL 6.2-12.0 [facility] Determination of erythrocyte mean corpuscular volume (MCV)Ordered By: [facility] Frederick on 06-29-2023 MCV (RBC) [Entitic vol] 91.6 fL 81-99 [facility] Hematocrit Auto (Bld) [Volum e fraction]Ordered By: [facility] [place] on 06-29-2023 Hematocrit (Bld) [Volume fraction] 39.1 % 37-47 [facility] Laboratory - Chemistry and C hemistry - challengeOrdered By: [facility] [place] on 06-29-2023 ALP [Catalytic activity/Vol] 91 U/L 45-117 [facility] ALT [Catalytic activity/Vol] 13 U/L 13-56 [facility] CO2 [Moles/Vol] 25.0 mmol/L 21.0-32.0 [facility] Globulin (S) [Mass/Vol] 3.1 g/dL 2.2-4.2 [facility] Urea nitrogen/Creatinine [Mass ratio] 24.0 mg/mg 10-20 [facility] Laboratory - Hematology and Cell countsOrdered By: [facility] [place] on 06-29-2023 Erythrocyte distribution width (RBC) [Entitic vol] 46.9 fL 35.1-43.9 [facility] Erythrocyte distribution width (RBC) [Ratio] 13.9 % 11.6-14.6 [facility] Immature granulocytes/100 WBC (Bld) 0.300 % 0.0-0.9 [facility] Comment on above: IG% - Immature Granu locytes (promyelocytes, myelocytes and metamyelocytes) > 1% indicates that a LEFT SHIFT is Present. MCH (RBC) [Entitic mass] 29.7 pg 27.0-32.0 [facility] Nucleated RBC/100 [facility] (Bld) [[facility]] 0 [facility] [Mass/Vol]Or dered By: Daisy Mack on 06-29-2023 MCHC (RBC) [Mass/Vol] 32.5 g/dL 32-36 [facility] No Panel InformationOrdered By: Daisy Mack on 06-29-2023 Estimated Creatinine Clearance Calc 28.02 ml/min [facility] Estimated GFR (MDRD) Amer 74 mL/min >60 [facility] Comment on above: GFR Calc Estimated GFR (MDRD) Non-Af Amer 62 mL/min >60 [facility] Comment on above: Non- GFR Calc Thyroid Stimulating Hormone (TSH) 2.02 uIU/mL 0.358-3.74 [facility] 29.7 pg 27.0-32.0 [facility] 13.9 % 11.6-14.6 [facility] 46.9 fl 35.1-43.9 [facility] 0.300 % 0.0-0.9 [facility] 0 % 0-5 [facility] 62 mL/min >60 [facility] 74 mL/min >60 [facility] 28.02 ml/min [facility] 24.0 RATIO 10-20 [facility] 3.1 g/dL 2.2-4.2 [facility] 91 U/L 45-117 [facility] 13 U/L 13-56 [facility] 25.0 mmol/L 21.0-32.0 [facility] 2.02 uIU/mL 0.358-3.74 [facility] Platelets bldOrdered By: Denny Mack on 06-29-2023 Platelets (Bld) [#/Vol] 346 10*3/uL 150-450 [facility] Serum or plasma albumin fran urement (mass/volume)Ordered By: Daisy Mack on 06-29-2023 Albumin [Mass/Vol] 2.9 g/dL 3.2-5.0 [facility] Serum or plasma albumin/glob ulin mass ratioOrdered By: Daisy Mack on 06-29-2023 Albumin/Globulin [Mass ratio] 0.9 {ratio} 0.9-2.4 [facility] Serum or plasma calcium fran urement (mass/volume)Ordered By: Daisy Mack on 06-29-2023 Calcium [Mass/Vol] 8.7 mg/dL 8.5-10.1 [facility] Serum or plasma cholesterol in HDL measurement (mass/volume)Ordered By: Daisy Mack on 06-29-2023 Cholesterol in HDL [Mass/Vol] 57 mg/dL >40 [facility] Comment on above: The drugs N-Acetylcy steine and Metamizole may falsely depress this assay. Reference Range HDL <40 mg/dL Low HDL Cholesterol HDL >or= 60 mg/dL High HDL Cholesterol Serum or plasma cholesterol in VLDL measurement (mass/volume)Ordered By: Daisy Mack on 06-29-2023 Cholesterol in VLDL [Mass/Vol] 27 mg/dL 5-40 [facility] Serum or plasma creatinine m easurement (mass/volume)Ordered By: Daisy Mack 06-29-2023 Creatinine [Mass/Vol] 0.92 mg/dL 0.55-1.02 [facility] Comment on above: The validity of the calculated GFR & GFRAA in patients over 70 years has not been determined. Clinical correlation is essential. Serum or plasma low density lipoprotein (LDL) cholesterol measurement (mass/volume)Ordered By: Daisy Mack on 06-29-2023 Cholesterol in LDL [Mass/Vol] 126 mg/dL 0-130 [facility] Serum or plasma urea nitroge n measurement (mass/volume)Ordered By: Daisy Mack 06-29-2023 Urea nitrogen [Mass/Vol] 22 mg/dL 7-18 [facility] Thin prep Papanicolaou smear with manual screeningOrdered By: Daisy Mack 06-29-2023 Thin prep Papanicolaou smear with manual screening 22 U/L 15-37 [facility] Thin prep Papanicolaou smear with manual screening 7 5-15 [facility] Whole blood hemoglobin A1c/t otal hemoglobin ratio (mass fraction)Ordered By: Daisy Mack on 06-29-2023 HbA1c (Bld) [Mass fraction] 5.3 % 3.8-5.6 [facility] Comment on above: Normal < 5.7 % Predi abetic 5.7 - 6.4 % Diabetic >or= 6.5 % Please note range changes. Absolute lymphocyte countOrd ered By: Myrna Munguia on 06-28-2023 Lymphocytes Auto (Unsp spec) [#/Vol] 7.62 10*3/uL 0.83-4.51 [facility] Basophil percentageOrdered B y: Myrna Munguia on 06-28-2023 Basophils/100 WBC (Bld) 2.6 % 0-1 [facility] Chloride [Moles/Vol] 103 mmol/L 98-107 [facility] Eosinophils/100 WBC (Bld) 2.3 % 0-5 [facility] Glucose [Mass/Vol] 91 mg/dL 74-106 [facility] Neutrophils (Bld) [#/Vol] 4.8 10*3/uL 2.0-7.7 [facility] Neutrophils/100 WBC (Bld) 33.4 % 47-70 [facility] Potassium [Moles/Vol] 4.1 mmol/L 3.5-5.1 [facility] Sodium [Moles/Vol] 137 mmol/L 136-145 [facility] WBC (Bld) [#/Vol] 14.4 10*3/uL 4.4-11.0 [facility] Blood erythrocytes count (nu mber/volume)Ordered By: Myrna Munguia on 06-28-2023 RBC (Bld) [#/Vol] 4.30 10*6/uL 4.2-5.4 [facility] Blood hemoglobin measurement (mass/volume)Ordered By: Myrna Munguia on 06-28-2023 Hemoglobin (Bld) [Mass/Vol] 12.8 g/dL 12.0-15.0 [facility] Blood lymphocytes/100 leukoc ytesOrdered By: Myrna Munguia on 06-28-2023 Lymphocytes/100 WBC (Bld) 53.0 % 19-41 [facility] Blood manual differential co mment interpretation (narrative result)Ordered By: Myrna Munguia on 06-28-2023 Manual differential comment Porter (Bld) [Interp] SCANNED [facility] Comment on above: LYMPHOCYTOSIS Blood monocytes/100 leukocyt esOrdered By: Myrna Munguia on 06-28-2023 Monocytes/100 WBC (Bld) 8.4 % 0-10 [facility] Blood platelet mean volumeOr dered By: Myrna Munguia on 06-28-2023 Platelet mean volume (Bld) [Entitic vol] 9.6 fL 6.2-12.0 [facility] Determination of erythrocyte mean corpuscular volume (MCV)Ordered By: Myrna Munguia on 06-28-2023 MCV (RBC) [Entitic vol] 93.5 fL 81-99 [facility] Glucose Glucometer (BldC) [M ass/Vol]Ordered By: Myrna Munguia on 06-28-2023 Glucose [Mass/Vol] 78 mg/dL 74-106 [facility] Comment on above: MANAGEMENT OF PATIEN T CARE PER NURSING PROTOCOL Hematocrit Auto (Bld) [Volum e fraction]Ordered By: Myrna Munguia on 06-28-2023 Hematocrit (Bld) [Volume fraction] 40.2 % 37-47 [facility] INR in Blood by Coagulation assayOrdered By: Myrna Munguia on 06-28-2023 INR Coag (Bld) [Relative time] 1.0 {INR} [facility] Laboratory - Chemistry and C hemistry - challengeOrdered By: Myrna Munguia on 06-28-2023 CO2 [Moles/Vol] 29.0 mmol/L 21.0-32.0 [facility] Urea nitrogen/Creatinine [Mass ratio] 23.5 mg/mg 10-20 [facility] - Chemistry and C hemistry - challengeOrdered By: Daisy Mack on 06-28-2023 Magnesium [Mass/Vol] 2.3 mg/dL 1.6-2.6 [facility] Laboratory - CoagulationOrde red By: Myrna Munguia on 06-28-2023 aPTT Coag (Bld) [Time] 27.6 s 24.1-36.2 [facility] PT Coag (PPP) [Time] 12.6 s 11.7-14.9 [facility] Laboratory - Hematology and Cell countsOrdered By: Myrna Munguia on 06-28-2023 Erythrocyte distribution width (RBC) [Entitic vol] 48.0 fL 35.1-43.9 [facility] Erythrocyte distribution width (RBC) [Ratio] 14.0 % 11.6-14.6 [facility] Immature granulocytes/100 WBC (Bld) 0.300 % 0.0-0.9 [facility] Comment on above: IG% - Immature Granu locytes (promyelocytes, myelocytes and metamyelocytes) > 1% indicates that a LEFT SHIFT is Present. MCH (RBC) [Entitic mass] 29.8 pg 27.0-32.0 [facility] Nucleated RBC/100 WBC (Bld) [Ratio] 0 % 0-5 [facility] MCHC Auto (RBC) [Mass/Vol]Or dered By: Myrna Munguia on 06-28-2023 MCHC (RBC) [Mass/Vol] 31.8 g/dL 32-36 [facility] No Panel InformationOrdered By: Myrna Munguia on 06-28-2023 Estimated Creatinine Clearance Calc 25.91 ml/min [facility] Estimated GFR (MDRD) Amer 66 mL/min >60 [facility] Comment on above: GFR Calc Estimated GFR (MDRD) Non-Af Amer 55 mL/min >60 [facility] Comment on above: Non- GFR Calc Reactive Lymphocytes 1+ [facility] Troponin I High Sensitivity 6 pg/mL 3.0-54.0 [facility] Comment on above: Please Note: New Shreya t Units and Gender Specific Reference Ranges. For more information see Policy Stat Procedure Belk High Sensitivity Troponin (TNIH) and attachments. 1+ [facility] 12.6 SECONDS 11.7-14.9 [facility] 27.6 Seconds 24.1-36.2 [facility] 6 pg/mL 3.0-54.0 [facility] No Panel InformationOrdered By: Daisy Mack on 06-28-2023 2.3 mg/dL 1.6-2.6 [facility] Platelets bldOrdered By: Estefani Munguia on 06-28-2023 Platelets (Bld) [#/Vol] 357 10*3/uL 150-450 [facility] Serum or plasma calcium fran urement (mass/volume)Ordered By: Myrna Munguia on 06-28-2023 Calcium [Mass/Vol] 9.2 mg/dL 8.5-10.1 [facility] Serum or plasma creatinine m easurement (mass/volume)Ordered By: Myrna Munguia on 06-28-2023 Creatinine [Mass/Vol] 1.02 mg/dL 0.55-1.02 [facility] Comment on above: The validity of the calculated GFR & GFRAA in patients over 70 years has not been determined. Clinical correlation is essential. Serum or plasma urea nitroge n measurement (mass/volume)Ordered By: Myrna Munguia on 06-28-2023 Urea nitrogen [Mass/Vol] 24 mg/dL 7-18 [facility] Thin prep Papanicolaou smear with manual screeningOrdered By: Myrna Munugia on 06-28-2023 Thin prep Papanicolaou smear with manual screening 5 5-15 [facility] Absolute lymphocyte countOrd ered By: Howard Zimmerman on 05-28-2023 Lymphocytes Auto (Unsp spec) [#/Vol] 7.42 10*3/uL 0.83-4.51 [facility] Basophil percentageOrdered B y: Howard Zimmerman on 05-28-2023 Basophils/100 WBC (Bld) 2.9 % 0-1 [facility] Bilirubin [Mass/Vol] 0.60 mg/dL 0.20-1.00 [facility] Comment on above: For patients on eltr ombopag therapy, use of Dimension Belk TBIL is not recommended. Chloride [Moles/Vol] 104 mmol/L 98-107 [facility] Eosinophils/100 WBC (Bld) 1.4 % 0-5 [facility] Glucose [Mass/Vol] 108 mg/dL 74-106 [facility] Comment on above: Fasting Glucose resu lt from 100 to 125 mg/dL suggests IMPAIRED HOMEOSTASIS per A.D.A. criteria. Neutrophils (Bld) [#/Vol] 5.4 10*3/uL 2.0-7.7 [facility] Neutrophils/100 WBC (Bld) 36.6 % 47-70 [facility] Potassium [Moles/Vol] 4.2 mmol/L 3.5-5.1 [facility] Protein [Mass/Vol] 6.9 g/dL 6.4-8.2 [facility] Sodium [Moles/Vol] 139 mmol/L 136-145 [facility] WBC (Bld) [#/Vol] 14.6 10*3/uL 4.4-11.0 [facility] Blood erythrocytes count (nu mber/volume)Ordered By: Howard Zimmerman on 05-28-2023 RBC (Bld) [#/Vol] 4.08 10*6/uL 4.2-5.4 [facility] Blood hemoglobin measurement (mass/volume)Ordered By: Howard Zimmerman on 05-28-2023 Hemoglobin (Bld) [Mass/Vol] 12.1 g/dL 12.0-15.0 [facility] Blood lymphocytes/100 leukoc ytesOrdered By: Howard Zimmerman on 05-28-2023 Lymphocytes/100 WBC (Bld) 50.7 % 19-41 [facility] Blood manual differential co mment interpretation (narrative result)Ordered By: Howard Zimmerman on 05-28-2023 Manual differential comment Porter (Bld) [Interp] See comment [facility] Comment on above: LYMPHOCYTOSIS NOTED Blood monocytes/100 leukocyt esOrdered By: Howard Zimmerman on 05-28-2023 Monocytes/100 WBC (Bld) 8.2 % 0-10 [facility] Blood platelet mean volumeOr dered By: Howard Zimmerman on 05-28-2023 Platelet mean volume (Bld) [Entitic vol] 10.3 fL 6.2-12.0 [facility] Determination of erythrocyte mean corpuscular volume (MCV)Ordered By: Howard Zimmerman on 05-28-2023 MCV (RBC) [Entitic vol] 94.9 fL 81-99 [facility] Hematocrit Auto (Bld) [Volum e fraction]Ordered By: Howard Zimmerman on 05-28-2023 Hematocrit (Bld) [Volume fraction] 38.7 % 37-47 [facility] Laboratory - Chemistry and C hemistry - challengeOrdered By: Howard Zimmerman on 05-28-2023 ALP [Catalytic activity/Vol] 96 U/L 45-117 [facility] ALT [Catalytic activity/Vol] 14 U/L 13-56 [facility] CO2 [Moles/Vol] 31.0 mmol/L 21.0-32.0 [facility] Globulin (S) [Mass/Vol] 3.5 g/dL 2.2-4.2 [facility] Urea nitrogen/Creatinine [Mass ratio] 20.9 mg/mg 10-20 [facility] - Hematology and Cell countsOrdered By: Howard Zimmerman on 05-28-2023 Erythrocyte distribution width (RBC) [Entitic vol] 48.9 fL 35.1-43.9 [facility] Erythrocyte distribution width (RBC) [Ratio] 14.0 % 11.6-14.6 [facility] Immature granulocytes/100 WBC (Bld) 0.200 % 0.0-0.9 [facility] Comment on above: IG% - Immature Granu locytes (promyelocytes, myelocytes and metamyelocytes) > 1% indicates that a LEFT SHIFT is Present. MCH (RBC) [Entitic mass] 29.7 pg 27.0-32.0 [facility] Nucleated RBC/100 WBC (Bld) [Ratio] 0 % 0-5 [facility] MCHC Auto (RBC) [Mass/Vol]Or dered By: Howard Zimmerman on 05-28-2023 MCHC (RBC) [Mass/Vol] 31.3 g/dL 32-36 [facility] No Panel InformationOrdered By: Howard Zimmerman on 05-28-2023 Estimated GFR (MDRD) Amer 57 mL/min >60 [facility] Comment on above: GFR Calc Estimated GFR (MDRD) Non-Af Amer 47 mL/min >60 [facility] Comment on above: Non- GFR Calc Thyroid Stimulating Hormone (TSH) 1.37 uIU/mL 0.358-3.74 [facility] Vitamin D 25-Hydroxy 46.6 ng/mL [facility] Comment on above: Vitamin D 25(OH) Sta tus Range Deficiency <20 ng/mL (50nmol/L) Insufficiency 20 - 30 ng/mL (50 - 75 nmol/L) Sufficiency 30 - 100 ng/mL (75 - 250 nmol/L) Toxicity >100 ng/mL (>250 nmol/L) Platelets bldOrdered By: Howard Zimmerman on 05-28-2023 Platelets (Bld) [#/Vol] 425 10*3/uL 150-450 [facility] Serum or plasma albumin fran urement (mass/volume)Ordered By: Howard Zimmerman on 05-28-2023 Albumin [Mass/Vol] 3.4 g/dL 3.2-5.0 [facility] Serum or plasma albumin/glob ulin mass ratioOrdered By: Howard Zimmerman on 05-28-2023 Albumin/Globulin [Mass ratio] 1.0 {ratio} 0.9-2.4 [facility] Serum or plasma calcium fran urement (mass/volume)Ordered By: Howard Zimmerman on 05-28-2023 Calcium [Mass/Vol] 8.8 mg/dL 8.5-10.1 [facility] Serum or plasma creatinine m easurement (mass/volume)Ordered By: Howard Zimmerman on 05-28-2023 Creatinine [Mass/Vol] 1.15 mg/dL 0.55-1.02 [facility] Comment on above: The validity of the calculated GFR & GFRAA in patients over 70 years has not been determined. Clinical correlation is essential. Serum or plasma urea nitroge n measurement (mass/volume)Ordered By: Howard Zimmerman on 05-28-2023 Urea nitrogen [Mass/Vol] 24 mg/dL 7-18 [facility] Thin prep Papanicolaou smear with manual screeningOrdered By: Howard Zimmerman 05-28-2023 Thin prep Papanicolaou smear with manual screening 31 U/L 15-37 [facility] Thin prep Papanicolaou smear with manual screening 4 5-15 [facility] - Microbiology an d Antimicrobial susceptibilityOrdered By: Howard Zimmerman 05-15-2023 SARS-CoV-2 (COVID-19) RNA DEONTE+probe Ql (Unsp spec) SARS-CoV-2 (COVID 19 PCR) [facility] SARS-CoV-2 (COVID-19) RNA DEONTE+probe Ql (Unsp spec) SARS-CoV-2 (COVID 19 PCR) [facility] No Panel InformationOrdered By: Howard Zimmerman on 05-15-2023 Influenza Types A,B Direct FA (ARIANNA) [facility] Influenza Types A,B Direct FA (ARIANNA) [facility] RSV Ag EIAOrdered By: Howard almaraz on 05-15-2023 RSV Ag Immune stain Ql (Tiss) [facility] RSV Ag Immune stain Ql (Tiss) [facility] Absolute lymphocyte countOrd ered By: Howard Zimmerman on 05-14-2023 Lymphocytes Auto (Unsp spec) [#/Vol] 6.75 10*3/uL 0.83-4.51 [facility] Basophil percentageOrdered B y: Howard Zimmerman on 05-14-2023 Basophils/100 WBC (Bld) 2.8 % 0-1 [facility] Chloride [Moles/Vol] 103 mmol/L 98-107 [facility] Eosinophils/100 WBC (Bld) 0.3 % 0-5 [facility] Glucose [Mass/Vol] 112 mg/dL 74-106 [facility] Comment on above: Fasting Glucose resu lt from 100 to 125 mg/dL suggests IMPAIRED HOMEOSTASIS per A.D.A. criteria. Neutrophils (Bld) [#/Vol] 3.2 10*3/uL 2.0-7.7 [facility] Neutrophils/100 WBC (Bld) 26.9 % 47-70 [facility] Potassium [Moles/Vol] 4.1 mmol/L 3.5-5.1 [facility] Comment on above: Slight Hemolysis, Re sult may be falsely increased. Sodium [Moles/Vol] 139 mmol/L 136-145 [facility] WBC (Bld) [#/Vol] 11.8 10*3/uL 4.4-11.0 [facility] Blood erythrocytes count (nu mber/volume)Ordered By: Howard Zimmerman on 05-14-2023 RBC (Bld) [#/Vol] 4.26 10*6/uL 4.2-5.4 [facility] Blood hemoglobin measurement (mass/volume)Ordered By: Howard Zimmerman on 05-14-2023 Hemoglobin (Bld) [Mass/Vol] 12.8 g/dL 12.0-15.0 [facility] Blood lymphocytes/100 leukoc ytesOrdered By: Howard Zimmerman on 05-14-2023 Lymphocytes/100 WBC (Bld) 57.1 % 19-41 [facility] Blood manual differential co mment interpretation (narrative result)Ordered By: Howard Zimmerman on 05-14-2023 Manual differential comment Porter (Bld) [Interp] SCANNED [facility] Comment on above: LYMPHOCYTOSIS NOTED Blood monocytes/100 leukocyt esOrdered By: Howard Zimmerman on 05-14-2023 Monocytes/100 WBC (Bld) 12.6 % 0-10 [facility] Blood platelet mean volumeOr dered By: Howard Zimmerman on 05-14-2023 Platelet mean volume (Bld) [Entitic vol] 10.9 fL 6.2-12.0 [facility] Culture, urineOrdered By: Keith Zimmerman on 05-14-2023 Bacteria identified Cx Nom (U) Culture exhibits no growth. [facility] Bacteria identified Cx Nom (U) Culture exhibits no growth. [facility] Determination of erythrocyte mean corpuscular volume (MCV)Ordered By: Howard Zimmerman on 05-14-2023 MCV (RBC) [Entitic vol] 95.3 fL 81-99 [facility] Hematocrit Auto (Bld) [Volum e fraction]Ordered By: Howard Zimmerman on 05-14-2023 Hematocrit (Bld) [Volume fraction] 40.6 % 37-47 [facility] - Chemistry and C hemistry - challengeOrdered By: Howard Zimmerman on 05-14-2023 CO2 [Moles/Vol] 28.0 mmol/L 21.0-32.0 [facility] Urea nitrogen/Creatinine [Mass ratio] 15.8 mg/mg 10-20 [facility] - Hematology and Cell countsOrdered By: Howard Zimmerman on 05-14-2023 Erythrocyte distribution width (RBC) [Entitic vol] 50.0 fL 35.1-43.9 [facility] Erythrocyte distribution width (RBC) [Ratio] 14.2 % 11.6-14.6 [facility] Immature granulocytes/100 WBC (Bld) 0.300 % 0.0-0.9 [facility] Comment on above: IG% - Immature Granu locytes (promyelocytes, myelocytes and metamyelocytes) > 1% indicates that a LEFT SHIFT is Present. MCH (RBC) [Entitic mass] 30.0 pg 27.0-32.0 [facility] Nucleated RBC/100 WBC (Bld) [Ratio] 0 % 0-5 [facility] MCHC Auto (RBC) [Mass/Vol]Or dered By: Howard Zimmerman on 05-14-2023 MCHC (RBC) [Mass/Vol] 31.5 g/dL 32-36 [facility] No Panel InformationOrdered By: Howard Zimmerman on 05-14-2023 Estimated GFR (MDRD) Amer 49 mL/min >60 [facility] Comment on above: GFR Calc Estimated GFR (MDRD) Non-Af Amer 40 mL/min >60 [facility] Comment on above: Non- GFR Calc Platelets bldOrdered By: Howard Zimmerman on 05-14-2023 Platelets (Bld) [#/Vol] 333 10*3/uL 150-450 [facility] Serum or plasma calcium fran urement (mass/volume)Ordered By: Howard Zimmerman on 05-14-2023 Calcium [Mass/Vol] 8.5 mg/dL 8.5-10.1 [facility] Serum or plasma creatinine m easurement (mass/volume)Ordered By: Howard Zimmerman on 05-14-2023 Creatinine [Mass/Vol] 1.33 mg/dL 0.55-1.02 [facility] Comment on above: The validity of the calculated GFR & GFRAA in patients over 70 years has not been determined. Clinical correlation is essential. Serum or plasma urea nitroge n measurement (mass/volume)Ordered By: Howard Zimmerman on 05-14-2023 Urea nitrogen [Mass/Vol] 21 mg/dL 7-18 [facility] Thin prep Papanicolaou smear with manual screeningOrdered By: Howard Zimmerman on 05-14-2023 Thin prep Papanicolaou smear with manual screening 8 5-15 [facility] No Panel InformationOrdered By: Adam Alonso on 05-08-2023 Miscellaneous Test See comment [facility] Comment on above: Sent directly to [facility] per ordering physician. Absolute lymphocyte countOrd ered By: Howard Zimmerman on 04-02-2023 Lymphocytes Auto (Unsp spec) [#/Vol] 8.16 10*3/uL 0.83-4.51 [facility] Basophil percentageOrdered B y: Howard Zimmerman on 04-02-2023 Basophils/100 WBC (Bld) 2.5 % 0-1 [facility] Bilirubin [Mass/Vol] 0.50 mg/dL 0.20-1.[address] [facility] Comment on above: For patients on eltr ombopag therapy, use of Dimension Belk TBIL is not recommended. Chloride [Moles/Vol] 103 mmol/L 98-107 [facility] Eosinophils/100 WBC (Bld) 0.9 % 0-5 [facility] Glucose [Mass/Vol] 102 mg/dL 74-106 [facility] Comment on above: Fasting Glucose resu lt from 100 to 125 mg/dL suggests IMPAIRED HOMEOSTASIS per A.D.A. criteria. Neutrophils (Bld) [#/Vol] 7.1 10*3/uL 2.0-7.7 [facility] Neutrophils/100 WBC (Bld) 41.0 % 47-70 [facility] Potassium [Moles/Vol] 4.1 mmol/L 3.5-5.1 [facility] Protein [Mass/Vol] 6.8 g/dL 6.4-8.2 [facility] Sodium [Moles/Vol] 137 mmol/L 136-145 [facility] WBC (Bld) [#/Vol] 17.4 10*3/uL 4.4-11.0 [facility] Blood erythrocytes count (nu mber/volume)Ordered By: Howard Zimmerman on 04-02-2023 RBC (Bld) [#/Vol] 4.08 10*6/uL 4.2-5.4 [facility] Blood hemoglobin measurement (mass/volume)Ordered By: Howard Zimmerman on 04-02-2023 Hemoglobin (Bld) [Mass/Vol] 12.1 g/dL 12.0-15.0 [facility] Blood lymphocytes/100 leukoc ytesOrdered By: Howard Zimmerman on 04-02-2023 Lymphocytes/100 WBC (Bld) 46.9 % 19-41 [facility] Blood manual differential co mment interpretation (narrative result)Ordered By: Howard Zimmerman on 04-02-2023 Manual differential comment Porter (Bld) [Interp] COMMENT [facility] Comment on above: LYMPHOCYTOSIS. Blood monocytes/100 leukocyt esOrdered By: Howard Zimmerman on 04-02-2023 Monocytes/100 WBC (Bld) 8.3 % 0-10 [facility] Blood platelet mean volumeOr dered By: Howard Zimmerman on 04-02-2023 Platelet mean volume (Bld) [Entitic vol] 9.8 fL 6.2-12.0 [facility] Determination of erythrocyte mean corpuscular volume (MCV)Ordered By: Howard Zimmerman on 04-02-2023 MCV (RBC) [Entitic vol] 94.1 fL 81-99 [facility] Hematocrit Auto (Bld) [Volum e fraction]Ordered By: Howard Zimmerman on 04-02-2023 Hematocrit (Bld) [Volume fraction] 38.4 % 37-47 [facility] - Chemistry and C hemistry - challengeOrdered By: [facility] ALP [Catalytic activity/Vol] 91 U/L 45-117 [facility] ALT [Catalytic activity/Vol] 8 U/L 13-56 [facility] CO2 [Moles/Vol] 29.0 mmol/L 21.0-32.0 [facility] Globulin (S) [Mass/Vol] 3.3 g/dL 2.2-4.2 [facility] Urea nitrogen/Creatinine [Mass ratio] 18.3 mg/mg 10-20 [facility] - Hematology and Cell countsOrdered By: [facility] Erasmo on 04-02-2023 Erythrocyte distribution width (RBC) [Entitic vol] 47.0 fL 35.1-43.9 [facility] Erythrocyte distribution width (RBC) [Ratio] 13.6 % 11.6-14.6 [facility] Immature granulocytes/100 WBC (Bld) 0.400 % 0.0-0.9 [facility] Comment on above: IG% - Immature Granu locytes (promyelocytes, myelocytes and metamyelocytes) > 1% indicates that a LEFT SHIFT is Present. MCH (RBC) [Entitic mass] 29.7 pg 27.0-32.0 [facility] Nucleated RBC/100 WBC (Bld) [Ratio] 0 % 0-5 [facility] MCHC Auto (RBC) [Mass/Vol]Or dered By: Howard Zimmerman on 04-02-2023 MCHC (RBC) [Mass/Vol] 31.5 g/dL 32-36 [facility] No Panel InformationOrdered By: Howard Zimmerman on 04-02-2023 Estimated GFR (MDRD) Amer 55 mL/min >60 [facility] Comment on above: GFR Calc Estimated GFR (MDRD) Non-Af Amer 45 mL/min >60 [facility] Comment on above: Non- GFR Calc Platelets bldOrdered By: Howard Zimmerman on 04-02-2023 Platelets (Bld) [#/Vol] 349 10*3/uL 150-450 [facility] Serum or plasma albumin fran urement (mass/volume)Ordered By: Howard Zimmerman on 04-02-2023 Albumin [Mass/Vol] 3.5 g/dL 3.2-5.0 [facility] Serum or plasma albumin/glob ulin mass ratioOrdered By: Howard Zimmerman on 04-02-2023 Albumin/Globulin [Mass ratio] 1.1 {ratio} 0.9-2.4 [facility] Serum or plasma calcium fran urement (mass/volume)Ordered By: Howard Zimmerman on 04-02-2023 Calcium [Mass/Vol] 9.0 mg/dL 8.5-10.1 [facility] Serum or plasma creatinine m easurement (mass/volume)Ordered By: Howard Zimmerman on 04-02-2023 Creatinine [Mass/Vol] 1.20 mg/dL 0.55-1.02 [facility] Comment on above: The validity of the calculated GFR & GFRAA in patients over 70 years has not been determined. Clinical correlation is essential. Serum or plasma urea nitroge n measurement (mass/volume)Ordered By: Howard Zimmerman on 04-02-2023 Urea nitrogen [Mass/Vol] 22 mg/dL 7-18 [facility] Thin prep Papanicolaou smear with manual screeningOrdered By: Howard Zimmerman on 04-02-2023 Thin prep Papanicolaou smear with manual screening 25 U/L 15-37 [facility] Thin prep Papanicolaou smear with manual screening 5 5-15 [facility] CNPNon 03-18-2023 APOLINAR Telephone (Testt) KAYLENE HAYNES ( ) 1935 F Date [...] Encounter Status:Closed by AYANNA GARZA on 03/19/23 [facility] Absolute lymphocyte countOrd ered By: Howard Zimmerman on 02-21-2023 Lymphocytes Auto (Unsp spec) [#/Vol] 6.55 10*3/uL 0.83-4.51 [facility] Basophil percentageOrdered B y: Howard Zimmerman on 02-21-2023 Basophils/100 WBC (Bld) 2.3 % 0-1 [facility] Bilirubin [Mass/Vol] 0.70 mg/dL 0.20-1.00 [facility] Comment on above: For patients on eltr ombopag therapy, use of Dimension Belk TBIL is not recommended. Chloride [Moles/Vol] 102 mmol/L 98-107 [facility] Eosinophils/100 WBC (Bld) 2.3 % 0-5 [facility] Glucose [Mass/Vol] 94 mg/dL 74-106 [facility] Neutrophils (Bld) [#/Vol] 7.3 10*3/uL 2.0-7.7 [facility] Neutrophils/100 WBC (Bld) 45.2 % 47-70 [facility] Potassium [Moles/Vol] 3.8 mmol/L 3.5-5.1 [facility] Protein [Mass/Vol] 7.1 g/dL 6.4-8.2 [facility] Sodium [Moles/Vol] 137 mmol/L 136-145 [facility] WBC (Bld) [#/Vol] 16.3 10*3/uL 4.4-11.0 [facility] Blood erythrocytes count (nu mber/volume)Ordered By: Howard Zimmerman on 02-21-2023 RBC (Bld) [#/Vol] 4.25 10*6/uL 4.2-5.4 [facility] Blood hemoglobin measurement (mass/volume)Ordered By: Howard Zimmerman on 02-21-2023 Hemoglobin (Bld) [Mass/Vol] 12.7 g/dL 12.0-15.0 [facility] Blood lymphocytes/100 leukoc ytesOrdered By: Howard Zimmerman on 02-21-2023 Lymphocytes/100 WBC (Bld) 40.3 % 19-41 [facility] Blood manual differential co mment interpretation (narrative result)Ordered By: Howard Zimmerman on 02-21-2023 Manual differential comment Porter (Bld) [Interp] COMMENT [facility] Comment on above: LYMPHOCYTOSIS.MONOCY TOSIS. Blood monocytes/100 leukocyt esOrdered By: Howard Zimmerman on 02-21-2023 Monocytes/100 WBC (Bld) 9.5 % 0-10 [facility] Blood platelet mean volumeOr dered By: Howard Zimmerman on 02-21-2023 Platelet mean volume (Bld) [Entitic vol] 9.5 fL 6.2-12.0 [facility] Determination of erythrocyte mean corpuscular volume (MCV)Ordered By: Howard Zimmerman on 02-21-2023 MCV (RBC) [Entitic vol] 94.8 fL 81-99 [facility] Hematocrit Auto (Bld) [Volum e fraction]Ordered By: Howard Zimmerman on 02-21-2023 Hematocrit (Bld) [Volume fraction] 40.3 % 37-47 [facility] - Chemistry and C hemistry - challengeOrdered By: [facility] Erasmo on 02-21-2023 ALP [Catalytic activity/Vol] 110 U/L 45-117 [facility] ALT [Catalytic activity/Vol] 13 U/L 13-56 [facility] CO2 [Moles/Vol] 28.0 mmol/L 21.0-32.0 [facility] Globulin (S) [Mass/Vol] 3.5 g/dL 2.2-4.2 [facility] Urea nitrogen/Creatinine [Mass ratio] 17.1 mg/mg 10-20 [facility] - Hematology and Cell countsOrdered By: Howard Zimmerman on 02-21-2023 Erythrocyte distribution width (RBC) [Entitic vol] 46.6 fL 35.1-43.9 [facility] Erythrocyte distribution width (RBC) [Ratio] 13.4 % 11.6-14.6 [facility] Immature granulocytes/100 WBC (Bld) 0.400 % 0.0-0.9 [facility] Comment on above: IG% - Immature Granu locytes (promyelocytes, myelocytes and metamyelocytes) > 1% indicates that a LEFT SHIFT is Present. MCH (RBC) [Entitic mass] 29.9 pg 27.0-32.0 [facility] Nucleated RBC/100 WBC (Bld) [Ratio] 0 % 0-5 [facility] MCHC Auto (RBC) [Mass/Vol]Or dered By: Howard Zimmerman on 02-21-2023 MCHC (RBC) [Mass/Vol] 31.5 g/dL 32-36 [facility] No Panel InformationOrdered By: Howard Zimmerman on 02-21-2023 Estimated GFR (MDRD) Amer 53 mL/min >60 [facility] Comment on above: GFR Calc Estimated GFR (MDRD) Non-Af Amer 44 mL/min >60 [facility] Comment on above: Non- GFR Calc Thyroid Stimulating Hormone (TSH) 2.25 uIU/mL 0.358-3.74 [facility] Vitamin D 25-Hydroxy 57.4 ng/mL [facility] Comment on above: Vitamin D 25(OH) Sta tus Range Deficiency <20 ng/mL (50nmol/L) Insufficiency 20 - 30 ng/mL (50 - 75 nmol/L) Sufficiency 30 - 100 ng/mL (75 - 250 nmol/L) Toxicity >100 ng/mL (>250 nmol/L) Platelets bldOrdered By: Howard Zimmerman on 02-21-2023 Platelets (Bld) [#/Vol] 372 10*3/uL 150-450 [facility] Review by pathologistOrdered By: Howard Zimmerman on 02-21-2023 Pathologist review Porter (Unsp spec) [Interp] Reviewed [facility] Comment on above: Previous reported re sult: Heide mckenna Edited by: RGOOD on 02/22/23:1321Leukocytosis.Clinical correlation necessary.Nilton Flaherty M.D. 02/22/23 AMENDED REPORT 02/22/23 1321 PATH REV previously reported as: Heide mckenna Serum or plasma albumin fran urement (mass/volume)Ordered By: Howard Zimmerman on 02-21-2023 Albumin [Mass/Vol] 3.6 g/dL 3.2-5.0 [facility] Serum or plasma albumin/glob ulin mass ratioOrdered By: Howard Zimmerman on 02-21-2023 Albumin/Globulin [Mass ratio] 1.0 {ratio} 0.9-2.4 [facility] Serum or plasma calcium fran urement (mass/volume)Ordered By: Howard Zimmerman on 02-21-2023 Calcium [Mass/Vol] 9.1 mg/dL 8.5-10.1 [facility] Serum or plasma creatinine m easurement (mass/volume)Ordered By: Howard Zimmerman on 02-21-2023 Creatinine [Mass/Vol] 1.23 mg/dL 0.55-1.02 [facility] Comment on above: The validity of the calculated GFR & GFRAA in patients over 70 years has not been determined. Clinical correlation is essential. Serum or plasma urea nitroge n measurement (mass/volume)Ordered By: Howard Zimmerman on 02-21-2023 Urea nitrogen [Mass/Vol] 21 mg/dL 7-18 [facility] Thin prep Papanicolaou smear with manual screeningOrdered By: Howard Zimmerman on 02-21-2023 Thin prep Papanicolaou smear with manual screening 28 U/L 15 [facility] Thin prep Papanicolaou smear with manual screening 7 5-15 [facility] Basophil percentageOrdered B y: Gonzalez Garza on 01-16-2023 Cholesterol [Mass/Vol] 187 mg/dL <200 [facility] Comment on above: <200 mg/dL Desirable 200-240 mg/dL Borderline >240 mg/dL High Risk Triglyceride [Mass/Vol] 129 mg/dL <199 [facility] Comment on above: The drugs N-Acetylcy steine and Metamizole may falsely depress this assay.Serum Triglycerides Reference Interval Normal <150 mg/dL Borderline high 150 - 199 mg/dL High 200 - 499 mg/dL Very High > or = 500 mg/dL Serum or plasma cholesterol in HDL measurement (mass/volume)Ordered By: Gonzalez Garza on 01-16-2023 Cholesterol in HDL [Mass/Vol] 59 mg/dL >40 [facility] Comment on above: The drugs N-Acetylcy steine and Metamizole may falsely depress this assay. Reference Range HDL <40 mg/dL Low HDL Cholesterol HDL >or= 60 mg/dL High HDL Cholesterol Serum or plasma cholesterol in VLDL measurement (mass/volume)Ordered By: Gonzalez Garza on 01-16-2023 Cholesterol in VLDL [Mass/Vol] 26 mg/dL 5-40 [facility] Serum or plasma low density lipoprotein (LDL) cholesterol measurement (mass/volume)Ordered By: Gonzalez Garza on 01-16-2023 Cholesterol in LDL [Mass/Vol] 102 mg/dL 0-130 [facility] Absolute lymphocyte countOrd ered By: Stephanie Gonzalez on 01-15-2023 Lymphocytes Auto (Unsp spec) [#/Vol] 4.97 10*3/uL 0.83-4.51 [facility] Basophil percentageOrdered B y: Stephanie Gonzalez on 01-15-2023 Basophils/100 WBC (Bld) 2.4 % 0-1 [facility] Chloride [Moles/Vol] 102 mmol/L 98-107 [facility] Eosinophils/100 WBC (Bld) 1.3 % 0-5 [facility] Glucose [Mass/Vol] 153 mg/dL 74-106 [facility] Comment on above: Fasting Glucose resu lt greater than or equal to 126 mg/dL suggests DIABETES MELLITUS per A.D.A. criteria. Neutrophils (Bld) [#/Vol] 5.6 10*3/uL 2.0-7.7 [facility] Neutrophils/100 WBC (Bld) 45.8 % 47-70 [facility] Potassium [Moles/Vol] 3.9 mmol/L 3.5-5.1 [facility] Sodium [Moles/Vol] 134 mmol/L 136-145 [facility] WBC (Bld) [#/Vol] 12.2 10*3/uL 4.4-11.0 [facility] Blood erythrocytes count (nu mber/volume)Ordered By: Stephanie Gonzalez on 01-15-2023 RBC (Bld) [#/Vol] 3.67 10*6/uL 4.2-5.4 [facility] Blood hemoglobin measurement (mass/volume)Ordered By: Stephanie Gonzalez on 01-15-2023 Hemoglobin (Bld) [Mass/Vol] 11.4 g/dL 12.0-15.0 [facility] Blood lymphocytes/100 leukoc ytesOrdered By: Stephanie Gonzalez on 01-15-2023 Lymphocytes/100 WBC (Bld) 40.9 % 19-41 [facility] Blood monocytes/100 leukocyt esOrdered By: Stephanie Gonzalez on 01-15-2023 Monocytes/100 WBC (Bld) 9.2 % 0-10 [facility] Blood platelet mean volumeOr dered By: Stephanie Gonzalez on 01-15-2023 Platelet mean volume (Bld) [Entitic vol] 9.0 fL 6.2-12.0 [facility] Determination of erythrocyte mean corpuscular volume (MCV)Ordered By: Stephanie Gonzalez on 01-15-2023 MCV (RBC) [Entitic vol] 93.7 fL 81-99 [facility] Hematocrit Auto (Bld) [Volum e fraction]Ordered By: Stephanie Gonzalez on 01-15-2023 Hematocrit (Bld) [Volume fraction] 34.4 % 37-47 [facility] INR in Blood by Coagulation assayOrdered By: Stephanie Gonzalez on 01-15-2023 INR Coag (Bld) [Relative time] 1.1 {INR} [facility] Laboratory - Chemistry and C hemistry - challengeOrdered By: Stephanie Gonzalez on 01-15-2023 CO2 [Moles/Vol] 29.0 mmol/L 21.0-32.0 [facility] Urea nitrogen/Creatinine [Mass ratio] 15.8 mg/mg 10-20 [facility] - CoagulationOrde red By: Stephanie Gonzalez on 01-15-2023 aPTT Coag (Bld) [Time] 25.4 s 24.1-36.2 [facility] PT Coag (PPP) [Time] 14.1 s 11.7-14.9 [facility] Laboratory - Hematology and Cell countsOrdered By: Stephanie Gonzalez on 01-15-2023 Erythrocyte distribution width (RBC) [Entitic vol] 46.2 fL 35.1-43.9 [facility] Erythrocyte distribution width (RBC) [Ratio] 13.4 % 11.6-14.6 [facility] Immature granulocytes/100 WBC (Bld) 0.400 % 0.0-0.9 [facility] Comment on above: IG% - Immature Granu locytes (promyelocytes, myelocytes and metamyelocytes) > 1% indicates that a LEFT SHIFT is Present. MCH (RBC) [Entitic mass] 31.1 pg 27.0-32.0 [facility] Nucleated RBC/100 WBC (Bld) [Ratio] 0 % 0-5 [facility] MCHC Auto (RBC) [Mass/Vol]Or dered By: Stephanie Gonzalez on 01-15-2023 MCHC (RBC) [Mass/Vol] 33.1 g/dL 32-36 [facility] No Panel InformationOrdered By: Stephanie Gonzalez on 01-15-2023 Estimated Creatinine Clearance Calc 21.86 ml/min [facility] Estimated GFR (MDRD) Amer 49 mL/min >60 [facility] Comment on above: GFR Calc Estimated GFR (MDRD) Non-Af Amer 40 mL/min >60 [facility] Comment on above: Non- GFR Calc Troponin I High Sensitivity 5 pg/mL 3.0-54.0 [facility] Comment on above: Please Note: New Shreya t Units and Gender Specific Reference Ranges. For more information see Policy Stat Procedure Belk High Sensitivity Troponin (TNIH) and attachments. Platelets bldOrdered By: Ary Gonzalez on 01-15-2023 Platelets (Bld) [#/Vol] 313 10*3/uL 150-450 [facility] Serum or plasma calcium fran urement (mass/volume)Ordered By: Stephanie Gonzalez on 01-15-2023 Calcium [Mass/Vol] 8.2 mg/dL 8.5-10.1 [facility] Serum or plasma creatinine m easurement (mass/volume)Ordered By: Stephanie Gonzalez on 01-15-2023 Creatinine [Mass/Vol] 1.33 mg/dL 0.55-1.02 [facility] Comment on above: The validity of the calculated GFR & GFRAA in patients over 70 years has not been determined. Clinical correlation is essential. Serum or plasma urea nitroge n measurement (mass/volume)Ordered By: Stephanie Gonzalez on 01-15-2023 Urea nitrogen [Mass/Vol] 21 mg/dL 7-18 [facility] Thin prep Papanicolaou smear with manual screeningOrdered By: Stephanie Gonzalez on 01-15-2023 Thin prep Papanicolaou smear with manual screening 3 5-15 [facility] COVID-19 virus antigen assay Ordered By: Dr. Zimmerman on 12-08-2022 SARS-CoV-2 (COVID-19) Ag IA.rapid Ql (Resp) Not detected Not Detect [facility] Comment on above: Normal Reference Ran [...] Types A,B Direct FA (ARIANNA) Influenzae A [facility] No Panel InformationOrdered By: Dr. Zimmerman on 12-08-2022 Influenza Types A,B Direct FA (ARIANNA) Influenzae A [facility] RSV Ag EIAOrdered By: Howard almaraz on 12-08-2022 RSV Ag Immune stain Ql (Tiss) [facility] RSV Ag EIAOrdered By: Dr. Rikki almaraz on 12-08-2022 RSV Ag Immune stain Ql (Tiss) [facility] No Panel InformationOrdered By: Dr. Cobb on 08-30-2022 Miscellaneous Test See comment [facility] Comment on above: Sent directly to [facility] per ordering physician. Absolute lymphocyte countOrd ered By: Dr. Pinon on 08-29-2022 Lymphocytes Auto (Unsp spec) [#/Vol] 7.48 10*3/uL 0.83-4.51 [facility] Basophil percentageOrdered B y: Dr. Pinon on 08-29-2022 Basophil percentage 3.9 mg/dL 2.5-4.9 [facility] Basophils/100 WBC (Bld) 2.8 % 0-1 [facility] Bilirubin [Mass/Vol] 0.40 mg/dL 0.20-1.00 [facility] Comment on above: For patients on eltr ombopag therapy, use of Dimension Belk TBIL is not recommended. Chloride [Moles/Vol] 104 mmol/L 98-107 [facility] Eosinophils/100 WBC (Bld) 2.7 % 0-5 [facility] Glucose [Mass/Vol] 94 mg/dL 74-106 [facility] Neutrophils (Bld) [#/Vol] 4.9 10*3/uL 2.0-7.7 [facility] Neutrophils/100 WBC (Bld) 33.6 % 47-70 [facility] Potassium [Moles/Vol] 4.0 mmol/L 3.5-5.1 [facility] Protein [Mass/Vol] 7.2 g/dL 6.4-8.2 [facility] Sodium [Moles/Vol] 140 mmol/L 136-145 [facility] WBC (Bld) [#/Vol] 14.7 10*3/uL 4.4-11.0 [facility] Blood erythrocytes count (nu mber/volume)Ordered By: Dr. Pinon on 08-29-2022 RBC (Bld) [#/Vol] 4.30 10*6/uL 4.2-5.4 [facility] Blood hemoglobin measurement (mass/volume)Ordered By: Dr. Pinon on 08-29-2022 Hemoglobin (Bld) [Mass/Vol] 13.1 g/dL 12.0-15.0 [facility] Blood lymphocytes/100 leukoc ytesOrdered By: Dr. Pinon on 08-29-2022 Lymphocytes/100 WBC (Bld) 50.9 % 19-41 [facility] Blood manual differential co mment interpretation (narrative result)Ordered By: Dr. Pinon on 08-29-2022 Manual differential comment Porter (Bld) [Interp] SCANNED [facility] Comment on above: LYMPHOCYTOSIS NOTED Blood monocytes/100 leukocyt esOrdered By: [address] Pinon on 08-29-2022 Monocytes/100 WBC (Bld) 9.8 % 0-10 [facility] Blood platelet mean volumeOr dered By: Dr. Pinon on 08-29-2022 Platelet mean volume (Bld) [Entitic vol] 10.3 fL 6.2-12.0 [facility] Determination of erythrocyte mean corpuscular volume (MCV)Ordered By: Dr. Pinon on 08-29-2022 MCV (RBC) [Entitic vol] 95.3 fL 81-99 [facility] Hematocrit Auto (Bld) [Volum e fraction]Ordered By: Dr. Pinon on 08-29-2022 Hematocrit (Bld) [Volume fraction] 41.0 % 37-47 [facility] Laboratory - Chemistry and C hemistry - challengeOrdered By: Dr. Pinon on 08-29-2022 ALP [Catalytic activity/Vol] 91 U/L 45-117 [facility] ALT [Catalytic activity/Vol] 17 U/L 13-56 [facility] CO2 [Moles/Vol] 29.0 mmol/L 21.0-32.0 [facility] Globulin (S) [Mass/Vol] 3.6 g/dL 2.2-4.2 [facility] Urea nitrogen/Creatinine [Mass ratio] 17.8 mg/mg 10-20 [facility] - Hematology and Cell countsOrdered By: Dr. Pinon on 08-29-2022 Erythrocyte distribution width (RBC) [Entitic vol] 47.4 fL 35.1-43.9 [facility] Erythrocyte distribution width (RBC) [Ratio] 13.5 % 11.6-14.6 [facility] Immature granulocytes/100 WBC (Bld) 0.200 % 0.0-0.9 [facility] Comment on above: IG% - Immature Granu locytes (promyelocytes, myelocytes and metamyelocytes) > 1% indicates that a LEFT SHIFT is Present. MCH (RBC) [Entitic mass] 30.5 pg 27.0-32.0 [facility] Nucleated RBC/100 WBC (Bld) [Ratio] 0 % 0-5 [facility] MCHC Auto (RBC) [Mass/Vol]Or dered By: Dr. Pinon on 08-29-2022 MCHC (RBC) [Mass/Vol] 32.0 g/dL 32-36 [facility] No Panel InformationOrdered By: Dr. Pinon on 08-29-2022 Estimated GFR (MDRD) Amer 56 mL/min >60 [facility] Comment on above: GFR Calc Estimated GFR (MDRD) Non-Af Amer 46 mL/min >60 [facility] Comment on above: Non- GFR Calc Thyroid Stimulating Hormone (TSH) 3.01 uIU/mL 0.358-3.74 [facility] Vitamin D 25-Hydroxy 52.0 ng/mL [facility] Comment on above: Vitamin D 25(OH) Sta tus Range Deficiency <20 ng/mL (50nmol/L) Insufficiency 20 - 30 ng/mL (50 - 75 nmol/L) Sufficiency 30 - 100 ng/mL (75 - 250 nmol/L) Toxicity >100 ng/mL (>250 nmol/L) Platelets bldOrdered By: Dr. Pinon on 08-29-2022 Platelets (Bld) [#/Vol] 380 10*3/uL 150-450 [facility] Serum or plasma albumin fran urement (mass/volume)Ordered By: Dr. Pinon on 08-29-2022 Albumin [Mass/Vol] 3.6 g/dL 3.2-5.0 [facility] Serum or plasma albumin/glob ulin mass ratioOrdered By: Dr. Pinon on 08-29-2022 Albumin/Globulin [Mass ratio] 1.0 {ratio} 0.9-2.4 [facility] Serum or plasma calcium fran urement (mass/volume)Ordered By: Dr. Pinon on 08-29-2022 Calcium [Mass/Vol] 9.0 mg/dL 8.5-10.1 [facility] Serum or plasma creatinine m easurement (mass/volume)Ordered By: Dr. Pinon on 08-29-2022 Creatinine [Mass/Vol] 1.18 mg/dL 0.55-1.02 [facility] Comment on above: The validity of the calculated GFR & GFRAA in patients over 70 years has not been determined. Clinical correlation is essential. Serum or plasma urea nitroge n measurement (mass/volume)Ordered By: Dr. Pinon on 08-29-2022 Urea nitrogen [Mass/Vol] 21 mg/dL 7-18 [facility] Thin prep Papanicolaou smear with manual screeningOrdered By: Dr. Pinon on 08-29-2022 Thin prep Papanicolaou smear with manual screening 34 U/L 15-37 [facility] Thin prep Papanicolaou smear with manual screening 7 5-15 [facility] CNTHERAPYon 07-18-2022 CNTHERAPY OT/PT/Speech Visit (LDPT) KAYLENE HAYNES ([id number]) 1935 F Date Time Provider Department 07/18/22 [...] of Care: created on 07/18/22 through 09/16/22 [place] in home exercise program. Patient will demonstrate [...] Planned: 8 Planned Treatment Interventions: Therapeutic exercise (70265), Neuromuscular re-education (07477), Therapeutic activities (98004), Patient/Family/Caregiv er Education, Gait Training (77943) PLAN FOR NEXT VISIT: pt would like [...] Retired Recreation / Current Exercise: exercises at [facility] 3 days/week AND goes to Parkinsons group exercise class 2 days/week at [facility] Home Environment Patient Lives With: [...] is th (more content not included)... Normal [facility] Fungus cultureOrdered By: Dr Liu Zimmerman on 07-06-2022 Fungus identified Cx Nom (Unsp spec) [facility] Fungus stainOrdered By: Dr. Zimmerman on 07-06-2022 Fungus identified Fungus stain Nom (Unsp spec) [facility] GLEN SCREENINGon 06-30-2022 [facility] No Panel InformationOrdered By: Dr. Zimmerman on 06-01-2022 Methicillin-Resist S.aureus DNA PCR Negative Negative [facility] Staphylococcus aureus DNA de tection by probe and target amplification methodOrdered By: Dr. Zimmerman on 06-01-2022 S. aureus DNA DEONTE+probe Ql (Unsp spec) Negative Negative [facility] Absolute lymphocyte countOrd ered By: Dr. Zimmerman on 05-25-2022 Lymphocytes Auto (Unsp spec) [#/Vol] 6.59 10*3/uL 0.83-4.51 [facility] Basophil percentageOrdered B y: Dr. Zimmerman on 05-25-2022 Basophils/100 WBC (Bld) 2.5 % 0-1 [facility] Bilirubin [Mass/Vol] 0.40 mg/dL 0.20-1.00 [facility] Comment on above: For patients on eltr ombopag therapy, use of Dimension Belk TBIL is not recommended. Chloride [Moles/Vol] 102 mmol/L 98-107 [facility] Eosinophils/100 WBC (Bld) 1.9 % 0-5 [facility] Glucose [Mass/Vol] 97 mg/dL 74-106 [facility] Neutrophils (Bld) [#/Vol] 7.1 10*3/uL 2.0-7.7 [facility] Neutrophils/100 WBC (Bld) 43.8 % 47-70 [facility] Potassium [Moles/Vol] 4.2 mmol/L 3.5-5.1 [facility] Protein [Mass/Vol] 6.8 g/dL 6.4-8.2 [facility] Sodium [Moles/Vol] 138 mmol/L 136-145 [facility] WBC (Bld) [#/Vol] 16.2 10*3/uL 4.4-11.0 [facility] Blood erythrocytes count (nu mber/volume)Ordered By: Dr. Zimmerman on 05-25-2022 RBC (Bld) [#/Vol] 3.96 10*6/uL 4.2-5.4 [facility] Blood hemoglobin measurement (mass/volume)Ordered By: Dr. Zimmerman on 05-25-2022 Hemoglobin (Bld) [Mass/Vol] 12.5 g/dL 12.0-15.0 [facility] Blood lymphocytes/100 leukoc ytesOrdered By: Dr. Zimmerman on 05-25-2022 Lymphocytes/100 WBC (Bld) 40.8 % 19-41 [facility] Blood manual differential co mment interpretation (narrative result)Ordered By: Dr. Zimmerman on 05-25-2022 Manual differential comment Porter (Bld) [Interp] SCANNED [facility] Comment on above: LYMPHOCYTOSIS NOTEDM ONOCYTOSIS NOTED Blood monocytes/100 leukocyt esOrdered By: [address] Zimmerman on 05-25-2022 Monocytes/100 WBC (Bld) 10.6 % 0-10 [facility] Blood platelet mean volumeOr dered By: Dr. Zimmerman on 05-25-2022 Platelet mean volume (Bld) [Entitic vol] 9.5 fL 6.2-12.0 [facility] Determination of erythrocyte mean corpuscular volume (MCV)Ordered By: Dr. Zimmerman on 05-25-2022 MCV (RBC) [Entitic vol] 95.5 fL 81-99 [facility] Hematocrit Auto (Bld) [Volum e fraction]Ordered By: Dr. Zimmerman on 05-25-2022 Hematocrit (Bld) [Volume fraction] 37.8 % 37-47 [facility] Laboratory - Chemistry and C hemistry - challengeOrdered By: Dr. Zimmerman on 05-25-2022 ALP [Catalytic activity/Vol] 86 U/L 45-117 [facility] ALT [Catalytic activity/Vol] 11 U/L 13-56 [facility] CO2 [Moles/Vol] 31.0 mmol/L 21.0-32.0 [facility] Globulin (S) [Mass/Vol] 3.5 g/dL 2.2-4.2 [facility] Urea nitrogen/Creatinine [Mass ratio] 16.0 mg/mg 10-20 [facility] Laboratory - Hematology and Cell countsOrdered By: Dr. Zimmerman on 05-25-2022 Erythrocyte distribution width (RBC) [Entitic vol] 48.0 fL 35.1-43.9 [facility] Erythrocyte distribution width (RBC) [Ratio] 13.6 % 11.6-14.6 [facility] Immature granulocytes/100 WBC (Bld) 0.400 % 0.0-0.9 [facility] Comment on above: IG% - Immature Granu locytes (promyelocytes, myelocytes and metamyelocytes) > 1% indicates that a LEFT SHIFT is Present. MCH (RBC) [Entitic mass] 31.6 pg 27.0-32.0 [facility] Nucleated RBC/100 WBC (Bld) [Ratio] 0 % 0-5 [facility] MCHC Auto (RBC) [Mass/Vol]Or dered By: Dr. Zimmerman on 05-25-2022 MCHC (RBC) [Mass/Vol] 33.1 g/dL 32-36 [facility] No Panel InformationOrdered By: Dr. Zimmerman on 05-25-2022 Estimated GFR (MDRD) Amer 50 mL/min >60 [facility] Comment on above: GFR Calc Estimated GFR (MDRD) Non-Af Amer 41 mL/min >60 [facility] Comment on above: Non- GFR Calc Thyroid Stimulating Hormone (TSH) 2.03 uIU/mL 0.358-3.74 [facility] Vitamin D 25-Hydroxy 37.9 ng/mL [facility] Comment on above: Vitamin D 25(OH) Sta tus Range Deficiency <20 ng/mL (50nmol/L) Insufficiency 20 - 30 ng/mL (50 - 75 nmol/L) Sufficiency 30 - 100 ng/mL (75 - 250 nmol/L) Toxicity >100 ng/mL (>250 nmol/L) Platelets bldOrdered By: Dr. Zimmerman on 05-25-2022 Platelets (Bld) [#/Vol] 376 10*3/uL 150-450 [facility] Review by pathologistOrdered By: Dr. Zimmerman on 05-25-2022 Pathologist review Porter (Unsp spec) [Interp] Reviewed [facility] Comment on above: Previous reported re sult: Heide mckenna Edited by: BINA on 05/26/22:1207Leukocytosis. Clinical correlation necessary.Nilton Flaherty M.D. 05/26/22 AMENDED REPORT 05/26/22 1207 PATH REV previously reported as: Heide mckenna Serum or plasma albumin fran urement (mass/volume)Ordered By: Dr. Zimmerman on 05-25-2022 Albumin [Mass/Vol] 3.3 g/dL 3.2-5.0 [facility] Serum or plasma albumin/glob ulin mass ratioOrdered By: Dr. Zimmerman on 05-25-2022 Albumin/Globulin [Mass ratio] 0.9 {ratio} 0.9-2.4 [facility] Serum or plasma calcium fran urement (mass/volume)Ordered By: Dr. Zimmerman on 05-25-2022 Calcium [Mass/Vol] 9.0 mg/dL 8.5-10.1 [facility] Serum or plasma creatinine m easurement (mass/volume)Ordered By: Dr. Zimmerman on 05-25-2022 Creatinine [Mass/Vol] 1.31 mg/dL 0.55-1.02 [facility] Comment on above: The validity of the calculated GFR & GFRAA in patients over 70 years has not been determined. Clinical correlation is essential. Serum or plasma urea nitroge n measurement (mass/volume)Ordered By: Dr. Zimmerman on 05-25-2022 Urea nitrogen [Mass/Vol] 21 mg/dL 7-18 [facility] Thin prep Papanicolaou smear with manual screeningOrdered By: Dr. Zimmerman on 05-25-2022 Thin prep Papanicolaou smear with manual screening 25 U/L 15-37 [facility] Thin prep Papanicolaou smear with manual screening 5 5-15 [facility] Absolute lymphocyte countOrd ered By: Bart Bhandari on 05-12-2022 Lymphocytes Auto (Unsp spec) [#/Vol] 4.67 10*3/uL 0.83-4.51 [facility] Basophil percentageOrdered B y: Bart Bhandari on 05-12-2022 Basophils/100 WBC (Bld) 1.5 % 0-1 [facility] Chloride [Moles/Vol] 103 mmol/L 98-107 [facility] Eosinophils/100 WBC (Bld) 0.3 % 0-5 [facility] Glucose [Mass/Vol] 106 mg/dL 74-106 [facility] Comment on above: Fasting Glucose resu lt from 100 to 125 mg/dL suggests IMPAIRED HOMEOSTASIS per A.D.A. criteria. Neutrophils (Bld) [#/Vol] 9.3 10*3/uL 2.0-7.7 [facility] Neutrophils/100 WBC (Bld) 59.5 % 47-70 [facility] Potassium [Moles/Vol] 4.2 mmol/L 3.5-5.1 [facility] Sodium [Moles/Vol] 140 mmol/L 136-145 [facility] WBC (Bld) [#/Vol] 15.7 10*3/uL 4.4-11.0 [facility] Blood erythrocytes count (nu mber/volume)Ordered By: Bart Bhandari on 05-12-2022 RBC (Bld) [#/Vol] 4.06 10*6/uL 4.2-5.4 [facility] Blood hemoglobin measurement (mass/volume)Ordered By: Bart Bhandari on 05-12-2022 Hemoglobin (Bld) [Mass/Vol] 12.8 g/dL 12.0-15.0 [facility] Blood lymphocytes/100 leukoc ytesOrdered By: Bart Bhandari on 05-12-2022 Lymphocytes/100 WBC (Bld) 29.8 % 19-41 [facility] Blood monocytes/100 leukocyt esOrdered By: Bart Bhandari on 05-12-2022 Monocytes/100 WBC (Bld) 8.5 % 0-10 [facility] Blood platelet mean volumeOr dered By: Bart Bhandari on 05-12-2022 Platelet mean volume (Bld) [Entitic vol] 9.1 fL 6.2-12.0 [facility] Determination of erythrocyte mean corpuscular volume (MCV)Ordered By: Bart Bhandari on 05-12-2022 MCV (RBC) [Entitic vol] 96.1 fL 81-99 [facility] Hematocrit Auto (Bld) [Volum e fraction]Ordered By: Bart Bhandari on 05-12-2022 Hematocrit (Bld) [Volume fraction] 39.0 % 37-47 [facility] - Chemistry and C hemistry - challengeOrdered By: Bart Bhandari on 05-12-2022 CO2 [Moles/Vol] 32.0 mmol/L 21.0-32.0 [facility] Urea nitrogen/Creatinine [Mass ratio] 17.1 mg/mg 10-20 [facility] - Hematology and Cell countsOrdered By: Bart Bhandari on 05-12-2022 Erythrocyte distribution width (RBC) [Entitic vol] 48.5 fL 35.1-43.9 [facility] Erythrocyte distribution width (RBC) [Ratio] 13.6 % 11.6-14.6 [facility] Immature granulocytes/100 WBC (Bld) 0.400 % 0.0-0.9 [facility] Comment on above: IG% - Immature Granu locytes (promyelocytes, myelocytes and metamyelocytes) > 1% indicates that a LEFT SHIFT is Present. MCH (RBC) [Entitic mass] 31.5 pg 27.0-32.0 [facility] Nucleated RBC/100 WBC (Bld) [Ratio] 0 % 0-5 [facility] MCHC Auto (RBC) [Mass/Vol]Or dered By: Bart Bhandari on 05-12-2022 MCHC (RBC) [Mass/Vol] 32.8 g/dL 32-36 [facility] No Panel InformationOrdered By: Bart Bhandari on 05-12-2022 Troponin I High Sensitivity 5 pg/mL 3.0-54.0 [facility] Comment on above: Please Note: New Shreya t Units and Gender Specific Reference Ranges. For more information see Policy Stat Procedure Belk High Sensitivity Troponin (TNIH) and attachments. Estimated Creatinine Clearance Calc 25.17 ml/min [facility] Estimated GFR (MDRD) Amer 56 mL/min >60 [facility] Comment on above: GFR Calc Estimated GFR (MDRD) Non-Af Amer 47 mL/min >60 [facility] Comment on above: Non- GFR Calc Platelets bldOrdered By: Eliana Bhandari on 05-12-2022 Platelets (Bld) [#/Vol] 382 10*3/uL 150-450 [facility] Serum or plasma calcium fran urement (mass/volume)Ordered By: Bart Bhandari on 05-12-2022 Calcium [Mass/Vol] 9.6 mg/dL 8.5-10.1 [facility] Serum or plasma creatinine m easurement (mass/volume)Ordered By: Bart Bhandari on 05-12-2022 Creatinine [Mass/Vol] 1.17 mg/dL 0.55-1.02 [facility] Comment on above: The validity of the calculated GFR & GFRAA in patients over 70 years has not been determined. Clinical correlation is essential. Serum or plasma urea nitroge n measurement (mass/volume)Ordered By: Bart Bhandari on 05-12-2022 Urea nitrogen [Mass/Vol] 20 mg/dL 7-18 [facility] Thin prep Papanicolaou smear with manual screeningOrdered By: Bart Bhandari on 05-12-2022 Thin prep Papanicolaou smear with manual screening 5 5-15 [facility] Basophil percentageOrdered B y: Dr. Zimmerman on 04-19-2022 Chloride [Moles/Vol] 106 mmol/L 98-107 [facility] Glucose [Mass/Vol] 89 mg/dL 74-106 [facility] Potassium [Moles/Vol] 4.4 mmol/L 3.5-5.1 [facility] Sodium [Moles/Vol] 138 mmol/L 136-145 [facility] Laboratory - Chemistry and C hemistry - challengeOrdered By: Dr. Zimmerman on 04-19-2022 CO2 [Moles/Vol] 29.0 mmol/L 21.0-32.0 [facility] Urea nitrogen/Creatinine [Mass ratio] 16.4 mg/mg 10-20 [facility] No Panel InformationOrdered By: Dr. Zimmerman on 04-19-2022 Estimated GFR (MDRD) Amer 54 mL/min >60 [facility] Comment on above: GFR Calc Estimated GFR (MDRD) Non-Af Amer 44 mL/min >60 [facility] Comment on above: Non- GFR Calc Serum or plasma calcium fran urement (mass/volume)Ordered By: Dr. Zimmerman on 04-19-2022 Calcium [Mass/Vol] 9.0 mg/dL 8.5-10.1 [facility] Serum or plasma creatinine m easurement (mass/volume)Ordered By: Dr. Zimmerman on 04-19-2022 Creatinine [Mass/Vol] 1.22 mg/dL 0.55-1.02 [facility] Comment on above: The validity of the calculated GFR & GFRAA in patients over 70 years has not been determined. Clinical correlation is essential. Serum or plasma urea nitroge n measurement (mass/volume)Ordered By: Dr. Zimmerman on 04-19-2022 Urea nitrogen [Mass/Vol] 20 mg/dL 7-18 [facility] Thin prep Papanicolaou smear with manual screeningOrdered By: Dr. Zimmerman on 04-19-2022 Thin prep Papanicolaou smear with manual screening 3 5-15 [facility] Laboratory - Microbiology an d Antimicrobial susceptibilityOrdered By: Dr. Zimmerman on 04-07-2022 SARS-CoV-2 (COVID-19) RNA DEONTE+probe Ql (Unsp spec) Not detected Not Detect [facility] Comment on above: Normal Reference Ran ge: Not DetectedMethod:(RT-PCR) real-time reverse transcriptase PCRLuminex THOMAS Instrument*The Food and Drug Administration (FDA) has issued an Emergency Use Authorization (EAU) for the [employer] SARS-CoV-2 Assay for the rapid detection of [...] 04-07-2022 Influenza Types A,B Direct FA (ARIANNA) [facility] RSV Ag EIAOrdered By: Dr. Rikki almaraz on 04-07-2022 RSV Ag Immune stain Ql (Tiss) [facility] Laboratory - Microbiology an d Antimicrobial susceptibilityon 03-30-2022 SARS-CoV-2 (COVID-19) RNA DEONTE+probe Ql (Unsp spec) Not detected [facility] No Panel Informationon 03-30 POC Nasal Swab Influenza A,B Not detected [facility] POC Nasal Swab RSV Not detected [facility] Laboratory - Microbiology an d Antimicrobial susceptibilityon 03-07-2022 SARS-CoV-2 (COVID-19) RNA DEONTE+probe Ql (Unsp spec) Not detected Not Detect [facility] Work Phone: Comment on above: Normal [...] Auto (Unsp spec) [#/Vol] 8.34 10*3/uL 0.83-4.51 [facility] Work Phone: Basophil percentageon 2021 Basophils/100 WBC (Bld) 2.3 % 0-1 [facility] Work Phone: Bilirubin [Mass/Vol] 0.50 mg/dL 0.20-1.00 [facility] Work Phone: Comment on above: For patients on eltr ombopag therapy, use of Dimension Belk TBIL is not recommended. Chloride [Moles/Vol] 103 mmol/L 98-107 [facility] Work Phone: Eosinophils/100 WBC (Bld) 1.1 % 0-5 [facility] Work Phone: Glucose [Mass/Vol] 105 mg/dL 74-106 [facility] Work Phone: Comment on above: Fasting Glucose resu lt from 100 to 125 mg/dL suggests IMPAIRED HOMEOSTASIS per A.D.A. criteria. Neutrophils (Bld) [#/Vol] 7.4 10*3/uL 2.0-7.7 [facility] Work Phone: Neutrophils/100 WBC (Bld) 42.2 % 47-70 [facility] Work Phone: Potassium [Moles/Vol] 4.3 mmol/L 3.5-5.1 [facility] Work Phone: Protein [Mass/Vol] 7.3 g/dL 6.4-8.2 [facility] Work Phone: Sodium [Moles/Vol] 140 mmol/L 136-145 [facility] Work Phone: WBC (Bld) [#/Vol] 17.4 10*3/uL 4.4-11.0 [facility] Work Phone: Blood erythrocytes count (nu mber/volume)on 03-06-2022 RBC (Bld) [#/Vol] 4.15 10*6/uL 4.2-5.4 [facility] Work Phone: Blood hemoglobin measurement (mass/volume)on 03-06-2022 Hemoglobin (Bld) [Mass/Vol] 12.7 g/dL 12.0-15.0 [facility] Work Phone: Blood lymphocytes/100 leukoc yteson 03-06-2022 Lymphocytes/100 WBC (Bld) 48.0 % 19-41 [facility] Work Phone: Blood manual differential co mment interpretation (narrative result)on 03-06-2022 Manual differential comment Porter (Bld) [Interp] See comment [facility] Work Phone: Comment on above: LYMPHOCYTOSIS NOTED Blood monocytes/100 leukocyt eson 03-06-2022 Monocytes/100 WBC (Bld) 6.1 % 0-10 [facility] Work Phone: Blood platelet adequacy dete ction by light microscopyon 03-06-2022 Platelets LM Ql (Bld) ADEQUATE ADEQ [facility] Work Phone: Blood platelet mean volumeon 03-06-2022 Platelet mean volume (Bld) [Entitic vol] 10.3 fL 6.2-12.0 [facility] Work Phone: Determination of erythrocyte mean corpuscular volume (MCV)on 03-06-2022 MCV (RBC) [Entitic vol] 94.7 fL 81-99 [facility] Work Phone: Hematocrit Auto (Bld) [Volum e fraction]on 03-06-2022 Hematocrit (Bld) [Volume fraction] 39.3 % 37-47 [facility] Work Phone: Laboratory - Chemistry and C hemistry - challengeon 03-06-2022 ALP [Catalytic activity/Vol] 86 U/L 45-117 [facility] Work Phone: ALT [Catalytic activity/Vol] 11 U/L 13-56 [facility] Work Phone: CO2 [Moles/Vol] 31.0 mmol/L 21.0-32.0 [facility] Work Phone: Globulin (S) [Mass/Vol] 3.7 g/dL 2.2-4.2 [facility] Work Phone: Urea nitrogen/Creatinine [Mass ratio] 16.1 mg/mg 10-20 [facility] Work Phone: Laboratory - Hematology and Cell countson 03-06-2022 Erythrocyte distribution width (RBC) [Entitic vol] 47.7 fL 35.1-43.9 [facility] Work Phone: Erythrocyte distribution width (RBC) [Ratio] 13.6 % 11.6-14.6 [facility] Work Phone: Immature granulocytes/100 WBC (Bld) 0.300 % 0.0-0.9 [facility] Work Phone: Comment on above: IG% - Immature Granu locytes (promyelocytes, myelocytes and metamyelocytes) > 1% indicates that a LEFT SHIFT is Present. MCH (RBC) [Entitic mass] 30.6 pg 27.0-32.0 [facility] Work Phone: Nucleated RBC/100 WBC (Bld) [Ratio] 0 % 0-5 [facility] Work Phone: MCHC Auto (RBC) [Mass/Vol]on 03-06-2022 MCHC (RBC) [Mass/Vol] 32.3 g/dL 32-36 [facility] Work Phone: No Panel Informationon 03-06 Atypical Lymphocytes 1+ % [facility] Work Phone: Estimated GFR (MDRD) Amer 53 mL/min >60 [facility] Work Phone: Comment on above: GFR Calc Estimated GFR (MDRD) Non-Af Amer 44 mL/min >60 [facility] Work Phone: Comment on above: Non- GFR Calc Platelets bldon 03-06-2022 Platelets (Bld) [#/Vol] 338 10*3/uL 150-450 [facility] Work Phone: RBC morphologyon 03-06-2022 RBC morphology finding Nom (Bld) NORM C+C NORMAL NORM C&C [facility] Work Phone: Serum or plasma albumin fran urement (mass/volume)on 03-06-2022 Albumin [Mass/Vol] 3.6 g/dL 3.2-5.0 [facility] Work Phone: Serum or plasma albumin/glob ulin mass ratioon 03-06-2022 Albumin/Globulin [Mass ratio] 1.0 {ratio} 0.9-2.4 [facility] Work Phone: Serum or plasma calcium fran urement (mass/volume)on 03-06-2022 Calcium [Mass/Vol] 9.7 mg/dL 8.5-10.1 [facility] Work Phone: Serum or plasma creatinine m easurement (mass/volume)on 03-06-2022 Creatinine [Mass/Vol] 1.24 mg/dL 0.55-1.02 [facility] Work Phone: Comment on above: The validity of the calculated GFR & GFRAA in patients over 70 years has not been determined. Clinical correlation is essential. Serum or plasma urea nitroge n measurement (mass/volume)on 03-06-2022 Urea nitrogen [Mass/Vol] 20 mg/dL 7-18 [facility] Work Phone: Thin prep Papanicolaou smear with manual screeningon 03-06-2022 Thin prep Papanicolaou smear with manual screening 31 U/L 15-37 [facility] Work Phone: Thin prep Papanicolaou smear with manual screening 6 5-15 [facility] Work Phone: No Panel Informationon 12-22 Miscellaneous Test See comment [facility] Work Phone: Comment on above: Sent directly to [facility] per ordering physician. Absolute lymphocyte counton 11-21-2021 Lymphocytes Auto (Unsp spec) [#/Vol] 10.68 10*3/uL 0.83-4.51 [facility] Work Phone: Basophil percentageon 2021 Basophils/100 WBC (Bld) 2.7 % 0-1 [facility] Work Phone: Bilirubin [Mass/Vol] 0.40 mg/dL 0.20-1.00 [facility] Work Phone: Comment on above: For patients on eltr ombopag therapy, use of Dimension Belk TBIL is not recommended. Chloride [Moles/Vol] 104 mmol/L 98-107 [facility] Work Phone: Eosinophils/100 WBC (Bld) 2.6 % 0-5 [facility] Work Phone: [phone] Glucose [Mass/Vol] 97 mg/dL 74-106 [facility] Work Phone: Neutrophils (Bld) [#/Vol] 5.6 10*3/uL 2.0-7.7 [facility] Work Phone: Neutrophils/100 WBC (Bld) 29.6 % 47-70 [facility] Work Phone: Potassium [Moles/Vol] 4.1 mmol/L 3.5-5.1 [facility] Work Phone: Protein [Mass/Vol] 7.1 g/dL 6.4-8.2 [facility] Work Phone: Sodium [Moles/Vol] 136 mmol/L 136-145 [facility] Work Phone: [phone] WBC (Bld) [#/Vol] 19.0 10*3/uL 4.4-11.0 [facility] Work Phone: Blood erythrocytes count (nu mber/volume)on 11-21-2021 RBC (Bld) [#/Vol] 4.03 10*6/uL 4.2-5.4 [facility] Work Phone: Blood hemoglobin measurement (mass/volume)on 11-21-2021 Hemoglobin (Bld) [Mass/Vol] 12.0 g/dL 12.0-15.0 [facility] Work Phone: Blood lymphocytes/100 leukoc yteson 11-21-2021 Lymphocytes/100 WBC (Bld) 56.3 % 19-41 [facility] Work Phone: Blood manual differential co mment interpretation (narrative result)on 11-21-2021 Manual differential comment Porter (Bld) [Interp] SEE COMMENTS [facility] Work Phone: Comment on above: LYMPHOCYTOSIS NOTEDM ONOCYTOSIS NOTED Blood monocytes/100 leukocyt eson 11-21-2021 Monocytes/100 WBC (Bld) 8.5 % 0-10 [facility] Work Phone: Blood platelet adequacy dete ction by light microscopyon 11-21-2021 Platelets LM Ql (Bld) ADEQUATE ADEQ [facility] Work Phone: Blood platelet mean volumeon 11-21-2021 Platelet mean volume (Bld) [Entitic vol] 10.7 fL 6.2-12.0 [facility] Work Phone: Determination of erythrocyte mean corpuscular volume (MCV)on 11-21-2021 MCV (RBC) [Entitic vol] 92.6 fL 81-99 [facility] Work Phone: Hematocrit Auto (Bld) [Volum e fraction]on 11-21-2021 Hematocrit (Bld) [Volume fraction] 37.3 % 37-47 [facility] Work Phone: Laboratory - Chemistry and C hemistry - challengeon 11-21-2021 ALP [Catalytic activity/Vol] 136 U/L 45-117 [facility] Work Phone: ALT [Catalytic activity/Vol] 10 U/L 13-56 [facility] Work Phone: CO2 [Moles/Vol] 28.0 mmol/L 21.0-32.0 [facility] Work Phone: Globulin (S) [Mass/Vol] 3.6 g/dL 2.2-4.2 [facility] Work Phone: Urea nitrogen/Creatinine [Mass ratio] 21.5 mg/mg 10-20 [facility] Work Phone: Laboratory - Hematology and Cell countson 11-21-2021 Anisocytosis Ql (Bld) RARE [facility] Work Phone: Erythrocyte distribution width (RBC) [Entitic vol] 46.7 fL 35.1-43.9 [facility] Work Phone: Erythrocyte distribution width (RBC) [Ratio] 13.7 % 11.6-14.6 [facility] Work Phone: Immature granulocytes/100 WBC (Bld) 0.300 % 0.0-0.9 [facility] Work Phone: Comment on above: IG% - Immature Granu locytes (promyelocytes, myelocytes and metamyelocytes) > 1% indicates that a LEFT SHIFT is Present. MCH (RBC) [Entitic mass] 29.8 pg 27.0-32.0 [facility] Work Phone: Nucleated RBC/100 WBC (Bld) [Ratio] 0 % 0-5 [facility] Work Phone: MCHC Auto (RBC) [Mass/Vol]on 11-21-2021 MCHC (RBC) [Mass/Vol] 32.2 g/dL 32-36 [facility] Work Phone: Macrocytes detectionon 11-21 Macrocytes Ql (Bld) RARE [facility] Work Phone: No Panel Informationon 11-21 Atypical Lymphocytes 1+ % [facility] Work Phone: Estimated GFR (MDRD) Amer 54 mL/min >60 [facility] Work Phone: Comment on above: GFR Calc Estimated GFR (MDRD) Non-Af Amer 45 mL/min >60 [facility] Work Phone: Comment on above: Non- GFR Calc Thyroid Stimulating Hormone (TSH) 1.52 uIU/mL 0.358-3.74 [facility] Work Phone: Vitamin D 25-Hydroxy 62.6 ng/mL [facility] Work Phone: Comment on above: Vitamin D 25(OH) Sta tus Range Deficiency <20 ng/mL (50nmol/L) Insufficiency 20 - 30 ng/mL (50 - 75 nmol/L) Sufficiency 30 - 100 ng/mL (75 - 250 nmol/L) Toxicity >100 ng/mL (>250 nmol/L) Platelets bldon 11-21-2021 Platelets (Bld) [#/Vol] 267 10*3/uL 150-450 [facility] Work Phone: RBC morphologyon 11-21-2021 RBC morphology finding Nom (Bld) N CHROM NORMAL NORM C&C [facility] Work Phone: Review by pathologiston Pathologist review Porter (Unsp spec) [Interp] Reviewed [facility] Work Phone: Comment on above: Previous reported re sult: Heide mckenna Edited by: BINA on 11/22/21:1313Leukocytosis and absolute lymphocytosis.Clinical correlation necessary.Nilton Flaherty M.D. 11/22/21 AMENDED REPORT 11/22/21 1313 PATH REV previously reported as: Heide mckenna Serum or plasma albumin fran urement (mass/volume)on 11-21-2021 Albumin [Mass/Vol] 3.5 g/dL 3.2-5.0 [facility] Work Phone: Serum or plasma albumin/glob ulin mass ratioon 11-21-2021 Albumin/Globulin [Mass ratio] 1.0 {ratio} 0.9-2.4 [facility] Work Phone: Serum or plasma calcium fran urement (mass/volume)on 11-21-2021 Calcium [Mass/Vol] 8.8 mg/dL 8.5-10.1 [facility] Work Phone: Serum or plasma creatinine m easurement (mass/volume)on 11-21-2021 Creatinine [Mass/Vol] 1.21 mg/dL 0.55-1.02 [facility] Work Phone: Comment on above: The validity of the calculated GFR & GFRAA in patients over 70 years has not been determined. Clinical correlation is essential. Serum or plasma urea nitroge n measurement (mass/volume)on 11-21-2021 Urea nitrogen [Mass/Vol] 26 mg/dL 7-18 [facility] Work Phone: Thin prep Papanicolaou smear with manual screeningon 11-21-2021 Thin prep Papanicolaou smear with manual screening 34 U/L 15-37 [facility] Work Phone: Thin prep Papanicolaou smear with manual screening 4 5-15 [facility] Work Phone: PROGRESSon 05-31-2020 PROGRESS HNO ID: [id number] Author: Sridevi Solo Service: ? Author Type: [...] this time was used for counseling. Normal [facility] Basic Metabolic Panelon 12-0 Calcium [Mass/Vol] 9.4 mg/dL Normal 8.4-10.4 [facility] Comment on above: Performed By: #### B MP3, HEMOG #### [facility] [address], [place] Anion gap [Moles/Vol] 7 Normal [facility] Comment on above: Performed By: #### B MP3, HEMOG #### [facility] [email or web address] [facility] [address], [place] CO2 [Moles/Vol] 28 mmol/L Normal 22-30 [facility] Comment on above: Performed By: #### B MP3, HEMOG #### [facility] [email or web address] [facility] [address], [place] Creatinine [Mass/Vol] 0.91 mg/dL Normal 0.52-1.25 [facility] Comment on above: Performed By: #### B MP3, HEMOG #### [facility] [address] [place] [address] GFR/1.73 sq M predicted among blacks MDRD (S/P/Bld) [Vol rate/Area] mL/min/{1.73_m2} Normal >60 [facility] Comment on above: Performed By: #### B MP3, HEMOG #### [facility] [address] [place] [address] GFR/1.73 sq M predicted among non-blacks MDRD (S/P/Bld) [Vol rate/Area] 59.0 mL/min/{1.73_m2} Normal >60 [facility] Comment on above: Result Comment: Sour ce- MDRD equation with creatinine calibration to IDMS(NKDEP) eGFR not recommended for drug dose adjustment Performed By: #### B MP3, HEMOG #### [facility] [address], [place] Glucose [Mass/Vol] 90 mg/dL Normal 70-100 [facility] Comment on above: Performed By: #### B MP3, HEMOG #### [place] [address], [place] Urea nitrogen [Mass/Vol] 20 mg/dL Normal 7-20 [facility] Comment on above: Performed By: #### B MP3, HEMOG #### [facility] [address], [place] Chloride [Moles/Vol] 102 mmol/L Normal 98-107 [facility] Comment on above: Performed By: #### B MP3, HEMOG #### [facility] [address], [place] Potassium [Moles/Vol] 4.5 mmol/L Normal 3.5-5.1 [facility] Comment on above: Performed By: #### B MP3, HEMOG #### [facility] [address], [place] Sodium [Moles/Vol] 138 mmol/L Normal 135-145 [facility] Comment on above: Performed By: #### B MP3, HEMOG #### [address] [address] Anion gap [Moles/Vol] 7 mmol/L [place], [place] Calcium [Mass/Vol] 9.4 mg/dL 8.4 - 10. 4 mg/dL [place], [place] Chloride [Moles/Vol] 102 mmol/L 98 - 10 7 mmol/L [place] CO2 [Moles/Vol] 28 mmol/L 22 - 30 mmol/L [place] Creatinine [Mass/Vol] 0.91 mg/dL 0.52 - 1.25 mg/dL [place] EGFR IF NonAfrican [place]ian 59.0 mL/min >60 [place] Comment on above: Source- MDRD equatio n with creatinine calibration to IDMS(NKDEP) eGFR not recommended for drug dose adjustment GFR/1.73 sq M predicted among blacks MDRD (S/P/Bld) [Vol rate/Area] mL/min/{1.73_m2} >60 mL/min [place] Glucose [Mass/Vol] 90 mg/dL 70 - 100 mg/dL [place] Potassium [Moles/Vol] 4.5 mmol/L 3.5 - 5.1 mmol/L [place] Sodium [Moles/Vol] 138 mmol/L 135 - 145 mmol/L [place] Urea nitrogen [Mass/Vol] 20 mg/dL 7 - 20 mg/dL [place] Test Performed by [facility], [address] [place] [id number] [place], [place] CBCon 2019 Erythrocyte distribution width (RBC) [Ratio] 13.6 % 11.5 - 14.5 % [place] Hematocrit (Bld) [Volume fraction] 38.4 % 35 - 47 % [place] Hemoglobin (Bld) [Mass/Vol] 12.7 g/dL 11.7 - 16 g/dL [place] Interpretation and review of laboratory results Abnormal [place] MCH (RBC) [Entitic mass] 30.1 pg 26 - 34 pg [place] MCHC (RBC) [Mass/Vol] 33.0 % 32 - 36 % [place], [place] MCV (RBC) [Entitic vol] 91.1 fL 79 - 98 fL [place], [place] Platelet mean volume (Bld) [Entitic vol] 8.0 fL 7.4 - 10.4 fL [place] Platelets (Bld) [#/Vol] 326 10*3/uL 140 - 440 10*3/uL [place] RBC (Bld) [#/Vol] 4.21 10*6/uL 3.8 - 5.2 10*6/uL [place] WBC (Bld) [#/Vol] 11.1 10*3/uL High 3.6 - 10.7 10*3/uL [place] Test Performed by [facility], [address] [place] [id number] [place] [address] Hemogramon 2019 Erythrocyte distribution width (RBC) [Ratio] 13.6 % Normal 11.5-14.5 [facility] Comment on above: Performed By: #### B MP3, HEMOG #### [address] Hematocrit (Bld) [Volume fraction] 38.4 % Normal 35.0-47.0 [facility] Comment on above: Performed By: #### B MP3, HEMOG #### [address] Hemoglobin (Bld) [Mass/Vol] 12.7 g/dL Normal 11.7-16.0 [facility] Comment on above: Performed By: #### B MP3, HEMOG #### [address] MCH (RBC) [Entitic mass] 30.1 pg Normal 26.0-34.0 [facility] Comment on above: Performed By: #### B MP3, HEMOG #### [address] [id number] MCHC (RBC) [Mass/Vol] 33.0 % Normal 32.0-36.0 [facility] Comment on above: Performed By: #### B MP3, HEMOG #### [place] [address], [place] MCV (RBC) [Entitic vol] 91.1 fL Normal 79.0-98.0 [facility] Comment on above: Performed By: #### B MP3, HEMOG #### [place] [address], [place] Platelet mean volume (Bld) [Entitic vol] 8.0 fL Normal 7.4-10.4 [facility] Comment on above: Performed By: #### B MP3, HEMOG #### [place] [address], [place] Platelets (Bld) [#/Vol] 326 10*3/uL Normal 140-440 [facility] Comment on above: Performed By: #### B MP3, HEMOG #### [place] [address], [place] RBC (Bld) [#/Vol] 4.21 10*6/uL Normal 3.80-5.20 [facility] Comment on above: Performed By: #### B MP3, HEMOG #### [place] [address], [place] WBC (Bld) [#/Vol] 11.1 10*3/uL High 3.6-10.7 [facility] Comment on above: Performed By: #### B MP3, HEMOG #### [place] [address], [place] Replaced Document: [employer] E JORY Observationson 05-07-2017 EKG QRS axis 77 deg Invalid Interpretation Code [facility] Work Phone: [phone] Interpretation Sinus Bradycardia Lo w voltage with rightward P-axis and rotation -possible pulmonary disease. ABNORMAL Invalid Interpretation Code [facility] Work Phone: [phone] P [place] 68 deg Invalid Interpretation Code [facility] Work Phone: [phone] [place] Interval 206 ms Invalid Interpretation Code [facility] Phone: [phone] Pulse (Heart Rate) 53 /min Invalid Interpretation Code [facility] Phone: [phone] QRS Duration 100 ms Invalid Interpretation Code [facility] Work Phone: [phone] QT Interval new path ms Invalid Interpretation Code [facility] Phone: [phone] QTc Iglesias 392 ms Invalid Interpretation Code [facility] Work Phone: [phone] T [place] 20 deg Invalid Interpretation Code [facility] Work Phone: [phone] Office Visiton 01-08-2017 Documentation of current medications (procedure) Done Invalid Interpretation Code [facility] Phone: [phone] Clinical Lists Update: 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-2017 Left ventricular Ejection fraction 55 % Invalid Interpretation Code [facility] Phone: [phone] Lab Report: Basic Metabolic Profile (BMP)on 06-28-2016 Anion gap 6 mmol/L Invalid Interpretation Code 5-15 [facility] Work Phone: [phone] BUN/Creatinine Ratio 16.7 RATIO Invalid Interpretation Code 10-20 [facility] Phone: [phone] Calcium 8.6 mg/dL Invalid Interpretation Code 8.5-10.1 [facility] Work Phone: [phone] Chloride 106 mmol/L Invalid Interpretation Code 98-107 [facility] Phone: [phone] CO2 29.0 mmol/L Invalid Interpretation Code 21.0-32.0 [facility] Work Phone: [phone] Creatinine 1.02 mg/dL Invalid Interpretation Code 0.55-1.02 [facility] Phone: [phone] eGFR (non-black) 67 mL/min/{1.73_m2} Invalid Interpretation Code >60 [facility] Work Phone: [phone] eGFR (non-black) 55 mL/min/{1.73_m2} Low >60 [facility] Work Phone: [phone] Glucose mass conc 85 mg/dL Invalid Interpretation Code 70-110 [facility] Work Phone: Potassium molar conc 4.0 mmol/L Invalid Interpretation Code 3.5-5.1 [facility] Work Phone: [phone] Sodium 141 mmol/L Invalid Interpretation Code 136-145 [employer] [employer] Work Phone: [phone] Urea nitrogen 17 mg/dL Invalid Interpretation Code 7-18 [facility] Work Phone: [phone] Lab Report: CBC W/Diff, Auto matedon 06-28-2016 Absolute Neut 3.7 X10 3/UL Invalid Interpretation Code 2.0-7.7 [facility] Work Phone: [phone] Basophils/100 WBC Auto (Bld) 3.1 % High 0-1 [facility] Work Phone: [phone] Eosinophils/100 leukocytes 2.3 % Invalid Interpretation Code 0-5 [facility] Work Phone: [phone] Erythrocyte distribution width Auto Ratio (RBC) 13.4 % Invalid Interpretation Code 11.6-14.6 [facility] Work Phone: [phone] Erythrocytes (RBC) 4.40 10*6/uL Invalid Interpretation Code 4.2-5.4 [facility] Work Phone: [phone] Hematocrit (HCT) 40.9 % Invalid Interpretation Code 37-47 [facility] Work Phone: [phone] Hemoglobin mass conc (Bld) 13.2 g/dL Invalid Interpretation Code 12.0-15.0 [facility] Work Phone: [phone] Immature granulocytes/100 WBC (Bld) 0.200 % Invalid Interpretation Code 0.0-0.9 [facility] Work Phone: [phone] Lymphocytes 4.65 X10 3/UL High 0.83-4.51 [facility] Work Phone: [phone] Lymphocytes/100 leukocytes 47.3 % High 19-41 [employer] Work Phone: [phone] MCH 30.0 pg Invalid Interpretation Code 27.0-32.0 [facility] Work Phone: [phone] MCHC mass conc (RBC) 32.3 G/GL Invalid Interpretation Code 32-36 [facility] Work Phone: [phone] MCV 93.0 fL Invalid Interpretation Code 81-99 [facility] Work Phone: [phone] Monocytes/100 leukocytes 9.9 % Invalid Interpretation Code 0-10 [facility] Work Phone: [phone] Neutrophils/100 WBC Auto (Bld) 37.2 % Low 47-70 [facility] Work Phone: [phone] Platelets 357 10*3/mm3 Invalid Interpretation Code 150-450 [facility] Work Phone: [phone] PMV by Evelio 9.8 fL Invalid Interpretation Code 6.2-12.0 [facility] Work Phone: [phone] RDW SD 45.2 fL High 35.1-43.9 [facility] Work Phone: [phone] WBC (Leukocytes) 9.8 10*3/uL Invalid Interpretation Code 4.4-11.0 [facility] Phone: [phone] Lab Report: Lipid Profileon 06-28-2016 Cholesterol 160 mg/dL Invalid Interpretation Code 200 [facility] Work Phone: [phone] HDL Cholesterol 69 mg/dL Invalid Interpretation Code [facility] Work Phone: [phone] LDL Cholesterol 67 mg/dL Invalid Interpretation Code 0-130 [facility] Work Phone: [phone] Triglyceride 119 mg/dL Invalid Interpretation Code [facility] Phone: [phone] very low density lipoproteins 24 mg/dL Invalid Interpretation Code 5-40 [facility] Work Phone: [phone] Lab Report: Liver Profileon 06-28-2016 Alanine aminotransferase (ALT) U/L Low 12-78 [facility] Work Phone: [phone] Albumin 3.3 g/dL Low 3.4-5.0 [facility] Work Phone: [phone] Alkaline phosphatase (ALP) 80 U/L Invalid Interpretation Code 45-117 [facility] Work Phone: [phone] Aspartate aminotransferase (AST) 25 U/L Invalid Interpretation Code 15-37 [facility] Work Phone: [phone] Bilirubin (direct) 0.14 mg/dL Invalid Interpretation Code 0.00-0.30 [facility] Work Phone: [phone] Bilirubin (total) 0.60 mg/dL Invalid Interpretation Code 0.20-1.00 [facility] Work Phone: [phone] Globulin 3.5 g/dL Invalid Interpretation Code 2.3-3.5 [facility] Work Phone: [phone] Protein 6.8 g/dL Invalid Interpretation Code 6.4-8.2 [facility] Work Phone: [phone] Lab Report: Magnesiumon 06-18 Magnesium 2.1 mg/dL Invalid Interpretation Code 1.8-2.4 [facility] Work Phone: [phone] Office Visiton 01-03-2016 Tobacco use CPHS Never smoker Invalid Interpretation Code [facility] Work Phone: [phone] Office Visit: [facility] 06-25-19 16 General cardiovascular disease 10Y risk [#] [place]D'Agost[place] 11 % Invalid Interpretation Code [facility] Work Phone: [phone] External Other: Preferred Me thod of Contacton 11-23-2014 methcontact secmsg Invalid Interpretation Code [facility] Work Phone: [phone] Replaced Document: Aliya CORLEY Observationson 11-23-2014 EKG QRS axis 67 deg Invalid Interpretation Code [facility] Work Phone: [phone] Interpretation Sinus Bradycardia Lo w voltage with rightward P-axis and rotation -possible pulmonary disease. ABNORMAL Invalid Interpretation Code [facility] Work Phone: [phone] P [place] 70 deg Invalid Interpretation Code [facility] Work Phone: [phone] [place] Interval 152 ms Invalid Interpretation Code [facility] Work Phone: [phone] Pulse (Heart Rate) 51 /min Invalid Interpretation Code [facility] Work Phone: [phone] QRS Duration 100 ms Invalid Interpretation Code [facility] Work Phone: [phone] QT Interval new path ms Invalid Interpretation Code [facility] Work Phone: [phone] QTc Iglesias 403 ms Invalid Interpretation Code [facility] Work Phone: [phone] T [place] -1 deg Invalid Interpretation Code [facility] Phone: [phone] Lab Report: Vitamin D,25 Hyd roxyon 10-07-2014 Vitamin D 25-OH 42.1 ng/mL Invalid Interpretation Code [facility] Work Phone: [phone] Lab Report: (P) CBC W/Diff, Automatedon 10-06-2014 Absolute Neut 2.4 X10 3/UL Invalid Interpretation Code 2.0-7.7 [facility] Work Phone: [phone] Lymphocytes 5.60 X10 3/UL High 0.83-4.51 [facility] Work Phone: [phone] Lab Report: Thyroid Stim Hor sean (TSH)on 10-06-2014 Thyroid stimulating hormone (TSH) 3.86 u[iU]/mL High 0.358-3.74 [facility] Work Phone: [phone] Office Visit: [facility] 05-26-20 14 cardiac risk group B Invalid Interpretation Code [facility] Work Phone: [phone] Lab Report: B12on 10-20-2013 Cobalamins (Vitamin B12) 795 pg/mL Normal 211-911 [facility] Work Phone: [phone] Lab Report: CMPon 10-20-2013 Albumin/Globulin Ratio 0.9 {ratio} Normal 0.9-2.4 [facility] Work Phone: [phone] Replaced Document: [employer] E CG Observationson 05-21-2013 Pulse (Heart Rate) 403 ms Invalid Interpretation Code [facility] Work Phone: [phone] Lab Report: METHYL - copyon 12-05-2012 METHYL 212 nmol/L Normal 73-376 [facility] Work Phone: [phone] Lab Report: TPO - copyon thyroid microsomal antibody < 6 Normal 0-34 [facility] Work Phone: [phone] Lab Report: CRPon 12-02-2012 C reactive protein (CRP) mg/L Normal 0.0-3.0 [facility] Work Phone: [phone] Lab Report: SEDon 12-02-2012 Erythrocyte sedimentation rate 13 mm/h Normal 0-30 [facility] Work Phone: Lab Report: URICon 3 Urate 3.7 mg/dL Normal 2.6-6.0 [facility] Work Phone: Clinical Lists Update: Prelo figure refinisher and repairer [facility]20-2012 [facility]) 33.2 % Invalid Interpretation Code [facility] Work Phone: Anaerobic culture Bacteria identified Anaer cx Nom (Unsp spec) No anaerobic bacteria isolated. [facility] Work Phone: Bacteria identified Cx Nom ( Wound) Wound Culture Staphylococcus epidermidis [facility] Work Phone: Wound Culture Staphylococcus homin is hominis [facility] Work Phone: Gram stain for investigation of transfusion reaction Microscopic observation Gram stain Nom (Unsp spec) [facility] Work Phone: No Panel Information Influenza Types A,B Direct FA (ARIANNA) [facility] Work Phone: RSV Ag EIA RSV Ag Immune stain Ql (Tiss) [facility] Work Phone: Vital Signs Date Time Vital Sign Value Performing Clinician Facility 10-20-2024 10:52-0400 Body mass index (BMI) [Ratio] 18.08 kg/m2 Selvin Felder MD Work Phone: [facility] 10-20-2024 10:52-0400 Body weight 43.4 kg Selvin Felder MD Work Phone: [facility] 10-20-2024 10:52-0400 SaO2% (BldA) [Mass fraction] 96 % Selvin Felder MD Work Phone: [facility] 04-21-2024 11:14-0500 Body mass index (BMI) [Ratio] 18.41 kg/m2 Selvin Felder MD Work Phone: [facility] 04-21-2024 11:14-0500 Body weight 44.2 kg Selvin Felder MD Work Phone: [facility] 04-21-2024 11:14-0500 SaO2% (BldA) [Mass fraction] 96 % Selvin Felder MD Work Phone: [facility] 10-18-2023 09:38-0400 Body height 154.9 cm Selvin Felder MD Work Phone: [facility] 10-18-2023 09:38-0400 Body mass index (BMI) [Ratio] 18.2 kg/m2 Selvin Felder MD Work Phone: [facility] 10-18-2023 09:38-0400 Body weight 43.7 kg Selvin Felder MD Work Phone: [facility] 10-18-2023 09:38-0400 SaO2% (BldA) [Mass fraction] 95 % Selvin Felder MD Work Phone: [facility] 10-04-2023 08:57-0400 Heart rate 66 /min Dr. Howard Zimmerman Work Phone: [facility] 10-04-2023 08:54-0400 Diastolic blood pressure 48 mm[Hg] Dr. Howard Zimmerman Work Phone: [facility] 10-04-2023 08:54-0400 Systolic blood pressure 93 mm[Hg] Dr. Howard Zimmerman Work Phone: [facility] 10-04-2023 08:53-0400 Body temperature 97.5 [degF] Dr. Howard Zimmerman Work Phone: [facility] 10-04-2023 08:53-0400 Respiratory rate 16 /min Dr. Howard Zimmerman Work Phone: [facility] 10-04-2023 08:53-0400 SaO2% (BldA) [Mass fraction] 92 % Dr. Howard Zimmerman Work Phone: [facility] 10-02-2023 11:34-0400 Body mass index (BMI) [Ratio] 18.8 kg/m2 Dr. Howard Zimmerman Work Phone: [facility] 10-02-2023 11:34-0400 Body weight 43.[address] Howard Zimmerman Work Phone: [facility] 09-26-2023 13:36-0400 Body height 152.[address] Howard Zimmerman Work Phone: [facility] 09-19-2023 14:32-0400 Body mass index (BMI) [Ratio] 18.3 kg/m2 Dr. Howard Zimmerman Work Phone: [facility] 09-19-2023 14:32-0400 Body weight 42.[address] Howard Zimmerman Work Phone: [facility] 09-19-2023 14:32-0400 Diastolic blood pressure 69 mm[Hg] Dr. Howard Zimmerman Work Phone: 2(817)076-369224 [place] [address] 09-19-2023 14:32-0400 Heart rate 76 /min Dr. Howard Zimmerman Work Phone: 3(362)745-418424 [place] [address] 09-19-2023 14:32-0400 Respiratory rate 18 /min Dr. Howard Zimmerman Work Phone: [facility] 09-19-2023 14:32-0400 SaO2% (BldA) [Mass fraction] 96 % Dr. Howard Zimmerman Work Phone: [facility] 09-19-2023 14:32-0400 Systolic blood pressure 122 mm[Hg] Dr. Howard Zimmerman Work Phone: [facility] 09-14-2023 14:22-0400 Body temperature 97.9 [degF] Dr. Howard Zimmerman Work Phone: [facility] 09-14-2023 14:22-0400 Diastolic blood pressure 88 mm[Hg] Dr. Howard Zimmerman Work Phone: [facility] 09-14-2023 14:22-0400 Heart rate 84 /min Dr. Howard Zimmerman Work Phone: [facility] 09-14-2023 14:22-0400 Respiratory rate 16 /min Dr. Howard Zimmerman Work Phone: 4(938)847-543724 [place] [address] 09-14-2023 14:22-0400 SaO2% (BldA) [Mass fraction] 97 % Dr. Howard Zimmerman Work Phone: [facility] 09-14-2023 14:22-0400 Systolic blood pressure 133 mm[Hg] Dr. Howard Zimmerman Work Phone: [facility] 09-09-2023 10:43-0400 Body height 152.[address] Howard Zimmerman Work Phone: [facility] 09-09-2023 10:43-0400 Body weight 39.[address] Howard Zimmerman Work Phone: 6(934)028-024824 [place] [address] 09-08-2023 14:45-0400 Body mass index (BMI) [Ratio] 17.2 kg/m2 Dr. Howard Zimmerman Work Phone: [facility] 09-08-2023 13:40-0400 Body temperature 98.4 [degF] Dr. Howard Zimmerman Work Phone: [facility] 09-08-2023 13:40-0400 Diastolic blood pressure 98 mm[Hg] Dr. Howard Zimmerman Work Phone: [facility] 09-08-2023 13:40-0400 Heart rate 83 /min Dr. Howard Zimmerman Work Phone: [facility] 09-08-2023 13:40-0400 Respiratory rate 12 /min Dr. Howard Zimmerman Work Phone: [facility] 09-08-2023 13:40-0400 SaO2% (BldA) [Mass fraction] 95 % Dr. Howard Zimmerman Work Phone: [facility] 09-08-2023 13:40-0400 Systolic blood pressure 146 mm[Hg] Dr. Howard Zimmerman Work Phone: [facility] 09-08-2023 09:36-0400 Body height 157.[address] Howard Zimmerman Work Phone: [facility] 09-08-2023 09:36-0400 Body mass index (BMI) [Ratio] 17.2 kg/m2 Dr. Howard Zimmerman Work Phone: [facility] 09-08-2023 09:36-0400 Body weight 42.[address] Howard Zimmerman Work Phone: [facility] 08-17-2023 10:49-0500 Body temperature 97.3 [degF] Bart Brooks DO Work Phone: [facility] 08-17-2023 10:49-0500 Body weight 43.09 kg Bart Brooks DO Work Phone: [facility] 08-17-2023 10:49-0500 Diastolic blood pressure 64 mm[Hg] Bart Brooks DO Work Phone: [facility] 08-17-2023 10:49-0500 Heart rate 92 /min Bart Brooks DO Work Phone: [facility] 08-17-2023 10:49-0500 SaO2% (BldA) [Mass fraction] 96 % Bart Brooks DO Work Phone: [facility] 08-17-2023 10:49-0500 Systolic blood pressure 102 mm[Hg] Bart Brooks DO Work Phone: [facility] 07-28-2023 16:08-0500 Diastolic blood pressure 89 mm[Hg] Dr. Howard Zimmerman Work Phone: [facility] 07-28-2023 16:08-0500 Heart rate 83 /min Dr. Howard Zimmerman Work Phone: [facility] 07-28-2023 16:08-0500 Respiratory rate 16 /min Dr. Howard Zimmerman Work Phone: [facility] 07-28-2023 16:08-0500 SaO2% (BldA) [Mass fraction] 96 % Dr. Howard Zimmerman Work Phone: [facility] 07-28-2023 16:08-0500 Systolic blood pressure 160 mm[Hg] Dr. Howard Zimmerman Work Phone: [facility] 07-28-2023 09:14-0500 Body height 157.[address] Howard Zimmerman Work Phone: [facility] 07-28-2023 09:14-0500 Body mass index (BMI) [Ratio] 18.1 kg/m2 Dr. Howard Zimmerman Work Phone: [facility] 07-28-2023 09:14-0500 Body temperature 97 [degF] Dr. Howard Zimmerman Work Phone: 6(992)612-853324 [place] [address] 07-28-2023 09:14-0500 Body weight [address] Howard Zimmerman Work Phone: 2(601)669-600792 [address] 06-29-2023 15:18-0500 Body height 157.[address] Howard Zimmerman Work Phone: 3(016)841-187824 [place] [address] 06-29-2023 15:18-0500 Body weight 41.[address] Howard Zimmerman Work Phone: 2(269)640-713224 [place] [address] 06-29-2023 08:51-0500 SaO2% (BldA) [Mass fraction] 96 % Dr. Howard Zimmerman Work Phone: 3(888)047-481624 [place] [address] 06-29-2023 08:44-0500 Body temperature 98 [degF] Dr. Howard Zimmerman Work Phone: 3(285)573-619424 [place] [address] 06-29-2023 08:44-0500 Diastolic blood pressure 84 mm[Hg] Dr. Howard Zimmerman Work Phone: 8(415)433-228124 [place] [address] 06-29-2023 08:44-0500 Heart rate 71 /min Dr. Howard Zimmerman Work Phone: [facility] 06-29-2023 08:44-0500 Respiratory rate 14 /min Dr. Howard Zimmerman Work Phone: 8(578)649-330824 [place] [address] 06-29-2023 08:44-0500 Systolic blood pressure 113 mm[Hg] Dr. Howard Zimmerman Work Phone: 3(409)487-530624 [place] [address] 06-29-2023 05:42-0500 Body mass index (BMI) [Ratio] 16.6 kg/m2 Dr. Howard Zimmerman Work Phone: [facility] 06-28-2023 18:30-0500 Diastolic blood pressure 72 mm[Hg] Dr. Howard Zimmerman Work Phone: [facility] 06-28-2023 18:30-0500 Heart rate 99 /min Dr. Howard Zimmerman Work Phone: [facility] 06-28-2023 18:30-0500 Respiratory rate 18 /min Dr. Howard Zimmerman Work Phone: [facility] 06-28-2023 18:30-0500 Systolic blood pressure 116 mm[Hg] Dr. Howard Zimmerman Work Phone: [facility] 06-28-2023 16:00-0500 SaO2% (BldA) [Mass fraction] 95 % Dr. Howard Zimmerman Work Phone: [facility] 06-28-2023 12:17-0500 Body height 157.[address] Howard Zimmerman Work Phone: [facility] 06-28-2023 12:17-0500 Body mass index (BMI) [Ratio] 17 kg/m2 Dr. Howard Zimmerman Work Phone: [facility] 06-28-2023 12:17-0500 Body temperature 97.2 [degF] Dr. Howard Zimmerman Work Phone: [facility] 06-28-2023 12:17-0500 Body weight 42.[address] Howard Zimmerman Work Phone: [facility] 04-04-2023 13:20-0400 Body height 152.4 cm Selvin Felder MD Work Phone: [facility] 04-04-2023 13:20-0400 Body weight 44 kg Selvin Felder MD Work Phone: [facility] 04-04-2023 13:20-0400 SaO2% (BldA) [Mass fraction] 98 % Selvin Felder MD Work Phone: [facility] 02-13-2023 11:24-0400 Body height 156 cm Bart Brooks DO Work Phone: [facility] 02-13-2023 11:24-0400 Body temperature 97.5 [degF] Bart Jimenezi DO Work Phone: [facility] 02-13-2023 11:24-0400 Body weight 43.55 kg Bart Jimenezi DO Work Phone: [facility] 02-13-2023 11:24-0400 Diastolic blood pressure 81 mm[Hg] Bart Jimenezi DO Work Phone: [facility] 02-13-2023 11:24-0400 Heart rate 89 /min Bart Jimenezi Work Phone: [facility] 02-13-2023 11:24-0400 SaO2% (BldA) [Mass fraction] 97 % Bart Brooks DO Work Phone: [facility] 02-13-2023 11:24-0400 Systolic blood pressure 111 mm[Hg] Bart Brooks DO Work Phone: [facility] 01-16-2023 12:07-0400 Body temperature 97.8 [degF] Dr. Howard Zimmerman Work Phone: [facility] 01-16-2023 12:07-0400 Diastolic blood pressure 69 mm[Hg] Dr. Howard Zimmerman Work Phone: [facility] 01-16-2023 12:07-0400 Heart rate 70 /min Dr. Howard Zimmerman Work Phone: [facility] 01-16-2023 12:07-0400 Respiratory rate 16 /min Dr. Howard Zimmerman Work Phone: [facility] 01-16-2023 12:07-0400 SaO2% (BldA) [Mass fraction] 98 % Dr. Howard Zimmerman Work Phone: [facility] 01-16-2023 12:07-0400 Systolic blood pressure 111 mm[Hg] Dr. Howard Zimmerman Work Phone: [facility] 01-15-2023 16:37-0400 Body height 152.[address] Howard Zimmeramn Work Phone: [facility] 01-15-2023 16:37-0400 Body weight 42.[address] Howard Zimmerman Work Phone: [facility] 01-15-2023 13:23-0400 Body mass index (BMI) [Ratio] 18.3 kg/m2 Dr. Howard Zimmerman Work Phone: [facility] 01-15-2023 12:30-0400 Inhaled oxygen flow rate 1 L/min Dr. Howard Zimmerman Work Phone: [facility] 01-05-2023 16:09-0400 Body mass index (BMI) [Ratio] 18.3 kg/m2 Dr. Howard Zimmerman Work Phone: [facility] 01-05-2023 16:09-0400 Body weight 43.[address] Howard Zimmerman Work Phone: [facility] 01-05-2023 16:09-0400 Diastolic blood pressure 86 mm[Hg] Dr. Howard Zimmerman Work Phone: [facility] 01-05-2023 16:09-0400 Heart rate 71 /min Dr. Howard Zimmerman Work Phone: [facility] 01-05-2023 16:09-0400 Respiratory rate 16 /min Dr. Howard Zimmerman Work Phone: [facility] 01-05-2023 16:09-0400 Systolic blood pressure 158 mm[Hg] Dr. Howard Zimmerman Work Phone: [facility] 08-15-2022 11:13-0500 Body height 156.2 cm Bart Brooks DO Work Phone: [facility] 08-15-2022 11:13-0500 Body temperature 97 [degF] Bart Brooks DO Work Phone: [facility] 08-15-2022 11:13-0500 Body weight 45.59 kg Bart Masci DO Work Phone: [facility] 08-15-2022 11:13-0500 Diastolic blood pressure 76 mm[Hg] Bart Brooks DO Work Phone: [facility] 08-15-2022 11:13-0500 Heart rate 48 /min Bart Brooks DO Work Phone: [facility] 08-15-2022 11:13-0500 Systolic blood pressure 120 mm[Hg] Bart Brooks DO Work Phone: [facility] 07-19-2022 09:48-0500 Body mass index (BMI) [Ratio] 19.8 kg/m2 Dr. Howard Zimmerman Work Phone: [facility] 07-19-2022 09:48-0500 Body temperature 96.2 [degF] Dr. Howard Zimmerman Work Phone: [facility] 07-19-2022 09:48-0500 Respiratory rate 16 /min Dr. Howard Zimmerman Work Phone: [facility] 07-19-2022 00:37-0500 Body weight 47.[address] Howard Zimmerman Work Phone: [facility] 07-19-2022 00:37-0500 Diastolic blood pressure 37 mm[Hg] Dr. Howard Zimmerman Work Phone: [facility] 07-19-2022 00:37-0500 Heart rate 54 /min Dr. Howard Zimmerman Work Phone: [facility] 07-19-2022 00:37-0500 Systolic blood pressure 90 mm[Hg] Dr. Howard Zimmerman Work Phone: [facility] 07-05-2022 15:39-0500 Body height 156.8 cm Sridevi Solo MD Work Phone: [facility] 07-05-2022 15:39-0500 Body weight 46.27 kg Sridevi Solo MD Work Phone: [facility] 07-05-2022 15:39-0500 Diastolic blood pressure 68 mm[Hg] Sridevi Solo MD Work Phone: [facility] 07-05-2022 15:39-0500 Heart rate 73 /min Sridevi Solo MD Work Phone: [facility] 07-05-2022 15:39-0500 SaO2% (BldA) [Mass fraction] 95 % Sridevi Solo MD Work Phone: [facility] 07-05-2022 15:39-0500 Systolic blood pressure 138 mm[Hg] Sridevi Solo MD Work Phone: [facility] 07-05-2022 09:40-0500 Body mass index (BMI) [Ratio] 19.8 kg/m2 Dr. Howard Zimmerman Work Phone: [facility] 07-05-2022 09:40-0500 Body temperature 96.4 [degF] Dr. Howard Zimmerman Work Phone: [facility] 07-05-2022 09:40-0500 Diastolic blood pressure 37 mm[Hg] Dr. Howard Zimmerman Work Phone: [facility] 07-05-2022 09:40-0500 Heart rate 54 /min Dr. Howard Zimmerman Work Phone: [facility] 07-05-2022 09:40-0500 Systolic blood pressure 90 mm[Hg] Dr. Howard Zimmerman Work Phone: [facility] 06-23-2022 09:32-0500 Respiratory rate 16 /min Dr. Howard Zimmerman Work Phone: [facility] 06-18-2022 00:39-0500 Body weight 47.[address] Howard Zimmerman Work Phone: [facility] 06-14-2022 09:17-0500 Body mass index (BMI) [Ratio] 19.8 kg/m2 Dr. Howard Zimmerman Work Phone: [facility] 06-14-2022 09:17-0500 Body temperature 97.3 [degF] Dr. Howard Zimmerman Work Phone: [facility] 06-14-2022 09:17-0500 Diastolic blood pressure 66 mm[Hg] Dr. Howard Zimmerman Work Phone: [facility] 06-14-2022 09:17-0500 Heart rate 77 /min Dr. Howard Zimmerman Work Phone: [facility] 06-14-2022 09:17-0500 Systolic blood pressure 108 mm[Hg] Dr. Howard Zimmerman Work Phone: 4(286)840-735124 [place] [address] 06-07-2022 09:16-0500 Body height 154.[address] Howard Zimmerman Work Phone: 3(347)891-711124 [place] [address] 06-07-2022 09:16-0500 Body weight 47.[address] Howard Zimmerman Work Phone: 4(461)544-816024 [place] [address] 06-07-2022 09:16-0500 Respiratory rate 16 /min Dr. Howard Zimmerman Work Phone: [facility] 05-12-2022 10:42-0500 Body height 154.[address] Howard Zimmerman Work Phone: 5(603)067-973024 [place] [address] Work Phone: 05-12-2022 10:42-0500 Body mass index (BMI) [Ratio] 18.8 kg/m2 Dr. Howard Zimmerman Work Phone: [facility] 05-12-2022 10:42-0500 Body temperature 97.4 [degF] Dr. Howard Zimmerman Work Phone: [facility] 05-12-2022 10:42-0500 Body weight 45.[address] Howard Zimmerman Work Phone: [facility] 05-12-2022 10:42-0500 Diastolic blood pressure 66 mm[Hg] Dr. Howard Zimmerman Work Phone: [facility] 05-12-2022 10:42-0500 Heart rate 81 /min Dr. Howard Zimmerman Work Phone: [facility] 05-12-2022 10:42-0500 Respiratory rate 16 /min Dr. Howard Zimmerman Work Phone: [facility] 05-12-2022 10:42-0500 SaO2% (BldA) [Mass fraction] 99 % Dr. Howard Zimmerman Work Phone: [facility] 05-12-2022 10:42-0500 Systolic blood pressure 104 mm[Hg] Dr. Howard Zimmerman Work Phone: 3(485)596-38[address] [place] [address] 04-14-2022 12:25-0400 Body height 154.[address] Howard Zimmerman Work Phone: 2(542)327-796424 [place] [address] Work Phone: 04-14-2022 12:25-0400 Body mass index (BMI) [Ratio] 19 kg/m2 Dr. Howard Zimmerman Work Phone: 8(697)105-387792 [address] 04-14-2022 12:25-0400 Body temperature 96.3 [degF] Dr. Howard Zimmerman Work Phone: 4(304)939-968592 [address] 04-14-2022 12:25-0400 Body weight 45.[address] Howard Zimmerman Work Phone: 2(802)066-456590 [place] [address] 04-14-2022 12:25-0400 Diastolic blood pressure 103 mm[Hg] Dr. Howard Zimmerman Work Phone: 0(807)526-885292 [address] 04-14-2022 12:25-0400 Heart rate 94 /min Dr. Howard Zimmerman Work Phone: [phone] [place] [address] 04-14-2022 12:25-0400 Respiratory rate 18 /min Dr. Howard Zimmerman Work Phone: [phone] [place] [address] 04-14-2022 12:25-0400 SaO2% (BldA) [Mass fraction] 98 % Dr. Howard Zimmerman Work Phone: [phone] [place] [address] 04-14-2022 12:25-0400 Systolic blood pressure 149 mm[Hg] Dr. Howard Zmimerman Work Phone: [phone] [place] [address] 03-30-2022 10:30-0400 Body temperature 98.2 [degF] Dr. Howard Zimmerman Work Phone: [facility] 03-30-2022 10:30-0400 Diastolic blood pressure 64 mm[Hg] Dr. Howard Zimmerman Work Phone: [facility] 03-30-2022 10:30-0400 Heart rate 83 /min Dr. Howard Zimmerman Work Phone: [facility] 03-30-2022 10:30-0400 Respiratory rate 14 /min Dr. Howard Zimmerman Work Phone: [facility] 03-30-2022 10:30-0400 SaO2% (BldA) [Mass fraction] 97 % Dr. Howard Zimmerman Work Phone: [facility] 03-30-2022 10:30-0400 Systolic blood pressure 112 mm[Hg] Dr. Howard Zimmerman Work Phone: [facility] 02-14-2022 11:51-0400 Body height 156.8 cm Bart Barbarai DO Work Phone: [facility] 02-14-2022 11:51-0400 Body temperature 97 [degF] Bart Masci DO Work Phone: [facility] 02-14-2022 11:51-0400 Body weight 46.27 kg Bart Masci DO Work Phone: [facility] 02-14-2022 11:51-0400 Diastolic blood pressure 90 mm[Hg] Bart Masci DO Work Phone: [facility] 02-14-2022 11:51-0400 Heart rate 67 /min Bart Barbarai DO Work Phone: [facility] 02-14-2022 11:51-0400 Systolic blood pressure 147 mm[Hg] Bart Jimenezi DO Work Phone: [facility] 11-23-2021 13:17-0400 Body height 157.[address] Howard Zimmerman Work Phone: [facility] Work Phone: 11-23-2021 13:17-0400 Body weight 49.[address] Howard Zimmerman Work Phone: [facility] Work Phone: 11-23-2021 13:17-0400 Diastolic blood pressure 68 mm[Hg] Dr. Howard Zimmerman Work Phone: [facility] Work Phone: 11-23-2021 13:17-0400 Heart rate 64 /min Dr. Howard Zimmerman Work Phone: [facility] Work Phone: 11-23-2021 13:17-0400 Respiratory rate 18 /min Dr. Howard Zimmerman Work Phone: [facility] Work Phone: 11-23-2021 13:17-0400 Systolic blood pressure 140 mm[Hg] Dr. Howard Zimmerman Work Phone: [facility] Work Phone: 11-23-2021 13:17-0400 Body height 157.[address] Howard Zimmerman Work Phone: [facility] Work Phone: 11-23-2021 13:17-0400 Body weight 49.[address] Howard Zimmerman Work Phone: [facility] Work Phone: 11-23-2021 13:17-0400 Diastolic blood pressure 68 mm[Hg] Dr. Howard Zimmerman Work Phone: [facility] Work Phone: 11-23-2021 13:17-0400 Heart rate 64 /min Dr. Howard Zimmerman Work Phone: [facility] Work Phone: 11-23-2021 13:17-0400 Respiratory rate 18 /min Dr. Howard Zimmerman Work Phone: [facility] Work Phone: 11-23-2021 13:17-0400 Systolic blood pressure 140 mm[Hg] Dr. Howard Zimmerman Work Phone: [facility] Work Phone: 09-19-2021 14:33-0400 Body height 158 cm Sridevi Solo MD Work Phone: [facility] 09-19-2021 14:33-0400 Body weight 48.53 kg Sridevi Solo MD Work Phone: [facility] 09-19-2021 14:33-0400 Diastolic blood pressure 70 mm[Hg] Sridevi Solo MD Work Phone: [facility] 09-19-2021 14:33-0400 Heart rate 86 /min Sridevi Solo MD Work Phone: [facility] 09-19-2021 14:33-0400 SaO2% (BldA) [Mass fraction] 97 % Sridevi Solo MD Work Phone: [facility] 09-19-2021 14:33-0400 Systolic blood pressure 142 mm[Hg] Sridevi Solo MD Work Phone: [facility] 11-22-2020 13:01-0400 Body mass index (BMI) [Ratio] 19.3 kg/m2 Dr. Howard Zimmerman Work Phone: [facility] Work Phone: 11-22-2020 13:01-0400 Body mass index (BMI) [Ratio] 19.3 kg/m2 Dr. Howard Zimmerman Work Phone: [facility] Work Phone: 05-27-2019 09:30-0500 Body temperature 97.81 [degF] Brandon Faye MD Work Phone: [facility] Work Phone: 05-27-2019 09:30-0500 Diastolic blood pressure 78 mm[Hg] Brandon Faye MD Work Phone: [facility] Work Phone: 05-27-2019 09:30-0500 Heart rate 68 /min Brandon Faye MD Work Phone: [facility] Work Phone: 05-27-2019 09:30-0500 Respiratory rate 15 /min Brandon Faye MD Work Phone: [facility] Work Phone: 05-27-2019 09:30-0500 SaO2% (BldA) [Mass fraction] 94 % Brandon Faye MD Work Phone: [facility] Work Phone: 05-27-2019 09:30-0500 Systolic blood pressure 123 mm[Hg] Brandon Faye MD Work Phone: [facility] Work Phone: 05-27-2019 06:56-0500 Body height 157.5 cm Brandon Faye MD Work Phone: [facility] Work Phone: 05-27-2019 06:56-0500 Body mass index (BMI) [Ratio] 19.66 kg/m2 Brandon Faye MD Work Phone: [facility] Work Phone: 05-27-2019 06:56-0500 Body weight 48.76 kg Brandon Faye MD Work Phone: [facility] Work Phone: 2019 13:58-0500 Height 157.5 cm Brandon Faye [facility] , [place] 2019 13:56-0500 BMI (Body Mass Index) 19.74 kg/m2 Brandon Faye [facility] 2019 13:56-0500 Body Temperature 98.6 [degF] Brandon [facility], [place] 2019 13:56-0500 Body weight 48.94 kg Brandon Faye [facility] , [place] 2019 13:56-0500 BP Diastolic 95 mm[Hg] [facility] [place] [facility] 13:56-0500 BP Systolic 170 mm[Hg] [facility] , [place] 2019 13:56-0500 Pulse (Heart Rate) 59 /min Brandon New [facility], [place] 2019 13:56-0500 Pulse Oximetry 95 % Brandon New [facility] , [place] 2019 13:56-0500 Respiratory Rate 16 /min Brandon New [facility], [place] 01-08-2017 13:29-0400 BMI (Body Mass Index) [...] Date Encounter Type Care Provider Facility Start: 03-26-2025 End: 03-26-2025 ambulatory Odalis MERCER Facility:[facility] Start: 03-24-2025 End: 03-24-2025 ambulatory Howard Chi Erasmo [facility] Start: 03-16-2025 End: 03-16-2025 ambulatory Candicenunnlaila MERCER Facility:[facility] Start: 03-04-2025 Encounter for genera l adult medical examination without abnormal findings Odalis Saravia [facility] Start: 02-26-2025 ambulatory Odalis MERCER Facility:[facility] Start: 02-26-2025 Registered Referred Odalis SaeedJarod [employer] [facility] [employer] [facility] Start: 02-13-2025 End: 02-13-[address] Howard Zimmerman MD Work Phone: -Laboratory Start: 02-13-2025 End: 02-13-[address] Odalis Saravia MD -Laboratory Work Phone: Start: 02-13-2025 End: 02-13-2025 ambulatory Howard Brandtok Facility:[facility] Start: 02-05-2025 End: 02-05-[address] Howard Zimmerman MD Work Phone: -[facility] Start: 02-05-2025 End: 02-05-2025 Patient encounter procedure Pam JOHNSON -[facility] Work Phone: Start: 01-29-2025 Registered Referred Odalis SaeedJarod [employer] [facility] [employer] [facility] Start: 01-29-2025 End: 01-29-2025 ambulatory Odalis MERCER Facility:[facility] Start: 01-20-2025 End: 01-20-[address] Howard Zimmerman MD Work Phone: -[facility] Start: 01-20-2025 End: 01-20-[address] Odalis Saravia MD -[facility] Work Phone: Start: 01-09-2025 End: 01-09-[address] Howard Zimmerman MD Work Phone: -[facility] Start: 01-09-2025 End: 01-09-2025 Patient encounter procedure Pam JOHNSON -[facility] Work Phone: Start: 01-02-2025 ambulatory Odalis meek OLS Facility:[facility] Start: 01-02-2025 Registered Referred Odalis SaeedJarod [facility] Start: 12-31-2024 End: 12-31-[address] Howard Zimmerman MD Work Phone: -[facility] Start: 12-31-2024 End: 12-31-2024 Patient encounter procedure Pam Pack NP-C -[facility] Work Phone: Start: 12-25-2024 ambulatory Odalis meek OLS Facility:[facility] Start: 12-25-2024 Registered Referred Odalis SaeedJarod [facility] Start: 11-27-2024 ambulatory Odalis meek OLS Facility:[facility] Start: 11-27-2024 Registered Referred Odalis SaeedJarod [facility] Start: 11-26-2024 End: 11-26-[address] Howard Zimmerman MD Work Phone: -[facility] Start: 11-26-2024 End: 11-26-2024 Patient encounter procedure Pam JOHNSON -[facility] Work Phone: Start: 11-18-2024 End: 11-18-[address] Howard Zimmerman MD Work Phone: -[facility] Start: 11-18-2024 End: 11-18-[address] Odalis Saravia MD -[facility] Work Phone: Start: 11-17-2024 End: 11-17-[address] Howard Zimmerman MD Work Phone: -[facility] Start: 11-17-2024 End: 11-17-2024 Patient encounter procedure Pam JOHNSON -[facility] Work Phone: Start: 11-07-2024 End: 11-07-[address] Howard Zimmerman MD Work Phone: [facility] Work Phone: Start: 11-07-2024 End: 11-07-2024 Patient encounter procedure Pam JOHNSON -[facility] Work Phone: Start: 10-23-2024 ambulatory Odalis MERCER Facility:[facility] Start: 10-23-2024 [facility] Start: 10-22-2024 End: 10-22-[address] Howard Zimmerman MD Work Phone: [facility] Work Phone: Start: 10-22-2024 End: 10-22-2024 [facility]ed [facility] Start: 10-21-2024 End: 10-22-[address] Howard Zimmerman MD Work Phone: -[facility] Start: 10-21-2024 End: 10-21-2024 Patient encounter procedure Pam JOHNSON -[facility] Work Phone: Start: 10-20-2024 End: 10-20-2024 Office outpatient visit 25 minutes Selvin Felder MD Work Phone: Neurology Comment on above: Parkinson's disease 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) (Primary Dx); Neurogenic orthostatic hypotension (HCC) Start: 10-20-2024 End: 10-20-2024 ambulatory SELVIN FELDER Facility:[facility] Start: 09-18-2024 End: 09-18-2024 [facility] Start: 09-18-2024 [facility] Start: 09-17-2024 End: 09-18-[address] Howard Zimmerman MD Work Phone: [facility] Work Phone: Start: 09-17-2024 End: 09-17-2024 Patient encounter procedure Pam Pack NP-C -[facility] Work Phone: Start: 09-11-2024 End: 09-11-[address] Howard Zimmerman MD Work Phone: [facility] Work Phone: Start: 09-11-2024 End: 09-11-2024 [facility] Start: 09-11-2024 [facility] Start: 09-11-2024 End: 09-11-2024 ambulatory Odalis MERCER Facility:[facility] Start: 08-26-2024 End: 08-26-[facility] Start: 08-26-2024 End: 08-26-[address] [facility] Start: 08-14-2024 End: 08-14-[address] Howard Zimmerman MD Work Phone: [facility] Work Phone: Start: 08-14-2024 End: 08-14-2024 [facility] Start: 08-14-2024 End: 08-14-2024 ambulatory Odalis MERCER Facility:[facility] Start: 07-31-2024 End: 07-31-2024 ambulatory Pam Pack DEGREASER OPERATOR Facility:[facility] Start: 07-31-2024 End: 07-31-2024 Patient encounter procedure Pam Pack DEGREASER OPERATOR-C -[facility] Work Phone: Start: 07-17-2024 ambulatory Odalis meek OLS Facility:[facility] Start: 07-17-2024 [facility] Start: 07-01-2024 End: 07-01-2024 ambulatory Howard Zimmerman Facility:[facility] Start: 07-01-2024 End: 07-01-[address] Odalis Saravia MD -[facility] Work Phone: Start: 06-26-2024 End: 06-26-2024 [facility] Start: 06-26-2024 End: 06-26-2024 ambulatory Odalis Tocarlito OLS Facility:[facility] Start: 06-19-2024 ambulatory Odalis meek OLS Facility:[facility] Start: 06-19-2024 [facility] Start: 06-17-2024 End: 06-17-2024 ambulatory Odalis Tocarlito Facility:[facility] Start: 06-17-2024 End: 06-17-[address] Odalis Saravia MD -[facility] Work Phone: Start: 06-10-2024 End: 06-10-2024 [facility] Start: 06-10-2024 End: 06-10-2024 ambulatory Candicejeniffer Saravia OLS Facility:[facility] Start: 05-29-2024 End: 05-29-2024 ambulatory Pam Ramone DEGREASER OPERATOR Facility:[facility] Start: 05-29-2024 End: 05-29-2024 Patient encounter procedure Pam Pack DEGREASER OPERATOR- -[facility] Work Phone: Start: 05-22-2024 End: 05-22-2024 [facility] Start: 05-22-2024 End: 05-22-2024 ambulatory Efmarcy Tocarlito OLS Facility:[facility] Start: 05-14-2024 End: 05-14-2024 ambulatory [facility] Erasmo Facility:[facility] Start: 05-14-2024 End: 05-14-2024 Emergency department patient visit Howard Chi Erasmo Facility:[facility] Start: 05-07-2024 End: 05-07-2024 ambulatory [facility] Er[facility] Facility:[facility] Start: 04-21-2024 End: 04-21-2024 Telephone encounter Selvin Felder MD Work Phone: Neurology Comment on above: Appointment Start: 04-21-2024 End: 04-21-2024 ambulatory SELVIN FELDER Facility:[facility] Start: 04-21-2024 End: 04-21-2024 Office outpatient visit 25 minutes Selvin Felder MD Work Phone: Neurology Comment on above: Parkinson's disease 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) Start: 10-18-2023 End: 10-18-2023 Office outpatient visit 25 minutes Selvin Felder MD Work Phone: Neurology Comment on above: Parkinson's disease 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) (Primary Dx) Start: 10-17-[address] Howard almaraz Work Phone: [facility] Start: 10-17-2023 Dr. Howard Zimmerman Work Phone: [facility] Start: 10-05-2023 End: 10-05-[address] Howard Zimmerman Work Phone: [facility] Work Phone: Start: 10-05-2023 End: 10-05-[address] Howard Zimmerman Work Phone: [facility] Start: 10-05-2023 End: 10-05-2023 Dr. Howard Zimmerman Work Phone: [facility] Start: 09-19-2023 End: 09-19-[address] Howard Zimmerman Work Phone: [facility] Work Phone: Start: 09-19-2023 End: 09-19-2023 Dr. Howard Zimmerman Work Phone: [facility] Work Phone: Start: 09-14-2023 End: 10-04-2023 Evaluation and management of inpatient Dr. Howard Zimm[facility] Start: 09-14-2023 End: 10-04-2023 Dr. Howard Zimm[facility] Start: 09-14-2023 Non-patient / Non-visit Dr. Keith Zimmerman Work Phone: [facility] Work Phone: Start: 09-14-2023 Dr. Howard Zimmerman Work Phone: [facility] Work Phone: Start: 09-13-2023 Non-patient / Non-visit Dr. Keith Zimmerman Work Phone: [facility] Work Phone: Start: 09-13-2023 Dr. Howard Zimmerman Work Phone: [facility] Work Phone: Start: 09-12-2023 Non-patient / Non-visit Dr. Keith Zimmerman Work Phone: [facility] Work Phone: Start: 09-12-2023 Dr. Howard Zimmerman Work Phone: [facility] Work Phone: Start: 09-11-2023 Non-patient / Non-visit Dr. Keith Zimmerman Work Phone: [facility] Work Phone: Start: 09-11-2023 Dr. Howard Zimmerman Work Phone: [facility] Work Phone: Start: 09-10-2023 Non-patient / Non-visit Dr. Keith Zimmerman Work Phone: [facility] Work Phone: Start: 09-10-2023 Dr. Howard Zimmerman Work Phone: [facility] Work Phone: Start: 09-09-2023 Non-patient / Non-visit Dr. Keith Zimmerman Work Phone: [facility] Work Phone: Start: 09-09-2023 Dr. Howard Zimmerman Work Phone: [facility] Work Phone: Start: 09-08-2023 Non-patient / Non-visit Dr. Keith Zimmerman Work Phone: [facility] Work Phone: Start: 09-08-2023 Dr. Howard Zimmerman Work Phone: [facility] Work Phone: Start: 09-08-2023 End: 09-14-2023 Evaluation and management of inpatient Dr. Howard Zimmerman [facility] Work [facility]: Start: 09-08-2023 End: 09-14-[address] Howard Zimmerman Work Phone: [facility] Work Phone: Start: 09-08-2023 End: 09-14-2023 Dr. Howard Zimmerman Work Phone: [facility]-Medical Surgical 3 Work Phone: Start: 09-05-2023 End: 09-05-[address] Howard Zimmerman Work Phone: [facility] Work Phone: Start: 09-05-2023 End: 09-05-[address] Howard Zimmerman Work Phone: [facility]-Physical Therapy Work Phone: Start: 09-05-[address] Howard rodriguez Work Phone: [facility] Work Phone: Start: 09-05-2023 Dr. Howard Zimmerman Work Phone: [facility] Work Phone: Start: 08-22-[address] Howard rodriguez Work Phone: [facility] Work Phone: Start: 08-21-2023 End: 08-21-[address] Howard Zimmerman Work Phone: [facility] Work Phone: Start: 08-21-2023 End: 08-21-[address] [facility] Start: 08-21-2023 End: 08-21-2023 Dr. Howard Zimmerman [facility] Start: 08-20-2023 End: 08-20-[address] Howard Zimmerman Work Phone: [facility] Work Phone: Start: 08-20-2023 End: 08-20-[address] Howard Zimmerman [facility] Start: 08-20-2023 End: 08-20-2023 Dr. Howard Zimmerman [facility] Start: [...] 08-01-[address] Howard Zimmerman Work Phone: [facility] Work Phone: Start: 08-01-2023 End: 08-01-[address] Howard Zimmerman Work Phone: [facility]-Physical Therapy Work Phone: Start: 08-01-2023 End: 08-01-2023 Dr. Howard Zimm[facility] Start: 08-01-[address] Howard rodriguez [facility] Start: 07-30-2023 Refill Selvin ortiz MD Work Phone: [facility] Comment on above: Refill Request Start: 07-28-2023 End: 07-28-2023 Emergency department patient visit Dr. Howard Zimmerman Work Phone: [facility]-Emergency Department Work Phone: Start: 07-28-2023 End: 07-28-2023 Dr. Howard Zimmerman Work Phone: [facility] Work Phone: Start: 07-25-[address] Howard rodriguez Work Phone: [facility]-Physical Therapy Work Phone: Start: 07-10-[address] Howard almaraz [facility] Work Phone: Start: 07-10-2023 Dr. Howard Zimmerman [facility] Work Phone: Start: 07-10-2023 Non-patient / Non-visit Dr. Keith Zimmerman Work Phone: [facility] Work Phone: Start: 07-10-2023 Dr. Howard Zimmerman Work Phone: [facility] Work Phone: Start: 06-29-2023 Non-patient / Non-visit Dr. Keith Zimmerman Work Phone: [facility] Work Phone: Start: 06-29-2023 Dr. Howard Zimmerman Work Phone: [facility] Work Phone: Start: 06-29-2023 Non-patient / Non-visit Dr. Keith Zimmerman Work Phone: [facility] Start: 06-29-2023 Dr. Howard Zimmerman Work Phone: [facility] Start: 06-28-2023 End: 06-29-2023 Evaluation and management of inpatient Dr. Howard Zimmerman [facility] Work [facility]: Start: 06-28-2023 End: 06-29-[address] Howard Zimmerman Work Phone: [facility] Work Phone: Start: 06-28-2023 Non-patient / Non-visit Dr. Keith Zimmerman Work Phone: [facility] Work Phone: Start: 06-28-2023 End: 06-29-2023 Dr. Howard Zimmerman [facility] Start: 06-27-[address] Howard rodriguez Work Phone: [facility]-Physical Therapy Work Phone: Start: 05-30-2023 Registered Recurring [facility] Work Phone: Start: 05-28-2023 End: 05-28-2023 ambulatory [facility] Work Phone: Start: 05-28-2023 End: 05-28-2023 [facility] Start: 05-18-2023 Telephone encounter Selvin laird MD Work Phone: Neurological [facility] Comment on above: Patient Question Start: 05-15-2023 End: 05-15-2023 ambulatory [facility] Work Phone: Start: 05-15-2023 End: 05-15-[address] Howard Zimmerman Work Phone: [facility]-Pulmonary Services/Neurology Work Phone: Start: 05-14-2023 End: 05-14-[address] Howard Zimmerman Work Phone: [facility] Work Phone: Start: 05-14-2023 End: 05-14-[address] Howard Zimmerman Work Phone: [facility] 3rd Flr Start: 05-09-[address] Howard rodriguez Work Phone: [facility]Physical Therapy Work Phone: Start: 05-08-2023 End: 05-08-[address] Howard Zimmerman Work Phone: [facility] Work Phone: Start: 05-08-2023 End: 05-08-[address] Howard Zimm[facility] Start: 05-04-[address] Howard rodriguez Work Phone: [facility]-Physical Therapy Work Phone: Start: 05-03-2023 End: 05-03-[address] Howard Zimmerman Work Phone: [facility] Work Phone: Start: 05-03-2023 End: 05-03-[address] Howard Zimmerman Work Phone: [facility]-Radiology, [facility] Work Phone: Start: 04-25-[address] Howard rodriguez Work Phone: [facility]-Physical Therapy Work Phone: Start: 04-23-2023 End: 04-23-[address] Howard Zimmerman Work Phone: [facility] Work Phone: Start: 04-23-2023 End: 04-23-[address] Howard Zimmerman Work Phone: [facility]Cat [facility], [facility] Work Phone: Start: 04-04-2023 End: 04-04-2023 Office outpatient visit 25 minutes Selvin Felder MD Work Phone: Neurology Comment on above: Parkinson's disease without dyskinesia or fluctuating manifestations (Primary Dx) Start: 04-02-2023 End: 04-02-[address] Howard Zimmerman Work Phone: [facility] Work Phone: Start: 04-02-2023 End: 04-02-[address] Howard Zimmerman Work Phone: [facility]-Laboratory, Phy Office 3rd Flr Start: 03-28-[address] Howard rodriguez Work Phone: [facility]Occupational Therapy Work Phone: Start: 03-01-2023 End: 03-01-[address] Howard Zimmerman Work Phone: [facility] Work Phone: Start: 03-01-2023 End: 03-01-[address] Howard Zimmerman Work Phone: [facility], [facility] Work Phone: Start: 02-21-2023 End: 02-21-[address] Howard Zimmerman Work Phone: [facility] Work Phone: Start: 02-21-2023 End: 02-21-[address] Howard Zimmerman Work Phone: [facility]-Laboratory, Phy Office 3rd Flr Start: 02-21-[address] 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 Keith Zimmerman Work Phone: [facility] Work Phone: Start: 01-15-2023 Non-patient / Non-visit Dr. Keith Zimmerman Work Phone: [facility] Work Phone: Start: 01-15-2023 Non-patient / Non-visit Dr. Keith Zimmerman Work Phone: [facility] Start: 01-15-2023 End: 01-16-2023 Evaluation and management of inpatient Dr. Howard Zimmerman Work Phone: [facility]-Progressive Care Unit Work Phone: Start: 01-15-2023 End: 01-16-[address] Howard Zimmerman Work Phone: [facility] Work Phone: Start: 01-05-2023 End: 01-05-[address] Howard Zimmerman Work Phone: [facility] Work Phone: Start: 12-08-2022 End: 12-08-2022 ambulatory [facility] Work Phone: Start: 12-08-2022 End: 12-08-2022 Patient encounter procedure [facility] Services/Neurology Start: 11-29-2022 End: 11-29-2022 ambulatory [facility] Work Phone: Start: 11-29-2022 End: 11-29-2022 Patient encounter procedure [facility]-Pulmonary Services/Neurology Start: 11-20-2022 Telephone encounter Selvin laird MD Work Phone: [facility] Comment on above: Patient Request Start: 10-20-2022 End: 10-20-2022 ambulatory [facility] Work Phone: Start: 10-20-2022 End: 10-20-2022 Patient encounter procedure [facility]-Radiology, [facility] Start: 09-19-2022 End: 09-19-[address] Howard Zimmerman Work Phone: [facility] Work Phone: Start: 09-19-2022 End: 09-19-[address] Howard Zimmerman Work Phone: [facility]-Physical Therapy Start: 08-30-2022 End: 08-30-[address] Howard Zimmerman Work Phone: [facility] Work Phone: Start: 08-30-2022 End: 08-30-[address] Howard Zimmerman Work Phone: [facility]-Laboratory Start: 08-29-2022 End: 08-29-[address] Howard Zimmerman Work Phone: [facility] Work Phone: Start: 08-29-2022 End: 08-29-[address] Howard Zimmerman Work Phone: [facility]-Laboratory, Phy Office 3rd Flr Start: 08-29-[address] 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 Keith Zimmerman Work Phone: [facility] Start: 07-19-2022 End: 07-20-[address] Howard Zimmerman Work Phone: [facility] Work Phone: Start: 07-19-2022 End: 07-20-[address] 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 Keith Zimmerman Work Phone: [facility] Start: 07-05-2022 End: 07-18-[address] Howard Zimmerman Work Phone: [facility] Work Phone: Start: 07-05-2022 End: 07-18-[address] [facility] Start: 06-30-2022 End: 06-30-2022 Subsequent hospital visit by physician Screen Mammo [facility] M[facility] Comment on above: Encounter for screen ing mammogram for malignant neoplasm of breast [Z12.31] Start: 06-28-2022 Non-patient / Non-visit Dr. Keith Zimmerman Work Phone: [facility] Start: 06-23-2022 Non-patient / Non-visit Dr. Keith Zimmerman Work Phone: [facility] Start: 06-14-2022 Non-patient / Non-visit Dr. Keith Zimmerman Work Phone: [facility] Start: 06-14-2022 End: 06-17-[address] Howard Zimmerman Work Phone: [facility] Work Phone: Start: 06-14-2022 End: 06-17-[address] [facility] Start: 06-07-2022 Non-patient / Non-visit [facility]. [facility] Start: 06-01-2022 End: 06-01-[address] Howard Zimmerman Work Phone: [facility] Work Phone: Start: 06-01-2022 End: 06-01-[address] Howard Zimmerman Work Phone: [facility]-Laboratory, Specimen Start: 05-25-2022 End: 05-25-[address] Howard Zimmerman Work Phone: [facility] Work Phone: Start: 05-25-2022 End: 05-25-[address] [facility] Start: 05-12-2022 End: 05-12-2022 Emergency department patient visit Dr. Howard Zimmerman Work Phone: [facility]-Emergency Department Start: 04-19-2022 End: 04-19-[address] Howard Zimmerman Work Phone: [facility], Phy Office 3rd Flr Start: 04-14-2022 End: 04-14-2022 Emergency department patient visit Dr. Howard Zimmerman Work Phone: [facility]-Emergency Department Start: 04-10-2022 End: 04-10-[address] Howard Zimmerman Work Phone: [facility] Work Phone: Start: 04-10-2022 End: 04-10-[address] Howard Zimmerman Work Phone: [facility], [facility] Start: 04-07-2022 End: 04-07-[address] Howard Zimmerman Work Phone: [facility] Work Phone: Start: 04-07-2022 End: 04-07-[address] Howard Zimmerman Work Phone: [facility]-Pulmonary Services/Neurology Start: 04-06-2022 End: 04-06-[address] Howard Zimmerman Work Phone: [facility] Work Phone: Start: 04-06-2022 End: 04-06-[address] Howard Zimmerman Work Phone: [facility]-Radiology, [facility] Start: 04-04-2022 Telephone encounter Irasema Armenta MD Work Phone: OB/Gynecology Comment on above: Orders Start: 03-30-2022 End: 03-30-[address] Howard Zimmerman Work Phone: [facility] Start: 03-08-2022 Telephone encounter Bart cassidy DO Work Phone: Hematology/Oncology Comment on above: Results (CT A/P) Start: 03-07-2022 End: 03-07-[address] Howard Zimmerman Work Phone: [facility] Work Phone: Start: 03-07-2022 End: 03-07-[address] Howard Zimmerman Work Phone: [facility]-Pulmonary Services/Neurology Start: 03-06-2022 End: 03-06-[address] Howard Zimmerman Work Phone: [facility] Work Phone: Start: 03-06-2022 End: 03-06-[address] Howard Zimmerman Work Phone: [facility]-Laboratory, Phy Office 3rd Flr Start: 02-14-2022 [...] encounter procedure Dr. Howard Zimmerman Work Phone: [facility]Labor[facility] Start: 12-05-2021 Telephone encounter Bart cassidy DO Work Phone: Hematology/Oncology Comment on above: Patient Update Start: 11-23-2021 End: 11-23-[address] Howard Zimmerman Work Phone: [facility] Start: 11-21-2021 End: 11-21-[address] 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 Howard Zimmerman MD Work Phone: Start: 01-29-2025 Vitamin D, 25-hydrox y measurement Dr. Howard Zimmerman MD Work Phone: Comment on above: Vitamin D StatusDefi ciency: <20 ng/mL (50nmol/L)Insufficiency: 20-30 ng/mL (50-75 nmol/L)Sufficiency: 30-100 ng/mL (75-250 nmol/L)Toxicity: >100 ng/mL (>250 nmol/L) Start: 11-27-2024 Lymphocyte percent differential count Dr. [...] Ecg routine ecg w/least 12 lds w/i&r [place] Alise Vigil MD Start: 01-08-2017 End: 01-08-2017 Follow Up Appt 1 year Bart Marquez Start: 01-08-2017 End: 01-08-2017 PFM Bart Olivarez MD Start: 06-26-2016 End: 06-28-2016 *BMP Gonzalez A Bernard BACKGROUND INVESTIGATOR-C Start: 06-26-2016 End: 06-28-2016 *CBC with Differential Gonzalez A Bernard BACKGROUND INVESTIGATOR- C Start: 06-26-2016 End: 12-26-2016 Follow Up Appt Other Gonzalez A Bernard BACKGROUND INVESTIGATOR-C Start: 06-26-2016 End: 06-28-2016 Magnesium [Mass/volume] in Serum or Plasma Gonzalez A Bernard BACKGROUND INVESTIGATOR-C Start: 04-13-2016 End: 12-26-2016 *Hepatic Function Panel [...] DTaP,Tdap,Td Vaccine (3 - Td or Tdap) [facility] Start: 08-15-2025 DIABETES SCREEN DIABETES SCREEN [facility] Start: 08-15-2025 Diabetes Screening Diabetes Screening [facility] Start: 05-04-2025 End: 05-04-2025 Patient encounter procedure 05/04/2025 11:00 AM EST Office Visit Neurology [address] [id number] Selvin Felder MD [address] [id number] 6 month follow up Neurology Comment on above: 6 month follow up Start: 02-16-2025 Influenza vaccination Influenza Vaccine (Season Ended) [facility] Start: 02-14-2025 DIABETES SCREEN DIABETES SCREEN [facility] Start: 10-20-2024 End: 10-20-2024 Patient encounter procedure 10/20/2024 11:00 AM EDT Office Visit Neurology [address] [id number] Selvin Felder MD [address] [id number] 6 month follow up Neurology Comment on above: 6 month follow up Start: 07-04-2024 End: 07-04-2024 Patient encounter procedure 07/04/2024 1:40 PM EST Office Visit [facility] [address] [facility] [place] [place] [address] Irasema Armenta MD [address] [place] [place] [address] annual OB/Gynecology Comment on above: annual Start: 06-18-2024 Advance Directive Discussion Advance Directive Discussion [facility] Start: 04-21-2024 End: 04-21-2024 Patient encounter procedure 04/21/2024 11:00 AM EST Office Visit Neurology [address] [address] Selvin Felder MD [address] [address] 6 month follow up Neurology Comment on above: 6 month follow up Start: 02-22-2024 End: 02-22-[address] [facility] Laboratory Comment on above: CBC/LDH 6 MO OV/ LABS CBC/ L DH * Start: 02-17-2024 Covid-19 Vaccine ( season) Covid-19 Vaccine ( season) [facility] Start: 02-17-2024 Influenza vaccination Influenza Vaccine (#1) [facility] Start: 10-19-2023 Blood chemistry [facility] Start: 10-12-2023 Blood chemistry [facility] Start: 10-04-2023 Patient discharge [facility] Start: 10-03-2023 Development of care plan [place] Start: 09-29-2023 [facility] Start: 09-27-2023 [facility] Start: 09-20-2023 Speech therapy management [facility] Start: 09-20-2023 Speech therapy assessment [facility] Start: 09-19-2023 [facility] Start: 09-15-2023 End: 09-15-2023 [facility] Start: 09-15-2023 Development of care plan [place] Start: 09-15-2023 Developing a treatment plan [facility] Start: 09-14-2023 Admission procedure [facility] Start: 09-14-2023 Measuring intake and output [facility] Start: 09-14-2023 Patient referral to dietitian [facility] Start: 09-14-2023 Referral to occupational therapist [facility] Start: 09-14-2023 Referral to service [facility] Start: 09-14-2023 Vital signs measurements [place] Start: 09-14-2023 [facility] Start: 09-14-2023 Patient discharge [facility] Start: 09-14-2023 [facility] Start: 09-11-2023 Care planning and problem solving actions [facility] Start: 09-11-2023 Telemedicine consultation with patient [facility] Start: 09-11-2023 [facility] Start: 09-08-2023 Following clinical pathway protocol [facility] Start: 09-08-2023 Assessment of risk of venous thromboembolism [facility] Start: 09-08-2023 Insertion of catheter into peripheral vein [facility] Start: 09-08-2023 Providing care according to standard [facility] Start: 09-08-2023 Provision of activity privileges [facility] Start: 09-08-2023 Referral to occupational therapist [facility] Start: 09-08-2023 Referral to service [facility] Start: 09-08-2023 [facility] Start: 09-08-2023 Urinalysis complete panel - Urine [facility] Start: 09-08-2023 Verification routine [facility] Start: 09-08-2023 Admission procedure [facility] Start: 09-08-2023 Hospital admission, emergency, from emergency room, medical nature [facility] Start: 09-08-2023 [facility] Start: 09-08-2023 Patient referral to dietitian [facility] Start: 08-17-2023 End: 11-16-2023 CBC W Auto Differential panel - Blood CBC + DIFF Lab STAT 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) Expected: 08/17/2023, Expires: 11/16/2023 [facility] Work Phone: Comment on above: Expected: 08/17/2023, Expires: Start: 08-17-2023 End: 11-16-2023 Lactate dehydrogenase [Enzymatic activity/volume] in Serum or Plasma LD LACTATE DEHYDRO Lab Routine 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) Expected: 08/17/2023, Expires: 11/16/2023 [facility] Work Phone: Comment on above: Expected: 08/17/2023, Expires: Start: 07-28-2023 [facility] Start: 07-28-2023 Repair intermediate n/h/f/xtrnl gent 2.6-7.5 cm [facility] Start: 06-29-2023 Referral to service [facility] Start: 06-29-2023 Patient discharge [facility] Start: 06-28-2023 Following clinical pathway protocol [facility] Start: 06-28-2023 Aspiration precautions [facility] Start: 06-28-2023 Assessment of risk of venous thromboembolism [facility] Start: 06-28-2023 Cardiac monitoring [facility] Start: 06-28-2023 Catheterization of vein [facility] Start: 06-28-2023 Continuous pulse oximetry [facility] Start: 06-28-2023 Elevation of head of bed [place] Start: 06-28-2023 Exercises [facility] Start: 06-28-2023 Fall prevention [facility] Start: 06-28-2023 Implementation of planned interventions [facility] Start: 06-28-2023 Inhalation therapy procedure [facility] Start: 06-28-2023 Insertion of catheter into peripheral vein [facility] Start: 06-28-2023 Introduction of urinary catheter [facility] Start: 06-28-2023 Measuring intake and output [facility] Start: 06-28-2023 Notification of physician [facility] Start: 06-28-2023 Oxygen therapy [facility] Start: 06-28-2023 Patient referral to dietitian [facility] Start: 06-28-2023 Providing care according to standard [facility] Start: 06-28-2023 Provision of activity privileges [facility] Start: 06-28-2023 Referral to occupational therapist [facility] Start: 06-28-2023 Referral to service [facility] Start: 06-28-2023 Speech therapy assessment [facility] Start: 06-28-2023 Telemedicine consultation with patient [facility] Start: 06-28-2023 Tobacco use cessation education [facility] Start: 06-28-2023 [facility] Start: 06-28-2023 Verification routine [facility] Start: 06-28-2023 Admission procedure [facility] Start: 06-28-2023 Hospital admission, emergency, from emergency room, medical nature [facility] Start: 06-28-2023 Oxygen therapy [facility] Start: 06-28-2023 [facility] Start: 06-18-2023 Advance Directive Discussion Advance Directive Discussion [facility] Start: 06-18-2023 Depression Assessment Depression Assessment [facility] Start: 05-08-2023 Procedure [facility] Start: 02-20-2023 COVID-19 VACCINE (6 - Moderna series) COVID-19 VACCINE (6 - Moderna series) [facility] Start: 02-16-2023 Covid-19 Vaccine ( season) Covid-19 Vaccine ( season) [facility] Start: 02-16-2023 Influenza vaccination [facility] Start: 01-16-2023 Patient discharge [facility] Start: 01-15-2023 Following clinical pathway protocol [facility] Start: 01-15-2023 Ambulation without limitation [facility] Start: 01-15-2023 Assessment of risk of venous thromboembolism [facility] Start: 01-15-2023 Catheterization of vein [facility] Start: 01-15-2023 Insertion of catheter into peripheral vein [facility] Start: 01-15-2023 Measuring intake and output [facility] Start: 01-15-2023 Providing care according to standard [facility] Start: 01-15-2023 Referral to occupational therapist [facility] Start: 01-15-2023 Referral to service [facility] Start: 01-15-2023 Speech therapy assessment [facility] Start: 01-15-2023 [facility] Start: 01-15-2023 Verification routine [facility] Start: 01-15-2023 Admission procedure [facility] Start: 01-15-2023 Patient referral to dietitian [facility] Start: 01-15-2023 [facility] Start: 11-29-2022 [facility] Start: 08-15-2022 End: 10-15-2022 CBC W Auto Differential panel - Blood CBC + DIFF Lab STAT 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) Expected: 08/15/2022, Expires: 10/15/2022 [facility] Work Phone: Comment on above: Expected: 08/15/2022, Expires: 3 Start: 08-15-2022 End: 10-15-2022 Comprehensive metabolic 2000 panel - Serum or Plasma COMP METABOLIC PANEL Lab STAT 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) Expected: 08/15/2022, Expires: 10/15/2022 [facility] Work Phone: Comment on above: Expected: 08/15/2022, Expires: 3 Start: 08-15-2022 End: 10-15-2022 Lactate dehydrogenase [Enzymatic activity/volume] in Serum or Plasma LD LACTATE DEHYDRO Lab Routine 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) Expected: 08/15/2022, Expires: 10/15/2022 [facility] Work Phone: Comment on above: Expected: 08/15/2022, Expires: 3 Start: 06-18-2022 ADVANCE DIRECTIVE DISCUSSION ADVANCE DIRECTIVE DISCUSSION [facility] Start: 06-18-2022 DEPRESSION ASSESSMENT DEPRESSION ASSESSMENT [facility] Start: 05-12-2022 Smpl repair scalp/neck/ax/genit/trun k 2.6-7.5cm RPR S/N/AX/GEN/TRNK2.6-7.5CM [facility] Start: 02-16-2022 Influenza vaccination INFLUENZA (#1) [facility] Start: 02-14-2022 End: 04-16-2022 CBC W Auto Differential panel - Blood CBC + DIFF Lab STAT 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) Expected: 02/14/2022, Expires: 04/16/2022 [facility] Work Phone: Comment on above: Expected: 02/14/2022, Expires: 2 Start: 02-14-2022 End: 04-16-2022 Comprehensive metabolic 2000 panel - Serum or Plasma COMP METABOLIC PANEL Lab Routine 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) Expected: 02/14/2022, Expires: 04/16/2022 [facility] Work Phone: Comment on above: Expected: 02/14/2022, Expires: 2 Start: 02-14-2022 End: 04-16-2022 Lactate dehydrogenase [Enzymatic activity/volume] in Serum or Plasma LD LACTATE DEHYDRO Lab Routine 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) Expected: 02/14/2022, Expires: 04/16/2022 [facility] Work Phone: Comment on above: Expected: 02/14/2022, Expires: 2 Start: 12-22-2021 Procedure [facility] Work Phone: Start: 11-09-2021 COVID-19 VACCINE (5 - Booster for Moderna series) COVID-19 VACCINE (5 - Booster for Moderna series) [facility] Start: 06-18-2021 ADVANCE DIRECTIVE DISCUSSION ADVANCE DIRECTIVE DISCUSSION [facility] Start: 06-18-2021 DEPRESSION ASSESSMENT DEPRESSION ASSESSMENT [facility] Start: 06-28-2019 DIABETES SCREEN DIABETES SCREEN [facility] Start: 06-05-2019 End: 06-05-2019 Office Visit 06/05/2019 Office Visit Orthopedic Surgery Brandon Faye MD [address] [place] [address] [place] [id number] [phone] [facility] [employer]-Box - [employer] Medical [facility] Orthopedics and Sports Medicine [facility] Start: 05-27-2019 Hospital Encounter 05/27/2019 Hospital Encounter General Surgery Brandon Faye MD [address] [facility] [address] [place] [address] [phone] [facility] Start: 05-01-2019 Annual Wellness Visit (AWV) Annual Wellness Visit (AWV) [place], [place] Start: 02-16-2019 Influenza vaccination Flu vaccine (#1) [place], [place] Start: 01-07-2018 End: 01-07-2018 Appointment [facility] Work Phone: Start: 05-07-2017 End: 05-07-2017 Appointment Appointment [facility] Work Phone: Start: 01-08-2017 End: 01-08-2017 *Hepatic Function Panel *Hepatic Function Panel [facility] Work Phone: Start: 01-08-2017 End: 01-08-2017 Follow Up Appt 1 year Follow Up Appt 1 year [facility] Work Phone: Start: 01-08-2017 End: 01-08-2017 Lipid panel [AGGREGATE] *Lipid Profile CC PCP [facility] Work Phone: Start: 01-08-2017 End: 01-08-2017 PFM PFM [facility] Work Phone: Start: 12-26-2016 End: 07-03-2016 *Hepatic Function Panel *Hepatic Function Panel [facility] Work Phone: Start: 12-26-2016 End: 07-03-2016 Lipid panel [AGGREGATE] *Lipid Profile CC PCP [facility] Work Phone: Start: 06-26-2016 End: 06-28-2016 *BMP *BMP [facility] Work Phone: Start: 06-26-2016 End: 06-28-2016 *CBC with Differential *CBC with Differential [facility] Work Phone: Start: 06-26-2016 End: 12-26-2016 Follow Up Appt Other Follow Up Appt Other [facility] Work Phone: Start: 06-26-2016 End: 06-28-2016 Magnesium *Magnesium [facility] Work Phone: Start: 04-13-2016 End: 12-26-2016 *Hepatic Function Panel *Hepatic Function Panel [facility] Work Phone: Start: 04-13-2016 End: 12-26-2016 Lipid panel [AGGREGATE] *Lipid Profile CC PCP [facility] Work Phone: Start: 01-03-2016 End: 01-03-2016 Echocardiography Echocardiogram (complete) [facility] Work Phone: Start: 01-03-2016 End: 01-03-2016 Follow Up Appt 6 months Follow Up Appt 6 months [facility] Work Phone: Start: 01-03-2016 End: 06-16-2016 Follow Up BP Check Follow Up BP Check [facility] Work Phone: Start: 01-03-2016 End: 10-13-2015 Lipid panel [AGGREGATE] *Lipid Profile CC PCP [facility] Work Phone: Start: 01-03-2016 End: 01-03-2016 MMM MMM [facility] Work Phone: Start: 06-28-2015 End: 07-05-2015 *Hepatic Function Panel *Hepatic Function Panel [facility] Work Phone: Start: 06-28-2015 End: 07-05-2015 Lipid panel [AGGREGATE] *Lipid Profile CC PCP [facility] Work Phone: Start: 06-25-2015 End: 06-25-2015 Follow Up Appt 6 months Follow Up Appt 6 months [facility] Work Phone: Start: 06-25-2015 End: 06-25-2015 PFM PFM [facility] Work Phone: Start: 04-07-2015 End: 04-09-2015 *Hepatic Function Panel *Hepatic Function Panel [facility] Work Phone: Start: 04-07-2015 End: 04-09-2015 Lipid panel [AGGREGATE] *Lipid Profile CC PCP [facility] Work Phone: Start: 11-23-2014 End: 11-23-2014 24 hour holter monitor 24 hour holter monitor [facility] Work Phone: Start: 11-23-2014 End: 11-23-2014 Ecg routine ecg w/least 12 lds w/i&r EKG (In office) [facility] Work Phone: Start: 11-23-2014 End: 11-23-2014 Follow Up Appt 6 months Follow Up Appt 6 months [facility] Work Phone: Start: 11-23-2014 End: 11-23-2014 MMM MMM [facility] Work Phone: Start: 10-06-2014 End: 10-06-2014 *Hepatic Function Panel *Hepatic Function Panel [facility] Work Phone: Start: 10-06-2014 End: 10-06-2014 Lipid panel [AGGREGATE] *Lipid Profile CC PCP [facility] Work Phone: Start: 05-26-2014 End: 05-26-2014 Follow Up Appt Other Follow Up Appt Other [facility] Work Phone: Start: 05-26-2014 End: 05-26-2014 PFM PFM [facility] Work Phone: Start: 01-16-2014 End: 04-07-2014 *Hepatic Function Panel *Hepatic Function Panel [facility] Work Phone: Start: 01-16-2014 End: 04-07-2014 Lipid panel [AGGREGATE] *Lipid Profile CC PCP [facility] Work Phone: Start: 11-24-2013 End: 11-24-2013 Ecg routine ecg w/least 12 lds w/i&r EKG (In office) [facility] Work Phone: Start: 11-24-2013 End: 11-24-2013 Follow Up Appt 6 months Follow Up Appt 6 months [facility] Work Phone: Start: 11-24-2013 End: 11-24-2013 MMM MMM [facility] Work Phone: Start: 09-16-2013 End: 10-20-2013 *Hepatic Function Panel *Hepatic Function Panel [facility] Work Phone: Start: 09-16-2013 End: 10-20-2013 Lipid panel [AGGREGATE] *Lipid Profile CC PCP [facility] Work Phone: Start: 05-01-2013 End: 05-22-2013 Ecg routine ecg w/least 12 lds w/i&r EKG (In office) [facility] Work Phone: Start: 04-08-2013 End: 04-08-2013 24 hour holter monitor 24 hour holter monitor [facility] Work Phone: Start: 04-08-2013 End: 04-08-2013 Ecg routine ecg w/least 12 lds w/i&r EKG (In office) [facility] Work Phone: Start: 04-08-2013 End: 04-08-2013 Follow Up Appt 6 months Follow Up Appt 6 months [facility] Work Phone: Start: 04-08-2013 End: 04-08-2013 Follow Up Appt Other Follow Up Appt Other [facility] Work Phone: Start: 04-08-2013 End: 04-08-2013 PFM PFM [facility] Work Phone: Start: 11-16-2012 End: 12-02-2012 *Hepatic Function Panel *Hepatic Function Panel [facility] Work Phone: Start: 11-16-2012 End: 12-02-2012 Lipid panel [AGGREGATE] *Lipid Profile [facility] Work Phone: Start: 10-11-2012 End: 10-11-2012 Follow Up Appt 6 months Follow Up Appt 6 months [facility] Work Phone: Start: 10-11-2012 End: 10-11-2012 Follow Up Appt Other Follow Up Appt Other [facility] Work Phone: Start: 10-11-2012 End: 10-11-2012 MMM MMM [facility] Work Phone: Start: 05-18-2012 End: 05-24-2012 *Hepatic Function Panel *Hepatic Function Panel [facility] Work Phone: Start: 05-18-2012 End: 05-24-2012 Lipid panel [AGGREGATE] *Lipid Profile [facility] Work Phone: Start: 12-07-2011 End: 12-19-2011 *Hepatic Function Panel *Hepatic Function Panel [facility] Work Phone: Start: 12-05-2011 End: 12-19-2011 Lipid panel [AGGREGATE] *Lipid Profile [facility] Work Phone: Start: 11-09-2011 End: 11-09-2011 Follow Up Appt 1 year Follow Up Appt 1 year [facility] Work Phone: Start: 09-28-2011 MENINGOCOCCAL CONJUGATE (1 - Risk start 2-23 months series) MENINGOCOCCAL CONJUGATE (1 - Risk start 2-23 months series) [facility] Start: 09-28-2011 Meningococcal Conjugate Vaccine (1 - Risk start 2-23 months series) Meningococcal Conjugate Vaccine (1 - Risk start 2-23 months series) [facility] Start: 2001 DEXA (modify frequency per FRAX score) DEXA (modify frequency per FRAX score) [place], [place] Start: 1986 Shingles Vaccine (1 of 2) Shingles Vaccine (1 of 2) [place], [place] Start: 1955 Urine microalbumin profile DTAP,TDAP,TD (1 - Tdap) [facility] Start: 1954 Anxiety Screening Anxiety Screening [facility] Start: 1954 Depression Screening Depression Screening [facility] Start: 1947 DTaP/Tdap/Td vaccine (1 - Tdap) DTaP/Tdap/Td vaccine (1 - Tdap) [place], [place] Start: 1946 Meningococcal B Vaccine (1 of 5 - Increased Risk) Meningococcal B Vaccine (1 of 5 - Increased Risk) [facility] Start: 1946 Meningococcal B Vaccine: Consider Based On Risk (1 of 4 - Increased Risk) Meningococcal B Vaccine: Consider Based On Risk (1 of 4 - Increased Risk) [facility] Start: 1946 MENINGOCOCCAL B: Consider based on risk (1 of 4 - Increased Risk Bexsero 2-dose series) MENINGOCOCCAL B: Consider based on risk (1 of 4 - Increased Risk Bexsero 2-dose series) [facility] Start: 1946 MENINGOCOCCAL B: Consider based on risk (1 of 4 - Increased Risk) MENINGOCOCCAL B: Consider based on risk (1 of 4 - Increased Risk) [facility] Bilirubin measuremen t, urine [facility] Work Phone: End: 05-27-2019 Blood glucose - POCT Blood glucose - POCT Point of Care Testing STAT One Time for 1 Occurrences starting 05/27/2019 until 05/27/2019 [facility] Work Phone: Comment on above: One Time for 1 Occurrences starting 05/18 until 05/27/2019 Cardiac event recording [facility] End: 03-16-2023 Ct abdomen & pelvis w/o contrast material CT ABD/PEL WO IVCON Radiology Routine 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 1 Occurrences starting 02/14/2022 until 03/16/2023 [facility] Work Phone: Comment on above: 1 Occurrences starting 02/14/2022 until 03/16/2023 Hemoglobin [Presence ] in Urine [facility] Work Phone: Incentive spirometry Incentive s pirometry Respiratory Care Routine Q1H PRN until discontinued starting 05/27/2019 [facility] Work Phone: Comment on above: Q1H PRN until discontinued starting 05/18 Initiate Oxygen Ther apy Protocol Initiate Oxygen Therapy Protocol Respiratory Care Routine Daily until discontinued starting 05/27/2019 [facility] Work Phone: Comment on above: Daily until discontinued starting 2018 End: 05-04-2023 GLEN SCREENING GLEN SCREENING Radiology Routine Encounter for screening mammogram for malignant neoplasm of breast 1 Occurrences starting 04/04/2022 until 05/04/2023 [facility] Work Phone: Comment on above: 1 Occurrences starting 04/04/2022 until 05/04/2023 Measurement of keton es in urine using dipstick [facility] Work Phone: Microscopic urinalysis [facility] Work Phone: Patient Education [facility] Work Phone: Patient referral [facility] Work Phone: pH of Urine [facility] Work Phone: Phase I & II - meter ed glucose Phase I & II - metered glucose Point of Care Testing Routine As Needed until discontinued starting 05/27/2019 [facility] Work Phone: Comment on above: As Needed until discontinued starting Procedure [facility] Work Phone: PT PLAN OF CARE CERTIFICATION PT PLAN OF CARE CERTIFICATION Procedures Routine Parkinson's disease (HCC) Abnormality of gait Ordered: 07/18/2022 [facility] Work Phone: Comment on above: Ordered: 07/18/2022 End: 05-27-2019 Pulse Oximetry Spot Check Pulse Oximetry Spot Check Respiratory Care Routine One Time for 1 Occurrences starting 05/27/2019 until 05/27/2019 [facility] Work Phone: Comment on above: One Time for 1 Occurrences starting 05/18 until 05/27/2019 Specific gravity of Urine [facility] Work Phone: Urinalysis, blood, qualitative [facility] Work Phone: Urine dipstick for glucose [facility] Work Phone: Urine dipstick for leukocyte esterase [facility] Work Phone: Urine dipstick for nitrite [facility] Work Phone: Urine dipstick for protein [facility] Work Phone: Urine examination [facility] Work Phone: Urine microscopy: epithelial cells [facility] Work Phone: Urine Microscopy: wh ite cells [facility] Work Phone: Urobilinogen [Presen ce] in Urine [facility] Work Phone: [facility] Immunizations Immunization Date Immunization Notes Care Provider Fa [facility] 11-14-2023 Covid (Spikevax) Dr. Howard barron MD Work Phone: [facility] 02-22-2023 influenza (aIIV4) vaccine, age 65+ yr, quadrivalent, PF (FLUAD QUAD) Selvin Felder MD Work Phone: [facility] Work Phone: 02-22-2023 influenza, injectabl e, quadrivalent, preservative free Dr. Howard Zimmerman Work Phone: [facility] 02-22-2023 respiratory syncytia l virus (RSV) vaccine, adjuvanted (AREXVY) Selvin Felder MD Work Phone: [facility] Work Phone: 02-22-2023 influenza virus vacc ine, unspecified formulation Selvin Feldre MD Work Phone: [facility] 01-15-2023 tetanus toxoid, redu carlton diphtheria toxoid, and acellular pertussis vaccine, adsorbed Dr. Howard Zimmerman Work Phone: [facility] 10-20-2022 Covid Moderna Bivale nt Booster Dr. Howard Zimmerman MD Work Phone: [facility] 05-12-2022 tetanus toxoid, redu carlton diphtheria toxoid, and acellular pertussis vaccine, adsorbed Dr. Howard Zimmerman Work Phone: [facility] 09-14-2021 Covid (Moderna) Dr. Howard Zimmerman MD Work Phone: [facility] 04-06-2021 COVID-19 vaccine, fu ll dose (MODERNA) Sridevi Solo MD Work Phone: [facility] Work Phone: 02-03-2021 influenza, injectabl e, quadrivalent, contains preservative Sridevi Solo MD Work Phone: [facility] Work Phone: 02-03-2021 influenza, injectabl e, quadrivalent, preservative free Dr. Howard Zimmerman MD Work Phone: [facility] 08-13-2020 COVID-19 vaccine, fu ll dose (MODERNA) Sridevi Solo MD Work Phone: [facility] Work Phone: 07-16-2020 COVID-19 vaccine, fu ll dose (MODERNA) Sridevi Solo MD Work Phone: [facility] Work Phone: 02-10-2020 influenza, injectabl e, quadrivalent, contains preservative Sridevi Solo MD Work Phone: [facility] Work Phone: 02-10-2020 influenza, injectabl e, quadrivalent, preservative free Dr. Howard Zimmerman MD Work Phone: [facility] 08-06-2019 zoster vaccine recombinant Sridevi Solo MD Work Phone: [facility] Work Phone: 04-08-2019 zoster vaccine recombinant Sridevi Solo MD Work Phone: [facility] Work Phone: 02-20-2019 pneumococcal conjuga te vaccine, 13 valent Sridevi Solo MD Work Phone: [facility] Work Phone: 02-20-2019 Seasonal trivalent influenza vaccine, adjuvanted, preservative free Selvin Felder MD Work Phone: [facility] Work Phone: 03-21-2018 influenza, high dose seasonal, preservative-free Selvin Felder MD Work Phone: [facility] Work Phone: 03-05-2013 influenza, injectabl e, quadrivalent, preservative free Dr. Howard Zimmerman MD Work Phone: [facility] 03-05-2013 influenza, seasonal, injectable Selvin Felder MD Work Phone: [facility] Work Phone: 04-05-2012 influenza virus vacc ine, whole virus Selvin Felder MD Work Phone: [facility] Work Phone: 04-05-2012 influenza, injectabl e, quadrivalent, preservative free Dr. Howard Zimmerman MD Work Phone: [facility] 03-18-2012 influenza virus vacc ine, unspecified formulation Sridevi Solo MD Work Phone: [facility] 08-16-2011 haemophilus influenz ae type b vaccine, HbOC conjugate Sridevi Solo MD Work Phone: [facility] Work Phone: 08-03-2011 Meningococcal, MCV4, unspecified conjugate formulation(groups A, C, Y and W-135) Sridevi Solo MD Work Phone: [facility] Work Phone: 08-03-2011 pneumococcal polysaccharide vaccine, 23 valent Sridevi Solo MD Work Phone: [facility] Work Phone: 04-11-2010 pneumococcal polysaccharide vaccine, 23 valent Bart Brooks DO Work Phone: [facility] Work Phone: 03-25-2010 influenza virus vacc ine, whole virus Selvin Felder MD Work Phone: [facility] Work Phone: 03-25-2010 influenza, injectabl e, quadrivalent, preservative free Dr. Howard Zimmerman MD Work Phone: [facility] 06-02-2009 novel influenza-H1N1 -09, preservative-free, injectable Sridevi Solo MD Work Phone: [facility] Work Phone: 04-16-2007 influenza virus vacc ine, whole virus Selvin Felder MD Work Phone: [facility] Work Phone: 04-16-2007 influenza, injectabl e, quadrivalent, preservative free Dr. Howard Zimmerman MD Work Phone: [facility] Payers Date Payer Category Payer Medicare [id number] 2024 Self-pay [id number] 2021 Medicare AETNA MEDICARE A ETNA MEDICARE PPO [id number] 2021-Present [phone] [facility] [id number] [place] [address] [facility] [id number] 2021 Medicare (Managed Care) AETNA ME DICARE [id number] 2019 Medicare AETNA MEDICARE A ETNA MEDICARE-ADVANTAGE PPO [id number] 2019-Present [address] [place] [address] Medicare [id number] 2009 Medicare [id number] 2009 Private Health Insurance [facility] [id number] Unknown [id number] 2.16.840.1.404769.3.579.2. 462 Unknown [id number] 2.16.840.1.028290.3.579.2. 462 Unknown [id number] 2.16.840.1.512930.3.579.2. 462 Unknown [id number] 2.16.840.1.138088.3.579.2. 462 Unknown [id number] 2.16.840.1.390744.3.579.2. 462 Unknown [id number] 2.16.840.1.491953.3.579.2. 462 Unknown [id number] 2.16.840.1.002952.3.579.2. 462 Unknown [id number] 2.16.840.1.666630.3.579.2. 462 Unknown [id number] 2.16.840.1.366102.3.579.2. 462 Unknown [id number] 2.16.840.1.441176.3.579.2. 462 Unknown [id number] 2.16.840.1.225801.3.579.2. 462 Unknown [id number] 2.16.840.1.264854.3.579.2. 462 Unknown [id number] 2.16.840.1.290219.3.579.2. 462 Unknown [id number] 2.16.840.1.094553.3.579.2. 462 Unknown [id number] 2.16.840.1.523733.3.579.2. 462 Unknown [id number] 2.16.840.1.728969.3.579.2. 462 Unknown [id number] 2.16.840.1.171124.3.579.2. 462 Unknown [id number] 2.16.840.1.279591.3.579.2. 462 Unknown [id number] 2.16.840.1.895104.3.579.2. 462 Unknown [id number] 2.16.840.1.863876.3.579.2. 462 Unknown [id number] 2.16840.1.120752.3.579.2. 462 Unknown [id number] 2.16.840.1.771595.3.579.2. 462 Unknown [id number] 2.16.840.1.802733.3.579.2. 462 Unknown [id number] 2.16.840.1.735126.3.579.2. 462 Unknown [id number] 2.16.840.1.520382.3.579.2. 462 Unknown [id number] 2.840.1.441512.3.579.2. 462 Unknown [id number] 2.16.840.1.979427.3.579.2. 462 Unknown [id number] 2.16.840.1.590611.3.579.2. 462 Unknown [id number] 2.16.840.1.254370.3.579.2. 462 Unknown [id number] 2.16.840.1.494341.3.579.2. 462 Unknown [id number] 2.16840.1.966244.3.579.2. 462 Unknown [id number] 2.16.840.1.142004.3.579.2. 462 Unknown [id number] 2.16.840.1.594912.3.579.2. 462 Unknown [id number] 2.16.840.1.000897.3.579.2. 462 Unknown [id number] 2.16.840.1.636381.3.579.2. 462 Unknown [id number] 2.16.840.1.253367.3.579.2. 462 Unknown [id number] 2.16.840.1.401655.3.579.2. 462 Social History Date Type Detail Facility Start: 2019 End: 05-14-2024 Tobacco smoking status NHIS Never smoker [facility] Start: 2019 End: 05-27-2019 [facility]: 2019 History SDOH Alcohol Frequency 1 [place], [place] Start: 1935 Sex Assigned At Not on file [place] Start: 09-19-2021 End: 10-20-2024 Alcohol intake Current non-drinker of alcohol (finding) [facility] Start: 09-09-2021 End: 02-14-2022 Exposure to SARS-CoV-2 (event) Not sure [facility] Start: 11-23-2021 End: 01-15-2023 Tobacco smoking status RIIS Unknown if ever smoked [facility] Start: 11-08-2020 Homeless [facility] Start: 11-08-2020 Non-smoker [facility] Start: 1935 Sex Assigned At Female [facility] Start: 07-05-2022 Tobacco use and exposure Smokeless tobacco non-user [facility] Start: 02-13-2023 End: 10-20-2024 History of Social function [facility] Start: 02-13-2023 End: 10-20-2024 Tobacco use panel [facility] Adult Depression Screening Assessment 0 [facility] Start: 09-18-2024 End: 10-03-2024 Sex Female (finding) [facility] Medical Equipment Procedure Code Equipment Code Equipment Origin al Text Equipment Identifier Dates Primary uncemented hemiarthroplasty of hip Orthopaedic cement, non-antimicrobial ()[id number] FDA Start: 12-23-2023 Primary uncemented hemiarthroplasty of hip ([id number]) Metallic femoral head prosthesis ()[id number] FDA Start: 12-23-2023 Primary uncemented hemiarthroplasty of hip ([id number]) Orthopaedic cement spacer ()[id number] FDA Start: 12-23-2023 Primary uncemented hemiarthroplasty of hip ([id number]) Bipolar femoral head outer component, hemiarthroplasty ()[id number] FDA Start: 12-23-2023 Primary uncemented hemiarthroplasty of hip ([id number]) Coated hip femur prosthesis, modular ()[id number] FDA Start: 12-23-2023 Primary uncemented hemiarthroplasty of hip Orthopaedic cement, antimicrobial ()[id number] FDA Start: 12-23-2023 Goals Date Patient Goal Desired Activity /State Functional Status Date Assessment Result Facility 10-04-2023 Functional status Ambulates [facility] Work Phone: 09-14-2023 Functional status Ambulates [facility] Work Phone: 06-29-2023 Functional status Ambulates [facility] Work Phone: 01-16-2023 Functional status Ambulates [facility] Work Phone: 10-07-2021 Functional Status OBJECTIVE Posture: WNL Gait: amb with large step length and arm swing, no AD Transfers: able to perform sit to stand with no UE support Coordination: hand gestures, toe tapping, arm rolls - symmetyrical, no abnormalties AROM: WNL PROM: WNL MMT: grossly 4+/5 except hip adductors 4/5 and bilat hamstrings 4/5 [employer] strength L: 45 lbs - pt is left hand dominant [employer] strength R: 30 lb TUG- 8 seconds Gan out of 56 Activity-Specific Balance Confidence Scale (ABC): 87% [facility] 11-23-2014 Are you deaf, or do you have serious difficulty hearing Yes 11/23/2014 8:52 AM EDT Magaly Dodson Ma, [place] Yes [facility] 11-23-2014 Are you blind, or do you have serious difficulty seeing, even when wearing glasses No 11/23/2014 8:52 AM EDT Magaly Dodson Ma, MA No [facility] 11-23-2014 Do you have serious difficulty walking or climbing stairs No 11/23/2014 8:52 AM EDT Magaly Dodson Ma, [place] No [facility] 11-23-2014 Do you have difficul ty dressing or bathing No 11/23/2014 8:52 AM EDT Magaly Dodson Ma, [place] No [facility] 11-23-2014 Because of a physica l, mental, or emotional condition, do you have difficulty doing errands alone such as visiting a physician's office or shopping No 11/23/2014 8:52 AM EDT Magaly Dodson Ma, MA No [facility] Mental Status Date Assessment Result Facility 10-04-2023 Cognitive function Voice/Name [facility] Work Phone: 09-26-2023 Cognitive function Appropriate;Cooperativ e [facility] Work Phone: 09-14-2023 Cognitive function Voice/Name [facility] Work Phone: 09-08-2023 Cognitive function Level Of Cons ciousness Drowsy [facility] Work Phone: 06-29-2023 Cognitive function Voice/Name [facility] Work Phone: 06-28-2023 Cognitive function Voice/Name [facility] Work Phone: 01-16-2023 Cognitive function Voice/Name Chitra Neal [facility] Work Phone: 11-23-2014 Because of a physica l, mental, or emotional condition, do you have serious difficulty concentrating, remembering, or making decisions No 11/23/2014 8:52 AM EDT Magaly Dodson Ma, [place] No [facility] Clinical Notes 05-27-2019 to 10-20-2024 Selvin Felder MD - 10/20/2024 11:36 AM EDTPatient InstructionsPatient InstructionsAppSelvin soares MD - 04/21/2024 11:22 AM ESTTelephone Encounter - Maria Eugenia Virgen MA - 04/21/2024 11:02 AM EST Note Date & Type Note Facility 10-20-2024 Note HNO ID: [id number] Author: SELVIN FELDER MD Service: ? Author Type: Physician Type: Progress Notes Filed: 10/20/2024 11:40 Note Text: [facility] - FOLLOW UP EVALUATION Primary Movement Disorders Neurologist: Selvin Felder MD Primary Movement Disorders TONE: Not yet assigned Recording using ambient [employer] software for draft documentation of the visit was discussed with the patient/authorized automobile sales representative; all questions welcomed and answered. Patient/authorized automobile sales representative agreed to proceed Howard Zimmerman MD [address] [facility] [address] [address] Dear Howard Zimmerman MD: I had the [...] endorse any fluid restrictions advised by a basket maker. She reports persistent fatigue, stating, "I just [...] and mental health (more content not included)... [facility] 10-20-2024 History of Presen t illness Narrative [facility] - FOLLOW UP EVALUATION Primary Movement Disorders Neurologist: Selvin Felder MD Primary Movement Disorders TONE: Not yet assigned Recording using ambient [employer] software for draft documentation of the visit was discussed with the patient/authorized automobile sales representative; all questions welcomed and answered. Patient/authorized automobile sales representative agreed to proceed Howard Zimmerman MD [address] [address] Dear Howard Zimmerman MD: I had the [...] endorse any fluid restrictions advised by a basket maker. She reports persistent fatigue, stating, "I just [...] or around: 04/22/25 Level of service : 25953 ( 30-39 min). Time spent 34 min on the day of service, which included preparing to see the patient, pvng-yf-govd patient care, completing clinical documentation, performing a medically appropriate examination, and counseling and educating the patient/family/caregiver. Thank you for allowing me to be part of the clinical care of this patient! I look forward to continued participation in the patient s care with you. Please do not hesitate to call with any questions. Sincerely, Selvin Felder MD documented in this encounter [facility] 10-20-2024 Instructions Selvin Felder MD [...] or you can send a message through [employer]. You can also now schedule and select appointments through [employer]. Selvin Felder MD documented in this encounter [facility] 04-21-2024 Instructions Selvin Felder MD [...] or you can send a message through [employer]. You can also now schedule and select appointments through [employer]. Selvin Felder MD documented in this encounter [facility] 04-21-2024 Note HNO ID: [id number] Author: SELVIN FELDER MD Service: ? Author Type: Physician Type: Progress Notes Filed: 04/21/2024 19:56 Note Text: [facility] - FOLLOW UP EVALUATION Howard Zimmerman MD [address] [place] [address] I had the pleasure of seeing Ms. 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 [facility] 04-21-2024 History of Presen t illness Narrative [facility] - FOLLOW UP EVALUATION Howard Zimmerman MD [address] [address] I had the pleasure of seeing Ms. 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 Time spent 34 min on the day of service, which included preparing to see the patient, uics-qe-ajzn patient care, completing clinical documentation, performing a [...] Selvin Felder MD documented in this encounter [facility] 04-21-2024 Telephone encounter Note Checked james patient not present at time of visit [facility] 04-21-2024 Miscellaneous Notes Checked james patient not present at time of visit documented in this encounter [facility] 10-18-2023 Instructions Selvin Felder MD [...] please feel free to send me a [employer] message or contact the office - Continue PT, exercise - Movement Disorders Medication Schedule: Medications 8a 1p 6p Sinemet 25/100 2 2 2 Return at or around: 04/19/24 If there are any concerns before your next visit, please call or you can send a message through [employer]. You can also now schedule and select appointments through [employer]. Selvin Felder MD documented in this encounter [facility] 10-18-2023 History of Presen t illness Narrative [facility] - FOLLOW UP EVALUATION No referring provider defined for this encounter. Howard Zimmerman MD [address] [facility] [address] [address] I had the pleasure of seeing Ms. [...] please feel free to send me a [employer] message or contact the office - PT - Interval History: Still off balance. PT Helps. Has been fairly consistent with exercise. Since last hospitalized she was in the hospital and went to rehab. Just moved to [place]. Getting PT now at [place]. Biting tongue if asleep or awake, reading. [...] please feel free to send me a [employer] message or contact the office - It [...] or around: 04/19/24 Level of service : 58017 ( 30-39 min). Time spent 33 min on the day of service, which included preparing to see the patient, njyb-le-xxqx patient care, completing clinical documentation, performing a medically appropriate examination, and counseling and educating the patient/family/caregiver. Thank you for allowing me to be part of the clinical care of this patient! I look forward to continued participation in the patient s care with you. Please do not hesitate to call with any questions. Sincerely, Selvin Felder MD documented in this encounter [facility] 10-03-2023 Discharge summary Note Date/Time October 03, 2023 7:40am [facility] Medical Records Department [address] [place] [address] Discharge Summary 10/03/23 0737 MR#: [id number] Acct: [id number] Name: KAYLENE HAYNES LY Rep #:[id number] : 1935 88 From: Howard Zimmerman MD PCP: Dr. Howard Zimmerman MD Status:ADM I N Location: [place] [address] Providers Date of Admission: 09/14/23 Primary Care [...] she always tells me no. Discharge to [facility] 10/04/2023, [facility] PT/OT/ST. Physical Exam Const alert General Appearance: [...] and Uncontrolled pain Additional Instructions: Discharge to [facility] 10/04/2023, [facility] PT/OT/ST. Please Follow Up With: [facility] Cardiology When: As scheduled. Meaningful Use Info Meaningful Use Diagnoses (Choose all that apply): None applicable Discharge Plan Admission Admit Date/Time: 09/14/23 15:33 Primary Reason for Your Visit: Debility. Attending Provider: Howard Zimmerman Chi Primary Care Provider: Howard Zimmerman Chi Instructions Additional Instructions / Restrictions: Discharge to [facility] 10/04/2023, [facility] PT/OT/ST. Discharge Orders/Prescriptions Prescriptions: New ascorbic acid [...] THAT PT USES EYE DROPS MADE AT [facility] THAT IS MADE WITH HER BLOOD. [...] Howard Zimmerman MD~ Signed ADDENDUM by Dr. Howadr Zimmerman MD on 10/03/23 at 1731 Addendum Discharge to [facility] 10/04/2023, Outpatient PT/OT/ST. 10/03/23 1731<Electronically signed by Howard Zimmerman MD> Cosigner Signature (if applicable): cc: Dr. Howard Zimmerman MD ~* Signed [facility] Work Phone: 1(580) 929-737104-01-2024 Progress note Author Howard Zimmerman [facility] September 17, 2023 5:09pm Note Date/Time September 17, 2023 11:4 5am [facility] Medical Records Department [address] [place] [address] Progress Note - Pharmacy 09/17/23 1144 MR#: [id number] Acct: [id number] Name: KAYLENE HAYNES Rep #:[id number] : 1935 88 From: Antonia Woodson PCP: Dr. Howard Zimmerman MD Status:ADM I N Location: [facility] TCU13-1 Documented by User: Antonia Christian 09/17/23 16:49 TCU RX Drug Regimen Review Subjective/Objective Subjective/Objective: Subjective: 88 YOF presents to [facility] ED 09/08/23 due to fall with diagnosis [...] 120 Ml Liquid PO Not Given TIDCM ARIA Prochlorperazine Maleate 5 mg 09/17/23 07:51 09/17/23 [...] User: Dr. Howard Zimmerman MD 09/17/23 17:09 TCU RX Drug Regimen Review Provider Comments Provider responsibility Provider Comments to Recommendations by Pharmacy: Agree 09/17/23 8379 <Electronically signed by Antonia Christian> Antonia Christian Cosigner Signature (if applicable): 09/17/23 1709 <Electronically signed by Howard Zimmerman MD> CC: ~ Signed [facility] Work Phone: 1(469) 343-871203-29-2024 History and physical note Author Howard Erasmo [facility] September 14, 2023 6:10pm Note Date/Time September 14, 2023 6:0 4pm [facility] System Medical Records Department [address] [place] [address] History & Physical Exam 09/14/23 1755 MR#: [id number] Acct: [id number] Name: KAYLENE HAYNES Rep #:[id number] : 1935 88 From: Howard Zimmerman MD PCP: Dr. Howard Zimmerman MD Status:ADM I N Location: TCU [place] [address] HPI - General General Date of Admission: 09/14/23 Date of Service: 09/14/23 Chief Complaint: Here for rehabilitation. HPI Narrative 09/08/2023 KAYLENE HAYNES, is a 88 Female who presents to [facility] ED with syncope. Found unconscious on commode, unresponsive. Found by son, not talking in AM for several months, thought progression of Parkinson Disease. Fell 2 days ago, hurt right hip. Labs okay, EKG okay. X-ray right hip negative, CT brain negative, CT cervical spine negative, Chest X-ray negative. 09/08/2023 Admit to [facility]. PT/OT for Debility. 09/09/2023 UA negative, WBC 18.7. PT/OT for SNF. 09/09/2023 Mild agitation, Seroquel x 1 dose given. 09/10/2023 PT/OT for TCU. Risperdal QHS for delirium. Monitor anemia. 09/11/2023 Check EEG for syncope. 09/11/2023 EEG showed mild diffuse encephalopathy, no seizure activity. 09/12/2023 Doing okay, Await Pre-CERT for SNF. PT/OT SNF. 09/13/2023 No issues. Await Pre-CERT TCU. Risperdal helpful for sundowning. 09/14/2023 Admit to TCU with debility, here for rehabilitation, strengthening, prior to discharge home alone or possibly to [facility] Medical History (Updated 09/14/23 @ 18:02 by [...] would be willing to move to [facility], she always tells me no. * [...] applicable): CC: Dr. Howard Zimmerman MD~ Signed [facility] Work Phone: 1(648) 511-344303-29-2024 Discharge summary Author Maame Pinon [facility] September 14, 2023 11:51am Note Date/Time September 14, 2023 11: 51am [facility] Medical Records Department [address] [place] [address] Transfer to [facility] MR#: [id number] Acct: [id number] Name: KAYLENE HAYNES LY Rep #:[id number] : 1935 88 From: Maame Pinon DO PCP: Dr. Howard Zimmerman MD Status:ADM I NO Certification of patient admission REQUIRED AT TIME OF ADMISSION. I CERTIFY THAT POST-HOSPITAL ECF SERVICES ARE REQUIRED TO BE GIVEN ON AN IN-PATIENT BASIS BECAUSE OF THE ABOVE NAMED PATIENT'S NEED FOR SHELTER CARE ON A CONTINUING BASIS FOR THE CONDITION(S) FOR WHICH HE/SHE WAS RECEIVINGIN-PATIENT HOSPITAL SERVICES PRIOR TO HIS/HER TRANSFER TO THE F. 09/14/23 1151<Electronically signed by Maame Zi DO> Diet Diet Order/Speech Therapy: 09/08/23 14:41 [...] Marly Ochoa DO; Roopa Tolbert MD ~ [facility] Work Phone: 1(542) 158-584503-29-2024 Discharge summary Author Maame Pinon [facility] September 14, 2023 1:41pm Note Date/Time September 14, 2023 11: 51am [facility] Medical Records Department [address] [place] [address] Discharge Summary 09/14/23 1151 MR#: [id number] Acct: [id number] Name: KAYLENE HAYNES LY Rep #:[id number] : 1935 88 From: Maame Pinon DO PCP: Dr. Howard Zimmerman MD Status:ADM I NO [facility] Providers Date of Admission: 09/08/23 Date of Discharge: 09/14/23 Primary Care Physician: Dr. Howard Zimmerman MD Consultations 09/11/23 10:49 neuro [Consult: Tele-Neurology] Routine Consulting Provider: [facility] Reason for Consult: syncope?/Fall EMERGENT Consult: No Notified: Yes Date Notified: 09/11/23 Time Notified: [...] who presented to the emergency department at [facility] on 09/08/2023 after a fall. She [...] risperidone at night to help with her as it was a significant issue early [...] Marly Ochoa; Carlos Whipple; Darcy Hernandez; Paige Martinze; Timothy Fortune; Cherie Mark; Jose Benson; Isiah [...] Fdc Facility Charges/Coding Visit Charges Inpatient E&M: 09138 SNF Disch >30 Min 09/14/23 1341 <Electronically signed by Maame Pinon DO> Cosigner Signature (if applicable): CC: Dr. Maame Pinon DO; Dr. Howard Zimmerman MD~ Signed [facility] Work Phone: 1(692) 583-539503-28-2024 Progress note Author Maame Pinon [facility] September 13, 2023 4:24pm Note Date/Time September 13, 2023 4:2 4pm [facility] Medical Records Department [address] [place] [address] Progress Note - Hospitalist 09/13/23 1622 MR#: [id number] Acct: [id number] Name: KAYLENE HAYNES LY Rep #:[id number] : 1935 88 From: Maame Pinon DO PCP: Dr. Howard Zimmerman MD Status:ADM I NO Location: [facility] LV530-0 Reason for Visit Reason for Visit: Weakness/Debility Subjective Subjective No issues overnight. Patient is very pleasantly awaiting pre-CERT for [facility] placement. Objective Data Objective Data Vital Signs: Vital Signs Temp Pulse Resp BP Pulse Ox O2 Del Method 97.8 F 72 18 98/69 98 Room Air 09/13/23 14:09/13/23 14:09/13/23 14:24 14:09 09/13/23 14:09 09/13/23 14:09 Oxygen Delivery [...] pre-CERT from insurance company for discharge to halfway facility for ongoing rehab services. Charges/Coding Visit Charges Inpatient E&M: 16711 Subs Hosp L1 09/13/23 1624 <Electronically signed by Maame Pinon DO> Cosigner Signature (if applicable): CC: ~ Signed [facility] Work Phone: 1(511) 932-434503-27-2024 Progress note Author Maame Pinon [facility] September 12, 2023 4:49pm Note Date/Time September 12, 2023 4:4 6pm [facility] Medical Records Department [address] [place] [address] Progress Note - Hospitalist 09/12/23 1644 MR#: [id number] Acct: [id number] Name: KAYLENE HAYNES Rep #:[id number] : 1935 88 From: Maame Pinon DO PCP: Dr. Howard Zimmerman MD Status:ADM I NO Location: [place] [address]1 Reason for Visit Reason for Visit: Debility/weakness [...] pre-CERT from insurance company for discharge to halfway facility for ongoing rehab services. Charges/Coding Visit Charges Inpatient E&M: 50488 Subs Hosp L1 09/12/23 6744 <Electronically signed by Maame Pinon DO> Cosigner Signature (if applicable): CC: ~ Signed [facility] Work Phone: 1(951) 896-244403-26-2024 Progress note Author Maame Pinon [facility] September 11, 2023 4:15pm Note Date/Time September 11, 2023 4:1 5pm [facility] Medical Records Department [address] [place] [address] Progress Note - Hospitalist 09/11/23 1610 MR#: [id number] Acct: [id number] Name: KAYLENE HAYNES Rep #:[id number] : 1935 88 From: Maame Pinon DO PCP: Dr. Howard Zimmerman MD Status:ADM I NO Location: MS3 ZQ176-3 Reason for Visit Reason for Visit: Debility/weakness [...] % (Auto) 51.1, Lymph % (Auto) 38.3, Cuming% (Auto) 9.0, Eos % (Auto) 1.0, Baso [...] no intubation Charges/Coding Visit Charges Inpatient E&M: 54700 Subs Hosp L2 09/11/23 1615 <Electronically signed by Maame Pinon DO> Cosigner Signature (if applicable): CC: ~ Signed [facility] Work Phone: 1(437) 274-332803-26-2024 Consult note Author Eri Interiano [facility] September 11, 2023 3:27pm Note Date/Time September 11, 2023 2:3 8pm [facility] Medical Records Department [address] [place] [address] Consultation - Neurology 09/11/23 1435 MR#: [id number] Acct: [id number] Name: KAYLENE HAYNES Rep #:[id number] : 1935 88 From: Eri Interiano MD PCP: Dr. Howard Zimmerman MD Status:ADM I NO Location: [facility] PL085-3 Assessment and Plan: Neuro Assessment/Plan KAYLENE HAYNES [...] No signficant side effects from the medication. [facility] Medical History (Updated 09/10/23 @ 16:[address] Maame Pinon, DO) Brain TIA CKD (chronic kidney disease), [...] normal except as noted Coordination / Balance: artbou-yo-mmgk test normal, vukn-cf-glzt test normal andRomberg test negative Speech: speech normal Sensory Exam: double simultaneous stimulation for sensation normal Motor Exam: strength 5/5 throughout and muscle tone normal throughout Coordination: rvhkfe-jh-dcmi test normal and bcum-om-aboq test normal Pupil Exam: Normal Pupillary Reactivity/Response: [...] % (Auto) 51.1, Lymph % (Auto) 38.3, Cuming% (Auto) 9.0, Eos % (Auto) 1.0, Baso [...] mls @ 15 mls/hr 09/08/23 14:55 IV .B10H11P PRN Additional IVPB Infusion Sodium Chloride 250 mls @ 15 mls/hr 09/08/23 14:55 IV .K79L73B PRN Saline Flush Nutritional Formula (Lactose Free) [...] Carlos Whipple MD; Vilma Shine MD; Dr. eL Batres MD; Dr. Karen Mckeon MD; Dr. [...] Marly Ochoa DO; Roopa Tolbert MD~ Signed [facility] Work Phone: 1(168) 575-456203-25-2024 Progress note Author Maame [facility] September 10, 2023 4:53pm Note Date/Time September 10, 2023 4:5 3pm [facility] Medical Records Department [address] [place] [address] Progress Note - Hospitalist 09/10/23 1645 MR#: [id number] Acct: [id number] Name: KAYLENE HAYNES LY Rep #:[id number] : 1935 88 From: Maame Pinon DO PCP: Dr. Howard Zimmerman MD Status:ADM I NO Location: [facility] LG530-6 Reason for Visit Reason for Visit: Debility/weakness Subjective Subjective Patient is a 88-year-old white female [facility]. She was [...] 37.1 L, Lymph % (Auto) 48.5 H, Cuming % (Auto) 9.1, Eos % (Auto) 2.8, [...] no intubation Charges/Coding Visit Charges Inpatient E&M: 34649 Subs Hosp L2 09/10/23 1653 <Electronically signed by Maame Pinon DO> Cosigner Signature (if applicable): CC: ~ Signed [facility] Work Phone: 1(216) 961-546603-25-2024 Progress note Author Daisy Mack [facility] September 09, 2023 11:52pm Note Date/Time September 09, 2023 11: 52pm [facility] Medical Records Department [address] [place] [address] Progress Note - Hospitalist 09/09/23 2352 MR#: [id number] Acct: [id number] Name: KAYLENE HAYNES LY Rep #:[id number] : 1935 88 From: Daisy Mack MD PCP: Dr. Howard Zimmerman MD Status:ADM I NO Location: [place] [address] Hospitalist Note Patient with mild agitation, attempting to get out of bed, underlying Parkinson's disease with dementia, will dose with low dose seroquel x 1 and if assists may consider q HS if needed/appropriate. 09/09/232351 <Electronically signed by Daisy Mack MD> Cosigner Signature (if applicable): CC: ~ Signed [facility] Work Phone: 1(294) 191-585803-24-2024 Progress note Author Gonzalez Garza [facility] September 09, 2023 4:20pm Note Date/Time September 09, 2023 4:1 4pm [facility] Medical Records Department [address] [place] [address] Progress Note - Hospitalist 09/09/23 1611 MR#: [id number] Acct: [id number] Name: KAYLENE HAYNES LY Rep #:[id number] : 1935 88 From: Gonzalez Garza DO PCP: Dr. Howard Zimmerman MD Status:ADM I NO Location: [place] [address] Reason for Visit Reason for Visit: Diagnoses [...] Clarity Clear, Urine pH 6.5, Ur Specific [place] 1.020, Urine Protein 15 H, Urine Glucose [...] % (Auto) 53.3, Lymph % (Auto) 36.3, Cuming % (Auto) 6.9, Eos % (Auto) 1.1, [...] of hearing, patient answers simple questions appropriately, katarinae does not remember my entire conversation yesterday [...] she will need temporary placement in a halfway facility #2 Parkinson's disease-complicates care, medical course, [...] 25 minutes Charges/Coding Visit Charges Inpatient E&M: 64870 Subs Hosp L1 09/09/23 1620 <Electronically signed by Gonzalez Garza DO> Cosigner Signature (if applicable): CC: ~ Signed [facility] Work Phone: 1(697) 777-932503-23-2024 History and physical note Author Gonzalez [facility] September 08, 2023 4:00pm Note Date/Time September 08, 2023 3:4 8pm [facility] Medical Records Department [address] [place] [address] H&P Exam - Hospitalist 09/08/23 1546 MR#: [id number] Acct: [id number] Name: KAYLENE HAYNES Rep #:[id number] : 1935 88 From: Gonzalez Garza DO PCP: Dr. Howard Zimmerman MD Status:ADM I NO Location: [facility] EO094-5 HPI - General General Date of Admission: 09/08/23 Date of Service: 09/08/23 Chief Complaint: Debility, weakness HPI Narrative KAYLENE HAYNES, is a 88 F who presents to the emergency room at [facility] after being brought in by squad, [...] will be placed in observation status on [facility] 3, she will be seen by PT and OT, she will need temporary placement in a halfway facility, I talked to the family today they prefer TCU if possible. I talked with social media community manager about it also. [facility] Medical History CKD (chronic kidney disease), stage [...] % (Auto) 51.3, Lymph % (Auto) 35.9, Cuming% (Auto) 7.5, Eos % (Auto) 2.5, Baso [...] she will need temporary placement in a halfway facility for short-term rehabservices. Nursing states that [...] 55 minutes Charges/Coding Visit Charges Inpatient E&M: 60796 Init Hosp L2 09/08/23 1600 <Electronically signed by Gonzalez Garza DO> Cosigner Signature (if applicable): CC: Dr. Gonzalez Garza DO; Dr. Howard Zimmerman MD~ Signed [facility] Work Phone: 1(836) 626-964103-23-2024 Discharge summary Author Germánedgardo Benson [facility] September 08, 2023 1:40pm Note Date/Time September 08, 2023 10: 23am [facility] Medical Records Department [address] [place] [address] Emergency Department Summary 09/08/23 MR#: [id number] Acct: [id number] Name: KAYLENE HAYNES Rep #:[id number] : 1935 88 From: Germán Benson DO PCP: Dr. Howard Zimmerman MD Status:ADM I NO Location: [facility] GO352-4 [facility] History of Present Illness Chief Complaint: Syncope [...] are unsure if she hit her head. PFSH [facility] Medical History CKD (chronic kidney disease), stage [...] % (Auto) 51.3 Lymph % (Auto) 35.9 Cuming % (Auto) 7.5 Eos % (Auto) 2.5 [...] your Primary Care Provider. Call [facility] ([phone]) or report to the closest Emergency Room. Call 911 if necessary. 09/08/23 1340 <Electronically signed by Germán Benson DO> Cosigner Signature (if applicable): CC: Dr. Howard Zimmerman MD ~ Signed [facility] Work Phone: 1(833) 492-325403-23-2024 Discharge summary Author Germán Benson [facility] September 08, 2023 1:40pm Note Date/Time September 08, 2023 10: 23am [facility] Medical Records Department [address] [place] [address] Emergency Department Summary 09/08/23 MR#: [id number] Acct: [id number] Name: KAYLENE HAYNES Rep #:[id number] : 1935 88 From: Germán Benson DO PCP: Dr. Howard Zimmerman MD Status:ADM I NO Location[place] [facility] [place] [facility] History of Present Illness Chief Complaint: Syncope [...] are unsure if she hit her head. [facility] Medical History CKD (chronic kidney disease), [...] % (Auto) 51.3 Lymph % (Auto) 35.9 Cuming % (Auto) 7.5 Eos % (Auto) 2.5 [...] problems, contact your Primary Care Provider. Call [employer] [facility] ([phone]) or report to the closest Emergency Room. Call 911 if necessary. 09/08/23 1340 <Electronically signed by Germán Benson DO> Cosigner Signature (if applicable): CC: Dr. Howard Zimmerman MD ~ Signed [facility] Work Phone: 1(508) 854-295203-01-2024 History of Present illness Narrative* Bart Brooks DO - 08/17/2023 10:52 AM EST Diagnosis: 1) Lymphoproliferative disorder. HPI: The patient is a 88 yo female whom I saw in consultation at [facility] in 2006for pancytopenia following an admission for [...] definite evidence of malignancy. PET done at [facility] 07/31/11: The PET scan revealed increased [...] k/uL 6.51 (H) 6.98 (H) 6.43 (H) Cuming% % 6.0 7.0 6.0 Abs Cuming <0.87 k/uL 0.87 (H) 0.96 (H) 0.90 [...] (A) Few (A) Tear Drop Few Love [place] Occasional Occasional Occasional DTYPE Manual Manual [...] which included preparing to see the patient, fupp-zx-lthz patient care, completing clinical documentation, obtaining and/or reviewing separately obtained history, performing a medically appropriate examination, counseling and educating the pat ient/family/caregiver, ordering medications, tests, or procedures, communicating with other HCPs (not separately reported), and communicating results to the patient/family/caregiver. Bart Brooks DO documented in this encounterAshtabula County Medical Center02-12-2024 Miscellaneous Notes* Telephone Encounter - [...] electronically to the patient's pharmacy. Erika Tobin, Educational Institution Curator III documented in this encounterAshtabula County Medical Center01-12-2024 Consult note Author Freddy Solano [facility] June 29, 2023 2:53pm Note Date/Time June 29, 2023 2 :53pm [facility] Medical Records Department [address] [place] [address] Counseling Note - Pharmacy 06/29/23 1453 MR#: [id number] Acct: [id number] Name: KAYLENE HAYNES LY Rep #:[id number] : 1935 88 From: Freddy Solano PCP: Dr. Howard Zimmerman MD Status:ADM I NO Y Location: [place] [address] Pharmacy [facility] has performed discharge medication reconciliation [...] signed by Freddy monique> Date _ Freddy Tafoya Signature (if applicable): Date CC: ~ Signed [facility] Work Phone: 1(521) 549-621401-12-2024 Discharge summary Author Avel Massey [facility] June 29, 2023 1:46pm Note Date/Time June 29, 2023 1 :45pm [facility] Medical Records Department [address] [place] [address] Instructions for Home/Discharge Instructions 06/29/23 0940 MR#: [id number] Acct: [id number] Name: KAYLENE HAYNES Rep #:[id number] : 1935 88 From: Avel Marquez PCP: [...] Recorder Preventi (Urgent) Timeframe: 1 Day Facility: [facility] - Location: Cardiovascular Services Ordered By: [...] Interiano DO; Roopa Tolbert MD ~ Signed [facility] Work Phone: 1(356) 777-279401-11-2024 Discharge summary Author Myrna Munguia [facility] June 28, 2023 2:51pm Note Date/Time June 28, 2023 1 :02pm [facility] Medical Records Department [address] [place] [address] Emergency Department Summary 06/28/23 MR#: [id number] Acct: [id number] Name: KAYLENE HAYNES LY Rep #:[id number] : 1935 88 From: Myrna Munguia MD [...] do seem to be improvingat this time. [facility] Medical History (Updated 06/28/23 @ 13:22 by [...] upon returning. 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 IV line initiated. Labwork obtained to evaluate [...] 33.4 L Lymph % (Auto) 53.0 H Cuming % (Auto) 8.4 Eos % (Auto) 2.3 [...] Provider] - Disposition Disposition: Acute Care Hospital [facility] What to do if you have Problems For any increased pain, shortness of breath, bleeding, nausea or vomiting, chestpain, or any unexpected problems, contact your Primary Care Provider. Call [facility] ([phone]) or report to the closest Emergency Room. Call 911 if necessary. 06/28/23 1458 <Electronically signed by Myrna Munguia MD> Cosigner Signature (if applicable): CC: Dr. Howard Zimmerman MD ~ Signed [facility] Work Phone: 1([phone]) 355-267401-11-2024 Discharge summary Author Myrna Munguia [facility] June 28, 2023 2:51pm Note Date/Time June 28, 2023 1 :02pm [facility] Medical Records Department [address] [place] [address] Emergency Department Summary 06/28/23 MR#: [id number] Acct: [id number] Name: KAYLENE HAYNES Rep #:[id number] : 1935 88 From: Myrna Munguia MD [...] do seem to be improvingat this time. [facility] Medical History (Updated 06/28/23 @ 13:22 by [...] upon returning. 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 IV line initiated. Labwork obtained to evaluate [...] 33.4 L Lymph % (Auto) 53.0 H Cuming % (Auto) 8.4 Eos % (Auto) 2.3 [...] Provider] - Disposition Disposition: Acute Care Hospital [facility] What to do if you have Problems For any increased pain, shortness of breath, bleeding, nausea or vomiting, chestpain, or any unexpected problems, contact your Primary Care Provider. Call [facility] ([phone]) or report to the closest Emergency Room. Call 911 if necessary. 06/28/23 1455 <Electronically signed by Myrna Munguia MD> Cosigner Signature (if applicable): CC: Dr. Howard Zimmerman MD ~ Signed [facility] Work Phone: 1(903) 216-943101-11-2024 History and physical note Author Daisy Mack [facility] June 28, 2023 2:12pm Note Date/Time June 28, 2023 1 :31pm [facility] Medical Records Department [address] [place] [address] H&P Exam - Hospitalist 06/28/23 1330 MR#: [id number] Acct: [id number] Name: KAYLENE HAYNES Rep #:[id number] : 1935 88 From: Daisy Mack MD [...] who lives alone who presents to the [facility] ED on 06/28/23 with history of low [...] administered aspirin 325 mg p.o. x 1. [facility] Medical History CKD (chronic kidney disease), stage [...] 4 extremities, no focal deficits, finger-nose and pnaa-ut-jpwr appropriate, equivocal Babinski, sensation appropriate, no further [...] 33.4 L, Lymph % (Auto) 53.0 H, Cuming % (Auto) 8.4, Eos % (Auto) 2.3, [...] who lives alone who presents to the [facility] ED on 06/28/23 with history of low [...] patient does admit she sees Dr. Brooks [facility] oncology routinely suspect this is an ongoing [...] 16 minutes. Charges/Coding Visit Charges Inpatient E&M: 78948 Init Hosp L2 Procedures Hospitalists Procedures: 34301 Advncd Care Plan 30 Min 06/28/23 1412 <Electronically signed by Daisy Mack MD> Cosigner Signature (if applicable): CC: Dr. Daisy Mack MD; Dr. Howard Zimmerman MD~ Signed [facility] Work Phone: [phone]) 737-651401-11-2024 History and physical note Author [facility] June 28, 2023 2:12pm Note Date/Time June 28, 2023 1 :31pm [facility] Medical Records Department [address] [place] [address] H&P Exam - Hospitalist 06/28/23 1330 MR#: [id number] Acct: [id number] Name: KAYLENE HAYNES LY Rep #:[id number] : 1935 88 From: Daisy Mack MD [...] who lives alone who presents to the [facility] ED on 06/28/23 with history of low [...] 4 extremities, no focal deficits, finger-nose and ncwz-vv-pjxc appropriate, equivocal Babinski, sensation appropriate, no further [...] 33.4 L, Lymph % (Auto) 53.0 H, Cuming % (Auto) 8.4, Eos % (Auto) 2.3, [...] who lives alone who presents to the [facility] ED on 06/28/23 with history of low [...] patient does admit she sees Dr. Brooks [facility] oncology routinely suspect this is an ongoing [...] 16 minutes. Charges/Coding Visit Charges Inpatient E&M: 45207 Init Hosp L2 Procedures Hospitalists Procedures: 76331 Advncd Care Plan 30 Min 06/28/23 1412 <Electronically signed by Daisy Mack MD> Cosigner Signature (if applicable): CC: Dr. Daisy Mack MD; Dr. Howard Zimmerman MD~ Signed [facility] Work Phone: 1(888) 978-453612-05-2023 Miscellaneous Notes* Telephone Encounter - Ayanna Garza [...] changing position slowly. * [facility] 3[facility]20 PM EST Pt called for Dr. Felder to make sure she's doing everything she should be doing for her PD. Pt stated the PD is "working on her" - [phone]. 04/04/23 FUV w/Dr. Felder 10/08/23 FUV w/Gerry Felder documented in this encounterAshtabula County Medical Center10-18-2023 History of Present illness Narrative* Selvin Felder MD - 04/04/2023 4:48 PM EDT [facility] - FOLLOW UP EVALUATION Howard Zimmerman MD [address] [address] I had the pleasure of seeing Ms. [...] when walking sometimes. Plans on going to [employer] for PT. 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 Rapid alternating movement normal. Faxy-qh-gili normal.Left: Shwjkh-tf-sraq normal. Rapid alternating movement normal. Czdx-ns-aneo normal. Gait Generally stable gait except for [...] appointment, pleasefeel free to send me a [employer] message or contact the office - PT [...] Sincerely, Selvin Felder MD documented in this encounterAshtabula County Medical Center10-18-2023 Instructions* Patient Instructions* Selvin Felder [...] appointment, pleasefeel free to send me a [employer] message or contact the office Movement Disorders Medication Schedule: Medications 8a 1p 6p Sinemet 25/100 2 2 2 Return in about 6 months (around 10/04/2023). If there are any concerns before your next visit, please call or you can send a message through [employer]. You can also now schedule and select appointments through [employer]. Selvin Felder MD Fatigue and Parkinson s [...] researchers studying fatigue. Flaco Valenzuela, Ph.D. at [facility] is studying Multi-modal Neuroimaging of Fatigue in [...] people with PD. Bishnu Christensen M.D. at [facility] is studying Remotely Supervised Transcranial Direct Current [...] For more information and resources see [email or web address] [facility] is a [facility] of Excellence [...] maneuvers increase blood pressure. documented in this encounterAshtabula County Medical Center08-31-2023 NoteHNO ID: [id number] Author: Tejal Willard, PT Service: ? Author Type: Physical Therapist Type: Progress Notes Filed: 02/15/2023 9:59 AM Note Text: 02/15/2023 [facility]OR[facility] THERAPY PHYSICAL [...] or scheduled additional follow-up appointments. Tejal Willard, [facility]08-29-2023 History of Present illness Narrative* Bart Brooks, - 02/13/2023 12:08 PM EDT Diagnosis: 1) Lymphoproliferative disorder. HPI: The patient is a 87 yo female whom I saw in consultation at [facility] in 2006for pancytopenia following an admission for [...] definite evidence of malignancy. PET done at [facility] 07/31/11: The PET scan revealed increased [...] No jaundice or rash. No petechiae. NEUROLOGIC: direct response consultant II-XII are grossly intact. No focal motor [...] k/uL 8.64 (H) 6.98 (H) 6.43 (H) Cuming% % 6 7.0 7.0 6.0 Abs Cuming <0.87 k/uL 0.75 1.08 (H) 0.96 (H) [...] Few (A) Tear Drop Few Few Love [place] Occasional Occasional DTYPE Manual Manual Realym% [...] which included preparing to see the patient, tslz-pw-rhzp patient care, completing clinical documentation, obtaining and/or reviewing separately obtained history, performing a medically appropriate examination, counseling and educating the pat ient/family/caregiver, communicating with other HCPs (not separately reported), and communicating results to the patient/family/caregiver. Bart Brooks DO documented in this encounterAshtabula County Medical Center08-01-2023 Discharge summary Author Gonzalez Garza [facility] January 16, 2023 11:47am Note Date/Time January 16, 2023 11: 45am [facility] Medical Records Department [address] [place] [address] Instructions for Home/Discharge Instructions 01/16/23 1144 MR#: [id number] Acct: [id number] Name: KAYLENE HAYNES Rep #:[id number] : 1935 87 From: Gonzalez Garza DO [...] CC: Dr. Howard Zimmerman MD ~ Signed [facility] Work Phone: 1(783) 814-910007-31-2023 History and physical note Author Gonzalez Garza [facility] January 15, 2023 8:10pm Note Date/Time January 15, 2023 7:58 pm [facility] Medical Records Department [address] [place] [address] H&P Exam - Hospitalist 01/15/231954 MR#: [id number] Acct: [id number] Name: KAYLENE HAYNES Rep #:[id number] : 1935 87 From: Gonzalez Garza DO PCP: Dr. Howard Zimmerman MD Status:ADM I NO Location: [place] [address] HPI - General General Date of Admission: 01/15/23 Date of Service: 01/15/23 Chief Complaint: Presyncope, dysarthria HPI Narrative KAYLENE HAYNES, is a 87 F who presents to the emergency room at [facility] after sustaining a presyncopal episode in the parking lot at [facility]. She was getting out of her car. [...] not had an echocardiogram here since 2020. [facility] Medical History Acute bronchitis, unspecified Acute sinusitis, [...] Document 01/15/23 16:52 RMA (Rec: 01/15/23 16:52 [facility] [id number]) Nutrition Malnutrition Evidence of Malnutrition Exists Yes [...] diet with consistency alteration as indicated per NEWSPAPER PHOTOGRAPHER. Will continue 120mL ensure plus high protein [...] Std Deviation 46.2 H, RDW Coeff of Sav[place]h 13.4, Plt Count 313,MPV 9.0, Immature Gran % (Auto) 0.400, Neut % (Auto) 45.8 L, Lymph % (Auto) 40.9, Cuming % (Auto) 9.2, Eos % (Auto) 1.3, [...] occlusion of the major arteries of the [place] or demonstrated aneurysm or hemodynamically [...] occlusion of the major arteries of the [place] or demonstrated aneurysm or hemodynamically significant stenosis. 2. Mild atherosclerotic plaque right carotid bulb and internal carotid artery. N.B. : The above Results were Read Back by Wilmer Infante MD to Remus Ungur, DO, and understanding confirmed on 01/15/2023 11:54:24 [...] 55 minutes Charges/Coding Visit Charges Inpatient E&M: 39491 Init Hosp L2 01/15/232009 <Electronically signed by Gonzalez Garza DO> Cosigner Signature (if applicable): CC: Dr. Gonzalez Garza DO; Dr. Howard Zimmerman MD~ Signed [facility] Work Phone: 1(439) 335-405607-31-2023 Discharge summary Author Stephanie [facility] January 15, 2023 4:35pm Note Date/Time January 15, 2023 11:0 2am [facility] Medical Records Department [address] [place] [address] Emergency Department Summary 01/15/23 MR#: [id number] Acct: [id number] Name: KAYLENE HAYNES LY Rep #:[id number] : 1935 87 From: Stephanie Gonzalez DO PCP: Dr. Howard Zimmerman MD Status:ADM I NO Location: [place] [address] HPI History of Present Illness Chief Complaint: [...] She denies chest pain or abdominal pain. [facility] Medical History Acute bronchitis, unspecified Acute [...] (Auto) 45.8 L Lymph % (Auto) 40.9 Cuming % (Auto) 9.2 Eos % (Auto) 1.3 [...] occlusion of the major arteries of the [place] or demonstrated aneurysm or hemodynamically [...] occlusion of the major arteries of the [place] or demonstrated aneurysm or hemodynamically [...] Parkinson's disease Disposition Disposition: Acute Care Hospital [facility] What to do if you have Problems For any increased pain, shortness of breath, bleeding, nausea or vomiting, chestpain, or any unexpected problems, contact your Primary Care Provider. Call [facility] ([phone]) or report to the closest Emergency Room. Call 911 if necessary. 01/15/23 1635 <Electronically signed by Remus Ungur DO> Cosigner Signature (if applicable): CC: Dr. Howard Zimmerman MD ~ Signed [facility] Work Phone: [phone]) 310-991206-05-2023 Miscellaneous Notes* Telephone Encounter - [facility] [place] [place] Darryl Mcdonough - 11/20/2022 3:29 PM EDT Patient called asking for EEG order to be faxed to [facility] diagnostic scheduling. Fax number [phone]. Order, demographics, and coverage faxed as requested. documented in this encounterAshtabula County Medical Center04-10-2023 Discharge summary Author Marbella Doss [facility] September 25, 2022 2:57pm Note Date/Time September 19, 2022 1:42 pm [facility] Physical Therapy [facility] [address] [place] [address]. [address] [place] [address] / REHABILITATION SERVICES DISCHARGE SUMMARY MR#: [id number] Acct: [id number] Name: KAYLENE HAYNES Rep #: [id number] : 1935 87 From: Marbella Ramos Referring DrLiu: OUT OF TOWN DOCTOR Status: REG RCR [facility] It has been [...] please feel free to call me at [phone]. Thank you for the referral of thispatient. Sincerely, Marbella Doss, ROCHELLE Balance/Gait/Functional tests - Balance/Special Test Scores Functional Gait Assessment Score: 17 % Disability: 43.3400 Lower Extremity Functional Score: 57 <Electronically signed by Marbella Doss MPT> 09/25/22 1457 CC: Dr. Howard Zimmerman MD; SRIDEVI SOLO ~ Signed [facility] Work Phone: 1(219) 240-753702-28-2023 History of Present illness Narrative* Bart Brooks, DO - 08/15/2022 11:13 AM EST Diagnosis: 1) Lymphoproliferative disorder. HPI: The patient is a 86 yo female whom I saw in consultation at [facility] in 2006for pancytopenia following an admission for [...] definite evidence of malignancy. PET done at [facility] 07/31/11: The PET scan revealed increased [...] No jaundice or rash. No petechiae. NEUROLOGIC: direct response consultant II-XII are grossly intact. No focal motor [...] (H) 6.05 (H) 6.84 (H) 6.51 (H) Cuming% % 6.0 11.0 9.0 6.0 Abs Cuming <0.87 k/uL 0.97 (H) 1.51 (H) 1.38 [...] Target Cells Few Few Few Few Love [place] Occasional Occasional DTYPE Manual ANC(includeSEG+BAND) k/uL [...] care. Bart Brooks DO documented in this encounterAshtabula County Medical Center02-01-2023 Progress note Author Rhoda Mercado [facility] July 19, 2022 12:14pm Note Date/Time July 19, 2022 1 2:14pm [facility] [address] [place], [place] [address] [address] Progress Note - Wound Care 07/19/22 1211 MR#: [id number] Acct: [id number] Name: KAYLENE HAYNES Rep #:[id number] : 1935 87 From: Rhoda Mercado NP DEGREASER OPERATOR-C PCP: Dr. Howard Zimmerman MD Status:REG R [...] Start: 07/19/22 09:47 Freq: Status: Active Protocol: DAGO Activity Type Activity Date Activity User E-sign Co-sign Detail Recorded Client Recorded Date Recorded By Document 07/19/22 09:48 [facility] [id number] 07/19/22 09:55 [facility] 07/19/22 09:48 - Today's Visit Information Type of service Follow-up Visit (Physician/SPORTS COMMENTATOR ) Arrival Mode Ambulatory Transfer Assistance None [...] Recorded Date Recorded By Document 07/19/22 09:48 [facility] [id number] 07/19/22 09:55 [facility] 07/19/22 09:48 Wound Center Nurse 1 #1- [...] Date Recorded By Document 07/19/22 10:03 MW [id number] 07/19/22 10:05 MW 07/19/22 10:03 Wound Center [...] Date Recorded By Document 07/19/22 10:05 MW [id number] 07/19/22 10:06 MW 07/19/22 10:05 Wound Care [...] unspecified 07/19/22 1214 <Electronically signed by Rhoda JOHNSON> Cosigner Signature (if applicable): CC: ~ Signed [facility] Work Phone: 1(956) 185-157301-31-2023 NoteHNO ID: [id number] Author: Tejal Willard PT Service: ? Author [...] of Care: created on 07/18/22 through 09/16/22 [place] in home exercise program. 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 * Telephone Encounter - Erika Tobin [facility] [place] [place] - 07/06/2022 3:47 PM EST NI PHONE [...] how best to manage this. CALLBACK #: [phone] [place] TO LEAVE MESSAGE: yes LAST FUV: yesterday with II documented in this encounterAshtabula County Medical Center01-19-2023 Miscellaneous Notes* Telephone Encounter - Estrella Her RN - 07/06/2022 10:50 AM EST Clarification of C/L 25-100 mg dose was given to pharmacist per Dr. Solo's OV notes. 2 tablets by mouth TID at 8a, 1p & 6p. * Telephone Encounter - [facility] [place] [place] Darryl Mcdonough - 07/06/2022 9:30 AM EST [facility] pharmacy called asking for clarification of directions for Sinemet sent yesterday. Sig: "12 tablet 3 times a day" [phone] documented in this encounterAshtabula County Medical Center01-18-2023 Instructions* Patient Instructions* Sridevi Solo MD - 07/05/2022 4:30 PM EST Please, increase carbidopa/levodopa 25/100 to 2 tablets at 8 AM, 1 PM and 6 PM Please, physical therapy reassessment Please, follow-up in 6 months documented in this encounterAsht[facility]ula [facility]01-18-2023 History of Present illness Narrative* Sridevi Solo MD - 07/05/2022 4:22 PM EST [facility] - FOLLOW UP EVALUATION Howard Zimmerman MD [address] [address] I had the pleasure of seeing Ms. [...] or around: 01/02/23 Level of service : 21227 (40-54 min). Time spent 45 min on the day of service, which included preparing to see the patient, [id number] patient care, completing clinical documentation, obtaining and/or [...] 2022 at 4:24 PM documented in this encounterAshtabula [facility] Center01-18-2023 Progress note Author Rhoda Mercado [facility] July 05, 2022 10:20am Note Date/Time July 05, 2022 1 0:20am [facility] [address] [place] [address] Progress Note - Wound Care 07/05/22 1016 MR#: [id number] Acct: [id number] Name: KAYLENE HAYNES Rep #:[id number] : 1935 87 From: Rhoda Mercado NP DEGREASER OPERATOR-C PCP: Dr. Howard Zimmerman MD Status:REG R [...] Date Recorded By Document 06/23/22 09:32 YOLANDA [id number] 06/23/22 09:34 Document 06/28/22 10:02 NC [id number] 06/28/22 10:08 NC Document 07/05/22 09:40 NC [id number] 07/05/22 09:43 AK 06/23/22 06/28/22 07/05/22 09:32 10:02 09:40 - Today's Visit Information Type of service Follow-up Visit Follow-up Visit Follow-up Visit (Physician/SPORTS COMMENTATOR (Physician/SPORTS COMMENTATOR (Physician/SPORTS COMMENTATOR ) ) ) Arrival Mode Ambulatory Ambulatory [...] Recorded Date Recorded By Document 06/23/22 09:32 [id number] 06/23/22 09:34 Document 06/28/22 10:02 NC [id number] 06/28/22 10:08 AK Document 07/05/22 09:40 NC [id number] 07/05/22 09:43 AK 06/23/22 06/28/22 07/05/22 09:32 [...] Medium (34-66%) Medium (34-66%) -Granulation Quality [place] -Slough/Fibrin Yes Yes Yes -Necrosis Amt Small [...] Date Recorded By Document 06/23/22 12:25 PL [id number] 06/23/22 12:26 PL Document 06/28/22 10:18 MW [id number] 06/28/22 10:20 MW Document 07/05/22 09:54 MW [id number] 07/05/22 09:56 MW 06/23/22 06/28/22 07/05/22 12:25 [...] Recorded Date Recorded By Document 06/23/22 09:49 [id number] 06/23/22 09:51 JF Document 06/28/22 10:29 MW [id number] 06/28/22 10:31 MW Document 07/05/22 09:57 AK [id number] 07/05/22 09:58 AK 06/23/22 06/28/22 07/05/22 09:49 [...] 1020 <Electronically signed by Rhoda Mercado NP DEGREASER OPERATOR-C> Cosigner Signature (if applicable): CC: ~ Signed [facility] Work Phone: 1(581) 494-204401-13-2023 History of Present illness Narrative* Ramila Barton, RT(R) - 06/30/2022 1:30 PM EST Radiology [...] 30, 2022 1:25 PM documented in this encounterAshtabula [facility] Center01-11-2023 Progress note Author Rhoda Mercado [facility] June 28, 2022 11:06am Note Date/Time June 28, 2022 1 1:06am [facility] [address] [place] [address] Progress Note - Wound Care 06/28/22 1102 MR#: [id number] Acct: [id number] Name: KAYLENE HAYNES LY Rep #:[id number] : 1935 87 From: Rhoda Mercado NP DEGREASER OPERATOR-C PCP: Dr. Howard Zimmerman MD Status:REG R [...] Date Recorded By Document 06/23/22 09:32 YOLANDA [id number] 06/23/22 09:34 YOLANDA Document 06/28/22 10:02 JUAN [id number] 06/28/22 10:08 AK 06/23/22 06/28/22 09:32 10:02 - Today's Visit Information Type of service Follow-up Visit Follow-up Visit (Physician/SPORTS COMMENTATOR (Physician/SPORTS COMMENTATOR ) ) Arrival Mode Ambulatory Ambulatory Patient [...] Patient Pain Free? Yes Yes - Nurse 1 - General Ulcer Measurement Start: 06/23/22 09:32 Freq: Status: Active Protocol: Activity Type Activity Date Activity User E-sign Co-sign Detail Recorded Client Recorded Date Recorded By Document 06/23/22 09:32 [id number] 06/23/22 09:34 Document 06/28/22 10:02 JUAN [id number] 06/28/22 10:08 JUAN 06/23/22 06/28/22 09:32 10:02 Wound Center Nurse [...] Medium (34-66%) Medium (34-66%) -Granulation Quality [place] -Slough/Fibrin Yes Yes -Necrosis Amt Small (1-33%) [...] Date Recorded By Document 06/23/22 12:25 PL [id number] 06/23/22 12:26 PL Document 06/28/22 10:18 MW [id number] 06/28/22 10:20 MW 06/23/22 06/28/22 12:25 10:18 [...] Recorded Date Recorded By Document 06/23/22 09:49 [id number] 06/23/22 09:51 Document 06/28/22 10:29 MW [id number] 06/28/22 10:31 MW 06/23/22 06/28/22 09:49 10:29 [...] 06/28/22 1106 <Electronically signed by Rhoda Mercado NP, NP-C> Cosigner Signature (if applicable): CC: ~ Signed [facility] Work Phone: 1(620) 794-106501-06-2023 Progress note Author Paige May [facility] June 23, 2022 1:02pm Note Date/Time June 23, 2022 1: 02pm [facility] [address] [place] [address] Progress Note - Wound Care 06/23/22 1252 MR#: [id number] Acct: [id number] Name: KAYLENE HAYNES Rep #:[id number] : 1935 87 From: Paige BRUNSON PCP: [...] 19.8 Charges/Coding Wound Center CF Procedures 96XXX-98XXX: 20614 RMVL DEVITAL TIS 20 CM/< Multi Select Codes Wound Center CF Procedures 96XXX-98XXX: 61029 RMVL DEVITAL TIS 20 CM/< Physical Exam [...] Post-Debridement Measurements and Additional Note: Post-Debridement Measurements/Treatment HODAN - Nurse 1 - General Ulcer Assessment Start: 06/23/22 09:32 Freq: Status: Active Protocol: DAGO Activity Type Activity Date Activity User E-sign Co-sign Detail Recorded Client Recorded Date Recorded By Document 06/23/22 09:32 JF [id number] 06/23/22 09:34 06/23/22 09:32 - Today's Visit Information Type of service Follow-up Visit (Physician/SPORTS COMMENTATOR ) Arrival Mode Ambulatory Patient Identification Verified [...] Date Recorded By Document 06/23/22 09:32 JF [id number] 06/23/22 09:34 06/23/22 09:32 Wound Center Nurse [...] Date Recorded By Document 06/23/22 12:25 PL [id number] 06/23/22 12:26 PL 06/23/22 12:25 Wound Center [...] Recorded Date Recorded By Document 06/23/22 09:49 [id number] 06/23/22 09:51 06/23/22 09:49 Wound Care Nurse [...] at rest. She will return to the [facility] in 1 week. She will return sooner or present to the ED should any signs or symptoms of infection arise. 06/23/22 1302 <Electronically signed by Paige BRUNSON> Cosigner Signature (if applicable): CC: ~ Signed [facility] Work Phone: 1(167) 979-896411-25-2022 Hospital Discharge instructions Additional Instructions Please have your sutures removed from your right lower leg in 12 to 14 days. [facility] Work Phone: 1(688) 496-569410-18-2022 Miscellaneous Notes* Telephone Encounter - Myrna Lees RN - 04/04/2022 9:59 AM EDT Order pending. Myrna Lees RN * Telephone Encounter - Ligia Monson - 04/04/2022 9:49 AM EDT Patient is scheduled for mammogram screening on 06/30/2022. Requesting updated order, current orderexpires 05/02/2022. Thank you. documented in this encounterAshtabula [facility] Center09-21-2022 Miscellaneous Notes* Telephone Encounter - [...] decide. Bart Brooks DO documented in this encounterAshtabula County Medical Center08-30-2022 Miscellaneous Notes* Telephone Encounter - [...] this. Bart Brooks DO documented in this encounterAshtabula County Medical Center08-30-2022 History of Present illness Narrative* Bart Brooks DO - 02/14/2022 11:52 AM EDT Diagnosis: 1) Lymphoproliferative disorder. HPI: The patient is a 86 yo female whom I saw in consultation at [facility] in 2006for pancytopenia following an admission for [...] definite evidence of malignancy. PET done at [facility] 07/31/11: The PET scan revealed increased [...] history: She continues to participate in [employer] 3 times a week and Delay the [...] No jaundice or rash. No petechiae. NEUROLOGIC: direct response consultant II-XII are grossly intact. No focal motor [...] (H) 8.64 (H) 6.05 (H) 6.84 (H) Cuming% % 6 6.0 7.0 11.0 9.0 Abs Cuming <0.87 k/uL 0.75 0.97 (H) 1.08 (H) 1.51 (H) 1.38 (H) Eosin% % 6 4.0 2.0 3.0 3.0 Abs Eosin <0.46 k/uL 0.75 (H) 0.64 (H) 0.31 0.41 0.44 Baso% % 1 2.0 2.0 0.0 1.0 Abs Baso <0.11 k/uL 0.12 (H) 0.32 (H) 0.31 (H) 0.00 0.43 (H) ANC(includeSEG+BAND) k/uL 5.96 5.09 5.78 Acanthocyte Few Few Few Few [place] Bodies Occasional Ovalocytes Few Few Few Few [...] 13.90 (H) 11.69 (H) 14.70 (H) RBC, [place] 3.90 - 5.20 m/uL 4.07 4.20 4.11 Hemoglobin, [place] 11.5 - 15.5 g/dL 12.3 12.7 12.5 Hematocrit, [place] 36.0 - 46.0 % 38.2 38.0 37.6 MCV, [place] 80.0 - 100.0 fL 93.9 90.5 91.5 MCH, [place] 26.0 - 34.0 pg 30.2 30.2 30.4 MCHC, [place] 30.5 - 36.0 g/dL 32.2 33.4 33.2 RDW, [place] 11.5 - 15.0 % 13.5 14.2 14.7 Platelet Cnt, [place] 150 - 400 k/uL 297 293 317 MPV, [place] 9.0 - 12.7 fL 10.7 10.5 9.6 Neut%, [place] % 50 41.4 48 Lymp%, [place] % 40 41.7 37 Cuming%, [place] % 5 14.0 12 Eos%, [place] % 2 1.8 1 Baso%, [place] % 3 1.1 2 Abs Neut, [place] 1.45 - 7.50 k/uL 6.95 4.83 7.06 Abs Lymp, [place] 1.00 - 4.00 k/uL 5.56 (H) 4.88 (H) 5.44 (H) Abs Cuming, [place] <0.87 k/uL 0.70 1.64 (H) 1.76 (H) Abs Eos, [place] <0.46 k/uL 0.28 0.21 0.15 Abs Baso, [...] care. Bart Brooks DO documented in this encounterAshtabula County Medical Center06-20-2022 Miscellaneous Notes* Telephone Encounter - [...] Pt stated she had labs done at [facility] 11/21/[address] Zimmerman. He noted that she had elevated white blook count and may want to be seen sooner by Dr Brooks. Please advise pt. [facility] documented in this encounterAs[facility]04-04-2022 Instructions* Patient Instructions* Sridevi Solo MD - 09/19/2021 3:15 PM EDT Please, increase carbidopa/levodopa 25/100 to 1.5 tablets 3 times a day at 8 AM, 1 PM and 6 PM Please, continue taking mirtazapine 7.5 mg at bedtime Please, think about re-visiting PD-specific physical therapy locally Please, follow-up in six months documented in this encounterAshtabula County Medical Center04-04-2022 History of Present illness Narrative* Sridevi Solo MD - 09/19/2021 2:54 PM EDT [facility] - FOLLOW UP EVALUATION Howard Zimmerman MD [address] [address] I had the pleasure of seeing Ms. [...] PROMIS-10 Office Visit from 09/19/2021 [facility] [...] Parkinson's Medication Schedule: Level of service : 20630 (40-54 min). Time spent 45 min on the day of service, which included preparing to see the patient, [id number] patient care, completing clinical documentation, obtaining and/or [...] Sincerely, Sridevi Solo MD documented in this encounterAshtabula County Medical Center12-10-2019 History of Present illness Narrative* Bonnie Quinteros RN - 05/27/2019 9:07 AM EST Pt sitting up and tolerating po well * Bonnie Quinteros RN - 05/27/2019 8:34 AM EST PATIENT RECEIVED FROM OR VIA CART. SPONT RESP. WITH INSTRUCTOR EXTENSION WORK IN ATTENDANCE. PLACED ON MONITOR. MONITOR ALARMS ON IN PACU. RT arm elevated and ice pack applied * Jenny De Santiago RN - 05/27/2019 7:12 AM EST Timeout performed prior to regional block procedure. Dr Kenyon in attendance. documented in this encounterSUMMA Work Phone: Consult note Author Franca Bernard [facility] January 16, 2023 1:43pm Note Date/Time January 16, 2023 1:4 3pm [facility] Medical Records Department [address] [place] [address] [place] [address] Counseling Note - Pharmacy 01/16/23 1343 MR#: [id number] Acct: [id number] Name: KAYLENE HAYNES Rep #:[id number] : 1935 87 From: Franca Bernard PCP: Dr. 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 documented in this encounter [facility]* Diagnosis Onset Date Resolution Status Essential hypertension chron ic History of atrial myxoma chr onic Hyperlipidemia chronic Nonrheumatic mitral (valve) prolapse chronic Nonrheumatic mitral valve regurgitation chronic Nonrheumatic tricuspid valve regurgitation chronic Premature atrial contractions chronic Premature ventricular contraction chronic [facility] Work Phone: Evaluation note* 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 documented in this encounter [facility] note* 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 Hernia of abdominal wall Ventral hernia, unspecified, without mention of obstruction or gangrene documented in this encounter [facility] note* Diagnosis Onset Date Resolution Status Acute bronchitis, unspecified acute Acute sinusitis, unspecified acute Contact with and (suspected) exposure to other viral communicable diseases acute [facility] Work Phone: Evaluation note* Diagnosis Encounter for screening mammogram for malignant neoplasm of breast- Primary Other screening mammogram documented in this encounter [facility] note* Diagnosis Onset Date Resolution Status Acute bronchitis, unspecified acute Acute sinusitis, unspecified acute Contact with and (suspected) exposure to other viral communicable diseases acute Infected wound acute Laceration of leg acute Nonhealing nonsurgical wound acute [facility] Work Phone: Evaluation note* Diagnosis Parkinson's disease (HCC)- Primary Paralysis agitans Abnormality of gait 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 documented in this encounter [facility] note* 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 documented in this encounter [facility] note* Diagnosis Onset Date Resolution Status Acute bronchitis, unspecified acute Acute sinusitis, unspecified acute Contact with and (suspected) exposure to other viral communicable diseases acute Infected wound acute Laceration of leg acute Nonhealing nonsurgical wound acute Infected wound acute Laceration of leg acute Nonhealing nonsurgical wound acute [facility] Work Phone: Evaluation note* Diagnosis 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 Parkinson's disease (HCC) Paralysis agitans Abnormality of gait 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 [facility] Diagnosis Onset Date Resolution Status Acute bronchitis, unspecified acute Acute sinusitis, unspecified acute Contact with and (suspected) exposure to other viral communicable diseases acute Infected wound acute Laceration of leg acute Nonhealing nonsurgical wound acute Infected wound acute Laceration of leg acute Nonhealing nonsurgical wound acute Infected wound acute Laceration of leg acute Nonhealing nonsurgical wound acute [facility] Work Phone: Evaluation note* 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 [facility]* Diagnosis Onset Date Resolution Status Infected wound acute Laceration of leg acute Nonhealing nonsurgical wound acute Infected wound acute Laceration of leg acute Nonhealing nonsurgical wound acute Infected wound acute Laceration of leg acute Nonhealing nonsurgical wound acute [facility] Work Phone: Evaluation note* Diagnosis Onset Date Resolution Status Infected wound acute Laceration of leg acute Nonhealing nonsurgical wound acute Infected wound acute Laceration of leg acute Nonhealing nonsurgical wound acute [facility] Work Phone: Evaluation noteNo assessment information available [facility] Work Phone: Evaluation note* Diagnosis Onset Date Resolution Status Essential hypertension chron ic Dysarthria acute Parkinson's disease acute Syncope acute [facility] Work Phone: Evaluation note* 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 documented in this encounter [facility]* Diagnosis Onset Date Resolution Status Essential hypertension chron ic Parkinson's disease acute Dysarthria resolved [facility] Work Phone: Evaluation note* Diagnosis Parkinson's disease without dyskinesia or fluctuating manifestations- Primary documented in this encounter [facility]* Diagnosis Encounter for screening mammogram for malignant neoplasm of breast Other screening mammogram [facility]* Diagnosis Onset Date Resolution Status Parkinson's disease acute Dysarthria resolved [facility] Work Phone: Evaluation note* Diagnosis Onset Date Resolution Status Brain TIA acute [facility] Work Phone: Evaluation note* Diagnosis Onset Date Resolution Status Brain TIA resolved [facility] Work Phone: Evaluation note* 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 [facility]* 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 [facility]* Diagnosis Onset Date Resolution Status Brain TIA resolved Anemia acute Debility acute Falls acute Generalized weakness acute Leukocytosis acute Parkinson's disease acute [facility] Work Phone: Evaluation note* Diagnosis Onset Date Resolution Status Brain TIA acute Debility acute Generalized weakness acute Leukocytosis resolved Acute encephalopathy acute Brain TIA acute Debility acute GERD (gastroesophageal reflux disease) acute Orthostatic hypotension acut e Syncope acute Hyperlipidemia chronic History of atrial myxoma chr onic Hyperlipidemia chronic Premature atrial contractions chronic [facility] Work Phone: Evaluation note* Diagnosis Parkinson's disease 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)- Primary [facility] encounter [facility]* Diagnosis Onset Date Resolution Status Brain TIA acute Debility acute Generalized weakness acute Leukocytosis resolved Brain TIA acute Debility acute GERD (gastroesophageal reflux disease) acute Orthostatic hypotension acut e Hyperlipidemia chronic Acute encephalopathy resolve d Syncope resolved History of atrial myxoma chr onic Hyperlipidemia chronic Premature atrial contractions chronic [facility] Work Phone: Evaluation note* Diagnosis Onset Date Resolution Status Debility acute Generalized weakness acute Leukocytosis resolved Brain TIA acute Debility acute GERD (gastroesophageal reflux disease) acute Orthostatic hypotension acut e Hyperlipidemia chronic Acute encephalopathy resolve d Syncope resolved History of atrial myxoma chr onic Hyperlipidemia chronic Premature atrial contractions [facility] Work Phone: Evaluation note* Diagnosis Parkinson's disease 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) documented in this encounter [facility] note* Diagnosis Parkinson's disease 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)- Primary Neurogenic orthostatic hypotension (HCC) documented in this encounter [facility] Discharge instructions* Instructions* Brandon Faye MD - 05/27/2019 OK to move fingers and thumb within confined of splint Ice and elevate for pain control OK to take tylenol/ibuprofen for pain relief Keep bandage on until first post operative appointment documented in this [facility] Work Phone: Hospital Discharge instructions No data available for this section [facility] Hospital Discharge instructions Additional Instructions Elevate [...] care physician this week to be reevaluated [facility] Work Phone: Progress note No data available for this section [facility] Reason for referral (narrative)* Diagnostic Procedure Only (Routine) - Authorized Specialty Diagnoses / Procedures Referred By Aron ramos Referred To Contact [facility] Diagnoses Encounter for screening mammogram for malignant neoplasm of breast Procedures GLEN SCREENING SCREENING MAMMOGRAPHY BI 2-VIEW BREAST INC Irasema Camacho MD [address] [place] [address] [facility] [address] [place] [address] Referral ID Status Reason Start Date Expiration Date Visits Requested Visits Authorized [id number] Authorized Auto-Generat ed Referral 2 05/04/2023 1 1 [facility] for referral (narrative)* Diagnostic Procedure Only (Routine) - Closed Specialty Diagnoses / Procedures Referred By Aron ramos Referred To Contact [facility] Diagnoses Encounter for screening mammogram for malignant neoplasm of breast Procedures GLEN SCREENING SCREENING MAMMOGRAPHY BI 2-VIEW BREAST INC Irasema Camacho MD [address] [place] [place] [address] [facility] [address] [place] [address] Referral ID Status Reason Start Date Expiration Date V isits Requested Visits Authorized [id number] Closed Auto-Generate d Referral 04/04/2022 05/04/2023 1 1 [facility] for referral (narrative)No reason for referral information availableWFulton [facility] Work Phone: Reason for visit Narrative* Diagnostic Procedure Only (Routine) - Closed Specialty Diagnoses / Procedures Referred By Contac t Referred To Contact [facility] Diagnoses Encounter for screening mammogram for malignant neoplasm of breast Procedures GLEN SCREENING SCREENING MAMMOGRAPHY BI 2-VIEW BREAST INC CAD Irasema Armenta MD [address] [place] [address] [facility] [address] [place] [address] Referral ID Status Reason Start Date Expiration Date V isits Requested Visits Authorized [id number] Closed Auto-Generate d Referral 04/04/2022 05/04/2023 1 1 [facility] Discharge Instructions * Instructions* Fariba [...] please call your surgeon. Please bring your [facility] E-Box - [email or web address] Surgical Information folder on the day of surgery. Please bring a photo ID and insurance information [facility]: ? Enter through Door number 2 ? Registration department is located here ? Patient will be escorted to [facility] ? [facility] does not open before 6am documented in this encounter History of Present Illness * Ramses Aguiar - 2019 1:30 PM EST Labs obtained on first attempt with 22 gauge needle at [facility] site, patient tolerated well, site benign. 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 Advance Directives and Living Will Power of Loan Administrator Latest Code Status on File Code Status Date Activated Date Inactivated Comments Full Code 05/27/2019 6:25 AM Advance Directive Response Recorded Date/ Time Living Will No June 17, 019 2:45pm Power of Loan Administrator Yes June 17, 2019 2:45pm Advance Directive Response Recorded Date/ Time Name of Medical Power of Loan Administrator Belkis Haynes April 14, 2022 1:37pm Living Will Yes April 14 1:37pm Power of Loan Administrator Yes April 14, 2022 1:37pm Advance Directive Response Recorded Date/ Time Name of Medical Power of Loan Administrator Belkis Haynes April 14, 2022 12:37pm Name of Medical Power of Loan Administrator elsa- daughter in law May 12, 2022 12:01p m Living Will Yes May 12, 2 022 12:01pm Power of Loan Administrator Yes May 12, 2022 12:01pm Advance Directive Response Recorded Date/ Time Name of Medical Power of Loan Administrator elsa- daughter in law May 12, 2022 1:01pm Living Will Yes May 12, 2 022 1:01pm Power of Loan Administrator Yes May 12, 2022 1:01pm Advance Directive Response Recorded Date/ Time Living Will Yes May 12, 2 022 1:01pm Power of Loan Administrator Yes May 12, 2022 1:01pm Advance Directive Response Recorded Date/ Time Name of Medical Power of Loan Administrator ELVIRA HAYNES January 15, 2023 1:25pm Living Will Yes January 15, 2023 1:25pm Power of Loan Administrator Yes January 15 1:25pm Advance Directive Response Recorded Date/ Time Name of Medical Power of Loan Administrator ELVIRA HAYNES January 15, 2023 12:25pm Living Will Yes January 15, 2023 12:25pm Power of Loan Administrator Yes January 15 12:25pm Advance Directive Response Recorded Date/ Time Living Will Yes January 15, 2023 12:25pm Power of Loan Administrator Yes January 15 12:25pm Advance Directive Response Recorded Date/ Time Name of Medical Power of Loan Administrator belkis haynes June 28, 2023 12:42pm Living Will Yes June 28 12:42pm Power of Loan Administrator Yes June 28, 2023 12:42pm Advance Directive Response Recorded Date/ Time Name of Medical Power of Loan Administrator Nicole Haynes June 28, 2023 7:34pm Living Will Yes June 28 7:34pm Power of Loan Administrator Yes June 28, 2023 7:34pm Advance Directive Response Recorded Date/ Time Name of Medical Power of Loan Administrator Nicole Haynes June 28, 2023 7:34pm Name of Medical Power of Loan Administrator Mckay (daughter in law) July 28, 2023 9:19am Living Will Yes July 28 9:19am Power of Loan Administrator Yes July 28, 2023 9:19am Advance Directive Response Recorded Date/ Time Name of Medical Power of Loan Administrator Nicole Haynes June 28, 2023 8:34pm Name of Medical Power of Loan Administrator Mckay (daughter in law) July 28, 2023 10:19am Name of Medical Power of Loan Administrator son September 08, 2023 10:17am Living Will Yes September 08, 2023 10:17am Power of Loan Administrator Yes September 07 10:17am Advance Directive Response Recorded Date/ Time Name of Medical Power of Loan Administrator Nicole Haynes June 28, 2023 8:34pm Name of Medical Power of Loan Administrator Mckay (daughter in law) July 28, 2023 10:19am Name of Medical Power of Loan Administrator Carolann haynes September 08, 2023 2:45pm Living Will Yes September 08, 2023 2:45pm Power of Loan Administrator Yes September 07 2:45pm Advance Directive Response Recorded Date/ Time Name of Medical Power of Loan Administrator Nicole Haynes June 28, 2023 8:34pm Name of Medical Power of Loan Administrator Mckay (daughter in law) July 28, 2023 10:19am Name of Medical Power of Loan Administrator Belkis Haynes primary; alternative sons, Elvira and Gonzalez Haynes September 18, 2023 2:51pm Living Will No September 18, 2023 2:51pm Power of Loan Administrator Yes September 17 2:51pm Name of Medical Power of Loan Administrator Carolann haynes September 08, 2023 2:45pm Advance Directive Response Recorded Date/ Time Name of Medical Power of Loan Administrator Mckay (daughter in law) July 28, 2023 10:19am Name of Medical Power of Loan Administrator Belkis Haynes primary; alternative Elvira sanz and Gonzalez Haynes September 18, 2023 2:51pm Living Will No September 18, 2023 2:51pm Power of Loan Administrator Yes September 17 2:51pm Name of Medical Power of Loan Administrator Carolann haynes September 08, 2023 2:45pm Summary [...] DEBILITY DEBILITY DEBILITY ABN HOLTER (SEE NOTES) SHELTER LAB WORK Reason for Visit Brain TIA [...] DEBILITY DEBILITY DEBILITY ABN HOLTER (SEE NOTES) SHELTER LAB WORK Reason for Visit Debility Generalized [...] STENOSIS. RX HERE Chief Complaint Admit Date [facility] WORK May 22, 2024 5:00am MONTHLY EXAM May 29, 2024 6:26pm SHE[facility] WORK June 10 5:00am NEW CONCERN June 17, 2024 1:14pm LABWORK June 19, 2024 5: 00am SHE[facility] WORK June 26, 2024 5:45am MONTHLY EXAM July 01, 2024 3 :35pm SHELTER LAB WORK July 17, 2024 5:00am NEW CONCERN July 31, 2024 1:57pm SHELTER LAB WORK August 14 4:00am Chief Complaint Admit Date SHELTER LAB WORK June 10 5:00am NEW CONCERN June 17, 2024 1:14pm LABWORK June 19, 2024 5: 00am SHELTER LAB WORK June 26, 2024 5:45am MONTHLY EXAM July 01, 2024 3 :35pm SHELTER LAB WORK July 17, 2024 5:00am NEW CONCERN July 31, 2024 1:57pm SHELTER LAB WORK August 14 4:00am MONTHLY EXAM August 26, 2024 2:4 0pm SHELTER LAB WORK September 11, 2024 5 :00am Chief Complaint Admit Date SHELTER LAB WORK July 17, 2024 5:00am NEW CONCERN July 31, 2024 1:57pm SHELTER LAB WORK August 14 4:00am MONTHLY EXAM August 26, 2024 2:4 0pm SHELTER LAB WORK September 11, 2024 5 :00am SHELTER LAB WORK September 18, 2024 5: 00am LABWORK October 22, 2024 5:00am Chief Complaint Admit Date SHELTER LAB WORK August 14 4:00am MONTHLY EXAM August 26, 2024 2:4 0pm SHELTER LAB WORK September 11, 2024 5 :00am Acute September 17, 2024 3:57 pm SHELTER LAB WORK September 18, 2024 5: 00am LABWORK October 22, 2024 5:00am SHELTER LAB WORK October 23, 2024 4:00 am LABWORK November 27, 2024 5:00 am Chief Complaint Admit Date SHELTER LAB WORK August 14 4:00am MONTHLY EXAM August 26, 2024 2:4 0pm SHELTER LAB WORK September 11, 2024 5 :00am Acute September 17, 2024 3:57 pm SHELTER LAB WORK September 18, 2024 5: 00am LABWORK October 22, 2024 5:00am SHELTER LAB WORK October 23, 2024 4:00 am NEW CONCERN November 07, 2024 1:38p m LABWORK November 27, 2024 5:00 am Chief Complaint Admit Date SHELTER LAB WORK September 11, 2024 5 :00am Acute September 17, 2024 3:57 pm SHELTER LAB WORK September 18, 2024 5: 00am LABWORK October 22, 2024 5:00am SHELTER LAB WORK October 23, 2024 4:00 am NEW CONCERN November 07, 2024 1:38p m New Problem November 17, 2024 3:30p m LABWORK November 27, 2024 5:00 am Chief Complaint Admit Date SHELTER LAB WORK September 11, 2024 5 :00am Acute September 17, 2024 3:57 pm SHELTER LAB WORK September 18, 2024 5: 00am LABWORK October 22, 2024 5:00am SHELTER LAB WORK October 23, 2024 4:00 am NEW CONCERN November 07, 2024 1:38p m New Problem November 17, 2024 3:30p m Monthly Visit November 18, 2024 9:13p m Urgent Visit November 26, 2024 5:14 pm LABWORK November 27, 2024 5:00 am Chief Complaint Admit Date SHELTER LAB WORK September 11, 2024 5 :00am Acute September 17, 2024 3:57 pm SHELTER LAB WORK September 18, 2024 5: 00am LABWORK October 22, 2024 5:00am SHELTER LAB WORK October 23, 2024 4:00 am NEW CONCERN November 07, 2024 1:38p m New Problem November 17, 2024 3:30p m Monthly Visit November 18, 2024 9:13p m LABWORK November 27, 2024 5:00 am Chief Complaint Admit Date Acute September 17, 2024 3:57 pm SHELTER LAB WORK September 18, 2024 5: 00am NEW CONCERN October 21, 2024 4:35pm LABWORK October 22, 2024 5:00am SHELTER LAB WORK October 23, 2024 4:00 am NEW CONCERN November 07, 2024 1:38p m New Problem November 17, 2024 3:30p m Monthly Visit November 18, 2024 9:13p m Urgent Visit November 26, 2024 5:14 pm LABWORK November 27, 2024 5:00 am SHELTER LAB WORK December 25, 2024 5: 00am LABWORK January 02, 2025 5:00 am Chief Complaint Admit Date NEW CONCERN October 21, 2024 4:35pm LABWORK October 22, 2024 5:00am SHELTER LAB WORK October 23, 2024 4:00 am NEW CONCERN November 07, 2024 1:38p m New Problem November 17, 2024 3:30p m Monthly Visit November 18, 2024 9:13p m Urgent Visit November 26, 2024 5:14 pm LABWORK November 27, 2024 5:00 am SHELTER LAB WORK December 25, 2024 5: 00am Urgent Exam December 31, 2024 4:50 pm LABWORK January 02, 2025 5:00 am Chief Complaint Admit Date NEW CONCERN October 21, 2024 4:35pm LABWORK October 22, 2024 5:00am SHELTER LAB WORK October 23, 2024 4:00 am NEW CONCERN November 07, 2024 1:38p m New Problem November 17, 2024 3:30p m Monthly Visit November 18, 2024 9:13p m Urgent Visit November 26, 2024 5:14 pm LABWORK November 27, 2024 5:00 am SHELTER LAB WORK December 25, 2024 5: 00am Urgent Exam December 31, 2024 4:50 pm LABWORK January 02, 2025 5:00 am New Concern January 09, 2025 1:26 pm Chief Complaint Admit Date NEW CONCERN October 21, 2024 4:35pm LABWORK October 22, 2024 5:00am SHELTER LAB WORK October 23, 2024 4:00 am NEW CONCERN November 07, 2024 1:38p m New Problem November 17, 2024 3:30p m Monthly Visit November 18, 2024 9:13p m Urgent Visit November 26, 2024 5:14 pm LABWORK November 27, 2024 5:00 am SHELTER LAB WORK December 25, 2024 5: 00am Urgent Exam December 31, 2024 4:50 pm LABWORK January 02, 2025 5:00 am New Concern January 09, 2025 1:26 pm MONTHLY EXAM January 20, 2025 3:5 8pm Chief Complaint Admit Date SHELTER LAB WORK October 23, 2024 4:00 am NEW CONCERN November 07, 2024 1:38p m New Problem November 17, 2024 3:30p m Monthly Visit November 18, 2024 9:13p m Urgent Visit November 26, 2024 5:14 pm LABWORK November 27, 2024 5:00 am SHELTER LAB WORK December 25, 2024 5: 00am Urgent Exam December 31, 2024 4:50 pm LABWORK January 02, 2025 5:00 am New Concern January 09, 2025 1:26 pm MONTHLY EXAM January 20, 2025 3:5 8pm SHELTER LAB WORK January 29, 2025 5:00am Urgent visit exam February 05, 2025 3: 06pm 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 February 13, 2025 1:02pm Chief Complaint Admit Date NEW CONCERN November 07, 2024 1:38p m New Problem November 17, 2024 3:30p m Monthly Visit November 18, 2024 9:13p m Urgent Visit November 26, 2024 5:14 pm LABWORK November 27, 2024 5:00 am SHELTER LAB WORK December 25, 2024 5: 00am Urgent Exam December 31, 2024 4:50 pm LABWORK January 02, 2025 5:00 am New Concern January 09, 2025 1:26 pm MONTHLY EXAM January 20, 2025 3:5 8pm SHELTER LAB WORK January 29, 2025 5:00am Urgent visit exam February 05, 2025 3: 06pm 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 February 13, 2025 1:02pm Reason for Referral Specialty Diagnoses / Procedures Referred By Aron t Referred To Contact Diagnoses Parkinson's disease 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) Procedures PROVIDER ORDERED FOLLOW UP OFFICE/OUTPATIENT NEW HIGH [facility] 60 MINUTES Selvin Felder MD [address] [place] [id number] Referral ID Status Reason Start Date Expiration Date Visits Requested Visits Authorized [id number] Authorized PCP Requested Referral 10/18/2023 01/16/2024 1 1 Specialty Diagnoses / Procedures Referred By Contac t Referred To Contact Diagnoses Parkinson's disease (HCC) Abnormality of 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) Procedures PROVIDER ORDERED FOLLOW UP OFFICE/OUTPATIENT NEW HIGH [facility] 60-74 MINUTES Sridevi Solo MD [address] [facility] [place] [address] Referral ID Status Reason Start Date Expiration Date Visits Requested Visits Authorized [id number] Pending Review PCP Requested Referral 07/05/2022 10/03/2022 1 1 Specialty Diagnoses / Procedures Referred By Contact Referred To Contact [facility] Diagnoses Parkinson's disease (HCC) Abnormality of 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) Procedures CONSULT TO PHYSICAL THERAPY PHYSICAL THERAPY EVALUATION HIGH COMPLEX 45 MINS Sridevi Solo MD [address] [place] [address] [facility] [address] [place] [address] Referral ID Status Reason Start Date Expiration Date Visits Requested Visits Authorized [id number] Pending Review Auto-Generat ed Referral 07/05/2022 07/05/2023 1 1 Specialty Diagnoses / Procedures Referred By Contac t Referred To Contact CT IMAGING Diagnoses 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 Procedures CT ABD/PEL WO IVCON CT ABD & PELVIS W/O CONTRAST Bart Brooks, DO [address] [place] [address] Ct Imaging Referral ID Status Reason Start Date Expiration Date Visits Requested Visits Authorized [id number] Pending Review Auto-Generat ed Referral 02/14/2022 03/16/2023 1 1 Additional Source Comments INFORMATION SOURCE (unrecogn ized section and content) DATE CREATED AUTHOR 06/23/2019 [facility] DATE CREATED AUTHOR AUTHOR'S ORGANIZ ATION 06/01/2020 [facility] DATE CREATED AUTHOR AUTHOR'S ORGANIZ ATION 02/16/2023 [facility] DATE CREATED AUTHOR AUTHOR'S ORGANIZ ATION 03/23/2023 [facility] DATE CREATED AUTHOR AUTHOR'S ORGANIZ ATION 10/23/2024 [facility] DATE CREATED AUTHOR AUTHOR'S ORGANIZ ATION 04/29/2025 [facility] Source Comments (unrecognize d section and content) In the event this informatio n is protected by the Federal Confidentiality of Alcohol and Drug Abuse Patient Records regulations: The Federal rules restrict any use of the information to criminally investigate or prosecute any alcohol or drug abuse patient.[facility] the event this information is protected by the Federal Confidentiality of Alcohol and Drug Abuse Patient Records regulations: The Federal rules restrict any use of the information to criminally investigate or prosecute any alcohol or drug abuse patient.[facility] the event this information is protected by the Federal Confidentiality of Alcohol and Drug Abuse Patient Records regulations: The Federal rules restrict any use of the information to criminally investigate or prosecute any alcohol or drug abuse patient.[facility] the event this information is protected by the Federal Confidentiality of Alcohol and Drug Abuse Patient Records regulations: The Federal rules restrict any use of the information to criminally investigate or prosecute any alcohol or drug abuse patient.[facility] the event this information is protected by the Federal Confidentiality of Alcohol and Drug Abuse Patient Records regulations: The Federal rules restrict any use of the information to criminally investigate or prosecute any alcohol or drug abuse patient.[facility] the event this information is protected by the Federal Confidentiality of Alcohol and Drug Abuse Patient Records regulations: The Federal rules restrict any use of the information to criminally investigate or prosecute any alcohol or drug abuse patient.[facility] the event this information is protected by the Federal Confidentiality of Alcohol and Drug Abuse Patient Records regulations: The Federal rules restrict any use of the information to criminally investigate or prosecute any alcohol or drug abuse patient.[facility] the event this information is protected by the Federal Confidentiality of Alcohol and Drug Abuse Patient Records regulations: The Federal rules restrict any use of the information to criminally investigate or prosecute any alcohol or drug abuse patient.[facility] the event this information is protected by the Federal Confidentiality of Alcohol and Drug Abuse Patient Records regulations: The Federal rules restrict any use of the information to criminally investigate or prosecute any alcohol or drug abuse patient.[facility] the event this information is protected by the Federal Confidentiality of Alcohol and Drug Abuse Patient Records regulations: The Federal rules restrict any use of the information to criminally investigate or prosecute any alcohol or drug abuse patient.[facility] the event this information is protected by the Federal Confidentiality of Alcohol and Drug Abuse Patient Records regulations: The Federal rules restrict any use of the information to criminally investigate or prosecute any alcohol or drug abuse patient.[facility] the event this information is protected by the Federal Confidentiality of Alcohol and Drug Abuse Patient Records regulations: The Federal rules restrict any use of the information to criminally investigate or prosecute any alcohol or drug abuse patient.[facility] the event this information is protected by the Federal Confidentiality of Alcohol and Drug Abuse Patient Records regulations: The Federal rules restrict any use of the information to criminally investigate or prosecute any alcohol or drug abuse patient.[facility] the event this information is protected by the Federal Confidentiality of Alcohol and Drug Abuse Patient Records regulations: The Federal rules restrict any use of the information to criminally investigate or prosecute any alcohol or drug abuse patient.[facility] Center[facility] the event this information is protected by the Federal Confidentiality of Alcohol and Drug Abuse Patient Records regulations: The Federal rules restrict any use of the information to criminally investigate or prosecute any alcohol or drug abuse patient.[facility] the event this information is protected by the Federal Confidentiality of Alcohol and Drug Abuse Patient Records regulations: The Federal rules restrict any use of the information to criminally investigate or prosecute any alcohol or drug abuse patient.[facility] Center[facility] the event this information is protected by the Federal Confidentiality of Alcohol and Drug Abuse Patient Records regulations: The Federal rules restrict any use of the information to criminally investigate or prosecute any alcohol or drug abuse patient.[facility] Center[facility] the event this information is protected by the Federal Confidentiality of Alcohol and Drug Abuse Patient Records regulations: The Federal rules restrict any use of the information to criminally investigate or prosecute any alcohol or drug abuse patient.[facility] Center[facility] the event this information is protected by the Federal Confidentiality of Alcohol and Drug Abuse Patient Records regulations: The Federal rules restrict any use of the information to criminally investigate or prosecute any alcohol or drug abuse patient.[facility] Center[facility] the event this information is protected by the Federal Confidentiality of Alcohol and Drug Abuse Patient Records regulations: The Federal rules restrict any use of the information to criminally investigate or prosecute any alcohol or drug abuse patient.[facility] Center[facility] the event this information is protected by the Federal Confidentiality of Alcohol and Drug Abuse Patient Records regulations: The Federal rules restrict any use of the information to criminally investigate or prosecute any alcohol or drug abuse patient.[facility] Center[facility] the event this information is protected by the Federal Confidentiality of Alcohol and Drug Abuse Patient Records regulations: The Federal rules restrict any use of the information to criminally investigate or prosecute any alcohol or drug abuse patient.[facility] Center[facility] the event this information is protected by the Federal Confidentiality of Alcohol and Drug Abuse Patient Records regulations: The Federal rules restrict any use of the information to criminally investigate or prosecute any alcohol or drug abuse patient.[facility] Center[facility] the event this information is protected by the Federal Confidentiality of Alcohol and Drug Abuse Patient Records regulations: The Federal rules restrict any use of the information to criminally investigate or prosecute any alcohol or drug abuse patient.[facility] CenterIn the event this information is protected by the Federal Confidentiality of Alcohol and Drug Abuse Patient Records regulations: The Federal rules restrict any use of the information to criminally investigate or prosecute any alcohol or drug abuse patient.[facility] Center[facility] the event this information is protected by the Federal Confidentiality of Alcohol and Drug Abuse Patient Records regulations: The Federal rules restrict any use of the information to criminally investigate or prosecute any alcohol or drug abuse patient.[facility] Reason for Visit (unrecogniz ed section and content) Reason Comments Parkinson's Disease Specialty Diagnoses / Procedures Referred By Contac t Referred To Contact Diagnoses Parkinson's disease 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) Procedures PROVIDER ORDERED FOLLOW UP OFFICE/OUTPATIENT [facility] 60 MINUTES Selvin Felder MD [address] [address] Referral ID Status Reason Start Date Expiration Date V isits Requested Visits Authorized [id number] Closed PCP Requested Referral 10/18/2023 01/16/2024 1 [...] HIGH COMPLEX 45 MINS Sridevi Solo MD [address] [place] [address] Tejal Willard, PT [address] [place] [address] Referral ID Status Reason Start Date Expiration Date V isits Requested Visits Authorized [id number] Authorized 07/05/2022 07/05/2023 1 99 Reason Comments Established Patient Reason Comments Patient Request Reason Comments Follow Up Specialty Diagnoses / Procedures Referred By Contac t Referred To Contact Diagnoses Tongue biting Procedures PROVIDER ORDERED FOLLOW UP Selvin Felder MD [address] [address] Referral ID Status Reason Start Date Expiration Date V isits Requested Visits Authorized [id number] Closed PCP Requested Referral 10/03/2022 01/01/2023 1 1 Reason Comments Patient Question Reason Onset Date Comments Refill Request 07/30/2023 Reason Comments Appointment Specialty Diagnoses / Procedures Referred By Contac t Referred To Contact Diagnoses Parkinson's disease 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) Procedures PROVIDER ORDERED FOLLOW UP OFFICE/OUTPATIENT NEW HIGH MDM 60 MINUTES Selvin Felder MD [address] [address] Phone: tel: fax: Referral ID Status Reason Start Date Expiration Date V isits Requested Visits Authorized [id number] Closed PCP Requested Referral 04/21/2024 07/20/2024 1 1 Care Teams (unrecognized sec tion and content) Service Loss Control Consultant Relationship Specialty Start Date End Date Howard Zimmerman Chi PCP - General Gerontology 11/23/14 Service Loss Control Consultant Relationship Specialty Start Date End Date Erasmo, Howard Chi PCP - General Gerontology 11/23/14 Service Loss Control Consultant Relationship Specialty Start Date End Date Erasmo, Howard Chi PCP - General Gerontology 11/23/14 Service Loss Control Consultant Relationship Specialty Start Date End Date Erasmo, Howard Chi PCP - General Gerontology 11/23/14 Service Loss Control Consultant Relationship Specialty Start Date End Date Erasmo, Howard Chi PCP - General Gerontology 11/23/14 Service Loss Control Consultant Relationship Specialty Start Date End Date Erasmo, Howard Chi PCP - General Gerontology 11/23/14 Service Loss Control Consultant Relationship Specialty Start Date End Date Erasmo, Howard Chi PCP - General Gerontology 11/23/14 Service Loss Control Consultant Relationship Specialty Start Date End Date Erasmo, [...] MD Primary Care Provider Active Rhoda Mercado DEGREASER OPERATOR, DEGREASER OPERATOR-C Other Provider Active Paige BRUNSON, PA Attending Provider Active Team Status: Active Member Role Status Dates Dr. Howard Zimmerman MD Primary Care Provider Active Rhoda Mercado DEGREASER OPERATOR, DEGREASER OPERATOR-C Attending Provider, Other Pro vider Active Team Status: Inactive Member Role Status Dates Dr. Howard Zimmerman MD Primary Care Provider, Attending Provider Active Team Status: Inactive Member Role Status Dates Dr. Howard Zimmerman MD Primary Care Provider, Attending Provider Active Howard Zimmerman MD Referring Provider Active Team Status: Inactive Member Role Status Dates Dr. Howard Zimmemran MD Primary Care Provi misha, Attending Provider, Referring Provider Active Team Status: Inactive Member Role Status Dates Dr. Howard Zimmerman MD Primary Care Provider Active Dr. Joel Mccarthy DO Attending Provider, Emergency P ignacio Active Team Status: Inactive Member Role Status Dates Dr. Howard Zimmerman MD Primary Care Provider Active Rhoda Mercado DEGREASER OPERATOR, DEGREASER OPERATOR-C Attending Provider Active Service Loss Control Consultant Relationship Specialty Start Date End Date Howard [...] Howard Zimmerman MD Primary Care Provider Active CHUCKIE LAUREANOIN Attending Provider, Referring Provider Ac tive Team [...] DO Admit Provider, Attending Pro vider Active Service Loss Control Consultant Relationship Specialty Start Date End Date Howard Zimmerman Chi PCP - General Gerontology 11/23/14 Team Status: Active Member Role Status Dates Dr. Howard Zimmerman MD Primary Care Provider Active Dr. Drake Beck MD Attending Provider, Referring Provider Active Service Loss Control Consultant Relationship Specialty Start Date End Date Howard Zimmerman Chi PCP - General Gerontology 11/23/14 Service Loss Control Consultant Relationship Specialty Start Date End Date Howard [...] Mack MD Admit Provider, Other Provider Active Carlso Whipple MD Other Provider Active Dr. Karen [...] Dr. Umesh Velázquez MD Emergency Provider Active Service Loss Control Consultant Relationship Specialty Start Date End Date Howard Zimmerman Chi PCP - General Gerontology 11/23/14 Service Loss Control Consultant Relationship Specialty Start Date End Date Howard Zimmerman Chi PCP - General Gerontology 11/23/14 Service Loss Control Consultant Relationship Specialty Start Date End Date Howard [...] , Emergency Provider Active Dr. Gonzalez Garza DO [...] MD Other Provider Active Koko Mckeon , MS Other Provider Active Ashlee Bautista MD [...] Stroud MD Other Provider Active Dr. John uQesada MD Other Provider Active Dr. Pamela Kamara [...] MD Other Provider Active Koko Mckeon , MS Other Provider Active Ashlee Bautista MD [...] Provi misha, Admit Provider, Attending Provider Active Service Loss Control Consultant Relationship Specialty Start Date End Date Howard Zimmerman Chi PCP - General Gerontology 11/23/14 Team Status: Inactive Member Role Status Dates Dr. Howard Zimmerman MD Primary Care Provider Active Odalis MERCER MD Attending Provider, Referring Provider Active Team Status: Active Member Role Status Dates Dr. Howard Zimmerman MD Primary Care Provider Active Odalis MERCER MD Attending Provider Active Service Loss Control Consultant Relationship Specialty Start Date End Date Howard Zimmerman Chi PCP - General Gerontology 11/23/14 Service Loss Control Consultant Relationship Specialty Start Date End Date Howard [...] 2024 End: May 29, 2024 Pam Pack NP DEGREASER OPERATOR-C Attending Provider Active Start: May 29, 2024 [...] 2024 End: July 31, 2024 Pam Pack NP DEGREASER OPERATOR-C Attending Provider Active Start: July 31, 2024 [...] September 11, 2024 End: September 11, 2024 Service Loss Control Consultant Relationship Specialty Start Date End Date Howard [...] End: September 17, 2024 Pam Pack NP DEGREASER OPERATOR-C Attending Provider Active Start: September 17, 2024 [...] 2024 End: November 07, 2024 Pam Pack NP DEGREASER OPERATOR-C Attending Provider Active Start: November 07, 2024 End: November 07, 2024 Team Status: Active Member Role/Relationship Status Dates Dr. Howard Zimmerman MD Family Provider Active Dr. Howard Zimmerman MD Primary Care Provider Active Team Status: Inactive Member Role/Relationship Status Dates Dr. Howard Zimmerman MD Primary Care Provider Active Start: September 11, 2024 End: September 11, 2024 Odalis MERCER MD Attending Provider Active Start: September 11, 2024 End: September 11, 2024 Team Status: Inactive Member Role/Relationship Status Dates Dr. Howard Zimmerman MD Primary Care Provider Active Start: September 17, 2024 End: September 17, 2024 Pam Pack NP DEGREASER OPERATOR-C Attending Provider Active Start: September 17, 2024 End: September 17, 2024 Team Status: Inactive Member Role/Relationship Status Dates Dr. Howard Zimmerman MD Primary Care Provider Active Start: September 18, 2024 End: September 18, 2024 Odalis MERCER MD Attending Provider Active Start: September 18, 2024 End: September 18, 2024 Team Status: Inactive Member Role/Relationship Status Dates Dr. Howard Zimmerman MD Primary Care Provider Active Start: October 22, 2024 End: October 22, 2024 Odalis MERCER MD Attending Provider Active Start: October 22, 2024 End: October 22, 2024 Team Status: Active Member Role/Relationship Status Dates Dr. Howard Zimmerman MD Primary Care Provider Active Start: October 23, 2024 Odalis MERCER MD Attending Provider Active Start: October 23, 2024 Odalis MERCER MD Referring Provider Active Start: October 23, 2024 Team Status: Inactive Member Role/Relationship Status Dates Dr. Howard Zimmerman MD Primary Care Provider Active Start: November 07, 2024 End: November 07, 2024 Pam Pack NP DEGREASER OPERATOR-C Attending Provider Active Start: November 07, 2024 End: November 07, 2024 Team Status: Inactive Member Role/Relationship Status Dates Dr. Howard Zimmerman MD Primary Care Provider Active Start: November 17, 2024 End: November 17, 2024 Pam Pack NP DEGREASER OPERATOR-C Attending Provider Active Start: November 17, 2024 End: November 17, 2024 Team Status: Active Member Role/Relationship Status Dates Dr. Howard Zimmerman MD Primary Care Provider Active Start: November 27, 2024 Odalis MERCER MD Attending Provider Active Start: November 27, 2024 Team Status: Active Member Role/Relationship Status Dates Dr. Howard Zimmerman MD Primary Care Provider Active Start: December 25, 2024 Odalis MERCER MD Attending Provider Active Start: December 25, 2024 Team Status: Active Member Role/Relationship Status Dates Dr. Howard Zimmerman MD Primary Care Provider Active Start: January 02, 2025 Odalis MERCER MD Attending Provider Active Start: January 02, 2025 Team Status: Inactive Member Role/Relationship Status Dates Dr. Howard Zimmerman MD Primary Care Provider Active Start: November 18, 2024 End: November 18, 2024 Dr. Odalis Saravia MD Attending Provider Active Start: November 18, 2024 End: November 18, 2024 Team Status: Inactive Member Role/Relationship Status Dates Dr. Howard Zimmerman MD Primary Care Provider Active Start: November 26, 2024 End: November 26, 2024 Pam Pack DEGREASER OPERATOR, DEGREASER OPERATOR-C Attending Provider Active Start: November 26, 2024 End: November 26, 2024 Team Status: Active Member Role/Relationship Status Dates Dr. Howard Zimmerman MD Primary Care Provider Active Start: November 27, 2024 Odalis MERCER MD Attending Provider Active Start: November 27, 2024 Team Status: Active Member Role/Relationship Status Dates Dr. Howard Zimmerman MD Primary Care Provider Active Start: December 25, 2024 Odalis MERCER MD Attending Provider Active Start: December 25, 2024 Team Status: Active Member Role/Relationship Status Dates Dr. Howard Zimmerman MD Primary Care Provider Active Start: January 02, 2025 Odalis MERCER MD Attending Provider Active Start: January 02, 2025 Team Status: Active Member Role/Relationship Status Dates Dr. Howard Zimmerman MD Primary Care Provider Active Start: November 27, 2024 Odalis MERCER MD Attending Provider Active Start: November 27, 2024 Team Status: Active Member Role/Relationship Status Dates Dr. Howard Zimmerman MD Primary Care Provider Active Start: December 25, 2024 Odalis MERCER MD Attending Provider Active Start: December 25, 2024 Team Status: Active Member Role/Relationship Status Dates Dr. Howard Zimmerman MD Primary Care Provider Active Start: January 02, 2025 Odalis MERCER MD Attending Provider Active Start: January 02, 2025 Team Status: Inactive Member Role/Relationship Status Dates Dr. Howard Zimmerman MD Primary Care Provider Active Start: September 17, 2024 End: September 17, 2024 Pam Pack DEGREASER OPERATOR, DEGREASER OPERATOR-C Attending Provider Active Start: September 17, 2024 End: September 17, 2024 Team Status: Inactive Member Role/Relationship Status Dates Dr. Howard Zimmerman MD Primary Care Provider Active Start: September 18, 2024 End: September 18, 2024 Odalis MERCER MD Attending Provider Active Start: September 18, 2024 End: September 18, 2024 Team Status: Inactive Member Role/Relationship Status Dates Dr. Howard Zimmerman MD Primary Care Provider Active Start: October 21, 2024 End: October 21, 2024 Pam Pack DEGREASER OPERATOR, DEGREASER OPERATOR-C Attending Provider Active Start: October 21, 2024 End: October 21, 2024 Team Status: Inactive Member Role/Relationship Status Dates Dr. Howard Zimmerman MD Primary Care Provider Active Start: October 21, 2024 End: October 21, 2024 Pam Pack DEGREASER OPERATOR, DEGREASER OPERATOR-C Attending Provider Active Start: October 21, 2024 End: October 21, 2024 Team Status: Inactive Member Role/Relationship Status Dates Dr. Howard Zimmerman MD Primary Care Provider Active Start: October 22, 2024 End: October 22, 2024 Odalis MERCER MD Attending Provider Active Start: October 22, 2024 End: October 22, 2024 Team Status: Active Member Role/Relationship Status Dates Dr. Howard Zimmerman MD Primary Care Provider Active Start: October 23, 2024 Odalis MERCER MD Attending Provider Active Start: October 23, 2024 Odalis MERCER MD Referring Provider Active Start: October 23, 2024 Team Status: Inactive Member Role/Relationship Status Dates Dr. Howard Zimmerman MD Primary Care Provider Active Start: November 07, 2024 End: November 07, 2024 Pam Pack DEGREASER OPERATOR, DEGREASER OPERATOR-C Attending Provider Active Start: November 07, 2024 End: November 07, 2024 Team Status: Inactive Member Role/Relationship Status Dates Dr. Howard Zimmerman MD Primary Care Provider Active Start: November 17, 2024 End: November 17, 2024 Pam Pack DEGREASER OPERATOR, DEGREASER OPERATOR-C Attending Provider Active Start: November 17, 2024 End: November 17, 2024 Team Status: Inactive Member Role/Relationship Status Dates Dr. Howard Zimmerman MD Primary Care Provider Active Start: November 18, 2024 End: November 18, 2024 Dr. Odalis Saravia MD Attending Provider Active Start: November 18, 2024 End: November 18, 2024 Team Status: Inactive Member Role/Relationship Status Dates Dr. Howard Zimmerman MD Primary Care Provider Active Start: November 26, 2024 End: November 26, 2024 Pam Pack DEGREASER OPERATOR, DEGREASER OPERATOR-C Attending Provider Active Start: November 26, 2024 End: November 26, 2024 Team Status: Inactive Member Role/Relationship Status Dates Dr. Howard Zimmerman MD Primary Care Provider Active Start: December 31, 2024 End: December 31, 2024 Pam Pack DEGREASER OPERATOR, DEGREASER OPERATOR-C Attending Provider Active Start: December 31, 2024 End: December 31, 2024 Team Status: Inactive Member Role/Relationship Status Dates Dr. Howard Zimmerman MD Primary Care Provider Active Start: January 09, 2025 End: January 09, 2025 Pam Pack DEGREASER OPERATOR, DEGREASER OPERATOR-C Attending Provider Active Start: January 09, 2025 End: January 09, 2025 Team Status: Inactive Member Role/Relationship Status Dates Dr. Howard Zimmerman MD Primary Care Provider Active Start: January 20, 2025 End: January 20, 2025 Dr. Odalis Saravia MD Attending Provider Active Start: January 20, 2025 End: January 20, 2025 Team Status: Active Member Role/Relationship Status Dates Dr. Howard Zimmerman MD Primary Care Provider Active Start: January 29, 2025 Odalis MERCER MD Attending Provider Active Start: January 29, 2025 Team Status: Active Member Role/Relationship Status Dates Dr. Howard Zimmerman MD Primary Care Provider Active Team Status: Active Member Role/Relationship Status Dates Dr. Howard Zimmerman MD Primary Care Provider Active Start: October 23, 2024 Odalis MERCER MD Attending Provider Active Start: October 23, 2024 Odalis MERCER MD Referring Provider Active Start: October 23, 2024 Team Status: Inactive Member Role/Relationship Status Dates Dr. Howard Zimmerman MD Primary Care Provider Active Start: November 07, 2024 End: November 07, 2024 Pam Pack DEGREASER OPERATOR, DEGREASER OPERATOR-C Attending Provider Active Start: November 07, 2024 End: November 07, 2024 Team Status: Inactive Member Role/Relationship Status Dates Dr. Howard Zimmerman MD Primary Care Provider Active Start: November 17, 2024 End: November 17, 2024 Pam Pack DEGREASER OPERATOR, DEGREASER OPERATOR-C Attending Provider Active Start: November 17, 2024 End: November 17, 2024 Team Status: Inactive Member Role/Relationship Status Dates Dr. Howard Zimmerman MD Primary Care Provider Active Start: November 18, 2024 End: November 18, 2024 Dr. Odalis Saravia MD Attending Provider Active Start: November 18, 2024 End: November 18, 2024 Team Status: Inactive Member Role/Relationship Status Dates Dr. Howard Zimmerman MD Primary Care Provider Active Start: November 26, 2024 End: November 26, 2024 Pam Pack DEGREASER OPERATOR, DEGREASER OPERATOR-C Attending Provider Active Start: November 26, 2024 End: November 26, 2024 Team Status: Active Member Role/Relationship Status Dates Dr. Howard Zimmerman MD Primary Care Provider Active Start: November 27, 2024 Odalis MERCER MD Attending Provider Active Start: November 27, 2024 Team Status: Active Member Role/Relationship Status Dates Dr. Howard Zimmerman MD Primary Care Provider Active Start: December 25, 2024 Odalis MERCER MD Attending Provider Active Start: December 25, 2024 Team Status: Inactive Member Role/Relationship Status Dates Dr. Howard Zimmerman MD Primary Care Provider Active Start: December 31, 2024 End: December 31, 2024 Pam Pack NP, DEGREASER OPERATOR-C Attending Provider Active Start: December 31, 2024 End: December 31, 2024 Team Status: Active Member Role/Relationship Status Dates Dr. Howard Zimmerman MD Primary Care Provider Active Start: January 02, 2025 Odalis MERCER MD Attending Provider Active Start: January 02, 2025 Team Status: Inactive Member Role/Relationship Status Dates Dr. Howard Zimmerman MD Primary Care Provider Active Start: January 09, 2025 End: January 09, 2025 Pam Pack NP, DEGREASER OPERATOR-C Attending Provider Active Start: January 09, 2025 End: January 09, 2025 Team Status: Inactive Member Role/Relationship Status Dates Dr. Howard Zimmerman MD Primary Care Provider Active Start: January 20, 2025 End: January 20, 2025 Dr. Odalis Saravia MD Attending Provider Active Start: January 20, 2025 End: January 20, 2025 Team Status: Active Member Role/Relationship Status Dates Dr. Howard Zimmerman MD Primary Care Provider Active Start: January 29, 2025 Odalis MERCER MD Attending Provider Active Start: January 29, 2025 Team Status: Inactive Member Role/Relationship Status Dates Dr. Howard Zimmerman MD Primary Care Provider Active Start: February 05, 2025 End: February 05, 2025 Pam Pack DEGREASER OPERATOR, DEGREASER OPERATOR-C Attending Provider Active Start: February 05, 2025 End: February 05, 2025 Team Status: Active Member Role/Relationship Status Dates Dr. Howard Zimmerman MD Primary Care Provider Active Start: February 13, 2025 Dr. Odalis Saravia MD Attending Provider Active Start: February 13, 2025 Dr. Odalis Saravia MD Referring Provider Active Start: February 13, 2025 Team Status: Active Member Role/Relationship Status Dates Dr. Howard Zimmerman MD Primary care physician Active Team Status: Inactive Member Role/Relationship Status Dates Dr. Howard Zimmerman MD Primary care physician Active Start: November 07, 2024 End: November 07, 2024 Pam Pack NP, DEGREASER OPERATOR-C Attending physician Active Start: November 07, 2024 End: November 07, 2024 Team Status: Inactive Member Role/Relationship Status Dates Dr. Howard Zimmerman MD Primary care physician Active Start: November 17, 2024 End: November 17, 2024 Pam Pack NP, DEGREASER OPERATOR-C Attending physician Active Start: November 17, 2024 End: November 17, 2024 Team Status: Inactive Member Role/Relationship Status Dates Dr. Howard Zimmerman MD Primary care physician Active Start: November 18, 2024 End: November 18, 2024 Dr. Odalis Saravia MD Attending physician Active Start: November 18, 2024 End: November 18, 2024 Team Status: Inactive Member Role/Relationship Status Dates Dr. Howard Zimmerman MD Primary care physician Active Start: November 26, 2024 End: November 26, 2024 Pam Pack NP, DEGREASER OPERATOR-C Attending physician Active Start: November 26, 2024 End: November 26, 2024 Team Status: Active Member Role/Relationship Status Dates Dr. Howard Zimmerman MD Primary care physician Active Start: November 27, 2024 Odalis MERCER MD Attending physician Active Start: November 27, 2024 Team Status: Active Member Role/Relationship Status Dates Dr. Howard Zimmerman MD Primary care physician Active Start: December 25, 2024 Odalis MERCER MD Attending physician Active Start: December 25, 2024 Team Status: Inactive Member Role/Relationship Status Dates Dr. Howard Zimmerman MD Primary care physician Active Start: December 31, 2024 End: December 31, 2024 Pam Pack NP, DEGREASER OPERATOR-C Attending physician Active Start: December 31, 2024 End: December 31, 2024 Team Status: Active Member Role/Relationship Status Dates Dr. Howard Zimmerman MD Primary care physician Active Start: January 02, 2025 Odalis MERCER MD Attending physician Active Start: January 02, 2025 Team Status: Inactive Member Role/Relationship Status Dates Dr. Howard Zimmerman MD Primary care physician Active Start: January 09, 2025 End: January 09, 2025 Pam Pack NP, DEGREASER OPERATOR-C Attending physician Active Start: January 09, 2025 End: January 09, 2025 Team Status: Inactive Member Role/Relationship Status Dates Dr. Howard Zimmerman MD Primary care physician Active Start: January 20, 2025 End: January 20, 2025 Dr. Odalsi Saravia MD Attending physician Active Start: January 20, 2025 End: January 20, 2025 Team Status: Active Member Role/Relationship Status Dates Dr. Howard Zimmerman MD Primary care physician Active Start: January 29, 2025 Odalis MERCER MD Attending physician Active Start: January 29, 2025 Team Status: Inactive Member Role/Relationship Status Dates Dr. Howard Zimmerman MD Primary care physician Active Start: February 05, 2025 End: February 05, 2025 Pam Pack NP, DEGREASER OPERATOR-C Attending physician Active Start: February 05, 2025 End: February 05, 2025 Team Status: Inactive Member Role/Relationship Status Dates Dr. Howard Zimmerman MD Primary care physician Active Start: February 13, 2025 End: February 13, 2025 Dr. Odalis Saravia MD Attending physician Active Start: February 13, 2025 End: February 13, 2025 Dr. Odalis Saravia MD Referring Provider Active Start: February 13, 2025 End: February 13, 2025 Team Status: Active Member Role/Relationship Status Dates Dr. Howard Zimmerman MD Primary care physician Active Start: February 26, 2025 Odalis MERCER MD Attending physician Active Start: February 26, 2025 Goals (unrecognized section and content) Goals may [...] BE BASED ON THE PRIMARY CLINICAL RECORDS. [facility] provides no warranty or guarantee of the accuracy or completeness of information in this document.
[2025-04-30 09:09] LABS: Hematocrit 36.3 % (37-47); Hemoglobin 12.0 g/dL (12.0-15.0); Immature Granulocytes Count 0.040 X10^3/uL (0.0-0.0); Mean Corp Hgb Conc 33.1 g/dL (32-36); Mean Corpuscular Volume 97.3 fL (81-99); Mean Platelet Vol. 10.2 fl (6.2-12.0); NRBC Flagged by Analyzer 0 % (0-5); POSITIVE DIFFERENTIAL YES; POSITIVE MORPHOLOGY YES; Platelet Count 332 K/mm3 (150-450); RBC Distribution Width CV 13.1 % (11.6-14.6); RBC Distribution Width SD 46.9 fl (35.1-43.9); Red Blood Count 3.73 M/mm3 (4.2-5.4); White Blood Count 15.9 K/mm3 (4.4-11.0)
[2025-04-30 09:32] LABS: AST(SGOT) 41 U/L (<=31); Alanine Aminotransfer ALT/SGPT 14 U/L (<=34); Albumin, Serum 4.0 g/dL (3.4-4.8); Alkaline Phosphatase 188 U/L (35-104); Anion Gap 10 (5-15); BUN 30 mg/dL (4-19); BUN/Creat Ratio 27.8 RATIO (10-20); Bilirubin, Direct 0.14 mg/dL (0.00-0.30); Calcium,Total 9.4 mg/dL (7.6-11.0); Carbon Dioxide 23.9 mmol/L (21.0-32.0); Chloride 104 mmol/L (98-108); Cholesterol 207 mg/dL (<=200); Globulin 2.9 g/dL (2.2-4.2); Glucose 82 mg/dL (70-99); Potassium 4.5 mmol/L (3.3-5.1); Triglycerides 253 mg/dL
[2025-04-30 09:33] LABS: Low Density Lipoprotein Calc. 121 mg/dL; Very Low Density Lipoprotein 51 mg/dL (5-40); Vitamin B12 1133 pg/mL (180-914); Vitamin D,25 Hydroxy 38.6 ng/mL (30-100); cholesterol:hdl ratio screen 5.05
[2025-04-30 09:44] LABS: Differential Indicated SCAN CRITERIA MET
[2025-04-30 09:46] LABS: Reactive Lymphocyte 1+
== END ==
LOC: OLS.WHLTSB 04:00
PROVIDERS: PCP Family Medicine Geriatric Medicine; Referring Provider Internal Medicine; Visit Provider Internal Medicine
DX: G20.C Parkinsonism, unspecified (principal); N18.30 Chronic kidney disease, stage 3 unspecified; S42.201A Unspecified fracture of upper end of right humerus, initial encounter for closed fracture; K08.89 Other specified disorders of teeth and supporting structures
CPT/HCPCS: 36415; 80048; 80061; 80076; 82306; 82607; 85025

== ENCOUNTER → 2025-05-28 | Outpatient (REF) | payer MEDICARE, SELFPAY ==
--- OUTSIDE RECORDS SUMMARY | 2025-05-28 02:58 | XMS RPT_ITS | CCD ---
Author Organization [facility] Care Team Providers Care Wedding Consultant Name Role Phone FARHAD Reagan, Amy [...] Howard Zimmerman Chi Primary Care Provider Dr. oHward Zimmerman Chi Primary Care Provider Erasmo, Dr. Howard Morris Referring Provider NANNETTE Chung Attending Provider Dr. Howard Zimmerman Chi Primary Care Provider Dr. Howard Zimmerman Chi Referring Provider NANNETTE Chung Attending Provider Howard Zimmerman Chi Primary Care Provider Rogelio LITERACY CONSULTANT, LITERACY CONSULTANTMelva Duong Other Provider NANNETTE Edwards Attending Provider Dr. Howard Zimmerman Chi Primary Care Provider Rogelio LITERACY CONSULTANT, LITERACY CONSULTANT-C Rhoda Other Provider Yadira BRUNSON, NANNETTE Gibson [...] Other Provider Dr. Timothy Fortune Other Provider [phone] Dr. Cherie Mark Other Provider Dr. [...] Referring Provider Dr. Germán Benson Emergency Provider [phone] Dr. Gonzalez Garza Admit Provider Dr. Gonzalez [...] Howard Zimmerman Chi Primary Care Provider [phone] Howard Zimmerman Chi Primary Care Provider [...] Dr. Elian Stroud Other Provider Dr. John Quesdaa Other Provider Dr. Pamela Kamara Other Provider [...] Other Provider Dr. Timothy Fortune Other Provider [phone] Cherie Mark Other Provider Dr. Jose Benson Other Provider Dr. Isiah Kelly Other Provider Dr. Vincent Suresh Other Provider Dr. uRy Sun Other Provider Dr. Elian Stroud Other Provider Dr. John Quesada Other Provider [phone] Pamela Kamara Other Provider Dr. Jonathon Rodríguez Other Provider Dr. Mallika Pinon Other Provider Unavailable MD Roopa Tolbert Other Provider Unavailable Dr. Howard Zimmerman MD, Chi Primary Care Provider Odalis Saravia MD Attending Provider Unavaila ble Ticknir LITERACY CONSULTANT-CPam Attending Provider Dr. Odalis Saravia MD Attending Provider Odalis Saravia MD Referring Provider UnavailDr. Howard Nielson MD, Chi Primary Care Provider Odalis Saravia MD Attending Provider Unavaila ble Tickton LITERACY CONSULTANT-CPam Attending Provider SELVIN FELDER Attending Unavailable SELVIN [...] Saravia MD Attending Provider Unavaila ble Tickton LITERACY CONSULTANT-C, Pam Attending Provider Erasmo MASON, Dr. Howard Morris Primary Care Provider [phone] Odalis Saravia MD Attending Provider Unavailjolene Saravia MD, Odalis Referring Provider Unavaila ashly Saravia MD, Dr. Jacobo Attending Provider Erasmo MASON, Dr. Howard Morris Primary Care Provider Odalis Saravia MD Attending Provider Unavailjolene Zimmerman MD, Dr. Howard Morris Primary Care Provider Tickton LITERACY CONSULTANT-C, Pam Attending Provider Manjit MASON, Odalis Attending Provider Unavailjolene Zimmerman MD, Dr. Howard Morris Primary Care Provider Odalis Saravia MD Attending Provider Unavaila ble Tickton LITERACY CONSULTANT-C, Pam Attending Provider Manjit MASON, Dr. Jacobo Referring Provider Erasmo MASON, Dr. Howard Morris Primary Care Physician [phone] Ticknir LITERACY CONSULTANT-C, Pam Attending Physician Manjit MASON, Dr. Jacobo Attending Physician Odalis Saravia MD Attending Physician Unavail able OlegheCandiceongbe Attending Unavailable Erasmo, Howard Chi Primary Care Unavailable Oleghe RUSLAN, Efbonnieongbe Attending Unavailabl e Erasmo, Howard [facility] Unavailable Tickton LITERACY CONSULTANTPam Attending Unavailable Erasmo, Howard Chi Primary Care [...] Erasmo, Howard Chi Primary Care Unavailable Tickton LITERACY CONSULTANT, Pam Attending Unavailable Erasmo, Howard Chi Primary Care Unavailable Oleghe, Efewongbe Attending Unavailable Erasmo, Howard Chi Primary Care Unavailable Tickton LITERACY CONSULTANT, Pam Attending Unavailable Erasmo, Howard Chi Primary Care Unavailable Tickton LITERACY CONSULTANT, Pam Attending Unavailable Oleghe OLS, Efewongbe Attending Unavailabl e Erasmo, Howard Chi Primary Care Unavailable Tickton LITERACY CONSULTANT, Pam Attending Unavailable Erasmo, Howrad Chi Primary Care Unavailable Oleghe OLS, Efewongbe Attending Unavailabl e Erasmo, Howard Chi Primary Care Unavailable Erasmo, Howard Chi Primary Care Unavailable Oleghe, Efewongbe Attending Unavailable Erasmo, Howard Chi Primary Care Unavailable Tickton LITERACY CONSULTANT, Pam Attending Unavailable Erasmo, Howard Chi Primary Care Unavailable Oleghe, Efewongbe Attending Unavailable Tickton LITERACY CONSULTANT, Pam Attending Unavailable Erasmo, Howard Chi Primary Care Unavailable Erasmo, Howard Chi Primary Care Unavailable Oleghe, Efewongbe Attending Unavailable Tickton LITERACY CONSULTANT, Pam Attending Unavailable Erasmo, Howard Chi Primary Care Unavailable Erasmo, Howard Chi Primary Care Unavailable Tickton LITERACY CONSULTANT, Pam Attending Unavailable Erasmo, Howard Chi Primary Care Unavailable Tickton LITERACY CONSULTANT, Pam Attending Unavailable Erasmo, Howard Chi Primary Care Unavailable T[place]ton LITERACY CONSULTANT, Pam Attending Unavailable Erasmo, Howard Chi Primary Care Unavailable Ramone LITERACY CONSULTANT, Pam Attending Unavailable Erasmo, Howard Chi Primary Care Unavailable Odalis Saravia Attending Unavailable Erasmo, Howard Chi Primary Care Unavailable Joel Mccarthy Attending Unavailable OleOdalis Haddad Attending Unavailabl e Oleermiase Candice MERCERongbe Referring Unavailabl e Erasmo, Howard Chi Primary Care Unavailable Allergies Allergy Classification Reported Allergen(s) Allergy Type Date of Onset Reaction(s) Facility (2 sources) mold extract; Translations: [MOLD] Drug Allergy 1 [facility] Work Phone: [phone] (2 sources) potassium Drug Allergy 1 Rash [facility] Work Phone: [phone] (20 sources) traMADol; Translations: [TRAMADOL] Drug Allergy 7 Nausea Only, GI Upset [facility] Work Phone: [phone] Comment on above: upset stomach (2 sources) RAGWEED drug allergy 1 [facility] Work Phone: [phone] (6 sources) Penicillins; Translations: [PENICILLINS] Propensity to adverse reactions to drug 5 [place], [place] (2 sources) Penicillins Drug Allergy 5 [facility] Work Phone: [phone] (19 sources) environmental [Other] Propensity to adverse reactions 5 [facility] Work Phone: [phone] (20 sources) Penicillins Drug Allergy 5 [facility] Work Phone: (20 sources) Penicillins Allergy to substance 2 [facility] (1 source) OTHER; Translations: [OTHER] Propensity to adverse reactions (disorder) 5 [facility] Other Sp[place] Repository (18 sources) risperiDONE; Translations: [RISPERIDONE] Drug Allergy 4 Unknown [facility] Comment on above: Also becomes severel y confused and has slurred speech and hallucinations. (1 source) Penicillins Drug Allergy 5 [facility] Work Phone: (1 source) Penicillins Drug allergy (disorder) 4 [facility] Repository (1 source) risperiDONE Drug Allergy 4 [facility] Repository Medications Current Medications Medication [...] 5-500 M G TABS As needed HYDROCODONE-ACETAMINOPHEN [id number] Aleta Castellanos RN Start: 11-08-2011 End: 11-09-2011 LORTAB 5-500 MG TABS As need ed HYDROCODONE-ACETAMINOPHEN [id number] Bart Olivarez MD ALPRAZolam 0.25 mg disintegrating [...] TABS One tablet by mouth daily ASPIRIN [id number] Nurys Nettles Comment on above: Take 81 [...] Drug Class(es) Dates Sig (Normalized) Sig (Original) [id number] actuat albuterol 0.09 mg/actuat metered dose [...] One tablet by mouth daily ATORVASTATIN CALCIUM [id number] Michelle Hooper NP Comment on above: Take 40 mg by mouth once daily. B COMPLEX-C (4 sources) Start: 10-11-2012 take 1 tablet by mouth once daily VITAMIN B COMPLEX-C CAPS One tablet by mouth daily B COMPLEX-C [id number] Bart Olivarez MD Start: 10-11-2012 End: 04-08-2013 take 1 tablet by mouth once daily VITAMIN B COMPLEX-C CAPS One tablet by mouth daily B COMPLEX-C [id number] Julissa Da Silva PA-C calcium carbonate / vitamin D (4 sources) Start: 09-02-2010 End: 04-08-2013 take 1 tablet by mouth once daily CALCIUM CARBONATE-VITAMIN D 600-125 MG-UNIT TABS One tablet by mouth daily CALCIUM CARBONATE-VITAMIN D [id number] Julissa Da Silva PA-C Start: 09-02-2010 take 1 tablet by nasrin th once daily CALCIUM CARBONATE-VITAMIN D 600-125 MG-UNIT TABS One tablet by mouth daily CALCIUM CARBONATE-VITAMIN D [id number] Nurys Nettles carbidopa 25 mg / levodopa [...] tablet by mouth three times daily CARBIDOPA-LEVODOPA [id number] Julissa Da Silva PA-C Comment on above: [...] One tablet by mouth daily GLUCOSAMINE-CHONDROITIN CAPS [id number] Julissa Da Silva PA-C Start: 09-02-2010 take 1 tablet by [facility] once daily GLUCOSAMINE-CHONDROITIN CAPS One tablet by mouth daily GLUCOSAMINE-CHONDROITIN CAPS [id number] Nurys Nettles CINNAMON CAPS (4 sources) Non-Standardized Food Allergenic Extract Start: 11-23-2014 End: 06-25-2015 take 2 tablets by mouth once daily CINNAMON CAPS Two tablets by mouth daily CINNAMON CAPS [id number] Julissa Da Silva PA-C Start: 11-23-2014 take [address] [facility] once daily CINNAMON CAPS Two tablets by mouth daily CINNAMON CAPS [id number] Bart Olivarez MD 50 ml clindamycin 12 [...] One tablet by mouth daily COENZYME Q10 [id number] Bart Olivarez MD dexamethasone sod phos-bupiv (TAP) [...] th once daily CARDIZEM CD 120 MG [id number] One tablet by mouth daily DILTIAZEM HCL COATED BEADS [id number] Brat Olivarez MD docusate sodium 50 mg / sennosides, residential 8.6 mg oral capsule (17 sources) Start: [...] MG /GM CREA Take as directed ESTRADIOL [id number] Bart Olivarez MD Start: 09-02-2010 VAGIFEM TABS 2 5mcg 1 per vagina Q HS ESTRADIOL TABS [id number] Nurys Nettles ezetimibe 10 mg oral tablet (6 sources) Dietary Cholesterol Absorption Inhibitor Start: 09-02-2010 End: 11-23-2014 take 1 tablet by mouth once daily ZETIA 10 MG TABS One tablet by mouth daily EZETIMIBE [id number] Bart Olivarez MD famotidine 40 mg oral [...] by mouth daily OMEGA-3 FATTY ACIDS CAPS [id number] Nurys Nettles furosemide 20 mg oral tablet [...] 27, 2018 3:36pm April 22, 2019 2:28pm [id number] CAPS (4 sources) Start: 04-08-2013 take 1 tablet by mouth once daily DEPLIN 15 CAPS One tablet by mouth daily [id number] CAPS [id number] Bart Olivarez MD Start: 04-08-2013 DEPLIN 15 CAPS [id number] CAPS [id number] Julissa Da Silva PA-C levomefolate (20 sources) [...] tablet by mouth daily As needed MELOXICAM [id number] Nurys Nettles 24 hr metoprolol succinate 25 [...] by mouth daily As needed MONTELUKAST SODIUM [id number] Julissa Da Silva PA-C MULTIPLE VITAMIN (4 sources) Start: 3 take 1 tablet by mouth once daily MULTIVITAMINS TABS One tablet by mouth daily MULTIPLE VITAMIN [id number] Bart Olivarez MD Start: 10-11-2012 End: 04-08-2013 take 1 tablet by mouth once daily MULTIVITAMINS TABS One tablet by mouth daily MULTIPLE VITAMIN [id number] Julissa Da Silva PA-C MULTIVITAMIN ORAL (20 sources) End: 04-21-2024 MULTIVITAMIN ORAL Take by [facility] once daily. 04/21/2024 Discontinued MULTIVITAMIN ORA L Take by mouth once daily. 0 Active Comment on above: Take by mouth once d aily. olopatadine 1 mg/ml ophthalmic solution (4 sources) Histamine-1 Receptor Inhibitor Start: 1 End: 2 PATANOL 0.1 % SOLN As needed OLOPATADINE HCL [id number] Bart Olivarez MD [employer]-3 Fatty Acids (Fish Oil Concentrate) 1,000 mg capsule (20 sources) Start: 8 End: 8 take 1 capsule by mouth once daily [employer]-3 Fatty Acids (Fish Oil Concentrate) 1,000 mg capsule Discontinued 1000 MG PO daily December 31, 2017 3:53pm May 27, 2018 2:53pm Start: 12-31-2017 End: 05-27-2018 take 1 capsule by mouth once daily [employer]-3 Fatty Acids (Fish Oil Concentrate) 1,000 mg capsule Discontinued 1000 mg PO daily December 31, 2017 12:00am May 27, 2018 2:53pm Start: 12-31-2017 End: 05-27-2018 take 1 capsule by mouth once daily [employer]-3 Fatty Acids (Fish Oil Concentrate) 1,000 mg capsule Discontinued 1000 MG PO daily December 30, 2017 11:00pm May 27, 2018 1:53pm Start: 12-31-2017 End: 05-27-2018 take 1 capsule by mouth once daily [employer]-3 Fatty Acids (Fish Oil Concentrate) 1,000 mg [...] 1 % SOLN PRN PREDNISOLONE SODIUM PHOSPHATE [id number] Bart Olivarez MD VIT-FE FUMARATE-FA TABS (2 sources) Start: 09-02-2010 take 1 tablet by mouth once daily TABS Multi 0.4mg One tablet by mouth daily VIT-FE FUMARATE-FA TABS [id number] Nurys Nettles psyllium 3400 mg powder for [...] CAPS One tablet by mouth daily CYANOCOBALAMIN [id number] Bart Olivarez MD End: 04-21-2024 take 1 [...] TABS Two tablets by mouth daily CHOLECALCIFEROL [id number] Bart Olivarez MD Start: 09-02-2010 End: 11-09-2011 take 1 tablet by mouth once daily VITAMIN D 1000 UNIT TABS One tablet by mouth daily CHOLECALCIFEROL [id number] Bart Olivarez MD WHEAT DEXTRIN (3 sources) Start: 11-23-2014 BENEFIBER POWD 1 tsp daily WHEAT DEXTRIN [id number] Bart Olivarez MD End: 2019 take 4 [...] teeth and jaw (2 sources) Other unsatisfactory sikhism of tooth; Translations: [Other specified disorders of [...] (2 sources) Long-term drug therapy; Translations: [Other manager terminal (current) drug therapy] Onset: 1 09-02-2010 Unclassified [...] (Unsp spec) [#/Vol] 7.06 10*3/uL High 0.83-4.51 [facility] Absolute neutrophil countOrd ered By: Odalis Saravia on 02-26-2025 Neutrophils (Bld) [#/Vol] 7.6 10*3/uL 2.0-7.7 [facility] Anion gap in Serum or Plasma Ordered By: Odalis Saravia on 02-26-2025 Anion gap [Moles/Vol] 11 mmol/L 5-15 [facility] Automated lymphocyte count a s percentage of total leukocytesOrdered By: Odalis Saravia on 02-26-2025 Lymphocytes/100 WBC Auto (Unsp spec) 37.5 % 19-41 [facility] BUN/creatinine ratioOrdered By: Marthalaila Zuleikacarlito on 02-26-2025 Urea nitrogen/Creatinine [Mass ratio] 31.2 mg/mg High 10-20 [facility] Basophil percentageOrdered B y: Odalis Saravia on 02-26-2025 Basophils/100 WBC (Bld) 2.9 % High 0-1 [facility] Carbon dioxide, total [Moles /volume] in Central venous bloodOrdered By: Ilabonniejeniffer Riccardoermiascarlito on 02-26-2025 CO2 [Moles/Vol] 24.0 mmol/L 21.0-32.0 [facility] Chloride assayOrdered By: Ila marcy Riccardoermiascarlito on 02-26-2025 Chloride [Moles/Vol] 103 mmol/L 98-108 [facility] Eosinophil percentageOrdered By: Odalis Saravia on 02-26-2025 Eosinophils/100 WBC (Bld) 8.5 % High 0-5 [facility] Erythrocyte distribution wid th ratioOrdered By: Odalis Riccardoermiascarlito on 02-26-2025 Erythrocyte distribution width (RBC) [Ratio] 13.3 % 11.6-14.6 [facility] Erythrocyte distribution wid th standard deviationOrdered By: bonniewilkes barrelaila Riccardomary on 02-26-2025 Erythrocyte distribution width (RBC) [Ratio] 47.5 fl High 35.1-43.9 [facility] Glomerular filtration rate ( GFR) estimation/1.73 sq m using serum, plasma, or whole bOrdered By: bonniejeniffer Riccardoermiascarlito on 02-26-2025 GFR/1.73 sq M.predicted among non-blacks MDRD (S/P/Bld) [Vol rate/Area] 52 mL/min/{1.73_m2} Low >60 [facility] Comment on above: mL/min/1.73m2 CKD-EP I Creatinine Equation (2020) Hematocrit Auto (Bld) [Volum e fraction]Ordered By: Ilamarcy Saravia on 02-26-2025 Hematocrit (Bld) [Volume fraction] 36.3 % Low 37-47 [facility] Hemoglobin measurementOrdere d By: Ilabonnielavonnelaila Saravia on 02-26-2025 Hemoglobin (Bld) [Mass/Vol] 11.9 g/dL Low 12.0-15.0 [facility] Immature granulocytes/100 WB C Auto (Bld)Ordered By: Odalis Saravia on 02-26-2025 Immature granulocytes/100 WBC (Bld) 0.400 % 0.0-0.9 [facility] Comment on above: IG% - Immature Granu locytes (promyelocytes, myelocytes and metamyelocytes) > 1% indicates that a LEFT SHIFT is Present. MCV (mean corpuscular volume ) determinationOrdered By: Odalis Saravia on 02-26-2025 MCV (RBC) [Entitic vol] 96.5 fL 81-99 [facility] Mean corpuscular hemoglobin (MCH) determinationOrdered By: Odalis Saravia on 02-26-2025 MCH (RBC) [Entitic mass] 31.6 pg 27.0-32.0 [facility] Mean corpuscular hemoglobin concentration (MCHC) determinationOrdered By: Odalis Saravia on 02-26-2025 MCHC (RBC) [Mass/Vol] 32.8 g/dL 32-36 [facility] Mean platelet volume determi nationOrdered By: Odalis Saravia on 02-26-2025 Platelet mean volume (Bld) [Entitic vol] 10.4 fL 6.2-12.0 [facility] Monocyte percentageOrdered B y: Odalis Saravia on 02-26-2025 Monocytes/100 WBC (Bld) 10.4 % High 0-10 [facility] Neutrophil percentageOrdered By: Odalis Saravia on 02-26-2025 Neutrophils/100 WBC (Bld) 40.3 % Low 47-70 [facility] Nucleated red blood cell per centageOrdered By: Odalis Saravia on 02-26-2025 Nucleated RBC/100 WBC (Bld) [Ratio] 0 % 0-5 [facility] Platelet countOrdered By: Ila Saravia on 02-26-2025 Platelets (Bld) [#/Vol] 330 10*3/uL 150-450 [facility] Platelet estimateOrdered By: Odalis Saravia on 02-26-2025 Platelets LM Ql (Bld) ADEQUATE ADEQ [facility] Potassium measurement (mass/ volume)Ordered By: Odalis Saravia on 02-26-2025 Potassium (Unsp spec) [Mass/Vol] 4.4 mmol/L 3.3-5.1 [facility] Comment on above: Hemolysis present, R esults could be affected. RBC Auto (Bld) [#/Vol]Ordere d By: Odalis Saravia on 02-26-2025 RBC (Bld) [#/Vol] 3.76 10*6/uL Low 4.2-5.4 [facility] Serum creatinine measurement (mass/volume)Ordered By: Odalis Saravia on 02-26-2025 Creatinine [Mass/Vol] 1.03 mg/dL 0.70-1.20 [facility] Serum glucose measurement (m ass/volume)Ordered By: Odalis Saravia on 02-26-2025 Glucose [Mass/Vol] 85 mg/dL 70-99 [facility] Serum or plasma calcium fran urement (mass/volume)Ordered By: Odalis Saravia on 02-26-2025 Calcium [Mass/Vol] 9.2 mg/dL 7.6-11.0 [facility] Serum or plasma urea nitroge n measurement (mass/volume)Ordered By: Odalis Saravia on 02-26-2025 Urea nitrogen [Mass/Vol] 32 mg/dL High 4-19 [facility] Sodium levelOrdered By: Candice de los santosricardo Manjit on 02-26-2025 Sodium [Moles/Vol] 137 mmol/L 133-145 [facility] White blood cell (WBC) count Ordered By: Odalis Saravia on 02-26-2025 WBC (Bld) [#/Vol] 18.8 10*3/uL High 4.4-11.0 [facility] Absolute lymphocyte countOrd ered By: Odalis Saravia on 01-29-2025 Lymphocytes Auto (Unsp spec) [#/Vol] 7.08 10*3/uL High 0.83-4.51 [facility] Absolute neutrophil countOrd ered By: Odalis Saravia on 01-29-2025 Neutrophils (Bld) [#/Vol] 3.8 10*3/uL 2.0-7.7 [facility] Anion gap in Serum or Plasma Ordered By: Odalis Saravia on 01-29-2025 Anion gap [Moles/Vol] 12 mmol/L 5-15 [facility] Automated lymphocyte count a s percentage of total leukocytesOrdered By: Odalis Saravia on 01-29-2025 Lymphocytes/100 WBC Auto (Unsp spec) 50.6 % High 19-41 [facility] BUN/creatinine ratioOrdered By: Odalis Saravia on 01-29-2025 Urea nitrogen/Creatinine [Mass ratio] 27.0 mg/mg High 10-20 [facility] Basophil percentageOrdered B y: Odalis Saravia on 01-29-2025 Basophils/100 WBC (Bld) 3.6 % High 0-1 [facility] Bilirubin directOrdered By: Odalis Saravia on 01-29-2025 Bilirubin.direct [Mass/Vol] 0.13 mg/dL 0.00-0.30 [facility] Bilirubin, totalOrdered By: Odalis Saravia on 01-29-2025 Bilirubin [Mass/Vol] 0.29 mg/dL 0.00-1.30 [facility] Blood manual differential co mment interpretation (narrative result)Ordered By: Odalis Saravia on 01-29-2025 Manual differential comment Porter (Bld) [Interp] SCANNED [facility] Comment on above: LYMPHOCYTOSIS NOTED Carbon dioxide, total [Moles /volume] in Central venous bloodOrdered By: Odalis Saravia on 01-29-2025 CO2 [Moles/Vol] 23.9 mmol/L 21.0-32.0 [facility] Chloride assayOrdered By: Ila Saravia on 01-29-2025 Chloride [Moles/Vol] 102 mmol/L 98-108 [facility] Eosinophil percentageOrdered By: Odalis Saravia on 01-29-2025 Eosinophils/100 WBC (Bld) 7.9 % High 0-5 [facility] Erythrocyte distribution wid th ratioOrdered By: Odalis Saravia on 01-29-2025 Erythrocyte distribution width (RBC) [Ratio] 13.4 % 11.6-14.6 [facility] Erythrocyte distribution wid th standard deviationOrdered By: Odalis Saravia on 01-29-2025 Erythrocyte distribution width (RBC) [Ratio] 47.9 fl High 35.1-43.9 [facility] Glomerular filtration rate ( GFR) estimation/1.73 sq m using serum, plasma, or whole bOrdered By: Odalis Saravia on 01-29-2025 GFR/1.73 sq M.predicted among non-blacks MDRD (S/P/Bld) [Vol rate/Area] 53 mL/min/{1.73_m2} Low >60 [facility] Comment on above: mL/min/1.73m2 CKD-EP I Creatinine Equation (2020) Hematocrit Auto (Bld) [Volum e fraction]Ordered By: Odalis Saravia 01-29-2025 Hematocrit (Bld) [Volume fraction] 34.8 % Low 37-47 [facility] Hemoglobin measurementOrdere d By: Odalis Saravia on 01-29-2025 Hemoglobin (Bld) [Mass/Vol] 11.6 g/dL Low 12.0-15.0 [facility] Immature granulocytes/100 WB C Auto (Bld)Ordered By: Odalis Saravia 01-29-2025 Immature granulocytes/100 WBC (Bld) 0.200 % 0.0-0.9 [facility] Comment on above: IG% - Immature Granu locytes (promyelocytes, myelocytes and metamyelocytes) > 1% indicates that a LEFT SHIFT is Present. Laboratory - Chemistry and C hemistry - challengeOrdered By: Odalis Saravia 01-29-2025 AST [Catalytic activity/Vol] 32 U/L <32 [facility] MCV (mean corpuscular volume ) determinationOrdered By: Odalis Saravia 01-29-2025 MCV (RBC) [Entitic vol] 96.4 fL 81-99 [facility] Mean corpuscular hemoglobin (MCH) determinationOrdered By: Odalis Saravia 5 MCH (RBC) [Entitic mass] 32.1 pg High 27.0-32.0 [facility] Mean corpuscular hemoglobin concentration (MCHC) determinationOrdered By: Odalis Saravia on 01-29-2025 MCHC (RBC) [Mass/Vol] 33.3 g/dL 32-36 [facility] Mean platelet volume determi nationOrdered By: Odalis Saravia on 01-29-2025 Platelet mean volume (Bld) [Entitic vol] 10.1 fL 6.2-12.0 [facility] Monocyte percentageOrdered B y: Odalis Saravia on 01-29-2025 Monocytes/100 WBC (Bld) 10.4 % High 0-10 [facility] Neutrophil percentageOrdered By: Candicewilkes barrelaila Saravia on 01-29-2025 Neutrophils/100 WBC (Bld) 27.3 % Low 47-70 [facility] Nucleated red blood cell per centageOrdered By: Odalis Saravia on 01-29-2025 Nucleated RBC/100 WBC (Bld) [Ratio] 0 % 0-5 [facility] Platelet countOrdered By: Ila Saravia on 01-29-2025 Platelets (Bld) [#/Vol] 365 10*3/uL 150-450 [facility] Potassium measurement (mass/ volume)Ordered By: Marthalaila Guermiascarlito on 01-29-2025 Potassium (Unsp spec) [Mass/Vol] 4.4 mmol/L 3.3-5.1 [facility] RBC Auto (Bld) [#/Vol]Ordere d By: Odalis Tocarlito on 01-29-2025 RBC (Bld) [#/Vol] 3.61 10*6/uL Low 4.2-5.4 [facility] Review by pathologistOrdered By: Ilabonnielavonnelaila Saravia on 01-29-2025 Pathologist review Porter (Unsp spec) [Interp] Heide mckenna [facility] Pathologist review Porter (Unsp spec) [Interp] Reviewed [facility] Comment on above: Previous reported re sult: Heide mckenna Edited by: IVAN on 02/05/25:1555 AMENDED REPORT 02/05/25 1555 PATH REV previously reported as: October Serum creatinine measurement (mass/volume)Ordered By: Odalis Saravia on 01-29-2025 Creatinine [Mass/Vol] 1.02 mg/dL 0.70-1.20 [facility] Serum globulin measurementOr dered By: Odalis Saravia on 01-29-2025 Globulin (S) [Mass/Vol] 2.7 g/dL 2.2-4.2 [facility] Serum glucose measurement (m ass/volume)Ordered By: Odalis Saravia on 01-29-2025 Glucose [Mass/Vol] 83 mg/dL 70-99 [facility] Serum or plasma alanine ga otransferase (ALT) measurementOrdered By: Odalis Saravia on 01-29-2025 ALT [Catalytic activity/Vol] 13 U/L <35 [facility] Serum or plasma albumin fran urement (mass/volume)Ordered By: Odalis Saravia on 01-29-2025 Albumin [Mass/Vol] 3.9 g/dL 3.4-4.8 [facility] Serum or plasma alkaline karthik sphatase measurementOrdered By: Odalis Saravia on 01-29-2025 ALP [Catalytic activity/Vol] 166 U/L High 35-104 [facility] Serum or plasma calcium fran urement (mass/volume)Ordered By: Odalis Saravia on 01-29-2025 Calcium [Mass/Vol] 9.4 mg/dL 7.6-11.0 [facility] Serum or plasma urea nitroge n measurement (mass/volume)Ordered By: Odalis Saravia on 01-29-2025 Urea nitrogen [Mass/Vol] 28 mg/dL High 4-19 [facility] Sodium levelOrdered By: Candice Saravia on 01-29-2025 Sodium [Moles/Vol] 138 mmol/L 133-145 [facility] Total proteinOrdered By: Curtis Saravia on 01-29-2025 Protein [Mass/Vol] 6.5 g/dL 5.9-8.4 [facility] Vitamin B12 ser/plasOrdered By: Odalis Saravia on 01-29-2025 Cobalamin (Vitamin B12) [Mass/Vol] 1118 pg/mL High 180-914 [facility] White blood cell (WBC) count Ordered By: Odalis Saravia on 01-29-2025 WBC (Bld) [#/Vol] 14.0 10*3/uL High 4.4-11.0 [facility] Absolute lymphocyte countOrd ered By: Odalis Saravia on 01-02-2025 Lymphocytes Auto (Unsp spec) [#/Vol] 7.51 10*3/uL High 0.83-4.51 [facility] Absolute neutrophil countOrd ered By: Odalis Saravia on 01-02-2025 Neutrophils (Bld) [#/Vol] 4.6 10*3/uL 2.0-7.7 [facility] Anion gap in Serum or Plasma Ordered By: Odalis aSravia on 01-02-2025 Anion gap [Moles/Vol] 12 mmol/L 5-15 [facility] Automated lymphocyte count a s percentage of total leukocytesOrdered By: Odalis Saravia on 01-02-2025 Lymphocytes/100 WBC Auto (Unsp spec) 48.3 % High 19-41 [facility] BUN/creatinine ratioOrdered By: Odalis Saravia on 01-02-2025 Urea nitrogen/Creatinine [Mass ratio] 23.5 mg/mg High 10-20 [facility] Basophil percentageOrdered B y: Odalis Saravia on 01-02-2025 Basophils/100 WBC (Bld) 3.5 % High 0-1 [facility] Blood manual differential co mment interpretation (narrative result)Ordered By: Odalis Saravia on 01-02-2025 Manual differential comment Porter (Bld) [Interp] COMMENT [facility] Comment on above: LYMPHOCYTOSIS.BASOPH SRIDEVI. Carbon dioxide, total [Moles /volume] in Central venous bloodOrdered By: Odalis Saravia on 01-02-2025 CO2 [Moles/Vol] 22.6 mmol/L 21.0-32.0 [facility] Chloride assayOrdered By: Ila Saravia on 01-02-2025 Chloride [Moles/Vol] 101 mmol/L 98-108 [facility] Eosinophil percentageOrdered By: Odalis Saravia on 01-02-2025 Eosinophils/100 WBC (Bld) 10.2 % High 0-5 [facility] Erythrocyte distribution wid th ratioOrdered By: Odalis Saravia on 01-02-2025 Erythrocyte distribution width (RBC) [Ratio] 13.3 % 11.6-14.6 [facility] Erythrocyte distribution wid th standard deviationOrdered By: Odalis Saravia on 01-02-2025 Erythrocyte distribution width (RBC) [Ratio] 46.4 fl High 35.1-43.9 [facility] Glomerular filtration rate ( GFR) estimation/1.73 sq m using serum, plasma, or whole bOrdered By: Odalis Saravia on 01-02-2025 GFR/1.73 sq M.predicted among non-blacks MDRD (S/P/Bld) [Vol rate/Area] 46 mL/min/{1.73_m2} Low >60 [facility] Comment on above: mL/min/1.73m2 CKD-EP I Creatinine Equation (2020) Hematocrit Auto (Bld) [Volum e fraction]Ordered By: Odalis Saravia on 01-02-2025 Hematocrit (Bld) [Volume fraction] 33.7 % Low 37-47 [facility] Hemoglobin measurementOrdere d By: Odalis Saravia 01-02-2025 Hemoglobin (Bld) [Mass/Vol] 11.3 g/dL Low 12.0-15.0 [facility] Immature granulocytes/100 WB C Auto (Bld)Ordered By: Odalis Saravia 01-02-2025 Immature granulocytes/100 WBC (Bld) 0.200 % 0.0-0.9 [facility] Comment on above: IG% - Immature Granu locytes (promyelocytes, myelocytes and metamyelocytes) > 1% indicates that a LEFT SHIFT is Present. MCV (mean corpuscular volume ) determinationOrdered By: Odalis Saravia on 01-02-2025 MCV (RBC) [Entitic vol] 94.7 fL 81-99 [facility] Mean corpuscular hemoglobin (MCH) determinationOrdered By: Odalis Saravia on 01-02-2025 MCH (RBC) [Entitic mass] 31.7 pg 27.0-32.0 [facility] Mean corpuscular hemoglobin concentration (MCHC) determinationOrdered By: Odalis Saravia on 01-02-2025 MCHC (RBC) [Mass/Vol] 33.5 g/dL 32-36 [facility] Mean platelet volume determi nationOrdered By: Odalis Saravia on 01-02-2025 Platelet mean volume (Bld) [Entitic vol] 10.3 fL 6.2-12.0 [facility] Monocyte percentageOrdered B y: Odalis Saravia on 01-02-2025 Monocytes/100 WBC (Bld) 8.1 % 0-10 [facility] Neutrophil percentageOrdered By: Odalis Saravia on 01-02-2025 Neutrophils/100 WBC (Bld) 29.7 % Low 47-70 [facility] Nucleated red blood cell per centageOrdered By: Odalis Saravia on 01-02-2025 Nucleated RBC/100 WBC (Bld) [Ratio] 0 % 0-5 [facility] Platelet countOrdered By: Ila bonniejeniffer Saravia on 01-02-2025 Platelets (Bld) [#/Vol] 372 10*3/uL 150-450 [facility] Potassium measurement (mass/ volume)Ordered By: Odalis Saravia on 01-02-2025 Potassium (Unsp spec) [Mass/Vol] 4.3 mmol/L 3.3-5.1 [facility] RBC Auto (Bld) [#/Vol]Ordere d By: Odalis Saravia on 01-02-2025 RBC (Bld) [#/Vol] 3.56 10*6/uL Low 4.2-5.4 [facility] Serum creatinine measurement (mass/volume)Ordered By: Odalis Saravia on 01-02-2025 Creatinine [Mass/Vol] 1.15 mg/dL 0.70-1.20 [facility] Serum glucose measurement (m ass/volume)Ordered By: Odalis Saravia on 01-02-2025 Glucose [Mass/Vol] 87 mg/dL 70-99 [facility] Serum or plasma calcium fran urement (mass/volume)Ordered By: Odalis Saravia on 01-02-2025 Calcium [Mass/Vol] 9.4 mg/dL 7.6-11.0 [facility] Serum or plasma urea nitroge n measurement (mass/volume)Ordered By: Odalis Saravia on 01-02-2025 Urea nitrogen [Mass/Vol] 27 mg/dL High 4-19 [facility] Sodium levelOrdered By: Candice jeniffer Manjit on 01-02-2025 Sodium [Moles/Vol] 136 mmol/L 133-145 [facility] White blood cell (WBC) count Ordered By: Odalis Saravia on 01-02-2025 WBC (Bld) [#/Vol] 15.6 10*3/uL High 4.4-11.0 [facility] Absolute lymphocyte countOrd ered By: Odalis Saravia on 12-25-2024 Lymphocytes Auto (Unsp spec) [#/Vol] 6.32 10*3/uL High 0.83-4.51 [facility] Absolute neutrophil countOrd ered By: Odalis Saravia on 12-25-2024 Neutrophils (Bld) [#/Vol] 4.7 10*3/uL 2.0-7.7 [facility] Anion gap in Serum or Plasma Ordered By: Odalis Saravia on 12-25-2024 Anion gap [Moles/Vol] 10 mmol/L 5-15 [facility] Automated lymphocyte count a s percentage of total leukocytesOrdered By: Odalis Saravia on 12-25-2024 Lymphocytes/100 WBC Auto (Unsp spec) 45.0 % High 19-41 [facility] BUN/creatinine ratioOrdered By: Odalis Saravia on 12-25-2024 Urea nitrogen/Creatinine [Mass ratio] 30.3 mg/mg High 10-20 [facility] Basophil percentageOrdered B y: Odalis Saravia on 12-25-2024 Basophils/100 WBC (Bld) 3.1 % High 0-1 [facility] Blood manual differential co mment interpretation (narrative result)Ordered By: Odalis Saravia on 12-25-2024 Manual differential comment Porter (Bld) [Interp] SCANNED [facility] Comment on above: LYMPHOCYTOSIS NOTED Carbon dioxide, total [Moles /volume] in Central venous bloodOrdered By: Odalis Saravia on 12-25-2024 CO2 [Moles/Vol] 26.3 mmol/L 21.0-32.0 [facility] Chloride assayOrdered By: Ila bonniejeniffer Saravia on 12-25-2024 Chloride [Moles/Vol] 102 mmol/L 98-108 [facility] Eosinophil percentageOrdered By: Odalis Saravia on 12-25-2024 Eosinophils/100 WBC (Bld) 9.5 % High 0-5 [facility] Erythrocyte distribution wid th ratioOrdered By: Odalis Saravia on 12-25-2024 Erythrocyte distribution width (RBC) [Ratio] 13.4 % 11.6-14.6 [facility] Erythrocyte distribution wid th standard deviationOrdered By: Ilabonnielavonnelaila Saravia on 12-25-2024 Erythrocyte distribution width (RBC) [Ratio] 47.7 fl High 35.1-43.9 [facility] Glomerular filtration rate ( GFR) estimation/1.73 sq m using serum, plasma, or whole bOrdered By: Odalis Saravia on 12-25-2024 GFR/1.73 sq M.predicted among non-blacks MDRD (S/P/Bld) [Vol rate/Area] 57 mL/min/{1.73_m2} Low >60 [facility] Comment on above: mL/min/1.73m2 CKD-EP I Creatinine Equation (2020) Hematocrit Auto (Bld) [Volum e fraction]Ordered By: Odalis Saravia on 12-25-2024 Hematocrit (Bld) [Volume fraction] 35.7 % Low 37-47 [facility] Hemoglobin measurementOrdere d By: Odalis Saravia on 12-25-2024 Hemoglobin (Bld) [Mass/Vol] 11.7 g/dL Low 12.0-15.0 [facility] Immature granulocytes/100 WB C Auto (Bld)Ordered By: Odalis Saravia on 12-25-2024 Immature granulocytes/100 WBC (Bld) 0.300 % 0.0-0.9 [facility] Comment on above: IG% - Immature Granu locytes (promyelocytes, myelocytes and metamyelocytes) > 1% indicates that a LEFT SHIFT is Present. MCV (mean corpuscular volume ) determinationOrdered By: Odalis Saravia on 12-25-2024 MCV (RBC) [Entitic vol] 98.3 fL 81-99 [facility] Mean corpuscular hemoglobin (MCH) determinationOrdered By: Odalis Saravia on 12-25-2024 MCH (RBC) [Entitic mass] 32.2 pg High 27.0-32.0 [facility] Mean corpuscular hemoglobin concentration (MCHC) determinationOrdered By: Odalis Saravia on 12-25-2024 MCHC (RBC) [Mass/Vol] 32.8 g/dL 32-36 [facility] Mean platelet volume determi nationOrdered By: Odalis Saravia on 12-25-2024 Platelet mean volume (Bld) [Entitic vol] 10.0 fL 6.2-12.0 [facility] Monocyte percentageOrdered B y: Odalis Saravia on 12-25-2024 Monocytes/100 WBC (Bld) 9.0 % 0-10 [facility] Neutrophil percentageOrdered By: Odalis Saravia on 12-25-2024 Neutrophils/100 WBC (Bld) 33.1 % Low 47-70 [facility] Nucleated red blood cell per centageOrdered By: Odalis Saravia on 12-25-2024 Nucleated RBC/100 WBC (Bld) [Ratio] 0 % 0-5 [facility] Platelet countOrdered By: Ila Saravia on 12-25-2024 Platelets (Bld) [#/Vol] 381 10*3/uL 150-450 [facility] Potassium measurement (mass/ volume)Ordered By: Odalis Saravia on 12-25-2024 Potassium (Unsp spec) [Mass/Vol] 4.6 mmol/L 3.3-5.1 [facility] RBC Auto (Bld) [#/Vol]Ordere d By: Odalis Saravia on 12-25-2024 RBC (Bld) [#/Vol] 3.63 10*6/uL Low 4.2-5.4 [facility] Review by pathologistOrdered By: Odalis Saravia on 12-25-2024 Pathologist review Porter (Unsp spec) [Interp] Heide mckenna [facility] Pathologist review Porter (Unsp spec) [Interp] Reviewed [facility] Comment on above: Previous reported re sult: Heide mckenna Edited by: IVAN on 01/07/25:1019SEE REPORT IN PATIENT'S EMR AMENDED REPORT 01/07/25 1019 PATH REV previously reported as: Heide mckenna Serum creatinine measurement (mass/volume)Ordered By: Odalis Saravia on 12-25-2024 Creatinine [Mass/Vol] 0.95 mg/dL 0.70-1.20 [facility] Serum glucose measurement (m ass/volume)Ordered By: Odalis Saravia on 12-25-2024 Glucose [Mass/Vol] 77 mg/dL 70-99 [facility] Serum or plasma calcium fran urement (mass/volume)Ordered By: Odalis Saravia on 12-25-2024 Calcium [Mass/Vol] 9.5 mg/dL 7.6-11.0 [facility] Serum or plasma urea nitroge n measurement (mass/volume)Ordered By: Odalis Saravia on 12-25-2024 Urea nitrogen [Mass/Vol] 29 mg/dL High 4-19 [facility] Sodium levelOrdered By: Candice Saravia on 12-25-2024 Sodium [Moles/Vol] 138 mmol/L 133-145 [facility] White blood cell (WBC) count Ordered By: Odalis Saravia on 12-25-2024 WBC (Bld) [#/Vol] 14.1 10*3/uL High 4.4-11.0 [facility] Absolute lymphocyte countOrd ered By: Odalis Saravia on 11-27-2024 Lymphocytes Auto (Unsp spec) [#/Vol] 6.85 10*3/uL High 0.83-4.51 [facility] Absolute neutrophil countOrd ered By: Odalis Guermiascarlito on 11-27-2024 Neutrophils (Bld) [#/Vol] 6.9 10*3/uL 2.0-7.7 [facility] Anion gap in Serum or Plasma Ordered By: Odalis Saravia on 11-27-2024 Anion gap [Moles/Vol] 12 mmol/L 5-15 [facility] Automated lymphocyte count a s percentage of total leukocytesOrdered By: Odalis Saravia on 11-27-2024 Lymphocytes/100 WBC Auto (Unsp spec) 42.1 % High 19-41 [facility] BUN/creatinine ratioOrdered By: Odalis Saravia on 11-27-2024 Urea nitrogen/Creatinine [Mass ratio] 28.1 mg/mg High 10-20 [facility] Basophil percentageOrdered B y: Odalis Saravia on 11-27-2024 Basophils/100 WBC (Bld) 2.6 % High 0-1 [facility] Blood manual differential co mment interpretation (narrative result)Ordered By: Odalis Saravia on 11-27-2024 Manual differential comment Porter (Bld) [Interp] COMMENT [facility] Comment on above: LYMPHOCYTOSIS. Carbon dioxide, total [Moles /volume] in Central venous bloodOrdered By: Odalis Saravia on 11-27-2024 CO2 [Moles/Vol] 23.6 mmol/L 21.0-32.0 [facility] Chloride assayOrdered By: Ila Saravia on 11-27-2024 Chloride [Moles/Vol] 102 mmol/L 98-108 [facility] Eosinophil percentageOrdered By: Odalis Saravia on 11-27-2024 Eosinophils/100 WBC (Bld) 3.8 % 0-5 [facility] Erythrocyte distribution wid th ratioOrdered By: Odalis Saravia on 11-27-2024 Erythrocyte distribution width (RBC) [Ratio] 12.9 % 11.6-14.6 [facility] Erythrocyte distribution wid th standard deviationOrdered By: Odalis Saravia on 11-27-2024 Erythrocyte distribution width (RBC) [Ratio] 45.9 fl High 35.1-43.9 [facility] Glomerular filtration rate ( GFR) estimation/1.73 sq m using serum, plasma, or whole bOrdered By: Odalis Saravia on 11-27-2024 GFR/1.73 sq M.predicted among non-blacks MDRD (S/P/Bld) [Vol rate/Area] 51 mL/min/{1.73_m2} Low >60 [facility] Comment on above: mL/min/1.73m2 CKD-EP I Creatinine Equation (2020) Hematocrit Auto (Bld) [Volum e fraction]Ordered By: Odalis Saravia on 11-27-2024 Hematocrit (Bld) [Volume fraction] 33.1 % Low 37-47 [facility] Hemoglobin measurementOrdere d By: Odalis Saravia on 11-27-2024 Hemoglobin (Bld) [Mass/Vol] 11.0 g/dL Low 12.0-15.0 [facility] Immature granulocytes/100 WB C Auto (Bld)Ordered By: Odalis Saravia on 11-27-2024 Immature granulocytes/100 WBC (Bld) 0.500 % 0.0-0.9 [facility] Comment on above: IG% - Immature Granu locytes (promyelocytes, myelocytes and metamyelocytes) > 1% indicates that a LEFT SHIFT is Present. MCV (mean corpuscular volume ) determinationOrdered By: Odalis Saravia on 11-27-2024 MCV (RBC) [Entitic vol] 96.8 fL 81-99 [facility] Mean corpuscular hemoglobin (MCH) determinationOrdered By: Odalis Saravia 11-27-2024 MCH (RBC) [Entitic mass] 32.2 pg High 27.0-32.0 [facility] Mean corpuscular hemoglobin concentration (MCHC) determinationOrdered By: Odalis Saravia 11-27-2024 MCHC (RBC) [Mass/Vol] 33.2 g/dL 32-36 [facility] Mean platelet volume determi nationOrdered By: Ilabonnielavonnelaila Guermiascarlito on 11-27-2024 Platelet mean volume (Bld) [Entitic vol] 9.2 fL 6.2-12.0 [facility] Monocyte percentageOrdered B y: Ilabonnielavonnelaila Guermiascarlito on 11-27-2024 Monocytes/100 WBC (Bld) 8.8 % 0-10 [facility] Neutrophil percentageOrdered By: Ilabonnielavonnelaila Guermiascarlito on 11-27-2024 Neutrophils/100 WBC (Bld) 42.2 % Low 47-70 [facility] Nucleated red blood cell per centageOrdered By: Ilabonnielavonnelaila Guermiascarlito on 11-27-2024 Nucleated RBC/100 WBC (Bld) [Ratio] 0 % 0-5 [facility] Platelet countOrdered By: Ila marcy Riccardoermiascarlito on 11-27-2024 Platelets (Bld) [#/Vol] 571 10*3/uL High 150-450 [facility] Potassium measurement (mass/ volume)Ordered By: Odalis Saravia on 11-27-2024 Potassium (Unsp spec) [Mass/Vol] 4.5 mmol/L 3.3-5.1 [facility] RBC Auto (Bld) [#/Vol]Ordere d By: Candicelavonnelaila Guermiascarlito on 11-27-2024 RBC (Bld) [#/Vol] 3.42 10*6/uL Low 4.2-5.4 [facility] Serum creatinine measurement (mass/volume)Ordered By: Odalis Saravia on 11-27-2024 Creatinine [Mass/Vol] 1.05 mg/dL 0.70-1.20 [facility] Serum glucose measurement (m ass/volume)Ordered By: Odalis Saravia on 11-27-2024 Glucose [Mass/Vol] 88 mg/dL 70-99 [facility] Serum or plasma calcium fran urement (mass/volume)Ordered By: Odalis Saravia on 11-27-2024 Calcium [Mass/Vol] 9.4 mg/dL 7.6-11.0 [facility] Serum or plasma urea nitroge n measurement (mass/volume)Ordered By: Odalis Saravia on 11-27-2024 Urea nitrogen [Mass/Vol] 30 mg/dL High 4-19 [facility] Sodium levelOrdered By: Ilabonnie swift Manjit on 11-27-2024 Sodium [Moles/Vol] 138 mmol/L 133-145 [facility] White blood cell (WBC) count Ordered By: Odalis Saravia on 11-27-2024 WBC (Bld) [#/Vol] 16.3 10*3/uL High 4.4-11.0 [facility] Urine Legionella pneumophila antigen detectionOrdered By: Odalis Saravia on 11-26-2024 L. pneumophila Ag Ql (U) [facility] Absolute lymphocyte countOrd ered By: Odalis Saravia on 10-23-2024 Lymphocytes Auto (Unsp spec) [#/Vol] 6.66 10*3/uL High 0.83-4.51 [facility] Absolute neutrophil countOrd ered By: Odalis Saravia on 10-23-2024 Neutrophils (Bld) [#/Vol] 3.5 10*3/uL 2.0-7.7 [facility] Anion gap in Serum or Plasma Ordered By: Odalis Saravia on 10-23-2024 Anion gap [Moles/Vol] 10 mmol/L 5-15 [facility] Automated lymphocyte count a s percentage of total leukocytesOrdered By: Odalis Saravia on 10-23-2024 Lymphocytes/100 WBC Auto (Unsp spec) 46.7 % High 19-41 [facility] BUN/creatinine ratioOrdered By: Odalis Saravia on 10-23-2024 Urea nitrogen/Creatinine [Mass ratio] 33.7 mg/mg High 10-20 [facility] Basophil percentageOrdered B y: Odalis Saravia on 10-23-2024 Basophils/100 WBC (Bld) 3.1 % High 0-1 [facility] Bilirubin directOrdered By: Odalis Saravia on 10-23-2024 Bilirubin.direct [Mass/Vol] 0.14 mg/dL 0.00-0.30 [facility] Bilirubin, totalOrdered By: Odalis Saravia on 10-23-2024 Bilirubin [Mass/Vol] 0.35 mg/dL 0.00-1.30 [facility] Calculated very low density lipoprotein (VLDL) cholesterol measurementOrdered By: Odalis Saravia on 10-23-2024 Calculated very low density lipoprotein (VLDL) cholesterol measurement 25 mg/dL 5-40 [facility] Carbon dioxide, total [Moles /volume] in Central venous bloodOrdered By: Odalis Saravia on 10-23-2024 CO2 [Moles/Vol] 24.0 mmol/L 21.0-32.0 [facility] Chloride assayOrdered By: Ila Saravia on 10-23-2024 Chloride [Moles/Vol] 103 mmol/L 98-108 [facility] Eosinophil percentageOrdered By: Odalis Saravia on 10-23-2024 Eosinophils/100 WBC (Bld) 14.9 % High 0-5 [facility] Erythrocyte distribution wid th ratioOrdered By: Odalis Saravia on 10-23-2024 Erythrocyte distribution width (RBC) [Ratio] 13.1 % 11.6-14.6 [facility] Erythrocyte distribution wid th standard deviationOrdered By: Odalis Saravia on 10-23-2024 Erythrocyte distribution width (RBC) [Ratio] 47.2 fl High 35.1-43.9 [facility] Glomerular filtration rate ( GFR) estimation/1.73 sq m using serum, plasma, or whole bOrdered By: Odalis Saravia on 10-23-2024 GFR/1.73 sq M.predicted among non-blacks MDRD (S/P/Bld) [Vol rate/Area] 56 mL/min/{1.73_m2} Low >60 [facility] Comment on above: mL/min/1.73m2 CKD-EP I Creatinine Equation (2020) Hematocrit Auto (Bld) [Volum e fraction]Ordered By: Odalis Saravia on 10-23-2024 Hematocrit (Bld) [Volume fraction] 35.2 % Low 37-47 [facility] Hemoglobin measurementOrdere d By: Odalis Saravia on 10-23-2024 Hemoglobin (Bld) [Mass/Vol] 11.6 g/dL Low 12.0-15.0 [facility] Immature granulocytes/100 WB C Auto (Bld)Ordered By: Odalis Saravia on 10-23-2024 Immature granulocytes/100 WBC (Bld) 0.200 % 0.0-0.9 [facility] Comment on above: IG% - Immature Granu locytes (promyelocytes, myelocytes and metamyelocytes) > 1% indicates that a LEFT SHIFT is Present. LDL calc ser/plasOrdered By: Odalis Saravia on 10-23-2024 Cholesterol in LDL [Mass/Vol] 123 mg/dL [facility] Comment on above: Sxjkiqteso=925-759 m g/dL & Higher Pgau=056 mg/dL or greater Laboratory - Chemistry and C hemistry - challengeOrdered By: Odalis Saravia on 10-23-2024 AST [Catalytic activity/Vol] 44 U/L High <32 [facility] MCV (mean corpuscular volume ) determinationOrdered By: Odalis Saravia on 10-23-2024 MCV (RBC) [Entitic vol] 97.5 fL 81-99 [facility] Mean corpuscular hemoglobin (MCH) determinationOrdered By: Odalis Saravia on 10-23-2024 MCH (RBC) [Entitic mass] 32.1 pg High 27.0-32.0 [facility] Mean corpuscular hemoglobin concentration (MCHC) determinationOrdered By: Odalis Saravia on 10-23-2024 MCHC (RBC) [Mass/Vol] 33.0 g/dL 32-36 [facility] Mean platelet volume determi nationOrdered By: Odalis Saravia on 10-23-2024 Platelet mean volume (Bld) [Entitic vol] 10.2 fL 6.2-12.0 [facility] Monocyte percentageOrdered B y: Odalis Saravia on 10-23-2024 Monocytes/100 WBC (Bld) 10.7 % High 0-10 [facility] Neutrophil percentageOrdered By: Odalis Saravia on 05-08-2025 Neutrophils/100 WBC (Bld) 24.4 % Low 47-70 [facility] Nucleated red blood cell per centageOrdered By: Odalis Saravia on 10-23-2024 Nucleated RBC/100 WBC (Bld) [Ratio] 0 % 0-5 [facility] Platelet countOrdered By: Ila Saravia on 10-23-2024 Platelets (Bld) [#/Vol] 339 10*3/uL 150-450 [facility] Potassium measurement (mass/ volume)Ordered By: Odalis Saravia on 10-23-2024 Potassium (Unsp spec) [Mass/Vol] 4.5 mmol/L 3.3-5.1 [facility] RBC Auto (Bld) [#/Vol]Ordere d By: Odalis Saravia on 10-23-2024 RBC (Bld) [#/Vol] 3.61 10*6/uL Low 4.2-5.4 [facility] Screening total cholesterol/ high density lipoprotein (HDL) cholesterol ratioOrdered By: Odalis Saravia on 10-23-2024 Cholesterol.total/Choles terol in HDL [Mass ratio] 4.11 {ratio} [facility] Serum creatinine measurement (mass/volume)Ordered By: Odalis Saravia on 10-23-2024 Creatinine [Mass/Vol] 0.97 mg/dL 0.70-1.20 [facility] Serum globulin measurementOr dered By: Odalis Saravia on 10-23-2024 Globulin (S) [Mass/Vol] 2.6 g/dL 2.2-4.2 [facility] Serum glucose measurement (m ass/volume)Ordered By: Odalis Saravia on 10-23-2024 Glucose [Mass/Vol] 85 mg/dL 70-99 [facility] Serum or plasma alanine ga otransferase (ALT) measurementOrdered By: Odalis Saravia on 10-23-2024 ALT [Catalytic activity/Vol] 15 U/L <35 [facility] Serum or plasma albumin fran urement (mass/volume)Ordered By: Odalis Saravia on 10-23-2024 Albumin [Mass/Vol] 3.8 g/dL 3.4-4.8 [facility] Serum or plasma alkaline karthik sphatase measurementOrdered By: Odalis Saravia on 10-23-2024 ALP [Catalytic activity/Vol] 176 U/L High 35-104 [facility] Serum or plasma calcium fran urement (mass/volume)Ordered By: Odalis Saravia on 10-23-2024 Calcium [Mass/Vol] 9.1 mg/dL 7.6-11.0 [facility] Serum or plasma cholesterol in HDL measurement (mass/volume)Ordered By: Odalis Saravia on 10-23-2024 Cholesterol in HDL [Mass/Vol] 48 mg/dL >40 [facility] Comment on above: National Cholesterol Education Program (NCEP) guidelines:<40 mg/dL: Low HDL-cholesterol (major risk factor for CHD)>= 60 mg/dL: High HDL-cholesterol (negative risk factor for CHD)HDL-cholesterol is affected by a number of factors, e.g. smoking, exercise, hormones, sex and age. Serum or plasma cholesterol measurement (mass/volume)Ordered By: Odalis Saravia on 10-23-2024 Cholesterol [Mass/Vol] 196 mg/dL <201 [facility] Comment on above: Cholesterol level, D esirable <200 mg/dLBorderline high cholesterol 200-239 mg/dLHigh cholesterol >=240 mg/dLRecommendations of the NCEP Adult Treatment Panel for the following risk-cutoff thresholds for the [place] population. Serum or plasma urea nitroge n measurement (mass/volume)Ordered By: Odalis Saravia on 10-23-2024 Urea nitrogen [Mass/Vol] 33 mg/dL High 4-19 [facility] Sodium levelOrdered By: Candice Saravia on 10-23-2024 Sodium [Moles/Vol] 137 mmol/L 133-145 [facility] Total proteinOrdered By: Curtis Saravia on 10-23-2024 Protein [Mass/Vol] 6.5 g/dL 5.9-8.4 [facility] Triglycerides measurementOrd ered By: Odalis Saravia on 10-23-2024 Triglyceride [Mass/Vol] 126 mg/dL <199 [facility] Comment on above: The drugs N-Acetylcy steine and Metamizole may falsely depress this assay. Normal range: <150 mg/dLBorderline High: 150-199 mg/dLHigh: 200-499 mg/dLVery High: >500 mg/dL Vitamin B12 ser/plasOrdered By: Odalis Saravia on 10-23-2024 Cobalamin (Vitamin B12) [Mass/Vol] 1049 pg/mL High 180-914 [facility] White blood cell (WBC) count Ordered By: Odalis Saravia on 10-23-2024 WBC (Bld) [#/Vol] 14.3 10*3/uL High 4.4-11.0 [facility] Absolute lymphocyte countOrd ered By: Odalis Saravia on 10-22-2024 Lymphocytes Auto (Unsp spec) [#/Vol] 6.78 10*3/uL High 0.83-4.51 [facility] Absolute neutrophil countOrd ered By: Odalis Saravia on 10-22-2024 Neutrophils (Bld) [#/Vol] 3.8 10*3/uL 2.0-7.7 [facility] Anion gap in Serum or Plasma Ordered By: Odalis Saravia on 10-22-2024 Anion gap [Moles/Vol] 10 mmol/L 5-15 [facility] Automated lymphocyte count a s percentage of total leukocytesOrdered By: Odalis Saravia on 10-22-2024 Lymphocytes/100 WBC Auto (Unsp spec) 49.3 % High 19-41 [facility] BUN/creatinine ratioOrdered By: Odalis Saravia on 10-22-2024 Urea nitrogen/Creatinine [Mass ratio] 29.8 mg/mg High 10-20 [facility] Basophil percentageOrdered B y: Odalis Saravia on 10-22-2024 Basophils/100 WBC (Bld) 3.5 % High 0-1 [facility] Bilirubin, totalOrdered By: Odalis Saravia on 10-22-2024 Bilirubin [Mass/Vol] 0.40 mg/dL 0.00-1.30 [facility] Carbon dioxide, total [Moles /volume] in Central venous bloodOrdered By: Odalis Saravia on 10-22-2024 CO2 [Moles/Vol] 23.1 mmol/L 21.0-32.0 [facility] Chloride assayOrdered By: Ila Saravia on 10-22-2024 Chloride [Moles/Vol] 104 mmol/L 98-108 [facility] Eosinophil percentageOrdered By: Odalis Saravia on 10-22-2024 Eosinophils/100 WBC (Bld) 10.4 % High 0-5 [facility] Erythrocyte distribution wid th ratioOrdered By: bonniewilkes barrelaila Saravia on 10-22-2024 Erythrocyte distribution width (RBC) [Ratio] 13.2 % 11.6-14.6 [facility] Erythrocyte distribution wid th standard deviationOrdered By: bonniewilkes barrelaila Saravia on 10-22-2024 Erythrocyte distribution width (RBC) [Ratio] 47.1 fl High 35.1-43.9 [facility] Glomerular filtration rate ( GFR) estimation/1.73 sq m using serum, plasma, or whole bOrdered By: Odalis Saravia on 10-22-2024 GFR/1.73 sq M.predicted among non-blacks MDRD (S/P/Bld) [Vol rate/Area] 60 mL/min/{1.73_m2} >60 [facility] Comment on above: mL/min/1.73m2 CKD-EP I Creatinine Equation (2020) Hematocrit Auto (Bld) [Volum e fraction]Ordered By: Odalis Saravia on 10-22-2024 Hematocrit (Bld) [Volume fraction] 35.2 % Low 37-47 [facility] Hemoglobin measurementOrdere d By: Odalis Saravia on 10-22-2024 Hemoglobin (Bld) [Mass/Vol] 11.6 g/dL Low 12.0-15.0 [facility] Immature granulocytes/100 WB C Auto (Bld)Ordered By: Odalis Saravia on 10-22-2024 Immature granulocytes/100 WBC (Bld) 0.300 % 0.0-0.9 [facility] Comment on above: IG% - Immature Granu locytes (promyelocytes, myelocytes and metamyelocytes) > 1% indicates that a LEFT SHIFT is Present. Laboratory - Chemistry and C hemistry - challengeOrdered By: Odalis Saravia on 10-22-2024 AST [Catalytic activity/Vol] 38 U/L High <32 [facility] MCV (mean corpuscular volume ) determinationOrdered By: Odalis Saravia on 10-22-2024 MCV (RBC) [Entitic vol] 96.2 fL 81-99 [facility] Mean corpuscular hemoglobin (MCH) determinationOrdered By: Odalis Saravia on 10-22-2024 MCH (RBC) [Entitic mass] 31.7 pg 27.0-32.0 [facility] Mean corpuscular hemoglobin concentration (MCHC) determinationOrdered By: Odalis Saravia on 10-22-2024 MCHC (RBC) [Mass/Vol] 33.0 g/dL 32-36 [facility] Mean platelet volume determi nationOrdered By: Odalis Saravia on 10-22-2024 Platelet mean volume (Bld) [Entitic vol] 10.3 fL 6.2-12.0 [facility] Monocyte percentageOrdered B y: Odalis Saravia on 10-22-2024 Monocytes/100 WBC (Bld) 9.1 % 0-10 [facility] Neutrophil percentageOrdered By: Odalis Saravia on 10-22-2024 Neutrophils/100 WBC (Bld) 27.4 % Low 47-70 [facility] Nucleated red blood cell per centageOrdered By: Odalis Saravia on 10-22-2024 Nucleated RBC/100 WBC (Bld) [Ratio] 0 % 0-5 [facility] Platelet countOrdered By: Ila Saravia on 10-22-2024 Platelets (Bld) [#/Vol] 346 10*3/uL 150-450 [facility] Platelet estimateOrdered By: Odalis Saravia on 10-22-2024 Platelets LM Ql (Bld) A ADEQ [facility] Potassium measurement (mass/ volume)Ordered By: Odalis Saravia on 10-22-2024 Potassium (Unsp spec) [Mass/Vol] 4.4 mmol/L 3.3-5.1 [facility] RBC Auto (Bld) [#/Vol]Ordere d By: Odalis Saravia on 10-22-2024 RBC (Bld) [#/Vol] 3.66 10*6/uL Low 4.2-5.4 [facility] Review by pathologistOrdered By: dOalis Saravia on 10-22-2024 Pathologist review Porter (Unsp spec) [Interp] Reviewed [facility] Comment on above: Previous reported re sult: Heide mckenna Edited by: VIAN on 11/06/24:1024SEE REPORT IN PATIENT'S EMR AMENDED REPORT 11/06/24 1024 PATH REV previously reported as: Heide mckenna Serum creatinine measurement (mass/volume)Ordered By: Odalis Saravia on 10-22-2024 Creatinine [Mass/Vol] 0.92 mg/dL 0.70-1.20 [facility] Serum globulin measurementOr dered By: Odalis Saravia on 10-22-2024 Globulin (S) [Mass/Vol] 2.8 g/dL 2.2-4.2 [facility] Serum glucose measurement (m ass/volume)Ordered By: Odalis Saravia on 10-22-2024 Glucose [Mass/Vol] 90 mg/dL 70-99 [facility] Serum or plasma alanine ga otransferase (ALT) measurementOrdered By: Odalis Saravia on 10-22-2024 ALT [Catalytic activity/Vol] 19 U/L <35 [facility] Serum or plasma albumin fran urement (mass/volume)Ordered By: Odalis Saravia on 10-22-2024 Albumin [Mass/Vol] 4.0 g/dL 3.4-4.8 [facility] Serum or plasma albumin/glob ulin mass ratioOrdered By: Odalis Saravia on 10-22-2024 Albumin/Globulin [Mass ratio] 1.4 {ratio} 0.9-2.4 [facility] Serum or plasma alkaline karthik sphatase measurementOrdered By: Odalis Saravia on 10-22-2024 ALP [Catalytic activity/Vol] 173 U/L High 35-104 [facility] Serum or plasma calcium fran urement (mass/volume)Ordered By: Odalis Saravia on 10-22-2024 Calcium [Mass/Vol] 9.3 mg/dL 7.6-11.0 [facility] Serum or plasma urea nitroge n measurement (mass/volume)Ordered By: Odalis Saravia on 10-22-2024 Urea nitrogen [Mass/Vol] 28 mg/dL High 4-19 [facility] Sodium levelOrdered By: Candice Saravia on 10-22-2024 Sodium [Moles/Vol] 137 mmol/L 133-145 [facility] Teardrop cell detectionOrder ed By: Odalis Saravia on 10-22-2024 Dacrocytes LM Ql (Bld) 1+ [facility] Total proteinOrdered By: Curtis Saravia on 10-22-2024 Protein [Mass/Vol] 6.8 g/dL 5.9-8.4 [facility] White blood cell (WBC) count Ordered By: Odalis Saravia on 10-22-2024 WBC (Bld) [#/Vol] 13.7 10*3/uL High 4.4-11.0 [facility] CNOVon 10-20-2024 CNOV Office Visit (RUTHN) KAYLENE HAYNES ([id number]) 1935 F Date Time Provider Department 10/20/24 [...] or you can send a message through [employer]. You can also now schedule and select appointments through [employer]. MD Chrissy Quiros Kristin, MD 10/20/2024 11:40 AM Signed [facility] - FOLLOW UP EVALUATION Primary Movement Disorders Neurologist: Selvin Felder MD Primary [facility] Disorders TONE: Not yet assigned Recording using [employer] software for draft documentation of the visit was discussed with the patient/authorized client representative; all questions welcomed and answered. Patient/authorized client representative agreed to proceed Howard Zimmerman MD [id number] [id number] Dear Howard Zimmerman MD: I had the [...] endorse any fluid restrictions advised by a waist cutter. She reports persistent fatigue, stating, "I just [...] Prior Anti-Parkinson (more content not included)... Normal [facility] Absolute lymphocyte countOrd ered By: Odalis Saravia on 09-18-2024 Lymphocytes Auto (Unsp spec) [#/Vol] 6.98 10*3/uL High 0.83-4.51 [facility] Absolute neutrophil countOrd ered By: Odalis Saravia on 09-18-2024 Neutrophils (Bld) [#/Vol] 4.3 10*3/uL 2.0-7.7 [facility] Anion gap in Serum or Plasma Ordered By: Odalis Saravia on 09-18-2024 Anion gap [Moles/Vol] 12 mmol/L 5-15 [facility] Automated lymphocyte count a s percentage of total leukocytesOrdered By: Odalis Saravia on 09-18-2024 Lymphocytes/100 WBC Auto (Unsp spec) 46.1 % High 19-41 [facility] BUN/creatinine ratioOrdered By: Odalis Saravia on 09-18-2024 Urea nitrogen/Creatinine [Mass ratio] 21.8 mg/mg High 10-20 [facility] Basophil percentageOrdered B y: Odalis Saravia on 09-18-2024 Basophils/100 WBC (Bld) 2.9 % High 0-1 [facility] Bilirubin directOrdered By: Odalis Saravia on 09-18-2024 Bilirubin.direct [Mass/Vol] 0.19 mg/dL 0.00-0.30 [facility] Bilirubin, totalOrdered By: Odalis Saravia on 09-18-2024 Bilirubin [Mass/Vol] 0.42 mg/dL 0.00-1.30 [facility] Carbon dioxide, total [Moles /volume] in Central venous bloodOrdered By: Odalis Saravia on 09-18-2024 CO2 [Moles/Vol] 21.8 mmol/L 21.0-32.0 [facility] Chloride assayOrdered By: Ila Saravia on 09-18-2024 Chloride [Moles/Vol] 104 mmol/L 98-108 [facility] Eosinophil percentageOrdered By: Odalis Saravia on 09-18-2024 Eosinophils/100 WBC (Bld) 13.4 % High 0-5 [facility] Erythrocyte distribution wid th (RBC) [Ratio]Ordered By: Odalis Saravia on 09-18-2024 Erythrocyte distribution width (RBC) [Entitic vol] 46.9 fL High 35.1-43.9 [facility] Erythrocyte distribution wid th ratioOrdered By: Odalis Saravia on 09-18-2024 Erythrocyte distribution width (RBC) [Ratio] 13.2 % 11.6-14.6 [facility] Erythrocyte distribution wid th standard deviationOrdered By: Odalis Saravia on 09-18-2024 Erythrocyte distribution width (RBC) [Ratio] 46.9 fl High 35.1-43.9 [facility] GFR/1.73 sq M.predicted jitendra g non-blacks MDRD (S/P/Bld) [Vol rate/Area]Ordered By: Odalis Saravia on 09-18-2024 Estimated GFR (MDRD) Non-Af Amer 44 Low >60 [facility] Comment on above: mL/min/1.73m2 CKD-EP I Creatinine Equation (2020) Glomerular filtration rate ( GFR) estimation/1.73 sq m using serum, plasma, or whole bOrdered By: Odalis Saravia on 09-18-2024 GFR/1.73 sq M.predicted among non-blacks MDRD (S/P/Bld) [Vol rate/Area] 44 mL/min/{1.73_m2} Low >60 [facility] Comment on above: mL/min/1.73m2 CKD-EP I Creatinine Equation (2020) Hematocrit Auto (Bld) [Volum e fraction]Ordered By: Odalis Saravia on 09-18-2024 Hematocrit (Bld) [Volume fraction] 34.5 % Low 37-47 [facility] Hemoglobin measurementOrdere d By: Odalis Saravia on 09-18-2024 Hemoglobin (Bld) [Mass/Vol] 11.4 g/dL Low 12.0-15.0 [facility] Immature granulocytes/100 WB C Auto (Bld)Ordered By: Odalis Saravia on 09-18-2024 Immature granulocytes/100 WBC (Bld) 0.300 % 0.0-0.9 [facility] Comment on above: IG% - Immature Granu locytes (promyelocytes, myelocytes and metamyelocytes) > 1% indicates that a LEFT SHIFT is Present. Laboratory - Chemistry and C hemistry - challengeOrdered By: Odalis Saravia on 09-18-2024 AST [Catalytic activity/Vol] 41 U/L High <32 [facility] Lymphocytes Auto (Unsp spec) [#/Vol]Ordered By: Efmarcy Toe on 09-18-2024 Lymphocytes (Bld) [#/Vol] 6.98 10*3/uL High 0.83-4.51 [facility] Lymphocytes/100 WBC Auto (Un sp spec)Ordered By: Odalis Saravia on 09-18-2024 Lymphocytes/100 WBC (Bld) 46.1 % High 19-41 [facility] MCV (mean corpuscular volume ) determinationOrdered By: Odalis Saravia on 09-18-2024 MCV (RBC) [Entitic vol] 96.6 fL 81-99 [facility] Mean corpuscular hemoglobin (MCH) determinationOrdered By: Odalis Saravia on 09-18-2024 MCH (RBC) [Entitic mass] 31.9 pg 27.0-32.0 [facility] Mean corpuscular hemoglobin concentration (MCHC) determinationOrdered By: Odalis Saravia on 09-18-2024 MCHC (RBC) [Mass/Vol] 33.0 g/dL 32-36 [facility] Mean platelet volume determi nationOrdered By: Odalis Saravia on 09-18-2024 Platelet mean volume (Bld) [Entitic vol] 10.4 fL 6.2-12.0 [facility] Monocyte percentageOrdered B y: Odalis Saravia on 09-18-2024 Monocytes/100 WBC (Bld) 8.8 % 0-10 [facility] Neutrophil percentageOrdered By: Odalis Toe on 09-18-2024 Neutrophils/100 WBC (Bld) 28.5 % Low 47-70 [facility] Nucleated red blood cell per centageOrdered By: Odalis Saravia on 09-18-2024 Nucleated RBC/100 WBC (Bld) [Ratio] 0 % 0-5 [facility] Platelet countOrdered By: Ila Saravia on 09-18-2024 Platelets (Bld) [#/Vol] 328 10*3/uL 150-450 [facility] Potassium (Unsp spec) [Mass/ Vol]Ordered By: Odalis Saravia on 09-18-2024 Potassium [Moles/Vol] 4.5 mmol/L 3.3-5.1 [facility] Potassium measurement (mass/ volume)Ordered By: Odalis Saravia on 09-18-2024 Potassium (Unsp spec) [Mass/Vol] 4.5 mmol/L 3.3-5.1 [facility] RBC Auto (Bld) [#/Vol]Ordere d By: Odalis Saravia on 09-18-2024 RBC (Bld) [#/Vol] 3.57 10*6/uL Low 4.2-5.4 [facility] Serum creatinine measurement (mass/volume)Ordered By: Odalis Saravia on 09-18-2024 Creatinine [Mass/Vol] 1.19 mg/dL 0.70-1.20 [facility] Serum globulin measurementOr dered By: Odalis Saravia on 09-18-2024 Globulin (S) [Mass/Vol] 2.7 g/dL 2.2-4.2 [facility] Serum glucose measurement (m ass/volume)Ordered By: Odalis Saravia on 09-18-2024 Glucose [Mass/Vol] 83 mg/dL 70-99 [facility] Serum or plasma alanine ga otransferase (ALT) measurementOrdered By: Odalis Saravia on 09-18-2024 ALT [Catalytic activity/Vol] 5 U/L <35 [facility] Serum or plasma albumin fran urement (mass/volume)Ordered By: Odalis Saravia on 09-18-2024 Albumin [Mass/Vol] 3.8 g/dL 3.4-4.8 [facility] Serum or plasma alkaline karthik sphatase measurementOrdered By: Odalis Saravia on 09-18-2024 ALP [Catalytic activity/Vol] 142 U/L High 35-104 [facility] Serum or plasma calcium fran urement (mass/volume)Ordered By: Odalis Saravia on 09-18-2024 Calcium [Mass/Vol] 9.1 mg/dL 7.6-11.0 [facility] Serum or plasma urea nitroge n measurement (mass/volume)Ordered By: Ilamarcy Saravia on 09-18-2024 Urea nitrogen [Mass/Vol] 26 mg/dL High 4-19 [facility] Sodium levelOrdered By: Candice swift Manjit on 09-18-2024 Sodium [Moles/Vol] 137 mmol/L 133-145 [facility] Total proteinOrdered By: Curtis mo Riccardoermiascarlito on 09-18-2024 Protein [Mass/Vol] 6.5 g/dL 5.9-8.4 [facility] Vitamin B12 ser/plasOrdered By: Matrhalaila Saravia on 09-18-2024 Cobalamin (Vitamin B12) [Mass/Vol] 1000 pg/mL High 180-914 [facility] Vitamin D, 25-hydroxyOrdered By: Odalis Saravia on 09-18-2024 Vitamin D 25-Hydroxy 42.0 ng/mL 30-100 [facility] Comment on above: Vitamin D StatusDefi ciency: <20 ng/mL (50nmol/L)Insufficiency: 20-30 ng/mL (50-75 nmol/L)Sufficiency: 30-100 ng/mL (75-250 nmol/L)Toxicity: >100 ng/mL (>250 nmol/L) White blood cell (WBC) count Ordered By: Odalis Saravia on 09-18-2024 WBC (Bld) [#/Vol] 15.1 10*3/uL High 4.4-11.0 [facility] Absolute lymphocyte countOrd ered By: Odalis Saravia on 09-11-2024 Lymphocytes Auto (Unsp spec) [#/Vol] 6.28 10*3/uL High 0.83-4.51 [facility] Absolute neutrophil countOrd ered By: Ilamarcy Saravia on 09-11-2024 Neutrophils (Bld) [#/Vol] 4.3 10*3/uL 2.0-7.7 [facility] Anion gap in Serum or Plasma Ordered By: Odalis Saravia on 09-11-2024 Anion gap [Moles/Vol] 9 mmol/L 5-15 [facility] Automated lymphocyte count a s percentage of total leukocytesOrdered By: Odalis Riccardoermiascarlito on 09-11-2024 Lymphocytes/100 WBC Auto (Unsp spec) 45.1 % High 19-41 [facility] BUN/creatinine ratioOrdered By: Odalis Tocarlito on 09-11-2024 Urea nitrogen/Creatinine [Mass ratio] 27.1 mg/mg High 10-20 [facility] Basophil percentageOrdered B y: Odalis Saravia on 09-11-2024 Basophils/100 WBC (Bld) 3.2 % High 0-1 [facility] Carbon dioxide, total [Moles /volume] in Central venous bloodOrdered By: Ilamarcy Guermiascarlito on 09-11-2024 CO2 [Moles/Vol] 25.4 mmol/L 21.0-32.0 [facility] Chloride assayOrdered By: Ila miladylaila Guermiascarlito on 09-11-2024 Chloride [Moles/Vol] 104 mmol/L 98-108 [facility] Eosinophil percentageOrdered By: marcy Saravia on 09-11-2024 Eosinophils/100 WBC (Bld) 10.6 % High 0-5 [facility] Erythrocyte distribution wid th (RBC) [Ratio]Ordered By: Ilabonniejeniffer Tocarlito on 09-11-2024 Erythrocyte distribution width (RBC) [Entitic vol] 47.8 fL High 35.1-43.9 [facility] Erythrocyte distribution wid th ratioOrdered By: Odalis Riccardoermiascarlito on 09-11-2024 Erythrocyte distribution width (RBC) [Ratio] 13.3 % 11.6-14.6 [facility] Erythrocyte distribution wid th standard deviationOrdered By: bonniewilkes barrelaila Zuleikacarlito on 09-11-2024 Erythrocyte distribution width (RBC) [Ratio] 47.8 fl High 35.1-43.9 [facility] GFR/1.73 sq M.predicted jitendra g non-blacks MDRD (S/P/Bld) [Vol rate/Area]Ordered By: Odalis Saravia on 09-11-2024 Estimated GFR (MDRD) Non-Af Amer 53 Low >60 [facility] Comment on above: mL/min/1.73m2 CKD-EP I Creatinine Equation (2020) Glomerular filtration rate ( GFR) estimation/1.73 sq m using serum, plasma, or whole bOrdered By: Odalis Saravia on 09-11-2024 GFR/1.73 sq M.predicted among non-blacks MDRD (S/P/Bld) [Vol rate/Area] 53 mL/min/{1.73_m2} Low >60 [facility] Comment on above: mL/min/1.73m2 CKD-EP I Creatinine Equation (2020) Hematocrit Auto (Bld) [Volum e fraction]Ordered By: Odalis Saravia on 09-11-2024 Hematocrit (Bld) [Volume fraction] 37.5 % 37-47 [facility] Hemoglobin measurementOrdere d By: Odalis Saravia on 09-11-2024 Hemoglobin (Bld) [Mass/Vol] 12.2 g/dL 12.0-15.0 [facility] Immature granulocytes/100 WB C Auto (Bld)Ordered By: Odalis Saravia on 09-11-2024 Immature granulocytes/100 WBC (Bld) 0.300 % 0.0-0.9 [facility] Comment on above: IG% - Immature Granu locytes (promyelocytes, myelocytes and metamyelocytes) > 1% indicates that a LEFT SHIFT is Present. Lymphocytes Auto (Unsp spec) [#/Vol]Ordered By: Odalis Saravia on 09-11-2024 Lymphocytes (Bld) [#/Vol] 6.28 10*3/uL High 0.83-4.51 [facility] Lymphocytes/100 WBC Auto (Un sp spec)Ordered By: Odalis Saravia on 09-11-2024 Lymphocytes/100 WBC (Bld) 45.1 % High 19-41 [facility] MCV (mean corpuscular volume ) determinationOrdered By: Odalis Saravia on 09-11-2024 MCV (RBC) [Entitic vol] 98.4 fL 81-99 [facility] Mean corpuscular hemoglobin (MCH) determinationOrdered By: Odalis Saravia on 09-11-2024 MCH (RBC) [Entitic mass] 32.0 pg 27.0-32.0 [facility] Mean corpuscular hemoglobin concentration (MCHC) determinationOrdered By: Odalis Saravia on 09-11-2024 MCHC (RBC) [Mass/Vol] 32.5 g/dL 32-36 [facility] Mean platelet volume determi nationOrdered By: Odalis Saravia on 09-11-2024 Platelet mean volume (Bld) [Entitic vol] 11.0 fL 6.2-12.0 [facility] Monocyte percentageOrdered B y: Odalis Saravia on 09-11-2024 Monocytes/100 WBC (Bld) 9.8 % 0-10 [facility] Neutrophil percentageOrdered By: Odalis Saravia on 09-11-2024 Neutrophils/100 WBC (Bld) 31.0 % Low 47-70 [facility] Nucleated red blood cell per centageOrdered By: Odalis Saravia on 09-11-2024 Nucleated RBC/100 WBC (Bld) [Ratio] 0 % 0-5 [facility] Platelet countOrdered By: Ila Saravia on 09-11-2024 Platelets (Bld) [#/Vol] 267 10*3/uL 150-450 [facility] Platelet estimateOrdered By: Odalis Saravia on 09-11-2024 Platelets LM Ql (Bld) A ADEQ [facility] Platelets LM Ql (Bld)Ordered By: Odalis Saravia on 09-11-2024 Platelet Estimate A [facility] Potassium (Unsp spec) [Mass/ Vol]Ordered By: Odalis Saravia on 09-11-2024 Potassium [Moles/Vol] 4.5 mmol/L 3.3-5.1 [facility] Potassium measurement (mass/ volume)Ordered By: Odalis Saravia on 09-11-2024 Potassium (Unsp spec) [Mass/Vol] 4.5 mmol/L 3.3-5.1 [facility] RBC Auto (Bld) [#/Vol]Ordere d By: Odalis Saravia on 09-11-2024 RBC (Bld) [#/Vol] 3.81 10*6/uL Low 4.2-5.4 [facility] Reactive lymphocyte countOrd ered By: Odalis Saravia on 09-11-2024 Reactive Lymphocytes 1+ [facility] Serum creatinine measurement (mass/volume)Ordered By: Odalis Saravia on 09-11-2024 Creatinine [Mass/Vol] 1.02 mg/dL 0.70-1.20 [facility] Serum glucose measurement (m ass/volume)Ordered By: Odalis Saravia on 09-11-2024 Glucose [Mass/Vol] 83 mg/dL 70-99 [facility] Serum or plasma calcium fran urement (mass/volume)Ordered By: Odalis Saravia on 09-11-2024 Calcium [Mass/Vol] 9.3 mg/dL 7.6-11.0 [facility] Serum or plasma urea nitroge n measurement (mass/volume)Ordered By: Odalis Saravia on 09-11-2024 Urea nitrogen [Mass/Vol] 28 mg/dL High 4-19 [facility] Sodium levelOrdered By: Candice Saravia on 09-11-2024 Sodium [Moles/Vol] 138 mmol/L 133-145 [facility] White blood cell (WBC) count Ordered By: Odalis Saravia on 09-11-2024 WBC (Bld) [#/Vol] 13.9 10*3/uL High 4.4-11.0 [facility] Absolute lymphocyte countOrd ered By: Odalis Saravia on 08-14-2024 Lymphocytes Auto (Unsp spec) [#/Vol] 7.18 10*3/uL High 0.83-4.51 [facility] Absolute neutrophil countOrd ered By: Odalis Saravia on 08-14-2024 Neutrophils (Bld) [#/Vol] 3.4 10*3/uL 2.0-7.7 [facility] Automated lymphocyte count a s percentage of total leukocytesOrdered By: Odalis Saravia on 08-14-2024 Lymphocytes/100 WBC Auto (Unsp spec) 55.1 % High 19-41 [facility] BUN/creatinine ratioOrdered By: Odalis Saravia on 08-14-2024 Urea nitrogen/Creatinine [Mass ratio] 29.0 mg/mg High 10-20 [facility] Basophil percentageOrdered B y: Odalis Saravia on 08-14-2024 Basophils/100 WBC (Bld) 3.1 % High 0-1 [facility] Carbon dioxide measurementOr dered By: Odalis Saravia on 08-14-2024 CO2 [Moles/Vol] 22.8 mmol/L 22.0-29.0 [facility] Chloride measurementOrdered By: Odalis Saravia on 08-14-2024 Chloride [Moles/Vol] 104 mmol/L 96-108 [facility] Creatinine [Moles/Vol]Ordere d By: Odalis Saravia on 08-14-2024 Creatinine [Mass/Vol] 1.0 mg/dL 0.6-1.0 [facility] Eosinophil percentageOrdered By: Odalis Saravia on 08-14-2024 Eosinophils/100 WBC (Bld) 4.1 % 0-5 [facility] Erythrocyte distribution wid th (RBC) [Ratio]Ordered By: Odalis Saravia on 08-14-2024 Erythrocyte distribution width (RBC) [Entitic vol] 48.2 fL High 35.1-43.9 [facility] Erythrocyte distribution wid th ratioOrdered By: Odalis Saravia on 08-14-2024 Erythrocyte distribution width (RBC) [Ratio] 13.4 % 11.6-14.6 [facility] Erythrocyte distribution wid th standard deviationOrdered By: Odalis Saravia on 08-14-2024 Erythrocyte distribution width (RBC) [Ratio] 48.2 fl High 35.1-43.9 [facility] GFR/1.73 sq M.predicted jitendra g non-blacks MDRD (S/P/Bld) [Vol rate/Area]Ordered By: Odalis Saravia on 08-14-2024 Estimated GFR (MDRD) Non-Af Amer 54 Low >60 [facility] Comment on above: mL/min/1.73m2 CKD-EP I Creatinine Equation (2020) Glomerular filtration rate ( GFR) estimation/1.73 sq m using serum, plasma, or whole bOrdered By: Odalis Saravia on 08-14-2024 GFR/1.73 sq M.predicted among non-blacks MDRD (S/P/Bld) [Vol rate/Area] 54 mL/min/{1.73_m2} Low >60 [facility] Comment on above: mL/min/1.73m2 CKD-EP I Creatinine Equation (2020) Hematocrit Auto (Bld) [Volum e fraction]Ordered By: marcy Saravia on 08-14-2024 Hematocrit (Bld) [Volume fraction] 35.0 % Low 37-47 [facility] Hemoglobin measurementOrdere d By: Odalis Saravia on 08-14-2024 Hemoglobin (Bld) [Mass/Vol] 11.5 g/dL Low 12.0-15.0 [facility] Immature granulocytes/100 WB C Auto (Bld)Ordered By: bonniewilkes barrelaila Saravia on 08-14-2024 Immature granulocytes/100 WBC (Bld) 0.200 % 0.0-0.9 [facility] Comment on above: IG% - Immature Granu locytes (promyelocytes, myelocytes and metamyelocytes) > 1% indicates that a LEFT SHIFT is Present. Lymphocytes Auto (Unsp spec) [#/Vol]Ordered By: Odalis Saravia on 08-14-2024 Lymphocytes (Bld) [#/Vol] 7.18 10*3/uL High 0.83-4.51 [facility] Lymphocytes/100 WBC Auto (Un sp spec)Ordered By: Odalis Saravia on 08-14-2024 Lymphocytes/100 WBC (Bld) 55.1 % High 19-41 [facility] MCV (mean corpuscular volume ) determinationOrdered By: Odalis Saravia on 08-14-2024 MCV (RBC) [Entitic vol] 97.2 fL 81-99 [facility] Mean corpuscular hemoglobin (MCH) determinationOrdered By: Odalis Saravia 08-14-2024 MCH (RBC) [Entitic mass] 31.9 pg 27.0-32.0 [facility] Mean corpuscular hemoglobin concentration (MCHC) determinationOrdered By: Odalis Saravia on 08-14-2024 MCHC (RBC) [Mass/Vol] 32.9 g/dL 32-36 [facility] Mean platelet volume determi nationOrdered By: Odalis Saravia on 08-14-2024 Platelet mean volume (Bld) [Entitic vol] 10.0 fL 6.2-12.0 [facility] Monocyte percentageOrdered B y: Odalis Saravia on 08-14-2024 Monocytes/100 WBC (Bld) 11.4 % High 0-10 [facility] Neutrophil percentageOrdered By: Odalis Saravia on 08-14-2024 Neutrophils/100 WBC (Bld) 26.1 % Low 47-70 [facility] Nucleated red blood cell per centageOrdered By: Odalis Saravia on 08-14-2024 Nucleated RBC/100 WBC (Bld) [Ratio] 0 % 0-5 [facility] Platelet countOrdered By: Ila Saravia on 08-14-2024 Platelets (Bld) [#/Vol] 372 10*3/uL 150-450 [facility] RBC Auto (Bld) [#/Vol]Ordere d By: Odalis Saravia on 08-14-2024 RBC (Bld) [#/Vol] 3.60 10*6/uL Low 4.2-5.4 [facility] Reactive lymphocyte countOrd ered By: Odalis Saravia on 08-14-2024 Reactive Lymphocytes 2+ [facility] Serum glucose measurement (m ass/volume)Ordered By: Odalis Saravia on 08-14-2024 Glucose [Mass/Vol] 85 mg/dL 70-99 [facility] Serum or plasma anion gap de termination (moles/volume)Ordered By: Odalis Saravia on 08-14-2024 Anion gap [Moles/Vol] 12 mmol/L 5-15 [facility] Serum or plasma calcium fran urement (mass/volume)Ordered By: Odalis Saravia on 08-14-2024 Calcium [Mass/Vol] 9.5 mg/dL 7.6-11.0 [facility] Serum or plasma creatinine m easurement (moles/volume)Ordered By: Ilabonnielavonnelaila Guermiascarlito on 08-14-2024 Creatinine [Moles/Vol] 1.0 mg/dL 0.6-1.0 [facility] Serum or plasma potassium me asurementOrdered By: Odalis Saravia on 08-14-2024 Potassium [Moles/Vol] 4.5 mmol/L 3.3-5.1 [facility] Serum or plasma sodium measu rement (moles/volume)Ordered By: Odalis Saravia on 08-14-2024 Sodium [Moles/Vol] 138 mmol/L 133-145 [facility] Serum or plasma urea nitroge n measurement (mass/volume)Ordered By: Odalis Guermiascarlito on 08-14-2024 Urea nitrogen [Mass/Vol] 29 mg/dL High 4-19 [facility] White blood cell (WBC) count Ordered By: Odalis Guermiascarlito on 08-14-2024 WBC (Bld) [#/Vol] 13.0 10*3/uL High 4.4-11.0 [facility] Absolute lymphocyte countOrd ered By: Odalis Guermiascarlito on 07-17-2024 Lymphocytes Auto (Unsp spec) [#/Vol] 8.58 10*3/uL High 0.83-4.51 [facility] Absolute neutrophil countOrd ered By: Odalis Guermiascarlito on 07-17-2024 Neutrophils (Bld) [#/Vol] 4.1 10*3/uL 2.0-7.7 [facility] Automated lymphocyte count a s percentage of total leukocytesOrdered By: Odalis Saravia on 07-17-2024 Lymphocytes/100 WBC Auto (Unsp spec) 53.6 % High 19-41 [facility] Basophil percentageOrdered B y: Odalis Saravia on 07-17-2024 Basophils/100 WBC (Bld) 3.1 % High 0-1 [facility] Blood urea nitrogen (BUN)/cr eatinine ratioOrdered By: Odalis Saravia on 07-17-2024 Urea nitrogen/Creatinine [Mass ratio] 23.9 mg/mg High 10-20 [facility] Carbon dioxide measurementOr dered By: Odalis Saravia on 07-17-2024 CO2 [Moles/Vol] 26.0 mmol/L 21.0-32.0 [facility] Chloride measurementOrdered By: Odalis Saravia on 07-17-2024 Chloride [Moles/Vol] 106 mmol/L 98-107 [facility] Eosinophil percentageOrdered By: Odalis Saravia on 07-17-2024 Eosinophils/100 WBC (Bld) 8.2 % High 0-5 [facility] Erythrocyte distribution wid th (RBC) [Ratio]Ordered By: Odalis Saravia on 07-17-2024 Erythrocyte distribution width (RBC) [Entitic vol] 47.9 fL High 35.1-43.9 [facility] Erythrocyte distribution wid th ratioOrdered By: Odalis Saravia on 07-17-2024 Erythrocyte distribution width (RBC) [Ratio] 13.6 % 11.6-14.6 [facility] Erythrocyte distribution wid th standard deviationOrdered By: Odalis Saravia on 07-17-2024 Erythrocyte distribution width (RBC) [Ratio] 47.9 fl High 35.1-43.9 [facility] Estimated glomerular filtrat ion rate (GFR) AmericanOrdered By: Odalis Saravia on 07-17-2024 Estimated GFR (MDRD) Amer 56 mL/min Low >60 [facility] Comment on above: GFR Calc Glomerular filtration rate ( GFR) estimationOrdered By: Odalis Saravia on 07-17-2024 Estimated GFR (MDRD) Non-Af Amer 46 mL/min Low >60 [facility] Comment on above: Non- GFR Calc GFR/1.73 sq M.predicted among non-blacks MDRD (S/P/Bld) [Vol rate/Area] 46 mL/min/{1.73_m2} Low >60 [facility] Comment on above: Non- GFR Calc Glucose measurementOrdered B y: Odalis Saravia on 07-17-2024 Glucose [Mass/Vol] 85 mg/dL 74-106 [facility] Hematocrit Auto (Bld) [Volum e fraction]Ordered By: Odalis Saravia on 07-17-2024 Hematocrit (Bld) [Volume fraction] 36.1 % Low 37-47 [facility] Hemoglobin measurementOrdere d By: Odalis Saravia on 07-17-2024 Hemoglobin (Bld) [Mass/Vol] 12.0 g/dL 12.0-15.0 [facility] Immature granulocytes/100 WB C Auto (Bld)Ordered By: Odalis Saravia on 07-17-2024 Immature granulocytes/100 WBC (Bld) 0.300 % 0.0-0.9 [facility] Comment on above: IG% - Immature Granu locytes (promyelocytes, myelocytes and metamyelocytes) > 1% indicates that a LEFT SHIFT is Present. Lymphocytes Auto (Unsp spec) [#/Vol]Ordered By: Odalis Saravia on 07-17-2024 Lymphocytes (Bld) [#/Vol] 8.58 10*3/uL High 0.83-4.51 [facility] Lymphocytes/100 WBC Auto (Un sp spec)Ordered By: Odalis Saravia on 07-17-2024 Lymphocytes/100 WBC (Bld) 53.6 % High 19-41 [facility] MCV (mean corpuscular volume ) determinationOrdered By: Odalis Saravia on 07-17-2024 MCV (RBC) [Entitic vol] 95.3 fL 81-99 [facility] Mean corpuscular hemoglobin (MCH) determinationOrdered By: Odalis Saravia on 07-17-2024 MCH (RBC) [Entitic mass] 31.7 pg 27.0-32.0 [facility] Mean corpuscular hemoglobin concentration (MCHC) determinationOrdered By: Odalis Saravia on 07-17-2024 MCHC (RBC) [Mass/Vol] 33.2 g/dL 32-36 [facility] Mean platelet volume determi nationOrdered By: Odalis Saravia on 07-17-2024 Platelet mean volume (Bld) [Entitic vol] 10.0 fL 6.2-12.0 [facility] Monocyte percentageOrdered B y: Candicelavonnelaila Guermiascarlito on 07-17-2024 Monocytes/100 WBC (Bld) 9.2 % 0-10 [facility] Neutrophil percentageOrdered By: Odalis Guermiascarlito on 07-17-2024 Neutrophils/100 WBC (Bld) 25.6 % Low 47-70 [facility] Nucleated red blood cell per centageOrdered By: Odalis Saravia on 07-17-2024 Nucleated RBC/100 WBC (Bld) [Ratio] 0 % 0-5 [facility] Platelet countOrdered By: Ila Saravia on 07-17-2024 Platelets (Bld) [#/Vol] 335 10*3/uL 150-450 [facility] Potassium measurementOrdered By: marcy Saravia on 07-17-2024 Potassium [Moles/Vol] 4.2 mmol/L 3.5-5.1 [facility] RBC Auto (Bld) [#/Vol]Ordere d By: Odalis Saravia on 07-17-2024 RBC (Bld) [#/Vol] 3.79 10*6/uL Low 4.2-5.4 [facility] Reactive lymphocyte countOrd ered By: Odalis Saravia on 07-17-2024 Reactive Lymphocytes 1+ [facility] Serum anion gap measurementO rdered By: Odalis Saravia on 07-17-2024 Anion gap [Moles/Vol] 7 mmol/L 5-15 [facility] Serum or plasma calcium fran urement (mass/volume)Ordered By: Odalis Saravia on 07-17-2024 Calcium [Mass/Vol] 9.1 mg/dL 8.5-10.1 [facility] Serum or plasma creatinine m easurement (mass/volume)Ordered By: Odalis Saravia on 07-17-2024 Creatinine [Mass/Vol] 1.17 mg/dL High 0.55-1.02 [facility] Comment on above: The validity of the calculated GFR & GFRAA in patients over 70 years has not been determined. Clinical correlation is essential. Serum or plasma urea nitroge n measurement (mass/volume)Ordered By: Odalis Saravia on 07-17-2024 Urea nitrogen [Mass/Vol] 28 mg/dL High 7-18 [facility] Sodium levelOrdered By: Candice Saravia on 07-17-2024 Sodium [Moles/Vol] 139 mmol/L 136-145 [facility] White blood cell (WBC) count Ordered By: Odalis Saravia on 07-17-2024 WBC (Bld) [#/Vol] 16.0 10*3/uL High 4.4-11.0 [facility] [id number]-BC-[id number] DOrdered By: Carlito Saravia on 06-26-2024 Vitamin D 25-Hydroxy 40.6 ng/mL [facility] Comment on above: Vitamin D 25(OH) Sta tus Range Deficiency <20 ng/mL (50nmol/L) Insufficiency 20 - 30 ng/mL (50 - 75 nmol/L) Sufficiency 30 - 100 ng/mL (75 - 250 nmol/L) Toxicity >100 ng/mL (>250 nmol/L) Bilirubin directOrdered By: Odalis Saravia on 06-26-2024 Bilirubin.direct [Mass/Vol] 0.10 mg/dL 0.00-0.30 [facility] Bilirubin, totalOrdered By: Odalis Saravia on 06-26-2024 Bilirubin [Mass/Vol] 0.40 mg/dL 0.20-1.00 [facility] Comment on above: For patients on eltr ombopag therapy, use of Dimension [place] TBIL is not recommended. Laboratory - Chemistry and C hemistry - challengeOrdered By: Odalis Saravia on 06-26-2024 AST [Catalytic activity/Vol] 30 U/L 15-37 [facility] Serum globulin measurementOr dered By: Odalis Saravia on 06-26-2024 Globulin (S) [Mass/Vol] 3.3 g/dL 2.2-4.2 [facility] Serum or plasma alanine ga otransferase (ALT) measurementOrdered By: Odalis Saravia on 06-26-2024 ALT [Catalytic activity/Vol] 17 U/L 13-56 [facility] Serum or plasma albumin fran urement (mass/volume)Ordered By: Odalis Saravia on 06-26-2024 Albumin [Mass/Vol] 3.2 g/dL 3.2-5.0 [facility] Serum or plasma alkaline karthik sphatase measurementOrdered By: Odalis Saravia on 06-26-2024 ALP [Catalytic activity/Vol] 162 U/L High 45-117 [facility] Total proteinOrdered By: Curtis Saravia on 06-26-2024 Protein [Mass/Vol] 6.5 g/dL 6.4-8.2 [facility] Vitamin B12 measurementOrder ed By: Odalis Saravia on 06-26-2024 Cobalamin (Vitamin B12) [Mass/Vol] 963 pg/mL High 211-911 [facility] Absolute neutrophil countOrd ered By: Odalis Saravia on 06-19-2024 Neutrophils (Bld) [#/Vol] 4.2 10*3/uL 2.0-7.7 [facility] Acanthocyte detectionOrdered By: Odalis Saravia on 06-19-2024 Acanthocytes RARE [facility] Atypical lymphocyte percenta geOrdered By: Odalis Saravia on 06-19-2024 Atypical Lymphocytes 2+ % [facility] Basophil percentageOrdered B y: Odalis Saravia on 06-19-2024 Basophils/100 WBC (Bld) 3.0 % High 0-1 [facility] Blood urea nitrogen (BUN)/cr eatinine ratioOrdered By: Odalis Saravia on 06-19-2024 Urea nitrogen/Creatinine [Mass ratio] 26.6 mg/mg High 10-20 [facility] Carbon dioxide measurementOr dered By: Odalis Saravia on 06-19-2024 CO2 [Moles/Vol] 25.0 mmol/L 21.0-32.0 [facility] Chloride measurementOrdered By: Odalis Saravia on 06-19-2024 Chloride [Moles/Vol] 105 mmol/L 98-107 [facility] Eosinophil percentageOrdered By: Odalis Saravia on 06-19-2024 Eosinophils/100 WBC (Bld) 10.2 % High 0-5 [facility] Erythrocyte distribution wid th (RBC) [Ratio]Ordered By: Odalis Saravia on 06-19-2024 Erythrocyte distribution width (RBC) [Entitic vol] 48.9 fL High 35.1-43.9 [facility] Erythrocyte distribution wid th ratioOrdered By: Odalis Saravia on 06-19-2024 Erythrocyte distribution width (RBC) [Ratio] 13.7 % 11.6-14.6 [facility] Estimated glomerular filtrat ion rate (GFR) AmericanOrdered By: Odalis Saravia on 06-19-2024 Estimated GFR (MDRD) Amer 61 mL/min >60 [facility] Comment on above: GFR Calc Glomerular filtration rate ( GFR) estimationOrdered By: Odalis Saravia on 06-19-2024 Estimated GFR (MDRD) Non-Af Amer 50 mL/min Low >60 [facility] Comment on above: Non- GFR Calc Glucose measurementOrdered B y: Odalis Saravia on 06-19-2024 Glucose [Mass/Vol] 81 mg/dL 74-106 [facility] Hematocrit Auto (Bld) [Volum e fraction]Ordered By: Odalis Saravia on 06-19-2024 Hematocrit (Bld) [Volume fraction] 35.4 % Low 37-47 [facility] Hemoglobin measurementOrdere d By: Odalis Saravia on 06-19-2024 Hemoglobin (Bld) [Mass/Vol] 11.3 g/dL Low 12.0-15.0 [facility] [place] bodies LM Ql (B ld)Ordered By: Odalis Saravia on 06-19-2024 [place] Bodies 1+ [facility] Immature granulocytes/100 WB C Auto (Bld)Ordered By: Odalis Saravia on 06-19-2024 Immature granulocytes/100 WBC (Bld) 0.300 % 0.0-0.9 [facility] Comment on above: IG% - Immature Granu locytes (promyelocytes, myelocytes and metamyelocytes) > 1% indicates that a LEFT SHIFT is Present. Laboratory - Hematology and Cell countsOrdered By: Odalis Saravia on 06-19-2024 Anisocytosis Ql (Bld) 1+ [facility] Lymphocytes Auto (Unsp spec) [#/Vol]Ordered By: marcy Saravia on 06-19-2024 Lymphocytes (Bld) [#/Vol] 7.98 10*3/uL High 0.83-4.51 [facility] Lymphocytes/100 WBC Auto (Un sp spec)Ordered By: Odalis Saravia on 06-19-2024 Lymphocytes/100 WBC (Bld) 51.1 % High 19-41 [facility] MCV (mean corpuscular volume ) determinationOrdered By: Odalis Saravia on 06-19-2024 MCV (RBC) [Entitic vol] 96.7 fL 81-99 [facility] Mean corpuscular hemoglobin (MCH) determinationOrdered By: Odalis Saravia on 06-19-2024 MCH (RBC) [Entitic mass] 30.9 pg 27.0-32.0 [facility] Mean corpuscular hemoglobin concentration (MCHC) determinationOrdered By: marcy Saravia on 06-19-2024 MCHC (RBC) [Mass/Vol] 31.9 g/dL Low 32-36 [facility] Mean platelet volume determi nationOrdered By: bonniewilkes barrelaila Saravia on 06-19-2024 Platelet mean volume (Bld) [Entitic vol] 9.9 fL 6.2-12.0 [facility] Monocyte percentageOrdered B y: Odalis Saravia on 06-19-2024 Monocytes/100 WBC (Bld) 8.8 % 0-10 [facility] Neutrophil percentageOrdered By: [facility]arl[facility] on 06-19-2024 Neutrophils/100 WBC (Bld) 26.6 % Low 47-70 [facility] Nucleated red blood cell per centageOrdered By: bonniewilkes barrelaila Saravia on 06-19-2024 Nucleated RBC/100 WBC (Bld) [Ratio] 0 % 0-5 [facility] Ovalocytes LM Ql (Bld)Ordere d By: Odalis Saravia on 06-19-2024 Ovalocytes 1+ [facility] Platelet countOrdered By: Ila Saravia on 06-19-2024 Platelets (Bld) [#/Vol] 414 10*3/uL 150-450 [facility] Platelets LM Ql (Bld)Ordered By: Odalis Saravia on 06-19-2024 Platelet Estimate SLT INC ADEQ [facility] Potassium measurementOrdered By: Odalis Saravia on 06-19-2024 Potassium [Moles/Vol] 4.2 mmol/L 3.5-5.1 [facility] RBC Auto (Bld) [#/Vol]Ordere d By: Odalis Saravia on 06-19-2024 RBC (Bld) [#/Vol] 3.66 10*6/uL Low 4.2-5.4 [facility] Serum anion gap measurementO rdered By: Odalis Saravia on 06-19-2024 Anion gap [Moles/Vol] 7 mmol/L 5-15 [facility] Serum or plasma calcium fran urement (mass/volume)Ordered By: Odalis Saravia on 06-19-2024 Calcium [Mass/Vol] 8.9 mg/dL 8.5-10.1 [facility] Serum or plasma creatinine m easurement (mass/volume)Ordered By: Odalis Saravia on 06-19-2024 Creatinine [Mass/Vol] 1.09 mg/dL High 0.55-1.02 [facility] Comment on above: The validity of the calculated GFR & GFRAA in patients over 70 years has not been determined. Clinical correlation is essential. Serum or plasma urea nitroge n measurement (mass/volume)Ordered By: Odalis Saravia on 06-19-2024 Urea nitrogen [Mass/Vol] 29 mg/dL High 7-18 [facility] Sodium levelOrdered By: Candice Saravia on 06-19-2024 Sodium [Moles/Vol] 137 mmol/L 136-145 [facility] Target cells LM Ql (Bld)Orde red By: Odalis Saravia on 06-19-2024 Target Cells RARE [facility] White blood cell (WBC) count Ordered By: Odalis Saravia on 06-19-2024 WBC (Bld) [#/Vol] 15.6 10*3/uL High 4.4-11.0 [facility] High density lipoprotein (HD L) measurementOrdered By: Odalis Saravia on 06-10-2024 Cholesterol in HDL [Mass/Vol] 49 mg/dL >40 [facility] Comment on above: The drugs N-Acetylcy steine and Metamizole may falsely depress this assay. Reference Range HDL <40 mg/dL Low HDL Cholesterol HDL >or= 60 mg/dL High HDL Cholesterol Low density lipoprotein (LDL ) cholesterol measurementOrdered By: Odalis Saravia on 06-10-2024 Cholesterol in LDL [Mass/Vol] 127 mg/dL 0-130 [facility] Serum or plasma cholesterol measurement (mass/volume)Ordered By: Odalis Saravia on 06-10-2024 Cholesterol [Mass/Vol] 214 mg/dL High <200 [facility] Comment on above: <200 mg/dL Desirable 200-240 mg/dL Borderline >240 mg/dL High Risk Triglycerides measurementOrd ered By: Odalis Saravia on 06-10-2024 Triglyceride [Mass/Vol] 192 mg/dL <199 [facility] Comment on above: The drugs N-Acetylcy steine and Metamizole may falsely depress this assay.Serum Triglycerides Reference Interval Normal <150 mg/dL Borderline high 150 - 199 mg/dL High 200 - 499 mg/dL Very High > or = 500 mg/dL Very low density lipoprotein (VLDL) cholesterol measurementOrdered By: Odalis Saravia on 06-10-2024 VLDL Cholesterol 38 mg/dL 5-40 [facility] Absolute neutrophil countOrd ered By: Odalis Saravia on 05-22-2024 Neutrophils (Bld) [#/Vol] 3.4 10*3/uL 2.0-7.7 [facility] Basophil percentageOrdered B y: Odalis Saravia on 05-22-2024 Basophils/100 WBC (Bld) 2.7 % High 0-1 [facility] Blood urea nitrogen (BUN)/cr eatinine ratioOrdered By: Odalis Saravia on 05-22-2024 Urea nitrogen/Creatinine [Mass ratio] 24.3 mg/mg High 10-20 [facility] Carbon dioxide measurementOr dered By: Odalis Saravia on 05-22-2024 CO2 [Moles/Vol] 27.0 mmol/L 21.0-32.0 [facility] Chloride measurementOrdered By: Odalis Saravia on 05-22-2024 Chloride [Moles/Vol] 106 mmol/L 98-107 [facility] Eosinophil percentageOrdered By: Odalis Saravia on 05-22-2024 Eosinophils/100 WBC (Bld) 6.9 % High 0-5 [facility] Erythrocyte distribution wid th (RBC) [Ratio]Ordered By: Odalis Saravia on 05-22-2024 Erythrocyte distribution width (RBC) [Entitic vol] 49.4 fL High 35.1-43.9 [facility] Erythrocyte distribution wid th ratioOrdered By: Odalis Saravia on 05-22-2024 Erythrocyte distribution width (RBC) [Ratio] 13.9 % 11.6-14.6 [facility] Estimated glomerular filtrat ion rate (GFR) AmericanOrdered By: Odalis Saravia on 05-22-2024 Estimated GFR (MDRD) Amer 62 mL/min >60 [facility] Comment on above: GFR Calc Glomerular filtration rate ( GFR) estimationOrdered By: Odalis Saravia on 05-22-2024 Estimated GFR (MDRD) Non-Af Amer 51 mL/min Low >60 [facility] Comment on above: Non- GFR Calc Glucose measurementOrdered B y: Odalis Saravia on 05-22-2024 Glucose [Mass/Vol] 82 mg/dL 74-106 [facility] Hematocrit Auto (Bld) [Volum e fraction]Ordered By: Odalis Saravia on 05-22-2024 Hematocrit (Bld) [Volume fraction] 37.0 % 37-47 [facility] Hemoglobin measurementOrdere d By: Odalis Saravia on 05-22-2024 Hemoglobin (Bld) [Mass/Vol] 11.9 g/dL Low 12.0-15.0 [facility] Immature granulocytes/100 WB C Auto (Bld)Ordered By: Odalis Saravia on 05-22-2024 Immature granulocytes/100 WBC (Bld) 0.300 % 0.0-0.9 [facility] Comment on above: IG% - Immature Granu locytes (promyelocytes, myelocytes and metamyelocytes) > 1% indicates that a LEFT SHIFT is Present. Lymphocytes Auto (Unsp spec) [#/Vol]Ordered By: marcy Saravia on 05-22-2024 Lymphocytes (Bld) [#/Vol] 7.97 10*3/uL High 0.83-4.51 [facility] Lymphocytes/100 WBC Auto (Un sp spec)Ordered By: Odalis Saravia on 05-22-2024 Lymphocytes/100 WBC (Bld) 56.5 % High 19-41 [facility] MCV (mean corpuscular volume ) determinationOrdered By: Odalis Saravia on 05-22-2024 MCV (RBC) [Entitic vol] 95.9 fL 81-99 [facility] Mean corpuscular hemoglobin (MCH) determinationOrdered By: Odalis Saravia on 05-22-2024 MCH (RBC) [Entitic mass] 30.8 pg 27.0-32.0 [facility] Mean corpuscular hemoglobin concentration (MCHC) determinationOrdered By: Odalis Saravia on 05-22-2024 MCHC (RBC) [Mass/Vol] 32.2 g/dL 32-36 [facility] Mean platelet volume determi nationOrdered By: marcy Saravia on 05-22-2024 Platelet mean volume (Bld) [Entitic vol] 10.3 fL 6.2-12.0 [facility] Monocyte percentageOrdered B y: Odalis Saravia on 05-22-2024 Monocytes/100 WBC (Bld) 9.8 % 0-10 [facility] Neutrophil percentageOrdered By: Odalis Saravia on 05-22-2024 Neutrophils/100 WBC (Bld) 23.8 % Low 47-70 [facility] Nucleated red blood cell per centageOrdered By: Odalis Saravia on 05-22-2024 Nucleated RBC/100 WBC (Bld) [Ratio] 0 % 0-5 [facility] Platelet countOrdered By: Ila Saravia on 05-22-2024 Platelets (Bld) [#/Vol] 366 10*3/uL 150-450 [facility] Potassium measurementOrdered By: Odalis Saravia on 05-22-2024 Potassium [Moles/Vol] 4.5 mmol/L 3.5-5.1 [facility] Comment on above: Slight Hemolysis, Re sult may be falsely increased. RBC Auto (Bld) [#/Vol]Ordere d By: Odalis Saravia on 05-22-2024 RBC (Bld) [#/Vol] 3.86 10*6/uL Low 4.2-5.4 [facility] Reactive lymphocyte countOrd ered By: Odalis Saravia on 05-22-2024 Reactive Lymphocytes 1+ [facility] Serum anion gap measurementO rdered By: Odalis Saravia on 05-22-2024 Anion gap [Moles/Vol] 5 mmol/L 5-15 [facility] Serum or plasma calcium fran urement (mass/volume)Ordered By: Odalis Saravia on 05-22-2024 Calcium [Mass/Vol] 9.2 mg/dL 8.5-10.1 [facility] Serum or plasma creatinine m easurement (mass/volume)Ordered By: Odalis Saravia on 05-22-2024 Creatinine [Mass/Vol] 1.07 mg/dL High 0.55-1.02 [facility] Comment on above: The validity of the calculated GFR & GFRAA in patients over 70 years has not been determined. Clinical correlation is essential. Serum or plasma urea nitroge n measurement (mass/volume)Ordered By: Odalis Saravia on 05-22-2024 Urea nitrogen [Mass/Vol] 26 mg/dL High 7-18 [facility] Sodium levelOrdered By: Candice Saravia on 05-22-2024 Sodium [Moles/Vol] 138 mmol/L 136-145 [facility] White blood cell (WBC) count Ordered By: Odalis Saravia on 05-22-2024 WBC (Bld) [#/Vol] 14.1 10*3/uL High 4.4-11.0 [facility] Basic Metabolic Profile (BMP )on 05-14-2024 BUN/CRE 22.9 RATIO High 10-20 [facility] Comment on above: Performed By: #### L 500.2500, L100.0100 #### [facility] [address] [place], [address] CA,Total 9.3 mg/dL Normal 8.5-10.1 [facility] Comment on above: Performed By: #### L 500.2500, L100.0100 #### [facility] [address] [place], [address] Chloride [Moles/Vol] 107 mmol/L Normal 98-107 [facility] Comment on above: Performed By: #### L 500.2500, L100.0100 #### [facility] [address] [place], [address] CO2 [Moles/Vol] 25.0 mmol/L Normal 21.0-32.0 [facility] Comment on above: Performed By: #### L 500.2500, L100.0100 #### [facility] [address] [place], [address] Creatinine [Mass/Vol] 1.18 mg/dL High 0.55-1.02 [facility] Comment on above: Result Comment: The validity of the calculated GFR GFRAA in patients over 70 years has not been determined. Clinical correlation is essential. Performed By: #### L 500.2500, L100.0100 #### [facility] [address] [place], [address] ECRCL 24.13 ml/min Normal [facility] Comment on above: Performed By: #### L 500.2500, L100.0100 #### [facility] [address] [place], [address] EST GFR - AA 56 mL/min Low >60 [facility] Comment on above: Result Comment: Afri can Peruvian GFR Calc Performed By: #### L 500.2500, L100.0100 #### [facility] [address] [place], [address] GAP 5 Normal 5-15 [facility] Comment on above: Performed By: #### L 500.2500, L100.0100 #### [facility] [address] [place], [address] GFR/1.73 sq M.predicted among non-blacks MDRD (S/P/Bld) [Vol rate/Area] 46 mL/min/{1.73_m2} Low >60 [facility] Comment on above: Result Comment: Non- GFR Calc Performed By: #### L 500.2500, L100.0100 #### [facility] [address] [place], [address] Glucose [Mass/Vol] 96 mg/dL Normal 74-106 [facility] Comment on above: Performed By: #### L 500.2500, L100.0100 #### [facility] [address] [place], [address] Potassium [Moles/Vol] 4.6 mmol/L Normal 3.5-5.1 [facility] Comment on above: Result Comment: Mode rate Hemolysis, Result may be falsely increased. Performed By: #### L 500.2500, L100.0100 #### [facility] [address] [place], [address] Sodium [Moles/Vol] 136 mmol/L Normal 136-145 [facility] Comment on above: Performed By: #### L 500.2500, L100.0100 #### [facility] [address] [place], [address] Urea nitrogen [Mass/Vol] 27 mg/dL High 7- [facility] Comment on above: Performed By: #### L 500.2500, L100.0100 #### [facility] [address] [place], [address] Brain/Head without Contrasto n 05-14-2024 Brain/Head without Contrast [facility] Services [address] [place] [address] Brain/Head without Contrast MR#: [id number] Acct: [id number] Name: KAYLENE HAYNES Rep #: [id number] : 1935 F 88 From: Dheeraj Castillo MD PCP: Dr. Howard Zimmerman MD Status: [facility] Study: Brain/Head without Contrast Date of Exam: 04/19 01/08 Exam# [id number] Ordering Dr: Joel Mccarthy DO [id number] EXAM: CT HEAD WITHOUT INTRAVENOUS CONTRAST CLINICAL [...] Joel Mccarthy DO; Dr. Howard Zimmerman MD Design Director: Signed Normal [facility] CBC W/Diff, Automatedon 11- BITE CELL RARE Normal [facility] Comment on above: Performed By: #### L 500.2500, L100.0100 #### [facility] [address] [place], [address] SCHISTOCYTES RARE Normal [facility] Comment on above: Performed By: #### L 500.2500, L100.0100 #### [facility] [address] [place], [address] TARGET CELLS RARE Normal [facility] Comment on above: Performed By: #### L 500.2500, L100.0100 #### [facility] [address] [place], [address] ACANTHOCYTE 1+ Normal [facility] Comment on above: Performed By: #### L 500.2500, L100.0100 #### [facility] [address] [place], [address] KRISTINE CELLS 1+ Normal [facility] Comment on above: Performed By: #### L 500.2500, L100.0100 #### [facility] [address] [place], [address] PLT EST ADEQUATE Normal ADEQ [facility] Comment on above: Performed By: #### L 500.2500, L100.0100 #### [facility] [address] [place], [address] ATYPICAL LYMPH 1+ Normal [facility] Comment on above: Performed By: #### L 500.2500, L100.0100 #### [facility] [address] [place], [address] Emergency Department Summary on 05-14-2024 Emergency Department Summary [facility] Medical Records Department [address] [place] [address] Emergency Department Summary 05/14/24 MR#: [id number] Acct: [id number] Name: KAYLENE HAYNES Rep #: [id number] : 1935 88 From: Joel Mccarthy DO [...] of Parkinson's disease. Patient was found by group home staff with abnormal head movements. Staff reports patient was able to stop voluntarily. Staff also reports patient had recent unwitnessed fall. Patient was referred to the emergency department for concern for intracranial bleeding. Patient states she does not know why she is here. Patient denies any tremors. Patient denies any chest pain or shortness of breath. Patient admits to a mild sore throat. [facility] Medical History Dementia in other diseases classified [...] no JVD (more content not included)... Normal [facility] Urinalysis, Completeon 05-14 EPI,SQUAMOUS 0-5 SEEN Normal -10 [facility] Comment on above: Order Comment: CLEAN CATCH Performed By: #### L 400.0001 #### [facility] [address] [place], [address] WBC 0-5 SEEN Normal 0-5 [facility] Comment on above: Order Comment: CLEAN CATCH Performed By: #### L 400.0001 #### [facility] [address] [facility] [address] BACTERIA 0 SEEN Normal None Seen [facility] Comment on above: Order Comment: CLEAN CATCH Performed By: #### L 400.0001 #### [facility] [address] [place], [address] Mucus Ql (Urine sed) 0 SEEN Normal [facility] Comment on above: Order Comment: CLEAN CATCH Performed By: #### L 400.0001 #### [facility] [address] [place], [address] RBC 0 SEEN Normal 0-5 [facility] Comment on above: Order Comment: CLEAN CATCH Performed By: #### L 400.0001 #### [facility] [address] [place], [address] OV 04-21-2024 CNOV Office Visit (NRMDN) KAYLENE HAYNES ([id number]) 1935 F Date Time Provider Department 04/21/24 11:00 [facility] During your visit today, we recorded the following information about you: Weight 44.2 kg Selvin Felder MD 04/21/2024 7:56 PM Signed [facility] - FOLLOW UP EVALUATION Howard Zimmerman MD [address] [facility] [address] [facility] [address] I had the pleasure of seeing Ms. 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 Acetaminophen 500 mg cap Take by mouth. 1000 TID for pain (more content not included)... 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 [facility] During your visit today, we recorded the [...] by MARIA EUGENIA VIRGEN on 04/21/24 Normal [facility] Absolute lymphocyte countOrd ered By: Odalis Saravia on 10-17-2023 Lymphocytes Auto (Unsp spec) [#/Vol] 6.70 10*3/uL 0.83-4.51 [facility] Automated lymphocyte count a s percentage of total leukocytesOrdered By: Odalis Saravia on 10-17-2023 Lymphocytes/100 WBC Auto (Unsp spec) 46.1 % 19-41 [facility] Basophil percentageOrdered B y: Odalis Saravia on 10-17-2023 Basophil percentage 10.7 g/dL 12.0-15.0 [facility] Basophil percentage 91 mg/dL 74-106 [facility] Basophil percentage 140 mmol/L 136-145 [facility] Basophil percentage 4.2 mmol/L 3.5-5.1 [facility] Basophil percentage 108 mmol/L 98-107 [facility] Basophils (Bld) [#/Vol] 14.5 10*3/uL 4.4-11.0 [facility] Basophils (Bld) [#/Vol] 5.4 10*3/uL 2.0-7.7 [facility] Basophils/100 WBC (Bld) 37.3 % 47-70 [facility] Basophils/100 WBC (Bld) 10.3 % 0-10 [facility] Basophils/100 WBC (Bld) 3.5 % 0-5 [facility] Basophils/100 WBC (Bld) 2.5 % 0-1 [facility] Chloride [Moles/Vol] 108 mmol/L 98-107 [facility] Eosinophils/100 WBC (Bld) 3.5 % 0-5 [facility] Glucose [Mass/Vol] 91 mg/dL 74-106 [facility] Hemoglobin (Bld) [Mass/Vol] 10.7 g/dL 12.0-15.0 [facility] Monocytes/100 WBC (Bld) 10.3 % 0-10 [facility] Neutrophils (Bld) [#/Vol] 5.4 10*3/uL 2.0-7.7 [facility] Neutrophils/100 WBC (Bld) 37.3 % 47-70 [facility] Potassium [Moles/Vol] 4.2 mmol/L 3.5-5.1 [facility] Sodium [Moles/Vol] 140 mmol/L 136-145 [facility] WBC (Bld) [#/Vol] 14.5 10*3/uL 4.4-11.0 [facility] Blood platelet adequacy dete ction by light microscopyOrdered By: Odalis Saravia on 10-17-2023 Platelets LM Ql (Bld) ADEQUATE ADEQ [facility] Determination of erythrocyte mean corpuscular volume (MCV)Ordered By: Odalis Saravia on 10-17-2023 MCV (RBC) [Entitic vol] 93.8 fL 81-99 [facility] Erythrocyte distribution wid th ratioOrdered By: Odalis Saravia on 10-17-2023 Erythrocyte distribution width (RBC) [Ratio] 14.1 % 11.6-14.6 [facility] Erythrocyte distribution wid th standard deviationOrdered By: Odalis Saravia on 10-17-2023 Erythrocyte distribution width (RBC) [Entitic vol] 49.1 fL 35.1-43.9 [facility] Hematocrit Auto (Bld) [Volum e fraction]Ordered By: Odalis Saravia on 10-17-2023 Hematocrit (Bld) [Volume fraction] 33.4 % 37-47 [facility] Immature granulocytes/100 WB C Auto (Bld)Ordered By: Odalis Saravia on 10-17-2023 Immature granulocytes/100 WBC (Bld) 0.300 % 0.0-0.9 [facility] Comment on above: IG% - Immature Granu locytes (promyelocytes, myelocytes and metamyelocytes) > 1% indicates that a LEFT SHIFT is Present. Laboratory - Chemistry and C hemistry - challengeOrdered By: Odalis Saravia on 10-17-2023 CO2 [Moles/Vol] 31.0 mmol/L 21.0-32.0 [facility] Urea nitrogen/Creatinine [Mass ratio] 21.9 mg/mg 10-20 [facility] - Hematology and Cell countsOrdered By: Odalis Saravia on 10-17-2023 MCH (RBC) [Entitic mass] 30.1 pg 27.0-32.0 [facility] MCHC (RBC) [Mass/Vol] 32.0 g/dL 32-36 [facility] Nucleated RBC/100 WBC (Bld) [Ratio] 0 % 0-5 [facility] Platelet mean volume (Bld) [Entitic vol] 12.0 fL 6.2-12.0 [facility] No Panel InformationOrdered By: Odalis Saravia on 10-17-2023 Estimated GFR (MDRD) Amer 58 mL/min >60 [facility] Comment on above: GFR Calc Estimated GFR (MDRD) Non-Af Amer 48 mL/min >60 [facility] Comment on above: Non- GFR Calc Platelet Count See comment 150-450 [facility] Comment on above: Please note: For thi s sample, a platelet estimate is provided rather than a platelet count due to platelet clumping. Other parameters associated with this sample are not affected by platelet clumping. If a more accurate platelet count is required, a redraw of the patient will be necessary. 30.1 pg 27.0-32.0 [facility] 32.0 g/dL 32-36 [facility] See comment 150-450 [facility] 12.0 fl 6.2-12.0 [facility] 0 % 0-5 [facility] 48 mL/min >60 [facility] 58 mL/min >60 [facility] 21.9 RATIO 10-20 [facility] 31.0 mmol/L 21.0-32.0 [facility] RBC Auto (Bld) [#/Vol]Ordere d By: Odalis Saravia on 10-17-2023 RBC (Bld) [#/Vol] 3.56 10*6/uL 4.2-5.4 [facility] Serum or plasma calcium fran urement (mass/volume)Ordered By: Odalis Saravia on 10-17-2023 Calcium [Mass/Vol] 8.7 mg/dL 8.5-10.1 [facility] Serum or plasma creatinine m easurement (mass/volume)Ordered By: Odalis Saravia on 10-17-2023 Creatinine [Mass/Vol] 1.14 mg/dL 0.55-1.02 [facility] Comment on above: The validity of the calculated GFR & GFRAA in patients over 70 years has not been determined. Clinical correlation is essential. Serum or plasma urea nitroge n measurement (mass/volume)Ordered By: Odalis Saravia on 10-17-2023 Urea nitrogen [Mass/Vol] 25 mg/dL 7-18 [facility] Thin prep Papanicolaou smear with manual screeningOrdered By: Odalis Saravia on 10-17-2023 Thin prep Papanicolaou smear with manual screening 1 5-15 [facility] Absolute lymphocyte countOrd ered By: Odalis Saravia on 10-05-2023 Lymphocytes Auto (Unsp spec) [#/Vol] 5.57 10*3/uL 0.83-4.51 [facility] Automated lymphocyte count a s percentage of total leukocytesOrdered By: Odalis Saravia on 10-05-2023 Lymphocytes/100 WBC Auto (Unsp spec) 45.8 % 19-41 [facility] Basophil percentageOrdered B y: Odalis Saravia on 10-05-2023 Basophil percentage 10.9 g/dL 12.0-15.0 [facility] Basophil percentage 90 mg/dL 74-106 [facility] Basophil percentage 6.1 g/dL 6.4-8.2 [facility] Basophil percentage 0.30 mg/dL 0.20-1.00 [facility] Basophil percentage 130 mg/dL <200 [facility] Basophil percentage 139 mg/dL <199 [facility] Basophil percentage 140 mmol/L 136-145 [facility] Basophil percentage 4.1 mmol/L 3.5-5.1 [facility] Basophil percentage 104 mmol/L 98-107 [facility] Basophils (Bld) [#/Vol] 12.2 10*3/uL 4.4-11.0 [facility] Basophils (Bld) [#/Vol] 4.4 10*3/uL 2.0-7.7 [facility] Basophils/100 WBC (Bld) 36.4 % 47-70 [facility] Basophils/100 WBC (Bld) 11.1 % 0-10 [facility] Basophils/100 WBC (Bld) 4.0 % 0-5 [facility] Basophils/100 WBC (Bld) 2.5 % 0-1 [facility] Bilirubin [Mass/Vol] 0.30 mg/dL 0.20-1.00 [facility] Comment on above: For patients on eltr ombopag therapy, use of Dimension [place] TBIL is not recommended. Chloride [Moles/Vol] 104 mmol/L 98-107 [facility] Cholesterol [Mass/Vol] 130 mg/dL <200 [facility] Comment on above: <200 mg/dL Desirable 200-240 mg/dL Borderline >240 mg/dL High Risk Eosinophils/100 WBC (Bld) 4.0 % 0-5 [facility] Glucose [Mass/Vol] 90 mg/dL 74-106 [facility] Hemoglobin (Bld) [Mass/Vol] 10.9 g/dL 12.0-15.0 [facility] Monocytes/100 WBC (Bld) 11.1 % 0-10 [facility] Neutrophils (Bld) [#/Vol] 4.4 10*3/uL 2.0-7.7 [facility] Neutrophils/100 WBC (Bld) 36.4 % 47-70 [facility] Potassium [Moles/Vol] 4.1 mmol/L 3.5-5.1 [facility] Protein [Mass/Vol] 6.1 g/dL 6.4-8.2 [facility] Sodium [Moles/Vol] 140 mmol/L 136-145 [facility] Triglyceride [Mass/Vol] 139 mg/dL <199 [facility] Comment on above: The drugs N-Acetylcy steine and Metamizole may falsely depress this assay.Serum Triglycerides Reference Interval Normal <150 mg/dL Borderline high 150 - 199 mg/dL High 200 - 499 mg/dL Very High > or = 500 mg/dL WBC (Bld) [#/Vol] 12.2 10*3/uL 4.4-11.0 [facility] Blood manual differential co mment interpretation (narrative result)Ordered By: Odalis Saravia on 10-05-2023 Manual differential comment Porter (Bld) [Interp] SCANNED [facility] Determination of erythrocyte mean corpuscular volume (MCV)Ordered By: Odalis Saravia on 10-05-2023 MCV (RBC) [Entitic vol] 94.2 fL 81-99 [facility] Erythrocyte distribution wid th ratioOrdered By: Odalis Saravia on 10-05-2023 Erythrocyte distribution width (RBC) [Ratio] 13.6 % 11.6-14.6 [facility] Erythrocyte distribution wid th standard deviationOrdered By: [facility] Saravia on 10-05-2023 Erythrocyte distribution width (RBC) [Entitic vol] 46.8 fL 35.1-43.9 [facility] Hematocrit Auto (Bld) [Volum e fraction]Ordered By: bonniewilkes barrelaila Saravia on 10-05-2023 Hematocrit (Bld) [Volume fraction] 33.8 % 37-47 [facility] Immature granulocytes/100 WB C Auto (Bld)Ordered By: [facility] Riccardocarlito on 10-05-2023 Immature granulocytes/100 WBC (Bld) 0.200 % 0.0-0.9 [facility] Comment on above: IG% - Immature Granu locytes (promyelocytes, myelocytes and metamyelocytes) > 1% indicates that a LEFT SHIFT is Present. Laboratory - Chemistry and C hemistry - challengeOrdered By: [facility] on 10-05-2023 Albumin/Globulin [Mass ratio] 1.0 {ratio} 0.9-2.4 [facility] ALP [Catalytic activity/Vol] 97 U/L 45-117 [facility] ALT [Catalytic activity/Vol] 14 U/L 13-56 [facility] Cholesterol in HDL [Mass/Vol] 47 mg/dL >40 [facility] Comment on above: The drugs N-Acetylcy steine and Metamizole may falsely depress this assay. Reference Range HDL <40 mg/dL Low HDL Cholesterol HDL >or= 60 mg/dL High HDL Cholesterol Cholesterol in LDL [Mass/Vol] 55 mg/dL 0-130 [facility] CO2 [Moles/Vol] 30.0 mmol/L 21.0-32.0 [facility] Globulin (S) [Mass/Vol] 3.1 g/dL 2.2-4.2 [facility] Urea nitrogen/Creatinine [Mass ratio] 28.2 mg/mg 10-20 [facility] - Hematology and Cell countsOrdered By: [facility] Gucarlito on 10-05-2023 MCH (RBC) [Entitic mass] 30.4 pg 27.0-32.0 [facility] MCHC (RBC) [Mass/Vol] 32.2 g/dL 32-36 [facility] Nucleated RBC/100 WBC (Bld) [Ratio] 0 % 0-5 [facility] Platelet mean volume (Bld) [Entitic vol] 10.6 fL 6.2-12.0 [facility] Platelets (Bld) [#/Vol] 346 10*3/uL 150-450 [facility] No Panel InformationOrdered By: Odalis Saravia on 10-05-2023 Estimated GFR (MDRD) Amer 65 mL/min >60 [facility] Comment on above: GFR Calc Estimated GFR (MDRD) Non-Af Amer 54 mL/min >60 [facility] Comment on above: Non- GFR Calc Reactive Lymphocytes 1+ [facility] Vitamin B12 Level > 2000 pg/mL [facility] Vitamin D 25-Hydroxy 60.0 ng/mL [facility] Comment on above: Vitamin D 25(OH) Sta tus Range Deficiency <20 ng/mL (50nmol/L) Insufficiency 20 - 30 ng/mL (50 - 75 nmol/L) Sufficiency 30 - 100 ng/mL (75 - 250 nmol/L) Toxicity >100 ng/mL (>250 nmol/L) VLDL Cholesterol 28 mg/dL 5-40 [facility] 30.4 pg 27.0-32.0 [facility] 32.2 g/dL 32-36 [facility] 346 K/mm3 150-450 [facility] 10.6 fl 6.2-12.0 [facility] 0 % 0-5 [facility] 1+ [facility] 54 mL/min >60 [facility] 65 mL/min >60 [facility] 28.2 RATIO 10-20 [facility] 3.1 g/dL 2.2-4.2 [facility] 1.0 RATIO 0.9-2.4 [facility] 97 U/L 45-117 [facility] 14 U/L 13-56 [facility] 30.0 mmol/L 21.0-32.0 [facility] 47 mg/dL >40 [facility] 55 mg/dL 0-130 [facility] 28 mg/dL 5-40 [facility] > 2000 pg/mL [facility] 60.0 ng/mL [facility] RBC Auto (Bld) [#/Vol]Ordere d By: Odalis Saravia on 10-05-2023 RBC (Bld) [#/Vol] 3.59 10*6/uL 4.2-5.4 [facility] Serum or plasma calcium fran urement (mass/volume)Ordered By: Odalis Saravia on 10-05-2023 Calcium [Mass/Vol] 8.7 mg/dL 8.5-10.1 [facility] Serum or plasma creatinine m easurement (mass/volume)Ordered By: Odalis Saravia on 10-05-2023 Creatinine [Mass/Vol] 1.03 mg/dL 0.55-1.02 [facility] Comment on above: The validity of the calculated GFR & GFRAA in patients over 70 years has not been determined. Clinical correlation is essential. Serum or plasma urea nitroge n measurement (mass/volume)Ordered By: Odalis Saravia on 10-05-2023 Urea nitrogen [Mass/Vol] 29 mg/dL 7-18 [facility] Thin prep Papanicolaou smear with manual screeningOrdered By: Odalis Saravia on 10-05-2023 Thin prep Papanicolaou smear with manual screening 3.0 g/dL 3.2-5.0 [facility] Thin prep Papanicolaou smear with manual screening 38 U/L 15-37 [facility] Thin prep Papanicolaou smear with manual screening 6 5-15 [facility] Absolute lymphocyte countOrd ered By: Howard Zimmerman on 09-29-2023 Lymphocytes Auto (Unsp spec) [#/Vol] 7.05 10*3/uL 0.83-4.51 [facility] Automated lymphocyte count a s percentage of total leukocytesOrdered By: Howard Zimmerman on 09-29-2023 Lymphocytes/100 WBC Auto (Unsp spec) 42.7 % 19-41 [facility] Basophil percentageOrdered B y: Howard Zimmerman on 09-29-2023 Basophil percentage 12.6 g/dL 12.0-15.0 [facility] Basophils (Bld) [#/Vol] 16.5 10*3/uL 4.4-11.0 [facility] Basophils (Bld) [#/Vol] 7.0 10*3/uL 2.0-7.7 [facility] Basophils/100 WBC (Bld) 2.5 % 0-1 [facility] Basophils/100 WBC (Bld) 42.3 % 47-70 [facility] Basophils/100 WBC (Bld) 9.2 % 0-10 [facility] Basophils/100 WBC (Bld) 2.8 % 0-5 [facility] Eosinophils/100 WBC (Bld) 2.8 % 0-5 [facility] [facility] (Bld) [Mass/Vol] 12.6 g/dL 12.0-15.0 [facility] Monocytes/100 WBC (Bld) 9.2 % 0-10 [facility] Neutrophils (Bld) [#/Vol] 7.0 10*3/uL 2.0-7.7 [facility] Neutrophils/100 WBC (Bld) 42.3 % 47-70 [facility] WBC (Bld) [#/Vol] 16.5 10*3/uL 4.4-11.0 [facility] Blood manual differential co mment interpretation (narrative result)Ordered By: Howard Zimmerman on 09-29-2023 Manual differential comment Porter (Bld) [Interp] SCANNED [facility] Determination of erythrocyte mean corpuscular volume (MCV)Ordered By: Howard Zimmerman on 09-29-2023 MCV (RBC) [Entitic vol] 94.0 fL 81-99 [facility] Erythrocyte distribution wid th ratioOrdered By: Howard Zimmerman on 09-29-2023 Erythrocyte distribution width (RBC) [Ratio] 13.5 % 11.6-14.6 [facility] Erythrocyte distribution wid th standard deviationOrdered By: Howard Zimmerman on 09-29-2023 Erythrocyte distribution width (RBC) [Entitic vol] 46.6 fL 35.1-43.9 [facility] Hematocrit Auto (Bld) [Volum e fraction]Ordered By: Howard Zimmerman on 09-29-2023 Hematocrit (Bld) [Volume fraction] 40.4 % 37-47 [facility] Immature granulocytes/100 WB C Auto (Bld)Ordered By: Howard Zimmerman on 09-29-2023 Immature granulocytes/100 WBC (Bld) 0.500 % 0.0-0.9 [facility] Comment on above: IG% - Immature Granu locytes (promyelocytes, myelocytes and metamyelocytes) > 1% indicates that a LEFT SHIFT is Present. Laboratory - Hematology and Cell countsOrdered By: Howard Zimmerman on 09-29-2023 MCH (RBC) [Entitic mass] 29.3 pg 27.0-32.0 [facility] MCHC (RBC) [Mass/Vol] 31.2 g/dL 32-36 [facility] Nucleated RBC/100 WBC (Bld) [Ratio] 0 % 0-5 [facility] Platelet mean volume (Bld) [Entitic vol] 10.0 fL 6.2-12.0 [facility] Platelets (Bld) [#/Vol] 410 10*3/uL 150-450 [facility] No Panel InformationOrdered By: Howard Zimmerman on 09-29-2023 Reactive Lymphocytes 1+ [facility] 29.3 pg 27.0-32.0 [facility] 31.2 g/dL 32-36 [facility] 410 K/mm3 150-450 [facility] 10.0 fl 6.2-12.0 [facility] 0 % 0-5 [facility] 1+ [facility] RBC Auto (Bld) [#/Vol]Ordere d By: Howard Zimmerman on 09-29-2023 RBC (Bld) [#/Vol] 4.30 10*6/uL 4.2-5.4 [facility] Review by pathologistOrdered By: Howard Zimmerman on 09-29-2023 Pathologist review Porter (Unsp spec) [Interp] Reviewed [facility] Comment on above: Previous reported re sult: Heide mckenna Edited by: VIAN on 10/01/23:1345Leukocytosis.Clinical correlation necessary.Nilton Flaherty M.D. 10/01/23 AMENDED REPORT 10/01/23 1345 PATH REV previously reported as: Heide mckenna Basophil percentageOrdered B y: Howard Zimmerman on 09-28-2023 Basophil percentage 83 mg/dL 74-106 [facility] Basophil percentage 138 mmol/L 136-145 [facility] Basophil percentage 4.3 mmol/L 3.5-5.1 [facility] Basophil percentage 105 mmol/L 98-107 [facility] Chloride [Moles/Vol] 105 mmol/L 98-107 [facility] Glucose [Mass/Vol] 83 mg/dL 74-106 [facility] Potassium [Moles/Vol] 4.3 mmol/L 3.5-5.1 [facility] Sodium [Moles/Vol] 138 mmol/L 136-145 [facility] Laboratory - Chemistry and C hemistry - challengeOrdered By: Howard Zimmerman on 09-28-2023 CO2 [Moles/Vol] 31.0 mmol/L 21.0-32.0 [facility] Urea nitrogen/Creatinine [Mass ratio] 27.0 mg/mg 10- [facility] No Panel InformationOrdered By: Howard Zimmerman on 09-28-2023 Estimated Creatinine Clearance Calc 21.31 ml/min [facility] Estimated GFR (MDRD) Amer 54 mL/min >60 [facility] Comment on above: GFR Calc Estimated GFR (MDRD) Non-Af Amer 44 mL/min >60 [facility] Comment on above: Non- GFR Calc 44 mL/min >60 [facility] 54 mL/min >60 [facility] 21.31 ml/min [facility] 27.0 RATIO 04-06 [facility] 31.0 mmol/L 21.0-32.0 [facility] Serum or plasma calcium fran urement (mass/volume)Ordered By: Howard Zimmerman on 09-28-2023 Calcium [Mass/Vol] 8.7 mg/dL 8.5-10.1 [facility] Serum or plasma creatinine m easurement (mass/volume)Ordered By: Howard Zimmerman on 09-28-2023 Creatinine [Mass/Vol] 1.22 mg/dL 0.55-1.02 [facility] Comment on above: The validity of the calculated GFR & GFRAA in patients over 70 years has not been determined. Clinical correlation is essential. Serum or plasma urea nitroge n measurement (mass/volume)Ordered By: Howard Zimmerman on 09-28-2023 Urea nitrogen [Mass/Vol] 33 mg/dL 7-18 [facility] Thin prep Papanicolaou smear with manual screeningOrdered By: Howard Zimmerman on 09-28-2023 Thin prep Papanicolaou smear with manual screening 2 5-15 [facility] Absolute lymphocyte countOrd ered By: Maame Pinon on 09-11-2023 Lymphocytes Auto (Unsp spec) [#/Vol] 3.47 10*3/uL 0.83-4.51 [facility] Automated lymphocyte count a s percentage of total leukocytesOrdered By: Maame Pinon on 09-11-2023 Lymphocytes/100 WBC Auto (Unsp spec) 38.3 % 19-41 [facility] Basophil percentageOrdered B y: Maame Pinon on 09-11-2023 Basophil percentage 13.1 g/dL 12.0-15.0 [facility] Basophils (Bld) [#/Vol] 9.1 10*3/uL 4.4-11.0 [facility] Basophils (Bld) [#/Vol] 4.6 10*3/uL 2.0-7.7 [facility] Basophils/100 WBC (Bld) 0.3 % 0-1 [facility] Basophils/100 WBC (Bld) 51.1 % 47-70 [facility] Basophils/100 WBC (Bld) 9.0 % 0-10 [facility] Basophils/100 WBC (Bld) 1.0 % 0-5 [facility] Eosinophils/100 WBC (Bld) 1.0 % 0-5 [facility] Hemoglobin (Bld) [Mass/Vol] 13.1 g/dL 12.0-15.0 [facility] Monocytes/100 WBC (Bld) 9.0 % 0-10 [facility] Neutrophils (Bld) [#/Vol] 4.6 10*3/uL 2.0-7.7 [facility] Neutrophils/100 WBC (Bld) 51.1 % 47-70 [facility] WBC (Bld) [#/Vol] 9.1 10*3/uL 4.4-11.0 [facility] Determination of erythrocyte mean corpuscular volume (MCV)Ordered By: Maame Pinon on 09-11-2023 MCV (RBC) [Entitic vol] 92.1 fL 81-99 [facility] Erythrocyte distribution wid th ratioOrdered By: Maame Pinon on 09-11-2023 Erythrocyte distribution width (RBC) [Ratio] 12.2 % 11.6-14.6 [facility] Erythrocyte distribution wid th standard deviationOrdered By: Maame Pinon on 09-11-2023 Erythrocyte distribution width (RBC) [Entitic vol] 41.3 fL 35.1-43.9 [facility] Hematocrit Auto (Bld) [Volum e fraction]Ordered By: Maame Pinon on 09-11-2023 Hematocrit (Bld) [Volume fraction] 38.6 % 37-47 [facility] Immature granulocytes/100 WB C Auto (Bld)Ordered By: Maame Pinon on 09-11-2023 Immature granulocytes/100 WBC (Bld) 0.300 % 0.0-0.9 [facility] Comment on above: IG% - Immature Granu locytes (promyelocytes, myelocytes and metamyelocytes) > 1% indicates that a LEFT SHIFT is Present. Laboratory - Hematology and Cell countsOrdered By: Maame Pinon on 09-11-2023 MCH (RBC) [Entitic mass] 31.3 pg 27.0-32.0 [facility] MCHC (RBC) [Mass/Vol] 33.9 g/dL 32-36 [facility] Comment on above: Delta: 31.8 on 09/09-0555 Nucleated RBC/100 WBC (Bld) [Ratio] 0 % 0-5 [facility] Platelet mean volume (Bld) [Entitic vol] 9.6 fL 6.2-12.0 [facility] Platelets (Bld) [#/Vol] 297 10*3/uL 150-450 [facility] No Panel InformationOrdered By: Maame Pinon on 09-11-2023 31.3 pg 27.0-32.0 [facility] 33.9 g/dL 32-36 [facility] 297 K/mm3 150-450 [facility] 9.6 fl 6.2-12.0 [facility] 0 % 0-5 [facility] RBC Auto (Bld) [#/Vol]Ordere d By: Maame Pinon on 09-11-2023 RBC (Bld) [#/Vol] 4.19 10*6/uL 4.2-5.4 [facility] Basophil percentageOrdered B y: Maame Pinon on 09-10-2023 Basophil percentage 3.1 mg/dL 2.5-4.9 [facility] Basophil percentage 95 mg/dL 74-106 [facility] Basophil percentage 6.0 g/dL 6.4-8.2 [facility] Basophil percentage 0.50 mg/dL 0.20-1.00 [facility] Basophil percentage 140 mmol/L 136-145 [facility] Basophil percentage 3.8 mmol/L 3.5-5.1 [facility] Basophil percentage 109 mmol/L 98-107 [facility] Bilirubin [Mass/Vol] 0.50 mg/dL 0.20-1.00 [facility] Comment on above: For patients on eltr ombopag therapy, use of Dimension [place] TBIL is not recommended. Chloride [Moles/Vol] 109 mmol/L 98-107 [facility] Glucose [Mass/Vol] 95 mg/dL 74-106 [facility] Potassium [Moles/Vol] 3.8 mmol/L 3.5-5.1 [facility] Protein [Mass/Vol] 6.0 g/dL 6.4-8.2 [facility] Sodium [Moles/Vol] 140 mmol/L 136-145 [facility] Blood manual differential co mment interpretation (narrative result)Ordered By: Maame Pinon on 09-10-2023 Manual differential comment Porter (Bld) [Interp] SCANNED [facility] Laboratory - Chemistry and C hemistry - challengeOrdered By: Maame Pinon on 09-10-2023 Albumin/Globulin [Mass ratio] 0.9 {ratio} 0.9-2.4 [facility] ALP [Catalytic activity/Vol] 104 U/L 45-117 [facility] ALT [Catalytic activity/Vol] 11 U/L 13-56 [facility] CO2 [Moles/Vol] 27.0 mmol/L 21.0-32.0 [facility] Globulin (S) [Mass/Vol] 3.1 g/dL 2.2-4.2 [facility] Magnesium [Mass/Vol] 2.1 mg/dL 1.6-2.6 [facility] Urea nitrogen/Creatinine [Mass ratio] 26.5 mg/mg 10-20 [facility] No Panel InformationOrdered By: Maame Pinon on 09-10-2023 Estimated Creatinine Clearance Calc 27.75 ml/min [facility] Estimated GFR (MDRD) Amer 76 mL/min >60 [facility] Comment on above: GFR Calc Estimated GFR (MDRD) Non-Af Amer 63 mL/min >60 [facility] Comment on above: Non- GFR Calc 63 mL/min >60 [facility] 76 mL/min >60 [facility] 27.75 ml/min [facility] 26.5 RATIO 10-20 [facility] 3.1 g/dL 2.2-4.2 [facility] 0.9 RATIO 0.9-2.4 [facility] 104 U/L 45-117 [facility] 11 U/L 13-56 [facility] 2.1 mg/dL 1.6-2.6 [facility] 27.0 mmol/L 21.0-32.0 [facility] Serum or plasma calcium fran urement (mass/volume)Ordered By: Maame Pinon on 09-10-2023 Calcium [Mass/Vol] 8.7 mg/dL 8.5-10.1 [facility] Serum or plasma creatinine m easurement (mass/volume)Ordered By: Maame Pinon on 09-10-2023 Creatinine [Mass/Vol] 0.90 mg/dL 0.55-1.02 [facility] Comment on above: The validity of the calculated GFR & GFRAA in patients over 70 years has not been determined. Clinical correlation is essential. Serum or plasma urea nitroge n measurement (mass/volume)Ordered By: Maame Pinon on 09-10-2023 Urea nitrogen [Mass/Vol] 24 mg/dL 7-18 [facility] Thin prep Papanicolaou smear with manual screeningOrdered By: Maame Pinon on 09-10-2023 Thin prep Papanicolaou smear with manual screening 2.9 g/dL 3.2-5.0 [facility] Thin prep Papanicolaou smear with manual screening 38 U/L 15-37 [facility] Thin prep Papanicolaou smear with manual screening 4 5-15 [facility] Basophil percentageOrdered B y: Gonzalez Garza on 09-09-2023 Basophil percentage 0-5 SEEN /hpf 0-5 [facility] Bilirubin Test strip Ql (U)O rdered By: Gonzalez Garza on 09-09-2023 Bilirubin Ql (U) Negative Negative [facility] Ketones Test strip Ql (U)Ord ered By: Gonzalez Garza on 09-09-2023 Ketones Ql (U) 5 mg/dl Negative [facility] Mucus LM Ql (Urine sed)Order ed By: Gonzalez Garza on 09-09-2023 Mucus Ql (Urine sed) 0 SEEN /hpf [facility] Nitrite Test strip Ql (U)Ord ered By: Gonzalez Garza on 09-09-2023 Nitrite Ql (U) Negative Negative [facility] No Panel InformationOrdered By: Gonzalez Garza on 09-09-2023 Urine RBC 0 SEEN /hpf 0-5 [facility] 0 SEEN /hpf 0-5 [facility] Protein Test strip Ql (U)Ord ered By: Gonzalez Garza on 09-09-2023 Protein Ql (U) 15 mg/dl Negative [facility] Squamous epithelial cells de tection in urine sediment by light microscopyOrdered By: Gonzalez Garza on 09-09-2023 Epithelial cells.squamous LM Ql (Urine sed) 0 SEEN /hpf 5-10 [facility] Transitional cells detection in urine sediment by light microscopyOrdered By: Gonzalez Garza on 09-09-2023 Transitional cells LM Ql (Urine sed) 0 SEEN /hpf 0-5 [facility] Urine blood detectionOrdered By: Gonzalez Garza on 09-09-2023 RBC Ql (U) Negative Negative [facility] Urine clarityOrdered By: Edda Garza on 09-09-2023 Clarity (U) Clear Clear [facility] Urine color determinationOrd ered By: Gonzalez Garza on 09-09-2023 Color (U) Yellow Yellow [facility] Urine glucose detectionOrder ed By: Gonzalez Garza on 09-09-2023 Glucose Ql (U) Normal mg/dl Normal [facility] Urine leukocyte esterase det ection by dipstickOrdered By: Gonzalez Garza on 09-09-2023 Leukocyte esterase Test strip Ql (U) 25 /ul Negative [facility] Urine pHOrdered By: Gonzalez Rivera on 09-09-2023 pH (U) 6.5 [pH] 5.0 - 8.0 [facility] Urine sediment bacteria coun t by microscopy (number/high power field)Ordered By: Gonzalez Garza on 09-09-2023 Bacteria LM.HPF (Urine sed) [#/Area] 1 /[HPF] None Seen [facility] Urine sediment renal epithel ial cell count by microscopy (number/high power field)Ordered By: Gonzalez Garza on 09-09-2023 Epithelial cells.renal LM.HPF (Urine sed) [#/Area] 0 /[HPF] 0-5 [facility] Urine specific gravity measu rementOrdered By: Gonzalez Garza on 09-09-2023 Specific gravity (U) [Rel density] 1.020 1.002-1.030 [facility] Urine urobilinogen measureme ntOrdered By: Gonzalez Gazra on 09-09-2023 Urobilinogen Ql (U) Normal mg/dl Normal [facility] Absolute lymphocyte countOrd ered By: Germán Benson on 09-08-2023 Lymphocytes Auto (Unsp spec) [#/Vol] 5.22 10*3/uL 0.83-4.51 [facility] Automated lymphocyte count a s percentage of total leukocytesOrdered By: Germán Benson on 09-08-2023 Lymphocytes/100 WBC Auto (Unsp spec) 35.9 % 19-41 [facility] Basophil percentageOrdered B y: Germán Benson on 09-08-2023 Basophils/100 WBC (Bld) 2.4 % 0-1 [facility] Chloride [Moles/Vol] 106 mmol/L 98-107 [facility] Eosinophils/100 WBC (Bld) 2.5 % 0-5 [facility] Glucose [Mass/Vol] 123 mg/dL 74-106 [facility] Comment on above: Fasting Glucose resu lt from 100 to 125 mg/dL suggests IMPAIRED HOMEOSTASIS per A.D.A. criteria. Hemoglobin (Bld) [Mass/Vol] 12.8 g/dL 12.0-15.0 [facility] Monocytes/100 WBC (Bld) 7.5 % 0-10 [facility] Neutrophils (Bld) [#/Vol] 7.5 10*3/uL 2.0-7.7 [facility] Neutrophils/100 WBC (Bld) 51.3 % 47-70 [facility] Potassium [Moles/Vol] 4.4 mmol/L 3.5-5.1 [facility] Comment on above: Slight Hemolysis, Re sult may be falsely increased. Sodium [Moles/Vol] 139 mmol/L 136-145 [facility] WBC (Bld) [#/Vol] 14.5 10*3/uL 4.4-11.0 [facility] Blood manual differential co mment interpretation (narrative result)Ordered By: Germán Benson on 09-08-2023 Manual differential comment Porter (Bld) [Interp] SCANNED [facility] Determination of erythrocyte mean corpuscular volume (MCV)Ordered By: Germán Benson on 09-08-2023 MCV (RBC) [Entitic vol] 94.0 fL 81-99 [facility] Erythrocyte distribution wid th ratioOrdered By: Germán Benson on 09-08-2023 Erythrocyte distribution width (RBC) [Ratio] 13.5 % 11.6-14.6 [facility] Erythrocyte distribution wid th standard deviationOrdered By: Germán Benson on 09-08-2023 Erythrocyte distribution width (RBC) [Entitic vol] 46.9 fL 35.1-43.9 [facility] Hematocrit Auto (Bld) [Volum e fraction]Ordered By: Germán Benson on 09-08-2023 Hematocrit (Bld) [Volume fraction] 40.8 % 37-47 [facility] Immature granulocytes/100 WB C Auto (Bld)Ordered By: Germán Benson on 09-08-2023 Immature granulocytes/100 WBC (Bld) 0.400 % 0.0-0.9 [facility] Comment on above: IG% - Immature Granu locytes (promyelocytes, myelocytes and metamyelocytes) > 1% indicates that a LEFT SHIFT is Present. Laboratory - Chemistry and C hemistry - challengeOrdered By: Germán Benson on 09-08-2023 CK [Catalytic activity/Vol] 65 U/L 26-192 [facility] CO2 [Moles/Vol] 26.0 mmol/L 21.0-32.0 [facility] Urea nitrogen/Creatinine [Mass ratio] 18.7 mg/mg 10-20 [facility] Laboratory - Hematology and Cell countsOrdered By: Germán Benson on 09-08-2023 MCH (RBC) [Entitic mass] 29.5 pg 27.0-32.0 [facility] MCHC (RBC) [Mass/Vol] 31.4 g/dL 32-36 [facility] Nucleated RBC/100 WBC (Bld) [Ratio] 0 % 0-5 [facility] Platelet mean volume (Bld) [Entitic vol] 9.7 fL 6.2-12.0 [facility] Platelets (Bld) [#/Vol] 329 10*3/uL 150-450 [facility] No Panel InformationOrdered By: Germán Benson on 09-08-2023 Estimated Creatinine Clearance Calc 21.72 ml/min [facility] Estimated GFR (MDRD) Amer 53 mL/min >60 [facility] Comment on above: GFR Calc Estimated GFR (MDRD) Non-Af Amer 44 mL/min >60 [facility] Comment on above: Non- GFR Calc Troponin I High Sensitivity 7 pg/mL 3.0-54.0 [facility] Comment on above: Please Note: New Shreya t Units and Gender Specific Reference Ranges. For more information see Policy Stat Procedure [place] High Sensitivity Troponin (TNIH) and attachments. 65 U/L [facility] 7 pg/mL 3.0-54.0 [facility] RBC Auto (Bld) [#/Vol]Ordere d By: Germán Benson on 09-08-2023 RBC (Bld) [#/Vol] 4.34 10*6/uL 4.2-5.4 [facility] Serum or plasma calcium fran urement (mass/volume)Ordered By: Germán Benson on 09-08-2023 Calcium [Mass/Vol] 9.3 mg/dL 8.5-10.1 [facility] Serum or plasma creatinine m easurement (mass/volume)Ordered By: Germán Benson on 09-08-2023 Creatinine [Mass/Vol] 1.23 mg/dL 0.55-1.02 [facility] Comment on above: The validity of the calculated GFR & GFRAA in patients over 70 years has not been determined. Clinical correlation is essential. Serum or plasma urea nitroge n measurement (mass/volume)Ordered By: Germán Benson on 09-08-2023 Urea nitrogen [Mass/Vol] 23 mg/dL 7-18 [facility] Thin prep Papanicolaou smear with manual screeningOrdered By: Germán Benson on 09-08-2023 Thin prep Papanicolaou smear with manual screening 7 5-15 [facility] Culture, urineOrdered By: Keith Zimmerman on 08-21-2023 Bacteria identified Cx Nom (U) Culture exhibits no growth. [facility] Bacteria identified Cx Nom (U) Culture exhibits no growth. [facility] Absolute lymphocyte countOrd ered By: Howard Zimmerman on 08-20-2023 Lymphocytes Auto (Unsp spec) [#/Vol] 8.14 10*3/uL 0.83-4.51 [facility] Automated lymphocyte count a s percentage of total leukocytesOrdered By: Howard Zimmerman on 08-20-2023 Lymphocytes/100 WBC Auto (Unsp spec) 49.5 % 19-41 [facility] Basophil percentageOrdered B y: Howard Zimmerman on 08-20-2023 Basophil percentage 11.6 g/dL 12.0-15.0 [facility] Basophil percentage 106 mg/dL 74-106 [facility] Basophil percentage 138 mmol/L 136-145 [facility] Basophil percentage 4.4 mmol/L 3.5-5.1 [facility] Basophil percentage 107 mmol/L 98-107 [facility] Basophils (Bld) [#/Vol] 16.5 10*3/uL 4.4-11.0 [facility] Basophils (Bld) [#/Vol] 6.2 10*3/uL 2.0-7.7 [facility] Basophils/100 WBC (Bld) 2.7 % 0-1 [facility] Basophils/100 WBC (Bld) 37.3 % 47-70 [facility] Basophils/100 WBC (Bld) 8.4 % 0-10 [facility] Basophils/100 WBC (Bld) 1.8 % 0-5 [facility] Chloride [Moles/Vol] 107 mmol/L 98-107 [facility] Eosinophils/100 WBC (Bld) 1.8 % 0-5 [facility] Glucose [Mass/Vol] 106 mg/dL 74-106 [facility] Comment on above: Fasting Glucose resu lt from 100 to 125 mg/dL suggests IMPAIRED HOMEOSTASIS per A.D.A. criteria. Hemoglobin (Bld) [Mass/Vol] 11.6 g/dL 12.0-15.0 [facility] Monocytes/100 WBC (Bld) 8.4 % 0-10 [facility] Neutrophils (Bld) [#/Vol] 6.2 10*3/uL 2.0-7.7 [facility] Neutrophils/100 WBC (Bld) 37.3 % 47-70 [facility] Potassium [Moles/Vol] 4.4 mmol/L 3.5-5.1 [facility] Sodium [Moles/Vol] 138 mmol/L 136-145 [facility] WBC (Bld) [#/Vol] 16.5 10*3/uL 4.4-11.0 [facility] Blood manual differential co mment interpretation (narrative result)Ordered By: Howard Zimmerman on 08-20-2023 Manual differential comment Porter (Bld) [Interp] SCANNED [facility] Comment on above: LYMPHOCYTOSIS NOTED Determination of erythrocyte mean corpuscular volume (MCV)Ordered By: Howard Zimmerman on 08-20-2023 MCV (RBC) [Entitic vol] 94.1 fL 81-99 [facility] Erythrocyte distribution wid th ratioOrdered By: Howard Zimmerman on 08-20-2023 Erythrocyte distribution width (RBC) [Ratio] 13.9 % 11.6-14.6 [facility] Erythrocyte distribution wid th standard deviationOrdered By: Howard Zimmerman on 08-20-2023 Erythrocyte distribution width (RBC) [Entitic vol] 47.7 fL 35.1-43.9 [facility] Hematocrit Auto (Bld) [Volum e fraction]Ordered By: Howard Zimmerman on 08-20-2023 Hematocrit (Bld) [Volume fraction] 36.7 % 37-47 [facility] Immature granulocytes/100 WB C Auto (Bld)Ordered By: Howard Zimmerman on 08-20-2023 Immature granulocytes/100 WBC (Bld) 0.300 % 0.0-0.9 [facility] Comment on above: IG% - Immature Granu locytes (promyelocytes, myelocytes and metamyelocytes) > 1% indicates that a LEFT SHIFT is Present. Laboratory - Chemistry and C hemistry - challengeOrdered By: Howard Zimmerman on 08-20-2023 CO2 [Moles/Vol] 27.0 mmol/L 21.0-32.0 [facility] Urea nitrogen/Creatinine [Mass ratio] 22.9 mg/mg 10- [facility] Laboratory - Hematology and Cell countsOrdered By: Howard Zimmerman on 08-20-2023 MCH (RBC) [Entitic mass] 29.7 pg 27.0-32.0 [facility] MCHC (RBC) [Mass/Vol] 31.6 g/dL 32-36 [facility] Nucleated RBC/100 WBC (Bld) [Ratio] 0 % 0-5 [facility] Platelet mean volume (Bld) [Entitic vol] 11.9 fL 6.2-12.0 [facility] Platelets (Bld) [#/Vol] 207 10*3/uL 150-450 [facility] No Panel InformationOrdered By: Howard Zimmerman on 08-20-2023 Estimated GFR (MDRD) Amer 64 mL/min >60 [facility] Comment on above: GFR Calc Estimated GFR (MDRD) Non-Af Amer 53 mL/min >60 [facility] Comment on above: Non- GFR Calc 29.7 pg 27.0-32.0 [facility] 31.6 g/dL 32-36 [facility] 207 K/mm3 150-450 [facility] 11.9 fl 6.2-12.0 [facility] 0 % 0-5 [facility] 53 mL/min >60 [facility] 64 mL/min >60 [facility] 22.9 RATIO 04-06 [facility] 27.0 mmol/L 21.0-32.0 [facility] RBC Auto (Bld) [#/Vol]Ordere d By: Howard Zimmerman on 08-20-2023 RBC (Bld) [#/Vol] 3.90 10*6/uL 4.2-5.4 [facility] Serum or plasma calcium fran urement (mass/volume)Ordered By: Howard Zimmerman on 08-20-2023 Calcium [Mass/Vol] 9.0 mg/dL 8.5-10.1 [facility] Serum or plasma creatinine m easurement (mass/volume)Ordered By: Howard Zimmerman on 08-20-2023 Creatinine [Mass/Vol] 1.05 mg/dL 0.55-1.02 [facility] Comment on above: The validity of the calculated GFR & GFRAA in patients over 70 years has not been determined. Clinical correlation is essential. Serum or plasma urea nitroge n measurement (mass/volume)Ordered By: Howard Zimmerman on 08-20-2023 Urea nitrogen [Mass/Vol] 24 mg/dL 7-18 [facility] Thin prep Papanicolaou smear with manual screeningOrdered By: Howard Zimmerman on 08-20-2023 Thin prep Papanicolaou smear with manual screening 4 5-15 [facility] Absolute lymphocyte countOrd ered By: Umesh Velázquez on 07-28-2023 Lymphocytes Auto (Unsp spec) [#/Vol] 5.67 10*3/uL 0.83-4.51 [facility] Amorphous sediment detection in urine sediment by light microscopyOrdered By: Umesh Velázquez on 07-28-2023 Amorphous sediment LM Ql (Urine sed) 1+ [facility] Automated lymphocyte count a s percentage of total leukocytesOrdered By: Umesh Velázquez on 07-28-2023 Lymphocytes/100 WBC Auto (Unsp spec) 33.4 % 19-41 [facility] Basophil percentageOrdered B y: Umesh Velázquez on 07-28-2023 Basophil percentage 0 SEEN /hpf 0-5 [facility] Basophil percentage 12.4 g/dL 12.0-15.0 [facility] Basophil percentage 104 mg/dL 74-106 [facility] Basophil percentage 7.2 g/dL 6.4-8.2 [facility] Basophil percentage 0.70 mg/dL 0.20-1.00 [facility] Basophil percentage 137 mmol/L 136-145 [facility] Basophil percentage 4.2 mmol/L 3.5-5.1 [facility] Basophil percentage 103 mmol/L 98-107 [facility] Basophils (Bld) [#/Vol] 17.0 10*3/uL 4.4-11.0 [facility] Basophils (Bld) [#/Vol] 9.6 10*3/uL 2.0-7.7 [facility] Basophils/100 WBC (Bld) 1.9 % 0-1 [facility] Basophils/100 WBC (Bld) 56.7 % 47-70 [facility] Basophils/100 WBC (Bld) 7.1 % 0-10 [facility] Basophils/100 WBC (Bld) 0.4 % 0-5 [facility] Bilirubin [Mass/Vol] 0.70 mg/dL 0.20-1.00 [facility] Comment on above: For patients on eltr ombopag therapy, use of Dimension [place] TBIL is not recommended. Chloride [Moles/Vol] 103 mmol/L 98-107 [facility] Eosinophils/100 WBC (Bld) 0.4 % 0-5 [facility] Glucose [Mass/Vol] 104 mg/dL 74-106 [facility] Comment on above: Fasting Glucose resu lt from 100 to 125 mg/dL suggests IMPAIRED HOMEOSTASIS per A.D.A. criteria. Hemoglobin (Bld) [Mass/Vol] 12.4 g/dL 12.0-15.0 [facility] Monocytes/100 WBC (Bld) 7.1 % 0-10 [facility] Neutrophils (Bld) [#/Vol] 9.6 10*3/uL 2.0-7.7 [facility] Neutrophils/100 WBC (Bld) 56.7 % 47-70 [facility] Potassium [Moles/Vol] 4.2 mmol/L 3.5-5.1 [facility] Protein [Mass/Vol] 7.2 g/dL 6.4-8.2 [facility] Sodium [Moles/Vol] 137 mmol/L 136-145 [facility] WBC (Bld) [#/Vol] 17.0 10*3/uL 4.4-11.0 [facility] Bilirubin Test strip Ql (U)O rdered By: Umesh Velázquez on 07-28-2023 Bilirubin Ql (U) Negative Negative [facility] Blood manual differential co mment interpretation (narrative result)Ordered By: Umesh Velázquez on 07-28-2023 Manual differential comment Porter (Bld) [Interp] SCANNED [facility] Determination of erythrocyte mean corpuscular volume (MCV)Ordered By: Umesh Velázquez on 07-28-2023 MCV (RBC) [Entitic vol] 91.9 fL 81-99 [facility] Erythrocyte distribution wid th ratioOrdered By: Umesh Velázquez on 07-28-2023 Erythrocyte distribution width (RBC) [Ratio] 13.4 % 11.6-14.6 [facility] Erythrocyte distribution wid th standard deviationOrdered By: Umesh Velázquez on 07-28-2023 Erythrocyte distribution width (RBC) [Entitic vol] 45.3 fL 35.1-43.9 [facility] Hematocrit Auto (Bld) [Volum e fraction]Ordered By: Umesh Velázquez on 07-28-2023 Hematocrit (Bld) [Volume fraction] 37.4 % 37-47 [facility] Immature granulocytes/100 WB C Auto (Bld)Ordered By: Umesh Velázquez on 07-28-2023 Immature granulocytes/100 WBC (Bld) 0.500 % 0.0-0.9 [facility] Comment on above: IG% - Immature Granu locytes (promyelocytes, myelocytes and metamyelocytes) > 1% indicates that a LEFT SHIFT is Present. Ketones Test strip Ql (U)Ord ered By: Umesh Velázquez on 07-28-2023 Ketones Ql (U) Negative Negative [facility] Laboratory - Chemistry and C hemistry - challengeOrdered By: Umesh Velázquez on 07-28-2023 Albumin/Globulin [Mass ratio] 0.9 {ratio} 0.9-2.4 [facility] ALP [Catalytic activity/Vol] 148 U/L 45-117 [facility] ALT [Catalytic activity/Vol] 17 U/L 13-56 [facility] CO2 [Moles/Vol] 30.0 mmol/L 21.0-32.0 [facility] Globulin (S) [Mass/Vol] 3.7 g/dL 2.2-4.2 [facility] Urea nitrogen/Creatinine [Mass ratio] 22.7 mg/mg 10-20 [facility] Laboratory - Hematology and Cell countsOrdered By: Umesh Velázquez on 07-28-2023 MCH (RBC) [Entitic mass] 30.5 pg 27.0-32.0 [facility] MCHC (RBC) [Mass/Vol] 33.2 g/dL 32-36 [facility] Nucleated RBC/100 WBC (Bld) [Ratio] 0 % 0-5 [facility] Platelet mean volume (Bld) [Entitic vol] 10.3 fL 6.2-12.0 [facility] Platelets (Bld) [#/Vol] 402 10*3/uL 150-450 [facility] Mucus LM Ql (Urine sed)Order ed By: Umesh Velázquez on 07-28-2023 Mucus Ql (Urine sed) 0 SEEN /hpf [facility] Nitrite Test strip Ql (U)Ord ered By: Umesh Velázquez on 07-28-2023 Nitrite Ql (U) Negative Negative [facility] No Panel InformationOrdered By: Umesh Velázquez on 07-28-2023 Urine RBC 0 SEEN /hpf 0-5 [facility] 0 SEEN /hpf 0-5 [facility] Estimated Creatinine Clearance Calc 23.66 ml/min [facility] Estimated GFR (MDRD) Amer 55 mL/min >60 [facility] Comment on above: GFR Calc Estimated GFR (MDRD) Non-Af Amer 46 mL/min >60 [facility] Comment on above: Non- GFR Calc Reactive Lymphocytes 2+ [facility] 30.5 pg 27.0-32.0 [facility] 33.2 g/dL 32-36 [facility] 402 K/mm3 150-450 [facility] 10.3 fl 6.2-12.0 [facility] 0 % 0-5 [facility] 2+ [facility] 46 mL/min >60 [facility] 55 mL/min >60 [facility] 23.66 ml/min [facility] 22.7 RATIO 10-20 [facility] 3.7 g/dL 2.2-4.2 [facility] 0.9 RATIO 0.9-2.4 [facility] 148 U/L 45-117 [facility] 17 U/L 13-56 [facility] 30.0 mmol/L 21.0-32.0 [facility] Protein Test strip Ql (U)Ord ered By: Umesh Velázquez on 07-28-2023 Protein Ql (U) 15 mg/dl Negative [facility] RBC Auto (Bld) [#/Vol]Ordere d By: Umesh Velázquez on 07-28-2023 RBC (Bld) [#/Vol] 4.07 10*6/uL 4.2-5.4 [facility] Serum or plasma calcium fran urement (mass/volume)Ordered By: Umesh Velázquez on 07-28-2023 Calcium [Mass/Vol] 9.6 mg/dL 8.5-10.1 [facility] Serum or plasma creatinine m easurement (mass/volume)Ordered By: Umesh Velázquez on 07-28-2023 Creatinine [Mass/Vol] 1.19 mg/dL 0.55-1.02 [facility] Comment on above: The validity of the calculated GFR & GFRAA in patients over 70 years has not been determined. Clinical correlation is essential. Serum or plasma urea nitroge n measurement (mass/volume)Ordered By: Umesh Velázquez on 07-28-2023 Urea nitrogen [Mass/Vol] 27 mg/dL 7-18 [facility] Squamous epithelial cells de tection in urine sediment by light microscopyOrdered By: Umesh Velázquez on 07-28-2023 Epithelial cells.squamous LM Ql (Urine sed) 0 SEEN /hpf 10 [facility] Thin prep Papanicolaou smear with manual screeningOrdered By: Umesh Velázquez on 07-28-2023 Thin prep Papanicolaou smear with manual screening 3.5 g/dL 3.2-5.0 [facility] Thin prep Papanicolaou smear with manual screening 28 U/L 15-37 [facility] Thin prep Papanicolaou smear with manual screening 4 5-15 [facility] Urine blood detectionOrdered By: Umesh Velázquez on 07-28-2023 RBC Ql (U) Negative Negative [facility] Urine clarityOrdered By: Bebeto Velázquez on 07-28-2023 Clarity (U) Clear Clear [facility] Urine color determinationOrd ered By: Umesh Velázquez on 07-28-2023 Color (U) Yellow Yellow [facility] Urine glucose detectionOrder ed By: Umesh Velázquez on 07-28-2023 Glucose Ql (U) Normal mg/dl Normal [facility] Urine leukocyte esterase det ection by dipstickOrdered By: Umesh Velázquez on 07-28-2023 Leukocyte esterase Test strip Ql (U) Negative Negative [facility] Urine pHOrdered By: Umesh farmer on 07-28-2023 pH (U) 7.0 [pH] 5.0 - 8.0 [facility] Urine sediment bacteria coun t by microscopy (number/high power field)Ordered By: Umesh Velázquez on 07-28-2023 Bacteria LM.HPF (Urine sed) [#/Area] 0 /[HPF] None Seen [facility] Urine specific gravity measu rementOrdered By: Umesh Velázquez on 07-28-2023 Specific gravity (U) [Rel density] 1.010 1.002-1.030 [facility] Urine urobilinogen measureme ntOrdered By: Umesh Velázquez on 07-28-2023 Urobilinogen Ql (U) Normal mg/dl Normal [facility] Absolute lymphocyte countOrd ered By: Daisy Mack on 06-29-2023 Lymphocytes Auto (Unsp spec) [#/Vol] 5.59 10*3/uL 0.83-4.51 [facility] Basophil percentageOrdered B y: Daisy Mack on 06-29-2023 Basophil percentage 93 mg/dL 74-106 [facility] Basophil percentage 6.0 g/dL 6.4-8.2 [facility] Basophil percentage 0.40 mg/dL 0.20-1.00 [facility] Basophil percentage 210 mg/dL <200 [facility] Basophil percentage 134 mg/dL <199 [facility] Basophil percentage 139 mmol/L 136-145 [facility] Basophil percentage 4.0 mmol/L 3.5-5.1 [facility] Basophil percentage 107 mmol/L 98-107 [facility] Basophils (Bld) [#/Vol] 15.7 10*3/uL 4.4-11.0 [facility] Basophils (Bld) [#/Vol] 8.1 10*3/uL 2.0-7.7 [facility] Basophils/100 WBC (Bld) 2.2 % 0-1 [facility] Basophils/100 WBC (Bld) 51.9 % 47-70 [facility] Bilirubin [Mass/Vol] 0.40 mg/dL 0.20-1.00 [facility] Comment on above: For patients on eltr ombopag therapy, use of Dimension [place] TBIL is not recommended. Chloride [Moles/Vol] 107 mmol/L 98-107 [facility] Cholesterol [Mass/Vol] 210 mg/dL <200 [facility] Comment on above: <200 mg/dL Desirable 200-240 mg/dL Borderline >240 mg/dL High Risk Eosinophils/100 WBC (Bld) 2.2 % 0-5 [facility] Glucose [Mass/Vol] 93 mg/dL 74-106 [facility] Neutrophils (Bld) [#/Vol] 8.1 10*3/uL 2.0-7.7 [facility] Neutrophils/100 WBC (Bld) 51.9 % 47-70 [facility] Potassium [Moles/Vol] 4.0 mmol/L 3.5-5.1 [facility] Protein [Mass/Vol] 6.0 g/dL 6.4-8.2 [facility] Sodium [Moles/Vol] 139 mmol/L 136-145 [facility] Triglyceride [Mass/Vol] 134 mg/dL <199 [facility] Comment on above: The drugs N-Acetylcy steine and Metamizole may falsely depress this assay.Serum Triglycerides Reference Interval Normal <150 mg/dL Borderline high 150 - 199 mg/dL High 200 - 499 mg/dL Very High > or = 500 mg/dL WBC (Bld) [#/Vol] 15.7 10*3/uL 4.4-11.0 [facility] Blood erythrocytes count (nu mber/volume)Ordered By: Daisy Mack on 06-29-2023 RBC (Bld) [#/Vol] 4.27 10*6/uL 4.2-5.4 [facility] Blood hemoglobin measurement (mass/volume)Ordered By: Dasiy Mack on 06-29-2023 Hemoglobin (Bld) [Mass/Vol] 12.7 g/dL 12.0-15.0 [facility] Blood lymphocytes/100 leukoc ytesOrdered By: Daisy Mack on 06-29-2023 Lymphocytes/100 WBC (Bld) 35.7 % 19-41 [facility] Blood manual differential co mment interpretation (narrative result)Ordered By: Daisy Mack on 06-29-2023 Manual differential comment Porter (Bld) [Interp] SCANNED [facility] Blood monocytes/100 leukocyt esOrdered By: Daisy Frederick on 06-29-2023 Monocytes/100 WBC (Bld) 7.7 % 0-10 [facility] Blood platelet mean volumeOr dered By: Daisy Mack on 06-29-2023 Platelet mean volume (Bld) [Entitic vol] 9.4 fL 6.2-12.0 [facility] Determination of erythrocyte mean corpuscular volume (MCV)Ordered By: [facility] Frederick on 06-29-2023 MCV (RBC) [Entitic vol] 91.6 fL 81-99 [facility] Hematocrit Auto (Bld) [Volum e fraction]Ordered By: [facility] Frederick on 06-29-2023 Hematocrit (Bld) [Volume fraction] 39.1 % 37-47 [facility] Laboratory - Chemistry and C hemistry - challengeOrdered By: [facility] Frederick on 06-29-2023 ALP [Catalytic activity/Vol] 91 U/L 45-117 [facility] ALT [Catalytic activity/Vol] 13 U/L 13-56 [facility] CO2 [Moles/Vol] 25.0 mmol/L 21.0-32.0 [facility] Globulin (S) [Mass/Vol] 3.1 g/dL 2.2-4.2 [facility] Urea nitrogen/Creatinine [Mass ratio] 24.0 mg/mg 10-20 [facility] Laboratory - Hematology and Cell countsOrdered By: [facility] Frederick on 06-29-2023 Erythrocyte distribution width (RBC) [Entitic vol] 46.9 fL 35.1-43.9 [facility] Erythrocyte distribution width (RBC) [Ratio] 13.9 % 11.6-14.6 [facility] Immature granulocytes/100 WBC (Bld) 0.300 % 0.0-0.9 [facility] Comment on above: IG% - Immature Granu locytes (promyelocytes, myelocytes and metamyelocytes) > 1% indicates that a LEFT SHIFT is Present. MCH (RBC) [Entitic mass] 29.7 pg 27.0-32.0 [facility] Nucleated RBC/100 W[facility] (Bld) [Ratio] 0 [facility] [Mass/Vol]Or dered By: Daisy Mack on 06-29-2023 MCHC (RBC) [Mass/Vol] 32.5 g/dL 32-36 [facility] No Panel InformationOrdered By: Daisy Mack on 06-29-2023 Estimated Creatinine Clearance Calc 28.02 ml/min [facility] Estimated GFR (MDRD) Amer 74 mL/min >60 [facility] Comment on above: GFR Calc Estimated GFR (MDRD) Non-Af Amer 62 mL/min >60 [facility] Comment on above: Non- GFR Calc Thyroid Stimulating Hormone (TSH) 2.02 uIU/mL 0.358-3.74 [facility] 29.7 pg 27.0-32.0 [facility] 13.9 % 11.6-14.6 [facility] 46.9 fl 35.1-43.9 [facility] 0.300 % 0.0-0.9 [facility] 0 % 0-5 [facility] 62 mL/min >60 [facility] 74 mL/min >60 [facility] 28.02 ml/min [facility] 24.0 RATIO 10-20 [facility] 3.1 g/dL 2.2-4.2 [facility] 91 U/L 45-117 [facility] 13 U/L 13-56 [facility] 25.0 mmol/L 21.0-32.0 [facility] 2.02 uIU/mL 0.358-3.74 [facility] Platelets bldOrdered By: Denny Mack on 06-29-2023 Platelets (Bld) [#/Vol] 346 10*3/uL 150-450 [facility] Serum or plasma albumin fran urement (mass/volume)Ordered By: Daisy Mack on 06-29-2023 Albumin [Mass/Vol] 2.9 g/dL 3.2-5.0 [facility] Serum or plasma albumin/glob ulin mass ratioOrdered By: Daisy Mack on 06-29-2023 Albumin/Globulin [Mass ratio] 0.9 {ratio} 0.9-2.4 [facility] Serum or plasma calcium fran urement (mass/volume)Ordered By: Daisy Mack on 06-29-2023 Calcium [Mass/Vol] 8.7 mg/dL 8.5-10.1 [facility] Serum or plasma cholesterol in HDL measurement (mass/volume)Ordered By: Daisy Mack on 06-29-2023 Cholesterol in HDL [Mass/Vol] 57 mg/dL >40 [facility] Comment on above: The drugs N-Acetylcy steine and Metamizole may falsely depress this assay. Reference Range HDL <40 mg/dL Low HDL Cholesterol HDL >or= 60 mg/dL High HDL Cholesterol Serum or plasma cholesterol in VLDL measurement (mass/volume)Ordered By: Daisy Mack on 06-29-2023 Cholesterol in VLDL [Mass/Vol] 27 mg/dL 5-40 [facility] Serum or plasma creatinine m easurement (mass/volume)Ordered By: Daisy Mack 06-29-2023 Creatinine [Mass/Vol] 0.92 mg/dL 0.55-1.02 [facility] Comment on above: The validity of the calculated GFR & GFRAA in patients over 70 years has not been determined. Clinical correlation is essential. Serum or plasma low density lipoprotein (LDL) cholesterol measurement (mass/volume)Ordered By: Daisy Mack on 06-29-2023 Cholesterol in LDL [Mass/Vol] 126 mg/dL 0-130 [facility] Serum or plasma urea nitroge n measurement (mass/volume)Ordered By: Daisy Mack 06-29-2023 Urea nitrogen [Mass/Vol] 22 mg/dL 7-18 [facility] Thin prep Papanicolaou smear with manual screeningOrdered By: Daisy Mack 06-29-2023 Thin prep Papanicolaou smear with manual screening 22 U/L 15-37 [facility] Thin prep Papanicolaou smear with manual screening 7 5-15 [facility] Whole blood hemoglobin A1c/t otal hemoglobin ratio (mass fraction)Ordered By: Daisy Mack on 06-29-2023 HbA1c (Bld) [Mass fraction] 5.3 % 3.8-5.6 [facility] Comment on above: Normal < 5.7 % Predi abetic 5.7 - 6.4 % Diabetic >or= 6.5 % Please note range changes. Absolute lymphocyte countOrd ered By: Myrna Munguia on 06-28-2023 Lymphocytes Auto (Unsp spec) [#/Vol] 7.62 10*3/uL 0.83-4.51 [facility] Basophil percentageOrdered B y: Myrna Munguia on 06-28-2023 Basophils/100 WBC (Bld) 2.6 % 0-1 [facility] Chloride [Moles/Vol] 103 mmol/L 98-107 [facility] Eosinophils/100 WBC (Bld) 2.3 % 0-5 [facility] Glucose [Mass/Vol] 91 mg/dL 74-106 [facility] Neutrophils (Bld) [#/Vol] 4.8 10*3/uL 2.0-7.7 [facility] Neutrophils/100 WBC (Bld) 33.4 % 47-70 [facility] Potassium [Moles/Vol] 4.1 mmol/L 3.5-5.1 [facility] Sodium [Moles/Vol] 137 mmol/L 136-145 [facility] WBC (Bld) [#/Vol] 14.4 10*3/uL 4.4-11.0 [facility] Blood erythrocytes count (nu mber/volume)Ordered By: Myrna Munguia on 06-28-2023 RBC (Bld) [#/Vol] 4.30 10*6/uL 4.2-5.4 [facility] Blood hemoglobin measurement (mass/volume)Ordered By: Myrna Munguia on 06-28-2023 Hemoglobin (Bld) [Mass/Vol] 12.8 g/dL 12.0-15.0 [facility] Blood lymphocytes/100 leukoc ytesOrdered By: Myrna Munguia on 06-28-2023 Lymphocytes/100 WBC (Bld) 53.0 % 19-41 [facility] Blood manual differential co mment interpretation (narrative result)Ordered By: Myrna Munguia on 06-28-2023 Manual differential comment Porter (Bld) [Interp] SCANNED [facility] Comment on above: LYMPHOCYTOSIS Blood monocytes/100 leukocyt esOrdered By: Myrna Munguia on 06-28-2023 Monocytes/100 WBC (Bld) 8.4 % 0-10 [facility] Blood platelet mean volumeOr dered By: Myrna Munguia on 06-28-2023 Platelet mean volume (Bld) [Entitic vol] 9.6 fL 6.2-12.0 [facility] Determination of erythrocyte mean corpuscular volume (MCV)Ordered By: Myrna Munguia on 06-28-2023 MCV (RBC) [Entitic vol] 93.5 fL 81-99 [facility] Glucose Glucometer (BldC) [M ass/Vol]Ordered By: Myrna Munguia on 06-28-2023 Glucose [Mass/Vol] 78 mg/dL 74-106 [facility] Comment on above: MANAGEMENT OF PATIEN T CARE PER NURSING PROTOCOL Hematocrit Auto (Bld) [Volum e fraction]Ordered By: Myrna Munguia on 06-28-2023 Hematocrit (Bld) [Volume fraction] 40.2 % 37-47 [facility] INR in Blood by Coagulation assayOrdered By: Myrna Munguia on 06-28-2023 INR Coag (Bld) [Relative time] 1.0 {INR} [facility] Laboratory - Chemistry and C hemistry - challengeOrdered By: Myrna Munguia on 06-28-2023 CO2 [Moles/Vol] 29.0 mmol/L 21.0-32.0 [facility] Urea nitrogen/Creatinine [Mass ratio] 23.5 mg/mg 10-20 [facility] Laboratory - Chemistry and C hemistry - challengeOrdered By: Daisy Mack on 06-28-2023 Magnesium [Mass/Vol] 2.3 mg/dL 1.6-2.6 [facility] - CoagulationOrde red By: Myrna Munguia on 06-28-2023 aPTT Coag (Bld) [Time] 27.6 s 24.1-36.2 [facility] PT Coag (PPP) [Time] 12.6 s 11.7-14.9 [facility] Laboratory - Hematology and Cell countsOrdered By: Myrna Munguia on 06-28-2023 Erythrocyte distribution width (RBC) [Entitic vol] 48.0 fL 35.1-43.9 [facility] Erythrocyte distribution width (RBC) [Ratio] 14.0 % 11.6-14.6 [facility] Immature granulocytes/100 WBC (Bld) 0.300 % 0.0-0.9 [facility] Comment on above: IG% - Immature Granu locytes (promyelocytes, myelocytes and metamyelocytes) > 1% indicates that a LEFT SHIFT is Present. MCH (RBC) [Entitic mass] 29.8 pg 27.0-32.0 [facility] Nucleated RBC/100 WBC (Bld) [Ratio] 0 % 0-5 [facility] MCHC Auto (RBC) [Mass/Vol]Or dered By: Myrna Munguia on 06-28-2023 MCHC (RBC) [Mass/Vol] 31.8 g/dL 32-36 [facility] No Panel InformationOrdered By: Myrna Munguia on 06-28-2023 Estimated Creatinine Clearance Calc 25.91 ml/min [facility] Estimated GFR (MDRD) Amer 66 mL/min >60 [facility] Comment on above: GFR Calc Estimated GFR (MDRD) Non-Af Amer 55 mL/min >60 [facility] Comment on above: Non- GFR Calc Reactive Lymphocytes 1+ [facility] Troponin I High Sensitivity 6 pg/mL 3.0-54.0 [facility] Comment on above: Please Note: New Shreya t Units and Gender Specific Reference Ranges. For more information see Policy Stat Procedure [place] High Sensitivity Troponin (TNIH) and attachments. 1+ [facility] 12.6 SECONDS 11.7-14.9 [facility] 27.6 Seconds 24.1-36.2 [facility] 6 pg/mL 3.0-54.0 [facility] No Panel InformationOrdered By: Daisy Mack on 06-28-2023 2.3 mg/dL 1.6-2.6 [facility] Platelets bldOrdered By: Estefani Munguia on 06-28-2023 Platelets (Bld) [#/Vol] 357 10*3/uL 150-450 [facility] Serum or plasma calcium fran urement (mass/volume)Ordered By: Myrna Munguia on 06-28-2023 Calcium [Mass/Vol] 9.2 mg/dL 8.5-10.1 [facility] Serum or plasma creatinine m easurement (mass/volume)Ordered By: Myrna Munguia on 06-28-2023 Creatinine [Mass/Vol] 1.02 mg/dL 0.55-1.02 [facility] Comment on above: The validity of the calculated GFR & GFRAA in patients over 70 years has not been determined. Clinical correlation is essential. Serum or plasma urea nitroge n measurement (mass/volume)Ordered By: Myrna Munguia on 06-28-2023 Urea nitrogen [Mass/Vol] 24 mg/dL 7-18 [facility] Thin prep Papanicolaou smear with manual screeningOrdered By: Myrna Munguia on 06-28-2023 Thin prep Papanicolaou smear with manual screening 5 5-15 [facility] Absolute lymphocyte countOrd ered By: Howard Zimmerman on 05-28-2023 Lymphocytes Auto (Unsp spec) [#/Vol] 7.42 10*3/uL 0.83-4.51 [facility] Basophil percentageOrdered B y: Howard Zimmerman on 05-28-2023 Basophils/100 WBC (Bld) 2.9 % 0-1 [facility] Bilirubin [Mass/Vol] 0.60 mg/dL 0.20-1.00 [facility] Comment on above: For patients on eltr ombopag therapy, use of Dimension [place] TBIL is not recommended. Chloride [Moles/Vol] 104 mmol/L 98-107 [facility] Eosinophils/100 WBC (Bld) 1.4 % 0-5 [facility] Glucose [Mass/Vol] 108 mg/dL 74-106 [facility] Comment on above: Fasting Glucose resu lt from 100 to 125 mg/dL suggests IMPAIRED HOMEOSTASIS per A.D.A. criteria. Neutrophils (Bld) [#/Vol] 5.4 10*3/uL 2.0-7.7 [facility] Neutrophils/100 WBC (Bld) 36.6 % 47-70 [facility] Potassium [Moles/Vol] 4.2 mmol/L 3.5-5.1 [facility] Protein [Mass/Vol] 6.9 g/dL 6.4-8.2 [facility] Sodium [Moles/Vol] 139 mmol/L 136-145 [facility] WBC (Bld) [#/Vol] 14.6 10*3/uL 4.4-11.0 [facility] Blood erythrocytes count (nu mber/volume)Ordered By: Howard Zimmerman on 05-28-2023 RBC (Bld) [#/Vol] 4.08 10*6/uL 4.2-5.4 [facility] Blood hemoglobin measurement (mass/volume)Ordered By: Howard Zimmerman on 05-28-2023 Hemoglobin (Bld) [Mass/Vol] 12.1 g/dL 12.0-15.0 [facility] Blood lymphocytes/100 leukoc ytesOrdered By: Howard Zimmerman on 05-28-2023 Lymphocytes/100 WBC (Bld) 50.7 % 19-41 [facility] Blood manual differential co mment interpretation (narrative result)Ordered By: Howard Zimmerman on 05-28-2023 Manual differential comment Porter (Bld) [Interp] See comment [facility] Comment on above: LYMPHOCYTOSIS NOTED Blood monocytes/100 leukocyt esOrdered By: Howard Zimmerman on 05-28-2023 Monocytes/100 WBC (Bld) 8.2 % 0-10 [facility] Blood platelet mean volumeOr dered By: Howard Zimmerman on 05-28-2023 Platelet mean volume (Bld) [Entitic vol] 10.3 fL 6.2-12.0 [facility] Determination of erythrocyte mean corpuscular volume (MCV)Ordered By: Howard Zimmerman on 05-28-2023 MCV (RBC) [Entitic vol] 94.9 fL 81-99 [facility] Hematocrit Auto (Bld) [Volum e fraction]Ordered By: Howard Zimmerman on 05-28-2023 Hematocrit (Bld) [Volume fraction] 38.7 % 37-47 [facility] Laboratory - Chemistry and C hemistry - challengeOrdered By: Howard Zimmerman on 05-28-2023 ALP [Catalytic activity/Vol] 96 U/L 45-117 [facility] ALT [Catalytic activity/Vol] 14 U/L 13-56 [facility] CO2 [Moles/Vol] 31.0 mmol/L 21.0-32.0 [facility] Globulin (S) [Mass/Vol] 3.5 g/dL 2.2-4.2 [facility] Urea nitrogen/Creatinine [Mass ratio] 20.9 mg/mg 10-20 [facility] - Hematology and Cell countsOrdered By: Howard Zimmerman on 05-28-2023 Erythrocyte distribution width (RBC) [Entitic vol] 48.9 fL 35.1-43.9 [facility] Erythrocyte distribution width (RBC) [Ratio] 14.0 % 11.6-14.6 [facility] Immature granulocytes/100 WBC (Bld) 0.200 % 0.0-0.9 [facility] Comment on above: IG% - Immature Granu locytes (promyelocytes, myelocytes and metamyelocytes) > 1% indicates that a LEFT SHIFT is Present. MCH (RBC) [Entitic mass] 29.7 pg 27.0-32.0 [facility] Nucleated RBC/100 WBC (Bld) [Ratio] 0 % 0-5 [facility] MCHC Auto (RBC) [Mass/Vol]Or dered By: Howard Zimmerman on 05-28-2023 MCHC (RBC) [Mass/Vol] 31.3 g/dL 32-36 [facility] No Panel InformationOrdered By: Howard Zimmerman on 05-28-2023 Estimated GFR (MDRD) Amer 57 mL/min >60 [facility] Comment on above: GFR Calc Estimated GFR (MDRD) Non-Af Amer 47 mL/min >60 [facility] Comment on above: Non- GFR Calc Thyroid Stimulating Hormone (TSH) 1.37 uIU/mL 0.358-3.74 [facility] Vitamin D 25-Hydroxy 46.6 ng/mL [facility] Comment on above: Vitamin D 25(OH) Sta tus Range Deficiency <20 ng/mL (50nmol/L) Insufficiency 20 - 30 ng/mL (50 - 75 nmol/L) Sufficiency 30 - 100 ng/mL (75 - 250 nmol/L) Toxicity >100 ng/mL (>250 nmol/L) Platelets bldOrdered By: Howard Zimmerman on 05-28-2023 Platelets (Bld) [#/Vol] 425 10*3/uL 150-450 [facility] Serum or plasma albumin fran urement (mass/volume)Ordered By: Howard Zimmerman on 05-28-2023 Albumin [Mass/Vol] 3.4 g/dL 3.2-5.0 [facility] Serum or plasma albumin/glob ulin mass ratioOrdered By: Howard Zimmerman on 05-28-2023 Albumin/Globulin [Mass ratio] 1.0 {ratio} 0.9-2.4 [facility] Serum or plasma calcium fran urement (mass/volume)Ordered By: Howard Zimmerman on 05-28-2023 Calcium [Mass/Vol] 8.8 mg/dL 8.5-10.1 [facility] Serum or plasma creatinine m easurement (mass/volume)Ordered By: Howard Zimmerman on 05-28-2023 Creatinine [Mass/Vol] 1.15 mg/dL 0.55-1.02 [facility] Comment on above: The validity of the calculated GFR & GFRAA in patients over 70 years has not been determined. Clinical correlation is essential. Serum or plasma urea nitroge n measurement (mass/volume)Ordered By: Howard Zimmerman on 05-28-2023 Urea nitrogen [Mass/Vol] 24 mg/dL 7-18 [facility] Thin prep Papanicolaou smear with manual screeningOrdered By: Howard Zimmerman 05-28-2023 Thin prep Papanicolaou smear with manual screening 31 U/L 15-37 [facility] Thin prep Papanicolaou smear with manual screening 4 5-15 [facility] Laboratory - Microbiology an d Antimicrobial susceptibilityOrdered By: Howard Zimmerman 05-15-2023 SARS-CoV-2 (COVID-19) RNA DEONTE+probe Ql (Unsp spec) SARS-CoV-2 (COVID 19 PCR) [facility] SARS-CoV-2 (COVID-19) RNA DEONTE+probe Ql (Unsp spec) SARS-CoV-2 (COVID 19 PCR) [facility] No Panel InformationOrdered By: Howard Zimmerman on 05-15-2023 Influenza Types A,B Direct FA (ARIANNA) [facility] Influenza Types A,B Direct FA (ARIANNA) [facility] RSV Ag EIAOrdered By: Howard almaraz on 05-15-2023 RSV Ag Immune stain Ql (Tiss) [facility] RSV Ag Immune stain Ql (Tiss) [facility] Absolute lymphocyte countOrd ered By: Howard Zimmerman on 05-14-2023 Lymphocytes Auto (Unsp spec) [#/Vol] 6.75 10*3/uL 0.83-4.51 [facility] Basophil percentageOrdered B y: Howard Zimmerman on 05-14-2023 Basophils/100 WBC (Bld) 2.8 % 0-1 [facility] Chloride [Moles/Vol] 103 mmol/L 98-107 [facility] Eosinophils/100 WBC (Bld) 0.3 % 0-5 [facility] Glucose [Mass/Vol] 112 mg/dL 74-106 [facility] Comment on above: Fasting Glucose resu lt from 100 to 125 mg/dL suggests IMPAIRED HOMEOSTASIS per A.D.A. criteria. Neutrophils (Bld) [#/Vol] 3.2 10*3/uL 2.0-7.7 [facility] Neutrophils/100 WBC (Bld) 26.9 % 47-70 [facility] Potassium [Moles/Vol] 4.1 mmol/L 3.5-5.1 [facility] Comment on above: Slight Hemolysis, Re sult may be falsely increased. Sodium [Moles/Vol] 139 mmol/L 136-145 [facility] WBC (Bld) [#/Vol] 11.8 10*3/uL 4.4-11.0 [facility] Blood erythrocytes count (nu mber/volume)Ordered By: Howard Zimmerman on 05-14-2023 RBC (Bld) [#/Vol] 4.26 10*6/uL 4.2-5.4 [facility] Blood hemoglobin measurement (mass/volume)Ordered By: Howard Zimmerman on 05-14-2023 Hemoglobin (Bld) [Mass/Vol] 12.8 g/dL 12.0-15.0 [facility] Blood lymphocytes/100 leukoc ytesOrdered By: Howard Zimmerman on 05-14-2023 Lymphocytes/100 WBC (Bld) 57.1 % 19-41 [facility] Blood manual differential co mment interpretation (narrative result)Ordered By: Howard Zimmerman on 05-14-2023 Manual differential comment Porter (Bld) [Interp] SCANNED [facility] Comment on above: LYMPHOCYTOSIS NOTED Blood monocytes/100 leukocyt esOrdered By: Howard Zimmerman on 05-14-2023 Monocytes/100 WBC (Bld) 12.6 % 0-10 [facility] Blood platelet mean volumeOr dered By: Howard Zimmerman on 05-14-2023 Platelet mean volume (Bld) [Entitic vol] 10.9 fL 6.2-12.0 [facility] Culture, urineOrdered By: Keith Zimmerman on 05-14-2023 Bacteria identified Cx Nom (U) Culture exhibits no growth. [facility] Bacteria identified Cx Nom (U) Culture exhibits no growth. [facility] Determination of erythrocyte mean corpuscular volume (MCV)Ordered By: Howard Zimmerman on 05-14-2023 MCV (RBC) [Entitic vol] 95.3 fL 81-99 [facility] Hematocrit Auto (Bld) [Volum e fraction]Ordered By: Howard Zimmerman on 05-14-2023 Hematocrit (Bld) [Volume fraction] 40.6 % 37-47 [facility] - Chemistry and C hemistry - challengeOrdered By: Howard Zimmerman on 05-14-2023 CO2 [Moles/Vol] 28.0 mmol/L 21.0-32.0 [facility] Urea nitrogen/Creatinine [Mass ratio] 15.8 mg/mg 10-20 [facility] - Hematology and Cell countsOrdered By: Howard Zimmerman on 05-14-2023 Erythrocyte distribution width (RBC) [Entitic vol] 50.0 fL 35.1-43.9 [facility] Erythrocyte distribution width (RBC) [Ratio] 14.2 % 11.6-14.6 [facility] Immature granulocytes/100 WBC (Bld) 0.300 % 0.0-0.9 [facility] Comment on above: IG% - Immature Granu locytes (promyelocytes, myelocytes and metamyelocytes) > 1% indicates that a LEFT SHIFT is Present. MCH (RBC) [Entitic mass] 30.0 pg 27.0-32.0 [facility] Nucleated RBC/100 WBC (Bld) [Ratio] 0 % 0-5 [facility] MCHC Auto (RBC) [Mass/Vol]Or dered By: Howard Zimmerman on 05-14-2023 MCHC (RBC) [Mass/Vol] 31.5 g/dL 32-36 [facility] No Panel InformationOrdered By: Howard Zimmerman on 05-14-2023 Estimated GFR (MDRD) Amer 49 mL/min >60 [facility] Comment on above: GFR Calc Estimated GFR (MDRD) Non-Af Amer 40 mL/min >60 [facility] Comment on above: Non- GFR Calc Platelets bldOrdered By: Howard Zimmerman on 05-14-2023 Platelets (Bld) [#/Vol] 333 10*3/uL 150-450 [facility] Serum or plasma calcium fran urement (mass/volume)Ordered By: Howard Zimmerman on 05-14-2023 Calcium [Mass/Vol] 8.5 mg/dL 8.5-10.1 [facility] Serum or plasma creatinine m easurement (mass/volume)Ordered By: Howard Zimmerman on 05-14-2023 Creatinine [Mass/Vol] 1.33 mg/dL 0.55-1.02 [facility] Comment on above: The validity of the calculated GFR & GFRAA in patients over 70 years has not been determined. Clinical correlation is essential. Serum or plasma urea nitroge n measurement (mass/volume)Ordered By: Howard Zimmerman on 05-14-2023 Urea nitrogen [Mass/Vol] 21 mg/dL 7-18 [facility] Thin prep Papanicolaou smear with manual screeningOrdered By: Howard Zimmerman on 05-14-2023 Thin prep Papanicolaou smear with manual screening 8 5-15 [facility] No Panel InformationOrdered By: Adam Alonso on 05-08-2023 Miscellaneous Test See comment [facility] Comment on above: Sent directly to [facility] per ordering physician. Absolute lymphocyte countOrd ered By: Howard Zimmerman on 04-02-2023 Lymphocytes Auto (Unsp spec) [#/Vol] 8.16 10*3/uL 0.83-4.51 [facility] Basophil percentageOrdered B y: Howard Zimmerman on 04-02-2023 Basophils/100 WBC (Bld) 2.5 % 0-1 [facility] Bilirubin [Mass/Vol] 0.50 mg/dL 0.20-1.[address] [facility] Comment on above: For patients on eltr ombopag therapy, use of [place] TBIL is not recommended. Chloride [Moles/Vol] 103 mmol/L 98-107 [facility] Eosinophils/100 WBC (Bld) 0.9 % 0-5 [facility] Glucose [Mass/Vol] 102 mg/dL 74-106 [facility] Comment on above: Fasting Glucose resu lt from 100 to 125 mg/dL suggests IMPAIRED HOMEOSTASIS per A.D.A. criteria. Neutrophils (Bld) [#/Vol] 7.1 10*3/uL 2.0-7.7 [facility] Neutrophils/100 WBC (Bld) 41.0 % 47-70 [facility] Potassium [Moles/Vol] 4.1 mmol/L 3.5-5.1 [facility] Protein [Mass/Vol] 6.8 g/dL 6.4-8.2 [facility] Sodium [Moles/Vol] 137 mmol/L 136-145 [facility] WBC (Bld) [#/Vol] 17.4 10*3/uL 4.4-11.0 [facility] Blood erythrocytes count (nu mber/volume)Ordered By: Howard Zimmerman on 04-02-2023 RBC (Bld) [#/Vol] 4.08 10*6/uL 4.2-5.4 [facility] Blood hemoglobin measurement (mass/volume)Ordered By: Howard Zimmerman on 04-02-2023 Hemoglobin (Bld) [Mass/Vol] 12.1 g/dL 12.0-15.0 [facility] Blood lymphocytes/100 leukoc ytesOrdered By: Howard Zimmerman on 04-02-2023 Lymphocytes/100 WBC (Bld) 46.9 % 19-41 [facility] Blood manual differential co mment interpretation (narrative result)Ordered By: Howard Zimmerman on 04-02-2023 Manual differential comment Porter (Bld) [Interp] COMMENT [facility] Comment on above: LYMPHOCYTOSIS. Blood monocytes/100 leukocyt esOrdered By: Howard Zimmerman on 04-02-2023 Monocytes/100 WBC (Bld) 8.3 % 0-10 [facility] Blood platelet mean volumeOr dered By: Howard Zimmerman on 04-02-2023 Platelet mean volume (Bld) [Entitic vol] 9.8 fL 6.2-12.0 [facility] Determination of erythrocyte mean corpuscular volume (MCV)Ordered By: Howard Zimmerman on 04-02-2023 MCV (RBC) [Entitic vol] 94.1 fL 81-99 [facility] Hematocrit Auto (Bld) [Volum e fraction]Ordered By: Howard Zimmerman on 04-02-2023 Hematocrit (Bld) [Volume fraction] 38.4 % 37-47 [facility] Laboratory - Chemistry and C hemistry - challengeOrdered By: [facility] on 04-02-2023 ALP [Catalytic activity/Vol] 91 U/L 45-117 [facility] ALT [Catalytic activity/Vol] 8 U/L 13-56 [facility] CO2 [Moles/Vol] 29.0 mmol/L 21.0-32.0 [facility] Globulin (S) [Mass/Vol] 3.3 g/dL 2.2-4.2 [facility] Urea nitrogen/Creatinine [Mass ratio] 18.3 mg/mg 10-20 [facility] - Hematology and Cell countsOrdered By: [facility] Erasmo on 04-02-2023 Erythrocyte distribution width (RBC) [Entitic vol] 47.0 fL 35.1-43.9 [facility] Erythrocyte distribution width (RBC) [Ratio] 13.6 % 11.6-14.6 [facility] Immature granulocytes/100 WBC (Bld) 0.400 % 0.0-0.9 [facility] Comment on above: IG% - Immature Granu locytes (promyelocytes, myelocytes and metamyelocytes) > 1% indicates that a LEFT SHIFT is Present. MCH (RBC) [Entitic mass] 29.7 pg 27.0-32.0 [facility] Nucleated RBC/100 WBC (Bld) [Ratio] 0 % 0-5 [facility] MCHC Auto (RBC) [Mass/Vol]Or dered By: Howard Zimmerman on 04-02-2023 MCHC (RBC) [Mass/Vol] 31.5 g/dL 32-36 [facility] No Panel InformationOrdered By: Howard Zimmerman on 04-02-2023 Estimated GFR (MDRD) Amer 55 mL/min >60 [facility] Comment on above: GFR Calc Estimated GFR (MDRD) Non-Af Amer 45 mL/min >60 [facility] Comment on above: Non- GFR Calc Platelets bldOrdered By: Howard Zimmerman on 04-02-2023 Platelets (Bld) [#/Vol] 349 10*3/uL 150-450 [facility] Serum or plasma albumin fran urement (mass/volume)Ordered By: Howard Zimmerman on 04-02-2023 Albumin [Mass/Vol] 3.5 g/dL 3.2-5.0 [facility] Serum or plasma albumin/glob ulin mass ratioOrdered By: Howard Zimmerman on 04-02-2023 Albumin/Globulin [Mass ratio] 1.1 {ratio} 0.9-2.4 [facility] Serum or plasma calcium fran urement (mass/volume)Ordered By: Howard Zimmerman on 04-02-2023 Calcium [Mass/Vol] 9.0 mg/dL 8.5-10.1 [facility] Serum or plasma creatinine m easurement (mass/volume)Ordered By: Howard Zimmerman on 04-02-2023 Creatinine [Mass/Vol] 1.20 mg/dL 0.55-1.02 [facility] Comment on above: The validity of the calculated GFR & GFRAA in patients over 70 years has not been determined. Clinical correlation is essential. Serum or plasma urea nitroge n measurement (mass/volume)Ordered By: Howard Zimmerman on 04-02-2023 Urea nitrogen [Mass/Vol] 22 mg/dL 7-18 [facility] Thin prep Papanicolaou smear with manual screeningOrdered By: Howard Zimmerman on 04-02-2023 Thin prep Papanicolaou smear with manual screening 25 U/L 15-37 [facility] Thin prep Papanicolaou smear with manual screening 5 5-15 [facility] CNPNon 03-18-2023 APOLINAR Telephone ([employer]) KAYLENE HAYNES ( ) 1935 F Date [...] Encounter Status:Closed by AYANNA GARZA on 03/19/23 [facility] Absolute lymphocyte countOrd ered By: Howard Zimmerman on 02-21-2023 Lymphocytes Auto (Unsp spec) [#/Vol] 6.55 10*3/uL 0.83-4.51 [facility] Basophil percentageOrdered B y: Howard Zimmerman on 02-21-2023 Basophils/100 WBC (Bld) 2.3 % 0-1 [facility] Bilirubin [Mass/Vol] 0.70 mg/dL 0.20-1.00 [facility] Comment on above: For patients on eltr ombopag therapy, use of [place] TBIL is not recommended. Chloride [Moles/Vol] 102 mmol/L 98-107 [facility] Eosinophils/100 WBC (Bld) 2.3 % 0-5 [facility] Glucose [Mass/Vol] 94 mg/dL 74-106 [facility] Neutrophils (Bld) [#/Vol] 7.3 10*3/uL 2.0-7.7 [facility] Neutrophils/100 WBC (Bld) 45.2 % 47-70 [facility] Potassium [Moles/Vol] 3.8 mmol/L 3.5-5.1 [facility] Protein [Mass/Vol] 7.1 g/dL 6.4-8.2 [facility] Sodium [Moles/Vol] 137 mmol/L 136-145 [facility] WBC (Bld) [#/Vol] 16.3 10*3/uL 4.4-11.0 [facility] Blood erythrocytes count (nu mber/volume)Ordered By: Howard Zimmerman on 02-21-2023 RBC (Bld) [#/Vol] 4.25 10*6/uL 4.2-5.4 [facility] Blood hemoglobin measurement (mass/volume)Ordered By: Howard Zimmerman on 02-21-2023 Hemoglobin (Bld) [Mass/Vol] 12.7 g/dL 12.0-15.0 [facility] Blood lymphocytes/100 leukoc ytesOrdered By: Howard Zimmerman on 02-21-2023 Lymphocytes/100 WBC (Bld) 40.3 % 19-41 [facility] Blood manual differential co mment interpretation (narrative result)Ordered By: Howard Zimmerman on 02-21-2023 Manual differential comment Porter (Bld) [Interp] COMMENT [facility] Comment on above: LYMPHOCYTOSIS.MONOCY TOSIS. Blood monocytes/100 leukocyt esOrdered By: Howard Zimmerman on 02-21-2023 Monocytes/100 WBC (Bld) 9.5 % 0-10 [facility] Blood platelet mean volumeOr dered By: Howard Zimmerman on 02-21-2023 Platelet mean volume (Bld) [Entitic vol] 9.5 fL 6.2-12.0 [facility] Determination of erythrocyte mean corpuscular volume (MCV)Ordered By: Howard Zimmerman on 02-21-2023 MCV (RBC) [Entitic vol] 94.8 fL 81-99 [facility] Hematocrit Auto (Bld) [Volum e fraction]Ordered By: Howard Zimmerman on 02-21-2023 Hematocrit (Bld) [Volume fraction] 40.3 % 37-47 [facility] Laboratory - Chemistry and C hemistry - challengeOrdered By: [facility] Erasmo on 02-21-2023 ALP [Catalytic activity/Vol] 110 U/L 45-117 [facility] ALT [Catalytic activity/Vol] 13 U/L 13-56 [facility] CO2 [Moles/Vol] 28.0 mmol/L 21.0-32.0 [facility] Globulin (S) [Mass/Vol] 3.5 g/dL 2.2-4.2 [facility] Urea nitrogen/Creatinine [Mass ratio] 17.1 mg/mg 10-20 [facility] - Hematology and Cell countsOrdered By: Howard Zimmerman on 02-21-2023 Erythrocyte distribution width (RBC) [Entitic vol] 46.6 fL 35.1-43.9 [facility] Erythrocyte distribution width (RBC) [Ratio] 13.4 % 11.6-14.6 [facility] Immature granulocytes/100 WBC (Bld) 0.400 % 0.0-0.9 [facility] Comment on above: IG% - Immature Granu locytes (promyelocytes, myelocytes and metamyelocytes) > 1% indicates that a LEFT SHIFT is Present. MCH (RBC) [Entitic mass] 29.9 pg 27.0-32.0 [facility] Nucleated RBC/100 WBC (Bld) [Ratio] 0 % 0-5 [facility] MCHC Auto (RBC) [Mass/Vol]Or dered By: Howard Zimmerman on 02-21-2023 MCHC (RBC) [Mass/Vol] 31.5 g/dL 32-36 [facility] No Panel InformationOrdered By: Howard Zimmerman on 02-21-2023 Estimated GFR (MDRD) Amer 53 mL/min >60 [facility] Comment on above: GFR Calc Estimated GFR (MDRD) Non-Af Amer 44 mL/min >60 [facility] Comment on above: Non- GFR Calc Thyroid Stimulating Hormone (TSH) 2.25 uIU/mL 0.358-3.74 [facility] Vitamin D 25-Hydroxy 57.4 ng/mL [facility] Comment on above: Vitamin D 25(OH) Sta tus Range Deficiency <20 ng/mL (50nmol/L) Insufficiency 20 - 30 ng/mL (50 - 75 nmol/L) Sufficiency 30 - 100 ng/mL (75 - 250 nmol/L) Toxicity >100 ng/mL (>250 nmol/L) Platelets bldOrdered By: Howard Zimmerman on 02-21-2023 Platelets (Bld) [#/Vol] 372 10*3/uL 150-450 [facility] Review by pathologistOrdered By: Howard Zimmerman on 02-21-2023 Pathologist review Porter (Unsp spec) [Interp] Reviewed [facility] Comment on above: Previous reported re sult: Heide mckenna Edited by: RGOOD on 02/22/23:1321Leukocytosis.Clinical correlation necessary.Nilton Flaherty M.D. 02/22/23 AMENDED REPORT 02/22/23 1321 PATH REV previously reported as: Heide mckenna Serum or plasma albumin fran urement (mass/volume)Ordered By: Howard Zimmerman on 02-21-2023 Albumin [Mass/Vol] 3.6 g/dL 3.2-5.0 [facility] Serum or plasma albumin/glob ulin mass ratioOrdered By: Howard Zimmerman on 02-21-2023 Albumin/Globulin [Mass ratio] 1.0 {ratio} 0.9-2.4 [facility] Serum or plasma calcium fran urement (mass/volume)Ordered By: Howard Zimmerman on 02-21-2023 Calcium [Mass/Vol] 9.1 mg/dL 8.5-10.1 [facility] Serum or plasma creatinine m easurement (mass/volume)Ordered By: Howard Zimmemran on 02-21-2023 Creatinine [Mass/Vol] 1.23 mg/dL 0.55-1.02 [facility] Comment on above: The validity of the calculated GFR & GFRAA in patients over 70 years has not been determined. Clinical correlation is essential. Serum or plasma urea nitroge n measurement (mass/volume)Ordered By: Howard Zimmerman on 02-21-2023 Urea nitrogen [Mass/Vol] 21 mg/dL 7-18 [facility] Thin prep Papanicolaou smear with manual screeningOrdered By: Howard Zimmerman on 02-21-2023 Thin prep Papanicolaou smear with manual screening 28 U/L 15 [facility] Thin prep Papanicolaou smear with manual screening 7 5-15 [facility] Basophil percentageOrdered B y: Gonzalez Garza on 01-16-2023 Cholesterol [Mass/Vol] 187 mg/dL <200 [facility] Comment on above: <200 mg/dL Desirable 200-240 mg/dL Borderline >240 mg/dL High Risk Triglyceride [Mass/Vol] 129 mg/dL <199 [facility] Comment on above: The drugs N-Acetylcy steine and Metamizole may falsely depress this assay.Serum Triglycerides Reference Interval Normal <150 mg/dL Borderline high 150 - 199 mg/dL High 200 - 499 mg/dL Very High > or = 500 mg/dL Serum or plasma cholesterol in HDL measurement (mass/volume)Ordered By: Gonzalez Garza on 01-16-2023 Cholesterol in HDL [Mass/Vol] 59 mg/dL >40 [facility] Comment on above: The drugs N-Acetylcy steine and Metamizole may falsely depress this assay. Reference Range HDL <40 mg/dL Low HDL Cholesterol HDL >or= 60 mg/dL High HDL Cholesterol Serum or plasma cholesterol in VLDL measurement (mass/volume)Ordered By: Gonzalez Garza on 01-16-2023 Cholesterol in VLDL [Mass/Vol] 26 mg/dL 5-40 [facility] Serum or plasma low density lipoprotein (LDL) cholesterol measurement (mass/volume)Ordered By: Gonzalez Garza on 01-16-2023 Cholesterol in LDL [Mass/Vol] 102 mg/dL 0-130 [facility] Absolute lymphocyte countOrd ered By: Stephanie Gonzalez on 01-15-2023 Lymphocytes Auto (Unsp spec) [#/Vol] 4.97 10*3/uL 0.83-4.51 [facility] Basophil percentageOrdered B y: Stephanie Gonzalez on 01-15-2023 Basophils/100 WBC (Bld) 2.4 % 0-1 [facility] Chloride [Moles/Vol] 102 mmol/L 98-107 [facility] Eosinophils/100 WBC (Bld) 1.3 % 0-5 [facility] Glucose [Mass/Vol] 153 mg/dL 74-106 [facility] Comment on above: Fasting Glucose resu lt greater than or equal to 126 mg/dL suggests DIABETES MELLITUS per A.D.A. criteria. Neutrophils (Bld) [#/Vol] 5.6 10*3/uL 2.0-7.7 [facility] Neutrophils/100 WBC (Bld) 45.8 % 47-70 [facility] Potassium [Moles/Vol] 3.9 mmol/L 3.5-5.1 [facility] Sodium [Moles/Vol] 134 mmol/L 136-145 [facility] WBC (Bld) [#/Vol] 12.2 10*3/uL 4.4-11.0 [facility] Blood erythrocytes count (nu mber/volume)Ordered By: Stephanie Gonzalez on 01-15-2023 RBC (Bld) [#/Vol] 3.67 10*6/uL 4.2-5.4 [facility] Blood hemoglobin measurement (mass/volume)Ordered By: Stephanie Gonzalez on 01-15-2023 Hemoglobin (Bld) [Mass/Vol] 11.4 g/dL 12.0-15.0 [facility] Blood lymphocytes/100 leukoc ytesOrdered By: Stephanie Gonzalez on 01-15-2023 Lymphocytes/100 WBC (Bld) 40.9 % 19-41 [facility] Blood monocytes/100 leukocyt esOrdered By: Stephanie Gonzalez on 01-15-2023 Monocytes/100 WBC (Bld) 9.2 % 0-10 [facility] Blood platelet mean volumeOr dered By: Stephanie Gonzalez on 01-15-2023 Platelet mean volume (Bld) [Entitic vol] 9.0 fL 6.2-12.0 [facility] Determination of erythrocyte mean corpuscular volume (MCV)Ordered By: Stephanie Gonzalez on 01-15-2023 MCV (RBC) [Entitic vol] 93.7 fL 81-99 [facility] Hematocrit Auto (Bld) [Volum e fraction]Ordered By: Stephanie Gonzalez on 01-15-2023 Hematocrit (Bld) [Volume fraction] 34.4 % 37-47 [facility] INR in Blood by Coagulation assayOrdered By: Stephanie Gonzalez on 01-15-2023 INR Coag (Bld) [Relative time] 1.1 {INR} [facility] Laboratory - Chemistry and C hemistry - challengeOrdered By: Stephanie Gonzalez on 01-15-2023 CO2 [Moles/Vol] 29.0 mmol/L 21.0-32.0 [facility] Urea nitrogen/Creatinine [Mass ratio] 15.8 mg/mg 10-20 [facility] Laboratory - CoagulationOrde red By: Stephanie Gonzalez on 01-15-2023 aPTT Coag (Bld) [Time] 25.4 s 24.1-36.2 [facility] PT Coag (PPP) [Time] 14.1 s 11.7-14.9 [facility] Laboratory - Hematology and Cell countsOrdered By: Stephanie Gonzalez on 01-15-2023 Erythrocyte distribution width (RBC) [Entitic vol] 46.2 fL 35.1-43.9 [facility] Erythrocyte distribution width (RBC) [Ratio] 13.4 % 11.6-14.6 [facility] Immature granulocytes/100 WBC (Bld) 0.400 % 0.0-0.9 [facility] Comment on above: IG% - Immature Granu locytes (promyelocytes, myelocytes and metamyelocytes) > 1% indicates that a LEFT SHIFT is Present. MCH (RBC) [Entitic mass] 31.1 pg 27.0-32.0 [facility] Nucleated RBC/100 WBC (Bld) [Ratio] 0 % 0-5 [facility] MCHC Auto (RBC) [Mass/Vol]Or dered By: Stephanie Gonzalez on 01-15-2023 MCHC (RBC) [Mass/Vol] 33.1 g/dL 32-36 [facility] No Panel InformationOrdered By: Stephanie Gonzalez on 01-15-2023 Estimated Creatinine Clearance Calc 21.86 ml/min [facility] Estimated GFR (MDRD) Amer 49 mL/min >60 [facility] Comment on above: GFR Calc Estimated GFR (MDRD) Non-Af Amer 40 mL/min >60 [facility] Comment on above: Non- GFR Calc Troponin I High Sensitivity 5 pg/mL 3.0-54.0 [facility] Comment on above: Please Note: New Shreya t Units and Gender Specific Reference Ranges. For more information see Policy Stat Procedure [place] High Sensitivity Troponin (TNIH) and attachments. Platelets bldOrdered By: Ary Gonzalez on 01-15-2023 Platelets (Bld) [#/Vol] 313 10*3/uL 150-450 [facility] Serum or plasma calcium fran urement (mass/volume)Ordered By: Stephanie Gonzalez on 01-15-2023 Calcium [Mass/Vol] 8.2 mg/dL 8.5-10.1 [facility] Serum or plasma creatinine m easurement (mass/volume)Ordered By: Stephanie Gonzalez on 01-15-2023 Creatinine [Mass/Vol] 1.33 mg/dL 0.55-1.02 [facility] Comment on above: The validity of the calculated GFR & GFRAA in patients over 70 years has not been determined. Clinical correlation is essential. Serum or plasma urea nitroge n measurement (mass/volume)Ordered By: Stephanie Gonzalez on 01-15-2023 Urea nitrogen [Mass/Vol] 21 mg/dL 7-18 [facility] Thin prep Papanicolaou smear with manual screeningOrdered By: Stephanie Gonzalez on 01-15-2023 Thin prep Papanicolaou smear with manual screening 3 5-15 [facility] COVID-19 virus antigen assay Ordered By: Dr. Zimmerman on 12-08-2022 SARS-CoV-2 (COVID-19) Ag IA.rapid Ql (Resp) Not detected Not Detect [facility] Comment on above: Normal Reference [...] Types A,B Direct FA (ARIANNA) Influenzae A [facility] No Panel InformationOrdered By: Dr. Zimmerman on 12-08-2022 Influenza Types A,B Direct FA (ARIANNA) Influenzae A [facility] RSV Ag EIAOrdered By: Howard almaraz on 12-08-2022 RSV Ag Immune stain Ql (Tiss) [facility] RSV Ag EIAOrdered By: Dr. Rikki almaraz on 12-08-2022 RSV Ag Immune stain Ql (Tiss) [facility] No Panel InformationOrdered By: Dr. Cobb on 08-30-2022 Miscellaneous Test See comment [facility] Comment on above: Sent directly to [facility] per ordering physician. Absolute lymphocyte countOrd ered By: Dr. Pinon on 08-29-2022 Lymphocytes Auto (Unsp spec) [#/Vol] 7.48 10*3/uL 0.83-4.51 [facility] Basophil percentageOrdered B y: Dr. Pinon on 08-29-2022 Basophil percentage 3.9 mg/dL 2.5-4.9 [facility] Basophils/100 WBC (Bld) 2.8 % 0-1 [facility] Bilirubin [Mass/Vol] 0.40 mg/dL 0.20-1.00 [facility] Comment on above: For patients on eltr ombopag therapy, use of Dimension [place] TBIL is not recommended. Chloride [Moles/Vol] 104 mmol/L 98-107 [facility] Eosinophils/100 WBC (Bld) 2.7 % 0-5 [facility] Glucose [Mass/Vol] 94 mg/dL 74-106 [facility] Neutrophils (Bld) [#/Vol] 4.9 10*3/uL 2.0-7.7 [facility] Neutrophils/100 WBC (Bld) 33.6 % 47-70 [facility] Potassium [Moles/Vol] 4.0 mmol/L 3.5-5.1 [facility] Protein [Mass/Vol] 7.2 g/dL 6.4-8.2 [facility] Sodium [Moles/Vol] 140 mmol/L 136-145 [facility] WBC (Bld) [#/Vol] 14.7 10*3/uL 4.4-11.0 [facility] Blood erythrocytes count (nu mber/volume)Ordered By: Dr. Pinon on 08-29-2022 RBC (Bld) [#/Vol] 4.30 10*6/uL 4.2-5.4 [facility] Blood hemoglobin measurement (mass/volume)Ordered By: Dr. Pinon on 08-29-2022 Hemoglobin (Bld) [Mass/Vol] 13.1 g/dL 12.0-15.0 [facility] Blood lymphocytes/100 leukoc ytesOrdered By: Dr. Pinon on 08-29-2022 Lymphocytes/100 WBC (Bld) 50.9 % 19-41 [facility] Blood manual differential co mment interpretation (narrative result)Ordered By: Dr. Pinon on 08-29-2022 Manual differential comment Porter (Bld) [Interp] SCANNED [facility] Comment on above: LYMPHOCYTOSIS NOTED Blood monocytes/100 leukocyt esOrdered By: [address] Pinon on 08-29-2022 Monocytes/100 WBC (Bld) 9.8 % 0-10 [facility] Blood platelet mean volumeOr dered By: Dr. Pinon on 08-29-2022 Platelet mean volume (Bld) [Entitic vol] 10.3 fL 6.2-12.0 [facility] Determination of erythrocyte mean corpuscular volume (MCV)Ordered By: Dr. Pinon on 08-29-2022 MCV (RBC) [Entitic vol] 95.3 fL 81-99 [facility] Hematocrit Auto (Bld) [Volum e fraction]Ordered By: Dr. Pinon on 08-29-2022 Hematocrit (Bld) [Volume fraction] 41.0 % 37-47 [facility] Laboratory - Chemistry and C hemistry - challengeOrdered By: Dr. Pinon on 08-29-2022 ALP [Catalytic activity/Vol] 91 U/L 45-117 [facility] ALT [Catalytic activity/Vol] 17 U/L 13-56 [facility] CO2 [Moles/Vol] 29.0 mmol/L 21.0-32.0 [facility] Globulin (S) [Mass/Vol] 3.6 g/dL 2.2-4.2 [facility] Urea nitrogen/Creatinine [Mass ratio] 17.8 mg/mg 10-20 [facility] Laboratory - Hematology and Cell countsOrdered By: Dr. Pinon on 08-29-2022 Erythrocyte distribution width (RBC) [Entitic vol] 47.4 fL 35.1-43.9 [facility] Erythrocyte distribution width (RBC) [Ratio] 13.5 % 11.6-14.6 [facility] Immature granulocytes/100 WBC (Bld) 0.200 % 0.0-0.9 [facility] Comment on above: IG% - Immature Granu locytes (promyelocytes, myelocytes and metamyelocytes) > 1% indicates that a LEFT SHIFT is Present. MCH (RBC) [Entitic mass] 30.5 pg 27.0-32.0 [facility] Nucleated RBC/100 WBC (Bld) [Ratio] 0 % 0-5 [facility] MCHC Auto (RBC) [Mass/Vol]Or dered By: Dr. Pinon on 08-29-2022 MCHC (RBC) [Mass/Vol] 32.0 g/dL 32-36 [facility] No Panel InformationOrdered By: Dr. Pinon on 08-29-2022 Estimated GFR (MDRD) Amer 56 mL/min >60 [facility] Comment on above: GFR Calc Estimated GFR (MDRD) Non-Af Amer 46 mL/min >60 [facility] Comment on above: Non- GFR Calc Thyroid Stimulating Hormone (TSH) 3.01 uIU/mL 0.358-3.74 [facility] Vitamin D 25-Hydroxy 52.0 ng/mL [facility] Comment on above: Vitamin D 25(OH) Sta tus Range Deficiency <20 ng/mL (50nmol/L) Insufficiency 20 - 30 ng/mL (50 - 75 nmol/L) Sufficiency 30 - 100 ng/mL (75 - 250 nmol/L) Toxicity >100 ng/mL (>250 nmol/L) Platelets bldOrdered By: Dr. Pinon on 08-29-2022 Platelets (Bld) [#/Vol] 380 10*3/uL 150-450 [facility] Serum or plasma albumin fran urement (mass/volume)Ordered By: Dr. Pinon on 08-29-2022 Albumin [Mass/Vol] 3.6 g/dL 3.2-5.0 [facility] Serum or plasma albumin/glob ulin mass ratioOrdered By: Dr. Pinon on 08-29-2022 Albumin/Globulin [Mass ratio] 1.0 {ratio} 0.9-2.4 [facility] Serum or plasma calcium fran urement (mass/volume)Ordered By: Dr. Pinon on 08-29-2022 Calcium [Mass/Vol] 9.0 mg/dL 8.5-10.1 [facility] Serum or plasma creatinine m easurement (mass/volume)Ordered By: Dr. Pinon on 08-29-2022 Creatinine [Mass/Vol] 1.18 mg/dL 0.55-1.02 [facility] Comment on above: The validity of the calculated GFR & GFRAA in patients over 70 years has not been determined. Clinical correlation is essential. Serum or plasma urea nitroge n measurement (mass/volume)Ordered By: Dr. Pinon on 08-29-2022 Urea nitrogen [Mass/Vol] 21 mg/dL 7-18 [facility] Thin prep Papanicolaou smear with manual screeningOrdered By: Dr. Pinon on 08-29-2022 Thin prep Papanicolaou smear with manual screening 34 U/L 15-37 [facility] Thin prep Papanicolaou smear with manual screening 7 5-15 [facility] CNTHERAPYon 07-18-2022 CNTHERAPY OT/PT/Speech Visit (LDPT) KAYLENE HAYNES ([id number]) 1935 F Date Time Provider Department 07/18/22 [...] of Care: created on 07/18/22 through 09/16/22 [place] in home exercise program. Patient will demonstrate [...] Planned: 8 Planned Treatment Interventions: Therapeutic exercise (49576), Neuromuscular re-education (28918), Therapeutic activities (44907), Patient/Family/Caregiv er Education, Gait Training (99802) PLAN FOR NEXT VISIT: pt would like [...] Retired Recreation / Current Exercise: exercises at [facility] 3 days/week AND goes to Parkinsons group exercise class 2 days/week at [facility] Home Environment Patient Lives With: Self/Alone [...] is th (more content not included)... Normal [facility] Fungus cultureOrdered By: Dr Liu Zimmerman on 07-06-2022 Fungus identified Cx Nom (Unsp spec) [facility] Fungus stainOrdered By: Dr. Zimmerman on 07-06-2022 Fungus identified Fungus stain Nom (Unsp spec) [facility] GLEN SCREENINGon 06-30-2022 [facility] No Panel InformationOrdered By: Dr. Zimmerman on 06-01-2022 Methicillin-Resist S.aureus DNA PCR Negative Negative [facility] Staphylococcus aureus DNA de tection by probe and target amplification methodOrdered By: Dr. Zimmerman on 06-01-2022 S. aureus DNA DEONTE+probe Ql (Unsp spec) Negative Negative [facility] Absolute lymphocyte countOrd ered By: Dr. Zimmerman on 05-25-2022 Lymphocytes Auto (Unsp spec) [#/Vol] 6.59 10*3/uL 0.83-4.51 [facility] Basophil percentageOrdered B y: Dr. Zimmerman on 05-25-2022 Basophils/100 WBC (Bld) 2.5 % 0-1 [facility] Bilirubin [Mass/Vol] 0.40 mg/dL 0.20-1.00 [facility] Comment on above: For patients on eltr ombopag therapy, use of Dimension [place] TBIL is not recommended. Chloride [Moles/Vol] 102 mmol/L 98-107 [facility] Eosinophils/100 WBC (Bld) 1.9 % 0-5 [facility] Glucose [Mass/Vol] 97 mg/dL 74-106 [facility] Neutrophils (Bld) [#/Vol] 7.1 10*3/uL 2.0-7.7 [facility] Neutrophils/100 WBC (Bld) 43.8 % 47-70 [facility] Potassium [Moles/Vol] 4.2 mmol/L 3.5-5.1 [facility] Protein [Mass/Vol] 6.8 g/dL 6.4-8.2 [facility] Sodium [Moles/Vol] 138 mmol/L 136-145 [facility] WBC (Bld) [#/Vol] 16.2 10*3/uL 4.4-11.0 [facility] Blood erythrocytes count (nu mber/volume)Ordered By: Dr. Zimmerman on 05-25-2022 RBC (Bld) [#/Vol] 3.96 10*6/uL 4.2-5.4 [facility] Blood hemoglobin measurement (mass/volume)Ordered By: Dr. Zimmerman on 05-25-2022 Hemoglobin (Bld) [Mass/Vol] 12.5 g/dL 12.0-15.0 [facility] Blood lymphocytes/100 leukoc ytesOrdered By: Dr. Zimmerman on 05-25-2022 Lymphocytes/100 WBC (Bld) 40.8 % 19-41 [facility] Blood manual differential co mment interpretation (narrative result)Ordered By: Dr. Zimmerman on 05-25-2022 Manual differential comment Porter (Bld) [Interp] SCANNED [facility] Comment on above: LYMPHOCYTOSIS NOTEDM ONOCYTOSIS NOTED Blood monocytes/100 leukocyt esOrdered By: Dr. Zimmerman on 05-25-2022 Monocytes/100 WBC (Bld) 10.6 % 0-10 [facility] Blood platelet mean volumeOr dered By: Dr. Zimmerman on 05-25-2022 Platelet mean volume (Bld) [Entitic vol] 9.5 fL 6.2-12.0 [facility] Determination of erythrocyte mean corpuscular volume (MCV)Ordered By: Dr. Zimmerman on 05-25-2022 MCV (RBC) [Entitic vol] 95.5 fL 81-99 [facility] Hematocrit Auto (Bld) [Volum e fraction]Ordered By: Dr. Zimmerman on 05-25-2022 Hematocrit (Bld) [Volume fraction] 37.8 % 37-47 [facility] Laboratory - Chemistry and C hemistry - challengeOrdered By: Dr. Zimmerman on 05-25-2022 ALP [Catalytic activity/Vol] 86 U/L 45-117 [facility] ALT [Catalytic activity/Vol] 11 U/L 13-56 [facility] CO2 [Moles/Vol] 31.0 mmol/L 21.0-32.0 [facility] Globulin (S) [Mass/Vol] 3.5 g/dL 2.2-4.2 [facility] Urea nitrogen/Creatinine [Mass ratio] 16.0 mg/mg 10-20 [facility] Laboratory - Hematology and Cell countsOrdered By: Dr. Zimmerman on 05-25-2022 Erythrocyte distribution width (RBC) [Entitic vol] 48.0 fL 35.1-43.9 [facility] Erythrocyte distribution width (RBC) [Ratio] 13.6 % 11.6-14.6 [facility] Immature granulocytes/100 WBC (Bld) 0.400 % 0.0-0.9 [facility] Comment on above: IG% - Immature Granu locytes (promyelocytes, myelocytes and metamyelocytes) > 1% indicates that a LEFT SHIFT is Present. MCH (RBC) [Entitic mass] 31.6 pg 27.0-32.0 [facility] Nucleated RBC/100 WBC (Bld) [Ratio] 0 % 0-5 [facility] MCHC Auto (RBC) [Mass/Vol]Or dered By: Dr. Zimmerman on 05-25-2022 MCHC (RBC) [Mass/Vol] 33.1 g/dL 32-36 [facility] No Panel InformationOrdered By: Dr. Zimmerman on 05-25-2022 Estimated GFR (MDRD) Amer 50 mL/min >60 [facility] Comment on above: GFR Calc Estimated GFR (MDRD) Non-Af Amer 41 mL/min >60 [facility] Comment on above: Non- GFR Calc Thyroid Stimulating Hormone (TSH) 2.03 uIU/mL 0.358-3.74 [facility] Vitamin D 25-Hydroxy 37.9 ng/mL [facility] Comment on above: Vitamin D 25(OH) Sta tus Range Deficiency <20 ng/mL (50nmol/L) Insufficiency 20 - 30 ng/mL (50 - 75 nmol/L) Sufficiency 30 - 100 ng/mL (75 - 250 nmol/L) Toxicity >100 ng/mL (>250 nmol/L) Platelets bldOrdered By: Dr. Zimmerman on 05-25-2022 Platelets (Bld) [#/Vol] 376 10*3/uL 150-450 [facility] Review by pathologistOrdered By: Dr. Zimmerman on 05-25-2022 Pathologist review Porter (Unsp spec) [Interp] Reviewed [facility] Comment on above: Previous reported re sult: Heide mckenna Edited by: BINA on 05/26/22:1207Leukocytosis. Clinical correlation necessary.Nilton Flaherty M.D. 05/26/22 AMENDED REPORT 05/26/22 1207 PATH REV previously reported as: Heide mckenna Serum or plasma albumin fran urement (mass/volume)Ordered By: Dr. Zimmerman on 05-25-2022 Albumin [Mass/Vol] 3.3 g/dL 3.2-5.0 [facility] Serum or plasma albumin/glob ulin mass ratioOrdered By: Dr. Zimmerman on 05-25-2022 Albumin/Globulin [Mass ratio] 0.9 {ratio} 0.9-2.4 [facility] Serum or plasma calcium fran urement (mass/volume)Ordered By: Dr. Zimmerman on 05-25-2022 Calcium [Mass/Vol] 9.0 mg/dL 8.5-10.1 [facility] Serum or plasma creatinine m easurement (mass/volume)Ordered By: Dr. Zimmerman on 05-25-2022 Creatinine [Mass/Vol] 1.31 mg/dL 0.55-1.02 [facility] Comment on above: The validity of the calculated GFR & GFRAA in patients over 70 years has not been determined. Clinical correlation is essential. Serum or plasma urea nitroge n measurement (mass/volume)Ordered By: Dr. Zimmerman on 05-25-2022 Urea nitrogen [Mass/Vol] 21 mg/dL 7-18 [facility] Thin prep Papanicolaou smear with manual screeningOrdered By: Dr. Zimmerman on 05-25-2022 Thin prep Papanicolaou smear with manual screening 25 U/L 15-37 [facility] Thin prep Papanicolaou smear with manual screening 5 5-15 [facility] Absolute lymphocyte countOrd ered By: Bart Bhandari on 05-12-2022 Lymphocytes Auto (Unsp spec) [#/Vol] 4.67 10*3/uL 0.83-4.51 [facility] Basophil percentageOrdered B y: Bart Bhandari on 05-12-2022 Basophils/100 WBC (Bld) 1.5 % 0-1 [facility] Chloride [Moles/Vol] 103 mmol/L 98-107 [facility] Eosinophils/100 WBC (Bld) 0.3 % 0-5 [facility] Glucose [Mass/Vol] 106 mg/dL 74-106 [facility] Comment on above: Fasting Glucose resu lt from 100 to 125 mg/dL suggests IMPAIRED HOMEOSTASIS per A.D.A. criteria. Neutrophils (Bld) [#/Vol] 9.3 10*3/uL 2.0-7.7 [facility] Neutrophils/100 WBC (Bld) 59.5 % 47-70 [facility] Potassium [Moles/Vol] 4.2 mmol/L 3.5-5.1 [facility] Sodium [Moles/Vol] 140 mmol/L 136-145 [facility] WBC (Bld) [#/Vol] 15.7 10*3/uL 4.4-11.0 [facility] Blood erythrocytes count (nu mber/volume)Ordered By: Bart Bhandari on 05-12-2022 RBC (Bld) [#/Vol] 4.06 10*6/uL 4.2-5.4 [facility] Blood hemoglobin measurement (mass/volume)Ordered By: Bart Bhandari on 05-12-2022 Hemoglobin (Bld) [Mass/Vol] 12.8 g/dL 12.0-15.0 [facility] Blood lymphocytes/100 leukoc ytesOrdered By: Bart Bhandari on 05-12-2022 Lymphocytes/100 WBC (Bld) 29.8 % 19-41 [facility] Blood monocytes/100 leukocyt esOrdered By: Bart Bhandari on 05-12-2022 Monocytes/100 WBC (Bld) 8.5 % 0-10 [facility] Blood platelet mean volumeOr dered By: Bart Bhandari on 05-12-2022 Platelet mean volume (Bld) [Entitic vol] 9.1 fL 6.2-12.0 [facility] Determination of erythrocyte mean corpuscular volume (MCV)Ordered By: Bart Bhandari on 05-12-2022 MCV (RBC) [Entitic vol] 96.1 fL 81-99 [facility] Hematocrit Auto (Bld) [Volum e fraction]Ordered By: Bart Bhandari on 05-12-2022 Hematocrit (Bld) [Volume fraction] 39.0 % 37-47 [facility] - Chemistry and C hemistry - challengeOrdered By: Bart Bhandari on 05-12-2022 CO2 [Moles/Vol] 32.0 mmol/L 21.0-32.0 [facility] Urea nitrogen/Creatinine [Mass ratio] 17.1 mg/mg 10-20 [facility] - Hematology and Cell countsOrdered By: Bart Bhandari on 05-12-2022 Erythrocyte distribution width (RBC) [Entitic vol] 48.5 fL 35.1-43.9 [facility] Erythrocyte distribution width (RBC) [Ratio] 13.6 % 11.6-14.6 [facility] Immature granulocytes/100 WBC (Bld) 0.400 % 0.0-0.9 [facility] Comment on above: IG% - Immature Granu locytes (promyelocytes, myelocytes and metamyelocytes) > 1% indicates that a LEFT SHIFT is Present. MCH (RBC) [Entitic mass] 31.5 pg 27.0-32.0 [facility] Nucleated RBC/100 WBC (Bld) [Ratio] 0 % 0-5 [facility] MCHC Auto (RBC) [Mass/Vol]Or dered By: Bart Bhandari on 05-12-2022 MCHC (RBC) [Mass/Vol] 32.8 g/dL 32-36 [facility] No Panel InformationOrdered By: Bart Bhandari on 05-12-2022 Troponin I High Sensitivity 5 pg/mL 3.0-54.0 [facility] Comment on above: Please Note: New Shreya t Units and Gender Specific Reference Ranges. For more information see Policy Stat Procedure [place] High Sensitivity Troponin (TNIH) and attachments. Estimated Creatinine Clearance Calc 25.17 ml/min [facility] Estimated GFR (MDRD) Amer 56 mL/min >60 [facility] Comment on above: GFR Calc Estimated GFR (MDRD) Non-Af Amer 47 mL/min >60 [facility] Comment on above: Non- GFR Calc Platelets bldOrdered By: Eliana Bhandari on 05-12-2022 Platelets (Bld) [#/Vol] 382 10*3/uL 150-450 [facility] Serum or plasma calcium fran urement (mass/volume)Ordered By: Bart Bhandari on 05-12-2022 Calcium [Mass/Vol] 9.6 mg/dL 8.5-10.1 [facility] Serum or plasma creatinine m easurement (mass/volume)Ordered By: Bart Bhandari on 05-12-2022 Creatinine [Mass/Vol] 1.17 mg/dL 0.55-1.02 [facility] Comment on above: The validity of the calculated GFR & GFRAA in patients over 70 years has not been determined. Clinical correlation is essential. Serum or plasma urea nitroge n measurement (mass/volume)Ordered By: Bart Bhandari on 05-12-2022 Urea nitrogen [Mass/Vol] 20 mg/dL 7-18 [facility] Thin prep Papanicolaou smear with manual screeningOrdered By: Bart Bhandari on 05-12-2022 Thin prep Papanicolaou smear with manual screening 5 5-15 [facility] Basophil percentageOrdered B y: Dr. Zimmerman on 04-19-2022 Chloride [Moles/Vol] 106 mmol/L 98-107 [facility] Glucose [Mass/Vol] 89 mg/dL 74-106 [facility] Potassium [Moles/Vol] 4.4 mmol/L 3.5-5.1 [facility] Sodium [Moles/Vol] 138 mmol/L 136-145 [facility] Laboratory - Chemistry and C hemistry - challengeOrdered By: Dr. Zimmerman on 04-19-2022 CO2 [Moles/Vol] 29.0 mmol/L 21.0-32.0 [facility] Urea nitrogen/Creatinine [Mass ratio] 16.4 mg/mg 10-20 [facility] No Panel InformationOrdered By: Dr. Zimmerman on 04-19-2022 Estimated GFR (MDRD) Amer 54 mL/min >60 [facility] Comment on above: GFR Calc Estimated GFR (MDRD) Non-Af Amer 44 mL/min >60 [facility] Comment on above: Non- GFR Calc Serum or plasma calcium fran urement (mass/volume)Ordered By: Dr. Zimmerman on 04-19-2022 Calcium [Mass/Vol] 9.0 mg/dL 8.5-10.1 [facility] Serum or plasma creatinine m easurement (mass/volume)Ordered By: Dr. Zimmerman on 04-19-2022 Creatinine [Mass/Vol] 1.22 mg/dL 0.55-1.02 [facility] Comment on above: The validity of the calculated GFR & GFRAA in patients over 70 years has not been determined. Clinical correlation is essential. Serum or plasma urea nitroge n measurement (mass/volume)Ordered By: Dr. Zimmerman on 04-19-2022 Urea nitrogen [Mass/Vol] 20 mg/dL 7-18 [facility] Thin prep Papanicolaou smear with manual screeningOrdered By: Dr. Zimmerman on 04-19-2022 Thin prep Papanicolaou smear with manual screening 3 5-15 [facility] [facility] - Microbiology an d Antimicrobial susceptibilityOrdered By: Dr. Zimmerman on 04-07-2022 SARS-CoV-2 (COVID-19) RNA DEONTE+probe Ql (Unsp spec) Not detected Not Detect [facility] Comment on above: Normal Reference Ran ge: Not DetectedMethod:(RT-PCR) real-time reverse transcriptase PCRLuminex THOMAS Instrument*The Food and Drug Administration (FDA) has issued an Emergency Use Authorization (EAU) for the [employer] SARS-CoV-2 Assay for the rapid detection of [...] 04-07-2022 Influenza Types A,B Direct FA (ARIANNA) [facility] RSV Ag EIAOrdered By: Dr. Rikki almaraz on 04-07-2022 RSV Ag Immune stain Ql (Tiss) [facility] - Microbiology an d Antimicrobial susceptibilityon 03-30-2022 SARS-CoV-2 (COVID-19) RNA DEONTE+probe Ql (Unsp spec) Not detected [facility] No Panel Informationon 03-30 POC Nasal Swab Influenza A,B Not detected [facility] POC Nasal Swab RSV Not detected [facility] - Microbiology an d Antimicrobial susceptibilityon 03-07-2022 SARS-CoV-2 (COVID-19) RNA DEONTE+probe Ql (Unsp spec) Not detected Not Detect [facility] Work Phone: Comment on above: [...] Auto (Unsp spec) [#/Vol] 8.34 10*3/uL 0.83-4.51 [facility] Work Phone: Basophil percentageon 2021 Basophils/100 WBC (Bld) 2.3 % 0-1 [facility] Work Phone: Bilirubin [Mass/Vol] 0.50 mg/dL 0.20-1.00 [facility] Work Phone: Comment on above: For patients on eltr ombopag therapy, use of Dimension [place] TBIL is not recommended. Chloride [Moles/Vol] 103 mmol/L 98-107 [facility] Work Phone: Eosinophils/100 WBC (Bld) 1.1 % 0-5 [facility] Work Phone: Glucose [Mass/Vol] 105 mg/dL 74-106 [facility] Work Phone: Comment on above: Fasting Glucose resu lt from 100 to 125 mg/dL suggests IMPAIRED HOMEOSTASIS per A.D.A. criteria. Neutrophils (Bld) [#/Vol] 7.4 10*3/uL 2.0-7.7 [facility] Work Phone: Neutrophils/100 WBC (Bld) 42.2 % 47-70 [facility] Work Phone: Potassium [Moles/Vol] 4.3 mmol/L 3.5-5.1 [facility] Work Phone: Protein [Mass/Vol] 7.3 g/dL 6.4-8.2 [facility] Work Phone: Sodium [Moles/Vol] 140 mmol/L 136-145 [facility] Work Phone: WBC (Bld) [#/Vol] 17.4 10*3/uL 4.4-11.0 [facility] Work Phone: Blood erythrocytes count (nu mber/volume)on 03-06-2022 RBC (Bld) [#/Vol] 4.15 10*6/uL 4.2-5.4 [facility] Work Phone: Blood hemoglobin measurement (mass/volume)on 03-06-2022 Hemoglobin (Bld) [Mass/Vol] 12.7 g/dL 12.0-15.0 [facility] Work Phone: [phone] Blood lymphocytes/100 leukoc yteson 03-06-2022 Lymphocytes/100 WBC (Bld) 48.0 % 19-41 [facility] Work Phone: Blood manual differential co mment interpretation (narrative result)on 03-06-2022 Manual differential comment Porter (Bld) [Interp] See comment [facility] Work Phone: Comment on above: LYMPHOCYTOSIS NOTED Blood monocytes/100 leukocyt eson 03-06-2022 Monocytes/100 WBC (Bld) 6.1 % 0-10 [facility] Work Phone: Blood platelet adequacy dete ction by light microscopyon 03-06-2022 Platelets LM Ql (Bld) ADEQUATE ADEQ [facility] Work Phone: Blood platelet mean volumeon 03-06-2022 Platelet mean volume (Bld) [Entitic vol] 10.3 fL 6.2-12.0 [facility] Work Phone: Determination of erythrocyte mean corpuscular volume (MCV)on 03-06-2022 MCV (RBC) [Entitic vol] 94.7 fL 81-99 [facility] Work Phone: Hematocrit Auto (Bld) [Volum e fraction]on 03-06-2022 Hematocrit (Bld) [Volume fraction] 39.3 % 37-47 [facility] Work Phone: Laboratory - Chemistry and C hemistry - challengeon 03-06-2022 ALP [Catalytic activity/Vol] 86 U/L 45-117 [facility] Work Phone: ALT [Catalytic activity/Vol] 11 U/L 13-56 [facility] Work Phone: CO2 [Moles/Vol] 31.0 mmol/L 21.0-32.0 [facility] Work Phone: Globulin (S) [Mass/Vol] 3.7 g/dL 2.2-4.2 [facility] Work Phone: Urea nitrogen/Creatinine [Mass ratio] 16.1 mg/mg 10-20 [facility] Work Phone: Laboratory - Hematology and Cell countson 03-06-2022 Erythrocyte distribution width (RBC) [Entitic vol] 47.7 fL 35.1-43.9 [facility] Work Phone: Erythrocyte distribution width (RBC) [Ratio] 13.6 % 11.6-14.6 [facility] Work Phone: Immature granulocytes/100 WBC (Bld) 0.300 % 0.0-0.9 [facility] Work Phone: Comment on above: IG% - Immature Granu locytes (promyelocytes, myelocytes and metamyelocytes) > 1% indicates that a LEFT SHIFT is Present. MCH (RBC) [Entitic mass] 30.6 pg 27.0-32.0 [facility] Work Phone: Nucleated RBC/100 WBC (Bld) [Ratio] 0 % 0-5 [facility] Work Phone: MCHC Auto (RBC) [Mass/Vol]on 03-06-2022 MCHC (RBC) [Mass/Vol] 32.3 g/dL 32-36 [facility] Work Phone: No Panel Informationon 03-06 Atypical Lymphocytes 1+ % [facility] Work Phone: Estimated GFR (MDRD) Amer 53 mL/min >60 [facility] Work Phone: Comment on above: GFR Calc Estimated GFR (MDRD) Non-Af Amer 44 mL/min >60 [facility] Work Phone: Comment on above: Non- GFR Calc Platelets bldon 03-06-2022 Platelets (Bld) [#/Vol] 338 10*3/uL 150-450 [facility] Work Phone: RBC morphologyon 03-06-2022 RBC morphology finding Nom (Bld) NORM C+C NORMAL NORM C&C [facility] Work Phone: Serum or plasma albumin fran urement (mass/volume)on 03-06-2022 Albumin [Mass/Vol] 3.6 g/dL 3.2-5.0 [facility] Work Phone: Serum or plasma albumin/glob ulin mass ratioon 03-06-2022 Albumin/Globulin [Mass ratio] 1.0 {ratio} 0.9-2.4 [facility] Work Phone: Serum or plasma calcium fran urement (mass/volume)on 03-06-2022 Calcium [Mass/Vol] 9.7 mg/dL 8.5-10.1 [facility] Work Phone: Serum or plasma creatinine m easurement (mass/volume)on 03-06-2022 Creatinine [Mass/Vol] 1.24 mg/dL 0.55-1.02 [facility] Work Phone: Comment on above: The validity of the calculated GFR & GFRAA in patients over 70 years has not been determined. Clinical correlation is essential. Serum or plasma urea nitroge n measurement (mass/volume)on 03-06-2022 Urea nitrogen [Mass/Vol] 20 mg/dL 7-18 [facility] Work Phone: Thin prep Papanicolaou smear with manual screeningon 03-06-2022 Thin prep Papanicolaou smear with manual screening 31 U/L 15-37 [facility] Work Phone: Thin prep Papanicolaou smear with manual screening 6 5-15 [facility] Work Phone: No Panel Informationon 12-22 Miscellaneous Test See [facility]: Comment on above: Sent directly to [facility] per ordering physician. Absolute lymphocyte counton 11-21-2021 Lymphocytes Auto (Unsp spec) [#/Vol] 10.68 10*3/uL 0.83-4.51 [facility] Work Phone: Basophil percentageon 2021 Basophils/100 WBC (Bld) 2.7 % 0-1 [facility] Work Phone: Bilirubin [Mass/Vol] 0.40 mg/dL 0.20-1.00 [facility]: Comment on above: For patients on eltr ombopag therapy, use of Dimension [place] TBIL is not recommended. Chloride [Moles/Vol] 104 mmol/L 98-107 [facility] Work Phone: Eosinophils/100 WBC (Bld) 2.6 % 0-5 [facility] Work Phone: Glucose [Mass/Vol] 97 mg/dL 74-106 [facility] Work Phone: Neutrophils (Bld) [#/Vol] 5.6 10*3/uL 2.0-7.7 [facility] Work Phone: Neutrophils/100 WBC (Bld) 29.6 % 47-70 [facility] Work Phone: Potassium [Moles/Vol] 4.1 mmol/L 3.5-5.1 [facility] Work Phone: Protein [Mass/Vol] 7.1 g/dL 6.4-8.2 [facility] Work Phone: Sodium [Moles/Vol] 136 mmol/L 136-145 [facility] Work Phone: WBC (Bld) [#/Vol] 19.0 10*3/uL 4.4-11.0 [facility] Work Phone: Blood erythrocytes count (nu mber/volume)on 11-21-2021 RBC (Bld) [#/Vol] 4.03 10*6/uL 4.2-5.4 [facility] Work Phone: Blood hemoglobin measurement (mass/volume)on 11-21-2021 Hemoglobin (Bld) [Mass/Vol] 12.0 g/dL 12.0-15.0 [facility] Work Phone: Blood lymphocytes/100 leukoc yteson 11-21-2021 Lymphocytes/100 WBC (Bld) 56.3 % 19-41 [facility] Work Phone: Blood manual differential co mment interpretation (narrative result)on 11-21-2021 Manual differential comment Porter (Bld) [Interp] SEE COMMENTS [facility] Work Phone: Comment on above: LYMPHOCYTOSIS NOTEDM ONOCYTOSIS NOTED Blood monocytes/100 leukocyt eson 11-21-2021 Monocytes/100 WBC (Bld) 8.5 % 0-10 [facility] Work Phone: Blood platelet adequacy dete ction by light microscopyon 11-21-2021 Platelets LM Ql (Bld) ADEQUATE ADEQ [facility] Work Phone: Blood platelet mean volumeon 11-21-2021 Platelet mean volume (Bld) [Entitic vol] 10.7 fL 6.2-12.0 [facility] Work Phone: Determination of erythrocyte mean corpuscular volume (MCV)on 11-21-2021 MCV (RBC) [Entitic vol] 92.6 fL 81-99 [facility] Work Phone: Hematocrit Auto (Bld) [Volum e fraction]on 11-21-2021 Hematocrit (Bld) [Volume fraction] 37.3 % 37-47 [facility] Work Phone: Laboratory - Chemistry and C hemistry - challengeon 11-21-2021 ALP [Catalytic activity/Vol] 136 U/L 45-117 [facility] Work Phone: ALT [Catalytic activity/Vol] 10 U/L 13-56 [facility] Work Phone: CO2 [Moles/Vol] 28.0 mmol/L 21.0-32.0 [facility] Work Phone: Globulin (S) [Mass/Vol] 3.6 g/dL 2.2-4.2 [facility] Work Phone: Urea nitrogen/Creatinine [Mass ratio] 21.5 mg/mg 10-20 [facility] Work Phone: Laboratory - Hematology and Cell countson 11-21-2021 Anisocytosis Ql (Bld) RARE [facility] Work Phone: Erythrocyte distribution width (RBC) [Entitic vol] 46.7 fL 35.1-43.9 [facility] Work Phone: Erythrocyte distribution width (RBC) [Ratio] 13.7 % 11.6-14.6 [facility] Work Phone: Immature granulocytes/100 WBC (Bld) 0.300 % 0.0-0.9 [facility] Work Phone: Comment on above: IG% - Immature Granu locytes (promyelocytes, myelocytes and metamyelocytes) > 1% indicates that a LEFT SHIFT is Present. MCH (RBC) [Entitic mass] 29.8 pg 27.0-32.0 [facility] Work Phone: Nucleated RBC/100 WBC (Bld) [Ratio] 0 % 0-5 [facility] Work Phone: MCHC Auto (RBC) [Mass/Vol]on 11-21-2021 MCHC (RBC) [Mass/Vol] 32.2 g/dL 32-36 [facility] Work Phone: Macrocytes detectionon 11-21 Macrocytes Ql (Bld) RARE [facility] Work Phone: No Panel Informationon 11-21 Atypical Lymphocytes 1+ % [facility] Work Phone: Estimated GFR (MDRD) Amer 54 mL/min >60 [facility] Work Phone: Comment on above: GFR Calc Estimated GFR (MDRD) Non-Af Amer 45 mL/min >60 [facility] Work Phone: Comment on above: Non- GFR Calc Thyroid Stimulating Hormone (TSH) 1.52 uIU/mL 0.358-3.74 [facility] Work Phone: Vitamin D 25-Hydroxy 62.6 ng/mL [facility] Work Phone: Comment on above: Vitamin D 25(OH) Sta tus Range Deficiency <20 ng/mL (50nmol/L) Insufficiency 20 - 30 ng/mL (50 - 75 nmol/L) Sufficiency 30 - 100 ng/mL (75 - 250 nmol/L) Toxicity >100 ng/mL (>250 nmol/L) Platelets bldon 11-21-2021 Platelets (Bld) [#/Vol] 267 10*3/uL 150-450 [facility] Work Phone: RBC morphologyon 11-21-2021 RBC morphology finding Nom (Bld) N CHROM NORMAL NORM C&C [facility] Work Phone: Review by pathologiston Pathologist review Porter (Unsp spec) [Interp] Reviewed [facility] Work Phone: Comment on above: Previous reported re sult: Heide mckenna Edited by: BINA on 11/22/21:1313Leukocytosis and absolute lymphocytosis.Clinical correlation necessary.Nilton Flaherty M.D. 11/22/21 AMENDED REPORT 11/22/21 1313 PATH REV previously reported as: Heide mckenna Serum or plasma albumin fran urement (mass/volume)on 11-21-2021 Albumin [Mass/Vol] 3.5 g/dL 3.2-5.0 [facility] Work Phone: Serum or plasma albumin/glob ulin mass ratioon 11-21-2021 Albumin/Globulin [Mass ratio] 1.0 {ratio} 0.9-2.4 [facility] Work Phone: Serum or plasma calcium fran urement (mass/volume)on 11-21-2021 Calcium [Mass/Vol] 8.8 mg/dL 8.5-10.1 [facility] Work Phone: Serum or plasma creatinine m easurement (mass/volume)on 11-21-2021 Creatinine [Mass/Vol] 1.21 mg/dL 0.55-1.02 [facility] Work Phone: Comment on above: The validity of the calculated GFR & GFRAA in patients over 70 years has not been determined. Clinical correlation is essential. Serum or plasma urea nitroge n measurement (mass/volume)on 11-21-2021 Urea nitrogen [Mass/Vol] 26 mg/dL 7-18 [facility] Work Phone: Thin prep Papanicolaou smear with manual screeningon 11-21-2021 Thin prep Papanicolaou smear with manual screening 34 U/L 15-37 [facility] Work Phone: Thin prep Papanicolaou smear with manual screening 4 5-15 [facility] Work Phone: PROGRESSon 05-31-2020 PROGRESS HNO ID: [id number] Author: Sridevi Solo Service: ? Author Type: [...] this time was used for counseling. Normal [facility] Basic Metabolic Panelon 12-0 Calcium [Mass/Vol] 9.4 mg/dL Normal 8.4-10.4 [facility] Comment on above: Performed By: #### B MP3, HEMOG #### [facility] [address] [place], [place] Anion gap [Moles/Vol] 7 Normal [facility] Comment on above: Performed By: #### B MP3, HEMOG #### [facility] [address] [place], [place] CO2 [Moles/Vol] 28 mmol/L Normal 22-30 [facility] Comment on above: Performed By: #### B MP3, HEMOG #### [facility] [address] [place], [place] Creatinine [Mass/Vol] 0.91 mg/dL Normal 0.52-1.25 [facility] Comment on above: Performed By: #### B MP3, HEMOG #### [facility] [address] [place] [address] GFR/1.73 sq M predicted among blacks MDRD (S/P/Bld) [Vol rate/Area] mL/min/{1.73_m2} Normal >60 [facility] Comment on above: Performed By: #### B MP3, HEMOG #### [facility] [address] [place] [address] GFR/1.73 sq M predicted among non-blacks MDRD (S/P/Bld) [Vol rate/Area] 59.0 mL/min/{1.73_m2} Normal >60 [facility] Comment on above: Result Comment: Sour ce- MDRD equation with creatinine calibration to IDMS(NKDEP) eGFR not recommended for drug dose adjustment Performed By: #### B MP3, HEMOG #### [facility] [address] [place], [place] Glucose [Mass/Vol] 90 mg/dL Normal 70-100 [facility] Comment on above: Performed By: #### B MP3, HEMOG #### [place] [address] [place], [place] Urea nitrogen [Mass/Vol] 20 mg/dL Normal 7-20 [facility] Comment on above: Performed By: #### B MP3, HEMOG #### [facility] [address] [place], [place] Chloride [Moles/Vol] 102 mmol/L Normal 98-107 [facility] Comment on above: Performed By: #### B MP3, HEMOG #### [facility] [address] [place], [place] Potassium [Moles/Vol] 4.5 mmol/L Normal 3.5-5.1 [facility] Comment on above: Performed By: #### B MP3, HEMOG #### [facility] [address] [place], [place] Sodium [Moles/Vol] 138 mmol/L Normal 135-145 [facility] Comment on above: Performed By: #### B MP3, HEMOG #### [address] [address] Anion gap [Moles/Vol] 7 mmol/L [place], [place] Calcium [Mass/Vol] 9.4 mg/dL 8.4 - 10. 4 mg/dL [place], [place] Chloride [Moles/Vol] 102 mmol/L 98 - 10 7 mmol/L [place] CO2 [Moles/Vol] 28 mmol/L 22 - 30 mmol/L [place] Creatinine [Mass/Vol] 0.91 mg/dL 0.52 - 1.25 mg/dL [place] EGFR IF NonAfrican [place]uvian 59.0 mL/min >60 [place] Comment on above: Source- MDRD equatio n with creatinine calibration to IDMS(NKDEP) eGFR not recommended for drug dose adjustment GFR/1.73 sq M predicted among blacks MDRD (S/P/Bld) [Vol rate/Area] mL/min/{1.73_m2} >60 mL/min [place], [place] Glucose [Mass/Vol] 90 mg/dL 70 - 100 mg/dL [place] Potassium [Moles/Vol] 4.5 mmol/L 3.5 - 5.1 mmol/L [place] Sodium [Moles/Vol] 138 mmol/L 135 - 145 mmol/L [place] Urea nitrogen [Mass/Vol] 20 mg/dL 7 - 20 mg/dL [place] Test Performed by [facility], [address] [place] [id number] [place], [place] CBCon 2019 Erythrocyte distribution width (RBC) [Ratio] 13.6 % 11.5 - 14.5 % [place] Hematocrit (Bld) [Volume fraction] 38.4 % 35 - 47 % [place] Hemoglobin (Bld) [Mass/Vol] 12.7 g/dL 11.7 - 16 g/dL [place] Interpretation and review of laboratory results Abnormal [place] MCH (RBC) [Entitic mass] 30.1 pg 26 - 34 pg [place] MCHC (RBC) [Mass/Vol] 33.0 % 32 - 36 % [place], [place] MCV (RBC) [Entitic vol] 91.1 fL 79 - 98 fL [place], [place] Platelet mean volume (Bld) [Entitic vol] 8.0 fL 7.4 - 10.4 fL [place] Platelets (Bld) [#/Vol] 326 10*3/uL 140 - 440 10*3/uL [place] RBC (Bld) [#/Vol] 4.21 10*6/uL 3.8 - 5.2 10*6/uL [place] WBC (Bld) [#/Vol] 11.1 10*3/uL High 3.6 - 10.7 10*3/uL [place] Test Performed by [facility], [address] [place] [id number] [place] [address] Hemogramon 2019 Erythrocyte distribution width (RBC) [Ratio] 13.6 % Normal 11.5-14.5 [facility] Comment on above: Performed By: #### B MP3, HEMOG #### [address] Hematocrit (Bld) [Volume fraction] 38.4 % Normal 35.0-47.0 [facility] Comment on above: Performed By: #### B MP3, HEMOG #### [address] Hemoglobin (Bld) [Mass/Vol] 12.7 g/dL Normal 11.7-16.0 [facility] Comment on above: Performed By: #### B MP3, HEMOG #### [address] MCH (RBC) [Entitic mass] 30.1 pg Normal 26.0-34.0 [facility] Comment on above: Performed By: #### B MP3, HEMOG #### [address] [address] MCHC (RBC) [Mass/Vol] 33.0 % Normal 32.0-36.0 [facility] Comment on above: Performed By: #### B MP3, HEMOG #### [place] [address], [place] MCV (RBC) [Entitic vol] 91.1 fL Normal 79.0-98.0 [facility] Comment on above: Performed By: #### B MP3, HEMOG #### [place] [address], [place] Platelet mean volume (Bld) [Entitic vol] 8.0 fL Normal 7.4-10.4 [facility] Comment on above: Performed By: #### B MP3, HEMOG #### [place] [address], [place] Platelets (Bld) [#/Vol] 326 10*3/uL Normal 140-440 [facility] Comment on above: Performed By: #### B MP3, HEMOG #### [place] [address] [place], [place] RBC (Bld) [#/Vol] 4.21 10*6/uL Normal 3.80-5.20 [facility] Comment on above: Performed By: #### B MP3, HEMOG #### [place] [address], [place] WBC (Bld) [#/Vol] 11.1 10*3/uL High 3.6-10.7 [facility] Comment on above: Performed By: #### B MP3, HEMOG #### [place] [address] [place], [place] Replaced Document: [employer] E JORY Observationson 05-07-2017 EKG QRS axis 77 deg Invalid Interpretation Code [facility] Work Phone: [phone] Interpretation Sinus Bradycardia Lo w voltage with rightward P-axis and rotation -possible pulmonary disease. ABNORMAL Invalid Interpretation Code [facility] Work Phone: [phone] [place] 68 deg Invalid Interpretation Code [facility] Work Phone: [phone] OK Interval 206 ms Invalid Interpretation Code [employer] Video Phone: [phone] Pulse (Heart Rate) 53 /min Invalid Interpretation Code [facility] [employer] Phone: [phone] QRS Duration 100 ms Invalid Interpretation Code [facility] Work Phone: [phone] QT Interval new path ms Invalid Interpretation Code [facility] [employer] Phone: [phone] QTc Iglesias 392 ms Invalid Interpretation Code [facility] Work Phone: [phone] T [place] 20 deg Invalid Interpretation Code [facility] Work Phone: [phone] Office Visiton 01-08-2017 Documentation of current medications (procedure) Done Invalid Interpretation Code [facility] [employer] Phone: [phone] Clinical 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-2017 Left ventricular Ejection fraction 55 % Invalid Interpretation Code [facility] [employer] Phone: [phone] Lab Report: Basic Metabolic Profile (BMP)on 06-28-2016 Anion gap 6 mmol/L Invalid Interpretation Code 5-15 [facility] Work Phone: [phone] BUN/Creatinine Ratio 16.7 RATIO Invalid Interpretation Code 10-20 [facility] [employer] Phone: [phone] Calcium 8.6 mg/dL Invalid Interpretation Code 8.5-10.1 [facility] Work Phone: [phone] Chloride 106 mmol/L Invalid Interpretation Code 98-107 [employer] [facility] [employer] Phone: [phone] CO2 29.0 mmol/L Invalid Interpretation Code 21.0-32.0 [facility] Work Phone: [phone] Creatinine 1.02 mg/dL Invalid Interpretation Code 0.55-1.02 [employer] [facility] [employer] Phone: [phone] eGFR (non-black) 67 mL/min/{1.73_m2} Invalid Interpretation Code >60 [facility] Work Phone: [phone] eGFR (non-black) 55 mL/min/{1.73_m2} Low >60 [facility] Work Phone: [phone] Glucose mass conc 85 mg/dL Invalid Interpretation Code 70-110 [facility] Work Phone: Potassium molar conc 4.0 mmol/L Invalid Interpretation Code 3.5-5.1 [facility] Work Phone: [phone] Sodium 141 mmol/L Invalid Interpretation Code 136-145 [facility] Work Phone: [phone] Urea nitrogen 17 mg/dL Invalid Interpretation Code 7-18 [facility] Work Phone: [phone] Lab Report: CBC W/Diff, Auto matedon 06-28-2016 Absolute Neut 3.7 X10 3/UL Invalid Interpretation Code 2.0-7.7 [facility] Work Phone: [phone] Basophils/100 WBC Auto (Bld) 3.1 % High 0-1 [facility] Work Phone: [phone] Eosinophils/100 leukocytes 2.3 % Invalid Interpretation Code 0-5 [facility] Work Phone: [phone] Erythrocyte distribution width Auto Ratio (RBC) 13.4 % Invalid Interpretation Code 11.6-14.6 [facility] Work Phone: [phone] Erythrocytes (RBC) 4.40 10*6/uL Invalid Interpretation Code 4.2-5.4 [facility] Work Phone: [phone] Hematocrit (HCT) 40.9 % Invalid Interpretation Code 37-47 [facility] Work Phone: [phone] Hemoglobin mass conc (Bld) 13.2 g/dL Invalid Interpretation Code 12.0-15.0 [facility] Work Phone: [phone] Immature granulocytes/100 WBC (Bld) 0.200 % Invalid Interpretation Code 0.0-0.9 [facility] Work Phone: [phone] Lymphocytes 4.65 X10 3/UL High 0.83-4.51 [facility] Work Phone: [phone] Lymphocytes/100 leukocytes 47.3 % High 19-41 [facility] Work Phone: [phone] MCH 30.0 pg Invalid Interpretation Code 27.0-32.0 [facility] Work Phone: [phone] MCHC mass conc (RBC) 32.3 G/GL Invalid Interpretation Code 32-36 [facility] Work Phone: [phone] MCV 93.0 fL Invalid Interpretation Code 81-99 [facility] Work Phone: [phone] Monocytes/100 leukocytes 9.9 % Invalid Interpretation Code 0-10 [facility] Work Phone: [phone] Neutrophils/100 WBC Auto (Bld) 37.2 % Low 47-70 [facility] Work Phone: [phone] Platelets 357 10*3/mm3 Invalid Interpretation Code 150-450 [facility] Work Phone: [phone] PMV by Evelio 9.8 fL Invalid Interpretation Code 6.2-12.0 [facility] Work Phone: [phone] RDW SD 45.2 fL High 35.1-43.9 [facility] Work Phone: [phone] WBC (Leukocytes) 9.8 10*3/uL Invalid Interpretation Code 4.4-11.0 [employer] [facility] [employer] Phone: [phone] Lab Report: Lipid Profileon 06-28-2016 Cholesterol 160 mg/dL Invalid Interpretation Code 200 [facility] Work Phone: [phone] HDL Cholesterol 69 mg/dL Invalid Interpretation Code [facility] Work Phone: [phone] LDL Cholesterol 67 mg/dL Invalid Interpretation Code 0-130 [facility] Work Phone: [phone] Triglyceride 119 mg/dL Invalid Interpretation Code [facility] [facility] [employer] Phone: [phone] very low density lipoproteins 24 mg/dL Invalid Interpretation Code 5-40 [facility] Work Phone: [phone] Lab Report: Liver Profileon 06-28-2016 Alanine aminotransferase (ALT) U/L Low 12-78 [facility] Work Phone: [phone] Albumin 3.3 g/dL Low 3.4-5.0 [facility] Work Phone: [phone] Alkaline phosphatase (ALP) 80 U/L Invalid Interpretation Code 45-117 [facility] Work Phone: [phone] Aspartate aminotransferase (AST) 25 U/L Invalid Interpretation Code 15-37 [facility] Work Phone: [phone] Bilirubin (direct) 0.14 mg/dL Invalid Interpretation Code 0.00-0.30 [facility] Work Phone: [phone] Bilirubin (total) 0.60 mg/dL Invalid Interpretation Code 0.20-1.00 [facility] Work Phone: [phone] Globulin 3.5 g/dL Invalid Interpretation Code 2.3-3.5 [facility] Work Phone: [phone] Protein 6.8 g/dL Invalid Interpretation Code 6.4-8.2 [facility] Work Phone: [phone] Lab Report: Magnesiumon 06-18 Magnesium 2.1 mg/dL Invalid Interpretation Code 1.8-2.4 [facility] Work Phone: [phone] Office Visiton 01-03-2016 Tobacco use CPHS Never smoker Invalid Interpretation Code [facility] Work Phone: [phone] Office Visit: [facility] 06-25-19 16 General cardiovascular disease 10Y risk [#] [place] 11 % Invalid Interpretation Code [facility] Work Phone: [phone] External Other: [employer] thod of Contacton 11-23-2014 methcontact secmsg Invalid Interpretation Code [facility] Work Phone: [phone] Replaced Document: Aliya CORLEY Observationson 11-23-2014 EKG QRS axis 67 deg Invalid Interpretation Code [facility] Work Phone: [phone] Interpretation Sinus Bradycardia Lo w voltage with rightward P-axis and rotation -possible pulmonary disease. ABNORMAL Invalid Interpretation Code [facility] Work Phone: [phone] P [place] 70 deg Invalid Interpretation Code [facility] Work Phone: [phone] OK Interval 152 ms Invalid Interpretation Code [facility] Work Phone: [phone] Pulse (Heart Rate) 51 /min Invalid Interpretation Code [facility] Work Phone: [phone] QRS Duration 100 ms Invalid Interpretation Code [facility] Work Phone: [phone] QT Interval new path ms Invalid Interpretation Code [facility] Work Phone: [phone] QTc Iglesias 403 ms Invalid Interpretation Code [facility] Work Phone: [phone] T [place] -1 deg Invalid Interpretation Code [employer] Video Phone: [phone] Lab Report: Vitamin D,25 Hyd roxyon 10-07-2014 Vitamin D 25-OH 42.1 ng/mL Invalid Interpretation Code [facility] Work Phone: [phone] Lab Report: (P) CBC W/Diff, Automatedon 10-06-2014 Absolute Neut 2.4 X10 3/UL Invalid Interpretation Code 2.0-7.7 [facility] Work Phone: [phone] Lymphocytes 5.60 X10 3/UL High 0.83-4.51 [facility] Work Phone: [phone] Lab Report: Thyroid Stim Hor sean (TSH)on 10-06-2014 Thyroid stimulating hormone (TSH) 3.86 u[iU]/mL High 0.358-3.74 [facility] Work Phone: [phone] Office Visit: [facility] 05-26-20 14 cardiac risk group B Invalid Interpretation Code [facility] Work Phone: [phone] Lab Report: B12on 10-20-2013 Cobalamins (Vitamin B12) 795 pg/mL Normal 211-911 [facility] Work Phone: [phone] Lab Report: CMPon 10-20-2013 Albumin/Globulin Ratio 0.9 {ratio} Normal 0.9-2.4 [facility] Work Phone: [phone] Replaced Document: [employer] E CG Observationson 05-21-2013 Pulse (Heart Rate) 403 ms Invalid Interpretation Code [facility] Work Phone: [phone] Lab Report: METHYL - copyon 12-05-2012 METHYL 212 nmol/L Normal 73-376 [facility] Work Phone: [phone] Lab Report: TPO - copyon thyroid microsomal antibody < 6 Normal 0-34 [facility] Work Phone: [phone] Lab Report: CRPon 12-02-2012 C reactive protein (CRP) mg/L Normal 0.0-3.0 [facility] Work Phone: [phone] Lab Report: SEDon 12-02-2012 Erythrocyte sedimentation rate 13 mm/h Normal 0-30 [facility] Work Phone: Lab Report: URICon 3 Urate 3.7 mg/dL Normal 2.6-6.0 [facility] Work Phone: Clinical Lists Update: 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 [facility] Work Phone: Bacteria identified Cx Nom ( Wound) Wound Culture Staphylococcus epidermidis [facility] Work Phone: Wound Culture Staphylococcus homin is hominis [facility] Work Phone: Gram stain for investigation of transfusion reaction Microscopic observation Gram stain Nom (Unsp spec) [facility] Work Phone: No Panel Information Influenza Types A,B Direct FA (ARIANNA) [facility] Work Phone: RSV Ag EIA RSV Ag Immune stain Ql (Tiss) [facility] Work Phone: Vital Signs Date Time Vital Sign Value Performing Clinician Facility 10-20-2024 10:52-0400 Body mass index (BMI) [Ratio] 18.08 kg/m2 Selvin Felder MD Work Phone: [facility] 10-20-2024 10:52-0400 Body weight 43.4 kg Selvin Felder MD Work Phone: [facility] 10-20-2024 10:52-0400 SaO2% (BldA) [Mass fraction] 96 % Selvin Felder MD Work Phone: [facility] 04-21-2024 11:14-0500 Body mass index (BMI) [Ratio] 18.41 kg/m2 Selvin Felder MD Work Phone: [facility] 04-21-2024 11:14-0500 Body weight 44.2 kg Selvin Felder MD Work Phone: [facility] 04-21-2024 11:14-0500 SaO2% (BldA) [Mass fraction] 96 % Selvin Felder MD Work Phone: [facility] 10-18-2023 09:38-0400 Body height 154.9 cm Selvin Felder MD Work Phone: [facility] 10-18-2023 09:38-0400 Body mass index (BMI) [Ratio] 18.2 kg/m2 Selvin Felder MD Work Phone: [facility] 10-18-2023 09:38-0400 Body weight 43.7 kg Selvin Felder MD Work Phone: [facility] 10-18-2023 09:38-0400 SaO2% (BldA) [Mass fraction] 95 % Selvin Felder MD Work Phone: [facility] 10-04-2023 08:57-0400 Heart rate 66 /min Dr. Howard Zimmerman Work Phone: [facility] 10-04-2023 08:54-0400 Diastolic blood pressure 48 mm[Hg] Dr. Howard Zimmerman Work Phone: [facility] 10-04-2023 08:54-0400 Systolic blood pressure 93 mm[Hg] Dr. Howard Zimmerman Work Phone: [facility] 10-04-2023 08:53-0400 Body temperature 97.5 [degF] Dr. Howard Zimmerman Work Phone: [facility] 10-04-2023 08:53-0400 Respiratory rate 16 /min Dr. Howard Zimmerman Work Phone: [facility] 10-04-2023 08:53-0400 SaO2% (BldA) [Mass fraction] 92 % Dr. Howard Zimmerman Work Phone: [facility] 10-02-2023 11:34-0400 Body mass index (BMI) [Ratio] 18.8 kg/m2 Dr. Howard Zimmerman Work Phone: [facility] 10-02-2023 11:34-0400 Body weight 43.[address] Howard Zimmerman Work Phone: [facility] 09-26-2023 13:36-0400 Body height 152.[address] Howard Zimmerman Work Phone: [facility] 09-19-2023 14:32-0400 Body mass index (BMI) [Ratio] 18.3 kg/m2 Dr. Howard Zimmerman Work Phone: [facility] 09-19-2023 14:32-0400 Body weight 42.[address] Howard Zimmerman Work Phone: [facility] 09-19-2023 14:32-0400 Diastolic blood pressure 69 mm[Hg] Dr. Howard Zimmerman Work Phone: 9(709)771-888576 [place] [address] 09-19-2023 14:32-0400 Heart rate 76 /min Dr. Howard Zimmerman Work Phone: 8(513)729-822876 [place] [address] 09-19-2023 14:32-0400 Respiratory rate 18 /min Dr. Howard Zimmerman Work Phone: [facility] 09-19-2023 14:32-0400 SaO2% (BldA) [Mass fraction] 96 % Dr. Howard Zimmerman Work Phone: [facility] 09-19-2023 14:32-0400 Systolic blood pressure 122 mm[Hg] Dr. Howard Zimmerman Work Phone: [facility] 09-14-2023 14:22-0400 Body temperature 97.9 [degF] Dr. Howard Zimmerman Work Phone: [facility] 09-14-2023 14:22-0400 Diastolic blood pressure 88 mm[Hg] Dr. Howard Zimmerman Work Phone: [facility] 09-14-2023 14:22-0400 Heart rate 84 /min Dr. Howard Zimmerman Work Phone: [facility] 09-14-2023 14:22-0400 Respiratory rate 16 /min Dr. Howard Zimmerman Work Phone: 9(898)586-974176 [place] [address] 09-14-2023 14:22-0400 SaO2% (BldA) [Mass fraction] 97 % Dr. Howard Zimmerman Work Phone: [facility] 09-14-2023 14:22-0400 Systolic blood pressure 133 mm[Hg] Dr. Howard Zimmerman Work Phone: [facility] 09-09-2023 10:43-0400 Body height 152.[address] Howard Zimmerman Work Phone: [facility] 09-09-2023 10:43-0400 Body weight 39.[address] Howard Zimmerman Work Phone: 3(303)432-366976 [place] [address] 09-08-2023 14:45-0400 Body mass index (BMI) [Ratio] 17.2 kg/m2 Dr. Howard Zimmerman Work Phone: [facility] 09-08-2023 13:40-0400 Body temperature 98.4 [degF] Dr. Howard Zimmerman Work Phone: [facility] 09-08-2023 13:40-0400 Diastolic blood pressure 98 mm[Hg] Dr. Howard Zimmerman Work Phone: [facility] 09-08-2023 13:40-0400 Heart rate 83 /min Dr. Howard Zimmerman Work Phone: [facility] 09-08-2023 13:40-0400 Respiratory rate 12 /min Dr. Howard Zimmerman Work Phone: [facility] 09-08-2023 13:40-0400 SaO2% (BldA) [Mass fraction] 95 % Dr. Howard Zimmerman Work Phone: [facility] 09-08-2023 13:40-0400 Systolic blood pressure 146 mm[Hg] Dr. Howard Zimmerman Work Phone: [facility] 09-08-2023 09:36-0400 Body height 157.[address] Howard Zimmerman Work Phone: [facility] 09-08-2023 09:36-0400 Body mass index (BMI) [Ratio] 17.2 kg/m2 Dr. Howard Zimmerman Work Phone: [facility] 09-08-2023 09:36-0400 Body weight 42.[address] Howard Zimmerman Work Phone: [facility] 08-17-2023 10:49-0500 Body temperature 97.3 [degF] Bart Brooks DO Work Phone: [facility] 08-17-2023 10:49-0500 Body weight 43.09 kg Bart Brooks DO Work Phone: [facility] 08-17-2023 10:49-0500 Diastolic blood pressure 64 mm[Hg] Bart Brooks DO Work Phone: [facility] 08-17-2023 10:49-0500 Heart rate 92 /min Bart Brooks DO Work Phone: [facility] 08-17-2023 10:49-0500 SaO2% (BldA) [Mass fraction] 96 % Bart Brooks DO Work Phone: [facility] 08-17-2023 10:49-0500 Systolic blood pressure 102 mm[Hg] Bart Brooks DO Work Phone: [facility] 07-28-2023 16:08-0500 Diastolic blood pressure 89 mm[Hg] Dr. Howard Zimmerman Work Phone: [facility] 07-28-2023 16:08-0500 Heart rate 83 /min Dr. Howard Zimmerman Work Phone: [facility] 07-28-2023 16:08-0500 Respiratory rate 16 /min Dr. Howard Zimmerman Work Phone: [facility] 07-28-2023 16:08-0500 SaO2% (BldA) [Mass fraction] 96 % Dr. Howard Zimmerman Work Phone: [facility] 07-28-2023 16:08-0500 Systolic blood pressure 160 mm[Hg] Dr. Howard Zimmerman Work Phone: [facility] 07-28-2023 09:14-0500 Body height 157.[address] Howard Zimmerman Work Phone: [facility] 07-28-2023 09:14-0500 Body mass index (BMI) [Ratio] 18.1 kg/m2 Dr. Howard Zimmerman Work Phone: [facility] 07-28-2023 09:14-0500 Body temperature 97 [degF] Dr. Howard Zimmerman Work Phone: 2(055)448-051276 [place] [address] 07-28-2023 09:14-0500 Body weight [address] Howard Zimmerman Work Phone: 3(460)199-289342 [address] 06-29-2023 15:18-0500 Body height 157.[address] Howard Zimmerman Work Phone: 9(029)908-680576 [place] [address] 06-29-2023 15:18-0500 Body weight 41.[address] Howard Zimmerman Work Phone: 8(060)175-837576 [place] [address] 06-29-2023 08:51-0500 SaO2% (BldA) [Mass fraction] 96 % Dr. Howard Zimmerman Work Phone: 2(525)018-392376 [place] [address] 06-29-2023 08:44-0500 Body temperature 98 [degF] Dr. Howard Zimmerman Work Phone: 7(409)575-133276 [place] [address] 06-29-2023 08:44-0500 Diastolic blood pressure 84 mm[Hg] Dr. Howard Zimmerman Work Phone: 0(754)825-555076 [place] [address] 06-29-2023 08:44-0500 Heart rate 71 /min Dr. Howard Zimmerman Work Phone: [facility] 06-29-2023 08:44-0500 Respiratory rate 14 /min Dr. Howard Zimmerman Work Phone: 6(875)112-670376 [place] [address] 06-29-2023 08:44-0500 Systolic blood pressure 113 mm[Hg] Dr. Howard Zimmerman Work Phone: 5(647)572-265376 [place] [address] 06-29-2023 05:42-0500 Body mass index (BMI) [Ratio] 16.6 kg/m2 Dr. Howard Zimmerman Work Phone: [facility] 06-28-2023 18:30-0500 Diastolic blood pressure 72 mm[Hg] Dr. Howard Zimmerman Work Phone: [facility] 06-28-2023 18:30-0500 Heart rate 99 /min Dr. Howard Zimmerman Work Phone: [facility] 06-28-2023 18:30-0500 Respiratory rate 18 /min Dr. Howard Zimmerman Work Phone: [facility] 06-28-2023 18:30-0500 Systolic blood pressure 116 mm[Hg] Dr. Howard Zimmerman Work Phone: [facility] 06-28-2023 16:00-0500 SaO2% (BldA) [Mass fraction] 95 % Dr. Howard Zimmerman Work Phone: [facility] 06-28-2023 12:17-0500 Body height 157.[address] Howard Zimmerman Work Phone: [facility] 06-28-2023 12:17-0500 Body mass index (BMI) [Ratio] 17 kg/m2 Dr. Howard Zimmerman Work Phone: [facility] 06-28-2023 12:17-0500 Body temperature 97.2 [degF] Dr. Howard Zimmerman Work Phone: [facility] 06-28-2023 12:17-0500 Body weight 42.[address] Howard Zimmerman Work Phone: [facility] 04-04-2023 13:20-0400 Body height 152.4 cm Selvin Felder MD Work Phone: [facility] 04-04-2023 13:20-0400 Body weight 44 kg Selvin Felder MD Work Phone: [facility] 04-04-2023 13:20-0400 SaO2% (BldA) [Mass fraction] 98 % Selvin Felder MD Work Phone: [facility] 02-13-2023 11:24-0400 Body height 156 cm Bart Brooks DO Work Phone: [facility] 02-13-2023 11:24-0400 Body temperature 97.5 [degF] Bart Jimenezi DO Work Phone: [facility] 02-13-2023 11:24-0400 Body weight 43.55 kg Bart Jimenezi DO Work Phone: [facility] 02-13-2023 11:24-0400 Diastolic blood pressure 81 mm[Hg] Bart Jimenezi DO Work Phone: [facility] 02-13-2023 11:24-0400 Heart rate 89 /min Bart Jimenezi Work Phone: [facility] 02-13-2023 11:24-0400 SaO2% (BldA) [Mass fraction] 97 % Bart Brooks DO Work Phone: [facility] 02-13-2023 11:24-0400 Systolic blood pressure 111 mm[Hg] Bart Brooks DO Work Phone: [facility] 01-16-2023 12:07-0400 Body temperature 97.8 [degF] Dr. Howard Zimmerman Work Phone: [facility] 01-16-2023 12:07-0400 Diastolic blood pressure 69 mm[Hg] Dr. Howard Zimmerman Work Phone: [facility] 01-16-2023 12:07-0400 Heart rate 70 /min Dr. Howard Zimmerman Work Phone: [facility] 01-16-2023 12:07-0400 Respiratory rate 16 /min Dr. Howard Zimmerman Work Phone: [facility] 01-16-2023 12:07-0400 SaO2% (BldA) [Mass fraction] 98 % Dr. Howard Zimmerman Work Phone: [facility] 01-16-2023 12:07-0400 Systolic blood pressure 111 mm[Hg] Dr. Howard Zimmerman Work Phone: [facility] 01-15-2023 16:37-0400 Body height 152.[address] Howard Zimmerman Work Phone: [facility] 01-15-2023 16:37-0400 Body weight 42.[address] Howard Zimmerman Work Phone: [facility] 01-15-2023 13:23-0400 Body mass index (BMI) [Ratio] 18.3 kg/m2 Dr. Howard Zimmerman Work Phone: [facility] 01-15-2023 12:30-0400 Inhaled oxygen flow rate 1 L/min Dr. Howard Zimmerman Work Phone: [facility] 01-05-2023 16:09-0400 Body mass index (BMI) [Ratio] 18.3 kg/m2 Dr. Howard Zimmerman Work Phone: [facility] 01-05-2023 16:09-0400 Body weight 43.[address] Howard Zimmerman Work Phone: [facility] 01-05-2023 16:09-0400 Diastolic blood pressure 86 mm[Hg] Dr. Howard Zimmerman Work Phone: [facility] 01-05-2023 16:09-0400 Heart rate 71 /min Dr. Howard Zimmerman Work Phone: [facility] 01-05-2023 16:09-0400 Respiratory rate 16 /min Dr. Howard Zimmerman Work Phone: [facility] 01-05-2023 16:09-0400 Systolic blood pressure 158 mm[Hg] Dr. Howard Zimmerman Work Phone: [facility] 08-15-2022 11:13-0500 Body height 156.2 cm Bart Brooks DO Work Phone: [facility] 08-15-2022 11:13-0500 Body temperature 97 [degF] Bart Brooks DO Work Phone: [facility] 08-15-2022 11:13-0500 Body weight 45.59 kg Bart Masci DO Work Phone: [facility] 08-15-2022 11:13-0500 Diastolic blood pressure 76 mm[Hg] Bart Brooks DO Work Phone: [facility] 08-15-2022 11:13-0500 Heart rate 48 /min Bart Brooks DO Work Phone: [facility] 08-15-2022 11:13-0500 Systolic blood pressure 120 mm[Hg] Bart Brooks DO Work Phone: [facility] 07-19-2022 09:48-0500 Body mass index (BMI) [Ratio] 19.8 kg/m2 Dr. Howard Zimmerman Work Phone: [facility] 07-19-2022 09:48-0500 Body temperature 96.2 [degF] Dr. Howard Zimmerman Work Phone: [facility] 07-19-2022 09:48-0500 Respiratory rate 16 /min Dr. Howard Zimmerman Work Phone: [facility] 07-19-2022 00:37-0500 Body weight 47.[address] Howard Zimmerman Work Phone: [facility] 07-19-2022 00:37-0500 Diastolic blood pressure 37 mm[Hg] Dr. Howard Zimmerman Work Phone: [facility] 07-19-2022 00:37-0500 Heart rate 54 /min Dr. Howard Zimmerman Work Phone: [facility] 07-19-2022 00:37-0500 Systolic blood pressure 90 mm[Hg] Dr. Howard Zimmerman Work Phone: [facility] 07-05-2022 15:39-0500 Body height 156.8 cm Sridevi Solo MD Work Phone: [facility] 07-05-2022 15:39-0500 Body weight 46.27 kg Sridevi Solo MD Work Phone: [facility] 07-05-2022 15:39-0500 Diastolic blood pressure 68 mm[Hg] Sridevi Solo MD Work Phone: [facility] 07-05-2022 15:39-0500 Heart rate 73 /min Sridevi Solo MD Work Phone: [facility] 07-05-2022 15:39-0500 SaO2% (BldA) [Mass fraction] 95 % Sridevi Solo MD Work Phone: [facility] 07-05-2022 15:39-0500 Systolic blood pressure 138 mm[Hg] Sridevi Solo MD Work Phone: [facility] 07-05-2022 09:40-0500 Body mass index (BMI) [Ratio] 19.8 kg/m2 Dr. Howard Zimmerman Work Phone: [facility] 07-05-2022 09:40-0500 Body temperature 96.4 [degF] Dr. Howard Zimmerman Work Phone: [facility] 07-05-2022 09:40-0500 Diastolic blood pressure 37 mm[Hg] Dr. Howard Zimmerman Work Phone: [facility] 07-05-2022 09:40-0500 Heart rate 54 /min Dr. Howard Zimmerman Work Phone: [facility] 07-05-2022 09:40-0500 Systolic blood pressure 90 mm[Hg] Dr. Howard Zimmerman Work Phone: [facility] 06-23-2022 09:32-0500 Respiratory rate 16 /min Dr. Howard Zimmerman Work Phone: [facility] 06-18-2022 00:39-0500 Body weight 47.[address] Howard Zimmerman Work Phone: [facility] 06-14-2022 09:17-0500 Body mass index (BMI) [Ratio] 19.8 kg/m2 Dr. Howard Zimmerman Work Phone: [facility] 06-14-2022 09:17-0500 Body temperature 97.3 [degF] Dr. Howard Zimmerman Work Phone: [facility] 06-14-2022 09:17-0500 Diastolic blood pressure 66 mm[Hg] Dr. Howard Zimmerman Work Phone: [facility] 06-14-2022 09:17-0500 Heart rate 77 /min Dr. Howard Zimmerman Work Phone: [facility] 06-14-2022 09:17-0500 Systolic blood pressure 108 mm[Hg] Dr. Howard Zimmerman Work Phone: 3(006)133-908876 [place] [address] 06-07-2022 09:16-0500 Body height 154.[address] Howard Zimmerman Work Phone: 1(041)546-748376 [place] [address] 06-07-2022 09:16-0500 Body weight 47.[address] Howard Zimmerman Work Phone: 4(327)725-293476 [place] [address] 06-07-2022 09:16-0500 Respiratory rate 16 /min Dr. Howard Zimmerman Work Phone: [facility] 05-12-2022 10:42-0500 Body height 154.[address] Howard Zimmerman Work Phone: 9(555)878-225576 [place] [address] Work Phone: 05-12-2022 10:42-0500 Body mass index (BMI) [Ratio] 18.8 kg/m2 Dr. Howard Zimmerman Work Phone: [facility] 05-12-2022 10:42-0500 Body temperature 97.4 [degF] Dr. Howard Zimmerman Work Phone: [facility] 05-12-2022 10:42-0500 Body weight 45.[address] Howard Zimmerman Work Phone: [facility] 05-12-2022 10:42-0500 Diastolic blood pressure 66 mm[Hg] Dr. Howard Zimmerman Work Phone: [facility] 05-12-2022 10:42-0500 Heart rate 81 /min Dr. Howard Zimmerman Work Phone: [facility] 05-12-2022 10:42-0500 Respiratory rate 16 /min Dr. Howard Zimmerman Work Phone: [facility] 05-12-2022 10:42-0500 SaO2% (BldA) [Mass fraction] 99 % Dr. Howard Zimmerman Work Phone: [facility] 05-12-2022 10:42-0500 Systolic blood pressure 104 mm[Hg] Dr. Howard Zimmerman Work Phone: 9(142)662-555776 [place] [address] 04-14-2022 12:25-0400 Body height 154.[address] Howard Zimmerman Work Phone: 6(269)664-394876 [place] [address] Work Phone: 04-14-2022 12:25-0400 Body mass index (BMI) [Ratio] 19 kg/m2 Dr. Howard Zimmerman Work Phone: 7(539)965-355642 [address] 04-14-2022 12:25-0400 Body temperature 96.3 [degF] Dr. Howard Zimmerman Work Phone: 9(070)044-039942 [address] 04-14-2022 12:25-0400 Body weight 45.[address] Howard Zimmerman Work Phone: 5(147)996-079130 [place] [address] 04-14-2022 12:25-0400 Diastolic blood pressure 103 mm[Hg] Dr. Howard Zimmerman Work Phone: 9(802)041-230442 [address] 04-14-2022 12:25-0400 Heart rate 94 /min Dr. Howard Zimmerman Work Phone: 0(412)636-580676 [place] [address] 04-14-2022 12:25-0400 Respiratory rate 18 /min Dr. Howard Zimmerman Work Phone: 7(513)511-911876 [place] [address] 04-14-2022 12:25-0400 SaO2% (BldA) [Mass fraction] 98 % Dr. Howard Zimmerman Work Phone: 0(561)002-122176 [place] [address] 04-14-2022 12:25-0400 Systolic blood pressure 149 mm[Hg] Dr. Howard Zimmerman Work Phone: 8(792)226-995576 [place] [address] 03-30-2022 10:30-0400 Body temperature 98.2 [degF] Dr. Howard Zimmerman Work Phone: [facility] 03-30-2022 10:30-0400 Diastolic blood pressure 64 mm[Hg] Dr. Howard Zimmerman Work Phone: [facility] 03-30-2022 10:30-0400 Heart rate 83 /min Dr. Howard Zimmerman Work Phone: [facility] 03-30-2022 10:30-0400 Respiratory rate 14 /min Dr. Howard Zimmerman Work Phone: [facility] 03-30-2022 10:30-0400 SaO2% (BldA) [Mass fraction] 97 % Dr. Howard Zimmerman Work Phone: [facility] 03-30-2022 10:30-0400 Systolic blood pressure 112 mm[Hg] Dr. Howard Zimmerman Work Phone: [facility] 02-14-2022 11:51-0400 Body height 156.8 cm Bart Barbarai DO Work Phone: [facility] 02-14-2022 11:51-0400 Body temperature 97 [degF] Bart Masci DO Work Phone: [facility] 02-14-2022 11:51-0400 Body weight 46.27 kg Bart Masci DO Work Phone: [facility] 02-14-2022 11:51-0400 Diastolic blood pressure 90 mm[Hg] Bart Masci DO Work Phone: [facility] 02-14-2022 11:51-0400 Heart rate 67 /min Bart Barbarai DO Work Phone: [facility] 02-14-2022 11:51-0400 Systolic blood pressure 147 mm[Hg] Bart Jimenezi DO Work Phone: [facility] 11-23-2021 13:17-0400 Body height 157.[address] Howard Zimmerman Work Phone: [facility] Work Phone: 11-23-2021 13:17-0400 Body weight 49.[address] Howard Zimmerman Work Phone: [facility] Work Phone: 11-23-2021 13:17-0400 Diastolic blood pressure 68 mm[Hg] Dr. Howard Zimmerman Work Phone: [facility] Work Phone: 11-23-2021 13:17-0400 Heart rate 64 /min Dr. Howard Zimmerman Work Phone: [facility] Work Phone: 11-23-2021 13:17-0400 Respiratory rate 18 /min Dr. Howard Zimmerman Work Phone: [facility] Work Phone: 11-23-2021 13:17-0400 Systolic blood pressure 140 mm[Hg] Dr. Howard Zimmerman Work Phone: [facility] Work Phone: 11-23-2021 13:17-0400 Body height 157.[address] Howard Zimmerman Work Phone: [facility] Work Phone: 11-23-2021 13:17-0400 Body weight 49.[address] Howard Zimmerman Work Phone: [facility] Work Phone: 11-23-2021 13:17-0400 Diastolic blood pressure 68 mm[Hg] [facility]. Howard Zimmerman Work Phone: [facility] [facility] Work Phone: 11-23-2021 13:17-0400 Heart rate 64 /min Dr. Howard Zimmerman Work Phone: [facility] Work Phone: 11-23-2021 13:17-0400 Respiratory rate 18 /min Dr. Howard Zimmerman Work Phone: [facility] Work Phone: 11-23-2021 13:17-0400 Systolic blood pressure 140 mm[Hg] Dr. Howard Zimmerman Work Phone: [facility] Work Phone: 09-19-2021 14:33-0400 Body height 158 cm Sridevi Solo MD Work Phone: [facility] 09-19-2021 14:33-0400 Body weight 48.53 kg Sridevi Solo MD Work Phone: [facility] 09-19-2021 14:33-0400 Diastolic blood pressure 70 mm[Hg] Sridevi Solo MD Work Phone: [facility] 09-19-2021 14:33-0400 Heart rate 86 /min Sridevi Solo MD Work Phone: [facility] 09-19-2021 14:33-0400 SaO2% (BldA) [Mass fraction] 97 % Sridevi Solo MD Work Phone: [facility] 09-19-2021 14:33-0400 Systolic blood pressure 142 mm[Hg] Sridevi Solo MD Work Phone: [facility] 11-22-2020 13:01-0400 Body mass index (BMI) [Ratio] 19.3 kg/m2 Dr. Howard Zimmerman Work Phone: [facility] Work Phone: 11-22-2020 13:01-0400 Body mass index (BMI) [Ratio] 19.3 kg/m2 Dr. Howard Zimmerman Work Phone: [facility] Work Phone: 05-27-2019 09:30-0500 Body temperature 97.81 [degF] Brandon Faye MD Work Phone: [facility] Work Phone: 05-27-2019 09:30-0500 Diastolic blood pressure 78 mm[Hg] Brandon Faye MD Work Phone: [facility] Work Phone: 05-27-2019 09:30-0500 Heart rate 68 /min Brandon Faye MD Work Phone: [facility] Work Phone: 05-27-2019 09:30-0500 Respiratory rate 15 /min Brandon Faye MD Work Phone: [facility] Work Phone: 05-27-2019 09:30-0500 SaO2% (BldA) [Mass fraction] 94 % Brandon Faye MD Work Phone: [facility] Work Phone: 05-27-2019 09:30-0500 Systolic blood pressure 123 mm[Hg] Brandon Faye MD Work Phone: [facility] Work Phone: 05-27-2019 06:56-0500 Body height 157.5 cm Brandon Faye MD Work Phone: [facility] Work Phone: 05-27-2019 06:56-0500 Body mass index (BMI) [Ratio] 19.66 kg/m2 Brandon Faye MD Work Phone: [facility] Work Phone: 05-27-2019 06:56-0500 Body weight 48.76 kg Brandon Faye MD Work Phone: [facility] Work Phone: 2019 13:58-0500 Height 157.5 cm Brandon Faye [facility] , [place] 2019 13:56-0500 BMI (Body Mass Index) 19.74 kg/m2 Brandon Faye [facility], [place] 2019 13:56-0500 Body Temperature 98.6 [degF] Brandon [facility], [place] 2019 13:56-0500 Body weight 48.94 kg Brandon Faye [facility] , [place] 2019 13:56-0500 BP Diastolic 95 mm[Hg] [facility] [place] [facility] 13:56-0500 BP Systolic 170 mm[Hg] [facility] , [place] 2019 13:56-0500 Pulse (Heart Rate) 59 /min Brandon [facility], [place] 2019 13:56-0500 Pulse Oximetry 95 % Brandon [facility] , [place] 2019 13:56-0500 Respiratory Rate 16 /min Brandon [facility], [place] 01-08-2017 13:29-0400 BMI (Body Mass Index) [...] Start: 03-26-2025 End: 03-26-2025 ambulatory Odalis MERCER Facility:[facility] Start: 03-24-2025 End: 03-24-2025 ambulatory Howard Chi Erasmo [place] Start: 03-16-2025 End: 03-16-2025 ambulatory Candicewilkes barrelaila MERCER Facility:[facility] Start: 03-04-2025 Encounter for genera l adult medical examination without abnormal findings Odalis Saravia [facility] Start: 02-26-2025 ambulatory Odalis MERCER Facility:[facility] Start: 02-26-2025 Registered Referred Odalis SaeedJarod [facility] Start: 02-13-2025 End: 02-13-[address] Howard Zimmerman MD Work Phone: -Laboratory Start: 02-13-2025 End: 02-13-[address] Odalis Saravia MD -Laboratory Work Phone: Start: 02-13-2025 End: 02-13-2025 ambulatory Howard Brandtok Facility:[facility] Start: 02-05-2025 End: 02-05-[address] Howard Zimmerman MD Work Phone: -[facility] Start: 02-05-2025 End: 02-05-2025 Patient encounter procedure Pam JOHNSON -[facility] Work Phone: Start: 01-29-2025 Registered Referred Odalis SaeedJarod [facility] Start: 01-29-2025 End: 01-29-2025 ambulatory Odalis MERCER Facility:[facility] Start: 01-20-2025 End: 01-20-[address] Howard Zimmerman MD Work Phone: -[facility] Start: 01-20-2025 End: 01-20-[address] Odalis Saravia MD -[facility] Work Phone: Start: 01-09-2025 End: 01-09-[address] Howard Zimmerman MD Work Phone: -[facility] Start: 01-09-2025 End: 01-09-2025 Patient encounter procedure Pam JOHNSON -[facility] Work Phone: Start: 01-02-2025 ambulatory Odalis meek OLS Facility:[facility] Start: 01-02-2025 Registered Referred Odalis SaeedJarod [facility] Start: 12-31-2024 End: 12-31-[address] Howard Zimmerman MD Work Phone: -[facility] Start: 12-31-2024 End: 12-31-2024 Patient encounter procedure Pam Pack NP-C -[facility] Work Phone: Start: 12-25-2024 ambulatory Odalis meek OLS Facility:[facility] Start: 12-25-2024 Registered Referred Odalis SaeedJarod [facility] Start: 11-27-2024 ambulatory Odalis meek OLS Facility:[facility] Start: 11-27-2024 Registered Referred Odalis SaeedJarod [facility] Start: 11-26-2024 End: 11-26-[address] Howard Zimmerman MD Work Phone: -[facility] Start: 11-26-2024 End: 11-26-2024 Patient encounter procedure Pam JOHNSON -[facility] Work Phone: Start: 11-18-2024 End: 11-18-[address] Howard Zimmerman MD Work Phone: -[facility] Start: 11-18-2024 End: 11-18-[address] Odalis Saravia MD -[facility] Work Phone: Start: 11-17-2024 End: 11-17-[address] Howard Zimmerman MD Work Phone: -[facility] Start: 11-17-2024 End: 11-17-2024 Patient encounter procedure Pam JOHNSON -[facility] Work Phone: Start: 11-07-2024 End: 11-07-[address] Howard Zimmerman MD Work Phone: [facility] Work Phone: Start: 11-07-2024 End: 11-07-2024 Patient encounter procedure Pam JOHNSON -[facility] Work Phone: Start: 10-23-2024 ambulatory Odalis MERCER Facility:[facility] Start: 10-23-2024 [facility] Start: 10-22-2024 End: 10-22-[address] Howard Zimmerman MD Work Phone: [facility] Work Phone: Start: 10-22-2024 End: 10-22-2024 Departed Referred [facility] Start: 10-21-2024 End: 10-22-[address] Howard Zimmerman MD Work Phone: -[facility] Start: 10-21-2024 End: 10-21-2024 Patient encounter procedure Pam JOHNSON -[facility] Work Phone: Start: 10-20-2024 End: 10-20-2024 Office outpatient visit 25 minutes Selvin Felder MD Work Phone: Neurology Comment on above: Parkinson's disease 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) (Primary Dx); Neurogenic orthostatic hypotension (HCC) Start: 10-20-2024 End: 10-20-2024 ambulatory SELVIN FELDER Facility:[facility] Start: 09-18-2024 End: 09-18-2024 [facility] Start: 09-18-2024 [facility] Start: 09-17-2024 End: 09-18-[address] Howard Zimmerman MD Work Phone: [facility] Work Phone: Start: 09-17-2024 End: 09-17-2024 Patient encounter procedure Pam Pack NP-C -[facility] Work Phone: Start: 09-11-2024 End: 09-11-[address] Howard Zimmerman MD Work Phone: [facility] Work Phone: Start: 09-11-2024 End: 09-11-2024 [facility] Start: 09-11-2024 [facility] Start: 09-11-2024 End: 09-11-2024 ambulatory Odalis MERCER Facility:[facility] Start: 08-26-2024 End: 08-26-[facility] Start: 08-26-2024 End: 08-26-[address] [facility] Start: 08-14-2024 End: 08-14-[address] Howard Zimmerman MD Work Phone: [facility] Work Phone: Start: 08-14-2024 End: 08-14-2024 [facility] Start: 08-14-2024 End: 08-14-2024 ambulatory Odalis MERCER Facility:[facility] Start: 07-31-2024 End: 07-31-2024 ambulatory Pam Pack LITERACY CONSULTANT Facility:[facility] Start: 07-31-2024 End: 07-31-2024 Patient encounter procedure Pam Pack LITERACY CONSULTANT-C -[facility] Work Phone: Start: 07-17-2024 ambulatory Odalis meek OLS Facility:[facility] Start: 07-17-2024 [facility] Start: 07-01-2024 End: 07-01-2024 ambulatory Howard Zimmerman Facility:[facility] Start: 07-01-2024 End: 07-01-[address] Odalis Saravia MD -[facility] Work Phone: Start: 06-26-2024 End: 06-26-2024 [facility] Start: 06-26-2024 End: 06-26-2024 ambulatory Odalis Tocarlito OLS Facility:[facility] Start: 06-19-2024 ambulatory Odalis meek OLS Facility:[facility] Start: 06-19-2024 [facility] Start: 06-17-2024 End: 06-17-2024 ambulatory Odalis Tocarlito Facility:[facility] Start: 06-17-2024 End: 06-17-[address] Odalis Saravia MD -[facility] Work Phone: Start: 06-10-2024 End: 06-10-2024 [facility] Start: 06-10-2024 End: 06-10-2024 ambulatory Candicejeniffer Saravia OLS Facility:[facility] Start: 05-29-2024 End: 05-29-2024 ambulatory Pam Ramone LITERACY CONSULTANT Facility:[facility] Start: 05-29-2024 End: 05-29-2024 Patient encounter procedure Pam Pack LITERACY CONSULTANT- -[facility] Work Phone: Start: 05-22-2024 End: 05-22-2024 [facility] Start: 05-22-2024 End: 05-22-2024 ambulatory Efmarcy Tocarlito OLS Facility:[facility] Start: 05-14-2024 End: 05-14-2024 ambulatory [facility] Erasmo Facility:[facility] Start: 05-14-2024 End: 05-14-2024 Emergency department patient visit Howard Chi Erasmo Facility:[facility] Start: 05-07-2024 End: 05-07-2024 ambulatory Howard [facility] Erasmo Facility:[facility] Start: 04-21-2024 End: 04-21-2024 Telephone [...] Registered Referred Dr. Howard almaraz Work Phone: [facility] Start: 10-17-2023 Dr. Howard Zimmerman Work Phone: [facility] Start: 10-05-2023 End: 10-05-[address] Howard Zimmerman Work Phone: [facility] Work Phone: Start: 10-05-2023 End: 10-05-[address] Howard Zimmerman Work Phone: [facility] Start: 10-05-2023 End: 10-05-2023 Dr. Howard Zimmerman Work Phone: [facility] Start: 09-19-2023 End: 09-19-[address] Howard Zimmerman Work Phone: [facility] Work Phone: Start: 09-19-2023 End: 09-19-2023 Dr. Howard Zimmerman Work Phone: [facility] Work Phone: Start: 09-14-2023 End: 10-04-2023 Evaluation and management of inpatient Dr[facility] Howard Zimm[facility] Start: 09-14-2023 End: 10-04-2023 Dr. [facility] Zimm[facility] Start: 09-14-2023 Non-patient / Non-visit Dr. Keith Zimmerman Work Phone: [facility] Work Phone: Start: 09-14-2023 Dr. Howard Zimmerman Work Phone: [facility] Work Phone: Start: 09-13-2023 Non-patient / Non-visit Dr. Keith Zimmerman Work Phone: [facility] Work Phone: Start: 09-13-2023 Dr. Howard Zimmerman Work Phone: [facility] Work Phone: Start: 09-12-2023 Non-patient / Non-visit Dr. Keith Zimmerman Work Phone: [facility] Work Phone: Start: 09-12-2023 Dr. Howard Zimmerman Work Phone: [facility] Work Phone: Start: 09-11-2023 Non-patient / Non-visit Dr. Keith Zimmerman Work Phone: [facility] Work Phone: Start: 09-11-2023 Dr. Howard Zimmerman Work Phone: [facility] Work Phone: Start: 09-10-2023 Non-patient / Non-visit Dr. Keith Zimmerman Work Phone: [facility] Work Phone: Start: 09-10-2023 Dr. Howard Zimmerman Work Phone: [facility] Work Phone: Start: 09-09-2023 Non-patient / Non-visit Dr. Keith Zimmerman Work Phone: [facility] Work Phone: Start: 09-09-2023 Dr. Howard Zimmerman Work Phone: [facility] Work Phone: Start: 09-08-2023 Non-patient / Non-visit Dr. Keith Zimmerman Work Phone: [facility] Work Phone: Start: 09-08-2023 Dr. Howard Zimmerman Work Phone: [facility] Work Phone: Start: 09-08-2023 End: 09-14-2023 Evaluation and management of inpatient Dr. Howard Zimmerman [facility] Work [facility]: Start: 09-08-2023 End: 09-14-[address] Howard Zimmerman Work Phone: [facility] Work Phone: Start: 09-08-2023 End: 09-14-2023 Dr. Howard Zimmerman Work Phone: [facility]-Medical Surgical 3 Work Phone: Start: 09-05-2023 End: 09-05-[address] Howard Zimmerman Work Phone: [facility] Work Phone: Start: 09-05-2023 End: 09-05-[address] Howard Zimmerman Work Phone: [facility]-Physical Therapy Work Phone: Start: 09-05-[address] Howard rodriguez Work Phone: [facility] Therapy Work Phone: Start: 09-05-2023 Dr. Howard Zimmerman Work Phone: [facility]-Physical Therapy Work Phone: Start: 08-22-[address] Howard rodriguez Work Phone: [facility]-Physical Therapy Work Phone: Start: 08-21-2023 End: 08-21-[address] Howard Zimmerman Work Phone: [facility] Work Phone: Start: 08-21-2023 End: 08-21-[address] [facility] Start: 08-21-2023 End: 08-21-2023 Dr. Howard Zimm[facility] Start: 08-20-2023 End: 08-20-[address] Howard Zimmerman Work Phone: [facility] Work Phone: Start: 08-20-2023 End: 08-20-[address] Howard Zimm[facility] Start: 08-20-2023 End: 08-20-2023 Dr. 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 Howard Zimmerman Work Phone: [facility] Work Phone: Start: 08-01-2023 End: 08-01-[address] Howard Zimmerman Work Phone: [facility]-Physical Therapy Work Phone: Start: 08-01-2023 End: 08-01-2023 Dr. Howard Zimm[facility] Start: 08-01-[address] Howard rodriguez [facility] Start: 07-30-2023 Refill Selvin ortiz MD Work Phone: [facility] Comment on above: Refill Request Start: 07-28-2023 End: 07-28-2023 Emergency department patient visit Dr. Howard Zimmerman Work Phone: [facility]-Emergency Department Work Phone: Start: 07-28-2023 End: 07-28-2023 Dr. Howard Zimmerman Work Phone: [facility]-Emergency Department Work Phone: Start: 07-25-[address] Howard rodriguez Work Phone: [facility]-Physical Therapy Work Phone: Start: 07-10-[address] Howard almaraz [facility] Work Phone: Start: 07-10-2023 Dr. Howard Zimmerman [facility] Work Phone: Start: 07-10-2023 Non-patient / Non-visit Dr. Keith Zimmerman Work Phone: [facility] Work Phone: Start: 07-10-2023 Dr. Howard Zimmerman Work Phone: [facility] Work Phone: Start: 06-29-2023 Non-patient / Non-visit Dr. Keith Zimmerman Work Phone: [facility] Work Phone: Start: 06-29-2023 Dr. Howard Zimmerman Work Phone: [facility] Work Phone: Start: 06-29-2023 Non-patient / Non-visit Dr. Keith Zimmerman Work Phone: [facility] Start: 06-29-2023 Dr. Howard Zimmerman Work Phone: [facility] Start: 06-28-2023 End: 06-29-2023 Evaluation and management of inpatient Dr. Howard Zimmerman [facility] Start: 06-28-2023 End: 06-29-[address] Howard Zimmerman Work Phone: [facility] Work Phone: Start: 06-28-2023 Non-patient / Non-visit Dr. Keith Zimmerman Work Phone: [facility] Work Phone: Start: 06-28-2023 End: 06-29-2023 Dr. Howard Zimmerman [facility] Start: 06-27-[address] Howard rodriguez Work Phone: [facility]-Physical Therapy Work Phone: Start: 05-30-2023 Registered Recurring [facility] Work Phone: Start: 05-28-2023 End: 05-28-2023 ambulatory [facility] Work Phone: Start: 05-28-2023 End: 05-28-2023 [facility] Start: 05-18-2023 Telephone encounter Selvin laird MD Work Phone: [facility] Comment on above: Patient Question Start: 05-15-2023 End: 05-15-2023 ambulatory [facility] Work Phone: Start: 05-15-2023 End: 05-15-[address] Howard Zimmerman Work Phone: [facility]-Pulmonary Services/Neurology Work Phone: Start: 05-14-2023 End: 05-14-[address] Howard Zimmerman Work Phone: [facility] Work Phone: Start: 05-14-2023 End: 05-14-[address] Howard Zimmerman Work Phone: [facility], [facility] Office 3rd Flr Start: 05-09-[address] Howard rodriguez Work Phone: [facility]-Physical Therapy Work Phone: Start: 05-08-2023 End: 05-08-[address] Howard Zimmerman Work Phone: [facility] Work Phone: Start: 05-08-2023 End: 05-08-[address] Howard Zimm[facility] Start: 05-04-[address] Howard rodriguez Work Phone: [facility]-Physical Therapy Work Phone: Start: 05-03-2023 End: 05-03-[address] Howard Zimmerman Work Phone: [facility] Work Phone: Start: 05-03-2023 End: 05-03-[address] Howard Zimmerman Work Phone: [facility]-Radiology, [facility] Work Phone: Start: 04-25-[address] Howard rodriguez Work Phone: [facility]-Physical Therapy Work Phone: Start: 04-23-2023 End: 04-23-[address] Howard Zimmerman Work Phone: [facility] Work Phone: Start: 04-23-2023 End: 04-23-[address] Howard Zimmerman Work Phone: [facility]-Cat Scan, [facility] Work Phone: Start: 04-04-2023 End: 04-04-2023 Office outpatient visit 25 minutes Selvin Felder MD Work Phone: Neurology Comment on above: Parkinson's disease without dyskinesia or fluctuating manifestations (Primary Dx) Start: 04-02-2023 End: 04-02-[address] Howard Zimmerman Work Phone: [facility] Work Phone: Start: 04-02-2023 End: 04-02-[address] Howard Zimmerman Work Phone: [facility]-Laboratory, Phy Office 3rd Flr Start: 03-28-[address] Howard rodriguez Work Phone: [facility]-Occupational Therapy Work Phone: Start: 03-01-2023 End: 03-01-[address] Howard Zimmerman Work Phone: [facility] Work Phone: Start: 03-01-2023 End: 03-01-[address] Howard Zimmerman Work Phone: [facility]-Cat Scan, [facility] Work Phone: Start: 02-21-2023 End: 02-21-[address] Howard Zimmerman Work Phone: [facility] Work Phone: Start: 02-21-2023 End: 02-21-[address] Howard Zimmerman Work Phone: [facility]-Laboratory, Phy Office 3rd Flr Start: 02-21-[address] 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 Keith Zimmerman Work Phone: [facility] Work Phone: Start: 01-15-2023 Non-patient / Non-visit Dr. Keith Zimmerman Work Phone: [facility] Work Phone: Start: 01-15-2023 Non-patient / Non-visit Dr. Keith Zimmerman Work Phone: [facility] Start: 01-15-2023 End: 01-16-2023 Evaluation and management of inpatient Dr. Howard Zimmerman Work Phone: [facility]-Progressive Care Unit Work Phone: Start: 01-15-2023 End: 01-16-[address] Howard Zimmerman Work Phone: [facility] Work Phone: Start: 01-05-2023 End: 01-05-[address] Howard Zimmerman Work Phone: [facility] Work Phone: Start: 12-08-2022 End: 12-08-2022 ambulatory [facility] Work Phone: Start: 12-08-2022 End: 12-08-2022 Patient encounter procedure [facility]-Pulmonary Services/Neurology Start: 11-29-2022 End: 11-29-2022 ambulatory [facility] Work Phone: Start: 11-29-2022 End: 11-29-2022 Patient encounter procedure [facility]-Pulmonary Services/Neurology Start: 11-20-2022 Telephone encounter Selvin laird MD Work Phone: [facility] Comment on above: Patient Request Start: 10-20-2022 End: 10-20-2022 ambulatory [facility] Work Phone: Start: 10-20-2022 End: 10-20-2022 Patient encounter procedure [facility]-Radiology, [facility] Start: 09-19-2022 End: 09-19-[address] Howard Zimmerman Work Phone: [facility] Work Phone: Start: 09-19-2022 End: 09-19-[address] Howard Zimmerman Work Phone: [facility]-Physical Therapy Start: 08-30-2022 End: 08-30-[address] Howard Zimmerman Work Phone: [facility] Work Phone: Start: 08-30-2022 End: 08-30-[address] Howard Zimmerman Work Phone: [facility]-Laboratory Start: 08-29-2022 End: 08-29-[address] Howard Zimmerman Work Phone: [facility] [facility] Start: 08-29-2022 End: 08-29-[address] Howard Zimmerman Work Phone: [facility]-Laboratory, Phy Office 3rd Flr Start: 08-29-[address] 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 Keith Zimmerman Work Phone: [facility] Start: 07-19-2022 End: 07-20-[address] Howard Zimmerman Work Phone: [facility] Work Phone: Start: 07-19-2022 End: 07-20-[address] 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 Keith Zimmerman Work Phone: [facility] Start: 07-05-2022 End: 07-18-[address] Howard Zimmerman Work Phone: [facility] Work Phone: Start: 07-05-2022 End: 07-18-[address] [facility] Start: 06-30-2022 End: 06-30-2022 Subsequent hospital visit by physician Screen Mammo [facility] Comment on above: Encounter for screen ing mammogram for malignant neoplasm of breast [Z12.31] Start: 06-28-2022 Non-patient / Non-visit Dr. Keith Zimmerman Work Phone: [facility] Start: 06-23-2022 Non-patient / Non-visit Dr. Keith Zimmerman Work Phone: [facility] Start: 06-14-2022 Non-patient / Non-visit Dr. Keith Zimmerman Work Phone: [facility] Start: 06-14-2022 End: 06-17-[address] Howard Zimmerman Work Phone: [facility] Work Phone: Start: 06-14-2022 End: 06-17-[address] [facility] Start: 06-07-2022 Non-patient / Non-visit Dr[facility] Keith [facility] Start: 06-01-2022 End: 06-01-[address] Howard Zimmerman Work Phone: [facility] Work Phone: Start: 06-01-2022 End: 06-01-[address] Howard Zimmerman Work Phone: [facility]-Laboratory, Specimen Start: 05-25-2022 End: 05-25-[address] Howard Zimmerman Work Phone: [facility] Work Phone: Start: 05-25-2022 End: 05-25-[address] [facility] Start: 05-12-2022 End: 05-12-2022 Emergency department patient visit Dr. Howard Zimmerman Work Phone: [facility]-Emergency Department Start: 04-19-2022 End: 04-19-[address] Howard Zimmerman Work Phone: [facility], Phy Office 3rd Flr Start: 04-14-2022 End: 04-14-2022 Emergency department patient visit Dr. Howard Zimmerman Work Phone: [facility]-Emergency Department Start: 04-10-2022 End: 04-10-[address] Howard Zimmerman Work Phone: [facility] Work Phone: Start: 04-10-2022 End: 04-10-[address] Howard Zimmerman Work Phone: [facility], [facility] Start: 04-07-2022 End: 04-07-[address] Howard Zimmerman Work Phone: [facility] Work Phone: Start: 04-07-2022 End: 04-07-[address] Howard Zimmerman Work Phone: [facility]-Pulmonary Services/Neurology Start: 04-06-2022 End: 04-06-[address] Howard Zimmerman Work Phone: [facility] Work Phone: Start: 04-06-2022 End: 04-06-[address] Howard Zimmerman Work Phone: [facility]-Radiology, [facility] Start: 04-04-2022 Telephone encounter Irasema Armenta MD Work Phone: OB/Gynecology Comment on above: Orders Start: 03-30-2022 End: 03-30-[address] Howard Zimmerman Work Phone: [facility] Start: 03-08-2022 Telephone encounter Bart cassidy DO Work Phone: Hematology/Oncology Comment on above: Results (CT A/P) Start: 03-07-2022 End: 03-07-[address] oHward Zimmerman Work Phone: [facility] Work Phone: Start: 03-07-2022 End: 03-07-[address] Howard Zimmerman Work Phone: [facility]-Pulmonary Services/Neurology Start: 03-06-2022 End: 03-06-[address] Howard Zimmerman Work Phone: [facility] Work Phone: Start: 03-06-2022 End: 03-06-[address] Howard Zimmerman Work Phone: [facility]-Laboratory, Phy Office 3rd Flr Start: [...] encounter procedure Dr. Howard Zimmerman Work Phone: [facility] Start: 12-05-2021 Telephone encounter Bart cassidy DO Work Phone: Hematology/Oncology Comment on above: Patient Update Start: 11-23-2021 End: 11-23-[address] Howard Zimmerman Work Phone: [facility] Start: 11-21-2021 End: 11-21-[address] 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 Hwoard Zimmerman MD Work Phone: Comment on above: [...] Ecg routine ecg w/least 12 lds w/i&r [place] Alise Vigil MD Start: 01-08-2017 End: 01-08-2017 Follow Up Appt 1 year Bart Marquez Start: 01-08-2017 End: 01-08-2017 PFM Bart Olivarez MD Start: 06-26-2016 End: 06-28-2016 *BMP Gonzalez A Bernard DIAMOND SETTER APPRENTICE-C Start: 06-26-2016 End: 06-28-2016 *CBC with Differential Gonzalez A Bernard DIAMOND SETTER APPRENTICE- C Start: 06-26-2016 End: 12-26-2016 Follow Up Appt Other Gonzalez A Bernard DIAMOND SETTER APPRENTICE-C Start: 06-26-2016 End: 06-28-2016 Magnesium [Mass/volume] in Serum or Plasma Gonzalez A Bernard DIAMOND SETTER APPRENTICE-C Start: 04-13-2016 End: 12-26-2016 *Hepatic Function Panel [...] DTaP,Tdap,Td Vaccine (3 - Td or Tdap) [facility] Start: 08-15-2025 DIABETES SCREEN DIABETES SCREEN [facility] Start: 08-15-2025 Diabetes Screening Diabetes Screening [facility] Start: 05-04-2025 End: 05-04-2025 Patient encounter procedure 05/04/2025 11:00 AM EST Office Visit Neurology [address] [id number] Selvin Felder MD [address] [id number] 6 month follow up Neurology Comment on above: 6 month follow up Start: 02-16-2025 Influenza vaccination Influenza Vaccine (Season Ended) [facility] Start: 02-14-2025 DIABETES SCREEN DIABETES SCREEN [facility] Start: 10-20-2024 End: 10-20-2024 Patient encounter procedure 10/20/2024 11:00 AM EDT Office Visit Neurology [address] [address] Selvin Felder MD [address] [address] 6 month follow up Neurology Comment on above: 6 month follow up Start: 07-04-2024 End: 07-04-2024 Patient encounter procedure 07/04/2024 1:40 PM EST Office Visit OB/Gynecology [address] [place] [address] Irasema Armenta MD [address] [place] [address] annual OB/Gynecology Comment on above: annual Start: 06-18-2024 Advance Directive Discussion Advance Directive Discussion [facility] Start: 04-21-2024 End: 04-21-2024 Patient encounter procedure 04/21/2024 11:00 AM EST Office Visit Neurology [address] [phone] Selvin Felder MD [address] [id number] 6 month follow up Neurology Comment on above: 6 month follow up Start: 02-22-2024 End: 02-22-[address] [facility] Laboratory Comment on above: CBC/LDH 6 MO OV/ LABS CBC/ L DH * Start: 02-17-2024 Covid-19 Vaccine ( season) Covid-19 Vaccine ( season) [facility] Start: 02-17-2024 Influenza vaccination Influenza Vaccine (#1) [facility] Start: 10-19-2023 Blood chemistry [facility] Start: 10-12-2023 Blood chemistry [facility] Start: 10-04-2023 Patient discharge [facility] Start: 10-03-2023 Development of care plan [facility] Start: 09-29-2023 [facility] Start: 09-27-2023 [facility] Start: 09-20-2023 Speech therapy management [facility] Start: 09-20-2023 Speech therapy assessment [facility] Start: 09-19-2023 [facility] Start: 09-15-2023 End: 09-15-2023 [facility] Start: 09-15-2023 Development of care plan [facility] Start: 09-15-2023 Developing a treatment plan [facility] Start: 09-14-2023 Admission procedure [facility] Start: 09-14-2023 Measuring intake and output [facility] Start: 09-14-2023 Patient referral to dietitian [facility] Start: 09-14-2023 Referral to occupational therapist [facility] Start: 09-14-2023 Referral to service [facility] Start: 09-14-2023 Vital signs measurements [facility] Start: 09-14-2023 [facility] Start: 09-14-2023 Patient discharge [facility] Start: 09-14-2023 [facility] Start: 09-11-2023 Care planning and problem solving actions [facility] Start: 09-11-2023 Telemedicine consultation with patient [facility] Start: 09-11-2023 [facility] Start: 09-08-2023 Following clinical pathway protocol [facility] Start: 09-08-2023 Assessment of risk of venous thromboembolism [facility] Start: 09-08-2023 Insertion of catheter into peripheral vein [facility] Start: 09-08-2023 Providing care according to standard [facility] Start: 09-08-2023 Provision of activity privileges [facility] Start: 09-08-2023 Referral to occupational therapist [facility] Start: 09-08-2023 Referral to service [facility] Start: 09-08-2023 [facility] Start: 09-08-2023 Urinalysis complete panel - Urine [facility] Start: 09-08-2023 Verification routine [facility] Start: 09-08-2023 Admission procedure [facility] Start: 09-08-2023 Hospital admission, emergency, from emergency room, medical nature [facility] Start: 09-08-2023 [facility] Start: 09-08-2023 Patient referral to dietitian [facility] Start: 08-17-2023 End: 11-16-2023 CBC W Auto Differential panel - Blood CBC + DIFF Lab STAT 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) Expected: 08/17/2023, Expires: 11/16/2023 [facility] Work Phone: Comment on above: Expected: 08/17/2023, Expires: Start: 08-17-2023 End: 11-16-2023 Lactate dehydrogenase [Enzymatic activity/volume] in Serum or Plasma LD LACTATE DEHYDRO Lab Routine 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) Expected: 08/17/2023, Expires: 11/16/2023 [facility] Work Phone: Comment on above: Expected: 08/17/2023, Expires: Start: 07-28-2023 [facility] Start: 07-28-2023 Repair intermediate n/h/f/xtrnl gent 2.6-7.5 cm [facility] Start: 06-29-2023 Referral to service [facility] Start: 06-29-2023 Patient discharge [facility] Start: 06-28-2023 Following clinical pathway protocol [facility] Start: 06-28-2023 Aspiration precautions [facility] Start: 06-28-2023 Assessment of risk of venous thromboembolism [facility] Start: 06-28-2023 Cardiac monitoring [facility] Start: 06-28-2023 Catheterization of vein [facility] Start: 06-28-2023 Continuous pulse oximetry [facility] Start: 06-28-2023 Elevation of head of bed [facility] Start: 06-28-2023 Exercises [facility] Start: 06-28-2023 Fall prevention [facility] Start: 06-28-2023 Implementation of planned interventions [facility] Start: 06-28-2023 Inhalation therapy procedure [facility] Start: 06-28-2023 Insertion of catheter into peripheral vein [facility] Start: 06-28-2023 Introduction of urinary catheter [facility] Start: 06-28-2023 Measuring intake and output [facility] Start: 06-28-2023 Notification of physician [facility] Start: 06-28-2023 Oxygen therapy [facility] Start: 06-28-2023 Patient referral to dietitian [facility] Start: 06-28-2023 Providing care according to standard [facility] Start: 06-28-2023 Provision of activity privileges [facility] Start: 06-28-2023 Referral to occupational therapist [facility] Start: 06-28-2023 Referral to service [facility] Start: 06-28-2023 Speech therapy assessment [facility] Start: 06-28-2023 Telemedicine consultation with patient [facility] Start: 06-28-2023 Tobacco use cessation education [facility] Start: 06-28-2023 [facility] Start: 06-28-2023 Verification routine [facility] Start: 06-28-2023 Admission procedure [facility] Start: 06-28-2023 Hospital admission, emergency, from emergency room, medical nature [facility] Start: 06-28-2023 Oxygen therapy [facility] Start: 06-28-2023 [facility] Start: 06-18-2023 Advance Directive Discussion Advance Directive Discussion [facility] Start: 06-18-2023 Depression Assessment Depression Assessment [facility] Start: 05-08-2023 Procedure [facility] Start: 02-20-2023 COVID-19 VACCINE (6 - Moderna series) COVID-19 VACCINE (6 - Moderna series) [facility] Start: 02-16-2023 Covid-19 Vaccine ( season) Covid-19 Vaccine ( season) [facility] Start: 02-16-2023 Influenza vaccination [facility] Start: 01-16-2023 Patient discharge [facility] Start: 01-15-2023 Following clinical pathway protocol [facility] Start: 01-15-2023 Ambulation without limitation [facility] Start: 01-15-2023 Assessment of risk of venous thromboembolism [facility] Start: 01-15-2023 Catheterization of vein [facility] Start: 01-15-2023 Insertion of catheter into peripheral vein [facility] Start: 01-15-2023 Measuring intake and output [facility] Start: 01-15-2023 Providing care according to standard [facility] Start: 01-15-2023 Referral to occupational therapist [facility] Start: 01-15-2023 Referral to service [facility] Start: 01-15-2023 Speech therapy assessment [facility] Start: 01-15-2023 [facility] Start: 01-15-2023 Verification routine [facility] Start: 01-15-2023 Admission procedure [facility] Start: 01-15-2023 Patient referral to dietitian [facility] Start: 01-15-2023 [facility] Start: 11-29-2022 [facility] Start: 08-15-2022 End: 10-15-2022 CBC W Auto Differential panel - Blood CBC + DIFF Lab STAT 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) Expected: 08/15/2022, Expires: 10/15/2022 [facility] Work Phone: Comment on above: Expected: 08/15/2022, Expires: 3 Start: 08-15-2022 End: 10-15-2022 Comprehensive metabolic 2000 panel - Serum or Plasma COMP METABOLIC PANEL Lab STAT 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) Expected: 08/15/2022, Expires: 10/15/2022 [facility] Work Phone: Comment on above: Expected: 08/15/2022, Expires: 3 Start: 08-15-2022 End: 10-15-2022 Lactate dehydrogenase [Enzymatic activity/volume] in Serum or Plasma LD LACTATE DEHYDRO Lab Routine 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) Expected: 08/15/2022, Expires: 10/15/2022 [facility] Work Phone: Comment on above: Expected: 08/15/2022, Expires: 3 Start: 06-18-2022 ADVANCE DIRECTIVE DISCUSSION ADVANCE DIRECTIVE DISCUSSION [facility] Start: 06-18-2022 DEPRESSION ASSESSMENT DEPRESSION ASSESSMENT [facility] Start: 05-12-2022 Smpl repair scalp/neck/ax/genit/trun k 2.6-7.5cm RPR S/N/AX/GEN/TRNK2.6-7.5CM [facility] Start: 02-16-2022 Influenza vaccination INFLUENZA (#1) [facility] Start: 02-14-2022 End: 04-16-2022 CBC W Auto Differential panel - Blood CBC + DIFF Lab STAT 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) Expected: 02/14/2022, Expires: 04/16/2022 [facility] Work Phone: Comment on above: Expected: 02/14/2022, Expires: 2 Start: 02-14-2022 End: 04-16-2022 Comprehensive metabolic 2000 panel - Serum or Plasma COMP METABOLIC PANEL Lab Routine 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) Expected: 02/14/2022, Expires: 04/16/2022 [facility] Work Phone: Comment on above: Expected: 02/14/2022, Expires: 2 Start: 02-14-2022 End: 04-16-2022 Lactate dehydrogenase [Enzymatic activity/volume] in Serum or Plasma LD LACTATE DEHYDRO Lab Routine 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) Expected: 02/14/2022, Expires: 04/16/2022 [facility] Work Phone: Comment on above: Expected: 02/14/2022, Expires: 2 Start: 12-22-2021 Procedure [facility] Work Phone: Start: 11-09-2021 COVID-19 VACCINE (5 - Booster for Moderna series) COVID-19 VACCINE (5 - Booster for Moderna series) [facility] Start: 06-18-2021 ADVANCE DIRECTIVE DISCUSSION ADVANCE DIRECTIVE DISCUSSION [facility] Start: 06-18-2021 DEPRESSION ASSESSMENT DEPRESSION ASSESSMENT [facility] Start: 06-28-2019 DIABETES SCREEN DIABETES SCREEN [facility] Start: 06-05-2019 End: 06-05-2019 Office Visit 06/05/2019 Office Visit Orthopedic Surgery Brandon Faye MD [address] [place] [address] [place] [address] [phone] [facility] [place] Start: 05-27-2019 Hospital Encounter 05/27/2019 Hospital Encounter General Surgery Brandon Faye MD [address] [facility] [address] [place] [address] [phone] [facility] Start: 05-01-2019 Annual Wellness Visit (AWV) Annual Wellness Visit (AWV) [place], [place] Start: 02-16-2019 Influenza vaccination Flu vaccine (#1) [place] Start: 01-07-2018 End: 01-07-2018 Appointment [facility] Work Phone: Start: 05-07-2017 End: 05-07-2017 Appointment Appointment [facility] Work Phone: Start: 01-08-2017 End: 01-08-2017 *Hepatic Function Panel *Hepatic Function Panel [facility] Work Phone: Start: 01-08-2017 End: 01-08-2017 Follow Up Appt 1 year Follow Up Appt 1 year [facility] Work Phone: Start: 01-08-2017 End: 01-08-2017 Lipid panel [AGGREGATE] *Lipid Profile CC PCP [facility] Work Phone: Start: 01-08-2017 End: 01-08-2017 PFM PFM [facility] Work Phone: Start: 12-26-2016 End: 07-03-2016 *Hepatic Function Panel *Hepatic Function Panel [facility] Work Phone: Start: 12-26-2016 End: 07-03-2016 Lipid panel [AGGREGATE] *Lipid Profile CC PCP [facility] Work Phone: Start: 06-26-2016 End: 06-28-2016 *BMP *BMP [facility] Work Phone: Start: 06-26-2016 End: 06-28-2016 *CBC with Differential *CBC with Differential [facility] Work Phone: Start: 06-26-2016 End: 12-26-2016 Follow Up Appt Other Follow Up Appt Other [facility] Work Phone: Start: 06-26-2016 End: 06-28-2016 Magnesium *Magnesium [facility] Work Phone: Start: 04-13-2016 End: 12-26-2016 *Hepatic Function Panel *Hepatic Function Panel [facility] Work Phone: Start: 04-13-2016 End: 12-26-2016 Lipid panel [AGGREGATE] *Lipid Profile CC PCP [facility] Work Phone: Start: 01-03-2016 End: 01-03-2016 Echocardiography Echocardiogram (complete) [facility] Work Phone: Start: 01-03-2016 End: 01-03-2016 Follow Up Appt 6 months Follow Up Appt 6 months [facility] Work Phone: Start: 01-03-2016 End: 06-16-2016 Follow Up BP Check Follow Up BP Check [facility] Work Phone: Start: 01-03-2016 End: 10-13-2015 Lipid panel [AGGREGATE] *Lipid Profile CC PCP [facility] Work Phone: Start: 01-03-2016 End: 01-03-2016 MMM MMM [facility] Work Phone: Start: 06-28-2015 End: 07-05-2015 *Hepatic Function Panel *Hepatic Function Panel [facility] Work Phone: Start: 06-28-2015 End: 07-05-2015 Lipid panel [AGGREGATE] *Lipid Profile CC PCP [facility] Work Phone: Start: 06-25-2015 End: 06-25-2015 Follow Up Appt 6 months Follow Up Appt 6 months [facility] Work Phone: Start: 06-25-2015 [...] w/least 12 lds w/i&r EKG (In office) [facility] Work Phone: Start: 11-23-2014 End: 11-23-2014 Follow Up Appt 6 months Follow Up Appt 6 months [facility] Work Phone: Start: 11-23-2014 End: 11-23-2014 MMM MMM [facility] Work Phone: Start: 10-06-2014 End: 10-06-2014 *Hepatic Function Panel *Hepatic Function Panel [facility] Work Phone: Start: 10-06-2014 End: 10-06-2014 Lipid panel [AGGREGATE] *Lipid Profile CC PCP [facility] Work Phone: Start: 05-26-2014 End: 05-26-2014 Follow Up Appt Other Follow Up Appt Other [facility] Work Phone: Start: 05-26-2014 End: 05-26-2014 PFM PFM [facility] Work Phone: Start: 01-16-2014 End: 04-07-2014 *Hepatic Function Panel *Hepatic Function Panel [facility] Work Phone: Start: 01-16-2014 End: 04-07-2014 Lipid panel [AGGREGATE] *Lipid Profile CC PCP [facility] Work Phone: Start: 11-24-2013 End: 11-24-2013 Ecg routine ecg w/least 12 lds w/i&r EKG (In office) [facility] Work Phone: Start: 11-24-2013 End: 11-24-2013 Follow Up Appt 6 months Follow Up Appt 6 months [facility] Work Phone: Start: 11-24-2013 End: 11-24-2013 MMM MMM [facility] Work Phone: Start: 09-16-2013 End: 10-20-2013 *Hepatic Function Panel *Hepatic Function Panel [facility] Work Phone: Start: 09-16-2013 End: 10-20-2013 Lipid panel [AGGREGATE] *Lipid Profile CC PCP [facility] Work Phone: Start: 05-01-2013 End: 05-22-2013 Ecg routine ecg w/least 12 lds w/i&r EKG (In office) [facility] Work Phone: Start: 04-08-2013 End: 04-08-2013 24 hour holter monitor 24 hour holter monitor [facility] Work Phone: Start: 04-08-2013 End: 04-08-2013 Ecg routine ecg w/least 12 lds w/i&r EKG (In office) [facility] Group Work Phone: Start: 04-08-2013 End: [...] Up Appt Other Follow Up Appt Other [facility] Work Phone: Start: 10-11-2012 End: 10-11-2012 MMM MMM [facility] Work Phone: Start: 05-18-2012 End: 05-24-2012 *Hepatic Function Panel *Hepatic Function Panel [facility] Work Phone: Start: 05-18-2012 End: 05-24-2012 Lipid panel [AGGREGATE] *Lipid Profile [facility] Work Phone: Start: 12-07-2011 End: 12-19-2011 *Hepatic Function Panel *Hepatic Function Panel [facility] Work Phone: Start: 12-05-2011 End: 12-19-2011 Lipid panel [AGGREGATE] *Lipid Profile [facility] Work Phone: Start: 11-09-2011 End: 11-09-2011 Follow Up Appt 1 year Follow Up Appt 1 year [facility] Work Phone: Start: 09-28-2011 MENINGOCOCCAL CONJUGATE (1 - Risk start 2-23 months series) MENINGOCOCCAL CONJUGATE (1 - Risk start 2-23 months series) [facility] Start: 09-28-2011 Meningococcal Conjugate Vaccine (1 - Risk start 2-23 months series) Meningococcal Conjugate Vaccine (1 - Risk start 2-23 months series) [facility] Start: 2001 DEXA (modify frequency per FRAX score) DEXA (modify frequency per FRAX score) [place], [place] Start: 1986 Shingles Vaccine (1 of 2) Shingles Vaccine (1 of 2) [place] Start: 1955 Urine microalbumin profile DTAP,TDAP,TD (1 - Tdap) [facility] Start: 1954 Anxiety Screening Anxiety Screening [facility] Start: 1954 Depression Screening Depression Screening [facility] Start: 1947 DTaP/Tdap/Td vaccine (1 - Tdap) DTaP/Tdap/Td vaccine (1 - Tdap) [place], [place] Start: 1946 Meningococcal B Vaccine (1 of 5 - Increased Risk) Meningococcal B Vaccine (1 of 5 - Increased Risk) [facility] Start: 1946 Meningococcal B Vaccine: Consider Based On Risk (1 of 4 - Increased Risk) Meningococcal B Vaccine: Consider Based On Risk (1 of 4 - Increased Risk) [facility] Start: 1945 MENINGOCOCCAL B: Consider based on risk (1 of 4 - Increased Risk Bexsero 2-dose series) MENINGOCOCCAL B: Consider based on risk (1 of 4 - Increased Risk Bexsero 2-dose series) [facility] Start: 1945 MENINGOCOCCAL B: Consider based on risk (1 of 4 - Increased Risk) MENINGOCOCCAL B: Consider based on risk (1 of 4 - Increased Risk) [facility] Bilirubin measuremen t, urine [facility] Work Phone: End: 05-27-2019 Blood glucose - POCT Blood glucose - POCT Point of Care Testing STAT One Time for 1 Occurrences starting 05/27/2019 until 05/27/2019 [employer] Work Phone: Comment on above: One Time for 1 Occurrences starting 05/18 until 05/27/2019 Cardiac event recording [facility] End: 03-16-2023 Ct abdomen & pelvis w/o contrast material CT ABD/PEL WO IVCON Radiology Routine 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 1 Occurrences starting 02/14/2022 until 03/16/2023 [facility] Work Phone: Comment on above: 1 Occurrences starting 02/14/2022 until 03/16/2023 Hemoglobin [Presence ] in Urine [facility] Work Phone: Incentive spirometry Incentive s pirometry Respiratory Care Routine Q1H PRN until discontinued starting 05/27/2019 [employer] Work Phone: Comment on above: Q1H PRN until discontinued starting 05/18 Initiate Oxygen Ther apy Protocol Initiate Oxygen Therapy Protocol Respiratory Care Routine Daily until discontinued starting 05/27/2019 [facility] Work Phone: Comment on above: Daily until discontinued starting 2018 End: 05-04-2023 GLEN SCREENING GLEN SCREENING Radiology Routine Encounter for screening mammogram for malignant neoplasm of breast 1 Occurrences starting 04/04/2022 until 05/04/2023 [facility] Work Phone: Comment on above: 1 Occurrences starting 04/04/2022 until 05/04/2023 Measurement of keton es in urine using dipstick [facility] Work Phone: Microscopic urinalysis [facility] Work Phone: Patient Education [facility] Work Phone: Patient referral [facility] Work Phone: pH of Urine [facility] Work Phone: Phase I & II - meter ed glucose Phase I & II - metered glucose Point of Care Testing Routine As Needed until discontinued starting 05/27/2019 [employer] Work Phone: Comment on above: As Needed until discontinued starting Procedure [facility] Work Phone: PT PLAN OF CARE CERTIFICATION PT PLAN OF CARE CERTIFICATION Procedures Routine Parkinson's disease (HCC) Abnormality of gait Ordered: 07/18/2022 [facility] Work Phone: Comment on above: Ordered: 07/18/2022 End: 05-27-2019 Pulse Oximetry Spot Check Pulse Oximetry Spot Check Respiratory Care Routine One Time for 1 Occurrences starting 05/27/2019 until 05/27/2019 [facility] Work Phone: Comment on above: One Time for 1 Occurrences starting 05/18 until 05/27/2019 Specific gravity of Urine [facility] Work Phone: Urinalysis, blood, qualitative [facility] Work Phone: Urine dipstick for glucose [facility] Work Phone: Urine dipstick for leukocyte esterase [facility] Work Phone: Urine dipstick for nitrite [facility] Work Phone: Urine dipstick for protein [facility] Work Phone: Urine examination [facility] Work Phone: Urine microscopy: epithelial cells [facility] Work Phone: Urine Microscopy: wh ite cells [facility] Work Phone: Urobilinogen [Presen ce] in Urine [facility] Work Phone: [facility] Immunizations Immunization Date Immunization Notes Care Provider Fa [facility] 11-14-2023 Covid (Spikevax) Dr. Howard barron MD Work Phone: [facility] 02-22-2023 influenza (aIIV4) vaccine, age 65+ yr, quadrivalent, PF (FLUAD QUAD) Selvin Felder MD Work Phone: [facility] Work Phone: 02-22-2023 influenza, injectabl e, quadrivalent, preservative free Dr. Howard Zimmerman Work Phone: [facility] 02-22-2023 respiratory syncytia l virus (RSV) vaccine, adjuvanted (AREXVY) Selvin Felder MD Work Phone: [facility] Work Phone: 02-22-2023 influenza virus vacc ine, unspecified formulation Selvin Felder MD Work Phone: [facility] 01-15-2023 tetanus toxoid, redu carlton diphtheria toxoid, and acellular pertussis vaccine, adsorbed Dr. Howard Zimmerman Work Phone: [facility] 10-20-2022 Covid Moderna Bivale nt Booster Dr. Howard Zimmerman MD Work Phone: [facility] 05-12-2022 tetanus toxoid, redu carlton diphtheria toxoid, and acellular pertussis vaccine, adsorbed Dr. Howard Zimmerman Work Phone: [facility] 09-14-2021 Covid (Moderna) Dr. Howard Zimmerman MD Work Phone: [facility] 04-06-2021 COVID-19 vaccine, fu ll dose (MODERNA) Sridevi Solo MD Work Phone: [facility] Work Phone: 02-03-2021 influenza, injectabl e, quadrivalent, contains preservative Sridevi Solo MD Work Phone: [facility] Work Phone: 02-03-2021 influenza, injectabl e, quadrivalent, preservative free Dr. Howard Zimmerman MD Work Phone: [facility] 08-13-2020 COVID-19 vaccine, fu ll dose (MODERNA) Sridevi Solo MD Work Phone: [facility] Work Phone: 07-16-2020 COVID-19 vaccine, fu ll dose (MODERNA) Sridevi Solo MD Work Phone: [facility] Work Phone: 02-10-2020 influenza, injectabl e, quadrivalent, contains preservative Sridevi Solo MD Work Phone: [facility] Work Phone: 02-10-2020 influenza, injectabl e, quadrivalent, preservative free Dr. Howard Zimmerman MD Work Phone: [facility] 08-06-2019 zoster vaccine recombinant Sridevi Solo MD Work Phone: [facility] Work Phone: 04-08-2019 zoster vaccine recombinant Sridevi Solo MD Work Phone: [facility] Work Phone: 02-20-2019 pneumococcal conjuga te vaccine, 13 valent Sridevi Solo MD Work Phone: [facility] Work Phone: 02-20-2019 Seasonal trivalent influenza vaccine, adjuvanted, preservative free Selvin Felder MD Work Phone: [facility] Work Phone: 03-21-2018 influenza, high dose seasonal, preservative-free Selvin Felder MD Work Phone: [facility] Work Phone: 03-05-2013 influenza, injectabl e, quadrivalent, preservative free Dr. Howard Zimmerman MD Work Phone: [facility] 03-05-2013 influenza, seasonal, injectable Selvin Felder MD Work Phone: [facility] Work Phone: 04-05-2012 influenza virus vacc ine, whole virus Selvin Felder MD Work Phone: [facility] Work Phone: 04-05-2012 influenza, injectabl e, quadrivalent, preservative free Dr. Howard Zimmerman MD Work Phone: [facility] 03-18-2012 influenza virus vacc ine, unspecified formulation Sridevi Solo MD Work Phone: [facility] 08-16-2011 haemophilus influenz ae type b vaccine, HbOC conjugate Sridevi Solo MD Work Phone: [facility] Work Phone: 08-03-2011 Meningococcal, MCV4, unspecified conjugate formulation(groups A, C, Y and W-135) Sridevi Solo MD Work Phone: [facility] Work Phone: 08-03-2011 pneumococcal polysaccharide vaccine, 23 valent Sridevi Solo MD Work Phone: [facility] Work Phone: 04-11-2010 pneumococcal polysaccharide vaccine, 23 valent Bart Brooks DO Work Phone: [facility] Work Phone: 03-25-2010 influenza virus vacc ine, whole virus Selvin Felder MD Work Phone: [facility] Work Phone: 03-25-2010 influenza, injectabl e, quadrivalent, preservative free Dr. Howard Zimmerman MD Work Phone: [facility] 06-02-2009 novel influenza-H1N1 -09, preservative-free, injectable Sridevi Solo MD Work Phone: [facility] Work Phone: 04-16-2007 influenza virus vacc ine, whole virus Selvin Felder MD Work Phone: [facility] Work Phone: 04-16-2007 influenza, injectabl e, quadrivalent, preservative free Dr. Howard Zimmerman MD Work Phone: [facility] Payers Date Payer Category Payer Medicare [id number] 2024 Self-pay [id number] 2021 Medicare AETNA MEDICARE A ETNA MEDICARE PPO [id number] 2021-Present [phone] [facility] [id number] [place] [address] [facility] [id number] 2021 Medicare (Managed Care) AETNA ME DICARE [id number] 2019 Medicare AETNA MEDICARE A ETNA MEDICARE-ADVANTAGE PPO [id number] 2019-Present [address] [place] [address] Medicare [id number] 2009 Medicare [id number] 2009 Private Health Insurance [facility] [id number] Unknown [id number] 2.16.840.1.885874.3.579.2. 462 Unknown [id number] 2.16.840.1.615349.3.579.2. 462 Unknown [id number] 2.16.840.1.983093.3.579.2. 462 Unknown [id number] 2.16.840.1.304314.3.579.2. 462 Unknown [id number] 2.16.840.1.022253.3.579.2. 462 Unknown [id number] 2.16.840.1.748886.3.579.2. 462 Unknown [id number] 2.16.840.1.777933.3.579.2. 462 Unknown [id number] 2.16.840.1.392444.3.579.2. 462 Unknown [id number] 2.16.840.1.182455.3.579.2. 462 Unknown [id number] 2.16.840.1.376148.3.579.2. 462 Unknown [id number] 2.16.840.1.341915.3.579.2. 462 Unknown [id number] 2.16.840.1.996839.3.579.2. 462 Unknown [id number] 2.16.840.1.394956.3.579.2. 462 Unknown [id number] 2.16.840.1.752369.3.579.2. 462 Unknown [id number] 2.16.840.1.508607.3.579.2. 462 Unknown [id number] 2.16.840.1.058729.3.579.2. 462 Unknown [id number] 2.16.840.1.650894.3.579.2. 462 Unknown [id number] 2.16.840.1.630175.3.579.2. 462 Unknown [id number] 2.16.840.1.631954.3.579.2. 462 Unknown [id number] 2.16.840.1.653308.3.579.2. 462 Unknown [id number] 2.16840.1.039917.3.579.2. 462 Unknown [id number] 2.16.840.1.341120.3.579.2. 462 Unknown [id number] 2.16.840.1.376205.3.579.2. 462 Unknown [id number] 2.16.840.1.935773.3.579.2. 462 Unknown [id number] 2.16.840.1.487833.3.579.2. 462 Unknown [id number] 2.840.1.111266.3.579.2. 462 Unknown [id number] 2.16.840.1.156455.3.579.2. 462 Unknown [id number] 2.16.840.1.270131.3.579.2. 462 Unknown [id number] 2.16.840.1.459273.3.579.2. 462 Unknown [id number] 2.16.840.1.900421.3.579.2. 462 Unknown [id number] 2.16840.1.572787.3.579.2. 462 Unknown [id number] 2.16.840.1.856805.3.579.2. 462 Unknown [id number] 2.16.840.1.572352.3.579.2. 462 Unknown [id number] 2.16.840.1.251850.3.579.2. 462 Unknown [id number] 2.16.840.1.871614.3.579.2. 462 Unknown [id number] 2.16.840.1.942995.3.579.2. 462 Unknown [id number] 2.16.840.1.024971.3.579.2. 462 Social History Date Type Detail Facility Start: 2019 End: 05-14-2024 Tobacco smoking status NHIS Never smoker [facility] Start: 2019 End: 05-27-2019 [facility] History SDOH Alcohol Frequency 1 [place], [place] Start: 1935 Sex Assigned At Not on file [place] Start: 09-19-2021 End: 10-20-2024 Alcohol intake Current non-drinker of alcohol (finding) [facility] Start: 09-09-2021 End: 02-14-2022 Exposure to SARS-CoV-2 (event) Not sure [facility] Start: 11-23-2021 End: 01-15-2023 Tobacco smoking status TNIS Unknown if ever smoked [facility] Start: 11-08-2020 Homeless [facility] Start: 11-08-2020 Non-smoker [facility] Start: 1935 Sex Assigned At Female [facility] Start: 07-05-2022 Tobacco use and exposure Smokeless tobacco non-user [facility] Start: 02-13-2023 End: 10-20-2024 History of Social function [facility] Start: 02-13-2023 End: 10-20-2024 Tobacco use panel [facility] Adult Depression Screening Assessment 0 [facility] Start: 09-18-2024 End: 10-03-2024 Sex Female (finding) [facility] Medical Equipment Procedure Code Equipment Code Equipment Origin al Text Equipment Identifier Dates Primary uncemented hemiarthroplasty of hip Orthopaedic cement, non-antimicrobial ()[id number] FDA Start: 12-23-2023 Primary uncemented hemiarthroplasty of hip ([id number]) Metallic femoral head prosthesis ()[id number] FDA Start: 12-23-2023 Primary uncemented hemiarthroplasty of hip ([id number]) Orthopaedic cement spacer ()[id number] FDA Start: 12-23-2023 Primary uncemented hemiarthroplasty of hip ([id number]) Bipolar femoral head outer component, hemiarthroplasty ()[id number] FDA Start: 12-23-2023 Primary uncemented hemiarthroplasty of hip ([id number]) Coated hip femur prosthesis, modular ()[id number] FDA Start: 12-23-2023 Primary uncemented hemiarthroplasty of hip Orthopaedic cement, antimicrobial ()[id number] FDA Start: 12-23-2023 Goals Date Patient Goal Desired Activity /State Functional Status Date Assessment Result Facility 10-04-2023 Functional status Ambulates [facility] Work Phone: 09-14-2023 Functional status Ambulates [facility] Work Phone: 06-29-2023 Functional status Ambulates [facility] Work Phone: 01-16-2023 Functional status Ambulates [facility] Work Phone: 10-07-2021 Functional Status OBJECTIVE Posture: WNL Gait: amb with large step length and arm swing, no AD Transfers: able to perform sit to stand with no UE support Coordination: hand gestures, toe tapping, arm rolls - symmetyrical, no abnormalties AROM: WNL PROM: WNL MMT: grossly 4+/5 except hip adductors 4/5 and bilat hamstrings 4/5 Paper Box Cutter strength L: 45 lbs - pt is left hand dominant Paper Box Cutter strength R: 30 lb TUG- 8 seconds Gan out of 56 Activity-Specific Balance Confidence Scale (ABC): 87% [facility] 11-23-2014 Are you deaf, or do you have serious difficulty hearing Yes 11/23/2014 8:52 AM EDT Magaly Dodson Ma, MA Yes [facility] 11-23-2014 Are you blind, or do you have serious difficulty seeing, even when wearing glasses No 11/23/2014 8:52 AM EDT Magaly Dodson Ma, MA No [facility] 11-23-2014 Do you have serious difficulty walking or climbing stairs No 11/23/2014 8:52 AM EDT Magaly Dodson Ma, [place] No [facility] 11-23-2014 Do you have difficul ty dressing or bathing No 11/23/2014 8:52 AM EDT Magaly Dodson Ma, [place] No [facility] 11-23-2014 Because of a physica l, mental, or emotional condition, do you have difficulty doing errands alone such as visiting a physician's office or shopping No 11/23/2014 8:52 AM EDT Magaly Dodson Ma, MA No [facility] Mental Status Date Assessment Result Facility 10-04-2023 Cognitive function Voice/Name [facility] Work Phone: 09-26-2023 Cognitive function Appropriate;Cooperativ e [facility] Work Phone: 09-14-2023 Cognitive function Voice/Name [facility] Work Phone: 09-08-2023 Cognitive function Level Of Cons ciousness Drowsy [facility] Work Phone: 06-29-2023 Cognitive function Voice/Name [facility] Work Phone: 06-28-2023 Cognitive function Voice/Name [facility] Work Phone: 01-16-2023 Cognitive function Voice/Name [facility] Work Phone: 11-23-2014 Because of a physica l, mental, or emotional condition, do you have serious difficulty concentrating, remembering, or making decisions No 11/23/2014 8:52 AM EDT Magaly Dodson Ma, MA No [facility] Clinical Notes 05-27-2019 to 10-20-2024 Selvin Felder MD - 10/20/2024 11:36 AM EDTPatient InstructionsPatient InstructionsAppSelvin soares MD - 04/21/2024 11:22 AM ESTTelephone Encounter - Maria Eugenia iVrgen MA - 04/21/2024 11:02 AM EST Note Date & Type Note Facility 10-20-2024 Note HNO ID: [id number] Author: SELVIN FELDER MD Service: ? Author Type: Physician Type: Progress Notes Filed: 10/20/2024 11:40 Note Text: [facility] - FOLLOW UP EVALUATION Primary Movement Disorders Neurologist: Selvin Felder MD Primary Movement Disorders TONE: Not yet assigned Recording using ambient [employer]patch software for draft documentation of the visit was discussed with the patient/authorized client representative; all questions welcomed and answered. Patient/authorized client representative agreed to proceed Howard Zimmerman MD [address] [facility] [address] [facility] [address] Dear Howard Zimmerman MD: I had the [...] endorse any fluid restrictions advised by a waist cutter. She reports persistent fatigue, stating, "I just [...] and mental health (more content not included)... [facility] 10-20-2024 History of Presen t illness Narrative [facility] - FOLLOW UP EVALUATION Primary Movement Disorders Neurologist: Selvin Felder MD Primary Movement Disorders TONE: Not yet assigned Recording using ambient Motion Dispatch software for draft documentation of the visit was discussed with the patient/authorized client representative; all questions welcomed and answered. Patient/authorized client representative agreed to proceed Howard Zimmerman MD [address] [address] Dear Howard Zimmerman MD: I had the [...] endorse any fluid restrictions advised by a waist cutter. She reports persistent fatigue, stating, "I just [...] or around: 04/22/25 Level of service : 56450 ( 30-39 min). Time spent 34 min on the day of service, which included preparing to see the patient, [id number] patient care, completing clinical documentation, performing a medically appropriate examination, and counseling and educating the patient/family/caregiver. Thank you for allowing me to be part of the clinical care of this patient! I look forward to continued participation in the patient s care with you. Please do not hesitate to call with any questions. Sincerely, Selvin Felder MD documented in this encounter [facility] 10-20-2024 Instructions Selvin Felder MD - [...] or you can send a message through [employer]. You can also now schedule and select appointments through [employer]. Selvin Felder MD documented in this encounter [facility] 04-21-2024 Instructions Selvin Felder MD - [...] or you can send a message through [employer]. You can also now schedule and select appointments through [employer]. Selvin Felder MD documented in this encounter [facility] 04-21-2024 Note HNO ID: [id number] Author: SELVIN FELDER MD Service: ? Author Type: Physician Type: Progress Notes Filed: 04/21/2024 19:56 Note Text: [facility] - FOLLOW UP EVALUATION Howard Zimmerman MD [address] [place] [address] I had the pleasure of seeing Ms. 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 [facility] 04-21-2024 History of Presen t illness Narrative [facility] - FOLLOW UP EVALUATION Howard Zimmerman MD [address] [address] I had the pleasure of seeing Ms. 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 Time spent 34 min on the day of service, which included preparing to see the patient, [id number] patient care, completing clinical documentation, performing a [...] Selvin Felder MD documented in this encounter [facility] 04-21-2024 Telephone encounter Note Checked james patient not present at time of visit [facility] 04-21-2024 Miscellaneous Notes Checked james patient not present at time of visit documented in this encounter [facility] 10-18-2023 Instructions Selvin Felder MD - [...] please feel free to send me a [employer] message or contact the office - Continue PT, exercise - Movement Disorders Medication Schedule: Medications 8a 1p 6p Sinemet 25/100 2 2 2 Return at or around: 04/19/24 If there are any concerns before your next visit, please call or you can send a message through [employer]. You can also now schedule and select appointments through [employer]. Selvin Felder MD documented in this encounter [facility] 10-18-2023 History of Presen t illness Narrative [facility] - FOLLOW UP EVALUATION No referring provider defined for this encounter. Howard Zimmerman MD [address] [facility] [address] [facility] [address] I had the pleasure of seeing Ms. [...] please feel free to send me a [employer] message or contact the office - PT - Interval History: Still off balance. PT Helps. Has been fairly consistent with exercise. Since last hospitalized she was in the hospital and went to rehab. Just moved to [place]. Getting PT now at [place]. Biting tongue if asleep or awake, reading. [...] please feel free to send me a [employer] message or contact the office - It [...] or around: 04/19/24 Level of service : 71666 ( 30-39 min). Time spent 33 min on the day of service, which included preparing to see the patient, wmhl-yk-gcvk patient care, completing clinical documentation, performing a medically appropriate examination, and counseling and educating the patient/family/caregiver. Thank you for allowing me to be part of the clinical care of this patient! I look forward to continued participation in the patient s care with you. Please do not hesitate to call with any questions. Sincerely, Selvin Felder MD documented in this encounter [facility] 10-03-2023 Discharge summary Note Date/Time October 03, 2023 7:40am [facility] Medical Records Department [address] [place] [address] Discharge Summary 10/03/23 0737 MR#: [id number] Acct: [id number] Name: KAYLENE HAYNES LY Rep #:[id number] : 1935 88 From: Howard Zimmerman MD PCP: Dr. Howard Zimmerman MD Status:ADM I N Location: [place] [address] Providers Date of Admission: 09/14/23 Primary Care [...] she always tells me no. Discharge to [facility] 10[facility]2023[facility]ST. Physical Exam Const alert General [...] and Uncontrolled pain Additional Instructions: Discharge to [facility] 10/04/2023, [facility]ST. Please Follow Up With: [facility] Cardiology When: As scheduled. Meaningful Use Info Meaningful Use Diagnoses (Choose all that apply): None applicable Discharge Plan Admission Admit Date/Time: 09/14/23 15:33 Primary Reason for Your Visit: Debility. Attending Provider: Howard Zimmerman Chi Primary Care Provider: Howard Zimmerman Chi Instructions Additional Instructions / Restrictions: Discharge to [facility] 10/04/2023, [facility] PT[facility]ST. Discharge Orders/Prescriptions Prescriptions: New ascorbic [...] THAT PT USES EYE DROPS MADE AT [facility] THAT IS MADE WITH HER BLOOD. [...] on 10/03/23 at 1731 Addendum Discharge to [facility] 10/04/2023, Outpatient PT/OT/ST. 10/03/23 1731<Electronically signed by Howard Zimmerman MD> Cosigner Signature (if applicable): cc: Dr. Howard Zimmerman MD ~* Signed [facility] Work Phone: 1(493) 159-536604-01-2024 Progress note Author Howard Zimmerman [facility] September 17, 2023 5:09pm Note Date/Time September 17, 2023 11:4 5am [facility] Medical Records Department [address] [place] [address] Progress Note - Pharmacy 09/17/23 1144 MR#: [id number] Acct: [id number] Name: KAYLENE HAYNES Rep #:[id number] : 1935 88 From: Antonia Woodson PCP: Dr. Howard Zimmerman MD Status:ADM I N Location: [facility] TCU13-1 Documented by User: Antonia Christian 09/17/23 16:49 TCU RX Drug Regimen Review Subjective/Objective Subjective/Objective: Subjective: 88 YOF presents to [facility] ED 09/08/23 due to fall with [...] Comments to Recommendations by Pharmacy: Agree 09/17/23 1379 <Electronically signed by Antonia Christian> Antonia Christian Cosigner Signature (if applicable): 09/17/23 1709 <Electronically signed by Howard Zimmerman MD> CC: ~ Signed [facility] Work Phone: 1(280) 823-278003-29-2024 History and physical note Author Howard Erasmo [facility] September 14, 2023 6:10pm Note Date/Time September 14, 2023 6:0 4pm [facility] Medical Records Department [address] [place] [address] History & Physical Exam 09/14/23 1755 MR#: [id number] Acct: [id number] Name: KAYLENE HAYNES Rep #:[id number] : 1935 88 From: Howard Zimmerman MD PCP: Dr. Howard Zimmerman MD Status:ADM I N Location: TCU [place] [address] HPI - General General Date of Admission: 09/14/23 Date of Service: 09/14/23 Chief Complaint: Here for rehabilitation. HPI Narrative 09/08/2023 KAYLENE HAYNES, is a 88 Female who presents to [facility] ED with syncope. Found unconscious on commode, unresponsive. Found by son, not talking in AM for several months, thought progression of Parkinson Disease. Fell 2 days ago, hurt right hip. Labs okay, EKG okay. X-ray right hip negative, CT brain negative, CT cervical spine negative, Chest X-ray negative. 09/08/2023 Admit to [facility]. PT/OT for Debility. 09/09/2023 UA negative, [...] to discharge home alone or possibly to [facility] Medical History (Updated 09/14/23 @ 18:02 by [...] would be willing to move to [facility], she always tells me no. [...] applicable): CC: Dr. Howard Zimmerman MD~ Signed [facility] Work Phone: 1(603) 537-883503-29-2024 Discharge summary Author Maame Pinon [facility] September 14, 2023 11:51am Note Date/Time September 14, 2023 11: 51am [facility] Medical Records Department [address] [place] [address] Transfer to [facility] MR#: [id number] Acct: [id number] Name: KAYLENE HAYENS LY Rep #:[id number] : 1935 88 From: Maame Pinon DO PCP: Dr. Howard Zimmerman MD Status:ADM I NO Certification of patient admission REQUIRED AT TIME OF ADMISSION. I CERTIFY THAT POST-HOSPITAL ECF SERVICES ARE REQUIRED TO BE GIVEN ON AN IN-PATIENT BASIS BECAUSE OF THE ABOVE NAMED PATIENT'S NEED FOR PRISON CARE ON A CONTINUING BASIS FOR THE [...] Marly Ochoa DO; Roopa Tolbert MD ~ [facility] Work Phone: 1(495) 298-523303-29-2024 Discharge summary Author Maame Pinon [facility] September 14, 2023 1:41pm Note Date/Time September 14, 2023 11: 51am [facility] Medical Records Department [address] [place] [address] Discharge Summary 09/14/23 1151 MR#: [id number] Acct: [id number] Name: KAYLENE HAYNES LY Rep #:[id number] : 1935 88 From: Maame Pinon DO PCP: Dr. Howard Zimmerman MD Status:ADM I NO [facility] Providers Date of Admission: 09/08/23 Date of [...] who presented to the emergency department at [facility] on 09/08/2023 after a fall. [...] in before D/C Order can be placed): Jail Facility Charges/Coding Visit Charges Inpatient E&M: 61714 SNF Disch >30 Min 09/14/23 1341 <Electronically signed by Maame Pinon DO> Cosigner Signature (if applicable): CC: Dr. Maame Pinon DO; Dr. Howard Zimmerman MD~ Signed [facility] Work Phone: 1(728) 351-138703-28-2024 Progress note Author Maame Pinon [facility] September 13, 2023 4:24pm Note Date/Time September 13, 2023 4:2 4pm [facility] Medical Records Department [address] [place] [address] Progress Note - Hospitalist 09/13/23 1622 MR#: [id number] Acct: [id number] Name: KAYLENE HAYNES LY Rep #:[id number] : 1935 88 From: Maame Pinon DO PCP: Dr. Howard Zimmerman MD Status:ADM I NO Location: [place] DJ274-1 Reason for Visit Reason for Visit: Weakness/Debility Subjective Subjective No issues overnight. Patient is very pleasantly awaiting pre-CERT for group home placement. Objective Data Objective Data Vital Signs: [...] pre-CERT from insurance company for discharge to longterm facility for ongoing rehab services. Charges/Coding Visit Charges Inpatient E&M: 70671 Subs Hosp L1 09/13/23 1624 <Electronically signed by Maame Pinon DO> Cosigner Signature (if applicable): CC: ~ Signed [facility] Work Phone: 1(182) 609-149303-27-2024 Progress note Author Maame Pinon [facility] September 12, 2023 4:49pm Note Date/Time September 12, 2023 4:4 6pm [facility] Medical Records Department [address] [place] [address] Progress Note - Hospitalist 09/12/23 1644 MR#: [id number] Acct: [id number] Name: KAYLNEE HAYNES Rep #:[id number] : 1935 88 From: Maame Pinon DO PCP: Dr. Howard Zimmerman MD Status:ADM I NO Location: [place] [address]-1 Reason for Visit Reason for Visit: Debility/weakness [...] pre-CERT from insurance company for discharge to longterm facility for ongoing rehab services. Charges/Coding Visit Charges Inpatient E&M: 62374 Subs Hosp L1 09/12/23 6441 <Electronically signed by Maame Pinon DO> Cosigner Signature (if applicable): CC: ~ Signed [facility] Work Phone: 1(732) 979-699503-26-2024 Progress note Author Maame Pinon [facility] September 11, 2023 4:15pm Note Date/Time September 11, 2023 4:1 5pm [facility] Medical Records Department [address] [place] [address] Progress Note - Hospitalist 09/11/23 1610 MR#: [id number] Acct: [id number] Name: KAYLENE HAYNES Rep #:[id number] : 1935 88 From: Maame Pinon DO PCP: Dr. Howard Zimmerman MD Status:ADM I NO Location: [place] RD821-1 Reason for Visit Reason for Visit: Debility/weakness [...] % (Auto) 51.1, Lymph % (Auto) 38.3, Faulkner% (Auto) 9.0, Eos % (Auto) 1.0, Baso [...] no intubation Charges/Coding Visit Charges Inpatient E&M: 28269 Subs Hosp L2 09/11/23 1615 <Electronically signed by Maame Pinon DO> Cosigner Signature (if applicable): CC: ~ Signed [facility] Work Phone: 1(147) 923-465703-26-2024 Consult note Author Eri Interiano [facility] September 11, 2023 3:27pm Note Date/Time September 11, 2023 2:3 8pm [facility] Medical Records Department [address] [place] [address] Consultation - Neurology 09/11/23 1435 MR#: [id number] Acct: [id number] Name: KAYLENE HAYNES Rep #:[id number] : 1935 88 From: Eri Interiano MD PCP: Dr. Howard Zimmerman MD Status:ADM I NO Location: [place] KH260-9 Assessment and Plan: Neuro Assessment/Plan KAYLENE HAYNES [...] signficant side effects from the medication. [facility] Medical History (Updated 09/10/23 @ 16:50 by [...] normal except as noted Coordination / Balance: kebpgt-lx-trfp test normal, gloq-rn-vadu test normal andRomberg test negative Speech: speech normal Sensory Exam: double simultaneous stimulation for sensation normal Motor Exam: strength 5/5 throughout and muscle tone normal throughout Coordination: ylvjfd-cn-hego test normal and fdrj-ws-fleh test normal Pupil Exam: Normal Pupillary Reactivity/Response: [...] % (Auto) 51.1, Lymph % (Auto) 38.3, Faulkner% (Auto) 9.0, Eos % (Auto) 1.0, Baso [...] mls @ 15 mls/hr 09/08/23 14:55 IV .[id number] PRN Additional IVPB Infusion Sodium Chloride 250 mls @ 15 mls/hr 09/08/23 14:55 IV .[id number] PRN Saline Flush Nutritional Formula (Lactose Free) [...] Marly Ochoa DO; Roopa Tolbert MD~ Signed [facility] Work Phone: 1(509) 303-786803-25-2024 Progress note Author Maame [facility] September 10, 2023 4:53pm Note Date/Time September 10, 2023 4:5 3pm [facility] Medical Records Department [address] [place] [address] Progress Note - Hospitalist 09/10/23 1645 MR#: [id number] Acct: [id number] Name: KAYLENE HAYNES LY Rep #:[id number] : 1935 88 From: Maame Pinon DO PCP: Dr. Howard Zimmerman MD Status:ADM I NO [place] [facility] FW481-0 Reason for Visit Reason for Visit: Debility/weakness Subjective Subjective Patient is a 88-year-old white female who presented to emergency department [facility] on 09/07/2022 after fall. She was found [...] 37.1 L, Lymph % (Auto) 48.5 H, Faulkner % (Auto) 9.1, Eos % (Auto) 2.8, [...] no intubation Charges/Coding Visit Charges Inpatient E&M: 86360 Subs Hosp L2 09/10/23 1653 <Electronically signed by Maame Pinon DO> Cosigner Signature (if applicable): CC: ~ Signed [facility] Work Phone: 1(867) 923-816203-25-2024 Progress note Author Daisy Mack [facility] September 09, 2023 11:52pm Note Date/Time September 09, 2023 11: 52pm [facility] Medical Records Department [address] [place] [address] Progress Note - Hospitalist 09/09/23 2352 MR#: [id number] Acct: [id number] Name: KAYLENE HAYNES LY Rep #:[id number] : 1935 88 From: Daisy Mack MD PCP: Dr. Howard Zimmerman MD Status:ADM I NO Location: [place] [address] Hospitalist Note Patient with mild agitation, attempting to get out of bed, underlying Parkinson's disease with dementia, will dose with low dose seroquel x 1 and if assists may consider q HS if needed/appropriate. 09/09/232351 <Electronically signed by Daisy Mack MD> Cosigner Signature (if applicable): CC: ~ Signed [facility] Work Phone: 1(926) 116-911803-24-2024 Progress note Author Gonzalez Garza [facility] September 09, 2023 4:20pm Note Date/Time September 09, 2023 4:1 4pm [facility] Medical Records Department [address] [place] [address] Progress Note - Hospitalist 09/09/23 1611 MR#: [id number] Acct: [id number] Name: KAYLENE HAYNES LY Rep #:[id number] : 1935 88 From: Gonzalez Garza DO PCP: Dr. Howard Zimmerman MD Status:ADM I NO Location: [place] [address] Reason for Visit Reason for Visit: Diagnoses [...] Clarity Clear, Urine pH 6.5, Ur Specific [place] 1.020, Urine Protein 15 H, Urine Glucose [...] % (Auto) 53.3, Lymph % (Auto) 36.3, Faulkner % (Auto) 6.9, Eos % (Auto) 1.1, [...] she will need temporary placement in a longterm facility #2 Parkinson's disease-complicates care, medical course, [...] 25 minutes Charges/Coding Visit Charges Inpatient E&M: 60972 Subs Hosp L1 09/09/23 1620 <Electronically signed by Gonzalez Garza DO> Cosigner Signature (if applicable): CC: ~ Signed [facility] Work Phone: 1(260) 833-954603-23-2024 History and physical note Author Gonzalez [facility] September 08, 2023 4:00pm Note Date/Time September 08, 2023 3:4 8pm [facility] Medical Records Department [address] [place] [address] H&P Exam - Hospitalist 09/08/23 1546 MR#: [id number] Acct: [id number] Name: KAYLENE HAYNES Rep #:[id number] : 1935 88 From: Gonzalez Garza DO PCP: Dr. Howard Zimmerman MD Status:ADM I NO [place] [facility] WJ671-0 HPI - General General Date of Admission: 09/08/23 Date of Service: 09/08/23 Chief Complaint: Debility, weakness HPI Narrative KAYLENE HAYNES, is a 88 F who presents to the emergency room at [facility] after being brought in by [...] will be placed in observation status on [facility] 3, she will be seen by PT and OT, she will need temporary placement in a longterm facility, I talked to the family today they prefer TCU if possible. I talked with social media director about it also. [facility] Medical History CKD (chronic kidney disease), [...] % (Auto) 51.3, Lymph % (Auto) 35.9, Faulkner% (Auto) 7.5, Eos % (Auto) 2.5, Baso [...] she will need temporary placement in a longterm facility for short-term rehabservices. Nursing states that [...] 55 minutes Charges/Coding Visit Charges Inpatient E&M: 20172 Init Hosp L2 09/08/23 1600 <Electronically signed by Gonzalez Garza DO> Cosigner Signature (if applicable): CC: Dr. Gonzalez Garza DO; Dr. Howard Zimmerman MD~ Signed [facility] Work Phone: 1([phone]) 989-573203-23-2024 Discharge summary Author Germánedgardo Benson [facility] September 08, 2023 1:40pm Note Date/Time September 08, 2023 10: 23am [facility] Medical Records Department [address] [place] [address] Emergency Department Summary 09/08/23 MR#: [id number] Acct: [id number] Name: KAYLENE HAYNES Rep #:[id number] : 1935 88 From: Germán Benson DO PCP: Dr. Howard Zimmerman MD Status:ADM I NO [place] [facility] RC888-6 [facility] History of Present Illness Chief Complaint: [...] unsure if she hit her head. PFSH [facility] Medical History CKD (chronic kidney disease), [...] % (Auto) 51.3 Lymph % (Auto) 35.9 Faulkner % (Auto) 7.5 Eos % (Auto) 2.5 [...] your Primary Care Provider. Call [facility] ([phone]) or report to the closest Emergency Room. Call 911 if necessary. 09/08/23 1340 <Electronically signed by Germán Benson DO> Cosigner Signature (if applicable): CC: Dr. Howard Zimmerman MD ~ Signed [facility] Work Phone: 1(424) 239-157103-23-2024 Discharge summary Author Germán Benson [facility] September 08, 2023 1:40pm Note Date/Time September 08, 2023 10: 23am [facility] Medical Records Department [address] [place] [address] Emergency Department Summary 09/08/23 MR#: [id number] Acct: [id number] Name: KAYLENE HAYNES Rep #:[id number] : 1935 88 From: Germán Benson DO PCP: Dr. Howard Zimmerman MD Status:ADM I NO Location: [facility] OL561-4 [facility] History of Present Illness Chief Complaint: [...] are unsure if she hit her head. [facility] Medical History CKD (chronic kidney disease), stage [...] % (Auto) 51.3 Lymph % (Auto) 35.9 Faulkner % (Auto) 7.5 Eos % (Auto) 2.5 [...] problems, contact your Primary Care Provider. Call [employer] [facility] ([phone]) or report to the closest Emergency Room. Call 911 if necessary. 09/08/23 1340 <Electronically signed by Germán Benson DO> Cosigner Signature (if applicable): CC: Dr. Howard Zimmerman MD ~ Signed [facility] Work Phone: 1(100) 676-777703-01-2024 History of Present illness Narrative* Bart Brooks DO - 08/17/2023 10:52 AM EST Diagnosis: 1) Lymphoproliferative disorder. HPI: The patient is a 88 yo female whom I saw in consultation at [facility] in 2006for pancytopenia following an admission for [...] definite evidence of malignancy. PET done at [facility] 07/31/11: The PET scan revealed [...] k/uL 6.51 (H) 6.98 (H) 6.43 (H) Faulkner% % 6.0 7.0 6.0 Abs Faulkner <0.87 k/uL 0.87 (H) 0.96 (H) 0.90 [...] (A) Few (A) Tear Drop Few [place] [employer] Occasional Occasional Occasional DTYPE Manual Manual [...] which included preparing to see the patient, zuyz-fq-mozm patient care, completing clinical documentation, obtaining and/or reviewing separately obtained history, performing a medically appropriate examination, counseling and educating the pat ient/family/caregiver, ordering medications, tests, or procedures, communicating with other HCPs (not separately reported), and communicating results to the patient/family/caregiver. Bart Broosk DO documented [facility] Miscellaneous Notes* Telephone Encounter - Selvin [...] electronically to the patient's pharmacy. Erika Tobin, Bank Note Designer III documented in this encounterOhio[facility]01-12-2024 Consult note Author Freddy Solano [facility] June 29, 2023 2:53pm Note Date/Time June 29, 2023 2 :53pm [facility] Medical Records Department [address] [place] [address] Counseling Note - Pharmacy 06/29/23 1453 MR#: [id number] Acct: [id number] Name: KAYLENE HAYNES LY Rep #:[id number] : 1935 88 From: Freddy Solano PCP: Dr. Howard Zimmerman MD Status:ADM I NO Y Location: [place] [address] Pharmacy [facility] Pharmacy Service has performed discharge medication reconciliation [...] Signature (if applicable): Date CC: ~ Signed [facility] Work Phone: 1(545) 270-689101-12-2024 Discharge summary Author Avel Massey [facility] June 29, 2023 1:46pm Note Date/Time June 29, 2023 1 :45pm [facility] Medical Records Department [address] [place] [address] Instructions for Home/Discharge Instructions 06/29/23 0940 MR#: [id number] Acct: [id number] Name: KAYLENE HAYNES Rep #:[id number] : 1935 88 From: Avel Marquez PCP: [...] Recorder Preventi (Urgent) Timeframe: 1 Day Facility: [facility] - Location: Cardiovascular Services Ordered [...] Interiano DO; Roopa Tolbert MD ~ Signed [facility] Work Phone: 1(229) 415-962601-11-2024 Discharge summary Author Myrna Munguia [facility] June 28, 2023 2:51pm Note Date/Time June 28, 2023 1 :02pm [facility] Medical Records Department [address] [place] [address] Emergency Department Summary 06/28/23 MR#: [id number] Acct: [id number] Name: KAYLENE HAYNES LY Rep #:[id number] : 1935 88 From: Myrna Munguia MD [...] do seem to be improvingat this time. [facility] Medical History (Updated 06/28/23 @ 13:22 by [...] upon returning. Patient had been placed on manager cardiac cath. IV line initiated. Labwork obtained to evaluate [...] 33.4 L Lymph % (Auto) 53.0 H Faulkner % (Auto) 8.4 Eos % (Auto) 2.3 [...] THREE TIMES A DAY Primary Care Provider: oHward Zimmerman Chi Referrals: Howard Zimmerman Chi, MD [Primary Care Provider] - Disposition Disposition: Acute Care Hospital [facility] What to do if you have Problems For any increased pain, shortness of breath, bleeding, nausea or vomiting, chestpain, or any unexpected problems, contact your Primary Care Provider. Call [facility] ([phone]) or report to the closest Emergency Room. Call 911 if necessary. 06/28/23 1459 <Electronically signed by Myrna Munguia MD> Cosigner Signature (if applicable): CC: Dr. Howard Zimmerman MD ~ Signed [facility] Work Phone: 1(114) 919-997501-11-2024 Discharge summary Author Myrna Munguia [facility] June 28, 2023 2:51pm Note Date/Time June 28, 2023 1 :02pm [facility] Medical Records Department [address] [place] [address] Emergency Department Summary 06/28/23 MR#: [id number] Acct: [id number] Name: KAYLENE HAYNES Rep #:[id number] : 1935 88 From: Myrna Munguia MD [...] do seem to be improvingat this time. [facility] Medical History (Updated 06/28/23 @ 13:22 by [...] upon returning. Patient had been placed on manager cardiac cath. IV line initiated. Labwork obtained to evaluate [...] 33.4 L Lymph % (Auto) 53.0 H Faulkner % (Auto) 8.4 Eos % (Auto) 2.3 [...] Provider] - Disposition Disposition: Acute Care Hospital [facility] What to do if you have Problems For any increased pain, shortness of breath, bleeding, nausea or vomiting, chestpain, or any unexpected problems, contact your Primary Care Provider. Call [facility] ([phone]) or report to the closest Emergency Room. Call 911 if necessary. 06/28/23 1459 <Electronically signed by Myrna Munguia MD> Cosigner Signature (if applicable): CC: Dr. Howard Zimmerman MD ~ Signed [facility] Work Phone: 1(896) 605-657301-11-2024 History and physical note Author Daisy Mack [facility] June 28, 2023 2:12pm Note Date/Time June 28, 2023 1 :31pm [facility] Medical Records Department [address] [place] [address] H&P Exam - Hospitalist 06/28/23 1330 MR#: [id number] Acct: [id number] Name: KAYLENE HAYNES Rep #:[id number] : 1935 88 From: Daisy Mack MD [...] who lives alone who presents to the [facility] ED on 06/28/23 with history of [...] aspirin 325 mg p.o. x 1. [facility] Medical History CKD (chronic kidney disease), [...] 4 extremities, no focal deficits, finger-nose and xsgx-qi-jlma appropriate, equivocal Babinski, sensation appropriate, no further [...] 33.4 L, Lymph % (Auto) 53.0 H, Faulkner % (Auto) 8.4, Eos % (Auto) 2.3, [...] who lives alone who presents to the [facility] ED on 06/28/23 with history of [...] patient does admit she sees Dr. Brooks [facility] oncology routinely suspect this is an ongoing [...] 16 minutes. Charges/Coding Visit Charges Inpatient E&M: 38992 Init Hosp L2 Procedures Hospitalists Procedures: 54542 Advncd Care Plan 30 Min 06/28/23 1412 <Electronically signed by Daisy Mack MD> Cosigner Signature (if applicable): CC: Dr. Daisy Mack MD; Dr. Howard Zimmerman MD~ Signed [facility] Work Phone: 1(126) 789-328901-11-2024 History and physical note Author [facility] June 28, 2023 2:12pm Note Date/Time June 28, 2023 1 :31pm [facility] Medical Records Department [address] [place] [address] H&P Exam - Hospitalist 06/28/23 1330 MR#: [id number] Acct: [id number] Name: KAYLENE HAYNES LY Rep #:[id number] : 1935 88 From: Daisy Mack MD [...] who lives alone who presents to the [facility] ED on 06/28/23 with history of [...] 4 extremities, no focal deficits, finger-nose and cfsj-bh-lnyj appropriate, equivocal Babinski, sensation appropriate, no further [...] 33.4 L, Lymph % (Auto) 53.0 H, Faulkner % (Auto) 8.4, Eos % (Auto) 2.3, [...] Back by Olivier Maradiaga MD to Dr Ezar MD, and understanding confirmed on 06/28/2023 13:09:44 [...] who lives alone who presents to the [facility] ED on 06/28/23 with history of [...] patient does admit she sees Dr. Brooks [facility] oncology routinely suspect this is an ongoing [...] 16 minutes. Charges/Coding Visit Charges Inpatient E&M: 68068 Init Hosp L2 Procedures Hospitalists Procedures: 24981 Advncd Care Plan 30 Min 06/28/23 1412 <Electronically signed by Daisy Mack MD> Cosigner Signature (if applicable): CC: Dr. Daisy Mack MD; Dr. Howard Zimmerman MD~ Signed [facility] Work Phone: [phone]) 453-132612-05-2023 Miscellaneous Notes* Telephone Encounter - Ayanna Garza [...] changing position slowly. * [facility] 3[facility]20 PM EST Pt called for Dr. Felder to make sure she's doing everything she should be doing for her PD. Pt stated the PD is "working on her" - [phone]. 04/04/23 FUV w/Dr. Felder 10/08/23 FUV w/Gerry Felder documented in this encounterOhiohealth Riverside Methodist Hospital10-18-2023 History of Present illness Narrative* Selvin Felder MD - 04/04/2023 4:48 PM EDT [facility] - FOLLOW UP EVALUATION Howard Zimmerman MD [address] [address] I had the pleasure of seeing Ms. [...] when walking sometimes. Plans on going to [employer] for PT. 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 Rapid alternating movement normal. Vydl-gd-znbm normal.Left: Ypmcwx-th-zcsy normal. Rapid alternating movement normal. Tocz-sd-piyy normal. Gait Generally stable gait except for [...] appointment, pleasefeel free to send me a [employer] message or contact the office - PT [...] Sincerely, Selvin Felder MD documented in this encounterOhiohealth Riverside Methodist Hospital10-18-2023 Instructions* Patient Instructions* Selvin Felder MD [...] appointment, pleasefeel free to send me a [employer] message or contact the office Movement Disorders Medication Schedule: Medications 8a 1p 6p Sinemet 25/100 2 2 2 Return in about 6 months (around 10/04/2023). If there are any concerns before your next visit, please call or you can send a message through [employer]. You can also now schedule and select appointments through [employer]. Selvin Felder MD Fatigue and Parkinson s [...] researchers studying fatigue. Flaco Valenzuela, Ph.D. at [facility] is studying Multi-modal Neuroimaging of Fatigue [...] people with PD. Bishnu Christensen M.D. at [facility] is studying Remotely Supervised Transcranial Direct Current [...] For more information and resources see [email or web address].[email or web address].[email or web address] [facility] is a Center of Excellence for [...] maneuvers increase blood pressure. documented in this encounterOhiohealth Riverside Methodist Hospital08-31-2023 NoteHNO ID: [id number] Author: Tejal Willard, PT Service: ? Author Type: Physical Therapist Type: Progress Notes Filed: 02/15/2023 9:59 AM Note Text: 02/15/2023 [facility] PHYSICAL THERAPY [...] or scheduled additional follow-up appointments. Tejal Willard, [facility]08-29-2023 History of Present illness Narrative* Bart Brooks, - 02/13/2023 12:08 PM EDT Diagnosis: 1) Lymphoproliferative disorder. HPI: The patient is a 87 yo female whom I saw in consultation at [facility] in 2006for pancytopenia following an admission for [...] definite evidence of malignancy. PET done at [facility] 07/31/11: The PET scan revealed [...] No jaundice or rash. No petechiae. NEUROLOGIC: analytical manager II-XII are grossly intact. No focal motor [...] k/uL 8.64 (H) 6.98 (H) 6.43 (H) Faulkner% % 6 7.0 7.0 6.0 Abs Faulkner <0.87 k/uL 0.75 1.08 (H) 0.96 (H) [...] Few (A) Tear Drop Few Few [place] Bodies Occasional Occasional DTYPE Manual Manual Realym% [...] which included preparing to see the patient, mfmd-je-jgnv patient care, completing clinical documentation, obtaining and/or reviewing separately obtained history, performing a medically appropriate examination, counseling and educating the pat ient/family/caregiver, communicating with other HCPs (not separately reported), and communicating results to the patient/family/caregiver. Bart Brooks DO documented in this encounterOhiohealth Riverside Methodist Hospital08-01-2023 Discharge summary Author Gonzalez Garza [facility] January 16, 2023 11:47am Note Date/Time January 16, 2023 11: 45am [facility] Medical Records Department [address] [place] [address] Instructions for Home/Discharge Instructions 01/16/23 1144 MR#: [id number] Acct: [id number] Name: KAYLENE HAYNES Rep #:[id number] : 1935 87 From: Gonzalez Garza DO [...] CC: Dr. Howard Zimmerman MD ~ Signed [facility] Work Phone: [phone] History and physical note Author Gonzalez Garza [facility] January 15, 2023 8:10pm Note Date/Time January 15, 2023 7:58 pm [facility] Medical Records Department [address] [place] [address] H&P Exam - Hospitalist 01/15/231954 MR#: [id number] Acct: [id number] Name: KAYLENE HAYNES Rep #:[id number] : 1935 87 From: Gonzalez Garza DO PCP: Dr. Howard Zimmerman MD Status:ADM I NO Location: [place] [address] HPI - General General Date of Admission: 01/15/23 Date of Service: 01/15/23 Chief Complaint: Presyncope, dysarthria HPI Narrative KAYLENE HAYNES, is a 87 F who presents to the emergency room at [facility] after sustaining a presyncopal episode in the parking lot at [facility]. She was getting out of her car. [...] had an echocardiogram here since 2020. [facility] Medical History Acute bronchitis, unspecified Acute [...] Document 01/15/23 16:52 RMA (Rec: 01/15/23 16:52 [facility] [id number]) Nutrition Malnutrition Evidence of Malnutrition Exists Yes [...] diet with consistency alteration as indicated per MANUFACTURING PRODUCTION MANAGER. Will continue 120mL ensure plus high protein [...] (Auto) 45.8 L, Lymph % (Auto) 40.9, Faulkner % (Auto) 9.2, Eos % (Auto) 1.3, [...] 55 minutes Charges/Coding Visit Charges Inpatient E&M: 73509 Init Hosp L2 01/15/232009 <Electronically signed by Gonzalez Garza DO> Cosigner Signature (if applicable): CC: Dr. Gonzalez Garza DO; Dr. Howard Zimmerman MD~ Signed [facility] Work Phone: 1(471) 672-209707-31-2023 Discharge summary Author Stephanie [facility] January 15, 2023 4:35pm Note Date/Time January 15, 2023 11:0 2am [facility] Medical Records Department [address] [place] [address] Emergency Department Summary 01/15/23 MR#: [id number] Acct: [id number] Name: KAYLENE HAYNES LY Rep #:[id number] : 1935 87 From: Stephanie Gonzalez DO PCP: Dr. Howard Zimmerman MD Status:ADM I NO Location: [place] [address] HPI History of Present Illness Chief Complaint: [...] She denies chest pain or abdominal pain. [facility] Medical History Acute bronchitis, unspecified Acute sinusitis, [...] (Auto) 45.8 L Lymph % (Auto) 40.9 Faulkner % (Auto) 9.2 Eos % (Auto) 1.3 [...] Parkinson's disease Disposition Disposition: Acute Care Hospital [facility] What to do if you have Problems For any increased pain, shortness of breath, bleeding, nausea or vomiting, chestpain, or any unexpected problems, contact your Primary Care Provider. Call [facility] ([phone]) or report to the closest Emergency Room. Call 911 if necessary. 01/15/23 1635 <Electronically signed by Remus Ungur DO> Cosigner Signature (if applicable): CC: Dr. Howard Zimmerman MD ~ Signed [facility] Work Phone: 1(684) 386-146706-05-2023 Miscellaneous Notes* Telephone Encounter - [facility] Darryl Mcdonough - 11/20/2022 3:29 PM EDT Patient called asking for EEG order to be faxed to [facility] diagnostic scheduling. Fax number [phone]. Order, demographics, and coverage faxed as requested. Electronically signed by [facility] Darryl Sharonda at 11/20/2022 3:30 PM EDT documented in this encounterOhiohealth Riverside Methodist Hospital04-10-2023 Discharge summary Author Marbella Doss [facility] September 25, 2022 2:57pm Note Date/Time September 19, 2022 1:42 pm [facility] Physical Therapy [facility] [address] [place] [address]. [address] [place] [address] / REHABILITATION SERVICES DISCHARGE SUMMARY MR#: [id number] Acct: [id number] Name: KAYLENE HAYNES Rep #: [id number] : 1935 87 From: Marbella Ramos Referring DrLiu: OUT OF TOWN DOCTOR Status: REG RCR [facility] It has been [...] please feel free to call me at [phone]. Thank you for the referral of thispatient. Sincerely, Marbella Doss, ROCHELLE Balance/Gait/Functional tests - Balance/Special Test Scores Functional Gait Assessment Score: 17 % Disability: 43.3400 Lower Extremity Functional Score: 57 <Electronically signed by Marbella Doss MPT> 09/25/22 1457 CC: Dr. Howard Zimmerman MD; SRIDEVI SOLO ~ Signed [facility] Work Phone: 1(695) 810-344702-28-2023 History of Present illness Narrative* Bart Brooks, DO - 08/15/2022 11:13 AM EST Diagnosis: 1) Lymphoproliferative disorder. HPI: The patient is a 86 yo female whom I saw in consultation at [facility] in 2006for pancytopenia following an admission for [...] definite evidence of malignancy. PET done at [facility] 07/31/11: The PET scan revealed [...] No jaundice or rash. No petechiae. NEUROLOGIC: analytical manager II-XII are grossly intact. No focal motor [...] (H) 6.05 (H) 6.84 (H) 6.51 (H) Faulkner% % 6.0 11.0 9.0 6.0 Abs Faulkner <0.87 k/uL 0.97 (H) 1.51 (H) 1.38 [...] Target Cells Few Few Few Few [place] Bodies Occasional Occasional DTYPE Manual ANC(includeSEG+BAND) k/uL [...] care. Bart Brooks DO documented in this encounterOhiohealth Riverside Methodist Hospital02-01-2023 Progress note Author Rhoda Mercado [facility] July 19, 2022 12:14pm Note Date/Time July 19, 2022 1 2:14pm [facility] [address] [place], [place] [address] [address] Progress Note - Wound Care 07/19/22 1211 MR#: [id number] Acct: [id number] Name: KAYLENE HAYNES Rep #:[id number] : 1935 87 From: Rhoda Mercado NP LITERACY CONSULTANT-C PCP: Dr. Howard Zimmerman MD Status:REG R [...] Recorded Date Recorded By Document 07/19/22 09:48 [facility] [id number] 07/19/22 09:55 [facility] 07/19/22 09:48 - Today's Visit Information Type of service Follow-up Visit (Physician/VOICE AND DATA TECHNICIAN ) Arrival Mode Ambulatory Transfer Assistance None [...] Recorded Date Recorded By Document 07/19/22 09:48 [facility] [id number] 07/19/22 09:55 [facility] 07/19/22 09:48 Wound Center Nurse 1 [...] Date Recorded By Document 07/19/22 10:03 MW [id number] 07/19/22 10:05 MW 07/19/22 10:03 Wound Center [...] Date Recorded By Document 07/19/22 10:05 MW [id number] 07/19/22 10:06 MW 07/19/22 10:05 Wound Care [...] Cosigner Signature (if applicable): CC: ~ Signed [facility] Work Phone: 1(691) 505-962901-31-2023 NoteHNO ID: [id number] Author: Tejal Willard PT Service: ? Author [...] of Care: created on 07/18/22 through 09/16/22 [place] in home exercise program. Patient will demonstrate [...] Planned: 8 Planned Treatment Interventions: Therapeutic exercise (96605), Neuromuscular re-education (81769), Therapeutic activities (58541), Patient/Family/Caregiver Education, Gait Training (34171) PLAN FOR NEXT VISIT: pt would like [...] Retired Recreation / Current Exercise: exercises at [employer] in [place] 3 days/week AND goes to Parkinsons group exercise class 2 days/week at [place] in [place] Home Environment Patient Lives With: Self/Alone Home [...] / Alignment Posture: Forw (more content not included)...[facility] 07-18-2022 History of Present illness Narrative* [...] of Care: created on 07/18/22 through 09/16/22 [place] in home exercise program. Patient will demonstrate [...] Planned: 8 Planned Treatment Interventions: Therapeutic exercise (15819), Neuromuscular re- education (07410), Therapeutic activities (52642), Patient/Family/Caregiver Education, Gait Training (67163) PLAN FOR NEXT VISIT: pt would like [...] Retired Recreation / Current Exercise: exercises at [employer] in [place] 3 days/week & goes to Parkinsons group exercise class 2 days/week at [place] in [place] Home Environment Patient Lives With: Self/Alone Home [...] Tejal Willard PT documented in this encounterCleveland [id number] Miscellaneous Notes* Telephone Encounter - Erika Tobin [facility] - 07/07/2022 1:39 PM EST Pt returned [...] errors. * Telephone Encounter - Erika Tobin [facility] - 07/06/2022 3:47 PM [...] how best to manage this. CALLBACK #: [phone] OK TO LEAVE MESSAGE: yes LAST FUV: yesterday with II documented in this encounterOhiohealth Riverside Methodist Hospital01-19-2023 Miscellaneous Notes* Telephone Encounter - Estrella Her RN - 07/06/2022 10:50 AM EST Clarification of C/L 25-100 mg dose was given to pharmacist per Dr. Solo's OV notes. 2 tablets by mouth TID at 8a, 1p & 6p. * Telephone Encounter - [facility] Darryl Mcdonough - 07/06/2022 9:30 AM EST [facility] pharmacy called asking for clarification of directions for Sinemet sent yesterday. Sig: "12 tablet 3 times a day" [phone] Electronically signed by [facility] Darryl Mcdonough at 07/06/2022 9:32 AM EST documented in this encounterOhiohealth Riverside Methodist Hospital01-18-2023 Instructions* Patient Instructions* Sridevi Solo MD - 07/05/2022 4:30 PM EST Please, increase carbidopa/levodopa 25/100 to 2 tablets at 8 AM, 1 PM and 6 PM Please, physical therapy reassessment Please, follow-up in 6 months documented in this encounterOhiohealth Riverside Methodist Hospital01-18-2023 History of Present illness Narrative* Sridevi Solo MD - 07/05/2022 4:22 PM EST [facility] - FOLLOW UP EVALUATION Howard Zimmerman MD [address] [address] I had the pleasure of seeing Ms. [...] or around: 01/02/23 Level of service : 77714 (40-54 min). Time spent 45 min on the day of service, which included preparing to see the patient, ucea-hi-lxst patient care, completing clinical documentation, obtaining and/or [...] 2022 at 4:24 PM documented in this encounterOhiohealth Riverside Methodist Hospital01-18-2023 Progress note Author Rhoda Mercado [facility] July 05, 2022 10:20am Note Date/Time July 05, 2022 1 0:20am [facility] [address] [place] [address] Progress Note - Wound Care 07/05/22 1016 MR#: [id number] Acct: [id number] Name: KAYLENE HAYNES Rep #:[id number] : 1935 87 From: Rhoda Mercado NP LITERACY CONSULTANT-C PCP: Dr. Howard Zimmerman MD Status:REG R [...] Date Recorded By Document 06/23/22 09:32 YOLANDA [id number] 06/23/22 09:34 Document 06/28/22 10:02 ME [id number] 06/28/22 10:08 ME Document 07/05/22 09:40 ME [id number] 07/05/22 09:43 AK 06/23/22 06/28/22 07/05/22 09:32 10:02 09:40 - Today's Visit Information Type of service Follow-up Visit Follow-up Visit Follow-up Visit (Physician/VOICE AND DATA TECHNICIAN (Physician/VOICE AND DATA TECHNICIAN (Physician/VOICE AND DATA TECHNICIAN ) ) ) Arrival Mode Ambulatory Ambulatory [...] Recorded Date Recorded By Document 06/23/22 09:32 [id number] 06/23/22 09:34 Document 06/28/22 10:02 ME [id number] 06/28/22 10:08 AK Document 07/05/22 09:40 ME [id number] 07/05/22 09:43 AK 06/23/22 06/28/22 07/05/22 09:32 [...] Medium (34-66%) Medium (34-66%) -Granulation Quality Red [place] -Slough/Fibrin Yes Yes Yes -Necrosis Amt Small [...] Date Recorded By Document 06/23/22 12:25 PL [id number] 06/23/22 12:26 PL Document 06/28/22 10:18 MW [id number] 06/28/22 10:20 MW Document 07/05/22 09:54 MW [id number] 07/05/22 09:56 MW 06/23/22 06/28/22 07/05/22 12:25 [...] Recorded Date Recorded By Document 06/23/22 09:49 [id number] 06/23/22 09:51 JF Document 06/28/22 10:29 MW [id number] 06/28/22 10:31 MW Document 07/05/22 09:57 AK [id number] 07/05/22 09:58 AK 06/23/22 06/28/22 07/05/22 09:49 [...] 1020 <Electronically signed by Rhoda Mercado NP LITERACY CONSULTANT-C> Cosigner Signature (if applicable): CC: ~ Signed [facility] Work Phone: 1(524) 845-709701-13-2023 History of Present illness Narrative* Ramila Barton, [...] 30, 2022 1:25 PM documented in this encounterOhiohealth Riverside Methodist Hospital01-11-2023 Progress note Author Rhoda Mercado [facility] June 28, 2022 11:06am Note Date/Time June 28, 2022 1 1:06am [facility] [address] [place] [address] Progress Note - Wound Care 06/28/22 1102 MR#: [id number] Acct: [id number] Name: KAYLENE HAYNES LY Rep #:[id number] : 1935 87 From: Rhoda Mercado NP LITERACY CONSULTANT-C PCP: Dr. Howard Zimmerman MD Status:REG R [...] Date Recorded By Document 06/23/22 09:32 YOLANDA [id number] 06/23/22 09:34 YOLANDA Document 06/28/22 10:02 JUAN [id number] 06/28/22 10:08 AK 06/23/22 06/28/22 09:32 10:02 - Today's Visit Information Type of service Follow-up Visit Follow-up Visit (Physician/VOICE AND DATA TECHNICIAN (Physician/VOICE AND DATA TECHNICIAN ) ) Arrival Mode Ambulatory Ambulatory Patient [...] Recorded Date Recorded By Document 06/23/22 09:32 [id number] 06/23/22 09:34 Document 06/28/22 10:02 JUAN [id number] 06/28/22 10:08 JUAN 06/23/22 06/28/22 09:32 10:02 [...] Medium (34-66%) Medium (34-66%) -Granulation Quality Red [place] -Slough/Fibrin Yes Yes -Necrosis Amt Small (1-33%) [...] Date Recorded By Document 06/23/22 12:25 PL [id number] 06/23/22 12:26 PL Document 06/28/22 10:18 MW [id number] 06/28/22 10:20 MW 06/23/22 06/28/22 12:25 10:18 [...] Recorded Date Recorded By Document 06/23/22 09:49 [id number] 06/23/22 09:51 Document 06/28/22 10:29 MW [id number] 06/28/22 10:31 MW 06/23/22 06/28/22 09:49 10:29 [...] Cosigner Signature (if applicable): CC: ~ Signed [facility] Work Phone: 1(932) 663-505501-06-2023 Progress note Author Paige May [facility] June 23, 2022 1:02pm Note Date/Time June 23, 2022 1: 02pm [facility] [address] [place] [address] Progress Note - Wound Care 06/23/22 1252 MR#: [id number] Acct: [id number] Name: KAYLENE HAYNES Rep #:[id number] : 1935 87 From: Paige BRUNSON PCP: [...] 19.8 Charges/Coding Wound Center CF Procedures 96XXX-98XXX: 58982 RMVL DEVITAL TIS 20 CM/< Multi Select Codes Wound Center CF Procedures 96XXX-98XXX: 21027 RMVL DEVITAL TIS 20 CM/< Physical Exam [...] Date Recorded By Document 06/23/22 09:32 JF [id number] 06/23/22 09:34 06/23/22 09:32 - Today's Visit Information Type of service Follow-up Visit (Physician/VOICE AND DATA TECHNICIAN ) Arrival Mode Ambulatory Patient Identification Verified [...] Date Recorded By Document 06/23/22 09:32 JF [id number] 06/23/22 09:34 06/23/22 09:32 Wound Center Nurse [...] Date Recorded By Document 06/23/22 12:25 PL [id number] 06/23/22 12:26 PL 06/23/22 12:25 Wound Center [...] Recorded Date Recorded By Document 06/23/22 09:49 [id number] 06/23/22 09:51 06/23/22 09:49 Wound Care Nurse [...] at rest. She will return to the [facility] in 1 week. She will return sooner or present to the ED should any signs or symptoms of infection arise. 06/23/22 1302 <Electronically signed by Paige BRUNSON> Cosigner Signature (if applicable): CC: ~ Signed [facility] Work Phone: 1(732) 880-994511-25-2022 Hospital Discharge instructions Additional Instructions Please have your sutures removed from your right lower leg in 12 to 14 days. [facility] Work Phone: 1(236) 675-658410-18-2022 Miscellaneous Notes* Telephone Encounter - Myrna Lees RN - 04/04/2022 9:59 AM EDT Order pending. Myrna Lees RN * Telephone Encounter - Ligia Monson - 04/04/2022 9:49 AM EDT Patient is scheduled for mammogram screening on 06/30/2022. Requesting updated order, current orderexpires 05/02/2022. Thank you. documented in this encounterOhiohealth Riverside [facility] Hospital09-21-2022 Miscellaneous Notes* Telephone Encounter - Shannan [...] decide. Bart Brooks DO documented in this encounterOhiohealth Riverside Methodist Hospital08-30-2022 Miscellaneous Notes* Telephone Encounter - Karen [...] this. Bart Brooks DO documented in this encounterOhiohealth Riverside Methodist Hospital08-30-2022 History of Present illness Narrative* Bart Brooks DO - 02/14/2022 11:52 AM EDT Diagnosis: 1) Lymphoproliferative disorder. HPI: The patient is a 86 yo female whom I saw in consultation at [facility] in 2006for pancytopenia following an admission for [...] definite evidence of malignancy. PET done at [facility] 07/31/11: The PET scan revealed [...] history: She continues to participate in [employer] 3 times a week and Delay the [...] No jaundice or rash. No petechiae. NEUROLOGIC: analytical manager II-XII are grossly intact. No focal motor [...] (H) 8.64 (H) 6.05 (H) 6.84 (H) Faulkner% % 6 6.0 7.0 11.0 9.0 Abs Faulkner <0.87 k/uL 0.75 0.97 (H) 1.08 (H) 1.51 (H) 1.38 (H) Eosin% % 6 4.0 2.0 3.0 3.0 Abs Eosin <0.46 k/uL 0.75 (H) 0.64 (H) 0.31 0.41 0.44 Baso% % 1 2.0 2.0 0.0 1.0 Abs Baso <0.11 k/uL 0.12 (H) 0.32 (H) 0.31 (H) 0.00 0.43 (H) ANC(includeSEG+BAND) k/uL 5.96 5.09 5.78 Acanthocyte Few Few Few Few [place] Bodies Occasional Ovalocytes Few Few Few Few [...] 13.90 (H) 11.69 (H) 14.70 (H) RBC, [place] 3.90 - 5.20 m/uL 4.07 4.20 4.11 Hemoglobin, [place] 11.5 - 15.5 g/dL 12.3 12.7 12.5 Hematocrit, [place] 36.0 - 46.0 % 38.2 38.0 37.6 MCV, [place] 80.0 - 100.0 fL 93.9 90.5 91.5 MCH, [place] 26.0 - 34.0 pg 30.2 30.2 30.4 MCHC, [place] 30.5 - 36.0 g/dL 32.2 33.4 33.2 RDW, [place] 11.5 - 15.0 % 13.5 14.2 14.7 Platelet Cnt, [place] 150 - 400 k/uL 297 293 317 MPV, [place] 9.0 - 12.7 fL 10.7 10.5 9.6 Neut%, [place] % 50 41.4 48 Lymp%, [place] % 40 41.7 37 Faulkner%, [place] % 5 14.0 12 Eos%, [place] % 2 1.8 1 Baso%, [place] % 3 1.1 2 Abs Neut, [place] 1.45 - 7.50 k/uL 6.95 4.83 7.06 Abs Lymp, [place] 1.00 - 4.00 k/uL 5.56 (H) 4.88 (H) 5.44 (H) Abs Faulkner, [place] <0.87 k/uL 0.70 1.64 (H) 1.76 (H) Abs Eos, [place] <0.46 k/uL 0.28 0.21 0.15 Abs Baso, [...] care. Bart Brooks DO documented in this encounterOhiohealth Riverside Methodist Hospital06-20-2022 Miscellaneous Notes* Telephone Encounter - Daja [...] Pt stated she had labs done at [facility] 11/21/[address] Zimmerman. He noted that she had elevated white blook count and may want to be seen sooner by Dr Brooks. Please advise pt. [facility] documented in this encounterOhiohealth [facility]04-04-2022 Instructions* Patient Instructions* Sridevi Solo MD - 09/19/2021 3:15 PM EDT Please, increase carbidopa/levodopa 25/100 to 1.5 tablets 3 times a day at 8 AM, 1 PM and 6 PM Please, continue taking mirtazapine 7.5 mg at bedtime Please, think about re-visiting PD-specific physical therapy locally Please, follow-up in six months documented in this encounterOhiohealth Riverside Methodist Hospital04-04-2022 History of Present illness Narrative* Sridevi Solo MD - 09/19/2021 2:54 PM EDT [facility] - FOLLOW UP EVALUATION Howard Zimmerman MD [phone] [address] I had the pleasure of seeing Ms. [...] PROMIS-10 Office Visit from 09/19/2021 [facility] [...] Parkinson's Medication Schedule: Level of service : 96340 (40-54 min). Time spent 45 min on the day of service, which included preparing to see the patient, [id number] patient care, completing clinical documentation, obtaining and/or [...] Sincerely, Sridevi Solo MD [facility] History of Present illness Narrative* Bonnie Quinteros RN - 05/27/2019 9:07 AM EST Pt sitting up and tolerating po well * Bonnie Quinteros RN - 05/27/2019 8:34 AM EST PATIENT RECEIVED FROM OR VIA CART. SPONT RESP. WITH ASTROPHYSICS PROFESSOR IN ATTENDANCE. PLACED ON MONITOR. MONITOR ALARMS ON IN PACU. RT arm elevated and ice pack applied * Jenny De Santiago RN - 05/27/2019 7:12 AM EST Timeout performed prior to regional block procedure. Dr Kenyon in attendance. documented [facility] this [facility] Work Phone: Consult note Author Franca Bernard [facility] January 16, 2023 1:43pm Note Date/Time January 16, 2023 1:4 3pm [facility] Medical Records Department [address] [place] [address] [place] [address] Counseling Note - Pharmacy 01/16/23 1343 MR#: [id number] Acct: [id number] Name: KAYLENE HAYNES Rep #:[id number] : 1935 87 From: Franca Bernard PCP: Dr. 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 [facility] Diagnosis Onset Date Resolution Status Essential hypertension chron ic History of atrial myxoma chr onic Hyperlipidemia chronic Nonrheumatic mitral (valve) prolapse chronic Nonrheumatic mitral valve regurgitation chronic Nonrheumatic tricuspid valve regurgitation chronic Premature atrial contractions chronic Premature ventricular contraction chronic [facility] Work Phone: Evaluation note* 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 documented in this encounter [facility] note* 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 Hernia of abdominal wall Ventral hernia, unspecified, without mention of obstruction or gangrene documented in this encounter [facility] note* Diagnosis Onset Date Resolution Status Acute bronchitis, unspecified acute Acute sinusitis, unspecified acute Contact with and (suspected) exposure to other viral communicable diseases acute [facility] Work Phone: Evaluation note* Diagnosis Encounter for screening mammogram for malignant neoplasm of breast- Primary Other screening mammogram documented in this encounter [facility] note* Diagnosis Onset Date Resolution Status Acute bronchitis, unspecified acute Acute sinusitis, unspecified acute Contact with and (suspected) exposure to other viral communicable diseases acute Infected wound acute Laceration of leg acute Nonhealing nonsurgical wound acute [facility] Work Phone: Evaluation note* Diagnosis Parkinson's disease (HCC)- Primary Paralysis agitans Abnormality of gait 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 documented in this encounter [facility] note* 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 documented in this encounter [facility] note* Diagnosis Onset Date Resolution Status Acute bronchitis, unspecified acute Acute sinusitis, unspecified acute Contact with and (suspected) exposure to other viral communicable diseases acute Infected wound acute Laceration of leg acute Nonhealing nonsurgical wound acute Infected wound acute Laceration of leg acute Nonhealing nonsurgical wound acute [facility] Work Phone: Evaluation note* Diagnosis 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 Parkinson's disease (HCC) Paralysis agitans Abnormality of gait 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 [facility] Diagnosis Onset Date Resolution Status Acute bronchitis, unspecified acute Acute sinusitis, unspecified acute Contact with and (suspected) exposure to other viral communicable diseases acute Infected wound acute Laceration of leg acute Nonhealing nonsurgical wound acute Infected wound acute Laceration of leg acute Nonhealing nonsurgical wound acute Infected wound acute Laceration of leg acute Nonhealing nonsurgical wound acute [facility] Work Phone: Evaluation note* 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 [facility] Diagnosis Onset Date Resolution Status Infected wound acute Laceration of leg acute Nonhealing nonsurgical wound acute Infected wound acute Laceration of leg acute Nonhealing nonsurgical wound acute Infected wound acute Laceration of leg acute Nonhealing nonsurgical wound acute [facility] Work Phone: Evaluation note* Diagnosis Onset Date Resolution Status Infected wound acute Laceration of leg acute Nonhealing nonsurgical wound acute Infected wound acute Laceration of leg acute Nonhealing nonsurgical wound acute [facility] Work Phone: Evaluation noteNo assessment information available [facility] Work Phone: Evaluation note* Diagnosis Onset Date Resolution Status Essential hypertension chron ic Dysarthria acute Parkinson's disease acute Syncope acute [facility] Work Phone: Evaluation note* 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 [facility] Diagnosis Onset Date Resolution Status Essential hypertension chron ic Parkinson's disease acute Dysarthria resolved [facility] Work Phone: Evaluation note* Diagnosis Parkinson's disease without dyskinesia or fluctuating manifestations- Primary [facility] Diagnosis Encounter for screening mammogram for malignant neoplasm of breast Other screening mammogram [facility]* Diagnosis Onset Date Resolution Status Parkinson's disease acute Dysarthria resolved [facility] Work Phone: Evaluation note* Diagnosis Onset Date Resolution Status Brain TIA acute [facility] Work Phone: Evaluation note* Diagnosis Onset Date Resolution Status Brain TIA resolved [facility] Work Phone: Evaluation note* 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 [facility]* 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 [facility]* Diagnosis Onset Date Resolution Status Brain TIA resolved Anemia acute Debility acute Falls acute Generalized weakness acute Leukocytosis acute Parkinson's disease acute [facility] Work Phone: Evaluation note* Diagnosis Onset Date Resolution Status Brain TIA acute Debility acute Generalized weakness acute Leukocytosis resolved Acute encephalopathy acute Brain TIA acute Debility acute GERD (gastroesophageal reflux disease) acute Orthostatic hypotension acut e Syncope acute Hyperlipidemia chronic History of atrial myxoma chr onic Hyperlipidemia chronic Premature atrial contractions chronic [facility] Work Phone: Evaluation note* Diagnosis Parkinson's disease 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)- Primary [facility]* Diagnosis Onset Date Resolution Status Brain TIA acute Debility acute Generalized weakness acute Leukocytosis resolved Brain TIA acute Debility acute GERD (gastroesophageal reflux disease) acute Orthostatic hypotension acut e Hyperlipidemia chronic Acute encephalopathy resolve d Syncope resolved History of atrial myxoma chr onic Hyperlipidemia chronic Premature atrial contractions chronic [facility] Work Phone: Evaluation note* Diagnosis Onset Date Resolution Status Debility acute Generalized weakness acute Leukocytosis resolved Brain TIA acute Debility acute GERD (gastroesophageal reflux disease) acute Orthostatic hypotension acut e Hyperlipidemia chronic Acute encephalopathy resolve d Syncope resolved History of atrial myxoma chr onic Hyperlipidemia chronic Premature atrial contractions [facility] Work Phone: Evaluation note* Diagnosis Parkinson's disease 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) documented in this encounter [facility] note* Diagnosis Parkinson's disease 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)- Primary Neurogenic orthostatic hypotension (HCC) documented in this encounter [facility] Discharge instructions* Instructions* Brandon Faye MD - 05/27/2019 OK to move fingers and thumb within confined of splint Ice and elevate for pain control OK to take tylenol/ibuprofen for pain relief Keep bandage on until first post operative appointment documented in this [facility] Work Phone: Hospital Discharge instructions No data available for this section [facility] Hospital Discharge instructions Additional Instructions Elevate your [...] care physician this week to be reevaluated [facility] Work Phone: Progress note No data available for this section [facility] Reason for referral (narrative)* Diagnostic Procedure Only (Routine) - Authorized Specialty Diagnoses / Procedures Referred By Aron ramos Referred To Contact [facility] Diagnoses Encounter for screening mammogram for malignant neoplasm of breast Procedures GLEN SCREENING SCREENING MAMMOGRAPHY BI 2-VIEW BREAST INC Irasema Camacho MD [address] [place] [address] [facility] [address] [place] [address] Referral ID Status Reason Start Date Expiration Date Visits Requested Visits Authorized [id number] Authorized Auto-Generat ed Referral 2 05/04/2023 [address] [facility] for referral (narrative)* Diagnostic Procedure Only (Routine) - Closed Specialty Diagnoses / Procedures Referred By Aron ramos Referred To Contact [facility] Diagnoses Encounter for screening mammogram for malignant neoplasm of breast Procedures GLEN SCREENING SCREENING MAMMOGRAPHY BI 2-VIEW BREAST INC Irasema Camacho MD [address] [place] [address] [facility] [address] [place] [address] Referral ID Status Reason Start Date Expiration Date V isits Requested Visits Authorized [id number] Closed Auto-Generate d Referral 04/04/2022 05/04/2023 1 1 [facility]arrative)No reason for referral information [facility]WReg[facility] Work Phone: Reason for visit Narrative* Diagnostic Procedure Only (Routine) - Closed Specialty Diagnoses / Procedures Referred By Contac t Referred To Contact [facility] Diagnoses Encounter for screening mammogram for malignant neoplasm of breast Procedures GLEN SCREENING SCREENING MAMMOGRAPHY BI 2-VIEW BREAST INC CAD Irasema Armenta MD [address] [place] [address] [facility] [address] [place] [address] Referral ID Status Reason Start Date Expiration Date V isits Requested Visits Authorized [id number] Closed Auto-Generate d Referral 04/04/2022 05/04/2023 1 1 [facility] Discharge Instructions * Instructions* Fariba Ponce [...] please call your surgeon. Please bring your [facility] Surgical Information folder on the day of surgery. Please bring a photo ID and insurance information [facility]: ? Enter through Door number [phone] ? Registration department is located here ? Patient will be escorted to [facility] ? [facility] does not open before 6am documented in this encounter History of Present Illness * Ramses Aguiar - 2019 1:30 PM EST Labs obtained on first attempt with 22 gauge needle at [facility] site, patient tolerated well, site benign. documented in this encounter Advance Directives No Advanced Directives Records FoundDocuments on File Type Date Recorded Patient Waist Cutter Expl anation Advance Directives and Living Will Power of Neon Sign Erector Latest Code Status on File Code Status Date Activated Date Inactivated Comments Full Code 05/27/2019 6:25 AM Advance Directive Response Recorded Date/ Time Living Will No June 17, 019 2:45pm Power of Neon Sign Erector Yes June 17, 2019 2:45pm Advance Directive Response Recorded Date/ Time Name of Medical Power of Neon Sign Erector Belkis Haynes April 14, 2022 1:37pm Living Will Yes April 14 1:37pm Power of Neon Sign Erector Yes April 14, 2022 1:37pm Advance Directive Response Recorded Date/ Time Name of Medical Power of Neon Sign Erector Belkis Haynes April 14, 2022 12:37pm Name of Medical Power of Neon Sign Erector elsa- daughter in law May 12, 2022 12:01p m Living Will Yes May 12, 2 022 12:01pm Power of Neon Sign Erector Yes May 12, 2022 12:01pm Advance Directive Response Recorded Date/ Time Name of Medical Power of Neon Sign Erector elsa- daughter in law May 12, 2022 1:01pm Living Will Yes May 12, 2 022 1:01pm Power of Neon Sign Erector Yes May 12, 2022 1:01pm Advance Directive Response Recorded Date/ Time Living Will Yes May 12, 2 022 1:01pm Power of Neon Sign Erector Yes May 12, 2022 1:01pm Advance Directive Response Recorded Date/ Time Name of Medical Power of Neon Sign Erector ELVIRA HAYNES January 15, 2023 1:25pm Living Will Yes January 15, 2023 1:25pm Power of Neon Sign Erector Yes January 15 1:25pm Advance Directive Response Recorded Date/ Time Name of Medical Power of Neon Sign Erector ELVIRA HAYNES January 15, 2023 12:25pm Living Will Yes January 15, 2023 12:25pm Power of Neon Sign Erector Yes January 15 12:25pm Advance Directive Response Recorded Date/ Time Living Will Yes January 15, 2023 12:25pm Power of Neon Sign Erector Yes January 15 12:25pm Advance Directive Response Recorded Date/ Time Name of Medical Power of Neon Sign Erector belkis haynes June 28, 2023 12:42pm Living Will Yes June 28 12:42pm Power of Neon Sign Erector Yes June 28, 2023 12:42pm Advance Directive Response Recorded Date/ Time Name of Medical Power of Neon Sign Erector Nicole Haynes June 28, 2023 7:34pm Living Will Yes June 28 7:34pm Power of Neon Sign Erector Yes June 28, 2023 7:34pm Advance Directive Response Recorded Date/ Time Name of Medical Power of Neon Sign Erector Nicole Haynes June 28, 2023 7:34pm Name of Medical Power of Neon Sign Erector Mckay (daughter in law) July 28, 2023 9:19am Living Will Yes July 28 9:19am Power of Neon Sign Erector Yes July 28, 2023 9:19am Advance Directive Response Recorded Date/ Time Name of Medical Power of Neon Sign Erector Nicole Haynes June 28, 2023 8:34pm Name of Medical Power of Neon Sign Erector Mckay (daughter in law) July 28, 2023 10:19am Name of Medical Power of Neon Sign Erector son September 08, 2023 10:17am Living Will Yes September 08, 2023 10:17am Power of Neon Sign Erector Yes September 07 10:17am Advance Directive Response Recorded Date/ Time Name of Medical Power of Neon Sign Erector Nicole Haynes June 28, 2023 8:34pm Name of Medical Power of Neon Sign Erector Mckay (daughter in law) July 28, 2023 10:19am Name of Medical Power of Neon Sign Erector Carolann haynes September 08, 2023 2:45pm Living Will Yes September 08, 2023 2:45pm Power of Neon Sign Erector Yes September 07 2:45pm Advance Directive Response Recorded Date/ Time Name of Medical Power of Neon Sign Erector Nicole Haynes June 28, 2023 8:34pm Name of Medical Power of Neon Sign Erector Mckay (daughter in law) July 28, 2023 10:19am Name of Medical Power of Neon Sign Erector Belkis Haynes primary; alternative sons, Elvira and Gonzalez Haynes September 18, 2023 2:51pm Living Will No September 18, 2023 2:51pm Power of Neon Sign Erector Yes September 17 2:51pm Name of Medical Power of Neon Sign Erector Carolann haynes September 08, 2023 2:45pm Advance Directive Response Recorded Date/ Time Name of Medical Power of Neon Sign Erector Mckay (daughter in law) July 28, 2023 10:19am Name of Medical Power of Neon Sign Erector Belkis Haynes primary; alternative Elvira sanz and Gonzalez Haynes September 18, 2023 2:51pm Living Will No September 18, 2023 2:51pm Power of Neon Sign Erector Yes September 17 2:51pm Name of Medical Power of Neon Sign Erector Carolann haynes September 08, 2023 2:45pm Summary [...] DEBILITY DEBILITY DEBILITY ABN HOLTER (SEE NOTES) PRISON LAB WORK Reason for Visit Brain TIA [...] DEBILITY DEBILITY DEBILITY ABN HOLTER (SEE NOTES) PRISON LAB WORK Reason for Visit Debility Generalized [...] STENOSIS. RX HERE Chief Complaint Admit Date PRISON LAB WORK May 22, 2024 5:00am MONTHLY EXAM May 29, 2024 6:26pm PRISON LAB WORK June 10 5:00am NEW CONCERN June 17, 2024 1:14pm LABWORK June 19, 2024 5: 00am PRISON LAB WORK June 26, 2024 5:45am MONTHLY EXAM July 01, 2024 3 :35pm PRISON LAB WORK July 17, 2024 5:00am NEW CONCERN July 31, 2024 1:57pm PRISON LAB WORK August 14 4:00am Chief Complaint Admit Date PRISON LAB WORK June 10 5:00am NEW CONCERN June 17, 2024 1:14pm LABWORK June 19, 2024 5: 00am PRISON LAB WORK June 26, 2024 5:45am MONTHLY EXAM July 01, 2024 3 :35pm PRISON LAB WORK July 17, 2024 5:00am NEW CONCERN July 31, 2024 1:57pm PRISON LAB WORK August 14 4:00am MONTHLY EXAM August 26, 2024 2:4 0pm PRISON LAB WORK September 11, 2024 5 :00am Chief Complaint Admit Date PRISON LAB WORK July 17, 2024 5:00am NEW CONCERN July 31, 2024 1:57pm PRISON LAB WORK August 14 4:00am MONTHLY EXAM August 26, 2024 2:4 0pm PRISON LAB WORK September 11, 2024 5 :00am PRISON LAB WORK September 18, 2024 5: 00am LABWORK October 22, 2024 5:00am Chief Complaint Admit Date PRISON LAB WORK August 14 4:00am MONTHLY EXAM August 26, 2024 2:4 0pm PRISON LAB WORK September 11, 2024 5 :00am Acute September 17, 2024 3:57 pm PRISON LAB WORK September 18, 2024 5: 00am LABWORK October 22, 2024 5:00am PRISON LAB WORK October 23, 2024 4:00 am LABWORK November 27, 2024 5:00 am Chief Complaint Admit Date PRISON LAB WORK August 14 4:00am MONTHLY EXAM August 26, 2024 2:4 0pm PRISON LAB WORK September 11, 2024 5 :00am Acute September 17, 2024 3:57 pm PRISON LAB WORK September 18, 2024 5: 00am LABWORK October 22, 2024 5:00am PRISON LAB WORK October 23, 2024 4:00 am NEW CONCERN November 07, 2024 1:38p m LABWORK November 27, 2024 5:00 am Chief Complaint Admit Date PRISON LAB WORK September 11, 2024 5 :00am Acute September 17, 2024 3:57 pm PRISON LAB WORK September 18, 2024 5: 00am LABWORK October 22, 2024 5:00am PRISON LAB WORK October 23, 2024 4:00 am NEW CONCERN November 07, 2024 1:38p m New Problem November 17, 2024 3:30p m LABWORK November 27, 2024 5:00 am Chief Complaint Admit Date PRISON LAB WORK September 11, 2024 5 :00am Acute September 17, 2024 3:57 pm PRISON LAB WORK September 18, 2024 5: 00am LABWORK October 22, 2024 5:00am PRISON LAB WORK October 23, 2024 4:00 am NEW CONCERN November 07, 2024 1:38p m New Problem November 17, 2024 3:30p m Monthly Visit November 18, 2024 9:13p m Urgent Visit November 26, 2024 5:14 pm LABWORK November 27, 2024 5:00 am Chief Complaint Admit Date PRISON LAB WORK September 11, 2024 5 :00am Acute September 17, 2024 3:57 pm PRISON LAB WORK September 18, 2024 5: 00am LABWORK October 22, 2024 5:00am PRISON LAB WORK October 23, 2024 4:00 am NEW CONCERN November 07, 2024 1:38p m New Problem November 17, 2024 3:30p m Monthly Visit November 18, 2024 9:13p m LABWORK November 27, 2024 5:00 am Chief Complaint Admit Date Acute September 17, 2024 3:57 pm PRISON LAB WORK September 18, 2024 5: 00am NEW CONCERN October 21, 2024 4:35pm LABWORK October 22, 2024 5:00am PRISON LAB WORK October 23, 2024 4:00 am NEW CONCERN November 07, 2024 1:38p m New Problem November 17, 2024 3:30p m Monthly Visit November 18, 2024 9:13p m Urgent Visit November 26, 2024 5:14 pm LABWORK November 27, 2024 5:00 am PRISON LAB WORK December 25, 2024 5: 00am LABWORK January 02, 2025 5:00 am Chief Complaint Admit Date NEW CONCERN October 21, 2024 4:35pm LABWORK October 22, 2024 5:00am PRISON LAB WORK October 23, 2024 4:00 am NEW CONCERN November 07, 2024 1:38p m New Problem November 17, 2024 3:30p m Monthly Visit November 18, 2024 9:13p m Urgent Visit November 26, 2024 5:14 pm LABWORK November 27, 2024 5:00 am PRISON LAB WORK December 25, 2024 5: 00am Urgent Exam December 31, 2024 4:50 pm LABWORK January 02, 2025 5:00 am Chief Complaint Admit Date NEW CONCERN October 21, 2024 4:35pm LABWORK October 22, 2024 5:00am PRISON LAB WORK October 23, 2024 4:00 am NEW CONCERN November 07, 2024 1:38p m New Problem November 17, 2024 3:30p m Monthly Visit November 18, 2024 9:13p m Urgent Visit November 26, 2024 5:14 pm LABWORK November 27, 2024 5:00 am PRISON LAB WORK December 25, 2024 5: 00am Urgent Exam December 31, 2024 4:50 pm LABWORK January 02, 2025 5:00 am New Concern January 09, 2025 1:26 pm Chief Complaint Admit Date NEW CONCERN October 21, 2024 4:35pm LABWORK October 22, 2024 5:00am PRISON LAB WORK October 23, 2024 4:00 am NEW CONCERN November 07, 2024 1:38p m New Problem November 17, 2024 3:30p m Monthly Visit November 18, 2024 9:13p m Urgent Visit November 26, 2024 5:14 pm LABWORK November 27, 2024 5:00 am PRISON LAB WORK December 25, 2024 5: 00am Urgent Exam December 31, 2024 4:50 pm LABWORK January 02, 2025 5:00 am New Concern January 09, 2025 1:26 pm MONTHLY EXAM January 20, 2025 3:5 8pm Chief Complaint Admit Date PRISON LAB WORK October 23, 2024 4:00 am NEW CONCERN November 07, 2024 1:38p m New Problem November 17, 2024 3:30p m Monthly Visit November 18, 2024 9:13p m Urgent Visit November 26, 2024 5:14 pm LABWORK November 27, 2024 5:00 am PRISON LAB WORK December 25, 2024 5: 00am Urgent Exam December 31, 2024 4:50 pm LABWORK January 02, 2025 5:00 am New Concern January 09, 2025 1:26 pm MONTHLY EXAM January 20, 2025 3:5 8pm PRISON LAB WORK January 29, 2025 5:00am Urgent [...] pm LABWORK November 27, 2024 5:00 am PRISON LAB WORK December 25, 2024 5: 00am Urgent Exam December 31, 2024 4:50 pm LABWORK January 02, 2025 5:00 am New Concern January 09, 2025 1:26 pm MONTHLY EXAM January 20, 2025 3:5 8pm PRISON LAB WORK January 29, 2025 5:00am Urgent visit exam February 05, 2025 3: 06pm 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 February 13, 2025 1:02pm Reason for Referral Specialty Diagnoses / Procedures Referred By Aron t Referred To Contact Diagnoses Parkinson's disease 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) Procedures PROVIDER ORDERED FOLLOW UP OFFICE/OUTPATIENT NEW [facility] 60 MINUTES Selvin Felder MD [address] [place] [id number] Referral ID Status Reason Start Date Expiration Date Visits Requested Visits Authorized [id number] Authorized PCP Requested Referral 10/18/2023 01/16/2024 1 1 Specialty Diagnoses / Procedures Referred By Contac t Referred To Contact Diagnoses Parkinson's disease (HCC) Abnormality of 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) Procedures PROVIDER ORDERED FOLLOW UP OFFICE/OUTPATIENT NEW HIGH MDM 60-74 MINUTES Sridevi Solo MD 0 [facility] [place] [address] Referral ID Status Reason Start Date Expiration Date Visits Requested Visits Authorized [id number] Pending Review PCP Requested Referral 07/05/2022 10/03/2022 1 1 Specialty Diagnoses / Procedures Referred By Contact Referred To Contact [facility] Diagnoses Parkinson's disease (HCC) Abnormality of 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) Procedures CONSULT TO PHYSICAL THERAPY PHYSICAL THERAPY EVALUATION HIGH COMPLEX 45 MINS Sridevi Solo MD [address] [place] [address] [facility] [place] [address] [place] [address] Referral ID Status Reason Start Date Expiration Date Visits Requested Visits Authorized [id number] Pending Review Auto-Generat ed Referral 07/05/2022 07/05/2023 1 1 Specialty Diagnoses / Procedures Referred By Contac t Referred To Contact CT IMAGING Diagnoses 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 Procedures CT ABD/PEL WO IVCON CT ABD & PELVIS W/O CONTRAST Bart Brooks, DO [address] [place] [address] Ct Imaging Referral ID Status Reason Start Date Expiration Date Visits Requested Visits Authorized [id number] Pending Review Auto-Generat ed Referral 02/14/2022 03/16/2023 1 1 Additional Source Comments INFORMATION SOURCE (unrecogn ized section and content) DATE CREATED AUTHOR 06/23/2019 [facility] DATE CREATED AUTHOR AUTHOR'S ORGANIZ ATION 06/01/2020 [facility] DATE CREATED AUTHOR AUTHOR'S ORGANIZ ATION 02/16/2023 [facility] DATE CREATED AUTHOR AUTHOR'S ORGANIZ ATION 03/23/2023 [facility] DATE CREATED AUTHOR AUTHOR'S ORGANIZ ATION 10/23/2024 [facility] DATE CREATED AUTHOR AUTHOR'S ORGANIZ ATION 04/29/2025 [facility] Source Comments (unrecognize d section and content) In the event this informatio n is protected by the Federal Confidentiality of Alcohol and Drug Abuse Patient Records regulations: The Federal rules restrict any use of the information to criminally investigate or prosecute any alcohol or drug abuse patient.[facility] the event this information is protected by the Federal Confidentiality of Alcohol and Drug Abuse Patient Records regulations: The Federal rules restrict any use of the information to criminally investigate or prosecute any alcohol or drug abuse patient.[facility] the event this information is protected by the Federal Confidentiality of Alcohol and Drug Abuse Patient Records regulations: The Federal rules restrict any use of the information to criminally investigate or prosecute any alcohol or drug abuse patient.[facility] the event this information is protected by the Federal Confidentiality of Alcohol and Drug Abuse Patient Records regulations: The Federal rules restrict any use of the information to criminally investigate or prosecute any alcohol or drug abuse patient.[facility] the event this information is protected by the Federal Confidentiality of Alcohol and Drug Abuse Patient Records regulations: The Federal rules restrict any use of the information to criminally investigate or prosecute any alcohol or drug abuse patient.[facility] the event this information is protected by the Federal Confidentiality of Alcohol and Drug Abuse Patient Records regulations: The Federal rules restrict any use of the information to criminally investigate or prosecute any alcohol or drug abuse patient.[facility] the event this information is protected by the Federal Confidentiality of Alcohol and Drug Abuse Patient Records regulations: The Federal rules restrict any use of the information to criminally investigate or prosecute any alcohol or drug abuse patient.[facility] the event this information is protected by the Federal Confidentiality of Alcohol and Drug Abuse Patient Records regulations: The Federal rules restrict any use of the information to criminally investigate or prosecute any alcohol or drug abuse patient.[facility] the event this information is protected by the Federal Confidentiality of Alcohol and Drug Abuse Patient Records regulations: The Federal rules restrict any use of the information to criminally investigate or prosecute any alcohol or drug abuse patient.[facility] the event this information is protected by the Federal Confidentiality of Alcohol and Drug Abuse Patient Records regulations: The Federal rules restrict any use of the information to criminally investigate or prosecute any alcohol or drug abuse patient.[facility] the event this information is protected by the Federal Confidentiality of Alcohol and Drug Abuse Patient Records regulations: The Federal rules restrict any use of the information to criminally investigate or prosecute any alcohol or drug abuse patient.[facility] Hospital[facility] the event this information is protected by the Federal Confidentiality of Alcohol and Drug Abuse Patient Records regulations: The Federal rules restrict any use of the information to criminally investigate or prosecute any alcohol or drug abuse patient.[facility] HospitalIn the event this information is protected by the Federal Confidentiality of Alcohol and Drug Abuse Patient Records regulations: The Federal rules restrict any use of the information to criminally investigate or prosecute any alcohol or drug abuse patient.[facility] Hospital[facility] the event this information is protected by the Federal Confidentiality of Alcohol and Drug Abuse Patient Records regulations: The Federal rules restrict any use of the information to criminally investigate or prosecute any alcohol or drug abuse patient.[facility] Hospital[facility] the event this information is protected by the Federal Confidentiality of Alcohol and Drug Abuse Patient Records regulations: The Federal rules restrict any use of the information to criminally investigate or prosecute any alcohol or drug abuse patient.[facility] HospitalIn the event this information is protected by the Federal Confidentiality of Alcohol and Drug Abuse Patient Records regulations: The Federal rules restrict any use of the information to criminally investigate or prosecute any alcohol or drug abuse patient.[facility] HospitalIn the event this information is protected by the Federal Confidentiality of Alcohol and Drug Abuse Patient Records regulations: The Federal rules restrict any use of the information to criminally investigate or prosecute any alcohol or drug abuse patient.[facility] HospitalIn the event this information is protected by the Federal Confidentiality of Alcohol and Drug Abuse Patient Records regulations: The Federal rules restrict any use of the information to criminally investigate or prosecute any alcohol or drug abuse patient.[facility] Hospital[facility] the event this information is protected by the Federal Confidentiality of Alcohol and Drug Abuse Patient Records regulations: The Federal rules restrict any use of the information to criminally investigate or prosecute any alcohol or drug abuse patient.[facility] HospitalIn the event this information is protected by the Federal Confidentiality of Alcohol and Drug Abuse Patient Records regulations: The Federal rules restrict any use of the information to criminally investigate or prosecute any alcohol or drug abuse patient.[facility] HospitalIn the event this information is protected by the Federal Confidentiality of Alcohol and Drug Abuse Patient Records regulations: The Federal rules restrict any use of the information to criminally investigate or prosecute any alcohol or drug abuse patient.[facility] HospitalIn the event this information is protected by the Federal Confidentiality of Alcohol and Drug Abuse Patient Records regulations: The Federal rules restrict any use of the information to criminally investigate or prosecute any alcohol or drug abuse patient.[facility] HospitalIn the event this information is protected by the Federal Confidentiality of Alcohol and Drug Abuse Patient Records regulations: The Federal rules restrict any use of the information to criminally investigate or prosecute any alcohol or drug abuse patient.[facility] HospitalIn the event this information is protected by the Federal Confidentiality of Alcohol and Drug Abuse Patient Records regulations: The Federal rules restrict any use of the information to criminally investigate or prosecute any alcohol or drug abuse patient.[facility] HospitalIn the event this information is protected by the Federal Confidentiality of Alcohol and Drug Abuse Patient Records regulations: The Federal rules restrict any use of the information to criminally investigate or prosecute any alcohol or drug abuse patient.[facility] HospitalIn the event this information is protected by the Federal Confidentiality of Alcohol and Drug Abuse Patient Records regulations: The Federal rules restrict any use of the information to criminally investigate or prosecute any alcohol or drug abuse patient.[facility] Reason for Visit (unrecogniz ed section and content) Reason Comments Parkinson's Disease Specialty Diagnoses / Procedures Referred By Contac t Referred To Contact Diagnoses Parkinson's disease 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) Procedures PROVIDER ORDERED FOLLOW UP OFFICE/OUTPATIENT [facility] 60 MINUTES Selvin Felder MD [address] [address] Referral ID Status Reason Start Date Expiration Date V isits Requested Visits Authorized [id number] Closed PCP Requested Referral 10/18/2023 01/16/2024 1 [...] HIGH COMPLEX 45 MINS Sridevi Solo MD [address] [place] [address] Tejal Willard, PT [address] [place] [address] Referral ID Status Reason Start Date Expiration Date V isits Requested Visits Authorized [id number] Authorized 07/05/2022 07/05/2023 1 99 Reason Comments Established Patient Reason Comments Patient Request Reason Comments Follow Up Specialty Diagnoses / Procedures Referred By Contac t Referred To Contact Diagnoses Tongue biting Procedures PROVIDER ORDERED FOLLOW UP Selvin Felder MD [address] [address] Referral ID Status Reason Start Date Expiration Date V isits Requested Visits Authorized [id number] Closed PCP Requested Referral 10/03/2022 01/01/2023 1 1 Reason Comments Patient Question Reason Onset Date Comments Refill Request 07/30/2023 Reason Comments Appointment Specialty Diagnoses / Procedures Referred By Contac t Referred To Contact Diagnoses Parkinson's disease 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) Procedures PROVIDER ORDERED FOLLOW UP OFFICE/OUTPATIENT NEW HIGH MDM 60 MINUTES Selvin Felder MD [address] [address] Phone: tel: fax: Referral ID Status Reason Start Date Expiration Date V isits Requested Visits Authorized [id number] Closed PCP Requested Referral 04/21/2024 07/20/2024 1 1 Care Teams (unrecognized sec tion and content) Wedding Consultant Relationship Specialty Start Date End Date Howard Zimmerman Chi PCP - General Gerontology 11/23/14 Wedding Consultant Relationship Specialty Start Date End Date Erasmo, Howard Chi PCP - General Gerontology 11/23/14 Wedding Consultant Relationship Specialty Start Date End Date Erasmo, Howard Chi PCP - General Gerontology 11/23/14 Wedding Consultant Relationship Specialty Start Date End Date Erasmo, Howard Chi PCP - General Gerontology 11/23/14 Wedding Consultant Relationship Specialty Start Date End Date Erasmo, Howard Chi PCP - General Gerontology 11/23/14 Wedding Consultant Relationship Specialty Start Date End Date Erasmo, Howard Chi PCP - General Gerontology 11/23/14 Wedding Consultant Relationship Specialty Start Date End Date Erasmo, Howard Chi PCP - General Gerontology 11/23/14 Wedding Consultant Relationship Specialty Start Date End Date [...] MD Primary Care Provider Active Rhoda Mercado LITERACY CONSULTANT, LITERACY CONSULTANT-C Other Provider Active Paige BRUNSON, PA Attending Provider Active Team Status: Active Member Role Status Dates Dr. Howard Zimmerman MD Primary Care Provider Active Rhoda Mercado LITERACY CONSULTANT, LITERACY CONSULTANT-C Attending Provider, Other Pro vider Active Team [...] Status: Inactive Member Role Status Dates Dr. Hoawrd Zimmerman MD Primary Care Provider Active Rhoda Mercado LITERACY CONSULTANT, LITERACY CONSULTANT-C Attending Provider Active Wedding Consultant Relationship Specialty Start Date End Date [...] Status: Inactive Member Role Status Dates Dr. Howadr Zimmerman MD Primary Care Provider Active Dr. [...] DO Admit Provider, Attending Pro vider Active Wedding Consultant Relationship Specialty Start Date End Date Howard Zimmerman Chi PCP - General Gerontology 11/23/14 Team Status: Active Member Role Status Dates Dr. Howard Zimmerman MD Primary Care Provider Active Dr. Drake Beck MD Attending Provider, Referring Provider Active Wedding Consultant Relationship Specialty Start Date End Date Howard Zimmerman Chi PCP - General Gerontology 11/23/14 Wedding Consultant Relationship Specialty Start Date End Date [...] Karen Mckeon MD Other Provider Active Darcy Hernnadez MD Other Provider Active Dr. Paige Martinez [...] Dr. Umesh Velázquez MD Emergency Provider Active Wedding Consultant Relationship Specialty Start Date End Date Howard Zimmerman Chi PCP - General Gerontology 11/23/14 Wedding Consultant Relationship Specialty Start Date End Date Howard Zimmerman Chi PCP - General Gerontology 11/23/14 Wedding Consultant Relationship Specialty Start Date End Date [...] Provi misha, Admit Provider, Attending Provider Active Wedding Consultant Relationship Specialty Start Date End Date Howard Zimmerman Chi PCP - General Gerontology 11/23/14 Team Status: Inactive Member Role Status Dates Dr. Howard Zimmerman MD Primary Care Provider Active Odalis MERCER MD Attending Provider, Referring Provider Active Team Status: Active Member Role Status Dates Dr. Howard Zimmerman MD Primary Care Provider Active Odalis MERCER MD Attending Provider Active Wedding Consultant Relationship Specialty Start Date End Date Howard Zimmerman Chi PCP - General Gerontology 11/23/14 Wedding Consultant Relationship Specialty Start Date End Date [...] End: May 29, 2024 Pam Pack NP LITERACY CONSULTANT-C Attending Provider Active Start: May 29, 2024 [...] End: July 31, 2024 Pam Pack NP LITERACY CONSULTANT-C Attending Provider Active Start: July 31, 2024 [...] September 11, 2024 End: September 11, 2024 Wedding Consultant Relationship Specialty Start Date End Date Howrad Zimmerman Chi PCP - General Gerontology 11/23/14 [...] October 22, 2024 End: October 22, 2024 Odails MERCER MD Attending Provider Active Start: October [...] End: September 17, 2024 Pam Pack NP LITERACY CONSULTANT-C Attending Provider Active Start: September 17, 2024 [...] End: November 07, 2024 Pam Pack NP LITERACY CONSULTANT-C Attending Provider Active Start: November 07, 2024 [...] End: September 17, 2024 Pam Pack NP LITERACY CONSULTANT-C Attending Provider Active Start: September 17, 2024 [...] End: November 07, 2024 Pam Pack NP LITERACY CONSULTANT-C Attending Provider Active Start: November 07, 2024 End: November 07, 2024 Team Status: Inactive Member Role/Relationship Status Dates Dr. Howard Zimmerman MD Primary Care Provider Active Start: November 17, 2024 End: November 17, 2024 Pam Pack NP LITERACY CONSULTANT-C Attending Provider Active Start: November 17, 2024 [...] 2024 End: November 26, 2024 Pam Pack LITERACY CONSULTANT, LITERACY CONSULTANT-C Attending Provider Active Start: November 26, 2024 [...] 2024 End: September 17, 2024 Pam Pack LITERACY CONSULTANT, LITERACY CONSULTANT-C Attending Provider Active Start: September 17, 2024 [...] 2024 End: October 21, 2024 Pam Pack LITERACY CONSULTANT, LITERACY CONSULTANT-C Attending Provider Active Start: October 21, 2024 End: October 21, 2024 Team Status: Inactive Member Role/Relationship Status Dates Dr. Howard Zimmerman MD Primary Care Provider Active Start: October 21, 2024 End: October 21, 2024 Pam Pack LITERACY CONSULTANT, LITERACY CONSULTANT-C Attending Provider Active Start: October 21, 2024 [...] 2024 End: November 07, 2024 Pam Pack LITERACY CONSULTANT, LITERACY CONSULTANT-C Attending Provider Active Start: November 07, 2024 End: November 07, 2024 Team Status: Inactive Member Role/Relationship Status Dates Dr. Howard Zimmerman MD Primary Care Provider Active Start: November 17, 2024 End: November 17, 2024 Pam Pack LITERACY CONSULTANT, LITERACY CONSULTANT-C Attending Provider Active Start: November 17, 2024 [...] 2024 End: November 26, 2024 Pam Pack LITERACY CONSULTANT, LITERACY CONSULTANT-C Attending Provider Active Start: November 26, 2024 End: November 26, 2024 Team Status: Inactive Member Role/Relationship Status Dates Dr. Howard Zimmerman MD Primary Care Provider Active Start: December 31, 2024 End: December 31, 2024 Pam Pack LITERACY CONSULTANT, LITERACY CONSULTANT-C Attending Provider Active Start: December 31, 2024 End: December 31, 2024 Team Status: Inactive Member Role/Relationship Status Dates Dr. Howard Zimmerman MD Primary Care Provider Active Start: January 09, 2025 End: January 09, 2025 Pam Pack LITERACY CONSULTANT, LITERACY CONSULTANT-C Attending Provider Active Start: January 09, 2025 [...] 2024 End: November 07, 2024 Pam Pack LITERACY CONSULTANT, LITERACY CONSULTANT-C Attending Provider Active Start: November 07, 2024 End: November 07, 2024 Team Status: Inactive Member Role/Relationship Status Dates Dr. Howard Zimmemran MD Primary Care Provider Active Start: November 17, 2024 End: November 17, 2024 Pam Pack LITERACY CONSULTANT, LITERACY CONSULTANT-C Attending Provider Active Start: November 17, 2024 [...] 2024 End: November 26, 2024 Pam Pack LITERACY CONSULTANT, LITERACY CONSULTANT-C Attending Provider Active Start: November 26, 2024 [...] End: December 31, 2024 Pam Pack NP, LITERACY CONSULTANT-C Attending Provider Active Start: December 31, 2024 [...] End: January 09, 2025 Pam Pack NP, LITERACY CONSULTANT-C Attending Provider Active Start: January 09, 2025 [...] 2025 End: February 05, 2025 Pam Pack LITERACY CONSULTANT, LITERACY CONSULTANT-C Attending Provider Active Start: February 05, 2025 [...] November 07, 2024 End: November 07, 2024 aPm Pack NP, LITERACY CONSULTANT-C Attending physician Active Start: November 07, 2024 End: November 07, 2024 Team Status: Inactive Member Role/Relationship Status Dates Dr. Howard Zimmerman MD Primary care physician Active Start: November 17, 2024 End: November 17, 2024 Pam Pack NP, LITERACY CONSULTANT-C Attending physician Active Start: November 17, 2024 [...] End: November 26, 2024 Pam Pack NP, LITERACY CONSULTANT-C Attending physician Active Start: November 26, 2024 [...] End: December 31, 2024 Pam Pack NP, LITERACY CONSULTANT-C Attending physician Active Start: December 31, 2024 [...] End: January 09, 2025 Pam Pack NP, LITERACY CONSULTANT-C Attending physician Active Start: January 09, 2025 End: January 09, 2025 Team Status: Inactive Member Role/Relationship Status Dates Dr. Howard Zimmerman MD Primary care physician Active Start: January 20, 2025 End: January 20, 2025 Dr. Odalis Saravia MD Attending physician Active Start: January [...] End: February 05, 2025 Pam Pack NP, LITERACY CONSULTANT-C Attending physician Active Start: February 05, 2025 [...] BE BASED ON THE PRIMARY CLINICAL RECORDS. [facility]. provides no warranty or guarantee of the accuracy or completeness of information in this document.
[2025-05-28 08:29] LABS: Hematocrit 35.7 % (37-47); Hemoglobin 11.7 g/dL (12.0-15.0); Immature Granulocytes Count 0.100 X10^3/uL (0.0-0.0); Mean Corp Hgb Conc 32.8 g/dL (32-36); Mean Corpuscular Volume 96.2 fL (81-99); Mean Platelet Vol. 10.2 fl (6.2-12.0); NRBC Flagged by Analyzer 0 % (0-5); POSITIVE DIFFERENTIAL YES; POSITIVE MORPHOLOGY YES; Platelet Count 400 K/mm3 (150-450); RBC Distribution Width CV 13.2 % (11.6-14.6); RBC Distribution Width SD 46.6 fl (35.1-43.9); Red Blood Count 3.71 M/mm3 (4.2-5.4); White Blood Count 21.9 K/mm3 (4.4-11.0)
[2025-05-28 08:38] LABS: Differential Indicated SCAN CRITERIA MET
[2025-05-28 09:03] LABS: Scan Smear per Review Criteria MANUAL DIFF
[2025-05-28 09:06] LABS: Neutrophil-Segmented 40 % (47-70); Total Cells Counted 100 (MANUAL DIFF)
[2025-05-28 09:07] LABS: Red Cell Morphology NORM C+C NORMAL (NORM C&C)
[2025-05-28 09:12] LABS: Anion Gap 11 (5-15); BUN 26 mg/dL (4-19); BUN/Creat Ratio 23.9 RATIO (10-20); Calcium,Total 9.3 mg/dL (7.6-11.0); Carbon Dioxide 23.6 mmol/L (21.0-32.0); Chloride 102 mmol/L (98-108); Glucose 91 mg/dL (70-99); Potassium 4.4 mmol/L (3.3-5.1)
== END ==
LOC: OLS.WHLTSB 05:00
PROVIDERS: PCP Family Medicine Geriatric Medicine; Visit Provider Internal Medicine
DX: N18.30 Chronic kidney disease, stage 3 unspecified (principal)
CPT/HCPCS: 36415; 80048; 85025